=== PATIENT | female | born 1940 | race Caucasian/White ===

== ENCOUNTER 2018-07-28 20:59 | Outpatient (REF) | payer OTHER, SELFPAY ==
[2018-07-28 21:21] LABS: HCT 39.3 % (36.0-46.0); HGB 13.4 g/dL (12.0-15.5); Mean Corp. HGB Concentration 34.1 g/dL (32.0-36.0); Mean Corpuscular Hemoglobin 31.8 pg (27.0-33.0); Mean Corpuscular Volume 93.3 fL (80-95); Mean Platelet Volume 12.4 fL (8.0-11.0); RBC 4.21 m/cumm (4.00-5.20); RBC Distribution Width 13.1 % (11.7-14.6); White Blood Cell Count 5.16 k/cumm (4.4-10.8)
[2018-07-28 21:24] LABS: Platelet Count 102 x1000/uL (130-400)
[2018-07-28 22:44] LABS: TSH 2.44 uIU/mL (0.358-3.74)
[2018-07-28 23:32] LABS: Ferritin 80 ng/mL (8-388); Vitamin B12 361 pg/mL (193-986)
== END 2018-07-28 21:19 ==
LOC: NCHCN 20:59
PROVIDERS: PCP Nurse Practitioner Family; Visit Provider Nurse Practitioner Family
DX: E11.49 Type 2 diabetes mellitus with other diabetic neurological complication (principal); G25.81 Restless legs syndrome; I10 Essential (primary) hypertension; R53.83 Other fatigue
CPT/HCPCS: 85027; 82607; 82728; 84443

== ENCOUNTER 2018-10-27 11:48 | Outpatient (REF) | payer OTHER, SELFPAY ==
[2018-10-27 20:58] LABS: COMMENT (LAB VIEW ONLY) 81.17 mg/dL; Microalb ug/mg Crea 37.7 ug/mg Cr
== END 2018-10-27 12:08 ==
LOC: NCHCN 11:48
PROVIDERS: PCP Nurse Practitioner Family; Visit Provider Nurse Practitioner Family
DX: E11.49 Type 2 diabetes mellitus with other diabetic neurological complication (principal); K72.90 Hepatic failure, unspecified without coma; B37.2 Candidiasis of skin and nail; J06.9 Acute upper respiratory infection, unspecified; G25.81 Restless legs syndrome
CPT/HCPCS: 82043; 82570

== ENCOUNTER 2019-01-26 15:13 | Outpatient (REF) | payer OTHER, SELFPAY ==
[2019-01-26 22:21] LABS: ALT 40 U/L (14-59); AST 30 U/L (15-37); Albumin 3.7 g/dL (3.4-5.0); Alkaline Phosphatase 98 U/L (46-116); BUN 16 mg/dL (7-18); Bilirubin, Total 0.5 mg/dL (0.2-1.0); CREATININE 0.71 mg/dL (0.55-1.02); Calcium 9.6 mg/dL (8.5-10.1); Calculated LDL 74 mg/dL; Chloride 102 mmol/L (98-107); Cholesterol 165 mg/dL (50-200); Glucose 183 mg/dL (70-100); HDL Cholesterol 33 mg/dL (40-60); Potassium 3.8 mmol/L (3.5-5.1); Sodium 140 mmol/L (136-145); Total Protein 7.1 g/dL (6.4-8.2); Triglyceride 293 mg/dL (30-150)
== END 2019-01-26 15:33 ==
LOC: NCHCN 15:13
PROVIDERS: PCP Nurse Practitioner Family; Visit Provider Nurse Practitioner Family
DX: E78.2 Mixed hyperlipidemia (principal); I10 Essential (primary) hypertension
CPT/HCPCS: 80053; 80061

== ENCOUNTER 2019-08-05 12:12 | Outpatient (REF) | payer OTHER, SELFPAY ==
[2019-08-05 20:47] LABS: HCT 41.3 % (36.0-46.0); HGB 13.8 g/dL (12.0-15.5); Mean Corp. HGB Concentration 33.4 g/dL (32.0-36.0); Mean Corpuscular Hemoglobin 30.9 pg (27.0-33.0); Mean Corpuscular Volume 92.6 fL (80-95); Mean Platelet Volume 12.3 fL (8.0-11.0); Platelet Count 120 x1000/uL (130-400); RBC 4.46 m/cumm (4.00-5.20); RBC Distribution Width 12.6 % (11.7-14.6)
[2019-08-05 20:49] LABS: ALT 47 U/L (14-59); AST 33 U/L (15-37); Albumin 3.9 g/dL (3.4-5.0); Alkaline Phosphatase 110 U/L (46-116); Anion Gap 7.1 mmol/L (3-11); BUN 20 mg/dL (7-18); Bilirubin, Total 0.5 mg/dL (0.2-1.0); CO2 28.9 mmol/L (21.0-32.0); CREATININE 0.82 mg/dL (0.55-1.02); Calcium 9.3 mg/dL (8.5-10.1); Chloride 100 mmol/L (98-107); Glucose 264 mg/dL (74-106); Potassium 3.9 mmol/L (3.5-5.1); Sodium 136 mmol/L (136-145); Total Protein 7.5 g/dL (6.4-8.2)
[2019-08-05 20:52] LABS: Prothrombin Time 10.3 sec (9.3-11.0)
[2019-08-05 20:58] LABS: Hemoglobin A1C 7.7 % (3.8-5.6)
== END 2019-08-05 12:32 ==
LOC: NCHCN 12:12
PROVIDERS: PCP Nurse Practitioner Family; Visit Provider Nurse Practitioner Family
DX: E11.49 Type 2 diabetes mellitus with other diabetic neurological complication (principal); I10 Essential (primary) hypertension; K21.9 Gastro-esophageal reflux disease without esophagitis; K74.69 Other cirrhosis of liver
CPT/HCPCS: 80053; 85027; 83036; 85610

== ENCOUNTER 2019-09-01 20:53 | Outpatient (REF) | payer OTHER, SELFPAY | END 2019-09-01 21:13 | LOC: NCHCN 20:53 | PROVIDERS: PCP Nurse Practitioner Family; Visit Provider Nurse Practitioner Family | DX: N39.0 Urinary tract infection, site not specified (principal) | CPT/HCPCS: 87086 ==

== ENCOUNTER 2019-10-16 21:41 | Outpatient (REF) | payer OTHER, SELFPAY | END 2019-10-16 22:01 | LOC: NCHCN 21:41 | PROVIDERS: PCP Nurse Practitioner Family; Visit Provider Nurse Practitioner Family | DX: R82.998 Other abnormal findings in urine (principal); Z87.440 Personal history of urinary (tract) infections | CPT/HCPCS: 87086 ==

== ENCOUNTER 2019-11-10 21:25 | Outpatient (REF) | payer OTHER, SELFPAY ==
[2019-11-10 21:51] LABS: COMMENT (LAB VIEW ONLY) 55.73 mg/dL; Microalb ug/mg Crea 97.3 ug/mg Cr
== END 2019-11-10 21:45 ==
LOC: NCHCN 21:25
PROVIDERS: PCP Nurse Practitioner Family; Visit Provider Nurse Practitioner Family
DX: E11.49 Type 2 diabetes mellitus with other diabetic neurological complication (principal); K76.6 Portal hypertension; R39.9 Unspecified symptoms and signs involving the genitourinary system
CPT/HCPCS: 87077; 82043; 82570; 87086; 87186

== ENCOUNTER 2020-06-14 15:02 | Outpatient (REF) | payer MEDICARE, SELFPAY | END 2020-06-14 15:03 | disposition home or self-care (01) | LOC: NCHCN 15:02 | PROVIDERS: PCP Nurse Practitioner Family; Visit Provider Nurse Practitioner Family | DX: N39.0 Urinary tract infection, site not specified (principal) | CPT/HCPCS: 87077; 87086; 87186 ==

== ENCOUNTER 2020-06-28 12:31 | Outpatient (REF) | payer MEDICARE, SELFPAY ==
[2020-06-28 14:07] LABS: COMMENT (LAB VIEW ONLY) 86.91 mg/dL; Microalb ug/mg Crea 31.8 ug/mg Cr
== END 2020-06-28 12:32 | disposition home or self-care (01) ==
LOC: NCHCN 12:31
PROVIDERS: PCP Nurse Practitioner Family; Visit Provider Nurse Practitioner Family
DX: E11.49 Type 2 diabetes mellitus with other diabetic neurological complication (principal); E78.5 Hyperlipidemia, unspecified; R80.8 Other proteinuria
CPT/HCPCS: 82043; 82570

== ENCOUNTER 2020-08-23 13:51 | Outpatient (REF) | payer MEDICARE, SELFPAY | END 2020-08-23 13:52 | disposition home or self-care (01) | LOC: NCHCN 13:51 | PROVIDERS: PCP Nurse Practitioner Family; Visit Provider Nurse Practitioner Family | DX: R30.0 Dysuria (principal) | CPT/HCPCS: 87077; 87086; 87186 ==

== ENCOUNTER 2020-10-27 15:12 | Outpatient (REF) | payer MEDICARE, SELFPAY ==
[2020-10-29 13:01] LABS: COVID-19 RT-PCR UVMMC Result Negative (Negative)
== END 2020-10-27 15:13 | disposition home or self-care (01) ==
LOC: NCHCN 15:12
PROVIDERS: PCP Nurse Practitioner Family; Visit Provider Nurse Practitioner Family
DX: R05 Cough (principal); Z20.822 Contact with and (suspected) exposure to COVID-19
CPT/HCPCS: U0003

== ENCOUNTER 2020-11-02 15:57 | Outpatient (REF) | payer MEDICARE, SELFPAY | END 2020-11-02 15:58 | disposition home or self-care (01) | LOC: NCHCN 15:57 | PROVIDERS: PCP Nurse Practitioner Family; Visit Provider Internal Medicine | DX: R30.0 Dysuria (principal) | CPT/HCPCS: 87077; 87086; 87186 ==

== ENCOUNTER 2021-02-21 16:05 | Outpatient (REF) | payer MEDICARE, SELFPAY | END 2021-02-21 16:06 | disposition home or self-care (01) | LOC: NCHCN 16:05 | PROVIDERS: PCP Nurse Practitioner Family; Visit Provider Nurse Practitioner Family | DX: R30.0 Dysuria (principal) | CPT/HCPCS: 87077; 87086; 87186 ==

== ENCOUNTER 2021-03-17 18:49 | Outpatient (REF) | payer MEDICARE, SELFPAY | END 2021-03-17 18:50 | disposition home or self-care (01) | LOC: NCHCN 18:49 | PROVIDERS: PCP Nurse Practitioner Family; Visit Provider Nurse Practitioner Family | DX: R30.0 Dysuria (principal) | CPT/HCPCS: 87077; 87086; 87186 ==

== ENCOUNTER 2021-06-06 18:10 | Outpatient (REF) | payer MEDICARE, SELFPAY ==
[2021-06-06 16:24] LABS: COMMENT (LAB VIEW ONLY) 54.71 mg/dL; Microalb ug/mg Crea 59.2 ug/mg Cr
--- OUTSIDE RECORDS SUMMARY | 2021-06-06 18:12 | XMS_ITS | CCD ---
:1940 Author Care Team Providers Name Role Phone MD KATHIE Attending Physician Unavailable MD SALLIE Er Physician 1 Unavailable Vital Signs Unknown or Not Available. Allergies Allergy Code Allergy Type Reaction Status No Known Drug Allergies 0 No known drug allergies Active Procedures Unknown or Not Available. History of Immunizations Unknown or Not Available. Problems Unknown or Not Available. Results COMPREHENSIVE METABOLIC PANEL (CMP) - Co llect Date/Time: 10/03/2020 14:03 Test Name Code Test Result Test Units Test Ref Range GLUCOSE 2345-7 115 mg/dL L=70 H=11 6 BUN 3094-0 20 mg/dL L=6 H=25 CREATININE 2160-0 0.74 mg/dL L=0.51 H=0.95 SODIUM SERUM 2951-2 139 mmol/L L=136 H=14 5 POTASSIUM SERUM 2823-3 4.4 mmol/L L=3.4 H =5.2 CHLORIDE SERUM 2075-0 102 mmol/L L=96 H= 110 CARBON DIOXIDE (CO2) 2028-9 28 mmol/L L=22 H=34 ANION GAP 57845-8 8.8 mmol/L CALCIUM SERUM 99834-0 9.6 mg/dL L=8.2 H=10.2 BILIRUBIN TOTAL 1975-2 0.6 mg/dL L=0.0 H =1.3 ALK. PHOS. 6768-6 87 U/L L=46 H=11 6 SGOT (AST) 1920-8 22 U/L L=15 H=37 SGPT (ALT) 1742-6 33 U/L L=12 H=78 TOTAL PROTEIN 2885-2 7.3 gm/dL L=6.0 H=8 .0 ALBUMIN 1751-7 3.9 gm/dL L=3.4 H=5. 0 AGE 80 years eGFR (non-Afr.Amer.) 04168-5 76 mL/min eGFR (Afr-Nepalese) 66865-8 92 mL/min TROPONIN-I ADM. - Collect Date/Time: 14:03 Test Name Code Test Result Test Units Test Ref Range TROPONIN-I 55072-6 <0.017 ng/mL L=0.000 H=0. 060 TSH THYROID STIMULATING HORMONE - Collec t Date/Time: 10/03/2020 14:03 Test Name Code Test Result Test Units Test Ref Range TSH 3014-8 1.863 uIU/mL L=0.360 H=3. 740 CBC W/ DIFFERENTIAL - Collect Date/Time: 10/03/2020 14:03 Test Name Code Test Result Test Units Test Ref Range WBC 6.03 th/cmm L=5.00 H=10.00 NEUT % 68.3 % L=40.0 H=80 .0 LYMPH % 22.1 % L=10.0 H=50 .0 MONO % 6.8 % L=2.0 H=12 .0 EOS % 2.2 % L=0.0 H=8. 0 BASO % 0.3 % L=0.0 H=3. 0 IG % 0.3 % L=0.0 H=1. 1 NRBC % 0.0 % L=0.0 H=0. 0 NEUT abs count 4.1 th/cmm L=1.6 H= 8.4 LYMPH abs count 1.3 th/cmm L=1.5 H =4.0 MONO abs count 0.4 th/cmm L=0.2 H= 1.0 EOS abs count 0.1 th/cmm L=0.0 H=0 .5 BASO abs count 0.0 th/cmm L=0.0 H= 0.2 IG abs count 0.0 th/cmm L=0.0 H=0. 1 NRBC abs count 0.0 mil/cmm L=0.0 H= 0.0 RBC 4.12 mil/cmm L=3.90 H=5. 40 HEMOGLOBIN 13.0 gm/dL L=12.0 H=16 .0 HEMATOCRIT 39 % L=37 H=47 MCV 94 fL L=82 H=92 MCH 31.6 pg L=27.0 H=31 .0 MCHC 33.7 % L=32.0 H=36 .0 RDW-SD 44.0 fL L=39.0 H=49 .0 PLATELET COUNT 87 th/cmm L=150 H= 450 Active Medications Medication Code Dose Units Frequency Route Modification Start Date/Time Cephalexin 316670 1 TABLET THREE TIMES ORAL 0 500MG Oral A DAY 13:22 Tablet Prescription Detail TAKE 1 TABLET ORAL THREE JARETT ES A DAY Amitriptyline 50MG 796629 50 MILLIGRAMS BEDTIME ORAL Oral Tablet 13:20 Prescription Detail TAKE 50 MILLIGRAMS ORAL BEDT SAHIL Atorvastatin 073291 20 MILLIGRAMS BEDTIME ORAL 08/20/19 20 Calcium 20MG Oral 13:20 Tablet Prescription Detail TAKE 20 MILLIGRAMS ORAL BEDT SAHIL Fish Oil 69010223412 3 CAPSULE DAILY ORAL 08/20/2019 1000MG Oral 13:20 Capsule, Liquid Filled Prescription Detail TAKE 3 CAPSULE ORAL DAILY Gabapentin 800MG 054869 1 TABLET TWICE A ORAL 020 Oral Tablet DAY 13:20 Prescription Detail TAKE 1 TABLET ORAL TWICE A D AY glipiZIDE 10MG 963325 10 MILLIGRAMS DAILY ORAL 2019 Oral Tablet, 13:20 Extended Release Prescription Detail TAKE 10 MILLIGRAMS ORAL CHANDLER Y Lisinopril 20MG 708847 20 MILLIGRAMS DAILY ORAL 08/19 Oral Tablet 13:20 Prescription Detail TAKE 20 MILLIGRAMS ORAL CHANDLER Y Loratadine 10MG 638831 10 MILLIGRAMS DAILY ORAL 08/19 Oral Tablet 13:20 Prescription Detail TAKE 10 MILLIGRAMS ORAL CHANDLER Y metFORMIN HCl 211160 9747 MILLIGRAMS TWICE A ORAL 020 1000MG Oral DAY WITH 13:20 Tablet FOOD Prescription Detail TAKE 1000 MILLIGRAMS ORAL TW ICE A DAY WITH FOOD Multiple 6740716 1 EACH DAILY ORAL 08/20/2019 Vitamin 13:20 Formula Oral Tablet Prescription Detail TAKE 1 EACH ORAL DAILY Pramipexole 563864 2 TABLET BEDTIME ORAL 08/20/2019 Dihydrochloride 13:20 0.125MG Oral Tablet Prescription Detail TAKE 2 TABLET ORAL BEDTIME Probiotic 250MG 564555 3 TABLET DAILY ORAL 08/20/19 20 Oral Capsule 13:20 Prescription Detail TAKE 3 TABLET ORAL DAILY Medications Administered During Visit Unknown or Not Available. Encounters Encounter Diagnosis Diagnosis Code Start Date Other peripheral vertigo, unspecified ear [id number] 10/03/2020 Social History Smoking Status Code Start Date End Date Never smoker [id number] Patient Decision Aids Unknown or Not Available. Discharge Instructions You were admitted to [facility] on 10/03/2020 13:07 with a principal diagnosis of Other peripheral vertigo, u nspecified ear You had the following tests done: CBC W/ DIFFERENTIAL COMPREHENSIVE METABOLIC PANEL (CMP) TROPONIN-I ADM. TSH THYROID STIMULATING HORMONE You were discharged from [facility] on 10/03/2020 16:37 Should you have any questions prior to d ischarge, please contact a member of your healthcare team. If you have left the ho spital and have any questions, please contact your primary care physician. Chief Complaint and Reason For Visit Chief Complaint Date of Onset DIZZY DISORIENTED Function Status Unknown or Not Available. Plan of Care Unknown or Not Available. Referral/Transition of Care Unknown or Not Available.
--- OUTSIDE RECORDS SUMMARY | 2021-06-06 18:12 | XMS_ITS | CCD ---
:1940 Author Care Team Providers Name Role Phone TATEL Attending Physician Unavailable Vital Signs Unknown or Not Available. Allergies Allergy Code Allergy Type Reaction Status No Known Drug Allergies 0 No known drug allergies Active Procedures Unknown or Not Available. History of Immunizations Unknown or Not Available. Problems Unknown or Not Available. Results Unknown or Not Available. Active Medications Medication Code Dose Units Frequency Route Modification Start Date/Time Cephalexin 19730809 1 TABLET THREE TIMES ORAL 0 500MG Oral A DAY 13:22 Tablet Prescription Detail TAKE 1 TABLET ORAL THREE JARETT ES A DAY Amitriptyline 50MG 620199 50 MILLIGRAMS BEDTIME ORAL Oral Tablet 13:20 Prescription Detail TAKE 50 MILLIGRAMS ORAL BEDT SAHIL Atorvastatin 756666 20 MILLIGRAMS BEDTIME ORAL 08/20/19 20 Calcium 20MG Oral 13:20 Tablet Prescription Detail TAKE 20 MILLIGRAMS ORAL BEDT SAHIL Fish Oil 21361434006 3 CAPSULE DAILY ORAL 08/20/2019 1000MG Oral 13:20 Capsule, Liquid Filled Prescription Detail TAKE 3 CAPSULE ORAL DAILY Gabapentin 800MG 101213 1 TABLET TWICE A ORAL 020 Oral Tablet DAY 13:20 Prescription Detail TAKE 1 TABLET ORAL TWICE A D AY glipiZIDE 10MG 031828 10 MILLIGRAMS DAILY ORAL 2019 Oral Tablet, 13:20 Extended Release Prescription Detail TAKE 10 MILLIGRAMS ORAL CHANDLER Y Lisinopril 20MG 275944 20 MILLIGRAMS DAILY ORAL 08/19 Oral Tablet 13:20 Prescription Detail TAKE 20 MILLIGRAMS ORAL CHANDLER Y Loratadine 10MG 097289 10 MILLIGRAMS DAILY ORAL 08/19 Oral Tablet 13:20 Prescription Detail TAKE 10 MILLIGRAMS ORAL CHANDLER Y metFORMIN HCl 965448 4369 MILLIGRAMS TWICE A ORAL 020 1000MG Oral DAY WITH 13:20 Tablet FOOD Prescription Detail TAKE 1000 MILLIGRAMS ORAL TW ICE A DAY WITH FOOD Multiple 7859333 1 EACH DAILY ORAL 08/20/2019 Vitamin 13:20 Formula Oral Tablet Prescription Detail TAKE 1 EACH ORAL DAILY Pramipexole 151173 2 TABLET BEDTIME ORAL 08/20/2019 Dihydrochloride 13:20 0.125MG Oral Tablet Prescription Detail TAKE 2 TABLET ORAL BEDTIME Probiotic 250MG 330890 3 TABLET DAILY ORAL 08/20/19 20 Oral Capsule 13:20 Prescription Detail TAKE 3 TABLET ORAL DAILY Medications Administered During Visit Unknown or Not Available. Encounters Encounter Diagnosis Diagnosis Code Start Date Benign paroxysmal vertigo, left ear [id number] 10/07 Social History Smoking Status Code Start Date End Date Never smoker [id number] Patient Decision Aids Unknown or Not Available. Discharge Instructions You were admitted to [facility] on 11/01/2020 07:56 with a principal diagnosis of Benign paroxysmal vertigo, left ear You were discharged from [facility] on 11/02/2020 14:57 Should you have any questions prior to d ischarge, please contact a member of your healthcare team. If you have left the spital and have any questions, please contact your primary care physician. Chief Complaint and Reason For Visit Unknown or Not Available. Function Status Unknown or Not Available. Plan of Care Unknown or Not Available. Referral/Transition of Care Unknown or Not Available.
--- OUTSIDE RECORDS SUMMARY | 2021-06-06 18:12 | XMS_ITS | CCD ---
:1940 Author Care Team Providers Name Role Phone LYUBOV Attending Physician Unavailable LYUBOV Rounding (Secondary) Physician Unavailab le Vital Signs Unknown or Not Available. Allergies [...] THREE JARETT ES A DAY Amitriptyline 50MG 629800 50 MILLIGRAMS BEDTIME ORAL Oral Tablet 13:20 Prescription Detail TAKE 50 MILLIGRAMS ORAL BEDT SAHIL Atorvastatin 098918 20 MILLIGRAMS BEDTIME ORAL 08/20/19 20 Calcium 20MG Oral 13:20 Tablet Prescription Detail TAKE 20 MILLIGRAMS ORAL BEDT SAHIL Fish Oil 16502610363 3 CAPSULE DAILY ORAL 08/20/2019 1000MG Oral 13:20 Capsule, Liquid Filled Prescription Detail TAKE 3 CAPSULE ORAL DAILY Gabapentin 800MG 448748 1 TABLET TWICE A ORAL 020 Oral Tablet DAY 13:20 Prescription Detail TAKE 1 TABLET ORAL TWICE A D AY glipiZIDE 10MG 098249 10 MILLIGRAMS DAILY ORAL 2019 Oral Tablet, 13:20 Extended Release Prescription Detail TAKE 10 MILLIGRAMS ORAL CHANDLER Y Lisinopril 20MG 773941 20 MILLIGRAMS DAILY ORAL 08/19 Oral Tablet 13:20 Prescription Detail TAKE 20 MILLIGRAMS ORAL CHANDLER Y Loratadine 10MG 389041 10 MILLIGRAMS DAILY ORAL 08/19 Oral Tablet 13:20 Prescription Detail TAKE 10 MILLIGRAMS ORAL CHANDLER Y metFORMIN HCl 113018 0528 MILLIGRAMS TWICE A ORAL 020 1000MG Oral DAY WITH 13:20 Tablet FOOD Prescription Detail TAKE 1000 MILLIGRAMS ORAL TW ICE A DAY WITH FOOD Multiple 6074378 1 EACH DAILY ORAL 08/20/2019 Vitamin 13:20 Formula Oral Tablet Prescription Detail TAKE 1 EACH ORAL DAILY Pramipexole 135996 2 TABLET BEDTIME ORAL 08/20/2019 Dihydrochloride 13:20 0.125MG Oral Tablet Prescription Detail TAKE 2 TABLET ORAL BEDTIME Probiotic 250MG 140939 3 TABLET DAILY ORAL 08/20/19 20 Oral Capsule 13:20 Prescription Detail TAKE 3 TABLET ORAL DAILY Medications Administered During Visit Unknown or Not Available. Encounters Encounter Diagnosis Diagnosis Code Start Date Restless legs syndrome [id number] 02/23/2021 Social History Smoking Status Code Start Date End Date Never smoker [id number] Patient Decision Aids Unknown or Not Available. Discharge Instructions You were admitted to [facility] on 02/23/2021 14:37 with a principal diagnosis of Restless legs syndrome You were discharged from [facility] on 02/23/2021 00:00 Should you have any questions prior to [...]
--- OUTSIDE RECORDS SUMMARY | 2021-06-06 18:12 | XMS_ITS | CCD ---
:1940 Author Care Team Providers Name Role Phone MD HANSA Attending Physician Unavailable Vital Signs Unknown or Not Available. Allergies Allergy Code Allergy Type Reaction Status No Known Drug Allergies 0 No known drug allergies Active Procedures Unknown or Not Available. History of Immunizations Unknown or Not Available. Problems Unknown or Not Available. Results URINALYSIS ROUTINE - Collect Date/Time: 11/17/2020 15:00 Test Name Code Test Result Test Units Test Ref Range COLLECTION MODE: CLEAN CATCH N/A Color 5778-6 ORANGE N/A yellow Appearance 5767-9 HAZY N/A clear Glucose urine 60503-8 DNR N/A negative mg/ dl Bilirubin 5770-3 DNR N/A negative Ketones 2514-8 DNR N/A negative mg/d l Spec gravity 5811-5 DNR N/A 1.003 - 1.030 pH urine 2756-5 DNR N/A 5.0 - 7.0 Protein 78568-1 DNR N/A negative mg/d l Urobilinogen 10428-6 DNR N/A <or= 1 EU/d l Nitrite 5802-4 DNR N/A negative Blood 5794-3 DNR N/A negative Leukocytes 51482-4 DNR N/A negative MICROSCOPIC* INDICATED N/A WBCs 82199-2 25-100 N/A 0-5 / hpf RBCs 52772-8 5-10 N/A 0-5 / hpf Epith cells 95782-4 none N/A 0-5 / hpf Crystals none N/A none Bacteria large N/A none Mucus 8247-9 none N/A none Casts 21830-0 none N/A none /lp f Active Medications Medication Code Dose Units Frequency Route Modification Start Date/Time Cephalexin 661280 1 TABLET THREE TIMES ORAL 0 500MG Oral A DAY 13:22 Tablet Prescription Detail TAKE 1 TABLET ORAL THREE JARETT ES A DAY Amitriptyline 50MG 951110 50 MILLIGRAMS BEDTIME ORAL Oral Tablet 13:20 Prescription Detail TAKE 50 MILLIGRAMS ORAL BEDT SAHIL Atorvastatin 337282 20 MILLIGRAMS BEDTIME ORAL 08/20/19 20 Calcium 20MG Oral 13:20 Tablet Prescription Detail TAKE 20 MILLIGRAMS ORAL BEDT SAHIL Fish Oil 47351792511 3 CAPSULE DAILY ORAL 08/20/2019 1000MG Oral 13:20 Capsule, Liquid Filled Prescription Detail TAKE 3 CAPSULE ORAL DAILY Gabapentin 800MG 821687 1 TABLET TWICE A ORAL 020 Oral Tablet DAY 13:20 Prescription Detail TAKE 1 TABLET ORAL TWICE A D AY glipiZIDE 10MG 472986 10 MILLIGRAMS DAILY ORAL 2019 Oral Tablet, 13:20 Extended Release Prescription Detail TAKE 10 MILLIGRAMS ORAL CHANDLER Y Lisinopril 20MG 455732 20 MILLIGRAMS DAILY ORAL 08/19 Oral Tablet 13:20 Prescription Detail TAKE 20 MILLIGRAMS ORAL CHANDLER Y Loratadine 10MG 408342 10 MILLIGRAMS DAILY ORAL 08/19 Oral Tablet 13:20 Prescription Detail TAKE 10 MILLIGRAMS ORAL CHANDLER Y metFORMIN HCl 656170 0287 MILLIGRAMS TWICE A ORAL 020 1000MG Oral DAY WITH 13:20 Tablet FOOD Prescription Detail TAKE 1000 MILLIGRAMS ORAL TW ICE A DAY WITH FOOD Multiple 3862155 1 EACH DAILY ORAL 08/20/2019 Vitamin 13:20 Formula Oral Tablet Prescription Detail TAKE 1 EACH ORAL DAILY Pramipexole 225356 2 TABLET BEDTIME ORAL 08/20/2019 Dihydrochloride 13:20 0.125MG Oral Tablet Prescription Detail TAKE 2 TABLET ORAL BEDTIME Probiotic 250MG 626585 3 TABLET DAILY ORAL 08/20/19 20 Oral Capsule 13:20 Prescription Detail TAKE 3 TABLET ORAL DAILY Medications Administered During Visit Unknown or Not Available. Encounters Encounter Diagnosis Diagnosis Code Start Date Dysuria [id number] 11/17/2020 Social History Smoking Status Code Start Date End Date Never smoker [id number] Patient Decision Aids Unknown or Not Available. Discharge Instructions You were admitted to [facility] on 11/17/2020 10:53 with a principal diagnosis of Dysuria You had the following tests done: URINALYSIS ROUTINE You were discharged from [facility] on 11/17/2020 10:53 Should you have any questions prior to [...]
--- OUTSIDE RECORDS SUMMARY | 2021-06-06 18:12 | XMS_ITS | CCD ---
:1940 Author Care Team Providers Name Role Phone Marianela SANTO Attending Physician Unavailable Vital Signs Unknown or Not Available. Allergies Allergy Code Allergy Type Reaction Status No Known Drug Allergies 0 No known drug allergies Active Procedures Unknown or Not Available. History of Immunizations Unknown or Not Available. Problems Unknown or Not Available. Results CULT URINE CULTURE* - Collect Date/Time: 04/06/2021 15:43 Test Name Code Test Result Test Units Test Ref Range COLLECTION MODE: CLEAN CATCH N/A URINALYSIS ROUTINE* - Collect Date/Time: 04/06/2021 15:43 Test Name Code Test Result Test Units Test Ref Range COLLECTION MODE: CLEAN CATCH N/A Color 5778-6 YELLOW N/A yellow Appearance 5767-9 HAZY N/A clear Glucose urine 95951-6 NEGATIVE N/A negative mg/ dl Bilirubin 5770-3 NEGATIVE N/A negative Ketones 2514-8 NEGATIVE N/A negative mg/d l Spec gravity 5811-5 1.025 N/A 1.003 - 1.030 pH urine 2756-5 5.5 N/A 5.0 - 7.0 Protein 36999-9 NEGATIVE N/A negative mg/d l Urobilinogen 19214-8 0.2 N/A <or= 1 EU/d l Nitrite 5802-4 NEGATIVE N/A negative Blood 5794-3 TRACE-IN N/A negative Leukocytes 14743-3 MODERATE N/A negative MICROSCOPIC* INDICATED N/A WBCs 21566-9 25-100 N/A 0-5 / hpf RBCs 35411-9 0-5 N/A 0-5 / hpf Epith cells 68526-7 0-5 N/A 0-5 / hpf Cell types squam+trans N/A Crystals none N/A none Bacteria minimal N/A none Mucus 8247-9 none N/A none Casts 20474-4 none N/A none /lp f Active Medications Medication Code Dose Units Frequency Route Modification Start Date/Time Cephalexin 110879 1 TABLET THREE TIMES ORAL 0 500MG Oral A DAY 13:22 Tablet Prescription Detail TAKE 1 TABLET ORAL THREE JARETT ES A DAY Amitriptyline 50MG 708507 50 MILLIGRAMS BEDTIME ORAL Oral Tablet 13:20 Prescription Detail TAKE 50 MILLIGRAMS ORAL BEDT SAHIL Atorvastatin 687918 20 MILLIGRAMS BEDTIME ORAL 08/20/19 20 Calcium 20MG Oral 13:20 Tablet Prescription Detail TAKE 20 MILLIGRAMS ORAL BEDT SAHIL Fish Oil 33648349401 3 CAPSULE DAILY ORAL 08/20/2019 1000MG Oral 13:20 Capsule, Liquid Filled Prescription Detail TAKE 3 CAPSULE ORAL DAILY Gabapentin 800MG 913089 1 TABLET TWICE A ORAL 020 Oral Tablet DAY 13:20 Prescription Detail TAKE 1 TABLET ORAL TWICE A D AY glipiZIDE 10MG 101730 10 MILLIGRAMS DAILY ORAL 2019 Oral Tablet, 13:20 Extended Release Prescription Detail TAKE 10 MILLIGRAMS ORAL CHANDLER Y Lisinopril 20MG 826321 20 MILLIGRAMS DAILY ORAL 08/19 Oral Tablet 13:20 Prescription Detail TAKE 20 MILLIGRAMS ORAL CHANDLER Y Loratadine 10MG 678396 10 MILLIGRAMS DAILY ORAL 08/19 Oral Tablet 13:20 Prescription Detail TAKE 10 MILLIGRAMS ORAL CHANDLER Y metFORMIN HCl 663728 1294 MILLIGRAMS TWICE A ORAL 020 1000MG Oral DAY WITH 13:20 Tablet FOOD Prescription Detail TAKE 1000 MILLIGRAMS ORAL TW ICE A DAY WITH FOOD Multiple 7569852 1 EACH DAILY ORAL 08/20/2019 Vitamin 13:20 Formula Oral Tablet Prescription Detail TAKE 1 EACH ORAL DAILY Pramipexole 364115 2 TABLET BEDTIME ORAL 08/20/2019 Dihydrochloride 13:20 0.125MG Oral Tablet Prescription Detail TAKE 2 TABLET ORAL BEDTIME Probiotic 250MG 234427 3 TABLET DAILY ORAL 08/20/19 20 Oral Capsule 13:20 Prescription Detail TAKE 3 TABLET ORAL DAILY Medications Administered During Visit Unknown or Not Available. Encounters Encounter Diagnosis Diagnosis Code Start Date Dysuria [id number] 04/06/2021 Social History Smoking Status Code Start Date End Date Never smoker [id number] Patient Decision Aids Unknown or Not Available. Discharge Instructions You were admitted to [facility] on 04/06/2021 15:16 with a principal diagnosis of Dysuria You had the following tests done: CULT URINE CULTURE* URINALYSIS ROUTINE* You were discharged from [facility] on 04/06/2021 15:16 Should you have any questions prior to [...]
== END 2021-06-06 18:11 | disposition home or self-care (01) ==
LOC: NCHCN 18:10
PROVIDERS: PCP Nurse Practitioner Family; Visit Provider Nurse Practitioner Family
DX: I10 Essential (primary) hypertension (principal); E11.49 Type 2 diabetes mellitus with other diabetic neurological complication
CPT/HCPCS: 82043; 82570

== ENCOUNTER 2021-09-05 16:25 | Outpatient (REF) | payer MEDICARE, SELFPAY ==
[2021-09-05 16:21] LABS: COMMENT (LAB VIEW ONLY) 132.26 mg/dL; Microalb ug/mg Crea 41.4 ug/mg Cr
== END 2021-09-05 16:26 | disposition home or self-care (01) ==
LOC: NCHCN 16:25
PROVIDERS: PCP Nurse Practitioner Family; Visit Provider Nurse Practitioner Family
DX: E11.49 Type 2 diabetes mellitus with other diabetic neurological complication (principal); R80.9 Proteinuria, unspecified
CPT/HCPCS: 82043; 82570

== ENCOUNTER 2022-10-31 15:32 | Outpatient (REF) | payer MEDICARE, SELFPAY ==
[2022-10-31 21:55] LABS: COMMENT (LAB VIEW ONLY) 70.15 mg/dL; Microalb ug/mg Crea 8.4 ug/mg Cr
== END 2022-10-31 15:33 | disposition home or self-care (01) ==
LOC: NCHCN 15:32
PROVIDERS: PCP Nurse Practitioner Family; Visit Provider Family Medicine
DX: E11.49 Type 2 diabetes mellitus with other diabetic neurological complication (principal)
CPT/HCPCS: 82043; 82570

== ENCOUNTER 2023-01-30 17:47 | Outpatient (REF) | payer MEDICARE, SELFPAY ==
[2023-01-30 21:34] LABS: HGB 12.4 g/dL (11.2-15.7); MCV 92 fL (80-95)
[2023-01-30 21:36] LABS: HCT 37.8 % (36.0-46.0); MCHC 32.8 % (32.0-36.0); MPV 12.6 fL (8.0-11.0); RBC 4.13 10^6/uL (3.93-5.22); RDW 13.1 % (11.7-14.6); RDW-SD 44.1 fL; WBC 5.08 10^3/uL (4.4-10.8)
[2023-01-30 21:44] LABS: Prothrombin Time 9.8 sec (9.1-11.1)
[2023-01-30 21:56] LABS: Platelet Count 88 10^3/uL (130-400)
[2023-01-30 22:05] LABS: ALT 42 U/L (14-59); AST 34 U/L (15-37); Albumin 3.7 g/dL (3.4-5.0); Alkaline Phosphatase 139 U/L (46-116); Anion Gap 9.8 mmol/L (3-11); BUN 23 mg/dL (7-18); Bilirubin, Total 0.5 mg/dL (0.2-1.0); CO2 27.2 mmol/L (21.0-32.0); CREATININE 0.7 mg/dL (0.55-1.02); Calcium 10.2 mg/dL (8.5-10.1); Chloride 105 mmol/L (98-107); Estimated GFR 86.83 (mL/min/1.73m2); Glucose 140 mg/dL (74-106); Sodium 142 mmol/L (136-145); Total Protein 7.2 g/dL (6.4-8.2)
== END 2023-01-30 17:48 | disposition home or self-care (01) ==
LOC: NCHCN 17:47
PROVIDERS: PCP Nurse Practitioner Family; Visit Provider Family Medicine
DX: I10 Essential (primary) hypertension (principal); K74.69 Other cirrhosis of liver
CPT/HCPCS: 80053; 85027; 85610

== ENCOUNTER 2023-10-25 14:48 | Outpatient (REF) | payer MEDICARE, SELFPAY ==
[2023-10-26 12:51] LABS: Bacterial Vaginosis (BV) Negative (Negative); Candida glabrata Positive (Negative); Candida species group Positive (Negative); Trichomonas vaginalis Negative (Negative)
== END 2023-10-25 14:49 | disposition home or self-care (01) ==
LOC: NCHCN 14:48
PROVIDERS: PCP Nurse Practitioner Family; Visit Provider Registered Nurse
DX: N89.8 Other specified noninflammatory disorders of vagina (principal); R21 Rash and other nonspecific skin eruption; B37.31 Acute candidiasis of vulva and vagina
CPT/HCPCS: 81513; 87481; 87661

== ENCOUNTER 2023-12-02 18:24 | Outpatient (REF) | payer MEDICARE, SELFPAY ==
--- OUTSIDE RECORDS SUMMARY | 2023-12-02 18:28 | XMS_ITS ---
Author Organization Unknown Address [address] [place] [phone] Phone Care Team Providers Care Hospital Fellow Name Role Phone HANSA Bear Attending Unavailable JOHN Guaman Primary Unavailable Results CULT URINE CULTURE* - [facility] t Date/Time: 04/06/2021 15:43 [facility] ID: [id number] [address] [place] [address], [phone] LOINC: 630-4 Test Value Unit Reference Range Code Code System Flag COLLECTION MODE: CLEAN CATCH URINALYSIS ROUTINE* - [facility] t Date/Time: 04/06/2021 15:43 [facility] ID: [id number] [address] [place], [place], [address] LOINC: Test Value Unit Reference Range Code Code System Flag COLLECTION MODE: CLEAN CATCH Color YELLOW yellow 5778-6 LOINC Appearance HAZY clear 5767-9 LOINC Glucose urine NEGATIVE negative mg/dl 05725-0 LOINC Bilirubin NEGATIVE negative 5770-3 LOINC Ketones NEGATIVE negative mg/dl 2514-8 LOINC Spec gravity 1.025 1.003 - 1.030 5811-5 LOINC pH urine 5.5 5.0 - 7.0 2756-5 LOINC Protein NEGATIVE negative mg/dl 10095-6 LOINC Urobilinogen 0.2 <or= 1 EU/dl 40249-1 LOINC Nitrite NEGATIVE negative 5802-4 LOINC Blood TRACE-IN negative 5794-3 LOINC A Leukocytes MODERATE negative 68425-6 LOINC A MICROSCOPIC* INDICATED WBCs 25-100 0-5 / hpf 89333-5 LOINC RBCs 0-5 0-5 / hpf 43036-3 LOINC Epith cells 0-5 0-5 / hpf 16913-1 LOINC Cell types squam+trans Crystals none none Bacteria minimal none Mucus none none 8247-9 LOINC Casts none none /lpf 35333-4 LOINC Other 15547-9 LOINC Social History Type Status Start Date End Date Code Code Syst em Smoking History Never smoker (Never Smoked) 473002921 SNOMED CT Sex Female Medications Medication Start Date End Date Route Frequency Dose Code Code System Medication Instructions Home Meds Amitriptyline 50MG Oral Tablet 08/20/2019 01/02/2022 ORAL BEDTIME 50 MILLIGRAMS 150235 RxNorm TAKE 50 MILLIGRAMS ORAL BEDTIME Atorvastatin Calcium 20MG Oral Tablet 08/20/2019 Unknown ORAL BEDTIME 20 MILLIGRAMS 835812 RxNorm TAKE 20 MILLIGRAMS ORAL BEDTIME Fish Oil 1000MG Oral Capsule, Liquid Filled 08/20/2019 Unknown ORAL DAILY 3 CAPSULE 857825 RxNorm TAKE 3 CAPSULE ORAL DAILY Gabapentin 800MG Oral Tablet 08/20/2019 Unknown ORAL TWICE A DAY 1 TABLET 226924 RxNorm TAKE 1 TABLET ORAL TWICE A DAY Lisinopril 20MG Oral Tablet 08/20/2019 Unknown ORAL DAILY 20 MILLIGRAMS 776768 RxNorm TAKE 20 MILLIGRAMS ORAL DAILY Loratadine 10MG Oral Tablet 08/20/2019 01/02/2022 ORAL DAILY 10 MILLIGRAMS 266124 RxNorm TAKE 10 MILLIGRAMS ORAL DAILY Multiple Vitamin Formula Oral Tablet 08/20/2019 Unknown ORAL DAILY 1 unit(s) 9722947 RxNorm TAKE 1 EACH ORAL DAILY Pramipexole Dihydrochlorid e 0.125MG Oral Tablet 08/20/2019 09/30/2023 ORAL BEDTIME 2 TABLET 520317 RxNorm TAKE 2 TABLET ORAL BEDTIME Probiotic 250MG Oral Capsule 08/20/2019 01/02/2022 ORAL DAILY 3 TABLET 079321 RxNorm TAKE 3 TABLET ORAL DAILY glipiZIDE 10MG Oral Tablet, Extended Release 08/20/2019 Unknown ORAL DAILY 10 MILLIGRAMS 590829 RxNorm TAKE 10 MILLIGRAMS ORAL DAILY metFORMIN HCl 1000MG Oral Tablet 08/20/2019 Unknown ORAL TWICE A DAY WITH FOOD 1000 MILLIGRAMS 505453 RxNorm TAKE 1000 MILLIGRAMS ORAL TWICE A DAY WITH FOOD Cephalexin 500MG Oral Tablet 08/20/2019 01/02/2022 ORAL THREE TIMES A DAY 1 TABLET 776052 RxNorm TAKE 1 TABLET ORAL THREE TIMES A DAY Keflex 500MG Oral Capsule 01/02/2022 09/30/2023 ORAL THREE TIMES A DAY 1 CAPSULE 900913 RxNorm TAKE 1 CAPSULE ORAL THREE TIMES A DAY Nystatin 711224X/1ML Oral Suspension 01/02/2022 09/30/2023 ORAL FOUR TIMES A DAY 5 mL 684274 RxNorm TAKE 5 mL ORAL FOUR TIMES A DAY Hospital Discharge Instructions Should you have any questions prior to discharge, please contact a member of your healthcare team. If you have left the hospital and have any questions, please contact your primary care physician. Reason For Referral No Data Found Problems Problem Start Date Resolved Date Status Code Code System HTN 08/20/2019 resolved 91815249 SNOMED-CT PERSONAL HISTORY OF BLADDER CA 08/20/2019 resolved 510407288 SNOMED-CT NON-INSULIN DEPENDENT DIABETES MELLITUS 08/20/2019 resolved 19276584 SNOMED-CT 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 431339441 SNOMED-CT CIRRHOSIS - NON-ALCOHOLIC 01/02/2022 resolved 266 135965 SNOMED-CT HIGH CHOLESTEROL 10/01/2023 resolved 52544671 SN OMED-CT Allergies and Adverse Reactions Allergy Substance Reaction Severity Start Date Concern Status Co de Code System CODEINE Active 2670 RxNorm Plan of Treatment NM MPI STR/RST 05/15/2023 CT CHEST W/O CONTRAST 05/18/2022 CT CHEST W/O CONTRAST 03/26/2022 MRI BRAIN W/O CONTRAST 01/25/2021 Encounters Encounter Diagnosis Start Date Code Code Sys tem Dysuria 04/06/2021 [id number] SNOMED-CT Personal Care Team Section Performer Name Performer Role Active Date Inactive Da te
--- OUTSIDE RECORDS SUMMARY | 2023-12-02 18:28 | XMS_ITS ---
Author Organization Unknown Address [address] [place] [address] [phone] Phone Care Team Providers Care Creative Writing English Professor Name Role Phone LYNN DANIELLE Registered Nurse Unavailable NOLAN Grimaldo Attending Unavailable JORGE LUIS [facility]man [facility] Unavailable JOHN Guaman Primary Unavailable UNLISTED PROVIDER - REQUESTED Xhandoff Un available Social History Type Status Start Date End Date Code Code Syst em Smoking History Never smoker (Never Smoked) 808671895 SNOMED CT Sex Female Vital Signs Vital Sign Value Unit Brooker Value Brooker Unit Date/Time Recent/Initial? Code Code System Body Mass Index 25.51 kg/m2 01/02/2022 10:53 Initial 15203 -5 [facility] Systolic Blood Pressure 165 mm[Hg] 01/02/2022 10:53 Initial 8480- 6 [facility] Diastolic Blood Pressure 66 mm[Hg] 01/02/2022 10:53 Initial 8462- 4 [facility] Body Surface Area 1.62 m2 01/02/2022 10:53 Initial 3140- 1 LOINC Height 154.940 0 cm 61.00 in 01/02/2022 10:53 Initial 8302- 2 INC O2 Saturation 94 % 2021 10:53 Initial 12856 -5 [facility] Pulse 106.0 /min 01/02/2022 10:53 Initial 8867- 4 LOINC Respiration 19 /min 01/03/20 10:53 Initial 9279- 1 LOINC Temperature 35.6 Carolann 96.1 F 01/03/20 10:53 Initial 8310- 5 LOINC Weight 61.23 kg 135.00 lbs 01/02/2022 10:53 Initial 62761 -7 [facility] Medications Medication Start Date End Date Route Frequency Dose Code Code System Medication Instructions Home Meds Amitriptyline 50MG Oral Tablet 08/20/2019 01/02/2022 ORAL BEDTIME 50 MILLIGRAMS 057711 RxNorm TAKE 50 MILLIGRAMS ORAL BEDTIME Atorvastatin Calcium 20MG Oral Tablet 08/20/2019 Unknown ORAL BEDTIME 20 MILLIGRAMS 178321 RxNorm TAKE 20 MILLIGRAMS ORAL BEDTIME Fish Oil 1000MG Oral Capsule, Liquid Filled 08/20/2019 Unknown ORAL DAILY 3 CAPSULE 612199 RxNorm TAKE 3 CAPSULE ORAL DAILY Gabapentin 800MG Oral Tablet 08/20/2019 Unknown ORAL TWICE A DAY 1 TABLET 226781 RxNorm TAKE 1 TABLET ORAL TWICE A DAY Lisinopril 20MG Oral Tablet 08/20/2019 Unknown ORAL DAILY 20 MILLIGRAMS 166820 RxNorm TAKE 20 MILLIGRAMS ORAL DAILY Loratadine 10MG Oral Tablet 08/20/2019 01/02/2022 ORAL DAILY 10 MILLIGRAMS 206068 RxNorm TAKE 10 MILLIGRAMS ORAL DAILY Multiple Vitamin Formula Oral Tablet 08/20/2019 Unknown ORAL DAILY 1 unit(s) 9955180 RxNorm TAKE 1 EACH ORAL DAILY Pramipexole Dihydrochlorid e 0.125MG Oral Tablet 08/20/2019 09/30/2023 ORAL BEDTIME 2 TABLET 491901 RxNorm TAKE 2 TABLET ORAL BEDTIME Probiotic 250MG Oral Capsule 08/20/2019 01/02/2022 ORAL DAILY 3 TABLET 592985 RxNorm TAKE 3 TABLET ORAL DAILY glipiZIDE 10MG Oral Tablet, Extended Release 08/20/2019 Unknown ORAL DAILY 10 MILLIGRAMS 394920 RxNorm TAKE 10 MILLIGRAMS ORAL DAILY metFORMIN HCl 1000MG Oral Tablet 08/20/2019 Unknown ORAL TWICE A DAY WITH FOOD 1000 MILLIGRAMS 502878 RxNorm TAKE 1000 MILLIGRAMS ORAL TWICE A DAY WITH FOOD Cephalexin 500MG Oral Tablet 08/20/2019 01/02/2022 ORAL THREE TIMES A DAY 1 TABLET 464886 RxNorm TAKE 1 TABLET ORAL THREE TIMES A DAY Keflex 500MG Oral Capsule 01/02/2022 09/30/2023 ORAL THREE TIMES A DAY 1 CAPSULE 483766 RxNorm TAKE 1 CAPSULE ORAL THREE TIMES A DAY Nystatin 313889L/1ML Oral Suspension 01/02/2022 09/30/2023 ORAL FOUR TIMES A DAY 5 mL 165726 RxNorm TAKE 5 mL ORAL FOUR TIMES A DAY Hospital Discharge Instructions Should you have any questions prior to discharge, please contact a member of your healthcare team. If you have left the hospital and have any questions, please contact your primary care physician. Reason For Referral No Data Found Problems Problem Start Date Resolved Date Status Code Code System HTN 08/20/2019 resolved 79976031 SNOMED-CT PERSONAL HISTORY OF BLADDER CA 08/20/2019 resolved 702551907 SNOMED-CT NON-INSULIN DEPENDENT DIABETES MELLITUS 08/20/2019 resolved 63507451 SNOMED-CT 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 400076285 SNOMED-CT CIRRHOSIS - NON-ALCOHOLIC 01/02/2022 resolved 266 802985 SNOMED-CT HIGH CHOLESTEROL 10/01/2023 resolved 70831152 SN OMED-CT Allergies and Adverse Reactions Allergy Substance Reaction Severity Start Date Concern Status Co de Code System CODEINE Active 2613 RxNorm Plan of Treatment NM MPI STR/RST 05/15/2023 CT CHEST W/O CONTRAST 05/18/2022 CT CHEST W/O CONTRAST 03/26/2022 MRI BRAIN W/O CONTRAST 01/25/2021 Encounters Encounter Diagnosis Start Date Code Code Sys tem Disorder of the skin and subcutaneous tissue, unspecif ied 01/02/2022 SNOMED-CT Personal Care Team Section Performer Name Performer Role Active Date Inactive Da te
--- OUTSIDE RECORDS SUMMARY | 2023-12-02 18:28 | XMS_ITS ---
Author Organization Unknown Address [address] [place] [address] [phone] Phone Care Team Providers Care Sales Agent Protective Service Name Role Phone LYUBOV MCNEILLIE Attending Unavailable JOHN Guaman Primary Unavailable Social History Type Status Start Date End Date Code Code Syst em Smoking History Never smoker (Never Smoked) 443745181 SNOMED CT Sex Female Medications Medication Start Date End Date Route Frequency Dose Code Code System Medication Instructions Home Meds Amitriptyline 50MG Oral Tablet 08/20/2019 01/02/2022 ORAL BEDTIME 50 MILLIGRAMS 330684 RxNorm TAKE 50 MILLIGRAMS ORAL BEDTIME Atorvastatin Calcium 20MG Oral Tablet 08/20/2019 Unknown ORAL BEDTIME 20 MILLIGRAMS 496507 RxNorm TAKE 20 MILLIGRAMS ORAL BEDTIME Fish Oil 1000MG Oral Capsule, Liquid Filled 08/20/2019 Unknown ORAL DAILY 3 CAPSULE 242568 RxNorm TAKE 3 CAPSULE ORAL DAILY Gabapentin 800MG Oral Tablet 08/20/2019 Unknown ORAL TWICE A DAY 1 TABLET 308182 RxNorm TAKE 1 TABLET ORAL TWICE A DAY Lisinopril 20MG Oral Tablet 08/20/2019 Unknown ORAL DAILY 20 MILLIGRAMS 722740 RxNorm TAKE 20 MILLIGRAMS ORAL DAILY Loratadine 10MG Oral Tablet 08/20/2019 01/02/2022 ORAL DAILY 10 MILLIGRAMS 162221 RxNorm TAKE 10 MILLIGRAMS ORAL DAILY Multiple Vitamin Formula Oral Tablet 08/20/2019 Unknown ORAL DAILY 1 unit(s) 4002702 RxNorm TAKE 1 EACH ORAL DAILY Pramipexole Dihydrochlorid e 0.125MG Oral Tablet 08/20/2019 09/30/2023 ORAL BEDTIME 2 TABLET 868229 RxNorm TAKE 2 TABLET ORAL BEDTIME Probiotic 250MG Oral Capsule 08/20/2019 01/02/2022 ORAL DAILY 3 TABLET 137582 RxNorm TAKE 3 TABLET ORAL DAILY glipiZIDE 10MG Oral Tablet, Extended Release 08/20/2019 Unknown ORAL DAILY 10 MILLIGRAMS 289365 RxNorm TAKE 10 MILLIGRAMS ORAL DAILY metFORMIN HCl 1000MG Oral Tablet 08/20/2019 Unknown ORAL TWICE A DAY WITH FOOD 1000 MILLIGRAMS 176320 RxNorm TAKE 1000 MILLIGRAMS ORAL TWICE A DAY WITH FOOD Cephalexin 500MG Oral Tablet 08/20/2019 01/02/2022 ORAL THREE TIMES A DAY 1 TABLET 109260 RxNorm TAKE 1 TABLET ORAL THREE TIMES A DAY Keflex 500MG Oral Capsule 01/02/2022 09/30/2023 ORAL THREE TIMES A DAY 1 CAPSULE 067068 RxNorm TAKE 1 CAPSULE ORAL THREE TIMES A DAY Nystatin 778621Z/1ML Oral Suspension 01/02/2022 09/30/2023 ORAL FOUR TIMES A DAY 5 mL 978545 RxNorm TAKE 5 mL ORAL FOUR TIMES A DAY Hospital Discharge Instructions Should you have any questions prior to discharge, please contact a member of your healthcare team. If you have left the hospital and have any questions, please contact your primary care physician. Reason For Referral No Data Found Problems Problem Start Date Resolved Date Status Code Code System HTN 08/20/2019 resolved 46748763 SNOMED-CT PERSONAL HISTORY OF BLADDER CA 08/20/2019 resolved 301723164 SNOMED-CT NON-INSULIN DEPENDENT DIABETES MELLITUS 08/20/2019 resolved 36972277 SNOMED-CT 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 950751838 SNOMED-CT CIRRHOSIS - NON-ALCOHOLIC 01/02/2022 resolved 266 413811 SNOMED-CT HIGH CHOLESTEROL 10/01/2023 resolved 87700418 SN OMED-CT Allergies and Adverse Reactions Allergy Substance Reaction Severity Start Date Concern Status Co de Code System CODEINE Active 2670 RxNorm Plan of Treatment NM MPI STR/RST 05/15/2023 CT CHEST W/O CONTRAST 05/18/2022 CT CHEST W/O CONTRAST 03/26/2022 MRI BRAIN W/O CONTRAST 01/25/2021 Encounters Encounter Diagnosis Start Date Code Code Sys tem Refusal of treatment by patient 08/24/2021 533757757 SNOMED-CT Personal Care Team Section Performer Name Performer Role Active Date Inactive Robbin gama
--- OUTSIDE RECORDS SUMMARY | 2023-12-02 18:29 | XMS_ITS ---
Author Organization Unknown Address [address] [place] [address] [phone] Phone Care Team Providers Care Human Resource Advisor Name Role Phone KSENIA Gallo Attending Unavailable ERAN Viera Primary Unavailable Results BNP (PRO-B NATRIURETIC PEPTI [facility]) - Collect Date/Time: 05/06/2023 11:05 [facility] ID: [id number] [address] [place] [address], [address] LOINC: 20109-2 Test Value Unit Reference Range Code Code System Flag NT-proBNP 63.0 pg/mL L=0.0 H=450 36604-4 LOINC TROPONIN HIGH SENSITIVITY* - Collect Date/Time: 05/06/2023 11:05 [facility] ID: [id number] [address] [place] [address], [address] LOINC: 15675-5 Test Value Unit Reference Range Code Code System Flag TROPONIN HS 4.8 pg/mL L=0.0 H=60.4 Specimen seq. RANDOM TSH THYROID STIMULATING HORM ONE* - Collect Date/Time: 05/06/2023 11:05 [facility] ID: [id number] [address] [place] [address], [address] LOINC: 3014-8 Test Value Unit Reference Range Code Code System Flag TSH 1.873 uIU/mL L=0.360 H=3.740 3014-8 LOINC HEPATIC FUNCTION PANEL - Col lect Date/Time: 05/06/2023 11:05 [facility] ID: [id number] [address] [place] [address], [id number] LOINC: 57238-6 Test Value Unit Reference Range Code Code System Flag ALBUMIN 3.3 gm/dL L=3.4 H=5.0 1751-7 LOINC L TOTAL PROTEIN 7.1 gm/dL L=6.0 H=8.0 2885-2 LOINC BILIRUBIN TOTAL 0.5 mg/dL L=0.0 H=1.3 1974-2 LOINC BILIRUBIN DIRECT 0.10 mg/dL L=0.00 H=0.50 1971-1 LOINC SGOT (AST) 42 U/L L=15 H=37 1920-8 LOINC H SGPT (ALT) 46 U/L L=12 H=78 1742-6 LOINC ALK. PHOS. 155 U/L L=46 H=116 6768-6 LOINC H LIPID PANEL* - Collect Date/ Time: 05/06/2023 11:05 [facility] ID: [id number] [address] [place], [place], [id number] LOINC: Test Value Unit Reference Range Code Code System Flag FASTING STATUS: NOT KNOWN CHOLESTEROL 102 mg/dL L=0 H=200 2093-3 LOINC TRIGLYCERIDES 134 mg/dL L=57 H=256 2571-8 LOINC HDL 42 mg/dL L=38 H=92 2085-9 LOINC non-HDL-C 60 mg/dL L=0 H=160 23908-3 LOINC LDL (CALC) 33 mg/dL L=0 H=130 16080-0 LOINC % HDL 41.2 % Chol/HDL Ratio 2.4 L=0.0 H=4.4 9830-1 LOINC CHD Relative Risk 0.5 x Avg L=0.0 H=1.0 LDL/HDL Ratio 0.8 L=0.0 H=3.2 91104-8 LOINC CHD Relative Risk. 0.2 x Avg L=0.0 H=1.0 CBC W/ DIFFERENTIAL* - Colle ct Date/Time: 05/06/2023 11:05 [facility] ID: [id number] [address] [place] [address], [place], [address] LOINC: 93355-0 Test Value Unit Reference Range Code Code System Flag WBC 4.65 th/cmm L=5.00 H=10.00 6690-2 LOINC L NEUT % 64.5 % L=40.0 H=80.0 LYMPH % 20.0 % L=10.0 H=50.0 MONO % 12.3 % L=2.0 H=12.0 68308-3 LOINC H EOS % 2.6 % L=0.0 H=8.0 BASO % 0.4 % L=0.0 H=3.0 IG % 0.2 % L=0.0 H=1.1 2514-8 LOINC NRBC % 0.0 % L=0.0 H=0.0 87378-4 LOINC NEUT abs count 3.0 th/cmm L=1.6 H=8.4 751-8 LOINC LYMPH abs count 0.9 th/cmm L=1.5 H=4.0 731-0 LOINC L MONO abs count 0.6 th/cmm L=0.2 H=1.0 742-7 LOINC EOS abs count 0.1 th/cmm L=0.0 H=0.5 711-2 LOINC BASO abs count 0.0 th/cmm L=0.0 H=0.2 704-7 LOINC IG abs count 0.0 th/cmm L=0.0 H=0.1 79166-2 LOINC NRBC abs count 0.0 mil/cmm L=0.0 H=0.0 59934-0 LOINC RBC 4.22 mil/cmm L=3.90 H=5.40 789-8 LOINC HEMOGLOBIN 12.7 gm/dL L=12.0 H=16.0 718-7 LOINC HEMATOCRIT 39 % L=37 H=47 4544-3 LOINC MCV 93 fL L=82 H=92 787-2 LOINC H MCH 30.1 pg L=27.0 H=31.0 785-6 LOINC MCHC 32.5 % L=32.0 H=36.0 786-4 LOINC RDW-SD 46.3 fL L=39.0 H=49.0 788-0 LOINC PLATELET COUNT 79 th/cmm L=150 H=450 777-3 LOINC L BASIC METABOLIC PANEL (BMP) - Collect Date/Time: 05/06/2023 11:05 [facility] ID: [id number] [address] [place] [address], [address] LOINC: 62349-3 Test Value Unit Reference Range Code Code System Flag GLUCOSE 228 mg/dL L=70 H=116 2345-7 LOINC H BUN 21 mg/dL L=6 H=25 3094-0 LOINC CREATININE 0.91 mg/dL L=0.51 H=0.95 2160-0 LOINC SODIUM SERUM 141 mmol/L L=136 H=145 2951-2 LOINC POTASSIUM SERUM 4.2 mmol/L L=3.4 H=5.2 2823-3 LOINC CHLORIDE SERUM 102 mmol/L L=96 H=110 2075-0 LOINC CARBON DIOXIDE (CO2) 29 mmol/L L=22 H=34 2028-9 LOINC ANION GAP 9.8 mmol/L 12721-7 LOINC CALCIUM SERUM 9.4 mg/dL L=8.2 H=10.2 59995-9 LOINC AGE 82 years eGFR (non-Afr.Amer.) 59 mL/min 54557-1 LOINC eGFR (Afr-Uzbek) 72 mL/min 53947-0 LOINC Social History Type Status Start Date End Date Code Code Syst em Smoking History Never smoker (Never Smoked) 854506164 SNOMED CT Sex Female Medications Medication Start Date End Date Route Frequency Dose Code Code System Medication Instructions Home Meds Atorvastatin Calcium 20MG Oral Tablet 08/20/2019 Unknown ORAL BEDTIME 20 MILLIGRAMS 704838 RxNorm TAKE 20 MILLIGRAMS ORAL BEDTIME Fish Oil 1000MG Oral Capsule, Liquid Filled 08/20/2019 Unknown ORAL DAILY 3 CAPSULE 140845 RxNorm TAKE 3 CAPSULE ORAL DAILY Gabapentin 800MG Oral Tablet 08/20/2019 Unknown ORAL TWICE A DAY 1 TABLET 040173 RxNorm TAKE 1 TABLET ORAL TWICE A DAY Lisinopril 20MG Oral Tablet 08/20/2019 Unknown ORAL DAILY 20 MILLIGRAMS 343060 RxNorm TAKE 20 MILLIGRAMS ORAL DAILY Multiple Vitamin Formula Oral Tablet 08/20/2019 Unknown ORAL DAILY 1 unit(s) 0882064 RxNorm TAKE 1 EACH ORAL DAILY Pramipexole Dihydrochloride 0.125MG Oral Tablet 08/20/2019 09/30/19 24 ORAL BEDTIME 2 TABLET 289603 RxNorm TAKE 2 TABLET ORAL BEDTIME glipiZIDE 10MG Oral Tablet, Extended Release 08/20/2019 Unknown ORAL DAILY 10 MILLIGRAMS 691119 RxNorm TAKE 10 MILLIGRAMS ORAL DAILY metFORMIN HCl 1000MG Oral Tablet 08/20/2019 Unknown ORAL TWICE A DAY WITH FOOD 1000 MILLIGRAMS 495354 RxNorm TAKE 1000 MILLIGRAMS ORAL TWICE A DAY WITH FOOD Keflex 500MG Oral Capsule 01/02/2022 09/30/19 24 ORAL THREE TIMES A DAY 1 CAPSULE 146728 RxNorm TAKE 1 CAPSULE ORAL THREE TIMES A DAY Nystatin 041208K/1ML Oral Suspension 01/02/2022 09/30/19 24 ORAL FOUR TIMES A DAY 5 mL 463588 RxNorm TAKE 5 mL ORAL FOUR TIMES A DAY Hospital Discharge Instructions Should you have any questions prior to discharge, please contact a member of your healthcare team. If you have left the hospital and have any questions, please contact your primary care physician. Reason For Referral No Data Found Problems Problem Start Date Resolved Date Status Code Code System HTN 08/20/2019 resolved 65784606 SNOMED-CT PERSONAL HISTORY OF BLADDER CA 08/20/2019 resolved 411137207 SNOMED-CT NON-INSULIN DEPENDENT DIABETES MELLITUS 08/20/2019 resolved 38650892 SNOMED-CT 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 895273220 SNOMED-CT CIRRHOSIS - NON-ALCOHOLIC 01/02/2022 resolved 266 972534 SNOMED-CT HIGH CHOLESTEROL 10/01/2023 resolved 23862911 SN OMED-CT Allergies and Adverse Reactions Allergy Substance Reaction Severity Start Date Concern Status Co de Code System CODEINE Active 2670 RxNorm Plan of Treatment NM MPI STR/RST 05/15/2023 CT CHEST W/O CONTRAST 05/18/2022 CT CHEST W/O CONTRAST 03/26/2022 MRI BRAIN W/O CONTRAST 01/25/2021 Encounters Encounter Diagnosis Start Date Code Code Sys tem Chest pain 05/06/2023 85037171 SNOMED-CT Personal Care Team Section Performer Name Performer Role Active Date Inactive Da te
--- OUTSIDE RECORDS SUMMARY | 2023-12-02 18:29 | XMS_ITS ---
Author Organization Unknown Address [address] [place] [address] [phone] Phone Care Team Providers Care Educational Program Assistant Name Role Phone TYSON Waller Attending Unavailable ERAN Viera Primary Unavailable Social History Type Status Start Date End Date Code Code Syst em Smoking History Never smoker (Never Smoked) 897555206 SNOMED CT Sex Female Medications Medication Start Date End Date Route Frequency Dose Code Code System Medication Instructions Home Meds Atorvastatin Calcium 20MG Oral Tablet 08/20/2019 Unknown ORAL BEDTIME 20 MILLIGRAMS 730529 RxNorm TAKE 20 MILLIGRAMS ORAL BEDTIME Fish Oil 1000MG Oral Capsule, Liquid Filled 08/20/2019 Unknown ORAL DAILY 3 CAPSULE 747545 RxNorm TAKE 3 CAPSULE ORAL DAILY Gabapentin 800MG Oral Tablet 08/20/2019 Unknown ORAL TWICE A DAY 1 TABLET 154236 RxNorm TAKE 1 TABLET ORAL TWICE A DAY Lisinopril 20MG Oral Tablet 08/20/2019 Unknown ORAL DAILY 20 MILLIGRAMS 368494 RxNorm TAKE 20 MILLIGRAMS ORAL DAILY Multiple Vitamin Formula Oral Tablet 08/20/2019 Unknown ORAL DAILY 1 unit(s) 9591384 RxNorm TAKE 1 EACH ORAL DAILY Pramipexole Dihydrochloride 0.125MG Oral Tablet 08/20/2019 09/30/19 24 ORAL BEDTIME 2 TABLET 687406 RxNorm TAKE 2 TABLET ORAL BEDTIME glipiZIDE 10MG Oral Tablet, Extended Release 08/20/2019 Unknown ORAL DAILY 10 MILLIGRAMS 476631 RxNorm TAKE 10 MILLIGRAMS ORAL DAILY metFORMIN HCl 1000MG Oral Tablet 08/20/2019 Unknown ORAL TWICE A DAY WITH FOOD 1000 MILLIGRAMS 938143 RxNorm TAKE 1000 MILLIGRAMS ORAL TWICE A DAY WITH FOOD Keflex 500MG Oral Capsule 01/02/2022 09/30/19 24 ORAL THREE TIMES A DAY 1 CAPSULE 948354 RxNorm TAKE 1 CAPSULE ORAL THREE TIMES A DAY Nystatin 410725E/1ML Oral Suspension 01/02/2022 09/30/19 24 ORAL FOUR TIMES A DAY 5 mL 856350 RxNorm TAKE 5 mL ORAL FOUR TIMES A DAY Hospital Discharge Instructions Should you have any questions prior to discharge, please contact a member of your healthcare team. If you have left the hospital and have any questions, please contact your primary care physician. Reason For Referral No Data Found Problems Problem Start Date Resolved Date Status Code Code System HTN 08/20/2019 resolved 89332788 SNOMED-CT PERSONAL HISTORY OF BLADDER CA 08/20/2019 resolved 948543454 SNOMED-CT NON-INSULIN DEPENDENT DIABETES MELLITUS 08/20/2019 resolved 27625990 SNOMED-CT 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 913421183 SNOMED-CT CIRRHOSIS - NON-ALCOHOLIC 01/02/2022 resolved 266 046983 SNOMED-CT HIGH CHOLESTEROL 10/01/2023 resolved 73080886 SN OMED-CT Allergies and Adverse Reactions Allergy Substance Reaction Severity Start Date Concern Status Co de Code System CODEINE Active 2670 RxNorm Plan of Treatment NM MPI STR/RST 05/15/2023 CT CHEST W/O CONTRAST 05/18/2022 CT CHEST W/O CONTRAST 03/26/2022 MRI BRAIN W/O CONTRAST 01/25/2021 Encounters Encounter Diagnosis Start Date Code Code Sys tem Tachycardia, unspecified 03/28/2023 SNO MED-CT Personal Care Team Section Performer Name Performer Role Active Date Inactive Da lanette
--- OUTSIDE RECORDS SUMMARY | 2023-12-02 18:29 | XMS_ITS ---
Author Organization Unknown Address [address] [place] [address] [phone] Phone Care Team Providers Care Shipping And Receiving Specialist Name Role Phone ERAN Viera Attending Unavailable Results XR CHEST 2V PA AND LATERAL - Completed: 03/19/2023 20:46 LOINC: [facility] [place], [place] [address] PACS SENIOR ASIC ENGINEER REPORT Patient Name: NICK MENDIETA MRN: Sex: : Age: [id number] F [id number] Account: Accession: Admit: StayType: [id number] 03/19/2023 O/P Ordered: Order ID: Submitted: Ordering Provider: 03/19/2023 09:53 [id number] RUPAL FREY Completed: Technologist: Resulted: 03/19/2023 09:53 03/19/2023 10:10 Study Description: XR CHEST 2V PA AND LATERAL Study Reason: ACUTE RESPIRATORY TECHNIQUE: 2D Digital imaging Number of views: 2 Views COMPARISON: 27 November 2022 FINDINGS: LUNGS: Clear. PLEURA: No pleural abnormality seen. HEART: Normal size. Mitral valve again noted to be heavily calcified. AORTA: Normal diameter. BONES: Unremarkable for age. SOFT TISSUES: Unremarkable. IMPRESSION: No acute findings. Report Digitally Signed by Yola Hampton on 03/19/2023 10:10 AM EST Social History Type Status Start Date End Date Code Code Syst em Smoking History Never smoker (Never Smoked) 947621429 SNOMED CT Sex Female Medications Medication Start Date End Date Route Frequency Dose Code Code System Medication Instructions Home Meds Atorvastatin Calcium 20MG Oral Tablet 08/20/2019 Unknown ORAL BEDTIME 20 MILLIGRAMS 905441 RxNorm TAKE 20 MILLIGRAMS ORAL BEDTIME Fish Oil 1000MG Oral Capsule, Liquid Filled 08/20/2019 Unknown ORAL DAILY 3 CAPSULE 528065 RxNorm TAKE 3 CAPSULE ORAL DAILY Gabapentin 800MG Oral Tablet 08/20/2019 Unknown ORAL TWICE A DAY 1 TABLET 255010 RxNorm TAKE 1 TABLET ORAL TWICE A DAY Lisinopril 20MG Oral Tablet 08/20/2019 Unknown ORAL DAILY 20 MILLIGRAMS 916453 RxNorm TAKE 20 MILLIGRAMS ORAL DAILY Multiple Vitamin Formula Oral Tablet 08/20/2019 Unknown ORAL DAILY 1 unit(s) 0053363 RxNorm TAKE 1 EACH ORAL DAILY Pramipexole Dihydrochloride 0.125MG Oral Tablet 08/20/2019 09/30/19 24 ORAL BEDTIME 2 TABLET 429527 RxNorm TAKE 2 TABLET ORAL BEDTIME glipiZIDE 10MG Oral Tablet, Extended Release 08/20/2019 Unknown ORAL DAILY 10 MILLIGRAMS 564511 RxNorm TAKE 10 MILLIGRAMS ORAL DAILY metFORMIN HCl 1000MG Oral Tablet 08/20/2019 Unknown ORAL TWICE A DAY WITH FOOD 1000 MILLIGRAMS 776856 RxNorm TAKE 1000 MILLIGRAMS ORAL TWICE A DAY WITH FOOD Keflex 500MG Oral Capsule 01/02/2022 09/30/19 24 ORAL THREE TIMES A DAY 1 CAPSULE 403133 RxNorm TAKE 1 CAPSULE ORAL THREE TIMES A DAY Nystatin 802596Y/1ML Oral Suspension 01/02/2022 09/30/19 24 ORAL FOUR TIMES A DAY 5 mL 304464 RxNorm TAKE 5 mL ORAL FOUR TIMES A DAY Hospital Discharge Instructions Should you have any questions prior to discharge, please contact a member of your healthcare team. If you have left the hospital and have any questions, please contact your primary care physician. Reason For Referral No Data Found Problems Problem Start Date Resolved Date Status Code Code System HTN 08/20/2019 resolved 15333504 SNOMED-CT PERSONAL HISTORY OF BLADDER CA 08/20/2019 resolved 812177091 SNOMED-CT NON-INSULIN DEPENDENT DIABETES MELLITUS 08/20/2019 resolved 86230914 SNOMED-CT 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 045863905 SNOMED-CT CIRRHOSIS - NON-ALCOHOLIC 01/02/2022 resolved 266 694799 SNOMED-CT HIGH CHOLESTEROL 10/01/2023 resolved 05382471 SN OMED-CT Allergies and Adverse Reactions Allergy Substance Reaction Severity Start Date Concern Status Co de Code System CODEINE Active 7600 RxNorm Plan of Treatment NM MPI STR/RST 05/15/2023 CT CHEST W/O CONTRAST 05/18/2022 CT CHEST W/O CONTRAST 03/26/2022 MRI BRAIN W/O CONTRAST 01/25/2021 Encounters Encounter Diagnosis Start Date Code Code Sys tem Acute upper respiratory infection 03/19/2023 5047601 5 SNOMED-CT Personal Care Team Section Performer Name Performer Role Active Date Inactive Da te
--- OUTSIDE RECORDS SUMMARY | 2023-12-02 18:29 | XMS_ITS ---
Author Organization Unknown Address [address] [place] [address] [phone] Phone Care Team Providers Care Clothing Room Supervisor Name Role Phone ERAN Viera Attending Unavailable Results XR CHEST 2V PA AND LATERAL - Completed: 11/27/2022 14:20 LOINC: [facility] [place], [place] [address] PACS CLINICAL REVIEW NURSE REPORT Patient Name: NICK MENDIETA MRN: Sex: : Age: [id number] F 1940 82 Account: Accession: Admit: StayType: [id number] 11/27/2022 O/P Ordered: Order ID: Submitted: Ordering Provider: 11/27/2022 14:03 [id number] KT RUPAL BARILLAS Completed: Technologist: Resulted: 11/27/2022 14:20 [facility] 11/27/2022 14:47 Study Description: XR CHEST 2V PA AND LATERAL Study Reason: Pneumonia Technique: 2D digital imaging was performed of the chest. 2 images were obtained. Comparison: Comparison is made with prior examinations. FINDINGS: MEDIASTINUM: Normal. HEART: There is again seen dense calcification of the mitral valve. PULMONARY VASCULATURE: Normal. LUNGS: Clear. PLEURAL SPACE: No pleural effusion or pneumothorax. BONE:Within normal limits for the patient's age. OTHER FINDINGS:Normal. IMPRESSION: No focal consolidations. Report Digitally Signed by Kris Ferguson on 11/27/2022 02:47 PM EDT Social History Type Status Start Date End Date Code Code Syst em Smoking History Never smoker (Never Smoked) 928885850 SNOMED CT Sex Female Medications Medication Start Date End Date Route Frequency Dose Code Code System Medication Instructions Home Meds Atorvastatin Calcium 20MG Oral Tablet 08/20/2019 Unknown ORAL BEDTIME 20 MILLIGRAMS 374281 RxNorm TAKE 20 MILLIGRAMS ORAL BEDTIME Fish Oil 1000MG Oral Capsule, Liquid Filled 08/20/2019 Unknown ORAL DAILY 3 CAPSULE 584351 RxNorm TAKE 3 CAPSULE ORAL DAILY Gabapentin 800MG Oral Tablet 08/20/2019 Unknown ORAL TWICE A DAY 1 TABLET 440199 RxNorm TAKE 1 TABLET ORAL TWICE A DAY Lisinopril 20MG Oral Tablet 08/20/2019 Unknown ORAL DAILY 20 MILLIGRAMS 595641 RxNorm TAKE 20 MILLIGRAMS ORAL DAILY Multiple Vitamin Formula Oral Tablet 08/20/2019 Unknown ORAL DAILY 1 unit(s) 7257036 RxNorm TAKE 1 EACH ORAL DAILY Pramipexole Dihydrochloride 0.125MG Oral Tablet 08/20/2019 09/30/19 24 ORAL BEDTIME 2 TABLET 032629 RxNorm TAKE 2 TABLET ORAL BEDTIME glipiZIDE 10MG Oral Tablet, Extended Release 08/20/2019 Unknown ORAL DAILY 10 MILLIGRAMS 335991 RxNorm TAKE 10 MILLIGRAMS ORAL DAILY metFORMIN HCl 1000MG Oral Tablet 08/20/2019 Unknown ORAL TWICE A DAY WITH FOOD 1000 MILLIGRAMS 004066 RxNorm TAKE 1000 MILLIGRAMS ORAL TWICE A DAY WITH FOOD Keflex 500MG Oral Capsule 01/02/2022 09/30/19 24 ORAL THREE TIMES A DAY 1 CAPSULE 886140 RxNorm TAKE 1 CAPSULE ORAL THREE TIMES A DAY Nystatin 444598N/1ML Oral Suspension 01/02/2022 09/30/19 24 ORAL FOUR TIMES A DAY 5 mL 273819 RxNorm TAKE 5 mL ORAL FOUR TIMES A DAY Hospital Discharge Instructions Should you have any questions prior to discharge, please contact a member of your healthcare team. If you have left the hospital and have any questions, please contact your primary care physician. Reason For Referral No Data Found Problems Problem Start Date Resolved Date Status Code Code System HTN 08/20/2019 resolved 69613748 SNOMED-CT PERSONAL HISTORY OF BLADDER CA 08/20/2019 resolved 124190535 SNOMED-CT NON-INSULIN DEPENDENT DIABETES MELLITUS 08/20/2019 resolved 48064415 SNOMED-CT 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 702979154 SNOMED-CT CIRRHOSIS - NON-ALCOHOLIC 01/02/2022 resolved 266 251710 SNOMED-CT HIGH CHOLESTEROL 10/01/2023 resolved 09179410 SN OMED-CT Allergies and Adverse Reactions Allergy Substance Reaction Severity Start Date Concern Status Co de Code System CODEINE Active 4088 RxNorm Plan of Treatment NM MPI STR/RST 05/15/2023 CT CHEST W/O CONTRAST 05/18/2022 CT CHEST W/O CONTRAST 03/26/2022 MRI BRAIN W/O CONTRAST 01/25/2021 Encounters Encounter Diagnosis Start Date Code Code Sys tem Pneumonia 11/27/2022 [id number] SNOMED-CT Personal Care Team Section Performer Name Performer Role Active Date Inactive Da te
--- OUTSIDE RECORDS SUMMARY | 2023-12-02 18:30 | XMS_ITS ---
Author Organization Unknown Address [address] [place] [address] [phone] Phone Care Team Providers Care Sales Solutions Representative Name Role Phone DORENE WATTS Registered Nurse Unavailable FRIDA GUNN Attending Unavailable ERAN Viera Primary Unavailable UNLISTED PROVIDER - REQUESTED Xhandoff Un available Results TROPONIN HIGH SENSITIVITY* - Collect Date/Time: 09/30/2023 23:44 [facility] ID: [id number] [address] [place] [address], [address] LOINC: 06844-0 Test Value Unit Reference Range Code Code System Flag TROPONIN HS 7.2 pg/mL L=0.0 H=60.4 Specimen seq. 1 HOUR D-DIMER - Collect Date/Time: 09/30/2023 22:51 [facility] ID: [id number] [address] [place] [address], [address] LOINC: 77977-7 Test Value Unit Reference Range Code Code System Flag D-DIMER 0.57 mg/L L=0.19 H=0.50 42702-1 LOINC H TROPONIN HIGH SENSITIVITY* - Collect Date/Time: 09/30/2023 22:40 [facility] ID: [id number] [address] [place] [address], [address] LOINC: 13999-5 Test Value Unit Reference Range Code Code System Flag TROPONIN HS 7.9 pg/mL L=0.0 H=60.4 Specimen seq. RANDOM COMPREHENSIVE METABOLIC PANE L (CMP) - Collect Date/Time: 09/30/2023 22:40 [facility] ID: [id number] [address] [place], [place], [address] LOINC: 77732-7 Test Value Unit Reference Range Code Code System Flag GLUCOSE 118 mg/dL L=70 H=116 2345-7 LOINC H BUN 18 mg/dL L=6 H=25 3094-0 LOINC CREATININE 0.80 mg/dL L=0.51 H=0.95 2160-0 LOINC SODIUM SERUM 140 mmol/L L=136 H=145 2951-2 LOINC POTASSIUM SERUM 3.4 mmol/L L=3.4 H=5.2 2823-3 LOINC CHLORIDE SERUM 103 mmol/L L=96 H=110 2075-0 LOINC CARBON DIOXIDE (CO2) 30 mmol/L L=22 H=34 2028-9 LOINC ANION GAP 7.3 mmol/L 16557-4 LOINC CALCIUM SERUM 9.4 mg/dL L=8.2 H=10.2 12315-2 LOINC BILIRUBIN TOTAL 0.5 mg/dL L=0.0 H=1.3 1975-2 LOINC ALK. PHOS. 118 U/L L=46 H=116 6768-6 LOINC H SGOT (AST) 30 U/L L=15 H=37 1920-8 LOINC SGPT (ALT) 39 U/L L=12 H=78 1742-6 LOINC TOTAL PROTEIN 6.9 gm/dL L=6.0 H=8.0 2885-2 LOINC ALBUMIN 3.6 gm/dL L=3.4 H=5.0 1751-7 LOINC AGE 83 years eGFR (non-Afr.Amer.) 69 mL/min 22670-6 LOINC eGFR (Afr-Stateless) 83 mL/min 03188-5 LOINC CBC W/ DIFFERENTIAL* - Colle ct Date/Time: 09/30/2023 22:40 [facility] ID: [id number] [address] [place], [place], [address] LOINC: 32626-2 Test Value Unit Reference Range Code Code System Flag WBC 4.90 th/cmm L=5.00 H=10.00 6690-2 LOINC L NEUT % 52.1 % L=40.0 H=80.0 LYMPH % 34.5 % L=10.0 H=50.0 MONO % 11.2 % L=2.0 H=12.0 61974-7 LOINC EOS % 1.6 % L=0.0 H=8.0 BASO % 0.4 % L=0.0 H=3.0 IG % 0.2 % L=0.0 H=1.1 2514-8 LOINC NRBC % 0.0 % L=0.0 H=0.0 44941-2 LOINC NEUT abs count 2.6 th/cmm L=1.6 H=8.4 751-8 LOINC LYMPH abs count 1.7 th/cmm L=1.5 H=4.0 731-0 LOINC MONO abs count 0.6 th/cmm L=0.2 H=1.0 742-7 LOINC EOS abs count 0.1 th/cmm L=0.0 H=0.5 711-2 LOINC BASO abs count 0.0 th/cmm L=0.0 H=0.2 704-7 LOINC IG abs count 0.0 th/cmm L=0.0 H=0.1 02804-7 LOINC NRBC abs count 0.0 mil/cmm L=0.0 H=0.0 30044-6 LOINC RBC 3.98 mil/cmm L=3.90 H=5.40 789-8 LOINC HEMOGLOBIN 12.0 gm/dL L=12.0 H=16.0 718-7 LOINC HEMATOCRIT 37 % L=37 H=47 4544-3 LOINC MCV 93 fL L=82 H=92 787-2 LOINC H MCH 30.2 pg L=27.0 H=31.0 785-6 LOINC MCHC 32.3 % L=32.0 H=36.0 786-4 LOINC RDW-SD 48.0 fL L=39.0 H=49.0 788-0 LOINC PLATELET COUNT 76 th/cmm L=150 H=450 777-[address] ANGIO CHEST ABD PELVIS W IV CONTRST* - Completed: 10/01/2023 00:04 LOINC: [facility] [place], [place] [address] [facility] REPORT Patient Name: NICK MENDIETA MRN: Sex: : Age: [id number] F 1940 83 Account: Accession: Admit: StayType: [id number] 10/01/2023 E Ordered: Order ID: Submitted: Ordering Provider: 09/30/2023 23:30 [id number] LUIS A CAMARGO Completed: Technologist: Resulted: 09/30/2023 23:53 MF 10/01/2023 09:22 FINAL REPORT EXAM: CT ANGIO CHEST ABD PELVIS W IV CONTRST CLINICAL HISTORY: Reason for CT: Chest Pain. TECHNIQUE: Imaging Protocol: Axial CT angiography was performed with multi-slice acquisition and multi-planar and/or 3D reconstructions. CONTRAST MATERIAL: Intravenous: Omnipaque. Contrast volume:75 mL Oral: No COMPARISON: CT ANGIOGRAPHY * PULMONARY (PE) from 08/01/2018 XR CHEST 2V PA AND LATERAL from 03/19/2023 XR CHEST PORTABLE OR 1V from 09/30/2023 FINDINGS: CHEST: Tracheobronchial tree: Patent where visualized. Pulmonary parenchyma: There has been interval increase in size of the well-circumscribed hypodense nodule in the right lower lobe. The nodule measures 1.5 x 1.4 x 2.2 centimeters. There also a cluster of small nodules in the inferior aspect of the right upper lobe. The largest measures 6 millimeters. There is a 4 millimeter perifissural nodule associated with right minor fissure. No focal consolidating infiltrates are seen. Pulmonary Arteries: No evidence of filling defect to suggest pulmonary emboli. Mediastinum and Diane: No dominant adenopathy or fluid collection. The esophagus is unremarkable. Visualized thyroid: Unremarkable. Pleura: No effusion or pneumothorax. Heart: Cardiomegaly. Coronary artery calcifications. Mitral calcification is present. No pericardial effusion. Aorta: Thoracic aorta non-dilated. No evidence of dissection. Atherosclerotic calcification is present. Soft Tissues: Unremarkable. Bones: Within normal limits for the patient's age. ABDOMEN AND PELVIS: Abdomen: Celiac axis/mesenteric arteries: No evidence of occlusion or significant stenosis. Atherosclerotic calcification of the origin of the celiac axis. Renal Arteries: No evidence of occlusion or significant stenosis. Atherosclerotic calcification at the origins of both renal arteries. Aorta: No evidence of occlusion or significant stenosis. No aneurysm or dissection. Atherosclerotic calcification is present. Pelvis: Iliac Arteries: No evidence of occlusion or significant stenosis. Sclerotic calcification is present. Common Femoral Arteries: No evidence of occlusion or significant stenosis. ABDOMEN: Liver: The lobulated appearance of the liver suggesting hepatic cirrhosis. The liver is enlarged. No measurable mass. Gallbladder and Biliary Tract: The gallbladder is absent. No significant biliary ductal dilatation is present. Pancreas: Normal density, no abnormal calcifications or inflammatory process. Spleen: Splenomegaly. Adrenals: No masses seen. Kidneys: Normal size, contour and axis. No radiodense stones or obstructive uropathy. No masses seen. Bowel: The stomach is incompletely distended limiting evaluation. There is diverticulosis of the colon without evidence of acute diverticulitis. There is no evidence of bowel wall thickening or bowel obstruction. No evidence of appendicitis. Peritoneal Cavity: No ascites, collection or mesenteric inflammatory response. No free air. Lymph Nodes: Within normal limits. Bones: Within normal limits for the patient's age. Soft Tissues: Fat containing inguinal hernias are present. PELVIS: Bladder: There is mild thickening of the wall of the urinary bladder. This may be due to underdistention. Reproductive Organs: Status post hysterectomy. Lymph Nodes: Within normal limits. Bones: Within normal limits for the patient's age. IMPRESSION: 1. No evidence of aortic dissection or aneurysm. 2. Interval increase in size of the left lower lobe pulmonary nodule. If clinically appropriate, PET scan may be obtained for further evaluation. 3. Cluster of small nodules seen in the inferior aspect of the right upper lobe. This may represent infectious/inflammatory nodules or metastatic disease. 4. Findings suggestive of hepatic cirrhosis with hepatomegaly and splenomegaly. 5. Mild thickening of the wall of the urinary bladder. This may be due to underdistention versus cystitis. RADIATION DOSE DELIVERED: mGy total DLP DATA REPOSITORY: All CT scans at this facility are submitted to the National Radiology Data Registry (NRDR) Dose Index Registry (DIR) with the [employer] (ACR). RADIATION OPTIMIZATION: All CT scans at this facility use at least one of these dose optimization techniques: automated exposure control; mA and/or kV adjustment per patient size (includes targeted exams where dose is matched to clinical indication); or iterative reconstruction. Electronically signed by: Kris Ferguson Dictated: 10/01/2023 09:22 XR CHEST PORTABLE OR 1V - Co mpleted: 09/30/2023 22:54 LOINC: [facility] [place], [place] [address] [facility] PACS HEEL VARNISHER REPORT Patient Name: NICK MENDIETA MRN: Sex: : Age: [id number] F 1940 83 Account: Accession: Admit: StayType: [id number] 10/01/2023 E Ordered: Order ID: Submitted: Ordering Provider: 09/30/2023 22:41 [id number] LUIS A SANCHEZ Completed: Technologist: Resulted: 09/30/2023 22:51 MF 10/01/2023 09:06 FINAL REPORT EXAM: XR CHEST PORTABLE OR 1V CLINICAL HISTORY: Reason for Chest: Chest Pain TECHNIQUE: 2D digital imaging was performed of the chest. One image was obtained. An AP view was obtained. COMPARISON: XR CHEST 2V PA AND LATERAL from 03/19/2023 FINDINGS: MEDIASTINUM: Normal. HEART: Normal. PULMONARY VASCULATURE: Normal. LUNGS: Clear. PLEURAL SPACE: No pleural effusion or pneumothorax. BONE:Within normal limits for the patient's age. OTHER FINDINGS:Normal. IMPRESSION: No acute pulmonary findings. DATA REPOSITORY: RADIATION DOSE DELIVERED: Electronically signed by: Kris Ferguson Dictated: 10/01/2023 09:06 Social History Type Status Start Date End Date Code Code Syst em Smoking History Never smoker (Never Smoked) 339017977 SNOMED CT Sex Female Vital Signs Vital Sign Value Unit [place] Value [place] Unit Date/Time Recent/Initial? Code Code System Body Mass Index 25.32 kg/m2 09/30/2023 22:42 Initial 75515 -5 LOINC Systolic Blood Pressure 126 mm[Hg] 10/01/2023 02:00 Most Recent 8480- 6 LOINC Diastolic Blood Pressure 57 mm[Hg] 10/01/2023 02:00 Most Recent 8462- 4 LOINC Systolic Blood Pressure 138 mm[Hg] 09/30/2023 22:40 Initial 8480- 6 LOINC Diastolic Blood Pressure 71 mm[Hg] 09/30/2023 22:40 Initial 8462- 4 LOINC Body Surface Area 1.62 m2 09/30/2023 22:42 Initial 3140- 1 LOINC Height 154.940 0 cm 61.00 in 09/30/2023 22:42 Initial 8302- 2 LOINC O2 Saturation 96 % 2023 02:00 Most Recent 91876 -5 LOINC O2 Saturation 99 % 2023 22:40 Initial 88896 -5 LOINC Inhaled Oxygen Flow Rate 2.00 L/min 10/01/2023 01:30 Most Recent 3151- 8 LOINC Inhaled Oxygen Flow Rate 2.00 L/min 10/01/2023 01:00 Initial 3151- 8 LOINC Pulse 90.0 /min 10/01/2023 02:00 Most Recent 8867- 4 LOINC Pulse 90.0 /min 09/30/2023 22:40 Initial 8867- 4 LOINC Respiration 15 /min 10/01/19 02:00 Most Recent 9279- 1 LOINC Respiration 17 /min 09/30/19 22:40 Initial 9279- 1 [facility] Temperature 36.3 Carolann 97.3 F 09/30/19 22:42 Initial 8310- 5 [facility] Weight 60.78 kg 134.00 lbs 09/30/2023 22:42 Initial 60763 -7 [facility] Medications Medication Start Date End Date Route Frequency Dose Code Code System Medication Instructions Home Meds Atorvastatin Calcium 20MG Oral Tablet 08/20/2019 Unknown ORAL BEDTIME 20 MILLIGRAMS 859599 RxNorm TAKE 20 MILLIGRAMS ORAL BEDTIME Fish Oil 1000MG Oral Capsule, Liquid Filled 08/20/2019 Unknown ORAL DAILY 3 CAPSULE 603192 RxNorm TAKE 3 CAPSULE ORAL DAILY Gabapentin 800MG Oral Tablet 08/20/2019 Unknown ORAL TWICE A DAY 1 TABLET 123785 RxNorm TAKE 1 TABLET ORAL TWICE A DAY Lisinopril 20MG Oral Tablet 08/20/2019 Unknown ORAL DAILY 20 MILLIGRAMS 395367 RxNorm TAKE 20 MILLIGRAMS ORAL DAILY Multiple Vitamin Formula Oral Tablet 08/20/2019 Unknown ORAL DAILY 1 unit(s) 7148036 RxNorm TAKE 1 EACH ORAL DAILY Pramipexole Dihydrochloride 0.125MG Oral Tablet 08/20/2019 09/30/19 24 ORAL BEDTIME 2 TABLET 284443 RxNorm TAKE 2 TABLET ORAL BEDTIME glipiZIDE 10MG Oral Tablet, Extended Release 08/20/2019 Unknown ORAL DAILY 10 MILLIGRAMS 394790 RxNorm TAKE 10 MILLIGRAMS ORAL DAILY metFORMIN HCl 1000MG Oral Tablet 08/20/2019 Unknown ORAL TWICE A DAY WITH FOOD 1000 MILLIGRAMS 301897 RxNorm TAKE 1000 MILLIGRAMS ORAL TWICE A DAY WITH FOOD Keflex 500MG Oral Capsule 01/02/2022 09/30/19 24 ORAL THREE TIMES A DAY 1 CAPSULE 926957 RxNorm TAKE 1 CAPSULE ORAL THREE TIMES A DAY Nystatin 953006T/1ML Oral Suspension 01/02/2022 09/30/19 24 ORAL FOUR TIMES A DAY 5 mL 307822 RxNorm TAKE 5 mL ORAL FOUR TIMES A DAY Hospital Discharge Instructions Should you have any questions prior to discharge, please contact a member of your healthcare team. If you have left the hospital and have any questions, please contact your primary care physician. Reason For Referral No Data Found Problems Problem Start Date Resolved Date Status Code Code System HTN 08/20/2019 resolved 99237736 SNOMED-CT PERSONAL HISTORY OF BLADDER CA 08/20/2019 resolved 336856930 SNOMED-CT NON-INSULIN DEPENDENT DIABETES MELLITUS 08/20/2019 resolved 75765779 SNOMED-CT 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 995358855 SNOMED-CT CIRRHOSIS - NON-ALCOHOLIC 01/02/2022 resolved 266 329181 SNOMED-CT HIGH CHOLESTEROL 10/01/2023 resolved 19213324 SN OMED-CT Allergies and Adverse Reactions Allergy Substance Reaction Severity Start Date Concern Status Co de Code System CODEINE Active 5240 RxNorm Plan of Treatment NM MPI STR/RST 05/15/2023 CT CHEST W/O CONTRAST 05/18/2022 CT CHEST W/O CONTRAST 03/26/2022 MRI BRAIN W/O CONTRAST 01/25/2021 Encounters Encounter Diagnosis Start Date Code Code Sys tem Other chest pain 09/30/2023 SNOMED-CT Personal Care Team Section Performer Name Performer Role Active Date Inactive Da te
--- OUTSIDE RECORDS SUMMARY | 2023-12-02 18:30 | XMS_ITS ---
Author Organization Unknown Address [address] [place] [address] [phone] Phone Care Team Providers Care Product Test Specialist Name Role Phone MCCORMACK CRYSTAL Gallo Attending Unavailable ERAN Viera Primary Unavailable Results TSH THYROID STIMULATING HORM ONE* - Collect Date/Time: 05/21/2023 11:48 [facility] ID: [id number] [address] [place] [address], [address] LOINC: 3014-8 Test Value Unit Reference Range Code Code System Flag TSH 2.546 uIU/mL L=0.360 H=3.740 3014-8 LOINC TROPONIN HIGH SENSITIVITY* - Collect Date/Time: 05/21/2023 11:48 [facility] ID: [id number] [address] [place] [address], [address] LOINC: 82657-0 Test Value Unit Reference Range Code Code System Flag TROPONIN HS 5.1 pg/mL L=0.0 H=60.4 Specimen seq. RANDOM BNP (PRO-B NATRIURETIC PEPTI DE) - Collect Date/Time: 05/21/2023 11:48 [facility] ID: [id number] [address] [place] [address], [address] LOINC: 89158-6 Test Value Unit Reference Range Code Code System Flag NT-proBNP 118.0 pg/mL L=0.0 H=450 06226-5 LOINC CBC W/ DIFFERENTIAL* - Colle ct Date/Time: 05/21/2023 11:48 [facility] ID: [id number] [address] [place] [address] [place], [address] LOINC: 78922-0 Test Value Unit Reference Range Code Code System Flag WBC 5.04 th/cmm L=5.00 H=10.00 6690-2 LOINC NEUT % 57.1 % L=40.0 H=80.0 LYMPH % 26.0 % L=10.0 H=50.0 MONO % 11.5 % L=2.0 H=12.0 30747-8 LOINC EOS % 4.4 % L=0.0 H=8.0 BASO % 0.8 % L=0.0 H=3.0 IG % 0.2 % L=0.0 H=1.1 2514-8 LOINC NRBC % 0.0 % L=0.0 H=0.0 23618-5 LOINC NEUT abs count 2.9 th/cmm L=1.6 H=8.4 751-8 LOINC LYMPH abs count 1.3 th/cmm L=1.5 H=4.0 731-0 LOINC L MONO abs count 0.6 th/cmm L=0.2 H=1.0 742-7 LOINC EOS abs count 0.2 th/cmm L=0.0 H=0.5 711-2 LOINC BASO abs count 0.0 th/cmm L=0.0 H=0.2 704-7 LOINC IG abs count 0.0 th/cmm L=0.0 H=0.1 71621-5 LOINC NRBC abs count 0.0 mil/cmm L=0.0 H=0.0 33197-7 LOINC RBC 4.15 mil/cmm L=3.90 H=5.40 789-8 LOINC HEMOGLOBIN 12.6 gm/dL L=12.0 H=16.0 718-7 LOINC HEMATOCRIT 39 % L=37 H=47 4544-3 LOINC MCV 93 fL L=82 H=92 787-2 LOINC H MCH 30.4 pg L=27.0 H=31.0 785-6 LOINC MCHC 32.7 % L=32.0 H=36.0 786-4 LOINC RDW-SD 46.8 fL L=39.0 H=49.0 788-0 LOINC PLATELET COUNT 82 th/cmm L=150 H=450 777-3 LOINC L BASIC METABOLIC PANEL (BMP) - Collect Date/Time: 05/21/2023 11:48 [facility] ID: [id number] [address] [place], [place], [address] LOINC: 56226-0 Test Value Unit Reference Range Code Code System Flag GLUCOSE 178 mg/dL L=70 H=116 2345-7 LOINC H BUN 29 mg/dL L=6 H=25 3094-0 LOINC H CREATININE 0.85 mg/dL L=0.51 H=0.95 2160-0 LOINC SODIUM SERUM 137 mmol/L L=136 H=145 2951-2 LOINC POTASSIUM SERUM 3.7 mmol/L L=3.4 H=5.2 2823-3 LOINC CHLORIDE SERUM 100 mmol/L L=96 H=110 2075-0 LOINC CARBON DIOXIDE (CO2) 29 mmol/L L=22 H=34 2028-9 LOINC ANION GAP 7.7 mmol/L 55925-1 LOINC CALCIUM SERUM 9.4 mg/dL L=8.2 H=10.2 19598-3 LOINC AGE 82 years eGFR (non-Afr.Amer.) 64 mL/min 24627-8 LOINC eGFR (Afr-Omani) 78 mL/min 88975-5 LOINC Social History Type Status Start Date End Date Code Code Syst em Smoking History Never smoker (Never Smoked) 161941323 SNOMED CT Sex Female Medications Medication Start Date End Date Route Frequency Dose Code Code System Medication Instructions Home Meds Atorvastatin Calcium 20MG Oral Tablet 08/20/2019 Unknown ORAL BEDTIME 20 MILLIGRAMS 662179 RxNorm TAKE 20 MILLIGRAMS ORAL BEDTIME Fish Oil 1000MG Oral Capsule, Liquid Filled 08/20/2019 Unknown ORAL DAILY 3 CAPSULE 804065 RxNorm TAKE 3 CAPSULE ORAL DAILY Gabapentin 800MG Oral Tablet 08/20/2019 Unknown ORAL TWICE A DAY 1 TABLET 819916 RxNorm TAKE 1 TABLET ORAL TWICE A DAY Lisinopril 20MG Oral Tablet 08/20/2019 Unknown ORAL DAILY 20 MILLIGRAMS 209974 RxNorm TAKE 20 MILLIGRAMS ORAL DAILY Multiple Vitamin Formula Oral Tablet 08/20/2019 Unknown ORAL DAILY 1 unit(s) 6791246 RxNorm TAKE 1 EACH ORAL DAILY Pramipexole Dihydrochloride 0.125MG Oral Tablet 08/20/2019 09/30/19 24 ORAL BEDTIME 2 TABLET 650136 RxNorm TAKE 2 TABLET ORAL BEDTIME glipiZIDE 10MG Oral Tablet, Extended Release 08/20/2019 Unknown ORAL DAILY 10 MILLIGRAMS 134584 RxNorm TAKE 10 MILLIGRAMS ORAL DAILY metFORMIN HCl 1000MG Oral Tablet 08/20/2019 Unknown ORAL TWICE A DAY WITH FOOD 1000 MILLIGRAMS 019692 RxNorm TAKE 1000 MILLIGRAMS ORAL TWICE A DAY WITH FOOD Keflex 500MG Oral Capsule 01/02/2022 09/30/19 24 ORAL THREE TIMES A DAY 1 CAPSULE 263671 RxNorm TAKE 1 CAPSULE ORAL THREE TIMES A DAY Nystatin 777575A/1ML Oral Suspension 01/02/2022 09/30/19 24 ORAL FOUR TIMES A DAY 5 mL 642247 RxNorm TAKE 5 mL ORAL FOUR TIMES A DAY Hospital Discharge Instructions Should you have any questions prior to discharge, please contact a member of your healthcare team. If you have left the hospital and have any questions, please contact your primary care physician. Reason For Referral No Data Found Problems Problem Start Date Resolved Date Status Code Code System HTN 08/20/2019 resolved 18132984 SNOMED-CT PERSONAL HISTORY OF BLADDER CA 08/20/2019 resolved 569711108 SNOMED-CT NON-INSULIN DEPENDENT DIABETES MELLITUS 08/20/2019 resolved 90193964 SNOMED-CT 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 406542153 SNOMED-CT CIRRHOSIS - NON-ALCOHOLIC 01/02/2022 resolved 266 948453 SNOMED-CT HIGH CHOLESTEROL 10/01/2023 resolved 60816297 SN OMED-CT Allergies and Adverse Reactions Allergy Substance Reaction Severity Start Date Concern Status Co de Code System CODEINE Active 2670 RxNorm Plan of Treatment NM MPI STR/RST 05/15/2023 CT CHEST W/O CONTRAST 05/18/2022 CT CHEST W/O CONTRAST 03/26/2022 MRI BRAIN W/O CONTRAST 01/25/2021 Encounters Encounter Diagnosis Start Date Code Code Sys tem Dyspnea 05/21/2023 158746494 SNOMED-CT Personal Care Team Section Performer Name Performer Role Active Date Inactive Da te
--- OUTSIDE RECORDS SUMMARY | 2023-12-02 18:30 | XMS_ITS ---
Author Organization Unknown Address [address] [place] [address] [phone] Phone Care Team Providers Care Videotape Recording Engineer Name Role Phone MCCORMACK CRYSTAL Gallo Attending Unavailable ERAN Viera Primary Unavailable Results TROPONIN HIGH SENSITIVITY* - Collect Date/Time: 08/28/2023 12:51 [facility] ID: [id number] - [id number] [address] [place] [address], [address] LOINC: 18310-4 Test Value Unit Reference Range Code Code System Flag TROPONIN HS < 4.0 pg/mL L=0.0 H=60.4 Specimen seq. RANDOM LIPID PANEL* - Collect Date/ Time: 08/28/2023 12:51 [facility] ID: [id number] - [id number] [address] [place] [address], [id number] LOINC: Test Value Unit Reference Range Code Code System Flag FASTING STATUS: NON FASTING CHOLESTEROL 98 mg/dL L=0 H=200 2093-3 LOINC TRIGLYCERIDES 155 mg/dL L=57 H=256 2571-8 LOINC HDL 41 mg/dL L=38 H=92 2085-9 LOINC non-HDL-C 57 mg/dL L=0 H=160 94610-9 LOINC LDL (CALC) 26 mg/dL L=0 H=130 89774-1 LOINC % HDL 41.8 % Chol/HDL Ratio 2.4 L=0.0 H=4.4 9830-1 LOINC CHD Relative Risk 0.5 x Avg L=0.0 H=1.0 LDL/HDL Ratio 0.6 L=0.0 H=3.2 63881-5 LOINC CHD Relative Risk. 0.2 x Avg L=0.0 H=1.0 HEPATIC FUNCTION PANEL - Col lect Date/Time: 08/28/2023 12:51 [facility] ID: [id number] - [id number] [address] [place], [place], [id number] LOINC: 08825-8 Test Value Unit Reference Range Code Code System Flag ALBUMIN 3.7 gm/dL L=3.4 H=5.0 1751-7 LOINC TOTAL PROTEIN 7.3 gm/dL L=6.0 H=8.0 2885-2 LOINC BILIRUBIN TOTAL 0.5 mg/dL L=0.0 H=1.3 1975-2 LOINC BILIRUBIN DIRECT 0.20 mg/dL L=0.00 H=0.50 1971-1 LOINC SGOT (AST) 28 U/L L=15 H=37 1920-8 LOINC SGPT (ALT) 44 U/L L=12 H=78 1742-6 LOINC ALK. PHOS. 110 U/L L=46 H=116 6768-6 LOINC CBC W/ DIFFERENTIAL* - Colle ct Date/Time: 08/28/2023 12:51 [facility] ID: [id number] [address] [place], [place], [address] LOINC: 36789-0 Test Value Unit Reference Range Code Code System Flag WBC 4.62 th/cmm L=5.00 H=10.00 6690-2 LOINC L NEUT % 60.7 % L=40.0 H=80.0 LYMPH % 29.2 % L=10.0 H=50.0 MONO % 8.2 % L=2.0 H=12.0 81628-7 LOINC EOS % 1.3 % L=0.0 H=8.0 BASO % 0.4 % L=0.0 H=3.0 IG % 0.2 % L=0.0 H=1.1 2514-8 LOINC NRBC % 0.0 % L=0.0 H=0.0 77764-0 LOINC NEUT abs count 2.8 th/cmm L=1.6 H=8.4 751-8 LOINC LYMPH abs count 1.4 th/cmm L=1.5 H=4.0 731-0 LOINC L MONO abs count 0.4 th/cmm L=0.2 H=1.0 742-7 LOINC EOS abs count 0.1 th/cmm L=0.0 H=0.5 711-2 LOINC BASO abs count 0.0 th/cmm L=0.0 H=0.2 704-7 LOINC IG abs count 0.0 th/cmm L=0.0 H=0.1 50817-4 LOINC NRBC abs count 0.0 mil/cmm L=0.0 H=0.0 10218-0 LOINC RBC 4.10 mil/cmm L=3.90 H=5.40 789-8 LOINC HEMOGLOBIN 12.5 gm/dL L=12.0 H=16.0 718-7 LOINC HEMATOCRIT 38 % L=37 H=47 4544-3 LOINC MCV 93 fL L=82 H=92 787-2 LOINC H MCH 30.5 pg L=27.0 H=31.0 785-6 LOINC MCHC 32.6 % L=32.0 H=36.0 786-4 LOINC RDW-SD 46.1 fL L=39.0 H=49.0 788-0 LOINC PLATELET COUNT 80 th/cmm L=150 H=450 777-3 LOINC L BNP (PRO-B NATRIURETIC PEPTI DE) - Collect Date/Time: 08/28/2023 12:51 [facility] ID: [id number] - [id number] [address] [place] [address], [address] LOINC: 75584-9 Test Value Unit Reference Range Code Code System Flag NT-proBNP 205.0 pg/mL L=0.0 H=450 76337-0 LOINC BASIC METABOLIC PANEL (BMP) - Collect Date/Time: 08/28/2023 12:51 [facility] ID: [id number] [address] [place] [address], [address] LOINC: 34396-0 Test Value Unit Reference Range Code Code System Flag GLUCOSE 117 mg/dL L=70 H=116 2345-7 LOINC H BUN 23 mg/dL L=6 H=25 3094-0 LOINC CREATININE 0.78 mg/dL L=0.51 H=0.95 2160-0 LOINC SODIUM SERUM 143 mmol/L L=136 H=145 2951-2 LOINC POTASSIUM SERUM 4.2 mmol/L L=3.4 H=5.2 2823-3 LOINC CHLORIDE SERUM 104 mmol/L L=96 H=110 2075-0 LOINC CARBON DIOXIDE (CO2) 30 mmol/L L=22 H=34 2028-9 LOINC ANION GAP 9.4 mmol/L 60678-8 LOINC CALCIUM SERUM 9.7 mg/dL L=8.2 H=10.2 31791-9 LOINC AGE 83 years eGFR (non-Afr.Amer.) 71 mL/min 47935-3 LOINC eGFR (Afr-[place]ankan) 86 mL/min 04130-6 LOINC Social History Type Status Start Date End Date Code Code Syst em Smoking History Never smoker (Never Smoked) 108321726 SNOMED CT Sex Female Medications Medication Start Date End Date Route Frequency Dose Code Code System Medication Instructions Home Meds Atorvastatin Calcium 20MG Oral Tablet 08/20/2019 Unknown ORAL BEDTIME 20 MILLIGRAMS 620379 RxNorm TAKE 20 MILLIGRAMS ORAL BEDTIME Fish Oil 1000MG Oral Capsule, Liquid Filled 08/20/2019 Unknown ORAL DAILY 3 CAPSULE 979512 RxNorm TAKE 3 CAPSULE ORAL DAILY Gabapentin 800MG Oral Tablet 08/20/2019 Unknown ORAL TWICE A DAY 1 TABLET 401241 RxNorm TAKE 1 TABLET ORAL TWICE A DAY Lisinopril 20MG Oral Tablet 08/20/2019 Unknown ORAL DAILY 20 MILLIGRAMS 593803 RxNorm TAKE 20 MILLIGRAMS ORAL DAILY Multiple Vitamin Formula Oral Tablet 08/20/2019 Unknown ORAL DAILY 1 unit(s) 3932094 RxNorm TAKE 1 EACH ORAL DAILY Pramipexole Dihydrochloride 0.125MG Oral Tablet 08/20/2019 09/30/19 24 ORAL BEDTIME 2 TABLET 359754 RxNorm TAKE 2 TABLET ORAL BEDTIME glipiZIDE 10MG Oral Tablet, Extended Release 08/20/2019 Unknown ORAL DAILY 10 MILLIGRAMS 533326 RxNorm TAKE 10 MILLIGRAMS ORAL DAILY metFORMIN HCl 1000MG Oral Tablet 08/20/2019 Unknown ORAL TWICE A DAY WITH FOOD 1000 MILLIGRAMS 102621 RxNorm TAKE 1000 MILLIGRAMS ORAL TWICE A DAY WITH FOOD Keflex 500MG Oral Capsule 01/02/2022 09/30/19 24 ORAL THREE TIMES A DAY 1 CAPSULE 221981 RxNorm TAKE 1 CAPSULE ORAL THREE TIMES A DAY Nystatin 630561Z/1ML Oral Suspension 01/02/2022 09/30/19 24 ORAL FOUR TIMES A DAY 5 mL 884324 RxNorm TAKE 5 mL ORAL FOUR TIMES A DAY Hospital Discharge Instructions Should you have any questions prior to discharge, please contact a member of your healthcare team. If you have left the hospital and have any questions, please contact your primary care physician. Reason For Referral No Data Found Problems Problem Start Date Resolved Date Status Code Code System HTN 08/20/2019 resolved 21711276 SNOMED-CT PERSONAL HISTORY OF BLADDER CA 08/20/2019 resolved 260276953 SNOMED-CT NON-INSULIN DEPENDENT DIABETES MELLITUS 08/20/2019 resolved 65978252 SNOMED-CT 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 557071703 SNOMED-CT CIRRHOSIS - NON-ALCOHOLIC 01/02/2022 resolved 266 896666 SNOMED-CT HIGH CHOLESTEROL 10/01/2023 resolved 35419175 SN OMED-CT Allergies and Adverse Reactions Allergy Substance Reaction Severity Start Date Concern Status Co de Code System CODEINE Active 2670 RxNorm Plan of Treatment NM MPI STR/RST 05/15/2023 CT CHEST W/O CONTRAST 05/18/2022 CT CHEST W/O CONTRAST 03/26/2022 MRI BRAIN W/O CONTRAST 01/25/2021 Encounters Encounter Diagnosis Start Date Code Code Sys tem Dyspnea 08/28/2023 138364314 SNOMED-CT Personal Care Team Section Performer Name Performer Role Active Date Inactive Da lanette
--- OUTSIDE RECORDS SUMMARY | 2023-12-02 18:30 | XMS_ITS ---
Author Organization Unknown Address [address] [place] [phone] Phone Care Team Providers Care Ecology Teacher Name Role Phone LYNN VILLEDA Attending Unavailable ERAN Viera Primary Unavailable Results NM MPI COMPLETE - Completed: 05/15/2023 15:43 LOINC: [place], [place] [address] PACS CLAIMS ASSISTANT REPORT Patient Name: NICK MENDIETA MRN: Sex: : Age: [id number] F 1940 82 Account: Accession: Admit: StayType: [id number] 05/15/2023 CLINIC Ordered: Order ID: Submitted: Ordering Provider: 05/15/2023 14:10 [id number] HTP CHRISTIANA BAILEY Completed: Technologist: Resulted: 05/15/2023 15:43 HTP 05/15/2023 16:13 Exercise Nuclear Stress Test Date: 05/15/2023 02:18 PM EST Ordering Provider: CHRISTIANA BAILEY Referring Provider: CHRISTIANA BAILEY ID number: [id number] Date of : 1940 Age: 82Y Indication for test: CHEST PAIN, JIMENEZ, HTN The patient underwent exercise nuclear stress testing. 10.4 mCi technetium administered at 1350 hours as rest dose radionuclide 29.4 mCi technetium administered at 1510 hours as stress dose radionuclide Patient ambulated: 4 minutes and 0 seconds of a standard Sanjeev protocol Peak heart rate 134 bpm, 96% of maximally age-predicted heart rate METS (Metabolic Equivalents): 4.6 Functional capacity: Average Test stopped due to: Fatigue, dyspnea Chest pain: Patient developed 5/10 throat burning with exercise. Resolved by 3 minutes recovery Arrhythmia: None EKG changes: None Hemodynamics: Normal Oxygen saturation: 95% armaan Gated imaging demonstrates an ejection fraction of 70%, normal regional and global wall motion. Transient ischemic dilatation index: 1.07. Perfusion imaging demonstrates normal perfusion. Conclusions: Negative ischemia. Normal LV systolic function. Report Digitally Signed by Fantasma Ortega on 05/15/2023 04:13 PM EST Social History Type Status Start Date End Date Code Code Syst em Smoking History Never smoker (Never Smoked) 486544981 SNOMED CT Sex Female Medications Medication Start Date End Date Route Frequency Dose Code Code System Medication Instructions Home Meds Atorvastatin Calcium 20MG Oral Tablet 08/20/2019 Unknown ORAL BEDTIME 20 MILLIGRAMS 766430 RxNorm TAKE 20 MILLIGRAMS ORAL BEDTIME Fish Oil 1000MG Oral Capsule, Liquid Filled 08/20/2019 Unknown ORAL DAILY 3 CAPSULE 458941 RxNorm TAKE 3 CAPSULE ORAL DAILY Gabapentin 800MG Oral Tablet 08/20/2019 Unknown ORAL TWICE A DAY 1 TABLET 896637 RxNorm TAKE 1 TABLET ORAL TWICE A DAY Lisinopril 20MG Oral Tablet 08/20/2019 Unknown ORAL DAILY 20 MILLIGRAMS 063954 RxNorm TAKE 20 MILLIGRAMS ORAL DAILY Multiple Vitamin Formula Oral Tablet 08/20/2019 Unknown ORAL DAILY 1 unit(s) 1075986 RxNorm TAKE 1 EACH ORAL DAILY Pramipexole Dihydrochloride 0.125MG Oral Tablet 08/20/2019 09/30/19 24 ORAL BEDTIME 2 TABLET 131755 RxNorm TAKE 2 TABLET ORAL BEDTIME glipiZIDE 10MG Oral Tablet, Extended Release 08/20/2019 Unknown ORAL DAILY 10 MILLIGRAMS 279765 RxNorm TAKE 10 MILLIGRAMS ORAL DAILY metFORMIN HCl 1000MG Oral Tablet 08/20/2019 Unknown ORAL TWICE A DAY WITH FOOD 1000 MILLIGRAMS 147660 RxNorm TAKE 1000 MILLIGRAMS ORAL TWICE A DAY WITH FOOD Keflex 500MG Oral Capsule 01/02/2022 09/30/19 24 ORAL THREE TIMES A DAY 1 CAPSULE 578837 RxNorm TAKE 1 CAPSULE ORAL THREE TIMES A DAY Nystatin 402108A/1ML Oral Suspension 01/02/2022 09/30/19 24 ORAL FOUR TIMES A DAY 5 mL 781031 RxNorm TAKE 5 mL ORAL FOUR TIMES A DAY Hospital Discharge Instructions Should you have any questions prior to discharge, please contact a member of your healthcare team. If you have left the hospital and have any questions, please contact your primary care physician. Reason For Referral No Data Found Problems Problem Start Date Resolved Date Status Code Code System HTN 08/20/2019 resolved 05715102 SNOMED-CT PERSONAL HISTORY OF BLADDER CA 08/20/2019 resolved 555438119 SNOMED-CT NON-INSULIN DEPENDENT DIABETES MELLITUS 08/20/2019 resolved 79991598 SNOMED-CT 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 432732113 SNOMED-CT CIRRHOSIS - NON-ALCOHOLIC 01/02/2022 resolved 266 149066 SNOMED-CT HIGH CHOLESTEROL 10/01/2023 resolved 81291120 SN OMED-CT Allergies and Adverse Reactions Allergy Substance Reaction Severity Start Date Concern Status Co de Code System CODEINE Active 2670 RxNorm Plan of Treatment NM MPI STR/RST 05/15/2023 CT CHEST W/O CONTRAST 05/18/2022 CT CHEST W/O CONTRAST 03/26/2022 MRI BRAIN W/O CONTRAST 01/25/2021 Encounters Encounter Diagnosis Start Date Code Code Sys tem Chest pain, unspecified 05/15/2023 SNOM ED-CT Personal Care Team Section Performer Name Performer Role Active Date Inactive Da te
--- OUTSIDE RECORDS SUMMARY | 2023-12-02 18:31 | XMS_ITS ---
Author Organization Unknown Address [address] [place] [address] [phone] Phone Care Team Providers Care New Order Clerk Name Role Phone MCCORMACKMORENITA ROJAS Sabino Attending Unavailable ERAN RUPAL Aylin Primary Unavailable Social History Type Status Start Date End Date Code Code Syst em Smoking History Never smoker (Never Smoked) 826066270 SNOMED CT Sex Female Medications Medication Start Date End Date Route Frequency Dose Code Code System Medication Instructions Home Meds Atorvastatin Calcium 20MG Oral Tablet 08/20/2019 Unknown ORAL BEDTIME 20 MILLIGRAMS 004667 RxNorm TAKE 20 MILLIGRAMS ORAL BEDTIME Fish Oil 1000MG Oral Capsule, Liquid Filled 08/20/2019 Unknown ORAL DAILY 3 CAPSULE 173560 RxNorm TAKE 3 CAPSULE ORAL DAILY Gabapentin 800MG Oral Tablet 08/20/2019 Unknown ORAL TWICE A DAY 1 TABLET 011104 RxNorm TAKE 1 TABLET ORAL TWICE A DAY Lisinopril 20MG Oral Tablet 08/20/2019 Unknown ORAL DAILY 20 MILLIGRAMS 604649 RxNorm TAKE 20 MILLIGRAMS ORAL DAILY Multiple Vitamin Formula Oral Tablet 08/20/2019 Unknown ORAL DAILY 1 unit(s) 2320889 RxNorm TAKE 1 EACH ORAL DAILY glipiZIDE 10MG Oral Tablet, Extended Release 08/20/2019 Unknown ORAL DAILY 10 MILLIGRAMS 048898 RxNorm TAKE 10 MILLIGRAMS ORAL DAILY metFORMIN HCl 1000MG Oral Tablet 08/20/2019 Unknown ORAL TWICE A DAY WITH FOOD 1000 MILLIGRAMS 275730 RxNorm TAKE 1000 MILLIGRAMS ORAL TWICE A DAY WITH FOOD Hospital Discharge Instructions Should you have any questions prior to discharge, please contact a member of your healthcare team. If you have left the hospital and have any questions, please contact your primary care physician. Reason For Referral No Data Found Problems Problem Start Date Resolved Date Status Code Code System HTN 08/20/2019 resolved 81228065 SNOMED-CT PERSONAL HISTORY OF BLADDER CA 08/20/2019 resolved 345806476 SNOMED-CT NON-INSULIN DEPENDENT DIABETES MELLITUS 08/20/2019 resolved 07725580 SNOMED-CT 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 509856356 SNOMED-CT CIRRHOSIS - NON-ALCOHOLIC 01/02/2022 resolved 266 971588 SNOMED-CT HIGH CHOLESTEROL 10/01/2023 resolved 17191199 SN OMED-CT Allergies and Adverse Reactions Allergy Substance Reaction Severity Start Date Concern Status Co de Code System CODEINE Active 2610 RxNorm Plan of Treatment NM MPI STR/RST 05/15/2023 CT CHEST W/O CONTRAST 05/18/2022 CT CHEST W/O CONTRAST 03/26/2022 MRI BRAIN W/O CONTRAST 01/25/2021 Encounters Encounter Diagnosis Start Date Code Code Sys tem Atherosclerosis of artery 10/02/2023 825612336 SN OMED-CT Personal Care Team Section Performer Name Performer Role Active Date Inactive Da lanette
--- OUTSIDE RECORDS SUMMARY | 2023-12-02 18:31 | XMS_ITS ---
Author Organization Unknown Address [address] [place] [phone] Phone Care Team Providers Care Engraving Operator Name Role Phone MCCORMACKMORENITA ROJAS Sabino Attending Unavailable ERAN RUPAL Aylin Primary Unavailable Social History Type Status Start Date End Date Code Code Syst em Smoking History Never smoker (Never Smoked) 988837153 SNOMED CT Sex Female Medications Medication Start Date End Date Route Frequency Dose Code Code System Medication Instructions Home Meds Atorvastatin Calcium 20MG Oral Tablet 08/20/2019 Unknown ORAL BEDTIME 20 MILLIGRAMS 860953 RxNorm TAKE 20 MILLIGRAMS ORAL BEDTIME Fish Oil 1000MG Oral Capsule, Liquid Filled 08/20/2019 Unknown ORAL DAILY 3 CAPSULE 888037 RxNorm TAKE 3 CAPSULE ORAL DAILY Gabapentin 800MG Oral Tablet 08/20/2019 Unknown ORAL TWICE A DAY 1 TABLET 212399 RxNorm TAKE 1 TABLET ORAL TWICE A DAY Lisinopril 20MG Oral Tablet 08/20/2019 Unknown ORAL DAILY 20 MILLIGRAMS 004955 RxNorm TAKE 20 MILLIGRAMS ORAL DAILY Multiple Vitamin Formula Oral Tablet 08/20/2019 Unknown ORAL DAILY 1 unit(s) 7225914 RxNorm TAKE 1 EACH ORAL DAILY glipiZIDE 10MG Oral Tablet, Extended Release 08/20/2019 Unknown ORAL DAILY 10 MILLIGRAMS 142603 RxNorm TAKE 10 MILLIGRAMS ORAL DAILY metFORMIN HCl 1000MG Oral Tablet 08/20/2019 Unknown ORAL TWICE A DAY WITH FOOD 1000 MILLIGRAMS 842648 RxNorm TAKE 1000 MILLIGRAMS ORAL TWICE A [...] Status Code Code System HTN 08/20/2019 resolved 97626170 SNOMED-CT PERSONAL HISTORY OF BLADDER CA 08/20/2019 resolved 045443148 SNOMED-CT NON-INSULIN DEPENDENT DIABETES MELLITUS 08/20/2019 resolved 96193622 SNOMED-CT 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 935041319 SNOMED-CT CIRRHOSIS - NON-ALCOHOLIC 01/02/2022 resolved 266 821628 SNOMED-CT HIGH CHOLESTEROL 10/01/2023 resolved 56082602 SN OMED-CT Allergies and Adverse Reactions Allergy Substance Reaction Severity Start Date Concern Status Co de Code System CODEINE Active 8106 RxNorm Plan of Treatment NM MPI STR/RST 05/15/2023 CT CHEST W/O CONTRAST 05/18/2022 CT CHEST W/O CONTRAST 03/26/2022 MRI BRAIN W/O CONTRAST 01/25/2021 Encounters Encounter Diagnosis Start Date Code Code Sys tem Aortic stenosis, non-rheumatic 11/13/2023 348624789 SNOMED-CT Personal Care Team Section Performer Name Performer Role Active Date Inactive Da te
--- OUTSIDE RECORDS SUMMARY | 2023-12-02 18:32 | XMS_ITS | Continuity of Care Document ---
Author Organization [facility] Address [address] [place] [address] Care Team Providers Care Steward/Stewardess Night Name Role Phone CRYSTAL ORTEGA Receiver Setter LANI WALLIS Bulk Plant Manager Assessment No assessment recorded. Plan of Treatment Reminders Order Date Submit Date Provider Last Modified By Organization Details Last Modified Time Details Appointments Acute 30 2023 01:30P M Not available Not available Not available Nurse Visit 20 2023 05:00P M Not available Not available Not available Follow Up 30 2023 11:30A M Not available Not available Not available Lab bacterial vaginosis + vaginitis panel, vaginal - vaginal 2023 024 isidra n21 [facility] (Registration ), [address] [place] [address], [place], [address], 11/01/2023 06:49:18 Referral None recorded. Procedures None recorded. Surgeries None recorded. Imaging None recorded. Medication Orders None recorded. Patient TargetsNo targets recorded. Patient InstructionsNo instructions recorded. Reason for Referral Physical Therapist Referral for Vertigo referral made at patient's request Referring Physician: Family Jhon Medicine, Encounter Date: 08/20/2023 pt with compensated cirrhosi s with chronic thrombocytopenia, may need cardiac stent and cards (Dr. Ortega) concerned whether she could tolerate dual anti-PLT agents. Pls eval. Semi-urgent. Referring Physician: Family Saqib Rodriguez, Encounter Date: 10/07/2023 Results Created Date Observation Date Name Description Value Unit Range Abnormal Flag Note LastModifiedBy Organization Detail LastModifiedTime 10/01/19 24 09/30/2023 xr chest nik ble or 1V [facility] [place] [id number] INFINI TT PACS TRANSC RIPTIO N REPORT _ Patien t Name: CRISTEL SEGUNDO MRN: Sex: : Age: [id number] F [id number] Accoun t: Access ion: Admit: StayTy pe: [id number] E Ravinder d: Order ID: Submit nate: David Klein er: 2023 22:41 [id number] LUIS A CAMPOS nate: Techno logist : Result ed: 2023 22:51 MF 2023 09:06 _ FINAL REPORT EXAM: XR CHEST PORTAB LE OR 1V CLINIC AL HISTOR Y: Reason for Chest: Chest Pain TECHNI QUE: 2D digita l imagin g was perfor med of the chest. One image was obtain ed. An AP view was obtain ed. COMPAR GÓMEZ: XR CHEST 2V PA AND LATERA L from 2022 FINDIN GS: MEDIAS TINUM: Normal . HEART: Normal . PULMON MO VASCUL ATURE: Normal . LUNGS: Clear. PLEURA L SPACE: No pleura l effusi on or pneumo thorax . BONE:W ithin normal limits for the patien t's age. OTHER FINDIN GS:Nor mal. IMPRES TY: No acute pulmon mo findin gs. DATA REPOSI TORY: RADIAT ION DOSE DELIVE RED: Electr onical ly signed by: Kris Ferguson ed: 2023 09:[email or web address] (Lab) [address] [place] [address], [address], 10/01/2023 16:07:13 10/01/19 24 10/01/2023 CT angio chest ABD pelvi s W IV contr st* [facility] RADIOL OGY [place] [address] INFINI TT PACS TRANSC RIPTIO N REPORT _ Patien t Name: CRISTEL SEGUNDO MRN: Sex: : Age: [id number] F [id number] Accoun t: Access ion: Admit: StayTy pe: [id number] E Ravinder d: Order ID: Submit nate: David aly Provid er: 2023 23:30 [id number] LUIS A VEGA nate: Techno logist : Result ed: 2023 23:53 MF 2023 09:22 _ FINAL REPORT EXAM: CT ANGIO CHEST ABD PELVIS W IV CONTRS T CLINIC AL HISTOR Y: Reason for CT: Chest Pain. TECHNI QUE: Imagin g Protoc ol: Axial CT angiog dorothea was perfor med with multi- slice acquis ition and multi- planar and/or 3D recons tructi ons. CONTRA ST MATERI AL: Intrav enous: Omnipa que. Contra st volume :75 mL Oral: No COMPAR GÓMEZ: CT ANGIOG DOROTHEA * PULMON MO (PE) from 2018 XR CHEST 2V PA AND LATERA L from 2022 XR CHEST PORTAB LE OR 1V from 2023 FINDIN GS: CHEST: Trache obronc hial tree: Patent where visual ized. Pulmon mo parenc hyma: There has been interv al increa se in size of the well-c ircums cribed hypode nse nodule in the right lower lobe. The nodule measur es 1.5 x 1.4 x 2.2 centim eters. There also a cluste r of small nodule s in the inferi or aspect of the right upper lobe. The larges t measur es 6 millim eters. There is a 4 millim eter perifi ssural nodule associ ated with right minor fissur e. No focal consol idatin g infilt rates are seen. Pulmon mo Arteri es: No eviden ce of fillin g defect to sugges t pulmon mo emboli . Medias tinum and Diane: No domina nt adenop athy or fluid collec tion. The esopha lavell is unrema rkable . Visual ized thyroi d: Unrema rkable . Pleura : No effusi on or pneumo thorax . Heart: Cardio megaly . Prakash ry artery calcif icatio ns. Mitral calcif icatio n is presen t. No perica rdial effusi on. Aorta: Thorac ic aorta non-di lated. No eviden ce of dissec tion. Athero sclero tic calcif icatio n is presen t. Soft Tissue s: Unrema rkable . Bones: Within normal limits for the patien t's age. ABDOME N AND PELVIS : Abdome n: Celiac axis/m esente dharmesh arteri es: No eviden ce of occlus ion or signif icant stenos is. Athero sclero tic calcif icatio n of the origin of the celiac axis. Renal Arteri es: No eviden ce of occlus ion or signif icant stenos is. Athero sclero tic calcif icatio n at the origin s of both renal arteri es. Aorta: No eviden ce of occlus ion or signif icant stenos is. No aneury sm or dissec tion. Athero sclero tic calcif icatio n is presen t. Pelvis : Iliac Arteri es: No eviden ce of occlus ion or signif icant stenos is. Sclero tic calcif icatio n is presen t. Common Femora l Arteri es: No eviden ce of occlus ion or signif icant stenos is. ABDOME N: Liver: The lobula nate appear ance of the liver sugges ting hepati c cirrho sis. The liver is enlarg ed. No measur able mass. Gallbl adder and Biliar y Tract: The gallbl adder is absent . No signif icant biliar y ductal dilata tion is presen t. Pancre as: Normal densit y, no abnorm al calcif icatio ns or inflam matory proces s. Spleen : Spleno megaly . Adrena ls: No masses seen. Kidney s: Normal size, contou r and axis. No radiod ense stones or obstru ctive uropat hy. No masses seen. Bowel: The stomac h is incomp letely disten ded limiti ng evalua tion. There is divert iculos is of the colon withou t eviden ce of acute divert iculit is. There is no eviden ce of bowel wall thicke harika or bowel obstru ction. No eviden ce of append icitis . Perito isabell Cavity : No ascite s, collec tion or mesent natalya inflam matory respon se. No free air. Lymph Nodes: Within normal limits . Bones: Within normal limits for the patien t's age. Soft Tissue s: Fat contai harika inguin al hernia s are presen t. PELVIS : Bladde r: There is mild thicke harika of the wall of the urinar y bladde r. This may be due to underd istent ion. Reprod uctive Organs : Status post hyster ectomy . Lymph Nodes: Within normal limits . Bones: Within normal limits for the patien t's age. IMPRES TY: 1. No eviden ce of aortic dissec tion or aneury sm. 2. Interv al increa se in size of the left lower lobe pulmon mo nodule . If clinic ally approp riate, PET scan may be obtain ed for furthe r evalua tion. 3. Cluste r of small nodule s seen in the inferi or aspect of the right upper lobe. This may repres ent infect ious/i nflamm atory nodule s or metast atic diseas e. 4. Findin gs sugges tive of hepati c cirrho sis with hepato megaly and spleno megaly . 5. Mild thicke harika of the wall of the urinar y bladde r. This may be due to underd istent ion versus cystit is. RADIAT ION DOSE DELIVE RED: mGy total DLP DATA REPOSI TORY: All CT scans at this facili ty are submit nate to the Nation al Radiol ogy Data Regist ry (NRDR) Dose Index Regist ry (DIR) with the [place] quinn perez of Radiol ogy (ACR). RADIAT ION OPTIMI ZATION : All CT scans at this facili ty use at least one of these dose optimi zation techni ques: automa nate exposu re contro l; mA and/or kV adjust ment per patien t size (inclu matt target ed exams where dose is matche d to clinic al indica tion); or iterat keshia recons tructi on. Electr onical ly signed by: Kris Ferguson ed: 2023 09:[address] (Lab) [address] [place] [address], [address], 10/01/2023 16:07:14 10/01/19 24 09/30/2023 EKG order yony ng 12 [facility] [place] [facility] [id number] EKG TRANSC FOZIA N REPORT _ Accoun t: Access ion: Admit: StayTy pe: [id number] E/R Observ ation: Order ID: Submit nate: David aly Provid er: 2023 22:33 [id number] LUIS A ACEVEDO _ [place] [id number] [facility] Test Date: 09-29 Pat Name: CRISTELVICTORIA Esther Khan Depart ment: Julio César bermudez ID: [id number] Room: ED TR Gender : F Techngwendolyn perri: JG : 1941-0 06-22 Reques nate By: LUIS A Khan Order Number : [id number] Kelby mcdaniels MD: Adi rothman Measur ements Interv als Stokes Rate: 94 P: 67 IN: 192 QRS: -21 QRSD: 90 T: 0 QT: 368 QTc: 460 Interp retive Statem ents Normal sinus rhythm Compar ed to ECG 2023 10:56: 00 No signif icant change s Electr onical ly Signed On 9:48:5 6 EDT by Adi mendez[address] [place] [address] (Lab) [address] [place] [address], [address], 10/01/2023 16:07:13 10/17/19 24 10/02/2023 EKG order yony ng 12 lead [facility] [place] [id number] EKG TRANSC FOZIA Morales REPORT _ Accoun t: Access ion: Admit: StayTy pe: [id number] [facility] Observ ation: Order ID: Submit nate: Enrikegwendolyn aly Provid er: 2023 09:52 [id number] HENRRY RENEE _ [place] [id number] [facility] Cardio logy Test Date: 10-01 Pat Name: KAYLEE Khan Depart ment: [facility] Clinic Patien t ID: [id number] Room: [facility] : [facility] : [birth year] Reques nate By: HENRRY Mcdaniels Order Number : [id number] Kelby mcdaniels MD: Jung Corona Measur ements Interv als Stokes Rate: 77 P: 61 IN: 194 QRS: -21 QRSD: 86 T: 0 QT: 394 QTc: 445 Interp retive Statem ents Normal sinus rhythm Compar ed to ECG 2023 22:33: 49 No signif icant change s Electr onical ly Signed On 15:33: 04 EDT by Jung mendez[address] [place] [address] (Lab) [address] [place] [address], [address], 10/18/2023 07:53:24 10/24/19 24 10/24/2023 PET-C T, skull base to mid-t high scan No observ ation record ed. [email or web address] [place], [address], 10/29/2023 13:01:17 11/14/19 24 11/13/2023 EKG order yony aly 12 lead [facility] [address] EKG TRANSC RIPTIO N REPORT _ Accoun t: Access ion: Admit: StayTy pe: [id number] 11/13/19 24 [facility] Observ ation: Order ID: Submit nate: David Ernie er: 2023 09:24 [id number] HENRRY RENEE _ [place] [id number] [facility] Cardio log[facility] Test Date: 11-12 Pat Name: KAYLEE Khan Depart ment: Cardio logy Clinic Patimarisol t ID: [id number] Room: Gender : Yue Reardon perri: [facility] : 1941-0 06-22 Reques nate By: HENRRY Mcdaniels Order Number : [id number] Kelby mcdaniels MD: Henrry Ortega Measur ements Interv als Stokes Rate: 75 P: 70 IN: 204 QRS: -19 QRSD: 88 T: 0 QT: 404 QTc: 451 Interp retive Statem ents Normal sinus rhythm Low voltag e QRS Compar ed to ECG 2023 09:52: 35 Low QRS voltag e now presen t Electr onical ly Signed On 11-14-19 16:49: 58 EDT by Henrry Ortega [address] (Lab) [address] [place] [address], [address], 11/15/2023 12:39:20 Result Notes None recorded. Problems Name Problem SNOMED Code Status Onset Date Resolution Date Notes Provider Name and Address Organization Details Recorded Time Shannon crawford [id number] Completed 201305/13/2023 Problem Code: I10; Problem Code Type: ICD-10; MD [address]ivan [address], [place], [address] , [facility] 4 13:45:04 Migraine 10864104 Active 2013 Gail rodriguez, [facility] 12:45:27 History of disorder of digestiv e system 468428764 Completed 201305/13/2023 Problem Code: Z87.19; Problem Code Type: ICD-10; MD Livan [address], [facility] [address] , [facility] 4 13:45:04 Restless legs 66546287 Active 2013 Gail rodriguez, [facility] 12:48:18 Disorder of nervous system due to type 2 diabetes mellitus 718120907 Completed 201305/13/2023 04/27/19 20 - Comments only - Liana Boles - - Increase metformi n to 1000 mg BID - slowly increase (whole tab at night, half tab in am for a couple weeks, then 1000 mg BID), call if unable to tolerate dose r/t diarrhea - Check blood sugars every morning (goal <130) and every evening (goal <200) - Will get back to diabetic diet and exercise - If unable to tolerate metformi n, can try increasi ng glipizid e or adding a non-inje ctable medicati on like Invokana Problem Code: E11.49; Problem Code Type: ICD-10; MD [address]ivan [address], [place], [address] , [facility] 13:45:04 Allergic rhinitis 98481125 Completed 201305/13/2023 Problem Code: J30.9; Problem Code Type: ICD-10; MD Livan [address], [facility] [address] , [facility] 4 13:45:04 Mixed hyperlip idemia 458885586 Active 2013 [facility] 4 12:45:48 Neuropat hy due to type 2 diabetes mellitus 71163861072 9106 Active 2013 [facility] 4 12:46:16 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 Boykin, chemo instilla tion, straight caths [facility] 4 12:43:10 History of nutritio nal disorder 786986354 Completed 201405/13/[address], [facility] [address] [place] [address] 4 13:45:04 Irritabl e bowel syndrome 07196797 Active 2014 [facility] 4 12:45:06 Eczema 62600517 Active 2014 [facility] 4 12:38:10 Hernia of abdomina l cavity 11350863 Active 2015 [facility] 4 12:41:15 Cirrhosi s of liver 18173802 Completed 201505/13/2023 09/22/19 20 - Comments only - Nat Bryant M.D. - Has gained some weight, and possibly has ascites, although I have never examined her before. Follow-u p as planned tomorrow [facility] imaging[facility] at [facility] [place] [place]. Problem Code: K74.69; Problem Code Type: ICD-10; MD Livan [address], [place], [address] , [facility] 13:45:04 History of urinary tract infectio n 87004668292 07 Completed 201505/13/2023 08/03/19 16 - Comments only - Raimundo Mascorro - No signs of pyelo (fever, flank pain, nausea). History of bladder cancer, self caths. Urine dip + for blood, nitrites , leuks. Send for culture. Start cipro BID. Order for terazol PRN for VCC, nystatin susp for thrush. Pyridum for analgesi a. Educated about need to continue both Abx for differen t tooth and UTI organism coverage , symptoms of complica tion or non-reso lution, continue PO fluids. F/u PRN or for worsenin g or non-reso lution of UTI. Problem Code: Z87.440; Problem Code Type: ICD-10; MD Livan [address], [place], [address] , [facility] 13:45:04 Screenin g for malignan t neoplasm of breast Completed 201505/13/2023 Problem Code: Z12.39; Problem Code Type: ICD-10; MD Livan [address], [place], [address] , [facility] 4 13:45:04 Candidia sis of vagina 18851980 Completed 201505/13/2023 Problem Code: B37.3; Problem Code Type: ICD-10; MD Livan [address] Dr, [facility] [address] , [facility] 4 13:45:04 Portal hyperten ty 13929733 Active 2015 no ascites or encephal opathy, EGD 2015 (gastric ulcer) [facility] 4 12:47:45 Genitour inary symptoms 560274941 Completed 201504/17/2016 Problem Code: R39.89; Problem Code Type: ICD-10; Not Available [facility] 3 04:10:10 Screenin g for malignan t neoplasm of colon Completed 201605/13/2023 Problem Code: Z12.11; Problem Code Type: ICD-10; MD Livan R[address] Dr, [facility] [address] , [facility] 4 13:45:04 Pneumoni a 026436072 Completed 201602/15/2017 02/12/20 17 - Improved - 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 PLASTICS TECHNICIAN - s/p tx with azithrom ycin pt signific antly improved RTC if sx worsen/p ersist Problem Code: J18.9; Problem Code Type: ICD-10; Not Available [facility] 3 04:10:10 Orthosta tic hypotens ion 85944647 Active 2017 [facility]. 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 4 12:39:42 Hepatic failure 17186208 Completed 201805/13/2023 Problem Code: K72.90; Problem Code Type: ICD-10; MD Livan ROD[address] Dr, [facility] [address] , [facility] 4 13:45:04 Acute upper respirat ory infectio n 82075903 Completed 201811/08/2018 Problem Code: J06.9; Problem Code Type: ICD-10; MD Livan [address], [place], [address] , [facility] 4 13:45:04 Proteinu vinod 88869959 Completed 201805/13/2023 Problem Code: R80.9; Problem Code Type: ICD-10; MD Livan [address], [place], [address] , [facility] 4 13:45:04 Hyperlip idemia 22708613 Active 2018 [facility] 4 12:44:49 Gastroes ophageal reflux disease without esophagi tis 496708771 Active 2019 [facility] 4 12:39:54 Urinary tract infectio us disease 55995103 Completed 201909/29/2019 09/22/19 20 - Comments only - Nat Bryant M.D. - UA positive for leuks, blood, nitrites . Unfortun ately, was not able to provide large enough sample to send for culture. Urine culture from recent hospital ization showed pansensi tive E. coli, so we will treat as they did with cephalex in. Instruct ed her to call with worsenin g or persiste nce. Problem Code: N39.0; Problem Code Type: ICD-10; Not Available [facility] 3 04:10:12 Nervous system and sense organ diseases 973570694 Completed 202005/13/[address], [place], [address] , [facility] 4 13:45:04 Fall on or from stairs or steps Completed 202005/27/2020 Problem Code: W10.9xxA ; Problem Code Type: ICD-10; Not Available [facility] 3 04:10:12 Knee joint effusion 867381654 Completed 202006/06/2020 Problem Code: M25.469; Problem Code Type: ICD-10; Not Available [facility] 3 04:10:13 Low back pain 617863836 Completed 202006/20/2020 Problem Code: M54.5; Problem Code Type: ICD-10; INDIRA YEN Dr, [facility] [address] [facility] 4 14:31:55 Dysuria 27065661 Completed 202009/03/2020 Problem Code: R30.0; Problem Code Type: ICD-10; Not Available [facility] 3 04:10:13 Psychoph ysiologi c insomnia 607554855 Active 2020 Insomnia , chronic [facility] 4 12:48:07 Dizzines s and giddines s 710730280 Completed 202010/31/2020 Problem Code: R42; Problem Code Type: ICD-10; Not Available [facility] 3 04:10:14 Atrophic vaginiti s 91036459 Active 2020 [facility] 4 12:37:19 Urinary tract infectio us disease 07459139 Completed 202003/03/2021 Problem Code: N39.0; Problem Code Type: ICD-10; Not Available [facility] 3 04:10:14 Disorder of hematopo ietic structur e 502564481 Completed 202105/13/2023 Problem Code: D75.89; Problem Code Type: ICD-10; MD Livan [address], [place], [address] [facility] 4 13:45:04 Tension- type headache 065566969 Completed 202105/13/2023 Problem Code: G44.209; Problem Code Type: ICD-10; AYSHA BARILLAS MD [address], [place], [address] , [facility] 4 13:45:04 Acute conjunct ivitis of left eye 30410144817 9105 Completed 202112/19/2021 12/13/19 22 - Comments only - Nat Bryant M.D. - Likely bacteria l. Rx sent for e-mycin ointment . Call for reevalua tion if worsenin g, or no better w/in 48 hours. Problem Code: H10.32; Problem Code Type: ICD-10; Not Available [facility] 3 04:10:15 Cerebrov ascular disease 58427745 Active 2021 [facility] 4 12:37:49 Urinary tract infectio us disease 54145857 Completed 202208/28/2022 Problem Code: N39.0; Problem Code Type: ICD-10; Not Available [facility] 3 04:10:15 Pneumoni a 097439953 Completed 202211/08/2022 10/30/19 23 - Improved - Aysha Barillas MD - But with persiste nt evidence of congesti on in right lung. Advised chest x-ray in a couple of weeks to evaluate for any persiste nt abnormal ities requirin g further follow-u p. She has not had imaging yet with this infectio n. 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 2022 [facility] 4 12:37:33 Candidia sis of skin 44673972 Completed 201810/23/2022 Problem Code: B37.2; Problem Code Type: ICD-10; Not Available [facility] 3 04:10:16 Acute atopic conjunct ivitis 40971300 Completed 201804/21/2019 Problem Code: H10.10; Problem Code Type: ICD-10; Not Available [facility] 3 04:10:16 Constipa tion 23485505 Completed 201301/02/2023 Problem Code: K59.00; Problem Code Type: ICD-10; Not Available [facility] 3 04:10:16 Cough 36704348 Completed 202201/02/2023 Problem Code: R05.8; Problem Code Type: ICD-10; Not Available [facility] 3 04:10:16 Hyperten sive disorder 26993199 Completed 201301/02/2023 Not Available [facility] 3 04:10:17 Neoplasm of urinary bladder 016701978 Completed 201301/02/2023 Problem Code: D49.4; Problem Code Type: ICD-10; Not Available [facility] 3 04:10:17 Enthesop athy 43903457 Completed 201812/26/2020 Problem Code: M77.9; Problem Code Type: ICD-10; Not Available [facility] 3 04:10:17 Hypercal cemia 60440721 Completed 201401/02/2023 Not Available [facility] 3 04:10:18 Lung field abnormal 639292074 Completed 201607/29/2017 Problem Code: R91.8; Problem Code Type: ICD-10; Not Available [facility] 3 04:10:18 Insomnia 460783647 Completed 201906/06/2021 Problem Code: F51.09; Problem Code Type: ICD-10; Not Available [facility] 3 04:10:18 Disorder of lung 15038135 Completed 201710/23/2022 Problem Code: J98.4; Problem Code Type: ICD-10; Not Available [facility] 3 04:10:18 Type 2 diabetes mellitus without complica tion 091145417 Completed 201301/02/2023 Problem Code: E11.9; Problem Code Type: ICD-10; Not Available [facility] 3 04:10:19 Pain of left shoulder joint 12197346499 628210 Completed 201406/06/2021 Problem Code: M25.512; Problem Code Type: ICD-10; Not Available [facility] 3 04:10:19 Screenin g for osteopor osis Completed 201602/11/2017 Problem Code: Z13.820; Problem Code Type: ICD-10; Not Available [facility] 3 04:10:19 Inflamed seborrhe ic keratosi s 197162349 Completed 201910/23/2022 Problem Code: L82.0; Problem Code Type: ICD-10; Not Available [facility] 3 04:10:20 Disorder of brain [id number] Completed 202103/05/2022 Problem Code: G93.40; Problem Code Type: ICD-10; Not Available [facility] 3 04:10:20 Other idiopath ic peripher al neuropat hy NOS Completed 201301/02/2023 Not Available [facility] 3 04:10:20 Obesity [id number] Completed 201301/02/2023 Not Available [facility] 3 04:10:20 Fatigue [id number] Completed 201810/27/2018 Problem Code: R53.83; Problem Code Type: ICD-10; Not Available [facility] 3 04:10:21 Genitour inary symptoms [id number] Completed 201904/04/2020 Problem Code: R39.9; Problem Code Type: ICD-10; Not Available [facility] 3 04:10:21 Benign paroxysm al position al vertigo [id number] Completed 202001/02/2023 Problem Code: H81.10; Problem Code Type: ICD-10; Not Available [facility] 3 04:10:22 Disorder of skin and/or subcutan eous tissue [id number] Completed 201904/04/2020 Problem Code: L98.9; Problem Code Type: ICD-10; Not Available [facility] 3 04:10:22 Osteophy te of bone [id number] 9100 Completed 201906/28/2020 Problem Code: M25.776; Problem Code Type: ICD-10; Not Available [facility] 3 04:10:22 Gastric ulcer 147451927 Completed 201501/02/2023 Problem Code: K25.9; Problem Code Type: ICD-10; Not Available [facility] 3 04:10:22 Right side sciatica [id number] 9101 Completed 201804/21/2019 Problem Code: M54.31; Problem Code Type: ICD-10; Not Available [facility] 3 04:10:23 Candidia sis [id number] Completed 201308/22/2015 Problem Code: B37.9; Problem Code Type: ICD-10; Not Available [facility] 3 04:10:23 Steatosi s of liver 287642544 Completed 201302/10/2016 Problem Code: K76.0; Problem Code Type: ICD-10; Not Available [facility] 3 04:10:23 Cough 29348056 Completed 201912/26/2020 Problem Code: R05; Problem Code Type: ICD-10; Not Available [facility] 3 04:10:23 Xerostom ia [id number] Completed 202006/06/2021 Problem Code: R68.2; Problem Code Type: ICD-10; Gail rodriguez [facility] 4 12:49:03 Candidal vulvovag initis 97289909 Completed 201301/02/2023 Problem Code: 112.1; Problem Code Type: ICD-9; Not Available [facility] 3 04:10:25 Intestin al disaccha ridase deficien cy 93874215 Completed 201301/02/2023 Problem Code: 271.3; Problem Code Type: ICD-9; Not Available [facility] 04:10:25 Acute bronchit is 83662626 Completed 201912/26/2020 Problem Code: J20.9; Problem Code Type: ICD-10; Not Available [facility] 3 04:10:26 Peripher al nerve disease 891869976 Completed 201301/02/2023 Not Available [facility] 04:10:26 Acute upper respirat ory infectio n [id number] Completed 202205/13/2023 Problem Code: J06.9; Problem Code Type: ICD-10; MD Livan RODRIG[address]Z Dr, [facility] [address] , [facility] 4 13:45:04 Diastoli c heart failure 224183825 Active 2022 echo 03/[address], [facility] [address] , [facility] 3 11:17:46 Chest pain 57959571 Completed 202205/13/2023 Problem Code: R07.89; Problem Code Type: ICD-10; MD Livan RODR[address]UE[address] Dr, [facility] [address] , [facility] 4 13:45:03 Aortic stenosis , non-rheu matic 179139438 Active 2022 mild 03/2023 echo MD Livan [address], [facility] [address] , [facility] 4 06:52:21 Senile hyperker atosis 125032177 Completed 202205/13/2023 Problem Code: L82.1; Problem Code Type: ICD-10; MD Livan RODRIGUEZ Dr, [facility] [address] , [facility] 4 13:45:03 Melanocy tic nevus 700742054 Completed 202205/13/2023 Problem Code: D22.9; Problem Code Type: ICD-10; MD Livan RODRIGUEZ Dr, [address] 4 13:45:04 Incoordi nation [id number] Completed 202205/13/2023 01/31/20 23 - Comments only - Aysha Barillas MD - neuro exam not c/w CVA; will eval further at next visit. Problem Code: R27.9; Problem Code Type: ICD-10; MD Livan RODRIGUEZ Dr, [address] 4 13:45:03 Dyspnea 291795240 Completed 202205/13/2023 Problem Code: R06.09; Problem Code Type: ICD-10; MD Livan RODRIGUEZ Dr, [address] 4 13:45:03 Chronic diarrhea 991843053 Active 2023 Gail Lavern null, [facility] 12:37:57 Drug-ind uced xerostom ia 532156282 Active [address], [address] 4 13:38:38 Microalb uminuric diabetic nephropa thy 451026867 Active 2023 Gail Lavern null, [facility] 4 12:45:11 Dyspnea on exertion 87965782 Active 2023 Gail Lavern null, [facility] 12:37:57 Angular cheiliti s 132064525 Active 2023 Gail Puckett null, [facility] 4 12:36:56 Xerostom ia 50413750 Active 2023 Gail Puckett [facility], [facility] 4 12:49:03 History of adenomat ous polyp of colon 726699806 Active 2020 Gail Puckett michael, [facility] 12:43:44 Sialoade nitis 95537983 Completed 202308/09/[address], [facility] [address] , [facility] 16:48:36 Low back pain 394148421 Active 2023 Problem Code: M54.5; Problem Code Type: ICD-10; INDIRA YEN Dr, [facility] [address] , [facility] 14:31:55 Chest pain on exertion 60528340 Active [address], [place], [address] , [facility] 12:24:41 Always hungry 264001640 Active [address], [facility] [address] , [facility] 16:38:32 Altered bowel function 59357418 Active [address], [place], [address] , [facility] 4 16:38:44 Atypical chest pain 630552260 Active 2023 DORIS JONES MA null, [facility] 07:31:04 Acquired thromboc ytopenia 12769942 Active [address], [address] 4 09:56:08 Actinic keratosi s 689901746 Active [address], [address] 4 13:34:57 Nodule of lung 507809270 Active 2023 probable lipoma by PET. (benign) MD Livan RODRIGUEZ Dr, [address] 4 06:49:28 Minimal cognitiv e impairme nt 267352170 Active [address], [address] 4 15:05:52 New daily persiste nt headache 84200128870 9105 Active [address], [address] 4 16:29:33 Lichen sclerosu s of vulva 909213348 Active [address], [address] 4 15:22:25 Milia 956655058 Active [address], [address] 4 15:51:39 Obstruct keshia sleep apnea syndrome 09696565 Active 2023 DORIS JONES MA null, [facility] 4 09:39:29 Atherosc lerosis Active 2023 DORIS JONES MA null, [facility] 4 09:39:44 Cirrhosi s - non-alco holic 911163701 Active 2023 with esoph varices and low PLT but no ascites, jaundice or sx. MD Livan RODRIGUEZ Dr, [address] 4 06:56:02 Vulvitis 67440538 Active [address], [address] 4 13:20:01 Thromboc ytopenic disorder 493047300 Active [address], [address] 4 13:23:28 Decompen sated cirrhosi s of liver 874487108 Active 2023 MAHENDRA GUZMAN [facility] [address], [address] 14:23:47 Notes:Some problems listed i n Document: #[id number] could not be added to this patient's chart. Please review this document and add these problems to the patient's chart manually as needed. Problem Notes None recorded. Procedures Surgical History Date Name Laterality Status Provider Name and Address Organization Details Recorded Time 4 Cryosurgery Warts/Skin Tags completed MD Livan RODRIGUEZ Dr, [facility] [address], [facility] 10/18/2023 15:47:48 Cryosurgery Warts/Skin Tags completed MD Livan RODRIGUEZ Dr, [facility] [id number] [place] [address] 10/07/2023 13:34:27 Imaging Results None recorded. Procedure Notes None recorded. Medical Equipment None Reported. Allergies Allergen ID Allergen Name Allergen Category Reaction Reaction Severity Criticality Documentation Date Start Date Code Code System Note Provider Name and Address Organization Details Recorded Time 60545 erythromy laura medicatio n other moderate Not available 02/15/20232013 4053 RxNorm stoma ch pain [facility] 4 12:53:11 03526 Bactrim medicatio n itching moderate Not available 08/01/20232013 25012 9 RxNorm itchy skin [facility] 4 12:51:33 48757 codeine medicatio n itching moderate Not available 08/01/20232013 2670 RxNorm itchy , paran oid [facility] 4 12:52:07 38355 Demerol medicatio n other moderate Not available 08/01/20232013 09211 1 RxNorm can' t sleep [facility] 12:52:55 05098 simvastat in medicatio n nausea moderate Not available 08/01/20232013 53165 RxNorm (ALLS TATIN S) [facility] 12:53:40 70881 Trulicity medicatio n vomiting moderate low 09/25/2023 43837 96 RxNorm AYSHA BARILLAS MD [address], [place], [address] [place] [address] 4 12:57:22 Medications Name Sig Start Date Stop Date Status Note LastModified by Organization Details LastModified Time clotrimaz ole 10 mg mark Dissolve 1 lozenge in mouth three times a day for 5 days 06/25 completed Not Available Not Available Not Available nystatin 100,000 unit/mL oral suspensio n SHAKE LIQUID AND TAKE 5 ML BY MOUTH FOUR TIMES DAILY FOR 7 DAYS 08/06 completed Not Available Not Available Not Available Colace 100 mg capsule 1 qd 03/23 completed Not Available Not Available Not Available carvedilo l 6.25 mg tablet Take 1 tablet twice a day by oral route. active Not Available Not Available No t Available gabapenti n 600 mg tablet TAKE 1 TABLET BY MOUTH TWICE DAILY active Not Available Not Available No t Available doxycycli ne hyclate 100 mg capsule Take 1 capsule by mouth twice a day Please be cautious with your skin while in the sun as this medicati on does cause sun sensitiv ity. 10/25 completed Not Available Not Available Not Available atorvasta tin 20 mg tablet TAKE 1 TABLET BY MOUTH AT NIGHT active Not Available Not Available No t Available Neurontin 300 mg capsule 2tab bid may take one mid day prn 2014 active Not Available Not Available Not Avai lable Zestoreti c 10 mg-12.5 mg tablet Take 1 tablet by mouth once a day 10/23 completed Not Available Not Available Not Available ciproflox acin 750 mg tablet Take 1 tab by mouth twice daily for 7 days 02/04 completed Not Available Not Available Not Available trazodone 50 mg tablet TAKE 1-2 TABLETs BY MOUTH EVERY DAY active Not Available Not Available No t Available azithromy laura 250 mg tablet Take 2 by mouth now, then take 1 by mouth daily x 4 days 02/09 completed Not Available Not Available Not Available amitripty line 75 mg tablet Take 1 tablet by mouth every night 2020 active Not Available Not Available Not Avai lable fluconazo le 150 mg tablet TAKE 1 TABLET BY MOUTH ONCE 05/13 completed Not Available Not Available Not Available Fiorinal 50 mg-325 mg-40 mg capsule 2 tab q 6 hrs prn 03/30 completed Not Available Not Available Not Available metoprolo l succinate ER 50 mg tablet,ex tended release 24 hr TAKE 1 TABLET BY MOUTH DAILY 12/01 completed Not Available Not Available Not Available Nystop 100,000 unit/gram topical powder apply topicall y to affected area BID x 10 days 01/26 completed Not Available Not Available Not Available glipizide ER 10 mg tablet, extended release 24 hr TAKE 1 TABLET BY MOUTH DAILY 05/03 completed Not Available Not Available Not Available Surgilube topical gel 1 tube as needed 10/23 completed Not Available Not Available Not Available lisinopri l 20 mg tablet TAKE 1 TABLET DAILY 05/16 completed Not Available Not Available Not Available cephalexi n 250 mg tablet Take 1 tab by mouth two times daily for five days then one tab daily 05/04 completed Not Available Not Available Not Available isosorbid e mononitra te ER 30 mg tablet,ex tended release 24 hr Take 1 tablet twice a day by oral route. active Not Available Not Available No t Available clonazepa m 0.5 mg tablet Take 1 tablet by mouth every night 10/23 completed Not Available Not Available Not Available Pyridium 100 mg tablet Take 1 tab by mouth three times daily as needed x 2 days 09/28 completed Not Available Not Available Not Available glipizide ER 5 mg tablet, extended release 24 hr Take 1 tab by mouth daily 2018 active Not Available Not Available Not Avai lable clobetaso l 0.05 % topical cream APPLY A THIN LAYER TO THE AFFECTED AREA(S) BY TOPICAL ROUTE daily x 2 wks then 1-2x/wk 10/24 completed Not Available Not Available Not Available torsemide 10 mg tablet Take 1 tablet every day by oral route. 2023 active Not Available Not Available Not Avai lable Engerix-B (Hepatiti s B) Vaccine 20 mcg/mL intramusc ular syringe Give 1 month after Twinrix 12/28 completed Not Available Not Available Not Available omeprazol e 40 mg capsule,d elayed release Take 1 capsule by mouth once a day 11/30 completed GI Not Available Not Available Not Available amitripty line 50 mg tablet TAKE 1 TABLET BY MOUTH EVERY NIGHT 08/26 completed Not Available Not Available Not Available triamcino lone acetonide 0.1 % topical cream Apply 1 a small amount to affected area twice a day 08/28 completed Not Available Not Available Not Available Macrobid 100 mg capsule Take 1 capsule by mouth twice a day 02/28 completed Not Available Not Available Not Available pramipexo le 0.5 mg tablet Take 1 tablet every day by oral route in the evening, for restless leg syndrome . active Not Available Not Available No t Available omeprazol e 10 mg capsule,d elayed release once a day 12/[address] Wallis, [facility] [place] [place], after August 2022 OV Not Available Not Available Not Available gabapenti n 800 mg tablet Take 1 tablet by mouth three times a day 2019 active Not Available Not Available Not Avai lable OneTouch Ultra Test strips USE 1 STRIP VIA METER THREE TIMES A DAY DIRECTED active Not Available Not Available No t Available glipizide ER 2.5 mg tablet, extended release 24 hr Take 1 tab by mouth daily 2018 active Not Available Not Available Not Avai lable cephalexi n 500 mg capsule Take 1 capsule by mouth three times a day 11/07 completed Not Available Not Available Not Available erythromy laura 5 mg/gram (0.5 %) eye ointment Apply 1 a thin layer into left eye four times a day for 7 days 12/19 completed Not Available Not Available Not Available metformin 1,000 mg tablet Take 1 tablet by mouth twice a day active Not Available Not Available No t Available nystatin 100,000 unit/gram topical cream APPLY TOPICALL Y TO THE AFFECTED AREA TWICE DAILY 08/06 completed Not Available Not Available Not Available lisinopri l 10 mg tablet Take 1 tablet every day by oral route. 11/28 completed Not Available Not Available Not Available pramipexo le 0.125 mg tablet TAKE 3 TABLETS BY MOUTH AT NIGHT 10/17 completed Not Available Not Available Not Available nitroglyc albina 0.4 mg sublingua l tablet TAKE 1 TABLET BY MOUTH EVERY 5 MINUTES FOR CHEST PAIN FOR 3 DOSES IF DOES NOT RESOLVED WITH REST. CALL 911 IF PAIN PERSISTS active Not Available Not Available No t Available lisinopri l 30 mg tablet Take 1 tablet by mouth once a day 10/29 completed Not Available Not Available Not Available cephalexi n 500 mg tablet Take 1 tablet by mouth three times a day 03/03 completed Not Available Not Available Not Available metoprolo l succinate ER 25 mg tablet,ex tended release 24 hr TAKE 1 AND 1/2 TABLETS BY MOUTH DAILY 10/06 completed Not Available Not Available Not Available ibuprofen 600 mg tablet Take 1 tab by mouth three times daily as needed 05/28 completed Not Available Not Available Not Available Pepcid 20 mg tablet Take 1 tablet by mouth twice a day 10/23 completed Not Available Not Available Not Available cefuroxim e axetil 500 mg tablet Take 1 tablet by mouth twice a day 10/25 completed Not Available Not Available Not Available estradiol 0.01% (0.1 mg/gram) vaginal cream Insert 1 applicat orful into vagina twice a week as directed 08/06 completed Not Available Not Available Not Available albuterol sulfate HFA 90 mcg/actua tion aerosol inhaler Inhale 2 puff using inhaler every four to six hours as needed active Not Available Not Available No t Available Cipro 250 mg tablet take 1 tab PO BID X5 days 11/22 completed Not Available Not Available Not Available Terazol 7 0.4 % vaginal cream one applicat or daily at HS for 7 days 08/21 completed Not Available Not Available Not Available cefdinir 300 mg capsule Take 1 capsule by mouth twice a day 11/09 completed Not Available Not Available Not Available metformin ER 500 mg tablet,ex tended release 24 hr Take 4 tabs by mouth daily 07/16 completed Not Available Not Available Not Available clotrimaz ole 1 % topical cream APPLY ONE APPLICAT ION TOPICALL Y TO AFFECTED AREA TWO TIMES A DAY active Not Available Not Available No t Available loratadin e 10 mg tablet Take 1 tab by mouth daily 05/23 completed Not Available Not Available Not Available Benadryl 25 mg capsule Take 1 capsule by mouth every six hours 10/29 completed Not Available Not Available Not Available Adult Low Dose Aspirin 81 mg tablet,de layed release Take 1 tablet every day by oral route. active Not Available Not Available No t Available Fish Oil 1,000 mg capsule 3 caps daily 2013 active Not Available Not Available Not Avai lable metformin ER 1,000 mg tablet,ex tended release 24hr (osmotic) 2 tabs po daily 07/16 completed Not Available Not Available Not Available Tricor 48 mg tablet 1TAB daily 03/08 completed Not Available Not Available Not Available Tricor 145 mg tablet 08/06 completed Not Available Not Available Not Available lactulose 10 gram/15 mL oral solution 15 ml BID 04/27 completed per GI Not Available Not Available Not Available Byetta 10 mcg/dose( 250 mcg/mL)2. 4 mL subcutane ous pen injector inject 10mcg SQ BID 12/28 completed Not Available Not Available Not Available aspirin 81 mg daily 11/28 completed Not Available Not Available Not Available Multivita mins daily 2013 active Not Available Not Available Not Avai lable red yeast rice 600 mg capsule Take 1 capsule by mouth twice a day 10/23 completed Not Available Not Available Not Available Fish Oil 340 mg-1,000 mg capsule 3 capsule once a day 2013 active Not Available Not Available Not Avai lable Januvia 50 mg tablet Take 1 tablet every day by oral route. 2023 active Not Available Not Available Not Avai lable Januvia 100 mg tablet Take 1 tab by mouth daily 07/28 completed Not Available Not Available Not Available Multivita l 0.4 mg-162 mg-18 mg tablet 1 tab qd 2013 active Not Available Not Available Not Avai lable Multivita l 1 tablet once a day 2013 active Not Available Not Available Not Avai lable Twinrix (PF) 720 LILO unit-20 mcg/mL intramusc ular syringe give 1 now, 1 in 6 mo 12/28 completed Not Available Not Available Not Available Vagifem 10 mcg vaginal tablet Insert 1 tablet into vagina twice a week as directed 11/02 completed Not Available Not Available Not Available BD Ultra-Fin e Nataliia Pen Needle 32 gauge x Use 1 needle subcutan eously twice a day active Not Available Not Available No t Available Probiotic 10 billion cell capsule 3 tablet once a day 03/18 completed Not Available Not Available Not Available Probiotic 3 tabs daily 2013 active Not Available Not Available Not Avai lable Jessica Allergy 180 mg tablet 1 tab daily 08/02 completed Not Available Not Available Not Available red yeast rice 600 mg tablet 2CAP daily 2013 active Not Available Not Available Not Avai lable Victoza 2-Jl 0.6 mg/0.1 mL (18 mg/3 mL) subcutane ous pen injector 0.6 mg SC qd x2 wk, then 1.2 mg SC qdx4 weeks, then may incr. to 1.8 mg SC qd 2023 active Not Available Not Available Not Avai lable Fioricet 50 mg-300 mg-40 mg capsule take one tab po BID prn HOYOS 08/21 completed Not Available Not Available Not Available Levemir FlexTouch U-100 Insulin 100 unit/mL (3 mL) subcutane ous pen inject 10 units sub Q at bedtime Increase dose by 2 units every day until am BS 130 or less. Do not exceed 80 Units. 05/12 completed Not Available Not Available Not Available Biotene Dry Mouth Oral Rinse mouthwash USE BY MOUTH DIRECTED THREE TIMES DAILY OR NEEDED FOR DRY MOUTH active Not Available Not Available No t Available Jardiance 10 mg tablet TAKE 1 TABLET BY MOUTH EVERY DAY 10/06 completed Not Available Not Available Not Available Jardiance 25 mg tablet Take 1 tablet every day by oral route. 11/07 completed vulvitis Not Available Not Available Not Available Trulicity 1.5 mg/0.5 mL subcutane ous pen injector Inject 1 1/2 mg subcutan eously once a week 08/22 completed Not Available Not Available Not Available Flonase Allergy Relief 50 mcg/actua tion nasal spray,moraima pension Trevor 1 spray into both nostrils once a day as 08/08 completed Not Available Not Available Not Available Allergy unknown allergy pill prn active Not Available Not Available No t Available Shingrix (PF) 50 mcg/0.5 mL intramusc ular suspensio n, kit Inject 1 ml intramus cularly single dose dose # 2 in 2-6 months 08/25 completed Not Available Not Available Not Available Ozempic 0.25 mg or 0.5 mg (2 mg/1.5 mL) subcutane ous pen injector 0.25 mg once weekly for 4 weeks then 0.5 mg weekly for 4 weeks, then 1 mg weekly 11/28 completed Not Available Not Available Not Available metoprolo l succinate ER 50 mg capsule sprinkle, ext. release 24 hr Take 1 capsule every day by oral route. 10/06 completed Not Available Not Available Not Available OneTouch Ultra2 Meter Use 1 unit as directed three times a day to check blood glucose active Not Available Not Available No t Available OneTouch Delica Plus Lancet 30 gauge USE 1 LANCET THREE TIMES A DAY DIRECTED active Not Available Not Available No t Available Ozempic 1 mg/dose (4 mg/3 mL) subcutane ous pen injector Inject 1 mg every week by subcutan eous route, for weight loss. 11/28 completed Not Available Not Available Not Available AZO D-Mannose 500 mg capsule 08/08 completed from [facility] Not Available Not Available Not Available Ozempic 0.25 mg or 0.5 mg (2 mg/3 mL) subcutane ous pen injector 11/28 completed Not Available Not Available Not Available Vitals Date Recorded Body height Body temperature Oxygen saturation Oxygen saturation in Arterial blood by Pulse oximetry Heart rate Systolic blood pressure Diastolic blood pressure Provider Name and Address Organization Details Last Updated DateTime 4 154.94 cm 97.2 [degF] 96 % 96 % 84 /min 92 mm[Hg] 58 mm[Hg] ABDIRAHMAN MURRY RN [facility] 4 10:43:51 Social History Question Answer Notes LastModified by Organizat ion Details LastModified Time Tobacco Smoking Status Never Smoker GIOVANNA ASIF, [facility] 03/18/2023 15:57:23 Would You Say That, In General, Your Health Is Good [email or web address] Information not available 08/09/2023 How Often Does Anyone, Including Family, Physically Hurt You? Never [email or web address] Information not available 08/09/2023 How Often Does Anyone, Including Family, Insult Or Talk Down To You? Rarely [email or web address] Information no t available 08/09/2023 How Often Does Anyone, Including Family, Threaten You With Harm? Never Information not available 08/09/2023 How Often Does Anyone, Including Family, Scream Or Curse At You? Never [email or web address] Information not available 08/09/2023 Within The Past 12 Months, You Worried That Your Food Would Run Out Before You Got Money To Buy More. Never True [email or web address] Information n ot available 08/09/2023 Within The Past 12 Months, The Food You Bought Just Didn't Last And You Didn't Have Money To Get More. Never True [email or web address] Information not available 08/09/2023 How Hard Is It For You To Pay For The Very Basics Like Food, Housing, Medical Care, And Heating? Would You Say It Is: Somewhat Hard [email or web address] Information not available 08/09/2023 In The Past 12 Months, Has Lack Of Reliable Transportation Kept You From Medical Appointments, Meetings, Work Or From Getting Things Needed For Daily Living? No Information not available 08/09/2023 What Is Your Housing Situation Today? I Have Housing. Information not available 08/09/2023 How Often In The Past Year Have You Used Marijuana (including Smoking, Vaping, Dabbing, Or Edibles)? Never [email or web address] Information not available 08/09/2023 How Often In The Past Year Have You Used Prescription Medications That Were Not Prescribed To You? Never [email or web address] Information not available 08/09/2023 How Often In The Past Year Have You Taken Your Own Prescription Medication More Than The Way It Was Prescribed Or For Different Reasons Than Its Intended Purpose? Never Information not available 08/09/2023 How Often In The Past Year Have You Used Other Drugs (for Example, Heroin, Cocaine, Meth, Salvia, Inhalants)? Never [email or web address] Information not available 08/09/2023 Have You Ever Used IV Drugs? No [email or web address] Information not available 08/09/2023 Date Of Most Recent SBINS 08/09/2023 [email or web address] Information not available 08/09/2023 What Was The Date Of Your Most Recent Tobacco Screening? 10/18/2023 Information n ot available 10/18/2023 Has Tobacco Cessation Counseling Been Provided? No [email or web address] Information not available 10/25/2023 Do You Or Have You Ever Used Any Other Forms Of Tobacco Or Nicotine? No [email or web address] Information not available 03/18/2023 Sex: Female Functional Status None recorded. Mental Status None recorded. Family History Relationship Description Onset Age of this Age Resolved Age Notes Mother Family history of ac sánchez medical disorder Notes:*Problem: Mother: d. 6 7 , cirrhosis, non ETOH Father: d. [place], acute hepatitis Sisters: x1, cirrhosis, non ETOH, x2 DM2, Brothers: x1 prostate cancer, bladder cancer, x2 DM2, x3 DM2 Children: x4, obesity, ovarian cancer (?) Family History of: Hypertension: Yes Hyperlipidemia: Yes Coronary heart disease: No Diabetes mellitus: Yes Medical History No medical history recorded. Gynecological HistoryNo gynecological history recorded. Obstetrics History GPAL:G 0 P 0 0 0 0 Immunizations Vaccine Type Date Status Provider Name and Address Organization Details Recorded Time Td (adult), 2 Lf tetanus toxoid, preservative free, adsorbed 12/28/2016 completed Not Available [facility] 02/15/2023 05:29:32 Hep A-Hep B 05/11/2016 completed Not Available [facility] 02/15/2023 05:29:32 Hep A-Hep B 02/24/2016 completed Not Available [facility] 02/15/2023 05:29:32 Tdap 07/01/2006 completed Not Available [facility] 05:29:32 Pneumococcal conjugate PCV 13 05/11/2016 completed Not Available [facility] 02/15/2023 05:29:32 Td(adult) unspecified formulation 02/07/1996 completed Not Available [facility] 02/15/2023 05:29:32 Influenza, split virus, trivalent, preservative 12/30/2015 completed Not Available [facility] 02/15/2023 05:29:32 Influenza, split virus, trivalent, preservative 02/21/2015 completed Not Available [facility] 02/15/2023 05:29:32 Influenza, split virus, quadrivalent, PF 01/03/2012 completed Not Available [facility] 02/15/2023 05:29:33 Influenza, split virus, quadrivalent, PF 01/19/2013 completed Not Available [facility] 02/15/2023 05:29:33 Influenza, split virus, quadrivalent, preservative 12/28/2016 completed Not Available [facility] 02/15/2023 05:29:33 Influenza, split virus, quadrivalent, preservative 01/28/2018 completed Not Available [facility] 02/15/2023 05:29:33 Influenza, high-dose, quadrivalent, PF 12/26/2020 completed Not Available [facility] 02/15/2023 05:29:33 COVID-19, mRNA, LNP-S, PF, 100 mcg/0.5mL dose or 50 mcg/0.25mL dose 05/25/2020 completed Not Available [facility] 02/15/2023 05:29:33 COVID-19, mRNA, LNP-S, PF, 100 mcg/0.5mL dose or 50 mcg/0.25mL dose 2020 completed Not Available [facility] 02/15/2023 05:29:33 COVID-19, mRNA, LNP-S, PF, 100 mcg/0.5mL dose or 50 mcg/0.25mL dose 09/05/2021 completed Not Available [facility] 02/15/2023 05:29:33 SARS-COV-2 (COVID-19) vaccine, UNSPECIFIED 02/27/2021 completed Not Available [facility] 02/15/2023 05:29:34 COVID-19, mRNA, LNP-S, bivalent, PF, 30 mcg/0.3 mL dose 09/19/2022 completed Not Available [facility] 02/16/20 05:29:34 COVID-19, mRNA, LNP-S, bivalent, PF, 30 mcg/0.3 mL dose 03/05/2022 completed Not Available [facility] 02/16/20 05:29:34 pneumococcal polysaccharide PPV23 07/01/2006 completed Not Available [facility] 2022 05:29:34 pneumococcal polysaccharide PPV23 02/21/2015 completed Not Available [facility] 2022 05:29:34 pneumococcal polysaccharide PPV23 03/11/2001 completed Not Available [facility] 2022 05:29:34 Hep B, adult 09/28/2016 completed Not Available [facility] 02/15/2023 05:29:34 influenza, unspecified formulation 01/12/2008 completed Not Available [facility] 02/15/2023 05:29:34 influenza, unspecified formulation 02/01/2014 completed Not Available [facility] 02/15/2023 05:29:34 influenza, unspecified formulation 02/12/2019 completed Not Available [facility] 02/15/2023 05:29:35 Influenza, high-dose, quadrivalent, PF 01/24/2023 completed Not Available [facility] 04/19/2023 05:31:38 COVID-19, mRNA, LNP-S, PF, mayito-sucrose, 30 mcg/0.3 mL 01/30/2023 completed Not Available [facility] 04/19/2023 05:31:38 Past Encounters Encounter ID Performer Location Encounter Start Date Encounter Closed Date Diagnosis/Indication Diagnosis SNOMED-CT Code [id number] AYSHA BARILLAS MD [address] [address] 10/07/2023 12:38:43 10/07/2023 13:32:27 Actinic keratosis 086402815 Acquired thrombocytopenia 34389134 Nodule of lung 122997457 Chest pain on exertion 36796432 Minimal co gnitive impairment 524801690 New daily persistent headache [id number] AYSHA BARILLAS MD [address] [address] 10/18/2023 14:36:15 10/18/2023 15:35:43 Restless legs 68993986 Lichen scl erosus of vulva 614150836 Milia 590602672 Actinic keratosis 089104 010 [id number] AYSHA BARILLAS MD [address] [address] 10/25/2023 10:28:44 10/25/2023 11:17:17 Lichen sclerosus of vulva 515657015 Eruption of vulva 124500 006 Health Concerns Section Related Observation LastModified by Organization Detai ls LastModified Time None Recorded Concern Status LastModified by Organization Details LastModified Time None Recorded Payers Encounter Date Sequence Insurance Name Policy Number Policy [place] Covered Member ID Lucas Member ID Guarantor Name 10/25/2023 1 [id number]/A [place]AGE - [place]PO) [id number] Milka Corbett [id number] Milka Turner [place] Notes Date Note Type Note Provider Name and Address Organization Details Recorded Time 10/25/2023 text/html HPI Notes: Saw NELLY a week ago. She feels that her vulva rash is worse. She can't use soap - is just using warm water. She looked at the rash - is bright red with bumps. Is painful, and itchy. Last week was Rx clobetasol. LISA BABB, [employer]- [address], [place], [address], [facility], [facility]. 10/25/2023 17:11:33 OBGyn Episode No OBEpisode recorded.
--- OUTSIDE RECORDS SUMMARY | 2023-12-02 18:32 | XMS_ITS | Data Portability ---
Author Organization [facility], [facility] Address [place] [address] Care Team Providers Care Neurological Surgeon Name Role Phone CRYSTAL ORTEGA Guzzler Builder LANI WALLIS Gullet Slitter Assessment Encounter Date Assessment Date Assessment LastModified by Organization Details LastModified Time 09/24/2023 09/24/2023 The total time devoted to today's encounter, including both the soue-rp-grvu time with the patient and/or family/caregiver and xrg-igon-bs-face time I personally spent is 45 minutes. Not available 09/24/2023 16:48:28 10/07/2023 10/07/2023 Med review: Patient may be taking metoprolol still in addition to carvedilol, was advised to stop the former. She was unsure which Jardiance dose she was taking, I advised she take 25 mg and will discontinue the 10 mg from her med list. The total time devoted to today's encounter, including both the hfke-sy-qnpj time with the patient and/or family/caregiver and mqr-zyiy-wc-face time I personally spent is 50 minutes. [email or web address] Not available 10/07/2023 16:32:02 10/18/2023 10/18/2023 She has upcoming PET scan for eval of enlarging pulmonary nodule and has been referred to hematology for evaluation of chronic thrombocytopenia in light of possible need for dual platelet agent if cardiac cath is positive/stent(s) placed. [email or web address] Not available 10/18/2023 15:53:13 Plan of Treatment Reminders Order Date Submit [...] vaginal - vaginal 2023 024 [email or web address] [facility] (Registration ), [address] [place] [address] [place], [address], 11/01/2023 06:49:18 hemoglobi n A1C, fingersti ck 2023 024 [email or web address] [facility], [address] [facility], [place], [address], 11/08/2023 16:08:27 Referral None recorded. Procedures None recorded. Surgeries None recorded. Imaging PET-CT, skull base to mid-thigh scan - LLL nodule has doubled in size, now 2cm diameter. (images done at [facility]) eval for malignanc y. 2023 024 [facility]ray, [facility] , [place], [id number], 10/24/2023 16:09:17 Medication Orders pramipexo le 0.5 mg tablet 2023 024 ERROL [facility], [address], [address], [place], [place], [id number], 10/18/2023 15:21:45 clobetaso l 0.05 % topical cream 2023 024 ERROL [facility], [address], [address], [place], [place], [id number], 10/25/2023 10:39:05 Patient TargetsNo targets recorded. Patient InstructionsNo instructions recorded. Reason for Referral Physical Therapist Referral for Vertigo referral made at patient's request Referring Physician: Aysha Barillas, Family Medicine, Encounter Date: 08/20/2023 pt with compensated cirrhosi s with chronic thrombocytopenia, may need cardiac stent and cards (Dr. Ortega) concerned whether she could tolerate dual anti-PLT agents. Pls eval. Semi-urgent. Referring Physician: Aysha Barillas, Family Medicine, Encounter Date: 10/07/2023 Results Created Date Observation Date Name Description Value Unit Range Abnormal Flag Note LastModifiedBy Organization Detail LastModifiedTime 08/28/19 24 08/28/2023 CBC W/ DIFFE RENTI AL* WBC 4.62 TH/cm m 5.00 - 10.00 low Not Available [facility] (Lab) [address] [place] [address], [id number], 08/28/2023 14:13:25 08/28/19 24 08/28/2023 CBC W/ DIFFE RENTI AL* neut % 60.7 % 40.0 - 80.0 Not Available [facility] (Lab) [address] [place] [address], [id number], 08/28/2023 14:13:25 08/28/19 24 08/28/2023 CBC W/ DIFFE RENTI AL* lymph % 29.2 % 10.0 - 50.0 Not Available [facility] (Lab) [address] [place] [address], 60960, 08/28/2023 14:13:25 08/28/19 24 08/28/2023 CBC W/ DIFFE RENTI AL* mono % 8.2 % 2.0 - 12.0 Not Available [facility] (Lab) [address] [place] [address], [id number], 08/28/2023 14:13:25 08/28/19 24 08/28/2023 CBC W/ DIFFE RENTI AL* eos % 1.3 % 0.0 - 8.0 Not Available [facility] (Lab) [address] [place] [address], [id number], 08/28/2023 14:13:25 08/28/19 24 08/28/2023 CBC W/ DIFFE RENTI AL* baso % 0.4 % 0.0 - 3.0 Not Available [facility] (Lab) [address] [place] [address], [id number], 08/28/2023 14:13:25 08/28/19 24 08/28/2023 CBC W/ DIFFE RENTI AL* Ig % 0.2 % 0.0 - 1.1 Not Available [facility] (Lab) [address] [place] [address], [id number], 08/28/2023 14:13:25 08/28/19 24 08/28/2023 CBC W/ DIFFE RENTI AL* NRBC % 0.0 % 0.0 - 0.0 Not Available [facility] (Lab) [address] [place] [address], 15186, 08/28/2023 14:13:25 08/28/19 24 08/28/2023 CBC W/ DIFFE RENTI AL* neut abs count 2.8 TH/cm m 1.6 - 8.4 Not Available [facility] (Lab) [address] [place] [address], [id number], 08/28/2023 14:13:25 08/28/19 24 08/28/2023 CBC W/ DIFFE RENTI AL* lymph abs count 1.4 TH/cm m 1.5 - 4.0 low Not Available [facility] (Lab) [address] [place] [address], 63446, 08/28/2023 14:13:25 08/28/19 24 08/28/2023 CBC W/ DIFFE RENTI AL* mono abs count 0.4 TH/cm m 0.2 - 1.0 Not Available [facility] (Lab) [address] [place] [address], [id number], 08/28/2023 14:13:25 08/28/19 24 08/28/2023 CBC W/ DIFFE RENTI AL* eos abs count 0.1 TH/cm m 0.0 - 0.5 Not Available [facility] (Lab) [address] [place], [address], 08/28/2023 14:13:25 08/28/19 24 08/28/2023 CBC W/ DIFFE RENTI AL* baso abs count 0.0 TH/cm m 0.0 - 0.2 Not Available [facility] (Lab) [address] [place], [address], 08/28/2023 14:13:25 08/28/19 24 08/28/2023 CBC W/ DIFFE RENTI AL* Ig abs count 0.0 TH/cm m 0.0 - 0.1 Not Available [facility] (Lab) [address] [place] [address], 75070, 08/28/2023 14:13:25 08/28/19 24 08/28/2023 CBC W/ DIFFE RENTI AL* NRBC abs count 0.0 mil/c mm 0.0 - 0.0 Not Available [facility] (Lab) [address] [place] [address], 51345, 08/28/2023 14:13:25 08/28/19 24 08/28/2023 CBC W/ DIFFE RENTI AL* RBC 4.10 mil/c mm 3.90 - 5.40 Not Available [facility] (Lab) [address] [place] [address], 43688, 08/28/2023 14:13:25 08/28/19 24 08/28/2023 CBC W/ DIFFE RENTI AL* hemoglobin 12.5 gm/dL 12.0 - 16.0 Not Available [facility] (Lab) [address] [place] [address], [id number], 08/28/2023 14:13:25 08/28/19 24 08/28/2023 CBC W/ DIFFE RENTI AL* hematocrit 38 % 37 - 47 Not Available [facility] (Lab) [address] [place], [address], 08/28/2023 14:13:25 08/28/19 24 08/28/2023 CBC W/ DIFFE RENTI AL* MCV 93 fL 82 - 92 high Not Available [facility] (Lab) [address] [place] [address], [id number], 08/28/2023 14:13:25 08/28/19 24 08/28/2023 CBC W/ DIFFE RENTI AL* MCH 30.5 pg 27.0 - 31.0 Not Available [facility] (Lab) [address] [place] [address], 84706, 08/28/2023 14:13:25 08/28/19 24 08/28/2023 CBC W/ DIFFE RENTI AL* MCHC 32.6 % 32.0 - 36.0 Not Available [facility] (Lab) [address] [place] [address], [id number], 08/28/2023 14:13:25 08/28/19 24 08/28/2023 CBC W/ DIFFE RENTI AL* RDW-SD 46.1 fL 39.0 - 49.0 Not Available [facility] (Lab) [address] [place] [address], 84653, 08/28/2023 14:13:25 08/28/19 24 08/28/2023 CBC W/ DIFFE RENTI AL* platelet count 80 TH/cm m 150 - 450 low Not Available [facility] (Lab) [address] [place] [address], 37453, 08/28/2023 14:13:25 08/28/19 24 08/28/2023 BASIC METAB OLIC PANEL (BMP) glucose 117 mg/dL 70 - 116 high Not Available [facility] (Lab) [address] [place] [address], [id number], 08/28/2023 15:18:33 08/28/19 24 08/28/2023 BASIC METAB OLIC PANEL (BMP) BUN 23 mg/dL 6 - 25 Not Available [facility] (Lab) [address] [place] [address], 84963, 08/28/2023 15:18:33 08/28/19 24 08/28/2023 BASIC METAB OLIC PANEL (BMP) creatinine 0.78 mg/dL 0.51 - 0.95 Not Available [facility] (Lab) [address] [place], [address], 08/28/2023 15:18:33 08/28/19 24 08/28/2023 BASIC METAB OLIC PANEL (BMP) sodium serum 143 mmol/ L 136 - 145 Not Available [facility] (Lab) [address] [place] [address], 54070, 08/28/2023 15:18:33 08/28/19 24 08/28/2023 BASIC METAB OLIC PANEL (BMP) potassium serum 4.2 mmol/ L 3.4 - 5.2 Not Available [facility] (Lab) [address] [place] [address], 21029, 08/28/2023 15:18:33 08/28/19 24 08/28/2023 BASIC METAB OLIC PANEL (BMP) chloride serum 104 mmol/ L 96 - 110 Not Available [facility] (Lab) [address] [place] [address], 85932, 08/28/2023 15:18:33 08/28/19 24 08/28/2023 BASIC METAB OLIC PANEL (BMP) carbon dioxide (co2) 30 mmol/ L 22 - 34 Not Available [facility] (Lab) [address] [place] [address], 90989, 08/28/2023 15:18:33 08/28/19 24 08/28/2023 BASIC METAB OLIC PANEL (BMP) anion gap 9.4 mmol/ L Not Available [facility] (Lab) [address] [place] [address], 64905, 08/28/2023 15:18:33 08/28/19 24 08/28/2023 BASIC METAB OLIC PANEL (BMP) calcium serum 9.7 mg/dL 8.2 - 10.2 Not Available [facility] (Lab) [address] [place], [address], 08/28/2023 15:18:33 08/28/19 24 08/28/2023 BASIC METAB OLIC PANEL (BMP) age 83 years Not Available [facility] (Lab) [address] [place], [address], 08/28/2023 15:18:33 08/28/19 24 08/28/2023 BASIC METAB OLIC PANEL (BMP) eGFR (non-afr.hayde r.) 71 mL/mi n Not Available [facility] (Lab) [address] [place] [address], 64966, 08/28/2023 15:18:33 08/28/19 24 08/28/2023 BASIC METAB OLIC PANEL (BMP) eGFR (afr-angeline n) 86 mL/mi n eGFR <60 ml/mi n for >=3 month s is indic ative of chron ic kidne y The eGFR calcu lated using the MDRD Study equat ion is valid ated non hospi taliz ed patie nts 18 to 70 years of age and is not rep patie nts less than 18 years of age. Not Available [facility] (Lab) [address] [place] [address], [id number], 08/28/2023 15:18:33 08/28/19 24 08/28/2023 BNP (PRO- B NATRI URETI C PEPTI DE) nt-probnp 205.0 pg/mL 0.0 - 450 Optim al NT-pr oBNP Cut-p oints for Acute CHF Diagn osis On Rule in Rule out <50 years 450 pg/mL All ages 300 pg 50-75 years 900 pg/mL >75 years 1800 pg/mL Not Available [facility] (Lab) [address] [place] [address], 42730, 08/28/2023 15:18:35 08/28/19 24 08/28/2023 HEPAT IC FUNCT ION PANEL hepatic function panel HEPAT IC FUNCT ION PANEL Not Available [facility] (Lab) [address] [place] [address], [id number], 08/28/2023 15:18:36 08/28/19 24 08/28/2023 HEPAT IC FUNCT ION PANEL albumin 3.7 gm/dL 3.4 - 5.0 Not Available [facility] (Lab) [address] [place], [address], 08/28/2023 15:18:36 08/28/19 24 08/28/2023 HEPAT IC FUNCT ION PANEL total protein 7.3 gm/dL 6.0 - 8.0 Not Available [facility] (Lab) [address] [place] [address], 38019, 08/28/2023 15:18:36 08/28/19 24 08/28/2023 HEPAT IC FUNCT ION PANEL bilirubin total 0.5 mg/dL 0.0 - 1.3 Not Available [facility] (Lab) [address] [place] [address], 75674, 08/28/2023 15:18:36 08/28/19 24 08/28/2023 HEPAT IC FUNCT ION PANEL bilirubin direct 0.20 mg/dL 0.00 - 0.50 Not Available [facility] (Lab) [address] [place] [address], 39830, 08/28/2023 15:18:36 08/28/19 24 08/28/2023 HEPAT IC FUNCT ION PANEL SGOT (AST) 28 U/L 15 - 37 Not Available [facility] (Lab) [address] [place] [address], 75929, 08/28/2023 15:18:36 08/28/19 24 08/28/2023 HEPAT IC FUNCT ION PANEL SGPT (ALT) 44 U/L 12 - 78 Not Available [facility] (Lab) [address] [place] [address], 33731, 08/28/2023 15:18:36 08/28/19 24 08/28/2023 HEPAT IC FUNCT ION PANEL alk. phos. 110 U/L 46 - 116 Not Available [facility] (Lab) [address] [place] [address], 51066, 08/28/2023 15:18:36 08/28/19 24 08/28/2023 LIPID PANEL * fasting status: NON FASTIN G Not Available [facility] (Lab) [address] [place] [address], 43398, 08/28/2023 15:18:37 08/28/19 24 08/28/2023 LIPID PANEL * cholesterol 98 mg/dL 0 - 200 Not Available [facility] (Lab) [address] [place] [address], 38908, 08/28/2023 15:18:37 08/28/19 24 08/28/2023 LIPID PANEL * triglyceride s 155 mg/dL 57 - 256 Not Available [facility] (Lab) [address] [place] [address], 88369, 08/28/2023 15:18:37 08/28/19 24 08/28/2023 LIPID PANEL * HDL 41 mg/dL 38 - 92 Not Available [facility] (Lab) [address] [place] [address], 22902, 08/28/2023 15:18:37 08/28/19 24 08/28/2023 LIPID PANEL * non-HDL-C 57 mg/dL 0 - 160 Not Available [facility] (Lab) [address] [place] [address], 54924, 08/28/2023 15:18:37 08/28/19 24 08/28/2023 LIPID PANEL * LDL (calc) 26 mg/dL 0 - 130 Not Available [facility] (Lab) [address] [place] [address] [place], [address], 08/28/2023 15:18:37 08/28/19 24 08/28/2023 LIPID PANEL * % HDL 41.8 % Not Available [facility] (Lab) [address] [place] [address], 61824, 08/28/2023 15:18:37 08/28/19 24 08/28/2023 LIPID PANEL * chol/HDL ratio 2.4 0.0 - 4.4 Not Available [facility] (Lab) [address] [place] [address], 26251, 08/28/2023 15:18:37 08/28/19 24 08/28/2023 LIPID PANEL * CHD relative risk 0.5 x_avg 0.0 - 1.0 Not Available [facility] (Lab) [address] [place] [address], 40402, 08/28/2023 15:18:37 08/28/19 24 08/28/2023 LIPID PANEL * LDL/HDL ratio 0.6 0.0 - 3.2 Not Available [facility] (Lab) [address] [place] [address], 68651, 08/28/2023 15:18:37 08/28/19 24 08/28/2023 LIPID PANEL * CHD relative risk. 0.2 x_avg 0.0 - 1.0 non-H DL-C and LDL(C ALC) refer ence range s refle ct NCEP ATP III recom menda tions for moder ate risk patie nts Not Available [facility] (Lab) [address] [place] [address], 90578, 08/28/2023 15:18:37 08/28/19 24 08/28/2023 TROPO LORENA HIGH SENSI TIVIT Y* troponin hs <4.0 pg/mL 0.0 - 60.4 Not Available [facility] (Lab) [address] [place] [address], 72316, 08/28/2023 16:07:47 08/28/19 24 08/28/2023 TROPO LORENA HIGH SENSI TIVIT Y* specimen seq. RANDOM Not Available [facility] (Lab) [address] [place] [address], 21315, 08/28/2023 16:07:47 09/30/19 24 09/30/2023 CBC W/ DIFFE RENTI AL* WBC 4.90 TH/cm m 5.00 - 10.00 low Not Available [facility] (Lab) [address] [place] [address], 50570, 09/30/2023 23:01:49 09/30/19 24 09/30/2023 CBC W/ DIFFE RENTI AL* neut % 52.1 % 40.0 - 80.0 Not Available [facility] (Lab) [address] [place] [address], 80837, 09/30/2023 23:01:49 09/30/19 24 09/30/2023 CBC W/ DIFFE RENTI AL* lymph % 34.5 % 10.0 - 50.0 Not Available [facility] (Lab) [address] [place] [address], 51116, 09/30/2023 23:01:49 09/30/19 24 09/30/2023 CBC W/ DIFFE RENTI AL* mono % 11.2 % 2.0 - 12.0 Not Available [facility] (Lab) [address] [place] [address], 01408, 09/30/2023 23:01:49 09/30/19 24 09/30/2023 CBC W/ DIFFE RENTI AL* eos % 1.6 % 0.0 - 8.0 Not Available [facility] (Lab) [address] [place] [address], 50839, 09/30/2023 23:01:49 09/30/19 24 09/30/2023 CBC W/ DIFFE RENTI AL* baso % 0.4 % 0.0 - 3.0 Not Available [facility] (Lab) [address] [place] [address], 58928, 09/30/2023 23:01:49 09/30/19 24 09/30/2023 CBC W/ DIFFE RENTI AL* Ig % 0.2 % 0.0 - 1.1 Not Available [facility] (Lab) [address] [place] [address], 16047, 09/30/2023 23:01:49 09/30/19 24 09/30/2023 CBC W/ DIFFE RENTI AL* NRBC % 0.0 % 0.0 - 0.0 Not Available [facility] (Lab) [address] [place] [address], 51529, 09/30/2023 23:01:49 09/30/19 24 09/30/2023 CBC W/ DIFFE RENTI AL* neut abs count 2.6 TH/cm m 1.6 - 8.4 Not Available [facility] (Lab) [address] [place] [address], 19419, 09/30/2023 23:01:49 09/30/19 24 09/30/2023 CBC W/ DIFFE RENTI AL* lymph abs count 1.7 TH/cm m 1.5 - 4.0 Not Available [facility] (Lab) [address] [place] [address], 92715, 09/30/2023 23:01:49 09/30/19 24 09/30/2023 CBC W/ DIFFE RENTI AL* mono abs count 0.6 TH/cm m 0.2 - 1.0 Not Available [facility] (Lab) [address] [place] [address], 05470, 09/30/2023 23:01:49 09/30/19 24 09/30/2023 CBC W/ DIFFE RENTI AL* eos abs count 0.1 TH/cm m 0.0 - 0.5 Not Available [facility] (Lab) [address] [place], [address], 09/30/2023 23:01:49 09/30/19 24 09/30/2023 CBC W/ DIFFE RENTI AL* baso abs count 0.0 TH/cm m 0.0 - 0.2 Not Available [facility] (Lab) [address] [place] [address], 06079, 09/30/2023 23:01:49 09/30/19 24 09/30/2023 CBC W/ DIFFE RENTI AL* Ig abs count 0.0 TH/cm m 0.0 - 0.1 Not Available [facility] (Lab) [address] [place] [address], 89067, 09/30/2023 23:01:49 09/30/19 24 09/30/2023 CBC W/ DIFFE RENTI AL* NRBC abs count 0.0 mil/c mm 0.0 - 0.0 Not Available [facility] (Lab) [address] [place] [address], 56220, 09/30/2023 23:01:49 09/30/19 24 09/30/2023 CBC W/ DIFFE RENTI AL* RBC 3.98 mil/c mm 3.90 - 5.40 Not Available [facility] (Lab) [address] [place] [address], 65657, 09/30/2023 23:01:49 09/30/1909/30/2023 CBC W/ DIFFE RENTI AL* hemoglobin 12.0 gm/dL 12.0 - 16.0 Not Available [facility] (Lab) [address] [place] [address], 63465, 09/30/2023 23:01:49 09/30/19 24 09/30/2023 CBC W/ DIFFE RENTI AL* hematocrit 37 % 37 - 47 Not Available [facility] (Lab) [address] [place] [address], 01593, 09/30/2023 23:01:49 09/30/19 24 09/30/2023 CBC W/ DIFFE RENTI AL* MCV 93 fL 82 - 92 high Not Available [facility] (Lab) [address] [place] [address], 60512, 09/30/2023 23:01:49 09/30/19 24 09/30/2023 CBC W/ DIFFE RENTI AL* MCH 30.2 pg 27.0 - 31.0 Not Available [facility] (Lab) [address] [place] [address], 92819, 09/30/2023 23:01:49 09/30/19 24 09/30/2023 CBC W/ DIFFE RENTI AL* MCHC 32.3 % 32.0 - 36.0 Not Available [facility] (Lab) [address] [place] [address], 87297, 09/30/2023 23:01:49 09/30/19 24 09/30/2023 CBC W/ DIFFE RENTI AL* RDW-SD 48.0 fL 39.0 - 49.0 Not Available [facility] (Lab) [address] [place] [address], 75150, 09/30/2023 23:01:49 09/30/19 24 09/30/2023 CBC W/ DIFFE RENTI AL* platelet count 76 TH/cm m 150 - 450 low -PREL IMINA RY-RE PORT: 09/29 2301 Not Available [facility] (Lab) [address] [place] [address], 69548, 09/30/2023 23:01:49 09/30/19 24 09/30/2023 CBC W/ DIFFE RENTI AL* WBC 4.90 TH/cm m 5.00 - 10.00 low Not Available [facility] (Lab) [address] [place] [address], 66713, 09/30/2023 23:21:49 09/30/19 24 09/30/2023 CBC W/ DIFFE RENTI AL* neut % 52.1 % 40.0 - 80.0 Not Available [facility] (Lab) [address] [place] [address], 69320, 09/30/2023 23:21:49 09/30/19 24 09/30/2023 CBC W/ DIFFE RENTI AL* lymph % 34.5 % 10.0 - 50.0 Not Available [facility] (Lab) [address] [place] [address], 79530, 09/30/2023 23:21:49 09/30/19 24 09/30/2023 CBC W/ DIFFE RENTI AL* mono % 11.2 % 2.0 - 12.0 Not Available [facility] (Lab) [address] [place] [address], 14217, 09/30/2023 23:21:49 09/30/19 24 09/30/2023 CBC W/ DIFFE RENTI AL* eos % 1.6 % 0.0 - 8.0 Not Available [facility] (Lab) [address] [place] [address], 65771, 09/30/2023 23:21:49 09/30/19 24 09/30/2023 CBC W/ DIFFE RENTI AL* baso % 0.4 % 0.0 - 3.0 Not Available [facility] (Lab) [address] [place] [address], 95077, 09/30/2023 23:21:49 09/30/19 24 09/30/2023 CBC W/ DIFFE RENTI AL* Ig % 0.2 % 0.0 - 1.1 Not Available [facility] (Lab) [address] [place] [address], 04979, 09/30/2023 23:21:49 09/30/19 24 09/30/2023 CBC W/ DIFFE RENTI AL* NRBC % 0.0 % 0.0 - 0.0 Not Available [facility] (Lab) [address] [place] [address], 82823, 09/30/2023 23:21:49 09/30/19 24 09/30/2023 CBC W/ DIFFE RENTI AL* neut abs count 2.6 TH/cm m 1.6 - 8.4 Not Available [facility] (Lab) [address] [place] [address], 77635, 09/30/2023 23:21:49 09/30/19 24 09/30/2023 CBC W/ DIFFE RENTI AL* lymph abs count 1.7 TH/cm m 1.5 - 4.0 Not Available [facility] (Lab) [address] [place] [address], 75597, 09/30/2023 23:21:49 09/30/19 24 09/30/2023 CBC W/ DIFFE RENTI AL* mono abs count 0.6 TH/cm m 0.2 - 1.0 Not Available [facility] (Lab) [address] [place] [address], 32507, 09/30/2023 23:21:49 09/30/19 24 09/30/2023 CBC W/ DIFFE RENTI AL* eos abs count 0.1 TH/cm m 0.0 - 0.5 Not Available [facility] (Lab) [address] [place] [address], 85998, 09/30/2023 23:21:49 09/30/19 24 09/30/2023 CBC W/ DIFFE RENTI AL* baso abs count 0.0 TH/cm m 0.0 - 0.2 Not Available [facility] (Lab) [address] [place] [address], 58648, 09/30/2023 23:21:49 09/30/19 24 09/30/2023 CBC W/ DIFFE RENTI AL* Ig abs count 0.0 TH/cm m 0.0 - 0.1 Not Available [facility] (Lab) [address] [place] [address], [id number], 09/30/2023 23:21:49 09/30/1909/30/2023 CBC W/ DIFFE RENTI AL* NRBC abs count 0.0 mil/c mm 0.0 - 0.0 Not Available [facility] (Lab) [address] [place] [address], 60940, 09/30/2023 23:21:49 09/30/19 24 09/30/2023 CBC W/ DIFFE RENTI AL* RBC 3.98 mil/c mm 3.90 - 5.40 Not Available [facility] (Lab) [address] [place] [address], 05841, 09/30/2023 23:21:49 09/30/19 24 09/30/2023 CBC W/ DIFFE RENTI AL* hemoglobin 12.0 gm/dL 12.0 - 16.0 Not Available [facility] (Lab) [address] [place] [address], 35843, 09/30/2023 23:21:49 09/30/1909/30/2023 CBC W/ DIFFE RENTI AL* hematocrit 37 % 37 - 47 Not Available [facility] (Lab) [address] [place] [address], 11559, 09/30/2023 23:21:49 09/30/19 24 09/30/2023 CBC W/ DIFFE RENTI AL* MCV 93 fL 82 - 92 high Not Available [facility] (Lab) [address] [place] [address], 18646, 09/30/2023 23:21:49 09/30/19 24 09/30/2023 CBC W/ DIFFE RENTI AL* MCH 30.2 pg 27.0 - 31.0 Not Available [facility] (Lab) [address] [place] [address], 87615, 09/30/2023 23:21:49 09/30/19 24 09/30/2023 CBC W/ DIFFE RENTI AL* MCHC 32.3 % 32.0 - 36.0 Not Available [facility] (Lab) [address] [place] [address], 42394, 09/30/2023 23:21:49 09/30/19 24 09/30/2023 CBC W/ DIFFE RENTI AL* RDW-SD 48.0 fL 39.0 - 49.0 Not Available [facility] (Lab) [address] [place] [address], [id number], 09/30/2023 23:21:49 09/30/1909/30/2023 CBC W/ DIFFE RENTI AL* platelet count 76 TH/cm m 150 - 450 low -PREL IMINA RY-RE PORT: 09/29 2301 -DARYL L Not Available [facility] (Lab) [address] [place] [address], [id number], 09/30/2023 23:21:49 09/30/19 24 09/30/2023 CBC W/ DIFFE RENTI AL* WBC 4.90 TH/cm m 5.00 - 10.00 low Not Available [facility] (Lab) [address] [place] [address], [id number], 09/30/2023 23:21:52 09/30/19 24 09/30/2023 CBC W/ DIFFE RENTI AL* neut % 52.1 % 40.0 - 80.0 Not Available [facility] (Lab) [address] [place] [address], [id number], 09/30/2023 23:21:52 09/30/1909/30/2023 CBC W/ DIFFE RENTI AL* lymph % 34.5 % 10.0 - 50.0 Not Available [facility] (Lab) [address] [place] [address], [id number], 09/30/2023 23:21:52 09/30/1909/30/2023 CBC W/ DIFFE RENTI AL* mono % 11.2 % 2.0 - 12.0 Not Available [facility] (Lab) [address] [place] [address], [id number], 09/30/2023 23:21:52 09/30/19 24 09/30/2023 CBC W/ DIFFE RENTI AL* eos % 1.6 % 0.0 - 8.0 Not Available [facility] (Lab) [address] [place] [address], [id number], 09/30/2023 23:21:52 09/30/19 24 09/30/2023 CBC W/ DIFFE RENTI AL* baso % 0.4 % 0.0 - 3.0 Not Available [facility] (Lab) [address] [place] [address], [id number], 09/30/2023 23:21:52 09/30/19 24 09/30/2023 CBC W/ DIFFE RENTI AL* Ig % 0.2 % 0.0 - 1.1 Not Available [facility] (Lab) [address] [place] [address], [id number], 09/30/2023 23:21:52 09/30/19 24 09/30/2023 CBC W/ DIFFE RENTI AL* NRBC % 0.0 % 0.0 - 0.0 Not Available [facility] (Lab) [address] [place] [address], [id number], 09/30/2023 23:21:52 09/30/19 24 09/30/2023 CBC W/ DIFFE RENTI AL* neut abs count 2.6 TH/cm m 1.6 - 8.4 Not Available [facility] (Lab) [address] [place] [address], [id number], 09/30/2023 23:21:52 09/30/19 24 09/30/2023 CBC W/ DIFFE RENTI AL* lymph abs count 1.7 TH/cm m 1.5 - 4.0 Not Available [facility] (Lab) [address] [place] [address], [id number], 09/30/2023 23:21:52 09/30/19 24 09/30/2023 CBC W/ DIFFE RENTI AL* mono abs count 0.6 TH/cm m 0.2 - 1.0 Not Available [facility] (Lab) [address] [place] [address], 70226, 09/30/2023 23:21:52 09/30/19 24 09/30/2023 CBC W/ DIFFE RENTI AL* eos abs count 0.1 TH/cm m 0.0 - 0.5 Not Available [facility] (Lab) [address] [place] [address], 72961, 09/30/2023 23:21:52 09/30/19 24 09/30/2023 CBC W/ DIFFE RENTI AL* baso abs count 0.0 TH/cm m 0.0 - 0.2 Not Available [facility] (Lab) [address] [place] [address], 86920, 09/30/2023 23:21:52 09/30/19 24 09/30/2023 CBC W/ DIFFE RENTI AL* Ig abs count 0.0 TH/cm m 0.0 - 0.1 Not Available [facility] (Lab) [address] [place] [address], 11105, 09/30/2023 23:21:52 09/30/19 24 09/30/2023 CBC W/ DIFFE RENTI AL* NRBC abs count 0.0 mil/c mm 0.0 - 0.0 Not Available [facility] (Lab) [address] [place] [address], 12831, 09/30/2023 23:21:52 09/30/19 24 09/30/2023 CBC W/ DIFFE RENTI AL* RBC 3.98 mil/c mm 3.90 - 5.40 Not Available [facility] (Lab) [address] [place] [address], 83415, 09/30/2023 23:21:52 09/30/19 24 09/30/2023 CBC W/ DIFFE RENTI AL* hemoglobin 12.0 gm/dL 12.0 - 16.0 Not Available [facility] (Lab) [address] [place] [address], 52389, 09/30/2023 23:21:52 09/30/19 24 09/30/2023 CBC W/ DIFFE RENTI AL* hematocrit 37 % 37 - 47 Not Available [facility] (Lab) [address] [place] [address], 65977, 09/30/2023 23:21:52 09/30/19 24 09/30/2023 CBC W/ DIFFE RENTI AL* MCV 93 fL 82 - 92 high Not Available [facility] (Lab) [address] [place] [address], 70493, 09/30/2023 23:21:52 09/30/1909/30/2023 CBC W/ DIFFE RENTI AL* MCH 30.2 pg 27.0 - 31.0 Not Available [facility] (Lab) [address] [place] [address], 02827, 09/30/2023 23:21:52 09/30/19 24 09/30/2023 CBC W/ DIFFE RENTI AL* MCHC 32.3 % 32.0 - 36.0 Not Available [facility] (Lab) [address] [place] [address], 95778, 09/30/2023 23:21:52 09/30/1909/30/2023 CBC W/ DIFFE RENTI AL* RDW-SD 48.0 fL 39.0 - 49.0 Not Available [facility] (Lab) [address] [place] [address], 76445, 09/30/2023 23:21:52 09/30/19 24 09/30/2023 CBC W/ DIFFE JUDITH AL* platelet count 76 TH/cm m 150 - 450 low -PREL IMINA RY-RE PORT: 09/29 2301 -DARYL L Not Available [facility] (Lab) [address] [place] [address], 70556, 09/30/2023 23:21:52 09/30/19 24 09/30/2023 COMPR EHENS TYLER METAB OLIC PANEL (CMP) glucose 118 mg/dL 70 - 116 high Not Available [facility] (Lab) [address] [place] [address], 75889, 09/30/2023 23:26:50 09/30/19 24 09/30/2023 COMPR EHENS TYLER METAB OLIC PANEL (CMP) BUN 18 mg/dL 6 - 25 Not Available [facility] (Lab) [address] [place] [address], 49739, 09/30/2023 23:26:50 09/30/19 24 09/30/2023 COMPR EHENS TYLER METAB OLIC PANEL (CMP) creatinine 0.80 mg/dL 0.51 - 0.95 Not Available [facility] (Lab) [address] [place] [address], 19954, 09/30/2023 23:26:50 09/30/19 24 09/30/2023 COMPR EHENS TYLER METAB OLIC PANEL (CMP) sodium serum 140 mmol/ L 136 - 145 Not Available [facility] (Lab) [address] [place] [address], 59947, 09/30/2023 23:26:50 09/30/19 24 09/30/2023 COMPR EHENS TYLER METAB OLIC PANEL (CMP) potassium serum 3.4 mmol/ L 3.4 - 5.2 Not Available [facility] (Lab) [address] [place] [address], 09523, 09/30/2023 23:26:50 09/30/19 24 09/30/2023 COMPR EHENS TYLER METAB OLIC PANEL (CMP) chloride serum 103 mmol/ L 96 - 110 Not Available [facility] (Lab) [address] [place] [address], 42192, 09/30/2023 23:26:50 09/30/19 24 09/30/2023 COMPR EHENS TYLER METAB OLIC PANEL (CMP) carbon dioxide (co2) 30 mmol/ L 22 - 34 Not Available [facility] (Lab) [address] [place] [address], 12002, 09/30/2023 23:26:50 09/30/19 24 09/30/2023 COMPR EHENS TYLER METAB OLIC PANEL (CMP) anion gap 7.3 mmol/ L Not Available [facility] (Lab) [address] [place] [address], 02374, 09/30/2023 23:26:50 09/30/19 24 09/30/2023 COMPR EHENS TYLER METAB OLIC PANEL (CMP) calcium serum 9.4 mg/dL 8.2 - 10.2 Not Available [facility] (Lab) [address] [place] [address], 09368, 09/30/2023 23:26:50 09/30/19 24 09/30/2023 COMPR EHENS TYLER METAB OLIC PANEL (CMP) bilirubin total 0.5 mg/dL 0.0 - 1.3 Not Available [facility] (Lab) [address] [place] [address], 62153, 09/30/2023 23:26:50 09/30/19 24 09/30/2023 COMPR EHENS TYLER METAB OLIC PANEL (CMP) alk. phos. 118 U/L 46 - 116 high Not Available [facility] (Lab) [address] [place] [address], 36562, 09/30/2023 23:26:50 09/30/19 24 09/30/2023 COMPR EHENS TYLRE METAB OLIC PANEL (CMP) SGOT (AST) 30 U/L 15 - 37 Not Available [facility] (Lab) [address] [place] [address], 89320, 09/30/2023 23:26:50 09/30/19 24 09/30/2023 COMPR EHENS TYLER METAB OLIC PANEL (CMP) SGPT (ALT) 39 U/L 12 - 78 Not Available [facility] (Lab) [address] [place] [address], 47555, 09/30/2023 23:26:50 09/30/19 24 09/30/2023 COMPR EHENS TYLER METAB OLIC PANEL (CMP) total protein 6.9 gm/dL 6.0 - 8.0 Not Available [facility] (Lab) [address] [place] [address], 02009, 09/30/2023 23:26:50 09/30/19 24 09/30/2023 COMPR EHENS TYLER METAB OLIC PANEL (CMP) albumin 3.6 gm/dL 3.4 - 5.0 Not Available [facility] (Lab) [address] [place] [address], 97534, 09/30/2023 23:26:50 09/30/19 24 09/30/2023 COMPR EHENS TYLER METAB OLIC PANEL (CMP) age 83 years Not Available [facility] (Lab) [address] [place] [address], 26271, 09/30/2023 23:26:50 09/30/19 24 09/30/2023 COMPR EHENS TYLER METAB OLIC PANEL (CMP) eGFR (non-afr.hayde r.) 69 mL/mi n Not Available [facility] (Lab) [address] [place] [address], 39510, 09/30/2023 23:26:50 09/30/19 24 09/30/2023 COMPR EHENS TYLER METAB OLIC PANEL (CMP) eGFR (afr-angeline n) 83 mL/mi n eGFR <60 ml/mi n for >=3 month s is indic ative of chron ic kidne y The eGFR calcu lated using the MDRD Study equat ion is valid ated non hospi taliz ed patie nts 18 to 70 years of age and is not rep patie nts less than 18 years of age. Not Available [facility] (Lab) [address] [place] [address], 91650, 09/30/2023 23:26:50 09/30/19 24 09/30/2023 TROPO LORENA HIGH SENSI TIVIT Y* troponin hs 7.9 pg/mL 0.0 - 60.4 Not Available [facility] (Lab) [address] [place] [address], 42676, 09/30/2023 23:26:52 09/30/19 24 09/30/2023 TROPO LORENA HIGH SENSI TIVIT Y* specimen seq. RANDOM Not Available [facility] (Lab) [address] [place] [address], 51224, 09/30/2023 23:26:52 09/30/19 24 09/30/2023 D-DIM ER D-dimer 0.57 mg/L 0.19 - 0.50 high ( Dionne l refer ence Not Available [facility] (Lab) [address] [place] [address], 76444, 09/30/2023 23:27:50 09/30/1910/01/2023 TROPO LORENA HIGH SENSI TIVIT Y* troponin hs 7.2 pg/mL 0.0 - 60.4 Not Available [facility] (Lab) [address] [place] [address], 59346, 10/01/2023 00:17:53 09/30/1910/01/2023 TROPO LORENA HIGH SENSI TIVIT Y* specimen seq. 1 HOUR Not Available [facility] (Lab) [address] [place] [address], 60613, 10/01/2023 00:17:53 11/08/19 11/08/2023 hemog lobin A1C, finge rstic k hemoglobin A1C 6.6 % <5.7 Not Available [facility] [address] [facility], [place], [address], 11/08/2023 12:32:54 08/29/19 24 08/28/2023 EKG order yony ng 12 lead [facility] [place] [address] EKG TRANSC RIPTIO N REPORT _ Accoun t: Access ion: Admit: StayTy pe: [id number] [facility] Observ ation: Order ID: Submit nate: David aly Provid er: 2023 10:56 [id number] HENRRY HOL[place] _ [place] [id number] [facility] Test Date: 08-27 Pat Name: CRISTELVICTORIA Khan Depart ment: Cardio logy Clinic Patimarisol t ID: [id number] Room: Gender : Yue Techngwendolyn perri: [facility] : [birth year] Reques nate By: HENRRY Mcdaniels Order Number : [id number] Kelby mcdaniels MD: Henrry Ortega Measur ements Interv als [place] Rate: 100 P: 72 DE: 200 QRS: -10 QRSD: 92 T: 0 QT: 356 QTc: 459 Interp retive Statem ents Normal sinus rhythm Low voltag e QRS Compar ed to ECG 2023 10:33: 49 Low QRS voltag e now presen t First degree AV block no longer presen t Electr onical ly Signed On 13:23: 03 EDT by Henrry Ortega [facility] (Lab) [address] [place], [address], 09/03/2023 13:49:06 10/01/19 24 09/30/2023 xr chest nik ble or 1V [facility] RADIOL OGY [place] Lemus [address] INFINI TT PACS TRANSC RIPTIO N REPORT _ Patien t Name: CRISTEL SEGUNDO MRN: Sex: : Age: [id number] F [id number] Accoun t: Access ion: Admit: StayTy pe: [id number] E Ravinder d: Order ID: Submit nate: David ng Provid er: 2023 22:41 [id number] ALD LUIS A ACEVEDO nate: Techno logist : Result ed: 2023 [...] signed by: Kris Ferguson ed: 2023 09:[email or web address] (Lab) [address] [place] [address], 01212, 10/01/2023 16:07:13 10/01/19 24 10/01/2023 CT angio chest ABD pelvi s W IV contr st* [facility] RADIOL OGY Lamar Collins hermosillo [address] INFINI TT PACS TRANSC RIPTIO N REPORT _ Patien t Name: CRISTEL SEGUNDO MRN: Sex: : Age: [id number] F [id number] Accoun t: Access ion: Admit: StayTy pe: [id number] E Ravinder d: Order ID: Submit nate: David ng Provid er: 2023 23:30 [id number] LUIS A VEGA nate: Techno logist : [...] Index Regist ry (DIR) with the [place] of Radiol ogy (ACR). RADIAT ION OPTIMI ZATION : All CT scans at this facili ty use at least one of these dose optimi zation techni ques: automa nate exposu re contro l; mA and/or kV adjust ment per patien t size (inclu matt target ed exams where dose is matche d to clinic al indica tion); or iterat tyler recons tructi on. Electr onical ly signed by: Kris Ferguson ed: 2023 09:22 [email or web address] [facility] (Lab) [address] [place] [address], 48587, 10/01/2023 16:07:14 10/01/19 24 09/30/2023 EKG order yony aly 12 lead [facility] [place] [address] EKG TRANSC FOZIA N REPORT _ Accoun t: Access ion: Admit: StayTy pe: [id number] E/R Observ ation: Order ID: Submit nate: David aly Provid er: 2023 22:33 [id number] LUIS A FLANNERY _ [place] [id number] [facility]: [facility]29 Pat Name: KAYLEE Khan Depart ment: [facility] bermudez ID: [id number] Room: ED TR Gender : Yue Reardon perri: [place] : 1941-0 06-22 Reques nate By: LUIS A Khan Order Number : [id number] Kelby mcdaniels MD: Adi rothman Measur ements Interv als Pacolet Rate: 94 P: 67 DE: 192 QRS: -21 QRSD: 90 T: 0 QT: 368 QTc: 460 Interp retive Statem ents Normal sinus rhythm Compar ed to ECG 2023 10:56: 00 No signif icant change s Electr onical ly Signed On 024 9:48:5 6 EDT by Adi mendez[address] [place] [address] (Lab) [address] [place] [address], 91406, 10/01/2023 16:07:13 10/17/19 24 10/02/2023 EKG order yony ng 12 lead [facility] [place] t [address] EKG TRANSC RIPTIO N REPORT _ Accoun t: Access ion: Admit: StayTy pe: [id number] [facility] Observ ation: Order ID: Submit nate: David aly Provid er: 2023 09:52 [id number] HENRRY RENEE _ [place] [id number] [facility] Cardio logy Test Date: 10-01 Pat Name: KAYLEE Khan Depart ment: Cardio logy Clinic Evelyn bermudez ID: [id number] Room: Gender : F Techn perri: [facility] : 1941-0 06-22 Reques nate By: HENRRY Mcdaniels Order Number : [id number] Kelby mcdaniels MD: Jung Hoffmann ements Interv als Paco[place] Rate: 77 P: 61 DE: 194 QRS: -21 QRSD: 86 T: 0 QT: 394 QTc: 445 Interp retive Statem ents Normal sinus rhythm Compar ed to ECG 2023 22:33: 49 No signif icant change s Electr onical ly Signed On 024 15:33: 04 EDT by Jung mendez[address] [place] [address] (Lab) [address] [place] [address], 75156, 10/18/2023 07:53:24 10/24/19 24 10/24/2023 PET-C T, skull base to mid-t high scan No observ ation record ed. [email or web address] [address] , [place], [address], 10/29/2023 13:01:17 11/14/19 24 11/13/2023 EKG order yony ng 12 lead [facility] NOEMI rosarioeVirgilioamelie t 12236 EKG TRANSC RIPTIO N REPORT _ Accoun t: Access ion: Admit: StayTy pe: [id number] 11/13/19 24 [facility] Observ ation: Order ID: Submit nate: David aly Provid er: 2023 09:24 [id number] HENRRY RENEE _ [place] [id number] [facility] Cardio logy Test Date: 11-12 Pat Name: KAYLEE Esther Khan Depart ment: Cardio logy Clinic Patimarisol t ID: [id number] Room: Gender : F Techngwendolyn perri: [facility] : [birth year] Reques nate By: HENRRY Mcdaniels Order Number : [id number] Kelby mcdaniels MD: Henrry Ortega Measur ements Interv als [place] Rate: 75 P: 70 DE: 204 QRS: -19 QRSD: 88 T: 0 QT: 404 QTc: 451 Interp retive Statem ents Normal sinus rhythm Low voltag e QRS Compar ed to ECG 2023 09:52: 35 Low QRS voltag e now presen t Electr onical ly Signed On 11-14-19 16:49: 58 EDT by Henrry mendez[address] [place] [address] (Lab) [address] [place] [address], 16923, 11/15/2023 12:39:20 Result Notes None recorded. Problems Name Problem SNOMED Code Status Onset Date Resolution Date Notes Provider Name and Address Organization Details Recorded Time Shannon crawford [id number] Completed 201305/13/2023 Problem Code: I10; Problem Code Type: ICD-10; AYSHA BARILLAS MD [address], [place], [address] , [facility] 4 13:45:04 Migraine 78038671 [facility] 4 12:45:27 History of disorder of digestiv e system 767364032 Completed 201305/13/2023 Problem Code: Z87.19; Problem Code Type: ICD-10; AYSHA BARILLAS MD [address], [place], [address] , [facility] 4 13:45:04 Restless legs 07537593 Active [facility] 4 12:48:18 Disorder of nervous system due to type 2 diabetes mellitus 549592091 Completed 201305/13/2023 04/27/19 20 - Comments only [...] Code Type: ICD-10; MD Livan RODR[address]UEZ [address], [place] [address] , [facility] 4 13:45:04 Allergic rhinitis 02690093 Completed 201305/13/2023 Problem Code: J30.9; Problem Code Type: ICD-10; MD Livan RODRIGUEZ Dr, [address] 4 13:45:04 Mixed hyperlip idemia 523634280 Active 2013 [facility] 4 12:45:48 Neuropat hy due to type 2 diabetes mellitus 70103002017 9106 Active 2013 [facility]ail La[facility] 4 12:46:16 Intolera nce to lactose 497942709 Completed 201305/13/2023 Problem Code: E73.9; Problem Code Type: ICD-10; MD Livan ROD[address], [place] [address] , [facility] 4 13:45:04 Heart murmur 65769272 Active [address], [facility] [address] , [facility] 4 06:52:52 History of malignan t neoplasm of bladder 366807609 Active 2013, recurren ce 2008, Dr. Boykin, chemo instilla tion, straight caths [facility] 4 12:43:10 History of nutritio nal disorder 730196084 Completed 201405/13/[address], [facility] [address] , [facility] 4 13:45:04 Irritabl e bowel syndrome 32415672 Active [facility] 4 12:45:06 Eczema 64323113 Active 2014 [place] [facility] 4 12:38:10 Hernia of abdomina l cavity 87519578 [facility] 4 12:41:15 Cirrhosi s of liver 62853153 Completed 201505/13/2023 09/22/19 20 - Comments only - Nat Bryant M.D. - Has gained some weight, and possibly has ascites, although I have never examined her before. Follow-u p as planned tomorrow for imaging, labs, and speciali [facility] ent at [place] [facility]. Problem Code: K74.69; Problem Code Type: ICD-10; MD Livan RODR[address], [place], [address] , [facility] 4 13:45:04 History of urinary tract infectio n 42998790515 07 Completed 201505/13/2023 08/03/19 16 - Comments [...] Code Type: ICD-10; MD Livan RODRIGUEZ Dr, [place], [address] , [facility] 4 13:45:04 Screenin g for malignan t neoplasm of breast Completed 201505/13/2023 Problem Code: Z12.39; Problem Code Type: ICD-10; MD Livan RODRIGUEZ Dr, [address] 4 13:45:04 Candidia sis of vagina 51947808 Completed 201505/13/2023 Problem Code: B37.3; Problem Code Type: ICD-10; MD Livan RODRIGUEZ Dr, [address] 4 13:45:04 Portal hyperten ty 41503759 Active 2015 no ascites or encephal opathy, EGD 2015 [facility]gastric ulcer) [facility] 4 12:47:45 Genitour inary symptoms 787872485 Completed 201504/17/2016 Problem Code: R39.89; Problem Code Type: ICD-10; Not Available [facility] 3 04:10:10 Screenin g for malignan t neoplasm of colon Completed 201605/13/2023 Problem Code: Z12.11; Problem Code Type: ICD-10; MD Livan RODRIGUEZ Dr, [address] 4 13:45:04 Pneumoni a 255895130 Completed 201602/15/2017 02/12/20 17 - Improved - 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 BAR POINTER - s/p tx with azithrom ycin pt signific antly improved RTC if sx worsen/p ersist Problem Code: J18.9; Problem Code Type: ICD-10; Not Available [facility] 3 04:10:10 Orthosta tic hypotens ion 58963147 Active 2017 [facility] 4 12:46:41 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 Active 2018 small endoscop y 2019 [facility] repeat one year [facility] 4 12:39:42 Hepatic failure 46248598 Completed 201805/13/2023 Problem Code: K72.90; Problem Code Type: ICD-10; MD Livan RODR[address]UE[address], [place], [address] , [facility] 4 13:45:04 Acute upper respirat ory infectio n 88413324 Completed 201811/08/2018 Problem Code: J06.9; Problem Code Type: ICD-10; MD Livan RODRIGUEZ Dr, [address] 4 13:45:04 Proteinu vinod 14516827 Completed 201805/13/2023 Problem Code: R80.9; Problem Code Type: ICD-10; MD Livan RODRIGUEZ Dr, [address] 4 13:45:04 Hyperlip idemia 84242843 Active [facility] 4 12:44:49 Gastroes ophageal reflux disease without esophagi tis 023090976 Active 2019 [facility] 4 12:39:54 Urinary tract infectio us disease 84214071 Completed 201909/29/2019 09/22/19 20 - Comments only [...] N39.0; Problem Code Type: ICD-10; Not Available [facility] 3 04:10:12 Nervous system and sense organ diseases 179093050 Completed 202005/13/2023 AYSHA BARILLAS MD [address], [facility] [address] [facility] 4 13:45:04 Fall on or from stairs or steps Completed 202005/27/2020 Problem Code: W10.9xxA ; Problem Code Type: ICD-10; Not Available [facility] 3 04:10:12 Knee joint effusion 988122918 Completed 202006/06/2020 Problem Code: M25.469; Problem Code Type: ICD-10; Not Available [facility] 3 04:10:13 Low back pain 832497596 Completed 202006/20/2020 Problem Code: M54.5; Problem Code Type: ICD-10; INDIRA YEN [address], [facility] [address] [facility] 4 14:31:55 Dysuria 53706134 Completed 202009/03/2020 Problem Code: R30.0; Problem Code Type: ICD-10; Not Available [facility] 3 04:10:13 Psychoph ysiologi c insomnia 328360807 Active 2020 Insomnia , chronic [facility] 4 12:48:07 Dizzines s and giddines s 716552013 Completed 202010/31/2020 Problem Code: R42; Problem Code Type: ICD-10; Not Available [facility] 3 04:10:14 Atrophic vaginiti s 78868860 Active 2020 [facility] 4 12:37:19 Urinary tract infectio us disease 09430719 Completed 202003/03/2021 Problem Code: N39.0; Problem Code Type: ICD-10; Not Available [facility] 3 04:10:14 Disorder of hematopo ietic structur e 720560122 Completed 202105/13/2023 Problem Code: D75.89; Problem Code Type: ICD-10; AYSHA BARILLAS MD [address], [facility] [address] [facility] 4 13:45:04 Tension- type headache 157705874 Completed 202105/13/2023 Problem Code: G44.209; Problem Code Type: ICD-10; AYSHA BARILLAS MD [address], [facility] [address] [facility] 4 13:45:04 Acute conjunct ivitis of left eye 73298519974 9105 Completed 202112/19/2021 12/13/19 22 - Comments only - Nat Bryant M.D. - Likely bacteria l. Rx sent for e-mycin ointment . Call for reevalua tion if worsenin g, or no better w/in 48 hours. Problem Code: H10.32; Problem Code Type: ICD-10; Not Available [facility] 3 04:10:15 Cerebrov ascular disease 08461308 Active 2021 [facility] 4 12:37:49 Urinary tract infectio us disease 28024387 Completed 202208/28/2022 Problem Code: N39.0; Problem Code Type: ICD-10; Not Available [facility] 3 04:10:15 Pneumoni a 304778494 Completed 202211/08/2022 10/30/19 23 - Improved - Aysha Barillas MD - But with persiste nt evidence of congesti on in right lung. Advised chest x-ray in a couple of weeks to evaluate for any persiste nt abnormal ities requirin g further follow-u p. She has not had imaging yet with this infectio n. Problem Code: J18.9; Problem Code Type: ICD-10; Not Available [facility] 3 04:10:15 Edema 465380826 Active 2022 Peripher al edema [facility] 4 12:38:42 Castillo' s esophagu s 579331121 Active 2022 [facility] 4 12:37:33 Candidia sis of skin 27286074 Completed 201810/23/2022 Problem Code: B37.2; Problem Code Type: ICD-10; Not Available [facility] 3 04:10:16 Acute atopic conjunct ivitis 74635659 Completed 201804/21/2019 Problem Code: H10.10; Problem Code Type: ICD-10; Not Available [facility] 3 04:10:16 Constipa tion 83268669 Completed 201301/02/2023 Problem Code: K59.00; Problem Code Type: ICD-10; Not Available [facility] 3 04:10:16 Cough 32294522 Completed 202201/02/2023 Problem Code: R05.8; Problem Code Type: ICD-10; Not Available [facility] 3 04:10:16 Hyperten sive disorder 87269813 Completed 201301/02/2023 Not Available [facility] 3 04:10:17 Neoplasm of urinary bladder 024055826 Completed 201301/02/2023 Problem Code: D49.4; Problem Code Type: ICD-10; Not Available [facility] 3 04:10:17 Enthesop athy 84420729 Completed 201812/26/2020 Problem Code: M77.9; Problem Code Type: ICD-10; Not Available [facility] 3 04:10:17 Hypercal cemia 28405357 Completed 201401/02/2023 Not Available [facility] 3 04:10:18 Lung field abnormal 888373622 Completed 201607/29/2017 Problem Code: R91.8; Problem Code Type: ICD-10; Not Available [facility] 3 04:10:18 Insomnia 826286182 Completed 201906/06/2021 Problem Code: F51.09; Problem Code Type: ICD-10; Not Available [facility] 3 04:10:18 Disorder of lung 69391323 Completed 201710/23/2022 Problem Code: J98.4; Problem Code Type: ICD-10; Not Available [facility] 3 04:10:18 Type 2 diabetes mellitus without complica tion 027017367 Completed 201301/02/2023 Problem Code: E11.9; Problem Code Type: ICD-10; Not Available [facility] 3 04:10:19 Pain of left shoulder joint [id number] Completed 201406/06/2021 Problem Code: M25.512; Problem Code Type: ICD-10; Not Available [facility] 3 04:10:19 Screenin g for osteopor osis Completed 201602/11/2017 Problem Code: Z13.820; Problem Code Type: ICD-10; Not Available [facility] 3 04:10:19 Inflamed seborrhe ic keratosi s [id number] Completed 201910/23/2022 Problem Code: L82.0; Problem Code Type: ICD-10; Not Available [facility] 3 04:10:20 Disorder of brain 74592944 Completed 202103/05/2022 Problem Code: G93.40; Problem Code Type: ICD-10; Not Available [facility] 3 04:10:20 Other idiopath ic peripher al neuropat hy NOS Completed 201301/02/2023 Not Available [facility] 3 04:10:20 Obesity 157758997 Completed 201301/02/2023 Not Available [facility] 3 04:10:20 Fatigue 35272247 Completed 201810/27/2018 Problem Code: R53.83; Problem Code Type: ICD-10; Not Available [facility] 3 04:10:21 Genitour inary symptoms 408640214 Completed 201904/04/2020 Problem Code: R39.9; Problem Code Type: ICD-10; Not Available [facility] 3 04:10:21 Benign paroxysm al position al vertigo 553199201 Completed 202001/02/2023 Problem Code: H81.10; Problem Code Type: ICD-10; Not Available [facility] 3 04:10:22 Disorder of skin and/or subcutan eous tissue 78212704 Completed 201904/04/2020 Problem Code: L98.9; Problem Code Type: ICD-10; Not Available [facility] 3 04:10:22 Osteophy te of bone 82066027435 9100 Completed 201906/28/2020 Problem Code: M25.776; Problem Code Type: ICD-10; Not Available [facility] 3 04:10:22 Gastric ulcer 310546854 Completed 201501/02/2023 Problem Code: K25.9; Problem Code Type: ICD-10; Not Available [facility] 3 04:10:22 Right side sciatica 49553622918 9101 Completed 201804/21/2019 Problem Code: M54.31; Problem Code Type: ICD-10; Not Available [facility] 3 04:10:23 Candidia sis 66371525 Completed 201308/22/2015 Problem Code: B37.9; Problem Code Type: ICD-10; Not Available [facility] 3 04:10:23 Steatosi s of liver 270003700 Completed 201302/10/2016 Problem Code: K76.0; Problem Code Type: ICD-10; Not Available [facility] 3 04:10:23 Cough 30083444 Completed 201912/26/2020 Problem Code: R05; Problem Code Type: ICD-10; Not Available [facility] 3 04:10:23 Xerostom ia 40240845 Completed 202006/06/2021 Problem Code: R68.2; Problem Code Type: ICD-10; Gail Fregosogrady rodriguez, [facility] 4 12:49:03 Candidal vulvovag initis 22380430 Completed 201301/02/2023 Problem Code: 112.1; Problem Code Type: ICD-9; Not Available [facility] 3 04:10:25 Intestin al disaccha ridase deficien cy 47420332 Completed 201301/02/2023 Problem Code: 271.3; Problem Code Type: ICD-9; Not Available [facility] 3 04:10:25 Acute bronchit is 61793856 Completed 201912/26/2020 Problem Code: J20.9; Problem Code Type: ICD-10; Not Available [facility] 3 04:10:26 Peripher al nerve disease 696448442 Completed 201301/02/2023 Not Available [facility] 3 04:10:26 Acute upper respirat ory infectio n 94529403 Completed 202205/13/2023 Problem Code: J06.9; Problem Code Type: ICD-10; MD Livan RODRIGUEZ Dr, [place] [id number] [place] [address] 4 13:45:04 Diastoli c heart failure 846100067 Active 2022 echo 03/[address] [place] [id number] [place] [address] 3 11:17:46 Chest pain 23628391 Completed 202205/13/2023 Problem Code: R07.89; Problem Code Type: ICD-10; MD Livan RODRIGUEZ Dr [facility] [address] 4 13:45:03 Aortic stenosis , non-rheu matic 964338510 Active 2022 mild 03/2023 echo MD Livan ROD[address] Dr, [place] [address] , [facility] 4 06:52:21 Senile hyperker atosis 808770895 Completed 202205/13/2023 Problem Code: L82.1; Problem Code Type: ICD-10; MD Livan RODRIGUEZ Dr, [address] 4 13:45:03 Melanocy tic nevus 675946095 Completed 202205/13/2023 Problem Code: D22.9; Problem Code Type: ICD-10; MD Livan RODRIGUEZ Dr, [address] 4 13:45:04 Incoordi nation 809681925 Completed 202205/13/2023 01/31/20 23 - Comments only - Aysha Barillas MD - neuro exam not c/w CVA; will eval further at next visit. Problem Code: R27.9; Problem Code Type: ICD-10; MD Livan RODRIGUEZ Dr, [address] 4 13:45:03 Dyspnea 887987929 Completed 202205/13/2023 Problem Code: R06.09; Problem Code Type: ICD-10; MD Livan RODRIGUEZ Dr, [address] 4 13:45:03 Chronic diarrhea 364143187 Active 2023 Gail rodriguez, [facility] 12:37:57 Drug-ind uced xerostom ia 629395877 Active [address], [address] 13:38:38 Microalb uminuric diabetic nephropa thy 954463793 Active 2023 [facility] 12:45:11 Dyspnea on exertion 84065512 Active 2023 [facility] 12:37:57 Angular cheiliti s 005244725 Active 2023 [facility] 12:36:56 Xerostom ia 52705392 Active 2023 [facility] 12:49:03 History of adenomat ous polyp of colon 299290431 Active 2020 [facility] 12:43:44 Sialoade nitis 59724592 Completed 202308/09/[address], [place], [address] , [facility] 16:48:36 Low back pain 518570378 Active 2023 Problem Code: M54.5; Problem Code Type: ICD-10; AAMDEO GLEASON, [employer] [address], [place], [address] , [facility] 14:31:55 Chest pain on exertion 79593736 Active [address], [place], [address] , [facility] 12:24:41 Always hungry 349169094 Active [address], [place], [address] , [facility] 16:38:32 Altered bowel function 30808963 Active [address], [facility] [address] [place] [address] 4 16:38:44 Atypical chest pain 979795454 Active 2023 DORIS JONES MA [facility], [facility] 4 07:31:04 Acquired thromboc ytopenia 54914113 Active [address], [address] 4 09:56:08 Actinic keratosi s 768245676 Active [address], [address] 4 13:34:57 Nodule of lung 483297370 Active 2023 probable lipoma by PET. (benign) MD Livan RODRIGUEZ Dr, [address] 4 06:49:28 Minimal cognitiv e impairme nt 076055554 Active [address], [address] 4 15:05:52 New daily persiste nt headache 04017876383 9105 Active [address], [address] 4 16:29:33 Lichen sclerosu s of vulva 045222346 Active [address], [address] 4 15:22:25 Milia 145998418 Active [address], [address] 4 15:51:39 Obstruct tyler sleep apnea syndrome 52523541 Active 2023 DORIS JONES MA null, [facility] 4 09:39:29 Atherosc lerosis Active 2023 DORIS JONES MA null, [facility] 4 09:39:44 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 MD Livan RODRIGUEZ Dr, [facility] [address] , [facility] 4 06:56:02 Vulvitis 22280990 Active [address], [facility] [address] , [facility] 4 13:20:01 Thromboc ytopenic disorder 712300364 Active [address], [facility] [address] , [facility] 4 13:23:28 Decompen sated cirrhosi s of liver 774216240 Active 2023 MAHENDRA GUZMAN [facility] [address], [facility] [address] , [facility] 4 14:23:47 Notes:Some problems listed i n Document: #[id number] could not be added to this patient's chart. Please review this document and add these problems to the patient's chart manually as needed. Problem Notes None recorded. Procedures Surgical History Date Name Laterality Status Provider Name and Address Organization Details Recorded Time 4 Cryosurgery Warts/Skin Tags completed MD Livan RODRIGUEZ Dr, [facility] [address], [facility] 10/18/2023 15:47:48 4 Cryosurgery Warts/Skin Tags completed MD Livan RODRIGUEZ Dr, [place], [address], [facility]. 10/07/2023 13:34:27 Imaging Results Imaging Date Name Status LastModified by Organiz ation Details LastModified Time 08/28/2023 EKG order tracing 12 lead completed [facility] (Lab) [address] [place] [address], [address], 09/03/2023 13:49:06 09/30/2023 xr chest portable or 1V completed [address] (Lab) [address] [place] [address], [address], 10/01/2023 16:07:13 10/01/2023 CT angio chest ABD pelvis W IV contrst* completed [address] (Lab) [address] [place] [address], [address], 10/01/2023 16:07:14 09/30/2023 EKG order tracing 12 lead completed [address] (Lab) [address] [place] [address], [address], 10/01/2023 16:07:13 10/02/2023 EKG order tracing 12 lead completed [address] (Lab) [address] [place] [address], [address], 10/18/2023 07:53:24 10/24/2023 PET-CT, skull base to mid-thigh scan completed [email or web address] [place], [address], 10/29/2023 13:01:17 11/13/2023 EKG order tracing 12 lead completed [address] (Lab) [address] [place] [address], [address], 11/15/2023 12:39:20 Procedure Notes None recorded. Medical Equipment None Reported. Allergies Allergen ID Allergen Name Allergen Category Reaction Reaction Severity Criticality Documentation Date Start Date Code Code System Note Provider Name and Address Organization Details Recorded Time 05954 erythromy laura medicatio n other moderate Not available 02/15/20232013 4053 RxNorm stoma ch pain [facility] 4 12:53:11 85687 Bactrim medicatio n itching moderate Not available 08/01/20232013 68206 9 RxNorm itchy skin [facility] 4 12:51:33 87734 codeine medicatio n itching moderate Not available 08/01/20232013 2670 RxNorm itchy , paran oid [facility] 4 12:52:07 60134 Demerol medicatio n other moderate Not available 08/01/20232013 15433 1 RxNorm can' t sleep [facility] 4 12:52:55 44745 simvastat in medicatio n nausea moderate Not available 08/01/20232013 93298 RxNorm (ALLS TATIN S) [facility] 4 12:53:40 27487 Trulicity medicatio n vomiting moderate low 09/25/2023 97889 96 RxNorm AYSHA BARILLAS MD [address], [place], [address] [place] [address] 4 12:57:22 Medications Name Sig Start Date [...] mouth once a day 11/[address] Not Available Not Available Not Available amitripty [...] once a day 12/[address] [place], [place] [facility], after August 2022 OV Not Available Not [...] e Nataliia Pen Needle 32 gauge x 32 Use 1 needle subcutan eously twice a [...] Relief 50 mcg/actua tion nasal spray,moraima pension Beulah 1 spray into both nostrils once a [...] Available Vitals Date Recorded Body height Body mass index (BMI) Body weight Body temperature Oxygen saturation Oxygen saturation in Arterial blood by Pulse oximetry Heart rate Systolic blood pressure Diastolic blood pressure Provider Name and Address Organization Details Last Updated DateTime 4 154.94 cm 26.1 kg/m2 87285.7 5 g 97.9 [degF] 96 % 96 % 86 /min 104 mm[Hg] 52 mm[Hg] JAMEY PRETTY [place] - [facility]. 4 16:08:33 Date Recorded Body height Body mass index (BMI) Body weight Body temperature Oxygen saturation Oxygen saturation in Arterial blood by Pulse oximetry Heart rate Systolic blood pressure Diastolic blood pressure Provider Name and Address Organization Details Last Updated DateTime 4 154.94 cm 25.7 kg/m2 84575.5 6 g 97.7 [degF] 97 % 97 % 92 /min 136 mm[Hg] 68 mm[Hg] Hailey Reyes LPN [facility]. 4 13:02:05 Date Recorded Body height Body mass index (BMI) Body weight Body temperature Oxygen saturation Oxygen saturation in Arterial blood by Pulse oximetry Heart rate Systolic blood pressure Diastolic blood pressure Provider Name and Address Organization Details Last Updated DateTime 4 154.94 cm 25.5 kg/m2 24417.2 5 g 97.6 [degF] 96 % 96 % 83 /min 102 mm[Hg] 58 mm[Hg] Hailey Reyes LPN [facility], [facility] 4 14:58:55 Date Recorded Body height Body temperature Oxygen saturation Oxygen saturation in Arterial blood by Pulse oximetry Heart rate Systolic blood pressure Diastolic blood pressure Provider Name and Address Organization Details Last Updated DateTime 4 154.94 cm 97.2 [degF] 96 % 96 % 84 /min 92 mm[Hg] 58 mm[Hg] ABDIRAHMAN MURRY RN [facility], [facility] 4 10:43:51 Date Recorded Body height Body mass index (BMI) Body weight Body temperature Oxygen saturation Oxygen saturation in Arterial blood by Pulse oximetry Heart rate Systolic blood pressure Diastolic blood pressure Provider Name and Address Organization Details Last Updated DateTime 4 154.94 cm 25.5 kg/m2 43769.9 7 g 97.6 [degF] 94 % 94 % 75 /min 102 mm[Hg] 52 mm[Hg] Hailey Reyes LPN [facility], [facility] 4 11:34:16 Date Recorded Body height Body mass index (BMI) Body weight Body temperature Oxygen saturation Oxygen saturation in Arterial blood by Pulse oximetry Heart rate Systolic blood pressure Diastolic blood pressure Provider Name and Address Organization Details Last Updated DateTime 4 154.94 cm 26.7 kg/m2 29608.9 6 g 97.7 [degF] 94 % 94 % 83 /min 118 mm[Hg] 60 mm[Hg] Hailey Reyes LPN [facility], [facility] 4 13:39:15 Social History Question Answer Notes LastModified by Organizat ion Details LastModified Time Tobacco Smoking Status Never Smoker GIOVANNA ASIF, [place] - [facility]. 03/18/2023 15:57:23 Would You Say That, In General, Your Health Is Good [email or web address] Information not available 08/09/2023 How Often Does Anyone, Including Family, Physically Hurt You? Never [email or web address] Information not available 08/09/2023 How Often Does Anyone, Including Family, Insult Or Talk Down To You? Rarely [email or web address] Information no t available 08/09/2023 How Often Does Anyone, Including Family, Threaten You With Harm? Never [email or web address] Information not available 08/09/2023 How Often Does Anyone, Including Family, Scream Or Curse At You? Never [email or web address] Information not available 08/09/2023 Within The Past 12 Months, You Worried That Your Food Would Run Out Before You Got Money To Buy More. Never True [email or web address] Information n ot available 08/09/2023 Within The Past 12 Months, The Food You Bought Just Didn't Last And You Didn't Have Money To Get More. Never True Information not available 08/09/2023 How Hard Is It For You To Pay For The Very Basics Like Food, Housing, Medical Care, And Heating? Would You Say It Is: Somewhat Hard [email or web address] Information not available 08/09/2023 In The Past [...] (including Smoking, Vaping, Dabbing, Or Edibles)? Never Information not available 08/09/2023 How Often In The Past Year Have You Used Prescription Medications That Were Not Prescribed To You? Never Information not available 08/09/2023 How Often In The Past Year Have You Taken Your Own Prescription Medication More Than The Way It Was Prescribed Or For Different Reasons Than Its Intended Purpose? Never [email or web address] Information not available 08/09/2023 How Often In The Past Year Have You Used Other Drugs (for Example, Heroin, Cocaine, Meth, Salvia, Inhalants)? Never [email or web address] Information not available 08/09/2023 Have You Ever Used IV Drugs? No [email or web address] Information not available 08/09/2023 Date Of Most Recent SBINS 08/09/2023 Information not available 08/09/2023 What Was The Date Of Your Most Recent Tobacco Screening? 10/18/2023 [email or web address] Information n ot available 10/18/2023 Has Tobacco Cessation Counseling Been Provided? No [email or web address] Information not available 10/25/2023 Do You Or Have You Ever Used Any Other Forms Of Tobacco Or Nicotine? No [email or web address] Information not available 03/18/2023 Sex: Female Functional Status None recorded. Mental Status None recorded. Family History Relationship Description Onset Age of this Age Resolved Age Notes Mother Family history of ac sánchez medical disorder Notes:*Problem: Mother: d. 6 7 , cirrhosis, non ETOH Father: d. [place], acute hepatitis Sisters: x1, cirrhosis, non ETOH, [...] preservative free, adsorbed 12/28/2016 completed Not Available [facility] 02/15/2023 05:29:32 Hep A-Hep B 05/11/2016 completed Not Available [facility] 02/15/2023 05:29:32 Hep A-Hep B 02/24/2016 completed Not Available [facility] 02/15/2023 05:29:32 Tdap 07/01/2006 completed Not Available [facility] 05:29:32 Pneumococcal conjugate PCV 13 05/11/2016 completed Not Available [facility] 02/15/2023 05:29:32 Td(adult) unspecified formulation 02/07/1996 completed Not Available [facility] 02/15/2023 05:29:32 Influenza, split virus, trivalent, preservative 12/30/2015 completed Not Available [facility] 02/15/2023 05:29:32 Influenza, split virus, trivalent, preservative 02/21/2015 completed Not Available [facility] 02/15/2023 05:29:32 Influenza, split virus, quadrivalent, PF 01/03/2012 completed Not Available [facility] 02/15/2023 05:29:33 Influenza, split virus, quadrivalent, PF 01/19/2013 completed Not Available [facility] 02/15/2023 05:29:33 Influenza, split virus, quadrivalent, preservative 12/28/2016 completed Not Available [facility] 02/15/2023 05:29:33 Influenza, split virus, quadrivalent, preservative 01/28/2018 completed Not Available [facility] 02/15/2023 05:29:33 Influenza, high-dose, quadrivalent, PF 12/26/2020 completed Not Available [facility] 02/15/2023 05:29:33 COVID-19, mRNA, LNP-S, PF, 100 mcg/0.5mL dose or 50 mcg/0.25mL dose 05/25/2020 completed Not Available [facility] 02/15/2023 05:29:33 COVID-19, mRNA, LNP-S, PF, 100 mcg/0.5mL dose or 50 mcg/0.25mL dose 2020 completed Not Available [facility] 02/15/2023 05:29:33 COVID-19, mRNA, LNP-S, PF, 100 mcg/0.5mL dose or 50 mcg/0.25mL dose 09/05/2021 completed Not Available [facility] 02/15/2023 05:29:33 SARS-COV-2 (COVID-19) vaccine, UNSPECIFIED 02/27/2021 completed Not Available [facility] 02/15/2023 05:29:34 COVID-19, mRNA, LNP-S, bivalent, PF, 30 mcg/0.3 mL dose 09/19/2022 completed Not Available [facility] 02/16/20 05:29:34 COVID-19, mRNA, LNP-S, bivalent, PF, 30 mcg/0.3 mL dose 03/05/2022 completed Not Available [facility] 02/16/20 05:29:34 pneumococcal polysaccharide PPV23 07/01/2006 completed Not Available [facility] 2022 05:29:34 pneumococcal polysaccharide PPV23 02/21/2015 completed Not Available [facility] 2022 05:29:34 pneumococcal polysaccharide PPV23 03/11/2001 completed Not Available [facility] 2022 05:29:34 Hep B, adult 09/28/2016 completed Not Available [facility] 02/15/2023 05:29:34 influenza, unspecified formulation 01/12/2008 completed Not Available [facility] 02/15/2023 05:29:34 influenza, unspecified formulation 02/01/2014 completed Not Available [facility] 02/15/2023 05:29:34 influenza, unspecified formulation 02/12/2019 completed Not Available [facility] 02/15/2023 05:29:35 Influenza, high-dose, quadrivalent, PF 01/24/2023 completed Not Available [facility] 04/19/2023 05:31:38 COVID-19, mRNA, LNP-S, PF, mayito-sucrose, 30 mcg/0.3 mL 01/30/2023 completed Not Available [facility] 04/19/2023 05:31:38 Past Encounters Encounter ID Performer Location Encounter Start Date Encounter Closed Date Diagnosis/Indication Diagnosis SNOMED-CT Code [id number] MARY PRETTY MA [address] [address] 03/18/2023 15:41:08 03/18/2023 16:50:55 Acute upper respiratory infection 89443714 [id number] AYSHA BARILLAS MD [address] [address] 05/13/2023 12:43:04 05/13/2023 13:39:15 Diastolic heart failure 827218149 Decompensa nate cirrhosis of liver 895977177 Neuropathy due to type 2 diabetes mellitus 64099450414755 6 Chronic diarrhea 9905367 09 Drug-induc ed xerostomia 595269525 Restless legs 32998040 Psychophys iologic insomnia 937276981 [id number] AYSHA BARILLAS MD [address] [address] 07/12/2023 14:13:20 07/12/2023 14:46:20 Angular cheilitis 237622055 Xerostomia 90003603 [id number] AYSHA BARILLAS MD [address] [address] 08/07/2023 15:48:14 08/07/2023 16:41:31 Sialoadenitis 37044975 Low back pain 593380201 [id number] AYSHA BARILLAS MD [address] [address] 08/09/2023 11:39:31 08/09/2023 12:32:25 Neuropathy due to type 2 diabetes mellitus 99068120116376 6 Xerostomia 51666364 Decompensa nate cirrhosis of liver 331250897 Chest pain on exertion 88298423 Esophageal varices without bleeding 36915113 Psychophys iologic insomnia 881603496 [id number] AYSHA BARILLAS MD [address] [address] 08/27/2023 13:10:54 08/27/2023 14:44:36 Xerostomia 99716565 Psychophys iologic insomnia 797640950 Neuropathy due to type 2 diabetes mellitus 81294221172946 6 Benign par oxysmal positional vertigo 060603748 [id number] AYSHA BARILLAS MD [address] [address] 09/24/2023 15:53:59 09/24/2023 16:41:26 Always hungry 578329274 Altered reuben wel function 88773524 History of adenomatous polyp of colon 491853418 [id number] AYSHA BARILLAS MD [address] [address] 10/07/2023 12:38:43 10/07/2023 13:32:27 Actinic keratosis 381197061 Acquired thrombocytopenia 68546144 Nodule of lung 343860186 Chest pain on exertion 76913300 Minimal co gnitive impairment 975760316 New daily persistent headache 78833049188666 5 [id number] AYSHA BARILLAS MD [address] [place] [address] 10/18/2023 14:36:15 10/18/2023 15:35:43 Restless legs 33120690 Lichen scl erosus of vulva 671346639 Milia 040435716 Actinic keratosis 535427 774 [id number] AYSHA BARILLAS MD [address] [address] 10/25/2023 10:28:44 10/25/2023 11:17:17 Lichen sclerosus of vulva 475625736 Eruption of vulva 153826 946 [id number] AYSHA BARILLAS MD [address] [address] 11/08/2023 11:13:01 11/08/2023 12:30:59 Nodule of lung 466065606 Lichen scl erosus of vulva 094700740 Actinic keratosis 558118 007 Xerostomia 35207066 Thrombocyt openic disorder 596883268 Restless legs 46183853 Neuropathy due to type 2 diabetes mellitus 11873158392189 6 Vulvitis 17603089 [id number] MAHENDRA GUZMAN [address] [address] 12/02/2023 13:22:05 12/02/2023 14:48:40 Decompensated cirrhosis of liver 394634967 Esophageal varices without bleeding 33261554 Atypical chest pain 1025 [address]139 Health Concerns Section Related Observation LastModified by Organization Detai ls LastModified Time None Recorded Concern Status LastModified by Organization Details LastModified Time None Recorded Advance Directives Directive None Recorded Payers Encounter Date Sequence Insurance Name Policy Number Policy Lucas Covered Member ID Lucas Member ID Guarantor Name 09/24/2023 1 [place] - PPO) [id number] Milka Corbett [id number] Milka Corbett 10/07/2023 1 [place] [id number] Milka Corbett [id number] Milka Corbett 10/18/2023 1 [place]) [id number] Milka Corbett [id number] Milka Corbett 10/25/2023 1 [place]) [id number] Milka Corbett [id number] Milka Corbett 11/08/2023 1 [place]) [id number] Milka Corbett [id number] Milka Corbett Notes Date Note Type Note Provider Name and Address Organization Details Recorded Time 09/24/2023 text/html HPI Notes: Here for change in her bowel movements. For the past few months she has had discomfort in her lower abdomen, feels like she has to strain and will pass a hard stool followed by very soft sometimes liquidy stool that is red to brown in color she has been taking an antidiarrheal medication on average about twice a week she has not tried fiber supplements or docusate she has a history of severe constipation in the past but more recently has tended to have more trouble with loose stools she has history of adenomatous polyp removed in 2010 with advised to have follow-up screening in 2016 but she declines further screenings. She denies melena or hematochezia, weight loss, other constitutional symptoms. She reports increased appetite and wonders if she should switch from Victoza to something else. Med review: She is unsure which dose of Jardiance she is taking or which metoprolol (There are 2 in her chart). AYSHA BARILLAS MD [address], [place], [id number], [facility]. 09/24/2023 16:48:44 10/07/2023 text/html HPI Notes: Here for discussion of enlarging lung nodule, discussed wastewater treatment plant chemist recommendation for diagnostic cath, and discuss headaches. She has a history of migraine headaches. Recently she has been getting bad headaches, throbbing in nature, that often start in the late afternoon and last for couple of hours. They do not respond to Tylenol. She is not aware of any aura preceding them. She denies any focal neurologic symptoms. She has a skin lesion on left upper eyelid that she tried to treat with clear fingernail gambian. It has grown in size. It is not painful. She was seen in ED a week ago for several hours of chest pain, negative cardiac eval, but does report exertional chest pain when she goes upstairs that resolves with rest. She denied positive response to nitroglycerin although Dr. Ortega got a different history in that regard. MD [address], [place], [id number], [facility]. 10/07/2023 16:32:50 10/18/2023 text/html HPI Notes: Patie nt here with several skin concerns. She has painless weight bumps on her face that have appeared relatively recently. The lesion on her left eyelid has gotten smaller since last treatment but is still present. She has localized discomfort at the vaginal introitus and perineal region. It ellison at this site when she pees, but she does not feel like she has a bladder infection. She tried an [id number]-[id number] yeast cream without improvement. Otku-alq-amqiehx hydrocortisone cream has helped some. Symptoms started about 2 weeks ago. She started on Jardiance about 2 months ago. 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 She feels that her balance has improved slightly since last visit. She is generally feeling well. No cough or dyspnea. Her feet continue to bother her at night, they feel jumpy, and she has found she needs 4 of the 0.125 mg pramipexole tabs to sleep well. MD [address], [place], [id number], [facility]. 10/18/2023 15:53:28 10/25/2023 text/html HPI Notes: Saw S EM a week ago. She feels that her vulva rash is worse. She can't use soap - is just using warm water. She looked at the rash - is bright red with bumps. Is painful, and itchy. Last week was Rx clobetasol. LISA BABB, [employer]- [address], [place], [id number], [facility]. 10/25/2023 17:11:33 11/08/2023 text/html HPI Notes: Pt pr esents for F/U of vulvovaginal redness, itching and irritation x 2 weeks. Results from vaginal swab at last visit (10/24) pos for yeast. Pt is using topical clotrimazole cream (from urgent care visit 11/02) with only slight improvement. Pt c/o increase frequency of chest tightness mostly brought on by exertional activity but recently had an episode of CP from loading her dishes into the automatic glove former which was relieved by approx 20 min of rest. Pt has SL nitro which she uses appropriately q 5 min x3 for CP PRN. Pt was brought to the ED for angina (approx 1 month ago) but did not require hospital admission. Pt has a cardiology F/U next week w Dr Ortega and will plan to have cardiac cath procedure pending lab results (chronic low platelets 88 on last check). Pt has h/o T2DM, microalbuminuria, atrophic vaginitis. A1C 6.6 today. FG 130-170. Out of Victoza x 2 wks d/t supply issues. AYSHA BARILLAS MD [address], [place], [id number], [facility], [facility]. 11/08/2023 13:24:20 OBGyn Episode No OBEpisode recorded.
--- OUTSIDE RECORDS SUMMARY | 2023-12-02 18:32 | XMS_ITS | Continuity of Care Document ---
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 Plan of Treatment Reminders Order Date Submit Date Provider Last Modified By Organization Details Last Modified Time Details Appointments Acute 30 2023 01:30P M Not available Not available Not available Nurse Visit 20 2023 05:00P M Not available Not available Not available Follow Up 30 2023 11:30A M Not available Not available Not available Lab hemoglobi n A1C, fingersti ck [id number] [place] [address], [address] [place] [address], [address], 11/08/2023 16:08:27 Referral None recorded. Procedures None recorded. Surgeries None recorded. Imaging None recorded. Medication Orders None recorded. Patient TargetsNo targets recorded. Patient InstructionsNo instructions recorded. Reason for Referral Physical Therapist Referral for Vertigo referral made at patient's request Referring Physician: Rupal Barillas Family [facility], Encounter Date: 08/20/2023 pt with compensated cirrhosi s with chronic thrombocytopenia, may need cardiac stent and cards (Dr. Ortega) concerned whether she could tolerate dual anti-PLT agents. Pls eval. Semi-urgent. Referring Physician: Family Saqib Rodriguez, Encounter Date: 10/07/2023 Results Created Date Observation Date Name Description Value Unit Range Abnormal Flag LastModifiedBy Organization Detail LastModifiedTime 11/08/19 24 11/08/2023 hemog lobin A1C, finge rstic k hemoglobin A1C 6.6 % <5.7 Not Available [address], [place], [address], 11/08/2023 12:32:54 10/17/19 24 10/02/2023 EKG order yony ng 12 lead [facility] [place] [id number] EKG TRANSC RIPTIO N REPORT _ Accoun t: Access ion: Admit: StayTy pe: [id number] [facility] Observ ation: Order ID: Submit nate: David aly Provid er: 2023 09:52 [id number] HENRRY RENEE _ [place] [id number] [facility] Cardio logy Test Date: 10-01 Pat Name: CRISTELVICTORIA Khan Depart ment: Cardio logy Clinic Patien t ID: [id number] Room: Gender : Yue Reardon perri: [facility] : [birth year] Reques nate By: HENRRY Mcdaniels Order Number : [id number] Kelby mcdaniels MD: Jung Corona Measur ements Interv als [place] Rate: 77 P: 61 MS: 194 QRS: -21 QRSD: 86 T: 0 QT: 394 QTc: 445 Interp retive Statem ents Normal sinus rhythm Compar ed to ECG 2023 22:33: 49 No signif icant change s Electr onical ly Signed On 15:33: 04 EDT by Jung mendez[address] [place] [address] (Lab) [address] [facility], [place], [address], 10/18/2023 07:53:24 10/24/19 24 10/24/2023 PET-C T, skull base to mid-t high scan No observ ation record ed. [email or web address] [address] , [place], [address], 10/29/2023 13:01:17 11/14/19 24 11/13/2023 EKG order yony aly 12 lead [facility] [place] [address] EKG TRANSC RIPTIO N REPORT _ Accoun t: Access ion: Admit: StayTy pe: [id number] 11/13/19 24 [facility] Observ ation: Order ID: Submit nate: David aly Provid er: 2023 09:24 [id number] HENRRY RENEE _ [place] [id number] [facility] Cardio logy Test Date: 11-12 Pat Name: KAYLEE Khan Depart ment: Cardio logy Clinic Evelyn t ID: [id number] Room: Gender : F Techni perri: [facility] : 1941-0 3-17 Reques nate By: HENRRY Mcdaniels Order Number : [id number] Kelby mcdaniels MD: Henrry Ortega Measur ements Interv als [place] Rate: 75 P: 70 MS: 204 QRS: -19 QRSD: 88 T: 0 QT: 404 QTc: 451 Interp retive Statem ents Normal sinus rhythm Low voltag e QRS Compar ed to ECG 2023 09:52: 35 Low QRS voltag e now presen t Electr onical ly Signed On 11-14-19 16:49: 58 EDT by Henrry Ortega [address] (Lab) [address] [place] [address], [address], 11/15/2023 12:39:20 Result Notes None recorded. Problems Name Status Onset Date Resolution Date Notes Provider Name and Address Organization Details Recorded Time Essential hypertension Completed 201305/13/2023 Problem Code: I10; Problem Code Type: ICD-10; MD Livan [address], [place], [address] , [facility] 4 13:45:04 Migraine Active 2013 [facility] 4 12:45:27 History of disorder of digestive system Completed 201305/13/2023 Problem Code: Z87.19; Problem Code Type: ICD-10; MD Livan [address], [place], [address] , [facility] 4 13:45:04 Restless legs Active 2013 Gail rodriguez, [facility] 4 12:48:18 Disorder of nervous system due to type 2 diabetes mellitus Completed 201305/13/2023 04/27/2019 - Comments only - Liana Boles - - Increase metformin to 1000 mg BID - slowly increase (whole tab at night, half tab in am for a couple weeks, then 1000 mg BID), call if unable to tolerate dose r/t diarrhea - Check blood sugars every morning (goal <130) and every evening (goal <200) - Will get back to diabetic diet and exercise - If unable to tolerate metformin, can try increasing glipizide or adding a non-injectabl e medication like Invokana Problem Code: E11.49; Problem Code Type: ICD-10; MD Livan RODR[address]UEZ Dr, [facility] [address] , [facility] 4 13:45:04 Allergic rhinitis Completed 201305/13/2023 Problem Code: J30.9; Problem Code Type: ICD-10; MD Livan R[address], [facility] [address] 4 13:45:04 Mixed hyperlipidemi a Active 2013 [facility] 4 12:45:48 Neuropathy due to type 2 diabetes mellitus [facility] 4 12:46:16 Intolerance to lactose Completed 201305/13/2023 Problem Code: E73.9; Problem Code Type: ICD-10; MD Livan RODR[address]UEZ Dr, [facility] [address] , [facility] 4 13:45:04 Heart murmur Active [address], [facility] [address] , [facility] 4 06:52:52 History of malignant neoplasm of bladder Active 2013, recurrence 2008, Dr. Boykin, chemo instillation, straight caths [facility] 4 12:43:10 History of nutritional disorder Completed 201405/13/[address], [facility] [address] , [facility] 4 13:45:04 Irritable bowel syndrome Active 2014 Gail rodriguez, [facility] 4 12:45:06 Eczema Active 2014 Gail rodriguez, [facility] 4 12:38:10 Hernia of abdominal cavity Active 2015 [facility] 4 12:41:15 Cirrhosis of liver Completed 201505/13/2023 09/22/2019 - Comments only - Nat Bryant M.D. - Has gained some weight, and possibly has ascites, although I have never examined her before. Follow-up as planned tomorrow for imaging, labs, and specialist appointment at [facility]. Problem Code: K74.69; Problem Code Type: ICD-10; MD Livan [address], [place], [address] , [facility] 4 13:45:04 History of urinary tract infection Completed 201505/13/2023 08/03/2015 - Comments only - Raimundo Mascorro - No signs of pyelo (fever, flank pain, nausea). History of bladder cancer, self caths. Urine dip + for blood, nitrites, leuks. Send for culture. Start cipro BID. Order for terazol PRN for VCC, nystatin susp for thrush. Pyridum for analgesia. Educated about need to continue both Abx for different tooth and UTI organism coverage, symptoms of complication or non-resolutio n, continue PO fluids. F/u PRN or for worsening or non-resolutio n of UTI. Problem Code: Z87.440; Problem Code Type: ICD-10; MD Livan R[address], [place], [address] , [facility] 4 13:45:04 Screening for malignant neoplasm of breast Completed 201505/13/2023 Problem Code: Z12.39; Problem Code Type: ICD-10; MD Livan ROD[address]UE[address] Dr, [facility] [address] , [facility], [facility] 4 13:45:04 Candidiasis of vagina Completed 201505/13/2023 Problem Code: B37.3; Problem Code Type: ICD-10; MD Livan RODR[address]UE[address] Dr, [facility] [address] , [facility] 4 13:45:04 Portal hypertension Active 2015 no ascites or encephalopath y, EGD 2015 (gastric ulcer) [facility] 4 12:47:45 Genitourinary symptoms Completed 201504/17/2016 Problem Code: R39.89; Problem Code Type: ICD-10; Not Available [facility] 3 04:10:10 Screening for malignant neoplasm of colon Completed 201605/13/2023 Problem Code: Z12.11; Problem Code Type: ICD-10; MD Livan ROD[address] Dr, [facility] [address] , [facility] 4 13:45:04 Pneumonia Completed 201602/15/2017 02/11/2017 - Improved - Mallory Nial DOCUMENT IMAGING MANAGER - s/p tx with azithromycin pt significantly improved RTC if sx worsen/persis t Problem Code: J18.9; Problem Code Type: ICD-10; Not Available [facility] 3 04:10:10 Orthostatic hypotension Active 2017 Gail rodriguez, [facility]. 4 12:46:41 Esophageal varices without bleeding Active 2018 small endoscopy 2019 [facility] 4 12:39:42 Hepatic failure Completed 201805/13/2023 Problem Code: K72.90; Problem Code Type: ICD-10; MD Livan RODR[address]UE[address] Dr, [facility] [address] , [facility] 4 13:45:04 Acute upper respiratory infection Completed 201811/08/2018 Problem Code: J06.9; Problem Code Type: ICD-10; MD Livan [address], [place], [address] , [facility] 4 13:45:04 Proteinuria Completed 201805/13/2023 Problem Code: R80.9; Problem Code Type: ICD-10; MD Livan [address], [place], [address] , [facility] 4 13:45:04 Hyperlipidemi a Active 2018 [facility] 4 12:44:49 Gastroesophag eal reflux disease without esophagitis Active 2019 Gail Lavern rodriguez, [facility] 4 12:39:54 Urinary tract infectious disease Completed 201909/29/2019 09/22/2019 - Comments only - Nat Bryant M.D. - UA positive for leuks, blood, nitrites. Unfortunately , was not able to provide large enough sample to send for culture. Urine culture from recent hospitalizati on showed pansensitive E. coli, so we will treat as they did with cephalexin. Instructed her to call with worsening or persistence. Problem Code: N39.0; Problem Code Type: ICD-10; Not Available [facility] 3 04:10:12 Nervous system and sense organ diseases Completed 202005/13/[address], [place], [address] , [facility] 4 13:45:04 Fall on or from stairs or steps Completed 202005/27/2020 Problem Code: W10.9xxA; Problem Code Type: ICD-10; Not Available [facility] 3 04:10:12 Knee joint effusion Completed 202006/06/2020 Problem Code: M25.469; Problem Code Type: ICD-10; Not Available [facility] 3 04:10:13 Low back pain Completed 202006/20/2020 Problem Code: M54.5; Problem Code Type: ICD-10; AMADEO GLEASON, TRANSPORTATION ENGINEER [address], [place], [address] , [facility] 4 14:31:55 Dysuria Completed 202009/03/2020 Problem Code: R30.0; Problem Code Type: ICD-10; Not Available [facility] 3 04:10:13 Psychophysiol ogic insomnia Active 2020 Insomnia, chronic Gail Puckett [facility] 4 12:48:07 Dizziness and giddiness Completed 202010/31/2020 Problem Code: R42; Problem Code Type: ICD-10; Not Available [facility] 3 04:10:14 [facility] 4 12:37:19 Urinary tract infectious disease Completed 202003/03/2021 Problem Code: N39.0; Problem Code Type: ICD-10; Not Available [facility] 3 04:10:14 Disorder of hematopoietic structure Completed 202105/13/2023 Problem Code: D75.89; Problem Code Type: ICD-10; MD Livan [address], [place], [address] , [facility] 4 13:45:04 Tension-type headache Completed 202105/13/2023 Problem Code: G44.209; Problem Code Type: ICD-10; MD Livan [address], [place], [address] , [facility] 4 13:45:04 Acute conjunctiviti s of left eye Completed 202112/19/2021 12/12/2021 - Comments only - Nat Bryant M.D. - Likely bacterial. Rx sent for e-mycin ointment. Call for reevaluation if worsening, or no better w/in 48 hours. Problem Code: H10.32; Problem Code Type: ICD-10; Not Available [facility] 3 04:10:15 Cerebrovascul ar disease Active 2021 [facility] 4 12:37:49 Urinary tract infectious disease Completed 202208/28/2022 Problem Code: N39.0; Problem Code Type: ICD-10; Not Available [facility] 3 04:10:15 Pneumonia Completed 202211/08/2022 10/29/2022 - Improved - Rupal Barillas MD - But with persistent evidence of congestion in right lung. Advised chest x-ray in a couple of weeks to evaluate for any persistent abnormalities requiring further follow-up. She has not had imaging yet with this infection. Problem Code: J18.9; Problem Code Type: ICD-10; Not Available [facility] 3 04:10:15 Edema Active 2022 Peripheral edema [facility] 4 12:38:42 Castillo's esophagus Active 2022 [facility] 4 12:37:33 Candidiasis of skin Completed 201810/23/2022 Problem Code: B37.2; Problem Code Type: ICD-10; Not Available [facility] 3 04:10:16 Acute atopic conjunctiviti s Completed 201804/21/2019 Problem Code: H10.10; Problem Code Type: ICD-10; Not Available [facility] 3 04:10:16 Constipation Completed 201301/02/2023 Problem Code: K59.00; Problem Code Type: ICD-10; Not Available [facility] 3 04:10:16 Cough Completed 202201/02/2023 Problem Code: R05.8; Problem Code Type: ICD-10; Not Available [facility] 3 04:10:16 Hypertensive disorder Completed 201301/02/2023 Not Available [facility] 3 04:10:17 Neoplasm of urinary bladder Completed 201301/02/2023 Problem Code: D49.4; Problem Code Type: ICD-10; Not Available [facility] 3 04:10:17 Enthesopathy Completed 201812/26/2020 Problem Code: M77.9; Problem Code Type: ICD-10; Not Available [facility] 3 04:10:17 Hypercalcemia Completed 201401/02/2023 Not Available [facility] 3 04:10:18 Lung field abnormal Completed 201607/29/2017 Problem Code: R91.8; Problem Code Type: ICD-10; Not Available [facility] 3 04:10:18 Insomnia Completed 201906/06/2021 Problem Code: F51.09; Problem Code Type: ICD-10; Not Available [facility] 3 04:10:18 Disorder of lung Completed 201710/23/2022 Problem Code: J98.4; Problem Code Type: ICD-10; Not Available [facility] 3 04:10:18 Type 2 diabetes mellitus without complication Completed 201301/02/2023 Problem Code: E11.9; Problem Code Type: ICD-10; Not Available [facility] 3 04:10:19 Pain of left shoulder joint Completed 201406/06/2021 Problem Code: M25.512; Problem Code Type: ICD-10; Not Available [facility] 3 04:10:19 Screening for osteoporosis Completed 201602/11/2017 Problem Code: Z13.820; Problem Code Type: ICD-10; Not Available [facility] 3 04:10:19 Inflamed seborrheic keratosis Completed 201910/23/2022 Problem Code: L82.0; Problem Code Type: ICD-10; Not Available [facility] 3 04:10:20 Disorder of brain Completed 202103/05/2022 Problem Code: G93.40; Problem Code Type: ICD-10; Not Available [facility] 3 04:10:20 Other idiopathic peripheral neuropathy NOS Completed 201301/02/2023 Not Available [facility] 3 04:10:20 Obesity Completed 201301/02/2023 Not Available [facility] 3 04:10:20 Fatigue Completed 201810/27/2018 Problem Code: R53.83; Problem Code Type: ICD-10; Not Available [facility] 3 04:10:21 Genitourinary symptoms Completed 201904/04/2020 Problem Code: R39.9; Problem Code Type: ICD-10; Not Available [facility] 3 04:10:21 Benign paroxysmal positional vertigo Completed 202001/02/2023 Problem Code: H81.10; Problem Code Type: ICD-10; Not Available [facility] 3 04:10:22 Disorder of skin and/or subcutaneous tissue Completed 201904/04/2020 Problem Code: L98.9; Problem Code Type: ICD-10; Not Available [facility] 3 04:10:22 Osteophyte of bone Completed 201906/28/2020 Problem Code: M25.776; Problem Code Type: ICD-10; Not Available [facility] 3 04:10:22 Gastric ulcer Completed 201501/02/2023 Problem Code: K25.9; Problem Code Type: ICD-10; Not Available [facility] 3 04:10:22 Right side sciatica Completed 201804/21/2019 Problem Code: M54.31; Problem Code Type: ICD-10; Not Available [facility] 3 04:10:23 Candidiasis Completed 201308/22/2015 Problem Code: B37.9; Problem Code Type: ICD-10; Not Available [facility] 3 04:10:23 Steatosis of liver Completed 201302/10/2016 Problem Code: K76.0; Problem Code Type: ICD-10; Not Available [facility] 3 04:10:23 Cough Completed 201912/26/2020 Problem Code: R05; Problem Code Type: ICD-10; Not Available [facility] 3 04:10:23 Xerostomia Completed 202006/06/2021 Problem Code: R68.2; Problem Code Type: ICD-10; Gail rodriguez, [facility] 4 12:49:03 Candidal vulvovaginiti s Completed 201301/02/2023 Problem Code: 112.1; Problem Code Type: ICD-9; Not Available [facility] 3 04:10:25 Intestinal disaccharidas e deficiency Completed 201301/02/2023 Problem Code: 271.3; Problem Code Type: ICD-9; Not Available [facility] 3 04:10:25 Acute bronchitis Completed 201912/26/2020 Problem Code: J20.9; Problem Code Type: ICD-10; Not Available [facility] 3 04:10:26 Peripheral nerve disease Completed 201301/02/2023 Not Available [facility] 3 04:10:26 Acute upper respiratory infection Completed 202205/13/2023 Problem Code: J06.9; Problem Code Type: ICD-10; MD Livan [address], [place], [address] , [facility] 4 13:45:04 Diastolic heart failure Active 2022 echo 03/[address], [place], [address] , [facility] 3 11:17:46 Chest pain Completed 202205/13/2023 Problem Code: R07.89; Problem Code Type: ICD-10; MD Livan RODRIGUEZ Dr, [address] 4 13:45:03 Aortic stenosis, non-rheumatic Active 2022 mild 03/2023 echo MD Livan RODRIGUEZ Dr, [address] 06:52:21 Senile hyperkeratosi s Completed 202205/13/2023 Problem Code: L82.1; Problem Code Type: ICD-10; MD Livan RODRIGUEZ Dr, [address] 13:45:03 Melanocytic nevus Completed 202205/13/2023 Problem Code: D22.9; Problem Code Type: ICD-10; MD Livan RODRIGUEZ Dr, [address] 13:45:04 Incoordinatio n Completed 202205/13/2023 01/30/2023 - Comments only - Rupal Barillas MD - neuro exam not c/w CVA; will eval further at next visit. Problem Code: R27.9; Problem Code Type: ICD-10; MD Livan RODRIGUEZ Dr, [address] 4 13:45:03 Dyspnea Completed 202205/13/2023 Problem Code: R06.09; Problem Code Type: ICD-10; MD Livan RODRIGUEZ Dr, [address] 4 13:45:03 Chronic diarrhea Active 2023 Gail rodriguez, [facility] 04/25/202 4 12:37:57 Drug-induced xerostomia Active [address], [place], [address] , [facility] 4 13:38:38 Microalbuminu dharmesh diabetic nephropathy Active 2023 [facility], [facility] 4 12:45:11 Dyspnea on exertion Active 2023 [facility], [facility] 4 12:37:57 Angular cheilitis Active 2023 [facility], [facility] 4 12:36:56 Xerostomia Active 2023 [facility], [facility] 4 12:49:03 History of adenomatous polyp of colon Active 2020 [facility], [facility] 4 12:43:44 Sialoadenitis Completed 202308/09/[address], [place], [address] , [facility] 4 16:48:36 Low back pain Active 2023 Problem Code: M54.5; Problem Code Type: ICD-10; AMADEO VICTORINO, TRANSPORTATION ENGINEER [address], [place], [address] , [facility] 4 14:31:55 Chest pain on exertion Active [address], [place], [address] , [facility] 4 12:24:41 Always hungry Active [address], [place], [address] , [facility] 4 16:38:32 Altered bowel function Active [address], [facility] [address] , [facility] 4 16:38:44 Atypical chest pain Active 2023 DORIS JONES MA null, [facility] 4 07:31:04 Acquired thrombocytope shirlene Active [address], [facility] [address] [place] [address] 4 09:56:08 Actinic keratosis Active [address], [address] 4 13:34:57 Nodule of lung Active 2023 probable lipoma by PET. (benign) MD [address]ivan [address] Dr, [facility] [address] , [facility] 4 06:49:28 Minimal cognitive impairment Active [address], [facility] [address] [place] [address] 4 15:05:52 New daily persistent headache Active [address], [facility] [address] [place] [address] 4 16:29:33 Lichen sclerosus of vulva Active [address], [facility] [address] [place] [address] 4 15:22:25 Milia Active [address], [facility] [address] [place] [address] 4 15:51:39 Obstructive sleep apnea syndrome Active 2023 DORIS JONES MA null, [facility] 4 09:39:29 Atheroscleros is Active 2023 GIOVANNA LEIVA, [facility] 4 09:39:44 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 MD Livan RODRIGUEZ Dr, [facility] [address] , [facility] 4 06:56:02 Vulvitis Active [address], [address] 4 13:20:01 Thrombocytope lia disorder Active [address], [facility] [address] , [facility] 4 13:23:28 Decompensated cirrhosis of liver Active [address], [facility] [address] , [facility] 4 14:23:47 Notes:Some problems listed i n Document: #[id number] could not be added to this patient's chart. Please review this document and add these problems to the patient's chart manually as needed. Problem Notes None recorded. Procedures Surgical History Date Name Laterality Status Provider Name and Address Organization Details Recorded Time 4 Cryosurgery Warts/Skin Tags completed MD Livan RODRIGUEZ Dr, [facility] [address], [facility] 10/18/2023 15:47:48 Cryosurgery Warts/Skin Tags completed MD Livan RODRIGUEZ Dr, [facility] [address] [place] [address] 10/07/2023 13:34:27 Imaging Results None recorded. Procedure Notes None recorded. Medical Equipment None Reported. Allergies Allergen ID Allergen Name Allergen Category Reaction Reaction Severity Criticality Documentation Date Start Date Code Code System Note Provider Name and Address Organization Details Recorded Time 22691 erythromy laura medicatio n other moderate Not available 02/15/20232013 4053 RxNorm stoma ch pain [facility] 12:53:11 57091 Bactrim medicatio n itching moderate Not available 08/01/20232013 24425 9 RxNorm itchy skin [facility] 12:51:33 48260 codeine medicatio n itching moderate Not available 08/01/20232013 2670 RxNorm itchy , paran oid [facility] 12:52:07 03492 Demerol medicatio n other moderate Not available 08/01/20232013 29940 1 RxNorm can' t sleep [facility] 12:52:55 14704 simvastat in medicatio n nausea moderate Not available 08/01/20232013 60012 RxNorm (ALLS TATIN S) [facility] 12:53:40 03957 Trulicity medicatio n vomiting moderate low 09/25/2023 00197 96 RxNorm RUPAL BARILLAS MD [address], [place], [address] [place] [address] 12:57:22 Medications Name Sig Start Date Stop [...] once a day 12/[address] Wallis, [facility], after August 2022 OV Not Available Not [...] e Nataliia Pen Needle 32 gauge x 5/32 Use 1 needle subcutan eously twice a [...] Relief 50 mcg/actua tion nasal spray,moraima pension Savage 1 spray into both nostrils once a [...] Updated DateTime 4 154.94 cm 25.5 kg/m2 56103.9 7 g 97.6 [degF] 94 % 94 % 75 /min 102 mm[Hg] 52 mm[Hg] Hailey Reyes LPN [facility] 4 11:34:16 Social History Question Answer Notes LastModified by Organizat ion Details LastModified Time Tobacco Smoking Status Never Smoker GIOVANNA ASIF, [facility] 03/18/2023 15:57:23 Would You Say That, In General, Your Health Is Good [email or web address] Information not available 08/09/2023 How Often Does Anyone, Including Family, Physically Hurt You? Never [email or web address] Information not available 08/09/2023 How Often Does Anyone, Including Family, Insult Or Talk Down To You? Rarely [email or web address] Information no t available 08/09/2023 How Often Does Anyone, Including Family, Threaten You With Harm? Never [email or web address] Information not available 08/09/2023 How Often Does Anyone, Including Family, Scream Or Curse At You? Never [email or web address] Information not available 08/09/2023 Within The Past 12 Months, You Worried That Your Food Would Run Out Before You Got Money To Buy More. Never True [email or web address] Information n ot available 08/09/2023 Within The Past 12 Months, The Food You Bought Just Didn't Last And You Didn't Have Money To Get More. Never True [email or web address] Information not available 08/09/2023 How Hard Is It For You To Pay For The Very Basics Like Food, Housing, Medical Care, And Heating? Would You Say It Is: Somewhat Hard [email or web address] Information not available 08/09/2023 In The Past 12 Months, Has Lack Of Reliable Transportation Kept You From Medical Appointments, Meetings, Work Or From Getting Things Needed For Daily Living? No [email or web address] Information not available 08/09/2023 What Is Your Housing Situation Today? I Have Housing. [email or web address] Information not available 08/09/2023 How Often In The Past Year Have You Used Marijuana (including Smoking, Vaping, Dabbing, Or Edibles)? Never [email or web address] Information not available 08/09/2023 How Often In The Past Year Have You Used Prescription Medications That Were Not Prescribed To You? Never Information not available 08/09/2023 How Often In The Past Year Have You Taken Your Own Prescription Medication More Than The Way It Was Prescribed Or For Different Reasons Than Its Intended Purpose? Never [email or web address] Information not available 08/09/2023 How Often In The Past Year Have You Used Other Drugs (for Example, Heroin, Cocaine, Meth, Salvia, Inhalants)? Never [email or web address] Information not available 08/09/2023 Have You Ever Used IV Drugs? No [email or web address] Information not available 08/09/2023 Date Of Most Recent SBINS 08/09/2023 [email or web address] Information not available 08/09/2023 What Was The Date Of Your Most Recent Tobacco Screening? 10/18/2023 [email or web address] Information n ot available 10/18/2023 Has Tobacco Cessation Counseling Been Provided? No [email or web address] Information not available 10/25/2023 Do You Or Have You Ever Used Any Other Forms Of Tobacco Or Nicotine? No [email or web address] Information not available 03/18/2023 Sex: Female Functional Status None recorded. Mental Status None recorded. Family History Relationship Description Onset Age of this Age Resolved Age Notes Mother Family history of ac sánchez medical disorder Notes:*Problem: Mother: d. 6 7 , cirrhosis, non ETOH Father: d. [place], acute hepatitis Sisters: x1, cirrhosis, non ETOH, [...] preservative free, adsorbed 12/28/2016 completed Not Available [facility] 02/15/2023 05:29:32 Hep A-Hep B 05/11/2016 completed Not Available [facility] 02/15/2023 05:29:32 Hep A-Hep B 02/24/2016 completed Not Available [facility] 02/15/2023 05:29:32 Tdap 07/01/2006 completed Not Available [facility] 05:29:32 Pneumococcal conjugate PCV 13 05/11/2016 completed Not Available [facility] 02/15/2023 05:29:32 Td(adult) unspecified formulation 02/07/1996 completed Not Available [facility] 02/15/2023 05:29:32 Influenza, split virus, trivalent, preservative 12/30/2015 completed Not Available [facility] 02/15/2023 05:29:32 Influenza, split virus, trivalent, preservative 02/21/2015 completed Not Available [facility] 02/15/2023 05:29:32 Influenza, split virus, quadrivalent, PF 01/03/2012 completed Not Available [facility] 02/15/2023 05:29:33 Influenza, split virus, quadrivalent, PF 01/19/2013 completed Not Available [facility] 02/15/2023 05:29:33 Influenza, split virus, quadrivalent, preservative 12/28/2016 completed Not Available [facility] 02/15/2023 05:29:33 Influenza, split virus, quadrivalent, preservative 01/28/2018 completed Not Available [facility] 02/15/2023 05:29:33 Influenza, high-dose, quadrivalent, PF 12/26/2020 completed Not Available [facility] 02/15/2023 05:29:33 COVID-19, mRNA, LNP-S, PF, 100 mcg/0.5mL dose or 50 mcg/0.25mL dose 05/25/2020 completed Not Available [facility] 02/15/2023 05:29:33 COVID-19, mRNA, LNP-S, PF, 100 mcg/0.5mL dose or 50 mcg/0.25mL dose 2020 completed Not Available [facility] 02/15/2023 05:29:33 COVID-19, mRNA, LNP-S, PF, 100 mcg/0.5mL dose or 50 mcg/0.25mL dose 09/05/2021 completed Not Available [facility] 02/15/2023 05:29:33 SARS-COV-2 (COVID-19) vaccine, UNSPECIFIED 02/27/2021 completed Not Available [facility] 02/15/2023 05:29:34 COVID-19, mRNA, LNP-S, bivalent, PF, 30 mcg/0.3 mL dose 09/19/2022 completed Not Available [facility] 02/16/20 05:29:34 COVID-19, mRNA, LNP-S, bivalent, PF, 30 mcg/0.3 mL dose 03/05/2022 completed Not Available [facility] 02/16/20 05:29:34 pneumococcal polysaccharide PPV23 07/01/2006 completed Not Available [facility] 2022 05:29:34 pneumococcal polysaccharide PPV23 02/21/2015 completed Not Available [facility] 2022 05:29:34 pneumococcal polysaccharide PPV23 03/11/2001 completed Not Available [facility] 2022 05:29:34 Hep B, adult 09/28/2016 completed Not Available [facility] 02/15/2023 05:29:34 influenza, unspecified formulation 01/12/2008 completed Not Available [facility] 02/15/2023 05:29:34 influenza, unspecified formulation 02/01/2014 completed Not Available [facility] 02/15/2023 05:29:34 influenza, unspecified formulation 02/12/2019 completed Not Available [facility] 02/15/2023 05:29:35 Influenza, high-dose, quadrivalent, PF 01/24/2023 completed Not Available [facility] 04/19/2023 05:31:38 COVID-19, mRNA, LNP-S, PF, mayito-sucrose, 30 mcg/0.3 mL 01/30/2023 completed Not Available [facility] 04/19/2023 05:31:38 Past Encounters Encounter ID Performer Location Encounter Start Date Encounter Closed Date Diagnosis/Indication Diagnosis SNOMED-CT Code [id number] RUPAL BARILLAS MD [address] [address] 10/18/2023 14:36:15 10/18/2023 15:35:43 Restless legs 75147915 Lichen scl erosus of vulva 088737892 Milia 875507360 Actinic keratosis 904857 682 [id number] RUPAL BARILLAS MD [address] [address] 10/25/2023 10:28:44 10/25/2023 11:17:17 Lichen sclerosus of vulva 007115194 Eruption of vulva 184335 932 [id number] RUPAL BARILLAS MD [address] [address] 11/08/2023 11:13:01 11/08/2023 12:30:59 Nodule of lung 646878667 Lichen scl erosus of vulva 789576048 Actinic keratosis 164869 007 Xerostomia 83385595 Thrombocyt openic disorder 120417385 Restless legs 19848687 Neuropathy due to type 2 diabetes mellitus 927533883707720 Vulvitis 79928750 Health Concerns Section Related Observation LastModified by Organization Detai ls LastModified Time None Recorded Concern Status LastModified by Organization Details LastModified Time None Recorded Payers Encounter Date Sequence Insurance Name Policy Number Policy Lucas Covered Member ID Lucas Member ID Guarantor Name 11/08/2023 1 [id number]/A [place]ANTAGE - PPO) [id number] Milka Corbett [id number] Milka Turner Corbett Notes Date Note Type Note Provider Name and Address Organization Details Recorded Time 11/08/2023 text/html HPI Notes: Pt presents for F/U of vulvovaginal redness, itching and irritation x 2 weeks. Results from vaginal swab at last visit (10/24) pos for yeast. Pt is using topical clotrimazole cream (from urgent care visit 11/02) with only slight improvement. Pt c/o increase frequency of chest tightness mostly brought on by exertional activity but recently had an episode of CP from loading her dishes into the cosmetic chemist which was relieved by approx 20 min [...] Victoza x 2 wks d/t supply issues. MD [address], [place], [address], [facility]. 11/08/2023 13:24:20 OBGyn Episode No OBEpisode recorded.
--- OUTSIDE RECORDS SUMMARY | 2023-12-02 18:33 | XMS_ITS | Encounter Summary ---
[facility] [place] [address] Care Team Providers Care Cement Tile Maker Name Role Phone Salome Mcarthur APRN Primary Care Provider [phone] Encounter Details Date Type Department Care Team (Latest Contact Info) Description 08/08/2023 Travel Social History Tobacco Use Types Packs/Day Years Used Date Smoking Tobacco: Never Smokeless Tobacco: Never Alcohol Use Standard Drinks/Week Comments Yes 0 (1 standard drink = 0.6 oz pur e alcohol) once per year Sex and Gender Information Value Date Recorded Sex Assigned at Not on file Gender Identity Not on file Sexual Orientation Not on file documented as of this encounter Plan of Treatment Upcoming Encounters Date Type Department Care Team (Late st Contact Info) Description 02/06/2024 11:30 AM EDT [place] [phone] Molly Cui [facility] [place] [address] 02/06/2024 12:15 PM EDT Laboratory Appointment Lab [address] [place] [phone] 02/06/2024 1:30 PM EDT Office [place] [phone] Molly Cui [employer] [address] documented as of this encounter Visit Diagnoses Not on filedocumented in this encounter Care Teams Cement Tile Maker Relationship Specialty Start Date End Date Salome Mcarthur APRN [address] [place] [address] PCP - General Family Medicine 05/30/15 documented as of this encounter
--- OUTSIDE RECORDS SUMMARY | 2023-12-02 18:33 | XMS_ITS | Encounter Summary ---
Author Organization [facility] Address [facility] [place] [address] Care Team Providers Care Interior Paneler Name Role Phone Salome Mcarthur APRN Primary Care Provider [phone] Encounter Details Date Type Department Care Team (Latest Contact Info) Description 08/08/2023 11:20 AM EDT - 08/08/2023 11:59 PM EDT Hospital En[place] [phone] Molly Wallis [employer] [facility] [address] Hepatic cirrhosis, unspecified hepatic cirrhosis type, unspecified whether ascites present Discharge Disposition: Home Social History Tobacco Use Types Packs/Day Years Used Date Smoking Tobacco: Never Smokeless Tobacco: Never Alcohol Use Standard Drinks/Week Comments Yes 0 (1 standard drink = 0.6 oz pur e alcohol) once per year Sex and Gender Information Value Date Recorded Sex Assigned at Not on file Gender Identity Not on file Sexual Orientation Not on file documented as of this encounter Medications at Time of Discharge Medication Sig Dispensed Refills Start Date End Date lisinopriL (Zestril) 10 mg tablet Take 1 tablet by mouth once a day for kidney protection 06/06/2009 metoprolol succinate XL (Toprol-XL) 25 mg ER 24 hr tablet Take 37.5 mg by mouth Daily @ 0600. omeprazole (PriLOSEC) 40 mg capsuleIndications:Ga stroesophageal reflux disease without esophagitis TAKE 1 CAPSULE BY MOUTH DAILY 90 capsule 1 04/29/2023 04/28/2024 atorvastatin (Lipitor) 20 mg Tablet Take 20 mg by mouth daily. Victoza 2-Jl 0.6 mg/0.1 mL (18 mg/3 mL) Pen Injector Inject 1.8 mg as directed. 05/02/2020 fluticasone propionate (FLONASE) 50 mcg/actuation [place], Suspension 1 spray daily. pramipexole (MIRAPEX) 0.125 mg Tablet Take by mouth 3 times daily. 07/28/2018 diphenhydrAMINE (BENADRYL) 25 mg Capsule Take 25 mg by mouth every 6 hours as needed for Itching. fenofibrate (TRICOR) 145 mg Tablet Reported on 08/21/2016 02/17/2015 nystatin (MYCOSTATIN) 100,000 unit/mL Suspension as needed. 0 05/19/2015 clonazePAM (KLONOPIN) 0.5 mg Tablet nightly. 02/21/2015 gabapentin (NEURONTIN) 600 mg Tablet Take 600 mg by mouth 2 times daily. metFORMIN (GLUCOPHAGE) 1,000 mg tablet Take 1,000 mg by mouth 2 times daily (with meals). triamcinolone (KENALOG) 0.1 % cream Apply 1 Application topically as needed. lisinopril-hydrochlor othiazide (PRINZIDE;ZESTORETIC) 10-12.5 mg per tablet Take 1 tablet by mouth daily. acetaminophen (TYLENOL) 325 mg tablet Take 650 mg by mouth every 4 hours as needed. FEXOFENADINE HCL (JESÚS ORAL) Take 100 mg by mouth as needed. Reported on 08/21/2016 fish oil-omega-3 fatty acids with vitamin E 1,000 mg Capsule Take 3,000 mg by mouth daily. multivitamin (THERAGRAN) tablet Take 1 tablet by mouth daily. amitriptyline (ELAVIL) 50 mg tablet Take 25 mg by mouth nightly. docusate sodium (COLACE) 100 mg capsule Take by mouth. 02/24/2009 carvediloL (Coreg) 6.25 mg tablet Take 1 tablet by mouth 2 times daily (with meals). 60 tablet 3 08/08/2023 10/23/2023 documented as of this encounter Plan of Treatment Upcoming Encounters Date Type Department Care Team (Late st Contact Info) Description 02/06/2024 11:30 AM EDT [place] [phone] Molly Wallis, [facility] [place] [address] 02/06/2024 12:15 PM EDT Laboratory Appointment Lab 3L [facility] [place] [address] 02/06/2024 1:30 PM EDT Office [place] [phone] Molly Wallis [facility] [place] [address] documented as of this encounter Procedures Procedure Name Priority Date/Time Associated Diagnosis Comments US ABDOMEN LIMITED HEPATOLOGY PROTOCOL Routine 08/08/2023 11:45 AM EDT Hepatic cirrhosis, unspecified hepatic cirrhosis type, unspecified whether ascites present documented in this encounter Results * US Abdomen Limited Hepatology Protocol (08/08/2023 11:45 AM EDT) WORKSTATION ID [id number] [facility] Anatomical Region Laterality Modality Abdomen Ultrasound 08/08/2023 11:2 7 AM EDT Impressions 08/08/2023 1:32 PM EDT 1. ??Coarse , nodular and hyperechoic liver parenchyma, consistent with cirrhosis. Hepatomegaly. No focal lesion. 2. ??Cholecystectomy. Normal common bile duct. 3. ??No ascites. 4. ??Splenomegaly. I have personally reviewed the image(s) and the resident's interpretation and agree with the findings, Alisha Grove MD at 08/08/2023 1:24 PM Thank you for letting us participate in the care of this patient. If you are a health care provider and have any questions regarding this report, please contact the number above. For patients who have questions, please contact the health day care supervisor that requested your imaging first. ?Alisha Grove, Staff Physician Electronically Signed Final Report ?? 08/08/2023 01:31 pm Narrative 08/08/2023 1:32 PM EDT Abdominal ? (Signed Final 08/08/2023 01:31 pm) PATIENT INFO: ID #: ? [id number] ?: ??[birth year] (83 yrs)(F) Name: ? MILKA MENDIETA ?Visit Date: 08/08/2023 11:27 am PERFORMED BY: Attending: ?Perfecto GALLO, Alisha Carpio Resident: ? Stevie GALLO, [facility] Performed By: ? Ayaka Biswas RDMS Referred By: ?MOLLY WALLIS Location: ? [place] SERVICE(S) PROVIDED: [facility] - Hepatology Protocol - Abdominal ?[id number] Limited Survey Single Organ or Quadrant - [id number] INDICATIONS: cirrhosis, screen for hcc, splenomegaly ------ LIVER: ------ Right Lobe Length: ?? 21.2 ?? cm Echogenicity/Echotexture: ?? Coarse parenchyma Portal Veins: ?Patent Hepatic Veins: ?? Patent GALLBLADDER: Comment: ?Cholecystectomy BILIARY TRACT: Intrahepatic Ducts: ?? Normal Extrahepatic Ducts: ?? Normal Common Duct Size: ? 3.4 ? mm ------- SPLEEN: ------- Size (cm) ?L: ??15.9 FLUID COLLECTIONS: Ascites not present on 4 quadrant evaluation. Procedure Note Alisha Grove MD - 08/08/2023 Abdominal (Signed Final 08/08/2023 01:31 pm) PATIENT INFO: ID #: [id number] : 42 (83 yrs)(F) Name: MILKA MENDIETA Visit Date: 08/08/2023 11:27 am PERFORMED BY: Attending: Alisha Grove MD [facility] Performed By: Ayaka Biswas RDMS Referred By: MOLLY WALLIS Location: [place] SERVICE(S) PROVIDED: [facility] - Hepatology Protocol - Abdominal [id number] Limited Survey Single Organ or Quadrant - [id number] INDICATIONS: cirrhosis, screen for hcc, splenomegaly ------ LIVER: ------ Right Lobe Length: 21.2 cm Echogenicity/Echotexture: Coarse parenchyma Portal Veins: Patent Hepatic Veins: Patent GALLBLADDER: Comment: Cholecystectomy BILIARY TRACT: Intrahepatic Ducts: Normal Extrahepatic Ducts: Normal Common Duct Size: 3.4 mm ------- SPLEEN: ------- Size (cm) L: 15.9 FLUID COLLECTIONS: Ascites not present on 4 quadrant evaluation. IMPRESSION 1. Coarse , nodular and hyperechoic liver parenchyma, consistent with cirrhosis. Hepatomegaly. No focal lesion. 2. Cholecystectomy. Normal common bile duct. 3. No ascites. 4. Splenomegaly. I have personally reviewed the image(s) and the resident's interpretation and agree with the findings, Alisha Grove MD at 08/08/2023 1:24 PM Electronically signed by: Alisha Grove MD, [facility] ([phone]), at 08/08/2023 1:24 PM Thank you for letting us participate in the care of this patient. If you are a health care provider and have any questions regarding this report, please contact the number above. For patients who have questions, please contact the health day care supervisor that requested your imaging first. Alisha Grove, Staff Physician Electronically Signed Final Report 08/08/2023 01:31 pm Molly Wallis APRN [facility] GEN ORDERAB LES documented in this encounter Visit Diagnoses Diagnosis Hepatic cirrhosis, unspecified hepatic cirrhosis type, unspecified whether ascites present documented in this encounter Care Teams Interior Paneler Relationship Specialty Start Date End Date Salome Mcarthur APRN [address] [place] [address] PCP - General Family Medicine 05/30/15 documented as of this encounter
--- OUTSIDE RECORDS SUMMARY | 2023-12-02 18:33 | XMS_ITS | Encounter Summary ---
Author Organization [facility] [place] [address] Care Team Providers Care Computer Architect Name Role Phone Salome Mcarthur APRN Primary Care Provider [phone] Encounter Details Date Type Department Care Team (Latest Contact Info) Description 10/24/2023 Travel Social History Tobacco Use Types Packs/Day [...] 02/06/2024 11:30 AM EDT Appoint[place] [phone] Molly Cui [employer]ILY [employer] DIV[employer]CE LEGAL ASSISTANT [facility] [place] [address] 02/06/2024 12:15 PM EDT Laboratory Appointment Lab [address] [place] [phone] 02/06/2024 1:30 PM EDT Office [place] [phone] Molly Cui [employer]ILY [employer] LEGAL ASSISTANT [facility] [place] [address] documented as of this encounter Visit Diagnoses Not on filedocumented in this encounter Care Teams Computer Architect Relationship Specialty Start Date End Date Salome Mcarthur APRN [address] [place] [address] PCP - General Family Medicine 05/30/15 documented as of this encounter
--- OUTSIDE RECORDS SUMMARY | 2023-12-02 18:33 | XMS_ITS | Continuity of Care Document ---
Author Organization [facility], [facility] Address [address] [place] [address] Care Team Providers Care Binding End Stitcher Name Role Phone CRYSTAL ORTEGA Physician Anesthesiologist LANI WALLIS Illuminator Assessment Encounter Date Assessment Date Assessment LastModified by Organization Details LastModified Time 09/24/2023 09/24/2023 The total time devoted to today's encounter, including both the hzll-ef-ejqv time with the patient and/or family/caregi haider and yzq-hrse-cl-f pedro time I personally spent is 45 minutes. [email or web address] Not available 09/24/2023 16:48:28 Plan of Treatment Reminders Order Date Submit Date Provider Last Modified By Organization Details Last Modified Time Details Appointments Acute 2023 01:30P M Not available Not available Not available Nurse Visit 2023 05:00P M Not available Not available Not available Follow Up 2023 11:30A M Not available Not available Not available Lab None recorded . Referral None recorded . Procedures None recorded . Surgeries None recorded . Imaging None recorded . Medication Orders None recorded . Patient TargetsNo targets recorded. Patient InstructionsNo instructions recorded. Reason for Referral Physical Therapist Referral for Vertigo referral made at patient's request Referring Physician: Family Saqib Rodriguez, Encounter Date: 08/20/2023 pt with compensated cirrhosi s with chronic thrombocytopenia, may need cardiac stent and cards (Dr. Ortega) concerned whether she could tolerate dual anti-PLT agents. Pls eval. Semi-urgent. Referring Physician: Family Saqib Rodriguez, Encounter Date: 10/07/2023 Results Created Date Observation Date Name Description Value Unit Range Abnormal Flag LastModifiedBy Organization Detail LastModifiedTime 08/29/19 24 08/28/2023 EKG order yony ng 12 lead [facility] [place] [address] EKG TRANSC RIPTIO N REPORT _ Accoun t: Access ion: Admit: StayTy pe: [id number] [facility] Observ ation: Order ID: Submit nate: David aly Provid er: 2023 10:56 [id number] HENRRY HOL[place] _ [place] [id number] [facility] Test Date: 08-27 Pat Name: KAYLEE Khan Depart ment: Cardio logy Clinic Patimarisol t ID: [id number] Room: Gender : F Techni perri: [facility] : 0 [birth year] Reques nate By: HENRRY Mcdaniels Order Number : [id number] Kelby mcdaniels MD: Henrry Ortega Measur ements Interv als [place] Rate: 100 P: 72 MA: 200 QRS: -10 QRSD: 92 T: 0 QT: 356 QTc: 459 Interp retive Statem ents Normal sinus rhythm Low voltag e QRS Compar ed to ECG 2023 10:33: 49 Low QRS voltag e now presen t First degree AV block no longer presen t Electr onical ly Signed On 024 13:23: 03 EDT by Henrry Ortega [facility] (Lab) [address] [place], [address], 09/03/2023 13:49:06 10/01/19 24 09/30/2023 xr chest nik ble or 1V [facility] RADIOL OGY [place] [id number] INFINI TT PACS TRANSC RIPTIO N REPORT _ Patien t Name: CRISTEL SEGUNDO MRN: Sex: : Age: [id number] F [id number] Accoun t: Access ion: Admit: StayTy pe: [id number] E Ravinder d: Order ID: Submit nate: Orderi ng Provid er: 2023 22:41 [id number] LUIS A CAMPOS nate: Techno logist : [...] t's age. OTHER FINDIN GS:Nor mal. IMPRES EUGENE: No acute pulmon mo findin gs. DATA REPOSI TORY: RADIAT ION DOSE DELIVE RED: Electr onical ly signed by: Kris Ferguson ed: 2023 09:[email or web address] [place] [address] (Lab) [address] [place] [address], [address], 10/01/2023 16:07:13 10/01/19 24 10/01/2023 CT angio chest ABD pelvi s W IV contr st* [facility] RADIOL OGY [place] [id number] INFINI TT PACS TRANSC RIPTIO N REPORT _ Patien t Name: CRISTEL SEGUNDO MRN: Sex: : Age: [id number] F [id number] Accoun t: Access ion: Admit: StayTy pe: [id number] E Ravinder d: Order ID: Submit nate: David ng Provid er: 2023 23:30 [id number] LUIS A VEGA nate: Techno logist : [...] limits for the patien t's age. IMPRES EUGENE: 1. No eviden ce of aortic dissec [...] signed by: Kris Ferguson ed: 2023 09:[address] (Lab) [address] [place] [address], [address], 10/01/2023 16:07:14 10/01/19 24 09/30/2023 EKG order yony ng 12 lead [facility] [place] [address] EKG TRANSC RIPTIO N REPORT _ Accoun t: Access ion: Admit: StayTy pe: [id number] E/R Observ ation: Order ID: Submit nate: David aly Provid er: 2023 22:33 [id number] LUIS A FLANNERY _ [place] [id number] [facility] Test Date: 09-29 Pat Name: KAYLEE Khan Depart ment: Julio César bermudez ID: [id number] Room: ED TR Gender : F Techngwendolyn perri: JG : 1941-0 06-22 Reques nate By: LUIS A Khan Order Number : [id number] Kelby mcdaniels MD: Adi rothman Measur ements Interv als [place] Rate: 94 P: 67 MA: 192 QRS: -21 QRSD: 90 T: 0 QT: 368 QTc: 460 Interp retive Statem ents Normal sinus rhythm Compar ed to ECG 2023 10:56: 00 No signif icant change s Electr onical ly Signed On 024 9:48:5 6 EDT by Adi [address]endez[address] [place] [address] (Lab) [address] [place] [address], [address], 10/01/2023 16:07:13 10/17/19 24 10/02/2023 EKG order yony aly 12 [facility] [address] [place] TRANSC FOZIA Morales REPORT _ Accoun t: Access ion: Admit: StayTy pe: [id number] [facility] Observ ation: Order ID: Submit nate: David Klein er: 2023 09:52 [id number] HENRRY RENEE _ [place] [id number] [facility] Cardio logy Test Date: 10-01 Pat Name: KAYLEE Khan Depart ment: Cardio logy Clinic Patien t ID: [id number] Room: [facility] : [birth year]-22 Reques nate By: HENRRY Mcdaniels Order Number : [id number] Kelby mcdaniels MD: Jung oCrona Measur ements Interv als [place] Rate: 77 P: 61 MA: 194 QRS: -21 QRSD: 86 T: 0 QT: 394 QTc: 445 Interp retive Statem ents Normal sinus rhythm Compar ed to ECG 2023 22:33: 49 No signif icant change s Electr onical ly Signed On 024 15:33: 04 EDT by Jung [address]endez[address] [place] [address] (Lab) [address] [place] [address], [address], 10/18/2023 07:53:24 10/24/19 24 10/24/2023 PET-C T, skull base to mid-t high scan No observ ation record ed. [email or web address] [address] [place], [address], 10/29/2023 13:01:17 11/14/19 24 11/13/2023 EKG order yony ng 12 lead [facility] [place] t [address] EKG TRANSC RIPROYCE N REPORT _ Accoun t: Access ion: Admit: StayTy pe: [id number] 11/13/19 [facility] Observ ation: Order ID: Submit nate: David aly Provid er: 2023 09:24 [id number] HENRRY RENEE _ [place] [id number] [facility] Cardio logy Test Date: 11-12 Pat Name: KAYLEE Khan Depart ment: Cardio logy Clinic Patien t ID: [id number] Room: Gender : Alexys perri: [facility] : 06-22 Reques nate By: HENRRY Mcdaniels Order Number : [id number] Kelby mcdaniels MD: Henrry Ortega Measur ements Interv als [place] Rate: 75 P: 70 MA: 204 QRS: -19 QRSD: 88 T: 0 QT: 404 QTc: 451 Interp retive Statem ents Normal sinus rhythm Low voltag e QRS Compar ed to ECG 2023 09:52: 35 Low QRS voltag e now presen t Electr onical ly Signed On 11-14-19 16:49: 58 EDT by Henrry Ortega [address] (Lab) [address] [place], [address], 11/15/2023 12:39:20 Result Notes None recorded. Problems Name Status Onset Date Resolution Date Notes Provider Name and Address Organization Details Recorded Time Essential hypertension Completed 201305/13/2023 Problem Code: I10; Problem Code Type: ICD-10; MD Livan [address], [place], [address] , [facility] 4 13:45:04 Migraine [facility] 12:45:27 History of disorder of digestive system Completed 201305/13/2023 Problem Code: Z87.19; Problem Code Type: ICD-10; MD Livan [address], [place], [address] , [facility] 4 13:45:04 Restless legs Active 2013 Gail rodriguez, [facility] 12:48:18 Disorder of nervous system [...] Code Type: ICD-10; MD Livan [address], [place], [address] , [facility] 4 13:45:04 Allergic rhinitis Completed 201305/13/2023 Problem Code: J30.9; Problem Code Type: ICD-10; MD Livan [address], [place], [address] , [facility] 4 13:45:04 Mixed hyperlipidemi a Active 2013 [facility] 4 12:45:48 Neuropathy due to type 2 diabetes mellitus Active 2013 [facility] 4 12:46:16 Intolerance to lactose Completed 201305/13/2023 Problem Code: E73.9; Problem Code Type: ICD-10; MD Livan [address], [place], [address] [place] [address] 4 13:45:04 Heart murmur Active 2013 AYSHA BARILLAS MD [address], [place], [address] [place] [address] 4 06:52:52 History of malignant neoplasm of bladder Active 2013, recurrence 2008, Dr. Boykin, chemo instillation, straight caths [facility] 4 12:43:10 History of nutritional disorder Completed 201405/13/2023 AYSHA BARILLAS MD [address], [place], [address] , [facility] 4 13:45:04 Irritable bowel syndrome Active 2014 [facility] 4 12:45:06 Eczema Active 2014 [facility] 4 12:38:10 Hernia of abdominal cavity Active 2015 [facility] 4 12:41:15 Cirrhosis of liver Completed 201505/13/2023 09/22/2019 - Comments only - Nat Bryant M.D. - Has gained some weight, and possibly has ascites, although I have never examined her before. Follow-up as planned tomorrow for imaging, labs, and specialist appointment at [facility]. Problem Code: K74.69; Problem Code Type: ICD-10; MD Livan [address], [place], [address] , [facility] 4 13:45:04 History of urinary [...] Code Type: ICD-10; MD Livan ROD[address] Dr, [facility] [address] , [facility] 4 13:45:04 Screening for malignant neoplasm of breast Completed 201505/13/2023 Problem Code: Z12.39; Problem Code Type: ICD-10; MD Livan [address], [place], [address] , [facility] 4 13:45:04 Candidiasis of vagina Completed 201505/13/2023 Problem Code: B37.3; Problem Code Type: ICD-10; MD Livan R[address], [facility] [address] , [facility] 4 13:45:04 Portal hypertension Active 2015 no ascites or encephalopath y, EGD 2015 (gastric ulcer) Gail rodriguez, [facility] 4 12:47:45 Genitourinary symptoms Completed 201504/17/2016 Problem Code: R39.89; Problem Code Type: ICD-10; Not Available [facility] 3 04:10:10 Screening for malignant neoplasm of colon Completed 201605/13/2023 Problem Code: Z12.11; Problem Code Type: ICD-10; MD Livan ROD[address] Dr, [facility] [address] [place] [address] 4 13:45:04 Pneumonia Completed 201602/15/2017 02/11/2017 - Improved - 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. 4 12:39:42 Hepatic failure Completed 201805/13/2023 Problem Code: K72.90; Problem Code Type: ICD-10; MD Livan ROD[address] Dr, [facility] [address] , [facility] 4 13:45:04 Acute upper respiratory infection Completed 201811/08/2018 Problem Code: J06.9; Problem Code Type: ICD-10; MD Livan RODR[address] Dr, [facility] [address] , [facility] 4 13:45:04 Proteinuria Completed 201805/13/2023 Problem Code: R80.9; Problem Code Type: ICD-10; MD Livan RODRIGUEZ Dr [facility] [address] [place] [address] 4 13:45:04 Hyperlipidemi a Active 2018 [place] Lavern rodriguez [facility] 4 12:44:49 Gastroesophag eal reflux disease without esophagitis Active 2019 Gail Fregosogrady rodriguez, [facility] 4 12:39:54 Urinary tract infectious disease Completed [...] N39.0; Problem Code Type: ICD-10; Not Available [facility] 3 04:10:12 Nervous system and sense organ diseases Completed 202005/13/2023 AYSHA BARILLAS MD [address], [place], [address] , [facility] 4 13:45:04 Fall on or from stairs or steps Completed 202005/27/2020 Problem Code: W10.9xxA; Problem Code Type: ICD-10; Not Available [facility] 3 04:10:12 Knee joint effusion Completed 202006/06/2020 Problem Code: M25.469; Problem Code Type: ICD-10; Not Available [facility] 3 04:10:13 Low back pain Completed 202006/20/2020 Problem Code: M54.5; Problem Code Type: ICD-10; INDIRA YEN [address], [place], [address] , [facility] 4 14:31:55 Dysuria Completed 202009/03/2020 Problem Code: R30.0; Problem Code Type: ICD-10; Not Available [facility] 3 04:10:13 Psychophysiol ogic insomnia Active 2020 Insomnia, chronic Gail Lavern [facility] 4 12:48:07 Dizziness and giddiness Completed 202010/31/2020 Problem Code: R42; Problem Code Type: ICD-10; Not Available [facility] 3 04:10:14 [facility] 4 12:37:19 Urinary tract infectious disease Completed 202003/03/2021 Problem Code: N39.0; Problem Code Type: ICD-10; Not Available [facility] 3 04:10:14 Disorder of hematopoietic structure Completed 202105/13/2023 Problem Code: D75.89; Problem Code Type: ICD-10; AYSHA BARILLAS MD [address], [address] 4 13:45:04 Tension-type headache Completed 202105/13/2023 Problem Code: G44.209; Problem Code Type: ICD-10; MD Livan RODRIGUEZ Dr, [address] 4 13:45:04 Acute conjunctiviti s of left eye Completed 202112/19/2021 12/12/2021 - Comments only - Nat Bryant M.D. - Likely bacterial. Rx sent for e-mycin ointment. Call for reevaluation if worsening, or no better w/in 48 hours. Problem Code: H10.32; Problem Code Type: ICD-10; Not Available [facility] 3 04:10:15 Cerebrovascul ar disease Active 2021 [facility]ail La[facility] 4 12:37:49 Urinary tract infectious disease Completed 202208/28/2022 Problem Code: N39.0; Problem Code Type: ICD-10; Not Available [facility] 3 04:10:15 Pneumonia Completed 202211/08/2022 10/29/2022 - Improved - Aysha Barillas MD - But with persistent evidence of congestion in right lung. Advised chest x-ray in a couple of weeks to evaluate for any persistent abnormalities requiring further follow-up. She has not had imaging yet with this infection. Problem Code: J18.9; Problem Code Type: ICD-10; Not Available [facility] 3 04:10:15 Edema Active 2022 Peripheral edema [facility] 4 12:38:42 Castillo's esophagus Active 2022 [facility] 4 12:37:33 Candidiasis of skin Completed 201810/23/2022 Problem Code: B37.2; Problem Code Type: ICD-10; Not Available [facility] 3 04:10:16 Acute atopic conjunctiviti s Completed 201804/21/2019 Problem Code: H10.10; Problem Code Type: ICD-10; Not Available [facility] 3 04:10:16 Constipation Completed 201301/02/2023 Problem Code: K59.00; Problem Code Type: ICD-10; Not Available [facility] 3 04:10:16 Cough Completed 202201/02/2023 Problem Code: R05.8; Problem Code Type: ICD-10; Not Available [facility] 3 04:10:16 Hypertensive disorder Completed 201301/02/2023 Not Available [facility] 3 04:10:17 Neoplasm of urinary bladder Completed 201301/02/2023 Problem Code: D49.4; Problem Code Type: ICD-10; Not Available [facility] 3 04:10:17 Enthesopathy Completed 201812/26/2020 Problem Code: M77.9; Problem Code Type: ICD-10; Not Available [facility] 3 04:10:17 Hypercalcemia Completed 201401/02/2023 Not Available [facility] 3 04:10:18 Lung field abnormal Completed 201607/29/2017 Problem Code: R91.8; Problem Code Type: ICD-10; Not Available [facility] 3 04:10:18 Insomnia Completed 201906/06/2021 Problem Code: F51.09; Problem Code Type: ICD-10; Not Available [facility] 3 04:10:18 Disorder of lung Completed 201710/23/2022 Problem Code: J98.4; Problem Code Type: ICD-10; Not Available [facility] 3 04:10:18 Type 2 diabetes mellitus without complication Completed 201301/02/2023 Problem Code: E11.9; Problem Code Type: ICD-10; Not Available [facility] 3 04:10:19 Pain of left shoulder joint Completed 201406/06/2021 Problem Code: M25.512; Problem Code Type: ICD-10; Not Available [facility] 3 04:10:19 Screening for osteoporosis Completed 201602/11/2017 Problem Code: Z13.820; Problem Code Type: ICD-10; Not Available [facility] 3 04:10:19 Inflamed seborrheic keratosis Completed 201910/23/2022 Problem Code: L82.0; Problem Code Type: ICD-10; Not Available [facility] 3 04:10:20 Disorder of brain Completed 202103/05/2022 Problem Code: G93.40; Problem Code Type: ICD-10; Not Available [facility] 3 04:10:20 Other idiopathic peripheral neuropathy NOS Completed 201301/02/2023 Not Available [facility] 3 04:10:20 Obesity Completed 201301/02/2023 Not Available [facility] 3 04:10:20 Fatigue Completed 201810/27/2018 Problem Code: R53.83; Problem Code Type: ICD-10; Not Available [facility] 3 04:10:21 Genitourinary symptoms Completed 201904/04/2020 Problem Code: R39.9; Problem Code Type: ICD-10; Not Available [facility] 3 04:10:21 Benign paroxysmal positional vertigo Completed 202001/02/2023 Problem Code: H81.10; Problem Code Type: ICD-10; Not Available [facility] 3 04:10:22 Disorder of skin and/or subcutaneous tissue Completed 201904/04/2020 Problem Code: L98.9; Problem Code Type: ICD-10; Not Available [facility] 3 04:10:22 Osteophyte of bone Completed 201906/28/2020 Problem Code: M25.776; Problem Code Type: ICD-10; Not Available [facility] 3 04:10:22 Gastric ulcer Completed 201501/02/2023 Problem Code: K25.9; Problem Code Type: ICD-10; Not Available [facility] 3 04:10:22 Right side sciatica Completed 201804/21/2019 Problem Code: M54.31; Problem Code Type: ICD-10; Not Available [facility] 3 04:10:23 Candidiasis Completed 201308/22/2015 Problem Code: B37.9; Problem Code Type: ICD-10; Not Available [facility] 3 04:10:23 Steatosis of liver Completed 201302/10/2016 Problem Code: K76.0; Problem Code Type: ICD-10; Not Available [facility] 3 04:10:23 Cough Completed 201912/26/2020 Problem Code: R05; Problem Code Type: ICD-10; Not Available [facility] 3 04:10:23 Xerostomia Completed 202006/06/2021 Problem Code: R68.2; Problem Code Type: ICD-10; Gail Lavern null, [facility] 4 12:49:03 Candidal vulvovaginiti s Completed 201301/02/2023 Problem Code: 112.1; Problem Code Type: ICD-9; Not Available [facility] 3 04:10:25 Intestinal disaccharidas e deficiency Completed 201301/02/2023 Problem Code: 271.3; Problem Code Type: ICD-9; Not Available [facility] 3 04:10:25 Acute bronchitis Completed 201912/26/2020 Problem Code: J20.9; Problem Code Type: ICD-10; Not Available [facility] 3 04:10:26 Peripheral nerve disease Completed 201301/02/2023 Not Available [facility] 3 04:10:26 Acute upper respiratory infection Completed 202205/13/2023 Problem Code: J06.9; Problem Code Type: ICD-10; MD Livan R[address] Dr, [place] [id number] , [facility] 4 13:45:04 Diastolic heart failure Active 2022 echo 03/[address], [place] [id number] , [facility] 3 11:17:46 Chest pain Completed 202205/13/2023 Problem Code: R07.89; Problem Code Type: ICD-10; MD Livan R[address] Dr, [facility] [address] , [facility] 4 13:45:03 Aortic stenosis, non-rheumatic Active 2022 mild 03/2023 echo MD Livan [address] Dr, [place] [id number] , [facility] 4 06:52:21 Senile hyperkeratosi s Completed 202205/13/2023 Problem Code: L82.1; Problem Code Type: ICD-10; MD Livan R[address] Dr, [facility] [address] 4 13:45:03 Melanocytic nevus Completed 202205/13/2023 Problem Code: D22.9; Problem Code Type: ICD-10; MD Livan [address], [facility] [address] [place] [address] 4 13:45:04 Incoordinatio n Completed 202205/13/2023 01/30/2023 - Comments only - Aysha Barillas MD - neuro exam not c/w CVA; will eval further at next visit. Problem Code: R27.9; Problem Code Type: ICD-10; MD Livan RODR[address] Dr, [address] 4 13:45:03 Dyspnea Completed 202205/13/2023 Problem Code: R06.09; Problem Code Type: ICD-10; MD Livan RODRIG[address] Dr, [address] 4 13:45:03 Chronic diarrhea Active 2023 [facility] 4 12:37:57 Drug-induced xerostomia Active [address], [facility] [address] 4 13:38:38 Microalbuminu dharmesh diabetic nephropathy Active 2023 [facility], [facility] 4 12:45:11 Dyspnea on exertion Active 2023 [facility] 4 12:37:57 Angular cheilitis Active 2023 Gail Puckett null, [facility] 4 12:36:56 Xerostomia Active 2023 [place] Lavern [facility], [facility] 4 12:49:03 History of adenomatous polyp of colon Active 2020 Gail rodriguez, [facility] 4 12:43:44 Sialoadenitis Completed 202308/09/[address], [facility] [address] , [facility] 4 16:48:36 Low back pain Active 2023 Problem Code: M54.5; Problem Code Type: ICD-10; AMADEO GLEASON, [employer]PER[employer] [address], [facility] [address] , [facility] 4 14:31:55 Chest pain on exertion Active [address], [facility] [address] , [facility] 4 12:24:41 Always hungry Active [address], [facility] [address] , [facility] 4 16:38:32 Altered bowel function Active [address], [facility] [address] , [facility] 4 16:38:44 Atypical chest pain Active 2023 DORIS JONES MA null, [facility] 4 07:31:04 Acquired thrombocytope shirlene Active [address], [facility] [address] , [facility] 4 09:56:08 Actinic keratosis Active [address], [facility] [address] , [facility] 4 13:34:57 Nodule of lung Active 2023 probable lipoma by PET. (benign) MD [address]ivan [address] Dr, [facility] [address] , [facility] 4 06:49:28 Minimal cognitive impairment Active [address], [place] [address] , [facility] 4 15:05:52 New daily persistent headache Active [address], [address] 4 16:29:33 Lichen sclerosus of vulva Active [address], [place] [address] , [facility] 4 15:22:25 Milia Active [address], [address] 4 15:51:39 Obstructive sleep apnea syndrome Active 2023 DORIS JONES MA null, [facility] 4 09:39:29 Atheroscleros is Active 2023 DORIS JNOES MA null, [facility] 4 09:39:44 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 MD Livan RODRIGUEZ Dr, [facility] [phone] , [facility] 4 06:56:02 Vulvitis Active [address], [place] [id number] , [facility] 4 13:20:01 Thrombocytope lia disorder Active [address], [facility] [address] , [facility] 4 13:23:28 Decompensated cirrhosis of liver Active [address], [facility] [address] , [facility] 14:23:47 Notes:Some problems listed i n Document: #[id number] could not be added to this patient's chart. Please review this document and add these problems to the patient's chart manually as needed. Problem Notes None recorded. Procedures Surgical History Date Name Laterality Status Provider Name and Address Organization Details Recorded Time 4 Cryosurgery Warts/Skin Tags completed MD Livan RODRIGUEZ Dr, [facility] [phone] [place] [address] 10/18/2023 15:47:48 Cryosurgery Warts/Skin Tags completed MD Livan RODRIGUEZ Dr, [facility] [phone] 10/07/2023 13:34:27 Imaging Results None recorded. Procedure Notes None recorded. Medical Equipment None Reported. Allergies Allergen ID Allergen Name Allergen Category Reaction Reaction Severity Criticality Documentation Date Start Date Code Code System Note Provider Name and Address Organization Details Recorded Time 61843 erythromy laura medicatio n other moderate Not available 02/15/20232013 4053 RxNorm stoma ch pain [facility] 12:53:11 62721 Bactrim medicatio n itching moderate Not available 08/01/20232013 62315 9 RxNorm itchy skin [facility] 12:51:33 03243 codeine medicatio n itching moderate Not available 08/01/20232013 2670 RxNorm itchy , paran oid [facility] 12:52:07 99042 Demerol medicatio n other moderate Not available 08/01/20232013 08783 1 RxNorm can' t sleep [facility] 12:52:55 96126 simvastat in medicatio n nausea moderate Not available 08/01/20232013 51233 RxNorm (ALLS TATIN S) [facility] 12:53:40 42843 Trulicity medicatio n vomiting moderate low 09/25/2023 15254 96 RxNorm AYSHA BARILLAS MD [address], [place], [address] [place] [address] 12:57:22 Medications Name Sig Start Date Stop [...] once a day 12/[address] [place], [facility] [place] after August 2022 OV Not Available Not Available Not Available gabapenti n 800 mg tablet Take 1 tablet by mouth three times a day 2019 active Not Available Not Available Not Avai lable AdzillaTouch Ultra Test strips USE 1 STRIP VIA [...] Relief 50 mcg/actua tion nasal spray,[facility] [place] 1 spray into both nostrils once a [...] Updated DateTime 4 154.94 cm 26.1 kg/m2 53039.7 5 g 97.9 [degF] 96 % 96 % 86 /min 104 mm[Hg] 52 mm[Hg] JAMEY PRETTY MA [facility] 4 16:08:33 Social History Question Answer Notes LastModified by Organizat ion Details LastModified Time Tobacco Smoking Status Never Smoker MARY PRETTY MA [facility], [facility] 03/18/2023 15:57:23 Would You Say That, In General, Your Health Is Good [email or web address] Information not available 08/09/2023 How Often Does Anyone, Including Family, Physically Hurt You? Never Information not available 08/09/2023 How Often Does Anyone, Including Family, Insult Or Talk Down To You? Rarely [email or web address] Information no t available 08/09/2023 How Often Does Anyone, Including Family, Threaten You With Harm? Never [email or web address] Information not available 08/09/2023 How Often Does Anyone, Including Family, Scream Or Curse At You? Never Information not available 08/09/2023 Within The Past 12 Months, You Worried That Your Food Would Run Out Before You Got Money To Buy More. Never True Information n ot available 08/09/2023 Within The Past 12 Months, The Food You Bought Just Didn't Last And You Didn't Have Money To Get More. Never True [email or web address] Information not available 08/09/2023 How Hard Is It For You To Pay For The Very Basics Like Food, Housing, Medical Care, And Heating? Would You Say It Is: Somewhat Hard [email or web address] Information not available 08/09/2023 In The Past 12 Months, Has Lack Of Reliable Transportation Kept You From Medical Appointments, Meetings, Work Or From Getting Things Needed For Daily Living? No [email or web address] Information not available 08/09/2023 What Is Your Housing Situation Today? I Have Housing. [email or web address] Information not available 08/09/2023 How Often In The Past Year Have You Used Marijuana (including Smoking, Vaping, Dabbing, Or Edibles)? Never [email or web address] Information not available 08/09/2023 How Often In The Past Year Have You Used Prescription Medications That Were Not Prescribed To You? Never [email or web address] Information not available 08/09/2023 How Often In The Past Year Have You Taken Your Own Prescription Medication More Than The Way It Was Prescribed Or For Different Reasons Than Its Intended Purpose? Never Information not available 08/09/2023 How Often In The Past Year Have You Used Other Drugs (for Example, Heroin, Cocaine, Meth, Salvia, Inhalants)? Never [email or web address] Information not available 08/09/2023 Have You Ever Used IV Drugs? No [email or web address] Information not available 08/09/2023 Date Of Most Recent SBINS 08/09/2023 [email or web address] Information not available 08/09/2023 What Was The Date Of Your Most Recent Tobacco Screening? 10/18/2023 [email or web address] Information n ot available 10/18/2023 Has Tobacco Cessation Counseling Been Provided? No [email or web address] Information not available 10/25/2023 Do You Or Have You Ever Used Any Other Forms Of Tobacco Or Nicotine? No [email or web address] Information not available 03/18/2023 Sex: Female Functional Status None recorded. Mental Status None recorded. Family History Relationship Description Onset Age of this Age Resolved Age Notes Mother Family history of ac chitina medical disorder Notes:*Problem: Mother: d. 6 7 , cirrhosis, non ETOH Father: d. MS, acute hepatitis Sisters: x1, cirrhosis, non ETOH, [...] preservative free, adsorbed 12/28/2016 completed Not Available [facility] 02/15/2023 05:29:32 Hep A-Hep B 05/11/2016 completed Not Available [facility] 02/15/2023 05:29:32 Hep A-Hep B 02/24/2016 completed Not Available [facility] 02/15/2023 05:29:32 Tdap 07/01/2006 completed Not Available [facility] 05:29:32 Pneumococcal conjugate PCV 13 05/11/2016 completed Not Available [facility] 02/15/2023 05:29:32 Td(adult) unspecified formulation 02/07/1996 completed Not Available [facility] 02/15/2023 05:29:32 Influenza, split virus, trivalent, preservative 12/30/2015 completed Not Available [facility] 02/15/2023 05:29:32 Influenza, split virus, trivalent, preservative 02/21/2015 completed Not Available [facility] 02/15/2023 05:29:32 Influenza, split virus, quadrivalent, PF 01/03/2012 completed Not Available [facility] 02/15/2023 05:29:33 Influenza, split virus, quadrivalent, PF 01/19/2013 completed Not Available [facility] 02/15/2023 05:29:33 Influenza, split virus, quadrivalent, preservative 12/28/2016 completed Not Available [facility] 02/15/2023 05:29:33 Influenza, split virus, quadrivalent, preservative 01/28/2018 completed Not Available [facility] 02/15/2023 05:29:33 Influenza, high-dose, quadrivalent, PF 12/26/2020 completed Not Available [facility] 02/15/2023 05:29:33 COVID-19, mRNA, LNP-S, PF, 100 mcg/0.5mL dose or 50 mcg/0.25mL dose 05/25/2020 completed Not Available [facility] 02/15/2023 05:29:33 COVID-19, mRNA, LNP-S, PF, 100 mcg/0.5mL dose or 50 mcg/0.25mL dose 2020 completed Not Available [facility] 02/15/2023 05:29:33 COVID-19, mRNA, LNP-S, PF, 100 mcg/0.5mL dose or 50 mcg/0.25mL dose 09/05/2021 completed Not Available [facility] 02/15/2023 05:29:33 SARS-COV-2 (COVID-19) vaccine, UNSPECIFIED 02/27/2021 completed Not Available [facility] 02/15/2023 05:29:34 COVID-19, mRNA, LNP-S, bivalent, PF, 30 mcg/0.3 mL dose 09/19/2022 completed Not Available [facility] 02/16/20 05:29:34 COVID-19, mRNA, LNP-S, bivalent, PF, 30 mcg/0.3 mL dose 03/05/2022 completed Not Available [facility] 02/16/20 05:29:34 pneumococcal polysaccharide PPV23 07/01/2006 completed Not Available [facility] 2022 05:29:34 pneumococcal polysaccharide PPV23 02/21/2015 completed Not Available [facility] 2022 05:29:34 pneumococcal polysaccharide PPV23 03/11/2001 completed Not Available [facility] 2022 05:29:34 Hep B, adult 09/28/2016 completed Not Available [facility] 02/15/2023 05:29:34 influenza, unspecified formulation 01/12/2008 completed Not Available [facility] 02/15/2023 05:29:34 influenza, unspecified formulation 02/01/2014 completed Not Available [facility] 02/15/2023 05:29:34 influenza, unspecified formulation 02/12/2019 completed Not Available [facility] 02/15/2023 05:29:35 Influenza, high-dose, quadrivalent, PF 01/24/2023 completed Not Available [facility] 04/19/2023 05:31:38 COVID-19, mRNA, LNP-S, PF, mayito-sucrose, 30 mcg/0.3 mL 01/30/2023 completed Not Available [facility] 04/19/2023 05:31:38 Past Encounters Encounter ID Performer Location Encounter Start Date Encounter Closed Date Diagnosis/Indication Diagnosis SNOMED-CT Code [id number] AYSHA BARILLAS MD [address] [address] 08/27/2023 13:10:54 08/27/2023 14:44:36 Xerostomia 02228540 Psychophys iologic insomnia 212524828 Neuropathy due to type 2 diabetes mellitus 377425688595117 Benign par oxysmal positional vertigo 176332094 [id number] AYSHA BARILLAS MD [address] [address] 09/24/2023 15:53:59 09/24/2023 16:41:26 Always hungry 751586753 Altered reuben wel function 57494681 History of adenomatous polyp of colon 089535819 Health Concerns Section Related Observation LastModified by Organization Detai ls LastModified Time None Recorded Concern Status LastModified by Organization Details LastModified Time None Recorded Payers Encounter Date Sequence Insurance Name Policy Number Policy Lucas Covered Member ID Lucas Member ID Guarantor Name 09/24/2023 1 [id number] (MEDICARE [place]/A DVANTAGE - PPO) [id number] Milka Corbett [id number] Milka Corbett Notes Date Note Type [...] chart). AYSHA BARILLAS MD [address], [place], [address], [facility]. 09/24/2023 16:48:44 OBGyn Episode No OBEpisode recorded.
--- OUTSIDE RECORDS SUMMARY | 2023-12-02 18:33 | XMS_ITS | Encounter Summary ---
Author Organization [facility] [place] [address] Care Team Providers Care Bioinformatics Research Technician Name Role Phone Salome Mcarthur APRN Primary Care Provider [phone] Reason for Visit * Diagnostic Test (Routine) - Closed Specialty Diagnoses / Procedures Referred By Jose bermudez Referred To Contact Radiology Diagnoses Lung nodule Procedures NM PET CT Skull Base to Mid-thigh Aysha Johnson MD [address] [place] [address] [place] [address] Referral ID Status Reason Start Date Expiration Date V isits Requested Visits Authorized [id number] Closed Specialty Service Requested 10/08/2023 04/09/2025 1 1 Encounter Details Date Type Department Care Team (Latest Contact Info) Description 10/24/2023 11:12 AM EDT - 10/24/2023 11:59 PM EDT Hospital Encounter [place] [address] Aysha Johnson MD [address] [place] [address] Discharge Disposition: Home Social History Tobacco Use [...] Sig Dispensed Refills Start Date End Date carvediloL (Coreg) 6.25 mg tabletIndications:Port al hypertension TAKE 1 TABLET BY MOUTH TWICE DAILY WITH MEALS 180 tablet 1 10/23/2023 lisinopriL (Zestril) 10 mg tablet Take 1 tablet by mouth once a day for kidney protection 06/06/2009 metoprolol succinate XL (Toprol-XL) 25 mg ER 24 hr tablet Take 37.5 mg by mouth Daily @ 0600. omeprazole (PriLOSEC) [address] capsuleIndications:Gas troesophageal reflux disease without esophagitis TAKE 1 CAPSULE BY MOUTH DAILY 90 capsule 1 04/29/2023 04/28/2024 atorvastatin (Lipitor) 20 mg Tablet Take 20 mg by mouth daily. Victoza 2-Jl 0.6 mg/0.1 mL (18 mg/3 mL) Pen Injector Inject 1.8 mg as directed. 05/02/2020 fluticasone propionate (FLONASE) 50 mcg/actuation [place], Suspension 1 spray daily. pramipexole (MIRAPEX) 0.125 [...] cream Apply 1 Application topically as needed. lisinopril-hydrochloro thiazide (PRINZIDE;ZESTORETIC) 10-12.5 mg per tablet Take 1 [...] 100 mg capsule Take by mouth. 02/24/2009 documented as of this encounter Plan of Treatment Upcoming Encounters Date Type Department Care Team (Late st Contact Info) Description 02/06/2024 11:30 AM EDT [place] [phone] Molly Cui, [facility] [place] [address] 02/06/2024 12:15 PM EDT Laboratory Appointment Lab [address] [place] [phone] 02/06/2024 1:30 PM EDT Office [place] [phone] Molly Cui, [facility] [place] [address] documented as of this encounter Procedures Procedure Name Priority Date/Time Associated Diagnosis Comments NM PET CT SKULL BASE TO MID-THIGH ([facility]) Routine 10/24/2023 12:50 PM EDT Lung nodule POCT GLUCOSE Routine 10/24/2023 11:33 AM EDT documented in this encounter Results * POCT Glucose (10/24/2023 11:33 AM EDT) Glucose, POC 108 65 - 199 mg/dL [facility] Comment: Supplemental ranges: <140 mg/dL before meals <180 mg/dL all other times of the day Blood 10/24/2023 11:3 3 AM EDT 10/24/2023 11:33 AM EDT Aysha Johnson MD POINT [place] [address] documented in this encounter Visit Diagnoses Not on filedocumented in this encounter Care Teams Bioinformatics Research Technician Relationship Specialty Start Date End Date Salome Mcarthur, [employer] [address] [place] [address] PCP - General Family Medicine 05/30/15 documented as of this encounter
--- OUTSIDE RECORDS SUMMARY | 2023-12-02 18:33 | XMS_ITS | Continuity of Care Document ---
Author Organization [facility], [facility] Address [address] [place] [address] Care Team Providers Care Mold Finisher Name Role Phone CRYSTAL ORTEGA [employer] Standards Coach LANI WALLIS Collect On Delivery Clerk Assessment Encounter Date Assessment Date Assessment LastModified by Organization Details LastModified Time 10/18/2023 10/18/2023 She has upcoming PET scan for eval of enlarging pulmonary nodule and has been referred to hematology for evaluation of chronic thrombocytopenia in light of possible need for dual platelet agent if cardiac cath is positive/stent(s) placed. [email or web address] Not available 10/18/2023 15:53:13 Plan of Treatment Reminders Order Date Submit Date Provider Last Modified By Organization Details Last Modified Time Details Appointments Acute 2023 01:30P M Not available Not available Not available Nurse Visit 2023 05:00P M Not available Not available Not available Follow Up 2023 11:30A M Not available Not available Not available Lab None recorded. Referral None recorded. Procedures None recorded. Surgeries None recorded. Imaging None recorded. Medication Orders pramipexo le 0.5 mg tablet 2023 024 KAILEE [facility], [address] [place] [address], [facility] [address], [place], [phone], 10/18/2023 15:21:45 clobetaso l 0.05 % topical cream 2023 024 KAILEE [facility], [address] [place] [address], [address], [place], [place], [phone], 10/25/2023 10:39:05 Patient TargetsNo targets recorded. Patient InstructionsNo instructions recorded. Reason for Referral Physical Therapist Referral for Vertigo referral made at patient's request Referring Physician: Rupal Barillas [facility], Encounter Date: 08/20/2023 pt with compensated cirrhosi s with chronic thrombocytopenia, may need cardiac stent and cards (Dr. Ortega) concerned whether she could tolerate dual anti-PLT agents. Pls eval. Semi-urgent. Referring Physician: Rupal Barillas [facility], Encounter Date: 10/07/2023 Results Created Date Observation Date Name Description Value Unit Range Abnormal Flag LastModifiedBy Organization Detail LastModifiedTime 10/01/19 24 09/30/2023 xr chest nik ble or 1V [facility] RADIOL [place] [id number] INFINI TT PACS TRANSC RIPTIO N REPORT _ Patien t Name: CRISTEL SEGUNDO MRN: Sex: : Age: [id number] F [id number] Accoun t: Access ion: Admit: StayTy pe: [id number] E Ravinder d: Order ID: Submit nate: David aly Provid er: 2023 22:41 [id number] LUIS A CAMPOS nate: Techno logist : [...] TINUM: Normal . HEART: Normal . PULMON OSMIN VASCUL ATURE: Normal . LUNGS: Clear. PLEURA L SPACE: No pleura l effusi on or pneumo thorax . BONE:W ithin normal limits for the patien t's age. OTHER FINDIN GS:Nor mal. IMPRES EUGENE: No acute pulmon osmin findin gs. DATA REPOSI TORY: RADIAT ION DOSE DELIVE RED: Electr onical ly signed by: Kris Ferguson ed: 2023 09:[address] (Lab) [address] [place] [address], [address], 10/01/2023 16:07:13 10/01/19 24 10/01/2023 CT angio chest ABD pelvi s W IV contr st* [facility] [place] [address] INFINI TT PACS TRANSC RIPTIO N REPORT _ Patien t Name: CRISTEL SEGUNDO MRN: Sex: : Age: [id number] F [id number] Accoun t: Access ion: Admit: StayTy pe: [id number] E Ravinder d: Order ID: Submit nate: David ng Provid er: 2023 23:30 [id number] LUIS A VEGA nate: Techno logist : Result ed: 2023 23:53 MF 2023 09:22 _ FINAL REPORT EXAM: CT ANGIO CHEST ABD PELVIS W IV CONTRS T CLINIC AL HISTOR Y: Reason for CT: Chest Pain. TECHNI QUE: Imagin g Protoc ol: Axial CT angiog owen was perfor med with multi- slice acquis ition and multi- planar and/or 3D recons tructi ons. CONTRA ST MATERI AL: Intrav enous: Omnipa que. Contra st volume :75 mL Oral: No COMPAR GÓMEZ: CT ANGIOG OWEN * PULMON OSMIN (PE) from 2018 XR CHEST 2V PA AND LATERA L from 2022 XR CHEST PORTAB LE OR 1V from 2023 FINDIN GS: CHEST: Trache obronc hial tree: Patent where visual ized. Pulmon osmin parenc hyma: There has been interv al [...] idatin g infilt rates are seen. Pulmon osmin Arteri es: No eviden ce of fillin g defect to sugges t pulmon osmin emboli . Medias tinum and Diane: No [...] size of the left lower lobe pulmon osmin nodule . If clinic ally approp riate, [...] Regist ry (DIR) with the Americ quinn Tom e of Radiol ogy (ACR). RADIAT ION [...] signed by: Kris Ferguson ed: 2023 09:22 [email or web address] [facility] (Lab) [address] [place] [address], [address], 10/01/2023 16:07:14 10/01/19 24 09/30/2023 EKG order yony ng 12 lead [facility] [place] [address] EKG TRANSC FOZIA Morales REPORT _ Accoun t: Access ion: Admit: StayTy pe: [id number] E/R Observ ation: Order ID: Submit nate: David aly Provid er: 2023 22:33 [id number] [place] [place] _ [place] [id number] [facility] Test Date: 09-29 Pat Name: KAYLEE Khan Depart ment: Keeley bermudez ID: [id number] Room: ED TR Gender : F Techni perri: CHICO : [birth year] Reques nate By: LUIS A Khan Order Number : [id number] Kelby mcdaniels MD: Adi rothman Measur ements Interv als [place] Rate: 94 P: 67 WV: 192 QRS: -21 QRSD: 90 T: 0 QT: 368 QTc: 460 Interp retive Statem ents Normal sinus rhythm Compar ed to ECG 2023 10:56: 00 No signif icant change s Electr onical ly Signed On 024 9:48:5 6 EDT by Adi [address]endez[address] [place] [address] (Lab) [address] [place], [address], 10/01/2023 16:07:13 10/17/19 24 10/02/2023 EKG order yony aly 12 lead [facility] [place] [address] EKG TRANSC RIPTIO N REPORT _ Accoun t: Access ion: Admit: StayTy pe: [id number] [facility] Observ ation: Order ID: Submit nate: David aly Provid er: 2023 09:52 [id number] HENRRY RENEE _ [place] [id number] [facility] Cardio logy Test Date: 10-01 Pat Name: KAYLEE Khan Depart ment: Cardio logy Clinic Patimarisol t ID: [id number] Room: Gender : Yue Reardon perri: [facility] : [birth year] Reques nate By: HENRRY Mcdaniels Order Number : [id number] Kelby mcdaniels MD: Jung Corona Measur ements Interv als [place] Rate: 77 P: 61 WV: 194 QRS: -21 QRSD: 86 T: 0 QT: 394 QTc: 445 Interp retive Statem ents Normal sinus rhythm Compar ed to ECG 2023 22:33: 49 No signif icant change s Electr onical ly Signed On 024 15:33: 04 EDT by Jung [address]endez[address] [place] [address] (Lab) [address] [facility], [place], [address], 10/18/2023 07:53:24 10/24/19 24 10/24/2023 PET-C T, skull base to mid-t high scan No observ ation record ed. [email or web address] [address] , [place], [address], 10/29/2023 13:01:17 11/14/19 24 11/13/2023 EKG order yony ng 12 lead [facility] [place] [address] EKG TRANSC RIPTIO N REPORT _ Accoun t: Access ion: Admit: StayTy pe: [id number] 11/13/19 24 [facility] Spec[facility]ty Clinic Observ ation: Order ID: Submit nate: David aly Provid er: 2023 09:24 [id number] HENRRY RENEE _ [place] [id number] [facility] Cardio logy Test Date: 11-12 Pat Name: KAYLEE Khan Depart ment: Cardio logy Clinic Patimarisol t ID: [id number] Room: Gender : F Techngwendolyn perri: [facility] : 1941-0 17 Reques nate By: HENRRY Mcdaniels Order Number : [id number] Kelby mcdaniels MD: Henrry Ortega Measur ements Interv als [place] Rate: 75 P: 70 WV: 204 QRS: -19 QRSD: 88 T: 0 QT: 404 QTc: 451 Interp retive Statem ents Normal sinus rhythm Low voltag e QRS Compar ed to ECG 2023 09:52: 35 Low QRS voltag e now presen t Electr onical ly Signed On 11-14-19 16:49: 58 EDT by Henrry mendez[address] [place] [address] (Lab) [address] [place] [address], [address], 11/15/2023 12:39:20 Result Notes None recorded. Problems Name Status Onset Date Resolution Date Notes Provider Name and Address Organization Details Recorded Time Essential hypertension Completed 201305/13/2023 Problem Code: I10; Problem Code Type: ICD-10; MD Livan [address], [place], [address] , [facility] 4 13:45:04 Migraine Active 2013 Gail rodriguez [facility] 4 12:45:27 History of disorder of digestive system Completed 201305/13/2023 Problem Code: Z87.19; Problem Code Type: ICD-10; MD Livan [address], [place], [address] , [facility] 4 13:45:04 Restless legs Active 2013 Gail rodriguez [facility] 4 12:48:18 Disorder of nervous system [...] Code Type: ICD-10; MD Livan RODRIGUEZ Dr, [facility] [address] [place] [address] 4 13:45:04 Allergic rhinitis Completed 201305/13/2023 Problem Code: J30.9; Problem Code Type: ICD-10; MD Livan RODRIGUEZ Dr, [facility] [address] [place] [address] 4 13:45:04 [facility]idemi a [facility] 4 12:45:48 Neuropathy due to type 2 diabetes mellitus Active 2013 [facility] 4 12:46:16 Intolerance to lactose Completed 201305/13/2023 Problem Code: E73.9; Problem Code Type: ICD-10; MD Livan RODRIGUEZ Dr, [facility] [address] 4 13:45:04 Heart murmur Active [address], [facility] [address] 4 06:52:52 History of malignant neoplasm of bladder Active 2013, recurrence 2008, Dr. Boykin, chemo instillation, straight caths Clay Lavern [facility] 4 12:43:10 History of nutritional disorder Completed 201405/13/[address], [facility] [address] 4 13:45:04 Irritable bowel syndrome Active 2014 [facility] 4 12:45:06 Eczema Active 2014 [facility] 4 12:38:10 Hernia of abdominal cavity Active 2015 [facility] 4 12:41:15 Cirrhosis of liver Completed 201505/13/2023 09/22/2019 - Comments only - Nat Bryant M.D. - Has gained some weight, and possibly has ascites, although I have never examined her before. Follow-up as planned tomorrow for imaging, labs, and specialist appointment [place] [facility]. Problem Code: K74.69; Problem Code Type: ICD-10; MD Livan [address], [place], [address] , [facility] 4 13:45:04 History of urinary [...] Code Type: ICD-10; MD Livan R[address] Dr, [place], [address] , [facility] 4 13:45:04 Screening for malignant neoplasm of breast Completed 201505/13/2023 Problem Code: Z12.39; Problem Code Type: ICD-10; MD Livan [address], [place], [address] , [facility] 4 13:45:04 Candidiasis of vagina Completed 201505/13/2023 Problem Code: B37.3; Problem Code Type: ICD-10; MD Livan RODRIGUEZ Dr, [facility] [address] [place] [address] 4 13:45:04 Portal hypertension Active 2015 no ascites or encephalopath y, EGD 2015 (gastric ulcer) [facility] 4 12:47:45 Genitourinary symptoms Completed 201504/17/2016 Problem Code: R39.89; Problem Code Type: ICD-10; Not Available [facility] 3 04:10:10 Screening for malignant neoplasm of colon Completed 201605/13/2023 Problem Code: Z12.11; Problem Code Type: ICD-10; MD Livan RODRIGUEZ Dr, [facility] [address] [place] [address] 4 13:45:04 Pneumonia Completed 201602/15/2017 02/11/2017 - Improved - 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 - s/p tx with azithromycin pt significantly improved RTC if sx worsen/persis t Problem Code: J18.9; Problem Code Type: ICD-10; Not Available [facility] 3 04:10:10 Orthostatic hypotension Active 2017 [facility] 4 12:46:41 Esophageal varices without bleeding Active 2018 small endoscopy 2019 [facility] repeat one year [facility] 4 12:39:42 Hepatic failure Completed 201805/13/2023 Problem Code: K72.90; Problem Code Type: ICD-10; MD Livan RODRIGUEZ Dr, [facility] [address] [place] [address] 4 13:45:04 Acute upper respiratory infection Completed 201811/08/2018 Problem Code: J06.9; Problem Code Type: ICD-10; MD Livan [address] Dr, [place], [address] , [facility] 4 13:45:04 Proteinuria Completed 201805/13/2023 Problem Code: R80.9; Problem Code Type: ICD-10; MD Livan ROD[address] Dr, [place], [address] , [facility] 4 13:45:04 Hyperlipidemi a Active 2018 [facility] 4 12:44:49 Gastroesophag eal reflux disease without esophagitis Active 2019 [facility] 4 12:39:54 Urinary tract infectious disease Completed [...] N39.0; Problem Code Type: ICD-10; Not Available [facility] 3 04:10:12 Nervous system and sense organ diseases Completed 202005/13/[address], [place], [address] , [facility] 4 13:45:04 Fall on or from stairs or steps Completed 202005/27/2020 Problem Code: W10.9xxA; Problem Code Type: ICD-10; Not Available [facility] 3 04:10:12 Knee joint effusion Completed 202006/06/2020 Problem Code: M25.469; Problem Code Type: ICD-10; Not Available [facility] 3 04:10:13 Low back pain Completed 202006/20/2020 Problem Code: M54.5; Problem Code Type: ICD-10; INDIRA YEN Dr, [facility] [address] [facility] 4 14:31:55 Dysuria Completed 202009/03/2020 Problem Code: R30.0; Problem Code Type: ICD-10; Not Available [facility] 3 04:10:13 Psychophysiol ogic insomnia Active 2020 [facility] 4 12:48:07 Dizziness and giddiness Completed 202010/31/2020 Problem Code: R42; Problem Code Type: ICD-10; Not Available [facility] 3 04:10:14 Atrophic vaginitis Active 2020 [facility], [facility] 4 12:37:19 Urinary tract infectious disease Completed 202003/03/2021 Problem Code: N39.0; Problem Code Type: ICD-10; Not Available [facility] 3 04:10:14 Disorder of hematopoietic structure Completed 202105/13/2023 Problem Code: D75.89; Problem Code Type: ICD-10; MD Livan RODRIGUEZ Dr, [facility] [address] [place] [address] 4 13:45:04 Tension-type headache Completed 202105/13/2023 Problem Code: G44.209; Problem Code Type: ICD-10; MD Livan RODRIGUEZ Dr, [facility] [address] [place] [address] 4 13:45:04 Acute conjunctiviti s of left eye Completed 202112/19/2021 12/12/2021 - Comments only - Nat Bryant M.D. - Likely bacterial. Rx sent for e-mycin ointment. Call for reevaluation if worsening, or no better w/in 48 hours. Problem Code: H10.32; Problem Code Type: ICD-10; Not Available [facility] 3 04:10:15 Cerebrovascul ar disease Active 2021 [facility] 4 12:37:49 Urinary tract infectious disease Completed 202208/28/2022 Problem Code: N39.0; Problem Code Type: ICD-10; Not Available [facility] 3 04:10:15 Pneumonia Completed 202211/08/2022 10/29/2022 - Improved - Rupal Barillas MD - But with persistent evidence of congestion in right lung. Advised chest x-ray in a couple of weeks to evaluate for any persistent abnormalities requiring further follow-up. She has not had imaging yet with this infection. Problem Code: J18.9; Problem Code Type: ICD-10; Not Available [facility] 3 04:10:15 Edema Active 2022 Peripheral edema [facility] 4 12:38:42 Castillo's esophagus Active 2022 [facility] 4 12:37:33 Candidiasis of skin Completed 201810/23/2022 Problem Code: B37.2; Problem Code Type: ICD-10; Not Available [facility] 3 04:10:16 Acute atopic conjunctiviti s Completed 201804/21/2019 Problem Code: H10.10; Problem Code Type: ICD-10; Not Available [facility] 3 04:10:16 Constipation Completed 201301/02/2023 Problem Code: K59.00; Problem Code Type: ICD-10; Not Available [facility] 3 04:10:16 Cough Completed 202201/02/2023 Problem Code: R05.8; Problem Code Type: ICD-10; Not Available [facility] 3 04:10:16 Hypertensive disorder Completed 201301/02/2023 Not Available [facility] 3 04:10:17 Neoplasm of urinary bladder Completed 201301/02/2023 Problem Code: D49.4; Problem Code Type: ICD-10; Not Available [facility] 3 04:10:17 Enthesopathy Completed 201812/26/2020 Problem Code: M77.9; Problem Code Type: ICD-10; Not Available [facility] 3 04:10:17 Hypercalcemia Completed 201401/02/2023 Not Available [facility] 3 04:10:18 Lung field abnormal Completed 201607/29/2017 Problem Code: R91.8; Problem Code Type: ICD-10; Not Available [facility] 3 04:10:18 Insomnia Completed 201906/06/2021 Problem Code: F51.09; Problem Code Type: ICD-10; Not Available [facility] 3 04:10:18 Disorder of lung Completed 201710/23/2022 Problem Code: J98.4; Problem Code Type: ICD-10; Not Available [facility] 3 04:10:18 Type 2 diabetes mellitus without complication Completed 201301/02/2023 Problem Code: E11.9; Problem Code Type: ICD-10; Not Available [facility] 3 04:10:19 Pain of left shoulder joint Completed 201406/06/2021 Problem Code: M25.512; Problem Code Type: ICD-10; Not Available [facility] 3 04:10:19 Screening for osteoporosis Completed 201602/11/2017 Problem Code: Z13.820; Problem Code Type: ICD-10; Not Available [facility] 3 04:10:19 Inflamed seborrheic keratosis Completed 201910/23/2022 Problem Code: L82.0; Problem Code Type: ICD-10; Not Available [facility] 3 04:10:20 Disorder of brain Completed 202103/05/2022 Problem Code: G93.40; Problem Code Type: ICD-10; Not Available [facility] 3 04:10:20 Other idiopathic peripheral neuropathy NOS Completed 201301/02/2023 Not Available [facility] 3 04:10:20 Obesity Completed 201301/02/2023 Not Available [facility] 3 04:10:20 Fatigue Completed 201810/27/2018 Problem Code: R53.83; Problem Code Type: ICD-10; Not Available [facility] 3 04:10:21 Genitourinary symptoms Completed 201904/04/2020 Problem Code: R39.9; Problem Code Type: ICD-10; Not Available [facility] 3 04:10:21 Benign paroxysmal positional vertigo Completed 202001/02/2023 Problem Code: H81.10; Problem Code Type: ICD-10; Not Available [facility] 3 04:10:22 Disorder of skin and/or subcutaneous tissue Completed 201904/04/2020 Problem Code: L98.9; Problem Code Type: ICD-10; Not Available [facility] 3 04:10:22 Osteophyte of bone Completed 201906/28/2020 Problem Code: M25.776; Problem Code Type: ICD-10; Not Available [facility] 3 04:10:22 Gastric ulcer Completed 201501/02/2023 Problem Code: K25.9; Problem Code Type: ICD-10; Not Available [facility] 3 04:10:22 Right side sciatica Completed 201804/21/2019 Problem Code: M54.31; Problem Code Type: ICD-10; Not Available [facility] 3 04:10:23 Candidiasis Completed 201308/22/2015 Problem Code: B37.9; Problem Code Type: ICD-10; Not Available [facility] 3 04:10:23 Steatosis of liver Completed 201302/10/2016 Problem Code: K76.0; Problem Code Type: ICD-10; Not Available [facility] 3 04:10:23 Cough Completed 201912/26/2020 Problem Code: R05; Problem Code Type: ICD-10; Not Available [facility] 3 04:10:23 Xerostomia Completed 202006/06/2021 Problem Code: R68.2; Problem Code Type: ICD-10; Gail rodriguez, [facility] 4 12:49:03 Candidal vulvovaginiti s Completed 201301/02/2023 Problem Code: 112.1; Problem Code Type: ICD-9; Not Available [facility] 3 04:10:25 Intestinal disaccharidas e deficiency Completed 201301/02/2023 Problem Code: 271.3; Problem Code Type: ICD-9; Not Available [facility] 3 04:10:25 Acute bronchitis Completed 201912/26/2020 Problem Code: J20.9; Problem Code Type: ICD-10; Not Available [facility] 3 04:10:26 Peripheral nerve disease Completed 201301/02/2023 Not Available [facility] 3 04:10:26 Acute upper respiratory infection Completed 202205/13/2023 Problem Code: J06.9; Problem Code Type: ICD-10; MD Livan RODRIGUEZ Dr [facility] [address] , [facility] 4 13:45:04 Diastolic heart failure Active 2022 echo 03/[address] [facility] [address] , [facility] 3 11:17:46 Chest pain Completed 202205/13/2023 Problem Code: R07.89; Problem Code Type: ICD-10; MD Livan RODRIGUEZ Dr [facility] [address] , [facility] 4 13:45:03 Aortic stenosis, non-rheumatic Active 2022 mild 03/2023 echo MD Livan RODRIGUEZ Dr, [place] [address] , [facility] 06:52:21 Senile hyperkeratosi s Completed 202205/13/2023 Problem Code: L82.1; Problem Code Type: ICD-10; MD Livan RODRIGUEZ Dr, [address] 13:45:03 Melanocytic nevus Completed 202205/13/2023 Problem Code: D22.9; Problem Code Type: ICD-10; MD Livan RODRIGUEZ Dr, [address] 13:45:04 Incoordinatio n Completed 202205/13/2023 01/30/2023 - Comments only - Rupal Barillas MD - neuro exam not c/w CVA; will eval further at next visit. Problem Code: R27.9; Problem Code Type: ICD-10; MD Livan RODRIGUEZ Dr, [address] 4 13:45:03 Dyspnea Completed 202205/13/2023 Problem Code: R06.09; Problem Code Type: ICD-10; MD Livan RODRIGUEZ Dr, [address] 4 13:45:03 Chronic diarrhea Active 2023 Gail rodriguez, [facility] 4 12:37:57 Drug-induced xerostomia Active [address], [address] 4 13:38:38 Microalbuminu dharmesh diabetic nephropathy Active 2023 [facility] 4 12:45:11 Dyspnea on exertion Active 2023 [facility], [facility] 4 12:37:57 Angular cheilitis Active 2023 [facility] 4 12:36:56 Xerostomia Active 2023 [facility] 4 12:49:03 History of adenomatous polyp of colon Active 2020 [facility] 4 12:43:44 Sialoadenitis Completed 202308/09/[address], [facility] [address] , [facility] 4 16:48:36 Low back pain Active 2023 Problem Code: M54.5; Problem Code Type: ICD-10; INDIRA YEN Dr, [place], [address] , [facility] 4 14:31:55 Chest pain on exertion Active [address], [facility] [address] , [facility] 4 12:24:41 Always hungry Active [address], [place], [address] , [facility] 4 16:38:32 Altered bowel function Active [address], [facility] [address] , [facility] 4 16:38:44 Atypical chest pain Active 2023 DORIS JONES MA null, [facility] 4 07:31:04 Acquired thrombocytope shirlene Active [address], [address] 4 09:56:08 Actinic keratosis Active [address], [address] 4 13:34:57 Nodule of lung Active 2023 probable lipoma by PET. 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 MD Livan RODRIGUEZ Dr, [facility] [address] , [facility] 4 06:56:02 Vulvitis Active [address], [address] 4 13:20:01 Thrombocytope lia disorder Active [address], [address] 4 13:23:28 Decompensated cirrhosis of liver Active [address], [address] 4 14:23:47 Notes:Some problems listed i n Document: #[id number] could not be added to this patient's chart. Please review this document and add these problems to the patient's chart manually as needed. Problem Notes None recorded. Procedures Surgical History Date Name Laterality Status Provider Name and Address Organization Details Recorded Time 4 Cryosurgery Warts/Skin Tags completed MD Livan RODRIGUEZ Dr, [facility] [id number], [facility] 10/18/2023 15:47:48 4 Cryosurgery Warts/Skin Tags completed MD Livan RODRIGUEZ Dr, [facility] [id number] [place] [address] 10/07/2023 13:34:27 Imaging Results None recorded. Procedure Notes None recorded. Medical Equipment None Reported. Allergies Allergen ID Allergen Name Allergen Category Reaction Reaction Severity Criticality Documentation Date Start Date Code Code System Note Provider Name and Address Organization Details Recorded Time 67440 erythromy laura medicatio n other moderate Not available 02/15/20232013 4053 RxNorm stoma ch pain [facility] 12:53:11 82740 Bactrim medicatio n itching moderate Not available 08/01/20232013 08128 9 RxNorm itchy skin [facility] 12:51:33 75599 codeine medicatio n itching moderate Not available 08/01/20232013 2670 RxNorm itchy , paran oid [facility] 12:52:07 54770 Demerol medicatio n other moderate Not available 08/01/20232013 75573 1 RxNorm can' t sleep [facility] 12:52:55 33010 simvastat in medicatio n nausea moderate Not available 08/01/20232013 63990 RxNorm (ALLS TATIN S) [facility] 12:53:40 15882 Trulicity medicatio n vomiting moderate low 09/25/2023 67891 96 RxNorm RUPAL BARILLAS MD [address], [place], [address] [place] [address] 12:57:22 Medications Name Sig Start Date Stop [...] once a day 12/[address] [place] [facility] [place] Not [...] Relief 50 mcg/actua tion nasal spray,[employer] [place] 1 spray into both nostrils once a [...] Updated DateTime 4 154.94 cm 25.5 kg/m2 78202.2 5 g 97.6 [degF] 96 % 96 % 83 /min 102 mm[Hg] 58 mm[Hg] Hailey Reyes LPN [facility] 14:58:55 Social History Question Answer Notes LastModified by Organizat ion Details LastModified Time Tobacco Smoking Status Never Smoker GIOVANNA ASIF, [facility] 03/18/2023 15:57:23 Would You Say That, In General, Your Health Is Good [email or web address] Information not available 08/09/2023 How Often Does Anyone, Including Family, Physically Hurt You? Never [email or web address] Information not available 08/09/2023 How Often Does Anyone, Including Family, Insult Or Talk Down To You? Rarely [email or web address] Information no t available 08/09/2023 How Often Does Anyone, Including Family, Threaten You With Harm? Never [email or web address] Information not available 08/09/2023 How Often Does Anyone, Including Family, Scream Or Curse At You? Never [email or web address] Information not available 08/09/2023 Within The Past 12 Months, You Worried That Your Food Would Run Out Before You Got Money To Buy More. Never True Information n ot available 08/09/2023 Within The Past 12 Months, The Food You Bought Just Didn't Last And You Didn't Have Money To Get More. Never True [email or web address] Information not available 08/09/2023 How Hard Is It For You To Pay For The Very Basics Like Food, Housing, Medical Care, And Heating? Would You Say It Is: Somewhat Hard Information not available 08/09/2023 In The Past 12 Months, Has Lack Of Reliable Transportation Kept You From Medical Appointments, Meetings, Work Or From Getting Things Needed For Daily Living? No [email or web address] Information not available 08/09/2023 What Is Your Housing Situation Today? I Have Housing. [email or web address] Information not available 08/09/2023 How Often In The Past Year Have You Used Marijuana (including Smoking, Vaping, Dabbing, Or Edibles)? Never [email or web address] Information not available 08/09/2023 How Often In The Past Year Have You Used Prescription Medications That Were Not Prescribed To You? Never [email or web address] Information not available 08/09/2023 How Often In The Past Year Have You Taken Your Own Prescription Medication More Than The Way It Was Prescribed Or For Different Reasons Than Its Intended Purpose? Never [email or web address] Information not available 08/09/2023 How Often In The Past Year Have You Used Other Drugs (for Example, Heroin, Cocaine, Meth, Salvia, Inhalants)? Never Information not available 08/09/2023 Have You Ever Used IV Drugs? No [email or web address] Information not available 08/09/2023 Date Of Most Recent SBINS 08/09/2023 Information not available 08/09/2023 What Was The Date Of Your Most Recent Tobacco Screening? 10/18/2023 [email or web address] Information n ot available 10/18/2023 Has Tobacco Cessation Counseling Been Provided? No [email or web address] Information not available 10/25/2023 Do You Or Have You Ever Used Any Other Forms Of Tobacco Or Nicotine? No [email or web address] Information not available 03/18/2023 Sex: Female Functional Status None recorded. Mental Status None recorded. Family History Relationship Description Onset Age of this Age Resolved Age Notes Mother Family history of ac sánchez medical disorder Notes:*Problem: Mother: d. 6 7 , cirrhosis, non ETOH Father: d. [place], acute hepatitis Sisters: x1, cirrhosis, non ETOH, [...] preservative free, adsorbed 12/28/2016 completed Not Available [facility] 02/15/2023 05:29:32 Hep A-Hep B 05/11/2016 completed Not Available [facility] 02/15/2023 05:29:32 Hep A-Hep B 02/24/2016 completed Not Available [facility] 02/15/2023 05:29:32 Tdap 07/01/2006 completed Not Available [facility] 05:29:32 Pneumococcal conjugate PCV 13 05/11/2016 completed Not Available [facility] 02/15/2023 05:29:32 Td(adult) unspecified formulation 02/07/1996 completed Not Available [facility] 02/15/2023 05:29:32 Influenza, split virus, trivalent, preservative 12/30/2015 completed Not Available [facility] 02/15/2023 05:29:32 Influenza, split virus, trivalent, preservative 02/21/2015 completed Not Available [facility] 02/15/2023 05:29:32 Influenza, split virus, quadrivalent, PF 01/03/2012 completed Not Available [facility] 02/15/2023 05:29:33 Influenza, split virus, quadrivalent, PF 01/19/2013 completed Not Available [facility] 02/15/2023 05:29:33 Influenza, split virus, quadrivalent, preservative 12/28/2016 completed Not Available [facility] 02/15/2023 05:29:33 Influenza, split virus, quadrivalent, preservative 01/28/2018 completed Not Available [facility] 02/15/2023 05:29:33 Influenza, high-dose, quadrivalent, PF 12/26/2020 completed Not Available [facility] 02/15/2023 05:29:33 COVID-19, mRNA, LNP-S, PF, 100 mcg/0.5mL dose or 50 mcg/0.25mL dose 05/25/2020 completed Not Available [facility] 02/15/2023 05:29:33 COVID-19, mRNA, LNP-S, PF, 100 mcg/0.5mL dose or 50 mcg/0.25mL dose 2020 completed Not Available [facility] 02/15/2023 05:29:33 COVID-19, mRNA, LNP-S, PF, 100 mcg/0.5mL dose or 50 mcg/0.25mL dose 09/05/2021 completed Not Available [facility] 02/15/2023 05:29:33 SARS-COV-2 (COVID-19) vaccine, UNSPECIFIED 02/27/2021 completed Not Available [facility] 02/15/2023 05:29:34 COVID-19, mRNA, LNP-S, bivalent, PF, 30 mcg/0.3 mL dose 09/19/2022 completed Not Available [facility] 02/16/20 05:29:34 COVID-19, mRNA, LNP-S, bivalent, PF, 30 mcg/0.3 mL dose 03/05/2022 completed Not Available [facility] 02/16/20 05:29:34 pneumococcal polysaccharide PPV23 07/01/2006 completed Not Available [facility] 2022 05:29:34 pneumococcal polysaccharide PPV23 02/21/2015 completed Not Available [facility] 2022 05:29:34 pneumococcal polysaccharide PPV23 03/11/2001 completed Not Available [facility] 2022 05:29:34 Hep B, adult 09/28/2016 completed Not Available [facility] 02/15/2023 05:29:34 influenza, unspecified formulation 01/12/2008 completed Not Available [facility] 02/15/2023 05:29:34 influenza, unspecified formulation 02/01/2014 completed Not Available [facility] 02/15/2023 05:29:34 influenza, unspecified formulation 02/12/2019 completed Not Available [facility] 02/15/2023 05:29:35 Influenza, high-dose, quadrivalent, PF 01/24/2023 completed Not Available [facility] 04/19/2023 05:31:38 COVID-19, mRNA, LNP-S, PF, mayito-sucrose, 30 mcg/0.3 mL 01/30/2023 completed Not Available [facility] 04/19/2023 05:31:38 Past Encounters Encounter ID Performer Location Encounter Start Date Encounter Closed Date Diagnosis/Indication Diagnosis SNOMED-CT Code [id number] RUPAL BARILLAS MD [address] [address] 09/24/2023 15:53:59 09/24/2023 16:41:26 Always hungry [id number] Altered reuben wel function 49171613 History of adenomatous polyp of colon 857040434 [id number] RUPAL BARILLAS MD [address] [address] 10/07/2023 12:38:43 10/07/2023 13:32:27 Actinic keratosis 080997591 Acquired thrombocytopenia 45230020 Nodule of lung 976238728 Chest pain on exertion 59314853 Minimal co gnitive impairment 093815205 New daily persistent headache 763470998855649 [id number] RUPAL BARILLAS MD [address] [address] 10/18/2023 14:36:15 10/18/2023 15:35:43 Restless legs 43407303 Lichen scl erosus of vulva 196505963 Milia 977498644 Actinic keratosis 684174 007 Health Concerns Section Related Observation LastModified by Organization Detai ls LastModified Time None Recorded Concern Status LastModified by Organization Details LastModified Time None Recorded Payers Encounter Date Sequence Insurance Name Policy Number Policy Lucas Covered Member ID Lucas Member ID Guarantor Name 10/18/2023 1 [id number]/A [place]ANTAGE - PPO) [id number] Milka Corbett [id number] Milka Corbett Notes Date Note Type Note Provider Name and Address Organization Details Recorded Time 10/18/2023 text/html HPI Notes: Dayan nt here with several skin concerns. She [...] has a bladder infection. She tried an tztw-oun-trbeeoq yeast cream without improvement. Gtae-uxy-jwspheb hydrocortisone cream has helped some. Symptoms started about 2 weeks ago. She started on Jardiance about 2 months ago. She has a PET scan scheduled for the to evaluate enlarging pulmonary nodule, and hematology is working to schedule her with an eval at [facility] due to chronic thrombocytopenia in the [...] to sleep well. MD Livan RODRIGUEZ Dr, [place], [address], [facility]. 10/18/2023 15:53:28 OBGyn Episode No OBEpisode recorded.
--- OUTSIDE RECORDS SUMMARY | 2023-12-02 18:33 | XMS_ITS | Encounter Summary ---
Author Organization [facility] Address [facility] [place] [address] Care Team Providers Care Founder And Chief Technical Officer Name Role Phone Salome Mcarthur APRN Primary Care Provider [phone] Reason for Visit * Reason Comments Medication Refill Encounter Details Date Type Department Care Team (Late st Contact Info) Description 10/23/2023 Refill [place] [phone] Molly Cui [facility] [place] [address] Portal hypertension Social History Tobacco Use Types Packs/Day Years [...] 02/06/2024 11:30 AM EDT Appointment [place] [phone] Molly Cui [facility] [place] [address] 02/06/2024 12:15 PM EDT Laboratory Appointment Lab [address] [place] [phone] 02/06/2024 1:30 PM EDT Office [place] [address] Molly Cui APRN [facility] [place] [address] documented as of this encounter Visit Diagnoses Diagnosis Portal hypertension documented in this encounter Care Teams Founder And Chief Technical Officer Relationship Specialty Start Date End Date Salome Mcarthur APRN [address] [place] [address] PCP - General Family Medicine 05/30/15 documented as of this encounter
--- OUTSIDE RECORDS SUMMARY | 2023-12-02 18:33 | XMS_ITS | Continuity of Care Document ---
Author Organization [place] - [facility], [facility] Address [address] [place] [address] Care Team Providers Care Educational Technology Specialist Name Role Phone CRYSTAL ORTEGA Rotary Derrick Operator LANI WALLIS Wash Operator Assessment Encounter Date Assessment Date Assessment LastModified by Organization Details LastModified Time 10/07/2023 10/07/2023 Med review: Patient may be taking metoprolol still in addition to carvedilol, was advised to stop the former. She was unsure which Jardiance dose she was taking, I advised she take 25 mg and will discontinue the 10 mg from her med list. The total time devoted to today's encounter, including both the ftde-mp-ogly time with the patient and/or family/caregiv er and dbp-yllj-lq-fa ce time I personally spent is 50 minutes. [email or web address] Not available 10/07/2023 16:32:02 Plan of Treatment Reminders Order Date Submit [...] recorded . Surgeries None recorded . Imaging PET-CT, skull base to mid-thig h scan - LLL nodule has doubled in size, now 2cm diameter . (images done at [facility]) eval for malignan cy. 2023 024 [facility], [facility] [place], [address], 10/24/2023 16:09:17 Medication Orders None recorded . Patient TargetsNo targets recorded. Patient InstructionsNo instructions recorded. Reason for Referral Physical Therapist Referral for Vertigo referral made at patient's request Referring Physician: Rupal Barillas [facility], Encounter Date: 08/20/2023 pt with compensated cirrhosi s with chronic thrombocytopenia, may need cardiac stent and cards (Dr. Ortega) concerned whether she could tolerate dual anti-PLT agents. Pls eval. Semi-urgent. Referring Physician: Rupal Barillas [facility], Encounter Date: 10/07/2023 Results Created Date Observation Date Name Description Value Unit Range Abnormal Flag Note LastModifiedBy Organization Detail LastModifiedTime 10/01/19 24 09/30/2023 xr chest nik ble or 1V [facility] [place] [id number] INFINI TT PACS TRANSC RIPTIO N REPORT _ Patien t Name: CRISTEL SEGUNDO MRN: Sex: : Age: [id number] F [id number] Accoun t: Access ion: Admit: StayTy pe: [id number] E Ravinder d: Order ID: Submit nate: Ordergwendolyn ng Provid er: 2023 22:41 [id number] LUIS A CAMPOS nate: Techno logist : [...] signed by: Kris Ferguson ed: 2023 09:[address] (Lab) [address] [place] [address], [address], 10/01/2023 16:07:13 10/01/19 24 10/01/2023 CT angio chest ABD pelvi s W IV contr * [facility] [place] [address] INFINI TT PACS TRANSC RIPTIO N REPORT _ Patien t Name: CRISTEL SEGUNDO MRN: Sex: : Age: [id number] F [id number] Accoun t: Access ion: Admit: StayTy pe: [id number] E Ravinder d: Order ID: Submit nate: David ng Provid er: 2023 23:30 [id number] LUIS A VEGA nate: Techno logist : [...] signed by: Kris Ferguson ed: 2023 09:[address] (Lab) [address] [place], [address], 10/01/2023 16:07:14 10/01/19 24 09/30/2023 EKG order yony ng 12 lead [facility] [place] [address] EKG TRANSC RIPTIO N REPORT _ Accoun t: Access ion: Admit: StayTy pe: [id number] E/R Observ ation: Order ID: Submit nate: David aly Provid er: 2023 22:33 [id number] LUIS A FLANNERY _ [place] [id number] [facility] Test Date: 09-29 Pat Name: KAYLEE Khan Depart ment: Keeley bermudez ID: [id number] Room: ED TR Gender : Yue Reardon perri: JG : 1941-0 -17 Reques nate By: LUIS A Khan Order Number : [id number] Kelby mcdaniels MD: Adi rothman Measur ements Interv als [place] Rate: 94 P: 67 TN: 192 QRS: -21 QRSD: 90 T: 0 QT: 368 QTc: 460 Interp retive Statem ents Normal sinus rhythm Compar ed to ECG 2023 10:56: 00 No signif icant change s Electr onical ly Signed On 024 9:48:5 6 EDT by Adi holly [facility] (Lab) [address] [place], [address], 10/01/2023 16:07:13 10/17/19 24 10/02/2023 EKG order yony aly 12 lead [facility] [place] [id number] EKG TRANSC RIPTIO N REPORT _ Accoun t: Access ion: Admit: StayTy pe: [id number] [facility] Observ ation: Order ID: Submit nate: David aly Provid er: 2023 09:52 [id number] HENRRY RENEE _ [place] [id number] [facility] Cardio logy Test Date: 10-01 Pat Name: KAYLEE Khan Depart ment: [facility]io [facility]y Clinic Patien t ID: [id number] Room: Gender : Yue Techngwendolyn perri: [facility] home : [birth year] Reques nate By: HENRRY Mcdaniels Order Number : [id number] Kelby mcdaniels MD: Jung Corona Measur ements Interv als [place] Rate: 77 P: 61 TN: 194 QRS: -21 QRSD: 86 T: 0 QT: 394 QTc: 445 Interp retive Statem ents Normal sinus rhythm Compar ed to ECG 2023 22:33: 49 No signif icant change s Electr onical ly Signed On 024 15:33: 04 EDT by Jung mendez[address] [place] [address] (Lab) [address] [place], [address], 10/18/2023 07:53:24 10/24/19 24 10/24/2023 PET-C T, skull base to mid-t high scan No observ ation record ed. [email or web address] [address] [place], [address], 10/29/2023 13:01:17 11/14/19 24 11/13/2023 EKG order yony ng 12 lead [facility] [place] [address] EKG TRANSC RIPROYCE N REPORT _ Accoun t: Access ion: Admit: StayTy pe: [id number] 11/13/19 24 [facility] Observ ation: Order ID: Submit nate: David aly Provid er: 2023 09:24 [id number] HENRRY RENEE _ [place] [id number] [facility] Cardio logy Test Date: 11-12 Pat Name: KAYLEE Khan Depart ment: Cardio logy Clinic Patimarisol t ID: [id number] Room: Gender : F Techni perri: [place] home : 1939 06-22 Reques nate By: HENRRY Mcdaniels Order Number : [id number] Kelby mcdaniels MD: Henrry Ortega Measur ements Interv als [place] Rate: 75 P: 70 TN: 204 QRS: -19 QRSD: 88 T: 0 QT: 404 QTc: 451 Interp retive Statem ents Normal sinus rhythm Low voltag e QRS Compar ed to ECG 2023 09:52: 35 Low QRS voltag e now presen t Electr onical ly Signed On 11-14-19 16:49: 58 EDT by Henrry Ortega [email or web address] (Lab) [address] [place] [address], [address], 11/15/2023 12:39:20 Result Notes None recorded. Problems Name Problem SNOMED Code Status Onset Date Resolution Date Notes Provider Name and Address Organization Details Recorded Time Shannon crawford [id number] Completed 201305/13/2023 Problem Code: I10; Problem Code Type: ICD-10; MD Livan [address], [place], [address] , [facility] 4 13:45:04 Migraine 59856191 Active 2013 [facility] 4 12:45:27 History of disorder of digestiv e system 774344912 Completed 201305/13/2023 Problem Code: Z87.19; Problem Code Type: ICD-10; MD Livan [address], [place], [address] , [facility] 4 13:45:04 Restless legs 95267867 Active 2013 Gail rodriguez, [facility] 4 12:48:18 Disorder of nervous system due to type 2 diabetes mellitus 648453487 Completed 201305/13/2023 04/27/19 20 - Comments only [...] Code Type: ICD-10; MD Livan RODRIGUEZ Dr, [facility] [address] , [facility] 4 13:45:04 Allergic rhinitis 48410429 Completed 201305/13/2023 Problem Code: J30.9; Problem Code Type: ICD-10; MD Livan RODR[address]UEZ Dr, [facility] [address] [place] [address] 4 13:45:04 Mixed hyperlip idemia 418276239 Active 2013 Gail rodriguez, [facility] 4 12:45:48 Neuropat hy due to type 2 diabetes mellitus 69070796896 9106 Active 2013 [facility] 4 12:46:16 Intolera nce to lactose 357041617 Completed 201305/13/2023 Problem Code: E73.9; Problem Code Type: ICD-10; MD Livan RODR[address]UEZ Dr, [facility] [address] , [facility] 4 13:45:04 Heart murmur 90975317 Active [address], [facility] [address] , [facility] 4 06:52:52 History of malignan t neoplasm of bladder 132333556 Active 2013, recurren ce 2008, Dr. Boykin, chemo instilla tion, [facility] 4 12:43:10 History of nutritio nal disorder 086227637 Completed 201405/13/2023 RUPAL BARILLAS MD [address], [place], [address] , [facility] 4 13:45:04 Irritabl e bowel syndrome 92128781 Active 2014 [facility] 4 12:45:06 Eczema 53813292 Active 2014 [facility] 4 12:38:10 Hernia of abdomina l cavity 13863351 Active 2015 [facility] 4 12:41:15 Cirrhosi s of liver 98441316 Completed 201505/13/2023 09/22/19 20 - Comments only - Nat Bryant M.D. - Has gained some weight, and possibly has ascites, although I have never examined her before. Follow-u p as planned tomorrow for imaging, labs, and speciali [facility] ent at [facility]. Problem Code: K74.69; Problem Code Type: ICD-10; MD Livan R[address], [place], [address] , [facility] 4 13:45:04 History of urinary tract infectio n 71627505310 07 Completed 201505/13/2023 08/03/19 16 - Comments [...] Code Type: ICD-10; MD Livan RODRIGUEZ Dr, [address] 4 13:45:04 Screenin g for malignan t neoplasm of breast Completed 201505/13/2023 Problem Code: Z12.39; Problem Code Type: ICD-10; MD Livan RODRIGUEZ Dr, [address] 4 13:45:04 Candidia sis of vagina 67588721 Completed 201505/13/2023 Problem Code: B37.3; Problem Code Type: ICD-10; MD Livan RODRIGUEZ Dr, [address] 4 13:45:04 Portal hyperten eugene 64489437 Active 2015 no ascites or encephal opathy, EGD 2015 (gastric ulcer) [facility] 4 12:47:45 Genitour inary symptoms 698859091 Completed 201504/17/2016 Problem Code: R39.89; Problem Code Type: ICD-10; Not Available [facility] 3 04:10:10 Screenin g for malignan t neoplasm of colon Completed 201605/13/2023 Problem Code: Z12.11; Problem Code Type: ICD-10; MD Livan RODRIGUEZ Dr, [address] 4 13:45:04 Pneumoni a 145996861 Completed 201602/15/2017 02/12/20 17 - Improved - 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 Active 2018 small endoscop y 2019 [facility] repeat one year [facility] 4 12:39:42 Hepatic failure 11943527 Completed 201805/13/2023 Problem Code: K72.90; Problem Code Type: ICD-10; MD Livan RODRIGUEZ Dr, [facility] [address] [place] [address] 4 13:45:04 Acute upper respirat ory infectio n 47402390 Completed 201811/08/2018 Problem Code: J06.9; Problem Code Type: ICD-10; MD Livan RODRIGUEZ Dr, [facility] [address] , [facility] 4 13:45:04 Proteinu vinod 07573739 Completed 201805/13/2023 Problem Code: R80.9; Problem Code Type: ICD-10; MD Livan R[address], [place], [address] [place] [address] 4 13:45:04 Hyperlip idemia 96253023 Active 2018 [facility] 4 12:44:49 Gastroes ophageal reflux disease without esophagi tis 885292509 Active 2019 Corydon aLvern [facility] 4 12:39:54 Urinary tract infectio us disease 95745602 Completed 201909/29/2019 09/22/19 20 - Comments only - Nat Bryant M.D. - UA positive for leuks, blood, nitrites . Unfortun ately, was not able to provide large enough sample to send for culture. Urine culture from recent hospital ization showed pansensi tive E. coli, so we will treat as they did with cephalex in. Instruct ed her to call with janett mcdaniels or sharona garcia. Problem Code: N39.0; Problem Code Type: ICD-10; Not Available [facility] 3 04:10:12 Nervous system and sense organ diseases 743186224 Completed 202005/13/2023 RUPAL BARILLAS MD [address], [place], [address] , [facility] 4 13:45:04 Fall on or from stairs or steps Completed 202005/27/2020 Problem Code: W10.9xxA ; Problem Code Type: ICD-10; Not Available [facility] 3 04:10:12 Knee joint effusion 483105717 Completed 202006/06/2020 Problem Code: M25.469; Problem Code Type: ICD-10; Not Available [facility] 3 04:10:13 Low back pain 874593658 Completed 202006/20/2020 Problem Code: M54.5; Problem Code Type: ICD-10; INDIRA YEN [address], [place], [address] , [facility] 4 14:31:55 Dysuria 19342068 Completed 202009/03/2020 Problem Code: R30.0; Problem Code Type: ICD-10; Not Available [facility] 3 04:10:13 Psychoph ysiologi c insomnia 194389929 Active 2020 Insomnia , chronic Gail [facility], [facility] 4 12:48:07 Dizzines s and giddines s 965754626 Completed 202010/31/2020 Problem Code: R42; Problem Code Type: ICD-10; Not Available [facility] 3 04:10:14 Atrophic vaginiti s 90637676 Active 2020 [facility] 4 12:37:19 Urinary tract infectio us disease 23539176 Completed 202003/03/2021 Problem Code: N39.0; Problem Code Type: ICD-10; Not Available [facility] 3 04:10:14 Disorder of hematopo ietic structur e 436165668 Completed 202105/13/2023 Problem Code: D75.89; Problem Code Type: ICD-10; RUPAL BARILLAS MD [address], [address] 4 13:45:04 Tension- type headache 857018325 Completed 202105/13/2023 Problem Code: G44.209; Problem Code Type: ICD-10; RUPAL BARILLAS MD [address], [address] 4 13:45:04 Acute conjunct ivitis of left eye 41071210048 9105 Completed 202112/19/2021 12/13/19 22 - Comments only - Nat Bryant M.D. - Likely bacteria l. Rx sent for e-mycin ointment . Call for reevalua tion if worsenin g, or no better w/in 48 hours. Problem Code: H10.32; Problem Code Type: ICD-10; Not Available [facility] 3 04:10:15 Cerebrov ascular disease 06136815 Active 2021 [facility] 4 12:37:49 Urinary tract infectio us disease 96757610 Completed 202208/28/2022 Problem Code: N39.0; Problem Code Type: ICD-10; Not Available [facility] 3 04:10:15 Pneumoni a 453927209 Completed 202211/08/2022 10/30/19 23 - Improved - Rupal Barillas MD - But with persiste nt evidence of congesti on in right lung. Advised chest x-ray in a couple of weeks to evaluate for any persiste nt abnormal ities requirin g further follow-u p. She has not had imaging yet with this infectio n. Problem Code: J18.9; Problem Code Type: ICD-10; Not Available [facility] 3 04:10:15 Edema 496349267 Active 2022 Peripher al edema [facility] 4 12:38:42 Castillo' s esophagu s 466983848 Active 2022 [facility], [facility] 4 12:37:33 Candidia sis of skin 13734615 Completed 201810/23/2022 Problem Code: B37.2; Problem Code Type: ICD-10; Not Available [facility] 3 04:10:16 Acute atopic conjunct ivitis 51606540 Completed 201804/21/2019 Problem Code: H10.10; Problem Code Type: ICD-10; Not Available [facility] 3 04:10:16 Constipa tion 58976975 Completed 201301/02/2023 Problem Code: K59.00; Problem Code Type: ICD-10; Not Available [facility] 3 04:10:16 Cough 97730183 Completed 202201/02/2023 Problem Code: R05.8; Problem Code Type: ICD-10; Not Available [facility] 3 04:10:16 Hyperten sive disorder 85367519 Completed 201301/02/2023 Not Available [facility] 3 04:10:17 Neoplasm of urinary bladder 640435767 Completed 201301/02/2023 Problem Code: D49.4; Problem Code Type: ICD-10; Not Available [facility] 3 04:10:17 Enthesop athy 62014337 Completed 201812/26/2020 Problem Code: M77.9; Problem Code Type: ICD-10; Not Available [facility] 3 04:10:17 Hypercal cemia 98921878 Completed 201401/02/2023 Not Available [facility] 3 04:10:18 Lung field abnormal 186432929 Completed 201607/29/2017 Problem Code: R91.8; Problem Code Type: ICD-10; Not Available [facility] 3 04:10:18 Insomnia 272932938 Completed 201906/06/2021 Problem Code: F51.09; Problem Code Type: ICD-10; Not Available [facility] 3 04:10:18 Disorder of lung 92827084 Completed 201710/23/2022 Problem Code: J98.4; Problem Code Type: ICD-10; Not Available [facility] 3 04:10:18 Type 2 diabetes mellitus without complica tion 678813415 Completed 201301/02/2023 Problem Code: E11.9; Problem Code Type: ICD-10; Not Available [facility] 3 04:10:19 Pain of left shoulder joint 16176588304 422611 Completed 201406/06/2021 Problem Code: M25.512; Problem Code Type: ICD-10; Not Available [facility] 3 04:10:19 Screenin g for osteopor osis Completed 201602/11/2017 Problem Code: Z13.820; Problem Code Type: ICD-10; Not Available [facility] 3 04:10:19 Inflamed seborrhe ic keratosi s 350420875 Completed 201910/23/2022 Problem Code: L82.0; Problem Code Type: ICD-10; Not Available [facility] 3 04:10:20 Disorder of brain 23053227 Completed 202103/05/2022 Problem Code: G93.40; Problem Code Type: ICD-10; Not Available [facility] 3 04:10:20 Other idiopath ic peripher al neuropat hy NOS Completed 201301/02/2023 Not Available [facility] 3 04:10:20 Obesity 467100986 Completed 201301/02/2023 Not Available [facility] 3 04:10:20 Fatigue 89589554 Completed 201810/27/2018 Problem Code: R53.83; Problem Code Type: ICD-10; Not Available [facility] 3 04:10:21 Genitour inary symptoms 383862555 Completed 201904/04/2020 Problem Code: R39.9; Problem Code Type: ICD-10; Not Available [facility] 3 04:10:21 Benign paroxysm al position al vertigo 506942967 Completed 202001/02/2023 Problem Code: H81.10; Problem Code Type: ICD-10; Not Available [facility] 3 04:10:22 Disorder of skin and/or subcutan eous tissue 77499745 Completed 201904/04/2020 Problem Code: L98.9; Problem Code Type: ICD-10; Not Available [facility] 3 04:10:22 Osteophy te of bone 62194474367 9100 Completed 201906/28/2020 Problem Code: M25.776; Problem Code Type: ICD-10; Not Available [facility] 3 04:10:22 Gastric ulcer 652868647 Completed 201501/02/2023 Problem Code: K25.9; Problem Code Type: ICD-10; Not Available [facility] 3 04:10:22 Right side sciatica 70424919714 9101 Completed 201804/21/2019 Problem Code: M54.31; Problem Code Type: ICD-10; Not Available [facility] 3 04:10:23 Candidia sis 43039073 Completed 201308/22/2015 Problem Code: B37.9; Problem Code Type: ICD-10; Not Available [facility] 3 04:10:23 Steatosi s of liver 142129900 Completed 201302/10/2016 Problem Code: K76.0; Problem Code Type: ICD-10; Not Available [facility] 3 04:10:23 Cough 13268034 Completed 201912/26/2020 Problem Code: R05; Problem Code Type: ICD-10; Not Available [facility] 3 04:10:23 Xerostom ia 33738028 Completed 202006/06/2021 Problem Code: R68.2; Problem Code Type: ICD-10; Gail rodriguez, [facility] 4 12:49:03 Candidal vulvovag initis 20260093 Completed 201301/02/2023 Problem Code: 112.1; Problem Code Type: ICD-9; Not Available [facility] 3 04:10:25 Intestin al disaccha ridase deficien cy 46479482 Completed 201301/02/2023 Problem Code: 271.3; Problem Code Type: ICD-9; Not Available [facility] 3 04:10:25 Acute bronchit is 04056916 Completed 201912/26/2020 Problem Code: J20.9; Problem Code Type: ICD-10; Not Available [facility] 3 04:10:26 Peripher al nerve disease 970283700 Completed 201301/02/2023 Not Available [facility] 3 04:10:26 Acute upper respirat ory infectio n 12031742 Completed 202205/13/2023 Problem Code: J06.9; Problem Code Type: ICD-10; MD Livan RODRIGUEZ Dr [facility] [address] , [facility] 4 13:45:04 Diastoli c heart failure 754408668 Active 2022 echo 03/[address] [facility] [address] , [facility] 3 11:17:46 Chest pain 42677612 Completed 202205/13/2023 Problem Code: R07.89; Problem Code Type: ICD-10; MD Livan RODRIGUEZ Dr [place] [address] , [facility] 4 13:45:03 Aortic stenosis , non-rheu matic 468661642 Active 2022 mild 03/2023 echo MD Livan RODRIGUEZ Dr, [address] 06:52:21 Senile hyperker atosis 625971261 Completed 202205/13/2023 Problem Code: L82.1; Problem Code Type: ICD-10; MD Livan RODRIGUEZ Dr, [address] 13:45:03 Melanocy tic nevus 791958647 Completed 202205/13/2023 Problem Code: D22.9; Problem Code Type: ICD-10; MD Livan RODRIGUEZ Dr, [address] 13:45:04 Incoordi nation 189201210 Completed 202205/13/2023 01/31/20 23 - Comments only - Rupal Barillas MD - neuro exam not c/w CVA; will eval further at next visit. Problem Code: R27.9; Problem Code Type: ICD-10; MD Livan RODRIGUEZ Dr, [address] 13:45:03 Dyspnea 757614819 Completed 202205/13/2023 Problem Code: R06.09; Problem Code Type: ICD-10; MD Livan RODRIGUEZ Dr, [address] 4 13:45:03 Chronic diarrhea 321334658 Active 2023 Gail rodirguez, [facility] 12:37:57 Drug-ind uced xerostom ia 087123882 Active [address], [place], [address] , [facility] 4 13:38:38 Microalb uminuric diabetic nephropa thy 825876436 Active 2023 [facility] 4 12:45:11 Dyspnea on exertion 31398175 Active 2023 [facility], [facility] 4 12:37:57 Angular cheiliti s 976771951 Active 2023 [facility] 4 12:36:56 Xerostom ia 75378278 Active 2023 [facility] 4 12:49:03 History of adenomat ous polyp of colon 737941807 Active 2020 [facility] 4 12:43:44 Sialoade nitis 39143090 Completed 202308/09/[address], [place], [address] , [facility] 16:48:36 Low back pain 282549975 Active 2023 Problem Code: M54.5; Problem Code Type: ICD-10; AMADEONIA GLEASON, AIR/OCEAN EXPORT CLERK [address], [place], [address] , [facility] 4 14:31:55 Chest pain on exertion 61385825 Active [address], [place], [address] , [facility] 12:24:41 Always hungry 825585346 Active [address], [facility] [address] , [facility] 4 16:38:32 Altered bowel function 78094422 Active [address], [address] 4 16:38:44 Atypical chest pain 453537103 Active 2023 DORIS JONES MA null, [facility] 4 07:31:04 Acquired thromboc ytopenia 81606916 Active [address], [address] 4 09:56:08 Actinic keratosi s 191557376 Active [address], [address] 4 13:34:57 Nodule of lung 037448605 Active 2023 probable lipoma by PET. (benign) MD [address]ivan ROD[address]UE[address] Dr, [place] [address] , [facility] 4 06:49:28 Minimal cognitiv e impairme nt 554498938 Active [address], [place] [address] , [facility] 4 15:05:52 New daily persiste nt headache 53131898653 9105 Active [address], [address] 4 16:29:33 Lichen sclerosu s of vulva 188804654 Active [address], [facility] [address] , [facility] 15:22:25 Milia 448739091 Active [address], [facility] [address] , [facility] 4 15:51:39 Obstruct keshia sleep apnea syndrome 05721662 Active 2023 DORIS JONES MA null, [facility] 4 09:39:29 Atherosc lerosis Active 2023 DORIS JONES MA null, [facility] 4 09:39:44 Cirrhosi s - non-alco holic 929033680 Active 2023 with esoph varices and low PLT but no ascites, jaundice or sx. MD [address]ivan [address], [place], [address] , [facility] 4 06:56:02 Vulvitis 11176089 Active [address], [place], [address] , [facility] 4 13:20:01 Thromboc ytopenic disorder 827199837 Active [address], [place], [address] , [facility] 4 13:23:28 Decompen sated cirrhosi s of liver 155255198 Active [address], [facility] [address] , [facility] 4 14:23:47 Notes:Some problems listed i n Document: #[id number] could not be added to this patient's chart. Please review this document and add these problems to the patient's chart manually as needed. Problem Notes None recorded. Procedures Surgical History Date Name Laterality Status Provider Name and Address Organization Details Recorded Time 4 Cryosurgery Warts/Skin Tags completed MD Livan [address], [place], [address], [facility] 10/18/2023 15:47:48 4 Cryosurgery Warts/Skin Tags completed MD Livan [address], [place], [address], [facility] 10/07/2023 13:34:27 Imaging Results None recorded. Procedure Notes None recorded. Medical Equipment None Reported. Allergies Allergen ID Allergen Name Allergen Category Reaction Reaction Severity Criticality Documentation Date Start Date Code Code System Note Provider Name and Address Organization Details Recorded Time 26463 erythromy laura medicatio n other moderate Not available 02/15/20232013 4053 RxNorm stoma ch pain [facility] 12:53:11 42496 Bactrim medicatio n itching moderate Not available 08/01/20232013 54096 9 RxNorm itchy skin [facility] 12:51:33 29913 codeine medicatio n itching moderate Not available 08/01/20232013 2670 RxNorm itchy , paran oid [facility] 12:52:07 20942 Demerol medicatio n other moderate Not available 08/01/20232013 74179 1 RxNorm can' t sleep [facility] 12:52:55 70667 simvastat in medicatio n nausea moderate Not available 08/01/20232013 26974 RxNorm (ALLS TATIN S) [facility] 4 12:53:40 17995 Trulicity medicatio n vomiting moderate low 09/25/2023 55337 96 RxNorm MD Livan [address], [place], [address], [facility] 4 12:57:22 Medications Name Sig Start Date [...] Available Not Available No t Available azithromy larua 250 mg tablet Take 2 by mouth [...] once a day 12/[address] [place], [facility] August 2022 OV Not Available Not [...] e Nataliia Pen Needle 32 gauge x /32 Use 1 needle subcutan eously twice a [...] Relief 50 mcg/actua tion nasal spray,moraima pension Marianna 1 spray into both nostrils once a [...] Updated DateTime 4 154.94 cm 25.7 kg/m2 41840.5 6 g 97.7 [degF] 97 % 97 % 92 /min 136 mm[Hg] 68 mm[Hg] Hailey Reyes LPN [facility] 13:02:05 Social History Question Answer Notes LastModified by Organizat ion Details LastModified Time Tobacco Smoking Status Never Smoker MARY PRETTY MA [facility], [facility] 03/18/2023 15:57:23 Would You Say That, In General, Your Health Is Good [email or web address] Information not available 08/09/2023 How Often Does Anyone, Including Family, Physically Hurt You? Never [email or web address] Information not available 08/09/2023 How Often Does Anyone, Including Family, Insult Or Talk Down To You? Rarely [email or web address] Information no t available 08/09/2023 How Often Does Anyone, Including Family, Threaten You With Harm? Never [email or web address] Information not available 08/09/2023 How Often Does Anyone, Including Family, Scream Or Curse At You? Never [email or web address] Information not available 08/09/2023 Within The Past 12 Months, You Worried That Your Food Would Run Out Before You Got Money To Buy More. Never True [email or web address] Information n ot available 08/09/2023 Within The Past 12 Months, The Food You Bought Just Didn't Last And You Didn't Have Money To Get More. Never True [email or web address] Information not available 08/09/2023 How Hard Is It For You To Pay For The Very Basics Like Food, Housing, Medical Care, And Heating? Would You Say It Is: Somewhat Hard [email or web address] Information not available 08/09/2023 In The Past 12 Months, Has Lack Of Reliable Transportation Kept You From Medical Appointments, Meetings, Work Or From Getting Things Needed For Daily Living? No [email or web address] Information not available 08/09/2023 What Is Your Housing Situation Today? I Have Housing. [email or web address] Information not available 08/09/2023 How Often In The Past Year Have You Used Marijuana (including Smoking, Vaping, Dabbing, Or Edibles)? Never [email or web address] Information not available 08/09/2023 How Often In The Past Year Have You Used Prescription Medications That Were Not Prescribed To You? Never [email or web address] Information not available 08/09/2023 How Often In The Past Year Have You Taken Your Own Prescription Medication More Than The Way It Was Prescribed Or For Different Reasons Than Its Intended Purpose? Never [email or web address] Information not available 08/09/2023 How Often In The Past Year Have You Used Other Drugs (for Example, Heroin, Cocaine, Meth, Salvia, Inhalants)? Never [email or web address] Information not available 08/09/2023 Have You Ever Used IV Drugs? No [email or web address] Information not available 08/09/2023 Date Of Most Recent SBINS 08/09/2023 [email or web address] Information not available 08/09/2023 What Was The Date Of Your Most Recent Tobacco Screening? 10/18/2023 [email or web address] Information n ot available 10/18/2023 Has Tobacco Cessation Counseling Been Provided? No Information not available 10/25/2023 Do You Or Have You Ever Used Any Other Forms Of Tobacco Or Nicotine? No Information not available 03/18/2023 Sex: Female Functional Status None recorded. Mental Status None recorded. Family History Relationship Description Onset Age of this Age Resolved Age Notes Mother Family history of ac tatitlek medical disorder Notes:*Problem: Mother: d. 6 7 , cirrhosis, non ETOH Father: d. [place], acute hepatitis Sisters: x1, cirrhosis, non ETOH, [...] preservative free, adsorbed 12/28/2016 completed Not Available [facility] 02/15/2023 05:29:32 Hep A-Hep B 05/11/2016 completed Not Available [facility] 02/15/2023 05:29:32 Hep A-Hep B 02/24/2016 completed Not Available [facility] 02/15/2023 05:29:32 Tdap 07/01/2006 completed Not Available [facility] 05:29:32 Pneumococcal conjugate PCV 13 05/11/2016 completed Not Available [facility] 02/15/2023 05:29:32 Td(adult) unspecified formulation 02/07/1996 completed Not Available [facility] 02/15/2023 05:29:32 Influenza, split virus, trivalent, preservative 12/30/2015 completed Not Available [facility] 02/15/2023 05:29:32 Influenza, split virus, trivalent, preservative 02/21/2015 completed Not Available [facility] 02/15/2023 05:29:32 Influenza, split virus, quadrivalent, PF 01/03/2012 completed Not Available [facility] 02/15/2023 05:29:33 Influenza, split virus, quadrivalent, PF 01/19/2013 completed Not Available [facility] 02/15/2023 05:29:33 Influenza, split virus, quadrivalent, preservative 12/28/2016 completed Not Available [facility] 02/15/2023 05:29:33 Influenza, split virus, quadrivalent, preservative 01/28/2018 completed Not Available [facility] 02/15/2023 05:29:33 Influenza, high-dose, quadrivalent, PF 12/26/2020 completed Not Available [facility] 02/15/2023 05:29:33 COVID-19, mRNA, LNP-S, PF, 100 mcg/0.5mL dose or 50 mcg/0.25mL dose 05/25/2020 completed Not Available [facility] 02/15/2023 05:29:33 COVID-19, mRNA, LNP-S, PF, 100 mcg/0.5mL dose or 50 mcg/0.25mL dose 2020 completed Not Available [facility] 02/15/2023 05:29:33 COVID-19, mRNA, LNP-S, PF, 100 mcg/0.5mL dose or 50 mcg/0.25mL dose 09/05/2021 completed Not Available [facility] 02/15/2023 05:29:33 SARS-COV-2 (COVID-19) vaccine, UNSPECIFIED 02/27/2021 completed Not Available [facility] 02/15/2023 05:29:34 COVID-19, mRNA, LNP-S, bivalent, PF, 30 mcg/0.3 mL dose 09/19/2022 completed Not Available [facility] 02/16/20 05:29:34 COVID-19, mRNA, LNP-S, bivalent, PF, 30 mcg/0.3 mL dose 03/05/2022 completed Not Available [facility] 02/16/20 05:29:34 pneumococcal polysaccharide PPV23 07/01/2006 completed Not [facility] 2022 05:29:34 pneumococcal polysaccharide PPV23 02/21/2015 completed Not [facility] 2022 05:29:34 pneumococcal polysaccharide PPV23 03/11/2001 completed Not Available [facility] 2022 05:29:34 Hep B, adult 09/28/2016 completed Not Available [facility] 02/15/2023 05:29:34 influenza, unspecified formulation 01/12/2008 completed Not Available [facility] 02/15/2023 05:29:34 influenza, unspecified formulation 02/01/2014 completed Not Available [facility] 02/15/2023 05:29:34 influenza, unspecified formulation 02/12/2019 completed Not Available [facility] 02/15/2023 05:29:35 Influenza, high-dose, quadrivalent, PF 01/24/2023 completed Not Available [facility] 04/19/2023 05:31:38 COVID-19, mRNA, LNP-S, PF, mayito-sucrose, 30 mcg/0.3 mL 01/30/2023 completed Not Available [facility] 04/19/2023 05:31:38 Past Encounters Encounter ID Performer Location Encounter Start Date Encounter Closed Date Diagnosis/Indication Diagnosis SNOMED-CT Code [id number] RUPAL BARILLAS MD [address] [address] 09/24/2023 15:53:59 09/24/2023 16:41:26 Always hungry [id number] Altered reuben wel function [id number] History of adenomatous polyp of colon 861804157 [id number] RUPAL BARILLAS MD [address] [address] 10/07/2023 12:38:43 10/07/2023 13:32:27 Actinic keratosis 902333207 Acquired thrombocytopenia 92303442 Nodule of lung 594670317 Chest pain on exertion 41463025 Minimal co gnitive impairment 459496280 New daily persistent headache [id number] Health Concerns Section Related Observation LastModified by Organization Detai ls LastModified Time None Recorded Concern Status LastModified by Organization Details LastModified Time None Recorded Payers Encounter Date Sequence Insurance Name Policy Number Policy Lucas Covered Member ID Lucas Member ID Guarantor Name 10/07/2023 1 [id number]/A [place]ANTAGE - PPO) [id number] Milka Corbett [id number] Milka Turner Corbett Notes Date Note Type Note Provider Name and Address Organization Details Recorded Time 10/07/2023 text/html HPI Notes: Here for discussion of enlarging lung nodule, 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 [...] she tried to treat with clear fingernail macedonian. It has grown in size. It is not painful. She was seen in ED a week ago for several hours of chest pain, negative cardiac eval, but does report exertional chest pain when she goes upstairs that resolves with rest. She denied positive response to nitroglycerin although Dr. Ortega got a different history in that regard. RUPAL BARILLAS MD [address], [place], [address], [facility]. 10/07/2023 16:32:50 OBGyn Episode No OBEpisode recorded.
--- OUTSIDE RECORDS SUMMARY | 2023-12-02 18:33 | XMS_ITS | Encounter Summary ---
Author Organization [facility] Address [facility] [place] [address] Care Team Providers Care Supervisor Film Processing Name Role Phone Salome Mcarthur APRN Primary Care Provider [phone] Reason for Visit * Reason Comments Medication Refill Encounter Details Date Type Department Care Team (Late st Contact Info) Description 04/28/2023 Refill [place] [phone] Molly Cui [facility] [address] Gastroesophageal reflux disease without esophagitis Social History Tobacco Use Types Packs/Day Years [...] 02/06/2024 11:30 AM EDT Appointment [place] [phone] Molly Cui [facility] [address] 02/06/2024 12:15 PM EDT Laboratory Appointment Lab [address] [phone] 02/06/2024 1:30 PM EDT Office Visit [place] [address] Molly Cui APRN [facility] [place] [address] documented as of this encounter Visit Diagnoses Diagnosis Gastroesophageal reflux disease without esophagitis Esophageal reflux documented in this encounter Care Teams Supervisor Film Processing Relationship Specialty Start Date End Date Salome Mcarthur APRN [address] [place] [id number] PCP - General Family Medicine 05/30/15 documented as of this encounter
--- OUTSIDE RECORDS SUMMARY | 2023-12-02 18:33 | XMS_ITS | Clinical Summary ---
Author Organization [facility] Address [facility] [place] [address] Care Team Providers Care Storage Battery Charger Name Role Phone Salome Mcarthur APRN Primary Care Provider [phone] Allergies Active Allergy Reactions Criticality Noted Date Comments Atenolol Other (See Comments) 03/09/2009 Codeine Phosphate Rash,Other (See Comments) Medium Causes anxiety Erythromycin Base Nausea And Vomiting Medium Latex, Natural Rubber Itching 08/21/2011 Meperidine Hcl Other (See Comments) Medium confusion Simvastatin Nausea Only Medium 02/16/2014 Sulfamethoxazole-Trimeth oprim Rash 03/09/2009 Medications Medication Sig Dispensed Refills Start Date End Date Status docusate sodium (COLACE) 100 mg capsule Take by mouth. 02/24/2009 Active lisinopril-hydrochl orothiazide (PRINZIDE;ZESTORETI C) 10-12.5 mg per tablet Take 1 tablet by mouth daily. Active acetaminophen (TYLENOL) 325 mg tablet Take 650 mg by mouth every 4 hours as needed. Active FEXOFENADINE HCL (JESÚS ORAL) Take 100 mg by mouth as needed. Reported on 08/21/2016 Active fish oil-omega-3 fatty acids with vitamin E 1,000 mg Capsule Take 3,000 mg by mouth daily. Active multivitamin (THERAGRAN) tablet Take 1 tablet by mouth daily. Active amitriptyline (ELAVIL) 50 mg tablet Take 25 mg by mouth nightly. Active gabapentin (NEURONTIN) 600 mg Tablet Take 600 mg by mouth 2 times daily. Active metFORMIN (GLUCOPHAGE) 1,000 mg tablet Take 1,000 mg by mouth 2 times daily (with meals). Active triamcinolone (KENALOG) 0.1 % cream Apply 1 Application topically as needed. Active fenofibrate (TRICOR) 145 mg Tablet Reported on 08/21/2016 02/17/2015 Active nystatin (MYCOSTATIN) 100,000 unit/mL Suspension as needed. 0 05/19/2015 Active clonazePAM (KLONOPIN) 0.5 mg Tablet nightly. 02/21/2015 Active diphenhydrAMINE (BENADRYL) 25 mg Capsule Take 25 mg by mouth every 6 hours as needed for Itching. Active fluticasone propionate (FLONASE) 50 mcg/actuation [place], Suspension 1 spray daily. Act keshia pramipexole (MIRAPEX) 0.125 mg Tablet Take by mouth 3 times daily. 07/28/2018 Active Victoza 2-Jl 0.6 mg/0.1 mL (18 mg/3 mL) Pen Injector Inject 1.8 mg as directed. 05/02/2020 Active atorvastatin (Lipitor) 20 mg Tablet Take 20 mg by mouth daily. Active omeprazole (PriLOSEC) [address] capsuleIndications: Gastroesophageal reflux disease without esophagitis TAKE 1 CAPSULE BY MOUTH DAILY 90 capsule 1 04/29/2023 04/28/2024 Active lisinopriL (Zestril) 10 mg tablet Take 1 tablet by mouth once a day for kidney protection 06/06/2009 Active metoprolol succinate XL (Toprol-XL) 25 mg ER 24 hr tablet Take 37.5 mg by mouth Daily @ 0600. Active carvediloL (Coreg) 6.25 mg tabletIndications:P ortal hypertension TAKE 1 TABLET BY MOUTH TWICE DAILY WITH MEALS 180 tablet 1 10/23/2023 Active Hospital, Clinic, or Other Facility Administered Medication Ordered Dose Route Frequency Start Date End Date Status diatrizoate meglumine (HYPAQUE, CYSTOGRAFIN) urethral solution 300 mLIndications:Urge incontinence 300 mL Urth ONCE PRN 07/22/2012 Active Active Problems Problem Noted Date Diagnosed Date Hepatic cirrhosis 05/19/2020 Overview (05/19/2020): Added automatically from request for surgery [id number] NAFLD (nonalcoholic fatty liver disease) 016 Mixed incontinence 07/27/2012 Bladder cancer 07/08/2012 S/P hysterectomy 07/08/2012 Vaginal lesion 07/08/2012 Encounters Date Type Department Care Team Description 11/27/2023 Transcribe Orders eDH Incoming Referrals [phone] Leland Ortega MD JIMENEZ (dyspnea on exertion); Chest pain, unspecified type; Aortic valve stenosis, etiology of cardiac valve disease unspecified 11/24/2023 Notes Only Hematology [place] [phone] Carolina Ortega MD 11/21/2023 Transcribe Orders Hematology and Oncology at [place] [phone] Leland Ortega MD Thrombocytopenia 10/24/2023 11:12 AM EDT - 10/24/2023 11:59 PM EDT Hospital Encounter Nuclear Medicine at [place] [phone] Aysha Johnson MD Discharge Disposition: Home 10/24/2023 11:12 AM EDT - 10/24/2023 11:59 PM EDT Hospital Encounter [place] [address] Aysha Johnson MD Lung nodule Discharge Disposition: Home 10/24/2023 Travel 10/23/2023 Refill Gastroenterology at [place] [phone] Molly Cui APRN Portal hypertension 10/08/2023 Telephone [place] [address] Leyla Daily from Last 3 Months Family History Medical History Relation Comments Bladder Cancer Brother Ovarian Cancer Daughter Uterine Cancer Maternal Grandmother Breast Cancer Neg Hx Colorectal Cancer Neg Hx Pancreatic Cancer Neg Hx Relation Status Comments Brother Daughter Maternal Grandmother Social History Tobacco Use Types Packs/Day Years Used Date Smoking Tobacco: Never Smokeless Tobacco: Never Tobacco Cessation:Counseling Given: Not Answered Alcohol Use Standard Drinks/Week Comments Yes 0 (1 standard drink = 0.6 oz pur e alcohol) once per year Sex and Gender Information Value Date Recorded Sex Assigned at Not on file Gender Identity Not on file Sexual Orientation Not on file Last Filed Vital Signs Vital Sign Reading Time Taken Comments Blood Pressure 129/56 08/08/2023 1:38 PM EDT Pulse 92 08/08/2023 1:38 PM EDT Temperature 36.4 ??C (97.5 ??F) 01/23/2023 1 2:10 PM EDT Respiratory Rate 19 01/23/2023 1:00 PM EDT Oxygen Saturation 96% 01/23/2023 1:05 PM EDT Inhaled Oxygen Concentration - - Weight 62.1 kg (136 lb 14.4 oz) 08/08/2023 1:38 PM EDT Height 154.9 cm (5' 1) 08/08/2023 1:38 PM EDT Body Mass Index 25.87 08/08/2023 1:38 PM EDT Plan of Treatment Upcoming Encounters Date Type Department Care Team (Late st Contact Info) Description 02/06/2024 11:30 AM EDT Appointment [place] [phone] Molly Cui PAINTER BOTTOM [facility] [place] [address] 02/06/2024 12:15 PM EDT Laboratory Appointment Lab [address] [place] [phone] 02/06/2024 1:30 PM EDT Office Visit [place] [phone] Molly Cui [facility] [place] [address] Health Maintenance Due Date Last Done Comments CT Colonography 1940 Colonoscopy 1940 Colorectal Cancer Screening 1940 FIT DNA 1940 FIT 1940 Sigmoidoscopy (10 year) with FIT yearly 1940 Sigmoidoscopy 1940 Pneumoccocal Vaccine: 65+ (1 of 2 - PCV) 06/23/1947 Tdap adult 1960 Tetanus vaccine 1960 Zoster vaccine (1 of 2) 06/23/1991 Advance Directive 1996 Bone Density Scan 2006 Covid-19 Vaccine (2022-2 4 season) 2023 01/30/2023, 09/19/2022, 03/05/2022, Additional history exists Influenza (Flu) vaccine (1 o f 1 - Influenza standard series) 12/08/2023 PAP Smear Discontinued 07/08/2012 Procedures Procedure Name Priority Date/Time Associated Diagnosis Comments ORDS - PROVIDER CARE SCAN 11/25/2023 12:00 AM EDT NM PET CT SKULL BASE TO MID-THIGH ([facility]) Routine 10/24/2023 12:50 PM EDT Lung nodule POCT GLUCOSE Routine 10/24/2023 11:33 AM EDT DIAGNOSTIC RADIOLOGY SCAN 10/24/2023 12:00 AM EDT ORDS - PROVIDER CARE SCAN 10/08/2023 12:[address] SCAN (SCAN) 10/01/2023 12:00 AM EDT ECG SCAN 09/30/2023 12:00 AM EDT PROTOZOOLOGY TEACHER CYTOLOGY FINAL REPORT Routine 07/08/2012 8:27 PM EDT from Last 3 Months or Most Recently Relevant to Health Maintenance Results * Scan Doc: Ords - Provider Care (11/25/2023 12:00 AM EDT) Only the most recent of2 resultswithin the time period is included. Narrative 11/25/2023 12:00 AM EDT Ordered by an unspecified provider. Scanning Provider MEDIA MGR SCAN EXT O RDR/RSLT * NM PET CT Skull Base to Mid-thigh (10/24/2023 12:50 PM EDT) Pathologist [employer] WORKSTATION ID [id number] DH RAD Anatomical Region Laterality Modality Positron Emissio n Tomography (PET) Impressions 10/24/2023 3:59 PM EDT 1. ??The lesion of question in the left lower lobe is essentially nonavid and demonstrates fatty attenuation, likely to represent a benign lipoma or hamartoma. 2. ??A cluster of minimally avid nodules in the right upper lobe is similar to recent prior, new from 2019. Recommend 1 year follow-up with CT as per Fleischner guidelines. 3. ??Patchy faint groundglass opacities in both lungs, likely infectious or inflammatory. 4. ??Cirrhosis and evidence of portal hypertension (splenomegaly). Thank you for letting us participate in the care of this patient. ??If you are a health care provider and have any questions regarding this report, please contact the number below. ??For patients who have questions please contact the health primary care physician that requested your imaging first. ? Electronically signed by: Hernan Winkler [facility] ([phone]), at 10/24/2023 3:59 PM Narrative 10/24/2023 3:59 PM EDT EXAMINATION: NM PET CT STANDARD SKULL BASE TO MID-THIGH CLINICAL HISTORY: lll nodule 2 cm (doubled in size); evaluate for malignancy R91.1, Solitary pulmonary nodule TECHNIQUE: Following IV injection of 72-knydoy-5-deoxyglucose (FDG) a standard uptake of approximately 60 minutes, a noncontrast CT scan followed by a PET scan were acquired from the base of the skull to mid thighs. The noncontrast CT was used for anatomic localization and photon attenuation correction of the PET scan. Blood glucose level: 108 (mg/dL) FDG dose: 11.5 mCi COMPARISON: CT of the chest, abdomen, and pelvis 09/30/2023. CT chest 08/01/2018. FINDINGS: HEAD AND NECK: ORBITS: No abnormal uptake. PARANASAL SINUSES: No abnormal uptake. AERODIGESTIVE TRACT: No abnormal uptake. SALIVARY GLANDS: No abnormal uptake. THYROID: No abnormal uptake. VASCULATURE: No abnormal uptake. Vascular calcifications bilateral carotid bulbs. LYMPH NODES: No abnormal uptake. THORAX: LUNGS: A nonavid oblong density in the medial left lower lobe measuring approximately 1.5 x 1.5 cm transaxial dimension and 2.6 cm craniocaudal dimension with SUV max 0.4, which is below background lung, highly unlikely to represent malignancy. Hounsfield units that measures approximately -20, which could be compatible with fatty tissue. Patchy faint groundglass opacities in bilateral lungs diffusely, may represents infection or inflammation. A cluster of minimally avid nodules in the lateral right upper lobe appears similar to prior, may be infectious or inflammatory. PLEURA: No abnormal uptake. AIRWAYS: No abnormal uptake. MEDIASTINUM: No abnormal uptake. HEART AND VASCULATURE: No abnormal uptake. Mitral annular calcifications. Aortic valvular and coronary calcifications. Moderate vascular calcifications of the aortic arch and great vessels. LYMPH NODES: No abnormal uptake. BREASTS/CHEST WALL: No abnormal uptake. ABDOMEN AND PELVIS: LIVER: No abnormal uptake. Cirrhotic liver. Hepatomegaly. BILIARY SYSTEM: No abnormal uptake. Cholecystectomy. PANCREAS: No abnormal uptake. SPLEEN: No abnormal uptake. Splenomegaly measuring 14.5 cm in AP dimension. ADRENALS: No abnormal uptake. KIDNEYS AND URETERS: No abnormal uptake. URINARY BLADDER: No abnormal uptake. REPRODUCTIVE: No abnormal uptake. GI: Diffuse uptake in the large bowel may be seen in the setting of metformin usage. Mild to moderate colonic diverticulosis. OMENTUM, MESENTERY, PERITONEUM, RETROPERITONEUM: No abnormal uptake. VASCULATURE: No abnormal uptake. Severe vascular calcifications in the aorta and branch vessels. LYMPH NODES: No abnormal uptake. MUSCULOSKELETAL: No abnormal uptake. Degenerative changes of the spine associated with multilevel anterior bridging osteophytes. Procedure Note Hernan Winkler MD - 10/24/2023 EXAMINATION: NM PET CT STANDARD SKULL BASE TO MID-THIGH CLINICAL HISTORY: lll nodule 2 cm (doubled in size); evaluate formalignancy R91.1, Solitary pulmonary nodule TECHNIQUE: Following IV injection of 66-wdmnts-7-deoxyglucose (FDG) astandard uptake of approximately 60 minutes, a noncontrast CT scan followed by aPET scan were acquired from the base of the skull to mid thighs. The noncontrast CTwas used for anatomic localization and photon attenuation correction of thePET scan. Blood glucose level: 108 (mg/dL) FDG dose: 11.5 mCi COMPARISON: CT of the chest, abdomen, and pelvis 09/30/2023. CT chest 08/01/2018. FINDINGS: HEAD AND NECK: ORBITS: No abnormal uptake. PARANASAL SINUSES: No abnormal uptake. AERODIGESTIVE TRACT: No abnormal uptake. SALIVARY GLANDS: No abnormal uptake. THYROID: No abnormal uptake. VASCULATURE: No abnormal uptake. Vascular calcifications bilateralcarotid bulbs. LYMPH NODES: No abnormal uptake. THORAX: LUNGS: A nonavid oblong density in the medial left lower lobe measuring approximately 1.5 x 1.5 cm transaxial dimension and 2.6 cm craniocaudal dimension with SUV max 0.4, which is below background lung, highlyunlikely to represent malignancy. Hounsfield units that measures approximately -20,which could be compatible with fatty tissue. Patchy faint groundglass opacities in bilateral lungs diffusely, mayrepresents infection or inflammation. A cluster of minimally avid nodules in the lateral right upper lobeappears similar to prior, may be infectious or inflammatory. PLEURA: No abnormal uptake. AIRWAYS: No abnormal uptake. MEDIASTINUM: No abnormal uptake. HEART AND VASCULATURE: No abnormal uptake. Mitral annular calcifications.Aortic valvular and coronary calcifications. Moderate vascular calcifications ofthe aortic arch and great vessels. LYMPH NODES: No abnormal uptake. BREASTS/CHEST WALL: No abnormal uptake. ABDOMEN AND PELVIS: LIVER: No abnormal uptake. Cirrhotic liver. Hepatomegaly. BILIARY SYSTEM: No abnormal uptake. Cholecystectomy. PANCREAS: No abnormal uptake. SPLEEN: No abnormal uptake. Splenomegaly measuring 14.5 cm in APdimension. ADRENALS: No abnormal uptake. KIDNEYS AND URETERS: No abnormal uptake. URINARY BLADDER: No abnormal uptake. REPRODUCTIVE: No abnormal uptake. GI: Diffuse uptake in the large bowel may be seen in the setting ofmetformin usage. Mild to moderate colonic diverticulosis. OMENTUM, MESENTERY, PERITONEUM, RETROPERITONEUM: No abnormal uptake. VASCULATURE: No abnormal uptake. Severe vascular calcifications in theaorta and branch vessels. LYMPH NODES: No abnormal uptake. MUSCULOSKELETAL: No abnormal uptake. Degenerative changes of the spine associated withmultilevel anterior bridging osteophytes. IMPRESSION 1. The lesion of question in the left lower lobe is essentially nonavidand demonstrates fatty attenuation, likely to represent a benign lipoma or hamartoma. 2. A cluster of minimally avid nodules in the right upper lobe is similarto recent prior, new from 2019. Recommend 1 year follow-up with CT as per Fleischner guidelines. 3. Patchy faint groundglass opacities in both lungs, likely infectiousor inflammatory. 4. Cirrhosis and evidence of portal hypertension (splenomegaly). Thank you for letting us participate in the care of this patient. If youare a health care provider and have any questions regarding this report,please contact the number below. For patients who have questions please contactthe health primary care physician that requested your imaging first. Electronically signed by: Hernan Winkler [facility] ([phone]),at 10/24/2023 3:59 PM Aysha Johnson MD IMG PET ORDERABLES * POCT Glucose (10/24/2023 11:33 AM EDT) Glucose, POC 108 65 - 199 mg/dL [facility] Comment: Supplemental ranges: <140 mg/dL before meals <180 mg/dL all other times of the day Blood 10/24/2023 11:3 3 AM EDT 10/24/2023 11:33 AM EDT Aysha Johnson MD POINT OF CARE TEST O RDERABLES [facility] [place] [address] * Scan Doc: Diagnostic Radiology (10/24/2023 12:00 AM EDT) Anatomical Region Laterality Modality Other Narrative 10/24/2023 12:00 AM EDT Ordered by an unspecified provider. Scanning Provider MEDIA MGR SCAN EXT O RDR/RSLT * Scan Doc: CT Scan (10/01/2023 12:00 AM EDT) Anatomical Region Laterality Modality Other Narrative 10/01/2023 12:00 AM EDT Ordered by an unspecified provider. Scanning Provider MEDIA MGR SCAN EXT O RDR/RSLT * Scan Doc: ECG (09/30/2023 12:00 AM EDT) Narrative 09/30/2023 12:00 AM EDT Ordered by an unspecified provider. Scanning Provider MEDIA MGR SCAN EXT O RDR/RSLT * Family Day Carer Cytology Final Report (07/08/2012 8:27 PM EDT) Family Day Carer Cytology Final Report ? [facility] ? Provider: ?? MOE WATSON, ??Pt. Name: ?? NICK MENDIETA ?LOULOU ? Acc #: ?[id number] ?Pt. ? Col Date: ?? 07/08/2012 ?/Sex: ?1940,(72 years),Female ? Rec Date: ?? 07/08/2012 ?LOC: ?5L ? CYTOPATHOLOGY: ??PROTOZOOLOGY TEACHER ? ---Adequacy--- ? Specimen submitted is satisfactory. Vaginal Only. ? ---Cytopathologic Diagnosis--- ? NORMAL ? Negative for Intraepithelial Lesion or Malignancy (NILM). ? 07/09/12 ?? Screened by: ??LMY ??SLA ? 07/10/12 ?? Verified by: ??ABDON Munoz(ASCP), Stefany Sosa ? Plate Molder ? ---Clinical Information--- ? HPV Option: ? No HPV Testing ? Preparation: ?Liquid Based Pap ? Specimen Source: ?Vaginal only/LBP/Diagnostic ? LMP: ?Post menopausal, hx bladder cancer, new posterior ? wall bladder lesion ? Hormones?: ?No ? Hysterectomy?: ?Total Hysterectomy ?: ?No ?: ?No ? I.U.D.?: ?No ? Pelvic Radiation: ? No ? Prior PROTOZOOLOGY TEACHER Therapy?: ? No ? Hist Abnl Pap/Biopsy?: ??No ? Hist of HPV Vaccine?: ?? No ? Hist of Smoking?: ? No ? Hist of XI exposure?: ??No ? Clinical Data, Significant Therapy and Clinical Impression: ? Note: ? The Pap test is a screening test for cervical cancer with an inherent ? false-negative rate dependent upon several variables. ??For further ? information please contact the [facility]. ? Reference: ??Gunjan AMBRIZ. ??Credit Resolution Representative of Pap Smear Results. ??In: ? Rosy BS, Compa HH, ed. ??The Pap Smear. ??[place]: ??[place], 2002: ? 71-77. JORY THURMANIUM 07/08/2012 8:27 PM EDT Loulou Watson MD PATHOLOGY/C YTOLOGY ORDERABLES JORY THURMANIUM from Last 3 Months or Most Recently Relevant to Health Maintenance Care Teams Storage Battery Charger Relationship Specialty Start Date End Date Salome Mcarthur, PAINTER BOTTOM [address] [place] [address] PCP - General Family Medicine 05/30/15
--- OUTSIDE RECORDS SUMMARY | 2023-12-02 18:33 | XMS_ITS | Encounter Summary ---
Author Organization [facility] Address [facility] [place] [address] Care Team Providers Care Career Technical Counselor Name Role Phone Salome Mcarthur APRN Primary Care Provider [phone] Encounter Details Date Type Department Care Team (Late st Contact Info) Description 11/24/2023 Notes Only Hematology [place] [address] Dariel Ortega MD [facility] [address] HEMATOLOGY [place] [address] Social History Tobacco Use Types Packs/Day Years Used Date Smoking Tobacco: Never Smokeless Tobacco: Never Alcohol Use Standard Drinks/Week Comments Yes 0 (1 standard drink = 0.6 oz pur e alcohol) once per year Sex and Gender Information Value Date Recorded Sex Assigned at Not on file Gender Identity Not on file Sexual Orientation Not on file documented as of this encounter Progress Notes * Dariel Ortega MD - 11/24/2023 7:45 PM EDTSummary: Hematology E-Consult 1. Restatement of the question: Milka Corbett is a 83 y.o. female with longstanding hx of thrombocytopenia. Known hx of cirrhosis and portal HTN. Latest Reference Range & Units 06/28/15 16:22 02/15/16 13:48 05/11/16 00:00 08/21/16 13:10 02/22/17 09:29 08/22/17 10:25 10/17/17 00:00 02/26/18 10:02 09/10/18 13:46 03/12/19 11:39 10/29/19 15: 10:25 12/06/20 12:34 06/01/21 10:31 11/29/21 11:04 06/06/22 12:46 12/05/22 12:22 08/08/23 12:19 Platelet 145 - 357 x10(3)/mcL 168 143 (L) 141 (E) 162 139 (L) 118 (L) 118 (E) 111 (L) 135 (L) 122 (L) 122 (L) 130 (L) 93 (L) 93 (L) 93 (L) 85 (L) 91 (L) 78 (L) (L): Data is abnormally low (E): External lab result 2. Recommendation(s): No further hematology w/u needed at this time. Pt has a known hx of cirrhosis which is the likely etiology. Platelets are relatively stable since 2020(78-90K range). 3. Rationale and/or evidence for recommendation: See above 4. Contingency plan: n/a DARIEL ORTEGA MD Dept of Hematology This eConsult is focused on the specific clinical question(s) asked by the referring clinician, is based on the clinical data available to me, the consulting physician, at the time of the request, and is furnished without benefit of a comprehensive evaluation or physical examination of the patient by me. The guidance set forth in the eConsult note will need to be interpreted in light of any clinical issues not known to me or any changes in patient status that I may not be aware of at the time of filing this eConsult. If further consultation is necessary, an in-person visit with me or another member of our group is an option. documented in this encounter Plan of Treatment Upcoming Encounters Date Type Department Care Team (Late st Contact Info) Description 02/06/2024 11:30 AM EDT Appointment [place] [address] Molly Cui APRN [facility] [place] [address] 02/06/2024 12:15 PM EDT Laboratory Appointment Lab [address] [place] [phone] 02/06/2024 1:30 PM EDT Office Visit [place] [address] Molly Cui APRN [facility] [place] [address] documented as of this encounter Visit Diagnoses Not on filedocumented in this encounter Care Teams Career Technical Counselor Relationship Specialty Start Date End Date Salome Mcarthur APRN [address] [place] [address] PCP - General Family Medicine 05/30/15 documented as of this encounter
--- OUTSIDE RECORDS SUMMARY | 2023-12-02 18:33 | XMS_ITS | Encounter Summary ---
Author Organization [facility] [place] [address] Care Team Providers Care Director Of Tax Services Name Role Phone Salome Mcarthur APRN Primary Care Provider [phone] Encounter Details Date Type Department Care Team (Late st Contact Info) Description 05/13/2023 Telephone [place] [address] Lisette Nicholson Social History Tobacco Use Types Packs/Day Years Used Date Smoking Tobacco: Never Smokeless Tobacco: Never Alcohol Use Standard Drinks/Week Comments Yes 0 (1 standard drink = 0.6 oz pur e alcohol) once per year Sex and Gender Information Value Date Recorded Sex Assigned at Not on file Gender Identity Not on file Sexual Orientation Not on file documented as of this encounter Miscellaneous Notes * Telephone Encounter - Lisette Nicholson - 05/13/2023 1:22 PM EST Called patient and LVM, Appointment on 06/12/23 with Molly Cui has been cancelled due to a change in providers schedule and needs to be rescheduled to next available (bumped appointment) Patient also has US & labs that need to be R/S documented in this encounter Plan of Treatment Upcoming Encounters Date Type Department Care Team (Late st Contact Info) Description 02/06/2024 11:30 AM EDT Appointment [place] [phone] Molly Cui APRN [facility] [place] [address] 02/06/2024 12:15 PM EDT Laboratory Appointment Lab [address] [place] [phone] 02/06/2024 1:30 PM EDT Office Visit [place] [phone] Molly Cui APRN [facility] [place] [address] documented as of this encounter Visit Diagnoses Not on filedocumented in this encounter Care Teams Director Of Tax Services Relationship Specialty Start Date End Date Salome Mcarthur APRN [address] [place] [address] PCP - General Family Medicine 05/30/15 documented as of this encounter
--- OUTSIDE RECORDS SUMMARY | 2023-12-02 18:33 | XMS_ITS | Encounter Summary ---
Author Organization [facility] [place] [address] Care Team Providers Care Prop Drawer Name Role Phone Salome Mcarthur APRN Primary Care Provider +1 [phone] Reason for Referral * Consultation (Routine) - Authorized Specialty Diagnoses / Procedures Referred By Jose t Referred To Contact Cardiology Diagnoses JIMENEZ (dyspnea on exertion) Chest pain, unspecified type Aortic valve stenosis, etiology of cardiac valve disease unspecified INSTRUCTIONAL COACH Procedures CARDIAC CATHETERIZATION Leland Ortega MD [address] [place] [address] [facility] Cardiology [address] [place] [phone] Referral ID Status Reason Start Date Expiration Date Visits Requested Visits Authorized [id number] Authorized Consult, Test & Treat 11/27/2023 11/26/2024 1 1 Encounter Details Date Type Department Care Team (Late st Contact Info) Description 11/27/2023 Transcribe Orders eDH Incoming Referrals [phone] Leland Ortega MD [address] [place], [place] [id number] JIMENEZ (dyspnea on exertion); Chest pain, unspecified type; Aortic valve stenosis, etiology of cardiac valve disease unspecified Social History Tobacco Use Types Packs/Day Years [...] 02/06/2024 11:30 AM EDT [place] [address] Molly Cui, FISHER CRAB [facility] [place] [address] 02/06/2024 12:15 PM EDT Laboratory Appointment Lab [address] [address] 02/06/2024 1:30 PM EDT Office [place] [address] Molly Cui, [facility] CR[employer] [facility] [place] [address] Scheduled Referrals Name Type Priority Associated Diagnoses Orde r Schedule Referral to Cardiology Outpatient Referral Routine JIMENEZ (dyspnea on exertion) Chest pain, unspecified type Aortic valve stenosis, etiology of cardiac valve disease unspecified Ordered: 11/27/2023 documented as of this encounter Visit Diagnoses Diagnosis JIMENEZ (dyspnea on exertion) Other dyspnea and respiratory abnormality Chest pain, unspecified type Aortic valve stenosis, etiology of cardiac valve disease unspecified documented in this encounter Care Teams Prop Drawer Relationship Specialty Start Date End Date Salome Mcarthur FISH[employer] CRAB [address] [place] [address] PCP - General Family Medicine 05/30/15 documented as of this encounter
--- OUTSIDE RECORDS SUMMARY | 2023-12-02 18:33 | XMS_ITS | Encounter Summary ---
[place] [address] Care Team Providers Care Tour Director Name Role Phone Salome Mcarthur APRN Primary Care Provider [phone] Reason for Referral * Diagnostic Test (Routine) - Closed Specialty Diagnoses / Procedures Referred By Contac t Referred To Contact Radiology Diagnoses Lung nodule Procedures NM PET CT Skull Base to Mid-thigh Aysha Johnson MD [address] [place] [address] [place] [address] Referral ID Status Reason Start Date Expiration Date V isits Requested Visits Authorized [id number] Closed Specialty Service Requested 10/08/2023 04/09/2025 1 1 Reason for Visit * Diagnostic Test (Routine) - Closed Specialty Diagnoses / Procedures Referred By Contac t Referred To Contact Radiology Diagnoses Lung nodule Procedures NM PET CT Skull Base to Mid-thigh Aysha Johnson MD [address] [place] [address] [place] [address] Referral ID Status Reason Start Date Expiration Date V isits Requested Visits Authorized [id number] Closed Specialty Service Requested 10/08/2023 04/09/2025 1 1 Encounter Details Date Type Department Care Team (Latest Contact Info) Description 10/24/2023 11:12 AM EDT - 10/24/2023 11:59 PM EDT Hospital Encounter [place] [phone] Aysha Johnson MD [address] [place] [address] Lung nodule Discharge Disposition: Home Social History Tobacco Use [...] directed. 05/02/2020 fluticasone propionate (FLONASE) 50 mcg/actuation [place], Suspension 1 spray daily. pramipexole (MIRAPEX) 0.125 [...] 02/06/2024 11:30 AM EDT [place] [phone] Molly Cui [facility] [place] [address] 02/06/2024 12:15 PM EDT Laboratory Appointment Lab [address] [place] [address] 02/06/2024 1:30 PM EDT Office [place] [phone] Molly Cui, [facility] [place] [address] documented as of this encounter Procedures Procedure Name Priority Date/Time Associated Diagnosis Comments NM PET CT SKULL BASE TO MID-THIGH ([facility]) Routine 10/24/2023 12:50 PM EDT Lung nodule documented in this encounter Results * NM PET CT Skull Base to Mid-thigh (10/24/2023 12:50 PM EDT) WORKSTATION ID [id number] RAD Anatomical Region Laterality Modality Positron Emissio [...] who have questions please contact the health director of primary care that requested your imaging first. ? Narrative 10/24/2023 3:59 PM EDT EXAMINATION: NM PET CT STANDARD SKULL BASE TO MID-THIGH CLINICAL HISTORY: lll nodule 2 cm (doubled in size); evaluate for malignancy R91.1, Solitary pulmonary nodule TECHNIQUE: Following IV injection of 92-emtlys-5-deoxyglucose (FDG) a standard uptake of approximately 60 [...] pulmonary nodule TECHNIQUE: Following IV injection of 57-ykpfyb-0-deoxyglucose (FDG) astandard uptake of approximately 60 minutes, [...] patients who have questions please contactthe health director of primary care that requested your imaging first. Electronically signed by: Hernan Winkler [facility] ([phone]),at 10/24/2023 3:59 PM Aysha Johnson MD IMG PET ORDERABLES documented in this encounter Visit Diagnoses Diagnosis Lung nodule Solitary pulmonary nodule documented in this encounter Administered Medications Inactive Administered Medications - up to 3 most recent administrations Medication Order MAR Action Action Date Dose Rate Site fludeoxyglucose (F-18) FDG injection 0-20 mCi 0-20 mCi, Intravenous, ONCE PRN, 1 dose, Starting on Melissa 10/24/23 at 1145, Until Melissa 10/24/23 at 1140, Per Protocol, Radiology Contrast, Routine Given 10/24/2023 11:40 AM EDT 11.5 mCi Right Arm documented in this encounter Care Teams Tour Director Relationship Specialty Start Date End Date Salome Mcarthur, [address] [place] [address] PCP - General Family Medicine 05/30/15 documented as of this encounter
--- OUTSIDE RECORDS SUMMARY | 2023-12-02 18:33 | XMS_ITS | Encounter Summary ---
Author Organization [facility] Address [facility] [place] [address] Care Team Providers Care Employee Relations Director Name Role Phone Salome Mcarthur APRN Primary Care Provider [phone] Encounter Details Date Type Department Care Team (Late st Contact Info) Description 10/08/2023 Telephone [place] [address] Leyla Daily Social History Tobacco Use Types Packs/Day Years [...] 02/06/2024 11:30 AM EDT [place] [address] Molly Cui COMBINED RAIL OPERATOR [facility] [place] [address] 02/06/2024 12:15 PM EDT Laboratory Appointment Lab [address] [place] [address] 02/06/2024 1:30 PM EDT Office [place] [address] Molly Cui COMBINED RAIL OPERATOR [facility] [place] [address] documented as of this encounter Visit Diagnoses Not on filedocumented in this encounter Care Teams Employee Relations Director Relationship Specialty Start Date End Date Salome Mcarthur, COMBINED RAIL OPERATOR [address] [place] [address] PCP - General Family Medicine 05/30/15 documented as of this encounter
--- OUTSIDE RECORDS SUMMARY | 2023-12-02 18:33 | XMS_ITS | Encounter Summary ---
Author Organization [facility] Address [facility] [place] [address] Care Team Providers Care Laser Engineer Name Role Phone Salome Mcarthur APRN Primary Care Provider [phone] Encounter Details Date Type Department Care Team (Latest Contact Info) Description 08/08/2023 12:35 PM EDT Laboratory Appointment Lab [address] [place] [phone] Hepatic cirrhosis, unspecified hepatic cirrhosis type, unspecified whether ascites present Social History Tobacco Use Types Packs/Day Years [...] 02/06/2024 11:30 AM EDT [place] [phone] Molly Cui RECREATION CENTER DIRECTOR [facility] [place] [address] 02/06/2024 12:15 PM EDT Laboratory Appointment Lab [address] [place] [address] 02/06/2024 1:30 PM EDT Office [place] [address] Molly Cui APRN [facility] [place] [address] documented as of this encounter Procedures Procedure Name Priority Date/Time Associated Diagnosis Comments HEMOGRAM Routine 08/08/2023 12:19 PM EDT Hepatic cirrhosis, unspecified hepatic cirrhosis type, unspecified whether ascites present DIFFERENTIAL, AUTOMATED Routine 08/08/2023 12:19 PM EDT Hepatic cirrhosis, unspecified hepatic cirrhosis type, unspecified whether ascites present PROTHROMBIN TIME Routine 08/08/2023 12:1 9 PM EDT Hepatic cirrhosis, unspecified hepatic cirrhosis type, unspecified whether ascites present CBC (WITH DIFF) Routine 08/08/2023 12:19 PM EDT Hepatic cirrhosis, unspecified hepatic cirrhosis type, unspecified whether ascites present COMPREHENSIVE METABOLIC PANEL Routine 08/08/2023 12:19 PM EDT Hepatic cirrhosis, unspecified hepatic cirrhosis type, unspecified whether ascites present documented in this encounter Results * Differential, Automated (08/08/2023 12:19 PM EDT) Neutrophil % 63.4 % [facility] Neutrophil Absolute 3.44 1.70 - 6.10 x10(3)/[facility] Lymph % 24.0 % [facility] Lymphocytes Abs 1.3 0.9 - 3.2 x10(3)/[facility] Monocyte % 10.1 % [facility] Monocyte Abs 0.6 0.3 - 0.9 x10(3)/[facility] Eos % 1.5 % [facility] Eosinophils Abs 0.1 0.0 - 0.4 x10(3)/[facility] Basophil % 0.6 % [facility] Baso Absolute 0.0 0.0 - 0.1 x10(3)/[facility] Immature Gran % 0.40 % [facility] Comment: Immature granulocytes(IG's)percentage and absolute count will include metamyelocytes, myelocytes, and promyelocytes. Blood smears from CBCs yielding IG's will be scanned manually for concordance. If this scan disagrees with the automated IG or if promyelocytes are noted, a manual differential will be performed. Immature Gran Absolute 0.02 0.00 - 0.04 x10(3)/[facility] Blood 08/08/2023 12:1 9 PM EDT 08/08/2023 12:41 PM EDT Narrative Resulting Agency Comment Spec In Lab Molly Cui APRN HEMATOLOGY ORDERAB LES [facility] [place] [address] * (ABNORMAL) Hemogram (08/08/2023 12:19 PM EDT) White Blood Cell 5.4 4.0 - 9.5 x10(3)/[facility] Red Blood Cell 4.15 4.00 - 5.21 x10(6)/[facility] Hemoglobin 12.8 11.7 - 15.5 g/dL [facility] Hematocrit 38.5 35.7 - 45.8 % [facility] Mean Cell Volume 92.8 82.6 - 94.4 fL [facility] Mean Cell Hemoglobin 30.8 27.1 - 32.0 pg [facility] Mean Cell Hemoglobin Concentration 33.2 31.7 - 35.0 g/dL [facility] Platelet 78(L) 145 - 357 x10(3)/[facility] RDW Standard Deviation 45.4 37.0 - 46.0 fL [facility] RDW coefficient of variation 13.3 11.5 - 14.1 % [facility] Mean Platelet Volume 12.1 7.6 - 12.9 fL [facility] NRBC% auto 0.0 % [facility] NRBC Absolute 0.000 0.000 - 0.000 x10(3)/mcL [facility] Blood 08/08/2023 12:1 9 PM EDT 08/08/2023 12:41 PM EDT Narrative Resulting Agency Comment Spec In Lab Mollyjuan a Cui LORETO HEMATOLOGY ORDERAB LES [facility] [place] [address] * (ABNORMAL) Comprehensive metabolic panel (non-fasting) (08/08/2023 12:19 PM EDT) Glucose 110 65 - 199 mg/dL [facility] Comment:Diabetes: >=200 mg/d L plus symptoms Blood Urea Nitrogen 19(H) 8 - 18 mg/dL [facility] Creatinine 0.72 0.70 - 1.20 mg/dL [facility] Sodium 144 135 - 145 mmol/L [facility] Potassium 4.1 3.5 - 5.0 mmol/L [facility] Comment: Please note: ??Patients with WBC >100,000 may have falsely elevated Potassium levels. ??For accurate Potassium quantification in these patients send serum separator tube (gold top) for subsequent determinations. ??Contact the Clinical Chemistry Laboratory if there are any questions. Chloride 101 98 - 107 mmol/L [facility] Carbon Dioxide 28 22 - 31 mmol/L [facility] Anion Gap 15 5 - 15 mmol/L [facility] Calcium 10.0 8.5 - 10.5 mg/dL [facility] Protein, Total 7.0 6.1 - 8.0 g/dL [facility] Albumin 4.2 3.2 - 5.2 g/dL [facility] Aspartate Aminotransferase 34(H) 0 - 30 unit/L [facility] Alanine Aminotransferase 33(H) 0 - 30 unit/L [facility] Alkaline Phosphatase 121(H) 35 - 105 unit/L [facility] Bilirubin, Total 0.5 0.2 - 1.3 mg/dL [facility] Est Glomerular Filtration Rate 83 >=60 mL/min/1. 73 m?? [facility] Comment: This patient's estimated GFR was calculated using the 2020 CKD-EPI equation. The estimated GFR can vary from the measured GFR by up to 30% in the absence of rapidly changing kidney function. Assessment of the estimated GFR is not appropriate when creatinine concentrations are rapidly changing. For clinical situations in which a more precise estimate of GFR is necessary, consider alternative methods of GFR estimation such as a 24-hour urine creatinine clearance. Assignment of CKD stage 1-5 for patients with an eGFR near the transition point between stages may be based on clinical assessment of muscle mass and symptoms in addition to eGFR. Blood 08/08/2023 12:1 9 PM EDT 08/08/2023 12:41 PM EDT Narrative Resulting Agency Comment Spec In Lab Molly Cui APRN CHEMISTRY ORDERABL ES Performing Organization Address [facility] Co de Phone Number [facility] [place] [phone] * Prothrombin Time (08/08/2023 12:19 PM EDT) Prothrombin Time 12.2 9.4 - 12.5 sec [facility] International Normalization Ratio 1.1 [facility] Comment: An INR <2.0 indicates adequate procoagulant activity for hemostasis in most patients without underlying bleeding disorders, though the INR may not adequately reflect hemostatic capacity in patients with liver disease and synthetic impairment. The recommended target INR range for therapeutic anticoagulation is 2.0 ? 3.0 for most applications, though lower and higher ranges may be appropriate depending on clinical circumstances. Blood 08/08/2023 12:1 9 PM EDT 08/08/2023 12:41 PM EDT Narrative Resulting Agency Comment Spec In Lab Molly Cui APRN HEMATOLOGY ORDERAB LES [facility] [place] [address] documented in this encounter Visit Diagnoses Diagnosis Hepatic cirrhosis, unspecified hepatic cirrhosis type, unspecified whether ascites present documented in this encounter Care Teams Laser Engineer Relationship Specialty Start Date End Date Salome Mcarthur, RECREATION CENTER DIRECTOR [address] [place] [address] PCP - General Family Medicine 05/30/15 documented as of this encounter
--- OUTSIDE RECORDS SUMMARY | 2023-12-02 18:33 | XMS_ITS | Encounter Summary ---
Author Organization [facility] [place] [address] Care Team Providers Care Departmental Secretary Name Role Phone Salome Mcarthur APRN Primary Care Provider [phone] Reason for Referral * Consultation (Routine) - Closed Specialty Diagnoses / Procedures Referred By Jose t Referred To Contact Hematology and Oncology Diagnoses Thrombocytopenia Leland Ortega MD [address] [place] [address] [facility] Hem Onc [address] [place] [address] Referral ID Status Reason Start Date Expiration Date V isits Requested Visits Authorized [id number] Closed Consult, Test & Treat 11/21/2023 11/20/2024 1 1 Encounter Details Date Type Department Care Team (Late st Contact Info) Description 11/21/2023 Transcribe Orders Hematology [place] [address] Leland Ortega MD [address] [place] [address] Thrombocytopenia Social History Tobacco Use Types Packs/Day Years [...] 02/06/2024 11:30 AM EDT Appointment [place] [address] Molly Cui, [facility] [place] [address] 02/06/2024 12:15 PM EDT Laboratory Appointment Lab [address] [place] [address] 02/06/2024 1:30 PM EDT Office Visit [place] [address] Molly Cui, [facility] [place] [address] Scheduled Referrals Name Type Priority Associated Diagnoses Order Schedule Referral to Hematology and Oncology Outpatient Referral Routine Thrombocytopenia Ordered: 11/21/2023 documented as of this encounter Visit Diagnoses Diagnosis Thrombocytopenia Thrombocytopenia, unspecified documented in this encounter Care Teams Departmental Secretary Relationship Specialty Start Date End Date Salome Mcarthur APRN [address] [place] [address] PCP - General Family Medicine 05/30/15 documented as of this encounter
--- OUTSIDE RECORDS SUMMARY | 2023-12-02 18:33 | XMS_ITS | Encounter Summary ---
Author Organization [facility] Address [facility] [place] [address] Care Team Providers Care Barley Steeper Name Role Phone Salome Mcarthur APRN Primary Care Provider [phone] Encounter Details Date Type Department Care Team (Late st Contact Info) Description 08/08/2023 1:30 PM EDT Office Visit [place] [address] Molly Cui APRN [facility] [place] [address] Hepatic cirrhosis, unspecified hepatic cirrhosis type, unspecified [...] on file documented as of this encounter Last Filed Vital Signs Vital Sign Reading Time Taken Comments Blood Pressure 129/56 08/08/2023 1:38 PM EDT Pulse 92 08/08/2023 1:38 PM EDT Temperature - - Respiratory Rate - - Oxygen Saturation - - Inhaled Oxygen Concentration - - Weight 62.1 kg (136 lb 14.4 oz) 08/08/2023 1:38 PM EDT Height 154.9 cm (5' 1) 08/08/2023 1:38 PM EDT Body Mass Index 25.87 08/08/2023 1:38 PM EDT documented in this encounter Progress Notes * Molly Cui APRN - 08/08/2023 1:30 PM EDT Hepatology Follow Up Note Patient: Milka Corbett Gender: female : 1940 Provider: Molly Cui NP Referring Physician: Salome Mcarthur APRN HISTORY OF PRESENT ILLNESS Milka Corbett is a 83 y.o. year old female With BA Cirrhosis who returns today for follow up. Her mouth has been burning, has a dry mouth, using biotin and salt water. She was told she had someblockage in her glands which has been improving. Has been having a problem when she goes up stairs, she gets pain in her chest, She saw a sheet metal worker supervisor, considered R heart cath and patient declined. Gets pain after climbing stairs, pain went away when she stopped moving. Has had acid reflux previously, taking Omeprazole 2 pills, at same time of day. She had an upper endoscopy in January 2023 which did not show any signs of ongoing reflux. Taking Metoprolol, prescribed by sheet metal worker supervisor this winter. Tomorrow she is seeing her PCP, Aysha Johnson Upon discussing what she would consider right heart cath but wants to make sure she is sedated PAST MEDICAL/SURGICAL HISTORY 1. Cirrhosis due to BA Fibroscan 06/28/15: 28.4 kPa; 6% IQR; 100% success rate, F4 Risk factors: diabetes, hyperlipidemia, HTN, overweight. Strong family hx of BA cirrhosis. Ultrasound 07/22/2015: no lesions EGD 07/14/2015: no varices, gastric ulcers (2). EGD 09/2019: small varices EGD 09/2020: small varices, mild gastritis, repeat in 1 year EGD 01/13/2023 small varices. 2 Diabetes 3. Hypertension 4. Elevated cholesterol MEDICATIONS Outpatient Medications Marked as Taking for the 08/08/23 encounter (Office Visit) with Molly Cui APRN Medication Sig Dispense Refill lisinopriL (Zestril) 10 mg tablet Take 1 tablet by mouth once a day for kidney protection metoprolol succinate XL (Toprol-XL) 25 mg ER 24 hr tablet Take 37.5 mg by mouth Daily @ 0600. omeprazole (PriLOSEC) [address] capsule TAKE 1 CAPSULE BY MOUTH DAILY 90 capsule 1 atorvastatin (Lipitor) 20 mg Tablet Take 20 mg by mouth daily. Victoza 2-Jl 0.6 mg/0.1 mL (18 mg/3 mL) Pen Injector Inject 1.8 mg as directed. pramipexole (MIRAPEX) 0.125 mg Tablet Take by mouth 3 times daily. diphenhydrAMINE (BENADRYL) 25 mg Capsule Take 25 mg by mouth every 6 hours as needed for Itching. fenofibrate (TRICOR) 145 mg Tablet Reported on 08/21/2016 nystatin (MYCOSTATIN) 100,000 unit/mL Suspension as needed. 0 clonazePAM (KLONOPIN) 0.5 mg Tablet nightly. gabapentin (NEURONTIN) 600 mg Tablet Take 600 mg by mouth 2 times daily. metFORMIN (GLUCOPHAGE) 1,000 mg tablet Take 1,000 mg by mouth 2 times daily (with meals). triamcinolone (KENALOG) 0.1 % cream Apply 1 Application topically as needed. acetaminophen (TYLENOL) 325 mg tablet Take 650 [...] (COLACE) 100 mg capsule Take by mouth. Current Facility-Administered Medications for the 08/08/23 encounter (Office Visit) with Molly Cui APRN Medication Dose Route Frequency Provider Last Rate Last Admin diatrizoate meglumine (HYPAQUE, CYSTOGRAFIN) urethral solution 300 mL 300 mL Urethral Once PRN Sandra Beltrán MD ALLERGIES Allergies Allergen Reactions Latex, Natural Rubber Itching Codeine Phosphate Rash and Other (See Comments) Causes anxiety Erythromycin Base Nausea And Vomiting Meperidine Hcl Other (See Comments) confusion Simvastatin Nausea Only Atenolol Other (See Comments) Sulfamethoxazole-Trimethoprim Rash SOCIAL HISTORY Lives with her . Had a small dog who 04/2019. Has 4 grown children and a large extended family. Sister of BA cirrhosis at age 64, mother of liver disease at 69 Does not drink alcohol (other than 1-2x/year). Does not smoke cigarettes No recreational drug use. FAMILY HISTORY Diabetes in grandmother, mother, sisters(2), brother. Hypertension in sister Cirrhosis (likely due to BA) in sister, mother, niece. Her daughter also has a fatty liver. Mother of liver disease. Her sister in summer 2015 of BA cirrhosis (Was followed by Dr. Johnna White). Cancer (bladder cancer in pt), brother with lung cancer and throat cancer. Daughter had ovarian cancer Dad at age 29 of acute hepatitis PHYSICAL EXAM Vitals: 08/08/23 1338 BP: 129/56 BP Location ([facility]): Right arm Patient Position: Sitting BP Cuff Sizes: Adult (25-34 cm) Pulse: 92 Weight: 62.1 kg (136 lb 14.4 oz) Height: 154.9 cm (5' 1) Body mass index is 25.87 kg/m??. Exam: Appears well. No apparent distress. Lab Results Component Value Date WBC 5.4 08/08/2023 HGB 12.8 08/08/2023 HCT 38.5 08/08/2023 MCV 92.8 08/08/2023 PLATELET 78 (L) 08/08/2023 Recent Labs 08/08/23 1219 INR 1.1 Chemistry Component Value Date/Time NA 144 08/08/2023 1219 K 4.1 08/08/2023 1219 CL 101 08/08/2023 1219 CO2 28 08/08/2023 1219 BUN 19 (H) 08/08/2023 1219 CREATININE 0.72 08/08/2023 1219 Component Value Date/Time CALCIUM 10.0 08/08/2023 1219 ALKPHOS 121 (H) 08/08/2023 1219 AST 34 (H) 08/08/2023 1219 ALT 33 (H) 08/08/2023 1219 BILITOT 0.5 08/08/2023 1219 MELD 3.0: 8 at 08/08/2023 12:19 PM MELD-Na: 7 at 08/08/2023 12:19 PM Calculated from: Serum Creatinine: 0.72 mg/dL (Using min of 1 mg/dL) at 08/08/2023 12:19 PM Serum Sodium: 144 mmol/L (Using max of 137 mmol/L) at 08/08/2023 12:19 PM Total Bilirubin: 0.5 mg/dL (Using min of 1 mg/dL) at 08/08/2023 12:19 PM Serum Albumin: 4.2 g/dL (Using max of 3.5 g/dL) at 08/08/2023 12:19 PM INR(ratio): 1.1 at 08/08/2023 12:19 PM Age at listing (hypothetical): 83 years Sex: Female at 08/08/2023 12:19 PM Ultrasound 08/08/2023: IMPRESSION 1. Coarse , nodular and hyperechoic liver parenchyma, consistent with cirrhosis. Hepatomegaly. No focal lesion. 2. Cholecystectomy. Normal common bile duct. 3. No ascites. 4. Splenomegaly. ASSESSMENT/PLAN Milka Corbett is a 83 y.o. 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 1. Cirrhosis. Diagnosed by fibroscan. Well compensated. MELD 7. 2. BA. Her metabolic risks include diabetes, hypertension, elevated cholesterol, overweight. She has been working on her weight and blood sugar and these have both improved. Continue Victoza 3. Portal hypertension. She has small varices which we have been monitoring with repeat upper endoscopy. There is now strong recommendation to start carvedilol as primary prevention to variceal bleedin people who have small varices. Given she is currently taking metoprolol, I would recommend that we switch metoprolol to carvedilol to get the benefit of prevention of variceal bleeding. She will di scuss this with her PCP. I have prescribed carvedilol. 4. HCC surveillance. US today with no new lesions. Can repeat US in 6 months. 5. Hepatic encephalopathy. No symptoms today. 6. Lung nodule. Followed by PCP, we did not discuss today. 7. Preventative health. She should have annual flu vaccine. 8. 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 Continue Omeprazole, can further evaluate at next EGD. Plan: - Start Carvedilol 6.25mg twice a day for primary prevention to varices. When this is started, recommend stopping metoprolol. Advised patient to check in with her primary care provider before making this change and she has an appointment with her tomorrow. -Follow-up with cardiology regarding chest pain. This does not sound like acid reflux as her refluxsymptoms have been well-controlled with omeprazole. -Recommend Hepatitis B vaccination - would like to do with PCP, Aysha Johnson in [place]. -Follow-up in 6 months with labs and ultrasound Molly Cui APRN Section of Gastroenterology [place] [address] Copy: Salome Mcarthur APRN [address] / [place] [address] Time spent reviewing records prior to this encounter: 5 minutes Time spent during encounter with patient including counselin minutes Time spent documenting encounter on date of service: 5 minutes Approximate total time devoted to this single encounter on date of service: 32 minutes documented in this encounter Plan of Treatment Upcoming Encounters Date Type Department Care Team (Late st Contact Info) Description 02/06/2024 11:30 AM EDT Appointment [place] [phone] Molly Cui APRN [facility] [place] [address] 02/06/2024 12:15 PM EDT Laboratory Appointment Lab [address] [id number] 02/06/2024 1:30 PM EDT Office [place] [phone] Molly Cui APRN [facility] [place] [address] Scheduled Orders Name Type Priority Associated Diagnoses Orde r Schedule US Abdomen Limited Hepatology Protocol Imaging Routine Hepatic cirrhosis, unspecified hepatic cirrhosis type, unspecified whether ascites present Expected: 02/08/2024 (Approximate), Expires: 08/07/2024 Comprehensive metabolic panel (non-fasting) Lab Routine Hepatic cirrhosis, unspecified hepatic cirrhosis type, unspecified whether ascites present Expected: 02/08/2024 (Approximate), Expires: 08/07/2024 CBC (with Diff) Lab Routine Hepatic cirrhosis, unspecified hepatic cirrhosis type, unspecified whether ascites present Expected: 02/08/2024 (Approximate), Expires: 08/07/2024 Prothrombin Time Lab Routine Hepatic cirrhosis, unspecified hepatic cirrhosis type, unspecified whether ascites present Expected: 02/08/2024 (Approximate), Expires: 08/07/2024 AFP tumor marker Lab Routine Hepatic cirrhosis, unspecified hepatic cirrhosis type, unspecified whether ascites present Expected: 02/08/2024 (Approximate), Expires: 08/09/2024 documented as of this encounter Visit Diagnoses Diagnosis Hepatic cirrhosis, unspecified hepatic cirrhosis type, unspecified whether ascites present documented in this encounter Care Teams Barley Steeper Relationship Specialty Start Date End Date Salome Mcarthur APRN [address] [place] [address] PCP - General Family Medicine 05/30/15 documented as of this encounter
--- OUTSIDE RECORDS SUMMARY | 2023-12-02 18:34 | XMS_ITS | Encounter Summary ---
Author Organization [facility] Address [facility] [place] [address] Care Team Providers Care Senior Advisory Name Role Phone Salome Mcarthur APRN Primary Care Provider [phone] Encounter Details Date Type Department Care Team (Late st Contact Info) Description 06/06/2022 2:30 PM EST Office [place] [phone] Molly Wallis APRN [facility] [place] [address] Hepatic cirrhosis, unspecified hepatic cirrhosis type, unspecified whether ascites present Social History Tobacco Use Types Packs/Day Years Used Date Smoking Tobacco: Never Smokeless Tobacco: Never Alcohol Use Standard Drinks/Week Comments Never 0 (1 standard drink = 0.6 oz pur e alcohol) once per year Sex and Gender Information Value Date Recorded Sex Assigned at Not on file Gender Identity Not on file Sexual Orientation Not on file documented as of this encounter Last Filed Vital Signs Vital Sign Reading Time Taken Comments Blood Pressure 151/63 06/06/2022 2:06 PM EST Pulse 108 06/06/2022 2:06 PM EST Temperature - - Respiratory Rate - - Oxygen Saturation - - Inhaled Oxygen Concentration - - Weight 63.4 kg (139 lb 11.2 oz) 06/06/2022 2:06 PM EST Height 153.7 cm (5' 0.5) 06/06/2022 2:06 PM EST Body Mass Index 26.83 06/06/2022 2:06 PM EST documented in this encounter Progress Notes * Molly Wallis APRN - 06/06/2022 2:30 PM EST Hepatology Follow Up Note Patient: Milka Mendieta Gender: female : 1940 Provider: Molly Wallis NP Referring Physician: Salome Mcarthur APRN HISTORY OF PRESENT ILLNESS Milka Mendieta is a 81 y.o. year old female With BA Cirrhosis who returns today for follow up. Feeling well. Started taking Victoza, lost about 15 lbs when she started it, has now gained some weight back. She has been taking Pepcid as prescribed by her PCP. She has been getting some acid reflux with foods such as tomatoes. She has taken Omeprazole in the past, would be willing to take again. PAST MEDICAL/SURGICAL HISTORY 1. 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 Fibroscan 06/28/15: 28.4 kPa; 6% IQR; 100% success rate, F4 ?? Risk factors: diabetes, hyperlipidemia, HTN, overweight. Strong family hx of BA cirrhosis. ?? Ultrasound 07/22/2015: no lesions ?? EGD 07/14/2015: no varices, gastric ulcers (2). ?? EGD 09/2019: small varices ?? EGD 09/2020: small varices, mild gastritis, repeat in 1 year 2 Diabetes 3. Hypertension 4. Elevated cholesterol MEDICATIONS Outpatient Medications Marked as Taking for the 06/06/22 encounter (Office Visit) with Molly Wallis APRN Medication Sig Dispense Refill ??? fluconazole (Diflucan) 100 mg Tablet TAKE 2 TABLETS BY MOUTH ON DAY 1 THEN TAKE 1 TABLET BY MOUTH ONCE DAILY SAME TIME EACH DAY FOR NEXT 14 DAYS ??? atorvastatin (Lipitor) 20 mg Tablet Take 20 mg by mouth daily. ??? Victoza 2-Jl 0.6 mg/0.1 mL (18 mg/3 mL) Pen Injector ??? fluticasone propionate (FLONASE) 50 mcg/actuation [place], Suspension 1 spray daily. ??? pramipexole (MIRAPEX) 0.125 mg Tablet ??? diphenhydrAMINE (BENADRYL) 25 mg Capsule Take 25 mg by mouth every 6 hours as needed for Itching. ??? fenofibrate (TRICOR) 145 mg Tablet Reported on 08/21/2016 ??? nystatin (MYCOSTATIN) 100,000 unit/mL Suspension as needed. 0 ??? clonazePAM (KLONOPIN) 0.5 mg Tablet nightly. ??? gabapentin (NEURONTIN) 600 mg Tablet Take 600 mg by mouth 2 times daily. ??? metFORMIN (GLUCOPHAGE) 1,000 mg tablet Take 1,000 mg by mouth 2 times daily (with meals). ??? red yeast rice 600 mg Tab Take 600 mg by mouth 2 times daily. ??? triamcinolone (KENALOG) 0.1 % cream Apply 1 Application topically as needed. ??? lisinopril-hydrochlorothiazide (PRINZIDE;ZESTORETIC) 10-12.5 mg per tablet Take 1 tablet by mouth daily. ??? acetaminophen (TYLENOL) 325 mg tablet Take 650 mg by mouth every 4 hours as needed. ??? FEXOFENADINE HCL (JESÚS ORAL) Take 100 mg by mouth as needed. Reported on 08/21/2016 ??? fish oil-omega-3 fatty acids with vitamin E 1,000 mg Capsule Take 3,000 mg by mouth daily. ??? multivitamin (THERAGRAN) tablet Take 1 tablet by mouth daily. ??? amitriptyline (ELAVIL) 50 mg tablet Take 25 mg by mouth nightly. Current Facility-Administered Medications for the 06/06/22 encounter (Office Visit) with Molly Wallis APRN Medication Dose Route Frequency Provider Last Rate Last Admin ??? diatrizoate meglumine (HYPAQUE, CYSTOGRAFIN) urethral solution 300 mL 300 mL Urethral Once PRN Sandra Beltrán MD ALLERGIES Allergies Allergen Reactions ??? Codeine Phosphate Rash and Other (See Comments) Causes anxiety ??? Erythromycin Base Nausea And Vomiting ??? Meperidine Hcl Other (See Comments) confusion SOCIAL HISTORY Lives with her . Had [...] 29 of acute hepatitis PHYSICAL EXAM Vitals: 06/06/22 1406 BP: 151/63 BP Location (NB): Left arm Patient Position: Sitting BP Cuff Sizes: Small Adult (20-26 cm) Pulse: (!) 108 Weight: 63.4 kg (139 lb 11.2 oz) Height: 153.7 cm (5' 0.5) Body mass index is 26.83 kg/m??. Exam: Appears well. No apparent distress. Lab Results Component Value Date WBC 5.8 06/06/2022 HGB 12.7 06/06/2022 HCT 38.7 06/06/2022 MCV 91.7 06/06/2022 PLATELET 85 (L) 06/06/2022 Recent Labs 06/06/22 1246 INR 1.1 Chemistry Component Value Date/Time NA 141 06/06/2022 1246 K 4.2 06/06/2022 1246 CL 104 06/06/2022 1246 CO2 27 06/06/2022 1246 BUN 15 06/06/2022 1246 CREATININE 0.66 (L) 06/06/2022 1246 Component Value Date/Time CALCIUM 10.4 06/06/2022 1246 ALKPHOS 98 06/06/2022 1246 AST 33 (H) 06/06/2022 1246 ALT 34 (H) 06/06/2022 1246 BILITOT 0.6 06/06/2022 1246 MELD-Na score: 7 at 06/06/2022 12:46 PM MELD score: 7 at 06/06/2022 12:46 PM Calculated from: Serum Creatinine: 0.66 mg/dL (Using min of 1 mg/dL) at 06/06/2022 12:46 PM Serum Sodium: 141 mmol/L (Using max of 137 mmol/L) at 06/06/2022 12:46 PM Total Bilirubin: 0.6 mg/dL (Using min of 1 mg/dL) at 06/06/2022 12:46 PM INR(ratio): 1.1 at 06/06/2022 12:46 PM Age: 81 years EGD 01/27/2022: Impression: ?- Small esophageal varices. 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 Recommendation: ?- Patient has a contact number ?available for emergencies. The ?signs and symptoms of potential ?delayed complications were ?discussed with the patient. Return ?to normal activities tomorrow. ?Written discharge instructions were ?provided to the patient. ?- Follow up in Hepatology Clinic. 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 Ultrasound 06/06/2022: IMPRESSION 1. Hepatomegaly with diffusely coarsened parenchyma and capsular nodularity, without interval change. 5 mm echogenic focus within the caudate is again seen, without interval change. No new or concerning hepatic lesion. 2. Gallbladder surgically absent. No intra or extrahepatic biliary ductal dilation, 8 mm common duct is within normal limits for age and postcholecystectomy. 3. There is splenomegaly, long axis 15.1 cm. Similar to prior. 4. No ascites. ?? ASSESSMENT/PLAN Milka Mendieta is a 81 y.o. 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 1. Cirrhosis. Diagnosed by fibroscan. Well compensated. MELD 7. 2. BA. Her metabolic risks include diabetes, hypertension, elevated cholesterol, overweight. She has been working on her weight and blood sugar and these have both improved. Continue Victoza 3. Portal hypertension. EGD done 01/2022 with small varices, stable from year prior. Plan to repeatEGD in 1 year. 4. HCC surveillance. US today with no new lesions. Can repeat US in 6 months. 5. Hepatic encephalopathy. We did not discuss today. In the past she has had some difficult with word finding, but not clearly HE. 6. Lung nodule. Followed by PCP, we did not discuss today. 7. Preventative health. She should have annual flu vaccine. 8. 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 Prescription sent to pharmacy. Plan: -Omeprazole 40mg once daily. - Follow up in 6 months with labs, US and visit - EGD 01/2023 for varices surveillance Molly Wallis APRN Section of Gastroenterology [place] [address] Copy: Salome Mcarthur APRN [address] / [place] [address] Time spent reviewing records prior to this [...] 02/06/2024 11:30 AM EDT [place] [phone] Molly Wallis APRN [facility] [place] [address] 02/06/2024 12:15 PM EDT Laboratory Appointment Lab [address] [phone] 02/06/2024 1:30 PM EDT Office [place] [phone] Molly Wallis APRN [facility] [address] documented as of this encounter Results * (ABNORMAL) Prothrombin Time (12/05/2022 12:22 PM EDT) Prothrombin Time 13.2(H) 9.4 - 12.5 sec [facility] International Normalization Ratio 1.2 [facility] Comment: An INR <2.0 indicates adequate procoagulant activity for hemostasis in most patients without underlying bleeding disorders, though the INR may not adequately reflect hemostatic capacity in patients with liver disease and synthetic impairment. The recommended target INR range for therapeutic anticoagulation is 2.0 ? 3.0 for most applications, though lower and higher ranges may be appropriate depending on clinical circumstances. Blood 12/05/2022 12:2 2 PM EDT 12/05/2022 12:47 PM EDT Narrative Resulting Agency Comment Spec In Lab Molly Wallis APRN HEMATOLOGY ORDERAB LES [facility] [place] [address] * (ABNORMAL) Comprehensive metabolic panel (non-fasting) (12/05/2022 12:22 PM EDT) Glucose 114 65 - 199 mg/dL [facility] Comment:Diabetes: >=200 mg/d L plus symptoms Blood Urea Nitrogen 17 8 - 18 mg/dL [facility] Creatinine 0.71 0.70 - 1.20 mg/dL [facility] Sodium 142 135 - 145 mmol/L [facility] Potassium 4.1 3.5 - 5.0 mmol/L [facility] Comment: Please note: ??Patients with WBC >100,000 may have falsely elevated Potassium levels. ??For accurate Potassium quantification in these patients send serum separator tube (gold top) for subsequent determinations. ??Contact the Clinical Chemistry Laboratory if there are any questions. Chloride 105 98 - 107 mmol/L [facility] Carbon Dioxide 28 22 - 31 mmol/L [facility] Anion Gap 9 5 - 15 mmol/L [facility] Calcium 9.7 8.5 - 10.5 mg/dL [facility] Protein, Total 7.0 6.1 - 8.0 g/dL [facility] Albumin 4.2 3.2 - 5.2 g/dL [facility] Aspartate Aminotransferase 33(H) 0 - 30 unit/L [facility] Alanine Aminotransferase 32(H) 0 - 30 unit/L [facility] Alkaline Phosphatase 136(H) 35 - 105 unit/L [facility] Bilirubin, Total 0.6 0.2 - 1.3 mg/dL [facility] Est Glomerular Filtration Rate 85 >=60 mL/min/1. 73 m?? [facility] Comment: This patient's estimated GFR was [...] and symptoms in addition to eGFR. Blood 12/05/2022 12:2 2 PM EDT 12/05/2022 12:47 PM EDT Narrative Resulting Agency Comment Spec In Lab Molly Wallis APRN CHEMISTRY ORDERABL ES [facility] [place] [address] * US Abdomen Limited Hepatology Protocol (12/05/2022 11:40 AM EDT) Anatomical Region Laterality Modality Abdomen Ultrasound 12/05/2022 11:3 6 AM EDT Impressions 12/05/2022 11:57 AM EDT 1. Coarsened parenchyma consistent with known cirrhosis. 2. Small lesions, one echogenic at 4 mm and another densely calcified 8 mm are unchanged over many studies, dating back to at least 2019. No new or concerning focal lesion. 3. Gallbladder surgically absent. There is no intra or extrahepatic biliary ductal dilation. 4. Moderate splenomegaly, volume 660 mL. 5. No ascites. Electronically signed by: Avila Keith MD, [facility] ([phone]), at 12/05/2022 11:48 AM Thank you for letting us participate in the care of this patient. If you are a health care provider and have any questions regarding this report, please contact the number above. For patients who have questions, please contact the health customer care specialist that requested your imaging first. ?Avila Keith, Staff Physician Electronically Signed Final Report ?? 12/05/2022 11:56 am Narrative 12/05/2022 11:57 AM EDT Abdominal ? (Signed Final 12/05/2022 11:56 am) PATIENT INFO: ID #: ? [id number] ?: ??[birth year] (82 yrs)(F) Name: ? MILKA MENDIETA ?Visit Date: 12/05/2022 11:36 am PERFORMED BY: Attending: ?Avila Keith MD Performed By: ? Sanjeev Marshall RDMS Referred By: ?MOLLY WALLIS Secondary Phy.: ?? MOLLY WALLIS HISTORICAL SITE GUIDE Location: ? [facility] Protocol - Abdominal ?[id number] Limited Survey Single Organ or Quadrant - [id number] INDICATIONS: cirrhosis, screen for hcc ------ LIVER: ------ Right Lobe Length: ?? 21.8 ?? cm Echogenicity/Echotexture: ?? Coarse parenchyma Portal Veins: ?Hepatopetal -------- Lesions: -------- # ?Date ?Location ?Description ?L ?AP ?TV (cm) ?12/05/22 ? Left lobe, ?Echogenic ? 0.4 ?posterior ?12/05/22 ? Left lobe ? Calcific ?0.8 ?adj to ?caudate ?06/06/22 ?Left lobe, ?Echogenic ? 0.5 ?0.5 ? 0.5 ?border of ? lesion ?caudate ?lobe # ?Date ?Location ?Description ?L ?AP ?TV (cm) ?8 ? Left Lobe ? Hyperechoic, ?0.5 ?0.4 ? 0.0 ?[facility] ?2/ ? Left Lobe ? Hyperechoic, ?0.5 ?0.5 ? 0.5 ?[facility] ?09/26/20 ? Lft lobe ?Echogenic ? 0.6 ?0.4 ? 0.7 GALLBLADDER: Cholelithiasis: ?Surgically absent Focal Tenderness: ?Negative sonographic Marino's sign BILIARY TRACT: Intrahepatic Ducts: ?? Normal Extrahepatic Ducts: ?? Normal Common Duct Size: ? 9.0 ? mm ------- SPLEEN: ------- Size (cm) ?L: ??16.2 ?AP: ??10.5 ?TV: ??7.4 Vol (ml): ?659.1 Comment: ?Splenomegaly- moderate FLUID COLLECTIONS: Ascites not present on 4 quadrant evaluation. Procedure Note Avila Keith MD - 12/05/2022 Abdominal (Signed Final 12/05/2022 11:56 am) PATIENT INFO: ID #: [id number] : [birth year] (82 yrs)(F) Name: MILKA MENDIETA Visit Date: 12/05/2022 11:36 am PERFORMED BY: Attending: Avila Keith MD Performed By: Sanjeev Marshall RDMS Referred By: MOLLY WALLIS Secondary Phy.: MOLLY WALLIS APRN Location: [facility] SERVICE(S) PROVIDED: [facility] - Hepatology Protocol - Abdominal 28594 Limited Survey Single Organ or Quadrant - [id number] INDICATIONS: cirrhosis, screen for hcc ------ LIVER: ------ Right Lobe Length: 21.8 cm Echogenicity/Echotexture: Coarse parenchyma Portal Veins: Hepatopetal -------- Lesions: -------- # Date Location Description L AP TV (cm) 12/05/22 Left lobe, Echogenic 0.4 posterior 12/05/22 Left lobe Calcific 0.8 adj to caudate 06/06/22 Left lobe, Echogenic 0.5 0.5 0.5 border of lesion caudate lobe # Date Location Description L AP TV (cm) 11/29/21 Left Lobe Hyperechoic, 0.5 0.4 0.0 [facility] 06/01/21 Left Lobe Hyperechoic, 0.5 0.5 0.5 [facility] 09/26/20 Lft lobe Echogenic 0.6 0.4 0.7 GALLBLADDER: Cholelithiasis: Surgically absent Focal Tenderness: Negative sonographic Marino's sign BILIARY TRACT: Intrahepatic Ducts: Normal Extrahepatic Ducts: Normal Common Duct Size: 9.0 mm ------- SPLEEN: ------- Size (cm) L: 16.2 AP: 10.5 TV: 7.4 Vol (ml): 659.1 Comment: Splenomegaly- moderate FLUID COLLECTIONS: Ascites not present on 4 quadrant evaluation. IMPRESSION 1. Coarsened parenchyma consistent with known cirrhosis. 2. Small lesions, one echogenic at 4 mm and another densely calcified 8 mm are unchanged over many studies, dating back to at least 2019. No new or concerning focal lesion. 3. Gallbladder surgically absent. There is no intra or extrahepatic biliary ductal dilation. 4. Moderate splenomegaly, volume 660 mL. 5. No ascites. Electronically signed by: Avila Keith MD, [facility] ([phone]), at 12/05/2022 11:48 AM Thank you for letting us participate in the care of this patient. If you are a health care provider and have any questions regarding this report, please contact the number above. For patients who have questions, please contact the health customer care specialist that requested your imaging first. Avila Keith, Staff Physician Electronically Signed Final Report 12/05/2022 11:56 am Molly Wallis APRN IMG US GEN ORDERAB LES documented in this encounter Visit Diagnoses Diagnosis Hepatic cirrhosis, unspecified hepatic cirrhosis type, unspecified whether ascites present Hepatic cirrhosis, unspecified hepatic cirrhosis type, unspecified whether ascites present documented in this encounter Care Teams Senior Advisory Relationship Specialty Start Date End Date Salome Mcarthur APRN [address] [place] [address] PCP - General Family Medicine 05/30/15 documented as of this encounter
--- OUTSIDE RECORDS SUMMARY | 2023-12-02 18:34 | XMS_ITS | Encounter Summary ---
Author Organization [facility] [place] [address] Care Team Providers Care Crystallography Teacher Name Role Phone Salome Mcarthur APRN Primary Care Provider [phone] Encounter Details Date Type Department Care Team (Latest Contact Info) Description 06/06/2022 Travel Social History Tobacco Use Types Packs/Day [...] 02/06/2024 11:30 AM EDT [place] [phone] Molly Cui MOTORCOACH DRIVER [facility] [place] [address] 02/06/2024 12:15 PM EDT Laboratory Appointment Lab [address] [place] [phone] 02/06/2024 1:30 PM EDT Office [place] [phone] Molly Cui [employer]CO[employer] DRIVER [facility] [place] [address] documented as of this encounter Visit Diagnoses Not on filedocumented in this encounter Care Teams Crystallography Teacher Relationship Specialty Start Date End Date Salome Mcarthur APRN [address] [place] [address] PCP - General Family Medicine 05/30/15 documented as of this encounter
--- OUTSIDE RECORDS SUMMARY | 2023-12-02 18:34 | XMS_ITS | Encounter Summary ---
Author Organization Formerly [facility] Address [facility] [place] [address] Care Team Providers Care Slab Puller Name Role Phone Salome Mcarthur APRN Primary Care Provider [phone] Encounter Details Date Type Department Care Team (Latest Contact Info) Description 12/06/2020 12:45 PM EDT Laboratory Appointment Lab [address] [place] [phone] Hepatic cirrhosis, unspecified hepatic cirrhosis type, unspecified [...] 02/06/2024 11:30 AM [place] [phone] Molly Cui INCIDENT ANALYST [facility] [place] [address] 02/06/2024 12:15 PM EDT Laboratory Appointment Lab [address] [place] [phone] 02/06/2024 1:30 PM EDT Office [place] [address] Molly Cui APRN [facility] [place] [address] documented as of this encounter Procedures Procedure Name Priority Date/Time Associated Diagnosis Comments HEMOGRAM Routine 12/06/2020 12:34 PM EDT Hepatic cirrhosis, unspecified hepatic cirrhosis type, unspecified whether ascites present DIFFERENTIAL, AUTOMATED Routine 12/06/2020 12:34 PM EDT Hepatic cirrhosis, unspecified hepatic cirrhosis type, unspecified whether ascites present HC PROTHROMBIN TIME Routine 12/06/2020 1 2:34 PM EDT Hepatic cirrhosis, unspecified hepatic cirrhosis type, unspecified whether ascites present HC CBC,PLT & AUTO DIFF Routine 12:34 PM EDT Hepatic cirrhosis, unspecified hepatic cirrhosis type, unspecified whether ascites present COMPREHENSIVE METABOLIC PANEL Routine 12/06/2020 12:34 PM EDT Hepatic cirrhosis, unspecified hepatic cirrhosis type, unspecified whether ascites present documented in this encounter Results * Differential, Automated (12/06/2020 12:34 PM EDT) Neutrophil % 50.1 % [facility] Neutrophil Absolute 2.66 1.70 - 6.10 x10(3)/[facility] Lymph % 36.7 % [facility] Lymphocytes Abs 2.0 0.9 - 3.2 x10(3)/[facility] Monocyte % 9.6 % [facility] Monocyte Abs 0.5 0.3 - 0.9 x10(3)/[facility] Eos % 2.6 % [facility] Eosinophils Abs 0.1 0.0 - 0.4 x10(3)/[facility] Basophil % 0.6 % [facility] Baso Absolute 0.0 0.0 - 0.1 x10(3)/[facility] Immature Gran % 0.40 % [facility] Comment: Immature granulocytes(IG's)percentage and absolute count will include metamyelocytes, myelocytes, and promyelocytes. Blood smears from CBCs yielding IG's will be scanned manually for concordance. If this scan disagrees with the automated IG or if promyelocytes are noted, a manual differential will be performed. Immature Gran Absolute 0.02 0.00 - 0.04 x10(3)/[facility] Blood 12/06/2020 12:3 4 PM EDT 12/06/2020 12:44 PM EDT Narrative Resulting Agency Comment Spec In Lab Molly Cui APRN HEMATOLOGY ORDERAB LES [facility] [place] [address] * (ABNORMAL) Hemogram (12/06/2020 12:34 PM EDT) White Blood Cell 5.3 4.0 - 9.5 x10(3)/mc L [facility] Red Blood Cell 3.98(L) 4.00 - 5.21 x10(6)/mc L [facility] Hemoglobin 12.3 11.7 - 15.5 gm/dL [facility] Hematocrit 37.0 35.7 - 45.8 % [facility] Mean Cell Volume 93.0 82.6 - 94.4 fL [facility] Mean Cell Hemoglobin 30.9 27.1 - 32.0 pg [facility] Mean Cell Hemoglobin Concentration 33.2 31.7 - 35.0 gm/dL [facility] Platelet 93(L) 145 - 357 x10(3)/mc L [facility] RDW Standard Deviation 45.1 37.0 - 46.0 fL [facility] RDW coefficient of variation 13.2 11.5 - 14.1 % [facility] Mean Platelet Volume 11.4 7.6 - 12.9 fL [facility] NRBC% auto 0.0 % [facility] NRBC Absolute 0.000 0.000 - 0.000 x10(3)/mc L [facility] Blood 12/06/2020 12:3 4 PM EDT 12/06/2020 12:44 PM EDT Narrative Resulting Agency Comment Spec In Lab Molly uCi APRN HEMATOLOGY ORDERAB LES [facility] [place] [address] * (ABNORMAL) Comprehensive metabolic panel (non-fasting) (12/06/2020 12:34 PM EDT) Glucose 90 65 - 199 mg/dL [facility] Comment:Diabetes: >=200 mg/d L plus symptoms Blood Urea Nitrogen 23(H) 8 - 18 mg/dL [facility] Creatinine 0.78 0.70 - 1.20 mg/dL [facility] Sodium 141 135 - 145 mmol/L [facility] Potassium 4.4 3.5 - 5.0 mmol/L [facility] Comment: Please note: ??Patients with WBC >100,000 may have falsely elevated Potassium levels. ??For accurate Potassium quantification in these patients send serum separator tube (gold top) for subsequent determinations. ??Contact the Clinical Chemistry Laboratory if there are any questions. Chloride 103 98 - 107 mmol/L [facility] Carbon Dioxide 26 22 - 31 mmol/L [facility] Anion Gap 12 5 - 15 mmol/L [facility] Calcium 10.2 8.5 - 10.5 mg/dL [facility] Protein, Total 6.9 6.1 - 8.0 gm/dL [facility] Albumin 4.2 3.2 - 5.2 gm/dL [facility] Aspartate Aminotransferase 35(H) 0 - 30 unit/L [facility] Alanine Aminotransferase 36(H) 0 - 30 unit/L [facility] Alkaline Phosphatase 82 35 - 105 unit/L [facility] Bilirubin, Total 0.7 0.2 - 1.3 mg/dL [facility] Est Glomerular Filtration Rate 72 >=60 mL/min/1. 73 m?? [facility] Comment: This patient? s estimated glomerular filtration rate (eGFR) is between 72 mL/min/1.73 m2 (patients with less muscle mass) and 84 mL/min/1.73 m2 (patients with more muscle mass) as determined by the CKD-EPI equation. Assessment of eGFR is not appropriate when creatinine concentrations are rapidly changing. For clinical decisions where creatinine clearance will affect therapy, a 24-hour urine creatinine clearance may be advised. Assignment of CKD stage 1 - 5 for patients with an eGFR near the transition point between stages may be based on clinical assessment of muscle mass and symptoms in addition to eGFR. Blood 12/06/2020 12:3 4 PM EDT 12/06/2020 12:44 PM EDT Narrative Resulting Agency Comment Spec In Lab Molly Cui APRN CHEMISTRY ORDERABL ES [facility] [place] [address] * Prothrombin Time (12/06/2020 12:34 PM EDT) Prothrombin Time 11.9 9.4 - 12.5 sec [facility] International Normalization Ratio 1.0 [facility] Comment: An INR <2.0 indicates adequate procoagulant activity for hemostasis in most patients without underlying bleeding disorders, though the INR may not adequately reflect hemostatic capacity in patients with liver disease and synthetic impairment. The recommended target INR range for therapeutic anticoagulation is 2.0 ? 3.0 for most applications, though lower and higher ranges may be appropriate depending on clinical circumstances. Blood 12/06/2020 12:3 4 PM EDT 12/06/2020 12:44 PM EDT Narrative Resulting Agency Comment Spec In Lab Molly A Basilia INCIDENT ANALYST [place] [address] documented in this encounter Visit Diagnoses Diagnosis Hepatic cirrhosis, unspecified hepatic cirrhosis type, unspecified whether ascites present documented in this encounter Care Teams Slab Puller Relationship Specialty Start Date End Date Salmoe Mcarthur APRN [address] [place] [address] PCP - General Family Medicine 05/30/15 documented as of this encounter
--- OUTSIDE RECORDS SUMMARY | 2023-12-02 18:34 | XMS_ITS | Encounter Summary ---
Author Organization [facility] [place] [address] Care Team Providers Care Pencil Maker Name Role Phone Salome Mcarthur APRN Primary Care Provider [phone] Encounter Details Date Type Department Care Team (Latest Contact Info) Description 12/05/2022 Travel Social History Tobacco Use Types Packs/Day [...] 02/06/2024 11:30 AM EDT [place] [phone] Molly Cui PROPERTY ASSISTANT [facility] [place] [address] 02/06/2024 12:15 PM EDT Laboratory Appointment Lab [address] [place] [phone] 02/06/2024 1:30 PM EDT Office [place] [phone] Molly Cui PROPERTY ASSISTANT [facility] [address] documented as of this encounter Visit Diagnoses Not on filedocumented in this encounter Care Teams Pencil Maker Relationship Specialty Start Date End Date Salome Mcarthur APRN [address] [place] [address] PCP - General Family Medicine 05/30/15 documented as of this encounter
--- OUTSIDE RECORDS SUMMARY | 2023-12-02 18:34 | XMS_ITS | Encounter Summary ---
Author Organization [facility] Address [facility] [place] [address] Care Team Providers Care Bus Repair Supervisor Name Role Phone Salome Mcarthur APRN Primary Care Provider [phone] Encounter Details Date Type Department Care Team (Latest Contact Info) Description 09/12/2021 Transcribe [place] [address] Salome Mcarthur APRN [address] [place] [id number] Type II diabetes mellitus with neurological manifestations; Microalbuminuria; Florid cirrhosis; Encephalopathy, unspecified Social History Tobacco Use Types Packs/Day [...] 02/06/2024 11:30 AM EDT Appointment [place] [address] Molly Cui APRN [facility] [place] [address] 02/06/2024 12:15 PM EDT Laboratory Appointment Lab [address] [place] [address] 02/06/2024 1:30 PM EDT Office Visit [place] [address] Molly Cui APRN [facility] [place] [address] documented as of this encounter Visit Diagnoses Diagnosis Type II diabetes mellitus with neurological manifestations Type II or unspecified type diabetes mellitus with neurological manifestations, not stated as uncontrolled Microalbuminuria Proteinuria Florid cirrhosis Alcoholic cirrhosis of liver Encephalopathy, unspecified documented in this encounter Care Teams Bus Repair Supervisor Relationship Specialty Start Date End Date Salome Mcarthur APRN [address] [place] [id number] PCP - General Family Medicine 05/30/15 documented as of this encounter
--- OUTSIDE RECORDS SUMMARY | 2023-12-02 18:34 | XMS_ITS | Encounter Summary ---
Author Organization [facility] Address [facility] [place] [address] Care Team Providers Care Manager Fitness Name Role Phone Salome Mcarthur APRN Primary Care Provider [phone] Encounter Details Date Type Department Care Team (Late st Contact Info) Description 12/06/2020 2:00 PM EDT Office [place] [address] Lani Wallis APRN [facility] [place] [address] Hepatic cirrhosis, unspecified hepatic cirrhosis type, unspecified [...] Sign Reading Time Taken Comments Blood Pressure 120/55 12/06/2020 2:20 PM EDT Pulse 92 12/06/2020 2:20 PM EDT Temperature - - Respiratory Rate - - Oxygen Saturation - - Inhaled Oxygen Concentration - - Weight 60.1 kg (132 lb 8 oz) 12/06/2020 2:20 PM EDT Height 154.9 cm (5' 1) 12/06/2020 2:20 PM EDT Body Mass Index 25.04 12/06/2020 2:20 PM EDT documented in this encounter Progress Notes * Lani Wallis APRN - 12/06/2020 2:00 PM EDT Hepatology Follow Up Note Patient: Nick Mendieta Gender: female : 1940 Provider: Lani Wallis NP Referring Physician: Salome Mcarthur APRN HISTORY OF PRESENT ILLNESS Nick Mendieta is a 80 y.o. year old female With BA Cirrhosis who returns today for follow up. Taking a pill every day for bladder infections, had 3 in a row and now taking a medication daily. She has been doing okay otherwise. Her niece suddenly recently which has been difficult. She denies any ascites, encephalopathy, blood in stool. PAST MEDICAL/SURGICAL HISTORY 1. Cirrhosis due to [...] Outpatient Medications Marked as Taking for the 12/06/20 encounter (Office Visit) with Lani Wallis APRN Medication Sig Dispense Refill ??? Victoza 2-Jl 0.6 mg/0.1 mL (18 mg/3 mL) Pen Injector ??? Byetta 10 mcg/dose(250 mcg/mL) 2.4 mL Pen Injector ??? lisinopril (PRINIVIL;ZESTRIL) 20 mg Tablet Take 20 mg by mouth daily. ??? fluticasone propionate (FLONASE) 50 mcg/actuation [place], Suspension 1 spray daily. ??? pramipexole (MIRAPEX) 0.125 mg Tablet ??? glipiZIDE (GLUCOTROL XL) 5 mg Tablet Extended Rel 24 hr ??? lactulose (CHRONULAC) 20 gram/30 mL Solution Take 15 mLs by mouth 2 times daily. 1000 mL 3 ??? diphenhydrAMINE (BENADRYL) 25 mg Capsule Take 25 mg by mouth every 6 hours as needed for Itching. ??? fenofibrate (TRICOR) 145 mg Tablet Reported on 08/21/2016 ??? nystatin (MYCOSTATIN) 100,000 unit/mL Suspension as needed. 0 ??? clonazePAM (KLONOPIN) 0.5 mg Tablet nightly. ??? gabapentin (NEURONTIN) 600 mg tablet Take 600 mg by mouth 2 times [...] mouth as needed. Reported on 08/21/2016 ??? Calvert-3 Fatty Acids-Vitamin E (FISH OIL) 1,000 mg Cap Take 3,000 mg by mouth daily. ??? multivitamin (THERAGRAN) tablet Take 1 tablet by mouth daily. ??? amitriptyline (ELAVIL) 50 mg tablet Take 50 mg by mouth nightly. Current Facility-Administered Medications for the 12/06/20 encounter (Office Visit) with Lani Wallis APRN Medication Dose Route Frequency Provider [...] 29 of acute hepatitis PHYSICAL EXAM Vitals: 12/06/20 1420 BP: 120/55 BP Location (NB): Right arm Patient Position: Sitting BP Cuff Sizes: Adult (25-34 cm) Pulse: 92 Weight: 60.1 kg (132 lb 8 oz) Height: 154.9 cm (5' 1) Body mass index is 25.04 kg/m??. Exam: Appears well. No apparent distress. Lab Results Component Value Date WBC 5.3 12/06/2020 HGB 12.3 12/06/2020 HCT 37.0 12/06/2020 MCV 93.0 12/06/2020 PLATELET 93 (L) 12/06/2020 Recent Labs 12/06/20 1234 INR 1.0 Chemistry Component Value Date/Time NA 141 12/06/2020 1234 K 4.4 12/06/2020 1234 CL 103 12/06/2020 1234 CO2 26 12/06/2020 1234 BUN 23 (H) 12/06/2020 1234 CREATININE 0.78 12/06/2020 1234 Component Value Date/Time CALCIUM 10.2 12/06/2020 1234 ALKPHOS 82 12/06/2020 1234 AST 35 (H) 12/06/2020 1234 ALT 36 (H) 12/06/2020 1234 BILITOT 0.7 12/06/2020 1234 MELD-Na score: 6 at 12/06/2020 12:34 PM MELD score: 6 at 12/06/2020 12:34 PM Calculated from: Serum Creatinine: 0.78 mg/dL (Using min of 1 mg/dL) at 12/06/2020 12:34 PM Serum Sodium: 141 mmol/L (Using max of 137 mmol/L) at 12/06/2020 12:34 PM Total Bilirubin: 0.7 mg/dL (Using min of 1 mg/dL) at 12/06/2020 12:34 PM INR(ratio): 1.0 at 12/06/2020 12:34 PM Age: 80 years EGD 09/26/2020: Impression: ?- Small (< 5 mm) esophageal varices. ?- Mild antral gastritis. ?- Normal examined duodenum. ?- No specimens collected. Recommendation: ?- Discharge patient to home. ?- Resume previous diet. ?- Return to liver clinic. ? - Repeat upper endoscopy in 1 year ?for surveillance. Ultrasound 09/26/20: IMPRESSION ?? 1. Hepatomegaly with coarse parenchyma and capsular nodularity 2. There is a calcified lesion adjacent to the main portal vein measuring 9 mm. This was seen on the prior exam. 3. There is an echogenic lesion in the posterior LEFT lobe. Seen on prior. 4. Status post cholecystectomy. The common duct measures 8 mm. It was measured at 4 mm in May 2020 5. No ascites ASSESSMENT/PLAN Nick Mendieta is a 80 y.o. 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 1. Cirrhosis. Diagnosed by fibroscan. Well compensated. MELD 6. 2. BA. Her metabolic risks include diabetes, hypertension, elevated cholesterol, overweight. She has been working on controlling her blood sugar and we discussed that this is a great goal for also treating her BA. Her current medications: Metformin and Victoza are excellent agents for also treating her fatty liver, as well kyra diabetes. 3. Portal hypertension. EGD done 09/2020 with small varices, stable from year prior. Plan to repeat in 1 year (09/2021). 4. HCC surveillance. US 09/2020 with no new lesions. Can repeat US in 6 months. 5. Hepatic encephalopathy. She has Lactulose at home, thinking appears clear today. 6. Lung nodule. Followed by PCP, we did not discuss today. 7. Preventative health. She should have annual flu vaccine. Plan: - Follow up in 03/2021 with labs, US and visit. Lani Wallis APRN Section of Gastroenterology [place] [address] Copy: Salome Mcarthur APRN [address] / [place] [address] Time spent reviewing records prior to this encounter: 5 minutes Time spent during encounter with patient including counselin minutes Time spent documenting encounter on date of service: 5 minutes Approximate total time devoted to this single encounter on date of service: 30 minutes documented in this encounter Plan of Treatment Upcoming Encounters Date Type Department Care Team (Late st Contact Info) Description 02/06/2024 11:30 AM EDT [place] [phone] Lani Wallis APRN [facility] [place] [address] 02/06/2024 12:15 PM EDT Laboratory Appointment Lab [address] [place] [phone] 02/06/2024 1:30 PM EDT Office [place] [phone] Lani Wallis APRN [facility] [place] [address] documented as of this encounter Results * Prothrombin Time (06/01/2021 10:31 AM EST) Prothrombin Time 12.1 9.4 - 12.5 sec [facility] International Normalization Ratio 1.1 [facility] Comment: An INR <2.0 indicates [...] be appropriate depending on clinical circumstances. Blood 06/01/2021 10:3 1 AM EST 06/01/2021 10:41 AM EST Narrative Resulting Agency Comment Spec In Lab Lani Wallis APRN HEMATOLOGY ORDERAB LES [facility] [place] [address] * (ABNORMAL) Comprehensive metabolic panel (non-fasting) (06/01/2021 10:31 AM EST) Glucose 187 65 - 199 mg/dL [facility] Comment:Diabetes: >=200 mg/d L plus symptoms Blood Urea Nitrogen 16 8 - 18 mg/dL [facility] Creatinine 0.61(L) 0.70 - 1.20 mg/dL [facility] Sodium 139 135 - 145 mmol/L [facility] Potassium 4.3 3.5 - 5.0 mmol/L [facility] Comment: Please note: ??Patients with WBC >100,000 may have falsely elevated Potassium levels. ??For accurate Potassium quantification in these patients send serum separator tube (gold top) for subsequent determinations. ??Contact the Clinical Chemistry Laboratory if there are any questions. Chloride 102 98 - 107 mmol/L [facility] Carbon Dioxide 25 22 - 31 mmol/L [facility] Anion Gap 12 5 - 15 mmol/L [facility] Calcium 10.0 8.5 - 10.5 mg/dL [facility] Protein, Total 6.8 6.1 - 8.0 g/dL [facility] Albumin 4.3 3.2 - 5.2 g/dL [facility] Aspartate Aminotransferase 45(H) 0 - 30 unit/L [facility] Alanine Aminotransferase 60(H) 0 - 30 unit/L [facility] Alkaline Phosphatase 95 35 - 105 unit/L [facility] Bilirubin, Total 0.7 0.2 - 1.3 mg/dL [facility] Est Glomerular Filtration Rate 86 >=60 mL/min/1. 73 m?? [facility] Comment: This patient? s estimated glomerular filtration rate (eGFR) is between 86 mL/min/1.73 m2 (patients with less muscle mass) and 100 mL/min/1.73 m2 (patients with more muscle mass) [...] and symptoms in addition to eGFR. Blood 06/01/2021 10:3 1 AM EST 06/01/2021 10:41 AM EST Narrative Resulting Agency Comment Spec In Lab Lani Wallis APRN CHEMISTRY ORDERABL ES [facility] [place] [address] * US Abdomen Limited Hepatology Protocol (06/01/2021 9:49 AM EST) Anatomical Region Laterality Modality Abdomen Ultrasound 06/01/2021 9:47 AM EST Impressions 06/01/2021 10:02 AM EST Comparison 09/26/2020. 1. ??Stable enlarged nodular coarsened liver consistent with known cirrhosis. Stable small echogenic hemangioma again noted. No new discrete liver lesions are identified. No ascites. Normal hepatopedal flow is seen in the main portal vein. Thank you for letting us participate in the care of this patient. If you are a health care provider and have any questions regarding this report, please contact the number above. For patients who have questions, please contact the health respiratory care practitioner that requested your imaging first. ?Marilee Hernández-Pepito, Staff Physician Electronically Signed Final Report ?? 06/01/2021 10:01 am Narrative 06/01/2021 10:02 AM EST Abdominal ? (Signed Final 06/01/2021 10:01 am) PATIENT INFO: ID #: ? [id number] ?: ??[birth year] (80 yrs)(F) Name: ? NICK MENDIETA ?Visit Date: 06/01/2021 09:47 am PERFORMED BY: Performed By: ? Lana Gotti RDMS Attending: ?Betty GALLO, Marilee Ragsdale Referred By: ?LANI WALLIS Secondary Phy.: ?? LANI WALLIS SEWING MACHINE OPERATOR SEMIAUTOMATIC Location: ? [place] SERVICE(S) PROVIDED: [facility] - Hepatology Protocol - Abdominal ? [id number] Limited Survey Single Organ or Quadrant - [id number] INDICATIONS: cirrhosis, screen for hcc ------ LIVER: ------ Right Lobe Length: ?? 20.2 ?? cm Echogenicity/Echotexture: ?? Coarse parenchyma with capsular ? nodularity -------- Lesions: -------- # ?Date ?Location ?Description ?L ?AP ?TV (cm) ?06/01/21 ?Left Lobe ? Hyperechoic, ?0.5 ?0.5 ? 0.5 ?Avascular ?09/26/20 ?Posterior ? Echogenic ? 0.6 ?0.4 ? 0.7 ?Left Lobe Comment: ?Calc seen measuring 8 mm GALLBLADDER: Cholelithiasis: ?Surgically absent Focal Tenderness: ?Negative sonographic Marino's sign BILIARY TRACT: Intrahepatic Ducts: ?? Normal Extrahepatic Ducts: ?? Normal Common Duct Size: ? 3.0 ? mm Procedure Note Marilee Hunt MD - 06/01/2021 Abdominal (Signed Final 06/01/2021 10:01 am) PATIENT INFO: ID #: [id number] : [birth year] (80 yrs)(F) Name: NICK MENDIETA Visit Date: 06/01/2021 09:47 am PERFORMED BY: Performed By: Lana Gotti RDMS Attending: Marilee Hernández MD Referred By: LANI WALLIS [facility] Phy.: LANI WALLIS APRN Location: [place] SERVICE(S) PROVIDED: [facility] - Hepatology Protocol - Abdominal 60984 Limited Survey Single Organ or Quadrant - [id number] INDICATIONS: cirrhosis, screen for hcc ------ LIVER: ------ Right Lobe Length: 20.2 cm Echogenicity/Echotexture: Coarse parenchyma with capsular nodularity -------- Lesions: -------- # Date Location Description L AP TV (cm) 06/01/21 Left Lobe Hyperechoic, 0.5 0.5 0.5 Avascular 09/26/20 Posterior Echogenic 0.6 0.4 0.7 Left Lobe Comment: Calc seen measuring 8 mm GALLBLADDER: Cholelithiasis: Surgically absent Focal Tenderness: Negative sonographic Marino's sign BILIARY TRACT: Intrahepatic Ducts: Normal Extrahepatic Ducts: Normal Common Duct Size: 3.0 mm IMPRESSION Comparison 09/26/2020. 1. Stable enlarged nodular coarsened liver consistent with known cirrhosis. Stable small echogenic hemangioma again noted. No new discrete liver lesions are identified. No ascites. Normal hepatopedal flow is seen in the main portal vein. Thank you for letting us participate in the care of this patient. If you are a health care provider and have any questions regarding this report, please contact the number above. For patients who have questions, please contact the health respiratory care practitioner that requested your imaging first. Marilee Her, Staff Physician Electronically Signed Final Report 06/01/2021 10:01 am [facility] ORDERAB [facility] documented in this encounter Visit Diagnoses Diagnosis Hepatic cirrhosis, unspecified hepatic cirrhosis type, unspecified whether ascites present Hepatic cirrhosis, unspecified hepatic cirrhosis type, unspecified whether ascites present documented in this encounter Care Teams Manager Fitness Relationship Specialty Start Date End Date Salome Mcarthur APRN [address] [place] [phone] PCP - General Family Medicine 05/30/15 documented as of this encounter
--- OUTSIDE RECORDS SUMMARY | 2023-12-02 18:34 | XMS_ITS | Encounter Summary ---
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 Procedures PRO UPPER GI ENDOSCOPY, DIAGNOSTIC PRO ANESTH, UGI ENDOSCOPY NOS EGD, UPPER GI ENDOSCOPY (WRVU 2.09) Juliette Chauhan MD [facility] [place] [address] [facility] Referral ID Status Reason Start Date Expiration Date Visits Re quested Visits Authorized [id number] 1 1 Encounter Details Date Type Department Care Team (Latest Contact Info) Description 01/23/2023 11:52 AM EDT - 01/23/2023 1:44 PM EDT Hospital [place] [address] Juliette Chauhan MD [facility] [place] [address] Discharge Disposition: Home Social History Tobacco Use [...] Sign Reading Time Taken Comments Blood Pressure 130/73 01/23/2023 1:00 PM EDT Pulse 106 01/23/2023 12:40 PM EDT Temperature 36.4 ??C (97.5 ??F) 01/23/2023 12:10 PM E DT Respiratory Rate 19 01/23/2023 1:00 PM EDT Oxygen Saturation 96% 01/23/2023 1:05 PM EDT Inhaled Oxygen Concentration - - Weight 62.1 kg (137 lb) 01/23/2023 12:10 PM EDT Height 154.9 cm (5' 1) 01/23/2023 12:10 PM EDT Body Mass Index 25.89 01/23/2023 12:10 PM EDT documented in this encounter Discharge Instructions * Discharge Instructions* Carmen Salmon RN - 01/23/2023 12:51 PM EDT Upper GI Endoscopy: What to Expect at Home Your Recovery You will be able to go home after your doctor or nurse checks to make sure you are not having any problems. You may have to stay overnight if you had treatment during the test. You may have a sore throat fora day or two after the test. This care sheet gives you a general idea about what to expect after the test. How can you care for yourself at home? Activity Rest when you feel tired. You can do your normal activities when it feels okay to do so. Diet Follow your doctor's directions for eating. Unless your doctor has told you not to, drink plenty of fluids. This helps to replace the fluids that were lost during the prep. Do not drink alcohol. Medicines Your doctor will tell you if and when you can restart your medicines. He or she will also give you instructions about taking any new medicines. If you take blood thinners, such as warfarin (Coumadin), clopidogrel (Plavix), or aspirin, be sure to talk to your doctor. He or she will tell you if and when to start taking those medicines again. Make sure that you understand exactly what your doctor wants you to do. If polyps were removed or a biopsy was done during the test, your doctor may tell you not to take aspirin or other anti-inflammatory medicines for a few days. These include ibuprofen (Advil, Motrin) and naproxen (Aleve). If you have a sore throat the day after the procedure, use an [id number] spray to numb your throat. Sucking on throat lozenges and gargling with warm salt water may also help relieve your symptoms. Other instructions For your safety, do not drive or operate machinery until the medicine wears off and you can think clearly. Your doctor may tell you not to drive or operate machinery until the day after your test. Do not sign legal documents or make major decisions until the medicine wears off and you can think clearly. The anesthesia can make it hard for you to fully understand what you are agreeing to. Additional Information for Sedation Patients For patients who received sedation: You may have received medications before and/or during your procedure which effects your judgement and reaction time. Do not drive, operate machinery, drink alcoholic beverages or make important decisions for 24 hours. Be careful on stairs as you may be unsteady on your feet. You may eat a regular diet as tolerated. Do not smoke if you are alone. IV site: Slight redness or tenderness is normal, you can use a warm compress if you would like. If tenderness and/or redness increase or if foul drainage occurs, please contact your Doctor. Please call [phone] before 8pm Mon-Fri with problems, questions or concerns. If you call after 8pm or on weekends, call the Hospital at [phone] and ask to speak to the Commercial Banker manager functional and the bundling machine operator will contact that person for you. When should you call for help? Call 125 anytime you think you may need emergency care. For example, call if: You passed out (lost consciousness). You pass maroon or bloody stools. You have trouble breathing. Call your doctor now or seek immediate medical care if: You have pain that does not get better after you take pain medicine. You are sick to your stomach or cannot drink fluids. You have new or worse belly pain. You have blood in your stools. You have a fever. You cannot pass stools or gas. Watch closely for changes in your health, and be sure to contact your doctor if you have any problems. Where can you learn more? [facility] View your After Visit Summary and more online at [email or web address] If you would like to provide feedback about your hospital experience, please call the Office of Patient and Family Relations at . If you have received this After Visit Summary in error, please immediately return it in person to the department, or notify the [facility] Privacy Office by calling toll free at between the hours of 8AM and 5PM to arrange for our retrieval of the documents at no cost to you. Content Version: 12.2 ?? [id number] [employer]. Care instructions adapted under license by [facility]. If you have questions about a medical condition or this instruction, always ask your healthcare professional. [employer] disclaims any warranty or liability for your use of this information. documented in this encounter Medications at Time of Discharge Medication Sig Dispensed Refills Start Date End Date lisinopriL (Zestril) 10 mg tablet Take 1 tablet by mouth once a day for kidney protection 06/06/2009 atorvastatin (Lipitor) 20 mg Tablet Take 20 mg by mouth daily. Victoza 2-Jl 0.6 mg/0.1 mL (18 mg/3 mL) Pen Injector Inject 1.8 mg as directed. 05/02/2020 fluticasone propionate (FLONASE) 50 mcg/actuation Gerald, Suspension 1 spray daily. pramipexole (MIRAPEX) 0.125 [...] 100 mg capsule Take by mouth. 02/24/2009 omeprazole (PriLOSEC) 40 mg Capsule, Delayed Release(E.C.) Take 1 capsule by mouth daily. 30 capsule 11 06/06/2022 04/29/2023 fluconazole (Diflucan) 100 mg Tablet TAKE 2 TABLETS BY MOUTH ON DAY 1 THEN TAKE 1 TABLET BY MOUTH ONCE DAILY SAME TIME EACH DAY FOR NEXT 14 DAYS 08/16/2021 08/08/2023 red yeast rice 600 mg Tab Take 600 mg by mouth 2 times daily. 08/08/2023 documented as of this encounter H&P Notes * Juliette Chauhan MD - 01/23/2023 12:19 PM EDT Patient Name: Milka Corbett Patient Age: 82 y.o. Birthdate: 1940 Admit date: 01/23/2023 Attending Physician: Juliette Chauhan MD Gastroenterology and Hepatology Pre-Procedure History and Physical Exam Procedure: EGD: Indication: cirrhosis, f/u small varices Patient Active Problem List Diagnosis Code Bladder cancer C67.9 S/P hysterectomy Z90.710 Vaginal lesion N89.8 Mixed incontinence N39.46 NAFLD (nonalcoholic fatty liver disease) K76.0 Hepatic cirrhosis K74.60 EXAM: HEENT: Airway examined, oropharynx clear Mallampati Score: II (soft palate, uvula, fauces visible) LUNGS: Clear to auscultation HEART: Regular rate and rhythm, normal S1, S2 ABDOMEN: Normal bowel sounds, soft, non tender, non distended, A/P Proceed with the planned endoscopic procedure. ASA 2 - Patient with mild systemic disease with no functional limitations Sedation Plan: moderate (conscious sedation) Risks and benefits of the procedure explained to the patient. Consent signed. documented in this encounter Plan of Treatment Upcoming Encounters Date Type Department Care Team (Late st Contact Info) Description 02/06/2024 11:30 AM EDT [place] [phone] Molly Cui, [facility] [address] 02/06/2024 12:15 PM EDT Laboratory Appointment Lab [address] [place] [phone] 02/06/2024 1:30 PM EDT Office [place] [phone] Molly Cui, [facility] [place] [address] documented as of this encounter Procedures Procedure Name Priority Date/Time Associated Diagnosis Comments Upper GI Endoscopy, Diagnostic (67951) 01/23/2023 12:23 PM EDT Hepatic cirrhosis, unspecified hepatic cirrhosis type, unspecified whether ascites present UPPER GI ENDOSCOPY Routine 01/23/2023 12 :11 PM EDT documented in this encounter Results * UPPER GI ENDOSCOPY (01/23/2023 12:11 PM EDT) UPPER GI ENDOSCOPY [facility] Endoscopy Procedure Date: 01/23/2023 12:11 PM ? Patient Name: Milka Corbett ? Date of : 1940 ? Age: 82 ? Order #: [id number] ? Instrument Name: [id number] ? Procedure: ? Upper GI endoscopy Indications: ? Follow-up of esophageal varices Providers: ? Juliette Chauhan MD, Yaw R. ? TRISHA Boyd, Kalpana Perez MD: ?Sophia Mcarthur MD Medicines: ? Midazolam 1 mg IV, Fentanyl 50 ? micrograms IV Complications: ? No immediate complications. Procedure: ? Pre-Anesthesia Assessment: ? - Prior to the procedure, a History ? and Physical was performed, and ? patient medications and allergies ? were reviewed. The patient's ? tolerance of previous anesthesia ? was also reviewed. The risks and ? benefits of the procedure and the ? sedation options and risks were ? discussed with the patient. All ? questions were answered, and ? informed consent was obtained. ? Prior Anticoagulants: The patient ? has taken no anticoagulant or ? antiplatelet agents. ASA Grade ? Assessment: II - A patient with ? mild systemic disease. After ? reviewing the risks and benefits, ? the patient was deemed in ? satisfactory condition to undergo ? the procedure. ? The procedure, indications, ? benefits, risks and alternatives ? were explained to the patient. ? Specifically discussed were ? potential complications including, ? but not limited to, bleeding, ? perforation, infection, missing a ? cancer, and adverse medication ? reactions. The Endoscope was ? introduced through the mouth, and ? advanced to the second part of ? duodenum The upper GI endoscopy was ? accomplished without difficulty. ? The patient tolerated the procedure ? well. ? Findings: ? Esophagogastric landmarks were identified: the Z-line ? was found at 37 cm, the upper extent of the gastric ? folds was found at 37 cm and the site of hiatal ? narrowing was found at 37 cm from the incisors. ? Small (< 5 mm) varices were found in the lower third ? of the esophagus, but were on the borderline of being ? large. ? The entire examined stomach was normal. ? The examined duodenum was normal. ? Moderate Sedation: ? I was present during the intraservice time as ? documented by the sedation RN. Impression: ?- Esophagogastric landmarks ? identified. ? - Small (< 5 mm) esophageal varices. ? - Normal stomach. ? - Normal examined duodenum. ? - No specimens collected. Recommendation: ?- Return to referring physician. ? Consider starting non-selective ? beta-rvea ? Attending Participation: ? I personally performed the entire procedure. ? Juliette Chauhan MD Juliette Chauhan MD 01/23/2023 12:50:06 PM This report has been signed electronically. Number of Addenda: 0 Note Initiated On: 01/23/2023 12:11 PM PROVATION 01/23/2023 12:1 1 PM EDT Salome Mcarthur [employer] documented in this encounter Visit Diagnoses Not on filedocumented in this encounter Administered Medications Inactive Administered Medications - up to 3 most recent administrations Medication Order MAR Action Action Date Dose Rate Site lactated ringers infusion 100 mL/hr, Intravenous, CONTINUOUS, Starting on Sat01/23/23 at 1230, Until Sat01/23/23 at 1549, Endoscopy (Day of Procedure) New Bag 01/23/2023 12:20 PM EDT 100 mL/hr 100 mL/hr documented in this encounter Active and Recently Administered Medications Times are shown in EDT. Continuous Medication Order 01/21/2023 01/22/2023 01/23/2023 lactated ringers infusion 100 mL/hr, Intravenous, CONTINUOUS, Starting on Sat01/23/23 at 1230, Until 01/23/23 at 1549, Endoscopy (Day of Procedure) 1220 (New Bag - Prov ider: Jessika Anand, TRISHA) PRN Medication Order 01/21/2023 01/22/2023 01/23/2023 fentaNYL (pf) (50 mcg/mL) multi-dose injection (CANCELED) PRN, Starting on Sat01/23/23 at 1124, Until Sat01/23/23 at 1549, Intra-Operative (Intra-Procedure), Routine 1124 (Canceled Entry - Provider: Kalpana Swan RN)1125 (Given - Provider: Kalpana Swan RN)1128 (Given - Provider: Kalpana Swan, RN) midazolam (pf) (Versed) (1 mg/mL) multi-dose injection (CANCELED) PRN, Starting on Sat01/23/23 at 1224, Until Sat01/23/23 at 1549, Intra-Operative (Intra-Procedure), Routine 1224 (Given - Provid er: Kalpana Swan RN)1227 (Given - Provider: Kalpana Swan RN) documented in this encounter Care Teams Java Core Developer Relationship Specialty Start Date End Date Salome Mcarthur, LORETO [address] [place] [address] PCP - General Family Medicine 05/30/15 documented as of this encounter
--- OUTSIDE RECORDS SUMMARY | 2023-12-02 18:34 | XMS_ITS | Encounter Summary ---
Author Organization [facility] Address [facility] [place] [address] Care Team Providers Care Skin Tanner Name Role Phone Salome Mcarthur APRN Primary Care Provider [phone] Encounter Details Date Type Department Care Team (Latest Contact Info) Description 11/29/2021 11:30 AM EDT Laboratory Appointment Lab [address] [place] [phone] Hepatic cirrhosis, unspecified hepatic cirrhosis type, unspecified [...] 02/06/2024 11:30 AM EDT [place] [phone] Molly Cui [employer] ADMINISTRATOR [facility] [place] [address] 02/06/2024 12:15 PM EDT Laboratory Appointment Lab [address] [place] [phone] 02/06/2024 1:30 PM EDT Office [place] [address] Molly Cui APRN [facility] [place] [address] documented as of this encounter Procedures Procedure Name Priority Date/Time Associated Diagnosis Comments HEMOGRAM Routine 11/29/2021 11:04 AM EDT Hepatic cirrhosis, unspecified hepatic cirrhosis type, unspecified whether ascites present DIFFERENTIAL, AUTOMATED Routine 11/29/2021 11:04 AM EDT Hepatic cirrhosis, unspecified hepatic cirrhosis type, unspecified whether ascites present HC VENIPUNCTURE Routine 11/29/2021 11:04 AM EDT Hepatic cirrhosis, unspecified hepatic cirrhosis type, unspecified whether ascites present HC PROTHROMBIN TIME Routine 11/29/2021 1 1:04 AM EDT Hepatic cirrhosis, unspecified hepatic cirrhosis type, unspecified whether ascites present HC CBC,PLT & AUTO DIFF Routine 2 11:04 AM EDT Hepatic cirrhosis, unspecified hepatic cirrhosis type, unspecified whether ascites present COMPREHENSIVE METABOLIC PANEL Routine 11/29/2021 11:04 AM EDT Hepatic cirrhosis, unspecified hepatic cirrhosis type, unspecified whether ascites present documented in this encounter Results * Differential, Automated (11/29/2021 11:04 AM EDT) Neutrophil % 65.7 % [facility] Neutrophil Absolute 5.57 1.70 - 6.10 x10(3)/[facility] Lymph % 21.4 % [facility] Lymphocytes Abs 1.8 0.9 - 3.2 x10(3)/[facility] Monocyte % 10.3 % [facility] Monocyte Abs 0.9 0.3 - 0.9 x10(3)/[facility] Eos % 1.9 % [facility] Eosinophils Abs 0.2 0.0 - 0.4 x10(3)/[facility] Basophil % 0.5 % [facility] Baso Absolute 0.0 0.0 - 0.1 x10(3)/[facility] Immature Gran % 0.20 % [facility] Comment: Immature granulocytes(IG's)percentage and absolute count will include metamyelocytes, myelocytes, and promyelocytes. Blood smears from CBCs yielding IG's will be scanned manually for concordance. If this scan disagrees with the automated IG or if promyelocytes are noted, a manual differential will be performed. Immature Gran Absolute 0.02 0.00 - 0.04 x10(3)/[facility] Blood 11/29/2021 11:0 4 AM EDT 11/29/2021 11:12 AM EDT Narrative Resulting Agency Comment Spec In Lab Molly Cui APRN HEMATOLOGY ORDERAB LES Performing Organization Address City/State/[facility] Co de Phone Number [facility] [place] [address] * (ABNORMAL) Hemogram (11/29/2021 11:04 AM EDT) White Blood Cell 8.5 4.0 - 9.5 x10(3)/[facility] Red Blood Cell 4.44 4.00 - 5.21 x10(6)/[facility] Hemoglobin 13.6 11.7 - 15.5 g/dL [facility] Hematocrit 40.2 35.7 - 45.8 % [facility] Mean Cell Volume 90.5 82.6 - 94.4 fL [facility] Mean Cell Hemoglobin 30.6 27.1 - 32.0 pg [facility] Mean Cell Hemoglobin Concentration 33.8 31.7 - 35.0 g/dL [facility] Platelet 93(L) 145 - 357 x10(3)/[facility] RDW Standard Deviation 42.5 37.0 - 46.0 fL [facility] RDW coefficient of variation 12.9 11.5 - 14.1 % [facility] Mean Platelet Volume 11.8 7.6 - 12.9 fL [facility] NRBC% auto 0.0 % [facility] NRBC Absolute 0.000 0.000 - 0.000 x10(3)/mcL [facility] Blood 11/29/2021 11:0 4 AM EDT 11/29/2021 11:12 AM EDT Narrative Resulting Agency Comment Spec In Lab Molly Cui APRN HEMATOLOGY ORDERAB LES [facility] [place] [address] * (ABNORMAL) Comprehensive metabolic panel (non-fasting) (11/29/2021 11:04 AM EDT) Glucose 122 65 - 199 mg/dL [facility] Comment:Diabetes: >=200 mg/d L plus symptoms Blood Urea Nitrogen 18 8 - 18 mg/dL [facility] Creatinine 0.64(L) 0.70 - 1.20 mg/dL [facility] Sodium 140 135 - 145 mmol/L [facility] Potassium 4.2 3.5 - 5.0 mmol/L [facility] Comment: Please note: ??Patients with WBC >100,000 may have falsely elevated Potassium levels. ??For accurate Potassium quantification in these patients send serum separator tube (gold top) for subsequent determinations. ??Contact the Clinical Chemistry Laboratory if there are any questions. Chloride 101 98 - 107 mmol/L [facility] Carbon Dioxide 27 22 - 31 mmol/L [facility] Anion Gap 12 5 - 15 mmol/L [facility] Calcium 11.0(H) 8.5 - 10.5 mg/dL [facility] Protein, Total 7.4 6.1 - 8.0 g/dL [facility] Albumin 4.5 3.2 - 5.2 g/dL [facility] Aspartate Aminotransferase 32(H) 0 - 30 unit/L [facility] Alanine Aminotransferase 39(H) 0 - 30 unit/L [facility] Alkaline Phosphatase 100 35 - 105 unit/L [facility] Bilirubin, Total 0.9 0.2 - 1.3 mg/dL [facility] Est Glomerular Filtration Rate 89 >=60 mL/min/1. 73 m?? [facility] Comment: This patient's estimated GFR [...] and symptoms in addition to eGFR. Blood 11/29/2021 11:0 4 AM EDT 11/29/2021 11:12 AM EDT Narrative Resulting Agency Comment Spec In Lab Molly Cui APRN CHEMISTRY ORDERABL ES [facility] [place] [address] * (ABNORMAL) Prothrombin Time (11/29/2021 11:04 AM EDT) Prothrombin Time 13.3(H) 9.4 - 12.5 sec [facility] International Normalization Ratio 1.2 [facility] Comment: An INR <2.0 indicates [...] be appropriate depending on clinical circumstances. Blood 11/29/2021 11:0 4 AM EDT 11/29/2021 11:12 AM EDT Narrative Resulting Agency Comment Spec In Lab Molly Cui APRN HEMATOLOGY ORDERAB LES Performing Organization Address City/[facility]/ZIP Co de Phone Number [facility] [place] [address] * AFP tumor marker (11/29/2021 11:04 AM EDT) Alpha Fetoprotein 3.2 <=8.3 ng/mL [facility] Comment: This result was generated using a Janet Maylin immunoassay. ??Results obtained from other methods or manufacturers cannot be used interchangeably with this method. Blood 11/29/2021 11:0 4 AM EDT 11/29/2021 11:12 AM EDT Narrative Resulting Agency Comment Spec In Lab Molly Cui APRN CHEMISTRY ORDERABL ES Performing Organization Address [facility] Co de Phone Number [facility] [place] [address] documented in this encounter Visit Diagnoses Diagnosis Hepatic cirrhosis, unspecified hepatic cirrhosis type, unspecified whether ascites present documented in this encounter Care Teams Skin Tanner Relationship Specialty Start Date End Date Salome Mcarthur APRN [address] [place] [address] PCP - General Family Medicine 05/30/15 documented as of this encounter
--- OUTSIDE RECORDS SUMMARY | 2023-12-02 18:34 | XMS_ITS | Encounter Summary ---
Author Organization [facility] Address [facility] [place] [address] Care Team Providers Care Wrapper Layer And Examiner Soft Work Name Role Phone Salome Mcarthur APRN Primary Care Provider [phone] Encounter Details Date Type Department Care Team (Latest Contact Info) Description 06/06/2022 12:30 PM EST Laboratory Appointment Lab [address] [place] [phone] Hepatic cirrhosis, unspecified hepatic cirrhosis type, unspecified [...] 02/06/2024 11:30 AM EDT Appointment [place] [phone] Molly Cui CLEARANCE COORDINATOR [facility] [place] [address] 02/06/2024 12:15 PM EDT Laboratory Appointment Lab [address] [place] [phone] 02/06/2024 1:30 PM EDT Office Visit [place] [phone] Molly Cui APRN [facility] [place] [address] documented as of this encounter Procedures Procedure Name Priority Date/Time Associated Diagnosis Comments HEMOGRAM Routine 06/06/2022 12:46 PM EST Hepatic cirrhosis, unspecified hepatic cirrhosis type, unspecified whether ascites present DIFFERENTIAL, AUTOMATED Routine 06/06/2022 12:46 PM EST Hepatic cirrhosis, unspecified hepatic cirrhosis type, unspecified whether ascites present HC PROTHROMBIN TIME Routine 06/06/2022 1 2:46 PM EST Hepatic cirrhosis, unspecified hepatic cirrhosis type, unspecified whether ascites present HC CBC,PLT & AUTO DIFF Routine 12:46 PM EST Hepatic cirrhosis, unspecified hepatic cirrhosis type, unspecified whether ascites present COMPREHENSIVE METABOLIC PANEL Routine 06/06/2022 12:46 PM EST Hepatic cirrhosis, unspecified hepatic cirrhosis type, unspecified whether ascites present documented in this encounter Results * Differential, Automated (06/06/2022 12:46 PM EST) Neutrophil % 55.9 % [facility] Neutrophil Absolute 3.25 1.70 - 6.10 x10(3)/[facility] Lymph % 30.1 % [facility] Lymphocytes Abs 1.8 0.9 - 3.2 x10(3)/[facility] Monocyte % 11.4 % [facility] Monocyte Abs 0.7 0.3 - 0.9 x10(3)/[facility] Eos % 1.9 % [facility] Eosinophils Abs 0.1 0.0 - 0.4 x10(3)/[facility] Basophil % 0.5 % [facility] Baso Absolute 0.0 0.0 - 0.1 x10(3)/[facility] Immature Gran % 0.20 % [facility] Comment: Immature granulocytes(IG's)percentage and absolute count will include metamyelocytes, myelocytes, and promyelocytes. Blood smears from CBCs yielding IG's will be scanned manually for concordance. If this scan disagrees with the automated IG or if promyelocytes are noted, a manual differential will be performed. Immature Gran Absolute 0.01 0.00 - 0.04 x10(3)/[facility] Blood 06/06/2022 12:4 6 PM EST 06/06/2022 12:49 PM EST Narrative Resulting Agency Comment Spec In Lab Molly Cui APRN HEMATOLOGY ORDERAB LES [facility] [place] [address] * (ABNORMAL) Hemogram (06/06/2022 12:46 PM EST) White Blood Cell 5.8 4.0 - 9.5 x10(3)/[facility] Red Blood Cell 4.22 4.00 - 5.21 x10(6)/[facility] Hemoglobin 12.7 11.7 - 15.5 g/dL [facility] Hematocrit 38.7 35.7 - 45.8 % [facility] Mean Cell Volume 91.7 82.6 - 94.4 fL [facility] Mean Cell Hemoglobin 30.1 27.1 - 32.0 pg [facility] Mean Cell Hemoglobin Concentration 32.8 31.7 - 35.0 g/dL [facility] Platelet 85(L) 145 - 357 x10(3)/[facility] RDW Standard Deviation 45.1 37.0 - 46.0 fL [facility] RDW coefficient of variation 13.3 11.5 - 14.1 % [facility] Mean Platelet Volume 11.2 7.6 - 12.9 fL [facility] NRBC% auto 0.0 % [facility] NRBC Absolute 0.000 0.000 - 0.000 x10(3)/[facility] Blood 06/06/2022 12:4 6 PM EST 06/06/2022 12:49 PM EST Narrative Resulting Agency Comment Spec In Lab Molly A Basilia CLEARANCE COORDINATOR HEMATOLOGY ORDERAB LES [facility] [place] [place] [address] * (ABNORMAL) Comprehensive metabolic panel (non-fasting) (06/06/2022 12:46 PM EST) Glucose 107 65 - 199 mg/dL [facility] Comment:Diabetes: >=200 mg/d L plus symptoms Blood Urea Nitrogen 15 8 - 18 mg/dL [facility] Creatinine 0.66(L) 0.70 - 1.20 mg/dL [facility] Sodium 141 135 - 145 mmol/L [facility] Potassium 4.2 3.5 - 5.0 mmol/L [facility] Comment: Please note: ??Patients with WBC >100,000 may have falsely elevated Potassium levels. ??For accurate Potassium quantification in these patients send serum separator tube (gold top) for subsequent determinations. ??Contact the Clinical Chemistry Laboratory if there are any questions. Chloride 104 98 - 107 mmol/L [facility] Carbon Dioxide 27 22 - 31 mmol/L [facility] Anion Gap 10 5 - 15 mmol/L [facility] Calcium 10.4 8.5 - 10.5 mg/dL [facility] Protein, Total 6.9 6.1 - 8.0 g/dL [facility] Albumin 4.3 3.2 - 5.2 g/dL [facility] Aspartate Aminotransferase 33(H) 0 - 30 unit/L [facility] Alanine Aminotransferase 34(H) 0 - 30 unit/L [facility] Alkaline Phosphatase 98 35 - 105 unit/L [facility] Bilirubin, Total 0.6 0.2 - 1.3 mg/dL [facility] Est Glomerular Filtration Rate 89 >=60 mL/min/1. 73 m?? [facility] Comment: This patient's estimated GFR was [...] and symptoms in addition to eGFR. Blood 06/06/2022 12:4 6 PM EST 06/06/2022 12:49 PM EST Narrative Resulting Agency Comment Spec In Lab Molly Cui APRN CHEMISTRY ORDERABL ES Performing Organization Address [facility] Co de Phone Number [facility] [place] [address] * (ABNORMAL) Prothrombin Time (06/06/2022 12:46 PM EST) Prothrombin Time 12.9(H) 9.4 - 12.5 sec [facility] International Normalization Ratio 1.1 [facility] Comment: An INR <2.0 indicates adequate procoagulant activity for hemostasis in most patients without underlying bleeding disorders, though the INR may not adequately reflect hemostatic capacity in patients with liver disease and synthetic impairment. The recommended target INR range for therapeutic anticoagulation is 2.0 ? 3.0 for most applications, though lower and higher ranges may be appropriate depending on clinical circumstances. Blood 06/06/2022 12:4 6 PM EST 06/06/2022 12:49 PM EST Narrative Resulting Agency Comment Spec In Lab Molly Cui APRN HEMATOLOGY ORDERAB LES Performing Organization Address [facility] Co de Phone Number [facility] [place] [address] documented in this encounter Visit Diagnoses Diagnosis Hepatic cirrhosis, unspecified hepatic cirrhosis type, unspecified whether ascites present documented in this encounter Care Teams Wrapper Layer And Examiner Soft Work Relationship Specialty Start Date End Date Salome Mcarthur APRN [address] [place] [address] PCP - General Family Medicine 05/30/15 documented as of this encounter
--- OUTSIDE RECORDS SUMMARY | 2023-12-02 18:34 | XMS_ITS | Encounter Summary ---
Author Organization [facility] Address [facility] [place] [address] Care Team Providers Care Vehicle Assembler Name Role Phone Salome Mcarthur APRN Primary Care Provider [phone] Reason for Visit * Auth/Cert Specialty Diagnoses / Procedures Referred By Contruth t Referred To Contact Diagnoses Biliary liver cirrhosis cirrhosis, screen for varices. small varices seen 09/2019. Due for repeat 09/2020 PLEASE DON'T MOVE PT. HAS AN US BEFORE Procedures PRO UPPER GI ENDOSCOPY, DIAGNOSTIC PRO UPPER GI ENDOSCOPY, BIOPSY PRO UP GI ENDOSCOPY, REMV TUMOR, SNARE PRO ANESTH, UGI ENDOSCOPY NOS EGD, UPPER GI ENDOSCOPY Referral ID Status Reason Start Date Expiration Date Visits Re quested Visits Authorized [id number] 1 1 Encounter Details Date Type Department Care Team (Late st Contact Info) Description 09/26/2020 2:30 PM EDT - 09/26/2020 3:00 PM EDT Surgery [place] [address] Braulio Bailey MD [facility] [place] [address] EGD, UPPER GI ENDOSCOPY (WRVU 2.09) Social History Tobacco Use Types Packs/Day Years [...] Sign Reading Time Taken Comments Blood Pressure 117/74 09/26/2020 3:00 PM EDT Pulse 98 09/26/2020 2:49 PM EDT Temperature 36.4 ??C (97.5 ??F) 09/26/2020 1:20 PM ED T Respiratory Rate 16 09/26/2020 3:00 PM EDT Oxygen Saturation 92% 09/26/2020 3:00 PM EDT Inhaled Oxygen Concentration - - Weight 61.7 kg (136 lb) 09/26/2020 1:20 PM EDT Height 154.9 cm (5' 1) 09/26/2020 1:20 PM EDT Body Mass Index 25.7 09/26/2020 1:20 PM EDT documented in this encounter Discharge Instructions * Discharge Instructions* Jaida Jain RN - 09/26/2020 2:50 PM EDT Upper GI Endoscopy: What to [...] home? Activity Rest when you feel tired. ?? You can do your normal activities when it feels okay to do so. Diet ?? Follow your doctor's directions for eating. ?? Unless your doctor has told you not to, drink plenty of fluids. This helps to replace the fluidsthat were lost during the prep. ?? Do not drink alcohol. Medicines ?? Your doctor will tell you if and when you can restart your medicines. He or she will also give you instructions about taking any new medicines. ?? If you take blood thinners, such as warfarin (Coumadin), clopidogrel (Plavix), or aspirin, be sure to talk to your doctor. He or she will tell you if and when to start taking those medicines again. Make sure that you understand exactly what your doctor wants you to do. ?? If polyps were removed or a biopsy was done during the test, your doctor may tell you not to take aspirin or other anti-inflammatory medicines for a few days. These include ibuprofen (Advil, Motrin) and naproxen (Aleve). ?? If you have a sore throat the day after the procedure, use an hqbn-[id number]-[id number] spray to numb your throat. Sucking on throat lozenges and gargling with warm salt water may also help relieve your symptoms. Other instructions ?? For your safety, do not drive or operate machinery until the medicine wears off and you can think clearly. Your doctor may tell you not to drive or operate machinery until the day after your test. ?? Do not sign legal documents or make major decisions until the medicine wears off and you can think clearly. The anesthesia can make it hard for you to fully understand what you are agreeing to. Additional Information for Sedation Patients For patients who received sedation: ?? You may have received medications before and/or during your procedure which effects your judgement and reaction time. ?? Do not drive, operate machinery, drink alcoholic beverages or make important decisions for 24 hours. ?? Be careful on stairs as you may be unsteady on your feet. ?? You may eat a regular diet as tolerated. ?? Do not smoke if you are alone. ?? IV site: Slight redness or tenderness is normal, you can use a warm compress if you would like. If tenderness and/or redness increase or if foul drainage occurs, please contact your Doctor. Please call [phone] before 8pm Mon-Fri with problems, questions or concerns. If you call after 8pm or on weekends, call the Hospital at [phone] and ask to speak to the Emergency Communications Officer rodent control worker and the rail tractor operator will contact that person for you. When should you call for help? Call [phone] anytime you think you may need emergency care. For example, call if: ?? You passed out (lost consciousness). ?? You pass maroon or bloody stools. ?? You have trouble breathing. Call your doctor now or seek immediate medical care if: ?? You have pain that does not get better after you take pain medicine. ?? You are sick to your stomach or cannot drink fluids. ?? You have new or worse belly pain. ?? You have blood in your stools. ?? You have a fever. ?? You cannot pass stools or gas. Watch closely for changes in your health, and be sure to contact your doctor if you have any problems. Where can you learn more? [facility]- View your After Visit Summary and more online at [email or web address] If you would like to provide feedback about your hospital experience, please call the Office of Patient and Family Relations at . If you have received this After Visit Summary in error, please immediately return it in person to the department, or notify the - Privacy Office by calling toll free at between the hours of 8AM and 5PM to arrange for our retrieval of the documents at no cost to you. Content Version: 12.2 ?? [id number] [employer]. Care instructions adapted under license by [facility]. If you have questions about a medical condition or this instruction, always ask your healthcare professional. [employer] disclaims any warranty or liability for your use of this information. documented in this encounter Medications at Time of Discharge Medication Sig Dispensed Refills Start Date End Date lisinopriL (Zestril) 10 mg tablet Take 1 tablet by mouth once a day for kidney protection 06/06/2009 Victoza 2-Jl 0.6 mg/0.1 mL (18 mg/3 mL) Pen Injector Inject 1.8 mg as directed. 05/02/2020 fluticasone propionate (FLONASE) 50 mcg/actuation [place], Suspension 1 spray daily. pramipexole (MIRAPEX) 0.125 [...] 100 mg capsule Take by mouth. 02/24/2009 Byetta 10 mcg/dose(250 mcg/mL) 2.4 mL Pen Injector 09/22/2019 06/01/19 lisinopril (PRINIVIL;ZESTRIL) 20 mg Tablet Take 20 mg by mouth daily. 02/05/2019 06/06/2022 glipiZIDE (GLUCOTROL XL) 5 mg Tablet Extended Rel 24 hr 07/28/2018 lactulose (CHRONULAC) 20 gram/30 mL Solution Take 15 mLs by mouth 2 times daily. 1000 mL 3 09/10/2018 06/06/2022 rifAXIMin (XIFAXIN) 550 mg Tablet Take 1 tablet by mouth 2 times daily. 60 tablet 5 02/22/2017 06/06/2022 red yeast rice 600 mg Tab Take 600 mg by mouth 2 times daily. 08/08/2023 documented as of this encounter H&P Notes * Braulio Bailey MD - 09/26/2020 2:30 PM EDT Procedure: egd Indication: EV screening History of Present Illness: Milka Corbett is a 80 y.o. woman with cirrhosis here for ev screening Patient Active Problem List Diagnosis Code ??? Bladder cancer C67.9 ??? S/P hysterectomy Z90.710 ??? Vaginal lesion N89.8 ??? Mixed incontinence N39.46 ??? NAFLD (nonalcoholic fatty liver disease) K76.0 ??? Hepatic cirrhosis K74.60 Medications: Reviewed in EDH Allergies Allergen Reactions ??? Codeine Phosphate Rash and Other (See Comments) Causes anxiety ??? Erythromycin Base Nausea And Vomiting ??? Meperidine Hcl Other (See Comments) confusion Social History/Family History: Reviewed in EDH. No changes Exam: Patient Vitals for the past 24 hrs: Temp Pulse Resp BP SpO2 O2 Flow Rate (L/min) O2 Device 09/26/20 1320 36.4 ??C (97.5 ??F) 88 18 116/54 97 % -- RA 09/26/20 1415 -- 93 23 122/59 95 % 3 L/min NC 09/26/20 1420 -- 90 25 -- 97 % 3 L/min NC 09/26/20 1425 -- 97 22 155/57 94 % 3 L/min NC Axox3, nad Anicteric, MMM CTAB RRR, no m/r/g abd soft nt nd +bs Assessment and Plan: Proceed with EGD: ASA Grade: ASA 3 - Patient with moderate systemic disease with functional limitations Mallampati score:I (soft palate, uvula, fauces, tonsillar pillars visible) Sedation plan: Moderate Conscious sedation Risks and benefits of the procedure were discussed with the patient. Consent has been signed. Braulio Bailey MD documented in this encounter Miscellaneous Notes * Op Note - Braulio Bailey MD - 09/26/2020 2:33 PM EDT Operative Note Patient Name: Milka Corbett : [id number] MR#: [id number] Case Date: 09/26/2020 Surgeon: Surgeon(s) and Role: * Braulio Bailey MD - Primary Procedure(s): EGD, UPPER GI ENDOSCOPY Please see Provation report for details. documented in this encounter Plan of Treatment Upcoming Encounters Date Type Department Care Team (Late st Contact Info) Description 02/06/2024 11:30 AM EDT Appointment [place] [address] Molly Cui MASTER PRINTER [facility] [place] [address] 02/06/2024 12:15 PM EDT Laboratory Appointment Lab [place] [address] 02/06/2024 1:30 PM EDT Office [place] [address] Molly Cui MASTER PRINTER [facility] [place] [address] documented as of this encounter Procedures Procedure Name Priority Date/Time Associated Diagnosis Comments EGD, UPPER GI ENDOSCOPY (WRVU 2.09) 09/26/2020 2:12 PM EDT Hepatic cirrhosis, unspecified hepatic cirrhosis type, unspecified whether ascites present UPPER GI ENDOSCOPY Routine 09/26/2020 1: 55 PM EDT POCT GLUCOSE Routine 09/26/2020 1:42 PM EDT documented in this encounter Results * UPPER GI ENDOSCOPY (09/26/2020 1:55 PM EDT) [facility] UPPER GI ENDOSCOPY [facility] Endoscopy Procedure Date: 09/26/2020 1:55 PM ? Patient Name: Milka Corbett ? Date of : 1940 ? Age: 80 ? Order #: [id number] ? Instrument Name: [id number] LOANER ? Procedure: ? Upper GI endoscopy Indications: ? Esophageal varices, Follow-up of ? esophageal varices Providers: ? Daniel Ness Jeffrey M. ? Leo Perez MD: ?Sophia Mcarthur MD Medicines: ? Midazolam 2 mg IV, Fentanyl 75 ? micrograms IV Complications: ? No immediate complications. Procedure: ? Pre-Anesthesia Assessment: ? - Prior to the procedure, a History ? and Physical was performed, and ? patient medications and allergies ? were reviewed. The patient is ? competent. The risks and benefits of ? the procedure and the sedation ? options and risks were discussed with ? the patient. All questions were ? answered and informed consent was ? obtained. Patient identification and ? proposed procedure were verified by ? the physician in the pre-procedure ? area. Mental Status Examination: ? alert and oriented. Airway ? Examination: normal oropharyngeal ? airway and neck mobility. Respiratory ? Examination: clear to auscultation. ? CV Examination: normal. Prophylactic ? Antibiotics: The patient does not ? require prophylactic antibiotics. ? Prior Anticoagulants: The patient has ? taken no previous anticoagulant or ? antiplatelet agents. ASA Grade ? Assessment: II - A patient with mild ? systemic disease. After reviewing the ? risks and benefits, the patient was ? deemed in satisfactory condition to ? undergo the procedure. The anesthesia ? plan was to use moderate sedation / ? analgesia (conscious sedation). ? Immediately prior to administration ? of medications, the patient was ? re-assessed for adequacy to receive ? sedatives. The heart rate, ? respiratory rate, oxygen saturations, ? blood pressure, adequacy of pulmonary ? ventilation, and response to care ? were monitored throughout the ? procedure. The physical status of the ? patient was re-assessed after the ? procedure. ? The procedure, indications, benefits, ? risks and alternatives were explained ? to the patient. Specifically ? discussed were potential ? complications including, but not ? limited to, bleeding, perforation, ? infection, missing a cancer, and ? adverse medication reactions. The was ? introduced through the mouth, and ? advanced to the second part of ? duodenum. The patient tolerated the ? procedure well. The patient tolerated ? the procedure well. ? Findings: ? Small (< 5 mm) varices were found in the distal ? esophagus. ? Patchy minimal inflammation characterized by ? congestion (edema) and erythema was found in the ? gastric antrum. ? The examined duodenum was normal. ? Moderate Sedation: ? Not applicable - See Anesthesia documentation Impression: ?- Small (< 5 mm) esophageal varices. ? - Mild antral gastritis. ? - Normal examined duodenum. ? - No specimens collected. Recommendation: ?- Discharge patient to home. ? - Resume previous diet. ? - Return to liver clinic. ? - Repeat upper endoscopy in 1 year ? for surveillance. ? Procedure Code(s): ?? --- Professional --- ? 37896, Esophagogastroduod enoscopy, ? flexible, transoral; diagnostic, ? including collection of specimen(s) ? by brushing or washing, when ? performed (separate procedure) Diagnosis Code(s): ?? --- Professional --- ? K29.70, Gastritis, unspecified, ? without bleeding ? 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 --- Technical --- ? K29.70, Gastritis, unspecified, ? without bleeding ? 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 bleeding CPT copyright 2019 [employer]. All rights reserved. The codes documented in this report are preliminary and upon comfort station attendant review may be revised to meet current compliance requirements. Attending Participation: ? I personally performed the entire procedure. ? Braulio Bailey, 09/26/2020 2:38:44 PM Number of Addenda: 0 Note Initiated On: 09/26/2020 1:55 PM PROVATION 09/26/2020 1:55 PM EDT Salome Mcarthur MASTER PRINTER [facility] [employer] PROVATION * POCT Glucose (09/26/2020 1:42 PM EDT) Glucose, POC 88 65 - 199 mg/dL [facility] Comment: Supplemental ranges: <140 mg/dL before meals <180 mg/dL all other times of the day Blood 09/26/2020 1:42 PM EDT 09/25/2020 12:00 PM EDT Jean Claude Chacon MD POINT OF CARE TEST O RDERABLES Performing Organization Address City/[facility]/ZIP Co de Phone Number [facility] [place] [address] documented in this encounter Visit Diagnoses Diagnosis Hepatic cirrhosis- Primary Cirrhosis of liver without mention of alcohol Hepatic cirrhosis, unspecified hepatic cirrhosis type, unspecified whether ascites present documented in this encounter Admitting Diagnoses Diagnosis Hepatic cirrhosis Cirrhosis of liver without mention of alcohol documented in this encounter Administered Medications Inactive Administered Medications - up to 3 most recent administrations Medication Order MAR Action Action Date Dose Rate Site fentaNYL (pf) (50 mcg/mL) multi-dose injection ONCE PRN, Starting on Sat09/26/20 at 1424, Until Sat09/26/20 at 1753, Intra-Operative (Intra-Procedure), Routine Given 09/26/2020 2:27 PM EDT 25 mcg Given 09/26/2020 2:24 PM EDT 50 mcg midazolam (pf) (Versed) (1 mg/mL) multi-dose injection ONCE PRN, Starting on Sat09/26/20 at 1424, Until Sat09/26/20 at 1753, Intra-Operative (Intra-Procedure), Routine Given 09/26/2020 2:27 PM EDT 1 mg Given 09/26/2020 2:24 PM EDT 1 mg documented in this encounter Active and Recently Administered Medications Times are shown in EDT. PRN Medication Order 09/24/2020 09/25/2020 09/26/2020 fentaNYL (pf) (50 mcg/mL) multi-dose injection (CANCELED) ONCE PRN, Starting on Sat09/26/20 at 1424, Until Sat09/26/20 at 1753, Intra-Operative (Intra-Procedure), Routine 1424 (Given - Provid er: Beatriz Hammond RN)1427 (Given - Provider: Beatriz Hammond RN) midazolam (pf) (Versed) (1 mg/mL) multi-dose injection (CANCELED) ONCE PRN, Starting on Sat09/26/20 at 1424, Until Sat09/26/20 at 1753, Intra-Operative (Intra-Procedure), Routine 1424 (Given - Provid er: Beatriz Hammond RN)1427 (Given - Provider: Beatriz Hammond RN) documented in this encounter Care Teams Vehicle Assembler Relationship Specialty Start Date End Date Salome Mcarthur, MASTER PRINTER [address] [place] [address] PCP - General Family Medicine 05/30/15 documented as of this encounter
--- OUTSIDE RECORDS SUMMARY | 2023-12-02 18:34 | XMS_ITS | Encounter Summary ---
Author Organization [facility] Address [facility] [place] [address] Care Team Providers Care Family Sociologist Name Role Phone Sal[place] Mcarthur APRN Primary Care Provider [phone] Encounter Details Date Type Department Care Team (Latest Contact Info) Description 12/05/2022 11:03 AM EDT - 12/05/2022 11:59 PM EDT Hospital [place] [phone] Molly Wallis REFINERY PROCESS ENGINEER [facility] [place] [address] Hepatic cirrhosis, unspecified hepatic cirrhosis type, unspecified [...] directed. 05/02/2020 fluticasone propionate (FLONASE) 50 mcg/actuation [place], Suspension 1 spray daily. pramipexole (MIRAPEX) 0.125 [...] daily. 08/08/2023 documented as of this encounter Plan of Treatment Upcoming Encounters Date Type Department Care Team (Late st Contact Info) Description 02/06/2024 11:30 AM EDT [place] [address] Molly Wallis, [facility] [place] [address] 02/06/2024 12:15 PM EDT Laboratory Appointment Lab 3L [facility] [place] [phone] 02/06/2024 1:30 PM EDT Office [place] [phone] Molly Wallis, [facility] [place] [address] documented as of this encounter Procedures Procedure Name Priority Date/Time Associated Diagnosis Comments US ABDOMEN LIMITED HEPATOLOGY PROTOCOL Routine 12/05/2022 11:40 AM EDT Hepatic cirrhosis, unspecified hepatic cirrhosis type, unspecified whether ascites present documented in this encounter Results * US Abdomen Limited Hepatology Protocol (12/05/2022 [...] splenomegaly, volume 660 mL. 5. No ascites. Thank you for letting us participate in the care of this patient. If you are a health care provider and have any questions regarding this report, please contact the number above. For patients who have questions, please contact the health direct care staffer that requested your imaging first. ?Avila Keith, Staff Physician Electronically Signed Final Report ?? 12/05/2022 11:56 am Narrative 12/05/2022 11:57 AM EDT Abdominal ? (Signed Final 12/05/2022 11:56 am) PATIENT INFO: ID #: ? [id number] ?: ??[birth year] (82 yrs)(F) Name: ? MILKA MENDIETA ?Visit Date: 12/05/2022 11:36 am PERFORMED BY: Attending: ?Avila Keith MD Performed By: ? Sanjeev Marshall RDMS Referred By: ?MOLLY WALLIS Secondary Phy.: ?? MOLLY WALLIS REFINERY PROCESS ENGINEER Location: ? [place] [facility] - Abdominal ?[id number] Limited Survey Single Organ or Quadrant - [id number] INDICATIONS: cirrhosis, screen for hcc ------ LIVER: [...] ?Date ?Location ?Description ?L ?AP ?TV (cm) ?11/29/21 ? Left Lobe ? Hyperechoic, ?0.5 ?0.4 ? 0.0 ?Avascular ?2// ? Left Lobe ? Hyperechoic, ?0.5 ?0.5 ? 0.5 ?Avascular ?6// ? Lft lobe ?Echogenic ? 0.6 ?0.4 [...] 12/05/2022 11:56 am) PATIENT INFO: ID #: [id number] : [birth year] (82 yrs)(F) Name: MILKA MENDIETA Visit Date: 12/05/2022 11:36 am PERFORMED BY: Attending: Avila Keith MD Performed By: Sanjeev Marshall RDMS Referred By: MOLLY WALLIS Secondary Phy.: MOLLY WALLIS APRN Location: [place] SERVICE[facility]S) [facility] - Hepatology Protocol - Abdominal [id number] Limited Survey Single Organ or Quadrant - [id number] INDICATIONS: cirrhosis, screen for hcc ------ LIVER: [...] ascites. Electronically signed by: Avila Keith MD, [facility] ([phone]), at 12/05/2022 11:48 AM Thank you for letting us participate in the care of this patient. If you are a health care provider and have any questions regarding this report, please contact the number above. For patients who have questions, please contact the health direct care staffer that requested your imaging first. Avila Keith, Staff Physician Electronically Signed Final Report 12/05/2022 11:56 am [place] [facility] ORDER[facility]ES documented in this encounter Visit Diagnoses Diagnosis Hepatic cirrhosis, unspecified hepatic cirrhosis type, unspecified whether ascites present documented in this encounter Care Teams Family Sociologist Relationship Specialty Start Date End Date [place] Mcarthur APRN [address] [place] [address] PCP - General Family Medicine 05/30/15 documented as of this encounter
--- OUTSIDE RECORDS SUMMARY | 2023-12-02 18:34 | XMS_ITS | Encounter Summary ---
Author Organization [facility] Address [facility] [place] [address] Care Team Providers Care Bpm Analyst Name Role Phone Salome Mcarthur APRN Primary Care Provider [phone] Encounter Details Date Type Department Care Team (Late st Contact Info) Description 01/03/2022 Telephone Gastroenterology at [facility] [place] [phone] KyleJuly Social History Tobacco Use Types Packs/Day Years [...] encounter Miscellaneous Notes * Telephone Encounter - Kylejuly - 01/03/2022 9:03 AM EDT Milka Corbett [id number] Diagnosis/Indication: cirrhosis with varices, reassess. EGD ordered 05/2021 but not scheduled yet, new order with higher urgency placed. Please review patient chart to confirm if previous Endoscopy procedure was performed within system. If yes, take note of Anesthesia type used. If previous procedure found, and with MAC/propofol Anesthesia support was used, schedule this procedure with Anesthesia and skip the Anesthesia portion of questions. If not performed within system, not performed at all, or performed with IVCS, ask Anesthesia questions. SCHEDULING QUESTIONS (ask all patient these questions) 1. Have you ever had a/an Upper Endoscopy before? Yes: Date 09/26/20 If yes, did you have any problems with the procedure (such as waking up during the procedure, pain or difficulties afterwards, etc.)? No What type of sedation was used: IV Conscious Sedation 2. Do you take any blood thinners or have you been diagnosed with a bleeding disorder that increases your risk of bleeding with procedures? No 3. Do you have a Pacemaker or Defibrillator device? If yes, send pool message to Cardiology with patient information and date or procedure. No 4. Are you a diabetic? If yes, call PCP/managing provider to discuss use of prep and any questions or concerns related to. Yes: Controlled by diet or medication? Both 5. Do you take any iron supplements or vitamins that contain iron? No 6. Do you have a preference regarding the gender of your provider? No ANESTHESIA QUESTIONS (YES to any question, please book with Anesthesia support) 7. Have you ever been diagnosed with any of the following: Pulmonary Hypertension, Atrial Fibrillation (A-Fib) and/or Congential Heart Disease? No 8. Have you ever had an allergic or adverse reaction to Fentanyl or Versed? No 9. Have you had a problem with sedation or anesthesia? (Waking up during procedure, extreme confusion after, etc.) No 10. Do you have a diagnosis of Obstructive Sleep Apnea? No 11. Do you use a c-pap machine? Neither 12. Do you use an oxygen tank at home? No 13. Do you use a rescue inhaler more than twice per day? (COPD, severe asthma) No 14. Do you experience breathing problems when you lay flat for a period of time? No 15. Do you take prescription narcotic pain medications, including suboxone or methodone? No SCHEDULING CONFIRMATIONS: Please note any and all parts of your conversation with the patient here. 16. We offer all new patients an opportunity to have an appointment with one of our associate care providers to learn more about your upcoming procedure, ask questions and get answers. These appointments are offered via telehealth. Would you be interested in scheduling this appointment? (Only ask if NEW referral patient; skip this question if [facility] GI provider ordered the procedure.) No 17. Is there any other information or concerns you would like to us to share with your care team inrelation to your upcoming scheduled procedure? No 18. You must have a responsible constitution party who will drive you to your procedure, stay on campus for the entire duration of your procedure, and drive you home from your procedure. Who will likely be your truck driver flatbed for the procedure? *Please Verify the height and weight, and adjust if height and/or weight have changed* Estimated body mass index is 25.69 kg/m?? as calculated from the following: Height as of 11/29/21: 154.9 cm (5' 0.98). Weight as of 11/29/21: 61.6 kg (135 lb 14.4 oz). Age:81 y.o. documented in this encounter Plan of Treatment Upcoming Encounters Date Type Department Care Team (Late st Contact Info) Description 02/06/2024 11:30 AM EDT Appointment [place] [phone] Molly Cui, [facility] [place] [address] 02/06/2024 12:15 PM EDT Laboratory Appointment Lab [address] [phone] 02/06/2024 1:30 PM EDT Office [place] [phone] Molly Cui, [facility] [place] [address] documented as of this encounter Visit Diagnoses Not on filedocumented in this encounter Care Teams Bpm Analyst Relationship Specialty Start Date End Date Salome Mcarthur APRN [address] [place] [address] PCP - General Family Medicine 05/30/15 documented as of this encounter
--- OUTSIDE RECORDS SUMMARY | 2023-12-02 18:34 | XMS_ITS | Encounter Summary ---
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 Referral ID Status Reason Start Date Expiration Date Visits Re quested Visits Authorized [id number] 1 1 Encounter Details Date Type Department Care Team (Late st Contact Info) Description 01/23/2023 11:15 AM EDT - 01/23/2023 11:45 AM EDT [place] [address] Juliette Chauhan MD [facility] [place] [address] EGD, UPPER GI ENDOSCOPY (WRVU 2.09) Social [...] on file documented as of this encounter Discharge Instructions * Discharge Instructions* [...] the day after the procedure, use an caql-htt-lxmunoo spray to numb your throat. Sucking on [...] occurs, please contact your Doctor. Please call [phone] before 8pm Mon-Fri with problems, questions or concerns. If you call after 8pm or on weekends, call the Hospital at [phone] and ask to speak to the Biology Tutor money room teller and the tool grinder operator external will contact that person for you. When should you call for help? Call [phone] anytime you think you may need emergency [...] any problems. Where can you learn more? [facility] View your After Visit Summary and more online at [email or web address] If you would like to provide feedback about your hospital experience, please call the Office of Patient and Family Relations at . If you have received this After Visit Summary in error, please immediately return it in person to the department, or notify the [facility] Privacy Office by calling toll free at between the hours of 8AM and 5PM to arrange for our retrieval of the documents at no cost to you. Content Version: 12.2 ?? [id number] Jimmy Fairly. Care instructions adapted under license by [facility]. If you have questions about a medical condition or this instruction, always ask your healthcare professional. Jimmy Fairly disclaims any warranty or liability for your [...] directed. 05/02/2020 fluticasone propionate (FLONASE) 50 mcg/actuation [place], Suspension 1 spray daily. pramipexole (MIRAPEX) 0.125 [...] 02/06/2024 11:30 AM EDT [place] [address] Molly Cui APRN [facility] [place] [address] 02/06/2024 12:15 PM EDT Laboratory Appointment Lab [address] [place] [address] 02/06/2024 1:30 PM EDT Office [place] [address] Molly Cui APRN [facility] [place] [place] [address] documented as of this encounter Procedures Procedure Name Priority Date/Time Associated Diagnosis Comments Upper GI Endoscopy, Diagnostic (34487) 01/23/2023 12:23 PM EDT Hepatic cirrhosis, unspecified hepatic cirrhosis type, unspecified whether ascites present UPPER GI ENDOSCOPY Routine 01/23/2023 12 :11 PM EDT documented in this encounter Results * UPPER GI ENDOSCOPY (01/23/2023 12:11 PM EDT) UPPER GI ENDOSCOPY [facility] Endoscopy Procedure Date: 01/23/2023 12:11 PM ? Patient Name: Milka Corbett ? Date of : 1940 ? Age: 82 ? Order #: [id number] ? Instrument Name: [id number] ? Procedure: ? Upper GI endoscopy Indications: ? Follow-up of esophageal varices Providers: ? Juliette Chauhan MD, Yaw Garcia ? , TRISHA, Kalpana Perez MD: ?Sophia Mcarthur MD Medicines: [...] referring physician. ? Consider starting non-selective ? beta-reva ? Attending Participation: ? I personally performed the entire procedure. ? Juliette Chauhan MD Juliette Chauhan MD 01/23/2023 12:50:06 PM This report has been signed electronically. Number of Addenda: 0 Note Initiated On: 01/23/2023 12:11 PM PROVATION 01/23/2023 12:1 1 PM EDT Salome Mcarthur APRN GENERAL SURGICAL OR DERABLES [employer]OVATION documented in this encounter Visit Diagnoses Diagnosis Hepatic cirrhosis, unspecified hepatic cirrhosis type, unspecified whether ascites present documented in this encounter Administered Medications Inactive Administered Medications - up to 3 most recent administrations Medication Order MAR Action Action Date Dose Rate Site fentaNYL (pf) (50 mcg/mL) multi-dose injection PRN, Starting on Sat01/23/23 at 1124, Until Sat01/23/23 at 1549, Intra-Operative (Intra-Procedure), Routine Given 01/23/2023 11:28 AM EDT 25 mcg Given 01/23/2023 11:25 AM EDT 25 mcg lactated ringers infusion 100 mL/hr, Intravenous, CONTINUOUS, Starting on Sat01/23/23 at 1230, Until Sat01/23/23 at 1549, Endoscopy (Day of Procedure) New Bag 01/23/2023 12:20 PM EDT 100 mL/hr 100 mL/hr midazolam (pf) (Versed) (1 mg/mL) multi-dose injection PRN, Starting on Sat01/23/23 at 1224, Until Sat01/23/23 at 1549, Intra-Operative (Intra-Procedure), Routine Given 01/23/2023 12:27 PM EDT 0.5 mg Given 01/23/2023 12:24 PM EDT 0.5 mg documented in this encounter Active and Recently Administered Medications Times are shown in EDT. Continuous Medication Order 01/21/2023 01/22/2023 01/23/2023 lactated ringers infusion 100 mL/hr, Intravenous, CONTINUOUS, Starting on Sat01/23/23 at 1230, Until Sat01/23/23 at 1549, Endoscopy (Day of Procedure) 1220 (New Bag - Prov ider: Jessika Anand, TRISHA) PRN Medication Order 01/21/2023 01/22/2023 01/23/2023 fentaNYL (pf) (50 mcg/mL) multi-dose injection (CANCELED) PRN, Starting on Sat01/23/23 at 1124, Until Sat01/23/23 at 1549, Intra-Operative (Intra-Procedure), Routine 1124 (Canceled Entry - Provider: Kalpana Swan RN)1125 (Given - Provider: Kalpana Swan, RN)1128 (Given - Provider: Kalpana Swan RN) midazolam (pf) (Versed) (1 mg/mL) multi-dose injection (CANCELED) PRN, Starting on Sat01/23/23 at 1224, Until Sat01/23/23 at 1549, Intra-Operative (Intra-Procedure), Routine 1224 (Given - Provid er: Kalpana Swan, TRISHA)1227 (Given - Provider: Kalpana Swan, TRISHA) documented in this encounter Care Teams Apprentice Painter Neckties Relationship Specialty Start Date End Date Salome Mcarthur APRN [address] [place] [address] PCP - General Family Medicine 05/30/15 documented as of this encounter
--- OUTSIDE RECORDS SUMMARY | 2023-12-02 18:34 | XMS_ITS | Encounter Summary ---
Author Organization [facility] Address [facility] [place] [address] Care Team Providers Care Shade Hanger Name Role Phone Salome Mcarthur APRN Primary Care Provider [phone] Encounter Details Date Type Department Care Team (Latest Contact Info) Description 06/06/2022 11:07 AM EST - 06/06/2022 11:59 PM [facility] Hospital [place] [phone] Molly Wallis CONSTRUCTION INSPECTOR [facility] [place] [address] Hepatic cirrhosis, unspecified hepatic cirrhosis type, unspecified [...] directed. 05/02/2020 fluticasone propionate (FLONASE) 50 mcg/actuation [place], Suspension 1 spray daily. pramipexole (MIRAPEX) 0.125 [...] 02/06/2024 11:30 AM EDT [place] [address] Molly Wallis, [facility] [place] [address] 02/06/2024 12:15 PM EDT Laboratory Appointment Lab [address] [address] 02/06/2024 1:30 PM EDT Office [place] [address] Molly Wallis, [facility] [place] [address] documented as of this encounter Procedures Procedure Name Priority Date/Time Associated Diagnosis Comments US ABDOMEN LIMITED HEPATOLOGY PROTOCOL Routine 06/06/2022 11:35 AM EST Hepatic cirrhosis, unspecified hepatic cirrhosis type, unspecified whether ascites present documented in this encounter Results * US Abdomen Limited Hepatology Protocol (06/06/2022 11:35 AM EST) Anatomical Region Laterality Modality Abdomen Ultrasound 06/06/2022 11:2 0 AM EST Impressions 06/06/2022 11:55 AM EST 1. Hepatomegaly with diffusely coarsened parenchyma and [...] cm. Similar to prior. 4. No ascites. Thank you for letting us participate in the care of this patient. If you are a health care provider and have any questions regarding this report, please contact the number above. For patients who have questions, please contact the health special needs caregiver that requested your imaging first. ? Avila Keith, Staff Physician Electronically Signed Final Report ?? 06/06/2022 11:54 am Narrative 06/06/2022 11:55 AM EST Abdominal ? (Signed Final 06/06/2022 11:54 am) PATIENT INFO: ID #: ? [id number] ?: ??[birth year] (81 yrs)(F) Name: ? MILKA MENDIETA ?Visit Date: 06/06/2022 11:20 am PERFORMED BY: Attending: ?Avila Keith MD Performed By: ? Sosa Joshi RDMS Referred By: ?MOLLY WALLIS Secondary Phy.: ?? MOLLY WALLIS CONSTRUCTION INSPECTOR Location: ? [place] [facility] - Hepatology Protocol - Abdominal ?92804 Limited Survey Single Organ or Quadrant - [id number] INDICATIONS: cirrhosis, screen for hcc ------ LIVER: ------ Right Lobe Length: ?? 22.1 ?? cm Echogenicity/Echotexture: ?? enlarged coarse parenchyma with ? capsular nodularity -------- Lesions: -------- # ?Date ?Location ?Description ?L ?AP ?TV (cm) ?06/06/22 ?Left lobe, ?Echogenic ? 0.5 ?0.5 ? 0.5 ?border of ? lesion ?caudate ?lobe ?11/29/21 ? Left Lobe ? Hyperechoic, ?0.5 ?0.4 ? 0.0 ?[facility] ?06/01/21 ? Left Lobe ? Hyperechoic, ?0.5 ?0.5 ? 0.5 ?[facility] # ?Date ?Location ?Description ?L ?AP ?TV (cm) ?09/26/20 ? Posterior ? Echogenic ? 0.6 ?0.4 ? 0.7 ?Left Lobe GALLBLADDER: Cholelithiasis: ?Surgically absent BILIARY TRACT: Intrahepatic Ducts: ?? Normal Extrahepatic Ducts: ?? Normal Common Duct: ?Visualized Common Duct Size: ? 8.4 ? mm ------- SPLEEN: ------- Size (cm) ?L: ??15.1 Comment: ?Enlarged FLUID COLLECTIONS: Ascites not present on 4 quadrant evaluation. Procedure Note Avila Keith MD - 06/06/2022 Abdominal (Signed Final 06/06/2022 11:54 am) PATIENT INFO: ID #: [id number] : [birth year] (81 yrs)(F) Name: MILKA MENDIETA Visit Date: 06/06/2022 11:20 am PERFORMED BY: Attending: Avila Keith MD Performed By: Ssoa Joshi RDMS Referred By: MOLLY WALLIS Secondary Phy.: MOLLY WALLIS APRN Location: [place] [facility]ICE[facility]S) [facility] - Hepatology Protocol - Abdominal 65450 Limited Survey Single Organ or Quadrant - [id number] INDICATIONS: cirrhosis, screen for hcc ------ LIVER: ------ Right Lobe Length: 22.1 cm Echogenicity/Echotexture: enlarged coarse parenchyma with capsular nodularity -------- Lesions: -------- # Date Location Description L AP TV (cm) 06/06/22 Left lobe, Echogenic 0.5 0.5 0.5 border of lesion caudate lobe 11/29/21 Left Lobe Hyperechoic, 0.5 0.4 0.0 [facility] 06/01/21 Left Lobe Hyperechoic, 0.5 0.5 0.5 [facility] # Date Location Description L AP TV (cm) 09/26/20 Posterior Echogenic 0.6 0.4 0.7 Left Lobe GALLBLADDER: Cholelithiasis: Surgically absent BILIARY TRACT: Intrahepatic Ducts: Normal Extrahepatic Ducts: Normal Common Duct: Visualized Common Duct Size: 8.4 mm ------- SPLEEN: ------- Size (cm) L: 15.1 Comment: Enlarged FLUID COLLECTIONS: Ascites not present on 4 quadrant evaluation. IMPRESSION 1. Hepatomegaly with diffusely coarsened parenchyma [...] cm. Similar to prior. 4. No ascites. Thank you for letting us participate in the care of this patient. If you are a health care provider and have any questions regarding this report, please contact the number above. For patients who have questions, please contact the health special needs caregiver that requested your imaging first. Avila Keith, Staff Physician Electronically Signed Final Report 06/06/2022 11:54 am Molly Wallis APRN IMG US GEN ORDERAB LES documented in this encounter Visit Diagnoses Diagnosis Hepatic cirrhosis, unspecified hepatic cirrhosis type, unspecified whether ascites present documented in this encounter Care Teams Shade Hanger Relationship Specialty Start Date End Date Salome Mcarthur APRN [address] [place] [address] PCP - General Family Medicine 05/30/15 documented as of this encounter
--- OUTSIDE RECORDS SUMMARY | 2023-12-02 18:34 | XMS_ITS | Encounter Summary ---
Author Organization [facility] Address [facility] [place] [address] Care Team Providers Care Cnc Service Engineer Name Role Phone Salome Mcarthur APRN Primary Care Provider [phone] Encounter Details Date Type Department Care Team (Latest Contact Info) Description 06/01/2021 10:00 AM EST Laboratory Appointment Lab [address] [place] [phone] Hepatic cirrhosis, unspecified hepatic cirrhosis type, unspecified [...] 02/06/2024 11:30 AM EDT [place] [phone] Molly Cui PROCESSING ASSOCIATE [facility] [place] [address] 02/06/2024 12:15 PM EDT Laboratory Appointment Lab [address] [place] [phone] 02/06/2024 1:30 PM EDT Office [place] [phone] Molly Cui APRN [facility] [place] [address] documented as of this encounter Procedures Procedure Name Priority Date/Time Associated Diagnosis Comments HEMOGRAM Routine 06/01/2021 10:31 AM EST Hepatic cirrhosis, unspecified hepatic cirrhosis type, unspecified whether ascites present DIFFERENTIAL, AUTOMATED Routine 06/01/2021 10:31 AM EST Hepatic cirrhosis, unspecified hepatic cirrhosis type, unspecified whether ascites present HC VENIPUNCTURE Routine 06/01/2021 10:31 AM EST Hepatic cirrhosis, unspecified hepatic cirrhosis type, unspecified whether ascites present HC CBC,PLT & AUTO DIFF Routine 10:31 AM EST Hepatic cirrhosis, unspecified hepatic cirrhosis type, unspecified whether ascites present COMPREHENSIVE METABOLIC PANEL Routine 06/01/2021 10:31 AM EST Hepatic cirrhosis, unspecified hepatic cirrhosis type, unspecified whether ascites present documented in this encounter Results * Differential, Automated (06/01/2021 10:31 AM EST) Neutrophil % 61.2 % [facility] Neutrophil Absolute 4.16 1.70 - 6.10 x10(3)/[facility] Lymph % 23.8 % [facility] Lymphocytes Abs 1.6 0.9 - 3.2 x10(3)/[facility] Monocyte % 12.5 % [facility] Monocyte Abs 0.8 0.3 - 0.9 x10(3)/[facility] Eos % 1.8 % [facility] Eosinophils Abs 0.1 0.0 - 0.4 x10(3)/[facility] Basophil % 0.4 % [facility] Baso Absolute 0.0 0.0 - 0.1 x10(3)/[facility] Immature Gran % 0.30 % [facility] Comment: Immature granulocytes(IG's)percentage and absolute count will include metamyelocytes, myelocytes, and promyelocytes. Blood smears from CBCs yielding IG's will be scanned manually for concordance. If this scan disagrees with the automated IG or if promyelocytes are noted, a manual differential will be performed. Immature Gran Absolute 0.02 0.00 - 0.04 x10(3)/[facility] Blood 06/01/2021 10:3 1 AM EST 06/01/2021 10:41 AM EST Narrative Resulting Agency Comment Spec In Lab Molly Cui APRN HEMATOLOGY ORDERAB LES [facility] [place] [address] * (ABNORMAL) Hemogram (06/01/2021 10:31 AM EST) White Blood Cell 6.8 4.0 - 9.5 x10(3)/[facility] Red Blood Cell 4.20 4.00 - 5.21 x10(6)/[facility] Hemoglobin 12.8 11.7 - 15.5 g/dL [facility] Hematocrit 38.6 35.7 - 45.8 % [facility] Mean Cell Volume 91.9 82.6 - 94.4 fL [facility] Mean Cell Hemoglobin 30.5 27.1 - 32.0 pg [facility] Mean Cell Hemoglobin Concentration 33.2 31.7 - 35.0 g/dL [facility] Platelet 93(L) 145 - 357 x10(3)/[facility] RDW Standard Deviation 44.9 37.0 - 46.0 [facility] RDW coefficient of variation 13.2 11.5 - 14.1 % [facility] Mean Platelet Volume 11.9 7.6 - 12.9 fL [facility] NRBC% auto 0.0 % [facility] NRBC Absolute 0.000 0.000 - 0.000 x10(3)/mcL [facility] Blood 06/01/2021 10:3 1 AM EST 06/01/2021 10:41 AM EST Narrative Resulting Agency Comment Spec In Lab Mollyjuan a Cui PROCESSING ASSOCIATE HEMATOLOGY ORDERAB LES [facility] [place] [address] * (ABNORMAL) Comprehensive metabolic panel (non-fasting) (06/01/2021 10:31 AM EST) Glucose 187 65 - 199 mg/dL [facility] Comment:Diabetes: >=200 mg/d L plus symptoms Blood Urea Nitrogen 16 8 - 18 mg/dL [facility] Creatinine 0.61(L) 0.70 - 1.20 mg/dL [facility] Sodium 139 135 - 145 mmol/L [facility] Potassium 4.3 3.5 - 5.0 mmol/L [facility] Comment: Please note: ??Patients with WBC >100,000 may have falsely elevated Potassium levels. ??For accurate Potassium quantification in these patients send serum separator tube (gold top) for subsequent determinations. ??Contact the Clinical Chemistry Laboratory if there are any questions. Chloride 102 98 - 107 mmol/L [facility] Carbon Dioxide 25 22 - 31 mmol/L [facility] Anion Gap 12 5 - 15 mmol/L [facility] Calcium 10.0 8.5 - 10.5 mg/dL [facility] Protein, Total 6.8 6.1 - 8.0 g/dL [facility] Albumin 4.3 3.2 - 5.2 g/dL [facility] Aspartate Aminotransferase 45(H) 0 - 30 unit/L [facility] Alanine Aminotransferase 60(H) 0 - 30 unit/L [facility] Alkaline Phosphatase 95 35 - 105 unit/L [facility] Bilirubin, Total 0.7 0.2 - 1.3 mg/dL [facility] Est Glomerular Filtration Rate 86 >=60 mL/min/1. 73 m?? [facility] Comment: This patient? s estimated [...] APRN CHEMISTRY ORDERABL ES Performing Organization Address [facility] Co de Phone Number [facility] [place] [address] * Prothrombin Time (06/01/2021 10:31 AM EST) Prothrombin Time 12.1 9.4 - 12.5 sec [facility] International Normalization Ratio 1.1 [facility] Comment: An INR <2.0 indicates [...] APRN HEMATOLOGY ORDERAB LES Performing Organization Address [facility]/ZIP Co de [place] [address] documented in this encounter Visit Diagnoses Diagnosis Hepatic cirrhosis, unspecified hepatic cirrhosis type, unspecified whether ascites present documented in this encounter Care Teams Cnc Service Engineer Relationship Specialty Start Date End Date Salome Mcarthur, PROCESSING ASSOCIATE [address] [place] [address] PCP - General Family Medicine 05/30/15 documented as of this encounter
--- OUTSIDE RECORDS SUMMARY | 2023-12-02 18:34 | XMS_ITS | Encounter Summary ---
Author Organization [facility] [place] [address] Care Team Providers Care Candle Wrapping Machine Operator Name Role Phone Salome Mcarthur APRN Primary Care Provider [phone] Encounter Details Date Type Department Care Team (Late st Contact Info) Description 01/08/2022 Telephone [place] [phone] Светлана Henry Social History Tobacco Use Types Packs/Day Years [...] encounter Miscellaneous Notes * Telephone Encounter - Светлана Henry - 01/08/2022 9:06 AM EDT Inbound/Outbound: Both Spoke to Patient/Left Message: LVM (pt called in, I was having phone issues) Notes: Case ready to schedule Return calls can be handled by: Any procedure non profit job titles documented in this encounter Plan of Treatment Upcoming Encounters Date Type Department Care Team (Late st Contact Info) Description 02/06/2024 11:30 AM EDT [place] [address] Molly Cui APRN [facility] [place] [address] 02/06/2024 12:15 PM EDT Laboratory Appointment Lab [address] [place] [phone] 02/06/2024 1:30 PM EDT Office [place] [phone] Molly Cui APRN [facility] [place] [address] documented as of this encounter Visit Diagnoses Not on filedocumented in this encounter Care Teams Candle Wrapping Machine Operator Relationship Specialty Start Date End Date Salome Mcarthur APRN [address] [place] [address] PCP - General Family Medicine 05/30/15 documented as of this encounter
--- OUTSIDE RECORDS SUMMARY | 2023-12-02 18:34 | XMS_ITS | Encounter Summary ---
Author Organization [facility] Address [facility] [place] [address] Care Team Providers Care Transfer Worker Name Role Phone Salome Mcarthur APRN Primary Care Provider [phone] Reason for Visit * Auth/Cert Specialty Diagnoses / Procedures Referred By Jose bermudez Referred To Contact Diagnoses cirrhosis with varices, reassess. EGD ordered 05/2021 but not scheduled yet, new order with higher urgency placed. Procedures PRO UPPER GI ENDOSCOPY, DIAGNOSTIC EGD, UPPER GI ENDOSCOPY Ml Ayala MD [facility] [place] [address] [facility] Referral ID Status Reason Start Date Expiration Date Visits Re quested Visits Authorized [id number] 1 1 Encounter Details Date Type Department Care Team (Late st Contact Info) Description 01/31/2022 11:30 AM EDT - 01/31/2022 12:00 PM EDT Surgery [place] [address] Leland Ramos MD [facility] [place] [address] EGD, UPPER GI ENDOSCOPY (WRVU 2.09) Social [...] Sign Reading Time Taken Comments Blood Pressure 130/71 01/31/2022 12:00 PM EDT Pulse 98 01/31/2022 10:42 AM EDT Temperature 36.1 ??C (96.9 ??F) 01/31/2022 10:42 AM E DT Respiratory Rate 18 01/31/2022 12:00 PM EDT Oxygen Saturation 91% 01/31/2022 12:00 PM EDT Inhaled Oxygen Concentration - - Weight - - Height - - Body Mass Index - - documented in this encounter Discharge Instructions * Discharge Instructions* Kita Sherman RN - 01/31/2022 1:25 PM EDT Upper GI Endoscopy: What to [...] the day after the procedure, use an [id number] spray to numb your throat. Sucking on [...] occurs, please contact your Doctor. Please call [phone] before 8pm Mon-Fri with problems, questions or concerns. If you call after 8pm or on weekends, call the Hospital at [phone] and ask to speak to the Architecture Consultant seasonal customer service associate and the lye machine operator will contact that person for you. When should you call for help? Call [phone] anytime you think you may need emergency [...] any problems. Where can you learn more? [facility] View your After Visit Summary and more online at [email or web address] If you would like to provide [...] cost to you. Content Version: 12.2 ?? [id number] [employer]. Care instructions adapted under license by [facility]. If you have questions about a medical condition or this instruction, always ask your healthcare professional. [employer] disclaims any warranty or liability for your [...] directed. 05/02/2020 fluticasone propionate (FLONASE) 50 mcg/actuation [place], Suspension 1 spray daily. pramipexole (MIRAPEX) 0.125 [...] 100 mg capsule Take by mouth. 02/24/2009 fluconazole (Diflucan) 100 mg Tablet TAKE 2 TABLETS BY MOUTH ON DAY 1 THEN TAKE 1 TABLET BY MOUTH ONCE DAILY SAME TIME EACH DAY FOR NEXT 14 DAYS 08/16/2021 08/08/2023 lisinopril (PRINIVIL;ZESTRIL) 20 mg Tablet Take 20 [...] as of this encounter H&P Notes * Leland Ramos MD - 01/31/2022 11:31 AM EDT Patient Name: Milka Corbett Patient Age: 81 y.o. Birthdate: 1940 Admit date: 01/31/2022 Attending Physician: Leland Ramos MD Gastroenterology and Hepatology Pre-Procedure History and Physical Exam Procedure: EGD: Indication: BA cirrhosis, surveillance for varices Patient Active Problem List Diagnosis Code ??? Bladder cancer C67.9 ??? S/P hysterectomy Z90.710 ??? Vaginal lesion N89.8 ??? Mixed incontinence N39.46 ??? NAFLD (nonalcoholic fatty liver disease) K76.0 ??? Hepatic cirrhosis K74.60 EXAM: HEENT: Airway examined, oropharynx clear Mallampati Score: I (soft palate, uvula, fauces, tonsillar pillars visible) LUNGS: Clear to auscultation HEART: Regular [...] 02/06/2024 11:30 AM EDT [place] [phone] Molly Cui, [facility] [place] [address] 02/06/2024 12:15 PM EDT Laboratory Appointment Lab [address] [place] [phone] 02/06/2024 1:30 PM EDT Office [place] [phone] Molly Cui, [facility] [place] [address] documented as of this encounter Procedures Procedure Name Priority Date/Time Associated Diagnosis Comments Upper GI Endoscopy, Diagnostic (53212) 01/31/2022 11:11 AM EDT Hepatic cirrhosis, unspecified hepatic cirrhosis type, unspecified whether ascites present POCT GLUCOSE Routine 01/31/2022 10:51 AM EDT UPPER GI ENDOSCOPY Routine 01/31/2022 10 :36 AM EDT documented in this encounter Results * POCT Glucose (01/31/2022 10:51 AM EDT) [facility] Signature Glucose, POC 123 65 - 199 mg/dL [facility] Comment: Supplemental ranges: <140 mg/dL before meals <180 mg/dL all other times of the day Blood 01/31/2022 10:5 1 AM EDT 01/31/2022 10:51 AM EDT Leland Ramos MD POINT OF CARE TEST O RDERABLES [facility] [place] [address] * UPPER GI ENDOSCOPY (01/31/2022 10:36 AM EDT) [facility] UPPER GI ENDOSCOPY [facility] Endoscopy Procedure Date: 01/31/2022 10:36 AM ? Patient Name: Milka Corbett ? Date of : 1940 ? Age: 81 ? Order #: [id number] ? Instrument Name: [id number] ? Procedure: ? Upper GI endoscopy Indications: ? Cirrhosis with suspected esophageal ? varices Patient Profile: ? 81 yo F with BA cirrhosis ? presents for variceal surveillance ? EGD. Providers: ? Leland Ramos, Dinh Laureano, ? Frandy Perez MD: ?Sophia Mcarthur MD, None, MD Medicines: ? Midazolam 2 mg IV, Fentanyl 75 ? micrograms IV Complications: ? No immediate complications. Procedure: ? Pre-Anesthesia Assessment: ? - Prior to the procedure, a History ? and Physical was performed, and ? patient medications and allergies ? were reviewed. The patient is ? competent. The risks and benefits ? of the procedure and the sedation ? options and risks were discussed ? with the patient. All questions ? were answered and informed consent ? was obtained. Patient ? identification and proposed ? procedure were verified by the ? physician, the nurse and the ? avionics repair technician in the pre-procedure ? area in the procedure room. Mental ? Status Examination: alert and ? oriented. Airway Examination: ? normal oropharyngeal airway and ? neck mobility. Respiratory ? Examination: clear to auscultation. ? CV Examination: normal. ? Prophylactic Antibiotics: The ? patient does not require ? prophylactic antibiotics. Prior ? Anticoagulants: The patient has ? taken no anticoagulant or ? antiplatelet agents. ASA Grade ? Assessment: II - A patient with ? mild systemic disease. After ? reviewing the risks and benefits, ? the patient was deemed in ? satisfactory condition to undergo ? the procedure. The anesthesia plan ? was to use moderate sedation / ? analgesia (conscious sedation). ? Immediately prior to administration ? of medications, the patient was ? re-assessed for adequacy to receive ? sedatives. The heart rate, ? respiratory rate, oxygen ? saturations, blood pressure, ? adequacy of pulmonary ventilation, ? and response to care were monitored ? throughout the procedure. The ? physical status of the patient was ? re-assessed after the procedure. ? The procedure, indications, ? [...] the procedure ? well. ? Findings: ? Small (< 5 mm) varices were found in the distal ? esophagus. ? The Z-line was irregular with three <2-mm diameter ? islands of salmon-colored mucosa at 36-cm from the ? z-line at 37-cm. No nodule or masses. Not biopsied as ? the salmon-colored mucosa overlayed flattened ? esophageal varices, and biopsies would introduce risk ? of a variceal bleed. ? Mild portal hypertensive gastropathy ? Normal duodenum. ? Moderate Sedation: ? Moderate (conscious) sedation was administered by the ? endoscopy nurse and supervised by the endoscopist. ? The following parameters were monitored: oxygen ? saturation, heart rate, blood pressure, and response ? to care. ? I was present during the intraservice time as ? documented by the sedation RN. Impression: ?- Small esophageal varices. ? 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 biopsied given risk of variceal ? bleed from taking biopsy overlying ? flattened varices. ? - Mild portal hypertensive ? gastropathy ? - Normal duodenum. Recommendation: ?- Patient has a contact number ? available for emergencies. The ? signs and symptoms of potential ? delayed complications were ? discussed with the patient. Return ? to normal activities tomorrow. ? Written discharge instructions were ? provided to the patient. ? - Follow up in Hepatology Clinic. ? Would consider empiric treatment ? with high dose proton pump ? inhibitor medications (omeprazole ? 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 ? Attending Participation: ? I personally performed the entire procedure. ? _ Leland Ramos, 01/31/2022 12:38:07 PM Number of Addenda: 0 Note Initiated On: 01/31/2022 10:36 AM [employer]ATION 01/31/2022 10:3 6 AM EDT None GENERAL SURGICAL ORD ERABLES [employer] documented in this encounter Visit Diagnoses Diagnosis Hepatic cirrhosis, unspecified hepatic cirrhosis type, unspecified whether ascites present documented in this encounter Administered Medications Inactive Administered Medications - up to 3 most recent administrations Medication Order MAR Action Action Date Dose Rate Site fentaNYL (pf) (50 mcg/mL) multi-dose injection ONCE PRN, Starting on Sat01/31/22 at 1131, Until Sat01/31/22 at 1542, Intra-Operative (Intra-Procedure), Routine Given 01/31/2022 11:35 AM EDT 25 mcg Given 01/31/2022 11:31 AM EDT 50 mcg midazolam (pf) (Versed) (1 mg/mL) multi-dose injection ONCE PRN, Starting on Sat01/31/22 at 1131, Until Sat01/31/22 at 1542, Intra-Operative (Intra-Procedure), Routine Given 01/31/2022 11:34 AM EDT 1 mg Given 01/31/2022 11:31 AM EDT 1 mg documented in this encounter Active and Recently Administered Medications Times are shown in EDT. PRN Medication Order 01/29/2022 01/30/2022 01/31/2022 fentaNYL (pf) (50 mcg/mL) multi-dose injection (CANCELED) ONCE PRN, Starting on Sat01/31/22 at 1131, Until Sat01/31/22 at 1542, Intra-Operative (Intra-Procedure), Routine 1131 (Given - Provid er: Dinh Laureano RN)1135 (Given - Provider: Dinh Laureano RN) midazolam (pf) (Versed) (1 mg/mL) multi-dose injection (CANCELED) ONCE PRN, Starting on Sat01/31/22 at 1131, Until Sat01/31/22 at 1542, Intra-Operative (Intra-Procedure), Routine 1131 (Given - Provid er: Dinh Laureano RN)1134 (Given - Provider: Dinh Laureano RN) documented in this encounter Care Teams Transfer Worker Relationship Specialty Start Date End Date Salome Mcarthur APRN [address] [place] [address] PCP - General Family Medicine 05/30/15 documented as of this encounter
--- OUTSIDE RECORDS SUMMARY | 2023-12-02 18:34 | XMS_ITS | Encounter Summary ---
Author Organization [facility] Address [facility] [place] [address] Care Team Providers Care Rivet Bucker Name Role Phone Salome Mcarthur APRN Primary Care Provider [phone] Encounter Details Date Type Department Care Team (Latest Contact Info) Description 11/29/2021 9:45 AM EDT - 11/29/2021 11:59 PM EDT Hospital [place] [phone] Molly Wallis SOFTWARE TEST AUTOMATION ENGINEER [facility] [place] [address] Hepatic cirrhosis, unspecified hepatic cirrhosis type, unspecified [...] directed. 05/02/2020 fluticasone propionate (FLONASE) 50 mcg/actuation [place], Suspension 1 spray daily. pramipexole (MIRAPEX) 0.125 [...] 02/06/2024 11:30 AM ED[place] [phone] Molly Wallis, [facility] [place] [address] 02/06/2024 12:15 PM EDT Laboratory Appointment Lab [address] [place] [phone] 02/06/2024 1:30 PM EDT Office [place] [phone] Molly Wallis, [facility] [place] [address] documented as of this encounter Procedures Procedure Name Priority Date/Time Associated Diagnosis Comments US ABDOMEN LIMITED HEPATOLOGY PROTOCOL Routine 11/29/2021 10:20 AM EDT Hepatic cirrhosis, unspecified hepatic cirrhosis type, unspecified whether ascites present documented in this encounter Results * US Abdomen Limited Hepatology Protocol (11/29/2021 10:20 AM EDT) Anatomical Region Laterality Modality Abdomen Ultrasound 11/29/2021 10:1 7 AM EDT Impressions 11/29/2021 10:30 AM EDT 1. Stable interval examination. Hepatomegaly, coarsened parenchyma with capsular nodularity from known cirrhosis. Stable small calcification and hemangioma within the left lobe. No new or concerning focal lesion. 2. Gallbladder surgically absent. No intra or extrahepatic biliary ductal dilation. 3. No ascites. Thank you for letting us participate in the care of this patient. If you are a health care provider and have any questions regarding this report, please contact the number above. For patients who have questions, please contact the health nanny caregiver that requested your imaging first. ?Avila Keith, Staff Physician Electronically Signed Final Report ?? 11/29/2021 10:30 am Narrative 11/29/2021 10:30 AM EDT Abdominal ? (Signed Final 11/29/2021 10:30 am) PATIENT INFO: ID #: ? [id number] ?: ??[birth year] (81 yrs)(F) Name: ? MILKA MENDIETA ?Visit Date: 11/29/2021 10:17 am PERFORMED BY: Performed By: ? Dea Mata RDMS Attending: ?Avila Keith MD Referred By: ?MOLLY WALLIS Secondary Phy.: ?? MOLLY WALLIS SOFTWARE TEST AUTOMATION ENGINEER Location: ? [place] [facility] Hep[facility] Protocol - Abdominal ?98417 Limited Survey Single Organ or Quadrant - [id number] INDICATIONS: cirrhosis, screen for hcc COMPARISON: US: Hepatology 06/01/21 ------ LIVER: ------ Right Lobe Length: ?? 21.7 ?? cm Echogenicity/Echotexture: ?? Coarse parenchyma with capsular ? nodularity Portal Veins: ?Hepatopetal -------- Lesions: -------- # ?Date ?Location ?Description ?L ?AP ?TV (cm) ?11/29/21 ?Left Lobe ? Hyperechoic, ?0.5 ?0.4 ? 0.0 ?Avascular ?06/01/21 ?Left Lobe ? Hyperechoic, ?0.5 ?0.5 ? 0.5 ?Avascular ?09/26/20 ?Posterior ? Echogenic ? 0.6 ?0.4 ? 0.7 ?Left Lobe Comment: ?Hepatomegaly. 8 mm calculus again seen. GALLBLADDER: Cholelithiasis: ?Surgically absent BILIARY TRACT: Intrahepatic Ducts: ?? Normal Extrahepatic Ducts: ?? Normal Common Duct Size: ? 7.7 ? mm FLUID COLLECTIONS: No ascites seen. Procedure Note Avila Keith MD - 11/29/2021 Abdominal (Signed Final 11/29/2021 10:30 am) PATIENT INFO: ID #: [id number] : 42 (81 yrs)(F) Name: MILKA MENDIETA Visit Date: 11/29/2021 10:17 am PERFORMED BY: Performed By: Dea Mata RDMS Attending: Avila Keith MD Referred By: MOLLY WALLIS [facility] Phy.: MOLLY WALLIS APRN Location: [place] SERVICE(S) PROVIDED: [facility] - Hepatology Protocol - Abdominal 40330 Limited Survey Single Organ or Quadrant - [id number] INDICATIONS: cirrhosis, screen for hcc COMPARISON: US: Hepatology 06/01/21 ------ LIVER: ------ Right Lobe Length: 21.7 cm Echogenicity/Echotexture: Coarse parenchyma with capsular nodularity Portal Veins: Hepatopetal -------- Lesions: -------- # Date Location Description L AP TV (cm) 11/29/21 Left Lobe Hyperechoic, 0.5 0.4 0.0 Avascular 06/01/21 Left Lobe Hyperechoic, 0.5 0.5 0.5 Avascular 09/26/20 Posterior Echogenic 0.6 0.4 0.7 Left Lobe Comment: Hepatomegaly. 8 mm calculus again seen. GALLBLADDER: Cholelithiasis: Surgically absent BILIARY TRACT: Intrahepatic Ducts: Normal Extrahepatic Ducts: Normal Common Duct Size: 7.7 mm FLUID COLLECTIONS: No ascites seen. IMPRESSION 1. Stable interval examination. Hepatomegaly, coarsened parenchyma with capsular nodularity from known cirrhosis. Stable small calcification and hemangioma within the left lobe. No new or concerning focal lesion. 2. Gallbladder surgically absent. No intra or extrahepatic biliary ductal dilation. 3. No ascites. Thank you for letting us participate in the care of this patient. If you are a health care provider and have any questions regarding this report, please contact the number above. For patients who have questions, please contact the health nanny caregiver that requested your imaging first. Avila Keith, Staff Physician Electronically Signed Final Report 11/29/2021 10:30 am Molly Wallis APRN [facility] GEN ORDERAB LES documented in this encounter Visit Diagnoses Diagnosis Hepatic cirrhosis, unspecified hepatic cirrhosis type, unspecified whether ascites present documented in this encounter Care Teams Rivet Bucker Relationship Specialty Start Date End Date Salome Mcarthur APRN [address] [place] [address] PCP - General Family Medicine 05/30/15 documented as of this encounter
--- OUTSIDE RECORDS SUMMARY | 2023-12-02 18:34 | XMS_ITS | Encounter Summary ---
Author Organization [facility] Address [facility] [place] [address] Care Team Providers Care Loom Setter Name Role Phone Salome Mcarthur APRN Primary Care Provider [phone] Encounter Details Date Type Department Care Team (Latest Contact Info) Description 06/01/2021 9:30 AM EST - 06/01/2021 11:59 PM [facility] Hospital [place] [phone] Molly Wallis COIL REPAIR TECHNICIAN [facility] [place] [address] Hepatic cirrhosis, unspecified hepatic cirrhosis type, unspecified [...] directed. 05/02/2020 fluticasone propionate (FLONASE) 50 mcg/actuation [place], Suspension 1 spray daily. pramipexole (MIRAPEX) 0.125 [...] 100 mg capsule Take by mouth. 02/24/2009 lisinopril (PRINIVIL;ZESTRIL) 20 mg Tablet Take 20 [...] 02/06/2024 11:30 AM EDT [place] [phone] Molly Wallis, [facility] [place] [address] 02/06/2024 12:15 PM EDT Laboratory Appointment Lab [address] [phone] 02/06/2024 1:30 PM EDT Office [place] [phone] Molly Wallis, [facility] [place] [address] documented as of this encounter Procedures Procedure Name Priority Date/Time Associated Diagnosis Comments US ABDOMEN LIMITED HEPATOLOGY PROTOCOL Routine 06/01/2021 9:49 AM EST Hepatic cirrhosis, unspecified hepatic cirrhosis type, unspecified whether ascites present documented in this encounter Results * US Abdomen Limited Hepatology Protocol (06/01/2021 [...] who have questions, please contact the health urgent care that requested your imaging first. ?Marilee Her, Staff Physician Electronically Signed Final Report ?? 06/01/2021 10:01 am Narrative 06/01/2021 10:02 AM EST Abdominal ? (Signed Final 06/01/2021 10:01 am) PATIENT INFO: ID #: ? [id number] ?: ??42 (80 yrs)(F) Name: ? MILKA MENDIETA ?Visit Date: 06/01/2021 09:47 am PERFORMED BY: Performed By: ? Lana Gotti RDMS Attending: ?Betty GALLO, Marilee Ragsdale Referred By: ?MOLLY WALLIS Secondary Phy.: ?? MOLLY WALLIS COIL REPAIR TECHNICIAN Location: ? [place] [facility] Hep[facility] Protocol - Abdominal ? 97277 Limited Survey Single Organ or Quadrant - [id number] INDICATIONS: cirrhosis, screen for hcc ------ LIVER: [...] 06/01/2021 10:01 am) PATIENT INFO: ID #: [id number] : 42 (80 yrs)(F) Name: MILKA MENDIETA Visit Date: 06/01/2021 09:47 am PERFORMED BY: Performed By: Lana Gotti RDMS Attending: Marilee Hernández MD Referred By: MOLLY WALLIS [facility] Phy.: MOLLY WALLIS APRN Location: [place] [facility] - Hepatology Protocol - Abdominal 72907 Limited Survey Single Organ or Quadrant - [id number] INDICATIONS: cirrhosis, screen for hcc ------ LIVER: [...] who have questions, please contact the health urgent care that requested your imaging first. Marilee Her, Staff Physician Electronically Signed Final Report 06/01/2021 10:01 am Molly Wallis APRN IMG GEN ORDERAB LES documented in this encounter Visit Diagnoses Diagnosis Hepatic cirrhosis, unspecified hepatic cirrhosis type, unspecified whether ascites present documented in this encounter Care Teams Loom Setter Relationship Specialty Start Date End Date Salome Mcarthur APRN [address] [place] [address] PCP - General Family Medicine 05/30/15 documented as of this encounter
--- OUTSIDE RECORDS SUMMARY | 2023-12-02 18:34 | XMS_ITS | Encounter Summary ---
Author Organization [facility] Address [facility] [place] [address] Care Team Providers Care Sugar Coating Hand Name Role Phone Salome Mcarthur APRN Primary Care Provider [phone] Reason for Visit * Auth/Cert Specialty Diagnoses / Procedures Referred By Jose bermudez Referred To Contact Diagnoses cirrhosis with varices, reassess. EGD ordered 05/2021 but not scheduled yet, new order with higher urgency placed. Procedures PRO UPPER GI ENDOSCOPY, DIAGNOSTIC EGD, UPPER GI ENDOSCOPY Ml Ayala MD [facility] [place] [address] [facility] Referral ID Status Reason Start Date Expiration Date Visits Re quested Visits Authorized [id number] 1 1 Encounter Details Date Type Department Care Team (Latest Contact Info) Description 01/31/2022 10:28 AM EDT - 01/31/2022 1:41 PM EDT Hospital Encounter [place] [address] Leland Ramos MD [facility] [place] [address] Discharge Disposition: Home Social History Tobacco Use [...] Sign Reading Time Taken Comments Blood Pressure 121/62 01/31/2022 1:20 PM EDT Pulse 98 01/31/2022 10:42 AM EDT Temperature 36.1 ??C (96.9 ??F) 01/31/2022 10:42 AM E DT Respiratory Rate 18 01/31/2022 1:20 PM EDT Oxygen Saturation 96% 01/31/2022 1:20 PM EDT Inhaled Oxygen Concentration - - Weight - - Height - - Body Mass Index - - documented in this encounter Discharge Instructions * Discharge Instructions* Kita Sherman, RN - 01/31/2022 1:25 PM EDT Upper [...] the day after the procedure, use an [id number] spray to numb your throat. Sucking on [...] occurs, please contact your Doctor. Please call [phone] before 8pm Mon-Fri with problems, questions or concerns. If you call after 8pm or on weekends, call the Hospital at [phone] and ask to speak to the Unix System Administrator hot pond operator and the disintegrator operator will contact that person for you. When should you call for help? Call [phone] anytime you think you may need emergency [...] any problems. Where can you learn more? [facility] View your After Visit Summary and more online at [email or web address] If you would like to provide feedback about your hospital experience, please call the Office of Patient and Family Relations at . If you have received this After Visit Summary in error, please immediately return it in person to the department, or notify the [facility] Privacy Office by calling toll free at between the hours of 8AM and 5PM to arrange for our retrieval of the documents at no cost to you. Content Version: 12.2 ?? [id number] [employer]. Care instructions adapted under license by [facility]. If you have questions about a medical condition or this instruction, always ask your healthcare professional. [employer] disclaims any warranty or liability for your [...] directed. 05/02/2020 fluticasone propionate (FLONASE) 50 mcg/actuation [place], Suspension 1 spray daily. pramipexole (MIRAPEX) 0.125 [...] 11:30 AM EDT Appointment [place] [phone] Molly Cui, [facility] [place] [address] 02/06/2024 12:15 PM EDT Laboratory Appointment Lab [address] [place] [phone] 02/06/2024 1:30 PM EDT Office [place] [phone] Molly Cui, [facility] [place] [address] documented as of this encounter Procedures Procedure Name Priority Date/Time Associated Diagnosis Comments Upper GI Endoscopy, Diagnostic (71691) 01/31/2022 11:11 AM EDT Hepatic cirrhosis, unspecified hepatic cirrhosis type, unspecified whether ascites present POCT GLUCOSE Routine 01/31/2022 10:51 AM EDT UPPER GI ENDOSCOPY Routine 01/31/2022 10 :36 AM EDT documented in this encounter Results * POCT Glucose (01/31/2022 10:51 AM EDT) Glucose, POC 123 65 - 199 mg/dL [facility] Comment: Supplemental ranges: <140 mg/dL before meals <180 mg/dL all other times of the day Blood 01/31/2022 10:5 1 AM EDT 01/31/2022 10:51 AM EDT Leland Ramos MD POINT OF CARE TEST O RDERABLES [facility] [place] [address] * UPPER GI ENDOSCOPY (01/31/2022 10:36 AM EDT) Pathologist [facility] UPPER GI ENDOSCOPY [facility] Procedure Date: 01/31/2022 10:36 AM ? Patient Name: Milka Corbett ? N: [id number] ? Date of : 1940 ? Age: 81 ? Order #: [id number] ? Instrument Name: [id number] ? Procedure: ? Upper GI endoscopy Indications: [...] ? physician, the nurse and the ? brewing technician in the pre-procedure ? area in [...] Diagnoses Not on filedocumented in this encounter Active and Recently Administered Medications Times are shown in EDT. PRN Medication Order 01/29/2022 01/30/2022 01/31/2022 fentaNYL (pf) (50 mcg/mL) multi-dose injection (CANCELED) ONCE PRN, Starting on 01/31/22 at 1131, Until Sat01/31/22 at 1542, Intra-Operative (Intra-Procedure), Routine 1131 (Given - Provid er: Dinh Laureano RN)1135 (Given - Provider: Dinh Laureano RN) midazolam (pf) (Versed) (1 mg/mL) multi-dose injection (CANCELED) ONCE PRN, Starting on 01/31/22 at 1131, Until Sat01/31/22 at 1542, Intra-Operative (Intra-Procedure), Routine 1131 (Given - Provid er: Dinh Laureano, TRISHA)1134 (Given - Provider: Dinh Laureano RN) documented in this encounter Care Teams Sugar Coating Hand Relationship Specialty Start Date End Date Salome Mcarthur APRN [address] [place] [address] PCP - General Family Medicine 05/30/15 documented as of this encounter
--- OUTSIDE RECORDS SUMMARY | 2023-12-02 18:34 | XMS_ITS | Encounter Summary ---
Author Organization [facility] Address [facility] [place] [address] Care Team Providers Care E Learning Designer Name Role Phone Salome Mcarthur APRN Primary Care Provider [phone] Encounter Details Date Type Department Care Team (Latest Contact Info) Description 12/05/2022 12:15 PM EDT Laboratory Appointment Lab [address] [place] [phone] Hepatic cirrhosis, unspecified hepatic cirrhosis type, unspecified [...] 02/06/2024 11:30 AM EDT [place] [phone] Molly Cui ORTHODONTIC LABORATORY TECHNICIAN [facility] [place] [address] 02/06/2024 12:15 PM EDT Laboratory Appointment Lab [address] [place] [phone] 02/06/2024 1:30 PM EDT Office [place] [address] Molly Cui APRN [facility] [place] [address] documented as of this encounter Procedures Procedure Name Priority Date/Time Associated Diagnosis Comments HEMOGRAM Routine 12/05/2022 12:22 PM EDT Hepatic cirrhosis, unspecified hepatic cirrhosis type, unspecified whether ascites present DIFFERENTIAL, AUTOMATED Routine 12/05/2022 12:22 PM EDT Hepatic cirrhosis, unspecified hepatic cirrhosis type, unspecified whether ascites present PROTHROMBIN TIME Routine 12/05/2022 12:2 2 PM EDT Hepatic cirrhosis, unspecified hepatic cirrhosis type, unspecified whether ascites present CBC (WITH DIFF) Routine 12/05/2022 12:22 PM EDT Hepatic cirrhosis, unspecified hepatic cirrhosis type, unspecified whether ascites present COMPREHENSIVE METABOLIC PANEL Routine 12/05/2022 12:22 PM EDT Hepatic cirrhosis, unspecified hepatic cirrhosis type, unspecified whether ascites present documented in this encounter Results * Differential, Automated (12/05/2022 12:22 PM EDT) Neutrophil % 56.6 % [facility] Neutrophil Absolute 2.71 1.70 - 6.10 x10(3)/[facility] Lymph % 30.5 % [facility] Lymphocytes Abs 1.5 0.9 - 3.2 x10(3)/[facility] Monocyte % 9.2 % [facility] Monocyte Abs 0.4 0.3 - 0.9 x10(3)/[facility] Eos % 2.9 % [facility] Eosinophils Abs 0.1 0.0 - 0.4 x10(3)/[facility] Basophil % 0.4 % [facility] Baso Absolute 0.0 0.0 - 0.1 x10(3)/[facility]AT[facility] Immature Gran % 0.40 % [facility] Comment: Immature granulocytes(IG's)percentage and absolute count will include metamyelocytes, myelocytes, and promyelocytes. Blood smears from CBCs yielding IG's will be scanned manually for concordance. If this scan disagrees with the automated IG or if promyelocytes are noted, a manual differential will be performed. Immature Gran Absolute 0.02 0.00 - 0.04 x10(3)/mcL [facility] Blood 12/05/2022 12:2 2 PM EDT 12/05/2022 12:47 PM EDT Narrative Resulting Agency Comment Spec In Lab Molly Cui ORTHODONTIC LABORATORY TECHNICIAN HEMATOLOGY ORDERAB LES [facility] [place] [address] * (ABNORMAL) Hemogram (12/05/2022 12:22 PM EDT) White Blood Cell 4.8 4.0 - 9.5 x10(3)/mc L [facility] Red Blood Cell 4.13 4.00 - 5.21 x10(6)/mc L [facility] Hemoglobin 12.8 11.7 - 15.5 g/dL [facility] Hematocrit 38.5 35.7 - 45.8 % [facility] Mean Cell Volume 93.2 82.6 - 94.4 fL [facility] Mean Cell Hemoglobin 31.0 27.1 - 32.0 pg [facility] Mean Cell Hemoglobin Concentration 33.2 31.7 - 35.0 g/dL [facility] Platelet 91(L) 145 - 357 x10(3)/mc L [facility] RDW Standard Deviation 46.7(H) 37.0 - 46.0 fL [facility] RDW coefficient of variation 13.8 11.5 - 14.1 % [facility] Mean Platelet Volume 11.2 7.6 - 12.9 fL [facility] NRBC% auto 0.0 % [facility] NRBC Absolute 0.000 0.000 - 0.000 x10(3)/mc L [facility] Blood 12/05/2022 12:2 2 PM EDT 12/05/2022 12:47 PM EDT Narrative Resulting Agency Comment Spec In Lab Molly Cui ORTHODONTIC LABORATORY TECHNICIAN HEMATOLOGY ORDERAB LES [facility] [place] [address] * (ABNORMAL) Comprehensive metabolic panel (non-fasting) (12/05/2022 12:22 PM EDT) Glucose 114 65 - 199 mg/dL [facility] Comment:Diabetes: >=200 mg/d L plus symptoms Blood Urea Nitrogen 17 8 - 18 mg/dL [facility] Creatinine 0.71 0.70 - 1.20 mg/dL [facility] Sodium 142 135 - 145 mmol/L [facility] Potassium 4.1 3.5 - 5.0 mmol/L [facility] Comment: Please note: ??Patients with WBC >100,000 may have falsely elevated Potassium levels. ??For accurate Potassium quantification in these patients send serum separator tube (gold top) for subsequent determinations. ??Contact the Clinical Chemistry Laboratory if there are any questions. Chloride 105 98 - 107 mmol/L [facility] Carbon Dioxide 28 22 - 31 mmol/L [facility] Anion Gap 9 5 - 15 mmol/L [facility] Calcium 9.7 8.5 - 10.5 mg/dL [facility] Protein, Total 7.0 6.1 - 8.0 g/dL [facility] Albumin 4.2 3.2 - 5.2 g/dL [facility] Aspartate Aminotransferase 33(H) 0 - 30 unit/L [facility] Alanine Aminotransferase 32(H) 0 - 30 unit/L [facility] Alkaline Phosphatase 136(H) 35 - 105 unit/L [facility] Bilirubin, Total 0.6 0.2 - 1.3 mg/dL [facility] Est Glomerular Filtration Rate 85 >=60 mL/min/1. 73 m?? [facility] Comment: This patient's estimated GFR [...] APRN CHEMISTRY ORDERABL ES Performing Organization Address [facility] Co de Phone Number [facility] [place] [address] * (ABNORMAL) Prothrombin Time (12/05/2022 12:22 PM EDT) Prothrombin Time 13.2(H) 9.4 - 12.5 sec [facility] International Normalization Ratio 1.2 [facility] Comment: An INR <2.0 indicates [...] APRN HEMATOLOGY ORDERAB LES Performing Organization Address [facility] [place] [address] documented in this encounter Visit Diagnoses Diagnosis Hepatic cirrhosis, unspecified hepatic cirrhosis type, unspecified whether ascites present documented in this encounter Care Teams E Learning Designer Relationship Specialty Start Date End Date Salome Mcarthur APRN [address] [place] [address] PCP - General Family Medicine 05/30/15 documented as of this encounter
--- OUTSIDE RECORDS SUMMARY | 2023-12-02 18:34 | XMS_ITS | Encounter Summary ---
Author Organization [facility] Address [facility] [place] [address] Care Team Providers Care Icu Specialist Name Role Phone Salome Mcarthur APRN Primary Care Provider [phone] Encounter Details Date Type Department Care Team (Late st Contact Info) Description 06/01/2021 12:00 PM EST Office [place] [address] Lani Wallis APRN [facility] [place] [address] Hepatic cirrhosis, unspecified hepatic cirrhosis type, unspecified [...] Sign Reading Time Taken Comments Blood Pressure 141/59 06/01/2021 11:38 AM EST Pulse 109 06/01/2021 11:38 AM EST Temperature - - Respiratory Rate - - Oxygen Saturation - - Inhaled Oxygen Concentration - - Weight 64.7 kg (142 lb 9.6 oz) 06/01/2021 11:38 AM EST Height 154.9 cm (5' 1) 06/01/2021 11:38 AM EST Body Mass Index 26.94 06/01/2021 11:38 AM EST documented in this encounter Progress Notes * Lani Wallis APRN - 06/01/2021 12:00 PM EST Hepatology Follow Up Note Patient: Nick Mendieta Gender: female : 1940 Provider: Lani Wallis NP Referring Physician: Salome Mcarthur APRN HISTORY OF PRESENT ILLNESS Nick Mendieta is a 80 y.o. year old female With BA Cirrhosis who returns today for follow up. She has gained about 10 lbs. Feels like her appetite has increased. She has been out of Victoza forabout a week but just got it from the pharmacy. When she first started Victoza she lost a lot of weight, but since then has gained some weight. Blood sugar at home has been a little high. Feels like she loses words. She stopped lactulose becaues of diarrhea . She has had several falls. Had a CT scan. 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 She gets frequent vertigo. PAST MEDICAL/SURGICAL HISTORY 1. Cirrhosis due to [...] Outpatient Medications Marked as Taking for the 06/01/21 encounter (Office Visit) with Lani Wallis APRN Medication Sig Dispense Refill ??? atorvastatin (Lipitor) 20 mg Tablet Take 20 mg by mouth daily. ??? Victoza 2-Jl 0.6 mg/0.1 mL (18 mg/3 mL) Pen Injector ??? lisinopril (PRINIVIL;ZESTRIL) 20 mg Tablet Take 20 mg by mouth daily. ??? fluticasone propionate (FLONASE) 50 mcg/actuation Gail, Suspension 1 spray daily. ??? pramipexole (MIRAPEX) [...] mouth nightly. Current Facility-Administered Medications for the 06/01/21 encounter (Office Visit) with Lani Wallis APRN [...] 29 of acute hepatitis PHYSICAL EXAM Vitals: 06/01/21 1138 BP: 141/59 BP Location (NBP): Right arm Patient Position: Sitting BP Cuff Sizes: Adult (25-34 cm) Pulse: (!) 109 Weight: 64.7 kg (142 lb 9.6 oz) Height: 154.9 cm (5' 1) Body mass index is 26.94 kg/m??. Exam: Appears well. No apparent distress. Lab Results Component Value Date WBC 6.8 06/01/2021 HGB 12.8 06/01/2021 HCT 38.6 06/01/2021 MCV 91.9 06/01/2021 PLATELET 93 (L) 06/01/2021 Recent Labs 06/01/21 1031 INR 1.1 Chemistry Component Value Date/Time NA 139 06/01/2021 1031 K 4.3 06/01/2021 1031 CL 102 06/01/2021 1031 CO2 25 06/01/2021 1031 BUN 16 06/01/2021 1031 CREATININE 0.61 (L) 06/01/2021 1031 Component Value Date/Time CALCIUM 10.0 06/01/2021 1031 ALKPHOS 95 06/01/2021 1031 AST 45 (H) 06/01/2021 1031 ALT 60 (H) 06/01/2021 1031 BILITOT 0.7 06/01/2021 1031 MELD-Na score: 7 at 06/01/2021 10:31 AM MELD score: 7 at 06/01/2021 10:31 AM Calculated from: Serum Creatinine: 0.61 mg/dL (Using min of 1 mg/dL) at 06/01/2021 10:31 AM Serum Sodium: 139 mmol/L (Using max of 137 mmol/L) at 06/01/2021 10:31 AM Total Bilirubin: 0.7 mg/dL (Using min of 1 mg/dL) at 06/01/2021 10:31 AM INR(ratio): 1.1 at 06/01/2021 10:31 AM Age: 80 years EGD 09/26/2020: Impression: ?- Small (< 5 mm) esophageal varices. ?- Mild antral gastritis. ?- Normal examined duodenum. ?- No specimens collected. Recommendation: ?- Discharge patient to home. ?- Resume previous diet. ?- Return to liver clinic. ? - Repeat upper endoscopy in 1 year ?for surveillance. Ultrasound 06/01/21: IMPRESSION ?? Comparison 09/26/2020. 1. Stable enlarged nodular coarsened liver consistent with known cirrhosis. Stable small echogenic hemangioma again noted. No new discrete liver lesions are identified. No ascites. Normal hepatopedal flow is seen in the main portal vein. ?? SSMENT/PLAN Nick Mendieta is a 80 y.o. 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 1. Cirrhosis. Diagnosed by fibroscan. Well compensated. MELD 7. 2. BA. Her metabolic risks include diabetes, hypertension, elevated cholesterol, overweight. Her blood sugar is slightly high today, she has gained about 10 lbs in the past 6 months, and her liver enzymes are slightly higher which I suspect is due to her weight gain and hyperglycemia. She will follow up with her PCP. Agree with Victoza, as this is a good medication for the liver. 3. Portal hypertension. EGD done 09/2020 with small varices, stable from year prior. Plan to repeat in 1 year (09/2021). Will place orders today. 4. HCC surveillance. US today with no new lesions. Can repeat US in 6 months. 5. Hepatic encephalopathy. She endorses increased falls and some difficulty word finding. It is difficult to say if this is all due to hepatic encephalopathy, however plan to start Lactulose to see if these symptoms improve on medication. 6. Lung nodule. Followed by PCP, we did not discuss today. 7. Preventative health. She should have annual flu vaccine. Plan: - Follow up in 6 months with labs, US and visit - Will ask PCP to fax us a copy of her advanced directive. - Trial of lactulose for possible hepatic encephalopathy Lani Wallis APRN Section of Gastroenterology [place] [address] Copy: Salome Mcarthur APRN [address] / [place] [address] Time spent reviewing records prior to this [...] 02/06/2024 11:30 AM EDT [place] [address] Lani Wallis APRN [facility] [place] [address] 02/06/2024 12:15 PM EDT Laboratory Appointment Lab [address] [place] [address] 02/06/2024 1:30 PM EDT Office [place] [address] Lani Wallis APRN [facility] [place] [address] documented as of this encounter Results * AFP tumor marker (11/29/2021 11:04 AM EDT) [facility] Alpha Fetoprotein 3.2 <=8.3 ng/mL [facility] Comment: This result was generated using a Janet Maylin immunoassay. ??Results obtained from other methods or manufacturers cannot be used interchangeably with this method. Blood 11/29/2021 11:0 4 AM EDT 11/29/2021 11:12 AM EDT Narrative Resulting Agency Comment Spec In Lab Lani Wallis APRN CHEMISTRY ORDERABL ES [facility] [place] [place] [address] * (ABNORMAL) Prothrombin Time (11/29/2021 11:04 AM EDT) [facility] Prothrombin Time 13.3(H) 9.4 - 12.5 sec [facility] International Normalization Ratio 1.2 [facility] Comment: An INR <2.0 [...] Agency Comment Spec In Lab Lani Wallis [facility] ORDERAB LES [facility] [place] [address] * (ABNORMAL) Comprehensive metabolic panel (non-fasting) (11/29/2021 11:04 AM EDT) Glucose 122 65 - 199 mg/dL [facility] Comment:Diabetes: >=200 mg/d L plus symptoms Blood Urea Nitrogen 18 8 - 18 mg/dL [facility] Creatinine 0.64(L) 0.70 - 1.20 mg/dL [facility] Sodium 140 135 - 145 mmol/L [facility] Potassium 4.2 3.5 - 5.0 mmol/L [facility] Comment: Please note: ??Patients with WBC >100,000 may have falsely elevated Potassium levels. ??For accurate Potassium quantification in these patients send serum separator tube (gold top) for subsequent determinations. ??Contact the Clinical Chemistry Laboratory if there are any questions. Chloride 101 98 - 107 mmol/L [facility] Carbon Dioxide 27 22 - 31 mmol/L [facility] Anion Gap 12 5 - 15 mmol/L [facility] Calcium 11.0(H) 8.5 - 10.5 mg/dL [facility] Protein, Total 7.4 6.1 - 8.0 g/dL [facility] Albumin 4.5 3.2 - 5.2 g/dL [facility] Aspartate Aminotransferase 32(H) 0 - 30 unit/L [facility] Alanine Aminotransferase 39(H) 0 - 30 unit/L [facility] Alkaline Phosphatase 100 35 - 105 unit/L [facility] Bilirubin, Total 0.9 0.2 - 1.3 mg/dL [facility] Est Glomerular Filtration Rate 89 >=60 mL/min/1. 73 m?? [facility] Comment: This patient's estimated GFR was [...] Lab Lani Wallis APRN CHEMISTRY ORDERABL ES [facility] [place] [address] * US Abdomen Limited Hepatology Protocol (11/29/2021 [...] who have questions, please contact the health transitions rn care coordinator that requested your imaging first. ?Avila Keith, Staff Physician Electronically Signed Final Report ?? 11/29/2021 10:30 am Narrative 11/29/2021 10:30 AM EDT Abdominal ? (Signed Final 11/29/2021 10:30 am) PATIENT INFO: ID #: ? [id number] ?: ??[birth year] (81 yrs)(F) Name: ? NICK MENDIETA ?Visit Date: 11/29/2021 10:17 am PERFORMED BY: Performed By: ? Dea Mata RDMS Attending: ?Avila Keith MD Referred By: ?LANI WALLIS Secondary Phy.: ?? LANI WALLIS PERINATOLOGY PHYSICIAN Location: ? [place] [facility] Hepatology Protocol - Abdominal ?07259 Limited Survey Single Organ or Quadrant - [id number] INDICATIONS: cirrhosis, screen for hcc COMPARISON: US: [...] 11/29/2021 10:30 am) PATIENT INFO: ID #: [id number] : [birth year] (81 yrs)(F) Name: NICK MENDIETA Visit Date: 11/29/2021 10:17 am PERFORMED BY: Performed By: Dea Mata RDMS Attending: Avila Keith MD Referred By: LANI WALLIS [facility] Phy.: LANI WALLIS APRN Location: [place] SERVICE(S) PROVIDED: [facility] - Hepatology Protocol - Abdominal 14361 Limited Survey Single Organ or Quadrant - [id number] INDICATIONS: cirrhosis, screen for hcc COMPARISON: US: [...] who have questions, please contact the health transitions rn care coordinator that requested your imaging first. Avila Keith, Staff Physician Electronically Signed Final Report 11/29/2021 10:30 am Lani Wallis APRN [facility] GEN ORDERAB LES documented in this encounter Visit Diagnoses Diagnosis Hepatic cirrhosis, unspecified hepatic cirrhosis type, unspecified whether ascites present Hepatic cirrhosis, unspecified hepatic cirrhosis type, unspecified whether ascites present documented in this encounter Care Teams Icu Specialist Relationship Specialty Start Date End Date Salome Mcarthur APRN [address] [place] [address] PCP - General Family Medicine 05/30/15 documented as of this encounter
--- OUTSIDE RECORDS SUMMARY | 2023-12-02 18:34 | XMS_ITS | Encounter Summary ---
Author Organization [facility] [place] [address] Care Team Providers Care Publications Distribution Clerk Name Role Phone Salome Mcarthur APRN Primary Care Provider [phone] Encounter Details Date Type Department Care Team (Late st Contact Info) Description 01/15/2022 Telephone [place] [address] Gabriela Wright Social History Tobacco Use Types Packs/Day Years [...] 02/06/2024 11:30 AM EDT [place] [address] Molly Cui DOT [employer]CH[employer] APPRENTICE [facility] GASTROENTEROLOGY [place], [place] [id number] 02/06/2024 12:15 PM EDT Laboratory Appointment Lab [address] [place] [phone] 02/06/2024 1:30 PM EDT Office [place] [address] Molly Cui DOT [employer] APPRENTICE [facility] [place] [address] documented as of this encounter Visit Diagnoses Not on filedocumented in this encounter Care Teams Publications Distribution Clerk Relationship Specialty Start Date End Date Salome Mcarthur APRN [address] [place] [address] PCP - General Family Medicine 05/30/15 documented as of this encounter
--- OUTSIDE RECORDS SUMMARY | 2023-12-02 18:34 | XMS_ITS | Encounter Summary ---
Author Organization [facility] Address [facility] [place] [address] Care Team Providers Care Rnp Name Role Phone Salome Mcarthur APRN Primary Care Provider [phone] Encounter Details Date Type Department Care Team (Late st Contact Info) Description 12/05/2022 1:30 PM EDT Office [place] [address] Lani Wallis APRN [facility] [place] [address] Hepatic cirrhosis, unspecified hepatic cirrhosis type, unspecified [...] Sign Reading Time Taken Comments Blood Pressure 126/70 12/05/2022 1:22 PM EDT Pulse 99 12/05/2022 1:22 PM EDT Temperature - - Respiratory Rate - - Oxygen Saturation - - Inhaled Oxygen Concentration - - Weight 63.3 kg (139 lb 9.6 oz) 12/05/2022 1:22 P M EDT Height 154.9 cm (5' 1) 12/05/2022 1:22 PM EDT Body Mass Index 26.38 12/05/2022 1:22 PM EDT documented in this encounter Progress Notes * Lani Wallis APRN - 12/05/2022 1:30 PM EDT Hepatology Follow Up Note Patient: Nick Mendieta Gender: female : 1940 Provider: Lani Wallis NP Referring Physician: Salome Mcarthur APRN HISTORY OF PRESENT ILLNESS Nick Mendieta is a 82 y.o. year old female With BA Cirrhosis who returns today for follow up. Feeling well. Notes a bulge in her L side. When she is constipated she notes she can push on that area and stool will come out. She believes she had pneumonia about 2 months ago. No antibiotics, had chest xrays but that is now resolved. Still taking Omeprazole. PAST MEDICAL/SURGICAL HISTORY 1. Cirrhosis due to [...] Outpatient Medications Marked as Taking for the 12/05/22 encounter (Office Visit) with Lani Wallis APRN Medication Sig Dispense Refill atorvastatin (Lipitor) 20 mg Tablet Take 20 mg by mouth daily. Victoza 2-Jl 0.6 mg/0.1 mL (18 mg/3 mL) Pen Injector pramipexole (MIRAPEX) 0.125 mg Tablet diphenhydrAMINE (BENADRYL) 25 mg Capsule Take 25 [...] cream Apply 1 Application topically as needed. lisinopril-hydrochlorothiazide (PRINZIDE;ZESTORETIC) 10-12.5 mg per tablet Take [...] mouth nightly. Current Facility-Administered Medications for the 12/05/22 encounter (Office Visit) with Lani Wallis APRN Medication Dose Route Frequency Provider Last Rate Last Admin diatrizoate meglumine (HYPAQUE, CYSTOGRAFIN) urethral solution 300 mL 300 mL Urethral Once PRN Sandra Beltrán MD ALLERGIES Allergies Allergen Reactions Codeine Phosphate Rash and Other (See Comments) Causes anxiety Erythromycin Base Nausea And Vomiting Meperidine Hcl Other (See Comments) confusion SOCIAL [...] 29 of acute hepatitis PHYSICAL EXAM Vitals: 12/05/22 1322 BP: 126/70 BP Location (NB): Right arm Patient Position: Sitting BP Cuff Sizes: Adult (25-34 cm) Pulse: 99 Weight: 63.3 kg (139 lb 9.6 oz) Height: 154.9 cm (5' 1) Body mass index is 26.38 kg/m??. Exam: Appears well. No apparent distress. Lab Results Component Value Date WBC 4.8 12/05/2022 HGB 12.8 12/05/2022 HCT 38.5 12/05/2022 MCV 93.2 12/05/2022 PLATELET 91 (L) 12/05/2022 Recent Labs 12/05/22 1222 INR 1.2 Chemistry Component Value Date/Time NA 142 12/05/2022 1222 K 4.1 12/05/2022 1222 CL 105 12/05/2022 1222 CO2 28 12/05/2022 1222 BUN 17 12/05/2022 1222 CREATININE 0.71 12/05/2022 1222 Component Value Date/Time CALCIUM 9.7 12/05/2022 1222 ALKPHOS 136 (H) 12/05/2022 1222 AST 33 (H) 12/05/2022 1222 ALT 32 (H) 12/05/2022 1222 BILITOT 0.6 12/05/2022 1222 MELD 3.0: 9 at 12/05/2022 12:22 PM MELD-Na: 8 at 12/05/2022 12:22 PM Calculated from: Serum Creatinine: 0.71 mg/dL (Using min of 1 mg/dL) at 12/05/2022 12:22 PM Serum Sodium: 142 mmol/L (Using max of 137 mmol/L) at 12/05/2022 12:22 PM Total Bilirubin: 0.6 mg/dL (Using min of 1 mg/dL) at 12/05/2022 12:22 PM Serum Albumin: 4.2 g/dL (Using max of 3.5 g/dL) at 12/05/2022 12:22 PM INR(ratio): 1.2 at 12/05/2022 12:22 PM Age at listing (hypothetical): 82 years Sex: Female at 12/05/2022 12:22 PM EGD 01/27/2022: Impression: - Small esophageal varices. 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 - Mild portal hypertensive gastropathy - Normal duodenum. Recommendation: - Patient has a contact number available for emergencies. The signs and symptoms of potential delayed complications were discussed with the patient. Return to normal activities tomorrow. Written discharge instructions were provided to the patient. - Follow up in Hepatology Clinic. 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 Ultrasound 12/05/2022: 1. Coarsened parenchyma consistent with known cirrhosis. 2. Small lesions, one echogenic at 4 mm and another densely calcified 8 mm are unchanged over many studies, dating back to at least 2019. No new or concerning focal lesion. 3. Gallbladder surgically absent. There is no intra or extrahepatic biliary ductal dilation. 4. Moderate splenomegaly, volume 660 mL. 5. No ascites. ASSESSMENT/PLAN Nick Mendieta is a 82 y.o. 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 1. Cirrhosis. Diagnosed by fibroscan. Well compensated. MELD 7. 2. BA. Her metabolic risks include diabetes, hypertension, elevated cholesterol, overweight. She has been working on her weight and blood sugar and these have both improved. Continue Victoza 3. Portal hypertension. EGD done 01/2022 with small varices, stable from year prior. Plan to repeatEGD now 4. HCC surveillance. US today with no new lesions. Can repeat US in 6 months. 5. Hepatic encephalopathy. No symptoms today. 6. Lung nodule. Followed by PCP, we did not discuss today. 7. Preventative health. She should have annual flu vaccine. 8. 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 Continue Omeprazole, can further evaluate at next EGD. Plan: -Omeprazole 40mg once daily. - Follow up in 6 months with labs, US and visit - EGD 01/2023 for varices surveillance, will place orders today. Lani Wallis APRN Section of Gastroenterology [place] [address] Copy: Salome Mcarthur APRN [address] / [place] [address] Time spent reviewing records prior to this [...] 02/06/2024 11:30 AM EDT [place] [phone] [facility] [place] [address] 02/06/2024 12:15 PM EDT Laboratory Appointment Lab [address] [place] [phone] 02/06/2024 1:30 PM EDT Office [place] [phone] Lani Wallis, [facility] [place] [address] Scheduled Orders Name Type Priority Associated Diagnoses Orde r Schedule ENDOSCOPY CASE REQUEST: EGD, UPPER GI ENDOSCOPY (WRVU 2.09) Procedures Routine Hepatic cirrhosis, unspecified hepatic cirrhosis type, unspecified whether ascites present Ordered: 12/05/2022 documented as of this encounter Results * Prothrombin Time (08/08/2023 12:19 PM EDT) Prothrombin Time 12.2 9.4 - 12.5 sec [facility] International Normalization Ratio 1.1 [facility] Comment: An INR <2.0 [...] Agency Comment Spec In Lab Lani Wallis [facility] ORDERAB LES Performing Organization Address City/State/[facility] Co de Phone Number [facility] [place] [address] * (ABNORMAL) Comprehensive metabolic panel (non-fasting) (08/08/2023 12:19 PM EDT) Glucose 110 65 - 199 mg/dL [facility] Comment:Diabetes: >=200 mg/d L plus symptoms Blood Urea Nitrogen 19(H) 8 - 18 mg/dL [facility] Creatinine 0.72 0.70 - 1.20 mg/dL [facility] Sodium 144 135 - 145 mmol/L [facility] Potassium 4.1 3.5 - 5.0 mmol/L [facility] Comment: Please note: ??Patients with WBC >100,000 may have falsely elevated Potassium levels. ??For accurate Potassium quantification in these patients send serum separator tube (gold top) for subsequent determinations. ??Contact the Clinical Chemistry Laboratory if there are any questions. Chloride 101 98 - 107 mmol/L [facility] Carbon Dioxide 28 22 - 31 mmol/L [facility] Anion Gap 15 5 - 15 mmol/L [facility] Calcium 10.0 8.5 - 10.5 mg/dL [facility] Protein, Total 7.0 6.1 - 8.0 g/dL [facility] Albumin 4.2 3.2 - 5.2 g/dL [facility] Aspartate Aminotransferase 34(H) 0 - 30 unit/L [facility] Alanine Aminotransferase 33(H) 0 - 30 unit/L [facility] Alkaline Phosphatase 121(H) 35 - 105 unit/L [facility] Bilirubin, Total 0.5 0.2 - 1.3 mg/dL [facility] Est Glomerular Filtration Rate 83 >=60 mL/min/1. 73 m?? [facility] Comment: This patient's estimated [...] Lab Lani Wallis APRN CHEMISTRY ORDERABL ES [facility] [place] [address] * US Abdomen Limited Hepatology Protocol (08/08/2023 11:45 AM EDT) WORKSTATION ID [id number] RAD Anatomical Region Laterality Modality Abdomen Ultrasound 08/08/2023 [...] questions, please contact the health respiratory care faculty that requested your imaging first. ?Alisha Grove, Staff Physician Electronically Signed Final Report ?? 08/08/2023 01:31 pm Narrative 08/08/2023 1:32 PM EDT Abdominal ? (Signed Final 08/08/2023 01:31 pm) PATIENT INFO: ID #: ? [id number] ?: ??[birth year] (83 yrs)(F) Name: ? NICK MENDIETA ?Visit Date: 08/08/2023 11:27 am PERFORMED BY: Attending: ?Perfecto GALLO, Alisha Carpio Resident: ? Stevie GALLO, [facility] Performed By: ? Ayaka Biswas RDMS Referred By: ?LANI WALLIS Location: ? [place] [facility] Protocol - Abdominal ?01213 Limited Survey Single Organ or Quadrant - [id number] INDICATIONS: cirrhosis, screen for hcc, splenomegaly ------ [...] 08/08/2023 01:31 pm) PATIENT INFO: ID #: [id number] : [birth year] (83 yrs)(F) Name: NICK MENDIETA Visit Date: 08/08/2023 11:27 am PERFORMED BY: Attending: Alisha Grove MD Resident: Stevie [facility]ALLO [facility] Performed By: Ayaka Biswas RDMS Referred By: LANI WALLIS Location: [place] SERVICE(S) [facility] - Hepatology Protocol - Abdominal 10054 Limited Survey Single Organ or Quadrant - [id number] INDICATIONS: cirrhosis, screen for hcc, splenomegaly ------ [...] questions, please contact the health respiratory care faculty that requested your imaging first. Alisha Grove, Staff Physician Electronically Signed Final Report 08/08/2023 01:31 pm Lani Wallis APRN [facility] GEN ORDERAB LES documented in this encounter Visit Diagnoses Diagnosis Hepatic cirrhosis, unspecified hepatic cirrhosis type, unspecified whether ascites present Hepatic cirrhosis, unspecified hepatic cirrhosis type, unspecified whether ascites present documented in this encounter Care Teams Rnp Relationship Specialty Start Date End Date Salome Mcarthur APRN [address] [place] [address] PCP - General Family Medicine 05/30/15 documented as of this encounter
--- OUTSIDE RECORDS SUMMARY | 2023-12-02 18:34 | XMS_ITS | Encounter Summary ---
Author Organization [facility] Address [facility] [place] [address] Care Team Providers Care Boatswain Mate Name Role Phone Salome Mcarthur APRN Primary Care Provider [phone] Encounter Details Date Type Department Care Team (Late st Contact Info) Description 11/29/2021 1:00 PM EDT Office [place] [address] [facility] [place] [address] Hepatic cirrhosis, unspecified hepatic cirrhosis type, unspecified [...] Sign Reading Time Taken Comments Blood Pressure 139/58 11/29/2021 1:01 PM EDT Pulse 103 11/29/2021 1:01 PM EDT Temperature - - Respiratory Rate - - Oxygen Saturation - - Inhaled Oxygen Concentration - - Weight 61.6 kg (135 lb 14.4 oz) 11/29/2021 1:01 PM EDT Height 154.9 cm (5' 0.98) 11/29/2021 1:01 PM ED T Body Mass Index 25.69 11/29/2021 1:01 PM EDT documented in this encounter Progress Notes * BasiliaMolly mock APRN - 11/29/2021 1:00 PM EDT Hepatology Follow Up Note Patient: Milka Mendieta Gender: female : 1940 Provider: Molly Wallis NP Referring Physician: Salome Mcarthur APRN HISTORY OF PRESENT ILLNESS Milka Mendieta is a 81 y.o. year old female With BA Cirrhosis who returns today for follow up. She has been feeling tired, took zzquil and slept better. Has been watching her blood sugar and that has been improved recently. She was getting vertigo, went to PT and they did 2 visits with Scott Halpike procedure and her vertigo is now gone. PAST MEDICAL/SURGICAL HISTORY 1. Cirrhosis due to [...] Outpatient Medications Marked as Taking for the 11/29/21 encounter (Office Visit) with Molly Wallis APRN Medication Sig Dispense Refill ??? atorvastatin (Lipitor) 20 mg Tablet Take 20 mg by mouth daily. ??? Victoza 2-Jl 0.6 mg/0.1 mL (18 mg/3 mL) Pen Injector ??? lisinopril (PRINIVIL;ZESTRIL) 20 mg Tablet Take 20 mg by mouth daily. ??? fluticasone propionate (FLONASE) 50 mcg/actuation [place], Suspension 1 spray daily. ??? pramipexole (MIRAPEX) 0.125 mg Tablet ??? glipiZIDE (GLUCOTROL XL) 5 mg Tablet Extended Rel 24 hr ??? diphenhydrAMINE (BENADRYL) 25 mg Capsule Take [...] mouth 2 times daily (with meals). ??? triamcinolone (KENALOG) 0.1 % cream Apply 1 Application topically as needed. ??? acetaminophen (TYLENOL) 325 mg tablet Take [...] mouth nightly. Current Facility-Administered Medications for the 11/29/21 encounter (Office Visit) with Molly Wallis APRN [...] 29 of acute hepatitis PHYSICAL EXAM Vitals: 11/29/21 1301 BP: 139/58 BP Location (NBP): Right arm Patient Position: Sitting BP Cuff Sizes: Adult (25-34 cm) Pulse: (!) 103 Weight: 61.6 kg (135 lb 14.4 oz) Height: 154.9 cm (5' 0.98) Body mass index is 25.69 kg/m??. Exam: Appears well. No apparent distress. Lab Results Component Value Date WBC 8.5 11/29/2021 HGB 13.6 11/29/2021 HCT 40.2 11/29/2021 MCV 90.5 11/29/2021 PLATELET 93 (L) 11/29/2021 Recent Labs 11/29/21 1104 INR 1.2 Chemistry Component Value Date/Time NA 140 11/29/2021 1104 K 4.2 11/29/2021 1104 CL 101 11/29/2021 1104 CO2 27 11/29/2021 1104 BUN 18 11/29/2021 1104 CREATININE 0.64 (L) 11/29/2021 1104 Component Value Date/Time CALCIUM 11.0 (H) 11/29/2021 1104 ALKPHOS 100 11/29/2021 1104 AST 32 (H) 11/29/2021 1104 ALT 39 (H) 11/29/2021 1104 BILITOT 0.9 11/29/2021 1104 MELD-Na score: 8 at 11/29/2021 11:04 AM MELD score: 8 at 11/29/2021 11:04 AM Calculated from: Serum Creatinine: 0.64 mg/dL (Using min of 1 mg/dL) at 11/29/2021 11:04 AM Serum Sodium: 140 mmol/L (Using max of 137 mmol/L) at 11/29/2021 11:04 AM Total Bilirubin: 0.9 mg/dL (Using min of 1 mg/dL) at 11/29/2021 11:04 AM INR(ratio): 1.2 at 11/29/2021 11:04 AM Age: 81 years EGD 09/26/2020: Impression: ?- Small (< 5 mm) esophageal varices. ?- Mild antral gastritis. ?- Normal examined duodenum. ?- No specimens collected. Recommendation: ?- Discharge patient to home. ?- Resume previous diet. ?- Return to liver clinic. ? - Repeat upper endoscopy in 1 year ?for surveillance. Ultrasound 11/29/2021: IMPRESSION ?? 1. Stable interval examination. Hepatomegaly, coarsened parenchyma with capsular nodularity from known cirrhosis. Stable small calcification and hemangioma within the left lobe. No new or concerning focal lesion. 2. Gallbladder surgically absent. No intra or extrahepatic biliary ductal dilation. 3. No ascites. ?? Electronically signed by: Avila Keith MD, [facility] ([phone]), at 11/29/2021 10:23 AM ?? ASSESSMENT/PLAN Milka Mendieta is a 81 y.o. 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 1. Cirrhosis. Diagnosed by fibroscan. Well compensated. MELD 7. 2. BA. Her metabolic risks include diabetes, hypertension, elevated cholesterol, overweight. She has been working on her weight and blood sugar and these have both improved. 3. Portal hypertension. EGD done 09/2020 with small varices, stable from year prior. She is due for repeat EGD. Orders were placed 05/2021 but not yet scheduled. Will place new orders. 4. HCC surveillance. US today with no new lesions. Can repeat US in 6 months. 5. Hepatic encephalopathy. Has some difficulty word finding, but doesn't feel like it's progressiveor any worse than at other times in her life. Will continue to monitor. 6. Lung nodule. Followed by PCP, we did not discuss today. 7. Preventative health. She should have annual flu vaccine. Plan: - Follow up in 6 months with labs, US and visit - EGD next available for varices surveillance. Molly Wallis APRN Section of Gastroenterology [place] [address] Copy: Salome Mcarthur APRN [address] / [place] [address] Time spent reviewing records prior to this [...] 02/06/2024 11:30 AM EDT [place] [phone] [facility] [place] [address] 02/06/2024 12:15 PM EDT Laboratory Appointment Lab [place] [address] 02/06/2024 1:30 PM EDT Office [place] [address] [facility] [place] [address] Scheduled Orders Name Type Priority Associated Diagnoses Orde r Schedule ENDOSCOPY CASE REQUEST: EGD, UPPER GI ENDOSCOPY Procedures Routine Hepatic cirrhosis, unspecified hepatic cirrhosis type, unspecified whether ascites present Ordered: 11/29/2021 documented as of this encounter Results * (ABNORMAL) Prothrombin Time (06/06/2022 12:46 PM EST) Prothrombin Time 12.9(H) 9.4 - 12.5 sec [facility] International Normalization Ratio 1.1 [facility] Comment: An INR <2.0 indicates [...] Lab Molly Wallis APRN HEMATOLOGY ORDERAB LES [facility] [place] [address] * (ABNORMAL) Comprehensive metabolic panel (non-fasting) (06/06/2022 12:46 PM EST) Glucose 107 65 - 199 mg/dL [facility] Comment:Diabetes: >=200 mg/d L plus symptoms Blood Urea Nitrogen 15 8 - 18 mg/dL [facility] Creatinine 0.66(L) 0.70 - 1.20 mg/dL [facility] Sodium 141 135 - 145 mmol/L [facility] Potassium 4.2 3.5 - 5.0 mmol/L [facility] Comment: Please note: ??Patients with WBC >100,000 may have falsely elevated Potassium levels. ??For accurate Potassium quantification in these patients send serum separator tube (gold top) for subsequent determinations. ??Contact the Clinical Chemistry Laboratory if there are any questions. Chloride 104 98 - 107 mmol/L [facility] Carbon Dioxide 27 22 - 31 mmol/L [facility] Anion Gap 10 5 - 15 mmol/L [facility] Calcium 10.4 8.5 - 10.5 mg/dL [facility] Protein, Total 6.9 6.1 - 8.0 g/dL [facility] Albumin 4.3 3.2 - 5.2 g/dL [facility] Aspartate Aminotransferase 33(H) 0 - 30 unit/L [facility] Alanine Aminotransferase 34(H) 0 - 30 unit/L [facility] Alkaline Phosphatase 98 35 - 105 unit/L [facility] Bilirubin, Total 0.6 0.2 - 1.3 mg/dL [facility] Est Glomerular Filtration Rate 89 >=60 mL/min/1. 73 m?? [facility] Comment: This patient's estimated GFR [...] Lab Molly Wallis APRN CHEMISTRY ORDERABL ES [facility] [place] [address] * US Abdomen Limited Hepatology Protocol (06/06/2022 [...] cm. Similar to prior. 4. No ascites. Electronically signed by: Avila Keith MD, [facility] ([phone]), at 06/06/2022 11:48 AM Thank you for letting us participate in the care of this patient. If you are a health care provider and have any questions regarding this report, please contact the number above. For patients who have questions, please contact the health health care marketing manager that requested your imaging first. ? Avila Keith, Staff Physician Electronically Signed Final Report ?? 06/06/2022 11:54 am Narrative 06/06/2022 11:55 AM EST Abdominal ? (Signed Final 06/06/2022 11:54 am) PATIENT INFO: ID #: ? [id number] ?: ??[birth year] (81 yrs)(F) Name: ? MILKA MENDIETA ?Visit Date: 06/06/2022 11:20 am PERFORMED BY: Attending: ?Avila Keith MD Performed By: ? Sosa Joshi RDMS Referred By: ?MOLLY WALLIS Secondary Phy.: ?? MOLLY WALLIS HOSPICE CLINICAL MANAGER Location: ? [place] SERVICE(S) PROVIDED: [facility] - Hepatology Protocol - Abdominal ?77030 Limited Survey Single Organ or Quadrant - [id number] INDICATIONS: cirrhosis, screen for hcc ------ LIVER: [...] 06/06/2022 11:54 am) PATIENT INFO: ID #: [id number] : [birth year] (81 yrs)(F) Name: MILKA MENDIETA Visit Date: 06/06/2022 11:20 am PERFORMED BY: Attending: Avila Keith MD Performed By: Sosa Joshi RDMS Referred By: MOLLY WALLIS Secondary Phy.: MOLLY WALLIS APRN Location: [place] SERV[facility]S) [facility] Hep[facility] Protocol - Abdominal 30450 Limited Survey Single Organ or Quadrant - [id number] INDICATIONS: cirrhosis, screen for hcc ------ LIVER: [...] cm. Similar to prior. 4. No ascites. Electronically signed by: Avila Keith MD, [facility] ([phone]), at 06/06/2022 11:48 AM Thank you for letting us participate in the care of this patient. If you are a health care provider and have any questions regarding this report, please contact the number above. For patients who have questions, please contact the health health care marketing manager that requested your imaging first. Avila Keith, Staff Physician Electronically Signed Final Report 06/06/2022 11:54 am Molly Wallis APRN IMG US GEN ORDERAB LES documented in this encounter Visit Diagnoses Diagnosis Hepatic cirrhosis, unspecified hepatic cirrhosis type, unspecified whether ascites present Hepatic cirrhosis, unspecified hepatic cirrhosis type, unspecified whether ascites present documented in this encounter Care Teams Boatswain Mate Relationship Specialty Start Date End Date Salome Mcarthur APRN [address] [place] [address] PCP - General Family Medicine 05/30/15 documented as of this encounter
--- OUTSIDE RECORDS SUMMARY | 2023-12-02 18:34 | XMS_ITS | Encounter Summary ---
Author Organization [facility] Address [facility] [place] [address] Care Team Providers Care Quality Control Projectionist Name Role Phone Salome Mcarthur APRN Primary Care Provider [phone] Encounter Details Date Type Department Care Team (Late st Contact Info) Description 01/08/2023 Telephone Gastroenterology at [facility] [place] [phone] KyleJuly Social History Tobacco Use Types Packs/Day [...] encounter Miscellaneous Notes * Telephone Encounter - KyleJuly - 01/08/2023 12:22 PM EDT Milka Corbett [id number] Diagnosis/Indication: cirrhosis with varices Please review patient chart to confirm if [...] SCHEDULING QUESTIONS (ask all patient these questions) Have you ever had a/an Upper Endoscopy before? Yes: Date 01/31/22 If yes, did you have any problems with the procedure (such as waking up during the procedure, pain or difficulties afterwards, etc.)? No What type of sedation was used: IV Conscious Sedation Do you take any blood thinners or have you been diagnosed with a bleeding disorder that increases your risk of bleeding with procedures? No Do you have a Pacemaker or Defibrillator device? If yes, send pool message to Cardiology with patient information and date or procedure. No Are you a diabetic? If yes, call PCP/managing provider to discuss use of prep and any questions or concerns related to. Yes: Controlled by diet or medication? Medication Do you take any iron supplements or vitamins that contain iron? No Do you have a preference regarding the gender of your provider? No ANESTHESIA QUESTIONS (YES to any question, please book with Anesthesia support) Have you ever been diagnosed with Pulmonary Hypertension and/or Congential Heart Disease? No Have you been diagnosed with A-Fib (atrial fibrillation) that is NOT being well controled with medications? No Have you ever had an allergic or adverse reaction to Fentanyl or Versed? No Have you had a problem with sedation or anesthesia? (Waking up during procedure, extreme confusion after, etc.) No Do you have a diagnosis of Obstructive Sleep Apnea that requires the use of a c- pap machine? No Do you use an oxygen tank at home? No Do you use a rescue inhaler more than twice per day? (COPD, severe asthma) No Do you experience breathing problems when you lay flat for a period of time? No Do you take prescription narcotic pain medications, including suboxone or methodone? No SCHEDULING CONFIRMATIONS: Please note any and all parts of your conversation with the patient here. We offer all new patients an opportunity to have an appointment with one of our associate care providers to learn more about your upcoming procedure, ask questions and get answers. These appointmentsare offered via telehealth. Would you be interested in scheduling this appointment? (Only ask if NEW referral patient; skip this question if [facility] provider ordered the procedure.) No Is there any other information or concerns you would like to us to share with your care team in relation to your upcoming scheduled procedure? No You must have a responsible constitution party who will drive you to your procedure, stay on campus for the entire duration of your procedure, and drive you home from your procedure. Who will likely be your steam train driver for the procedure? *Please Verify the height and weight, and adjust if height and/or weight have changed* Estimated body mass index is 26.38 kg/m?? as calculated from the following: Height as of 12/05/22: 154.9 cm (5' 1). Weight as of 12/05/22: 63.3 kg (139 lb 9.6 oz). Age:82 y.o. documented in this encounter Plan of Treatment Upcoming Encounters Date Type Department Care Team (Late st Contact Info) Description 02/06/2024 11:30 AM EDT Appointment [place] [address] Molly Cui, [facility] [place] [address] 02/06/2024 12:15 PM EDT Laboratory Appointment Lab [address] [place] [address] 02/06/2024 1:30 PM EDT Office Visit [place] [phone] Molly Cui, [facility] [place] [address] documented as of this encounter Visit Diagnoses Not on filedocumented in this encounter Care Teams Quality Control Projectionist Relationship Specialty Start Date End Date Salome Mcarthur APRN [address] [place] [address] PCP - General Family Medicine 05/30/15 documented as of this encounter
--- OUTSIDE RECORDS SUMMARY | 2023-12-02 18:35 | XMS_ITS | Encounter Summary ---
Author Organization [facility] [place] [address] Care Team Providers Care Attraction Attendant Name Role Phone Salome Mcarthur APRN Primary Care Provider [phone] Encounter Details Date Type Department Care Team (Late st Contact Info) Description 07/15/2018 Orders [place] [phone] Crista Kyle Social History Tobacco Use Types Packs/Day Years [...] 11:30 AM EDT Appointment [place] [address] Molly Cui FUNDRAISING ASSISTANT [facility] GASTROENTEROLOGY [place], [place] [id number] 02/06/2024 12:15 PM EDT Laboratory Appointment Lab [address] [place] [address] 02/06/2024 1:30 PM EDT Office [place] [address] Molly Cui FUNDRAISING ASSISTANT [facility] [place] [address] documented as of this encounter Visit Diagnoses Not on filedocumented in this encounter Care Teams Attraction Attendant Relationship Specialty Start Date End Date Salome Mcarthur APRN [address] [place] [address] PCP - General Family Medicine 05/30/15 documented as of this encounter
--- OUTSIDE RECORDS SUMMARY | 2023-12-02 18:35 | XMS_ITS | Encounter Summary ---
Author Organization [facility] [place] [address] Care Team Providers Care Brick Kiln Burner Name Role Phone Salome Mcarthur APRN Primary Care Provider [phone] Encounter Details Date Type Department Care Team (Late st Contact Info) Description 09/10/2018 Telephone Cardiology at [address] [address] Laura Pike Social History Tobacco Use Types Packs/Day Years [...] encounter Miscellaneous Notes * Telephone Encounter - Laura Pike - 09/11/2018 12:50 PM EDT Cardiology Encounter created in error 09/10/18.~jhd (Gastroenterology and Hepatology) documented in this encounter Plan of Treatment Upcoming Encounters Date Type Department Care Team (Late st Contact Info) Description 02/06/2024 11:30 AM EDT Appointment [place] [address] Molly Cui APRN [facility] [place] [address] 02/06/2024 12:15 PM EDT Laboratory Appointment Lab [address] [place] [address] 02/06/2024 1:30 PM EDT Office Visit [place] [address] Molly Cui APRN [facility] [place] [address] documented as of this encounter Visit Diagnoses Not on filedocumented in this encounter Care Teams Brick Kiln Burner Relationship Specialty Start Date End Date Salome Mcarthur, LORETO [address] [place] [address] PCP - General Family Medicine 05/30/15 documented as of this encounter
--- OUTSIDE RECORDS SUMMARY | 2023-12-02 18:35 | XMS_ITS | Encounter Summary ---
Author Organization [facility] [place] [address] Care Team Providers Care Screen And Cyclone Repairer Name Role Phone Salome Mcarthur APRN Primary Care Provider [phone] Reason for Referral * Diagnostic Test (Routine) - Closed Specialty Diagnoses / Procedures Referred By Contac t Referred To Contact Radiology Diagnoses Hepatic cirrhosis, unspecified hepatic cirrhosis type, unspecified whether ascites present Procedures MRI Abdomen wwo Contrast (Generic) Molly Cui APRN [facility] [address] [place] [address] Referral ID Status Reason Start Date Expiration Date V isits Requested Visits Authorized [id number] Closed Specialty Service Requested 03/12/2019 03/11/2020 1 1 Reason for Visit * Diagnostic Test (Routine) - Closed Specialty Diagnoses / Procedures Referred By Contac t Referred To Contact Radiology Diagnoses Hepatic cirrhosis, unspecified hepatic cirrhosis type, unspecified whether ascites present Procedures MRI Abdomen wwo Contrast (Generic) Molly Cui APRN [facility] [place] [address] [place] [address] Referral ID Status Reason Start Date Expiration Date V isits Requested Visits Authorized [id number] Closed Specialty Service Requested 03/12/2019 03/11/2020 1 1 Encounter Details Date Type Department Care Team (Latest Contact Info) Description 10/29/2019 3:21 PM EDT - 10/29/2019 11:59 PM EDT Hospital Encounter MRI at [facility] [place] [address] Molly Cui APRN [facility] [place] [address] Hepatic cirrhosis, unspecified hepatic cirrhosis type, unspecified [...] once a day for kidney protection 06/06/2009 fluticasone propionate (FLONASE) 50 mcg/actuation [place], Suspension 1 spray daily. pramipexole (MIRAPEX) 0.125 [...] 02/06/2024 11:30 AM EDT [place] [phone] Molly Cui APRN [facility] [place] [address] 02/06/2024 12:15 PM EDT Laboratory Appointment Lab [address] [place] [phone] 02/06/2024 1:30 PM EDT Office [place] [phone] Molly Cui APRN [facility] [place] [address] documented as of this encounter Procedures Procedure Name Priority Date/Time Associated Diagnosis Comments MRI ABDOMEN WWO CONTRAST Routine 10/29/2019 4:30 PM EDT Hepatic cirrhosis, unspecified hepatic cirrhosis type, unspecified whether ascites present documented in this encounter Results * MRI Abdomen wwo Contrast (Generic) (10/29/2019 4:30 PM EDT) Anatomical Region Laterality Modality Abdomen Magnetic Resonan ce Impressions 10/30/2019 2:53 PM EDT 1. ??Hepatomegaly with nodularity and reticular pattern suggestive of cirrhosis and fibrosis. 2. ??No suspicious hepatic lesion. 3. ??Unchanged left lower lobe pulmonary nodule, previously characterized on chest CT. LI-RADS Categories: LR-TIV = Tumor in vein LR-5 = Definitely hepatocellular carcinoma (concordant with OPTN 5) LR-4 = Probably hepatocellular carcinoma LR-3 = Intermediate probability for hepatocellular carcinoma LR-2 = Probably benign LR-1 = Definitely benign LR-TR Viable = Treated, probably or definitely viable LR-TR Equivocal = Treated, equivocal viable LR-TR Nonviable = Treated, probably or definitely not viable LR-TR Nonevaluable = Treated, Response not evaluable (due to image omission or degradation) LR-M = Probably or definitely malignant but not HCC specific LR-NC = Not categorizable (due to image omission or degradation) NOTE: LI-RADS categories should be interpreted in the context of other available data, such as biomarkers and the patient's prior probability of developing or having hepatocellular carcinoma. The LI-RADS / OPTN classification of liver lesions has been adopted to standardize CT and MRI scan reporting in patients at risk for hepatocellular carcinoma. The imaging criteria for definite hepatocellular carcinoma are concordant for the LI-RADS and OPTN systems. LI-RADS criteria and documentation are available online at https://www.acr.org/Clinical-Resources/Cstlhoual-gte-Iwui-Systems/LI-RADS. This report utilizes LI-RADS version 2018. I have personally reviewed the image(s) and the resident's interpretation and agree with the findings, Mat House at 10/30/2019 2:53 PM Thank you for letting us participate in the care of this patient. For questions regarding this report, please contact the number below. ? Narrative 10/30/2019 2:53 PM EDT EXAMINATION: MRI ABDOMEN WWO CONTRAST (GENERIC) CLINICAL HISTORY: Liver disease, chronic, HCC screening Cirrhosis, evaluate for HCC. Difficult to visualize liver on ultrasound TECHNIQUE: MRI of the abdomen was performed with images obtained prior to and following the intravenous administration of 13ml of Dotarem using the dynamic liver protocol. COMPARISONS: MR abdomen 09/10/2018 FINDINGS: Lower lung: Unchanged left lower lobe nodule. Prior hepatic interventions: None. Liver Morphology: Nodular hepatic contour, consistent with cirrhosis. Persistent hepatomegaly, measuring 22 cm in craniocaudal dimension. Mild loss of signal on out of phase imaging consistent with hepatic steatosis. Focal hepatic lesions: None. Stable reticular enhancement in the subcapsular inferior right lower lobe. No focal hypervascular mass. Portal Vein: Widely Patent. Varices: Small recanalized umbilical vein. Ascites: None. Spleen: Stable enlargement measuring 13 cm. No focal lesion. Bile ducts: Nondilated. Gallbladder: Removed. Pancreas: Normal. Adrenals: Normal. Kidneys: Normal. Aorta: No aneurysm. Focal atherosclerotic plaque of the infrarenal aorta, unchanged. Lymph nodes: No enlarged lymph nodes. Bowel: Nondilated, no inflammatory changes. Marrow Signal: Normal. Procedure Note Mat House MD - 10/30/2019 EXAMINATION: MRI ABDOMEN WWO CONTRAST (GENERIC) CLINICAL HISTORY: Liver disease, chronic, HCC screening Cirrhosis, evaluate for HCC. Difficult to visualize liver on ultrasound TECHNIQUE: MRI of the abdomen was performed with images obtained prior toand following the intravenous administration of 13ml of Dotarem using thedynamic liver protocol. COMPARISONS: MR abdomen 09/10/2018 FINDINGS: Lower lung: Unchanged left lower lobe nodule. Prior hepatic interventions: None. Liver Morphology: Nodular hepatic contour, consistent with cirrhosis.Persistent hepatomegaly, measuring 22 cm in craniocaudal dimension. Mild loss ofsignal on out of phase imaging consistent with hepatic steatosis. Focal hepatic lesions: None. Stable reticular enhancement in the subcapsular inferior right lower lobe.No focal hypervascular mass. Portal Vein: Widely Patent. Varices: Small recanalized umbilical vein. Ascites: None. Spleen: Stable enlargement measuring 13 cm. No focal lesion. Bile ducts: Nondilated. Gallbladder: Removed. Pancreas: Normal. Adrenals: Normal. Kidneys: Normal. Aorta: No aneurysm. Focal atherosclerotic plaque of the infrarenalaorta, unchanged. Lymph nodes: No enlarged lymph nodes. Bowel: Nondilated, no inflammatory changes. Marrow Signal: Normal. IMPRESSION 1. Hepatomegaly with nodularity and reticular pattern suggestive ofcirrhosis and fibrosis. 2. No suspicious hepatic lesion. 3. Unchanged left lower lobe pulmonary nodule, previously characterizedon chest CT. LI-RADS Categories: LR-TIV = Tumor in vein LR-5 = Definitely hepatocellular carcinoma (concordant with OPTN 5) LR-4 = Probably hepatocellular carcinoma LR-3 = Intermediate probability for hepatocellular carcinoma LR-2 = Probably benign LR-1 = Definitely benign LR-TR Viable = Treated, probably or definitely viable LR-TR Equivocal = Treated, equivocal viable LR-TR Nonviable = Treated, probably or definitely not viable LR-TR Nonevaluable = Treated, Response not evaluable (due to imageomission or degradation) LR-M = Probably or definitely malignant but not HCC specific LR-NC = Not categorizable (due to image omission or degradation) NOTE: LI-RADS categories should be interpreted in the context of otheravailable data, such as biomarkers and the patient's prior probability of developingor having hepatocellular carcinoma. The LI-RADS / OPTN classification ofliver lesions has been adopted to standardize CT and MRI scan reporting inpatients at risk for hepatocellular carcinoma. The imaging criteria for definite hepatocellular carcinoma are concordant for the LI-RADS and OPTNsystems. LI-RADS criteria and documentation are available online at https://www.acr.org/Clinical-Resources/Smeqxizej-aqo-Srgi-Systems/LI-RADS.This report utilizes LI-RADS version 2018. I have personally reviewed the image(s) and the resident's interpretationand agree with the findings, Mat House at 10/30/2019 2:53 PM Thank you for letting us participate in the care of this patient. Forquestions regarding this report, please contact the number below. Molly Cui APRN IMG MRI ORDERABLES documented in this encounter Visit Diagnoses Diagnosis Hepatic cirrhosis, unspecified hepatic cirrhosis type, unspecified whether ascites present documented in this encounter Administered Medications Inactive Administered Medications - up to 3 most recent administrations Medication Order MAR Action Action Date Dose Rate Site gadoterate meglumine (DOTAREM) 0.5 mmol/mL (376.9 mg/mL) injection 12.88 mL 12.88 mL (0.2 mL/kg/dose ? 64.4 kg), Intravenous, ONCE PRN, 1 dose, Starting on Melissa 10/29/19 at 2024, Until Melissa 10/29/19 at 2024, Per Protocol, Routine Given 10/29/2019 8:25 PM EDT 13 mLs documented in this encounter Care Teams Screen And Cyclone Repairer Relationship Specialty Start Date End Date Salome Mcarthur APRN [address] [place] [address] PCP - General Family Medicine 05/30/15 documented as of this encounter
--- OUTSIDE RECORDS SUMMARY | 2023-12-02 18:35 | XMS_ITS | Encounter Summary ---
Author Organization [facility] Address [facility] [place] [address] Care Team Providers Care Currency Machine Operator Name Role Phone Salome Mcarthur APRN Primary Care Provider [phone] Encounter Details Date Type Department Care Team (Latest Contact Info) Description 03/12/2019 11:30 AM EST Laboratory Appointment Lab [address] [place] [phone] Hepatic cirrhosis, unspecified hepatic cirrhosis type, unspecified [...] 02/06/2024 11:30 AM EDT [place] [phone] Molly Cui [employer] [facility] [place] [address] 02/06/2024 12:15 PM EDT Laboratory Appointment Lab [address] [place] [phone] 02/06/2024 1:30 PM EDT Office [place] [phone] [facility] [place] [address] documented as of this encounter Procedures Procedure Name Priority Date/Time Associated Diagnosis Comments HEMOGRAM Routine 03/12/2019 11:39 AM EST Hepatic cirrhosis, unspecified hepatic cirrhosis type, unspecified whether ascites present DIFFERENTIAL, AUTOMATED Routine 03/12/2019 11:39 AM EST Hepatic cirrhosis, unspecified hepatic cirrhosis type, unspecified whether ascites present HC VENIPUNCTURE Routine 03/12/2019 11:39 AM EST Hepatic cirrhosis, unspecified hepatic cirrhosis type, unspecified whether ascites present HC CBC,PLT & AUTO DIFF Routine 9 11:39 AM EST Hepatic cirrhosis, unspecified hepatic cirrhosis type, unspecified whether ascites present COMPREHENSIVE METABOLIC PANEL Routine 03/12/2019 11:39 AM EST Hepatic cirrhosis, unspecified hepatic cirrhosis type, unspecified whether ascites present documented in this encounter Results * Differential, Automated (03/12/2019 11:39 AM EST) Neutrophil % 57.5 % [facility] Neutrophil Absolute 4.18 1.70 - 6.10 x10(3)/[facility] LAB[facility] Lymph % 31.5 % [facility] Lymphocytes Abs 2.3 0.9 - 3.2 x10(3)/[facility] LABOR[facility] Monocyte % 7.9 % [facility] Monocyte Abs 0.6 0.3 - 0.9 x10(3)/[facility]OR[facility] Eos % 2.1 % [facility] Eosinophils Abs 0.2 0.0 - 0.4 x10(3)/[facility] Basophil % 0.7 % [facility] Baso Absolute 0.0 0.0 - 0.1 x10(3)/[facility] LABORATORY Immature Gran % 0.30 % [facility] Comment: Immature granulocytes(IG's)percentage and absolute count will include metamyelocytes, myelocytes, and promyelocytes. Blood smears from CBCs yielding IG's will be scanned manually for concordance. If this scan disagrees with the automated IG or if promyelocytes are noted, a manual differential will be performed. Immature Gran Absolute 0.02 0.00 - 0.04 x10(3)/mcL [facility] Blood specimen (specimen) 03/12/2019 11:39 AM EST 03/12/2019 11:54 AM EST Narrative Resulting Agency Comment Spec In Lab Molly Cui APRN HEMATOLOGY ORDERAB LES [facility] [place] [address] * (ABNORMAL) Hemogram (03/12/2019 11:39 AM EST) White Blood Cell 7.3 4.0 - 9.5 x10(3)/mc L [facility] Red Blood Cell 4.50 4.00 - 5.21 x10(6)/mc L [facility] Hemoglobin 13.8 11.7 - 15.5 gm/dL [facility] Hematocrit 41.2 35.7 - 45.8 % [facility] Mean Cell Volume 91.6 82.6 - 94.4 fL [facility] Mean Cell Hemoglobin 30.7 27.1 - 32.0 pg [facility] Mean Cell Hemoglobin Concentration 33.5 31.7 - 35.0 gm/dL [facility] Platelet 122(L) 145 - 357 x10(3)/mc L [facility] RDW Standard Deviation 43.8 37.0 - 46.0 fL [facility] RDW coefficient of variation 13.2 11.5 - 14.1 % [facility] Mean Platelet Volume 11.9 7.6 - 12.9 fL [facility] NRBC% auto 0.0 % [facility] NRBC Absolute 0.000 0.000 - 0.000 x10(3)/mc L [facility] Blood specimen (specimen) 03/12/2019 11:39 AM EST 03/12/2019 11:54 AM EST Narrative Resulting Agency Comment Spec In Lab Mollyjuan a Cui [employer] WORKER HEMATOLOGY ORDERAB LES Performing Organization Address City/State/[facility] Co de Phone Number [facility] [place] [address] * (ABNORMAL) Comprehensive metabolic panel (non-fasting) (03/12/2019 11:39 AM EST) Glucose 156 65 - 199 mg/dL [facility] Comment:Diabetes: >=200 mg/d L plus symptoms Blood Urea Nitrogen 19(H) 8 - 18 mg/dL [facility] Creatinine 0.64(L) 0.70 - 1.20 mg/dL [facility] Sodium 143 135 - 145 mmol/L [facility] Potassium 4.1 3.5 - 5.0 mmol/L [facility] Comment: Please note: ??Patients with WBC >100,000 may have falsely elevated Potassium levels. ??For accurate Potassium quantification in these patients send serum separator tube (gold top) for subsequent determinations. ??Contact the Clinical Chemistry Laboratory if there are any questions. Chloride 102 98 - 107 mmol/L [facility] Carbon Dioxide 26 22 - 31 mmol/L [facility] Anion Gap 15 5 - 15 mmol/L [facility] Calcium 10.1 8.5 - 10.5 mg/dL [facility] Protein, Total 7.9 6.1 - 8.0 gm/dL [facility] Albumin 4.4 3.2 - 5.2 gm/dL [facility] Aspartate Aminotransferase 29 0 - 30 unit/L [facility] Alanine Aminotransferase 27 0 - 30 unit/L [facility] Alkaline Phosphatase 91 35 - 105 unit/L [facility] Bilirubin, Total 0.6 0.2 - 1.3 mg/dL [facility] Est Glomerular Filtration Rate 86 >=60 mL/min/1. 73 m?? [facility] Comment: The eGFR was calculated using the CKD-EPI equation. As with all creatinine based estimates of kidney function, eGFR values calculated with the CKD-EPI equation are not accurate in patients with acute kidney failure, extremes of body mass or the acutely ill. http://Seaters/[facility] eGFR 100 >=60 mL/min/1. 73 m?? [facility] Comment: The eGFR was calculated using the CKD-EPI equation. As with all creatinine based estimates of kidney function, eGFR values calculated with the CKD-EPI equation are not accurate in patients with acute kidney failure, extremes of body mass or the acutely ill. http://Seaters/[facility] TULSAnkf Blood specimen (specimen) 03/12/2019 11:39 AM EST 03/12/2019 11:53 AM EST Narrative Resulting Agency Comment Spec In Lab Molly Cui APRN CHEMISTRY ORDERABL ES [facility] [place] [address] * (ABNORMAL) Prothrombin Time (03/12/2019 11:39 AM EST) Prothrombin Time 13.5(H) 9.4 - 12.5 sec [facility] International Normalization Ratio 1.2 [facility] Comment: An INR <2.0 [...] be appropriate depending on clinical circumstances. Blood specimen (specimen) 03/12/2019 11:39 AM EST 03/12/2019 11:53 AM EST Narrative Resulting Agency Comment Spec In Lab Molly A [place] [employer] WORK[employer] HEMATOLOGY ORDERAB LES [facility] [place] [address] documented in this encounter Visit Diagnoses Diagnosis Hepatic cirrhosis, unspecified hepatic cirrhosis type, unspecified whether ascites present documented in this encounter Care Teams Currency Machine Operator Relationship Specialty Start Date End Date Salome Mcarthur, LITHOPONE MILL WORKER [address] [place] [address] PCP - General Family Medicine 05/30/15 documented as of this encounter
--- OUTSIDE RECORDS SUMMARY | 2023-12-02 18:35 | XMS_ITS | Encounter Summary ---
Author Organization Formerly [facility], Later [facility] Address [facility] [place] [address] Care Team Providers Care Food And Nutrition Services Supervisor Name Role Phone Salome Mcarthur APRN Primary Care Provider [phone] Encounter Details Date Type Department Care Team (Latest Contact Info) Description 10/29/2019 3:15 PM EDT Laboratory Appointment Lab [address] [place] [phone] Hepatic cirrhosis, unspecified hepatic cirrhosis type, unspecified [...] 02/06/2024 11:30 AM EDT Appointment [place] [phone] Molly Cui WATCH CRYSTAL GRINDER [facility] [place] [address] 02/06/2024 12:15 PM EDT Laboratory Appointment Lab [address] [place] [phone] 02/06/2024 1:30 PM EDT Office Visit [place] [phone] Molly Cui APRN [facility] [place] [address] documented as of this encounter Procedures Procedure Name Priority Date/Time Associated Diagnosis Comments HEMOGRAM Routine 10/29/2019 3:13 PM EDT Hepatic cirrhosis, unspecified hepatic cirrhosis type, unspecified whether ascites present DIFFERENTIAL, AUTOMATED Routine 10/29/2019 3:13 PM EDT Hepatic cirrhosis, unspecified hepatic cirrhosis type, unspecified whether ascites present HC ALPHA FETOPROTEIN TUMOR MARKER Routine 10/29/2019 3:13 PM EDT Hepatic cirrhosis, unspecified hepatic cirrhosis type, unspecified whether ascites present HC VENIPUNCTURE Routine 10/29/2019 3:13 PM EDT Hepatic cirrhosis, unspecified hepatic cirrhosis type, unspecified whether ascites present HC CBC,PLT & AUTO DIFF Routine 0 3:13 PM EDT Hepatic cirrhosis, unspecified hepatic cirrhosis type, unspecified whether ascites present COMPREHENSIVE METABOLIC PANEL Routine 10/29/2019 3:13 PM EDT Hepatic cirrhosis, unspecified hepatic cirrhosis type, unspecified whether ascites present documented in this encounter Results * Differential, Automated (10/29/2019 3:13 PM EDT) Neutrophil % 55.9 % [facility] Neutrophil Absolute 4.08 1.70 - 6.10 x10(3)/[facility] Lymph % 33.9 % [facility] Lymphocytes Abs 2.5 0.9 - 3.2 x10(3)/[facility] Monocyte % 7.9 % [facility] Monocyte Abs 0.6 0.3 - 0.9 x10(3)/[facility] Eos % 1.9 % [facility] Eosinophils Abs 0.1 0.0 - 0.4 x10(3)/[facility] Basophil % 0.3 % [facility] Baso Absolute 0.0 0.0 - 0.1 x10(3)/[facility] Immature Gran % 0.10 % [facility] Comment: Immature granulocytes(IG's)percentage and absolute count will include metamyelocytes, myelocytes, and promyelocytes. Blood smears from CBCs yielding IG's will be scanned manually for concordance. If this scan disagrees with the automated IG or if promyelocytes are noted, a manual differential will be performed. Immature Gran Absolute 0.01 0.00 - 0.04 x10(3)/[facility] Blood specimen (specimen) 10/29/2019 3:13 PM EDT 10/29/2019 3:22 PM EDT Narrative Resulting Agency Comment Spec In Lab Molly Cui APRN HEMATOLOGY ORDERAB LES Performing Organization Address City/State/[facility] Co de Phone Number [facility] [place] [address] * (ABNORMAL) Hemogram (10/29/2019 3:13 PM EDT) White Blood Cell 7.3 4.0 - 9.5 x10(3)/[facility] LAB[facility] Red Blood Cell 4.42 4.00 - 5.21 x10(6)/ L [facility] Hemoglobin 13.5 11.7 - 15.5 gm/dL [facility] Hematocrit 40.5 35.7 - 45.8 % [facility] Mean Cell Volume 91.6 82.6 - 94.[address] [facility] Mean Cell Hemoglobin 30.5 27.1 - 32.[address] [facility] Mean Cell Hemoglobin Concentration 33.3 31.7 - 35.0 gm/dL [facility] Platelet 122(L) 145 - 357 x10(3)/ L [facility] RDW Standard Deviation 43.3 37.0 - 46.[address] [facility] RDW coefficient of variation 12.9 11.5 - 14.1 % [facility] Mean Platelet Volume 11.3 7.6 - 12.[address] [facility] NRBC% auto 0.0 % [facility] NRBC Absolute 0.000 0.000 - 0.000 x10(3)/mc L [facility] Blood specimen (specimen) 10/29/2019 3:13 PM EDT 10/29/2019 3:22 PM EDT Narrative Resulting Agency Comment Spec In Lab Molly Cui APRN HEMATOLOGY ORDERAB LES [facility] [place] [address] * (ABNORMAL) Comprehensive metabolic panel (non-fasting) (10/29/2019 3:13 PM EDT) Glucose 116 65 - 199 mg/dL [facility] Comment:Diabetes: >=200 mg/d L plus symptoms Blood Urea Nitrogen 19(H) 8 - 18 mg/dL [facility] Creatinine 0.67(L) 0.70 - 1.20 mg/dL [facility] Sodium 140 135 - 145 mmol/L [facility] Potassium 4.2 3.5 - 5.0 mmol/L [facility] Comment: Please note: ??Patients with WBC >100,000 may have falsely elevated Potassium levels. ??For accurate Potassium quantification in these patients send serum separator tube (gold top) for subsequent determinations. ??Contact the Clinical Chemistry Laboratory if there are any questions. Chloride 98 98 - 107 mmol/L [facility] Carbon Dioxide 27 22 - 31 mmol/L [facility] Anion Gap 15 5 - 15 mmol/L [facility] Calcium 9.9 8.5 - 10.5 mg/dL [facility] Protein, Total 7.0 6.1 - 8.0 gm/dL [facility] Albumin 4.4 3.2 - 5.2 gm/dL [facility] Aspartate Aminotransferase 28 0 - 30 unit/L [facility] Alanine Aminotransferase 37(H) 0 - 30 unit/L [facility] Alkaline Phosphatase 73 35 - 105 unit/L [facility] Bilirubin, Total 0.6 0.2 - 1.3 mg/dL [facility] Est Glomerular Filtration Rate 84 >=60 mL/min/1. 73 m?? [facility] Comment: The eGFR was calculated using the CKD-EPI equation. As with all creatinine based estimates of kidney function, eGFR values calculated with the CKD-EPI equation are not accurate in patients with acute kidney failure, extremes of body mass or the acutely ill. [email or web address] eGFR 98 >=60 mL/min/1. 73 m?? [facility] Comment: The eGFR was calculated using the CKD-EPI equation. As with all creatinine based estimates of kidney function, eGFR values calculated with the CKD-EPI equation are not accurate in patients with acute kidney failure, extremes of body mass or the acutely ill. [email or web address] Blood specimen (specimen) 10/29/2019 3:13 PM EDT 10/29/2019 3:22 PM EDT Narrative Resulting Agency Comment Spec In Lab Molly Cui APRN CHEMISTRY ORDERABL ES Performing Organization Address City/[facility]/ZIP Co de Phone Number [facility] [place] [address] * AFP tumor marker (10/29/2019 3:13 PM EDT) Alpha Fetoprotein 2.9 <=8.3 ng/mL [facility] Blood specimen (specimen) 10/29/2019 3:13 PM EDT 10/29/2019 3:22 PM EDT Narrative Resulting Agency Comment Spec In Lab Molly Cui APRN CHEMISTRY ORDERABL ES [facility] [place] [address] * (ABNORMAL) Prothrombin Time (10/29/2019 3:13 PM EDT) Prothrombin Time 13.1(H) 9.4 - 12.[address] [facility] International Normalization Ratio 1.[address] [facility] Comment: An INR <2.0 indicates [...] depending on clinical circumstances. Blood specimen (specimen) 10/29/2019 3:13 PM EDT 10/29/2019 3:22 PM EDT Narrative Resulting Agency Comment Spec In Lab Molly Cui APRN HEMATOLOGY ORDERAB LES [facility] [place] [address] documented in this encounter Visit Diagnoses Diagnosis Hepatic cirrhosis, unspecified hepatic cirrhosis type, unspecified whether ascites present documented in this encounter Care Teams Food And Nutrition Services Supervisor Relationship Specialty Start Date End Date Salome Mcarthur APRN [address] [place] [address] PCP - General Family Medicine 05/30/15 documented as of this encounter
--- OUTSIDE RECORDS SUMMARY | 2023-12-02 18:35 | XMS_ITS | Encounter Summary ---
Author Organization [facility] [place] [address] Care Team Providers Care Veneer Joiner Name Role Phone Salome Mcarthur APRN Primary Care Provider [phone] Reason for Visit * Auth/Cert Specialty Diagnoses / Procedures Referred By Jose t Referred To Contact Diagnoses cirrhosis,screening for varices (IVCS) prep: proclear Procedures PRO UPPER GI ENDOSCOPY, DIAGNOSTIC EGD, UPPER GI ENDOSCOPY Referral ID Status Reason Start Date Expiration Date Visits Re quested Visits Authorized [id number] 1 1 Encounter Details Date Type Department Care Team (Late st Contact Info) Description 09/17/2018 11:30 AM EDT - 09/17/2018 12:00 PM EDT [place] [phone] Juliette Chauhan MD [facility] [place] [address] EGD, UPPER GI ENDOSCOPY (WRVU 2.09) Social [...] Sign Reading Time Taken Comments Blood Pressure 114/61 09/17/2018 11:10 AM EDT Pulse 98 09/17/2018 10:15 AM EDT Temperature 37.1 ??C (98.8 ??F) 09/17/2018 9:16 AM ED T Respiratory Rate 15 09/17/2018 10:50 AM EDT Oxygen Saturation 95% 09/17/2018 11:10 AM EDT Inhaled Oxygen Concentration - - Weight - - Height - - Body Mass Index - - documented in this encounter Discharge Instructions * Discharge Instructions* Leland Canchola RN - 09/17/2018 10:36 AM EDT UPPER GI ENDOSCOPY WHAT TO EXPECT AFTER THE PROCEDURE After the test you may feel a little more gassy or bloated than usual, this is normal. ACTIVITY Because of the sedation that you received Your judgement and reaction time are affected ?? Go home and rest quietly for the remainder of the day. You may resume your normal activities tomorrow. ?? Change from one position to the next slowly. You may lose your balance unexpectedly Be careful on stairs, as you may be unsteady on your feet. FOR THE NEXT 24 HRS ?? DO NOT DRIVE OR OPERATE ANY MACHINERY ?? DO NOT DRINK ALCOHOLIC BEVERAGES ?? DO NOT SIGN LEGAL DOCUMENTS ?? If you are a smoker: DO NOT SMOKE WHILE YOU ARE ALONE Diet ?? Start by eating small portions of foods that ordinarily will not upset your stomach. Be gentle with what you choose to start with. ?? Drink plenty of fluids ( unless otherwise told not to) Medications You may have a mild sore throat. Ice chips, popsicles, over the counter throat lozenges or spray may help numb your throat. This procedure should not cause a fever. IV SITE-- slight redness or tenderness is normal, you can use warm compresses if you get concerned.If the tenderness +/or redness increases or foul drainage and a red streak occurs, please contact your PCP immediately. WHEN SHOULD YOU CALL FOR HELP? Call 911 anytime you think that you need emergency care. For example, call if: You passed out (lost consciousness). You cough up blood. You vomit blood or what looks like coffee grounds. You pass maroon or very bloody stools. Call your healthcare provider or seek immediate medical attention if: You have trouble swallowing. You have belly pain. Your stools are black or tarlike or have streaks of blood. You are sick to your stomach or cannot keep fluids down. Watch closely for changes in your health, and be sure to contact your doctor IF Your throat still hurts after a day or two You do not get better as expected. Saturday-Saturday Same Day Endo [phone] 7a-8p Otherwise contact [phone] and ask to speak to the courier delivery driver addiction specialist Follow-up care is a palomo part of your treatment and safety. Be sure to make and go to all appointments, and call your doctor if you are having problems. Instructions have been reviewed and patient expresses understanding Please call [phone] before 8pm Sat-Sat with problems, questions or concerns. If you call after 8pm or on weekends, call the Hospital at [phone] and ask to speak to the Tearoom Hostess addiction specialist and the floor sanding machine operator will contact that person for you. UPPER GI ENDOSCOPY WHAT TO EXPECT AFTER THE PROCEDURE After the test you may feel a little more gassy or bloated than usual, this is normal. ACTIVITY Because of the sedation that you received Your judgement and reaction time are affected ?? Go home and rest quietly for the remainder of the day. You may resume your normal activities tomorrow. ?? Change from one position to the next slowly. You may lose your balance unexpectedly Be careful on stairs, as you may be unsteady on your feet. FOR THE NEXT 24 HRS ?? DO NOT DRIVE OR OPERATE ANY MACHINERY ?? DO NOT DRINK ALCOHOLIC BEVERAGES ?? DO NOT SIGN LEGAL DOCUMENTS ?? If you are a smoker: DO NOT SMOKE WHILE YOU ARE ALONE Diet ?? Start by eating small portions of foods that ordinarily will not upset your stomach. Be gentle with what you choose to start with. ?? Drink plenty of fluids ( unless otherwise told not to) Medications You may have a mild sore throat. Ice chips, popsicles, over the counter throat lozenges or spray may help numb your throat. This procedure should not cause a fever. IV SITE-- slight redness or tenderness is normal, you can use warm compresses if you get concerned.If the tenderness +/or redness increases or foul drainage and a red streak occurs, please contact your PCP immediately. WHEN SHOULD YOU CALL FOR HELP? Call [phone] anytime you think that you need emergency care. For example, call if: You passed out (lost consciousness). You cough up blood. You vomit blood or what looks like coffee grounds. You pass maroon or very bloody stools. Call your healthcare provider or seek immediate medical attention if: You have trouble swallowing. You have belly pain. Your stools are black or tarlike or have streaks of blood. You are sick to your stomach or cannot keep fluids down. Watch closely for changes in your health, and be sure to contact your doctor IF Your throat still hurts after a day or two You do not get better as expected. Saturday-Saturday Same Day Endo [phone] 7a-8p Otherwise contact [phone] and ask to speak to the courier delivery driver addiction specialist Follow-up care is a palomo part of your treatment and safety. Be sure to make and go to all appointments, and call your doctor if you are having problems. Instructions have been reviewed and patient expresses understanding documented in this encounter Medications at Time of Discharge Medication Sig Dispensed Refills Start Date End Date lisinopriL (Zestril) 10 mg tablet Take 1 tablet by mouth once a day for kidney protection 06/06/2009 fluticasone propionate (FLONASE) 50 mcg/actuation [place], Suspension 1 spray daily. pramipexole (MIRAPEX) 0.125 [...] 100 mg capsule Take by mouth. 02/24/2009 glipiZIDE (GLUCOTROL XL) 5 mg Tablet Extended Rel 24 hr 07/28/2018 3 lactulose (CHRONULAC) 20 gram/30 mL Solution Take 15 mLs by mouth 2 times daily. 1000 mL 3 09/10/2018 06/06/2022 rifAXIMin (XIFAXIN) 550 mg Tablet Take 1 tablet by mouth 2 times daily. 60 tablet 5 02/22/2017 06/06/2022 cinnamon bark 500 mg Capsule Take by mouth. 09/23/2019 red yeast rice 600 mg Tab Take 600 mg by mouth 2 times daily. 08/08/2023 documented as of this encounter Miscellaneous Notes * Consult Note - Kehinde Martin - 09/17/2018 9:10 AM EDT Gastroenterology and Hepatology Pre-Procedure History and Physical Exam Procedure: EGD: Indication: Hx of cirrhosis screening for varices Patient Active Problem List Diagnosis Code ??? Bladder cancer C67.9 ??? S/P hysterectomy Z90.710 ??? Vaginal lesion N89.8 ??? Mixed incontinence N39.46 ??? NAFLD (nonalcoholic fatty liver disease) K76.0 EXAM: HEENT: Airway examined, oropharynx clear Mallampati [...] procedure explained to the patient. Consent signed. Electronically signed by: Kehinde Martin Gastroenterology Fellow [facility] Pager [phone] 09/17/2018 documented in this encounter Plan of Treatment Upcoming Encounters Date Type Department Care Team (Late st Contact Info) Description 02/06/2024 11:30 AM EDT [place]oint[place] [address] Molly Cui, [facility] GASTROENTEROLOGY [place], [place] [id number] 02/06/2024 12:15 PM EDT Laboratory Appointment Lab [address] [place] [address] 02/06/2024 1:30 PM EDT Office [place] [address] Molly Cui, [facility] GASTR[facility] [place], [place] [id number] documented as of this encounter Procedures Procedure Name Priority Date/Time Associated Diagnosis Comments EGD, UPPER GI ENDOSCOPY (WRVU 2.09) 09/17/2018 10:04 AM EDT cirrhosis,screening for varices (IVCS) prep: proclear UPPER GI ENDOSCOPY Routine 09/17/2018 9: 58 AM EDT documented in this encounter Results * UPPER GI ENDOSCOPY (09/17/2018 9:58 AM EDT) UPPER GI ENDOSCOPY [facility] Endoscopy Procedure Date: 09/17/2018 9:58 AM ? Patient Name: Milka Corbett ? Date of : 1940 ? Age: 78 ? Order #: [id number] ? Instrument Name: [id number] ? Procedure: ? Upper GI endoscopy Indications: ? Variceal screening (no known varices ? or prior bleeding) Providers: ? Bertha Greene, ? RN, Montrell Ponce, Kehinde Martin MD Referring : ?Sophia Mcarthur MD Medicines: ? Midazolam 2 mg IV, Fentanyl 100 ? micrograms IV Complications: ? No immediate complications. Procedure: ? Pre-Anesthesia Assessment: ? - Prior to the procedure, a History ? and Physical was performed, and ? patient medications, allergies and ? sensitivities were reviewed. The ? patient's tolerance of previous ? anesthesia was reviewed. ? - The risks and benefits of the ? procedure and the sedation options ? and risks were discussed with the ? patient. All questions were answered ? and informed consent was obtained. ? - Patient identification and proposed ? procedure were verified prior to the ? procedure by the physician, the nurse ? and the composite bond technician. The procedure was ? verified in the pre-procedure area in ? the endoscopy suite. ? The procedure, indications, benefits, ? risks and alternatives were explained ? to the patient. Specifically ? discussed were potential ? complications including, but not ? limited to, bleeding, perforation, ? infection, missing a cancer, and ? adverse medication reactions. The ? Endoscope was introduced through the ? mouth, and advanced to the second ? part of duodenum. The patient ? tolerated the procedure well. The ? upper GI endoscopy was accomplished ? with ease. The patient tolerated the ? procedure fairly well. ? Findings: ? Esophagogastric landmarks were identified: the Z-line ? was found at 35 cm, the upper extent of the gastric ? folds was found at 36 cm and the site of hiatal ? narrowing was found at 36 cm from the incisors. ? There were esophageal mucosal changes suspicious for ? 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 the lower third of the esophagus. There was there ? sub-centimeter islands extending up 2 cm. The maximum ? longitudinal extent of these mucosal changes was 3 cm ? in length. ? Small varices were found in the lower third of the ? esophagus, they completely flattened with ? insufflation. ? The entire examined stomach was normal. ? The in the duodenum was normal. ? Moderate Sedation: ? I was present during the intraservice time as ? documented by the sedation RN. 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 Not biopsied ? given short segment and presence of ? underlying varices. ? - Small esophageal varices. ? - Normal stomach. ? - Normal Duodenum ? - No specimens collected. Recommendation: ?- Repeat upper endoscopy in 1 year in ? 1 year for follow up of esophageal ? varices. ? - Return to GI clinic. ? Procedure Code(s): ?? --- Professional --- ? 77270, Esophagogastroduod enoscopy, ? flexible, transoral; diagnostic, ? including collection of specimen(s) ? by brushing or washing, when ? performed (separate procedure) CPT copyright 2017 [employer]. All rights reserved. The codes documented in this report are preliminary and upon certified phlebotomy technician review may be revised to meet current compliance requirements. Attending Participation: ? I was present and participated during the entire ? procedure, including non-palomo portions. ? Juliette Greer Tien, 09/17/2018 10:32:25 AM Number of Addenda: 0 Note Initiated On: 09/17/2018 9:58 AM PROVATION 09/17/2018 9:58 AM EDT Salome Mcarthur CURRICULUM AND INSTRUCTION DIRECTOR GENERAL SURGICAL OR DERABLES PROVATION documented in this encounter Visit Diagnoses Not on filedocumented in this encounter Administered Medications Inactive Administered Medications - up to 3 most recent administrations Medication Order MAR Action Action Date Dose Rate Site fentaNYL 50 mcg/mL multi-dose injection ONCE PRN, Starting on Sat09/17/18 at 1006, Until Sat09/17/18 at 1325, Intra-Operative (Intra-Procedure), Routine Given 09/17/2018 10:11 AM EDT 50 mcg Given 09/17/2018 10:06 AM EDT 50 mcg midazolam (PF) (VERSED) multi-dose injection ONCE PRN, Starting on Sat09/17/18 at 1006, Until Sat09/17/18 at 1325, Intra-Operative (Intra-Procedure), Routine Given 09/17/2018 10:11 AM EDT 1 mg Given 09/17/2018 10:06 AM EDT 1 mg documented in this encounter Active and Recently Administered Medications Times are shown in EDT. PRN Medication Order 09/15/2018 09/16/2018 09/17/2018 fentaNYL 50 mcg/mL multi-dose injection (CANCELED) ONCE PRN, Starting on Sat09/17/18 at 1006, Until Sat09/17/18 at 1325, Intra-Operative (Intra-Procedure), Routine 1006 (Given - Provid er: Bertha Oleary RN)1011 (Given - Provider: Bertha Oleary RN) midazolam (PF) (VERSED) multi-dose injection (CANCELED) ONCE PRN, Starting on Sat09/17/18 at 1006, Until Sat09/17/18 at 1325, Intra-Operative (Intra-Procedure), Routine 1006 (Given - Provid er: Bertha Oleary RN)1011 (Given - Provider: Bertha Oleary RN) documented in this encounter Care Teams Veneer Joiner Relationship Specialty Start Date End Date Salome Mcarthur, CURRICULUM AND INSTRUCTION DIRECTOR [address] [place] [address] PCP - General Family Medicine 05/30/15 documented as of this encounter
--- OUTSIDE RECORDS SUMMARY | 2023-12-02 18:35 | XMS_ITS | Encounter Summary ---
Author Organization [place] [address] Care Team Providers Care Community Health Nursing Director Name Role Phone Salome Mcarthur APRN Primary Care Provider [phone] Reason for Referral * Diagnostic Test (Routine) - Closed Specialty Diagnoses / Procedures Referred By Contac t Referred To Contact Radiology Diagnoses Hepatic cirrhosis, unspecified hepatic cirrhosis type, unspecified whether ascites present Procedures MRI Abdomen wwo Contrast (Generic) Molly Cui APRN [facility] [place] [address] [place] [address] Referral ID Status Reason Start Date Expiration Date V isits Requested Visits Authorized [id number] Closed Specialty Service Requested 07/14/2018 07/14/2019 1 1 Reason for Visit * Diagnostic Test (Routine) - Closed Specialty Diagnoses / Procedures Referred By Contac t Referred To Contact Radiology Diagnoses Hepatic cirrhosis, unspecified hepatic cirrhosis type, unspecified whether ascites present Procedures MRI Abdomen wwo Contrast (Generic) Molly Cui APRN [facility] [place] [address] [place] [address] Referral ID Status Reason Start Date Expiration Date V isits Requested Visits Authorized [id number] Closed Specialty Service Requested 07/14/2018 07/14/2019 1 1 Encounter Details Date Type Department Care Team (Latest Contact Info) Description 09/10/2018 11:50 AM EDT - 09/10/2018 11:59 PM EDT Hospital Encounter MRI [place] [facility] [place] [address] Molly Cui APRN [facility] [place] [address] Hepatic cirrhosis, unspecified hepatic cirrhosis type, unspecified [...] protection 06/06/2009 fluticasone propionate (FLONASE) 50 mcg/actuation [place], Suspension 1 spray daily. pramipexole (MIRAPEX) 0.125 [...] 02/06/2024 11:30 AM EDT [place] [id number] Molly Cui, [facility] [place] [address] 02/06/2024 12:15 PM EDT Laboratory Appointment Lab [address] [place] [phone] 02/06/2024 1:30 PM EDT Office [place] [phone] Molly Cui, [facility] [place] [address] documented as of this encounter Procedures Procedure Name Priority Date/Time Associated Diagnosis Comments MRI ABDOMEN WWO CONTRAST Routine 09/10/2018 1:24 PM EDT Hepatic cirrhosis, unspecified hepatic cirrhosis type, unspecified whether ascites present documented in this encounter Results * MRI Abdomen wwo Contrast (Generic) (09/10/2018 1:24 PM EDT) Anatomical Region Laterality Modality Abdomen Magnetic Resonan ce Impressions 09/10/2018 3:09 PM EDT 1. ??Hepatomegaly with diffuse mild hepatic steatosis. 2. ??Mild reticular abnormality in the subcapsular right lobe is likely secondary to fibrosis. No interval change. 3. ??No suspicious hepatic lesion. 4. 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 LI-RADS Categories: LR-TIV = Tumor [...] LI-RADS criteria and documentation are available online https://www.acr.org/Quality-Safety/Resources/LIRADS/LIRADS-v2017. This report utilizes LI-RADS version 2017. Thank you for letting us participate in the care of this patient. For questions regarding this report, please contact the number below. ? Narrative 09/10/2018 3:09 PM EDT EXAMINATION: MRI ABDOMEN WWO CONTRAST (GENERIC) CLINICAL HISTORY: BA cirrhosis, survey for HCC. Hx of pulmonary lesion, please evaluate if seen on images. TECHNIQUE: MRI of the abdomen was performed with images obtained prior to and following intravenous administration of 14ml of Dotarem using the dynamic liver protocol. COMPARISONS: MRI 03/08/2018 FINDINGS: Incidentally, left lower lobe nodule is again identified, suboptimally assessed on this study. Recommend reference to the chest CT of 08/01/2018 for further information. Prior interventions: None. Liver Morphology: Enlarged to 23 cm. Diffuse surface nodularity is present. Diffuse mild loss of signal on out of phase images indicate hepatic steatosis. The previously described reticular pattern in the hepatic periphery and inferior right lobe is not as evident currently. Stable subpleural reticular enhancement noted in the inferior and lateral aspect of the right lobe, unchanged from. There is no focal hypervascular mass nor washout appearance. Portal Vein: Widely Patent. Varices: Small caliber recanalized umbilical vein. No esophageal varices. Ascites: None. No basilar pleural effusion. Spleen: Mildly enlarged. No focal lesions. Bile ducts: Nondilated. Gallbladder: Surgically absent Pancreas: Normal. Adrenals: Normal. Kidneys: No renal collecting system dilatation. No focal lesions. Aorta: No aneurysm. Lymph nodes: No enlarged lymph nodes. Bowel: Nondilated, no inflammatory changes. Marrow Signal: No focal marrow signal abnormality. Procedure Note Susan Callahan MD - 09/10/2018 EXAMINATION: MRI ABDOMEN WWO CONTRAST (GENERIC) CLINICAL HISTORY: BA cirrhosis, survey for HCC. Hx of pulmonary lesion, please evaluate if seen on images. TECHNIQUE: MRI of the abdomen was performed with images obtained prior toand following intravenous administration of 14ml of Dotarem using the dynamicliver protocol. COMPARISONS: MRI 03/08/2018 FINDINGS: Incidentally, left lower lobe nodule is again identified, suboptimallyassessed on this study. Recommend reference to the chest CT of 08/01/2018 forfurther information. Prior interventions: None. Liver Morphology: Enlarged to 23 cm. Diffuse surface nodularity ispresent. Diffuse mild loss of signal on out of phase images indicate hepaticsteatosis. The previously described reticular pattern in the hepatic periphery andinferior right lobe is not as evident currently. Stable subpleural reticular enhancement noted in the inferior and lateralaspect of the right lobe, unchanged from. There is no focal hypervascular massnor washout appearance. Portal Vein: Widely Patent. Varices: Small caliber recanalized umbilical vein. No esophagealvarices. Ascites: None. No basilar pleural effusion. Spleen: Mildly enlarged. No focal lesions. Bile ducts: Nondilated. Gallbladder: Surgically absent Pancreas: Normal. Adrenals: Normal. Kidneys: No renal collecting system dilatation. No focal lesions. Aorta: No aneurysm. Lymph nodes: No enlarged lymph nodes. Bowel: Nondilated, no inflammatory changes. Marrow Signal: No focal marrow signal abnormality. IMPRESSION 1. Hepatomegaly with diffuse mild hepatic steatosis. 2. Mild reticular abnormality in the subcapsular right lobe is likelysecondary to fibrosis. No interval change. 3. No suspicious hepatic lesion. 4. Left lower lobe pulmonary nodule, characterized as a bronchial atresiaon recent prior chest CT. LI-RADS Categories: LR-TIV = Tumor [...] LI-RADS criteria and documentation are available online https://www.acr.org/Quality-Safety/Resources/LIRADS/LIRADS-v2017. Thisreport utilizes LI-RADS version 2017. Thank you for letting us participate in [...] meglumine (DOTAREM) 0.5 mmol/mL (376.9 mg/mL) injection 0-100 mL 0-100 mL, Intravenous, ONCE PRN, 1 dose, Starting on Sat09/10/18 at 1324, Until Sat09/10/18 at 1309, Per Protocol, Radiology Contrast, Routine Given 09/10/2018 1:09 PM EDT 14 mLs documented in this encounter Care Teams Community Health Nursing Director Relationship Specialty Start Date End Date Salome Mcarthur APRN [address] [place] [address] PCP - General Family Medicine 05/30/15 documented as of this encounter
--- OUTSIDE RECORDS SUMMARY | 2023-12-02 18:35 | XMS_ITS | Encounter Summary ---
Author Organization [facility] [place] [address] Care Team Providers Care Tobacco Feeder Catcher Name Role Phone Salome Mcarthur APRN Primary Care Provider [phone] Reason for Referral * Diagnostic Test (Routine) - Closed Specialty Diagnoses / Procedures Referred By Contruth t Referred To Contact Radiology Diagnoses Hepatic cirrhosis, unspecified hepatic cirrhosis type, unspecified whether ascites present Procedures MRI Abdomen wwo Contrast (Generic) Molly Cui APRN [facility] [address] [place] [address] Referral ID Status Reason Start Date Expiration Date V isits Requested Visits Authorized [id number] Closed Specialty Service Requested 03/12/2019 03/11/2020 1 1 Encounter Details Date Type Department Care Team (Late st Contact Info) Description 03/12/2019 12:30 PM EST Office Visit [place] [address] Molly Cui [facility] [place] [address] Hepatic cirrhosis, unspecified hepatic cirrhosis type, unspecified [...] Sign Reading Time Taken Comments Blood Pressure 125/54 03/12/2019 1:16 PM EST Pulse 87 03/12/2019 1:16 PM EST Temperature - - Respiratory Rate - - Oxygen Saturation - - Inhaled Oxygen Concentration - - Weight 65.5 kg (144 lb 4.8 oz) 03/12/2019 1:16 P M EST Height 154.9 cm (5' 1) 03/12/2019 1:16 PM EST Body Mass Index 27.27 03/12/2019 1:16 PM EST documented in this encounter Progress Notes * Molly Cui APRN - 03/12/2019 12:30 PM EST Hepatology Follow Up Note Patient: Milka Corbett Gender: female : 1940 Provider: Molly Cui NP Referring Physician: Salome Mcarthur APRN HISTORY OF PRESENT ILLNESS Milka Corbett is a 78 y.o. year old female With BA Cirrhosis who returns today for follow up. She has been feeling okay. Her dog recently which has been very sad. No changes in her health.She remembers that her sister of BA cirrhosis at age 66, and her mom at age 65 from cirrhosis as well. She denies any ascites, blood in stool, melena. PAST MEDICAL/SURGICAL HISTORY 1. 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 Fibroscan 06/28/15: 28.4 kPa; 6% IQR; 100% success rate, F4 ?? Risk factors: diabetes, hyperlipidemia, HTN, overweight. Strong family hx of BA cirrhosis. ?? Ultrasound 07/22/2015: no lesions ?? EGD 07/14/2015: no varices, gastric ulcers (2). 2 Diabetes 3. Hypertension 4. Elevated cholesterol MEDICATIONS Outpatient Medications Marked as Taking for the 03/12/19 encounter (Office Visit) with Molly Cui APRN Medication Sig Dispense Refill ??? fluticasone propionate (FLONASE) 50 mcg/actuation [place], Suspension 1 spray daily. ??? pramipexole (MIRAPEX) 0.125 mg Tablet ??? glipiZIDE (GLUCOTROL XL) 5 mg Tablet Extended Rel 24 hr ??? lactulose (CHRONULAC) 20 gram/30 mL Solution Take 15 mLs by mouth 2 times daily. 1000 mL 3 ??? fenofibrate (TRICOR) 145 mg Tablet Reported on 08/21/2016 ??? nystatin (MYCOSTATIN) 100,000 unit/mL Suspension as needed. 0 ??? gabapentin (NEURONTIN) 600 mg tablet Take 600 mg by mouth 2 times daily. ??? metFORMIN (GLUCOPHAGE) 1,000 mg tablet Take 1,000 mg by mouth 2 times daily (with meals). ??? triamcinolone (KENALOG) 0.1 % cream Apply 1 Application topically as needed. ??? acetaminophen (TYLENOL) 325 mg tablet Take 650 mg by mouth every 4 hours as needed. ??? Glade-3 Fatty Acids-Vitamin E (FISH OIL) 1,000 mg Cap Take 3,000 mg by mouth daily. ??? multivitamin (THERAGRAN) tablet Take 1 tablet by mouth daily. ??? amitriptyline (ELAVIL) 50 mg tablet Take 50 mg by mouth nightly. Current Facility-Administered Medications for the 03/12/19 encounter (Office Visit) with Molly Cui APRN Medication Dose Route Frequency Provider Last Rate Last Dose ??? diatrizoate meglumine (HYPAQUE, CYSTOGRAFIN) urethral solution 300 mL 300 mL Urethral Once PRN Sandra Beltrán MD ALLERGIES Allergies Allergen Reactions ??? Codeine Phosphate Rash and Other (See Comments) Causes anxiety ??? Erythromycin Base Nausea And Vomiting ??? Meperidine Hcl Other (See Comments) confusion SOCIAL HISTORY Lives with her . Has a small dog that keeps her busy. Has 4 grown children and a large extended family. Sister of BA cirrhosis Does not drink alcohol (other than 1-2x/year). [...] 29 of acute hepatitis PHYSICAL EXAM Vitals: 03/12/19 1316 BP: 125/54 BP Location (NBP): Right arm Patient Position: Sitting BP Cuff Sizes: Adult (25-34 cm) Pulse: 87 Weight: 65.5 kg (144 lb 4.8 oz) Height: 154.9 cm (5' 1) Body mass index is 27.27 kg/m??. Gen: Well appearing, no apparent distress. Skin: no spider angiomata, no palmar erythema, no jaundice. HEENT: Sclerae anicteric, pupils equal, round, react to light. Pharynx unremarkable. Neck is supple, no adenopathy, no thyromegaly. Extremities: No edema. Neuro: alert and oriented x3, no asterixis or tremor. Lab Results Component Value Date WBC 7.3 03/12/2019 HGB 13.8 03/12/2019 HCT 41.2 03/12/2019 MCV 91.6 03/12/2019 PLATELET 122 (L) 03/12/2019 Recent Labs 03/12/19 1139 INR 1.2 Chemistry Component Value Date/Time NA 143 03/12/2019 1139 K 4.1 03/12/2019 1139 CL 102 03/12/2019 1139 CO2 26 03/12/2019 1139 BUN 19 (H) 03/12/2019 1139 CREATININE 0.75 09/10/2018 1346 Component Value Date/Time CALCIUM 10.1 03/12/2019 1139 ALKPHOS 69 09/10/2018 1346 AST 39 (H) 09/10/2018 1346 ALT 41 (H) 09/10/2018 1346 BILITOT 0.7 09/10/2018 1346 MELD-Na score: 8 at 03/12/2019 11:39 AM MELD score: 8 at 03/12/2019 11:39 AM Calculated from: Serum Creatinine: 0.64 mg/dL (Rounded to 1 mg/dL) at 03/12/2019 11:39 AM Serum Sodium: 143 mmol/L (Rounded to 137 mmol/L) at 03/12/2019 11:39 AM Total Bilirubin: 0.6 mg/dL (Rounded to 1 mg/dL) at 03/12/2019 11:39 AM INR(ratio): 1.2 at 03/12/2019 11:39 AM Age: 78 years US 03/12/19: 1. Diffusely echogenic and enlarged liver with capsular nodularity, consistent with history of BA cirrhosis, per eDH. No sonographic evidence of new hepatic lesion. Patent portal veins. 2. Stable size of the MRI-occult indeterminant left hepatic lobe echogenic, 5 mm focus with a hypoechoic rim. Unchanged periportal calcification. 3. Normal common bile duct caliber without choledocholithiasis. Post cholecystectomy. 4. No ascites. ASSESSMENT/PLAN Milka Corbett is a 78 y.o. 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 1. Cirrhosis. Diagnosed by fibroscan. Well compensated. MELD 8. 2. BA. Her metabolic risks include diabetes, hypertension, elevated cholesterol, overweight. In addition she has a strong family history of cirrhosis, likely due to BA. She has been working on keeping her weight down and glycemic controll. 3. Portal hypertension. EDG done 09/2018 showed small varices, plan to repeat in 1year. 4. HCC surveillance. US today with no new lesions, yet difficult to visualize liver. Plan to do MRIin 6 months with AFP> 5. Hepatic encephalopathy. Denies any symptoms today, has taken lactulose in the past for assistance with her memory as well as constipation. 6. Lung nodule. Followed by PCP, last CT was stable. 7. Preventative health. We discussed adding a colonoscopy on to her EGD today, however at 78 with cirrhosis I am not sure that she would see the benefits of a repeat colonoscopy. She states she has had prior colonoscopies at [facility]. May consider FIT tests, or stopping colon cancer screening. Plan: - Follow up in 6 months with labs and MRI Molly Cui APRN Section of Gastroenterology [place] [address] Copy: Salome Mcarthur APRN [address] / [place] [address] 25 of this 30 minute visit in face to face discussion regarding disease, prognosis and treatment documented in this encounter Plan of Treatment Upcoming Encounters Date Type Department Care Team (Late st Contact Info) Description 02/06/2024 11:30 AM EDT Appointment [place] [address] Molly Cui, [facility] [place] [address] 02/06/2024 12:15 PM EDT Laboratory Appointment Lab [address] [address] 02/06/2024 1:30 PM EDT Office [place] [address] Molly Cui, [facility] [place], [place] [id number] documented as of this encounter Results * MRI Abdomen wwo [...] criteria and documentation are available online at https://www.acr.org/Clinical-Resources/Pmxtzfyex-yxl-Qysx-Systems/LI-RADS. This report utilizes LI-RADS version 2018. I [...] criteria and documentation are available online at https://www.acr.org/Clinical-Resources/Yvzhitgtj-vbb-Srju-Systems/LI-RADS.This report utilizes LI-RADS version 2018. I have personally reviewed the image(s) and the resident's interpretationand agree with the findings, [facility] at 10/30/2019 2:53 PM Thank you for letting us participate in the care of this patient. Forquestions regarding this report, please contact the number below. Molly Cui APRN IMG MRI ORDERABLES * AFP tumor marker (10/29/2019 3:13 PM EDT) Alpha Fetoprotein 2.9 <=8.3 ng/mL [facility] Blood specimen (specimen) 10/29/2019 3:13 PM EDT 10/29/2019 3:22 PM EDT Narrative Resulting Agency Comment Spec In Lab Molly Cui APRN CHEMISTRY ORDERABL ES [facility] [place] [address] * (ABNORMAL) Prothrombin Time (10/29/2019 3:13 PM EDT) Prothrombin Time 13.1(H) 9.4 - 12.5 sec [facility] International Normalization Ratio 1.1 [facility] Comment: An INR <2.0 indicates [...] Lab Molly Cui APRN HEMATOLOGY ORDERAB LES [facility] [place] [address] * (ABNORMAL) Comprehensive metabolic panel (non-fasting) (10/29/2019 3:13 PM EDT) Pathologist [facility] Glucose 116 65 - 199 mg/dL [facility] Comment:Diabetes: >=200 mg/d L plus symptoms Blood Urea Nitrogen 19(H) 8 - 18 mg/dL [facility] Creatinine 0.67(L) 0.70 - 1.20 mg/dL [facility] Sodium 140 135 - 145 mmol/L [facility] Potassium 4.2 3.5 - 5.0 mmol/L [facility] Comment: Please note: ??Patients with WBC >100,000 may have falsely elevated Potassium levels. ??For accurate Potassium quantification in these patients send serum separator tube (gold top) for subsequent determinations. ??Contact the Clinical Chemistry Laboratory if there are any questions. Chloride 98 98 - 107 mmol/L [facility] Carbon Dioxide 27 22 - 31 mmol/L [facility] Anion Gap 15 5 - 15 mmol/L [facility] Calcium 9.9 8.5 - 10.5 mg/dL [facility] Protein, Total 7.0 6.1 - 8.0 gm/dL [facility] Albumin 4.4 3.2 - 5.2 gm/dL [facility] Aspartate Aminotransferase 28 0 - 30 unit/L [facility] Alanine Aminotransferase 37(H) 0 - 30 unit/L [facility] Alkaline Phosphatase 73 35 - 105 unit/L [facility] Bilirubin, Total 0.6 0.2 - 1.3 mg/dL [facility] Est Glomerular Filtration Rate 84 >=60 mL/min/1. 73 m?? [facility] Comment: The eGFR was calculated using the CKD-EPI equation. As with all creatinine based estimates of kidney function, eGFR values calculated with the CKD-EPI equation are not accurate in patients with acute kidney failure, extremes of body mass or the acutely ill. [email or web address] eGFR 98 >=60 mL/min/1. 73 m?? [facility] Comment: The eGFR was calculated using the CKD-EPI equation. As with all creatinine based estimates of kidney function, eGFR values calculated with the CKD-EPI equation are not accurate in patients with acute kidney failure, extremes of body mass or the acutely ill. [email or web address] Blood specimen (specimen) 10/29/2019 3:13 PM EDT 10/29/2019 3:22 PM EDT Narrative Resulting Agency Comment Spec In Lab Molly Cui APRN CHEMISTRY ORDERABL ES [facility] [place] [address] documented in this encounter Visit Diagnoses Diagnosis Hepatic cirrhosis, unspecified hepatic cirrhosis type, unspecified whether ascites present Hepatic cirrhosis, unspecified hepatic cirrhosis type, unspecified whether ascites present documented in this encounter Care Teams Tobacco Feeder Catcher Relationship Specialty Start Date End Date Salome Mcarthur APRN [address] [place] [address] PCP - General Family Medicine 05/30/15 documented as of this encounter
--- OUTSIDE RECORDS SUMMARY | 2023-12-02 18:35 | XMS_ITS | Encounter Summary ---
Author Organization [facility] [place] [address] Care Team Providers Care Independent Marketing Consultant Name Role Phone Salome Mcarthur APRN Primary Care Provider [phone] Reason for Visit * Reason Comments Follow-up Encounter Details Date Type Department Care Team (Late st Contact Info) Description 09/10/2018 1:30 PM EDT Office [place] [phone] Molly Wallis APRN [facility] [place] [address] Hepatic cirrhosis, unspecified hepatic cirrhosis type, unspecified [...] Sign Reading Time Taken Comments Blood Pressure 118/49 09/10/2018 2:09 PM EDT Pulse 89 09/10/2018 2:09 PM EDT Temperature - - Respiratory Rate - - Oxygen Saturation - - Inhaled Oxygen Concentration - - Weight 65.3 kg (144 lb) 09/10/2018 2:09 PM EDT Height 154.9 cm (5' 1) 09/10/2018 2:09 PM EDT Body Mass Index 27.21 09/10/2018 2:09 PM EDT documented in this encounter Progress Notes * Molly Wallis APRN - 09/10/2018 1:30 PM EDT Hepatology Follow Up Note Patient: Milka Mendieta Gender: female : 1940 Provider: Molly Wallis NP Referring Physician: Salome Mcarthur APRN HISTORY OF PRESENT ILLNESS Milka Mendieta is a 78 y.o. year old female With BA Cirrhosis who returns today for follow up. She has been feeling well. She is wondering why her skin gets itchy sometimes. Her niece has cirrhosis and her skin gets itchy too. She also has a bulge on her left side,wondering what it is. She often has runny stools that are light colored. Usually has 2-3 BM/day. No blood in stools, no melena. She is not dizzy as often. She is no longer taking medication for restless leg syndrome. She still has problems remembering certain things she has said. PAST MEDICAL/SURGICAL HISTORY 1. 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 Fibroscan 06/28/15: 28.4 kPa; 6% IQR; 100% success rate, F4 ?? Risk factors: diabetes, hyperlipidemia, HTN, overweight. Strong family hx of BA cirrhosis. ?? Ultrasound 07/22/2015: no lesions ?? EGD 07/14/2015: no varices, gastric ulcers (2). 2 Diabetes 3. Hypertension 4. Elevated cholesterol MEDICATIONS Outpatient Medications Marked as Taking for the 09/10/18 encounter (Office Visit) with Molly Wallis APRN Medication Sig Dispense Refill ??? fluticasone propionate (FLONASE) 50 mcg/actuation [place], Suspension 1 spray daily. ??? pramipexole (MIRAPEX) 0.125 mg Tablet ??? diphenhydrAMINE (BENADRYL) 25 mg Capsule Take 25 mg by mouth every 6 hours as needed for Itching. ??? nystatin (MYCOSTATIN) 100,000 unit/mL Suspension as [...] mouth every 4 hours as needed. ??? [place]-3 Fatty Acids-Vitamin E (FISH OIL) 1,000 mg Cap Take 3,000 mg by mouth daily. ??? multivitamin (THERAGRAN) tablet Take 1 tablet by mouth daily. ??? amitriptyline (ELAVIL) 50 mg tablet Take 50 mg by mouth nightly. Current Facility-Administered Medications for the 09/10/18 encounter (Office Visit) with Molly Wallis APRN [...] 29 of acute hepatitis PHYSICAL EXAM Vitals: 09/10/18 1409 BP: 118/49 Pulse: 89 Weight: 65.3 kg (144 lb) Height: 154.9 cm (5' 1) Body mass index is 27.21 kg/m??. Gen: Well appearing, no apparent distress. Skin: no spider angiomata, no palmar erythema, no jaundice. HEENT: Sclerae anicteric, pupils equal, round, react to light. Pharynx unremarkable. Neck is supple, no adenopathy, no thyromegaly. Extremities: No edema. Neuro: alert and oriented x3, no asterixis or tremor. Lab Results Component Value Date WBC 8.1 09/10/2018 HGB 14.6 09/10/2018 HCT 43.3 09/10/2018 MCV 93.5 09/10/2018 PLATELET 135 (L) 09/10/2018 Recent Labs 09/10/18 1346 INR 1.1 Chemistry Component Value Date/Time NA 139 09/10/2018 1346 K 3.9 09/10/2018 1346 CL 99 09/10/2018 1346 CO2 26 09/10/2018 1346 BUN 18 09/10/2018 1346 CREATININE 0.75 09/10/2018 1346 Component Value Date/Time CALCIUM 10.5 09/10/2018 1346 ALKPHOS 69 09/10/2018 1346 AST 39 (H) 09/10/2018 1346 ALT 41 (H) 09/10/2018 1346 BILITOT 0.7 09/10/2018 1346 MELD-Na score: 7 at 09/10/2018 1:46 PM MELD score: 7 at 09/10/2018 1:46 PM Calculated from: Serum Creatinine: 0.75 mg/dL (Rounded to 1 mg/dL) at 09/10/2018 1:46 PM Serum Sodium: 139 mmol/L (Rounded to 137 mmol/L) at 09/10/2018 1:46 PM Total Bilirubin: 0.7 mg/dL (Rounded to 1 mg/dL) at 09/10/2018 1:46 PM INR(ratio): 1.1 at 09/10/2018 1:46 PM Age: 78 years MRI 09/10/18: Results pending ASSESSMENT/PLAN Milka Mendieta is a 78 y.o. 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 1. Cirrhosis. Diagnosed by fibroscan. Well compensated. MELD 7, which is normal. Her itchy skin maybe related to her cirrhosis in that she is more likely to have dry skin. Her bilirubin is normal. Recommended CeraVe lotion 2. BA. Her metabolic risks include diabetes, hypertension, elevated cholesterol, overweight. In addition she has a strong family history of cirrhosis, likely due to BA. She has been working on keeping her weight down and glycemic controll. 3. Portal hypertension. EDG done 07/14/15 shows no varices, plan to repeat in 2-3 years. Plan to schedule today. 4. HCC surveillance. Awaiting results of MRI today. MRI from 6 months ago did not show any lesions. 5. Hepatic encephalopathy. She is having symptoms of difficulty remembering things she formerly could remember easily, trouble remembering names. She also has a large volume of stool in her descending colon as seen on MRI, that appears to be causing a bulge in her left flank. Plan to start Lactulose to both help her early hepatic encephalopathy and also treat her constipation. Goal of 2-3 BM/day,will start with 15mL BID and can titrate up or down. 6. Lung nodule. Followed by PCP, last CT was stable. 7. Preventative health. We discussed adding a colonoscopy on to her EGD today, however at 78 with cirrhosis I am not sure that she would see the benefits of a repeat colonoscopy. She states she has had prior colonoscopies at [facility]. May consider FIT tests, or stopping colon cancer screening. Plan: - Schedule EGD with IV sedation next available - Rx Lactulose 15mL BID with goal of 3 BM/day - Repeat US, labs and visit in 6 months. Molly Wallis APRN Section of Gastroenterology [place] [address] Copy: Salome Mcarthur APRN [address] / [place] [address] 25 of this 30 minute visit in face to face discussion regarding disease, prognosis and treatment documented in this encounter Plan of Treatment Upcoming Encounters Date Type Department Care Team (Late st Contact Info) Description 02/06/2024 11:30 AM EDT Appointment [place] [phone] Molly Wallis APRN [facility] [place] [address] 02/06/2024 12:15 PM EDT Laboratory Appointment Lab [address] [place] [address] 02/06/2024 1:30 PM EDT Office [place] [phone] Molly Wallis APRN [facility] [place] [address] documented as of this encounter Results * (ABNORMAL) Prothrombin Time (03/12/2019 11:39 AM EST) Prothrombin Time 13.5(H) 9.4 - 12.5 sec [facility] [...] Lab Molly Wallis APRN HEMATOLOGY ORDERAB LES [facility] [place] [address] * (ABNORMAL) Comprehensive metabolic panel (non-fasting) (03/12/2019 11:39 AM EST) Glucose 156 65 - 199 mg/dL [facility] Comment:Diabetes: >=200 mg/d L plus symptoms Blood Urea Nitrogen 19(H) 8 - 18 mg/dL [facility] Creatinine 0.64(L) 0.70 - 1.20 mg/dL [facility] Sodium 143 135 - 145 mmol/L [facility] Potassium 4.1 3.5 - 5.0 mmol/L [facility] Comment: Please note: ??Patients with WBC >100,000 may have falsely elevated Potassium levels. ??For accurate Potassium quantification in these patients send serum separator tube (gold top) for subsequent determinations. ??Contact the Clinical Chemistry Laboratory if there are any questions. Chloride 102 98 - 107 mmol/L [facility] Carbon Dioxide 26 22 - 31 mmol/L [facility] Anion Gap 15 5 - 15 mmol/L [facility] Calcium 10.1 8.5 - 10.5 mg/dL [facility] Protein, Total 7.9 6.1 - 8.0 gm/dL [facility] Albumin 4.4 3.2 - 5.2 gm/dL [facility] Aspartate Aminotransferase 29 0 - 30 unit/L [facility] Alanine Aminotransferase 27 0 - 30 unit/L [facility] Alkaline Phosphatase 91 35 - 105 unit/L [facility] Bilirubin, Total 0.6 0.2 - 1.3 mg/dL [facility] Est Glomerular Filtration Rate 86 >=60 mL/min/1. 73 m?? [facility] Comment: The eGFR was calculated using the CKD-EPI equation. As with all creatinine based estimates of kidney function, eGFR values calculated with the CKD-EPI equation are not accurate in patients with acute kidney failure, extremes of body mass or the acutely ill. http://[employer]/[facility] OKLAHOMA CITYnkf eGFR 100 >=60 mL/min/1. 73 m?? [facility] Comment: The eGFR was calculated using the CKD-EPI equation. As with all creatinine based estimates of kidney function, eGFR values calculated with the CKD-EPI equation are not accurate in patients with acute kidney failure, extremes of body mass or the acutely ill. http://[employer]/DHnkf Blood specimen (specimen) 03/12/2019 11:39 AM EST 03/12/2019 11:53 AM EST Narrative Resulting Agency Comment Spec In Lab Molly Wallis APRN CHEMISTRY ORDERABL ES [facility] [place] [address] * US Abdomen Limited Hepatology Protocol (03/12/2019 11:11 AM EST) Anatomical Region Laterality Modality Abdomen Ultrasound 03/12/2019 11:0 7 AM EST Impressions 03/12/2019 1:55 PM EST 1. ??Diffusely echogenic and enlarged liver with capsular nodularity, consistent with history of BA cirrhosis, per eDH. No sonographic evidence of new hepatic lesion. Patent portal veins. 2. ??Stable size of the MRI-occult indeterminant left hepatic lobe echogenic, 5 mm focus with a hypoechoic rim. Unchanged periportal calcification. 3. ??Normal common bile duct caliber without choledocholithiasis. Post cholecystectomy. 4. ??No ascites. I have personally reviewed the image(s) and the resident's interpretation and agree with the findings, Jean Claude Bautista at 03/12/2019 1:48 PM Thank you for letting us participate in the care of this patient. For questions regarding this report, please contact the number below. Electronically signed by: Jean Claude Bautista [facility] ([phone]), at 03/12/2019 1:48 PM ? Jean Claude Bautista, Staff Physician Electronically Signed Final Report ?? 03/12/2019 01:55 pm Narrative 03/12/2019 1:55 PM EST Abdominal ? (Signed Final 03/12/2019 01:55 pm) PATIENT INFO: ID #: ? [id number] ?: ??[birth year] (78 yrs) Name: ? MILKA MENDIETA ?Visit Date: 03/12/2019 11:07 am PERFORMED BY: Performed By: ? Tigist Castellanos RDMS Attending: ?Lily GALLO, Jean Claude Lancaster Resident: ? Ruchi GALLO, Kal Montesinos Referred By: ?MOLLY WALLIS Secondary Phy.: ?? MOLLY WALLIS MASTERCAM PROGRAMMER Location: ? [place] SERVICE(S) PROVIDED: ??[facility] - Hepatology Protocol - Abdominal ? [id number] ??Limited Survey Single Organ or Quadrant - ??[id number] INDICATIONS: ??cirrhosis, survey for hcc ------ LIVER: ------ Right Lobe ? 22.1 ?? cm Length: Echogenicity/Echotexture: ?? Coarse parenchyma with capsular ? nodularity Portal Veins: ?Hepatopetal Comment ? Left lobe hyperechoic nodule measuring 0.5 x 0.5 : ? x 0.5 cm. Left lobe calcification measuring 0.7 cm. HEPATIC-PORTAL DUPLEX: ? Waveform Main Portal ? Patent Vein: Right Portal ?Patent Vein: Left Portal ? Patent Vein: GALLBLADDER: Cholelithiasis: ?Surgically absent BILIARY TRACT: Intrahepatic Ducts: ?? Normal Extrahepatic Ducts: ?? Normal Common Duct Size: ? 6.0 ? mm FLUID COLLECTIONS: No ascites seen. Procedure Note Jean Claude Bautista MD - 03/12/2019 Abdominal (Signed Final 03/12/2019 01:55 pm) PATIENT INFO: ID #: [id number] : [birth year] (78 yrs) Name: MILKA MENDIETA Visit Date: 03/12/2019 11:07 am PERFORMED BY: Performed By: Tigist Castellanos RDMS Attending: Jean Claude Bautista MD Resident: Kal Hopper MD Referred By: MOLLY WALLIS [facility] Phy.: MOLLY WALLIS APRN Location: [place] SERVICE(S) PROVIDED: [facility] Hepat[facility] Protocol - Abdominal [id number] Limited Survey Single Organ or Quadrant - [id number] INDICATIONS: cirrhosis, survey for hcc ------ LIVER: ------ Right Lobe 22.1 cm Length: Echogenicity/Echotexture: Coarse parenchyma with capsular nodularity Portal Veins: Hepatopetal Comment Left lobe hyperechoic nodule measuring 0.5 x 0.5 : x 0.5 cm. Left lobe calcification measuring 0.7 cm. HEPATIC-PORTAL DUPLEX: Waveform Main Portal Patent Vein: Right Portal Patent Vein: Left Portal Patent Vein: GALLBLADDER: Cholelithiasis: Surgically absent BILIARY TRACT: Intrahepatic Ducts: Normal Extrahepatic Ducts: Normal Common Duct Size: 6.0 mm FLUID COLLECTIONS: No ascites seen. IMPRESSION 1. Diffusely echogenic and enlarged liver with capsular nodularity, consistent with history of BA cirrhosis, per eDH. No sonographic evidence of new hepatic lesion. Patent portal veins. 2. Stable size of the MRI-occult indeterminant left hepatic lobe echogenic, 5 mm focus with a hypoechoic rim. Unchanged periportal calcification. 3. Normal common bile duct caliber without choledocholithiasis. Post cholecystectomy. 4. No ascites. I have personally reviewed the image(s) and the resident's interpretation and agree with the findings, Jean Claude Bautista at 03/12/2019 1:48 PM Thank you for letting us participate in the care of this patient. For questions regarding this report, please contact the number below. Jean Claude Bautista, Staff Physician Electronically Signed Final Report 03/12/2019 01:55 pm Molly Wallis APRN IMG GEN ORDERAB LES documented in this encounter Visit Diagnoses Diagnosis Hepatic cirrhosis, unspecified hepatic cirrhosis type, unspecified whether ascites present Hepatic cirrhosis, unspecified hepatic cirrhosis type, unspecified whether ascites present documented in this encounter Care Teams Independent Marketing Consultant Relationship Specialty Start Date End Date Salome Mcarthur APRN [address] [place] [address] PCP - General Family Medicine 05/30/15 documented as of this encounter
--- OUTSIDE RECORDS SUMMARY | 2023-12-02 18:35 | XMS_ITS | Encounter Summary ---
Author Organization [facility] Address [facility] [place] [address] Care Team Providers Care Assistant Federal Public Defender Name Role Phone Salome Mcarthur APRN Primary Care Provider [phone] Encounter Details Date Type Department Care Team (Late st Contact Info) Description 06/16/[address] [facility] [place] [phone] Emma Chavis Social History Tobacco Use Types Packs/Day Years [...] encounter Miscellaneous Notes * Telephone Encounter - Emma Chavis - 06/16/2019 10:15 AM EDT Milka Corbett [id number] Diagnosis/Indication: variceal screening 1. Have you ever had a/an Upper Endoscopy before? Yes: Date 09/17/18 If yes, did you have any problems with the procedure? No What type of sedation was used: IV Conscious Sedation 2. Do you take any Blood Thinners? No 3. Do you have a Pacemaker or Defibrillator device? No 4. Are you a diabetic? Yes: Controlled by diet or medication? Both 5. Do you have any Allergies to Eggs, Latex or Medications? Yes: latex 6. Do you take any Oral Iron Supplements (Including multi-vitamins)? No 7. Do you have a history of three or more abdominal surgeries? Yes 8. Have you had a problem with sedation or anesthesia? No 9. Do you have a c-pap machine or oxygen tank? Neither 10. Do you take prescription narcotic pain medications, including suboxone or methodone? No 11. Do you have a preference regarding the gender of your provider? Yes: Female 12. Is there any other information you would like to give us to aid in scheduling? No 13. Say to patient: You must have a responsible green party who will drive you to your procedure, stay [place] for the entire duration of your procedure, and drive you home from your procedure? Height: 5'1 Weight: 142 BMI: 26.8 Age:78 y.o. documented in this encounter Plan of Treatment Upcoming Encounters Date Type Department Care Team (Late st Contact Info) Description 02/06/2024 11:30 AM EDT [place] [phone] Molly Cui SUPER[facility]OR [facility] [place] [place] [address] 02/06/2024 12:15 PM EDT Laboratory Appointment Lab [address] [phone] 02/06/2024 1:30 PM EDT Office [place] [phone] Molly Cui SUPER[facility]OR [facility] [place] [place] [address] documented as of this encounter Visit Diagnoses Not on filedocumented in this encounter Care Teams Assistant [employer] Relationship Specialty Start Date End Date Salome Mcarthur APRN [address] [place] [address] PCP - General Family Medicine 05/30/15 documented as of this encounter
--- OUTSIDE RECORDS SUMMARY | 2023-12-02 18:35 | XMS_ITS | Encounter Summary ---
Author Organization [facility] Address [facility] [place] [address] Care Team Providers Care Farm Or Ranch Animal Caretaker Name Role Phone Salome Mcarthur APRN Primary Care Provider [phone] Reason for Visit * Reason Onset Date Comments Reminder Appointment 10/30/2019 Encounter Details Date Type Department Care Team (Late st Contact Info) Description 10/30/2019 Telephone [place] [phone] Salome Licona CMA GASTROENTEROLOGY DEPT Reminder Appointment Social History Tobacco Use Types Packs/Day Years [...] encounter Miscellaneous Notes * Telephone Encounter - Salome Licona CMA - 10/30/2019 9:51 AM EDT Called patient to review medications and allergies for their upcoming gastroenterology Type of Appointment: Phone appointment. Reach Patient during MA Check: Yes Notes for the provider: Notes for the nurse: documented in this encounter Plan of Treatment Upcoming Encounters Date Type Department Care Team (Late st Contact Info) Description 02/06/2024 11:30 AM EDT [place] [phone] [facility] [place] [address] 02/06/2024 12:15 PM EDT Laboratory Appointment Lab [address] [place] [phone] 02/06/2024 1:30 PM EDT Office [place] [phone] Molly Cui, [place] INSPECTOR [facility] [place] [address] documented as of this encounter Visit Diagnoses Not on filedocumented in this encounter Care Teams Farm Or Ranch Animal Caretaker Relationship Specialty Start Date End Date Salome Mcarthur APRN [address] [place] [address] PCP - General Family Medicine 05/30/15 documented as of this encounter
--- OUTSIDE RECORDS SUMMARY | 2023-12-02 18:35 | XMS_ITS | Encounter Summary ---
Author Organization [facility] Address [facility] [place] [address] Care Team Providers Care Manufacturing Coordinator Name Role Phone Salome Mcarthur APRN Primary Care Provider [phone] Reason for Visit * Auth/Cert Specialty Diagnoses / Procedures Referred By Jose t Referred To Contact Diagnoses Biliary liver [...] Expiration Date Visits Re quested Visits Authorized [id number] 1 1 Encounter Details Date Type Department Care Team (Latest Contact Info) Description 09/26/2020 11:28 AM EDT - 09/26/2020 12:49 PM EDT Hospital [place] [address] Lani Wallis APRN [facility] [address] Hepatic cirrhosis, unspecified hepatic cirrhosis type, unspecified [...] Sig Dispensed Refills Start Date End Date sarahpriL (Zestril) 10 mg tablet Take 1 tablet by mouth once a day for kidney protection 06/06/2009 Victoza 2-Jl 0.6 mg/0.1 mL (18 mg/3 mL) Pen Injector Inject 1.8 mg as directed. 05/02/2020 fluticasone propionate (FLONASE) 50 mcg/actuation [employer], Suspension 1 spray daily. pramipexole (MIRAPEX) 0.125 [...] 02/06/2024 11:30 AM EDT [place] [phone] Lani Wallis, [facility] [address] 02/06/2024 12:15 PM EDT Laboratory Appointment Lab [address] [phone] 02/06/2024 1:30 PM EDT Office [place] [phone] Lani Wallis, [facility] [address] documented as of this encounter Procedures Procedure Name Priority Date/Time Associated Diagnosis Comments US ABDOMEN LIMITED HEPATOLOGY PROTOCOL Routine 09/26/2020 11:41 AM EDT Hepatic cirrhosis, unspecified hepatic cirrhosis type, unspecified whether ascites present documented in this encounter Results * US Abdomen Limited Hepatology Protocol (09/26/2020 11:41 AM EDT) Anatomical Region Laterality Modality Abdomen Ultrasound 09/26/2020 11:2 9 AM EDT Impressions 09/26/2020 11:57 AM EDT 1. Hepatomegaly with coarse parenchyma and capsular [...] mm in May 2020 5. No ascites Thank you for letting us participate in the care of this patient. ??If you are a health care provider and have any questions regarding this report, please contact the number below. ??For patients who have questions please contact the health health care manager that requested your imaging first. Electronically signed by: Meghan Cardozo MD, [facility] ([phone]), at 09/26/2020 11:48 AM Thank you for letting us participate in the care of this patient. If you are a health care provider and have any questions regarding this report, please contact the number below. For patients who have questions, please contact the health health care manager that requested your imaging first. ??Meghan Cardozo, [facility] & Dept Chair - Rad Electronically Signed Final Report ?? 09/26/2020 11:56 am Narrative 09/26/2020 11:57 AM EDT Abdominal ? (Signed Final 09/26/2020 11:56 am) PATIENT INFO: ID #: ? [id number] ?: ??41 (80 yrs)(F) Name: ? NICK MENDIETA ?Visit Date: 09/26/2020 11:29 am PERFORMED BY: Performed By: ? Crista Zhong RDMS Attending: ?Juliane GALLO, Meghan Ventura Referred By: ?LANI WALLIS Secondary Phy.: ?? LANI WALLIS SKIVING MACHINE OPERATOR Location: ? [place] SERVICE(S) [facility]: [facility] - Hepatology Protocol - Abdominal ? 51736 Limited Survey Single Organ or Quadrant - [id number] INDICATIONS: cirrhosis, screen for hcc COMPARISON: US: Hepatology 05/19/20 ------ LIVER: ------ Right Lobe Length: ?? 21.0 ?? cm Echogenicity/Echotexture: ?? Coarse parenchyma with capsular ? nodularity Portal Veins: ?Hepatopetal -------- Lesions: -------- # ?Date ?Location ?Description ?L ?AP ?TV (cm) ?09/26/20 ?Posterior ? Echogenic ? 0.6 ?0.4 ? 0.7 ?Left Lobe Comment: ?Calculus seen adjacent to the MPV measuring ? 9mm. GALLBLADDER: Focal Tenderness: ?Negative sonographic Marino's sign Comment: ?Cholecystectomy BILIARY TRACT: Intrahepatic Ducts: ?? Normal Extrahepatic Ducts: ?? Normal Common Duct Size: ? 8.0 ? mm FLUID COLLECTIONS: No ascites in the imaged RUQ & RLQ. Procedure Note Meghan Cardozo MD - 09/26/2020 Abdominal (Signed Final 09/26/2020 11:56 am) PATIENT INFO: ID #: [id number] : 42 (80 yrs)(F) Name: NICK MENDIETA Visit Date: 09/26/2020 11:29 am PERFORMED BY: Performed By: Crista Zhong RDMS Attending: Meghan Cardozo MD Referred By: LANI WALLIS [facility] Phy.: LANI WALLIS APRN Location: [place] SERVICE(S) PROVIDED: [facility] - Hepatology Protocol - Abdominal 21990 Limited Survey Single Organ or Quadrant - [id number] INDICATIONS: cirrhosis, screen for hcc COMPARISON: US: Hepatology 05/19/20 ------ LIVER: ------ Right Lobe Length: 21.0 cm Echogenicity/Echotexture: Coarse parenchyma with capsular nodularity Portal Veins: Hepatopetal -------- Lesions: -------- # Date Location Description L AP TV (cm) 09/26/20 Posterior Echogenic 0.6 0.4 0.7 Left Lobe Comment: Calculus seen adjacent to the MPV measuring 9mm. GALLBLADDER: Focal Tenderness: Negative sonographic Marino's sign Comment: Cholecystectomy BILIARY TRACT: Intrahepatic Ducts: Normal Extrahepatic Ducts: Normal Common Duct Size: 8.0 mm FLUID COLLECTIONS: No ascites in the imaged RUQ & RLQ. IMPRESSION 1. Hepatomegaly with coarse parenchyma and capsular [...] mm in May 2020 5. No ascites Thank you for letting us participate in the care of this patient. If you are a health care provider and have any questions regarding this report, please contact the number below. For patients who have questions please contact the health health care manager that requested your imaging first. Electronically signed by: Meghan Cardozo MD, [facility] ([phone]), at 09/26/2020 11:48 AM Thank you for letting us participate in the care of this patient. If you are a health care provider and have any questions regarding this report, please contact the number below. For patients who have questions, please contact the health health care manager that requested your imaging first. Meghan Cardozo [facility] & Dept Chair - Rad Electronically Signed Final Report 09/26/2020 11:56 am Lani Wallis APRN IMG US GEN ORDERAB LES documented in this encounter Visit Diagnoses Diagnosis Hepatic cirrhosis, unspecified hepatic cirrhosis type, unspecified whether ascites present documented in this encounter Care Teams Manufacturing Coordinator Relationship Specialty Start Date End Date Salome Mcarthur, [employer] [address] [place] [address] PCP - General Family Medicine 05/30/15 documented as of this encounter
--- OUTSIDE RECORDS SUMMARY | 2023-12-02 18:35 | XMS_ITS | Encounter Summary ---
Author Organization [facility] Address [facility] [place] [address] Care Team Providers Care Real Estate Legal Secretary Name Role Phone Salome Mcarthur APRN Primary Care Provider [phone] Encounter Details Date Type Department Care Team (Latest Contact Info) Description 03/12/2019 10:01 AM EST - 03/12/2019 11:59 PM [facility] [[email or web address] Hospital [place] [phone] Molly Wallis FRUIT SHIPPER [facility] [place] [address] Hepatic cirrhosis, unspecified hepatic cirrhosis type, unspecified [...] protection 06/06/2009 fluticasone propionate (FLONASE) 50 mcg/actuation [place], Suspension 1 spray daily. pramipexole (MIRAPEX) 0.125 [...] 02/06/2024 11:30 AM EDT [place] [address] Molly Wallis, [facility] [place] [address] 02/06/2024 12:15 PM EDT Laboratory Appointment Lab [address]L [place] [address] 02/06/2024 1:30 PM EDT Office Visit Gastroenterology at [facility] [place] [phone] Molly Wallis, [facility] [place] [address] documented as of this encounter Procedures Procedure Name Priority Date/Time Associated Diagnosis Comments US ABDOMEN LIMITED HEPATOLOGY PROTOCOL Routine 03/12/2019 11:11 AM EST Hepatic cirrhosis, unspecified hepatic cirrhosis type, unspecified whether ascites present documented in this encounter Results * US Abdomen Limited Hepatology Protocol (03/12/2019 [...] below. Electronically signed by: Jean Claude Bautista [facility] ([phone]), at 03/12/2019 1:48 PM ? Jean Claude Bautista, Staff Physician Electronically Signed Final Report ?? 03/12/2019 01:55 pm Narrative 03/12/2019 1:55 PM EST Abdominal ? (Signed Final 03/12/2019 01:55 pm) PATIENT INFO: ID #: ? [id number] ?: ??42 (78 yrs) Name: ? MILKA MENDIETA ?Visit Date: 03/12/2019 11:07 am PERFORMED BY: Performed By: ? Tigist Castellanos RDMS Attending: ?Lily GALLO, Jean Claude [place] Resident: ? Ruchi GALLO, Kal Melida Referred By: ?MOLLY WALLIS Secondary Phy.: ?? MOLLY WALLIS FRUIT SHIPPER Location: ? [place] SERVICE(S) PROVIDED: ??[facility] - Hepatology Protocol - Abdominal ? 19424 ??Limited Survey Single Organ or Quadrant - ??[id number] INDICATIONS: ??cirrhosis, survey for hcc ------ LIVER: [...] 03/12/2019 01:55 pm) PATIENT INFO: ID #: [id number] : 42 (78 yrs) Name: MILKA MENDIETA Visit Date: 03/12/2019 11:07 am PERFORMED BY: Performed By: Tigist Castellanos RDMS Attending: Jean Claude Bautista MD Resident: Kal Hopper MD Referred By: MOLLY WALLIS [facility] Phy.: MOLLY WALLIS APRN Location: [place] SERVICE(S) PROVIDED: [facility] - Hepatology Protocol - Abdominal 33980 Limited Survey Single Organ or Quadrant - [id number] INDICATIONS: cirrhosis, survey for hcc ------ LIVER: [...] below. Electronically signed by: Jean Claude Bautista [facility] ([phone]), at 03/12/2019 1:48 PM Jean Claude Bautista, Staff Physician Electronically Signed Final Report 03/12/2019 01:55 pm Molly Wallis APRN [facility] GEN ORDERAB LES documented in this encounter Visit Diagnoses Diagnosis Hepatic cirrhosis, unspecified hepatic cirrhosis type, unspecified whether ascites present documented in this encounter Care Teams Real Estate Legal Secretary Relationship Specialty Start Date End Date Salome Mcarthur APRN [address] [place] [address] PCP - General Family Medicine 05/30/15 documented as of this encounter
--- OUTSIDE RECORDS SUMMARY | 2023-12-02 18:35 | XMS_ITS | Encounter Summary ---
Author Organization [facility] Address [facility] [place] [address] Care Team Providers Care Surplus Property Disposal Agent Name Role Phone Salome Mcarthur APRN Primary Care Provider [phone] Encounter Details Date Type Department Care Team (Latest Contact Info) Description 05/19/2020 10:31 AM EST - 05/19/2020 11:59 PM [facility] Hospital En[place] [phone] Molly Wallis ASSISTANT FRONT DESK MANAGER [facility] [place] [address] Hepatic cirrhosis, unspecified hepatic cirrhosis type, unspecified [...] directed. 05/02/2020 fluticasone propionate (FLONASE) 50 mcg/actuation [place], Suspension 1 spray daily. pramipexole (MIRAPEX) 0.125 [...] 02/06/2024 11:30 AM EDT Appointment [place] [address] Molly Wallis, [facility] [place] [address] 02/06/2024 12:15 PM EDT Laboratory Appointment Lab [address] [place] [phone] 02/06/2024 1:30 PM EDT Office Visit [place] [address] Molly Wallis, [facility] [place] [address] documented as of this encounter Procedures Procedure Name Priority Date/Time Associated Diagnosis Comments US ABDOMEN LIMITED HEPATOLOGY PROTOCOL Routine 05/19/2020 11:21 AM EST Hepatic cirrhosis, unspecified hepatic cirrhosis type, unspecified whether ascites present documented in this encounter Results * US Abdomen Limited Hepatology Protocol (05/19/2020 11:21 AM EST) Anatomical Region Laterality Modality Abdomen Ultrasound 05/19/2020 11:1 9 AM EST Impressions 05/19/2020 11:58 AM EST 1. ??Stable exam including enlarged, coarse echogenic liver with capsular nodularity consistent with clinical history of BA cirrhosis. 2. ??Unchanged 4 mm echogenic focus at the posterior left hepatic lobe and adjacent periportal calcification dating back to 02/26/2018 ultrasound. 3. ??No ascites. Hepatopedal flow I have personally reviewed the image(s) and the resident's interpretation and agree with the findings, Alisha Grove MD at 05/19/2020 11:51 AM Thank you for letting us participate in the care of this patient. For questions regarding this report, please contact the number below. ? Alisha Grove, Staff Physician Electronically Signed Final Report ?? 05/19/2020 11:57 am Narrative 05/19/2020 11:58 AM EST Abdominal ? (Signed Final 05/19/2020 11:57 am) PATIENT INFO: ID #: ? [id number] ?: ??41 (79 yrs)(F) Name: ? MILKA MENDIETA ?Visit Date: 05/19/2020 11:19 am PERFORMED BY: Performed By: ? Gabi Mtz RDMS Attending: ?Perfecto GALLO, Alisha Carpio Resident: ? Tacho Guajardo MD Referred By: ?MOLLY WALLIS Secondary Phy.: ?? MOLLY WALLIS ASSISTANT FRONT DESK MANAGER Location: ? [place] SERVICE(S) PROVIDED: ??[facility] - Hepatology Protocol - Abdominal ? 56506 ??Limited Survey Single Organ or Quadrant - ??[id number] INDICATIONS: ??cirrhosis, screen for hcc ------ LIVER: ------ Right Lobe Length: ?? 21.1 ?? cm Echogenicity/Echotexture: ?? Coarse parenchyma Comment: ?Left lobe hyperechoic area seen, meaurin.4 x ? 0.3 x 0.3cm. Left lobe calcification seen, ? measurin.8 cm. GALLBLADDER: Focal Tenderness: ?Negative sonographic Marino's sign Comment: ?S/P Cholecystectomy BILIARY TRACT: Intrahepatic Ducts: ?? Normal Extrahepatic Ducts: ?? Normal Common Duct Size: ? 4.0 ? mm Procedure Note Alisha Grove MD - 05/19/2020 Abdominal (Signed Final 05/19/2020 11:57 am) PATIENT INFO: ID #: [id number] : 42 (79 yrs)(F) Name: MILKA MENDIETA Visit Date: 05/19/2020 11:19 am PERFORMED BY: Performed By: Gabi Mtz RDMS Attending: Alisha Grove MD Resident: Tacho Guajardo MD Referred By: MOLLY WALLIS Secondary Phy.: MOLLY WALLIS APRN Location: [place] SERVICE(S) PROVIDED: [facility] - Hepatology Protocol - Abdominal 57004 Limited Survey Single Organ or Quadrant - [id number] INDICATIONS: cirrhosis, screen for hcc ------ LIVER: ------ Right Lobe Length: 21.1 cm Echogenicity/Echotexture: Coarse parenchyma Comment: Left lobe hyperechoic area seen, meaurin.4 x 0.3 x 0.3cm. Left lobe calcification seen, measurin.8 cm. GALLBLADDER: Focal Tenderness: Negative sonographic Marino's sign Comment: S/P Cholecystectomy BILIARY TRACT: Intrahepatic Ducts: Normal Extrahepatic Ducts: Normal Common Duct Size: 4.0 mm IMPRESSION 1. Stable exam including enlarged, coarse echogenic liver with capsular nodularity consistent with clinical history of BA cirrhosis. 2. Unchanged 4 mm echogenic focus at the posterior left hepatic lobe and adjacent periportal calcification dating back to 02/26/2018 ultrasound. 3. No ascites. Hepatopedal flow I have personally reviewed the image(s) and the resident's interpretation and agree with the findings, Alisha Grove MD at 05/19/2020 11:51 AM Thank you for letting us participate in the care of this patient. For questions regarding this report, please contact the number below. Electronically signed by: Alisha Grove MD, [facility] ([phone]), at 05/19/2020 11:51 AM Alisha Grove, Staff Physician Electronically Signed Final Report 05/19/2020 11:57 am Molly [facility] GEN ORDERAB LES documented in this encounter Visit Diagnoses Diagnosis Hepatic cirrhosis, unspecified hepatic cirrhosis type, unspecified whether ascites present documented in this encounter Care Teams Surplus Property Disposal Agent Relationship Specialty Start Date End Date Salome Mcarthur APRN [address] [place] [address] PCP - General Family Medicine 05/30/15 documented as of this encounter
--- OUTSIDE RECORDS SUMMARY | 2023-12-02 18:35 | XMS_ITS | Encounter Summary ---
Author Organization [facility] Address [facility] [place] [address] Care Team Providers Care Routing Machine Operator Name Role Phone Salome Mcarthur APRN Primary Care Provider [phone] Encounter Details Date Type Department Care Team (Late st Contact Info) Description 05/19/2020 12:30 PM EST Office [place] [address] Molly Wallis APRN [facility] [place] [address] Hepatic cirrhosis, unspecified hepatic cirrhosis type, unspecified [...] Sign Reading Time Taken Comments Blood Pressure 112/65 05/19/2020 1:57 PM EST Pulse 94 05/19/2020 1:57 PM EST Temperature - - Respiratory Rate - - Oxygen Saturation - - Inhaled Oxygen Concentration - - Weight 63.1 kg (139 lb 3.2 oz) 05/19/2020 1:57 P M EST Height - - Body Mass Index 26.3 10/15/2019 2:09 PM EDT documented in this encounter Progress Notes * Molly Wallis APRN - 05/19/2020 12:30 PM EST Hepatology Follow Up Note Patient: Milka Mendieta Gender: female : 1940 Provider: Molly Wallis NP Referring Physician: Salome Mcarthur APRN HISTORY OF PRESENT ILLNESS Milka Mendieta is a 79 y.o. year old female With BA Cirrhosis who returns today for follow up. She has been doing okay. Trying to figure out mediations for her diabetes, she recently stopped Glipizide and started Victoza, which has been working better for her. She is no longer getting such lowblood sugars. They were thinking about moving, but haven't moved out of [place]. She denies any ascites, blood in stool, melena. PAST MEDICAL/SURGICAL HISTORY 1. 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 Fibroscan 06/28/15: 28.4 kPa; 6% IQR; 100% success rate, F4 ?? Risk factors: diabetes, hyperlipidemia, HTN, overweight. Strong family hx of BA cirrhosis. ?? Ultrasound 07/22/2015: no lesions ?? EGD 07/14/2015: no varices, gastric ulcers (2). ?? EGD 09/2019: small varices 2 Diabetes 3. Hypertension 4. Elevated cholesterol MEDICATIONS Outpatient Medications Marked as Taking for the 05/19/20 encounter (Office Visit) with Molly Wallis APRN Medication Sig Dispense Refill ??? lisinopril (PRINIVIL;ZESTRIL) 20 mg Tablet Take 20 mg by mouth daily. ??? pramipexole (MIRAPEX) 0.125 mg Tablet ??? lactulose (CHRONULAC) 20 gram/30 mL Solution [...] Apply 1 Application topically as needed. ??? [place]-3 Fatty Acids-Vitamin E (FISH OIL) 1,000 mg Cap Take 3,000 mg by mouth daily. ??? multivitamin (THERAGRAN) tablet Take 1 tablet by mouth daily. ??? amitriptyline (ELAVIL) 50 mg tablet Take 50 mg by mouth nightly. Current Facility-Administered Medications for the 05/19/20 encounter (Office Visit) with Molly Wallis APRN [...] 30 of acute hepatitis PHYSICAL EXAM Vitals: 05/19/20 1357 BP: 112/65 Pulse: 94 Weight: 63.1 kg (139 lb 3.2 oz) Body mass index is 26.3 kg/m??. Exam: Appears well. No apparent distress. Lab Results Component Value Date WBC 9.8 (H) 05/19/2020 HGB 14.1 05/19/2020 HCT 42.8 05/19/2020 MCV 92.0 05/19/2020 PLATELET 130 (L) 05/19/2020 Recent Labs 05/19/20 1025 INR 1.1 Chemistry Component Value Date/Time NA 140 05/19/2020 1025 K 4.4 05/19/2020 1025 CL 99 05/19/2020 1025 CO2 27 05/19/2020 1025 BUN 24 (H) 05/19/2020 1025 CREATININE 0.78 05/19/2020 1025 Component Value Date/Time CALCIUM 10.8 (H) 05/19/2020 1025 ALKPHOS 94 05/19/2020 1025 AST 23 05/19/2020 1025 ALT 26 05/19/2020 1025 BILITOT 0.7 05/19/2020 1025 MELD-Na score: 7 at 05/19/2020 10:25 AM MELD score: 7 at 05/19/2020 10:25 AM Calculated from: Serum Creatinine: 0.78 mg/dL (Rounded to 1 mg/dL) at 05/19/2020 10:25 AM Serum Sodium: 140 mmol/L (Rounded to 137 mmol/L) at 05/19/2020 10:25 AM Total Bilirubin: 0.7 mg/dL (Rounded to 1 mg/dL) at 05/19/2020 10:25 AM INR(ratio): 1.1 at 05/19/2020 10:25 AM Age: 79 years 10 months US 05/19/2020: 1. Stable exam including enlarged, coarse echogenic liver with capsular nodularity consistent with clinical history of BA cirrhosis. 2. Unchanged 4 mm echogenic focus at the posterior left hepatic lobe and adjacent periportal calcification dating back to 02/26/2018 ultrasound. 3. No ascites. Hepatopedal flow ASSESSMENT/PLAN Milka Mendieta is a 79 y.o. 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 1. Cirrhosis. Diagnosed by fibroscan. Well compensated. MELD 7. 2. BA. Her metabolic risks include diabetes, hypertension, elevated cholesterol, overweight. She has been working on controlling her blood sugar and we discussed that this is a great goal for also treating her BA. We discussed that her current medications: Metformin and Victoza are excellent agents for also treating her fatty liver, as well kyra diabetes. 3. Portal hypertension. EGD done last month (09/2019) showed small varices, plan to repeat in 1 year. Will put in order today, can try to coordinate with next US. If varices appear larger can start non-selective beta reva, may consider decreasing Lisinopril. 4. HCC surveillance. US today with no concerning lesions. Can repeat US in 6 months. 5. Hepatic encephalopathy. She has Lactulose at home, thinking appears clear today. 6. Lung nodule. Followed by PCP, we did not discuss today. 7. Preventative health. She should have annual flu vaccine. Plan: - Follow up in 6 months with labs, US and EGD to screen for varices. Molly Wallis APRN Section of Gastroenterology [place] [address] Copy: Salome Mcarthur APRN [address] / [place] [address] Time spent reviewing records prior to this encounter: 5 minutes Time spent during encounter with patient including counselin minutes Time spent documenting encounter on date of service: 12 minutes Approximate total time devoted to this single encounter on date of service: 37 minutes documented in this encounter Plan of Treatment Upcoming Encounters Date Type Department Care Team (Late st Contact Info) Description 02/06/2024 11:30 AM EDT Appointment [place] [phone] Molly Wallis APRN [facility] [place] [address] 02/06/2024 12:15 PM EDT Laboratory Appointment Lab [address] [place] [address] 02/06/2024 1:30 PM EDT Office [place] [phone] Molly Wallis APRN [facility] [place] [address] Scheduled Orders Name Type Priority Associated Diagnoses Orde r Schedule ENDOSCOPY CASE REQUEST: EGD, UPPER GI ENDOSCOPY Procedures Routine Hepatic cirrhosis, unspecified hepatic cirrhosis type, unspecified whether ascites present Ordered: 05/19/2020 documented as of this encounter Results * Prothrombin Time (12/06/2020 12:34 PM EDT) Prothrombin Time 11.9 9.4 - 12.5 sec [facility] International Normalization Ratio 1.0 [facility] Comment: An INR <2.0 indicates [...] Lab Molly Wallis APRN HEMATOLOGY ORDERAB LES [facility] [place] [address] * (ABNORMAL) Comprehensive metabolic panel (non-fasting) (12/06/2020 12:34 PM EDT) Glucose 90 65 - 199 mg/dL [facility] Comment:Diabetes: >=200 mg/d L plus symptoms Blood Urea Nitrogen 23(H) 8 - 18 mg/dL [facility] Creatinine 0.78 0.70 - 1.20 mg/dL [facility] Sodium 141 135 - 145 mmol/L [facility] Potassium 4.4 3.5 - 5.0 mmol/L [facility] Comment: Please note: ??Patients with WBC >100,000 may have falsely elevated Potassium levels. ??For accurate Potassium quantification in these patients send serum separator tube (gold top) for subsequent determinations. ??Contact the Clinical Chemistry Laboratory if there are any questions. Chloride 103 98 - 107 mmol/L [facility] Carbon Dioxide 26 22 - 31 mmol/L [facility] Anion Gap 12 5 - 15 mmol/L [facility] Calcium 10.2 8.5 - 10.5 mg/dL [facility] Protein, Total 6.9 6.1 - 8.0 gm/dL [facility] Albumin 4.2 3.2 - 5.2 gm/dL [facility] Aspartate Aminotransferase 35(H) 0 - 30 unit/L [facility] Alanine Aminotransferase 36(H) 0 - 30 unit/L [facility] Alkaline Phosphatase 82 35 - 105 unit/L [facility] Bilirubin, Total 0.7 0.2 - 1.3 mg/dL [facility] Est Glomerular Filtration Rate 72 >=60 mL/min/1. 73 m?? [facility] Comment: This patient? s estimated [...] Lab Molly Wallis APRN CHEMISTRY ORDERABL ES [facility] [place] [address] * US Abdomen Limited Hepatology Protocol (09/26/2020 [...] who have questions please contact the health career advisor that requested your imaging first. Electronically signed by: Meghan Cardozo MD, [facility] ([phone]), at 09/26/2020 11:48 AM Thank you for letting us participate in the care of this patient. If you are a health care provider and have any questions regarding this report, please contact the number below. For patients who have questions, please contact the health career advisor that requested your imaging first. ??Meghan Cardozo, [facility] & Dept Chair - Rad Electronically Signed Final Report ?? 09/26/2020 11:56 am Narrative 09/26/2020 11:57 AM EDT Abdominal ? (Signed Final 09/26/2020 11:56 am) PATIENT INFO: ID #: ? [id number] ?: ??[birth year] (80 yrs)(F) Name: ? MILKA MENDIETA ?Visit Date: 09/26/2020 11:29 am PERFORMED BY: Performed By: ? Crista Zhong RDMS: ?Juliane GALLO, Meghan Ventura Referred By: ?MOLLY WALLIS Secondary Phy.: ?? MOLLY WALLIS [employer] Location: ? [place] [facility] Protocol - Abdominal ? 35001 Limited Survey Single Organ or Quadrant - [id number] INDICATIONS: cirrhosis, screen for hcc COMPARISON: US: [...] 09/26/2020 11:56 am) PATIENT INFO: ID #: [id number] : [birth year] (80 yrs)(F) Name: MILKA MENDIETA Visit Date: 09/26/2020 11:29 am PERFORMED BY: Performed By: Crista Zhong RDMS Attending: Meghan Cardozo MD Referred By: MOLLY WALLIS [facility] Phy.: MOLLY WALLIS APRN Location: [place] [facility] Protocol - Abdominal 60480 Limited Survey Single Organ or Quadrant - [id number] INDICATIONS: cirrhosis, screen for hcc COMPARISON: US: [...] who have questions please contact the health career advisor that requested your imaging first. Electronically signed by: Meghan Cardozo MD, [facility] ([phone]), at 09/26/2020 11:48 AM Thank you for letting us participate in the care of this patient. If you are a health care provider and have any questions regarding this report, please contact the number below. For patients who have questions, please contact the health career advisor that requested your imaging first. Meghan Cardozo [facility] & Dept Chair - Rad Electronically Signed Final Report 09/26/2020 11:56 am Molly Wallis APRN IMG US GEN ORDERAB LES documented in this encounter Visit Diagnoses Diagnosis Hepatic cirrhosis, unspecified hepatic cirrhosis type, unspecified whether ascites present Hepatic cirrhosis, unspecified hepatic cirrhosis type, unspecified whether ascites present documented in this encounter Care Teams Routing Machine Operator Relationship Specialty Start Date End Date Salome Mcarthur, [employer] SHE[employer]KER [address] [place] [address] PCP - General Family Medicine 05/30/15 documented as of this encounter
--- OUTSIDE RECORDS SUMMARY | 2023-12-02 18:35 | XMS_ITS | Encounter Summary ---
Author Organization [facility] Address [facility] [place] [address] Care Team Providers Care Car Hop Name Role Phone Salome Mcarthur APRN Primary Care Provider [phone] Encounter Details Date Type Department Care Team (Latest Contact Info) Description 10/30/2019 10:30 AM EDT TH Visit (TeleHealth) [place] [address] Molly Cui APRN [facility] [place] [address] Hepatic cirrhosis, unspecified hepatic cirrhosis type, unspecified [...] as of this encounter Progress Notes * Molly Cui APRN - 10/30/2019 10:30 AM EDT Hepatology Follow Up Note Patient: Milka Corbett Gender: female : 1940 Provider: Molly Cui NP Referring Physician: Salome Mcarthur APRN HISTORY OF PRESENT ILLNESS Milka Corbett is a 79 y.o. year old female With BA Cirrhosis who returns today for follow up. We followed up today by telephone due to the COVID-19 pandemic. She started on Byetta for her diabetes. Her blood sugar this morning was 110. Her blood sugar in the evenings is often elevated. She has lost some weight, the Richard has helped with that. She has been on an antibiotic which has caused some diarrhea. Has been taking Keflex for a bladder infection. She seems to be doing okay right now. She had a bladder infection recently and spent the night in the hospital. She notices that she sometimes has problems finding words or that her memory is not as good - some days are worse than others. She has lactulose at home but does not take it regularly. She denies any ascites, blood in stool, [...] Outpatient Medications Marked as Taking for the 10/30/19 encounter (Appointment) with Molly Cui APRN Medication Sig Dispense Refill ??? Gretchenetta 10 mcg/dose(250 mcg/mL) 2.4 mL Pen Injector ??? lisinopril (PRINIVIL;ZESTRIL) 20 mg Tablet Take 20 mg by mouth daily. ??? fluticasone propionate (FLONASE) 50 mcg/actuation Keyser, Suspension 1 spray daily. ??? pramipexole (MIRAPEX) [...] mouth as needed. Reported on 08/21/2016 ??? [place]-3 Fatty Acids-Vitamin E (FISH OIL) 1,000 mg Cap Take 3,000 mg by mouth daily. ??? multivitamin (THERAGRAN) tablet Take 1 tablet by mouth daily. ??? amitriptyline (ELAVIL) 50 mg tablet Take 50 mg by mouth nightly. Current Facility-Administered Medications for the 10/30/19 encounter (Appointment) with Molly Cui APRN Medication Dose Route [...] family. Sister of BA cirrhosis at age 64 Does not drink alcohol (other than 1-2x/year). [...] age 30 of acute hepatitis PHYSICAL EXAM No vitals or exam done over the phone Lab Results Component Value Date WBC 7.3 10/29/2019 HGB 13.5 10/29/2019 HCT 40.5 10/29/2019 MCV 91.6 10/29/2019 PLATELET 122 (L) 10/29/2019 Recent Labs 10/29/19 1513 INR 1.1 Chemistry Component Value Date/Time NA 140 10/29/2019 1513 K 4.2 10/29/2019 1513 CL 98 10/29/2019 1513 CO2 27 10/29/2019 1513 BUN 19 (H) 10/29/2019 1513 CREATININE 0.67 (L) 10/29/2019 1513 Component Value Date/Time CALCIUM 9.9 10/29/2019 1513 ALKPHOS 73 10/29/2019 1513 AST 28 10/29/2019 1513 ALT 37 (H) 10/29/2019 1513 BILITOT 0.6 10/29/2019 1513 MELD-Na score: 7 at 10/29/2019 3:13 PM MELD score: 7 at 10/29/2019 3:13 PM Calculated from: Serum Creatinine: 0.67 mg/dL (Rounded to 1 mg/dL) at 10/29/2019 3:13 PM Serum Sodium: 140 mmol/L (Rounded to 137 mmol/L) at 10/29/2019 3:13 PM Total Bilirubin: 0.6 mg/dL (Rounded to 1 mg/dL) at 10/29/2019 3:13 PM INR(ratio): 1.1 at 10/29/2019 3:13 PM Age: 79 years MRI 10/29/19: Results pending ASSESSMENT/PLAN Milka Corbett is a 79 y.o. 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 1. Cirrhosis. Diagnosed by fibroscan. Well compensated. MELD 7. 2. BA. Her metabolic risks include diabetes, hypertension, elevated cholesterol, overweight. She has been working on controlling her blood sugar and we discussed that this is a great goal for also treating her BA. GLP-1 agonists (such as Byetta) also can decrease hepatic steatosis. She has alsolost some weight. Encouraged her efforts. 3. Portal hypertension. EGD done last month (09/2019) showed small varices, plan to repeat in 1 year. 4. HCC surveillance. MRI today is still pending. Will call her with results. AFP is normal. 5. Hepatic encephalopathy. She reports some intermittent mild symptoms (difficulty word finding). Discussed that she could take Lactulose on days when she notices more symptoms. 6. Lung nodule. Followed by PCP, we did not discuss today. 7. Preventative health. She should have annual flu vaccine. Plan: - Follow up by phone with results of MRI - Likely follow up in 6 months with labs and US, pending results of MRI. Molly Cui APRN Section of Gastroenterology [place] [address] Copy: Salome Mcarthur APRN [address] / [place] [address] Patient verbally consents to this telephone visit and understands that this visit may be billed, similar to a clinic office visit. I provided care to the patient today via telephone call, 17 minutes telephone visit was spent in discussion with patient on above. documented in this encounter Plan of Treatment Upcoming Encounters Date Type Department Care Team (Late st Contact Info) Description 02/06/2024 11:30 AM EDT Appoint[place] [phone] Molly Cui APRN [facility] [place] [address] 02/06/2024 12:15 PM EDT Laboratory Appointment Lab [address] [place] [phone] 02/06/2024 1:30 PM EDT Office [place] [phone] Molly Cui APRN [facility] [place] [address] documented as of this encounter Visit Diagnoses Diagnosis Hepatic cirrhosis, unspecified hepatic cirrhosis type, unspecified whether ascites present documented in this encounter Care Teams Car Hop Relationship Specialty Start Date End Date Salome Mcarthur, [employer]ING [employer]ER [address] [place] [address] PCP - General Family Medicine 05/30/15 documented as of this encounter
--- OUTSIDE RECORDS SUMMARY | 2023-12-02 18:35 | XMS_ITS | Encounter Summary ---
Author Organization [place] [address] Care Team Providers Care Bar Attendant Name Role Phone Salome Mcarthur APRN Primary Care Provider [phone] Reason for Visit * Auth/Cert Specialty Diagnoses / Procedures Referred By Jose bermudez Referred To Contact Diagnoses 1 yr surv from 09/17/18 Procedures PRO UPPER GI ENDOSCOPY, DIAGNOSTIC EGD, UPPER GI ENDOSCOPY Referral ID Status Reason Start Date Expiration Date Visits Re quested Visits Authorized [id number] 1 1 Encounter Details Date Type Department Care Team (Latest Contact Info) Description 09/23/2019 10:29 AM EDT - 09/23/2019 2:07 PM EDT Hospital En[place] [phone] Juliette Chauhan MD [facility] [place] [address] Discharge Disposition: Home Social History Tobacco Use [...] Sign Reading Time Taken Comments Blood Pressure 115/63 09/23/2019 1:20 PM EDT Pulse 116 09/23/2019 12:10 PM EDT Temperature 36.7 ??C (98.1 ??F) 09/23/2019 10:50 AM E DT Respiratory Rate 20 09/23/2019 1:20 PM EDT Oxygen Saturation 91% 09/23/2019 1:25 PM EDT Inhaled Oxygen Concentration - - Weight - - Height - - Body Mass Index - - documented in this encounter Discharge Instructions * Discharge Instructions* Gal Justin RN - 09/23/2019 1:53 PM EDT Upper GI Endoscopy: What to [...] the day after the procedure, use an gvuj-qbq-vceoizt spray to numb your throat. Sucking on [...] occurs, please contact your Doctor. Please call [phone] before 8pm Mon-Fri with problems, questions or concerns. If you call after 8pm or on weekends, call the Hospital at [phone] and ask to speak to the Television Inspector clay pigeon loader and the manual control auger press operator will contact that person for you. When should you call for help? Call [phone] anytime you think you may need emergency [...] any problems. Where can you learn more? [facility] View your After Visit Summary and more online at [email or web address] If you would like to provide feedback about your hospital experience, please call the Office of Patient and Family Relations at . If you have received this After Visit Summary in error, please immediately return it in person to the department, or notify the [facility] Privacy Office by calling toll free at between the hours of 8AM and 5PM to arrange for our retrieval of the documents at no cost to you. Content Version: 12.2 ?? [id number] [employer]. Care instructions adapted under license by [facility]. If you have questions about a medical condition or this instruction, always ask your healthcare professional. [employer] disclaims any warranty or liability for your use of this information. documented in this encounter Medications at Time of Discharge Medication Sig Dispensed Refills Start Date End Date lisinopriL (Zestril) 10 mg tablet Take 1 tablet by mouth once a day for kidney protection 06/06/2009 fluticasone propionate (FLONASE) 50 mcg/actuation [place], Suspension 1 spray daily. pramipexole (MIRAPEX) 0.125 [...] H&P Notes * Juliette Chauhan MD - 09/23/2019 11:43 AM EDT Patient Name: Milka Corbett Patient Age: 79 y.o. Birthdate: 1940 Admit date: 09/23/2019 Attending Physician: Juliette Chauhan MD Gastroenterology and Hepatology Pre-Procedure History and Physical Exam Procedure: EGD: Indication: f/u of small esophageal varices Patient Active Problem List Diagnosis Code [...] 02/06/2024 11:30 AM EDT [place] [address] Molly Cui, [facility] DR GASTROENTEROLOGY [place], [place] [id number] 02/06/2024 12:15 PM EDT Laboratory Appointment Lab [address] [place] [address] 02/06/2024 1:30 PM EDT Office [place] [address] Molly Cui, [facility]STR[facility]OLOGY [place], [place] [id number] documented as of this encounter Procedures Procedure Name Priority Date/Time Associated Diagnosis Comments Upper GI Endoscopy, Diagnostic (57403) 09/23/2019 11:55 AM EDT 1 yr surv from 09/17/18 UPPER GI ENDOSCOPY Routine 09/23/2019 11 :41 AM EDT documented in this encounter Results * UPPER GI ENDOSCOPY (09/23/2019 11:41 AM EDT) UPPER GI ENDOSCOPY [facility] Endoscopy Procedure Date: 09/23/2019 11:41 AM ? Patient Name: Milka Corbett ? Date of : 1940 ? Age: 79 ? Order #: [id number] ? Instrument Name: [id number] ? Procedure: ? Upper GI endoscopy Indications: ? Follow-up of esophageal varices Providers: ? Juliette Chauhan MD, Bertha Lizarraga ? TRISHA Oleary, Fauzia Castillo ? TRISHA Kang, Genoveva Webber, Handwriting Expert Referring : ?Sophia Mcarthur MD Medicines: ? Midazolam 2 mg IV, Fentanyl 100 ? micrograms IV Complications: ? No immediate complications. Procedure: ? Pre-Anesthesia Assessment: ? - Prior to the procedure, a History ? and Physical was performed, and ? patient medications and allergies ? were reviewed. The patient's ? tolerance of previous anesthesia was ? also reviewed. The risks and benefits ? of the procedure and the sedation ? options and risks were discussed with ? the patient. All questions were ? answered, and informed consent was ? obtained. Prior Anticoagulants: The ? patient has taken no previous ? anticoagulant or antiplatelet agents. ? ASA Grade Assessment: II - A patient ? with mild systemic disease. After ? reviewing the risks and benefits, the ? patient was deemed in satisfactory ? condition to undergo the procedure. ? The procedure, indications, benefits, ? [...] ? upper GI endoscopy was accomplished ? without difficulty. The patient ? tolerated the procedure well. ? Findings: ? Esophagogastric landmarks were identified: the Z-line ? was found at 35 cm, the upper extent of the gastric ? folds was found at 36 cm and the site of hiatal ? narrowing was found at 36 cm from the incisors. ? Small (< 5 mm) varices were found in the lower third ? of the esophagus. ? The entire examined stomach was normal. [...] ?- Repeat upper endoscopy in 1 year ? for surveillance. ? - Return to referring physician. ? Procedure Code(s): ?? --- Professional --- ? 43719, Esophagogastroduod enoscopy, ? flexible, transoral; diagnostic, ? including collection of specimen(s) ? by brushing or washing, when ? performed (separate procedure) CPT copyright 2019 [employer]. All rights reserved. The codes documented in this report are preliminary and upon lead etl developer review may be revised to meet current compliance requirements. Attending Participation: ? I personally performed the entire procedure. ? Juliette Chauhan MD Juliette Chauhan MD 09/23/2019 12:19:55 PM This report has been signed electronically. Number of Addenda: 0 Note Initiated On: 09/23/2019 11:41 AM PROVATION 09/23/2019 11:4 1 AM EDT Salome Mcarthur PHARMACY CLINICAL COORDINATOR GENERAL SURGICAL OR DERABLES PROVATION documented in this encounter Visit Diagnoses Not on filedocumented in this encounter Administered Medications Inactive Administered Medications - up to 3 most recent administrations Medication Order MAR Action Action Date Dose Rate Site lactated ringers infusion 100 mL/hr, Intravenous, CONTINUOUS, Starting on Sat09/23/19 at 1130, Until Sat09/23/19 at 1607, Endoscopy (Day of Procedure) New Bag 09/23/2019 11:04 AM EDT 100 mL/hr 100 mL/hr documented in this encounter Active and Recently Administered Medications Times are shown in EDT. Continuous Medication Order 09/21/2019 09/22/2019 09/23/2019 lactated ringers infusion 100 mL/hr, Intravenous, CONTINUOUS, Starting on Sat09/23/19 at 1130, Until Sat09/23/19 at 1607, Endoscopy (Day of Procedure) 1104 (New Bag - Prov ider: David Navarro RN) PRN Medication Order 09/21/2019 09/22/2019 09/23/2019 fentaNYL 50 mcg/mL multi-dose injection (CANCELED) ONCE PRN, Starting on Sat09/23/19 at 1159, Until Sat09/23/19 at 1607, Intra-Operative (Intra-Procedure), Routine 1159 (Given - Provid er: Fauzia Kang RN)1202 (Given - Provider: Fauzia Kang RN) midazolam (PF) (VERSED) multi-dose injection (CANCELED) ONCE PRN, Starting on Sat09/23/19 at 1159, Until Sat09/23/19 at 1607, Intra-Operative (Intra-Procedure), Routine 1159 (Given - Provid er: Fauzia Kang RN)1202 (Given - Provider: Fauzia Kang RN) documented in this encounter Care Teams Bar Attendant Relationship Specialty Start Date End Date Salome Mcarthur, [address] [place] [address] PCP - General Family Medicine 05/30/15 documented as of this encounter
--- OUTSIDE RECORDS SUMMARY | 2023-12-02 18:35 | XMS_ITS | Encounter Summary ---
Author Organization [facility] Address [facility] [place] [address] Care Team Providers Care Cad Manager Name Role Phone Salome Mcarthur APRN Primary Care Provider [phone] Encounter Details Date Type Department Care Team (Latest Contact Info) Description 05/19/2020 10:25 AM EST Laboratory Appointment Lab [address] [place] [phone] Hepatic cirrhosis, unspecified hepatic cirrhosis type, unspecified [...] 02/06/2024 11:30 AM EDT [place] [phone] Molly Cui MEDICAL ARTIST [facility] [place] [address] 02/06/2024 12:15 PM EDT Laboratory Appointment Lab [address] [place] [phone] 02/06/2024 1:30 PM EDT Office [place] [phone] Molly Cui APRN [facility] [place] [address] documented as of this encounter Procedures Procedure Name Priority Date/Time Associated Diagnosis Comments HEMOGRAM Routine 05/19/2020 10:25 AM EST Hepatic cirrhosis, unspecified hepatic cirrhosis type, unspecified whether ascites present DIFFERENTIAL, AUTOMATED Routine 05/19/2020 10:25 AM EST Hepatic cirrhosis, unspecified hepatic cirrhosis type, unspecified whether ascites present HC VENIPUNCTURE Routine 05/19/2020 10:25 AM EST Hepatic cirrhosis, unspecified hepatic cirrhosis type, unspecified whether ascites present HC CBC,PLT & AUTO DIFF Routine 10:25 AM EST Hepatic cirrhosis, unspecified hepatic cirrhosis type, unspecified whether ascites present COMPREHENSIVE METABOLIC PANEL Routine 05/19/2020 10:25 AM EST Hepatic cirrhosis, unspecified hepatic cirrhosis type, unspecified whether ascites present documented in this encounter Results * (ABNORMAL) Differential, Automated (05/19/2020 10:25 AM EST) Neutrophil % 63.1 % [facility] Neutrophil Absolute 6.16(H) 1.70 - 6.10 x10(3)/mc L [facility] Lymph % 25.5 % [facility] Lymphocytes Abs 2.5 0.9 - 3.2 x10(3)/mc L [facility] Monocyte % 8.1 % [facility] Monocyte Abs 0.8 0.3 - 0.9 x10(3)/mc L [facility] Eos % 2.5 % [facility] Eosinophils Abs 0.2 0.0 - 0.4 x10(3)/mc L [facility] Basophil % 0.5 % [facility] Baso Absolute 0.0 0.0 - 0.1 x10(3)/mc L [facility] Immature Gran % 0.30 % [facility] Comment: Immature granulocytes(IG's)percentage and absolute count will include metamyelocytes, myelocytes, and promyelocytes. Blood smears from CBCs yielding IG's will be scanned manually for concordance. If this scan disagrees with the automated IG or if promyelocytes are noted, a manual differential will be performed. Immature Gran Absolute 0.03 0.00 - 0.04 x10(3)/ L [facility] Blood specimen (specimen) 05/19/2020 10:25 AM EST 05/19/2020 10:41 AM EST Narrative Resulting Agency Comment Spec In Lab Molly Cui APRN HEMATOLOGY ORDERAB LES [facility] [place] [address] * (ABNORMAL) Hemogram (05/19/2020 10:25 AM EST) White Blood Cell 9.8(H) 4.0 - 9.5 x10(3)/[facility] Red Blood Cell 4.65 4.00 - 5.21 x10(6)/ L [facility] Hemoglobin 14.1 11.7 - 15.5 gm/dL [facility] Hematocrit 42.8 35.7 - 45.8 % [facility] Mean Cell Volume 92.0 82.6 - 94.4 fL [facility] Mean Cell Hemoglobin 30.3 27.1 - 32.0 pg [facility] Mean Cell Hemoglobin Concentration 32.9 31.7 - 35.0 gm/dL [facility] Platelet 130(L) 145 - 357 x10(3)/ L [facility] RDW Standard Deviation 43.8 37.0 - 46.0 fL [facility] RDW coefficient of variation 12.9 11.5 - 14.1 % [facility] Mean Platelet Volume 11.8 7.6 - 12.9 fL [facility] NRBC% auto 0.0 % [facility] NRBC Absolute 0.000 0.000 - 0.000 x10(3)/mc L [facility] Blood specimen (specimen) 05/19/2020 10:25 AM EST 05/19/2020 10:41 AM EST Narrative Resulting Agency Comment Spec In Lab Molly Cui APRN HEMATOLOGY ORDERAB LES [facility] [place] [address] * (ABNORMAL) Comprehensive metabolic panel (non-fasting) (05/19/2020 10:25 AM EST) Glucose 112 65 - 199 mg/dL [facility] Comment:Diabetes: >=200 mg/d L plus symptoms Blood Urea Nitrogen 24(H) 8 - 18 mg/dL [facility] Creatinine 0.78 0.70 - 1.20 mg/dL [facility] Sodium 140 135 - 145 mmol/L [facility] Potassium 4.4 3.5 - 5.0 mmol/L [facility] Comment: Please note: ??Patients with WBC >100,000 may have falsely elevated Potassium levels. ??For accurate Potassium quantification in these patients send serum separator tube (gold top) for subsequent determinations. ??Contact the Clinical Chemistry Laboratory if there are any questions. Chloride 99 98 - 107 mmol/L [facility] Carbon Dioxide 27 22 - 31 mmol/L [facility] Anion Gap 14 5 - 15 mmol/L [facility] Calcium 10.8(H) 8.5 - 10.5 mg/dL [facility] Protein, Total 7.8 6.1 - 8.0 gm/dL [facility] Albumin 4.7 3.2 - 5.2 gm/dL [facility] Aspartate Aminotransferase 23 0 - 30 unit/L [facility] Alanine Aminotransferase 26 0 - 30 unit/L [facility] Alkaline Phosphatase 94 35 - 105 unit/L [facility] Bilirubin, Total 0.7 0.2 - 1.3 mg/dL [facility] Est Glomerular Filtration Rate 73 >=60 mL/min/1. 73 m?? [facility] Comment: This patient? s estimated glomerular filtration rate (eGFR) is between 73 mL/min/1.73 m2 (patients with less muscle mass) and 84 mL/min/1.73 m2 (patients with more muscle mass) as determined by the CKD-EPI equation. Assessment of eGFR is not appropriate when creatinine concentrations are rapidly changing. For clinical decisions where creatinine clearance will affect therapy, a 24-hour urine creatinine clearance may be advised. Assignment of CKD stage 1 ? 5 for patients with an eGFR near the transition point between stages may be based on clinical assessment of muscle mass and symptoms in addition to eGFR. Blood specimen (specimen) 05/19/2020 10:25 AM EST 05/19/2020 10:41 AM EST Narrative Resulting Agency Comment Spec In Lab Molly Cui APRN CHEMISTRY ORDERABL ES [facility] [place] [address] * Prothrombin Time (05/19/2020 10:25 AM EST) Prothrombin Time 12.4 9.4 - 12.5 sec [facility] [...] depending on clinical circumstances. Blood specimen (specimen) 05/19/2020 10:25 AM EST 05/19/2020 10:41 AM EST Narrative Resulting Agency Comment Spec In Lab Molly A [place] MEDICAL ARTIST HEMATOLOGY ORDERAB LES [facility] [place] [address] documented in this encounter Visit Diagnoses Diagnosis Hepatic cirrhosis, unspecified hepatic cirrhosis type, unspecified whether ascites present documented in this encounter Care Teams Cad Manager Relationship Specialty Start Date End Date Salome Mcarthur, MEDICAL ARTIST [address] [place] [address] PCP - General Family Medicine 05/30/15 documented as of this encounter
--- OUTSIDE RECORDS SUMMARY | 2023-12-02 18:35 | XMS_ITS | Encounter Summary ---
Author Organization [facility] Address [facility] [place] [address] Care Team Providers Care Community Associate Name Role Phone Salome Mcarthur APRN Primary Care Provider [phone] Encounter Details Date Type Department Care Team (Latest Contact Info) Description 09/10/2018 12:35 PM EDT Laboratory Appointment Lab [address] [place] [phone] Hepatic cirrhosis, unspecified hepatic cirrhosis type, unspecified [...] 02/06/2024 11:30 AM EDT [place] [phone] Molly Cui VP CUSTOMER DEVELOPMENT [facility] [place] [address] 02/06/2024 12:15 PM EDT Laboratory Appointment Lab [address] [place] [phone] 02/06/2024 1:30 PM EDT Office [place] [phone] Molly Cui APRN [facility] [place] [address] documented as of this encounter Procedures Procedure Name Priority Date/Time Associated Diagnosis Comments HEMOGRAM Routine 09/10/2018 1:46 PM EDT Hepatic cirrhosis, unspecified hepatic cirrhosis type, unspecified whether ascites present DIFFERENTIAL, AUTOMATED Routine 09/10/2018 1:46 PM EDT Hepatic cirrhosis, unspecified hepatic cirrhosis type, unspecified whether ascites present PROTHROMBIN TIME Routine 09/10/2018 1:46 PM EDT Hepatic cirrhosis, unspecified hepatic cirrhosis type, unspecified whether ascites present CBC (WITH DIFF) Routine 09/10/2018 1:46 PM EDT Hepatic cirrhosis, unspecified hepatic cirrhosis type, unspecified whether ascites present COMPREHENSIVE METABOLIC PANEL Routine 09/10/2018 1:46 PM EDT Hepatic cirrhosis, unspecified hepatic cirrhosis type, unspecified whether ascites present documented in this encounter Results * Differential, Automated (09/10/2018 1:46 PM EDT) Neutrophil % 53.0 % [facility] Neutrophil Absolute 4.28 1.70 - 6.10 x10(3)/[facility] Lymph % 36.5 % [facility] Lymphocytes Abs 2.9 0.9 - 3.2 x10(3)/[facility] Monocyte % 7.6 % [facility] Monocyte Abs 0.6 0.3 - 0.9 x10(3)/[facility] Eos % 2.0 % [facility] Eosinophils Abs 0.2 0.0 - 0.4 x10(3)/[facility] Basophil % 0.5 % [facility] Baso Absolute 0.0 0.0 - 0.1 x10(3)/[facility] Immature Gran % 0.40 % [facility] Comment: Immature granulocytes(IG's)percentage and absolute count will include metamyelocytes, myelocytes, and promyelocytes. Blood smears from CBCs yielding IG's will be scanned manually for concordance. If this scan disagrees with the automated IG or if promyelocytes are noted, a manual differential will be performed. Immature Gran Absolute 0.03 0.00 - 0.04 x10(3)/mcL [facility] Blood specimen (specimen) 09/10/2018 1:46 PM EDT 09/10/2018 2:00 PM EDT Narrative Resulting Agency Comment Spec In Lab Molly Cui APRN HEMATOLOGY ORDERAB LES [facility] [place] [address] * (ABNORMAL) Hemogram (09/10/2018 1:46 PM EDT) White Blood Cell 8.1 4.0 - 9.5 x10(3)/mc L [facility] Red Blood Cell 4.63 4.00 - 5.21 x10(6)/mc L [facility] Hemoglobin 14.6 11.7 - 15.5 gm/dL [facility] Hematocrit 43.3 35.7 - 45.8 % [facility] Mean Cell Volume 93.5 82.6 - 94.4 fL [facility] Mean Cell Hemoglobin 31.5 27.1 - 32.0 pg [facility] Mean Cell Hemoglobin Concentration 33.7 31.7 - 35.0 gm/dL [facility] Platelet 135(L) 145 - 357 x10(3)/mc L [facility] RDW Standard Deviation 44.0 37.0 - 46.0 [facility] RDW coefficient of variation 12.8 11.5 - 14.1 % [facility] Mean Platelet Volume 11.3 7.6 - 12.9 fL [facility] NRBC% auto 0.0 % [facility] NRBC Absolute 0.000 0.000 - 0.000 x10(3)/mc L [facility] Blood specimen (specimen) 09/10/2018 1:46 PM EDT 09/10/2018 2:00 PM EDT Narrative Resulting Agency Comment Spec In Lab Mollyjuan a Cui VP CUSTOMER DEVELOPMENT HEMATOLOGY ORDERAB LES [facility] [place] [address] * (ABNORMAL) Comprehensive metabolic panel (non-fasting) (09/10/2018 1:46 PM EDT) Glucose 125 65 - 199 mg/dL [facility] Comment:Diabetes: >=200 mg/d L plus symptoms Blood Urea Nitrogen 18 8 - 18 mg/dL [facility] Creatinine 0.75 0.70 - 1.20 mg/dL [facility] Sodium 139 135 - 145 mmol/L [facility] Potassium 3.9 3.5 - 5.0 mmol/L [facility] Comment: Please note: ??Patients with WBC >100,000 may have falsely elevated Potassium levels. ??For accurate Potassium quantification in these patients send serum separator tube (gold top) for subsequent determinations. ??Contact the Clinical Chemistry Laboratory if there are any questions. Chloride 99 98 - 107 mmol/L [facility] Carbon Dioxide 26 22 - 31 mmol/L [facility] Anion Gap 14 5 - 15 mmol/L [facility] Calcium 10.5 8.5 - 10.5 mg/dL [facility] Protein, Total 7.9 6.1 - 8.0 gm/dL [facility] Albumin 4.7 3.2 - 5.2 gm/dL [facility] Aspartate Aminotransferase 39(H) 0 - 30 unit/L [facility] Alanine Aminotransferase 41(H) 0 - 30 unit/L [facility] Alkaline Phosphatase 69 40 - 104 unit/L [facility] Bilirubin, Total 0.7 0.2 - 1.3 mg/dL [facility] Est Glomerular Filtration Rate 77 >=60 mL/min/1. 73 m?? [facility] Comment: The eGFR was calculated using the CKD-EPI equation. As with all creatinine based estimates of kidney function, eGFR values calculated with the CKD-EPI equation are not accurate in patients with acute kidney failure, extremes of body mass or the acutely ill. [email or web address] eGFR 89 >=60 mL/min/1. 73 m?? [facility] Comment: The eGFR was calculated using the CKD-EPI equation. As with all creatinine based estimates of kidney function, eGFR values calculated with the CKD-EPI equation are not accurate in patients with acute kidney failure, extremes of body mass or the acutely ill. [email or web address] Blood specimen (specimen) 09/10/2018 1:46 PM EDT 09/10/2018 2:00 PM EDT Narrative Resulting Agency Comment Spec In Lab Molly Cui APRN CHEMISTRY ORDERABL ES [facility] [place] [address] * (ABNORMAL) Prothrombin Time (09/10/2018 1:46 PM EDT) Prothrombin Time 12.8(H) 9.4 - 12.5 sec [facility] International Normalization Ratio 1.1 [facility] Comment: An INR <2.0 [...] depending on clinical circumstances. Blood specimen (specimen) 09/10/2018 1:46 PM EDT 09/10/2018 2:00 PM EDT Narrative Resulting Agency Comment Spec In Lab Molly Sharron Cui VP CUSTOMER DEVELOPMENT HEMATOLOGY ORDERAB LES [facility] [place] [address] documented in this encounter Visit Diagnoses Diagnosis Hepatic cirrhosis, unspecified hepatic cirrhosis type, unspecified whether ascites present documented in this encounter Care Teams Community Associate Relationship Specialty Start Date End Date Salome Mcarthur, VP CUSTOMER DEVELOPMENT [address] [place] [address] PCP - General Family Medicine 05/30/15 documented as of this encounter
--- OUTSIDE RECORDS SUMMARY | 2023-12-02 18:35 | XMS_ITS | Encounter Summary ---
Author Organization [facility] Address [facility] [place] [address] Care Team Providers Care Registered Dental Assistant Name Role Phone Salome Mcarthur APRN Primary Care Provider [phone] Encounter Details Date Type Department Care Team (Late st Contact Info) Description 05/26/2020 Telephone Gastroenterology at [facility] [place] [phone] Sandra Aguilar Social History Tobacco Use Types Packs/Day Years [...] encounter Miscellaneous Notes * Telephone Encounter - Sandra Aguilar - 05/26/2020 10:27 AM EST Milka Corbett [id number] Diagnosis/Indication: cirrhosis, screen for varices. small varices seen 09/2019. Due for repeat 09/2020 1. Have you ever had a/an Upper Endoscopy before? Yes: Date 09/23/19 If yes, did you have any problems [...] Allergies to Eggs, Latex or Medications? Yes: EDH 6. Do you take any Oral Iron Supplements (Including multi-vitamins)? No 7. Do you have a history of three or more abdominal surgeries? No 8. Have you had a problem with sedation or anesthesia? No 9. Do you use a c-pap machine or oxygen tank? Neither 10. Do you take prescription narcotic pain medications, including suboxone or methodone? No 11. Do you have a preference regarding the gender of your provider? No Preference 12. Is there any other information you would like to us to note for the provider and nursing team who will perform your case? No 13. Say to patient: You must have a responsible green party who will drive you to your procedure, stay [place] for the entire duration of your procedure, and drive you home from your procedure? *Please Verify the height and weight, and adjust if height and/or weight have changed* Estimated body mass index is 26.3 kg/m?? as calculated from the following: Height as of 10/15/19: 154.9 cm (5' 1). Weight as of 05/19/20: 63.1 kg (139 lb 3.2 oz). Age:79 y.o. documented in this encounter Plan of Treatment Upcoming Encounters Date Type Department Care Team (Late st Contact Info) Description 02/06/2024 11:30 AM EDT [place] [address] Molly Cui VISUAL EDUCATION TEACHER [facility] [place] [address] 02/06/2024 12:15 PM EDT Laboratory Appointment Lab [address] [place] [address] 02/06/2024 1:30 PM EDT Office [place] [address] Molly Cui VISUAL EDUCATION TEACHER [facility] GASTROENTEROLOGY [place], [place] [phone] documented as of this encounter Visit Diagnoses Not on filedocumented in this encounter Care Teams Registered Dental Assistant Relationship Specialty Start Date End Date Salome Mcarthur APRN [address] [place] [address] PCP - General Family Medicine 05/30/15 documented as of this encounter
--- OUTSIDE RECORDS SUMMARY | 2023-12-02 18:35 | XMS_ITS | Encounter Summary ---
Author Organization [facility] Address [facility] [address] Care Team Providers Care Car Servicer Name Role Phone Salome Mcarthur APRN Primary Care Provider [phone] Encounter Details Date Type Department Care Team (Late st Contact Info) Description 09/10/2018 Telephone Gastroenterology at [facility] [place] [phone] Laura Pike Social History Tobacco Use Types [...] * Telephone Encounter - Laura Pike - 09/10/2018 3:20 PM EDT Endoscopy Checklist- EGD Ordered by:Molly Cui APRN Indication:cirrhosis,screening for varices problems w/procedure in past?no Type of sedation:IVCS Blood Thinners?:no Pacemaker/Defibrillator?:no Diabetes?:yes, takes Metformin Allergies?:yes, in chart Supplemental Iron?:no Hx of 3 or more abdominal surgeries?:yes Problems with sedation or anesthesia?:no c-pap or O2 at home?:no Narcotic strength pain meds?:no Current medical conditions? no BMI:27.21 Prep:proclear Scientist/Engineer?:yes Instructions to patient?:instructions to patient at 4L/Exit 09/10/2018~[facility] documented in this encounter Plan of Treatment Upcoming Encounters Date Type Department Care Team (Late st Contact Info) Description 02/06/2024 11:30 AM EDT Appointment [place] [address] Molly Cui, [facility] [address] 02/06/2024 12:15 PM EDT Laboratory Appointment Lab [address] [place] [phone] 02/06/2024 1:30 PM EDT Office Visit [place] [phone] Molly Cui, [facility] [address] documented as of this encounter Visit Diagnoses Not on filedocumented in this encounter Care Teams Car Servicer Relationship Specialty Start Date End Date Salome Mcarthur APRN [address] [place] [address] PCP - General Family Medicine 05/30/15 documented as of this encounter
--- OUTSIDE RECORDS SUMMARY | 2023-12-02 18:35 | XMS_ITS | Encounter Summary ---
Author Organization [facility] [place] [address] Care Team Providers Care District Superintendent Name Role Phone Salome Mcarthur APRN Primary Care Provider [phone] Reason for Visit * Auth/Cert Specialty Diagnoses / Procedures Referred By Contac t Referred To Contact Diagnoses cirrhosis,screening for varices (IVCS) prep: proclear Procedures PRO UPPER GI ENDOSCOPY, DIAGNOSTIC EGD, UPPER GI ENDOSCOPY Referral ID Status Reason Start Date Expiration Date Visits Re quested Visits Authorized [id number] 1 1 Encounter Details Date Type Department Care Team (Latest Contact Info) Description 09/17/2018 8:19 AM EDT - 09/17/2018 11:25 AM EDT Hospital Encounter [place] [phone] Juliette Chauhan MD [facility] [place] [address] Discharge Disposition: Home Social History Tobacco Use [...] better as expected. Saturday-Saturday Same Day Endo [phone] 7a-8p Otherwise contact [phone] and ask to speak to the behaviour support teacher second helper Follow-up care is a palomo part of your treatment and safety. Be sure to make and go to all appointments, and call your doctor if you are having problems. Instructions have been reviewed and patient expresses understanding Please call [phone] before 8pm Sat-Sat with problems, questions or concerns. If you call after 8pm or on weekends, call the Hospital at [phone] and ask to speak to the Plastic Mould Maker second helper and the bar machine operator production will contact that person for you. UPPER [...] WHEN SHOULD YOU CALL FOR HELP? Call [phone] anytime you think that you need emergency [...] better as expected. Saturday-Saturday Same Day Endo [phone] 7a-8p Otherwise contact [phone] and ask to speak to the behaviour support teacher second helper Follow-up care is a palomo part of [...] protection 06/06/2009 fluticasone propionate (FLONASE) 50 mcg/actuation [place], Suspension 1 spray daily. pramipexole (MIRAPEX) 0.125 [...] Electronically signed by: Kehinde Martin Gastroenterology Fellow [facility] Pager [phone] 09/17/2018 documented in this encounter Plan of Treatment Upcoming Encounters Date Type Department Care Team (Late st Contact Info) Description 02/06/2024 11:30 AM EDT Appointment [place] [phone] Molly Cui, [facility] [place] [address] 02/06/2024 12:15 PM EDT Laboratory Appointment Lab [place] [address] 02/06/2024 1:30 PM EDT Office Visit [place] [address] Molly Cui, [facility] GASTROENTEROLOGY [place], [place] [phone] documented as of this encounter Procedures Procedure Name Priority Date/Time Associated Diagnosis Comments EGD, UPPER GI ENDOSCOPY (WRVU 2.09) 09/17/2018 10:04 AM EDT cirrhosis,screening for varices (IVCS) prep: proclear UPPER GI ENDOSCOPY Routine 09/17/2018 9: 58 AM EDT documented in this encounter Results * UPPER GI ENDOSCOPY (09/17/2018 9:58 AM EDT) [facility] Signature UPPER GI ENDOSCOPY [facility] Endoscopy Procedure Date: 09/17/2018 9:58 AM ? Patient Name: Milka Corbett ? N: [id number] ? Date of : 1940 ? Age: 78 ? Order #: [id number] ? Instrument Name: [id number] ? Procedure: ? Upper GI endoscopy Indications: [...] the physician, the nurse ? and the monogram technician. The procedure was ? verified in [...] Procedure Code(s): ?? --- Professional --- ? 17039, Esophagogastroduod enoscopy, ? flexible, transoral; diagnostic, ? including collection of specimen(s) ? by brushing or washing, when ? performed (separate procedure) CPT copyright 2017 [employer]. All rights reserved. The codes documented in this report are preliminary and upon hcc coders review may be revised to meet current compliance requirements. Attending Participation: ? I was present and participated during the entire ? procedure, including non-palomo portions. ? Juliette Greer Tien, 09/17/2018 10:32:25 AM Number of Addenda: 0 Note Initiated On: 09/17/2018 9:58 AM PROVATION 09/17/2018 9:58 AM EDT Salome Mcarthur [facility] PROVATION documented in [...] RN) documented in this encounter Care Teams District Superintendent Relationship Specialty Start Date End Date Salome Mcarthur APRN [address] [place] [address] PCP - General Family Medicine 05/30/15 documented as of this encounter
--- OUTSIDE RECORDS SUMMARY | 2023-12-02 18:35 | XMS_ITS | Encounter Summary ---
Author Organization [facility] [place] [address] Care Team Providers Care Tug Master Name Role Phone Salome Mcarthur APRN Primary Care Provider [phone] Encounter Details Date Type Department Care Team (Late st Contact Info) Description 08/06/2018 Ancillary Procedure [place] [address] Ella Castle MD [address] [place] [address] Pain Social History Tobacco Use Types Packs/Day Years [...] 02/06/2024 11:30 AM EDT [place] [address] Molly Cui APRN [facility] [place] [address] 02/06/2024 12:15 PM EDT Laboratory Appointment Lab [address] [place] [address] 02/06/2024 1:30 PM EDT Office [place] [address] Molly Cui APRN [facility] [place] [address] documented as of this encounter Procedures Procedure Name Priority Date/Time Associated Diagnosis Comments REQUEST FOR 2ND READ CT CHEST Routine 08/05/2018 10:35 PM EDT Pain documented in this encounter Results * Request For 2nd Read CT Chest (08/05/2018 10:35 PM EDT) Anatomical Region Laterality Modality Chest SO Impressions 08/06/2018 4:11 PM EDT Characteristic findings of bronchial atresia, a benign developmental variant. No further evaluation necessary. Thank you for letting us participate in the care of this patient. For questions regarding this report, please contact the number below. ? Narrative 08/06/2018 4:11 PM EDT EXAMINATION: REQUEST FOR 2ND READ CT CHEST CLINICAL HISTORY: LIFELONG NON-SMOKER, 11 MM STABLE LOBULATED L NODULE SURROUNDING APT. , ? PULMONARY SEQUESTRATION??; IS THERE PULMONARY SEQUESTRATION?; What Modality is the exam? CT Scan; Body Part (please add comments as necessary): CHEST ; I believe a reinterpretation of this exam may alter care of Patient. Yes TECHNIQUE: Helical CT angiogram of the chest was performed after intravenous contrast administration of 54cc of Isovue-370. ??Thin-section reconstructions as well as coronal and sagittal MIP reformatted images were generated to aid in evaluation. COMPARISON: CT chest FINDINGS: Pulmonary arteries: Normal caliber. No intraluminal filling defects. Other cardiovascular structures: Normal heart size. No aneurysm or stenosis. Lungs and airways:? Stable oblong structure in posterior medial LEFT lower lobe measuring approximately 19 mm in length and 12 mm in maximum diameter. Structure has branching contour and is surrounded by regions of hyperinflated low-attenuation lung. The density of the structure is approximately 120 Hounsfield units, corresponding to proteinaceous material. 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 Pleura and pericardium: No significant findings. Mediastinum and hilar structures: No lymphadenopathy. Limited views of the upper abdomen: Unchanged. Slightly irregular contour of liver consistent with cirrhosis and mild splenomegaly.. Skeletal structures: No lytic or sclerotic lesions. Procedure Note Marco A Anthony MD - 08/06/2018 EXAMINATION: REQUEST FOR 2ND READ CT CHEST CLINICAL HISTORY: LIFELONG NON-SMOKER, 11 MM STABLE LOBULATED L NODULE SURROUNDING APT. , ? PULMONARY SEQUESTRATION??; IS THERE PULMONARY SEQUESTRATION?; What Modality is the exam? CT Scan; Body Part (pleaseadd comments as necessary): CHEST ; I believe a reinterpretation of this exammay alter care of Patient. Yes TECHNIQUE: Helical CT angiogram of the chest was performed afterintravenous contrast administration of 54cc of Isovue-370. Thin-sectionreconstructions as well as coronal and sagittal MIP reformatted images were generated to aidin evaluation. COMPARISON: CT chest FINDINGS: Pulmonary arteries: Normal caliber. No intraluminal filling defects. Other cardiovascular structures: Normal heart size. No aneurysm orstenosis. Lungs and airways:? Stable oblong structure in posterior medial LEFT lowerlobe measuring approximately 19 mm in length and 12 mm in maximum diameter.Structure has branching contour and is surrounded by regions of hyperinflated low-attenuation lung. The density of the structure is approximately 120 Hounsfield units, corresponding to proteinaceous material. 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 Pleura and pericardium: No significant findings. Mediastinum and hilar structures: No lymphadenopathy. Limited views of the upper abdomen: Unchanged. Slightly irregular contourof liver consistent with cirrhosis and mild splenomegaly.. Skeletal structures: No lytic or sclerotic lesions. IMPRESSION Characteristic findings of bronchial atresia, a benign developmentalvariant. No further evaluation necessary. Thank you for letting us participate in the care of this patient. Forquestions regarding this report, please contact the number below. Electronically signed by: Marco A Anthony [facility]([phone]), at 08/06/2018 4:11 PM Ella Castle MD IMG OUTSIDE INTER PRETATION ORDERABLES documented in this encounter Visit Diagnoses Diagnosis Pain Generalized pain documented in this encounter Care Teams Tug Master Relationship Specialty Start Date End Date Salome Mcartuhr, THIRD RAIL INSTALLER [address] [place] [address] PCP - General Family Medicine 05/30/15 documented as of this encounter
--- OUTSIDE RECORDS SUMMARY | 2023-12-02 18:35 | XMS_ITS | Encounter Summary ---
Author Organization [facility] [place] [address] Care Team Providers Care Mold Loft Worker Name Role Phone Salome Mcarthur APRN Primary Care Provider +[phone] Encounter Details Date Type Department Care Team (Late st Contact Info) Description 11/02/2019 Orders [place] [phone] Molly Wallis WHEAT BUYER [facility] [place] [address] Hepatic cirrhosis, unspecified hepatic cirrhosis type, unspecified [...] 02/06/2024 11:30 AM EDT [place] [address] Molly Wallis [facility] [place] [address] 02/06/2024 12:15 PM EDT Laboratory Appointment Lab [address] [address] 02/06/2024 1:30 PM EDT Office [place] [address] Molly Wallis APRN [facility] [place] [address] documented as of this encounter Results * US Abdomen Limited [...] 11:57 am) PATIENT INFO: ID #: ? [id number] ?: ??[birth year] (79 yrs)(F) Name: ? MILKA MENDIETA ?Visit Date: 05/19/2020 11:19 am PERFORMED BY: Performed By: ? Gabi Mtz RDMS Attending: ?Perfecto GALLO, Alisha Carpio Resident: ? Tacho Guajardo MD Referred By: ?MOLLY WALLIS Secondary Phy.: ?? MOLLY WALLIS WHEAT BUYER Location: ? [place] SERVICE(S) PROVIDED: ??[facility] - Hepatology Protocol - Abdominal ? 34532 ??Limited Survey Single Organ or Quadrant - ??[id number] INDICATIONS: ??cirrhosis, screen for hcc ------ LIVER: [...] 05/19/2020 11:57 am) PATIENT INFO: ID #: [id number] : 42 (79 yrs)(F) Name: MILKA MENDIETA Visit Date: 05/19/2020 11:19 am PERFORMED BY: Performed By: Gabi Mtz RDMS Attending: Alisha Grove MD Resident: Tacho Guajardo MD Referred By: MOLLY WALLIS [facility] Phy.: MOLLY WALLIS APRN Location: [place] SERVICE(S) PROVIDED: [facility] - Hepat[facility] Protocol - Abdominal 63859 Limited Survey Single Organ or Quadrant - [id number] INDICATIONS: cirrhosis, screen for hcc ------ LIVER: [...] this report, please contact the number below. Alisha Grove, Staff Physician Electronically Signed Final Report 05/19/2020 11:57 am Molly Wallis APRN IMG US GEN ORDERAB LES * Prothrombin Time (05/19/2020 10:25 AM EST) Prothrombin Time 12.4 9.4 - 12.5 sec [facility] International Normalization Ratio 1.1 [facility] Comment: An INR [...] Lab Molly Wallis APRN HEMATOLOGY ORDERAB LES [facility] [place] [address] * (ABNORMAL) Comprehensive metabolic panel (non-fasting) (05/19/2020 10:25 AM EST) Glucose 112 65 - 199 mg/dL [facility] Comment:Diabetes: >=200 mg/d L plus symptoms Blood Urea Nitrogen 24(H) 8 - 18 mg/dL [facility] Creatinine 0.78 0.70 - 1.20 mg/dL [facility] Sodium 140 135 - 145 mmol/L [facility] Potassium 4.4 3.5 - 5.0 mmol/L [facility] Comment: Please note: ??Patients with WBC >100,000 may have falsely elevated Potassium levels. ??For accurate Potassium quantification in these patients send serum separator tube (gold top) for subsequent determinations. ??Contact the Clinical Chemistry Laboratory if there are any questions. Chloride 99 98 - 107 mmol/L [facility] Carbon Dioxide 27 22 - 31 mmol/L [facility] Anion Gap 14 5 - 15 mmol/L [facility] Calcium 10.8(H) 8.5 - 10.5 mg/dL [facility] Protein, Total 7.8 6.1 - 8.0 gm/dL [facility] Albumin 4.7 3.2 - 5.2 gm/dL [facility] Aspartate Aminotransferase 23 0 - 30 unit/L [facility] Alanine Aminotransferase 26 0 - 30 unit/L [facility] Alkaline Phosphatase 94 35 - 105 unit/L [facility] Bilirubin, Total 0.7 0.2 - 1.3 mg/dL [facility] Est Glomerular Filtration Rate 73 >=60 mL/min/1. 73 m?? [facility] Comment: This patient? s [...] Lab Molly Wallis APRN CHEMISTRY ORDERABL ES [facility] [place] [address] documented in this encounter Visit Diagnoses Diagnosis Hepatic cirrhosis, unspecified hepatic cirrhosis type, unspecified whether ascites present Hepatic cirrhosis, unspecified hepatic cirrhosis type, unspecified whether ascites present documented in this encounter Care Teams Mold Loft Worker Relationship Specialty Start Date End Date Salome Mcarthur APRN [address] [place] [address] PCP - General Family Medicine 05/30/15 documented as of this encounter
--- OUTSIDE RECORDS SUMMARY | 2023-12-02 18:35 | XMS_ITS | Encounter Summary ---
Author Organization [facility] Address [facility] [place] [address] Care Team Providers Care Electrical Design Engineer Name Role Phone Salome Mcarthur APRN Primary Care Provider [phone] Reason for Visit * Auth/Cert Specialty Diagnoses [...] Expiration Date Visits Re quested Visits Authorized [id number] 1 1 Encounter Details Date Type Department Care Team (Latest Contact Info) Description 09/26/2020 12:50 PM EDT - 09/26/2020 3:53 PM EDT Hospital Encounter [place] [address] Jean Claude Chacon MD [facility] [place] [address] Hepatic cirrhosis Discharge Disposition: Home Social History Tobacco Use [...] Sign Reading Time Taken Comments Blood Pressure 131/65 09/26/2020 3:10 PM EDT Pulse 98 09/26/2020 2:49 PM EDT Temperature 36.4 ??C (97.5 ??F) 09/26/2020 1:20 PM ED T Respiratory Rate 16 09/26/2020 3:10 PM EDT Oxygen Saturation 95% 09/26/2020 3:10 PM EDT Inhaled Oxygen Concentration - - [...] the day after the procedure, use an chvo-gqo-jbunufv spray to numb your throat. Sucking on [...] occurs, please contact your Doctor. Please call [phone] before 8pm Mon-Fri with problems, questions or concerns. If you call after 8pm or on weekends, call the Hospital at [phone] and ask to speak to the School Bus Aide economic adviser and the drill press operator helper will contact that person for you. When should you call for help? Call [phone] anytime you think you may need emergency [...] any problems. Where can you learn more? myD- View your After Visit Summary and more online at [email or web address] If you would like to provide feedback about your hospital experience, please call the Office of Patient and Family Relations at . If you have received this After Visit Summary in error, please immediately return it in person to the department, or notify the [facility] Privacy Office by calling toll free at between the hours of 8AM and 5PM to arrange for our retrieval of the documents at no cost to you. Content Version: 12.2 ?? [id number] [employer]. Care instructions adapted under license by [facility]. If you have questions about a medical condition or this instruction, always ask your healthcare professional. [employer] disclaims any warranty or liability for your [...] directed. 05/02/2020 fluticasone propionate (FLONASE) 50 mcg/actuation [place], Suspension 1 spray daily. pramipexole (MIRAPEX) 0.125 [...] Operative Note Patient Name: Milka Corbett : [id number] MR#: [id number] Case Date: 09/26/2020 Surgeon: Surgeon(s) and Role: * Braulio Bailey MD - Primary Procedure(s): EGD, UPPER GI ENDOSCOPY Please see Provation report for details. documented in this encounter Plan of Treatment Upcoming Encounters Date Type Department Care Team (Late st Contact Info) Description 02/06/2024 11:30 AM EDT Appointment [place] [phone] Molly Cui HEAT CURER [facility] [place] [place] [address] 02/06/2024 12:15 PM EDT Laboratory Appointment Lab [address] [address] 02/06/2024 1:30 PM EDT Office Visit Gastroenterology at [facility] [place] [address] Molly Cui HEAT CURER [facility] [place] [place] [address] documented as of this encounter Procedures Procedure Name Priority Date/Time Associated Diagnosis Comments EGD, UPPER GI ENDOSCOPY (WRVU 2.09) 09/26/2020 2:12 PM EDT Hepatic cirrhosis, unspecified hepatic cirrhosis type, unspecified whether ascites present UPPER GI ENDOSCOPY Routine 09/26/2020 1: 55 PM EDT POCT GLUCOSE Routine 09/26/2020 1:42 PM EDT documented in this encounter Results * UPPER GI ENDOSCOPY (09/26/2020 1:55 PM EDT) [facility] UPPER GI ENDOSCOPY [facility] Endoscopy Procedure Date: 09/26/2020 1:55 PM ? Patient Name: Milka Corbett ? Date of : 1940 ? Age: 80 ? Order #: [id number] ? Instrument Name: [id number] LOANER ? Procedure: ? Upper GI endoscopy Indications: ? Esophageal varices, Follow-up of ? esophageal varices Providers: ? Daniel Ness Jeffrey M. ? Leo Referring : ?Sophia Mcarthur MD Medicines: ? [...] Procedure Code(s): ?? --- Professional --- ? 69428, Esophagogastroduod enoscopy, ? flexible, transoral; diagnostic, ? including collection of specimen(s) ? by brushing or washing, when ? performed (separate procedure) Diagnosis Code(s): ?? --- Professional --- ? K29.70, Gastritis, unspecified, ? without bleeding ? 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 --- Technical --- ? K29.70, Gastritis, unspecified, ? without bleeding ? 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 bleeding CPT copyright 2019 [employer]. All rights reserved. The codes documented in this report are preliminary and upon him coder review may be revised to meet current compliance requirements. Attending Participation: ? I personally performed the entire procedure. ? Braulio Bailey, 09/26/2020 2:38:44 PM Number of Addenda: 0 Note Initiated On: 09/26/2020 1:55 PM PROVATION 09/26/2020 1:55 PM EDT Salome Mcarthur HEAT CURER [facility]AL SURGICAL OR DERABLES PROVATION * POCT Glucose (09/26/2020 1:42 PM EDT) Glucose, POC 88 65 - 199 mg/dL [facility] Comment: Supplemental ranges: <140 mg/dL before meals <180 mg/dL all other times of the day Blood 09/26/2020 1:42 PM EDT 09/25/2020 12:00 PM EDT Jean Claude Chacon MD POINT OF CARE TEST O RDERABLES [facility] [place] [address] documented in this encounter Visit Diagnoses Diagnosis Hepatic cirrhosis- Primary Cirrhosis of liver without mention of alcohol documented in this encounter Admitting Diagnoses Diagnosis Hepatic cirrhosis Cirrhosis of liver without mention of alcohol documented in this encounter Active and Recently [...] Beatriz Hammond RN)[phone] (Given - Provider: Beatriz Hammond, RN) documented in this encounter Care Teams Electrical Design Engineer Relationship Specialty Start Date End Date Salome Mcarthur APRN [address] [place] [address] PCP - General Family Medicine 05/30/15 documented as of this encounter
--- OUTSIDE RECORDS SUMMARY | 2023-12-02 18:35 | XMS_ITS | Encounter Summary ---
Author Organization [facility] [place] [address] Care Team Providers Care School Crossing Guard Supervisor Name Role Phone Salome Mcarthur APRN Primary Care Provider [phone] Reason for Visit * Auth/Cert Specialty Diagnoses / Procedures Referred By Jose bermudez Referred To Contact Diagnoses 1 yr surv from 09/17/18 Procedures PRO UPPER GI ENDOSCOPY, DIAGNOSTIC EGD, UPPER GI ENDOSCOPY Referral ID Status Reason Start Date Expiration Date Visits Re quested Visits Authorized [id number] 1 1 Encounter Details Date Type Department Care Team (Late st Contact Info) Description 09/23/2019 11:30 AM EDT - 09/23/2019 12:15 PM EDT Surgery [place] [address] Juliette Chauhan MD [facility] [place] [address] EGD, UPPER GI ENDOSCOPY (WRVU 2.09) Social [...] Sign Reading Time Taken Comments Blood Pressure 139/88 09/23/2019 12:10 PM EDT Pulse 116 09/23/2019 12:10 PM EDT Temperature 36.7 ??C (98.1 ??F) 09/23/2019 10:50 AM E DT Respiratory Rate 19 09/23/2019 12:10 PM EDT Oxygen Saturation 79% 09/23/2019 12:15 PM EDT Inhaled Oxygen Concentration - - Weight - - Height - - Body Mass Index - - documented in this encounter Discharge Instructions * Discharge Instructions* Gal Justin, RN - 09/23/2019 1:53 PM EDT Upper [...] the day after the procedure, use an vlov-hdb-dwgwpmu spray to numb your throat. Sucking on [...] occurs, please contact your Doctor. Please call [phone] before 8pm Mon-Fri with problems, questions or concerns. If you call after 8pm or on weekends, call the Hospital at [phone] and ask to speak to the Fly Finisher hotel front desk agent and the diffusion furnace operator will contact that person for you. When should you call for help? Call [phone] anytime you think you may need emergency [...] any problems. Where can you learn more? [facility] View your After Visit Summary and more online at [email or web address] If you would like to provide feedback about your hospital experience, please call the Office of Patient and Family Relations at . If you have received this After Visit Summary in error, please immediately return it in person to the department, or notify the [facility] Privacy Office by calling toll free at between the hours of 8AM and 5PM to arrange for our retrieval of the documents at no cost to you. Content Version: 12.2 ?? [phone] [employer]. Care instructions adapted under license by [facility]. If you have questions about a medical condition or this instruction, always ask your healthcare professional. [employer] disclaims any warranty or liability for your use of this information. documented in this encounter Medications at Time of Discharge Medication Sig Dispensed Refills Start Date End Date lisinopriL (Zestril) 10 mg tablet Take 1 tablet by mouth once a day for kidney protection 06/06/2009 fluticasone propionate (FLONASE) 50 mcg/actuation [place], Suspension 1 spray daily. pramipexole (MIRAPEX) 0.125 [...] 02/06/2024 11:30 AM EDT Appoint[place] [address] Molly Cui, [facility] [place] [address] 02/06/2024 12:15 PM EDT Laboratory Appointment Lab [address] [place] [address] 02/06/2024 1:30 PM EDT Office [place] [address] Molly Cui, [facility] [place] [address] documented as of this encounter Procedures Procedure Name Priority Date/Time Associated Diagnosis Comments Upper GI Endoscopy, Diagnostic (38255) 09/23/2019 11:55 AM EDT 1 yr surv from 09/17/18 UPPER GI ENDOSCOPY Routine 09/23/2019 11 :41 AM EDT documented in this encounter Results * UPPER GI ENDOSCOPY (09/23/2019 11:41 AM EDT) [facility] Signature UPPER GI ENDOSCOPY [facility] Endoscopy Procedure Date: 09/23/2019 11:41 AM ? Patient Name: Milka Corbett ? Date of : 1940 ? Age: 79 ? Order #: [id number] ? Instrument Name: [id number] ? Procedure: ? Upper GI endoscopy Indications: ? Follow-up of esophageal varices Providers: ? Juliette Chauhan MD, Bertha Lizarraga ? TRISHA Oleary, Fauzia Castillo ? TRISHA Kang, Genoveva Webber, Laundry Bag Punch Operator Referring : ?Sophia Mcarthur MD Medicines: ? [...] Procedure Code(s): ?? --- Professional --- ? 80067, Esophagogastroduod enoscopy, ? flexible, transoral; diagnostic, ? including collection of specimen(s) ? by brushing or washing, when ? performed (separate procedure) CPT copyright 2019 [employer]. All rights reserved. The codes documented in this report are preliminary and upon granite chip terrazzo finisher review may be revised to meet current compliance requirements. Attending Participation: ? I personally performed the entire procedure. ? Juliette Chauhan MD Juliette Chauhan MD 09/23/2019 12:19:55 PM This report has been signed electronically. Number of Addenda: 0 Note Initiated On: 09/23/2019 11:41 AM PROVATION 09/23/2019 11:4 1 AM EDT Salome Mcarthur APRN GENERAL SURGICAL OR DERABLES [facility] documented in this encounter Visit Diagnoses Not on filedocumented in this encounter Administered Medications Inactive Administered Medications - up to 3 most recent administrations Medication Order MAR Action Action Date Dose Rate Site fentaNYL 50 mcg/mL multi-dose injection ONCE PRN, Starting on Sat09/23/19 at 1159, Until Sat09/23/19 at 1607, Intra-Operative (Intra-Procedure), Routine Given 09/23/2019 12:02 PM EDT 50 mcg Right Arm Given 09/23/2019 11:59 AM EDT 50 mcg R ight Arm lactated ringers infusion 100 mL/hr, Intravenous, CONTINUOUS, Starting on Sat09/23/19 at 1130, Until Sat09/23/19 at 1607, Endoscopy (Day of Procedure) New Bag 09/23/2019 11:04 AM EDT 100 mL/hr 100 mL/hr midazolam (PF) (VERSED) multi-dose injection ONCE PRN, Starting on Sat09/23/19 at 1159, Until Sat09/23/19 at 1607, Intra-Operative (Intra-Procedure), Routine Given 09/23/2019 12:02 PM EDT 1 mg Given 09/23/2019 11:59 AM EDT 1 mg documented in this [...] er: Fauzia Kang RN)[id number] (Given - Provider: aFuzia Kang RN) documented in this encounter Care Teams School Crossing Guard Supervisor Relationship Specialty Start Date End Date Salome Mcarthur APRN [address] [place] [address] PCP - General Family Medicine 05/30/15 documented as of this encounter
--- OUTSIDE RECORDS SUMMARY | 2023-12-02 18:36 | XMS_ITS | Encounter Summary ---
Author Organization [facility] [place] [address] Care Team Providers Care Cell Room Operator Name Role Phone Salome Mcarthur APRN Primary Care Provider [phone] [phone] Encounter Details Date Type Department Care Team (Late st Contact Info) Description 09/04/2017 Orders Only [place] [address] Evy Howard Social History Tobacco Use Types Packs/Day Years [...] 02/06/2024 11:30 AM EDT Appointment [place] [address] Molly Cui VETERINARY ASSISTANT [facility] GASTROENTEROLOGY [place], [place] [address] 02/06/2024 12:15 PM EDT Laboratory Appointment Lab [address] [place] [address] 02/06/2024 1:30 PM EDT Office Visit [place] [address] Molly Cui VETERINARY ASSISTANT [facility] [place] [address] documented as of this encounter Visit Diagnoses Not on filedocumented in this encounter Care Teams Cell Room Operator Relationship Specialty Start Date End Date Salome Mcarthur APRN [address] [place] [address] PCP - General Family Medicine 05/30/15 documented as of this encounter
--- OUTSIDE RECORDS SUMMARY | 2023-12-02 18:36 | XMS_ITS | Encounter Summary ---
Author Organization [facility] [place] [address] Care Team Providers Care It Project Coordinator Name Role Phone Salome Mcarthur APRN Primary Care Provider [phone] Reason for Visit * Reason Onset Date Comments Results 10/22/2017 Encounter Details Date Type Department Care Team (Late Contact Info) Description 10/22/2017 Telephone [place] [address] Jacque Gale, RN Results Social History Tobacco Use Types Packs/Day Years [...] encounter Miscellaneous Notes * Telephone Encounter - Maribell Greer - 10/24/2017 10:22 AM EDT Pt calls again today to question results of recent CT- Her contact # [phone]- okay to leave . * Telephone Encounter - Jacque Gale RN - 10/22/2017 3:58 PM EDT Pt calling for results of chest CT performed on 10/18 at [facility]. documented in this encounter Plan of Treatment Upcoming Encounters Date Type Department Care Team (Late st Contact Info) Description 02/06/2024 11:30 AM EDT Appointment [place] [address] Molly Cui, [facility] [place] [address] 02/06/2024 12:15 PM EDT Laboratory Appointment Lab [address] [place] [address] 02/06/2024 1:30 PM EDT Office Visit [place] [address] Molly Cui, [facility] [place] [address] documented as of this encounter Visit Diagnoses Not on filedocumented in this encounter Care Teams It Project Coordinator Relationship Specialty Start Date End Date Salome Mcarthur, SALES TRAINING REPRESENTATIVE [address] [place] [address] PCP - General Family Medicine 05/30/15 documented as of this encounter
--- OUTSIDE RECORDS SUMMARY | 2023-12-02 18:36 | XMS_ITS | Encounter Summary ---
Author Organization [facility] Address [facility] [place] [address] Care Team Providers Care [employer]worker [employer] Name Role Phone Salome Mcarthur APRN Primary Care Provider Encounter Details Date Type Department Care Team (Latest Contact Info) Description 02/26/2018 8:42 AM EST - 02/26/2018 11:59 PM [facility] Hospital [place] [phone] Molly Wallis [facility] [place] [address] Hepatic cirrhosis, unspecified hepatic cirrhosis type, unspecified [...] once a day for kidney protection 06/06/2009 diphenhydrAMINE (BENADRYL) 25 mg Capsule Take 25 [...] 100 mg capsule Take by mouth. 02/24/2009 rifAXIMin (XIFAXIN) 550 mg Tablet Take 1 [...] 02/06/2024 11:30 AM EDT [place] [phone] Molly Wallis [employer] [facility] [place] [address] 02/06/2024 12:15 PM EDT Laboratory Appointment Lab [address] [place] [phone] 02/06/2024 1:30 PM EDT Office [place] [phone] Molly Wallis APRN [facility] [place] [address] documented as of this encounter Procedures Procedure Name Priority Date/Time Associated Diagnosis Comments US ABDOMEN LIMITED Routine 02/26/2018 9: 27 AM EST Hepatic cirrhosis, unspecified hepatic cirrhosis type, unspecified whether ascites present documented in this encounter Results * US Abdomen Limited (02/26/2018 9:27 AM EST) Anatomical Region Laterality Modality Abdomen Ultrasound 02/26/2018 9:24 AM EST Impressions 02/26/2018 10:11 AM EST 1. ??New indeterminant small brightly echogenic focus in the left hepatic lobe with a hypoechoic rim and a separate, small calcification medial to the left portal vein. Recommend MRI of the liver for further characterization. 2. ??Diffusely echogenic and enlarged liver with capsular nodularity consistent with known cirrhosis. 3. ??Trace amount of ascites. I have personally reviewed the image(s) and the residents interpretation and agree with the findings, Jean Claude Bautista at 02/26/2018 10:04 AM ? Jean Claude Bautista MD Electronically Signed Final Report ?? 02/26/2018 10:11 am Narrative 02/26/2018 10:11 AM EST Abdominal ? (Signed Final 02/26/2018 10:11 am) PATIENT INFO: ID #: ? [id number] ?: ??[birth year] (77 yrs) Name: ? MILKA MENDIETA ?Visit Date: 02/26/2018 09:24 am PERFORMED BY: Performed By: ? Gabi Mtz RDMS Attending: ?Lily GALLO, Jean Claude Lancaster Referred By: ?MOLLY WALLIS Location: ? Tram SERVICE(S) PROVIDED: ??UABDLIM - Abdominal Limited Survey Single ? 36010 ??Organ or Quadrant - [id number] INDICATIONS: ??Compensated cirrhosis, assess for HCC COMPARISON: Prior MRI: 09/20/17. Prior US: 08/22/17. ------ LIVER: ------ Right Lobe Length: ?? 22.7 ?? cm Echogenicity/Echotexture: ?? Coarsely echogenic parenchyma ? with capsular nodularity Comment: ?Hepatomegaly. Echogenic focus seen in left lobe, ? measurin.54 x 0.35 x 0.30 cm. Calcification ? seen in the left lobe medial/posterior to the left ? portal vein branch, measurin.7 x 0.6 cm. (Best ? seen on images obtained starting at 9:09:17.) GALLBLADDER: Focal Tenderness: ?Negative sonographic Marino's sign Comment: ?S/P Cholecystectomy BILIARY TRACT: Intrahepatic Ducts: ?? Normal Extrahepatic Ducts: ?? Normal, measuring 1.0 cm. Common Duct Size: ? 4.0 ? mm --------- PANCREAS: --------- Head: ? Normal Tail: ? Poorly visualized due to overlying bowel Body: ? Limited visualization RIGHT KIDNEY: Size (cm) ?L: ??10.7 Cortical Thickness: ?Normal Cortical Echogenicity: ?? Normal Hydronephrosis: ?No sonographic evidence ------ AORTA: ------ Measurements (cm): Proximal ? AP: ?? 1.8 Comment: ?Normal in caliber where visualized. Poorly ? visualized due to overlying bowel. ---- IVC: ---- Normal in caliber where visualized. FLUID COLLECTIONS: Trace perihepatic fluid is noted. Procedure Note Jean Claude Bautista MD - 02/26/2018 Abdominal (Signed Final 02/26/2018 10:11 am) PATIENT INFO: ID #: [id number] : 42 (77 yrs) Name: MILKA MENDIETA Visit Date: 02/26/2018 09:24 am PERFORMED BY: Performed By: Gabi Mtz RDMS Attending: Jean Claude Bautista MD Referred By: MOLLY WALLIS Location: Tram SERVICE(S) PROVIDED: UABDLIM - Abdominal Limited Survey Single 52215 Organ or Quadrant - [id number] INDICATIONS: Compensated cirrhosis, assess for HCC COMPARISON: Prior MRI: 09/20/17. Prior US: 08/22/17. ------ LIVER: ------ Right Lobe Length: 22.7 cm Echogenicity/Echotexture: Coarsely echogenic parenchyma with capsular nodularity Comment: Hepatomegaly. Echogenic focus seen in left lobe, measurin.54 x 0.35 x 0.30 cm. Calcification seen in the left lobe medial/posterior to the left portal vein branch, measurin.7 x 0.6 cm. (Best seen on images obtained starting at 9:09:17.) GALLBLADDER: Focal Tenderness: Negative sonographic Marino's sign Comment: S/P Cholecystectomy BILIARY TRACT: Intrahepatic Ducts: Normal Extrahepatic Ducts: Normal, measuring 1.0 cm. Common Duct Size: 4.0 mm --------- PANCREAS: --------- Head: Normal Tail: Poorly visualized due to overlying bowel Body: Limited visualization RIGHT KIDNEY: Size (cm) L: 10.7 Cortical Thickness: Normal Cortical Echogenicity: Normal Hydronephrosis: No sonographic evidence ------ AORTA: ------ Measurements (cm): Proximal AP: 1.8 Comment: Normal in caliber where visualized. Poorly visualized due to overlying bowel. ---- IVC: ---- Normal in caliber where visualized. FLUID COLLECTIONS: Trace perihepatic fluid is noted. IMPRESSION 1. New indeterminant small brightly echogenic focus in the left hepatic lobe with a hypoechoic rim and a separate, small calcification medial to the left portal vein. Recommend MRI of the liver for further characterization. 2. Diffusely echogenic and enlarged liver with capsular nodularity consistent with known cirrhosis. 3. Trace amount of ascites. I have personally reviewed the image(s) and the residents interpretation and agree with the findings, Jean Claude Batuista at 02/26/2018 10:04 AM Jean Claude Bautista MD Electronically Signed Final Report 02/26/2018 10:11 am Molly Wallis APRN IMG US GEN ORDERAB LES documented in this encounter Visit Diagnoses Diagnosis Hepatic cirrhosis, unspecified hepatic cirrhosis type, unspecified whether ascites present documented in this encounter Care Teams [employer]worker [employer] Relationship Specialty Start Date End Date Salome Mcarthur APRN [facility] [address] [place] [address] PCP - General Family Medicine 05/30/15 documented as of this encounter
--- OUTSIDE RECORDS SUMMARY | 2023-12-02 18:36 | XMS_ITS | Encounter Summary ---
Author Organization [facility] [place] [address] Care Team Providers Care Restaurant Worker Name Role Phone Salome Mcarthur APRN Primary Care Provider [phone] Reason for Referral * Diagnostic Test (Routine) - Closed Specialty Diagnoses / Procedures Referred By Contac t Referred To Contact Radiology Diagnoses NAFLD (nonalcoholic fatty liver disease) Procedures MRI Abdomen wwo Contrast (Generic) Molly Cui APRN [facility] [place] [address] [place] [address] Referral ID Status Reason Start Date Expiration Date V isits Requested Visits Authorized [id number] Closed Specialty Service Requested 08/22/2017 08/22/2018 1 1 Reason for Visit * Diagnostic Test (Routine) - Closed Specialty Diagnoses / Procedures Referred By Contac t Referred To Contact Radiology Diagnoses NAFLD (nonalcoholic fatty liver disease) Procedures MRI Abdomen wwo Contrast (Generic) Molly Cui ANALYTICAL MANAGER [facility] [place] [address] [place] [address] Referral ID Status Reason Start Date Expiration Date V isits Requested Visits Authorized [id number] Closed Specialty Service Requested 08/22/2017 08/22/2018 1 1 Encounter Details Date Type Department Care Team (Latest Contact Info) Description 09/20/2017 2:41 PM EDT - 09/20/2017 11:59 PM EDT Hospital Encounter MRI at [facility] [address] Molly Cui APRN [facility] [place] [address] NAFLD (nonalcoholic fatty liver disease) Discharge Disposition: Home Social History Tobacco Use [...] every 4 hours as needed. FEXOFENADINE HCL (JSEÚS ORAL) Take 100 mg by mouth as needed. Reported on 08/21/2016 fish oil-omega-3 fatty acids with vitamin E 1,000 mg Capsule Take 3,000 mg by mouth daily. multivitamin (THERAGRAN) tablet Take 1 tablet by mouth daily. amitriptyline (ELAVIL) 50 mg tablet Take 25 mg by mouth nightly. docusate sodium (COLACE) 100 mg capsule Take by mouth. 02/24/2009 fluticasone (FLONASE) 50 mcg/actuation [place], Suspension 1 spray by Each Nare route daily for 180 days. 10 g 08/22/2017 02/18/2018 rifAXIMin (XIFAXIN) 550 mg Tablet Take 1 [...] 02/06/2024 11:30 AM EDT [place] [phone] Molly Cui [facility] [place] [address] 02/06/2024 12:15 PM EDT Laboratory Appointment Lab [address] [phone] 02/06/2024 1:30 PM EDT Office [place] [phone] Molly Cui, [facility] [place] [address] documented as of this encounter Procedures Procedure Name Priority Date/Time Associated Diagnosis Comments MRI ABDOMEN WWO CONTRAST Routine 09/20/2017 4:15 PM EDT NAFLD (nonalcoholic fatty liver disease) documented in this encounter Results * (ABNORMAL) MRI Abdomen wwo Contrast (Generic) (09/20/2017 4:15 PM EDT) Anatomical Region Laterality Modality Abdomen Magnetic Resonan ce Impressions 09/20/2017 5:51 PM EDT 1. ??Hepatomegaly with trace ascites consistent with underlying cirrhosis. 2. ??No liver lesions are present. There is no lesion in the region of the LEFT lobe at site of reported hypoechoic lesion on recent ultrasound. 3. ??Unexpected findin cm LEFT lower lobe pulmonary nodularity is incompletely evaluated given MRI technique. This could be a benign lesion malignancy must also be considered. Recommend CT of the chest with contrast for further assessment. LI-RADS Categories: LR-TIV = Tumor in vein [...] https://www.acr.org/Quality-Safety/Resources/LIRADS/LIRADS-v2017. This report utilizes LI-RADS version 2017. Narrative 09/20/2017 5:51 PM EDT EXAMINATION: MRI ABDOMEN WWO CONTRAST (GENERIC) CLINICAL HISTORY: Cirrhosis survery for hepatoma. ??1.2 cm ill-defined lesion in left lobe seen on ultrasound, please evaluate further. TECHNIQUE: MRI of the abdomen was performed with images obtained prior to and following intravenous administration of 13ml of Dotarem using the dynamic liver protocol. COMPARISONS: 08/22/2017 abdominal ultrasound FINDINGS: Prior interventions: None. Liver Morphology: The liver is large measuring 22 cm in craniocaudal dimension with hypertrophy of the RIGHT hepatic lobe. There is a nodular capsular contour throughout. There is mild diffuse signal loss on T1 out of phase images consistent with hepatic steatosis. Focal hepatic lesions: The reported 1 cm hypoechoic lesion seen on recent ultrasound is not seen on today's exam. No liver lesions are seen. Portal Vein: Widely Patent. Varices: None. Ascites: There is trace perihepatic ascites. Bile ducts: The common bile duct measures 7 mm in diameter. No intraluminal filling defects are seen. No intrahepatic bile duct dilation is present. Gallbladder: Post cholecystectomy. Spleen: Normal size, no lesions. Pancreas: Normal. Adrenals: Normal. Kidneys: Normal. Aorta: No aneurysm. Lymph nodes: No enlarged lymph nodes. Bowel: Nondilated, no inflammatory changes. Marrow Signal: Normal. Base of chest: Incidentally noted is a 1.1 x 1.2 x 2.0 cm nodule within the LEFT lower lobe. Resulting Agency Comment Unexpected Finding Molly Cui APRN IMG MRI ORDERABLES documented in this encounter Visit Diagnoses Diagnosis NAFLD (nonalcoholic fatty liver disease) Other chronic nonalcoholic liver disease documented in this encounter Administered Medications Inactive Administered Medications - up to 3 most recent administrations Medication Order MAR Action Action Date Dose Rate Site gadoterate meglumine (DOTAREM) 0.5 mmol/mL injection 0-20 mL/kg 0-20 mL/kg/dose, Intravenous, ONCE PRN, 1 dose, Starting on Sat09/20/17 at 1607, Until Sat09/20/17 at 1607, Per Protocol, Radiology Contrast, Routine Given 09/20/2017 4:07 PM EDT 13 mLs documented in this encounter Care Teams Restaurant Worker Relationship Specialty Start Date End Date Salome Mcarthur APRN [address] [place], [place] [address] PCP - General Family Medicine 05/30/15 documented as of this encounter
--- OUTSIDE RECORDS SUMMARY | 2023-12-02 18:36 | XMS_ITS | Encounter Summary ---
Author Organization [facility] [place] [address] Care Team Providers Care Magazine Repairer Name Role Phone Salome Mcarthur APRN Primary Care Provider [phone] Reason for Referral * Diagnostic Test (Routine) - Closed Specialty Diagnoses / Procedures Referred By Contac t Referred To Contact Radiology Diagnoses Hepatic cirrhosis, unspecified hepatic cirrhosis type, unspecified whether ascites present Procedures MRI Abdomen wwo Contrast (Generic) Molly Cui APRN [facility] [place] [address] [place] [address] Referral ID Status Reason Start Date Expiration Date V isits Requested Visits Authorized [id number] Closed Specialty Service Requested 02/26/2018 02/26/2019 1 1 Reason for Visit * Diagnostic Test (Routine) - Closed Specialty Diagnoses / Procedures Referred By Contac t Referred To Contact Radiology Diagnoses Hepatic cirrhosis, unspecified hepatic cirrhosis type, unspecified whether ascites present Procedures MRI Abdomen wwo Contrast (Generic) Molly Cui APRN [facility] [address] [place] [address] Referral ID Status Reason Start Date Expiration Date V isits Requested Visits Authorized [id number] Closed Specialty Service Requested 02/26/2018 02/26/2019 1 1 Encounter Details Date Type Department Care Team (Latest Contact Info) Description 03/08/2018 10:57 AM EST - 03/08/2018 11:59 PM EST Hospital Encounter MRI at [facility] [place] [address] Molly Cui APRN [facility] [place] [address] Hepatic cirrhosis, unspecified hepatic cirrhosis type, unspecified [...] 02/06/2024 11:30 AM EDT [place] [phone] Molly Cui, [facility] [place] [address] 02/06/2024 12:15 PM EDT Laboratory Appointment Lab [address] [place] [phone] 02/06/2024 1:30 PM EDT Office [place] [phone] Molly Cui, [facility] [place] [address] documented as of this encounter Procedures Procedure Name Priority Date/Time Associated Diagnosis Comments MRI ABDOMEN WWO CONTRAST Routine 03/08/2018 12:40 PM EST Hepatic cirrhosis, unspecified hepatic cirrhosis type, unspecified whether ascites present documented in this encounter Results * MRI Abdomen wwo Contrast (Generic) (03/08/2018 12:40 PM EST) Anatomical Region Laterality Modality Abdomen Magnetic Resonan ce Impressions 03/09/2018 6:11 PM EST 1. ??The calcification in the left lobe seen on prior CT, and the echogenic lesion reported on the recent ultrasound are both occult on MR imaging. 2. ??Cirrhosis with evidence of portal hypertension. There is diffuse reticular signal abnormality throughout the liver indicative of fibrosis. This is more apparent than on the comparison study. No suspicious liver lesions to suggest hepatocellular carcinoma. 3. ??Redemonstration of known left lower lobe pulmonary nodule; size comparison cannot be made given differences in technique. Recommend reference to prior CT report for management guidelines. 4. ??Ectasia of the common bile duct is likely related to prior cholecystectomy. LI-RADS Categories: LR-TIV = Tumor in vein [...] This report utilizes LI-RADS version 2017. Narrative 03/09/2018 6:11 PM EST EXAMINATION: MRI ABDOMEN WWO CONTRAST (GENERIC) CLINICAL HISTORY: Cirrhosis, with echogenic focus in left lobe seen on US, please evaluate further for HCC TECHNIQUE: MRI of the abdomen was performed with images obtained prior to and following intravenous administration of 13ml Dotarem. COMPARISON: Ultrasound 02/26/2018, CT chest 10/17/2017, MR abdomen 09/20/2017 FINDINGS: Lower chest: The known left lower lobe nodule seen on prior chest CT is faintly visible on the MRI although accurate determination of size changes is not possible. No basilar pleural effusion. Liver: Prior interventions: None. Liver Morphology: Enlarged to 23 cm with diffuse surface nodularity. There is diffuse, mild loss of signal on out of phase images indicating steatosis. T2-weighted images demonstrate a somewhat reticular pattern of high T2 signal intensity most pronounced in the inferior right hepatic lobe, and more evident peripherally then centrally. Postcontrast, there is a reticular pattern of hyperenhancement in the subcapsular right lobe inferiorly that persists throughout the 1 and 3 minute delayed images. 2 more focal, reticular areas of hypervascular enhancement in the subcapsular right lobe (series 9 images 90 and 93) also persist. There is no focal hypervascular mass, nor regions of washout appearance. The known calcification in the subcapsular left hepatic lobe seen on the comparison CT is not evident on the MRI, and the ultrasound reported lesion is inconspicuous on all pulse sequences.. Focal hepatic lesions: None Portal Vein: Widely Patent. Varices: Recanalized umbilical vein. Ascites: None Spleen: Enlarged to 15 cm. No focal lesion. Patent splenic vein. Bile ducts: Common bile duct is dilated to 11 mm. No intrahepatic biliary dilatation. Gallbladder: Surgically absent Pancreas: Normal. Adrenals: Normal. Kidneys: No focal renal lesions. No collecting system dilatation. Aorta: No aneurysm. Lymph nodes: No enlarged lymph nodes. Bowel: Nondilated, no inflammatory changes. Marrow Signal: Normal. Procedure Note Susan Callahan MD - 03/09/2018 EXAMINATION: MRI ABDOMEN WWO CONTRAST (GENERIC) CLINICAL HISTORY: Cirrhosis, with echogenic focus in left lobe seen onUS, please evaluate further for HCC TECHNIQUE: MRI of the abdomen was performed with images obtained prior toand following intravenous administration of 13ml Dotarem. COMPARISON: Ultrasound 02/26/2018, CT chest 10/17/2017, MR abdomen09/20/2017 FINDINGS: Lower chest: The known left lower lobe nodule seen on prior chest CT isfaintly visible on the MRI although accurate determination of size changes isnot possible. No basilar pleural effusion. Liver: Prior interventions: None. Liver Morphology: Enlarged to 23 cm with diffuse surface nodularity. Thereis diffuse, mild loss of signal on out of phase images indicatingsteatosis. T2-weighted images demonstrate a somewhat reticular pattern of high D0ubwfba intensity most pronounced in the inferior right hepatic lobe, and moreevident peripherally then centrally. Postcontrast, there is a reticular pattern of hyperenhancement in the subcapsular right lobe inferiorly that persists throughout the 1 and 3minute delayed images. 2 more focal, reticular areas of hypervascular enhancementin the subcapsular right lobe (series 9 images 90 and 93) also persist. Thereis no focal hypervascular mass, nor regions of washout appearance. The known calcification in the subcapsular left hepatic lobe seen on the comparison CT is not evident on the MRI, and the ultrasound reportedlesion is inconspicuous on all pulse sequences.. Focal hepatic lesions: None Portal Vein: Widely Patent. Varices: Recanalized umbilical vein. Ascites: None Spleen: Enlarged to 15 cm. No focal lesion. Patent splenic vein. Bile ducts: Common bile duct is dilated to 11 mm. No intrahepaticbiliary dilatation. Gallbladder: Surgically absent Pancreas: Normal. Adrenals: Normal. Kidneys: No focal renal lesions. No collecting system dilatation. Aorta: No aneurysm. Lymph nodes: No enlarged lymph nodes. Bowel: Nondilated, no inflammatory changes. Marrow Signal: Normal. IMPRESSION 1. The calcification in the left lobe seen on prior CT, and theechogenic lesion reported on the recent ultrasound are both occult on MR imaging. 2. Cirrhosis with evidence of portal hypertension. There is diffusereticular signal abnormality throughout the liver indicative of fibrosis. This ismore apparent than on the comparison study. No suspicious liver lesions tosuggest hepatocellular carcinoma. 3. Redemonstration of known left lower lobe pulmonary nodule; sizecomparison cannot be made given differences in technique. Recommend reference [place] report for management guidelines. 4. Ectasia of the common bile duct is likely related to priorcholecystectomy. LI-RADS Categories: LR-TIV = Tumor in vein [...] online https://www.acr.org/Quality-Safety/Resources/LIRADS/LIRADS-v2017. Thisreport utilizes LI-RADS version 2017. Molly Cui APRN IMG MRI ORDERABLES documented [...] Intravenous, ONCE PRN, 1 dose, Starting on 03/08/18 at 1300, Until 03/08/18 at 1230, Per Protocol, Radiology Contrast, Routine Given 03/08/2018 12:30 PM EST 13 mLs documented in this encounter Care Teams Magazine Repairer Relationship Specialty Start Date End Date Salome Mcarthur APRN [address] [place] [address] PCP - General Family Medicine 05/30/15 documented as of this encounter
--- OUTSIDE RECORDS SUMMARY | 2023-12-02 18:36 | XMS_ITS | Encounter Summary ---
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
--- OUTSIDE RECORDS SUMMARY | 2023-12-02 18:36 | XMS_ITS | Encounter Summary ---
Author Organization [facility] Address [facility] [place] [address] Care Team Providers Care Farm Assistant Name Role Phone Salome Mcarthur APRN Primary Care Provider +[phone] Encounter Details Date Type Department Care Team (Late st Contact Info) Description 08/26/2017 Telephone [place] [address] Molly Wallis APRN [facility] [place] [address] Social History Tobacco Use Types Packs/Day Years [...] encounter Miscellaneous Notes * Telephone Encounter - Molly Wallis APRN - 08/26/2017 11:55 AM EDT Called patient to review US that shows 1cm hypoechoic, avascular area, plan to do MRI to further evaluate. Will ask java development manager to reach out to patient to schedule MRI. Patient understands, answered all questions. MOLLY WALLIS APRN documented in this encounter Plan of Treatment Upcoming Encounters Date Type Department Care Team (Late st Contact Info) Description 02/06/2024 11:30 AM EDT Appoint[place] [address] Molly Wallis APRN [facility] GASTRO[facility]OLOG[facility] [place] [id number] 02/06/2024 12:15 PM EDT Laboratory Appointment Lab [address] [address] 02/06/2024 1:30 PM EDT Office [place] [phone] Molly Wallis, LORETO [facility] [place] [address] documented as of this encounter Visit Diagnoses Not on filedocumented in this encounter Care Teams Farm Assistant Relationship Specialty Start Date End Date Salome Mcarthur APRN [address] [place] [address] PCP - General Family Medicine 05/30/15 documented as of this encounter
--- OUTSIDE RECORDS SUMMARY | 2023-12-02 18:36 | XMS_ITS | Encounter Summary ---
Author Organization [facility] Address [facility] [place] [address] Care Team Providers Care Credit Collection Specialist Name Role Phone Salome Mcarthur APRN Primary Care Provider [phone] Encounter Details Date Type Department Care Team (Late st Contact Info) Description 03/05/2016 Telephone Gastroenterology at [place] [address] Whitney De Souza Social History Tobacco Use Types Packs/Day Years [...] encounter Miscellaneous Notes * Telephone Encounter - Hannah Dominguez RN - 03/06/2016 1:59 PM EST Returned call to patient. Hx of BA cirrhosis. Recently seen in clinic ~ 3 weeks ago. Plan is GIF and US/labs in August, Q 6 mth surveillance. Rev'd with patient and rationale. The patient indicates understanding of these issues and agrees with the plan. She also reports pain has subsided and feels it was just nerves and stress as I had 24 people for dinner for Thanksgiving! * Telephone Encounter - Whitney Pulliam - 03/05/2016 10:51 AM EST Caller: patient Call for: Molly Cui APRN Reason for call: patient reports new sx's: on and Saturday had achy type pain in the right and left upper quadrants (rates as a 6 out of 10 on pain scale). This has since subsided. Also, wouldlike to know if she should return in 3 months or 6 months? Call back urgency: routine Ok to leave detailed message? yes Patient's preferred method of communication: phone; [phone] documented in this encounter Plan of Treatment Upcoming Encounters Date Type Department Care Team (Late st Contact Info) Description 02/06/2024 11:30 AM EDT [place] [phone] Molly Cui AIRCRAFT STRUCTURAL REPAIRER [facility] [address] 02/06/2024 12:15 PM EDT Laboratory Appointment Lab [address] [place] [phone] 02/06/2024 1:30 PM EDT Office [place] [phone] Molly Cui AIRCRAFT STRUCTURAL REPAIRER [facility] [address] documented as of this encounter Visit Diagnoses Not on filedocumented in this encounter Care Teams Credit Collection Specialist Relationship Specialty Start Date End Date Salome Mcarthur APRN [address] [place] [address] PCP - General Family Medicine 05/30/15 documented as of this encounter
--- OUTSIDE RECORDS SUMMARY | 2023-12-02 18:36 | XMS_ITS | Encounter Summary ---
Author Organization [facility] [place] [address] Care Team Providers Care Piercer Name Role Phone Salome Mcarthur APRN Primary Care Provider [phone] Reason for Visit * Reason Comments Follow-up Encounter Details Date Type Department Care Team (Late st Contact Info) Description 08/21/2016 3:30 PM EDT Office [place] [phone] Molly Wallis APRN [facility] [address] [place] [address] NAFLD (nonalcoholic fatty liver disease) Social History Tobacco Use Types Packs/Day Years [...] Sign Reading Time Taken Comments Blood Pressure 122/48 08/21/2016 3:03 PM EDT Pulse 105 08/21/2016 3:03 PM EDT Temperature - - Respiratory Rate - - Oxygen Saturation - - Inhaled Oxygen Concentration - - Weight 65.3 kg (143 lb 14.4 oz) 08/21/2016 3:03 PM EDT Height 156.2 cm (5' 1.5) 08/21/2016 3:03 PM EDT Body Mass Index 26.75 08/21/2016 3:03 PM EDT documented in this encounter Progress Notes * Molly Wallis APRN - 08/21/2016 3:30 PM EDT HEPATOLOGY Follow up Visit Milka Mendieta 1940 DIRECTOR REVENUE: MOLLY WALLIS APRN PCP: Salome Mcarthur APRN Requesting Provider: REASON FOR CONSULTATION: BA Cirrhosis HISTORY OF PRESENT ILLNESS Milka Mendieta is a 76 y.o. year old female With BA Cirrhosis. She had an ultrasound and blood work done today. She has been doing well from a liver perspective. She has had diarrhea for the past week, which resolved for 4 days after taking an immodium, and thenreturned. She often has either constipation or diarrhea. She also has an intermittent stabbing painin her right side of her abdomen. No improvement with BM. Improves with massage. No agravated by activity. Denies encephalopathy, ascites, melena. PAST MEDICAL/SURGICAL HISTORY 1. 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 Fibroscan 06/28/15: 28.4 kPa; 6% IQR; 100% success rate, F4 ?? Risk factors: diabetes, hyperlipidemia, HTN, overweight. Strong family hx of BA cirrhosis. ?? Ultrasound 07/22/2015: no lesions ?? EGD 07/14/2015: no varices, gastric ulcers (2). 2 Diabetes 3. Hypertension 4. Elevated cholesterol MEDICATIONS Outpatient Prescriptions Marked as Taking for the 08/21/16 encounter (Office Visit) with Molly Wallis APRN Medication Sig Dispense Refill ??? cinnamon bark 500 mg Capsule Take by mouth. ??? diphenhydrAMINE (BENADRYL) 25 mg Capsule Take [...] mouth every 4 hours as needed. ??? Machias-3 Fatty Acids-Vitamin E (FISH OIL) 1,000 mg Cap Take 3,000 mg by mouth daily. ??? multivitamin (THERAGRAN) tablet Take 1 tablet by mouth daily. ??? amitriptyline (ELAVIL) 50 mg tablet Take 50 mg by mouth nightly. Current Facility-Administered Medications for the 08/21/16 encounter (Office Visit) with Molly Wallis APRN [...] grown children and a large extended family. Does not drink alcohol (other than 1-2x/year). [...] 29 of acute hepatitis PHYSICAL EXAM Vitals: 08/21/16 1503 BP: 122/48 Pulse: 105 Weight: 65.3 kg (143 lb 14.4 oz) Height: 156.2 cm (5' 1.5) Body mass index is 26.75 kg/(m^2). Gen: Well appearing, no apparent distress. Skin: no spider angiomata, no palmar erythema, no jaundice. HEENT: Sclerae anicteric, pupils equal, round, react to light. Pharynx unremarkable. Neck is supple, no adenopathy, no thyromegaly. Extremities: No edema. Neuro: alert and oriented x3, no asterixis or tremor. Lab Results Component Value Date WBC 8.9 08/21/2016 HGB 15.2 08/21/2016 HCT 43.8 08/21/2016 MCV 90.3 08/21/2016 PLATELET 162 08/21/2016 Recent Labs 08/21/16 1310 INR 1.0 Chemistry Component Value Date/Time NA 139 08/21/2016 1310 K 4.4 08/21/2016 1310 CL 95 (L) 08/21/2016 1310 CO2 28 08/21/2016 1310 BUN 18 08/21/2016 1310 CREATININE 0.71 08/21/2016 1310 Component Value Date/Time CALCIUM 10.7 (H) 08/21/2016 1310 ALKPHOS 60 08/21/2016 1310 AST 32 (H) 08/21/2016 1310 ALT 38 (H) 08/21/2016 1310 BILITOT 0.7 08/21/2016 1310 Ultrasound 08/21/16 Ultrasound Dictation: 1. The hepatic parenchyma is echogenic and coarsened, consistent with hepatic steatosis, hepatomegaly, and a nodular contour consistent with known cirrhosis. No focal lesion is identified currently. 2. Details and limitations as above. 3.The visualized hepatic veins, visualized portal veins, and hepatic artery are patent with normal color and spectral wave forms, and normal directionality. Mildly elevated resistive indices of the hepatic artery. Details as above. Dinh Cowan MD ASSESSMENT/PLAN Milka Mendieta is a 76 y.o. 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 Her metabolic risks include diabetes, hypertension, elevated cholesterol, overweight. In addition she has a strong family history of cirrhosis, likely due to BA. 1. Cirrhosis. Diagnosed by fibroscan. Well compensated. MELD 6, which is normal. 2. BA. WE discussed that 5-10% weight loss can cause fat to come out of the liver and can cause fibrosis to go down. Encouraged her to continue to eat many vegetables in her diet, but to not limit protein. There is no reason for her to not be on Statin for her cardiovascular risk. Given her diabetes I would not recommend Vitamin E. 3. Portal hypertension. EDG done 07/14/15 shows no varices, plan to repeat in 2-3 years. Her EGD did show two gastric ulcers, discussed avoiding NSAIDs. 4. HCC surveillance. She is at increased risk of hepatocellular carcinoma (1-3% chance per year). She should have imaging of her liver every 6 months. Ultrasound today negative for hepatic lesions. Scheduled follow up u/s today for 6 months. Follow up in 6 months with labs, ultrasound and appointment. Molly Wallis APRN Section of Gastroenterology [place] [address] Copy: Salome Mcarthur APRN [address] [facility] [place] [place] [facility] [place] [address] 15 of this 30 minute visit in face to face discussion regarding disease, prognosis and treatment documented in this encounter Plan of Treatment Upcoming Encounters Date Type Department Care Team (Late st Contact Info) Description 02/06/2024 11:30 AM EDT Appointment [place] [address] Molly Wallis APRN [facility] [place] [address] 02/06/2024 12:15 PM EDT Laboratory Appointment Lab [address] [place] [phone] 02/06/2024 1:30 PM EDT Office [place] [phone] Molly Wallis APRN [facility] [place] [address] Scheduled Orders Name Type Priority Associated Diagnoses Orde r Schedule CBC (with Diff) Lab Routine NAFLD (nonalcoholic fatty liver disease) Expected: 02/17/2017, Expires: 08/21/2017 Comprehensive metabolic panel (non-fasting) Lab Routine NAFLD (nonalcoholic fatty liver disease) Expected: 02/17/2017, Expires: 08/21/2017 Prothrombin Time Lab Routine NAFLD (nonalcoholic fatty liver disease) Expected: 02/17/2017, Expires: 08/21/2017 documented as of this encounter Results * US Abdomen Limited (02/22/2017 10:26 AM EST) Anatomical Region Laterality Modality Abdomen Ultrasound 02/22/2017 10:2 4 AM EST Impressions 02/22/2017 10:45 AM EST ??Comparison 08/21/2016.1. There is stable enlarged nodular echogenic liver. No focal liver masses arevisualized. No free fluid.2. Stable mild dilatation of the common hepatic duct at 6 mm. ? Marilee Huffman MD Electronically Signed Final Report ?? 02/22/2017 10:44 am Narrative 02/22/2017 10:45 AM EST Abdominal ? (Signed Final 02/22/2017 10:44 am) PATIENT INFO: ID #: ? [id number] ?: ??[birth year] (76 yrs) Name: ? MILKA MENDIETA ?Visit Date: 02/22/2017 10:24 am PERFORMED BY: Performed By: ? Macario HI, ??Debbi Attending: ?Betty GALLO, Marilee Ragsdale Referred By: ?MOLLY WALLIS Secondary Phy.: ?? MOLLY WALLIS HSE MANAGER Location: ? [place] SERVICE(S) PROVIDED: ??UABDLIM - Abdominal Limited Survey Single ? 57197 ??Organ or Quadrant - [id number] INDICATIONS: ??Compensated cirrhosis, assess for HCC COMPARISON: Prior US: ??08/21/16 ------ LIVER: ------ Right Lobe Length: ?? 22.4 ?? cm Echogenicity/Echotexture: ?? Increased in echogenicity. ? Coarse parenchyma Comment: ?Hepatomegaly GALLBLADDER: Cholelithiasis: ?Surgically absent BILIARY TRACT: Intrahepatic Ducts: ?? Normal Extrahepatic Ducts: ?? Normal Common Duct Size: ? 6.0 ? mm --------- PANCREAS: --------- Head: ? Normal Tail: ? Poorly visualized due to overlying bowel Body: ? Normal RIGHT KIDNEY: Size (cm) ?L: ??9.7 Cortical Thickness: ?Normal Cortical Echogenicity: ?? Normal Hydronephrosis: ?No sonographic evidence ------ AORTA: ------ Measurements (cm): Proximal ? AP: ?? 2.0 ---- IVC: ---- Normal in caliber where visualized. FLUID COLLECTIONS: No ascites in the imaged RUQ. Procedure Note Marilee Hunt MD - 02/22/2017 Abdominal (Signed Final 02/22/2017 10:44 am) PATIENT INFO: ID #: [id number] : [birth year] (76 yrs) Name: MILKA MENDIETA Visit Date: 02/22/2017 10:24 am PERFORMED BY: Performed By: Debbi Sorto RDMS Attending: Marilee Hernández MD Referred By: MOLLY WALLIS Secondary Phy.: MOLLY WALLIS APRN Location: [place] SERVICE(S) PROVIDED: UABDLIM - Abdominal Limited Survey Single 19707 Organ or Quadrant - [id number] INDICATIONS: Compensated cirrhosis, assess for HCC COMPARISON: Prior US: 08/21/16 ------ LIVER: ------ Right Lobe Length: 22.4 cm Echogenicity/Echotexture: Increased in echogenicity. Coarse parenchyma Comment: Hepatomegaly GALLBLADDER: Cholelithiasis: Surgically absent BILIARY TRACT: Intrahepatic Ducts: Normal Extrahepatic Ducts: Normal Common Duct Size: 6.0 mm --------- PANCREAS: --------- Head: Normal Tail: Poorly visualized due to overlying bowel Body: Normal RIGHT KIDNEY: Size (cm) L: 9.7 Cortical Thickness: Normal Cortical Echogenicity: Normal Hydronephrosis: No sonographic evidence ------ AORTA: ------ Measurements (cm): Proximal AP: 2.0 ---- IVC: ---- Normal in caliber where visualized. FLUID COLLECTIONS: No ascites in the imaged RUQ. IMPRESSION Comparison 08/21/2016.1. There is stable enlarged nodular echogenic liver. No focal liver masses arevisualized. No free fluid.2. Stable mild dilatation of the common hepatic duct at 6 mm. Marilee Hernández-MD Pepito Electronically Signed Final Report 02/22/2017 10:44 am Molly Wallis APRN IM US GEN ORDERAB LES documented in this encounter Visit Diagnoses Diagnosis NAFLD (nonalcoholic fatty liver disease) Other chronic nonalcoholic liver disease NAFLD (nonalcoholic fatty liver disease) Other chronic nonalcoholic liver disease documented in this encounter Care Teams Piercer Relationship Specialty Start Date End Date Salome Mcarthur APRN [address] [place] [address] PCP - General Family Medicine 05/30/15 documented as of this encounter
--- OUTSIDE RECORDS SUMMARY | 2023-12-02 18:36 | XMS_ITS | Encounter Summary ---
Author Organization [facility] [place] [address] Care Team Providers Care Spray Dyer Name Role Phone Salome Mcarthur APRN Primary Care Provider [phone] Encounter Details Date Type Department Care Team (Latest Contact Info) Description 10/17/2017 - 10/17/2017 11:59 PM EDT Hospital Encounter [place] [phone] Molly Cui CASH APPLICATIONS ASSOCIATE [facility] [place] [address] Discharge Disposition: Home Social History Tobacco Use [...] by mouth. 02/24/2009 fluticasone (FLONASE) 50 mcg/actuation [place], Suspension 1 spray by Each Nare route [...] 02/06/2024 11:30 AM EDT Appointment [place] [phone] Molly Cui APRN [facility] [place] [address] 02/06/2024 12:15 PM EDT Laboratory Appointment Lab [address] [place] [phone] 02/06/2024 1:30 PM EDT Office Visit [place] [address] Molly Cui APRN [facility] [place] [address] documented as of this encounter Procedures Procedure Name Priority Date/Time Associated Diagnosis Comments FILM LIBRARY STORAGE ONLY CT CHEST Routine 10/17/2017 12:00 AM EDT documented in this encounter Results * Film Library- Storage Only CT Chest (10/17/2017 12:00 AM EDT) Narrative [facility][NOTE 3] - 10/21/2017 8:25 PM EDT This exam is for storage only and is auto-finalizing. Molly Cui APRN IMG FILM LIBRARY O RDERABLES Performing Organization Address City/State/[facility] Co de Phone Number [place], [place] documented in this encounter Visit Diagnoses Not on filedocumented in this encounter Care Teams Spray Dyer Relationship Specialty Start Date End Date Salome Mcarthur APRN [address] [place] [address] PCP - General Family Medicine 05/30/15 documented as of this encounter
--- OUTSIDE RECORDS SUMMARY | 2023-12-02 18:36 | XMS_ITS | Encounter Summary ---
Author Organization [facility] Address [facility] [address] Care Team Providers Care Corporate Aircraft Mechanic Name Role Phone Salome Mcarthur APRN Primary Care Provider [phone] [phone] Encounter Details Date Type Department Care Team (Late st Contact Info) Description 07/14/2018 Telephone [place] [address] Crista Kyle Social History Tobacco Use Types [...] encounter Miscellaneous Notes * Telephone Encounter - Crista Kyle - 07/14/2018 11:03 AM EDT Patient calling to schedule her 6 month MRI, no orders in there currently Please advise documented in this encounter Plan of Treatment Upcoming Encounters Date Type Department Care Team (Late st Contact Info) Description 02/06/2024 11:30 AM EDT Appointment [place] [phone] Molly Cui BLOW MOLD TECHNICIAN [facility] [place] [address] 02/06/2024 12:15 PM EDT Laboratory Appointment Lab [address] [place] [address] 02/06/2024 1:30 PM EDT Office [place] [address] Molly Cui APRN [facility] [place] [address] documented as of this encounter Visit Diagnoses Not on filedocumented in this encounter Care Teams Corporate Aircraft Mechanic Relationship Specialty Start Date End Date Salome Mcarthur APRN [address] [place] [address] PCP - General Family Medicine 05/30/15 documented as of this encounter
--- OUTSIDE RECORDS SUMMARY | 2023-12-02 18:36 | XMS_ITS | Encounter Summary ---
Author Organization [facility] [place] [address] Care Team Providers Care Liquid Sugar Fortifier Name Role Phone Salome Mcarthur APRN Primary Care Provider [phone] Encounter Details Date Type Department Care Team (Late st Contact Info) Description 10/07/2017 Orders [place] [phone] Evy Howard Social History Tobacco Use Types [...] 02/06/2024 11:30 AM EDT [place] [address] Molly Cui RELOCATION MANAGER [facility] GASTROENTEROLOGY [place], [place] [address] 02/06/2024 12:15 PM EDT Laboratory Appointment Lab [address] [place] [phone] 02/06/2024 1:30 PM EDT Office [place] [address] Molly Cui RELOCATION MANAGER [facility] [place] [address] documented as of this encounter Visit Diagnoses Not on filedocumented in this encounter Care Teams Liquid Sugar Fortifier Relationship Specialty Start Date End Date Salome Mcarthur APRN [address] [place] [address] PCP - General Family Medicine 05/30/15 documented as of this encounter
--- OUTSIDE RECORDS SUMMARY | 2023-12-02 18:36 | XMS_ITS | Encounter Summary ---
Author Organization [facility] [place] [address] Care Team Providers Care Operator Cavity Pump Name Role Phone Salome Mcarthur APRN Primary Care Provider [phone] Reason for Referral * Diagnostic Test (Routine) - Closed Specialty Diagnoses / Procedures Referred By Jose t Referred To Contact Radiology Diagnoses Hepatic cirrhosis, unspecified hepatic cirrhosis type, unspecified whether ascites present Procedures MRI Abdomen wwo Contrast (Generic) Molly Cui APRN [facility] [place] [address] [place] [address] Referral ID Status Reason Start Date Expiration Date V isits Requested Visits Authorized [id number] Closed Specialty Service Requested 07/14/2018 07/14/2019 1 1 Encounter Details Date Type Department Care Team (Late st Contact Info) Description 07/14/2018 Orders [place] [address] Molly Cui APRN [facility] [place] [address] Hepatic cirrhosis, unspecified hepatic cirrhosis [...] 02/06/2024 11:30 AM EDT Appointment [place] [phone] Molly Cui APRN [facility] [place] [address] 02/06/2024 12:15 PM EDT Laboratory Appointment Lab [address] [place] [address] 02/06/2024 1:30 PM EDT Office [place] [address] Molly Cui APRN [facility] [place] [address] documented as of this encounter Results * (ABNORMAL) Prothrombin Time (09/10/2018 1:46 PM EDT) Prothrombin Time 12.8(H) 9.4 - 12.5 sec [facility] [...] APRN HEMATOLOGY ORDERAB LES [facility] [place] [address] * (ABNORMAL) Comprehensive metabolic panel (non-fasting) (09/10/2018 1:46 PM EDT) Glucose 125 65 - 199 mg/dL [facility] Comment:Diabetes: >=200 mg/d L plus symptoms Blood Urea Nitrogen 18 8 - 18 mg/dL [facility] Creatinine 0.75 0.70 - 1.20 mg/dL [facility] Sodium 139 135 - 145 mmol/L [facility] Potassium 3.9 3.5 - 5.0 mmol/L [facility] Comment: Please note: ??Patients with WBC >100,000 may have falsely elevated Potassium levels. ??For accurate Potassium quantification in these patients send serum separator tube (gold top) for subsequent determinations. ??Contact the Clinical Chemistry Laboratory if there are any questions. Chloride 99 98 - 107 mmol/L [facility] Carbon Dioxide 26 22 - 31 mmol/L [facility] Anion Gap 14 5 - 15 mmol/L [facility] Calcium 10.5 8.5 - 10.5 mg/dL [facility] Protein, Total 7.9 6.1 - 8.0 gm/dL [facility] Albumin 4.7 3.2 - 5.2 gm/dL [facility] Aspartate Aminotransferase 39(H) 0 - 30 unit/L [facility] Alanine Aminotransferase 41(H) 0 - 30 unit/L [facility] Alkaline Phosphatase 69 40 - 104 unit/L [facility] Bilirubin, Total 0.7 0.2 - 1.3 mg/dL [facility] Est Glomerular Filtration Rate 77 >=60 mL/min/1. 73 m?? [facility] Comment: The eGFR was calculated using the CKD-EPI equation. As with all creatinine based estimates of kidney function, eGFR values calculated with the CKD-EPI equation are not accurate in patients with acute kidney failure, extremes of body mass or the acutely ill. http://[employer]/[facility] eGFR 89 >=60 mL/min/1. 73 m?? [facility] Comment: The eGFR was calculated using the CKD-EPI equation. As with all creatinine based estimates of kidney function, eGFR values calculated with the CKD-EPI equation are not accurate in patients with acute kidney failure, extremes of body mass or the acutely ill. http://[employer]/DHMCnkf Blood specimen (specimen) 09/10/2018 1:46 PM EDT 09/10/2018 2:00 PM EDT Narrative Resulting Agency Comment Spec In Lab Molly Cui APRN CHEMISTRY ORDERABL ES [facility] [place] [address] * MRI Abdomen wwo Contrast (Generic) (09/10/2018 [...] report, please contact the number below. ? Electronically signed by: Susan Callahan [facility] ([phone]), at 09/10/2018 3:09 PM Narrative 09/10/2018 3:09 PM EDT EXAMINATION: MRI [...] contact the number below. Electronically signed by: Susan Callahan [facility]([phone]), at 09/10/2018 3:09 PM Molly Cui APRN IMG MRI ORDERABLES documented in this encounter Visit Diagnoses Diagnosis Hepatic cirrhosis, unspecified hepatic cirrhosis type, unspecified whether ascites present Hepatic cirrhosis, unspecified hepatic cirrhosis type, unspecified whether ascites present documented in this encounter Care Teams Operator Cavity Pump Relationship Specialty Start Date End Date Salome Mcarthur APRN [address] [place] [address] PCP - General Family Medicine 05/30/15 documented as of this encounter
--- OUTSIDE RECORDS SUMMARY | 2023-12-02 18:36 | XMS_ITS | Encounter Summary ---
Author Organization [facility] Address [facility] [place] [address] Care Team Providers Care Bell Cleaner Name Role Phone Salome Mcarthur APRN Primary Care Provider [phone] Encounter Details Date Type Department Care Team (Latest Contact Info) Description 02/22/2017 9:37 AM EST - 02/22/2017 11:59 PM [facility] Hospital Encounter [place] [phone] Molly Wallis [facility] [place] [address] NAFLD (nonalcoholic fatty liver disease) Discharge Disposition: [...] 02/06/2024 11:30 AM EDT Appointment [place] [phone] Molly Wallis APRN [facility] [place] [address] 02/06/2024 12:15 PM EDT Laboratory Appointment Lab [address] [place] [phone] 02/06/2024 1:30 PM EDT Office Visit [place] [phone] Molly Wallis APRN [facility] [place] [address] documented as of this encounter Procedures Procedure Name Priority Date/Time Associated Diagnosis Comments US ABDOMEN LIMITED Routine 02/22/2017 10 :26 AM EST NAFLD (nonalcoholic fatty liver disease) documented in this encounter Results * US [...] 10:44 am) PATIENT INFO: ID #: ? [id number] ?: ??[birth year] (76 yrs) Name: ? MILKA MENDIETA ?Visit Date: 02/22/2017 10:24 am PERFORMED BY: Performed By: ? Macario HI, ??Debbi Attending: ?Betty GALLO, Marilee Ragsdale Referred By: ?MOLLY WALLIS Secondary Phy.: ?? MOLLY WALLIS COMMUNICATION ELECTRONIC TECHNICIAN Location: ? [place] SERVICE(S) PROVIDED: ??UABDLIM - Abdominal Limited Survey Single ? [id number] ??Organ or Quadrant - [id number] INDICATIONS: ??Compensated cirrhosis, assess for HCC COMPARISON: [...] 02/22/2017 10:44 am) PATIENT INFO: ID #: [id number] : [birth year] (76 yrs) Name: MILKA MENDIETA Visit Date: 02/22/2017 10:24 am PERFORMED BY: Performed By: Debbi Sorto RDMS Attending: Marilee Hernández MD Referred By: MOLLY WALLIS Secondary Phy.: MOLLY WALLIS APRN Location: [place] SERVICE(S) PROVIDED: UABDLIM - Abdominal Limited Survey Single 06108 Organ or Quadrant - [id number] INDICATIONS: Compensated cirrhosis, assess for HCC COMPARISON: [...] Report 02/22/2017 10:44 am Molly Wallis APRN IMG US GEN ORDERAB LES documented in this encounter Visit Diagnoses Diagnosis NAFLD (nonalcoholic fatty liver disease) Other chronic nonalcoholic liver disease documented in this encounter Care Teams Bell Cleaner Relationship Specialty Start Date End Date Salome Mcarthur APRN [address] [place] [address] PCP - General Family Medicine 05/30/15 documented as of this encounter
--- OUTSIDE RECORDS SUMMARY | 2023-12-02 18:36 | XMS_ITS | Encounter Summary ---
Author Organization [facility] Address [facility] [place] [address] Care Team Providers Care Burn Nurse Name Role Phone Salome Mcarthur APRN Primary Care Provider [phone] Encounter Details Date Type Department Care Team (Latest Contact Info) Description 08/22/2017 10:30 AM EDT Laboratory Appointment Lab [address] [place] [address] NAFLD (nonalcoholic fatty liver disease) Social History [...] EDT Appointment [place] [address] Molly Cui ELECTROMECHANICAL EQUIPMENT TESTER [facility] [place] [address] 02/06/2024 12:15 PM EDT Laboratory Appointment Lab [address] [place] [phone] 02/06/2024 1:30 PM EDT Office [place] [address] Molly Cui APRN [facility] [place] [address] documented as of this encounter Procedures Procedure Name Priority Date/Time Associated Diagnosis Comments HEMOGRAM Routine 08/22/2017 10:25 AM EDT NAFLD (nonalcoholic fatty liver disease) DIFFERENTIAL, AUTOMATED Routine 08/22/2017 10:25 AM EDT NAFLD (nonalcoholic fatty liver disease) PROTHROMBIN TIME Routine 08/22/2017 10:2 5 AM EDT NAFLD (nonalcoholic fatty liver disease) CBC (WITH DIFF) Routine 08/22/2017 10:25 AM EDT NAFLD (nonalcoholic fatty liver disease) COMPREHENSIVE METABOLIC PANEL Routine 08/22/2017 10:25 AM EDT NAFLD (nonalcoholic fatty liver disease) documented in this encounter Results * Differential, Automated (08/22/2017 10:25 AM EDT) Neutrophil % 52.1 % [facility] Neutrophil Absolute 2.92 1.70 - 6.10 x10(3)/[facility] Lymph % 35.9 % [facility] Lymphocytes Abs 2.0 0.9 - 3.2 x10(3)/[facility] Monocyte % 9.1 % [facility] Monocyte Abs 0.5 0.3 - 0.9 x10(3)/[facility] Eos % 1.8 % [facility] Eosinophils Abs 0.1 0.0 - 0.4 x10(3)/[facility] Basophil % 0.7 % [facility] Baso Absolute 0.0 0.0 - 0.1 x10(3)/[facility] Immature Gran % 0.40 % [facility] Comment: Immature granulocytes(IG's)percentage and absolute count will include metamyelocytes, myelocytes, and promyelocytes. Blood smears from CBCs yielding IG's will be scanned manually for concordance. If this scan disagrees with the automated IG or if promyelocytes are noted, a manual differential will be performed. Immature Gran Absolute 0.02 0.00 - 0.04 x10(3)/mcL [facility] Blood specimen (specimen) 08/22/2017 10:25 AM EDT 08/22/2017 10:43 AM EDT Narrative Resulting Agency Comment Spec In Lab Molly Cui APRN HEMATOLOGY ORDERAB LES [facility] [place] [address] * (ABNORMAL) Hemogram (08/22/2017 10:25 AM EDT) White Blood Cell 5.6 4.0 - 9.5 x10(3)/mc L [facility] Red Blood Cell 4.42 4.00 - 5.21 x10(6)/mc L [facility] Hemoglobin 14.0 11.7 - 15.5 gm/dL [facility] Hematocrit 40.5 35.7 - 45.8 % [facility] Mean Cell Volume 91.6 82.6 - 94.4 fL [facility] Mean Cell Hemoglobin 31.7 27.1 - 32.0 pg [facility] Mean Cell Hemoglobin Concentration 34.6 31.7 - 35.0 gm/dL [facility] Platelet 118(L) 145 - 357 x10(3)/mc L [facility] RDW Standard Deviation 42.4 37.0 - 46.0 [facility] RDW coefficient of variation 12.6 11.5 - 14.1 % [facility] Mean Platelet Volume 11.9 7.6 - 12.9 fL [facility] NRBC% auto 0.0 % [facility] NRBC Absolute 0.000 0.000 - 0.000 x10(3)/mc L [facility] Blood specimen (specimen) 08/22/2017 10:25 AM EDT 08/22/2017 10:43 AM EDT Narrative Resulting Agency Comment Spec In Lab Molly Cui L[facility] HEMATOLOGY ORDERAB LES Performing Organization Address [facility] de Phone Number [facility] [place] [address] * Prothrombin Time (08/22/2017 10:25 AM EDT) Prothrombin Time 11.7 9.4 - 12.5 sec [facility] International Normalization Ratio 1.0 [facility] Comment: An INR <2.0 [...] depending on clinical circumstances. Blood specimen (specimen) 08/22/2017 10:25 AM EDT 08/22/2017 10:43 AM EDT Narrative Resulting Agency Comment Spec In Lab Molly Cui L[facility] HEMATOLOGY ORDERAB LES Performing Organization Address [facility] de Phone Number [facility] [place] [address] * (ABNORMAL) Comprehensive metabolic panel (non-fasting) (08/22/2017 10:25 AM EDT) Glucose 163 65 - 199 mg/dL [facility] Comment:Diabetes: >=200 mg/d L plus symptoms Blood Urea Nitrogen 14 8 - 18 mg/dL [facility] Creatinine 0.57(L) 0.70 - 1.20 mg/dL [facility] Sodium 141 135 - 145 mmol/L [facility] Potassium 4.3 3.5 - 5.0 mmol/L [facility] Comment: Please note: ??Patients with WBC >100,000 may have falsely elevated Potassium levels. ??For accurate Potassium quantification in these patients send serum separator tube (gold top) for subsequent determinations. ??Contact the Clinical Chemistry Laboratory if there are any questions. Chloride 99 98 - 107 mmol/L [facility] Carbon Dioxide 28 22 - 31 mmol/L [facility] Anion Gap 14 5 - 15 mmol/L [facility] Calcium 10.3 8.5 - 10.5 mg/dL [facility] Protein, Total 7.4 6.1 - 8.0 gm/dL [facility] Albumin 5.0 3.2 - 5.2 gm/dL [facility] Aspartate Aminotransferase 30 0 - 30 unit/L [facility] Alanine Aminotransferase 32(H) 0 - 30 unit/L [facility] Alkaline Phosphatase 72 40 - 104 unit/L [facility] Bilirubin, Total 0.5 0.2 - 1.3 mg/dL [facility] Est Glomerular Filtration Rate >60 >=60 [facility] Comment: The reported eGFR should be multiplied by 1.2 for patients. The MDRD is not an appropriate measure of renal function for patients with body mass extremes or in patients with acute kidney failure. [email or web address]/DHnkdep [email or web address]/[email or web address] Blood specimen (specimen) 08/22/2017 10:25 AM EDT 08/22/2017 10:43 AM EDT Narrative Resulting Agency Comment Spec In Lab Molly Cui APRN CHEMISTRY ORDERABL ES [facility] [place] [address] documented in this encounter Visit Diagnoses Diagnosis NAFLD (nonalcoholic fatty liver disease) Other chronic nonalcoholic liver disease documented in this encounter Care Teams Burn Nurse Relationship Specialty Start Date End Date Salome Mcarthur APRN [address] [address] PCP - General Family Medicine 05/30/15 documented as of this encounter
--- OUTSIDE RECORDS SUMMARY | 2023-12-02 18:36 | XMS_ITS | Encounter Summary ---
Author Organization [facility] [place] [address] Care Team Providers Care Professor Of Forest Planning Name Role Phone Salome Mcarthur APRN Primary Care Provider [phone] Reason for Visit * Reason Comments Follow-up Encounter Details Date Type Department Care Team (Late st Contact Info) Description 02/22/2017 1:00 PM EST Office [place] [phone] Lani Wallis APRN [facility] [place] [address] NAFLD (nonalcoholic fatty liver disease) Social History [...] Sign Reading Time Taken Comments Blood Pressure 125/57 02/22/2017 12:51 PM EST Pulse 98 02/22/2017 12:51 PM EST Temperature - - Respiratory Rate - - Oxygen Saturation - - Inhaled Oxygen Concentration - - Weight 66.2 kg (146 lb) 02/22/2017 12:51 PM EST Height 156.2 cm (5' 1.5) 02/22/2017 12:51 PM ES T Body Mass Index 27.14 02/22/2017 12:51 PM EST documented in this encounter Progress Notes * Lani Wallis APRN - 02/22/2017 1:00 PM EST HEPATOLOGY Follow up Visit Nick Mendieta 1940 RECORD CHANGER ASSEMBLER: LANI WALLIS APRN PCP: Salome Mcarthur APRN Requesting Provider: REASON FOR CONSULTATION: BA Cirrhosis HISTORY OF PRESENT ILLNESS Nick Mendieta is a 76 y.o. year old female With BA Cirrhosis who returns today for follow up. She stopped taking Metformin and her diarrhea resolved. Her blood sugar has been slightly higher since stopping Metformin, around 200. She is now not taking anything for her diabetes. She has been feeling more tired. Her dog wakes her up in the middle of the night. She notices that it's hard to find words and she has a hard time going to sleep at night - she has an easier time going to sleep early in the morning. She is also wondering why she has more of a bulge on her left side of her abdomen. Denies ascites, melena. PAST MEDICAL/SURGICAL HISTORY 1. 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 Fibroscan 06/28/15: 28.4 kPa; 6% IQR; 100% success rate, F4 ?? Risk factors: diabetes, hyperlipidemia, HTN, overweight. Strong family hx of BA cirrhosis. ?? Ultrasound 07/22/2015: no lesions ?? EGD 07/14/2015: no varices, gastric ulcers (2). 2 Diabetes 3. Hypertension 4. Elevated cholesterol MEDICATIONS Outpatient Prescriptions Marked as Taking for the 02/22/17 encounter (Office Visit) with Lani Wallis APRN [...] mg by mouth 2 times daily. ??? red yeast rice 600 mg Tab Take 600 mg by mouth 2 times daily. ??? triamcinolone (KENALOG) 0.1 % cream Apply 1 Application topically as needed. ??? lisinopril-hydrochlorothiazide (PRINZIDE;ZESTORETIC) 10-12.5 mg per tablet Take 1 tablet by mouth daily. ??? acetaminophen (TYLENOL) 325 mg tablet Take 650 mg by mouth every 4 hours as needed. ??? [place]aling-3 Fatty Acids-Vitamin E (FISH OIL) 1,000 mg Cap Take 3,000 mg by mouth daily. ??? multivitamin (THERAGRAN) tablet Take 1 tablet by mouth daily. ??? amitriptyline (ELAVIL) 50 mg tablet Take 50 mg by mouth nightly. Current Facility-Administered Medications for the 02/22/17 encounter (Office Visit) with Lani Wallis APRN [...] 29 of acute hepatitis PHYSICAL EXAM Vitals: 02/22/17 1251 BP: 125/57 Pulse: 98 Weight: 66.2 kg (146 lb) Height: 156.2 cm (5' 1.5) Body mass index is 27.14 kg/(m^2). Gen: Well appearing, no apparent distress. Skin: no spider angiomata, no palmar erythema, no jaundice. HEENT: Sclerae anicteric, pupils equal, round, react to light. Pharynx unremarkable. Neck is supple, no adenopathy, no thyromegaly. Abdomen: soft, non-tender. Liver is felt well below costal margin, extending midline as well. Spleen is felt on left side, appears to bulge out. Extremities: No edema. Neuro: alert and oriented x3, no asterixis or tremor. Lab Results Component Value Date WBC 7.4 02/22/2017 HGB 14.3 02/22/2017 HCT 40.5 02/22/2017 MCV 90.2 02/22/2017 PLATELET 139 (L) 02/22/2017 Recent Labs 02/22/17 09 INR 1.0 Chemistry Component Value Date/Time NA 136 02/22/2017 0929 K 4.2 02/22/2017 0929 CL 96 (L) 02/22/2017 0929 CO2 26 02/22/2017 0929 BUN 18 02/22/2017 0929 CREATININE 0.64 (L) 02/22/2017 09 Component Value Date/Time CALCIUM 10.2 02/22/2017 0929 ALKPHOS 74 02/22/2017 0929 AST 26 02/22/2017 0929 ALT 29 02/22/2017 0929 BILITOT 0.4 02/22/2017 0929 Ultrasound 02/22/17: Comparison 08/21/2016.1. There is stable enlarged nodular echogenic liver. No focal liver masses arevisualized. No free fluid.2. Stable mild dilatation of the common hepatic duct at 6 mm. ?? SSMENT/PLAN Nick Mendieta is a 76 y.o. 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 Her metabolic risks include diabetes, hypertension, elevated cholesterol, overweight. In addition she has a strong family history of cirrhosis, likely due to BA. 1. Cirrhosis. Diagnosed by fibroscan. Well compensated. MELD 6, which is normal. 2. BA. She plans on walking on her treadmill more. She has stopped Metformin due to diarrhea, andher blood sugar today is elevated to 200. She may not develop diarrhea on Metformin XR, and she will discuss this with her PCP when she sees her next. In addition, increased exercise will help lower her blood sugar and decrease fat in the liver. 3. Portal hypertension. EDG done 07/14/15 shows [...] follow up u/s today for 6 months. 5. Hepatic encephalopathy -endorses some difficulty word finding, trouble sleeping at night. Difficult to tell if this is encephalopathy, and I am reluctant to use Lactulose given her recent history of diarrhea which she is just starting to recover from. Plan to try Rifaxamin 550mg BID, if improvement in symptoms, plan to continue. If not, patient can stop. Gave her samples to try for 9 days and sent in script, which may or may not be approved by insurance. Follow up in 6 months with labs, ultrasound and appointment. Lani Wallis APRN Section of Gastroenterology [place] [address] Copy: Salome Mcarthur APRN [address] / [place] [address] 25 of this 30 minute visit in face to face discussion regarding disease, prognosis and treatment documented in this encounter Plan of Treatment Upcoming Encounters Date Type Department Care Team (Late st Contact Info) Description 02/06/2024 11:30 AM EDT [place] [phone] Lani Wallis APRN [facility] [place] [address] 02/06/2024 12:15 PM EDT Laboratory Appointment Lab [address] [place] [phone] 02/06/2024 1:30 PM EDT Office [place] [phone] Lani Wallis APRN [facility] [place] [address] documented as of this encounter Results * Prothrombin Time (08/22/2017 10:25 AM EDT) Prothrombin Time 11.7 9.4 - 12.[address] [facility] International Normalization Ratio 1.[address] [facility] Comment: An INR <2.0 indicates [...] Lab Lani Wallis APRN HEMATOLOGY ORDERAB LES [facility] [place] [address] * (ABNORMAL) Comprehensive metabolic panel (non-fasting) (08/22/2017 10:25 AM EDT) Pathologist [facility] Glucose 163 65 - 199 mg/dL [facility] Comment:Diabetes: >=200 mg/d L plus symptoms Blood Urea Nitrogen 14 8 - 18 mg/dL [facility] Creatinine 0.57(L) 0.70 - 1.20 mg/dL [facility] Sodium 141 135 - 145 mmol/L [facility] Potassium 4.3 3.5 - 5.0 mmol/L [facility] Comment: Please note: ??Patients with WBC >100,000 may have falsely elevated Potassium levels. ??For accurate Potassium quantification in these patients send serum separator tube (gold top) for subsequent determinations. ??Contact the Clinical Chemistry Laboratory if there are any questions. Chloride 99 98 - 107 mmol/L [facility] Carbon Dioxide 28 22 - 31 mmol/L [facility] Anion Gap 14 5 - 15 mmol/L [facility] Calcium 10.3 8.5 - 10.5 mg/dL [facility] Protein, Total 7.4 6.1 - 8.0 gm/dL [facility] Albumin 5.0 3.2 - 5.2 gm/dL [facility] Aspartate Aminotransferase 30 0 - 30 unit/L [facility] Alanine Aminotransferase 32(H) 0 - 30 unit/L [facility] Alkaline Phosphatase 72 40 - 104 unit/L [facility] Bilirubin, Total 0.5 0.2 - 1.3 mg/dL [facility] Est Glomerular Filtration Rate >60 >=[address] [facility] Comment: The reported eGFR should be multiplied by 1.2 for patients. The MDRD is not an appropriate measure of renal function for patients with body mass extremes or in patients with acute kidney failure. [email or web address] [email or web address] Blood specimen (specimen) 08/22/2017 10:25 AM EDT 08/22/2017 10:43 AM EDT Narrative Resulting Agency Comment Spec In Lab Lani Wallis APRN CHEMISTRY ORDERABL ES [facility] [place] [address] * (ABNORMAL) US Abdomen Complete (08/22/2017 9:54 AM EDT) Anatomical Region Laterality Modality Abdomen, Vascular Ultrasound 08/22/2017 9:52 AM EDT Impressions 08/22/2017 12:24 PM EDT ??1. ??New indeterminate ill-defined 2 cm avascular hypoechoic lesion in the lefthepatic lobe. Hepatocellular carcinoma cannot be excluded. Recommend MRI forfurther characterization. UNEXPECTED FINDING.2. ??Persistent hepatomegaly with echogenic, coarse liver parenchyma and capsularnodularity, consistent with a combination cirrhosis and steatosis.3. ??No ascites.4. ??Mild splenomegaly, stable as compared to the August 2016 ultrasound.I have personally reviewed the image(s) and the residents interpretation andagree with the findings, Sumi Wilkinson at 08/22/2017 12:17 PM ?Sumi Wilkinson MD Electronically Signed Final Report ?? 08/22/2017 12:24 pm Narrative 08/22/2017 12:24 PM EDT Abdominal ?(Signed Final 08/22/2017 12:24 pm) PATIENT INFO: ID #: ? [id number] ?: ??[birth year] (77 yrs) Name: ? NICK Turner MENDIETA ?Visit Date: 08/22/2017 09:52 am PERFORMED BY: Performed By: ? Mary HI, ??Lis Attending: ?Jaja GALLO, Sumi Kang Resident: ? Aryan GALLO, Estephanie Nolen Referred By: ?LANI WALLIS Secondary Phy.: ?? LANI WALLIS RAILROAD FIRER/FIREMAN Location: ? [place] SERVICE(S) PROVIDED: ??[facility] - Abdominal Complete Survey - [id number] ?[id number] INDICATIONS: ??Cirrhosis, survey for hepatoma COMPARISON: RUQ abdominal ultrasound 02/22/17; complete abdominal ultrasound with liver Doppler interrogation 08/21/16. ------ LIVER: ------ Right Lobe Length: ?? 21.4 ?? cm Echogenicity/Echotexture: ?? Increased in echogenicity diffusely, ? mildly coarse and mildly nodular Comment: ?Ill-defined avascular hypoechoic lesion measuring ? approximately 1.1 z 0.8 x 1 cm in the left hepatic ? lobe. GALLBLADDER: Comment: ?Surgically absent BILIARY TRACT: Intrahepatic Ducts: ?? Normal Extrahepatic Ducts: ?? Normal where seen Common Duct Size: ? 5.0 ? mm --------- PANCREAS: --------- Head: ? Limited visualization due to overlying ? bowel Tail: ? Poorly visualized due to overlying bowel Body: ? Normal ------- SPLEEN: ------- Size (cm) ?L: ??14.2 ?AP: ??14.6 ?TV: ??7.0 Vol (ml): ?759.9 Comment: ?Splenomegaly- mild. RIGHT KIDNEY: Size (cm) ?L: ??11.4 Cortical Thickness: ?Normal Cortical Echogenicity: ?? Normal Hydronephrosis: ?No sonographic evidence LEFT KIDNEY: Size (cm) ?L: ??10.1 Cortical Thickness: ?Normal Cortical Echogenicity: ?? Normal Hydronephrosis: ?No sonographic evidence ------ AORTA: ------ Measurements (cm): Proximal ? AP: ?? 2.3 Mid ?AP: ?? 1.4 Distal ? AP: ?? 1.6 Comment: ?Normal in caliber where visualized, segments ? obscured by overlying bowel gas. ---- IVC: ---- Normal in caliber where visualized FLUID COLLECTIONS: No ascites in all four quadrants of the abdomen. Resulting Agency Comment Unexpected Finding Lani Wallis APRN [facility] GEN ORDERAB LES documented in this encounter Visit Diagnoses Diagnosis NAFLD (nonalcoholic fatty liver disease) Other chronic nonalcoholic liver disease NAFLD (nonalcoholic fatty liver disease) Other chronic nonalcoholic liver disease documented in this encounter Care Teams Professor Of Forest Planning Relationship Specialty Start Date End Date Salome Mcarthur APRN [address] [place] [address] PCP - General Family Medicine 05/30/15 documented as of this encounter
--- OUTSIDE RECORDS SUMMARY | 2023-12-02 18:36 | XMS_ITS | Encounter Summary ---
Author Organization [facility] Address [facility] [place] [address] Care Team Providers Care Ip Network Architect Name Role Phone Salome Mcarthur APRN Primary Care Provider [phone] Encounter Details Date Type Department Care Team (Latest Contact Info) Description 02/22/2017 9:35 AM EST Laboratory Appointment Lab [address] [place] [phone] Liver cirrhosis secondary to BA; NAFLD (nonalcoholic fatty liver disease) Social History [...] 02/06/2024 11:30 AM EDT [place] [phone] Molly Cui OPENING MACHINE CLEANER [facility] [place] [address] 02/06/2024 12:15 PM EDT Laboratory Appointment Lab [address] [place] [phone] 02/06/2024 1:30 PM EDT Office [place] [phone] Molly Cui APRN [facility] [place] [address] documented as of this encounter Procedures Procedure Name Priority Date/Time Associated Diagnosis Comments HEMOGRAM Routine 02/22/2017 9:29 AM EST Liver cirrhosis secondary to BA DIFFERENTIAL, AUTOMATED Routine 02/22/2017 9:29 AM EST Liver cirrhosis secondary to BA PROTHROMBIN TIME Routine 02/22/2017 9:29 AM EST Liver cirrhosis secondary to BA CBC (WITH DIFF) Routine 02/22/2017 9:29 AM EST Liver cirrhosis secondary to BA COMPREHENSIVE METABOLIC PANEL Routine 02/22/2017 9:29 AM EST Liver cirrhosis secondary to BA documented in this encounter Results * Differential, Automated (02/22/2017 9:29 AM EST) Neutrophil % 57.3 % [facility] Neutrophil Absolute 4.25 1.70 - 6.10 x10(3)/[facility] Lymph % 32.4 % [facility] Lymphocytes Abs 2.4 0.9 - 3.2 x10(3)/[facility] Monocyte % 7.9 % [facility] Monocyte Abs 0.6 0.3 - 0.9 x10(3)/[facility] Eos % 1.7 % [facility] Eosinophils Abs 0.1 0.0 - 0.4 x10(3)/[facility] Basophil % 0.4 % [facility] Baso Absolute 0.0 0.0 - 0.1 x10(3)/[facility] Immature Gran % 0.30 % [facility] Blood specimen (specimen) 02/22/2017 9:29 AM EST 02/22/2017 9:33 AM EST Narrative Resulting Agency Comment Spec In Lab Molly Cui APRN HEMATOLOGY ORDERAB LES [facility] [place] [address] * (ABNORMAL) Hemogram (02/22/2017 9:29 AM EST) White Blood Cell 7.4 4.0 - 9.5 x10(3)/mc L [facility] Red Blood Cell 4.49 4.00 - 5.21 x10(6)/mc L [facility] Hemoglobin 14.3 11.7 - 15.5 gm/dL [facility] Hematocrit 40.5 35.7 - 45.8 % [facility] Mean Cell Volume 90.2 82.6 - 94.4 fL [facility] Mean Cell Hemoglobin 31.8 27.1 - 32.0 pg [facility] Mean Cell Hemoglobin Concentration 35.3(H) 31.7 - 35.0 gm/dL [facility] Platelet 139(L) 145 - 357 x10(3)/mc L [facility] RDW Standard Deviation 40.0 37.0 - 46.0 fL [facility] RDW coefficient of variation 12.2 11.5 - 14.1 % [facility] Mean Platelet Volume 11.0 7.6 - 12.9 fL [facility] NRBC% auto 0.0 % [facility] NRBC Absolute 0.000 0.000 - 0.000 x10(3)/mc L [facility] Blood specimen (specimen) 02/22/2017 9:29 AM EST 02/22/2017 9:33 AM EST Narrative Resulting Agency Comment Spec In Lab Molly Cui APRN HEMATOLOGY ORDERAB LES Performing Organization Address [facility] de Phone Number [facility] [place] [address] * Prothrombin Time (02/22/2017 9:29 AM EST) Prothrombin Time 13.3 11.8 - 14.0 sec [facility] International Normalization Ratio 1.0 0.9 - 1.1 [facility] [...] depending on clinical circumstances. Blood specimen (specimen) 02/22/2017 9:29 AM EST 02/22/2017 9:33 AM EST Narrative Resulting Agency Comment Spec In Lab Molly Cui APRN HEMATOLOGY ORDERAB LES Performing Organization Address [facility] de Phone Number [facility] [place] [address] * (ABNORMAL) Comprehensive metabolic panel (non-fasting) (02/22/2017 9:29 AM EST) Pathologist [facility] [place] Glucose 209(H) 65 - 199 mg/dL [facility] Comment:Diabetes: >=200 mg/d L plus symptoms Blood Urea Nitrogen 18 8 - 18 mg/dL [facility] Creatinine 0.64(L) 0.70 - 1.20 mg/dL [facility] Sodium 136 135 - 145 mmol/L [facility] Potassium 4.2 3.5 - 5.0 mmol/L [facility] Comment: Please note: ??Patients with WBC >100,000 may have falsely elevated Potassium levels. ??For accurate Potassium quantification in these patients send serum separator tube (gold top) for subsequent determinations. ??Contact the Clinical Chemistry Laboratory if there are any questions. Chloride 96(L) 98 - 107 mmol/L [facility] Carbon Dioxide 26 22 - 31 mmol/L [facility] Anion Gap 14 5 - 15 mmol/L [facility] Calcium 10.2 8.5 - 10.5 mg/dL [facility] Protein, Total 7.1 6.1 - 8.0 gm/dL [facility] Albumin 4.6 3.2 - 5.2 gm/dL [facility] Aspartate Aminotransferase 26 0 - 30 unit/L [facility] Alanine Aminotransferase 29 0 - 30 unit/L [facility] Alkaline Phosphatase 74 40 - 104 unit/L [facility] Bilirubin, Total 0.4 0.2 - 1.3 mg/dL [facility] Est Glomerular Filtration Rate >60 >=60 [facility] Comment: The reported eGFR should be multiplied by 1.2 for patients. The MDRD is not an appropriate measure of renal function for patients with body mass extremes or in patients with acute kidney failure. http://[employer]/DHnkdep http://[email or web address]/DHMCnkf Blood specimen (specimen) 02/22/2017 9:29 AM EST 02/22/2017 9:33 AM EST Narrative Resulting Agency Comment Spec In Lab Molly Cui APRN CHEMISTRY ORDERABL ES [facility] [place] [phone] documented in this encounter Visit Diagnoses Diagnosis Liver cirrhosis secondary to BA Other chronic nonalcoholic liver disease NAFLD (nonalcoholic fatty liver disease) Other chronic nonalcoholic liver disease documented in this encounter Care Teams Ip Network Architect Relationship Specialty Start Date End Date Salome Mcarthur APRN [address] [place] [address] PCP - General Family Medicine 05/30/15 documented as of this encounter
--- OUTSIDE RECORDS SUMMARY | 2023-12-02 18:36 | XMS_ITS | Encounter Summary ---
Author Organization [facility] Address [facility] [place] [address] Care Team Providers Care Ribber Name Role Phone Salome Mcarthur APRN Primary Care Provider [phone] Encounter Details Date Type Department Care Team (Latest Contact Info) Description 02/26/2018 9:30 AM EST Laboratory Appointment Lab [address] [place] [phone] Hepatic cirrhosis, unspecified hepatic cirrhosis type, unspecified whether ascites present; NAFLD (nonalcoholic fatty liver disease) Social History [...] 02/06/2024 11:30 AM EDT [place] [phone] Molly Cui [employer] [facility] [place] [address] 02/06/2024 12:15 PM EDT Laboratory Appointment Lab [address] [place] [phone] 02/06/2024 1:30 PM EDT Office [place] [address] Molly Cui APRN [facility] [place] [address] documented as of this encounter Procedures Procedure Name Priority Date/Time Associated Diagnosis Comments HEMOGRAM Routine 02/26/2018 10:02 AM EST Hepatic cirrhosis, unspecified hepatic cirrhosis type, unspecified whether ascites present DIFFERENTIAL, AUTOMATED Routine 02/26/2018 10:02 AM EST Hepatic cirrhosis, unspecified hepatic cirrhosis type, unspecified whether ascites present AFP TUMOR MARKER Routine 02/26/2018 10:0 2 AM EST Hepatic cirrhosis, unspecified hepatic cirrhosis type, unspecified whether ascites present PROTHROMBIN TIME Routine 02/26/2018 10:0 2 AM EST Hepatic cirrhosis, unspecified hepatic cirrhosis type, unspecified whether ascites present CBC (WITH DIFF) Routine 02/26/2018 10:02 AM EST Hepatic cirrhosis, unspecified hepatic cirrhosis type, unspecified whether ascites present COMPREHENSIVE METABOLIC PANEL Routine 02/26/2018 10:02 AM EST Hepatic cirrhosis, unspecified hepatic cirrhosis type, unspecified whether ascites present documented in this encounter Results * Differential, Automated (02/26/2018 10:02 AM EST) Neutrophil % 57.5 % [facility] Neutrophil Absolute 3.52 1.70 - 6.10 x10(3)/[facility] LAB[facility] Lymph % 31.0 % [facility] Lymphocytes Abs 1.9 0.9 - 3.2 x10(3)/[facility] LABORATORY Monocyte % 9.1 % [facility] Monocyte Abs 0.6 0.3 - 0.9 x10(3)/[facility] LABORATORY Eos % 1.6 % [facility] Eosinophils Abs 0.1 0.0 - 0.4 x10(3)/[facility] LABORATORY Basophil % 0.5 % [facility] Baso Absolute 0.0 0.0 - 0.1 x10(3)/[facility] LABORATORY Immature Gran % 0.30 % [facility] Comment: Immature granulocytes(IG's)percentage and absolute count will include metamyelocytes, myelocytes, and promyelocytes. Blood smears from CBCs yielding IG's will be scanned manually for concordance. If this scan disagrees with the automated IG or if promyelocytes are noted, a manual differential will be performed. Immature Gran Absolute 0.02 0.00 - 0.04 x10(3)/[facility] LABORATORY Blood specimen (specimen) 02/26/2018 10:02 AM EST 02/26/2018 10:15 AM EST Narrative Resulting Agency Comment Spec In Lab Molly Cui APRN HEMATOLOGY ORDERAB LES Performing Organization Address City/State/[facility] Co de Phone Number [facility] [place] [address] * (ABNORMAL) Hemogram (02/26/2018 10:02 AM EST) White Blood Cell 6.1 4.0 - 9.5 x10(3)/mc L [facility] Red Blood Cell 4.49 4.00 - 5.21 x10(6)/mc L [facility] Hemoglobin 14.1 11.7 - 15.5 gm/dL [facility] Hematocrit 41.4 35.7 - 45.8 % [facility] Mean Cell Volume 92.2 82.6 - 94.4 fL [facility] Mean Cell Hemoglobin 31.4 27.1 - 32.0 pg [facility] Mean Cell Hemoglobin Concentration 34.1 31.7 - 35.0 gm/dL [facility] Platelet 111(L) 145 - 357 x10(3)/mc L [facility] RDW Standard Deviation 42.4 37.0 - 46.0 fL [facility] RDW coefficient of variation 12.5 11.5 - 14.1 % [facility] Mean Platelet Volume 11.8 7.6 - 12.9 fL [facility] NRBC% auto 0.0 % [facility] NRBC Absolute 0.000 0.000 - 0.000 x10(3)/mc L [facility] Blood specimen (specimen) 02/26/2018 10:02 AM EST 02/26/2018 10:15 AM EST Narrative Resulting Agency Comment Spec In Lab Molly Cui APRN HEMATOLOGY ORDERAB LES [facility] [place] [address] * (ABNORMAL) Comprehensive metabolic panel (non-fasting) (02/26/2018 10:02 AM EST) Glucose 137 65 - 199 mg/dL [facility] Comment:Diabetes: >=200 mg/d L plus symptoms Blood Urea Nitrogen 20(H) 8 - 18 mg/dL [facility] Creatinine 0.64(L) 0.70 - 1.20 mg/dL [facility] Sodium 141 135 - 145 mmol/L [facility] Potassium 4.3 3.5 - 5.0 mmol/L [facility] Comment: Please note: ??Patients with WBC >100,000 may have falsely elevated Potassium levels. ??For accurate Potassium quantification in these patients send serum separator tube (gold top) for subsequent determinations. ??Contact the Clinical Chemistry Laboratory if there are any questions. Chloride 101 98 - 107 mmol/L [facility] Carbon Dioxide 24 22 - 31 mmol/L [facility] Anion Gap 16(H) 5 - 15 mmol/L [facility] Calcium 10.0 8.5 - 10.5 mg/dL [facility] Protein, Total 7.7 6.1 - 8.0 gm/dL [facility] Albumin 4.5 3.2 - 5.2 gm/dL [facility] Aspartate Aminotransferase 24 0 - 30 unit/L [facility] Alanine Aminotransferase 28 0 - 30 unit/L [facility] Alkaline Phosphatase 81 40 - 104 unit/L [facility] Bilirubin, Total 0.4 0.2 - 1.3 mg/dL [facility] Est Glomerular Filtration Rate 87 >=60 mL/min/1. 73 m?? [facility] Comment: The eGFR was calculated using the CKD-EPI equation. As with all creatinine based estimates of kidney function, eGFR values calculated with the CKD-EPI equation are not accurate in patients with acute kidney failure, extremes of body mass or the acutely ill. [email or web address] eGFR 100 >=60 mL/min/1. 73 m?? [facility] Comment: The eGFR was calculated using the CKD-EPI equation. As with all creatinine based estimates of kidney function, eGFR values calculated with the CKD-EPI equation are not accurate in patients with acute kidney failure, extremes of body mass or the acutely ill. [email or web address] Blood specimen (specimen) 02/26/2018 10:02 AM EST 02/26/2018 10:15 AM EST Narrative Resulting Agency Comment Spec In Lab Molly Cui APRN CHEMISTRY ORDERABL ES [facility] [place] [address] * Prothrombin Time (02/26/2018 10:02 AM EST) Prothrombin Time 11.9 9.4 - 12.5 sec [facility] [...] depending on clinical circumstances. Blood specimen (specimen) 02/26/2018 10:02 AM EST 02/26/2018 10:15 AM EST Narrative Resulting Agency Comment Spec In Lab Molly Cui APRN HEMATOLOGY ORDERAB LES Performing Organization Address City/[facility]/ZIP Co de Phone Number [facility] [place] [address] * AFP tumor marker (02/26/2018 10:02 AM EST) Alpha Fetoprotein 4.3 <=8.3 ng/mL [facility] Blood specimen (specimen) 02/26/2018 10:02 AM EST 02/26/2018 10:15 AM EST Narrative Resulting Agency Comment Spec In Lab Molly Cui APRN CHEMISTRY ORDERABL ES Performing Organization Address [facility] Co de Phone Number [facility] [place] [address] documented in this encounter Visit Diagnoses Diagnosis Hepatic cirrhosis, unspecified hepatic cirrhosis type, unspecified whether ascites present NAFLD (nonalcoholic fatty liver disease) Other chronic nonalcoholic liver disease documented in this encounter Care Teams Ribber Relationship Specialty Start Date End Date Salome Mcarthur APRN [address] [place] [address] PCP - General Family Medicine 05/30/15 documented as of this encounter
--- OUTSIDE RECORDS SUMMARY | 2023-12-02 18:36 | XMS_ITS | Encounter Summary ---
Author Organization [facility] Address [facility] [place] [address] Care Team Providers Care Fagot Maker Name Role Phone Salome Mcarthur APRN Primary Care Provider [phone] Encounter Details Date Type Department Care Team (Latest Contact Info) Description 08/21/2016 12:55 PM EDT Laboratory Appointment Lab [address] [place] [address] NAFLD (nonalcoholic fatty liver disease) [...] 02/06/2024 11:30 AM EDT Appointment [place] [address] Molly Cui NUTRITION COUNSELOR [facility] [place] [address] 02/06/2024 12:15 PM EDT Laboratory Appointment Lab [address] [place] [phone] 02/06/2024 1:30 PM EDT Office Visit [place] [address] Molly Cui APRN [facility] [place] [address] documented as of this encounter Procedures Procedure Name Priority Date/Time Associated Diagnosis Comments HEMOGRAM Routine 08/21/2016 1:10 PM EDT NAFLD (nonalcoholic fatty liver disease) DIFFERENTIAL, AUTOMATED Routine 08/21/2016 1:10 PM EDT NAFLD (nonalcoholic fatty liver disease) PROTHROMBIN TIME Routine 08/21/2016 1:10 PM EDT NAFLD (nonalcoholic fatty liver disease) CBC (WITH DIFF) Routine 08/21/2016 1:10 PM EDT NAFLD (nonalcoholic fatty liver disease) COMPREHENSIVE METABOLIC PANEL Routine 08/21/2016 1:10 PM EDT NAFLD (nonalcoholic fatty liver disease) documented in this encounter Results * (ABNORMAL) Differential, Automated (08/21/2016 1:10 PM EDT) Neutrophil % 50.3 % [facility] Neutrophil Absolute 4.49 1.70 - 6.10 x10(3)/mc L [facility] Lymph % 39.2 % [facility] Lymphocytes Abs 3.5(H) 0.9 - 3.2 x10(3)/mc L [facility] Monocyte % 8.0 % [facility] Monocyte Abs 0.7 0.3 - 0.9 x10(3)/mc L [facility] Eos % 1.5 % [facility] Eosinophils Abs 0.1 0.0 - 0.4 x10(3)/mc L [facility] Basophil % 0.8 % [facility] Baso Absolute 0.1 0.0 - 0.1 x10(3)/mc L [facility] Immature Gran % 0.20 % [facility] Comment: Immature granulocytes(IG's)percentage and absolute count will include metamyelocytes, myelocytes, and promyelocytes. Blood smears from CBCs yielding IG's will be scanned manually for concordance. If this scan disagrees with the automated IG or if promyelocytes are noted, a manual differential will be performed. Immature Gran Absolute 0.02 0.00 - 0.04 x10(3)/mc L [facility] Blood specimen (specimen) 08/21/2016 1:10 PM EDT 08/21/2016 1:25 PM EDT Narrative Resulting Agency Comment Spec In Lab Beti Laureano MD HEMATOLOGY ORDERABLE S [facility] [place] [address] * Hemogram (08/21/2016 1:10 PM EDT) White Blood Cell 8.9 4.0 - 9.5 x10(3)/[facility] LABORATORY Red Blood Cell 4.85 4.00 - 5.21 x10(6)/[facility] LABORATORY Hemoglobin 15.2 11.7 - 15.5 gm/dL [facility] Hematocrit 43.8 35.7 - 45.8 % [facility] Mean Cell Volume 90.3 82.6 - 94.4 fL [facility] Mean Cell Hemoglobin 31.3 27.1 - 32.0 pg [facility] Mean Cell Hemoglobin Concentration 34.7 31.7 - 35.0 gm/dL [facility] Platelet 162 145 - 357 x10(3)/[facility] LABORATORY RDW Standard Deviation 40.9 37.0 - 46.0 fL [facility] RDW coefficient of variation 12.5 11.5 - 14.1 % [facility] Mean Platelet Volume 11.6 7.6 - 12.9 fL [facility] NRBC% auto 0.0 % [facility] NRBC Absolute 0.000 0.000 - 0.000 x10(3)/[facility] LABORATORY Blood specimen (specimen) 08/21/2016 1:10 PM EDT 08/21/2016 1:25 PM EDT Narrative Resulting Agency Comment Spec In Lab Beti Laureano MD HEMATOLOGY ORDERABLE S Performing Organization Address [facility] Co de Phone Number [facility] [place] [address] * Prothrombin Time (08/21/2016 1:10 PM EDT) Prothrombin Time 13.5 12.0 - 15.0 sec [facility] Comment: An INR [...] may be appropriate depending on clinical circumstances. International Normalization Ratio 1.0 0.9 - 1.1 [facility] Blood specimen (specimen) 08/21/2016 1:10 PM EDT 08/21/2016 1:25 PM EDT Narrative Resulting Agency Comment Spec In Lab Beti Laureano MD HEMATOLOGY ORDERABLE S Performing Organization Address [facility] Co de Phone Number [facility] [place] [address] * (ABNORMAL) Comprehensive metabolic panel (non-fasting) (08/21/2016 1:10 PM EDT) Glucose 167 65 - 199 mg/dL [facility] Comment:Diabetes: >=200 mg/d L plus symptoms Blood Urea Nitrogen 18 8 - 18 mg/dL [facility] Creatinine 0.71 0.70 - 1.20 mg/dL [facility] Comment: Please note that the pediatric reference intervals supplied above were not validated at [facility]. Results from pediatric patients should be interpreted in conjunction to the patient's age, height and muscle mass. Sodium 139 135 - 145 mmol/L [facility] Potassium 4.4 3.5 - 5.0 mmol/L [facility] Comment: Please note: ??Patients with WBC >100,000 may have falsely elevated Potassium levels. ??For accurate Potassium quantification in these patients send serum separator tube (gold top) for subsequent determinations. ??Contact the Clinical Chemistry Laboratory if there are any questions. Chloride 95(L) 98 - 107 mmol/L [facility] Carbon Dioxide 28 22 - 31 mmol/L [facility] Anion Gap 16(H) 5 - 15 mmol/L [facility] Calcium 10.7(H) 8.5 - 10.5 mg/dL [facility] Protein, Total 7.7 6.1 - 8.0 gm/dL [facility] Albumin 5.0 3.2 - 5.2 gm/dL [facility] Aspartate Aminotransferase 32(H) 0 - 30 unit/L [facility] Alanine Aminotransferase 38(H) 0 - 30 unit/L [facility] Alkaline Phosphatase 60 40 - 104 unit/L [facility] Bilirubin, Total 0.7 0.2 - 1.3 mg/dL [facility] Bilirubin, Direct 0.2 0.0 - 0.3 mg/dL [facility] Est Glomerular Filtration Rate >60 >=60 [facility] Comment: This estimated GFR (eGFR) value was calculated using the MDRD equation which has been validated on patients between the ages of 18 and 70. The MDRD should not be used to assess kidney function in patients < 18 years of age or in patients with extremes of body mass, or in patients with acute kidney failure. This value should be multiplied by 1.2 for patients. For further information please copy and paste the following links into your internet browser. [email or web address]/DHnkdep [email or web address]://[email or web address]/[email or web address] Blood specimen (specimen) 08/21/2016 1:10 PM EDT 08/21/2016 1:25 PM EDT Narrative Resulting Agency Comment Spec In Lab Beti Laureano MD CHEMISTRY ORDERABLES [facility] [place] [address] documented in this encounter Visit Diagnoses Diagnosis NAFLD (nonalcoholic fatty liver disease) Other chronic nonalcoholic liver disease documented in this encounter Care Teams Fagot Maker Relationship Specialty Start Date End Date Salome Mcarthur APRN [address] [place] [address] PCP - General Family Medicine 05/30/15 documented as of this encounter
--- OUTSIDE RECORDS SUMMARY | 2023-12-02 18:36 | XMS_ITS | Encounter Summary ---
Author Organization [facility] Address [facility] [place] [address] Care Team Providers Care Pharmacy Scheduler Name Role Phone Salome Mcarthur APRN Primary Care Provider [phone] Encounter Details Date Type Department Care Team (Late st Contact Info) Description 10/17/2017 External Results [place] [phone] Malika Cantrell RN Social History Tobacco Use Types Packs/Day Years [...] 02/06/2024 11:30 AM EDT Appointment [place] [address] Molly Cui ASSEMBLER [facility] [facility] [address] 02/06/2024 12:15 PM EDT Laboratory Appointment Lab [address] [place] [address] 02/06/2024 1:30 PM EDT Office Visit [place] [address] Molly Cui ASSEMBLER [employer] [facility] [place] [address] documented as of this encounter Procedures Procedure Name Priority Date/Time Associated Diagnosis Comments EXTERNAL LAB CBC CMP THYROID RESULTS PANEL Routine 10/17/2017 EXTERNAL LAB CBC CMP THYROID RESULTS PANEL Routine 10/17/2017 documented in this encounter Results * CBC / CMP / Thyroid External Results (10/17/2017) Alpha Fetoprotein 3.0 10/17/2017 Historical Provider MD CATRACHITA RICH * CBC / CMP / Thyroid External Results (10/17/2017) White Blood Cell 5.8 Red Blood Cell 4.56 Hemoglobin 14.3 Hematocrit 41.7 Mean Cell Volume 91.4 Platelet 118 Sodium 140 Potassium 4.1 Chloride 99 Carbon Dioxide 27 Blood Urea Nitrogen 15 Creatinine 0.58 Glucose 184 Calcium 10.5 Protein, Total 7.4 Albumin 4.3 Bilirubin, Total 0.6 Alkaline Phosphatase 79 Aspartate Aminotransferase 32 Alanine Aminotransferase 51 Prothrombin Time 10.7 International Normalization Ratio 1.0 10/17/2017 Historical Provider MD CATRACHITA RICH documented in this encounter Visit Diagnoses Not on filedocumented in this encounter Care Teams Pharmacy Scheduler Relationship Specialty Start Date End Date Salome Mcarthur APRN [address] [place] [address] PCP - General Family Medicine 05/30/15 documented as of this encounter
--- OUTSIDE RECORDS SUMMARY | 2023-12-02 18:36 | XMS_ITS | Encounter Summary ---
Author Organization [facility] Address [facility] [place] [address] Care Team Providers Care [employer] Medical Sergeant Name Role Phone Salome Mcarthur APRN Primary Care Provider [phone] Encounter Details Date Type Department Care Team (Latest Contact Info) Description 08/22/2017 9:14 AM EDT - 08/22/2017 11:59 PM EDT Hospital [place] [phone] Molly Wallis MOBILE UNIT ASSISTANT [facility] [place] [address] NAFLD (nonalcoholic fatty liver disease) Discharge Disposition: [...] by mouth. 02/24/2009 fluticasone (FLONASE) 50 mcg/actuation [place], Suspension 1 spray by Each Nare route [...] 02/06/2024 11:30 AM EDT [place] [phone] Molly Wallis APRN [facility] [place] [address] 02/06/2024 12:15 PM EDT Laboratory Appointment Lab [address] [place] [phone] 02/06/2024 1:30 PM EDT Office [place] [address] Molly Wallis APRN [facility] [place] [address] documented as of this encounter Procedures Procedure Name Priority Date/Time Associated Diagnosis Comments US ABDOMEN COMPLETE Routine 08/22/2017 9 :54 AM EDT NAFLD (nonalcoholic fatty liver disease) documented in this encounter Results * (ABNORMAL) US Abdomen Complete (08/22/2017 9:54 [...] 12:24 pm) PATIENT INFO: ID #: ? [id number] ?: ??[birth year] (77 yrs) Name: ? MILKA MENDIETA ?Visit Date: 08/22/2017 09:52 am PERFORMED BY: Performed By: ? Mary HI, ??Lis Attending: ?Jaja GALLO, Sumi Kang Resident: ? Aryan GALLO, Estephanie Nolen Referred By: ?MOLLY WALLIS Secondary Phy.: ?? MOLLY WALLIS MOBILE UNIT ASSISTANT Location: ? [place] SERVICE(S) PROVIDED: ??[facility] - Abdominal Complete Survey - [id number] INDICATIONS: ??Cirrhosis, survey for hepatoma COMPARISON: RUQ [...] the abdomen. Resulting Agency Comment Unexpected Finding Molly Wallis [facility] ORDERAB LES documented in this encounter Visit Diagnoses Diagnosis NAFLD (nonalcoholic fatty liver disease) Other chronic nonalcoholic liver disease documented in this encounter Care Teams [employer] Medical Sergeant Relationship Specialty Start Date End Date Salome Mcarthur APRN [address] [place] [address] PCP - General Family Medicine 05/30/15 documented as of this encounter
--- OUTSIDE RECORDS SUMMARY | 2023-12-02 18:36 | XMS_ITS | Encounter Summary ---
Author Organization [facility] Address [facility] [place] [address] Care Team Providers Care Oil Spreader Operator Name Role Phone Salome Mcarthur APRN Primary Care Provider [phone] Reason for Visit * Reason Onset Date Comments Prior Authorization 02/27/2017 Encounter Details Date Type Department Care Team (Late st Contact Info) Description 02/27/2017 [place] [phone] Malika Cantrell RN Prior Authorization Social History Tobacco Use Types Packs/Day Years [...] encounter Miscellaneous Notes * Telephone Encounter - Malika Cantrell RN - 03/01/2017 9:35 AM EST Received approval for period of 02/27/17 through 08/27/17. Approval faxed to patient's pharmacy. * Telephone Encounter - Malika Cantrell RN - 02/27/2017 4:42 PM EST Prior authorization submitted to [facility] via [id number] for Xifaxan 550 mg BID for diagnosis of hepatic encelopathy Pharmacy [facility] Decision pending documented in this encounter Plan of Treatment Upcoming Encounters Date Type Department Care Team (Late st Contact Info) Description 02/06/2024 11:30 AM EDT [place] [address] Molly Cui APRN [facility] [place] [address] 02/06/2024 12:15 PM EDT Laboratory Appointment Lab [address] [place] [phone] 02/06/2024 1:30 PM EDT Office [place] [phone] Molly Cui, RESIN REMOVER [facility] [place] [address] documented as of this encounter Visit Diagnoses Not on filedocumented in this encounter Care Teams Oil Spreader Operator Relationship Specialty Start Date End Date Salome Mcarthur APRN [address] [place] [address] PCP - General Family Medicine 05/30/15 documented as of this encounter
--- OUTSIDE RECORDS SUMMARY | 2023-12-02 18:36 | XMS_ITS | Encounter Summary ---
Author Organization [facility] Address [facility] [place] [address] Care Team Providers Care Stroke Belt Sander Operator Name Role Phone Salome Mcarthur APRN Primary Care Provider [phone] Encounter Details Date Type Department Care Team (Late st Contact Info) Description 10/07/2017 Telephone [place] [address] Evy Howard Social History Tobacco Use Types [...] encounter Miscellaneous Notes * Telephone Encounter - Evy Petit - 10/07/2017 9:54 AM EDT Call to patient to schedule Chest CT as ordered by Molly Cui APRN. Patient would like this kavin done at her local hospital. I have faxed order to [facility] and have asked them to call her to schedule. documented in this encounter Plan of Treatment Upcoming Encounters Date Type Department Care Team (Late st Contact Info) Description 02/06/2024 11:30 AM EDT Appointment [place] [phone] Molly Cui APRN [facility] [place] [address] 02/06/2024 12:15 PM EDT Laboratory Appointment Lab [address] [place] [phone] 02/06/2024 1:30 PM EDT Office Visit [place] [phone] Molly Cui APRN [facility] [place] [address] documented as of this encounter Visit Diagnoses Not on filedocumented in this encounter Care Teams Stroke Belt Sander Operator Relationship Specialty Start Date End Date Salome Mcarthur APRN [address] [place] [address] PCP - General Family Medicine 05/30/15 documented as of this encounter
--- OUTSIDE RECORDS SUMMARY | 2023-12-02 18:36 | XMS_ITS | Encounter Summary ---
Author Organization [facility] Address [facility] [place] [address] Care Team Providers Care Train Operations Manager Name Role Phone Salome Mcarthur APRN Primary Care Provider [phone] Reason for Visit * Reason Onset Date Comments Other 05/30/2018 Encounter Details Date Type Department Care Team (Late st Contact Info) Description 05/30/2018 Telephone [place] [phone] Nelsy Menezes Other Social History Tobacco Use Types Packs/Day Years [...] Telephone Encounter - Malika Cantrell RN - 05/30/2018 12:44 PM EST Returned call to patient who has questions about charges associates with her [facility]. Providedpatient with phone number for MRI to discuss with their department directly as she has already discussed with billing. * Telephone Encounter - Nelsy Menezes - 05/30/2018 11:44 AM EST Caller: Patient Call for: Nurse Reason for call: Patient called and said she received a bill for a medication. She is wondering if we are the ones who prescribed her the medication? She said she does not know the name of the medication and would like a call back from Molly's nurse. Call back urgency: Routine Ok to leave detailed message? Yes Preferred method of communication: [phone] documented in this encounter Plan of Treatment Upcoming Encounters Date Type Department Care Team (Late st Contact Info) Description 02/06/2024 11:30 AM EDT [place] [phone] Molly Cui, [facility] [place] [address] 02/06/2024 12:15 PM EDT Laboratory Appointment Lab [address] [phone] 02/06/2024 1:30 PM EDT Office [place] [phone] Molly Cui, [facility] [place] [place] [address] documented as of this encounter Visit Diagnoses Not on filedocumented in this encounter Care Teams Train Operations Manager Relationship Specialty Start Date End Date Salome Mcarthur APRN [address] [place] [address] PCP - General Family Medicine 05/30/15 documented as of this encounter
--- OUTSIDE RECORDS SUMMARY | 2023-12-02 18:36 | XMS_ITS | Encounter Summary ---
Author Organization [facility] Address [facility] [place] [address] Care Team Providers Care Cloth Folder Hand Name Role Phone Salome Mcarthur APRN Primary Care Provider [phone] Encounter Details Date Type Department Care Team (Latest Contact Info) Description 08/21/2016 10:30 AM EDT - 08/21/2016 11:59 PM EDT Hospital Encounter [place] [phone] Beti Hudson MD [facility] [place] [address] NAFLD (nonalcoholic fatty liver disease) Discharge Disposition: [...] 100 mg capsule Take by mouth. 02/24/2009 cinnamon bark 500 mg Capsule Take by mouth. 09/23/2019 red yeast rice 600 mg Tab Take 600 mg by mouth 2 times daily. 08/08/2023 documented as of this encounter Plan of Treatment Upcoming Encounters Date Type Department Care Team (Late st Contact Info) Description 02/06/2024 11:30 AM EDT Appointment [place] [phone] Molly Wallis TAR ROOFER [facility] [place] [address] 02/06/2024 12:15 PM EDT Laboratory Appointment Lab [address] [place] [phone] 02/06/2024 1:30 PM EDT Office Visit [place] [phone] Molly Wallis, TAR ROOFER [facility] [place] [address] documented as of this encounter Procedures Procedure Name Priority Date/Time Associated Diagnosis Comments US ABDOMEN COMPLETE WITH VASCULAR Routine 08/21/2016 11:56 AM EDT NAFLD (nonalcoholic fatty liver disease) documented in this encounter Results * US Abdomen Complete With Vascular (08/21/2016 11:56 AM EDT) Anatomical Region Laterality Modality Abdomen Ultrasound 08/21/2016 11:2 1 AM EDT Impressions 08/21/2016 12:13 PM EDT ??Ultrasound Dictation: 1. The hepatic parenchyma is echogenic [...] of the hepatic artery. Details as above. ? Dinh Cowan MD Electronically Signed Final Report ?? 08/21/2016 12:13 pm Narrative 08/21/2016 12:13 PM EDT Abdominal Duplex ? (Signed Final 08/21/2016 12:13 pm) PATIENT INFO: ID #: ? [id number] ? : [birth year] (76 yrs) Name: ? MILKA Yue MENDIETA ? Visit Date:08/21/2016 11:21 am PERFORMED BY: Performed By: ? Aysha Forde RDMS Attending: ?Chapo GALLO, Dinh Butler Referred By: ?BETI HUDSON MD Secondary Phy.: ?? MOLLY WALLIS APRN Location: ? [place] SERVICE(S) PROVIDED: ??UABDCVASC - Abdominal Complete Survey with Vascular - 05110, [id number] ??[id number] INDICATIONS: ??Cirrhosis: survey for hepatocellular carcinoma, ??evaluate for complications of portal hypertension ??including portal vein thrombosis COMPARISON: US: 02/15/16; 07/22/15 ------ LIVER: ------ Right Lobe Length: ?? 23.2 ?? cm Echogenicity/Echotexture: ?? Coarse echogenic parenchyma with slight ? capsular nodularity. GALLBLADDER: Comment: ?Surgically removed BILIARY TRACT: Intrahepatic Ducts: ?? Normal Extrahepatic Ducts: ?? Normal Common Duct Size: ? 4.0 ? mm --------- PANCREAS: --------- Head: ? Limited visualization due to overlying bowel Tail: ? Poorly visualized due to overlying bowel Body: ? Normal ------- SPLEEN: ------- Size (cm) ? L: 13.3 ?AP: ??5.5 ? TV: ??5.2 Vol (ml): ?199.2 Comment: ?Mild splenomegaly. Huy 1.8 cm. RIGHT KIDNEY: Size (cm) ? L: 10.8 Cortical Thickness: ?Normal Cortical Echogenicity: ?? Normal Hydronephrosis: ?No sonographic evidence LEFT KIDNEY: Size (cm) ? L: 10.1 Cortical Thickness: ?Normal Cortical Echogenicity: ?? Normal Hydronephrosis: ?No sonographic evidence ------ AORTA: ------ Measurements (cm): Proximal ?AP: ??2.2 Mid ? AP: ??1.5 Distal ?AP: ??1.6 Comment: ?Normal in caliber where visualized. ---- IVC: ---- Proximal portion, normal in caliber HEPATIC-PORTAL DUPLEX: ? PSV ? EDV ? RI ??Waveform ? (cm/s) ??(cm/s) Hepatic Artery: ?? 70.7 ?12.3 ? 0.8 ??Patent Right Hepatic ? Patent Vein: Middle Hepatic ?Patent Vein: Left Hepatic ?Patent Vein: Main Portal ? 31.6 ?Patent Vein: Right Portal ?Patent Vein: Left Portal Vein: ? Patent ?Direction of Flow Main Portal ?Hepatopetal Vein: Collaterals: ??None visualized Procedure Note Dinh Cowan MD - 08/21/2016 Abdominal Duplex (Signed Final 08/21/2016 12:13pm) PATIENT INFO: ID #: [id number] : [birth year] (76 yrs) Name: MILKA MENDIETA Visit Date:08/21/2016 11:21 am PERFORMED BY: Performed By: Aysha Forde RDMS Attending: Dinh Cowan MD Referred By: BETI HUDSON MD Secondary Phy.: MOLLY WALLIS APRN Location: [place] SERVICE(S) PROVIDED: UABDCVASC - Abdominal Complete Survey with Vascular - 11860, 23414 [id number] INDICATIONS: Cirrhosis: survey for hepatocellular carcinoma, evaluate for complications of portal hypertension including portal vein thrombosis COMPARISON: US: 02/15/16; 4/15/16 ------ LIVER: ------ Right Lobe Length: 23.2 cm Echogenicity/Echotexture: Coarse echogenic parenchyma with slight capsular nodularity. GALLBLADDER: Comment: Surgically removed BILIARY TRACT: Intrahepatic Ducts: Normal Extrahepatic Ducts: Normal Common Duct Size: 4.0 mm --------- PANCREAS: --------- Head: Limited visualization due to overlying bowel Tail: Poorly visualized due to overlying bowel Body: Normal ------- SPLEEN: ------- Size (cm) L: 13.3 AP: 5.5 TV: 5.2 Vol (ml): 199.2 Comment: Mild splenomegaly. Spenule 1.8 cm. RIGHT KIDNEY: Size (cm) L: 10.8 Cortical Thickness: Normal Cortical Echogenicity: Normal Hydronephrosis: No sonographic evidence LEFT KIDNEY: Size (cm) L: 10.1 Cortical Thickness: Normal Cortical Echogenicity: Normal Hydronephrosis: No sonographic evidence ------ AORTA: ------ Measurements (cm): Proximal AP: 2.2 Mid AP: 1.5 Distal AP: 1.6 Comment: Normal in caliber where visualized. ---- IVC: ---- Proximal portion, normal in caliber HEPATIC-PORTAL DUPLEX: PSV EDV RI Waveform (cm/s) (cm/s) Hepatic Artery: 70.7 12.3 0.8 Patent Right Hepatic Patent Vein: Middle Hepatic Patent Vein: Left Hepatic Patent Vein: Main Portal 31.6 Patent Vein: Right Portal Patent Vein: Left Portal Vein: Patent Direction of Flow Main Portal Hepatopetal Vein: Collaterals: None visualized IMPRESSION Ultrasound Dictation: 1. The hepatic parenchyma is [...] artery. Details as above. Dinh Cowan MD Electronically Signed Final Report 08/21/2016 12:13 pm Beti Hudson MD IMG US GEN ORDERABLE S documented in this encounter Visit Diagnoses Diagnosis NAFLD (nonalcoholic fatty liver disease) Other chronic nonalcoholic liver disease documented in this encounter Care Teams Cloth Folder Hand Relationship Specialty Start Date End Date Salome Mcarthur, TAR ROOFER [address] [place] [address] PCP - General Family Medicine 05/30/15 documented as of this encounter
--- OUTSIDE RECORDS SUMMARY | 2023-12-02 18:36 | XMS_ITS | Encounter Summary ---
Author Organization [facility] Address [facility] [place] [address] Care Team Providers Care Director Of Individual Giving Name Role Phone Salome Mcarthur APRN Primary Care Provider [phone] Encounter Details Date Type Department Care Team (Late st Contact Info) Description 10/24/2017 Telephone [place] [phone] Molly Wallis APRN [facility] [place] [address] Social History Tobacco Use Types Packs/Day Years [...] Telephone Encounter - Molly Wallis APRN - 10/24/2017 10:46 AM EDT Called patient to review CT Chest which shows a 1.4x2cm nodule in the lung which could be a benign hamartoma, but malignancy cannot be excluded. Radiology recommend PET scan. Would like to have PCP or pulmonology follow up. Spoke with patient. Spoke with a nurse at patient's PCP office (see below) and they will follow up on CT results. MOLLY WALLIS APRN PCP: Salome Mcarthur APRN [phone] documented in this encounter Plan of Treatment Upcoming Encounters Date Type Department Care Team (Late st Contact Info) Description 02/06/2024 11:30 AM EDT Appointment [place] [phone] Molly Wallis APRN [facility] [place] [address] 02/06/2024 12:15 PM EDT Laboratory Appointment Lab [address] [place] [phone] 02/06/2024 1:30 PM EDT Office [place] [phone] Molly Wallis DIE SETTER [facility] [place] [address] documented as of this encounter Results * AFP tumor marker (02/26/2018 10:02 AM EST) Alpha Fetoprotein 4.3 <=8.3 ng/mL [facility] Blood specimen (specimen) 02/26/2018 10:02 AM EST 02/26/2018 10:15 AM EST Narrative Resulting Agency Comment Spec In Lab Molly Wallis APRN CHEMISTRY ORDERABL ES [facility] [place] [address] * Prothrombin Time (02/26/2018 10:02 AM EST) Prothrombin Time 11.9 9.4 - 12.5 sec [facility] International Normalization Ratio 1.1 [facility] Comment: An INR <2.0 [...] Agency Comment Spec In Lab Molly Wallis LORETO HEMATOLOGY ORDERAB LES [facility] [place] [address] * (ABNORMAL) Comprehensive metabolic panel (non-fasting) (02/26/2018 10:02 AM EST) Glucose 137 65 - 199 mg/dL [facility] Comment:Diabetes: >=200 mg/d L plus symptoms Blood Urea Nitrogen 20(H) 8 - 18 mg/dL [facility] Creatinine 0.64(L) 0.70 - 1.20 mg/dL [facility] Sodium 141 135 - 145 mmol/L [facility] Potassium 4.3 3.5 - 5.0 mmol/L [facility] Comment: Please note: ??Patients with WBC >100,000 may have falsely elevated Potassium levels. ??For accurate Potassium quantification in these patients send serum separator tube (gold top) for subsequent determinations. ??Contact the Clinical Chemistry Laboratory if there are any questions. Chloride 101 98 - 107 mmol/L [facility] Carbon Dioxide 24 22 - 31 mmol/L [facility] Anion Gap 16(H) 5 - 15 mmol/L [facility] Calcium 10.0 8.5 - 10.5 mg/dL [facility] Protein, Total 7.7 6.1 - 8.0 gm/dL [facility] Albumin 4.5 3.2 - 5.2 gm/dL [facility] Aspartate Aminotransferase 24 0 - 30 unit/L [facility] Alanine Aminotransferase 28 0 - 30 unit/L [facility] Alkaline Phosphatase 81 40 - 104 unit/L [facility] Bilirubin, Total 0.4 0.2 - 1.3 mg/dL [facility] Est Glomerular Filtration Rate 87 >=60 mL/min/1. 73 m?? [facility] Comment: The eGFR was calculated using the CKD-EPI equation. As with all creatinine based estimates of kidney function, eGFR values calculated with the CKD-EPI equation are not accurate in patients with acute kidney failure, extremes of body mass or the acutely ill. [email or web address] eGFR 100 >=60 mL/min/1. 73 m?? [facility] Comment: The eGFR was calculated using the CKD-EPI equation. As with all creatinine based estimates of kidney function, eGFR values calculated with the CKD-EPI equation are not accurate in patients with acute kidney failure, extremes of body mass or the acutely ill. [email or web address] Blood specimen (specimen) 02/26/2018 10:02 AM EST 02/26/2018 10:15 AM EST Narrative Resulting Agency Comment Spec In Lab Molly Wallis APRN CHEMISTRY ORDERABL ES [facility] [place] [address] * US Abdomen Limited (02/26/2018 9:27 AM [...] 10:11 am) PATIENT INFO: ID #: ? [id number] ?: ??[birth year] (77 yrs) Name: ? MILKA MENDIETA ?Visit Date: 02/26/2018 09:24 am PERFORMED BY: Performed By: ? Gabi Mtz RDMS Attending: ?Lily GALLO, Jean Claude Bianchi. Referred By: ?MOLLY WALLIS Location: ? [place] SERVICE(S) PROVIDED: ??UABDLIM - Abdominal Limited Survey Single ? 80569 ??Organ or Quadrant - [id number] INDICATIONS: ??Compensated cirrhosis, assess for HCC COMPARISON: [...] 02/26/2018 10:11 am) PATIENT INFO: ID #: [id number] : 42 (77 yrs) Name: MILKA MENDIETA Visit Date: 02/26/2018 09:24 am PERFORMED BY: Performed By: Gabi Mtz RDMS Attending: Jean Claude Bautista MD Referred By: MOLLY WALLIS Location: [place] SERVICE(S) PROVIDED: UABDLIM - Abdominal Limited Survey Single 63812 Organ or Quadrant - [id number] INDICATIONS: Compensated cirrhosis, assess for HCC COMPARISON: [...] Jean Claude Bautista at 02/26/2018 10:04 AM Jean Claude Bautista MD Electronically Signed Final Report 02/26/2018 10:11 am Molly Wallis APRN IMG US GEN ORDERAB LES documented in this encounter Visit Diagnoses Diagnosis Hepatic cirrhosis, unspecified hepatic cirrhosis type, unspecified whether ascites present Hepatic cirrhosis, unspecified hepatic cirrhosis type, unspecified whether ascites present documented in this encounter Care Teams Director Of Individual Giving Relationship Specialty Start Date End Date Salome Mcarthur, DIE SETTER [address] [place] [address] PCP - General Family Medicine 05/30/15 documented as of this encounter
--- OUTSIDE RECORDS SUMMARY | 2023-12-02 18:36 | XMS_ITS | Encounter Summary ---
Author Organization [facility] Address [facility] [place] [address] Care Team Providers Care Roofer Vinyl Coating Name Role Phone Salome Mcarthur APRN Primary Care Provider [phone] Reason for Visit * Reason Onset Date Comments Results 03/13/2018 Encounter Details Date Type Department Care Team (Late st Contact Info) Description 03/13/2018 Telephone [place] [phone] Jacque Gale, RN Results Social History Tobacco [...] encounter Miscellaneous Notes * Telephone Encounter - Jacque Gale RN - 03/13/2018 12:29 PM EST Spoke with patient. She is relieved to hear no sign of HCC in the liver. Will d/w provider whether request for comparison to prior imaging will be made related to redemonstration of known left lower lobe pulmonary nodule; size comparison cannot be made given differences in technique. Recommend reference to prior CT report for management guidelines. * Telephone Encounter - Jacque Gale RN - 03/13/2018 12:26 PM EST ----- Message from Molly Cui APRN sent at 03/13/2018 10:35 AM EST ----- Regarding: FW: Pt Calling for MRI Results Please Can you call her about her MRI results? I can talk to her this afternoon as well. No concerning lesions is the main message. Unable to see pulmonary lesion Benita To ----- Message ----- From: Bel Castellanos Sent: 03/13/2018 9:57 AM To: Molly Cui APRN Subject: Pt Calling for MRI Results Please Pt calling for second time in two days; would you please call? Pt will be home. Carrie To documented in this encounter Plan of Treatment Upcoming Encounters Date Type Department Care Team (Late st Contact Info) Description 02/06/2024 11:30 AM EDT [place] [address] Molly Cui GENERAL UTILITY WORKER [facility] [place] [address] 02/06/2024 12:15 PM EDT Laboratory Appointment Lab [address] [phone] 02/06/2024 1:30 PM EDT Office [place] [address] Molly Cui GENERAL UTILITY WORKER [facility] [place] [address] documented as of this encounter Visit Diagnoses Not on filedocumented in this encounter Care Teams Roofer Vinyl Coating Relationship Specialty Start Date End Date Salome Mcarthur APRN [address] [place] [address] PCP - General Family Medicine 05/30/15 documented as of this encounter
--- OUTSIDE RECORDS SUMMARY | 2023-12-02 18:36 | XMS_ITS | Encounter Summary ---
Author Organization [facility] [address] Care Team Providers Care Produce Inspector Name Role Phone Salome Mcarthur APRN Primary Care Provider [phone] Reason for Referral * Diagnostic Test (Routine) - Closed Specialty Diagnoses / Procedures Referred By Contruth bermudez Referred To Contact Radiology Diagnoses NAFLD (nonalcoholic fatty liver disease) Procedures MRI Abdomen wwo Contrast (Generic) Molly Cui APRN [facility] [place] [address] [place] [address] Referral ID Status Reason Start Date Expiration Date V isits Requested Visits Authorized [id number] Closed Specialty Service Requested 08/22/2017 08/22/2018 1 1 Reason for Visit * Reason Comments Follow-up Patient is here for a follow up labs. Encounter Details Date Type Department Care Team (Late st Contact Info) Description 08/22/2017 11:30 AM EDT Office Visit [place] [phone] Molly Cui HELP DESK COORDINATOR [facility] [place] [address] NAFLD (nonalcoholic fatty liver disease) Social History [...] Sign Reading Time Taken Comments Blood Pressure 125/56 08/22/2017 11:50 AM EDT Pulse 98 08/22/2017 11:50 AM EDT Temperature - - Respiratory Rate - - Oxygen Saturation 97% 08/22/2017 11:50 AM EDT Inhaled Oxygen Concentration - - Weight 65.4 kg (144 lb 3.2 oz) 08/22/2017 11:50 AM EDT Height 156.2 cm (5' 1.5) 08/22/2017 11:50 AM ED T Body Mass Index 26.81 08/22/2017 11:50 AM EDT documented in this encounter Progress Notes * Molly Cui APRN - 08/22/2017 11:30 AM EDT Hepatology Follow Up Note Patient: Milka Corbett Gender: female : 1940 Provider: Molly Cui NP Referring Physician: Salome Mcarthur APRN HISTORY OF PRESENT ILLNESS Milka Corbett is a 77 y.o. year old female With BA Cirrhosis who returns today for follow up. She feels like she is dizzy often. She will be walking and feel like she can't walk in a straight line. Doesn't feel like the room is spinning, although she has had this in the past which resolved with PT. The dizziness has been occurring for the past 6 months. Has been the same for the past 6 months. Has fallen when she went to the bathroom. She bent over to sit on the toilet and then fell forward. This happened in the middle of the night. She has problems with her memory. She will be forgetting words. We discussed Rifaxamin at our last visit, and she took 9 days of samples but did not notice a difference and then could not afford the medicaion. She takes Klonapin for restless leg. She takes Benadryl twice a day for allergies. If she doesn't take Benadry, she gets sneezes. She continues to have diarrhea. She only take 500mg Metformin. Her blood sugars have been around 200. She has follow up scheduled with her PCP to review her blood sugars. Denies ascites, melena. PAST MEDICAL/SURGICAL HISTORY 1. 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 Fibroscan 06/28/15: 28.4 kPa; 6% IQR; 100% success rate, F4 ?? Risk factors: diabetes, hyperlipidemia, HTN, overweight. Strong family hx of BA cirrhosis. ?? Ultrasound 07/22/2015: no lesions ?? EGD 07/14/2015: no varices, gastric ulcers (2). 2 Diabetes 3. Hypertension 4. Elevated cholesterol MEDICATIONS Outpatient Prescriptions Marked as Taking for the 08/22/17 encounter (Office Visit) with Molly Cui APRN Medication Sig Dispense Refill ??? diphenhydrAMINE (BENADRYL) 25 mg Capsule Take [...] mouth every 4 hours as needed. ??? [place]-3 Fatty Acids-Vitamin E (FISH OIL) 1,000 mg Cap Take 3,000 mg by mouth daily. ??? multivitamin (THERAGRAN) tablet Take 1 tablet by mouth daily. ??? amitriptyline (ELAVIL) 50 mg tablet Take 50 mg by mouth nightly. Current Facility-Administered Medications for the 08/22/17 encounter (Office Visit) with Molly Cui APRN Medication Dose Route Frequency Provider Last Rate Last Dose ??? diatrizoate meglumine (HYPAQUE, CYSTOGRAFIN) urethral solution 300 mL 300 mL Urethral Once PRN Nuzhat Beltránbeth Apoorva, MD ALLERGIES Allergies Allergen Reactions ??? Codeine [...] 29 of acute hepatitis PHYSICAL EXAM Vitals: 08/22/17 1150 BP: 125/56 BP Location (NBP): Right arm Patient Position: Sitting BP Cuff Sizes: Adult (25-34 cm) Pulse: 98 SpO2: 97% Weight: 65.4 kg (144 lb 3.2 oz) Height: 156.2 cm (5' 1.5) Body mass index is 26.81 kg/(m^2). Gen: Well appearing, no apparent distress. Skin: no spider angiomata, no palmar erythema, no jaundice. HEENT: Sclerae anicteric, pupils equal, round, react to light. Pharynx unremarkable. Neck is supple, no adenopathy, no thyromegaly. Extremities: No edema. Neuro: alert and oriented x3, no asterixis or tremor. Lab Results Component Value Date WBC 5.6 08/22/2017 HGB 14.0 08/22/2017 HCT 40.5 08/22/2017 MCV 91.6 08/22/2017 PLATELET 118 (L) 08/22/2017 Recent Labs 08/22/17 1025 INR 1.0 Chemistry Component Value Date/Time NA 141 08/22/2017 1025 K 4.3 08/22/2017 1025 CL 99 08/22/2017 1025 CO2 28 08/22/2017 1025 BUN 14 08/22/2017 1025 CREATININE 0.57 (L) 08/22/2017 1025 Component Value Date/Time CALCIUM 10.3 08/22/2017 1025 ALKPHOS 72 08/22/2017 1025 AST 30 08/22/2017 1025 ALT 32 (H) 08/22/2017 1025 BILITOT 0.5 08/22/2017 1025 Ultrasound 08/22/17: IMPRESSION 1. New indeterminate ill-defined 2 cm avascular hypoechoic lesion in the lefthepatic lobe. Hepatocellular carcinoma cannot be excluded. Recommend MRI forfurther characterization. UNEXPECTED FINDING.2. Persistent hepatomegaly with echogenic, coarse liver parenchyma and capsularnodularity, consistent with a combination cirrhosis and steatosis.3. No ascites.4. Mild splenomegaly, stable as compared to the August 2016 ultrasound.I have personally reviewed the image(s) and the residents interpretation andagree with the findings, Sumi Wilkinson at 08/22/2017 12:17 PM ASSESSMENT/PLAN Milka Corbett is a 77 y.o. 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 Her metabolic risks include diabetes, hypertension, elevated cholesterol, overweight. In addition she has a strong family history of cirrhosis, likely due to BA. 1. Cirrhosis. Diagnosed by fibroscan. Well compensated. MELD 6, which is normal. 2. BA. Discussed the importance of keeping her blood sugar in target range for treatment of her BA as well as her Diabetes. Encourage f/u with PCP for diabetes management. May benefit from additional anti-hyperglycemic agent. 3. Portal hypertension. EDG done 07/14/15 shows no varices, plan to repeat in 2-3 years. 4. HCC surveillance. Ultrasound results returned after the end of the patient visit and show an ill-defined lesion in the left lobe of the liver. Plan to evaluate further with MRI. Called patient to discuss and left message to call back. 5. Hepatic encephalopathy. Her symptoms of difficulty word finding and dizziness may be related to hepatic encephalopathy. She is also taking medications that could increase confusion, especially in older adults, mainly Klonapin and Benadryl. She states she woul dnot be able to sleep without Clonopin for her restless leg, so plan to first stop Benadryl. Discussed Claritin or Jessica, saline nasalspray, and flonase for her allergies. If symptoms of trouble word finding and dizziness do not improve after stopping Benadyl for 2-4 weeks, advised patient to call. May try finding substitute for Klonapin with PCP for restless leg syndrome or trial of Neomycin for HE. Would not recommend Lactulose due to her existing diarrhea. Plan: - stop Benadryl - Can try Claritin or Jessica for allergies - Flonase as needed for allergies. - Saline nasal spray for allergies. - If symptoms of dizziness and brain fog do not improve after 2-4 weeks of stopping Benadryl, advised patient to call. May try to stop Klonapin (or speak with PCP regarding alternati - MRI next available to further evaluate question of liver lesion seen on US. - Follow up in 6 months with labs and US, or sooner depending on the results of above testing. Molly Cui APRN Section of Gastroenterology [place] [address] Copy: Salome Mcarthur APRN [address] [facility] [place] [address] 25 of this 30 minute visit in face to face discussion regarding disease, prognosis and treatment documented in this encounter Plan of Treatment Upcoming Encounters Date Type Department Care Team (Late st Contact Info) Description 02/06/2024 11:30 AM EDT Appointment [place] [phone] Molly Cui APRN [facility] [place] [address] 02/06/2024 12:15 PM EDT Laboratory Appointment Lab [address] [place] [phone] 02/06/2024 1:30 PM EDT Office Visit [place] [phone] Molly Cui APRN [facility] [place] [address] Scheduled Orders Name Type Priority Associated Diagnoses Orde r Schedule CBC (with Diff) Lab Routine NAFLD (nonalcoholic fatty liver disease) Expected: 02/18/2018, Expires: 08/22/2018 Comprehensive metabolic panel (non-fasting) Lab Routine NAFLD (nonalcoholic fatty liver disease) Expected: 02/18/2018, Expires: 08/22/2018 AFP tumor marker Lab Routine NAFLD (nonalcoholic fatty liver disease) Expected: 02/18/2018, Expires: 08/22/2018 Prothrombin Time Lab Routine NAFLD (nonalcoholic fatty liver disease) Expected: 02/18/2018, Expires: 08/22/2018 documented as of this encounter Results * (ABNORMAL) MRI Abdomen [...] Resulting Agency Comment Unexpected Finding Molly Cui HELP DESK COORDINATOR IMG MRI ORDERABLES documented in this encounter Visit Diagnoses Diagnosis NAFLD (nonalcoholic fatty liver disease) Other chronic nonalcoholic liver disease NAFLD (nonalcoholic fatty liver disease) Other chronic nonalcoholic liver disease documented in this encounter Care Teams Produce Inspector Relationship Specialty Start Date End Date Salome Mcarthur APRN [address] [place] [address] PCP - General Family Medicine 05/30/15 documented as of this encounter
--- OUTSIDE RECORDS SUMMARY | 2023-12-02 18:36 | XMS_ITS | Encounter Summary ---
Author Organization [facility] Address [facility] [place] [address] Care Team Providers Care Hris Administrator Name Role Phone Salome Mcarthur APRN Primary Care Provider [phone] Encounter Details Date Type Department Care Team (Late st Contact Info) Description 05/31/2016 External [place] [phone] [facility] [place] [address] Social History Tobacco Use Types Packs/Day Years [...] 02/06/2024 11:30 AM EDT [place] [phone] [facility] [address] 02/06/2024 12:15 PM EDT Laboratory Appointment Lab [address] [place] [phone] 02/06/2024 1:30 PM EDT Office [place] [address] Molly Cui APRN [facility] [place] [address] documented as of this encounter Procedures Procedure Name Priority Date/Time Associated Diagnosis Comments EXTERNAL LAB CBC CMP THYROID RESULTS PANEL Routine 05/11/2016 documented in this encounter Results * CBC / CMP / Thyroid External Results (05/11/2016) White Blood Cell 4.7 Red Blood Cell 4.43 Hemoglobin 13.7 Hematocrit 41.0 Mean Cell Volume 92.6 Platelet 141 Sodium 140 Potassium 4.2 Chloride 103 Carbon Dioxide 30 Blood Urea Nitrogen 21 Creatinine 1.01 Est Glomerular Filtration Rate 53.58 Glucose 172 Calcium 9.6 Protein, Total 7.1 Albumin 4.3 Bilirubin, Total 0.33 Alkaline Phosphatase 52 Aspartate Aminotransferase 31 Alanine Aminotransferase 44 Cholesterol, Total 178 mg/dL Triglyceride 232 mg/dL HDL Cholesterol 36 mg/dL LDL Cholesterol 111 mg/dL Historical Provider EXTERNAL LAB AMINA RICH documented in this encounter Visit Diagnoses Not on filedocumented in this encounter Care Teams Hris Administrator Relationship Specialty Start Date End Date Salome Mcarthur APRN [address] [place] [address] PCP - General Family Medicine 05/30/15 documented as of this encounter
--- OUTSIDE RECORDS SUMMARY | 2023-12-02 18:36 | XMS_ITS | Encounter Summary ---
Author Organization [facility] Address [facility] [place] [place] [address] Care Team Providers Care Development Representative Name Role Phone Salome Mcarthur APRN Primary Care Provider [phone] Encounter Details Date Type Department Care Team (Late st Contact Info) Description 09/23/2017 Orders Only [place] [address] Molly Wallis APRN [facility] [place] [address] Lung nodule Social History Tobacco Use Types Packs/Day Years [...] of this encounter Progress Notes * Molly Wallis APRN - 09/23/2017 11:57 AM EDT Called patient to review MRI that does not show any lesions in her liver. Incidental note of a lung nodule, plan to evaluate further with CT. Patient notes she had pneumonia recently in June. Plan to schedule CT Chest with contrast in 1-2 months, per patient preference Will ask property field adjuster to contact. MOLLY WALLIS APRN documented in this encounter Plan of Treatment Upcoming Encounters Date Type Department Care Team (Late st Contact Info) Description 02/06/2024 11:30 AM EDT Appointment [place] [address] Molly Wallis, [employer] [facility] [place] [address] 02/06/2024 12:15 PM EDT Laboratory Appointment Lab [address] [address] 02/06/2024 1:30 PM EDT Office Visit [place] [address] Molly Wallis, [employer] [facility] [place] [address] documented as of this encounter Visit Diagnoses Diagnosis Lung nodule Solitary pulmonary nodule documented in this encounter Care Teams Development Representative Relationship Specialty Start Date End Date Salome Mcarthur APRN [address] [place] [address] PCP - General Family Medicine 05/30/15 documented as of this encounter
--- OUTSIDE RECORDS SUMMARY | 2023-12-02 18:36 | XMS_ITS | Encounter Summary ---
Author Organization [facility] [place] [address] Care Team Providers Care Construction Assistant Name Role Phone Salome Mcarthur APRN Primary Care Provider [phone] Reason for Referral * Diagnostic Test (Routine) - Closed Specialty Diagnoses / Procedures Referred By Contruth t Referred To Contact Radiology Diagnoses Hepatic cirrhosis, unspecified hepatic cirrhosis type, unspecified whether ascites present Procedures MRI Abdomen wwo Contrast (Generic) Molly Cui APRN [facility] [place] [address] [place] [address] Referral ID Status Reason Start Date Expiration Date V isits Requested Visits Authorized [id number] Closed Specialty Service Requested 02/26/2018 02/26/2019 1 1 Encounter Details Date Type Department Care Team (Late st Contact Info) Description 02/26/2018 11:00 AM EST Office [place] [address] Molly Cui APRN [facility] [address] Hepatic cirrhosis, unspecified hepatic cirrhosis [...] Sign Reading Time Taken Comments Blood Pressure 114/55 02/26/2018 11:09 AM EST Pulse 92 02/26/2018 11:09 AM EST Temperature - - Respiratory Rate - - Oxygen Saturation - - Inhaled Oxygen Concentration - - Weight 66.3 kg (146 lb 3.2 oz) 02/26/2018 11:09 AM EST Height 154.9 cm (5' 1) 02/26/2018 11:09 AM EST Body Mass Index 27.62 02/26/2018 11:09 AM EST documented in this encounter Progress Notes * Molly Cui APRN - 02/26/2018 11:00 AM EST Hepatology Follow Up Note Patient: Milka Corbett Gender: female : 1940 Provider: Molly Cui NP Referring Physician: Salome Mcarthur APRN HISTORY OF PRESENT ILLNESS Milka Corbett is a 77 y.o. year old female With BA Cirrhosis who returns today for follow up. She has been having vertigo but recently had another procedure which helped resolve her vertigo. She has been getting tired easily. Has not lost any weight (has gained a few lbs). She had a nodule inher lungs seen in her last MRI, that is being followed with CT scan every 3 months. Denies any melena, blood in stools. Was having some concern about word finding at our last visit, but is feeling better about this. No changes in cognition. No palpitations, no SOB. Sometimes she gets swelling in her left foot, but it will go down with elevation. PAST MEDICAL/SURGICAL HISTORY 1. 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 Fibroscan 06/28/15: 28.4 kPa; 6% IQR; 100% success rate, F4 ?? Risk factors: diabetes, hyperlipidemia, HTN, overweight. Strong family hx of BA cirrhosis. ?? Ultrasound 07/22/2015: no lesions ?? EGD 07/14/2015: no varices, gastric ulcers (2). 2 Diabetes 3. Hypertension 4. Elevated cholesterol MEDICATIONS Outpatient Medications Marked as Taking for the 02/26/18 encounter (Office Visit) with Molly Cui APRN Medication Sig Dispense Refill ??? cinnamon [...] mouth as needed. Reported on 08/21/2016 ??? [place]-3 Fatty Acids-Vitamin E (FISH OIL) 1,000 mg Cap Take 3,000 mg by mouth daily. ??? multivitamin (THERAGRAN) tablet Take 1 tablet by mouth daily. ??? amitriptyline (ELAVIL) 50 mg tablet Take 50 mg by mouth nightly. Current Facility-Administered Medications for the 02/26/18 encounter (Office Visit) with Molly Cui APRN [...] 29 of acute hepatitis PHYSICAL EXAM Vitals: 02/26/18 1109 BP: 114/55 Pulse: 92 Weight: 66.3 kg (146 lb 3.2 oz) Height: 154.9 cm (5' 1) Body mass index is 27.62 kg/m??. Gen: Well appearing, no apparent distress. Skin: no spider angiomata, no palmar erythema, no jaundice. HEENT: Sclerae anicteric, pupils equal, round, react to light. Pharynx unremarkable. Neck is supple, no adenopathy, no thyromegaly. Extremities: No edema. Neuro: alert and oriented x3, no asterixis or tremor. Lab Results Component Value Date WBC 6.1 02/26/2018 HGB 14.1 02/26/2018 HCT 41.4 02/26/2018 MCV 92.2 02/26/2018 PLATELET 111 (L) 02/26/2018 Recent Labs 02/26/18 1002 INR 1.1 Chemistry Component Value Date/Time NA 141 02/26/2018 1002 K 4.3 02/26/2018 1002 CL 101 02/26/2018 1002 CO2 24 02/26/2018 1002 BUN 20 (H) 02/26/2018 1002 CREATININE 0.64 (L) 02/26/2018 1002 Component Value Date/Time CALCIUM 10.0 02/26/2018 1002 ALKPHOS 81 02/26/2018 1002 AST 24 02/26/2018 1002 ALT 28 02/26/2018 1002 BILITOT 0.4 02/26/2018 1002 MELD-Na score: 7 at 02/26/2018 10:02 AM MELD score: 7 at 02/26/2018 10:02 AM Calculated from: Serum Creatinine: 0.64 mg/dL (Rounded to 1 mg/dL) at 02/26/2018 10:02 AM Serum Sodium: 141 mmol/L (Rounded to 137 mmol/L) at 02/26/2018 10:02 AM Total Bilirubin: 0.4 mg/dL (Rounded to 1 mg/dL) at 02/26/2018 10:02 AM INR(ratio): 1.1 at 02/26/2018 10:02 AM Age: 77 years Ultrasound 02/26/18: 1. New indeterminant small brightly echogenic focus in the left hepatic lobe with a hypoechoic rim and a separate, small calcification medial to the left portal vein. Recommend MRI of the liver for further characterization. 2. Diffusely echogenic and enlarged liver with capsular nodularity consistent with known cirrhosis. 3. Trace amount of ascites. ASSESSMENT/PLAN Milka Corbett is a 77 y.o. 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 Her metabolic risks include diabetes, hypertension, elevated cholesterol, overweight. In addition she has a strong family history of cirrhosis, likely due to BA. 1. Cirrhosis. Diagnosed by fibroscan. Well compensated. MELD 7, which is normal. 2. BA. Have discussed importance of weight loss and glycemic control. 3. Portal hypertension. EDG done 07/14/15 shows no varices, plan to repeat in 2-3 years. 4. HCC surveillance. Ultrasound today with hypoechoic lesion seen in left liver lobe. Spoke with radiologist. WIll order MRI now for next available to evaluate further. 5. Hepatic encephalopathy. No symptoms today. Continue to monitor. 6. Lung nodule. Continue follow up with PCP, repeat CT in 2 months. Plan: - MRI next available to evaluate liver lesion. Will decide on follow up after MRI. Molly Cui APRN Section of Gastroenterology [place] [address] Copy: Salome Mcarthur APRN [address] / [place] [address] 25 of this 30 minute visit in face to face discussion regarding disease, prognosis and treatment documented in this encounter Plan of Treatment Upcoming Encounters Date Type Department Care Team (Late st Contact Info) Description 02/06/2024 11:30 AM EDT Appoint[place] [phone] Molly Cui, LOR[facility] [place] [address] 02/06/2024 12:15 PM EDT Laboratory Appointment Lab [address] [place] [address] 02/06/2024 1:30 PM EDT Office [place] [address] Molly Cui NATUROPATHIC DOCTOR [facility] [place] [address] documented as of this encounter Results * [...] demonstrate a somewhat reticular pattern of high [id number] intensity most pronounced in the inferior right [...] made given differences in technique. Recommend reference [facility] CT report for management guidelines. 4. Ectasia [...] Thisreport utilizes LI-RADS version 2017. Molly Cui NATUROPATHIC DOCTOR IMG MRI ORDERABLES documented in this encounter Visit Diagnoses Diagnosis Hepatic cirrhosis, unspecified hepatic cirrhosis type, unspecified whether ascites present Hepatic cirrhosis, unspecified hepatic cirrhosis type, unspecified whether ascites present documented in this encounter Care Teams Construction Assistant Relationship Specialty Start Date End Date Salome Mcarthur APRN [address] [place] [address] PCP - General Family Medicine 05/30/15 documented as of this encounter
--- OUTSIDE RECORDS SUMMARY | 2023-12-02 18:36 | XMS_ITS | Encounter Summary ---
Author Organization [facility] Address [facility] [place] [address] Care Team Providers Care Pipe Organ Technician Name Role Phone Salome Mcarthur APRN Primary Care Provider [phone] Reason for Visit * Reason Onset Date Comments Advice Only 09/14/2016 Encounter Details Date Type Department Care Team (Late st Contact Info) Description 09/14/2016 Telephone [place] [phone] Malika Cantrell nickel plant operator Only Social History Tobacco Use Types Packs/Day Years [...] Telephone Encounter - Malika Cantrell RN - 09/14/2016 1:47 PM EDT Spoke with patient. Discussed idea that she might ask PCP to write a general letter addressing her multiple health issues. Patient agrees with plan. * Telephone Encounter - Malika Cantrell RN - 09/14/2016 10:58 AM EDT Patient calling today; left message stating I've been selected for jury duty. Can you fax a letterstating that I have cirrhosis and can't serve on a jury? Attempted to return call to patient to explore further. documented in this encounter Plan of Treatment Upcoming Encounters Date Type Department Care Team (Late st Contact Info) Description 02/06/2024 11:30 AM EDT Appointment [place] [address] Molly Cui, [facility] [place] [address] 02/06/2024 12:15 PM EDT Laboratory Appointment Lab [address] [phone] 02/06/2024 1:30 PM EDT Office Visit [place] [phone] Molly Cui, [facility] [place] [address] documented as of this encounter Visit Diagnoses Not on filedocumented in this encounter Care Teams Pipe Organ Technician Relationship Specialty Start Date End Date Salome Mcarthur APRN [address] [place] [address] PCP - General Family Medicine 05/30/15 documented as of this encounter
--- OUTSIDE RECORDS SUMMARY | 2023-12-02 18:37 | XMS_ITS | Encounter Summary ---
Author Organization [facility] Address [address] [place] [address] Care Team Providers Care Sweatband Shaper Name Role Phone Salome Mcarthur MEMORIAL COUNSELOR Primary Care Provider [phone] Reason for Visit * Reason Comments Oral Pain Encounter Details Date Type Department Care Team (Late st Contact Info) Description 08/04/2023 15:30 EDT Walk-In [address] [id number] Tristan Santa, JEIMY [address] [facility] [address] [place] [address] Thrush, oral (Primary Dx) Social History Tobacco Use Types Packs/Day Years Used Date Smoking Tobacco: Never Smokeless Tobacco: Never Alcohol Use Standard Drinks/Week Comments No 0 (1 standard drink = 0.6 oz pur e alcohol) Interpersonal Safety Answer Date Record ed Physically Hurt Never 11/08/2019 Verbally Threaten Not on file 11/08/2019 Sex and Gender Information Value Date Recorded Sex Assigned at Not on file Gender Identity Female 02/14/2022 14:15 EST Sexual Orientation Not on file documented as of this encounter Last Filed Vital Signs Vital Sign Reading Time Taken Comments Blood Pressure 133/60 08/04/2023 1528 EDT Pulse 89 08/04/2023 1528 EDT Temperature 36.7 ??C (98.1 ??F) 08/04/2023 1528 EDT Respiratory Rate 16 08/04/2023 1528 EDT Oxygen Saturation 96% 08/04/2023 1528 EDT Inhaled Oxygen Concentration - - Weight - - Height - - Body Mass Index - - documented in this encounter Functional Status Cognitive Status Response Date of Assessm ent Because of a physical, menta l, or emotional condition, do you have serious difficulty concentrating, remembering, or making decisions? (5 years old or older) Yes 08/21/2011 documented as of this encounter Patient Instructions * Patient Instructions* Tristan Santa NP - 08/04/2023 15:30 EDT Oral thrush prescribed nystatin swish per your request for it working for you in the past. I did send it to [facility] so if they do not have it they can call and we can order else where or send in a different script. Follow-up with dentist related to ill fitting partials as you do have some irritated mucosa lining your lower partial on the left side. * Attachments The following attachments cannot be sent through Care Everywhere. * Candidiasis (Mohawk) documented in this encounter Ordered Prescriptions Prescription Sig Dispensed Refills Start Date End Da te nystatin (MYCOSTATIN) 100,000 unit/mL suspension Take 5 mL by mouth 4 times daily for 7 days. 140 mL 08/04/2023 08/11/2023 documented in this encounter Progress Notes * Geraldine Harp, TRISHA - 08/04/2023 1530 EDT CC/HPI: burning in mouth & on tongue, has crack to R side of mouth. Started 3-4d ago. Had yeastinfections in mouth in past & states it feels similar. Nystatin has helped in the past. Blood sugars have been over 200 recently, but is eating less carbs & was 81. Covid Screening: In the last 72 hours, has the patient had: New or unusual cough, shortness of breath, new nasal congestion, sore throat, fever, chills, body aches, or new loss of taste or smell without a reasonable alternative diagnosis*? (If yes, assign to ARC)- no In the past 10 days, has the patient had a positive Covid test OR a confirmed close Covid exposure (<6ft for > 15mins in 24hr period)? (if yes, assign to ARC, regardless of vaccination status)-no *may be determined by RN or in discussion with available provider (TRIMMER OPERATOR's and CCA's can defer to Charge Nurse to complete triage when appropriate) PCP: Salome Mcarthur * Tristan Santa MEMORIAL COUNSELOR - 08/04/2023 1530 EDT Images from the original note were not included. [facility] Chief Complaint(s): Oral Pain Assessment & Plan: 1. Thrush, oral New Prescriptions NYSTATIN (MYCOSTATIN) 100,000 UNIT/ML SUSPENSION Take 5 mL by mouth 4 times daily for 7 days. This is a 83 y.o. yr old female patient is generally well appearing, afebrile, non toxic, well hydrated, stable on exam with who presents with sore mouth for a couple of days. Reports her BS had beenhigh recently and it feels the same as when she had oral thrush before. She reports Nystatin workedwell for her. Sore Mouth Irritation noted around the lower partial L>R Tongue is red and dry Not normal presentation of thrush Follow-up with dentist in September as scheduled if not sooner Other considered diagnosis include: mouth lesions, abscess, thrush, burned her mouth, ill fitting partials HPI: HPI Milka Corbett is a 83 y.o. yr old female here with complaints of burning in mouth & on tongue, has crack to R&L side sof mouth. Started 3-4d ago. Had yeast infections in mouth in past & states it feels similar. Nystatin has helped in the past. Blood sugars have been over 200 recently, but is eating less carbs & was 81. Nothing makes it worse or better her mouth ellison and stings all the time. ROS: ROS See HPI Social History Tobacco Use Smoking Status Never Smokeless Tobacco Never I have reviewed current problem list and current medications. Objective: Examination: Vital signs and nursing notes reviewed. Vitals: BP 133/60 Pulse 89 Temp 36.7 ??C (98.1 ??F) (Oral) Resp 16 SpO2 96% There is no height or weight on file to calculate BMI. Physical Exam HENT: Mouth/Throat: Mouth: Mucous membranes are dry. Oral lesions present. Dentition: Has dentures (partials top and bottome). No dental tenderness, gingival swelling, dentalabscesses or gum lesions. Tongue: No lesions (very dry, red and tender). Palate: No lesions (red and tender). Pharynx: Oropharynx is clear. Comments: Multiple spots on the left lower inner lip line and one on right of pinched and bruised skin with spots of blood. She does have partials - has an appointment in September as they are ill fitting. Reports she does not believe they are hurting her There is no white marking of the gums, palate, or lips noted Skin: General: Skin is warm and dry. Neurological: Mental Status: She is alert and oriented to person, place, and time. An appropriate medical screening examination was performed. The patient was assessed prior to discharge and deemed stable for discharge home. documented in this encounter Plan of Treatment Not on file documented as of this encounter Visit Diagnoses Diagnosis Thrush, oral- Primary Candidiasis of mouth documented in this encounter Discontinued Medications Medication Sig Discontinue Reason Start Date End Da te amitriptyline (ELAVIL) 100 mg tablet Take 1 Tab by mouth at bedtime. Order modification 06/06/2009 08/04/2023 gabapentin (NEURONTIN) 300 mg capsule Take 1 Cap by mouth 3 times daily. Order modification 06/06/2009 08/04/2023 documented as of this encounter Historical Medications * This list may reflect changes made after this encounter. Medication Sig Dispensed Refills Start Date End Date gabapentin (NEURONTIN) 600 mg tablet Take 1 Tablet by mouth 2 times daily. amitriptyline (ELAVIL) 50 mg tablet TAKE 1 TABLET BY MOUTH EVERY NIGHT BIOTENE DRY MOUTH ORAL RINSE mouthwash USE BY MOUTH DIRECTED THREE TIMES DAILY OR NEEDED FOR DRY MOUTH 07/12/2023 pramipexole (MIRAPEX) 0.125 mg tablet TAKE 3 TABLETS BY MOUTH AT NIGHT omeprazole (PRILOSEC) 40 mg capsule Take 1 capsule by mouth once a day 04/29/2023 metoprolol SUCCinate (TOPROL-XL) 25 mg tablet Take 1.5 Tablets by mouth daily. VICTOZA 2-CHIDI 0.6 mg/0.1 mL (18 mg/3 mL) injectable pen Inject 1.8mg subcutaneously every day 07/15/2023 d-mannose 500 mg capsule daily. ONETOUCH ULTRA2 METER 02/07/2023 ONETOUCH ULTRA TEST test strips USE 1 STRIP VIA METER THREE TIMES A DAY DIRECTED 09/11/2022 atorvastatin (LIPITOR) 20 mg tablet TAKE 1 TABLET BY MOUTH AT NIGHT albuterol 90 mcg/actuation inhaler Inhale 2 puff using inhaler every four to six hours as needed added in this encounter Care Teams Sweatband Shaper Relationship Specialty Start Date End Date Salome Mcarthur MEMORIAL COUNSELOR [address] [place] [address] PCP - General 03/14/20 documented as of this encounter
--- OUTSIDE RECORDS SUMMARY | 2023-12-02 18:37 | XMS_ITS | Encounter Summary ---
Author Organization [facility] [place] [address] Care Team Providers Care Network Systems Engineer Name Role Phone Salome Mcarthur APRN Primary Care Provider [phone] Reason for Visit * Auth/Cert Specialty Diagnoses / Procedures Referred By Jose t Referred To Contact Diagnoses Fatty (change of) liver, not elsewhere classified Unspecified cirrhosis of liver Cirrhosis, varices screening (IVCS) Procedures PRO UPPER GI ENDOSCOPY, DIAGNOSTIC EGD, UPPER GI ENDOSCOPY Referral ID Status Reason Start Date Expiration Date Visits Re quested Visits Authorized [id number] 1 1 Encounter Details Date Type Department Care Team (Latest Contact Info) Description 07/14/2015 1:02 PM EDT - 07/14/2015 3:58 PM EDT Hospital Encounter [place] [address] Leticia Ashraf MD [facility] [place] [address] Discharge Disposition: Home Social History Tobacco Use [...] Sign Reading Time Taken Comments Blood Pressure 141/84 07/14/2015 3:04 PM EDT Pulse 103 07/14/2015 3:04 PM EDT Temperature - - Respiratory Rate 16 07/14/2015 3:04 PM EDT Oxygen Saturation 95% 07/14/2015 3:04 PM EDT Inhaled Oxygen Concentration - - Weight 68 kg (150 lb) 07/14/2015 2:16 PM EDT Height 154.9 cm (5' 1) 07/14/2015 2:16 PM EDT Body Mass Index 28.34 07/14/2015 2:16 PM EDT documented in this encounter Discharge Instructions * Discharge Instructions* Jaida Jain RN - 07/14/2015 3:10 PM EDT UPPER GI ENDOSCOPY WHAT TO EXPECT [...] better as expected. Saturday-Saturday Same Day Endo [phone] Otherwise contact [phone] and ask to speak to the rug dyer quality control supervisor Follow-up care is a palomo part of [...] once a day for kidney protection 06/06/2009 fenofibrate (TRICOR) 145 mg Tablet Reported on [...] 100 mg capsule Take by mouth. 02/24/2009 red yeast rice 600 mg Tab Take 600 mg by mouth 2 times daily. 08/08/2023 documented as of this encounter H&P Notes * TrentAndrew - 07/14/2015 2:09 PM EDT Gastroenterology and Hepatology Pre-Procedure History and Physical Exam Procedure: EGD: Indication: 75yo F with diagnosed NAFLD presents to endoscopy the transaminitis, fibroscan 28kPA, pt denies edema, confusion, plan for screening of varices Patient Active Problem List Diagnosis Code [...] the patient. Consent signed. Electronically signed by: Andrew Newman Gastroenterology Fellow [facility] Pager [phone] 07/14/2015 documented in this encounter Plan of Treatment Upcoming Encounters Date Type Department Care Team (Late st Contact Info) Description 02/06/2024 11:30 AM EDT Appointment [place] [phone] Molly Cui APRN [facility] [address] 02/06/2024 12:15 PM EDT Laboratory Appointment Lab [address] [place] [phone] 02/06/2024 1:30 PM EDT Office Visit [place] [phone] Molly Cui APRN [facility] [place] [address] documented as of this encounter Procedures Procedure Name Priority Date/Time Associated Diagnosis Comments SURGICAL PATHOLOGY REPORT Routine 07/14/2015 3:04 PM EDT SPECIMEN TO PATHOLOGY Routine 07/14/2015 3:04 PM EDT SPECIMEN TO PATHOLOGY Routine 07/14/2015 3:04 PM EDT UPPER GASTROINTESTINAL ENDOSCOPY,WITH BIOPSY SINGLE OR MULTIPLE (WRVU 2.39) 07/14/2015 2:35 PM EDT NAFLD (nonalcoholic fatty liver disease) Cirrhosis of liver without ascites, unspecified hepatic cirrhosis type EGD, UPPER GI ENDOSCOPY (WRVU 2.09) 07/14/2015 2:35 PM EDT NAFLD (nonalcoholic fatty liver disease) Cirrhosis of liver without ascites, unspecified hepatic cirrhosis type POCT FINGERSTICK GLUCOSE Routine 016 2:32 PM EDT POCT GLUCOSE Routine 07/14/2015 2:29 PM EDT UPPER GI ENDOSCOPY Routine 07/14/2015 2: 20 PM EDT documented in this encounter Results * Surgical Pathology Report (07/14/2015 3:04 PM EDT) Final Diagnosis [id number] ? Location: 4T; EA01; A The signing pathologist has (i) examined the relevant preparation(s) for the specimen(s) and (ii) rendered or confirmed the diagnosis(es). . ?Surgical Pathology DIAGNOSIS A - Distal esophagus, ?? biopsy: - Gastric cardia-type mucosa with chronic inflammation, negative for intestinal metaplasia. - Esophageal squamous mucosa negative for diagnostic abnormality. B - Stomach, ??biopsy: - Antrum-type mucosa with reactive gastropathy. - Body/fundic-typ e mucosa, negative for diagnostic abnormality. 07/15/15 AAY 07/18/15 Verified by: ? Luke Saldana MD ?Pathologist ?(Electronic Signature) The attending pathologist whose signature appears on this report has reviewed all diagnostic slides and has edited the gross and/or microscopic portion of the report in rendering the final pathologic diagnosis. CLINICAL INFORMATION Specimen Submitted: A - Distal esophagus bx B - Stomach bx Clinical History: Erosions in the stomach, rule out H. Pylori and rule out Castillo ?'s esophagus Clinical Diagnosis: Same SPECIMEN PROCESSING A - Labeled/Fixativ e: Distal esophagus biopsy, formalin. Quantity/Size: Four, 0.2-0.4 cm. Tissue Description: Soft, tillman-pink tissue. Sections/Proces sing: (T1) B - Labeled/Fixativ e: Stomach biopsy, formalin. Quantity/Size: Four, 0.3 cm. Tissue Description: Soft, tillman-pink tissue. Sections/Proces sing: (T1) ??pps 07/18/2015 5:04 PM EDT [facility] GI Biopsy 07/14/2015 3:04 PM EDT 07/14/2015 3:04 PM EDT GI Biopsy 07/14/2015 3:04 PM EDT 07/14/2015 3:04 PM EDT Leticia Ashraf MD PATHOLOGY/CYTOLOGY O RDERABLES [facility] [place] [address] * Specimen to Pathology (surgical or derm) (07/14/2015 3:04 PM EDT) AP Specimen 07/14/2015 3:04 PM EDT 07/14/2015 3:04 PM EDT Narrative [facility] - 07/14/2015 3:04 PM EDT Specimen requisition ordered. ??Separate Pathology report to follow Leticia Ashraf MD PATHOLOGY/CYTOLOGY O RDMARTINE Performing Organization Address City/[facility]/ZIP Co de Phone Number [facility] [place] [address] * Specimen to Pathology (surgical or derm) (07/14/2015 3:04 PM EDT) AP Specimen 07/14/2015 3:04 PM EDT 07/14/2015 3:04 PM EDT Narrative [facility] - 07/14/2015 3:04 PM EDT Specimen requisition ordered. ??Separate Pathology report to follow Leticia Ashraf MD PATHOLOGY/CYTOLOGY O RDMARTINE Performing Organization Address [facility] Co de Phone Number [facility] [place] [address] * POCT Fingerstick Glucose (07/14/2015 2:32 PM EDT) Glucose, POC 101 60 - 199 mg/dl 07/14/2015 2:32 PM EDT Leticia Ashraf MD POINT OF CARE TEST O RDERABLES * POCT Glucose (07/14/2015 2:29 PM EDT) Glucose, POC 101 65 - 199 mg/dL [facility] Comment: Supplemental ranges: <140 mg/dL before meals <180 mg/dL all other times of the day Blood specimen (specimen) 07/14/2015 2:29 PM EDT 07/14/2015 2:29 PM EDT Leticia Ashraf MD POINT OF CARE TEST O RDERADOMINGA Performing Organization Address [facility] Co de Phone Number [facility] [place] [address] * UPPER GI ENDOSCOPY (07/14/2015 2:20 PM EDT) UPPER GI ENDOSCOPY [facility] Endoscopy Patient Name: Milka Corbett ? Procedure Date: 07/14/2015 2:20 PM ? Date of : 1940 ? Age: 75 ? Order #: [id number] ? Procedure: ? Upper GI endoscopy Indications: ? Screening procedure, Cirrhosis rule ? out esophageal varices Providers: ? Andrew Rodriges MD, ? Apoorva Beyer, Yaw Boyd, ? RN Referring : ?Sophia Mcarthur MD Requesting Provider: Molly Cui Medicines: ? Midazolam 2 mg IV, Fentanyl [...] prior to the ? procedure by the physician and the ? nurse. The procedure was verified in ? the pre-procedure area in the ? procedure room. ? - Pre-procedure physical examination ? revealed no contraindications to ? sedation. ? - ASA Grade Assessment: II - A ? patient with mild systemic disease. ? - After reviewing the risks and ? benefits, the patient was deemed in ? satisfactory condition to undergo the ? procedure. ? - The anesthesia plan was to use ? moderate sedation/analgesia ? (conscious sedation). ? The procedure, indications, benefits, ? risks and alternatives were explained ? to the patient. Specifically ? discussed were potential ? complications including, but not ? limited to, bleeding, perforation, ? infection, missing a cancer, and ? adverse medication reactions. The ? Endoscope was introduced through the ? mouth, and advanced to the third part ? of duodenum. The patient tolerated ? the procedure well. The patient ? tolerated the procedure well. ? Findings: ? The Z-line was irregular with two small salmon ? coloured island. This was biopsied with a cold ? forceps for histology. ? The exam of the esophagus was otherwise normal. No ? varices. ? Two non-bleeding superficial gastric ulcers were ? found in the gastric antrum. ? Hematin (altered blood/coffee-ground- like material) ? was found in the gastric body. No active bleeding ? seen. ? The exam of the stomach was otherwise normal. ? The duodenal bulb, first part of the duodenum, 2nd ? part of the duodenum and 3rd part of the duodenum ? were normal. ? Impression: ?- Irregular z line. Biopsied. ? - Gastric ulcers. Biopsied. ? - Normal duodenum Recommendation: ?Avoid NSAIDs ? OK to use Tylenol up to 2grams if ? needed ? Consider adding anti-reflux ? medication (after biopsy results) ? Follow up with Molly Cui ? Leticia Ashraf Leticia Ashraf, 07/14/2015 3:02 PM This report has been signed electronically. Number of Addenda: 0 Note Initiated On: 07/14/2015 2:20 PM PROVATION 07/14/2015 2:20 PM EDT Salome Mcarthur ECONOMIC DEVELOPMENT SPECIALIST GENERAL SURGICAL OR DERABLES PROVATION documented in this encounter Visit Diagnoses Not on filedocumented in this encounter Administered Medications Inactive Administered Medications - up to 3 most recent administrations Medication Order MAR Action Action Date Dose Rate Site lactated ringers infusion 100 mL/hr, Intravenous, CONTINUOUS, Starting on Melissa 07/14/15 at 1430, Until Melissa 16 at 1526, Endoscopy (Day of Procedure) New Bag 07/14/2015 2:30 PM EDT 100 mL/hr 100 mL/hr documented in this encounter Active and Recently Administered Medications Times are shown in EDT. Continuous Medication Order 07/12/2015 07/13/2015 07/14/2015 lactated ringers infusion (CANCELED) 100 mL/hr, Intravenous, CONTINUOUS, Starting on Melissa 07/14/15 at 1430, Until Melissa 07/14/15 at 1526, Endoscopy (Day of Procedure) 1430 (New Bag - Prov ider: Jessika Anand RN) PRN Medication Order 07/12/2015 07/13/2015 07/14/2015 benzocaine (TOPEX) 20 % oral spray (CANCELED) ONCE PRN, Starting on Melissa 07/14/15 at 1435, Until Melissa 07/14/15 at 1526, Intra-Operative (Intra-Procedure) 1435 (Given - Provid er: Apoorva Beyer RN - Comment: 6 sprays in the back of the throat) fentaNYL 50 mcg/mL multi-dose injection (CANCELED) ONCE PRN, Starting on Melissa 07/14/15 at 1435, Until Melissa 07/14/15 at 1526, Intra-Operative (Intra-Procedure), Routine 1435 (Given - Provid er: Apoorva Beyer RN - Comment: start moderate sedation)1440 (Given - Provider: Apoorva Beyer RN - Comment: sleepy but awake and talking as ready to start) midazolam (PF) (VERSED) 1 mg/mL multi-dose injection (CANCELED) ONCE PRN, Starting on Melissa 16 at 1435, Until Melissa 16 at 1526, Intra-Operative (Intra-Procedure), Routine 1435 (Given - Provid er: Apoorva Beyer RN - Comment: see fentanyl same time)1440 (Given - Provider: Apoorva Beyer RN - Comment: see fentanyl same time) documented in this encounter Care Teams Network Systems Engineer Relationship Specialty Start Date End Date Slaome Mcarthur APRN [address] [place] [address] PCP - General Family Medicine 05/30/15 documented as of this encounter
--- OUTSIDE RECORDS SUMMARY | 2023-12-02 18:37 | XMS_ITS | Encounter Summary ---
Author Organization [facility] Address [address] [place] [address] Care Team Providers Care Concaving Machine Operator Name Role Phone Salome Mcarthur HOUSE COORDINATOR Primary Care Provider [phone] Encounter Details Date Type Department Care Team (Latest Contact Info) Description 03/16/2020 Travel Social History Tobacco Use Types Packs/Day [...] 14:15 EST Sexual Orientation Not on file COVID-19 Exposure Response Date Recorded In the last month, have you been in contact with someone who was confirmed or suspected to have Coronavirus / COVID-19? No / Unsure 03/16/2020 11:15 EST documented as of this encounter Functional Status Cognitive Status Response Date of Assessm ent Because of a physical, menta l, or emotional condition, do you have serious difficulty concentrating, remembering, or making decisions? (5 years old or older) Yes 08/21/2011 documented as of this encounter Plan of Treatment Not on file documented as of this encounter Visit Diagnoses Not on filedocumented in this encounter Care Teams Concaving Machine Operator Relationship Specialty Start Date End Date Salome Mcarthur, HOUSE COORDINATOR [address] [place] [address] PCP - General 03/14/20 documented as of this encounter
--- OUTSIDE RECORDS SUMMARY | 2023-12-02 18:37 | XMS_ITS | Encounter Summary ---
Author Organization [facility] Address [facility] [place] [address] Care Team Providers Care Heating And Ventilating Tender Name Role Phone Lizbet Zhang APRN Primary Care Provider + Encounter Details Date Type Department Care Team (Late st Contact Info) Description 07/22/2012 11:00 AM EDT Office Visit Urology at [facility] [place] [phone] Urge incontinence (Primary Dx); Mixed incontinence Social History Tobacco Use Types Packs/Day Years Used Date Smoking Tobacco: Never Smokeless Tobacco: Never Alcohol Use Standard Drinks/Week Comments Yes 0 (1 standard drink = 0.6 oz pur e alcohol) once per year Sex and Gender Information Value Date Recorded Sex Assigned at Not on file Gender Identity Not on file Sexual Orientation Not on file documented as of this encounter Patient Instructions * Patient Instructions* Rupa Alberts LPN - 07/22/2012 12:18 PM EDT Void first then cath at least 2 times daily. We will see you in 3 months documented in this encounter Progress Notes * Sandra Beltrán MD - 07/22/2012 12:18 PM EDT Reason for Visit:Milka Corbett is a 72 y.o. female who is here for urodynamics and a discussion of treatment options. Milka has a history of Mixed incontinene. This is .her First Study here. OBJECTIVE: Well looking female in no acute distress. Vital signs: see flow sheet PVR: 125 cc measured when the urodynamic catheter was inserted, immediately after the patient had voided. Dipstick Urinalysis: neg URODYNAMICS/Injection of Contrast: mGy: 12.9 mGym2: 0.233 The patient was filled with cystograffin at a rate of 50ml/min. via a 10 Fr urodynamic catheter in the urethra with an abdominal catheter in the rectum and EMG pads placed on the perineum. 300 ml of high osmolar contrast was instilled. 0 ml were wasted. Cystogram: Fluoroscopic imaging at rest during bladder filling revealed a smooth bladder with the bladder neckclosed at rest. Additional fluoroscopic images were obtained at rest, during filling, at capacity, and after emptying. V/ALPP: The patient was asked to valsalva at increments of 50 ml starting at 150 ml. Leakage was not seen at a volume of 250 ml and at a pressure of 126 cm of H2O. Complex Cystometrogram: The detrusor (bladder minus abdominal) pressure was stable to a volume of 300 ml. There was normal compliance. The DLPP was Measured at 13 cm H20. Filling sensation was normal. Bladder capacity: 300 ml Pressure Flow: The patient was given permission to void at 250 ml and did so with a detrusor (bladder minus abdominal) pressure of 18 cm H2O and a poor flow and did not empty. The PVR after instrumented voiding wasapprox. 250 ml and an image was taken. Pad EMG: EMG activity was unremarkable during filling and emptying. I was present for the pertinent portions of the urodynamics. I reviewed the results with the patient following the procedure. I reviewed and edited the final report which is in the chart. IMPRESSION: mixed incontience, No evidence of obstruction DO Poor bladder emptying PLAN: start CIC at least bid Timed voiding documented in this encounter Plan of Treatment Upcoming Encounters Date Type Department Care Team (Late st Contact Info) Description 02/06/2024 11:30 AM [place]T [place] [address] Molly Cui APRN [facility] [place] [address] 02/06/2024 12:15 PM EDT Laboratory Appointment Lab [address] [place] [phone] 02/06/2024 1:30 PM EDT Office [place] [phone] Molly Cui APRN [facility] [place] [address] documented as of this encounter Visit Diagnoses Diagnosis Urge incontinence- Primary Mixed incontinence Mixed incontinence urge and stress (male)(female) documented in this encounter Care Teams Heating And Ventilating Tender Relationship Specialty Start Date End Date Lizbet Zhang APRN PCP - General 06/30/12 05/29/15 documented as of this encounter
--- OUTSIDE RECORDS SUMMARY | 2023-12-02 18:37 | XMS_ITS | Encounter Summary ---
Author Organization [facility] Address [address] [place] [address] Care Team Providers Care Quill Worker Name Role Phone Salome Mcarthur ELECTROMEDICAL EQUIPMENT REPAIRER Primary Care Provider [phone] Encounter Details Date Type Department Care Team (Late st Contact Info) Description 10/25/2023 Lab Requisition [facility] Pathology & Laboratory Medicine - [facility] [address] [place], [place] [id number] Outr Resulting Lab, Provider Social History Tobacco Use Types Packs/Day Years [...] on file documented as of this encounter Functional Status Cognitive Status Response Date of Assessm ent Because of a physical, menta l, or emotional condition, do you have serious difficulty concentrating, remembering, or making decisions? (5 years old or older) Yes 08/21/2011 documented as of this encounter Plan of Treatment Not on file documented as of this encounter Procedures Procedure Name Priority Date/Time Associated Diagnosis Comments MOLECULAR VAGINITIS/VAGINOSIS ASSAY Routine 10/25/2023 11:00 EDT documented in this encounter Results * (ABNORMAL) MOLECULAR VAGINITIS/VAGINOSIS ASSAY (10/25/2023 11:00 EDT) Wendy Species Positive(A) Negative 10/26/19 12:46 EDT [facility] Wendy glabrata Positive(A) Negative 10/26/2023 12:46 EDT [facility] Trichomonas Vaginalis Negative Negative 10/26/2023 12:46 EDT [facility] BV (Bacterial vaginosis) Negative Negative 10/26/2023 12:46 EDT [facility] Swab VAGINAL STRUCTURE / Unknown 10/25/2023 11:00 EDT 10/25/2023 22:59 EDT Provider Outr Resulting Lab MICROBIOLOGY - GENERAL ORDERABLES Performing Organization Address City/State/[facility] Co de Phone Number [facility] [address] [place] [address] documented in this encounter Visit Diagnoses Not on filedocumented in this encounter Care Teams Quill Worker Relationship Specialty Start Date End Date Salome Mcarthur, JEIMY [address] [place] [address] PCP - General 03/14/20 documented as of this encounter
--- OUTSIDE RECORDS SUMMARY | 2023-12-02 18:37 | XMS_ITS | Encounter Summary ---
Author Organization [facility] Address [address] [place] [address] Care Team Providers Care Allergist/Immunologist Physician Name Role Phone Salome Mcarthur ACID MIXER Primary Care Provider [phone] Encounter Details Date Type Department Care Team (Late st Contact Info) Description 10/25/2021 Documentation Visit [facility] Therapy - [address] [id number] Kal Clark, PT [address] [place], [place] [id number] Social History Tobacco Use Types Packs/Day Years [...] Yes 08/21/2011 documented as of this encounter Progress Notes * Kal Clark, PT - 10/25/2021 1701 EDT [facility] [phone] Physical Therapy Discharge Not Seen Recently Medical Diagnosis: BPPV, left posterior canal Referring Clinician: Salome Mcarthur NP Therapy Diagnosis: BPPV, left posterior canalithiasis, 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 Visits: 1 Medicare certification through: 11/09/21 Reporting Period: 09/28/21 only visit Physical Therapy Program to Date: In summary, the program has included: Canalith repositioning manever Goal Review: Rehabilitation Potential: Good ?? Short-Term Goals Timeframe: 3 weeks, 10/19/21 1. Pt will be able to transition from supine to sit without dizziness to be able to transfer safely. -Met 2. Pt will be able to bend forward and stand back up again without dizziness to be able to transfersafely. -Met ?? Long-Term Goals Timeframe: 6 weeks, 11/09/21 1. Pt will be able to transfer chair to bed or surface to surface without dizziness to be able to transfer safely. -Met 2. Pt will be able to ambulate community distances without reports of dizziness or unsteadiness to be able to ambulate safely. -Met Discharge Reason: Pt failed to show for her final visit. She was called and reported that her vertigo has been resolved and has no more symptoms. Discharge patient at this time; future therapy will require a new physician's referral. documented in this encounter Plan of Treatment Not on file documented as of this encounter Visit Diagnoses Not on filedocumented in this encounter Care Teams Allergist/Immunologist Physician Relationship Specialty Start Date End Date Salome Mcarthur NP [address] [place] [address] PCP - General 03/14/20 documented as of this encounter
--- OUTSIDE RECORDS SUMMARY | 2023-12-02 18:37 | XMS_ITS | Encounter Summary ---
Author Organization [facility] Address [address] [place] [address] Care Team Providers Care Customer Advocacy Manager Name Role Phone Salome Mcarthur DISTRICT WIRE CHIEF Primary Care Provider [phone] Reason for Visit * Reason Comments New Patient Visit Spot of right calf t hat has been there for a few weeks that's getting bigger. No P/FHx of skin cancer Encounter Details Date Type Department Care Team (Late st Contact Info) Description 03/16/2020 11:00 EST Office Visit [facility] Dermatology [address] [facility], [place] [address] Brittanie Ponce MD [address] [facility], [facility] [address] [place] [address] Neoplasm of uncertain behavior of skin (Primary Dx); Milial cyst Social History Tobacco Use Types Packs/Day Years [...] this encounter Patient Instructions * Patient Instructions* Dianne Marrero - 03/16/2020 11:00 EST For spot of the right lower leg: - Apply mupirocin ointment to biopsy site twice a day for 7-10 days WOUND CARE INSTRUCTIONS FOR SKIN BIOPSIES DRESSING/BANDAID: This should remain in place for 24 hours. You may shower or bathe after 24 hours.After the shower, remove the bandage, pat dry, and replace it with Vaseline/petroleum jelly and non-stick bandaging. DISCOMFORT: Tylenol (acetaminophen) or ibuprofen may be used for discomfort. Generally the pain should be mild. Take according to residential solar consultant directions. BLEEDING: You may notice some blood on the edges of the dressing the first day and this is NORMAL. If the bleeding soaks through the dressing, hold solid pressure on the area with a wet wash cloth for 15 minutes. If the bleeding stops, put a new dressing on the site. If not, call our office at . ACTIVITY: You may resume normal activity in 1 day unless instructed otherwise. WOUND CARE: ?? Wash hands with soap and water before changing the dressing. ?? Change the dressing daily and when it becomes wet/dirty. Clean the wound daily with mild soap and water. You may gently loosen any crusts with a cotton swab. The wound may be slightly tender and may bleed a small amount. A small amount of discharge is normal. Apply a thin layer of sterile petroleum jelly/vaseline over the wound. Cover the wound with a non-stick dressing or bandage. It is important to keep the wound covered for 1 week. We do not recommend antibiotic ointment as many people will develop an allergic reaction. SUTURE REMOVAL: Please return to our clinic at your scheduled appointment for suture removal. You may also have your local doctors remove them at the scheduled time. CONTACT THE OFFICE IF YOU EXPERIENCE: ?? increased redness ?? warmth to touch ?? increased pain ?? drainage with a foul odor ?? rapid swelling of the wound ?? fever or chills It was a pleasure taking care of you today. Please call our office if you have any concerns or questions. documented in this encounter Ordered Prescriptions Prescription Sig Dispensed Refills Start Date End Da te fluconazole (DIFLUCAN) 150 mg tablet Take 1 Tab by mouth every 72 hours. Until symptom free. Take as soon as symptoms begin 3 Tab 03/16/2020 mupirocin (BACTROBAN) 2 % ointment Apply topically to affected area 2 times daily. 22 g 3 03/16/2020 cephALEXin (KEFLEX) 500 mg capsule Take 1 Cap by mouth 4 times daily for 7 days. 28 Cap 03/16/2020 03/23/2020 documented in this encounter Progress Notes * Dianne Marrero - 03/16/2020 1100 EST Images from the original note were not included. Dermatology Outpatient Visit Note Chief Complaint Patient presents with ??? New Patient Visit Spot of right calf that has been there for a few weeks that's getting bigger. No P/FHx of skin cancer Dermatologic History: No specialty comments available. Last Dermatology office visit: NPV SUBJECTIVE Ms. Corbett is a 79 y.o. female who presents for new evaluation and treatment for a spot on her right lower leg. Started as a red spot 3 weeks ago that grew rapidly, is now becoming smallerslowly. It is tender on compression. Denies bleeding or drainage. Treated with an OTC antibiotic topical which had no positive effect. History of diabetes. Additionally she notes several white bumps just right of her nose, developed in the last several years, all asymptomatic. Denies a personal or family history of skin cancer. She is otherwise feeling well and has no other cutaneous concerns today. She denies any other new, changing, bleeding, tender, or non-healing skin lesions today. For full Medical, Surgical, Family, and Social histories, please see the History section of this encounter in the electronic chart which I have personally reviewed. For Review of Systems, Medications and Allergies, please see those sections of this encounter in the electronic chart which I have also reviewed. She has a current medication list which includes the following prescription(s): acetaminophen, amitriptyline, butalbital/aspirin/caffeine, cephalexin, clonazepam, docusate sodium, fexofenadine, fluconazole, gabapentin, lisinopril, metformin, multivitamin, and omega-3 fatty acids-vitamin e. She is allergic to pedro inhibitors; atenolol; bactrim [sulfamethoxazole- trimethoprim]; codeine; dilaudid [hydromorphone (bulk)]; erythromycin; and latex, natural rubber. OBJECTIVE VS: There were no vitals taken for this visit. Ms. Corbett is healthy, well developed, well-nourished, in no acute distress, alert and interactivefemale sitting on the examination table with a normal affect. She is alert and oriented to person, place and time. She has Thomas type II skin. Cutaneous focused exam of the face and right lowerleg was performed.The examination was normal with the addition of the following comments: - right lower leg: indurated tender pink papulonodule with surrounding erythema - medial cheeks: multiple white cystic papules ASSESSMENT/PLAN 1. Neoplasm of uncertain behavior of the right lower leg: DDx includes cyst vs cystic squamous cellcarcinoma vs basal cell carcinoma vs irritated seborrheic keratosis vs lichen planus-like keratosisvs other - surrounding erythema likely allergic contact reaction to neosporin. - Recommended biopsy of the lesion given the concern for malignancy or uncertainty in diagnosis. The patient agrees with this plan. Advised the patient on the risks of biopsy, including pain, infection, bleeding and scar formation. Will call with biopsy results when available, and make further treatment recommendations based on the results. - Apply mupirocin BID with dressing changes - Keflex 500 mg QID x 7 days given location and open cystic space following biopsy. - fluconazole PRN yeast infection 2. Milial cysts The benign nature of the patient's lesions was discussed. No intervention is needed unless they become symptomatic and the patient was reassured today. Med Orders Placed This Visit and Additions to the Medication List Medications ??? mupirocin (BACTROBAN) 2 % ointment Sig: Apply topically to affected area 2 times daily. Dispense: 22 g Refill: 3 ??? cephALEXin (KEFLEX) 500 mg capsule Sig: Take 1 Cap by mouth 4 times daily for 7 days. Dispense: 28 Cap Refill: 0 ??? fluconazole (DIFLUCAN) 150 mg tablet Sig: Take 1 Tab by mouth every 72 hours. Until symptom free. Take as soon as symptoms begin Dispense: 3 Tab Refill: 0 SHAVE BIOPSY PATIENT INFORMATION: Milka Corbett : MRN: [id number] SURGEON: Brittanie Ponce MD The indication, risks, benefits and alternatives to this procedure were discussed in detail with the patient and all questions were answered. Informed consent was obtained in writing. PROCEDURE NOTE Specimen A Procedure: Tangential Shave Indication: Diagnostic Biopsy Site: Right lower leg Anesthesia: 1% lidocaine with epinephrine 1:100,000 local infiltration Prep: Chlorhexidine The lesion was prepped as above and locally anesthetized. The specimen was removed by tangential shave using a Dermablade??. Hemostasis was achieved with pressure and/or aluminum chloride. The wound was cleansed with alcohol and a sterile dressing was applied over Petrolatum ointment. Verbal and written wound care instructions were given.The specimen was submitted to pathology for histological evaluation. She will Return in about 1 year (around 03/16/2021) for FBSE. Scribe Attestation By time stamping my name below, I attest that this documentation has been prepared under the direction and in the presence of the provider listed as the provider on this encounter. Dianne Marrero 03/16/2020 11:39 Provider Attestation By time stamping my name below, I, as the provider for this encounter, personally performed the services described in this documentation. All medical record entries made by the scribe were at my direction and in my presence. I have reviewed the chart and any discharge instructions and agree that the record reflects my personal performance and is accurate and complete. Brittanie Ponce MD 03/16/2020 13:29 * Christa Nelson - 03/16/2020 1100 EST Review of Systems Constitutional: Negative. HENT: Negative. Eyes: Negative. Respiratory: Negative. Cardiovascular: Negative. Gastrointestinal: Negative. Genitourinary: Negative. Musculoskeletal: Negative. Skin: Negative. Neurological: Negative. Endo/Heme/Allergies: Negative. Psychiatric/Behavioral: Negative. * Christa Nelson - 03/16/2020 1100 EST Lidocaine Lot #[id number] EXP: [id number] documented in this encounter Miscellaneous Notes * Result Encounter Note - Brittanie Ponce MD - 03/16/2020 1100 EST Please notify patient that lesion biopsied was benign irritated seborrheic keratosis (with underlying cyst as discovered at time of biopsy). No further treatment necessary. Brittanie Ponce MD 03/23/2020 11:15 * Result Encounter Note - Germán Abdullahi RN - 03/16/2020 1100 EST Message left for patient to call back to discuss results. * Result Encounter Note - Germán Abdullahi RN - 03/16/2020 1100 EST Spoke with patient and relayed biopsy results of a benign irritated seborrheic keratosis with an underlying cyst with no further treatment needed. Patient voiced understanding. documented in this encounter Plan of Treatment Scheduled Orders Name Type Priority Associated Diagnoses Orde r Schedule BACTERIAL CULTURE/SMEAR Microbiology Routine Neoplasm of uncertain behavior of skin Ordered: 03/16/2020 documented as of this encounter Procedures Procedure Name Priority Date/Time Associated Diagnosis Comments ROUTINE CULTURE - [facility] Routine 03/16/2020 11:45 EST Neoplasm of uncertain behavior of skin GRAM SMEAR Routine 03/16/2020 11:45 EST Neoplasm of uncertain behavior of skin SURGICAL PATHOLOGY Routine 03/16/2020 11 :44 EST Neoplasm of uncertain behavior of skin documented in this encounter Results * ROUTINE CULTURE - [facility] (03/16/2020 11:45 EST) USUAL SKIN TRUNG - [facility] USF 03/19/2020 9:38 EST [facility] QUANT - [facility] MODERATE 03/19/2020 9:38 EST [facility] Lower limb structure (body structure) 03/16/2020 11:45 EST 03/17/2020 16:10 EST Comment:RL [facility] - 03/19/2020 9:38 EST RIGHT LOWER LEG Brittanie Ponce MD CHEMISTRY & BLOOD GA S ORDERABLES Performing Organization Address [facility] Co de Phone Number [facility] [address] [place] [address] * GRAM SMEAR (03/16/2020 11:45 EST) GRAM STAIN - [facility] TWO SWABS RECEIVED FOR CULTURE AND GRAM STAIN 03/17/2020 19:43 EST [facility] BACTERIA SEEN - [facility] NO 03/17/2020 19:43 EST [facility] WBC NO 03/17/2020 19:43 EST [facility] Lower limb structure (body structure) 03/16/2020 11:45 EST 03/17/2020 16:10 EST Comment:RL Daria [facility] - 03/19/2020 9:38 EST RIGHT LOWER LEG Brittanie Ponce MD MICROBIOLOGY - GENER AL ORDERABLES Performing Organization Address City/[facility]/ZIP Co de Phone Number [facility] [address] [place] [address] * SURGICAL PATHOLOGY (03/16/2020 11:44 EST) Final Diagnosis A. SKIN OF LEG, RIGHT LOWER, SHAVE BIOPSY: - Seborrheic keratosis, irritated. 03/21/2020 16:17 EST [facility] Attestation By the signature below, the attending physician certifies that they have 1) personally conducted a gross and/or microscopic examination of the described specimen(s), and/or personally interpreted the results of laboratory testing of the described specimen(s), and 2) personally rendered or confirmed the above diagnosis. 03/21/2020 16:17 [facility] at 1617 Microscopic Description Sections consist of a shave biopsy of a papule. There is hyperkeratosis with focal parakeratosis. The papules formed by epidermal acanthosis with a focal endophytic growth pattern. The keratinocytes have reactive changes with hypergranulosis. Within the dermis, there is a patchy mixed infiltrate. Deeper sections have similar features. 03/21/2020 16:17 [facility] Clinical History Indurated tender pink papule with surrounding erythema: ?SCC vs BCC vs irritated SK vs LPLK vs other; clinical diagnosis code: D48.5 03/21/2020 16:17 [facility] Gross Description A. Received in formalin labelled with proper patient identification (initials C, S) and not otherwise specified is a shave biopsy of pale tillman to tillman-pink plaque like skin (1.1 x 0.8 x 0.1 cm). The margin is inked blue. Trisected and submitted in A1. Alexis Ponce 03/17/2020 10:16 03/21/2020 16:17 [facility] Performing Lab [facility] 03/21/2020 16:17 [facility] Scanned Images 03/21/2020 16:17 [facility] Tissue TISSUE SPECIMEN FROM SKIN / Unknown 03/16/2020 11:44 EST 03/17/2020 6:54 EST Brittanie Ponce MD PATHOLOGY ORDERABLES [facility] [address] [place] [address] documented in this encounter Visit Diagnoses Diagnosis Neoplasm of uncertain behavior of skin- Primary Milial cyst Sebaceous cyst documented in this encounter Discontinued Medications Medication Sig Discontinue Reason Start Date End Da te fluconazole (DIFLUCAN) 150 mg tablet Take 1 Tab by mouth daily. Take first dose on day 5 of ABX therapy, second dose on day 8. 08/27/2011 03/16/2020 cephALEXin (KEFLEX) 500 mg capsule Take 1 Cap by mouth 4 times daily. 08/27/2011 03/16/2020 documented as of this encounter Care Teams Customer Advocacy Manager Relationship Specialty Start Date End Date Salome Mcarthur, DISTRICT WIRE CHIEF [address] [place] [address] PCP - General 03/14/20 documented as of this encounter
--- OUTSIDE RECORDS SUMMARY | 2023-12-02 18:37 | XMS_ITS | Encounter Summary ---
Author Organization [facility] Address [address] [place] [address] Care Team Providers Care Toll Collector Name Role Phone Salome Mcarthur ROTARY PEEL OVEN TENDER Primary Care Provider [phone] Encounter Details Date Type Department Care Team (Latest Contact Info) Description 01/19/2022 Plan of Care Documentation [address] [id number] Social History Tobacco Use Types Packs/Day Years [...] as of this encounter Progress Notes * Mallory Gallagher, PT - 01/19/2022 1151 EDT Outpatient Rehab Plan of Care ASSESSMENT Therapy Diagnosis: L posterior canal canalithiasis BPPV, unsteadiness on feet Problem List: Impaired ambulation, Impaired balance, Need for an independent home exercise program and Vertigo Assessment: Milka is well known to this clinic due to previous history of BPPV. She presents today with recent re-occurance of symptoms. She did attempt to complete maneuvers at home with children which helped somewhat but did not completely resolve. She does demonstrate signs/symptoms of mild L posterior canal BPPV and responded well to maneuvers today. Pt re-issued instructions for CRM at home and may continue with assist from children as needed. Will follow up in clinic in about 1 week to determine if symptoms are resolved. Equipment Needed: None, pt has cane Barriers to Learning: None Potential Barriers to Progress: None Response to Evaluation: Well Rehabilitation Potential: Motivation/Commitment to Therapy: Good Rehabilitation Potential: Good Short-Term Goals Timeframe: Deferred Goals: Deferred Long-Term Goals Timeframe: 3 weeks (02/09/22) Goals: 1 Pt will be able to roll over in bed without vertigo and get up to walk to bathroom in the morningwithout LOB. 2 Pt will demonstrate TUG less than 12sec to indicate low risk for falls with ambulation in the home. PLAN Medical Necessity: Therapy intervention is indicated in order to return to a premorbid level of function or significantly improve current level of function. Physical Therapy is recommended for: Treatment Frequency/ Duration: 1x/week up to 3 visits Therapy Treatment to include: 85342 - Hot Cold Pack, 98579 - Therapeutic Exercise, 16781 - Neuromuscular Re-education, 13299 - Manual Therapy, 80708 - Canalith Repositioning and 83467 - Therapeutic Activity Recommended Consults: None Development of Plan of Care: Patient and family participated in development of plan of care today. ATTENDING PHYSICIAN: Medicare certification needed. Your signature indicates you approve the therapy goals and plan of care outlined on this document dated 01/19/2022. Thank you! Attending Physician Signature Date Mallory Gallagher PT 01/19/2022 11:50 documented in this encounter Plan of Treatment Not on file documented as of this encounter Visit Diagnoses Not on filedocumented in this encounter Care Teams Toll Collector Relationship Specialty Start Date End Date Salome Mcarthur, JEIMY [address] [place] [address] PCP - General 03/14/20 documented as of this encounter
--- OUTSIDE RECORDS SUMMARY | 2023-12-02 18:37 | XMS_ITS | Encounter Summary ---
Author Organization [facility] Address [address] [place] [address] Care Team Providers Care Photoradio Operator Name Role Phone Salome Mcarthur LINDERMAN MACHINE OPERATOR Primary Care Provider [phone] Encounter Details Date Type Department Care Team (Latest Contact Info) Description 09/05/2023 Plan of Care Documentation [address] [id number] Social History Tobacco Use Types Packs/Day Years [...] Progress Notes * Kal Clark, PT - 09/09/2023 0743 EDT Outpatient Rehab Plan of Care ASSESSMENT Therapy Diagnosis: Dizziness, unsteadiness on feet, insidious onset June or July 2023. Problem List: Impaired ambulation, Impaired balance, and Vertigo Assessment: Pt presents with reports of 2 months of dizziness. Pt reports spinning sensation for a few seconds when she moves her head. She did have some dizziness when performing the left and right Hallpike-Scott. However, did not show nystagmus. She completed the Amanda for left ear posterior canalithesis one time, due to the left Hallpike-[place] having greater dizziness. However, it should be noted that her symptoms appear to be more vestibular in nature in that she has dizziness with oculomotor and VOR testing. This also causes significant unsteadiness on her feet. She is at a high fall risk based on her scores on the 4 stage balance test. The Amanda was completed to clear her posterior canal if in fact she does have canalithesis. Recommend a progression of PT once the canalith repositioning is finished, to progress to gaze stabilization and balance exercises to help decrease her dizziness and decrease her fall risk. Equipment Needed: None currently. Barriers to Learning: None Potential Barriers to Progress: Pt has multiple causes of dizziness. She may not be able to do the canalith repositioning maneuvers independently at home. Response to Evaluation: Well Rehabilitation Potential: Motivation/Commitment to Therapy: Good Rehabilitation Potential: Fair , limited by possible BPPV as well as vestibular causes of dizziness. She may also have dizziness due to migraines. Short-Term Goals Timeframe: 4 weeks, 10/03/23 Goals: Pt will be able to transition from supine to and from sitting with dizziness no greater than 2/10 to be able to safely get out of bed. Pt will be able to walk distances in her home with dizziness no greater than 2/10 to be able to decrease her fall risk. Pt will demonstrate an improvement in her 4 stage balance test to complete stage III bilaterally kavin able to decrease her fall risk and ambulate safely. Long-Term Goals Timeframe: 8 weeks, 10/31/23 Goals: Pt will be able to transition from sit to stand and be able to bend forward with dizziness no greater than 2/10 to be able to safely get out of bed. 2. Pt will be able to walk distances in the community with dizziness no greater than 2/10 and without reaching out to hill or surfaces to be able to ambulate with better steadiness. 3. Pt will demonstrate an improvement in her Functional Gait Assessment scores to 22/30, indicatinglow fall risk and safe to ambulate community distances independently. PLAN Medical Necessity: Therapy intervention is indicated in order to return to a premorbid level of function or significantly improve current level of function. Physical Therapy is recommended for:An improvement in current level of function. Treatment Frequency/ Duration: 2x weekly for 4 weeks, then 1x weekly for 4 weeks. Therapy Treatment to include: 13490 - Therapeutic Exercise, 71289 - Neuromuscular Re-education, 94047 - Canalith Repositioning, and 79364 - Therapeutic Activity Recommended Consults: None currently. Development of Plan of Care: Patient participated in development of plan of care today. Plan for next visit: Perform the Liberatory maneuver for left and right ear posterior canalithesis next time due to some neck stiffness. If canalith repositioning does not help, then will move to treatment of neck pain with headaches as well as vestibular treatment to include VOR and gaze stabilization exercises. Progress to static and dynamic balance exercises. Assess functional Gait Assessment. The patient has been instructed to contact our clinic if any questions or problems should arise ATTENDING PHYSICIAN: Medicare certification needed. Your signature indicates you approve the therapy goals and plan of care outlined on this document dated 09/05/2023. Thank you! Attending Physician Signature Date documented in this encounter Plan of Treatment Not on file documented as of this encounter Visit Diagnoses Not on filedocumented in this encounter Care Teams Photoradio Operator Relationship Specialty Start Date End Date Salome Mcarthur NP [address] [place] [address] PCP - General 03/14/20 documented as of this encounter
--- OUTSIDE RECORDS SUMMARY | 2023-12-02 18:37 | XMS_ITS | Encounter Summary ---
Author Organization [facility] Address [address] [place] [address] Care Team Providers Care Antisqueak Applier Name Role Phone Salome Mcarthur BOOKKEEPER RECEPTIONIST Primary Care Provider [phone] Encounter Details Date Type Department Care Team (Latest Contact Info) Description 09/28/2021 Plan of Care Documentation [facility] [address] [place] [id number] Social History Tobacco Use Types Packs/Day Years [...] Progress Notes * Kal Clark, PT - 09/28/2021 1557 EDT Outpatient Rehab Plan of Care ASSESSMENT Therapy Diagnosis: BPPV, left posterior canalithiasis, 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 Problem List: Impaired balance, Need for an independent home exercise program and Vertigo Assessment: Pt presents with about 3 month onset of vertigo. She demonstrates mild impairments in her VOR response, possibly causing her impaired balance. Her main vertigo symptoms were elicited witha right Hallpike-Scott maneuver, and resolved in less than 5 seconds. This is consistent with left posterior canalithiasiss. She had a good response to treatment with decreased vertigo with the second trial. She has a good rehab potential to achieve goals. Equipment Needed: Possibly a cane due to unsteady gait. Barriers to Learning: None Potential Barriers to Progress: None Response to Evaluation: Well Rehabilitation Potential: Motivation/Commitment to Therapy: Good Rehabilitation Potential: Good Short-Term Goals Timeframe: 3 weeks, 10/19/21 1. Pt will be able to transition from supine to sit without dizziness to be able to transfer safely. 2. Pt will be able to bend forward and stand back up again without dizziness to be able to transfersafely. Long-Term Goals Timeframe: 6 weeks, 11/09/21 1. Pt will be able to transfer chair to bed or surface to surface without dizziness to be able to transfer safely. 2. Pt will be able to ambulate community distances without reports of dizziness or unsteadiness to be able to ambulate safely. PLAN Medical Necessity: Therapy intervention is indicated in order to return to a premorbid level of function or significantly improve current level of function. Physical Therapy is recommended for:An improvement in current level of function. Treatment Frequency/ Duration: 1x weekly for 6 weeks Therapy Treatment to include: 20261 - Therapeutic Exercise, 65781 - Neuromuscular Re-education, 33582 - Canalith Repositioning and 46077 - Therapeutic Activity Recommended Consults: None currently Development of Plan of Care: Patient participated in development of plan of care today. Plan for next visit: Assess response to the left Amanda maneuver. Possibly assess static balance with the 4 stage balance test and 5x sit to stand. The patient has been instructed to contact our clinic if any questions or problems should arise ATTENDING PHYSICIAN: Medicare certification needed. Your signature indicates you approve the therapy goals and plan of care outlined on this document dated 09/28/2021. Thank you! Attending Physician Signature Date Kal Amber, PT 09/28/2021 15:57 documented in this encounter Plan of Treatment Not on file documented as of this encounter Visit Diagnoses Not on filedocumented in this encounter Care Teams Antisqueak Applier Relationship Specialty Start Date End Date Salome Mcarthur, BOOKKEEPER RECEPTIONIST [address] [place] [address] PCP - General 03/14/20 documented as of this encounter
--- OUTSIDE RECORDS SUMMARY | 2023-12-02 18:37 | XMS_ITS | Encounter Summary ---
Author Organization [facility] Address [facility] [place] [address] [place] [address] Care Team Providers Care Epic Prelude Analyst Name Role Phone Salome Mcarthur APRN Primary Care Provider [phone] Encounter Details Date Type Department Care Team (Latest Contact Info) Description 02/15/2016 2:00 PM EST Laboratory Appointment Lab [address] [place] [phone] NAFLD (nonalcoholic fatty liver disease); Cirrhosis of liver without ascites, unspecified hepatic cirrhosis type Social History Tobacco Use Types Packs/Day Years [...] 02/06/2024 11:30 AM EDT [place] [phone] Molly Cui CUSTOMER RESOLUTION SPECIALIST [facility] [place] [address] 02/06/2024 12:15 PM EDT Laboratory Appointment Lab [address] [place] [phone] 02/06/2024 1:30 PM EDT Office [place] [address] Molly Cui APRN [facility] [place] [address] documented as of this encounter Procedures Procedure Name Priority Date/Time Associated Diagnosis Comments HEMOGRAM Routine 02/15/2016 1:48 PM EST NAFLD (nonalcoholic fatty liver disease) Cirrhosis of liver without ascites, unspecified hepatic cirrhosis type DIFFERENTIAL, AUTOMATED Routine 02/15/2016 1:48 PM EST NAFLD (nonalcoholic fatty liver disease) Cirrhosis of liver without ascites, unspecified hepatic cirrhosis type PROTHROMBIN TIME Routine 02/15/2016 1:48 PM EST NAFLD (nonalcoholic fatty liver disease) Cirrhosis of liver without ascites, unspecified hepatic cirrhosis type CBC (WITH DIFF) Routine 02/15/2016 1:48 PM EST NAFLD (nonalcoholic fatty liver disease) Cirrhosis of liver without ascites, unspecified hepatic cirrhosis type COMPREHENSIVE METABOLIC PANEL Routine 02/15/2016 1:48 PM EST NAFLD (nonalcoholic fatty liver disease) Cirrhosis of liver without ascites, unspecified hepatic cirrhosis type documented in this encounter Results * Differential, Automated (02/15/2016 1:48 PM EST) Neutrophil % 58.4 % [facility] Neutrophil Absolute 3.07 1.70 - 6.10 x10(3)/[facility] Lymph % 30.9 % [facility] Lymphocytes Abs 1.6 0.9 - 3.2 x10(3)/[facility] Monocyte % 8.8 % [facility] Monocyte Abs 0.5 0.3 - 0.9 x10(3)/[facility] Eos % 1.3 % [facility] Eosinophils Abs 0.1 0.0 - 0.4 x10(3)/[facility] Basophil % 0.4 % [facility] Baso Absolute 0.0 0.0 - 0.1 x10(3)/[facility] Immature Gran % 0.20 % [facility] Comment: Immature granulocytes(IG's)percentage and absolute count will include metamyelocytes, myelocytes, and promyelocytes. Blood smears from CBCs yielding IG's will be scanned manually for concordance. If this scan disagrees with the automated IG or if promyelocytes are noted, a manual differential will be performed. Immature Gran Absolute 0.01 0.00 - 0.04 x10(3)/[facility] Blood specimen (specimen) 02/15/2016 1:48 PM EST 02/15/2016 1:52 PM EST Narrative Resulting Agency Comment Spec In Lab Irwin Rock MD HEMATOLOGY ORDERABL ES [facility] [place] [address] * (ABNORMAL) Hemogram (02/15/2016 1:48 PM EST) White Blood Cell 5.2 4.0 - 9.5 x10(3)/[facility] Red Blood Cell 4.56 4.00 - 5.21 x10(6)/[facility] Hemoglobin 13.8 11.7 - 15.5 gm/dL [facility] Hematocrit 41.2 35.7 - 45.8 % [facility] Mean Cell Volume 90.4 82.6 - 94.4 fL [facility] Mean Cell Hemoglobin 30.3 27.1 - 32.0 pg [facility] Mean Cell Hemoglobin Concentration 33.5 31.7 - 35.0 gm/dL [facility] Platelet 143(L) 145 - 357 x10(3)/ L [facility] RDW Standard Deviation 41.3 37.0 - 46.0 fL [facility] RDW coefficient of variation 12.5 11.5 - 14.1 % [facility] Mean Platelet Volume 11.1 7.6 - 12.9 fL [facility] NRBC% auto 0.0 % [facility] NRBC Absolute 0.000 0.000 - 0.000 x10(3)/mc L [facility] Blood specimen (specimen) 02/15/2016 1:48 PM EST 02/15/2016 1:52 PM EST Narrative Resulting Agency Comment Spec In Lab Irwin Rock MD HEMATOLOGY ORDERABL ES Performing Organization Address [facility] de Phone Number [facility] [place] [address] * Prothrombin Time (02/15/2016 1:48 PM EST) Prothrombin Time 13.4 12.0 - 15.0 sec [facility] Comment: [...] International Normalization Ratio 1.0 0.9 - 1.1 [facility] Blood specimen (specimen) 02/15/2016 1:48 PM EST 02/15/2016 1:52 PM EST Narrative Resulting Agency Comment Spec In Lab Irwin Rock MD HEMATOLOGY ORDERABL ES Performing Organization Address [facility] Co de Phone Number [facility] [place] [address] * (ABNORMAL) Comprehensive metabolic panel (non-fasting) (02/15/2016 1:48 PM EST) Glucose 205(H) 65 - 199 mg/dL [facility] Comment:Diabetes: >=200 mg/d L plus symptoms Blood Urea Nitrogen 15 8 - 18 mg/dL [facility] Creatinine 0.90 0.70 - 1.20 mg/dL [facility] Comment: Please note that the pediatric reference intervals supplied above were not validated at [facility]. Results from pediatric patients should be interpreted in conjunction to the patient's age, height and muscle mass. Sodium 141 135 - 145 mmol/L [facility] Potassium 4.0 3.5 - 5.0 mmol/L [facility] Comment: Please note: ??Patients with WBC >100,000 may have falsely elevated Potassium levels. ??For accurate Potassium quantification in these patients send serum separator tube (gold top) for subsequent determinations. ??Contact the Clinical Chemistry Laboratory if there are any questions. Chloride 98 98 - 107 mmol/L [facility] Carbon Dioxide 29 22 - 31 mmol/L [facility] Anion Gap 14 5 - 15 mmol/L [facility] Calcium 10.5 8.5 - 10.5 mg/dL [facility] Protein, Total 7.1 6.1 - 8.0 gm/dL [facility] Albumin 4.7 3.2 - 5.2 gm/dL [facility] Aspartate Aminotransferase 37(H) 0 - 30 unit/L [facility] Alanine Aminotransferase 31(H) 0 - 30 unit/L [facility] Alkaline Phosphatase 44 40 - 104 unit/L [facility] Bilirubin, Total 0.5 0.2 - 1.3 mg/dL [facility] Bilirubin, Direct 0.2 0.0 - 0.3 mg/dL [facility] Est Glomerular Filtration Rate >60 >=60 [facility] Comment: This estimated GFR (eGFR) value [...] the following links into your internet browser. [email or web address] Blood specimen (specimen) 02/15/2016 1:48 PM EST 02/15/2016 1:52 PM EST Narrative Resulting Agency Comment Spec In Lab Irwin Rock MD CHEMISTRY ORDERABLE S [facility] [place] [id number] documented in this encounter Visit Diagnoses Diagnosis NAFLD (nonalcoholic fatty liver disease) Other chronic nonalcoholic liver disease Cirrhosis of liver without ascites, unspecified hepatic cirrhosis type documented in this encounter Care Teams Epic Prelude Analyst Relationship Specialty Start Date End Date Salome Mcarthur APRN [address] [place] [address] PCP - General Family Medicine 05/30/15 documented as of this encounter
--- OUTSIDE RECORDS SUMMARY | 2023-12-02 18:37 | XMS_ITS | Encounter Summary ---
Author Organization [facility] [place] [address] Care Team Providers Care Egg Grader Name Role Phone Salome Lopez APRN Primary Care Provider [phone] Reason for Visit * Reason Comments Follow-up Encounter Details Date Type Department Care Team (Late st Contact Info) Description 07/22/2015 10:00 AM EDT Office [place] [phone] Molly Wallis APRN [facility] [place] [address] NAFLD (nonalcoholic fatty liver disease) Social History [...] Sign Reading Time Taken Comments Blood Pressure 133/74 07/22/2015 9:50 AM EDT Pulse 95 07/22/2015 9:50 AM EDT Temperature - - Respiratory Rate - - Oxygen Saturation - - Inhaled Oxygen Concentration - - Weight 67.1 kg (148 lb) 07/22/2015 9:50 AM EDT Weighed with shoes. 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 year old female who was first seen one month ago and diagnosed with BA cirrhosis. She knew she has fatty liver but her diagnosis of cirrhosis was new. She states that she didn't have any questions when she was first diagnosed, but now she wants to know how far along she is. She has had an ultrasound and an upper endoscopy since her last visit. She and her were trying to walk a mile every day, but they stopped when the got some more snow. Now that the weather is warming up they are planning on walking again. PAST MEDICAL/SURGICAL HISTORY 1. 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 Fibroscan 06/28/15: 28.4 kPa; 6% IQR; 100% success rate, F4 ?? Risk factors: diabetes, hyperlipidemia, HTN, overweight. Strong family hx of BA cirrhosis. ?? Ultrasound 07/22/2015: no lesions ?? EGD 07/14/2015: no varices, gastric ulcers (2). 2 Diabetes 3. Hypertension 4. Elevated cholesterol MEDICATIONS Outpatient Prescriptions Marked as Taking for the 07/22/15 encounter (Office Visit) with Molly Wallis APRN Medication Sig Dispense Refill ??? fenofibrate (TRICOR) 145 mg Tablet ??? nystatin (MYCOSTATIN) 100,000 unit/mL Suspension 0 ??? clonazePAM (KLONOPIN) 0.5 mg Tablet ??? gabapentin (NEURONTIN) 600 mg tablet Take [...] Take 100 mg by mouth as needed. ??? [place]-3 Fatty Acids-Vitamin E (FISH OIL) 1,000 mg Cap Take 3,000 mg by mouth daily. ??? multivitamin (THERAGRAN) tablet Take 1 tablet by mouth daily. ??? amitriptyline (ELAVIL) 50 mg tablet Take 50 mg by mouth nightly. ??? docusate sodium (COLACE) 100 mg capsule Current Facility-Administered Medications for the 07/22/15 encounter (Office Visit) with Molly Wallis APRN [...] liver. Mother of liver disease. Her sister is followed here for BA cirrhosis and is considering transplant. Cancer (bladder cancer in pt), brother with lung cancer and throat cancer. Daughter had ovarian cancer Dad at age 29 of acute hepatitis PHYSICAL EXAM Filed Vitals: 07/22/15 0950 BP: 133/74 Pulse: 95 Height: 154.9 cm (5' 1) Weight: 67.132 kg (148 lb) Body mass index is 27.98 kg/(m^2). Gen: Well appearing, no apparent distress. Skin: no spider angiomata, no palmar erythema, no jaundice. HEENT: Sclerae anicteric, pupils equal, round, react to light. Pharynx unremarkable. Neck is supple, no adenopathy, no thyromegaly. Extremities: No edema. Neuro: alert and oriented x3, no asterixis or tremor. Outside Labs 05/30/15: AST: 39 ALT: 56 Tbili: 0.38 Albumin: 4.4 Total protein: 7.5 Alk phos: 55 Sodium: 141 Potassium: 4.0 Creatinine: 0.87 BUN: 23 Glucose: 120 Lab Results Component Value Date WBC 8.2 06/28/2015 HGB 14.4 06/28/2015 HCT 42.0 06/28/2015 MCV 91.9 06/28/2015 PLATELET 168 06/28/2015 EGD 07/14/2015: Findings: ?The Z-line was irregular with two small salmon ?coloured island. This was biopsied with a cold ?forceps for histology. ?The exam of the esophagus was otherwise normal. No ?varices. ?Two non-bleeding superficial gastric ulcers were ?found in the gastric antrum. ?Hematin (altered blood/mysars-nexley-eycf material) ?was found in the gastric body. No active bleeding ?seen. ?The exam of the stomach was otherwise normal. ?The duodenal bulb, first part of the duodenum, 2nd ?part of the duodenum and 3rd part of the duodenum ?were normal. ? Impression: ?- Irregular z line. Biopsied. ?- Gastric ulcers. Biopsied. ?- Normal duodenum Recommendation: ?Avoid NSAIDs ?OK to use Tylenol up to 2grams if ?needed ?Consider adding anti-reflux ?medication (after biopsy results) Ultrasound 07/21/2014: Ultrasound - Abdomen Complete - Summary ??Moderate to severe hepatomegaly with coarse parenchymal ??echotexture and capsular nodularity which is consistent with ??cirrhotic change. No focal hepatic masses seen. ??The spleen is enlarged but contains several punctate echogenic ??foci which could represent prior granulomatous disease. ??The right kidney is normal in size and echotexture. ??Appears slightly enlarged and echogenic ??Ultrasound - Vascular evaluation - Summary ??The hepatic veins, portal veins, and hepatic artery are patent with ??normal directional flow. The hepatic artery demonstrates a ??resistive index of 0.73, and an RI greater than 0.7 can be seen in ??cirrhosis. ASSESSMENT/PLAN Milka Corbett is a 75 y.o. 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 Her metabolic risks include diabetes, hypertension, elevated cholesterol, overweight. In addition she has a strong family history of cirrhosis, likely due to BA. 1. Cirrhosis. Diagnosed by fibroscan. Well compensated. Unable to calculate MELD (no INR) but normal Creatinine and total bilirubin. No signs of encephalopathy or ascites. We discussed that since sheis well compensated and has no varices or ascites her risk of at 1 year is very low (1%). 2. BA. WE discussed that 5-10% weight loss can cause fat to come out of the liver and can cause fibrosis to go down. She is committed to losing 7-15 lbs and plans to walk her dog more and not bringunhealthy snacks into the house. There is no reason for her to [...] Wallis APRN Section of Gastroenterology [place] [address] Copy: SALOME LOPEZ APRN [address] [facility] [place] [address] 25 of this 30 minute visit in face to face discussion regarding disease, prognosis and treatment documented in this encounter Plan of Treatment Upcoming Encounters Date Type Department Care Team (Late st Contact Info) Description 02/06/2024 11:30 AM EDT Appoint[place] [phone] Molly Wallis APRN [facility] [place] [address] 02/06/2024 12:15 PM EDT Laboratory Appointment Lab [address] [place] [phone] 02/06/2024 1:30 PM EDT Office [place] [phone] Molly Wallis APRN [facility] [place] [address] documented as of this encounter Visit Diagnoses Diagnosis NAFLD (nonalcoholic fatty liver disease) Other chronic nonalcoholic liver disease documented in this encounter Care Teams Egg Grader Relationship Specialty Start Date End Date Salome Lopez APRN [address] [place] [address] PCP - General Family Medicine 05/30/15 documented as of this encounter
--- OUTSIDE RECORDS SUMMARY | 2023-12-02 18:37 | XMS_ITS | Encounter Summary ---
Author Organization [facility] Address [address] [place] [address] Care Team Providers Care Director Of Student Life Name Role Phone Salome Mcarthur [employer] Primary Care Provider [phone] Reason for Visit * Reason Comments Rash Encounter Details Date Type Department Care Team (Late st Contact Info) Description 11/03/2023 9:30 EDT Walk-In [address] [id number] Jess Ferguson NP [address] [facility] [address] [place] [address] Intertrigo (Primary Dx) Social History Tobacco Use Types [...] Sign Reading Time Taken Comments Blood Pressure 98/52 11/03/2023 0915 EDT Pulse 71 11/03/2023 0915 EDT Temperature 36.1 ??C (96.9 ??F) 11/03/2023 0915 EDT Respiratory Rate 16 11/03/2023 0915 EDT Oxygen Saturation 98% 11/03/2023 0915 EDT Inhaled Oxygen Concentration - - Weight [...] this encounter Patient Instructions * Patient Instructions* Jess Ferguson NP - 11/03/2023 9:30 EDT Milka, I can understand why your doctor started you on the steroids, but it does not appear that they are helping, and your symptoms are worsening. It is possible that this is a fungal infection, so I am stopping the steroid, and placing you on a topical fungal treatment. Also, it does appear that you mayhave some bacteria that has gotten into the open areas, so I am starting you on a course of antibiotics. I want you to try to make sure that you give yourself some time to air out your vagina when you are able, and be very gentle when you are washing or wiping. Please use the cream for up to 2 weeks, but if you are not improving during that time or are worsening, then you must be reevaluated either here or through your primary care provider. documented in this encounter Ordered Prescriptions Prescription Sig Dispensed Refills Start Date End Da te clotrimazole (LOTRIMIN) 1 % creamIndications:Inter dinora Apply 1 application topically to affected area 2 times daily. 60 g 1 11/03/2023 cephalexin (KEFLEX) 500 mg capsuleIndications:Int ertrigo Take 1 Capsule by mouth 3 times daily for 7 days. 21 Capsule 11/03/2023 11/10/2023 documented in this encounter Progress Notes * Caryn Jacobsen MA - 11/03/2023 0930 EDT Patient here with a rash in groin/vaginal area it is itchy, sore, and swollen started 3 weeks ago. Has tried Clobetasol ointment without relief. * Marty Jess Steven, JEIMY - 11/03/2023 3761 EDT [facility] Express [facility] Chief Complaint(s): Chief Complaint Patient presents with Rash Assessment & Plan: 1. Intertrigo clotrimazole (LOTRIMIN) 1 % cream cephalexin (KEFLEX) 500 mg capsule New Prescriptions CEPHALEXIN (KEFLEX) 500 MG CAPSULE Take 1 Capsule by mouth 3 times daily for 7 days. CLOTRIMAZOLE (LOTRIMIN) 1 % CREAM Apply 1 application topically to affected area 2 times daily. 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, which is a reasonable diagnosis given visible hypopigmentation, but patient symptoms are worsening, and given surrounding erythematous scaly rash, will initiate treatment for intertrigo with clotrimazole, advised patient to stop clobetasol - Given that some areas are impetiginized, will initiate patient on a course of Keflex for 7 days - Discussed with patient to pat dry and wipe gently, do not leave area wet, and try not to scratch the area - Have some time with open air if possible in this area - Reviewed with patient that she should be improving within a 2-week period, and if she does not improve or if her symptoms worsen, then she must be reevaluated either here or by her primary care provider HPI: - Has had a rash to her vagina for 3 weeks - Has been on clobetasol by her primary care provider - Not helping, is getting somewhat worse - Is itchy somewhat, irritated - Sometimes a little bit of bleeding, hurts when she wipes - No vaginal discharge - Watching her sugars, has lost weight Rash Pertinent negatives include no cough or fever. ROS: Review of Systems Constitutional: Negative for chills and fever. Respiratory: Negative for cough. Cardiovascular: Negative for chest pain. Genitourinary: + vaginal rash Skin: Positive for rash. Neurological: Negative for dizziness and headaches. Objective: Vitals and nursing notes reviewed Examination: BP 98/52 Pulse 71 Temp 36.1 ??C (96.9 ??F) Resp 16 SpO2 98% Physical Exam Vitals reviewed. Constitutional: General: She is not in acute distress. Appearance: Normal appearance. She is not ill-appearing or toxic-appearing. HENT: Head: Normocephalic and atraumatic. Pulmonary: Effort: Pulmonary effort is normal. No respiratory distress. Musculoskeletal: General: Normal range of motion. Skin: General: Skin is warm and dry. Comments: Some hypopigmentation to vagina with scaly, erythematous rash surrounding with some yellow crusting, small open areas visible Neurological: General: No focal deficit present. Mental Status: She is alert and oriented to person, place, and time. Mental status is at baseline. Psychiatric: Mood and Affect: Mood normal. Behavior: Behavior normal. Thought Content: Thought content normal. Judgment: Judgment normal. Data reviewed with patient (current and past results): An appropriate medical screening examination was performed. The patient was assessed prior to discharge and deemed stable for discharge home. This note may be in part documented using voice dictation software. Please forgive any errors or omissions that may result from use of dictation. documented in this encounter Plan of Treatment Not on file documented as of this encounter Visit Diagnoses Diagnosis Intertrigo- Primary Other specified erythematous condition documented in this encounter Historical Medications * This list may reflect changes made after this encounter. Medication Sig Dispensed Refills Start Date End Date metoprolol SUCCinate (TOPROL-XL) 50 mg tablet Take 1 Tablet by mouth daily. traZODone (DESYREL) 50 mg tablet TAKE 1-2 TABLETs BY MOUTH EVERY DAY nitroglycerin (NITROSTAT) 0.4 mg SL tablet DIRECTED DISSOLVE UNDER THE TONGUE NEEDED isosorbide MONOnitrate (IMDUR) 30 mg CR tablet Take 1 tablet every day by oral route in the morning. clobetasoL (TEMOVATE) 0.05 % cream 10/18/2023 carvediloL (COREG) 6.25 mg tablet Take 1 Tablet by mouth 2 times daily. 08/09/2023 lancets (SparkLixUCH DELICA PLUS LANCET) 30 gauge misc USE 1 LANCET THREE TIMES A DAY DIRECTED blood glucose meter (ONETOUCH ULTRA2 METER) Use 1 unit as directed three times a day to check blood glucose blood glucose (ONETOUCH ULTRA TEST) test strips USE 1 STRIP VIA METER THREE TIMES A DAY DIRECTED insulin pen needles 32G x 5/32 (JULIA PEN NEEDLE) Use 1 needle subcutaneously twice a day saliva substitute combo no.9 (BIOTENE DRY MOUTH ORAL RINSE) mouthwash USE BY MOUTH DIRECTED THREE TIMES DAILY OR NEEDED FOR DRY MOUTH lisinopriL (PRINIVIL) 10 mg tablet Take 1 Tablet by mouth daily. pramipexole (MIRAPEX) 0.5 mg tablet Take 1 tablet every day by oral route in the evening, for restless leg syndrome. added in this encounter Care Teams Director Of Student Life Relationship Specialty Start Date End Date Salome Mcarthur NP [address] [place] [address] PCP - General 03/14/20 documented as of this encounter
--- OUTSIDE RECORDS SUMMARY | 2023-12-02 18:37 | XMS_ITS | Encounter Summary ---
Author Organization [facility] Address [address] [place] [address] Care Team Providers Care Boilermaker Assembly And Erection Name Role Phone Salome Mcarthur CLINICAL ACCOUNT MANAGER Primary Care Provider [phone] Encounter Details Date Type Department Care Team (Late st Contact Info) Description 10/17/2023 Documentation Visit [facility] - [address] [id number] Kal Clark, PT [address] [place], [place] [id number] Social History Tobacco Use Types Packs/Day Years [...] Progress Notes * Kal Clark, PT - 10/17/2023 6527 EDT [facility] [phone] Physical Therapy Discharge Not Seen Recently Medical Diagnosis: 1. Dizziness 2. Unsteadiness on feet. Therapy diagnosis: Dizziness, unsteadiness on feet, insidious onset June or July 2023. Referring Clinician: Aysha Johnson MD Visits: 1 Reporting Period: 09/04 through 09/18/23 Physical Therapy Program to Date: In summary, the program has included: Canalith repositioning and neuromuscular re-education. Goal Review: Short-Term Goals Timeframe: 4 weeks, 10/03/23 Goals: Pt will be able to transition from supine to and from sitting with dizziness no greater than 2/10 to be able to safely get out of bed. -Not assessed Pt will be able to walk distances in her home with dizziness no greater than 2/10 to be able to decrease her fall risk. -Not assessed Pt will demonstrate an improvement in her 4 stage balance test to complete stage III bilaterally kavin able to decrease her fall risk and ambulate safely. -Not assessed Long-Term Goals Timeframe: 8 weeks, 10/31/23 Goals: Pt will be able to transition from sit to stand and be able to bend forward with dizziness no greater than 2/10 to be able to safely get out of bed. -Not assessed 2. Pt will be able to walk distances in the community with dizziness no greater than 2/10 and without reaching out to hill or surfaces to be able to ambulate with better steadiness. -Not assessed 3. Pt will demonstrate an improvement in her Functional Gait Assessment scores to 22/30, indicatinglow fall risk and safe to ambulate community distances independently. -Not assessed Discharge Reason: Pt has cancelled her remaining visits and has not returned. Discharge patient at this time; future therapy will require a new physician's referral. documented in this encounter Plan of Treatment Not on file documented as of this encounter Visit Diagnoses Not on filedocumented in this encounter Care Teams Boilermaker Assembly And Erection Relationship Specialty Start Date End Date Salome Mcarthur NP [address] [place] [address] PCP - General 03/14/20 documented as of this encounter
--- OUTSIDE RECORDS SUMMARY | 2023-12-02 18:37 | XMS_ITS | Encounter Summary ---
[facility] [place] [address] Care Team Providers Care Cracker Off Name Role Phone Salome Mcarthur APRN Primary Care Provider [phone] Reason for Visit * Reason Onset Date Comments Cirrhosis 07/27/2015 Encounter Details Date Type Department Care Team (Late Contact Info) Description 07/27/2015 Telephone [place] [phone] Jacque Gale RN Cirrhosis Social History Tobacco Use Types Packs/Day Years [...] Miscellaneous Notes * Telephone Encounter - Molly Cui APRN - 07/27/2015 12:39 PM EDT Spoke with patient, confirmed that the cirrhosis was through her whole liver. She does not have anycomplications of cirrhosis or history of decompensation. * Telephone Encounter - Jacque Gale RN - 07/27/2015 11:44 AM EDT How far along is the cirrhosis? Is it all through my liver? documented in this encounter Plan of Treatment Upcoming Encounters Date Type Department Care Team (Late Contact Info) Description 02/06/2024 11:30 AM EDT Appointment [place] [address] Molly Cui, [facility] [place] [address] 02/06/2024 12:15 PM EDT Laboratory Appointment Lab [address] [place] [phone] 02/06/2024 1:30 PM EDT Office Visit [place] [phone] Molly Cui, [facility] [place] [address] documented as of this encounter Visit Diagnoses Not on filedocumented in this encounter Care Teams Cracker Off Relationship Specialty Start Date End Date Salome Mcarthur, COMPUTER HARDWARE DESIGNER [address] [place] [address] PCP - General Family Medicine 05/30/15 documented as of this encounter
--- OUTSIDE RECORDS SUMMARY | 2023-12-02 18:37 | XMS_ITS | Encounter Summary ---
Author Organization [facility] Address [facility] [place] [address] Care Team Providers Care Measurer Name Role Phone Salome Mcarthur APRN Primary Care Provider [phone] Reason for Visit * Auth/Cert Specialty Diagnoses / Procedures Referred By Jose t Referred To Contact Diagnoses Fatty (change of) liver, not elsewhere classified Unspecified cirrhosis of liver Cirrhosis, varices screening (IVCS) Procedures PRO UPPER GI ENDOSCOPY, DIAGNOSTIC EGD, UPPER GI ENDOSCOPY Referral ID Status Reason Start Date Expiration Date Visits Re quested Visits Authorized [id number] 1 1 Encounter Details Date Type Department Care Team (Late st Contact Info) Description 07/14/2015 2:15 PM EDT - 07/14/2015 2:45 PM EDT Surgery [place] [address] Leticia Ashraf MD [facility] [place] [address] EGD, UPPER GI ENDOSCOPY (WRVU 2.09) Social [...] Sign Reading Time Taken Comments Blood Pressure 164/88 07/14/2015 2:45 PM EDT Pulse 97 07/14/2015 2:45 PM EDT Temperature - - Respiratory Rate 17 07/14/2015 2:45 PM EDT Oxygen Saturation 79% 07/14/2015 2:45 PM EDT Inhaled Oxygen Concentration - - [...] better as expected. Saturday-Saturday Same Day Endo [phone] Otherwise contact [phone] and ask to speak to the flight inspector data processing control clerk Follow-up care is a palomo part of [...] as of this encounter H&P Notes * Andrew Newman - 07/14/2015 2:09 PM EDT Gastroenterology and [...] Electronically signed by: Andrew Newman Gastroenterology Fellow [facility] Pager [phone] 07/14/2015 documented in this encounter Plan of Treatment Upcoming Encounters Date Type Department Care Team (Late st Contact Info) Description 02/06/2024 11:30 AM EDT Appointment [place] [phone] Molly Cui APRN [facility] [place] [address] 02/06/2024 12:15 PM EDT Laboratory Appointment Lab [address] [phone] 02/06/2024 1:30 PM EDT Office Visit [place] [phone] Molly Cui APRN [facility] [place] [place] [address] documented as of this encounter Procedures Procedure [...] Report (07/14/2015 3:04 PM EDT) Final Diagnosis [id number] ? Location: 4T; EA01; A The signing [...] sing: (T1) ??pps 07/18/2015 5:04 PM EDT [facility] GI Biopsy 07/14/2015 3:04 PM EDT 07/14/2015 3:04 PM EDT GI Biopsy 07/14/2015 3:04 PM EDT 07/14/2015 3:04 PM EDT Leticia Ashraf MD PATHOLOGY/CYTOLOGY O RDERADOMINGA [facility] [place] [address] * Specimen to Pathology (surgical or derm) (07/14/2015 3:04 PM EDT) AP Specimen 07/14/2015 3:04 PM EDT 07/14/2015 3:04 PM EDT Narrative [facility] - 07/14/2015 3:04 PM EDT Specimen requisition ordered. ??Separate Pathology report to follow Leticia Ashraf MD PATHOLOGY/CYTOLOGY O RDERABLES Performing Organization Address City/[facility]/ZIP Co de Phone Number [facility] [place] [address] * Specimen to Pathology (surgical or derm) (07/14/2015 3:04 PM EDT) AP Specimen 07/14/2015 3:04 PM EDT 07/14/2015 3:04 PM EDT Narrative [facility] - 07/14/2015 3:04 PM EDT Specimen requisition ordered. ??Separate Pathology report to follow Leticia Ashraf MD PATHOLOGY/CYTOLOGY O RDERADOMINGA Performing Organization Address [facility] Co de Phone Number [facility] [place] [address] * POCT Fingerstick Glucose (07/14/2015 2:32 PM EDT) Glucose, POC 101 60 - 199 mg/dl 07/14/2015 2:32 PM EDT Leticia Ashraf MD POINT OF CARE TEST O RDERABLES * POCT Glucose (07/14/2015 2:29 PM EDT) Glucose, POC 101 65 - 199 mg/dL [facility] Comment: Supplemental ranges: <140 mg/dL before meals <180 mg/dL all other times of the day Blood specimen (specimen) 07/14/2015 2:29 PM EDT 07/14/2015 2:29 PM EDT Leticia Ashraf MD POINT OF CARE TEST O RDERABLES Performing Organization Address City/[facility]/ZIP Co de Phone Number [facility] [place] [address] * UPPER GI ENDOSCOPY (07/14/2015 2:20 PM EDT) UPPER GI ENDOSCOPY [facility] Patient Name: Milka Corbett ? Procedure Date: 07/14/2015 2:20 PM ? N: [id number] ? Date of : 1940 ? Age: 75 ? Order #: [id number] ? Procedure: ? Upper GI endoscopy Indications: ? Screening procedure, Cirrhosis rule ? out esophageal varices Providers: ? Andrew Rodriges, MD, ? Apoorva Beyer, Yaw Boyd, ? RN Referring MD: ?Sophia Mcarthur MD Requesting Provider: Molly Cui [...] PROVATION 07/14/2015 2:20 PM EDT Salome Mcarthur [employer] DERABLES PROVATION documented in this encounter Visit Diagnoses Diagnosis NAFLD (nonalcoholic fatty liver disease) Other chronic nonalcoholic liver disease Cirrhosis of liver without ascites, unspecified hepatic cirrhosis type documented in this encounter Administered Medications Inactive Administered Medications - up to 3 most recent administrations Medication Order MAR Action Action Date Dose Rate Site benzocaine (TOPEX) 20 % oral spray ONCE PRN, Starting on Melissa 07/14/15 at 1435, Until Melissa 07/14/15 at 1526, Intra-Operative (Intra-Procedure) Given 07/14/2015 2:35 PM EDT 6 each fentaNYL 50 mcg/mL multi-dose injection ONCE PRN, Starting on Melissa 07/14/15 at 1435, Until Melissa 07/14/15 at 1526, Intra-Operative (Intra-Procedure), Routine Given 07/14/2015 2:40 PM EDT 50 mcg Right Arm Given 07/14/2015 2:35 PM EDT 50 mcg Ri ght Arm lactated ringers infusion 100 mL/hr, Intravenous, CONTINUOUS, Starting on Melissa 07/14/15 at 1430, Until Melissa 07/14/15 at 1526, Endoscopy (Day of Procedure) New Bag 07/14/2015 2:30 PM EDT 100 mL/hr 100 mL/hr midazolam (PF) (VERSED) 1 mg/mL multi-dose injection ONCE PRN, Starting on Melissa 07/14/15 at 1435, Until Melissa 07/14/15 at 1526, Intra-Operative (Intra-Procedure), Routine Given 07/14/2015 2:40 PM EDT 1 mg Given 07/14/2015 2:35 PM EDT 1 mg documented in this encounter Active and Recently Administered Medications Times are shown in EDT. Continuous Medication Order 07/12/2015 07/13/2015 07/14/2015 lactated ringers infusion (CANCELED) 100 mL/hr, Intravenous, CONTINUOUS, Starting on Melissa 07/14/15 at 1430, Until Melissa 16 at 1526, Endoscopy (Day of Procedure) 1430 [...] injection (CANCELED) ONCE PRN, Starting on Melissa 4 at 1435, Until Melissa 07/14/15 at 1526, [...] time) documented in this encounter Care Teams Measurer Relationship Specialty Start Date End Date Salome Mcarthur APRN [address] [place] [address] PCP - General Family Medicine 05/30/15 documented as of this encounter
--- OUTSIDE RECORDS SUMMARY | 2023-12-02 18:37 | XMS_ITS | Encounter Summary ---
Author Organization [facility] Address [address] [place] [address] Care Team Providers Care Tile Grader Name Role Phone Salome Mcarthur FUNCTIONAL ANALYST Primary Care Provider [phone] Encounter Details Date Type Department Care Team (Late st Contact Info) Description 09/20/2022 Documentation Visit 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 She was called and reported on the phone that her dizziness has been gone since last visit. She feels she does not want any more PT and would like to be discharged. Goal Review: Short-Term Goals Timeframe: 09/27/22, 3 weeks Goals: 1. Pt will be able to bend forward, look up, and get out of bed with dizziness no greater than 2/10to be able to safely transfer out of bed or bend down to pick something up. -MET ?? Long-Term Goals Timeframe: 10/18/22, 6 weeks Goals: 1. Pt will be able to bend forward, look up, and get out of bed without dizziness to be able to safely transfer out of bed or bend down to pick something up. -MET Discharge Reason: Goals have been met Discharge patient at this time; future therapy will require a new physician's referral. documented in this encounter Plan of Treatment Not on file documented as of this encounter Visit Diagnoses Not on filedocumented in this encounter Care Teams Tile Grader Relationship Specialty Start Date End Date Salome Mcarthur, JEIMY [address] [place] [address] PCP - General 03/14/20 documented as of this encounter
--- OUTSIDE RECORDS SUMMARY | 2023-12-02 18:37 | XMS_ITS | Encounter Summary ---
Author Organization [facility] Address [facility] [place] [address] Care Team Providers Care Conservation Science Teacher Name Role Phone Salome Mcarthur APRN Primary Care Provider [phone] Encounter Details Date Type Department Care Team (Late st Contact Info) Description 02/08/2009 Orders [place] [address] Marvin Lord MD [facility] [place] [address] Social History Tobacco Use Types Packs/Day Years Used Date Smoking Tobacco: Never Assessed Sex and Gender Information Value Date Recorded Sex Assigned at Not on file Gender Identity Not on file Sexual Orientation Not on file documented as of this encounter Plan of Treatment Upcoming Encounters Date Type Department Care Team (Late st Contact Info) Description 02/06/2024 11:30 AM EDT Appointment [place] [address] Molly Cui CONTROL AREA OPERATOR [facility] GASTROENTEROLOGY [place], [place] [phone] 02/06/2024 12:15 PM EDT Laboratory Appointment Lab [address] [place] [address] 02/06/2024 1:30 PM EDT Office Visit [place] [address] Molly Cui CONTROL AREA OPERATOR [facility] [place] [address] documented as of this encounter Procedures Procedure Name Priority Date/Time Associated Diagnosis Comments SURGICAL PATHOLOGY REPORT Routine 02/08/2009 7:28 AM EST documented in this encounter Results * Surgical Pathology Report (02/08/2009 7:28 AM EST) Surgical Pathology Report [id number] ? Location: OPW The signing pathologist has (i) examined the relevant preparation(s) for the specimen(s) and (ii) rendered or confirmed the diagnosis(es). . ?Pathology Surgical Pathology Final Report Clinical Information Specimen Submitted: CONSULTATION CASE A - 4 slides labeled [id number], collection date 2008. B - 6 slides labeled [id number], collection date 01/18/2009. [id number] Report to: Anjel De La Torre MD Department of Pathology [facility] [address] [place] [address] ??[id number] Gross Description [facility]'s pathology slide(s) are reviewed. ??Refer to Diagnosis and Specimen Submitted for specific case information. For the full text of the [facility] report(s) please refer to Non- Documentation Pathology in the Clinical Information System (CIS). Microscopic Description Slides reviewed, microscopic description not recorded. Diagnosis CONSULTATION CASE A - Outside slides labeled [id number], collection date 2008: ?1. 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 ?There is no evidence of dysplasia. ?2. ??Urinary bladder, inferior to main tumor, biopsy: ?Urothelial mucosa with chronic inflammation and reactive atypia. ?There is no evidence of dysplasia. B - Outside slides labeled [id number], collection date 01/18/2009: ?1. ??Bladder, left dome, biopsy: ?Non-invasive urothelial papillary carcinoma, low grade. ?Muscularis propria is not identified. ?2. ??Bladder, mid dome, biopsy: ?Non-invasive urothelial papillary carcinoma, low grade. ?Muscularis propria is not identified. ?3. ??Bladder, right dome, biopsy: ?Minute fragment of atypical urothelial mucosa. . Diagnosis CR-0 02/09/09 JLK 02/11/09 Verified by: ? Luke Saldana MD ?Pathologist ?(Electronic Signature) The attending pathologist whose signature appears on this report has reviewed all diagnostic slides and has edited the gross and/or microscopic portion of the report in rendering the final pathologic diagnosis. JORY [facility]FIELD 02/08/2009 7:28 AM EST Marvin Lord MD PATHOLOGY/CYTOLOGY O RDERABLES Performing Organization Address City/State/[facility] Co de Phone Number [facility] documented in this encounter Visit Diagnoses Not on filedocumented in this encounter Care Teams Conservation Science Teacher Relationship Specialty Start Date End Date Salome Mcarthur APRN [address] [place] [address] PCP - General Family Medicine 05/30/15 documented as of this encounter
--- OUTSIDE RECORDS SUMMARY | 2023-12-02 18:37 | XMS_ITS | Referral Summary ---
Author Organization [facility] Address [address] [place] [address] Care Team Providers Care Shipping Clerk Packing Name Role Phone Salome Mcarthur SPEECH LANG PATH THERAPIST Primary Care Provider [phone] Encounters Date Type Department Care Team Description 11/03/2023 9:30 EDT Walk-In [facility] [address] [place], [place] [phone] Jess Ferguson NP Intertrigo (Primary Dx) 10/25/2023 Lab Requisition [facility] Pathology & Laboratory Medicine - [address] [address] Outr Resulting Lab, Provider 10/17/2023 Documentation Visit [address] [phone] Kal Clark, PT 09/05/2023 Plan of Care Documentation [address] [phone] from Last 3 Months Allergies Active Allergy Reactions Criticality Noted Date Comments Dale Inhibitors Cough 03/09/2009 Atenolol Cough 03/09/2009 Sulfamethoxazole-Trimeth oprim Rash 03/09/2009 Codeine Itching,Other (See Comments) 03/09/2009 paranoia Hydromorphone (Bulk) Itching 08/31/2011 Facial itiching Dulaglutide Nausea And Vomiting Medium 11/03/2023 Erythromycin Other (See Comments) 03/09/2009 GI Upset Latex, Natural Rubber Itching 08/21/2011 Meperidine Other (See Comments) Medium 02/16/2014 Simvastatin Nausea Only Medium 02/16/2014 Medications Medication Sig Dispensed Refills Start Date End Date Status BUTALBITAL/ASPIRI N/CAFFEINE (FIORINAL ORAL) Take by mouth 2 times daily as needed. Active MULTIVITAMINS (MULTIVITAMIN ORAL) Take 1 Tab by mouth daily before breakfast. Active lisinopril (PRINIVIL, ZESTRIL) 10 mg tablet Take 1 Tab by mouth daily. 90 Tab 4 06/06/2009 Active Additional Information Patient not taking.Reported on 11/03/2023 clonazepam (KLONOPIN) 0.5 mg tablet Take 1 Tab by mouth at bedtime. 90 Tab 4 06/06/2009 Active Additional Information Patient not taking.Reported on 03/16/2020 [place]-3 Fatty Acids-Vitamin E (FISH OIL) 1,000 mg Cap Take by mouth daily. Acti ve metformin (GLUCOPHAGE) 1,000 mg tablet Take 1 Tablet by mouth 2 times daily with breakfast and dinner. Active fexofenadine (JESÚS) 60 mg tablet Take 180 mg by mouth daily. Active acetaminophen (TYLENOL) 650 mg tablet Take 1 Tab by mouth every 6 hours as needed for Pain. 08/22/2011 Active docusate sodium (COLACE) 100 mg capsule Take 1 Cap by mouth 2 times daily. 08/22/2011 Active mupirocin (BACTROBAN) 2 % ointment Apply topically to affected area 2 times daily. 22 g 3 03/16/2020 Active Additional Information Patient not taking.Reported on 08/04/2023 fluconazole (DIFLUCAN) 150 mg tablet Take 1 Tab by mouth every 72 hours. Until symptom free. Take as soon as symptoms begin 3 Tab 03/16/2020 Active Additional Information Patient not taking.Reported on 08/04/2023 albuterol 90 mcg/actuation inhaler Inhale 2 puff using inhaler every four to six hours as needed Active atorvastatin (LIPITOR) 20 mg tablet TAKE 1 TABLET BY MOUTH AT NIGHT Active [place]am LiveTOUCH ULTRA TEST test strips USE 1 STRIP VIA METER THREE TIMES A DAY DIRECTED 09/11/2022 Active ONETOUCH ULTRA2 METER 02/07/2023 Active d-mannose 500 mg capsule daily. Active VICTOZA 2-CHIDI 0.6 mg/0.1 mL (18 mg/3 mL) injectable pen Inject 1.8mg subcutaneously every day 07/15/2023 Active metoprolol SUCCinate (TOPROL-XL) 25 mg tablet Take 1.5 Tablets by mouth daily. Active omeprazole (PRILOSEC) 40 mg capsule Take 1 capsule by mouth once a day 04/29/2023 Active pramipexole (MIRAPEX) 0.125 mg tablet TAKE 3 TABLETS BY MOUTH AT NIGHT Active BIOTENE DRY MOUTH ORAL RINSE mouthwash USE BY MOUTH DIRECTED THREE TIMES DAILY OR NEEDED FOR DRY MOUTH 07/12/2023 Active amitriptyline (ELAVIL) 50 mg tablet TAKE 1 TABLET BY MOUTH EVERY NIGHT Active gabapentin (NEURONTIN) 600 mg tablet Take 1 Tablet by mouth 2 times daily. Active pramipexole (MIRAPEX) 0.5 mg tablet Take 1 tablet every day by oral route in the evening, for restless leg syndrome. Active lisinopriL (PRINIVIL) 10 mg tablet Take 1 Tablet by mouth daily. Active saliva substitute combo no.9 (BIOTENE DRY MOUTH ORAL RINSE) mouthwash USE BY MOUTH DIRECTED THREE TIMES DAILY OR NEEDED FOR DRY MOUTH Active insulin pen needles 32G x 5/32 (JULIA PEN NEEDLE) Use 1 needle subcutaneously twice a day Active blood glucose (ONETOUCH ULTRA TEST) test strips USE 1 STRIP VIA METER THREE TIMES A DAY DIRECTED Active blood glucose meter (ONETOUCH ULTRA2 METER) Use 1 unit as directed three times a day to check blood glucose Active lancets (ONETOUCH DELICA PLUS LANCET) 30 gauge misc USE 1 LANCET THREE TIMES A DAY DIRECTED Active carvediloL (COREG) 6.25 mg tablet Take 1 Tablet by mouth 2 times daily. 08/09/2023 Active clobetasoL (TEMOVATE) 0.05 % cream 10/18/2023 Active isosorbide MONOnitrate (IMDUR) 30 mg CR tablet Take 1 tablet every day by oral route in the morning. Active nitroglycerin (NITROSTAT) 0.4 mg SL tablet DIRECTED DISSOLVE UNDER THE TONGUE NEEDED Active traZODone (DESYREL) 50 mg tablet TAKE 1-2 TABLETs BY MOUTH EVERY DAY Active metoprolol SUCCinate (TOPROL-XL) 50 mg tablet Take 1 Tablet by mouth daily. Active clotrimazole (LOTRIMIN) 1 % creamIndications: Intertrigo Apply 1 application topically to affected area 2 times daily. 60 g 1 11/03/2023 Active cephalexin (KEFLEX) 500 mg capsuleIndication s:Intertrigo Take 1 Capsule by mouth 3 times daily for 7 days. 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 Overview: H/o - cxr IBS (irritable bowel syndrome) 03/09/2009 Hyperlipidemia 03/09/2009 Rosacea 03/09/2009 Restless legs syndrome 03/09/2009 Migraine 03/09/2009 Immunizations Name Administration Dates Next Due Influenza (whole) 01/12/2008 Pneumococcal Polysaccharide (PPSV23) Vaccine (PNEUMOVAX-23) =>2YO SQ/IM 07/01/2006,03/11/2001 Td 02/07/1996 Tdap Vaccine =>7YO IM 07/01/2006 Social History Tobacco Use Types Packs/Day Years [...] 14:15 EST Sexual Orientation Not on file Last Filed Vital Signs Vital Sign Reading Time Taken Comments Blood Pressure 98/52 11/03/2023 0915 EDT Pulse 71 11/03/2023 0915 EDT Temperature 36.1 ??C (96.9 ??F) 11/03/2023 0915 EDT Respiratory Rate 16 11/03/2023 0915 EDT Oxygen Saturation 98% 11/03/2023 0915 EDT Inhaled Oxygen Concentration - - Weight 69.2 kg (152 lb 8 oz) 02/24/2013 1250 EST Height 157.5 cm (5' 2) 08/14/2011 1338 EDT Body Mass Index 27.89 08/14/2011 1338 EDT Functional Status Cognitive Status Response Date of Assessm ent Because of a physical, menta l, or emotional condition, do you have serious difficulty concentrating, remembering, or making decisions? (5 years old or older) Yes 08/21/2011 Plan of Treatment Not on file Procedures Procedure Name Priority Date/Time Associated Diagnosis Comments MOLECULAR VAGINITIS/VAGINOSIS ASSAY Routine 10/25/2023 11:00 EDT from Last 3 Months Results * (ABNORMAL) MOLECULAR VAGINITIS/VAGINOSIS ASSAY (10/25/2023 11:00 EDT) Wendy Species Positive(A) Negative 10/26/19 12:46 EDT [facility] Wendy glabrata Positive(A) Negative 10/26/2023 12:46 EDT [facility] Trichomonas Vaginalis Negative Negative 10/26/2023 12:46 EDT [facility] BV (Bacterial vaginosis) Negative Negative 10/26/2023 12:46 EDT [facility] Swab VAGINAL STRUCTURE / Unknown 10/25/2023 11:00 EDT 10/25/2023 22:59 EDT Provider Outr Resulting Lab MICROBIOLOGY - GENERAL ORDERABLES Performing Organization Address City/State/[facility] Co de Phone Number [facility] [address] [place] [address] from Last 3 Months Milka Corbett Personal/Family Self 1940 [address] [facility] [place] [address] Milka Corbett Personal/Family Self 1940 [address] [facility] [place] [address] Milka Corbett Personal/Family Self 1940 [address] [facility] [place] [address] Advance Directives For more information, please contact: [phone] * Full Code (Latest Code Status on File) Date Activated Date Inactivated Comments 08/21/2011 16:46 08/22/2011 17:10 Care Teams Shipping Clerk Packing Relationship Specialty Start Date End Date Salome Mcarthur NP [address] [place] [address] PCP - General 03/14/20
--- OUTSIDE RECORDS SUMMARY | 2023-12-02 18:37 | XMS_ITS | Encounter Summary ---
Author Organization [facility] Address [facility] [place] [address] Care Team Providers Care Cosmetic Sales Advisor Name Role Phone Lizbet Galindo APRN Primary Care Provider + Encounter Details Date Type Department Care Team (Late st Contact Info) Description 10/22/2012 1:45 PM EDT [place] [phone] Sandra Beltrán MD [facility] [place] [address] Mixed incontinence (Primary Dx) Discharge Disposition: Home Social History Tobacco Use [...] Sign Reading Time Taken Comments Blood Pressure 130/70 10/22/2012 1:45 PM EDT Pulse 105 10/22/2012 1:45 PM EDT Temperature - - Respiratory Rate 20 10/22/2012 1:45 PM EDT Oxygen Saturation - - Inhaled Oxygen Concentration - - Weight 70.3 kg (155 lb) 10/22/2012 1:45 PM EDT Height 156.2 cm (5' 1.5) 10/22/2012 1:45 PM EDT Body Mass Index 28.81 10/22/2012 1:45 PM EDT documented in this encounter Patient Instructions * Patient Instructions* Sandra Beltrán MD - 10/22/2012 2:18 PM EDT The patient was advised to do behavioural changes including: Drink 50 - 64 oz of fluid daily - at least 1/2 of this should be water. Stay away from coffee, tea,minal, sports drinks and spicy or acidy foods. Learn to sip, not gulp. Drink water with lemon, suck lemon-sugar free candy, chew sugar free gum. Use bioten or salivert mouth wash, rinses, Timed void - void at least every 2 hr during the day, even if you don't need to go Continue CIC - 1-2 times per day. Return to clinic 6 months. documented in this encounter Progress Notes * Sanrda Beltrán MD - 10/22/2012 2:11 PM EDT Urinary Incontinence Follow -up Reason for Visit: This is a female 72 y.o. seen at the request of LIZBET GALINDO APRN and DR. Boykin with incontinence times 5 or more years She has a history of bladder cancer and had a fascial sling done by Dr. Molina August 2011. She does not think that sling has helped and she may be worse. Her urge is much worse and she wets the bed. She was seen in July and had UDS and had DO and poor emptying. She has been doing CIC bid and had less than 100 so went to qd. She had 100 cc residual in the am and minimal at night. She is veneer drier at night if she doesn't cath. HPI Features of incontinence: The patient leaks with the following stress maneuvers: sneezing and getting out of a chair. She does not leak when coughing , when laughing, when lifting and when straining. The patient has features of urge including: leakage without warning, leakage on the way to the toilet, when full and around water. She does not leak in cold weather. She has 1 uti in August Pad use: Type: she is generally dry by day. She puts a pad on the bed at night. Doesn't wear pads routinely due to yeast infections. Frequency: Every 2 hour(s). Nocturia: x 1 -2 Nocturnal enuresis: no Usual Fluid Intake: Type of Fluid Quantity Consumed Unit Coffee 0 cups per day Tea 1 - 2 cups per day Coke 0-1 cans per day Juice 0 glasses per day Water 2 Qt per day Last UTI: None recently Bowel Problems: normal - bM daily Gyne: G 4 P 4 # 4 Menopause: hysterectomy age 46 , no symptoms. HRT: Yes. - quit 8 - 10 yr ago Physical Exam Pleasant woman in no acute distress. Oriented to Person, place and time. Healthy appearance. Color normal. No significant skin lesions. Abdomen: The abdomen is soft, non-tender, without masses or organomegaly. There is no hepatosplenomegaly. The bladder is not palpable. There is no CV angle tenderness. U/A: negative for RBC, WBC and Nitrates. Impression: Pt with mixed incontinence - She is now reasionably content with her bladder Plan: Continue CIC. Timed voiding q 2 hr. RTC 6 months. documented in this encounter Plan of Treatment Upcoming Encounters Date Type Department Care Team (Late st Contact Info) Description 02/06/2024 11:30 AM EDT [place]oint[place] [phone] Molly Cui, [facility] [place] [address] 02/06/2024 12:15 PM EDT Laboratory Appointment Lab [address] [place] [phone] 02/06/2024 1:30 PM EDT Office [place] [phone] Molly Cui [facility] [place] [address] documented as of this encounter Visit Diagnoses Diagnosis Mixed incontinence- Primary Mixed incontinence urge and stress (male)(female) documented in this encounter Care Teams Cosmetic Sales Advisor Relationship Specialty Start Date End Date Lizbet Galindo APRN PCP - General 06/30/12 05/29/15 documented as of this encounter
--- OUTSIDE RECORDS SUMMARY | 2023-12-02 18:37 | XMS_ITS | Encounter Summary ---
Author Organization [facility] Address [facility] [place] [address] Care Team Providers Care Industrial Cook Name Role Phone Salome Mcarthur APRN Primary Care Provider [phone] Encounter Details Date Type Department Care Team (Latest Contact Info) Description 07/22/2015 8:04 AM EDT - 07/22/2015 11:59 PM EDT Hospital En[place] [phone] Tremaine Nesbitt MD [facility] [place] [address] NAFLD (nonalcoholic fatty liver disease); Cirrhosis of liver without ascites, unspecified hepatic cirrhosis type Discharge Disposition: Home Social History Tobacco Use [...] 02/06/2024 11:30 AM EDT Appointment [place] [phone] Molly Cui [facility] [place] [address] 02/06/2024 12:15 PM EDT Laboratory Appointment Lab [address] [place] [phone] 02/06/2024 1:30 PM EDT Office [place] [phone] Molly Cui [facility] [address] documented as of this encounter Procedures Procedure Name Priority Date/Time Associated Diagnosis Comments US ABDOMEN COMPLETE WITH VASCULAR Routine 07/22/2015 9:26 AM EDT NAFLD (nonalcoholic fatty liver disease) Cirrhosis of liver without ascites, unspecified hepatic cirrhosis type documented in this encounter Results * US Abdomen Complete With Vascular (07/22/2015 9:26 AM EDT) Anatomical Region Laterality Modality Abdomen Ultrasound 07/22/2015 9:18 AM EDT Impressions 07/22/2015 10:01 AM EDT Impression Ultrasound - Abdomen Complete - Summary Moderate to severe hepatomegaly with coarse parenchymal echotexture and capsular nodularity which is consistent with cirrhotic change. No focal hepatic masses seen. The spleen is slightly enlarged and contains several punctate echogenic foci which could represent prior granulomatous disease. The right kidney is normal in size and echotexture. Appears slightly enlarged and echogenic Ultrasound - Vascular evaluation - Summary The hepatic veins, portal veins, and hepatic artery are patent with normal directional flow. The hepatic artery demonstrates a resistive index of 0.73, and an RI greater than 0.7 can be seen in cirrhosis. I ??viewed the images and agree with the above interpretation. is ? Meghan Cardozo MD Electronically Signed Corrected Final Report ??08/03/2015 04:17 pm Narrative 07/22/2015 10:01 AM EDT Abdominal Duplex ?(Corrected Final 08/03/2015 04:17 pm) Patient Info ID #: ? [id number] ? : [birth year] (75 yrs) Name: ? MILKA KIDDIER ? Visit Date:07/22/2015 09:18 am Performed By Performed By: ? Michelle Major RDMS Attending: ?Juliane GALLO, Meghan D. Associate: ?Nila GALLO, Mat Alvarado Referred By: ?TREMAINE NESBITT MD Service(s) Provided ??UABDCVASC - Abdominal Complete Survey with Vascular - 24801, [id number] ??[id number] Indications ??Cirrhosis: survey for hepatocellular carcinoma, ??evaluate for complications of portal hypertension ??including portal vein thrombosis ----- Liver ----- Right Lobe Length: ?? 22.9 ?? cm Echogenicity/Echotexture: ?? Coarse and echogenic parenchyma with ? capsular nodularity Portal Veins: ?Patent Hepatic Veins: ?? Patent Comment: ?Moderate to severe hepatomegaly Gallbladder Comment: ?Surgically removed Biliary Tract Intrahepatic Ducts: ?? Normal Extrahepatic Ducts: ?? Normal Common Duct Size: ? 4.0 ? mm -------- Pancreas -------- Head: ? Normal Tail: ? Poorly visualized due to overlying bowel Body: ? Normal Comment: ?Appears slightly enlarged and echogenic ------ Spleen ------ Size (cm) ? L: 12.6 ?AP: ??6.9 ? TV: ??6.8 Vol (ml): ?309.5 Comment: ?The spleen is slightly enlarged and contains several ? punctate echogenic foci which could represent prior ? granulomatous disease. Right Kidney Size (cm) ? L: 11.1 Cortical Thickness: ?Normal Cortical Echogenicity: ?? Normal Hydronephrosis: ?No sonographic evidence Comment: ?Few echogenic foci possibly representing prior ? granulomatous disease Left Kidney Size (cm) ? L: 10.4 Cortical Thickness: ?Normal Cortical Echogenicity: ?? Normal Hydronephrosis: ?No sonographic evidence ----- Aorta ----- Measurements (cm): Proximal ?AP: ??1.8 Mid ? AP: ??1.9 Distal ?AP: ??1.3 Rt Iliac ?AP: ??0.8 Lt Iliac ?AP: ??0.9 Comment: ?Normal in caliber --- IVC --- Proximal portion, normal in caliber Fluid Collections No ascites seen. Hepatic-Portal Duplex ? PSV ? EDV ? RI ??Waveform ? (cm/s) ??(cm/s) Hepatic Artery: ?? 47.1 ?12.8 ?0.73 ??Patent Right Hepatic ? Patent Vein: Middle Hepatic ?Patent Vein: Left Hepatic ?Patent Vein: Main Portal ? 18.5 ?Hepatopetal Vein: Right Portal ?Patent Vein: Left Portal Vein: ? Patent Collaterals: ??None Procedure Note Meghan Cardozo MD - 08/03/2015 Abdominal Duplex (Corrected Final 08/03/2015 04:17pm) Patient Info ID #: [id number] : 42 (75 yrs) Name: MILKA MENDIETA Visit Date:07/22/2015 09:18 am Performed By Performed By: Michelle Major RDMS Attending: Meghan Cardozo MD Associate: Mat Dotson MD Referred By: TREMAINE NESBITT MD Service(s) Provided UABDCVASC - Abdominal Complete Survey with Vascular - 69710, [id number] Indications Cirrhosis: survey for hepatocellular carcinoma, evaluate for complications of portal hypertension including portal vein thrombosis ----- Liver ----- Right Lobe Length: 22.9 cm Echogenicity/Echotexture: Coarse and echogenic parenchyma with capsular nodularity Portal Veins: Patent Hepatic Veins: Patent Comment: Moderate to severe hepatomegaly Gallbladder Comment: Surgically removed Biliary Tract Intrahepatic Ducts: Normal Extrahepatic Ducts: Normal Common Duct Size: 4.0 mm -------- Pancreas -------- Head: Normal Tail: Poorly visualized due to overlying bowel Body: Normal Comment: Appears slightly enlarged and echogenic ------ Spleen ------ Size (cm) L: 12.6 AP: 6.9 TV: 6.8 Vol (ml): 309.5 Comment: The spleen is slightly enlarged and contains several punctate echogenic foci which could represent prior granulomatous disease. Right Kidney Size (cm) L: 11.1 Cortical Thickness: Normal Cortical Echogenicity: Normal Hydronephrosis: No sonographic evidence Comment: Few echogenic foci possibly representing prior granulomatous disease Left Kidney Size (cm) L: 10.4 Cortical Thickness: Normal Cortical Echogenicity: Normal Hydronephrosis: No sonographic evidence ----- Aorta ----- Measurements (cm): Proximal AP: 1.8 Mid AP: 1.9 Distal AP: 1.3 Rt Iliac AP: 0.8 Lt Iliac AP: 0.9 Comment: Normal in caliber --- IVC --- Proximal portion, normal in caliber Fluid Collections No ascites seen. Hepatic-Portal Duplex PSV EDV RI Waveform (cm/s) (cm/s) Hepatic Artery: 47.1 12.8 0.73 Patent Right Hepatic Patent Vein: Middle Hepatic Patent Vein: Left Hepatic Patent Vein: Main Portal 18.5 Hepatopetal Vein: Right Portal Patent Vein: Left Portal Vein: Patent Collaterals: None IMPRESSION Impression Ultrasound - Abdomen Complete - Summary Moderate to severe hepatomegaly with coarse parenchymal echotexture and capsular nodularity which is consistent with cirrhotic change. No focal hepatic masses seen. The spleen is slightly enlarged and contains several punctate echogenic foci which could represent prior granulomatous disease. The right kidney is normal in size and echotexture. Appears slightly enlarged and echogenic Ultrasound - Vascular evaluation - Summary The hepatic veins, portal veins, and hepatic artery are patent with normal directional flow. The hepatic artery demonstrates a resistive index of 0.73, and an RI greater than 0.7 can be seen in cirrhosis. I viewed the images and agree with the above interpretation. is Meghan Cardozo MD Electronically Signed Corrected Final Report 08/03/2015 04:17 pm Tremaine Nesbitt MD IMG US GEN ORDERABL ES documented in this encounter Visit Diagnoses Diagnosis NAFLD (nonalcoholic fatty liver disease) Other chronic nonalcoholic liver disease Cirrhosis of liver without ascites, unspecified hepatic cirrhosis type documented in this encounter Care Teams Industrial Cook Relationship Specialty Start Date End Date Salome Mcarthur, [address] [place] [address] PCP - General Family Medicine 05/30/15 documented as of this encounter
--- OUTSIDE RECORDS SUMMARY | 2023-12-02 18:37 | XMS_ITS | Encounter Summary ---
Author Organization [facility] Address [address] [place] [address] Care Team Providers Care Executive Sous Chef Name Role Phone Salome Mcarthur TRUCK HEADLIGHT ASSEMBLER Primary Care Provider [phone] Encounter Details Date Type Department Care Team (Late st Contact Info) Description 10/27/2020 Lab Requisition [facility] Pathology & Laboratory Medicine - [address] [address] Outr Resulting Lab, Provider Social History Tobacco [...] Procedure Name Priority Date/Time Associated Diagnosis Comments ZZCOVID-19 TEST [facility] PCR Today 10/27/2020 10:45 EDT COVID-19 TESTING Routine 10/27/2020 10:4 5 EDT documented in this encounter Results * COVID-19 TEST [facility] PCR (10/27/2020 10:45 EDT) Swab ENTIRE NASOPHARYNX / Unknown 10/27/2020 10:45 EDT 10/28/2020 15:54 EDT Provider Outr Resulting Lab MICROBIOLOGY - GENERAL ORDERABLES Performing Organization Address City/[facility]/ZIP Co de Phone Number [facility] [address] [place] [address] * COVID-19 TESTING (10/27/2020 10:45 EDT) COVID-19 rt-PCR Result Negative Negative 10/29/2020 12:56 EDT [facility] Comment: This test has not been FDA cleared or approved. This test has been authorized by FDA under an EUA for use by authorized laboratories. This test has been authorized only for detection of nucleic acid from 2019-nCoV, not for any other viruses or pathogens. This test is only authorized for the duration of the declaration that circumstances exist justifying the authorization of emergency use of in vitro diagnostic tests for detection and/or diagnosis of 2019-nCoV under section 564(b)(1) of Act, 21 U.S.C ?? 360bbb-3(b) (1), unless the authorization is terminated or revoked sooner. Negative results do not preclude 2019-nCoV infection and should not be used as the sole basis for treatment or other patient management decisions. Negative results must be combined with clinical observations, patient history, and epidemiological information. Testing was performed using the damaso SARS-CoV-2 assay ([employer] on the Damaso 6800 System Performing Lab [employer] [address] [facility] 10/29/2020 12:56 EDT [facility] Swab 10/27/2020 10:4 5 EDT 10/28/2020 15:54 EDT Provider Outr Resulting Lab MICROBIOLOGY - GENERAL ORDERABLES Performing Organization Address City/[facility]/ZIP Co de Phone Number [facility] [address] [place] [address] documented in this encounter Visit Diagnoses Not on filedocumented in this encounter Care Teams Executive Sous Chef Relationship Specialty Start Date End Date Salome Mcarthur, TRUCK [employer] ASSEMBLER [address] [place] [address] PCP - General 03/14/20 documented as of this encounter
--- OUTSIDE RECORDS SUMMARY | 2023-12-02 18:37 | XMS_ITS | Encounter Summary ---
Author Organization [facility] Address [facility] [place] [address] Care Team Providers Care Compression Molding Machine Tender Name Role Phone Lizbet Zhang APRN Primary Care Provider + Reason for Visit * Reason Comments Establish Care Vaginal Discharge disc surgery - polyp s Encounter Details Date Type Department Care Team (Late st Contact Info) Description 07/08/2012 3:30 PM EDT Office Visit Obstetrics [place] [phone] Loulou Hamilton MD [facility] [place] [address] Vaginal lesion (Primary Dx); Hx of bladder cancer Discharge Disposition: Home Social History Tobacco Use [...] Sign Reading Time Taken Comments Blood Pressure 126/64 07/08/2012 3:34 PM EDT Pulse - - Temperature - - Respiratory Rate - - Oxygen Saturation - - Inhaled Oxygen Concentration - - Weight 70.4 kg (155 lb 4.8 oz) 07/08/2012 3:34 P M EDT Height 157.5 cm (5' 2) 07/08/2012 3:34 PM EDT Body Mass Index 28.4 07/08/2012 3:34 PM EDT documented in this encounter Progress Notes * Tina Norwood MD - 07/08/2012 3:27 PM EDT REPRODUCTIVE MEDICINE NEW PATIENT CONSULT NOTE [place], [place] Tim Roque MD Professor and Chair Department of BEHAVIORAL HEALTH WORKER Loulou Watson MD IVF/ART Retail Performance Specialist MD Josee Haas MD Elizabeth Todd, ARNP Chief Complaint: 1.) vaginal polyp SUBJECTIVE: Ms. Mendieta is a 72 y.o. post-menopausal woman who I am asked to consult on at the request of Dr. Boykin, a urologist at [facility] for a discussion with regardsto recently discovered vaginal polyps at the time of cystoscopy in April, The cystoscopy was being done because she previously had bladder cancer in 2007 - which was treatedwith chemotherapy. She has had one recurrence 2008. She was having routine follow-up in April, when this was discovered. She had no idea that she had the polyp and had been completely asymptomatic.No bleeding, no pain. She is not sexually active. August 21, 2011 - she had a cystocele and rectocele repair by a urologist at [facility]. This was done for urinary incontinence which has actually gotten worse over the last 2 years (especially at night) and she is awaiting an appointment with urology here at [facility] for evaluation. Abdominal hysterectomy done in 1986 - for endometriosis. SYNOPTIC METEOROLOGIST History: LMP 1986. Menarche age 15 q 1 month. Very painful periods. - x 4. Hysterectomy in 1986 for endometriosis. History of routine pap smears. In 1969 she had cervical dysplasia which was treated with cryotherapy and then always normal paps. Past Medical History Diagnosis Date ??? Diabetes mellitus, type 2 ??? Hypertension ??? 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 Bladder cancer 03/2008 required chemo, recurrence x 1 in 2008 ??? Endometriosis Past Surgical History Procedure Date ??? Ru and bso 1986 for endometriosis ??? Tubal ligation ??? Appendectomy 1956 ??? Cystocele repair 08/2011 at [facility] ??? Rectocele repair 08/2011 at [facility] ??? Cholecystectomy, laparoscopic 1998 Allergies Allergen Reactions ??? Codeine Phosphate Rash and Other (See Comments) Causes anxiety ??? Erythromycin Base Nausea And Vomiting ??? Meperidine Hcl Other (See Comments) confusion History Social History ??? Marital Status: Spouse Name: N/A Number of Children: N/A ??? Years of Education: N/A Occupational History ??? Not on file. Social History Main Topics ??? Smoking status: Never Smoker ??? Smokeless tobacco: Never Used ??? Alcohol Use: Yes once per year ??? Drug Use: No ??? Sexually Active: Not Currently -- Male partner(s) Other Topics Concern ??? 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 Family History Problem Relation Age of Onset ??? Uterine Cancer Maternal Grandmother ??? Ovarian Cancer Daughter 51 ??? Colorectal Cancer Neg Hx ??? Bladder Cancer Brother ??? Breast Cancer Neg Hx ??? Pancreatic Cancer Neg Hx ROS: Constitutional - No fevers, fatigue, night sweats, unanticipated changes in weight. HEENT - No new headaches, vision/hearing changes. Pulmonary - No cough or SOB. Cardiac - No CP or palpitations. GI - Occasional diarrhea alternating with constipation. No abdominal pain, N/V, melena. - No dysuria, hematuria, polyuria. No vaginal discharge. Endocrine - No intolerance to heat/cold. Musculoskeletal - No new muscle/joint aches. Heme - No easy bruising/hard to control bleeding. Neuro - Occasional dizziness. Skin - No rashes. Psych - No depression/anxiety. OBJECTIVE: BP 126/64 Ht 157.5 cm (5' 2) Wt 70.444 kg (155 lb 4.8 oz) BMI 28.40 kg/m2 General: Well groomed female in no apparent distress Pelvic exam: Normal external genitalia, normal urethral orifice, normal physiologic vaginal discharge. The vaginal cuff is intact. 3 mm raised erythematous lesion on the posterior vaginal wall 2 cm within the introitus. Cytology brush was used to obtain vaginal cytology of the lesion. After obtaining verbal consent, the small lesion was removed with Tischler biopsy forceps. Tissue was sent to pathology. Hemostasis was obtained with silver nitrate. ASSESSMENT and RECOMMENDATIONS: Nick is a 72 yo post-menopausal woman who was seen in referral for evaluation of vaginal polyp in the setting of history of bladder cancer. Cytology and tissue biopsy obtained - will call patient with results. Otherwise, benign tin worker exam. If polyp negative for malignancy, no further SYNOPTIC METEOROLOGIST evaluation or treatment recommended. Dr. Watson was present for the procedure TINA NORWOOD MD, PGY3 I have seen the patient and reviewed the resident's above history and I agree with the details as written. The assessment and plan were formulated in discussion with me and I agree with them as documented. Pertinent History: Hx bladder cancer Vaginal lesion found incidentially at time of cystoscopy for follow up No vaginal pain-no intercourse secondary to 's illness Asymptomatic vaginal lesion without bleeding Pertinent Exam: 3 mm raised edematous lesion posterior wall. Atrophic vagina without other findingson very careful speculum exam x 3, bimanual exam without tenderness, palpable lesion or cul-de-sac nodularity Major issues addressed: Vaginal cytology Vaginal bx (returned granulation tissue) patient called Plan: F/U with PCP and urology as indicated documented in this encounter Plan of Treatment Upcoming Encounters Date Type Department Care Team (Late st Contact Info) Description 02/06/2024 11:30 AM EDT Appointment [place] [address] oMlly Cui, [facility] [place] [address] 02/06/2024 12:15 PM EDT Laboratory Appointment Lab [address] [place] [address] 02/06/2024 1:30 PM EDT Office Visit [place] [address] Molly Cui, [facility] [place] [address] documented as of this encounter Procedures Procedure Name Priority Date/Time Associated Diagnosis Comments SYNOPTIC METEOROLOGIST CYTOLOGY FINAL REPORT Routine 07/08/2012 8:27 PM EDT SURGICAL PATHOLOGY REPORT Routine 07/08/2012 5:37 PM EDT documented in this encounter Results * Spring Machine Operator Cytology Final Report (07/08/2012 8:27 PM EDT) Spring Machine Operator Cytology Final Report ? [facility] ? Provider: ?? MOE WATSON, ??Pt. Name: ?? NICK MENDIETA ?LOULOU ? Acc #: ?[id number] ?Pt. ? Col Date: ?? 07/08/2012 ?/Sex: ?1940,(72 years),Female ? Rec Date: ?? 07/08/2012 ?LOC: ?5L ? CYTOPATHOLOGY: ??SYNOPTIC METEOROLOGIST ? ---Adequacy--- ? Specimen submitted is satisfactory. Vaginal Only. ? ---Cytopathologic Diagnosis--- ? NORMAL ? Negative for Intraepithelial Lesion or Malignancy (NILM). ? 07/09/12 ?? Screened by: ??LMY ??SLA ? 07/10/12 ?? Verified by: ??ABDON Munoz(ASCP), Stefany Rivera - ? Customer Engagement Analyst ? ---Clinical Information--- ? HPV Option: ? No HPV Testing ? Preparation: ?Liquid Based Pap ? Specimen Source: ?Vaginal only/LBP/Diagnostic ? LMP: ?Post menopausal, hx bladder cancer, new posterior ? wall bladder lesion ? Hormones?: ?No ? Hysterectomy?: ?Total Hysterectomy ?: ?No ?: ?No ? I.U.D.?: ?No ? Pelvic Radiation: ? No ? Prior SYNOPTIC METEOROLOGIST Therapy?: ? No ? Hist Abnl Pap/Biopsy?: [...] ??For further ? information please contact the [facility] Laboratory. ? Reference: ??Gunjan AMBRIZ. ??Transplant Immunologist of Pap Smear Results. ??In: ? Rosy BS, Compa HH, ed. ??The Pap Smear. ??[place]: ??iPno, 2002: ? 71-77. JORY [place] 07/08/2012 8:27 PM EDT Loulou Watson MD PATHOLOGY/C YTOLOGY ORDERABLES [facility] * Surgical Pathology Report (07/08/2012 5:37 PM EDT) Surgical Pathology Report ? [facility] ? Provider: ?? MOE WATSON, ??Pt. Name: ?? NICK MENDIETA ?LOULOU ? Acc #: ?[id number] ?Pt. ? Col Date: ?? 07/08/2012 ?/Sex: ?1940,(72 years),Female ? Rec Date: ?? 07/08/2012 ?LOC: ?5L ? SURGICAL PATHOLOGY ? ---Pathologic Diagnosis--- ? Vaginal wall, posterior, biopsy: ? Benign squamous mucosa with inflammed granulation tissue. ? CR-0 ? 07/09/12 ? LJT ? 07/09/12 Verified by: ? Sunita GALLO, Adriana Fernando ? Pathologist ? (Electronic Signature) ? The attending pathologist whose signature appears on this report has ? reviewed all diagnostic slides and has edited the gross and/or ? microscopic portion of the report in rendering the final pathologic ? diagnosis. ? ---Microscopic Description--- ? Slides reviewed, microscopic description not recorded. ? ---Gross Description--- ? Labeled/Fixativ e: ? Labeled with the patient's name, formalin. ? Qty/Size/Weight : ?Single, 0.5 x 0.2 x 0.2 cm. ? Tissue Description: ?? Soft, polypoid portion of pink-tillman tissue. ? Sections/Proces sing: ??(T1) ??vms/EJR ? ---Clinical Information--- ? Specimen Submitted: ? A - Posterior vaginal wall ? Clinical History: ? Found on exam at time of assessment for bladder cancer recurrence by ? urologist doing cystoscopy ? Clinical Diagnosis: ? Benign JORY [place] 07/08/2012 5:37 PM EDT Loulou Watson MD PATHOLOGY/C YTOLOGY ORDERABLES JORY [place] documented in this encounter Visit Diagnoses Diagnosis Vaginal lesion- Primary Other specified noninflammatory disorder of vagina Hx of bladder cancer Personal history of malignant neoplasm of bladder documented in this encounter Care Teams Compression Molding Machine Tender Relationship Specialty Start Date End Date Lizbet Zhang, LORETO PCP - General 06/30/12 05/29/15 documented as of this encounter
--- OUTSIDE RECORDS SUMMARY | 2023-12-02 18:37 | XMS_ITS | Encounter Summary ---
Author Organization [facility] Address [facility] [place] [address] Care Team Providers Care Postbed Stitcher Name Role Phone Salome Mcarthur APRN Primary Care Provider [phone] Encounter Details Date Type Department Care Team (Latest Contact Info) Description 02/15/2016 9:51 AM EST - 02/15/2016 11:59 PM [facility] Hospital [place] [phone] Tremaine Nesbitt MD [facility] [place] [address] NAFLD (nonalcoholic fatty liver disease); Cirrhosis of [...] 02/06/2024 11:30 AM EDT [place]ointment [place] [phone] Molly Wallis [facility] [place] [address] 02/06/2024 12:15 PM EDT Laboratory Appointment Lab [address] [place] [phone] 02/06/2024 1:30 PM EDT Office [place] [phone] Molly Wallis, [facility] [place] [address] documented as of this encounter Procedures Procedure Name Priority Date/Time Associated Diagnosis Comments US ABDOMEN COMPLETE WITH VASCULAR Routine 02/15/2016 10:53 AM EST NAFLD (nonalcoholic fatty liver disease) Cirrhosis of liver without ascites, unspecified hepatic cirrhosis type documented in this encounter Results * US Abdomen Complete With Vascular (02/15/2016 10:53 AM EST) Anatomical Region Laterality Modality Abdomen Ultrasound 02/15/2016 10:4 4 AM EST Impressions 02/15/2016 1:35 PM EST ??Ultrasound Dictation: 1. ??Cirrhotic liver and hepatomegaly, overall appearance similar to prior July 2015. No sonographically evident hepatic mass. 2. ??Interval slight increase in mild splenomegaly. No ascites or collateral vessels identified. 3. The visualized hepatic veins, visualized portal veins, and hepatic artery are patent with normal directional flow. ?Sumi Wilkinson MD Electronically Signed Final Report ?? 02/15/2016 01:34 pm Narrative 02/15/2016 1:35 PM EST Abdominal Duplex ? (Signed Final 02/15/2016 01:34 pm) PATIENT INFO: ID #: ? [id number] ? : [birth year] (75 yrs) Name: ? MILKA MENDIETA ? Visit Date:02/15/2016 10:44 am PERFORMED BY: Performed By: ? Colton Coppola RDMS Attending: ?Jaja GALLO, Sumi Kang Referred By: ?TREMAINE NESBITT MD Secondary Phy.: ?? MOLLY WALLIS APRN Location: ? [place] SERVICE(S) PROVIDED: ??UABDCVASC - Abdominal Complete Survey with Vascular - [id number], [id number] ??[id number] INDICATIONS: ??Cirrhosis: survey for Hepatocellular carcinoma, ??evaluate for complications of portal hypertension ??including portal nae thrombosis COMPARISON: Abdominal ultrasound with liver Doppler interrogation 07/22/15. ------ LIVER: ------ Right Lobe Length: ?? 23.6 ?? cm Echogenicity/Echotexture: ?? Coarse parenchyma Comment: ?No focal lesion seen. ??No appreciable significant ? capsular nodularity seen. GALLBLADDER: Comment: ?Surgically removed. BILIARY TRACT: Intrahepatic Ducts: ?? Normal Extrahepatic Ducts: ?? Normal where seen Common Duct Size: ? 5.0 ? mm --------- PANCREAS: --------- Head: ? Limited visualization Tail: ? Poorly visualized due to overlying bowel Body: ? Limited visualization ------- SPLEEN: ------- Size (cm) ? L: 14.1 ?AP: ??15.0 ?TV: ??7.9 Vol (ml): ?874.9 Comment: ?Mildly enlarged (previously 12.6 cm in length), normal ? appearance. RIGHT KIDNEY: Size (cm) ? L: 10.4 Cortical Thickness: ?Normal Cortical Echogenicity: ?? Normal Hydronephrosis: ?No sonographic evidence LEFT KIDNEY: Size (cm) ? L: 10.2 Cortical Thickness: ?Normal Cortical Echogenicity: ?? Normal Hydronephrosis: ?No sonographic evidence ------ AORTA: ------ Measurements (cm): Proximal ?AP: ??1.8 Mid ? AP: ??1.3 Distal ?AP: ??1.1 Comment: ?Normal in caliber where visualized. ---- IVC: ---- Visusalized proximal portion, normal in caliber. HEPATIC-PORTAL DUPLEX: ? PSV ? EDV ? RI ??Waveform ? (cm/s) ??(cm/s) Hepatic Artery: ?? 33.5 ?8.17 ?0.76 ??Patent Right Hepatic ? Patent where seen Vein: Middle Hepatic ?Patent where seen Vein: Left Hepatic ?Patent where seen Vein: Main Portal ? 18.7 ?Patent Vein: Right Portal ?Patent where seen, Vein: ? hepatopetal Left Portal Vein: ? Patent where seen, ? hepatopetal ?Direction of Flow Main Portal ?Hepatopetal Vein: Collaterals: ??None visualized Procedure Note Sumi Wilkinson MD - 02/15/2016 Abdominal Duplex (Signed Final 02/15/2016 01:34pm) PATIENT INFO: ID #: [id number] : [birth year] (75 yrs) Name: MILKA MENDIETA Visit Date:02/15/2016 10:44 am PERFORMED BY: Performed By: Colton Coppola RDMS Attending: Sumi Wilkinson MD Referred By: TREMAINE NESBITT MD Secondary Phy.: MOLLY WALLIS APRN Location: [place] SERVICE(S) PROVIDED: UABDCVASC - Abdominal Complete Survey with Vascular - [id number], [id number] INDICATIONS: Cirrhosis: survey for Hepatocellular carcinoma, evaluate for complications of portal hypertension including portal nae thrombosis COMPARISON: Abdominal ultrasound with liver Doppler interrogation 07/22/15. ------ LIVER: ------ Right Lobe Length: 23.6 cm Echogenicity/Echotexture: Coarse parenchyma Comment: No focal lesion seen. No appreciable significant capsular nodularity seen. GALLBLADDER: Comment: Surgically removed. BILIARY TRACT: Intrahepatic Ducts: Normal Extrahepatic Ducts: Normal where seen Common Duct Size: 5.0 mm --------- PANCREAS: --------- Head: Limited visualization Tail: Poorly visualized due to overlying bowel Body: Limited visualization ------- SPLEEN: ------- Size (cm) L: 14.1 AP: 15.0 TV: 7.9 Vol (ml): 874.9 Comment: Mildly enlarged (previously 12.6 cm in length), normal appearance. RIGHT KIDNEY: Size (cm) L: 10.4 Cortical Thickness: Normal Cortical Echogenicity: Normal Hydronephrosis: No sonographic evidence LEFT KIDNEY: Size (cm) L: 10.2 Cortical Thickness: Normal Cortical Echogenicity: Normal Hydronephrosis: No sonographic evidence ------ AORTA: ------ Measurements (cm): Proximal AP: 1.8 Mid AP: 1.3 Distal AP: 1.1 Comment: Normal in caliber where visualized. ---- IVC: ---- Visusalized proximal portion, normal in caliber. HEPATIC-PORTAL DUPLEX: PSV EDV RI Waveform (cm/s) (cm/s) Hepatic Artery: 33.5 8.17 0.76 Patent Right Hepatic Patent where seen Vein: Middle Hepatic Patent where seen Vein: Left Hepatic Patent where seen Vein: Main Portal 18.7 Patent Vein: Right Portal Patent where seen, Vein: hepatopetal Left Portal Vein: Patent where seen, hepatopetal Direction of Flow Main Portal Hepatopetal Vein: Collaterals: None visualized IMPRESSION Ultrasound Dictation: 1. Cirrhotic liver and hepatomegaly, overall appearance similar to prior July 2015. No sonographically evident hepatic mass. 2. Interval slight increase in mild splenomegaly. No ascites or collateral vessels identified. 3. The visualized hepatic veins, visualized portal veins, and hepatic artery are patent with normal directional flow. Sumi Wilkinson MD Electronically Signed Final Report 02/15/2016 01:34 pm Tremaine Nesbitt MD IMG US GEN ORDERABL ES documented in this encounter Visit Diagnoses Diagnosis NAFLD (nonalcoholic fatty liver disease) Other chronic nonalcoholic liver disease Cirrhosis of liver without ascites, unspecified hepatic cirrhosis type documented in this encounter Care Teams Postbed Stitcher Relationship Specialty Start Date End Date Salome Mcarthur, LORETO [address] [place] [address] PCP - General Family Medicine 05/30/15 documented as of this encounter
--- OUTSIDE RECORDS SUMMARY | 2023-12-02 18:37 | XMS_ITS | Encounter Summary ---
Author Organization [facility] Address [address] [place] [address] Care Team Providers Care Annealing Operator Name Role Phone Salome Mcarthur SOLAR SALES ASSESSOR Primary Care Provider [phone] Reason for Visit * Reason Onset Date Comments Appointment Related 02/21/2021 Encounter Details Date Type Department Care Team (Late st Contact Info) Description 02/21/2021 Telephone [facility] [address] [place], [place] [phone] Mallory Gallagher, PT [address] [place], [place] [id number] Appointment Related Social History Tobacco Use Types Packs/Day Years [...] Yes 08/21/2011 documented as of this encounter Miscellaneous Notes * Telephone Encounter - Ny Weinstein - 02/21/2021 1132 EST Milka called to cancel / not feeling well and she is re-scheduled documented in this encounter Plan of Treatment Not on file documented as of this encounter Visit Diagnoses Not on filedocumented in this encounter Care Teams Annealing Operator Relationship Specialty Start Date End Date Salome Mcarthur, SOLAR SALES ASSESSOR [address] [place] [address] PCP - General 03/14/20 documented as of this encounter
--- OUTSIDE RECORDS SUMMARY | 2023-12-02 18:37 | XMS_ITS | Encounter Summary ---
Author Organization Formerly [facility] Address [facility] [place] [address] Care Team Providers Care All Round Butcher Name Role Phone Lizbet Galindo APRN Primary Care Provider + Encounter Details Date Type Department Care Team (Late st Contact Info) Description 07/22/2012 10:15 AM EDT [place] [phone] Sandra Beltrán MD [facility] [place] [address] Mixed incontinence (Primary Dx) Discharge Disposition: Home [...] Sign Reading Time Taken Comments Blood Pressure 129/74 07/22/2012 10:04 AM EDT Pulse 99 07/22/2012 10:04 AM EDT Temperature - - Respiratory Rate - - Oxygen Saturation - - Inhaled Oxygen Concentration - - Weight 70.3 kg (155 lb) 07/22/2012 10:04 AM EDT Height 154.9 cm (5' 1) 07/22/2012 10:04 AM EDT Body Mass Index 29.29 07/22/2012 10:04 AM EDT documented in this encounter Progress Notes * Sandra Beltrán MD - 07/27/2012 4:45 PM EDT Urinary Incontinence New Patient Workup - Female Reason for Visit: This is a female 72 y.o. seen at the request of LIZBET GALINDO APRN and DR. Boykin with incontinence times 5 or more years Notes from Dr. Boykin on file have been received and reviewed. She has a history of bladdre cancer and had a fascial sling done by Dr. Molina August 2011. She does not think that sling has helped and she may be worse. Her urge is much worse and she wets the bed. HPI Features of incontinence: The patient leaks with the following stress maneuvers: sneezing and getting out of a chair. She does not leak when coughing , when laughing, when lifting and when straining. The patient has features of urge including: leakage without warning, leakage on the way to the toilet, when full and around water. She does not leak in cold weather. Pad use: Type: she is generally dry by day. She puts a pad on the bed at night. Doesn't wear pads routinely due to yeast infections. Frequency: Every 2 hour(s). Nocturia: x 1. Nocturnal enuresis: Yes. Usual Fluid Intake: Type of Fluid Quantity Consumed Unit Coffee 0 cups per day Tea 1 - 2 cups per day Coke 0-1 cans per day Juice 0 glasses per day Water 2 Qt per day Last UTI: None recently. Bowel Problems: normal - bM daily Gyne: G 4 P 4 # 4 Menopause: hysterectomy age 46 , no symptoms. HRT: Yes. - quit 8 - 10 yr ago Review of Systems: General Health: Good. - diabetes DRYWALL SPRAYER - migrane headaches, no loss of consciousness. RS - No cough or breathing difficulties. CVS No chest pain or JIMENEZ. No claudication. GI - Normal appetite . MUSCULOSKELETAL: No joint or muscle aches or dysfunction. NEURO - peripheral neuropathy Past Medical History Diagnosis Date ??? Diabetes mellitus, type 2 ??? Hypertension ??? 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 Bladder cancer 03/2008 required chemo, recurrence x 1 in 2008 ??? Endometriosis ??? Bladder cancer 07/08/2012 ??? S/P hysterectomy 07/08/2012 ??? Vaginal lesion 07/08/2012 Past Surgical History Procedure Date ??? Ru and bso 1986 for endometriosis ??? Tubal ligation ??? Appendectomy 1956 ??? Cystocele repair 08/2011 at [facility] ??? Rectocele repair 08/2011 at [facility] ??? Cholecystectomy, laparoscopic 1997 She has never had to catheterize. She was told by that she retains 3- 4 oz. Physical Exam Pleasant woman in no acute distress. Oriented to Person, place and time. Healthy appearance. Color normal. No significant skin lesions. Abdomen: The abdomen is soft, non-tender, without masses or organomegaly. There is no hepatosplenomegaly. The bladder is not palpable. There is no CV angle tenderness. Pelvic: The external genitalia are normal with normal hair distribution and no lesions. The meatus is in a normal location with a normal configuration. There is no mobility of the bladder neck. The urethra is not tender. There are no urethral masses. The patient does not leak in the supine positionwith valsalva and with coughing. There is a Gr. 0 cystocele and a Gr. 1 rectocele. There are no pelvic masses. The patient can Kegel effectively. The uterus and adenexa are absent. The vault is well supported. Rectal: The anus and perineum are normal. Rectal sphincter tone is normal. There are no rectal masses. PVR: 125 cc measured in the supine position when the UDS catheter was inserted shortly after the patient had voided. U/A: negative for RBC, WBC and Nitrates. Impression: Pt with mixed incontinence - see UDS - next note. 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 Timed voiding RTC 3 months. documented in this encounter Plan of Treatment Upcoming Encounters Date Type Department Care Team (Late st Contact Info) Description 02/06/2024 11:30 AM EDT [place] [address] Molly Cui APRN [facility] [place] [address] 02/06/2024 12:15 PM EDT Laboratory Appointment Lab [address] [place] [address] 02/06/2024 1:30 PM EDT Office [place] [address] Molly Cui APRN [facility] [place] [address] documented as of this encounter Visit Diagnoses Diagnosis Mixed incontinence- Primary Mixed incontinence urge and stress (male)(female) documented in this encounter Care Teams All Round Butcher Relationship Specialty Start Date End Date Lizbet Galindo APRN PCP - General 06/30/12 05/29/15 documented as of this encounter
--- OUTSIDE RECORDS SUMMARY | 2023-12-02 18:37 | XMS_ITS | Encounter Summary ---
Author Organization [facility] Address [address] [place] [address] Care Team Providers Care Correction Officer Name Role Phone Salome Mcarthur ANTENNA ENGINEER Primary Care Provider [phone] Reason for Visit * Reason Comments Wound Check Encounter Details Date Type Department Care Team (Late st Contact Info) Description 03/22/2020 10:45 EST Nurse Only [facility] [place] Dermatology [address], [place] [address] Nurse, [facility] Encounter for post surgical wound check (Primary Dx) Social History Tobacco Use Types [...] as of this encounter Progress Notes * Germán Franks RN - 03/22/2020 1045 EST Images from the original note were not included. WOUND ASSESSMENT CC: Chief Complaint Patient presents with ??? Wound Check Ms. Corbett is status post shaved biopsy of neoplasm of unspecified nature on the right lower leg(s) on 03/16/2020 by Brittanie Ponce MD. SUBJECTIVE: Patient reports no concern OBJECTIVE: There were no vitals taken for this visit. Wound edges: intact and healing with some periwound erythema Wound Site: granulation tissue and fibrin Drainage: scant serosanguineous Graft site: N/A [place] site: N/A Flap site: N/A PLAN: Wound cleaned: chlorohexidine Dressing: vaseline and dry sterile dressing applied Culture obtained: No MD/PASheilaC consulted No FOLLOW UP Patient advised to return to follow-up care as planned or sooner if concern Wound care instructions given to patient GERMÁN FRANKS RN 11:22 03/22/2020 documented in this encounter Plan of Treatment Not on file documented as of this encounter Visit Diagnoses Diagnosis Encounter for post surgical wound check- Primary documented in this encounter Care Teams Correction Officer Relationship Specialty Start Date End Date Salome Mcarthur NP [address] [place] [address] PCP - General 03/14/20 documented as of this encounter
--- OUTSIDE RECORDS SUMMARY | 2023-12-02 18:37 | XMS_ITS | Encounter Summary ---
Author Organization [facility] [place] [address] Care Team Providers Care Obiee Architect Name Role Phone Salome Mcarthur APRN Primary Care Provider [phone] Reason for Visit * Reason Comments Follow-up Encounter Details Date Type Department Care Team (Late st Contact Info) Description 02/15/2016 1:00 PM EST Office [place] [phone] Molly Wallis APRN [facility] [place] [address] NAFLD (nonalcoholic fatty liver disease) Social History [...] Sign Reading Time Taken Comments Blood Pressure 125/53 02/15/2016 12:39 PM EST Pulse 107 02/15/2016 12:39 PM EST Temperature - - Respiratory Rate - - Oxygen Saturation - - Inhaled Oxygen Concentration - - Weight 66.5 kg (146 lb 11.2 oz) 016 12:39 PM EST Height 156.2 cm (5' 1.5) 02/15/2016 12 :39 PM EST Body Mass Index 27.27 02/15/2016 12:39 PM EST documented in this encounter Progress Notes * Molly Wallis APRN - 02/15/2016 1:00 PM EST HEPATOLOGY Follow up Visit Milka Mendieta 1940 [employer]OLS PROJECT ENGINEER: MOLLY WALLIS APRN PCP: Salome Mcarthur APRN Requesting Provider: REASON FOR CONSULTATION: BA Cirrhosis HISTORY OF PRESENT ILLNESS Milka Mendieta is a 75 y.o. year old female With BA Cirrhosis. She was first diagnosed 6 months ago. She has been doing well from a liver perspective. Her sister a few months ago from decompensated cirrhosis and her niece and brother also in the past 3 months. She was told that she should eat a vegetarian diet and limit her protein but wanted to check with me first. She has lost a few lbs since her last visit. She had an ultrasound today but result have not yet returned. PAST MEDICAL/SURGICAL HISTORY 1. 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 Fibroscan 06/28/15: 28.4 kPa; 6% IQR; 100% success rate, F4 ?? Risk factors: diabetes, hyperlipidemia, HTN, overweight. Strong family hx of BA cirrhosis. ?? Ultrasound 07/22/2015: no lesions ?? EGD 07/14/2015: no varices, gastric ulcers (2). 2 Diabetes 3. Hypertension 4. Elevated cholesterol MEDICATIONS Outpatient Prescriptions Marked as Taking for the 02/15/16 encounter (Office Visit) with Molly Wallis APRN Medication Sig Dispense Refill ??? diphenhydrAMINE (BENADRYL) 25 mg Capsule Take 25 mg by mouth every 6 hours as needed for Itching. Current Facility-Administered Medications for the 02/15/16 encounter (Office Visit) with Molly Wallis APRN [...] 29 of acute hepatitis PHYSICAL EXAM Vitals: 02/15/16 1239 BP: 125/53 Pulse: 107 Weight: 66.5 kg (146 lb 11.2 oz) Height: 156.2 cm (5' 1.5) Body mass index is 27.27 kg/(m^2). Gen: Well appearing, no apparent distress. [...] 120 Lab Results Component Value Date WBC 5.2 02/15/2016 HGB 13.8 02/15/2016 HCT 41.2 02/15/2016 MCV 90.4 02/15/2016 PLATELET 143 (L) 02/15/2016 Recent Labs 02/15/16 1348 INR 1.0 Chemistry Component Value Date/Time NA 141 02/15/2016 1348 K 4.0 02/15/2016 1348 CL 98 02/15/2016 1348 CO2 29 02/15/2016 1348 BUN 15 02/15/2016 1348 CREATININE 0.90 02/15/2016 1348 Component Value Date/Time CALCIUM 10.5 02/15/2016 1348 ALKPHOS 44 02/15/2016 1348 AST 37 (H) 02/15/2016 1348 ALT 31 (H) 02/15/2016 1348 BILITOT 0.5 02/15/2016 1348 Ultrasound 02/15/2016: Ultrasound Dictation: 1. Cirrhotic liver and hepatomegaly, overall appearance similar to prior July 2015. No sonographically evident hepatic mass. 2. Interval slight increase in mild splenomegaly. No ascites or collateral vessels identified. 3. The visualized hepatic veins, visualized portal veins, and hepatic artery are patent with normal directional flow. Sumi Wilkinson MD Electronically Signed Final Report 02/15/2016 01:34 pm ASSESSMENT/PLAN Milka Mendieta is a 75 y.o. 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 Her metabolic risks include diabetes, hypertension, elevated cholesterol, overweight. In addition she has a strong family history of cirrhosis, likely due to BA. 1. Cirrhosis. Diagnosed by fibroscan. Well compensated. MELD 9. Discussed that she should not limitthe amount of protein she eats because it is important for her to maintain her muscle mass. 2. BA. WE discussed that 5-10% weight [...] Wallis APRN Section of Gastroenterology [place] [address] Copy: Salome Mcarthur APRN [address] / [place] [id number] 25 of this 30 minute visit in face to face discussion regarding disease, prognosis and treatment documented in this encounter Plan of Treatment Upcoming Encounters Date Type Department Care Team (Late st Contact Info) Description 02/06/2024 11:30 AM EDT [place] [phone] Molly Wallis AQUACULTURE DIRECTOR [facility] [place] [address] 02/06/2024 12:15 PM EDT Laboratory Appointment Lab [address] [place] [phone] 02/06/2024 1:30 PM EDT Office [place] [phone] Molly Wallis AQUACULTURE DIRECTOR [facility] [place] [address] Scheduled Orders Name Type Priority Associated Diagnoses Orde r Schedule CBC (with Diff) Lab Routine NAFLD (nonalcoholic fatty liver disease) Expected: 02/15/2016, Expires: 02/14/2017 Comprehensive metabolic panel (non-fasting) Lab Routine NAFLD (nonalcoholic fatty liver disease) Expected: 02/15/2016, Expires: 02/14/2017 Prothrombin Time Lab Routine NAFLD (nonalcoholic fatty liver disease) Expected: 02/15/2016, Expires: 02/14/2017 documented as of this encounter Results * Prothrombin Time (08/21/2016 1:10 PM EDT) Prothrombin Time 13.5 12.0 - 15.0 sec [facility] Comment: An INR <2.0 indicates [...] International Normalization Ratio 1.0 0.9 - 1.1 [facility] Blood specimen (specimen) 08/21/2016 1:10 PM EDT 08/21/2016 1:25 PM EDT Narrative Resulting Agency Comment Spec In Lab Beti Hudson MD HEMATOLOGY ORDERABLE S [facility] [place] [place] [address] * (ABNORMAL) Comprehensive metabolic panel (non-fasting) (08/21/2016 1:10 PM EDT) Glucose 167 65 - 199 mg/dL [facility] Comment:Diabetes: >=200 mg/d L plus symptoms Blood Urea Nitrogen 18 8 - 18 mg/dL [facility] Creatinine 0.71 0.70 - 1.20 mg/dL [facility] Comment: Please note that the pediatric reference intervals supplied above were not validated at [facility]. Results from pediatric patients should be interpreted in conjunction to the patient's age, height and muscle mass. Sodium 139 135 - 145 mmol/L [facility] Potassium 4.4 3.5 - 5.0 mmol/L [facility] Comment: Please note: ??Patients with WBC >100,000 may have falsely elevated Potassium levels. ??For accurate Potassium quantification in these patients send serum separator tube (gold top) for subsequent determinations. ??Contact the Clinical Chemistry Laboratory if there are any questions. Chloride 95(L) 98 - 107 mmol/L [facility] Carbon Dioxide 28 22 - 31 mmol/L [facility] Anion Gap 16(H) 5 - 15 mmol/L [facility] Calcium 10.7(H) 8.5 - 10.5 mg/dL [facility] Protein, Total 7.7 6.1 - 8.0 gm/dL [facility] Albumin 5.0 3.2 - 5.2 gm/dL [facility] Aspartate Aminotransferase 32(H) 0 - 30 unit/L [facility] Alanine Aminotransferase 38(H) 0 - 30 unit/L [facility] Alkaline Phosphatase 60 40 - 104 unit/L [facility] Bilirubin, Total 0.7 0.2 - 1.3 mg/dL [facility] Bilirubin, Direct 0.2 0.0 - 0.3 mg/dL [facility] Est Glomerular Filtration Rate >60 >=60 [facility] Comment: This estimated GFR (eGFR) [...] the following links into your internet browser. [email or web address] Blood specimen (specimen) 08/21/2016 1:10 PM EDT 08/21/2016 1:25 PM EDT Narrative Resulting Agency Comment Spec In Lab Beti Hudson MD CHEMISTRY ORDERABLES [facility] [place] [id number] * US Abdomen Complete With Vascular (08/21/2016 [...] 12:13 pm) PATIENT INFO: ID #: ? [id number] ? : [birth year] (76 yrs) Name: ? MILKA MENDIETA ? Visit Date:08/21/2016 11:21 am PERFORMED BY: Performed By: ? Aysha Forde RDMS Attending: ?Chapo GALLO, Dinh Butler Referred By: ?BETI HUDSON MD Secondary Phy.: ?? MOLLY WALLIS APRN Location: ? [place] SERVICE(S) PROVIDED: ??UABDCVASC - Abdominal Complete Survey with Vascular - 19755, [id number] ??[id number] INDICATIONS: ??Cirrhosis: survey for hepatocellular carcinoma, ??evaluate [...] ??5.2 Vol (ml): ?199.2 Comment: ?Mild splenomegaly. Spenule 1.8 cm. RIGHT KIDNEY: Size (cm) ? [...] Final 08/21/2016 12:13pm) PATIENT INFO: ID #: [id number] : [birth year] (76 yrs) Name: MILKA MENDIETA Visit Date:08/21/2016 11:21 am PERFORMED BY: Performed By: Aysha Forde RDMS Attending: Dinh Cowan MD Referred By: BETI HUDSON MD [facility] Phy.: MOLLY WALLIS APRN Location: [place] SERVICE(S) PROVIDED: UABDCVASC - Abdominal Complete Survey with Vascular - [id number], [id number] INDICATIONS: Cirrhosis: survey for hepatocellular carcinoma, evaluate for complications of portal hypertension including portal vein thrombosis COMPARISON: US: 02/15/16; 07/22/15 ------ LIVER: ------ Right Lobe Length: 23.2 [...] disease documented in this encounter Care Teams Obiee Architect Relationship Specialty Start Date End Date Salome Mcarthur APRN [address] [place] [address] PCP - General Family Medicine 05/30/15 documented as of this encounter
--- OUTSIDE RECORDS SUMMARY | 2023-12-02 18:37 | XMS_ITS | Encounter Summary ---
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 Problem List: Impaired transfers, Need for an independent home exercise program and Vertigo Assessment: Pt presents today with about 2 weeks of insidious onset of vertigo. She has had multiple bouts in the past, which did resolve with PT. She presents again today with positive dizziness with bilateral Hallpike Scott tests. However, nystagmus not noted. She does have an impaired oculomotor evaluation, but no signs of dizziness with testing. Therefore, her dizziness is likely not related tothe oculomotor testing. Because she was so sensitive to bilateral Hallpike Kerrick, she has bilateral posterior canalithesis. She has a good rehab potential based on success with PT in the past. Equipment Needed: None Barriers to Learning: None Potential Barriers to Progress: Recurring vertigo, which may take longer to resolve. Response to Evaluation: Well Rehabilitation Potential: Motivation/Commitment to Therapy: Good Rehabilitation Potential: Good Short-Term Goals Timeframe: 09/27/22, 3 weeks Goals: 1. Pt will be able to bend forward, look up, and get out of bed with dizziness no greater than 2/10to be able to safely transfer out of bed or bend down to pick something up. Long-Term Goals Timeframe: 10/18/22, 6 weeks Goals: 1. Pt will be able to bend forward, look up, and get out of bed without dizziness to be able to safely transfer out of bed or bend down to pick something up. PLAN Medical Necessity: Therapy intervention is indicated in order to return to a premorbid level of function or significantly improve current level of function. Physical Therapy is recommended for:An improvement in current level of function. Treatment Frequency/ Duration: 1x weekly for 6 weeks. Therapy Treatment to include: 19464 - Therapeutic Exercise, 58108 - Neuromuscular Re-education, 13499 - Canalith Repositioning and 33599 - Therapeutic Activity Recommended Consults: None currently Development of Plan of Care: Patient participated in development of plan of care today. Plan for next visit: Review the right Amanda for independence. Assess response to current exercises,and assess Hallpike-Kerrick again. If still has vertigo, may attempt the left Amanda also. The patient has been instructed to contact our clinic if any questions or problems should arise ATTENDING PHYSICIAN: Medicare certification needed. Your signature indicates you approve the therapy goals and plan of care outlined on this document dated 09/06/2022. Thank you! Attending Physician Signature Date Kal Clark, PT 09/06/2022 12:26 documented in this encounter Plan of Treatment Not on file documented as of this encounter Visit Diagnoses Not on filedocumented in this encounter Care Teams Production Recovery Operator Relationship Specialty Start Date End Date Salome Mcarthur, DRYWALL STRIPPER HELPER [address] [facility] [place] [address] PCP - General 03/14/20 documented as of this encounter
--- OUTSIDE RECORDS SUMMARY | 2023-12-02 18:37 | XMS_ITS | Encounter Summary ---
Author Organization [facility] Address [address] [place] [address] Care Team Providers Care Forcer Maker Name Role Phone Salome Mcarthur PICKING TECH Primary Care Provider Reason for Visit * Reason Onset Date Comments New/Evolving Symptoms 01/05/2022 Encounter Details Date Type Department Care Team (Late st Contact Info) Description 01/05/2022 Telephone [facility] [place] Dermatology [address] [place] [address], [place] [address] Brittanie Ponce MD [address] [facility] [address] [place] [address] New/Evolving Symptoms Social History Tobacco Use Types Packs/Day Years [...] encounter Miscellaneous Notes * Telephone Encounter - Axel Gooden - 01/05/2022 1148 EDT Lm for pt to cb to [place] * Telephone Encounter - Axel Gooden - 01/05/2022 1025 EDT Patient called stating they have growth on outside of stomach. Round and the size of a dime. Not irritating the patient. Says ED recommended being seen at Derm, but no ED visit listed. Please advise, thank you. documented in this encounter Plan of Treatment Not on file documented as of this encounter Visit Diagnoses Not on filedocumented in this encounter Care Teams Forcer Maker Relationship Specialty Start Date End Date Salome Mcarthur, JEIMY [address] [place] [address] PCP - General 03/14/20 documented as of this encounter
--- OUTSIDE RECORDS SUMMARY | 2023-12-02 18:37 | XMS_ITS | Encounter Summary ---
Author Organization [facility] Address [facility] [place] [address] Care Team Providers Care Qa Consultant Name Role Phone Salome Lopez APRN Primary Care Provider [phone] Reason for Visit * Reason Comments GI Problem * Consultation (Routine) - Closed Specialty Diagnoses / Procedures Referred By Jose bermudez Referred To Contact Gastroenterology Diagnoses fatty liver disease Salome Lopez APRN [address] [place] [address] [facility] [address] [place] [address] Referral ID Status Reason Start Date Expiration Date V isits Requested Visits Authorized [id number] Closed [facility] 05/30/2015 05/29/2016 1 1 Encounter Details Date Type Department Care Team (Late st Contact Info) Description 06/28/2015 2:30 PM EDT Office [place] [phone] Lani Wallis APRN [facility] [place] [address] NAFLD (nonalcoholic fatty liver disease); Cirrhosis of [...] Sign Reading Time Taken Comments Blood Pressure 127/63 06/28/2015 2:08 PM EDT Pulse 95 06/28/2015 2:08 PM EDT Temperature - - Respiratory Rate - - Oxygen Saturation - - Inhaled Oxygen Concentration - - Weight 68 kg (150 lb) 06/28/2015 2:08 PM EDT Height 156.2 cm (5' 1.5) 06/28/2015 2:08 PM EDT Body Mass Index 27.88 06/28/2015 2:08 PM EDT documented in this encounter Progress Notes * Lani Wallis APRN - 06/28/2015 2:54 PM EDT HEPATOLOGY NEW PATIENT CONSULTATION Nick Mendieta 1940 [employer]: LANI WALLIS APRN PCP: SALOME LOPEZ APRN Requesting Provider: REASON FOR CONSULTATION: Elevated liver enzymes, suspected BA. HISTORY OF PRESENT ILLNESS Nick Mendieta is a 75 y.o. year old female with elevated liver enzymes. Has been told she has afatty liver. Her mother, sister, and niece had cirrhosis of the liver. Does not know why they had cirrhosis and none of them drink alcohol. Her sister is followed here at [facility] and is thinking about liver transplant. In addition, her father of acute hepatitis at age 29. She believes she was tested for Hepatitis C, but does not have the results. Metabolic risk factors: hypertension, diabetes, high cholesterol, overweight. No sleep apnea or alcohol use. Viral risk factors: Denies IV or intranasal use of drugs, no blood transfusion before 1988, no tattoos, no piercings and no reports of incarceration ROS: Constitutional: no fatigue, fever, chills, no change in weight >10lbs in last 6 months HEENT: no visual changes, no URI symptoms Cardio: no chest pain, palpitations Resp: Has cough from nasal drinp no cough, no SOB, no JIMENEZ or orthopnea Hem/Lymph: no new lumps or bumps on body GI: Has an umbilical hernia. No blood in stools, no nausea/vomitting : no dysuria Integumentary: no new rashes, no easy bruising Musculoskeletal: no new joint pains, swelling of ankles or legs Neuro: Neuropathy in feet, sometimes to ankles. No weakness in extremities PAST MEDICAL/SURGICAL HISTORY 1. Diabetes 2. Hypertension 3. Elevated cholesterol MEDICATIONS Outpatient Prescriptions Marked as Taking for the 06/28/15 encounter (Office Visit) with Lani Wallis APRN Medication Sig Dispense Refill ??? fenofibrate (TRICOR) 145 mg Tablet ??? clonazePAM (KLONOPIN) 0.5 mg Tablet ??? [...] 100 mg by mouth as needed. ??? Frederick-3 Fatty Acids-Vitamin E (FISH OIL) 1,000 mg Cap Take 3,000 mg by mouth daily. ??? multivitamin (THERAGRAN) tablet Take 1 tablet by mouth daily. ??? amitriptyline (ELAVIL) 50 mg tablet Take 50 mg by mouth nightly. ??? docusate sodium (COLACE) 100 mg capsule Current Facility-Administered Medications for the 06/28/15 encounter (Office Visit) with Lani Wallis APRN [...] Cirrhosis (likely due to BA) in sister, mother and niece Cancer (bladder cancer in pt), brother with lung cancer and throat cancer. Daughter had ovarian cancer Dad at age 29 of acute hepatitis PHYSICAL EXAM Filed Vitals: 06/28/15 1408 BP: 127/63 Pulse: 95 Height: 156.2 cm (5' 1.5) Weight: 68.04 kg (150 lb) Body mass index is 27.89 kg/(m^2). Gen: Well appearing, no apparent distress. Skin: no spider angiomata, no palmar erythema, no jaundice. HEENT: Sclerae anicteric, pupils equal, round, react to light. Pharynx unremarkable. Neck is supple, no adenopathy, no thyromegaly. Chest is clear. Heart: Regular rate and rhythm. Normal S1, S2, no murmurs. Abdomen: Normal bowel sounds; soft, non distended. No obvious hepatosplenomegaly. No evidence of ascites Extremities: No edema. Neuro: alert and oriented x3, no asterixis or tremor. Outside Labs 05/30/15: AST: 39 ALT: 56 Tbili: 0.38 Albumin: 4.4 Total protein: 7.5 Alk phos: 55 Sodium: 141 Potassium: 4.0 Creatinine: 0.87 BUN: 23 Glucose: 120 Procedure: Vibration Controlled Transient Elastography (VCTE) or Fibroscan [place] Protocol: Patient's identity, procedure and site were verified, confirmatory pause performed. Discussed procedure including risks and potential complications. Questions answered. Patient verbalizes understanding and wishes to proceed with Fibroscan assessment. Patient was placed in the supine position with right arm in maximum abduction to allow optimal exposure of right lateral abdomen. Patient was briefly assessed. Testing was performed in the mid-axillary location. 50Hz Shear Wave pulses were applied and the resulting Shear Wave and Propagation Speed was detected with a 3.5MHz ultrasonic signal, using the Fibroscan probe. Skin to liver capsule distance and liver parenchyma were accessed during the entire examination with the Fibroscan probe. Patient was instructed to breathe normally and abstain from sudden movements during the procedure. At least ten Sheer Waves were produced; individual measurements of each Shear Wave were calculated. Patient tolerated the procedure well with no complications. Fibroscan Results: Mean kPa: 28.4 kPa Mean IQR: (goal is <30 %) 6% Success rate: (goal is >60%) 100% Predicted fibrosis stage: F4 ASSESSMENT/PLAN Nick Mendieta is a 75 y.o. female with elevated liver enzymes and likely non-alcoholic steatohepatitis. Her metabolic risks include diabetes, hypertension, elevated cholesterol, overweight. In addition she has a strong family history of cirrhosis, likely due to BA. Her fibroscan today show adv anced fibrosis (F4) consistent with cirrhosis. 1. Cirrhosis. Well compensated. Unable to calculate MELD today but normal Creatinine and total bilirubin. No signs of encephalopathy or ascites. 2. BA. WE discussed that 5-10% weight loss can cause fat to come out of the liver and can cause fibrosis to go down. She is committed to losing 7-15 lbs and plans to walk her dog more and not bringunhealthy snacks into the house. There is no reason for her to not be on Statin for her cardiovascular risk. 3. Portal hypertension. She should have an upper endoscopy to screen for varices. We discussed thistoday and plan to schedule today. 4. HCC surveillance. She is at increased risk of hepatocellular carcinoma (1-3% chance per year). She should have imaging of her liver every 6 months. Plan to do ultrasound of liver with doppler at next available, and again in 6 months with an appointment. Follow up with EGD and ultrasound at next available. Follow up in 6 months with labs, ultrasound and appointment. Lani Wallis APRN Section of [place]enter[place] [address] Copy: SALOME LOPEZ APRN [address] [facility] [place] [place] [id number] documented in this encounter Miscellaneous Notes * Addendum Note - Lexis Pineda - 06/28/2015 4:20 PM EDTAddended by: LEXIS PINEDA on: 06/28/2015 04:20 PM Modules accepted: Orders documented in this encounter Plan of Treatment Upcoming Encounters Date Type Department Care Team (Late st Contact Info) Description 02/06/2024 11:30 AM EDT [place] [address] Lani Wallis, [employer] [facility] [place] [place] [address] 02/06/2024 12:15 PM EDT Laboratory Appointment Lab [address] [place] [phone] 02/06/2024 1:30 PM EDT Office [place] [address] Lani Wallis, [facility] [place] [address] Scheduled Orders Name Type Priority Associated Diagnoses Orde r Schedule UPPER GI ENDOSCOPY Procedures Routine NAFLD (nonalcoholic fatty liver disease) Cirrhosis of liver without ascites, unspecified hepatic cirrhosis type Ordered: 06/28/2015 documented as of this encounter Procedures Procedure Name Priority Date/Time Associated Diagnosis Comments HEMOGRAM Routine 06/28/2015 4:22 PM EDT NAFLD (nonalcoholic fatty liver disease) Cirrhosis of liver without ascites, unspecified hepatic cirrhosis type DIFFERENTIAL, AUTOMATED Routine 06/28/2015 4:22 PM EDT NAFLD (nonalcoholic fatty liver disease) Cirrhosis of liver without ascites, unspecified hepatic cirrhosis type HEPATITIS C ANTIBODY Routine 06/28/2015 4:22 PM EDT NAFLD (nonalcoholic fatty liver disease) Cirrhosis of liver without ascites, unspecified hepatic cirrhosis type IRON AND TIBC Routine 06/28/2015 4:22 PM EDT NAFLD (nonalcoholic fatty liver disease) Cirrhosis of liver without ascites, unspecified hepatic cirrhosis type HEPATITIS A ANTIBODY, TOTAL Routine 06/28/2015 4:22 PM EDT NAFLD (nonalcoholic fatty liver disease) Cirrhosis of liver without ascites, unspecified hepatic cirrhosis type HEPATITIS B CORE ANTIBODY, TOTAL Routine 06/28/2015 4:22 PM EDT NAFLD (nonalcoholic fatty liver disease) Cirrhosis of liver without ascites, unspecified hepatic cirrhosis type HEPATITIS B SURFACE ANTIBODY Routine 06/28/2015 4:22 PM EDT NAFLD (nonalcoholic fatty liver disease) Cirrhosis of liver without ascites, unspecified hepatic cirrhosis type HEPATITIS B SURFACE ANTIGEN Routine 06/28/2015 4:22 PM EDT NAFLD (nonalcoholic fatty liver disease) Cirrhosis of liver without ascites, unspecified hepatic cirrhosis type CBC (WITH DIFF) Routine 06/28/2015 4:22 PM EDT NAFLD (nonalcoholic fatty liver disease) Cirrhosis of liver without ascites, unspecified hepatic cirrhosis type FERRITIN Routine 06/28/2015 4:22 PM EDT NAFLD (nonalcoholic fatty liver disease) Cirrhosis of liver without ascites, unspecified hepatic cirrhosis type documented in this encounter Results * Prothrombin Time (02/15/2016 1:48 PM EST) Prothrombin Time 13.4 12.0 - 15.0 sec [facility] Comment: An INR <2.0 [...] International Normalization Ratio 1.0 0.9 - 1.1 [facility] Blood specimen (specimen) 02/15/2016 1:48 PM EST 02/15/2016 1:52 PM EST Narrative Resulting Agency Comment Spec In Lab Tremaine Rock MD HEMATOLOGY ORDERABL ES [facility] [place] [address] * (ABNORMAL) Comprehensive metabolic panel (non-fasting) (02/15/2016 1:48 PM EST) Glucose 205(H) 65 - 199 mg/dL [facility] Comment:Diabetes: >=200 mg/d L plus symptoms Blood Urea Nitrogen 15 8 - 18 mg/dL [facility] Creatinine 0.90 0.70 - 1.20 mg/dL [facility] Comment: Please note that the pediatric reference intervals supplied above were not validated at [facility]. Results from pediatric patients should be interpreted in conjunction to the patient's age, height and muscle mass. Sodium 141 135 - 145 mmol/L [facility] Potassium 4.0 3.5 - 5.0 mmol/L [facility] Comment: Please note: ??Patients with WBC >100,000 may have falsely elevated Potassium levels. ??For accurate Potassium quantification in these patients send serum separator tube (gold top) for subsequent determinations. ??Contact the Clinical Chemistry Laboratory if there are any questions. Chloride 98 98 - 107 mmol/L [facility] Carbon Dioxide 29 22 - 31 mmol/L [facility] Anion Gap 14 5 - 15 mmol/L [facility] Calcium 10.5 8.5 - 10.5 mg/dL [facility] Protein, Total 7.1 6.1 - 8.0 gm/dL [facility] Albumin 4.7 3.2 - 5.2 gm/dL [facility] Aspartate Aminotransferase 37(H) 0 - 30 unit/L [facility] Alanine Aminotransferase 31(H) 0 - 30 unit/L [facility] Alkaline Phosphatase 44 40 - 104 unit/L [facility] Bilirubin, Total 0.5 0.2 - 1.3 mg/dL [facility] Bilirubin, Direct 0.2 0.0 - 0.3 mg/dL [facility] Est Glomerular Filtration Rate >60 >=60 [facility] Comment: This estimated GFR (eGFR) [...] the following links into your internet browser. [email or web address] Blood specimen (specimen) 02/15/2016 1:48 PM EST 02/15/2016 1:52 PM EST Narrative Resulting Agency Comment Spec In Lab Tremaine Rock MD CHEMISTRY ORDERABLE S [facility] [place] [id number] * US Abdomen Complete With Vascular (02/15/2016 [...] 01:34 pm) PATIENT INFO: ID #: ? [id number] ? : 41 (75 yrs) Name: ? NICK MENDIETA ? Visit Date:02/15/2016 10:44 am PERFORMED BY: Performed By: ? Colton Coppola RDMS Attending: ?Jaja GALLO, Sumi Kang Referred By: ?TREMAINE ROCK MD Secondary Phy.: ?? LANI WALLIS APRN Location: ? [place] SERVICE(S) PROVIDED: ??UABDCVASC - Abdominal Complete Survey with Vascular - [id number], [id number] ??[id number] INDICATIONS: ??Cirrhosis: survey for Hepatocellular carcinoma, ??evaluate [...] Final 02/15/2016 01:34pm) PATIENT INFO: ID #: [id number] : [birth year] (75 yrs) Name: NICK MENDIETA Visit Date:02/15/2016 10:44 am PERFORMED BY: Performed By: Colton Coppola RDMS Attending: Sumi Wilkinson MD Referred By: TREMAINE ROCK MD Secondary Phy.: LANI WALLIS APRN Location: [place] SERVICE(S) PROVIDED: UABDCVASC - Abdominal Complete Survey with Vascular - 13510, [id number] INDICATIONS: Cirrhosis: survey for Hepatocellular carcinoma, evaluate [...] Signed Final Report 02/15/2016 01:34 pm Tremaine Rock MD IMG US GEN ORDERABL ES * US Abdomen Complete With Vascular (07/22/2015 [...] 04:17 pm) Patient Info ID #: ? [id number] ? : [birth year] (75 yrs) Name: ? NICK MENDIETA ? Visit Date:07/22/2015 09:18 am Performed By Performed By: ? Michelle Major RDMS Attending: ?Juliane GALLO, Meghan Ventura Associate: ?Mat Dotson MD Referred By: ?TREMAINE ROCK MD Service(s) Provided ??UABDCVASC - Abdominal Complete Survey with Vascular - 45225, 93892 ??[id number] Indications ??Cirrhosis: survey for hepatocellular carcinoma, ??evaluate [...] Final 08/03/2015 04:17pm) Patient Info ID #: [id number] : [birth year] (75 yrs) Name: NICK MENDIETA Visit Date:07/22/2015 09:18 am Performed By Performed By: Michelle Major RDMS Attending: Meghan Cardozo MD Associate: Mat Dotson MD Referred By: TREMAINE ROCK MD Service(s) Provided UABDCVASC - Abdominal Complete Survey with Vascular - 00590, [id number] Indications Cirrhosis: survey for hepatocellular carcinoma, evaluate [...] Corrected Final Report 08/03/2015 04:17 pm Tremaine Rock MD IMG US GEN ORDERABL ES * Differential, Automated (06/28/2015 4:22 PM EDT) Neutrophil % 48.9 % [facility] Neutrophil Absolute 4.02 1.50 - 6.30 x10(3)/[facility] LAB[facility]AT[facility] Lymph % 43.3 % [facility] Lymphocytes Abs 3.6 1.0 - 3.6 x10(3)/[facility]ORY Monocyte % 6.3 % [facility] Monocyte Abs 0.5 0.2 - 1.0 x10(3)/[facility]ORY Eos % 1.1 % [facility] Eosinophils Abs 0.1 0.0 - 0.5 x10(3)/[facility]ORY Basophil % 0.2 % [facility] Baso Absolute 0.0 0.0 - 0.2 x10(3)/[facility] LABORATORY Immature Gran % 0.20 % [facility] Comment: Immature granulocytes(IG's)percentage and absolute count will include metamyelocytes, myelocytes, and promyelocytes. Blood smears from CBCs yielding IG's will be scanned manually for concordance. If this scan disagrees with the automated IG or if promyelocytes are noted, a manual differential will be performed. Immature Gran Absolute 0.02 0.00 - 0.05 x10(3)/[facility]ATORY Blood specimen (specimen) 06/28/2015 4:22 PM EDT 06/28/2015 4:24 PM EDT Narrative Resulting Agency Comment Spec In Lab Tremaine Rock MD HEMATOLOGY ORDERABL ES [facility] [place] [address] * Hemogram (06/28/2015 4:22 PM EDT) White Blood Cell 8.2 4.0 - 10.0 x10(3)/[facility]AT[facility] Red Blood Cell 4.57 3.93 - 5.22 x10(6)/[facility] Hemoglobin 14.4 11.2 - 15.7 gm/dL [facility] Hematocrit 42.0 34.0 - 45.0 % [facility] Mean Cell Volume 91.9 79.0 - 94.0 fL [facility] Mean Cell Hemoglobin 31.5 26.6 - 32.2 pg [facility] Mean Cell Hemoglobin Concentration 34.3 32.0 - 36.5 gm/dL [facility] Platelet 168 145 - 370 x10(3)/[facility]ATORY RDW Standard Deviation 42.1 35.0 - 46.0 fL [facility] RDW coefficient of variation 12.5 10.9 - 14.4 % [facility] Mean Platelet Volume 11.6 9.0 - 12.0 fL [facility] Blood specimen (specimen) 06/28/2015 4:22 PM EDT 06/28/2015 4:24 PM EDT Narrative Resulting Agency Comment Spec In Lab Tremaine Rock MD HEMATOLOGY ORDERABL ES Performing Organization Address City/[facility]/ZIP Co de Phone Number [facility] [place] [address] * Hepatitis B Surface Antigen (06/28/2015 4:22 PM EDT) Hepatitis B Surface Antigen Negative Negative [facility] Blood specimen (specimen) 06/28/2015 4:22 PM EDT 06/28/2015 4:25 PM EDT Narrative Resulting Agency Comment Spec In Lab Tremaine Rock MD CHEMISTRY ORDERABLE S Performing Organization Address City/[facility]/ZIP Co de Phone Number [facility] [place] [address] * Hepatitis C Antibody (06/28/2015 4:22 PM EDT) Hepatitis C Antibody Negative Negative [facility] Blood specimen (specimen) 06/28/2015 4:22 PM EDT 06/28/2015 4:25 PM EDT Narrative Resulting Agency Comment Spec In Lab Tremaine Rock MD CHEMISTRY ORDERABLE S Performing Organization Address [facility] Co de Phone Number [facility] [place] [address] * Hepatitis B Surface Antibody (06/28/2015 4:22 PM EDT) Hepatitis B Surface Antibody Negative [facility] Comment: Expected Results: Vaccinated: Positive Unvaccinated: Negative Please note: A positive result for this assay is consistent with a concentration of anti-HBs antibodies >10mIU/ml, which indicates that anti-HBs antibodies have been detected at levels consistent with protective immunity against HBV infection. Blood specimen (specimen) 06/28/2015 4:22 PM EDT 06/28/2015 4:25 PM EDT Narrative Resulting Agency Comment Spec In Lab Tremaine Rock MD CHEMISTRY ORDERABLE S Performing Organization Address City/[facility]/ZIP Co de Phone Number [facility] [place] [address] * Hepatitis A Antibody, Total (06/28/2015 4:22 PM EDT) Hepatitis A ANTIBODY, TOTAL Negative Negative [facility] Blood specimen (specimen) 06/28/2015 4:22 PM EDT 06/28/2015 4:25 PM EDT Narrative Resulting Agency Comment Spec In Lab Tremaine Rock MD CHEMISTRY ORDERABLE S [facility] [place] [address] * Hepatitis B Core Antibody, Total (06/28/2015 4:22 PM EDT) Hepatitis B Core Antibody Negative Negative [facility] Blood specimen (specimen) 06/28/2015 4:22 PM EDT 06/28/2015 4:25 PM EDT Narrative Resulting Agency Comment Spec In Lab Tremaine Rock MD CHEMISTRY ORDERABLE S Performing Organization Address City/[facility]/ZIP Co de Phone Number [facility] [place] [address] * Iron and TIBC (06/28/2015 4:22 PM EDT) Iron 101 30 - 150 mcg/dL [facility] TIBC 432 250 - 450 mcg/dL [facility] Iron Saturation 23 20 - 50 % [facility] Blood specimen (specimen) 06/28/2015 4:22 PM EDT 06/28/2015 4:25 PM EDT Narrative Resulting Agency Comment Spec In Lab Tremaine Rock MD CHEMISTRY ORDERABLE S [facility] [place] [address] * Ferritin (06/28/2015 4:22 PM EDT) Ferritin 152 30 - 400 ng/mL [facility] Comment: Pediatric reference ranges not verified at [facility], interpret with caution. Reference ranges for females greater than 50 years of age approach values for men, i.e., 30-400 ng/mL. Blood specimen (specimen) 06/28/2015 4:22 PM EDT 06/28/2015 4:25 PM EDT Narrative Resulting Agency Comment Spec In Lab Tremaine Rock MD CHEMISTRY ORDERABLE S [facility] [place] [address] documented in this encounter Visit Diagnoses Diagnosis NAFLD (nonalcoholic fatty liver disease) Other chronic nonalcoholic liver disease Cirrhosis of liver without ascites, unspecified hepatic cirrhosis type NAFLD (nonalcoholic fatty liver disease) Other chronic nonalcoholic liver disease Cirrhosis of liver without ascites, unspecified hepatic cirrhosis type NAFLD (nonalcoholic fatty liver disease) Other chronic nonalcoholic liver disease Cirrhosis of liver without ascites, unspecified hepatic cirrhosis type documented in this encounter Care Teams Qa Consultant Relationship Specialty Start Date End Date Salome Lopez APRN [address] [place] [address] PCP - General Family Medicine 05/30/15 documented as of this encounter
--- OUTSIDE RECORDS SUMMARY | 2023-12-02 18:37 | XMS_ITS | Clinical Summary ---
Author Organization [facility] Address [address] [place] [address] Care Team Providers Care Laborer Landscape Name Role Phone Salome Mcarthur PERSONNEL ANALYST Primary Care Provider [phone] Allergies Active Allergy Reactions Criticality Noted Date [...] Additional Information Patient not taking.Reported on 03/16/2020 Fithian-3 Fatty Acids-Vitamin E (FISH OIL) 1,000 mg [...] 1 TABLET BY MOUTH AT NIGHT Active MindmancerTOUCH ULTRA TEST test strips USE 1 STRIP [...] daily for 7 days. 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 Overview: H/o - cxr IBS (irritable bowel syndrome) 03/09/2009 Hyperlipidemia 03/09/2009 Rosacea 03/09/2009 Restless legs syndrome 03/09/2009 Migraine 03/09/2009 Encounters Date Type Department Care Team Description 11/03/2023 9:30 EDT [facility] [address] [place] [address] Jess Ferguson, JEIMY Intertrigo (Primary Dx) 10/25/2023 Lab Requisition [facility] Pathology & Laboratory Medicine - [address] [address] Outr Resulting Lab, Provider 10/17/2023 Documentation Visit [address] [address] Kal Clark, PT 09/05/2023 Plan of Care Documentation [address] [address] from Last 3 Months Immunizations Name Administration Dates Next Due Influenza (whole) 01/12/2008 Pneumococcal Polysaccharide (PPSV23) Vaccine (PNEUMOVAX-23) =>2YO SQ/IM 07/01/2006,03/11/2001 Td 02/07/1996 Tdap Vaccine =>7YO IM 07/01/2006 Surgical History Surgery Date Site/Laterality Comments APPENDECTOMY CHOLECYSTECTOMY lap, Dr. Marc RAMIREZ AND BSO 88 INTRACAPSULAR CATARACT EXTRACTION bilateral TUBAL LIGATION bilateral SKIN BIOPSY benign nevus bx Right buttock; Dr. Villegas TUBAL LIGATION CYSTOSCOPY 09/19/2010, 04/17/2011 no evidence trans cell ca Medical History Medical History Date Comments Gastritis and duodenitis history of due to NSAIDS Diabetes mellitus (HCC-CMS) Cancer ([facility]) Hearing loss Rectocele 05/18/2011 Mixed incontinence urge and stress 05/18/2011 Cystocele 07/03/2011 Family History Medical History Relation Comments Cancer Brother bladder prostate Thyroid Disease Mother Relation Status Comments Brother Mother Social History Tobacco Use Types Packs/Day Years [...] 14:15 EST Sexual Orientation Not on file Obstetrics History Last Filed Vital Signs Vital Sign Reading [...] Body Mass Index 27.89 08/14/2011 1338 EDT Plan of Treatment Health Maintenance Due Date Last Done Comments Eye Exam 1941 Foot Exam 1941 Hemoglobin A1C (Ha1C) 1941 Microalbumin/Creatinine Ratio 1941 Lipid Profile Screening (Cholesterol) 1944 RSV Immunization ( o r 60+ Years) (1 - 1-dose 60+ series) 2001 Fall Risk Screening 03/16/2021 03/16/2020 COVID-19 Vaccine (2022-2 4 season) 2023 01/30/2023, 09/19/2022, 03/05/2022, Additional history exists Procedures Procedure Name Priority Date/Time Associated Diagnosis Comments MOLECULAR VAGINITIS/VAGINOSIS ASSAY Routine 10/25/2023 11:00 EDT from Last 3 Months Results * (ABNORMAL) MOLECULAR VAGINITIS/VAGINOSIS ASSAY (10/25/2023 11:00 EDT) Wendy Species Positive(A) Negative 10/26/19 12:46 EDT [facility] Wendy glabrata Positive(A) Negative 10/26/2023 12:46 EDT [facility] Trichomonas Vaginalis Negative Negative 10/26/2023 12:46 EDT [facility] BV (Bacterial vaginosis) Negative Negative 10/26/2023 12:46 EDT [facility] Swab VAGINAL STRUCTURE / Unknown 10/25/2023 11:00 EDT 10/25/2023 22:59 EDT Provider Outr Resulting Lab MICROBIOLOGY - GENERAL ORDERABLES [facility] [address] [place] [address] from Last 3 Months Advance Directives For more information, please contact: [phone] * Full Code (Latest Code Status on File) Date Activated Date Inactivated Comments 08/21/2011 16:46 08/22/2011 17:10 Care Teams Laborer Landscape Relationship Specialty Start Date End Date Salome Mcarthur, JEIMY [address] [facility] [place] [address] PCP - General 03/14/20
--- OUTSIDE RECORDS SUMMARY | 2023-12-02 18:37 | XMS_ITS | Encounter Summary ---
Author Organization [facility] Address [facility] [place] [address] Care Team Providers Care Heel Seat Fitter Machine Name Role Phone Lizbet Zhang APRN Primary Care Provider + Encounter Details Date Type Department Care Team (Late st Contact Info) Description 07/12/2012 Telephone Obstetrics [place] [phone] Tina Norwood MD [facility] DR OBSTETRICS & [place] [address] Social History Tobacco Use Types Packs/Day Years [...] encounter Miscellaneous Notes * Telephone Encounter - Tina Norwood MD - 07/12/2012 1:16 PM EDT TELEPHONE NOTE Date of call: 07/12/2012 Time of call: 1:16 PM Caller: self Reason for call: discuss pathology Pt was seen last week for a posterior vaginal wall lesion which was sent for cytology and a tichlerbiopsy was obtained. Both returned as normal, negative for malignancy. ---Pathologic Diagnosis--- Vaginal wall, posterior, biopsy: Benign squamous mucosa with inflammed granulation tissue. ---Cytopathologic Diagnosis--- NORMAL Negative for Intraepithelial Lesion or Malignancy (NILM). Assessment: Biopsy of posterior vaginal wall was negative for malignancy. Plan/Instructions: No further medical facilities section director evaluation needed for this. TINA NORWOOD MD, PGY3 documented in this encounter Plan of Treatment Upcoming Encounters Date Type Department Care Team (Late st Contact Info) Description 02/06/2024 11:30 AM EDT Appointment Ultrasound at [place] [phone] Molly Cui, [facility] [place] [address] 02/06/2024 12:15 PM EDT Laboratory Appointment Lab [address] [phone] 02/06/2024 1:30 PM EDT Office [place] [phone] Molly Cui, [facility] [place] [address] documented as of this encounter Visit Diagnoses Not on filedocumented in this encounter Care Teams Heel Seat Fitter Machine Relationship Specialty Start Date End Date Lizbet Zhang APRN PCP - General 06/30/12 05/29/15 documented as of this encounter
--- OUTSIDE RECORDS SUMMARY | 2023-12-02 18:37 | XMS_ITS | Encounter Summary ---
Author Organization [facility] Address [address] [place] [address] Care Team Providers Care Laundry Press Operator Name Role Phone Salome Mcarthur RESERVATION SALES AGENT Primary Care Provider [phone] Encounter Details Date Type Department Care Team (Late st Contact Info) Description 01/17/2021 Lab Requisition [facility] Pathology & Laboratory Medicine - [address] [address] Outr Resulting Lab, Provider Social [...] Procedure Name Priority Date/Time Associated Diagnosis Comments VITAMIN B12 Routine 01/17/2021 12:56 EDT documented in this encounter Results * VITAMIN B12 (01/17/2021 12:56 EDT) Vitamin B12 621 211 - 911 pg/mL 01/17/2021 21:53 EDT [facility] Blood VENOUS BLOOD / Unknown 01/17/2021 12:56 EDT 01/17/2021 21:02 EDT Provider Outr Resulting Lab CHEMISTRY & BLOOD GAS ORDERABLES [facility] [address] [place] [address] documented in this encounter Visit Diagnoses Not on filedocumented in this encounter Care Teams Laundry Press Operator Relationship Specialty Start Date End Date Salome Mcarthur, JEIMY [address] [place] [address] PCP - General 03/14/20 documented as of this encounter
--- OUTSIDE RECORDS SUMMARY | 2023-12-02 18:38 | XMS_ITS | Encounter Summary ---
Author Organization [facility] Address [address] [place] [address] Care Team Providers Care Supervisor Lump Room Name Role Phone Lizbet Zhang AUTO WINDER Primary Care Provider [phone] Encounter Details Date Type Department Care Team (Latest Contact Info) Description 05/04/2013 17:05 EST - 05/04/2013 23:59 EST Hospital Encounter [facility] [address] [place] [address] Unknown, Provider, Discharge Disposition: Home or Self Care Social History Tobacco Use Types Packs/Day Years Used Date Smoking Tobacco: Never Smokeless Tobacco: Never Alcohol Use Standard Drinks/Week Comments No 0 (1 standard drink = 0.6 oz pur e alcohol) Sex and Gender Information Value Date Recorded [...] Yes 08/21/2011 documented as of this encounter Medications at Time of Discharge Medication Sig Dispensed Refills Start Date End Date acetaminophen (TYLENOL) 650 mg tablet Take 1 Tab by mouth every 6 hours as needed for Pain. 08/22/2011 BUTALBITAL/ASPIRIN/CAFF EINE (FIORINAL ORAL) Take by mouth 2 times daily as needed. clonazepam (KLONOPIN) 0.5 mg tablet Take 1 Tab by mouth at bedtime. 90 Tab 4 06/06/2009 docusate sodium (COLACE) 100 mg capsule Take 1 Cap by mouth 2 times daily. 08/22/2011 fexofenadine (JESÚS) 60 mg tablet Take 180 mg by mouth daily. lisinopril (PRINIVIL, ZESTRIL) 10 mg tablet Take 1 Tab by mouth daily. 90 Tab 4 06/06/2009 metformin (GLUCOPHAGE) 1,000 mg tablet Take 1 Tablet by mouth 2 times daily with breakfast and dinner. MULTIVITAMINS (MULTIVITAMIN ORAL) Take 1 Tab by mouth daily before breakfast. Fruita-3 Fatty Acids-Vitamin E (FISH OIL) 1,000 mg Cap Take by mouth daily. amitriptyline (ELAVIL) 100 mg tablet Take 1 Tab by mouth at bedtime. 90 Tab 4 06/06/2009 08/04/2023 cephALEXin (KEFLEX) 500 mg capsule Take 1 Cap by mouth 4 times daily. 40 Cap 0 08/27/2011 03/16/2020 fluconazole (DIFLUCAN) 150 mg tablet Take 1 Tab by mouth daily. Take first dose on day 5 of ABX therapy, second dose on day 8. 2 Tab 0 08/27/2011 03/16/2020 gabapentin (NEURONTIN) 300 mg capsule Take 1 Cap by mouth 3 times daily. 270 Cap 4 06/06/2009 08/04/2023 documented as of this encounter Discharge Disposition Disposition Code Departure Means Destination Home or Self Skilled Nursing documented in this encounter Plan of Treatment Not on file documented as of this encounter Visit Diagnoses Not on filedocumented in this encounter Care Teams Supervisor Lump Room Relationship Specialty Start Date End Date Lizbet Zhang [place] [address] PCP - General 02/24/13 03/13/20 documented as of this encounter
--- OUTSIDE RECORDS SUMMARY | 2023-12-02 18:38 | XMS_ITS | Encounter Summary ---
Author Organization [facility] Address [address] [place] [address] Care Team Providers Care Water Project Manager Name Role Phone Avel Rivera MD Primary Care Provider Unav ailable Encounter Details Date Type Department Care Team (Late st Contact Info) Description 11/05/2007 Before PRISM Converted Visit (Maple) [facility] - Maple conversion [address] [place] [address] Avel Rivera MD Social History Tobacco Use Types Packs/Day Years Used Date Smoking Tobacco: Never Assessed Sex and Gender Information Value Date Recorded Sex Assigned at Not on file Gender Identity Female 02/14/2022 14:15 EST Sexual Orientation Not on file documented as of this encounter Progress Notes * Avel Rivera MD - 01/07/2009 1202 EDT [facility] PROGRESS/FOLLOWUP NOTE - 11/05/2007 PROBLEM Foot pain. SUBJECTIVE Mrs. Corbett is here to discuss increasing pain in both feet. She has had this problem for five or six years and has been treated for both diabetic neuralgia, and plantar fasciitis. It particularly bothers her after standing for one half hour, and she usually gets relief lying in bed. It most athe bottoms of her feet, but particularly lately at the base of the toes. She has been taking Neurontin 400 mg daily for quite sometime. She describes a burning, prickling sensation in the bottoms. Her chem strips have been quite stable, but she is due for a glycohemoglobin test. She takes no diabetes medications. MEDICATIONS Her medications are: 1. Amitriptyline 100 mg at bedtime. 2. Clonazepam 0.5 mg at bedtime. 3. Fiorinal p.r.n. headache. 4. Neurontin 200 mg b.i.d. 5. Atenolol 50 mg. 6. Lisinopril 5 mg. 7. Aspirin 81 mg. starting lisinopril, she has had a bit of a nagging cough and she wonders if it is a combination with atenolol that has done that. She tried cutting back atenolol and this did improve her cough. She wonders about getting off of the atenolol. OBJECTIVE BP 128/60, pulse 80. Extremities: No ankle edema. Normal color and temperature to both feet. Normal capillary refilling.She has strong DP and 1+ PT pulses bilaterally. Normal sensation in the bottoms of feet to nylon. No skin lesions. No significant pain on plantar stretching. ASSESSMENT Foot pain, probable diabetic neuralgia. Hypertension, stable. Diet-controlled diabetes. PLAN We will obtain a fasting blood test, increase gabapentin to 200 mg t.i.d. She may cut back the atenolol to 25 mg daily. Report if not improved in two or three weeks. I will see her for a followup andextended examination in three months. Signed by Avel Rivera MD 11/24/2007 12:03 Avel Rivera MD P Job ID [id number] P/FELY Doc ID [id number] cc: cc: documented in this encounter Plan of Treatment Not on file documented as of this encounter Visit Diagnoses Not on filedocumented in this encounter Care Teams Water Project Manager Relationship Specialty Start Date End Date Avel Rivera MD PCP - General 09/03/08 07/10/09 documented as of this encounter
--- OUTSIDE RECORDS SUMMARY | 2023-12-02 18:38 | XMS_ITS | Encounter Summary ---
Author Organization [facility] Address [address] [place] [address] Care Team Providers Care Nanny/Household Manager Name Role Phone LeathaLizbet UNCLAIMED PROPERTY MANAGER Primary Care Provider [phone] Reason for Visit * Reason Comments New Patient Visit Encounter Details Date Type Department Care Team (Late st Contact Info) Description 02/24/2013 12:45 EST Office Visit [facility] Infectious Disease - [address] [id number] iNlo Baltazar MD [address] [place] [address], [address] [place] [address] Nubia Krause DO Candidiasis of vulva and vagina (Primary Dx); Candidiasis of mouth Discharge Disposition: Auto Discharge Social History Tobacco Use Types Packs/Day Years [...] Sign Reading Time Taken Comments Blood Pressure 121/70 02/24/2013 1250 EST Pulse - - Temperature 35.8 ??C (96.5 ??F) 02/24/2013 1250 EST Respiratory Rate - - Oxygen Saturation - - Inhaled Oxygen Concentration - - Weight 69.2 kg (152 lb 8 oz) 02/24/2013 1250 EST Height - - Body Mass Index 27.89 08/14/2011 1338 EDT documented in this encounter Functional Status Cognitive Status Response Date of Assessm ent Because of a physical, menta l, or emotional condition, do you have serious difficulty concentrating, remembering, or making decisions? (5 years old or older) Yes 08/21/2011 documented as of this encounter Discharge Diagnoses Diagnosis 112.1 CANDIDAL VULVOVAGINITIS[ICD-9-CM] 112.0 THRUSH[ICD-9-CM] documented in this encounter Discharge Disposition Disposition Code Departure Means Destination Auto Discharge documented in this encounter Progress Notes * Nubia Krause, DO - 02/25/2013 1324 EST Division of Infectious Disease New Patient Evaluation Date: 02/24/13 Reason for Consult/Chief Complaint: Asked by Dr Rivera to see patient for recurrent vaginal and oral yeast infection HPI: 72 year old female with history of DM, bladder cancer five years ago, surgical tumor removal, chemotherapy into the bladder, incontinence, cystocele and rectocele repaired last year, self cath since August of this year, started developing yeast infections about 4-5 years ago. She experiences vaginal or vulvar itching and burning, no discharge which improve with fluconazole. She would normally take a200mg tablet once a week, for one or sometimes several subsequent weeks. She also used to take 150 mg tablet and take it for about 3 days as a single course of treatment. She tried over the counter topical treatments, but those are not helpful. She is usually symptom free from anywhere 1-3 weeks before infection reoccurs. She also experiences thrush, she describes white coating that she can scrape off her tongue and mouth. The episodes of thrush may occur at the same time as vaginal/vulva symptoms or independently. Thrush gets better with nystatin, swish and swallow. She has no dysphagia or od ynophagia with these episodes, but sometimes notices a hoarse voice. She notes that her symptoms worsen with antibiotics. She gets UTI a few times per year and when she is placed on antibiotics, her yeast infections are much more severe and last longer. The last time she was on antibiotics, ciprofloxacin, was at the end of January of this year. However, even if she is not on antibiotics, which ismost of the time, she still gets recurrent infections. For self cathing she uses reusable catheters, and adheres to good hygene. She believes her DM is under good control. She is not very good about checking daily sugars, checking those maybe several times weekly. The numbers on average are 130-140. HgA1C measurement is not available on PRISM, but she remembers that her numbers are decreasing. She has been on hormone replacement therapy during menopause, but since she stopped, she has been experiencing significant vaginal dryness. She has a history of abnormal PAPs and does not remember the last time she had a pelvic exam. She is not on any steroids or other immunosuppressive drugs. She denies any other frequent or recurrent skin infections, URI, PNA. PMHx: has a past medical history of Gastritis and duodenitis; Diabetes mellitus; Cancer; Hearing loss; Rectocele (05/18/2011); Mixed incontinence urge and stress (05/18/2011); and Cystocele (07/03/2011). 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 Bladder CA tumor removal 2007 Soc Hx: Lives in [place]. Denies smoking, drinking alcohol. Fam Hx: Cirrhosis ?cause ?autoimmune. No history of recurrent yeast infections or frequent infections. Meds: Medications reconciled via PRISM. Allergies:Dale inhibitors; Atenolol; Bactrim; Codeine; Dilaudid; Erythromycin; and Latex, natural rubber ROS: Remainder of 10 point ROS is negative. Objective: BP 121/70 Temp(Src) 35.8 ??C (96.5 ??F) (Tympanic) Wt 69.174 kg (152 lb 8 oz) BMI 27.89 kg/m2 GEN: AAOX3, NAD, very pleasant HEENT: no thrush, no oral lesions, partial dentures COR: regular Lungs: CTA b/l Abd: soft, NT, ND Neuro: no focal deficits Mssk: no joint effusions Lymph: no cervical, axillary lymphadenopathy Integument: no rash, axilla, breast folds, inguinal all clear without evidence of yeast infection : vulva with normal appearance, no erythema, no genital lesions Laboratory Data: Urinalysis from 01/28 and 09/02 reviewed. No other recent data provided. Impression: 1) Recurrent yeast infections. She is diabetic, has history of vaginal dryness, incontinence, self cath, she is wearing dentures--all of those are risk factors that would predispose her to recurrent infections. She has no history of autoimmune disease, not sure that she has chronic mucocutaneous candidiasis. She should have an HIV test, and we can check immunoglobulins for completeness. She should optimize hygiene during self cath. If she develops UTI, we would recommend performing culture and sensitivity and try to use the most narrow spectrum antibiotic. It would be beneficial to get evaluated by SAMPLING EXPERT, or if PCP could perform pelvic exam and advise on managing vaginal dryness. The chances of having resistant candidal infection in immunocompetent individual are extremely low. Also, it would be helpful for her to get examined during those episodes to make certain that she really has thrush and/or vaginal yeast infection. For treatment, she can try lower dose fluconazole for 3 subsequent days rather than once weekly. 2) DM 3) Incontinence, self-cath 4) H/o bladder CA with prior surgery and chemotherapy 5) Vaginal dryness Recommendations/Plan: 1. Please, offer patient a three day supply of 100 mg PO fluconazole for episodic treatment with several refills 2. Please, draw following labs (she would like to have those drawn at [facility] on her next PCP visit): HgA1C (if not done), CBC with differential, Immunoglobulins, HIV Ab 3. SAMPLING EXPERT eval for vaginal dryness/pelvic exam 4. F/u with urology for incontinence issues 5. F/u in ID clinic as needed Nubia Krause, 02/25/2013 13:24 Attestation statement: I discussed the patient with the resident/fellow at the time of the visit. Sindhuee with the findings and the plan of care documented in the resident's/fellow's note. Giovanny documented in this encounter Plan of Treatment Not on file documented as of this encounter Visit Diagnoses Diagnosis Candidiasis of vulva and vagina- Primary Candidiasis of mouth documented in this encounter Care Teams Nanny/Household Manager Relationship Specialty Start Date End Date Lizbet Zhang, INDIRA [address] [place] [address] PCP - General 02/24/13 03/13/20 documented as of this encounter
--- OUTSIDE RECORDS SUMMARY | 2023-12-02 18:38 | XMS_ITS | Encounter Summary ---
Author Organization [facility] Address [address] [place] [address] Care Team Providers Care Fleet Operations Manager Name Role Phone Agustin Ramires MD Primary Care Provider [phone] Encounter Details Date Type Department Care Team (Late st Contact Info) Description 04/21/2010 Abstract Used for ABSTRACTING Data [phone] Agustin Ramires MD [address] [place] [address] Social History Tobacco Use Types Packs/Day Years Used Date Smoking Tobacco: Never Alcohol Use Standard Drinks/Week Comments Not Asked 0 (1 standard drink = 0.6 oz pur e alcohol) Sex and Gender Information Value Date Recorded Sex Assigned at Not on file Gender Identity Female 02/14/2022 14:15 EST Sexual Orientation Not on file documented as of this encounter Plan of Treatment Not on file documented as of this encounter Visit Diagnoses Not on filedocumented in this encounter Care Teams Fleet Operations Manager Relationship Specialty Start Date End Date Agustin Ramires MD [address] [place] [address] PCP - General 07/11/09 05/16/10 documented as of this encounter
--- OUTSIDE RECORDS SUMMARY | 2023-12-02 18:38 | XMS_ITS | Encounter Summary ---
Author Organization [facility] Address [address] [place] [address] Care Team Providers Care Wardrobe Coordinator Name Role Phone Agustin Ramires MD Primary Care Provider [phone] Unknown, Provider Primary Care Provider [phone] Agustin Ramires MD Primary Care Provider [phone] Kayleigh Peña Primary Care Provider [phone] Agustin Ramires MD Primary Care Provider [phone] Lizbet Zhang Primary Care Provider [phone] Encounter Details Date Type Department Care Team (Late st Contact Info) Description 11/09/[address] [facility] Lab - Main [address] [address] Leland Boykin MD Social History Tobacco Use Types Packs/Day [...] Procedure Name Priority Date/Time Associated Diagnosis Comments CYTOLOGY (NON-GYNECOLOGIC INCLUDING FLUIDS AND FINE NEEDLE ASPIRATION)- ORDER ONLY Routine 11/09/2009 documented in this encounter Results * CYTOLOGY (NON-GYNECOLOGIC INCLUDING FLUIDS AND FINE NEEDLE ASPIRATION)- ORDER ONLY (11/09/2009) 11/09/2009 11/09/2009 17: [address] [facility] - 11/10/2009 13:18 EDT ----- ------- Name: MILKA MENDIETA ?: 42 ?Age/Sex: 78/F ?Unit#: [id number] ? Loc: LAB.OPX ? Status: REG REF ?? Reg Date: 11/09/09 ? Pt.Phone Number: ? ----- ------- Specimen: [id number] ? STATUS: SOUT ?Spec Date:11/09/09 ? Physician Copies: ?Leland Boykin MD ?? Tissues: ? Urine (CLEAN CATCH) ? CPT: 73447 ?? Units: ??1 ----- ------- ?? NON ATTRACTIONS ASSOCIATE CYTOLOGY DIAGNOSIS URINE, VOIDED Benign urothelial cells. ??Degenerative urothelial cells. ----- ------- ?CLINICAL HISTORY S/P CYSTO TUR-BT FOR TCC ?? BCG RX ----- ------- ? SPECIMEN DESCRIPTION ? 40ML CLEAR PALE YELLOW FLUID ?? 30ML PROCESSED ?1 CYTOSPIN Signed ____(signature on file)____ Anjel De La Torre M.D. 11/10/09 ?? By the signature above, the attending physician certifies that he/she has personally conducted a gross and/or microscopic examination of the described specimens and rendered or confirmed the above diagnosis. Test Performed by [facility], [address] [facility] [address] Senior Recruitment Consultant: Namrata Childs MD PHD ----- ------- Leland Boykin MD PATHOLOGY ORDERABLES [facility] documented in this encounter Visit Diagnoses Not on filedocumented in this encounter Care Teams Wardrobe Coordinator Relationship Specialty Start Date End Date Agustin Ramires MD [address],[facility] 2 [place] [address] PCP - General 07/11/09 05/16/10 Unknown, MD Nkechi PCP - General 05/17/10 02/07/11 Agustin Ramires MD [address],[facility] 2 [place] [phone] PCP - General 02/08/11 05/15/11 Kayleigh Peña PA [address] [facility] [address] [place] [address] PCP - General 05/16/11 08/19/11 Agustin Ramires MD [address] [place] [address] PCP - General 08/20/11 02/23/13 Lizbet Zhang, QUALITY CHECKER [address] [facility] [place] [address] PCP - General 02/24/13 03/13/20 documented as of this encounter
--- OUTSIDE RECORDS SUMMARY | 2023-12-02 18:38 | XMS_ITS | Encounter Summary ---
Author Organization [facility] Address [address] [place] [address] Care Team Providers Care Nitrocellulose Maker Name Role Phone Agustin Ramires MD Primary Care Provider [phone] Unknown, Provider Primary Care Provider [phone] Agustin Ramires MD Primary Care Provider [phone] Kayleigh Peña Primary Care Provider [phone] Agustin Ramires MD Primary Care Provider [phone] Lizbet Zhang Primary Care Provider [phone] Encounter Details Date Type Department Care Team (Late st Contact Info) Description 03/08/2010 Historical Results Only [facility] Lab - Main [address] [address] Leland Boykin MD Social History Tobacco Use [...] AND FINE NEEDLE ASPIRATION)- ORDER ONLY Routine 03/08/2010 documented in this encounter Results * CYTOLOGY (NON-GYNECOLOGIC INCLUDING FLUIDS AND FINE NEEDLE ASPIRATION)- ORDER ONLY (03/08/2010) 03/08/2010 03/09/2010 10: 05 EST Narrative [facility] - 03/09/2010 14:09 EST ----- ------- Name: MILKA MENDIETA ?: 42 ?Age/Sex: 78/F ?Unit#: [id number] ? Loc: LAB.OPX ? Status: REG REF ?? Reg Date: 03/08/10 ? Pt.Phone Number: ? ----- ------- Specimen: [id number] ?STATUS: SOUT ?Spec Date:03/08/10 ? Physician Copies: ?Leland Boykin MD ?? Tissues: ? Urine (CLEAN CATCH URINE-VOIDED) ? CPT: 95272 ?? Units: ??1 ----- ------- ?? NON WATCH BAND ASSEMBLER CYTOLOGY DIAGNOSIS Urine, voided: - No malignant cells identified. - Cellular specimen with benign urothelial and squamous cells present. 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 SPECIMEN DESCRIPTION ? 30ML SL CLOUDY YELLOW FL, 30ML PROC, 1CYTOSPIN Signed ____(signature on file)____ Namrata Childs M.D. 03/09/10 By the signature above, the attending physician certifies that he/she has personally conducted a gross and/or microscopic examination of the described specimens and rendered or confirmed the above diagnosis. Test Performed by [facility], [address] [place] [address] Grain Mixer: Namrata Childs MD PHD ----- ------- Leland Boykin MD PATHOLOGY ORDERABLES [facility] documented in this encounter Visit Diagnoses Not on filedocumented in this encounter Care Teams Nitrocellulose Maker Relationship Specialty Start Date End Date Agustin Ramires MD [address] ,[facility] 2 [place] [address] PCP - General 07/11/09 05/16/10 Deandre, MD Nkechi PCP - General 05/17/10 02/07/11 Agustin Ramires MD [facility] [address] ,[facility] 2 [place] [address] PCP - General 02/08/11 05/15/11 Kayleigh Peña PA [address] [facility] [address] [place] [address] PCP - General 05/16/11 08/19/11 Agustin Ramires MD [address] ,[facility] 2 [place] [address] PCP - General 08/20/11 02/23/13 Lizbet Zhang FNP [address] [place] [address] PCP - General 02/24/13 03/13/20 documented as of this encounter
--- OUTSIDE RECORDS SUMMARY | 2023-12-02 18:38 | XMS_ITS | Encounter Summary ---
Author Organization [facility] Address [address] [place] [address] Care Team Providers Care Engineering Systems Analyst Name Role Phone Agustin Ramires MD Primary Care Provider [phone] Reason for Visit * Reason Onset Date Comments Fever 08/27/2011 Encounter Details Date Type Department Care Team (Late st Contact Info) Description 08/27/2011 Telephone [facility] Pelvic Medicine and Reconstructive Surgery - Medical Office [facility] [address] [place] [address] Tim Molina MD [address] [place] [address] Fever Social History Tobacco Use Types Packs/Day Years [...] Yes 08/21/2011 documented as of this encounter Ordered Prescriptions Prescription Sig Dispensed Refills Start Date End Da te fluconazole (DIFLUCAN) 150 mg tablet Take 1 Tab by mouth daily. Take first dose on day 5 of ABX therapy, second dose on day 8. 2 Tab 0 08/27/2011 03/16/2020 cephALEXin (KEFLEX) 500 mg capsule Take 1 Cap by mouth 4 times daily. 40 Cap 0 08/27/2011 03/16/2020 documented in this encounter Miscellaneous Notes * Telephone Encounter - Lexy Hill RN - 08/27/2011 1124 EDTAddended by: LEXY HILL on: 08/27/2011 11:24 Modules accepted: Orders * Telephone Encounter - Lexy Hill RN - 08/27/2011 1118 EDT D/W Dr. Molina. Will initiate Keflex 500 mg QID x 10 days. Nursing appointment to check progress later in week. Patient advised to keep incision clean and dry. Incision is in skin fold therefore mayneed to place a thin gauze in fold to wick away moisture. Pt. Instructed NOT to use any powders or ointments. * Telephone Encounter - Lexy Hill RN - 08/27/2011 1037 EDT Patient calling to report that right side of incision line is reddened and slightly inflamed with erythema in surrounding tissues. Line slightly tender, patient unable to express any drainage when incision gently pressed. Is taking Tylenol therefore temp. was only slightly elevated at 99.8. Will check with Dr. Molina and call pt. back. * Telephone Encounter - Katherine Luna - 08/27/2011 1015 EDT Patient had surgery on 08.21.11 and her incision is red and she is running a fever. Over the week her fever was 99.8 and today 98.7. She would like to speak with nurse. documented in this encounter Plan of Treatment Not on file documented as of this encounter Visit Diagnoses Not on filedocumented in this encounter Care Teams Engineering Systems Analyst Relationship Specialty Start Date End Date Agustin Ramires MD [address] [place] [phone] PCP - General 08/20/11 02/23/13 documented as of this encounter
--- OUTSIDE RECORDS SUMMARY | 2023-12-02 18:38 | XMS_ITS | Encounter Summary ---
Author Organization [facility] Address [address] [place] [address] Care Team Providers Care Spinner Fixer Name Role Phone Agustin Ramires MD Primary Care Provider [phone] Reason for Visit * Reason Comments Wound Infection Wound check Encounter Details Date Type Department Care Team (Late st Contact Info) Description 08/31/2011 13:30 EDT Nurse Only [facility] Pelvic Medicine and Reconstructive Surgery - Medical Office [facility] [address] [place] [address] Unknown, Provider, Tim Molina MD [address] [place] [phone] Nurse, [facility] Mob Pelvic Med Social History Tobacco Use Types Packs/Day Years [...] as of this encounter Progress Notes * Nancy Padron RN - 08/31/2011 8538 EDT Pt is s/p Pubovaginal sling with autologous rectus fascia, cystocele repair, rectocele repair and cystoscopy. Pt developed a wound infection post op along abd incision. Pt is on day 5 of 10 day course of Keflex. Pt is here today for a wound check. Left side of incision slightly open and slightly red but otherwise appearing to be healing well. No drainage or fever. Pt states incision looks better since she started abx. Incision in a crease below a fat roll. Pt advised to use gauze along the incision to prevent heat and moisture build up. Pt states she has been having diarrhea which is not new for her but does seem to be worse since surgery and she states her rectum is quite sore. I mentioned that abx can contribute to diarrhea. I suggested she increase her fiber intake to help add bulk to her stool and I gave her some calmoseptine ointment to help protect her skin. Otherwise pt states she is doing quite well and is slowly increasing her activity. documented in this encounter Plan of Treatment Not on file documented as of this encounter Visit Diagnoses Not on filedocumented in this encounter Discontinued Medications Medication Sig Discontinue Reason Start Date End Da te HYDROmorphone (DILAUDID) 2 mg tablet Take 1-2 Tabs by mouth every 4 hours as needed for Pain. Allergic reaction 08/22/2011 08/31/2011 documented as of this encounter Care Teams Spinner Fixer Relationship Specialty Start Date End Date Agustin Ramires MD [facility] [address] [phone] PCP - General 08/20/11 02/23/13 documented as of this encounter
--- OUTSIDE RECORDS SUMMARY | 2023-12-02 18:38 | XMS_ITS | Encounter Summary ---
Author Organization [facility] Address [address] [place] [address] Care Team Providers Care Lens Assorter Name Role Phone Unknown, Provider Primary Care Provider [phone] Agustin Ramires MD Primary Care Provider [phone] Kayleigh Peña Primary Care Provider [phone] Agustin Ramires MD Primary Care Provider [phone] Lizbet Zhang CHIEF NURSE ANESTHETIST Primary Care Provider [phone] Encounter Details Date Type Department Care Team (Late st Contact Info) Description 09/13/2010 Historical Results Only [facility] [place] [address] [address] Leland Boykin MD Social History Tobacco Use [...] AND FINE NEEDLE ASPIRATION)- ORDER ONLY Routine 09/13/2010 documented in this encounter Results * CYTOLOGY (NON-GYNECOLOGIC INCLUDING FLUIDS AND FINE NEEDLE ASPIRATION)- ORDER ONLY (09/13/2010) 09/13/2010 09/14/2010 9:1 8 EDT Narrative [facility] - 09/19/2010 16:59 EDT ----- ------- Name: MILKA MENDIETA ?: 42 ?Age/Sex: 78/F ?Unit#: [id number] ? Loc: LAB.OPX ? Status: REG REF ?? Reg Date: 09/14/10 ? Pt.Phone Number: ? ----- ------- Specimen: [id number] ? STATUS: SOUT ?Spec Date:09/13/10 ? Physician Copies: ?Leland Boykin MD ?? Tissues: ? Urine (VOID) ? CPT: 72765 ?? Units: ??1 ----- ------- ?? NON MACHINE ACCOUNTANT CYTOLOGY DIAGNOSIS Urine, voided: - Cellular specimen with many bland appearing urothelial and squamous cells present in ??single cell distribution (no papillary groupings). - Acute inflammatory cells noted in the background. - No high grade malignant features identified. ----- ------- ? SPECIMEN DESCRIPTION ? 30ML CLEAR LIGHT YELLOW FLUID ? 1 CYTOSPIN Signed ____(signature on file)____ Namrata Childs M.D. 09/19/10 By the signature above, the attending physician certifies that he/she has personally conducted a gross and/or microscopic examination of the described specimens and rendered or confirmed the above diagnosis. Test Performed by [facility], [address] [address] Energy Engineer: Namrata Childs MD PHD ----- ------- Leland Boykin MD PATHOLOGY ORDERABLES [facility] documented in this encounter Visit Diagnoses Not on filedocumented in this encounter Care Teams Lens Assorter Relationship Specialty Start Date End Date Unknown, ProviderMD PCP - General 05/17/10 02/07/11 Agustin Ramires MD [address],[facility] 2 [place] [address] PCP - General 02/08/11 05/15/11 Kayleigh Peña PA [address] [place] [address] PCP - General 05/16/11 08/19/11 Agustin Ramires MD [address],[facility] 2 [place] [address] PCP - General 08/20/11 02/23/13 Lizbet Zhang FNP [address] [place], [place] [address] PCP - General 02/24/13 03/13/20 documented as of this encounter
--- OUTSIDE RECORDS SUMMARY | 2023-12-02 18:38 | XMS_ITS | Encounter Summary ---
Author Organization [facility] Address [address] [place] [address] Care Team Providers Care Hospital Supervisor Name Role Phone Unknown, Nkechi GALLO Primary Care Provider [phone] Agustin Ramires MD Primary Care Provider [phone] Kayleigh Peña Primary Care Provider [phone] Agustin Ramires MD Primary Care Provider [phone] Lizbet Zhang TURF KEEPER Primary Care Provider [phone] Salome Mcarthur BARBERING TEACHER Primary Care Provider [phone] Encounter Details Date Type Department Care Team (Late st Contact Info) Description 05/17/2010 Telephone [facility] [address] [place], [place] [id number] Montrell Jaeger MD [address] [facility] [address] [place] [address] Social History Tobacco Use Types Packs/Day Years [...] on filedocumented in this encounter Care Teams Hospital Supervisor Relationship Specialty Start Date End Date Unknown, Provider, PCP - General 05/17/10 02/07/11 Agustin Ramires MD [address] ,[facility] 2 [place] [phone] PCP - General 02/08/11 05/15/11 Kayleigh Peña PA [address] [place] [address] PCP - General 05/16/11 08/19/11 Agustin Ramires MD [address] ,[facility] 2 [place] [phone] PCP - General 08/20/11 02/23/13 Lizbet Zhang FNP [address] [place], [place] [address] PCP - General 02/24/13 03/13/20 Salome Mcarthur, BARBERING TEACHER [address] [place], [place] [address] PCP - General 03/14/20 documented as of this encounter
--- OUTSIDE RECORDS SUMMARY | 2023-12-02 18:38 | XMS_ITS | Encounter Summary ---
Author Organization [facility] Address [address] [place] [address] Care Team Providers Care Air Pollution Specialist Name Role Phone Avel Rivera MD Primary Care Provider Unav ailable Encounter Details Date Type Department Care Team (Late st Contact Info) Description 08/27/2007 Office Visit [facility] Ophthalmology - [place] [address] [place] [address] Tamica Maldonado MD [address] [address] Discharge Disposition: Auto Discharge Social History Tobacco Use Types Packs/Day Years Used Date Smoking Tobacco: Never Assessed Sex and Gender Information Value Date Recorded Sex Assigned at Not on file Gender Identity Female 02/14/2022 14:15 EST Sexual Orientation Not on file documented as of this encounter Discharge Disposition Disposition Code Departure Means Destination Auto Discharge documented in this encounter Consult Notes * Tamica Maldonado MD - 12/30/2008 0122 EDT DIVISION OF OPHTHALMOLOGY [facility] CONSULTATION - 08/27/2007 Adi Martinez MD [address] [place] [address], [facility] 2 [place] [address] Dear Adi: Thank you for referring Milka Corbett, who I saw as an emergency consultation on August 27, 2007. Asyou august recall, she noticed a sudden onset of floaters with some distortion in her vision two to three days ago. On examination today, visual acuity with correction is 20/20 in both eyes. Intraocular pressure by applanation at 3:30 p.m. is 23 in the right and 20 in the left. Visual lópez are full to confrontation in both eyes. Anterior segment examination shows a well-centered posterior chamber intraocular lens in both eyes. Dilated fundus examination in the right eye shows an enlarged cup-to-disc ratio. There is a posterior vitreous detachment and late vitreous hemorrhage posteriorly. The retinal vasculare is otherwise unremarkable. A few dot and blot hemorrhages are noted with some hard exudate temporal to the fovea. Careful examination of the retinal periphery with scleral depression reveals one ho rseshoe tear at the 6 omeridian in the area of the equator. No associated subretinal fluid is noted. Dilated fundus examination in the left eye shows an optic nerve with a large cup-to-disc ratio. The retinal vasculature and macula are within normal limits. I have recommended laser retinopexy to the tear in the right eye, which we will proceed with today.Because Ms. Corbett comes from the [facility], she has asked if she may follow up with you following the laser and I think this is very reasonable.If you have any questions or concerns, please do not hesitate to contact me. Yours sincerely, Signed by Tamica Maldonado MD 09/04/2007 08:58 Tamica Maldonado MD [facility] - Retina and Vitreous Service [address] [place] [address] - Tamica Maldonado MD - DV Job ID: [id number] Doc ID: [id number] cc: Adi Martinez MD documented in this encounter Plan of Treatment Not on file documented as of this encounter Visit Diagnoses Not on filedocumented in this encounter Care Teams Air Pollution Specialist Relationship Specialty Start Date End Date Avel Rivera MD PCP - General 09/03/08 07/10/09 documented as of this encounter
--- OUTSIDE RECORDS SUMMARY | 2023-12-02 18:38 | XMS_ITS | Encounter Summary ---
Author Organization [facility] Address [address] [place] [address] Care Team Providers Care Customs Brokerage Manager Name Role Phone Agustin Ramires MD Primary Care Provider [phone] Avel Rivera MD Primary Care Provider Unav ailable Unknown, Provider Primary Care Provider [phone] Agustin Ramires MD Primary Care Provider [phone] Kayleigh Peña Primary Care Provider [phone] Agustin Ramires MD Primary Care Provider [phone] Lizbet Zhang CARTOGRAPHY TEACHER Primary Care Provider [phone] Encounter Details Date Type Department Care Team (Late st Contact Info) Description 04/29/2009 Historical Results Only [facility] Lab - Main [address] [address] Leland Boykin MD Social History Tobacco Use [...] AND FINE NEEDLE ASPIRATION)- ORDER ONLY Routine 04/29/2009 documented in this encounter Results * CYTOLOGY (NON-GYNECOLOGIC INCLUDING FLUIDS AND FINE NEEDLE ASPIRATION)- ORDER ONLY (04/29/2009) 04/29/2009 05/02/2009 10: 03 EST Narrative [facility] - 05/03/2009 9:10 EST ----- ------- Name: MILKA MENDIETA ?: 42 ?Age/Sex: 78/F ?Unit#: [id number] ? Loc: LAB.OPX ? Status: REG REF ?? Reg Date: 04/29/09 ? Pt.Phone Number: ? ----- ------- Specimen: [id number] ?STATUS: SOUT ?Spec Date:04/29/09 ? Physician Copies: ?Leland Boykin MD ?? Tissues: ? Urine (CLEAN CATCH) ? CPT: 65863 ?? Units: ??1 ----- ------- ?? NON ASSEMBLER FITTER CYTOLOGY DIAGNOSIS Urine,voided: Benign squamous cells and urothelial cells. ----- ------- ?CLINICAL HISTORY S/P TUR-BT FOR TCC ?? BCG RX ----- ------- ? SPECIMEN DESCRIPTION ? 30ml clear pale yellow urine, 1 cytospin Signed ____(signature on file)____ Anjel De La Torre M.D. 05/03/09 ?? By the signature above, the attending physician certifies that he/she has personally conducted a gross and/or microscopic examination of the described specimens and rendered or confirmed the above diagnosis. Test Performed by [facility], [address] [place] [address] Criminal Analyst: Namrata Childs MD PHD ----- ------- Leland Boykin MD PATHOLOGY ORDERABLES Performing Organization Address City/State/[facility] Co de Phone Number [facility] documented in this encounter Visit Diagnoses Not on filedocumented in this encounter Care Teams Customs Brokerage Manager Relationship Specialty Start Date End Date Agustin Ramires MD [address] [address] PCP - General 07/11/09 05/16/10 Avel Rivera MD PCP - General 09/03/08 07/10/09 Nkechi Carrera MD PCP - General 05/17/10 02/07/11 Agustin Ramires MD [address] [address] PCP - General 02/08/11 05/15/11 Kayleigh Peña PA [address] [facility] [address] [place] [address] PCP - General 05/16/11 08/19/11 Agustin Ramires MD [address] [phone] PCP - General 08/20/11 02/23/13 Lizbet Zhang FNP [address] [place], [place] [id number] PCP - General 02/24/13 03/13/20 documented as of this encounter
--- OUTSIDE RECORDS SUMMARY | 2023-12-02 18:38 | XMS_ITS | Encounter Summary ---
Author Organization [facility] Address [address] [place] [address] Care Team Providers Care Pulp Bleacher Name Role Phone Agustin Ramires MD Primary Care Provider [phone] Reason for Visit * Reason Comments Post-OP Follow Up weak stream Encounter Details Date Type Department Care Team (Latest Contact Info) Description 09/13/2011 11:45 EDT Office Visit [facility] Pelvic Medicine and Reconstructive Surgery - Medical Office [facility] [address] [place] [address] Tim Mloina MD [address] [place] [phone] Female bladder prolapse (Primary Dx); Rectocele; Mixed incontinence urge and stress Social History Tobacco Use Types Packs/Day Years [...] as of this encounter Progress Notes * Tim Molina MD - 09/14/2011 0858 EDT [facility] [address] [place] [address] Telephone Toll-Free PROGRESS/FOLLOWUP NOTE - 09/13/2011 SUBJECTIVE: Milka Corbett presents in urologic followup today for her history of urinary stress incontinence with severe intrinsic sphincteric deficiency and vaginal prolapse. She underwent autologous pubovaginal sling as well as an anterior and posterior repair on 08/21/2011. Since undergoing thesurgery she has seen a remarkable improvement in her urinary incontinence. She now is wearing on mini pad, which seems as if it is there because of continued discharge from the vagina related to reabsorbing suture material. She feels she may squirt a little bit when she sneezes hard, but compared to how she was prior to the sling she is more than 90% better. The patient had a pubovaginal sling with autologous rectus fascia and was noted to have a weak detrusor preoperatively so we did not tie he r sling exceedingly snug. In this regard, she is emptying the bladder adequately, though with a slower stream. Today's postvoid residual was only 60 mL. OBJECTIVE: On examination, there is no evidence of pelvic prolapse But there is reabsorbing suture material in the vaginal introitus. In addition, the abdominal incision is healing quite well. I removed a small amount of suture material from the skin. ASSESSMENT AND PLAN: At this point, I believe that Milka should have an excellent long-term outcome. I have told her to avoid heavy lifting or straining for the next 6 weeks. Since I am leaving [place], she will need to follow up with an alternative urologist in the future and, of course, this could be Dr Boykin locally or one of the urologists here at [facility] as needed. Electronically Signed by Tim Molina MD 09/18/2011 13:28 Tim Molina MD - Tim Molina MD - HEYDI Job ID: SM Doc ID: [id number] Ext Doc ID: [id number] cc: MD Leland Aburto MD * Tim Molina MD - 09/13/2011 1151 EDT Dictated. Past Medical history, past surgical history, social history, medications, and drug allergies all reviewed in EMR ([employer]) and updated where appropriate. documented in this encounter Plan of Treatment Not on file documented as of this encounter Procedures Procedure Name Priority Date/Time Associated Diagnosis Comments POCT URINE DIPSTICK, CLINITEK Routine 09/13/2011 11:38 EDT Female bladder prolapse documented in this encounter Results * (ABNORMAL) POCT URINE DIPSTICK (09/13/2011 11:38 EDT) Color YELLOW [facility] Clarity, UA Clear [facility] Glucose Neg Neg [facility] Bilirubin Neg Neg [facility] Ketones Neg Neg [facility] Specific [place] <=1.005 1.001 - 1.035 [facility] Blood Trace(A) Neg [facility] pH 5.0 4.6 - 8.0 [facility] Protein Neg Neg [facility] Urobilinogen 0.2 0.2 - 1.0 E.U./dl [facility] Nitrite Neg Neg [facility] Leuk Esterase 1+(A) Neg FLEMATTHEW ER [facility] fulfillment coordinator ID [id number] [facility] Comment[facility] [place] Urine specimen (specimen) 09/13/2011 11:38 EDT 09/13/2011 11:44 EDT Tim Molina MD POINT OF CARE TEST ORDERABLES [facility] [address] [place] [address] documented in this encounter Visit Diagnoses Diagnosis Female bladder prolapse- Primary Cystocele, midline Rectocele Mixed incontinence urge and stress Mixed incontinence urge and stress (male)(female) documented in this encounter Care Teams Pulp Bleacher Relationship Specialty Start Date End Date Agustin Ramires MD [address] [address] [place] [phone] PCP - General 08/20/11 02/23/13 documented as of this encounter
--- OUTSIDE RECORDS SUMMARY | 2023-12-02 18:38 | XMS_ITS | Encounter Summary ---
Author Organization [facility] Address [address] [place] [address] Care Team Providers Care Field Service Representative Name Role Phone Agustin Ramires MD Primary Care Provider [phone] Unknown, Provider Primary Care Provider [phone] Agustin Ramires MD Primary Care Provider [phone] Kayleigh Peña Primary Care Provider [phone] Agustin Ramires MD Primary Care Provider [phone] Lizbet Zhang Primary Care Provider [phone] Encounter Details Date Type Department Care Team (Late st Contact Info) Description 08/12/2009 Historical Results Only [facility] Lab - Main [address] [address] Leland Boykin MD Social History Tobacco Use [...] AND FINE NEEDLE ASPIRATION)- ORDER ONLY Routine 08/12/2009 documented in this encounter Results * CYTOLOGY (NON-GYNECOLOGIC INCLUDING FLUIDS AND FINE NEEDLE ASPIRATION)- ORDER ONLY (08/12/2009) 08/12/2009 08/14/2009 7:5 2 EDT Narrative [facility] - 08/16/2009 12:46 EDT ----- ------- Name: MILKA MENDIETA ?: 42 ?Age/Sex: 78/F ?Unit#: [id number] ? Loc: LAB.OPX ? Status: REG REF ?? Reg Date: 08/12/09 ? Pt.Phone Number: ? ----- ------- Specimen: [id number] ? STATUS: SOUT ?Spec Date:08/12/09 ? Physician Copies: ?Leland Boykin MD ?? Tissues: ? Urine (VOID) ? CPT: 00470 ?? Units: ??1 ----- ------- ?? NON ENTERPRISE SOFTWARE ENGINEER CYTOLOGY DIAGNOSIS Urine, voided: - No malignant cells identified. - Moderately cellular specimen with reactive urothelial and squamous cells. ----- ------- ?CLINICAL HISTORY BLADDER CA BCG'S ----- ------- ? SPECIMEN DESCRIPTION ? 20ml clear yellow urine, 1 cytospin Signed ____(signature on file)____ Namrata Childs M.D. 08/16/09 By the signature above, the attending physician certifies that he/she has personally conducted a gross and/or microscopic examination of the described specimens and rendered or confirmed the above diagnosis. Test Performed by [facility], [address] [place] [address] Sports Clerk: Namrata Childs MD PHD ----- ------- Leland Boykin MD PATHOLOGY ORDERABLES [facility] documented in this encounter Visit Diagnoses Not on filedocumented in this encounter Care Teams Field Service Representative Relationship Specialty Start Date End Date Agustin Ramires MD [address] [address] [place] [address] PCP - General 07/11/09 05/16/10 Deandre, MD Nkechi PCP - General 05/17/10 02/07/11 Agustin Ramires MD [address] [address] [place] [address] PCP - General 02/08/11 05/15/11 Kayleigh Peña PA [address] [facility] [address] [place] [address] PCP - General 05/16/11 08/19/11 Agustin Ramires MD [address] [address] [place] [address] PCP - General 08/20/11 02/23/13 Lizbet Zhang FNP [address] [place] [address] PCP - General 02/24/13 03/13/20 documented as of this encounter
--- OUTSIDE RECORDS SUMMARY | 2023-12-02 18:38 | XMS_ITS | Encounter Summary ---
Author Organization [facility] Address [address] [place] [address] Care Team Providers Care Animal Impersonator Name Role Phone Avel Rivera MD Primary Care Provider Unav ailable Reason for Referral * Consult, Test and Treat (Routine) - Closed Specialty Diagnoses / Procedures Referred By Contac t Referred To Contact Diagnoses Vertigo Sprain of lumbar region Avel Rivera MD [address] [place] [address] [address] [place] [id number] Referral ID Status Reason Start Date Expiration Date V isits Requested Visits Authorized [id number] Closed Specialty Services Required 06/06/2009 1 1 Question Answer Reason for Request: lumbar strain Reason for Visit * Reason Comments Follow-up having inner issue t he past week has been dizy,ears feelirritable,has increased her gabapentin. Encounter Details Date Type Department Care Team (Late st Contact Info) Description 06/06/2009 13:30 EST Office Visit [facility] [address] [place] [address] Avel Rivera MD Vertigo; Hypertension; DM (diabetes mellitus) (CMS-HCC) ([facility]); Hyperlipidemia; Lumbar sprain and strain Social History Tobacco Use Types Packs/Day Years [...] Sign Reading Time Taken Comments Blood Pressure 120/78 06/06/2009 1338 EST Pulse 96 06/06/2009 1338 EST Temperature - - Respiratory Rate - - Oxygen Saturation - - Inhaled Oxygen Concentration - - Weight - - Height - - Body Mass Index - - documented in this encounter Ordered Prescriptions Prescription Sig Dispensed Refills Start Date End Da te clonazepam (KLONOPIN) 0.5 mg tablet Take 1 Tab by mouth at bedtime. 90 Tab 4 06/06/2009 lisinopril (PRINIVIL, ZESTRIL) 10 mg tablet Take 1 Tab by mouth daily. 90 Tab 4 06/06/2009 meclizine (ANTIVERT) 25 mg tablet Take 1 Tab by mouth 4 times daily as needed. verigo 120 Tab 4 06/06/2009 08/14/2011 gabapentin (NEURONTIN) 300 mg capsule Take 1 Cap by mouth 3 times daily. 270 Cap 4 06/06/2009 08/04/2023 amitriptyline (ELAVIL) 100 mg tablet Take 1 Tab by mouth at bedtime. 90 Tab 4 06/06/2009 08/04/2023 documented in this encounter Progress Notes * Avel Rivera MD - 06/08/2009 0710 EST [facility] PROGRESS/FOLLOWUP NOTE - 06/06/2009 PROBLEM: Vertigo, hypertension, diabetes. SUBJECTIVE: Milka is here to evaluate acute vertigo and followup of diabetes and hypertension. She has a history of recurrent vertigo and was first prescribed meclizine three years ago. This has recurred without any clear pattern. At this time, she thought she was coming down with a mild URI a few days ago, but has developed progressive discomfort ears and dizziness and imbalance. She denies fever, chills, cough, vomiting and shortness of breath. She has been experiencing some low back pain, which is being treated by a chiropractor. Her blood sugars have been stable. Her last A1c in February was 6.6. MEDICATIONS: Amitriptyline 100 mg at bedtime. Clonazepam 0.5 mg at bedtime. Gabapentin 200 mg 4 times daily. Lisinopril 10 mg daily. Multivitamin. Meclizine 25 mg as needed. OBJECTIVE: BP 120/78, pulse 96. Eyes full EOM. PERRLA. TMs appear normal. Sinuses nontender, no scalp tenderness. Throat clear. Neck supple, no adenopathy. Carotid arteries 2+ no bruit. Lungs clear. Heart sounds regular. No murmur. Abdomen: Active bowel sounds, soft, nontender. She was unsteady on her feet getting onto the examining table. No nystagmus. ASSESSMENT: Recurrent vertigo ? viral vestibular neuronitis or benign positional vertigo, diabetes,hypertension. PLAN: I explained I did not see any evidence of bacterial infection. 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 She had a mammogram in April that was negative and a repeat chest x-ray showed no evidence of pulmonary nodule previously seen on chest CT in 05/16. She will report if vertigo persists more than two days. I did refer her to physical thera py for low back pain. She might benefit from vestibular therapy. Followup visit in three months. Electronically Signed by Avel Rivera MD 06/08/2009 07:09 Avel Rivera MD - Avel Rivera MD - KATERIN Job ID: SM Doc ID: [id number] Ext Doc ID: [id number] cc: * Avel Rivera MD - 06/06/2009 1352 EST This office note has been dictated. documented in this encounter Plan of Treatment Scheduled Referrals Name Type Priority Associated Diagnoses Orde r Schedule AMB CONSULT PHYSICAL THERAPY Outpatient Referral Routine Vertigo Lumbar sprain and strain Ordered: 06/06/2009 documented as of this encounter Visit Diagnoses Diagnosis Vertigo Dizziness and giddiness Hypertension Unspecified essential hypertension DM (diabetes mellitus) ([facility]) Type II or unspecified type diabetes mellitus without mention of complication, not stated as uncontrolled Hyperlipidemia Other and unspecified hyperlipidemia Sprain of lumbar region documented in this encounter Discontinued Medications Medication Sig Discontinue Reason Start Date End Da te gabapentin (NEURONTIN) 100 mg capsule Take 2 Caps by mouth 4 times daily. Dose adjustment 05/04/2009 06/06/2009 amitriptyline (ELAVIL) 100 mg tablet Take 1 Tab by mouth at bedtime. Reorder 05/18/2009 06/06/2009 lisinopril (PRINIVIL, ZESTRIL) 10 mg tablet Take 10 mg by mouth daily. Reorder 06/06/2009 clonazepam (KLONOPIN) 0.5 mg tablet Take 0.5 mg by mouth at bedtime. Reorder 06/06/2009 MECLIZINE HCL (MECLIZINE ORAL) Take by mouth as needed. Reorder 06/06/2009 documented as of this encounter Care Teams Animal Impersonator Relationship Specialty Start Date End Date Avel Rivera MD PCP - General 09/03/08 07/10/09 documented as of this encounter
--- OUTSIDE RECORDS SUMMARY | 2023-12-02 18:38 | XMS_ITS | Encounter Summary ---
Author Organization [facility] Address [address] [place] [address] Care Team Providers Care J2Ee Software Engineer Name Role Phone Agustin Ramires MD Primary Care Provider [phone] Encounter Details Date Type Department Care Team (Late st Contact Info) Description 08/20/2011 Pre-Procedure Orders Encounter [facility] Pelvic Medicine and Reconstructive Surgery - Medical Office [facility] [address] [place] [address] Tim Molina MD [address] [place] [phone] Social History Tobacco Use Types Packs/Day Years [...] on filedocumented in this encounter Care Teams J2Ee Software Engineer Relationship Specialty Start Date End Date Agustin Ramires MD [address] [place] [address] [address] [place] [phone] PCP - General 08/20/11 02/23/13 documented as of this encounter
--- OUTSIDE RECORDS SUMMARY | 2023-12-02 18:38 | XMS_ITS | Encounter Summary ---
Author Organization [facility] Address [address] [place] [address] Care Team Providers Care Kitchen Helper Name Role Phone Unknown, Provider Primary Care Provider [phone] Agustin Ramires MD Primary Care Provider [phone] Kayleigh Peña Primary Care Provider [phone] Agustin Ramires MD Primary Care Provider [phone] Lizbet Zhang COMPENSATION AND BENEFITS MANAGER Primary Care Provider [phone] Encounter Details Date Type Department Care Team (Late st Contact Info) Description 09/19/2010 Historical Results Only [facility] Lab - Main [address] [address] Leland Boykin MD Social History Tobacco Use [...] AND FINE NEEDLE ASPIRATION)- ORDER ONLY Routine 09/19/2010 documented in this encounter Results * CYTOLOGY (NON-GYNECOLOGIC INCLUDING FLUIDS AND FINE NEEDLE ASPIRATION)- ORDER ONLY (09/19/2010) 09/19/2010 09/20/2010 9:2 0 EDT Narrative [facility] - 09/21/2010 10:55 EDT ----- ------- Name: MILKA MENDIETA ?: 42 ?Age/Sex: 78/F ?Unit#: [id number] ? Loc: LAB.OPX ? Status: REG REF ?? Reg Date: 09/20/10 ? Pt.Phone Number: ? ----- ------- Specimen: [id number] ? STATUS: SOUT ?Spec Date:09/19/10 ? Physician Copies: ?Leland Boykin MD ?? Tissues: ? Urine (bladder) ? CPT: 64517 ?? Units: ??1 ----- ------- ?? NON SPEECH THERAPY TEACHER CYTOLOGY DIAGNOSIS Urine,bladder: Benign urothelial cells. ----- ------- ? SPECIMEN DESCRIPTION ? 100ml clear yellow urine, 30ml proc, 1tp Signed ____(signature on file)____ Anjel De La Torre M.D. 09/21/10 ?? By the signature above, the attending physician certifies that he/she has personally conducted a gross and/or microscopic examination of the described specimens and rendered or confirmed the above diagnosis. Test Performed by [facility], [address] [place] [address] Clinic Physician: Namrata Childs MD PHD ----- ------- Leland Boykin MD PATHOLOGY ORDERABLES [facility] documented in this encounter Visit Diagnoses Not on filedocumented in this encounter Care Teams Kitchen Helper Relationship Specialty Start Date End Date Unknown, MD Nkechi PCP - General 05/17/10 02/07/11 Agustin Ramires MD [address] [place] [phone] PCP - General 02/08/11 05/15/11 Kayleigh Peña PA [address] [place] [address] PCP - General 05/16/11 08/19/11 Agustin Ramires MD [address] [place] [address] PCP - General 08/20/11 02/23/13 Lizbet Zhang FNP [address] [place] [id number] PCP - General 02/24/13 03/13/20 documented as of this encounter
--- OUTSIDE RECORDS SUMMARY | 2023-12-02 18:38 | XMS_ITS | Encounter Summary ---
Author Organization [facility] Address [address] [place] [address] Care Team Providers Care Mosaic Floor Layer Name Role Phone Lizbet Zhang SALT LIFTER Primary Care Provider [phone] Encounter Details Date Type Department Care Team (Latest Contact Info) Description 12/03/2013 12:35 EDT - 12/03/2013 23:59 EDT Hospital Encounter [address] [address] Unknown, Provider, Discharge Disposition: Home or Self [...] 1 Tab by mouth daily before breakfast. [place]-3 Fatty Acids-Vitamin E (FISH OIL) 1,000 mg [...] Code Departure Means Destination Home or Self Detention documented in this encounter Plan of Treatment Not on file documented as of this encounter Visit Diagnoses Not on filedocumented in this encounter Care Teams Mosaic Floor Layer Relationship Specialty Start Date End Date Lizbet Zhang FNP [facility] [place] [address] PCP - General 02/24/13 03/13/20 documented as of this encounter
--- OUTSIDE RECORDS SUMMARY | 2023-12-02 18:38 | XMS_ITS | Encounter Summary ---
Author Organization [facility] Address [address] [place] [address] Care Team Providers Care Motor Assembly Supervisor Name Role Phone Kayleigh Peña Primary Care Provider [phone] Reason for Visit * Reason Comments Other URO Encounter Details Date Type Department Care Team (Latest Contact Info) Description 07/03/2011 11:00 EDT Office Visit [facility] Pelvic Medicine and Reconstructive Surgery - Medical Office [facility] [address] [place] [address] Tim Molina MD [address] [place] [phone] Female bladder prolapse (Primary Dx); Rectocele; Cystocele Social History Tobacco Use Types Packs/Day Years [...] Progress Notes * Tim Molina MD - 07/03/2011 1129 EDT See urodynamics report scanned documents. I spent 20 minutes of the 20 minute visit in face to facecounseling time with this patient distinct and separate from the procedure(s). We discussed the diagnosis as well as all the potential treatment options with their respective risks and benefits at length. All questions were answered. The patient had an excellent understanding of the problem and treatment plan at the end of the visit. documented in this encounter Miscellaneous Notes * Scanned Note-Null - PAINT POURER, SCAN 2 - 07/09/2011 1136 EDT documented in this encounter Plan of Treatment Not on file documented as of this encounter Procedures Procedure Name Priority Date/Time Associated Diagnosis Comments POCT URINE DIPSTICK, CLINITEK Routine 07/03/2011 10:26 EDT Female bladder prolapse documented in this encounter Results * POCT URINE DIPSTICK (07/03/2011 10:26 EDT) Color YELLOW [facility] Clarity, UA Clear [facility] Glucose Neg Neg [facility] Bilirubin Neg Neg [facility] Ketones Neg Neg [facility] Specific [place] 1.010 1.001 - 1.035 [facility] Blood Neg Neg [facility] pH 5.0 4.6 - 8.0 [facility] Protein Neg Neg [facility] Urobilinogen 0.2 0.2 - 1.0 E.U./dl [facility] Nitrite Neg Neg [facility] Leuk Esterase Neg Neg FLETCH ER [facility] allied health professional ID [id number] [facility] Comment:[facility] [place] Urine specimen (specimen) 07/03/2011 10:26 EDT 07/03/2011 10:35 EDT Tim Molina MD POINT OF CARE TEST ORDERABLES [facility] [address] [place] [address] documented in this encounter Visit Diagnoses Diagnosis Female bladder prolapse- Primary Cystocele, midline Rectocele Cystocele Cystocele, midline documented in this encounter Administered Medications Inactive Administered Medications - up to 3 most recent administrations Medication Order MAR Action Action Date Dose Rate Site ciprofloxacin (CIPRO) tablet 250 mg 250 mg, oral, NOW X1, 1 dose, On Sat07/03/11 at 1145, Controlled antibiotic, has ID approved? Yes, Routine Given 07/03/2011 11:30 EDT 250 mg documented in this encounter Orders Medications Ordered That Ron ht Not Have Been Administered Count Last Ordered Date First Ordered Date ciprofloxacin (CIPRO) tablet 250 mg 1 07/02 documented in this encounter Care Teams Motor Assembly Supervisor Relationship Specialty Start Date End Date Kayleigh Peña PA [address] [facility] [address] [place] [address] PCP - General 05/16/11 08/19/11 documented as of this encounter
--- OUTSIDE RECORDS SUMMARY | 2023-12-02 18:38 | XMS_ITS | Encounter Summary ---
Author Organization [facility] Address [address] [place] [address] Care Team Providers Care Proof Inspector Name Role Phone Unknown, Provider Primary Care Provider Reason for Visit * Reason Comments Other 3 courses of difluca n from being on levoquin mouth also sore spicy food cause discomfort. Not sure if yeast or something else. finished treatments for bladder cancer chemo directly into bladder. has a hx of problems with antibiotics yeast Encounter Details Date Type Department Care Team (Late st Contact Info) Description 05/18/2010 11:30 EST Office Visit [facility] [place] [address] [place] [address] Unknown, Provider, Montrell Jaeger MD [address] [facility] [address] [phone] LPRD (laryngopharyngeal reflux disease); Deviated nasal septum Social History Tobacco Use Types Packs/Day Years [...] Sign Reading Time Taken Comments Blood Pressure 120/74 05/18/2010 1141 EST Pulse 97 05/18/2010 1141 EST Temperature - - Respiratory Rate 14 05/18/2010 1141 EST Oxygen Saturation - - Inhaled Oxygen Concentration - - Weight 72.6 kg (160 lb) 05/18/2010 1141 EST Height 157.5 cm (5' 2) 05/18/2010 1141 EST Body Mass Index 29.26 05/18/2010 1141 EST documented in this encounter Progress Notes * Montrell Jaeger MD - 05/18/2010 1202 EST This office note has been dictated. documented in this encounter Consult Notes * Montrell Jaeger MD - 05/23/2010 1635 EST [place] [facility] - 05/18/2010 Kayleigh Peña SENIOR SUPPORT ENGINEER [address] [place] [address], [address] [place] [address] Dear Jessearnel: This is a consult from Kita Peña for evaluation of thrush. History of Present Illness: This is a 69-year-old female with a 2- to 3-month history of soreness in her mouth and tongue, diagnosis recurrent thrush. This occurs after she is treated with Levaquin for a bladder procedure. Nystatin usually helps, but she has also been on fluconazole, which helps while she is on it, but her symptoms return when she is off. She has some associated lip cracking but no cultures. Her past medical history is significant for hypertension, diabetes, positive PPD, irritable bowel, hyperlipidemia, rosacea, restless leg, migraine, gastritis and duodenitis, bladder cancer, and hearing loss. Previous surgeries include appendectomy, cholecystectomy, JAMES-BSO, cataracts, tubal ligation, and skin biopsy. Current medications include Fiorinal, multivitamin, fish oil, Elavil, Colace, Neurontin, Antivert, and glucophage. She has drug ALLERGIES to SULFA, CODEINE, QUENTIN INHIBITORS, ERYTHROMYCIN and ATENOLOL. Review of systems is significant for migraine headaches, hearing loss, and heartburn. Otherwise, negative for multiple system reviews. Family history is significant for cancer and thyroid disease. Social History: The patient is a nonsmoker. Physical Exam: General: Well-developed, well-nourished, cooperative adult female, in no acute distress. Voice is slightly hoarse. Height 62 inches, weight 160. Vital signs: Blood pressure 120/74, pulse 97, respirations 14. No reportable pain. The face is normal without lesions. No tenderness. Salivary glands are normal. Facial strength is symmetric. Eye exam is normal. Ears: External ears are normal. Canals are clear. The tympanic membranes are normal. The patient wears hearing aids bilaterally. Nose: Nasal dorsum is midline. The airway is patent. Oral cavity is clear. Posterior pharynx is clear. Tonsils are 2+, not inflamed. The lips, tongue, floor of mouth, and buccal mucosa are within normal limits. No exudate, white patches, or evidence of inflammation of the tongue or oral cavity. Neck: No pathologic lymphadenopathy. Trachea is midline. Thyroid is normal. Chest is clear to auscultation. Heart: Regular rate and rhythm. Procedure: Fiberoptic endoscopy was performed with topical anesthesia. This reveals a right nasoseptal deviation, but both middle meati are clear. No polyps or purulence. The nasopharynx is clear. The base of tongue is normal. No evidence of yeast infection of the tongue base. The epiglottis, vallecula, and piriform sinuses are within normal limits. False vocal cords and true vocal cords are normal, but there is evidence of reflux of the posterior larynx, with drainage seen coming out of the esophageal inlet. Impression: Recurrent tongue and lip symptoms, unclear etiology. No evidence of thrush on today's visit. Differential diagnosis includes laryngopharyngeal reflux and B12 deficiency. Recommendations: Instructional material on laryngopharyngeal reflux was given to the patient. Consider increasing her proton pump inhibitor, and encouraged behavioral and dietary changes. May also consider taking B12 or obtaining a B12 level. Follow up with ENT p.r.n. Sincerely, Electronically Signed by Montrell Jaeger MD 05/23/2010 16:35 Montrell Jaeger MD - Montrell Jaeger MD - THANIA Job ID: SM Doc ID: [id number] Ext Doc ID: [id number] cc: TOPHER Mackey documented in this encounter Plan of Treatment Not on file documented as of this encounter Visit Diagnoses Diagnosis LPRD (laryngopharyngeal reflux disease) Other diseases of larynx Deviated nasal septum documented in this encounter Historical Medications * This list may reflect changes made after this encounter. Medication Sig Dispensed Refills Start Date End Date metformin (GLUCOPHAGE) 1,000 mg tablet Take 1 Tablet by mouth 2 times daily with breakfast and dinner. [place]-3 Fatty Acids-Vitamin E (FISH OIL) 1,000 mg Cap Take by mouth daily. added in this encounter Care Teams Proof Inspector Relationship Specialty Start Date End Date Unknown, Provider, PCP - General 05/17/10 02/07/11 documented as of this encounter
--- OUTSIDE RECORDS SUMMARY | 2023-12-02 18:38 | XMS_ITS | Encounter Summary ---
Author Organization [facility] Address [address] [place] [address] Care Team Providers Care Electronic Engineering Technician Name Role Phone Agustin Ramires MD Primary Care Provider [phone] Avel Rivera MD Primary Care Provider Unav ailable Unknown, Provider Primary Care Provider [phone] Agustin Ramires MD Primary Care Provider [phone] Kayleigh Peña Primary Care Provider [phone] Agustin Ramires MD Primary Care Provider [phone] Lizbet Zhang [facility] Primary Care Provider [phone] Encounter Details Date Type Department Care Team (Late st Contact Info) Description 05/10/2009 Historical Results Only [facility] [place] [address] [place] [id number] Leland Boykin MD Social History Tobacco Use [...] Priority Date/Time Associated Diagnosis Comments SURGICAL PATHOLOGY Routine 05/10/2009 documented in this encounter Results * SURGICAL PATHOLOGY (05/10/2009) 05/10/2009 05/10/2009 11: 28 EST Narrative [facility] - 05/11/2009 13:51 EST ----- ------- Name: MILKA MENDIETA ?: 42 ?Age/Sex: 78/F ?Unit#: [id number] ? Loc: SDS ? Status: DEP SDC ?? Reg Date: 05/10/09 ? Pt.Phone Number: ? ----- ------- Specimen: [id number] ?STATUS: SOUT ?Spec Date:05/10/09 ? Physician Copies: ?Leland Boykin MD ?? Tissues: A ?? Urinary Tract (BLADDER DOME) ? CPT: 12162 ?? Units: ??1 ?FINAL DIAGNOSIS ? Bladder, biopsy; ? - Reactive type urothelial atypia. ? 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 compatible with previous therapy. ? GROSS DESCRIPTION ? Received in formalin and labeled bladder biopsy is a mucosal tissue fragment ? 0.2 cm in greatest dimensions. e.s. BT ?? PREOP DX/CLINICAL HISTORY ?Bladder tumors Signed ____(signature on file)____ Anjel De La Torre M.D. 05/11/09 ?? By the signature above, the attending physician certifies that he/she has personally conducted a gross and/or microscopic examination of the described specimens and rendered or confirmed the above diagnosis. Test Performed by [facility], [address] [place] [id number] [employer] Engineer: Namrata Childs MD PHD ----- ------- Leland Boykin MD PATHOLOGY ORDERABLES Performing Organization Address [facility]/State/[facility] Co de Phone Number [facility] documented in this encounter Visit Diagnoses Not on filedocumented in this encounter Care Teams Electronic Engineering Technician Relationship Specialty Start Date End Date Agustin Ramires MD [address] [phone] PCP - General 07/11/09 05/16/10 Avel Rivera MD PCP - General 09/03/08 07/10/09 Unknown, MD [place] PCP - General 05/17/10 02/07/11 Agustin Ramires MD [address] [place] [address] [place] [phone] PCP - General 02/08/11 05/15/11 Kayleigh Peña PA [address] [facility] [address] [place] [address] PCP - General 05/16/11 08/19/11 Agustin Ramires MD [address] [facility] [address] [place] [phone] PCP - General 08/20/11 02/23/13 Lizbet Zhang FNP [address] [place], [place] [address] PCP - General 02/24/13 03/13/20 documented as of this encounter
--- OUTSIDE RECORDS SUMMARY | 2023-12-02 18:38 | XMS_ITS | Encounter Summary ---
Author Organization [facility] Address [address] [place] [address] Care Team Providers Care Maple Sugar Maker Name Role Phone Avel Rivera MD Primary Care Provider Unav ailable Encounter Details Date Type Department Care Team (Late st Contact Info) Description 03/09/[address] [address] Avel Rivera MD Hypertension; DM (Diabetes Mellitus) ([facility]) ([facility]); PPD Positive; IBS (Irritable Bowel Syndrome); Hyperlipidemia; Rosacea; RLS (Restless Legs Syndrome); Migraine Social History Tobacco Use Types Packs/Day Years Used Date Smoking Tobacco: Never Assessed Sex and Gender Information Value Date Recorded Sex Assigned at Not on file Gender Identity Female 02/14/2022 14:15 EST Sexual Orientation Not on file documented as of this encounter Plan of Treatment Not on file documented as of this encounter Visit Diagnoses Diagnosis Hypertension Unspecified essential hypertension DM (diabetes mellitus) ([facility]) Type II or unspecified type diabetes mellitus without mention of complication, not stated as uncontrolled 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 Medication Sig Dispensed Refills Start Date End Date MULTIVITAMINS (MULTIVITAMIN ORAL) Take 1 Tab by mouth daily before breakfast. BUTALBITAL/ASPIRIN/CAFFEI NE (FIORINAL ORAL) Take by mouth 2 times daily as needed. MECLIZINE HCL (MECLIZINE ORAL) Take by mouth as needed. 06/06/2009 gabapentin (NEURONTIN) 100 mg capsule Take 100 mg by mouth 3 times daily. 05/04/2009 docusate sodium (COLACE) 100 mg capsule Take 100 mg by mouth daily as needed. 08/22/2011 lisinopril (PRINIVIL, ZESTRIL) 10 mg tablet Take 10 mg by mouth daily. 06/06/2009 clonazepam (KLONOPIN) 0.5 mg tablet Take 0.5 mg by mouth at bedtime. 06/06/2009 amitriptyline (ELAVIL) 100 mg tablet Take 100 mg by mouth at bedtime. 05/04/2009 added in this encounter Care Teams Maple Sugar Maker Relationship Specialty Start Date End Date Avel Rivera MD PCP - General 09/03/08 07/10/09 documented as of this encounter
--- OUTSIDE RECORDS SUMMARY | 2023-12-02 18:38 | XMS_ITS | Encounter Summary ---
Author Organization [facility] Address [address] [place] [address] Care Team Providers Care Metal Or Wood Blocker Name Role Phone Agustin Ramires MD Primary Care Provider [phone] Encounter Details Date Type Department Care Team (Latest Contact Info) Description 08/21/2011 6:58 EDT - 08/22/2011 15:08 EDT Hospital Encounter [facility] [address], [place] [id number] Tim Molina MD [address] [place] [id number] Discharge Disposition: Home or Self Care Social [...] Sign Reading Time Taken Comments Blood Pressure 91/54 08/22/2011 1415 EDT Pulse 105 08/22/2011 1415 EDT Temperature 36.8 ??C (98.2 ??F) 08/22/2011 1415 EDT Respiratory Rate 16 08/22/2011 1415 EDT Oxygen Saturation 93% 08/22/2011 1415 EDT Inhaled Oxygen Concentration - - Weight 70.8 kg (156 lb) 08/14/2011 1338 EDT Height 157.5 cm (5' 2) 08/14/2011 1338 EDT Body Mass Index 28.53 08/14/2011 1338 EDT documented in this encounter Functional Status Cognitive Status Response Date of Assessm ent Because of a physical, menta l, or emotional condition, do you have serious difficulty concentrating, remembering, or making decisions? (5 years old or older) Yes 08/21/2011 documented as of this encounter Discharge Summaries * Sandra Irwin PA - 08/22/2011 1255 EDT Discharge Summary Chief Complaint/Reason for Admission: Stress urinary incontinence with intrinsic sphincteric deficiency, cystocele and rectocele (grade 2). Principal/Final Diagnosis: Same Principal Procedure: Pubovaginal sling with autologous rectus fascia, cystocele repair, rectocele repair and cystoscopy done on 08/21/2011. Secondary Procedures: None Complications/Co-Morbid Conditions: Patient Active Problem List Diagnoses ??? Hypertension ??? DM (Diabetes Mellitus) ??? PPD Positive ??? IBS (Irritable Bowel Syndrome) ??? Hyperlipidemia ??? Rosacea ??? RLS (Restless Legs Syndrome) ??? Migraine ??? Rectocele ??? Mixed incontinence urge and stress ??? Rectocele ??? Cystocele Prognosis: good Condition at Discharge: Good Hospital Course: The pt is a 71 y/o female admitted S/P P-V sling with autologus rectus fascia, cystocele and rectocele repair done on 08/21/11. The pt tolerated the procedure well. Upon completion of the procedure the pt was taken to PACU and once stable transferred to the floor for her continuing care. POD# 1 pt was afberile, VSS. Pain well controlled. The pt underwent a successful trial of void. The pt was discharged to home. Pt was afebrle, VSS, tolerating regular diet, ambulating and pain controlled with oral analgesics at time of discharge. The pt had an uncomplicated hospital course. Relevant Studies at Discharge: none Last Lab Results at Discharge: BUN: Lab Results Component Value Date BUN 13 08/22/2011 Creatinine: Lab Results Component Value Date CREATININE 0.54 08/22/2011 CBC: Lab Results Component Value Date WBC 12.59* 08/22/2011 RBC 3.56* 08/22/2011 HGB 11.4* 08/22/2011 HCT 33.6* 08/22/2011 MCV 94 08/22/2011 MCH 32.0 08/22/2011 MCHC 33.9 08/22/2011 PLT 152 08/22/2011 Electrolytes: Lab Results Component Value Date NA 132* 08/22/2011 K 3.5 08/22/2011 CL 97 08/22/2011 CO2 26 08/22/2011 cc: Tim Molina MD Brock, Joseph, MD Joseph Brock Discharge Summary Completed: yes documented in this encounter Discharge Instructions * Discharge Instructions* Sandra Iriwn PA - 08/22/2011 12:55 EDT Diet: Resume preoperative diet Activity: No heavy lifting or strenuous exercise x 4-6 weeks May use stairs Driving: No driving while taking narcotic pain medication Skin/Wound Care: No dressing required. Resume normal skin care. Bathing: Okay to get wound wet, but pat dry. Do NOT rub the wound area. Shower only Shower with soap and water daily. May shower on 08/24/11 Pending Results: Not applicable Symptoms to Call Your Doctor About: Burning with urination, Chest pain, Dizziness, Increased blood in urine, Increased pain, Nausea or vomiting, Pain unrelieved by medication, Redness, swelling or drainange from wound, Shortness of breath, Temperature greater than 101 degrees F and Urinary retention Appointments: Dr Molina on 09/13/11 at 11:45 Follow-up Services Contacted at Discharge: Attending physician documented in this encounter Medications at Time [...] 1 Tab by mouth daily before breakfast. Lismore-3 Fatty Acids-Vitamin E (FISH OIL) 1,000 mg Cap Take by mouth daily. amitriptyline (ELAVIL) 100 mg tablet Take 1 Tab by mouth at bedtime. 90 Tab 4 06/06/2009 08/04/2023 cephALEXin (KEFLEX) 500 mg capsule Take 1 Cap by mouth 2 times daily for 3 days. 6 Cap 0 08/22/2011 08/25/2011 gabapentin (NEURONTIN) 300 mg capsule Take 1 Cap by mouth 3 times daily. 270 Cap 4 06/06/2009 08/04/2023 HYDROmorphone (DILAUDID) 2 mg tablet Take 1-2 Tabs by mouth every 4 hours as needed for Pain. 15 Tab 0 08/22/2011 08/31/2011 documented as of this encounter Ordered Prescriptions Prescription Sig Dispensed Refills Start Date End Da te docusate sodium (COLACE) 100 mg capsule Take 1 Cap by mouth 2 times daily. 08/22/2011 acetaminophen (TYLENOL) 650 mg tablet Take 1 Tab by mouth every 6 hours as needed for Pain. 08/22/2011 cephALEXin (KEFLEX) 500 mg capsule Take 1 Cap by mouth 2 times daily for 3 days. 6 Cap 0 08/22/2011 08/25/2011 HYDROmorphone (DILAUDID) 2 mg tablet Take 1-2 Tabs by mouth every 4 hours as needed for Pain. 15 Tab 0 08/22/2011 08/31/2011 documented in this encounter Discharge Disposition Disposition Code Departure Means Destination Home or Self Care documented in this encounter Progress Notes * Andreia Faustin - 08/22/2011 1037 EDT Brief Case Management Assessment Reason for Hospitalization: POD #1 S/P pubovoaginal sling. H/O stress incontinence. Patient has been up and ambulating, a little dizziness when she first sat up; SBP 88. Spouse, Walter at bedside. Current Living Arrangements: Lives with spouse. Independent with ADL. No functional limitations. Current Social, Health Care and Community Supports: Supportive spouse and friends. Friends have volunteered to bring food over for spouse and patient. PCP: Dr. Agustin Ramires. Identified Case Management/Social Work Needs and Issues (housing, care, financial, transportation, cultural, spiritual, emotional, legal, etc.): Prescription coverage through [facility] ([facility]). Denies needs for post-acute services. Patient may go home with Singer. Spouse feels comfortable and has been a manufacturing lead for the patient In the past when she had a Singer. Spouse will provide transportation home and for post-acute needs. Case Management Actions (completed and planned): DCP: home with spouse. No post-acute needs identified. Andreia Faustin RN, [id number] * Sandra Irwin PA - 08/22/2011 0857 EDT [facility] Urologic Surgery Daily Progress Note Admit Date: 08/21/2011 Hospital Day: LOS: 1 day Date of Service: 08/22/2011 POD: 1 Chief Complaint: Cystocele, rectocele Subjective: No overnight issues. Pain well controlled. +flatus,-BM Tolerating diabetic diet Doing IS +OOB Denies N/V, CP, SOB, HAS, calf pain Review of Systems: Pertinent items are noted in the Subjective. Objective/Physical Exam: Vital Signs: Patient Vitals for the past 8 hrs: BP Pulse Heart Rate Resp Temp SpO2 O2 Device 08/22/11 0822 92/53 mmHg 106 - - - - - 08/22/11 0556 92/54 mmHg - 99 BPM 16 36.5 ??C (97.7 ??F) 93 % Room air 08/22/11 0143 94/55 mmHg 107 - 16 35.5 ??C (95.9 ??F) 94 % Room air Temp (24hrs), Av.6 ??C (97.9 ??F), Min:35.5 ??C (95.9 ??F), Max:37.5 ??C (99.5 ??F) Blood pressure 92/53, pulse 106, temperature 36.5 ??C (97.7 ??F), temperature source Tympanic, resp. rate 16, height 157.5 cm (62), weight 70.761 kg (156 lb), SpO2 93.00%. Pain: Patient Vitals for the past 8 hrs: Numeric Pain Level (Scale 1-10) 08/22/11 0822 1 08/22/11 0649 0 08/22/11 0556 1 08/22/11 0313 0 08/22/11 0235 1 08/22/11 0156 3 Glucose Readings (last 8 hours): Invalid Type for display. I&O: I&O By Type - 3 Shifts Including Current In: 1397.1 [P.O.:980; I.V.:417.1] Out: 1350 [Urine:1350] Exam: General Appearance: alert, cooperative, no distress Skin: Skin color, tempature, turgor normal. No rashes or lesions Head: Normocephalic, without obvious abnormality, atraumatic Neck: supple, symmetrical, trachea midline Lungs: clear to auscultation bilaterally Heart: regular rate and rhythm Abdomen: soft TTP approp, ND, +BS Extremities: extremities warm, atraumatic, no cyanosis or edema, SCDs in place Neuro: Grossly normal Genitourinary: singer draining clear urine, Vaginal pack intact - removed, scant, dry blood on peripad Incision(s)/Wounds: clean, dry, intact Stents: None Is PICC or central line present? No, PICC/Central line not present. Is Singer catheter present? Yes, it is still present Singer Catheter is no longer required, will discontinue. Data Review: I have independently visualized the Labs: CBC: Lab Results Component Value Date WBC 12.59* 08/22/2011 RBC 3.56* 08/22/2011 HGB 11.4* 08/22/2011 HCT 33.6* 08/22/2011 MCV 94 08/22/2011 MCH 32.0 08/22/2011 MCHC 33.9 08/22/2011 PLT 152 08/22/2011 BMP: Lab Results Component Value Date NA 132* 08/22/2011 K 3.5 08/22/2011 CL 97 08/22/2011 CO2 26 08/22/2011 BUN 13 08/22/2011 CREATININE 0.54 08/22/2011 GLUCOSEFINGE 137* 08/22/2011 Assessment/Problems: (update problem list daily as appropriate) Patient Active Problem List Diagnoses Date Noted ??? Rectocele 07/03/2011 ??? Cystocele 07/03/2011 ??? Rectocele 05/18/2011 ??? Mixed incontinence urge and stress 05/18/2011 ??? Hypertension 03/09/2009 Class: Permanent ??? DM (Diabetes Mellitus) 03/09/2009 Class: Permanent ??? PPD Positive 03/09/2009 Class: Permanent H/o - cxr ??? IBS (Irritable Bowel Syndrome) 03/09/2009 Class: Permanent ??? Hyperlipidemia 03/09/2009 Class: Permanent ??? Rosacea 03/09/2009 Class: Permanent ??? RLS (Restless Legs Syndrome) 03/09/2009 Class: Permanent ??? Migraine 03/09/2009 Class: Permanent 71 y/o female POD# 1 S/P P-V sling with autologus rectus fascia. Afebrile, VSS. Good U/O. Pain wellcontrolled Plan: DVT Prophylaxis: Seqential Compression Device and Ambulate Diet: Diabetic diet Discharge Plan: Home or self care Consults: None Other: encourage incentive spirometry and out of bed/ambulation QID as tolerated Voiding trial Discharge patient home today with or without singer depending upon voiding trial F/U TOPHER Yi 08/22/2011 8:57 * Yandy Alvarez RN - 08/21/2011 1601 EDT 1545: Report from Kae Martinez rn. 1600: Report given to trisha Donis on M6. Vss, no distress noted, pain minimal per pt, denies nausea, tolerating po ice chips with no complaints. Transport called. 1615: To M6 * Afua Martinez RN - 08/21/2011 1351 EDT Arrived very sleepy FS on arrival 189, indicated no discomfort Singer catheter draining blue urine 1403 seen by Melissa olvera CRNA, pt remains tachycardic, Dr. Hernandez will be consulted 1539, Farzana Irwin consulted about need for further Rx of HR in PACU. Nothing more now. Pt responds easily to voice, pain minimal 3/10 resting quietly, report to Melissa Michael RN * Cristal Allen RN - 08/14/2011 1352 EDT Milka Corbett has been instructed as follows regarding medication administration for the day ofthe scheduled procedure. Date of Surgery: 08/21/11 Instructions for Taking Medications Day of Surgery Medication Last Dose Hold DOS Take DOS fexofenadine (JESÚS) 60 mg tablet Yes Lismore-3 Fatty Acids-Vitamin E (FISH OIL) 1,000 mg Cap 08/14/11 stop metformin (GLUCOPHAGE) 1,000 mg tablet yes amitriptyline (ELAVIL) 100 mg tablet Takes at night gabapentin (NEURONTIN) 300 mg capsule Takes at night lisinopril (PRINIVIL, ZESTRIL) 10 mg tablet Takes at night clonazepam (KLONOPIN) 0.5 mg tablet Takes at night BUTALBITAL/ASPIRIN/CAFFEINE (FIORINAL ORAL) Can take if having migraine MULTIVITAMINS (MULTIVITAMIN ORAL) Stopped 08/14/11 docusate sodium (COLACE) 100 mg capsule Takes at night documented in this encounter H&P Notes * SLIPMAN, SCAN 2 - 08/29/2011 1153 EDT * Sandra Irwin PA - 08/21/2011 0838 EDT The preoperative history and physical which was performed within 30 days of this procedure has been reviewed and the clinically appropriate elements of the physical examination have been repeated. 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 POSTOPERATIVE DIAGNOSIS: Stress urinary incontinence with intrinsic sphincteric deficiency, cystocele and rectocele (grade 2). PROCEDURE: Pubovaginal sling with autologous rectus fascia, cystocele repair, rectocele repair and cystoscopy. SURGEON: Tim Molina MD SAMMYING MACHINE OPERATOR: Montrell Barron SA FINDINGS: After cystocele repair was completed, cystoscopy showed good efflux of urine from each ureteral orifice. After Stamey needle passage there was no evidence of needle entry into the bladder or urethra on cystoscopy. ANESTHESIA: General. ESTIMATED BLOOD LOSS: Less than 100 mL. FLUIDS: Approximately 1 L of crystalloid. SPECIMENS: None. DRAINS: A 16-Malay Singer catheter, and an Estrace-coated vaginal packing. STENTS: None. COMPLICATIONS: None. DISPOSITION: Stable to the postanesthesia care unit. I was present for the entire surgery. Please note, the patient received preoperative intravenous antibiotics with cefazolin 1 g within one hour of surgery. INDICATIONS: Milka Corbett is a 71-year-old female with a history of severe urinary incontinence.She also is status post previous hysterectomy and has recurrent pelvic prolapse with a cystocele and rectocele (grade 2). The patient underwent urodynamic testing in June of 2011. This showed a verylow leak point pressure of 25 cm of water or less. Given the patient has adequate bladder emptying,but does empty the bladder via Valsalva and a weak detrusor contraction. After discussion of various options including injectable agents, physical therapy and both synthetic and natural sling procedures, the patient wished to proceed with a pubovaginal sling using autologous rectus fascia. She alsodesired repair of her prolapse at the same time as the surgery. We had discussed graft interposition for this procedure, as well as nongraft usage. The patient desired no graft for the cystocele and rectocele repair. The patient understands the potential risks of surgery including bleeding, infection, injury to surrounding structures, urinary retention, voiding difficulties, need for indwelling or intermittent catheterization, and need for further surgeries. Understanding this, she wished to proceed. Informed consent was obtained preoperatively. NARRATIVE: The patient was correctly identified, was taken to the operating room. General anesthesia was established by the anesthesia service and the patient was placed in modified dorsal lithotomy position in [facility]. The lower abdomen and vaginal introitus were shaved, prepped and draped in standard sterile fashion. We began the surgery in the abdomen to harvest the rectus fascia. The patient was status post previous operations including a midline incision for a hysterectomy, as well as a lower Pfannenstiel incision for oophorectomy. This was a previous right paramedian incision forappendectomy. We performed a Pfannenstiel incision just above her previous incision with a #15 blade. This was extended approximately 4.5 cm and dissection was carried down through a fatty abdominal wall until the rectus sheath could be identified approximately 3 or 4 inches below the skin. At thispoint, there was scarification in this area from previous surgery. The fascia was carefully clearedoff the subcutaneous fat and superficial Camper's and Mary's layers, so that a segment of rectus fascia could be harvested for use for our sling material. At this point, once the fascia was clear, the rectus sheath was harvested in a transverse fashion and a segment approximately 2 x 8 cm was obta ined. This was passed off the field and soaked in antibiotic solution. Hemostasis was achieved within the rectus muscle with cautery. Caudad and cranial leaflets of the rectus sheath were mobilized off the rectus muscle and then reapproximated to close the fascial defect using 0 PDS. There was good hemostasis prior to closure of the rectus sheath. The wound was irrigated and a moistened laparotomy pad was left in the abdominal incision. Attention was then turned to the vaginal portion of the surgery. A weighted vaginal speculum was placed and a [place] retractor with retracting hooks was placed for adequate exposure to the vagina. At this point, the anterior vaginal wall was grasped between Allis clamps. A 16-Malay Singer catheter was placed into the bladder. The patient has a very foreshortened urethra with a urethral length of approximately 2 to 2.5 cm. Approximately 10 mL of vasopressin was instituted in the submucosal plane and the anterior vaginal wall. A midline sagittal incision was made from the mid urethra down through the cystocele defect with a 15 blade. Careful, sharp dissection was used to clear off the vaginal wall from the underlying urethra, bladder neck, and laterally towards the pubocervical fascia. Proximally, we cleared it up to the vaginal apex. At this point, the cystocele defect was repaired with horizontal mattress sutures of 2-0 PDS, bringing the stronger pubocervical fascia down towards the midline, as well as the lateral bladder fascia. At this point, the retropubic space was entered with the patient in the deep Trendelenburg position by piercing curved Pleitez scissors through the endopelvic fascia towards the ipsilateral shoulder on each side.Finger confirmation confirmed entry into the retropubic space. Stamey needles were obtained and passed from the abdominal incision out through the vaginal incision on either side of the bladder neck.Cystourethroscopy was then performed with both a 12 and 70-degree lens. Indigo carmine had been administered by the anesthesia service. The entire bladder and urethra were visualized. There was no evidence of intravesical tumor, stone or diverticula. There was good efflux of indigo carmine from each ureteral orifice, and there was no evidence whatsoever of Stamey needle entry into the bladder or urethra. At this point, the bladder was re-drained with the Singer catheter. The previously harvestedsling was attached to a total of 4 sutures, each of 0 Prolene. This was done in each corner with the corner folded over to reinforce its attachment to the sling. The sling sutures were placed throughthe eyelets of the Stamey needles, which upon reversal of the Stamey needles pulled the sutures outto the abdominal wall. The sling was then positioned directly at the bladder neck and tacked into position at the 6 and 12 o'clock position with 3-0 Vicryl. At this point, the table was flattened out. The sling suture was then tied across the midline over the surgical first assistant's finger being used as a spacer, which was placed at the level of the pubic bone. There was good apposition of the sling with theurethra, and upon time the sling did not appear unduly tight, but it is in good apposition. At thispoint, the wound was copiously irrigated. The vaginal wall was minimally trimmed. The vaginal incision was closed with a running locking 2-0 Vicryl. Attention was then turned towards the rectocele repair. The posterior vaginal wall was grasped between Allis clamps. There was a moderate rectocele defect. The submucosal plane was infiltrated with 10 mL of vasopressin. A midline posterior vaginal wall incision was made. This incision was T'd off near the posterior fourchette. At this point, the vaginal epithelium was dissected off the rectum laterally towards the levators. The defect was then closed in an interrupted fashion using horizontal mattress sutures of 2-0 PDS, bringing the stronger lateral fascia towards the midline. Care was taken not to take deep bites into the levator musculature. Once the rectocele defect was closed, the posterior vaginal wall was minimally trimmed and then closed with a running locking 2-0 Vicryl. At this point, the abdominal incision was copiously irrigate d with antibiotic irrigation. The abdominal incision was closed in two layers with 3-0 Vicryl for the subcutaneous tissues, followed by 4-0 Monocryl for the skin in a subcuticular fashion, followed by an Octylseal dressing. At this point, the Singer catheter was left to gravity. An Estrace-coated vaginal packing was placed in the vagina. The patient was awakened from anesthesia and taken to recovery room in stable condition. There were no complications noted and she tolerated the procedure well.I was present for the entire surgery. Unless otherwise noted, there were no complications, no blood loss, no cultures obtained, no specimens removed, and no drains retained. Tim Molina MD 02 11 PM / Tim Farrell. MD Jesse cs Confirmation: [id number] Dictation ID: [id number] cc:Agustin Boykin MD * Anesthesia Procedure Notes - SLIPMAN, SCAN 2 - 08/21/2011 1338 EDT * OR PreOp - SLIPMAN, SCAN 2 - 08/21/2011 1326 EDT * Anesthesia Preprocedure Evaluation - SLIPMAN, SCAN 2 - 08/21/2011 1001 EDT documented in this encounter Miscellaneous Notes * Scanned Note-Null - SLIPMAN, SCAN 2 - 08/24/2011 2202 EDT * Scanned Note-Null - SLIPMAN, SCAN 2 - 08/24/2011 2202 EDT * Plan of Care - Romy Menezes RN - 08/22/2011 1511 EDT Problem: DISCHARGE PLANNING Goal: Patient???s Continuum Of Care Needs Are Met Data: Pt d/c to home with self-care. Action: Void trial completed and IV removed. Reviewed d/c plan with patient and her including Rx, follow-up, symptoms to call MD about. Response: Pt stable at time of d/c. Left in WC with . Romy Menezes RN 08/22/2011 15:08 * Plan of Care - Silvia Gr RN - 08/22/2011 0344 EDT Problem: PAIN Goal: Patient???s pain/discomfort is manageable/tolerable Data: Patient c/o pain in abd and vagina 06/15. Action: Medicated with PRN tylenol and dilaudid. Response: Patient is now resting comfortably, will continue to monitor. Silvia Gr RN 08/22/2011 3:43 * Plan of Care - Jewels Wheeler RN - 08/21/2011 1636 EDT Problem: OXYGENATION/REPIRATORY FUNCTION Goal: Patient will achieve/maintain baseline respiratory rate/effort Outcome: Ongoing Active Multi-Disciplinary problems: FALL RISK [744709] (08/21/11) HEMODYNAMIC STATUS [210550] (08/21/11) OXYGENATION/REPIRATORY FUNCTION [480630] (08/21/11) PAIN [[id number]] (08/21/11) MOBILITY [376062] (08/21/11) KNOWLEDGE DEFICIT,EDUCATION,DISCHARGE PLAN [[id number]] (08/21/11) Data: Patient arrived on M6, minimal pain (06/15). A&Ox3. 3L NC, O2sat of 96%. Singer draining clear blue-tinted urine. Abd incision CDI, Small to moderate vaginal bleeding. Action: q4h VS, ambulated patient, administered Dilaudid PRN for pain. Response: Patient resting comfortably, tolerated short ambulation well. 04/17 pain. Continue to monitor. JEWELS WHEELER RN 08/21/2011 22:51 * Anesthesia Post-Mehreen Batista - 08/21/2011 1616 EDT Post Anesthesia Evaluation Note Date of Service: 08/21/2011 Milka Corbett, a 71 y.o. year old female has received General Anesthesia She has been evaluated, assessed and discharged from anesthesia care with stable cardiorespiratory function and alert mental status. The last set of recorded vital signs and pain rating were reviewed: Temp: 36.8 ??C (98.2 ??F) (08/21/11 1500), Heart Rate: 102 BPM (08/21/11 1600), BP: 127/70 mmHg (08/21/11 1600), Resp: 11 (08/21/11 1600), SpO2: 97 % (08/21/111599),Numeric Pain Level (Scale 1-10): 2 Milka Corbett participated in this evaluation unless otherwise noted. Her pain, nausea and vomiting have been managed and her body temperature and fluid balance have been restored. Additional monitoring and assessment needs have been addressed. If present, any postoperative events are documented below. If the regional block for postoperative analgesia was intended to last greater than 48 hours, Milka Corbett will be followed by the Acute Pain Service. Doing well. No apparent anesthetic complications. MEHREEN BURCH MD 08/21/2011 16:16 * Brief Op Note - Tim Molina MD - 08/21/2011 1315 EDT [facility] Urologic Surgery Brief Post-Op Note Date of Surgery: 08/21/2011 Surgeon: Tim Molina MD Assistants: Montrell Barron Pre-Op Diagnosis: HINA with ISD, Cystocele and Rectocele Post-Op Diagnosis: Same Procedure(s): Pubovaginal Sling with Autologous Rectus Fascia; Cystocele Repair, Rectocele Repair and cystoscopy Findings: +efflux of urine from each UO post cystocele repair; no needle entry into bladder or urethra. Anesthesia Type: General The estimated blood loss was less than 100 mL Unless otherwise noted, there were no specimens removed, cultures obtained, or drains retained. Fluids: Milka Corbett received Crystalloids 1,000 mL for fluid replacement. Urine Output: ? Specimens/Cultures: None Drains/Packs: Kerlix Packing placed in the vagina and Urinary Catheter (Singer) inserted. Stents: None Complications: None Disposition and Condition: Milka Corbett was sent to PACU in Stable condition. Tim Molina MD 08/21/2011 13:15 documented in this encounter Plan of Treatment Not on file documented as of this encounter Procedures Procedure Name Priority Date/Time Associated Diagnosis Comments ECG REPORT - SCANNED 08/24/2011 22:02 EDT GLUCOSE, GLUCOMETER Routine 08/22/2011 1 1:44 EDT GLUCOSE, GLUCOMETER Routine 08/22/2011 7 :11 EDT COMPLETE BLOOD COUNT Routine 08/22/2011 3:28 EDT BUN Routine 08/22/2011 3:28 EDT CREATININE Routine 08/22/2011 3:28 EDT ELECTROLYTES Routine 08/22/2011 3:28 EDT GLUCOSE, GLUCOMETER Routine 08/21/2011 2 1:09 EDT GLUCOSE, GLUCOMETER Routine 08/21/2011 1 9:35 EDT GLUCOSE, GLUCOMETER Routine 08/21/2011 1 3:36 EDT GLUCOSE, GLUCOMETER Routine 08/21/2011 8 :38 EDT documented in this encounter Results * ECG REPORT - SCANNED (08/24/2011 22:02 EDT) 08/24/2011 22:0 2 EDT Narrative Transcriptions SLIPMAN, SCAN 2 - 08/24/2011 22:02 EDT Scan 2 Food Service Supervisor PROCEDURE/MINOR JAVY GICAL ORDERABLES * (ABNORMAL) GLUCOSE, GLUCOMETER (08/22/2011 11:44 EDT) Glucose, Fingerstick 162(H) 70 - 100 mg/dl [facility] [place] [id number] [facility] Comment:Test Performed by rsing Services 08/22/2011 11:4 4 EDT 08/22/2011 11:45 EDT Tim Molina MD CHEMISTRY & BLOOD G ORDERABLES Performing Organization Address [facility] de Phone Number [facility] [address] [place] [address] * (ABNORMAL) GLUCOSE, GLUCOMETER (08/22/2011 7:11 EDT) Glucose, Fingerstick 137(H) 70 - 100 mg/dl [facility] [place] [id number] [facility] Comment:[facility] 08/22/2011 7:11 EDT 08/22/2011 7:13 EDT Tim Molina MD CHEMISTRY & BLOOD G ORDERABLES Performing Organization Address [facility] Phone Number [facility] [address] [place] [address] * CREATININE (08/22/2011 3:28 EDT) Creatinine 0.54 0.52 - 1.04 mg/dl [facility] GFR, Calculated >60 >60 ml/min/1.7 3m2 [facility] Blood specimen (specimen) 08/22/2011 3:28 EDT 08/22/2011 3:42 EDT Sandra Irwin PA-C CHEMISTRY & BLO OD GAS ORDERABLES Performing Organization Address [facility] de Phone Number [facility] [address] [place] [address] * BUN (08/22/2011 3:28 EDT) BUN 13 10 - 26 mg/dl [facility] Blood specimen (specimen) 08/22/2011 3:28 EDT 08/22/2011 3:42 EDT Sandra OBANDO-C CHEMISTRY & BLO OD GAS ORDERABLES Performing Organization Address [facility] de Phone Number [facility] [address] [place] [address] * (ABNORMAL) ELECTROLYTES (08/22/2011 3:28 EDT) Sodium 132(L) 136 - 145 mEq/L [facility] Potassium 3.5 3.5 - 5.0 mEq/L [facility] Chloride 97 96 - 110 mEq/L [facility] CO2 26 24 - 32 mEq/L [facility] Blood specimen (specimen) 08/22/2011 3:28 EDT 08/22/2011 3:42 EDT Sandra OBANDO-C CHEMISTRY & BLO OD GAS ORDERABLES Performing Organization Address [facility] de Phone Number [facility] [address] [place] [address] * (ABNORMAL) HEMAGRAM (08/22/2011 3:28 EDT) WBC 12.59(H) 4.0 - 12.4 K/cmm [facility] RBC 3.56(L) 3.86 - 5.04 M/cmm [facility] Hemoglobin 11.4(L) 11.6 - 15.2 gm/dl [facility] HCT 33.6(L) 34.9 - 44.4 % [facility] MCV 94 81 - 98 fl [facility] MCH 32.0 26.7 - 33.3 pg [facility] MCHC 33.9 32.1 - 35.9 gm/dl [facility] PLT 152 141 - 320 K/cmm [facility] RDW-CV 13.6 11.7 - 14.6 % [facility] Blood specimen (specimen) 08/22/2011 3:28 EDT 08/22/2011 3:42 EDT Sandra Irwin PA-Zoey HEMATOLOGY & PF 4 ORDERABLES Performing Organization Address [facility] de Phone Number [facility] [address] [place] [address] * (ABNORMAL) GLUCOSE, GLUCOMETER (08/21/2011 21:09 EDT) Glucose, Fingerstick 170(H) 70 - 100 mg/dl [facility] [place] [id number] [facility] Comment:Test Performed by Nu [facility] Services 08/21/2011 21:0 9 EDT 08/21/2011 21:28 EDT Tim Molina MD CHEMISTRY & BLOOD G ORDERABLES Performing Organization Address [facility] de Phone Number [facility] [address] [place] [address] * (ABNORMAL) GLUCOSE, GLUCOMETER (08/21/2011 19:35 EDT) Glucose, Fingerstick 190(H) 70 - 100 mg/dl [facility] [place] [id number] [facility] Comment:Test Performed by Nu [facility] Services 08/21/2011 19:3 5 EDT 08/21/2011 19:40 EDT Tim Molina MD CHEMISTRY & BLOOD G ORDERABLES Performing Organization Address [facility] de Phone Number [facility] [address] [place] [address] * (ABNORMAL) GLUCOSE, GLUCOMETER (08/21/2011 13:36 EDT) Glucose, Fingerstick 189(H) 70 - 100 mg/dl [facility] [place] [id number] [facility] Comment:Test Performed by Nu [facility] Services 08/21/2011 13:3 6 EDT 08/21/2011 16:10 EDT Tim Molina MD CHEMISTRY & BLOOD G ORDERABLES Performing Organization Address [facility]/ZIP Co de Phone Number [facility] [address] [place] [address] * (ABNORMAL) GLUCOSE, GLUCOMETER (08/21/2011 8:38 EDT) Glucose, Fingerstick 142(H) 70 - 100 mg/dl [facility] [place] [id number] [facility] Comment:Test Performed by [facility] 08/21/2011 8:38 EDT 08/21/2011 8:44 EDT Tim Molina MD CHEMISTRY & BLOOD G ORDERABLES Performing Organization Address [facility] Co de Phone Number [facility] [address] [place] [address] documented in this encounter Visit Diagnoses Not on filedocumented in this encounter Administered Medications Inactive Administered Medications - up to 3 most recent administrations Medication Order MAR Action Action Date Dose Rate Site acetaminophen (TYLENOL) tablet 650 mg 650 mg, oral, EVERY 4 HOURS PRN, Starting on Sat08/21/11 at 1646, Until Sat08/22/11 at 1710, Pain, Routine, On Unit Given 08/22/2011 12:24 EDT 650 mg Given 08/22/2011 5:59 EDT 650 mg Given 08/21/2011 23:10 EDT 650 mg amitriptyline (ELAVIL) tablet 100 mg 100 mg, oral, AT BEDTIME, First dose on Sat08/21/11 at 2100, Until Discontinued, Routine, On Unit Given 08/21/2011 20:52 EDT 100 mg ceFAZolin (ANCEF) 1,000 mg in sodium chloride 0.9 % 50 mL IVPB 1,000 mg, intravenous, Administer over 30 Minutes, EVERY 8 HOURS, 3 doses, First dose on Sat08/21/11 at 1430, Last dose on Sat08/22/11 at 0800, Routine, On Unit Given 08/22/2011 8:16 EDT 1,000 mg Given 08/21/2011 23:12 EDT 1,000 mg Given 08/21/2011 14:37 EDT 1,000 mg ceFAZolin (ANCEF) syringe 1 g 1 g, intravenous, Administer over 10 Minutes, PRE-OP ONCE, 1 dose, On Sat08/21/11 at 0945, Routine Given by Other 08/21/2011 10:08 EDT 1 g clonAZEPAM (KLONOPIN) tablet 0.5 mg 0.5 mg, oral, AT BEDTIME, First dose on Sat08/21/11 at 2100, Until Discontinued, Routine, On Unit Given 08/21/2011 20:52 EDT 0.5 mg docusate sodium (COLACE) capsule 100 mg 100 mg, oral, 2 TIMES DAILY, First dose on Sat08/21/11 at 2100, Until Discontinued, Routine, On Unit Given 08/22/2011 8:16 EDT 100 mg Given 08/21/2011 20:51 EDT 100 mg fentanyl citrate (PF) 50 mcg/mL injection 25-100 mcg 25-100 mcg, intravenous, EVERY 5 MIN PRN, Starting on Sat08/21/11 at 1310, Until Sat08/21/11 at 1627, Pain, Routine, Recovery (only) Given 08/21/2011 1 5:06 EDT 25 mcg Given 08/21/2011 14:41 EDT 25 mcg Given 08/21/2011 14:30 EDT 50 mcg fexofenadine (JESÚS) 12 hr tablet 180 mg 180 mg, oral, DAILY, First dose on Sat08/21/11 at 1715, Until Discontinued, Routine, On Unit Given 08/22/2011 8:16 EDT 1 80 mg Given 08/21/2011 18:18 EDT 180 mg gabapentin (NEURONTIN) capsule 300 mg 300 mg, oral, 3 TIMES DAILY, First dose on Sat08/21/11 at 2100, Until Discontinued, Routine, On Unit Given 08/22/2011 8:17 EDT 300 mg Given 08/21/2011 20:51 EDT 300 mg HYDROmorphone (DILAUDID) tablet 2-4 mg 2-4 mg, oral, EVERY 4 HOURS PRN, Starting on Sat08/21/11 at 1646, Until Sat08/22/11 at 1710, Pain, Routine, On Unit Given 08/22/2011 1:57 EDT 2 mg Given 08/21/2011 17:49 EDT 2 mg HYDROmorphone (PF) (DILAUDID) 1 mg/mL injection 0.2-1 mg 0.2-1 mg, intravenous, EVERY 10 MINUTES PRN, Starting on Sat08/21/11 at 1310, Until Sat08/21/11 at 1627, Pain, Routine, Recovery (only) Given 08/21/2011 1 5:07 EDT 0.3 mg Given 08/21/2011 14:30 EDT 0.3 mg insulin aspart (NOVOLOG FlexPen) injection subcutaneous, 3 TIMES DAILY WITH MEALS, First dose on Sat08/21/11 at 1715, Until Discontinued, Routine Given 08/22/2011 12:27 EDT 1 Units Given 08/21/2011 19:48 EDT 2 Units lactated ringers (LR) infusion at 25 mL/hr, intravenous, CONTINUOUS, Starting on Sat08/21/11 at 0900, Until Sat08/22/11 at 0702, Routine, Pre-Op DOS Rx Approved New Bag 08/21/2011 8:46 EDT 25 mL/hr lactated ringers (LR) infusion at 125 mL/hr, intravenous, CONTINUOUS, Starting on Sat08/21/11 at 1715, Until Sat08/22/11 at 1710, Routine, On Unit New Bag 08/21/2011 23:15 EDT 125 mL/hr New Bag 08/21/2011 17:49 EDT 125 mL/hr lisinopril (PRINIVIL, ZESTRIL) tablet 10 mg 10 mg, oral, DAILY, First dose on Sat08/21/11 at 1715, Until Discontinued, Routine, On Unit Given 08/21/2011 18:18 EDT 10 mg metoprolol (LOPRESSOR) 5 mg/5 mL injection 1 dose, Starting on Sat08/21/11 at 1419, Until Sat08/21/11 at 1421 Given by Other 08/21/2011 14:21 EDT 3 mg metoprolol (LOPRESSOR) injection 5 mg 5 mg, intravenous, NOW X1, 1 dose, On Sat08/21/11 at 1430, Routine Given by Other 08/21/2011 15:14 EDT 5 mg phenazopyridine (PYRIDIUM) tablet 200 mg 200 mg, oral, 3 TIMES DAILY PRN, 9 doses, Starting on Sat08/21/11 at 1646, Until Sat08/22/11 at 1710, Pain, Routine, On Unit Given 08/22/2011 8:17 EDT 200 mg documented in this encounter Discontinued Medications Medication Sig Discontinue Reason Start Date End Da te meclizine (ANTIVERT) 25 mg tablet Take 1 Tab by mouth 4 times daily as needed. verigo Error 06/06/2009 08/14/2011 omeprazole (PRILOSEC) 20 mg capsule Take 40 mg by mouth daily as needed. Error 08/14/2011 docusate sodium (COLACE) 100 mg capsule Take 100 mg by mouth daily as needed. 08/22/2011 documented as of this encounter Historical Medications * This list may reflect changes made after this encounter. Medication Sig Dispensed Refills Start Date End Date fexofenadine (JESÚS) 60 mg tablet Take 180 mg by mouth daily. added in this encounter Active and Recently Administered Medications Times are shown in EDT. Scheduled Medication Order 08/20/2011 08/21/2011 08/22/2011 amitriptyline (ELAVIL) tablet 100 mg (CANCELED) 100 mg, oral, AT BEDTIME, First dose on Sat08/21/11 at 2100, Until Discontinued, Routine, On Unit 2051 (Given - Provider: Jewels Wheeler RN) ceFAZolin (ANCEF) 1,000 mg in sodium chloride 0.9 % 50 mL IVPB (COMPLETED) 1,000 mg, intravenous, Administer over 30 Minutes, EVERY 8 HOURS, 3 doses, First dose on Sat08/21/11 at 1430, Last dose on Sat08/22/11 at 0800, Routine, On Unit 1437 (Given - Provider: Afua Martinez RN)2312 (Given - Provider: Silvia Gr RN) 0816 (Given - Provider: Romy Menezes RN) ceFAZolin (ANCEF) syringe 1 g (COMPLETED) 1 g, intravenous, Administer over 10 Minutes, PRE-OP ONCE, 1 dose, On Sat08/21/11 at 0945, Routine 0945 (Due)1008 (Given by Other - Provider: Lana Bowles - Comment: Administered by Krunal AREA RELIEF PILOT) clonAZEPAM (KLONOPIN) tablet 0.5 mg (CANCELED) 0.5 mg, oral, AT BEDTIME, First dose on Sat08/21/11 at 2100, Until Discontinued, Routine, On Unit 2051 (Given - Provider: Jewels Wheeler RN) docusate sodium (COLACE) capsule 100 mg (CANCELED) 100 mg, oral, 2 TIMES DAILY, First dose on e 08/21/11 at 2100, Until Discontinued, Routine, On Unit 2050 (Given - Provider: Jewels Wheeler RN) 0816 (Given - Provider: Romy Menezes RN) fexofenadine (JESÚS) 12 hr tablet 180 mg (CANCELED) 180 mg, oral, DAILY, First dose on e 08/21/11 at 1715, Until Discontinued, Routine, On Unit 1817 (Given - Provider: Jewels Wheeler RN) 0816 (Given - Provider: Romy Menezes RN) gabapentin (NEURONTIN) capsule 300 mg (CANCELED) 300 mg, oral, 3 TIMES DAILY, First dose on e 08/21/11 at 2100, Until Discontinued, Routine, On Unit 2050 (Given - Provider: Jewels Wheeler RN) 0817 (Given - Provider: Romy Menezes RN)1400 (Due) insulin aspart (NOVOLOG FlexPen) injection (CANCELED) subcutaneous, 3 TIMES DAILY WITH MEALS, First dose on e 08/21/11 at 1715, Until Discontinued, Routine 1948 (Given - Provider: Jewels Wheeler RN) 0817 (Not Given - Provider: Romy Menezes RN - Reason: Order parameters not met)1227 (Given - Provider: Romy Menezes RN) lisinopril (PRINIVIL, ZESTRIL) tablet 10 mg (CANCELED) 10 mg, oral, DAILY, First dose on Sat08/21/11 at 1715, Until Discontinued, Routine, On Unit 1817 (Given - Provider: Jewels Wheeler RN) 0816 (Hold - Provider: Romy Menezes RN - Reason: Order parameters not met - Comment: BP 92/53) metoprolol (LOPRESSOR) injection 5 mg (COMPLETED) 5 mg, intravenous, NOW X1, 1 dose, On e 08/21/11 at 1430, Routine 1430 (Due)1514 (Given by Other - Provider: Afua Martinez RN - Comment: given by Dr. oberding) Continuous Medication Order 08/20/2011 08/21/2011 08/22/2011 lactated ringers (LR) infusion (CANCELED) at 25 mL/hr, intravenous, CONTINUOUS, Starting on Sat08/21/11 at 0900, Until Sat08/22/11 at 0702, Routine, Pre-Op DOS Rx Approved 0846 (New Bag - Provider: Cristal Allen RN) lactated ringers (LR) infusion (CANCELED) at 125 mL/hr, intravenous, CONTINUOUS, Starting on Sat08/21/11 at 1715, Until Sat08/22/11 at 1710, Routine, On Unit 1749 (New Bag - Provider: Moisés Wheeler, TRISHA)2315 (New Bag - Provider: Silvia Gr RN) PRN Medication Order 08/20/2011 08/21/2011 08/22/2011 acetaminophen (TYLENOL) tablet 650 mg 650 mg, oral, EVERY 4 HOURS PRN, Starting on Sat08/21/11 at 1646, Until Sat08/22/11 at 1710, Pain, Routine, On Unit 2310 (Given - Provider: Silvia Gr, RN) 0559 (Given - Provider: Silvia Gr RN)1224 (Given - Provider: Romy Menezes RN) fentanyl citrate (PF) 50 mcg/mL injection 25-100 mcg (CANCELED) 25-100 mcg, intravenous, EVERY 5 MIN PRN, Starting on 08/21/11 at 1310, Until Sat08/21/11 at 1627, Pain, Routine, Recovery (only) 1430 (Given - Provider: Afua Martinez RN)1441 (Given - Provider: Afua Martinez, RN)1506 (Given - Provider: Afua Martinez, TRISHA) HYDROmorphone (DILAUDID) tablet 2-4 mg 2-4 mg, oral, EVERY 4 HOURS PRN, Starting on e 08/21/11 at 1646, Until Sat08/22/11 at 1710, Pain, Routine, On Unit 1749 (Given - Provider: Jewels Wheeler RN) 0157 (Given - Provider: Silvia Gr RN) HYDROmorphone (PF) (DILAUDID) 1 mg/mL injection 0.2-1 mg (CANCELED) 0.2-1 mg, intravenous, EVERY 10 MINUTES PRN, Starting on Sat08/21/11 at 1310, Until Sat08/21/11 at 1627, Pain, Routine, Recovery (only) 1430 (Given - Provider: Afua Martinez RN)1507 (Given - Provider: Afua Martinez RN) phenazopyridine (PYRIDIUM) tablet 200 mg (CANCELED) 200 mg, oral, 3 TIMES DAILY PRN, 9 doses, Starting on Sat08/21/11 at 1646, Until Sat08/22/11 at 1710, Pain, Routine, On Unit 0817 (Given - Provid er: Romy Menezes RN) No Frequency Medication Order 08/20/2011 08/21/2011 08/22/2011 metoprolol (LOPRESSOR) 5 mg/5 mL injection (COMPLETED) 1 dose, Starting on Sat08/21/11 at 1419, Until Sat08/21/11 at 1421 1421 (Given by Other - Provider: Afua Martinez RN - Comment: given by melissa olvera CRNA) documented in this encounter Orders Medications Ordered That Ron ht Not Have Been Administered Count Last Ordered Date First Ordered Date atropine 0.1 mg/mL 10 mL syringe 0.5 mg 1 0 08/21/2011 xpzkptdtfw-hzhvqjl-tjhngasa (FIORINAL) 50-325-40 mg capsule 1 Cap 1 08/21/2011 dextrose 50 % solution 12.5 g 1 08/21/2011 diphenhydrAMINE (BENADRYL) e lixir 12.5-25 mg 1 08/21/2011 glucagon (human recombinant) injection 1 mg 1 08/21/2011 hydrocodone-acetaminophen (L ORTAB;VICODIN) 5-500 mg per tablet 1-2 Tab 1 08/21/2011 HYDROmorphone (DILAUDID) tablet 2 mg 1 08/06 HYDROmorphone (PF) (DILAUDID ) 1 mg/mL injection 0.2-0.4 mg 1 08/21/2011 lactated ringers (LR) infusion 1 08/21/2011 magnesium hydroxide (MILK OF MAGNESIA) 400 mg/5 mL suspension 30 mL 1 08/21/2011 metoCLOPramide (REGLAN) injection 10 mg 2 0 08/21/2011 naloxone (NARCAN) injection 0.2 mg 1 2011 ondansetron (PF) (ZOFRAN) injection 2 mg 1 08/21/2011 ondansetron (PF) (ZOFRAN) injection 2-4 mg 1 08/21/2011 oxybutynin (DITROPAN) tablet 5 mg 1 012 oxycodone (ROXICODONE) immed iate release tablet 5 mg 1 08/21/2011 oxycodone-acetaminophen (PER COCET) 5-325 mg per tablet 1-2 Tab 1 08/21/2011 Nursing Count Last Ordered Date First Orde red Date PLACE SEQUENTIAL COMPRESSION DEVICE 1 08/20 Admission Count Last Ordered Date First Orde red Date NOTIFY PPS OF DISCHARGE COMPLETE 1 08/22/19 12 ADMIT TO OBSERVATION 1 08/21/2011 ADMITTING CONDITION 1 08/21/2011 NON-TEACHING SERVICE 1 08/21/2011 NOTIFY PPS PATIENT ARRIVAL IN PACU 1 2011 NOTIFY PPS PATIENT TRANSFERRED OUT OF PACU 1 08/21/2011 PPS NOTIFICATION OF PATIENT ARRIVAL ON UNIT 1 08/21/2011 Discharge Count Last Ordered Date First Orde red Date DISCHARGE PATIENT 1 08/22/2011 documented in this encounter Care Teams Metal Or Wood Blocker Relationship Specialty Start Date End Date Agustin Ramires MD [facility] ABDULLAHI GEORGE,[facility] [address] [place] [id number] PCP - General 08/20/11 02/23/13 documented as of this encounter
--- OUTSIDE RECORDS SUMMARY | 2023-12-02 18:38 | XMS_ITS | Encounter Summary ---
Author Organization [facility] Address [address] [place] [address] Care Team Providers Care Sales And Leasing Consultant Name Role Phone Lizbet Zhang IN SERVICE EDUCATOR Primary Care Provider [phone] Salome Mcarthur PERSONAL VEHICLE ADVISOR Primary Care Provider [phone] Encounter Details Date Type Department Care Team (Late st Contact Info) Description 08/19/[address] [facility] Pathology & Laboratory Medicine - [address] [id number] Outr Resulting Lab, Provider Social History Tobacco [...] Priority Date/Time Associated Diagnosis Comments ZZCOVID-19 TEST [facility] PCR Today 08/19/2019 21:00 EDT COVID-19 TESTING Routine 08/19/2019 21:0 0 EDT documented in this encounter Results * COVID-19 TEST [facility] PCR (08/19/2019 21:00 EDT) Swab ENTIRE NASOPHARYNX / Unknown 08/19/2019 21:00 EDT 08/19/2019 23:27 EDT Provider Outr Resulting Lab MICROBIOLOGY - GENERAL ORDERABLES Performing Organization Address City/[facility] Co de Phone Number [facility] [address] [place] [address] * COVID-19 TESTING (08/19/2019 21:00 EDT) COVID-19 rt-PCR Result Negative Negative 08/20/2019 2:04 EDT [facility] Comment: This test has not [...] clinical observations, patient history, and epidemiological information. Performed on the Followap Fusion instrument Performing Lab [facility] Hospital Lab 08/20/2019 2:04 EDT [facility] Swab ENTIRE NASOPHARYNX / Unknown 08/19/2019 21:00 EDT 08/19/2019 23:27 EDT Provider Outr Resulting Lab MICROBIOLOGY - GENERAL ORDERABLES Performing Organization Address City/[facility]/ZIP Co de Phone Number [facility] [address] [place] [address] documented in this encounter Visit Diagnoses Not on filedocumented in this encounter Care Teams Sales And Leasing Consultant Relationship Specialty Start Date End Date Lizbet Zhang FNP [address] [place] [address] PCP - General 02/24/13 03/13/20 Salome Mcarthur NP [address] [place] [address] PCP - General 03/14/20 documented as of this encounter
--- OUTSIDE RECORDS SUMMARY | 2023-12-02 18:38 | XMS_ITS | Encounter Summary ---
Author Organization [facility] Address [address] [place] [address] Care Team Providers Care Basketball Coach Name Role Phone Lizbet Zhang BLOCK OPERATOR Primary Care Provider [phone] Encounter Details Date Type Department Care Team (Latest Contact Info) Description 01/15/2018 15:25 EDT - 01/15/2018 23:59 EDT Hospital Encounter [address] [address] Unknown, Provider, Discharge Disposition: Home or Self [...] 1 Tab by mouth daily before breakfast. Marcellus-3 Fatty Acids-Vitamin E (FISH OIL) 1,000 mg [...] Code Departure Means Destination Home or Self Residential documented in this encounter Plan of Treatment Not on file documented as of this encounter Visit Diagnoses Not on filedocumented in this encounter Care Teams Basketball Coach Relationship Specialty Start Date End Date Lizbet Zhang F[place] [facility] [place] [address] PCP - General 02/24/13 03/13/20 documented as of this encounter
--- OUTSIDE RECORDS SUMMARY | 2023-12-02 18:38 | XMS_ITS | Encounter Summary ---
Author Organization [facility] Address [address] [place] [address] Care Team Providers Care Workplace Trainer And Assessor Name Role Phone Unknown, Provider Primary Care Provider [phone] Agustin Ramires MD Primary Care Provider [phone] Kayleigh Peña Primary Care Provider + [phone] Agustin Ramires MD Primary Care Provider [phone] Lizbet Zhang APPRENTICE PHOTOGRAPHER Primary Care Provider [phone] Encounter Details Date Type Department Care Team (Late st Contact Info) Description 07/17/2010 Historical Results Only [facility] - Main [address] [address] Leland Boykin MD Social History Tobacco Use [...] AND FINE NEEDLE ASPIRATION)- ORDER ONLY Routine 07/17/2010 documented in this encounter Results * CYTOLOGY (NON-GYNECOLOGIC INCLUDING FLUIDS AND FINE NEEDLE ASPIRATION)- ORDER ONLY (07/17/2010) 07/17/2010 07/18/2010 9:[address] [facility] - 07/21/2010 15:57 EDT ----- ------- Name: MILKA MENDIETA ?: 42 ?Age/Sex: 78/F ?Unit#: [id number] ? Loc: LAB.OPX ? Status: REG REF ?? Reg Date: 07/17/10 ? Pt.Phone Number: ? ----- ------- Specimen: [id number] ? STATUS: SOUT ?Spec Date:07/17/10 ? Physician Copies: ?Leland Boykin MD ?? Tissues: ? Urine (CLEAN CATCH) ? CPT: 75697 ?? Units: ??1 ----- ------- ?? NON BUCK PRESSER CYTOLOGY DIAGNOSIS Urine,voided: ??Benign urothelial cells. ??Background inflammation. 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 SPECIMEN DESCRIPTION ? 50ml clear pale yellow fl, 1 cytospin Signed ____(signature on file)____ Anjel De La Torre M.D. 07/21/10 ?? By the signature above, the attending physician certifies that he/she has personally conducted a gross and/or microscopic examination of the described specimens and rendered or confirmed the above diagnosis. Test Performed by [facility], [address] [address] Speech Language Pathologist Assistant: Namrata Childs MD PHD ----- ------- Leland Boykin MD PATHOLOGY ORDERABLES Performing Organization Address City/State/[facility] Co de Phone Number [facility] documented in this encounter Visit Diagnoses Not on filedocumented in this encounter Care Teams Workplace Trainer And Assessor Relationship Specialty Start Date End Date Unknown, Provider, PCP - General 05/17/10 02/07/11 Agustin Ramires MD [address] [address] [place] [address] PCP - General 02/08/11 05/15/11 Kayleigh Peña PA [address] [place] [address] PCP - General 05/16/11 08/19/11 Agustin Ramires MD [facility] [address] [address] [place] [address] PCP - General 08/20/11 02/23/13 Lizbet Zhang FNP [address] [place] [address] PCP - General 02/24/13 03/13/20 documented as of this encounter
--- OUTSIDE RECORDS SUMMARY | 2023-12-02 18:38 | XMS_ITS | Encounter Summary ---
Author Organization [facility] Address [address] [place] [address] Care Team Providers Care Ship Engineer Name Role Phone Lizbet Zhang Primary Care Provider [phone] Encounter Details Date Type Department Care Team (Late st Contact Info) Description 01/15/2018 Historical Results Only [facility] Radiology Results [address] [place], [place] [id number] Ella Castle MD [address] [place] [address] Social History Tobacco Use Types Packs/Day Years [...] on filedocumented in this encounter Care Teams Ship Engineer Relationship Specialty Start Date End Date Lizbet Zhang FNP [address] [place], [place] [address] PCP - General 02/24/13 03/13/20 documented as of this encounter
--- OUTSIDE RECORDS SUMMARY | 2023-12-02 18:38 | XMS_ITS | Encounter Summary ---
Author Organization [facility] Address [address] [place] [address] Care Team Providers Care Harness Cutter Name Role Phone Avel Rivera MD Primary Care Provider Unav ailable Reason for Visit * Reason Onset Date Comments Other 05/18/2009 Encounter Details Date Type Department Care Team (Late st Contact Info) Description 05/18/2009 Telephone [facility] Family Medicine - [address] [place] [id number] Avel Rivera MD Other Social History Tobacco Use Types Packs/Day Years Used Date Smoking Tobacco: Never Assessed Sex and Gender Information Value Date Recorded Sex Assigned at Not on file Gender Identity Female 02/14/2022 14:15 EST Sexual Orientation Not on file documented as of this encounter Ordered Prescriptions Prescription Sig Dispensed Refills Start Date End Da te amitriptyline (ELAVIL) 100 mg tablet Take 1 Tab by mouth at bedtime. 30 Tab 5 05/18/2009 06/06/2009 documented in this encounter Miscellaneous Notes * Telephone Encounter - Ronny Stone - 05/18/2009 1645 EST Patient called again checking on this advised that it was sent in. She is checking with [facility]. * Telephone Encounter - Stefany Boudreaux - 05/18/2009 1310 EST PATIENT IS STILL WAITING FOR THIS TO BE CALLED INTO [facility]. THEY ARE THERE WAITING NOW FOR THE AMITRIPTYLENE. * Telephone Encounter - Christina Rudd - 05/18/2009 1214 EST Pt called from [facility] saying her Amitriptyline has not been called in there. She can be reached at [phone] ext [phone]. documented in this encounter Plan of Treatment Not on file documented as of this encounter Visit Diagnoses Not on filedocumented in this encounter Discontinued Medications Medication Sig Discontinue Reason Start Date End Da te amitriptyline (ELAVIL) 100 mg tablet Take 1 Tab by mouth at bedtime. Reorder 05/04/2009 05/18/2009 documented as of this encounter Care Teams Harness Cutter Relationship Specialty Start Date End Date Avel Rivera MD PCP - General 09/03/08 07/10/09 documented as of this encounter
--- OUTSIDE RECORDS SUMMARY | 2023-12-02 18:38 | XMS_ITS | Encounter Summary ---
Author Organization [facility] Address [address] [place] [address] Care Team Providers Care Regulator Pin Inserter Name Role Phone Jefe Zhangdenise Greer ALCOHOL AND DRUG COUNSELOR Primary Care Provider [phone] Encounter Details Date Type Department Care Team (Late st Contact Info) Description 01/16/2018 Historical Results Only [facility] Radiology Results [address] [place], [place] [id number] Ella Castle MD [address] [place] [phone] Social History Tobacco Use Types Packs/Day [...] Procedure Name Priority Date/Time Associated Diagnosis Comments CT CHEST WO CONTRAST 01/16/2018 17:03 EDT documented in this encounter Results * CT CHEST WO CONTRAST (01/16/2018 17:03 EDT) Anatomical Region Laterality Modality Chest Other 01/16/2018 17:0 3 EDT Narrative 01/16/2018 17:06 EDT ? EXAM: CAT SCAN/CHEST WITHOUT CONTRAST ? EX. D/ (1107) ? CLINICAL INFORMATION: ? R93.[address] ? F/U LLL LOBULATED MASS ? HX LOCALIZED CA IN 2006, NO RECURRENCE ? INDICATION: R93.[address], F/U LLL LOBULATED MASS, HX ? LOCALIZED CA IN 2006, NO RECURRENCE. ? COMPARISON: CT scan of the chest 10/17/2017. ? TECHNIQUE: Noncontrast CT scan of the chest was performed. ? FINDINGS: ? The elongated, tubular shaped nodular density measuring 21 mm long by ? 10 mm transverse by 9 mm AP centered within a zone of decreased lung ? attenuation in the medial basilar segment of the left lower lobe is ? unchanged. There is a calcified granuloma within the lateral aspect ? of the left lower lobe on axial image 61 of series 2, unchanged. ? There are a few new faint groundglass opacities within the anterior ? right upper lobe (axial images 40 through 46 of series 2) likely ? minimal interstitial pneumonitis. A 5 mm diametered pleural-based ? density in the medial aspect of the right upper lobe on axial image ? 40 of series 2 is unchanged. ? Mild atherosclerosis of the thoracic aorta. No aneurysm. No ? mediastinal or hilar lymphadenopathy. Unremarkable adnexa. No ? pericardial or pleural effusions. ? Status post cholecystectomy. Calcified granulomas within the liver. ? 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 ? IMPRESSION: ??Unchanged left lower lobe smooth tubular shaped nodule ? measuring 21 mm x 10 mm x 9 within hyperlucent lung in the left lower ? lobe. The findings are suspicious for intralobar sequestration. ? Consider further evaluation with CT angiogram. If this is not ? performed then additional follow-up CT in 9 months is recommended. ? This report has been flagged for a noncritical result requiring ? follow-up on the [employer] PACS findings application, to be tracked by ? the [facility] tracking system. ? REPORT SIGNED IN OTHER VENDOR SYSTEM 01/16/2018 ?Reported By: Francis Bustamante MD ? CC: LANI WALLIS ? Transcribed Date/Time: 01/16/2018 (1706) ? Hand Assembler For Puller Over: ? Printed Date/Time: 09/27/2018 (1346) ? PAGE 1 ? Signed Report ? Procedure Note Francis Bustamante MD - 02/12/2019 EXAM: CAT SCAN/CHEST WITHOUT CONTRAST EX. D/ (1107) CLINICAL INFORMATION: R93.[address] F/U LLL LOBULATED MASS HX LOCALIZED CA IN 2006, NO RECURRENCE INDICATION: R93.[address], F/U LLL LOBULATED MASS, HX LOCALIZED CA IN 2006, NO RECURRENCE. COMPARISON: CT scan of the chest 10/17/2017. TECHNIQUE: Noncontrast CT scan of the chest was performed. FINDINGS: The elongated, tubular shaped nodular density measuring 21 mm longby 10 mm transverse by 9 mm AP centered within a zone of decreasedlung attenuation in the medial basilar segment of the left lower lobe is unchanged. There is a calcified granuloma within the lateral aspect of the left lower lobe on axial image 61 of series 2, unchanged. There are a few new faint groundglass opacities within the anterior right upper lobe (axial images 40 through 46 of series 2) likely minimal interstitial pneumonitis. A 5 mm diametered pleural-based density in the medial aspect of the right upper lobe on axial image 40 of series 2 is unchanged. Mild atherosclerosis of the thoracic aorta. No aneurysm. No mediastinal or hilar lymphadenopathy. Unremarkable adnexa. No pericardial or pleural effusions. Status post cholecystectomy. Calcified granulomas within the liver. 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 IMPRESSION: Unchanged left lower lobe smooth tubular shaped nodule measuring 21 mm x 10 mm x 9 within hyperlucent lung in the leftlower lobe. The findings are suspicious for intralobar sequestration. Consider further evaluation with CT angiogram. If this is not performed then additional follow-up CT in 9 months is recommended. This report has been flagged for a noncritical result requiring follow-up on the [employer]erto PACS findings application, to be tracked by the [facility] tracking system. REPORT SIGNED IN OTHER VENDOR SYSTEM 01/16/2018 Reported By: Francis Bustamante MD CC: LANI WALLIS Transcribed Date/Time: 01/16/2018 (3982) Hand Assembler For Puller Over: Printed Date/Time: 09/27/2018 (9124) PAGE 1 Signed Report Ella Castle MD IMG CT ORDERABLES documented in this encounter Visit Diagnoses Not on filedocumented in this encounter Care Teams Regulator Pin Inserter Relationship Specialty Start Date End Date Lizbet Zhang FNP [facility] [place] [address] PCP - General 02/24/13 03/13/20 documented as of this encounter
--- OUTSIDE RECORDS SUMMARY | 2023-12-02 18:38 | XMS_ITS | Encounter Summary ---
Author Organization [facility] Address [address] [place] [address] Care Team Providers Care Chemical Librarian Name Role Phone Lizbet Zhang MATHEMATICS TEACHER Primary Care Provider [phone] Encounter Details Date Type Department Care Team (Latest Contact Info) Description 12/15/2015 9:36 EDT - 12/15/2015 23:59 EDT Hospital Encounter [address] [address] Unknown, Provider, Discharge Disposition: Home or Self [...] 1 Tab by mouth daily before breakfast. Early Branch-3 Fatty Acids-Vitamin E (FISH OIL) 1,000 mg [...] Code Departure Means Destination Home or Self Long-Term documented in this encounter Plan of Treatment Not on file documented as of this encounter Visit Diagnoses Not on filedocumented in this encounter Care Teams Chemical Librarian Relationship Specialty Start Date End Date Lizbet Zhang FNP [facility] [place] [address] PCP - General 02/24/13 03/13/20 documented as of this encounter
--- OUTSIDE RECORDS SUMMARY | 2023-12-02 18:38 | XMS_ITS | Encounter Summary ---
Author Organization [facility] Address [address] [place] [address] Care Team Providers Care Hvac Tech Name Role Phone Avel Rivera MD Primary Care Provider Unav ailable Encounter Details Date Type Department Care Team (Late st Contact Info) Description 06/24/2008 Before PRISM Converted Visit (Maple) [facility] - [facility] conversion [address] [place] [address] Dhruv De La Torre MD Social History Tobacco Use Types Packs/Day [...] Date/Time Associated Diagnosis Comments SURGICAL PATHOLOGY Routine 06/24/2008 0:00 EDT documented in this encounter Results * SURGICAL PATHOLOGY (06/24/2008 0:00 EDT) Pathology Report: SURGICAL PATHOLOGY REPORT ? Reports generated via electronic interface contain original data; ? however they are lacking the format of the original report. ? Caution should be taken when reading/interpreting unformatted reports. ? Name: ? MENDIETA, MILKA F ? Accession #: ? [id number] ? : ? 1940 (Age: 68) ??F ? Collect Date: ? 06/24/2008 ? Location: ? [facility] ? Receive Date: ? 06/24/2008 ? Provider: DHRUV MAICOL MD ? Copy to: CRYSTAL RATLIFF MD ? Final Pathologic Diagnosis: ? A. ??Bladder, base of previous tumor, biopsies ([facility] [id number] A D1-D2; ? 2008): ? 1. 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 dystrophic calcification and reactive change. See comment. ? 2. ? Muscularis propria is identified. ? B. ?? Bladder, inferior to main tumor, biopsy ([facility] [id number]; B D1-D2; ? 2008) ? 1. ?? Urothelial hyperplasia with chronic inflammation and reactive ? epithelial changes. ??See ? comment. ? 2. ?? Muscularis propria is identified. ? C. ?Bladder, tumor, resection ([facility] [id number]; 03/19/2008): ? 1. ?? Low grade papillary urothelial carcinoma, noninvasive. ? 2. ?? No muscularis propria identified. ? Comment: ? Thank you for the opportunity to review this case in consultation. ??I agree with your impression that the biopsy from the base of previous tumor shows ? broad papillary fronds, uniform epithelium and good maturation, including ? umbrella cells. ??These changes are consistent with hyperplasia and reactive ? change. ??I do not see recurrent low grade urothelial carcinoma. ??This case was ?? reviewed at the intradepartmental consultation conference. ??(Dr. Bejarano) ? Document reviewed and electronically signed by: ? Jake Bejarano MD ? Report ??Date: 06/25/2008 16:29 ? By the signature above, the attending physician certifies that he/she has ? personally conducted a gross and/or microscopic examination of the described ? specimens and rendered or confirmed the above diagnosis. ? Specimen(s) Received: ? [facility] [id number] (4), [id number] (1) ? Clinical History: ? Bladder cancer ? Gross Description: ? Five slides are received for review from [facility], one each labelled [id number] A D1, [id number] A D2, [id number] B D1, [id number] B D2, ? [id number]. ? End of Report ? [facility] 06/24/2008 06/24/2008 14: 46 EDT Dhruv De La Torre MD PATHOLOGY ORDERABLES Performing Organization Address City/State/[facility] Co de Phone Number [facility] [address] [place] [address] documented in this encounter Visit Diagnoses Not on filedocumented in this encounter Care Teams Hvac Tech Relationship Specialty Start Date End Date Avel Rivera MD PCP - General 09/03/08 07/10/09 documented as of this encounter
--- OUTSIDE RECORDS SUMMARY | 2023-12-02 18:38 | XMS_ITS | Encounter Summary ---
Author Organization [facility] Address [address] [place] [address] Care Team Providers Care Occupational Therapy Director Name Role Phone Unavailable Primary Care Provider Unavailabl e Encounter Details Date Type Department Care Team (Latest Contact Info) Description 06/24/2008 23:[address] [facility] - Other [address] [place] [address] Anjel De La Torre MD Discharge Disposition: Home or Self Care Social History Tobacco Use Types Packs/Day Years Used Date Smoking Tobacco: Never Assessed Sex and Gender Information Value Date Recorded Sex Assigned at Not on file Gender Identity Female 02/14/2022 14:15 EST Sexual Orientation Not on file documented as of this encounter Discharge Disposition Disposition Code Departure Means Destination Home or Self Care documented in this encounter Plan of Treatment Not on file documented as of this encounter Visit Diagnoses Not on filedocumented in this encounter
--- OUTSIDE RECORDS SUMMARY | 2023-12-02 18:38 | XMS_ITS | Encounter Summary ---
Author Organization [facility] Address [address] [place] [address] Care Team Providers Care Intelligence Officer Name Role Phone Avel Rivera MD Primary Care Provider Unav ailable Encounter Details Date Type Department Care Team (Late st Contact Info) Description 12/15/2007 Before PRISM Converted Visit (Maple) [facility] - Maple conversion [address] [place] [address] Avel Rivera MD Social History Tobacco Use Types Packs/Day Years Used Date Smoking Tobacco: Never Assessed Sex and Gender Information Value Date Recorded Sex Assigned at Not on file Gender Identity Female 02/14/2022 14:15 EST Sexual Orientation Not on file documented as of this encounter Progress Notes * Avel Rivera MD - 10/30/[address] [facility] PROGRESS/FOLLOWUP NOTE - 01/12/2008 PROBLEM Bronchitis, diabetes and hypertension. SUBJECTIVE Milka is here for followup of recent bronchitis as well as her diabetes and hypertension. She didget over coughand chest congestion taking a course of doxycycline. She has had a continued mild irritative cough that has bothered her since adding lisinopril to her atenolol. This did not really change with cutting back atenolol to 25 mg and her blood pressure is a little higher today. She does have chronic posterior pharyngeal drainage and has to cough out some thick phlegm each morning. also has recurring thrush, for which she uses an oral mouth rinse but she has been treated in the past with Diflucan on a fairly regular basis. Her feet are about the same. She did have recent blood tests. OBJECTIVE Blood pressure is 148/60 and pulse is 70. Weight is 168. Mouth appears clear. Neck is supple with no adenopathy. Lungs are clear. Heart sounds are normal. Extremities have no edema. I reviewed recent labs including glycohemoglobin 6.4, creatinine 0.6, cholesterol 157, LDL 66, \partriglycerides 306. ASSESSMENT 1. Diabetes, good control. 2. Hypertriglyceridemia. 3. Hypertension/slight blood pressure elevation. 4. Resolved bronchitis. PLAN 1. Resume atenolol 50 mg daily. She will report if this aggravates her cough or congestion. 2. I did prescribe Diflucan 150 mg, #6 tablets. She will take one now and repeat in a week and may repeat that cycle when needed for recurring mouth infection. 3. She was given flu vaccine. 4. I will see her in three months for a checkup examination. Signed by Avel Rivera MD 01/16/2008 11:18 Avel Rivera MD P Job ID [id number] A/[facility] Doc ID [id number] cc: * Avel Rivera MD - 10/30/[address] [facility] PROGRESS/FOLLOWUP NOTE - 12/15/2007 PROBLEM Cough. ANA M Jarquin is here to evaluate acute illness with persisting cough and chest congestion for the past five days. She has had some slight wheezing and occasional shortness of breath. She is concerned because she has history of pneumonia. She denies treatment or history of asthma or allergies. She does not believe she has had a fever. Her feet are better since increasing gabapentin to 200 mg t.i.d. OTHER MEDICATIONS 1. Amitriptyline 100 mg at bedtime. 2. Clonazepam 0.5 mg at bedtime. 3. Fiorinal p.r.n. headache. 4. Atenolol 50 mg. 5. Lisinopril 5 mg. 6. Aspirin 81 mg. OBJECTIVE Temperature is 97.2; O2 sat 97% on room air. Pulse is99. She does not appear to be in distress. Tympanic membranes are clear. Throat is clear. Sinuses are nontender. Neck is supple with no adenopathy. Examination of the lungs reveals slight rhonchi in left upper chest. Heart sounds are normal. Extremities have no edema. ASSESSMENT Bronchitis. PLAN 1. I will have her start doxycycline 100 mg b.i.d. for 10 days because of her history of pneumonia. 2. I also prescribed Tessalon 100 mg Perles 1 to 2 t.i.d. for cough. 3. She will breathe steam, keep up liquids and report if not improved in four or five days. Signed by Avel Rivera MD 12/19/2007 17:31 Avel Rivera MD A Job ID [id number] A/[facility] Doc ID [id number] cc: documented in this encounter Plan of Treatment Not on file documented as of this encounter Visit Diagnoses Not on filedocumented in this encounter Care Teams Intelligence Officer Relationship Specialty Start Date End Date Avel Rivera MD PCP - General 09/03/08 07/10/09 documented as of this encounter
--- OUTSIDE RECORDS SUMMARY | 2023-12-02 18:38 | XMS_ITS | Encounter Summary ---
Author Organization [facility] Address [address] [place] [address] Care Team Providers Care Model Builder Name Role Phone Agustin Ramires MD Primary Care Provider [phone] Kayleigh Peña Primary Care Provider [phone] Agustin Ramires MD Primary Care Provider [phone] Lizbet Zhang Primary Care Provider [phone] Encounter Details Date Type Department Care Team (Late st Contact Info) Description 04/11/[address] [facility] - Main [address] [address] Leland Boykin MD Social History Tobacco Use [...] AND FINE NEEDLE ASPIRATION)- ORDER ONLY Routine 04/11/2011 documented in this encounter Results * CYTOLOGY (NON-GYNECOLOGIC INCLUDING FLUIDS AND FINE NEEDLE ASPIRATION)- ORDER ONLY (04/11/2011) 04/11/2011 04/12/2011 9:1 9 EST Narrative [facility] - 04/13/2011 8:50 EST ----- ------- Name: MILKA MENDIETA ?: 42 ?Age/Sex: 78/F ?Unit#: [id number] ? Loc: LAB.OPX ? Status: REG REF ?? Reg Date: 04/11/11 ? Pt.Phone Number: ? ----- ------- Specimen: [id number] ?STATUS: SOUT ?Spec Date:04/11/11 ? Physician Copies: ?Leland Boykin MD ?? Tissues: ? Urine (VOID) ? CaseyKayleigh L. CPT: 87800 ?? Units: ??1 ----- ------- ?? NON BEAD FILLER CYTOLOGY DIAGNOSIS Urine, voided Benign urothelial cells, occasional reactive urothelial cells. ----- ------- ?CLINICAL HISTORY HX OF TCC OF BLADDER ?? S/P BCG RX ----- ------- ? SPECIMEN DESCRIPTION ? 50ML YELLOW FLUID ?? 30ML PROCESSED ?1 CYTOSPIN Signed ____(signature on file)____ Anjel De La Torre M.D. 04/13/11 ?? By the signature above, the attending physician certifies that he/she has personally conducted a gross and/or microscopic examination of the described specimens and rendered or confirmed the above diagnosis. Test Performed by [facility], [address] [place] [address] Plumbing Designer: Namrata Childs MD PHD ----- ------- Leland Boykin MD PATHOLOGY ORDERABLES [facility] documented in this encounter Visit Diagnoses Not on filedocumented in this encounter Care Teams Model Builder Relationship Specialty Start Date End Date Agustin Ramires MD [address] [address] PCP - General 02/08/11 05/15/11 Kayleigh Peña PA [address] [facility] [address] [place] [address] PCP - General 05/16/11 08/19/11 Agustin Ramires MD [address] [address] PCP - General 08/20/11 02/23/13 Lizbet Zhang FNP [address] [place], [place] [id number] PCP - General 02/24/13 03/13/20 documented as of this encounter
--- OUTSIDE RECORDS SUMMARY | 2023-12-02 18:38 | XMS_ITS | Encounter Summary ---
Author Organization [facility] Address [address] [place] [address] Care Team Providers Care Senior Online Marketing Manager Name Role Phone LeathaLizbet martines Zoey SOLAR ELECTRIC PRACTITIONER Primary Care Provider [phone] [phone] Encounter Details Date Type Department Care Team (Late st Contact Info) Description 12/15/2015 Results Only [facility] [phone] Sandra Ricci MD [address] [place] [phone] Social History Tobacco Use Types Packs/Day Years [...] Procedure Name Priority Date/Time Associated Diagnosis Comments CYTOPATHOLOGY Routine 12/15/2015 0:00 EDT documented in this encounter Results * CYTOPATHOLOGY (12/15/2015 0:00 EDT) Pathology Report: CYTOPATHOLOGY REPORT Reports generated via electronic interface contain original data; however they are lacking the format of the original report. Caution should be taken when reading/interpret ing unformatted reports. Name: ? MILKA MENDIETA ? Accession #: ? [id number] : ? 1940 (Age: 75) ??F ?Collect Date: ? 12/15/2015 Location: ? [facility] ? Receive Date: ? 12/16/2015 Provider: ? SANDRA RICCI MD Copy to: ?KRISTEN LOPEZ C[facility]S SAWYER ? CYTOLOGIC DIAGNOSIS: URINE, CATHETERIZATION, CYTOLOGIC EVALUATION: - No malignant cells present. - Degenerated epithelial cells, acute inflammation, and debris. Document reviewed and electronically signed by: ? DONNA STANTON MD Report Date: ??12/16/2015 14:37 By the signature above, the attending physician certifies that he/she has personally conducted a gross and/or microscopic examination of the described specimens and rendered or confirmed the above diagnosis. Specimen Type: ? Urine, Catheterized Clinical History: ? Bladder cancer; clinical diagnosis code: ??C67.9. ? Gross Description: ? 50 ccs of clear yellow fluid (EtOH added) were received and processed by selective cellular enhancement technique. ? End of Report [facility] 12/15/2015 12/16/2015 7:5 5 EDT Sandra Ricci MD PATHOLOGY ORDERABLE S [facility] [address] [place] [id number] documented in this encounter Visit Diagnoses Not on filedocumented in this encounter Care Teams Senior Online Marketing Manager Relationship Specialty Start Date End Date Lizbet Zhang FNP [address] [place] [address] PCP - General 02/24/13 03/13/20 documented as of this encounter
--- OUTSIDE RECORDS SUMMARY | 2023-12-02 18:38 | XMS_ITS | Encounter Summary ---
Author Organization [facility] Address [address] [place] [address] Care Team Providers Care Floatlight Powder Mixer Name Role Phone Lizbet Zhang SHARE HOLDER Primary Care Provider [phone] Encounter Details Date Type Department Care Team (Late st Contact Info) Description 10/17/2017 Historical Results Only [facility] Radiology Results [address] [place] [address] Molly Cui, LORETO [address] [place] [address] [place] [address] Social History Tobacco Use Types Packs/Day Years [...] Priority Date/Time Associated Diagnosis Comments CT CHEST W CONTRAST 10/17/2017 1 4:16 EDT COMPLETE BLOOD COUNT WITH DIFFERENTIAL (AUTO) Routine 10/17/2017 10:37 EDT AFP TUMOR MARKER Routine 10/17/2017 10:3 7 EDT PROTIME Routine 10/17/2017 10:36 EDT PROTIME Routine 10/17/2017 10:36 EDT COMPREHENSIVE METABOLIC PANEL (CMP) Routine 10/17/2017 10:36 EDT documented in this encounter Results * CT CHEST W CONTRAST (10/17/2017 14:16 EDT) Anatomical Region Laterality Modality Chest Other 10/17/2017 14:1 6 EDT Narrative 10/17/2017 14:19 EDT ? EXAM: CAT SCAN/CHEST WITH CONTRAST ?EX. D/ (1141) ? CLINICAL INFORMATION: ? R91.1 INCIDENTAL NOTE OF LUNG NODULE NOTED ON ? MRI 09/21/17 @ [facility] [place]. NO HX OF SMOKING ? CHEST WITH CONTRAST ??10/17/2017 11:41 AM ? Clinical History/Comments: ? R91.1 INCIDENTAL NOTE OF LUNG NODULE NOTED ON, MRI 09/21/17 @ [facility] [place]. NO ? HX OF SMOKING ? Technique: ? Contiguous axial CT images of the chest were acquired after the ? administration of intravenous contrast. Multiplanar reformations were ? created. ? Comparison: ? Outside MRI dated 09/20/2017 ? Findings: ? Lower neck: No abnormalities. ? Chest wall soft tissues: No abnormalities. ? Mediastinum and paul: No enlarged mediastinal or hilar lymph nodes. ? The esophagus appears normal. ? Heart and mediastinal vasculature: ??No abnormalities. ? Large airways: ??No abnormalities. ? Lungs: ??There is a 1.4 x 2.1 cm slightly lobulated nodule at the ? medial aspect of the left lung base. A 5 mm triangular nodule is ? present in the middle lobe near the surface of the minor fissure, ? likely reflecting a subpleural lymph node. 2 small calcified ? granulomas are present in the left lower lobe. ? Pleura: No pleural effusion or pneumothorax. ? Upper abdomen (limited to upper abdomen, not optimized for abdominal ? imaging): The liver demonstrates a slightly nodular contour in the ? spleen is mildly enlarged. ? Bones: ??There is degenerative spondylosis of the thoracic spine. No ? acute osseous abnormality is identified. ? Impression: ? 1. ??1.4 x 2.1 cm lobulated pulmonary nodule. This may reflect ? hamartoma, but malignancy is not excluded. Recommend PET/CT for ? PAGE 1 ? Signed Report ? (CONTINUED) ? further assessment. ? 2. ??Findings of cirrhosis with splenomegaly ? REPORT SIGNED IN OTHER VENDOR SYSTEM 10/17/2017 ?Reported By: Carl Ortega MD ? CC: ? Transcribed Date/Time: 10/17/2017 (1419) ? Whipper: ? Printed Date/Time: 09/26/2018 (3280) ? PAGE 2 ? Signed Report ? Procedure Note Carl Ortega MD - 02/12/2019 EXAM: CAT SCAN/CHEST WITH CONTRAST EX. D/ (1141) CLINICAL INFORMATION: R91.1 INCIDENTAL NOTE OF LUNG NODULE NOTED ON MRI 09/21/17 @ [facility] [place]. NO HX OF SMOKING CHEST WITH CONTRAST 10/17/2017 11:41 AM Clinical History/Comments: R91.1 INCIDENTAL NOTE OF LUNG NODULE NOTED ON, MRI 09/21/17 @ [facility] [place].NO HX OF SMOKING Technique: Contiguous axial CT images of the chest were acquired after the administration of intravenous contrast. Multiplanar reformationswere created. Comparison: Outside MRI dated 09/20/2017 Findings: Lower neck: No abnormalities. Chest wall soft tissues: No abnormalities. Mediastinum and paul: No enlarged mediastinal or hilar lymph nodes. The esophagus appears normal. Heart and mediastinal vasculature: No abnormalities. Large airways: No abnormalities. Lungs: There is a 1.4 x 2.1 cm slightly lobulated nodule at the medial aspect of the left lung base. A 5 mm triangular nodule is present in the middle lobe near the surface of the minor fissure, likely reflecting a subpleural lymph node. 2 small calcified granulomas are present in the left lower lobe. Pleura: No pleural effusion or pneumothorax. Upper abdomen (limited to upper abdomen, not optimized forabdominal imaging): The liver demonstrates a slightly nodular contour in the spleen is mildly enlarged. Bones: There is degenerative spondylosis of the thoracic spine. No acute osseous abnormality is identified. Impression: 1. 1.4 x 2.1 cm lobulated pulmonary nodule. This may reflect hamartoma, but malignancy is not excluded. Recommend PET/CT for PAGE 1 Signed Report (CONTINUED) further assessment. 2. Findings of cirrhosis with splenomegaly REPORT SIGNED IN OTHER VENDOR SYSTEM 10/17/2017 Reported By: Carl Ortega MD CC: Transcribed Date/Time: 10/17/2017 (1728) Whipper: Printed Date/Time: 09/26/2018 (9316) PAGE 2 Signed Report Molly Cui [facility] CT ORDERABLES * (ABNORMAL) COMPLETE BLOOD COUNT WITH DIFFERENTIAL (AUTO) (10/17/2017 10:37 EDT) ABSOLUTE NEUTROPHIL COUN - [facility] 3.14 1.7 - 7.0 10e3/ul 10/17/2017 11:09 [facility] BASO # - [facility] 0.02 0.0 - 0.3 10e3/uL 10/17/2017 11:09 [facility] BASO % - [facility] 0 0 - 2 % 10/17/2017 11:09 [facility] EOS # - [facility] 0.11 0.05 - 0.5 10e3/uL 10/17/2017 11:09 [facility] EOS % - [facility] 2 0 - 5 % 10/17/2017 11:09 [facility] GRAN % - [facility] 54 40 - 80 % 10/17/2017 11:09 [facility] HEMATOCRIT - [facility] 41.7 34.0 - 47.0 % 10/17/2017 11:09 [facility] HEMOGLOBIN - [facility] 14.3 11.2 - 15.7 g/dl 10/17/2017 11:09 [facility] IG# - [facility] 0.02 0 - 0.07 e3/uL 10/17/2017 11:09 [facility] IG% - [facility] 0.3 0 - 0.9 % 10/17/2017 11:09 [facility] LYMPH # - [facility] 2.14 0.9 - 2.9 e3/uL 10/17/2017 11:09 [facility] LYMPH% - [facility] 37 20 - 40 % 10/17/2017 11:09 [facility] MEAN CORPUSCULAR HGB - [facility] 31.4 26 - 34 pg 10/17/2017 11:09 [facility] MEAN CORPUSCULAR HGB CONC - [facility] 34.3 31 - 36 g/dL 10/17/2017 11:09 [facility] MEAN CELL VOLUME - [facility] 91.4 77 - 100 fl 10/17/2017 11:09 [facility] MONO # - [facility] 0.41 0.3 - 0.9 10e3/uL 10/17/2017 11:09 EDT [facility] MONO% - [facility] 7 0 - 12 % 10/17/2017 11:09 EDT [facility] PLATELET COUNT 118(L) 150 - 400 10e3/ul 10/17/2017 11:56 EDT [facility] RED BLOOD COUNT - [facility] 4.56 3.8 - 5.2 10e6/ul 10/17/2017 11:09 EDT [facility] RED CELL DISTRI WIDTH - [facility] 12.5 11.8 - 15.6 % 10/17/2017 11:09 EDT [facility] WHITE BLOOD COUNT - [facility] 5.8 3.5 - 10.5 10e3/ul 10/17/2017 11:09 EDT [facility] 10/17/2017 10:3 7 EDT 10/17/2017 10:37 EDT [facility] - 10/17/2017 11:56 EDT Does PT Have a Latex Allergy? YES Molly Cui ENVIRONMENTAL SERVICES TECHNICIAN HEMATOLOGY & PF4 O RDERABLES [facility] * AFP TUMOR MARKER (10/17/2017 10:37 EDT) ALPHA-FETOPROTEIN TUMOR MARKER - [facility] 3.0 <8.1 ng/mL 10/18/2017 14:30 EDT [facility] Comment: AFP tumor marker cannot be interpreted in females. ?? Serum AFP concentration should not be interpreted as absolute evidence for the presence or absence of malignant disease. ?? Assayed utilizing Siemens chemiluminescent technology. Values obtained by using different assay methods cannot be used interchangeably. Test Performed by: THE [address] [address] 10/17/2017 10:3 7 EDT 10/17/2017 10:37 EDT Narrative [facility] - 10/18/2017 14:30 EDT Instructions? FAX ATTENTION: VARSHA LAZO NUMBER: [phone] TEST TO BE FAXED?: ALL Does PT Have a Latex Allergy? YES Results faxed on 10/18/17 [phone] by EMMETT Molly Cui APRN CHEMISTRY & BLOOD GAS ORDERABLES [facility] * (ABNORMAL) COMPREHENSIVE METABOLIC PANEL (CMP) (10/17/2017 10:36 EDT) Albumin % 4.3 3.4 - 4.9 g/dL 10/17/2017 11:07 [facility] ALKALINE PHOSPHATASE - [facility] 79 38 - 126 U/L 10/17/2017 11:07 [facility] BILIRUBIN TOTAL 0.6 0.2 - 1.3 mg/dL 10/17/2017 11:07 [facility] BUN - [facility] 15 10 - 26 mg/dL 10/17/2017 11:07 [facility] CALCIUM - [facility] 10.5 8.5 - 10.5 mg/dL 10/17/2017 11:07 [facility] Chloride 99 96 - 110 mmol/L 10/17/2017 11:07 [facility] CO2 Total 27 22 - 32 mEq/L 10/17/2017 11:07 [facility] CREATININE 0.58 0.52 - 1.04 mg/dL 10/17/2017 11:07 [facility] eGFR >60 10/17/2017 11:07 [facility] Comment: Chronic renal impairment is defined as GFR <60 Multiply result by 1.210 for patients. eGFR calculated using the IDMS-traceable MDRD Study Equation. ??(effective 02/08/2014) Anion Gap 14 0 - 18 10/17/2017 11:07 [facility] GLUCOSE - [facility] 184(H) 70 - 100 mg/dL 10/17/2017 11:07 [facility] Potassium 4.1 3.5 - 5.0 mEq/L 10/17/2017 11:07 [facility] Sodium 140 136 - 145 mEq/L 10/17/2017 11:07 [facility] TOTAL PROTEIN - [facility] 7.4 6.2 - 8.2 gm/dL 10/17/2017 11:07 EDT [facility] SGOT/AST - [facility] 32 14 - 36 U/L 10/17/2017 11:07 EDT [facility] SGPT/ALT - [facility] 51 9 - 52 U/L 8 11:07 EDT [facility] 10/17/2017 10:3 6 EDT 10/17/2017 10:36 EDT [facility] - 10/17/2017 11:07 EDT Does PT Have a Latex Allergy? YES Molly Cui APRN CHEMISTRY & BLOOD GAS ORDERABLES Performing Organization Address City/[facility]/ZIP Co de Phone Number [facility] * PROTIME (10/17/2017 10:36 EDT) PROTHROMBIN TIME - [facility] 10.7 9.5 - 13.4 SECONDS 10/17/2017 11:09 EDT [facility] 10/17/2017 10:3 6 EDT 10/17/2017 10:36 EDT [facility] - 10/03/2018 8:42 EDT Does PT Have a Latex Allergy? YES Molly Cui APRN HEMATOLOGY & PF4 O RDERABLES [facility] * PROTIME (10/17/2017 10:36 EDT) INR - [facility] 1.0 0.9 - 1.2 10/17/2017 11:09 EDT [facility] Comment: Low intensity INR: 2.0-3.0 High intensity INR: Consult Coag Dept. 10/17/2017 10:3 6 EDT 10/17/2017 10:36 EDT [facility] - 10/03/2018 8:42 EDT Does PT Have a Latex Allergy? YES Molly uCi ENVIRONMENTAL SERVICES TECHNICIAN HEMATOLOGY & PF4 O RDERABLES [facility] documented in this encounter Visit Diagnoses Not on filedocumented in this encounter Care Teams Floatlight Powder Mixer Relationship Specialty Start Date End Date Lizbet Zhang FNP [address] [place] [address] PCP - General 02/24/13 03/13/20 documented as of this encounter
--- OUTSIDE RECORDS SUMMARY | 2023-12-02 18:38 | XMS_ITS | Encounter Summary ---
Author Organization [facility] Address [address] [place] [address] Care Team Providers Care Livestock Showman Name Role Phone Kayleigh Peña Primary Care Provider [phone] Reason for Visit * Reason Comments Other incomplete empyting Encounter Details Date Type Department Care Team (Latest Contact Info) Description 05/17/2011 11:00 EST Office Visit [facility] Pelvic Medicine and Reconstructive Surgery - Medical Office [facility] [address] [place] [address] Tim Molina MD [address] [place] [id number] Female bladder prolapse (Primary Dx); Rectocele; [...] Reading Time Taken Comments Blood Pressure 126/70 05/17/2011 1056 EST Pulse 73 05/17/2011 1056 EST Temperature - - Respiratory Rate - - Oxygen Saturation - - Inhaled Oxygen Concentration - - Weight 68 kg (150 lb) 05/17/2011 1056 EST Height 156.2 cm (5' 1.5) 05/17/2011 1056 EST Body Mass Index 27.88 05/17/2011 1056 EST documented in this encounter Progress Notes * Tim Molina MD - 05/21/2011 0709 EST [facility] [place] [address] Telephone Toll-Free PROGRESS/FOLLOWUP NOTE - 05/17/2011 HISTORY OF PRESENT ILLNESS: Milka Corbett is seen in urologic consultation today at the request of Dr Leland Boykin for a second opinion regarding the patient's bothersome stress urinary incontinence. This is a 70-year-old female who has had worsening stress urinary incontinence for the last 5 to 6 years. In the last year, it has become substantially worse and it is quite bothersome to the patient and causes her to limit her activities. She leaks with coughing, sneezing, lifting, laughing or any exercise. She also has leakage on the way to the bathroom at night which she finds quite bothersome. The patient denies urge symptoms during the day but voids fairly frequently, approximately 10 times. She has 2 episodes of nocturia per night. She denies any difficulty initiating a stream and shedoes need to strain to urinate, but she is unsure whether or not she empties her bladder to completion. Her urogynecologic history is notable for 4 pregnancies and 4 vaginal deliveries. She has undergone a hysterectomy with bilateral salpingo-oophorectomy back in 1986 for the diagnosis of endometriosis. She generally does not have much in the way of pelvic pain except for an occasional aching. She denies symptoms or signs of pelvic prolapse though she tells me Dr Boykin has found her to have a cystocele on examination. PAST MEDICAL HISTORY: Otherwise notable for restless leg syndrome, migraine headaches, noninsulin-dependent diabetes mellitus, gastroesophageal reflux disease, and oral and vaginal candidiasis in thepast, bladder cancer. PAST SURGICAL HISTORY: An appendectomy in 1957, bilateral tubal ligation in the , hysterectomyin 1986 with bilateral salpingo-oophorectomy and a cholecystectomy 1997 (laparoscopic). FAMILY HISTORY: Noncontributory and is documented in the scanned paper documents. SOCIAL HISTORY: She is a nonsmoker. She denies drug use or alcohol abuse. MEDICATIONS: Listed in the electronic medical record and include metformin, Fiorinal, nystatin as needed, triamcinolone topical ointment as needed, fluconazole orally as needed, ciprofloxin (currently not taking though she has used this in the past for urinary tract infection), Colace, multivitamins, amitriptyline 100 mg at bedtime for migraine headaches, Protonix, Klonopin, Neurontin, hydrochlorothiazide/lisinopril combination. ALLERGIES: The patient has no known drug allergies. REVIEW OF SYSTEMS: A 15-point review of systems is otherwise noncontributory and is documented in the scanned paper document. OBJECTIVE: She is overweight, standing 5 feet 1-1/2 inches and weighing 150 pounds. General: She isawake, alert, in no apparent distress. HEENT exam shows moist mucous membranes. Neck is supple without JVD. Skin is without lesion. Lungs are clear. Heart is regular. Abdomen is soft, nontender, nondistended without guarding or rebound but does show many surgical scars. There is a midline lower abdominal scar from her hysterectomy, a left Pfannenstiel incision from her bilateral tubal ligation, aright-sided paramedian incision for an appendectomy and cholecystectomy incisions from her laparoscopic procedure. The genital examination showed normal external genitalia. There is mild vaginal atrophy. DIAGNOSTIC DATA: A postvoid residual as measured by catheter is 60 mL with straining. There is urethral hypermobility to 45 degrees with straining. There is a grade 2 central defect cystocele and a grade 2 rectocele. The uterus is surgically absent. ASSESSMENT AND PLAN: In summary, we have a 70-year-old female, multigravida, with diabetes, status post hysterectomy with both pelvic organ prolapse and symptomatic stress incontinence. I am recommending urodynamic evaluation so I can get a sense on her leak point pressures as well as her emptying function. Based upon the findings, I can make further recommendations, which will probably include some form of sling procedure with concomitant prolapse repair. I explained this to the patient, and she would like to proceed with the evaluation as mentioned. Of note, the patient does have a history of bladder cancer and is status post previous bladder tumor resection by Dr Boykin and has also undergone BCG therapy for tumor recurrence, but this was completed in 2008 and she has had no recurrences since that time. She had a cystoscopy by Dr Boykin in April which was negative for any evidence of recurrence. Electronically Signed by Tim Molina MD 07/27/2011 13:07 Tim Molina MD - Tim Molina MD - [facility] Job ID: SM Doc ID: [id number] Ext Doc ID: [id number] cc: TOPHER Mackey MD * Tim Molina MD - 05/18/2011 1339 EST Subjective: Patient ID: Milka Corbett is an 70 y.o. female. Chief Complaint Patient presents with ??? Other incomplete empyting HPI Patient Active Problem List Diagnoses ??? Hypertension ??? DM (Diabetes Mellitus) ??? PPD Positive ??? IBS (Irritable Bowel Syndrome) ??? Hyperlipidemia ??? Rosacea ??? RLS (Restless Legs Syndrome) ??? Migraine ??? Rectocele ??? Mixed incontinence urge and stress Past Medical History Diagnosis Date ??? Gastritis and duodenitis history of due to NSAIDS ??? Diabetes mellitus ??? Cancer ??? Hearing loss ??? Rectocele 05/18/2011 ??? Mixed incontinence urge and stress 05/18/2011 Past Surgical History Procedure Date ??? Appendectomy ??? Cholecystectomy lap, Dr. Tran ??? Ru and bso 88 ??? Intracapsular cataract extraction bilateral ??? Tubal ligation bilateral ??? Skin biopsy benign nevus bx Right buttock; Dr. Villegas ??? Tubal ligation ??? Cystoscopy 09/19/2010, 04/17/2011 no evidence trans cell ca Family History Problem Relation Age of Onset ??? Thyroid Disease Mother ??? Cancer Brother bladder prostate Social History Substance Use Topics ??? Smoking status: Never Smoker ??? Smokeless tobacco: Never Used ??? Alcohol Use: No Current Outpatient Prescriptions on File Prior to Visit Medication Sig Dispense Refill ??? omeprazole (PRILOSEC) 20 mg capsule Take 40 mg by mouth daily as needed. ??? [place]-3 Fatty Acids-Vitamin E (FISH OIL) 1,000 mg Cap Take by mouth. ??? metformin (GLUCOPHAGE) 1,000 mg tablet Take 1,000 mg by mouth 2 times daily with meals. ??? amitriptyline (ELAVIL) 100 mg tablet Take 1 Tab by mouth at bedtime. 90 Tab 4 ??? gabapentin (NEURONTIN) 300 mg capsule Take 1 Cap by mouth 3 times daily. 270 Cap 4 ??? lisinopril (PRINIVIL, ZESTRIL) 10 mg tablet Take 1 Tab by mouth daily. 90 Tab 4 ??? clonazepam (KLONOPIN) 0.5 mg tablet Take 1 Tab by mouth at bedtime. 90 Tab 4 ??? meclizine (ANTIVERT) 25 mg tablet Take 1 Tab by mouth 4 times daily as needed. verigo 120 Tab 4 ??? BUTALBITAL/ASPIRIN/CAFFEINE (FIORINAL ORAL) Take by mouth 2 times daily as needed. ??? MULTIVITAMINS (MULTIVITAMIN ORAL) Take 1 Tab by mouth daily before breakfast. ??? docusate sodium (COLACE) 100 mg capsule Take 100 mg by mouth daily as needed. Allergies Allergen Reactions ??? Dale Inhibitors Cough ??? Atenolol Cough ??? Bactrim (Sulfamethoxazole-Trimethoprim) Rash ??? Codeine Itching and Other (See Comments) paranoia ??? Erythromycin Other (See Comments) GI Upset ROS - See HPI Objective: BP 126/70 Pulse 73 Ht 156.2 cm (61.5) Wt 68.04 kg (150 lb) BMI 27.88 kg/m2 Physical Exam Assessment: Plan: Milka was seen today for other. Diagnoses and associated orders for this visit: Female bladder prolapse - POCT Urine Dipstick; Standing - POCT Urine Dipstick Rectocele Mixed incontinence urge and stress Tim Molina MD * Tim Molina MD - 05/18/2011 5929 EST Dictated. Past Medical history, past surgical history, social history, medications, and drug allergies all reviewed in EMR ([employer]) and updated where appropriate. documented in this encounter Plan of Treatment Not on file documented as of this encounter Procedures Procedure Name Priority Date/Time Associated Diagnosis Comments POCT URINE DIPSTICK, CLINITEK Routine 05/17/2011 11:35 EST Female bladder prolapse documented in this encounter Results * POCT URINE DIPSTICK (05/17/2011 11:35 EST) Color YELLOW [facility] Clarity, UA Clear [facility] Glucose Neg Neg [facility] Bilirubin Neg Neg [facility] Ketones Neg Neg [facility] Specific [place] 1.010 1.001 - 1.035 [facility] Blood Neg Neg [facility] pH 7.5 4.6 - 8.0 [facility] Protein Neg Neg [facility] Urobilinogen 0.2 0.2 - 1.0 E.U./dl [facility] Nitrite Neg Neg [facility] Leuk Esterase Neg Neg [facility] director of video analytics ID [id number] [facility] Comment:Test performed at [facility] Urine specimen (specimen) 05/17/2011 11:35 EST 05/17/2011 11:44 EST Tim Molina MD POINT OF CARE TEST ORDERABLES Performing Organization Address City/State/[facility] Co de Phone Number [facility] [address] [place] [address] documented in this encounter Visit Diagnoses Diagnosis Female bladder prolapse- Primary Cystocele, midline Rectocele Mixed incontinence urge and stress Mixed incontinence urge and stress (male)(female) documented in this encounter Care Teams Livestock Showman Relationship Specialty Start Date End Date Kayleigh Peña PA [address] [facility] [address] [place] [address] PCP - General 05/16/11 08/19/11 documented as of this encounter
--- OUTSIDE RECORDS SUMMARY | 2023-12-02 18:38 | XMS_ITS | Encounter Summary ---
Author Organization [facility] Address [address] [place] [address] Care Team Providers Care Tool Grinder Name Role Phone Agustin Ramires MD Primary Care Provider [phone] Unknown, Provider Primary Care Provider [phone] Agustin Ramires MD Primary Care Provider [phone] Kayleigh Peña Primary Care Provider [phone] Agustin Ramires MD Primary Care Provider [phone] Lizbet Zhang PLASTIC PRESS MOLDER Primary Care Provider [phone] Encounter Details Date Type Department Care Team (Late st Contact Info) Description 05/15/2010 Historical Results Only [facility] [address] [place], [place] [id number] Jens Deleon MD [facility] [address] [place] [address] Social History Tobacco Use Types Packs/Day Years [...] Date/Time Associated Diagnosis Comments SURGICAL PATHOLOGY Routine 05/15/2010 documented in this encounter Results * SURGICAL PATHOLOGY (05/15/2010) 05/15/2010 05/15/2010 12: [address] [facility] - 05/16/2010 10:58 EST ----- ------- Name: MILKA MENDIETA ?: 42 ?Age/Sex: 78/F ?Unit#: [id number] ? Loc: END ? Status: DEP CLI ?? Reg Date: 05/15/10 ? Pt.Phone Number: ? ----- ------- Specimen: [id number] ?STATUS: SOUT ?Spec Date:05/15/10 ? Physician Copies: ?Jens Deleon MD ? Tissues: A ?? Gastrointestinal Tract (PROXIMAL ASCENDING COLON) ?Kayleigh Peña CPT: 06529 ?? Units: ??1 ?FINAL DIAGNOSIS ? Proximal ascending colon, polyp, biopsy; ? -Tubular adenoma. ? GROSS DESCRIPTION ? Received in Bou[place]'s and labeled proximal ascending colon is a mucosal tissue ? fragment 0.1 cm in greatest dimensions, e.s. ?? BT ?? PREOP DX/CLINICAL HISTORY ?Irritable bowel syndrome, constipation,diarrhea. Signed ____(signature on file)____ Anjel De La Torre M.D. 05/16/10 ?? By the signature above, the attending physician certifies that he/she has personally conducted a gross and/or microscopic examination of the described specimens and rendered or confirmed the above diagnosis. Test Performed by [facility], [address] [place] [address] Insecticide Expert: Namrata Childs MD PHD ----- ------- Jens Deleon MD PATHOLOGY ORDERABLES Performing Organization Address City/State/[facility] Co de Phone Number [facility] documented in this encounter Visit Diagnoses Not on filedocumented in this encounter Care Teams Tool Grinder Relationship Specialty Start Date End Date Agustin Ramires MD [address] [id number] PCP - General 07/11/09 05/16/10 Unknown, MD [place] PCP - General 05/17/10 02/07/11 Agustin Ramires MD [address] ,[facility] [address] [place] [phone] PCP - General 02/08/11 05/15/11 Kayleigh Peña PA [address] [place] [address] PCP - General 05/16/11 08/19/11 Agustin Ramires MD [address] ,[facility] [address] [place] [phone] PCP - General 08/20/11 02/23/13 Lizbet Zhang, PLASTIC PRESS MOLDER [address] [place], [place] [address] PCP - General 02/24/13 03/13/20 documented as of this encounter
--- OUTSIDE RECORDS SUMMARY | 2023-12-02 18:38 | XMS_ITS | Encounter Summary ---
Author Organization [facility] Address [address] [place] [address] Care Team Providers Care Power Engineer Name Role Phone Lizbet Zhang Primary Care Provider [phone] Encounter Details Date Type Department Care Team (Late st Contact Info) Description 01/19/2014 Orders Only [facility] Infectious Disease - [address] [id number] Pino Oleary, TRISHA Social History Tobacco Use Types Packs/Day Years [...] on filedocumented in this encounter Care Teams Power Engineer Relationship Specialty Start Date End Date Lizbet Zhang FNP [address] [place] [address] PCP - General 02/24/13 03/13/20 documented as of this encounter
--- OUTSIDE RECORDS SUMMARY | 2023-12-02 18:38 | XMS_ITS | Encounter Summary ---
Author Organization [facility] Address [address] [place] [address] Care Team Providers Care Fire Alarm Dispatcher Name Role Phone Avel Rivera MD Primary Care Provider Unav ailable Reason for Visit * Reason Onset Date Comments Medications Refill 05/04/2009 robert, please call milka that this has been ordered Encounter Details Date Type Department Care Team (Late st Contact Info) Description 05/04/[address] [address] Avel Rivera MD Medications Refill (robert, please call milka that this has been ordered) Social History Tobacco Use Types Packs/Day Years [...] by mouth at bedtime. 30 Tab 5 05/04/2009 05/18/2009 gabapentin (NEURONTIN) 100 mg capsule Take 2 Caps by mouth 4 times daily. 240 Cap 5 05/04/2009 06/06/2009 documented in this encounter Plan of Treatment Not on file documented as of this encounter Visit Diagnoses Not on filedocumented in this encounter Discontinued Medications Medication Sig Discontinue Reason Start Date End Da te gabapentin (NEURONTIN) 100 mg capsule Take 100 mg by mouth 3 times daily. Reorder 05/04/2009 amitriptyline (ELAVIL) 100 mg tablet Take 100 mg by mouth at bedtime. Reorder 05/04/2009 documented as of this encounter Care Teams Fire Alarm Dispatcher Relationship Specialty Start Date End Date Avel Rivera MD PCP - General 09/03/08 07/10/09 documented as of this encounter
--- OUTSIDE RECORDS SUMMARY | 2023-12-02 18:38 | XMS_ITS | Encounter Summary ---
Author Organization [facility] Address [address] [place] [address] Care Team Providers Care Rolloff Truck Driver Name Role Phone Lizbet Zhang COLLECTION SYSTEMS ADMINISTRATOR Primary Care Provider [phone] Encounter Details Date Type Department Care Team (Latest Contact Info) Description 10/17/2017 12:36 EDT - 10/17/2017 23:59 EDT Hospital Encounter [address] [address] Unknown, Provider, Discharge Disposition: Home or Self [...] 1 Tab by mouth daily before breakfast. [place]-3 Fatty Acids-Vitamin E (FISH OIL) 1,000 mg [...] Code Departure Means Destination Home or Self [facility]sp documented in this encounter Plan of Treatment Not on file documented as of this encounter Visit Diagnoses Not on filedocumented in this encounter Care Teams Rolloff Truck Driver Relationship Specialty Start Date End Date Lizbet Zhang [place] [address] PCP - General 02/24/13 03/13/20 documented as of this encounter
--- OUTSIDE RECORDS SUMMARY | 2023-12-02 18:39 | XMS_ITS ---
Author Organization Unknown Address [address] [place] [phone] Phone Care Team Providers Care Service Crew Leader Name Role Phone KATHIE ARTEAGA MD Attending Unavailable SALLIE DENISE MD ER Unavailable JOHN PETERSON Primary Unavailable Results TSH THYROID STIMULATING HORM ONE - Collect Date/Time: 10/03/2020 14:03 [facility] ID: [id number] [address] [place] [address], [address] LOINC: 3014-8 Test Value Unit Reference Range Code Code System Flag TSH 1.863 uIU/mL L=0.360 H=3.740 3014-8 LOINC TROPONIN-I ADM. - Collect Da te/Time: 10/03/2020 14:03 [facility] ID: [id number] [address] [place] [address], [address] LOINC: 40826-5 Test Value Unit Reference Range Code Code System Flag TROPONIN-I < 0.017 ng/mL L=0.000 H=0.060 39742-3 LOINC COMPREHENSIVE METABOLIC PANE L (CMP) - Collect Date/Time: 10/03/2020 14:03 [facility] ID: [id number] [address] [place] [address], [address] LOINC: 60019-6 Test Value Unit Reference Range Code Code System Flag GLUCOSE 115 mg/dL L=70 H=116 2345-7 LOINC BUN 20 mg/dL L=6 H=25 3094-0 LOINC CREATININE 0.74 mg/dL L=0.51 H=0.95 2160-0 LOINC SODIUM SERUM 139 mmol/L L=136 H=145 2951-2 LOINC POTASSIUM SERUM 4.4 mmol/L L=3.4 H=5.2 2823-3 LOINC CHLORIDE SERUM 102 mmol/L L=96 H=110 2075-0 LOINC CARBON DIOXIDE (CO2) 28 mmol/L L=22 H=34 2028-9 LOINC ANION GAP 8.8 mmol/L 43875-6 LOINC CALCIUM SERUM 9.6 mg/dL L=8.2 H=10.2 72296-3 LOINC BILIRUBIN TOTAL 0.6 mg/dL L=0.0 H=1.3 1975-2 LOINC ALK. PHOS. 87 U/L L=46 H=116 6768-6 LOINC SGOT (AST) 22 U/L L=15 H=37 1920-8 LOINC SGPT (ALT) 33 U/L L=12 H=78 1742-6 LOINC TOTAL PROTEIN 7.3 gm/dL L=6.0 H=8.0 2885-2 LOINC ALBUMIN 3.9 gm/dL L=3.4 H=5.0 1751-7 LOINC AGE 80 years eGFR (non-Afr.Amer.) 76 mL/min 91698-2 LOINC eGFR (Afr-[place]) 92 mL/min 56453-5 LOINC CBC W/ DIFFERENTIAL - Collec t Date/Time: 10/03/2020 14:03 [facility] ID: [id number] [address] [place], [place], [address] LOINC: 09691-5 Test Value Unit Reference Range Code Code System Flag WBC 6.03 th/cmm L=5.00 H=10.00 NEUT % 68.3 % L=40.0 H=80.0 LYMPH % 22.1 % L=10.0 H=50.0 MONO % 6.8 % L=2.0 H=12.0 EOS % 2.2 % L=0.0 H=8.0 BASO % 0.3 % L=0.0 H=3.0 IG % 0.3 % L=0.0 H=1.1 NRBC % 0.0 % L=0.0 H=0.0 NEUT abs count 4.1 th/cmm L=1.6 H=8.4 LYMPH abs count 1.3 th/cmm L=1.5 H=4.0 L MONO abs count 0.4 th/cmm L=0.2 H=1.0 EOS abs count 0.1 th/cmm L=0.0 H=0.5 BASO abs count 0.0 th/cmm L=0.0 H=0.2 IG abs count 0.0 th/cmm L=0.0 H=0.1 NRBC abs count 0.0 mil/cmm L=0.0 H=0.0 RBC 4.12 mil/cmm L=3.90 H=5.40 HEMOGLOBIN 13.0 gm/dL L=12.0 H=16.0 HEMATOCRIT 39 % L=37 H=47 MCV 94 fL L=82 H=92 H MCH 31.6 pg L=27.0 H=31.0 H MCHC 33.7 % L=32.0 H=36.0 RDW-SD 44.0 fL L=39.0 H=49.0 PLATELET COUNT 87 th/cmm L=150 H=[address] HEAD/CERVICAL SPINE W/O C ONTRAST - Completed: 10/03/2020 18:06 LOINC: Radiation optimization: All CT scans at this facility use at least one of these dose optimization techniques: automated exposure control; mA and/or kV adjustment per patient size (includes targeted exams where dose is matched to clinical indication); or iterative reconstruction. HEAD CT: Noncontrast cranial CT was performed. There is moderate generalized cerebral atrophy and there are patchy areas of decreased attenuation in periventricular white matter consistent with microvascular ischemic change. There is no evidence of acute intracranial hemorrhage, mass effect or midline shift. The orbital and temporal bone structures appear intact. The visualized mastoid air cells and paranasal sinuses are clear. CONCLUSION:No evidence of acute intracranial process. CERVICAL SPINE CT: CT examination of the cervical spine was performed without contrast administration. The visualized lung apices are clear. Tracheolaryngeal structures appear intact. No cervical mass or adenopathy. There are degenerative changes of the cervical spine with multilevel disc space narrowing, most marked at C4-5 and C5-6 consistent with disc degeneration. There is no evidence of acute fracture or dislocation. CONCLUSION:No evidence of acute cervical spine injury. Dictated by: JASEN SHER M.D. RADIOLOGIST Transcribed by: MALLY 10/04/2008:39 D Saturday, October 03, 2020 2:42:30 PM [id number] Electronically Reviewed and Signed By: DYLAN SHER M.D. RADIOLOGIST 10/05/20 08:11 Copy for: SALLIE DENISE MD via modem Copy for: KATHIE ARTEAGA MD via modem DISCHARGED Social History Type Status Start Date End Date Code Code Syst em Smoking History Never smoker (Never Smoked) 522164063 SNOMED CT Sex Female Medications Medication Start Date End Date Route Frequency Dose Code Code System Medication Instructions Home Meds Amitriptyline 50MG Oral Tablet 08/20/2019 01/02/2022 ORAL BEDTIME 50 MILLIGRAMS 373456 RxNorm TAKE 50 MILLIGRAMS ORAL BEDTIME Atorvastatin Calcium 20MG Oral Tablet 08/20/2019 Unknown ORAL BEDTIME 20 MILLIGRAMS 564257 RxNorm TAKE 20 MILLIGRAMS ORAL BEDTIME Fish Oil 1000MG Oral Capsule, Liquid Filled 08/20/2019 Unknown ORAL DAILY 3 CAPSULE 976997 RxNorm TAKE 3 CAPSULE ORAL DAILY Gabapentin 800MG Oral Tablet 08/20/2019 Unknown ORAL TWICE A DAY 1 TABLET 997883 RxNorm TAKE 1 TABLET ORAL TWICE A DAY Lisinopril 20MG Oral Tablet 08/20/2019 Unknown ORAL DAILY 20 MILLIGRAMS 587292 RxNorm TAKE 20 MILLIGRAMS ORAL DAILY Loratadine 10MG Oral Tablet 08/20/2019 01/02/2022 ORAL DAILY 10 MILLIGRAMS 634465 RxNorm TAKE 10 MILLIGRAMS ORAL DAILY Multiple Vitamin Formula Oral Tablet 08/20/2019 Unknown ORAL DAILY 1 unit(s) 6309400 RxNorm TAKE 1 EACH ORAL DAILY Pramipexole Dihydrochlorid e 0.125MG Oral Tablet 08/20/2019 09/30/2023 ORAL BEDTIME 2 TABLET 599784 RxNorm TAKE 2 TABLET ORAL BEDTIME Probiotic 250MG Oral Capsule 08/20/2019 01/02/2022 ORAL DAILY 3 TABLET 374541 RxNorm TAKE 3 TABLET ORAL DAILY glipiZIDE 10MG Oral Tablet, Extended Release 08/20/2019 Unknown ORAL DAILY 10 MILLIGRAMS 681378 RxNorm TAKE 10 MILLIGRAMS ORAL DAILY metFORMIN HCl 1000MG Oral Tablet 08/20/2019 Unknown ORAL TWICE A DAY WITH FOOD 1000 MILLIGRAMS 613317 RxNorm TAKE 1000 MILLIGRAMS ORAL TWICE A DAY WITH FOOD Cephalexin 500MG Oral Tablet 08/20/2019 01/02/2022 ORAL THREE TIMES A DAY 1 TABLET 742678 RxNorm TAKE 1 TABLET ORAL THREE TIMES A DAY Keflex 500MG Oral Capsule 01/02/2022 09/30/2023 ORAL THREE TIMES A DAY 1 CAPSULE 486725 RxNorm TAKE 1 CAPSULE ORAL THREE TIMES A DAY Nystatin 117467P/1ML Oral Suspension 01/02/2022 09/30/2023 ORAL FOUR TIMES A DAY 5 mL 629165 RxNorm TAKE 5 mL ORAL FOUR TIMES A DAY Hospital Discharge Instructions Should you have any questions prior to discharge, please contact a member of your healthcare team. If you have left the hospital and have any questions, please contact your primary care physician. Reason For Referral No Data Found Problems Problem Start Date Resolved Date Status Code Code System HTN 08/20/2019 resolved 68373305 SNOMED-CT PERSONAL HISTORY OF BLADDER CA 08/20/2019 resolved 132968709 SNOMED-CT NON-INSULIN DEPENDENT DIABETES MELLITUS 08/20/2019 resolved 33006243 SNOMED-CT 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 005316175 SNOMED-CT CIRRHOSIS - NON-ALCOHOLIC 01/02/2022 resolved 266 083846 SNOMED-CT HIGH CHOLESTEROL 10/01/2023 resolved 17621010 SN OMED-CT Allergies and Adverse Reactions Allergy Substance Reaction Severity Start Date Concern Status Co de Code System CODEINE Active 2670 RxNorm Plan of Treatment NM MPI STR/RST 05/15/2023 CT CHEST W/O CONTRAST 05/18/2022 CT CHEST W/O CONTRAST 03/26/2022 MRI BRAIN W/O CONTRAST 01/25/2021 Encounters Encounter Diagnosis Start Date Code Code Sys tem Other peripheral vertigo, unspecified ear 10/03/2020 SNOMED-CT Personal Care Team Section Performer Name Performer Role Active Date Inactive Da te
--- OUTSIDE RECORDS SUMMARY | 2023-12-02 18:39 | XMS_ITS | Encounter Summary ---
Author Organization [facility] Address [address] [place] [address] Care Team Providers Care Business Development Executive Name Role Phone Avel Rivera MD Primary Care Provider Unav ailable Encounter Details Date Type Department Care Team (Late st Contact Info) Description 03/14/2006 Before PRISM Converted Visit (Maple) [facility] - Maple conversion [address] [place] [address] Tiara Mendez MD [phone] [place] [address] Social History Tobacco Use Types Packs/Day Years Used Date Smoking Tobacco: Never Assessed Sex and Gender Information Value Date Recorded Sex Assigned at Not on file Gender Identity Female 02/14/2022 14:15 EST Sexual Orientation Not on file documented as of this encounter Progress Notes * Tad, Alison Control Systems Developer - 04/25/2009 0014 EST [facility] PROGRESS/FOLLOWUP NOTE - 04/04/2006 Milka is here for a followup of her sinus infection. SUBJECTIVE She took Amoxil 875 mg b.i.d. for a 10-day course and felt that a lot of her symptoms got better, but she has only been off it a day. She has a ???bad smell in my nose,?? as well as persistent postnasal drip, and particularly right maxillary sinus pain. No fever, vomiting or diarrhea. OBJECTIVE On exam, temperature 97.4??, blood pressure is 140/70, pulse is 80. General: She is in no acute distress. Bilateral TMs and oropharynx appear normal. No lymphadenopathy. She does have some left maxillary sinus tenderness. ASSESSMENT Persistent sinus infection. PLAN Doxycycline 100 mg b.i.d. for 10 days. Call if not improving as anticipated. Signed by Tiara Mendez MD 04/14/2006 11:26 Luke Dukes MD Tiara Mendez MD - Tiara Mendez MD P - sa Job ID: [id number] Document ID: [id number] * Alison Mishra Control Systems Developer - 04/24/20091955 EST [facility] PROGRESS/FOLLOWUP NOTE - 03/14/2006 SUBJECTIVE: comes in with a 4 day history of upper respiratory symptoms which have now gone to her chest and she is very concerned about getting pneumonia. She has had a productive cough, postnasal drip, and some mild headache. It started with a sore throat, but that has pretty much resolved. OBJECTIVE: On exam, temperature 98.1, blood pressure 140/80, pulse is 84. In general, she is in no acute distress. Bilateral TMs and oropharynx appear normal. No lymphadenopathy. Heart -regular S1 and S2. Lungs are clear to auscultation, with good air movement. ASSESSMENT: Problem #1: Upper respiratory infection. PLAN: Continue conservative treatment. If symptoms worsen or become prolonged, a prescription for Amoxil, 875 b.i.d. has been provided. Problem #2: Restless leg syndrome. PLAN: Continue with clonazepam h.s. p.r.n., #90 with refills for a year. Problem #3: Diabetes. PLAN: She still has the lab slip for a hemoglobin A1c and fasting lipid profile at her convenience,although she is concerned aboutdoing this because she still is uninsured. Signed by Tiara Mendez MD 03/25/2006 10:56 Luke Dukes MD Tiara Mendez MD - Tiara Mendez MD P - clr Job ID: [id number] Document ID: [id number] cc: documented in this encounter Plan of Treatment Not on file documented as of this encounter Visit Diagnoses Not on filedocumented in this encounter Care Teams Business Development Executive Relationship Specialty Start Date End Date Avel Rivera MD PCP - General 09/03/08 07/10/09 documented as of this encounter
--- OUTSIDE RECORDS SUMMARY | 2023-12-02 18:39 | XMS_ITS | Encounter Summary ---
Author Organization [facility] Address [address] [place] [address] Care Team Providers Care Statistical Assistant Name Role Phone Avel Rivera MD Primary Care Provider Unav ailable Encounter Details Date Type Department Care Team (Late st Contact Info) Description 06/17/2006 Before PRISM Converted Visit (Maple) [facility] - Maple conversion [address] [place] [address] Tiara Mendez MD [phone] [place] [address] Social History Tobacco Use Types Packs/Day Years Used Date Smoking Tobacco: Never Assessed Sex and Gender Information Value Date Recorded Sex Assigned at Not on file Gender Identity Female 02/14/2022 14:15 EST Sexual Orientation Not on file documented as of this encounter Progress Notes * Alison Misrha Project Design Engineer - 02/08/2009 1252 EST [facility] PROGRESS/FOLLOWUP NOTE - 06/17/2006 ANA M Jarquin comes in because she has continued to have some constipation and abdominal pain. She has anappointment for a colonoscopy on July 09, 2006. She and her thought about this and there may very well be an association between the Special K, which she started eating for two meals a day about a month agoand the onset of her constipation. She did have several bowel movements this morning with the use of a stool softener and this improved her pain. Other concern is sleeping issues. She feels quite fatigued despite 7-8 hours sleep and never wakes up refreshed. She does snore. This is a little bit better with Breathe Right strips. If she could take a nap during the day, she certainly wo uld try, but she said even when she does this, she wakes up feeling worse than when she went to sleep. Does not fall asleep driving. Has no family history of sleep apnea. PHYSICAL EXAM 98.3. Blood pressure 128/56. Pulse is 88. Weight 157 pounds. In general, she is in noacute distress. No other exam was done today. ASSESSMENT 1. Constipation, which may very well be secondary to the increased Special K in her diet. PLAN She will discontinue this, proceed with the colonoscopy any way because she needs it given her age for screening purposes. If she needs something like GlycoLax, she can call and we will call that in. 2. Questionable sleep apnea with significant fatigue. PLAN 1. Will make a referral to the sleep clinic at [facility] for further evaluation and decide whether a sleep study is warranted. 2. Will also check a CBC, free T4, and a comprehensive metabolic profile at her convenience. 3. Diabetes. PLAN Now that she has Medicare, we should get a lot of her other medical issues situated and once the constipation and fatigue problems have improved, she will come back, so we can have a longer visit regarding these. 25 minutes spent with this patient, greater that 50% of the time in counseling. Signed by Tiara Mendez MD 06/23/2006 12:40 Krishna Mendez, MDDcat Mendez MD Tiara Mendez MD P Job ID [id number] Sharron/nubia Doc ID [id number] cc: \* MERGEFORMAT Tiara Mendez MD P Job ID [id number] A/nubia Doc ID [id number] cc: documented in this encounter Plan of Treatment Not on file documented as of this encounter Visit Diagnoses Not on filedocumented in this encounter Care Teams Statistical Assistant Relationship Specialty Start Date End Date Avel Rivera MD PCP - General 09/03/08 07/10/09 documented as of this encounter
--- OUTSIDE RECORDS SUMMARY | 2023-12-02 18:39 | XMS_ITS ---
Author Organization Unknown Address [address] [place] [phone] Phone Care Team Providers Care Bridge Leverman Name Role Phone HANSA RODRIGUEZ MD Attending Unavailable JOHN PETERSON Primary Unavailable Results URINALYSIS ROUTINE - Collect Date/Time: 11/17/2020 15:00 [facility] ID: [id number] [address] [place], [place], [address] LOINC: Test Value Unit Reference Range Code Code System Flag COLLECTION MODE: CLEAN CATCH Color ORANGE yellow 5778-6 LOINC Appearance HAZY clear 5767-9 LOINC Glucose urine DNR negative mg/dl 97742-0 LOINC Bilirubin DNR negative 5770-3 LOINC Ketones DNR negative mg/dl 2514-8 LOINC Spec gravity DNR 1.003 - 1.030 5811-5 LOINC pH urine DNR 5.0 - 7.0 2756-5 LOINC Protein DNR negative mg/dl 53251-9 LOINC Urobilinogen DNR <or= 1 EU/dl 98033-3 LOINC Nitrite DNR negative 5802-4 LOINC Blood DNR negative 5794-3 LOINC Leukocytes DNR negative 64746-0 LOINC MICROSCOPIC* INDICATED WBCs 25-100 0-5 / hpf 21563-1 LOINC RBCs 5-10 0-5 / hpf 56642-6 LOINC Epith cells none 0-5 / hpf 81304-3 LOINC Crystals none none Bacteria large none Mucus none none 8247-9 LOINC Casts none none /lpf 31270-6 LOINC Other 36125-0 LOINC CORRECTED CORRECTED Social History Type Status Start Date End Date Code Code Syst em Smoking History Never smoker (Never Smoked) [id number] SNOMED CT Sex Female Medications Medication Start Date End Date Route Frequency Dose Code Code System Medication Instructions Home Meds Amitriptyline 50MG Oral Tablet 08/20/2019 01/02/2022 ORAL BEDTIME 50 MILLIGRAMS 223343 RxNorm TAKE 50 MILLIGRAMS ORAL BEDTIME Atorvastatin Calcium 20MG Oral Tablet 08/20/2019 Unknown ORAL BEDTIME 20 MILLIGRAMS 005815 RxNorm TAKE 20 MILLIGRAMS ORAL BEDTIME Fish Oil 1000MG Oral Capsule, Liquid Filled 08/20/2019 Unknown ORAL DAILY 3 CAPSULE 631653 RxNorm TAKE 3 CAPSULE ORAL DAILY Gabapentin 800MG Oral Tablet 08/20/2019 Unknown ORAL TWICE A DAY 1 TABLET 526084 RxNorm TAKE 1 TABLET ORAL TWICE A DAY Lisinopril 20MG Oral Tablet 08/20/2019 Unknown ORAL DAILY 20 MILLIGRAMS 367148 RxNorm TAKE 20 MILLIGRAMS ORAL DAILY Loratadine 10MG Oral Tablet 08/20/2019 01/02/2022 ORAL DAILY 10 MILLIGRAMS 309962 RxNorm TAKE 10 MILLIGRAMS ORAL DAILY Multiple Vitamin Formula Oral Tablet 08/20/2019 Unknown ORAL DAILY 1 unit(s) 0742820 RxNorm TAKE 1 EACH ORAL DAILY Pramipexole Dihydrochlorid e 0.125MG Oral Tablet 08/20/2019 09/30/2023 ORAL BEDTIME 2 TABLET 314322 RxNorm TAKE 2 TABLET ORAL BEDTIME Probiotic 250MG Oral Capsule 08/20/2019 01/02/2022 ORAL DAILY 3 TABLET 010585 RxNorm TAKE 3 TABLET ORAL DAILY glipiZIDE 10MG Oral Tablet, Extended Release 08/20/2019 Unknown ORAL DAILY 10 MILLIGRAMS 809042 RxNorm TAKE 10 MILLIGRAMS ORAL DAILY metFORMIN HCl 1000MG Oral Tablet 08/20/2019 Unknown ORAL TWICE A DAY WITH FOOD 1000 MILLIGRAMS 742167 RxNorm TAKE 1000 MILLIGRAMS ORAL TWICE A DAY WITH FOOD Cephalexin 500MG Oral Tablet 08/20/2019 01/02/2022 ORAL THREE TIMES A DAY 1 TABLET 274086 RxNorm TAKE 1 TABLET ORAL THREE TIMES A DAY Keflex 500MG Oral Capsule 01/02/2022 09/30/2023 ORAL THREE TIMES A DAY 1 CAPSULE 240916 RxNorm TAKE 1 CAPSULE ORAL THREE TIMES A DAY Nystatin 374760W/1ML Oral Suspension 01/02/2022 09/30/2023 ORAL FOUR TIMES A DAY 5 mL 101546 RxNorm TAKE 5 mL ORAL FOUR TIMES A DAY Hospital Discharge Instructions Should you have any questions prior to discharge, please contact a member of your healthcare team. If you have left the hospital and have any questions, please contact your primary care physician. Reason For Referral No Data Found Problems Problem Start Date Resolved Date Status Code Code System HTN 08/20/2019 resolved 51491821 SNOMED-CT PERSONAL HISTORY OF BLADDER CA 08/20/2019 resolved 116913689 SNOMED-CT NON-INSULIN DEPENDENT DIABETES MELLITUS 08/20/2019 resolved 13897373 SNOMED-CT 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 601441433 SNOMED-CT CIRRHOSIS - NON-ALCOHOLIC 01/02/2022 resolved 266 747107 SNOMED-CT HIGH CHOLESTEROL 10/01/2023 resolved 16350215 SN OMED-CT Allergies and Adverse Reactions Allergy Substance Reaction Severity Start Date Concern Status Co de Code System CODEINE Active 5700 RxNorm Plan of Treatment NM MPI STR/RST 05/15/2023 CT CHEST W/O CONTRAST 05/18/2022 CT CHEST W/O CONTRAST 03/26/2022 MRI BRAIN W/O CONTRAST 01/25/2021 Encounters Encounter Diagnosis Start Date Code Code Sys tem Dysuria 11/17/2020 92166306 SNOMED-CT Personal Care Team Section Performer Name Performer Role Active Date Inactive Da lanette
--- OUTSIDE RECORDS SUMMARY | 2023-12-02 18:39 | XMS_ITS | Encounter Summary ---
Author Organization [facility] Address [address] [place] [address] Care Team Providers Care Hydraulic Jack Adjuster Name Role Phone Avel Rivera MD Primary Care Provider Unav ailable Encounter Details Date Type Department Care Team (Late st Contact Info) Description 05/06/2007 Before PRISM Converted Visit (Maple) [facility] - Maple conversion [address] [place] [address] Maria Elena Falcon MD Social History Tobacco Use Types Packs/Day Years Used Date Smoking Tobacco: Never Assessed Sex and Gender Information Value Date Recorded Sex Assigned at Not on file Gender Identity Female 02/14/2022 14:15 EST Sexual Orientation Not on file documented as of this encounter Progress Notes * Maria Elena Falcon MD - 02/15/2009 0659 EST [facility] PROGRESS/FOLLOWUP NOTE - 05/06/2007 ANA M Jarquin is here because of difficulty with a rash. She was started on Bactrim on April 25, 2007. She then developed a rash on her hands and underneath her chin. OnApril 30, 2007, she was switchedfrom Bactrim to doxycycline. Despite this switch, the rash has persisted. She has had itching of the skin underneath her chin and a little bit on her hands. She has had no other rash. She has been using some hydrocortisone cream on the rash without much relief. She also notes that she is under a good bit of stress recently. A family member is very ill and dying at home. OBJECTIVE She is well appearing. Underneath her chin, she has a confluent red patch extending the entire underside of the chin getting onto the neck. This is dry and somewhat scaly in appearance. There are no vesicles. There are no satellite lesions. The patient points to the back of her hands as an area of rash but those areas really just seem to be dry skin. She has some itching going up the sides of herface. She has no hiving or rash on her trunk. ASSESSMENT Rash. Patient presents with a rash which was present before she went on the doxycycline. My suspicion is that this is either wintertime eczemaor residual from her sulfa rash. In reviewing her history, she had been on the antibiotics because of question of sinusitis; however, a sinus CT was negative. PLAN She will stop all antibiotics. Allergy is listed in her chart to sulfa. I do not think that she hasan allergy to doxycycline. She will use hydrocortisone 1% cream, applied three times daily lightly to her neck. She will cover this with Eucerin cream. She will avoid hot showers. Directions were written down for the patient regarding applying the cream and she verbalized her understanding. Signed by Maria Elena Falcon MD 05/09/2007 13:45 Maria Elena Falcon MD P Job ID [id number] T: 7:21 A/KAMALA Doc ID [id number] cc: ctd/kamala Doc ID [id number] cc: documented in this encounter Plan of Treatment Not on file documented as of this encounter Visit Diagnoses Not on filedocumented in this encounter Care Teams Hydraulic Jack Adjuster Relationship Specialty Start Date End Date Avel Rivera MD PCP - General 09/03/08 07/10/09 documented as of this encounter
--- OUTSIDE RECORDS SUMMARY | 2023-12-02 18:39 | XMS_ITS | Encounter Summary ---
Author Organization [facility] Address [address] [place] [address] Care Team Providers Care Collar Shaper Operator Name Role Phone Avel Rivera MD Primary Care Provider Unav ailable Encounter Details Date Type Department Care Team (Late st Contact Info) Description 06/14/2005 Before PRISM Converted Visit (Maple) [facility] - Maple conversion [address] [place] [address] Tiara Mendez MD [phone] [place] [address] Social History Tobacco Use Types Packs/Day Years Used Date Smoking Tobacco: Never Assessed Sex and Gender Information Value Date Recorded Sex Assigned at Not on file Gender Identity Female 02/14/2022 14:15 EST Sexual Orientation Not on file documented as of this encounter Progress Notes * Alison Mishra Director Of Accounts Payable - 03/17/2009 4500 EST [facility] PROGRESS/FOLLOWUP NOTE - 06/14/2005 SUBJECTIVE: Milka is here because she has been ill for the past week to two. She complains of nasal congestion, sore throat, headache, otalgia, and ???pressure in her lungs.?? She has not really been able to bring up anything when coughing. She has tried several pxyk-jft-ofmmrfe medications without much improvement. She also complains of some occasional left upper quadrant pain, which also is,on occasion, accompanied by some lower chest pain. She has a history of reflux-type symptoms and does not take anything for it currently. She also has several spots on her abdomen which she would like to be evaluated. OBJECTIVE: On exam, blood pressure is 164/88, pulse 100, temperature 97.2. In general, she is in noacute distress. Bilateral TMs and oropharynx are normal. No lymphadenopathy. Heart -regular S1 and S2. Lungs have some coarse breath sounds, but are otherwise clear. Examination of the skin reveals typical seborrheic keratoses on the trunk. Abdomen is benign. ASSESSMENT: Problem #1: Upper respiratory infection with some questionable early bronchitis. PLAN: Amoxil, 875 b.i.d. for ten days. Continue with qcen-ddm-wzzznoa medications. Problem #2: Left upper quadrant pain intermittently which is likely gastrointestinal in origin. PLAN: I will have her try either an H2 reva or PPI cwzj-biq-yzfonwi to see if her symptoms improve. Problem #3: Seborrheic keratoses. PLAN: The patient was reassured. Problem #4: Hypertension. Not improving as much as hoped with just lifestyle changes. The patient would really like to try to increase her exercise and see if this helps. I explained to the patient she may very well need to go on medication if not improving soon. Signed by Tiara Mendez MD 06/18/2005 18:37 [facility]na Mendez, [facility] MD Tiara Mendez MD - Tiara Mendez MD P - clr Job ID: [id number] Document ID: [id number] cc: documented in this encounter Plan of Treatment Not on file documented as of this encounter Visit Diagnoses Not on filedocumented in this encounter Care Teams Collar Shaper Operator Relationship Specialty Start Date End Date Avel Rivera MD PCP - General 09/03/08 07/10/09 documented as of this encounter
--- OUTSIDE RECORDS SUMMARY | 2023-12-02 18:39 | XMS_ITS | Encounter Summary ---
Author Organization [facility] Address [address] [place] [address] Care Team Providers Care Sign Hanger Supervisor Name Role Phone Avel Rivera MD Primary Care Provider Unav ailable Encounter Details Date Type Department Care Team (Late st Contact Info) Description 04/25/2007 Before PRISM Converted Visit (Maple) [facility] - Maple conversion [address] [place] [address] Tiara Mendez MD [phone] [place] [address] Social History Tobacco Use Types Packs/Day Years Used Date Smoking Tobacco: Never Assessed Sex and Gender Information Value Date Recorded Sex Assigned at Not on file Gender Identity Female 02/14/2022 14:15 EST Sexual Orientation Not on file documented as of this encounter Progress Notes * Alison Mishra Quill Winder - 02/16/2009 1357 EST [facility] PROGRESS/FOLLOWUP NOTE - 05/09/2007 ANA M Jarquin comes in as she has had some problems occurring since I saw her last. She got hives from Bactrim, so was changed to doxycycline. She then started developing a rash on her face that she was concerned may be related to the doxycycline, so she stopped it after she was seen on May 06, 2007.She has been using Monistat on the rash and it has helped a little bit. Complains of her tongue being sore and the back of her throat being red,which she attributes to thrush. Has not yet gone back on the Nystatin, but did take Diflucan Saturday. Urine culture showed less than 10,000 gram positivecocci. She is not having any urinary symptoms at this time. She did have 10-15 red cells when checked. Her stepfather is dying at this point and has had a significant yeast infection, so she was concerned that she may have caught something from him. PHYSICAL EXAM Temperature 98.2. Blood pressure 146/84. Repeat 142/78. Pulse is 88. Weight 170. In general, she isin no acute distress. Evaluation of the face reveals thickened skin, particularly around the neck and the right side of the face. No other abnormalities were seen. Urinalysis shows 1+ blood, 1+ leukocyte otherwise negative. ASSESSMENT 1. Probable tinea versicolor. PLAN Ketoconazole cream to the affected area daily until clear, #60 grams, with no refills. 2. Hematuria with 10-15 cells noted on last urinalysis, 1+ blood noted today with no growth on culture. PLAN I am planning to see the patient back in about a month and will recheck it at that point to make sure it has cleared as I am worried about other etiologies of hematuria. 3. Thrush. PLAN She will continue on the Nystatin that has been called in for her. If necessary she can take another Diflucan. This is a chronic problem for the patient. 4. Stress with her stepfather dying. She seems to be doing well with it. PLAN Offered any help I could. Signed by Tiara Mendez MD 05/15/2007 08:52 Tiara Mendez MD P Job ID [id number] T: 6:02 P/JG Doc ID [id number] cc: P Job ID [id number] P/jg Doc ID [id number] cc: * Alison Mishra Quill Winder - 02/16/2009 1347 EST [facility] PROGRESS/FOLLOWUP NOTE - 04/25/2007 ANA M Jarquin is here complaining of not feeling well for the last three weeks. Really does not feel likeshe got tremendously better since I prescribed amoxicillin for her back in January 2007. Continues to complain of left maxillary and frontal sinus tenderness. She has been using Mucinex nasal spray with has helped some. Has not had a fever. She describes the left side of her neck feeling somewhat so re. OBJECTIVE On examination, temperature 97.8. Blood pressure 128/82. Pulse is 88. In general, she is in no acute distress. Bilateral TMs are clear. Oropharynx shows larger than expected tonsils but no erythema or exudate. Slight adenopathy in the left anterior cervical chain. Neck is supple with full range of motion. Heart regular S1 and S2. Lungs are clear to auscultation bilaterally. ASSESSMENT Left-sided sinusitis which does not sound like it completely resolved after last visit. PLAN Bactrim DS one p.o. b.i.d. for 14 days. Would also like to get a CAT scan of her sinuses about a week after antibiotic use to see if she has cleared up. If not or if she has recurrent symptoms, may need to have ENT referral. Signed by Tiara Mendez MD 04/29/2007 09:42 Tiara Mendez MD P Job ID [id number] T: 5:05 Sharron/jennie Doc ID [id number] cc: cc: documented in this encounter Plan of Treatment Not on file documented as of this encounter Visit Diagnoses Not on filedocumented in this encounter Care Teams Sign Hanger Supervisor Relationship Specialty Start Date End Date Avel Rivera MD PCP - General 09/03/08 07/10/09 documented as of this encounter
--- OUTSIDE RECORDS SUMMARY | 2023-12-02 18:39 | XMS_ITS ---
Author Organization Unknown Address [address] [place] [phone] Phone Care Team Providers Care Bunk House Worker Name Role Phone GINOINGRIS MAHENDRA Attending Unavailable [facility] Primary Unavailable Social History Type Status Start Date End Date Code Code Syst em Smoking History Never smoker (Never Smoked) 691864490 SNOMED CT Sex Female Medications Medication Start Date End Date Route Frequency Dose Code Code System Medication Instructions Home Meds Amitriptyline 50MG Oral Tablet 08/20/2019 01/02/2022 ORAL BEDTIME 50 MILLIGRAMS 109543 RxNorm TAKE 50 MILLIGRAMS ORAL BEDTIME Atorvastatin Calcium 20MG Oral Tablet 08/20/2019 Unknown ORAL BEDTIME 20 MILLIGRAMS 183256 RxNorm TAKE 20 MILLIGRAMS ORAL BEDTIME Fish Oil 1000MG Oral Capsule, Liquid Filled 08/20/2019 Unknown ORAL DAILY 3 CAPSULE 585827 RxNorm TAKE 3 CAPSULE ORAL DAILY Gabapentin 800MG Oral Tablet 08/20/2019 Unknown ORAL TWICE A DAY 1 TABLET 843121 RxNorm TAKE 1 TABLET ORAL TWICE A DAY Lisinopril 20MG Oral Tablet 08/20/2019 Unknown ORAL DAILY 20 MILLIGRAMS 433081 RxNorm TAKE 20 MILLIGRAMS ORAL DAILY Loratadine 10MG Oral Tablet 08/20/2019 01/02/2022 ORAL DAILY 10 MILLIGRAMS 746492 RxNorm TAKE 10 MILLIGRAMS ORAL DAILY Multiple Vitamin Formula Oral Tablet 08/20/2019 Unknown ORAL DAILY 1 unit(s) 8429724 RxNorm TAKE 1 EACH ORAL DAILY Pramipexole Dihydrochlorid e 0.125MG Oral Tablet 08/20/2019 09/30/2023 ORAL BEDTIME 2 TABLET 836978 RxNorm TAKE 2 TABLET ORAL BEDTIME Probiotic 250MG Oral Capsule 08/20/2019 01/02/2022 ORAL DAILY 3 TABLET 719606 RxNorm TAKE 3 TABLET ORAL DAILY glipiZIDE 10MG Oral Tablet, Extended Release 08/20/2019 Unknown ORAL DAILY 10 MILLIGRAMS 699752 RxNorm TAKE 10 MILLIGRAMS ORAL DAILY metFORMIN HCl 1000MG Oral Tablet 08/20/2019 Unknown ORAL TWICE A DAY WITH FOOD 1000 MILLIGRAMS 412858 RxNorm TAKE 1000 MILLIGRAMS ORAL TWICE A DAY WITH FOOD Cephalexin 500MG Oral Tablet 08/20/2019 01/02/2022 ORAL THREE TIMES A DAY 1 TABLET 968877 RxNorm TAKE 1 TABLET ORAL THREE TIMES A DAY Keflex 500MG Oral Capsule 01/02/2022 09/30/2023 ORAL THREE TIMES A DAY 1 CAPSULE 030606 RxNorm TAKE 1 CAPSULE ORAL THREE TIMES A DAY Nystatin 966905X/1ML Oral Suspension 01/02/2022 09/30/2023 ORAL FOUR TIMES A DAY 5 mL 654747 RxNorm TAKE 5 mL ORAL FOUR TIMES A DAY Hospital Discharge Instructions Should you have any questions prior to discharge, please contact a member of your healthcare team. If you have left the hospital and have any questions, please contact your primary care physician. Reason For Referral No Data Found Problems Problem Start Date Resolved Date Status Code Code System HTN 08/20/2019 resolved 68299412 SNOMED-CT PERSONAL HISTORY OF BLADDER CA 08/20/2019 resolved 852957947 SNOMED-CT NON-INSULIN DEPENDENT DIABETES MELLITUS 08/20/2019 resolved 65658655 SNOMED-CT 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 660430208 SNOMED-CT CIRRHOSIS - NON-ALCOHOLIC 01/02/2022 resolved 266 585016 SNOMED-CT HIGH CHOLESTEROL 10/01/2023 resolved 62484981 SN OMED-CT Allergies and Adverse Reactions Allergy Substance Reaction Severity Start Date Concern Status Co de Code System CODEINE Active 2670 RxNorm Plan of Treatment NM MPI STR/RST 05/15/2023 CT CHEST W/O CONTRAST 05/18/2022 CT CHEST W/O CONTRAST 03/26/2022 MRI BRAIN W/O CONTRAST 01/25/2021 Encounters Encounter Diagnosis Start Date Code Code Sys tem Benign paroxysmal vertigo, left ear 11/01/2020 SNOMED-CT Personal Care Team Section Performer Name Performer Role Active Date Inactive Da te
--- OUTSIDE RECORDS SUMMARY | 2023-12-02 18:39 | XMS_ITS | Encounter Summary ---
Author Organization [facility] Address [address] [place] [address] Care Team Providers Care Typesetter Apprentice Name Role Phone Avel Rivera MD Primary Care Provider Unav ailable Encounter Details Date Type Department Care Team (Late st Contact Info) Description 07/28/2007 Before PRISM Converted Visit (Maple) [facility] - Maple conversion [address] [place] [address] Sharifa Britton, INDIRA [address] [facility] [address] [place] [address] Social History Tobacco Use Types Packs/Day Years Used Date Smoking Tobacco: Never Assessed Sex and Gender Information Value Date Recorded Sex Assigned at Not on file Gender Identity Female 02/14/2022 14:15 EST Sexual Orientation Not on file documented as of this encounter Progress Notes * Sharifa Britton MD - 12/31/2008 0141 EDT [facility] PROGRESS/FOLLOWUP NOTE - 07/28/2007 ANA M Jarquin is here because of blood that she found in her urine yesterday. Today, she had just a little on her toilet paper but not in the toilet. She was seen here with hematuria two monthsago. She wastreated for infection, although there were really insignificant issues along that way. She did improve, however. She has not been worked up for any bladder issues recently. She has seen the urologistat some previous time, unclear as to when. She is not having any frequency, just noticed the blood; no other pain. OBJECTIVE Blood pressure is 120/60 and pulse is 82. Temperature is 97.1. Weight is 172. Urinalysis has 3+ blood, trace leukocytes and otherwise is normal. ASSESSMENT Hematuria. PLAN We will send this off for culture; however, I think that she probably needs to see a urologist for further workup. I will await the result of the culture, however, before I do the referral. She understood our discussion and concurred with the plan. Signed by INDIRA Cruz 08/04/2007 14:52 INDIRA Cruz - INDIRA Cruz [facility] Job ID: [id number] Document ID: [id number] cc: documented in this encounter Plan of Treatment Not on file documented as of this encounter Visit Diagnoses Not on filedocumented in this encounter Care Teams Typesetter Apprentice Relationship Specialty Start Date End Date Avel Rivera MD PCP - General 09/03/08 07/10/09 documented as of this encounter
--- OUTSIDE RECORDS SUMMARY | 2023-12-02 18:39 | XMS_ITS | Encounter Summary ---
Author Organization [facility] Address [address] [place] [address] Care Team Providers Care Product Finisher Name Role Phone Avel Rivear MD Primary Care Provider Unav ailable Encounter Details Date Type Department Care Team (Late st Contact Info) Description 01/27/2007 Before PRISM Converted Visit (Maple) [facility] - Maple conversion [address] [place] [address] Tiara Mendez MD [phone] [place] [address] Social History Tobacco Use Types Packs/Day Years Used Date Smoking Tobacco: Never Assessed Sex and Gender Information Value Date Recorded Sex Assigned at Not on file Gender Identity Female 02/14/2022 14:15 EST Sexual Orientation Not on file documented as of this encounter Progress Notes * Alison Mishra Beehive Kiln Supervisor - 02/15/20091955 EST [facility] PROGRESS/FOLLOWUP NOTE - 01/27/2007 ANA M Jarquin comes in with complaint of intermittent lightheadedness episodes for the past month or so. Interestingly this has been since she had both cataracts removed. Her vision is excellent and she isvery excited about the results. She has been using some left over meclizine and had good improvement of her lightheadedness. She also complains of an intermittent bad smell occurring 2-3 times a weekand lasting about an hour each time. This has been a problem since her sinus infection in March 2006. Denies any other neurological symptoms. PHYSICAL EXAM Temperature 98.2. Blood pressure 134/82. Pulse 88. Weight 168 pounds. In general, she is in no acute distress. Bilateral TMs are clear. Oropharynx is nonerythematous. No lymphadenopathy. She does have some sinus tenderness. Heart: Regular S1, S2. Lungs are clear to auscultation bilaterally. Neurological exam: Cranial nerves II-XII are intact. Strength is full in upper and lower extremities. Normal toe-heel and tandem walking. Negative Romberg. No pronator drift. ASSESSMENT 1. Lightheadedness, which is better with meclizine. PLAN This was renewed for 25 mg t.i.d. p.r.n. #60, with no refills. 2. Questionable recurrence of sinus symptoms with ???bad smell?? accompanying this. PLAN 1. Will treat with Amoxil 875 b.i.d. as she does have some sinus tenderness. 2. If this bad smell does not completely resolve I have asked her to let me know so we can considerfurther evaluation possibly with ENT referral. 3. Well care. PLAN 1. Will schedule a mammogram at her convenience. 2. Flu shot was given today. 3. Pneumococcal vaccination has been given since the age of 66. Signed by Tiara Mendez MD 01/30/2007 15:02 Tiara Mendez MD P Job ID [id number] T: 12:49 P/mariannag Doc ID [id number] cc: Tiara Mendez MD P Job ID [id number] P/jg Doc ID [id number] cc: documented in this encounter Plan of Treatment Not on file documented as of this encounter Visit Diagnoses Not on filedocumented in this encounter Care Teams Product Finisher Relationship Specialty Start Date End Date Avel Rivera MD PCP - General 09/03/08 07/10/09 documented as of this encounter
--- OUTSIDE RECORDS SUMMARY | 2023-12-02 18:39 | XMS_ITS | Encounter Summary ---
Author Organization [facility] Address [address] [place] [address] Care Team Providers Care Concreter Name Role Phone Avel Rivera MD Primary Care Provider Unav ailable Encounter Details Date Type Department Care Team (Late st Contact Info) Description 06/02/2007 Before PRISM Converted Visit (Maple) [facility] - Maple conversion [address] [place] [address] Tiara Mendez MD [phone] [place] [address] Social History Tobacco Use Types Packs/Day Years Used Date Smoking Tobacco: Never Assessed Sex and Gender Information Value Date Recorded Sex Assigned at Not on file Gender Identity Female 02/14/2022 14:15 EST Sexual Orientation Not on file documented as of this encounter Progress Notes * Tad, Conv Histology Teacher - 12/29/2008 1989 EDT [facility] PROGRESS/FOLLOWUP NOTE - 06/02/2007 SUBJECTIVE comes in because she is having some lower abdominal discomfort intermittently for several months. Question of whether it gets better after urination, but she does note that it improves after a bowel movement. She denies any dysuria. No fever or CVangle pain. She had a yeast infection so she took Diflucan 2 or 3 days ago and has not noticed any change in this. She is not taking any type of stool softener at present. She has a bowel movement every day, but it is somewhat harder than she would like. OBJECTIVE On exam, blood pressure is 150/80. In general she is in no acute distress. Abdomen is soft with some slight tenderness in the suprapubic area, no rebound or guarding. Bowel sounds are active. No CV angle pain. Urinalysis shows a trace of intactblood, 2+ leukocytes, otherwise negative with a specific gravity of 1.010. ASSESSMENT Lower abdominal pain which I think is more likely related to her bowels. She has had hysterectomy and BSO in the late 80s. She has been seen by urology in the past for incontinence problems, but did not try any medications for this. I am somewhat concerned about the blood noted in her urine and I am planning to repeat the urine with microscopic in about a month and see if this is completely gone or if it is something we need to work-up further. In the meantime, I have encouraged her to start Colace 100 mg once a day in an effort to keep her bowels soft. She usually drinks a lot of water so she will continue with that and let me know if the symptoms worsen. Signed by Tiara Mendez MD 06/10/2007 11:10 Tiara Mendez MD P Job ID [id number] T: 1:22 P/DIS Doc ID [id number] cc: P Job ID [id number] P/dis Doc ID [id number] cc: documented in this encounter Plan of Treatment Not on file documented as of this encounter Visit Diagnoses Not on filedocumented in this encounter Care Teams Concreter Relationship Specialty Start Date End Date Avel Rivera MD PCP - General 09/03/08 07/10/09 documented as of this encounter
--- OUTSIDE RECORDS SUMMARY | 2023-12-02 18:39 | XMS_ITS | Encounter Summary ---
Author Organization [facility] Address [address] [place] [address] Care Team Providers Care Needle Punch Machine Operator Helper Name Role Phone Avel Rivera MD Primary Care Provider Unav ailable Encounter Details Date Type Department Care Team (Late st Contact Info) Description 03/30/2005 Before PRISM Converted Visit (Maple) [facility] - Maple conversion [address] [place] [address] Luis Fernando Kinsey MD [address] [place] [phone] Social History Tobacco Use Types Packs/Day Years Used Date Smoking Tobacco: Never Assessed Sex and Gender Information Value Date Recorded Sex Assigned at Not on file Gender Identity Female 02/14/2022 14:15 EST Sexual Orientation Not on file documented as of this encounter Progress Notes * Luis Fernando Kinsey - 06/09/20092105 EST [facility] PROGRESS/FOLLOWUP NOTE - 03/30/2005 REASON FOR VISIT: Conjunctivitis. SUBJECTIVE: The patient has a two day history of her right eye being red and mildly edematous. She also has had discharge with increased tearing and mucus. Eyes were matted shut today. Warm compresses help with this. Slight discomfort and itching, but no significant other pain noted. Visual acuity largely intact. Of note -she does have a cataract in that eye, but no change from baseline. No left eye symptoms. No significant congestive of other complaints noted. Otherwise in her usual state of health. Of note -she did have contact with her granddaughter one week ago, who had conjunctivitis. OBJECTIVE: Blood pressure 160/70, pulse 88. General - alert and in no acute distress. TMs are lewis.Nose was clear. Eyes - pupils are equal, round, and reactive to light. Conjunctivae -positive erythema on the right, none on the left. No perilimbic erythema on the right. No increased tearing. The lashes were significant for crusted mucus. Conjunctivae also involved tarsal and bulbar erythema . Nose was clear. Throat - no erythema or exudate. Chest is clear to auscultation. Cardiovascular - regular rate and rhythm, no murmur. Abdomen - nontender. ASSESSMENT: Problem #1: Conjunctivitis. PLAN: 1. Gentamicin drops, one to two drops q.i.d. to the infected eye. 2. May continue moist compresses. 3. Follow-up for any worsening symptoms, particularly if vision should change or discomfort increase. Problem #2: Elevated systolic blood pressure. PLAN: 1. Continue current treatment and follow-up with her primary care physician if this persists. Signed by Luis Fernando Kinsey MD 04/16/2005 14:04 Esmer Robbins MD Luis Fernando Kinsey MD - Luis Fernando Kinsey MD A - clr Job ID: [id number] Document ID: [id number] cc: documented in this encounter Plan of Treatment Not on file documented as of this encounter Visit Diagnoses Not on filedocumented in this encounter Care Teams Needle Punch Machine Operator Helper Relationship Specialty Start Date End Date Avel Rivera MD PCP - General 09/03/08 07/10/09 documented as of this encounter
--- OUTSIDE RECORDS SUMMARY | 2023-12-02 18:39 | XMS_ITS | Encounter Summary ---
Author Organization [facility] Address [address] [place] [address] Care Team Providers Care Rig Builder Name Role Phone Avel Rivera MD Primary Care Provider Unav ailable Encounter Details Date Type Department Care Team (Late st Contact Info) Description 07/01/2006 Before PRISM Converted Visit (Maple) [facility] - Maple conversion [address] [place] [address] Tiara Mendez MD [phone] [place] [address] Social History Tobacco Use Types Packs/Day Years Used Date Smoking Tobacco: Never Assessed Sex and Gender Information Value Date Recorded Sex Assigned at Not on file Gender Identity Female 02/14/2022 14:15 EST Sexual Orientation Not on file documented as of this encounter Progress Notes * Alison Mishra Jewelry Enameler - 02/08/2009 1017 EST [facility] PROGRESS/FOLLOWUP NOTE - 07/01/2006 SUBJECTIVE Mrs. Corbett comes in with several complaints. First is persistent yeast symptoms in the oral mucosa and perioral area despite use of nystatin, which usually keeps her under pretty good control. She,of course, is concernedthat her sugar may be a problem, although her fasting blood sugar earlier this month was 88. The abdominal pain that she was in for earlier has completely resolved since discontinuing Special K. She will proceed with a colonoscopy, though, as we had discussed. She cut her right knee a couple of days ago and her tetanus is past due, so she needs to have this updated. She has stress incontinence for which she wears a pad this is frustrating for her, and she would be interested in knowing whether or not there are any treatment optionsavailable. She does not describe much inthe way of urge incontinence issues. She has been diagnosed with cataracts in the past, and the right eye particularly is now becoming problematic to the point where she will not driveat night because of the glare. is due for a Pneumovax since she has now turned 66, as well. Mammogram is up to date. She had a hysterectomy for benign reasons, with removal of the cervix, so there is no need to continue with ongoing Pap smears. OBJECTIVE On physical examination, in general, she is in no acute distress. VITAL SIGNS: Blood pressure 126/74 and excellent for her, pulse 8weight 156 pounds, height 61-3/4 inches. HEENT: Bilateral TMs and oropharynx are normal. She does have fairly dense cataracts in both eyes, although the right seems worse than the left. No carotid bruits. HEART: Regular S1 and S2. LUNGS: Clear to auscultation. BREASTS: Negative. ABDOMINAL: Unremarkable. EXTREMITIES: She has some slight swelling of the left ankle compared to the right, which is a chronic finding for her. Abrasion of the right knee is noted, which does seem to be healing well. ASSESSMENT 1. Stress incontinence, for which she would like to consider alternatives, so will make a referral to Dr. Victoria for this. 2. Cataracts, which are limiting her activities of daily living, so will make a referral to the eyedoctor when she finds out the name of the one her friend went to in [place]. 3. Hypertension, excellently controlled at present. She had a normal comprehensive metabolic profile earlier this month. 4. Diabetes. Will plan to check a hemoglobin A1C when she does her next set of labs in December 2006. Will also get a microalbumin at that point. 5. Abrasion of the right knee. TDAP was given today. 6. Hyperlipidemia. Check a fasting lipid panel when she does the labs in December 2006. 7. Well care. Will give her her Pneumovax today, so she should be set for life on this. Will schedule her later in the year for mammogram, and at that pointshe should also get a bone density done, asit has been five years. 8. Recurrent thrush. Will try Diflucan instead of Nystatin. PLAN See the patient back after the above labs or sooner if warranted. Signed by Tiara Mendez MD 07/07/2006 20:04 Luke Dukes MD Tiara Mendez MD P Job ID [id number] A/lt Doc ID [id number] cc: documented in this encounter Plan of Treatment Not on file documented as of this encounter Visit Diagnoses Not on filedocumented in this encounter Care Teams Rig Builder Relationship Specialty Start Date End Date Avel Rivera MD PCP - General 09/03/08 07/10/09 documented as of this encounter
--- OUTSIDE RECORDS SUMMARY | 2023-12-02 18:39 | XMS_ITS | Encounter Summary ---
Author Organization [facility] Address [address] [place] [address] Care Team Providers Care 4Th Grade Teacher Name Role Phone Avel Rivera MD Primary Care Provider Unav ailable Encounter Details Date Type Department Care Team (Late st Contact Info) Description 10/05/2005 Before PRISM Converted Visit (Maple) [facility] - Maple conversion [address] [place] [address] Tiara Mendez MD [phone] [place] [address] Social History Tobacco Use Types Packs/Day Years Used Date Smoking Tobacco: Never Assessed Sex and Gender Information Value Date Recorded Sex Assigned at Not on file Gender Identity Female 02/14/2022 14:15 EST Sexual Orientation Not on file documented as of this encounter Progress Notes * Alison Mishra Mechanic Sound Technician - 04/01/2009 0953 EST [facility] PROGRESS/FOLLOWUP NOTE - 10/05/2005 SUBJECTIVE: Milka comes in with several concerns. One is rosacea which has become more of a problem recently. She has never been on anything topically for it but would prefer to do that rather thantaking oral antibiotics. She has ongoing pain in the left foot which she describes as secondary to her fifth digit going underneath her fourth digit and causing her pain when she walks. Because of this pain, she has been unable to keep up with her exercise so she is gaining weight. Also wonders if the amitriptyline that she is using at night for sleep and migraine relief is contributing to her weight gain. She has been on amitriptyline for over 2 decades. The Neurontin seems to be doing okay for her paresthesias but she wonders if she should increase it to see if it would improve her sleep pattern and allow her to get rid of the amitriptyline. She has been checking her blood sugars regularly and they do look pretty good mostly in the 120 range fasting. Does not check many postprandials. OBJECTIVE: On exam blood pressure is 162/90. Recent blood pressures have been high and she had wanted to make dietary changes. Pulse is 100. Weight 164 pounds. In general, she is in no acute distress. Examination is limited to the left foot. There does appear to be the left digit wanting to move more medially impinging on the plantar aspect of the fourth digit. ASSESSMENT: PROBLEM #1: Left sided foot pain. Probably secondary to her toe placement. We discussed possibly referring her to a ships equipment engineer but she would like to wait until she is covered by Medicare to do this. In the meantime she will try to put a cotton ball between the fourth and fifth digits and put Lexy wrap around it to hold it in place as she feels that keeping the toe with probably help alleviate a lot of her problems. PROBLEM #2: Rosacea which is covered up by Dyn today. Trial of MetroGel 1% b.i.d. until clear. Explained that this will probably be an ongoing problem for her. PROBLEM #3: Diabetes. Continue with checking her blood sugars regularly and will check a [id number] at her convenience. PROBLEM #4: Hypertriglyceridemia. Check a fasting lipid panel when she does the above labs. PROBLEM #5: Weight gain. Will have her discontinue the amitriptyline and increase her Neurontin to two 100 mg tablets b.i.d. PROBLEM #6: Well care. Will schedule her for a mammogram this summer under the [facility] so she should receive this for free. Will have her come back for follow up based on her labs. Twenty-seven minutes was spent with the patient, greater than 50% of the time in counseling. Signed by Tiara Mendez MD 10/17/2005 19:19 Krishna Mendez, [facility] MD Tiara Mendez MD - Tiara Mendez MD P - jennie Job ID: [id number] Document ID: [id number] cc: documented in this encounter Plan of Treatment Not on file documented as of this encounter Visit Diagnoses Not on filedocumented in this encounter Care Teams 4Th Grade Teacher Relationship Specialty Start Date End Date Avel Rivera MD PCP - General 09/03/08 07/10/09 documented as of this encounter
--- OUTSIDE RECORDS SUMMARY | 2023-12-02 18:39 | XMS_ITS | Encounter Summary ---
Author Organization [facility] Address [address] [place] [address] Care Team Providers Care Hospitality Coordinator Name Role Phone Avel Rivera MD Primary Care Provider Unav ailable Encounter Details Date Type Department Care Team (Late st Contact Info) Description 12/12/2005 Before PRISM Converted Visit (Maple) [facility] - Maple conversion [address] [place] [address] Tiara Mendez MD [phone] [place] [address] Social History Tobacco Use Types Packs/Day Years Used Date Smoking Tobacco: Never Assessed Sex and Gender Information Value Date Recorded Sex Assigned at Not on file Gender Identity Female 02/14/2022 14:15 EST Sexual Orientation Not on file documented as of this encounter Progress Notes * Alison Mishra Sales Consultant - 04/14/2009 0817 EST [facility] PROGRESS/FOLLOWUP NOTE - 12/12/2005 S: Milka comes in for follow-up especially with worsening migraine complaint. After her last visit, she tried to taper and discontinue her Amitriptyline as we were concerned about the weight gain she was experiencing as well as her hypertension. She did increase her Neurontin to a total of 200 mgtwice a day. Had to go back on the Amitriptyline because her migraines worsened and she actually increased that to 75 mg last week with some mild improvement in her headaches. She describes them as typical migraines. They just seem to keep coming more frequently. As noted above, they do seem to be improving over the last week with the increased Amitriptyline O: On examination, blood pressure is 170/80. Pulse 96. Weight 168 pounds. In general she is in no acute distress. Ambulating under her own power. No other exam was done today. A/P: 1. Hypertension which had been controlled with no medication, but recently seems to have worsened. We discussed the possibility of starting her on the medication like a beta reva which may help with both blood pressure and migraine prophylaxis and she is in agreement Start Atenolol 50 mg one p.o. daily, #90 with refills for a year. She will keep track of her blood pressure and she will let me know how it is doing. 2. History of Migraines with increased frequency off Amitriptyline despite increased Neurontin. She had a negative CT in November 2003. Will have her continue with the increased Amitriptyline and see how the beta reva does as far asprophylaxis is concerned. Renewed her Fiorinal #60 with no refills. Signed by Tiara Mendez MD 12/20/2005 15:34 Krishna Mendez, MDDcat Mendez MD Tiara Mendez MD - Tiara Mendez MD P - prs Job ID: [id number] Document ID: [id number] cc: - Tiara Mendez MD P - prs Job ID: [id number] Document ID: [id number] cc: documented in this encounter Plan of Treatment Not on file documented as of this encounter Visit Diagnoses Not on filedocumented in this encounter Care Teams Hospitality Coordinator Relationship Specialty Start Date End Date Avel Rivera MD PCP - General 09/03/08 07/10/09 documented as of this encounter
--- OUTSIDE RECORDS SUMMARY | 2023-12-02 18:39 | XMS_ITS | Encounter Summary ---
Author Organization [facility] Address [address] [place] [address] Care Team Providers Care Product Managent Intern Name Role Phone Avel Rivera MD Primary Care Provider Unav ailable Encounter Details Date Type Department Care Team (Late st Contact Info) Description 05/22/2007 Before PRISM Converted Visit (Maple) [facility] - Maple conversion [address] [place] [address] Tiara Mendez MD [phone] [place] [phone] Social History Tobacco Use Types Packs/Day Years Used Date Smoking Tobacco: Never Assessed Sex and Gender Information Value Date Recorded Sex Assigned at Not on file Gender Identity Female 02/14/2022 14:15 EST Sexual Orientation Not on file documented as of this encounter Progress Notes * Alison Mishra Printed Circuit Boards Pinner - 02/16/2009 1242 EST [facility] PROGRESS/FOLLOWUP NOTE - 05/22/2007 ANA M Jarquin comes in to discuss her labs. She had microalbuminuria with a level of 162. We did a urinalysis today because of her history of microscopic hematuria, which showed trace of lysed blood, 2+ leukocytes, and specificgravity of less than 1.005. She denies any gross hematuria. She is feeling better after being treated for her bacterial infection. She notes that the skin of her face has improved as well sincestarting the Spectazole. We also discussed her elevated triglycerides and for this she would like to try to increasedexercise, which would also improve her HDL. She continues on Mucinexb.i.d. and still has some sinus drainage but, again, seems to be improving. OBJECTIVE On exam, blood pressure is 138/84, pulse is 80. In general, she is no acute distress. Evaluation ofthe skin reveals less thickened, reddened areas on the face. LABORATORY VALUES Urinalysis as noted above. Fasting blood sugar was 105 with an A1c of 6.3. Cholesterol panel shows a total cholesterol of 179, HDL 32, LDL 81, and triglycerides 330. Microalbumin as noted above. ASSESSMENT AND PLAN 1. Diabetes. Her A1c is acceptable although microalbumin is concerning. Her blood pressure could stand some improvement, so will add lisinopril 5 mg a day to her atenolol 50 mg a day dose. I discussed symptoms of hypotension and she will monitor for this and let me know if they occur. I would like to check a basic metabolic profile in about a month just to ensure she is not getting hyperkalemic or having renal insufficiency problems. 2. Hypertension. As noted above, we will increase her lisinopril dose. She will monitor and follow up here in about four months. 3. Hematuria. When she next does her lab work, we will get a urine for urinalysis and microscopic as well as the microalbumin. 4. Well care. This is up to date. We will follow up in about four months or sooner if warranted. Thirty minutes was spent with the patient, greater than 50% of the time in counseling. Signed by Tiara Mendez MD 06/02/2007 08:15 Tiara Mendez MD P Job ID [id number] A/[facility] Doc ID [id number] cc: documented in this encounter Plan of Treatment Not on file documented as of this encounter Visit Diagnoses Not on filedocumented in this encounter Care Teams Product Managent Intern Relationship Specialty Start Date End Date Avel Rivera MD PCP - General 09/03/08 07/10/09 documented as of this encounter
[2023-12-02 21:36] LABS: HCT 36.1 % (36.0-46.0); HGB 11.4 g/dL (11.2-15.7); MCH 30.2 pg (27.0-33.0); MCHC 31.6 % (32.0-36.0); MCV 96 fL (80-95); MPV 12.9 fL (8.0-11.0); RBC 3.78 10^6/uL (3.93-5.22); RDW 13.2 % (11.7-14.6); RDW-SD 46.3 fL; WBC 4.26 10^3/uL (4.4-10.8)
[2023-12-02 21:46] LABS: COMMENT (LAB VIEW ONLY) 72.12 mg/dL
[2023-12-02 21:48] LABS: ALT 45 U/L (14-59); AST 37 U/L (15-37); Albumin 3.5 g/dL (3.4-5.0); Alkaline Phosphatase 110 U/L (46-116); Anion Gap 6.9 mmol/L (3-11); BUN 18 mg/dL (7-18); Bilirubin, Total 0.48 mg/dL (0.2-1.0); CO2 28.1 mmol/L (21.0-32.0); CREATININE 0.9 mg/dL (0.55-1.02); Calcium 9.7 mg/dL (8.5-10.1); Chloride 103 mmol/L (98-107); Estimated GFR 63.83 (mL/min/1.73m2); Glucose 214 mg/dL (74-106); NT-proBNP 244 pg/mL (<300); Potassium 4.1 mmol/L (3.5-5.1); Sodium 138 mmol/L (136-145); Total Protein 6.9 g/dL (6.4-8.2)
[2023-12-02 21:58] LABS: Platelet Count 71 10^3/uL (130-400)
== END 2023-12-02 18:25 | disposition home or self-care (01) ==
LOC: NCHCN 18:24
PROVIDERS: PCP Nurse Practitioner Family; Visit Provider Nurse Practitioner Family
DX: K74.60 Unspecified cirrhosis of liver (principal)
CPT/HCPCS: 80053; 85027; 82043; 82570; 83880

== ENCOUNTER 2024-03-23 12:26 | Outpatient (REF) | payer MEDICARE, SELFPAY ==
--- OUTSIDE RECORDS SUMMARY | 2024-03-23 12:29 | XMS_ITS ---
Author Organization Unknown Address [address] [place] [phone] Phone Care Team Providers Care Laborer Powerhouse Name Role Phone LYNN DANIELLE Registered Nurse Unavailable NOLAN Grimaldo Attending Unavailable JORGE LUIS [facility]man [facility] Unavailable JOHN Guaman Primary Unavailable UNLISTED PROVIDER - REQUESTED Xhandoff Un available Social History Type Status Start Date End Date Code Code Syst em Smoking History Never smoker (Never Smoked) 108957957 SNOMED CT Sex Female Vital Signs Vital Sign Value Unit Routt Value Routt Unit Date/Time Recent/Initial? Code Code System Body Mass Index 25.51 kg/m2 01/02/2022 10:53 Initial 30712 -5 [facility] Systolic Blood Pressure 165 mm[Hg] 01/02/2022 10:53 Initial 8480- 6 [facility] Diastolic Blood Pressure 66 mm[Hg] 01/02/2022 10:53 Initial 8462- 4 [facility] Body Surface Area 1.62 m2 01/02/2022 10:53 Initial 3140- 1 LOINC Height 154.940 0 cm 61.00 in 01/02/2022 10:53 Initial 8302- 2 INC O2 Saturation 94 % 2021 10:53 Initial 22321 -5 [facility] Pulse 106.0 /min 01/02/2022 10:53 Initial 8867- 4 LOINC Respiration 19 /min 01/03/20 10:53 Initial 9279- 1 LOINC Temperature 35.6 Carolann 96.1 F 01/03/20 10:53 Initial 8310- 5 LOINC Weight 61.23 kg 135.00 lbs 01/02/2022 10:53 Initial 18776 -7 [facility] Medications Medication Start Date End Date Route Frequency Dose Code Code System Medication Instructions Home Meds Amitriptyline 50MG Oral Tablet 08/20/2019 01/02/2022 ORAL BEDTIME 50 MILLIGRAMS 143573 RxNorm TAKE 50 MILLIGRAMS ORAL BEDTIME Atorvastatin Calcium 20MG Oral Tablet 08/20/2019 Unknown ORAL BEDTIME 20 MILLIGRAMS 195722 RxNorm TAKE 20 MILLIGRAMS ORAL BEDTIME Fish Oil 1000MG Oral Capsule, Liquid Filled 08/20/2019 03/18/2024 ORAL DAILY 3 CAPSULE 351377 RxNorm TA KE 3 CAPSULE ORAL DAILY Gabapentin 800MG Oral Tablet 08/20/2019 03/18/2024 ORAL TWICE A DAY 1 TABLET 630961 RxNorm TAKE 1 TABLET ORAL TWICE A DAY Lisinopril 20MG Oral Tablet 08/20/2019 03/18/2024 ORAL DAILY 20 MILLIGRAMS 410510 RxNorm TAKE 20 MILLIGRAMS ORAL DAILY Loratadine 10MG Oral Tablet 08/20/2019 01/02/2022 ORAL DAILY 10 MILLIGRAMS 640595 RxNorm TAKE 10 MILLIGRAMS ORAL DAILY Multiple Vitamin Formula Oral Tablet 08/20/2019 03/18/2024 ORAL DAILY 1 unit(s) 4945454 RxNorm TAKE 1 E ACH ORAL DAILY Pramipexole Dihydrochlorid e 0.125MG Oral Tablet 08/20/2019 09/30/2023 ORAL BEDTIME 2 TABLET 885787 RxNorm TAKE 2 TABLET ORAL BEDTIME Probiotic 250MG Oral Capsule 08/20/2019 01/02/2022 ORAL DAILY 3 TABLET 190936 RxNorm TAKE 3 TABLET ORAL DAILY glipiZIDE 10MG Oral Tablet, Extended Release 08/20/2019 Unknown ORAL DAILY 10 MILLIGRAMS 615863 RxNorm TAKE 10 MILLIGRAMS ORAL DAILY metFORMIN HCl 1000MG Oral Tablet 08/20/2019 Unknown ORAL TWICE A DAY WITH FOOD 1000 MILLIGRAMS 063471 RxNorm TAKE 1000 MILLIGRAMS ORAL TWICE A DAY WITH FOOD Cephalexin 500MG Oral Tablet 08/20/2019 01/02/2022 ORAL THREE TIMES A DAY 1 TABLET 105948 RxNorm TAKE 1 TABLET ORAL THREE TIMES A DAY Keflex 500MG Oral Capsule 01/02/2022 09/30/2023 ORAL THREE TIMES A DAY 1 CAPSULE 534970 RxNorm TAKE 1 CAPSULE ORAL THREE TIMES A DAY Nystatin 715932V/1ML Oral Suspension 01/02/2022 09/30/2023 ORAL FOUR TIMES A DAY 5 mL 207959 RxNorm TAKE 5 mL ORAL FOUR TIMES A DAY Cephalexin 500MG Oral Tablet 03/17/2024 03/19/2024 ORAL TWICE A DAY 1 TABLET 001817 RxNorm TAKE 1 TABLET ORAL TWICE A DAY x 7 days Acetaminophen 500MG Oral Tablet 03/18/2024 03/18/2024 ORAL NEEDED EVERY 6 HOURS 2 TABLET 158323 RxNorm TAKE 2 TABLET (OR 3 TABLETS regular strength 325mg) ORAL EVERY 6 HOURS FOR 1-2 DAYS THEN NEEDED FOR Fever/Pain (NEXT DOSES 6AM AND 12 NOON) Ibuprofen 200MG Oral Tablet 03/18/2024 03/18/2024 ORAL EVERY 6 HOURS 2 TABLET 228258 RxNorm TAKE 2 TABLET ORAL EVERY 6 HOURS FOR 24 HOURS THEN NEEDED. (NEXT DOSES at 4AM AND 10AM) Aspirin 81MG Oral Tablet, Enteric Coated 03/19/2024 Unknown ORAL DAILY 81 MILLIGRAMS 607457 RxNorm TAKE 81 MILLIGRAMS ORAL DAILY Carvedilol 6.25MG Oral Tablet 03/19/2024 Unknown ORAL TWICE A DAY 6.25 MILLIGRAMS 19990607 RxNorm TAKE 6.25 MILLIGRAMS ORAL TWICE A DAY Fish Oil [place]-3 1000 MG Oral Capsule, Liquid Filled 03/19/2024 Unknown ORAL DAILY 1000 MG RxNorm TAKE 10 00 MG ORAL DAILY Gabapentin 600MG Oral Tablet 03/19/2024 Unknown ORAL TWICE A DAY 600 MILLIGRAMS 805843 RxNorm TAKE 600 MILLIGRAMS ORAL TWICE A DAY Lisinopril 10MG Oral Tablet 03/19/2024 Unknown ORAL DAILY 10 MILLIGRAMS 362253 RxNorm TAKE 10 MILLIGRAMS ORAL DAILY Multiple Vitamins Oral Tablet 03/19/2024 Unknown ORAL DAILY 1 unit(s) RxNorm TAKE 1 EACH ORAL DAILY Nitroglycerin 0.4MG Sublingual Tablet 03/19/2024 Unknown SUBLI NGUAL NEEDED 0.4 MILLIGRAMS 19790615 RxNorm DISSOLVE 0.4 MILLIGRAMS SUBLINGUAL NEEDED Omeprazole 40MG Oral Capsule, Delayed Release 03/19/2024 Unknown ORAL DAILY 40 MILLIGRAMS 20020517 RxNorm TAKE 40 MILLIGRAMS ORAL DAILY Pramipexole Dihydrochlorid e 0.5MG Oral Tablet 03/19/2024 Unknown ORAL BEDTIME 0.5 MILLIGRAMS 513217 RxNorm TAKE 0.5 MILLIGRAMS ORAL BEDTIME Ventolin HFA 0.09MG/1Actuat ion Inhalation Suspension 03/19/2024 Unknown INHAL ATION NEEDED EVERY 4 HOURS 2 unit(s) 295015 RxNorm 2 EACH INHALATION NEEDED EVERY 4 HOURS Victoza 6MG/1ML Subcutaneous Solution 03/19/2024 Unknown SUBCU TANEO US 1.8 MILLILITERS 600888 RxNorm INJECT 1.8 MILLILITERS SUBCUTANEOU S Cefdinir 300MG Oral Capsule 03/20/2024 Unknown ORAL TWICE A DAY 1 CAPSULE 20020712 RxNorm TAKE 1 CAPSULE ORAL TWICE A DAY STARTING 03/20/2024 Assessment You had the following problems:URINARY TRACT INFECTIONHYPOTENSIONHYPOKALEMIASEPSIS Hospital Discharge Instructions Should you have any questions prior to discharge, please contact a member of your healthcare team. If you have left the hospital and have any questions, please contact your primary care physician. 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
--- OUTSIDE RECORDS SUMMARY | 2024-03-23 12:29 | XMS_ITS ---
Author Organization Unknown Address [address] [place] [address] [phone] Phone Care Team Providers Care Plant Physiologist Name Role Phone HANSA Bear Attending Unavailable JOHN Guaman Primary Unavailable Results CULT URINE CULTURE* [facility] Date[facility]: 04/06/2021 15:43 [facility] ID: [id number] [place], [place], [id number] LOINC: 630-4 Test Value Unit Reference Range Code Code System Flag COLLECTION MODE: CLEAN CATCH URINALYSIS ROUTINE* - [facility] Date/Time: 04/06/2021 15:43 [facility] ID: [id number] [address] [place], [place], [address] LOINC: Test Value Unit Reference Range Code Code System Flag COLLECTION MODE: CLEAN CATCH Color YELLOW yellow 5778-6 LOINC Appearance HAZY clear 5767-9 LOINC Glucose urine NEGATIVE negative mg/dl 06165-0 LOINC Bilirubin NEGATIVE negative 5770-3 LOINC Ketones NEGATIVE negative mg/dl 2514-8 LOINC Spec gravity 1.025 1.003 - 1.030 5811-5 LOINC pH urine 5.5 5.0 - 7.0 2756-5 LOINC Protein NEGATIVE negative mg/dl 53372-3 LOINC Urobilinogen 0.2 <or= 1 EU/dl 23940-1 LOINC Nitrite NEGATIVE negative 5802-4 LOINC Blood TRACE-IN negative 5794-3 LOINC A Leukocytes MODERATE negative 51247-3 LOINC A MICROSCOPIC* INDICATED WBCs 25-100 0-5 / hpf 96801-2 LOINC RBCs 0-5 0-5 / hpf 37703-9 LOINC Epith cells 0-5 0-5 / hpf 45042-0 LOINC Cell types squam+trans Crystals none none Bacteria minimal none Mucus none none 8247-9 LOINC Casts none none /lpf 99200-7 LOINC Other 20042-3 LOINC Social History Type Status Start Date End Date Code Code Syst em Smoking History Never smoker (Never Smoked) 255900542 SNOMED CT Sex Female Medications Medication Start Date End Date Route Frequency Dose Code Code System Medication Instructions Home Meds Amitriptyline 50MG Oral Tablet 08/20/2019 01/02/2022 ORAL BEDTIME 50 MILLIGRAMS 936249 RxNorm TAKE 50 MILLIGRAMS ORAL BEDTIME Atorvastatin Calcium 20MG Oral Tablet 08/20/2019 Unknown ORAL BEDTIME 20 MILLIGRAMS 944624 RxNorm TAKE 20 MILLIGRAMS ORAL BEDTIME Fish Oil 1000MG Oral Capsule, Liquid Filled 08/20/2019 03/18/2024 ORAL DAILY 3 CAPSULE 804412 RxNorm TA KE 3 CAPSULE ORAL DAILY Gabapentin 800MG Oral Tablet 08/20/2019 03/18/2024 ORAL TWICE A DAY 1 TABLET 922447 RxNorm TAKE 1 TABLET ORAL TWICE A DAY Lisinopril 20MG Oral Tablet 08/20/2019 03/18/2024 ORAL DAILY 20 MILLIGRAMS 649793 RxNorm TAKE 20 MILLIGRAMS ORAL DAILY Loratadine 10MG Oral Tablet 08/20/2019 01/02/2022 ORAL DAILY 10 MILLIGRAMS 134835 RxNorm TAKE 10 MILLIGRAMS ORAL DAILY Multiple Vitamin Formula Oral Tablet 08/20/2019 03/18/2024 ORAL DAILY 1 unit(s) 7976104 RxNorm TAKE 1 E ACH ORAL DAILY Pramipexole Dihydrochlorid e 0.125MG Oral Tablet 08/20/2019 09/30/2023 ORAL BEDTIME 2 TABLET 653786 RxNorm TAKE 2 TABLET ORAL BEDTIME Probiotic 250MG Oral Capsule 08/20/2019 01/02/2022 ORAL DAILY 3 TABLET 788411 RxNorm TAKE 3 TABLET ORAL DAILY glipiZIDE 10MG Oral Tablet, Extended Release 08/20/2019 Unknown ORAL DAILY 10 MILLIGRAMS 912917 RxNorm TAKE 10 MILLIGRAMS ORAL DAILY metFORMIN HCl 1000MG Oral Tablet 08/20/2019 Unknown ORAL TWICE A DAY WITH FOOD 1000 MILLIGRAMS 060349 RxNorm TAKE 1000 MILLIGRAMS ORAL TWICE A DAY WITH FOOD Cephalexin 500MG Oral Tablet 08/20/2019 01/02/2022 ORAL THREE TIMES A DAY 1 TABLET 360917 RxNorm TAKE 1 TABLET ORAL THREE TIMES A DAY Keflex 500MG Oral Capsule 01/02/2022 09/30/2023 ORAL THREE TIMES A DAY 1 CAPSULE 587250 RxNorm TAKE 1 CAPSULE ORAL THREE TIMES A DAY Nystatin 970073P/1ML Oral Suspension 01/02/2022 09/30/2023 ORAL FOUR TIMES A DAY 5 mL 723200 RxNorm TAKE 5 mL ORAL FOUR TIMES A DAY Cephalexin 500MG Oral Tablet 03/17/2024 03/19/2024 ORAL TWICE A DAY 1 TABLET 394194 RxNorm TAKE 1 TABLET ORAL TWICE A DAY x 7 days Acetaminophen 500MG Oral Tablet 03/18/2024 03/18/2024 ORAL NEEDED EVERY 6 HOURS 2 TABLET 547104 RxNorm TAKE 2 TABLET (OR 3 TABLETS regular strength 325mg) ORAL EVERY 6 HOURS FOR 1-2 DAYS THEN NEEDED FOR Fever/Pain (NEXT DOSES 6AM AND 12 NOON) Ibuprofen 200MG Oral Tablet 03/18/2024 03/18/2024 ORAL EVERY 6 HOURS 2 TABLET 424787 RxNorm TAKE 2 TABLET ORAL EVERY 6 HOURS FOR 24 HOURS THEN NEEDED. (NEXT DOSES at 4AM AND 10AM) Aspirin 81MG Oral Tablet, Enteric Coated 03/19/2024 Unknown ORAL DAILY 81 MILLIGRAMS 146390 RxNorm TAKE 81 MILLIGRAMS ORAL DAILY Carvedilol 6.25MG Oral Tablet 03/19/2024 Unknown ORAL TWICE A DAY 6.25 MILLIGRAMS 041564 RxNorm TAKE 6.25 MILLIGRAMS ORAL TWICE A DAY Fish Oil [place]-3 1000 MG Oral Capsule, Liquid Filled 03/19/2024 Unknown ORAL DAILY 1000 MG RxNorm TAKE 10 00 MG ORAL DAILY Gabapentin 600MG Oral Tablet 03/19/2024 Unknown ORAL TWICE A DAY 600 MILLIGRAMS 959828 RxNorm TAKE 600 MILLIGRAMS ORAL TWICE A DAY Lisinopril 10MG Oral Tablet 03/19/2024 Unknown ORAL DAILY 10 MILLIGRAMS 443443 RxNorm TAKE 10 MILLIGRAMS ORAL DAILY Multiple [...] Tablet 03/19/2024 Unknown ORAL BEDTIME 0.5 MILLIGRAMS 881000 RxNorm TAKE 0.5 MILLIGRAMS ORAL BEDTIME Ventolin HFA 0.09MG/1Actuat ion Inhalation Suspension 03/19/2024 Unknown INHAL ATION NEEDED EVERY 4 HOURS 2 unit(s) 779634 RxNorm 2 EACH INHALATION NEEDED EVERY 4 HOURS Victoza 6MG/1ML Subcutaneous Solution 03/19/2024 Unknown SUBCU TANEO US 1.8 MILLILITERS 100645 RxNorm INJECT 1.8 MILLILITERS SUBCUTANEOU S Cefdinir [...] Code Code System URINARY TRACT INFECTION active 259956 05 SNOMED-CT HYPOTENSION active 58819088 SNOMED-C T HYPOKALEMIA active 30885646 SNOMED-C T SEPSIS active 97124664 SNOMED-CT CIRRHOSIS - NON-ALCOHOLIC 01/02/2022 resolved 266 430150 SNOMED-CT HTN 08/20/2019 resolved 45766827 SNOMED-CT HIGH CHOLESTEROL 10/01/2023 resolved 09649398 SN OMED-CT PERSONAL HISTORY OF BLADDER CA 08/20/2019 resolved 242104604 SNOMED-CT NON-INSULIN DEPENDENT DIABETES MELLITUS 08/20/2019 resolved 71345508 SNOMED-CT 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
--- OUTSIDE RECORDS SUMMARY | 2024-03-23 12:29 | XMS_ITS ---
Author Organization Unknown Address [address] [place] [address] [phone] Phone Care Team Providers Care Bathroom Tiling Professional Name Role Phone LYUBOVMIRA HULLMARIA R Attending Unavailable JOHN Guaman Primary Unavailable Social History Type Status Start Date End Date Code Code Syst em Smoking History Never smoker (Never Smoked) 976046451 SNOMED CT Sex Female Medications Medication Start Date End Date Route Frequency Dose Code Code System Medication Instructions Home Meds Amitriptyline 50MG Oral Tablet 08/20/2019 01/02/2022 ORAL BEDTIME 50 MILLIGRAMS 085767 RxNorm TAKE 50 MILLIGRAMS ORAL BEDTIME Atorvastatin Calcium 20MG Oral Tablet 08/20/2019 Unknown ORAL BEDTIME 20 MILLIGRAMS 677133 RxNorm TAKE 20 MILLIGRAMS ORAL BEDTIME Fish Oil 1000MG Oral Capsule, Liquid Filled 08/20/2019 03/18/2024 ORAL DAILY 3 CAPSULE 054071 RxNorm TA KE 3 CAPSULE ORAL DAILY Gabapentin 800MG Oral Tablet 08/20/2019 03/18/2024 ORAL TWICE A DAY 1 TABLET 767148 RxNorm TAKE 1 TABLET ORAL TWICE A DAY Lisinopril 20MG Oral Tablet 08/20/2019 03/18/2024 ORAL DAILY 20 MILLIGRAMS 126553 RxNorm TAKE 20 MILLIGRAMS ORAL DAILY Loratadine 10MG Oral Tablet 08/20/2019 01/02/2022 ORAL DAILY 10 MILLIGRAMS 605853 RxNorm TAKE 10 MILLIGRAMS ORAL DAILY Multiple Vitamin Formula Oral Tablet 08/20/2019 03/18/2024 ORAL DAILY 1 unit(s) 8565971 RxNorm TAKE 1 E ACH ORAL DAILY Pramipexole Dihydrochlorid e 0.125MG Oral Tablet 08/20/2019 09/30/2023 ORAL BEDTIME 2 TABLET 527789 RxNorm TAKE 2 TABLET ORAL BEDTIME Probiotic 250MG Oral Capsule 08/20/2019 01/02/2022 ORAL DAILY 3 TABLET 719866 RxNorm TAKE 3 TABLET ORAL DAILY glipiZIDE 10MG Oral Tablet, Extended Release 08/20/2019 Unknown ORAL DAILY 10 MILLIGRAMS 431893 RxNorm TAKE 10 MILLIGRAMS ORAL DAILY metFORMIN HCl 1000MG Oral Tablet 08/20/2019 Unknown ORAL TWICE A DAY WITH FOOD 1000 MILLIGRAMS 515925 RxNorm TAKE 1000 MILLIGRAMS ORAL TWICE A DAY WITH FOOD Cephalexin 500MG Oral Tablet 08/20/2019 01/02/2022 ORAL THREE TIMES A DAY 1 TABLET 016874 RxNorm TAKE 1 TABLET ORAL THREE TIMES A DAY Keflex 500MG Oral Capsule 01/02/2022 09/30/2023 ORAL THREE TIMES A DAY 1 CAPSULE 550619 RxNorm TAKE 1 CAPSULE ORAL THREE TIMES A DAY Nystatin 729299D/1ML Oral Suspension 01/02/2022 09/30/2023 ORAL FOUR TIMES A DAY 5 mL 337707 RxNorm TAKE 5 mL ORAL FOUR TIMES A DAY Cephalexin 500MG Oral Tablet 03/17/2024 03/19/2024 ORAL TWICE A DAY 1 TABLET 032596 RxNorm TAKE 1 TABLET ORAL TWICE A DAY x 7 days Acetaminophen 500MG Oral Tablet 03/18/2024 03/18/2024 ORAL NEEDED EVERY 6 HOURS 2 TABLET 159573 RxNorm TAKE 2 TABLET (OR 3 TABLETS regular strength 325mg) ORAL EVERY 6 HOURS FOR 1-2 DAYS THEN NEEDED FOR Fever/Pain (NEXT DOSES 6AM AND 12 NOON) Ibuprofen 200MG Oral Tablet 03/18/2024 03/18/2024 ORAL EVERY 6 HOURS 2 TABLET 755872 RxNorm TAKE 2 TABLET ORAL EVERY 6 HOURS FOR 24 HOURS THEN NEEDED. (NEXT DOSES at 4AM AND 10AM) Aspirin 81MG Oral Tablet, Enteric Coated 03/19/2024 Unknown ORAL DAILY 81 MILLIGRAMS 150403 RxNorm TAKE 81 MILLIGRAMS ORAL DAILY Carvedilol 6.25MG Oral Tablet 03/19/2024 Unknown ORAL TWICE A DAY 6.25 MILLIGRAMS 692702 RxNorm TAKE 6.25 MILLIGRAMS ORAL TWICE A DAY Fish Oil [place]-3 1000 MG Oral Capsule, Liquid Filled 03/19/2024 Unknown ORAL DAILY 1000 MG RxNorm TAKE 10 00 MG ORAL DAILY Gabapentin 600MG Oral Tablet 03/19/2024 Unknown ORAL TWICE A DAY 600 MILLIGRAMS 788239 RxNorm TAKE 600 MILLIGRAMS ORAL TWICE A DAY Lisinopril 10MG Oral Tablet 03/19/2024 Unknown ORAL DAILY 10 MILLIGRAMS 510529 RxNorm TAKE 10 MILLIGRAMS ORAL DAILY Multiple [...] Tablet 03/19/2024 Unknown ORAL BEDTIME 0.5 MILLIGRAMS 138667 RxNorm TAKE 0.5 MILLIGRAMS ORAL BEDTIME Ventolin HFA 0.09MG/1Actuat ion Inhalation Suspension 03/19/2024 Unknown INHAL ATION NEEDED EVERY 4 HOURS 2 unit(s) 629337 RxNorm 2 EACH INHALATION NEEDED EVERY 4 HOURS Victoza 6MG/1ML Subcutaneous Solution 03/19/2024 Unknown SUBCU TANEO US 1.8 MILLILITERS 892267 RxNorm INJECT 1.8 MILLILITERS SUBCUTANEOU S Cefdinir [...] Code Code System URINARY TRACT INFECTION active 543798 05 SNOMED-CT HYPOTENSION active 82656403 SNOMED-C T HYPOKALEMIA active 35400584 SNOMED-C T SEPSIS active 53036638 SNOMED-CT CIRRHOSIS - NON-ALCOHOLIC 01/02/2022 resolved 266 612190 SNOMED-CT HTN 08/20/2019 resolved 45944091 SNOMED-CT HIGH CHOLESTEROL 10/01/2023 resolved 93643898 SN OMED-CT PERSONAL HISTORY OF BLADDER CA 08/20/2019 resolved 738428524 SNOMED-CT NON-INSULIN DEPENDENT DIABETES MELLITUS 08/20/2019 resolved 41122844 SNOMED-CT 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
--- OUTSIDE RECORDS SUMMARY | 2024-03-23 12:30 | XMS_ITS ---
Author Organization Unknown Address [address] [place] [address] [phone] Phone Care Team Providers Care Package Line Relief Operator Name Role Phone ERAN Viera Attending Unavailable Results XR CHEST 2V PA AND LATERAL - Completed: 03/19/2023 20:46 LOINC: [facility] [place], [place] [address] PACS LOG RIDER REPORT Patient Name: NICK MENDIETA MRN: Sex: : Age: [id number] F [id number] Account: Accession: Admit: StayType: [id number] 03/19/2023 O/P Ordered: Order ID: Submitted: Ordering Provider: 03/19/2023 09:53 [id number] RUPAL FREY Completed: Technologist: Resulted: 03/19/2023 09:53 [...] em Smoking History Never smoker (Never Smoked) [id number] SNOMED CT Sex Female Medications Medication Start Date End Date Route Frequency Dose Code Code System Medication Instructions Home Meds Atorvastatin Calcium 20MG Oral Tablet 08/20/2019 Unknown ORAL BEDTIME 20 MILLIGRAMS 737971 RxNorm TAKE 20 MILLIGRAMS ORAL BEDTIME Fish Oil 1000MG Oral Capsule, Liquid Filled 08/20/2019 03/18/20 24 ORAL DAILY 3 CAPSULE 933678 RxNorm TAKE 3 CAPSULE ORAL DAILY Gabapentin 800MG Oral Tablet 08/20/2019 03/18/20 24 ORAL TWICE A DAY 1 TABLET 156698 RxNorm TAKE 1 TABLET ORAL TWICE A DAY Lisinopril 20MG Oral Tablet 08/20/2019 03/18/20 24 ORAL DAILY 20 MILLIGRAMS 557683 RxNorm TAKE 20 MILLIGRAMS ORAL DAILY Multiple Vitamin Formula Oral Tablet 08/20/2019 03/18/20 24 ORAL DAILY 1 unit(s) 3291315 RxNorm TAKE 1 EACH ORAL DAILY Pramipexole Dihydrochlorid e 0.125MG Oral Tablet 08/20/2019 09/30/19 24 ORAL BEDTIME 2 TABLET 129481 RxNorm TAKE 2 TABLET ORAL BEDTIME glipiZIDE 10MG Oral Tablet, Extended Release 08/20/2019 Unknown ORAL DAILY 10 MILLIGRAMS 942413 RxNorm TAKE 10 MILLIGRAMS ORAL DAILY metFORMIN HCl 1000MG Oral Tablet 08/20/2019 Unknown ORAL TWICE A DAY WITH FOOD 1000 MILLIGRAMS 640985 RxNorm TAKE 1000 MILLIGRAMS ORAL TWICE A DAY WITH FOOD Keflex 500MG Oral Capsule 01/02/2022 09/30/19 24 ORAL THREE TIMES A DAY 1 CAPSULE 944901 RxNorm TAKE 1 CAPSULE ORAL THREE TIMES A DAY Nystatin 080393J/1ML Oral Suspension 01/02/2022 09/30/19 24 ORAL FOUR TIMES A DAY 5 mL 896279 RxNorm TAKE 5 mL ORAL FOUR TIMES A DAY Cephalexin 500MG Oral Tablet 03/17/2024 03/19/20 24 ORAL TWICE A DAY 1 TABLET 232174 RxNorm TAKE 1 TABLET ORAL TWICE A DAY x 7 days Acetaminophen 500MG Oral Tablet 03/18/2024 03/18/20 24 ORAL NEEDED EVERY 6 HOURS 2 TABLET 161569 RxNorm TAKE 2 TABLET (OR 3 TABLETS regular strength 325mg) ORAL EVERY 6 HOURS FOR 1-2 DAYS THEN NEEDED FOR Fever/Pain (NEXT DOSES 6AM AND 12 NOON) Ibuprofen 200MG Oral Tablet 03/18/2024 03/18/20 24 ORAL EVERY 6 HOURS 2 TABLET 672449 RxNorm TAKE 2 TABLET ORAL EVERY 6 HOURS FOR 24 HOURS THEN NEEDED. (NEXT DOSES at 4AM AND 10AM) Aspirin 81MG Oral Tablet, Enteric Coated 03/19/2024 Unknown ORAL DAILY 81 MILLIGRAMS 299044 RxNorm TAKE 81 MILLIGRAMS ORAL DAILY Carvedilol 6.25MG Oral Tablet 03/19/2024 Unknown ORAL TWICE A DAY 6.25 MILLIGRAMS 19990607 RxNorm TAKE 6.25 MILLIGRAMS ORAL TWICE A DAY Fish Oil [place]-3 1000 MG Oral Capsule, Liquid Filled 03/19/2024 Unknown ORAL DAILY 1000 MG RxNorm TAKE 10 00 MG ORAL DAILY Gabapentin 600MG Oral Tablet 03/19/2024 Unknown ORAL TWICE A DAY 600 MILLIGRAMS 861952 RxNorm TAKE 600 MILLIGRAMS ORAL TWICE A DAY Lisinopril 10MG Oral Tablet 03/19/2024 Unknown ORAL DAILY 10 MILLIGRAMS 473693 RxNorm TAKE 10 MILLIGRAMS ORAL DAILY Multiple Vitamins Oral Tablet 03/19/2024 Unknown ORAL DAILY 1 unit(s) RxNorm TAKE 1 EACH ORAL DAILY Nitroglycerin 0.4MG Sublingual Tablet 03/19/2024 Unknown SUBLIN GUAL NEEDED 0.4 MILLIGRAMS 758419 RxNorm DISSOLVE 0.4 MILLIGRAMS SUBLINGUAL NEEDED Omeprazole 40MG Oral Capsule, Delayed Release 03/19/2024 Unknown ORAL DAILY 40 MILLIGRAMS 20020517 RxNorm TAKE 40 MILLIGRAMS ORAL DAILY Pramipexole Dihydrochlorid e 0.5MG Oral Tablet 03/19/2024 Unknown ORAL BEDTIME 0.5 MILLIGRAMS 174694 RxNorm TAKE 0.5 MILLIGRAMS ORAL BEDTIME Ventolin HFA 0.09MG/1Actuat ion Inhalation Suspension 03/19/2024 Unknown INHALA TION NEEDED EVERY 4 HOURS 2 unit(s) 227569 RxNorm 2 EACH INHALATION NEEDED EVERY 4 HOURS Victoza 6MG/1ML Subcutaneous Solution 03/19/2024 Unknown SUBCUT ANEOUS 1.8 MILLILITERS 050835 RxNorm INJECT 1.8 MILLILITERS SUBCUTANEOU S Cefdinir [...] Code Code System URINARY TRACT INFECTION active 648023 05 SNOMED-CT HYPOTENSION active 75771835 SNOMED-C T HYPOKALEMIA active 00623367 SNOMED-C T SEPSIS active 52087059 SNOMED-CT CIRRHOSIS - NON-ALCOHOLIC 01/02/2022 resolved 266 073176 SNOMED-CT HTN 08/20/2019 resolved 92273114 SNOMED-CT HIGH CHOLESTEROL 10/01/2023 resolved 92475180 SN OMED-CT PERSONAL HISTORY OF BLADDER CA 08/20/2019 resolved 611883642 SNOMED-CT NON-INSULIN DEPENDENT DIABETES MELLITUS 08/20/2019 resolved 83447550 SNOMED-CT 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
--- OUTSIDE RECORDS SUMMARY | 2024-03-23 12:30 | XMS_ITS ---
Author Organization Unknown Address [address] [place] [address] [phone] Phone Care Team Providers Care Inspector Salvage Name Role Phone TYSON Waller Attending Unavailable ERAN Viera Primary Unavailable Social History Type Status Start Date End Date Code Code Syst em Smoking History Never smoker (Never Smoked) 383620315 SNOMED CT Sex Female Medications Medication Start Date End Date Route Frequency Dose Code Code System Medication Instructions Home Meds Atorvastatin Calcium 20MG Oral Tablet 08/20/2019 Unknown ORAL BEDTIME 20 MILLIGRAMS 397016 RxNorm TAKE 20 MILLIGRAMS ORAL BEDTIME Fish Oil 1000MG Oral Capsule, Liquid Filled 08/20/2019 03/18/20 24 ORAL DAILY 3 CAPSULE 906563 RxNorm TAKE 3 CAPSULE ORAL DAILY Gabapentin 800MG Oral Tablet 08/20/2019 03/18/20 24 ORAL TWICE A DAY 1 TABLET 753533 RxNorm TAKE 1 TABLET ORAL TWICE A DAY Lisinopril 20MG Oral Tablet 08/20/2019 03/18/20 24 ORAL DAILY 20 MILLIGRAMS 787148 RxNorm TAKE 20 MILLIGRAMS ORAL DAILY Multiple Vitamin Formula Oral Tablet 08/20/2019 03/18/20 24 ORAL DAILY 1 unit(s) 7751292 RxNorm TAKE 1 EACH ORAL DAILY Pramipexole Dihydrochlorid e 0.125MG Oral Tablet 08/20/2019 09/30/19 24 ORAL BEDTIME 2 TABLET 243331 RxNorm TAKE 2 TABLET ORAL BEDTIME glipiZIDE 10MG Oral Tablet, Extended Release 08/20/2019 Unknown ORAL DAILY 10 MILLIGRAMS 225864 RxNorm TAKE 10 MILLIGRAMS ORAL DAILY metFORMIN HCl 1000MG Oral Tablet 08/20/2019 Unknown ORAL TWICE A DAY WITH FOOD 1000 MILLIGRAMS 759939 RxNorm TAKE 1000 MILLIGRAMS ORAL TWICE A DAY WITH FOOD Keflex 500MG Oral Capsule 01/02/2022 09/30/19 24 ORAL THREE TIMES A DAY 1 CAPSULE 633667 RxNorm TAKE 1 CAPSULE ORAL THREE TIMES A DAY Nystatin 846278W/1ML Oral Suspension 01/02/2022 09/30/19 24 ORAL FOUR TIMES A DAY 5 mL 224910 RxNorm TAKE 5 mL ORAL FOUR TIMES A DAY Cephalexin 500MG Oral Tablet 03/17/2024 03/19/20 24 ORAL TWICE A DAY 1 TABLET 163256 RxNorm TAKE 1 TABLET ORAL TWICE A DAY x 7 days Acetaminophen 500MG Oral Tablet 03/18/2024 03/18/20 24 ORAL NEEDED EVERY 6 HOURS 2 TABLET 586282 RxNorm TAKE 2 TABLET (OR 3 TABLETS regular strength 325mg) ORAL EVERY 6 HOURS FOR 1-2 DAYS THEN NEEDED FOR Fever/Pain (NEXT DOSES 6AM AND 12 NOON) Ibuprofen 200MG Oral Tablet 03/18/2024 03/18/20 24 ORAL EVERY 6 HOURS 2 TABLET 139969 RxNorm TAKE 2 TABLET ORAL EVERY 6 HOURS FOR 24 HOURS THEN NEEDED. (NEXT DOSES at 4AM AND 10AM) Aspirin 81MG Oral Tablet, Enteric Coated 03/19/2024 Unknown ORAL DAILY 81 MILLIGRAMS 923643 RxNorm TAKE 81 MILLIGRAMS ORAL DAILY Carvedilol 6.25MG Oral Tablet 03/19/2024 Unknown ORAL TWICE A DAY 6.25 MILLIGRAMS 19990607 RxNorm TAKE 6.25 MILLIGRAMS ORAL TWICE A DAY Fish Oil [place]-3 1000 MG Oral Capsule, Liquid Filled 03/19/2024 Unknown ORAL DAILY 1000 MG RxNorm TAKE 10 00 MG ORAL DAILY Gabapentin 600MG Oral Tablet 03/19/2024 Unknown ORAL TWICE A DAY 600 MILLIGRAMS 555660 RxNorm TAKE 600 MILLIGRAMS ORAL TWICE A DAY Lisinopril 10MG Oral Tablet 03/19/2024 Unknown ORAL DAILY 10 MILLIGRAMS 906891 RxNorm TAKE 10 MILLIGRAMS ORAL DAILY Multiple Vitamins Oral Tablet 03/19/2024 Unknown ORAL DAILY 1 unit(s) RxNorm TAKE 1 EACH ORAL DAILY Nitroglycerin 0.4MG Sublingual Tablet 03/19/2024 Unknown SUBLIN GUAL NEEDED 0.4 MILLIGRAMS 19790615 RxNorm DISSOLVE 0.4 MILLIGRAMS SUBLINGUAL NEEDED Omeprazole 40MG Oral Capsule, Delayed Release 03/19/2024 Unknown ORAL DAILY 40 MILLIGRAMS 673138 RxNorm TAKE 40 MILLIGRAMS ORAL DAILY Pramipexole Dihydrochlorid e 0.5MG Oral Tablet 03/19/2024 Unknown ORAL BEDTIME 0.5 MILLIGRAMS 486196 RxNorm TAKE 0.5 MILLIGRAMS ORAL BEDTIME Ventolin HFA 0.09MG/1Actuat ion Inhalation Suspension 03/19/2024 Unknown INHALA TION NEEDED EVERY 4 HOURS 2 unit(s) 021756 RxNorm 2 EACH INHALATION NEEDED EVERY 4 HOURS Victoza 6MG/1ML Subcutaneous Solution 03/19/2024 Unknown SUBCUT ANEOUS 1.8 MILLILITERS 286536 RxNorm INJECT 1.8 MILLILITERS SUBCUTANEOU S Cefdinir [...] Code Code System URINARY TRACT INFECTION active 234712 05 SNOMED-CT HYPOTENSION active 58766900 SNOMED-C T HYPOKALEMIA active 07244517 SNOMED-C T SEPSIS active 30385894 SNOMED-CT CIRRHOSIS - NON-ALCOHOLIC 01/02/2022 resolved 266 508318 SNOMED-CT HTN 08/20/2019 resolved 64896459 SNOMED-CT HIGH CHOLESTEROL 10/01/2023 resolved 81845630 SN OMED-CT PERSONAL HISTORY OF BLADDER CA 08/20/2019 resolved 206330678 SNOMED-CT NON-INSULIN DEPENDENT DIABETES MELLITUS 08/20/2019 resolved 42330215 SNOMED-CT 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
--- OUTSIDE RECORDS SUMMARY | 2024-03-23 12:30 | XMS_ITS ---
Author Organization Unknown Address [address] [place] [phone] Phone Care Team Providers Care Plastics Fitter Name Role Phone ERAN Viera Attending Unavailable Results XR CHEST 2V PA AND LATERAL - Completed: 11/27/2022 14:20 LOINC: [facility] [place], [place] [address] PACS SALES AND SERVICE SPECIALIST REPORT Patient Name: NICK MENDIETA MRN: Sex: : Age: [id number] F 1940 82 Account: Accession: Admit: StayType: [id number] 11/27/2022 O/P Ordered: Order ID: Submitted: Ordering Provider: 11/27/2022 14:03 [id number] KT RUPAL BARILLAS Completed: Technologist: Resulted: 11/27/2022 14:20 [facility] 11/27/2022 14:47 Study Description: XR CHEST 2V [...] em Smoking History Never smoker (Never Smoked) [id number] SNOMED CT Sex Female Medications Medication Start Date End Date Route Frequency Dose Code Code System Medication Instructions Home Meds Atorvastatin Calcium 20MG Oral Tablet 08/20/2019 Unknown ORAL BEDTIME 20 MILLIGRAMS 358110 RxNorm TAKE 20 MILLIGRAMS ORAL BEDTIME Fish Oil 1000MG Oral Capsule, Liquid Filled 08/20/2019 03/18/20 24 ORAL DAILY 3 CAPSULE 700018 RxNorm TAKE 3 CAPSULE ORAL DAILY Gabapentin 800MG Oral Tablet 08/20/2019 03/18/20 24 ORAL TWICE A DAY 1 TABLET 059440 RxNorm TAKE 1 TABLET ORAL TWICE A DAY Lisinopril 20MG Oral Tablet 08/20/2019 03/18/20 24 ORAL DAILY 20 MILLIGRAMS 459341 RxNorm TAKE 20 MILLIGRAMS ORAL DAILY Multiple Vitamin Formula Oral Tablet 08/20/2019 03/18/20 24 ORAL DAILY 1 unit(s) 2446533 RxNorm TAKE 1 EACH ORAL DAILY Pramipexole Dihydrochlorid e 0.125MG Oral Tablet 08/20/2019 09/30/19 24 ORAL BEDTIME 2 TABLET 248710 RxNorm TAKE 2 TABLET ORAL BEDTIME glipiZIDE 10MG Oral Tablet, Extended Release 08/20/2019 Unknown ORAL DAILY 10 MILLIGRAMS 413340 RxNorm TAKE 10 MILLIGRAMS ORAL DAILY metFORMIN HCl 1000MG Oral Tablet 08/20/2019 Unknown ORAL TWICE A DAY WITH FOOD 1000 MILLIGRAMS 929103 RxNorm TAKE 1000 MILLIGRAMS ORAL TWICE A DAY WITH FOOD Keflex 500MG Oral Capsule 01/02/2022 09/30/19 24 ORAL THREE TIMES A DAY 1 CAPSULE 642777 RxNorm TAKE 1 CAPSULE ORAL THREE TIMES A DAY Nystatin 741106C/1ML Oral Suspension 01/02/2022 09/30/19 24 ORAL FOUR TIMES A DAY 5 mL 029897 RxNorm TAKE 5 mL ORAL FOUR TIMES A DAY Cephalexin 500MG Oral Tablet 03/17/2024 03/19/20 24 ORAL TWICE A DAY 1 TABLET 901387 RxNorm TAKE 1 TABLET ORAL TWICE A DAY x 7 days Acetaminophen 500MG Oral Tablet 03/18/2024 03/18/20 24 ORAL NEEDED EVERY 6 HOURS 2 TABLET 362012 RxNorm TAKE 2 TABLET (OR 3 TABLETS regular strength 325mg) ORAL EVERY 6 HOURS FOR 1-2 DAYS THEN NEEDED FOR Fever/Pain (NEXT DOSES 6AM AND 12 NOON) Ibuprofen 200MG Oral Tablet 03/18/2024 03/18/20 24 ORAL EVERY 6 HOURS 2 TABLET 696699 RxNorm TAKE 2 TABLET ORAL EVERY 6 HOURS FOR 24 HOURS THEN NEEDED. (NEXT DOSES at 4AM AND 10AM) Aspirin 81MG Oral Tablet, Enteric Coated 03/19/2024 Unknown ORAL DAILY 81 MILLIGRAMS 765178 RxNorm TAKE 81 MILLIGRAMS ORAL DAILY Carvedilol 6.25MG Oral Tablet 03/19/2024 Unknown ORAL TWICE A DAY 6.25 MILLIGRAMS 19990607 RxNorm TAKE 6.25 MILLIGRAMS ORAL TWICE A DAY Fish Oil [place]-3 1000 MG Oral Capsule, Liquid Filled 03/19/2024 Unknown ORAL DAILY 1000 MG RxNorm TAKE 10 00 MG ORAL DAILY Gabapentin 600MG Oral Tablet 03/19/2024 Unknown ORAL TWICE A DAY 600 MILLIGRAMS 958557 RxNorm TAKE 600 MILLIGRAMS ORAL TWICE A DAY Lisinopril 10MG Oral Tablet 03/19/2024 Unknown ORAL DAILY 10 MILLIGRAMS 322802 RxNorm TAKE 10 MILLIGRAMS ORAL DAILY Multiple Vitamins Oral Tablet 03/19/2024 Unknown ORAL DAILY 1 unit(s) RxNorm TAKE 1 EACH ORAL DAILY Nitroglycerin 0.4MG Sublingual Tablet 03/19/2024 Unknown SUBLIN GUAL NEEDED 0.4 MILLIGRAMS 710652 RxNorm DISSOLVE 0.4 MILLIGRAMS SUBLINGUAL NEEDED Omeprazole 40MG Oral Capsule, Delayed Release 03/19/2024 Unknown ORAL DAILY 40 MILLIGRAMS 20020517 RxNorm TAKE 40 MILLIGRAMS ORAL DAILY Pramipexole Dihydrochlorid e 0.5MG Oral Tablet 03/19/2024 Unknown ORAL BEDTIME 0.5 MILLIGRAMS 814082 RxNorm TAKE 0.5 MILLIGRAMS ORAL BEDTIME Ventolin HFA 0.09MG/1Actuat ion Inhalation Suspension 03/19/2024 Unknown INHALA TION NEEDED EVERY 4 HOURS 2 unit(s) 743172 RxNorm 2 EACH INHALATION NEEDED EVERY 4 HOURS Victoza 6MG/1ML Subcutaneous Solution 03/19/2024 Unknown SUBCUT ANEOUS 1.8 MILLILITERS 766523 RxNorm INJECT 1.8 MILLILITERS SUBCUTANEOU S Cefdinir [...] Code Code System URINARY TRACT INFECTION active 774527 05 SNOMED-CT HYPOTENSION active 04469171 SNOMED-C T HYPOKALEMIA active 64916665 SNOMED-C T SEPSIS active 25173122 SNOMED-CT CIRRHOSIS - NON-ALCOHOLIC 01/02/2022 resolved 266 265974 SNOMED-CT HTN 08/20/2019 resolved 57402200 SNOMED-CT HIGH CHOLESTEROL 10/01/2023 resolved 73516983 SN OMED-CT PERSONAL HISTORY OF BLADDER CA 08/20/2019 resolved 143244708 SNOMED-CT NON-INSULIN DEPENDENT DIABETES MELLITUS 08/20/2019 resolved 16108913 SNOMED-CT 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
--- OUTSIDE RECORDS SUMMARY | 2024-03-23 12:31 | XMS_ITS ---
Author Organization Unknown Address [address] [place] [phone] Phone Care Team Providers Care Hydraulic Specialist Name Role Phone LYNN VILLEDA Attending Unavailable ERAN Viera Primary Unavailable Results NM MPI COMPLETE - Completed: 05/15/2023 15:43 LOINC: [place], [place] [address] PACS ALUMINUM POURER REPORT Patient Name: NICK MENDIETA MRN: Sex: : Age: [id number] F 1940 82 Account: Accession: Admit: StayType: [id number] 05/15/2023 CLINIC Ordered: Order ID: Submitted: Ordering Provider: 05/15/2023 14:10 [id number] HTP CHRISTIANA BAILEY Completed: Technologist: Resulted: 05/15/2023 15:43 HTP 05/15/2023 16:13 Exercise Nuclear Stress Test Date: 05/15/2023 02:18 PM EST Ordering Provider: CHRISTIANA BAILEY Referring Provider: CHRISTIANA BAILEY ID number: [id number] Date of : 1940 Age: 82Y Indication [...] em Smoking History Never smoker (Never Smoked) [id number] SNOMED CT Sex Female Medications Medication Start Date End Date Route Frequency Dose Code Code System Medication Instructions Home Meds Atorvastatin Calcium 20MG Oral Tablet 08/20/2019 Unknown ORAL BEDTIME 20 MILLIGRAMS 506624 RxNorm TAKE 20 MILLIGRAMS ORAL BEDTIME Fish Oil 1000MG Oral Capsule, Liquid Filled 08/20/2019 03/18/20 24 ORAL DAILY 3 CAPSULE 587492 RxNorm TAKE 3 CAPSULE ORAL DAILY Gabapentin 800MG Oral Tablet 08/20/2019 03/18/20 24 ORAL TWICE A DAY 1 TABLET 368291 RxNorm TAKE 1 TABLET ORAL TWICE A DAY Lisinopril 20MG Oral Tablet 08/20/2019 03/18/20 24 ORAL DAILY 20 MILLIGRAMS 968182 RxNorm TAKE 20 MILLIGRAMS ORAL DAILY Multiple Vitamin Formula Oral Tablet 08/20/2019 03/18/20 24 ORAL DAILY 1 unit(s) 3425384 RxNorm TAKE 1 EACH ORAL DAILY Pramipexole Dihydrochlorid e 0.125MG Oral Tablet 08/20/2019 09/30/19 24 ORAL BEDTIME 2 TABLET 020287 RxNorm TAKE 2 TABLET ORAL BEDTIME glipiZIDE 10MG Oral Tablet, Extended Release 08/20/2019 Unknown ORAL DAILY 10 MILLIGRAMS 374917 RxNorm TAKE 10 MILLIGRAMS ORAL DAILY metFORMIN HCl 1000MG Oral Tablet 08/20/2019 Unknown ORAL TWICE A DAY WITH FOOD 1000 MILLIGRAMS 199507 RxNorm TAKE 1000 MILLIGRAMS ORAL TWICE A DAY WITH FOOD Keflex 500MG Oral Capsule 01/02/2022 09/30/19 24 ORAL THREE TIMES A DAY 1 CAPSULE 796055 RxNorm TAKE 1 CAPSULE ORAL THREE TIMES A DAY Nystatin 680688A/1ML Oral Suspension 01/02/2022 09/30/19 24 ORAL FOUR TIMES A DAY 5 mL 765112 RxNorm TAKE 5 mL ORAL FOUR TIMES A DAY Cephalexin 500MG Oral Tablet 03/17/2024 03/19/20 24 ORAL TWICE A DAY 1 TABLET 772293 RxNorm TAKE 1 TABLET ORAL TWICE A DAY x 7 days Acetaminophen 500MG Oral Tablet 03/18/2024 03/18/20 24 ORAL NEEDED EVERY 6 HOURS 2 TABLET 984336 RxNorm TAKE 2 TABLET (OR 3 TABLETS regular strength 325mg) ORAL EVERY 6 HOURS FOR 1-2 DAYS THEN NEEDED FOR Fever/Pain (NEXT DOSES 6AM AND 12 NOON) Ibuprofen 200MG Oral Tablet 03/18/2024 03/18/20 24 ORAL EVERY 6 HOURS 2 TABLET 628936 RxNorm TAKE 2 TABLET ORAL EVERY 6 HOURS FOR 24 HOURS THEN NEEDED. (NEXT DOSES at 4AM AND 10AM) Aspirin 81MG Oral Tablet, Enteric Coated 03/19/2024 Unknown ORAL DAILY 81 MILLIGRAMS 106315 RxNorm TAKE 81 MILLIGRAMS ORAL DAILY Carvedilol 6.25MG Oral Tablet 03/19/2024 Unknown ORAL TWICE A DAY 6.25 MILLIGRAMS 002998 RxNorm TAKE 6.25 MILLIGRAMS ORAL TWICE A DAY Fish Oil [place]-3 1000 MG Oral Capsule, Liquid Filled 03/19/2024 Unknown ORAL DAILY 1000 MG RxNorm TAKE 10 00 MG ORAL DAILY Gabapentin 600MG Oral Tablet 03/19/2024 Unknown ORAL TWICE A DAY 600 MILLIGRAMS 100033 RxNorm TAKE 600 MILLIGRAMS ORAL TWICE A DAY Lisinopril 10MG Oral Tablet 03/19/2024 Unknown ORAL DAILY 10 MILLIGRAMS 759270 RxNorm TAKE 10 MILLIGRAMS ORAL DAILY Multiple [...] Tablet 03/19/2024 Unknown ORAL BEDTIME 0.5 MILLIGRAMS 235629 RxNorm TAKE 0.5 MILLIGRAMS ORAL BEDTIME Ventolin HFA 0.09MG/1Actuat ion Inhalation Suspension 03/19/2024 Unknown INHALA TION NEEDED EVERY 4 HOURS 2 unit(s) 034717 RxNorm 2 EACH INHALATION NEEDED EVERY 4 HOURS Victoza 6MG/1ML Subcutaneous Solution 03/19/2024 Unknown SUBCUT ANEOUS 1.8 MILLILITERS 167502 RxNorm INJECT 1.8 MILLILITERS SUBCUTANEOU S Cefdinir [...] Code Code System URINARY TRACT INFECTION active 249521 05 SNOMED-CT HYPOTENSION active 78661128 SNOMED-C T HYPOKALEMIA active 99012158 SNOMED-C T SEPSIS active 51277390 SNOMED-CT CIRRHOSIS - NON-ALCOHOLIC 01/02/2022 resolved 266 531867 SNOMED-CT HTN 08/20/2019 resolved 10720539 SNOMED-CT HIGH CHOLESTEROL 10/01/2023 resolved 28680341 SN OMED-CT PERSONAL HISTORY OF BLADDER CA 08/20/2019 resolved 830837665 SNOMED-CT NON-INSULIN DEPENDENT DIABETES MELLITUS 08/20/2019 resolved 11732268 SNOMED-CT 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
--- OUTSIDE RECORDS SUMMARY | 2024-03-23 12:31 | XMS_ITS ---
Author Organization Unknown Address [address] [place] [address] [phone] Phone Care Team Providers Care High Risk Ob Name Role Phone KSENIA Gallo Attending Unavailable ERAN Viera Primary Unavailable Results BNP (PRO-B NATRIURETIC PEPTI DE) - Collect Date/Time: 05/06/2023 11:05 [facility] ID: [id number] [address] [place] [address], [address] LOINC: 21735-7 Test Value Unit Reference Range Code Code System Flag NT-proBNP 63.0 pg/mL L=0.0 H=450 24021-9 LOINC TROPONIN HIGH SENSITIVITY* - Collect Date/Time: 05/06/2023 11:05 [facility] ID: [id number] [address] [place] [address], [address] LOINC: 49619-1 Test Value Unit Reference Range Code Code System Flag TROPONIN HS 4.8 pg/mL L=0.0 H=60.4 Specimen seq. RANDOM TSH THYROID STIMULATING HORM ONE* - Collect Date/Time: 05/06/2023 11:05 [facility] ID: [id number] [address] [place] [address], [address] LOINC: 3014-8 Test Value Unit Reference Range Code Code System Flag TSH 1.873 uIU/mL L=0.360 H=3.740 3014-8 LOINC HEPATIC FUNCTION PANEL - Col lect Date/Time: 05/06/2023 11:05 [facility] ID: [id number] [address] [place] [address], [id number] LOINC: 20898-7 Test Value Unit Reference Range Code Code [...] PANEL* - Collect Date/ Time: 05/06/2023 11:05 [facility] ID: [id number] [address] [place], [place], [phone] LOINC: Test Value Unit Reference Range Code Code System Flag FASTING STATUS: NOT KNOWN CHOLESTEROL 102 mg/dL L=0 H=200 2093-3 LOINC TRIGLYCERIDES 134 mg/dL L=57 H=256 2571-8 LOINC HDL 42 mg/dL L=38 H=92 2085-9 LOINC non-HDL-C 60 mg/dL L=0 H=160 78765-0 LOINC LDL (CALC) 33 mg/dL L=0 H=130 13481-4 LOINC % HDL 41.2 % Chol/HDL Ratio 2.4 L=0.0 H=4.4 9830-1 LOINC CHD Relative Risk 0.5 x Avg L=0.0 H=1.0 LDL/HDL Ratio 0.8 L=0.0 H=3.2 71103-7 LOINC CHD Relative Risk. 0.2 x Avg L=0.0 H=1.0 CBC W/ DIFFERENTIAL* - Colle ct Date/Time: 05/06/2023 11:05 [facility] ID: [id number] [address] [place] [address], [place], [address] LOINC: 16830-4 Test Value Unit Reference Range Code Code System Flag WBC 4.65 th/cmm L=5.00 H=10.00 6690-2 LOINC L NEUT % 64.5 % L=40.0 H=80.0 LYMPH % 20.0 % L=10.0 H=50.0 MONO % 12.3 % L=2.0 H=12.0 89416-7 LOINC H EOS % 2.6 % L=0.0 H=8.0 BASO % 0.4 % L=0.0 H=3.0 IG % 0.2 % L=0.0 H=1.1 2514-8 LOINC NRBC % 0.0 % L=0.0 H=0.0 51670-7 LOINC NEUT abs count 3.0 th/cmm L=1.6 H=8.4 751-8 LOINC LYMPH abs count 0.9 th/cmm L=1.5 H=4.0 731-0 LOINC L MONO abs count 0.6 th/cmm L=0.2 H=1.0 742-7 LOINC EOS abs count 0.1 th/cmm L=0.0 H=0.5 711-2 LOINC BASO abs count 0.0 th/cmm L=0.0 H=0.2 704-7 LOINC IG abs count 0.0 th/cmm L=0.0 H=0.1 64210-0 LOINC NRBC abs count 0.0 mil/cmm L=0.0 H=0.0 27674-4 LOINC RBC 4.22 mil/cmm L=3.90 H=5.40 789-8 [...] PANEL (BMP) - Collect Date/Time: 05/06/2023 11:05 [facility] ID: [id number] [address] [place] [address], [address] LOINC: 67827-9 Test Value Unit Reference Range Code Code [...] H=34 2028-9 LOINC ANION GAP 9.8 mmol/L 15553-3 LOINC CALCIUM SERUM 9.4 mg/dL L=8.2 H=10.2 32139-8 LOINC AGE 82 years eGFR (non-Afr.Amer.) 59 mL/min 02322-4 LOINC eGFR (Afr-Micronesian) 72 mL/min 66811-5 LOINC Social History Type Status Start Date End Date Code Code Syst em Smoking History Never smoker (Never Smoked) 064054534 SNOMED CT Sex Female Medications Medication Start Date End Date Route Frequency Dose Code Code System Medication Instructions Home Meds Atorvastatin Calcium 20MG Oral Tablet 08/20/2019 Unknown ORAL BEDTIME 20 MILLIGRAMS 799077 RxNorm TAKE 20 MILLIGRAMS ORAL BEDTIME Fish Oil 1000MG Oral Capsule, Liquid Filled 08/20/2019 03/18/20 24 ORAL DAILY 3 CAPSULE 878150 RxNorm TAKE 3 CAPSULE ORAL DAILY Gabapentin 800MG Oral Tablet 08/20/2019 03/18/20 24 ORAL TWICE A DAY 1 TABLET 020574 RxNorm TAKE 1 TABLET ORAL TWICE A DAY Lisinopril 20MG Oral Tablet 08/20/2019 03/18/20 24 ORAL DAILY 20 MILLIGRAMS 320114 RxNorm TAKE 20 MILLIGRAMS ORAL DAILY Multiple Vitamin Formula Oral Tablet 08/20/2019 03/18/20 24 ORAL DAILY 1 unit(s) 9857940 RxNorm TAKE 1 EACH ORAL DAILY Pramipexole Dihydrochlorid e 0.125MG Oral Tablet 08/20/2019 09/30/19 24 ORAL BEDTIME 2 TABLET 683971 RxNorm TAKE 2 TABLET ORAL BEDTIME glipiZIDE 10MG Oral Tablet, Extended Release 08/20/2019 Unknown ORAL DAILY 10 MILLIGRAMS 041746 RxNorm TAKE 10 MILLIGRAMS ORAL DAILY metFORMIN HCl 1000MG Oral Tablet 08/20/2019 Unknown ORAL TWICE A DAY WITH FOOD 1000 MILLIGRAMS 632573 RxNorm TAKE 1000 MILLIGRAMS ORAL TWICE A DAY WITH FOOD Keflex 500MG Oral Capsule 01/02/2022 09/30/19 24 ORAL THREE TIMES A DAY 1 CAPSULE 562632 RxNorm TAKE 1 CAPSULE ORAL THREE TIMES A DAY Nystatin 048145U/1ML Oral Suspension 01/02/2022 09/30/19 24 ORAL FOUR TIMES A DAY 5 mL 205401 RxNorm TAKE 5 mL ORAL FOUR TIMES A DAY Cephalexin 500MG Oral Tablet 03/17/2024 03/19/20 24 ORAL TWICE A DAY 1 TABLET 149336 RxNorm TAKE 1 TABLET ORAL TWICE A DAY x 7 days Acetaminophen 500MG Oral Tablet 03/18/2024 03/18/20 24 ORAL NEEDED EVERY 6 HOURS 2 TABLET 176325 RxNorm TAKE 2 TABLET (OR 3 TABLETS regular strength 325mg) ORAL EVERY 6 HOURS FOR 1-2 DAYS THEN NEEDED FOR Fever/Pain (NEXT DOSES 6AM AND 12 NOON) Ibuprofen 200MG Oral Tablet 03/18/2024 03/18/20 24 ORAL EVERY 6 HOURS 2 TABLET 129054 RxNorm TAKE 2 TABLET ORAL EVERY 6 HOURS FOR 24 HOURS THEN NEEDED. (NEXT DOSES at 4AM AND 10AM) Aspirin 81MG Oral Tablet, Enteric Coated 03/19/2024 Unknown ORAL DAILY 81 MILLIGRAMS 925169 RxNorm TAKE 81 MILLIGRAMS ORAL DAILY Carvedilol 6.25MG Oral Tablet 03/19/2024 Unknown ORAL TWICE A DAY 6.25 MILLIGRAMS 838541 RxNorm TAKE 6.25 MILLIGRAMS ORAL TWICE A DAY Fish Oil [place]-3 1000 MG Oral Capsule, Liquid Filled 03/19/2024 Unknown ORAL DAILY 1000 MG RxNorm TAKE 10 00 MG ORAL DAILY Gabapentin 600MG Oral Tablet 03/19/2024 Unknown ORAL TWICE A DAY 600 MILLIGRAMS 040607 RxNorm TAKE 600 MILLIGRAMS ORAL TWICE A DAY Lisinopril 10MG Oral Tablet 03/19/2024 Unknown ORAL DAILY 10 MILLIGRAMS 221771 RxNorm TAKE 10 MILLIGRAMS ORAL DAILY Multiple [...] Tablet 03/19/2024 Unknown ORAL BEDTIME 0.5 MILLIGRAMS 457493 RxNorm TAKE 0.5 MILLIGRAMS ORAL BEDTIME Ventolin HFA 0.09MG/1Actuat ion Inhalation Suspension 03/19/2024 Unknown INHALA TION NEEDED EVERY 4 HOURS 2 unit(s) 583361 RxNorm 2 EACH INHALATION NEEDED EVERY 4 HOURS Victoza 6MG/1ML Subcutaneous Solution 03/19/2024 Unknown SUBCUT ANEOUS 1.8 MILLILITERS 888055 RxNorm INJECT 1.8 MILLILITERS SUBCUTANEOU S Cefdinir [...] Code Code System URINARY TRACT INFECTION active 401082 05 SNOMED-CT HYPOTENSION active 26984930 SNOMED-C T HYPOKALEMIA active 84972697 SNOMED-C T SEPSIS active 04529905 SNOMED-CT CIRRHOSIS - NON-ALCOHOLIC 01/02/2022 resolved 266 723967 SNOMED-CT HTN 08/20/2019 resolved 13096484 SNOMED-CT HIGH CHOLESTEROL 10/01/2023 resolved 30667425 SN OMED-CT PERSONAL HISTORY OF BLADDER CA 08/20/2019 resolved 409126190 SNOMED-CT NON-INSULIN DEPENDENT DIABETES MELLITUS 08/20/2019 resolved 77448556 SNOMED-CT 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
--- OUTSIDE RECORDS SUMMARY | 2024-03-23 12:32 | XMS_ITS ---
Author Organization Unknown Address [address] [place] [phone] Phone Care Team Providers Care Maintenance Planner Name Role Phone DORENE WATTS Registered Nurse Unavailable FRIDA GUNN Attending Unavailable ERAN Viera Primary Unavailable UNLISTED PROVIDER - REQUESTED Xhandoff Un available Results TROPONIN HIGH SENSITIVITY* - Collect Date/Time: 09/30/2023 23:44 [facility] ID: [id number] [address] [place] [address], [address] LOINC: 02183-9 Test Value Unit Reference Range Code Code System Flag TROPONIN HS 7.2 pg/mL L=0.0 H=60.4 Specimen seq. 1 HOUR D-DIMER - Collect Date/Time: 09/30/2023 22:51 [facility] ID: [id number] [address] [place] [address], [address] LOINC: 75426-0 Test Value Unit Reference Range Code Code System Flag D-DIMER 0.57 mg/L L=0.19 H=0.50 20393-3 LOINC H TROPONIN HIGH SENSITIVITY* - Collect Date/Time: 09/30/2023 22:40 [facility] ID: [id number] [address] [place] [address], [address] LOINC: 88165-7 Test Value Unit Reference Range Code Code System Flag TROPONIN HS 7.9 pg/mL L=0.0 H=60.4 Specimen seq. RANDOM COMPREHENSIVE METABOLIC PANE L (CMP) - Collect Date/Time: 09/30/2023 22:40 [facility] ID: [id number] [address] [place], [place], [address] LOINC: 54707-7 Test Value Unit Reference Range Code Code [...] H=34 2028-9 LOINC ANION GAP 7.3 mmol/L 00394-6 LOINC CALCIUM SERUM 9.4 mg/dL L=8.2 H=10.2 50069-3 LOINC BILIRUBIN TOTAL 0.5 mg/dL L=0.0 H=1.3 1975-2 LOINC ALK. PHOS. 118 U/L L=46 H=116 6768-6 LOINC H SGOT (AST) 30 U/L L=15 H=37 1920-8 LOINC SGPT (ALT) 39 U/L L=12 H=78 1742-6 LOINC TOTAL PROTEIN 6.9 gm/dL L=6.0 H=8.0 2885-2 LOINC ALBUMIN 3.6 gm/dL L=3.4 H=5.0 1751-7 LOINC AGE 83 years eGFR (non-Afr.Amer.) 69 mL/min 40072-0 LOINC eGFR (Afr-Latvian) 83 mL/min 68244-7 LOINC CBC W/ DIFFERENTIAL* - Colle ct Date/Time: 09/30/2023 22:40 [facility] ID: [id number] [address] [place], [place], [address] LOINC: 22305-9 Test Value Unit Reference Range Code Code System Flag WBC 4.90 th/cmm L=5.00 H=10.00 6690-2 LOINC L NEUT % 52.1 % L=40.0 H=80.0 LYMPH % 34.5 % L=10.0 H=50.0 MONO % 11.2 % L=2.0 H=12.0 99751-1 LOINC EOS % 1.6 % L=0.0 H=8.0 BASO % 0.4 % L=0.0 H=3.0 IG % 0.2 % L=0.0 H=1.1 2514-8 LOINC NRBC % 0.0 % L=0.0 H=0.0 99918-9 LOINC NEUT abs count 2.6 th/cmm L=1.6 H=8.4 751-8 LOINC LYMPH abs count 1.7 th/cmm L=1.5 H=4.0 731-0 LOINC MONO abs count 0.6 th/cmm L=0.2 H=1.0 742-7 LOINC EOS abs count 0.1 th/cmm L=0.0 H=0.5 711-2 LOINC BASO abs count 0.0 th/cmm L=0.0 H=0.2 704-7 LOINC IG abs count 0.0 th/cmm L=0.0 H=0.1 52664-4 LOINC NRBC abs count 0.0 mil/cmm L=0.0 H=0.0 04653-0 LOINC RBC 3.98 mil/cmm L=3.90 H=5.40 789-8 [...] IV CONTRST* - Completed: 10/01/2023 00:04 LOINC: [facility] RADIOLOGY [place], [place] [address] [employer] RIVETING MACHINE OPERATOR REPORT Patient Name: NICK MENDIETA MRN: Sex: : Age: [id number] F 1940 83 Account: Accession: Admit: StayType: [id number] 10/01/2023 E Ordered: Order ID: Submitted: Ordering Provider: 09/30/2023 23:30 [id number] LUIS A CAMARGO Completed: Technologist: Resulted: 09/30/2023 [...] (NRDR) Dose Index Registry (DIR) with the [employer] (ACR). RADIATION OPTIMIZATION: All CT scans at this facility use at least one of these dose optimization techniques: automated exposure control; mA and/or kV adjustment per patient size (includes targeted exams where dose is matched to clinical indication); or iterative reconstruction. Electronically signed by: Kris Ferguson Dictated: 10/01/2023 09:22 XR CHEST PORTABLE OR 1V - Co mpleted: 09/30/2023 22:54 LOINC: [facility] [place], [place] [address] [facility] PACS HO[employer] RIVETING MACHINE OPERATOR REPORT Patient Name: NICK MENDIETA MRN: Sex: : Age: [id number] F 1940 83 Account: Accession: Admit: StayType: [id number] 10/01/2023 E Ordered: Order ID: Submitted: Ordering Provider: 09/30/2023 22:41 [id number] LUIS A SANCHEZ Completed: Technologist: Resulted: 09/30/2023 [...] em Smoking History Never smoker (Never Smoked) [id number] SNOMED CT Sex Female Vital Signs Vital Sign Value Unit Stanley Value Stanley Unit Date/Time Recent/Initial? Code Code System Body Mass Index 25.32 kg/m2 09/30/2023 22:42 Initial 76817 -5 LOINC Systolic Blood Pressure 126 mm[Hg] [...] Saturation 96 % 2023 02:00 Most Recent 94884 -5 LOINC O2 Saturation 99 % 2023 22:40 Initial 10131 -5 LOINC Inhaled Oxygen Flow Rate 2.00 [...] 17 /min 09/30/19 22:40 Initial 9279- 1 [facility] Temperature 36.3 Carolann 97.3 F 09/30/19 22:42 Initial 8310- 5 [facility] Weight 60.78 kg 134.00 lbs 09/30/2023 22:42 Initial 26616 -7 [facility] Medications Medication Start Date End Date Route Frequency Dose Code Code System Medication Instructions Home Meds Atorvastatin Calcium 20MG Oral Tablet 08/20/2019 Unknown ORAL BEDTIME 20 MILLIGRAMS 359032 RxNorm TAKE 20 MILLIGRAMS ORAL BEDTIME Fish Oil 1000MG Oral Capsule, Liquid Filled 08/20/2019 03/18/20 24 ORAL DAILY 3 CAPSULE 821482 RxNorm TAKE 3 CAPSULE ORAL DAILY Gabapentin 800MG Oral Tablet 08/20/2019 03/18/20 24 ORAL TWICE A DAY 1 TABLET 538636 RxNorm TAKE 1 TABLET ORAL TWICE A DAY Lisinopril 20MG Oral Tablet 08/20/2019 03/18/20 24 ORAL DAILY 20 MILLIGRAMS 668308 RxNorm TAKE 20 MILLIGRAMS ORAL DAILY Multiple Vitamin Formula Oral Tablet 08/20/2019 03/18/20 24 ORAL DAILY 1 unit(s) 2183668 RxNorm TAKE 1 EACH ORAL DAILY Pramipexole Dihydrochlorid e 0.125MG Oral Tablet 08/20/2019 09/30/19 24 ORAL BEDTIME 2 TABLET 230969 RxNorm TAKE 2 TABLET ORAL BEDTIME glipiZIDE 10MG Oral Tablet, Extended Release 08/20/2019 Unknown ORAL DAILY 10 MILLIGRAMS 184605 RxNorm TAKE 10 MILLIGRAMS ORAL DAILY metFORMIN HCl 1000MG Oral Tablet 08/20/2019 Unknown ORAL TWICE A DAY WITH FOOD 1000 MILLIGRAMS 247118 RxNorm TAKE 1000 MILLIGRAMS ORAL TWICE A DAY WITH FOOD Keflex 500MG Oral Capsule 01/02/2022 09/30/19 24 ORAL THREE TIMES A DAY 1 CAPSULE 261802 RxNorm TAKE 1 CAPSULE ORAL THREE TIMES A DAY Nystatin 203844L/1ML Oral Suspension 01/02/2022 09/30/19 24 ORAL FOUR TIMES A DAY 5 mL 309484 RxNorm TAKE 5 mL ORAL FOUR TIMES A DAY Cephalexin 500MG Oral Tablet 03/17/2024 03/19/20 24 ORAL TWICE A DAY 1 TABLET 347075 RxNorm TAKE 1 TABLET ORAL TWICE A DAY x 7 days Acetaminophen 500MG Oral Tablet 03/18/2024 03/18/20 24 ORAL NEEDED EVERY 6 HOURS 2 TABLET 485538 RxNorm TAKE 2 TABLET (OR 3 TABLETS regular strength 325mg) ORAL EVERY 6 HOURS FOR 1-2 DAYS THEN NEEDED FOR Fever/Pain (NEXT DOSES 6AM AND 12 NOON) Ibuprofen 200MG Oral Tablet 03/18/2024 03/18/20 24 ORAL EVERY 6 HOURS 2 TABLET 674952 RxNorm TAKE 2 TABLET ORAL EVERY 6 HOURS FOR 24 HOURS THEN NEEDED. (NEXT DOSES at 4AM AND 10AM) Aspirin 81MG Oral Tablet, Enteric Coated 03/19/2024 Unknown ORAL DAILY 81 MILLIGRAMS 780510 RxNorm TAKE 81 MILLIGRAMS ORAL DAILY Carvedilol 6.25MG Oral Tablet 03/19/2024 Unknown ORAL TWICE A DAY 6.25 MILLIGRAMS 19990607 RxNorm TAKE 6.25 MILLIGRAMS ORAL TWICE A DAY Fish Oil [place]-3 1000 MG Oral Capsule, Liquid Filled 03/19/2024 Unknown ORAL DAILY 1000 MG RxNorm TAKE 10 00 MG ORAL DAILY Gabapentin 600MG Oral Tablet 03/19/2024 Unknown ORAL TWICE A DAY 600 MILLIGRAMS 147394 RxNorm TAKE 600 MILLIGRAMS ORAL TWICE A DAY Lisinopril 10MG Oral Tablet 03/19/2024 Unknown ORAL DAILY 10 MILLIGRAMS 959642 RxNorm TAKE 10 MILLIGRAMS ORAL DAILY Multiple Vitamins Oral Tablet 03/19/2024 Unknown ORAL DAILY 1 unit(s) RxNorm TAKE 1 EACH ORAL DAILY Nitroglycerin 0.4MG Sublingual Tablet 03/19/2024 Unknown SUBLIN GUAL NEEDED 0.4 MILLIGRAMS 451604 RxNorm DISSOLVE 0.4 MILLIGRAMS SUBLINGUAL NEEDED Omeprazole 40MG Oral Capsule, Delayed Release 03/19/2024 Unknown ORAL DAILY 40 MILLIGRAMS 20020517 RxNorm TAKE 40 MILLIGRAMS ORAL DAILY Pramipexole Dihydrochlorid e 0.5MG Oral Tablet 03/19/2024 Unknown ORAL BEDTIME 0.5 MILLIGRAMS 017609 RxNorm TAKE 0.5 MILLIGRAMS ORAL BEDTIME Ventolin HFA 0.09MG/1Actuat ion Inhalation Suspension 03/19/2024 Unknown INHALA TION NEEDED EVERY 4 HOURS 2 unit(s) 243524 RxNorm 2 EACH INHALATION NEEDED EVERY 4 HOURS Victoza 6MG/1ML Subcutaneous Solution 03/19/2024 Unknown SUBCUT ANEOUS 1.8 MILLILITERS 722970 RxNorm INJECT 1.8 MILLILITERS SUBCUTANEOU S Cefdinir [...] Code Code System URINARY TRACT INFECTION active 529418 05 SNOMED-CT HYPOTENSION active 64126720 SNOMED-C T HYPOKALEMIA active 00089771 SNOMED-C T SEPSIS active 81739882 SNOMED-CT CIRRHOSIS - NON-ALCOHOLIC 01/02/2022 resolved 266 627037 SNOMED-CT HTN 08/20/2019 resolved 44642816 SNOMED-CT HIGH CHOLESTEROL 10/01/2023 resolved 91528815 SN OMED-CT PERSONAL HISTORY OF BLADDER CA 08/20/2019 resolved 026172195 SNOMED-CT NON-INSULIN DEPENDENT DIABETES MELLITUS 08/20/2019 resolved 73904130 SNOMED-CT 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
--- OUTSIDE RECORDS SUMMARY | 2024-03-23 12:32 | XMS_ITS ---
Author Organization Unknown Address [address] [place] [phone] Phone Care Team Providers Care Signalling And Communications Engineer Name Role Phone MCCORMACK CRYSTAL Gallo Attending Unavailable ERAN Viera Primary Unavailable Results TSH THYROID STIMULATING HORM ONE* - Collect Date/Time: 05/21/2023 11:48 [facility] ID: [id number] [address] [place] [address], [address] LOINC: 3014-8 Test Value Unit Reference Range Code Code System Flag TSH 2.546 uIU/mL L=0.360 H=3.740 3014-8 LOINC TROPONIN HIGH SENSITIVITY* - Collect Date/Time: 05/21/2023 11:48 [facility] ID: [id number] [address] [place] [address], [address] LOINC: 72313-7 Test Value Unit Reference Range Code Code System Flag TROPONIN HS 5.1 pg/mL L=0.0 H=60.4 Specimen seq. RANDOM BNP (PRO-B NATRIURETIC PEPTI DE) - Collect Date/Time: 05/21/2023 11:48 [facility] ID: [id number] [address] [place] [address], [address] LOINC: 79556-4 Test Value Unit Reference Range Code Code System Flag NT-proBNP 118.0 pg/mL L=0.0 H=450 41431-5 LOINC CBC W/ DIFFERENTIAL* - Colle ct Date/Time: 05/21/2023 11:48 [facility] ID: [id number] [address] [place] [address] [place], [address] LOINC: 59301-4 Test Value Unit Reference Range Code Code System Flag WBC 5.04 th/cmm L=5.00 H=10.00 6690-2 LOINC NEUT % 57.1 % L=40.0 H=80.0 LYMPH % 26.0 % L=10.0 H=50.0 MONO % 11.5 % L=2.0 H=12.0 43938-5 LOINC EOS % 4.4 % L=0.0 H=8.0 BASO % 0.8 % L=0.0 H=3.0 IG % 0.2 % L=0.0 H=1.1 2514-8 LOINC NRBC % 0.0 % L=0.0 H=0.0 76652-9 LOINC NEUT abs count 2.9 th/cmm L=1.6 H=8.4 751-8 LOINC LYMPH abs count 1.3 th/cmm L=1.5 H=4.0 731-0 LOINC L MONO abs count 0.6 th/cmm L=0.2 H=1.0 742-7 LOINC EOS abs count 0.2 th/cmm L=0.0 H=0.5 711-2 LOINC BASO abs count 0.0 th/cmm L=0.0 H=0.2 704-7 LOINC IG abs count 0.0 th/cmm L=0.0 H=0.1 58227-1 LOINC NRBC abs count 0.0 mil/cmm L=0.0 H=0.0 20883-0 LOINC RBC 4.15 mil/cmm L=3.90 H=5.40 789-8 [...] PANEL (BMP) - Collect Date/Time: 05/21/2023 11:48 [facility] ID: [id number] [address] [place], [place], [address] LOINC: 75718-0 Test Value Unit Reference Range Code Code [...] H=34 2028-9 LOINC ANION GAP 7.7 mmol/L 78991-1 LOINC CALCIUM SERUM 9.4 mg/dL L=8.2 H=10.2 65652-0 LOINC AGE 82 years eGFR (non-Afr.Amer.) 64 mL/min 73300-0 LOINC eGFR (Afr-[place] Islander) 78 mL/min 29619-1 LOINC Social History Type Status Start Date End Date Code Code Syst em Smoking History Never smoker (Never Smoked) 792055679 SNOMED CT Sex Female Medications Medication Start Date End Date Route Frequency Dose Code Code System Medication Instructions Home Meds Atorvastatin Calcium 20MG Oral Tablet 08/20/2019 Unknown ORAL BEDTIME 20 MILLIGRAMS 204304 RxNorm TAKE 20 MILLIGRAMS ORAL BEDTIME Fish Oil 1000MG Oral Capsule, Liquid Filled 08/20/2019 03/18/20 24 ORAL DAILY 3 CAPSULE 808059 RxNorm TAKE 3 CAPSULE ORAL DAILY Gabapentin 800MG Oral Tablet 08/20/2019 03/18/20 24 ORAL TWICE A DAY 1 TABLET 599902 RxNorm TAKE 1 TABLET ORAL TWICE A DAY Lisinopril 20MG Oral Tablet 08/20/2019 03/18/20 24 ORAL DAILY 20 MILLIGRAMS 281202 RxNorm TAKE 20 MILLIGRAMS ORAL DAILY Multiple Vitamin Formula Oral Tablet 08/20/2019 03/18/20 24 ORAL DAILY 1 unit(s) 7454750 RxNorm TAKE 1 EACH ORAL DAILY Pramipexole Dihydrochlorid e 0.125MG Oral Tablet 08/20/2019 09/30/19 24 ORAL BEDTIME 2 TABLET 222264 RxNorm TAKE 2 TABLET ORAL BEDTIME glipiZIDE 10MG Oral Tablet, Extended Release 08/20/2019 Unknown ORAL DAILY 10 MILLIGRAMS 273804 RxNorm TAKE 10 MILLIGRAMS ORAL DAILY metFORMIN HCl 1000MG Oral Tablet 08/20/2019 Unknown ORAL TWICE A DAY WITH FOOD 1000 MILLIGRAMS 969763 RxNorm TAKE 1000 MILLIGRAMS ORAL TWICE A DAY WITH FOOD Keflex 500MG Oral Capsule 01/02/2022 09/30/19 24 ORAL THREE TIMES A DAY 1 CAPSULE 654727 RxNorm TAKE 1 CAPSULE ORAL THREE TIMES A DAY Nystatin 180029E/1ML Oral Suspension 01/02/2022 09/30/19 24 ORAL FOUR TIMES A DAY 5 mL 287955 RxNorm TAKE 5 mL ORAL FOUR TIMES A DAY Cephalexin 500MG Oral Tablet 03/17/2024 03/19/20 24 ORAL TWICE A DAY 1 TABLET 331449 RxNorm TAKE 1 TABLET ORAL TWICE A DAY x 7 days Acetaminophen 500MG Oral Tablet 03/18/2024 03/18/20 24 ORAL NEEDED EVERY 6 HOURS 2 TABLET 085167 RxNorm TAKE 2 TABLET (OR 3 TABLETS regular strength 325mg) ORAL EVERY 6 HOURS FOR 1-2 DAYS THEN NEEDED FOR Fever/Pain (NEXT DOSES 6AM AND 12 NOON) Ibuprofen 200MG Oral Tablet 03/18/2024 03/18/20 24 ORAL EVERY 6 HOURS 2 TABLET 294271 RxNorm TAKE 2 TABLET ORAL EVERY 6 HOURS FOR 24 HOURS THEN NEEDED. (NEXT DOSES at 4AM AND 10AM) Aspirin 81MG Oral Tablet, Enteric Coated 03/19/2024 Unknown ORAL DAILY 81 MILLIGRAMS 679986 RxNorm TAKE 81 MILLIGRAMS ORAL DAILY Carvedilol 6.25MG Oral Tablet 03/19/2024 Unknown ORAL TWICE A DAY 6.25 MILLIGRAMS 408783 RxNorm TAKE 6.25 MILLIGRAMS ORAL TWICE A DAY Fish Oil [place]-3 1000 MG Oral Capsule, Liquid Filled 03/19/2024 Unknown ORAL DAILY 1000 MG RxNorm TAKE 10 00 MG ORAL DAILY Gabapentin 600MG Oral Tablet 03/19/2024 Unknown ORAL TWICE A DAY 600 MILLIGRAMS 482535 RxNorm TAKE 600 MILLIGRAMS ORAL TWICE A DAY Lisinopril 10MG Oral Tablet 03/19/2024 Unknown ORAL DAILY 10 MILLIGRAMS 460581 RxNorm TAKE 10 MILLIGRAMS ORAL DAILY Multiple [...] Tablet 03/19/2024 Unknown ORAL BEDTIME 0.5 MILLIGRAMS 818682 RxNorm TAKE 0.5 MILLIGRAMS ORAL BEDTIME Ventolin HFA 0.09MG/1Actuat ion Inhalation Suspension 03/19/2024 Unknown INHALA TION NEEDED EVERY 4 HOURS 2 unit(s) 133417 RxNorm 2 EACH INHALATION NEEDED EVERY 4 HOURS Victoza 6MG/1ML Subcutaneous Solution 03/19/2024 Unknown SUBCUT ANEOUS 1.8 MILLILITERS 082308 RxNorm INJECT 1.8 MILLILITERS SUBCUTANEOU S Cefdinir [...] Code Code System URINARY TRACT INFECTION active 411738 05 SNOMED-CT HYPOTENSION active 81509909 SNOMED-C T HYPOKALEMIA active 47349521 SNOMED-C T SEPSIS active 07870562 SNOMED-CT CIRRHOSIS - NON-ALCOHOLIC 01/02/2022 resolved 266 392660 SNOMED-CT HTN 08/20/2019 resolved 69718325 SNOMED-CT HIGH CHOLESTEROL 10/01/2023 resolved 92784268 SN OMED-CT PERSONAL HISTORY OF BLADDER CA 08/20/2019 resolved 393683095 SNOMED-CT NON-INSULIN DEPENDENT DIABETES MELLITUS 08/20/2019 resolved 96913553 SNOMED-CT 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
--- OUTSIDE RECORDS SUMMARY | 2024-03-23 12:32 | XMS_ITS ---
Author Organization Unknown Address [address] [place] [phone] Phone Care Team Providers Care Crab Backer Name Role Phone MCCORMACK CRYSATL Gallo Attending Unavailable ERAN Viera Primary Unavailable Results TROPONIN HIGH SENSITIVITY* - Collect Date/Time: 08/28/2023 12:51 [facility] ID: [id number] [address] [place] [address], [address] LOINC: 12871-7 Test Value Unit Reference Range Code Code System Flag TROPONIN HS < 4.0 pg/mL L=0.0 H=60.4 Specimen seq. RANDOM LIPID PANEL* - Collect Date/ Time: 08/28/2023 12:51 [facility] ID: [id number] [address] [place] [address], [id number] LOINC: Test Value Unit Reference Range Code Code System Flag FASTING STATUS: NON FASTING CHOLESTEROL 98 mg/dL L=0 H=200 2093-3 LOINC TRIGLYCERIDES 155 mg/dL L=57 H=256 2571-8 LOINC HDL 41 mg/dL L=38 H=92 2085-9 LOINC non-HDL-C 57 mg/dL L=0 H=160 81395-3 LOINC LDL (CALC) 26 mg/dL L=0 H=130 43862-2 LOINC % HDL 41.8 % Chol/HDL Ratio 2.4 L=0.0 H=4.4 9830-1 LOINC CHD Relative Risk 0.5 x Avg L=0.0 H=1.0 LDL/HDL Ratio 0.6 L=0.0 H=3.2 64272-3 LOINC CHD Relative Risk. 0.2 x Avg L=0.0 H=1.0 HEPATIC FUNCTION PANEL - Col lect Date/Time: 08/28/2023 12:51 [facility] ID: [id number] [address] [place], [place], [id number] LOINC: 15912-6 Test Value Unit Reference Range Code Code [...] DIFFERENTIAL* - Colle ct Date/Time: 08/28/2023 12:51 [facility] ID: [id number] [address] [place], [place], [address] LOINC: 52903-6 Test Value Unit Reference Range Code Code System Flag WBC 4.62 th/cmm L=5.00 H=10.00 6690-2 LOINC L NEUT % 60.7 % L=40.0 H=80.0 LYMPH % 29.2 % L=10.0 H=50.0 MONO % 8.2 % L=2.0 H=12.0 18187-7 LOINC EOS % 1.3 % L=0.0 H=8.0 BASO % 0.4 % L=0.0 H=3.0 IG % 0.2 % L=0.0 H=1.1 2514-8 LOINC NRBC % 0.0 % L=0.0 H=0.0 97953-4 LOINC NEUT abs count 2.8 th/cmm L=1.6 H=8.4 751-8 LOINC LYMPH abs count 1.4 th/cmm L=1.5 H=4.0 731-0 LOINC L MONO abs count 0.4 th/cmm L=0.2 H=1.0 742-7 LOINC EOS abs count 0.1 th/cmm L=0.0 H=0.5 711-2 LOINC BASO abs count 0.0 th/cmm L=0.0 H=0.2 704-7 LOINC IG abs count 0.0 th/cmm L=0.0 H=0.1 05101-8 LOINC NRBC abs count 0.0 mil/cmm L=0.0 H=0.0 70953-5 LOINC RBC 4.10 mil/cmm L=3.90 H=5.40 789-8 [...] PEPTI [place]) - Collect Date/Time: 08/28/2023 12:51 [facility] ID: [id number] [address] [place] [address], [address] LOINC: 30237-5 Test Value Unit Reference Range Code Code System Flag NT-proBNP 205.0 pg/mL L=0.0 H=450 87032-1 LOINC BASIC METABOLIC PANEL (BMP) - Collect Date/Time: 08/28/2023 12:51 [facility] ID: [id number] [address] [place] [address], [address] LOINC: 16623-5 Test Value Unit Reference Range Code Code [...] H=34 2028-9 LOINC ANION GAP 9.4 mmol/L 80937-3 LOINC CALCIUM SERUM 9.7 mg/dL L=8.2 H=10.2 84758-2 LOINC AGE 83 years eGFR (non-Afr.Amer.) 71 mL/min 53507-0 LOINC eGFR (Afr-Q[place]ari) 86 mL/min 40038-0 LOINC Social History Type Status Start Date End Date Code Code Syst em Smoking History Never smoker (Never Smoked) 310438879 SNOMED CT Sex Female Medications Medication Start Date End Date Route Frequency Dose Code Code System Medication Instructions Home Meds Atorvastatin Calcium 20MG Oral Tablet 08/20/2019 Unknown ORAL BEDTIME 20 MILLIGRAMS 740561 RxNorm TAKE 20 MILLIGRAMS ORAL BEDTIME Fish Oil 1000MG Oral Capsule, Liquid Filled 08/20/2019 03/18/20 24 ORAL DAILY 3 CAPSULE 591832 RxNorm TAKE 3 CAPSULE ORAL DAILY Gabapentin 800MG Oral Tablet 08/20/2019 03/18/20 24 ORAL TWICE A DAY 1 TABLET 301063 RxNorm TAKE 1 TABLET ORAL TWICE A DAY Lisinopril 20MG Oral Tablet 08/20/2019 03/18/20 24 ORAL DAILY 20 MILLIGRAMS 544474 RxNorm TAKE 20 MILLIGRAMS ORAL DAILY Multiple Vitamin Formula Oral Tablet 08/20/2019 03/18/20 24 ORAL DAILY 1 unit(s) 7019325 RxNorm TAKE 1 EACH ORAL DAILY Pramipexole Dihydrochlorid e 0.125MG Oral Tablet 08/20/2019 09/30/19 24 ORAL BEDTIME 2 TABLET 788587 RxNorm TAKE 2 TABLET ORAL BEDTIME glipiZIDE 10MG Oral Tablet, Extended Release 08/20/2019 Unknown ORAL DAILY 10 MILLIGRAMS 350199 RxNorm TAKE 10 MILLIGRAMS ORAL DAILY metFORMIN HCl 1000MG Oral Tablet 08/20/2019 Unknown ORAL TWICE A DAY WITH FOOD 1000 MILLIGRAMS 037649 RxNorm TAKE 1000 MILLIGRAMS ORAL TWICE A DAY WITH FOOD Keflex 500MG Oral Capsule 01/02/2022 09/30/19 24 ORAL THREE TIMES A DAY 1 CAPSULE 265998 RxNorm TAKE 1 CAPSULE ORAL THREE TIMES A DAY Nystatin 700319J/1ML Oral Suspension 01/02/2022 09/30/19 24 ORAL FOUR TIMES A DAY 5 mL 298673 RxNorm TAKE 5 mL ORAL FOUR TIMES A DAY Cephalexin 500MG Oral Tablet 03/17/2024 03/19/20 24 ORAL TWICE A DAY 1 TABLET 801294 RxNorm TAKE 1 TABLET ORAL TWICE A DAY x 7 days Acetaminophen 500MG Oral Tablet 03/18/2024 03/18/20 24 ORAL NEEDED EVERY 6 HOURS 2 TABLET 000459 RxNorm TAKE 2 TABLET (OR 3 TABLETS regular strength 325mg) ORAL EVERY 6 HOURS FOR 1-2 DAYS THEN NEEDED FOR Fever/Pain (NEXT DOSES 6AM AND 12 NOON) Ibuprofen 200MG Oral Tablet 03/18/2024 03/18/20 24 ORAL EVERY 6 HOURS 2 TABLET 785643 RxNorm TAKE 2 TABLET ORAL EVERY 6 HOURS FOR 24 HOURS THEN NEEDED. (NEXT DOSES at 4AM AND 10AM) Aspirin 81MG Oral Tablet, Enteric Coated 03/19/2024 Unknown ORAL DAILY 81 MILLIGRAMS 654060 RxNorm TAKE 81 MILLIGRAMS ORAL DAILY Carvedilol 6.25MG Oral Tablet 03/19/2024 Unknown ORAL TWICE A DAY 6.25 MILLIGRAMS [id number] RxNorm TAKE 6.25 MILLIGRAMS ORAL TWICE A DAY Fish Oil Lorain-3 1000 MG Oral Capsule, Liquid Filled 03/19/2024 Unknown ORAL DAILY 1000 MG RxNorm TAKE 10 00 MG ORAL DAILY Gabapentin 600MG Oral Tablet 03/19/2024 Unknown ORAL TWICE A DAY 600 MILLIGRAMS [id number] RxNorm TAKE 600 MILLIGRAMS ORAL TWICE A DAY Lisinopril 10MG Oral Tablet 03/19/2024 Unknown ORAL DAILY 10 MILLIGRAMS 303992 RxNorm TAKE 10 MILLIGRAMS ORAL DAILY Multiple [...] Tablet 03/19/2024 Unknown ORAL BEDTIME 0.5 MILLIGRAMS 417606 RxNorm TAKE 0.5 MILLIGRAMS ORAL BEDTIME Ventolin HFA 0.09MG/1Actuat ion Inhalation Suspension 03/19/2024 Unknown INHALA TION NEEDED EVERY 4 HOURS 2 unit(s) 812602 RxNorm 2 EACH INHALATION NEEDED EVERY 4 HOURS Victoza 6MG/1ML Subcutaneous Solution 03/19/2024 Unknown SUBCUT ANEOUS 1.8 MILLILITERS 444280 RxNorm INJECT 1.8 MILLILITERS SUBCUTANEOU S Cefdinir [...] Code Code System URINARY TRACT INFECTION active 594967 [id number] SNOMED-CT HYPOTENSION active 85194805 SNOMED-C T HYPOKALEMIA active 50033644 SNOMED-C T SEPSIS active 86293478 SNOMED-CT CIRRHOSIS - NON-ALCOHOLIC 01/02/2022 resolved 266 523449 SNOMED-CT HTN 08/20/2019 resolved 99071690 SNOMED-CT HIGH CHOLESTEROL 10/01/2023 resolved 54996491 SN OMED-CT PERSONAL HISTORY OF BLADDER CA 08/20/2019 resolved [id number] SNOMED-CT NON-INSULIN DEPENDENT DIABETES MELLITUS 08/20/2019 resolved 72850734 SNOMED-CT 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 941027193 SNOMED-CT Allergies and Adverse Reactions Allergy Substance Reaction Severity Start Date Concern Status Co de Code System CODEINE Active 2670 RxNorm Plan of Treatment NM MPI STR/RST 05/15/2023 CT CHEST W/O CONTRAST 05/18/2022 CT CHEST W/O CONTRAST 03/26/2022 MRI BRAIN W/O CONTRAST 01/25/2021 Encounters Encounter Diagnosis Start Date Code Code Sys tem Dyspnea 08/28/2023 [id number] SNOMED-CT Personal Care Team Section Performer Name Performer Role Active Date Inactive Da lanette
--- OUTSIDE RECORDS SUMMARY | 2024-03-23 12:32 | XMS_ITS ---
Author Organization Unknown Address [address] [place] [address] [phone] Phone Care Team Providers Care Corsage Maker Name Role Phone KSENIA Gallo Attending Unavailable ERAN Viera Primary Unavailable Social History Type Status Start Date End Date Code Code Syst em Smoking History Never smoker (Never Smoked) [id number] SNOMED CT Sex Female Medications Medication Start Date End Date Route Frequency Dose Code Code System Medication Instructions Home Meds Atorvastatin Calcium 20MG Oral Tablet 08/20/2019 Unknown ORAL BEDTIME 20 MILLIGRAMS 660781 RxNorm TAKE 20 MILLIGRAMS ORAL BEDTIME Fish Oil 1000MG Oral Capsule, Liquid Filled 08/20/2019 03/18/20 24 ORAL DAILY 3 CAPSULE 615851 RxNorm TAKE 3 CAPSULE ORAL DAILY Gabapentin 800MG Oral Tablet 08/20/2019 03/18/20 24 ORAL TWICE A DAY 1 TABLET 994191 RxNorm TAKE 1 TABLET ORAL TWICE A DAY Lisinopril 20MG Oral Tablet 08/20/2019 03/18/20 24 ORAL DAILY 20 MILLIGRAMS 030079 RxNorm TAKE 20 MILLIGRAMS ORAL DAILY Multiple Vitamin Formula Oral Tablet 08/20/2019 03/18/20 24 ORAL DAILY 1 unit(s) 9056343 RxNorm TAKE 1 EACH ORAL DAILY glipiZIDE 10MG Oral Tablet, Extended Release 08/20/2019 Unknown ORAL DAILY 10 MILLIGRAMS 143048 RxNorm TAKE 10 MILLIGRAMS ORAL DAILY metFORMIN HCl 1000MG Oral Tablet 08/20/2019 Unknown ORAL TWICE A DAY WITH FOOD 1000 MILLIGRAMS 250367 RxNorm TAKE 1000 MILLIGRAMS ORAL TWICE A DAY WITH FOOD Cephalexin 500MG Oral Tablet 03/17/2024 03/19/20 24 ORAL TWICE A DAY 1 TABLET 851103 RxNorm TAKE 1 TABLET ORAL TWICE A DAY x 7 days Acetaminophen 500MG Oral Tablet 03/18/2024 03/18/20 24 ORAL NEEDED EVERY 6 HOURS 2 TABLET 933433 RxNorm TAKE 2 TABLET (OR 3 TABLETS regular strength 325mg) ORAL EVERY 6 HOURS FOR 1-2 DAYS THEN NEEDED FOR Fever/Pain (NEXT DOSES 6AM AND 12 NOON) Ibuprofen 200MG Oral Tablet 03/18/2024 03/18/20 24 ORAL EVERY 6 HOURS 2 TABLET 411859 RxNorm TAKE 2 TABLET ORAL EVERY 6 HOURS FOR 24 HOURS THEN NEEDED. (NEXT DOSES at 4AM AND 10AM) Aspirin 81MG Oral Tablet, Enteric Coated 03/19/2024 Unknown ORAL DAILY 81 MILLIGRAMS 181028 RxNorm TAKE 81 MILLIGRAMS ORAL DAILY Carvedilol 6.25MG Oral Tablet 03/19/2024 Unknown ORAL TWICE A DAY 6.25 MILLIGRAMS 19990607 RxNorm TAKE 6.25 MILLIGRAMS ORAL TWICE A DAY Fish Oil Summers-3 1000 MG Oral Capsule, Liquid Filled 03/19/2024 Unknown ORAL DAILY 1000 MG RxNorm TAKE 10 00 MG ORAL DAILY Gabapentin 600MG Oral Tablet 03/19/2024 Unknown ORAL TWICE A DAY 600 MILLIGRAMS 335485 RxNorm TAKE 600 MILLIGRAMS ORAL TWICE A DAY Lisinopril 10MG Oral Tablet 03/19/2024 Unknown ORAL DAILY 10 MILLIGRAMS 193191 RxNorm TAKE 10 MILLIGRAMS ORAL DAILY Multiple Vitamins Oral Tablet 03/19/2024 Unknown ORAL DAILY 1 unit(s) RxNorm TAKE 1 EACH ORAL DAILY Nitroglycerin 0.4MG Sublingual Tablet 03/19/2024 Unknown SUBLIN GUAL NEEDED 0.4 MILLIGRAMS 353121 RxNorm DISSOLVE 0.4 MILLIGRAMS SUBLINGUAL NEEDED Omeprazole 40MG Oral Capsule, Delayed Release 03/19/2024 Unknown ORAL DAILY 40 MILLIGRAMS 20020517 RxNorm TAKE 40 MILLIGRAMS ORAL DAILY Pramipexole Dihydrochlorid e 0.5MG Oral Tablet 03/19/2024 Unknown ORAL BEDTIME 0.5 MILLIGRAMS 981471 RxNorm TAKE 0.5 MILLIGRAMS ORAL BEDTIME Ventolin HFA 0.09MG/1Actuat ion Inhalation Suspension 03/19/2024 Unknown INHALA TION NEEDED EVERY 4 HOURS 2 unit(s) 976924 RxNorm 2 EACH INHALATION NEEDED EVERY 4 HOURS Victoza 6MG/1ML Subcutaneous Solution 03/19/2024 Unknown SUBCUT ANEOUS 1.8 MILLILITERS 957846 RxNorm INJECT 1.8 MILLILITERS SUBCUTANEOU S Cefdinir [...] Code Code System URINARY TRACT INFECTION active 872110 05 SNOMED-CT HYPOTENSION active 42810892 SNOMED-C T HYPOKALEMIA active 62493984 SNOMED-C T SEPSIS active 43796721 SNOMED-CT CIRRHOSIS - NON-ALCOHOLIC 01/02/2022 resolved 266 241869 SNOMED-CT HTN 08/20/2019 resolved 45415900 SNOMED-CT HIGH CHOLESTEROL 10/01/2023 resolved 03747961 SN OMED-CT PERSONAL HISTORY OF BLADDER CA 08/20/2019 resolved 026303034 SNOMED-CT NON-INSULIN DEPENDENT DIABETES MELLITUS 08/20/2019 resolved 54256935 SNOMED-CT 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 044069888 SNOMED-CT Allergies and Adverse Reactions Allergy Substance Reaction Severity Start Date Concern Status Co de Code System CODEINE Active 2670 RxNorm Plan of Treatment NM MPI STR/RST 05/15/2023 CT CHEST W/O CONTRAST 05/18/2022 CT CHEST W/O CONTRAST 03/26/2022 MRI BRAIN W/O CONTRAST 01/25/2021 Encounters Encounter Diagnosis Start Date Code Code Sys tem Atherosclerosis of artery 10/02/2023 [id number] SN OMED-CT Personal Care Team Section Performer Name Performer Role Active Date Inactive Da lanette
--- OUTSIDE RECORDS SUMMARY | 2024-03-23 12:33 | XMS_ITS ---
Author Organization Unknown Address [address] [place] [address] [phone] Phone Care Team Providers Care [employer] Founder Name Role Phone LIA TENA Registered Nurse UnavailGarret ESCALANTE Registered Nurse Unavailab nic Guaman Attending Unavailable KEVIN CURIEL Unavailable ERAN Viera Primary Unavailable UNLISTED PROVIDER - REQUESTED Xhandoff Un available Results NOVA GLUCOSE FINGER HEEL CAP ILLARY - Collect Date/Time: 03/19/2024 08:26 [facility] ID: [id number] [address] [place] [address], [id number] LOINC: 81077-8 Test Value Unit Reference Range Code Code System Flag GLUCOSE CAP 87 mg/dL L=70 H=116 50873-0 LOINC CBC W/ DIFFERENTIAL* - Colle ct Date/Time: 03/19/2024 07:50 [facility] ID: [id number] [address] [place] [address], [address] LOINC: 51983-6 Test Value Unit Reference Range Code Code System Flag WBC 12.62 th/cmm L=5.00 H=10.00 6690-2 LOINC H NEUT % 80.0 % L=40.0 H=80.0 LYMPH % 6.3 % L=10.0 H=50.0 L MONO % 12.7 % L=2.0 H=12.0 23754-1 LOINC H EOS % 0.2 % L=0.0 H=8.0 BASO % 0.2 % L=0.0 H=3.0 IG % 0.6 % L=0.0 H=1.1 5574-8 LOINC NRBC % 0.0 % L=0.0 H=0.0 32737-6 LOINC NEUT abs count 10.1 th/cmm L=1.6 H=8.4 751-8 LOINC H LYMPH abs count 0.8 th/cmm L=1.5 H=4.0 731-0 LOINC L MONO abs count 1.6 th/cmm L=0.2 H=1.0 742-7 LOINC H EOS abs count 0.0 th/cmm L=0.0 H=0.5 711-2 LOINC BASO abs count 0.0 th/cmm L=0.0 H=0.2 704-7 LOINC IG abs count 0.1 th/cmm L=0.0 H=0.1 92139-8 LOINC NRBC abs count 0.0 mil/cmm L=0.0 H=0.0 75858-1 LOINC RBC 3.59 mil/cmm L=3.90 H=5.40 789-8 LOINC L HEMOGLOBIN 10.8 gm/dL L=12.0 H=16.0 718-7 LOINC L HEMATOCRIT 33 % L=37 H=47 4544-3 LOINC L MCV 91 fL L=82 H=92 787-2 LOINC MCH 30.1 pg L=27.0 H=31.0 785-6 LOINC MCHC 33.0 % L=32.0 H=36.0 786-4 LOINC RDW-SD 47.6 fL L=39.0 H=49.0 788-0 LOINC PLATELET COUNT 89 th/cmm L=150 H=450 777-3 LOINC L Ovalocytes 2+ MAGNESIUM SERUM* - Collect D ate/Time: 03/19/2024 07:50 [facility] ID: [id number] [address] [place], [place], [address] LOINC: 94265-9 Test Value Unit Reference Range Code Code System Flag MAGNESIUM 1.2 mg/dL L=1.6 H=2.3 79854-7 LOINC L LACTIC ACID - Collect Date/T ellis: 03/19/2024 07:50 [facility] ID: [id number] [address] [place], [place], [address] LOINC: Test Value Unit Reference Range Code Code System Flag LACTIC ACID 1.8 mmol/L L=0.7 H=2.1 83655-5 [facility] BASIC METABOLIC PANEL (BMP) - Collect Date/Time: 03/19/2024 07:50 [facility] ID: [id number] [address] [place] [address], [address] LOINC: 11682-5 Test Value Unit Reference Range Code Code System Flag GLUCOSE 80 mg/dL L=70 H=116 2345-7 LOINC BUN 32 mg/dL L=7 H=17 3094-0 LOINC H CREATININE 1.18 mg/dL L=0.52 H=1.04 2160-0 LOINC H SODIUM SERUM 132 mmol/L L=136 H=145 2951-2 LOINC L POTASSIUM SERUM 4.6 mmol/L L=3.4 H=5.2 2823-3 LOINC CHLORIDE SERUM 104 mmol/L L=98 H=107 2075-0 LOINC CARBON DIOXIDE (CO2) 20 mmol/L L=22 H=30 2028-9 LOINC L ANION GAP 7.4 mmol/L 88806-7 LOINC CALCIUM SERUM 8.5 mg/dL L=8.4 H=10.2 84895-0 LOINC AGE 83 years eGFR (non-Afr.Amer.) 44 mL/min 74763-9 [facility] eGFR (Afr-[place]) 53 mL/min 75059-3 [facility] NOVA GLUCOSE FINGER HEEL CAP ILLARY - Collect Date/Time: 03/18/2024 21:04 [facility] ID: [id number] [address] [place] [address], [id number] LOINC: 92857-9 Test Value Unit Reference Range Code Code System Flag GLUCOSE CAP 135 mg/dL L=70 H=116 61953-1 LOINC H LACTIC ACID - Collect Date/T ellis: 03/18/2024 18:00 [facility] ID: [id number] [address] [place], [place], [address] LOINC: Test Value Unit Reference Range Code Code System Flag LACTIC ACID 2.3 mmol/L L=0.7 H=2.1 10314-9 LOINC H CBC W/ DIFFERENTIAL* - Colle ct Date/Time: 03/18/2024 18:00 [facility] ID: [id number] [address] [place], [place], [id number] LOINC: 23418-3 Test Value Unit Reference Range Code Code System Flag WBC 13.71 th/cmm L=5.00 H=10.00 6690-2 LOINC H NEUT % 82.2 % L=40.0 H=80.0 H LYMPH % 4.0 % L=10.0 H=50.0 L MONO % 13.1 % L=2.0 H=12.0 99233-2 LOINC H EOS % 0.1 % L=0.0 H=8.0 BASO % 0.1 % L=0.0 H=3.0 IG % 0.5 % L=0.0 H=1.1 2514-8 LOINC NRBC % 0.0 % L=0.0 H=0.0 23735-9 LOINC NEUT abs count 11.3 th/cmm L=1.6 H=8.4 751-8 LOINC H LYMPH abs count 0.6 th/cmm L=1.5 H=4.0 731-0 LOINC L MONO abs count 1.8 th/cmm L=0.2 H=1.0 742-7 LOINC H EOS abs count 0.0 th/cmm L=0.0 H=0.5 711-2 LOINC BASO abs count 0.0 th/cmm L=0.0 H=0.2 704-7 LOINC IG abs count 0.1 th/cmm L=0.0 H=0.1 17553-4 LOINC NRBC abs count 0.0 mil/cmm L=0.0 H=0.0 43616-2 LOINC RBC 3.51 mil/cmm L=3.90 H=5.40 789-8 LOINC L HEMOGLOBIN 10.6 gm/dL L=12.0 H=16.0 718-7 LOINC L HEMATOCRIT 33 % L=37 H=47 4544-3 LOINC L MCV 93 fL L=82 H=92 787-2 LOINC H MCH 30.2 pg L=27.0 H=31.0 785-6 LOINC MCHC 32.5 % L=32.0 H=36.0 786-4 LOINC RDW-SD 48.5 fL L=39.0 H=49.0 788-0 LOINC PLATELET COUNT 79 th/cmm L=150 H=450 777-3 LOINC L Toxic gran 1+ Vaccuol neutr 1+ Giant plts present BASIC METABOLIC PANEL (BMP) - Collect Date/Time: 03/18/2024 18:00 [facility] ID: [id number] [address] [place], [place], [address] LOINC: 25407-0 Test Value Unit Reference Range Code Code System Flag GLUCOSE 147 mg/dL L=70 H=116 2345-7 LOINC H BUN 29 mg/dL L=7 H=17 3094-0 LOINC H CREATININE 1.15 mg/dL L=0.52 H=1.04 2160-0 LOINC H SODIUM SERUM 128 mmol/L L=136 H=145 2951-2 LOINC L POTASSIUM SERUM 5.1 mmol/L L=3.4 H=5.2 2823-3 LOINC CHLORIDE SERUM 102 mmol/L L=98 H=107 2075-0 LOINC CARBON DIOXIDE (CO2) 19 mmol/L L=22 H=30 2028-9 LOINC L ANION GAP 7.1 mmol/L 34694-4 LOINC CALCIUM SERUM 8.0 mg/dL L=8.4 H=10.2 29617-1 LOINC L AGE 83 years eGFR (non-Afr.Amer.) 45 mL/min 79932-1 LOINC eGFR (Afr-[place]) 55 mL/min 62927-1 LOINC NOVA GLUCOSE FINGER HEEL CAP ILLARY - Collect Date/Time: 03/18/2024 17:19 [facility] ID: [id number] [address] [place] [address], [id number] LOINC: 70916-6 Test Value Unit Reference Range Code Code System Flag GLUCOSE CAP 141 mg/dL L=70 H=116 77477-8 LOINC H NOVA GLUCOSE FINGER HEEL CAP ILLARY - Collect Date/Time: 03/18/2024 11:59 [facility] ID: [id number] [address] [place] [address], [id number] LOINC: 73594-4 Test Value Unit Reference Range Code Code System Flag GLUCOSE CAP 211 mg/dL L=70 H=116 27518-2 LOINC H LACTIC ACID - Collect Date/T ellis: 03/18/2024 08:00 [facility] ID: [id number] [address] [place] [address], [address] LOINC: Test Value Unit Reference Range Code Code System Flag LACTIC ACID 2.2 mmol/L L=0.7 H=2.1 65779-7 LOINC H NOVA GLUCOSE FINGER HEEL CAP ILLARY - Collect Date/Time: 03/18/2024 07:55 [facility] ID: [id number] [address] [place] [address], [id number] LOINC: 87553-8 Test Value Unit Reference Range Code Code System Flag GLUCOSE CAP 298 mg/dL L=70 H=116 99618-0 LOINC H NOVA GLUCOSE FINGER HEEL CAP ILLARY - Collect Date/Time: 03/18/2024 02:29 [facility] ID: [id number] [address] [place] [address], [id number] LOINC: 99447-1 Test Value Unit Reference Range Code Code System Flag GLUCOSE CAP 199 mg/dL L=70 H=116 97937-5 LOINC H CBC W/ DIFFERENTIAL* - Colle ct Date/Time: 03/18/2024 02:24 [facility] ID: [id number] [address] [place] [address], [address] LOINC: 58070-4 Test Value Unit Reference Range Code Code System Flag WBC 14.26 th/cmm L=5.00 H=10.00 6690-2 LOINC H NEUT % 83.7 % L=40.0 H=80.0 H LYMPH % 3.7 % L=10.0 H=50.0 L MONO % 11.6 % L=2.0 H=12.0 53793-8 LOINC EOS % 0.1 % L=0.0 H=8.0 BASO % 0.1 % L=0.0 H=3.0 IG % 0.8 % L=0.0 H=1.1 2514-8 LOINC NRBC % 0.0 % L=0.0 H=0.0 60350-8 LOINC NEUT abs count 11.9 th/cmm L=1.6 H=8.4 751-8 LOINC H LYMPH abs count 0.5 th/cmm L=1.5 H=4.0 731-0 LOINC L MONO abs count 1.7 th/cmm L=0.2 H=1.0 742-7 LOINC H EOS abs count 0.0 th/cmm L=0.0 H=0.5 711-2 LOINC BASO abs count 0.0 th/cmm L=0.0 H=0.2 704-7 LOINC IG abs count 0.1 th/cmm L=0.0 H=0.1 76589-1 LOINC NRBC abs count 0.0 mil/cmm L=0.0 H=0.0 13719-8 LOINC RBC 3.60 mil/cmm L=3.90 H=5.40 789-8 LOINC L HEMOGLOBIN 10.9 gm/dL L=12.0 H=16.0 718-7 LOINC L HEMATOCRIT 33 % L=37 H=47 4544-3 LOINC L MCV 91 fL L=82 H=92 787-2 LOINC MCH 30.3 pg L=27.0 H=31.0 785-6 LOINC MCHC 33.2 % L=32.0 H=36.0 786-4 LOINC RDW-SD 46.9 fL L=39.0 H=49.0 788-0 LOINC PLATELET COUNT 82 th/cmm L=150 H=450 777-3 LOINC L BASIC METABOLIC PANEL (BMP) - Collect Date/Time: 03/18/2024 02:24 [facility] ID: [id number] [address] [place], [place], [address] LOINC: 60119-4 Test Value Unit Reference Range Code Code System Flag GLUCOSE 199 mg/dL L=70 H=116 2345-7 LOINC H BUN 26 mg/dL L=7 H=17 3094-0 LOINC H CREATININE 1.01 mg/dL L=0.52 H=1.04 2160-0 LOINC SODIUM SERUM 131 mmol/L L=136 H=145 2951-2 LOINC L POTASSIUM SERUM 2.7 mmol/L L=3.4 H=5.2 2823-3 LOINC LL CHLORIDE SERUM 101 mmol/L L=98 H=107 2075-0 LOINC CARBON DIOXIDE (CO2) 25 mmol/L L=22 H=30 2028-9 LOINC ANION GAP 5.6 mmol/L 49679-4 LOINC CALCIUM SERUM 8.8 mg/dL L=8.4 H=10.2 71194-4 LOINC AGE 83 years eGFR (non-Afr.Amer.) 52 mL/min 12265-2 LOINC eGFR (Afr-[place]) 63 mL/min 22473-6 LOINC LACTIC ACID - Collect Date/T ellis: 03/18/2024 02:24 [facility] ID: [id number] [address] [place], [place], [address] LOINC: Test Value Unit Reference Range Code Code System Flag LACTIC ACID 2.2 mmol/L L=0.7 H=2.1 18019-9 LOINC H Social History Type Status Start Date End Date Code Code Syst em Smoking History Never smoker (Never Smoked) 716052115 SNOMED CT Sex Female Vital Signs Vital Sign Value Unit Pasco Value Pasco Unit Date/Time Recent/Initial? Code Code System Body Mass Index 25.47 kg/m2 03/17/2024 23:59 Initial 08503 -5 LOINC Systolic Blood Pressure 122 mm[Hg] 03/19/2024 07:39 Most Recent 8480- 6 LOINC Diastolic Blood Pressure 55 mm[Hg] 03/19/2024 07:39 Most Recent 8462- 4 LOINC Systolic Blood Pressure 115 mm[Hg] 03/17/2024 23:59 Initial 8480- 6 LOINC Diastolic Blood Pressure 48 mm[Hg] 03/17/2024 23:59 Initial 8462- 4 LOINC Body Surface Area 1.64 m2 03/17/2024 23:59 Initial 3140- 1 LOINC Height 156.210 0 cm 61.50 in 03/17/2024 23:59 Initial 8302- 2 LOINC O2 Saturation 94 % 2023 07:39 Most Recent 38568 -5 LOINC O2 Saturation 93 % 2023 23:59 Initial 09675 -5 LOINC Pulse 108.0 /min 03/19/2024 07:39 Most Recent 8867- 4 LOINC Pulse 106.0 /min 03/17/2024 23:59 Initial 8867- 4 LOINC Respiration 18 /min 03/19/20 07:39 Most Recent 9279- 1 LOINC Respiration 20 /min 03/17/20 23:59 Initial 9279- 1 LOINC Temperature 36.6 Carolann 97.9 F 03/19/20 24 10:39 Most Recent 8310- 5 LOINC Temperature 39.1 Carolann 102.4 F 03/17/20 24 23:59 Initial 8310- 5 LOINC Weight 64.10 kg 141.31 lbs 03/18/2024 11:36 Most Recent 97264 -7 LOINC Weight 62.14 kg 137.00 lbs 03/17/2024 23:59 Initial 84172 -7 LOINC Medications Medication Start Date End Date Route Frequency Dose Code Code System Medication Instructions Home Meds Atorvastatin Calcium 20MG Oral Tablet 08/20/2019 Unknown ORAL BEDTIME 20 MILLIGRAMS 667862 RxNorm TAKE 20 MILLIGRAMS ORAL BEDTIME Gabapentin 800MG Oral Tablet 08/20/2019 03/18/20 24 ORAL TWICE A DAY 1 TABLET 654261 RxNorm TAKE 1 TABLET ORAL TWICE A DAY Lisinopril 20MG Oral Tablet 08/20/2019 03/18/20 24 ORAL DAILY 20 MILLIGRAMS 895802 RxNorm TAKE 20 MILLIGRAMS ORAL DAILY glipiZIDE 10MG Oral Tablet, Extended Release 08/20/2019 Unknown ORAL DAILY 10 MILLIGRAMS 185629 RxNorm TAKE 10 MILLIGRAMS ORAL DAILY metFORMIN HCl 1000MG Oral Tablet 08/20/2019 Unknown ORAL TWICE A DAY WITH FOOD 1000 MILLIGRAMS 781563 RxNorm TAKE 1000 MILLIGRAMS ORAL TWICE A DAY WITH FOOD Cephalexin 500MG Oral Tablet 03/17/2024 03/19/20 24 ORAL TWICE A DAY 1 TABLET 417436 RxNorm TAKE 1 TABLET ORAL TWICE A DAY x 7 days Acetaminophen 500MG Oral Tablet 03/18/2024 03/18/20 24 ORAL NEEDED EVERY 6 HOURS 2 TABLET 461916 RxNorm TAKE 2 TABLET (OR 3 TABLETS regular strength 325mg) ORAL EVERY 6 HOURS FOR 1-2 DAYS THEN NEEDED FOR Fever/Pain (NEXT DOSES 6AM AND 12 NOON) Ibuprofen 200MG Oral Tablet 03/18/2024 03/18/20 24 ORAL EVERY 6 HOURS 2 TABLET 684868 RxNorm TAKE 2 TABLET ORAL EVERY 6 HOURS FOR 24 HOURS THEN NEEDED. (NEXT DOSES at 4AM AND 10AM) Aspirin 81MG Oral Tablet, Enteric Coated 03/19/2024 Unknown ORAL DAILY 81 MILLIGRAMS 844263 RxNorm TAKE 81 MILLIGRAMS ORAL DAILY Carvedilol 6.25MG Oral Tablet 03/19/2024 Unknown ORAL TWICE A DAY 6.25 MILLIGRAMS 605758 RxNorm TAKE 6.25 MILLIGRAMS ORAL TWICE A DAY Fish Oil [place]-3 1000 MG Oral Capsule, Liquid Filled 03/19/2024 Unknown ORAL DAILY 1000 MG RxNorm TAKE 10 00 MG ORAL DAILY Gabapentin 600MG Oral Tablet 03/19/2024 Unknown ORAL TWICE A DAY 600 MILLIGRAMS 884913 RxNorm TAKE 600 MILLIGRAMS ORAL TWICE A DAY Lisinopril 10MG Oral Tablet 03/19/2024 Unknown ORAL DAILY 10 MILLIGRAMS 858895 RxNorm TAKE 10 MILLIGRAMS ORAL DAILY Multiple [...] Tablet 03/19/2024 Unknown ORAL BEDTIME 0.5 MILLIGRAMS 473570 RxNorm TAKE 0.5 MILLIGRAMS ORAL BEDTIME Ventolin HFA 0.09MG/1Actuat ion Inhalation Suspension 03/19/2024 Unknown INHALA TION NEEDED EVERY 4 HOURS 2 unit(s) 980323 RxNorm 2 EACH INHALATION NEEDED EVERY 4 HOURS Victoza 6MG/1ML Subcutaneous Solution 03/19/2024 Unknown SUBCUT ANEOUS 1.8 MILLILITERS 110387 RxNorm INJECT 1.8 MILLILITERS SUBCUTANEOUS Cefdinir 300MG Oral Capsule 03/20/2024 Unknown ORAL [...] Code Code System URINARY TRACT INFECTION active 492867 05 SNOMED-CT HYPOTENSION active 86068488 SNOMED-C T HYPOKALEMIA active 14635659 SNOMED-C T SEPSIS active 82434369 SNOMED-CT CIRRHOSIS - NON-ALCOHOLIC 01/02/2022 resolved 266 127153 SNOMED-CT HTN 08/20/2019 resolved 95450235 SNOMED-CT HIGH CHOLESTEROL 10/01/2023 resolved 94664212 SN OMED-CT PERSONAL HISTORY OF BLADDER CA 08/20/2019 resolved 018714565 SNOMED-CT NON-INSULIN DEPENDENT DIABETES MELLITUS 08/20/2019 resolved 14616131 SNOMED-CT 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 588657229 SNOMED-CT Allergies and Adverse Reactions Allergy Substance Reaction Severity Start Date Concern Status Co de Code System CODEINE Active 2670 RxNorm Plan of Treatment NM MPI STR/RST 05/15/2023 CT CHEST W/O CONTRAST 05/18/2022 CT CHEST W/O CONTRAST 03/26/2022 MRI BRAIN W/O CONTRAST 01/25/2021 Plan Continue ceftriaxone pending urine culture Continue potassium replacement as needed Follow-up labs this evening to include CBC and BMP And lactic acid Hold torsemide in the setting of hypotension, possibly resume at a decreased dose in the future Hold lisinopril and carvedilol in the setting of hypotension. Continue to monitor blood pressures, consider resuming blood pressure medications if indicated, would start with the carvedilol. Continue metformin and glipizide for diabetes. Monitor blood sugars, cover with Humalog sliding scale as indicated Patient is feeling much better and hopefully be able to be discharged home on oral antibiotics. Personal Care Team Section Performer Name Performer Role Active Date Inactive Da te Discharge Summary Notes [facility] 03/19/2024 09:17 Patient Name: NICK MENDIETA Date of Service: 03/19/2024 09:14 Discharge Date: 03/19/2024 Admission Diagnosis: UTI, Hypokalemia Discharge Diagnosis: Same : Primary Care Physician: ERAN Viera Recommendations: Stop taking your torsemide and discuss with your primary care doctor. Finish taking your antibiotic I am prescribing today: TAKE 1 CAPSULE ORAL TWICE A DAY STARTING 03/20/2024 You can stop taking cephalexin at home (the other antibiotic you have). Recheck BMP Next Saturday Discharge Medications: Discharge Meds List Aspirin 81MG Oral Tablet, Enteric Coated, TAKE 81 MILLIGRAMS ORAL DAILY Atorvastatin Calcium 20MG Oral Tablet, TAKE 20 MILLIGRAMS ORAL BEDTIME Carvedilol 6.25MG Oral Tablet, TAKE 6.25 MILLIGRAMS ORAL TWICE A DAY Cefdinir 300MG Oral Capsule, TAKE 1 CAPSULE ORAL TWICE A DAY STARTING 03/20/2024 Fish Oil [place]-3 1000 MG Oral Capsule, Liquid Filled, TAKE 1000 MG ORAL DAILY Gabapentin 600MG Oral Tablet, TAKE 600 MILLIGRAMS ORAL TWICE A DAY glipiZIDE 10MG Oral Tablet, Extended Release, TAKE 10 MILLIGRAMS ORAL DAILY Lisinopril 10MG Oral Tablet, TAKE 10 MILLIGRAMS ORAL DAILY metFORMIN HCl 1000MG Oral Tablet, TAKE 1000 MILLIGRAMS ORAL TWICE A DAY WITH FOOD Multiple Vitamins Oral Tablet, TAKE 1 EACH ORAL DAILY Nitroglycerin 0.4MG Sublingual Tablet, DISSOLVE 0.4 MILLIGRAMS SUBLINGUAL NEEDED Omeprazole 40MG Oral Capsule, Delayed Release, TAKE 40 MILLIGRAMS ORAL DAILY Pramipexole Dihydrochloride 0.5MG Oral Tablet, TAKE 0.5 MILLIGRAMS ORAL BEDTIME Ventolin HFA 0.09MG/1Actuation Inhalation Suspension, 2 EACH INHALATION NEEDED EVERY 4 HOURS Victoza 6MG/1ML Subcutaneous Solution, INJECT 1.8 MILLILITERS SUBCUTANEOUS History of Present Illness 84-year-old woman who was seen in the emergency department yesterday for fever, found to have a urinary tract infection. She declined hospitalization at that time, was discharged home on oral antibiotics, took Tylenol at 6 PM last evening. At about 11:30 PM she started having shaking chills at home. Her convinced her to return to the emergency department. She reported that she overall felt much better than she had earlier in the day. She did have some nausea and vomiting earlier but this had resolved. She report reports she vomited 3 or 4 times. She did take her evening blood pressure medication (Carvedilol) before she returned to the hospital. In the ER she was found to be hypotensive with blood pressures that were persistently in the 75-85/39-40 range. She was provided with intravenous fluids with potassium supplementation, she was hypokalemic when she returned to the emergency department with potassium of 2.7. She was referred for admission to the hospital. She was given a dose of ceftriaxone this morning. Blood pressure is now improved to 103/46. On further questioning, patient tells me she did not take her torsemide yesterday or today. She was just started on this a couple of weeks ago for increased lower extremity edema.She reports edema has been much improved recently. Hospital Course Patient was treated with ceftriaxone and did quite well. She received potassium supplementation and torsemide was held. She had a downtrending white blood cell count and improved symptomatology. Patient will need to discuss ongoing torsemide with her PCP. This was discontinued on discharge. She can stop taking cephalexin and should get repeat labs next week. I have discharged her on cefdinir to finish her course of treatment for her UTI. PCP can follow-up on culture data should symptoms get worse. Labs last 72 hours Test Results Units Reference Range Collected BASIC METABOLIC PANEL (BMP) 03/19/2024 07:50 WBC 12.62 H th/cmm L=5.00 H=10.00 03/19/2024 07:50 HEMOGLOBIN 10.8 L gm/dL L=12.0 H=16.0 03/19/2024 07:50 HEMATOCRIT 33 L % L=37 H=47 03/19/2024 07:50 PLATELET COUNT 89 L th/cmm L=150 H=450 03/19/2024 07:50 Ovalocytes 2+ 03/19/2024 07:50 LACTIC ACID 03/19/2024 07:50 MAGNESIUM SERUM* 03/19/2024 07:50 GLUCOSE 147 H mg/dL L=70 H=116 03/18/2024 18:00 BUN 29 H mg/dL L=7 H=17 03/18/2024 18:00 CREATININE 1.15 H mg/dL L=0.52 H=1.04 03/18/2024 18:00 SODIUM SERUM 128 L mmol/L L=136 H=145 03/18/2024 18:00 POTASSIUM SERUM 5.1 mmol/L L=3.4 H=5.2 03/18/2024 18:00 CHLORIDE SERUM 102 mmol/L L=98 H=107 03/18/2024 18:00 CARBON DIOXIDE (CO2) 19 L mmol/L L=22 H=30 03/18/2024 18:00 ANION GAP 7.1 mmol/L 03/18/2024 18:00 CALCIUM SERUM 8.0 L mg/dL L=8.4 H=10.2 03/18/2024 18:00 WBC 13.71 H th/cmm L=5.00 H=10.00 03/18/2024 18:00 HEMOGLOBIN 10.6 L gm/dL L=12.0 H=16.0 03/18/2024 18:00 HEMATOCRIT 33 L % L=37 H=47 03/18/2024 18:00 PLATELET COUNT 79 L th/cmm L=150 H=450 03/18/2024 18:00 Toxic gran 1+ 03/18/2024 18:00 LACTIC ACID 2.3 H mmol/L L=0.7 H=2.1 03/18/2024 18:00 LACTIC ACID 2.2 H mmol/L L=0.7 H=2.1 03/18/2024 08:00 GLUCOSE 199 H mg/dL L=70 H=116 03/18/2024 02:24 BUN 26 H mg/dL L=7 H=17 03/18/2024 02:24 CREATININE 1.01 mg/dL L=0.52 H=1.04 03/18/2024 02:24 SODIUM SERUM 131 L mmol/L L=136 H=145 03/18/2024 02:24 POTASSIUM SERUM 2.7 LL mmol/L L=3.4 H=5.2 03/18/2024 02:24 CHLORIDE SERUM 101 mmol/L L=98 H=107 03/18/2024 02:24 CARBON DIOXIDE (CO2) 25 mmol/L L=22 H=30 03/18/2024 02:24 ANION GAP 5.6 mmol/L 03/18/2024 02:24 CALCIUM SERUM 8.8 mg/dL L=8.4 H=10.2 03/18/2024 02:24 WBC 14.26 H th/cmm L=5.00 H=10.00 03/18/2024 02:24 HEMOGLOBIN 10.9 L gm/dL L=12.0 H=16.0 03/18/2024 02:24 HEMATOCRIT 33 L % L=37 H=47 03/18/2024 02:24 PLATELET COUNT 82 L th/cmm L=150 H=450 03/18/2024 02:24 LACTIC ACID 2.2 H mmol/L L=0.7 H=2.1 03/18/2024 02:24 LACTIC ACID 1.5 mmol/L L=0.7 H=2.1 03/17/2024 16:50 NT-proBNP 916.0 H pg/mL L=0.0 H=450 03/17/2024 16:32 WBC 10.72 H th/cmm L=5.00 H=10.00 03/17/2024 16:32 HEMOGLOBIN 11.3 L gm/dL L=12.0 H=16.0 03/17/2024 16:32 HEMATOCRIT 35 L % L=37 H=47 03/17/2024 16:32 PLATELET COUNT 86 L th/cmm L=150 H=450 03/17/2024 16:32 GLUCOSE 195 H mg/dL L=70 H=116 03/17/2024 16:32 BUN 23 H mg/dL L=7 H=17 03/17/2024 16:32 CREATININE 0.73 mg/dL L=0.52 H=1.04 03/17/2024 16:32 SODIUM SERUM 136 mmol/L L=136 H=145 03/17/2024 16:32 POTASSIUM SERUM 3.4 mmol/L L=3.4 H=5.2 03/17/2024 16:32 CHLORIDE SERUM 104 mmol/L L=98 H=107 03/17/2024 16:32 CARBON DIOXIDE (CO2) 24 mmol/L L=22 H=30 03/17/2024 16:32 ANION GAP 8.5 mmol/L 03/17/2024 16:32 CALCIUM SERUM 9.1 mg/dL L=8.4 H=10.2 03/17/2024 16:32 BILIRUBIN TOTAL 1.0 mg/dL L=0.2 H=1.3 03/17/2024 16:32 ALK. PHOS. 178 H U/L L=38 H=126 03/17/2024 16:32 SGOT (AST) 33 U/L L=14 H=36 03/17/2024 16:32 SGPT (ALT) 33 U/L L=4 H=35 03/17/2024 16:32 TOTAL PROTEIN 6.8 gm/dL L=6.0 H=8.0 03/17/2024 16:32 ALBUMIN 3.8 gm/dL L=3.4 H=5.0 03/17/2024 16:32 TROPONIN-I <0.012 ng/mL L=0.000 H=0.034 03/17/2024 16:32 Specimen seq. RANDOM 03/17/2024 16:32 COVID NEGATIVE Normal: Negative 03/17/2024 16:10 INFLUENZA A DNA NEGATIVE Normal: Negative 03/17/2024 16:10 INFLUENZA B DNA NEGATIVE Normal: Negative 03/17/2024 16:10 RSV DNA NEGATIVE Normal: Negative 03/17/2024 16:10 COLLECTION MODE: CLEAN CATCH 03/17/2024 16:10 Color YELLOW yellow 03/17/2024 16:10 Appearance CLOUDY clear 03/17/2024 16:10 Glucose urine NEGATIVE negative mg/dl 03/17/2024 16:10 Bilirubin NEGATIVE negative 03/17/2024 16:10 Ketones NEGATIVE negative mg/dl 03/17/2024 16:10 Spec gravity 1.020 1.003 - 1.030 03/17/2024 16:10 pH urine 5.5 5.0 - 7.0 03/17/2024 16:10 Protein 100 A negative mg/dl 03/17/2024 16:10 Urobilinogen 0.2 03/17/2024 16:10 Nitrite POSITIVE A negative 03/17/2024 16:10 Blood LARGE A negative 03/17/2024 16:10 Leukocytes MODERATE A negative 03/17/2024 16:10 WBCs 25-100 0-5 / hpf 03/17/2024 16:10 Epith cells none 0-5 / hpf 03/17/2024 16:10 Crystals none none 03/17/2024 16:10 Bacteria large none 03/17/2024 16:10 Mucus none none 03/17/2024 16:10 Casts none none /lpf 03/17/2024 16:10 Other 03/17/2024 16:10 History and Physical Notes [facility] 03/18/2024 17:08 Patient Name Age Sex Admission Date/Time NICK MENDIETA 1940 83 years Female 03/18/2024 06:15 03/18/2024 16:34 Admission Date: 03/18/2024 Reason for Admission: Sepsis due to UTI, hypotension, fever Code Status: Attending Physician: Rachel Gr MD Primary Care Physician: ERAN Viera History of Present Illness Chief Complaint: URINARY ISSUE FEVER 84-year-old woman who was seen in the emergency department yesterday for fever, found to have a urinary tract infection. She declined hospitalization at that time, was discharged home on oral antibiotics, took Tylenol at 6 PM last evening. At about 11:30 PM she started having shaking chills at home. Her convinced her to return to the emergency department. She reported that she overall felt much better than she had earlier in the day. She did have some nausea and vomiting earlier but this had resolved. She report reports she vomited 3 or 4 times. She did take her evening blood pressure medication (Carvedilol) before she returned to the hospital. In the ER she was found to be hypotensive with blood pressures that were persistently in the 75-85/39-40 range. She was provided with intravenous fluids with potassium supplementation, she was hypokalemic when she returned to the emergency department with potassium of 2.7. She was referred for admission to the hospital. She was given a dose of ceftriaxone this morning. Blood pressure is now improved to 103/46. On further questioning, patient tells me she did not take her torsemide yesterday or today. She was just started on this a couple of weeks ago for increased lower extremity edema.She reports edema has been much improved recently. Past Medical/Surgical/Family/Social History Past Medical History HTN, Personal history of bladder Ca, , Treated with intravesical chemo Non-insulin dependent diabetes mellitus, Nonalcoholic steatohepatitis (BA), Cirrhosis - non-alcoholic, High cholesterol, Echocardiogram March 28, 2023: LVEF 65%. Diastolic indices appear abnormal suggesting elevated left-sided filling pressures. No wall motion abnormalities. Right ventricle normal size and function. Aortic valve trileaflet. Mild aortic stenosis. Aortic valve area 1.5 cm. Stress test May 15, 2023: Average functionality. Stop because of fatigue and dyspnea, develop 5/10 throat burning with exercise, resolved by 3-minute recovery. No EKG changes, no arrhythmia, normal hemodynamics. Normal perfusion. LVEF 70%. Surgery List APPENDECTOMY, Total abdominal hysterectomy, Cholecystectomy, Family History List: There is a strong family history of BA and many female family members. Past Social History: Alcohol use: Denies Drug use: Denies Tobacco: Denies , she and her have 4 grown children. She and her live at home with her dog. Allergy List CODEINE, Medication Active Home Meds metFORMIN HCl 1000MG Oral Tablet, 1000 MILLIGRAMS, ORAL, TWICE A DAY WITH FOOD, Existing Prescription Gabapentin 600MG Oral Tablet, 600 MILLIGRAMS, ORAL, TWICE A DAY Ventolin HFA 0.09MG/1Actuation Inhalation Suspension, 2 EACH, INHALATION, NEEDED EVERY 4 HOURS Aspirin 81MG Oral Tablet, Enteric Coated, 81 MILLIGRAMS, ORAL, DAILY Multiple Vitamins Oral Tablet, 1 EACH, ORAL, DAILY Nitroglycerin 0.4MG Sublingual Tablet, 0.4 MILLIGRAMS, SUBLINGUAL, NEEDED Torsemide 10MG Oral Tablet, 10 MILLIGRAMS, ORAL, DAILY Pramipexole Dihydrochloride 0.5MG Oral Tablet, 0.5 MILLIGRAMS, ORAL, BEDTIME Omeprazole 40MG Oral Capsule, Delayed Release, 40 MILLIGRAMS, ORAL, DAILY Lisinopril 10MG Oral Tablet, 10 MILLIGRAMS, ORAL, DAILY Fish Oil [place]-3 1000 MG Oral Capsule, Liquid Filled, 1000 MG, ORAL, DAILY Carvedilol 6.25MG Oral Tablet, 6.25 MILLIGRAMS, ORAL, TWICE A DAY Victoza 6MG/1ML Subcutaneous Solution, 1.8 MILLILITERS, SUBCUTANEOUS, , Previous Home Med Cephalexin 500MG Oral Tablet, 1 TABLET, ORAL, TWICE A DAY, Existing Prescription glipiZIDE 10MG Oral Tablet, Extended Release, 10 MILLIGRAMS, ORAL, DAILY, Existing Prescription Atorvastatin Calcium 20MG Oral Tablet, 20 MILLIGRAMS, ORAL, BEDTIME, Existing Prescription Medication Reconciliation Source Patient Family PCP List Home List Pharmacy [facility] or Facility list Review of Systems Constitutional: (-) fever (-) weight changes Eyes: (-) blurry vision (-) eye pain ENT: (-) sore throat (-) ear pain (-) epistaxis Neck: (-) lymphadenopathy Respiratory: (-) SOB (-) cough Heart: (-) chest pain (-) palpitations Abdomen: (-) nausea (-) vomiting (-) diarrhea Genitourinary: (-) urinary frequency (-) urgency Extremities: (-) edema Skin: (-) rashes (-) lesions Neuro: (-) headache (-) dizziness. Physical Exam Date/Time BP (mm/Hg) Heart Rate Resp Temp (C) SPO2% O2 Device 03/18/2024 14:04 103/46 91 18 36.5 TEMPORAL SCANNING 89 % Room Air 21% GENERAL: Elderly woman appears comfortable, no acute distress EYES: Pupils are equal, round and reactive to light. Sclerae are white without injection or icterus. HENT: Normocephalic, atraumatic. Mucus membranes moist. Epistaxis absent. NECK: Supple. No thyromegaly or adenopathy. CHEST/LUNGS: Clear to auscultation bilaterally. No rales, rhonchi or wheezes. HEART: Regular rate and rhythm. No murmurs, rubs or gallop. ABDOMEN: Soft, non-distended, non-tender. Normal bowel sounds x4Q. EXTREMITIES: No cyanosis, edema. NEUROLOGIC: Muscle strength is graded 5/5 in the upper and lower extremities bilaterally. Sensation to pain, touch intact. PSYCHIATRIC: The patient is oriented x4. Mood and affect are appropriate. Pre-Admission Studies: Labs last 24 hours Test Results Units Reference Range Collected LACTIC ACID 2.2 H mmol/L L=0.7 H=2.1 03/18/2024 08:00 GLUCOSE 199 H mg/dL L=70 H=116 03/18/2024 02:24 BUN 26 H mg/dL L=7 H=17 03/18/2024 02:24 CREATININE 1.01 mg/dL L=0.52 H=1.04 03/18/2024 02:24 SODIUM SERUM 131 L mmol/L L=136 H=145 03/18/2024 02:24 POTASSIUM SERUM 2.7 LL mmol/L L=3.4 H=5.2 03/18/2024 02:24 CHLORIDE SERUM 101 mmol/L L=98 H=107 03/18/2024 02:24 CARBON DIOXIDE (CO2) 25 mmol/L L=22 H=30 03/18/2024 02:24 ANION GAP 5.6 mmol/L 03/18/2024 02:24 CALCIUM SERUM 8.8 mg/dL L=8.4 H=10.2 03/18/2024 02:24 WBC 14.26 H th/cmm L=5.00 H=10.00 03/18/2024 02:24 HEMOGLOBIN 10.9 L gm/dL L=12.0 H=16.0 03/18/2024 02:24 HEMATOCRIT 33 L % L=37 H=47 03/18/2024 02:24 PLATELET COUNT 82 L th/cmm L=150 H=450 03/18/2024 02:24 LACTIC ACID 2.2 H mmol/L L=0.7 H=2.1 03/18/2024 02:24 LACTIC ACID 1.5 mmol/L L=0.7 H=2.1 03/17/2024 16:50 Radiology/EKG: Problem List Sepsis Hypokalemia Hypotension Urinary tract infection Plan Continue ceftriaxone pending urine culture Continue potassium replacement as needed Follow-up labs this evening to include CBC and BMP And lactic acid Hold torsemide in the setting of hypotension, possibly resume at a decreased dose in the future Hold lisinopril and carvedilol in the setting of hypotension. Continue to monitor blood pressures, consider resuming blood pressure medications if indicated, would start with the carvedilol. Continue metformin and glipizide for diabetes. Monitor blood sugars, cover with Humalog sliding scale as indicated Patient is feeling much better and hopefully be able to be discharged home on oral antibiotics. Patient admitted as observation as I anticipate them to be here less than 2 midnights due to symptoms of UTI with criteria met for sepsis with hypotension, fever and leukocytosis.
--- OUTSIDE RECORDS SUMMARY | 2024-03-23 12:33 | XMS_ITS ---
Author Organization Unknown Address [address] [place] [address] [phone] Phone Care Team Providers Care Bus Assistant Name Role Phone ANKIT TYLER Registered Nurse Unavailable LUCY Grimaldo Attending Unavailable KEYANA Y[facility] Unavailable ERAN Viera Primary Unavailable UNLISTED PROVIDER - REQUESTED Xhandoff Un available Results LACTIC ACID - Collect Date/T ellis: 03/17/2024 16:50 [facility] ID: [id number] [address] [place] [address], [address] LOINC: Test Value Unit Reference Range Code Code System Flag LACTIC ACID 1.5 mmol/L L=0.7 H=2.1 47504-5 LOINC CBC W/ DIFFERENTIAL* - Colle ct Date/Time: 03/17/2024 16:32 [facility] ID: [id number] [address] [place] [address], [address] LOINC: 87608-2 Test Value Unit Reference Range Code Code System Flag WBC 10.72 th/cmm L=5.00 H=10.00 6690-2 LOINC H NEUT % 79.2 % L=40.0 H=80.0 LYMPH % 5.7 % L=10.0 H=50.0 L MONO % 14.2 % L=2.0 H=12.0 67189-2 LOINC H EOS % 0.1 % L=0.0 H=8.0 BASO % 0.1 % L=0.0 H=3.0 IG % 0.7 % L=0.0 H=1.1 2514-8 LOINC NRBC % 0.0 % L=0.0 H=0.0 36903-1 LOINC NEUT abs count 8.5 th/cmm L=1.6 H=8.4 751-8 LOINC H LYMPH abs count 0.6 th/cmm L=1.5 H=4.0 731-0 LOINC L MONO abs count 1.5 th/cmm L=0.2 H=1.0 742-7 LOINC H EOS abs count 0.0 th/cmm L=0.0 H=0.5 711-2 LOINC BASO abs count 0.0 th/cmm L=0.0 H=0.2 704-7 LOINC IG abs count 0.1 th/cmm L=0.0 H=0.1 21810-2 LOINC NRBC abs count 0.0 mil/cmm L=0.0 H=0.0 13998-1 LOINC RBC 3.86 mil/cmm L=3.90 H=5.40 789-8 LOINC L HEMOGLOBIN 11.3 gm/dL L=12.0 H=16.0 718-7 LOINC L HEMATOCRIT 35 % L=37 H=47 4544-3 LOINC L MCV 92 fL L=82 H=92 787-2 LOINC MCH 29.3 pg L=27.0 H=31.0 785-6 LOINC MCHC 31.9 % L=32.0 H=36.0 786-4 LOINC L RDW-SD 47.0 fL L=39.0 H=49.0 788-0 LOINC PLATELET COUNT 86 th/cmm L=150 H=450 777-3 LOINC L BANDS % 18 BNP (PRO-B NATRIURETIC PEPTI DE) - Collect Date/Time: 03/17/2024 16:32 [facility] ID: [id number] [address] [place], [place], [address] LOINC: 03283-3 Test Value Unit Reference Range Code Code System Flag NT-proBNP 916.0 pg/mL L=0.0 H=450 38703-0 LOINC H COMPREHENSIVE METABOLIC PANE L (CMP) - Collect Date/Time: 03/17/2024 16:32 [facility] ID: [id number] [address], [place], [address] LOINC: 80272-8 Test Value Unit Reference Range Code Code System Flag GLUCOSE 195 mg/dL L=70 H=116 2345-7 LOINC H BUN 23 mg/dL L=7 H=17 3094-0 LOINC H CREATININE 0.73 mg/dL L=0.52 H=1.04 2160-0 LOINC SODIUM SERUM 136 mmol/L L=136 H=145 2951-2 LOINC POTASSIUM SERUM 3.4 mmol/L L=3.4 H=5.2 2823-3 LOINC CHLORIDE SERUM 104 mmol/L L=98 H=107 2075-0 LOINC CARBON DIOXIDE (CO2) 24 mmol/L L=22 H=30 2028-9 LOINC ANION GAP 8.5 mmol/L 68861-9 LOINC CALCIUM SERUM 9.1 mg/dL L=8.4 H=10.2 20569-5 LOINC BILIRUBIN TOTAL 1.0 mg/dL L=0.2 H=1.3 1975-2 LOINC ALK. PHOS. 178 U/L L=38 H=126 6768-6 LOINC H SGOT (AST) 33 U/L L=14 H=36 1920-8 LOINC SGPT (ALT) 33 U/L L=4 H=35 1742-6 LOINC TOTAL PROTEIN 6.8 gm/dL L=6.0 H=8.0 2885-2 LOINC ALBUMIN 3.8 gm/dL L=3.4 H=5.0 1751-7 LOINC AGE 83 years eGFR (non-Afr.Amer.) 76 mL/min 83637-1 LOINC eGFR (Afr-Djiboutian) 92 mL/min 42745-9 LOINC TROPONIN-I* - Collect Date/T ellis: 03/17/2024 16:32 [facility] ID: [id number] [address] [place], [place], [address] LOINC: 73851-7 Test Value Unit Reference Range Code Code System Flag TROPONIN-I < 0.012 ng/mL L=0.000 H=0.034 58320-0 LOINC Specimen seq. [facility] COVID FLU RSV GENEXPE RT - Collect Date/Time: 03/17/2024 16:10 [facility] ID: [id number] [address] [place], [place], [id number] LOINC: 39704-4 Test Value Unit Reference Range Code Code System Flag COVID NEGATIVE Normal: Negative 65816-7 LOINC INFLUENZA A DNA NEGATIVE Normal: Negative 48956-5 LOINC INFLUENZA B DNA NEGATIVE Normal: Negative 33282-4 LOINC RSV DNA NEGATIVE Normal: Negative 29362-4 LOINC URINALYSIS WITH MICROSCOPIC* - Collect Date/Time: 03/17/2024 16:10 [facility] ID: [id number] [address] [place], [place], [address] LOINC: 37166-2 Test Value Unit Reference Range Code Code System Flag COLLECTION MODE: CLEAN CATCH 93555-1 LOINC Color YELLOW yellow 5778-6 LOINC Appearance CLOUDY clear 5767-9 LOINC Glucose urine NEGATIVE negative mg/dl 76598-0 LOINC Bilirubin NEGATIVE negative 5770-3 LOINC Ketones NEGATIVE negative mg/dl 2514-8 LOINC Spec gravity 1.020 1.003 - 1.030 5811-5 LOINC pH urine 5.5 5.0 - 7.0 2756-5 LOINC Protein 100 negative mg/dl 11587-1 LOINC A Urobilinogen 0.2 <or= 1 EU/dl 46625-3 LOINC Nitrite POSITIVE negative 5802-4 LOINC A Blood LARGE negative 5794-3 LOINC A Leukocytes MODERATE negative 87330-8 LOINC A WBCs 25-100 0-5 / hpf 96429-9 LOINC RBCs 10-25 0-5 / hpf 49595-3 LOINC Epith cells none 0-5 / hpf Crystals none none Bacteria large none Mucus none none Casts none none /lpf Other XR CHEST 2V PA AND LATERAL - Completed: 03/17/2024 16:20 LOINC: [facility] [place], [place] [address] RADIOLOGY NUTRITION TEACHER REPORT Patient Name: NICK MENDIETA MRN: Sex: : Age: [id number] F 1940 83 Account: Accession: Admit: StayType: [id number] 03/17/2024 E Ordered: Order ID: Submitted: Ordering Provider: 03/17/2024 16:03 [id number] NGOZI MOSLEY Completed: Technologist: Resulted: 03/17/2024 16:09 DANNA 03/17/2024 16:28 EXAMINATION: XR CHEST 2V PA AND LATERAL CLINICAL HISTORY: Reason for Chest: Pneumonia Add'l Info: TECHNIQUE: PA and lateral views of the chest COMPARISON: 12/06/2023, 03/19/2023 FINDINGS: Lungs are well expanded. No airspace consolidation or acute lesion. No pleural effusion. Cardiac and mediastinal contours within normal limits and unchanged. No central vascular congestion or pulmonary edema. No acute bone abnormality. Cholecystectomy clips the right upper quadrant. IMPRESSION: Stable interval exam, no evidence of pneumonia. Thank you for letting us participate in the care of this patient. If you are a health care provider and have any questions regarding this report, please contact the number below. For patients who have questions please contact the health home health care respiratory therapist that requested your imaging first. Social History Type Status Start Date End Date Code Code Syst em Smoking History Never smoker (Never Smoked) 829244533 SNOMED CT Sex Female Vital Signs Vital Sign Value Unit [place] Value [place] Unit Date/Time Recent/Initial? Code Code System Body Mass Index 25.70 kg/m2 03/17/2024 15:07 Initial 46024 -5 LOINC Systolic Blood Pressure 99 mm[Hg] 03/17/2024 17:42 Most Recent 8480- 6 LOINC Diastolic Blood Pressure 57 mm[Hg] 03/17/2024 17:42 Most Recent 8462- 4 LOINC Systolic Blood Pressure 129 mm[Hg] 03/17/2024 15:07 Initial 8480- 6 LOINC Diastolic Blood Pressure 64 mm[Hg] 03/17/2024 15:07 Initial 8462- 4 LOINC Body Surface Area 1.63 m2 03/17/2024 15:07 Initial 3140- 1 LOINC Height 154.940 0 cm 61.00 in 03/17/2024 15:07 Initial 8302- 2 INC O2 Saturation 98 % 2023 17:42 Most Recent 81526 -5 INC O2 Saturation 98 % 2023 15:07 Initial 72027 -5 LOINC Pulse 102.0 /min 03/17/2024 17:42 Most Recent 8867- 4 LOINC Pulse 114.0 /min 03/17/2024 15:07 Initial 8867- 4 LOINC Respiration 20 /min 03/17/20 17:42 Most Recent 9279- 1 LOINC Respiration 20 /min 03/17/20 15:07 Initial 9279- 1 LOINC Temperature 37.0 Carolann 98.6 F 03/17/20 17:42 Most Recent 8310- 5 LOINC Temperature 38.4 Carolann 101.1 F 03/17/20 24 15:07 Initial 8310- 5 LOINC Weight 61.69 kg 136.00 lbs 03/17/2024 15:07 Initial 64456 -7 [facility] Medications Medication Start Date End Date Route Frequency Dose Code Code System Medication Instructions Home Meds Atorvastatin Calcium 20MG Oral Tablet 08/20/2019 Unknown ORAL BEDTIME 20 MILLIGRAMS 836752 RxNorm TAKE 20 MILLIGRAMS ORAL BEDTIME Fish Oil 1000MG Oral Capsule, Liquid Filled 08/20/2019 03/18/20 24 ORAL DAILY 3 CAPSULE 060203 RxNorm TAKE 3 CAPSULE ORAL DAILY Gabapentin 800MG Oral Tablet 08/20/2019 03/18/20 24 ORAL TWICE A DAY 1 TABLET 079727 RxNorm TAKE 1 TABLET ORAL TWICE A DAY Lisinopril 20MG Oral Tablet 08/20/2019 03/18/20 24 ORAL DAILY 20 MILLIGRAMS 271175 RxNorm TAKE 20 MILLIGRAMS ORAL DAILY Multiple Vitamin Formula Oral Tablet 08/20/2019 03/18/20 24 ORAL DAILY 1 unit(s) 6477987 RxNorm TAKE 1 EACH ORAL DAILY glipiZIDE 10MG Oral Tablet, Extended Release 08/20/2019 Unknown ORAL DAILY 10 MILLIGRAMS 502706 RxNorm TAKE 10 MILLIGRAMS ORAL DAILY metFORMIN HCl 1000MG Oral Tablet 08/20/2019 Unknown ORAL TWICE A DAY WITH FOOD 1000 MILLIGRAMS 313448 RxNorm TAKE 1000 MILLIGRAMS ORAL TWICE A DAY WITH FOOD Cephalexin 500MG Oral Tablet 03/17/2024 03/19/20 24 ORAL TWICE A DAY 1 TABLET 537488 RxNorm TAKE 1 TABLET ORAL TWICE A DAY x 7 days Acetaminophen 500MG Oral Tablet 03/18/2024 03/18/20 24 ORAL NEEDED EVERY 6 HOURS 2 TABLET 360122 RxNorm TAKE 2 TABLET (OR 3 TABLETS regular strength 325mg) ORAL EVERY 6 HOURS FOR 1-2 DAYS THEN NEEDED FOR Fever/Pain (NEXT DOSES 6AM AND 12 NOON) Ibuprofen 200MG Oral Tablet 03/18/2024 03/18/20 24 ORAL EVERY 6 HOURS 2 TABLET 302566 RxNorm TAKE 2 TABLET ORAL EVERY 6 HOURS FOR 24 HOURS THEN NEEDED. (NEXT DOSES at 4AM AND 10AM) Aspirin 81MG Oral Tablet, Enteric Coated 03/19/2024 Unknown ORAL DAILY 81 MILLIGRAMS 800490 RxNorm TAKE 81 MILLIGRAMS ORAL DAILY Carvedilol 6.25MG Oral Tablet 03/19/2024 Unknown ORAL TWICE A DAY 6.25 MILLIGRAMS 819706 RxNorm TAKE 6.25 MILLIGRAMS ORAL TWICE A DAY Fish Oil [place]-3 1000 MG Oral Capsule, Liquid Filled 03/19/2024 Unknown ORAL DAILY 1000 MG RxNorm TAKE 10 00 MG ORAL DAILY Gabapentin 600MG Oral Tablet 03/19/2024 Unknown ORAL TWICE A DAY 600 MILLIGRAMS 140934 RxNorm TAKE 600 MILLIGRAMS ORAL TWICE A DAY Lisinopril 10MG Oral Tablet 03/19/2024 Unknown ORAL DAILY 10 MILLIGRAMS 524808 RxNorm TAKE 10 MILLIGRAMS ORAL DAILY Multiple [...] Tablet 03/19/2024 Unknown ORAL BEDTIME 0.5 MILLIGRAMS 332426 RxNorm TAKE 0.5 MILLIGRAMS ORAL BEDTIME Ventolin HFA 0.09MG/1Actuat ion Inhalation Suspension 03/19/2024 Unknown INHALA TION NEEDED EVERY 4 HOURS 2 unit(s) 134265 RxNorm 2 EACH INHALATION NEEDED EVERY 4 HOURS Victoza 6MG/1ML Subcutaneous Solution 03/19/2024 Unknown SUBCUT ANEOUS 1.8 MILLILITERS 300241 RxNorm INJECT 1.8 MILLILITERS SUBCUTANEOU S Cefdinir [...] Code Code System URINARY TRACT INFECTION active 302562 05 SNOMED-CT HYPOTENSION active 18823031 SNOMED-C T HYPOKALEMIA active 14165811 SNOMED-C T SEPSIS active 98138515 SNOMED-CT CIRRHOSIS - NON-ALCOHOLIC 01/02/2022 resolved 266 078813 SNOMED-CT HTN 08/20/2019 resolved 54551893 SNOMED-CT HIGH CHOLESTEROL 10/01/2023 resolved 14993701 SN OMED-CT PERSONAL HISTORY OF BLADDER CA 08/20/2019 resolved 119684547 SNOMED-CT NON-INSULIN DEPENDENT DIABETES MELLITUS 08/20/2019 resolved 27324750 SNOMED-CT 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 722094848 SNOMED-CT Allergies and Adverse Reactions Allergy Substance Reaction Severity Start Date Concern Status Co de Code System CODEINE Active 6136 RxNorm Plan of Treatment NM MPI STR/RST 05/15/2023 CT CHEST W/O CONTRAST 05/18/2022 CT CHEST W/O CONTRAST 03/26/2022 MRI BRAIN W/O CONTRAST 01/25/2021 Personal Care Team Section Performer Name Performer Role Active Date Inactive Da te Imaging Narrative Notes [facility] [place], [place] [address] RADIOLOGY NUTRITION TEACHER REPORT Patient Name: NICK MENDIETA MRN: Sex: : Age: [id number] F 1940 83 Account: Accession: Admit: StayType: [id number] 03/17/2024 E Ordered: Order ID: Submitted: Ordering Provider: 03/17/2024 16:03 [id number] NGOZI MOSLEY Completed: Technologist: Resulted: 03/17/2024 16:09 DANNA 03/17/2024 16:28 EXAMINATION: XR CHEST 2V PA AND LATERAL CLINICAL HISTORY: Reason for Chest: Pneumonia Add'l Info: TECHNIQUE: PA and lateral views of the chest COMPARISON: 12/06/2023, 03/19/2023 FINDINGS: Lungs are well expanded. No airspace consolidation or acute lesion. No pleural effusion. Cardiac and mediastinal contours within normal limits and unchanged. No central vascular congestion or pulmonary edema. No acute bone abnormality. Cholecystectomy clips the right upper quadrant.
--- OUTSIDE RECORDS SUMMARY | 2024-03-23 12:33 | XMS_ITS ---
Author Organization Unknown Address [address] [place] [phone] Phone Care Team Providers Care Explosive Operator Name Role Phone KSENIA Gallo Attending Unavailable ERAN Viera Primary Unavailable Social History Type Status Start Date End Date Code Code Syst em Smoking History Never smoker (Never Smoked) 278623836 SNOMED CT Sex Female Medications Medication Start Date End Date Route Frequency Dose Code Code System Medication Instructions Home Meds Atorvastatin Calcium 20MG Oral Tablet 08/20/2019 Unknown ORAL BEDTIME 20 MILLIGRAMS 194487 RxNorm TAKE 20 MILLIGRAMS ORAL BEDTIME Fish Oil 1000MG Oral Capsule, Liquid Filled 08/20/2019 03/18/20 24 ORAL DAILY 3 CAPSULE 684378 RxNorm TAKE 3 CAPSULE ORAL DAILY Gabapentin 800MG Oral Tablet 08/20/2019 03/18/20 24 ORAL TWICE A DAY 1 TABLET 190863 RxNorm TAKE 1 TABLET ORAL TWICE A DAY Lisinopril 20MG Oral Tablet 08/20/2019 03/18/20 24 ORAL DAILY 20 MILLIGRAMS 507814 RxNorm TAKE 20 MILLIGRAMS ORAL DAILY Multiple Vitamin Formula Oral Tablet 08/20/2019 03/18/20 24 ORAL DAILY 1 unit(s) 3569512 RxNorm TAKE 1 EACH ORAL DAILY glipiZIDE 10MG Oral Tablet, Extended Release 08/20/2019 Unknown ORAL DAILY 10 MILLIGRAMS 105176 RxNorm TAKE 10 MILLIGRAMS ORAL DAILY metFORMIN HCl 1000MG Oral Tablet 08/20/2019 Unknown ORAL TWICE A DAY WITH FOOD 1000 MILLIGRAMS 393706 RxNorm TAKE 1000 MILLIGRAMS ORAL TWICE A DAY WITH FOOD Cephalexin 500MG Oral Tablet 03/17/2024 03/19/20 24 ORAL TWICE A DAY 1 TABLET 612462 RxNorm TAKE 1 TABLET ORAL TWICE A DAY x 7 days Acetaminophen 500MG Oral Tablet 03/18/2024 03/18/20 24 ORAL NEEDED EVERY 6 HOURS 2 TABLET 321220 RxNorm TAKE 2 TABLET (OR 3 TABLETS regular strength 325mg) ORAL EVERY 6 HOURS FOR 1-2 DAYS THEN NEEDED FOR Fever/Pain (NEXT DOSES 6AM AND 12 NOON) Ibuprofen 200MG Oral Tablet 03/18/2024 03/18/20 24 ORAL EVERY 6 HOURS 2 TABLET 624249 RxNorm TAKE 2 TABLET ORAL EVERY 6 HOURS FOR 24 HOURS THEN NEEDED. (NEXT DOSES at 4AM AND 10AM) Aspirin 81MG Oral Tablet, Enteric Coated 03/19/2024 Unknown ORAL DAILY 81 MILLIGRAMS 600332 RxNorm TAKE 81 MILLIGRAMS ORAL DAILY Carvedilol 6.25MG Oral Tablet 03/19/2024 Unknown ORAL TWICE A DAY 6.25 MILLIGRAMS 19990607 RxNorm TAKE 6.25 MILLIGRAMS ORAL TWICE A DAY Fish Oil [place]-3 1000 MG Oral Capsule, Liquid Filled 03/19/2024 Unknown ORAL DAILY 1000 MG RxNorm TAKE 10 00 MG ORAL DAILY Gabapentin 600MG Oral Tablet 03/19/2024 Unknown ORAL TWICE A DAY 600 MILLIGRAMS 904037 RxNorm TAKE 600 MILLIGRAMS ORAL TWICE A DAY Lisinopril 10MG Oral Tablet 03/19/2024 Unknown ORAL DAILY 10 MILLIGRAMS 212482 RxNorm TAKE 10 MILLIGRAMS ORAL DAILY Multiple Vitamins Oral Tablet 03/19/2024 Unknown ORAL DAILY 1 unit(s) RxNorm TAKE 1 EACH ORAL DAILY Nitroglycerin 0.4MG Sublingual Tablet 03/19/2024 Unknown SUBLIN GUAL NEEDED 0.4 MILLIGRAMS 444027 RxNorm DISSOLVE 0.4 MILLIGRAMS SUBLINGUAL NEEDED Omeprazole 40MG Oral Capsule, Delayed Release 03/19/2024 Unknown ORAL DAILY 40 MILLIGRAMS 20020517 RxNorm TAKE 40 MILLIGRAMS ORAL DAILY Pramipexole Dihydrochlorid e 0.5MG Oral Tablet 03/19/2024 Unknown ORAL BEDTIME 0.5 MILLIGRAMS 529615 RxNorm TAKE 0.5 MILLIGRAMS ORAL BEDTIME Ventolin HFA 0.09MG/1Actuat ion Inhalation Suspension 03/19/2024 Unknown INHALA TION NEEDED EVERY 4 HOURS 2 unit(s) 036228 RxNorm 2 EACH INHALATION NEEDED EVERY 4 HOURS Victoza 6MG/1ML Subcutaneous Solution 03/19/2024 Unknown SUBCUT ANEOUS 1.8 MILLILITERS 451655 RxNorm INJECT 1.8 MILLILITERS SUBCUTANEOU S Cefdinir [...] Code Code System URINARY TRACT INFECTION active 330623 05 SNOMED-CT HYPOTENSION active 51041703 SNOMED-C T HYPOKALEMIA active 26733712 SNOMED-C T SEPSIS active 07657354 SNOMED-CT CIRRHOSIS - NON-ALCOHOLIC 01/02/2022 resolved 266 774844 SNOMED-CT HTN 08/20/2019 resolved 58938915 SNOMED-CT HIGH CHOLESTEROL 10/01/2023 resolved 20323042 SN OMED-CT PERSONAL HISTORY OF BLADDER CA 08/20/2019 resolved 471639210 SNOMED-CT NON-INSULIN DEPENDENT DIABETES MELLITUS 08/20/2019 resolved 28559885 SNOMED-CT 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 885372182 SNOMED-CT Allergies and Adverse Reactions Allergy Substance Reaction Severity Start Date Concern Status Co de Code System CODEINE Active 2670 RxNorm Plan of Treatment NM MPI STR/RST 05/15/2023 CT CHEST W/O CONTRAST 05/18/2022 CT CHEST W/O CONTRAST 03/26/2022 MRI BRAIN W/O CONTRAST 01/25/2021 Encounters Encounter Diagnosis Start Date Code Code Sys tem Aortic stenosis, non-rheumatic 11/13/2023 [id number] SNOMED-CT Personal Care Team Section Performer Name Performer Role Active Date Inactive Robbin gama
--- OUTSIDE RECORDS SUMMARY | 2024-03-23 12:34 | XMS_ITS | Encounter Summary ---
Author Organization [facility] [place] [address] Care Team Providers Care Desizing Machine Offbearer Name Role Phone Aysha Johnson MD Primary Care Provider [phone] Encounter Details Date Type Department Care Team (Late st Contact Info) Description 01/06/2024 Telephone Cardiology at [address] [phone] Katelynn Fan, RN Social History Tobacco Use Types Packs/Day Years Used Date Smoking Tobacco: Never Smokeless Tobacco: Never Alcohol Use Standard Drinks/Week Comments Yes 0 (1 standard drink = 0.6 oz pur e alcohol) once per year [facility] Inpatient Questions Answer Date Recorded Does Anyone Try to Keep You From Having Contact with Others or Doing Things Outside Your Home? no 12/06/2023 Feels Threatened by Someone no 11/08 Feels Unsafe at Home or Work/School no 12/06/2023 Physical Signs of Abuse Present no 12/06/2023 Sex and Gender Information Value Date Recorded Sex Assigned at Not on file Gender Identity Not on file Sexual Orientation Not on file documented as of this encounter Miscellaneous Notes * Telephone Encounter - Katelynn Fan, RN - 01/13/2024 4:45 PM EDT RTC to patient to state patient should not be taking the isorbide mononitrate for her CP, just the NTG. States she has stopped taking it since we talked last and has only used the NTG a few times since last week. States she seems to be having more acid pain from her stomach, rather than CP. She hasstarted taking gaviscon with her omeprazole. It's helping but she has to take two tablespoons. Nurse recommended patient notify PCP and follow up with their office concerning current symptoms. Patient agreeable with plan to F/U with PCP, verbalizes understanding to only take NTG for CP and has no further questions or concerns at this time. Katelynn Fan RN, BSN [facility], [facility] [phone] * Telephone Encounter - Katelynn Fan RN - 01/06/2024 3:20 PM EDT VM from patient stating she's inquiring if she can take more than two of the isosorbide mononitratea day? She takes one in the morning and one at noon. Asking if she can take one at night or does she have to take NTG. Requesting call back to discuss. RTC to patient to state according to Dr Gibson's OV note, the isosorbide mononitrate or Imdur was to be stopped. As per his note from [facility] 12/26: Chest pain may be secondary to esophageal disease so we are going to refer her for evaluation in the GI department. In the meantime I am stopping the Imdur but continue the other medications Patient stated she didn't know that, but is getting relief from the Imdur. She wakes up with her chest aching in the morning, takes the Imdur and gets relief within 30 min. She'll do a few things and the pain usually returns shortly before her second dose is due at noon. She takes it and again, relief in 30 min. She stated sometimes at night around dinner time she is taking NTG to get relief, she will take one and the pain is gone within 10 min. She usually does not have pain at rest. Stated she is following up with GI and has an endoscopy scheduled for 02/05. She has a follow up appointment with her PCP on . Nurse stated she will forward this message to Dr Gibson for his review and advisement. Nurse will call back when response received. Patient agreeable with plan, verbalizes understanding and has no further questions or concerns at this time. Katelynn Fan RN, BSN Ambulatory Cardiology Clinic, [facility] [phone] documented in this encounter Plan of Treatment Upcoming Encounters Date Type Department Care Team (Late st Contact Info) Description 04/28/2024 11:00 AM EST [place] [address] Molly Cui, [facility] [place] [address] 04/28/2024 2:00 PM EST Office [place] [phone] Molly Cui, [facility] [place] [address] documented as of this encounter Visit Diagnoses Not on filedocumented in this encounter Care Teams Desizing Machine Offbearer Relationship Specialty Start Date End Date Aysha Johnson MD [address] [place] [address] PCP - General Family Medicine 12/12/23 documented as of this encounter
--- OUTSIDE RECORDS SUMMARY | 2024-03-23 12:34 | XMS_ITS | Clinical Summary ---
Author Organization [facility] Address [facility] [place] [address] Care Team Providers Care Sap Bw Consultant Name Role Phone Aysha Johnsno MD Primary Care Provider [phone] Allergies Active Allergy Reactions Criticality Noted Date Comments Dale Inhibitors Other (See Comments) Medium 03/09/2009 cough Atenolol Other (See Comments) 03/09/2009 Codeine 12/13/2023 Was afraid of people Codeine Phosphate Rash,Other (See Comments) Medium Causes anxiety Dulaglutide Nausea And Vomiting Medium 11/03/2023 Erythromycin Base Nausea And Vomiting Medium Hydromorphone (Bulk) Itching 08/31/2011 Facial itiching Latex, Natural Rubber Itching 08/21/2011 Meperidine Hcl Other (See Comments) Medium confusion Ranolazine 12/27/2023 Stomach aches Simvastatin Nausea Only Medium 02/16/2014 Sulfamethoxazole-Trimeth oprim [...] Take 1 tablet by mouth daily. Active gabapentin (NEURONTIN) 600 mg Tablet Take 600 mg by mouth 2 times daily. Active metFORMIN (GLUCOPHAGE) 1,000 mg tablet Take 1,000 mg by mouth 2 times daily (with meals). Active triamcinolone (KENALOG) 0.1 % cream Apply 1 Application topically as needed. Active fenofibrate (TRICOR) 145 mg Tablet Reported on 08/21/2016 02/17/2015 Active nystatin (MYCOSTATIN) 100,000 unit/mL Suspension as needed. 0 05/19/2015 Active diphenhydrAMINE (BENADRYL) 25 mg Capsule Take 25 mg by mouth every 6 hours as needed for Itching. Active fluticasone propionate (FLONASE) 50 mcg/actuation [place], Suspension 1 spray daily. Act keshia pramipexole (MIRAPEX) 0.125 mg Tablet Take by mouth 3 times daily. 07/28/2018 Active Victoza 2-Jl 0.6 mg/0.1 mL (18 mg/3 mL) Pen Injector Inject 1.8 mg as directed. 05/02/2020 Active atorvastatin (Lipitor) 20 mg Tablet Take 20 mg by mouth daily. Active lisinopriL (Zestril) 10 mg tablet Take 1 tablet by mouth once a day for kidney protection 06/06/2009 Active metoprolol succinate XL (Toprol-XL) 25 mg ER 24 hr tablet Take 37.5 mg by mouth Daily @ 0600. Active carvediloL (Coreg) 6.25 mg tabletIndications:P ortal hypertension TAKE 1 TABLET BY MOUTH TWICE DAILY WITH MEALS 180 tablet 1 10/23/2023 Active isosorbide mononitrate CR (Imdur) 30 mg ER 24 hr tablet Take 30 mg by mouth 2 times daily. Active butalbital-aspirin- caffeine (Fiorinal) 50-325-40 mg tablet Take 1 tablet by mouth every 6 hours as needed for Headaches. Active aspirin EC 81 mg EC (DR) tablet Take 1 tablet by mouth daily. Active albuteroL 90 mcg/actuation inhaler (HFA) Inhale 2 puffs into the lungs every 6 hours as needed for Wheezing or Shortness of Breath. Active clobetasoL (Temovate) 0.05 % Cream Apply topically 2 times daily. 10/18/2023 Active clotrimazole (LOTRIMIN) 1 % Cream Apply topically 2 times daily. 11/03/2023 Active Jardiance 25 mg tablet Take 1 tablet by mouth daily. Active SITagliptin phosphate (Januvia) 50 mg tablet Take 1 tablet by mouth daily. 11/08/2023 Active torsemide (Demadex) 10 mg tablet Take 1 tablet by mouth daily. 12/03/2023 Active traZODone (Desyrel) 50 mg tablet Take 50 mg by mouth nightly. Active nitroGLYcerin (Nitrostat) 0.3 mg sublingual tabletIndications:C oronary artery disease, unspecified vessel or lesion type, unspecified whether angina present, unspecified whether [place] or transplanted heart Place 1 tablet under the tongue every 5 minutes as needed for Chest pain. 25 tablet 12 12/13/2023 Active ranolazine ER (Ranexa) 500 mg ER 12 hr tabletIndications:C oronary artery disease, unspecified vessel or lesion type, unspecified whether angina present, unspecified whether [place] or transplanted heart Take 1 tablet by mouth 2 times daily. 60 tablet 12/13/2023 Active Additional Information Patient not taking.Reported on 12/20/2023 omeprazole (PriLOSEC) [address] capsuleIndications: Gastroesophageal reflux disease without esophagitis Take 1 capsule by mouth daily. 90 capsule 1 01/20/2024 01/19/2025 Active Hospital, Clinic, or Other Facility Administered Medication Ordered Dose Route Frequency Start Date End Date Status diatrizoate meglumine (HYPAQUE, CYSTOGRAFIN) urethral solution 300 mLIndications:Urge incontinence 300 mL Urth ONCE PRN 07/22/2012 Active Active Problems Problem Noted Date Diagnosed Date Hepatic cirrhosis 05/19/2020 Overview (05/19/2020): Added automatically from request for surgery [id number] NAFLD (nonalcoholic fatty liver disease) 016 Mixed incontinence 07/27/2012 Bladder cancer 07/08/2012 S/P hysterectomy 07/08/2012 Vaginal lesion 07/08/2012 Encounters Date Type Department Care Team Description 03/17/[address] [facility] in [address] [phone] Zoe Lay, NEWS CORRESPONDENT 01/20/2024 Refill Gastroenterology at [place] [phone] Molly Cui APRN Gastroesophageal reflux disease without esophagitis 01/06/2024 Telephone [place] [address] Katelynn Fan RN 12/27/2023 11:00 AM EDT Office Visit Cardiology at [place] [phone] Yonathan Gibson MD NAFLD (nonalcoholic fatty liver disease) 12/27/2023 Travel 12/26/2023 Telephone [place] [address] Agnieszka Vinson RN 12/23/2023 10:30 AM EDT TH Visit (TeleHealth) Gastroenterology at [place] [phone] Molly Cui APRN JIMENEZ (dyspnea on exertion); Hepatic cirrhosis, unspecified hepatic cirrhosis type, unspecified whether ascites present from Last 3 Months Family History Medical [...] oz pur e alcohol) once per year [facility] Inpatient Questions Answer Date Recorded Does Anyone [...] Sign Reading Time Taken Comments Blood Pressure 112/58 12/27/2023 11:09 AM EDT Pulse 88 12/27/2023 11:09 AM EDT Temperature 36 ??C (96.8 ??F) 12/20/2023 12:56 PM EDT Respiratory Rate 17 12/20/2023 12:56 PM EDT Oxygen Saturation 97% 12/27/2023 11:09 AM EDT Inhaled Oxygen Concentration - - Weight 61.2 kg (135 lb) 12/27/2023 11:09 AM EDT Height 154.9 cm (5' 1) 12/27/2023 11:09 AM EDT Body Mass Index 25.51 12/27/2023 11:09 AM EDT Plan of Treatment Upcoming Encounters Date Type Department Care Team (Late st Contact Info) Description 04/28/2024 11:00 AM EST Appointment [place] [phone] Molly Cui, [facility] [place] [address] 04/28/2024 2:00 PM EST Office Visit [place] [phone] Molly Cui, [facility] [place] [address] Health Maintenance Due Date Last Done Comments CT Colonography 1940 Colonoscopy 1941 Colorectal Cancer Screening 1940 FIT DNA 1941 FIT 1940 Sigmoidoscopy (10 year) with FIT yearly 1940 Sigmoidoscopy 1940 Pneumoccocal Vaccine: 65+ (1 of 2 - PCV) 06/23/1947 Tetanus/Diphtheria/Pertussis Vaccines (1 - Tdap) 1960 Zoster vaccine (1 of 2) 06/23/1991 Advance Directive 1996 Bone Density Scan 2006 RSV Vaccine (1 - 1-dose 75+ series) 2016 Covid-19 Vaccine (5 - 2023-2 5 season) 2023 01/30/2023, 09/19/2022, 03/05/2022, Additional history exists Influenza (Flu) vaccine (1 o f 1 - Influenza standard series) 12/08/2023 PAP Smear Discontinued 07/08/2012 Procedures Procedure Name Priority Date/Time Associated Diagnosis Comments XR CHEST PA AND LATERAL STAT 03/17/2024 4:20 PM EST [employer]IL[employer] SH[employer] CYTOLOGY FINAL REPORT Routine 07/08/2012 8:27 PM EDT from Last 3 Months or Most Recently Relevant to Health Maintenance Results * XR Chest PA & Lateral (Generic) (03/17/2024 4:20 PM EST) PT CLASS E RAD ADMITDTTM [id number] RAD PT RAD INFO [id number]^KEYANA^C HELSEA^L RAD EXAM DESC XCXR2^XR CHEST 2V PA AND LATERAL^RIS RAD WORKSTATION ID [id number] [facility] Anatomical Region Laterality Modality Chest N/A Radiographic Marlee ging Impressions 03/17/2024 4:28 PM EST Stable interval exam, no evidence of pneumonia. Thank you for letting us participate in the care of this patient. ??If you are a health care provider and have any questions regarding this report, please contact the number below. ??For patients who have questions please contact the health rehab care assistant that requested your imaging first. ? Narrative 03/17/2024 4:28 PM EST EXAMINATION: XR CHEST 2V PA ??AND LATERAL CLINICAL HISTORY: ??Reason for Chest: ??Pneumonia ??Add'l Info: TECHNIQUE: PA and lateral views of the chest COMPARISON: 12/06/2023, 03/19/2023 FINDINGS: Lungs are well expanded. No airspace consolidation or acute lesion. No pleural effusion. Cardiac and mediastinal contours within normal limits and unchanged. No central vascular congestion or pulmonary edema. No acute bone abnormality. Cholecystectomy clips the right upper quadrant. Procedure Note Avila Keith MD - 03/17/2024 EXAMINATION: XR CHEST 2V PA AND LATERAL CLINICAL HISTORY: Reason for Chest: Pneumonia Add'l Info: TECHNIQUE: PA and lateral views of the chest COMPARISON: 12/06/2023, 03/19/2023 FINDINGS: Lungs are well expanded. No airspace consolidation or acute lesion. Nopleural effusion. Cardiac and mediastinal contours within normal limits and unchanged. Nocentral vascular congestion or pulmonary edema. No acute bone abnormality. Cholecystectomy clips the right upperquadrant. IMPRESSION Stable interval exam, no evidence of pneumonia. Thank you for letting us participate in the care of this patient. If youare a health care provider and have any questions regarding this report,please contact the number below. For patients who have questions please contactthe health rehab care assistant that requested your imaging first. Zoe Yanes Keyana [facility] IMG DX ORDERABLES * Trim Technician Cytology Final Report (07/08/2012 8:27 PM EDT) Trim Technician Cytology Final Report ? [facility] ? Provider: ?? MOE WATSON, ??Pt. Name: ?? NICK MENDIETA ?LOULOU ? Acc #: ?[id number] ?Pt. ? Col Date: ?? 07/08/2012 ?/Sex: ?1940,(72 years),Female ? Rec Date: ?? 07/08/2012 ?LOC: ?5L ? CYTOPATHOLOGY: ??BOILERMAKER SHIP ? ---Adequacy--- ? Specimen submitted is satisfactory. Vaginal Only. ? ---Cytopathologic Diagnosis--- ? NORMAL ? Negative for Intraepithelial Lesion or Malignancy (NILM). ? 07/09/12 ?? Screened by: ??LMY ??SLA ? 07/10/12 ?? Verified by: ??Alexander CT(ASCP), Stefany Rivera - ? Biostatistician ? ---Clinical Information--- ? HPV Option: ? No HPV Testing ? Preparation: ?Liquid Based Pap ? Specimen Source: ?Vaginal only/LBP/Diagnostic ? LMP: ?Post menopausal, hx bladder cancer, new posterior ? wall bladder lesion ? Hormones?: ?No ? Hysterectomy?: ?Total Hysterectomy ?: ?No ?: ?No ? I.U.D.?: ?No ? Pelvic Radiation: ? No ? Prior BOILERMAKER SHIP Therapy?: ? No ? Hist Abnl Pap/Biopsy?: [...] ??For further ? information please contact the [facility] Laboratory. ? Reference: ??Gunjan AMBRIZ. ??Ballistics Expert Forensic of Pap Smear Results. ??In: ? Rosy BS, [facility], ed. ??The Pap Smear. ??[place]: ??Pino, 2002: ? 71-77. CERNER MILLENNIUM 07/08/2012 8:27 PM EDT Loulou Watson MD PATHOLOGY/C YTOLOGY ORDERABLES JORY THURMANIUM from Last 3 Months or Most Recently Relevant to Health Maintenance Care Teams Sap Bw Consultant Relationship Specialty Start Date End Date Aysha Johnson MD [address] [place] [address] PCP - General Family Medicine 12/12/23
--- OUTSIDE RECORDS SUMMARY | 2024-03-23 12:34 | XMS_ITS | Encounter Summary ---
Author Organization [facility] [place] [address] Care Team Providers Care Wash Barrel Leader Name Role Phone Aysha Johnson MD Primary Care Provider [phone] Encounter Details Date Type Department Care Team (Late st Contact Info) Description 12/26/2023 Telephone Cardiology at [address] [phone] Agnieszka Vinson, RN Social History Tobacco Use Types Packs/Day Years Used Date Smoking Tobacco: Never Smokeless Tobacco: Never Alcohol Use Standard Drinks/Week Comments Yes 0 (1 standard drink = 0.6 oz pur e alcohol) once per year [facility] Inpatient Questions Answer Date Recorded Does Anyone [...] encounter Miscellaneous Notes * Telephone Encounter - Agnieszka Vinson RN - 12/26/2023 8:59 AM EDT Return call to patient who states she wasn't able to tolerate the ranolazine 500 mg bid she startedearlier this month. Patient states it's caused her to feel extremely sick to her stomach and unableto keep any food down. States during the days she has skipped the medication the nausea was better.Patient is scheduled to see Dr. Gibson in clinic tomorrow 12/26 and will discuss further with himat that time. Recommended patient follow up with PCP today to see if any other causes could be ruled out before she sees Dr. Gibson tomorrow. Patient verbalized understanding. Agnieszka Vinson RN [facility] Team Nurse [phone] documented in this encounter Plan of Treatment Upcoming Encounters Date Type Department Care Team (Late st Contact Info) Description 04/28/2024 11:00 AM EST Appointment [place] [address] Molly Cui, [facility] [place] [address] 04/28/2024 2:00 PM EST Office Visit [place] [address] Molly Cui, [facility] [place] [address] documented as of this encounter Visit Diagnoses Not on filedocumented in this encounter Care Teams Wash Barrel Leader Relationship Specialty Start Date End Date Aysha Johnson MD [address] [place] [address] PCP - General Family Medicine 12/12/23 documented as of this encounter
--- OUTSIDE RECORDS SUMMARY | 2024-03-23 12:34 | XMS_ITS | Continuity of Care Document ---
Author Organization [facility], [facility] Address [address] [place] [address] Care Team Providers Care Cooper Apprentice Name Role Phone CRYSTAL MCCORMACK Systems Engineering Manager LANI WALLIS Video Player Mechanic Assessment Encounter Date Assessment Date Assessment LastModified by Organization Details LastModified Time 03/17/2024 03/17/2024 Vaginal Discomfort and Possible Infection - Assessment: Patient reports discomfort in the vaginal area and previous use of a prescribed cream. - Plan: a. Defer evaluation and treatment of vaginal symptoms until the patient's respiratory issues are addressed. b. Reassess and manage vaginal symptoms at a follow-up visit after the patient's acute respiratory issues are resolved. General Weakness and Difficulty Ambulating - Assessment: Patient reports trouble walking and appears weak. - Plan: a. Provide assistance with ambulation (wheelchair) and monitor the patient's mobility. b. Reevaluate the patient's strength and mobility after addressing acute respiratory issues. [email or web address] Not available 03/17/2024 15:27:03 Plan of Treatment Reminders Order Date Submit Date Provider Last Modified By Organization Details Last Modified Time Details Appointments Nurse Visit 2023 11:30A M [place] [facility] Not available Not available Not available hospital follow up 2023 02:00P M RUPAL BARILLAS Not available Not available Not available Follow Up 2024 11:30A M RUPAL BARILLAS Not available Not available Not available Lab None recorded. Referral None recorded. Procedures None recorded. Surgeries None recorded. Imaging None recorded. Medication Orders None recorded. Patient TargetsNo targets recorded. Patient Instructions Encounter Date Encounter Id Patient Instructions Last Modified By Organization Details Last Modified Time 03/17/2024 [id number] Date: SatMar 17 2024 Dear [Patient's Name], Thank you for visiting today and discussing your health concerns. I appreciate your commitment to improving your health. Here's a summary of the palomo points from our conversation: - Immediate visit to the ER: Go directly to [facility] for a thorough evaluation, as your symptoms suggest a possible recurrence of pneumonia. - Chest x-ray: This is recommended to assess your lung condition. - Hydration and Nutrition: Continue to stay hydrated and attempt to eat if possible. - Vaginal Discomfort: Use the prescribed ointment as previously directed, if symptoms persist. - Medications: Follow up with your regular medications as prescribed. I have informed [facility] of your arrival to expedite your care. We will address any additional concerns after your immediate needs are taken care of at the ER. Please feel free to reach out after your ER visit for any further questions or concerns. Wishing you a beltran recovery. Best regards, Rupal Barillas MD Family Medicine [email or web address] Not available 03/17/2024 15:22:54 Reason for Referral None Reported. Results Created Date Observation Date Name Description Value Unit Range Abnormal Flag Note LastModifiedBy Organization Detail LastModifiedTime 03/17/20 24 03/17/2024 xr chest 2V Pa and later al [facility] RADIOL OGY [place] [id number] RADIOL OGY TRANSC RIPTIO N REPORT _ Patien t Name: CRISTEL SEGUNDO MRN: Sex: : Age: [id number] F [id number] Accoun t: Access ion: Admit: StayTy pe: [id number] 2023 Aylin Castellon d: Order ID: Submit nate: David Klein er: 2023 16:03 [id number] Zoey MOSLEY nate: Techno logist : Result ed: 2023 16:09 DANNA 2023 16:28 _ EXAMIN ATION: XR CHEST 2V PA AND LATERA L CLINIC AL HISTOR Y: Reason for Chest: Pneumo shirlene Add'l Info: TECHNI QUE: PA and latera l views of the chest COMPAR GÓMEZ: 024, 2022 FINDIN GS: Lungs are well expand ed. No airspa ce consol idatio n or acute lesion . No pleura l effusi on. Cardia c and medias tinal contou rs within normal limits and unchan ged. No centra l vascul ar conges tion or pulmon mo edema. No acute bone abnorm ality. Cholec ystect denise clips the right upper quadra nt. IMPRES EUGENE: Stable interv al exam, no eviden ce of pneumo shirlene. Thank you for lettin g us partic ipate in the care of this patien t. If you are a health care [facility] er and have any questi ons regard ing this report , please contac t the number below. For patien ts who have questi ons please contac t the health care [facility] that reques nate your imagin g first. Electr onical ly signed by: Kimberly Keith MD Radiol sohan ji ([phone]), at 2023 4:28 PM INTERFACE (Lab) [address] [place] [address], [id number], 03/17/2024 16:35:27 03/17/20 24 03/17/2024 EKG order yony ng [address] [facility] [place] [id number] EKG TRANSC RIPTIO N REPORT _ Accoun t: Access ion: Admit: StayTy pe: [id number] 2023 E/R Observ ation: Order ID: Submit nate: David aly Provid er: 2023 16:34 [id number] KURT KIN AYALA _ [place] [id number] [facility] Test Date: 2023-04 Pat Name: KAYLEE Khan Depart ment: [facility] bermudez ID: [id number] Room: Gender : F Techngwendolyn perri: jr : 1941-0 3-17 Reques nate By: FRANC Yanes Order Number : [id number] Kelby [email or web address] MD: Jung Corona Measur ements Interv als [place] Rate: 109 P: 57 MA: 182 QRS: -22 QRSD: 92 T: 0 QT: 328 QTc: 441 Interp retive Statem ents Sinus tachyc ardia Poor R wave progre ssion, likely due to lead placem ent Compar ed to ECG 2023 09:24: 01 Sinus rhythm no longer presen t Electr onical ly Signed On 2023 19:33: 53 EST by Jung Corona INTERFACE (Lab) [address] [place] [address], [id number], 03/17/2024 19:35:41 Result Notes None recorded. Problems Name Problem SNOMED Code Status Onset Date Resolution Date Notes Provider Name and Address Organization Details Recorded Time Acute lower respirat ory tract infectio n 044200770 Active [address], [place], [address] , [facility] 4 15:25:54 Acute confusio n 385965923 Active [address], [facility] [address] , [facility] 4 15:26:03 Shannon crawford 94648558 Completed 201305/13/2023 Problem Code: I10; Problem Code Type: ICD-10; MD Livan [address], [place], [address] , [facility] 4 13:45:04 Migraine 36012734 Active 2013 Gail rodriguez, [facility] 4 12:45:27 History of disorder of digestiv e system 368102162 Completed 201305/13/2023 Problem Code: Z87.19; Problem Code Type: ICD-10; MD Livan [address], [place], [address] , [facility] 4 13:45:04 Restless legs 62155889 Active 2013 Gail rodriguez, [facility] 4 12:48:18 Disorder of nervous system due to type 2 diabetes mellitus 609215387 Completed 201305/13/2023 04/27/19 20 - Comments only [...] Code Type: ICD-10; MD Livan [address], [place], [address] , [facility] 4 13:45:04 Allergic rhinitis 18246673 Completed 201305/13/2023 Problem Code: J30.9; Problem Code Type: ICD-10; MD Livan RODRIGUEZ Dr, [address] 4 13:45:04 Mixed hyperlip idemia 028153403 Active 2013 Gail Lavern null, [facility] 4 12:45:48 Neuropat hy due to type 2 diabetes mellitus 50076836156 9106 Active 2013 Gail Lavern [facility] 4 12:46:16 Intolera nce to lactose 794338959 Completed 201305/13/2023 Problem Code: E73.9; Problem Code Type: ICD-10; MD Livan RODRIGUEZ Dr, [address] 4 13:45:04 Heart murmur 27377806 Active [address], [address] 4 06:52:52 History of malignan t neoplasm of bladder 853655565 Active 2013, recurren ce 2008, Dr. Boykin, chemo instilla tion, [facility] 4 12:43:10 History of nutritio nal disorder 991432273 Completed 201405/13/[address], [facility] [address] [place] [address] 4 13:45:04 Irritabl e bowel syndrome 62581066 Active 2014 Gail Lavern [facility] 4 12:45:06 Eczema 93638514 Active 2014 [facility] 4 12:38:10 Hernia of abdomina l cavity 44953627 Active 2015 [facility] 4 12:41:15 Cirrhosi s of liver 42124204 Completed 201505/13/2023 09/22/19 20 - Comments only - Nat Bryant M.D. - Has gained some weight, and possibly has ascites, although I have never examined her before. Follow-u p as planned tomorrow for imaging, labs, and [facility]. Problem Code: K74.69; Problem Code Type: ICD-10; MD Livan R[address], [place], [address] , [facility] 4 13:45:04 History of urinary tract infectio n 58426572191 07 Completed 201505/13/2023 08/03/19 16 - Comments [...] Code Type: ICD-10; MD Livan ROD[address] Dr, [place], [address] , [facility] 4 13:45:04 Screenin g for malignan t neoplasm of breast Completed 201505/13/2023 Problem Code: Z12.39; Problem Code Type: ICD-10; MD Livan R[address] Dr, [place], [address] , [facility] 4 13:45:04 Candidia sis of vagina 00734050 Completed 201505/13/2023 Problem Code: B37.3; Problem Code Type: ICD-10; MD Livan RODR[address]UEZ Dr, [facility] [address] [place] [address] 4 13:45:04 Portal hyperten eugene 39742852 Active 2015 no ascites or encephal opathy, EGD 2015 (gastric ulcer) Gail Lavern [facility] 4 12:47:45 Genitour inary symptoms 558665406 Completed 201504/17/2016 Problem Code: R39.89; Problem Code Type: ICD-10; Not Available [facility] 3 04:10:10 Screenin g for malignan t neoplasm of colon Completed 201605/13/2023 Problem Code: Z12.11; Problem Code Type: ICD-10; MD Livan RODRIGUEZ Dr, [facility] [address] [place] [address] 4 13:45:04 Pneumoni a 947011315 Completed 201602/15/2017 02/12/20 17 - Improved - 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 4 12:39:42 Hepatic failure 79704961 Completed 201805/13/2023 Problem Code: K72.90; Problem Code Type: ICD-10; MD Livan RODRIGUEZ Dr, [facility] [address] [place] [address] 4 13:45:04 Acute upper respirat ory infectio n 58675615 Completed 201811/08/2018 Problem Code: J06.9; Problem Code Type: ICD-10; MD Livan RODRIGUEZ Dr, [address] 4 13:45:04 Proteinu vinod 88303371 Completed 201805/13/2023 Problem Code: R80.9; Problem Code Type: ICD-10; MD Livan RODRIGUEZ Dr, [address] 4 13:45:04 Hyperlip idemia 57005940 Active 2018 [facility] 4 12:44:49 Gastroes ophageal reflux disease without esophagi tis 067410451 Active 2019 [facility] 4 12:39:54 Urinary tract infectio us disease 56949261 Completed 201909/29/2019 09/22/19 20 - Comments only [...] N39.0; Problem Code Type: ICD-10; Not Available [facility] 3 04:10:12 Nervous system and sense organ diseases 473416530 Completed 202005/13/2023 RUPAL BARILLAS MD [address], [place], [address] , [facility] 4 13:45:04 Fall on or from stairs or steps Completed 202005/27/2020 Problem Code: W10.9xxA ; Problem Code Type: ICD-10; Not Available [facility] 3 04:10:12 Knee joint effusion 211816388 Completed 202006/06/2020 Problem Code: M25.469; Problem Code Type: ICD-10; Not Available [facility] 3 04:10:13 Low back pain 564854651 Completed 202006/20/2020 Problem Code: M54.5; Problem Code Type: ICD-10; INDIRA YEN [address], [place], [address] , [facility] 4 14:31:55 Dysuria 34732005 Completed 202009/03/2020 Problem Code: R30.0; Problem Code Type: ICD-10; Not Available [facility] 3 04:10:13 Psychoph ysiologi c insomnia 606224161 Active 2020 Insomnia , chronic [facility] 4 12:48:07 Dizzines s and giddines s 618379682 Completed 202010/31/2020 Problem Code: R42; Problem Code Type: ICD-10; Not Available [facility] 3 04:10:14 Atrophic vaginiti s 40143762 Active 2020 [facility] 4 12:37:19 Urinary tract infectio us disease 97888465 Completed 202003/03/2021 Problem Code: N39.0; Problem Code Type: ICD-10; Not Available [facility] 3 04:10:14 Disorder of hematopo ietic structur e 619801587 Completed 202105/13/2023 Problem Code: D75.89; Problem Code Type: ICD-10; MD Livan R[address] Dr, [place], [address] , [facility] 4 13:45:04 Tension- type headache 963916737 Completed 202105/13/2023 Problem Code: G44.209; Problem Code Type: ICD-10; MD Livan RODRIGUEZ Dr, [facility] [address] , [facility] 4 13:45:04 Acute conjunct ivitis of left eye 65704081406 9105 Completed 202112/19/2021 12/13/19 22 - Comments only - Nat Bryant M.D. - Likely bacteria l. Rx sent for e-mycin ointment . Call for reevalua tion if worsenin g, or no better w/in 48 hours. Problem Code: H10.32; Problem Code Type: ICD-10; Not Available [facility] 3 04:10:15 Cerebrov ascular disease 98489755 Active 2021 [facility] 4 12:37:49 Urinary tract infectio us disease 85515257 Completed 202208/28/2022 Problem Code: N39.0; Problem Code Type: ICD-10; Not Available [facility] 3 04:10:15 Pneumoni a 829616412 Completed 202211/08/2022 10/30/19 23 - Improved - Rupal Barillas MD - But with persiste nt evidence of congesti on in right lung. Advised chest x-ray in a couple of weeks to evaluate for any persiste nt abnormal ities requirin g further follow-u p. She has not had imaging yet with this infectio n. Problem Code: J18.9; Problem Code Type: ICD-10; MD Livan R[address] Dr, [place], [address] , [facility] 4 15:21:09 Edema 816569762 Active 2022 Peripher al edema [facility] 4 12:38:42 Castillo' s esophagu s 152752964 Active 2022 Gail Puckett [facility] 4 12:37:33 Candidia sis of skin 42935989 Completed 201810/23/2022 Problem Code: B37.2; Problem Code Type: ICD-10; Not Available [facility] 3 04:10:16 Acute atopic conjunct ivitis 55656055 Completed 201804/21/2019 Problem Code: H10.10; Problem Code Type: ICD-10; Not Available [facility] 3 04:10:16 Constipa tion 41191235 Completed 201301/02/2023 Problem Code: K59.00; Problem Code Type: ICD-10; Not Available [facility] 3 04:10:16 Cough 15232912 Completed 202201/02/2023 Problem Code: R05.8; Problem Code Type: ICD-10; RUPAL BARILLAS MD [address], [place], [address] , [facility] 4 15:27:29 Hyperten sive disorder 41763341 Completed 201301/02/2023 Not Available [facility] 3 04:10:17 Neoplasm of urinary bladder 319747892 Completed 201301/02/2023 Problem Code: D49.4; Problem Code Type: ICD-10; Not Available [facility] 3 04:10:17 Enthesop athy 13926164 Completed 201812/26/2020 Problem Code: M77.9; Problem Code Type: ICD-10; Not Available [facility] 3 04:10:17 Hypercal cemia 91031167 Completed 201401/02/2023 Not Available [facility] 3 04:10:18 Lung field abnormal 213564048 Completed 201607/29/2017 Problem Code: R91.8; Problem Code Type: ICD-10; Not Available [facility] 3 04:10:18 Insomnia 303224539 Completed 201906/06/2021 Problem Code: F51.09; Problem Code Type: ICD-10; Not Available [facility] 3 04:10:18 Disorder of lung 39234030 Completed 201710/23/2022 Problem Code: J98.4; Problem Code Type: ICD-10; Not Available [facility] 3 04:10:18 Type 2 diabetes mellitus without complica tion 037662355 Completed 201301/02/2023 Problem Code: E11.9; Problem Code Type: ICD-10; INDIRA WATSON [facility] [address], [place], [address] [facility] 4 15:17:00 Pain of left shoulder joint 03210364895 370920 Completed 201406/06/2021 Problem Code: M25.512; Problem Code Type: ICD-10; Not Available [facility] 3 04:10:19 Screenin g for osteopor osis Completed 201602/11/2017 Problem Code: Z13.820; Problem Code Type: ICD-10; Not Available [facility] 3 04:10:19 Inflamed seborrhe ic keratosi s 491529704 Completed 201910/23/2022 Problem Code: L82.0; Problem Code Type: ICD-10; Not Available [facility] 3 04:10:20 Disorder of brain 67363924 Completed 202103/05/2022 Problem Code: G93.40; Problem Code Type: ICD-10; Not Available [facility] 3 04:10:20 Other idiopath ic peripher al neuropat hy NOS Completed 201301/02/2023 Not Available [facility] 3 04:10:20 Obesity 892086887 Completed 201301/02/2023 Not Available [facility] 3 04:10:20 Fatigue 69739072 Completed 201810/27/2018 Problem Code: R53.83; Problem Code Type: ICD-10; Not Available [facility] 3 04:10:21 Genitour inary symptoms 727615137 Completed 201904/04/2020 Problem Code: R39.9; Problem Code Type: ICD-10; Not Available [facility] 3 04:10:21 Benign paroxysm al position al vertigo 273747304 Completed 202001/02/2023 Problem Code: H81.10; Problem Code Type: ICD-10; Not Available [facility] 3 04:10:22 Disorder of skin and/or subcutan eous tissue 39455149 Completed 201904/04/2020 Problem Code: L98.9; Problem Code Type: ICD-10; Not Available [facility] 3 04:10:22 Osteophy te of bone 57475318519 9100 Completed 201906/28/2020 Problem Code: M25.776; Problem Code Type: ICD-10; Not Available [facility] 3 04:10:22 Gastric ulcer 279311367 Completed 201501/02/2023 Problem Code: K25.9; Problem Code Type: ICD-10; Not Available [facility] 3 04:10:22 Right side sciatica 93227885174 9101 Completed 201804/21/2019 Problem Code: M54.31; Problem Code Type: ICD-10; Not Available [facility] 3 04:10:23 Candidia sis 59252365 Completed 201308/22/2015 Problem Code: B37.9; Problem Code Type: ICD-10; Not Available [facility] 3 04:10:23 Steatosi s of liver 383632237 Completed 201302/10/2016 Problem Code: K76.0; Problem Code Type: ICD-10; Not Available [facility] 3 04:10:23 Cough 42502117 Completed 201912/26/2020 Problem Code: R05; Problem Code Type: ICD-10; MD Livan RODR[address]UEZ Dr, [facility] [address] , [facility] 4 15:27:29 Xerostom ia 02590462 Completed 202006/06/2021 Problem Code: R68.2; Problem Code Type: ICD-10; Gail rodriguez, [facility] 4 12:49:03 Candidal vulvovag initis 73077814 Completed 201301/02/2023 Problem Code: 112.1; Problem Code Type: ICD-9; Not Available [facility] 3 04:10:25 Intestin al disaccha ridase deficien cy 91265710 Completed 201301/02/2023 Problem Code: 271.3; Problem Code Type: ICD-9; Not Available [facility] 3 04:10:25 Acute bronchit is 89079544 Completed 201912/26/2020 Problem Code: J20.9; Problem Code Type: ICD-10; Not Available [facility] 3 04:10:26 Peripher al nerve disease 873706724 Completed 201301/02/2023 Not Available [facility] 3 04:10:26 Acute upper respirat ory infectio n 06343845 Completed 202205/13/2023 Problem Code: J06.9; Problem Code Type: ICD-10; MD Livan [address], [place], [address] , [facility] 4 13:45:04 Diastoli c heart failure 626630377 Active 2022 echo 03/[address], [facility] [address] , [facility] 3 11:17:46 Chest pain 00010149 Completed 202205/13/2023 Problem Code: R07.89; Problem Code Type: ICD-10; MD Livan RODRIGUEZ Dr, [address] 13:45:03 Aortic stenosis , non-rheu matic 081176569 Active 2022 mild 03/2023 echo MD Livan RODRIGUEZ Dr, [address] 06:52:21 Senile hyperker atosis 816680918 Completed 202205/13/2023 Problem Code: L82.1; Problem Code Type: ICD-10; MD Livan RODRIGUEZ Dr, [address] 13:45:03 Melanocy tic nevus 796906184 Completed 202205/13/2023 Problem Code: D22.9; Problem Code Type: ICD-10; MD Livan RODRIGUEZ Dr, [address] 13:45:04 [facility] 714421408 Completed 202205/13/2023 01/31/20 23 - Comments only - Rupal Barillas MD - neuro exam not c/w CVA; will eval further at next visit. Problem Code: R27.9; Problem Code Type: ICD-10; MD Livan RODRIGUEZ Dr, [address] 13:45:03 Dyspnea 948364483 Completed 202205/13/2023 Problem Code: R06.09; Problem Code Type: ICD-10; MD Livan RODRIGUEZ Dr, [address] 13:45:03 Chronic diarrhea 464676763 Active 2023 [facility], [facility] 12:37:57 Drug-ind uced xerostom ia 378099182 Active [address], [place], [address] , [facility] 13:38:38 Microalb uminuric diabetic nephropa thy 752295632 Active 2023 [facility], [facility] 12:45:11 Dyspnea on exertion 09629377 Active 2023 [facility], [facility] 12:37:57 Angular cheiliti s 866819397 Active 2023 [facility] 12:36:56 Xerostom ia 09242637 Active 2023 [facility] 12:49:03 History of adenomat ous polyp of colon 230733672 Active 2020 [facility] 12:43:44 Sialoade nitis 36010506 Completed 202308/09/[address], [place], [address] , [facility] 16:48:36 Low back pain 206852193 Active 2023 Problem Code: M54.5; Problem Code Type: ICD-10; INDIRA [place] Dr, [place], [address] , [facility] 14:31:55 Chest pain on exertion 58183001 Active [address], [place], [address] , [facility] 4 12:24:41 Always hungry 419436946 Active [address], [facility] [address] , [facility] 4 16:38:32 Altered bowel function 82252227 Active [address], [place] [address] , [facility] 4 16:38:44 Atypical chest pain 022914660 Active 2023 DORIS JONES MA null, [facility] 07:31:04 Acquired thromboc ytopenia 70104416 Active [address], [address] , [facility] 09:56:08 Actinic keratosi s 405545952 Active [address], [facility] [address] , [facility] 13:34:57 Nodule of lung 030268431 Active 2023 probable lipoma by PET. (benign) MD Livan ROD[address]UEZ Dr, [facility] [address] , [facility] 4 06:49:28 Minimal cognitiv e impairme nt 951625214 Active [address], [facility] [address] , [facility] 4 15:05:52 New daily persiste nt headache 63823227965 9105 Active [address], [facility] [address] , [facility] 4 16:29:33 Lichen sclerosu s of vulva 632939444 Active [address], [facility] [address] , [facility] 4 15:22:25 Milia 060592607 Active [address], [facility] [address] [place] [address] 4 15:51:39 Obstruct keshia sleep apnea syndrome 51056842 Active 2023 DORIS JONES MA null, [facility] 4 09:39:29 Atherosc lerosis Active 2023 DORIS JONES MA null, [facility] 4 09:39:44 Cirrhosi s - non-alco holic 499498156 Active 2023 with esoph varices and low PLT but no ascites, jaundice or sx. MD Livan RODRIGUEZ Dr, [facility] [address] , [facility] 4 06:56:02 Vulvitis 57037089 Active [address], [address] 4 13:20:01 Thromboc ytopenic disorder 893600675 Active [address], [facility] [address] , [facility] 4 13:23:28 Decompen sated cirrhosi s of liver 782895548 Active [address], [facility] [address] [place] [address] 4 14:23:47 Type 2 diabetes mellitus without complica tion 258792151 Active 2023 Problem Code: E11.9; Problem Code Type: ICD-10; INDIRA [address], [facility] [address] , [facility] 4 15:17:00 Coronary arterios clerosis 41093380 Active 2023 DORIS JONES MA null, [facility] 4 12:31:32 Hyperpig mentatio n of skin 84425444 Active [address], [facility] [id number] [place] [address] 15:19:42 Pneumoni a 116526877 Active 202310/30/19 23 - Improved - Rupal Barillas MD - But with persiste nt evidence of congesti on in right lung. Advised chest x-ray in a couple of weeks to evaluate for any persiste nt abnormal ities requirin g further follow-u p. She has not had imaging yet with this infectio n. Problem Code: J18.9; Problem Code Type: ICD-10; MD Livan RODRIGUEZ Dr, [facility] [phone] [place] [address] 15:21:09 Cough 87172336 Active 2023 Problem Code: R05.8; Problem Code Type: ICD-10; MD Livan RODRIGUEZ Dr, [facility] [address] [place] [address] 15:27:29 Notes:Some problems listed i n Document: #[id number] could not be added to this patient's chart. Please review this document and add these problems to the patient's chart manually as needed. Problem Notes None recorded. Procedures Surgical History Date Name Laterality Status Provider Name and Address Organization Details Recorded Time 4 Cryosurgery Multiple Actinic Keratoses completed MD Livan RODRIGUEZ Dr, [place], [address], [facility] 03/06/2024 11:24:31 4 Cryosurgery Warts/Skin Tags completed MD Livan RODRIGUEZ Dr, [place], [address], [facility] 10/18/2023 15:47:48 4 Cryosurgery Warts/Skin Tags completed MD Livan RODR[address]UEZ Dr, [place], [address], [facility] 10/07/2023 13:34:27 Imaging Results None recorded. Procedure Notes None recorded. Medical Equipment None Reported. Allergies Allergen ID Allergen Name Allergen Category Reaction Reaction Severity Criticality Documentation Date Start Date Code Code System Note Provider Name and Address Organization Details Recorded Time 15901 erythromy laura medicatio n other moderate Not available 02/15/20232013 4053 RxNorm stoma ch pain [facility] 12:53:11 14876 Bactrim medicatio n itching moderate Not available 08/01/20232013 79932 9 RxNorm itchy skin [facility] 12:51:33 93072 codeine medicatio n itching moderate Not available 08/01/20232013 2670 RxNorm itchy , paran oid [facility] 12:52:07 78591 Demerol medicatio n other moderate Not available 08/01/20232013 13693 1 RxNorm can' t sleep [facility] 12:52:55 34959 simvastat in medicatio n nausea moderate Not available 08/01/20232013 50439 RxNorm (ALLS TATIN S) [facility] 4 12:53:40 24852 Trulicity medicatio n vomiting moderate low 09/25/2023 47786 96 RxNorm MD Livan RODR[address]UEZ Dr, [place], [address], [facility] 4 12:57:22 Medications Name Sig Start Date [...] TAKE 1 TABLET BY MOUTH AT NIGHT 2023 active Not Available Not Available Not Avai lable Neurontin 300 mg capsule 2tab bid may [...] TAKE 1-2 TABLETs BY MOUTH EVERY DAY 01/08 completed Not Available Not Available Not Available azithromy laura 250 mg tablet Take 2 by mouth now, then take 1 by mouth daily x 4 days 02/09 completed Not Available Not Available Not Available nitroglyc albina 0.3 mg sublingua l tablet PLACE ONE TABLET UNDER THE TONGUE EVERY 5 MINUTES FOR UP TO 3 DOSES NEEDED FOR CHEST PAIN. IF CHEST PAIN STILL PERSISTS CONTACT 911 01/08 completed Not Available Not Available Not Available [...] tablet twice a day by oral route. 01/08 completed Not Available Not Available Not Available clonazepa m 0.5 mg tablet Take [...] 1 tablet every day by oral route. 03/19 completed brice ji for hypokale morro Not Available Not Available Not Available Engerix-B (Hepatiti s B) Vaccine 20 mcg/mL intramusc ular syringe Give 1 month after Twinrix 12/28 completed Not Available Not Available Not Available omeprazol e 40 mg capsule,d elayed release Take 1 capsule by mouth once a day active taking twice a day Not Available Not Available Not Available amitripty [...] once a day 12/[address] Wallis, [facility], after August 2022 OV Not Available Not Available Not Available gabapenti n 800 mg tablet Take 1 tablet by mouth three times a day 2019 active Not Available Not Available Not Avai lable OneTouch Ultra Test strips USE 1 STRIP VIA METER THREE TIMES A DAY DIRECTED active Not Available Not Available No t Available benzonata te 100 mg capsule TAKE ONE CAPSULE BY MOUTH THREE TIMES A DAY NEEDED FOR COUGH active Not Available Not Available No t Available doxycycli ne monohydra te 100 mg capsule TAKE ONE CAPSULE BY MOUTH TWICE A DAY FOR 7 DAYS FOR WALKING PNEUMONI A 03/04 completed Not Available Not Available Not Available glipizide ER 2.5 mg tablet, extended release 24 hr Take 1 tab by mouth daily 2018 active Not Available Not Available Not Avai lable cephalexi n 500 mg capsule Take 1 capsule by mouth three times a day active Not Available Not Available No t Available erythromy laura 5 mg/gram (0.5 %) eye ointment Apply 1 a thin layer into left eye four times a day for 7 days 12/19 completed Not Available Not Available Not Available metformin 1,000 mg tablet take 1 tablet twice a day by oral route. active Not Available Not Available No t Available nystatin 100,000 unit/gram topical cream APPLY TOPICALL Y TO THE AFFECTED AREA TWICE DAILY 08/06 completed Not Available Not Available Not Available lisinopri l 10 mg tablet TAKE 1 TABLET BY MOUTH ONCE DAILY FOR KIDNEY PROTECTI ON active Not Available Not Available No t Available pramipexo le 0.125 mg tablet TAKE [...] cefdinir 300 mg capsule Take 1 capsule every 12 hours by oral route as directed . 2023 active brice canales n for UTI and hypokale morro Not Available Not Available Not Available metformin ER 500 mg tablet,ex tended release 24 hr Take 4 tabs by mouth daily 07/16 completed Not Available Not Available Not Available clotrimaz ole 1 % topical cream APPLY ONE APPLICAT ION TOPICALL Y TO AFFECTED AREA TWO TIMES A DAY 01/08 completed Not Available Not Available Not Available loratadin e 10 mg tablet Take [...] Not Available Not Available Not Avai lable ranolazin e ER 500 mg tablet,ex tended release,1 2 hr TAKE ONE TABLET BY MOUTH TWICE A DAY 01/08 completed Not Available Not Available Not Available red yeast rice 600 mg capsule Take 1 capsule by mouth twice a day 10/23 completed Not Available Not Available Not Available Fish Oil 340 mg-1,000 mg capsule 3 capsule once a day 2013 active Not Available Not Available Not Avai lable Januvia 50 mg tablet Take 1 tablet every day by oral route. 03/04 completed Not Available Not Available Not Available Januvia 100 mg tablet Take 1 tab [...] Available Not Available Not Avai lable Victoza 3-Jl 0.6 mg/0.1 mL (18 mg/3 mL) subcutane ous pen injector Inject 0.6mg once daily subcutan eously for 2 weeks. Then increase to 1.2mg once daily for 4 weeks. Then may increase to 1.8mg once daily. 2023 active Not Available Not Available Not [...] Relief 50 mcg/actua tion nasal spray,[employer] [place] 1 spray into both nostrils once a [...] height Body mass index (BMI) Body weight Oxygen saturation Oxygen saturation in Arterial blood by Pulse oximetry Heart rate Body temperature Systolic blood pressure Diastolic blood pressure Provider Name and Address Organization Details Last Updated DateTime 154.94 cm 26 kg/m2 98321.9 5 g 96 % 96 % 84 /min 98.4 [degF] 120 mm[Hg] 64 mm[Hg] SANTOSH BAIG LPN [facility] 13:55:28 Social History Question Answer Notes LastModified by Organizat ion Details LastModified Time Tobacco Smoking Status Never Smoker GIOVANNA ASIF, [facility] 03/18/2023 15:57:23 Would You Say That, In General, Your Health Is Good [email or web address] Information not available 08/09/2023 How Often Does Anyone, Including Family, Physically Hurt You? Never [email or web address] Information not available 08/09/2023 How Often Does Anyone, Including Family, Insult Or Talk Down To You? Rarely Information no t available 08/09/2023 How Often Does Anyone, Including Family, Threaten You With Harm? Never [email or web address] Information not available 08/09/2023 How Often Does Anyone, Including Family, Scream Or Curse At You? Never [email or web address] Information not available 08/09/2023 Within The Past 12 Months, You Worried That Your Food Would Run Out Before You Got Money To Buy More. Never True Information n ot available 08/09/2023 Within The Past 12 Months, The Food You Bought Just Didn't Last And You Didn't Have Money To Get More. Never True [email or web address] Information not available 08/09/2023 How Hard Is It For You To Pay For The Very Basics Like Food, Housing, Medical Care, And Heating? Would You Say It Is: Somewhat Hard [email or web address] Information not available 08/09/2023 In The Past 12 Months, Has Lack Of Reliable Transportation Kept You From Medical Appointments, Meetings, Work Or From Getting Things Needed For Daily Living? No [email or web address] Information not available 08/09/2023 What Is Your Housing Situation Today? I Have Housing. [email or web address] Information not available 08/09/2023 How Often In The Past Year Have You Used Marijuana (including Smoking, Vaping, Dabbing, Or Edibles)? Never [email or web address] Information not available 08/09/2023 How Often In The Past Year Have You Used Prescription Medications That Were Not Prescribed To You? Never [email or web address] Information not available 08/09/2023 How Often In The Past Year Have You Taken Your Own Prescription Medication More Than The Way It Was Prescribed Or For Different Reasons Than Its Intended Purpose? Never [email or web address] Information not available 08/09/2023 How Often In The Past Year Have You Used Other Drugs (for Example, Heroin, Cocaine, Meth, Salvia, Inhalants)? Never [email or web address] Information not available 08/09/2023 Have You Ever Used IV Drugs? No [email or web address] Information not available 08/09/2023 Date Of Most Recent SBINS 08/09/2023 [email or web address] Information not available 08/09/2023 What Was The Date Of Your Most Recent Tobacco Screening? 10/18/2023 [email or web address] Information n ot available 10/18/2023 Has Tobacco Cessation Counseling Been Provided? No [email or web address] Information not available 10/25/2023 Do You Or Have You Ever Used Any Other Forms Of Tobacco Or Nicotine? No [email or web address] Information not available 03/18/2023 Sex: Female Functional Status None recorded. Mental Status None recorded. Family History Relationship Description Onset Age of this Age Resolved Age Notes LastModified by Organization Details LastModified Time Mother Family history of acute medical disorder [email or web address] Not available 2022 03:54:47 Notes:*Problem: Mother: d. 6 7 , cirrhosis, non ETOH Father: d. [place], acute hepatitis Sisters: x1, cirrhosis, non ETOH, [...] 0 0 Immunizations Vaccine Type Date Status Note Provider Nam e and Address Organization Details Recorded Time Influenza, high-dose, trivalent, PF 4 completed [facility] ASIF, [facility] 01/09/2024 16:25:43 COVID-19, mRNA, LNP-S, PF, mayito-sucrose, 30 mcg/0.3 mL 4 completed GIOVANNA ASIF, [facility] 01/09/2024 16:25:43 Td (adult), 2 Lf tetanus toxoid, preservative free, adsorbed 7 completed Not Available [facility] 02/15/2023 05:29:32 Hep A-Hep B 7 completed Not Available [facility] 02/15/2023 05:29:32 Hep A-Hep B 6 completed Not Available [facility] 02/15/2023 05:29:32 Tdap 7 completed Not Available [facility] 02/15/2023 05:29:32 Pneumococcal conjugate PCV 13 7 completed Not Available [facility] 02/15/2023 05:29:32 Td(adult) unspecified formulation 6 completed Not Available [facility] 02/15/2023 05:29:32 Influenza, split virus, trivalent, preservative 6 completed Not Available [facility] 02/15/2023 05:29:32 Influenza, split virus, trivalent, preservative 5 completed Not Available [facility] 02/15/2023 05:29:32 Influenza, split virus, quadrivalent, PF 2 completed Not Available [facility] 02/15/2023 05:29:33 Influenza, split virus, quadrivalent, PF 3 completed Not Available [facility] 02/15/2023 05:29:33 Influenza, split virus, quadrivalent, preservative 7 completed Not Available [facility] 02/15/2023 05:29:33 Influenza, split virus, quadrivalent, preservative 8 completed Not Available [facility] 02/15/2023 05:29:33 Influenza, high-dose, quadrivalent, PF 1 completed Not Available [facility] 02/15/2023 05:29:33 COVID-19, mRNA, LNP-S, PF, 100 mcg/0.5mL dose or 50 mcg/0.25mL dose 1 completed Not Available [facility] 02/15/2023 05:29:33 COVID-19, mRNA, LNP-S, PF, 100 mcg/0.5mL dose or 50 mcg/0.25mL dose 1 completed Not Available [facility] 02/15/2023 05:29:33 COVID-19, mRNA, LNP-S, PF, 100 mcg/0.5mL dose or 50 mcg/0.25mL dose 2 completed Not Available [facility] 02/15/2023 05:29:33 SARS-COV-2 (COVID-19) vaccine, UNSPECIFIED 1 completed Not Available [facility] 02/15/2023 05:29:34 COVID-19, mRNA, LNP-S, bivalent, PF, 30 mcg/0.3 mL dose 3 completed Not Available [facility] 02/15/2023 05:29:34 COVID-19, mRNA, LNP-S, bivalent, PF, 30 mcg/0.3 mL dose 2 completed Not Available [facility] 02/15/2023 05:29:34 pneumococcal polysaccharide PPV23 7 completed Not Available [facility] 02/15/2023 05:29:34 pneumococcal polysaccharide PPV23 5 completed Not Available [facility] 02/15/2023 05:29:34 pneumococcal polysaccharide PPV23 1 completed Not Available [facility] 02/15/2023 05:29:34 Hep B, adult 7 completed Not Available [facility] 02/15/2023 05:29:34 influenza, unspecified formulation 8 completed Not Available [facility] 02/15/2023 05:29:34 influenza, unspecified formulation 4 completed Not Available [facility] 02/15/2023 05:29:34 influenza, unspecified formulation 9 completed Not Available [facility] 02/15/2023 05:29:35 Influenza, high-dose, quadrivalent, PF 3 completed Not Available [facility] 04/19/2023 05:31:38 COVID-19, mRNA, LNP-S, PF, mayito-sucrose, 30 mcg/0.3 mL 3 completed Not Available [facility] 04/19/2023 05:31:38 Past Encounters Encounter ID Performer Location Encounter Start Date Encounter Closed Date Diagnosis/Indication Diagnosis SNOMED-CT Code Diagnosis ICD10 Code [id number] RUPAL BARILLAS MD [address] [address] 03/04/2024 13:41:07 03/04/2024 14:36:13 Neuropathy due to type 2 diabetes mellitus 5892504781 65199 E11.40 Actinic keratosis 731316 007 L57.0 Decompensa nate cirrhosis of liver 621744793 K74.60 Chronic diarrhea 7819038 09 K52.9 Castillo's esophagus 3029 58309 K22.70 Atypical chest pain 1025 84256 R07.89 Psychophys iologic insomnia 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 F51.04 Cough 07909221 R05.9 [id number] RUPAL BARILLAS MD [address] [address] 03/17/2024 13:44:52 03/17/2024 16:08:58 Acute lower respiratory tract infection 873723217 J22 Acute confusion 11698769 0 R41.0 Health Concerns Section Related Observation LastModified by Organization Detai ls LastModified Time None Recorded Concern Status LastModified by Organization Details LastModified Time None Recorded Payers Encounter Date Sequence Insurance Name Policy Number Policy Lucas Covered Member ID Lucas Member ID Guarantor Name 03/17/2024 1 [id number]/A [place]ANTAGE - PPO) [id number] Milka Corbett [id number] Milka Corbett Notes Date Note Type Note Provider Name and Address Organization Details Recorded Time 03/17/2024 text/html CC: Persistent cough, fever-like symptoms, and vaginal discomfort The patient presents not feeling well, experiencing a persistent cough, and feeling cold. She reports that her cough has not stopped since her last illness over a month ago. She has had shaking chills.. The patient also mentions feeling sick to her stomach and having difficulty eating, though she has been drinking water. She confirms that she has been taking her prescribed medications.. The patient has a history of pneumonia and was last treated with antibiotics at the end of January. She feels that her cough never fully resolved and has been feeling worse recently. In addition to her respiratory symptoms, the patient expresses concern about a possible vaginal infection. She describes discomfort in the vaginal area and has been using a previously prescribed cream for relief. However, she cannot recall the name of the cream. RUPAL BARILLAS MD [address], [place], [address], [facility]. 03/17/2024 15:27:17 OBGyn Episode No OBEpisode recorded.
--- OUTSIDE RECORDS SUMMARY | 2024-03-23 12:34 | XMS_ITS | Encounter Summary ---
Author Organization [facility] Address [facility] [place] [address] Care Team Providers Care Tuber Operator Name Role Phone Aysha Johnson MD Primary Care Provider [phone] Reason for Visit * Reason Comments Medication Refill Encounter Details Date Type Department Care Team (Late st Contact Info) Description 01/20/2024 Ref[place] [phone] Molly Cui FINANCIAL REPORTING SPECIALIST [facility] [place] [address] Gastroesophageal reflux disease without esophagitis Social History Tobacco Use Types Packs/Day Years Used Date Smoking Tobacco: Never Smokeless Tobacco: Never Alcohol Use Standard Drinks/Week Comments Yes 0 (1 standard drink = 0.6 oz pur e alcohol) once per year [facility] Inpatient Questions Answer Date Recorded Does Anyone [...] Department Care Team (Late Contact Info) Description 04/28/2024 11:00 AM [place] [phone] Molly Cui FINANCIAL REPORTING SPECIALIST [facility] [place] [address] 04/28/2024 2:00 PM EST Office [place] [address] Molly Cui APRN [facility] [place] [address] documented as of this encounter Visit Diagnoses Diagnosis Gastroesophageal reflux disease without esophagitis Esophageal reflux documented in this encounter Care Teams Tuber Operator Relationship Specialty Start Date End Date Aysha Johnson MD [address] [address] PCP - General Family Medicine 12/12/23 documented as of this encounter
--- OUTSIDE RECORDS SUMMARY | 2024-03-23 12:34 | XMS_ITS ---
Author Organization Unknown ALLERGIES AND ADVERSE REACTIONS No information ASSESSMENT No information CHIEF COMPLAINT No information MEDICATIONS No information OBJECTIVE DATA No information PHYSICAL EXAMINATION No information TREATMENT PLAN Planned Care Start Date Provider Encounter for Check-up [id number] PROBLEMS No information RESULTS No information REVIEW OF SYSTEMS No information SUBJECTIVE DATA No information VITAL SIGNS No information
--- OUTSIDE RECORDS SUMMARY | 2024-03-23 12:34 | XMS_ITS | Encounter Summary ---
Author Organization [facility] [place] [address] Care Team Providers Care Plaster Molder Name Role Phone Aysha Johnson MD Primary Care Provider [phone] Encounter Details Date Type Department Care Team (Late st Contact Info) Description 03/17/2024 Interpretation Only [facility] in [address] [address] Zoe Lay, CHRISTIAN EDUCATION DIRECTOR [address] [place] [id number] Social History Tobacco Use Types Packs/Day Years [...] 04/28/2024 11:00 AM EST [place] [address] Molly Cui, CHRISTIAN EDUCATION DIRECTOR [facility] [place] [address] 04/28/2024 2:00 PM EST Office [place] [address] Molly Cui APRN [facility] [place] [address] documented as of this encounter Procedures Procedure Name Priority Date/Time Associated Diagnosis Comments XR CHEST PA AND LATERAL STAT 03/17/2024 4:20 PM EST documented in this encounter Results * XR Chest PA & Lateral (Generic) (03/17/2024 4:20 PM EST) PT CLASS E RAD ADMITDTTM [id number] RAD PT RAD INFO [id number]^ALIREZA^C HELSEA^L RAD EXAM DESC XCXR2^XR CHEST 2V PA AND LATERAL^RIS [facility] WORKSTATION ID [id number] [facility] Anatomical Region Laterality Modality Chest N/A Radiographic Marlee ging Impressions 03/17/2024 4:28 PM EST Stable interval exam, no evidence of pneumonia. Thank you for letting us participate in the care of this patient. ??If you are a health care provider and have any questions regarding this report, please contact the number below. ??For patients who have questions please contact the health care services manager that requested your imaging first. ? Narrative [...] patients who have questions please contactthe health care services manager that requested your imaging first. Electronically signed by: Avila Keith MD, [facility]([phone]), at 03/17/2024 4:28 PM Zoe L Alireza CHRISTIAN EDUCATION DIRECTOR IMG DX ORDERABLES documented in this encounter Visit Diagnoses Not on filedocumented in this encounter Care Teams Plaster Molder Relationship Specialty Start Date End Date Aysha Johnson MD [address] [place] [address] PCP - General Family Medicine 12/12/23 documented as of this encounter
--- OUTSIDE RECORDS SUMMARY | 2024-03-23 12:34 | XMS_ITS | Encounter Summary ---
Author Organization [facility] Address [facility] [place] [address] Care Team Providers Care Director Enterprise Sales Name Role Phone Aysha Johnson MD Primary Care Provider [phone] Reason for Referral * Consultation (Routine) - Authorized Specialty Diagnoses / Procedures Referred By Jose bermudez Referred To Contact Gastroenterology Diagnoses NAFLD (nonalcoholic fatty liver disease) chest pain dueto esopageal disease.NACL Yonathan Gibson MD [facility] [place] [address] Molly Cui, MACHINE FELLER [address] [facility] [place] [place] [address] Referral ID Status Reason Start Date Expiration Date Visits Requested Visits Authorized [id number] Authorized Consult, Test & Treat 12/27/2023 12/26/2024 1 1 Encounter Details Date Type Department Care Team (Late st Contact Info) Description 12/27/2023 11:00 AM EDT Office Visit Cardiology at [address] [address] Yonathan Gibson MD [facility] [address] NAFLD (nonalcoholic fatty liver disease) Social History Tobacco Use Types Packs/Day Years Used Date Smoking Tobacco: Never Smokeless Tobacco: Never Alcohol Use Standard Drinks/Week Comments Yes 0 (1 standard drink = 0.6 oz pur e alcohol) once per year DH IPV Inpatient Questions Answer Date Recorded Does [...] Pulse 88 12/27/2023 11:09 AM EDT Temperature - - Respiratory Rate - - Oxygen Saturation 97% 12/27/2023 11:09 AM EDT Inhaled Oxygen Concentration - - Weight 61.2 kg (135 lb) 12/27/2023 11:09 AM EDT Height 154.9 cm (5' 1) 12/27/2023 11:09 AM EDT Body Mass Index 25.51 12/27/2023 11:09 AM EDT documented in this encounter Progress Notes * Yonathan Gibson MD - 12/27/2023 11:00 AM EDT Images from the original note were not included. Came in for follow-up with history [facility] [place] [address] CARDIOLOGY OUTPATIENT PROGRESS NOTE PRIMARY CARE PROVIDER: Aysha Johnson MD REFERRING PROVIDER: Aysha Johnson PROBLEM LIST: Patient Active Problem List Diagnosis Hepatic cirrhosis Added automatically from request for surgery [id number] NAFLD (nonalcoholic fatty liver disease) Mixed incontinence Bladder cancer S/P hysterectomy Vaginal lesion MEDICATIONS: Current Outpatient Medications Medication Sig Dispense Refill nitroGLYcerin (Nitrostat) 0.[address] 1 tablet under the tongue every 5 minutes as needed for Chest pain. 25 tablet 12 isosorbide mononitrate CR (Imdur) 30 mg ER 24 hr tablet Take 30 mg by mouth 2 times daily. fpyqcasydn-vznnqfw-tstjlvek (Fiorinal) 50-325-40 mg tablet Take 1 tablet by mouth every 6 hours as needed for Headaches. aspirin EC 81 mg EC (DR) tablet Take 1 tablet by mouth daily. albuteroL 90 mcg/actuation inhaler (HFA) Inhale 2 puffs into the lungs every 6 hours as needed for Wheezing or Shortness of Breath. clobetasoL (Temovate) 0.05 % Cream Apply topically 2 times daily. clotrimazole (LOTRIMIN) 1 % Cream Apply topically 2 times daily. torsemide (Demadex) 10 mg tablet Take 1 tablet by mouth daily. carvediloL (Coreg) 6.25 mg tablet TAKE 1 TABLET BY MOUTH TWICE DAILY WITH MEALS 180 tablet 1 lisinopriL (Zestril) 10 mg tablet Take 1 tablet by mouth once a day for kidney protection omeprazole (PriLOSEC) [address] capsule TAKE 1 CAPSULE BY MOUTH DAILY (Patient taking differently: Take 40 mg by mouth 2 times daily.) 90 capsule 1 atorvastatin (Lipitor) 20 mg Tablet Take 20 mg by mouth daily. Victoza 2-Jl 0.6 mg/0.1 mL (18 mg/3 mL) Pen Injector Inject 1.8 mg as directed. fluticasone propionate (FLONASE) 50 mcg/actuation [place], Suspension 1 spray daily. pramipexole (MIRAPEX) 0.125 mg Tablet Take by mouth 3 times daily. diphenhydrAMINE (BENADRYL) 25 mg Capsule Take 25 mg by mouth every 6 hours as needed for Itching. nystatin (MYCOSTATIN) 100,000 unit/mL Suspension as needed. 0 gabapentin (NEURONTIN) 600 mg Tablet Take 600 [...] tablet Take 1 tablet by mouth daily. docusate sodium (COLACE) 100 mg capsule Take by mouth. ranolazine ER (Ranexa) 500 mg ER 12 hr tablet Take 1 tablet by mouth 2 times daily. (Patient not taking: Reported on 12/20/2023) 60 tablet 0 Jardiance 25 mg tablet Take 1 tablet by mouth daily. SITagliptin phosphate (Januvia) 50 mg tablet Take 1 tablet by mouth daily. traZODone (Desyrel) 50 mg tablet Take 50 mg by mouth nightly. metoprolol succinate XL (Toprol-XL) 25 mg ER 24 hr tablet Take 37.5 mg by mouth Daily @ 0600. fenofibrate (TRICOR) 145 mg Tablet Reported on 08/21/2016 Current Facility-Administered Medications Medication Dose Route Frequency Provider Last Rate Last Admin diatrizoate meglumine (HYPAQUE, CYSTOGRAFIN) urethral solution 300 mL 300 mL Urethral Once PRN Sandra Betlrán MD Subjective: Patient ID: Milka Corbett is a 83 y.o. patient of Aysha Johnson MD. HPI: Came in for a follow-up with her history of anginal-like retrosternal chest pain relieved with nitroglycerin review the results of the myocardial perfusion study. She also has nonalcoholic liver cirrhosis with thrombocytopenia. The myocardial perfusion study was negative for ischemia and showed no prior scars. It showed good left ventricular function. In view of these findings we are going to refer her to the GI clinic for evaluation of esophageal disease in light of the liver abnormalities. Will DC the Imdur at this point. We are going to continue the carvedilol until the GI workup is finished as it may provide some protection in case that there is portal hypertension and esophageal varices. Will recheck in 6 months REVIEW OF SYSTEMS: Unchanged from prior tracings Family History: Family History Problem Relation Age of Onset Uterine Cancer Maternal Grandmother Ovarian Cancer Daughter 51 Colorectal Cancer Neg Hx Bladder Cancer Brother Breast Cancer Neg Hx Pancreatic Cancer Neg Hx Social History: Social History Socioeconomic History Marital status: Spouse name: Not on file Number of children: Not on file Years of education: Not on file Highest education level: Not on file Occupational History Not on file Tobacco Use Smoking status: Never Smokeless tobacco: Never Vaping Use Vaping status: Never Used Substance and Sexual Activity Alcohol use: Yes Comment: once per year Drug use: No Sexual activity: Not Currently Partners: Male Other Topics Concern Not on file Social History Narrative Lives in [place], [place] with her of 10 years. 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 Social Determinants of Health Financial Resource Strain: Not on file Food Insecurity: Not on file Transportation Needs: Not on file Physical Activity: Not on file Intimate Partner Violence: Not At Risk (12/06/2023) DH IPV Inpatient Questions Prevent Contact with Others: no Feels Threatened by Someone: no Feels Unsafe at Home: no Physical Signs of Abuse Present: no Housing Stability: Not on file Objective: PHYSICAL EXAM: There were no vitals taken for this visit., There is no height or weight on file to calculate BMI. General: Pleasant. No distress. Skin: Warm and dry. HEENT: Anicteric sclera. Neck: JVP not elevated. No AJR. No carotid bruits. Chest: Clear to auscultation Heart: No heave. Regularly regular rhythm. Normal S1 and S2. No gallops. No murmurs. Abdomen: Nondistended. Soft. Nontender. Extremities: No edema. HOME THERAPY CLINICIAN: Normal mentation. Psych: Appropriate affect. Labs: Lab Results Component Value Date WBC 6.24 12/20/2023 WBC 4.98 12/06/2023 WBC 5.4 08/08/2023 WBC 4.8 12/05/2022 HGB 12.7 12/20/2023 HGB 12.0 12/06/2023 HGB 12.8 08/08/2023 HGB 12.8 12/05/2022 PLATELET 86 (L) 12/20/2023 PLATELET 78 (L) 12/06/2023 PLATELET 78 (L) 08/08/2023 PLATELET 91 (L) 12/05/2022 NA 139 12/20/2023 NA 137 12/06/2023 NA 144 08/08/2023 NA 142 12/05/2022 NA 141 06/06/2022 K 3.9 12/20/2023 K 4.1 12/06/2023 K 4.1 08/08/2023 K 4.1 12/05/2022 CL 101 12/20/2023 CL 100 12/06/2023 CL 101 08/08/2023 CL 105 12/05/2022 CO2 27 12/20/2023 CO2 24 12/06/2023 CO2 28 08/08/2023 CO2 28 12/05/2022 BUN 23 (H) 12/20/2023 BUN 18 12/06/2023 BUN 19 (H) 08/08/2023 BUN 17 12/05/2022 CREATININE 0.88 12/20/2023 CREATININE 0.58 (L) 12/06/2023 CREATININE 0.72 08/08/2023 CREATININE 0.71 12/05/2022 CHLPL 103 12/06/2023 CHLPL 178 05/11/2016 HDL 50 12/06/2023 HDL 36 05/11/2016 TRIG 232 05/11/2016 LDLCHOL 111 05/11/2016 Assessment and Plan: #1 Chest pain Negative myocardial perfusion study for ischemia.. Chest pain may be secondary to esophageal disease so we are going to refer her for evaluation in the GI department. In the meantime I am stopping the Imdur but continue the other medications #2 Nonalcoholic liver cirrhosis #3 Thrombocytopenia Likely secondary to liver disease Thank you for the opportunity to participate in this patient's cardiovascular care. All questions were answered and I look forward to the next visit. Yonathan Gibson MD documented in this encounter Plan of Treatment Upcoming Encounters Date Type Department Care Team (Late st Contact Info) Description 04/28/2024 11:00 AM EST Appointment [place] [address] Molly Cui, [facility] [place] [address] 04/28/2024 2:00 PM EST Office Visit [place] [phone] Molly Cui [facility] [place] [address] Scheduled Referrals Name Type Priority Associated Diagnoses Order Schedule Referral to Gastroenterology Outpatient Referral Routine NAFLD (nonalcoholic fatty liver disease) Ordered: 12/27/2023 documented as of this encounter Visit Diagnoses Diagnosis NAFLD (nonalcoholic fatty liver disease) Other chronic nonalcoholic liver disease documented in this encounter Care Teams Director Enterprise Sales Relationship Specialty Start Date End Date Aysha Johnson MD [address] [place] [address] PCP - General Family Medicine 12/12/23 documented as of this encounter
--- OUTSIDE RECORDS SUMMARY | 2024-03-23 12:34 | XMS_ITS | Encounter Summary ---
Author Organization [facility] [place] [address] Care Team Providers Care Chauffeur Name Role Phone Aysha Johnson MD Primary Care Provider [phone] Encounter Details Date Type Department Care Team (Latest Contact Info) Description 12/27/2023 Travel Social History Tobacco Use Types Packs/Day [...] 04/28/2024 11:00 AM [place] [address] Molly Cui APRN [facility] [place] [address] 04/28/2024 2:00 PM EST Office [place] [phone] Molly Cui APRN [facility] [place] [address] documented as of this encounter Visit Diagnoses Not on filedocumented in this encounter Care Teams Chauffeur Relationship Specialty Start Date End Date Aysha Johnson MD [address] [place] [address] PCP - General Family Medicine 12/12/23 documented as of this encounter
--- OUTSIDE RECORDS SUMMARY | 2024-03-23 12:35 | XMS_ITS | Encounter Summary ---
[place] [address] Care Team Providers Care Video Game Animator Name Role Phone Salome Mcarthur APRN Primary Care Provider [phone] Reason for Referral * Consultation (Routine) - Closed Specialty Diagnoses / Procedures Referred By Contruth t Referred To Contact Hematology and Oncology Diagnoses Thrombocytopenia Leland Ortega MD [address] [place] [address] [facility] [address] [place] [address] Referral ID Status Reason Start Date Expiration Date V isits Requested Visits Authorized [id number] Closed Consult, Test & Treat 11/21/2023 11/20/2024 1 1 Encounter Details Date Type Department Care Team (Late st Contact Info) Description 11/21/2023 Transcribe Orders [place] [address] Leland Ortega MD [address] [place], [place] [address], [place] [address] Thrombocytopenia Social History Tobacco Use Types Packs/Day [...] 04/28/2024 11:00 AM [place] [address] Molly Cui, [facility] [place] [address] 04/28/2024 2:00 PM EST Office [place] [address] Molly Cui, [facility] [place] [address] Scheduled Referrals Name Type Priority Associated Diagnoses Order Schedule Referral to Hematology and Oncology Outpatient Referral Routine Thrombocytopenia Ordered: 11/21/2023 documented as of this encounter Visit Diagnoses Diagnosis Thrombocytopenia Thrombocytopenia, unspecified documented in this encounter Care Teams Video Game Animator Relationship Specialty Start Date End Date Salome Mcarthur [employer] MACHINE OPERATOR [address] [place] [address] PCP - General Family Medicine 05/30/15 12/11/23 documented as of this encounter
--- OUTSIDE RECORDS SUMMARY | 2024-03-23 12:35 | XMS_ITS | Encounter Summary ---
Author Organization [facility] [address] Care Team Providers Care Hair Designer Name Role Phone Aysha Johnson MD Primary Care Provider [phone] Encounter Details Date Type Department Care Team (Latest Contact Info) Description 12/13/2023 Travel Social History Tobacco Use Types Packs/Day [...] 04/28/2024 11:00 AM EST [place] [address] Molly Cui APRN [facility] [place] [address] 04/28/2024 2:00 PM EST Office [place] [address] Molly Cui APRN [facility] [place] [address] documented as of this encounter Visit Diagnoses Not on filedocumented in this encounter Care Teams Hair Designer Relationship Specialty Start Date End Date Aysha Johnson MD [address] [place] [address] PCP - General Family Medicine 12/12/23 documented as of this encounter
--- OUTSIDE RECORDS SUMMARY | 2024-03-23 12:35 | XMS_ITS | Encounter Summary ---
Author Organization [facility] [place] [address] Care Team Providers Care Photovoltaic Subcontractor Name Role Phone Salome Mcarthur APRN Primary Care Provider [phone] Reason for Visit * Reason Comments Medication Refill Encounter Details Date Type Department Care Team (Late st Contact Info) Description 10/23/2023 Ref[place] [phone] Molly Cui [facility] [address] Portal hypertension Social History Tobacco Use Types [...] 04/28/2024 11:00 AM EST [place] [phone] Molly Cui [facility] [address] 04/28/2024 2:00 PM EST Office [place] [phone] Molly Cui [facility] [address] documented as of this encounter Visit Diagnoses Diagnosis Portal hypertension documented in this encounter Care Teams Photovoltaic Subcontractor Relationship Specialty Start Date End Date Salome Mcarthur APRN [facility] [address] [place] [address] PCP - General Family Medicine 05/30/15 12/11/23 documented as of this encounter
--- OUTSIDE RECORDS SUMMARY | 2024-03-23 12:35 | XMS_ITS | Encounter Summary ---
Author Organization [facility] Address [facility] [place] [address] Care Team Providers Care Offline Editor Name Role Phone Aysha Johnson MD Primary Care Provider [phone] Reason for Visit * Reason Onset Date Comments Medication Refill 12/13/2023 Encounter Details Date Type Department Care Team (Late st Contact Info) Description 12/13/2023 Refill Cardiology at [address] [phone] Yonathan Gibson MD [facility] [place] [address] Medication Refill Social History Tobacco Use Types Packs/Day Years Used Date Smoking Tobacco: Never Smokeless Tobacco: Never Alcohol Use Standard Drinks/Week Comments Yes 0 (1 standard drink = 0.6 oz pur e alcohol) once per year [facility] Inpatient Questions Answer Date Recorded Does Anyone [...] 04/28/2024 11:00 AM EST Appointment [place] [phone] Molly Cui APRN [facility] [place] [address] 04/28/2024 2:00 PM EST Office Visit [place] [address] Molly Cui APRN [facility] [place] [address] documented as of this encounter Visit Diagnoses Diagnosis Coronary artery disease, unspecified vessel or lesion type, unspecified whether angina present, unspecified whether pilot station or transplanted heart documented in this encounter Care Teams Offline Editor Relationship Specialty Start Date End Date Aysha Johnson MD [address] [place] [address] PCP - General Family Medicine 12/12/23 documented as of this encounter
--- OUTSIDE RECORDS SUMMARY | 2024-03-23 12:35 | XMS_ITS | Encounter Summary ---
Author Organization [facility] Address [facility] [place] [address] Care Team Providers Care Make Up Worker Name Role Phone Salome Mcarthur APRN Primary Care Provider [phone] Encounter Details Date Type Department Care Team (Late st Contact Info) Description 12/06/2023 Orders Only Cardiology at [address] [phone] Jac Cheng MD [facility] [place] [address] Chest pain on breathing (Primary Dx) Social History Tobacco Use Types Packs/Day Years Used Date Smoking Tobacco: Never Smokeless Tobacco: Never Alcohol Use Standard Drinks/Week Comments Yes 0 (1 standard drink = 0.6 oz pur e alcohol) once per year [facility] Inpatient Questions Answer Date Recorded Does Anyone [...] 04/28/2024 11:00 AM EST [place] [phone] Molly Cui APRN [facility] [place] [address] 04/28/2024 2:00 PM EST Office [place] [address] Molly Cui APRN [facility] [place] [address] documented as of this encounter Results * Nuclear Pharmacologic Stress Cardiology (12/20/2023 11:37 AM EDT) Anatomical Region Laterality Modality Other Rebeka Orosco MD [facility] documented in this encounter Visit Diagnoses Diagnosis Chest pain on breathing- Primary Painful respiration documented in this encounter Care Teams Make Up Worker Relationship Specialty Start Date End Date Salome Mcarthur APRN [address] [place] [address] PCP - General Family Medicine 05/30/15 12/11/23 documented as of this encounter
--- OUTSIDE RECORDS SUMMARY | 2024-03-23 12:35 | XMS_ITS | Encounter Summary ---
Author Organization [facility] Address [facility] [place] [address] Care Team Providers Care Accounting Teacher Name Role Phone Aysha Johnson MD Primary Care Provider [phone] Encounter Details Date Type Department Care Team (Late st Contact Info) Description 12/11/2023 Telephone Gastroenterology at [facility] [place] [phone] Jacque Gale RN Social History Tobacco Use Types Packs/Day Years Used Date Smoking Tobacco: Never Smokeless Tobacco: Never Alcohol Use Standard Drinks/Week Comments Yes 0 (1 standard drink = 0.6 oz pur e alcohol) once per year [facility] Inpatient Questions Answer Date Recorded Does Anyone [...] Telephone Encounter - Jacque Gale RN - 12/11/2023 4:33 PM EDT Incoming vmm from pt in follow up to ER evaluation last week for x 2 weeks worse leg swelling and increasing abdominal girth and weight gain. Inquiring if she should be seen by hepatology sooner. Reviewed with Molly Cui APRN. Offered pt visit 12/22. documented in this encounter Plan of Treatment Upcoming Encounters Date Type Department Care Team (Late st Contact Info) Description 04/28/2024 11:00 AM EST Appointment [place] [address] Molly Cui, [facility] [place] [address] 04/28/2024 2:00 PM EST Office Visit [place] [phone] Molly Cui, [facility] [place] [address] documented as of this encounter Visit Diagnoses Not on filedocumented in this encounter Care Teams Accounting Teacher Relationship Specialty Start Date End Date Aysha Johnson MD [address] [place] [address] PCP - General Family Medicine 12/12/23 documented as of this encounter
--- OUTSIDE RECORDS SUMMARY | 2024-03-23 12:35 | XMS_ITS | Encounter Summary ---
Author Organization [facility] Address [facility] [place] [address] Care Team Providers Care Tipple Tender Name Role Phone Aysha Johnson MD Primary Care Provider [phone] Encounter Details Date Type Department Care Team (Latest Contact Info) Description 12/20/2023 9:41 AM EDT - 12/20/2023 9:43 AM EDT Hospital Encounter [place] [phone] Rebeka Orosco MD [facility] [place] [address] Chest pain on breathing Discharge Disposition: Home Social History Tobacco Use Types Packs/Day Years Used Date Smoking Tobacco: Never Smokeless Tobacco: Never Alcohol Use Standard Drinks/Week Comments Yes 0 (1 standard drink = 0.6 oz pur e alcohol) once per year [facility] Inpatient Questions Answer Date Recorded Does [...] Sig Dispensed Refills Start Date End Date nitroGLYcerin (Nitrostat) 0.3 mg sublingual tabletIndications:Luis nary artery disease, unspecified vessel or lesion type, unspecified whether angina present, unspecified whether [place] or transplanted heart Place 1 tablet under the tongue every 5 minutes as needed for Chest pain. 25 tablet 12 12/13/2023 ranolazine ER (Ranexa) 500 mg ER 12 hr tabletIndications:Luis nary artery disease, unspecified vessel or lesion type, unspecified whether angina present, unspecified whether [place] or transplanted heart Take 1 tablet by mouth 2 times daily. 60 tablet 12/13/2023 isosorbide mononitrate CR (Imdur) 30 mg ER 24 hr tablet Take 30 mg by mouth 2 times daily. bhycwcxxlq-ijbptze-ulr feine (Fiorinal) 50-325-40 mg tablet Take 1 tablet by mouth every 6 hours as needed for Headaches. aspirin EC 81 mg EC (DR) tablet Take 1 tablet by mouth daily. albuteroL 90 mcg/actuation inhaler (HFA) Inhale 2 puffs into the lungs every 6 hours as needed for Wheezing or Shortness of Breath. clobetasoL (Temovate) 0.05 % Cream Apply topically 2 times daily. 10/18/2023 clotrimazole (LOTRIMIN) 1 % Cream Apply topically 2 times daily. 11/03/2023 Jardiance 25 mg tablet Take 1 tablet by mouth daily. SITagliptin phosphate (Januvia) 50 mg tablet Take 1 tablet by mouth daily. 11/08/2023 torsemide (Demadex) 10 mg tablet Take 1 tablet by mouth daily. 12/03/2023 traZODone (Desyrel) 50 mg tablet Take 50 mg by mouth nightly. carvediloL (Coreg) 6.25 mg tabletIndications:[place] hypertension TAKE 1 TABLET BY MOUTH TWICE DAILY WITH MEALS 180 tablet 1 10/23/2023 lisinopriL (Zestril) 10 mg tablet Take 1 tablet by mouth once a day for kidney protection 06/06/2009 metoprolol succinate XL (Toprol-XL) 25 mg ER 24 hr tablet Take 37.5 mg by mouth Daily @ 0600. atorvastatin (Lipitor) 20 mg Tablet Take 20 mg by mouth daily. Victoza 2-Jl 0.6 mg/0.1 mL (18 mg/3 mL) Pen Injector Inject 1.8 mg as directed. 05/02/2020 fluticasone propionate (FLONASE) 50 mcg/actuation [place], Suspension 1 spray daily. pramipexole (MIRAPEX) 0.125 mg Tablet Take by mouth 3 times daily. 07/28/2018 diphenhydrAMINE (BENADRYL) 25 mg Capsule Take 25 mg by mouth every 6 hours as needed for Itching. fenofibrate (TRICOR) 145 mg Tablet Reported on 08/21/2016 02/17/2015 nystatin (MYCOSTATIN) 100,000 unit/mL Suspension as needed. 0 05/19/2015 gabapentin (NEURONTIN) 600 mg Tablet Take 600 [...] 100 mg capsule Take by mouth. 02/24/2009 amitriptyline (Elavil) 50 mg tablet Take 1 tablet by mouth nightly. 12/23/2023 omeprazole (PriLOSEC) 40 mg capsuleIndications:Gas troesophageal reflux disease without esophagitis TAKE 1 CAPSULE BY MOUTH DAILY 90 capsule 1 04/29/2023 01/20/2024 documented as of this encounter Plan of Treatment Upcoming Encounters Date Type Department Care Team (Late st Contact Info) Description 04/28/2024 11:00 AM EST [place] [phone] Molly Cui APRN [facility] [place] [address] 04/28/2024 2:00 PM EST Office [place] [address] Molly Cui APRN [facility] [place] [address] documented as of this encounter Procedures Procedure Name Priority Date/Time Associated Diagnosis Comments NUCLEAR PHARMACOLOGIC STRESS CARDIOLOGY Routine 12/20/2023 11:37 AM EDT Chest pain on breathing documented in this encounter Results * Nuclear Pharmacologic Stress Cardiology (12/20/2023 11:37 AM EDT) Anatomical Region Laterality Modality Other Rebeka Orosco MD [facility] documented in this encounter Visit Diagnoses Diagnosis Chest pain on breathing Painful respiration documented in this encounter Care Teams Tipple Tender Relationship Specialty Start Date End Date Aysha Johnson MD [address] [place] [address] PCP - General Family Medicine 12/12/23 documented as of this encounter
--- OUTSIDE RECORDS SUMMARY | 2024-03-23 12:35 | XMS_ITS | Encounter Summary ---
Author Organization [facility] [place] [address] Care Team Providers Care Travel Sales Consultant Name Role Phone Salome Mcarthur APRN Primary Care Provider [phone] Reason for Referral * Consultation (Routine) - Closed Specialty Diagnoses / Procedures Referred By Contac t Referred To Contact Cardiology Diagnoses JIMENEZ (dyspnea on exertion) Chest pain, unspecified type Aortic valve stenosis, etiology of cardiac valve disease unspecified Procedures CARDIAC CATHETERIZATION Leland Ortega MD [address] [place] [address] [facility] Cardiology [address] [place] [phone] Referral ID Status Reason Start Date Expiration Date V isits Requested Visits Authorized [id number] Closed Consult, Test & Treat 11/27/2023 11/26/2024 1 1 Encounter Details Date Type Department Care Team (Latest Contact Info) Description 11/27/2023 Transcribe Orders eDH Incoming Referrals [phone] Leland Ortega MD [address] [place] [address] [place], [place] [address] JIMENEZ (dyspnea on exertion); Chest pain, unspecified [...] 04/28/2024 11:00 AM [place] [address] Molly Cui, [facility] [place] [address] 04/28/2024 2:00 PM EST Office [place] [address] Molly Cui, [facility] [place] [address] Scheduled Referrals Name Type Priority Associated Diagnoses [...] unspecified documented in this encounter Care Teams Travel Sales Consultant Relationship Specialty Start Date End Date Salome Mcarthur APRN [address] [place] [address] PCP - General Family Medicine 05/30/15 12/11/23 documented as of this encounter
--- OUTSIDE RECORDS SUMMARY | 2024-03-23 12:35 | XMS_ITS | Encounter Summary ---
[place] [address] Care Team Providers Care Drywall Taper Helper Name Role Phone Salome Mcarthur APRN Primary Care Provider [phone] Reason for Referral * Consultation (Routine) - Closed Specialty Diagnoses / Procedures Referred By Contac t Referred To Contact Hematology and Oncology Diagnoses Thrombocytopenia Leland Ortega MD [address] [place] [address] [facility] [address] [place] [address] Referral ID Status Reason Start Date Expiration Date V isits Requested Visits Authorized [id number] Closed Consult, Test & Treat 12/03/2023 12/02/2024 1 1 Encounter Details Date Type Department Care Team (Late Contact Info) Description 12/03/2023 Transcribe Orders eDH Incoming Referrals [phone] Leland Ortega MD [address] [place], [place] [address] Thrombocytopenia Social History Tobacco Use Types Packs/Day [...] 04/28/2024 11:00 AM EST [place] [address] Molly Cui, [facility] [place] [address] 04/28/2024 2:00 PM EST Office [place] [address] Molly Cui, [facility] [place] [address] Scheduled Referrals Name Type Priority Associated Diagnoses Order Schedule Referral to Hematology and Oncology Outpatient Referral Routine Thrombocytopenia Ordered: 12/03/2023 documented as of this encounter Visit Diagnoses Diagnosis Thrombocytopenia Thrombocytopenia, unspecified documented in this encounter Care Teams Drywall Taper Helper Relationship Specialty Start Date End Date Salome Mcarthur [employer] [address] [place] [address] PCP - General Family Medicine 05/30/15 12/11/23 documented as of this encounter
--- OUTSIDE RECORDS SUMMARY | 2024-03-23 12:35 | XMS_ITS | Encounter Summary ---
Author Organization [facility] [place] [address] Care Team Providers Care Senior Management Consultant Name Role Phone Aysha Johnson MD Primary Care Provider [phone] Encounter Details Date Type Department Care Team (Latest Contact Info) Description 12/20/2023 Travel Social History Tobacco Use Types Packs/Day [...] 04/28/2024 11:00 AM [place] [address] [address] Cui [address]N [facility] [place] [address] 04/28/2024 2:00 PM EST Office [place] [phone] Molly Cui APRN [facility] [place] [address] documented as of this encounter Visit Diagnoses Not on filedocumented in this encounter Care Teams Senior Management Consultant Relationship Specialty Start Date End Date Aysha Johnson MD [address] [place] [address] PCP - General Family Medicine 12/12/23 documented as of this encounter
--- OUTSIDE RECORDS SUMMARY | 2024-03-23 12:35 | XMS_ITS | Encounter Summary ---
Author Organization [facility] [place] [address] Care Team Providers Care Cheese Pancake Roller Name Role Phone Aysha Johnson MD Primary Care Provider [phone] Reason for Visit * Diagnostic Test (Routine) - Closed Specialty Diagnoses / Procedures Referred By Contac t Referred To Contact Radiology Diagnoses Chest pain on breathing Procedures NM Pharmacologic Stress and Rest Myocardial Perfusion NM Exercise Stress and Rest Myocardial Perfusion Jac Cheng MD [facility] [place] [address] [facility] [place] [address] Referral ID Status Reason Start Date Expiration Date V isits Requested Visits Authorized [id number] Closed Specialty Service Requested 12/10/2023 06/08/2025 1 1 Encounter Details Date Type Department Care Team (Latest Contact Info) Description 12/20/2023 9:40 AM EDT Hospital Encounter [place] [address] Rebeka Orosco MD [facility] [address] Discharge Disposition: Home Social History Tobacco Use Types Packs/Day Years Used Date Smoking Tobacco: Never Smokeless Tobacco: Never Alcohol Use Standard Drinks/Week Comments Yes 0 (1 standard drink = 0.6 oz pur e alcohol) once per year [facility] Inpatient Questions Answer Date Recorded Does [...] type, unspecified whether angina present, unspecified whether [place] or transplanted heart Place 1 tablet under the tongue every 5 minutes as needed for Chest pain. 25 tablet 12 12/13/2023 ranolazine ER (Ranexa) 500 mg ER 12 hr tabletIndications:Luis nary artery disease, unspecified vessel or lesion type, unspecified whether angina present, unspecified whether [place] or transplanted heart Take 1 tablet by mouth 2 times daily. 60 tablet 12/13/2023 isosorbide mononitrate CR (Imdur) 30 mg ER 24 hr tablet Take 30 mg by mouth 2 times daily. ddxgxxasqj-bnphmcj-qmy feine (Fiorinal) 50-325-40 mg tablet Take 1 [...] directed. 05/02/2020 fluticasone propionate (FLONASE) 50 mcg/actuation [place], Suspension 1 spray daily. pramipexole (MIRAPEX) 0.125 [...] mouth nightly. 12/23/2023 omeprazole (PriLOSEC) [address] capsuleIndications:Gas troesophageal reflux disease without esophagitis TAKE 1 CAPSULE BY MOUTH DAILY 90 capsule 1 04/29/2023 01/20/2024 documented as of this encounter Plan of Treatment Upcoming Encounters Date Type Department Care Team (Late st Contact Info) Description 04/28/2024 11:00 AM EST Appoint[place] [address] Molly Cui, [facility] [place] [address] 04/28/2024 2:00 PM EST Office [place] [phone] Molly Cui, [facility] [place] [address] documented as of this encounter Procedures Procedure Name Priority Date/Time Associated Diagnosis Comments NM PHARMACOLOGIC STRESS AND REST MYOCARDIAL PERFUSION Routine 12/20/2023 11:27 AM EDT Chest pain on breathing documented in this encounter Results * NM Pharmacologic Stress CT Component (12/20/2023 11:45 AM EDT) [employer] Signature WORKSTATION ID [id number] [facility] Anatomical Region Laterality Modality Nuclear Medicine Impressions 12/20/2023 1:52 PM EDT 1. ??No ischemia or scar. ??Left ventricular function is normal. 2. ??Pulmonary nodules in the medial left lower and lateral right upper lobes are unchanged from prior CT of 10/24/2023. An additional small nodular opacity in the posterior right lower lobe which is new from prior CT. Attention on follow-up recommended. Preliminary report signed by: Franklin Jain at 12/20/2023 1:36 PM I have personally reviewed the image(s) and the resident's interpretation and agree with the findings, Ed Benavides MD at 12/20/2023 1:52 PM Thank you for letting us participate in the care of this patient. ??If you are a health care provider and have any questions regarding this report, please contact the number below. ??For patients who have questions please contact the health patient care coordinator that requested your imaging first. ? Narrative 12/20/2023 1:52 PM EDT EXAMINATION: NM PHARMACOLOGIC STRESS AND REST MYOCARDIAL PERFUSION, NM PHARMACOLOGIC STRESS CT COMPONENT CLINICAL HISTORY: chest pain on breathing R07.1, Chest pain on breathing TECHNIQUE: During rest, 9.8 mCi of technetium-99m sestamibi was administered intravenously. Approximately 20 minutes later, SPECT images of the heart were obtained with reconstruction in the short, vertical long and horizontal long axis. The patient then received regadenoson intravenously at a dose of 0.4 mg. 20 seconds later, 29.7 mCi of technetium-99m sestamibi was administered intravenously. Images of the heart were then again obtained with SPECT reconstruction. A low-dose CT scan was acquired for the purpose of attenuation correction COMPARISON: 10/24/23 PET/CT FINDINGS: No fixed or reversible perfusion defects are present. Functional analysis: Myocardial function: There is normal wall thickening and wall motion. Left ventricular ejection fraction: 62 % (normal greater than than 50%). ANCILLARY CT FINDINGS: Coronary, aortic, aortic annular, and mitral annular calcification 15 mm pulmonary nodule in the medial left lower lobe, unchanged from prior CT of 10/24/2023. Small ill-defined nodular opacities in the lateral right upper lobe, unchanged from prior CT of 10/24/2023. Small nodular opacity in the posterior right lower lobe, new from prior CT. Cirrhotic liver morphology. Splenomegaly. Procedure Note Ed Benavides MD - 12/20/2023 EXAMINATION: NM PHARMACOLOGIC STRESS AND REST MYOCARDIAL PERFUSION, NM PHARMACOLOGIC STRESS CT COMPONENT CLINICAL HISTORY: chest pain on breathing R07.1, Chest pain on breathing TECHNIQUE: During rest, 9.8 mCi of technetium-99m sestamibi wasadministered intravenously. Approximately 20 minutes later, SPECT images of the heartwere obtained with reconstruction in the short, vertical long and horizontallong axis. The patient then received regadenoson intravenously at a dose of 0.4 mg.20 seconds later, 29.7 mCi of technetium-99m sestamibi was administered intravenously. Images of the heart were then again obtained with SPECT reconstruction. A low-dose CT scan was acquired for the purpose of attenuationcorrection COMPARISON: 10/24/23 PET/CT FINDINGS: No fixed or reversible perfusion defects are present. Functional analysis: Myocardial function: There is normal wall thickening and wall motion. Left ventricular ejection fraction: 62 % (normal greater than than 50%). ANCILLARY CT FINDINGS: Coronary, aortic, aortic annular, and mitral annular calcification 15 mm pulmonary nodule in the medial left lower lobe, unchanged from priorCT of 10/24/2023. Small ill-defined nodular opacities in the lateral right upper lobe,unchanged from prior CT of 10/24/2023. Small nodular opacity in the posterior right lower lobe, new from priorCT. Cirrhotic liver morphology. Splenomegaly. IMPRESSION 1. No ischemia or scar. Left ventricular function is normal. 2. Pulmonary nodules in the medial left lower and lateral right upperlobes are unchanged from prior CT of 10/24/2023. An additional small nodular opacityin the posterior right lower lobe which is new from prior CT. Attention onfollow-up recommended. Preliminary report signed by: Franklin Jain at 12/20/2023 1:36 PM I have personally reviewed the image(s) and the resident's interpretationand agree with the findings, Ed Benavides MD at 12/20/2023 1:52 PM Thank you for letting us participate in the care of this patient. If youare a health care provider and have any questions regarding this report,please contact the number below. For patients who have questions please contactthe health patient care coordinator that requested your imaging first. Rebeka Orosco MD [facility] [place] ORDERABLES * NM Pharmacologic Stress and Rest Myocardial Perfusion (12/20/2023 11:27 AM EDT) WORKSTATION ID [id number] [facility] Anatomical Region Laterality Modality Nuclear Medicine Impressions 12/20/2023 1:52 PM EDT 1. ??No ischemia or scar. ??Left ventricular function is normal. 2. ??Pulmonary nodules in the medial left lower and lateral right upper lobes are unchanged from prior CT of 10/24/2023. An additional small nodular opacity in the posterior right lower lobe which is new from prior CT. Attention on follow-up recommended. Preliminary report signed by: Franklin Jain at 12/20/2023 1:36 PM I have personally reviewed the image(s) and the resident's interpretation and agree with the findings, Ed Benavides MD at 12/20/2023 1:52 PM Thank you for letting us participate in the care of this patient. ??If you are a health care provider and have any questions regarding this report, please contact the number below. ??For patients who have questions please contact the health patient care coordinator that requested your imaging first. ? Narrative 12/20/2023 1:52 PM EDT EXAMINATION: NM PHARMACOLOGIC STRESS AND REST MYOCARDIAL PERFUSION, NM PHARMACOLOGIC STRESS CT COMPONENT CLINICAL HISTORY: chest pain on breathing R07.1, Chest pain on breathing TECHNIQUE: During rest, 9.8 mCi of technetium-99m sestamibi was administered intravenously. Approximately 20 minutes later, SPECT images of the heart were obtained with reconstruction in the short, vertical long and horizontal long axis. The patient then received regadenoson intravenously at a dose of 0.4 mg. 20 seconds later, 29.7 mCi of technetium-99m sestamibi was administered intravenously. Images of the heart were then again obtained with SPECT reconstruction. A low-dose CT scan was acquired for the purpose of attenuation correction COMPARISON: 10/24/23 PET/CT FINDINGS: No fixed or reversible perfusion defects are present. Functional analysis: Myocardial function: There is normal wall thickening and wall motion. Left ventricular ejection fraction: 62 % (normal greater than than 50%). ANCILLARY CT FINDINGS: Coronary, aortic, aortic annular, and mitral annular calcification 15 mm pulmonary nodule in the medial left lower lobe, unchanged from prior CT of 10/24/2023. Small ill-defined nodular opacities in the lateral right upper lobe, unchanged from prior CT of 10/24/2023. Small nodular opacity in the posterior right lower lobe, new from prior CT. Cirrhotic liver morphology. Splenomegaly. Procedure Note Ed Benavides MD - 12/20/2023 EXAMINATION: NM PHARMACOLOGIC STRESS AND REST MYOCARDIAL PERFUSION, NM PHARMACOLOGIC STRESS CT COMPONENT CLINICAL HISTORY: chest pain on breathing R07.1, Chest pain on breathing TECHNIQUE: During rest, 9.8 mCi of technetium-99m sestamibi wasadministered intravenously. Approximately 20 minutes later, SPECT images of the heartwere obtained with reconstruction in the short, vertical long and horizontallong axis. The patient then received regadenoson intravenously at a dose of 0.4 mg.20 seconds later, 29.7 mCi of technetium-99m sestamibi was administered intravenously. Images of the heart were then again obtained with SPECT reconstruction. A low-dose CT scan was acquired for the purpose of attenuationcorrection COMPARISON: 10/24/23 PET/CT FINDINGS: No fixed or reversible perfusion defects are present. Functional analysis: Myocardial function: There is normal wall thickening and wall motion. Left ventricular ejection fraction: 62 % (normal greater than than 50%). ANCILLARY CT FINDINGS: Coronary, aortic, aortic annular, and mitral annular calcification 15 mm pulmonary nodule in the medial left lower lobe, unchanged from priorCT of 10/24/2023. Small ill-defined nodular opacities in the lateral right upper lobe,unchanged from prior CT of 10/24/2023. Small nodular opacity in the posterior right lower lobe, new from priorCT. Cirrhotic liver morphology. Splenomegaly. IMPRESSION 1. No ischemia or scar. Left ventricular function is normal. 2. Pulmonary nodules in the medial left lower and lateral right upperlobes are unchanged from prior CT of 10/24/2023. An additional small nodular opacityin the posterior right lower lobe which is new from prior CT. Attention onfollow-up recommended. Preliminary report signed by: Franklin Jain at 12/20/2023 1:36 PM I have personally reviewed the image(s) and the resident's interpretationand agree with the findings, Ed Benavides MD at 12/20/2023 1:52 PM Thank you for letting us participate in the care of this patient. If youare a health care provider and have any questions regarding this report,please contact the number below. For patients who have questions please contactthe health patient care coordinator that requested your imaging first. Rebeka Orosco MD [facility] NM ORDERABLES documented in this encounter Visit Diagnoses Not on filedocumented in this encounter Care Teams Cheese Pancake Roller Relationship Specialty Start Date End Date Aysha Johnson MD [address] [place] [address] PCP - General Family Medicine 12/12/23 documented as of this encounter
--- OUTSIDE RECORDS SUMMARY | 2024-03-23 12:35 | XMS_ITS | Encounter Summary ---
Author Organization [facility] [place] [address] Care Team Providers Care Email Marketing Intern Name Role Phone Salome Mcarthur APRN Primary Care Provider [phone] Encounter Details Date Type Department Care Team (Latest Contact Info) Description 12/06/2023 Travel Social History Tobacco Use Types Packs/Day [...] 04/28/2024 11:00 AM EST [place]oint[place] [address] Molly Cui [facility] [place] [address] 04/28/2024 2:00 PM EST Office [place] [phone] Molly Cui APR[place] [address] documented as of this encounter Visit Diagnoses Not on filedocumented in this encounter Care Teams Email Marketing Intern Relationship Specialty Start Date End Date Salome Mcarthur APRN [address] [place] [address] PCP - General Family Medicine 05/30/15 12/11/23 documented as of this encounter
--- OUTSIDE RECORDS SUMMARY | 2024-03-23 12:35 | XMS_ITS | Encounter Summary ---
Author Organization Formerly [facility] Address [facility] [place] [address] Care Team Providers Care Residential Support Worker Name Role Phone Salome Mcarthur APRN Primary Care Provider [phone] Encounter Details Date Type Department Care Team (Late st Contact Info) Description 11/24/2023 Notes Only H[place]ology [place] [phone] Dariel Ortega MD [facility] [address] [place] [address] Social History Tobacco Use Types Packs/Day Years [...] E-Consult 1. Restatement of the question: Milka Corebtt is a 83 y.o. female with longstanding [...] 04/28/2024 11:00 AM [place] [address] Molly Cui APRN [facility] [place] [address] 04/28/2024 2:00 PM EST Office [place] [address] Molly Cui APRN [facility] [place] [address] documented as of this encounter Visit Diagnoses Not on filedocumented in this encounter Care Teams Residential Support Worker Relationship Specialty Start Date End Date Salome Mcarthur APRN [address] [place] [address] PCP - General Family Medicine 05/30/15 12/11/23 documented as of this encounter
--- OUTSIDE RECORDS SUMMARY | 2024-03-23 12:35 | XMS_ITS | Encounter Summary ---
Author Organization [facility] [place] [address] Care Team Providers Care Electronic Equipment Maint Tech Name Role Phone Aysha Johnson MD Primary Care Provider [phone] Encounter Details Date Type Department Care Team (Latest Contact Info) Description 12/20/2023 12:15 PM EDT - 12/20/2023 11:59 PM EDT Hospital Encounter [place] [phone] Thrombocytopenia Discharge Disposition: Home Social History Tobacco Use Types Packs/Day Years Used Date Smoking Tobacco: Never Smokeless Tobacco: Never Alcohol Use Standard Drinks/Week Comments Yes 0 (1 standard drink = 0.6 oz pur e alcohol) once per year [facility] Inpatient Questions Answer Date Recorded Does [...] type, unspecified whether angina present, unspecified whether circle or transplanted heart Place 1 tablet under the tongue every 5 minutes as needed for Chest pain. 25 tablet 12 12/13/2023 ranolazine ER (Ranexa) 500 mg ER 12 hr tabletIndications:Luis nary artery disease, unspecified vessel or lesion type, unspecified whether angina present, unspecified whether circle or transplanted heart Take 1 tablet by mouth 2 times daily. 60 tablet 12/13/2023 isosorbide mononitrate CR (Imdur) 30 mg ER 24 hr tablet Take 30 mg by mouth 2 times daily. rdhhnkcroc-xgfodcg-tdd feine (Fiorinal) 50-325-40 mg tablet Take 1 [...] directed. 05/02/2020 fluticasone propionate (FLONASE) 50 mcg/actuation [place], Suspension 1 spray daily. pramipexole (MIRAPEX) 0.125 [...] 04/28/2024 11:00 AM [place] [address] Molly Cui [employer] [facility] [place] [address] 04/28/2024 2:00 PM EST Office [place] [phone] Molly Cui, [facility] [place] [address] documented as of this encounter Procedures Procedure Name Priority Date/Time Associated Diagnosis Comments HEPATITIS C ANTIBODY STAT 12/20/2023 12:29 PM EDT Thrombocytopenia LOCO-LLANOS VIRUS ANTIBODIES STAT 12/20/2023 12:29 PM EDT Thrombocytopenia CMV ANTIBODY, IGM STAT 12/20/2023 12: 29 PM EDT Thrombocytopenia HEPATITIS B CORE ANTIBODY, TOTAL STAT 12/20/2023 12:29 PM EDT Thrombocytopenia HIV SCREEN, 4TH GENERATION ([facility]/P/[facility]) STAT 12/20/2023 12:29 PM EDT Thrombocytopenia HEPATITIS B SURFACE ANTIBODY STAT 12/20/2023 12:29 PM EDT Thrombocytopenia HEPATITIS B SURFACE ANTIGEN STAT 12/20/2023 12:29 PM EDT Thrombocytopenia CMV ANTIBODY, IGG STAT 12/20/2023 12: 29 PM EDT Thrombocytopenia CBC (WITH DIFF) STAT 12/20/2023 12:29 PM EDT Thrombocytopenia LACTATE DEHYDROGENASE STAT 12/20/2023 12:29 PM EDT Thrombocytopenia COMPREHENSIVE METABOLIC PANEL STAT 12/20/2023 12:29 PM EDT Thrombocytopenia documented in this encounter Results * HIV Screen, 4th Generation ([facility]/CGP/APD/NLH) (12/20/2023 12:29 PM EDT) [facility] Signature HIV Ab/Ag Screen Negative Negative 12/20/2023 1:38 PM EDT [facility] Comment:Low Risk of HIV Infe ction. Blood VENOUS BLOOD SPECIMEN / Unknown Venipuncture / Unknown 12/20/2023 12:29 PM EDT 12/20/2023 12:29 PM EDT Narrative [facility] - 12/20/2023 1:38 PM EDT This 4th Generation HIV test screens for the presence of the HIV-1 p24 antigen as well as antibodies reactive against HIV-1 and HIV-2. A negative screen does not rule out an acute HIV infection. If acute HIV infection is suspected ??testing should be repeated in 2 - 3 weeks or HIV nucleic acid testing performed. Evin Little MD CHEMISTRY ORDERABLE S [facility] [place] [address] * Hepatitis C Antibody (12/20/2023 12:29 PM EDT) Pathologist [facility] Hepatitis C Antibody Negative Negative 12/20/2023 1:38 PM EDT [facility] Blood VENOUS BLOOD SPECIMEN / Unknown Venipuncture / Unknown 12/20/2023 12:29 PM EDT 12/20/2023 12:29 PM EDT Evin Little MD CHEMISTRY ORDERABLE S Performing Organization Address City/[facility]/ZIP Co de Phone Number [facility] [place] [address] * Hepatitis B Surface Antigen (12/20/2023 12:29 PM EDT) [facility] Hepatitis B Surface Antigen Negative Negative 12/20/2023 1:38 PM EDT [facility] Blood VENOUS BLOOD SPECIMEN / Unknown Venipuncture / Unknown 12/20/2023 12:29 PM EDT 12/20/2023 12:29 PM EDT Evin Little MD CHEMISTRY ORDERABLE S Performing Organization Address City/[facility]/ZIP Co de Phone Number [facility] [place] [address] * (ABNORMAL) Loco-Llanos Virus Antibodies (12/20/2023 12:29 PM EDT) [facility] EBNA Antibodies Positive(A) Negative 12/24/2023 11:49 AM EDT [facility] EBV (VCA) IgG Ab Positive(A) Negative 12/24/2023 11:49 AM EDT [facility] EBV (VCA) IgM Ab Negative Negative 12/24/2023 11:49 AM EDT [facility] EBV Interp Past EBV infection. 12/24/2023 11:49 AM EDT [facility] Blood VENOUS BLOOD SPECIMEN / Unknown Venipuncture / Unknown 12/20/2023 12:29 PM EDT 12/20/2023 12:29 PM EDT [facility] - 12/24/2023 11:49 AM EDT In most populations at least 90% of the adult population will have been infected with EBV some time in the past and therefore will be positive for anti-VCA/IgG and anti-EBNA. Antibodies to EBNA develop 6-8 weeks after primary infection and remain present for life. Presence of VCA/IgM antibodies indicates recent primary infection with EBV. Evin Little MD IMMUNOLOGY ORDERABL ES [facility] [place] [address] * CMV Antibody, IgM (12/20/2023 12:29 PM EDT) CMV IgM Negative Negative 12/24/2023 11:57 AM EDT [facility] Blood VENOUS BLOOD SPECIMEN / Unknown Venipuncture / Unknown 12/20/2023 12:29 PM EDT 12/20/2023 12:29 PM EDT Evin Little MD IMMUNOLOGY ORDERABL ES [facility] [place] [address] * CMV Antibody, IgG (12/20/2023 12:29 PM EDT) CMV IgG Negative Negative 12/24/2023 11:48 AM EDT [facility] Blood VENOUS BLOOD SPECIMEN / Unknown Venipuncture / Unknown 12/20/2023 12:29 PM EDT 12/20/2023 12:29 PM EDT Evin Little MD IMMUNOLOGY ORDERABL ES [facility] [place] [address] * Hepatitis B Core Antibody, Total (12/20/2023 12:29 PM EDT) Hepatitis B Core Antibody Negative Negative 12/20/2023 1:38 PM EDT [facility] Blood VENOUS BLOOD SPECIMEN / Unknown Venipuncture / Unknown 12/20/2023 12:29 PM EDT 12/20/2023 12:29 PM EDT Evin Little MD CHEMISTRY ORDERABLE S Performing Organization Address [facility]/ZIP Co de Phone Number [facility] [place] [address] * Hepatitis B Surface Antibody (12/20/2023 12:29 PM EDT) Hepatitis B Surface Antibody, Quantitative <3.5 IU/L 12/20/2023 6:11 PM EDT [facility] Comment: Unvaccinated: < 8.5 IU/L Vaccinated: >= 11.5 IU/L Hepatitis B Surface Antibody Negative 12/20/2023 6:11 PM EDT [facility] Comment: Patient is presumed to be not vaccinated or immune to HBV infection. Expected Results: Vaccinated: Positive Unvaccinated: Negative Blood VENOUS BLOOD SPECIMEN / Unknown Venipuncture / Unknown 12/20/2023 12:29 PM EDT 12/20/2023 12:29 PM EDT Evin Little MD CHEMISTRY ORDERABLE S Performing Organization Address City/[facility]/ZIP Co de Phone Number [facility] [place] [address] * Lactate Dehydrogenase (12/20/2023 12:29 PM EDT) Lactate Dehydrogenase 131 110 - 220 unit/L 12/20/2023 1:08 PM EDT [facility] Blood VENOUS BLOOD SPECIMEN / Unknown Venipuncture / Unknown 12/20/2023 12:29 PM EDT 12/20/2023 12:29 PM EDT Evin Little MD CHEMISTRY ORDERABLE S [facility] [place] [address] * (ABNORMAL) Comprehensive metabolic panel (12/20/2023 12:29 PM EDT) Pathologist [facility] Glucose 116 65 - 199 mg/dL 12/20/2023 1:08 PM EDT [facility] Comment:Glucose Concentratio n >=200 mg/dL plus symptoms is consistent with Diabetes Mellitus. Blood Urea Nitrogen 23(H) 8 - 18 mg/dL 12/20/2023 1:08 PM EDT [facility] Creatinine 0.88 0.70 - 1.20 mg/dL 12/20/2023 1:08 PM EDT [facility] Sodium 139 135 - 145 mMol/L 12/20/2023 1:08 PM EDT [facility] Potassium 3.9 3.5 - 5.0 mMol/L 12/20/2023 1:08 PM EDT [facility] Chloride 101 98 - 107 mMol/L 12/20/2023 1:08 PM EDT [facility] Carbon Dioxide 27 22 - 31 mMol/L 12/20/2023 1:08 PM EDT [facility] Anion Gap 11 5 - 15 mMol/L 12/20/2023 1:08 PM EDT [facility] Calcium 9.7 8.5 - 10.5 mg/dL 12/20/2023 1:08 PM EDT [facility] Protein, Total 7.0 6.1 - 8.0 g/dL 12/20/2023 1:08 PM EDT [facility] Albumin 4.3 3.2 - 5.2 g/dL 12/20/2023 1:08 PM EDT [facility] Aspartate Aminotransferase 25 <=30 unit/L 12/20/2023 1:08 PM EDT [facility] Alanine Aminotransferase 23 0 - 30 unit/L 12/20/2023 1:08 PM EDT [facility] Alkaline Phosphatase 96 35 - 105 unit/L 12/20/2023 1:08 PM EDT [facility] Bilirubin, Total 0.7 <=1.3 mg/dL 12/20/2023 1:08 PM EDT [facility] Est Glomerular Filtration Rate - Female 66 mL/min/1. 73 m?? 12/20/2023 1:08 PM EDT [facility] Comment: This patient's estimated GFR [...] urine creatinine clearance. Assignment of CKD stage 1 - 5 for patients with an eGFR near the transition point between stages may be based on clinical assessment of muscle mass and symptoms in addition to eGFR. Link: eGFR Calculator [employer] Fasting Status No 12/20/2023 1:08 PM EDT [facility] Blood VENOUS BLOOD SPECIMEN / Unknown Venipuncture / Unknown 12/20/2023 12:29 PM EDT 12/20/2023 12:29 PM EDT Evin Little MD CHEMISTRY ORDERABLE S [facility] [place] [address] * (ABNORMAL) CBC (with Diff) (12/20/2023 12:29 PM EDT) White Blood Cell 6.24 4.00 - 9.50 x10(3)/[facility] 12/20/2023 12:51 PM [facility] Red Blood Cell 4.24 4.00 - 5.21 x10(6)/mcL 12/20/2023 12:51 PM [facility] Hemoglobin 12.7 11.7 - 15.5 g/dL 12/20/2023 12:51 PM [facility] Hematocrit 38.9 35.7 - 45.8 % 12/20/2023 12:51 PM [facility] Mean Cell Volume 91.7 82.6 - 94.4 fL 12/20/2023 12:51 PM [facility] Mean Cell Hemoglobin 30.0 27.1 - 32.0 pg 12/20/2023 12:51 PM [facility] Mean Cell Hemoglobin Concentration 32.6 31.7 - 35.0 g/dL 12/20/2023 12:51 PM [facility] Platelet 86(L) 145 - 357 x10(3)/[facility] 12/20/2023 12:51 PM [facility] Mean Platelet Volume 11.7 7.6 - 12.9 fL 12/20/2023 12:51 PM [facility] RDW Standard Deviation 45.6 37.0 - 46.0 fL 12/20/2023 12:51 PM [facility] RDW coefficient of variation 13.5 11.5 - 14.1 % 12/20/2023 12:51 PM [facility] NRBC% auto 0.0 % 12/20/2023 12:51 PM [facility] NRBC Absolute 0.00 0.00 - 0.00 x10(3)/mcL 12/20/2023 12:51 PM [facility] Neutrophil % 64.6 % 12/20/2023 12:51 PM [facility] Neutrophil Absolute (ANC) - Automated 4.03 1.70 - 6.10 x10(3)/[facility] 12/20/2023 12:51 PM EDT [facility] Lymph % 22.4 % 12/20/2023 12:51 PM EDT [facility] Lymph Absolute 1.40 0.90 - 3.20 x10(3)/mcL 12/20/2023 12:51 PM EDT [facility] Monocyte % 11.9 % 12/20/2023 12:51 PM EDT [facility] Monocyte Absolute 0.74 0.30 - 0.90 x10(3)/[facility] 12/20/2023 12:51 PM EDT [facility] Eos % 0.6 % 12/20/2023 12:51 PM EDT [facility] Eos Absolute 0.04 0.00 - 0.40 x10(3)/[facility] 12/20/2023 12:51 PM EDT [facility] Basophil % 0.2 % 12/20/2023 12:51 PM EDT [facility] Baso Absolute 0.01 0.00 - 0.10 x10(3)/[facility] 12/20/2023 12:51 PM EDT [facility] Immature Gran % 0.3 % 12:51 PM EDT [facility] Immature Gran Absolute 0.02 0.00 - 0.04 x10(3)/[facility] 12/20/2023 12:51 PM EDT [facility] Blood VENOUS BLOOD SPECIMEN / Unknown Venipuncture / Unknown 12/20/2023 12:29 PM EDT 12/20/2023 12:29 PM EDT Evin Little MD HEMATOLOGY ORDERABL ES [facility] [place] [address] documented in this encounter Visit Diagnoses Diagnosis Thrombocytopenia Thrombocytopenia, unspecified documented in this encounter Care Teams Electronic Equipment Maint Tech Relationship Specialty Start Date End Date Aysha Johnson MD [address] [place] [id number] PCP - General Family Medicine 12/12/23 documented as of this encounter
--- OUTSIDE RECORDS SUMMARY | 2024-03-23 12:35 | XMS_ITS | Encounter Summary ---
Author Organization [facility] [place] [address] Care Team Providers Care Deicer Inspector Electric Name Role Phone Aysha Johnson MD Primary Care Provider [phone] Reason for Visit * Diagnostic Test (Routine) - Closed Specialty Diagnoses / Procedures Referred By Contac t Referred To Contact Radiology Diagnoses Chest pain on breathing Procedures NM Pharmacologic Stress and Rest Myocardial Perfusion NM Exercise Stress and Rest Myocardial Perfusion Jac Cheng MD [facility] [place] [address] [facility] [place] [address] Referral ID Status Reason Start Date Expiration Date V isits Requested Visits Authorized [id number] Closed Specialty Service Requested 12/10/2023 06/08/2025 1 1 Encounter Details Date Type Department Care Team (Latest Contact Info) Description 12/20/2023 9:41 AM EDT - 12/20/2023 9:43 AM EDT Hospital Encounter [place] [address] Rebeka Orosco MD [facility] [place] [address] Discharge Disposition: Home Social History Tobacco Use Types Packs/Day Years Used Date Smoking Tobacco: Never Smokeless Tobacco: Never Alcohol Use Standard Drinks/Week Comments Yes 0 (1 standard drink = 0.6 oz pur e alcohol) once per year [facility] Inpatient Questions Answer Date Recorded Does Anyone [...] type, unspecified whether angina present, unspecified whether [place] or transplanted heart Place 1 tablet under the tongue every 5 minutes as needed for Chest pain. 25 tablet 12 12/13/2023 ranolazine ER (Ranexa) 500 mg ER 12 hr tabletIndications:Luis nary artery disease, unspecified vessel or lesion type, unspecified whether angina present, unspecified whether [place] or transplanted heart Take 1 tablet by mouth 2 times daily. 60 tablet 12/13/2023 isosorbide mononitrate CR (Imdur) 30 mg ER 24 hr tablet Take 30 mg by mouth 2 times daily. tylqpnfngb-eazvbiw-rxd feine (Fiorinal) 50-325-40 mg tablet Take 1 [...] by mouth nightly. carvediloL (Coreg) 6.25 mg tabletIndications:Buffy blanco hypertension TAKE 1 TABLET BY MOUTH TWICE [...] directed. 05/02/2020 fluticasone propionate (FLONASE) 50 mcg/actuation [place], Suspension 1 spray daily. pramipexole (MIRAPEX) 0.125 [...] 04/28/2024 11:00 AM [place] [address] Molly Cui, [facility] [place] [address] 04/28/2024 2:00 PM EST Office [place] [phone] Molly Cui, [facility] [place] [address] documented as of this encounter Procedures Procedure Name Priority Date/Time Associated Diagnosis Comments NM PHARMACOLOGIC STRESS AND REST MYOCARDIAL PERFUSION Routine 12/20/2023 11:27 AM EDT Chest pain on breathing documented in this encounter Results * NM Pharmacologic Stress CT Component (12/20/2023 11:45 AM EDT) WORKSTATION ID [id number] [facility] Anatomical Region Laterality Modality Nuclear Medicine [...] who have questions please contact the health eye care professional that requested your imaging first. ? Electronically signed by: Ed Benavides MD, [facility] ([phone]), at 12/20/2023 1:52 PM Narrative 12/20/2023 1:52 PM EDT EXAMINATION: NM [...] patients who have questions please contactthe health eye care professional that requested your imaging first. Electronically signed by: Ed Benavides MD, [facility]([phone]), at 12/20/2023 1:52 PM Rebeka Orosco MD IM NM ORDERABLES * NM Pharmacologic Stress and Rest Myocardial Perfusion (12/20/2023 11:27 AM EDT) WORKSTATION ID [id number] [facility] Anatomical Region Laterality Modality Nuclear Medicine [...] who have questions please contact the health eye care professional that requested your imaging first. ? Electronically signed by: Ed Benavides MD, [facility] ([phone]), at 12/20/2023 1:52 PM Narrative 12/20/2023 1:52 PM EDT EXAMINATION: NM [...] patients who have questions please contactthe health eye care professional that requested your imaging first. Electronically signed by: Ed Benavides MD, [facility]([phone]), at 12/20/2023 1:52 PM Rebeka Orosco MD IMG NM ORDERABLES documented in this encounter Visit Diagnoses Not on filedocumented in this encounter Care Teams Deicer Inspector Electric Relationship Specialty Start Date End Date Aysha Johnson MD [address] [place] [address] PCP - General Family Medicine 12/12/23 documented as of this encounter
--- OUTSIDE RECORDS SUMMARY | 2024-03-23 12:35 | XMS_ITS | Encounter Summary ---
[place] [address] Care Team Providers Care Precinct I Police Sergeant Name Role Phone Salome Mcarthur APRN Primary Care Provider [phone] Reason for Referral * Diagnostic Test (Routine) - Closed Specialty Diagnoses / Procedures Referred By Contac t Referred To Contact Radiology Diagnoses Lung nodule Procedures NM PET CT Skull Base to Mid-thigh Aysha Johnson MD [address] [place] [address] [place] [address] Referral ID Status Reason Start Date Expiration Date V isits Requested Visits Authorized [id number] Closed Specialty Service Requested 10/08/2023 04/09/2025 1 1 Reason for Visit * Diagnostic Test (Routine) - Closed Specialty Diagnoses / Procedures Referred By Contac t Referred To Contact Radiology Diagnoses Lung nodule Procedures NM PET CT Skull Base to Mid-thigh Aysha Johnson MD [address] [place] [address] [place] [address] Referral ID Status Reason Start Date Expiration Date V isits Requested Visits Authorized [id number] Closed Specialty Service Requested 10/08/2023 04/09/2025 1 1 Encounter Details Date Type Department Care Team (Latest Contact Info) Description 10/24/2023 11:12 AM EDT - 10/24/2023 11:59 PM EDT Hospital Encounter [place] [address] Aysha Johnson MD [address] [place] [address] Lung nodule Discharge Disposition: Home Social History [...] Sig Dispensed Refills Start Date End Date clobetasoL (Temovate) 0.05 % Cream Apply topically 2 times daily. 10/18/2023 carvediloL (Coreg) 6.25 mg tabletIndications:[place] hypertension [...] directed. 05/02/2020 fluticasone propionate (FLONASE) 50 mcg/actuation [place], Suspension 1 spray daily. pramipexole (MIRAPEX) 0.125 [...] by mouth. 02/24/2009 omeprazole (PriLOSEC) [address] capsuleIndications:Gas troesophageal reflux disease without esophagitis TAKE 1 CAPSULE BY MOUTH DAILY 90 capsule 1 04/29/2023 01/20/2024 clonazePAM (KLONOPIN) 0.5 mg Tablet nightly. 02/21/2015 12/20/2023 amitriptyline (ELAVIL) 50 mg tablet Take 25 mg by mouth nightly. 12/06/2023 documented as of this encounter Plan of Treatment Upcoming Encounters Date Type Department Care Team (Late st Contact Info) Description 04/28/2024 11:00 AM [place] [phone] Molly Cui, [facility] [place] [address] 04/28/2024 2:00 PM EST Office [place] [phone] Molly Cui, [facility] [place] [address] documented as of this encounter Procedures Procedure Name Priority Date/Time Associated Diagnosis Comments NM PET CT SKULL BASE TO MID-THIGH ([facility]) Routine 10/24/2023 12:50 PM EDT Lung nodule documented in this encounter Results * NM PET CT Skull Base to Mid-thigh (10/24/2023 12:50 PM EDT) WORKSTATION ID [id number] RAD Anatomical Region Laterality Modality Positron Emissio [...] questions please contact the health patient care technician that requested your imaging first. ? Electronically signed by: Hernan Winkler [facility] ([phone]), at 10/24/2023 3:59 PM Narrative 10/24/2023 3:59 PM EDT EXAMINATION: NM PET CT STANDARD SKULL BASE TO MID-THIGH CLINICAL HISTORY: lll nodule 2 cm (doubled in size); evaluate for malignancy R91.1, Solitary pulmonary nodule TECHNIQUE: Following IV injection of 04-kdypww-9-deoxyglucose (FDG) a standard uptake of approximately 60 [...] pulmonary nodule TECHNIQUE: Following IV injection of 35-vjnqix-9-deoxyglucose (FDG) astandard uptake of approximately 60 minutes, [...] have questions please contactthe health patient care technician that requested your imaging first. Electronically signed by: Hernan Winkler [facility] ([phone]),at 10/24/2023 3:59 PM Aysha Johnson MD IMG [...] Arm documented in this encounter Care Teams Precinct I Police Sergeant Relationship Specialty Start Date End Date Salome Mcarthur, GENDER STUDIES PROFESSOR [address] [place] [address] PCP - General Family Medicine 05/30/15 12/11/23 documented as of this encounter
--- OUTSIDE RECORDS SUMMARY | 2024-03-23 12:35 | XMS_ITS | Encounter Summary ---
Author Organization [facility] [place] [address] Care Team Providers Care Shipfitters Supervisor Name Role Phone Aysha Johnson MD Primary Care Provider [phone] Reason for Visit * Diagnostic Test (Routine) - Closed Specialty Diagnoses / Procedures Referred By Contac t Referred To Contact Radiology Diagnoses Chest pain on breathing Procedures NM Pharmacologic Stress and Rest Myocardial Perfusion NM Exercise Stress and Rest Myocardial Perfusion Jac Cheng MD [facility] [place] [address] [facility] [place] [address] Referral ID Status Reason Start Date Expiration Date V isits Requested Visits Authorized [id number] Closed Specialty Service Requested 12/10/2023 06/08/2025 1 1 Encounter Details Date Type Department Care Team (Latest Contact Info) Description 12/20/2023 9:39 AM EDT Hospital Encounter [place] [address] Rebeka Orosco MD [facility] [place] [address] Chest pain on breathing Discharge Disposition: Home Social History Tobacco Use Types Packs/Day Years Used Date Smoking Tobacco: Never Smokeless Tobacco: Never Alcohol Use Standard Drinks/Week Comments Yes 0 (1 standard drink = 0.6 oz pur e alcohol) once per year [facility] Inpatient Questions Answer Date Recorded Does [...] type, unspecified whether angina present, unspecified whether [place] or transplanted heart Place 1 tablet under the tongue every 5 minutes as needed for Chest pain. 25 tablet 12 12/13/2023 ranolazine ER (Ranexa) 500 mg ER 12 hr tabletIndications:Luis nary artery disease, unspecified vessel or lesion type, unspecified whether angina present, unspecified whether [place] or transplanted heart Take 1 tablet by mouth 2 times daily. 60 tablet 12/13/2023 isosorbide mononitrate CR (Imdur) 30 mg ER 24 hr tablet Take 30 mg by mouth 2 times daily. apauhttezt-xzowjug-euc feine (Fiorinal) 50-325-40 mg tablet Take 1 [...] directed. 05/02/2020 fluticasone propionate (FLONASE) 50 mcg/actuation Rowe, Suspension 1 spray daily. pramipexole (MIRAPEX) 0.125 [...] 04/28/2024 11:00 AM [place] [address] Molly Cui, [facility] [place] [address] 04/28/2024 2:00 PM EST Office [place] [phone] Molly Cui, [facility] [place] [address] documented as of this encounter Procedures Procedure Name Priority Date/Time Associated Diagnosis Comments NM PHARMACOLOGIC STRESS AND REST MYOCARDIAL PERFUSION Routine 12/20/2023 11:27 AM EDT Chest pain on breathing documented in this encounter Results * NM Pharmacologic Stress and Rest Myocardial Perfusion (12/20/2023 11:27 AM EDT) WORKSTATION ID [id number] [facility] Anatomical Region Laterality Modality Nuclear Medicine [...] have questions please contact the health home day care provider that requested your imaging first. ? Narrative [...] patients who have questions please contactthe health home day care provider that requested your imaging first. Rebeka Orosco MD IMG NM ORDERABLES documented in this encounter Visit Diagnoses Diagnosis Chest pain on breathing Painful respiration documented in this encounter Administered Medications Inactive Administered Medications - up to 3 most recent administrations Medication Order MAR Action Action Date Dose Rate Site technetium (Tc-99m) sestamibi injection 0-30 mCi 0-30 mCi, Intravenous, 2 TIMES DAILY PRN, 2 doses, Starting on Sat12/20/23 at 1030, Until Sat12/20/23 at 1130, Per Protocol, Radiology Contrast, Routine Given 12/20/2023 11:30 AM EDT 29.7 mCi Right Arm Given 12/20/2023 10:20 AM EDT 9.8 mCi documented in this encounter Care Teams Shipfitters Supervisor Relationship Specialty Start Date End Date Aysha Johnson MD [address] [place] [address] PCP - General Family Medicine 12/12/23 documented as of this encounter
--- OUTSIDE RECORDS SUMMARY | 2024-03-23 12:35 | XMS_ITS | Encounter Summary ---
Author Organization [facility] [place] [address] Care Team Providers Care Glass Cleaning Machine Tender Name Role Phone Aysha Johnson MD Primary Care Provider [phone] Encounter Details Date Type Department Care Team (Late st Contact Info) Description 12/16/2023 Telephone Cardiology at [address] [phone] Katelynn Fan, RN Social History Tobacco Use Types Packs/Day Years Used Date Smoking Tobacco: Never Smokeless Tobacco: Never Alcohol Use Standard Drinks/Week Comments Yes 0 (1 standard drink = 0.6 oz pur e alcohol) once per year [facility] Inpatient Questions Answer Date Recorded Does Anyone [...] Miscellaneous Notes * Telephone Encounter - Katelynn Fan RN - 12/16/2023 9:37 AM EDT VM from patient stating she received [facility] from Dr Gibson [facility] to the [facility] in [facility]. Patient requested change. Home number left for call back. RTC to patient stating prescriptions for both NTG and ranolazine were approved and prescriptions sent to the [facility] in [facility]. Patient verbalizes understanding and has no further questions or concerns at this time. Katelynn Fna RN, BSN Amb[facility], [facility] [phone] Katelynn Fan RN, BSN Ambulatory Cardiology Clinic, [facility] [phone] documented in this encounter Plan of Treatment Upcoming Encounters Date Type Department Care Team (Late st Contact Info) Description 04/28/2024 11:00 AM EST Appointment [place] [address] Molly Cui, [facility] [place] [address] 04/28/2024 2:00 PM EST Office Visit [place] [phone] Molly Cui, [facility] [place] [address] documented as of this encounter Visit Diagnoses Not on filedocumented in this encounter Care Teams Glass Cleaning Machine Tender Relationship Specialty Start Date End Date Aysha Johnson MD [address] [address] PCP - General Family Medicine 12/12/23 documented as of this encounter
--- OUTSIDE RECORDS SUMMARY | 2024-03-23 12:35 | XMS_ITS | Encounter Summary ---
[facility] [place] [address] Care Team Providers Care Hooker Operator Name Role Phone Salome Mcarthur APRN Primary Care Provider [phone] Encounter Details Date Type Department Care Team [...] 04/28/2024 11:00 AM [place] [address] Molly Cui PSYCHOLOGIST [facility] [place] [address] 04/28/2024 2:00 PM EST Office [place] [address] Molly Cui [facility] [place] [address] documented as of this encounter Visit Diagnoses Not on filedocumented in this encounter Care Teams Hooker Operator Relationship Specialty Start Date End Date Salome Mcarthur APRN [address] [address] PCP - General Family Medicine 05/30/15 12/11/23 documented as of this encounter
--- OUTSIDE RECORDS SUMMARY | 2024-03-23 12:35 | XMS_ITS | Encounter Summary ---
Author Organization Former[facility] Address [facility] [place] [address] Care Team Providers Care Power Screwdriver Operator Name Role Phone Salome Mcarthur APRN Primary Care Provider [phone] Reason for Visit * Reason Comments Leg Swelling Encounter Details Date Type Department Care Team (Late st Contact Info) Description 12/06/2023 11:47 AM EDT - 12/06/2023 5:37 PM EDT [place] [address] Nicole Hollingsworth MD [facility] DR EMERGENCY [place] [address] MARTÍNEZ (dyspnea on exertion); Exertional chest pain Discharge Disposition: Home Social History Tobacco Use [...] Sign Reading Time Taken Comments Blood Pressure 140/80 12/06/2023 5:30 PM EDT Pulse 81 12/06/2023 5:30 PM EDT Temperature 36.1 ??C (97 ??F) 12/06/2023 11:28 AM EDT Respiratory Rate 23 12/06/2023 5:30 PM EDT Oxygen Saturation 94% 12/06/2023 3:34 PM EDT Inhaled Oxygen Concentration - - Weight 63.5 kg (140 lb) 12/06/2023 11:28 AM EDT Height 154.9 cm (5' 1) 12/06/2023 11:28 AM EDT Body Mass Index 26.45 12/06/2023 11:28 AM EDT documented in this encounter Discharge Instructions * Discharge Instructions* Nicole Hollingsworth MD - 12/06/2023 5:24 PM EDT You were seen in the emergency department with worsening shortness of breath on exertion and chest pain on exertion. You were not found to have any congestive heart failure based on chest x-ray, lab work or echocardiogram. Your EKG and troponin test showed no evidence of a heart attack. You were evaluated by cardiology. They did not feel admission to the cardiology service was warranted. It is recommended that you have a nuclear stress test as an outpatient and we will discuss with cardiology getting this arranged and also will discuss a follow-up appointment with cardiology as an outpatient as well. If at any point you are noticing that your chest pain or shortness of breath are worsening or if you are getting it with less exertion you should come back for reevaluation immediately. Follow-up with your primary care physician as well. Continue your furosemide/Lasix 10 mg once a day. * Attachments The following attachments cannot be sent through Care Everywhere. * Chest Pain (Spanish) * SOB (Shortness of Breath) (Spanish) documented in this encounter Medications at Time of Discharge Medication Sig Dispensed Refills Start Date End Date isosorbide mononitrate CR (Imdur) 30 mg ER 24 hr tablet Take 30 mg by mouth 2 times daily. ddvgssshpm-rabrayl-nmj feine (Fiorinal) 50-325-40 mg tablet Take 1 [...] directed. 05/02/2020 fluticasone propionate (FLONASE) 50 mcg/actuation [place], Suspension 1 spray daily. pramipexole (MIRAPEX) 0.125 [...] 100 mg capsule Take by mouth. 02/24/2009 nitroGLYcerin (Nitrostat) 0.[address] 0.4 mg under the tongue every 5 minutes as needed for Chest pain. 12/13/2023 amitriptyline (Elavil) 50 mg tablet Take 1 tablet by mouth nightly. 12/23/2023 omeprazole (PriLOSEC) [address] capsuleIndications:Gas troesophageal reflux disease without esophagitis TAKE 1 CAPSULE BY MOUTH DAILY 90 capsule 1 04/29/2023 01/20/2024 clonazePAM (KLONOPIN) 0.5 mg Tablet nightly. 02/21/2015 12/20/2023 documented as of this encounter ED Notes * Mami Benton RN - 12/06/2023 5:37 PM EDT Verbalized understanding of discharge instructions. Steady gait when leaving. IV removed * Nicole Hanson, - 12/06/2023 4:30 PM EDT ED RESIDENT NOTE Patient: Nick Mendieta Age (): 83 y.o. (1940) SUBJECTIVE HPI: Nick Mendieta is a 83 y.o. female with a PMH notable for bladder cancer, NAFLD, hepatic cirrhosis who presented to the ED for leg swelling. The patient presents for several months of dyspnea on exertion and chest pain with exertion for which she is being evaluated by cardiology at [facility] and recommended she start Lasix yesterday. She has had 110 mg dose of Lasix yesterday. Shenotes that over the past 2 weeks she has had increasing bilateral lower extremity edema that is moved superiorly and is now associated with diffuse abdominal edema and worsening orthopnea. She deniesany chest pain today but is extremely dyspneic which is notable with her speech. She denies fever or chills, GI symptoms, syncope, URI symptoms, abdominal pain. History was obtained from patient at bedside. ROS as per HPI. Past Medical and Surgical Histories, Social History, Medications, Allergies were reviewed in the chart. Pt was seen under the supervision of an attending physician. OBJECTIVE Vital Signs: ED Triage Vitals [12/06/23 1128] BP: 160/74 Heart Rate: 94 Resp: 18 Temp: 36.1 ??C (97 ??F) Temp src: Temporal SpO2: 97 % O2 Device: n/a O2 Flow Rate (L/min): n/a Physical Exam Vitals and nursing note reviewed. Constitutional: General: She is not in acute distress. HENT: Head: Normocephalic and atraumatic. Right Ear: External ear normal. Left Ear: External ear normal. Nose: Nose normal. Mouth/Throat: Pharynx: Oropharynx is clear. Eyes: Conjunctiva/sclera: Conjunctivae normal. Cardiovascular: Rate and Rhythm: Normal rate and regular rhythm. Pulses: Normal pulses. Heart sounds: Normal heart sounds. No murmur heard. Pulmonary: Effort: Pulmonary effort is normal. No respiratory distress. Breath sounds: Normal breath sounds. Abdominal: General: Abdomen is flat. There is no distension. Palpations: Abdomen is soft. Tenderness: There is no abdominal tenderness. There is no guarding. Musculoskeletal: General: Normal range of motion. Cervical back: Normal range of motion. Skin: General: Skin is warm and dry. Capillary Refill: Capillary refill takes less than 2 seconds. Coloration: Skin is not jaundiced or pale. Findings: No bruising or erythema. Neurological: Mental Status: She is alert and oriented to person, place, and time. Sensory: No sensory deficit. Motor: No weakness. Psychiatric: Behavior: Behavior normal. I reviewed the EKG tracing: Rhythm: Normal sinus rhythm at 89 bpm without ectopy or signs of ischemia. Last 3 wbc, hgb, hct plt Recent Labs 12/06/23 1143 08/08/23 1219 WBC 4.98 5.4 HGB 12.0 12.8 HCT 37.2 38.5 PLATELET 78* 78* Last 3 Lytes Recent Labs 12/06/23 1143 08/08/23 1219 NA 137 144 K 4.1 4.1 CL 100 101 CO2 24 28 BUN 18 19* CREATININE 0.58* 0.72 Last 3 LFTs Recent Labs 08/08/23 1219 AST 34* ALT 33* ALKPHOS 121* BILITOT 0.5 Last Ca, Mg, Phos Recent Labs 12/06/23 1143 CALCIUM 9.7 MAGNESIUM 0.49* Last 3 ProBNP, Trop, CK Recent Labs 12/06/23 1143 PROBNP 266 I have reviewed imaging, which is significant for: XR Chest PA & Lateral (Generic) Final Result Unchanged right upper and left lower lobe pulmonary nodules. No acute cardiopulmonary abnormality. Thank you for letting us participate in the care of this patient. If you are a health care provider and have any questions regarding this report, please contact the number below. For patients who have questions please contact the health primary care nurse practitioner that requested your imaging first. Pharmacologic Stress CT Component (Results Pending) NM Pharmacologic Stress and Rest Myocardial Perfusion (Results Pending) I performed the following procedure(s): None ASSESSMENT & PLAN MDM: ED Course as of 12/06/23 1647 SatDec 06, 2023 1358 NT-proBNP: 266 1400 Troponin - Series 1446 Cards paged 1451 Cards to see 1646 Lactate WB(!): 3.4 Nick Mendieta was evaluated for leg swelling. The patient has had worsening dyspnea on exertionand chest pain with exertion over the past 3 months for which she is being evaluated at [facility]. Over last 2 weeks her leg swelling has become acutely worse moving superiorly and now she has increasing abdominal girth and weight gain. She is now sleeping on 3 pillows at night becauseof her orthopnea and dyspneic even with conversation. She spoke with her cargo vessel stewardess over the lastseveral days who recommended Lasix and she has had a single dose of 10 mg Lasix yesterday. She denies any chest pain and is overall well-appearing with reassuring vital signs. She has bilateral crackles on auscultation and bilateral B-lines on ultrasound. Her bedside ultrasound is reassuring for EF and also negative for pericardial effusion. Given her history and exam I am concerned for undiagnosed heart failure and angina. She had laboratory studies which showed a normal BNP and a negative troponin series. Her EKG is reassuring. Her laboratory studies are otherwise unremarkable sans hyperglycemia. She has a heart score of 4. Given her concerning story and exam I consulted cardiology and ordered a transthoracic echo which showed: Left ventricular size and systolic function are normal. Left ventricular ejection fraction is estimated visually at 60-65%. There are no segmental wall motion abnormalities. Right ventricular systolic function is normal. There is mild aortic stenosis. DIAGNOSIS: 1. MARTÍNEZ (dyspnea on exertion) PLAN: The patient was signed out at end of shift to the oncoming ED resident pending cardiology recommendations. Given that she has a reassuring echo she may likely get outpatient follow-up for evaluation of her potential heart failure. Nicole Hanson D.O. Emergency Medicine Resident, PGY-2 12/06/23 4:35 PM Nicole Hanson DO Resident 12/06/23 1636 Nicole Hanson, Resident 12/06/23 1637 Nicole Hanson, Resident 12/06/23 1648 Associated attestation - Nicole Hollingsworth MD - 12/07/2023 6:44 AM EDT ED ATTENDING ATTESTATION NOTE The patient was seen in conjunction with the resident physician. I have independently performed thekey portions of the history and physical exam. I have reviewed the diagnostic studies including labs, imaging studies and EKGs. I have discussed the details of the case with the resident and agree with the assessment and plan as described in the resident note unless noted below or in my separate note. * Mami Benton RN - 12/06/2023 2:38 PM EDT Pure wick placed for pt's comfort * Nicole Hollingsworth MD - 12/06/2023 1:50 PM EDT ED Attending Brief Note The patient was seen in conjunction with the resident physician. I have independently performed thekey portions of the history and physical exam. I have reviewed the diagnostic studies including labs, imaging studies and EKGs. I have discussed the details of the case with the resident. Brief Summary: 83 y.o. female with who comes to the emergency department with months of worsening dyspnea on exertion which has been getting much worse over the past 2 weeks. Increasing lower extremity edema and increasing abdominal girth. She is also gone from 2 pillows of orthopnea to 3 pillows orthopnea. She has a cargo vessel stewardess who started her on 10 mg of Lasix per day yesterday. She says her cargo vessel stewardess thinks that she needs a cardiac catheterization. She has been having exertional chest pain and taking nitro twice a day for that pain. Vital signs were significant for some hypertension with a blood pressure 150/70. Exam is significant for no increased work of breathing in bed Abdomen is nontender and softly distended Lower extremity edema is 1+ bilaterally We have ordered labs including a troponins and proBNP, echocardiogram, chest x- ray. When we have her creatinine we will order her some IV Lasix and we plan to discuss her case with cardiology when her workup is complete. I anticipate admission to cardiology for worsening congestive heart failure and possible unstable angina Cardiology evaluated the patient. She had an echocardiogram that showed a good EF and no significant valvular disease. Her lab work did not show any evidence of ACS or acute congestive heart failure.Her chest x-ray was clear. Cardiology did not feel she warranted admission to their service. Were unable to get a nuclear stress test until next Saturday because of the holiday weekend. We would like her to have a stress test to evaluate for ischemia given her exertional chest tightness. We will discuss this with cardiology and asked them to arrange for an outpatient study and an urgent follow-up in the cardiology clinic. We have counseled her to return immediately for reevaluation if she has any worsening symptoms or symptoms with less exertion or if she has any other concerns.She will continue her 10 mg of Lasix a day and will follow-up with her primary care physician. Nicole Hollingsworth MD 12/06/23 1205 Nicole Hollingsworth MD 12/06/23 4169 * Jessica Luu MD - 12/06/2023 11:27 AM EDT Telehealth [id number] Note: The following documentation is provided in my role as a TeleEmergency Physician and reflects a live audiovisual interaction. Brief HPI: 83y/o woman with history of HTN, DM, presents to the ED with swelling in her legs. It has been gradually worsening over the last 2 weeks. She has worsening dyspnea on exertion. Brief Physical Exam: Vital signs reviewed General appearance: Alert, oriented. Walks with a cane. Normal work of breathing. Tests Ordered: EKG, CBC, BMP, troponin series. Preliminary testing was ordered. The patient is awaiting a bed in the Emergency Department. Jessica Luu MD 12/06/23 1129 documented in this encounter Miscellaneous Notes * ED Triage - Kusum Perera RN - 12/06/2023 11:30 AM EDT Pt arrives ambulatory with cane. A&Ox4 speaking in full sentences. Pt reports worsening leg swelling over the last two weeks. Started on extended release nitro twice a day a week ago. Pt reports worsening MARTÍNEZ. Denies CP. Respirations even and non labored. Skin p/w/d. NAD at this time. documented in this encounter Plan of Treatment Upcoming Encounters Date Type Department Care Team (Late st Contact Info) Description 04/28/2024 11:00 AM EST [place] [address] Molly Cui APRN [facility] [place] [address] 04/28/2024 2:00 PM EST Office [place] [phone] Molly Cui APRN [facility] [place] [address] Scheduled Orders Name Type Priority Associated Diagnoses Orde r Schedule EKG 12 Lead ECG STAT One Time for 1 Occurrences starting 12/06/2023 until 12/06/2023 documented as of this encounter Procedures Procedure Name Priority Date/Time Associated Diagnosis Comments LACTATE, WHOLE BLOOD STAT 12/06/2023 5:00 PM EDT ECHO COMPLETE Routine 12/06/2023 2:33 PM EDT MARTÍNEZ (dyspnea on exertion) XR CHEST PA AND LATERAL STAT 12/06/2023 12:49 PM EDT BLOOD GAS VENOUS POC Routine 12/06/2023 12:42 PM EDT RAINBOW TUBE HOLD STAT 12/06/2023 12: 37 PM EDT GOLD TUBE HOLD STAT 12/06/2023 12:37 PM EDT BLUE TUBE HOLD STAT 12/06/2023 12:37 PM EDT LAVENDER TUBE HOLD STAT 12/06/2023 12 :37 PM EDT HEMOGLOBIN A1C STAT Add-On 12/06/2023 12:37 PM EDT EKG 12-LEAD STAT 12/06/2023 12:36 PM EDT TROPONIN-T, HIGH SENSITIVITY 1 HOUR PERFORMABLE STAT 12/06/2023 12:36 PM EDT LDL CHOLESTEROL, DIRECT STAT Add-On 12/06/2023 12:36 PM EDT HDL/CHOL PROFILE STAT Add-On 12/06/2023 12:3 6 PM EDT TROPONIN-T, HIGH SENSITIVITY INITIAL PERFORMABLE STAT 12/06/2023 11:43 AM EDT EXTRA TUBES STAT 12/06/2023 11:43 AM EDT TROPONIN - SERIES STAT 12/06/2023 11: 43 AM EDT GOLD TUBE HOLD STAT 12/06/2023 11:43 AM EDT BLUE TUBE HOLD STAT 12/06/2023 11:43 AM EDT CBC (WITH DIFF) STAT 12/06/2023 11:43 AM EDT PRO-BRAIN NATRIURETIC PEPTIDE STAT Add-On 12/06/2023 11:43 AM EDT MAGNESIUM STAT Add-On 12/06/2023 11:43 AM EDT BASIC METABOLIC PANEL STAT 12/06/2023 11:43 AM EDT documented in this encounter Results * (ABNORMAL) Lactate, Whole Blood (12/06/2023 5:00 PM EDT) Pathologist [facility] Emergency Department Lactate, Whole Blood 2.8(H) 0.5 - 2.2 mmol/L 12/06/2023 5:06 PM EDT [facility] Blood VENOUS BLOOD SPECIMEN / Unknown IP Care Team Draw / Unknown 12/06/2023 5:00 PM EDT 12/06/2023 5:04 PM EDT Nicole Hollingsworth MD CHEMISTRY ORDERABLE S [facility] [place] [address] * ECHO COMPLETE (12/06/2023 2:33 PM EDT) EF 60 HEARTLAB SYSTEM Anatomical Region Laterality Modality Cardiac Other 12/06/2023 1:50 PM EDT Narrative 12/06/2023 2:38 PM EDT 1 [place] [address] ? Echocardiogram Report Name: NICK MENDIETA Yue ?Study Date: 12/06/2023 01:50 PM ? Patient Location: ED ED15 1 : 1940 ? Height: 155 cm ? Account: [id number] Age: 83 yrs ? Weight: 64 kg Gender: Female ?BSA: 1.6 m2 Ordering Physician: NICOLE HOLLINGSWORTH Performed By: Megan Tamayo RDCS Reason For Study: MARTÍNEZ Exam Location: [facility]. Interpretation Summary Left ventricular size and systolic function are normal. Left ventricular ejection fraction is estimated visually at 60-65%. There are no segmental wall motion abnormalities. Right ventricular systolic function is normal. There is mild aortic stenosis. No prior studies for comparison Procedure [id number]. Image enhancement Optison was used for left ventricular opacification. Satisfactory quality. Left Ventricle Left ventricle is of normal size. Wall thickness is normal. Left ventricular size and systolic function are normal. Left ventricular ejection fraction is estimated visually at 60-65%. There are no segmental wall motion abnormalities. Right Ventricle The right ventricle is of normal size. Right ventricular systolic function is normal. Left Atrium The left atrium is normal. No abnormality of the interatrial septum is identified. Right Atrium The right atrium is probably normal in size. Aortic Valve The aortic valve is structurally and functionally normal. The aortic valve is mildly thickened. The aortic valve is mildly calcified. There is mild aortic stenosis. There is trace aortic regurgitation. Mitral Valve The mitral valve is structurally and functionally normal. The mitral valve leaflets are thickened. There is mitral annular calcification. There is no mitral stenosis. There is mild mitral regurgitation. Tricuspid Valve The tricuspid valve is structurally and functionally normal. There is no tricuspid stenosis. There is no tricuspid regurgitation. Pulmonic Valve The pulmonic valve is not well visualized. Great Arteries The diameter at the level of the sinuses of Valsalva is 2.7 cm. The ascending aorta is not well visualized. Venous Inferior vena cava is normal in size. Inferior vena cava collapse greater than 50% with respiration. Pericardium/Pleural There is no pericardial effusion. Hemodynamics Pulmonary artery hypertension could not be assessed due to inadequate tricuspid regurgitation jet. Left ventricular diastolic function is normal. Ejection Fraction ?2D Measurements ? Volumes EF(MOD-bp): 65.4 % ?IVSd: 0.83 cm ?LAV(MOD- bp) Indexed: ?LVIDd: 5.1 cm ?LVIDs: 3.5 cm ?34.6 ml/m2 ? EDV(MOD-bp) Indexed: ?LVPWd: 1.1 cm ?35.5 ml/m2 ?RWT: 0.43 {ratio} ?ESV(MOD-bp) Indexed: ?LV mass(C)d: 175.4 grams ?LV mass(C)dI: 108.0 grams/m2 ?? 12.3 ml/m2 ?Ao root diam: 2.7 cm ? SV(LVOT): 55.4 ml ?Ao root diam index: 1.6 ?SI(LVOT): 34.1 ml/m2 ?LVOT diam: 2.0 cm ?TAPSE_phl: 1.7 cm Doppler LV V1 VTI: 18.0 cm Ao V2 VTI: 38.5 cm Ao Max: 199.5 cm/sec Ao valve max: 15.9 mmHg Ao valve mean: 8.0 mmHg MV E max shalom: 83.6 cm/sec MV A max shalom: 126.4 cm/sec MV E/A: 0.66 MV dec time: 0.29 sec Lat Peak E' Shalom: 8.5 cm/sec E/e' (lat): 9.9 Med Peak E' Shalom: 6.0 cm/sec E/e' (med): 14.0 E/e' Average: 11.9 CHARITY(I,D): 1.4 cm2 Dimensionless index Aov: 0.47 Procedure Note Sony Alicea MD - 12/06/2023 1 [place] [address] Echocardiogram Report Name: NICK MENDIETA Study Date: 401:50 PM Patient Location: [facility] 1 : 1940 Height: 155 cm Account: [id number] Age: 83 yrs Weight: 64 kg Gender: Female BSA: 1.6 m2 Ordering Physician: NICOLE HOLLINGSWORTH Performed By: Megan Tamayo RDCS Reason For Study: MARTÍNEZ Exam Location: [facility]. Interpretation Summary Left ventricular size and systolic function are normal. Left ventricularejection fraction is estimated visually at 60-65%. There are no segmental wallmotion abnormalities. Right ventricular systolic function is normal. There is mild aortic stenosis. No prior studies for comparison Procedure [id number]. Image enhancement Optison was used for left ventricular opacification. Satisfactory quality. Left Ventricle Left ventricle is of normal size. Wall thickness is normal. Leftventricular size and systolic function are normal. Left ventricular ejection fraction isestimated visually at 60-65%. There are no segmental wall motion abnormalities. Right Ventricle The right ventricle is of normal size. Right ventricular systolic functionis normal. Left Atrium The left atrium is normal. No abnormality of the interatrial septum isidentified. Right Atrium The right atrium is probably normal in size. Aortic Valve The aortic valve is structurally and functionally normal. The aortic valveis mildly thickened. The aortic valve is mildly calcified. There is mildaortic stenosis. There is trace aortic regurgitation. Mitral Valve The mitral valve is structurally and functionally normal. The mitralvalve leaflets are thickened. There is mitral annular calcification. There is nomitral stenosis. There is mild mitral regurgitation. Tricuspid Valve The tricuspid valve is structurally and functionally normal. There is notricuspid stenosis. There is no tricuspid regurgitation. Pulmonic Valve The pulmonic valve is not well visualized. Great Arteries The diameter at the level of the sinuses of Valsalva is 2.7 cm. Theascending aorta is not well visualized. Venous Inferior vena cava is normal in size. Inferior vena cava collapse greaterthan 50% with respiration. Pericardium/Pleural There is no pericardial effusion. Hemodynamics Pulmonary artery hypertension could not be assessed due to inadequatetricuspid regurgitation jet. Left ventricular diastolic function is normal. Ejection Fraction 2D Measurements Volumes EF(MOD-bp): 65.4 % IVSd: 0.83 cm LAV(MOD-bp)Indexed: LVIDd: 5.1 cm LVIDs: 3.5 cm 34.6 ml/m2 EDV(MOD-bp)Indexed: LVPWd: 1.1 cm 35.5 ml/m2 RWT: 0.43 {ratio} ESV(MOD-bp)Indexed: LV mass(C)d: 175.4 grams LV mass(C)dI: 108.0 grams/m2 12.3 ml/m2 Ao root diam: 2.7 cm SV(LVOT): 55.4ml Ao root diam index: 1.6 SI(LVOT): 34.1ml/m2 LVOT diam: 2.0 cm TAPSE_phl: 1.7 cm Doppler LV V1 VTI: 18.0 cm Ao V2 VTI: 38.5 cm Ao Max: 199.5 cm/sec Ao valve max: 15.9 mmHg Ao valve mean: 8.0 mmHg MV E max shalom: 83.6 cm/sec MV A max shalom: 126.4 cm/sec MV E/A: 0.66 MV dec time: 0.29 sec Lat Peak E' Shalom: 8.5 cm/sec E/e' (lat): 9.9 Med Peak E' Shalom: 6.0 cm/sec E/e' (med): 14.0 E/e' Average: 11.9 CHARITY(I,D): 1.4 cm2 Dimensionless index Aov: 0.47 Nicole Hollingsworth MD ECHO ORDERABLES * XR Chest PA & Lateral (Generic) (12/06/2023 12:49 PM EDT) WORKSTATION ID [id number] RAD Anatomical Region Laterality Modality Chest N/A Digital Radiogra phy Impressions 12/06/2023 1:15 PM EDT Unchanged right upper and left lower lobe pulmonary nodules. No acute cardiopulmonary abnormality. Thank you for letting us participate in the care of this patient. ??If you are a health care provider and have any questions regarding this report, please contact the number below. ??For patients who have questions please contact the health primary care nurse practitioner that requested your imaging first. ? Narrative 12/06/2023 1:15 PM EDT EXAMINATION: XR CHEST PA AND LATERAL (GENERIC) CLINICAL HISTORY: sob, martínez TECHNIQUE: PA and lateral views of the chest COMPARISON: Chest radiographs March 29, 2017 and September 30, 2023 CT chest September 30, 2023 FINDINGS: Round, retrocardiac left lower lobe nodule measures approximately 1.8 cm. Ill-defined peripheral nodule in the inferior segment of right upper lobe. Lungs are otherwise clear without pleural effusion or pneumothorax. Cardiomediastinal contours and pulmonary vasculature are normal. Unchanged atherosclerotic aortic calcification. No free air below the diaphragm or focal extrathoracic soft tissue abnormality. No displaced fracture or destructive bone lesion. Mild thoracic spondylosis. Procedure Note Khloe Keith MD - 12/06/2023 EXAMINATION: XR CHEST PA AND LATERAL (GENERIC) CLINICAL HISTORY: sob, martínez TECHNIQUE: PA and lateral views of the chest COMPARISON: Chest radiographs March 29, 2017 and September 30, 2023 CT chest September 30, 2023 FINDINGS: Round, retrocardiac left lower lobe nodule measures approximately 1.8cm. Ill-defined peripheral nodule in the inferior segment of right upperlobe. Lungs are otherwise clear without pleural effusion or pneumothorax. Cardiomediastinal contours and pulmonary vasculature are normal.Unchanged atherosclerotic aortic calcification. No free air below the diaphragm or focal extrathoracic soft tissueabnormality. No displaced fracture or destructive bone lesion. Mild thoracicspondylosis. IMPRESSION Unchanged right upper and left lower lobe pulmonary nodules. No acute cardiopulmonary abnormality. Thank you for letting us participate in the care of this patient. If youare a health care provider and have any questions regarding this report,please contact the number below. For patients who have questions please contactthe health primary care nurse practitioner that requested your imaging first. Nicole Hollingsworth MD IMG DX ORDERABLES * (ABNORMAL) Blood Gas, Venous POC (12/06/2023 12:42 PM EDT) pH, Venous 7.38 7.32 - 7.42 12/06/2023 12:46 PM EDT [facility] PCO2, Venous 48 38 - 58 mmHg 12/06/2023 12:46 PM EDT [facility] PO2, Venous 25 16 - 65 mmHg 12/06/2023 12:46 PM EDT [facility] Bicarbonate, Venous 28.0 22 - 31 mmol/L 12/06/2023 12:46 PM EDT [facility] Base Excess, Venous 3.0 1.9 - 4.5 mmol/L 12/06/2023 12:46 PM EDT [facility] Hemoglobin, Venous 12.2 11.7 - 15.5 g/dL 12/06/2023 12:46 PM EDT [facility] Oxyhemoglobin, Venous 46.3 % 12/06/2023 12:46 PM EDT [facility] Carboxyhemoglobin, Venous 1.3 % 12/06/2023 12:46 PM EDT [facility] Comment: Nonsmokers: 0.5-1.5% COHB ?? Smokers: Variable ??but usually less than 10% ?? Toxic: 20-30% COHB ?? Lethal: Greater than 60% COHB Methemoglobin, Venous 0.1 <=1.5 % 12/06/2023 12:46 PM EDT [facility] Sodium, Venous 137 135 - 145 mmol/L 12/06/2023 12:46 PM EDT [facility] Potassium, Venous 3.7 3.5 - 5.0 mmol/L 12/06/2023 12:46 PM EDT [facility] Chloride, Venous 100 98 - 107 mmol/L 12/06/2023 12:46 PM EDT [facility] Glucose, Venous 226(H) 65 - 199 mg/dL 12/06/2023 12:46 PM EDT [facility] Comment:Glucose Concentratio n >=200 mg/dL plus symptoms is consistent with Diabetes Mellitus. Lactate, Venous 3.4(H) 0.5 - 2.2 mmol/L 12/06/2023 12:46 PM EDT [facility] Ionized Calcium, Venous 1.20 1.15 - 1.33 mmol/L 12/06/2023 12:46 PM EDT [facility] Blood VENOUS BLOOD SPECIMEN / Unknown 12/06/2023 12:42 PM EDT 12/06/2023 12:45 PM EDT Nicole Hollingsworth MD POINT OF CARE TEST ORDERABLES [facility] [place] [address] * (ABNORMAL) Hemoglobin A1c (12/06/2023 12:37 PM EDT) Hemoglobin A1c 7.6(H) 4.3 - 5.6 % 12/06/2023 4:27 PM EDT [facility] Comment: Per ADA guidelines, without clear symptoms of hyperglycemia or a random plasma glucose >199 mg/dL, a single abnormal A1c measurement cannot be used to diagnose diabetes mellitus. The diagnosis must be confirmed by either 1) a concurrent abnormal fasting plasma glucose or impaired response to oral glucose tolerance testing, or 2) an additional abnormal A1c, impaired fasting plasma glucose, or impaired response to oral glucose tolerance testing on a different day. A1c results obtained on patients with altered red blood cell turnover may not be key account representative of glycemic control. Reference Interval: 4.3 - 5.6% 5.7 - 6.4%: Consistent with prediabetes >=6.5%: Consistent with diagnosis of diabetes mellitus Estimated Average Glucose 12/06/2023 4:27 PM EDT [facility] Comment:Not Calculated. Blood VENOUS BLOOD SPECIMEN / Unknown IP Care Team Draw / Unknown 12/06/2023 12:37 PM EDT 12/06/2023 1:03 PM EDT Narrative [facility] - 12/06/2023 4:27 PM EDT Estimated average glucose (eAG) is calculated from the equation described in: Tristin CAST, Hermes J, Kathy R, et al. ??Translating the A1C assay into estimated average glucose values. ??Diabetes Care 2008:31(8):2526-2228. Additional resources are available on the ADA website (diabetes.org). Nicole Hollingsworth MD CHEMISTRY ORDERABLE S [facility] [place] [address] * Gold Tube HOLD (12/06/2023 12:37 PM EDT) Gold Hold Hold for Add-on 12/06/2023 3:01 PM EDT [facility] Blood VENOUS BLOOD SPECIMEN / Unknown IP Care Team Draw / Unknown 12/06/2023 12:37 PM EDT 12/06/2023 1:02 PM EDT Nicole Hollingsworth MD CHEMISTRY ORDERABLE S Performing Organization Address City/[facility]/ZIP Co de Phone Number [facility] [place] [address] * Blue Tube HOLD (12/06/2023 12:37 PM EDT) Blue Hold Hold for Add-on 12/06/2023 3:01 PM EDT [facility] Blood VENOUS BLOOD SPECIMEN / Unknown IP Care Team Draw / Unknown 12/06/2023 12:37 PM EDT 12/06/2023 1:03 PM EDT Nicole Hollingsworth MD HEMATOLOGY ORDERABL ES Performing Organization Address [facility] [place] [address] * Lavender Tube HOLD (12/06/2023 12:37 PM EDT) Lavender Hold Hold for Add-on 12/06/2023 3:01 PM EDT [facility] Blood VENOUS BLOOD SPECIMEN / Unknown IP Care Team Draw / Unknown 12/06/2023 12:37 PM EDT 12/06/2023 1:03 PM EDT Nicole Hollingsworth MD HEMATOLOGY ORDERABL ES Performing Organization Address City/[facility]/ZIP Co de Phone Number [facility] [place] [address] * EKG 12 Lead (12/06/2023 12:36 PM EDT) Ventricular rate 89 BPM MUSE SYSTEM Atrial Rate 89 BPM MUSE SYSTEM P-R Interval 208 ms MUSE SYSTEM QRS Duration 94 ms MUSE SYSTEM Q-T Interval 368 ms MUSE SYSTEM QTC Calculated (Bezet) 447 ms MUSE SYSTEM Calculated P [place] 61 degrees MUSE SYSTEM Calculated R [place] -26 degrees MUSE SYSTEM Calculated T [place] 14 degrees MUSE SYSTEM INTERPRETATION Normal sinus rhythm Normal ECG No previous ECGs available Confirmed by MD MENDOZA ARMIN ([id number]) on 12/06/2023 9:36:35 PM MUSE SYSTEM 12/06/2023 12:3 6 PM EDT 12/06/2023 9:36 PM EDT Jessica Luu MD ECG ORDERABLES MUSE SYSTEM * LDL Cholesterol, Direct (12/06/2023 12:36 PM EDT) LDL Cholesterol, Direct 44 mg/dL 12/06/2023 4:15 PM EDT [facility] Comment: Desirable: <100 mg/dL Above Desirable: 100-129 mg/dL Borderline High: 130-159 mg/dL High: 160-189 mg/dL Very High: > or =190 mg/dL If not reaching LDL goals on maximally tolerated statin, consider ezetimibe and/or a PCSK9 inhibitor: ? * Target for primary prevention: LDL<100 ? * Target for those with ASCVD or diabetes and 10-year risk?20%: LDL<70 ? * Target for those with very high risk ASCVD: LDL<55 (Very high risk being the presence of 2 or more of: recent acute coronary syndrome, past ?myocardial infarction, ischemic stroke, symptomatic peripheral artery disease). Blood VENOUS BLOOD SPECIMEN / Unknown IP Care Team Draw / Unknown 12/06/2023 12:36 PM EDT 12/06/2023 1:03 PM EDT Nicole Hollingsworth MD CHEMISTRY ORDERABLE S [facility] [place] [address] * HDL/Cholesterol Profile (12/06/2023 12:36 PM EDT) Cholesterol, Total 103 mg/dL 12/06/2023 4:15 PM EDT [facility] Comment: Desirable: < 200 mg/dL Borderline High: 200 - 239 mg/dL High: > or = 240 mg/dL HDL Cholesterol 50 mg/dL 4:15 PM EDT [facility] Comment:Female: High Risk: < 50 mg/dL Non-HDL Cholesterol 53 mg/dL 12/06/2023 4:15 PM EDT [facility] Comment: Desirable: <130 mg/dL Above Desirable: 130-159 mg/dL Borderline High: 160-189 mg/dL High: 190-219 mg/dL Very High: > or = 220 mg/dL Blood VENOUS BLOOD SPECIMEN / Unknown IP Care Team Draw / Unknown 12/06/2023 12:36 PM EDT 12/06/2023 1:03 PM EDT Narrative [facility] - 12/06/2023 4:15 PM EDT It is important to review the results of your lipid panel with your health care provider. You can compare your lipid results to the ranges below and whether they are in the desirable range. These ranges are only meant to be used for people without known cardiac disease, history of stroke, or peripheral vascular disease (blockages in the leg arteries or diabetes). If you have one of these conditions, your desirable LDL-C (bad cholesterol) will likely be even lower. ?? ACC/AHA Guidelines (most recently Emy et al. [facility] 01/09/22): * For individuals with atherosclerotic cardiovascular disease (ASCVD) or LDL >=190 mg/dL, use a high-intensity statin(40-80 mg atorvastatin or 20-40 mg rosuvastatin with goal >=50% LDL reduction) * For individuals with diabetes, age 40-75 without ASCVD, moderate-intensity statin (goal 30-49% LDL reduction); consider high intensity statin for those with increased risk. * For adults without diabetes or ASCVD, aged 40-75 with LDL 70-189 mg/dL, estimate 10 year ASCVD risk with smartphrase ??.ASCVDRISK ??or Dynamed Decisions. If 10 year risk is 7.5%-19.9% (intermediate risk), consider moderate intensity statin based on risk enhancers and patient preference. Consider coronary artery calcium test (CT)if there is concern regarding the benefit of a statin. If ten year risk is >=20%, initiate high-intensity statin. * Evaluate for secondary causes of Triglycerides >500 mg/dL or LDL >190 mg/dL. * Lifestyle modification is a critical component of ASCVD risk reduction. * If not reaching LDL goals on maximally tolerated statin, consider ezetimibe and/or a PCSK9 inhibitor: ?* Target for primary prevention: LDL<100 ?* Target for those with ASCVD or diabetes and 10-year risk >=20%: LDL<70 ?* Target for those with very high risk ASCVD: LDL<55 (Very high risk being the presence of 2 or more of: recent acute coronary syndrome, past ? myocardial infarction, ischemic stroke, symptomatic peripheral artery disease) Nicole Hollingsworth MD CHEMISTRY ORDERABLE S [facility] [place] [address] * Troponin-T, High Sensitivity 1 Hour (12/06/2023 12:36 PM EDT) [facility] Troponin-T, High Sensitivity 10 <=14 ng/L 12/06/2023 1:40 PM EDT [facility] Comment: This patient's troponin T concentration was determined using the Janet 5th Generation troponin T assay. According to the fourth universal definition of myocardial infarction, the term acute myocardial infarction should be used when there is acute myocardial injury with clinical evidence of acute myocardial ischemia and with detection of a rise and/or fall of cardiac troponin values with at least one value above the 99th percentile and at least one of the following: - Symptoms of myocardial ischemia; - New ischemic ECG changes; - Development of pathological Q waves; - Imaging evidence of new loss of viable myocardium or new regional wall motion ?? abnormality in a pattern consistent with an ischemic etiology; - Identification of a coronary thrombus by angiography or autopsy (not for type 2 or 3 ?? MIs) Serial measurement of troponin and the change in troponin concentration over time (delta) is crucial for the diagnosis of acute myocardial infarction. Guidance on the interpretation of the new 5th Generation Troponin T values and the delta troponin value can be found in the [facility] Test Catalog Troponin - https://one-.testcatalog.org/catalogs/565/files/97823 Reference: Fourth [place]umpass Definition of Myocardial Infarction. Journal of the [place] College [employer] 2018;72:8641-1439 Troponin-T, HS 1 hr delta 1 ng/L 12/06/2023 1:40 PM EDT [facility] Comment:The 1 hour Troponin T delta value is the absolute difference between the Troponin T concentrations of the initial and subsequent sample collected between 45 - 120 minutes following the initial collection. Blood VENOUS BLOOD SPECIMEN / Unknown IP Care Team Draw / Unknown 12/06/2023 12:36 PM EDT 12/06/2023 1:03 PM EDT Jessica Luu MD CHEMISTRY ORDERABLES Performing Organization Address [facility] Co de Phone Number [facility] [place] [address] * (ABNORMAL) Magnesium (12/06/2023 11:43 AM EDT) Magnesium 0.49(L) 0.69 - 1.07 mMol/L 12/06/2023 1:01 PM EDT [facility] Blood VENOUS BLOOD SPECIMEN / Unknown IP Care Team Draw / Unknown 12/06/2023 11:43 AM EDT 12/06/2023 12:02 PM EDT Nicole Hollingsworth MD CHEMISTRY ORDERABLE S Performing Organization Address City/[facility]/ZIP Co de Phone Number [facility] [place] [address] * pro-Brain Natriuretic Peptide (12/06/2023 11:43 AM EDT) NT-proBNP 266 <=449 pg/mL 12/06/2023 1:01 PM EDT [facility] Blood VENOUS BLOOD SPECIMEN / Unknown IP Care Team Draw / Unknown 12/06/2023 11:43 AM EDT 12/06/2023 12:02 PM EDT Nicole Hollingsworth MD CHEMISTRY ORDERABLE S Performing Organization Address City/[facility]/ZIP Co de Phone Number [facility] [place] [address] * Gold Tube HOLD (12/06/2023 11:43 AM EDT) Gold Hold Hold for Add-on 12/06/2023 2:01 PM EDT [facility] Blood VENOUS BLOOD SPECIMEN / Unknown 12/06/2023 11:43 AM EDT 12/06/2023 12:03 PM EDT Jessica Luu MD CHEMISTRY ORDERABLES [facility] [place] [address] * Blue Tube HOLD (12/06/2023 11:43 AM EDT) Blue Hold Hold for Add-on 12/06/2023 2:01 PM EDT [facility] Blood VENOUS BLOOD SPECIMEN / Unknown 12/06/2023 11:43 AM EDT 12/06/2023 12:03 PM EDT Jessica Luu MD HEMATOLOGY ORDERABLE S [facility] [place] [address] * Troponin-T, High Sensitivity (12/06/2023 11:43 AM EDT) Troponin-T, High Sensitivity Initial 9 <=14 ng/L 12/06/2023 12:39 PM EDT [facility] Comment: This patient's troponin T concentration was determined using the Janet 5th Generation troponin T assay. The 99th percentile for Troponin T for this test is 14 ng/L for females, and 22 ng/L for males. According to the fourth universal definition of myocardial infarction, the term acute myocardial infarction should be used when there is acute myocardial injury with clinical evidence of acute myocardial ischemia and with detection of a rise and/or fall of cardiac troponin values with at least one value above the 99th percentile and at least one of the following: - Symptoms of myocardial ischemia; - New ischemic ECG changes; - Development of pathological Q waves; - Imaging evidence of new loss of viable myocardium or new regional wall motion ?? abnormality in a pattern consistent with an ischemic etiology; - Identification of a coronary thrombus by angiography or autopsy (not for type 2 or 3 ?? MIs) Serial measurement of troponin and the change in troponin concentration over time (delta) is crucial for the diagnosis of acute myocardial infarction. Guidance on the interpretation of the new 5th Generation Troponin T values and the delta troponin value can be found in the [facility] Test Catalog Troponin - https://oneChujian.testcatalog.org/catalogs/565/files/15457 Reference: Fourth [place] Definition of Myocardial Infarction. Journal of the [place] College [employer]iology 2018;72:5395-0598 Blood VENOUS BLOOD SPECIMEN / Unknown IP Care Team Draw / Unknown 12/06/2023 11:43 AM EDT 12/06/2023 12:02 PM EDT Jessica Luu MD CHEMISTRY ORDERABLES [facility] [place] [address] * (ABNORMAL) Basic Metabolic Panel (12/06/2023 11:43 AM EDT) Glucose 248(H) 65 - 199 mg/dL 12/06/2023 12:39 PM EDT [facility] Comment:Glucose Concentratio n >=200 mg/dL plus symptoms is consistent with Diabetes Mellitus. Blood Urea Nitrogen 18 8 - 18 mg/dL 12/06/2023 12:39 PM EDT [facility] Creatinine 0.58(L) 0.70 - 1.20 mg/dL 12/06/2023 12:39 PM EDT [facility] Sodium 137 135 - 145 mMol/L 12/06/2023 12:39 PM EDT [facility] Potassium 4.1 3.5 - 5.0 mMol/L 12/06/2023 12:39 PM EDT [facility] Chloride 100 98 - 107 mMol/L 12/06/2023 12:39 PM EDT [facility] Carbon Dioxide 24 22 - 31 mMol/L 12/06/2023 12:39 PM EDT [facility] Anion Gap 13 5 - 15 mMol/L 12/06/2023 12:39 PM EDT [facility] Calcium 9.7 8.5 - 10.5 mg/dL 12/06/2023 12:39 PM EDT [facility] Est Glomerular Filtration Rate - Female 90 mL/min/1. 73 m?? 12/06/2023 12:39 PM EDT [facility] Comment: [...] eGFR. Link: eGFR Calculator [employer] Blood VENOUS BLOOD SPECIMEN / Unknown IP Care Team Draw / Unknown 12/06/2023 11:43 AM EDT 12/06/2023 12:02 PM EDT Jessica Luu MD CHEMISTRY ORDERABLES [facility] [place] [address] * (ABNORMAL) CBC (with Diff) (12/06/2023 11:43 AM EDT) White Blood Cell 4.98 4.00 - 9.50 x10(3)/mc L 12/06/2023 12:15 PM EDT [facility] Red Blood Cell 3.98(L) 4.00 - 5.21 x10(6)/mc L 12/06/2023 12:15 PM EDT [facility] Hemoglobin 12.0 11.7 - 15.5 g/dL 12/06/2023 12:15 PM [facility] Hematocrit 37.2 35.7 - 45.8 % 12/06/2023 12:15 PM [facility] Mean Cell Volume 93.5 82.6 - 94.4 fL 12/06/2023 12:15 PM [facility] Mean Cell Hemoglobin 30.2 27.1 - 32.0 pg 12/06/2023 12:15 PM [facility] Mean Cell Hemoglobin Concentration 32.3 31.7 - 35.0 g/dL 12/06/2023 12:15 PM [facility] Platelet 78(L) 145 - 357 x10(3)/mc L 12/06/2023 12:15 PM [facility] Mean Platelet Volume 12.8 7.6 - 12.9 fL 12/06/2023 12:15 PM [facility] RDW Standard Deviation 46.0 37.0 - 46.0 fL 12/06/2023 12:15 PM [facility] RDW coefficient of variation 13.5 11.5 - 14.1 % 12/06/2023 12:15 PM [facility] NRBC% auto 0.0 % 12/06/2023 12:15 PM [facility] NRBC Absolute 0.00 0.00 - 0.00 x10(3)/mc L 12/06/2023 12:15 PM [facility] Neutrophil % 63.0 % 12/06/2023 12:15 PM [facility] Neutrophil Absolute (ANC) - Automated 3.14 1.70 - 6.10 x10(3)/mc L 12/06/2023 12:15 PM [facility] Lymph % 22.9 % 12/06/2023 12:15 PM [facility] Lymph Absolute 1.14 0.90 - 3.20 x10(3)/mc L 12/06/2023 12:15 PM [facility] Monocyte % 12.7 % 12/06/2023 12:15 PM EDT [facility] Monocyte Absolute 0.63 0.30 - 0.90 x10(3)/mc L 12/06/2023 12:15 PM EDT [facility] Eos % 1.0 % 12/06/2023 12:15 PM EDT [facility] Eos Absolute 0.05 0.00 - 0.40 x10(3)/mc L 12/06/2023 12:15 PM EDT [facility] Basophil % 0.2 % 12/06/2023 12:15 PM EDT [facility] Baso Absolute 0.01 0.00 - 0.10 x10(3)/mc L 12/06/2023 12:15 PM EDT [facility] Immature Gran % 0.2 % 12:15 PM EDT [facility] Immature Gran Absolute 0.01 0.00 - 0.04 x10(3)/mc L 12/06/2023 12:15 PM EDT [facility] Blood VENOUS BLOOD SPECIMEN / Unknown IP Care Team Draw / Unknown 12/06/2023 11:43 AM EDT 12/06/2023 12:02 PM EDT Jessica Luu MD HEMATOLOGY ORDERABLE S Performing Organization Address City/State/[facility] Co de Phone Number [facility] [place] [address] documented in this encounter Visit Diagnoses Diagnosis MARTÍNEZ (dyspnea on exertion) Other dyspnea and respiratory abnormality Exertional chest pain Chest pain, unspecified documented in this encounter Administered Medications Inactive Administered Medications - up to 3 most recent administrations Medication Order MAR Action Action Date Dose Rate Site furosemide (Lasix) (10 mg/mL) injection 20 mg 20 mg, Intravenous, ONCE, 1 dose, On Sat12/06/23 at 1415 Given 12/06/2023 2:16 PM EDT 20 mg documented in this encounter Active and Recently Administered Medications Times are shown in EDT. Scheduled Medication Order 12/04/2023 12/05/2023 12/06/2023 furosemide (Lasix) (10 mg/mL) injection 20 mg (COMPLETED) 20 mg, Intravenous, ONCE, 1 dose, On Sat12/06/23 at 1415 1416 (Given - Provid er: Mami Benton RN) documented in this encounter Care Teams Power Screwdriver Operator Relationship Specialty Start Date End Date Salome Mcarthur, SOFTWARE ENGINEER INTERN [address] [place] [address] PCP - General Family Medicine 05/30/15 12/11/23 documented as of this encounter
--- OUTSIDE RECORDS SUMMARY | 2024-03-23 12:35 | XMS_ITS | Encounter Summary ---
[place] [address] Care Team Providers Care Client Solutions Director Name Role Phone Salome Mcarthur APRN Primary Care Provider [phone] Reason for Visit * Diagnostic Test (Routine) - Closed Specialty Diagnoses / Procedures Referred By Jose bermudez Referred To Contact Radiology Diagnoses Lung nodule Procedures NM PET CT Skull Base to Mid-thigh Aysha Johnson MD [address] [place] [address] [place] [address] Referral ID Status Reason Start Date Expiration Date V isits Requested Visits Authorized [id number] Closed Specialty Service Requested 10/08/2023 04/09/2025 1 1 Encounter Details Date Type Department Care Team (Latest Contact Info) Description 10/24/2023 11:12 AM EDT - 10/24/2023 11:59 PM EDT Hospital Encounter [place] [phone] Aysha Johnson MD [address] [place] [address] Discharge Disposition: Home Social History [...] directed. 05/02/2020 fluticasone propionate (FLONASE) 50 mcg/actuation [place], Suspension 1 spray daily. pramipexole (MIRAPEX) 0.125 [...] by mouth. 02/24/2009 omeprazole (PriLOSEC) 40 mg capsuleIndications:Gas troesophageal reflux [...] 04/28/2024 11:00 AM EST Appointment [place] [phone] Molly Cui, [facility] [place] [address] 04/28/2024 2:00 PM EST Office Visit [place] [phone] Molly Cui, [facility] [place] [address] documented as of this encounter Procedures Procedure [...] Johnson MD POINT [place] [address] documented in this encounter Visit Diagnoses Not on filedocumented in this encounter Care Teams Client Solutions Director Relationship Specialty Start Date End Date Salome Mcarthur, BATCHING OPERATOR [address] [place] [address] PCP - General Family Medicine 05/30/15 12/11/23 documented as of this encounter
--- OUTSIDE RECORDS SUMMARY | 2024-03-23 12:35 | XMS_ITS | Encounter Summary ---
Author Organization [facility] Address [facility] [place] [address] Care Team Providers Care Non Destructive Testing Technician Name Role Phone Aysha Johnson MD Primary Care Provider [phone] Reason for Visit * Consultation (Routine) - Closed Specialty Diagnoses / Procedures Referred By Contruth t Referred To Contact Cardiology Diagnoses JIMENEZ (dyspnea on exertion) Chest pain, unspecified type Aortic valve stenosis, etiology of cardiac valve disease unspecified Procedures CARDIAC CATHETERIZATION Leland Ortega MD [address] [place] [id number] [facility] [address] [place] [id number] Referral ID Status Reason Start Date Expiration Date V isits Requested Visits Authorized [id number] Closed Consult, Test & Treat 11/27/2023 11/26/2024 1 1 Encounter Details Date Type Department Care Team (Late st Contact Info) Description 12/13/2023 10:00 AM EDT Office Visit Cardiology at [address] [phone] Yonathan Gibson MD [facility] CARDIOLOGY [place], [place] [id number] Coronary artery disease, unspecified vessel or lesion type, unspecified whether angina present, unspecified whether wales or transplanted heart Social History Tobacco Use Types Packs/Day Years [...] Sign Reading Time Taken Comments Blood Pressure 98/49 12/13/2023 10:16 AM EDT Pulse 70 12/13/2023 10:16 AM EDT Temperature - - Respiratory Rate - - Oxygen Saturation 98% 12/13/2023 10:16 AM EDT Inhaled Oxygen Concentration - - Weight 63.2 kg (139 lb 4.8 oz) 12/13/2023 10:16 AM EDT Height 154.9 cm (5' 1) 12/13/2023 10:16 AM EDT Body Mass Index 26.32 12/13/2023 10:16 AM EDT documented in this encounter Progress Notes * Yonathan Gibson MD - 12/13/2023 10:00 AM EDT Images from the original note were not included. [facility] [address] CARDIOLOGY OUTPATIENT PROGRESS NOTE PRIMARY CARE PROVIDER: Aysha Johnson MD REFERRING PROVIDER: Aysha Johnson PROBLEM LIST: Patient Active Problem List Diagnosis Hepatic cirrhosis Added automatically from request for surgery [id number] NAFLD (nonalcoholic fatty liver disease) Mixed incontinence Bladder cancer S/P hysterectomy Vaginal lesion MEDICATIONS: Current Outpatient Medications Medication Sig Dispense Refill deyjqedner-wrfinai-jonyykty (Fiorinal) 50-325-40 mg tablet Take 1 tablet by mouth every 6 hours as needed for Headaches. aspirin EC 81 mg EC (DR) tablet Take 1 tablet by mouth daily. albuteroL 90 mcg/actuation inhaler (HFA) Inhale 2 puffs into the lungs every 6 hours as needed for Wheezing or Shortness of Breath. clobetasoL (Temovate) 0.05 % Cream Apply topically 2 times daily. carvediloL (Coreg) 6.25 mg tablet TAKE 1 TABLET BY MOUTH TWICE DAILY WITH MEALS 180 tablet 1 atorvastatin (Lipitor) 20 mg Tablet Take 20 mg by mouth daily. clonazePAM (KLONOPIN) 0.5 mg Tablet nightly. acetaminophen (TYLENOL) 325 mg tablet Take 650 mg by mouth every 4 hours as needed. isosorbide mononitrate CR (Imdur) 30 mg ER 24 hr tablet Take 30 mg by mouth 2 times daily. clotrimazole (LOTRIMIN) 1 % Cream Apply topically 2 times daily. Jardiance 25 mg tablet Take 1 tablet by mouth daily. nitroGLYcerin (Nitrostat) 0.[address] 0.4 mg under the tongue every 5 minutes asneeded for Chest pain. SITagliptin phosphate (Januvia) 50 mg tablet Take 1 tablet by mouth daily. torsemide (Demadex) 10 mg tablet Take 1 tablet by mouth daily. traZODone (Desyrel) 50 mg tablet Take 50 mg by mouth nightly. amitriptyline (Elavil) 50 mg tablet Take 1 tablet by mouth nightly. lisinopriL (Zestril) 10 mg tablet Take 1 tablet by mouth once a day for kidney protection metoprolol succinate XL (Toprol-XL) 25 mg ER 24 hr tablet Take 37.5 mg by mouth Daily @ 0600. omeprazole (PriLOSEC) [address] capsule TAKE 1 CAPSULE BY MOUTH DAILY 90 capsule 1 Victoza 2-Jl 0.6 mg/0.1 mL (18 mg/3 mL) Pen Injector Inject 1.8 mg as directed. fluticasone propionate (FLONASE) 50 mcg/actuation [place], Suspension 1 spray daily. pramipexole (MIRAPEX) 0.125 [...] tablet Take 1 tablet by mouth daily. FEXOFENADINE HCL (JESÚS ORAL) Take 100 mg by mouth as needed. Reported on 08/21/2016 fish oil-omega-3 fatty acids with vitamin E 1,000 mg Capsule Take 3,000 mg by mouth daily. multivitamin (THERAGRAN) tablet Take 1 tablet by mouth daily. docusate sodium (COLACE) 100 mg capsule Take by mouth. Current Facility-Administered Medications Medication Dose Route Frequency Provider Last Rate Last Admin diatrizoate meglumine (HYPAQUE, CYSTOGRAFIN) urethral solution 300 mL 300 mL Urethral Once PRN Sandra Beltrán MD Subjective: Patient ID: Milka Corbett is a 83 y.o. patient of Aysha Johnson MD. HPI: Came to the clinic complaining of retrosternal chest discomfort which occurs with exertion like walking from the parking lot to the clinic which is relieved with sublingual nitro or with rest. She isto take sublingual nitro about 2-3 times a week. It does not occur at rest. There are no associatedsymptoms of syncope or presyncope, palpitations or CHF manifestations. Her resting electrocardiogram shows no evidence of ischemic changes. She is a scheduled follow-up myocardial perfusion study next week. I am adding Ranexa 500 mg twice a day to her regimen and then we will reevaluate after the study. We also tolerated her symptoms change to come to the emergency department REVIEW OF SYSTEMS: She has a history of nonalcoholic liver cirrhosis with platelet count of 78,000. History of bladdercancer as well Family History: Family History Problem Relation Age [...] on file Social History Narrative Lives in [place], [place] with her of 10 years. She [...] Abdomen: Nondistended. Soft. Nontender. Extremities: No edema. 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 Psych: Appropriate affect. Labs: Lab Results Component Value Date WBC 4.98 12/06/2023 WBC 5.4 08/08/2023 WBC 4.8 12/05/2022 HGB 12.0 12/06/2023 HGB 12.8 08/08/2023 HGB 12.8 12/05/2022 PLATELET 78 (L) 12/06/2023 PLATELET 78 (L) 08/08/2023 PLATELET 91 (L) 12/05/2022 NA 137 12/06/2023 NA 144 08/08/2023 NA 142 12/05/2022 NA 141 06/06/2022 K 4.1 12/06/2023 K 4.1 08/08/2023 K 4.1 12/05/2022 CL 100 12/06/2023 CL 101 08/08/2023 CL 105 12/05/2022 CO2 24 12/06/2023 CO2 28 08/08/2023 CO2 28 12/05/2022 BUN 18 12/06/2023 BUN 19 (H) 08/08/2023 BUN 17 12/05/2022 CREATININE 0.58 (L) 12/06/2023 CREATININE 0.72 08/08/2023 CREATININE 0.71 12/05/2022 CHLPL 103 12/06/2023 CHLPL 178 05/11/2016 HDL 50 12/06/2023 HDL 36 05/11/2016 TRIG 232 05/11/2016 LDLCHOL 111 05/11/2016 Assessment and Plan: #1 Coronary artery disease She is experiencing typical angina. We discussed the alternative therapies including medical therapy versus statins versus surgery. His symptoms are stable so where he is going to add Ranexa 500 mg twice a day to her regimen at the moment while the stress test is performed. 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 All questions were answered and I look forward to the next visit. Yonathan Gibson MD documented in this encounter Plan of Treatment Upcoming Encounters Date Type Department Care Team (Late st Contact Info) Description 04/28/2024 11:00 AM EST [place] [address] Molly Cui [facility] [address] 04/28/2024 2:00 PM EST Office [place] [address] Molly Cui, [facility] [address] Scheduled Orders Name Type Priority Associated Diagnoses Orde r Schedule EKG 12 Lead ECG Routine Coronary artery disease, unspecified vessel or lesion type, unspecified whether angina present, unspecified whether wales or transplanted heart Expected: 12/13/2023, Expires: 06/13/2024 documented as of this encounter Visit Diagnoses Diagnosis Coronary artery disease, unspecified vessel or lesion type, unspecified whether angina present, unspecified whether wales or transplanted heart documented in this encounter Care Teams Non Destructive Testing Technician Relationship Specialty Start Date End Date Aysha Johnson MD [address] [place] [address] PCP - General Family Medicine 12/12/23 documented as of this encounter
--- OUTSIDE RECORDS SUMMARY | 2024-03-23 12:35 | XMS_ITS | Encounter Summary ---
Author Organization Formerly [facility], [facility] Address [facility] [place] [address] Care Team Providers Care Rfid Developer Name Role Phone Aysha Johnson MD Primary Care Provider [phone] Reason for Visit * Reason Comments Advice Only * Consultation (Routine) - Closed Specialty Diagnoses / Procedures Referred By Contruth t Referred To Contact Hematology and Oncology Diagnoses Thrombocytopenia Leland Ortega MD [address] [place] [id number] [facility] [address] [place] [address] Referral ID Status Reason Start Date Expiration Date V isits Requested Visits Authorized [id number] Closed Consult, Test & Treat 12/03/2023 12/02/2024 1 1 Encounter Details Date Type Department Care Team (Late st Contact Info) Description 12/20/2023 1:00 PM EDT Office Visit [place] [phone] Evin Little MD [facility] [place] [address] Thrombocytopenia Social History Tobacco Use Types Packs/Day Years Used Date Smoking Tobacco: Never Smokeless Tobacco: Never Alcohol Use Standard Drinks/Week Comments Yes 0 (1 standard drink = 0.6 oz pur e alcohol) once per year [facility] Inpatient Questions Answer Date Recorded Does Anyone [...] Sign Reading Time Taken Comments Blood Pressure 101/45 12/20/2023 12:56 PM EDT Pulse 80 12/20/2023 12:56 PM EDT Temperature 36 ??C (96.8 ??F) 12/20/2023 12:56 PM EDT Respiratory Rate 17 12/20/2023 12:56 PM EDT Oxygen Saturation 96% 12/20/2023 12:56 PM EDT Inhaled Oxygen Concentration - - Weight 62.4 kg (137 lb 9.1 oz) 12/20/2023 12:56 PM EDT Height 154.9 cm (5' 0.98) 12/20/2023 12:56 PM E DT Body Mass Index 26.01 12/20/2023 12:56 PM EDT documented in this encounter Progress Notes * Evin Little MD - 12/20/2023 1:00 PM EDT Images from the original note were not included. HEMATOLOGY CONSULTATION VISIT NOTE DATE OF VISIT : 12/20/23 REFERRING PROVIDER: Leland Ortega Reason for Visit: Thrombocytopenia HPI Milka Corbett is a 83 y.o. female with PMH of Cirrhosis and Portal hypertension, DM2, HLP, Coronary Artery Disease with ongoing angina, remote history of recurrent bladder cancer, in remission, referred for evaluation of thrombocytopenia. She reports she presents because of concern from others for progressive worsening of her thrombocytopenia. An eConsult had been completed by our group 11/24/2023 with recommendation for no further work-up. Review of the medical record with labs dating back to the show that her platelet count had been in the low 100,000/uL range last decade and during this decade, have been generally in the high double digit range, with recent armaan of 78,000 on both 08/08/23 and 12/06/23. 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 She has small varices which have been monitored by endoscopy. HCC surveillance at that time showed no new lesions with repeat planned later this year (six months from last visit in August) She has been having symptoms of at least progressive angina. She was in the ED 12/05 with symptoms of angina and possible heart failure. She is following with cardiology and was last seen a week ago today. Per her and per what is documented, she is not having symptoms at rest and her symptoms do respond to SL NTG. She underwent myocardial perfusion scan today prior to our visit. She was prescribedRanexa but has not started it. We reviewed her medication list and she reports the newest medication she is taking was carvedilol,prescribed earlier this year. She does not consume alcohol given her BA. She is on no other supplements or OTC agents. She denies any signs or symptoms of bleeding from any source. Other than what is detailed above, ROS is notable for some insomnia (though not clearly endorsing orthopnea, PND, orother HF sx today). Problem List Patient Active Problem List Diagnosis Code Bladder cancer C67.9 S/P hysterectomy Z90.710 Vaginal lesion N89.8 Mixed incontinence N39.46 NAFLD (nonalcoholic fatty liver disease) K76.0 Hepatic cirrhosis K74.60 Surgical Hx Past Surgical History: Procedure Laterality Date APPENDECTOMY 1956 CHOLECYSTECTOMY, LAPAROSCOPIC 1997 CYSTOCELE REPAIR 08/2011 at [facility] GI ENDOSCOPY, BIOPSY N/A 07/14/2015 UPPER GASTROINTESTINAL ENDOSCOPY,WITH BIOPSY SINGLE OR MULTIPLE performed by Leticia Ashraf MD at [facility] ENDOSCOPY PRO UPPER GI ENDOSCOPY, DIAGNOSTIC Bilateral 07/14/2015 EGD, UPPER GI ENDOSCOPY performed by Leticia Ashraf MD at [facility] ENDOSCOPY PRO UPPER GI ENDOSCOPY, DIAGNOSTIC N/A 09/17/2018 EGD, UPPER GI ENDOSCOPY performed by Juliette Chauhan MD at [facility] ENDOSCOPY PRO UPPER GI ENDOSCOPY, DIAGNOSTIC N/A 09/23/2019 EGD, UPPER GI ENDOSCOPY performed by Juliette Chauhan MD at [facility] ENDOSCOPY PRO UPPER GI ENDOSCOPY, DIAGNOSTIC N/A 09/26/2020 EGD, UPPER GI ENDOSCOPY performed by Braulio Bailey MD at [facility] ENDOSCOPY PRO UPPER GI ENDOSCOPY, DIAGNOSTIC N/A 01/31/2022 EGD, UPPER GI ENDOSCOPY performed by Leland Ramos MD at [facility] ENDOSCOPY PRO UPPER GI ENDOSCOPY, DIAGNOSTIC N/A 01/23/2023 EGD, UPPER GI ENDOSCOPY (WRVU 2.09) performed by Juliette Chauhan MD at [facility] ENDOSCOPY RECTOCELE REPAIR 08/2011 at [facility] 1987 for endometriosis TUBAL LIGATION Medications I reviewed the medication list in the eDH with the pt Current Outpatient Medications Medication Instructions acetaminophen (TYLENOL) 650 mg, EVERY 4 HOURS PRN albuteroL 90 mcg/actuation inhaler (HFA) 2 puffs, Inhalation, EVERY 6 HOURS PRN amitriptyline (Elavil) 50 mg tablet 1 tablet, Oral, NIGHTLY aspirin EC 81 mg EC (DR) tablet 1 tablet, Oral, DAILY atorvastatin (LIPITOR) 20 mg, Oral, DAILY jslfdidbhg-gcjigzm-tifufwpl (Fiorinal) 50-325-40 mg tablet 1 tablet, Oral, EVERY 6 HOURS PRN carvediloL (COREG) 6.25 mg, Oral, 2 TIMES DAILY WITH MEALS clobetasoL (Temovate) 0.05 % Cream Topical (Top), 2 TIMES DAILY clonazePAM (KLONOPIN) 0.5 mg Tablet NIGHTLY clotrimazole (LOTRIMIN) 1 % Cream Topical (Top), 2 TIMES DAILY diphenhydrAMINE (BENADRYL) 25 mg, Oral, EVERY 6 HOURS PRN docusate sodium (COLACE) 100 mg capsule Take by mouth. fenofibrate (TRICOR) 145 mg Tablet Reported on 08/21/2016 FEXOFENADINE HCL (JESÚS ORAL) 100 mg, Oral, PRN, Reported on 08/21/2016 fish oil-omega-3 fatty acids with vitamin E 1,000 mg Capsule 3,000 mg, DAILY fluticasone propionate (FLONASE) 50 mcg/actuation [place], Suspension 1 spray, DAILY gabapentin (NEURONTIN) 600 mg, 2 TIMES DAILY isosorbide mononitrate CR (IMDUR) 30 mg, Oral, 2 TIMES DAILY Jardiance 25 mg tablet 1 tablet, Oral, DAILY lisinopriL (Zestril) 10 mg tablet Take 1 tablet by mouth once a day for kidney protection lisinopril-hydrochlorothiazide (PRINZIDE;ZESTORETIC) 10-12.5 mg per tablet 1 tablet, DAILY metFORMIN (GLUCOPHAGE) 1,000 mg, 2 TIMES DAILY WITH MEALS metoprolol succinate XL (TOPROL-XL) 37.5 mg, Oral, DAILY multivitamin (THERAGRAN) tablet 1 tablet, DAILY nitroGLYcerin (NITROSTAT) 0.3 mg, Sublingual, EVERY 5 MIN PRN nystatin (MYCOSTATIN) 100,000 unit/mL Suspension PRN omeprazole (PRILOSEC) 40 mg, Oral, DAILY pramipexole (MIRAPEX) 0.125 mg Tablet Oral, 3 TIMES DAILY ranolazine ER (RANEXA) 500 mg, Oral, 2 TIMES DAILY SITagliptin phosphate (Januvia) 50 mg tablet 1 tablet, Oral, DAILY torsemide (Demadex) 10 mg tablet 1 tablet, Oral, DAILY traZODone (DESYREL) 50 mg, Oral, NIGHTLY triamcinolone (KENALOG) 0.1 % cream PRN Victoza 2-Jl 1.8 mg, Injection Carvediol Allergies/ADR I reviewed the allergies listed in the eDH with the pt Allergies Allergen Reactions Latex, Natural Rubber Itching Dale Inhibitors Other (See Comments) cough Codeine Phosphate Rash and Other (See Comments) Causes anxiety Dulaglutide Nausea And Vomiting Erythromycin Base Nausea And Vomiting Meperidine Hcl Other (See Comments) confusion Simvastatin Nausea Only Atenolol Other (See Comments) Codeine Was afraid of people Hydromorphone (Bulk) Itching Facial itiching Sulfamethoxazole-Trimethoprim Rash Social Hx Social History Socioeconomic History Marital status: Spouse name: None Number of children: None Years of education: None Highest education level: None Occupational History None Tobacco Use Smoking status: Never Smokeless tobacco: Never Vaping Use Vaping status: Never Used Substance and Sexual Activity Alcohol use: Yes Comment: once per year Drug use: No Sexual activity: Not Currently Partners: Male Other Topics Concern None Social History Narrative Lives in [place], [place] with her of 10 years. 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 Social Determinants of Health Financial Resource Strain: Not on file Food Insecurity: Not on file Transportation Needs: Not on file Physical Activity: Not on file Intimate Partner Violence: Not At Risk (12/06/2023) IPV Inpatient Questions Prevent Contact with Others: no Feels Threatened by Someone: no Feels Unsafe at Home: no Physical Signs of Abuse Present: no Housing Stability: Not on file Family Hx Family History Problem Relation Age of Onset Uterine Cancer Maternal Grandmother Ovarian Cancer Daughter 51 Colorectal Cancer Neg Hx Bladder Cancer Brother Breast Cancer Neg Hx Pancreatic Cancer Neg Hx Family hx BA Review of Systems A 10-point review of systems was performed and is unremarkable except as detailed in the HPI/interval history. Physical Exam Vitals Blood pressure 101/45, pulse 80, temperature 36 ??C (96.8 ??F), temperature source Temporal, resp. rate 17, height 154.9 cm (5' 0.98), weight 62.4 kg (137 lb 9.1 oz), SpO2 96%. Body mass index is 26.01 kg/m??. Body surface area is 1.64 meters squared. ECOG - ecog ps: 1 - Symptomatic but completely ambulatory Constitutional: Well-appearing woman in no distress Skin: No bruises or petechiae seen. No rashes or lesions. HEENT: Atraumatic. Anicteric sclera. Conjunctivae are without injection or pallor. Moist Mucosa. Cardiac: Regular, without murmurs, gallops, or rubs. Respiratory: Lungs are clear to posterior auscultation bilaterally. Abdomen: Soft and non-tender. No obvious hepatosplenomegaly. No masses, guarding or rebound. Normalbowel sounds. Extremities: Warm and well-perfused and without lower extremity edema. Neurologic: Fully alert and oriented; no grossly apparent focal deficits. Labs Recent Results (from the past 24 hour(s)) CBC (with Diff) Collection Time: 12/20/23 12:29 PM Result Value Ref Range White Blood Cell 6.24 4.00 - 9.50 x10(3)/mcL Red Blood Cell 4.24 4.00 - 5.21 x10(6)/mcL Hemoglobin 12.7 11.7 - 15.5 g/dL Hematocrit 38.9 35.7 - 45.8 % Mean Cell Volume 91.7 82.6 - 94.4 fL Mean Cell Hemoglobin 30.0 27.1 - 32.0 pg Mean Cell Hemoglobin Concentration 32.6 31.7 - 35.0 g/dL Platelet 86 (L) 145 - 357 x10(3)/mcL Mean Platelet Volume 11.7 7.6 - 12.9 fL RDW Standard Deviation 45.6 37.0 - 46.0 fL RDW coefficient of variation 13.5 11.5 - 14.1 % NRBC% auto 0.0 % NRBC Absolute 0.00 0.00 - 0.00 x10(3)/mcL Neutrophil % 64.6 % Neutrophil Absolute (ANC) - Automated 4.03 1.70 - 6.10 x10(3)/mcL Lymph % 22.4 % Lymph Absolute 1.40 0.90 - 3.20 x10(3)/mcL Monocyte % 11.9 % Monocyte Absolute 0.74 0.30 - 0.90 x10(3)/mcL Eos % 0.6 % Eos Absolute 0.04 0.00 - 0.40 x10(3)/mcL Basophil % 0.2 % Baso Absolute 0.01 0.00 - 0.10 x10(3)/mcL Immature Gran % 0.3 % Immature Gran Absolute 0.02 0.00 - 0.04 x10(3)/mcL Comprehensive metabolic panel Collection Time: 12/20/23 12:29 PM Result Value Ref Range Glucose 116 65 - 199 mg/dL Blood Urea Nitrogen 23 (H) 8 - 18 mg/dL Creatinine 0.88 0.70 - 1.20 mg/dL Sodium 139 135 - 145 mMol/L Potassium 3.9 3.5 - 5.0 mMol/L Chloride 101 98 - 107 mMol/L Carbon Dioxide 27 22 - 31 mMol/L Anion Gap 11 5 - 15 mMol/L Calcium 9.7 8.5 - 10.5 mg/dL Protein, Total 7.0 6.1 - 8.0 g/dL Albumin 4.3 3.2 - 5.2 g/dL Aspartate Aminotransferase 25 <=30 unit/L Alanine Aminotransferase 23 0 - 30 unit/L Alkaline Phosphatase 96 35 - 105 unit/L Bilirubin, Total 0.7 <=1.3 mg/dL Est Glomerular Filtration Rate - Female 66 mL/min/1.73 m?? Fasting Status No Lactate Dehydrogenase Collection Time: 12/20/23 12:29 PM Result Value Ref Range Lactate Dehydrogenase 131 110 - 220 unit/L Myocardial Perfusion Scan 12/20/2023 FINDINGS: No fixed or reversible perfusion defects are present. EGD 01/23/2023 Impression: Esophagogastric landmarks identified. - Small (< 5 mm) esophageal varices. - Normal stomach. - Normal examined duodenum. - No specimens collected. Recommendation: - Return to referring physician. - Consider starting non-selective beta-reva Assessment and Plan # Thrombocytopenia, Chronic, Multifactorial # CAD # BA with compensated cirrhosis We discussed the differential for isolated thrombocytopenia often includes medications, autoimmune conditions, including but not limited to ITP, medications, infections including acute and chronic viral syndromes, nutritional deficiencies, toxins, thrombotic microangiopathies and and acquired bone marrow failure syndromes including but not limited to MDS. Inherited bone marrow failure syndromes are considered but generally more rare. I agree that ongoing known liver disease most likely accounts for her thrombocytosis. We repeated viral studies today for up to date results, and none showed evidence of new/recrudescent infection I cannot fully exclude another concurrent cause (ITP) however, if this were the case, she would be well above threshold for treatment; it would not exchange engineer recommendations for observation. Bone marrow aspiration and biopsy would be considered if there is high suspicion for acquired bone marrow failure syndrome and other work-up has been non-diagnostic, after engaging in shared decision-making discussion. Her other cell lines are remarkably well preserved and MDS presenting as isolated thrombocytopenia in her would seem much less likely. H Pylori infection can in the right clinical context be considered, though this also seems less likely given chronicity and lack of other findings on endoscopy to support. She does not recall ever having been diagnosed or treated with this. Among her medications, the only one listed that I can appreciate as having a [id number] incidence of thrombocytopenia would be aspirin, for which the risks almost certainly outweigh the benefit given her CAD and symptoms. I agree with continuing to observe her platelet count about every 6 months or so or as clinically indicated for any changes. Should she ever require a procedure in the future for which the performinginterventionalist requests a platelet transfusion, I would recommend a post-transfusion check to assess degree of response to see if there is an immune component. I would not recommend any other therapies directed at improving her platelet counts at this time. No further hematology work-up or follow-up is recommended at this time, but we would be happy to see her back in the future should there be any new cytopenias or change on CBC that would prompt concern for a concurrent process. Thank you for inviting us to participate in the care of this patient; please don't hesitate to contact me if you'd like to discuss this patient's situation further. RTC PRN Evin Little MD Section of Hematology [employer] Coachexecutive director [facility] Greater than 45 minutes were spent on date of visit, including non-face to face time. Patient consents to use of [facility] portal for communication of results. This note was completed using [employer] Dictation technology. Please reach out if there are significant errors in fire safety director that require clarification on my part. CC: MD Jordan Milner Michael G documented in this encounter Plan of Treatment Upcoming Encounters Date Type Department Care Team (Late st Contact Info) Description 04/28/2024 11:00 AM [place] [phone] Molly Cui, [facility] [address] GASTROENTEROLOGY [place] [address] 04/28/2024 2:00 PM EST Office [place] [phone] Molly Cui, [facility] [address] GASTROENTER[place] [address] documented as of this encounter Results * HIV Screen, 4th Generation ([facility]/CGP/APD/NLH) (12/20/2023 12:29 PM EDT) HIV Ab/Ag Screen Negative Negative 12/20/2023 1:38 PM EDT [facility] Comment:Low Risk of HIV Infe ction. Blood VENOUS BLOOD SPECIMEN / Unknown Venipuncture / Unknown 12/20/2023 12:29 PM EDT 12/20/2023 12:29 PM EDT Narrative [facility] - 12/20/2023 1:38 PM EDT This [...] performed. Evin Little MD CHEMISTRY ORDERABLE S [facility] [place] [address] * Hepatitis C Antibody (12/20/2023 12:29 PM EDT) Pathologist [facility] Hepatitis C Antibody Negative Negative 12/20/2023 1:38 PM EDT [facility] Blood VENOUS BLOOD SPECIMEN / Unknown Venipuncture / Unknown 12/20/2023 12:29 PM EDT 12/20/2023 12:29 PM EDT Evin Little MD CHEMISTRY ORDERABLE S Performing Organization Address City/[facility]/ZIP Co de Phone Number [facility] [place] [address] * Hepatitis B Surface Antigen (12/20/2023 12:29 PM EDT) [facility] Hepatitis B Surface Antigen Negative Negative 12/20/2023 1:38 PM EDT [facility] Blood VENOUS BLOOD SPECIMEN / Unknown Venipuncture / Unknown 12/20/2023 12:29 PM EDT 12/20/2023 12:29 PM EDT Evin Little MD CHEMISTRY ORDERABLE S Performing Organization Address City/[facility]/ZIP Co de Phone Number [facility] [place] [address] * (ABNORMAL) Kamilla-Llanos Virus Antibodies (12/20/2023 12:29 PM EDT) [facility] EBNA Antibodies Positive(A) Negative 12/24/2023 11:49 AM EDT [facility] EBV (VCA) IgG Ab Positive(A) Negative 12/24/2023 11:49 AM EDT [facility] EBV (VCA) IgM Ab Negative Negative 12/24/2023 11:49 AM EDT [facility] EBV Interp Past EBV infection. 12/24/2023 11:49 AM EDT [facility] Blood VENOUS BLOOD SPECIMEN / Unknown Venipuncture / Unknown 12/20/2023 12:29 PM EDT 12/20/2023 12:29 PM EDT Narrative [facility] - 12/24/2023 11:49 AM EDT In [...] EBV. Evin Little MD IMMUNOLOGY ORDERABL ES Performing Organization Address City/[facility]/ZIP Co de Phone Number [facility] [place] [address] * CMV Antibody, IgM (12/20/2023 12:29 PM EDT) CMV IgM Negative Negative 12/24/2023 11:57 AM EDT [facility] Blood VENOUS BLOOD SPECIMEN / Unknown Venipuncture / Unknown 12/20/2023 12:29 PM EDT 12/20/2023 12:29 PM EDT Evin Little MD IMMUNOLOGY ORDERABL ES [facility] [place] [address] * CMV Antibody, IgG (12/20/2023 12:29 PM EDT) CMV IgG Negative Negative 12/24/2023 11:48 AM EDT [facility] Blood VENOUS BLOOD SPECIMEN / Unknown Venipuncture / Unknown 12/20/2023 12:29 PM EDT 12/20/2023 12:29 PM EDT Evin Little MD IMMUNOLOGY ORDERABL ES [facility] [place] [address] * Hepatitis B Core Antibody, Total (12/20/2023 12:29 PM EDT) Hepatitis B Core Antibody Negative Negative 12/20/2023 1:38 PM EDT [facility] Blood VENOUS BLOOD SPECIMEN / Unknown Venipuncture / Unknown 12/20/2023 12:29 PM EDT 12/20/2023 12:29 PM EDT Evin Little MD CHEMISTRY ORDERABLE S Performing Organization Address [facility] Co de Phone Number [facility] [place] [address] * Hepatitis B Surface Antibody (12/20/2023 12:29 PM EDT) Pathologist [facility] Hepatitis B Surface Antibody, Quantitative <3.5 IU/L 12/20/2023 6:11 PM EDT [facility] Comment: Unvaccinated: < 8.5 IU/L Vaccinated: >= 11.5 IU/L Hepatitis B Surface Antibody Negative 12/20/2023 6:11 PM EDT [facility] Comment: Patient is presumed to be not vaccinated or immune to HBV infection. Expected Results: Vaccinated: Positive Unvaccinated: Negative Blood VENOUS BLOOD SPECIMEN / Unknown Venipuncture / Unknown 12/20/2023 12:29 PM EDT 12/20/2023 12:29 PM EDT Evin Little MD CHEMISTRY ORDERABLE S Performing Organization Address City/[facility]/ZIP Co de Phone Number [facility] [place] [address] * Lactate Dehydrogenase (12/20/2023 12:29 PM EDT) Lactate Dehydrogenase 131 110 - 220 unit/L 12/20/2023 1:08 PM EDT [facility] Blood VENOUS BLOOD SPECIMEN / Unknown Venipuncture / Unknown 12/20/2023 12:29 PM EDT 12/20/2023 12:29 PM EDT Evin Little MD CHEMISTRY ORDERABLE S [facility] [place] [address] * (ABNORMAL) Comprehensive metabolic panel (12/20/2023 12:29 PM EDT) Glucose 116 65 - 199 mg/dL 12/20/2023 1:08 PM EDT [facility] Comment:Glucose Concentratio n >=200 mg/dL plus symptoms is consistent with Diabetes Mellitus. Blood Urea Nitrogen 23(H) 8 - 18 mg/dL 12/20/2023 1:08 PM EDT [facility] Creatinine 0.88 0.70 - 1.20 mg/dL 12/20/2023 1:08 PM EDT [facility] Sodium 139 135 - 145 mMol/L 12/20/2023 1:08 PM EDT [facility] Potassium 3.9 3.5 - 5.0 mMol/L 12/20/2023 1:08 PM EDT [facility] Chloride 101 98 - 107 mMol/L 12/20/2023 1:08 PM EDT [facility] Carbon Dioxide 27 22 - 31 mMol/L 12/20/2023 1:08 PM EDT [facility] Anion Gap 11 5 - 15 mMol/L 12/20/2023 1:08 PM EDT [facility] Calcium 9.7 8.5 - 10.5 mg/dL 12/20/2023 1:08 PM EDT [facility] Protein, Total 7.0 6.1 - 8.0 g/dL 12/20/2023 1:08 PM EDT [facility] Albumin 4.3 3.2 - 5.2 g/dL 12/20/2023 1:08 PM EDT [facility] Aspartate Aminotransferase 25 <=30 unit/L 12/20/2023 1:08 PM EDT [facility] Alanine Aminotransferase 23 0 - 30 unit/L 12/20/2023 1:08 PM EDT [facility] Alkaline Phosphatase 96 35 - 105 unit/L 12/20/2023 1:08 PM EDT [facility] Bilirubin, Total 0.7 <=1.3 mg/dL 12/20/2023 1:08 PM EDT [facility] Est Glomerular Filtration Rate - Female 66 mL/min/1. 73 m?? 12/20/2023 1:08 PM EDT [facility] Comment: This patient's [...] Fasting Status No 12/20/2023 1:08 PM EDT [facility] Blood VENOUS BLOOD SPECIMEN / Unknown Venipuncture / Unknown 12/20/2023 12:29 PM EDT 12/20/2023 12:29 PM EDT Evin Little MD CHEMISTRY ORDERABLE S [facility] [place] [address] * (ABNORMAL) CBC (with Diff) (12/20/2023 12:29 PM EDT) White Blood Cell 6.24 4.00 - 9.50 x10(3)/mcL 12/20/2023 12:51 PM EDT [facility] Red Blood Cell 4.24 4.00 - 5.21 x10(6)/mcL 12/20/2023 12:[address] [facility] Hemoglobin 12.7 11.7 - 15.5 g/dL 12/20/2023 12:[address] [facility] Hematocrit 38.9 35.7 - 45.8 % 12/20/2023 12:[address] [facility] Mean Cell Volume 91.7 82.6 - 94.4 fL 12/20/2023 12:[address] [facility] Mean Cell Hemoglobin 30.0 27.1 - 32.0 pg 12/20/2023 12:[address] [facility] Mean Cell Hemoglobin Concentration 32.6 31.7 - 35.0 g/dL 12/20/2023 12:[address] [facility] Platelet 86(L) 145 - 357 x10(3)/mcL 12/20/2023 12:[address] [facility] Mean Platelet Volume 11.7 7.6 - 12.9 fL 12/20/2023 12:[address] [facility] RDW Standard Deviation 45.6 37.0 - 46.0 fL 12/20/2023 12:[address] [facility] RDW coefficient of variation 13.5 11.5 - 14.1 % 12/20/2023 12:[address] [facility] NRBC% auto 0.0 % 12/20/2023 12:[address] [facility] NRBC Absolute 0.00 0.00 - 0.00 x10(3)/mcL 12/20/2023 12:[address] [facility] [facility] Neutrophil % 64.6 % 12/20/2023 12:[address] [facility] Neutrophil Absolute (ANC) - Automated 4.03 1.70 - 6.10 x10(3)/mcL 12/20/2023 12:[address] [facility] Lymph % 22.4 % 12/20/2023 12:[address] [facility] Lymph Absolute 1.40 0.90 - 3.20 x10(3)/[facility] 12/20/2023 12:51 PM EDT [facility] Monocyte % 11.9 % 12/20/2023 12:51 PM EDT [facility] Monocyte Absolute 0.74 0.30 - 0.90 x10(3)/[facility] 12/20/2023 12:51 PM EDT [facility] Eos % 0.6 % 12/20/2023 12:51 PM EDT [facility] Eos Absolute 0.04 0.00 - 0.40 x10(3)/[facility] 12/20/2023 12:51 PM EDT [facility] Basophil % 0.2 % 12/20/2023 12:51 PM EDT [facility] Baso Absolute 0.01 0.00 - 0.10 x10(3)/[facility] 12/20/2023 12:51 PM EDT [facility] Immature Gran % 0.3 % 12:51 PM EDT [facility] Immature Gran Absolute 0.02 0.00 - 0.04 x10(3)/[facility] 12/20/2023 12:51 PM EDT [facility] Blood VENOUS BLOOD SPECIMEN / Unknown Venipuncture / Unknown 12/20/2023 12:29 PM EDT 12/20/2023 12:29 PM EDT Evin Little MD HEMATOLOGY ORDERABL ES [facility] [place] [address] documented in this encounter Visit Diagnoses Diagnosis Thrombocytopenia Thrombocytopenia, unspecified documented in this encounter Care Teams Rfid Developer Relationship Specialty Start Date End Date Aysha Johnson MD [address] [place] [address] PCP - General Family Medicine 12/12/23 documented as of this encounter
--- OUTSIDE RECORDS SUMMARY | 2024-03-23 12:35 | XMS_ITS | Encounter Summary ---
Author Organization [facility] [place] [address] Care Team Providers Care Technical Sales Consultant Name Role Phone Aysha Johnson MD Primary Care Provider [phone] Encounter Details Date Type Department Care Team (Latest Contact Info) Description 12/23/2023 10:30 AM EDT TH Visit (TeleHealth) [place] [address] Molly Cui ENTERTAINMENT PRODUCTION PROFESSIONAL [facility] [place] [address] JIMENEZ (dyspnea on exertion); Hepatic cirrhosis, unspecified hepatic cirrhosis type, unspecified whether ascites present Social History Tobacco Use Types Packs/Day Years Used Date Smoking Tobacco: Never Smokeless Tobacco: Never Alcohol Use Standard Drinks/Week Comments Yes 0 (1 standard drink = 0.6 oz pur e alcohol) once per year [facility] Inpatient Questions Answer Date Recorded [...] Progress Notes * Molly Cui APRN - 12/23/2023 10:30 AM EDT Hepatology Follow Up Note Patient: Milka Corbett Gender: female : 1940 Provider: Molly Cui NP Referring Physician: Aysha Johnson MD HISTORY OF PRESENT ILLNESS Milka Corbett is a 83 y.o. year old female With BA Cirrhosis who returns today for follow up via telephone She presented to the ED at the end of November with weight gain, orthopnea, and fluid retention, thought to be related to her heart. She has seen cardiology and had a stress test completed last week, has follow up with cardiology later this week. Cardioligist prescribed Ranolizine but got very nauseus, stopped medication and symptoms resolved. Took it for 1 day. She was previously seeing Dr. Ortega in [place] - was seeing him in [place], but he was in process of moving so started seeing cards at [facility]. He thought thtere was narrowing in aorta valve (? Per patient) Taking Metoprolol 50mg once daily and also taking Carvedilol 6.25mg BID. PAST MEDICAL/SURGICAL HISTORY 1. Cirrhosis due to [...] Outpatient Medications Marked as Taking for the 12/23/23 encounter (Appointment) with Molly Cui APRN Medication Sig Dispense Refill isosorbide mononitrate CR (Imdur) 30 mg ER 24 hr tablet Take 30 mg by mouth 2 times daily. torsemide (Demadex) 10 mg [...] Pen Injector Inject 1.8 mg as directed. fenofibrate (TRICOR) 145 mg Tablet Reported on 08/21/2016 Current Facility-Administered Medications for the 12/23/23 encounter (Appointment) with Molly Cui APRN Medication [...] Hydromorphone (Bulk) Itching Facial itiching Sulfamethoxazole-Trimethoprim Rash SOCIAL HISTORY Lives with her [...] age 30 of acute hepatitis PHYSICAL EXAM Minimal exam done over telephone, no vitals. Lab Results Component Value Date WBC 6.24 12/20/2023 HGB 12.7 12/20/2023 HCT 38.9 12/20/2023 MCV 91.7 12/20/2023 PLATELET 86 (L) 12/20/2023 No results for input(s): INR in the last 168 hours. Chemistry Component Value Date/Time NA 139 12/20/2023 1229 NA 144 08/08/2023 1219 K 3.9 12/20/2023 1229 K 4.1 08/08/2023 1219 CL 101 12/20/2023 1229 CL 101 08/08/2023 1219 CO2 27 12/20/2023 1229 CO2 28 08/08/2023 1219 BUN 23 (H) 12/20/2023 1229 BUN 19 (H) 08/08/2023 1219 CREATININE 0.88 12/20/2023 1229 CREATININE 0.72 08/08/2023 1219 Component Value Date/Time CALCIUM 9.7 12/20/2023 1229 CALCIUM 10.0 08/08/2023 1219 ALKPHOS 96 12/20/2023 1229 ALKPHOS 121 (H) 08/08/2023 1219 AST 25 12/20/2023 1229 AST 34 (H) 08/08/2023 1219 ALT 23 12/20/2023 1229 ALT 33 (H) 08/08/2023 1219 BILITOT 0.7 12/20/2023 1229 BILITOT 0.5 08/08/2023 1219 MELD 3.0: 8 [...] 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 She has recently had more symptoms of fluid retention and JIMENEZ, though to be cardiac in nature. I do not see any signs of liver decompensation - her liver synthetic function is normal and she has no signs of ascites on her last ultrasound. At our last visit we had discussed switching her Metoprolol to Carvedilol to get the additional benefit of prevention of variceal bleeding with the Carvedilol, and it appears she has started the Carvedilol but never stopped Metoprolol, and I would recommend that she not continue on both of these medications so discussed stopping Metoprolol. 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 This has also been stable. 1. Cirrhosis. Diagnosed by fibroscan. Well compensated. MELD 7. 2. BA. Her metabolic risks include diabetes, hypertension, elevated cholesterol, overweight. She has been working on her weight and blood sugar and these have both improved. Continue Victoza 3. Portal hypertension. She has small varices which we have been monitoring with repeat upper endoscopy. If she continues on Carvedilol she does not need a repeat EGD. Discussed stopping Metoprolol given she is now taking Coreg. 4. HCC surveillance. US in August with no new lesions. Can repeat US in 6 months which is scheduled 02/06/24 5. Hepatic encephalopathy. No symptoms today. 6. Lung nodule. Followed by PCP, we did not discuss today. 7. Preventative health. She should have annual flu vaccine. 8. 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 Continue Omeprazole. Plan: - Continue Carvedilol 6.25mg twice daily, stop Metoprolol - Follow up with cardiology for JIMENEZ, chest pain. - I do not see any signs of hepatic decompensation, will continue to monitor and will recheck labs and US on 02/06/24 as scheduled. Molly Cui APRN Section of [place]astroenter[place] [address] Copy: Aysha Johnson MD [address] / [place] [address] Time spent reviewing records prior to this [...] 04/28/2024 11:00 AM [place] [address] Molly Cui APRN [facility] [place] [address] 04/28/2024 2:00 PM EST Office [place] [phone] Molly Cui ENTERTAINMENT PRODUCTION PROFESSIONAL [facility] [place] [address] documented as of this encounter Visit Diagnoses Diagnosis JIMENEZ (dyspnea on exertion) Other dyspnea and respiratory abnormality Hepatic cirrhosis, unspecified hepatic cirrhosis type, unspecified whether ascites present documented in this encounter Care Teams Technical Sales Consultant Relationship Specialty Start Date End Date Aysha Johnson MD [address] [place] [address] PCP - General Family Medicine 12/12/23 documented as of this encounter
--- OUTSIDE RECORDS SUMMARY | 2024-03-23 12:35 | XMS_ITS | Encounter Summary ---
Author Organization [facility] Address [facility] [address] Care Team Providers Care Licensed Nuclear Operator Name Role Phone Aysha Johnson MD Primary Care Provider [phone] Reason for Visit * Diagnostic Test (Routine) - Closed Specialty Diagnoses / Procedures Referred By Contac t Referred To Contact Radiology Diagnoses Chest pain on breathing Procedures NM Pharmacologic Stress CT Component NM Exercise Stress CT Component NM Pharmacologic Stress and Rest Myocardial Perfusion [facility] Jac Cheng MD [facility] [place] [address] [facility] Nuclear Med [address] [place] [phone] Referral ID Status Reason Start Date Expiration Date V isits Requested Visits Authorized [id number] Closed Specialty Service Requested 12/06/2023 06/05/2025 1 1 Encounter Details Date Type Department Care Team (Latest Contact Info) Description 12/20/2023 9:44 AM EDT - 12/20/2023 12:14 PM EDT Hospital Encounter [place] [address] Rebeka Orosco MD [facility] [place] [address] Chest pain on breathing Discharge [...] type, unspecified whether angina present, unspecified whether duckwater or transplanted heart Place 1 tablet under the tongue every 5 minutes as needed for Chest pain. 25 tablet 12 12/13/2023 ranolazine ER (Ranexa) 500 mg ER 12 hr tabletIndications:Luis nary artery disease, unspecified vessel or lesion type, unspecified whether angina present, unspecified whether duckwater or transplanted heart Take 1 tablet by mouth 2 times daily. 60 tablet 12/13/2023 isosorbide mononitrate CR (Imdur) 30 mg ER 24 hr tablet Take 30 mg by mouth 2 times daily. [id number] feine (Fiorinal) 50-325-40 mg tablet Take 1 [...] directed. 05/02/2020 fluticasone propionate (FLONASE) 50 mcg/actuation [place], Suspension 1 spray daily. pramipexole (MIRAPEX) 0.125 [...] 04/28/2024 11:00 AM EST [place] [phone] Molly Cui, [facility] [place] [address] 04/28/2024 2:00 PM EST Office [place] [phone] Molly Cui, [facility] [place] [address] documented as of this encounter Procedures Procedure Name Priority Date/Time Associated Diagnosis Comments NM PHARMACOLOGIC STRESS CT COMPONENT Routine 12/20/2023 11:45 AM EDT Chest pain on breathing documented in this encounter Results * NM Pharmacologic Stress CT Component (12/20/2023 11:45 AM EDT) WORKSTATION ID [id number] [facility] Anatomical Region Laterality Modality Nuclear Medicine Impressions [...] who have questions please contact the health critical care physician that requested your imaging first. ? Narrative [...] patients who have questions please contactthe health critical care physician that requested your imaging first. Rebeka Orosco [...] mCi documented in this encounter Care Teams Licensed Nuclear Operator Relationship Specialty Start Date End Date Aysha Johnson MD [address] [place] [address] PCP - General Family Medicine 12/12/23 documented as of this encounter
--- OUTSIDE RECORDS SUMMARY | 2024-03-23 12:36 | XMS_ITS | Encounter Summary ---
Author Organization [facility] [place] [address] Care Team Providers Care Eligibility Worker Name Role Phone Salome Mcarthur APRN Primary Care Provider [phone] Encounter Details Date Type Department Care Team (Latest Contact Info) Description 06/01/2021 10:00 AM EST Laboratory Appointment Lab [address] [place] [address] Hepatic cirrhosis, unspecified hepatic cirrhosis type, unspecified [...] 04/28/2024 11:00 AM EST [place] [address] Molly Cui [facility] [place] [address] 04/28/2024 2:00 PM EST Office [place] [address] Molly Cui [facility] [place] [address] documented as of this encounter [...] 10:31 AM EST) Neutrophil % 61.2 % [facility] Neutrophil Absolute 4.16 1.70 - 6.10 x10(3)/[facility] Lymph % 23.8 % [facility] Lymphocytes Abs 1.6 0.9 - 3.2 x10(3)/[facility] Monocyte % 12.5 % [facility] Monocyte Abs 0.8 0.3 - 0.9 x10(3)/[facility] Eos % 1.8 % [facility] Eosinophils Abs 0.1 0.0 - 0.4 x10(3)/[facility] Basophil % 0.4 % [facility] Baso Absolute 0.0 0.0 - 0.1 x10(3)/[facility] Immature Gran % 0.30 % [facility] Comment: Immature granulocytes(IG's)percentage and absolute count will include metamyelocytes, myelocytes, and promyelocytes. Blood smears from CBCs yielding IG's will be scanned manually for concordance. If this scan disagrees with the automated IG or if promyelocytes are noted, a manual differential will be performed. Immature Gran Absolute 0.02 0.00 - 0.04 x10(3)/[facility] Blood 06/01/2021 10:3 1 AM EST 06/01/2021 10:41 AM EST Narrative Resulting Agency Comment Spec In Lab Molly Cui RAILROAD DETECTIVE HEMATOLOGY ORDERAB LES [facility] [place] [address] * (ABNORMAL) Hemogram (06/01/2021 10:31 AM EST) White Blood Cell 6.8 4.0 - 9.5 x10(3)/[facility] Red Blood Cell 4.20 4.00 - 5.21 x10(6)/[facility] Hemoglobin 12.8 11.7 - 15.5 g/dL [facility] Hematocrit 38.6 35.7 - 45.8 % [facility] Mean Cell Volume 91.9 82.6 - 94.4 fL [facility] Mean Cell Hemoglobin 30.5 27.1 - 32.0 pg [facility] Mean Cell Hemoglobin Concentration 33.2 31.7 - 35.0 g/dL [facility] Platelet 93(L) 145 - 357 x10(3)/[facility] RDW Standard Deviation 44.9 37.0 - 46.0 fL [facility] RDW coefficient of variation 13.2 11.5 - 14.1 % [facility] Mean Platelet Volume 11.9 7.6 - 12.9 fL [facility] NRBC% auto 0.0 % [facility] NRBC Absolute 0.000 0.000 - 0.000 x10(3)/[facility] Blood 06/01/2021 10:3 1 AM EST 06/01/2021 10:41 AM EST Narrative Resulting Agency Comment Spec In Lab Molly Cui LORETO HEMATOLOGY ORDERAB LES [facility] [address] * (ABNORMAL) Comprehensive metabolic panel (non-fasting) (06/01/2021 10:31 AM EST) Glucose 187 65 - 199 mg/dL [facility] Comment:Diabetes: >=200 mg/d L plus symptoms Blood Urea Nitrogen 16 8 - 18 mg/dL [facility] Creatinine 0.61(L) 0.70 - 1.20 mg/dL [facility] Sodium 139 135 - 145 mmol/L [facility] Potassium 4.3 3.5 - 5.0 mmol/L [facility] Comment: Please note: ??Patients with WBC >100,000 may have falsely elevated Potassium levels. ??For accurate Potassium quantification in these patients send serum separator tube (gold top) for subsequent determinations. ??Contact the Clinical Chemistry Laboratory if there are any questions. Chloride 102 98 - 107 mmol/L [facility] Carbon Dioxide 25 22 - 31 mmol/L [facility] Anion Gap 12 5 - 15 mmol/L [facility] Calcium 10.0 8.5 - 10.5 mg/dL [facility] Protein, Total 6.8 6.1 - 8.0 g/dL [facility] Albumin 4.3 3.2 - 5.2 g/dL [facility] Aspartate Aminotransferase 45(H) 0 - 30 unit/L [facility] Alanine Aminotransferase 60(H) 0 - 30 unit/L [facility] Alkaline Phosphatase 95 35 - 105 unit/L [facility] Bilirubin, Total 0.7 0.2 - 1.3 mg/dL [facility] Est Glomerular Filtration Rate 86 >=60 mL/min/1. 73 m?? [facility] Comment: This patient? s [...] APRN CHEMISTRY ORDERABL ES Performing Organization Address [facility] Phone Number [facility] [address] * Prothrombin Time (06/01/2021 10:31 AM EST) Prothrombin Time 12.1 9.4 - 12.5 sec [facility] International Normalization Ratio 1.1 [facility] Comment: An INR <2.0 [...] APRN HEMATOLOGY ORDERAB LES Performing Organization Address [facility] Co ms Phone Number [facility] [place] [address] documented in this encounter Visit Diagnoses Diagnosis Hepatic cirrhosis, unspecified hepatic cirrhosis type, unspecified whether ascites present documented in this encounter Care Teams Eligibility Worker Relationship Specialty Start Date End Date Salome Mcarthur RAILROAD DETECTIVE [address] [place] [address] PCP - General Family Medicine 05/30/15 12/11/23 documented as of this encounter
--- OUTSIDE RECORDS SUMMARY | 2024-03-23 12:36 | XMS_ITS | Encounter Summary ---
Author Organization [facility] [place] [address] Care Team Providers Care Environmental Construction Engineer Name Role Phone Salome Mcarthur APRN Primary Care Provider [phone] Encounter Details Date Type Department Care Team (Late st Contact Info) Description 11/29/2021 1:00 PM EDT Office Visit [place] [address] Molly Wallis APRN [facility] [place] [address] Hepatic cirrhosis, unspecified hepatic cirrhosis type, unspecified [...] Progress Notes * Molly Wallis APRN - 11/29/2021 1:00 PM EDT Hepatology [...] PT and they did 2 visits with [place] Halpike procedure and her vertigo is now [...] daily. ??? fluticasone propionate (FLONASE) 50 mcg/actuation [place], Suspension 1 spray daily. ??? pramipexole (MIRAPEX) [...] extrahepatic biliary ductal dilation. 3. No ascites. ? ASSESSMENT/PLAN Milka Mendieta is a 81 y.o. [...] of Gastroenterology [place] [address] Copy: Salome Mcarthur APRN [address] / [place] [address] Time spent reviewing records prior to this [...] 04/28/2024 11:00 AM EST Appointment Ultrasound at [place] [phone] Molly Wallis APRN [facility] [place] [address] 04/28/2024 2:00 PM EST Office Visit [place] [phone] Molly Wallis SENIOR AUDITOR [facility] [place] [address] Scheduled Orders Name Type Priority Associated Diagnoses Orde r Schedule ENDOSCOPY CASE REQUEST: EGD, UPPER GI ENDOSCOPY Procedures Routine Hepatic cirrhosis, unspecified hepatic cirrhosis type, unspecified whether ascites present Ordered: 11/29/2021 documented as of this encounter Results * (ABNORMAL) Prothrombin Time (06/06/2022 12:46 PM EST) Prothrombin Time 12.9(H) 9.4 - 12.5 sec [facility] International Normalization Ratio 1.1 [facility] Comment: An INR <2.0 indicates adequate [...] Agency Comment Spec In Lab Molly Wallis SENIOR AUDITOR HEMATOLOGY ORDERAB LES [facility] [place] [address] * (ABNORMAL) Comprehensive metabolic panel (non-fasting) (06/06/2022 12:46 PM EST) Glucose 107 65 - 199 mg/dL [facility] Comment:Diabetes: >=200 mg/d L plus symptoms Blood Urea Nitrogen 15 8 - 18 mg/dL [facility] Creatinine 0.66(L) 0.70 - 1.20 mg/dL [facility] Sodium 141 135 - 145 mmol/L [facility] Potassium 4.2 3.5 - 5.0 mmol/L [facility] Comment: Please note: ??Patients with WBC >100,000 may have falsely elevated Potassium levels. ??For accurate Potassium quantification in these patients send serum separator tube (gold top) for subsequent determinations. ??Contact the Clinical Chemistry Laboratory if there are any questions. Chloride 104 98 - 107 mmol/L [facility] Carbon Dioxide 27 22 - 31 mmol/L [facility] Anion Gap 10 5 - 15 mmol/L [facility] Calcium 10.4 8.5 - 10.5 mg/dL [facility] Protein, Total 6.9 6.1 - 8.0 g/dL [facility] Albumin 4.3 3.2 - 5.2 g/dL [facility] Aspartate Aminotransferase 33(H) 0 - 30 unit/L [facility] Alanine Aminotransferase 34(H) 0 - 30 unit/L [facility] Alkaline Phosphatase 98 35 - 105 unit/L [facility] Bilirubin, Total 0.6 0.2 - 1.3 mg/dL [facility] Est Glomerular Filtration Rate 89 >=60 mL/min/1. 73 m?? [facility] Comment: This patient's estimated GFR was [...] Lab Molly Wallis APRN CHEMISTRY ORDERABL ES Performing Organization Address City/State/[facility] Co de Phone Number [place] [address] * US Abdomen Limited Hepatology Protocol (06/06/2022 [...] who have questions, please contact the health progressive care nurse that requested your imaging first. ? Avila Keith, Staff Physician Electronically Signed Final Report ?? 06/06/2022 11:54 am Narrative 06/06/2022 11:55 AM EST Abdominal ? (Signed Final 06/06/2022 11:54 am) PATIENT INFO: ID #: ? [id number] ?: ??[birth year] (81 yrs)(F) Name: ? MILKA MENDIETA ?Visit Date: 06/06/2022 11:20 am PERFORMED BY: Attending: ?Avila Keith MD Performed By: ? Sosa Joshi RDMS Referred By: ?MOLLY WALLIS Secondary Phy.: ?? MOLLY WALLIS SENIOR AUDITOR Location: ? [place] [facility] Protocol - Abdominal ?22010 Limited Survey Single Organ or Quadrant - [id number] INDICATIONS: cirrhosis, screen for hcc ------ LIVER: [...] 06/06/2022 11:54 am) PATIENT INFO: ID #: [id number] : [birth year] (81 yrs)(F) Name: MILKA MENDIETA Visit Date: 06/06/2022 11:20 am PERFORMED BY: Attending: Avila Keith MD Performed By: Sosa Joshi RDMS Referred By: MOLLY WALLIS Secondary Phy.: MOLLY WALLIS APRN Location: [place] [facility]ICE[facility]S) [facility] Hep[facility] Protocol - Abdominal 35118 Limited Survey Single Organ or Quadrant - [id number] INDICATIONS: cirrhosis, screen for hcc ------ LIVER: [...] who have questions, please contact the health progressive care nurse that requested your imaging first. Avila Keith, Staff Physician Electronically Signed Final Report 06/06/2022 11:54 am Molly Wallis APRN IMG GEN ORDERAB LES documented in this encounter Visit Diagnoses Diagnosis Hepatic cirrhosis, unspecified hepatic cirrhosis type, unspecified whether ascites present Hepatic cirrhosis, unspecified hepatic cirrhosis type, unspecified whether ascites present documented in this encounter Care Teams Environmental Construction Engineer Relationship Specialty Start Date End Date Salome Mcarthur APRN [address] [place] [address] PCP - General Family Medicine 05/30/15 12/11/23 documented as of this encounter
--- OUTSIDE RECORDS SUMMARY | 2024-03-23 12:36 | XMS_ITS | Encounter Summary ---
Author Organization [place] [address] Care Team Providers Care Internet Architect Name Role Phone Salome Mcarthur APRN Primary Care Provider [phone] Encounter Details Date Type Department Care Team [...] 04/28/2024 11:00 AM EST [place] [address] Molly Cui [employer] [facility] [address] 04/28/2024 2:00 PM EST Office [place] [phone] Molly Cui [facility] [place] [address] documented as of this encounter Visit Diagnoses Not on filedocumented in this encounter Care Teams Internet Architect Relationship Specialty Start Date End Date Salome Mcarthur APRN [address] [address] PCP - General Family Medicine 05/30/15 12/11/23 documented as of this encounter
--- OUTSIDE RECORDS SUMMARY | 2024-03-23 12:36 | XMS_ITS | Encounter Summary ---
Author Organization [facility] [place] [address] Care Team Providers Care Corporate Communications Associate Name Role Phone Salome Mcarthur APRN Primary Care Provider [phone] Encounter Details Date Type Department Care Team [...] 04/28/2024 11:00 AM EST Appointment [place] [address] Molly Cui [facility] [facility] [place] [address] 04/28/2024 2:00 PM EST Office Visit [place] [address] Molly Cui [facility] [address] documented as of this encounter Visit Diagnoses Not on filedocumented in this encounter Care Teams Corporate Communications Associate Relationship Specialty Start Date End Date Salome Mcarthur APRN [address] [address] PCP - General Family Medicine 05/30/15 12/11/23 documented as of this encounter
--- OUTSIDE RECORDS SUMMARY | 2024-03-23 12:36 | XMS_ITS | Encounter Summary ---
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 Procedures PRO UPPER GI ENDOSCOPY, DIAGNOSTIC PRO ANESTH, UGI ENDOSCOPY NOS EGD, UPPER GI ENDOSCOPY (WRVU 2.09) Juliette Chauhan MD [facility] [place] [address] [facility] Referral ID Status Reason Start Date Expiration Date Visits Re quested Visits Authorized [id number] 1 1 Encounter Details Date Type Department Care Team (Late st Contact Info) Description 01/23/2023 11:15 AM EDT - 01/23/2023 11:45 AM EDT [place] [address] Juliette Chauhan MD [facility] [place] [address] EGD, UPPER GI ENDOSCOPY (WRVU 2.09) Social [...] encounter Discharge Instructions * Discharge Instructions* Carmen Salmon, RN - 01/23/2023 12:51 PM EDT Upper [...] the day after the procedure, use an nqov-obs-adrujvv spray to numb your throat. Sucking on [...] occurs, please contact your Doctor. Please call [phone] before 8pm Mon-Fri with problems, questions or concerns. If you call after 8pm or on weekends, call the Hospital at [phone] and ask to speak to the Manager Of Operations education department registrar and the communications operator will contact that person for you. When should you call for help? Call [phone] anytime you think you may need emergency [...] any problems. Where can you learn more? [facility] View your After Visit Summary and more online at [email or web address] If you would like to provide feedback about your hospital experience, please call the Office of Patient and Family Relations at . If you have received this After Visit Summary in error, please immediately return it in person to the department, or notify the [facility] Privacy Office by calling toll free at between the hours of 8AM and 5PM to arrange for our retrieval of the documents at no cost to you. Content Version: 12.2 ?? [id number] [employer]. Care instructions adapted under license by [facility]. If you have questions about a medical condition or this instruction, always ask your healthcare professional. [employer] disclaims any warranty or liability for your [...] directed. 05/02/2020 fluticasone propionate (FLONASE) 50 mcg/actuation [place], Suspension 1 spray daily. pramipexole (MIRAPEX) 0.125 [...] DAY FOR NEXT 14 DAYS 08/16/2021 08/08/2023 clonazePAM (KLONOPIN) 0.5 mg Tablet nightly. 02/21/2015 12/20/2023 red yeast rice 600 mg Tab Take 600 mg by mouth 2 times daily. 08/08/2023 amitriptyline (ELAVIL) 50 mg tablet Take 25 mg by mouth nightly. 12/06/2023 documented as of this encounter H&P Notes [...] 04/28/2024 11:00 AM [place] [address] Molly Cui APRN [facility] [address] 04/28/2024 2:00 PM EST Office Visit Gastroenterology at [facility] [place] [address] Molly Cui APRN [facility] [place] [address] documented as of this encounter Procedures Procedure Name Priority Date/Time Associated Diagnosis Comments Upper GI Endoscopy, Diagnostic (07405) 01/23/2023 12:23 PM EDT Hepatic cirrhosis, unspecified hepatic cirrhosis type, unspecified whether ascites present UPPER GI ENDOSCOPY Routine 01/23/2023 12 :11 PM EDT documented in this encounter Results * UPPER GI ENDOSCOPY (01/23/2023 12:11 PM EDT) [facility] Signature UPPER GI ENDOSCOPY [facility] Endoscopy Procedure Date: 01/23/2023 12:11 PM ? Patient Name: Milka Corbett ? N: [id number] ? Date of : 1940 ? Age: 82 ? Order #: [id number] ? Instrument Name: [id number] ? Procedure: ? Upper GI endoscopy Indications: ? Follow-up of esophageal varices Providers: ? Juliette Chauhan MD, Yaw Garcia ? TRISHA Boyd, Kalpana Perez MD: ?Sophia [...] 01/23/2023 12:1 1 PM EDT Salome Mcarthur MERCHANDISING TEAM LEAD GENERAL SURGICAL OR DERABLES [employer]OVATION documented in [...] 1220 (New Bag - Prov ider: Jessika Anand RN) PRN Medication Order 01/21/2023 01/22/2023 01/23/2023 fentaNYL (pf) (50 mcg/mL) multi-dose injection (CANCELED) PRN, Starting on Sat01/23/23 at 1124, Until Sat01/23/23 at 1549, Intra-Operative (Intra-Procedure), Routine 1124 (Canceled Entry - Provider: Kalpana Swan RN)1125 (Given - Provider: Kalpana Swan RN)1128 (Given - Provider: Kalpana Swan RN) midazolam (pf) (Versed) (1 mg/mL) multi-dose injection (CANCELED) PRN, Starting on Sat01/23/23 at 1224, Until Sat01/23/23 at 1549, Intra-Operative (Intra-Procedure), Routine 1224 (Given - Provid er: Kalpana Swan RN)1227 (Given - Provider: Kalpana Swan RN) documented in this encounter Care Teams Sports Marketing Internship Relationship Specialty Start Date End Date Salome Mcarthur, MERCHANDISING TEAM LEAD [address] [place] [address] PCP - General Family Medicine 05/30/15 12/11/23 documented as of this encounter
--- OUTSIDE RECORDS SUMMARY | 2024-03-23 12:36 | XMS_ITS | Encounter Summary ---
Author Organization [facility] [place] [address] Care Team Providers Care E Marketing Specialist Name Role Phone Salome Mcarthur APRN Primary Care Provider [phone] Encounter Details Date Type Department Care Team (Latest Contact Info) Description 06/06/2022 12:30 PM EST Laboratory Appointment Lab [address] [place] [address] Hepatic cirrhosis, unspecified hepatic cirrhosis [...] 04/28/2024 11:00 AM [place] [address] Molly Cui [facility] [place] [address] 04/28/2024 2:00 PM EST Office [place] [address] Molly Cui [facility] [place] [address] documented as of this encounter [...] 12:46 PM EST) Neutrophil % 55.9 % [facility] Neutrophil Absolute 3.25 1.70 - 6.10 x10(3)/[facility] LAB[facility] Lymph % 30.1 % [facility] Lymphocytes Abs 1.8 0.9 - 3.2 x10(3)/[facility] Monocyte % 11.4 % [facility] Monocyte Abs 0.7 0.3 - 0.9 x10(3)/[facility] LAB[facility] Eos % 1.9 % [facility] Eosinophils Abs 0.1 0.0 - 0.4 x10(3)/[facility] Basophil % 0.5 % [facility] Baso Absolute 0.0 0.0 - 0.1 x10(3)/[facility] LAB[facility] Immature Gran % 0.20 % [facility] Comment: Immature granulocytes(IG's)percentage and absolute count will include metamyelocytes, myelocytes, and promyelocytes. Blood smears from CBCs yielding IG's will be scanned manually for concordance. If this scan disagrees with the automated IG or if promyelocytes are noted, a manual differential will be performed. Immature Gran Absolute 0.01 0.00 - 0.04 x10(3)/[facility] Blood 06/06/2022 12:4 6 PM EST 06/06/2022 12:49 PM EST Narrative Resulting Agency Comment Spec In Lab Molly Cui OBSTETRICAL TECH HEMATOLOGY ORDERAB LES Performing Organization Address City/[facility] Co de Phone Number [facility] [place] [address] * (ABNORMAL) Hemogram (06/06/2022 12:46 PM EST) White Blood Cell 5.8 4.0 - 9.5 x10(3)/[facility] LAB[facility] Red Blood Cell 4.22 4.00 - 5.21 x10(6)/[facility] Hemoglobin 12.7 11.7 - 15.5 g/dL [facility] Hematocrit 38.7 35.7 - 45.8 % [facility] Mean Cell Volume 91.7 82.6 - 94.4 fL [facility] Mean Cell Hemoglobin 30.1 27.1 - 32.0 pg [facility] Mean Cell Hemoglobin Concentration 32.8 31.7 - 35.0 g/dL [facility] Platelet 85(L) 145 - 357 x10(3)/[facility] RDW Standard Deviation 45.1 37.0 - 46.0 fL [facility] RDW coefficient of variation 13.3 11.5 - 14.1 % [facility] Mean Platelet Volume 11.2 7.6 - 12.9 fL [facility] NRBC% auto 0.0 % [facility] NRBC Absolute 0.000 0.000 - 0.000 x10(3)/[facility] Blood 06/06/2022 12:4 6 PM EST 06/06/2022 12:49 PM EST Narrative Resulting Agency Comment Spec In Lab Molly A [place] OBSTETRICAL TECH HEMATOLOGY ORDERAB LES Performing Organization Address City/[facility]/ZIP Co de Phone Number [facility] [place] [address] * (ABNORMAL) Comprehensive metabolic panel (non-fasting) (06/06/2022 12:46 PM EST) Glucose 107 65 - 199 mg/dL [facility] Comment:Diabetes: >=200 mg/d L plus symptoms Blood Urea Nitrogen 15 8 - 18 mg/dL [facility] Creatinine 0.66(L) 0.70 - 1.20 mg/dL [facility] Sodium 141 135 - 145 mmol/L [facility] Potassium 4.2 3.5 - 5.0 mmol/L [facility] Comment: Please note: ??Patients with WBC >100,000 may have falsely elevated Potassium levels. ??For accurate Potassium quantification in these patients send serum separator tube (gold top) for subsequent determinations. ??Contact the Clinical Chemistry Laboratory if there are any questions. Chloride 104 98 - 107 mmol/L [facility] Carbon Dioxide 27 22 - 31 mmol/L [facility] Anion Gap 10 5 - 15 mmol/L [facility] Calcium 10.4 8.5 - 10.5 mg/dL [facility] Protein, Total 6.9 6.1 - 8.0 g/dL [facility] Albumin 4.3 3.2 - 5.2 g/dL [facility] Aspartate Aminotransferase 33(H) 0 - 30 unit/L [facility] Alanine Aminotransferase 34(H) 0 - 30 unit/L [facility] Alkaline Phosphatase 98 35 - 105 unit/L [facility] Bilirubin, Total 0.6 0.2 - 1.3 mg/dL [facility] Est Glomerular Filtration Rate 89 >=60 mL/min/1. 73 m?? [facility] Comment: This patient's estimated GFR [...] Resulting Agency Comment Spec In Lab Molly Mcdermott Basilia DANGELO CHEMISTRY ORDERABL ES Performing Organization Address [facility] Co de Phone Number [facility] [place] [address] * (ABNORMAL) Prothrombin Time (06/06/2022 12:46 PM EST) Prothrombin Time 12.9(H) 9.4 - 12.5 sec [facility] International Normalization Ratio 1.1 [facility] Comment: An INR <2.0 indicates [...] APRN HEMATOLOGY ORDERAB LES Performing Organization Address City/[facility]/ZIP Co de Phone Number [facility] [place] [address] documented in this encounter Visit Diagnoses Diagnosis Hepatic cirrhosis, unspecified hepatic cirrhosis type, unspecified whether ascites present documented in this encounter Care Teams E Marketing Specialist Relationship Specialty Start Date End Date Salome Mcarthur APRN [address] [place] [address] PCP - General Family Medicine 05/30/15 12/11/23 documented as of this encounter
--- OUTSIDE RECORDS SUMMARY | 2024-03-23 12:36 | XMS_ITS | Encounter Summary ---
Author Organization [facility] [place] [address] Care Team Providers Care Checker Name Role Phone Salome Mcarthur APRN Primary Care Provider [phone] Reason for Visit * Auth/Cert Specialty Diagnoses / Procedures Referred By Jose bermudez Referred To Contact Diagnoses cirrhosis with varices, reassess. EGD ordered 05/2021 but not scheduled yet, new order with higher urgency placed. Procedures PRO UPPER GI ENDOSCOPY, DIAGNOSTIC EGD, UPPER GI ENDOSCOPY Ml Ayala MD [facility] [place] [address] [facility] Referral ID Status Reason Start Date Expiration Date Visits Re quested Visits Authorized [id number] 1 1 Encounter Details Date Type Department Care Team (Late st Contact Info) Description 01/31/2022 11:30 AM EDT - 01/31/2022 12:00 PM EDT [place] [address] Leland Ramos MD [facility] [place] [address] EGD, UPPER GI ENDOSCOPY (WRVU 2.09) Social [...] the day after the procedure, use an ebib-bpg-pkdsosq spray to numb your throat. Sucking on [...] occurs, please contact your Doctor. Please call [phone] before 8pm Mon-Fri with problems, questions or concerns. If you call after 8pm or on weekends, call the Hospital at [phone] and ask to speak to the Tank Pumper construction rigger and the fondant machine operator will contact that person for you. When should you call for help? Call [phone] anytime you think you may need emergency [...] any problems. Where can you learn more? [facility] View your After Visit Summary and more online at [email or web address] If you would like to provide [...] cost to you. Content Version: 12.2 ?? [id number] [employer]. Care instructions adapted under license by [facility]. If you have questions about a medical condition or this instruction, always ask your healthcare professional. [employer] disclaims any warranty or liability for your [...] directed. 05/02/2020 fluticasone propionate (FLONASE) 50 mcg/actuation [place], Suspension 1 spray daily. pramipexole (MIRAPEX) 0.125 [...] times daily. 60 tablet 5 02/22/2017 06/06/2022 clonazePAM (KLONOPIN) 0.5 mg Tablet nightly. 02/21/2015 [...] 04/28/2024 11:00 AM [place] [address] Molly Cui, [facility] [place] [address] 04/28/2024 2:00 PM EST Office [place] [address] Molly Cui, [facility] [place] [address] documented as of this encounter Procedures Procedure Name Priority Date/Time Associated Diagnosis Comments Upper GI Endoscopy, Diagnostic (95855) 01/31/2022 11:11 AM EDT Hepatic cirrhosis, unspecified hepatic cirrhosis type, unspecified whether ascites present POCT GLUCOSE Routine 01/31/2022 10:51 AM EDT UPPER GI ENDOSCOPY Routine 01/31/2022 10 :36 AM EDT documented in this encounter Results * POCT Glucose (01/31/2022 10:51 AM EDT) Glucose, POC 123 65 - 199 mg/dL [facility] Comment: Supplemental ranges: <140 mg/dL before meals <180 mg/dL all other times of the day Blood 01/31/2022 10:5 1 AM EDT 01/31/2022 10:51 AM EDT Leland Ramos MD POINT OF CARE TEST O RDERABLES [facility] [place] [address] * UPPER GI ENDOSCOPY (01/31/2022 10:36 AM EDT) [facility] UPPER GI ENDOSCOPY [facility] Endoscopy Procedure Date: 01/31/2022 10:36 AM ? Patient Name: Milka Corbett ? N: [id number] ? Date of : 1940 ? Age: 81 ? Order #: [id number] ? Instrument Name: [id number] ? Procedure: ? Upper GI endoscopy Indications: ? Cirrhosis with suspected esophageal ? varices Patient Profile: ? 81 yo F with BA cirrhosis ? presents for variceal surveillance ? EGD. Providers: ? Leland Ramos, Dinh Laureano, ? Frandy Gordon Referring MD: ?Sophia Mcarthur MD, None, MD Medicines: [...] ? physician, the nurse and the ? airframe and powerplant technician in the pre-procedure ? area in [...] RN) documented in this encounter Care Teams Checker Relationship Specialty Start Date End Date Salome Mcarthur, CAPPER MACHINE OPERATOR [address] [place] [address] PCP - General Family Medicine 05/30/15 12/11/23 documented as of this encounter
--- OUTSIDE RECORDS SUMMARY | 2024-03-23 12:36 | XMS_ITS | Encounter Summary ---
Author Organization [facility] [place] [address] Care Team Providers Care Lead Security Officer Name Role Phone Salome Mcarthur APRN Primary Care Provider [phone] Encounter Details Date Type Department Care Team (Late st Contact Info) Description 08/08/2023 1:30 PM EDT Office [place] [address] Molly Cui APRN [facility] [place] [address] Hepatic cirrhosis, unspecified hepatic cirrhosis type, unspecified [...] in this encounter Progress Notes * Molly Ciu APRN - 08/08/2023 1:30 PM EDT Hepatology [...] pain in her chest, She saw a supply technician, considered R heart cath and patient declined. Gets pain after climbing stairs, pain went away when she stopped moving. Has had acid reflux previously, taking Omeprazole 2 pills, at same time of day. She had an upper endoscopy in January 2023 which did not show any signs of ongoing reflux. Taking Metoprolol, prescribed by supply technician this winter. Tomorrow she is seeing her [...] Vitals: 08/08/23 1338 BP: 129/56 BP Location ([facility]): Right arm Patient Position: Sitting [...] would like to do with PCP, Aysha Johnsno in [place]. -Follow-up in 6 months with labs and ultrasound Molly Cui APRN Section of [place]astroenter[place] [address] Copy: Salome Mcarthur APRN [address] / [place] [address] Time spent reviewing records prior to this [...] 04/28/2024 11:00 AM EST Appointment Ultrasound at [place] [phone] Molly Cui APRN [facility] [place] [address] 04/28/2024 2:00 PM EST Office Visit Gastroenterology at [place] [phone] Molly Cui SWEET PICKLED FRUIT MAKER [facility] [place] [address] Scheduled Orders Name Type Priority Associated Diagnoses [...] present documented in this encounter Care Teams Lead Security Officer Relationship Specialty Start Date End Date Salome Mcarthur APRN [address] [place] [address] PCP - General Family Medicine 05/30/15 12/11/23 documented as of this encounter
--- OUTSIDE RECORDS SUMMARY | 2024-03-23 12:36 | XMS_ITS | Encounter Summary ---
Author Organization [facility] [place] [address] Care Team Providers Care Automotive Engineer Name Role Phone Salome Mcarthur APRN Primary Care Provider [phone] Encounter Details Date Type Department Care Team (Latest Contact Info) Description 12/05/2022 12:15 PM EDT Laboratory Appointment Lab [address]L [place] [address] Hepatic cirrhosis, unspecified hepatic cirrhosis [...] 04/28/2024 11:00 AM EST App[place]ment [place] [address] Molly Cui [facility] [place] [address] 04/28/2024 2:00 PM EST Office [place] [address] Molly Cui [facility] [place] [address] documented as of this encounter [...] 12:22 PM EDT) Neutrophil % 56.6 % [facility] Neutrophil Absolute 2.71 1.70 - 6.10 x10(3)/[facility] LABOR[facility] Lymph % 30.5 % [facility] Lymphocytes Abs 1.5 0.9 - 3.2 x10(3)/[facility] LABORATORY Monocyte % 9.2 % [facility] Monocyte Abs 0.4 0.3 - 0.9 x10(3)/[facility] LABORATORY Eos % 2.9 % [facility] Eosinophils Abs 0.1 0.0 - 0.4 x10(3)/[facility] LABORATORY Basophil % 0.4 % [facility] Baso Absolute 0.0 0.0 - 0.1 x10(3)/[facility] LABORATORY Immature Gran % 0.40 % [facility] Comment: Immature granulocytes(IG's)percentage and absolute count will include metamyelocytes, myelocytes, and promyelocytes. Blood smears from CBCs yielding IG's will be scanned manually for concordance. If this scan disagrees with the automated IG or if promyelocytes are noted, a manual differential will be performed. Immature Gran Absolute 0.02 0.00 - 0.04 x10(3)/mcL [facility] Blood 12/05/2022 12:2 2 PM EDT 12/05/2022 12:47 PM EDT Narrative Resulting Agency Comment Spec In Lab Molly Cui DOUBLE BASS PLAYER HEMATOLOGY ORDERAB LES [facility] [place] [address] * (ABNORMAL) Hemogram (12/05/2022 12:22 PM EDT) White Blood Cell 4.8 4.0 - 9.5 x10(3)/mc L [facility] Red Blood Cell 4.13 4.00 - 5.21 x10(6)/mc L [facility] Hemoglobin 12.8 11.7 - 15.5 g/dL [facility] Hematocrit 38.5 35.7 - 45.8 % [facility] Mean Cell Volume 93.2 82.6 - 94.4 fL [facility] Mean Cell Hemoglobin 31.0 27.1 - 32.0 pg [facility] Mean Cell Hemoglobin Concentration 33.2 31.7 - 35.0 g/dL [facility] Platelet 91(L) 145 - 357 x10(3)/mc L [facility] RDW Standard Deviation 46.7(H) 37.0 - 46.0 fL [facility] RDW coefficient of variation 13.8 11.5 - 14.1 % [facility] Mean Platelet Volume 11.2 7.6 - 12.9 fL [facility] NRBC% auto 0.0 % [facility] NRBC Absolute 0.000 0.000 - 0.000 x10(3)/mc L [facility] Blood 12/05/2022 12:2 2 PM EDT 12/05/2022 12:47 PM EDT Narrative Resulting Agency Comment Spec In Lab Molly Cui DOUBLE BASS PLAYER HEMATOLOGY ORDERAB LES [facility] [place] [address] * (ABNORMAL) Comprehensive metabolic panel (non-fasting) (12/05/2022 12:22 PM EDT) Glucose 114 65 - 199 mg/dL [facility] Comment:Diabetes: >=200 mg/d L plus symptoms Blood Urea Nitrogen 17 8 - 18 mg/dL [facility] Creatinine 0.71 0.70 - 1.20 mg/dL [facility] Sodium 142 135 - 145 mmol/L [facility] Potassium 4.1 3.5 - 5.0 mmol/L [facility] Comment: Please note: ??Patients with WBC >100,000 may have falsely elevated Potassium levels. ??For accurate Potassium quantification in these patients send serum separator tube (gold top) for subsequent determinations. ??Contact the Clinical Chemistry Laboratory if there are any questions. Chloride 105 98 - 107 mmol/L [facility] Carbon Dioxide 28 22 - 31 mmol/L [facility] Anion Gap 9 5 - 15 mmol/L [facility] Calcium 9.7 8.5 - 10.5 mg/dL [facility] Protein, Total 7.0 6.1 - 8.0 g/dL [facility] Albumin 4.2 3.2 - 5.2 g/dL [facility] Aspartate Aminotransferase 33(H) 0 - 30 unit/L [facility] Alanine Aminotransferase 32(H) 0 - 30 unit/L [facility] Alkaline Phosphatase 136(H) 35 - 105 unit/L [facility] Bilirubin, Total 0.6 0.2 - 1.3 mg/dL [facility] Est Glomerular Filtration Rate 85 >=60 mL/min/1. 73 m?? [facility] Comment: This patient's estimated GFR [...] APRN CHEMISTRY ORDERABL ES Performing Organization Address [facility] Co de Phone Number [facility] [place] [address] * (ABNORMAL) Prothrombin Time (12/05/2022 12:22 PM EDT) Prothrombin Time 13.2(H) 9.4 - 12.5 sec [facility] International Normalization Ratio 1.2 [facility] Comment: An INR <2.0 indicates [...] APRN HEMATOLOGY ORDERAB LES Performing Organization Address [facility] Co de Phone Number [facility] [place] [address] documented in this encounter Visit Diagnoses Diagnosis Hepatic cirrhosis, unspecified hepatic cirrhosis type, unspecified whether ascites present documented in this encounter Care Teams Automotive Engineer Relationship Specialty Start Date End Date Salome Mcarthur APRN [address] [place] [address] PCP - General Family Medicine 05/30/15 12/11/23 documented as of this encounter
--- OUTSIDE RECORDS SUMMARY | 2024-03-23 12:36 | XMS_ITS | Encounter Summary ---
Author Organization [facility] [place] [address] Care Team Providers Care Stores Despatch Hand Name Role Phone Salome Mcarthur APRN Primary Care Provider [phone] Encounter Details Date Type Department Care Team (Late st Contact Info) Description 01/15/2022 Telephone [place] [phone] Gabriela Wright Social History Tobacco Use Types [...] 04/28/2024 11:00 AM EST Appointment [place] [phone] Molly Cui [facility] [place] [address] 04/28/2024 2:00 PM EST Office [place] [address] Molly Cui [facility] [place] [address] documented as of this encounter Visit Diagnoses Not on filedocumented in this encounter Care Teams Stores Despatch Hand Relationship Specialty Start Date End Date Wohlberg, Salome B, [employer] SL[employer]ER [address] [place] [address] PCP - General Family Medicine 05/30/15 12/11/23 documented as of this encounter
--- OUTSIDE RECORDS SUMMARY | 2024-03-23 12:36 | XMS_ITS | Encounter Summary ---
Author Organization [facility] Address [facility] [place] [address] Care Team Providers Care Torpedo Man Name Role Phone Salome Mcarthur APRN Primary Care Provider [phone] Encounter Details Date Type Department Care Team (Latest Contact Info) Description 12/05/2022 11:03 AM EDT - 12/05/2022 11:59 PM EDT Hospital [place] [phone] Molly Wallis MATERIALS PLANNING ANALYST [facility] [place] [address] Hepatic cirrhosis, unspecified hepatic cirrhosis type, unspecified [...] directed. 05/02/2020 fluticasone propionate (FLONASE) 50 mcg/actuation [place], Suspension 1 spray daily. pramipexole (MIRAPEX) 0.125 [...] 04/28/2024 11:00 AM [place] [address] Molly Wallis, [facility] [place] [address] 04/28/2024 2:00 PM EST Office [place] [address] Molly Wallis, MATERIALS PLANNING ANALYST [facility] [place] [address] documented as of this encounter Procedures Procedure [...] who have questions, please contact the health director of healthcare systems that requested your imaging first. ?Avila Keith, Staff Physician Electronically Signed Final Report ?? 12/05/2022 11:56 am Narrative 12/05/2022 11:57 AM EDT Abdominal ? (Signed Final 12/05/2022 11:56 am) PATIENT INFO: ID #: ? [id number] ?: ??[birth year] (82 yrs)(F) Name: ? MILKA MENDIETA ?Visit Date: 12/05/2022 11:36 am PERFORMED BY: Attending: ?Avila Keith MD Performed By: ? Sanjeev Marshall RDMS Referred By: ?MOLLY WALLIS Secondary Phy.: ?? MOLLY WALLIS MATERIALS PLANNING ANALYST Location: ? [place] [facility] Protocol - Abdominal ?55337 Limited Survey Single Organ or Quadrant - [id number] INDICATIONS: cirrhosis, screen for hcc ------ LIVER: [...] 12/05/2022 11:56 am) PATIENT INFO: ID #: [id number] : 42 (82 yrs)(F) Name: MILKA MENDIETA Visit Date: 12/05/2022 11:36 am PERFORMED BY: Attending: Avila Keith MD Performed By: Sanjeev Marshall RDMS Referred By: MOLLY WALLIS Secondary Phy.: MOLLY WALLIS APRN Location: [place] SERVICE(S) PROVIDED: [facility] - Hepatology Protocol - Abdominal 06261 Limited Survey Single Organ or Quadrant - [id number] INDICATIONS: cirrhosis, screen for hcc ------ LIVER: [...] many studies, dating back to at least 2018. No new or concerning focal lesion. 3. [...] who have questions, please contact the health director of healthcare systems that requested your imaging first. Avila Keith, Staff Physician Electronically Signed Final Report 12/05/2022 11:56 am Molly Wallis APRN IMG GEN ORDERAB LES documented in this encounter Visit Diagnoses Diagnosis Hepatic cirrhosis, unspecified hepatic cirrhosis type, unspecified whether ascites present documented in this encounter Care Teams Torpedo Man Relationship Specialty Start Date End Date Salome Mcarthur APRN [address] [place] [address] PCP - General Family Medicine 05/30/15 12/11/23 documented as of this encounter
--- OUTSIDE RECORDS SUMMARY | 2024-03-23 12:36 | XMS_ITS | Encounter Summary ---
Author Organization [facility] [place] [place] [address] Care Team Providers Care Compound Mixer Name Role Phone Salome Mcarthur APRN Primary Care Provider [phone] Encounter Details Date Type Department Care Team (Late st Contact Info) Description 05/13/2023 Telephone [place] [address] Lisette Nicholson Social History Tobacco [...] 04/28/2024 11:00 AM [place] [phone] Molly Cui APRN [facility] [place] [address] 04/28/2024 2:00 PM EST Office [place] [address] Molly Cui APRN [facility] [place] [address] documented as of this encounter Visit Diagnoses Not on filedocumented in this encounter Care Teams Compound Mixer Relationship Specialty Start Date End Date Salome Mcarthur APRN [address] [place] [address] PCP - General Family Medicine 05/30/15 12/11/23 documented as of this encounter
--- OUTSIDE RECORDS SUMMARY | 2024-03-23 12:36 | XMS_ITS | Encounter Summary ---
[place] [address] Care Team Providers Care Traffic Law Attorney Name Role Phone Salome Mcarthur APRN Primary Care Provider [phone] Encounter Details Date Type Department Care Team (Late st Contact Info) Description 10/08/2023 Telephone [place] [address] Leyla Daily Social History Tobacco [...] 04/28/2024 11:00 AM [place] [address] Molly Cui [facility] [place] [address] 04/28/2024 2:00 PM EST Office [place] [address] Molly Cui [facility] [place] [address] documented as of this encounter Visit Diagnoses Not on filedocumented in this encounter Care Teams Traffic Law Attorney Relationship Specialty Start Date End Date Salome Mcarthur APRN [address] [place] [address] PCP - General Family Medicine 05/30/15 12/11/23 documented as of this encounter
--- OUTSIDE RECORDS SUMMARY | 2024-03-23 12:36 | XMS_ITS | Encounter Summary ---
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 Procedures PRO UPPER GI ENDOSCOPY, DIAGNOSTIC PRO ANESTH, UGI ENDOSCOPY NOS EGD, UPPER GI ENDOSCOPY (WRVU 2.09) Juliette Chauhan MD [facility] [place] [address] [facility] Referral ID Status Reason Start Date Expiration Date Visits Re quested Visits Authorized [id number] 1 1 Encounter Details Date Type Department Care Team (Latest Contact Info) Description 01/23/2023 11:52 AM EDT - 01/23/2023 1:44 PM EDT Hospital En[place] [address] Juliette Chauhan MD [facility] [place] [address] Discharge Disposition: Home Social History Tobacco Use [...] the day after the procedure, use an woyq-vht-mgvckax spray to numb your throat. Sucking on [...] occurs, please contact your Doctor. Please call [phone] before 8pm Mon-Fri with problems, questions or concerns. If you call after 8pm or on weekends, call the Hospital at [phone] and ask to speak to the Disability Counselor pets and pet supplies salesperson and the treadle cut off saw operator will contact that person for you. When should you call for help? Call [phone] anytime you think you may need emergency [...] After Visit Summary and more online at [email or web address] If you would like to provide feedback [...] cost to you. Content Version: 12.2 ?? [id number] [employer]. Care instructions adapted under license by [facility]. If you have questions about a medical condition or this instruction, always ask your healthcare professional. [employer] disclaims any warranty or liability for your [...] directed. 05/02/2020 fluticasone propionate (FLONASE) 50 mcg/actuation [place], Suspension 1 spray daily. pramipexole (MIRAPEX) 0.125 [...] 04/28/2024 11:00 AM [place] [address] Molly Cui, [facility] [place] [address] 04/28/2024 2:00 PM EST Office [place] [phone] Molly Cui, [facility] [place] [address] documented as of this encounter Procedures Procedure Name Priority Date/Time Associated Diagnosis Comments Upper GI Endoscopy, Diagnostic (61664) 01/23/2023 12:23 PM EDT Hepatic cirrhosis, unspecified hepatic cirrhosis type, unspecified whether ascites present UPPER GI ENDOSCOPY Routine 01/23/2023 12 :11 PM EDT documented in this encounter Results * UPPER GI ENDOSCOPY (01/23/2023 12:11 PM EDT) [facility] Signature UPPER GI ENDOSCOPY [facility] Endoscopy Procedure Date: 01/23/2023 12:11 PM ? Patient Name: Milka Corbett ? Date of : 1940 ? Age: 82 ? Order #: [id number] ? Instrument Name: [id number] ? Procedure: ? Upper GI endoscopy Indications: ? Follow-up of esophageal varices Providers: ? Juliette Chauhan MD, Yaw R. ? , TRISHA, Kalpana Perez MD: ?Sophia [...] I personally performed the entire procedure. ? uJliette Chauhan MD Juliette Chauhan MD 01/23/2023 12:50:06 PM This report has been signed electronically. Number of Addenda: 0 Note Initiated On: 01/23/2023 12:11 PM PROVATION 01/23/2023 12:1 1 PM EDT Salome Mcarthur [employer] [facility] [employer]OVATION documented in [...] RN) documented in this encounter Care Teams Dragline Engineer Relationship Specialty Start Date End Date Salome Mcarthur, [employer] [address] [place] [address] PCP - General Family Medicine 05/30/15 12/11/23 documented as of this encounter
--- OUTSIDE RECORDS SUMMARY | 2024-03-23 12:36 | XMS_ITS | Encounter Summary ---
Author Organization [facility] Address [facility] [place] [address] Care Team Providers Care Data Specialist Name Role Phone Salome Mcarthur APRN Primary Care Provider [phone] Encounter Details Date Type Department Care Team (Late st Contact Info) Description 01/03/2022 Telephone [place] [phone] Kyle July Social History Tobacco Use Types Packs/Day Years [...] Notes * Telephone Encounter - KyleJuly - 01/03/2022 9:03 AM EDT Milka Corbett [id number] Diagnosis/Indication: cirrhosis with varices, reassess. EGD ordered [...] No 18. You must have a responsible green party who will drive you to your procedure, stay on campus for the entire duration of your procedure, and drive you home from your procedure. Who will likely be your shuttle van driver for the procedure? *Please Verify the [...] 04/28/2024 11:00 AM EST [place]oint[place] [address] Molly Cui, [facility] [place] [address] 04/28/2024 2:00 PM EST Office [place] [address] Molly Cui, [facility] [place] [address] documented as of this encounter Visit Diagnoses Not on filedocumented in this encounter Care Teams Data Specialist Relationship Specialty Start Date End Date Salome Mcarthur APRN [address] [address] PCP - General Family Medicine 05/30/15 12/11/23 documented as of this encounter
--- OUTSIDE RECORDS SUMMARY | 2024-03-23 12:36 | XMS_ITS | Encounter Summary ---
[facility] Organization [facility] [place] [address] Care Team Providers Care Automotive Machinist Name Role Phone Salome cMarthur APRN Primary Care Provider [phone] Encounter Details Date Type Department Care Team (Late st Contact Info) Description 12/05/2022 1:30 PM EDT Office [place] [address] Molly Wallis APRN [facility] [place] [address] Hepatic cirrhosis, unspecified hepatic cirrhosis type, unspecified [...] Progress Notes * Molly Wallis APRN - 12/05/2022 1:30 PM EDT Hepatology Follow Up Note Patient: Milka Mendieta Gender: female : 1940 Provider: Molly Wallis NP Referring Physician: Salome Mcarthur APRN HISTORY OF PRESENT ILLNESS Milka Mendieta is a 82 y.o. year old [...] for the 12/05/22 encounter (Office Visit) with Molly Wallis APRN Medication Sig Dispense Refill atorvastatin [...] for the 12/05/22 encounter (Office Visit) with Molly Wallis APRN [...] Vitals: 12/05/22 1322 BP: 126/70 BP Location (NBP): Right arm Patient Position: [...] volume 660 mL. 5. No ascites. ASSESSMENT/PLAN Milka Mendieta is a 82 y.o. female with [...] for varices surveillance, will place orders today. Molly Wallis APRN Section of Gastroenterology [place] [address] Copy: Salome Mcarthur APRN [address] / [place] [address] Time spent reviewing records prior to this [...] 04/28/2024 11:00 AM [place] [phone] Molly Wallis [facility] [place] [address] 04/28/2024 2:00 PM EST Office [place] [phone] Molly Wallis, [facility] [place] [address] Scheduled Orders Name Type Priority Associated Diagnoses Orde r Schedule ENDOSCOPY CASE REQUEST: EGD, UPPER GI ENDOSCOPY (WRVU 2.09) Procedures Routine Hepatic cirrhosis, unspecified hepatic cirrhosis type, unspecified whether ascites present Ordered: 12/05/2022 documented as of this encounter Results * Prothrombin Time (08/08/2023 12:19 PM EDT) Prothrombin Time 12.2 9.4 - 12.5 sec [facility] International Normalization Ratio 1.1 [facility] Comment: An INR <2.0 [...] APRN HEMATOLOGY ORDERAB LES [facility] [place] [address] * (ABNORMAL) Comprehensive metabolic panel (non-fasting) (08/08/2023 12:19 PM EDT) Glucose 110 65 - 199 mg/dL [facility] Comment:Diabetes: >=200 mg/d L plus symptoms Blood Urea Nitrogen 19(H) 8 - 18 mg/dL [facility] Creatinine 0.72 0.70 - 1.20 mg/dL [facility] Sodium 144 135 - 145 mmol/L [facility] Potassium 4.1 3.5 - 5.0 mmol/L [facility] Comment: Please note: ??Patients with WBC >100,000 may have falsely elevated Potassium levels. ??For accurate Potassium quantification in these patients send serum separator tube (gold top) for subsequent determinations. ??Contact the Clinical Chemistry Laboratory if there are any questions. Chloride 101 98 - 107 mmol/L [facility] Carbon Dioxide 28 22 - 31 mmol/L [facility] Anion Gap 15 5 - 15 mmol/L [facility] Calcium 10.0 8.5 - 10.5 mg/dL [facility] Protein, Total 7.0 6.1 - 8.0 g/dL [facility] Albumin 4.2 3.2 - 5.2 g/dL [facility] Aspartate Aminotransferase 34(H) 0 - 30 unit/L [facility] Alanine Aminotransferase 33(H) 0 - 30 unit/L [facility] Alkaline Phosphatase 121(H) 35 - 105 unit/L [facility] Bilirubin, Total 0.5 0.2 - 1.3 mg/dL [facility] Est Glomerular Filtration Rate 83 >=60 mL/min/1. 73 m?? [facility] Comment: This patient's estimated GFR [...] Agency Comment Spec In Lab Molly Wallis AGRONOMY RESEARCH MANAGER CHEMISTRY ORDERABL ES [facility] [place] [address] * US Abdomen Limited Hepatology Protocol (08/08/2023 11:45 AM EDT) WORKSTATION ID [id number] RAD Anatomical Region Laterality Modality Abdomen Ultrasound [...] PM Electronically signed by: Alisha Grove MD, [facility] ([phone]), at 08/08/2023 1:24 PM Thank you for letting us participate in the care of this patient. If you are a health care provider and have any questions regarding this report, please contact the number above. For patients who have questions, please contact the health customer care professional that requested your imaging first. ?Alisha Grove, Staff Physician Electronically Signed Final Report ?? 08/08/2023 01:31 pm Narrative 08/08/2023 1:32 PM EDT Abdominal ? (Signed Final 08/08/2023 01:31 pm) PATIENT INFO: ID #: ? [id number] ?: ??[birth year] (83 yrs)(F) Name: ? MILKA MENDIETA ?Visit Date: 08/08/2023 11:27 am PERFORMED BY: Attending: ?Perfecto GALLO, Alisha Carpio Resident: ? Stevie GALLO, [facility] Performed By: ? Ayaka Biswas RDMS Referred By: ?MOLLY WALLIS Location: ? [place] [facility] - Hepatology Protocol - Abdominal ?33419 Limited Survey Single Organ or Quadrant - [id number] INDICATIONS: cirrhosis, screen for hcc, splenomegaly ------ [...] 08/08/2023 01:31 pm) PATIENT INFO: ID #: [id number] : [birth year] (83 yrs)(F) Name: MILKA MENDIETA Visit Date: 08/08/2023 11:27 am PERFORMED BY: Attending: Alisha Grove MD Resident: Stevie GALLO [facility] Performed By: Ayaka Biswas RDMS Referred By: MOLLY WALLIS Location: [place] SERVICE(S) PROVIDED: [facility] - Hepatology Protocol - Abdominal 18062 Limited Survey Single Organ or Quadrant - [id number] INDICATIONS: cirrhosis, screen for hcc, splenomegaly ------ [...] PM Electronically signed by: Alisha Grove MD, [facility] ([phone]), at 08/08/2023 1:24 PM Thank you for letting us participate in the care of this patient. If you are a health care provider and have any questions regarding this report, please contact the number above. For patients who have questions, please contact the health customer care professional that requested your imaging first. Alsiha Grove, Staff Physician Electronically Signed Final Report 08/08/2023 01:31 pm Molly Wallis APRN [facility] GEN ORDERAB LES documented in this encounter Visit Diagnoses Diagnosis Hepatic cirrhosis, unspecified hepatic cirrhosis type, unspecified whether ascites present Hepatic cirrhosis, unspecified hepatic cirrhosis type, unspecified whether ascites present documented in this encounter Care Teams Automotive Machinist Relationship Specialty Start Date End Date Salome Mcarthur APRN [address] [place] [address] PCP - General Family Medicine 05/30/15 12/11/23 documented as of this encounter
--- OUTSIDE RECORDS SUMMARY | 2024-03-23 12:36 | XMS_ITS | Encounter Summary ---
Author Organization [facility] Address [facility] [place] [address] Care Team Providers Care Base Brander Name Role Phone Salome Mcarthur APRN Primary Care Provider [phone] Encounter Details Date Type Department Care Team (Latest Contact Info) Description 08/08/2023 11:20 AM EDT - 08/08/2023 11:59 PM EDT Hospital Encounter [place] [phone] Molly Wallis JOIST SETTER [facility] [place] [address] Hepatic cirrhosis, unspecified hepatic cirrhosis type, unspecified [...] directed. 05/02/2020 fluticasone propionate (FLONASE) 50 mcg/actuation [place], Suspension 1 spray daily. pramipexole (MIRAPEX) 0.125 [...] (with meals). 60 tablet 3 08/08/2023 10/23/2023 omeprazole (PriLOSEC) [address] capsuleIndications:Ga stroesophageal reflux disease without esophagitis TAKE [...] 04/28/2024 11:00 AM EST Appointment [place] [address] Molly Wallis JOIST SETTER [facility] [place] [address] 04/28/2024 2:00 PM EST Office Visit [place] [phone] Molly Wallis JOIST SETTER [facility] [place] [address] documented as of this encounter Procedures Procedure Name Priority Date/Time Associated Diagnosis Comments US ABDOMEN LIMITED HEPATOLOGY PROTOCOL Routine 08/08/2023 11:45 AM EDT Hepatic cirrhosis, unspecified hepatic cirrhosis type, unspecified whether ascites present documented in this encounter Results * US Abdomen Limited Hepatology Protocol (08/08/2023 11:45 AM EDT) WORKSTATION ID [id number] RAD Anatomical Region Laterality Modality Abdomen Ultrasound [...] who have questions, please contact the health patient care associate that requested your imaging first. ?Alisha J. Perfecto, Staff Physician Electronically Signed Final Report ?? 08/08/2023 01:31 pm Narrative 08/08/2023 1:32 PM EDT Abdominal ? (Signed Final 08/08/2023 01:31 pm) PATIENT INFO: ID #: ? [id number] ?: ??[birth year] (83 yrs)(F) Name: ? MILKA MENDIETA ?Visit Date: 08/08/2023 11:27 am PERFORMED BY: Attending: ?Perfecto GALLO, Alisha Carpio Resident: ? Stevie GALLO, [facility] Performed By: ? Ayaka Biswas RDMS Referred By: ?MOLLY WALLIS Location: ? [employer] SERVICE(S) PROVIDED: [facility] - Hepatology Protocol - Abdominal ?85726 Limited Survey Single Organ or Quadrant - [id number] INDICATIONS: cirrhosis, screen for hcc, splenomegaly ------ [...] 08/08/2023 01:31 pm) PATIENT INFO: ID #: [id number] : [birth year] (83 yrs)(F) Name: MILKA MENDIETA Visit Date: 08/08/2023 11:27 am PERFORMED BY: Attending: Alisha Grove MD Resident: Mode Hubbard MD Performed By: Ayaka Biswas RDMS Referred By: MOLLY WALLIS Location: [employer] SERVICE(S) [facility] - Hepatology Protocol - Abdominal 72200 Limited Survey Single Organ or Quadrant - [id number] INDICATIONS: cirrhosis, screen for hcc, splenomegaly ------ [...] who have questions, please contact the health patient care associate that requested your imaging first. Alisha Grove, Staff Physician Electronically Signed Final Report 08/08/2023 01:31 pm Molly Wallis [facility]N [facility] GEN ORDERAB LES documented in this encounter Visit Diagnoses Diagnosis Hepatic cirrhosis, unspecified hepatic cirrhosis type, unspecified whether ascites present documented in this encounter Care Teams Base Brander Relationship Specialty Start Date End Date Salome Mcarthur APRN [address] [place] [address] PCP - General Family Medicine 05/30/15 12/11/23 documented as of this encounter
--- OUTSIDE RECORDS SUMMARY | 2024-03-23 12:36 | XMS_ITS | Encounter Summary ---
Author Organization [facility] Address [facility] [place] [address] Care Team Providers Care Waste Duster Name Role Phone Salome Mcarthur APRN Primary Care Provider [phone] Encounter Details Date Type Department Care Team (Late st Contact Info) Description 01/08/2023 [place]phone [place] [address] Kyle July Social History Tobacco Use Types [...] - 01/08/2023 12:22 PM EDT Milka Corbett [id number] Diagnosis/Indication: cirrhosis with varices Please review patient [...] procedure? No You must have a responsible democrat who will drive you to your procedure, stay on campus for the entire duration of your procedure, and drive you home from your procedure. Who will likely be your wrecking car driver for the procedure? *Please Verify the [...] 04/28/2024 11:00 AM [place] [phone] Molly Cui, [facility] [place] [address] 04/28/2024 2:00 PM EST Office [place] [phone] Molly Cui, [facility] [place] [address] documented as of this encounter Visit Diagnoses Not on filedocumented in this encounter Care Teams Waste Duster Relationship Specialty Start Date End Date Slaome Mcarthur APRN [address] [place] [address] PCP - General Family Medicine 05/30/15 12/11/23 documented as of this encounter
--- OUTSIDE RECORDS SUMMARY | 2024-03-23 12:36 | XMS_ITS | Encounter Summary ---
Author Organization [facility] [place] [address] Care Team Providers Care Food And Beverage Director Name Role Phone Salome Mcarthur APRN Primary Care Provider [phone] Encounter Details Date Type Department Care Team (Late st Contact Info) Description 06/06/2022 2:30 PM EST Office Visit [place] [phone] Molly Wallis APRN [facility] [place] [address] Hepatic cirrhosis, unspecified hepatic cirrhosis type, unspecified [...] Injector ??? fluticasone propionate (FLONASE) 50 mcg/actuation [place], Suspension 1 spray daily. ??? pramipexole (MIRAPEX) [...] Vitals: 06/06/22 1406 BP: 151/63 BP Location (NBP): Left arm Patient Position: Sitting BP Cuff [...] Wallis APRN Section of Gastroenterology [place] [address] Copy: Salome Mcarthur APRN [address] / [place] [address] Time spent reviewing records prior to this [...] 04/28/2024 11:00 AM EST Appointment [place] [address] Molly Wallis PLANOGRAPH OPERATOR [facility] [place] [address] 04/28/2024 2:00 PM EST Office Visit [place] [address] Molly Wallis PLANOGRAPH OPERATOR [facility] [place] [address] documented as of this encounter Results * (ABNORMAL) Prothrombin Time (12/05/2022 12:22 PM EDT) Prothrombin Time 13.2(H) 9.4 - 12.5 sec [facility] International Normalization Ratio 1.2 [facility] Comment: An INR <2.0 indicates [...] Comment Spec In Lab Molly A Basilia PLANOGRAPH OPERATOR HEMATOLOGY ORDERAB LES [facility] [place] [address] * (ABNORMAL) Comprehensive metabolic panel (non-fasting) (12/05/2022 12:22 PM EDT) Glucose 114 65 - 199 mg/dL [facility] Comment:Diabetes: >=200 mg/d L plus symptoms Blood Urea Nitrogen 17 8 - 18 mg/dL [facility] Creatinine 0.71 0.70 - 1.20 mg/dL [facility] Sodium 142 135 - 145 mmol/L [facility] Potassium 4.1 3.5 - 5.0 mmol/L [facility] Comment: Please note: ??Patients with WBC >100,000 may have falsely elevated Potassium levels. ??For accurate Potassium quantification in these patients send serum separator tube (gold top) for subsequent determinations. ??Contact the Clinical Chemistry Laboratory if there are any questions. Chloride 105 98 - 107 mmol/L [facility] Carbon Dioxide 28 22 - 31 mmol/L [facility] Anion Gap 9 5 - 15 mmol/L [facility] Calcium 9.7 8.5 - 10.5 mg/dL [facility] Protein, Total 7.0 6.1 - 8.0 g/dL [facility] Albumin 4.2 3.2 - 5.2 g/dL [facility] Aspartate Aminotransferase 33(H) 0 - 30 unit/L [facility] Alanine Aminotransferase 32(H) 0 - 30 unit/L [facility] Alkaline Phosphatase 136(H) 35 - 105 unit/L [facility] Bilirubin, Total 0.6 0.2 - 1.3 mg/dL [facility] Est Glomerular Filtration Rate 85 >=60 mL/min/1. 73 m?? [facility] Comment: This patient's estimated GFR [...] Lab Molly Wallis APRN CHEMISTRY ORDERABL ES [facility] [place] [address] * US Abdomen Limited Hepatology Protocol (12/05/2022 [...] ascites. Electronically signed by: Avila Keith MD, [facility] ([phone]), at 12/05/2022 11:48 AM Thank you for letting us participate in the care of this patient. If you are a health care provider and have any questions regarding this report, please contact the number above. For patients who have questions, please contact the health critical care cns that requested your imaging first. ?Avila Keith, Staff Physician Electronically Signed Final Report ?? 12/05/2022 11:56 am Narrative 12/05/2022 11:57 AM EDT Abdominal ? (Signed Final 12/05/2022 11:56 am) PATIENT INFO: ID #: ? [id number] ?: ??[birth year] (82 yrs)(F) Name: ? MILKA MENDIETA ?Visit Date: 12/05/2022 11:36 am PERFORMED BY: Attending: ?Avila Keith MD Performed By: ? Sanjeev Marshall RDMS Referred By: ?MOLLY WALLIS Secondary Phy.: ?? MOLLY WALLIS PLANOGRAPH OPERATOR Location: ? [place] SERVICE[facility]S) [facility] - Hepatology Protocol - Abdominal ?15712 Limited Survey Single Organ or Quadrant - [id number] INDICATIONS: cirrhosis, screen for hcc ------ LIVER: [...] 12/05/2022 11:56 am) PATIENT INFO: ID #: [id number] : [birth year] (82 yrs)(F) Name: MILKA MENDIETA Visit Date: 12/05/2022 11:36 am PERFORMED BY: Attending: Avila Keith MD Performed By: Sanjeev Marshall RDMS Referred By: MOLLY WALLIS Secondary Phy.: MOLLY WALLIS APRN Location: [place] SERVICE(S) PROVIDED: [facility] - Hepatology Protocol - Abdominal 46861 Limited Survey Single Organ or Quadrant - [id number] INDICATIONS: cirrhosis, screen for hcc ------ LIVER: [...] ascites. Electronically signed by: Avila Keith MD, [facility] ([phone]), at 12/05/2022 11:48 AM Thank you for letting us participate in the care of this patient. If you are a health care provider and have any questions regarding this report, please contact the number above. For patients who have questions, please contact the health critical care cns that requested your imaging first. Avila Keith, Staff Physician Electronically Signed Final Report 12/05/2022 11:56 am Molly Wallis APRN IMG GEN ORDERAB LES documented in this encounter Visit Diagnoses Diagnosis Hepatic cirrhosis, unspecified hepatic cirrhosis type, unspecified whether ascites present Hepatic cirrhosis, unspecified hepatic cirrhosis type, unspecified whether ascites present documented in this encounter Care Teams Food And Beverage Director Relationship Specialty Start Date End Date Salome Mcarthur APRN [address] [place] [address] PCP - General Family Medicine 05/30/15 12/11/23 documented as of this encounter
--- OUTSIDE RECORDS SUMMARY | 2024-03-23 12:36 | XMS_ITS | Encounter Summary ---
Author Organization [facility] [place] [address] Care Team Providers Care Php Mysql Developer Name Role Phone Salome Mcarthur APRN Primary Care Provider +1 [phone] Encounter Details Date Type Department Care Team (Latest Contact Info) Description 11/29/2021 11:30 AM EDT Laboratory Appointment Lab [address] [place] [address] Hepatic cirrhosis, unspecified hepatic cirrhosis [...] 04/28/2024 11:00 AM EST [place] [address] Molly Cui [facility] [place] [address] 04/28/2024 2:00 PM EST Office [place] [address] Molly Cui [facility] [place] [address] documented as of this encounter [...] 11:04 AM EDT) Neutrophil % 65.7 % [facility] Neutrophil Absolute 5.57 1.70 - 6.10 x10(3)/[facility] LABORATORY Lymph % 21.4 % [facility] Lymphocytes Abs 1.8 0.9 - 3.2 x10(3)/[facility] LABORATORY Monocyte % 10.3 % [facility] Monocyte Abs 0.9 0.3 - 0.9 x10(3)/[facility] LABORATORY Eos % 1.9 % [facility] Eosinophils Abs 0.2 0.0 - 0.4 x10(3)/[facility] LABORATORY Basophil % 0.5 % [facility] Baso Absolute 0.0 0.0 - 0.1 x10(3)/[facility] LABORATORY Immature Gran % 0.20 % [facility] Comment: Immature granulocytes(IG's)percentage and absolute count will include metamyelocytes, myelocytes, and promyelocytes. Blood smears from CBCs yielding IG's will be scanned manually for concordance. If this scan disagrees with the automated IG or if promyelocytes are noted, a manual differential will be performed. Immature Gran Absolute 0.02 0.00 - 0.04 x10(3)/[facility] LABORATORY Blood 11/29/2021 11:0 4 AM EDT 11/29/2021 11:12 AM EDT Narrative Resulting Agency Comment Spec In Lab Molly Cui APRN HEMATOLOGY ORDERAB LES Performing Organization Address City/State/[facility] Co de Phone Number [facility] [place] [address] * (ABNORMAL) Hemogram (11/29/2021 11:04 AM EDT) White Blood Cell 8.5 4.0 - 9.5 x10(3)/[facility] LABORATORY Red Blood Cell 4.44 4.00 - 5.21 x10(6)/[facility] LABORATORY Hemoglobin 13.6 11.7 - 15.5 g/dL [facility] Hematocrit 40.2 35.7 - 45.8 % [facility] Mean Cell Volume 90.5 82.6 - 94.4 fL [facility] Mean Cell Hemoglobin 30.6 27.1 - 32.0 pg [facility] Mean Cell Hemoglobin Concentration 33.8 31.7 - 35.0 g/dL [facility] Platelet 93(L) 145 - 357 x10(3)/[facility] LABORATORY RDW Standard Deviation 42.5 37.0 - 46.0 [facility] LABORATORY RDW coefficient of variation 12.9 11.5 - 14.1 % [facility] Mean Platelet Volume 11.8 7.6 - 12.9 fL [facility] NRBC% auto 0.0 % [facility] NRBC Absolute 0.000 0.000 - 0.000 x10(3)/mcL [facility] Blood 11/29/2021 11:0 4 AM EDT 11/29/2021 11:12 AM EDT Narrative Resulting Agency Comment Spec In Lab Mollyjuan a Cui [facility] HEMATOLOGY ORDERAB LES [facility] [place] [address] * (ABNORMAL) Comprehensive metabolic panel (non-fasting) (11/29/2021 11:04 AM EDT) Glucose 122 65 - 199 mg/dL [facility] Comment:Diabetes: >=200 mg/d L plus symptoms Blood Urea Nitrogen 18 8 - 18 mg/dL [facility] Creatinine 0.64(L) 0.70 - 1.20 mg/dL [facility] Sodium 140 135 - 145 mmol/L [facility] Potassium 4.2 3.5 - 5.0 mmol/L [facility] Comment: Please note: ??Patients with WBC >100,000 may have falsely elevated Potassium levels. ??For accurate Potassium quantification in these patients send serum separator tube (gold top) for subsequent determinations. ??Contact the Clinical Chemistry Laboratory if there are any questions. Chloride 101 98 - 107 mmol/L [facility] Carbon Dioxide 27 22 - 31 mmol/L [facility] Anion Gap 12 5 - 15 mmol/L [facility] Calcium 11.0(H) 8.5 - 10.5 mg/dL [facility] Protein, Total 7.4 6.1 - 8.0 g/dL [facility] Albumin 4.5 3.2 - 5.2 g/dL [facility] Aspartate Aminotransferase 32(H) 0 - 30 unit/L [facility] Alanine Aminotransferase 39(H) 0 - 30 unit/L [facility] Alkaline Phosphatase 100 35 - 105 unit/L [facility] Bilirubin, Total 0.9 0.2 - 1.3 mg/dL [facility] Est Glomerular Filtration Rate 89 >=60 mL/min/1. 73 m?? [facility] Comment: This patient's estimated [...] APRN CHEMISTRY ORDERABL ES Performing Organization Address [facility] Co de Phone Number [facility] [place] [phone] * (ABNORMAL) Prothrombin Time (11/29/2021 11:04 AM EDT) Prothrombin Time 13.3(H) 9.4 - 12.5 sec [facility] International Normalization Ratio 1.2 [facility] Comment: An INR [...] APRN HEMATOLOGY ORDERAB LES Performing Organization Address [facility]/ZIP Co de Phone Number [facility] [place] [address] * AFP tumor marker (11/29/2021 11:04 AM EDT) Alpha Fetoprotein 3.2 <=8.3 ng/mL [facility] Comment: This result was generated using a Janet Maylin immunoassay. ??Results obtained from other methods or manufacturers cannot be used interchangeably with this method. Blood 11/29/2021 11:0 4 AM EDT 11/29/2021 11:12 AM EDT Narrative Resulting Agency Comment Spec In Lab Molly Cui APRN CHEMISTRY ORDERABL ES Performing Organization Address [facility] Co de Phone Number [facility] [place] [address] documented in this encounter Visit Diagnoses Diagnosis Hepatic cirrhosis, unspecified hepatic cirrhosis type, unspecified whether ascites present documented in this encounter Care Teams Php Mysql Developer Relationship Specialty Start Date End Date Salome Mcarthur APRN [address] [place] [address] PCP - General Family Medicine 05/30/15 12/11/23 documented as of this encounter
--- OUTSIDE RECORDS SUMMARY | 2024-03-23 12:36 | XMS_ITS | Encounter Summary ---
Author Organization [facility] [place] [address] Care Team Providers Care Tube Washer Name Role Phone Salome Mcarthur APRN Primary Care Provider [phone] Reason for Visit * Reason Comments Medication Refill Encounter Details Date Type Department Care Team (Late Contact Info) Description 04/28/2023 [place]ill [place] [phone] Molly Cui [facility] [place] [address] Gastroesophageal reflux disease without esophagitis Social History [...] 04/28/2024 11:00 AM EST [place] [phone] Molly Cui [facility] [place] [address] 04/28/2024 2:00 PM EST Office [place] [phone] Molly Cui [facility] [place] [address] documented as of this encounter Visit Diagnoses Diagnosis Gastroesophageal reflux disease without esophagitis Esophageal reflux documented in this encounter Care Teams Tube Washer Relationship Specialty Start Date End Date Salome Mcarthur, [employer] [address] [address] PCP - General Family Medicine 05/30/15 12/11/23 documented as of this encounter
--- OUTSIDE RECORDS SUMMARY | 2024-03-23 12:36 | XMS_ITS | Encounter Summary ---
Author Organization [facility] Address [facility] [place] [address] Care Team Providers Care Head Concierge Name Role Phone Salome Mcarthur APRN Primary Care Provider [phone] Encounter Details Date Type Department Care Team (Latest Contact Info) Description 11/29/2021 9:45 AM EDT - 11/29/2021 11:59 PM EDT Hospital Encounter [place] [phone] Molly Wallis ENDS BREAKAGE CLERK [facility] [place] [address] Hepatic cirrhosis, unspecified hepatic cirrhosis type, unspecified [...] directed. 05/02/2020 fluticasone propionate (FLONASE) 50 mcg/actuation [place], Suspension 1 spray daily. pramipexole (MIRAPEX) 0.125 [...] 04/28/2024 11:00 AM EST Appointment [place] [address] Molly Wallis, [facility] [place] [address] 04/28/2024 2:00 PM EST Office Visit [place] [phone] Molly Wallis, [facility] [place] [address] documented as of this encounter Procedures Procedure [...] who have questions, please contact the health acute care occupational therapist that requested your imaging first. ?Avlia Keith, Staff Physician Electronically Signed Final Report ?? 11/29/2021 10:30 am Narrative 11/29/2021 10:30 AM EDT Abdominal ? (Signed Final 11/29/2021 10:30 am) PATIENT INFO: ID #: ? [id number] ?: ??[birth year] (81 yrs)(F) Name: ? MILKA MENDIETA ?Visit Date: 11/29/2021 10:17 am PERFORMED BY: Performed By: ? Dea Mata RDMS Attending: ?Avila Keith MD Referred By: ?MOLLY WALLIS Secondary Phy.: ?? MOLLY WALLIS ENDS BREAKAGE CLERK Location: ? [place] SERVICE(S) PROVIDED: UABDLIMHEP - Hepatology Protocol - Abdominal ?42455 Limited Survey Single Organ or Quadrant - [id number] INDICATIONS: cirrhosis, screen for hcc COMPARISON: US: [...] 11/29/2021 10:30 am) PATIENT INFO: ID #: [id number] : 42 (81 yrs)(F) Name: MILKA MENDIETA Visit Date: 11/29/2021 10:17 am PERFORMED BY: Performed By: Dea Mata RDMS Attending: Avila Keith MD Referred By: MOLLY WALLIS [facility] Phy.: MOLLY WALLIS APRN Location: [place] [facility] - Hep[facility] Protocol - Abdominal 35125 Limited Survey Single Organ or Quadrant - [id number] INDICATIONS: cirrhosis, screen for hcc COMPARISON: US: [...] who have questions, please contact the health acute care occupational therapist that requested your imaging first. Avila Keith, Staff Physician Electronically Signed Final Report 11/29/2021 10:30 am Molly Wallis APRN IMSabino US GEN ORDERAB LES documented in this encounter Visit Diagnoses Diagnosis Hepatic cirrhosis, unspecified hepatic cirrhosis type, unspecified whether ascites present documented in this encounter Care Teams Head Concierge Relationship Specialty Start Date End Date Salome Mcarthur APRN [address] [place] [address] PCP - General Family Medicine 05/30/15 12/11/23 documented as of this encounter
--- OUTSIDE RECORDS SUMMARY | 2024-03-23 12:36 | XMS_ITS | Encounter Summary ---
[facility] [place] [address] Care Team Providers Care Sign Language Interpreter Name Role Phone Salome Mcarthur APRN Primary Care Provider [phone] Encounter Details Date Type Department Care Team (Late st Contact Info) Description 01/08/2022 Telephone [place] [address] Светлана Henry Social History Tobacco [...] calls can be handled by: Any procedure computer architect documented in this encounter Plan of Treatment Upcoming Encounters Date Type Department Care Team (Late st Contact Info) Description 04/28/2024 11:00 AM EST [place] [address] Molly Cui APRN [facility] [place] [address] 04/28/2024 2:00 PM EST Office [place] [address] Molly Cui APRN [facility] [place] [address] documented as of this encounter Visit Diagnoses Not on filedocumented in this encounter Care Teams Sign Language Interpreter Relationship Specialty Start Date End Date Salome Mcarthur APRN [address] [place] [address] PCP - General Family Medicine 05/30/15 12/11/23 documented as of this encounter
--- OUTSIDE RECORDS SUMMARY | 2024-03-23 12:36 | XMS_ITS | Encounter Summary ---
Author Organization [facility] [place] [address] Care Team Providers Care Sole Stitcher Hand Name Role Phone Salome Mcarthur APRN Primary Care Provider [phone] Encounter Details Date Type Department Care Team [...] 04/28/2024 11:00 AM [place] [address] Molly Cui INDUSTRIAL AERIAL INSTALLER [facility] [place] [address] 04/28/2024 2:00 PM EST Office [place] [address] Molly Cui [facility] [place] [place] [address] documented as of this encounter Visit Diagnoses Not on filedocumented in this encounter Care Teams Sole Stitcher Hand Relationship Specialty Start Date End Date Salome Mcarthur APRN [address] [address] PCP - General Family Medicine 05/30/15 12/11/23 documented as of this encounter
--- OUTSIDE RECORDS SUMMARY | 2024-03-23 12:36 | XMS_ITS | Encounter Summary ---
Author Organization [facility] [place] [address] Care Team Providers Care Implementation Director Name Role Phone Salome Mcarthur APRN Primary Care Provider [phone] Encounter Details Date Type Department Care Team (Latest Contact Info) Description 08/08/2023 12:35 PM EDT Laboratory Appointment Lab [address] [place] [address] Hepatic cirrhosis, unspecified hepatic cirrhosis [...] 04/28/2024 11:00 AM EST Appointment [place] [address] Molly Cui [facility] [place] [address] 04/28/2024 2:00 PM EST Office Visit [place] [address] Molly Cui [facility] [place] [address] documented as of this encounter [...] 12:19 PM EDT) Neutrophil % 63.4 % [facility] Neutrophil Absolute 3.44 1.70 - 6.10 x10(3)/[facility] LABORATORY Lymph % 24.0 % [facility] Lymphocytes Abs 1.3 0.9 - 3.2 x10(3)/[facility] LABORATORY Monocyte % 10.1 % [facility] Monocyte Abs 0.6 0.3 - 0.9 x10(3)/[facility] LABORATORY Eos % 1.5 % [facility] Eosinophils Abs 0.1 0.0 - 0.4 x10(3)/[facility] LABORATORY Basophil % 0.6 % [facility] Baso Absolute 0.0 0.0 - 0.1 x10(3)/[facility] LABORATORY Immature Gran % 0.40 % [facility] Comment: Immature granulocytes(IG's)percentage and absolute count will include metamyelocytes, myelocytes, and promyelocytes. Blood smears from CBCs yielding IG's will be scanned manually for concordance. If this scan disagrees with the automated IG or if promyelocytes are noted, a manual differential will be performed. Immature Gran Absolute 0.02 0.00 - 0.04 x10(3)/[facility] LABORATORY Blood 08/08/2023 12:1 9 PM EDT 08/08/2023 12:41 PM EDT Narrative Resulting Agency Comment Spec In Lab Molly Cui APRN HEMATOLOGY ORDERAB LES [facility] [place] [address] * (ABNORMAL) Hemogram (08/08/2023 12:19 PM EDT) White Blood Cell 5.4 4.0 - 9.5 x10(3)/[facility] LABORATORY Red Blood Cell 4.15 4.00 - 5.21 x10(6)/[facility] LABORATORY Hemoglobin 12.8 11.7 - 15.5 g/dL [facility] Hematocrit 38.5 35.7 - 45.8 % [facility] Mean Cell Volume 92.8 82.6 - 94.4 [facility] LABORATORY Mean Cell Hemoglobin 30.8 27.1 - 32.0 pg [facility] Mean Cell Hemoglobin Concentration 33.2 31.7 - 35.0 g/dL [facility] Platelet 78(L) 145 - 357 x10(3)/[facility] LABORATORY RDW Standard Deviation 45.4 37.0 - 46.0 [facility] LABORATORY RDW coefficient of variation 13.3 11.5 - 14.1 % [facility] Mean Platelet Volume 12.1 7.6 - 12.9 [facility] LABORATORY NRBC% auto 0.0 % [facility] NRBC Absolute 0.000 0.000 - 0.000 x10(3)/[facility] LABORATORY Blood 08/08/2023 12:1 9 PM EDT 08/08/2023 12:41 PM EDT Narrative Resulting Agency Comment Spec In Lab Mollyjuan a Cui [facility] HEMATOLOGY ORDERAB LES [facility] [place] [address] * (ABNORMAL) Comprehensive metabolic panel (non-fasting) (08/08/2023 12:19 PM EDT) Glucose 110 65 - 199 mg/dL [facility] Comment:Diabetes: >=200 mg/d L plus symptoms Blood Urea Nitrogen 19(H) 8 - 18 mg/dL [facility] Creatinine 0.72 0.70 - 1.20 mg/dL [facility] Sodium 144 135 - 145 mmol/L [facility] Potassium 4.1 3.5 - 5.0 mmol/L [facility] Comment: Please note: ??Patients with WBC >100,000 may have falsely elevated Potassium levels. ??For accurate Potassium quantification in these patients send serum separator tube (gold top) for subsequent determinations. ??Contact the Clinical Chemistry Laboratory if there are any questions. Chloride 101 98 - 107 mmol/L [facility] Carbon Dioxide 28 22 - 31 mmol/L [facility] Anion Gap 15 5 - 15 mmol/L [facility] Calcium 10.0 8.5 - 10.5 mg/dL [facility] Protein, Total 7.0 6.1 - 8.0 g/dL [facility] Albumin 4.2 3.2 - 5.2 g/dL [facility] Aspartate Aminotransferase 34(H) 0 - 30 unit/L [facility] Alanine Aminotransferase 33(H) 0 - 30 unit/L [facility] Alkaline Phosphatase 121(H) 35 - 105 unit/L [facility] Bilirubin, Total 0.5 0.2 - 1.3 mg/dL [facility] Est Glomerular Filtration Rate 83 >=60 mL/min/1. 73 m?? [facility] Comment: This patient's estimated [...] APRN CHEMISTRY ORDERABL ES Performing Organization Address [facility] Co de Phone Number [facility] [place] [address] * Prothrombin Time (08/08/2023 12:19 PM EDT) Prothrombin Time 12.2 9.4 - 12.5 sec [facility] International Normalization Ratio 1.1 [facility] Comment: An INR [...] APRN HEMATOLOGY ORDERAB LES Performing Organization Address [facility]/ZIP Co de Phone Number [facility] [place] [address] documented in this encounter Visit Diagnoses Diagnosis Hepatic cirrhosis, unspecified hepatic cirrhosis type, unspecified whether ascites present documented in this encounter Care Teams Implementation Director Relationship Specialty Start Date End Date Salome Mcarthur, HOUSECLEANER [address] [place] [address] PCP - General Family Medicine 05/30/15 12/11/23 documented as of this encounter
--- OUTSIDE RECORDS SUMMARY | 2024-03-23 12:36 | XMS_ITS | Encounter Summary ---
Author Organization [facility] [place] [address] Care Team Providers Care Rn Hemodialysis Charge Name Role Phone Salome Mcarthur APRN Primary Care Provider [phone] Encounter Details Date Type Department Care Team (Latest Contact Info) Description 09/12/2021 Trans[place] [address] Salome Mcarthur APRN [address] [place], [place] [id number] Type II diabetes mellitus with neurological manifestations; [...] 04/28/2024 11:00 AM [place] [address] Molly Cui JAVASCRIPT ENGINEER [facility] [place] [address] 04/28/2024 2:00 PM EST Office [place] [address] Molly Cui JAVASCRIPT ENGINEER [facility] [place] [address] documented as of this encounter Visit Diagnoses Diagnosis Type II diabetes mellitus with neurological manifestations Type II or unspecified type diabetes mellitus with neurological manifestations, not stated as uncontrolled Microalbuminuria Proteinuria Florid cirrhosis Alcoholic cirrhosis of liver Encephalopathy, unspecified documented in this encounter Care Teams Rn Hemodialysis Charge Relationship Specialty Start Date End Date Salome Mcarthur APRN [address] [place] [address] PCP - General Family Medicine 05/30/15 12/11/23 documented as of this encounter
--- OUTSIDE RECORDS SUMMARY | 2024-03-23 12:36 | XMS_ITS | Encounter Summary ---
[facility] Organization [facility] [place] [address] Care Team Providers Care Tongue Presser Name Role Phone Salome Mcarthur APRN Primary Care Provider [phone] Reason for Visit * Auth/Cert Specialty Diagnoses / Procedures Referred By Jose bermudez Referred To Contact Diagnoses cirrhosis with varices, reassess. EGD ordered 05/2021 but not scheduled yet, new order with higher urgency placed. Procedures PRO UPPER GI ENDOSCOPY, DIAGNOSTIC EGD, UPPER GI ENDOSCOPY Ml Ayala MD [facility] [place] [address] [facility] Referral ID Status Reason Start Date Expiration Date Visits Re quested Visits Authorized [id number] 1 1 Encounter Details Date Type Department Care Team (Latest Contact Info) Description 01/31/2022 10:28 AM EDT - 01/31/2022 1:41 PM EDT Hospital Encounter [place] [address] Leland Ramos MD [facility] [place] [address] Discharge Disposition: Home Social History Tobacco Use [...] the day after the procedure, use an xlnn-bdu-qojefkj spray to numb your throat. Sucking on [...] occurs, please contact your Doctor. Please call [phone] before 8pm Mon-Fri with problems, questions or concerns. If you call after 8pm or on weekends, call the Hospital at [phone] and ask to speak to the Lead Business Systems Analyst customer operations associate and the lacing operator will contact that person for you. When should you call for help? Call [phone] anytime you think you may need emergency [...] any problems. Where can you learn more? [facility] View your After Visit Summary and more online at [email or web address] If you would like to [...] cost to you. Content Version: 12.2 ?? [id number] [facility]. Care instructions adapted under license by [facility]. If you have questions about a medical condition or this instruction, always ask your healthcare professional. [employer], [employer] disclaims any warranty or liability for your [...] directed. 05/02/2020 fluticasone propionate (FLONASE) 50 mcg/actuation [place], Suspension 1 spray daily. pramipexole (MIRAPEX) 0.125 [...] 04/28/2024 11:00 AM EST Appointment [place] [address] Molly Cui, [facility] [place] [address] 04/28/2024 2:00 PM EST Office Visit [place] [address] Molly Cui, [facility] [place] [address] documented as of this encounter Procedures Procedure Name Priority Date/Time Associated Diagnosis Comments Upper GI Endoscopy, Diagnostic (64990) 01/31/2022 11:11 AM EDT Hepatic cirrhosis, unspecified hepatic cirrhosis type, unspecified whether ascites present POCT GLUCOSE Routine 01/31/2022 10:51 AM EDT UPPER GI ENDOSCOPY Routine 01/31/2022 10 :36 AM EDT documented in this encounter Results * POCT Glucose (01/31/2022 10:51 AM EDT) Glucose, POC 123 65 - 199 mg/dL [facility] Comment: Supplemental ranges: <140 mg/dL before meals <180 mg/dL all other times of the day Blood 01/31/2022 10:5 1 AM EDT 01/31/2022 10:51 AM EDT Leland Ramos MD POINT OF CARE TEST O RDERABLES Performing Organization Address [facility]/ZIP Co de Phone Number [facility] [place] [place] [address] * UPPER GI ENDOSCOPY (01/31/2022 10:36 AM EDT) [facility] UPPER GI ENDOSCOPY [facility] Endoscopy Procedure Date: 01/31/2022 10:36 AM ? Patient Name: Milka Corbett ? N: [id number] ? Date of : 1940 ? Age: 81 ? Order #: [id number] ? Instrument Name: [id number] ? Procedure: ? Upper GI endoscopy Indications: [...] ? physician, the nurse and the ? food equipment service technician in the pre-procedure ? area in [...] performed the entire procedure. ? _ Leland SridharMelida Ramos, 01/31/2022 12:38:07 PM Number of Addenda: [...] RN) documented in this encounter Care Teams Tongue Presser Relationship Specialty Start Date End Date Salome Mcarthur, LORETO [address] [place] [address] PCP - General Family Medicine 05/30/15 12/11/23 documented as of this encounter
--- OUTSIDE RECORDS SUMMARY | 2024-03-23 12:36 | XMS_ITS | Encounter Summary ---
Author Organization [facility] Address [facility] [place] [address] Care Team Providers Care Special Events Director Name Role Phone Salome Mcarthur APRN Primary Care Provider [phone] Encounter Details Date Type Department Care Team (Latest Contact Info) Description 06/06/2022 11:07 AM EST - 06/06/2022 11:59 PM [facility] Hospital [place] [id number] Molly Wallis SPECIAL NEEDS CHILD CAREGIVER [facility] [place] [address] Hepatic cirrhosis, unspecified hepatic cirrhosis type, unspecified [...] directed. 05/02/2020 fluticasone propionate (FLONASE) 50 mcg/actuation [place], Suspension 1 spray daily. pramipexole (MIRAPEX) 0.125 [...] 04/28/2024 11:00 AM EST [place] [address] Molly Wallis, [facility] [address] 04/28/2024 2:00 PM EST Office Visit Gastroenterology at [facility] [place] [address] Molly Wallis, [facility] [place] [address] documented as of this encounter Procedures Procedure [...] who have questions, please contact the health memory care program director that requested your imaging first. ? Avila Keith, Staff Physician Electronically Signed Final Report ?? 06/06/2022 11:54 am Narrative 06/06/2022 11:55 AM EST Abdominal ? (Signed Final 06/06/2022 11:54 am) PATIENT INFO: ID #: ? [id number] ?: ??[birth year] (81 yrs)(F) Name: ? MILKA MENDIETA ?Visit Date: 06/06/2022 11:20 am PERFORMED BY: Attending: ?Avila Keith MD Performed By: ? Sosa Joshi RDMS Referred By: ?MOLLY WALLIS Secondary Phy.: ?? MOLLY WALLIS SPECIAL NEEDS CHILD CAREGIVER Location: ? [place] [facility] Protocol - Abdominal ?10890 Limited Survey Single Organ or Quadrant - [id number] INDICATIONS: cirrhosis, screen for hcc ------ LIVER: [...] 06/06/2022 11:54 am) PATIENT INFO: ID #: [id number] : [birth year] (81 yrs)(F) Name: MILKA MENDIETA Visit Date: 06/06/2022 11:20 am PERFORMED BY: Attending: Avila Keith MD Performed By: Sosa Joshi RDMS Referred By: MOLLY WALLIS [facility] Phy.: MOLLY WALLIS APRN Location: [place] SERVICE(S) PROVIDED: [facility] - Hepatology Protocol - Abdominal 34064 Limited Survey Single Organ or Quadrant - [id number] INDICATIONS: cirrhosis, screen for hcc ------ LIVER: [...] who have questions, please contact the health memory care program director that requested your imaging first. Avila Keith, Staff Physician Electronically Signed Final Report 06/06/2022 11:54 am Molly Wallis APRN IMG US GEN ORDERAB LES documented in this encounter Visit Diagnoses Diagnosis Hepatic cirrhosis, unspecified hepatic cirrhosis type, unspecified whether ascites present documented in this encounter Care Teams Special Events Director Relationship Specialty Start Date End Date Salome Mcarthur, SPECIAL NEEDS CHILD CAREGIVER [address] [place] [address] PCP - General Family Medicine 05/30/15 12/11/23 documented as of this encounter
--- OUTSIDE RECORDS SUMMARY | 2024-03-23 12:37 | XMS_ITS | Encounter Summary ---
Author Organization [facility] [place] [address] Care Team Providers Care Property Preservation Specialist Name Role Phone Salome Mcarthur APRN Primary Care Provider [phone] Encounter Details Date Type Department Care Team (Late st Contact Info) Description 06/01/2021 12:00 PM EST Office [place] [phone] Lani Wallis APRN [facility] [place] [address] Hepatic cirrhosis, unspecified hepatic cirrhosis type, unspecified [...] daily. ??? fluticasone propionate (FLONASE) 50 mcg/actuation [place], Suspension 1 spray daily. ??? pramipexole (MIRAPEX) [...] Vitals: 06/01/21 1138 BP: 141/59 BP [facility] Right arm Patient Position: Sitting BP Cuff [...] Wallis APRN Section of Gastroenterology [place] [address] Copy: Salome Mcarthur APRN [address] / [place] [address] Time spent reviewing records prior to this [...] 04/28/2024 11:00 AM EST Appointment [place] [address] Lani Walils APRN [facility] [place] [address] 04/28/2024 2:00 PM EST Office [place] [address] Lani Wallis APRN [facility] [place] [address] documented as of this encounter Results * AFP tumor marker (11/29/2021 11:04 AM EDT) Pathologist [facility] Alpha Fetoprotein 3.2 <=8.3 ng/mL [facility] Comment: This result was generated using a Janet Maylin immunoassay. ??Results obtained from other methods or manufacturers cannot be used interchangeably with this method. Blood 11/29/2021 11:0 4 AM EDT 11/29/2021 11:12 AM EDT Narrative Resulting Agency Comment Spec In Lab Lani Wallis APRN CHEMISTRY ORDERABL ES Performing Organization Address [facility] Co de Phone Number [facility] [place] [address] * (ABNORMAL) Prothrombin Time (11/29/2021 11:04 AM EDT) Pathologist [facility] Prothrombin Time 13.3(H) 9.4 - 12.5 sec [facility] International Normalization Ratio 1.2 [facility] Comment: An INR [...] Lab Lani Wallis APRN HEMATOLOGY ORDERAB LES Performing Organization Address [facility]/ZIP Co de Phone Number [facility] [place] [address] * (ABNORMAL) Comprehensive metabolic panel (non-fasting) (11/29/2021 11:04 AM EDT) Glucose 122 65 - 199 mg/dL [facility] Comment:Diabetes: >=200 mg/d L plus symptoms Blood Urea Nitrogen 18 8 - 18 mg/dL [facility] Creatinine 0.64(L) 0.70 - 1.20 mg/dL [facility] Sodium 140 135 - 145 mmol/L [facility] Potassium 4.2 3.5 - 5.0 mmol/L [facility] Comment: Please note: ??Patients with WBC >100,000 may have falsely elevated Potassium levels. ??For accurate Potassium quantification in these patients send serum separator tube (gold top) for subsequent determinations. ??Contact the Clinical Chemistry Laboratory if there are any questions. Chloride 101 98 - 107 mmol/L [facility] Carbon Dioxide 27 22 - 31 mmol/L [facility] Anion Gap 12 5 - 15 mmol/L [facility] Calcium 11.0(H) 8.5 - 10.5 mg/dL [facility] Protein, Total 7.4 6.1 - 8.0 g/dL [facility] Albumin 4.5 3.2 - 5.2 g/dL [facility] Aspartate Aminotransferase 32(H) 0 - 30 unit/L [facility] Alanine Aminotransferase 39(H) 0 - 30 unit/L [facility] Alkaline Phosphatase 100 35 - 105 unit/L [facility] Bilirubin, Total 0.9 0.2 - 1.3 mg/dL [facility] Est Glomerular Filtration Rate 89 >=60 mL/min/1. 73 m?? [facility] Comment: This patient's estimated GFR [...] Resulting Agency Comment Spec In Lab Lani Sharron Wallis APRN CHEMISTRY ORDERABL ES [facility] [place] [address] * US Abdomen Limited Hepatology Protocol (11/29/2021 [...] extrahepatic biliary ductal dilation. 3. No ascites. Electronically signed by: Avila Keith MD, [facility] ([phone]), at 11/29/2021 10:23 AM Thank you for letting us participate in the care of this patient. If you are a health care provider and have any questions regarding this report, please contact the number above. For patients who have questions, please contact the health intensive care anaesthetist that requested your imaging first. ?Avila Keith, Staff Physician Electronically Signed Final Report ?? 11/29/2021 10:30 am Narrative 11/29/2021 10:30 AM EDT Abdominal ? (Signed Final 11/29/2021 10:30 am) PATIENT INFO: ID #: ? [id number] ?: ??[birth year] (81 yrs)(F) Name: ? NICK MENDIETA ?Visit Date: 11/29/2021 10:17 am PERFORMED BY: Performed By: ? Esperanza HI, Dea Attending: ?Avila Keith MD Referred By: ?LANI WALLIS Secondary Phy.: ?? LANI WALLIS GUEST RELATION OFFICER Location: ? [place] [facility] - Hep[facility] Protocol - Abdominal ?35231 Limited Survey Single Organ or Quadrant - [id number] INDICATIONS: cirrhosis, screen for hcc COMPARISON: US: [...] 11/29/2021 10:30 am) PATIENT INFO: ID #: [id number] : [birth year] (81 yrs)(F) Name: NICK MENDIETA Visit Date: 11/29/2021 10:17 am PERFORMED BY: Performed By: Dea Mata RDMS Attending: Avila Keith MD Referred By: LANI WALLIS [facility] Phy.: LANI WALLIS APRN Location: [place] [facility]) [facility] - Hepatology Protocol - Abdominal 56965 Limited Survey Single Organ or Quadrant - [id number] INDICATIONS: cirrhosis, screen for hcc COMPARISON: US: [...] extrahepatic biliary ductal dilation. 3. No ascites. Electronically signed by: Avila Keith MD, [facility] ([phone]), at 11/29/2021 10:23 AM Thank you for letting us participate in the care of this patient. If you are a health care provider and have any questions regarding this report, please contact the number above. For patients who have questions, please contact the health intensive care anaesthetist that requested your imaging first. Avila Keith, Staff Physician Electronically Signed Final Report 11/29/2021 10:30 am Lani Wallis APRN IMG US GEN ORDERAB LES documented in this encounter Visit Diagnoses Diagnosis Hepatic cirrhosis, unspecified hepatic cirrhosis type, unspecified whether ascites present Hepatic cirrhosis, unspecified hepatic cirrhosis type, unspecified whether ascites present documented in this encounter Care Teams Property Preservation Specialist Relationship Specialty Start Date End Date Salome Mcarthur APRN [address] [place] [address] PCP - General Family Medicine 05/30/15 12/11/23 documented as of this encounter
--- OUTSIDE RECORDS SUMMARY | 2024-03-23 12:37 | XMS_ITS | Encounter Summary ---
Author Organization [facility] [place] [address] Care Team Providers Care Barber Name Role Phone Salome Mcarthur APRN Primary Care Provider [phone] Encounter Details Date Type Department Care Team (Late st Contact Info) Description 06/16/2019 Telephone Gastroenterology at [facility] [place] [address] Emma Chavis Social History Tobacco Use Types [...] - 06/16/2019 10:15 AM EDT Milka Corbett [id number] Diagnosis/Indication: variceal screening 1. Have you ever [...] to patient: You must have a responsible democrat who will drive you to your procedure, stay [place] for the entire duration of your procedure, and drive you home from your procedure? Height: 5'1 Weight: 142 BMI: 26.8 Age:78 y.o. documented in this encounter Plan of Treatment Upcoming Encounters Date Type Department Care Team (Late st Contact Info) Description 04/28/2024 11:00 AM [place] [address] Molly Cui, [facility] [place] [address] 04/28/2024 2:00 PM EST Office [place] [address] Molly Cui, [facility] [place] [address] documented as of this encounter Visit Diagnoses Not on filedocumented in this encounter Care Teams Barber Relationship Specialty Start Date End Date Salome Mcarthur APRN [address] [place] [address] PCP - General Family Medicine 05/30/15 12/11/23 documented as of this encounter
--- OUTSIDE RECORDS SUMMARY | 2024-03-23 12:37 | XMS_ITS | Encounter Summary ---
Author Organization [facility] [place] [address] Care Team Providers Care Emergency Department Nurse Name Role Phone Salome Mcarthur APRN Primary Care Provider [phone] Encounter Details Date Type Department Care Team (Latest Contact Info) Description 10/29/2019 3:15 PM EDT Laboratory Appointment Lab [address] [place] [address] Hepatic cirrhosis, unspecified hepatic cirrhosis [...] 04/28/2024 11:00 AM EST [place] [address] Molly Cui [facility] [place] [address] 04/28/2024 2:00 PM EST Office [place] [address] Molly Cui [facility] [place] [address] documented as of this encounter [...] 3:13 PM EDT) Neutrophil % 55.9 % [facility] Neutrophil Absolute 4.08 1.70 - 6.10 x10(3)/[facility] Lymph % 33.9 % [facility] Lymphocytes Abs 2.5 0.9 - 3.2 x10(3)/[facility] Monocyte % 7.9 % [facility] Monocyte Abs 0.6 0.3 - 0.9 x10(3)/[facility] Eos % 1.9 % [facility] Eosinophils Abs 0.1 0.0 - 0.4 x10(3)/[facility] Basophil % 0.3 % [facility] Baso Absolute 0.0 0.0 - 0.1 x10(3)/[facility] Immature Gran % 0.10 % [facility] Comment: Immature granulocytes(IG's)percentage and absolute count will include metamyelocytes, myelocytes, and promyelocytes. Blood smears from CBCs yielding IG's will be scanned manually for concordance. If this scan disagrees with the automated IG or if promyelocytes are noted, a manual differential will be performed. Immature Gran Absolute 0.01 0.00 - 0.04 x10(3)/mcL [facility] Blood specimen (specimen) 10/29/2019 3:13 PM EDT 10/29/2019 3:22 PM EDT Narrative Resulting Agency Comment Spec In Lab Molly Cui APRN HEMATOLOGY ORDERAB LES [facility] [place] [address] * (ABNORMAL) Hemogram (10/29/2019 3:13 PM EDT) White Blood Cell 7.3 4.0 - 9.5 x10(3)/mc L [facility] Red Blood Cell 4.42 4.00 - 5.21 x10(6)/mc L [facility] Hemoglobin 13.5 11.7 - 15.5 gm/dL [facility] Hematocrit 40.5 35.7 - 45.8 % [facility] Mean Cell Volume 91.6 82.6 - 94.4 fL [facility] Mean Cell Hemoglobin 30.5 27.1 - 32.0 pg [facility] Mean Cell Hemoglobin Concentration 33.3 31.7 - 35.0 gm/dL [facility] Platelet 122(L) 145 - 357 x10(3)/mc L [facility] RDW Standard Deviation 43.3 37.0 - 46.0 [facility] RDW coefficient of variation 12.9 11.5 - 14.1 % [facility] Mean Platelet Volume 11.3 7.6 - 12.9 fL [facility] NRBC% auto 0.0 % [facility] NRBC Absolute 0.000 0.000 - 0.000 x10(3)/mc L [facility] Blood specimen (specimen) 10/29/2019 3:13 PM EDT 10/29/2019 3:22 PM EDT Narrative Resulting Agency Comment Spec In Lab Mollyjuan a Cui PLASTIC FABRICATOR HEMATOLOGY ORDERAB LES [facility] [place] [address] * (ABNORMAL) Comprehensive metabolic panel (non-fasting) (10/29/2019 3:13 PM EDT) Glucose 116 65 - 199 mg/dL [facility] Comment:Diabetes: >=200 mg/d L plus symptoms Blood Urea Nitrogen 19(H) 8 - 18 mg/dL [facility] Creatinine 0.67(L) 0.70 - 1.20 mg/dL [facility] Sodium 140 135 - 145 mmol/L [facility] Potassium 4.2 3.5 - 5.0 mmol/L [facility] Comment: Please note: ??Patients with WBC >100,000 may have falsely elevated Potassium levels. ??For accurate Potassium quantification in these patients send serum separator tube (gold top) for subsequent determinations. ??Contact the Clinical Chemistry Laboratory if there are any questions. Chloride 98 98 - 107 mmol/L [facility] Carbon Dioxide 27 22 - 31 mmol/L [facility] Anion Gap 15 5 - 15 mmol/L [facility] Calcium 9.9 8.5 - 10.5 mg/dL [facility] Protein, Total 7.0 6.1 - 8.0 gm/dL [facility] Albumin 4.4 3.2 - 5.2 gm/dL [facility] Aspartate Aminotransferase 28 0 - 30 unit/L [facility] Alanine Aminotransferase 37(H) 0 - 30 unit/L [facility] Alkaline Phosphatase 73 35 - 105 unit/L [facility] Bilirubin, Total 0.6 0.2 - 1.3 mg/dL [facility] Est Glomerular Filtration Rate 84 >=60 mL/min/1. 73 m?? [facility] Comment: The eGFR was calculated using the CKD-EPI equation. As with all creatinine based estimates of kidney function, eGFR values calculated with the CKD-EPI equation are not accurate in patients with acute kidney failure, extremes of body mass or the acutely ill. http://Wink/[facility] BUFFALOnkf eGFR 98 >=60 mL/min/1. 73 m?? [facility] Comment: The eGFR was calculated using the CKD-EPI equation. As with all creatinine based estimates of kidney function, eGFR values calculated with the CKD-EPI equation are not accurate in patients with acute kidney failure, extremes of body mass or the acutely ill. http://Wink/[facility]FFALOnkf Blood specimen (specimen) 10/29/2019 3:13 PM EDT 10/29/2019 3:22 PM EDT Narrative Resulting Agency Comment Spec In Lab Molly Cui APRN CHEMISTRY ORDERABL ES Performing Organization Address [facility] Co de Phone Number [facility] [place] [address] * AFP tumor marker (10/29/2019 3:13 PM EDT) Alpha Fetoprotein 2.9 <=8.3 ng/mL [facility] Blood specimen (specimen) 10/29/2019 3:13 PM EDT 10/29/2019 3:22 PM EDT Narrative Resulting Agency Comment Spec In Lab Molly Cui PLASTIC FABRICATOR CHEMISTRY ORDERABL ES Performing Organization Address [facility] Co de Phone Number [facility] [place] [address] * (ABNORMAL) Prothrombin Time (10/29/2019 3:13 PM EDT) Prothrombin Time 13.1(H) 9.4 - 12.5 sec [facility] International Normalization Ratio 1.1 [facility] Comment: An INR [...] HEMATOLOGY ORDERAB LES [facility] [place] [place] [address] documented in this encounter Visit Diagnoses Diagnosis Hepatic cirrhosis, unspecified hepatic cirrhosis type, unspecified whether ascites present documented in this encounter Care Teams Emergency Department Nurse Relationship Specialty Start Date End Date Salome Mcarthur APRN [address] [place] [address] PCP - General Family Medicine 05/30/15 12/11/23 documented as of this encounter
--- OUTSIDE RECORDS SUMMARY | 2024-03-23 12:37 | XMS_ITS | Encounter Summary ---
Author Organization [facility] [place] [address] Care Team Providers Care Multiple Resaw Operator Name Role Phone Salome Mcarthur APRN Primary Care Provider [phone] Encounter Details Date Type Department Care Team (Late st Contact Info) Description 05/19/2020 12:30 PM EST Office [place] [address] Molly Wallis APRN [facility] [place] [address] Hepatic cirrhosis, unspecified hepatic cirrhosis type, unspecified [...] about moving, but haven't moved out of [place]. She denies any ascites, blood in stool, [...] Apply 1 Application topically as needed. ??? Barry-3 Fatty Acids-Vitamin E (FISH OIL) 1,000 mg [...] of BA cirrhosis (Was followed by Dr. Jhonna White). Cancer (bladder cancer in pt), brother [...] also treating her fatty liver, as well ykra diabetes. 3. Portal hypertension. EGD done last [...] Wallis APRN Section of Gastroenterology [place] [address] Copy: Salome Mcarthur APRN [address] / [place] [address] Time spent reviewing records prior to this [...] 04/28/2024 11:00 AM [place] [address] Molly Wallis APRN [facility] [place] [address] 04/28/2024 2:00 PM EST Office [place] [phone] Molly Wallis APRN [facility] [place] [address] Scheduled Orders Name Type Priority Associated Diagnoses Orde r Schedule ENDOSCOPY CASE REQUEST: EGD, UPPER GI ENDOSCOPY Procedures Routine Hepatic cirrhosis, unspecified hepatic cirrhosis type, unspecified whether ascites present Ordered: 05/19/2020 documented as of this encounter Results * Prothrombin Time (12/06/2020 12:34 PM EDT) Prothrombin Time 11.9 9.4 - 12.5 sec [facility] International Normalization Ratio 1.0 [facility] Comment: An INR [...] Lab Molly Wallis APRN HEMATOLOGY ORDERAB LES [facility] [place] [address] * (ABNORMAL) Comprehensive metabolic panel (non-fasting) (12/06/2020 12:34 PM EDT) Glucose 90 65 - 199 mg/dL [facility] Comment:Diabetes: >=200 mg/d L plus symptoms Blood Urea Nitrogen 23(H) 8 - 18 mg/dL [facility] Creatinine 0.78 0.70 - 1.20 mg/dL [facility] Sodium 141 135 - 145 mmol/L [facility] Potassium 4.4 3.5 - 5.0 mmol/L [facility] Comment: Please note: ??Patients with WBC >100,000 may have falsely elevated Potassium levels. ??For accurate Potassium quantification in these patients send serum separator tube (gold top) for subsequent determinations. ??Contact the Clinical Chemistry Laboratory if there are any questions. Chloride 103 98 - 107 mmol/L [facility] Carbon Dioxide 26 22 - 31 mmol/L [facility] Anion Gap 12 5 - 15 mmol/L [facility] Calcium 10.2 8.5 - 10.5 mg/dL [facility] Protein, Total 6.9 6.1 - 8.0 gm/dL [facility] Albumin 4.2 3.2 - 5.2 gm/dL [facility] Aspartate Aminotransferase 35(H) 0 - 30 unit/L [facility] Alanine Aminotransferase 36(H) 0 - 30 unit/L [facility] Alkaline Phosphatase 82 35 - 105 unit/L [facility] Bilirubin, Total 0.7 0.2 - 1.3 mg/dL [facility] Est Glomerular Filtration Rate 72 >=60 mL/min/1. 73 m?? [facility] Comment: This patient? s estimated [...] Lab Molly Wallis APRN CHEMISTRY ORDERABL ES [facility] [place] [address] * US Abdomen Limited Hepatology Protocol (09/26/2020 [...] questions please contact the health director of career resources that requested your imaging first. Electronically signed by: Meghan Cardozo MD, [facility] ([phone]), at 09/26/2020 11:48 AM Thank you for letting us participate in the care of this patient. If you are a health care provider and have any questions regarding this report, please contact the number below. For patients who have questions, please contact the health director of career resources that requested your imaging first. ??Meghan Cardozo, [facility] & Dept Chair - Rad Electronically Signed Final Report ?? 09/26/2020 11:56 am Narrative 09/26/2020 11:57 AM EDT Abdominal ? (Signed Final 09/26/2020 11:56 am) PATIENT INFO: ID #: ? [id number] ?: ??42 (80 yrs)(F) Name: ? MILKA MENDIETA ?Visit Date: 09/26/2020 11:29 am PERFORMED BY: Performed By: ? Crista Zhong RDMS Attending: ?Juliane GALLO, Meghan Ventura Referred By: ?MOLLY WALLIS Secondary Phy.: ?? MOLLY WALLIS APRN Location: ? [place] SERVICE(S) PROVIDED: [facility] - Hepatology Protocol - Abdominal ? 39989 Limited Survey Single Organ or Quadrant - [id number] INDICATIONS: cirrhosis, screen for hcc COMPARISON: US: [...] 09/26/2020 11:56 am) PATIENT INFO: ID #: [id number] : 42 (80 yrs)(F) Name: MILKA MENDIETA Visit Date: 09/26/2020 11:29 am PERFORMED BY: Performed By: Crista Zhong RDMS Attending: Meghan Cardozo MD Referred By: MOLLY WALLIS [facility] Phy.: MOLLY WALLIS APRN Location: [place] SERVICE[facility]S) [facility] Hepatology Protocol - Abdominal 36996 Limited Survey Single Organ or Quadrant - [id number] INDICATIONS: cirrhosis, screen for hcc COMPARISON: US: [...] questions please contact the health director of career resources that requested your imaging first. Electronically signed by: Meghan Cardozo MD, [facility] ([phone]), at 09/26/2020 11:48 AM Thank you for letting us participate in the care of this patient. If you are a health care provider and have any questions regarding this report, please contact the number below. For patients who have questions, please contact the health director of career resources that requested your imaging first. Meghan Cardozo, [facility] & Dept Chair - Rad Electronically Signed Final Report 09/26/2020 11:56 am Molly GRACE US GEN ORDERAB LES documented in this encounter Visit Diagnoses Diagnosis Hepatic cirrhosis, unspecified hepatic cirrhosis type, unspecified whether ascites present Hepatic cirrhosis, unspecified hepatic cirrhosis type, unspecified whether ascites present documented in this encounter Care Teams Multiple Resaw Operator Relationship Specialty Start Date End Date Salome Mcarthur APRN [address] [place] [address] PCP - General Family Medicine 05/30/15 12/11/23 documented as of this encounter
--- OUTSIDE RECORDS SUMMARY | 2024-03-23 12:37 | XMS_ITS | Encounter Summary ---
Author Organization [place] [address] Care Team Providers Care Ship'S Electronic Warfare Officer Name Role Phone Salome Mcarthur APRN Primary Care Provider [phone] Reason for Referral * Diagnostic Test (Routine) - Closed Specialty Diagnoses / Procedures Referred By Contruth t Referred To Contact Radiology Diagnoses Hepatic cirrhosis, unspecified hepatic cirrhosis type, unspecified whether ascites present Procedures MRI Abdomen wwo Contrast (Generic) Molly Cui APRN [facility] [place] [address] [place] [address] Referral ID Status Reason Start Date Expiration Date V isits Requested Visits Authorized [id number] Closed Specialty Service Requested 03/12/2019 03/11/2020 1 1 Encounter Details Date Type Department Care Team (Late st Contact Info) Description 03/12/2019 12:30 PM EST Office [place] [address] Molly Cui APRN [facility] [place] [address] Hepatic cirrhosis, unspecified hepatic cirrhosis [...] Refill ??? fluticasone propionate (FLONASE) 50 mcg/actuation [place], Suspension 1 spray daily. ??? pramipexole (MIRAPEX) [...] mouth every 4 hours as needed. ??? [place]-3 Fatty Acids-Vitamin E (FISH OIL) 1,000 mg [...] Cui APRN Section of Gastroenterology [place] [address] Copy: Salome Mcarthur APRN [address] / [place] [address] 25 of this 30 minute visit in face to face discussion regarding disease, prognosis and treatment documented in this encounter Plan of Treatment Upcoming Encounters Date Type Department Care Team (Late st Contact Info) Description 04/28/2024 11:00 AM EST [place] [phone] Molly Cui, [facility] [place] [address] 04/28/2024 2:00 PM EST Office [place] [phone] Molly Cui, [facility] [place] [address] documented as of this encounter Results * [...] criteria and documentation are available online at https://www.acr.org/Clinical-Resources/Szdhrofxf-ova-Pnui-Systems/LI-RADS. This report utilizes LI-RADS version 2018. I have personally reviewed the image(s) and the resident's interpretation and agree with the findings, [facility] at 10/30/2019 2:53 PM Thank you [...] criteria and documentation are available online at https://www.acr.org/Clinical-Resources/Vlxwkdhez-hio-Fagn-Systems/LI-RADS.This report utilizes LI-RADS version 2018. I have [...] PM EDT) Alpha Fetoprotein 2.9 <=8.3 ng/mL [facility] Blood specimen (specimen) 10/29/2019 3:13 PM EDT 10/29/2019 3:22 PM EDT Narrative Resulting Agency Comment Spec In Lab Molly Cui APRN CHEMISTRY ORDERABL ES [facility] [place] [address] * (ABNORMAL) Prothrombin Time (10/29/2019 3:13 PM EDT) Prothrombin Time 13.1(H) 9.4 - 12.5 sec [facility] International Normalization Ratio 1.1 [facility] Comment: An INR <2.0 indicates [...] Lab Molly Cui APRN HEMATOLOGY ORDERAB LES [facility] [place] [address] * (ABNORMAL) Comprehensive metabolic panel (non-fasting) (10/29/2019 3:13 PM EDT) Glucose 116 65 - 199 mg/dL [facility] Comment:Diabetes: >=200 mg/d L plus symptoms Blood Urea Nitrogen 19(H) 8 - 18 mg/dL [facility] Creatinine 0.67(L) 0.70 - 1.20 mg/dL [facility] Sodium 140 135 - 145 mmol/L [facility] Potassium 4.2 3.5 - 5.0 mmol/L [facility] Comment: Please note: ??Patients with WBC >100,000 may have falsely elevated Potassium levels. ??For accurate Potassium quantification in these patients send serum separator tube (gold top) for subsequent determinations. ??Contact the Clinical Chemistry Laboratory if there are any questions. Chloride 98 98 - 107 mmol/L [facility] Carbon Dioxide 27 22 - 31 mmol/L [facility] Anion Gap 15 5 - 15 mmol/L [facility] Calcium 9.9 8.5 - 10.5 mg/dL [facility] Protein, Total 7.0 6.1 - 8.0 gm/dL [facility] Albumin 4.4 3.2 - 5.2 gm/dL [facility] Aspartate Aminotransferase 28 0 - 30 unit/L [facility] Alanine Aminotransferase 37(H) 0 - 30 unit/L [facility] Alkaline Phosphatase 73 35 - 105 unit/L [facility] Bilirubin, Total 0.6 0.2 - 1.3 mg/dL [facility] Est Glomerular Filtration Rate 84 >=60 mL/min/1. 73 m?? [facility] Comment: The eGFR was calculated using the CKD-EPI equation. As with all creatinine based estimates of kidney function, eGFR values calculated with the CKD-EPI equation are not accurate in patients with acute kidney failure, extremes of body mass or the acutely ill. http://Lemko/[facility] eGFR 98 >=60 mL/min/1. 73 m?? [facility] Comment: The eGFR was calculated using the CKD-EPI equation. As with all creatinine based estimates of kidney function, eGFR values calculated with the CKD-EPI equation are not accurate in patients with acute kidney failure, extremes of body mass or the acutely ill. http://Lemko/[facility] Blood specimen (specimen) 10/29/2019 3:13 PM EDT 10/29/2019 3:22 PM EDT Narrative Resulting Agency Comment Spec In Lab Molly Cui APRN CHEMISTRY ORDERABL ES [facility] [place] [address] documented in this encounter Visit Diagnoses Diagnosis Hepatic cirrhosis, unspecified hepatic cirrhosis type, unspecified whether ascites present Hepatic cirrhosis, unspecified hepatic cirrhosis type, unspecified whether ascites present documented in this encounter Care Teams Ship'S Electronic Warfare Officer Relationship Specialty Start Date End Date Salome Mcarthur APRN [address] [place] [address] PCP - General Family Medicine 05/30/15 12/11/23 documented as of this encounter
--- OUTSIDE RECORDS SUMMARY | 2024-03-23 12:37 | XMS_ITS | Encounter Summary ---
[place] [address] Care Team Providers Care Mingler Operator Name Role Phone Salome Mcarthur APRN Primary Care Provider [phone] Reason for Referral * Diagnostic Test (Routine) - Closed Specialty Diagnoses / Procedures Referred By Contac t Referred To Contact Radiology Diagnoses Hepatic cirrhosis, unspecified hepatic cirrhosis type, unspecified whether ascites present Procedures MRI Abdomen wwo Contrast (Generic) Molly Cui APRN [facility] [place] [address] [place] [address] Referral ID Status Reason Start Date Expiration Date V isits Requested Visits Authorized [id number] Closed Specialty Service Requested 03/12/2019 03/11/2020 1 1 Reason for Visit * Diagnostic Test (Routine) - Closed Specialty Diagnoses / Procedures Referred By Contac t Referred To Contact Radiology Diagnoses Hepatic cirrhosis, unspecified hepatic cirrhosis type, unspecified whether ascites present Procedures MRI Abdomen wwo Contrast (Generic) Molly Cui APRN [facility] [place] [address] [place] [address] Referral ID Status Reason Start Date Expiration Date V isits Requested Visits Authorized [id number] Closed Specialty Service Requested 03/12/2019 03/11/2020 1 1 Encounter Details Date Type Department Care Team (Latest Contact Info) Description 10/29/2019 3:21 PM EDT - 10/29/2019 11:59 PM EDT Hospital Encounter MRI [place] [facility] [place] [address] Molly Cui APRN [facility] [place] [address] Hepatic cirrhosis, unspecified hepatic cirrhosis type, unspecified [...] protection 06/06/2009 fluticasone propionate (FLONASE) 50 mcg/actuation [place], Suspension 1 spray daily. pramipexole (MIRAPEX) 0.125 [...] 04/28/2024 11:00 AM EST Appointment [place] [phone] Molly Cui, [facility] [place] [address] 04/28/2024 2:00 PM EST Office Visit [place] [phone] Molly Cui, [facility] [place] [address] documented as of this encounter Procedures Procedure [...] criteria and documentation are available online at https://www.acr.org/Clinical-Resources/Wrnambjof-ucr-Bqbo-Systems/LI-RADS. This report utilizes LI-RADS version 2018. I [...] criteria and documentation are available online at https://www.acr.org/Clinical-Resources/Whutuyvtr-uut-Rwnv-Systems/LI-RADS.This report utilizes LI-RADS version 2018. I have [...] mLs documented in this encounter Care Teams Mingler Operator Relationship Specialty Start Date End Date Salome Mcarthur APRN [address] [place] [address] PCP - General Family Medicine 05/30/15 12/11/23 documented as of this encounter
--- OUTSIDE RECORDS SUMMARY | 2024-03-23 12:37 | XMS_ITS | Encounter Summary ---
Author Organization [facility] [place] [address] Care Team Providers Care Gold Leaf Gilder Name Role Phone Salome Mcarthur APRN Primary Care Provider [phone] Encounter Details Date Type Department Care Team (Latest Contact Info) Description 05/19/2020 10:25 AM EST Laboratory Appointment Lab 3L [place] [address] Hepatic cirrhosis, unspecified hepatic cirrhosis [...] 04/28/2024 11:00 AM EST [place] [address] Molly Cui [facility] [place] [address] 04/28/2024 2:00 PM EST Office [place] [address] Molly Cui [facility] [place] [address] documented as of this encounter [...] 10:25 AM EST) Neutrophil % 63.1 % [facility] Neutrophil Absolute 6.16(H) 1.70 - 6.10 x10(3)/mc L [facility] Lymph % 25.5 % [facility] Lymphocytes Abs 2.5 0.9 - 3.2 x10(3)/mc L [facility] Monocyte % 8.1 % [facility] Monocyte Abs 0.8 0.3 - 0.9 x10(3)/mc L [facility] Eos % 2.5 % [facility] Eosinophils Abs 0.2 0.0 - 0.4 x10(3)/mc L [facility] Basophil % 0.5 % [facility] Baso Absolute 0.0 0.0 - 0.1 x10(3)/mc L [facility] Immature Gran % 0.30 % [facility] Comment: Immature granulocytes(IG's)percentage and absolute count will include metamyelocytes, myelocytes, and promyelocytes. Blood smears from CBCs yielding IG's will be scanned manually for concordance. If this scan disagrees with the automated IG or if promyelocytes are noted, a manual differential will be performed. Immature Gran Absolute 0.03 0.00 - 0.04 x10(3)/mc L [facility] Blood specimen (specimen) 05/19/2020 10:25 AM EST 05/19/2020 10:41 AM EST Narrative Resulting Agency Comment Spec In Lab Molly Cui APRN HEMATOLOGY ORDERAB LES [facility] [place] [address] * (ABNORMAL) Hemogram (05/19/2020 10:25 AM EST) White Blood Cell 9.8(H) 4.0 - 9.5 x10(3)/mc L [facility] Red Blood Cell 4.65 4.00 - 5.21 x10(6)/mc L [facility] Hemoglobin 14.1 11.7 - 15.5 gm/dL [facility] Hematocrit 42.8 35.7 - 45.8 % [facility] Mean Cell Volume 92.0 82.6 - 94.4 fL [facility] Mean Cell Hemoglobin 30.3 27.1 - 32.0 pg [facility] Mean Cell Hemoglobin Concentration 32.9 31.7 - 35.0 gm/dL [facility] Platelet 130(L) 145 - 357 x10(3)/mc L [facility] RDW Standard Deviation 43.8 37.0 - 46.0 fL [facility] RDW coefficient of variation 12.9 11.5 - 14.1 % [facility] Mean Platelet Volume 11.8 7.6 - 12.9 fL [facility] NRBC% auto 0.0 % [facility] NRBC Absolute 0.000 0.000 - 0.000 x10(3)/mc L [facility] Blood specimen (specimen) 05/19/2020 10:25 AM EST 05/19/2020 10:41 AM EST Narrative Resulting Agency Comment Spec In Lab Molly Cui [employer] HEMATOLOGY ORDERAB LES [facility] [place] [address] * (ABNORMAL) Comprehensive metabolic panel (non-fasting) (05/19/2020 10:25 AM EST) Glucose 112 65 - 199 mg/dL [facility] Comment:Diabetes: >=200 mg/d L plus symptoms Blood Urea Nitrogen 24(H) 8 - 18 mg/dL [facility] Creatinine 0.78 0.70 - 1.20 mg/dL [facility] Sodium 140 135 - 145 mmol/L [facility] Potassium 4.4 3.5 - 5.0 mmol/L [facility] Comment: Please note: ??Patients with WBC >100,000 may have falsely elevated Potassium levels. ??For accurate Potassium quantification in these patients send serum separator tube (gold top) for subsequent determinations. ??Contact the Clinical Chemistry Laboratory if there are any questions. Chloride 99 98 - 107 mmol/L [facility] Carbon Dioxide 27 22 - 31 mmol/L [facility] Anion Gap 14 5 - 15 mmol/L [facility] Calcium 10.8(H) 8.5 - 10.5 mg/dL [facility] Protein, Total 7.8 6.1 - 8.0 gm/dL [facility] Albumin 4.7 3.2 - 5.2 gm/dL [facility] Aspartate Aminotransferase 23 0 - 30 unit/L [facility] Alanine Aminotransferase 26 0 - 30 unit/L [facility] Alkaline Phosphatase 94 35 - 105 unit/L [facility] Bilirubin, Total 0.7 0.2 - 1.3 mg/dL [facility] Est Glomerular Filtration Rate 73 >=60 mL/min/1. 73 m?? [facility] [...] APRN CHEMISTRY ORDERABL ES Performing Organization Address [facility] Co de Phone Number [facility] [place] [address] * Prothrombin Time (05/19/2020 10:25 AM EST) Prothrombin Time 12.4 9.4 - 12.5 sec [facility] [...] APRN HEMATOLOGY ORDERAB LES Performing Organization Address [facility] Co de Phone Number [facility] [place] [address] documented in this encounter Visit Diagnoses Diagnosis Hepatic cirrhosis, unspecified hepatic cirrhosis type, unspecified whether ascites present documented in this encounter Care Teams Gold Leaf Gilder Relationship Specialty Start Date End Date Salome Mcarthur, [employer] [address] [place] [address] PCP - General Family Medicine 05/30/15 12/11/23 documented as of this encounter
--- OUTSIDE RECORDS SUMMARY | 2024-03-23 12:37 | XMS_ITS | Encounter Summary ---
Author Organization Formerly [facility] Address [facility] [place] [address] Care Team Providers Care Manager Equity Name Role Phone Salome Mcarthur APRN Primary Care Provider [phone]- [phone] Encounter Details Date Type Department Care Team (Latest Contact Info) Description 06/01/2021 9:30 AM EST - 06/01/2021 11:59 PM [facility] Hospital [place] [phone] Lani Wallis SALES PLANNING COORDINATOR [facility] [place] [address] Hepatic cirrhosis, unspecified hepatic cirrhosis type, unspecified [...] directed. 05/02/2020 fluticasone propionate (FLONASE) 50 mcg/actuation [place], Suspension 1 spray daily. pramipexole (MIRAPEX) 0.125 [...] 04/28/2024 11:00 AM [place] [address] Lani Wallis, [facility] [place] [address] 04/28/2024 2:00 PM EST Office [place] [address] Lani Wallis, [facility] [address] documented as of this encounter Procedures Procedure [...] who have questions, please contact the health family day care worker that requested your imaging first. ?Marilee Hernández-Pepito, Staff Physician Electronically Signed Final Report ?? 06/01/2021 10:01 am Narrative 06/01/2021 10:02 AM EST Abdominal ? (Signed Final 06/01/2021 10:01 am) PATIENT INFO: ID #: ? [id number] ?: ??42 (80 yrs)(F) Name: ? NICK MENDIETA ?Visit Date: 06/01/2021 09:47 am PERFORMED BY: Performed By: ? Lana Gotti RDMS Attending: ?Betty GALLO, Marilee Ragsdale Referred By: ?LANI WALLIS Secondary Phy.: ?? LANI WALLIS SALES PLANNING COORDINATOR Location: ? [place] SERVICE(S) PROVIDED: UABDLIM - Hepatology Protocol - Abdominal ? 03868 Limited Survey Single Organ or Quadrant - [id number] INDICATIONS: cirrhosis, screen for hcc ------ LIVER: [...] 06/01/2021 10:01 am) PATIENT INFO: ID #: [id number] : 42 (80 yrs)(F) Name: NICK MENDIETA Visit Date: 06/01/2021 09:47 am PERFORMED BY: Performed By: Lana Gotti RDMS Attending: Marilee Hernández MD Referred By: LANI WALLIS Secondary Phy.: LANI WALLIS APRN Location: [place] [facility] Hep[facility] Protocol - Abdominal 12796 Limited Survey Single Organ or Quadrant - [id number] INDICATIONS: cirrhosis, screen for hcc ------ LIVER: [...] who have questions, please contact the health family day care worker that requested your imaging first. Marilee Her, Staff Physician Electronically Signed Final Report 06/01/2021 10:01 am Lani Sharron Wallis APRN IMG GEN ORDERAB LES documented in this encounter Visit Diagnoses Diagnosis Hepatic cirrhosis, unspecified hepatic cirrhosis type, unspecified whether ascites present documented in this encounter Care Teams Manager Equity Relationship Specialty Start Date End Date Salome Mcarthur APRN [address] [place] [address] PCP - General Family Medicine 05/30/15 12/11/23 documented as of this encounter
--- OUTSIDE RECORDS SUMMARY | 2024-03-23 12:37 | XMS_ITS | Encounter Summary ---
Author Organization [facility] [place] [address] Care Team Providers Care Pewter Fabricator Name Role Phone Salome Mcarthur APRN Primary Care Provider +[phone] Encounter Details Date Type Department Care Team (Late st Contact Info) Description 11/02/2019 Orders [place] [phone] Molly Wallis CHIEF TRANSFER AND PUMPHOUSE OPERATOR [facility] [place] [address] Hepatic cirrhosis, unspecified hepatic cirrhosis type, unspecified [...] 04/28/2024 11:00 AM [place] [phone] Molly Wallis CHIEF TRANSFER AND PUMPHOUSE OPERATOR [facility] [place] [address] 04/28/2024 2:00 PM EST Office [place] [phone] Molly Wallis CHIEF TRANSFER AND PUMPHOUSE OPERATORFORMERLY [facility] [place] [address] documented as of this encounter Results * [...] 11:57 am) PATIENT INFO: ID #: ? [id number] ?: ??42 (79 yrs)(F) Name: ? MILKA MENDIETA ?Visit Date: 05/19/2020 11:19 am PERFORMED BY: Performed By: ? Gabi Mtz RDMS Attending: ?Alisha Grove MD. Resident: ? Tacho Guajardo MD Referred By: ?MOLLY WALLIS Secondary Phy.: ?? MOLLY WALLIS CHIEF TRANSFER AND PUMPHOUSE OPERATOR Location: ? [place] SERVICE(S) PROVIDED: ??[facility] - Hepatology Protocol - Abdominal ? 29926 ??Limited Survey Single Organ or Quadrant - ??[id number] INDICATIONS: ??cirrhosis, screen for hcc ------ LIVER: [...] 05/19/2020 11:57 am) PATIENT INFO: ID #: [id number] : 42 (79 yrs)(F) Name: MILKA MENDIETA Visit Date: 05/19/2020 11:19 am PERFORMED BY: Performed By: Gabi Mtz RDMS Attending: Alisha Grove MD Resident: Tacho Guajardo MD Referred By: MOLLY WALLIS [facility] Phy.: MOLLY WALLIS APRN Location: [place] SERVICE(S) [facility]: [facility] - Hepatology Protocol - Abdominal 32951 Limited Survey Single Organ or Quadrant - [id number] INDICATIONS: cirrhosis, screen for hcc ------ LIVER: [...] signed by: Alisha Grove MD, [facility] ([phone]), at 05/19/2020 11:51 AM Alisha Grove, Staff Physician Electronically Signed Final Report 05/19/2020 11:57 am Molly Wallis APRN IMG US GEN ORDERAB LES * Prothrombin Time (05/19/2020 10:25 AM EST) Prothrombin Time 12.4 9.4 - 12.5 sec [facility] International Normalization Ratio 1.1 [facility] Comment: An INR [...] HEMATOLOGY ORDERAB LES [facility] [place] [address] * (ABNORMAL) Comprehensive metabolic panel (non-fasting) (05/19/2020 10:25 AM EST) Glucose 112 65 - 199 mg/dL [facility] Comment:Diabetes: >=200 mg/d L plus symptoms Blood Urea Nitrogen 24(H) 8 - 18 mg/dL [facility] Creatinine 0.78 0.70 - 1.20 mg/dL [facility] Sodium 140 135 - 145 mmol/L [facility] Potassium 4.4 3.5 - 5.0 mmol/L [facility] Comment: Please note: ??Patients with WBC >100,000 may have falsely elevated Potassium levels. ??For accurate Potassium quantification in these patients send serum separator tube (gold top) for subsequent determinations. ??Contact the Clinical Chemistry Laboratory if there are any questions. Chloride 99 98 - 107 mmol/L [facility] Carbon Dioxide 27 22 - 31 mmol/L [facility] Anion Gap 14 5 - 15 mmol/L [facility] Calcium 10.8(H) 8.5 - 10.5 mg/dL [facility] Protein, Total 7.8 6.1 - 8.0 gm/dL [facility] Albumin 4.7 3.2 - 5.2 gm/dL [facility] Aspartate Aminotransferase 23 0 - 30 unit/L [facility] Alanine Aminotransferase 26 0 - 30 unit/L [facility] Alkaline Phosphatase 94 35 - 105 unit/L [facility] Bilirubin, Total 0.7 0.2 - 1.3 mg/dL [facility] Est Glomerular Filtration Rate 73 >=60 mL/min/1. 73 m?? [facility] Comment: This patient? s estimated [...] Lab Molly Wallis APRN CHEMISTRY ORDERABL ES [facility] [place] [address] documented in this encounter Visit Diagnoses Diagnosis Hepatic cirrhosis, unspecified hepatic cirrhosis type, unspecified whether ascites present Hepatic cirrhosis, unspecified hepatic cirrhosis type, unspecified whether ascites present documented in this encounter Care Teams Pewter Fabricator Relationship Specialty Start Date End Date Salome Mcarthur, CHIEF TRANSFER AND PUMPHOUSE OPERATOR [address] [place] [address] PCP - General Family Medicine 05/30/15 12/11/23 documented as of this encounter
--- OUTSIDE RECORDS SUMMARY | 2024-03-23 12:37 | XMS_ITS | Encounter Summary ---
Author Organization Formerly [facility] Address [facility] [place] [address] Care Team Providers Care Gold Stamper Name Role Phone Salome Mcarthur APRN Primary Care Provider Encounter Details Date Type Department Care Team (Latest Contact Info) Description 03/12/2019 10:01 AM EST - 03/12/2019 11:59 PM [facility] Hospital En[place] [phone] Molly Wallis [facility] [place] [address] Hepatic cirrhosis, unspecified hepatic cirrhosis type, unspecified [...] protection 06/06/2009 fluticasone propionate (FLONASE) 50 mcg/actuation [place], Suspension 1 spray daily. pramipexole (MIRAPEX) [...] 500 mg Capsule Take by mouth. 09/23/2019 clonazePAM (KLONOPIN) 0.5 mg Tablet nightly. 02/21/2015 12/20/2023 red yeast rice 600 mg Tab Take 600 mg by mouth 2 times daily. 08/08/2023 amitriptyline (ELAVIL) 50 mg tablet Take 25 mg by mouth nightly. 12/06/2023 documented as of this encounter Plan of Treatment Upcoming Encounters Date Type Department Care Team (Late st Contact Info) Description 04/28/2024 11:00 AM EST Appointment [place] [address] Molly Wallis, [facility] [place] [place] [address] 04/28/2024 2:00 PM EST Office Visit [place] [address] Molly Wallis, HEALTH OUTREACH WORKER [facility] [place] [address] documented as of this encounter Procedures Procedure [...] number below. Electronically signed by: Jean Claude Bautista, [facility] ([phone]), at 03/12/2019 1:48 PM ? Jean Claude Bautista, Staff Physician Electronically Signed Final Report ?? 03/12/2019 01:55 pm Narrative 03/12/2019 1:55 PM EST Abdominal ? (Signed Final 03/12/2019 01:55 pm) PATIENT INFO: ID #: ? [id number] ?: ??42 (78 yrs) Name: ? MILKA KIDDIER ?Visit Date: 03/12/2019 11:07 am PERFORMED BY: Performed By: ? Tigist Castellanos RDMS Attending: ?Lily GALLO, Jean Claude [place] Resident: ? Ruchi GALLO, Kal Montesinos Referred By: ?MOLLY WALLIS Secondary Phy.: ?? MOLLY WALLIS HEALTH OUTREACH WORKER Location: ? [place] SERVICE(S) PROVIDED: ??[facility] - Hepatology Protocol - Abdominal ? 02698 ??Limited Survey Single Organ or Quadrant - ??[id number] INDICATIONS: ??cirrhosis, survey for hcc ------ LIVER: [...] 03/12/2019 01:55 pm) PATIENT INFO: ID #: [id number] : 42 (78 yrs) Name: MILKA MENDIETA Visit Date: 03/12/2019 11:07 am PERFORMED BY: Performed By: Tigist Castellanos RDMS Attending: Jean Claude Bautista MD Resident: Kal Hopper MD Referred By: MOLLY WALLIS [facility] Phy.: MOLLY WALLIS APRN Location: [place] SERVICE(S) PROVIDED: [facility] - Hepatology Protocol - Abdominal 08159 Limited Survey Single Organ or Quadrant - [id number] INDICATIONS: cirrhosis, survey for hcc ------ LIVER: [...] below. Electronically signed by: Jean Claude Bautista [facility] ([phone]), at 03/12/2019 1:48 PM Jean Claude Bautista, Staff Physician Electronically Signed Final Report 03/12/2019 01:55 pm Molly Wallis APRN IMG US GEN ORDERAB LES documented in this encounter Visit Diagnoses Diagnosis Hepatic cirrhosis, unspecified hepatic cirrhosis type, unspecified whether ascites present documented in this encounter Care Teams Gold Stamper Relationship Specialty Start Date End Date Salome Mcarthur APRN [address] [place] [address] PCP - General Family Medicine 05/30/15 12/11/23 documented as of this encounter
--- OUTSIDE RECORDS SUMMARY | 2024-03-23 12:37 | XMS_ITS | Encounter Summary ---
Author Organization [facility] Address [facility] [place] [address] Care Team Providers Care Customs Compliance Specialist Name Role Phone Salome Mcarthur APRN Primary Care Provider +[phone] Encounter Details Date Type Department Care Team (Late st Contact Info) Description 05/26/2020 Telephone [place] [address] Sandra Aguilar Social History Tobacco Use Types [...] - 05/26/2020 10:27 AM EST Milka Corbett [id number] Diagnosis/Indication: cirrhosis, screen for varices. small varices [...] to patient: You must have a responsible constitution party [...] 04/28/2024 11:00 AM EST [place]oint[place] [address] Molly Cui REGISTERED RADIOGRAPHER [facility] [place] [address] 04/28/2024 2:00 PM EST Office [place] [address] Molly Cui REGISTERED RADIOGRAPHER [facility] [place] [address] documented as of this encounter Visit Diagnoses Not on filedocumented in this encounter Care Teams Customs Compliance Specialist Relationship Specialty Start Date End Date Salome Mcarthur APRN [address] [place] [address] PCP - General Family Medicine 05/30/15 12/11/23 documented as of this encounter
--- OUTSIDE RECORDS SUMMARY | 2024-03-23 12:37 | XMS_ITS | Encounter Summary ---
Author Organization [facility] Address [facility] [place] [address] Care Team Providers Care Cocktail Waitress Name Role Phone Salome Mcarthur APRN Primary Care Provider [phone] Encounter Details Date Type Department Care Team (Latest Contact Info) Description 10/30/2019 10:30 AM EDT TH Visit (TeleHealth) [place] [address] Molly Cui APRN [facility] [place] [address] Hepatic cirrhosis, unspecified hepatic cirrhosis type, unspecified [...] Cui APRN Medication Sig Dispense Refill ??? Richard 10 mcg/dose(250 mcg/mL) 2.4 mL Pen Injector ??? lisinopril (PRINIVIL;ZESTRIL) 20 mg Tablet Take 20 mg by mouth daily. ??? fluticasone propionate (FLONASE) 50 mcg/actuation [place], Suspension 1 spray daily. ??? pramipexole (MIRAPEX) [...] mouth as needed. Reported on 08/21/2016 ??? [place]-3 Fatty Acids-Vitamin E (FISH OIL) 1,000 mg [...] Cui APRN Section of Gastroenterology [place] [address] Copy: Salome Mcarthur APRN [address] / my[place]chy [address] Patient verbally consents to this telephone visit [...] 04/28/2024 11:00 AM EST Appointment [place] [address] Molly Cui [facility] [place] [address] 04/28/2024 2:00 PM EST Office Visit [place] [address] Molly Cui [facility] [place] [address] documented as of this encounter Visit Diagnoses Diagnosis Hepatic cirrhosis, unspecified hepatic cirrhosis type, unspecified whether ascites present documented in this encounter Care Teams Cocktail Waitress Relationship Specialty Start Date End Date Salome Mcarthur APRN [address] [place] [address] PCP - General Family Medicine 05/30/15 12/11/23 documented as of this encounter
--- OUTSIDE RECORDS SUMMARY | 2024-03-23 12:37 | XMS_ITS | Encounter Summary ---
Author Organization [facility] Address [facility] [place] [address] Care Team Providers Care Ceramics Instructor Name Role Phone Salome Mcarthur APRN Primary Care Provider [phone] Reason for Visit * Auth/Cert Specialty Diagnoses [...] Expiration Date Visits Re quested Visits Authorized [id number] 1 1 Encounter Details Date Type Department Care Team (Late st Contact Info) Description 09/26/2020 2:30 PM EDT - 09/26/2020 3:00 PM EDT Surgery [place] [address] Braulio Bailey MD [facility] [place] [address] EGD, UPPER GI ENDOSCOPY (WRVU 2.09) Social [...] the day after the procedure, use an wojl-qqk-udjwevb spray to numb your throat. Sucking on [...] occurs, please contact your Doctor. Please call [phone] before 8pm Mon-Fri with problems, questions or concerns. If you call after 8pm or on weekends, call the Hospital at [phone] and ask to speak to the Internal Combustion Engineer art sales consultant and the welding robot operator will contact that person for you. When should you call for help? Call [phone] anytime you think you may need emergency [...] any problems. Where can you learn more? [facility]- View your After Visit Summary and more online at [email or web address] If you would like to provide [...] cost to you. Content Version: 12.2 ?? [id number] [employer]. Care instructions adapted under license by [facility]. If you have questions about a medical condition or this instruction, always ask your healthcare professional. [employer] disclaims any warranty or liability for your [...] directed. 05/02/2020 fluticasone propionate (FLONASE) 50 mcg/actuation [place], Suspension 1 spray daily. pramipexole (MIRAPEX) 0.125 [...] Bailey MD - 09/26/2020 2:33 PM EDT DH Operative Note Patient Name: Milka Corbett : [id number] MR#: [id number] Case Date: 09/26/2020 Surgeon: Surgeon(s) and Role: * Braulio Bailey MD - Primary Procedure(s): EGD, UPPER GI ENDOSCOPY Please see Provation report for details. documented in this encounter Plan of Treatment Upcoming Encounters Date Type Department Care Team (Late st Contact Info) Description 04/28/2024 11:00 AM EST Appointment [place] [address] Molly Cui, [facility] [place] [address] 04/28/2024 2:00 PM EST Office [place] [address] Molly Cui, [facility] [place] [address] documented as of this encounter Procedures Procedure Name Priority Date/Time Associated Diagnosis Comments EGD, UPPER GI ENDOSCOPY (WRVU 2.09) 09/26/2020 2:12 PM EDT Hepatic cirrhosis, unspecified hepatic cirrhosis type, unspecified whether ascites present UPPER GI ENDOSCOPY Routine 09/26/2020 1: 55 PM EDT POCT GLUCOSE Routine 09/26/2020 1:42 PM EDT documented in this encounter Results * UPPER GI ENDOSCOPY (09/26/2020 1:55 PM EDT) [facility] UPPER GI ENDOSCOPY [facility] Endoscopy Procedure Date: 09/26/2020 1:55 PM ? Patient Name: Milka Corbett ? Date of : 1940 ? Age: 80 ? Order #: [id number] ? Instrument Name: [id number] LOANER ? Procedure: ? Upper GI endoscopy [...] Procedure Code(s): ?? --- Professional --- ? 39989, Esophagogastroduod enoscopy, ? flexible, transoral; diagnostic, ? including collection of specimen(s) ? by brushing or washing, when ? performed (separate procedure) Diagnosis Code(s): ?? --- Professional --- ? K29.70, Gastritis, unspecified, ? without bleeding ? 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 --- Technical --- ? K29.70, Gastritis, unspecified, ? without bleeding ? 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 All rights reserved. The codes documented in this report are preliminary and upon medical biller/coder review may be revised to meet current compliance requirements. Attending Participation: ? I personally performed the entire procedure. ? Braulio Bailey, 09/26/2020 2:38:44 PM Number of Addenda: 0 Note Initiated On: 09/26/2020 1:55 PM PROVATION 09/26/2020 1:55 PM EDT Salome Mcarthur MILLING GENERAL SUPERINTENDENT GENERAL SURGICAL OR DERABLES PROVATION * POCT Glucose (09/26/2020 1:42 PM EDT) Glucose, POC 88 65 - 199 mg/dL [facility] Comment: Supplemental ranges: <140 mg/dL before meals <180 mg/dL all other times of the day Blood 09/26/2020 1:42 PM EDT 09/25/2020 12:00 PM EDT Jean Claude Chacon MD POINT OF CARE TEST O RDERABLES [facility] [place] [address] documented in this encounter Visit Diagnoses Diagnosis [...] RN) documented in this encounter Care Teams Ceramics Instructor Relationship Specialty Start Date End Date Salome Mcarthur APRN [address] [place] [address] PCP - General Family Medicine 05/30/15 12/11/23 documented as of this encounter
--- OUTSIDE RECORDS SUMMARY | 2024-03-23 12:37 | XMS_ITS | Encounter Summary ---
Author Organization [facility] [place] [address] Care Team Providers Care Dimension Mill Worker Name Role Phone Salome Mcarthur APRN Primary Care Provider [phone] Encounter Details Date Type Department Care Team (Latest Contact Info) Description 12/06/2020 12:45 PM EDT Laboratory Appointment Lab [address] [place] [address] Hepatic cirrhosis, unspecified hepatic cirrhosis [...] 04/28/2024 11:00 AM EST [place]ment [place] [address] Molly Cui [facility] [place] [address] 04/28/2024 2:00 PM EST Office [place] [address] Molly Cui [facility] [place] [place] [address] documented as of this encounter [...] 12:34 PM EDT) Neutrophil % 50.1 % [facility] Neutrophil Absolute 2.66 1.70 - 6.10 x10(3)/[facility] LAB[facility] Lymph % 36.7 % [facility] Lymphocytes Abs 2.0 0.9 - 3.2 x10(3)/[facility] LABOR[facility]ORY Monocyte % 9.6 % [facility] Monocyte Abs 0.5 0.3 - 0.9 x10(3)/[facility] LABORATORY Eos % 2.6 % [facility] Eosinophils Abs 0.1 0.0 - 0.4 x10(3)/[facility] LABORATORY Basophil % 0.6 % [facility] Baso Absolute 0.0 0.0 - 0.1 x10(3)/[facility] LABORATORY Immature Gran % 0.40 % [facility] Comment: Immature granulocytes(IG's)percentage and absolute count will include metamyelocytes, myelocytes, and promyelocytes. Blood smears from CBCs yielding IG's will be scanned manually for concordance. If this scan disagrees with the automated IG or if promyelocytes are noted, a manual differential will be performed. Immature Gran Absolute 0.02 0.00 - 0.04 x10(3)/mcL [facility] Blood 12/06/2020 12:3 4 PM EDT 12/06/2020 12:44 PM EDT Narrative Resulting Agency Comment Spec In Lab Molly Cui APRN HEMATOLOGY ORDERAB LES [facility] [place] [address] * (ABNORMAL) Hemogram (12/06/2020 12:34 PM EDT) White Blood Cell 5.3 4.0 - 9.5 x10(3)/mc L [facility] Red Blood Cell 3.98(L) 4.00 - 5.21 x10(6)/mc L [facility] Hemoglobin 12.3 11.7 - 15.5 gm/dL [facility] Hematocrit 37.0 35.7 - 45.8 % [facility] Mean Cell Volume 93.0 82.6 - 94.4 [facility] LABORATORY Mean Cell Hemoglobin 30.9 27.1 - 32.0 pg [facility] Mean Cell Hemoglobin Concentration 33.2 31.7 - 35.0 gm/dL [facility] Platelet 93(L) 145 - 357 x10(3)/mc L [facility] RDW Standard Deviation 45.1 37.0 - 46.0 [facility] LABORATORY RDW coefficient of variation 13.2 11.5 - 14.1 % [facility] Mean Platelet Volume 11.4 7.6 - 12.9 [facility] LABORATORY NRBC% auto 0.0 % [facility] NRBC Absolute 0.000 0.000 - 0.000 x10(3)/mc L [facility] Blood 12/06/2020 12:3 4 PM EDT 12/06/2020 12:44 PM EDT Narrative Resulting Agency Comment Spec In Lab Molly Cui LORETO HEMATOLOGY ORDERAB LES [facility] [place] [address] * (ABNORMAL) Comprehensive metabolic panel (non-fasting) (12/06/2020 12:34 PM EDT) Glucose 90 65 - 199 mg/dL [facility] Comment:Diabetes: >=200 mg/d L plus symptoms Blood Urea Nitrogen 23(H) 8 - 18 mg/dL [facility] Creatinine 0.78 0.70 - 1.20 mg/dL [facility] Sodium 141 135 - 145 mmol/L [facility] Potassium 4.4 3.5 - 5.0 mmol/L [facility] Comment: Please note: ??Patients with WBC >100,000 may have falsely elevated Potassium levels. ??For accurate Potassium quantification in these patients send serum separator tube (gold top) for subsequent determinations. ??Contact the Clinical Chemistry Laboratory if there are any questions. Chloride 103 98 - 107 mmol/L [facility] Carbon Dioxide 26 22 - 31 mmol/L [facility] Anion Gap 12 5 - 15 mmol/L [facility] Calcium 10.2 8.5 - 10.5 mg/dL [facility] Protein, Total 6.9 6.1 - 8.0 gm/dL [facility] Albumin 4.2 3.2 - 5.2 gm/dL [facility] Aspartate Aminotransferase 35(H) 0 - 30 unit/L [facility] Alanine Aminotransferase 36(H) 0 - 30 unit/L [facility] Alkaline Phosphatase 82 35 - 105 unit/L [facility] Bilirubin, Total 0.7 0.2 - 1.3 mg/dL [facility] Est Glomerular Filtration Rate 72 >=60 mL/min/1. 73 m?? [facility] [...] APRN CHEMISTRY ORDERABL ES Performing Organization Address [facility] Co de Phone Number [facility] [place] [address] * Prothrombin Time (12/06/2020 12:34 PM EDT) Prothrombin Time 11.9 9.4 - 12.5 sec [facility] International Normalization Ratio 1.0 [facility] Comment: An INR [...] APRN HEMATOLOGY ORDERAB LES Performing Organization Address [facility] Co de Phone Number [facility] [place] [address] documented in this encounter Visit Diagnoses Diagnosis Hepatic cirrhosis, unspecified hepatic cirrhosis type, unspecified whether ascites present documented in this encounter Care Teams Dimension Mill Worker Relationship Specialty Start Date End Date Salome Mcarthur, DELINQUENCY PREVENTION SOCIAL WORKER [address] [place] [address] PCP - General Family Medicine 05/30/15 12/11/23 documented as of this encounter
--- OUTSIDE RECORDS SUMMARY | 2024-03-23 12:37 | XMS_ITS | Encounter Summary ---
Author Organization [facility] [place] [address] Care Team Providers Care Oyster Harvester Name Role Phone Salome Mcarthur APRN Primary Care Provider Reason for Visit * Auth/Cert Specialty Diagnoses / Procedures Referred By Jose t Referred To Contact Diagnoses cirrhosis,screening for varices (IVCS) prep: proclear Procedures PRO UPPER GI ENDOSCOPY, DIAGNOSTIC EGD, UPPER GI ENDOSCOPY Referral ID Status Reason Start Date Expiration Date Visits Re quested Visits Authorized [id number] 1 1 Encounter Details Date Type Department Care Team (Latest Contact Info) Description 09/17/2018 8:19 AM EDT - 09/17/2018 11:25 AM EDT Hospital En[place] [phone] Juliette Chauhan MD [facility] [place] [address] Discharge Disposition: Home Social History Tobacco Use [...] better as expected. Saturday-Saturday Same Day Endo [phone] 7a-8p Otherwise contact [phone] and ask to speak to the interventional radiology technologist business risk consultant Follow-up care is a palomo part of your treatment and safety. Be sure to make and go to all appointments, and call your doctor if you are having problems. Instructions have been reviewed and patient expresses understanding Please call [phone] before 8pm Sat-Sat with problems, questions or concerns. If you call after 8pm or on weekends, call the Hospital at [phone] and ask to speak to the Paleology Professor business risk consultant and the longshore equipment operator will contact that person for you. [...] WHEN SHOULD YOU CALL FOR HELP? Call [phone] anytime you think that you need emergency [...] better as expected. Saturday-Saturday Same Day Endo [phone] 7a-8p Otherwise contact [phone] and ask to speak to the interventional radiology technologist business risk consultant Follow-up care is a palomo part of [...] protection 06/06/2009 fluticasone propionate (FLONASE) 50 mcg/actuation [place], Suspension 1 spray daily. pramipexole (MIRAPEX) 0.125 [...] nightly. 12/06/2023 documented as of this encounter Miscellaneous Notes [...] Electronically signed by: Kehinde Martin Gastroenterology Fellow [facility] Pager [phone] 09/17/2018 documented in this encounter Plan of Treatment Upcoming Encounters Date Type Department Care Team (Late st Contact Info) Description 04/28/2024 11:00 AM [place] [address] Molly Cui, [facility] [place] [address] 04/28/2024 2:00 PM EST Office [place] [phone] Molly Cui, [facility] [place] [address] documented as of this encounter Procedures Procedure Name Priority Date/Time Associated Diagnosis Comments EGD, UPPER GI ENDOSCOPY (WRVU 2.09) 09/17/2018 10:04 AM EDT cirrhosis,screening for varices (IVCS) prep: proclear UPPER GI ENDOSCOPY Routine 09/17/2018 9: 58 AM EDT documented in this encounter Results * UPPER GI ENDOSCOPY (09/17/2018 9:58 AM EDT) UPPER GI ENDOSCOPY [facility] Endoscopy Procedure Date: 09/17/2018 9:58 AM ? Patient Name: Milka Corbett ? Date of : 1940 ? Age: 78 ? Order #: [id number] ? Instrument Name: [id number] ? Procedure: ? Upper GI endoscopy Indications: ? Variceal screening (no known varices ? or prior bleeding) Providers: ? Juliette Chauhan, Bertha Oleary, ? RN, Montrell Ponce, Kehinde Martin MD [...] the physician, the nurse ? and the research technician. The procedure was ? verified in [...] Procedure Code(s): ?? --- Professional --- ? 90034, Esophagogastroduod enoscopy, ? flexible, transoral; diagnostic, ? including collection of specimen(s) ? by brushing or washing, when ? performed (separate procedure) CPT copyright 2017 [employer]. All rights reserved. The codes documented in this report are preliminary and upon pulper operator review may be revised to meet current compliance requirements. Attending Participation: ? I was present and participated during the entire ? procedure, including non-palomo portions. ? Juliette Zoey Tien, 09/17/2018 10:32:25 AM Number of Addenda: 0 Note Initiated On: 09/17/2018 9:58 AM PROVATION 09/17/2018 9:58 AM EDT Salome Mcarthur TRAY ROOM WORKER GENERAL SURGICAL OR DERABLES PROVATION documented in [...] RN) documented in this encounter Care Teams Oyster Harvester Relationship Specialty Start Date End Date Salome Mcarthur, LORETO [address] [place] [address] PCP - General Family Medicine 05/30/15 12/11/23 documented as of this encounter
--- OUTSIDE RECORDS SUMMARY | 2024-03-23 12:37 | XMS_ITS | Encounter Summary ---
Author Organization [facility] [place] [address] Care Team Providers Care Horses Or Mules Teamster Name Role Phone Salome Mcarthur APRN Primary Care Provider [phone] Encounter Details Date Type Department Care Team (Latest Contact Info) Description 03/12/2019 11:30 AM EST Laboratory Appointment Lab [address] [place] [address] Hepatic cirrhosis, unspecified hepatic cirrhosis [...] 04/28/2024 11:00 AM EST [place] [address] [facility] [place] [address] 04/28/2024 2:00 PM EST Office [place] [address] [facility] [place] [address] documented as of this encounter [...] 11:39 AM EST) Neutrophil % 57.5 % [facility] Neutrophil Absolute 4.18 1.70 - 6.10 x10(3)/[facility] LABORATORY Lymph % 31.5 % [facility] Lymphocytes Abs 2.3 0.9 - 3.2 x10(3)/[facility] LABORATORY Monocyte % 7.9 % [facility] Monocyte Abs 0.6 0.3 - 0.9 x10(3)/[facility] LABORATORY Eos % 2.1 % [facility] Eosinophils Abs 0.2 0.0 - 0.4 x10(3)/[facility] LABORATORY Basophil % 0.7 % [facility] Baso Absolute 0.0 0.0 - 0.1 x10(3)/[facility] LABORATORY Immature Gran % 0.30 % [facility] Comment: Immature granulocytes(IG's)percentage and absolute count will include metamyelocytes, myelocytes, and promyelocytes. Blood smears from CBCs yielding IG's will be scanned manually for concordance. If this scan disagrees with the automated IG or if promyelocytes are noted, a manual differential will be performed. Immature Gran Absolute 0.02 0.00 - 0.04 x10(3)/mcL [facility] Blood specimen (specimen) 03/12/2019 11:39 AM EST 03/12/2019 11:54 AM EST Narrative Resulting Agency Comment Spec In Lab Molly Cui APRN HEMATOLOGY ORDERAB LES [facility] [place] [address] * (ABNORMAL) Hemogram (03/12/2019 11:39 AM EST) White Blood Cell 7.3 4.0 - 9.5 x10(3)/mc L [facility] Red Blood Cell 4.50 4.00 - 5.21 x10(6)/mc L [facility] Hemoglobin 13.8 11.7 - 15.5 gm/dL [facility] Hematocrit 41.2 35.7 - 45.8 % [facility] Mean Cell Volume 91.6 82.6 - 94.4 fL [facility] Mean Cell Hemoglobin 30.7 27.1 - 32.0 pg [facility] Mean Cell Hemoglobin Concentration 33.5 31.7 - 35.0 gm/dL [facility] Platelet 122(L) 145 - 357 x10(3)/mc L [facility] RDW Standard Deviation 43.8 37.0 - 46.0 fL [facility] RDW coefficient of variation 13.2 11.5 - 14.1 % [facility] Mean Platelet Volume 11.9 7.6 - 12.9 fL [facility] NRBC% auto 0.0 % [facility] NRBC Absolute 0.000 0.000 - 0.000 x10(3)/mc L [facility] Blood specimen (specimen) 03/12/2019 11:39 AM EST 03/12/2019 11:54 AM EST Narrative Resulting Agency Comment Spec In Lab Molly Cui LORETO HEMATOLOGY ORDERAB LES [facility] [place] [address] * (ABNORMAL) Comprehensive metabolic panel (non-fasting) (03/12/2019 11:39 AM EST) Glucose 156 65 - 199 mg/dL [facility] Comment:Diabetes: >=200 mg/d L plus symptoms Blood Urea Nitrogen 19(H) 8 - 18 mg/dL [facility] Creatinine 0.64(L) 0.70 - 1.20 mg/dL [facility] Sodium 143 135 - 145 mmol/L [facility] Potassium 4.1 3.5 - 5.0 mmol/L [facility] Comment: Please note: ??Patients with WBC >100,000 may have falsely elevated Potassium levels. ??For accurate Potassium quantification in these patients send serum separator tube (gold top) for subsequent determinations. ??Contact the Clinical Chemistry Laboratory if there are any questions. Chloride 102 98 - 107 mmol/L [facility] Carbon Dioxide 26 22 - 31 mmol/L [facility] Anion Gap 15 5 - 15 mmol/L [facility] Calcium 10.1 8.5 - 10.5 mg/dL [facility] Protein, Total 7.9 6.1 - 8.0 gm/dL [facility] Albumin 4.4 3.2 - 5.2 gm/dL [facility] Aspartate Aminotransferase 29 0 - 30 unit/L [facility] Alanine Aminotransferase 27 0 - 30 unit/L [facility] Alkaline Phosphatase 91 35 - 105 unit/L [facility] Bilirubin, Total 0.6 0.2 - 1.3 mg/dL [facility] Est Glomerular Filtration Rate 86 >=60 mL/min/1. 73 m?? [facility] Comment: The eGFR was calculated using the CKD-EPI equation. As with all creatinine based estimates of kidney function, eGFR values calculated with the CKD-EPI equation are not accurate in patients with acute kidney failure, extremes of body mass or the acutely ill. [email or web address]/[facility] eGFR 100 >=60 mL/min/1. 73 m?? [facility] Comment: The eGFR was calculated using the CKD-EPI equation. As with all creatinine based estimates of kidney function, eGFR values calculated with the CKD-EPI equation are not accurate in patients with acute kidney failure, extremes of body mass or the acutely ill. [email or web address]/[facility] Blood specimen (specimen) 03/12/2019 11:39 AM EST 03/12/2019 11:53 AM EST Narrative Resulting Agency Comment Spec In Lab Molly Cui APRN CHEMISTRY ORDERABL ES Performing Organization Address [facility] Co de Phone Number [facility] [place] [address] * (ABNORMAL) Prothrombin Time (03/12/2019 11:39 AM EST) Prothrombin Time 13.5(H) 9.4 - 12.5 sec [facility] International Normalization Ratio 1.2 [facility] Comment: An INR [...] APRN HEMATOLOGY ORDERAB LES Performing Organization Address [facility]/ZIP Co de Phone Number [facility] [place] [address] documented in this encounter Visit Diagnoses Diagnosis Hepatic cirrhosis, unspecified hepatic cirrhosis type, unspecified whether ascites present documented in this encounter Care Teams Horses Or Mules Teamster Relationship Specialty Start Date End Date Salome Mcarthur, VISITING PROFESSOR [address] [place] [address] PCP - General Family Medicine 05/30/15 12/11/23 documented as of this encounter
--- OUTSIDE RECORDS SUMMARY | 2024-03-23 12:37 | XMS_ITS | Encounter Summary ---
Author Organization [facility] [place] [address] Care Team Providers Care Payable Representative Name Role Phone Salome Mcarthur APRN Primary Care Provider [phone] Reason for Visit * Reason Onset Date Comments Reminder Appointment 10/30/2019 Encounter Details Date Type Department Care Team (Late st Contact Info) Description 10/30/2019 Telephone [place] [address] Salome Licona CMA GASTROENTEROLOGY DEPT [...] 04/28/2024 11:00 AM EST Appointment [place] [address] Molly Cui APRN [facility] [place] [address] 04/28/2024 2:00 PM EST Office Visit [place] [phone] Molly Cui APRN [facility] [place] [address] documented as of this encounter Visit Diagnoses Not on filedocumented in this encounter Care Teams Payable Representative Relationship Specialty Start Date End Date Salome Mcarthur, LORETO [address] [place] [address] PCP - General Family Medicine 05/30/15 12/11/23 documented as of this encounter
--- OUTSIDE RECORDS SUMMARY | 2024-03-23 12:37 | XMS_ITS | Encounter Summary ---
Author Organization [facility] [place] [address] Care Team Providers Care Neurobiologist Name Role Phone Salome Mcarthur APRN Primary Care Provider [phone] Reason for Visit * Auth/Cert Specialty Diagnoses / Procedures Referred By Jose bermudez Referred To Contact Diagnoses 1 yr surv from 09/17/18 Procedures PRO UPPER GI ENDOSCOPY, DIAGNOSTIC EGD, UPPER GI ENDOSCOPY Referral ID Status Reason Start Date Expiration Date Visits Re quested Visits Authorized [id number] 1 1 Encounter Details Date Type Department Care Team (Latest Contact Info) Description 09/23/2019 10:29 AM EDT - 09/23/2019 2:07 PM EDT Hospital Encounter [place] [phone] Juliette Chauhan MD [facility] [place] [address] Discharge Disposition: Home Social History Tobacco Use [...] the day after the procedure, use an [id number] spray to numb your throat. Sucking on [...] occurs, please contact your Doctor. Please call [phone] before 8pm Mon-Fri with problems, questions or concerns. If you call after 8pm or on weekends, call the Hospital at [phone] and ask to speak to the Compliance Reviewer airline lounge receptionist and the dye machine operator will contact that person for you. When should you call for help? Call [phone] anytime you think you may need emergency [...] any problems. Where can you learn more? [facility]- View your After Visit Summary and more online at [email or web address] If you would like to provide feedback about your hospital experience, please call the Office of Patient and Family Relations at . If you have received this After Visit Summary in error, please immediately return it in person to the department, or notify the [facility] Privacy Office by calling toll free at between the hours of 8AM and 5PM to arrange for our retrieval of the documents at no cost to you. Content Version: 12.2 ?? [id number] [email or web address]. Care instructions adapted under license by [facility]. If you have questions about a medical condition or this instruction, always ask your healthcare professional. [email or web address] disclaims any warranty or liability for your use of this information. documented in this encounter Medications at Time of Discharge Medication Sig Dispensed Refills Start Date End Date lisinopriL (Zestril) 10 mg tablet Take 1 tablet by mouth once a day for kidney protection 06/06/2009 fluticasone propionate (FLONASE) 50 mcg/actuation [place], Suspension 1 spray daily. pramipexole (MIRAPEX) 0.125 [...] 04/28/2024 11:00 AM EST Appointment [place] [phone] Molly Cui, [facility] [place] [address] 04/28/2024 2:00 PM EST Office Visit [place] [address] Molly Cui, [facility] [place] [address] documented as of this encounter Procedures Procedure Name Priority Date/Time Associated Diagnosis Comments Upper GI Endoscopy, Diagnostic (02159) 09/23/2019 11:55 AM EDT 1 yr surv from 09/17/18 UPPER GI ENDOSCOPY Routine 09/23/2019 11 :41 AM EDT documented in this encounter Results * UPPER GI ENDOSCOPY (09/23/2019 11:41 AM EDT) [facility] UPPER GI ENDOSCOPY [facility] Endoscopy Procedure Date: 09/23/2019 11:41 AM ? Patient Name: Milka Corbett ? Date of : 1940 ? Age: 79 ? Order #: [id number] ? Instrument Name: [id number] ? Procedure: ? Upper GI endoscopy Indications: ? Follow-up of esophageal varices Providers: ? Juliette Chauhan MD, Bertha Lizarraga ? TRISHA Oleary, Fauzia Castillo ? TRISHA Kang, Genoveva Webber, Info Print Press Operator Referring MD: ?Sophia Mcarthur MD Medicines: ? Midazolam [...] Procedure Code(s): ?? --- Professional --- ? 56947, Esophagogastroduod enoscopy, ? flexible, transoral; diagnostic, ? including collection of specimen(s) ? by brushing or washing, when ? performed (separate procedure) CPT copyright 2019 [employer]. All rights reserved. The codes documented in this report are preliminary and upon director stage review may be revised to meet current compliance requirements. Attending Participation: ? I personally performed the entire procedure. ? Juliette Chauhan MD Juliette Chauhan MD 09/23/2019 12:19:55 PM This report has been signed electronically. Number of Addenda: 0 Note Initiated On: 09/23/2019 11:41 AM PROVATION 09/23/2019 11:4 1 AM EDT Salome Mcarthur [employer] GENERAL SURGICAL OR DERABLES PROVATION documented in [...] infusion 100 mL/hr, Intravenous, CONTINUOUS, Starting on 09/23/19 at 1130, Until Sat09/23/19 at 1607, Endoscopy [...] RN) documented in this encounter Care Teams Neurobiologist Relationship Specialty Start Date End Date Salome Mcarthur APRN [address] [place] [id number] PCP - General Family Medicine 05/30/15 12/11/23 documented as of this encounter
--- OUTSIDE RECORDS SUMMARY | 2024-03-23 12:37 | XMS_ITS | Encounter Summary ---
[place] [address] Care Team Providers Care Casino Cashier Name Role Phone Salome Mcarthur APRN Primary Care Provider [phone] Reason for Visit * Auth/Cert Specialty Diagnoses / Procedures Referred By Jose bermudez Referred To Contact Diagnoses 1 yr surv from 09/17/18 Procedures PRO UPPER GI ENDOSCOPY, DIAGNOSTIC EGD, UPPER GI ENDOSCOPY Referral ID Status Reason Start Date Expiration Date Visits Re quested Visits Authorized [id number] 1 1 Encounter Details Date Type Department Care Team (Late st Contact Info) Description 09/23/2019 11:30 AM EDT - 09/23/2019 12:15 PM EDT Surgery [place] [phone] Juliette Chauhan MD [facility] [place] [address] EGD, UPPER GI ENDOSCOPY (WRVU 2.09) Social [...] the day after the procedure, use an nvua-hps-ootcuzg spray to numb your throat. Sucking on [...] occurs, please contact your Doctor. Please call [phone] before 8pm Mon-Fri with problems, questions or concerns. If you call after 8pm or on weekends, call the Hospital at [phone] and ask to speak to the Fundraising Coordinator credit and loan collections supervisor and the lead shop operator will contact that person for you. When should you call for help? Call [phone] anytime you think you may need emergency [...] any problems. Where can you learn more? [facility] View your After Visit Summary and more online at [email or web address] If you would like to provide feedback about your hospital experience, please call the Office of Patient and Family Relations at . If you have received this After Visit Summary in error, please immediately return it in person to the department, or notify the [facility] Privacy Office by calling toll free at between the hours of 8AM and 5PM to arrange for our retrieval of the documents at no cost to you. Content Version: 12.2 ?? [id number] [employer]. Care instructions adapted under license by [facility]. If you have questions about a medical condition or this instruction, always ask your healthcare professional. [employer] disclaims any warranty or liability for your use of this information. documented in this encounter Medications at Time of Discharge Medication Sig Dispensed Refills Start Date End Date lisinopriL (Zestril) 10 mg tablet Take 1 tablet by mouth once a day for kidney protection 06/06/2009 fluticasone propionate (FLONASE) 50 mcg/actuation [place], Suspension 1 spray daily. pramipexole (MIRAPEX) 0.125 [...] 04/28/2024 11:00 AM EST Appointment [place] [address] Molly Cui, [facility] [place] [address] 04/28/2024 2:00 PM EST Office Visit [place] [address] Molly Cui, [facility] [place] [address] documented as of this encounter Procedures Procedure Name Priority Date/Time Associated Diagnosis Comments Upper GI Endoscopy, Diagnostic (02964) 09/23/2019 11:55 AM EDT 1 yr surv from 09/17/18 UPPER GI ENDOSCOPY Routine 09/23/2019 11 :41 AM EDT documented in this encounter Results * UPPER GI ENDOSCOPY (09/23/2019 11:41 AM EDT) [facility] UPPER GI ENDOSCOPY [facility] Endoscopy Procedure Date: 09/23/2019 11:41 AM ? Patient Name: Milka Corbett ? Date of : 1940 ? Age: 79 ? Order #: [id number] ? Instrument Name: [id number] ? Procedure: ? Upper GI endoscopy Indications: ? Follow-up of esophageal varices Providers: ? Juliette Chauhan MD, Bertha Lizarraga ? TRISHA Oleary, Fauzia Castillo ? TRISHA Kang, Genoveva Webber, Clinical Psychologist Referring : ?Sophia Mcarthur MD Medicines: ? [...] Procedure Code(s): ?? --- Professional --- ? 99451, Esophagogastroduod enoscopy, ? flexible, transoral; diagnostic, ? including collection of specimen(s) ? by brushing or washing, when ? performed (separate procedure) CPT copyright 2019 [employer]. All rights reserved. The codes documented in this report are preliminary and upon head transfer clerk review may be revised to meet current [...] RN) documented in this encounter Care Teams Casino Cashier Relationship Specialty Start Date End Date Salome Mcarthur APRN [address] [place] [address] PCP - General Family Medicine 05/30/15 12/11/23 documented as of this encounter
--- OUTSIDE RECORDS SUMMARY | 2024-03-23 12:37 | XMS_ITS | Encounter Summary ---
Author Organization [facility] Address [facility] [place] [address] Care Team Providers Care Capture Manager Name Role Phone Salome Mcarthur APRN Primary Care Provider [phone] Reason for Visit * Auth/Cert Specialty Diagnoses [...] Expiration Date Visits Re quested Visits Authorized [id number] 1 1 Encounter Details Date Type Department Care Team (Latest Contact Info) Description 09/26/2020 12:50 PM EDT - 09/26/2020 3:53 PM EDT Hospital Encounter [place] [address] Jean Claude Chacon MD [facility] [place] [address] Hepatic cirrhosis Discharge Disposition: Home Social History [...] the day after the procedure, use an maqh-qfa-tcymsxx spray to numb your throat. Sucking on [...] occurs, please contact your Doctor. Please call [phone] before 8pm Mon-Fri with problems, questions or concerns. If you call after 8pm or on weekends, call the Hospital at [phone] and ask to speak to the Alternative Education Teacher train station server and the chrome tanning drum operator will contact that person for you. When should you call for help? Call [phone] anytime you think you may need emergency [...] any problems. Where can you learn more? [email or web address] View your After Visit Summary and more online at [email or web address] If you would like to provide feedback about your hospital experience, please call the Office of Patient and Family Relations at . If you have received this After Visit Summary in error, please immediately return it in person to the department, or notify the [facility] Privacy Office by calling toll free at between the hours of 8AM and 5PM to arrange for our retrieval of the documents at no cost to you. Content Version: 12.2 ?? [phone] [employer]. Care instructions adapted under license by [facility]. If you have questions about a medical condition or this instruction, always ask your healthcare professional. [employer] disclaims any warranty or liability for your [...] directed. 05/02/2020 fluticasone propionate (FLONASE) 50 mcg/actuation [place], Suspension 1 spray daily. pramipexole (MIRAPEX) 0.125 [...] Operative Note Patient Name: Milka Corbett : [id number] MR#: [id number] Case Date: 09/26/2020 Surgeon: Surgeon(s) and Role: * Braulio Bailey MD - Primary Procedure(s): EGD, UPPER GI ENDOSCOPY Please see Provation report for details. documented in this encounter Plan of Treatment Upcoming Encounters Date Type Department Care Team (Late st Contact Info) Description 04/28/2024 11:00 AM EST Appointment [place] [address] Molly Cui, [facility] [place] [address] 04/28/2024 2:00 PM EST Office Visit [place] [phone] Molly Cui [facility] [place] [address] documented as of this encounter Procedures Procedure Name Priority Date/Time Associated Diagnosis Comments EGD, UPPER GI ENDOSCOPY (WRVU 2.09) 09/26/2020 2:12 PM EDT Hepatic cirrhosis, unspecified hepatic cirrhosis type, unspecified whether ascites present UPPER GI ENDOSCOPY Routine 09/26/2020 1: 55 PM EDT POCT GLUCOSE Routine 09/26/2020 1:42 PM EDT documented in this encounter Results * UPPER GI ENDOSCOPY (09/26/2020 1:55 PM EDT) UPPER GI ENDOSCOPY [facility] Endoscopy Procedure Date: 09/26/2020 1:55 PM ? Patient Name: Milka Corbett ? Date of : 1940 ? Age: 80 ? Order #: [id number] ? Instrument Name: [id number] LOANER ? Procedure: ? Upper GI endoscopy Indications: ? Esophageal varices, Follow-up of ? esophageal varices Providers: ? Beatriz Hammond, Braulio Vasquez ? Leo Perez MD: ?Sophia Mcarthur MD [...] Procedure Code(s): ?? --- Professional --- ? 90783, Esophagogastroduod enoscopy, ? flexible, transoral; diagnostic, ? including collection of specimen(s) ? by brushing or washing, when ? performed (separate procedure) Diagnosis Code(s): ?? --- Professional --- ? K29.70, Gastritis, unspecified, ? without bleeding ? 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 --- Technical --- ? K29.70, Gastritis, unspecified, ? without bleeding ? 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 bleeding CPT copyright 2019 [employer]. All rights reserved. The codes documented in this report are preliminary and upon finger cobbler review may be revised to meet current compliance requirements. Attending Participation: ? I personally performed the entire procedure. ? Braulio Bailey, 09/26/2020 2:38:44 PM Number of Addenda: 0 Note Initiated On: 09/26/2020 1:55 PM PROVATION 09/26/2020 1:55 PM EDT Salome Mcarthur [facility] * POCT Glucose (09/26/2020 1:42 PM EDT) Glucose, POC 88 65 - 199 mg/dL [facility] Comment: Supplemental ranges: <140 mg/dL before meals <180 mg/dL all other times of the day Blood 09/26/2020 1:42 PM EDT 09/25/2020 12:00 PM EDT Jean Claude Chacon MD POINT OF CARE TEST O RDERABLES [facility] [place] [address] documented in this encounter Visit Diagnoses Diagnosis [...] 1424 (Given - Provid er: Beatriz Hammond RN)142 (Given - Provider: Beatriz Hammond RN) midazolam (pf) (Versed) (1 mg/mL) multi-dose injection (CANCELED) ONCE PRN, Starting on Sat09/26/20 at 1424, Until Sat09/26/20 at 1753, Intra-Operative (Intra-Procedure), Routine 1424 (Given - Provid er: Beatriz Hammond RN)1427 (Given - Provider: Beatriz Hammond, RN) documented in this encounter Care Teams Capture Manager Relationship Specialty Start Date End Date Salome Mcarthur APRN [address] [place] [address] PCP - General Family Medicine 05/30/15 12/11/23 documented as of this encounter
--- OUTSIDE RECORDS SUMMARY | 2024-03-23 12:37 | XMS_ITS | Encounter Summary ---
Author Organization [facility] Address [facility] [place] [address] Care Team Providers Care Electrical Engineering Technician Name Role Phone Salome Mcarthur APRN Primary Care Provider [phone] Encounter Details Date Type Department Care Team (Latest Contact Info) Description 05/19/2020 10:31 AM EST - 05/19/2020 11:59 PM [facility] Hospital [place] [phone] Molly Wallis [facility] [place] [address] Hepatic cirrhosis, unspecified hepatic cirrhosis type, unspecified [...] directed. 05/02/2020 fluticasone propionate (FLONASE) 50 mcg/actuation [place], Suspension 1 spray daily. pramipexole (MIRAPEX) 0.125 [...] 04/28/2024 11:00 AM [place] [address] Molly Wallis, [facility] [place] [address] 04/28/2024 2:00 PM EST Office [place] [address] Molly Wallis, [facility] [place] [address] documented as of this encounter Procedures Procedure [...] 11:57 am) PATIENT INFO: ID #: ? [id number] ?: ??[birth year] (79 yrs)(F) Name: ? MILKA MENDIETA ?Visit Date: 05/19/2020 11:19 am PERFORMED BY: Performed By: ? Gabi Mtz RDMS Attending: ?Perfecto GALLO, Alisha Carpio Resident: ? Tacho Guajardo MD Referred By: ?MOLLY WALLIS Secondary Phy.: ?? MOLLY WALLIS JAVA TECH LEAD Location: ? [place] SERVICE(S) PROVIDED: ??UABDLIM - Hepatology Protocol - Abdominal ? 7[address]63 ??Limited Survey Single Organ or Quadrant - ??[id number] INDICATIONS: ??cirrhosis, screen for hcc ------ LIVER: [...] 05/19/2020 11:57 am) PATIENT INFO: ID #: [id number] : [birth year] (79 yrs)(F) Name: MILKA MENDIETA Visit Date: 05/19/2020 11:19 am PERFORMED BY: Performed By: Gabi Mtz RDMS Attending: Alisha Grove MD Resident: Tacho Guajardo MD Referred By: MOLLY WALLIS Secondary Phy.: MOLLY WALLIS APRN Location: [place] SERVICE(S) PROVIDED: UABDLIM - Hepatology Protocol - Abdominal 66927 Limited Survey Single Organ or Quadrant - [id number] INDICATIONS: cirrhosis, screen for hcc ------ LIVER: [...] Report 05/19/2020 11:57 am Molly Wallis APRN [facility] GEN ORDERAB LES documented in this encounter Visit Diagnoses Diagnosis Hepatic cirrhosis, unspecified hepatic cirrhosis type, unspecified whether ascites present documented in this encounter Care Teams Electrical Engineering Technician Relationship Specialty Start Date End Date Salome Mcarthur APRN [address] [place] [address] PCP - General Family Medicine 05/30/15 12/11/23 documented as of this encounter
--- OUTSIDE RECORDS SUMMARY | 2024-03-23 12:37 | XMS_ITS | Encounter Summary ---
Author Organization [facility] [place] [address] Care Team Providers Care Comic Book Writer Name Role Phone Salome Mcarthur APRN Primary Care Provider [phone] Encounter Details Date Type Department Care Team (Late st Contact Info) Description 12/06/2020 2:00 PM EDT Office [place] [address] Molly Wallis APRN [facility] [place] [address] Hepatic cirrhosis, unspecified hepatic cirrhosis type, unspecified [...] Progress Notes * Molly Wallis APRN - 12/06/2020 2:00 PM EDT Hepatology Follow Up Note Patient: Milka Mendieta Gender: female : 1940 Provider: Molly Wallis NP Referring Physician: Salome Mcarthur APRN HISTORY OF PRESENT ILLNESS Milka Mendieta is a 80 y.o. year old [...] for the 12/06/20 encounter (Office Visit) with Molly Wallis APRN Medication Sig Dispense Refill ??? Victoza 2-Jl 0.6 mg/0.1 mL (18 mg/3 mL) Pen Injector ??? Byetta 10 mcg/dose(250 mcg/mL) 2.4 mL Pen Injector ??? lisinopril (PRINIVIL;ZESTRIL) 20 mg Tablet Take 20 mg by mouth daily. ??? fluticasone propionate (FLONASE) 50 mcg/actuation [place], Suspension 1 spray daily. ??? pramipexole (MIRAPEX) [...] mouth as needed. Reported on 08/21/2016 ??? [place]-3 Fatty Acids-Vitamin E (FISH OIL) 1,000 mg Cap Take 3,000 mg by mouth daily. ??? multivitamin (THERAGRAN) tablet Take 1 tablet by mouth daily. ??? amitriptyline (ELAVIL) 50 mg tablet Take 50 mg by mouth nightly. Current Facility-Administered Medications for the 12/06/20 encounter (Office Visit) with Molly Wallis APRN [...] Vitals: 12/06/20 1420 BP: 120/55 BP Location (NBP): Right arm Patient Position: [...] in May 2020 5. No ascites ASSESSMENT/PLAN Milka Mendieta is a 80 y.o. female with [...] in 03/2021 with labs, US and visit. Molly Wallis APRN Section of Gastroenterology [place] [address] Copy: Salome Mcarthur APRN [address] / [employer] [address] Time spent reviewing records prior to this [...] 04/28/2024 11:00 AM EST [place] [phone] Molly Wallis APRN [facility] [place] [address] 04/28/2024 2:00 PM EST Office [place] [phone] Molly Wallis MERCHANDISING EXECUTION ASSOCIATE [facility] [place] [address] documented as of this encounter Results * Prothrombin Time (06/01/2021 10:31 AM EST) Prothrombin Time 12.1 9.4 - 12.5 sec [facility] International Normalization Ratio 1.1 [facility] Comment: An INR [...] Lab Molly Wallis APRN HEMATOLOGY ORDERAB LES [facility] [place] [address] * (ABNORMAL) Comprehensive metabolic panel (non-fasting) (06/01/2021 10:31 AM EST) Glucose 187 65 - 199 mg/dL [facility] Comment:Diabetes: >=200 mg/d L plus symptoms Blood Urea Nitrogen 16 8 - 18 mg/dL [facility] Creatinine 0.61(L) 0.70 - 1.20 mg/dL [facility] Sodium 139 135 - 145 mmol/L [facility] Potassium 4.3 3.5 - 5.0 mmol/L [facility] Comment: Please note: ??Patients with WBC >100,000 may have falsely elevated Potassium levels. ??For accurate Potassium quantification in these patients send serum separator tube (gold top) for subsequent determinations. ??Contact the Clinical Chemistry Laboratory if there are any questions. Chloride 102 98 - 107 mmol/L [facility] Carbon Dioxide 25 22 - 31 mmol/L [facility] Anion Gap 12 5 - 15 mmol/L [facility] Calcium 10.0 8.5 - 10.5 mg/dL [facility] Protein, Total 6.8 6.1 - 8.0 g/dL [facility] Albumin 4.3 3.2 - 5.2 g/dL [facility] Aspartate Aminotransferase 45(H) 0 - 30 unit/L [facility] Alanine Aminotransferase 60(H) 0 - 30 unit/L [facility] Alkaline Phosphatase 95 35 - 105 unit/L [facility] Bilirubin, Total 0.7 0.2 - 1.3 mg/dL [facility] Est Glomerular Filtration Rate 86 >=60 mL/min/1. 73 m?? [facility] Comment: This patient? s [...] Lab Molly Wallis APRN CHEMISTRY ORDERABL ES [facility] [place] [address] * US Abdomen Limited Hepatology Protocol (06/01/2021 9:49 AM EST) Anatomical Region Laterality Modality Abdomen Ultrasound 06/01/2021 9:47 AM EST Impressions 06/01/2021 10:02 AM EST Comparison 09/26/2020. 1. ??Stable enlarged nodular coarsened liver consistent with known cirrhosis. Stable small echogenic hemangioma again noted. No new discrete liver lesions are identified. No ascites. Normal hepatopedal flow is seen in the main portal vein. Electronically signed by: Marilee Hernández MD, Radiology [place] ([phone]), at 06/01/2021 9:55 AM Thank you for letting us participate in the care of this patient. If you are a health care provider and have any questions regarding this report, please contact the number above. For patients who have questions, please contact the health primary care coordinator that requested your imaging first. ?Marilee Her, Staff Physician Electronically Signed Final Report ?? 06/01/2021 10:01 am Narrative 06/01/2021 10:02 AM EST Abdominal ? (Signed Final 06/01/2021 10:01 am) PATIENT INFO: ID #: ? [id number] ?: ??[birth year] (80 yrs)(F) Name: ? MILKA MENDIETA ?Visit Date: 06/01/2021 09:47 am PERFORMED BY: Performed By: ? Lana Gotti RDMS Attending: ?Betty GALLO, Marilee Ragsdale Referred By: ?MOLLY WALLIS Secondary Phy.: ?? MOLLY WALLIS MERCHANDISING EXECUTION ASSOCIATE Location: ? [place] SERVICE(S) PROVIDED: UABDLIM - Hepatology Protocol - Abdominal ? 24480 Limited Survey Single Organ or Quadrant - [id number] INDICATIONS: cirrhosis, screen for hcc ------ LIVER: [...] 06/01/2021 10:01 am) PATIENT INFO: ID #: [id number] : [birth year] (80 yrs)(F) Name: MILKA MENDIETA Visit Date: 06/01/2021 09:47 am PERFORMED BY: Performed By: Lana Gotti RDMS Attending: Marilee Hernández MD Referred By: MOLLY WALLIS [facility] Phy.: MOLLY WALLIS APRN Location: [place] [facility] Hep[facility] Protocol - Abdominal 86193 Limited Survey Single Organ or Quadrant - [id number] INDICATIONS: cirrhosis, screen for hcc ------ LIVER: [...] is seen in the main portal vein. Electronically signed by: Marilee Hernández MD, Radiology [place] ([phone]), at 06/01/2021 9:55 AM Thank you for letting us participate in the care of this patient. If you are a health care provider and have any questions regarding this report, please contact the number above. For patients who have questions, please contact the health primary care coordinator that requested your imaging first. Marilee Her, Staff Physician Electronically Signed Final Report 06/01/2021 10:01 am Molly Wallis APRN IMG GEN ORDERAB LES documented in this encounter Visit Diagnoses Diagnosis Hepatic cirrhosis, unspecified hepatic cirrhosis type, unspecified whether ascites present Hepatic cirrhosis, unspecified hepatic cirrhosis type, unspecified whether ascites present documented in this encounter Care Teams Comic Book Writer Relationship Specialty Start Date End Date Salome Mcarthur APRN [address] [place] [address] PCP - General Family Medicine 05/30/15 12/11/23 documented as of this encounter
--- OUTSIDE RECORDS SUMMARY | 2024-03-23 12:37 | XMS_ITS | Encounter Summary ---
Author Organization [facility] Address [facility] [place] [address] Care Team Providers Care Fast Food Assistant Restaurant Manager Name Role Phone Salome Mcarthur APRN Primary Care Provider +1 [phone] Reason for Visit * Auth/Cert Specialty Diagnoses [...] Expiration Date Visits Re quested Visits Authorized [id number] 1 1 Encounter Details Date Type Department Care Team (Latest Contact Info) Description 09/26/2020 11:28 AM EDT - 09/26/2020 12:49 PM EDT Hospital En[place] [address] Molly Wallis APRN [facility] [place] [address] Hepatic cirrhosis, unspecified hepatic cirrhosis type, unspecified [...] a day for kidney protection 06/06/2009 Victoza 2-Lj 0.6 mg/0.1 mL (18 mg/3 mL) Pen Injector Inject 1.8 mg as directed. 05/02/2020 fluticasone propionate (FLONASE) 50 mcg/actuation [place], Suspension 1 spray daily. pramipexole (MIRAPEX) 0.125 [...] 04/28/2024 11:00 AM EST Appointment [place] [address] Molly Wallis, [facility] [place] [address] 04/28/2024 2:00 PM EST Office Visit [place] [phone] Molly Wallis, [facility] [place] [address] documented as of this encounter Procedures Procedure [...] who have questions please contact the health school child care attendant that requested your imaging first. Thank you for letting us participate in the care of this patient. If you are a health care provider and have any questions regarding this report, please contact the number below. For patients who have questions, please contact the health school child care attendant that requested your imaging first. ??Meghan Cardozo, [facility] & Dept Chair - Rad Electronically Signed Final Report ?? 09/26/2020 11:56 am Narrative 09/26/2020 11:57 AM EDT Abdominal ? (Signed Final 09/26/2020 11:56 am) PATIENT INFO: ID #: ? [id number] ?: ??[birth year] (80 yrs)(F) Name: ? MILKA Yue MENDIETA ?Visit Date: 09/26/2020 11:29 am PERFORMED BY: Performed By: ? Crista Zhong RDMS Attending: ?Juliane GALLO, Meghan Ventura Referred By: ?MOLLY WALLIS Secondary Phy.: ?? MOLLY WALLIS SURFACE HYDROLOGIST Location: ? [place] SERVICE(S) PROVIDED: UABDLIM - Hepatology Protocol - Abdominal ? 49702 Limited Survey Single Organ or Quadrant - [id number] INDICATIONS: cirrhosis, screen for hcc COMPARISON: US: [...] 09/26/2020 11:56 am) PATIENT INFO: ID #: [id number] : [birth year] (80 yrs)(F) Name: MILKA MENDIETA Visit Date: 09/26/2020 11:29 am PERFORMED BY: Performed By: Crista Zhong RDMS Attending: Meghan Cardozo MD Referred By: MOLLY WALLIS [facility] Phy.: MOLLY WALLIS SURFACE HYDROLOGIST Location: [place] SERVICE(S) PROVIDED: BDLIM - Hepatology Protocol - Abdominal 05801 Limited Survey Single Organ or Quadrant - [id number] INDICATIONS: cirrhosis, screen for hcc COMPARISON: US: [...] who have questions please contact the health school child care attendant that requested your imaging first. Thank you for letting us participate in the care of this patient. If you are a health care provider and have any questions regarding this report, please contact the number below. For patients who have questions, please contact the health school child care attendant that requested your imaging first. Meghan Cardozo, [facility] & Dept Chair - Rad Electronically Signed Final Report 09/26/2020 11:56 am Molly Wallis APRN [facility] GEN ORDERAB LES documented in this encounter Visit Diagnoses Diagnosis Hepatic cirrhosis, unspecified hepatic cirrhosis type, unspecified whether ascites present documented in this encounter Care Teams Fast Food Assistant Restaurant Manager Relationship Specialty Start Date End Date Salome Mcarthur APRN [address] [address] PCP - General Family Medicine 05/30/15 12/11/23 documented as of this encounter
--- OUTSIDE RECORDS SUMMARY | 2024-03-23 12:37 | XMS_ITS | Encounter Summary ---
Author Organization [facility] [place] [address] Care Team Providers Care Zoology Professor Name Role Phone Salome Mcarthur APRN Primary Care Provider +1 [phone] Reason for Visit * Auth/Cert Specialty Diagnoses / Procedures Referred By Joes t Referred To Contact Diagnoses cirrhosis,screening for varices (IVCS) prep: proclear Procedures PRO UPPER GI ENDOSCOPY, DIAGNOSTIC EGD, UPPER GI ENDOSCOPY Referral ID Status Reason Start Date Expiration Date Visits Re quested Visits Authorized [id number] 1 1 Encounter Details Date Type Department Care Team (Late st Contact Info) Description 09/17/2018 11:30 AM EDT - 09/17/2018 12:00 PM EDT Surgery [place] [phone] Juliette Chauhan MD [facility] [place] [address] EGD, UPPER GI ENDOSCOPY (WRVU 2.09) Social [...] better as expected. Saturday-Saturday Same Day Endo [phone] 7a-8p Otherwise contact [phone] and ask to speak to the marker machine attendant airborne mission systems Follow-up care is a palomo part of your treatment and safety. Be sure to make and go to all appointments, and call your doctor if you are having problems. Instructions have been reviewed and patient expresses understanding Please call [phone] before 8pm Sat-Sat with problems, questions or concerns. If you call after 8pm or on weekends, call the Hospital at [phone] and ask to speak to the Field Support Engineer airborne mission systems and the ladder operator will contact that person for you. [...] WHEN SHOULD YOU CALL FOR HELP? Call [phone] anytime you think that you need emergency [...] better as expected. Saturday-Saturday Same Day Endo [phone] 7a-8p Otherwise contact [phone] and ask to speak to the marker machine attendant airborne mission systems Follow-up care is a palomo part of [...] protection 06/06/2009 fluticasone propionate (FLONASE) 50 mcg/actuation [place], Suspension 1 spray daily. pramipexole (MIRAPEX) 0.125 [...] Electronically signed by: Kehinde Martin Gastroenterology Fellow [facility] Pager [phone] 09/17/2018 documented in this encounter Plan of Treatment Upcoming Encounters Date Type Department Care Team (Late st Contact Info) Description 04/28/2024 11:00 AM EST Appointment [place] [address] Molly Cui, [facility] [place] [address] 04/28/2024 2:00 PM EST Office [place] [phone] Molly Cui, [facility] [place] [address] documented as of this encounter Procedures Procedure Name Priority Date/Time Associated Diagnosis Comments EGD, UPPER GI ENDOSCOPY (WRVU 2.09) 09/17/2018 10:04 AM EDT cirrhosis,screening for varices (IVCS) prep: proclear UPPER GI ENDOSCOPY Routine 09/17/2018 9: 58 AM EDT documented in this encounter Results * UPPER GI ENDOSCOPY (09/17/2018 9:58 AM EDT) UPPER GI ENDOSCOPY [facility] Endoscopy Procedure Date: 09/17/2018 9:58 AM ? Patient Name: Milka Corbett ? Date of : 1940 ? Age: 78 ? Order #: [id number] ? Instrument Name: [id number] ? Procedure: ? Upper GI endoscopy Indications: [...] the physician, the nurse ? and the parts technician. The procedure was ? verified in [...] Procedure Code(s): ?? --- Professional --- ? 51976, Esophagogastroduod enoscopy, ? flexible, transoral; diagnostic, ? including collection of specimen(s) ? by brushing or washing, when ? performed (separate procedure) CPT copyright 2017 [employer]. All rights reserved. The codes documented in this report are preliminary and upon durability engineer review may be revised to meet current compliance requirements. Attending Participation: ? I was present and participated during the entire ? procedure, including non-palomo portions. ? Juliette Zoey Tien, 09/17/2018 10:32:25 AM Number of Addenda: 0 Note Initiated On: 09/17/2018 9:58 AM PROVATION 09/17/2018 9:58 AM EDT Salome Mcarthur CAPACITY PLANNING MANAGER GENERAL SURGICAL OR DERABLES PROVATION documented in [...] RN) documented in this encounter Care Teams Zoology Professor Relationship Specialty Start Date End Date Salome Mcarthur APRN [address] [place] [address] PCP - General Family Medicine 05/30/15 12/11/23 documented as of this encounter
--- OUTSIDE RECORDS SUMMARY | 2024-03-23 12:38 | XMS_ITS | Encounter Summary ---
Author Organization [facility] [place] [address] Care Team Providers Care Forestry Aide Name Role Phone Salome Mcarthur APRN Primary Care Provider +1 [phone] Encounter Details Date Type Department Care Team (Late st Contact Info) Description 07/14/2018 Telephone [place] [phone] Crista Kyle Social History Tobacco Use Types [...] 04/28/2024 11:00 AM [place] [phone] Molly Cui APRN [facility] [place] [address] 04/28/2024 2:00 PM EST Office [place] [address] Molly Cui APRN [facility] [place] [address] documented as of this encounter Visit Diagnoses Not on filedocumented in this encounter Care Teams Forestry Aide Relationship Specialty Start Date End Date Salome Mcarthur APRN [address] [place] [address] PCP - General Family Medicine 05/30/15 12/11/23 documented as of this encounter
--- OUTSIDE RECORDS SUMMARY | 2024-03-23 12:38 | XMS_ITS | Encounter Summary ---
Author Organization [facility] [place] [address] Care Team Providers Care Media Executive Name Role Phone Salome Mcarthur APRN Primary Care Provider +1 [phone] Encounter Details Date Type Department Care Team (Late st Contact Info) Description 08/26/2017 Telephone [place] [address] Molly Wallis APRN [facility] [place] [address] Social History Tobacco Use Types Packs/Day Years [...] do MRI to further evaluate. Will ask operations scheduler to reach out to patient to schedule MRI. Patient understands, answered all questions. MOLLY WALLIS APRN documented in this encounter Plan of Treatment Upcoming Encounters Date Type Department Care Team (Late st Contact Info) Description 04/28/2024 11:00 AM EST Appointment [place] [address] Molly Wallis, BREAD RACKER [facility] [place] [address] 04/28/2024 2:00 PM EST Office Visit [place] [address] Molly Wallis, LORETO [facility] [place] [address] documented as of this encounter Visit Diagnoses Not on filedocumented in this encounter Care Teams Media Executive Relationship Specialty Start Date End Date Salome Mcarthur APRN [address] [place] [address] PCP - General Family Medicine 05/30/15 12/11/23 documented as of this encounter
--- OUTSIDE RECORDS SUMMARY | 2024-03-23 12:38 | XMS_ITS | Encounter Summary ---
Author Organization [facility] Address [facility] [place] [address] Care Team Providers Care Mill Roll Operator Name Role Phone Salome Mcarthur APRN Primary Care Provider Encounter Details Date Type Department Care Team (Latest Contact Info) Description 02/22/2017 9:37 AM EST - 02/22/2017 11:59 PM [facility] Hospital Encounter [place] [address] Molly Wallis [facility] [place] [address] NAFLD (nonalcoholic fatty liver disease) Discharge Disposition: [...] 04/28/2024 11:00 AM EST Appointment [place] [phone] Molly Wallis [facility] [place] [address] 04/28/2024 2:00 PM EST Office Visit [place] [phone] Molly Wallis, [facility] [place] [address] documented as of this encounter Procedures Procedure [...] 10:44 am) PATIENT INFO: ID #: ? [id number] ?: ??[birth year] (76 yrs) Name: ? MILKA MENDIETA ?Visit Date: 02/22/2017 10:24 am PERFORMED BY: Performed By: ? Macario HI, ??Debib Attending: ?Betty GALLO, Marilee Ragsdale Referred By: ?MOLLY WALLIS Secondary Phy.: ?? MOLLY WALLIS COMMUNITY MANAGER Location: ? [place] SERVICE(S) PROVIDED: ??UABDLIM - Abdominal Limited Survey Single ? 26890 ??Organ or Quadrant - [id number] INDICATIONS: ??Compensated cirrhosis, assess for HCC COMPARISON: [...] 02/22/2017 10:44 am) PATIENT INFO: ID #: [id number] : 42 (76 yrs) Name: MILKA MENDIETA Visit Date: 02/22/2017 10:24 am PERFORMED BY: Performed By: Debbi Sorto RDMS Attending: Marilee Hernández MD Referred By: MOLLY WALLIS Secondary Phy.: MOLLY WALLIS APRN Location: [place] SERVICE(S) PROVIDED: UABDLIM - Abdominal Limited Survey Single 20162 Organ or Quadrant - [id number] INDICATIONS: Compensated cirrhosis, assess for HCC COMPARISON: [...] disease documented in this encounter Care Teams Mill Roll Operator Relationship Specialty Start Date End Date Salome Mcarthur APRN [address] [place] [address] PCP - General Family Medicine 05/30/15 12/11/23 documented as of this encounter
--- OUTSIDE RECORDS SUMMARY | 2024-03-23 12:38 | XMS_ITS | Encounter Summary ---
[place] [address] Care Team Providers Care Technical Inspector Name Role Phone Salome Mcarthur APRN Primary Care Provider +[phone] Reason for Referral * Diagnostic Test (Routine) - Closed Specialty Diagnoses / Procedures Referred By Contac t Referred To Contact Radiology Diagnoses NAFLD (nonalcoholic fatty liver disease) Procedures MRI Abdomen wwo Contrast (Generic) Molly Cui MINERALOGY PROFESSOR [facility] [place] [address] [place] [address] Referral ID Status Reason Start Date Expiration Date V isits Requested Visits Authorized [id number] Closed Specialty Service Requested 08/22/2017 08/22/2018 1 1 Reason for Visit * Diagnostic Test (Routine) - Closed Specialty Diagnoses / Procedures Referred By Contac t Referred To Contact Radiology Diagnoses NAFLD (nonalcoholic fatty liver disease) Procedures MRI Abdomen wwo Contrast (Generic) Molly Cui MINERALOGY PROFESSOR [facility] [place] [address] [place] [address] Referral ID Status Reason Start Date Expiration Date V isits Requested Visits Authorized [id number] Closed Specialty Service Requested 08/22/2017 08/22/2018 1 1 Encounter Details Date Type Department Care Team (Latest Contact Info) Description 09/20/2017 2:41 PM EDT - 09/20/2017 11:59 PM EDT Hospital Encounter MRI at [facility] [place] [address] Molly Cui APRN [facility] [place] [address] NAFLD (nonalcoholic fatty liver disease) Discharge Disposition: [...] by mouth. 02/24/2009 fluticasone (FLONASE) 50 mcg/actuation [place], Suspension 1 spray by Each Nare route [...] 04/28/2024 11:00 AM EST [place] [address] Molly Cui, [facility] [place] [address] 04/28/2024 2:00 PM EST Office [place] [address] Molly Cui, [facility] [place] [address] documented as of this encounter Procedures Procedure [...] Resulting Agency Comment Unexpected Finding Molly Cui MINERALOGY PROFESSOR IMG MRI ORDERABLES documented in this encounter [...] mLs documented in this encounter Care Teams Technical Inspector Relationship Specialty Start Date End Date Salome Mcarthur, MINERALOGY PROFESSOR [address] [place] [address] PCP - General Family Medicine 05/30/15 12/11/23 documented as of this encounter
--- OUTSIDE RECORDS SUMMARY | 2024-03-23 12:38 | XMS_ITS | Encounter Summary ---
[place] [address] Care Team Providers Care Duplicating Machine Operator Name Role Phone Salome Mcarthur APRN Primary Care Provider [phone] Encounter Details Date Type Department Care Team (Late st Contact Info) Description 10/07/2017 Orders [place] [address] Evy Howard Social History Tobacco Use Types [...] 04/28/2024 11:00 AM [place] [phone] Molly Cui [facility] [place] [address] 04/28/2024 2:00 PM EST Office [place] [phone] Molly Cui [facility] [place] [address] documented as of this encounter Visit Diagnoses Not on filedocumented in this encounter Care Teams Duplicating Machine Operator Relationship Specialty Start Date End Date Salome Mcarthur, LORETO [address] [place] [address] PCP - General Family Medicine 05/30/15 12/11/23 documented as of this encounter
--- OUTSIDE RECORDS SUMMARY | 2024-03-23 12:38 | XMS_ITS | Encounter Summary ---
Author Organization [facility] Address [facility] [place] [address] Care Team Providers Care Portfolio Specialist Name Role Phone Salome Mcarthur APRN Primary Care Provider Encounter Details Date Type Department Care Team (Latest Contact Info) Description 02/26/2018 8:42 AM EST - 02/26/2018 11:59 PM [facility] Hospital En[place] [address] Molly Wallis [facility] [place] [address] Hepatic cirrhosis, unspecified hepatic cirrhosis type, unspecified [...] 04/28/2024 11:00 AM EST Appoint[place] [phone] Molly Wallis, [facility] [place] [address] 04/28/2024 2:00 PM EST Office [place] [phone] Molly Wallis, [facility] [place] [address] documented as of this encounter Procedures Procedure [...] 10:11 am) PATIENT INFO: ID #: ? [id number] ?: ??[birth year] (77 yrs) Name: ? MILKA MENDIETA ?Visit Date: 02/26/2018 09:24 am PERFORMED BY: Performed By: ? Gabi Mtz RDMS Attending: ?Lily GALLO, Jean Claude [place] Referred By: ?MOLLY WALLIS Location: ? [place] SERVICE(S) PROVIDED: ??UABDLIM - Abdominal Limited Survey Single ? 93302 ??Organ or Quadrant - [id number] INDICATIONS: ??Compensated cirrhosis, assess for HCC COMPARISON: [...] 02/26/2018 10:11 am) PATIENT INFO: ID #: [id number] : [birth year] (77 yrs) Name: MILKA MENDIETA Visit Date: 02/26/2018 09:24 am PERFORMED BY: Performed By: Gabi Mtz RDMS Attending: Jean Claude Bautista MD Referred By: MOLLY WALLIS Location: [place] SERVICE(S) PROVIDED: UABDLIM - Abdominal Limited Survey Single 98544 Organ or Quadrant - [id number] INDICATIONS: Compensated cirrhosis, assess for HCC COMPARISON: [...] Report 02/26/2018 10:11 am Molly Wallis APRN [facility] GEN ORDERAB LES documented in this encounter Visit Diagnoses Diagnosis Hepatic cirrhosis, unspecified hepatic cirrhosis type, unspecified whether ascites present documented in this encounter Care Teams Portfolio Specialist Relationship Specialty Start Date End Date Salome Mcarthur APRN [address] [place] [address] PCP - General Family Medicine 05/30/15 12/11/23 documented as of this encounter
--- OUTSIDE RECORDS SUMMARY | 2024-03-23 12:38 | XMS_ITS | Encounter Summary ---
Author Organization [facility] [place] [address] Care Team Providers Care Legal Mediator Name Role Phone Salome Mcarthur APRN Primary Care Provider +1 [phone] Encounter Details Date Type Department Care Team (Late st Contact Info) Description 09/10/2018 Telephone Gastroenterology at [facility] [place] [address] Laura Pike Social History Tobacco Use Types [...] meds?:no Current medical conditions? no BMI:27.21 Prep:proclear Medical Representative?:yes Instructions to patient?:instructions to patient at 4L/Exit 09/10/2018~[facility] documented in this encounter Plan of Treatment Upcoming Encounters Date Type Department Care Team (Late st Contact Info) Description 04/28/2024 11:00 AM EST Appointment [place] [address] Molly Cui, [facility] [address] 04/28/2024 2:00 PM EST Office Visit [place] [address] Molly Cui, [facility] [address] documented as of this encounter Visit Diagnoses Not on filedocumented in this encounter Care Teams Legal Mediator Relationship Specialty Start Date End Date Salome Mcarthur APRN [address] [place] [address] PCP - General Family Medicine 05/30/15 12/11/23 documented as of this encounter
--- OUTSIDE RECORDS SUMMARY | 2024-03-23 12:38 | XMS_ITS | Encounter Summary ---
[place] [address] Care Team Providers Care Chain Maker Hand Name Role Phone Salome Mcarthur APRN Primary Care Provider +1 [phone] Encounter Details Date Type Department Care Team (Late st Contact Info) Description 10/17/2017 External [place] [phone] Malika Cantrell RN Social History Tobacco Use [...] 04/28/2024 11:00 AM [place] [address] Molly Cui [facility] [place] [address] 04/28/2024 2:00 PM EST Office [place] [address] Molly Cui [facility] [place] [address] documented as of this encounter Procedures Procedure Name Priority Date/Time Associated Diagnosis Comments EXTERNAL LAB CBC CMP THYROID RESULTS PANEL Routine 10/17/2017 EXTERNAL LAB CBC CMP THYROID RESULTS PANEL Routine 10/17/2017 documented in this encounter Results * CBC / CMP / Thyroid External Results (10/17/2017) Alpha Fetoprotein 3.0 10/17/2017 Historical Provider MD [facility] RICH * CBC / CMP / Thyroid [...] on filedocumented in this encounter Care Teams Chain Maker Hand Relationship Specialty Start Date End Date Salome Mcarthur, INCIDENT MANAGER [facility] [address] [place] [address] PCP - General Family Medicine 05/30/15 12/11/23 documented as of this encounter
--- OUTSIDE RECORDS SUMMARY | 2024-03-23 12:38 | XMS_ITS | Encounter Summary ---
[place] [address] Care Team Providers Care Police Shift Commander Name Role Phone Salome Mcarthur APRN Primary Care Provider +1 [phone] Encounter Details Date Type Department Care Team (Late st Contact Info) Description 07/15/2018 Orders Only Gastroenterology at [place] [phone] Crista Kyle Social History Tobacco Use Types [...] 04/28/2024 11:00 AM EST Appointment Ultrasound at [place] [phone] Molly Cui [facility] [place] [address] 04/28/2024 2:00 PM EST Office Visit [place] [address] Molly Cui [facility] [place] [address] documented as of this encounter Visit Diagnoses Not on filedocumented in this encounter Care Teams Police Shift Commander Relationship Specialty Start Date End Date Salome Mcarthur, LORETO [address] [place] [address] PCP - General Family Medicine 05/30/15 12/11/23 documented as of this encounter
--- OUTSIDE RECORDS SUMMARY | 2024-03-23 12:38 | XMS_ITS | Encounter Summary ---
[place] [address] Care Team Providers Care Bonding Machine Tender Name Role Phone Salome Mcarthur APRN Primary Care Provider [phone] Reason for Visit * Reason Onset Date Comments Results 10/22/2017 Encounter Details Date Type Department Care Team (Late st Contact Info) Description 10/22/2017 Telephone [place] [phone] Jacque Gale, RN Results Social History Tobacco [...] results of recent CT- Her contact # [phone]- okay to leave . * Telephone Encounter - Jacque Glae RN - 10/22/2017 3:58 PM EDT Pt calling for results of chest CT performed on 10/18 at [facility]. documented in this encounter Plan of Treatment Upcoming Encounters Date Type Department Care Team (Late st Contact Info) Description 04/28/2024 11:00 AM [place] [address] Molly Cui, [facility] [place] [address] 04/28/2024 2:00 PM EST Office [place] [address] Molly Cui, [facility] [place] [address] documented as of this encounter Visit Diagnoses Not on filedocumented in this encounter Care Teams Bonding Machine Tender Relationship Specialty Start Date End Date Salome Mcarthur APRN [address] [place] [address] PCP - General Family Medicine 05/30/15 12/11/23 documented as of this encounter
--- OUTSIDE RECORDS SUMMARY | 2024-03-23 12:38 | XMS_ITS | Encounter Summary ---
Author Organization [facility] [place] [address] Care Team Providers Care Electron Beam Photo Mask Maker Name Role Phone Salome Mcarthur APRN Primary Care Provider +[phone] Reason for Referral * Diagnostic Test (Routine) - Closed Specialty Diagnoses / Procedures Referred By Contruth t Referred To Contact Radiology Diagnoses NAFLD (nonalcoholic fatty liver disease) Procedures MRI Abdomen wwo Contrast (Generic) Molly Cui APRN [facility] [place] [address] [place] [address] Referral ID Status Reason Start Date Expiration Date V isits Requested Visits Authorized [id number] Closed Specialty Service Requested 08/22/2017 08/22/2018 1 1 Reason for Visit * Reason Comments Follow-up Patient is here for a follow up labs. Encounter Details Date Type Department Care Team (Late st Contact Info) Description 08/22/2017 11:30 AM EDT Office [place] [address] Molly Cui HOSPICE MANAGER [facility] [place] [address] NAFLD (nonalcoholic fatty liver disease) [...] mouth every 4 hours as needed. ??? [place]-3 Fatty Acids-Vitamin E (FISH OIL) 1,000 mg [...] mL 300 mL Urethral Once PRN Sandra Beltrán, MD ALLERGIES Allergies Allergen Reactions ??? Codeine [...] Cui APRN Section of Gastroenterology [place] [address] Copy: Salome Mcarthur APRN [address] [facility] [place] [facility] [place] [address] 25 of this 30 minute visit in face to face discussion regarding disease, prognosis and treatment documented in this encounter Plan of Treatment Upcoming Encounters Date Type Department Care Team (Late st Contact Info) Description 04/28/2024 11:00 AM EST [place] [phone] Molly Cui APRN [facility] [place] [address] 04/28/2024 2:00 PM EST Office [place] [phone] Molly Cui APRN [facility] [place] [address] Scheduled Orders Name Type Priority Associated Diagnoses [...] disease documented in this encounter Care Teams Electron Beam Photo Mask Maker Relationship Specialty Start Date End Date Salome Mcarthur APRN [address] [place] [address] PCP - General Family Medicine 05/30/15 12/11/23 documented as of this encounter
--- OUTSIDE RECORDS SUMMARY | 2024-03-23 12:38 | XMS_ITS | Encounter Summary ---
Author Organization [facility] [place] [address] Care Team Providers Care Entry Level Marketing Assistant Name Role Phone Salome Mcarthur APRN Primary Care Provider [phone] Encounter Details Date Type Department Care Team (Latest Contact Info) Description 02/26/2018 9:30 AM EST Laboratory Appointment Lab [address] [place] [address] Hepatic cirrhosis, unspecified hepatic cirrhosis [...] 04/28/2024 11:00 AM EST Appointment [place] [address] Molly Cui [facility] [place] [address] 04/28/2024 2:00 PM EST Office Visit [place] [address] Molly Cui NETWORK SUPPORT ANALYST [facility] GASTROENTEROLOGY [place], [place] [id number] documented as of this encounter Procedures Procedure [...] 10:02 AM EST) Neutrophil % 57.5 % [facility] Neutrophil Absolute 3.52 1.70 - 6.10 x10(3)/[facility] LABORATORY Lymph % 31.0 % [facility] Lymphocytes Abs 1.9 0.9 - 3.2 x10(3)/[facility] LABORATORY Monocyte % 9.1 % [facility] Monocyte Abs 0.6 0.3 - 0.9 x10(3)/[facility] LABORATORY Eos % 1.6 % [facility] Eosinophils Abs 0.1 0.0 - 0.4 x10(3)/[facility] LABORATORY Basophil % 0.5 % [facility] Baso Absolute 0.0 0.0 - 0.1 x10(3)/[facility] LABORATORY Immature Gran % 0.30 % [facility] Comment: Immature granulocytes(IG's)percentage and absolute count will include metamyelocytes, myelocytes, and promyelocytes. Blood smears from CBCs yielding IG's will be scanned manually for concordance. If this scan disagrees with the automated IG or if promyelocytes are noted, a manual differential will be performed. Immature Gran Absolute 0.02 0.00 - 0.04 x10(3)/mcL [facility] Blood specimen (specimen) 02/26/2018 10:02 AM EST 02/26/2018 10:15 AM EST Narrative Resulting Agency Comment Spec In Lab Molly Cui APRN HEMATOLOGY ORDERAB LES [facility] [place] [address] * (ABNORMAL) Hemogram (02/26/2018 10:02 AM EST) White Blood Cell 6.1 4.0 - 9.5 x10(3)/mc L [facility] Red Blood Cell 4.49 4.00 - 5.21 x10(6)/mc L [facility] Hemoglobin 14.1 11.7 - 15.5 gm/dL [facility] Hematocrit 41.4 35.7 - 45.8 % [facility] Mean Cell Volume 92.2 82.6 - 94.4 fL [facility] Mean Cell Hemoglobin 31.4 27.1 - 32.0 pg [facility] Mean Cell Hemoglobin Concentration 34.1 31.7 - 35.0 gm/dL [facility] Platelet 111(L) 145 - 357 x10(3)/mc L [facility] RDW Standard Deviation 42.4 37.0 - 46.0 fL [facility] RDW coefficient of variation 12.5 11.5 - 14.1 % [facility] Mean Platelet Volume 11.8 7.6 - 12.9 fL [facility] NRBC% auto 0.0 % [facility] NRBC Absolute 0.000 0.000 - 0.000 x10(3)/mc L [facility] Blood specimen (specimen) 02/26/2018 10:02 AM EST 02/26/2018 10:15 AM EST Narrative Resulting Agency Comment Spec In Lab Molly Cui NETWORK SUPPORT ANALYST HEMATOLOGY ORDERAB LES [facility] [address] * (ABNORMAL) Comprehensive metabolic panel (non-fasting) (02/26/2018 10:02 AM EST) Glucose 137 65 - 199 mg/dL [facility] Comment:Diabetes: >=200 mg/d L plus symptoms Blood Urea Nitrogen 20(H) 8 - 18 mg/dL [facility] Creatinine 0.64(L) 0.70 - 1.20 mg/dL [facility] Sodium 141 135 - 145 mmol/L [facility] Potassium 4.3 3.5 - 5.0 mmol/L [facility] Comment: Please note: ??Patients with WBC >100,000 may have falsely elevated Potassium levels. ??For accurate Potassium quantification in these patients send serum separator tube (gold top) for subsequent determinations. ??Contact the Clinical Chemistry Laboratory if there are any questions. Chloride 101 98 - 107 mmol/L [facility] Carbon Dioxide 24 22 - 31 mmol/L [facility] Anion Gap 16(H) 5 - 15 mmol/L [facility] Calcium 10.0 8.5 - 10.5 mg/dL [facility] Protein, Total 7.7 6.1 - 8.0 gm/dL [facility] Albumin 4.5 3.2 - 5.2 gm/dL [facility] Aspartate Aminotransferase 24 0 - 30 unit/L [facility] Alanine Aminotransferase 28 0 - 30 unit/L [facility] Alkaline Phosphatase 81 40 - 104 unit/L [facility] Bilirubin, Total 0.4 0.2 - 1.3 mg/dL [facility] Est Glomerular Filtration Rate 87 >=60 mL/min/1. 73 m?? [facility] Comment: The eGFR was calculated using the CKD-EPI equation. As with all creatinine based estimates of kidney function, eGFR values calculated with the CKD-EPI equation are not accurate in patients with acute kidney failure, extremes of body mass or the acutely ill. http://Kiko/[facility] eGFR 100 >=60 mL/min/1. 73 m?? [facility] Comment: The eGFR was calculated using the CKD-EPI equation. As with all creatinine based estimates of kidney function, eGFR values calculated with the CKD-EPI equation are not accurate in patients with acute kidney failure, extremes of body mass or the acutely ill. [email or web address]/[facility] TULSAnkf Blood specimen (specimen) 02/26/2018 10:02 AM EST 02/26/2018 10:15 AM EST Narrative Resulting Agency Comment Spec In Lab Molly Cui APRN CHEMISTRY ORDERABL ES [facility] [place] [address] * Prothrombin Time (02/26/2018 10:02 AM EST) Prothrombin Time 11.9 9.4 - 12.5 sec [facility] International Normalization Ratio 1.1 [facility] Comment: An INR <2.0 indicates [...] APRN HEMATOLOGY ORDERAB LES Performing Organization Address City/[facility]/ZIP Co de Phone Number [facility] [place] [address] * AFP tumor marker (02/26/2018 10:02 AM EST) Alpha Fetoprotein 4.3 <=8.3 ng/mL [facility] Blood specimen (specimen) 02/26/2018 10:02 AM EST 02/26/2018 10:15 AM EST Narrative Resulting Agency Comment Spec In Lab Molly Sharron Basilia DANGELO CHEMISTRY ORDERABL ES Performing Organization Address [facility] Co de Phone Number [facility] [address] documented in this encounter Visit Diagnoses Diagnosis Hepatic cirrhosis, unspecified hepatic cirrhosis type, unspecified whether ascites present NAFLD (nonalcoholic fatty liver disease) Other chronic nonalcoholic liver disease documented in this encounter Care Teams Entry Level Marketing Assistant Relationship Specialty Start Date End Date Salome Mcarthur APRN [address] [place] [address] PCP - General Family Medicine 05/30/15 12/11/23 documented as of this encounter
--- OUTSIDE RECORDS SUMMARY | 2024-03-23 12:38 | XMS_ITS | Encounter Summary ---
[place] [address] Care Team Providers Care Flow Trader Name Role Phone Salome Mcarthur APRN Primary Care Provider [phone] Reason for Referral * Diagnostic Test (Routine) - Closed Specialty Diagnoses / Procedures Referred By Contac t Referred To Contact Radiology Diagnoses Hepatic cirrhosis, unspecified hepatic cirrhosis type, unspecified whether ascites present Procedures MRI Abdomen wwo Contrast (Generic) Molly Cui APRN [facility] [place] [address] [place] [address] Referral ID Status Reason Start Date Expiration Date V isits Requested Visits Authorized [id number] Closed Specialty Service Requested 02/26/2018 02/26/2019 1 1 Reason for Visit * Diagnostic Test (Routine) - Closed Specialty Diagnoses / Procedures Referred By Contac t Referred To Contact Radiology Diagnoses Hepatic cirrhosis, unspecified hepatic cirrhosis type, unspecified whether ascites present Procedures MRI Abdomen wwo Contrast (Generic) Molly Cui APRN [facility] [place] [address] [place] [address] Referral ID Status Reason Start Date Expiration Date V isits Requested Visits Authorized [id number] Closed Specialty Service Requested 02/26/2018 02/26/2019 1 1 Encounter Details Date Type Department Care Team (Latest Contact Info) Description 03/08/2018 10:57 AM EST - 03/08/2018 11:59 PM EST Hospital Encounter MRI [place] [facility] [place] [address] Molly Cui, INSTITUTIONAL AIDE [facility] [place] [address] Hepatic cirrhosis, unspecified hepatic cirrhosis type, unspecified [...] 04/28/2024 11:00 AM [place] [address] Molly Cui, [facility] [place] [address] 04/28/2024 2:00 PM EST Office [place] [phone] Molly Cui, [facility] [place] [address] documented as of this encounter Procedures Procedure [...] demonstrate a somewhat reticular pattern of high [id number] intensity most pronounced in the inferior right [...] made given differences in technique. Recommend reference [facility] CT report for management guidelines. 4. Ectasia [...] mLs documented in this encounter Care Teams Flow Trader Relationship Specialty Start Date End Date Salome Mcarthur APRN [address] [place] [address] PCP - General Family Medicine 05/30/15 12/11/23 documented as of this encounter
--- OUTSIDE RECORDS SUMMARY | 2024-03-23 12:38 | XMS_ITS | Encounter Summary ---
Author Organization [facility] Address [facility] [place] [address] Care Team Providers Care Content Assistant Name Role Phone Salome Mcarthur APRN Primary Care Provider Encounter Details Date Type Department Care Team (Latest Contact Info) Description 10/17/2017 - 10/17/2017 11:59 PM EDT Hospital Encounter Radiology Library at [facility] [place] [address] Molly Cui SOUND EQUIPMENT MECHANIC [facility] [place] [address] Discharge Disposition: Home Social History Tobacco Use [...] by mouth. 02/24/2009 fluticasone (FLONASE) 50 mcg/actuation [place], Suspension 1 spray by Each Nare route [...] EST Appointment [place] [address] Molly Cui APRN [facility] [place] [address] 04/28/2024 2:00 PM EST Office Visit [place] [phone] Molly Cui APRN [facility] [place] [address] documented as of this encounter Procedures Procedure Name Priority Date/Time Associated Diagnosis Comments FILM LIBRARY STORAGE ONLY CT CHEST Routine 10/17/2017 12:00 AM EDT documented in this encounter Results * Film Library- Storage Only CT Chest (10/17/2017 12:00 AM EDT) Narrative [place] - 10/21/2017 8:25 PM EDT This exam is for storage only and is auto-finalizing. Molly Cui APRN IMG FILM LIBRARY O RDERABLES Performing Organization Address City/State/[facility] Co de Phone Number [place], [place] documented in this encounter Visit Diagnoses Not on filedocumented in this encounter Care Teams Content Assistant Relationship Specialty Start Date End Date Salome Mcarthur APRN [address] [place] [address] PCP - General Family Medicine 05/30/15 12/11/23 documented as of this encounter
--- OUTSIDE RECORDS SUMMARY | 2024-03-23 12:38 | XMS_ITS | Encounter Summary ---
Author Organization [facility] [place] [address] Care Team Providers Care Electro Plater Name Role Phone Salome Mcarthur APRN Primary Care Provider [phone] Encounter Details Date Type Department Care Team (Late st Contact Info) Description 09/10/2018 Telephone Cardiology at [address] [phone] Laura Pike Social History Tobacco Use Types [...] 04/28/2024 11:00 AM [place] [address] Molly Cui APRN [facility] [place] [address] 04/28/2024 2:00 PM EST Office [place] [address] Molly Cui APRN [facility] [place] [place] [address] documented as of this encounter Visit Diagnoses Not on filedocumented in this encounter Care Teams Electro Plater Relationship Specialty Start Date End Date Salome Mcarthur APRN [address] [place] [address] PCP - General Family Medicine 05/30/15 12/11/23 documented as of this encounter
--- OUTSIDE RECORDS SUMMARY | 2024-03-23 12:38 | XMS_ITS | Encounter Summary ---
Author Organization [facility] Address [facility] [place] [address] Care Team Providers Care Informaticist Name Role Phone Salome Mcarthur APRN Primary Care Provider [phone] Reason for Visit * Reason Onset Date Comments Other 05/30/2018 Encounter Details Date Type Department Care Team (Late st Contact Info) Description 05/30/2018 Telephone [place] [address] Nelsy Menezes Other Social History Tobacco Use [...] detailed message? Yes Preferred method of communication: [phone] documented in this encounter Plan of Treatment Upcoming Encounters Date Type Department Care Team (Late st Contact Info) Description 04/28/2024 11:00 AM EST Appointment [place] [phone] Molly Cui, [facility] [place] [address] 04/28/2024 2:00 PM EST Office Visit [place] [phone] Molly Cui, [facility] [place] [address] documented as of this encounter Visit Diagnoses Not on filedocumented in this encounter Care Teams Informaticist Relationship Specialty Start Date End Date Salome Mcarthur APRN [address] [place] [address] PCP - General Family Medicine 05/30/15 12/11/23 documented as of this encounter
--- OUTSIDE RECORDS SUMMARY | 2024-03-23 12:38 | XMS_ITS | Encounter Summary ---
Author Organization [facility] [place] [address] Care Team Providers Care Senior Controls Analyst Name Role Phone Salome Mcarthur APRN Primary Care Provider [phone] Reason for Referral * Diagnostic Test (Routine) - Closed Specialty Diagnoses / Procedures Referred By Contruth t Referred To Contact Radiology Diagnoses Hepatic cirrhosis, unspecified hepatic cirrhosis type, unspecified whether ascites present Procedures MRI Abdomen wwo Contrast (Generic) Molly Cui APRN [facility] [place] [address] [place] [address] Referral ID Status Reason Start Date Expiration Date V isits Requested Visits Authorized [id number] Closed Specialty Service Requested 07/14/2018 07/14/2019 1 1 Encounter Details Date Type Department Care Team (Late st Contact Info) Description 07/14/2018 Orders [place] [address] Molly Cui APRN [facility] [place] [address] Hepatic cirrhosis, unspecified hepatic cirrhosis [...] 04/28/2024 11:00 AM [place] [address] Molly Cui, [facility] [place] [address] 04/28/2024 2:00 PM EST Office [place] [address] Molly Cui, [facility] [place] [address] documented as of this encounter Results * (ABNORMAL) Prothrombin Time (09/10/2018 1:46 PM EDT) Pathologist [facility] Prothrombin Time 12.8(H) 9.4 - 12.5 sec [facility] [...] HEMATOLOGY ORDERAB LES [facility] [place] [address] * (ABNORMAL) Comprehensive metabolic panel (non-fasting) (09/10/2018 1:46 PM EDT) Pathologist [facility] Glucose 125 65 - 199 mg/dL [facility] Comment:Diabetes: >=200 mg/d L plus symptoms Blood Urea Nitrogen 18 8 - 18 mg/dL [facility] Creatinine 0.75 0.70 - 1.20 mg/dL [facility] Sodium 139 135 - 145 mmol/L [facility] Potassium 3.9 3.5 - 5.0 mmol/L [facility] Comment: Please note: ??Patients with WBC >100,000 may have falsely elevated Potassium levels. ??For accurate Potassium quantification in these patients send serum separator tube ([facility] top) for subsequent determinations. ??Contact the Clinical Chemistry Laboratory if there are any questions. Chloride 99 98 - 107 mmol/L [facility] Carbon Dioxide 26 22 - 31 mmol/L [facility] Anion Gap 14 5 - 15 mmol/L [facility] Calcium 10.5 8.5 - 10.5 mg/dL [facility] Protein, Total 7.9 6.1 - 8.0 gm/dL [facility] Albumin 4.7 3.2 - 5.2 gm/dL [facility] Aspartate Aminotransferase 39(H) 0 - 30 unit/L [facility] Alanine Aminotransferase 41(H) 0 - 30 unit/L [facility] Alkaline Phosphatase 69 40 - 104 unit/L [facility] Bilirubin, Total 0.7 0.2 - 1.3 mg/dL [facility] Est Glomerular Filtration Rate 77 >=60 mL/min/1. 73 m?? [facility] Comment: The eGFR was calculated using the CKD-EPI equation. As with all creatinine based estimates of kidney function, eGFR values calculated with the CKD-EPI equation are not accurate in patients with acute kidney failure, extremes of body mass or the acutely ill. http://Portfolia/[facility] eGFR 89 >=60 mL/min/1. 73 m?? [facility] Comment: The eGFR was calculated using the CKD-EPI equation. As with all creatinine based estimates of kidney function, eGFR values calculated with the CKD-EPI equation are not accurate in patients with acute kidney failure, extremes of body mass or the acutely ill. [email or web address] Blood specimen (specimen) 09/10/2018 1:46 PM EDT 09/10/2018 2:00 PM EDT Narrative Resulting Agency Comment Spec In Lab Molly A Basilia MANIPULATIVE THERAPY SPECIALIST CHEMISTRY ORDERABL ES [facility] [place] [address] * MRI Abdomen wwo Contrast (Generic) (09/10/2018 [...] documented in this encounter Care Teams Senior Controls Analyst Relationship Specialty Start Date End Date Salome Mcarthur APRN [address] [place] [address] PCP - General Family Medicine 05/30/15 12/11/23 documented as of this encounter
--- OUTSIDE RECORDS SUMMARY | 2024-03-23 12:38 | XMS_ITS | Encounter Summary ---
Author Organization [facility] [place] [address] Care Team Providers Care Chief Accountant Name Role Phone Salome Mcarthur APRN Primary Care Provider [phone] Encounter Details Date Type Department Care Team (Late st Contact Info) Description 10/24/2017 Telephone [place] [address] Molly Wallis APRN [facility] [place] [address] Social History Tobacco Use Types Packs/Day Years [...] they will follow up on CT results. MOLYL WALLIS APRN PCP: Salome Mcarthur APRN [phone] documented in this encounter Plan of Treatment Upcoming Encounters Date Type Department Care Team (Late st Contact Info) Description 04/28/2024 11:00 AM EST [place] [phone] Molly Wallis [facility] [place] [address] 04/28/2024 2:00 PM EST Office [place] [address] Molly Wallis [facility] [address] documented as of this encounter Results * AFP tumor marker (02/26/2018 10:02 AM EST) Alpha Fetoprotein 4.3 <=8.3 ng/mL [facility] Blood specimen (specimen) 02/26/2018 10:02 AM EST 02/26/2018 10:15 AM EST Narrative Resulting Agency Comment Spec In Lab Molly Wallis APRN CHEMISTRY ORDERABL ES [facility] [place] [address] * Prothrombin Time (02/26/2018 10:02 AM EST) Prothrombin Time 11.9 9.4 - 12.5 sec [facility] [...] Lab Molly Wallis LORETO HEMATOLOGY ORDERAB LES [facility] [place] [address] * (ABNORMAL) Comprehensive metabolic panel (non-fasting) (02/26/2018 10:02 AM EST) Glucose 137 65 - 199 mg/dL [facility] Comment:Diabetes: >=200 mg/d L plus symptoms Blood Urea Nitrogen 20(H) 8 - 18 mg/dL [facility] Creatinine 0.64(L) 0.70 - 1.20 mg/dL [facility] Sodium 141 135 - 145 mmol/L [facility] Potassium 4.3 3.5 - 5.0 mmol/L [facility] Comment: Please note: ??Patients with WBC >100,000 may have falsely elevated Potassium levels. ??For accurate Potassium quantification in these patients send serum separator tube (gold top) for subsequent determinations. ??Contact the Clinical Chemistry Laboratory if there are any questions. Chloride 101 98 - 107 mmol/L [facility] Carbon Dioxide 24 22 - 31 mmol/L [facility] Anion Gap 16(H) 5 - 15 mmol/L [facility] Calcium 10.0 8.5 - 10.5 mg/dL [facility] Protein, Total 7.7 6.1 - 8.0 gm/dL [facility] Albumin 4.5 3.2 - 5.2 gm/dL [facility] Aspartate Aminotransferase 24 0 - 30 unit/L [facility] Alanine Aminotransferase 28 0 - 30 unit/L [facility] Alkaline Phosphatase 81 40 - 104 unit/L [facility] Bilirubin, Total 0.4 0.2 - 1.3 mg/dL [facility] Est Glomerular Filtration Rate 87 >=60 mL/min/1. 73 m?? [facility] Comment: The eGFR was calculated using the CKD-EPI equation. As with all creatinine based estimates of kidney function, eGFR values calculated with the CKD-EPI equation are not accurate in patients with acute kidney failure, extremes of body mass or the acutely ill. http://[employer]/[facility] NORMANnkf eGFR 100 >=60 mL/min/1. 73 m?? [facility] Comment: The eGFR was calculated using the CKD-EPI equation. As with all creatinine based estimates of kidney function, eGFR values calculated with the CKD-EPI equation are not accurate in patients with acute kidney failure, extremes of body mass or the acutely ill. [email or web address]/DHnkf Blood specimen (specimen) 02/26/2018 10:02 AM EST 02/26/2018 10:15 AM EST Narrative Resulting Agency Comment Spec In Lab Molly Wallis APRN CHEMISTRY ORDERABL ES Performing Organization Address City/State/[facility] Co de Phone Number [facility] [place] [phone] * US Abdomen Limited (02/26/2018 9:27 AM [...] 10:11 am) PATIENT INFO: ID #: ? [id number] ?: ??[birth year] (77 yrs) Name: ? MILKA MENDIETA ?Visit Date: 02/26/2018 09:24 am PERFORMED BY: Performed By: ? Gabi Mtz RDMS Attending: ?Lily GALLO, Jean Claude Lancaster Referred By: ?MOLLY WALLIS Location: ? [place] SERVICE(S) PROVIDED: ??UABDLIM - Abdominal Limited Survey Single ? [id number] ??Organ or Quadrant - [id number] INDICATIONS: ??Compensated cirrhosis, assess for HCC COMPARISON: [...] 02/26/2018 10:11 am) PATIENT INFO: ID #: [id number] : 42 (77 yrs) Name: MILKA MENDIETA Visit Date: 02/26/2018 09:24 am PERFORMED BY: Performed By: Gabi Mtz RDMS Attending: Jean Claude Bautista MD Referred By: MOLLY WALLIS Location: [place] SERVICE(S) PROVIDED: UABDLIM - Abdominal Limited Survey Single 43737 Organ or Quadrant - [id number] INDICATIONS: Compensated cirrhosis, assess for HCC COMPARISON: [...] Report 02/26/2018 10:11 am Molly Wallis APRN [facility] GEN ORDERAB LES documented in this encounter Visit Diagnoses Diagnosis Hepatic cirrhosis, unspecified hepatic cirrhosis type, unspecified whether ascites present Hepatic cirrhosis, unspecified hepatic cirrhosis type, unspecified whether ascites present documented in this encounter Care Teams Chief Accountant Relationship Specialty Start Date End Date Salome Mcarthur APRN [address] [place] [address] PCP - General Family Medicine 05/30/15 12/11/23 documented as of this encounter
--- OUTSIDE RECORDS SUMMARY | 2024-03-23 12:38 | XMS_ITS | Encounter Summary ---
Author Organization [facility] [place] [address] Care Team Providers Care Engineering Group Manager Name Role Phone Salome Mcarthur APRN Primary Care Provider [phone] Encounter Details Date Type Department Care Team (Latest Contact Info) Description 09/10/2018 12:35 PM EDT Laboratory Appointment Lab [address] [place] [address] Hepatic cirrhosis, unspecified hepatic cirrhosis [...] 04/28/2024 11:00 AM EST Appointment [place] [address] Molly Cui [facility] [place] [address] 04/28/2024 2:00 PM EST Office Visit [place] [address] Molly Cui [facility] [place] [address] documented as of this encounter [...] LABORATORY Neutrophil Absolute 4.28 1.70 - 6.10 x10(3)/[facility] Lymph % 36.5 % [facility] Lymphocytes Abs 2.9 0.9 - 3.2 x10(3)/[facility] LABORATORY Monocyte % 7.6 % [facility] Monocyte Abs 0.6 0.3 - 0.9 x10(3)/[facility] LABORATORY Eos % 2.0 % [facility] Eosinophils Abs 0.2 0.0 - 0.4 x10(3)/[facility] LABORATORY Basophil % 0.5 % [facility] Baso Absolute 0.0 0.0 - 0.1 x10(3)/[facility]ORATORY Immature Gran % 0.40 % [facility] Comment: Immature granulocytes(IG's)percentage and absolute count will include metamyelocytes, myelocytes, and promyelocytes. Blood smears from CBCs yielding IG's will be scanned manually for concordance. If this scan disagrees with the automated IG or if promyelocytes are noted, a manual differential will be performed. Immature Gran Absolute 0.03 0.00 - 0.04 x10(3)/mcL [facility] Blood specimen (specimen) 09/10/2018 1:46 PM EDT 09/10/2018 2:00 PM EDT Narrative Resulting Agency Comment Spec In Lab Molly Cui TELEVISION CAMERA OPERATOR HEMATOLOGY ORDERAB LES [facility] [place] [address] * (ABNORMAL) Hemogram (09/10/2018 1:46 PM EDT) White Blood Cell 8.1 4.0 - 9.5 x10(3)/mc L [facility] Red Blood Cell 4.63 4.00 - 5.21 x10(6)/[facility]ORATORY Hemoglobin 14.6 11.7 - 15.5 gm/dL [facility] Hematocrit 43.3 35.7 - 45.8 % [facility] Mean Cell Volume 93.5 82.6 - 94.4 fL [facility] Mean Cell Hemoglobin 31.5 27.1 - 32.0 pg [facility] Mean Cell Hemoglobin Concentration 33.7 31.7 - 35.0 gm/dL [facility] Platelet 135(L) 145 - 357 x10(3)/mc L [facility] RDW Standard Deviation 44.0 37.0 - 46.0 [facility]ORY RDW coefficient of variation 12.8 11.5 - 14.1 % [facility] Mean Platelet Volume 11.3 7.6 - 12.9 fL [facility] NRBC% auto 0.0 % [facility] NRBC Absolute 0.000 0.000 - 0.000 x10(3)/ L [facility] Blood specimen (specimen) 09/10/2018 1:46 PM EDT 09/10/2018 2:00 PM EDT Narrative Resulting Agency Comment Spec In Lab Mollyjuan a Cui LORETO HEMATOLOGY ORDERAB LES [facility] [place] [address] * (ABNORMAL) Comprehensive metabolic panel (non-fasting) (09/10/2018 1:46 PM EDT) Glucose 125 65 - 199 mg/dL [facility] Comment:Diabetes: >=200 mg/d L plus symptoms Blood Urea Nitrogen 18 8 - 18 mg/dL [facility] Creatinine 0.75 0.70 - 1.20 mg/dL [facility] Sodium 139 135 - 145 mmol/L [facility] Potassium 3.9 3.5 - 5.0 mmol/L [facility] Comment: Please note: ??Patients with WBC >100,000 may have falsely elevated Potassium levels. ??For accurate Potassium quantification in these patients send serum separator tube (gold top) for subsequent determinations. ??Contact the Clinical Chemistry Laboratory if there are any questions. Chloride 99 98 - 107 mmol/L [facility] Carbon Dioxide 26 22 - 31 mmol/L [facility] Anion Gap 14 5 - 15 mmol/L [facility] Calcium 10.5 8.5 - 10.5 mg/dL [facility] Protein, Total 7.9 6.1 - 8.0 gm/dL [facility] Albumin 4.7 3.2 - 5.2 gm/dL [facility] Aspartate Aminotransferase 39(H) 0 - 30 unit/L [facility] Alanine Aminotransferase 41(H) 0 - 30 unit/L [facility] Alkaline Phosphatase 69 40 - 104 unit/L [facility] Bilirubin, Total 0.7 0.2 - 1.3 mg/dL [facility] Est Glomerular Filtration Rate 77 >=60 mL/min/1. 73 m?? [facility] Comment: The eGFR was calculated using the CKD-EPI equation. As with all creatinine based estimates of kidney function, eGFR values calculated with the CKD-EPI equation are not accurate in patients with acute kidney failure, extremes of body mass or the acutely ill. http://[employer]/[facility] ATOKAnkf eGFR 89 >=60 mL/min/1. 73 m?? [facility] Comment: The eGFR was calculated using the CKD-EPI equation. As with all creatinine based estimates of kidney function, eGFR values calculated with the CKD-EPI equation are not accurate in patients with acute kidney failure, extremes of body mass or the acutely ill. http://[employer]/[facility] ATOKAnkf Blood specimen (specimen) 09/10/2018 1:46 PM EDT 09/10/2018 2:00 PM EDT Narrative Resulting Agency Comment Spec In Lab Molly Cui APRN CHEMISTRY ORDERABL ES Performing Organization Address [facility] de Phone Number [facility] [place] [address] * (ABNORMAL) Prothrombin Time (09/10/2018 1:46 PM EDT) Prothrombin Time 12.8(H) 9.4 - 12.5 sec [facility] International Normalization Ratio 1.1 [facility] Comment: An INR <2.0 [...] APRN HEMATOLOGY ORDERAB LES Performing Organization Address [facility]/ZIP Co [place] [address] documented in this encounter Visit Diagnoses Diagnosis Hepatic cirrhosis, unspecified hepatic cirrhosis type, unspecified whether ascites present documented in this encounter Care Teams Engineering Group Manager Relationship Specialty Start Date End Date Salome Mcarthur APRN [address] [place] [address] PCP - General Family Medicine 05/30/15 12/11/23 documented as of this encounter
--- OUTSIDE RECORDS SUMMARY | 2024-03-23 12:38 | XMS_ITS | Encounter Summary ---
Author Organization [place] [address] Care Team Providers Care Crepe Laminator Operator Name Role Phone Salome Mcarthur APRN Primary Care Provider [phone] Encounter Details Date Type Department Care Team (Late st Contact Info) Description 10/07/2017 Telephone [place] [address] Evy Howard Social History Tobacco [...] encounter Miscellaneous Notes * Telephone Encounter - vEy Petit - 10/07/2017 9:54 AM EDT Call to patient to schedule Chest CT as ordered by Molly Cui APRN. Patient would like this kavin done at her local hospital. I have faxed order to [facility] and have asked them to call her to schedule. documented in this encounter Plan of Treatment Upcoming Encounters Date Type Department Care Team (Late st Contact Info) Description 04/28/2024 11:00 AM EST Appointment [place] [phone] Molly Cui APRN [facility] [place] [address] 04/28/2024 2:00 PM EST Office Visit [place] [address] Molly Cui APRN [facility] [place] [address] documented as of this encounter Visit Diagnoses Not on filedocumented in this encounter Care Teams Crepe Laminator Operator Relationship Specialty Start Date End Date Salome Mcarthur APRN [address] [place] [address] PCP - General Family Medicine 05/30/15 12/11/23 documented as of this encounter
--- OUTSIDE RECORDS SUMMARY | 2024-03-23 12:38 | XMS_ITS | Encounter Summary ---
Author Organization [facility] Address [facility] [place] [address] Care Team Providers Care Support Team Assoc Name Role Phone Salome Mcarthur APRN Primary Care Provider [phone] Encounter Details Date Type Department Care Team (Late st Contact Info) Description 09/23/2017 Orders [place] [address] Molly Wallis APRN [facility] [place] [address] Lung nodule Social History Tobacco Use Types [...] 1-2 months, per patient preference Will ask electrician bus to contact. MOLLY WALLIS APRN documented in this encounter Plan of Treatment Upcoming Encounters Date Type Department Care Team (Late st Contact Info) Description 04/28/2024 11:00 AM EST [place] [address] Molly Wallis, [facility] [place] [address] 04/28/2024 2:00 PM EST Office [place] [address] Molly Wallis, [facility] [place] [address] documented as of this encounter Visit Diagnoses Diagnosis Lung nodule Solitary pulmonary nodule documented in this encounter Care Teams Support Team Assoc Relationship Specialty Start Date End Date Salome Mcarthur, KILN PUSHER [facility] [address] [place] [address] PCP - General Family Medicine 05/30/15 12/11/23 documented as of this encounter
--- OUTSIDE RECORDS SUMMARY | 2024-03-23 12:38 | XMS_ITS | Encounter Summary ---
Author Organization [facility] Address [facility] [place] [address] Care Team Providers Care Sales Representative Rural [employer] Name Role Phone Salome Mcarthur APRN Primary Care Provider Encounter Details Date Type Department Care Team (Latest Contact Info) Description 08/22/2017 9:14 AM EDT - 08/22/2017 11:59 PM EDT Hospital Encounter [place] [address] Molly Wallis DRUM ATTENDANT [facility] [address] NAFLD (nonalcoholic fatty liver disease) Discharge Disposition: [...] by mouth. 02/24/2009 fluticasone (FLONASE) 50 mcg/actuation [place], Suspension 1 spray by Each Nare route [...] EST Appointment [place] [address] Molly Wallis APRN [facility] [place] [address] 04/28/2024 2:00 PM EST Office Visit [place] [address] Molly Wallis APRN [facility] [place] [address] documented as of this encounter Procedures Procedure [...] 12:24 pm) PATIENT INFO: ID #: ? [id number] ?: ??[birth year] (77 yrs) Name: ? MILKA MENDIETA ?Visit Date: 08/22/2017 09:52 am PERFORMED BY: Performed By: ? Mary HI, ??Lis Attending: ?Jaja GALLO, Sumi Kang Resident: ? Aryan GALLO, Estephanie Nolen Referred By: ?MOLLY WALLIS Secondary Phy.: ?? MOLLY WALLIS DRUM ATTENDANT Location: ? [place] SERVICE(S) PROVIDED: ??BD - Abdominal Complete Survey - [id number] ?[id number] INDICATIONS: ??Cirrhosis, survey for hepatoma COMPARISON: RUQ [...] abdomen. Resulting Agency Comment Unexpected Finding Molly Sharron Wallis APRN IMG US GEN ORDERAB LES documented in this encounter Visit Diagnoses Diagnosis NAFLD (nonalcoholic fatty liver disease) Other chronic nonalcoholic liver disease documented in this encounter Care Teams Sales Representative [employer] Relationship Specialty Start Date End Date Salome Mcarthur APRN [address] [place] [address] PCP - General Family Medicine 05/30/15 12/11/23 documented as of this encounter
--- OUTSIDE RECORDS SUMMARY | 2024-03-23 12:38 | XMS_ITS | Encounter Summary ---
[place] [address] Care Team Providers Care Director Hedis Name Role Phone Salome Mcarthur APRN Primary Care Provider [phone] Encounter Details Date Type Department Care Team (Late st Contact Info) Description 09/04/2017 Orders [place] [address] Evy Howard Social History Tobacco Use Types [...] 11:00 AM EST Appointment [place] [address] Molly Cui [facility] [place] [address] 04/28/2024 2:00 PM EST Office Visit [place] [address] Molly Cui [facility] [place] [address] documented as of this encounter Visit Diagnoses Not on filedocumented in this encounter Care Teams Director Hedis Relationship Specialty Start Date End Date Salome Mcarthur, LORETO [address] [place] [address] PCP - General Family Medicine 05/30/15 12/11/23 documented as of this encounter
--- OUTSIDE RECORDS SUMMARY | 2024-03-23 12:38 | XMS_ITS | Encounter Summary ---
[place] [address] Care Team Providers Care Research Professional Name Role Phone Salome Mcarthur APRN Primary Care Provider [phone] Reason for Referral * Diagnostic Test (Routine) - Closed Specialty Diagnoses / Procedures Referred By Contac t Referred To Contact Radiology Diagnoses Hepatic cirrhosis, unspecified hepatic cirrhosis type, unspecified whether ascites present Procedures MRI Abdomen wwo Contrast (Generic) Molly Cui APRN [facility] GASTROENTEROLOGY [place] [address] [place] [address] Referral ID Status Reason Start Date Expiration Date V isits Requested Visits Authorized [id number] Closed Specialty Service Requested 07/14/2018 07/14/2019 1 1 Reason for Visit * Diagnostic Test (Routine) - Closed Specialty Diagnoses / Procedures Referred By Contac t Referred To Contact Radiology Diagnoses Hepatic cirrhosis, unspecified hepatic cirrhosis type, unspecified whether ascites present Procedures MRI Abdomen wwo Contrast (Generic) Molly Cui APRN [facility] GASTROENTEROLOGY [place] [address] [place] [address] Referral ID Status Reason Start Date Expiration Date V isits Requested Visits Authorized [id number] Closed Specialty Service Requested 07/14/2018 07/14/2019 1 1 Encounter Details Date Type Department Care Team (Latest Contact Info) Description 09/10/2018 11:50 AM EDT - 09/10/2018 11:59 PM EDT Hospital Encounter MRI [place] [address] Molly Cui APRN [facility] [place] [address] Hepatic cirrhosis, unspecified hepatic cirrhosis type, unspecified [...] protection 06/06/2009 fluticasone propionate (FLONASE) 50 mcg/actuation [place], Suspension 1 spray daily. pramipexole (MIRAPEX) 0.125 [...] 04/28/2024 11:00 AM EST Appoint[place] [address] Molly Cui, [facility] GASTROENTEROLOGY [place] [address] 04/28/2024 2:00 PM EST Office Visit [place] [address] Molly Cui [facility] GASTROENTEROLOGY [place] [address] documented as of this encounter Procedures Procedure [...] mLs documented in this encounter Care Teams Research Professional Relationship Specialty Start Date End Date Salome Mcarthur APRN [address] [place] [address] PCP - General Family Medicine 05/30/15 12/11/23 documented as of this encounter
--- OUTSIDE RECORDS SUMMARY | 2024-03-23 12:38 | XMS_ITS | Encounter Summary ---
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 Pharmacy [facility] Decision pending documented in this encounter Plan of Treatment Upcoming Encounters Date Type Department Care Team (Late st Contact Info) Description 04/28/2024 11:00 AM EST Appoint[place] [address] Molly Cui, FILM PR[employer] [facility] [place] [address] 04/28/2024 2:00 PM EST Office [place] [phone] Molly Cui, [facility] [address] documented as of this encounter Visit Diagnoses Not on filedocumented in this encounter Care Teams Network Systems Operator Relationship Specialty Start Date End Date Salome Mcarthur APRN [address] [place] [address] PCP - General Family Medicine 05/30/15 12/11/23 documented as of this encounter
--- OUTSIDE RECORDS SUMMARY | 2024-03-23 12:38 | XMS_ITS | Encounter Summary ---
Author Organization [facility] [place] [address] Care Team Providers Care Armored Transport Service Manager Name Role Phone Salome Mcarthur APRN Primary Care Provider [phone] Reason for Referral * Diagnostic Test (Routine) - Closed Specialty Diagnoses / Procedures Referred By Contac t Referred To Contact Radiology Diagnoses Hepatic cirrhosis, unspecified hepatic cirrhosis type, unspecified whether ascites present Procedures MRI Abdomen wwo Contrast (Generic) Molly Cui APRN [facility] [place] [address] [place] [address] Referral ID Status Reason Start Date Expiration Date V isits Requested Visits Authorized [id number] Closed Specialty Service Requested 02/26/2018 02/26/2019 1 1 Encounter Details Date Type Department Care Team (Late st Contact Info) Description 02/26/2018 11:00 AM EST Office Visit [place] [address] Molly Cui APRN [facility] [place] [address] Hepatic cirrhosis, unspecified hepatic cirrhosis [...] mouth as needed. Reported on 08/21/2016 ??? [place]-3 Fatty Acids-Vitamin E (FISH OIL) 1,000 mg [...] Cui APRN Section of Gastroenterology [place] [address] Copy: Salome Mcarthur APRN [address] / [place] [id number] 25 of this 30 minute visit in face to face discussion regarding disease, prognosis and treatment documented in this encounter Plan of Treatment Upcoming Encounters Date Type Department Care Team (Late st Contact Info) Description 04/28/2024 11:00 AM EST Appointment [place] [address] Molly Cui, [facility] [place] [address] 04/28/2024 2:00 PM EST Office Visit Gastroenterology at [facility] [place] [phone] Molly Cui, MANAGER TRACK [facility] [place] [address] documented as of this encounter Results * [...] demonstrate a somewhat reticular pattern of high L9lhbyja intensity most pronounced in the inferior right [...] made given differences in technique. Recommend reference [facility] report for management guidelines. 4. Ectasia [...] present documented in this encounter Care Teams Armored Transport Service Manager Relationship Specialty Start Date End Date Salome Mcarthur APRN [address] [place] [address] PCP - General Family Medicine 05/30/15 12/11/23 documented as of this encounter
--- OUTSIDE RECORDS SUMMARY | 2024-03-23 12:38 | XMS_ITS | Encounter Summary ---
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4 % [facility] Lymphocytes Abs 2.4 0.9 - 3.2 x10(3)/[facility] Monocyte % 7.9 % [facility] Monocyte Abs 0.6 0.3 - 0.9 x10(3)/[facility] Eos % 1.7 % [facility] Eosinophils Abs 0.1 0.0 - 0.4 x10(3)/[facility] Basophil % 0.4 % [facility] Baso Absolute 0.0 0.0 - 0.1 x10(3)/[facility] Immature Gran % 0.30 % [facility] Comment: Immature granulocytes(IG's)percentage and absolute count will include metamyelocytes, myelocytes, and promyelocytes. Blood smears from CBCs yielding IG's will be scanned manually for concordance. If this scan disagrees with the automated IG or if promyelocytes are noted, a manual differential will be performed. Immature Gran Absolute 0.02 0.00 - 0.04 x10(3)/[facility] Blood specimen (specimen) 02/22/2017 9:29 AM EST 02/22/2017 9:33 AM EST Narrative Resulting Agency Comment Spec In Lab Molly Cui [facility] HEMATOLOGY ORDERAB LES [facility] [place] [address] * (ABNORMAL) Hemogram (02/22/2017 9:29 AM EST) White Blood Cell 7.4 4.0 - 9.5 x10(3)/mc L [facility] Red Blood Cell 4.49 4.00 - 5.21 x10(6)/mc L [facility] Hemoglobin 14.3 11.7 - 15.5 gm/dL [facility] Hematocrit 40.5 35.7 - 45.8 % [facility] Mean Cell Volume 90.2 82.6 - 94.4 fL [facility] Mean Cell Hemoglobin 31.8 27.1 - 32.0 pg [facility] Mean Cell Hemoglobin Concentration 35.3(H) 31.7 - 35.0 gm/dL [facility] Platelet 139(L) 145 - 357 x10(3)/mc L [facility] RDW Standard Deviation 40.0 37.0 - 46.0 fL [facility] RDW coefficient of variation 12.2 11.5 - 14.1 % [facility] Mean Platelet Volume 11.0 7.6 - 12.9 fL [facility] NRBC% auto 0.0 % [facility] NRBC Absolute 0.000 0.000 - 0.000 x10(3)/mc L [facility] Blood specimen (specimen) 02/22/2017 9:29 AM EST 02/22/2017 9:33 AM EST Narrative Resulting Agency Comment Spec In Lab Mollyjuan a Cui FIELD CROP FARM WORKER HEMATOLOGY ORDERAB LES Performing Organization Address City[facility] de Phone Number [facility] [place] [address] * Prothrombin Time (02/22/2017 9:29 AM EST) Pathologist [facility] Prothrombin Time 13.3 11.8 - 14.0 sec [facility] International Normalization Ratio 1.0 0.9 - 1.1 [facility] Comment: [...] APRN HEMATOLOGY ORDERAB LES Performing Organization Address [facility] Co de Phone Number [facility] [place] [address] * (ABNORMAL) Comprehensive metabolic panel (non-fasting) (02/22/2017 9:29 AM EST) Pathologist [facility] Glucose 209(H) 65 - 199 mg/dL [facility] Comment:Diabetes: >=200 mg/d L plus symptoms Blood Urea Nitrogen 18 8 - 18 mg/dL [facility] Creatinine 0.64(L) 0.70 - 1.20 mg/dL [facility] Sodium 136 135 - 145 mmol/L [facility] Potassium 4.2 3.5 - 5.0 mmol/L [facility] Comment: Please note: ??Patients with WBC >100,000 may have falsely elevated Potassium levels. ??For accurate Potassium quantification in these patients send serum separator tube (gold top) for subsequent determinations. ??Contact the Clinical Chemistry Laboratory if there are any questions. Chloride 96(L) 98 - 107 mmol/L [facility] Carbon Dioxide 26 22 - 31 mmol/L [facility] Anion Gap 14 5 - 15 mmol/L [facility] Calcium 10.2 8.5 - 10.5 mg/dL [facility] Protein, Total 7.1 6.1 - 8.0 gm/dL [facility] Albumin 4.6 3.2 - 5.2 gm/dL [facility] Aspartate Aminotransferase 26 0 - 30 unit/L [facility] Alanine Aminotransferase 29 0 - 30 unit/L [facility] Alkaline Phosphatase 74 40 - 104 unit/L [facility] Bilirubin, Total 0.4 0.2 - 1.3 mg/dL [facility] Est Glomerular Filtration Rate >60 >=60 [facility] Comment: The reported eGFR should be multiplied by 1.2 for patients. The MDRD is not an appropriate measure of renal function for patients with body mass extremes or in patients with acute kidney failure. 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
--- OUTSIDE RECORDS SUMMARY | 2024-03-23 12:38 | XMS_ITS | Encounter Summary ---
Author [facility] [place] [address] Care Team Providers Care Loss Prevention Associate Name Role Phone Salome Mcarthur APRN Primary Care Provider [phone] Reason for Visit * Reason Comments Follow-up Encounter Details Date Type Department Care Team (Late st Contact Info) Description 09/10/2018 1:30 PM EDT Office [place] [address] Molly Wallis APRN [facility] [place] [address] Hepatic cirrhosis, unspecified hepatic cirrhosis type, unspecified [...] Refill ??? fluticasone propionate (FLONASE) 50 mcg/actuation [place], Suspension 1 spray daily. ??? pramipexole (MIRAPEX) [...] mouth every 4 hours as needed. ??? [place]-3 Fatty Acids-Vitamin E (FISH OIL) 1,000 [...] Wallis APRN Section of Gastroenterology [place] [address] Copy: Salome Mcarthur APRN [address] / [place] [address] 25 of this 30 minute visit in face to face discussion regarding disease, prognosis and treatment documented in this encounter Plan of Treatment Upcoming Encounters Date Type Department Care Team (Late st Contact Info) Description 04/28/2024 11:00 AM EST [place] [address] Molly Wallis APRN [facility] [place] [address] 04/28/2024 2:00 PM EST Office [place] [address] Molly Wallis APRN [facility] [place] [address] documented as of this encounter Results * (ABNORMAL) Prothrombin Time (03/12/2019 11:39 AM EST) Prothrombin Time 13.5(H) 9.4 - 12.5 sec [facility] International Normalization Ratio 1.2 [facility] Comment: An INR <2.0 [...] APRN HEMATOLOGY ORDERAB LES [facility] [place] [address] * (ABNORMAL) Comprehensive metabolic panel (non-fasting) (03/12/2019 11:39 AM EST) Glucose 156 65 - 199 mg/dL [facility] Comment:Diabetes: >=200 mg/d L plus symptoms Blood Urea Nitrogen 19(H) 8 - 18 mg/dL [facility] Creatinine 0.64(L) 0.70 - 1.20 mg/dL [facility] Sodium 143 135 - 145 mmol/L [facility] Potassium 4.1 3.5 - 5.0 mmol/L [facility] Comment: Please note: ??Patients with WBC >100,000 may have falsely elevated Potassium levels. ??For accurate Potassium quantification in these patients send serum separator tube (gold top) for subsequent determinations. ??Contact the Clinical Chemistry Laboratory if there are any questions. Chloride 102 98 - 107 mmol/L [facility] Carbon Dioxide 26 22 - 31 mmol/L [facility] Anion Gap 15 5 - 15 mmol/L [facility] Calcium 10.1 8.5 - 10.5 mg/dL [facility] Protein, Total 7.9 6.1 - 8.0 gm/dL [facility] Albumin 4.4 3.2 - 5.2 gm/dL [facility] Aspartate Aminotransferase 29 0 - 30 unit/L [facility] Alanine Aminotransferase 27 0 - 30 unit/L [facility] Alkaline Phosphatase 91 35 - 105 unit/L [facility] Bilirubin, Total 0.6 0.2 - 1.3 mg/dL [facility] Est Glomerular Filtration Rate 86 >=60 mL/min/1. 73 m?? [facility] Comment: The eGFR was calculated using the CKD-EPI equation. As with all creatinine based estimates of kidney function, eGFR values calculated with the CKD-EPI equation are not accurate in patients with acute kidney failure, extremes of body mass or the acutely ill. http://Streetline/DHMCnkf eGFR 100 >=60 mL/min/1. 73 m?? [facility] Comment: The eGFR was calculated using the CKD-EPI equation. As with all creatinine based estimates of kidney function, eGFR values calculated with the CKD-EPI equation are not accurate in patients with acute kidney failure, extremes of body mass or the acutely ill. http://Streetline/DHMCnkf Blood specimen (specimen) 03/12/2019 11:39 AM EST 03/12/2019 11:53 AM EST Narrative Resulting Agency Comment Spec In Lab Molly Wallis APRN CHEMISTRY ORDERABL ES [facility] [place] [address] * US Abdomen Limited Hepatology Protocol (03/12/2019 [...] report, please contact the number below. ? Jean Claude Bautista, Staff Physician Electronically Signed Final Report ?? 03/12/2019 01:55 pm Narrative 03/12/2019 1:55 PM EST Abdominal ? (Signed Final 03/12/2019 01:55 pm) PATIENT INFO: ID #: ? [id number] ?: ??[birth year] (78 yrs) Name: ? MILKA MENDIETA ?Visit Date: 03/12/2019 11:07 am PERFORMED BY: Performed By: ? Tigist Castellanos RDMS Attending: ?Lily GALLO, Jean Claude [place] Resident: ? Ruchi GALLO, Kal Montesinos Referred By: ?MOLLY WALLIS Secondary Phy.: ?? MOLLY WALLIS ATTENDANT COIN OPERATED LAUNDRY Location: ? [place] SERVICE(S) PROVIDED: ??UABDLIM - Hepatology Protocol - Abdominal ? [id number] ??Limited Survey Single Organ or Quadrant - ??[id number] INDICATIONS: ??cirrhosis, survey for hcc ------ LIVER: [...] 03/12/2019 01:55 pm) PATIENT INFO: ID #: [id number] : [birth year] (78 yrs) Name: MILKA MENDIETA Visit Date: 03/12/2019 11:07 am PERFORMED BY: Performed By: Tigist Castellanos RDMS Attending: Jean Claude Bautista MD Resident: Kal Hopper MD Referred By: MOLLY WALLIS Secondary Phy.: MOLLY WALLIS APRN Location: [place] SERVICE(S) PROVIDED: UABDLIM - Hepatology Protocol - Abdominal [id number] Limited Survey Single Organ or Quadrant - [id number] INDICATIONS: cirrhosis, survey for hcc ------ LIVER: [...] Final Report 03/12/2019 01:55 pm Molly Wallis ATTENDANT COIN OPERATED LAUNDRY IMG GEN ORDERAB LES documented in this encounter Visit Diagnoses Diagnosis Hepatic cirrhosis, unspecified hepatic cirrhosis type, unspecified whether ascites present Hepatic cirrhosis, unspecified hepatic cirrhosis type, unspecified whether ascites present documented in this encounter Care Teams Loss Prevention Associate Relationship Specialty Start Date End Date Salome Mcarthur APRN [address] [place] [address] PCP - General Family Medicine 05/30/15 12/11/23 documented as of this encounter
--- OUTSIDE RECORDS SUMMARY | 2024-03-23 12:38 | XMS_ITS | Encounter Summary ---
Author Organization [facility] [place] [address] Care Team Providers Care General Road Production Manager Name Role Phone Salome Mcarthur APRN Primary Care Provider [phone] Reason for Visit * Reason Onset Date Comments Results 03/13/2018 Encounter Details Date Type Department Care Team (Late st Contact Info) Description 03/13/2018 Telephone [place] [address] Jacque Gale, RN Results Social History Tobacco [...] 04/28/2024 11:00 AM EST [place] [address] Molly Cui, [facility] [place] [address] 04/28/2024 2:00 PM EST Office [place] [address] Molly Cui, [facility] [place] [address] documented as of this encounter Visit Diagnoses Not on filedocumented in this encounter Care Teams General Road Production Manager Relationship Specialty Start Date End Date Salome Mcarthur APRN [address] [place] [address] PCP - General Family Medicine 05/30/15 12/11/23 documented as of this encounter
--- OUTSIDE RECORDS SUMMARY | 2024-03-23 12:38 | XMS_ITS | Encounter Summary ---
Author Organization [facility] [address] Care Team Providers Care Telegraphic Typewriter Repairer Name Role Phone Salome Mcarthur APRN Primary Care Provider [phone] Reason for Visit * Reason Comments Follow-up Encounter Details Date Type Department Care Team (Late st Contact Info) Description 02/22/2017 1:00 PM EST Office [place] [address] Lani Wallis APRN [facility] [place] [address] NAFLD (nonalcoholic fatty liver disease) Social History [...] HEPATOLOGY Follow up Visit Nick Mendieta 1940 MANAGER OF CREATIVE SERVICES: LANI WALLIS APRN PCP: Salome Mcarthur APRN [...] mouth every 4 hours as needed. ??? [place]-3 Fatty Acids-Vitamin E (FISH OIL) 1,000 mg [...] 18 02/22/2017 0929 CREATININE 0.64 (L) 02/22/2017 0929 Component Value Date/Time CALCIUM 10.2 02/22/2017 0929 [...] Wallis APRN Section of Gastroenterology [place] [address] Copy: Salome Mcarthur APRN [address] / [place] [address] 25 of this 30 minute visit in face to face discussion regarding disease, prognosis and treatment documented in this encounter Plan of Treatment Upcoming Encounters Date Type Department Care Team (Late st Contact Info) Description 04/28/2024 11:00 AM EST [place] [phone] Lani Wallis APRN [facility] [place] [address] 04/28/2024 2:00 PM EST Office [place] [address] Lani Wallis APRN [facility] [place] [address] documented as of this encounter Results * Prothrombin Time (08/22/2017 10:25 AM EDT) Prothrombin Time 11.7 9.4 - 12.5 sec [facility] International Normalization Ratio 1.0 [facility] Comment: An INR <2.0 indicates [...] Lab Lani Wallis APRN HEMATOLOGY ORDERAB LES [facility] [place] [address] * (ABNORMAL) Comprehensive metabolic panel (non-fasting) (08/22/2017 10:25 AM EDT) Pathologist [facility] Glucose 163 65 - 199 mg/dL [facility] Comment:Diabetes: >=200 mg/d L plus symptoms Blood Urea Nitrogen 14 8 - 18 mg/dL [facility] Creatinine 0.57(L) 0.70 - 1.20 mg/dL [facility] Sodium 141 135 - 145 mmol/L [facility] Potassium 4.3 3.5 - 5.0 mmol/L [facility] Comment: Please note: ??Patients with WBC >100,000 may have falsely elevated Potassium levels. ??For accurate Potassium quantification in these patients send serum separator tube (gold top) for subsequent determinations. ??Contact the Clinical Chemistry Laboratory if there are any questions. Chloride 99 98 - 107 mmol/L [facility] Carbon Dioxide 28 22 - 31 mmol/L [facility] Anion Gap 14 5 - 15 mmol/L [facility] Calcium 10.3 8.5 - 10.5 mg/dL [facility] Protein, Total 7.4 6.1 - 8.0 gm/dL [facility] Albumin 5.0 3.2 - 5.2 gm/dL [facility] Aspartate Aminotransferase 30 0 - 30 unit/L [facility] Alanine Aminotransferase 32(H) 0 - 30 unit/L [facility] Alkaline Phosphatase 72 40 - 104 unit/L [facility] Bilirubin, Total 0.5 0.2 - 1.3 mg/dL [facility] Est Glomerular Filtration Rate >60 >=60 [facility] Comment: The reported eGFR should be multiplied by 1.2 for patients. The MDRD is not an appropriate measure of renal function for patients with body mass extremes or in patients with acute kidney failure. http://[email or web address] [email or web address]/DHMCnkf Blood specimen (specimen) 08/22/2017 10:25 AM EDT 08/22/2017 10:43 AM EDT Narrative Resulting Agency Comment Spec In Lab Lani Wallis APRN CHEMISTRY ORDERABL ES [facility] [place] [address] * (ABNORMAL) US Abdomen Complete (08/22/2017 9:54 [...] 12:24 pm) PATIENT INFO: ID #: ? [id number] ?: ??[birth year] (77 yrs) Name: ? NICK MENDIETA ?Visit Date: 08/22/2017 09:52 am PERFORMED BY: Performed By: ? Mary HI, ??Lis Attending: ?Jaja GALLO, Sumi Arriaza. Resident: ? Aryan GALLO, Estephanie Nolen Referred By: ?LANI WALLIS Secondary Phy.: ?? LANI WALLIS SPECIMEN BOSS Location: ? [place] SERVICE(S) PROVIDED: ??UABDC - Abdominal Complete Survey - [id number] ?[id number] INDICATIONS: ??Cirrhosis, survey for hepatoma COMPARISON: RUQ [...] Agency Comment Unexpected Finding Lani Wallis APRN [facility] GEN ORDERAB LES documented in this encounter Visit Diagnoses Diagnosis NAFLD (nonalcoholic fatty liver disease) Other chronic nonalcoholic liver disease NAFLD (nonalcoholic fatty liver disease) Other chronic nonalcoholic liver disease documented in this encounter Care Teams Telegraphic Typewriter Repairer Relationship Specialty Start Date End Date Salome Mcarthur APRN [address] [place] [address] PCP - General Family Medicine 05/30/15 12/11/23 documented as of this encounter
--- OUTSIDE RECORDS SUMMARY | 2024-03-23 12:38 | XMS_ITS | Encounter Summary ---
Author Organization [facility] [place] [address] Care Team Providers Care Value Stream Leader Name Role Phone Salome Mcarthur APRN Primary Care Provider +1 [phone] Encounter Details Date Type Department Care Team (Latest Contact Info) Description 08/22/2017 10:30 AM EDT Laboratory Appointment Lab [address] [place] [address] NAFLD (nonalcoholic fatty liver disease) [...] 04/28/2024 11:00 AM EST Appointment [place] [address] Molly Cui [facility] [address] 04/28/2024 2:00 PM EST Office Visit [place] [address] Molly Cui [facility] [address] documented as of this encounter Procedures Procedure [...] 10:25 AM EDT) Neutrophil % 52.1 % [facility] Neutrophil Absolute 2.92 1.70 - 6.10 x10(3)/[facility] LAB[facility] Lymph % 35.9 % [facility] Lymphocytes Abs 2.0 0.9 - 3.2 x10(3)/[facility] LABORATORY Monocyte % 9.1 % [facility] Monocyte Abs 0.5 0.3 - 0.9 x10(3)/[facility] LABORATORY Eos % 1.8 % [facility] Eosinophils Abs 0.1 0.0 - 0.4 x10(3)/[facility] LABORATORY Basophil % 0.7 % [facility] Baso Absolute 0.0 0.0 - 0.1 x10(3)/[facility] LABORATORY Immature Gran % 0.40 % [facility] Comment: Immature granulocytes(IG's)percentage and absolute count will include metamyelocytes, myelocytes, and promyelocytes. Blood smears from CBCs yielding IG's will be scanned manually for concordance. If this scan disagrees with the automated IG or if promyelocytes are noted, a manual differential will be performed. Immature Gran Absolute 0.02 0.00 - 0.04 x10(3)/mcL [facility] Blood specimen (specimen) 08/22/2017 10:25 AM EDT 08/22/2017 10:43 AM EDT Narrative Resulting Agency Comment Spec In Lab Molly Cui FOSTER CARE WORKER HEMATOLOGY ORDERAB LES [facility] [place] [address] * (ABNORMAL) Hemogram (08/22/2017 10:25 AM EDT) White Blood Cell 5.6 4.0 - 9.5 x10(3)/mc L [facility] Red Blood Cell 4.42 4.00 - 5.21 x10(6)/mc L [facility] Hemoglobin 14.0 11.7 - 15.5 gm/dL [facility] Hematocrit 40.5 35.7 - 45.8 % [facility] Mean Cell Volume 91.6 82.6 - 94.4 fL [facility] Mean Cell Hemoglobin 31.7 27.1 - 32.0 pg [facility] Mean Cell Hemoglobin Concentration 34.6 31.7 - 35.0 gm/dL [facility] Platelet 118(L) 145 - 357 x10(3)/mc L [facility] RDW Standard Deviation 42.4 37.0 - 46.0 [facility] RDW coefficient of variation 12.6 11.5 - 14.1 % [facility] Mean Platelet Volume 11.9 7.6 - 12.9 fL [facility] NRBC% auto 0.0 % [facility] NRBC Absolute 0.000 0.000 - 0.000 x10(3)/mc L [facility] Blood specimen (specimen) 08/22/2017 10:25 AM EDT 08/22/2017 10:43 AM EDT Narrative Resulting Agency Comment Spec In Lab Molly Cui APRN HEMATOLOGY ORDERAB LES Performing Organization Address [facility] Co de Phone Number [facility] [place] [address] * Prothrombin Time (08/22/2017 10:25 AM EDT) Pathologist [facility] Prothrombin Time 11.7 9.4 - 12.5 sec [facility] International Normalization Ratio 1.0 [facility] Comment: An INR <2.0 [...] APRN HEMATOLOGY ORDERAB LES Performing Organization Address [facility] Co de Phone Number [facility] [place] [address] * (ABNORMAL) Comprehensive metabolic panel (non-fasting) (08/22/2017 10:25 AM EDT) Pathologist [facility] Glucose 163 65 - 199 mg/dL [facility] Comment:Diabetes: >=200 mg/d L plus symptoms Blood Urea Nitrogen 14 8 - 18 mg/dL [facility] Creatinine 0.57(L) 0.70 - 1.20 mg/dL [facility] Sodium 141 135 - 145 mmol/L [facility] [...] 107 mmol/L [facility] Carbon Dioxide 28 22 - 31 mmol/L [facility] Anion Gap 14 5 - 15 mmol/L [facility] Calcium 10.3 8.5 - 10.5 mg/dL [facility] Protein, Total 7.4 6.1 - 8.0 gm/dL [facility] Albumin 5.0 3.2 - 5.2 gm/dL [facility] Aspartate Aminotransferase 30 0 - 30 unit/L [facility] Alanine Aminotransferase 32(H) 0 - 30 unit/L [facility] Alkaline Phosphatase 72 40 - 104 unit/L [facility] Bilirubin, Total 0.5 0.2 - 1.3 mg/dL [facility] Est Glomerular Filtration Rate >60 >=60 [facility] Comment: The reported eGFR should be multiplied by 1.2 for patients. The MDRD is not an appropriate measure of renal function for patients with body mass extremes or in patients with acute kidney failure. http://Etreasurebox/DHnkdep http://Etreasurebox/DHMCnkf Blood specimen (specimen) 08/22/2017 10:25 AM EDT 08/22/2017 10:43 AM EDT Narrative Resulting Agency Comment Spec In Lab Molly Cui APRN CHEMISTRY ORDERABL ES [facility] [address] documented in this encounter Visit Diagnoses Diagnosis NAFLD (nonalcoholic fatty liver disease) Other chronic nonalcoholic liver disease documented in this encounter Care Teams Value Stream Leader Relationship Specialty Start Date End Date Salome Mcarthur APRN [address] [place] [address] PCP - General Family Medicine 05/30/15 12/11/23 documented as of this encounter
--- OUTSIDE RECORDS SUMMARY | 2024-03-23 12:38 | XMS_ITS | Encounter Summary ---
Author Organization [facility] [place] [address] Care Team Providers Care Plow Mechanic Name Role Phone Salome Mcarthur APRN Primary Care Provider [phone] Encounter Details Date Type Department Care Team (Late st Contact Info) Description 08/06/2018 Ancillary Procedure Radiology Library at [facility] [place] [phone] Ella Castle MD [address] [place] [id number] Pain Social History Tobacco Use Types Packs/Day [...] 04/28/2024 11:00 AM EST Appointment [place] [phone] Molly Cui HUNTING SALES ASSOCIATE [facility] [place] [address] 04/28/2024 2:00 PM EST Office Visit G[place]ology [place] [phone] Molly Cui APRN [facility] [place] [address] documented as of this encounter Procedures Procedure [...] the number below. ? Electronically signed by: Marco A Anthony [facility] ([phone]), at 08/06/2018 4:11 PM Narrative 08/06/2018 4:11 PM EDT EXAMINATION: REQUEST [...] below. Electronically signed by: Marco A Anthony [facility]([phone]), at 08/06/2018 4:11 PM Ella Castle MD IMG OUTSIDE INTER PRETATION ORDERABLES documented in this encounter Visit Diagnoses Diagnosis Pain Generalized pain documented in this encounter Care Teams Plow Mechanic Relationship Specialty Start Date End Date Salome Mcarthur, HUNTING SALES ASSOCIATE [address] [place] [address] PCP - General Family Medicine 05/30/15 12/11/23 documented as of this encounter
--- OUTSIDE RECORDS SUMMARY | 2024-03-23 12:39 | XMS_ITS | Encounter Summary ---
Author Organization [facility] Address [facility] [place] [address] Care Team Providers Care Time Clerk Name Role Phone Lizbet Galindo APRN Primary Care Provider + Encounter Details Date Type Department Care Team (Late st Contact Info) Description 07/22/2012 10:15 AM EDT [place] [phone] Sandra Beltrán MD [facility] [place] [address] Mixed incontinence (Primary Dx) Discharge Disposition: Home [...] of Systems: General Health: Good. 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 [...] Appendectomy 1956 ??? Cystocele repair 08/2011 at [facility] ??? Rectocele repair 08/2011 at [facility] ??? Cholecystectomy, laparoscopic 1997 She has never [...] 04/28/2024 11:00 AM EST [place] [address] Molly Cui APRN [facility] [place] [address] 04/28/2024 2:00 PM EST Office [place] [address] Molly Cui APRN [facility] [place] [address] documented as of this encounter Visit Diagnoses Diagnosis Mixed incontinence- Primary Mixed incontinence urge and stress (male)(female) documented in this encounter Care Teams Time Clerk Relationship Specialty Start Date End Date Lizbet Galindo APRN PCP - General 06/30/12 05/29/15 documented as of this encounter
--- OUTSIDE RECORDS SUMMARY | 2024-03-23 12:39 | XMS_ITS | Encounter Summary ---
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 Social History [...] 04/28/2024 11:00 AM EST Appoint[place] [phone] Molly Cui [facility] [place] [address] 04/28/2024 2:00 PM EST Office [place] [phone] Molly Cui [facility] [place] [address] documented as of this encounter Visit Diagnoses Diagnosis 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
--- OUTSIDE RECORDS SUMMARY | 2024-03-23 12:39 | XMS_ITS | Encounter Summary ---
Author Organization [facility] Address [facility] [place] [address] Care Team Providers Care Content Developer Name Role Phone Salome Mcarthur APRN Primary Care Provider Encounter Details Date Type Department Care Team (Latest Contact Info) Description 02/15/2016 9:51 AM EST - 02/15/2016 11:59 PM [facility] Hospital En[place] [phone] Tremaine Nesbitt MD [facility] [address] [place] [address] NAFLD (nonalcoholic fatty liver disease); Cirrhosis of [...] 100 mg capsule Take by mouth. 02/24/2009 clonazePAM (KLONOPIN) 0.5 mg Tablet nightly. 02/21/2015 12/20/2023 red yeast rice 600 mg Tab Take 600 mg by mouth 2 times daily. 08/08/2023 amitriptyline (ELAVIL) 50 mg tablet Take 25 mg by mouth nightly. 12/06/2023 documented as of this encounter Plan of Treatment Upcoming Encounters Date Type Department Care Team (Late st Contact Info) Description 04/28/2024 11:00 AM EST Appointment [place] [address] Molly Wallis, [facility] [address] 04/28/2024 2:00 PM EST Office Visit [place] [phone] Molly Wallis, [facility] [place] [address] documented as of this encounter Procedures Procedure [...] 01:34 pm) PATIENT INFO: ID #: ? [id number] ? : [birth year] (75 yrs) Name: ? MILKA MENDIETA ? Visit Date:02/15/2016 10:44 am PERFORMED BY: Performed By: ? Colton Coppola RDMS Attending: ?Jaja GALLO, Sumi Arriaza. Referred By: ?TREMAINE NESBITT MD Secondary Phy.: ?? MOLLY WALLIS APRN Location: ? [place] SERVICE(S) PROVIDED: ??UABDCVASC - Abdominal Complete Survey with Vascular - 04634, 73315 ??[id number] INDICATIONS: ??Cirrhosis: survey for Hepatocellular carcinoma, ??evaluate [...] Final 02/15/2016 01:34pm) PATIENT INFO: ID #: [id number] : 42 (75 yrs) Name: MILKA MENDIETA Visit Date:02/15/2016 10:44 am PERFORMED BY: Performed By: Colton Coppola RDMS Attending: Sumi Wilkinson MD Referred By: TREMAINE NESBITT MD Secondary Phy.: MOLLY WALLIS APRN Location: [place] SERVICE(S) PROVIDED: UABDCVASC - Abdominal Complete Survey with Vascular - 80600, 63786 [id number] INDICATIONS: Cirrhosis: survey for Hepatocellular carcinoma, evaluate [...] Report 02/15/2016 01:34 pm [facility]remaine [facility]itt [facility] documented in this encounter Visit Diagnoses Diagnosis NAFLD (nonalcoholic fatty liver disease) Other chronic nonalcoholic liver disease Cirrhosis of liver without ascites, unspecified hepatic cirrhosis type documented in this encounter Care Teams Content Developer Relationship Specialty Start Date End Date Salome Mcarthur, MEAT MOLDER [address] [place] [address] PCP - General Family Medicine 05/30/15 12/11/23 documented as of this encounter
--- OUTSIDE RECORDS SUMMARY | 2024-03-23 12:39 | XMS_ITS | Encounter Summary ---
Author Organization [facility] Address [facility] [place] [address] Care Team Providers Care Gut Cleaner Name Role Phone Salome Mcarthur APRN Primary Care Provider [phone] Reason for Visit * Auth/Cert Specialty Diagnoses / Procedures Referred By Jose t Referred To Contact Diagnoses Fatty (change of) liver, not elsewhere classified Unspecified cirrhosis of liver Cirrhosis, varices screening (IVCS) Procedures PRO UPPER GI ENDOSCOPY, DIAGNOSTIC EGD, UPPER GI ENDOSCOPY Referral ID Status Reason Start Date Expiration Date Visits Re quested Visits Authorized [id number] 1 1 Encounter Details Date Type Department Care Team (Latest Contact Info) Description 07/14/2015 1:02 PM EDT - 07/14/2015 3:58 PM EDT Hospital Encounter [place] [address] Leticia Ashraf MD [facility] [place] [address] Discharge Disposition: Home Social History Tobacco Use [...] better as expected. Saturday-Saturday Same Day Endo [phone] Otherwise contact [phone] and ask to speak to the steel manager delivery and installation subcontractor Follow-up care is a palomo part of [...] Electronically signed by: Andrew Newman Gastroenterology Fellow [facility] Pager [phone] 07/14/2015 documented in this encounter Plan of Treatment Upcoming Encounters Date Type Department Care Team (Late st Contact Info) Description 04/28/2024 11:00 AM EST Appointment [place] [address] Molly Cui [facility] [place] [address] 04/28/2024 2:00 PM EST Office Visit [place] [phone] Molly Cui SHIFT ENGINEER [facility] [place] [address] documented as of this encounter Procedures Procedure [...] Report (07/14/2015 3:04 PM EDT) Final Diagnosis [id number] ? Location: ; 01; A The signing pathologist has (i) examined [...] sing: (T1) ??pps 07/18/2015 5:[address] [facility] GI Biopsy 07/14/2015 3:04 PM EDT 07/14/2015 3:04 PM EDT GI Biopsy 07/14/2015 3:04 PM EDT 07/14/2015 3:04 PM EDT Leticia Ashraf MD PATHOLOGY/CYTOLOGY O RDERABLES Performing Organization Address City/State/[facility] Co de Phone Number [facility] [place] [address] * Specimen to Pathology (surgical or derm) (07/14/2015 3:04 PM EDT) AP Specimen 07/14/2015 3:04 PM EDT 07/14/2015 3:[address] [facility] - 07/14/2015 3:04 PM EDT Specimen requisition ordered. ??Separate Pathology report to follow Leticia Ashraf MD PATHOLOGY/CYTOLOGY O RDERABLES [facility] [place] [address] * Specimen to Pathology (surgical or derm) (07/14/2015 3:04 PM EDT) AP Specimen 07/14/2015 3:04 PM EDT 07/14/2015 3:[address] [facility] - 07/14/2015 3:04 PM EDT Specimen requisition ordered. ??Separate Pathology report to follow Leticia Ashraf MD PATHOLOGY/CYTOLOGY O RDERADOMINGA Performing Organization Address City/[facility]/ZIP Co de Phone Number [facility] [place] [address] * POCT Fingerstick Glucose (07/14/2015 2:32 PM EDT) Glucose, POC 101 60 - 199 mg/dl 07/14/2015 2:32 PM EDT Leticia Ashraf MD POINT OF CARE TEST O RDERABLES * POCT Glucose (07/14/2015 2:29 PM EDT) Glucose, POC 101 65 - 199 mg/dL [facility] Comment: Supplemental ranges: <140 mg/dL before meals <180 mg/dL all other times of the day Blood specimen (specimen) 07/14/2015 2:29 PM EDT 07/14/2015 2:29 PM EDT Leticia Ashraf MD POINT OF CARE TEST O RDERABLES Performing Organization Address City/[facility]/ZIP Co de Phone Number [facility] [place] [address] * UPPER GI ENDOSCOPY (07/14/2015 2:20 PM EDT) UPPER GI ENDOSCOPY [facility] Endoscopy Patient Name: Milka Corbett ? Procedure Date: 07/14/2015 2:20 PM ? Date of : 1940 ? Age: 75 ? Order #: [id number] ? Procedure: ? Upper GI endoscopy Indications: [...] PROVATION 07/14/2015 2:20 PM EDT Salome Mcarthur SHIFT ENGINEER GENERAL SURGICAL OR DERABLES PROVATION documented in this encounter Visit Diagnoses Not on filedocumented in this encounter Administered Medications Inactive Administered Medications - up to 3 most recent administrations Medication Order MAR Action Action Date Dose Rate Site lactated ringers infusion 100 mL/hr, Intravenous, CONTINUOUS, Starting on Melissa 07/14/15 at 1430, Until Melissa 4/7/16 at 1526, Endoscopy (Day of Procedure) New [...] injection (CANCELED) ONCE PRN, Starting on Melissa 416 at 1435, Until Melissa 07/14/15 at 1526, [...] time) documented in this encounter Care Teams Gut Cleaner Relationship Specialty Start Date End Date Salome Mcarthur APRN [address] [place] [address] PCP - General Family Medicine 2/22/16 9/4/24 documented as of this encounter
--- OUTSIDE RECORDS SUMMARY | 2024-03-23 12:39 | XMS_ITS | Encounter Summary ---
Author Organization [facility] Address [facility] [place] [address] Care Team Providers Care Credit Collections Manager Name Role Phone Salome Mcarthur APRN Primary Care Provider Encounter Details Date Type Department Care Team (Latest Contact Info) Description 07/22/2015 8:04 AM EDT - 07/22/2015 11:59 PM EDT Hospital [place] [phone] Tremaine Nesbitt MD [facility] [place] [address] NAFLD (nonalcoholic fatty liver disease); Cirrhosis of [...] 04/28/2024 11:00 AM EST [place] [address] Molly Cui, [facility] [place] [address] 04/28/2024 2:00 PM EST Office [place] [address] Molly Cui, [facility] [place] [address] documented as of this encounter Procedures Procedure [...] 04:17 pm) Patient Info ID #: ? [id number] ? : [birth year] (75 yrs) Name: ? MILKA MENDIETA ? Visit Date:07/22/2015 09:18 am Performed By Performed By: ? Michelle Major RDMS Attending: ?Juliane GALLO, Meghan Ventura Associate: ?Nila GALLO, Mat Alvarado Referred By: ?TREMAINE NESBITT MD Service(s) Provided ??UABDCVASC - Abdominal Complete Survey with Vascular - 23019, 65034 ??[id number] Indications ??Cirrhosis: survey for hepatocellular carcinoma, ??evaluate [...] Final 08/03/2015 04:17pm) Patient Info ID #: [id number] : 42 (75 yrs) Name: MILKA MENDIETA Visit Date:07/22/2015 09:18 am Performed By Performed By: Michelel Major RDMS Attending: Meghan Cardozo MD Associate: Mat Dotson MD Referred By: TREMAINE NESBITT MD Service(s) Provided UABDCVASC - Abdominal Complete Survey with Vascular - 07754, 60622 [id number] Indications Cirrhosis: survey for hepatocellular carcinoma, evaluate [...] type documented in this encounter Care Teams Credit Collections Manager Relationship Specialty Start Date End Date Salome Mcarthur APRN [address] [place] [address] PCP - General Family Medicine 05/30/15 12/11/23 documented as of this encounter
--- OUTSIDE RECORDS SUMMARY | 2024-03-23 12:39 | XMS_ITS | Encounter Summary ---
Author Organization [facility] Address [facility] [place] [address] Care Team Providers Care Client Service Associate Name Role Phone Lizbet Galindo APRN Primary Care Provider + Encounter Details Date Type Department Care Team (Late st Contact Info) Description 10/22/2012 1:45 PM EDT [place] [phone] Sandra Beltrán MD [facility] [place] [address] Mixed incontinence (Primary Dx) Discharge Disposition: Home [...] Progress Notes * Sandra Beltrán MD - 10/22/2012 2:11 PM EDT [...] am and minimal at night. She is port drier at night if she doesn't cath. [...] 04/28/2024 11:00 AM [place] [address] Molly Cui [facility] [place] [address] 04/28/2024 2:00 PM EST Office [place] [address] Molly Cui [facility] [place] [address] documented as of this encounter Visit Diagnoses Diagnosis Mixed incontinence- Primary Mixed incontinence urge and stress (male)(female) documented in this encounter Care Teams Client Service Associate Relationship Specialty Start Date End Date Lizbet Galindo APRN PCP - General 06/30/12 05/29/15 documented as of this encounter
--- OUTSIDE RECORDS SUMMARY | 2024-03-23 12:39 | XMS_ITS | Clinical Summary ---
Author Organization [facility] Address [address] [place] [address] Care Team Providers Care Analyst Sales Name Role Phone Salome Mcarthur SALES AND MARKETING ADMINISTRATOR Primary Care Provider [phone] Allergies Active Allergy Reactions Criticality Noted Date Comments Dale Inhibitors Cough 03/09/2009 Atenolol Cough 03/09/2009 Sulfamethoxazole-Trimeth oprim Rash 03/09/2009 Codeine Itching,Other (See Comments) 03/09/2009 paranoia Hydromorphone (Bulk) Itching 08/31/2011 Facial itiching Dulaglutide Nausea And Vomiting Medium 11/03/2023 Erythromycin Other (See Comments) 03/09/2009 GI Upset Latex, Natural Rubber Itching 08/21/2011 Meperidine Other (See Comments) Medium 02/16/2014 Ranolazine 12/27/2023 Stomach aches Simvastatin Nausea Only Medium 02/16/2014 Medications BUTALBITAL/ASPI RIN/CAFFEINE (FIORINAL ORAL) Take by mouth 2 times daily as needed. Active MULTIVITAMINS (MULTIVITAMIN ORAL) Take 1 Tab by mouth daily before breakfast. Active lisinopril (PRINIVIL, ZESTRIL) 10 mg tablet Take 1 Tab by mouth daily. 90 Tab 4 06/07/19 10 Active Additional Information Patient not taking.Reported on 11/03/2023 clonazepam (KLONOPIN) 0.5 mg tablet Take 1 Tab by mouth at bedtime. 90 Tab 4 06/07/19 10 Active Additional Information Patient not taking.Reported on 03/16/2020 [place]-3 Fatty Acids-Vitamin E (FISH OIL) 1,000 mg Cap Take by mouth daily. Active metformin (GLUCOPHAGE) 1,000 mg tablet Take 1 Tablet by mouth 2 times daily with breakfast and dinner. Active fexofenadine (JESÚS) 60 mg tablet Take 180 mg by mouth daily. Active acetaminophen (TYLENOL) 650 mg tablet Take 1 Tab by mouth every 6 hours as needed for Pain. 08/22/19 12 Active docusate sodium (COLACE) 100 mg capsule Take 1 Cap by mouth 2 times daily. 08/22/19 12 Active mupirocin (BACTROBAN) 2 % ointment Apply topically to affected area 2 times daily. 22 g 3 03/16/20 Active Additional Information Patient not taking.Reported on 08/04/2023 fluconazole (DIFLUCAN) 150 mg tablet Take 1 Tab by mouth every 72 hours. Until symptom free. Take as soon as symptoms begin 3 Tab 03/16/20 Active Additional Information Patient not taking.Reported on 08/04/2023 albuterol 90 mcg/actuation inhaler Inhale 2 puff using inhaler every four to six hours as needed Active atorvastatin (LIPITOR) 20 mg tablet TAKE 1 TABLET BY MOUTH AT NIGHT Active ONETOUCH ULTRA TEST test strips USE 1 STRIP VIA METER THREE TIMES A DAY DIRECTED 09/12/19 23 Active ONETOUCH ULTRA2 METER 02/08/20 23 Active d-mannose 500 mg capsule daily. Active VICTOZA 2-CHIDI 0.6 mg/0.1 mL (18 mg/3 mL) injectable pen Inject 1.8mg subcutaneously every day 07/15/19 24 Active metoprolol SUCCinate (TOPROL-XL) 25 mg tablet Take 1.5 Tablets by mouth daily. Active omeprazole (PRILOSEC) 40 mg capsule Take 1 capsule by mouth once a day 04/29/19 24 Active pramipexole (MIRAPEX) 0.125 mg tablet TAKE 3 TABLETS BY MOUTH AT NIGHT Active BIOTENE DRY MOUTH ORAL RINSE mouthwash USE BY MOUTH DIRECTED THREE TIMES DAILY OR NEEDED FOR DRY MOUTH 07/12/19 24 Active amitriptyline (ELAVIL) 50 mg tablet TAKE [...] 1 Tablet by mouth 2 times daily. 08/09/19 Active clobetasoL (TEMOVATE) 0.05 % cream 10/18/19 Active isosorbide MONOnitrate (IMDUR) 30 mg CR tablet Take 1 tablet every day by oral route in the morning. Active nitroglycerin (NITROSTAT) 0.4 mg SL tablet DIRECTED DISSOLVE UNDER THE TONGUE NEEDED Active traZODone (DESYREL) 50 mg tablet TAKE 1-2 TABLETs BY MOUTH EVERY DAY Active metoprolol SUCCinate (TOPROL-XL) 50 mg tablet Take 1 Tablet by mouth daily. Active clotrimazole (LOTRIMIN) 1 % creamIndication s:Intertrigo Apply 1 application topically to affected area 2 times daily. 60 g 1 11/03/19 Active Additional Information Patient not taking.Reported on 02/02/2024 torsemide (DEMADEX) 10 mg tablet Take 1 Tablet by mouth daily. 12/03/19 Active benzonatate (TESSALON) 100 mg capsule Take 1 Capsule by mouth 3 times daily as needed for Cough. 30 Capsule 02/02/20 Active Active Problems Problem Noted Date Diagnosed Date Candidiasis of vulva and vagina 02/25/2013 Candidiasis of mouth 02/25/2013 Rectocele 07/03/2011 Cystocele 07/03/2011 Rectocele 05/18/2011 Mixed incontinence 05/18/2011 Hypertensive disorder 03/09/2009 Diabetes mellitus ([facility]) 03/09/2009 [place]: positive 03/09/2009 Overview (03/09/2009): H/o - cxr IBS (irritable bowel syndrome) 03/09/2009 Hyperlipidemia 03/09/2009 Rosacea 03/09/2009 Restless legs syndrome 03/09/2009 Migraine 03/09/2009 Encounters Date Type Department Care Team Description 02/02/2024 12:30 EDT Walk-In [facility] [address] [facility] [address] Tristan Santa, JEIMY Acute cough (Primary Dx) from Last 3 Months Immunizations Name Administration [...] due to NSAIDS Diabetes mellitus (HCC-CMS) Cancer (HCC-CMS) Hearing loss Rectocele 05/18/2011 Mixed incontinence urge [...] 11/08/2019 Verbally Threaten Not on file 11/08/2019 Comments No Sex and Gender Information Value Date Recorded Sex Assigned at Not on file Legal Sex Female 18:18 EST Gender Identity Female 02/14/2022 14:15 EST Sexual Orientation Not on file Occupation Industry Job Start Date Job End Date Not on file Not on file Not on file Not on file Obstetrics History Last Filed Vital Signs Vital Sign Reading Time Taken Comments Blood Pressure 138/65 02/02/2024 1215 EDT Pulse 88 02/02/2024 1215 EDT Temperature 37.2 ??C (99 ??F) 02/02/2024 1215 EDT Respiratory Rate 18 02/02/2024 1215 EDT Oxygen Saturation 97% 02/02/2024 1215 EDT Inhaled Oxygen Concentration - - Weight [...] o r 60+ Years) (1 - 1-dose 75+ series) 2016 Fall Risk Screening 03/16/2021 03/16/2020 COVID-19 Vaccine Completed 01/09/2024, , 09/19/2022, Additional history exists Insurance [facility] MED[facility] Advance Directives For more information, please contact: [phone] * Full Code (Latest Code Status on File) Date Activated Date Inactivated Comments 08/21/2011 16:46 08/22/2011 17:10 Care Teams Analyst Sales Relationship Specialty Start Date End Date Salome Mcarthur, JEIMY [address] [place] [address] PCP - General 03/14/20
--- OUTSIDE RECORDS SUMMARY | 2024-03-23 12:39 | XMS_ITS | Encounter Summary ---
Author [facility] [place] [address] Care Team Providers Care Lisw Name Role Phone Salome Mcarthur APRN Primary Care Provider [phone] Encounter Details Date Type Department Care Team (Late st Contact Info) Description 03/05/2016 Telephone [place] [phone] Whitney De Souza Social History Tobacco Use [...] yes Patient's preferred method of communication: phone; [phone] documented in this encounter Plan of Treatment Upcoming Encounters Date Type Department Care Team (Late st Contact Info) Description 04/28/2024 11:00 AM EST Appointment [place] [address] Molly Cui, [facility] [place] [address] 04/28/2024 2:00 PM EST Office Visit [place] [address] Molly Cui, [facility] [place] [address] documented as of this encounter Visit Diagnoses Not on filedocumented in this encounter Care Teams Lisw Relationship Specialty Start Date End Date Salome Mcarthur APRN [address] [place] [address] PCP - General Family Medicine 05/30/15 12/11/23 documented as of this encounter
--- OUTSIDE RECORDS SUMMARY | 2024-03-23 12:39 | XMS_ITS | Encounter Summary ---
Author Organization [facility] [place] [address] Care Team Providers Care Kitchen Steward Name Role Phone Salome Mcarthur APRN Primary Care Provider [phone] Encounter Details Date Type Department Care Team (Latest Contact Info) Description 02/15/2016 2:00 PM EST Laboratory Appointment Lab [address] [place] [address] NAFLD (nonalcoholic fatty liver disease); Cirrhosis of [...] 04/28/2024 11:00 AM EST [place] [address] Molly Cui [facility] [place] [address] 04/28/2024 2:00 PM EST Office [place] [address] Molly Cui [facility] [place] [address] documented as of this encounter [...] 1:48 PM EST) Neutrophil % 58.4 % [facility] Neutrophil Absolute 3.07 1.70 - 6.10 x10(3)/[facility] Lymph % 30.9 % [facility] Lymphocytes Abs 1.6 0.9 - 3.2 x10(3)/[facility] Monocyte % 8.8 % [facility] Monocyte Abs 0.5 0.3 - 0.9 x10(3)/[facility] Eos % 1.3 % [facility] Eosinophils Abs 0.1 0.0 - 0.4 x10(3)/[facility] Basophil % 0.4 % [facility] Baso Absolute 0.0 0.0 - 0.1 x10(3)/[facility] Immature Gran % 0.20 % [facility] Comment: Immature granulocytes(IG's)percentage and absolute count will include metamyelocytes, myelocytes, and promyelocytes. Blood smears from CBCs yielding IG's will be scanned manually for concordance. If this scan disagrees with the automated IG or if promyelocytes are noted, a manual differential will be performed. Immature Gran Absolute 0.01 0.00 - 0.04 x10(3)/mcL [facility] Blood specimen (specimen) 02/15/2016 1:48 PM EST 02/15/2016 1:52 PM EST Narrative Resulting Agency Comment Spec In Lab Irwin Rock MD HEMATOLOGY ORDERABL ES [facility] [place] [address] * (ABNORMAL) Hemogram (02/15/2016 1:48 PM EST) White Blood Cell 5.2 4.0 - 9.5 x10(3)/mc L [facility] Red Blood Cell 4.56 4.00 - 5.21 x10(6)/mc L [facility] Hemoglobin 13.8 11.7 - 15.5 gm/dL [facility] Hematocrit 41.2 35.7 - 45.8 % [facility] Mean Cell Volume 90.4 82.6 - 94.[address] [facility] Mean Cell Hemoglobin 30.3 27.1 - 32.[address] [facility] Mean Cell Hemoglobin Concentration 33.5 31.7 - 35.0 gm/dL [facility] Platelet 143(L) 145 - 357 x10(3)/mc L [facility] RDW Standard Deviation 41.3 37.0 - 46.[address] [facility] RDW coefficient of variation 12.5 11.5 - 14.1 % [facility] Mean Platelet Volume 11.1 7.6 - 12.[address] [facility] NRBC% auto 0.0 % [facility] NRBC Absolute 0.000 0.000 - 0.000 x10(3)/mc L [facility] Blood specimen (specimen) 02/15/2016 1:48 PM EST 02/15/2016 1:52 PM EST Narrative Resulting Agency Comment Spec In Lab Irwin Rock MD HEMATOLOGY ORDERABL ES Performing Organization Address [facility] de Phone Number [facility] [place] [address] * Prothrombin Time (02/15/2016 1:48 PM EST) Prothrombin Time 13.4 12.0 - 15.[address] [facility] Comment: An INR [...] International Normalization Ratio 1.0 0.9 - 1.1 [facility] Blood specimen (specimen) 02/15/2016 1:48 PM EST 02/15/2016 1:52 PM EST Narrative Resulting Agency Comment Spec In Lab Irwin Rock MD HEMATOLOGY ORDERABL ES Performing Organization Address [facility] de Phone Number [facility] [place] [address] * (ABNORMAL) Comprehensive metabolic panel (non-fasting) (02/15/2016 1:48 PM EST) Glucose 205(H) 65 - 199 mg/dL [facility] Comment:Diabetes: >=200 mg/d L plus symptoms Blood Urea Nitrogen 15 8 - 18 mg/dL [facility] Creatinine 0.90 0.70 - 1.20 mg/dL [facility] Comment: Please note that the pediatric reference intervals supplied above were not validated at [facility]. Results from pediatric patients should be interpreted in conjunction to the patient's age, height and muscle mass. Sodium 141 135 - 145 mmol/L [facility] Potassium 4.0 3.5 - 5.0 mmol/L [facility] Comment: Please note: ??Patients with WBC >100,000 may have falsely elevated Potassium levels. ??For accurate Potassium quantification in these patients send serum separator tube (gold top) for subsequent determinations. ??Contact the Clinical Chemistry Laboratory if there are any questions. Chloride 98 98 - 107 mmol/L [facility] Carbon Dioxide 29 22 - 31 mmol/L [facility] Anion Gap 14 5 - 15 mmol/L [facility] Calcium 10.5 8.5 - 10.5 mg/dL [facility] Protein, Total 7.1 6.1 - 8.0 gm/dL [facility] Albumin 4.7 3.2 - 5.2 gm/dL [facility] Aspartate Aminotransferase 37(H) 0 - 30 unit/L [facility] Alanine Aminotransferase 31(H) 0 - 30 unit/L [facility] Alkaline Phosphatase 44 40 - 104 unit/L [facility] Bilirubin, Total 0.5 0.2 - 1.3 mg/dL [facility] Bilirubin, Direct 0.2 0.0 - 0.3 mg/dL [facility] Est Glomerular Filtration Rate >60 >=60 [facility] Comment: This estimated GFR (eGFR) [...] the following links into your internet browser. [email or web address] Blood specimen (specimen) 02/15/2016 1:48 PM EST 02/15/2016 1:52 PM EST Narrative Resulting Agency Comment Spec In Lab Irwin Rock MD CHEMISTRY ORDERABLE S [facility] [place] [address] documented in this encounter Visit Diagnoses Diagnosis NAFLD (nonalcoholic fatty liver disease) Other chronic nonalcoholic liver disease Cirrhosis of liver without ascites, unspecified hepatic cirrhosis type documented in this encounter Care Teams Kitchen Steward Relationship Specialty Start Date End Date Salome Mcarthur, VIDEO OPERATOR [address] [place] [address] PCP - General Family Medicine 05/30/15 12/11/23 documented as of this encounter
--- OUTSIDE RECORDS SUMMARY | 2024-03-23 12:39 | XMS_ITS | Encounter Summary ---
Author Organization [facility] Address [facility] [place] [address] Care Team Providers Care Technical Delivery Manager Name Role Phone Lizbet Zhang APRN Primary Care Provider + Encounter Details Date Type Department Care Team (Late st Contact Info) Description 07/22/2012 11:00 AM EDT Office Visit Urology at [facility] [place] [phone] Urge incontinence (Primary Dx); Mixed incontinence Social [...] 04/28/2024 11:00 AM EST Appointment [place] [address] Molly Cui APRN [facility] [place] [address] 04/28/2024 2:00 PM EST Office Visit [place] [address] Molly Cui APRN [facility] [place] [address] documented as of this encounter Visit Diagnoses Diagnosis Urge incontinence- Primary Mixed incontinence Mixed incontinence urge and stress (male)(female) documented in this encounter Care Teams Technical Delivery Manager Relationship Specialty Start Date End Date Lizbet Zhang APRN PCP - General 06/30/12 05/29/15 documented as of this encounter
--- OUTSIDE RECORDS SUMMARY | 2024-03-23 12:39 | XMS_ITS | Encounter Summary ---
[place] [address] Care Team Providers Care Classified Ad Taker Name Role Phone Salome Mcarthur APRN Primary Care Provider [phone] Reason for Visit * Reason Onset Date Comments Advice Only 09/14/2016 Encounter Details Date Type Department Care Team (Late st Contact Info) Description 09/14/2016 Telephone [place] [phone] Malika Cantrell director reactor projects Only Social History Tobacco Use Types Packs/Day [...] 04/28/2024 11:00 AM EST [place] [address] Molly Cui, [facility] [place] [address] 04/28/2024 2:00 PM EST Office [place] [phone] Molly Cui, [facility] [address] documented as of this encounter Visit Diagnoses Not on filedocumented in this encounter Care Teams Classified Ad Taker Relationship Specialty Start Date End Date Salome Mcarthur LIGHTING TECHNICIAN [address] [place] [address] PCP - General Family Medicine 05/30/15 12/11/23 documented as of this encounter
--- OUTSIDE RECORDS SUMMARY | 2024-03-23 12:39 | XMS_ITS | Encounter Summary ---
Author Organization [facility] Address [facility] [place] [address] Care Team Providers Care Poker Manager Name Role Phone Lizbet Zhang APRN Primary Care Provider + Encounter Details Date Type Department Care Team (Late st Contact Info) Description 07/12/2012 Telephone Obstetrics [place] [address] Tian Norwood MD [facility] DR OBSTETRICS & [place] [address] Social History Tobacco Use Types Packs/Day Years [...] was negative for malignancy. Plan/Instructions: No further evp head of smg americas experience strategy evaluation needed for this. TINA NORWOOD MD, PGY3 documented in this encounter Plan of Treatment Upcoming Encounters Date Type Department Care Team (Late st Contact Info) Description 04/28/2024 11:00 AM EST [place]oint[place] [address] Molly Cui, [facility] [place] [address] 04/28/2024 2:00 PM EST Office [place] [phone] Molly Cui, [facility] [place] [address] documented as of this encounter Visit Diagnoses Not on filedocumented in this encounter Care Teams Poker Manager Relationship Specialty Start Date End Date Lizbet Zhang APRN PCP - General 06/30/12 05/29/15 documented as of this encounter
--- OUTSIDE RECORDS SUMMARY | 2024-03-23 12:39 | XMS_ITS | Encounter Summary ---
Author Organization [facility] Address [address] [place] [address] Care Team Providers Care Housing Property Manager Name Role Phone Salome Mcarthur RISK CONTROL SPECIALIST Primary Care Provider [phone] Reason for Visit * Reason Comments Cough Chest Congestion Chest Pain Shortness of Breath Encounter Details Date Type Department Care Team (Late st Contact Info) Description 02/02/2024 12:30 EDT Walk-In [facility] [address] [place] [id number] Tristan Santa, RISK CONTROL SPECIALIST [address] [facility] [address] [place] [address] Acute cough (Primary Dx) Social History Tobacco Use Types [...] file Not on file Not on file documented as of this [...] Index - - documented in this encounter Mental Status * Because of a physical, mental, or emotional condition, do you have serious difficulty concentrating, remembering, or making decisions? (5 years old or older) Answer Entry Date Author Yes 08/21/2011 16:30 EDT Sophia Lopez RN documented in this encounter Patient Instructions * Patient Instructions* Tristan Santa NP - 02/02/2024 12:30 EDT Your lungs were clear on auscultation at today's visit. I have ordered you some Tessalon Perles for your cough. You can take one up to 3 times daily (every8 hrs as needed) Good Hydration, elevate head of bed at night, encourage humidifier use at night. Follow-up with your Primary Care Provider this week if no improvement. Discontinue current cough syrup use when using Tessalon Perles. * Attachments The following attachments cannot be sent through Care Everywhere. * Cough (Macedonian) documented in this encounter Ordered Prescriptions Prescription Sig Dispense Quantity Refills Last Filled Start Date End Date benzonatate (TESSALON) 100 mg capsule Take 1 Capsule by mouth 3 times daily as needed for Cough. 30 Capsule 02/02/2024 documented in this encounter Progress Notes * Zoe Hernández MA - 02/02/2024 1230 EDT CC/HPI: Pt c/o cough, chest congestion, chest pain, SOB with exertion, Sx started 7 days ago, concern for PNA Covid Screening: In the last 72 hours, has the patient had: New or unusual cough, shortness of breath, new nasal congestion, sore throat, fever, chills, body aches, or new loss of taste or smell without a reasonable alternative diagnosis? YES In the past 10 days, has the patient had a positive Covid test OR a confirmed close Covid exposure?NO * Tristan Santa NP - 02/02/2024 1230 EDT [facility] Chief Complaint(s): Cough, Chest Congestion, Chest Pain, and Shortness of Breath Assessment & Plan: 1. Acute cough New Prescriptions BENZONATATE (TESSALON) 100 MG CAPSULE Take 1 Capsule by mouth 3 times daily as needed for Cough. This is a 83 y.o. yr old female patient is generally well appearing, afebrile, non toxic, well hydrated, stable on exam with who presents with Shortness of breath on exertion Recently seen [facility] Reports shortness of breath is related to cough Discomfort is a burning of the chest with cough Does have 1+ bilateral ankle edema she reports is her baseline. Declined need for EKG at this time Educated to go to ER with chest pain/shortness of breath or other changes Cough Persistent from URI this past week [facility] Emile Pittman Other considered diagnosis include: Respiratory:URI/Sinus Infection, PNA, PE Acute coronary syndrome, aortic dissection/vascular disease, PE HPI: HPI Milka Corbett is a 83 y.o. yr old female here with complaints of cough, chest congestion, chestburning pain with cough, SOB with exertion going up hill or upstairs not acute but worse since chest congestion. Sx started 7 days ago, concern for PNA. Denies fevers and overall feels symptoms are improving except for the cough. ROS: ROS See HPI Social History Tobacco Use Smoking Status Never Smokeless Tobacco Never I have reviewed current problem list and current medications. Objective: Examination: Vital signs and nursing notes reviewed. Vitals: BP 138/65 Pulse 88 Temp 37.2 ??C (99 ??F) (Oral) Resp 18 SpO2 97% There is no height or weight on file to calculate BMI. Physical Exam Constitutional: General: She is not in acute distress. Comments: Talking on the phone with her daughter when this provider entered the room and this provider waited for her to finish her conversation. Speaking in full sentences. Stable. Dry cough noted. HENT: Nose: Nose normal. Mouth/Throat: Mouth: Mucous membranes are moist. Eyes: Conjunctiva/sclera: Conjunctivae normal. Cardiovascular: Rate and Rhythm: Tachycardia present. Heart sounds: Normal heart sounds. Pulmonary: Effort: Pulmonary effort is normal. Breath sounds: Normal breath sounds. Musculoskeletal: Cervical back: Normal range of motion. Skin: [...] as of this encounter Visit Diagnoses Diagnosis Acute cough- Primary documented in this encounter Historical Medications * This list may reflect changes made after this encounter. torsemide (DEMADEX) 10 mg tablet Take 1 Tablet by mouth daily. 12/03/2023 added in this encounter Care Teams Housing Property Manager Relationship Specialty Start Date End Date Salome Mcarthur NP [address] [place] [address] PCP - General 03/14/20 documented as of this encounter
--- OUTSIDE RECORDS SUMMARY | 2024-03-23 12:39 | XMS_ITS | Encounter Summary ---
Author Organization [place] [address] Care Team Providers Care Lpn Rn Name Role Phone Salome Mcarthur APRN Primary Care Provider [phone] [phone] Reason for Visit * Reason Onset Date Comments Cirrhosis 07/27/2015 Encounter Details Date Type Department Care Team (Late st Contact Info) Description 07/27/2015 Telephone [place] [phone] Jacque Gale RN Cirrhosis Social History Tobacco [...] 04/28/2024 11:00 AM EST [place] [address] Molly Cui, [facility] [place] [address] 04/28/2024 2:00 PM EST Office [place] [address] Molly Cui, [facility] [place] [address] documented as of this encounter Visit Diagnoses Not on filedocumented in this encounter Care Teams Lpn Rn Relationship Specialty Start Date End Date Salome Mcarthur APRN [address] [place] [address] PCP - General Family Medicine 05/30/15 12/11/23 documented as of this encounter
--- OUTSIDE RECORDS SUMMARY | 2024-03-23 12:39 | XMS_ITS | Encounter Summary ---
Author Organization [facility] Address [facility] [place] [address] Care Team Providers Care Sap Enterprise Portal Consultant Name Role Phone Salome Mcarthur APRN Primary Care Provider [phone] Reason for Visit * Auth/Cert Specialty Diagnoses / Procedures Referred By Jose t Referred To Contact Diagnoses Fatty (change of) liver, not elsewhere classified Unspecified cirrhosis of liver Cirrhosis, varices screening (IVCS) Procedures PRO UPPER GI ENDOSCOPY, DIAGNOSTIC EGD, UPPER GI ENDOSCOPY Referral ID Status Reason Start Date Expiration Date Visits Re quested Visits Authorized [id number] 1 1 Encounter Details Date Type Department Care Team (Late st Contact Info) Description 07/14/2015 2:15 PM EDT - 07/14/2015 2:45 PM EDT [place] [address] Leticia Ashraf MD [facility] DR GASTROENTER[place] [address] EGD, UPPER GI ENDOSCOPY (WRVU 2.09) Social [...] encounter Discharge Instructions * Discharge Instructions* Jaida Jain, RN - 07/14/2015 3:10 PM EDT UPPER [...] better as expected. Saturday-Saturday Same Day Endo [phone] Otherwise contact [phone] and ask to speak to the storage facility housekeeper emanations analysis technician Follow-up care is a palomo part of [...] Electronically signed by: Andrew Newman Gastroenterology Fellow [facility] Pager [phone] 07/14/2015 documented in this encounter Plan of Treatment Upcoming Encounters Date Type Department Care Team (Late st Contact Info) Description 04/28/2024 11:00 AM [place] [address] Molly Cui [employer]NC MILL SET UP OPERATOR [facility] [place] [address] 04/28/2024 2:00 PM EST Office [place] [phone] Molly Cui APRN [facility] [place] [address] [phone] (work) documented as of this encounter Procedures Procedure [...] Report (07/14/2015 3:04 PM EDT) Final Diagnosis [id number] ? Location: ; [facility]; A The signing pathologist has (i) examined [...] sing: (T1) ??pps 07/18/2015 5:04 PM EDT [facility] GI Biopsy 07/14/2015 3:04 PM EDT 07/14/2015 3:04 PM EDT GI Biopsy 07/14/2015 3:04 PM EDT 07/14/2015 3:04 PM EDT Leticia Ashraf MD PATHOLOGY/CYTOLOGY O RDERABLES [facility] [place] [address] * Specimen to Pathology (surgical or derm) (07/14/2015 3:04 PM EDT) AP Specimen 07/14/2015 3:04 PM EDT 07/14/2015 3:04 PM EDT Narrative [facility] - 07/14/2015 3:04 PM EDT Specimen requisition ordered. ??Separate Pathology report to follow Leticia Ashraf MD PATHOLOGY/CYTOLOGY O CORAL [facility] [place] [address] * Specimen to Pathology (surgical or derm) (07/14/2015 3:04 PM EDT) AP Specimen 07/14/2015 3:04 PM EDT 07/14/2015 3:04 PM EDT Narrative [facility] - 07/14/2015 3:04 PM EDT Specimen requisition ordered. ??Separate Pathology report to follow Leticia Ashraf MD PATHOLOGY/CYTOLOGY O CORAL Performing Organization Address City/[facility] Co de Phone Number [facility] [place] [address] * POCT Fingerstick Glucose (07/14/2015 2:32 PM EDT) Glucose, POC 101 60 - 199 mg/dl 07/14/2015 2:32 PM EDT Leticia Ashraf MD POINT OF CARE TEST O RDERADOMINGA * POCT Glucose (07/14/2015 2:29 PM EDT) Glucose, POC 101 65 - 199 mg/dL [facility] Comment: Supplemental ranges: <140 mg/dL before meals <180 mg/dL all other times of the day Blood specimen (specimen) 07/14/2015 2:29 PM EDT 07/14/2015 2:29 PM EDT Leticia Ashraf MD POINT OF CARE TEST O CORAL Performing Organization Address City/[facility]/ZIP Co de Phone Number [facility] [place] [address] * UPPER GI ENDOSCOPY (07/14/2015 2:20 PM EDT) UPPER GI ENDOSCOPY [facility] Endoscopy Patient Name: Milka Corbett ? Procedure Date: 07/14/2015 2:20 PM ? Date of : 1940 ? Age: 75 ? Order #: [id number] ? Procedure: ? Upper GI endoscopy Indications: [...] with Molly Cui ? Leticia Ashraf Leticia Grimaldo Pascale, 07/14/2015 3:02 PM This report has been signed electronically. Number of Addenda: 0 Note Initiated On: 07/14/2015 2:20 PM PROVATION 07/14/2015 2:20 PM EDT Salome Mcarthur APRN GENERAL SURGICAL [...] multi-dose injection ONCE PRN, Starting on Melissa 16 at 1435, Until Melissa 07/14/15 at 1526, [...] spray (CANCELED) ONCE PRN, Starting on Melissa 416 at 1435, Until Melissa 16 at 1526, Intra-Operative (Intra-Procedure) 1435 (Given - [...] time) documented in this encounter Care Teams Sap Enterprise Portal Consultant Relationship Specialty Start Date End Date Salome Mcarthur APRN [address] [place] [id number] PCP - General Family Medicine 05/30/15 12/11/23 documented as of this encounter
--- OUTSIDE RECORDS SUMMARY | 2024-03-23 12:39 | XMS_ITS | Encounter Summary ---
Author Organization [facility] Address [facility] [place] [address] Care Team Providers Care Forestry Faculty Member Name Role Phone Lizbet Zhang APRN Primary Care Provider + Reason for Visit * Reason Comments Establish Care Vaginal Discharge disc surgery - polyp s Encounter Details Date Type Department Care Team (Late st Contact Info) Description 07/08/2012 3:30 PM EDT Office Visit Obstetrics [place] [phone] Loulou Hamilton MD [facility] DR OBSTETRICS [place] [address] Vaginal lesion (Primary Dx); Hx of bladder [...] EDT REPRODUCTIVE MEDICINE NEW PATIENT CONSULT NOTE [place], [place] Tim Roque MD Professor and Chair Department of SOLAR INSTALLATION SUPERVISOR Loulou Watson MD IVF/ART Desktop Publishing Associate MD Josee Haas MD Elizabeth Todd, ARNP Chief Complaint: 1.) vaginal polyp SUBJECTIVE: Ms. Mendieta is a 72 y.o. post-menopausal woman who I am asked to consult on at the request of Dr. Boykin, a urologist at [facility] for a discussion with regardsto recently [...] and rectocele repair by a urologist at [facility]. This was done for urinary incontinence which has actually gotten worse over the last 2 years (especially at night) and she is awaiting an appointment with urology here at [facility] for evaluation. Abdominal hysterectomy done in 1986 - for endometriosis. RO[address] [facility] History: LMP 1986. Menarche age 15 q [...] Appendectomy 1956 ??? Cystocele repair 08/2011 at [facility] ??? Rectocele repair 08/2011 at [facility] ??? 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 Family History Problem Relation Age of Onset [...] will call patient with results. Otherwise, benign medical records coder exam. If polyp negative for malignancy, no further RO[address] [facility] evaluation or treatment recommended. Dr. Watson was [...] 04/28/2024 11:00 AM [place] [phone] Molly Cui, [facility] [place] [address] 04/28/2024 2:00 PM EST Office [place] [phone] Molly Cui [facility] [place] [address] documented as of this encounter Procedures Procedure Name Priority Date/Time Associated Diagnosis Comments RO[address] [facility] CYTOLOGY FINAL REPORT Routine 07/08/2012 8:27 PM EDT SURGICAL PATHOLOGY REPORT Routine 07/08/2012 5:37 PM EDT documented in this encounter Results * Print Line Supervisor Cytology Final Report (07/08/2012 8:27 PM EDT) Print Line Supervisor Cytology Final Report ? [facility] ? Provider: ?? MOE WATSON, ??Pt. Name: ?? NICK MENDIETA ?LOULOU ? Acc #: ?[id number] ?Pt. ? Col Date: ?? 07/08/2012 ?/Sex: ?1940,(72 years),Female ? Rec Date: ?? 07/08/2012 ?LOC: ?5L ? CYTOPATHOLOGY: ??ROAD [facility] ? ---Adequacy--- ? Specimen submitted is satisfactory. Vaginal Only. ? ---Cytopathologic Diagnosis--- ? NORMAL ? Negative for Intraepithelial Lesion or Malignancy (NILM). ? 07/09/12 ?? Screened by: ??LMY ??SLA ? 07/10/12 ?? Verified by: ??ABDON Munoz(ASCP), Stefany Rivera - ? Clinical Lab Technologist ? ---Clinical Information--- ? HPV Option: ? No HPV Testing ? Preparation: ?Liquid Based Pap ? Specimen Source: ?Vaginal only/LBP/Diagnostic ? LMP: ?Post menopausal, hx bladder cancer, new posterior ? wall bladder lesion ? Hormones?: ?No ? Hysterectomy?: ?Total Hysterectomy ?: ?No ?: ?No ? I.U.D.?: ?No ? Pelvic Radiation: ? No ? Prior RO[address] [facility] Therapy?: ? No ? Hist Abnl Pap/Biopsy?: [...] ??For further ? information please contact the [facility]. ? Reference: ??Abkarie CS. ??Aircraft Detail Draftsperson of Pap Smear Results. ??In: ? Rosy BS, Compa HH, ed. ??The Pap Smear. ??[place]: ??Pino, 2002: ? 71-77. JORY MAYFIELD 07/08/2012 8:27 PM EDT Loulou Watson MD PATHOLOGY/C YTOLOGY ORDERABLES [facility] * Surgical Pathology Report (07/08/2012 5:37 PM EDT) Surgical Pathology Report ? [facility] ? Provider: ?? MOE WATSON, ??Pt. Name: ?? NICK MENDIETA ?LOULOU ? Acc #: [id number] ?Pt. ? Col Date: ?? 07/08/2012 ?/Sex: [...] bladder documented in this encounter Care Teams Forestry Faculty Member Relationship Specialty Start Date End Date Lizbet Zhang, LORETO PCP - General 06/30/12 05/29/15 documented as of this encounter
--- OUTSIDE RECORDS SUMMARY | 2024-03-23 12:39 | XMS_ITS | Encounter Summary ---
Author Organization [facility] [place] [address] Care Team Providers Care Lab Instructor Name Role Phone Salome Mcarthur APRN Primary Care Provider [phone] [phone] Encounter Details Date Type Department Care Team (Late st Contact Info) Description 05/31/2016 External Results [place] [phone] Molly Cui [facility] [place] [address] Social History Tobacco Use Types Packs/Day Years [...] 04/28/2024 11:00 AM EST [place] [phone] Molly Cui SUBSTITUTE NURSE [facility] [place] [address] 04/28/2024 2:00 PM EST Office [place] [phone] Molly Cui [facility] [place] [address] documented as of this encounter Procedures Procedure [...] mg/dL LDL Cholesterol 111 mg/dL Historical Provider MD EXTERNAL LAB AMINA RICH documented in this encounter Visit Diagnoses Not on filedocumented in this encounter Care Teams Lab Instructor Relationship Specialty Start Date End Date Salome Mcarthur, SUBSTITUTE NURSE [address] [place] [address] PCP - General Family Medicine 05/30/15 12/11/23 documented as of this encounter
--- OUTSIDE RECORDS SUMMARY | 2024-03-23 12:39 | XMS_ITS | Encounter Summary ---
Author Organization [facility] [place] [address] Care Team Providers Care Welfare Case Worker Name Role Phone Salome Mcarthur APRN Primary Care Provider [phone] Reason for Visit * Reason Comments Follow-up Encounter Details Date Type Department Care Team (Late st Contact Info) Description 02/15/2016 1:00 PM EST Office [place] [address] Lani Wallis APRN [facility] [place] [address] NAFLD (nonalcoholic fatty liver disease) Social History [...] Progress Notes * Lani Wallis APRN - 02/15/2016 1:00 PM EST HEPATOLOGY Follow up Visit Nick Mendieta 1940 COMMERCIAL HORTICULTURE INSTRUCTOR: LANI WALLIS APRN PCP: Salome Mcarthur APRN [...] for the 02/15/16 encounter (Office Visit) with Lani Wallis APRN Medication Sig Dispense Refill ??? diphenhydrAMINE (BENADRYL) 25 mg Capsule Take 25 mg by mouth every 6 hours as needed for Itching. Current Facility-Administered Medications for the 02/15/16 encounter (Office Visit) with Lani Wallis APRN [...] Signed Final Report 02/15/2016 01:34 pm ASSESSMENT/PLAN Nick Mendieta is a 75 y.o. [...] Wallis APRN Section of Gastroenterology [place] [address] Copy: Salome Mcarthur APRN [address] / [place] [id number] 25 of this 30 minute visit in face to face discussion regarding disease, prognosis and treatment documented in this encounter Plan of Treatment Upcoming Encounters Date Type Department Care Team (Late st Contact Info) Description 04/28/2024 11:00 AM [place] [address] Lani Wallis, [facility] [place] [address] 04/28/2024 2:00 PM EST Office [place] [address] Lani Wallis, [facility] [place] [address] Scheduled Orders Name Type Priority Associated Diagnoses [...] Prothrombin Time 13.5 12.0 - 15.0 sec [facility] Blood specimen (specimen) 08/21/2016 1:10 PM EDT 08/21/2016 1:25 PM EDT Narrative Resulting Agency Comment Spec In Lab Beti Hudson MD HEMATOLOGY ORDERABLE S [facility] [place] [address] * (ABNORMAL) Comprehensive metabolic panel (non-fasting) (08/21/2016 1:10 PM EDT) Glucose 167 65 - 199 mg/dL [facility] Comment:Diabetes: >=200 mg/d L plus symptoms Blood Urea Nitrogen 18 8 - 18 mg/dL [facility] Creatinine 0.71 0.70 - 1.20 mg/dL [facility] Comment: Please note that the pediatric reference intervals supplied above were not validated at [facility]. Results from pediatric patients should be interpreted in conjunction to the patient's age, height and muscle mass. Sodium 139 135 - 145 mmol/L [facility] Potassium 4.4 3.5 - 5.0 mmol/L [facility] Comment: Please note: ??Patients with WBC >100,000 may have falsely elevated Potassium levels. ??For accurate Potassium quantification in these patients send serum separator tube (gold top) for subsequent determinations. ??Contact the Clinical Chemistry Laboratory if there are any questions. Chloride 95(L) 98 - 107 mmol/L [facility] Carbon Dioxide 28 22 - 31 mmol/L [facility] Anion Gap 16(H) 5 - 15 mmol/L [facility] Calcium 10.7(H) 8.5 - 10.5 mg/dL [facility] Protein, Total 7.7 6.1 - 8.0 gm/dL [facility] Albumin 5.0 3.2 - 5.2 gm/dL [facility] Aspartate Aminotransferase 32(H) 0 - 30 unit/L [facility] Alanine Aminotransferase 38(H) 0 - 30 unit/L [facility] Alkaline Phosphatase 60 40 - 104 unit/L [facility] Bilirubin, Total 0.7 0.2 - 1.3 mg/dL [facility] Bilirubin, Direct 0.2 0.0 - 0.3 mg/dL [facility] Est Glomerular Filtration Rate >60 >=60 [facility] Comment: This estimated GFR (eGFR) [...] the following links into your internet browser. [email or web address] Blood specimen (specimen) 08/21/2016 1:10 PM EDT 08/21/2016 1:25 PM EDT Narrative Resulting Agency Comment Spec In Lab Beti Hudson MD CHEMISTRY ORDERABLES [facility] [place] [id number] * US Abdomen Complete With Vascular (08/21/2016 [...] 12:13 pm) PATIENT INFO: ID #: ? [id number] ? : [birth year] (76 yrs) Name: ? NICK MENDIETA ? Visit Date:08/21/2016 11:21 am PERFORMED BY: Performed By: ? Aysha Forde RDMS Attending: ?Chapo GALLO, Dinh Butler Referred By: ?BETI HUDSON MD Secondary Phy.: ?? LANI WALLIS APRN Location: ? [place] SERVICE(S) PROVIDED: ??UABDCVASC - Abdominal Complete Survey with Vascular - 80956, [id number] ??[id number] INDICATIONS: ??Cirrhosis: survey for hepatocellular carcinoma, ??evaluate [...] Final 08/21/2016 12:13pm) PATIENT INFO: ID #: [id number] : [birth year] (76 yrs) Name: NICK MENDIETA Visit Date:08/21/2016 11:21 am PERFORMED BY: Performed By: Aysha Forde RDMS Attending: Dinh Cowan MD Referred By: BETI HUDSON MD Secondary Phy.: LANI WALLIS APRN Location: [place] SERVICE(S) PROVIDED: UABDCVASC - Abdominal Complete Survey with Vascular - [id number], [id number] INDICATIONS: Cirrhosis: survey for hepatocellular carcinoma, evaluate [...] disease documented in this encounter Care Teams Welfare Case Worker Relationship Specialty Start Date End Date Salome Mcarthur, MASS SPECTROSCOPIST [address] [place] [address] PCP - General Family Medicine 05/30/15 12/11/23 documented as of this encounter
--- OUTSIDE RECORDS SUMMARY | 2024-03-23 12:39 | XMS_ITS | Encounter Summary ---
Author Organization [facility] Address [address] [place] [address] Care Team Providers Care Cemetery Keeper Name Role Phone Salome Mcarthur WAREHOUSE TEAM MEMBER Primary Care Provider Reason for Visit * Reason Comments Rash Encounter Details Date Type Department Care Team (Late st Contact Info) Description 11/03/2023 9:30 EDT Walk-In [address] [phone] Jess Ferguson NP [address] [facility] [address] [place] [address] Intertrigo (Primary Dx) Social History [...] 0915 EDT Temperature 36.1 ??C (96.9 ??F) 11/03/202315 EDT Respiratory Rate 16 11/03/2023914 EDT Oxygen Saturation 98% 11/03/2023914 EDT Inhaled Oxygen Concentration - - Weight - - Height - - Body Mass Index - - documented in this encounter Mental Status * Because of a physical, mental, or emotional condition, do you have serious difficulty concentrating, remembering, or making decisions? (5 years old or older) Answer Entry Date Author Yes 08/21/2011 16:30 EDT Sophia oLpez RN documented in this encounter Patient Instructions [...] Refills Last Filled Start Date End Date clotrimazole (LOTRIMIN) 1 % creamIndications:I ntertrigo Apply 1 application topically to affected area 2 times daily. 60 g 1 11/03/2023 cephalexin (KEFLEX) 500 mg capsuleIndications :Intertrigo Take 1 Capsule by mouth 3 times daily for 7 days. 21 Capsule 11/03/2023 documented in this encounter Progress Notes * Caryn Jacobsen MA - 11/03/2023 0930 EDT Patient here with a rash in groin/vaginal area it is itchy, sore, and swollen started 3 weeks ago. Has tried Clobetasol ointment without relief. * Jess Ferguson NP - 11/03/2023 8241 EDT [facility] Chief Complaint(s): Chief Complaint Patient [...] may reflect changes made after this encounter. metoprolol SUCCinate (TOPROL-XL) 50 mg tablet Take [...] by mouth 2 times daily. 08/09/2023 lancets (Aria SystemsTOUCH DELICA PLUS LANCET) 30 gauge misc USE 1 LANCET THREE TIMES A DAY DIRECTED blood glucose meter (Aria SystemsTOUCH ULTRA2 METER) Use 1 unit as directed [...] syndrome. added in this encounter Care Teams Cemetery Keeper Relationship Specialty Start Date End Date Salome Mcarthur NP [address] [place] [address] PCP - General 03/14/20 documented as of this encounter
--- OUTSIDE RECORDS SUMMARY | 2024-03-23 12:39 | XMS_ITS | Encounter Summary ---
[facility] Organization [facility] [address] Care Team Providers Care Fruit Coordinator Name Role Phone Salome Lopez APRN Primary Care Provider +1 [phone] Reason for Visit * Reason Comments GI Problem * Consultation (Routine) - Closed Specialty Diagnoses / Procedures Referred By Jose bermudez Referred To Contact Gastroenterology Diagnoses fatty liver disease Salome Lopez APRN [address] [place] [address] [facility] [address] Referral ID Status Reason Start Date Expiration Date V isits Requested Visits Authorized [id number] Closed Evaluate and Treat [facility] 05/30/2015 05/29/2016 1 1 Encounter Details Date Type Department Care Team (Late st Contact Info) Description 06/28/2015 2:30 PM EDT Office [place] [address] Lani Wallis APRN [facility] [place] [address] NAFLD (nonalcoholic fatty liver disease); Cirrhosis of [...] in this encounter Progress Notes * Lani Wallsi APRN - 06/28/2015 2:54 PM EDT HEPATOLOGY NEW PATIENT CONSULTATION Nick Mendieta 1940 REPAIRER HANDTOOLS: LANI WALLIS APRN PCP: SALOME LOPEZ APRN [...] alcohol. Her sister is followed here at [facility] and is thinking about liver transplant. In [...] 100 mg by mouth as needed. ??? [place]-3 Fatty Acids-Vitamin E (FISH OIL) 1,000 mg [...] Vibration Controlled Transient Elastography (VCTE) or Fibroscan [place] Protocol: Patient's identity, procedure and site were [...] Wallis APRN Section of Gastroenterology [place] [address] Copy: SALOME LOPEZ APRN [address] / [place] [address] documented in this encounter Miscellaneous Notes * Addendum Note - Lexis Pineda - 06/28/2015 4:20 PM EDTAddended by: LEXIS PINEDA on: 06/28/2015 04:20 PM Modules accepted: Orders documented in this encounter Plan of Treatment Upcoming Encounters Date Type Department Care Team (Late st Contact Info) Description 04/28/2024 11:00 AM EST [place] [address] Lani Wallis, [facility] [place] [address] 04/28/2024 2:00 PM EST Office [place] [phone] Lani Wallis, [facility] [place] [address] Scheduled Orders Name Type Priority Associated Diagnoses [...] Prothrombin Time 13.4 12.0 - 15.[address] [facility] Comment: An INR [...] International Normalization Ratio 1.0 0.9 - 1.1 [facility] Blood specimen (specimen) 02/15/2016 1:48 PM EST 02/15/2016 1:52 PM EST Narrative Resulting Agency Comment Spec In Lab Tremaine Rock MD HEMATOLOGY ORDERABL ES [facility] [place] [address] * (ABNORMAL) Comprehensive metabolic panel (non-fasting) (02/15/2016 1:48 PM EST) Glucose 205(H) 65 - 199 mg/dL [facility] Comment:Diabetes: >=200 mg/d L plus symptoms Blood Urea Nitrogen 15 8 - 18 mg/dL [facility] Creatinine 0.90 0.70 - 1.20 mg/dL [facility] Comment: Please note that the pediatric reference intervals supplied above were not validated at [facility]. Results from pediatric patients should be interpreted in conjunction to the patient's age, height and muscle mass. Sodium 141 135 - 145 mmol/L [facility] Potassium 4.0 3.5 - 5.0 mmol/L [facility] Comment: Please note: ??Patients with WBC >100,000 may have falsely elevated Potassium levels. ??For accurate Potassium quantification in these patients send serum separator tube (gold top) for subsequent determinations. ??Contact the Clinical Chemistry Laboratory if there are any questions. Chloride 98 98 - 107 mmol/L [facility] Carbon Dioxide 29 22 - 31 mmol/L [facility] Anion Gap 14 5 - 15 mmol/L [facility] Calcium 10.5 8.5 - 10.5 mg/dL [facility] Protein, Total 7.1 6.1 - 8.0 gm/dL [facility] Albumin 4.7 3.2 - 5.2 gm/dL [facility] Aspartate Aminotransferase 37(H) 0 - 30 unit/L [facility] Alanine Aminotransferase 31(H) 0 - 30 unit/L [facility] Alkaline Phosphatase 44 40 - 104 unit/L [facility] Bilirubin, Total 0.5 0.2 - 1.3 mg/dL [facility] Bilirubin, Direct 0.2 0.0 - 0.3 mg/dL [facility] Est Glomerular Filtration Rate >60 >=60 [facility] Comment: This estimated GFR (eGFR) [...] the following links into your internet browser. [email or web address] Blood specimen (specimen) 02/15/2016 1:48 PM EST 02/15/2016 1:52 PM EST Narrative Resulting Agency Comment Spec In Lab Tremaine Rock MD CHEMISTRY ORDERABLE S [facility] [place] [address] * US Abdomen Complete With Vascular (02/15/2016 [...] 01:34 pm) PATIENT INFO: ID #: ? [id number] ? : [birth year] (75 yrs) Name: ? NICK MENDIETA ? Visit Date:02/15/2016 10:44 am PERFORMED BY: Performed By: ? Colton Coppola RDMS Attending: ?Jaja GALLO, Sumi Kang Referred By: ?TREMAINE ROCK MD Secondary Phy.: ?? LANI WALLIS APRN Location: ? [place] SERVICE(S) PROVIDED: ??UABDCVASC - Abdominal Complete Survey with Vascular - 11565, 50429 ??[id number] INDICATIONS: ??Cirrhosis: survey for Hepatocellular carcinoma, ??evaluate [...] Final 02/15/2016 01:34pm) PATIENT INFO: ID #: [id number] : [birth year] (75 yrs) Name: NICK MENDIETA Visit Date:02/15/2016 10:44 am PERFORMED BY: Performed By: Colton Coppola RDMS Attending: Sumi Wilkinson MD Referred By: TREMAINE ROCK MD [facility] Phy.: LANI WALLIS APRN Location: [place] SERVICE(S) PROVIDED: UABDCVASC - Abdominal Complete Survey with Vascular - 05139, 34719 [id number] INDICATIONS: Cirrhosis: survey for Hepatocellular carcinoma, evaluate [...] 04:17 pm) Patient Info ID #: ? [id number] ? : [birth year] (75 yrs) Name: ? NICK MENDIETA ? Visit Date:07/22/2015 09:18 am Performed By Performed By: ? Michelle Major RDMS Attending: ?Juliane GALLO, Meghan Ventura Associate: ?Mat Dotson MD Referred By: ?TREMAINE ROCK MD Service(s) Provided ??UABDCVASC - Abdominal Complete Survey with Vascular - 39590, 30402 ??[id number] Indications ??Cirrhosis: survey for hepatocellular carcinoma, ??evaluate [...] Final 08/03/2015 04:17pm) Patient Info ID #: [id number] : [birth year] (75 yrs) Name: NICK MENDIETA Visit Date:07/22/2015 09:18 am Performed By Performed By: Michelle Major RDMS Attending: Meghan Cardozo MD Associate: Mat Dotson MD Referred By: TREMAINE ROCK MD Service(s) Provided UABDCVASC - Abdominal Complete Survey with Vascular - 14460, 58508 [id number] Indications Cirrhosis: survey for hepatocellular carcinoma, evaluate [...] 4:22 PM EDT) Neutrophil % 48.9 % [facility] Neutrophil Absolute 4.02 1.50 - 6.30 x10(3)/[facility] Lymph % 43.3 % [facility] Lymphocytes Abs 3.6 1.0 - 3.6 x10(3)/[facility] Monocyte % 6.3 % [facility] Monocyte Abs 0.5 0.2 - 1.0 x10(3)/[facility] Eos % 1.1 % [facility] Eosinophils Abs 0.1 0.0 - 0.5 x10(3)/[facility] Basophil % 0.2 % [facility] Baso Absolute 0.0 0.0 - 0.2 x10(3)/[facility] Immature Gran % 0.20 % [facility] Comment: Immature granulocytes(IG's)percentage and absolute count will include metamyelocytes, myelocytes, and promyelocytes. Blood smears from CBCs yielding IG's will be scanned manually for concordance. If this scan disagrees with the automated IG or if promyelocytes are noted, a manual differential will be performed. Immature Gran Absolute 0.02 0.00 - 0.05 x10(3)/[facility] Blood specimen (specimen) 06/28/2015 4:22 PM EDT 06/28/2015 4:24 PM EDT Narrative Resulting Agency Comment Spec In Lab Tremaine Rock MD HEMATOLOGY ORDERABL ES [facility] [place] [address] * Hemogram (06/28/2015 4:22 PM EDT) White Blood Cell 8.2 4.0 - 10.0 x10(3)/[facility] Red Blood Cell 4.57 3.93 - 5.22 x10(6)/[facility] Hemoglobin 14.4 11.2 - 15.7 gm/dL [facility] Hematocrit 42.0 34.0 - 45.0 % [facility] Mean Cell Volume 91.9 79.0 - 94.[address] [facility] Mean Cell Hemoglobin 31.5 26.6 - 32.[address] [facility] Mean Cell Hemoglobin Concentration 34.3 32.0 - 36.5 gm/dL [facility] Platelet 168 145 - 370 x10(3)/[facility] RDW Standard Deviation 42.1 35.0 - 46.[address] [facility] RDW coefficient of variation 12.5 10.9 - 14.4 % [facility] Mean Platelet Volume 11.6 9.0 - 12.[address] [facility] Blood specimen (specimen) 06/28/2015 4:22 PM EDT 06/28/2015 4:24 PM EDT Narrative Resulting Agency Comment Spec In Lab Tremaine Rock MD HEMATOLOGY ORDERABL ES [facility] [place] [address] * Hepatitis B Surface Antigen (06/28/2015 4:22 PM EDT) Hepatitis B Surface Antigen Negative Negative [facility] Blood specimen (specimen) 06/28/2015 4:22 PM EDT 06/28/2015 4:25 PM EDT Narrative Resulting Agency Comment Spec In Lab Tremaine Rock MD CHEMISTRY ORDERABLE S Performing Organization Address [facility]/ZIP Co de Phone Number [facility] [place] [address] * Hepatitis C Antibody (06/28/2015 4:22 PM EDT) Hepatitis C Antibody Negative Negative [facility] Blood specimen (specimen) 06/28/2015 4:22 PM EDT 06/28/2015 4:25 PM EDT Narrative Resulting Agency Comment Spec In Lab Tremaine Rock MD CHEMISTRY ORDERABLE S Performing Organization Address [facility] de Phone Number [facility] [place] [address] * Hepatitis B Surface Antibody (06/28/2015 4:22 PM EDT) Hepatitis B Surface Antibody Negative [facility] Comment: Expected Results: Vaccinated: Positive [...] MD CHEMISTRY ORDERABLE S Performing Organization Address [facility] Co de Phone Number [facility] [place] [address] * Hepatitis A Antibody, Total (06/28/2015 4:22 PM EDT) Hepatitis A ANTIBODY, TOTAL Negative Negative [facility] Blood specimen (specimen) 06/28/2015 4:22 PM EDT 06/28/2015 4:25 PM EDT Narrative Resulting Agency Comment Spec In Lab Tremaine Rock MD CHEMISTRY ORDERABLE S [facility] [place] [address] * Hepatitis B Core Antibody, Total (06/28/2015 4:22 PM EDT) Hepatitis B Core Antibody Negative Negative [facility] Blood specimen (specimen) 06/28/2015 4:22 PM EDT 06/28/2015 4:25 PM EDT Narrative Resulting Agency Comment Spec In Lab Tremaine Rock MD CHEMISTRY ORDERABLE S Performing Organization Address City/[facility]/ZIP Co de Phone Number [facility] [place] [address] * Iron and TIBC (06/28/2015 4:22 PM EDT) Iron 101 30 - 150 mcg/dL [facility] TIBC 432 250 - 450 mcg/dL [facility] Iron Saturation 23 20 - 50 % [facility] Blood specimen (specimen) 06/28/2015 4:22 PM EDT 06/28/2015 4:25 PM EDT Narrative Resulting Agency Comment Spec In Lab Tremaine Rock MD CHEMISTRY ORDERABLE S Performing Organization Address City/[facility]/ZIP Co de Phone Number [facility] [place] [address] * Ferritin (06/28/2015 4:22 PM EDT) Ferritin 152 30 - 400 ng/mL [facility] Comment: Pediatric reference ranges not verified at [facility], interpret with caution. Reference ranges for females greater than 50 years of age approach values for men, i.e., 30-400 ng/mL. Blood specimen (specimen) 06/28/2015 4:22 PM EDT 06/28/2015 4:25 PM EDT Narrative Resulting Agency Comment Spec In Lab Tremaine Rock MD CHEMISTRY ORDERABLE S [facility] [place] [address] documented in this encounter Visit Diagnoses Diagnosis [...] type documented in this encounter Care Teams Fruit Coordinator Relationship Specialty Start Date End Date Salome Lopez, PIPE FITTER APPRENTICE [address] [place] [address] PCP - General Family Medicine 05/30/15 12/11/23 documented as of this encounter
--- OUTSIDE RECORDS SUMMARY | 2024-03-23 12:39 | XMS_ITS | Encounter Summary ---
Author Organization [facility] [place] [address] Care Team Providers Care Picket Labor Union Name Role Phone Salome Mcarthur APRN Primary Care Provider [phone] [phone] Encounter Details Date Type Department Care Team (Late st Contact Info) Description 02/08/2009 [place] [phone] Marvin Lord MD [facility] [place] [address] Social History Tobacco Use Types Packs/Day Years Used Date Smoking Tobacco: Never Assessed Sex and Gender Information Value Date Recorded Sex Assigned at Not on file Gender Identity Not on file Sexual Orientation Not on file documented as of this encounter Plan of Treatment Upcoming Encounters Date Type Department Care Team (Late st Contact Info) Description 04/28/2024 11:00 AM EST Appoint[place] [phone] [facility] [place] [address] 04/28/2024 2:00 PM EST Office [place] [phone] Molly Cui LOAD BLOCKER [facility] [place] [address] documented as of this encounter Procedures Procedure Name Priority Date/Time Associated Diagnosis Comments SURGICAL PATHOLOGY REPORT Routine 02/08/2009 7:28 AM EST documented in this encounter Results * Surgical Pathology Report (02/08/2009 7:28 AM EST) Surgical Pathology Report [id number] ? Location: [facility] The signing pathologist has (i) examined the relevant preparation(s) for the specimen(s) and (ii) rendered or confirmed the diagnosis(es). . ?Pathology Surgical Pathology Final Report Clinical Information Specimen Submitted: CONSULTATION CASE A - 4 slides labeled [id number], collection date 2008. B - 6 slides labeled [id number], collection date 01/18/2009. [id number] Report to: Anjel De La Torre MD Department of Pathology [facility] [address] [place] [address] ??[id number] Gross Description [facility]'s pathology slide(s) are reviewed. ??Refer to Diagnosis and Specimen Submitted for specific case information. For the full text of the [facility] report(s) please refer to Non-DH Documentation Pathology in the Clinical Information System (CIS). Microscopic Description Slides reviewed, microscopic description not recorded. Diagnosis CONSULTATION CASE A - Outside slides labeled [id number], collection date 2008: ?1. 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 ?There is no evidence of dysplasia. ?2. ??Urinary bladder, inferior to main tumor, biopsy: ?Urothelial mucosa with chronic inflammation and reactive atypia. ?There is no evidence of dysplasia. B - Outside slides labeled [id number], collection date 01/18/2009: ?1. ??Bladder, left dome, [...] in rendering the final pathologic diagnosis. JORY WARDRANDOLPH 02/08/2009 7:28 AM EST Marvin Lord MD PATHOLOGY/CYTOLOGY O RDERADOMINGA Performing Organization Address City/State/[facility] Co de Phone Number [facility] documented in this encounter Visit Diagnoses Not on filedocumented in this encounter Care Teams Picket [employer] Relationship Specialty Start Date End Date Salome Mcarthur, LOAD BLOCKER [address] [place] [address] PCP - General Family Medicine 05/30/15 12/11/23 documented as of this encounter
--- OUTSIDE RECORDS SUMMARY | 2024-03-23 12:39 | XMS_ITS | Encounter Summary ---
Author Organization [facility] [place] [address] Care Team Providers Care Insurance Policy Issue Clerk Name Role Phone Salome Mcarthur APRN Primary Care Provider [phone] [phone] Reason for Visit * Reason Comments Follow-up Encounter Details Date Type Department Care Team (Late st Contact Info) Description 08/21/2016 3:30 PM EDT Office [place] [address] Molly Wallis NREMT [facility] [place] [address] NAFLD (nonalcoholic fatty liver disease) Social History [...] HEPATOLOGY Follow up Visit Milka Mendieta 1940 SOLUTIONS DELIVERY CONSULTANT: MOLLY WALLIS APRN PCP: Salome Mcarthur APRN [...] mouth every 4 hours as needed. ??? [place]-3 Fatty Acids-Vitamin E (FISH OIL) 1,000 mg [...] Wallis APRN Section of Gastroenterology [place] [address] Copy: Salmoe Mcarthur APRN [address] [facility] [place] / [place] [address] 15 of this 30 minute visit in face to face discussion regarding disease, prognosis and treatment documented in this encounter Plan of Treatment Upcoming Encounters Date Type Department Care Team (Late st Contact Info) Description 04/28/2024 11:00 AM [place] [address] Molly Wallis APRN [facility] [place] [address] 04/28/2024 2:00 PM EST Office [place] [address] Molly Wallis NREMT [facility] [place] [address] Scheduled Orders Name Type Priority Associated Diagnoses [...] 10:44 am) PATIENT INFO: ID #: ? [id number] ?: ??[birth year] (76 yrs) Name: ? MILKA MENDIETA ?Visit Date: 02/22/2017 10:24 am PERFORMED BY: Performed By: ? Macario GEORGEMN, ??Debbi Attending: ?Betty GALLO, Marilee Ragsdale Referred By: ?MOLLY WALLIS Secondary Phy.: ?? MOLLY WALLIS NREMT Location: ? [place] SERVICE(S) PROVIDED: ??UABDLIM - Abdominal Limited Survey Single ? 84757 ??Organ or Quadrant - [id number] INDICATIONS: ??Compensated cirrhosis, assess for HCC COMPARISON: [...] 02/22/2017 10:44 am) PATIENT INFO: ID #: [id number] : [birth year] (76 yrs) Name: MILKA MENDIEAT Visit Date: 02/22/2017 10:24 am PERFORMED BY: Performed By: Debbi Sorto RDMS Attending: Marilee Hernández MD Referred By: MOLLY WALLIS [facility] Phy.: MOLLY WALLIS APRN Location: [place] SERVICE(S) PROVIDED: UABDLIM - Abdominal Limited Survey Single 49000 Organ or Quadrant - [id number] INDICATIONS: Compensated cirrhosis, assess for HCC COMPARISON: [...] common hepatic duct at 6 mm. Marilee Huffman MD Electronically Signed Final Report 02/22/2017 10:44 am Molly Wallis APRN [facility] US GEN ORDERAB LES documented in this encounter Visit Diagnoses Diagnosis NAFLD (nonalcoholic fatty liver disease) Other chronic nonalcoholic liver disease NAFLD (nonalcoholic fatty liver disease) Other chronic nonalcoholic liver disease documented in this encounter Care Teams Insurance Policy Issue Clerk Relationship Specialty Start Date End Date Salome Mcarthur APRN [address] [address] PCP - General Family Medicine 05/30/15 12/11/23 documented as of this encounter
--- OUTSIDE RECORDS SUMMARY | 2024-03-23 12:39 | XMS_ITS | Encounter Summary ---
Author Organization [facility] [place] [address] Care Team Providers Care Beater Engineer Name Role Phone Salome Lopez APRN Primary Care Provider [phone] [phone] Reason for Visit * Reason Comments Follow-up Encounter Details Date Type Department Care Team (Late st Contact Info) Description 07/22/2015 10:00 AM EDT Office [place] [address] Molly Wallis NEWS LIBRARY DIRECTOR [facility] [place] [address] NAFLD (nonalcoholic fatty liver disease) Social History [...] HEPATOLOGY Follow up Visit Milka Corbett 1940 RECORDS TECH: MOLLY WALLIS APRN PCP: SALOME LOPEZ APRN [...] 100 mg by mouth as needed. ??? [place]-3 Fatty Acids-Vitamin E (FISH OIL) 1,000 mg [...] ?found in the gastric antrum. ?Hematin (altered blood/bdouro-sdoucu-wtmr material) ?was found in the gastric body. [...] Wallis APRN Section of [place] [address] Copy: SALOME LOPEZ APRN [address] / [place] [id number] 25 of this 30 minute visit in face to face discussion regarding disease, prognosis and treatment documented in this encounter Plan of Treatment Upcoming Encounters Date Type Department Care Team (Late st Contact Info) Description 04/28/2024 11:00 AM EST Appointment Ultrasound at [place] [phone] Molly Wallis NEWS LIBRARY DIRECTOR [facility] [place] [address] 04/28/2024 2:00 PM EST Office [place] [phone] Molly Wallis [facility] [place] [address] documented as of this encounter Visit Diagnoses Diagnosis NAFLD (nonalcoholic fatty liver disease) Other chronic nonalcoholic liver disease documented in this encounter Care Teams Beater Engineer Relationship Specialty Start Date End Date Salome Lopez APRN [address] [place] [address] PCP - General Family Medicine 05/30/15 12/11/23 documented as of this encounter
--- OUTSIDE RECORDS SUMMARY | 2024-03-23 12:39 | XMS_ITS | Encounter Summary ---
Author Organization [facility]ly [facility] Address [facility] [place] [address] Care Team Providers Care General Operator Name Role Phone Salome Mcarthur APRN Primary Care Provider [phone] [phone] Encounter Details Date Type Department Care Team (Latest Contact Info) Description 08/21/2016 10:30 AM EDT - 08/21/2016 11:59 PM EDT Hospital [place] [phone] Beti Hudson MD [facility] [place] [address] NAFLD (nonalcoholic fatty liver disease) Discharge Disposition: [...] 04/28/2024 11:00 AM EST [place] [address] Molly Wallis [facility] [place] [address] 04/28/2024 2:00 PM EST Office [place] [address] Molly Wallis [facility] [place] [address] documented as of this encounter Procedures Procedure [...] 12:13 pm) PATIENT INFO: ID #: ? [id number] ? : [birth year] (76 yrs) Name: ? MILKA MENDIETA ? Visit Date:08/21/2016 11:21 am PERFORMED BY: Performed By: ? Aysha Forde RDMS Attending: ?Chapo GALLO, Dinh Butler Referred By: ?BETI HUDSON MD Secondary Phy.: ?? MOLLY WALLIS APRN Location: ? [place] SERVICE(S) PROVIDED: ??UABDCVASC - Abdominal Complete Survey with Vascular - 58882, 86007 ??[id number] INDICATIONS: ??Cirrhosis: survey for hepatocellular carcinoma, ??evaluate [...] Final 08/21/2016 12:13pm) PATIENT INFO: ID #: [id number] : [birth year] (76 yrs) Name: MILKA MENDIETA Visit Date:08/21/2016 11:21 am PERFORMED BY: Performed By: Aysha Forde RDMS Attending: Dinh Cowan MD Referred By: BETI HUDSON MD Secondary Phy.: MOLLY WALLIS APRN Location: [place] SERVICE(S) PROVIDED: UABDCVASC - Abdominal Complete Survey with Vascular - 15972, 99903 [id number] INDICATIONS: Cirrhosis: survey for hepatocellular carcinoma, evaluate [...] disease documented in this encounter Care Teams General Operator Relationship Specialty Start Date End Date Salome Mcarthur, B2B SALES CONSULTANT [address] [place] [address] PCP - General Family Medicine 05/30/15 12/11/23 documented as of this encounter
--- OUTSIDE RECORDS SUMMARY | 2024-03-23 12:39 | XMS_ITS | Encounter Summary ---
Author Organization [facility] [place] [address] Care Team Providers Care Automatic Silk Screen Printer Name Role Phone Salome Mcarthur APRN Primary Care Provider [phone] Encounter Details Date Type Department Care Team (Latest Contact Info) Description 08/21/2016 12:55 PM EDT Laboratory Appointment Lab [address] [place] [address] NAFLD (nonalcoholic fatty liver disease) [...] 04/28/2024 11:00 AM [place] [address] Molly Cui [facility] [place] [address] 04/28/2024 2:00 PM EST Office [place] [address] Molly Cui [facility] [place] [address] documented as of this encounter Procedures Procedure [...] 1:10 PM EDT) Neutrophil % 50.3 % [facility] Neutrophil Absolute 4.49 1.70 - 6.10 x10(3)/mc L [facility] Lymph % 39.2 % [facility] Lymphocytes Abs 3.5(H) 0.9 - 3.2 x10(3)/mc L [facility] Monocyte % 8.0 % [facility] Monocyte Abs 0.7 0.3 - 0.9 x10(3)/mc L [facility] Eos % 1.5 % [facility] Eosinophils Abs 0.1 0.0 - 0.4 x10(3)/mc L [facility] Basophil % 0.8 % [facility] Baso Absolute 0.1 0.0 - 0.1 x10(3)/mc L [facility] Immature Gran % 0.20 % [facility] Comment: Immature granulocytes(IG's)percentage and absolute count will include metamyelocytes, myelocytes, and promyelocytes. Blood smears from CBCs yielding IG's will be scanned manually for concordance. If this scan disagrees with the automated IG or if promyelocytes are noted, a manual differential will be performed. Immature Gran Absolute 0.02 0.00 - 0.04 x10(3)/mc L [facility] Blood specimen (specimen) 08/21/2016 1:10 PM EDT 08/21/2016 1:25 PM EDT Narrative Resulting Agency Comment Spec In Lab Beti Laureano MD HEMATOLOGY ORDERABLE S [facility] [place] [address] * Hemogram (08/21/2016 1:10 PM EDT) White Blood Cell 8.9 4.0 - 9.5 x10(3)/[facility] Red Blood Cell 4.85 4.00 - 5.21 x10(6)/[facility] Hemoglobin 15.2 11.7 - 15.5 gm/dL [facility] Hematocrit 43.8 35.7 - 45.8 % [facility] Mean Cell Volume 90.3 82.6 - 94.4 fL [facility] Mean Cell Hemoglobin 31.3 27.1 - 32.0 pg [facility] Mean Cell Hemoglobin Concentration 34.7 31.7 - 35.0 gm/dL [facility] Platelet 162 145 - 357 x10(3)/[facility] RDW Standard Deviation 40.9 37.0 - 46.0 [facility] RDW coefficient of variation 12.5 11.5 - 14.1 % [facility] Mean Platelet Volume 11.6 7.6 - 12.9 [facility] NRBC% auto 0.0 % [facility] NRBC Absolute 0.000 0.000 - 0.000 x10(3)/[facility] Blood specimen (specimen) 08/21/2016 1:10 PM EDT 08/21/2016 1:25 PM EDT Narrative Resulting Agency Comment Spec In Lab Beti Laureano MD HEMATOLOGY ORDERABLE S Performing Organization Address [facility] Co de Phone Number [facility] [place] [address] * Prothrombin Time (08/21/2016 1:10 PM EDT) Prothrombin Time 13.5 12.0 - 15.0 sec [facility] Comment: An INR <2.0 indicates [...] International Normalization Ratio 1.0 0.9 - 1.1 [facility] Blood specimen (specimen) 08/21/2016 1:10 PM EDT 08/21/2016 1:25 PM EDT Narrative Resulting Agency Comment Spec In Lab Beti Laureano MD HEMATOLOGY ORDERABLE S Performing Organization Address [facility] Co de Phone Number [facility] [place] [address] * (ABNORMAL) Comprehensive metabolic panel (non-fasting) (08/21/2016 1:10 PM EDT) Pathologist [facility] Glucose 167 65 - 199 mg/dL [facility] Comment:Diabetes: >=200 mg/d L plus symptoms Blood Urea Nitrogen 18 8 - 18 mg/dL [facility] Creatinine 0.71 0.70 - 1.20 mg/dL [facility] Comment: Please note that the pediatric reference intervals supplied above were not validated at [facility]. Results from pediatric patients should be interpreted in conjunction to the patient's age, height and muscle mass. Sodium 139 135 - 145 mmol/L [facility] Potassium 4.4 3.5 - 5.0 mmol/L [facility] Comment: Please note: ??Patients with WBC >100,000 may have falsely elevated Potassium levels. ??For accurate Potassium quantification in these patients send serum separator tube (gold top) for subsequent determinations. ??Contact the Clinical Chemistry Laboratory if there are any questions. Chloride 95(L) 98 - 107 mmol/L [facility] Carbon Dioxide 28 22 - 31 mmol/L [facility] Anion Gap 16(H) 5 - 15 mmol/L [facility] Calcium 10.7(H) 8.5 - 10.5 mg/dL [facility] Protein, Total 7.7 6.1 - 8.0 gm/dL [facility] Albumin 5.0 3.2 - 5.2 gm/dL [facility] Aspartate Aminotransferase 32(H) 0 - 30 unit/L [facility] Alanine Aminotransferase 38(H) 0 - 30 unit/L [facility] Alkaline Phosphatase 60 40 - 104 unit/L [facility] Bilirubin, Total 0.7 0.2 - 1.3 mg/dL [facility] Bilirubin, Direct 0.2 0.0 - 0.3 mg/dL [facility] Est Glomerular Filtration Rate >60 >=60 [facility] Comment: This estimated GFR (eGFR) [...] the following links into your internet browser. http://Eurocept/DHnkdep http://Eurocept/DHMCnkf Blood specimen (specimen) 08/21/2016 1:10 PM EDT 08/21/2016 1:25 PM EDT Narrative Resulting Agency Comment Spec In Lab Beti Laureano MD CHEMISTRY ORDERABLES [facility] [place] [place] [address] documented in this encounter Visit Diagnoses Diagnosis NAFLD (nonalcoholic fatty liver disease) Other chronic nonalcoholic liver disease documented in this encounter Care Teams Automatic Silk Screen Printer Relationship Specialty Start Date End Date Salome Mcarthur APRN [address] [place] [address] PCP - General Family Medicine 05/30/15 12/11/23 documented as of this encounter
--- OUTSIDE RECORDS SUMMARY | 2024-03-23 12:39 | XMS_ITS | Referral Summary ---
Author Organization [facility] Address [address] [place] [address] Care Team Providers Care Flexographic Press Plate Setter Name Role Phone Salome Mcarthur WET MILLING WHEEL OPERATOR Primary Care Provider [phone] Encounters Date Type Department Care Team Description 02/02/2024 12:30 EDT Walk-In [facility] [address] [place], [place] [id number] Tristan Santa, JEIMY Acute cough (Primary Dx) from Last 3 Months Allergies Active Allergy [...] Additional Information Patient not taking.Reported on 03/16/2020 Conowingo-3 Fatty Acids-Vitamin E (FISH OIL) 1,000 mg [...] DAILY OR NEEDED FOR DRY MOUTH 07/12/19 Active amitriptyline (ELAVIL) 50 mg tablet TAKE [...] Tablet by mouth 2 times daily. 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 (5 years old or older) Answer Entry Date Author Yes 08/21/2011 16:30 Sophia Kaur, RN Plan of Treatment Not on file Insurance [facility] Advance Directives For more information, please contact: [phone] * Full Code (Latest Code Status on File) Date Activated Date Inactivated Comments 08/21/2011 16:46 08/22/2011 17:10 Care Teams Flexographic Press Plate Setter Relationship Specialty Start Date End Date Salome Mcarthur NP [address] [place] [address] PCP - General 03/14/20
--- OUTSIDE RECORDS SUMMARY | 2024-03-23 12:40 | XMS_ITS | Encounter Summary ---
Author Organization [facility] Address [address] [place] [address] Care Team Providers Care Wind Field Service Manager Name Role Phone Agustin Ramires MD Primary Care Provider [phone] Reason for Visit * Reason Comments Post-OP Follow Up weak stream Encounter Details Date Type Department Care Team (Latest Contact Info) Description 09/13/2011 11:45 EDT Office Visit [facility] Pelvic Medicine and Reconstructive Surgery - Medical Office [facility] [address] [place] [address] Tim Molina MD [address] [place] [phone] Female bladder prolapse (Primary Dx); Rectocele; Mixed incontinence urge and stress Social History Tobacco Use Types Packs/Day Years Used Date Smoking Tobacco: Never Smokeless Tobacco: Never Alcohol Use Standard Drinks/Week Comments No 0 (1 standard drink = 0.6 oz pur e alcohol) Comments No Sex and Gender Information Value Date Recorded Sex Assigned at Not on file Legal Sex Female 18:18 EST Gender Identity Female 02/14/2022 14:15 EST Sexual Orientation Not on file Occupation Industry Job Start Date Job End Date Not on file Not on file Not on file Not on file documented as of this encounter Mental Status * Because of a physical, mental, or emotional condition, do you have serious difficulty concentrating, remembering, or making decisions? (5 years old or older) Answer Entry Date Author Yes 08/21/2011 16:30 EDT Sophia Lopez RN documented in this encounter Progress Notes * Tim Molina MD - 09/14/2011 0858 EDT [facility] [place] [address] Telephone Toll-Free PROGRESS/FOLLOWUP NOTE - 09/13/2011 SUBJECTIVE: [...] next 6 weeks. Since I am leaving [place], she will need to follow up with an alternative urologist in the future and, of course, this could be Dr Ashutosh alcaraz or one of the urologists here at [facility] as needed. Electronically Signed by Tim Molina MD 09/18/2011 13:28 Tim Molina MD - Tim Molina MD - MLD Job ID: SM Doc ID: [id number] Ext Doc ID: [id number] cc: MD Leland Aburto MD * Tim [...] URINE DIPSTICK (09/13/2011 11:38 EDT) Color YELLOW [facility] Clarity, UA Clear [facility] Glucose Neg Neg [facility] Bilirubin Neg Neg [facility] Ketones Neg Neg [facility] Specific [place] <=1.005 1.001 - 1.035 [facility] Blood Trace(A) Neg [facility] pH 5.0 4.6 - 8.0 [facility] Protein Neg Neg [facility] Urobilinogen 0.2 0.2 - 1.0 E.U./dl [facility] Nitrite Neg Neg [facility] Leuk Esterase 1+(A) Neg MAGY CURIEL [facility] supervisor lump room ID [id number] [facility] Comment:Test performed at [facility] Urine specimen (specimen) 09/13/2011 11:38 EDT 09/13/2011 11:44 EDT us Tim Molina MD POINT OF CARE TEST ORDERABL ES Final Result [facility] [address] [place] [address] documented in this encounter Visit Diagnoses Diagnosis Female bladder prolapse- Primary Cystocele, midline Rectocele Mixed incontinence urge and stress Mixed incontinence urge and stress (male)(female) documented in this encounter Care Teams Wind Field Service Manager Relationship Specialty Start Date End Date Agustin Ramires MD [address] [place] [id number] PCP - General 08/20/11 02/23/13 documented as of this encounter
--- OUTSIDE RECORDS SUMMARY | 2024-03-23 12:40 | XMS_ITS | Encounter Summary ---
Author Organization [facility] Address [address] [place] [address] Care Team Providers Care Manager Dental Name Role Phone Salome Mcarthur ELEVATOR WORKER Primary Care Provider [phone] Encounter Details Date Type Department Care Team (Latest Contact Info) Description 09/28/2021 Plan of Care Documentation [facility] Rehabilitation Therapy [address] [place] [id number] Social History Tobacco Use Types Packs/Day Years [...] Date Author Yes 08/21/2011 16:30 EDT Sophia Lopez, RN documented in this encounter Progress Notes * Kal Clark, PT - 09/28/2021 9747 EDT Outpatient Rehab Plan of Care ASSESSMENT Therapy Diagnosis: BPPV, left posterior canalithiasis, 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 Problem List: Impaired balance, Need for an independent home exercise program and Vertigo Assessment: Pt presents with about 3 month onset of vertigo. She demonstrates mild impairments in her VOR response, possibly causing her impaired balance. Her main vertigo symptoms were elicited witha right Hallpike-Pimento maneuver, and resolved in less than 5 [...] for 6 weeks Therapy Treatment to include: 62723 - Therapeutic Exercise, 67613 - Neuromuscular Re-education, 84831 - Canalith Repositioning and 94899 - Therapeutic Activity Recommended Consults: None currently [...] Thank you! Attending Physician Signature Date Kal lCark, PT 09/28/2021 15:57 documented in this encounter Plan of Treatment Not on file documented as of this encounter Visit Diagnoses Not on filedocumented in this encounter Care Teams Manager Dental Relationship Specialty Start Date End Date Salome Mcarthur, JEIMY [address] [place] [address] PCP - General 03/14/20 documented as of this encounter
--- OUTSIDE RECORDS SUMMARY | 2024-03-23 12:40 | XMS_ITS | Encounter Summary ---
Author Organization [facility] Address [address] [place] [address] Care Team Providers Care Balloon Maker Name Role Phone Salome Mcarthur CIGAR HEAD HOLER Primary Care Provider [phone] Reason for Visit * Reason Comments New Patient Visit Spot of right calf t hat has been there for a few weeks that's getting bigger. No P/FHx of skin cancer Encounter Details Date Type Department Care Team (Late st Contact Info) Description 03/16/2020 11:00 EST Office Visit [facility] Dermatology [address] [facility] [place] [address] Brittanie Ponce MD [address] [facility], [facility] [address] [place] [address] Neoplasm of uncertain behavior of [...] file Not on file Not on file COVID-19 Exposure Response Date Recorded In the last month, have you been in contact with someone who was confirmed or suspected to have Coronavirus / COVID-19? No / Unsure 03/16/2020 11:15 EST documented as of this encounter Mental Status [...] pain should be mild. Take according to grinder operator directions. BLEEDING: You may notice some blood [...] Refills Last Filled Start Date End Date fluconazole (DIFLUCAN) 150 mg tablet Take 1 Tab by mouth every 72 hours. Until symptom free. Take as soon as symptoms begin 3 Tab 03/16/2020 mupirocin (BACTROBAN) 2 % ointment Apply topically to affected area 2 times daily. 22 g 3 03/16/2020 cephALEXin (KEFLEX) 500 mg capsule Take 1 Cap by mouth 4 times daily for 7 days. 28 Cap 03/16/2020 0 documented in this encounter Progress Notes * [...] PATIENT INFORMATION: Milka Corbett : MRN: [id number] SURGEON: Brittanie Ponce MD The indication, risks, [...] 03/16/2020 1100 EST Lidocaine Lot #[id number] EXP: [id number] documented in this encounter Miscellaneous Notes * [...] this encounter Results * ROUTINE CULTURE - [facility] (03/16/2020 11:45 EST) USUAL SKIN TRUNG - [facility] USF 03/19/2020 9:38 EST [facility] QUANT - [facility] MODERATE 03/19/2020 9:38 EST [facility] Lower limb structure (body structure) 03/16/2020 11:45 EST 03/17/2020 16:10 EST Comment:RL Daria [facility] - 03/19/2020 9:38 EST RIGHT LOWER LEG us Brittanie Ponce MD CHEMISTRY & BLOOD GAS ORDERABL ES Final Result Performing Organization Address [facility] Co de Phone Number [facility] [address] [place] [address] * GRAM SMEAR (03/16/2020 11:45 EST) GRAM STAIN - [facility] TWO SWABS RECEIVED FOR CULTURE AND GRAM STAIN 03/17/2020 19:43 [facility] BACTERIA SEEN - [facility] NO 03/17/2020 19:43 [facility] WBC NO 03/17/2020 19:43 [facility] Lower limb structure (body structure) 03/16/2020 11:45 EST 03/17/2020 16:10 EST Comment:RL Daria [facility] - 03/19/2020 9:38 EST RIGHT LOWER LEG us Brittanie Ponce MD MICROBIOLOGY - GENERAL ORDERAB LES Final Result Performing Organization Address City/[facility]/ZIP Co de Phone Number [facility] [address] [place] [address] * SURGICAL PATHOLOGY (03/16/2020 11:44 EST) Final Diagnosis A. SKIN OF LEG, RIGHT LOWER, SHAVE BIOPSY: - Seborrheic keratosis, irritated. 03/21/2020 16:17 [facility] Attestation By the signature below, the attending physician certifies that they have 1) personally conducted a gross and/or microscopic examination of the described specimen(s), and/or personally interpreted the results of laboratory testing of the described specimen(s), and 2) personally rendered or confirmed the above diagnosis. 03/21/2020 16:17 [facility] at 1617 Microscopic Description Sections consist of a shave biopsy of a papule. There is hyperkeratosis with focal parakeratosis. The papules formed by epidermal acanthosis with a focal endophytic growth pattern. The keratinocytes have reactive changes with hypergranulosis. Within the dermis, there is a patchy mixed infiltrate. Deeper sections have similar features. 03/21/2020 16:17 [facility] Clinical History Indurated tender pink papule with surrounding erythema: ?SCC vs BCC vs irritated SK vs LPLK vs other; clinical diagnosis code: D48.5 03/21/2020 16:17 [facility] Gross Description A. Received in formalin labelled with proper patient identification (initials C, S) and not otherwise specified is a shave biopsy of pale tillman to tillman-pink plaque like skin (1.1 x 0.8 x 0.1 cm). The margin is inked blue. Trisected and submitted in A1. Alexis Ponce 03/17/2020 10:16 03/21/2020 16:17 [facility] Performing Lab [facility] 03/21/2020 16:17 [facility] Scanned Images 03/21/2020 16:17 [facility] Tissue TISSUE SPECIMEN FROM SKIN / Unknown 03/16/2020 11:44 EST 03/17/2020 6:54 EST us Brittanie Ponce MD PATHOLOGY ORDERABLES Final Res ult [facility] [address] [place] [address] documented in this encounter Visit Diagnoses Diagnosis [...] documented as of this encounter Care Teams Balloon Maker Relationship Specialty Start Date End Date Salome Mcarthur, CIGAR HEAD HOLER [address] [place] [address] PCP - General 03/14/20 documented as of this encounter
--- OUTSIDE RECORDS SUMMARY | 2024-03-23 12:40 | XMS_ITS | Encounter Summary ---
Author Organization [facility] Address [address] [place] [address] Care Team Providers Care Fixture Designer Name Role Phone Lizbet Zhang Zoey EVENT SPECIALIST Primary Care Provider [phone] Encounter Details Date Type Department Care Team (Late st Contact Info) Description 12/15/2015 Results Only [facility] [phone] Sandra Ricci MD [address] [place] [phone] Social History Tobacco Use Types Packs/Day [...] Sophia Lopez RN documented in this encounter Plan of Treatment [...] ? MILKA MENDIETA ? Accession #: ? [id number] : ? 1940 (Age: 75) ??F ?Collect Date: ? 12/15/2015 Location: ? [facility] ? Receive Date: ? 12/16/2015 Provider: ? SANDRA RICCI MD Copy to: ?KRISTEN LOPEZ FILLER SHREDDER ? CYTOLOGIC DIAGNOSIS: URINE, CATHETERIZATION, CYTOLOGIC EVALUATION: [...] cellular enhancement technique. ? End of Report [facility] 12/15/2015 12/16/2015 7:5 5 EDT us Sandra Ricci MD PATHOLOGY ORDERABLES Final Result [facility] [address] [place] [address] documented in this encounter Visit Diagnoses Not on filedocumented in this encounter Care Teams Fixture Designer Relationship Specialty Start Date End Date Lizbet Zhang FNP [address] [place] [address] PCP - General 02/24/13 03/13/20 documented as of this encounter
--- OUTSIDE RECORDS SUMMARY | 2024-03-23 12:40 | XMS_ITS | Encounter Summary ---
Author Organization [facility] Address [address] [place] [address] Care Team Providers Care Channel Cementer Outsole Machine Name Role Phone Lizbet Zhang Primary Care Provider [phone] Encounter Details Date Type Department Care Team (Late st Contact Info) Description 01/15/2018 Historical Results Only [facility] Radiology Results [address] [place], [place] [id number] Ella Castle MD [address] [place] [phone] Social History Tobacco Use Types Packs/Day [...] Entry Date Author Yes 08/21/2011 16:30 Sophia Kaur RN documented in this encounter Plan of Treatment Not on file documented as of this encounter Visit Diagnoses Not on filedocumented in this encounter Care Teams Channel Cementer Outsole Machine Relationship Specialty Start Date End Date Lizbet Zhang, PROJECT MANAGEMENT PROFESSOR [address] [facility] [place] [address] PCP - General 02/24/13 03/13/20 documented as of this encounter
--- OUTSIDE RECORDS SUMMARY | 2024-03-23 12:40 | XMS_ITS | Encounter Summary ---
Author Organization [facility] Address [address] [place] [address] Care Team Providers Care Field Coil Winder Name Role Phone LeathaLizbet DISPATCHER MAINTENANCE Primary Care Provider [phone] Encounter Details Date Type Department Care Team (Late st Contact Info) Description 10/17/2017 Historical Results Only [facility] Radiology Results [address] [place] [address] Molly Cui, LORETO [address] [place] [address] [place] [address] Social History Tobacco Use Types Packs/Day Years [...] NODULE NOTED ON ? MRI 09/21/17 @ [facility]. NO HX OF SMOKING ? CHEST WITH CONTRAST ??10/17/2017 11:41 AM ? Clinical History/Comments: ? R91.1 INCIDENTAL NOTE OF LUNG NODULE NOTED ON, MRI 09/21/17 @ [facility]. NO ? HX OF SMOKING ? Technique: [...] CC: ? Transcribed Date/Time: 10/17/2017 (1419) ? Gear Repair Supervisor: ? Printed Date/Time: 09/26/2018 (6382) ? PAGE 2 ? Signed Report ? Procedure Note Carl Ortega MD - 02/12/2019 EXAM: CAT SCAN/CHEST WITH CONTRAST EX. D/ (1141) CLINICAL INFORMATION: R91.1 INCIDENTAL NOTE OF LUNG NODULE NOTED ON MRI 09/21/17 @ [facility]. NO HX OF SMOKING CHEST WITH CONTRAST 10/17/2017 11:41 AM Clinical History/Comments: R91.1 INCIDENTAL NOTE OF LUNG NODULE NOTED ON, MRI 09/21/17 @ [facility].NO HX OF SMOKING Technique: Contiguous axial CT [...] Carl Ortega MD CC: Transcribed Date/Time: 10/17/2017 (1131) Gear Repair Supervisor: Printed Date/Time: 09/26/2018 (2622) PAGE 2 Signed Report us Molly Cui POWDER BLENDER AND POURER IMG CT ORDERABLES Final Re sult * (ABNORMAL) COMPLETE BLOOD COUNT WITH DIFFERENTIAL (AUTO) (10/17/2017 10:37 EDT) ABSOLUTE NEUTROPHIL COUN - [facility] 3.14 1.7 - 7.0 10e3/ul 10/17/2017 11:09 [facility] BASO # - [facility] 0.02 0.0 - 0.3 10e3/uL 10/17/2017 11:09 [facility] BASO % - [facility] 0 0 - 2 % 10/17/2017 11:09 [facility] EOS # - [facility] 0.11 0.05 - 0.5 10e3/uL 10/17/2017 11:09 [facility] EOS % - [facility] 2 0 - 5 % 10/17/2017 11:09 [facility] GRAN % - [facility] 54 40 - 80 % 10/17/2017 11:09 [facility] HEMATOCRIT - [facility] 41.7 34.0 - 47.0 % 10/17/2017 11:09 [facility] HEMOGLOBIN - [facility] 14.3 11.2 - 15.7 g/dl 10/17/2017 11:09 [facility] IG# - [facility] 0.02 0 - 0.07 e3/uL 10/17/2017 11:09 [facility] IG% - [facility] 0.3 0 - 0.9 % 10/17/2017 11:09 [facility] LYMPH # - [facility] 2.14 0.9 - 2.9 10e3/uL 10/17/2017 11:09 [facility] LYMPH% - [facility] 37 20 - 40 % 10/17/2017 11:09 [facility] MEAN CORPUSCULAR HGB - [facility] 31.4 26 - 34 pg 10/17/2017 11:09 [facility] MEAN CORPUSCULAR HGB CONC - [facility] 34.3 31 - 36 g/dL 10/17[facility]2017 [facility] CE[facility] VOLUME - [facility] 91.4 77 - 100 fl 10/17/2017 11:09 [facility] MONO # - [facility] 0.41 0.3 - 0.9 10e3/uL 10/17/2017 11[facility]09 [facility]% - [facility] 7 0 - 12 % 10/17/2017 11:09 [facility] PLATELET COUNT 118(L) 150 - 400 10e3/ul 10/17/2017 11:56 [facility] RED BLOOD COUNT - [facility] 4.56 3.8 - 5.2 10e6/ul 10/17/2017 11:09 [facility] RED CELL DISTRI WIDTH - [facility] 12.5 11.8 - 15.6 % 10/17/2017 11:09 [facility] WHITE BLOOD COUNT - [facility] 5.8 3.5 - 10.5 10e3/ul 10/17/2017 11:09 [facility] 10/17/2017 10:3 7 EDT 10/17/2017 10:37 EDT Narrative [facility] - 10/17/2017 11:56 EDT Does PT Have a Latex Allergy? YES us Molly Cui APRN HEMATOLOGY & PF4 ORDERABLE S Final Result [facility] * AFP TUMOR MARKER (10/17/2017 10:37 EDT) ALPHA-FETOPROTEIN TUMOR MARKER - [facility] 3.0 <8.1 ng/mL 10/18/2017 14:30 [facility] Comment: AFP tumor marker cannot be interpreted in females. ?? Serum AFP concentration should not be interpreted as absolute evidence for the presence or absence of malignant disease. ?? Assayed utilizing Siemens chemiluminescent technology. Values obtained by using different assay methods cannot be used interchangeably. Test Performed by: THE [address] [address] 10/17/2017 10:3 7 EDT 10/17/2017 10:37 EDT Narrative [facility] - 10/18/2017 14:30 EDT Instructions? FAX ATTENTION: VARSHA LAZO NUMBER: [id number] TEST TO BE FAXED?: ALL Does PT Have a Latex Allergy? YES Results faxed on 10/18/17 [phone] by LAB.REAGAS us Molly Cui APRN CHEMISTRY & BLOOD GAS ORDE LAYLA Final Result [facility] * (ABNORMAL) COMPREHENSIVE METABOLIC PANEL (CMP) (10/17/2017 10:36 EDT) Albumin % 4.3 3.4 - 4.9 g/dL 10/17/2017 11:07 [facility] ALKALINE PHOSPHATASE - [facility] 79 38 - 126 U/L 10/17/2017 11:07 [facility] BILIRUBIN TOTAL 0.6 0.2 - 1.3 mg/dL 10/17/2017 11:07 [facility] BUN - [facility] 15 10 - 26 mg/dL 10/17/2017 11:07 [facility] CALCIUM - [facility] 10.5 8.5 - 10.5 mg/dL 10/17/2017 11:07 [facility] Chloride 99 96 - 110 mmol/L 10/17/2017 11:07 [facility] CO2 Total 27 22 - 32 mEq/L 10/17/2017 11:07 [facility] CREATININE 0.58 0.52 - 1.04 mg/dL 10/17/2017 11:07 [facility] eGFR >60 10/17/2017 11:07 [facility] Comment: Chronic renal impairment is defined as GFR <60 Multiply result by 1.210 for patients. eGFR calculated using the IDMS-traceable MDRD Study Equation. ??(effective 02/08/2014) Anion Gap 14 0 - 18 10/17/2017 11:07 [facility] GLUCOSE - [facility] 184(H) 70 - 100 mg/dL 10/17/2017 [facility]07 [facility] Potassium 4.1 3.5 - 5.0 mEq/L 10/17/2017 11:07 [facility] Sodium 140 136 - 145 mEq/L 10/17/2017 11:07 EDT [facility] TOTAL PROTEIN - [facility] 7.4 6.2 - 8.2 gm/dL 10/17/2017 11:07 [facility] SGOT/AST - [facility] 32 14 - 36 U/L 10/17/2017 11:07 [facility] SGPT/ALT - [facility] 51 9 - 52 U/L 8 11:07 [facility] 10/17/2017 10:3 6 EDT 10/17/2017 10:36 EDT [facility] - 10/17/2017 11:07 EDT Does PT Have a Latex Allergy? YES us Molly Cui APRN CHEMISTRY & BLOOD GAS ORDE RABLES Final Result [facility] * PROTIME (10/17/2017 10:36 EDT) [facility] PROTHROMBIN TIME - [facility] 10.7 9.5 - 13.4 SECONDS 10/17/2017 [facility] 10/17/2017 10:3 6 EDT 10/17/2017 10:36 EDT [facility] - 10/03/2018 8:42 EDT Does PT Have a Latex Allergy? YES us Molly Cui APRN HEMATOLOGY & PF4 ORDERABLE S Final Result [facility] * PROTIME (10/17/2017 10:36 EDT) [facility] INR [facility] 1.0 0.9 - 1.2 10/17/2017 11:09 EDT [facility] Comment: Low intensity INR: 2.0-3.0 High intensity INR: Consult Coag Dept. 10/17/2017 10:3 6 EDT 10/17/2017 10:36 EDT Narrative [facility] - 10/03/2018 8:42 EDT Does PT Have a Latex Allergy? YES us Molly Cui POWDER BLENDER AND POURER HEMATOLOGY & PF4 ORDERABLE S Final Result [facility] documented in this encounter Visit Diagnoses Not on filedocumented in this encounter Care Teams Field Coil Winder Relationship Specialty Start Date End Date Lizbet Zhang FNP [address] [place] [address] PCP - General 02/24/13 03/13/20 documented as of this encounter
--- OUTSIDE RECORDS SUMMARY | 2024-03-23 12:40 | XMS_ITS | Encounter Summary ---
Author Organization [facility] Address [address] [place] [address] Care Team Providers Care Special Services Director Name Role Phone Unknown, Provider Primary Care Provider Agustin Anna MD Primary Care Provider [phone] Kayleigh Peña Primary Care Provider [phone] Agustin Ramires MD Primary Care Provider [phone] Lizbet ZhangP Primary Care Provider [phone] Encounter Details Date Type Department Care Team (Late st Contact Info) Description 07/17/2010 Historical Results Only [facility] - Main [address] [address] Leland Boykin MD Social History Tobacco Use [...] (07/17/2010) 07/17/2010 07/18/2010 9:3 2 EDT Narrative [facility] - 07/21/2010 15:57 EDT ----- ------- Name: MILKA MENDIETA ?: 42 ?Age/Sex: 78/F ?Unit#: [id number] ? Loc: LAB.OPX ? Status: REG REF ?? Reg Date: 07/17/10 ? Pt.Phone Number: ? ----- ------- Specimen: [id number] ? STATUS: SOUT ?Spec Date:07/17/10 ? Physician Copies: ?Leland oBykin MD ?? Tissues: ? Urine (CLEAN CATCH) ? CPT: 41753 ?? Units: ??1 ----- ------- ?? NON ELECTRONICS REPAIR TECHNICIAN CYTOLOGY DIAGNOSIS Urine,voided: ??Benign urothelial cells. ??Background [...] diagnosis. Test Performed by [facility], [address] [place] [address] [place] [address] Jewel Waxer: Namrata Childs MD PHD ----- ------- us Leland Boykin MD PATHOLOGY ORDERABLES Final Resul t [facility] documented in this encounter Visit Diagnoses Not on filedocumented in this encounter Care Teams Special Services Director Relationship Specialty Start Date End Date Unknown, Provider, PCP - General 05/17/10 02/07/11 Agustin Ramires MD [address] [address] [place] [phone] PCP - General 02/08/11 05/15/11 Kayleigh Peña PA [address] [facility] [address] [place] [address] PCP - General 05/16/11 08/19/11 Agustin Ramires MD [address] [address] [place] [address] PCP - General 08/20/11 02/23/13 Lizbet Zhang FNP [address] [facility] [place] [id number] PCP - General 02/24/13 03/13/20 documented as of this encounter
--- OUTSIDE RECORDS SUMMARY | 2024-03-23 12:40 | XMS_ITS | Encounter Summary ---
Author Organization [facility] Address [address] [place] [address] Care Team Providers Care Custom Ski Maker Name Role Phone Unknown, Provider Primary Care Provider Agustin Anna MD Primary Care Provider [phone] Kayleigh Peña Primary Care Provider [phone] Agustin Ramires MD Primary Care Provider [phone] Lizbet ZhangP Primary Care Provider [phone] Encounter Details Date Type Department Care Team (Late st Contact Info) Description 09/19/2010 Historical Results Only [facility] - Main [address] [address] Leland Boykin MD Social History Tobacco Use [...] (09/19/2010) 09/19/2010 09/20/2010 9:2 0 EDT Narrative [facility] - 09/21/2010 10:55 EDT ----- ------- Name: MILKA MENDIETA ?: 42 ?Age/Sex: 78/F ?Unit#: [id number] ? Loc: LAB.OPX ? Status: REG REF ?? Reg Date: 09/20/10 ? Pt.Phone Number: ? ----- ------- Specimen: [id number] ? STATUS: SOUT ?Spec Date:09/19/10 ? Physician Copies: ?Leland Boykin MD ?? Tissues: ? Urine (bladder) ? CPT: 20780 ?? Units: ??1 ----- ------- ?? NON PERSONAL CARE AID CYTOLOGY DIAGNOSIS Urine,bladder: Benign urothelial cells. ----- ------- ? SPECIMEN DESCRIPTION ? 100ml clear yellow urine, 30ml proc, 1tp Signed ____(signature on file)____ Anjel De La Torre M.D. 09/21/10 ?? By the signature above, the attending physician certifies that he/she has personally conducted a gross and/or microscopic examination of the described specimens and rendered or confirmed the above diagnosis. Test Performed by [facility], [address] [facility] [address] Commercial Door Installer: Namrata Childs MD PHD ----- ------- us Leland Boykin MD PATHOLOGY ORDERABLES Final Resul t [facility] documented in this encounter Visit Diagnoses Not on filedocumented in this encounter Care Teams Custom Ski Maker Relationship Specialty Start Date End Date Unknown, Provider, PCP - General 05/17/10 02/07/11 Agustin Ramires MD [address] [place] [phone] PCP - General 02/08/11 05/15/11 Kayleigh Peña PA [address] [place] [address] PCP - General 05/16/11 08/19/11 Agustin Ramires MD [address] [place] [phone] PCP - General 08/20/11 02/23/13 Lizbet Zhang FNP [address] [facility] [place] [id number] PCP - General 02/24/13 03/13/20 documented as of this encounter
--- OUTSIDE RECORDS SUMMARY | 2024-03-23 12:40 | XMS_ITS | Encounter Summary ---
Author Organization [facility] Address [address] [place] [address] Care Team Providers Care Instrumentation Manager Name Role Phone Kayleigh Peña Primary Care Provider [phone] Reason for Visit * Reason Comments Other incomplete empyting Encounter Details Date Type Department Care Team (Latest Contact Info) Description 05/17/2011 11:00 EST Office Visit [facility] Pelvic Medicine and Reconstructive Surgery - Medical Office [facility] [address] [place] [address] Tim Molina MD [address] [place] [address] Female bladder prolapse (Primary Dx); Rectocele; [...] MD - 05/21/2011 0709 EST [facility] [address] [place], [place] [id number] Telephone Toll-Free PROGRESS/FOLLOWUP NOTE - 05/17/2011 HISTORY [...] Molina MD - Tim Molina MD - [facility] Job ID: SM Doc ID: [id number] Ext Doc ID: [id number] cc: TOPHER Mackey MD * Tim Molina [...] History Procedure Date ??? Appendectomy ??? Cholecystectomy skylar, Dr. Tran ??? Ru and bso 88 [...] mg by mouth daily as needed. ??? [place]-3 Fatty Acids-Vitamin E (FISH OIL) 1,000 mg [...] MD * Tim Molina MD - 05/18/2011 9945 EST Dictated. Past Medical history, past surgical [...] URINE DIPSTICK (05/17/2011 11:35 EST) Color YELLOW [facility] Clarity, UA Clear [facility] Glucose Neg Neg [facility] Bilirubin Neg Neg [facility] Ketones Neg Neg [facility] Specific [place] 1.010 1.001 - 1.035 [facility] Blood Neg Neg [facility] pH 7.5 4.6 - 8.0 [facility] Protein Neg Neg [facility] Urobilinogen 0.2 0.2 - 1.0 E.U./dl [facility] Nitrite Neg Neg [facility] Leuk Esterase Neg Neg [facility] fountain helper ID [id number] [facility] [place] Urine specimen (specimen) 05/17/2011 11:35 EST 05/17/2011 11:44 EST Tim Molina MD POINT OF CARE TEST ORDERABL ES Final Result [facility] [address] [place] [address] documented in this encounter Visit Diagnoses Diagnosis Female bladder prolapse- Primary Cystocele, midline Rectocele Mixed incontinence urge and stress Mixed incontinence urge and stress (male)(female) documented in this encounter Care Teams Instrumentation Manager Relationship Specialty Start Date End Date Kayleigh Peña PA [address] [place] [address] PCP - General 05/16/11 08/19/11 documented as of this encounter
--- OUTSIDE RECORDS SUMMARY | 2024-03-23 12:40 | XMS_ITS | Encounter Summary ---
Author Organization [facility] Address [address] [place] [address] Care Team Providers Care Gelatin Powder Mixer Name Role Phone Agustin Ramires MD Primary Care Provider [phone] Encounter Details Date Type Department Care Team (Late st Contact Info) Description 08/20/2011 Pre-Procedure Orders Encounter [facility] Pelvic Medicine and Reconstructive Surgery - Medical Office [facility] [address] [place] [address] Tim Molina MD [address] [place] [phone] Social History Tobacco Use Types Packs/Day Years [...] on filedocumented in this encounter Care Teams Gelatin Powder Mixer Relationship Specialty Start Date End Date Agustin Ramires MD [address] [place] [address],[facility] [address] [place] [address] PCP - General 08/20/11 02/23/13 documented as of this encounter
--- OUTSIDE RECORDS SUMMARY | 2024-03-23 12:40 | XMS_ITS | Encounter Summary ---
Author Organization [facility] Address [address] [place] [address] Care Team Providers Care It Applications Manager Name Role Phone Salome Mcarthur GASOLINE DRAGLINE OPERATOR Primary Care Provider [phone] Encounter Details Date Type Department Care Team (Latest Contact Info) Description 09/06/2022 Plan of Care Documentation [address] [id number] Social History Tobacco Use Types Packs/Day Years [...] today with positive dizziness with bilateral Hallpike [place] tests. However, nystagmus not noted. She does have an impaired oculomotor evaluation, but no signs of dizziness with testing. Therefore, her dizziness is likely not related tothe oculomotor testing. Because she was so sensitive to bilateral Hallpike Scott, she has bilateral posterior canalithesis. She has [...] for 6 weeks. Therapy Treatment to include: 67441 - Therapeutic Exercise, 04255 - Neuromuscular Re-education, 77471 - Canalith Repositioning and 43486 - Therapeutic Activity Recommended Consults: None currently Development of Plan of Care: Patient participated in development of plan of care today. Plan for next visit: Review the right Amanda for independence. Assess response to current exercises,and assess Hallpike-[place] again. If still has vertigo, may attempt [...] filedocumented in this encounter Care Teams It Applications Manager Relationship Specialty Start Date End Date Salome Mcarthur GASOLINE DRAGLINE OPERATOR [address] [place] [address] PCP - General 03/14/20 documented as of this encounter
--- OUTSIDE RECORDS SUMMARY | 2024-03-23 12:40 | XMS_ITS | Encounter Summary ---
Author Organization [facility] Address [address] [place] [address] Care Team Providers Care Sweatband Perforator Name Role Phone Salmoe Mcarthur PHOTOGRAPHIC RESTORER Primary Care Provider [phone] Encounter Details Date Type Department Care Team (Late st Contact Info) Description 10/27/2020 Lab Requisition [facility] [place] Pathology [facility] Laboratory Medicine - [address] [id number] Outr Resulting Lab, Provider Social History Tobacco [...] Priority Date/Time Associated Diagnosis Comments ZZCOVID-19 TEST [facility] PCR Today 10/27/2020 10:45 EDT COVID-19 TESTING Routine 10/27/2020 10:4 5 EDT documented in this encounter Results * COVID-19 TEST [facility] PCR (10/27/2020 10:45 EDT) Swab ENTIRE NASOPHARYNX / Unknown 10/27/2020 10:45 EDT 10/28/2020 15:54 EDT us Provider Outr Resulting Lab MICROBIOLOGY - GENER AL ORDERABLES Final Result [facility] [address] [place] [address] * COVID-19 TESTING (10/27/2020 10:45 EDT) COVID-19 rt-PCR Result Negative Negative 10/29/2020 12:56 EDT [facility] Comment: This test [...] performed using the damaso SARS-CoV-2 assay ([employer] on the Damaso 6800 System Performing Lab Damaso 6800 [facility] 10/29/2020 12:56 EDT [facility] Swab 10/27/2020 10:4 5 EDT 10/28/2020 15:54 EDT us Provider Outr Resulting Lab MICROBIOLOGY - GENER AL ORDERABLES Final Result [facility] [address] [place] [address] documented in this encounter Visit Diagnoses Not on filedocumented in this encounter Care Teams Sweatband Perforator Relationship Specialty Start Date End Date Salome Mcarthur, PHOTOGRAPHIC RESTORER [address] [place] [address] PCP - General 03/14/20 documented as of this encounter
--- OUTSIDE RECORDS SUMMARY | 2024-03-23 12:40 | XMS_ITS | Encounter Summary ---
Author Organization [facility] Address [address] [place] [address] Care Team Providers Care Flatwork Washer Name Role Phone LeathaLizbet CLINICAL LIAISON Primary Care Provider [phone] Encounter Details Date Type Department Care Team (Latest Contact Info) Description 12/03/2013 12:35 EDT - 12/03/2013 23:59 EDT Hospital Encounter [facility] [address] [place] [address] Unknown, Provider, MD Discharge Disposition: Home or Self Care [...] Sophia Lopez RN documented in this encounter Medications at Time of Discharge acetaminophen (TYLENOL) 650 mg tablet Take 1 Tab by mouth every 6 hours as needed for Pain. 08/22/2011 BUTALBITAL/ASPIR IN/CAFFEINE (FIORINAL ORAL) Take by mouth 2 times [...] 1 Tab by mouth daily before breakfast. [place]-3 Fatty Acids-Vitamin E (FISH OIL) 1,000 mg Cap Take by mouth daily. amitriptyline (ELAVIL) 100 mg tablet Take 1 Tab by mouth at bedtime. 90 Tab 4 06/06/2009 4 cephALEXin (KEFLEX) 500 mg capsule Take 1 Cap by mouth 4 times daily. 40 Cap 0 08/27/2011 0 fluconazole (DIFLUCAN) 150 mg tablet Take 1 Tab by mouth daily. Take first dose on day 5 of ABX therapy, second dose on day 8. 2 Tab 0 08/27/2011 0 gabapentin (NEURONTIN) 300 mg capsule Take 1 Cap by mouth 3 times daily. 270 Cap 4 06/06/2009 4 documented as of this encounter Discharge Disposition Disposition Code Departure Means Destination Home or Self [facility] documented in this encounter Plan of Treatment Not on file documented as of this encounter Visit Diagnoses Not on filedocumented in this encounter Care Teams Flatwork Washer Relationship Specialty Start Date End Date Lizbet Zhang FNP [address] [place] [address] PCP - General 02/24/13 03/13/20 documented as of this encounter
--- OUTSIDE RECORDS SUMMARY | 2024-03-23 12:40 | XMS_ITS | Encounter Summary ---
Author Organization [facility] Address [address] [place] [address] Care Team Providers Care Director Medical Writing Name Role Phone Salome Mcarthur ABSTRACTER Primary Care Provider [phone] Reason for Visit * Reason Onset Date Comments New/Evolving Symptoms 01/05/2022 Encounter Details Date Type Department Care Team (Late st Contact Info) Description 01/05/2022 Telephone [facility] - [facility] Dermatology [address] [place] [address], [place] [address] Brittanie Ponce MD [address] [facility], [facility] [address] [place] [address] New/Evolving Symptoms Social History Tobacco [...] Sophia Lopez, RN documented in this encounter Miscellaneous Notes * [...] filedocumented in this encounter Care Teams Director Medical Writing Relationship Specialty Start Date End Date Salome Mcarthur NP [address] [place] [address] PCP - General 03/14/20 documented as of this encounter
--- OUTSIDE RECORDS SUMMARY | 2024-03-23 12:40 | XMS_ITS | Encounter Summary ---
Author Organization [facility] Address [address] [place] [address] Care Team Providers Care Orthopedics Pediatric Physician Name Role Phone LeathaLizbet ECHOCARDIOGRAPHY RADIOLOGY TECHNOLOGIST Primary Care Provider [phone] Encounter Details Date Type Department Care Team (Latest Contact Info) Description 12/15/2015 9:36 EDT - 12/15/2015 23:59 EDT Hospital Encounter [address] [address] Unknown, Provider, MD Discharge Disposition: Home or [...] 1 Tab by mouth daily before breakfast. [place]-3 Fatty Acids-Vitamin E (FISH OIL) 1,000 mg [...] on filedocumented in this encounter Care Teams Orthopedics Pediatric Physician Relationship Specialty Start Date End Date Lizbet Zhang FNP [facility] [place] [address] PCP - General 02/24/13 03/13/20 documented as of this encounter
--- OUTSIDE RECORDS SUMMARY | 2024-03-23 12:40 | XMS_ITS | Encounter Summary ---
Author Organization [facility] Address [address] [place] [address] Care Team Providers Care Rod Drawer Name Role Phone Lizbet Zhang EDUCATION DEAN Primary Care Provider [phone] Salome Mcarthur PICCOLOIST Primary Care Provider [phone] Encounter Details Date Type Department Care Team (Late st Contact Info) Description 08/19/2019 Lab Requisition [facility] Pathology & Laboratory Medicine - [address] [id number] Outr Resulting Lab, Provider Social History Tobacco [...] Priority Date/Time Associated Diagnosis Comments ZZCOVID-19 TEST [facility] PCR Today 08/19/2019 21:00 EDT COVID-19 TESTING Routine 08/19/2019 21:0 0 EDT documented in this encounter Results * COVID-19 TEST [facility] PCR (08/19/2019 21:00 EDT) Swab ENTIRE NASOPHARYNX / Unknown 08/19/2019 21:00 EDT 08/19/2019 23:27 EDT us Provider Outr Resulting Lab MICROBIOLOGY - GENER AL ORDERABLES Final Result Performing Organization Address City/[facility]/ZIP Co de Phone Number [facility] [address] [place] [id number] * COVID-19 TESTING (08/19/2019 21:00 EDT) COVID-19 rt-PCR Result Negative Negative 08/20/2019 2:[address] [facility] Comment: This test has [...] history, and epidemiological information. Performed on the [employer] Fusion instrument Performing Lab [facility] Lab 08/20/2019 2:[address] [facility] Swab ENTIRE NASOPHARYNX / Unknown 08/19/2019 21:00 EDT 08/19/2019 23:27 EDT us Provider Outr Resulting Lab MICROBIOLOGY - GENER AL ORDERABLES Final Result [facility] [address] [place] [address] documented in this encounter Visit Diagnoses Not on filedocumented in this encounter Care Teams Rod Drawer Relationship Specialty Start Date End Date Lizbet Zhang FNP [address] [place] [address] PCP - General 02/24/13 03/13/20 Salome Mcarthur, JEIMY [address] [place] [address] PCP - General 03/14/20 documented as of this encounter
--- OUTSIDE RECORDS SUMMARY | 2024-03-23 12:40 | XMS_ITS | Encounter Summary ---
Author Organization [facility] Address [address] [place] [address] Care Team Providers Care Ecmo Specialist Name Role Phone Salome Mcarthur BLADE BONER Primary Care Provider [phone] Encounter Details Date Type Department Care Team (Latest Contact Info) Description 09/05/2023 Plan of Care Documentation [address] [id number] Social History Tobacco Use Types Packs/Day Years [...] dizziness when performing the left and right [place]. However, did not show nystagmus. She completed the Amanda for left ear posterior canalithesis one time, due to the left Hallpike-Scott having greater dizziness. However, it should be [...] for 4 weeks. Therapy Treatment to include: 36048 - Therapeutic Exercise, 30041 - Neuromuscular Re-education, 65735 - Canalith Repositioning, and 19523 - Therapeutic Activity Recommended Consults: None currently. [...] on filedocumented in this encounter Care Teams Ecmo Specialist Relationship Specialty Start Date End Date Salome Mcarthur NP [address] [place] [address] PCP - General 03/14/20 documented as of this encounter
--- OUTSIDE RECORDS SUMMARY | 2024-03-23 12:40 | XMS_ITS | Encounter Summary ---
Author Organization [facility] Address [address] [place] [address] Care Team Providers Care Field Crop Farming Supervisor Name Role Phone LeathaLizbet TEXTILE SLITTING MACHINE OPERATOR Primary Care Provider [phone] Encounter Details Date Type Department Care Team (Latest Contact Info) Description 10/17/2017 12:36 EDT - 10/17/2017 23:59 EDT Hospital Encounter [facility] [address] [place] [address] Unknown, Provider, MD Discharge Disposition: Home or [...] 1 Tab by mouth daily before breakfast. Ranger-3 Fatty Acids-Vitamin E (FISH OIL) 1,000 mg [...] Code Departure Means Destination Home or Self [facility] documented in this encounter Plan of Treatment Not on file documented as of this encounter Visit Diagnoses Not on filedocumented in this encounter Care Teams Field Crop Farming Supervisor Relationship Specialty Start Date End Date Lizbet Zhang FNP [address] [place] [address] PCP - General 02/24/13 03/13/20 documented as of this encounter
--- OUTSIDE RECORDS SUMMARY | 2024-03-23 12:40 | XMS_ITS | Encounter Summary ---
Author Organization [facility] Address [address] [place] [address] Care Team Providers Care Financial Institution Vice President Name Role Phone Salome Mcarthur TUBE FILLER Primary Care Provider [phone] Encounter Details Date Type Department Care Team (Latest Contact Info) Description 01/19/2022 Plan of Care Documentation [address] [id number] Social History Tobacco Use Types Packs/Day Years [...] documented in this encounter Progress Notes * Mallory Gallagher, [...] to 3 visits Therapy Treatment to include: 83529 - Hot Cold Pack, 27964 - Therapeutic Exercise, 02333 - Neuromuscular Re-education, 23336 - Manual Therapy, 02167 - Canalith Repositioning and 89591 - Therapeutic Activity Recommended Consults: None Development [...] on filedocumented in this encounter Care Teams Financial Institution Vice President Relationship Specialty Start Date End Date Salome Mcarthur, TUBE FILLER [address] [place] [address] PCP - General 03/14/20 documented as of this encounter
--- OUTSIDE RECORDS SUMMARY | 2024-03-23 12:40 | XMS_ITS | Encounter Summary ---
Author Organization [facility] Address [address] [place] [address] Care Team Providers Care Consulting Database Administrator Name Role Phone Kayleigh Peña Primary Care Provider [phone] Reason for Visit * Reason Comments Other URO Encounter Details Date Type Department Care Team (Latest Contact Info) Description 07/03/2011 11:00 EDT Office Visit [facility] Pelvic Medicine and Reconstructive Surgery - Medical Office [facility] [address] [place] [address] Tim Molina MD [address] [place] [phone] Female bladder prolapse (Primary Dx); Rectocele; [...] encounter Miscellaneous Notes * Scanned Note-Null - FAMILY LAW LEGAL ASSISTANT, SCAN 2 - 07/09/2011 1136 EDT documented in this encounter Plan of Treatment Not on file documented as of this encounter Procedures Procedure Name Priority Date/Time Associated Diagnosis Comments POCT URINE DIPSTICK, CLINITEK Routine 07/03/2011 10:26 EDT Female bladder prolapse documented in this encounter Results * POCT URINE DIPSTICK (07/03/2011 10:26 EDT) Color YELLOW [facility] Clarity, UA Clear [facility] Glucose Neg Neg [facility] Bilirubin Neg Neg [facility] Ketones Neg Neg [facility] Specific [place] 1.010 1.001 - 1.035 [facility] Blood Neg Neg [facility] pH 5.0 4.6 - 8.0 [facility] Protein Neg Neg [facility] Urobilinogen 0.2 0.2 - 1.0 E.U./dl [facility] Nitrite Neg Neg [facility] Leuk Esterase Neg Neg [facility] licensed massage practitioner ID [id number] [facility] Comment:Test performed at [facility] Continence [place] Urine specimen (specimen) 07/03/2011 10:26 EDT 07/03/2011 10:35 EDT us Tim Molina MD POINT OF CARE TEST ORDERABL ES Final Result [facility] [address] [place] [address] documented in this encounter Visit Diagnoses Diagnosis [...] 07/02 documented in this encounter Care Teams Consulting Database Administrator Relationship Specialty Start Date End Date Kayleigh Peña PA [address] [facility] [address] [place] [address] PCP - General 05/16/11 08/19/11 documented as of this encounter
--- OUTSIDE RECORDS SUMMARY | 2024-03-23 12:40 | XMS_ITS | Encounter Summary ---
Author Organization [facility] Address [address] [place] [address] Care Team Providers Care Pearl Diver Name Role Phone Salome Mcarthur CLEANERS Primary Care Provider [phone] Reason for Visit * Reason Comments Wound Check Encounter Details Date Type Department Care Team (Late st Contact Info) Description 03/22/2020 10:[address] [facility] [address] [facility], [place] [address] Nurse, [facility] Encounter for post surgical wound check [...] documented in this encounter Progress Notes * Germán Franks [...] fibrin Drainage: scant serosanguineous Graft site: N/A Chunky site: N/A Flap site: N/A PLAN: Wound cleaned: chlorohexidine Dressing: vaseline and dry sterile dressing applied Culture obtained: No MD/PAULA consulted No FOLLOW UP Patient advised to return to follow-up care as planned or sooner if concern Wound care instructions given to patient GERMÁN FRANKS RN 11:22 03/22/2020 documented in this encounter Plan of Treatment Not on file documented as of this encounter Visit Diagnoses Diagnosis Encounter for post surgical wound check- Primary documented in this encounter Care Teams Pearl Diver Relationship Specialty Start Date End Date Salome Mcarthur NP [address] [place] [address] PCP - General 03/14/20 documented as of this encounter
--- OUTSIDE RECORDS SUMMARY | 2024-03-23 12:40 | XMS_ITS | Encounter Summary ---
Author Organization [facility] Address [address] [place] [address] Care Team Providers Care Hearing Aid Mechanic Name Role Phone Lizbet Zhang Primary Care Provider [phone] Encounter Details Date Type Department Care Team (Late st Contact Info) Description 01/19/2014 Orders Only [facility] Infectious Disease - [address] [id number] Pino Oleary, TRISHA Social History Tobacco Use [...] Answer Entry Date Author Yes 08/21/2011 16:30 KENNETHT Sophia Lopez, RN documented in this encounter Plan of Treatment Not on file documented as of this encounter Visit Diagnoses Not on filedocumented in this encounter Care Teams Hearing Aid Mechanic Relationship Specialty Start Date End Date Lizbet Zhang FNP [address] [place], [place] [address] PCP - General 02/24/13 03/13/20 documented as of this encounter
--- OUTSIDE RECORDS SUMMARY | 2024-03-23 12:40 | XMS_ITS | Encounter Summary ---
Author Organization [facility] Address [address] [place] [address] Care Team Providers Care Blade Bender Furnace Tender Name Role Phone LeathaLizbet MAKING MACHINE CATCHER Primary Care Provider [phone] Reason for Visit * Reason Comments New Patient Visit Encounter Details Date Type Department Care Team (Late st Contact Info) Description 02/24/2013 12:45 EST Office Visit [facility] Infectious Disease - [address] [id number] Nilo Baltazar MD [address] [place] [address], [address] [place] [address] Nubia Krause DO Candidiasis of [...] 08/14/2011 1338 EDT documented in this encounter Mental Status * Because of a physical, mental, or emotional condition, do you have serious difficulty concentrating, remembering, or making decisions? 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 Bladder CA tumor removal 2007 Soc Hx: Lives in [place]. Denies smoking, drinking alcohol. Fam Hx: Cirrhosis [...] would be beneficial to get evaluated by COMPATIBILITY TEST ENGINEER, or if PCP could perform pelvic exam [...] would like to have those drawn at [facility] on her next PCP visit): HgA1C (if not done), CBC with differential, Immunoglobulins, HIV Ab 3. COMPATIBILITY TEST ENGINEER eval for vaginal dryness/pelvic exam 4. F/u with urology for incontinence issues 5. F/u in ID clinic as needed Nubia Krause DO 02/25/2013 13:24 Attestation statement: I discussed the patient with the resident/fellow at the time of the visit. Iagree with the findings and the plan of care documented in the resident's/fellow's note. Giovanny documented in this encounter Plan of Treatment Not on file documented as of this encounter Visit Diagnoses Diagnosis Candidiasis of vulva and vagina- Primary Candidiasis of mouth documented in this encounter Care Teams Blade Bender Furnace Tender Relationship Specialty Start Date End Date Lizbet Zhang, INDIRA [facility] [place] [address] PCP - General 02/24/13 03/13/20 documented as of this encounter
--- OUTSIDE RECORDS SUMMARY | 2024-03-23 12:40 | XMS_ITS | Encounter Summary ---
Author Organization [facility] Address [address] [place] [address] Care Team Providers Care Claim Representative Name Role Phone Agustin Ramires MD Primary Care Provider [phone] Encounter Details Date Type Department Care Team (Latest Contact Info) Description 08/21/2011 6:58 EDT - 08/22/2011 15:08 EDT Hospital Encounter [facility] [address], [place] [id number] Tim Molina MD [address] [place] [phone] Discharge Disposition: Home or Self Care [...] Date Author Yes 08/21/2011 16:30 EDT Sophia Wheeler RN documented in this encounter Discharge Summaries * Sandra Irwin [...] MD Joseph Brock Discharge Summary Completed: yes Cosigned by Tim Molina MD at 08/31/2011 9:42 EDT documented in this encounter Discharge Instructions * Discharge Instructions* Sandra Irwin PA - 08/22/2011 12:55 EDT Diet: Resume [...] 1 Tab by mouth daily before breakfast. O'Brien-3 Fatty Acids-Vitamin E (FISH OIL) 1,000 mg Cap Take by mouth daily. amitriptyline (ELAVIL) 100 mg tablet Take 1 Tab by mouth at bedtime. 90 Tab 4 06/06/2009 4 cephALEXin (KEFLEX) 500 mg capsule Take 1 Cap by mouth 2 times daily for 3 days. 6 Cap 0 08/22/2011 2 gabapentin (NEURONTIN) 300 mg capsule Take 1 Cap by mouth 3 times daily. 270 Cap 4 06/06/2009 4 HYDROmorphone (DILAUDID) 2 mg tablet Take 1-2 Tabs by mouth every 4 hours as needed for Pain. 15 Tab 0 08/22/2011 2 documented as of this encounter Ordered Prescriptions Prescription Sig Dispense Quantity Refills Last Filled Start Date End Date docusate sodium (COLACE) 100 mg capsule Take [...] spiritual, emotional, legal, etc.): Prescription coverage through [facility] ([facility]). Denies needs for post-acute services. Patient may go home with Singer. Spouse feels comfortable and has been a diver pumper for the patient In the past when she had a Singer. Spouse will provide transportation home and for post-acute needs. Case Management Actions (completed and planned): DCP: home with spouse. No post-acute needs identified. Andreia Faustin RN, CCM #[id number] * Sandra Irwin PA - 08/22/2011 0857 EDT [facility] Urologic Surgery Daily Progress Note [...] tachycardic, Dr. Hernandez will be consulted 1539, L Dc consulted about need for further Rx of [...] DOS fexofenadine (JESÚS) 60 mg tablet Yes O'Brien-3 Fatty Acids-Vitamin E (FISH OIL) 1,000 mg [...] documented in this encounter H&P Notes * EXECUTIVE SALES MANAGER, SCAN 2 - 08/29/2011 1153 EDT * [...] are documented below TOPHER Pete 08/21/2011 8:39 Cosigned by Tim Molina MD at 08/21/2011 9:12 EDT documented in this encounter Procedure Notes * EXECUTIVE SALES MANAGER, SCAN 2 - 08/24/2011 2202 EDTAssociated Order(s): ECG REPORT - SCANNED documented in this encounter Nursing Notes * EXECUTIVE SALES MANAGER, SCAN 2 - 08/24/2011 2202 EDT documented in this encounter OR Notes * OR PreOp - EXECUTIVE SALES MANAGER, SCAN 2 - 08/24/2011 2202 EDT * OR Surgeon - Tim Molina MD - 08/21/2011 1525 EDT OPERATIVE REPORT SERVICE DATE: 08/21/2011 PREOPERATIVE DIAGNOSIS: Stress urinary incontinence with intrinsic sphincteric deficiency, cystocele and rectocele (grade 2). POSTOPERATIVE DIAGNOSIS: Stress urinary incontinence with intrinsic sphincteric deficiency, cystocele and rectocele (grade 2). PROCEDURE: Pubovaginal sling with autologous rectus fascia, cystocele repair, rectocele repair and cystoscopy. SURGEON: Tim Molina MD RACE STEWARD: Montrell Barron SA FINDINGS: After cystocele repair was completed, cystoscopy showed good efflux of urine from each ureteral orifice. After Stamey needle passage there was no evidence of needle entry into the bladder or urethra on cystoscopy. ANESTHESIA: General. ESTIMATED BLOOD LOSS: Less than 100 mL. FLUIDS: Approximately 1 L of crystalloid. SPECIMENS: None. DRAINS: A 16-Korean Singer catheter, and an Estrace-coated vaginal packing. [...] in modified dorsal lithotomy position in Alex stirrups. The lower abdomen and vaginal introitus were [...] weighted vaginal speculum was placed and a [place] retractor with retracting hooks was placed for adequate exposure to the vagina. At this point, the anterior vaginal wall was grasped between Allis clamps. A 16-Korean Singer catheter was placed into the bladder. [...] then tied across the midline over the clinical nursing assistant's finger being used as a spacer, [...] / Tim Farrell. MD Jesse cs Confirmation: [id number] Dictation ID: [id number] cc:Agustin Boykin MD * Anesthesia Procedure Notes - EXECUTIVE SALES MANAGER, SCAN 2 - 08/21/2011 1338 EDT * OR PreOp - EXECUTIVE SALES MANAGER, SCAN 2 - 08/21/2011 1326 EDT * Anesthesia Preprocedure Evaluation - EXECUTIVE SALES MANAGER, SCAN 2 - 08/21/2011 1001 EDT documented in this encounter Miscellaneous Notes * Scanned Note-Null - EXECUTIVE SALES MANAGER, SCAN 2 - 08/24/20112201 EDT * Scanned Note-Null - EXECUTIVE SALES MANAGER, SCAN 2 - 08/24/20112201 EDT * Plan of Care - Romy [...] Care - Silvia Gr RN - 08/22/2011 8624 EDT Problem: PAIN Goal: Patient???s pain/discomfort is manageable/tolerable Data: Patient c/o pain in abd and vagina 06/15. Action: Medicated with PRN tylenol and dilaudid. Response: Patient is now resting comfortably, will continue to monitor. Silvia Gr RN 08/22/2011 3:43 * Plan of Care - Jewels Wheeler RN - 08/21/2011 3378 EDT Problem: OXYGENATION/REPIRATORY FUNCTION Goal: Patient will achieve/maintain baseline respiratory rate/effort Outcome: Ongoing Active Multi-Disciplinary problems: FALL RISK [675290] (08/21/11) HEMODYNAMIC STATUS [[id number]] (08/21/11) OXYGENATION/REPIRATORY FUNCTION [625885] (08/21/11) PAIN [217769] (08/21/11) MOBILITY [477959] (08/21/11) KNOWLEDGE DEFICIT,EDUCATION,DISCHARGE PLAN [261918] (08/21/11) Data: Patient arrived on M6, minimal pain (3/10). A&Ox3. 3L NC, O2sat of 96%. Singer draining clear blue-tinted urine. Abd incision CDI, Small to moderate vaginal bleeding. Action: q4h VS, ambulated patient, administered Dilaudid PRN for pain. Response: Patient resting comfortably, tolerated short ambulation well. 1/10 pain. Continue to monitor. JEWELS WHEELER RN 08/21/2011 22:51 * Anesthesia Post-Eval - Mehreen Burch - 08/21/2011 1616 EDT Post Anesthesia Evaluation [...] Resp: 11 (08/21/11 1600), SpO2: 97 % (08/21/11 1600),Numeric Pain Level (Scale 1-10): 2 Milka Corbett [...] MD - 08/21/2011 1315 EDT [facility] Urologic Surgery Brief Post-Op Note [...] EDT) 08/24/2011 22:0 2 EDT Narrative Transcriptions EXECUTIVE SALES MANAGER, SCAN 2 - 08/24/2011 22:02 EDT us Scan 2 Extension Service Supervisor PROCEDURE/MINOR SURGICAL OR DERABLES Final Result * (ABNORMAL) GLUCOSE, GLUCOMETER (08/22/2011 11:44 EDT) Glucose, Fingerstick 162(H) 70 - 100 mg/dl [facility] [employer] [place] [id number] [facility] Comment:Test Performed by [facility] 08/22/2011 11:4 4 EDT 08/22/2011 11:45 EDT us Tim Molina MD CHEMISTRY & BLOOD GAS ORDER JOEY Final Result Performing Organization Address [facility] Co de Phone Number [facility] [address] [place] [address] * (ABNORMAL) GLUCOSE, GLUCOMETER (08/22/2011 7:11 EDT) Glucose, Fingerstick 137(H) 70 - 100 mg/dl [facility] [employer] ID [id number] [facility] Comment:Test Performed by [facility] 08/22/2011 7:11 EDT 08/22/2011 7:13 EDT us Tim Molina MD CHEMISTRY & BLOOD GAS ORDER JOEY Final Result Performing Organization Address City/[facility]/ZIP Co de Phone Number [facility] [address] [place] [address] * CREATININE (08/22/2011 3:28 EDT) Creatinine 0.54 0.52 - 1.04 mg/dl [facility] GFR, Calculated >60 >60 ml/min/1.7 3m2 [facility] Blood specimen (specimen) 08/22/2011 3:28 EDT 08/22/2011 3:42 EDT Sandra Mcdermott Stampfl PA-C CHEMISTRY & BLOOD GAS O RDERABLES Final Result Performing Organization Address [facility] de Phone Number [facility] [address] [place] [address] * BUN (08/22/2011 3:28 EDT) BUN 13 10 - 26 mg/dl [facility] Blood specimen (specimen) 08/22/2011 3:28 EDT 08/22/2011 3:42 EDT Sandra Maofl PA-C CHEMISTRY & BLOOD GAS O RDERABLES Final Result Performing Organization Address [facility] Phone Number [facility] [address] [place] [address] * (ABNORMAL) ELECTROLYTES (08/22/2011 3:28 EDT) Sodium 132(L) 136 - 145 mEq/L [facility] Potassium 3.5 3.5 - 5.0 mEq/L [facility] Chloride 97 96 - 110 mEq/L [facility] CO2 26 24 - 32 mEq/L [facility] Blood specimen (specimen) 08/22/2011 3:28 EDT 08/22/2011 3:42 EDT Sandra A Stampfl PA-C CHEMISTRY & BLOOD GAS O RDERABLES Final Result Performing Organization Address [facility] Co de Phone Number [facility] [address] [place] [address] * (ABNORMAL) HEMAGRAM (08/22/2011 3:28 EDT) Pathologist [facility] WBC 12.59(H) 4.0 - 12.4 K/cmm [facility] RBC 3.56(L) 3.86 - 5.04 M/cmm [facility] Hemoglobin 11.4(L) 11.6 - 15.2 gm/dl [facility] HCT 33.6(L) 34.9 - 44.4 % [facility] MCV 94 81 - 98 fl [facility] MCH 32.0 26.7 - 33.3 pg [facility] MCHC 33.9 32.1 - 35.9 gm/dl [facility] PLT 152 141 - 320 K/cmm [facility] RDW-CV 13.6 11.7 - 14.6 % [facility] Blood specimen (specimen) 08/22/2011 3:28 EDT 08/22/2011 3:42 EDT us Sandra Irwin PA-C HEMATOLOGY & PF4 ORDERA BLES Final Result [facility] [address] [place] [address] * (ABNORMAL) GLUCOSE, GLUCOMETER (08/21/2011 21:09 EDT) [facility] Glucose, Fingerstick 170(H) 70 - 100 mg/dl [facility] [employer] ID [id number] [facility] Comment:Test Performed by [facility] 08/21/2011 21:0 9 EDT 08/21/2011 21:28 EDT us Tim Molina MD CHEMISTRY & BLOOD GAS ORDER JOEY Final Result [facility] [address] [place] [address] * (ABNORMAL) GLUCOSE, GLUCOMETER (08/21/2011 19:35 EDT) Glucose, Fingerstick 190(H) 70 - 100 mg/dl [facility] [employer] [place] [id number] [facility] Comment:Test Performed by [facility] 08/21/2011 19:3 5 EDT 08/21/2011 19:40 EDT us Tim Molina MD CHEMISTRY & BLOOD GAS ORDER JOEY Final Result Performing Organization Address [facility] Co de Phone Number [facility] [address] [place] [address] * (ABNORMAL) GLUCOSE, GLUCOMETER (08/21/2011 13:36 EDT) Glucose, Fingerstick 189(H) 70 - 100 mg/dl [facility] [employer] [place] [id number] [facility] Comment:Test Performed by [employer] 08/21/2011 13:3 6 EDT 08/21/2011 16:10 EDT us Tim Molina MD CHEMISTRY & BLOOD GAS ORDER JOEY Final Result Performing Organization Address [facility] de Phone Number [facility] [address] [place] [address] * (ABNORMAL) GLUCOSE, GLUCOMETER (08/21/2011 8:38 EDT) Glucose, Fingerstick 142(H) 70 - 100 mg/dl [facility] [employer] [place] [id number] [facility] Comment:Test Performed by [employer] [facility] 08/21/2011 8:38 EDT 08/21/2011 8:44 EDT us Tim Molina MD CHEMISTRY & BLOOD GAS ORDER JOEY Final Result Performing Organization Address [facility] de Phone Number [facility] [address] [place] [address] documented in this encounter Visit Diagnoses Not [...] may reflect changes made after this encounter. fexofenadine (JESÚS) 60 mg tablet Take 180 [...] Gr RN) 0816 (Given - Provider: Romy Menezes, TRISHA) ceFAZolin (ANCEF) syringe 1 g (COMPLETED) 1 g, intravenous, Administer over 10 Minutes, PRE-OP ONCE, 1 dose, On Sat08/21/11 at 0945, Routine 0945 (Due)1008 (Given by Other - Provider: Lana Bowles - Comment: Administered by [facility]) clonAZEPAM (KLONOPIN) tablet 0.5 mg (CANCELED) 0.5 [...] Wheeler RN) 0816 (Given - Provider: Romy Menezes, TRISHA) fexofenadine (JEÚSS) 12 hr tablet 180 mg (CANCELED) 180 [...] on Sat08/21/11 at 1715, Until Discontinued, Routine 1948 (Given - Provider: Jewels Wheeler RN) 0817 (Not Given - Provider: Romy Menezes RN - Reason: Order parameters not met)1227 (Given - Provider: Romy Menezes RN) lisinopril (PRINIVIL, ZESTRIL) tablet 10 mg (CANCELED) 10 mg, oral, DAILY, First dose on Sat08/21/11 at 1715, Until Discontinued, Routine, On Unit 1818 (Given - Provider: Jewels Wheeler RN) 0816 (Hold - Provider: Romy Menezes RN - Reason: Order parameters not met - Comment: BP 92/53) metoprolol (LOPRESSOR) injection 5 mg (COMPLETED) 5 mg, intravenous, NOW X1, 1 dose, On Sat08/21/11 at 1430, Routine 1430 (Due)1514 (Given by Other - Provider: Afua Martinez RN - Comment: given by Dr. hernandez) Continuous Medication Order 08/20/2011 08/21/2011 08/22/2011 lactated [...] Unit 1749 (New Bag - Provider: Moisés Wheeler RN)2315 (New Bag - Provider: Silvia Gr RN) PRN Medication Order 08/20/2011 08/21/2011 08/22/2011 acetaminophen (TYLENOL) tablet 650 mg 650 mg, oral, EVERY 4 HOURS PRN, Starting on Sat08/21/11 at 1646, Until Sat08/22/11 at 1710, Pain, Routine, On Unit 2310 (Given - Provider: Silvia Gr, RN) 0559 (Given - Provider: Silvia Gr RN)1224 (Given - Provider: Romy Menezes, RN) fentanyl citrate (PF) 50 mcg/mL injection 25-100 mcg (CANCELED) 25-100 mcg, intravenous, EVERY 5 MIN PRN, Starting on 08/21/11 at 1310, Until Sat08/21/11 at 1627, Pain, Routine, Recovery (only) 1430 (Given - Provider: Afua Martinez RN)1441 (Given - Provider: Afua Martinez, TRISHA)1506 (Given - Provider: Afua Martinez RN) HYDROmorphone (DILAUDID) tablet 2-4 mg 2-4 mg, oral, EVERY 4 HOURS PRN, Starting on 08/21/11 at 1646, Until 08/22/11 at 1710, Pain, Routine, On Unit 1749 (Given - Provider: Jewels Wheeler RN) 0157 (Given - Provider: Silvia Gr RN) HYDROmorphone (PF) (DILAUDID) 1 mg/mL injection 0.2-1 mg (CANCELED) 0.2-1 mg, intravenous, EVERY 10 MINUTES PRN, Starting on 08/21/11 at 1310, Until 08/21/11 at 1627, Pain, Routine, Recovery (only) 1430 (Given - Provider: Afau Martinez RN)1507 (Given - Provider: Afua Martinez RN) phenazopyridine (PYRIDIUM) tablet 200 mg (CANCELED) 200 mg, oral, 3 TIMES DAILY PRN, 9 doses, Starting on e 08/21/11 at 1646, Until 08/22/11 at 1710, Pain, Routine, On Unit 0817 (Given - Provid er: Romy Menezes, RN) No Frequency Medication Order 08/20/2011 08/21/2011 [...] mL syringe 0.5 mg 1 0 08/21/2011 ymoxljbfwk-zkoglwe-mlfnebmk (FIORINAL) 50-325-40 mg capsule 1 Cap 1 [...] 08/22/2011 documented in this encounter Care Teams Claim Representative Relationship Specialty Start Date End Date Agustin Ramires MD [address],[facility] [address] [place] [phone] PCP - General 08/20/11 02/23/13 documented as of this encounter
--- OUTSIDE RECORDS SUMMARY | 2024-03-23 12:40 | XMS_ITS | Encounter Summary ---
Author Organization [facility] Address [address] [place] [address] Care Team Providers Care Mud Jack Nozzle Worker Name Role Phone Salome Mcarthur SEWER AND DRAIN TECHNICIAN Primary Care Provider [phone] Reason for Visit * Reason Onset Date Comments Appointment Related 02/21/2021 Encounter Details Date Type Department Care Team (Late st Contact Info) Description 02/21/[address] [facility] [address] [place], [place] [id number] Mallory Gallagher, PT [address] [place] [address] Appointment Related Social History Tobacco Use Types [...] Author Yes 08/21/2011 16:30 Sophia Kaur, RN documented in this encounter Miscellaneous Notes * Telephone Encounter - Ny Weinstein - 02/21/2021 1132 EST Milka called to cancel / not feeling well and she is re-scheduled documented in this encounter Plan of Treatment Not on file documented as of this encounter Visit Diagnoses Not on filedocumented in this encounter Care Teams Mud Jack Nozzle Worker Relationship Specialty Start Date End Date Salome Mcrathur, SEWER AND DRAIN TECHNICIAN [address] [place] [address] PCP - General 03/14/20 documented as of this encounter
--- OUTSIDE RECORDS SUMMARY | 2024-03-23 12:40 | XMS_ITS | Encounter Summary ---
Author Organization [facility] Address [address] [place] [address] Care Team Providers Care Manager Highway Name Role Phone Agustin Ramires MD Primary Care Provider [phone] Reason for Visit * Reason Onset Date Comments Fever 08/27/2011 Encounter Details Date Type Department Care Team (Late st Contact Info) Description 08/27/2011 Telephone [facility] Pelvic Medicine and Reconstructive Surgery - Medical Office [facility] [address] [place] [address] Tim Molina MD [address] [place] [phone] Fever Social History Tobacco Use Types [...] Sophia Lopez, RN documented in this encounter Ordered Prescriptions Prescription [...] filedocumented in this encounter Care Teams Manager Highway Relationship Specialty Start Date End Date Agustin Ramires MD [address],[facility] [address] [place] [phone] PCP - General 08/20/11 02/23/13 documented as of this encounter
--- OUTSIDE RECORDS SUMMARY | 2024-03-23 12:40 | XMS_ITS | Encounter Summary ---
Author Organization [facility] Address [address] [place] [address] Care Team Providers Care Landscape Foreman Name Role Phone LeathaJefe martinesdenise Greer PUBLIC SAF[employer]Y POLICE Primary Care Provider [phone] Encounter Details Date Type Department Care Team (Late st Contact Info) Description 01/16/2018 Historical Results Only [facility] Radiology Results [address] [place], [place] [phone] Ella Castle MD [address] [place] [phone] Social History Tobacco Use Types Packs/Day [...] noncritical result requiring ? follow-up on the [employer] PACS findings application, to be tracked by ? the [facility] tracking system. ? REPORT SIGNED IN OTHER VENDOR SYSTEM 01/16/2018 ?Reported By: Francis Bustamante MD ? CC: LANI WALLIS ? Transcribed Date/Time: 01/16/2018 (1706) ? Title Supervisor: ? Printed Date/Time: 09/27/2018 (2706) ? PAGE 1 ? Signed Report ? [...] a noncritical result requiring follow-up on the [employer] PACS findings application, to be tracked by the [facility] tracking system. REPORT SIGNED IN OTHER VENDOR SYSTEM 01/16/2018 Reported By: Francis Bustamante MD CC: LANI WALLIS Transcribed Date/Time: 01/16/2018 (9516) Title Supervisor: Printed Date/Time: 09/27/2018 (5545) PAGE 1 Signed Report us Ella Castle MD IMG CT ORDERABLES Final R esult documented in this encounter Visit Diagnoses Not on filedocumented in this encounter Care Teams Landscape Foreman Relationship Specialty Start Date End Date Lizbet Zhang FNP [address] [place] [address] PCP - General 02/24/13 03/13/20 documented as of this encounter
--- OUTSIDE RECORDS SUMMARY | 2024-03-23 12:40 | XMS_ITS | Encounter Summary ---
Author Organization [facility] Address [address] [place] [address] Care Team Providers Care Usability Specialist Name Role Phone Salome Mcarthur PLATE HANGER Primary Care Provider [phone] Encounter Details Date Type Department Care Team (Late st Contact Info) Description 09/20/2022 Documentation Visit [facility] - [address] [id number] Kal Clark, PT [address] [place], [place] [phone] Social History Tobacco Use Types Packs/Day Years [...] Clark, PT - 09/20/2022 1049 EDT [facility] Outpatient Rehabilitation Services [phone] Physical Therapy Discharge Not Seen Recently Medical [...] on filedocumented in this encounter Care Teams Usability Specialist Relationship Specialty Start Date End Date Salome Mcarthur, JEIMY [address] [place] [address] PCP - General 03/14/20 documented as of this encounter
--- OUTSIDE RECORDS SUMMARY | 2024-03-23 12:40 | XMS_ITS | Encounter Summary ---
Author Organization [facility] Address [address] [place] [address] Care Team Providers Care Track Repairer Name Role Phone Salome Mcarthur FACILITY SERVICE ASSOCIATE Primary Care Provider [phone] Encounter Details Date Type Department Care Team (Late st Contact Info) Description 10/25/2021 Documentation Visit [facility] - [address] [id number] Kal Clark, PT [address] [place], [place] [phone] Social History Tobacco Use Types Packs/Day Years [...] Clark, PT - 10/25/2021 1701 EDT [facility] Outpatient Rehabilitation Services [phone] Physical Therapy Discharge Not Seen Recently Medical [...] on filedocumented in this encounter Care Teams Track Repairer Relationship Specialty Start Date End Date Salome Mcarthur NP [address] [place] [address] PCP - General 03/14/20 documented as of this encounter
--- OUTSIDE RECORDS SUMMARY | 2024-03-23 12:40 | XMS_ITS | Encounter Summary ---
Author Organization [facility] Address [address] [place] [address] Care Team Providers Care Optical Laboratory Mechanic Name Role Phone Agustin Ramires MD Primary Care Provider [phone] Reason for Visit * Reason Comments Wound Infection Wound check Encounter Details Date Type Department Care Team (Late st Contact Info) Description 08/31/2011 13:30 EDT Nurse Only [facility] Pelvic Medicine and Reconstructive Surgery - Medical Office [facility] [address] [place] [address] Unknown, Provider, Tim Martínez MD [address] [place] [phone] Nurse, [facility] Mob Pelvic Med Social History Tobacco [...] documented in this encounter Progress Notes * Nancy Padron RN - 08/31/2011 1348 EDT Pt is s/p Pubovaginal sling with [...] documented as of this encounter Care Teams Optical Laboratory Mechanic Relationship Specialty Start Date End Date Agustin Ramires MD [facility] [address],[facility] [address] [place] [phone] PCP - General 08/20/11 02/23/13 documented as of this encounter
--- OUTSIDE RECORDS SUMMARY | 2024-03-23 12:40 | XMS_ITS | Encounter Summary ---
Author Organization [facility] Address [address] [place] [address] Care Team Providers Care Maxillofacial Pathology Name Role Phone LeathaLizbet DATA ENTRY MACHINE OPERATOR Primary Care Provider [phone] Encounter Details Date Type Department Care Team (Latest Contact Info) Description 05/04/2013 17:05 EST - 05/04/2013 23:59 EST Hospital Encounter [facility] [address] [place] [address] Unknown, Provider, MD Discharge Disposition: Home or [...] Sophia Kaur RN documented in this encounter Medications at [...] 1 Tab by mouth daily before breakfast. [place]-3 Fatty Acids-Vitamin E (FISH OIL) 1,000 mg [...] Code Departure Means Destination Home or Self Nursing Home documented in this encounter Plan of Treatment Not on file documented as of this encounter Visit Diagnoses Not on filedocumented in this encounter Care Teams Maxillofacial Pathology Relationship Specialty Start Date End Date Lizbet Zhang FNP [address] [place] [address] PCP - General 02/24/13 03/13/20 documented as of this encounter
--- OUTSIDE RECORDS SUMMARY | 2024-03-23 12:40 | XMS_ITS | Encounter Summary ---
Author Organization [facility] Address [address] [place] [address] Care Team Providers Care Galley Hand Name Role Phone Agustin Ramires MD Primary Care Provider [phone] Kayleigh Peña Primary Care Provider [phone] Agustin Ramires MD Primary Care Provider [phone] Lizbet Zhang Primary Care Provider + [phone] Encounter Details Date Type Department Care Team (Late st Contact Info) Description 04/11/2011 Historical Results Only [facility] - Main [place] [address] [place] [id number] Leland Boykin MD Social History Tobacco Use [...] (04/11/2011) 04/11/2011 04/12/2011 9:1 9 EST Narrative [facility] - 04/13/2011 8:50 EST ----- ------- Name: MILKA MENDIETA ?: 42 ?Age/Sex: 78/F ?Unit#: [id number] ? Loc: LAB.OPX ? Status: REG REF ?? Reg Date: 04/11/11 ? Pt.Phone Number: ? ----- ------- Specimen: [id number] ?STATUS: SOUT ?Spec Date:04/11/11 ? Physician Copies: ?Leland Boykin MD ?? Tissues: ? Urine (VOID) ? Kayleigh Peña CPT: 55874 ?? Units: ??1 ----- ------- ?? NON IMMIGRATION INSPECTOR CYTOLOGY DIAGNOSIS Urine, voided Benign urothelial cells, [...] confirmed the above diagnosis. Test Performed by [facility], [address] [facility] [place] [address] Fraud Investigator: Namrata Childs MD PHD ----- ------- us Leland Boykin MD PATHOLOGY ORDERABLES Final Resul t [facility] documented in this encounter Visit Diagnoses Not on filedocumented in this encounter Care Teams Galley Hand Relationship Specialty Start Date End Date Agustin Ramires MD [address] 2 [place] [id number] PCP - General 02/08/11 05/15/11 Kayleigh Peña PA [address] [facility] [address] [place] [address] PCP - General 05/16/11 08/19/11 Agustin Ramires MD [address] 2 [place] [phone] PCP - General 08/20/11 02/23/13 Lizbet Zhang FNP [address] [place] [id number] PCP - General 02/24/13 03/13/20 documented as of this encounter
--- OUTSIDE RECORDS SUMMARY | 2024-03-23 12:40 | XMS_ITS | Encounter Summary ---
Author Organization [facility] Address [address] [place] [address] Care Team Providers Care Desktop Publishing Operator Name Role Phone Unknown, Provider Primary Care Provider Agustin Anna MD Primary Care Provider [phone] Kayleigh Peña Primary Care Provider [phone] Agustin Ramires MD Primary Care Provider [phone] Lizbet ZhangP Primary Care Provider [phone] Encounter Details Date Type Department Care Team (Late st Contact Info) Description 09/13/2010 Historical Results Only [facility] - Main [address] [address] Leland Boykin MD Social History Tobacco Use [...] (09/13/2010) 09/13/2010 09/14/2010 9:1 8 EDT Narrative [facility] - 09/19/2010 16:59 EDT ----- ------- Name: MILKA MENDIETA ?: 42 ?Age/Sex: 78/F ?Unit#: [id number] ? Loc: LAB.OPX ? Status: REG REF ?? Reg Date: 09/14/10 ? Pt.Phone Number: ? ----- ------- Specimen: [id number] ? STATUS: SOUT ?Spec Date:09/13/10 ? Physician Copies: ?Leland Boykin MD ?? Tissues: ? Urine (VOID) ? CPT: 87355 ?? Units: ??1 ----- ------- ?? NON SWIMMING INSTRUCTOR CYTOLOGY DIAGNOSIS Urine, voided: - Cellular specimen [...] diagnosis. Test Performed by [facility], [address] [place] [address] Toter: Namrata Childs MD PHD ----- ------- Leland Boykin MD PATHOLOGY ORDERABLES Final Resul t [facility] documented in this encounter Visit Diagnoses Not on filedocumented in this encounter Care Teams Desktop Publishing Operator Relationship Specialty Start Date End Date Unknown, Provider, PCP - General 05/17/10 02/07/11 Agustin Ramires MD [address] [address] [place] [address] PCP - General 02/08/11 05/15/11 Kayleigh Peña PA [address] [place] [address] PCP - General 05/16/11 08/19/11 Agustin Ramires MD [address] [address] [place] [address] PCP - General 08/20/11 02/23/13 Lizbet Zhang FNP [address] [place], [place] [id number] PCP - General 02/24/13 03/13/20 documented as of this encounter
--- OUTSIDE RECORDS SUMMARY | 2024-03-23 12:40 | XMS_ITS | Encounter Summary ---
Author Organization [facility] Address [address] [place] [address] Care Team Providers Care Landscaper Name Role Phone LeathaLizbet LICENSED REACTOR OPERATOR Primary Care Provider [phone] Encounter Details Date Type Department Care Team (Latest Contact Info) Description 01/15/2018 15:25 EDT - 01/15/2018 23:59 EDT Hospital Encounter [facility] [address] [place] [address] Unknown, Provider, MD Discharge Disposition: Home or [...] 1 Tab by mouth daily before breakfast. [place]-3 Fatty Acids-Vitamin E (FISH OIL) 1,000 mg [...] on filedocumented in this encounter Care Teams Landscaper Relationship Specialty Start Date End Date Lizbet Zhang FNP [address] [place] [address] PCP - General 02/24/13 03/13/20 documented as of this encounter
--- OUTSIDE RECORDS SUMMARY | 2024-03-23 12:40 | XMS_ITS | Encounter Summary ---
Author Organization [facility] Address [address] [place] [address] Care Team Providers Care Billet Cutter Name Role Phone Salome Mcarthur HORSE RACE STARTER Primary Care Provider [phone] Encounter Details Date Type Department Care Team (Late st Contact Info) Description 01/17/2021 Lab Requisition [facility] Pathology & Laboratory Medicine - [facility] [address] [place] [address] Outr Resulting Lab, Provider Social History [...] 211 - 911 pg/mL 01/17/2021 21:53 EDT [facility] Blood VENOUS BLOOD / Unknown 01/17/2021 12:56 EDT 01/17/2021 21:02 EDT us Provider Outr Resulting Lab CHEMISTRY & BLOOD GA S ORDERABLES Final Result [facility] [address] [place] [address] documented in this encounter Visit Diagnoses Not on filedocumented in this encounter Care Teams Billet Cutter Relationship Specialty Start Date End Date Salome Mcarthur, HORSE RACE STARTER [address] [place] [address] PCP - General 03/14/20 documented as of this encounter
--- OUTSIDE RECORDS SUMMARY | 2024-03-23 12:40 | XMS_ITS | Encounter Summary ---
Author Organization [facility] Address [address] [place] [address] Care Team Providers Care Mechanical Drawing Teacher Name Role Phone Salome Mcarthur BREAD DISTRIBUTOR Primary Care Provider [phone] Encounter Details Date Type Department Care Team (Late st Contact Info) Description 10/25/2023 Lab Requisition [facility] Pathology & Laboratory Medicine - [place] [address] [place] [address] Outr Resulting Lab, Provider Social [...] Wendy Species Positive(A) Negative 10/26/19 12:46 EDT [facility] Wendy glabrata Positive(A) Negative 10/26/2023 12:46 EDT [facility] Trichomonas Vaginalis Negative Negative 10/26/2023 12:46 EDT [facility] BV (Bacterial vaginosis) Negative Negative 10/26/2023 12:46 EDT [facility] Swab VAGINAL STRUCTURE / Unknown 10/25/2023 11:00 EDT 10/25/2023 22:59 EDT us Provider Outr Resulting Lab MICROBIOLOGY - GENER AL ORDERABLES Final Result Performing Organization Address City/State/[facility] Co de Phone Number [facility] [address] [place] [phone] documented in this encounter Visit Diagnoses Not on filedocumented in this encounter Care Teams Mechanical Drawing Teacher Relationship Specialty Start Date End Date Salome Mcarthur NP [address] [place] [address] PCP - General 03/14/20 documented as of this encounter
--- OUTSIDE RECORDS SUMMARY | 2024-03-23 12:40 | XMS_ITS | Encounter Summary ---
Author Organization [facility] Address [address] [place] [address] Care Team Providers Care Geodetic Advisor Name Role Phone Salome Mcarthur UPHOLSTERED GOODS CRAFTER Primary Care Provider [phone] Encounter Details Date Type Department Care Team [...] on filedocumented in this encounter Care Teams Geodetic Advisor Relationship Specialty Start Date End Date Salome Mcarthur, UPHOLSTERED GOODS CRAFTER [address] [facility] [address] PCP - General 03/14/20 documented as of this encounter
--- OUTSIDE RECORDS SUMMARY | 2024-03-23 12:40 | XMS_ITS | Encounter Summary ---
Author Organization [facility] Address [address] [place] [address] Care Team Providers Care Comparator Operator Name Role Phone Salome Mcarthur MANAGEMENT LIAISON Primary Care Provider [phone] Reason for Visit * Reason Comments Oral Pain Encounter Details Date Type Department Care Team (Late st Contact Info) Description 08/04/2023 15:30 EDT Walk-In [address] [address] Tristan Santa, JEIMY [address] [facility] [address] [place] [address] Thrush, oral (Primary Dx) Social [...] the past. I did send it to [facility] so if they do not have it they can call and we can order else where or send in a different script. Follow-up with dentist related to ill fitting partials as you do have some irritated mucosa lining your lower partial on the left side. * Attachments The following attachments cannot be sent through Care Everywhere. * Candidiasis (Afghan) documented in this encounter Ordered Prescriptions Prescription Sig Dispense Quantity Refills Last Filled Start Date End Date nystatin (MYCOSTATIN) 100,000 unit/mL suspension Take 5 mL by mouth 4 times daily for 7 days. 140 mL 08/04/2023 08/11/2023 documented in this encounter Progress Notes * Geraldine Harp RN - 08/04/2023 1530 EDT CC/HPI: burning in [...] RN or in discussion with available provider (HOG KILLER's and CCA's can defer to Charge Nurse to complete triage when appropriate) PCP: Salome Mcarthur * Tristan Santa NP - 08/04/2023 1530 EDT Images from the original note were not included. [facility] Chief Complaint(s): Oral Pain Assessment [...] may reflect changes made after this encounter. gabapentin (NEURONTIN) 600 mg tablet Take 1 [...] day 07/15/2023 d-mannose 500 mg capsule daily. Diet TVTOOktalogic ULTRA2 METER 02/07/2023 [facility] ULTRA TEST test strips USE 1 STRIP VIA METER THREE TIMES A DAY DIRECTED 09/11/2022 atorvastatin (LIPITOR) 20 mg tablet TAKE 1 TABLET BY MOUTH AT NIGHT albuterol 90 mcg/actuation inhaler Inhale 2 puff using inhaler every four to six hours as needed added in this encounter Care Teams Comparator Operator Relationship Specialty Start Date End Date Salome Mcarthur, MANAGEMENT LIAISON [address] [place] [address] PCP - General 03/14/20 documented as of this encounter
--- OUTSIDE RECORDS SUMMARY | 2024-03-23 12:40 | XMS_ITS | Encounter Summary ---
Author Organization [facility] Address [address] [place] [address] Care Team Providers Care Industrial Engineering Technologist Name Role Phone Salome Mcarthur MILLSTONE CLEANER Primary Care Provider [phone] Encounter Details Date Type Department Care Team (Late st Contact Info) Description 10/17/2023 Documentation Visit [facility] - [address] [address] Kal Clark, PT [address] [place], [place] [id number] Social History Tobacco Use Types Packs/Day Years [...] Notes * Kal Clark, PT - 10/17/2023 1517 EDT [facility] [place] [facility] [phone] Physical Therapy Discharge Not Seen Recently Medical [...] on filedocumented in this encounter Care Teams Industrial Engineering Technologist Relationship Specialty Start Date End Date Salome Mcarthur NP [address] [place] [address] PCP - General 03/14/20 documented as of this encounter
--- OUTSIDE RECORDS SUMMARY | 2024-03-23 12:41 | XMS_ITS | Encounter Summary ---
Author Organization [facility] Address [address] [place] [address] Care Team Providers Care Generation Engineering Technologist Name Role Phone Avel Rivera MD Primary Care Provider Unav ailable Encounter Details Date Type Department Care Team (Late st Contact Info) Description 04/25/2007 Before PRISM Converted Visit (Maple) [facility] - Maple conversion [address] [place] [address] Tiara Mendez MD [phone] [place] [address] Social History Tobacco Use Types Packs/Day Years Used Date Smoking Tobacco: Never Assessed Comments Unknown Sex and Gender Information Value Date Recorded Sex Assigned at Not on file Legal Sex Female 18:18 EST Gender Identity Female 02/14/2022 14:15 EST Sexual Orientation Not on file documented as of this encounter Progress Notes * Tad, Alison Hot Water Heater Installer - 02/16/2009 1357 EST [facility] PROGRESS/FOLLOWUP NOTE - 05/09/2007 ANA M Jarquin [...] 08:52 Tiara Mendez MD P Job ID [id number] T: 6:02 P/JG Doc ID [id number] cc: P Job ID [id number] P/jg Doc ID [id number] cc: * Alison Mishra Hot Water Heater Installer - 02/16/2009 2053 EST [facility] PROGRESS/FOLLOWUP NOTE - 04/25/2007 ANA M Jarquin [...] 09:42 Tiara Mendez MD P Job ID [id number] T: 5:05 A/jennie Doc ID [id number] cc: cc: documented in this encounter Plan of Treatment Not on file documented as of this encounter Visit Diagnoses Not on filedocumented in this encounter Care Teams Generation Engineering Technologist Relationship Specialty Start Date End Date Avel Rivera MD PCP - General 09/03/08 07/10/09 documented as of this encounter
--- OUTSIDE RECORDS SUMMARY | 2024-03-23 12:41 | XMS_ITS | Encounter Summary ---
Author Organization [facility] Address [address] [place] [address] Care Team Providers Care Clinical Trials Specialist Name Role Phone Avel Rivera MD Primary Care Provider Unav ailable Encounter Details Date Type Department Care Team (Late st Contact Info) Description 03/14/2006 Before PRISM Converted Visit (Maple) [facility] - Maple conversion [address] [place] [address] Tiara Mendez MD [phone] [place] [address] Social History Tobacco Use Types Packs/Day Years Used Date Smoking Tobacco: Never Assessed Comments Unknown Sex and Gender Information Value Date Recorded Sex Assigned at Not on file Legal Sex Female 18:18 EST Gender Identity Female 02/14/2022 14:15 EST Sexual Orientation Not on file documented as of this encounter Progress Notes * Tad, Conv Sys Dir - 04/25/2009 0014 EST [facility] PROGRESS/FOLLOWUP NOTE - 04/04/2006 Milka is here [...] Signed by Tiara Mendez MD 04/14/2006 11:26 Krishna Mendez MDDcat Mendez MD Tiara Mendez MD - Tiara Mendez MD P - sa Job ID: [id number] Document ID: [id number] * Alison Mishra Sys Dir - 04/24/20091955 EST [facility] PROGRESS/FOLLOWUP NOTE - 03/14/2006 SUBJECTIVE: comes in [...] Mendez MD P - clr Job ID: [id number] Document ID: [id number] cc: documented in this encounter Plan of Treatment Not on file documented as of this encounter Visit Diagnoses Not on filedocumented in this encounter Care Teams Clinical Trials Specialist Relationship Specialty Start Date End Date Avel Rivera MD PCP - General 09/03/08 07/10/09 documented as of this encounter
--- OUTSIDE RECORDS SUMMARY | 2024-03-23 12:41 | XMS_ITS | Encounter Summary ---
Author Organization [facility] Address [address] [place] [address] Care Team Providers Care Padder Cushion Name Role Phone Agustin Ramires MD Primary Care Provider [phone] Unknown, Provider Primary Care Provider Unava ilable Agustin Ramires MD Primary Care Provider [phone] Kayleigh Peña Primary Care Provider [phone] Agustin Ramires MD Primary Care Provider [phone] Lizbet Zhang CHAR BELT OPERATOR Primary Care Provider [phone] Encounter Details Date Type Department Care Team (Late st Contact Info) Description 11/09/2009 Historical Results Only [facility] - Main [address] [address] Leland Boykin MD Social History Tobacco Use [...] (11/09/2009) 11/09/2009 11/09/2009 17: 51 EDT Narrative [facility] - 11/10/2009 13:18 EDT ----- ------- Name: MILKA MENDIETA ?: 42 ?Age/Sex: 78/F ?Unit#: [id number] ? Loc: LAB.OPX ? Status: REG REF ?? Reg Date: 11/09/09 ? Pt.Phone Number: ? ----- ------- Specimen: [id number] ? STATUS: SOUT ?Spec Date:11/09/09 ? Physician Copies: ?Leland Boykin MD ?? Tissues: ? Urine (CLEAN CATCH) ? CPT: 50330 ?? Units: ??1 ----- ------- ?? NON POLISHER BRASS CYTOLOGY DIAGNOSIS URINE, VOIDED Benign urothelial cells. [...] above diagnosis. Test Performed by [facility], [address] [place] [address] Embedded Systems Designer: Namrata Childs MD PHD ----- ------- us Leland Boykin MD PATHOLOGY ORDERABLES Final Resul t [facility] documented in this encounter Visit Diagnoses Not on filedocumented in this encounter Care Teams Padder Cushion Relationship Specialty Start Date End Date Agustin Ramires MD [address] [address] [place] [address] PCP - General 07/11/09 05/16/10 Unknown, Provider, PCP - General 05/17/10 02/07/11 Agustin Ramires MD [address] [address] [place] [address] PCP - General 02/08/11 05/15/11 Kayleigh Peña PA [address] [facility] [address] [place] [address] PCP - General 05/16/11 08/19/11 Agustin Ramires MD [address] [address] [place] [address] PCP - General 08/20/11 02/23/13 Lizbet Zhang FNP [address] [place] [address] PCP - General 02/24/13 03/13/20 documented as of this encounter
--- OUTSIDE RECORDS SUMMARY | 2024-03-23 12:41 | XMS_ITS | Encounter Summary ---
Author Organization [facility] Address [address] [place] [address] Care Team Providers Care Computer Technology Teacher Name Role Phone Avel Rivera MD Primary Care Provider Unav ailable Encounter Details Date Type Department Care Team (Late st Contact Info) Description 03/30/2005 Before PRISM Converted Visit (Maple) [facility] - Maple conversion [address] [place] [address] Luis Fernando Kinsey MD [address] [place] [phone] Social History Tobacco Use Types Packs/Day Years Used Date Smoking Tobacco: Never Assessed Comments Unknown Sex and Gender Information Value Date Recorded Sex Assigned at Not on file Legal Sex Female 18:18 EST Gender Identity Female 02/14/2022 14:15 EST Sexual Orientation Not on file documented as of this encounter Progress Notes * Luis Fernando Kinsey - 06/09/20092105 EST [facility] PROGRESS/FOLLOWUP NOTE - 03/30/2005 REASON FOR VISIT: [...] Kinsey MD A - clr Job ID: [id number] Document ID: [id number] cc: documented in this encounter Plan of Treatment Not on file documented as of this encounter Visit Diagnoses Not on filedocumented in this encounter Care Teams Computer Technology Teacher Relationship Specialty Start Date End Date Avel Rivera MD PCP - General 09/03/08 07/10/09 documented as of this encounter
--- OUTSIDE RECORDS SUMMARY | 2024-03-23 12:41 | XMS_ITS ---
Author Organization Unknown Address [address] [place] [address] [phone] Phone Care Team Providers Care Commercial Kitchen Service Technician Name Role Phone GINOINGRIS MAHENDRA Attending Unavailable [facility] Primary Unavailable Social History Type Status Start Date End Date Code Code Syst em Smoking History Never smoker (Never Smoked) 492978519 SNOMED CT Sex Female Medications Medication Start Date End Date Route Frequency Dose Code Code System Medication Instructions Home Meds Amitriptyline 50MG Oral Tablet 08/20/2019 01/02/2022 ORAL BEDTIME 50 MILLIGRAMS 290865 RxNorm TAKE 50 MILLIGRAMS ORAL BEDTIME Atorvastatin Calcium 20MG Oral Tablet 08/20/2019 Unknown ORAL BEDTIME 20 MILLIGRAMS 534110 RxNorm TAKE 20 MILLIGRAMS ORAL BEDTIME Fish Oil 1000MG Oral Capsule, Liquid Filled 08/20/2019 03/18/2024 ORAL DAILY 3 CAPSULE 932228 RxNorm TA KE 3 CAPSULE ORAL DAILY Gabapentin 800MG Oral Tablet 08/20/2019 03/18/2024 ORAL TWICE A DAY 1 TABLET 696597 RxNorm TAKE 1 TABLET ORAL TWICE A DAY Lisinopril 20MG Oral Tablet 08/20/2019 03/18/2024 ORAL DAILY 20 MILLIGRAMS 807526 RxNorm TAKE 20 MILLIGRAMS ORAL DAILY Loratadine 10MG Oral Tablet 08/20/2019 01/02/2022 ORAL DAILY 10 MILLIGRAMS 597137 RxNorm TAKE 10 MILLIGRAMS ORAL DAILY Multiple Vitamin Formula Oral Tablet 08/20/2019 03/18/2024 ORAL DAILY 1 unit(s) 9010385 RxNorm TAKE 1 E ACH ORAL DAILY Pramipexole Dihydrochlorid e 0.125MG Oral Tablet 08/20/2019 09/30/2023 ORAL BEDTIME 2 TABLET 800646 RxNorm TAKE 2 TABLET ORAL BEDTIME Probiotic 250MG Oral Capsule 08/20/2019 01/02/2022 ORAL DAILY 3 TABLET 703155 RxNorm TAKE 3 TABLET ORAL DAILY glipiZIDE 10MG Oral Tablet, Extended Release 08/20/2019 Unknown ORAL DAILY 10 MILLIGRAMS 437555 RxNorm TAKE 10 MILLIGRAMS ORAL DAILY metFORMIN HCl 1000MG Oral Tablet 08/20/2019 Unknown ORAL TWICE A DAY WITH FOOD 1000 MILLIGRAMS 654184 RxNorm TAKE 1000 MILLIGRAMS ORAL TWICE A DAY WITH FOOD Cephalexin 500MG Oral Tablet 08/20/2019 01/02/2022 ORAL THREE TIMES A DAY 1 TABLET 517275 RxNorm TAKE 1 TABLET ORAL THREE TIMES A DAY Keflex 500MG Oral Capsule 01/02/2022 09/30/2023 ORAL THREE TIMES A DAY 1 CAPSULE 386609 RxNorm TAKE 1 CAPSULE ORAL THREE TIMES A DAY Nystatin 651340W/1ML Oral Suspension 01/02/2022 09/30/2023 ORAL FOUR TIMES A DAY 5 mL 240668 RxNorm TAKE 5 mL ORAL FOUR TIMES A DAY Cephalexin 500MG Oral Tablet 03/17/2024 03/19/2024 ORAL TWICE A DAY 1 TABLET 730234 RxNorm TAKE 1 TABLET ORAL TWICE A DAY x 7 days Acetaminophen 500MG Oral Tablet 03/18/2024 03/18/2024 ORAL NEEDED EVERY 6 HOURS 2 TABLET 938441 RxNorm TAKE 2 TABLET (OR 3 TABLETS regular strength 325mg) ORAL EVERY 6 HOURS FOR 1-2 DAYS THEN NEEDED FOR Fever/Pain (NEXT DOSES 6AM AND 12 NOON) Ibuprofen 200MG Oral Tablet 03/18/2024 03/18/2024 ORAL EVERY 6 HOURS 2 TABLET 154673 RxNorm TAKE 2 TABLET ORAL EVERY 6 HOURS FOR 24 HOURS THEN NEEDED. (NEXT DOSES at 4AM AND 10AM) Aspirin 81MG Oral Tablet, Enteric Coated 03/19/2024 Unknown ORAL DAILY 81 MILLIGRAMS 810800 RxNorm TAKE 81 MILLIGRAMS ORAL DAILY Carvedilol 6.25MG Oral Tablet 03/19/2024 Unknown ORAL TWICE A DAY 6.25 MILLIGRAMS 538203 RxNorm TAKE 6.25 MILLIGRAMS ORAL TWICE A DAY Fish Oil [place]-3 1000 MG Oral Capsule, Liquid Filled 03/19/2024 Unknown ORAL DAILY 1000 MG RxNorm TAKE 10 00 MG ORAL DAILY Gabapentin 600MG Oral Tablet 03/19/2024 Unknown ORAL TWICE A DAY 600 MILLIGRAMS 389695 RxNorm TAKE 600 MILLIGRAMS ORAL TWICE A DAY Lisinopril 10MG Oral Tablet 03/19/2024 Unknown ORAL DAILY 10 MILLIGRAMS 812667 RxNorm TAKE 10 MILLIGRAMS ORAL DAILY Multiple [...] Tablet 03/19/2024 Unknown ORAL BEDTIME 0.5 MILLIGRAMS 191122 RxNorm TAKE 0.5 MILLIGRAMS ORAL BEDTIME Ventolin HFA 0.09MG/1Actuat ion Inhalation Suspension 03/19/2024 Unknown INHAL ATION NEEDED EVERY 4 HOURS 2 unit(s) 138862 RxNorm 2 EACH INHALATION NEEDED EVERY 4 HOURS Victoza 6MG/1ML Subcutaneous Solution 03/19/2024 Unknown SUBCU TANEO US 1.8 MILLILITERS 622768 RxNorm INJECT 1.8 MILLILITERS SUBCUTANEOU S Cefdinir [...] Code Code System URINARY TRACT INFECTION active 168914 05 SNOMED-CT HYPOTENSION active 97218433 SNOMED-C T HYPOKALEMIA active 97655647 SNOMED-C T SEPSIS active 92328786 SNOMED-CT CIRRHOSIS - NON-ALCOHOLIC 01/02/2022 resolved 266 344869 SNOMED-CT HTN 08/20/2019 resolved 99481489 SNOMED-CT HIGH CHOLESTEROL 10/01/2023 resolved 15679288 SN OMED-CT PERSONAL HISTORY OF BLADDER CA 08/20/2019 resolved 206539397 SNOMED-CT NON-INSULIN DEPENDENT DIABETES MELLITUS 08/20/2019 resolved 65228745 SNOMED-CT 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 626284196 SNOMED-CT Allergies and Adverse Reactions Allergy Substance Reaction Severity Start Date Concern Status Co de Code System CODEINE Active 6916 RxNorm Plan of Treatment NM MPI STR/RST 05/15/2023 CT CHEST W/O CONTRAST 05/18/2022 CT CHEST W/O CONTRAST 03/26/2022 MRI BRAIN W/O CONTRAST 01/25/2021 Encounters Encounter Diagnosis Start Date Code Code Sys tem Benign paroxysmal vertigo, left ear 11/01/2020 SNOMED-CT Personal Care Team Section Performer Name Performer Role Active Date Inactive Da lanette
--- OUTSIDE RECORDS SUMMARY | 2024-03-23 12:41 | XMS_ITS ---
Author Organization Unknown Address [address] [place] [address] [phone] Phone Care Team Providers Care Family Medicine Resident Name Role Phone KATHIE ARTEAGA MD Attending Unavailable SALLIE DENISE MD ER Unavailable JOHN PETERSON Primary Unavailable Results TSH THYROID STIMULATING HORM ONE - Collect Date/Time: 10/03/2020 14:03 [facility] ID: [id number] [address] [place] [address], [address] LOINC: 3014-8 Test Value Unit Reference Range Code Code System Flag TSH 1.863 uIU/mL L=0.360 H=3.740 3014-8 LOINC TROPONIN-I ADM. - Collect Da te/Time: 10/03/2020 14:03 [facility] ID: [id number] [address] [place] [address], [address] LOINC: 89165-0 Test Value Unit Reference Range Code Code System Flag TROPONIN-I < 0.017 ng/mL L=0.000 H=0.060 30201-5 LOINC COMPREHENSIVE METABOLIC PANE L (CMP) - Collect Date/Time: 10/03/2020 14:03 [facility] ID: [id number] [address] [place] [address], [address] LOINC: 67308-4 Test Value Unit Reference Range Code Code [...] H=34 2028-9 LOINC ANION GAP 8.8 mmol/L 34366-3 LOINC CALCIUM SERUM 9.6 mg/dL L=8.2 H=10.2 71723-5 LOINC BILIRUBIN TOTAL 0.6 mg/dL L=0.0 H=1.3 1975-2 LOINC ALK. PHOS. 87 U/L L=46 H=116 6768-6 LOINC SGOT (AST) 22 U/L L=15 H=37 1920-8 LOINC SGPT (ALT) 33 U/L L=12 H=78 1742-6 LOINC TOTAL PROTEIN 7.3 gm/dL L=6.0 H=8.0 2885-2 LOINC ALBUMIN 3.9 gm/dL L=3.4 H=5.0 1751-7 LOINC AGE 80 years eGFR (non-Afr.Amer.) 76 mL/min 42641-1 LOINC eGFR (Afr-Indonesian) 92 mL/min 90555-6 LOINC CBC W/ DIFFERENTIAL - Collec t Date/Time: 10/03/2020 14:03 [facility] ID: [id number] - [id number] [address] [place], [place], [address] LOINC: 61640-8 Test Value Unit Reference Range Code Code [...] D Saturday, October 03, 2020 2:42:30 PM 280637 [id number] Electronically Reviewed and Signed By: DYLAN SHER M.D. RADIOLOGIST 10/05/20 08:11 Copy for: SALLIE DENISE MD via modem Copy for: KATHIE ARTEAGA MD via modem DISCHARGED Social History Type Status Start Date End Date Code Code Syst em Smoking History Never smoker (Never Smoked) 218951198 SNOMED CT Sex Female Medications Medication Start Date End Date Route Frequency Dose Code Code System Medication Instructions Home Meds Amitriptyline 50MG Oral Tablet 08/20/2019 01/02/2022 ORAL BEDTIME 50 MILLIGRAMS 881097 RxNorm TAKE 50 MILLIGRAMS ORAL BEDTIME Atorvastatin Calcium 20MG Oral Tablet 08/20/2019 Unknown ORAL BEDTIME 20 MILLIGRAMS 323919 RxNorm TAKE 20 MILLIGRAMS ORAL BEDTIME Fish Oil 1000MG Oral Capsule, Liquid Filled 08/20/2019 03/18/2024 ORAL DAILY 3 CAPSULE 597883 RxNorm TA KE 3 CAPSULE ORAL DAILY Gabapentin 800MG Oral Tablet 08/20/2019 03/18/2024 ORAL TWICE A DAY 1 TABLET 094972 RxNorm TAKE 1 TABLET ORAL TWICE A DAY Lisinopril 20MG Oral Tablet 08/20/2019 03/18/2024 ORAL DAILY 20 MILLIGRAMS 190106 RxNorm TAKE 20 MILLIGRAMS ORAL DAILY Loratadine 10MG Oral Tablet 08/20/2019 01/02/2022 ORAL DAILY 10 MILLIGRAMS 746952 RxNorm TAKE 10 MILLIGRAMS ORAL DAILY Multiple Vitamin Formula Oral Tablet 08/20/2019 03/18/2024 ORAL DAILY 1 unit(s) 7769325 RxNorm TAKE 1 E ACH ORAL DAILY Pramipexole Dihydrochlorid e 0.125MG Oral Tablet 08/20/2019 09/30/2023 ORAL BEDTIME 2 TABLET 553347 RxNorm TAKE 2 TABLET ORAL BEDTIME Probiotic 250MG Oral Capsule 08/20/2019 01/02/2022 ORAL DAILY 3 TABLET 222275 RxNorm TAKE 3 TABLET ORAL DAILY glipiZIDE 10MG Oral Tablet, Extended Release 08/20/2019 Unknown ORAL DAILY 10 MILLIGRAMS 036387 RxNorm TAKE 10 MILLIGRAMS ORAL DAILY metFORMIN HCl 1000MG Oral Tablet 08/20/2019 Unknown ORAL TWICE A DAY WITH FOOD 1000 MILLIGRAMS 290020 RxNorm TAKE 1000 MILLIGRAMS ORAL TWICE A DAY WITH FOOD Cephalexin 500MG Oral Tablet 08/20/2019 01/02/2022 ORAL THREE TIMES A DAY 1 TABLET 114665 RxNorm TAKE 1 TABLET ORAL THREE TIMES A DAY Keflex 500MG Oral Capsule 01/02/2022 09/30/2023 ORAL THREE TIMES A DAY 1 CAPSULE 039968 RxNorm TAKE 1 CAPSULE ORAL THREE TIMES A DAY Nystatin 723991C/1ML Oral Suspension 01/02/2022 09/30/2023 ORAL FOUR TIMES A DAY 5 mL 601130 RxNorm TAKE 5 mL ORAL FOUR TIMES A DAY Cephalexin 500MG Oral Tablet 03/17/2024 03/19/2024 ORAL TWICE A DAY 1 TABLET 021916 RxNorm TAKE 1 TABLET ORAL TWICE A DAY x 7 days Acetaminophen 500MG Oral Tablet 03/18/2024 03/18/2024 ORAL NEEDED EVERY 6 HOURS 2 TABLET 055856 RxNorm TAKE 2 TABLET (OR 3 TABLETS regular strength 325mg) ORAL EVERY 6 HOURS FOR 1-2 DAYS THEN NEEDED FOR Fever/Pain (NEXT DOSES 6AM AND 12 NOON) Ibuprofen 200MG Oral Tablet 03/18/2024 03/18/2024 ORAL EVERY 6 HOURS 2 TABLET 923955 RxNorm TAKE 2 TABLET ORAL EVERY 6 HOURS FOR 24 HOURS THEN NEEDED. (NEXT DOSES at 4AM AND 10AM) Aspirin 81MG Oral Tablet, Enteric Coated 03/19/2024 Unknown ORAL DAILY 81 MILLIGRAMS 660537 RxNorm TAKE 81 MILLIGRAMS ORAL DAILY Carvedilol 6.25MG Oral Tablet 03/19/2024 Unknown ORAL TWICE A DAY 6.25 MILLIGRAMS 174150 RxNorm TAKE 6.25 MILLIGRAMS ORAL TWICE A DAY Fish Oil Solomon-3 1000 MG Oral Capsule, Liquid Filled 03/19/2024 Unknown ORAL DAILY 1000 MG RxNorm TAKE 10 00 MG ORAL DAILY Gabapentin 600MG Oral Tablet 03/19/2024 Unknown ORAL TWICE A DAY 600 MILLIGRAMS 726390 RxNorm TAKE 600 MILLIGRAMS ORAL TWICE A DAY Lisinopril 10MG Oral Tablet 03/19/2024 Unknown ORAL DAILY 10 MILLIGRAMS 318540 RxNorm TAKE 10 MILLIGRAMS ORAL DAILY Multiple [...] Tablet 03/19/2024 Unknown ORAL BEDTIME 0.5 MILLIGRAMS 730800 RxNorm TAKE 0.5 MILLIGRAMS ORAL BEDTIME Ventolin HFA 0.09MG/1Actuat ion Inhalation Suspension 03/19/2024 Unknown INHAL ATION NEEDED EVERY 4 HOURS 2 unit(s) 926553 RxNorm 2 EACH INHALATION NEEDED EVERY 4 HOURS Victoza 6MG/1ML Subcutaneous Solution 03/19/2024 Unknown SUBCU TANEO US 1.8 MILLILITERS 236361 RxNorm INJECT 1.8 MILLILITERS SUBCUTANEOU S Cefdinir [...] Code Code System URINARY TRACT INFECTION active 788741 05 SNOMED-CT HYPOTENSION active 58795853 SNOMED-C T HYPOKALEMIA active 34133006 SNOMED-C T SEPSIS active 90065594 SNOMED-CT CIRRHOSIS - NON-ALCOHOLIC 01/02/2022 resolved 266 456940 SNOMED-CT HTN 08/20/2019 resolved 77665291 SNOMED-CT HIGH CHOLESTEROL 10/01/2023 resolved 22365088 SN OMED-CT PERSONAL HISTORY OF BLADDER CA 08/20/2019 resolved 563539082 SNOMED-CT NON-INSULIN DEPENDENT DIABETES MELLITUS 08/20/2019 resolved 46628701 SNOMED-CT 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 797104454 SNOMED-CT Allergies and Adverse Reactions Allergy Substance Reaction Severity Start Date Concern Status Co de Code System CODEINE Active 1506 RxNorm Plan of Treatment NM MPI STR/RST 05/15/2023 CT CHEST W/O CONTRAST 05/18/2022 CT CHEST W/O CONTRAST 03/26/2022 MRI BRAIN W/O CONTRAST 01/25/2021 Encounters Encounter Diagnosis Start Date Code Code Sys tem Other peripheral vertigo, unspecified ear 10/03/2020 SNOMED-CT Personal Care Team Section Performer Name Performer Role Active Date Inactive Da lanette
--- OUTSIDE RECORDS SUMMARY | 2024-03-23 12:41 | XMS_ITS | Encounter Summary ---
Author Organization [facility] Address [address] [place] [address] Care Team Providers Care Call Center Specialist Name Role Phone Avel Rivera MD Primary Care Provider Unav ailable Encounter Details Date Type Department Care Team (Late st Contact Info) Description 12/12/2005 Before PRISM Converted Visit (Maple) [facility] - Maple conversion [address] [place] [address] Tiara Mendez MD [phone] [place] [address] Social History Tobacco Use Types Packs/Day Years Used Date Smoking Tobacco: Never Assessed Comments Unknown Sex and Gender Information Value Date Recorded Sex Assigned at Not on file Legal Sex Female 18:18 EST Gender Identity Female 02/14/2022 14:15 EST Sexual Orientation Not on file documented as of this encounter Progress Notes * Tad, Conv Nursing Agency Manager - 04/14/2009 0817 EST [facility] PROGRESS/FOLLOWUP NOTE - 12/12/2005 S: Milka comes [...] Signed by Tiara Mendez MD 12/20/2005 15:34 Luke Dukes MD Tiara Mendez MD - Tiara Mendez MD P - prs Job ID: [id number] Document ID: [id number] cc: - Tiara Mendez MD P - prs Job ID: [id number] Document ID: [id number] cc: documented in this encounter Plan of Treatment Not on file documented as of this encounter Visit Diagnoses Not on filedocumented in this encounter Care Teams Call Center Specialist Relationship Specialty Start Date End Date Avel Rivera MD PCP - General 5/29/09 4/4/10 documented as of this encounter
--- OUTSIDE RECORDS SUMMARY | 2024-03-23 12:41 | XMS_ITS | Encounter Summary ---
Author Organization [facility] Address [address] [place] [address] Care Team Providers Care Ride Attendant Name Role Phone Agustin Ramires MD Primary Care Provider [phone] Unknown, Provider Primary Care Provider Unava ilable Agustin Ramires MD Primary Care Provider [phone] Kayleigh Peña Primary Care Provider [phone] Agustin Ramires MD Primary Care Provider [phone] Lizbet Zhang LEAD TANK MECHANIC Primary Care Provider [phone] Encounter Details Date Type Department Care Team (Late st Contact Info) Description 03/08/2010 Historical Results Only [facility] [place] [address] [address] Leland Boykin MD Social History Tobacco Use [...] (03/08/2010) 03/08/2010 03/09/2010 10: 05 EST Narrative [facility] - 03/09/2010 14:09 EST ----- ------- Name: MILKA MENDIETA ?: 42 ?Age/Sex: 78/F ?Unit#: [id number] ? Loc: LAB.OPX ? Status: REG REF ?? Reg Date: 03/08/10 ? Pt.Phone Number: ? ----- ------- Specimen: [id number] ?STATUS: SOUT ?Spec Date:03/08/10 ? Physician Copies: ?Leland Boykin MD ?? Tissues: ? Urine (CLEAN CATCH URINE-VOIDED) ? CPT: 97146 ?? Units: ??1 ----- ------- ?? NON REGISTERED DENTAL ASSISTANT CYTOLOGY DIAGNOSIS Urine, voided: - No malignant [...] confirmed the above diagnosis. Test Performed by [facility], [address] [place] [address] Harvest Crew Supervisor: Namrata Childs MD PHD ----- ------- Leland Boykin MD PATHOLOGY ORDERABLES Final Resul t [facility] documented in this encounter Visit Diagnoses Not on filedocumented in this encounter Care Teams Ride Attendant Relationship Specialty Start Date End Date Agustin Ramires MD [address] [place] [address] [place] [address] PCP - General 07/11/09 05/16/10 Unknown, Provider, PCP - General 05/17/10 02/07/11 Agustin Ramires MD [address] [place] [address] [place] [address] PCP - General 02/08/11 05/15/11 Kayleigh Peña PA [address] [facility] [address] [place] [address] PCP - General 05/16/11 08/19/11 Agustin Ramires MD [address] [place] [address] [place] [address] PCP - General 08/20/11 02/23/13 Lizbet Zhang FNP [address] [place] [address] PCP - General 02/24/13 03/13/20 documented as of this encounter
--- OUTSIDE RECORDS SUMMARY | 2024-03-23 12:41 | XMS_ITS | Encounter Summary ---
Author Organization [facility] Address [address] [place] [address] Care Team Providers Care Obstetrician And Gynaecologist Name Role Phone Avel Rivera MD Primary Care Provider Unav ailable Encounter Details Date Type Department Care Team (Late st Contact Info) Description 12/15/2007 Before PRISM Converted Visit (Maple) [facility] - Maple conversion [address] [place] [address] Avel Rivera MD Social History Tobacco Use Types Packs/Day Years Used Date Smoking Tobacco: Never Assessed Comments Unknown Sex and Gender Information Value Date Recorded Sex Assigned at Not on file Legal Sex Female 18:18 EST Gender Identity Female 02/14/2022 14:15 EST Sexual Orientation Not on file documented as of this encounter Progress Notes * Avel Rivera MD - 10/30/2008 0646 EDT [facility] PROGRESS/FOLLOWUP NOTE - 01/12/2008 PROBLEM Bronchitis, diabetes and hypertension. ANA M Jarquin is here for followup of recent bronchitis [...] 11:18 Avel Rivera MD P Job ID [id number] /[facility] Doc ID [id number] cc: * Avel Rivera MD - 10/30/2008 0513 EDT [facility] PROGRESS/FOLLOWUP NOTE - 12/15/2007 PROBLEM Cough. SUBJECTIVE Milka is here to evaluate acute illness with [...] four or five days. Signed by Avel Rviera MD 12/19/2007 17:31 Avel Rivera MD A Job ID [id number] A/[facility] Doc ID [id number] cc: documented in this encounter Plan of Treatment Not on file documented as of this encounter Visit Diagnoses Not on filedocumented in this encounter Care Teams Obstetrician And Gynaecologist Relationship Specialty Start Date End Date Avel Rivera MD PCP - General 09/03/08 07/10/09 documented as of this encounter
--- OUTSIDE RECORDS SUMMARY | 2024-03-23 12:41 | XMS_ITS | Encounter Summary ---
Author Organization [facility] Address [address] [place] [address] Care Team Providers Care Roll Inspector Name Role Phone Avel Rivera MD Primary Care Provider Unav ailable Encounter Details Date Type Department Care Team (Late st Contact Info) Description 06/14/2005 Before PRISM Converted Visit (Maple) [facility] - Maple conversion [address] [place] [address] Tiara Mendez MD [phone] [place] [address] Social History Tobacco Use Types Packs/Day Years Used Date Smoking Tobacco: Never Assessed Comments Unknown Sex and Gender Information Value Date Recorded Sex Assigned at Not on file Legal Sex Female 18:18 EST Gender Identity Female 02/14/2022 14:15 EST Sexual Orientation Not on file documented as of this encounter Progress Notes * Tad, Conv Professional Engineer - 03/17/2009 1088 EST [facility] PROGRESS/FOLLOWUP NOTE - 06/14/2005 SUBJECTIVE: Milka is here because she has been ill for the past week to two. She complains of nasal congestion, sore throat, headache, otalgia, and ???pressure in her lungs.?? She has not really been able to bring up anything when coughing. She has tried several ldvh-swz-uiolkto medications without much improvement. She also complains [...] 875 b.i.d. for ten days. Continue with nfuw-hlg-ahyamey medications. Problem #2: Left upper quadrant pain intermittently which is likely gastrointestinal in origin. PLAN: I will have her try either an H2 reva or PPI [id number] to see if her symptoms improve. Problem [...] Signed by Tiara Mendez MD 06/18/2005 18:37 Luke Dukes MD Tiara Mendez MD - Tiara Mendez MD P - clr Job ID: [id number] Document ID: [id number] cc: documented in this encounter Plan of Treatment Not on file documented as of this encounter Visit Diagnoses Not on filedocumented in this encounter Care Teams Roll Inspector Relationship Specialty Start Date End Date Avel Rivera MD PCP - General 09/03/08 07/10/09 documented as of this encounter
--- OUTSIDE RECORDS SUMMARY | 2024-03-23 12:41 | XMS_ITS | Encounter Summary ---
Author Organization [facility] Address [address] [place] [address] Care Team Providers Care Emergency Planning And Response Manager Name Role Phone Avel Rivera MD Primary Care Provider Unav ailable Encounter Details Date Type Department Care Team (Late st Contact Info) Description 03/09/[address] [address] Avel Rivera MD Hypertension; DM (Diabetes Mellitus) ([facility]) ([facility]); PPD Positive; IBS (Irritable Bowel Syndrome); Hyperlipidemia; [...] Hypertension Unspecified essential hypertension DM (diabetes mellitus) ([facility]) Type II or unspecified type diabetes mellitus [...] may reflect changes made after this encounter. MULTIVITAMINS (MULTIVITAMIN ORAL) Take 1 Tab by mouth daily before breakfast. BUTALBITAL/ASPIRI N/CAFFEINE (FIORINAL ORAL) Take by mouth [...] 05/04/2009 added in this encounter Care Teams Emergency Planning And Response Manager Relationship Specialty Start Date End Date Avel Rivera MD PCP - General 09/03/08 07/10/09 documented as of this encounter
--- OUTSIDE RECORDS SUMMARY | 2024-03-23 12:41 | XMS_ITS | Encounter Summary ---
Author Organization [facility] Address [address] [place] [address] Care Team Providers Care Take Down Inspector Name Role Phone Unknown, Provider Primary Care Provider Agustin Anna MD Primary Care Provider [phone] Kayleigh Peña Primary Care Provider [phone] Agustin Ramires MD Primary Care Provider [phone] Lizbet Zhang PREPARER MAKING DEPARTMENT Primary Care Provider [phone] Salome Mcarthur RESUME SPECIALIST Primary Care Provider [phone] Encounter Details Date Type Department Care Team (Late st Contact Info) Description 05/17/2010 Telephone [facility] [address] [place] [address] Montrell Jaeger MD [address] [place] [address] [address] [place] [address] Social History Tobacco Use Types [...] on filedocumented in this encounter Care Teams Take Down Inspector Relationship Specialty Start Date End Date Unknown, Provider, PCP - General 05/17/10 02/07/11 Agustin Ramires MD [address] [place] [phone] PCP - General 02/08/11 05/15/11 Kayleigh Peña PA [address] [place] [address] PCP - General 05/16/11 08/19/11 Agustin Ramires MD [address] [place] [address] PCP - General 08/20/11 02/23/13 Lizbet Zhang FNP [address] [place], [place] [id number] PCP - General 02/24/13 03/13/20 Salome Mcarthur NP [address] [facility], [place] [id number] PCP - General 03/14/20 documented as of this encounter
--- OUTSIDE RECORDS SUMMARY | 2024-03-23 12:41 | XMS_ITS | Encounter Summary ---
Author Organization [facility] Address [address] [place] [address] Care Team Providers Care Controller Operations And Hr Manager Name Role Phone Avel Rivera MD Primary Care Provider Unav ailable Encounter Details Date Type Department Care Team (Late st Contact Info) Description 06/02/2007 Before PRISM Converted Visit (Maple) [facility] - Maple conversion [address] [place] [address] Tiara Mendez MD [phone] [place] [address] Social History Tobacco Use Types Packs/Day Years Used Date Smoking Tobacco: Never Assessed Comments Unknown Sex and Gender Information Value Date Recorded Sex Assigned at Not on file Legal Sex Female 18:18 EST Gender Identity Female 02/14/2022 14:15 EST Sexual Orientation Not on file documented as of this encounter Progress Notes * Tad, Conv Family Worker - 12/29/2008 2429 EDT [facility] PROGRESS/FOLLOWUP NOTE - 06/02/2007 SUBJECTIVE comes in [...] 11:10 Tiara Mendez MD P Job ID [id number] T: 1:22 P/DIS Doc ID [id number] cc: P Job ID [id number] P/dis Doc ID [id number] cc: documented in this encounter Plan of Treatment Not on file documented as of this encounter Visit Diagnoses Not on filedocumented in this encounter Care Teams Controller Operations And Hr Manager Relationship Specialty Start Date End Date Avel Rivera MD PCP - General 09/03/08 07/10/09 documented as of this encounter
--- OUTSIDE RECORDS SUMMARY | 2024-03-23 12:41 | XMS_ITS | Encounter Summary ---
Author Organization [facility] Address [address] [place] [address] Care Team Providers Care Treating Engineer Helper Name Role Phone Unknown, Provider Primary Care Provider Unava ilable Reason for Visit * Reason Comments Other [...] Info) Description 05/18/2010 11:30 EST Office Visit [facility] ENT - [address] [address] Unknown, Provider, MD Jaeger, Montrell Holman MD [address] [place] [address] [address] LPRD (laryngopharyngeal reflux disease); Deviated [...] Montrell Jaeger MD - 05/23/2010 1635 EST [facility] - 05/18/2010 Kayleigh Peña PANEL MACHINE TENDER [address] [place] [address], [address] [place] [address] Dear Jessearnel: This is a consult from [...] - THANIA Job ID: SM Doc ID: [id number] Ext Doc ID: [id number] cc: TOPHER Mackey documented in this encounter Plan of Treatment Not on file documented as of this encounter Visit Diagnoses Diagnosis LPRD (laryngopharyngeal reflux disease) Other diseases of larynx Deviated nasal septum documented in this encounter Historical Medications * This list may reflect changes made after this encounter. metformin (GLUCOPHAGE) 1,000 mg tablet Take 1 Tablet by mouth 2 times daily with breakfast and dinner. [place]-3 Fatty Acids-Vitamin E (FISH OIL) 1,000 mg Cap Take by mouth daily. added in this encounter Care Teams Treating Engineer Helper Relationship Specialty Start Date End Date Unknown, Provider, PCP - General 05/17/10 02/07/11 documented as of this encounter
--- OUTSIDE RECORDS SUMMARY | 2024-03-23 12:41 | XMS_ITS | Encounter Summary ---
Author Organization [facility] Address [address] [place] [address] Care Team Providers Care Auto Service Instructor Name Role Phone Avel Rivera MD Primary Care Provider Unav ailable Encounter Details Date Type Department Care Team (Late st Contact Info) Description 10/05/2005 Before PRISM Converted Visit (Maple) [facility] - Maple conversion [address] [place] [address] Tiara Mendez MD [phone] [place] [address] Social History Tobacco Use Types Packs/Day Years Used Date Smoking Tobacco: Never Assessed Comments Unknown Sex and Gender Information Value Date Recorded Sex Assigned at Not on file Legal Sex Female 18:18 EST Gender Identity Female 02/14/2022 14:15 EST Sexual Orientation Not on file documented as of this encounter Progress Notes * Tad, Conv Supervisor Grounds - 04/01/2009 0953 EST [facility] PROGRESS/FOLLOWUP NOTE - 10/05/2005 SUBJECTIVE: Milka comes [...] We discussed possibly referring her to a setup operator but she would like to wait until [...] #2: Rosacea which is covered up by [employer] today. Trial of MetroGel 1% b.i.d. until clear. Explained that this will probably be an ongoing problem for her. PROBLEM #3: Diabetes. Continue with checking her blood sugars regularly and will check a [id number] at her convenience. PROBLEM #4: Hypertriglyceridemia. Check [...] Tiara Mendez MD 10/17/2005 19:19 Krishna Mendez, Luke Mendez MD Tiara Mendez MD - Tiara Mendez MD P - jennie Job ID: [id number] Document ID: [id number] cc: documented in this encounter Plan of Treatment Not on file documented as of this encounter Visit Diagnoses Not on filedocumented in this encounter Care Teams Auto Service Instructor Relationship Specialty Start Date End Date Avel Rivera MD PCP - General 09/03/08 07/10/09 documented as of this encounter
--- OUTSIDE RECORDS SUMMARY | 2024-03-23 12:41 | XMS_ITS | Encounter Summary ---
Author Organization [facility] Address [address] [place] [address] Care Team Providers Care Construction Framer Name Role Phone Avel Rivera MD Primary Care Provider Unav ailable Encounter Details Date Type Department Care Team (Late st Contact Info) Description 11/05/2007 Before PRISM Converted Visit (Maple) [facility] - Maple conversion [address] [place] [address] Avel Rivera MD Social History Tobacco Use Types Packs/Day Years Used Date Smoking Tobacco: Never Assessed Comments Unknown Sex and Gender Information Value Date Recorded Sex Assigned at Not on file Legal Sex Female 18:18 EST Gender Identity Female 02/14/2022 14:15 EST Sexual Orientation Not on file documented as of this encounter Progress Notes * Avel Rivera MD - 01/07/2009 1202 EDT [facility] PROGRESS/FOLLOWUP NOTE - 11/05/2007 PROBLEM Foot [...] 12:03 Avel Rivera MD P Job ID [id number] P/FELY Doc ID [id number] cc: cc: documented in this encounter Plan of Treatment Not on file documented as of this encounter Visit Diagnoses Not on filedocumented in this encounter Care Teams Construction Framer Relationship Specialty Start Date End Date Avel Rivera MD PCP - General 09/03/08 07/10/09 documented as of this encounter
--- OUTSIDE RECORDS SUMMARY | 2024-03-23 12:41 | XMS_ITS | Encounter Summary ---
Author Organization [facility] Address [address] [place] [address] Care Team Providers Care Chemical Educator Name Role Phone Agustin Ramires MD Primary Care Provider [phone] Unknown, Provider Primary Care Provider Unava ilable Agustin Ramires MD Primary Care Provider [phone] Kayleigh Peña Primary Care Provider + [phone] Agustin Ramires MD Primary Care Provider [phone] Lizbet Zhang LIFE CONSULTANT Primary Care Provider + [phone] Encounter Details Date Type Department Care Team (Late st Contact Info) Description 08/12/2009 Historical Results Only [facility] [place] [address] [address] Leland Boykin MD Social History Tobacco Use [...] (08/12/2009) 08/12/2009 08/14/2009 7:5 2 EDT Narrative [facility] - 08/16/2009 12:46 EDT ----- ------- Name: MILKA MENDIETA ?: 42 ?Age/Sex: 78/F ?Unit#: [id number] ? Loc: LAB.OPX ? Status: REG REF ?? Reg Date: 08/12/09 ? Pt.Phone Number: ? ----- ------- Specimen: [id number] ? STATUS: SOUT ?Spec Date:08/12/09 ? Physician Copies: ?Leland Boykin MD ?? Tissues: ? Urine (VOID) ? CPT: 84549 ?? Units: ??1 ----- ------- ?? NON PRODUCT MARKETING EXECUTIVE CYTOLOGY DIAGNOSIS Urine, voided: - No malignant [...] above diagnosis. Test Performed by [facility], [address] [place] [address] Director: Namrata Childs MD PHD ----- ------- Leland Boykin MD PATHOLOGY ORDERABLES Final Resul t [facility] documented in this encounter Visit Diagnoses Not on filedocumented in this encounter Care Teams Chemical Educator Relationship Specialty Start Date End Date Agustin Ramires MD [address] ,[facility] [address] [place] [address] PCP - General 07/11/09 05/16/10 Unknown, Provider, PCP - General 05/17/10 02/07/11 Agustin Ramires MD [facility] [address] [address] [place] [address] PCP - General 02/08/11 05/15/11 Kayleigh Peña PA [address] [facility] [address] [place] [address] PCP - General 05/16/11 08/19/11 Agustin Ramires MD [facility] [address] ,[facility] [address] [place] [address] PCP - General 08/20/11 02/23/13 Lizbet Zhang FNP [address] [place] [address] PCP - General 02/24/13 03/13/20 documented as of this encounter
--- OUTSIDE RECORDS SUMMARY | 2024-03-23 12:41 | XMS_ITS | Encounter Summary ---
Author Organization [facility] Address [address] [place] [address] Care Team Providers Care Retouching Operator Name Role Phone Avel Rivera MD Primary Care Provider Unav ailable Encounter Details Date Type Department Care Team (Late st Contact Info) Description 08/27/2007 Office Visit [facility] Ophthalmology - [place] [address] [place] [address] Tamica Maldonado MD [address] [place] [address] Discharge Disposition: Auto Discharge Social History [...] - 12/30/2008 0122 EDT DIVISION OF OPHTHALMOLOGY [facility] CONSULTATION - 08/27/2007 Adi Martinez MD [address] [place] [address] [address] [place] [address] Dear Adi: Thank you for referring Milka Corbett, who I saw as an emergency consultation on August 27, 2007. Asyou may recall, she noticed a sudden onset of [...] with today.Because Ms. Corbett comes from the [facility], she has asked if she may follow up with you following the laser and I think this is very reasonable.If you have any questions or concerns, please do not hesitate to contact me. Yours sincerely, Signed by Tamica Maldonado MD 09/04/2007 08:58 Tamica Maldonado MD [facility] - Retina and Vitreous Service [address] [place] [address] - Tamica Maldonado MD - DV Job ID: [id number] Doc ID: [id number] cc: Adi Martinez MD documented in this encounter Plan of Treatment Not on file documented as of this encounter Visit Diagnoses Not on filedocumented in this encounter Care Teams Retouching Operator Relationship Specialty Start Date End Date Avel Rivera MD PCP - General 09/03/08 07/10/09 documented as of this encounter
--- OUTSIDE RECORDS SUMMARY | 2024-03-23 12:41 | XMS_ITS | Encounter Summary ---
Author Organization [facility] Address [address] [place] [address] Care Team Providers Care Stripper Preliminary Name Role Phone Avel Rivera MD Primary Care Provider Unav ailable Encounter Details Date Type Department Care Team (Late st Contact Info) Description 05/22/2007 Before PRISM Converted Visit (Maple) [facility] - Maple conversion [address] [place] [address] Tiara Mendez MD [phone] [place] [address] Social History Tobacco Use Types Packs/Day Years Used Date Smoking Tobacco: Never Assessed Comments Unknown Sex and Gender Information Value Date Recorded Sex Assigned at Not on file Legal Sex Female 18:18 EST Gender Identity Female 02/14/2022 14:15 EST Sexual Orientation Not on file documented as of this encounter Progress Notes * Tad, Conv Strike Off Machine Operator - 02/16/2009 1242 EST [facility] PROGRESS/FOLLOWUP NOTE - 05/22/2007 ANA M Jarquin [...] 08:15 Tiara Mendez MD P Job ID [id number] [facility] Doc ID [id number] cc: documented in this encounter Plan of Treatment Not on file documented as of this encounter Visit Diagnoses Not on filedocumented in this encounter Care Teams Stripper Preliminary Relationship Specialty Start Date End Date Avel Rivera MD PCP - General 09/03/08 07/10/09 documented as of this encounter
--- OUTSIDE RECORDS SUMMARY | 2024-03-23 12:41 | XMS_ITS | Encounter Summary ---
Author Organization [facility] Address [address] [place] [address] Care Team Providers Care Marketing Production Specialist Name Role Phone Avel Rivera MD Primary Care Provider Unav ailable Encounter Details Date Type Department Care Team (Late st Contact Info) Description 07/28/2007 Before PRISM Converted Visit (Maple) [facility] - Maple conversion [address] [place] [address] Sharifa Britton, PROPELLER LAYOUT WORKER [address] [facility] [address] [place] [address] Social History Tobacco Use Types Packs/Day Years Used Date Smoking Tobacco: Never Assessed Comments Unknown Sex and Gender Information Value Date Recorded Sex Assigned at Not on file Legal Sex Female 18:18 EST Gender Identity Female 02/14/2022 14:15 EST Sexual Orientation Not on file documented as of this encounter Progress Notes * Sharifa Britton MD - 12/31/2008 0141 EDT [facility] PROGRESS/FOLLOWUP NOTE - 07/28/2007 ANA M [...] 08/04/2007 14:52 INDIRA Cruz - INDIRA Cruz [facility] Job ID: [id number] Document ID: [id number] cc: documented in this encounter Plan of Treatment Not on file documented as of this encounter Visit Diagnoses Not on filedocumented in this encounter Care Teams Marketing Production Specialist Relationship Specialty Start Date End Date Avel Rivera MD PCP - General 09/03/08 07/10/09 documented as of this encounter
--- OUTSIDE RECORDS SUMMARY | 2024-03-23 12:41 | XMS_ITS | Encounter Summary ---
Author Organization [facility] Address [address] [place] [address] Care Team Providers Care Fundraising Consultant Name Role Phone Avel Rivera MD Primary Care Provider Unav ailable Reason for Visit * Reason Onset Date Comments Medications Refill 05/04/2009 robert, please call milka that this has been ordered Encounter Details Date Type Department Care Team (Late st Contact Info) Description 05/04/[address] [address] Avel Rivera MD Medications Refill (robert, please [...] Refills Last Filled Start Date End Date amitriptyline (ELAVIL) 100 mg tablet Take 1 [...] documented as of this encounter Care Teams Fundraising Consultant Relationship Specialty Start Date End Date Avel Rivera MD PCP - General 09/03/08 07/10/09 documented as of this encounter
--- OUTSIDE RECORDS SUMMARY | 2024-03-23 12:41 | XMS_ITS | Encounter Summary ---
Author Organization [facility] Address [address] [place] [address] Care Team Providers Care Stationary Equipment Mechanic Name Role Phone Agustin Ramires MD Primary Care Provider [phone] Encounter Details Date Type Department Care Team (Late st Contact Info) Description 04/21/2010 Abstract Used for ABSTRACTING Data [phone] Agustin Ramires MD [address] [place] [address] Social History Tobacco Use Types Packs/Day [...] on filedocumented in this encounter Care Teams Stationary Equipment Mechanic Relationship Specialty Start Date End Date Agustin Ramires MD [address] [place] [address] PCP - General 07/11/09 05/16/10 documented as of this encounter
--- OUTSIDE RECORDS SUMMARY | 2024-03-23 12:41 | XMS_ITS | Encounter Summary ---
Author Organization [facility] Address [address] [place] [address] Care Team Providers Care Kier Boiler Name Role Phone Agustin Ramires MD Primary Care Provider [phone] Avel Rivera MD Primary Care Provider Unav ailable Unknown, Provider Primary Care Provider Unava ilable Agustin Ramires MD Primary Care Provider [phone] Kayleigh Peña Primary Care Provider [phone] Agustin Ramires MD Primary Care Provider [phone] Lizbet Zhang LUMP ROOM SUPERVISOR Primary Care Provider + [phone] Encounter Details Date Type Department Care Team (Late st Contact Info) Description 05/10/2009 Historical Results Only [facility] - Main [place] [address] [place] [address] Leland Boykin MD Social History Tobacco Use [...] (05/10/2009) 05/10/2009 05/10/2009 11: 28 EST Narrative [facility] - 05/11/2009 13:51 EST ----- ------- Name: MILKA MENDIETA ?: 42 ?Age/Sex: 78/F ?Unit#: [id number] ? Loc: SDS ? Status: DEP SDC ?? Reg Date: 05/10/09 ? Pt.Phone Number: ? ----- ------- Specimen: [id number] ?STATUS: SOUT ?Spec Date:05/10/09 ? Physician Copies: ?Leland Boykin MD ?? Tissues: A ?? Urinary Tract (BLADDER DOME) ? CPT: 28878 ?? Units: ??1 ?FINAL DIAGNOSIS ? Bladder, [...] above diagnosis. Test Performed by [facility], [address] [place], [place] [id number] Spinneret Person: Namrata Childs MD PHD ----- ------- Leland Boykin MD PATHOLOGY ORDERABLES Final Resul t [facility] documented in this encounter Visit Diagnoses Not on filedocumented in this encounter Care Teams Kier Boiler Relationship Specialty Start Date End Date Agustin Ramires MD [address] [address] PCP - General 07/11/09 05/16/10 Avel Rivera MD PCP - General 09/03/08 07/10/09 Unknown, MD Nkechi PCP - General 05/17/10 02/07/11 Agustin Ramires MD [address],[facility] [address] [place] [address] PCP - General 02/08/11 05/15/11 Kayleigh Peña PA [address] [place] [address] PCP - General 05/16/11 08/19/11 Agustin Ramires MD [address],[facility] 2 [place] [address] PCP - General 08/20/11 02/23/13 Lizbet Zhang, INDIRA [address] [place], [place] [address] PCP - General 02/24/13 03/13/20 documented as of this encounter
--- OUTSIDE RECORDS SUMMARY | 2024-03-23 12:41 | XMS_ITS | Encounter Summary ---
Author Organization [facility] Address [address] [place] [address] Care Team Providers Care Batch Plant Operator Name Role Phone Agustin Ramires MD Primary Care Provider [phone] Unknown, Provider Primary Care Provider Unava ilable Agustin Ramires MD Primary Care Provider [phone] Kayleigh Peña Primary Care Provider [phone] Agustin Ramires MD Primary Care Provider [phone] Lizbet Zhang HISTORIOGRAPHY PROFESSOR Primary Care Provider + [phone] Encounter Details Date Type Department Care Team (Late st Contact Info) Description 05/15/2010 Historical Results Only [facility] [place] [facility] - Main [place] [address] [place], [place] [address] Jens Deleon MD [facility] [address] [place] [address] Social History Tobacco Use Types [...] (05/15/2010) 05/15/2010 05/15/2010 12: 46 EST Narrative [facility] - 05/16/2010 10:58 EST ----- ------- Name: MILKA MENDIETA ?: 42 ?Age/Sex: 78/F ?Unit#: [id number] ? Loc: END ? Status: DEP CLI ?? Reg Date: 05/15/10 ? Pt.Phone Number: ? ----- ------- Specimen: [id number] ?STATUS: SOUT ?Spec Date:05/15/10 ? Physician Copies: ?Jens Deleon MD ? Tissues: A ?? Gastrointestinal Tract (PROXIMAL ASCENDING COLON) ?Kayleigh PeñaMelida CPT: 67210 ?? Units: ??1 ?FINAL DIAGNOSIS ? Proximal [...] by [facility], [address] [place] [address] Cable Spooler: Namrata Childs MD PHD ----- ------- us Jens Deleon MD PATHOLOGY ORDERABLES Final Resul t [facility] documented in this encounter Visit Diagnoses Not on filedocumented in this encounter Care Teams Batch Plant Operator Relationship Specialty Start Date End Date Agustin Ramires MD [address] [address] PCP - General 07/11/09 05/16/10 Unknown, MD Nkechi PCP - General 05/17/10 02/07/11 Agustin Ramires MD [address] [place] [address] PCP - General 02/08/11 05/15/11 Kayleigh Peña PA [address] [place] [address] PCP - General 05/16/11 08/19/11 Agustin Ramires MD [address] ,[facility] [address] [place] [address] PCP - General 08/20/11 02/23/13 Lizbet Zhang, INDIRA [address] [place], [place] [address] PCP - General 02/24/13 03/13/20 documented as of this encounter
--- OUTSIDE RECORDS SUMMARY | 2024-03-23 12:41 | XMS_ITS | Encounter Summary ---
Author Organization [facility] Address [address] [place] [address] Care Team Providers Care Extrusion Machine Operator Name Role Phone Agustin Ramires MD Primary Care Provider [phone] Avel Rivera MD Primary Care Provider Unav ailable Unknown, Provider Primary Care Provider Unava ilable Agustin Ramires MD Primary Care Provider [phone] Kayleigh Peña Primary Care Provider [phone] Agustin Ramires MD Primary Care Provider [phone] Lizbet Zhang INSPECTOR FLOOR Primary Care Provider + [phone] Encounter Details Date Type Department Care Team (Late st Contact Info) Description 04/29/2009 Historical Results Only [facility] Lab - Main [place] [address] [place] [address] Leland Boykin MD Social History Tobacco Use [...] (04/29/2009) 04/29/2009 05/02/2009 10: 03 EST Narrative [facility] - 05/03/2009 9:10 EST ----- ------- Name: MILKA MENDIETA ?: 42 ?Age/Sex: 78/F ?Unit#: [id number] ? Loc: LAB.OPX ? Status: REG REF ?? Reg Date: 04/29/09 ? Pt.Phone Number: ? ----- ------- Specimen: [id number] ?STATUS: SOUT ?Spec Date:04/29/09 ? Physician Copies: ?Leland Boykin MD ?? Tissues: ? Urine (CLEAN CATCH) ? CPT: 64535 ?? Units: ??1 ----- ------- ?? NON TEACHERS' ASSISTANT CYTOLOGY DIAGNOSIS Urine,voided: Benign squamous cells and [...] confirmed the above diagnosis. Test Performed by [facility], [address] [place] [address] Garnett Mechanic: Namrata Childs MD PHD ----- ------- Leland Boykin MD PATHOLOGY ORDERABLES Final Resul t [facility] documented in this encounter Visit Diagnoses Not on filedocumented in this encounter Care Teams Extrusion Machine Operator Relationship Specialty Start Date End Date Agustin Ramires MD [address] [address] PCP - General 07/11/09 05/16/10 Avel Rivera MD PCP - General 09/03/08 07/10/09 Deandre, MD Nkechi PCP - General 05/17/10 02/07/11 Agustin Ramires MD [address] [address] PCP - General 02/08/11 05/15/11 Kayleigh Peña PA [address] [facility] [address] [place] [address] PCP - General 05/16/11 08/19/11 Agustin Ramires MD [facility] [address] [address] PCP - General 08/20/11 02/23/13 Lizbet Zhang FNP [address] [place], [place] [address] PCP - General 02/24/13 03/13/20 documented as of this encounter
--- OUTSIDE RECORDS SUMMARY | 2024-03-23 12:41 | XMS_ITS | Encounter Summary ---
Author Organization [facility] Address [address] [place] [address] Care Team Providers Care Design Printing Machine Set Up Operator Name Role Phone Avel Rivera MD Primary Care Provider Unav ailable Encounter Details Date Type Department Care Team (Late st Contact Info) Description 05/06/2007 Before PRISM Converted Visit (Maple) [facility] - Maple conversion [address] [place] [address] Maria Elena Falcon MD Social History Tobacco [...] Elena Falcon MD - 02/15/2009 0659 EST [facility] PROGRESS/FOLLOWUP NOTE - 05/06/2007 ANA M Jarquin [...] Maria Elena Falcon MD P Job ID [id number] T: 7:21 A/KAMALA Doc ID [id number] cc: ctd/kamala Doc ID [id number] cc: documented in this encounter Plan of Treatment Not on file documented as of this encounter Visit Diagnoses Not on filedocumented in this encounter Care Teams Design Printing Machine Set Up Operator Relationship Specialty Start Date End Date Avel Rivera MD PCP - General 09/03/08 07/10/09 documented as of this encounter
--- OUTSIDE RECORDS SUMMARY | 2024-03-23 12:41 | XMS_ITS | Encounter Summary ---
Author Organization [facility] Address [address] [place] [address] Care Team Providers Care Kitchenhand Name Role Phone Avel Rivera MD Primary Care Provider Unav ailable Reason for Visit * Reason Onset Date Comments Other 05/18/2009 Encounter Details Date Type Department Care Team (Late st Contact Info) Description 05/18/[address] [id number] Avel Rivera MD Other Social History Tobacco [...] was sent in. She is checking with [facility]. * Telephone Encounter - Janusz Stefany - 05/18/2009 1310 EST PATIENT IS STILL WAITING FOR THIS TO BE CALLED INTO [facility]. THEY ARE THERE WAITING NOW FOR THE AMITRIPTYLENE. * Telephone Encounter - Christina Rudd - 05/18/2009 1214 EST Pt called from [facility] saying her Amitriptyline has not been called in there. She can be reached at [phone] ext [phone]. documented in this encounter Plan of Treatment Not on file documented as of this encounter Visit Diagnoses Not on filedocumented in this encounter Discontinued Medications Medication Sig Discontinue Reason Start Date End Da te amitriptyline (ELAVIL) 100 mg tablet Take 1 Tab by mouth at bedtime. Reorder 05/04/2009 05/18/2009 documented as of this encounter Care Teams Kitchenhand Relationship Specialty Start Date End Date Avel Rivera MD PCP - General 09/03/08 07/10/09 documented as of this encounter
--- OUTSIDE RECORDS SUMMARY | 2024-03-23 12:41 | XMS_ITS | Encounter Summary ---
Author Organization [facility] Address [address] [place] [address] Care Team Providers Care Complaint Investigator Name Role Phone Avel Rivera MD Primary Care Provider Unav ailable Encounter Details Date Type Department Care Team (Late st Contact Info) Description 01/27/2007 Before PRISM Converted Visit (Maple) [facility] - Maple conversion [address] [place] [address] Tiara Mendez MD [phone] [place] [address] Social History Tobacco Use Types Packs/Day Years Used Date Smoking Tobacco: Never Assessed Comments Unknown Sex and Gender Information Value Date Recorded Sex Assigned at Not on file Legal Sex Female 18:18 EST Gender Identity Female 02/14/2022 14:15 EST Sexual Orientation Not on file documented as of this encounter Progress Notes * Tad, Alison Cut File Clerk - 02/15/20091955 EST [facility] PROGRESS/FOLLOWUP NOTE - 01/27/2007 ANA M Jarquin [...] 15:02 Tiara Mendez MD P Job ID [id number] T: 12:49 P/jg Doc ID [id number] cc: Tiara Mendez MD P Job ID [id number] P/jg Doc ID [id number] cc: documented in this encounter Plan of Treatment Not on file documented as of this encounter Visit Diagnoses Not on filedocumented in this encounter Care Teams Complaint Investigator Relationship Specialty Start Date End Date Avel Rivera MD PCP - General 09/03/08 07/10/09 documented as of this encounter
--- OUTSIDE RECORDS SUMMARY | 2024-03-23 12:41 | XMS_ITS ---
Author Organization Unknown Address [address] [place] [address] [phone] Phone Care Team Providers Care Freezer Person Name Role Phone HANSA RODRIGUEZ MD Attending Unavailable JOHN PETERSON Primary Unavailable Results URINALYSIS ROUTINE - Collect Date/Time: 11/17/2020 15:00 [facility] ID: [id number] - [id number] [address] [place], [place], [address] LOINC: Test Value Unit Reference Range Code Code System Flag COLLECTION MODE: CLEAN CATCH Color ORANGE yellow 5778-6 LOINC Appearance HAZY clear 5767-9 LOINC Glucose urine DNR negative mg/dl 61594-8 LOINC Bilirubin DNR negative 5770-3 LOINC Ketones DNR negative mg/dl 2514-8 LOINC Spec gravity DNR 1.003 - 1.030 5811-5 LOINC pH urine DNR 5.0 - 7.0 2756-5 LOINC Protein DNR negative mg/dl 63298-3 LOINC Urobilinogen DNR <or= 1 EU/dl 53533-0 LOINC Nitrite DNR negative 5802-4 LOINC Blood DNR negative 5794-3 LOINC Leukocytes DNR negative 89785-4 LOINC MICROSCOPIC* INDICATED WBCs 25-100 0-5 / hpf 67263-0 LOINC RBCs 5-10 0-5 / hpf 80462-1 LOINC Epith cells none 0-5 / hpf 01700-8 LOINC Crystals none none Bacteria large none Mucus none none 8247-9 LOINC Casts none none /lpf 70432-8 LOINC Other 95617-6 LOINC CORRECTED CORRECTED Social History Type Status Start Date End Date Code Code Syst em Smoking History Never smoker (Never Smoked) 880771787 SNOMED CT Sex Female Medications Medication Start Date End Date Route Frequency Dose Code Code System Medication Instructions Home Meds Amitriptyline 50MG Oral Tablet 08/20/2019 01/02/2022 ORAL BEDTIME 50 MILLIGRAMS 849853 RxNorm TAKE 50 MILLIGRAMS ORAL BEDTIME Atorvastatin Calcium 20MG Oral Tablet 08/20/2019 Unknown ORAL BEDTIME 20 MILLIGRAMS 123416 RxNorm TAKE 20 MILLIGRAMS ORAL BEDTIME Fish Oil 1000MG Oral Capsule, Liquid Filled 08/20/2019 03/18/2024 ORAL DAILY 3 CAPSULE 292705 RxNorm TA KE 3 CAPSULE ORAL DAILY Gabapentin 800MG Oral Tablet 08/20/2019 03/18/2024 ORAL TWICE A DAY 1 TABLET 553792 RxNorm TAKE 1 TABLET ORAL TWICE A DAY Lisinopril 20MG Oral Tablet 08/20/2019 03/18/2024 ORAL DAILY 20 MILLIGRAMS 591560 RxNorm TAKE 20 MILLIGRAMS ORAL DAILY Loratadine 10MG Oral Tablet 08/20/2019 01/02/2022 ORAL DAILY 10 MILLIGRAMS 771636 RxNorm TAKE 10 MILLIGRAMS ORAL DAILY Multiple Vitamin Formula Oral Tablet 08/20/2019 03/18/2024 ORAL DAILY 1 unit(s) 9635515 RxNorm TAKE 1 E ACH ORAL DAILY Pramipexole Dihydrochlorid e 0.125MG Oral Tablet 08/20/2019 09/30/2023 ORAL BEDTIME 2 TABLET 755291 RxNorm TAKE 2 TABLET ORAL BEDTIME Probiotic 250MG Oral Capsule 08/20/2019 01/02/2022 ORAL DAILY 3 TABLET 796679 RxNorm TAKE 3 TABLET ORAL DAILY glipiZIDE 10MG Oral Tablet, Extended Release 08/20/2019 Unknown ORAL DAILY 10 MILLIGRAMS 180804 RxNorm TAKE 10 MILLIGRAMS ORAL DAILY metFORMIN HCl 1000MG Oral Tablet 08/20/2019 Unknown ORAL TWICE A DAY WITH FOOD 1000 MILLIGRAMS 546928 RxNorm TAKE 1000 MILLIGRAMS ORAL TWICE A DAY WITH FOOD Cephalexin 500MG Oral Tablet 08/20/2019 01/02/2022 ORAL THREE TIMES A DAY 1 TABLET 175856 RxNorm TAKE 1 TABLET ORAL THREE TIMES A DAY Keflex 500MG Oral Capsule 01/02/2022 09/30/2023 ORAL THREE TIMES A DAY 1 CAPSULE 595021 RxNorm TAKE 1 CAPSULE ORAL THREE TIMES A DAY Nystatin 502795S/1ML Oral Suspension 01/02/2022 09/30/2023 ORAL FOUR TIMES A DAY 5 mL 301493 RxNorm TAKE 5 mL ORAL FOUR TIMES A DAY Cephalexin 500MG Oral Tablet 03/17/2024 03/19/2024 ORAL TWICE A DAY 1 TABLET 714968 RxNorm TAKE 1 TABLET ORAL TWICE A DAY x 7 days Acetaminophen 500MG Oral Tablet 03/18/2024 03/18/2024 ORAL NEEDED EVERY 6 HOURS 2 TABLET 229302 RxNorm TAKE 2 TABLET (OR 3 TABLETS regular strength 325mg) ORAL EVERY 6 HOURS FOR 1-2 DAYS THEN NEEDED FOR Fever/Pain (NEXT DOSES 6AM AND 12 NOON) Ibuprofen 200MG Oral Tablet 03/18/2024 03/18/2024 ORAL EVERY 6 HOURS 2 TABLET 203079 RxNorm TAKE 2 TABLET ORAL EVERY 6 HOURS FOR 24 HOURS THEN NEEDED. (NEXT DOSES at 4AM AND 10AM) Aspirin 81MG Oral Tablet, Enteric Coated 03/19/2024 Unknown ORAL DAILY 81 MILLIGRAMS 460077 RxNorm TAKE 81 MILLIGRAMS ORAL DAILY Carvedilol 6.25MG Oral Tablet 03/19/2024 Unknown ORAL TWICE A DAY 6.25 MILLIGRAMS 19990607 RxNorm TAKE 6.25 MILLIGRAMS ORAL TWICE A DAY Fish Oil [place]-3 1000 MG Oral Capsule, Liquid Filled 03/19/2024 Unknown ORAL DAILY 1000 MG RxNorm TAKE 10 00 MG ORAL DAILY Gabapentin 600MG Oral Tablet 03/19/2024 Unknown ORAL TWICE A DAY 600 MILLIGRAMS 801952 RxNorm TAKE 600 MILLIGRAMS ORAL TWICE A DAY Lisinopril 10MG Oral Tablet 03/19/2024 Unknown ORAL DAILY 10 MILLIGRAMS 502555 RxNorm TAKE 10 MILLIGRAMS ORAL DAILY Multiple [...] Tablet 03/19/2024 Unknown ORAL BEDTIME 0.5 MILLIGRAMS 633713 RxNorm TAKE 0.5 MILLIGRAMS ORAL BEDTIME Ventolin HFA 0.09MG/1Actuat ion Inhalation Suspension 03/19/2024 Unknown INHAL ATION NEEDED EVERY 4 HOURS 2 unit(s) 326991 RxNorm 2 EACH INHALATION NEEDED EVERY 4 HOURS Victoza 6MG/1ML Subcutaneous Solution 03/19/2024 Unknown SUBCU TANEO US 1.8 MILLILITERS 740715 RxNorm INJECT 1.8 MILLILITERS SUBCUTANEOU S Cefdinir [...] Code Code System URINARY TRACT INFECTION active 275520 05 SNOMED-CT HYPOTENSION active 46952588 SNOMED-C T HYPOKALEMIA active 44838280 SNOMED-C T SEPSIS active 38776162 SNOMED-CT CIRRHOSIS - NON-ALCOHOLIC 01/02/2022 resolved 266 958160 SNOMED-CT HTN 08/20/2019 resolved 38526543 SNOMED-CT HIGH CHOLESTEROL 10/01/2023 resolved 87202683 SN OMED-CT PERSONAL HISTORY OF BLADDER CA 08/20/2019 resolved 929965224 SNOMED-CT NON-INSULIN DEPENDENT DIABETES MELLITUS 08/20/2019 resolved 84343376 SNOMED-CT 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
--- OUTSIDE RECORDS SUMMARY | 2024-03-23 12:41 | XMS_ITS | Encounter Summary ---
Author Organization [facility] Address [address] [place] [address] Care Team Providers Care Laundry Technician Name Role Phone Unavailable Primary Care Provider Unavailabl e Encounter Details Date Type Department Care Team (Latest Contact Info) Description 06/24/2008 23:22 EDT Hospital Encounter [facility] - Other [address] [place] [address] Anjel De La Torre MD Discharge Disposition: [...]
--- OUTSIDE RECORDS SUMMARY | 2024-03-23 12:41 | XMS_ITS | Encounter Summary ---
Author Organization [facility] Address [address] [place] [address] Care Team Providers Care Equipment Maintenance Engineer Name Role Phone Avel Rivera MD Primary Care Provider Unav ailable Encounter Details Date Type Department Care Team (Late st Contact Info) Description 07/01/2006 Before PRISM Converted Visit (Maple) [facility] - Maple conversion [address] [place] [address] Tiara Mendez MD [phone] [place] [address] Social History Tobacco Use Types Packs/Day Years Used Date Smoking Tobacco: Never Assessed Comments Unknown Sex and Gender Information Value Date Recorded Sex Assigned at Not on file Legal Sex Female 18:18 EST Gender Identity Female 02/14/2022 14:15 EST Sexual Orientation Not on file documented as of this encounter Progress Notes * Tad, Conv Neon Pumper - 02/08/2009 1017 EST [facility] PROGRESS/FOLLOWUP NOTE - 07/01/[address] Corbett [...] the one her friend went to in [place]. 3. Hypertension, excellently controlled at present. She [...] Signed by Tiara Mendez MD 07/07/2006 20:04 Krishna Mendez, MDDebpablo Mendez MD Tiara Mendez MD P Job ID [id number] A/lt Doc ID [id number] cc: documented in this encounter Plan of Treatment Not on file documented as of this encounter Visit Diagnoses Not on filedocumented in this encounter Care Teams Equipment Maintenance Engineer Relationship Specialty Start Date End Date Avel Rivera MD PCP - General 09/03/08 07/10/09 documented as of this encounter
--- OUTSIDE RECORDS SUMMARY | 2024-03-23 12:41 | XMS_ITS | Encounter Summary ---
Author Organization [facility] Address [address] [place] [address] Care Team Providers Care Oracle Obiee Developer Name Role Phone Avel Rivera MD Primary Care Provider Unav ailable Reason for Referral * Consult, Test and Treat (Routine) - Closed Specialty Diagnoses / Procedures Referred By Contac t Referred To Contact Diagnoses Vertigo Sprain of lumbar region Avel Rivera MD Referral ID Status Reason Start Date Expiration [...] Info) Description 06/06/2009 13:30 EST Office Visit [facility] [address] [address] Avel Rivera MD Vertigo; Hypertension; DM (diabetes mellitus) (CMS-HCC) ([facility]); Hyperlipidemia; Lumbar sprain and strain Social History [...] Refills Last Filled Start Date End Date clonazepam (KLONOPIN) 0.5 mg tablet Take 1 [...] Avel Rivera MD - 06/08/2009 0710 EST [facility] PROGRESS/FOLLOWUP NOTE - 06/06/2009 PROBLEM: Vertigo, [...] - KATERIN Job ID: SM Doc ID: [id number] Ext Doc ID: [id number] cc: * Avel Rivera MD - 06/06/2009 [...] Hypertension Unspecified essential hypertension DM (diabetes mellitus) ([facility]) Type II or unspecified type diabetes mellitus [...] documented as of this encounter Care Teams Oracle Obiee Developer Relationship Specialty Start Date End Date Avel Rivera MD PCP - General 09/03/08 07/10/09 documented as of this encounter
--- OUTSIDE RECORDS SUMMARY | 2024-03-23 12:41 | XMS_ITS | Encounter Summary ---
Author Organization [facility] Address [address] [place] [address] Care Team Providers Care Site Head Name Role Phone Avel Rivera MD Primary Care Provider Unav ailable Encounter Details Date Type Department Care Team (Late st Contact Info) Description 06/17/2006 Before PRISM Converted Visit (Maple) [facility] - Maple conversion [address] [place] [address] Tiara Mendez MD [phone] [place] [address] Social History Tobacco Use Types Packs/Day Years Used Date Smoking Tobacco: Never Assessed Comments Unknown Sex and Gender Information Value Date Recorded Sex Assigned at Not on file Legal Sex Female 18:18 EST Gender Identity Female 02/14/2022 14:15 EST Sexual Orientation Not on file documented as of this encounter Progress Notes * Tad, Conv Quarry Worker - 02/08/2009 1252 EST [facility] PROGRESS/FOLLOWUP NOTE - 06/17/2006 ANA M Jarquin [...] a referral to the sleep clinic at [facility] for further evaluation and decide whether a [...] Tiara Mendez MD 06/23/2006 12:40 Krishna Mendez, [facility] MD Tiara Mendez MD P Job ID [id number] Sharron/nubia Doc ID [id number] cc: \* MERGEFORMAT Tiara Mendez MD P Job ID [id number] Sharron/nubia Doc ID [id number] cc: documented in this encounter Plan of Treatment Not on file documented as of this encounter Visit Diagnoses Not on filedocumented in this encounter Care Teams Site Head Relationship Specialty Start Date End Date Avel Rivera MD PCP - General 09/03/08 07/10/09 documented as of this encounter
--- OUTSIDE RECORDS SUMMARY | 2024-03-23 12:41 | XMS_ITS | Encounter Summary ---
Author Organization [facility] Address [address] [place] [address] Care Team Providers Care Scrap Collector Name Role Phone Avle Rivera MD Primary Care Provider Unav ailable Encounter Details Date Type Department Care Team (Late st Contact Info) Description 06/24/2008 Before PRISM Converted Visit (Maple) [facility] - Maple conversion [address] [place] [address] Dhruv Milian MD Social History Tobacco Use Types Packs/Day [...] MENDIETA, MILKA F ? Accession #: ? [id number] ? : ? 1940 (Age: 68) ??F ? Collect Date: ? 06/24/2008 ? Location: ? [facility] ? Receive Date: ? 06/24/2008 ? Provider: DHRUV MILIAN MD ? Copy to: CRYSTAL RATLIFF MD ? Final Pathologic Diagnosis: ? A. ??Bladder, base of previous tumor, biopsies ([facility] [id number] A D1-D2; ? 2008): ? 1. 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 dystrophic calcification and reactive change. See comment. ? 2. ? Muscularis propria is identified. ? B. ?? Bladder, inferior to main tumor, biopsy ([facility] [id number]; B D1-D2; ? 2008) ? 1. ?? Urothelial hyperplasia with chronic inflammation and reactive ? epithelial changes. ??See ? comment. ? 2. ?? Muscularis propria is identified. ? C. ?Bladder, tumor, resection ([place] [id number]; 03/19/2008): ? 1. ?? Low grade papillary [...] diagnosis. ? Specimen(s) Received: ? OSLP [facility] [id number] (4), [id number] (1) ? Clinical History: ? Bladder cancer ? Gross Description: ? Five slides are received for review from [facility], one each labelled [id number] A D1, [id number] A D2, [id number] B D1, [id number] B D2, ? [id number]. ? End of Report ? [facility] 06/24/2008 06/24/2008 14: 46 EDT us Dhruv Milian MD PATHOLOGY ORDERABLES Final Resul t Performing Organization Address City/State/[facility] Co de Phone Number [facility] [address] [place] [address] documented in this encounter Visit Diagnoses Not on filedocumented in this encounter Care Teams Scrap Collector Relationship Specialty Start Date End Date Avel Rivera MD PCP - General 09/03/08 07/10/09 documented as of this encounter
[2024-03-23 14:58] LABS: Anion Gap 8.4 mmol/L (3-11); BUN 20 mg/dL (7-18); CO2 27.6 mmol/L (21.0-32.0); Calcium 9.6 mg/dL (8.5-10.1); Chloride 104 mmol/L (98-107); Estimated GFR 56.25 (mL/min/1.73m2); Glucose 141 mg/dL (74-106); Potassium 4.4 mmol/L (3.5-5.1); Sodium 140 mmol/L (136-145)
== END 2024-03-23 12:27 | disposition home or self-care (01) ==
LOC: NCHCN 12:26
PROVIDERS: PCP Nurse Practitioner Family; Visit Provider Family Medicine
DX: E87.6 Hypokalemia (principal)
CPT/HCPCS: 80048

== ENCOUNTER 2024-04-16 15:11 | Outpatient (REF) | payer MEDICARE, SELFPAY ==
--- OUTSIDE RECORDS SUMMARY | 2024-04-16 15:32 | XMS_ITS ---
Author Organization Unknown Address [address] [place] [address] [phone] Phone Care Team Providers Care Engineering Test Mechanic Name Role Phone LYNN DANIELLE Registered Nurse Unavailable NOLAN Grimaldo Attending Unavailable JORGE LUIS [facility] Unavailable JOHN Guaman Primary Unavailable UNLISTED PROVIDER - REQUESTED Xhandoff Un available Social History Type Status Start Date End Date Code Code Syst em Smoking History Never smoker (Never Smoked) 225009101 SNOMED CT Sex Female Vital Signs Vital Sign Value Unit Calliham Value Calliham Unit Date/Time Recent/Initial? Code Code System Body Mass Index 25.51 kg/m2 01/02/2022 10:53 Initial 23709 -5 [facility] Systolic Blood Pressure 165 mm[Hg] 01/02/2022 10:53 Initial 8480- 6 [facility] Diastolic Blood Pressure 66 mm[Hg] 01/02/2022 10:53 Initial 8462- 4 [facility] Body Surface Area 1.62 m2 01/02/2022 10:53 Initial 3140- 1 LOINC Height 154.940 0 cm 61.00 in 01/02/2022 10:53 Initial 8302- 2 INC O2 Saturation 94 % 2021 10:53 Initial 74018 -5 [facility] Pulse 106.0 /min 01/02/2022 10:53 Initial 8867- 4 LOINC Respiration 19 /min 01/03/20 10:53 Initial 9279- 1 LOINC Temperature 35.6 Carolann 96.1 F 01/03/20 10:53 Initial 8310- 5 LOINC Weight 61.23 kg 135.00 lbs 01/02/2022 10:53 Initial 94532 -7 [facility] Medications Medication Start Date End Date Route Frequency Dose Code Code System Medication Instructions Home Meds Amitriptyline 50MG Oral Tablet 08/20/2019 01/02/2022 ORAL BEDTIME 50 MILLIGRAMS 025327 RxNorm TAKE 50 MILLIGRAMS ORAL BEDTIME Atorvastatin Calcium 20MG Oral Tablet 08/20/2019 Unknown ORAL BEDTIME 20 MILLIGRAMS 205054 RxNorm TAKE 20 MILLIGRAMS ORAL BEDTIME Fish Oil 1000MG Oral Capsule, Liquid Filled 08/20/2019 03/18/2024 ORAL DAILY 3 CAPSULE 529147 RxNorm TA KE 3 CAPSULE ORAL DAILY Gabapentin 800MG Oral Tablet 08/20/2019 03/18/2024 ORAL TWICE A DAY 1 TABLET 406475 RxNorm TAKE 1 TABLET ORAL TWICE A DAY Lisinopril 20MG Oral Tablet 08/20/2019 03/18/2024 ORAL DAILY 20 MILLIGRAMS 593254 RxNorm TAKE 20 MILLIGRAMS ORAL DAILY Loratadine 10MG Oral Tablet 08/20/2019 01/02/2022 ORAL DAILY 10 MILLIGRAMS 577586 RxNorm TAKE 10 MILLIGRAMS ORAL DAILY Multiple Vitamin Formula Oral Tablet 08/20/2019 03/18/2024 ORAL DAILY 1 unit(s) 5862467 RxNorm TAKE 1 E ACH ORAL DAILY Pramipexole Dihydrochlorid e 0.125MG Oral Tablet 08/20/2019 09/30/2023 ORAL BEDTIME 2 TABLET 048402 RxNorm TAKE 2 TABLET ORAL BEDTIME Probiotic 250MG Oral Capsule 08/20/2019 01/02/2022 ORAL DAILY 3 TABLET 276434 RxNorm TAKE 3 TABLET ORAL DAILY glipiZIDE 10MG Oral Tablet, Extended Release 08/20/2019 Unknown ORAL DAILY 10 MILLIGRAMS 912853 RxNorm TAKE 10 MILLIGRAMS ORAL DAILY metFORMIN HCl 1000MG Oral Tablet 08/20/2019 Unknown ORAL TWICE A DAY WITH FOOD 1000 MILLIGRAMS 711189 RxNorm TAKE 1000 MILLIGRAMS ORAL TWICE A DAY WITH FOOD Cephalexin 500MG Oral Tablet 08/20/2019 01/02/2022 ORAL THREE TIMES A DAY 1 TABLET 487888 RxNorm TAKE 1 TABLET ORAL THREE TIMES A DAY Keflex 500MG Oral Capsule 01/02/2022 09/30/2023 ORAL THREE TIMES A DAY 1 CAPSULE 750982 RxNorm TAKE 1 CAPSULE ORAL THREE TIMES A DAY Nystatin 283952G/1ML Oral Suspension 01/02/2022 09/30/2023 ORAL FOUR TIMES A DAY 5 mL 693454 RxNorm TAKE 5 mL ORAL FOUR TIMES A DAY Cephalexin 500MG Oral Tablet 03/17/2024 03/19/2024 ORAL TWICE A DAY 1 TABLET 763929 RxNorm TAKE 1 TABLET ORAL TWICE A DAY x 7 days Acetaminophen 500MG Oral Tablet 03/18/2024 03/18/2024 ORAL NEEDED EVERY 6 HOURS 2 TABLET 027280 RxNorm TAKE 2 TABLET (OR 3 TABLETS regular strength 325mg) ORAL EVERY 6 HOURS FOR 1-2 DAYS THEN NEEDED FOR Fever/Pain (NEXT DOSES 6AM AND 12 NOON) Ibuprofen 200MG Oral Tablet 03/18/2024 03/18/2024 ORAL EVERY 6 HOURS 2 TABLET 936059 RxNorm TAKE 2 TABLET ORAL EVERY 6 HOURS FOR 24 HOURS THEN NEEDED. (NEXT DOSES at 4AM AND 10AM) Aspirin 81MG Oral Tablet, Enteric Coated 03/19/2024 Unknown ORAL DAILY 81 MILLIGRAMS 539185 RxNorm TAKE 81 MILLIGRAMS ORAL DAILY Carvedilol 6.25MG Oral Tablet 03/19/2024 Unknown ORAL TWICE A DAY 6.25 MILLIGRAMS 19990607 RxNorm TAKE 6.25 MILLIGRAMS ORAL TWICE A DAY Fish Oil [place]-3 1000 MG Oral Capsule, Liquid Filled 03/19/2024 Unknown ORAL DAILY 1000 MG RxNorm TAKE 10 00 MG ORAL DAILY Gabapentin 600MG Oral Tablet 03/19/2024 Unknown ORAL TWICE A DAY 600 MILLIGRAMS 142745 RxNorm TAKE 600 MILLIGRAMS ORAL TWICE A DAY Lisinopril 10MG Oral Tablet 03/19/2024 Unknown ORAL DAILY 10 MILLIGRAMS 340699 RxNorm TAKE 10 MILLIGRAMS ORAL DAILY Multiple [...] Tablet 03/19/2024 Unknown ORAL BEDTIME 0.5 MILLIGRAMS 422164 RxNorm TAKE 0.5 MILLIGRAMS ORAL BEDTIME Ventolin HFA 0.09MG/1Actuat ion Inhalation Suspension 03/19/2024 Unknown INHAL ATION NEEDED EVERY 4 HOURS 2 unit(s) 510385 RxNorm 2 EACH INHALATION NEEDED EVERY 4 HOURS Victoza 6MG/1ML Subcutaneous Solution 03/19/2024 Unknown SUBCU TANEO US 1.8 MILLILITERS 690327 RxNorm INJECT 1.8 MILLILITERS SUBCUTANEOU S Cefdinir [...] Code Code System URINARY TRACT INFECTION active 899848 05 SNOMED-CT HYPOTENSION active 85978975 SNOMED-C T HYPOKALEMIA active 96069116 SNOMED-C T SEPSIS active 57538480 SNOMED-CT CIRRHOSIS - NON-ALCOHOLIC 01/02/2022 resolved 266 945260 SNOMED-CT HTN 08/20/2019 resolved 35958631 SNOMED-CT HIGH CHOLESTEROL 10/01/2023 resolved 06306015 SN OMED-CT PERSONAL HISTORY OF BLADDER CA 08/20/2019 resolved 567004757 SNOMED-CT NON-INSULIN DEPENDENT DIABETES MELLITUS 08/20/2019 resolved 54537594 SNOMED-CT 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
--- OUTSIDE RECORDS SUMMARY | 2024-04-16 15:32 | XMS_ITS ---
Author Organization Unknown Address [address] [place] [address] [phone] Phone Care Team Providers Care Gold And Silver Assayer Name Role Phone HANSA Bear Attending Unavailable JOHN Guaman Primary Unavailable Results CULT URINE CULTURE* - [facility] t Date/Time: 04/06/2021 15:43 [facility] ID: [id number] [address] [place] [address], [phone] LOINC: 630-4 Test Value Unit Reference Range Code Code System Flag COLLECTION MODE: CLEAN CATCH URINALYSIS ROUTINE* - [facility] t Date/Time: 04/06/2021 15:43 [facility] ID: [id number] [address] [place] [address], [phone] LOINC: Test Value Unit Reference Range Code Code System Flag COLLECTION MODE: CLEAN CATCH Color YELLOW yellow 5778-6 LOINC Appearance HAZY clear 5767-9 LOINC Glucose urine NEGATIVE negative mg/dl 41603-9 LOINC Bilirubin NEGATIVE negative 5770-3 LOINC Ketones NEGATIVE negative mg/dl 2514-8 LOINC Spec gravity 1.025 1.003 - 1.030 5811-5 LOINC pH urine 5.5 5.0 - 7.0 2756-5 LOINC Protein NEGATIVE negative mg/dl 13565-4 LOINC Urobilinogen 0.2 <or= 1 EU/dl 55675-6 LOINC Nitrite NEGATIVE negative 5802-4 LOINC Blood TRACE-IN negative 5794-3 LOINC A Leukocytes MODERATE negative 67590-7 LOINC A MICROSCOPIC* INDICATED WBCs 25-100 0-5 / hpf 76351-1 LOINC RBCs 0-5 0-5 / hpf 10006-7 LOINC Epith cells 0-5 0-5 / hpf 82463-6 LOINC Cell types squam+trans Crystals none none Bacteria minimal none Mucus none none 8247-9 LOINC Casts none none /lpf 83760-9 LOINC Other 53747-8 LOINC Social History Type Status Start Date End Date Code Code Syst em Smoking History Never smoker (Never Smoked) 218660572 SNOMED CT Sex Female Medications Medication Start Date End Date Route Frequency Dose Code Code System Medication Instructions Home Meds Amitriptyline 50MG Oral Tablet 08/20/2019 01/02/2022 ORAL BEDTIME 50 MILLIGRAMS 472633 RxNorm TAKE 50 MILLIGRAMS ORAL BEDTIME Atorvastatin Calcium 20MG Oral Tablet 08/20/2019 Unknown ORAL BEDTIME 20 MILLIGRAMS 928190 RxNorm TAKE 20 MILLIGRAMS ORAL BEDTIME Fish Oil 1000MG Oral Capsule, Liquid Filled 08/20/2019 03/18/2024 ORAL DAILY 3 CAPSULE 366958 RxNorm TA KE 3 CAPSULE ORAL DAILY Gabapentin 800MG Oral Tablet 08/20/2019 03/18/2024 ORAL TWICE A DAY 1 TABLET 891176 RxNorm TAKE 1 TABLET ORAL TWICE A DAY Lisinopril 20MG Oral Tablet 08/20/2019 03/18/2024 ORAL DAILY 20 MILLIGRAMS 842411 RxNorm TAKE 20 MILLIGRAMS ORAL DAILY Loratadine 10MG Oral Tablet 08/20/2019 01/02/2022 ORAL DAILY 10 MILLIGRAMS 488248 RxNorm TAKE 10 MILLIGRAMS ORAL DAILY Multiple Vitamin Formula Oral Tablet 08/20/2019 03/18/2024 ORAL DAILY 1 unit(s) 5184645 RxNorm TAKE 1 E ACH ORAL DAILY Pramipexole Dihydrochlorid e 0.125MG Oral Tablet 08/20/2019 09/30/2023 ORAL BEDTIME 2 TABLET 321504 RxNorm TAKE 2 TABLET ORAL BEDTIME Probiotic 250MG Oral Capsule 08/20/2019 01/02/2022 ORAL DAILY 3 TABLET 247556 RxNorm TAKE 3 TABLET ORAL DAILY glipiZIDE 10MG Oral Tablet, Extended Release 08/20/2019 Unknown ORAL DAILY 10 MILLIGRAMS 551256 RxNorm TAKE 10 MILLIGRAMS ORAL DAILY metFORMIN HCl 1000MG Oral Tablet 08/20/2019 Unknown ORAL TWICE A DAY WITH FOOD 1000 MILLIGRAMS 022714 RxNorm TAKE 1000 MILLIGRAMS ORAL TWICE A DAY WITH FOOD Cephalexin 500MG Oral Tablet 08/20/2019 01/02/2022 ORAL THREE TIMES A DAY 1 TABLET 232285 RxNorm TAKE 1 TABLET ORAL THREE TIMES A DAY Keflex 500MG Oral Capsule 01/02/2022 09/30/2023 ORAL THREE TIMES A DAY 1 CAPSULE 079049 RxNorm TAKE 1 CAPSULE ORAL THREE TIMES A DAY Nystatin 442534M/1ML Oral Suspension 01/02/2022 09/30/2023 ORAL FOUR TIMES A DAY 5 mL 968194 RxNorm TAKE 5 mL ORAL FOUR TIMES A DAY Cephalexin 500MG Oral Tablet 03/17/2024 03/19/2024 ORAL TWICE A DAY 1 TABLET 326526 RxNorm TAKE 1 TABLET ORAL TWICE A DAY x 7 days Acetaminophen 500MG Oral Tablet 03/18/2024 03/18/2024 ORAL NEEDED EVERY 6 HOURS 2 TABLET 761984 RxNorm TAKE 2 TABLET (OR 3 TABLETS regular strength 325mg) ORAL EVERY 6 HOURS FOR 1-2 DAYS THEN NEEDED FOR Fever/Pain (NEXT DOSES 6AM AND 12 NOON) Ibuprofen 200MG Oral Tablet 03/18/2024 03/18/2024 ORAL EVERY 6 HOURS 2 TABLET 479216 RxNorm TAKE 2 TABLET ORAL EVERY 6 HOURS FOR 24 HOURS THEN NEEDED. (NEXT DOSES at 4AM AND 10AM) Aspirin 81MG Oral Tablet, Enteric Coated 03/19/2024 Unknown ORAL DAILY 81 MILLIGRAMS 151918 RxNorm TAKE 81 MILLIGRAMS ORAL DAILY Carvedilol 6.25MG Oral Tablet 03/19/2024 Unknown ORAL TWICE A DAY 6.25 MILLIGRAMS 222874 RxNorm TAKE 6.25 MILLIGRAMS ORAL TWICE A DAY Fish Oil [place]-3 1000 MG Oral Capsule, Liquid Filled 03/19/2024 Unknown ORAL DAILY 1000 MG RxNorm TAKE 10 00 MG ORAL DAILY Gabapentin 600MG Oral Tablet 03/19/2024 Unknown ORAL TWICE A DAY 600 MILLIGRAMS 663530 RxNorm TAKE 600 MILLIGRAMS ORAL TWICE A DAY Lisinopril 10MG Oral Tablet 03/19/2024 Unknown ORAL DAILY 10 MILLIGRAMS 109164 RxNorm TAKE 10 MILLIGRAMS ORAL DAILY Multiple [...] Tablet 03/19/2024 Unknown ORAL BEDTIME 0.5 MILLIGRAMS 089369 RxNorm TAKE 0.5 MILLIGRAMS ORAL BEDTIME Ventolin HFA 0.09MG/1Actuat ion Inhalation Suspension 03/19/2024 Unknown INHAL ATION NEEDED EVERY 4 HOURS 2 unit(s) 012309 RxNorm 2 EACH INHALATION NEEDED EVERY 4 HOURS Victoza 6MG/1ML Subcutaneous Solution 03/19/2024 Unknown SUBCU TANEO US 1.8 MILLILITERS 052069 RxNorm INJECT 1.8 MILLILITERS SUBCUTANEOU S Cefdinir [...] Code Code System URINARY TRACT INFECTION active 086934 05 SNOMED-CT HYPOTENSION active 40000447 SNOMED-C T HYPOKALEMIA active 04180078 SNOMED-C T SEPSIS active 90095800 SNOMED-CT CIRRHOSIS - NON-ALCOHOLIC 01/02/2022 resolved 266 191935 SNOMED-CT HTN 08/20/2019 resolved 45723362 SNOMED-CT HIGH CHOLESTEROL 10/01/2023 resolved 66579551 SN OMED-CT PERSONAL HISTORY OF BLADDER CA 08/20/2019 resolved 718747502 SNOMED-CT NON-INSULIN DEPENDENT DIABETES MELLITUS 08/20/2019 resolved 53173800 SNOMED-CT 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
--- OUTSIDE RECORDS SUMMARY | 2024-04-16 15:32 | XMS_ITS ---
Author Organization Unknown Address [address] [place] [address] [phone] Phone Care Team Providers Care Veneer Measurer Name Role Phone LYUBOVMIRA HULLMARIA R Attending Unavailable JOHN Guaman Primary Unavailable Social History Type Status Start Date End Date Code Code Syst em Smoking History Never smoker (Never Smoked) 670480145 SNOMED CT Sex Female Medications Medication Start Date End Date Route Frequency Dose Code Code System Medication Instructions Home Meds Amitriptyline 50MG Oral Tablet 08/20/2019 01/02/2022 ORAL BEDTIME 50 MILLIGRAMS 917731 RxNorm TAKE 50 MILLIGRAMS ORAL BEDTIME Atorvastatin Calcium 20MG Oral Tablet 08/20/2019 Unknown ORAL BEDTIME 20 MILLIGRAMS 347986 RxNorm TAKE 20 MILLIGRAMS ORAL BEDTIME Fish Oil 1000MG Oral Capsule, Liquid Filled 08/20/2019 03/18/2024 ORAL DAILY 3 CAPSULE 816539 RxNorm TA KE 3 CAPSULE ORAL DAILY Gabapentin 800MG Oral Tablet 08/20/2019 03/18/2024 ORAL TWICE A DAY 1 TABLET 962202 RxNorm TAKE 1 TABLET ORAL TWICE A DAY Lisinopril 20MG Oral Tablet 08/20/2019 03/18/2024 ORAL DAILY 20 MILLIGRAMS 611848 RxNorm TAKE 20 MILLIGRAMS ORAL DAILY Loratadine 10MG Oral Tablet 08/20/2019 01/02/2022 ORAL DAILY 10 MILLIGRAMS 617692 RxNorm TAKE 10 MILLIGRAMS ORAL DAILY Multiple Vitamin Formula Oral Tablet 08/20/2019 03/18/2024 ORAL DAILY 1 unit(s) 2403950 RxNorm TAKE 1 E ACH ORAL DAILY Pramipexole Dihydrochlorid e 0.125MG Oral Tablet 08/20/2019 09/30/2023 ORAL BEDTIME 2 TABLET 180618 RxNorm TAKE 2 TABLET ORAL BEDTIME Probiotic 250MG Oral Capsule 08/20/2019 01/02/2022 ORAL DAILY 3 TABLET 415292 RxNorm TAKE 3 TABLET ORAL DAILY glipiZIDE 10MG Oral Tablet, Extended Release 08/20/2019 Unknown ORAL DAILY 10 MILLIGRAMS 726417 RxNorm TAKE 10 MILLIGRAMS ORAL DAILY metFORMIN HCl 1000MG Oral Tablet 08/20/2019 Unknown ORAL TWICE A DAY WITH FOOD 1000 MILLIGRAMS 944819 RxNorm TAKE 1000 MILLIGRAMS ORAL TWICE A DAY WITH FOOD Cephalexin 500MG Oral Tablet 08/20/2019 01/02/2022 ORAL THREE TIMES A DAY 1 TABLET 023272 RxNorm TAKE 1 TABLET ORAL THREE TIMES A DAY Keflex 500MG Oral Capsule 01/02/2022 09/30/2023 ORAL THREE TIMES A DAY 1 CAPSULE 173409 RxNorm TAKE 1 CAPSULE ORAL THREE TIMES A DAY Nystatin 073042G/1ML Oral Suspension 01/02/2022 09/30/2023 ORAL FOUR TIMES A DAY 5 mL 805249 RxNorm TAKE 5 mL ORAL FOUR TIMES A DAY Cephalexin 500MG Oral Tablet 03/17/2024 03/19/2024 ORAL TWICE A DAY 1 TABLET 080245 RxNorm TAKE 1 TABLET ORAL TWICE A DAY x 7 days Acetaminophen 500MG Oral Tablet 03/18/2024 03/18/2024 ORAL NEEDED EVERY 6 HOURS 2 TABLET 739653 RxNorm TAKE 2 TABLET (OR 3 TABLETS regular strength 325mg) ORAL EVERY 6 HOURS FOR 1-2 DAYS THEN NEEDED FOR Fever/Pain (NEXT DOSES 6AM AND 12 NOON) Ibuprofen 200MG Oral Tablet 03/18/2024 03/18/2024 ORAL EVERY 6 HOURS 2 TABLET 440501 RxNorm TAKE 2 TABLET ORAL EVERY 6 HOURS FOR 24 HOURS THEN NEEDED. (NEXT DOSES at 4AM AND 10AM) Aspirin 81MG Oral Tablet, Enteric Coated 03/19/2024 Unknown ORAL DAILY 81 MILLIGRAMS 861251 RxNorm TAKE 81 MILLIGRAMS ORAL DAILY Carvedilol 6.25MG Oral Tablet 03/19/2024 Unknown ORAL TWICE A DAY 6.25 MILLIGRAMS 525342 RxNorm TAKE 6.25 MILLIGRAMS ORAL TWICE A DAY Fish Oil [place]-3 1000 MG Oral Capsule, Liquid Filled 03/19/2024 Unknown ORAL DAILY 1000 MG RxNorm TAKE 10 00 MG ORAL DAILY Gabapentin 600MG Oral Tablet 03/19/2024 Unknown ORAL TWICE A DAY 600 MILLIGRAMS 490735 RxNorm TAKE 600 MILLIGRAMS ORAL TWICE A DAY Lisinopril 10MG Oral Tablet 03/19/2024 Unknown ORAL DAILY 10 MILLIGRAMS 549821 RxNorm TAKE 10 MILLIGRAMS ORAL DAILY Multiple [...] Tablet 03/19/2024 Unknown ORAL BEDTIME 0.5 MILLIGRAMS 781054 RxNorm TAKE 0.5 MILLIGRAMS ORAL BEDTIME Ventolin HFA 0.09MG/1Actuat ion Inhalation Suspension 03/19/2024 Unknown INHAL ATION NEEDED EVERY 4 HOURS 2 unit(s) 412991 RxNorm 2 EACH INHALATION NEEDED EVERY 4 HOURS Victoza 6MG/1ML Subcutaneous Solution 03/19/2024 Unknown SUBCU TANEO US 1.8 MILLILITERS 461408 RxNorm INJECT 1.8 MILLILITERS SUBCUTANEOU S Cefdinir [...] Code Code System URINARY TRACT INFECTION active 015445 05 SNOMED-CT HYPOTENSION active 06529182 SNOMED-C T HYPOKALEMIA active 48489616 SNOMED-C T SEPSIS active 90633710 SNOMED-CT CIRRHOSIS - NON-ALCOHOLIC 01/02/2022 resolved 266 551743 SNOMED-CT HTN 08/20/2019 resolved 06138042 SNOMED-CT HIGH CHOLESTEROL 10/01/2023 resolved 47428560 SN OMED-CT PERSONAL HISTORY OF BLADDER CA 08/20/2019 resolved 817335891 SNOMED-CT NON-INSULIN DEPENDENT DIABETES MELLITUS 08/20/2019 resolved 03490631 SNOMED-CT 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 520268680 SNOMED-CT Allergies and Adverse Reactions Allergy Substance Reaction Severity Start Date Concern Status Co de Code System CODEINE Active 5043 RxNorm Plan of Treatment NM MPI STR/RST 05/15/2023 CT CHEST W/O CONTRAST 05/18/2022 CT CHEST W/O CONTRAST 03/26/2022 MRI BRAIN W/O CONTRAST 01/25/2021 Encounters Encounter Diagnosis Start Date Code Code Sys tem Refusal of treatment by patient 08/24/2021 106642481 SNOMED-CT Personal Care Team Section Performer Name Performer Role Active Date Inactive Da te
--- OUTSIDE RECORDS SUMMARY | 2024-04-16 15:32 | XMS_ITS ---
Author Organization Unknown Address [address] [place] [address] [phone] Phone Care Team Providers Care Crew Truck Driver Name Role Phone ERAN Viera Attending Unavailable Results XR CHEST 2V PA AND LATERAL - Completed: 11/27/2022 14:20 LOINC: [facility] [place], [place] [address] PACS PROTECTIVE SIGNAL SUPERINTENDENT REPORT Patient Name: NICK MENDIETA MRN: Sex: : Age: [id number] F [id number] Account: Accession: Admit: StayType: [id number] 11/27/2022 O/P Ordered: Order ID: Submitted: Ordering Provider: 11/27/2022 14:03 [id number] KT RUPAL BARILLAS Completed: Technologist: Resulted: 11/27/2022 14:20 [facility] 11/27/2022 14:47 Study Description: XR CHEST [...] em Smoking History Never smoker (Never Smoked) [id number] SNOMED CT Sex Female Medications Medication Start Date End Date Route Frequency Dose Code Code System Medication Instructions Home Meds Atorvastatin Calcium 20MG Oral Tablet 08/20/2019 Unknown ORAL BEDTIME 20 MILLIGRAMS 833058 RxNorm TAKE 20 MILLIGRAMS ORAL BEDTIME Fish Oil 1000MG Oral Capsule, Liquid Filled 08/20/2019 03/18/20 24 ORAL DAILY 3 CAPSULE 183198 RxNorm TAKE 3 CAPSULE ORAL DAILY Gabapentin 800MG Oral Tablet 08/20/2019 03/18/20 24 ORAL TWICE A DAY 1 TABLET 870899 RxNorm TAKE 1 TABLET ORAL TWICE A DAY Lisinopril 20MG Oral Tablet 08/20/2019 03/18/20 24 ORAL DAILY 20 MILLIGRAMS 907668 RxNorm TAKE 20 MILLIGRAMS ORAL DAILY Multiple Vitamin Formula Oral Tablet 08/20/2019 03/18/20 24 ORAL DAILY 1 unit(s) 4921796 RxNorm TAKE 1 EACH ORAL DAILY Pramipexole Dihydrochlorid e 0.125MG Oral Tablet 08/20/2019 09/30/19 24 ORAL BEDTIME 2 TABLET 753064 RxNorm TAKE 2 TABLET ORAL BEDTIME glipiZIDE 10MG Oral Tablet, Extended Release 08/20/2019 Unknown ORAL DAILY 10 MILLIGRAMS 616052 RxNorm TAKE 10 MILLIGRAMS ORAL DAILY metFORMIN HCl 1000MG Oral Tablet 08/20/2019 Unknown ORAL TWICE A DAY WITH FOOD 1000 MILLIGRAMS 193613 RxNorm TAKE 1000 MILLIGRAMS ORAL TWICE A DAY WITH FOOD Keflex 500MG Oral Capsule 01/02/2022 09/30/19 24 ORAL THREE TIMES A DAY 1 CAPSULE 376273 RxNorm TAKE 1 CAPSULE ORAL THREE TIMES A DAY Nystatin 602898T/1ML Oral Suspension 01/02/2022 09/30/19 24 ORAL FOUR TIMES A DAY 5 mL 361769 RxNorm TAKE 5 mL ORAL FOUR TIMES A DAY Cephalexin 500MG Oral Tablet 03/17/2024 03/19/20 24 ORAL TWICE A DAY 1 TABLET 464767 RxNorm TAKE 1 TABLET ORAL TWICE A DAY x 7 days Acetaminophen 500MG Oral Tablet 03/18/2024 03/18/20 24 ORAL NEEDED EVERY 6 HOURS 2 TABLET 511510 RxNorm TAKE 2 TABLET (OR 3 TABLETS regular strength 325mg) ORAL EVERY 6 HOURS FOR 1-2 DAYS THEN NEEDED FOR Fever/Pain (NEXT DOSES 6AM AND 12 NOON) Ibuprofen 200MG Oral Tablet 03/18/2024 03/18/20 24 ORAL EVERY 6 HOURS 2 TABLET 016575 RxNorm TAKE 2 TABLET ORAL EVERY 6 HOURS FOR 24 HOURS THEN NEEDED. (NEXT DOSES at 4AM AND 10AM) Aspirin 81MG Oral Tablet, Enteric Coated 03/19/2024 Unknown ORAL DAILY 81 MILLIGRAMS 085739 RxNorm TAKE 81 MILLIGRAMS ORAL DAILY Carvedilol 6.25MG Oral Tablet 03/19/2024 Unknown ORAL TWICE A DAY 6.25 MILLIGRAMS 19990607 RxNorm TAKE 6.25 MILLIGRAMS ORAL TWICE A DAY Fish Oil [place]-3 1000 MG Oral Capsule, Liquid Filled 03/19/2024 Unknown ORAL DAILY 1000 MG RxNorm TAKE 10 00 MG ORAL DAILY Gabapentin 600MG Oral Tablet 03/19/2024 Unknown ORAL TWICE A DAY 600 MILLIGRAMS 219040 RxNorm TAKE 600 MILLIGRAMS ORAL TWICE A DAY Lisinopril 10MG Oral Tablet 03/19/2024 Unknown ORAL DAILY 10 MILLIGRAMS 816003 RxNorm TAKE 10 MILLIGRAMS ORAL DAILY Multiple Vitamins Oral Tablet 03/19/2024 Unknown ORAL DAILY 1 unit(s) RxNorm TAKE 1 EACH ORAL DAILY Nitroglycerin 0.4MG Sublingual Tablet 03/19/2024 Unknown SUBLIN GUAL NEEDED 0.4 MILLIGRAMS 702248 RxNorm DISSOLVE 0.4 MILLIGRAMS SUBLINGUAL NEEDED Omeprazole 40MG Oral Capsule, Delayed Release 03/19/2024 Unknown ORAL DAILY 40 MILLIGRAMS 20020517 RxNorm TAKE 40 MILLIGRAMS ORAL DAILY Pramipexole Dihydrochlorid e 0.5MG Oral Tablet 03/19/2024 Unknown ORAL BEDTIME 0.5 MILLIGRAMS 830706 RxNorm TAKE 0.5 MILLIGRAMS ORAL BEDTIME Ventolin HFA 0.09MG/1Actuat ion Inhalation Suspension 03/19/2024 Unknown INHALA TION NEEDED EVERY 4 HOURS 2 unit(s) 298898 RxNorm 2 EACH INHALATION NEEDED EVERY 4 HOURS Victoza 6MG/1ML Subcutaneous Solution 03/19/2024 Unknown SUBCUT ANEOUS 1.8 MILLILITERS 553632 RxNorm INJECT 1.8 MILLILITERS SUBCUTANEOU S Cefdinir [...] Code Code System URINARY TRACT INFECTION active 513336 05 SNOMED-CT HYPOTENSION active 25925283 SNOMED-C T HYPOKALEMIA active 33740462 SNOMED-C T SEPSIS active 52132715 SNOMED-CT CIRRHOSIS - NON-ALCOHOLIC 01/02/2022 resolved 266 030550 SNOMED-CT HTN 08/20/2019 resolved 82807265 SNOMED-CT HIGH CHOLESTEROL 10/01/2023 resolved 02300464 SN OMED-CT PERSONAL HISTORY OF BLADDER CA 08/20/2019 resolved 230277495 SNOMED-CT NON-INSULIN DEPENDENT DIABETES MELLITUS 08/20/2019 resolved 87663934 SNOMED-CT 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 700652256 SNOMED-CT Allergies and Adverse Reactions Allergy Substance Reaction Severity Start Date Concern Status Co de Code System CODEINE Active 2670 RxNorm Plan of Treatment NM MPI STR/RST 05/15/2023 CT CHEST W/O CONTRAST 05/18/2022 CT CHEST W/O CONTRAST 03/26/2022 MRI BRAIN W/O CONTRAST 01/25/2021 Encounters Encounter Diagnosis Start Date Code Code Sys tem Pneumonia 11/27/2022 [id number] SNOMED-CT Personal Care Team Section Performer Name Performer Role Active Date Inactive Da te
--- OUTSIDE RECORDS SUMMARY | 2024-04-16 15:33 | XMS_ITS ---
Author Organization Unknown Address [address] [place] [address] [phone] Phone Care Team Providers Care Screwmaker Automatic Name Role Phone TYSON Waller Attending Unavailable ERAN Viera Primary Unavailable Social History Type Status Start Date End Date Code Code Syst em Smoking History Never smoker (Never Smoked) 426821390 SNOMED CT Sex Female Medications Medication Start Date End Date Route Frequency Dose Code Code System Medication Instructions Home Meds Atorvastatin Calcium 20MG Oral Tablet 08/20/2019 Unknown ORAL BEDTIME 20 MILLIGRAMS 046548 RxNorm TAKE 20 MILLIGRAMS ORAL BEDTIME Fish Oil 1000MG Oral Capsule, Liquid Filled 08/20/2019 03/18/20 24 ORAL DAILY 3 CAPSULE 152597 RxNorm TAKE 3 CAPSULE ORAL DAILY Gabapentin 800MG Oral Tablet 08/20/2019 03/18/20 24 ORAL TWICE A DAY 1 TABLET 069188 RxNorm TAKE 1 TABLET ORAL TWICE A DAY Lisinopril 20MG Oral Tablet 08/20/2019 03/18/20 24 ORAL DAILY 20 MILLIGRAMS 601778 RxNorm TAKE 20 MILLIGRAMS ORAL DAILY Multiple Vitamin Formula Oral Tablet 08/20/2019 03/18/20 24 ORAL DAILY 1 unit(s) 6799668 RxNorm TAKE 1 EACH ORAL DAILY Pramipexole Dihydrochlorid e 0.125MG Oral Tablet 08/20/2019 09/30/19 24 ORAL BEDTIME 2 TABLET 578006 RxNorm TAKE 2 TABLET ORAL BEDTIME glipiZIDE 10MG Oral Tablet, Extended Release 08/20/2019 Unknown ORAL DAILY 10 MILLIGRAMS 823032 RxNorm TAKE 10 MILLIGRAMS ORAL DAILY metFORMIN HCl 1000MG Oral Tablet 08/20/2019 Unknown ORAL TWICE A DAY WITH FOOD 1000 MILLIGRAMS 538189 RxNorm TAKE 1000 MILLIGRAMS ORAL TWICE A DAY WITH FOOD Keflex 500MG Oral Capsule 01/02/2022 09/30/19 24 ORAL THREE TIMES A DAY 1 CAPSULE 879705 RxNorm TAKE 1 CAPSULE ORAL THREE TIMES A DAY Nystatin 571245D/1ML Oral Suspension 01/02/2022 09/30/19 24 ORAL FOUR TIMES A DAY 5 mL 449415 RxNorm TAKE 5 mL ORAL FOUR TIMES A DAY Cephalexin 500MG Oral Tablet 03/17/2024 03/19/20 24 ORAL TWICE A DAY 1 TABLET 504396 RxNorm TAKE 1 TABLET ORAL TWICE A DAY x 7 days Acetaminophen 500MG Oral Tablet 03/18/2024 03/18/20 24 ORAL NEEDED EVERY 6 HOURS 2 TABLET 897155 RxNorm TAKE 2 TABLET (OR 3 TABLETS regular strength 325mg) ORAL EVERY 6 HOURS FOR 1-2 DAYS THEN NEEDED FOR Fever/Pain (NEXT DOSES 6AM AND 12 NOON) Ibuprofen 200MG Oral Tablet 03/18/2024 03/18/20 24 ORAL EVERY 6 HOURS 2 TABLET 620271 RxNorm TAKE 2 TABLET ORAL EVERY 6 HOURS FOR 24 HOURS THEN NEEDED. (NEXT DOSES at 4AM AND 10AM) Aspirin 81MG Oral Tablet, Enteric Coated 03/19/2024 Unknown ORAL DAILY 81 MILLIGRAMS 326901 RxNorm TAKE 81 MILLIGRAMS ORAL DAILY Carvedilol 6.25MG Oral Tablet 03/19/2024 Unknown ORAL TWICE A DAY 6.25 MILLIGRAMS 19990607 RxNorm TAKE 6.25 MILLIGRAMS ORAL TWICE A DAY Fish Oil [place]-3 1000 MG Oral Capsule, Liquid Filled 03/19/2024 Unknown ORAL DAILY 1000 MG RxNorm TAKE 10 00 MG ORAL DAILY Gabapentin 600MG Oral Tablet 03/19/2024 Unknown ORAL TWICE A DAY 600 MILLIGRAMS 461510 RxNorm TAKE 600 MILLIGRAMS ORAL TWICE A DAY Lisinopril 10MG Oral Tablet 03/19/2024 Unknown ORAL DAILY 10 MILLIGRAMS 764860 RxNorm TAKE 10 MILLIGRAMS ORAL DAILY Multiple Vitamins Oral Tablet 03/19/2024 Unknown ORAL DAILY 1 unit(s) RxNorm TAKE 1 EACH ORAL DAILY Nitroglycerin 0.4MG Sublingual Tablet 03/19/2024 Unknown SUBLIN GUAL NEEDED 0.4 MILLIGRAMS 19790615 RxNorm DISSOLVE 0.4 MILLIGRAMS SUBLINGUAL NEEDED Omeprazole 40MG Oral Capsule, Delayed Release 03/19/2024 Unknown ORAL DAILY 40 MILLIGRAMS 539057 RxNorm TAKE 40 MILLIGRAMS ORAL DAILY Pramipexole Dihydrochlorid e 0.5MG Oral Tablet 03/19/2024 Unknown ORAL BEDTIME 0.5 MILLIGRAMS 838072 RxNorm TAKE 0.5 MILLIGRAMS ORAL BEDTIME Ventolin HFA 0.09MG/1Actuat ion Inhalation Suspension 03/19/2024 Unknown INHALA TION NEEDED EVERY 4 HOURS 2 unit(s) 546668 RxNorm 2 EACH INHALATION NEEDED EVERY 4 HOURS Victoza 6MG/1ML Subcutaneous Solution 03/19/2024 Unknown SUBCUT ANEOUS 1.8 MILLILITERS 473767 RxNorm INJECT 1.8 MILLILITERS SUBCUTANEOU S Cefdinir [...] Code Code System URINARY TRACT INFECTION active 620826 05 SNOMED-CT HYPOTENSION active 50755805 SNOMED-C T HYPOKALEMIA active 93143204 SNOMED-C T SEPSIS active 47557512 SNOMED-CT CIRRHOSIS - NON-ALCOHOLIC 01/02/2022 resolved 266 581005 SNOMED-CT HTN 08/20/2019 resolved 66039290 SNOMED-CT HIGH CHOLESTEROL 10/01/2023 resolved 37067639 SN OMED-CT PERSONAL HISTORY OF BLADDER CA 08/20/2019 resolved 845379996 SNOMED-CT NON-INSULIN DEPENDENT DIABETES MELLITUS 08/20/2019 resolved 85555413 SNOMED-CT 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
--- OUTSIDE RECORDS SUMMARY | 2024-04-16 15:33 | XMS_ITS ---
Author Organization Unknown Address [address] [place] [phone] Phone Care Team Providers Care Production Operations Manager Name Role Phone ERAN Viera Attending Unavailable Results XR CHEST 2V PA AND LATERAL - Completed: 03/19/2023 20:46 LOINC: [facility] [place], [place] [address] PACS FULL TIME BABYSITTER REPORT Patient Name: NICK MENDIETA MRN: Sex: : Age: [id number] F [id number] Account: Accession: Admit: StayType: [id number] 03/19/2023 O/P Ordered: Order ID: Submitted: Ordering Provider: 03/19/2023 09:53 [id number] RUPAL FREY Completed: Technologist: Resulted: 03/19/2023 09:53 [...] em Smoking History Never smoker (Never Smoked) [id number] SNOMED CT Sex Female Medications Medication Start Date End Date Route Frequency Dose Code Code System Medication Instructions Home Meds Atorvastatin Calcium 20MG Oral Tablet 08/20/2019 Unknown ORAL BEDTIME 20 MILLIGRAMS 441153 RxNorm TAKE 20 MILLIGRAMS ORAL BEDTIME Fish Oil 1000MG Oral Capsule, Liquid Filled 08/20/2019 03/18/20 24 ORAL DAILY 3 CAPSULE 600702 RxNorm TAKE 3 CAPSULE ORAL DAILY Gabapentin 800MG Oral Tablet 08/20/2019 03/18/20 24 ORAL TWICE A DAY 1 TABLET 889662 RxNorm TAKE 1 TABLET ORAL TWICE A DAY Lisinopril 20MG Oral Tablet 08/20/2019 03/18/20 24 ORAL DAILY 20 MILLIGRAMS 746464 RxNorm TAKE 20 MILLIGRAMS ORAL DAILY Multiple Vitamin Formula Oral Tablet 08/20/2019 03/18/20 24 ORAL DAILY 1 unit(s) 8869962 RxNorm TAKE 1 EACH ORAL DAILY Pramipexole Dihydrochlorid e 0.125MG Oral Tablet 08/20/2019 09/30/19 24 ORAL BEDTIME 2 TABLET 091791 RxNorm TAKE 2 TABLET ORAL BEDTIME glipiZIDE 10MG Oral Tablet, Extended Release 08/20/2019 Unknown ORAL DAILY 10 MILLIGRAMS 917332 RxNorm TAKE 10 MILLIGRAMS ORAL DAILY metFORMIN HCl 1000MG Oral Tablet 08/20/2019 Unknown ORAL TWICE A DAY WITH FOOD 1000 MILLIGRAMS 948379 RxNorm TAKE 1000 MILLIGRAMS ORAL TWICE A DAY WITH FOOD Keflex 500MG Oral Capsule 01/02/2022 09/30/19 24 ORAL THREE TIMES A DAY 1 CAPSULE 831107 RxNorm TAKE 1 CAPSULE ORAL THREE TIMES A DAY Nystatin 433504T/1ML Oral Suspension 01/02/2022 09/30/19 24 ORAL FOUR TIMES A DAY 5 mL 438036 RxNorm TAKE 5 mL ORAL FOUR TIMES A DAY Cephalexin 500MG Oral Tablet 03/17/2024 03/19/20 24 ORAL TWICE A DAY 1 TABLET 327848 RxNorm TAKE 1 TABLET ORAL TWICE A DAY x 7 days Acetaminophen 500MG Oral Tablet 03/18/2024 03/18/20 24 ORAL NEEDED EVERY 6 HOURS 2 TABLET 922057 RxNorm TAKE 2 TABLET (OR 3 TABLETS regular strength 325mg) ORAL EVERY 6 HOURS FOR 1-2 DAYS THEN NEEDED FOR Fever/Pain (NEXT DOSES 6AM AND 12 NOON) Ibuprofen 200MG Oral Tablet 03/18/2024 03/18/20 24 ORAL EVERY 6 HOURS 2 TABLET 846879 RxNorm TAKE 2 TABLET ORAL EVERY 6 HOURS FOR 24 HOURS THEN NEEDED. (NEXT DOSES at 4AM AND 10AM) Aspirin 81MG Oral Tablet, Enteric Coated 03/19/2024 Unknown ORAL DAILY 81 MILLIGRAMS 286510 RxNorm TAKE 81 MILLIGRAMS ORAL DAILY Carvedilol 6.25MG Oral Tablet 03/19/2024 Unknown ORAL TWICE A DAY 6.25 MILLIGRAMS 19990607 RxNorm TAKE 6.25 MILLIGRAMS ORAL TWICE A DAY Fish Oil [place]-3 1000 MG Oral Capsule, Liquid Filled 03/19/2024 Unknown ORAL DAILY 1000 MG RxNorm TAKE 10 00 MG ORAL DAILY Gabapentin 600MG Oral Tablet 03/19/2024 Unknown ORAL TWICE A DAY 600 MILLIGRAMS 865420 RxNorm TAKE 600 MILLIGRAMS ORAL TWICE A DAY Lisinopril 10MG Oral Tablet 03/19/2024 Unknown ORAL DAILY 10 MILLIGRAMS 966026 RxNorm TAKE 10 MILLIGRAMS ORAL DAILY Multiple Vitamins Oral Tablet 03/19/2024 Unknown ORAL DAILY 1 unit(s) RxNorm TAKE 1 EACH ORAL DAILY Nitroglycerin 0.4MG Sublingual Tablet 03/19/2024 Unknown SUBLIN GUAL NEEDED 0.4 MILLIGRAMS 841156 RxNorm DISSOLVE 0.4 MILLIGRAMS SUBLINGUAL NEEDED Omeprazole 40MG Oral Capsule, Delayed Release 03/19/2024 Unknown ORAL DAILY 40 MILLIGRAMS 20020517 RxNorm TAKE 40 MILLIGRAMS ORAL DAILY Pramipexole Dihydrochlorid e 0.5MG Oral Tablet 03/19/2024 Unknown ORAL BEDTIME 0.5 MILLIGRAMS 450599 RxNorm TAKE 0.5 MILLIGRAMS ORAL BEDTIME Ventolin HFA 0.09MG/1Actuat ion Inhalation Suspension 03/19/2024 Unknown INHALA TION NEEDED EVERY 4 HOURS 2 unit(s) 599715 RxNorm 2 EACH INHALATION NEEDED EVERY 4 HOURS Victoza 6MG/1ML Subcutaneous Solution 03/19/2024 Unknown SUBCUT ANEOUS 1.8 MILLILITERS 537242 RxNorm INJECT 1.8 MILLILITERS SUBCUTANEOU S Cefdinir [...] Code Code System URINARY TRACT INFECTION active 742802 05 SNOMED-CT HYPOTENSION active 82662524 SNOMED-C T HYPOKALEMIA active 35085257 SNOMED-C T SEPSIS active 67519129 SNOMED-CT CIRRHOSIS - NON-ALCOHOLIC 01/02/2022 resolved 266 325249 SNOMED-CT HTN 08/20/2019 resolved 30908953 SNOMED-CT HIGH CHOLESTEROL 10/01/2023 resolved 88446241 SN OMED-CT PERSONAL HISTORY OF BLADDER CA 08/20/2019 resolved 481557372 SNOMED-CT NON-INSULIN DEPENDENT DIABETES MELLITUS 08/20/2019 resolved 87401073 SNOMED-CT 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
--- OUTSIDE RECORDS SUMMARY | 2024-04-16 15:33 | XMS_ITS ---
Author Organization Unknown Address [address] [place] [address] [phone] Phone Care Team Providers Care Rubber Roller Grinder Name Role Phone KSENIA Gallo Attending Unavailable ERAN Viera Primary Unavailable Results BNP (PRO-B NATRIURETIC PEPTI [place]) - Collect Date/Time: 05/06/2023 11:05 [facility] ID: [id number] [address] [place] [address], [address] LOINC: 91975-2 Test Value Unit Reference Range Code Code System Flag NT-proBNP 63.0 pg/mL L=0.0 H=450 66316-2 LOINC TROPONIN HIGH SENSITIVITY* - Collect Date/Time: 05/06/2023 11:05 [facility] ID: [id number] [address] [place] [address], [address] LOINC: 39562-3 Test Value Unit Reference Range Code Code System Flag TROPONIN HS 4.8 pg/mL L=0.0 H=60.4 Specimen seq. RANDOM TSH THYROID STIMULATING HORM ONE* - Collect Date/Time: 05/06/2023 11:05 [facility] ID: [id number] [address] [place] [address], [address] LOINC: 3014-8 Test Value Unit Reference Range Code Code System Flag TSH 1.873 uIU/mL L=0.360 H=3.740 3014-8 LOINC HEPATIC FUNCTION PANEL - Col lect Date/Time: 05/06/2023 11:05 [facility] ID: [id number] [address] [place] [address], [id number] LOINC: 79727-1 Test Value Unit Reference Range Code Code [...] PANEL* - Collect Date/ Time: 05/06/2023 11:05 [facility] ID: [id number] [address] [place], [place], [phone] LOINC: Test Value Unit Reference Range Code Code System Flag FASTING STATUS: NOT KNOWN CHOLESTEROL 102 mg/dL L=0 H=200 2093-3 LOINC TRIGLYCERIDES 134 mg/dL L=57 H=256 2571-8 LOINC HDL 42 mg/dL L=38 H=92 2085-9 LOINC non-HDL-C 60 mg/dL L=0 H=160 82941-9 LOINC LDL (CALC) 33 mg/dL L=0 H=130 72876-5 LOINC % HDL 41.2 % Chol/HDL Ratio 2.4 L=0.0 H=4.4 9830-1 LOINC CHD Relative Risk 0.5 x Avg L=0.0 H=1.0 LDL/HDL Ratio 0.8 L=0.0 H=3.2 12087-5 LOINC CHD Relative Risk. 0.2 x Avg L=0.0 H=1.0 CBC W/ DIFFERENTIAL* - Colle ct Date/Time: 05/06/2023 11:05 [facility] ID: [id number] [address] [place] [address], [place], [address] LOINC: 17239-7 Test Value Unit Reference Range Code Code System Flag WBC 4.65 th/cmm L=5.00 H=10.00 6690-2 LOINC L NEUT % 64.5 % L=40.0 H=80.0 LYMPH % 20.0 % L=10.0 H=50.0 MONO % 12.3 % L=2.0 H=12.0 68624-4 LOINC H EOS % 2.6 % L=0.0 H=8.0 BASO % 0.4 % L=0.0 H=3.0 IG % 0.2 % L=0.0 H=1.1 2514-8 LOINC NRBC % 0.0 % L=0.0 H=0.0 51730-0 LOINC NEUT abs count 3.0 th/cmm L=1.6 H=8.4 751-8 LOINC LYMPH abs count 0.9 th/cmm L=1.5 H=4.0 731-0 LOINC L MONO abs count 0.6 th/cmm L=0.2 H=1.0 742-7 LOINC EOS abs count 0.1 th/cmm L=0.0 H=0.5 711-2 LOINC BASO abs count 0.0 th/cmm L=0.0 H=0.2 704-7 LOINC IG abs count 0.0 th/cmm L=0.0 H=0.1 13323-0 LOINC NRBC abs count 0.0 mil/cmm L=0.0 H=0.0 42316-3 LOINC RBC 4.22 mil/cmm L=3.90 H=5.40 789-8 [...] PANEL (BMP) - Collect Date/Time: 05/06/2023 11:05 [facility] ID: [id number] [address] [place] [address], [address] LOINC: 78485-0 Test Value Unit Reference Range Code Code [...] H=34 2028-9 LOINC ANION GAP 9.8 mmol/L 58109-2 LOINC CALCIUM SERUM 9.4 mg/dL L=8.2 H=10.2 18501-8 LOINC AGE 82 years eGFR (non-Afr.Amer.) 59 mL/min 91976-1 LOINC eGFR (Afr-[place]ic) 72 mL/min 82976-8 LOINC Social History Type Status Start Date End Date Code Code Syst em Smoking History Never smoker (Never Smoked) 985228679 SNOMED CT Sex Female Medications Medication Start Date End Date Route Frequency Dose Code Code System Medication Instructions Home Meds Atorvastatin Calcium 20MG Oral Tablet 08/20/2019 Unknown ORAL BEDTIME 20 MILLIGRAMS 057669 RxNorm TAKE 20 MILLIGRAMS ORAL BEDTIME Fish Oil 1000MG Oral Capsule, Liquid Filled 08/20/2019 03/18/20 24 ORAL DAILY 3 CAPSULE 621826 RxNorm TAKE 3 CAPSULE ORAL DAILY Gabapentin 800MG Oral Tablet 08/20/2019 03/18/20 24 ORAL TWICE A DAY 1 TABLET 262853 RxNorm TAKE 1 TABLET ORAL TWICE A DAY Lisinopril 20MG Oral Tablet 08/20/2019 03/18/20 24 ORAL DAILY 20 MILLIGRAMS 731907 RxNorm TAKE 20 MILLIGRAMS ORAL DAILY Multiple Vitamin Formula Oral Tablet 08/20/2019 03/18/20 24 ORAL DAILY 1 unit(s) 6148495 RxNorm TAKE 1 EACH ORAL DAILY Pramipexole Dihydrochlorid e 0.125MG Oral Tablet 08/20/2019 09/30/19 24 ORAL BEDTIME 2 TABLET 726581 RxNorm TAKE 2 TABLET ORAL BEDTIME glipiZIDE 10MG Oral Tablet, Extended Release 08/20/2019 Unknown ORAL DAILY 10 MILLIGRAMS 249905 RxNorm TAKE 10 MILLIGRAMS ORAL DAILY metFORMIN HCl 1000MG Oral Tablet 08/20/2019 Unknown ORAL TWICE A DAY WITH FOOD 1000 MILLIGRAMS 850987 RxNorm TAKE 1000 MILLIGRAMS ORAL TWICE A DAY WITH FOOD Keflex 500MG Oral Capsule 01/02/2022 09/30/19 24 ORAL THREE TIMES A DAY 1 CAPSULE 660353 RxNorm TAKE 1 CAPSULE ORAL THREE TIMES A DAY Nystatin 384495G/1ML Oral Suspension 01/02/2022 09/30/19 24 ORAL FOUR TIMES A DAY 5 mL 445296 RxNorm TAKE 5 mL ORAL FOUR TIMES A DAY Cephalexin 500MG Oral Tablet 03/17/2024 03/19/20 24 ORAL TWICE A DAY 1 TABLET 058169 RxNorm TAKE 1 TABLET ORAL TWICE A DAY x 7 days Acetaminophen 500MG Oral Tablet 03/18/2024 03/18/20 24 ORAL NEEDED EVERY 6 HOURS 2 TABLET 405382 RxNorm TAKE 2 TABLET (OR 3 TABLETS regular strength 325mg) ORAL EVERY 6 HOURS FOR 1-2 DAYS THEN NEEDED FOR Fever/Pain (NEXT DOSES 6AM AND 12 NOON) Ibuprofen 200MG Oral Tablet 03/18/2024 03/18/20 24 ORAL EVERY 6 HOURS 2 TABLET 915866 RxNorm TAKE 2 TABLET ORAL EVERY 6 HOURS FOR 24 HOURS THEN NEEDED. (NEXT DOSES at 4AM AND 10AM) Aspirin 81MG Oral Tablet, Enteric Coated 03/19/2024 Unknown ORAL DAILY 81 MILLIGRAMS 776299 RxNorm TAKE 81 MILLIGRAMS ORAL DAILY Carvedilol 6.25MG Oral Tablet 03/19/2024 Unknown ORAL TWICE A DAY 6.25 MILLIGRAMS 475622 RxNorm TAKE 6.25 MILLIGRAMS ORAL TWICE A DAY Fish Oil [place]-3 1000 MG Oral Capsule, Liquid Filled 03/19/2024 Unknown ORAL DAILY 1000 MG RxNorm TAKE 10 00 MG ORAL DAILY Gabapentin 600MG Oral Tablet 03/19/2024 Unknown ORAL TWICE A DAY 600 MILLIGRAMS 024060 RxNorm TAKE 600 MILLIGRAMS ORAL TWICE A DAY Lisinopril 10MG Oral Tablet 03/19/2024 Unknown ORAL DAILY 10 MILLIGRAMS 214260 RxNorm TAKE 10 MILLIGRAMS ORAL DAILY Multiple [...] Tablet 03/19/2024 Unknown ORAL BEDTIME 0.5 MILLIGRAMS 076970 RxNorm TAKE 0.5 MILLIGRAMS ORAL BEDTIME Ventolin HFA 0.09MG/1Actuat ion Inhalation Suspension 03/19/2024 Unknown INHALA TION NEEDED EVERY 4 HOURS 2 unit(s) 860661 RxNorm 2 EACH INHALATION NEEDED EVERY 4 HOURS Victoza 6MG/1ML Subcutaneous Solution 03/19/2024 Unknown SUBCUT ANEOUS 1.8 MILLILITERS 179015 RxNorm INJECT 1.8 MILLILITERS SUBCUTANEOU S Cefdinir [...] Code Code System URINARY TRACT INFECTION active 881977 05 SNOMED-CT HYPOTENSION active 55733497 SNOMED-C T HYPOKALEMIA active 59590288 SNOMED-C T SEPSIS active 19932537 SNOMED-CT CIRRHOSIS - NON-ALCOHOLIC 01/02/2022 resolved 266 053267 SNOMED-CT HTN 08/20/2019 resolved 95101031 SNOMED-CT HIGH CHOLESTEROL 10/01/2023 resolved 54140684 SN OMED-CT PERSONAL HISTORY OF BLADDER CA 08/20/2019 resolved 947741986 SNOMED-CT NON-INSULIN DEPENDENT DIABETES MELLITUS 08/20/2019 resolved 81895727 SNOMED-CT 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 717219245 SNOMED-CT Allergies and Adverse Reactions Allergy Substance Reaction Severity Start Date Concern Status Co de Code System CODEINE Active 6890 RxNorm Plan of Treatment NM MPI STR/RST 05/15/2023 CT CHEST W/O CONTRAST 05/18/2022 CT CHEST W/O CONTRAST 03/26/2022 MRI BRAIN W/O CONTRAST 01/25/2021 Encounters Encounter Diagnosis Start Date Code Code Sys tem Chest pain 05/06/2023 41915044 SNOMED-CT Personal Care Team Section Performer Name Performer Role Active Date Inactive Da lanette
--- OUTSIDE RECORDS SUMMARY | 2024-04-16 15:34 | XMS_ITS ---
Author Organization Unknown Address [address] [place] [address] [phone] Phone Care Team Providers Care Scarifier Operator Name Role Phone MCCORMACK CRYSTAL Gallo Attending Unavailable ERAN Viera Primary Unavailable Results TROPONIN HIGH SENSITIVITY* - Collect Date/Time: 08/28/2023 12:51 [facility] ID: [id number] [address] [place] [address], [address] LOINC: 16018-2 Test Value Unit Reference Range Code Code System Flag TROPONIN HS < 4.0 pg/mL L=0.0 H=60.4 Specimen seq. RANDOM LIPID PANEL* - Collect Date/ Time: 08/28/2023 12:51 [facility] ID: [id number] [address] [place] [address], [id number] LOINC: Test Value Unit Reference Range Code Code System Flag FASTING STATUS: NON FASTING CHOLESTEROL 98 mg/dL L=0 H=200 2093-3 LOINC TRIGLYCERIDES 155 mg/dL L=57 H=256 2571-8 LOINC HDL 41 mg/dL L=38 H=92 2085-9 LOINC non-HDL-C 57 mg/dL L=0 H=160 66263-8 LOINC LDL (CALC) 26 mg/dL L=0 H=130 20702-7 LOINC % HDL 41.8 % Chol/HDL Ratio 2.4 L=0.0 H=4.4 9830-1 LOINC CHD Relative Risk 0.5 x Avg L=0.0 H=1.0 LDL/HDL Ratio 0.6 L=0.0 H=3.2 98642-6 LOINC CHD Relative Risk. 0.2 x Avg L=0.0 H=1.0 HEPATIC FUNCTION PANEL - Col lect Date/Time: 08/28/2023 12:51 [facility] ID: [id number] [address] [place], [place], [id number] LOINC: 79379-0 Test Value Unit Reference Range Code Code [...] DIFFERENTIAL* - Colle ct Date/Time: 08/28/2023 12:51 [facility] ID: [id number] [address] [place], [place], [address] LOINC: 74947-9 Test Value Unit Reference Range Code Code System Flag WBC 4.62 th/cmm L=5.00 H=10.00 6690-2 LOINC L NEUT % 60.7 % L=40.0 H=80.0 LYMPH % 29.2 % L=10.0 H=50.0 MONO % 8.2 % L=2.0 H=12.0 44940-3 LOINC EOS % 1.3 % L=0.0 H=8.0 BASO % 0.4 % L=0.0 H=3.0 IG % 0.2 % L=0.0 H=1.1 2514-8 LOINC NRBC % 0.0 % L=0.0 H=0.0 36292-9 LOINC NEUT abs count 2.8 th/cmm L=1.6 H=8.4 751-8 LOINC LYMPH abs count 1.4 th/cmm L=1.5 H=4.0 731-0 LOINC L MONO abs count 0.4 th/cmm L=0.2 H=1.0 742-7 LOINC EOS abs count 0.1 th/cmm L=0.0 H=0.5 711-2 LOINC BASO abs count 0.0 th/cmm L=0.0 H=0.2 704-7 LOINC IG abs count 0.0 th/cmm L=0.0 H=0.1 31805-5 LOINC NRBC abs count 0.0 mil/cmm L=0.0 H=0.0 28373-1 LOINC RBC 4.10 mil/cmm L=3.90 H=5.40 789-8 [...] [place]PTI [place]) - Collect Date/Time: 08/28/2023 12:51 [facility] ID: [id number] [address] [place] [address], [address] LOINC: 99267-7 Test Value Unit Reference Range Code Code System Flag NT-proBNP 205.0 pg/mL L=0.0 H=450 00766-4 LOINC BASIC METABOLIC PANEL (BMP) - Collect Date/Time: 08/28/2023 12:51 [facility] ID: [id number] [address] [place] [address], [address] LOINC: 58185-7 Test Value Unit Reference Range Code Code [...] H=34 2028-9 LOINC ANION GAP 9.4 mmol/L 05008-7 LOINC CALCIUM SERUM 9.7 mg/dL L=8.2 H=10.2 47262-6 LOINC AGE 83 years eGFR (non-Afr.Amer.) 71 mL/min 97357-9 LOINC eGFR (Afr-British) 86 mL/min 70179-7 LOINC Social History Type Status Start Date End Date Code Code Syst em Smoking History Never smoker (Never Smoked) 952256782 SNOMED CT Sex Female Medications Medication Start Date End Date Route Frequency Dose Code Code System Medication Instructions Home Meds Atorvastatin Calcium 20MG Oral Tablet 08/20/2019 Unknown ORAL BEDTIME 20 MILLIGRAMS 175875 RxNorm TAKE 20 MILLIGRAMS ORAL BEDTIME Fish Oil 1000MG Oral Capsule, Liquid Filled 08/20/2019 03/18/20 24 ORAL DAILY 3 CAPSULE 841222 RxNorm TAKE 3 CAPSULE ORAL DAILY Gabapentin 800MG Oral Tablet 08/20/2019 03/18/20 24 ORAL TWICE A DAY 1 TABLET 890823 RxNorm TAKE 1 TABLET ORAL TWICE A DAY Lisinopril 20MG Oral Tablet 08/20/2019 03/18/20 24 ORAL DAILY 20 MILLIGRAMS 441350 RxNorm TAKE 20 MILLIGRAMS ORAL DAILY Multiple Vitamin Formula Oral Tablet 08/20/2019 03/18/20 24 ORAL DAILY 1 unit(s) 2011737 RxNorm TAKE 1 EACH ORAL DAILY Pramipexole Dihydrochlorid e 0.125MG Oral Tablet 08/20/2019 09/30/19 24 ORAL BEDTIME 2 TABLET 875840 RxNorm TAKE 2 TABLET ORAL BEDTIME glipiZIDE 10MG Oral Tablet, Extended Release 08/20/2019 Unknown ORAL DAILY 10 MILLIGRAMS 284385 RxNorm TAKE 10 MILLIGRAMS ORAL DAILY metFORMIN HCl 1000MG Oral Tablet 08/20/2019 Unknown ORAL TWICE A DAY WITH FOOD 1000 MILLIGRAMS 400633 RxNorm TAKE 1000 MILLIGRAMS ORAL TWICE A DAY WITH FOOD Keflex 500MG Oral Capsule 01/02/2022 09/30/19 24 ORAL THREE TIMES A DAY 1 CAPSULE 212525 RxNorm TAKE 1 CAPSULE ORAL THREE TIMES A DAY Nystatin 780171T/1ML Oral Suspension 01/02/2022 09/30/19 24 ORAL FOUR TIMES A DAY 5 mL 259740 RxNorm TAKE 5 mL ORAL FOUR TIMES A DAY Cephalexin 500MG Oral Tablet 03/17/2024 03/19/20 24 ORAL TWICE A DAY 1 TABLET 115439 RxNorm TAKE 1 TABLET ORAL TWICE A DAY x 7 days Acetaminophen 500MG Oral Tablet 03/18/2024 03/18/20 24 ORAL NEEDED EVERY 6 HOURS 2 TABLET 362971 RxNorm TAKE 2 TABLET (OR 3 TABLETS regular strength 325mg) ORAL EVERY 6 HOURS FOR 1-2 DAYS THEN NEEDED FOR Fever/Pain (NEXT DOSES 6AM AND 12 NOON) Ibuprofen 200MG Oral Tablet 03/18/2024 03/18/20 24 ORAL EVERY 6 HOURS 2 TABLET 860773 RxNorm TAKE 2 TABLET ORAL EVERY 6 HOURS FOR 24 HOURS THEN NEEDED. (NEXT DOSES at 4AM AND 10AM) Aspirin 81MG Oral Tablet, Enteric Coated 03/19/2024 Unknown ORAL DAILY 81 MILLIGRAMS 622472 RxNorm TAKE 81 MILLIGRAMS ORAL DAILY Carvedilol 6.25MG Oral Tablet 03/19/2024 Unknown ORAL TWICE A DAY 6.25 MILLIGRAMS 393190 RxNorm TAKE 6.25 MILLIGRAMS ORAL TWICE A DAY Fish Oil [place]-3 1000 MG Oral Capsule, Liquid Filled 03/19/2024 Unknown ORAL DAILY 1000 MG RxNorm TAKE 10 00 MG ORAL DAILY Gabapentin 600MG Oral Tablet 03/19/2024 Unknown ORAL TWICE A DAY 600 MILLIGRAMS 178314 RxNorm TAKE 600 MILLIGRAMS ORAL TWICE A DAY Lisinopril 10MG Oral Tablet 03/19/2024 Unknown ORAL DAILY 10 MILLIGRAMS 756199 RxNorm TAKE 10 MILLIGRAMS ORAL DAILY Multiple [...] Tablet 03/19/2024 Unknown ORAL BEDTIME 0.5 MILLIGRAMS 770082 RxNorm TAKE 0.5 MILLIGRAMS ORAL BEDTIME Ventolin HFA 0.09MG/1Actuat ion Inhalation Suspension 03/19/2024 Unknown INHALA TION NEEDED EVERY 4 HOURS 2 unit(s) 607377 RxNorm 2 EACH INHALATION NEEDED EVERY 4 HOURS Victoza 6MG/1ML Subcutaneous Solution 03/19/2024 Unknown SUBCUT ANEOUS 1.8 MILLILITERS 845349 RxNorm INJECT 1.8 MILLILITERS SUBCUTANEOU S Cefdinir [...] Code Code System URINARY TRACT INFECTION active 529989 05 SNOMED-CT HYPOTENSION active 54254428 SNOMED-C T HYPOKALEMIA active 99712132 SNOMED-C T SEPSIS active 68910703 SNOMED-CT CIRRHOSIS - NON-ALCOHOLIC 01/02/2022 resolved 266 782206 SNOMED-CT HTN 08/20/2019 resolved 03916403 SNOMED-CT HIGH CHOLESTEROL 10/01/2023 resolved 78302716 SN OMED-CT PERSONAL HISTORY OF BLADDER CA 08/20/2019 resolved 800008769 SNOMED-CT NON-INSULIN DEPENDENT DIABETES MELLITUS 08/20/2019 resolved 40216848 SNOMED-CT 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 197115253 SNOMED-CT Allergies and Adverse Reactions Allergy Substance Reaction Severity Start Date Concern Status Co de Code System CODEINE Active 2670 RxNorm Plan of Treatment NM MPI STR/RST 05/15/2023 CT CHEST W/O CONTRAST 05/18/2022 CT CHEST W/O CONTRAST 03/26/2022 MRI BRAIN W/O CONTRAST 01/25/2021 Encounters Encounter Diagnosis Start Date Code Code Sys tem Dyspnea 08/28/2023 [id number] SNOMED-CT Personal Care Team Section Performer Name Performer Role Active Date Inactive Da lanette
--- OUTSIDE RECORDS SUMMARY | 2024-04-16 15:34 | XMS_ITS ---
Author Organization Unknown Address [address] [place] [address] [phone] Phone Care Team Providers Care Renal Dietitian Name Role Phone MCCORMACK CRYSTAL Gallo Attending Unavailable ERAN Viera Primary Unavailable Results TSH THYROID STIMULATING HORM ONE* - Collect Date/Time: 05/21/2023 11:48 [facility] ID: [id number] [address] [place] [address], [address] LOINC: 3014-8 Test Value Unit Reference Range Code Code System Flag TSH 2.546 uIU/mL L=0.360 H=3.740 3014-8 LOINC TROPONIN HIGH SENSITIVITY* - Collect Date/Time: 05/21/2023 11:48 [facility] ID: [id number] [address] [place] [address], [address] LOINC: 44799-9 Test Value Unit Reference Range Code Code System Flag TROPONIN HS 5.1 pg/mL L=0.0 H=60.4 Specimen seq. RANDOM BNP (PRO-B NATRIURETIC PEPTI DE) - Collect Date/Time: 05/21/2023 11:48 [facility] ID: [id number] [address] [place] [address], [address] LOINC: 68582-6 Test Value Unit Reference Range Code Code System Flag NT-proBNP 118.0 pg/mL L=0.0 H=450 75506-7 LOINC CBC W/ DIFFERENTIAL* - Colle ct Date/Time: 05/21/2023 11:48 [facility] ID: [id number] [address] [place] [address] [place], [address] LOINC: 80543-8 Test Value Unit Reference Range Code Code System Flag WBC 5.04 th/cmm L=5.00 H=10.00 6690-2 LOINC NEUT % 57.1 % L=40.0 H=80.0 LYMPH % 26.0 % L=10.0 H=50.0 MONO % 11.5 % L=2.0 H=12.0 76275-2 LOINC EOS % 4.4 % L=0.0 H=8.0 BASO % 0.8 % L=0.0 H=3.0 IG % 0.2 % L=0.0 H=1.1 2514-8 LOINC NRBC % 0.0 % L=0.0 H=0.0 56967-1 LOINC NEUT abs count 2.9 th/cmm L=1.6 H=8.4 751-8 LOINC LYMPH abs count 1.3 th/cmm L=1.5 H=4.0 731-0 LOINC L MONO abs count 0.6 th/cmm L=0.2 H=1.0 742-7 LOINC EOS abs count 0.2 th/cmm L=0.0 H=0.5 711-2 LOINC BASO abs count 0.0 th/cmm L=0.0 H=0.2 704-7 LOINC IG abs count 0.0 th/cmm L=0.0 H=0.1 17426-5 LOINC NRBC abs count 0.0 mil/cmm L=0.0 H=0.0 24460-5 LOINC RBC 4.15 mil/cmm L=3.90 H=5.40 789-8 [...] PANEL (BMP) - Collect Date/Time: 05/21/2023 11:48 [facility] ID: [id number] [address] [place], [place], [address] LOINC: 49762-1 Test Value Unit Reference Range Code Code [...] H=34 2028-9 LOINC ANION GAP 7.7 mmol/L 70195-3 LOINC CALCIUM SERUM 9.4 mg/dL L=8.2 H=10.2 19544-4 LOINC AGE 82 years eGFR (non-Afr.Amer.) 64 mL/min 60608-8 LOINC eGFR (Afr-Libyan) 78 mL/min 13038-9 LOINC Social History Type Status Start Date End Date Code Code Syst em Smoking History Never smoker (Never Smoked) 607825830 SNOMED CT Sex Female Medications Medication Start Date End Date Route Frequency Dose Code Code System Medication Instructions Home Meds Atorvastatin Calcium 20MG Oral Tablet 08/20/2019 Unknown ORAL BEDTIME 20 MILLIGRAMS 610765 RxNorm TAKE 20 MILLIGRAMS ORAL BEDTIME Fish Oil 1000MG Oral Capsule, Liquid Filled 08/20/2019 03/18/20 24 ORAL DAILY 3 CAPSULE 014309 RxNorm TAKE 3 CAPSULE ORAL DAILY Gabapentin 800MG Oral Tablet 08/20/2019 03/18/20 24 ORAL TWICE A DAY 1 TABLET 860842 RxNorm TAKE 1 TABLET ORAL TWICE A DAY Lisinopril 20MG Oral Tablet 08/20/2019 03/18/20 24 ORAL DAILY 20 MILLIGRAMS 474548 RxNorm TAKE 20 MILLIGRAMS ORAL DAILY Multiple Vitamin Formula Oral Tablet 08/20/2019 03/18/20 24 ORAL DAILY 1 unit(s) 3270197 RxNorm TAKE 1 EACH ORAL DAILY Pramipexole Dihydrochlorid e 0.125MG Oral Tablet 08/20/2019 09/30/19 24 ORAL BEDTIME 2 TABLET 179309 RxNorm TAKE 2 TABLET ORAL BEDTIME glipiZIDE 10MG Oral Tablet, Extended Release 08/20/2019 Unknown ORAL DAILY 10 MILLIGRAMS 571677 RxNorm TAKE 10 MILLIGRAMS ORAL DAILY metFORMIN HCl 1000MG Oral Tablet 08/20/2019 Unknown ORAL TWICE A DAY WITH FOOD 1000 MILLIGRAMS 939340 RxNorm TAKE 1000 MILLIGRAMS ORAL TWICE A DAY WITH FOOD Keflex 500MG Oral Capsule 01/02/2022 09/30/19 24 ORAL THREE TIMES A DAY 1 CAPSULE 484255 RxNorm TAKE 1 CAPSULE ORAL THREE TIMES A DAY Nystatin 227131E/1ML Oral Suspension 01/02/2022 09/30/19 24 ORAL FOUR TIMES A DAY 5 mL 437473 RxNorm TAKE 5 mL ORAL FOUR TIMES A DAY Cephalexin 500MG Oral Tablet 03/17/2024 03/19/20 24 ORAL TWICE A DAY 1 TABLET 465659 RxNorm TAKE 1 TABLET ORAL TWICE A DAY x 7 days Acetaminophen 500MG Oral Tablet 03/18/2024 03/18/20 24 ORAL NEEDED EVERY 6 HOURS 2 TABLET 917619 RxNorm TAKE 2 TABLET (OR 3 TABLETS regular strength 325mg) ORAL EVERY 6 HOURS FOR 1-2 DAYS THEN NEEDED FOR Fever/Pain (NEXT DOSES 6AM AND 12 NOON) Ibuprofen 200MG Oral Tablet 03/18/2024 03/18/20 24 ORAL EVERY 6 HOURS 2 TABLET 816784 RxNorm TAKE 2 TABLET ORAL EVERY 6 HOURS FOR 24 HOURS THEN NEEDED. (NEXT DOSES at 4AM AND 10AM) Aspirin 81MG Oral Tablet, Enteric Coated 03/19/2024 Unknown ORAL DAILY 81 MILLIGRAMS 313780 RxNorm TAKE 81 MILLIGRAMS ORAL DAILY Carvedilol 6.25MG Oral Tablet 03/19/2024 Unknown ORAL TWICE A DAY 6.25 MILLIGRAMS 858121 RxNorm TAKE 6.25 MILLIGRAMS ORAL TWICE A DAY Fish Oil [place]-3 1000 MG Oral Capsule, Liquid Filled 03/19/2024 Unknown ORAL DAILY 1000 MG RxNorm TAKE 10 00 MG ORAL DAILY Gabapentin 600MG Oral Tablet 03/19/2024 Unknown ORAL TWICE A DAY 600 MILLIGRAMS 227939 RxNorm TAKE 600 MILLIGRAMS ORAL TWICE A DAY Lisinopril 10MG Oral Tablet 03/19/2024 Unknown ORAL DAILY 10 MILLIGRAMS 968345 RxNorm TAKE 10 MILLIGRAMS ORAL DAILY Multiple [...] Tablet 03/19/2024 Unknown ORAL BEDTIME 0.5 MILLIGRAMS 383641 RxNorm TAKE 0.5 MILLIGRAMS ORAL BEDTIME Ventolin HFA 0.09MG/1Actuat ion Inhalation Suspension 03/19/2024 Unknown INHALA TION NEEDED EVERY 4 HOURS 2 unit(s) 871648 RxNorm 2 EACH INHALATION NEEDED EVERY 4 HOURS Victoza 6MG/1ML Subcutaneous Solution 03/19/2024 Unknown SUBCUT ANEOUS 1.8 MILLILITERS 750382 RxNorm INJECT 1.8 MILLILITERS SUBCUTANEOU S Cefdinir [...] Code Code System URINARY TRACT INFECTION active 637929 05 SNOMED-CT HYPOTENSION active 12603890 SNOMED-C T HYPOKALEMIA active 88597318 SNOMED-C T SEPSIS active 43145283 SNOMED-CT CIRRHOSIS - NON-ALCOHOLIC 01/02/2022 resolved 266 862936 SNOMED-CT HTN 08/20/2019 resolved 09811292 SNOMED-CT HIGH CHOLESTEROL 10/01/2023 resolved 07535915 SN OMED-CT PERSONAL HISTORY OF BLADDER CA 08/20/2019 resolved 284939176 SNOMED-CT NON-INSULIN DEPENDENT DIABETES MELLITUS 08/20/2019 resolved 33454648 SNOMED-CT 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 017876592 SNOMED-CT Allergies and Adverse Reactions Allergy Substance Reaction Severity Start Date Concern Status Co de Code System CODEINE Active 4630 RxNorm Plan of Treatment NM MPI STR/RST 05/15/2023 CT CHEST W/O CONTRAST 05/18/2022 CT CHEST W/O CONTRAST 03/26/2022 MRI BRAIN W/O CONTRAST 01/25/2021 Encounters Encounter Diagnosis Start Date Code Code Sys tem Dyspnea 05/21/2023 586102048 SNOMED-CT Personal Care Team Section Performer Name Performer Role Active Date Inactive Da te
--- OUTSIDE RECORDS SUMMARY | 2024-04-16 15:34 | XMS_ITS ---
Author Organization Unknown Address [address] [place] [address] [phone] Phone Care Team Providers Care Crew Person Name Role Phone LYNN VILLEDA Attending Unavailable ERAN Viera Primary Unavailable Results NM MPI COMPLETE - Completed: 05/15/2023 15:43 LOINC: [place], [place] [address] PACS HAND THERAPIST REPORT Patient Name: NICK MENDIETA MRN: Sex: : Age: [id number] F 1940 82 Account: Accession: Admit: StayType: [id number] 05/15/2023 CLINIC Ordered: Order ID: Submitted: Ordering Provider: 05/15/2023 14:10 [id number] HTP CHRISTIANA BAILEY Completed: Technologist: Resulted: 05/15/2023 15:43 HTP 05/15/2023 16:13 Exercise Nuclear Stress Test Date: 05/15/2023 02:18 PM EST Ordering Provider: CHRISTIANA BAILEY Referring Provider: CHRISTIANA BAILYE ID number: [id number] Date of : 1940 Age: 82Y Indication [...] em Smoking History Never smoker (Never Smoked) [id number] SNOMED CT Sex Female Medications Medication Start Date End Date Route Frequency Dose Code Code System Medication Instructions Home Meds Atorvastatin Calcium 20MG Oral Tablet 08/20/2019 Unknown ORAL BEDTIME 20 MILLIGRAMS 915781 RxNorm TAKE 20 MILLIGRAMS ORAL BEDTIME Fish Oil 1000MG Oral Capsule, Liquid Filled 08/20/2019 03/18/20 24 ORAL DAILY 3 CAPSULE 843765 RxNorm TAKE 3 CAPSULE ORAL DAILY Gabapentin 800MG Oral Tablet 08/20/2019 03/18/20 24 ORAL TWICE A DAY 1 TABLET 767654 RxNorm TAKE 1 TABLET ORAL TWICE A DAY Lisinopril 20MG Oral Tablet 08/20/2019 03/18/20 24 ORAL DAILY 20 MILLIGRAMS 510488 RxNorm TAKE 20 MILLIGRAMS ORAL DAILY Multiple Vitamin Formula Oral Tablet 08/20/2019 03/18/20 24 ORAL DAILY 1 unit(s) 3058785 RxNorm TAKE 1 EACH ORAL DAILY Pramipexole Dihydrochlorid e 0.125MG Oral Tablet 08/20/2019 09/30/19 24 ORAL BEDTIME 2 TABLET 377790 RxNorm TAKE 2 TABLET ORAL BEDTIME glipiZIDE 10MG Oral Tablet, Extended Release 08/20/2019 Unknown ORAL DAILY 10 MILLIGRAMS 075360 RxNorm TAKE 10 MILLIGRAMS ORAL DAILY metFORMIN HCl 1000MG Oral Tablet 08/20/2019 Unknown ORAL TWICE A DAY WITH FOOD 1000 MILLIGRAMS 004864 RxNorm TAKE 1000 MILLIGRAMS ORAL TWICE A DAY WITH FOOD Keflex 500MG Oral Capsule 01/02/2022 09/30/19 24 ORAL THREE TIMES A DAY 1 CAPSULE 089723 RxNorm TAKE 1 CAPSULE ORAL THREE TIMES A DAY Nystatin 560434L/1ML Oral Suspension 01/02/2022 09/30/19 24 ORAL FOUR TIMES A DAY 5 mL 575681 RxNorm TAKE 5 mL ORAL FOUR TIMES A DAY Cephalexin 500MG Oral Tablet 03/17/2024 03/19/20 24 ORAL TWICE A DAY 1 TABLET 836172 RxNorm TAKE 1 TABLET ORAL TWICE A DAY x 7 days Acetaminophen 500MG Oral Tablet 03/18/2024 03/18/20 24 ORAL NEEDED EVERY 6 HOURS 2 TABLET 237834 RxNorm TAKE 2 TABLET (OR 3 TABLETS regular strength 325mg) ORAL EVERY 6 HOURS FOR 1-2 DAYS THEN NEEDED FOR Fever/Pain (NEXT DOSES 6AM AND 12 NOON) Ibuprofen 200MG Oral Tablet 03/18/2024 03/18/20 24 ORAL EVERY 6 HOURS 2 TABLET 633555 RxNorm TAKE 2 TABLET ORAL EVERY 6 HOURS FOR 24 HOURS THEN NEEDED. (NEXT DOSES at 4AM AND 10AM) Aspirin 81MG Oral Tablet, Enteric Coated 03/19/2024 Unknown ORAL DAILY 81 MILLIGRAMS 254238 RxNorm TAKE 81 MILLIGRAMS ORAL DAILY Carvedilol 6.25MG Oral Tablet 03/19/2024 Unknown ORAL TWICE A DAY 6.25 MILLIGRAMS 533240 RxNorm TAKE 6.25 MILLIGRAMS ORAL TWICE A DAY Fish Oil [place]-3 1000 MG Oral Capsule, Liquid Filled 03/19/2024 Unknown ORAL DAILY 1000 MG RxNorm TAKE 10 00 MG ORAL DAILY Gabapentin 600MG Oral Tablet 03/19/2024 Unknown ORAL TWICE A DAY 600 MILLIGRAMS 961751 RxNorm TAKE 600 MILLIGRAMS ORAL TWICE A DAY Lisinopril 10MG Oral Tablet 03/19/2024 Unknown ORAL DAILY 10 MILLIGRAMS 513760 RxNorm TAKE 10 MILLIGRAMS ORAL DAILY Multiple [...] Tablet 03/19/2024 Unknown ORAL BEDTIME 0.5 MILLIGRAMS 566409 RxNorm TAKE 0.5 MILLIGRAMS ORAL BEDTIME Ventolin HFA 0.09MG/1Actuat ion Inhalation Suspension 03/19/2024 Unknown INHALA TION NEEDED EVERY 4 HOURS 2 unit(s) 716541 RxNorm 2 EACH INHALATION NEEDED EVERY 4 HOURS Victoza 6MG/1ML Subcutaneous Solution 03/19/2024 Unknown SUBCUT ANEOUS 1.8 MILLILITERS 951382 RxNorm INJECT 1.8 MILLILITERS SUBCUTANEOU S Cefdinir [...] Code Code System URINARY TRACT INFECTION active 843096 05 SNOMED-CT HYPOTENSION active 11844408 SNOMED-C T HYPOKALEMIA active 55176331 SNOMED-C T SEPSIS active 45049911 SNOMED-CT CIRRHOSIS - NON-ALCOHOLIC 01/02/2022 resolved 266 996195 SNOMED-CT HTN 08/20/2019 resolved 53912053 SNOMED-CT HIGH CHOLESTEROL 10/01/2023 resolved 86523042 SN OMED-CT PERSONAL HISTORY OF BLADDER CA 08/20/2019 resolved 044465720 SNOMED-CT NON-INSULIN DEPENDENT DIABETES MELLITUS 08/20/2019 resolved 88951729 SNOMED-CT 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 524768296 SNOMED-CT Allergies and Adverse Reactions Allergy Substance [...]
--- OUTSIDE RECORDS SUMMARY | 2024-04-16 15:35 | XMS_ITS ---
Author Organization Unknown Address [address] [place] [address] [phone] Phone Care Team Providers Care Allied Health Professional Name Role Phone KSENIA Gallo Attending Unavailable ERAN Viera Primary Unavailable Social History Type Status Start Date End Date Code Code Syst em Smoking History Never smoker (Never Smoked) [id number] SNOMED CT Sex Female Medications Medication Start Date End Date Route Frequency Dose Code Code System Medication Instructions Home Meds Atorvastatin Calcium 20MG Oral Tablet 08/20/2019 Unknown ORAL BEDTIME 20 MILLIGRAMS 067541 RxNorm TAKE 20 MILLIGRAMS ORAL BEDTIME Fish Oil 1000MG Oral Capsule, Liquid Filled 08/20/2019 03/18/20 24 ORAL DAILY 3 CAPSULE 846553 RxNorm TAKE 3 CAPSULE ORAL DAILY Gabapentin 800MG Oral Tablet 08/20/2019 03/18/20 24 ORAL TWICE A DAY 1 TABLET 875598 RxNorm TAKE 1 TABLET ORAL TWICE A DAY Lisinopril 20MG Oral Tablet 08/20/2019 03/18/20 24 ORAL DAILY 20 MILLIGRAMS 929589 RxNorm TAKE 20 MILLIGRAMS ORAL DAILY Multiple Vitamin Formula Oral Tablet 08/20/2019 03/18/20 24 ORAL DAILY 1 unit(s) 7247205 RxNorm TAKE 1 EACH ORAL DAILY glipiZIDE 10MG Oral Tablet, Extended Release 08/20/2019 Unknown ORAL DAILY 10 MILLIGRAMS 900327 RxNorm TAKE 10 MILLIGRAMS ORAL DAILY metFORMIN HCl 1000MG Oral Tablet 08/20/2019 Unknown ORAL TWICE A DAY WITH FOOD 1000 MILLIGRAMS 433952 RxNorm TAKE 1000 MILLIGRAMS ORAL TWICE A DAY WITH FOOD Cephalexin 500MG Oral Tablet 03/17/2024 03/19/20 24 ORAL TWICE A DAY 1 TABLET 875806 RxNorm TAKE 1 TABLET ORAL TWICE A DAY x 7 days Acetaminophen 500MG Oral Tablet 03/18/2024 03/18/20 24 ORAL NEEDED EVERY 6 HOURS 2 TABLET 821115 RxNorm TAKE 2 TABLET (OR 3 TABLETS regular strength 325mg) ORAL EVERY 6 HOURS FOR 1-2 DAYS THEN NEEDED FOR Fever/Pain (NEXT DOSES 6AM AND 12 NOON) Ibuprofen 200MG Oral Tablet 03/18/2024 03/18/20 24 ORAL EVERY 6 HOURS 2 TABLET 614513 RxNorm TAKE 2 TABLET ORAL EVERY 6 HOURS FOR 24 HOURS THEN NEEDED. (NEXT DOSES at 4AM AND 10AM) Aspirin 81MG Oral Tablet, Enteric Coated 03/19/2024 Unknown ORAL DAILY 81 MILLIGRAMS 796722 RxNorm TAKE 81 MILLIGRAMS ORAL DAILY Carvedilol 6.25MG Oral Tablet 03/19/2024 Unknown ORAL TWICE A DAY 6.25 MILLIGRAMS 19990607 RxNorm TAKE 6.25 MILLIGRAMS ORAL TWICE A DAY Fish Oil [place]-3 1000 MG Oral Capsule, Liquid Filled 03/19/2024 Unknown ORAL DAILY 1000 MG RxNorm TAKE 10 00 MG ORAL DAILY Gabapentin 600MG Oral Tablet 03/19/2024 Unknown ORAL TWICE A DAY 600 MILLIGRAMS 933331 RxNorm TAKE 600 MILLIGRAMS ORAL TWICE A DAY Lisinopril 10MG Oral Tablet 03/19/2024 Unknown ORAL DAILY 10 MILLIGRAMS 804442 RxNorm TAKE 10 MILLIGRAMS ORAL DAILY Multiple Vitamins Oral Tablet 03/19/2024 Unknown ORAL DAILY 1 unit(s) RxNorm TAKE 1 EACH ORAL DAILY Nitroglycerin 0.4MG Sublingual Tablet 03/19/2024 Unknown SUBLIN GUAL NEEDED 0.4 MILLIGRAMS 786253 RxNorm DISSOLVE 0.4 MILLIGRAMS SUBLINGUAL NEEDED Omeprazole 40MG Oral Capsule, Delayed Release 03/19/2024 Unknown ORAL DAILY 40 MILLIGRAMS 20020517 RxNorm TAKE 40 MILLIGRAMS ORAL DAILY Pramipexole Dihydrochlorid e 0.5MG Oral Tablet 03/19/2024 Unknown ORAL BEDTIME 0.5 MILLIGRAMS 351831 RxNorm TAKE 0.5 MILLIGRAMS ORAL BEDTIME Ventolin HFA 0.09MG/1Actuat ion Inhalation Suspension 03/19/2024 Unknown INHALA TION NEEDED EVERY 4 HOURS 2 unit(s) 393968 RxNorm 2 EACH INHALATION NEEDED EVERY 4 HOURS Victoza 6MG/1ML Subcutaneous Solution 03/19/2024 Unknown SUBCUT ANEOUS 1.8 MILLILITERS 403765 RxNorm INJECT 1.8 MILLILITERS SUBCUTANEOU S Cefdinir [...] Code Code System URINARY TRACT INFECTION active 389033 05 SNOMED-CT HYPOTENSION active 02668057 SNOMED-C T HYPOKALEMIA active 65824417 SNOMED-C T SEPSIS active 98219706 SNOMED-CT CIRRHOSIS - NON-ALCOHOLIC 01/02/2022 resolved 266 872365 SNOMED-CT HTN 08/20/2019 resolved 12046951 SNOMED-CT HIGH CHOLESTEROL 10/01/2023 resolved 93698331 SN OMED-CT PERSONAL HISTORY OF BLADDER CA 08/20/2019 resolved 463963898 SNOMED-CT NON-INSULIN DEPENDENT DIABETES MELLITUS 08/20/2019 resolved 37784079 SNOMED-CT 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 043285109 SNOMED-CT Allergies and Adverse Reactions Allergy Substance Reaction Severity Start Date Concern Status Co de Code System CODEINE Active 2670 RxNorm Plan of Treatment NM MPI STR/RST 05/15/2023 CT CHEST W/O CONTRAST 05/18/2022 CT CHEST W/O CONTRAST 03/26/2022 MRI BRAIN W/O CONTRAST 01/25/2021 Encounters Encounter Diagnosis Start Date Code Code Sys tem Aortic stenosis, non-rheumatic 11/13/2023 [id number] SNOMED-CT Personal Care Team Section Performer Name Performer Role Active Date Inactive Robbin gama
--- OUTSIDE RECORDS SUMMARY | 2024-04-16 15:35 | XMS_ITS ---
Author Organization Unknown Address [address] [place] [phone] Phone Care Team Providers Care Sign Hanger Name Role Phone DORENE WATTS Registered Nurse Unavailable FRIDA GUNN Attending Unavailable ERAN Viera Primary Unavailable UNLISTED PROVIDER - REQUESTED Xhandoff Un available Results TROPONIN HIGH SENSITIVITY* - Collect Date/Time: 09/30/2023 23:44 ID: [id number] [address] [place] [address], [address] LOINC: 74245-1 Test Value Unit Reference Range Code Code System Flag TROPONIN HS 7.2 pg/mL L=0.0 H=60.4 Specimen seq. 1 HOUR D-DIMER - Collect Date/Time: 09/30/2023 22:51 ID: [id number] [address] [place] [address], [address] LOINC: 00809-0 Test Value Unit Reference Range Code Code System Flag D-DIMER 0.57 mg/L L=0.19 H=0.50 21042-4 LOINC H TROPONIN HIGH SENSITIVITY* - Collect Date/Time: 09/30/2023 22:40 ID: [id number] [address] [place] [address], [address] LOINC: 17494-1 Test Value Unit Reference Range Code Code System Flag TROPONIN HS 7.9 pg/mL L=0.0 H=60.4 Specimen seq. RANDOM COMPREHENSIVE METABOLIC PANE L (CMP) - Collect Date/Time: 09/30/2023 22:40 ID: [id number] [address] [place], [place], [address] LOINC: 83408-4 Test Value Unit Reference Range Code Code [...] H=34 2028-9 LOINC ANION GAP 7.3 mmol/L 65818-9 LOINC CALCIUM SERUM 9.4 mg/dL L=8.2 H=10.2 67089-8 LOINC BILIRUBIN TOTAL 0.5 mg/dL L=0.0 H=1.3 1975-2 LOINC ALK. PHOS. 118 U/L L=46 H=116 6768-6 LOINC H SGOT (AST) 30 U/L L=15 H=37 1920-8 LOINC SGPT (ALT) 39 U/L L=12 H=78 1742-6 LOINC TOTAL PROTEIN 6.9 gm/dL L=6.0 H=8.0 2885-2 LOINC ALBUMIN 3.6 gm/dL L=3.4 H=5.0 1751-7 LOINC AGE 83 years eGFR (non-Afr.Amer.) 69 mL/min 66452-3 LOINC eGFR (Afr-Italian) 83 mL/min 98369-6 LOINC CBC W/ DIFFERENTIAL* - Colle ct Date/Time: 09/30/2023 22:40 ID: [id number] [address] [place], [place], [address] LOINC: 54091-4 Test Value Unit Reference Range Code Code System Flag WBC 4.90 th/cmm L=5.00 H=10.00 6690-2 LOINC L NEUT % 52.1 % L=40.0 H=80.0 LYMPH % 34.5 % L=10.0 H=50.0 MONO % 11.2 % L=2.0 H=12.0 71772-6 LOINC EOS % 1.6 % L=0.0 H=8.0 BASO % 0.4 % L=0.0 H=3.0 IG % 0.2 % L=0.0 H=1.1 2514-8 LOINC NRBC % 0.0 % L=0.0 H=0.0 52573-4 LOINC NEUT abs count 2.6 th/cmm L=1.6 H=8.4 751-8 LOINC LYMPH abs count 1.7 th/cmm L=1.5 H=4.0 731-0 LOINC MONO abs count 0.6 th/cmm L=0.2 H=1.0 742-7 LOINC EOS abs count 0.1 th/cmm L=0.0 H=0.5 711-2 LOINC BASO abs count 0.0 th/cmm L=0.0 H=0.2 704-7 LOINC IG abs count 0.0 th/cmm L=0.0 H=0.1 98972-1 LOINC NRBC abs count 0.0 mil/cmm L=0.0 H=0.0 10371-3 LOINC RBC 3.98 mil/cmm L=3.90 H=5.40 789-8 [...] IV CONTRST* - Completed: 10/01/2023 00:04 LOINC: RADIOLOGY [place], [place] [address] [facility] REPORT Patient Name: NICK MENDIETA MRN: Sex: : Age: [id number] F 1940 83 Account: Accession: Admit: StayType: [id number] 10/01/2023 E Ordered: Order ID: Submitted: Ordering Provider: 09/30/2023 23:30 [id number] LUIS A CAMARGO Completed: Technologist: Resulted: 09/30/2023 [...] (NRDR) Dose Index Registry (DIR) with the [employer] (ACR). RADIATION OPTIMIZATION: All CT scans at this facility use at least one of these dose optimization techniques: automated exposure control; mA and/or kV adjustment per patient size (includes targeted exams where dose is matched to clinical indication); or iterative reconstruction. Electronically signed by: Kris Ferguson Dictated: 10/01/2023 09:22 XR CHEST PORTABLE OR 1V - Co mpleted: 09/30/2023 22:54 LOINC: RADIOLOGY [place], [place] [address] [facility]ACS [facility]ER REPORT Patient Name: NICK MENDIETA MRN: Sex: : Age: [id number] F 1940 83 Account: Accession: Admit: StayType: [id number] 10/01/2023 E Ordered: Order ID: Submitted: Ordering Provider: 09/30/2023 22:41 [id number] LUIS A SANHCEZ Completed: Technologist: Resulted: 09/30/2023 22:51 MF 10/01/2023 [...] em Smoking History Never smoker (Never Smoked) 243990604 SNOMED CT Sex Female Vital Signs Vital Sign Value Unit Sebastian Value Sebastian Unit Date/Time Recent/Initial? Code Code System Body Mass Index 25.32 kg/m2 09/30/2023 22:42 Initial 32730 -5 LOINC Systolic Blood Pressure 126 mm[Hg] [...] Saturation 96 % 2023 02:00 Most Recent 14495 -5 LOINC O2 Saturation 99 % 2023 22:40 Initial 34860 -5 LOINC Inhaled Oxygen Flow Rate 2.00 [...] 60.78 kg 134.00 lbs 09/30/2023 22:42 Initial 26043 -7 [facility] Medications Medication Start Date End Date Route Frequency Dose Code Code System Medication Instructions Home Meds Atorvastatin Calcium 20MG Oral Tablet 08/20/2019 Unknown ORAL BEDTIME 20 MILLIGRAMS 050549 RxNorm TAKE 20 MILLIGRAMS ORAL BEDTIME Fish Oil 1000MG Oral Capsule, Liquid Filled 08/20/2019 03/18/20 24 ORAL DAILY 3 CAPSULE 785537 RxNorm TAKE 3 CAPSULE ORAL DAILY Gabapentin 800MG Oral Tablet 08/20/2019 03/18/20 24 ORAL TWICE A DAY 1 TABLET 139730 RxNorm TAKE 1 TABLET ORAL TWICE A DAY Lisinopril 20MG Oral Tablet 08/20/2019 03/18/20 24 ORAL DAILY 20 MILLIGRAMS 727329 RxNorm TAKE 20 MILLIGRAMS ORAL DAILY Multiple Vitamin Formula Oral Tablet 08/20/2019 03/18/20 24 ORAL DAILY 1 unit(s) 7087580 RxNorm TAKE 1 EACH ORAL DAILY Pramipexole Dihydrochlorid e 0.125MG Oral Tablet 08/20/2019 09/30/19 24 ORAL BEDTIME 2 TABLET 461190 RxNorm TAKE 2 TABLET ORAL BEDTIME glipiZIDE 10MG Oral Tablet, Extended Release 08/20/2019 Unknown ORAL DAILY 10 MILLIGRAMS 659932 RxNorm TAKE 10 MILLIGRAMS ORAL DAILY metFORMIN HCl 1000MG Oral Tablet 08/20/2019 Unknown ORAL TWICE A DAY WITH FOOD 1000 MILLIGRAMS 509374 RxNorm TAKE 1000 MILLIGRAMS ORAL TWICE A DAY WITH FOOD Keflex 500MG Oral Capsule 01/02/2022 09/30/19 24 ORAL THREE TIMES A DAY 1 CAPSULE 247621 RxNorm TAKE 1 CAPSULE ORAL THREE TIMES A DAY Nystatin 882617I/1ML Oral Suspension 01/02/2022 09/30/19 24 ORAL FOUR TIMES A DAY 5 mL 975091 RxNorm TAKE 5 mL ORAL FOUR TIMES A DAY Cephalexin 500MG Oral Tablet 03/17/2024 03/19/20 24 ORAL TWICE A DAY 1 TABLET 943766 RxNorm TAKE 1 TABLET ORAL TWICE A DAY x 7 days Acetaminophen 500MG Oral Tablet 03/18/2024 03/18/20 24 ORAL NEEDED EVERY 6 HOURS 2 TABLET 852063 RxNorm TAKE 2 TABLET (OR 3 TABLETS regular strength 325mg) ORAL EVERY 6 HOURS FOR 1-2 DAYS THEN NEEDED FOR Fever/Pain (NEXT DOSES 6AM AND 12 NOON) Ibuprofen 200MG Oral Tablet 03/18/2024 03/18/20 24 ORAL EVERY 6 HOURS 2 TABLET 099869 RxNorm TAKE 2 TABLET ORAL EVERY 6 HOURS FOR 24 HOURS THEN NEEDED. (NEXT DOSES at 4AM AND 10AM) Aspirin 81MG Oral Tablet, Enteric Coated 03/19/2024 Unknown ORAL DAILY 81 MILLIGRAMS 097105 RxNorm TAKE 81 MILLIGRAMS ORAL DAILY Carvedilol 6.25MG Oral Tablet 03/19/2024 Unknown ORAL TWICE A DAY 6.25 MILLIGRAMS 19990607 RxNorm TAKE 6.25 MILLIGRAMS ORAL TWICE A DAY Fish Oil [place]-3 1000 MG Oral Capsule, Liquid Filled 03/19/2024 Unknown ORAL DAILY 1000 MG RxNorm TAKE 10 00 MG ORAL DAILY Gabapentin 600MG Oral Tablet 03/19/2024 Unknown ORAL TWICE A DAY 600 MILLIGRAMS 680888 RxNorm TAKE 600 MILLIGRAMS ORAL TWICE A DAY Lisinopril 10MG Oral Tablet 03/19/2024 Unknown ORAL DAILY 10 MILLIGRAMS 017161 RxNorm TAKE 10 MILLIGRAMS ORAL DAILY Multiple Vitamins Oral Tablet 03/19/2024 Unknown ORAL DAILY 1 unit(s) RxNorm TAKE 1 EACH ORAL DAILY Nitroglycerin 0.4MG Sublingual Tablet 03/19/2024 Unknown SUBLIN GUAL NEEDED 0.4 MILLIGRAMS 056941 RxNorm DISSOLVE 0.4 MILLIGRAMS SUBLINGUAL NEEDED Omeprazole 40MG Oral Capsule, Delayed Release 03/19/2024 Unknown ORAL DAILY 40 MILLIGRAMS 20020517 RxNorm TAKE 40 MILLIGRAMS ORAL DAILY Pramipexole Dihydrochlorid e 0.5MG Oral Tablet 03/19/2024 Unknown ORAL BEDTIME 0.5 MILLIGRAMS 251808 RxNorm TAKE 0.5 MILLIGRAMS ORAL BEDTIME Ventolin HFA 0.09MG/1Actuat ion Inhalation Suspension 03/19/2024 Unknown INHALA TION NEEDED EVERY 4 HOURS 2 unit(s) 639532 RxNorm 2 EACH INHALATION NEEDED EVERY 4 HOURS Victoza 6MG/1ML Subcutaneous Solution 03/19/2024 Unknown SUBCUT ANEOUS 1.8 MILLILITERS 596053 RxNorm INJECT 1.8 MILLILITERS SUBCUTANEOU S Cefdinir [...] Code Code System URINARY TRACT INFECTION active 184164 05 SNOMED-CT HYPOTENSION active 66579637 SNOMED-C T HYPOKALEMIA active 22965584 SNOMED-C T SEPSIS active 00322672 SNOMED-CT CIRRHOSIS - NON-ALCOHOLIC 01/02/2022 resolved 266 384677 SNOMED-CT HTN 08/20/2019 resolved 09979642 SNOMED-CT HIGH CHOLESTEROL 10/01/2023 resolved 98895362 SN OMED-CT PERSONAL HISTORY OF BLADDER CA 08/20/2019 resolved 982384504 SNOMED-CT NON-INSULIN DEPENDENT DIABETES MELLITUS 08/20/2019 resolved 99989235 SNOMED-CT 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
--- OUTSIDE RECORDS SUMMARY | 2024-04-16 15:35 | XMS_ITS ---
Author Organization Unknown Address [address] [place] [phone] Phone Care Team Providers Care Deer Farmer Name Role Phone KSENIA Gallo Attending Unavailable ERAN Viera Primary Unavailable Social History Type Status Start Date End Date Code Code Syst em Smoking History Never smoker (Never Smoked) 288874828 SNOMED CT Sex Female Medications Medication Start Date End Date Route Frequency Dose Code Code System Medication Instructions Home Meds Atorvastatin Calcium 20MG Oral Tablet 08/20/2019 Unknown ORAL BEDTIME 20 MILLIGRAMS 284505 RxNorm TAKE 20 MILLIGRAMS ORAL BEDTIME Fish Oil 1000MG Oral Capsule, Liquid Filled 08/20/2019 03/18/20 24 ORAL DAILY 3 CAPSULE 399783 RxNorm TAKE 3 CAPSULE ORAL DAILY Gabapentin 800MG Oral Tablet 08/20/2019 03/18/20 24 ORAL TWICE A DAY 1 TABLET 510065 RxNorm TAKE 1 TABLET ORAL TWICE A DAY Lisinopril 20MG Oral Tablet 08/20/2019 03/18/20 24 ORAL DAILY 20 MILLIGRAMS 940906 RxNorm TAKE 20 MILLIGRAMS ORAL DAILY Multiple Vitamin Formula Oral Tablet 08/20/2019 03/18/20 24 ORAL DAILY 1 unit(s) 6754763 RxNorm TAKE 1 EACH ORAL DAILY glipiZIDE 10MG Oral Tablet, Extended Release 08/20/2019 Unknown ORAL DAILY 10 MILLIGRAMS 573301 RxNorm TAKE 10 MILLIGRAMS ORAL DAILY metFORMIN HCl 1000MG Oral Tablet 08/20/2019 Unknown ORAL TWICE A DAY WITH FOOD 1000 MILLIGRAMS 975878 RxNorm TAKE 1000 MILLIGRAMS ORAL TWICE A DAY WITH FOOD Cephalexin 500MG Oral Tablet 03/17/2024 03/19/20 24 ORAL TWICE A DAY 1 TABLET 619807 RxNorm TAKE 1 TABLET ORAL TWICE A DAY x 7 days Acetaminophen 500MG Oral Tablet 03/18/2024 03/18/20 24 ORAL NEEDED EVERY 6 HOURS 2 TABLET 722836 RxNorm TAKE 2 TABLET (OR 3 TABLETS regular strength 325mg) ORAL EVERY 6 HOURS FOR 1-2 DAYS THEN NEEDED FOR Fever/Pain (NEXT DOSES 6AM AND 12 NOON) Ibuprofen 200MG Oral Tablet 03/18/2024 03/18/20 24 ORAL EVERY 6 HOURS 2 TABLET 619595 RxNorm TAKE 2 TABLET ORAL EVERY 6 HOURS FOR 24 HOURS THEN NEEDED. (NEXT DOSES at 4AM AND 10AM) Aspirin 81MG Oral Tablet, Enteric Coated 03/19/2024 Unknown ORAL DAILY 81 MILLIGRAMS 177149 RxNorm TAKE 81 MILLIGRAMS ORAL DAILY Carvedilol 6.25MG Oral Tablet 03/19/2024 Unknown ORAL TWICE A DAY 6.25 MILLIGRAMS 19990607 RxNorm TAKE 6.25 MILLIGRAMS ORAL TWICE A DAY Fish Oil [place]-3 1000 MG Oral Capsule, Liquid Filled 03/19/2024 Unknown ORAL DAILY 1000 MG RxNorm TAKE 10 00 MG ORAL DAILY Gabapentin 600MG Oral Tablet 03/19/2024 Unknown ORAL TWICE A DAY 600 MILLIGRAMS 600439 RxNorm TAKE 600 MILLIGRAMS ORAL TWICE A DAY Lisinopril 10MG Oral Tablet 03/19/2024 Unknown ORAL DAILY 10 MILLIGRAMS 343098 RxNorm TAKE 10 MILLIGRAMS ORAL DAILY Multiple Vitamins Oral Tablet 03/19/2024 Unknown ORAL DAILY 1 unit(s) RxNorm TAKE 1 EACH ORAL DAILY Nitroglycerin 0.4MG Sublingual Tablet 03/19/2024 Unknown SUBLIN GUAL NEEDED 0.4 MILLIGRAMS 896691 RxNorm DISSOLVE 0.4 MILLIGRAMS SUBLINGUAL NEEDED Omeprazole 40MG Oral Capsule, Delayed Release 03/19/2024 Unknown ORAL DAILY 40 MILLIGRAMS 20020517 RxNorm TAKE 40 MILLIGRAMS ORAL DAILY Pramipexole Dihydrochlorid e 0.5MG Oral Tablet 03/19/2024 Unknown ORAL BEDTIME 0.5 MILLIGRAMS 618799 RxNorm TAKE 0.5 MILLIGRAMS ORAL BEDTIME Ventolin HFA 0.09MG/1Actuat ion Inhalation Suspension 03/19/2024 Unknown INHALA TION NEEDED EVERY 4 HOURS 2 unit(s) 928462 RxNorm 2 EACH INHALATION NEEDED EVERY 4 HOURS Victoza 6MG/1ML Subcutaneous Solution 03/19/2024 Unknown SUBCUT ANEOUS 1.8 MILLILITERS 553588 RxNorm INJECT 1.8 MILLILITERS SUBCUTANEOU S Cefdinir [...] Code Code System URINARY TRACT INFECTION active 598088 05 SNOMED-CT HYPOTENSION active 53126895 SNOMED-C T HYPOKALEMIA active 56814812 SNOMED-C T SEPSIS active 14178003 SNOMED-CT CIRRHOSIS - NON-ALCOHOLIC 01/02/2022 resolved 266 432369 SNOMED-CT HTN 08/20/2019 resolved 45746007 SNOMED-CT HIGH CHOLESTEROL 10/01/2023 resolved 08305530 SN OMED-CT PERSONAL HISTORY OF BLADDER CA 08/20/2019 resolved 316261802 SNOMED-CT NON-INSULIN DEPENDENT DIABETES MELLITUS 08/20/2019 resolved 38899140 SNOMED-CT 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 726144510 SNOMED-CT Allergies and Adverse Reactions Allergy Substance Reaction Severity Start Date Concern Status Co de Code System CODEINE Active 2670 RxNorm Plan of Treatment NM MPI STR/RST 05/15/2023 CT CHEST W/O CONTRAST 05/18/2022 CT CHEST W/O CONTRAST 03/26/2022 MRI BRAIN W/O CONTRAST 01/25/2021 Encounters Encounter Diagnosis Start Date Code Code Sys tem Atherosclerosis of artery 10/02/2023 273232142 SN OMED-CT Personal Care Team Section Performer Name Performer Role Active Date Inactive Da lanette
--- OUTSIDE RECORDS SUMMARY | 2024-04-16 15:36 | XMS_ITS ---
Author Organization Unknown Address [address] [place] [address] [phone] Phone Care Team Providers Care [employer] Name Role Phone LIA TENA Registered Nurse UnavailGarret ESCALANTE Registered Nurse Unavailab Griffiths Attending Unavailable KEVIN CURIEL Unavailable ERAN Viera Primary Unavailable UNLISTED PROVIDER - REQUESTED Xhandoff Un available Results NOVA GLUCOSE FINGER HEEL CAP ILLARY - Collect Date/Time: 03/19/2024 08:26 [facility] ID: [id number] [address] [place] [address], [phone] LOINC: 33384-4 Test Value Unit Reference Range Code Code System Flag GLUCOSE CAP 87 mg/dL L=70 H=116 22602-2 LOINC MAGNESIUM SERUM* - Collect D ate/Time: 03/19/2024 07:50 [facility] ID: [id number] [address] [place] [address], [address] LOINC: 38569-9 Test Value Unit Reference Range Code Code System Flag MAGNESIUM 1.2 mg/dL L=1.6 H=2.3 61249-6 LOINC L BASIC METABOLIC PANEL (BMP) - Collect Date/Time: 03/19/2024 07:50 [facility] ID: [id number] - [id number] [address] [place] [address], [address] LOINC: 91889-8 Test Value Unit Reference Range Code Code [...] 2028-9 LOINC L ANION GAP 7.4 mmol/L 90764-5 LOINC CALCIUM SERUM 8.5 mg/dL L=8.4 H=10.2 81155-5 LOINC AGE 83 years eGFR (non-Afr.Amer.) 44 mL/min 48123-5 LOINC eGFR (Afr-Azerbaijani) 53 mL/min 55998-7 LOINC LACTIC ACID - Collect Date/T ellis: 03/19/2024 07:50 [facility] ID: [id number] [address] [place] [address], [address] LOINC: Test Value Unit Reference Range Code Code System Flag LACTIC ACID 1.8 mmol/L L=0.7 H=2.1 33599-8 LOINC CBC W/ DIFFERENTIAL* - Colle ct Date/Time: 03/19/2024 07:50 [facility] ID: [id number] [address] [place] [address], [address] LOINC: 88207-4 Test Value Unit Reference Range Code Code System Flag WBC 12.62 th/cmm L=5.00 H=10.00 6690-2 LOINC H NEUT % 80.0 % L=40.0 H=80.0 LYMPH % 6.3 % L=10.0 H=50.0 L MONO % 12.7 % L=2.0 H=12.0 22895-5 LOINC H EOS % 0.2 % L=0.0 H=8.0 BASO % 0.2 % L=0.0 H=3.0 IG % 0.6 % L=0.0 H=1.1 2514-8 LOINC NRBC % 0.0 % L=0.0 H=0.0 17828-5 LOINC NEUT abs count 10.1 th/cmm L=1.6 H=8.4 751-8 LOINC H LYMPH abs count 0.8 th/cmm L=1.5 H=4.0 731-0 LOINC L MONO abs count 1.6 th/cmm L=0.2 H=1.0 742-7 LOINC H EOS abs count 0.0 th/cmm L=0.0 H=0.5 711-2 LOINC BASO abs count 0.0 th/cmm L=0.0 H=0.2 704-7 LOINC IG abs count 0.1 th/cmm L=0.0 H=0.1 63934-1 LOINC NRBC abs count 0.0 mil/cmm L=0.0 H=0.0 05927-0 LOINC RBC 3.59 mil/cmm L=3.90 H=5.40 789-8 [...] L=150 H=450 777-3 LOINC L Ovalocytes 2+ NOVA GLUCOSE FINGER HEEL CAP ILLARY - Collect Date/Time: 03/18/2024 21:04 [facility] ID: [id number] [address] [place], [place], [id number] LOINC: 32478-9 Test Value Unit Reference Range Code Code System Flag GLUCOSE CAP 135 mg/dL L=70 H=116 31155-2 LOINC H CBC W/ DIFFERENTIAL* - Colle ct Date/Time: 03/18/2024 18:00 [facility] ID: [id number] [address] [place], [place], [phone] LOINC: 33536-8 Test Value Unit Reference Range Code Code System Flag WBC 13.71 th/cmm L=5.00 H=10.00 6690-2 LOINC H NEUT % 82.2 % L=40.0 H=80.0 H LYMPH % 4.0 % L=10.0 H=50.0 L MONO % 13.1 % L=2.0 H=12.0 93340-9 LOINC H EOS % 0.1 % L=0.0 H=8.0 BASO % 0.1 % L=0.0 H=3.0 IG % 0.5 % L=0.0 H=1.1 2514-8 LOINC NRBC % 0.0 % L=0.0 H=0.0 19878-3 LOINC NEUT abs count 11.3 th/cmm L=1.6 H=8.4 751-8 LOINC H LYMPH abs count 0.6 th/cmm L=1.5 H=4.0 731-0 LOINC L MONO abs count 1.8 th/cmm L=0.2 H=1.0 742-7 LOINC H EOS abs count 0.0 th/cmm L=0.0 H=0.5 711-2 LOINC BASO abs count 0.0 th/cmm L=0.0 H=0.2 704-7 LOINC IG abs count 0.1 th/cmm L=0.0 H=0.1 49918-1 LOINC NRBC abs count 0.0 mil/cmm L=0.0 H=0.0 08757-0 LOINC RBC 3.51 mil/cmm L=3.90 H=5.40 789-8 [...] PANEL (BMP) - Collect Date/Time: 03/18/2024 18:00 [facility] ID: [id number] [address] [place] [address], [address] LOINC: 85941-7 Test Value Unit Reference Range Code Code [...] 2028-9 LOINC L ANION GAP 7.1 mmol/L 75722-8 LOINC CALCIUM SERUM 8.0 mg/dL L=8.4 H=10.2 37454-9 LOINC L AGE 83 years eGFR (non-Afr.Amer.) 45 mL/min 61215-8 LOINC eGFR (Afr-Azerbaijani) 55 mL/min 12888-2 LOINC LACTIC ACID - Collect Date/T ellis: 03/18/2024 18:00 [facility] ID: [id number] [address] [place] [address], [address] LOINC: Test Value Unit Reference Range Code Code System Flag LACTIC ACID 2.3 mmol/L L=0.7 H=2.1 89260-9 LOINC H NOVA GLUCOSE FINGER HEEL CAP ILLARY - Collect Date/Time: 03/18/2024 17:19 [facility] ID: [id number] [address] [place] [address], [id number] LOINC: 42141-1 Test Value Unit Reference Range Code Code System Flag GLUCOSE CAP 141 mg/dL L=70 H=116 78325-5 LOINC H NOVA GLUCOSE FINGER HEEL CAP ILLARY - Collect Date/Time: 03/18/2024 11:59 [facility] ID: [id number] [address] [place] [address], [id number] LOINC: 53540-7 Test Value Unit Reference Range Code Code System Flag GLUCOSE CAP 211 mg/dL L=70 H=116 04647-6 LOINC H LACTIC ACID - Collect Date/T ellis: 03/18/2024 08:00 [facility] ID: [id number] [address] [place] [address], [address] LOINC: Test Value Unit Reference Range Code Code System Flag LACTIC ACID 2.2 mmol/L L=0.7 H=2.1 38876-4 LOINC H NOVA GLUCOSE FINGER HEEL CAP ILLARY - Collect Date/Time: 03/18/2024 07:55 [facility] ID: [id number] - [id number] [address] [place] [address], [phone] LOINC: 44902-0 Test Value Unit Reference Range Code Code System Flag GLUCOSE CAP 298 mg/dL L=70 H=116 04831-0 LOINC H NOVA GLUCOSE FINGER HEEL CAP ILLARY - Collect Date/Time: 03/18/2024 02:29 [facility] ID: [id number] [address] [place] [address], [id number] LOINC: 37124-6 Test Value Unit Reference Range Code Code System Flag GLUCOSE CAP 199 mg/dL L=70 H=116 87395-0 LOINC H CBC W/ DIFFERENTIAL* - Colle ct Date/Time: 03/18/2024 02:24 [facility] ID: [id number] [address] [place] [address], [address] LOINC: 10526-8 Test Value Unit Reference Range Code Code System Flag WBC 14.26 th/cmm L=5.00 H=10.00 6690-2 LOINC H NEUT % 83.7 % L=40.0 H=80.0 H LYMPH % 3.7 % L=10.0 H=50.0 L MONO % 11.6 % L=2.0 H=12.0 40101-9 LOINC EOS % 0.1 % L=0.0 H=8.0 BASO % 0.1 % L=0.0 H=3.0 IG % 0.8 % L=0.0 H=1.1 2514-8 LOINC NRBC % 0.0 % L=0.0 H=0.0 59871-7 LOINC NEUT abs count 11.9 th/cmm L=1.6 H=8.4 751-8 LOINC H LYMPH abs count 0.5 th/cmm L=1.5 H=4.0 731-0 LOINC L MONO abs count 1.7 th/cmm L=0.2 H=1.0 742-7 LOINC H EOS abs count 0.0 th/cmm L=0.0 H=0.5 711-2 LOINC BASO abs count 0.0 th/cmm L=0.0 H=0.2 704-7 LOINC IG abs count 0.1 th/cmm L=0.0 H=0.1 91383-9 LOINC NRBC abs count 0.0 mil/cmm L=0.0 H=0.0 39476-2 LOINC RBC 3.60 mil/cmm L=3.90 H=5.40 789-8 LOINC L HEMOGLOBIN 10.9 gm/dL L=12.0 H=16.0 718-7 LOINC L HEMATOCRIT 33 % L=37 H=47 4544-3 LOINC L MCV 91 fL L=82 H=92 787-2 LOINC MCH 30.3 pg L=27.0 H=31.0 785-6 LOINC MCHC 33.2 % L=32.0 H=36.0 786-4 LOINC RDW-SD 46.9 fL L=39.0 H=49.0 788-0 LOINC PLATELET COUNT 82 th/cmm L=150 H=450 777-3 LOINC L LACTIC ACID - Collect Date/T ellis: 03/18/2024 02:24 [facility] ID: [id number] [address] [place], [place], [address] LOINC: Test Value Unit Reference Range Code Code System Flag LACTIC ACID 2.2 mmol/L L=0.7 H=2.1 09516-6 LOINC H BASIC METABOLIC PANEL (BMP) - Collect Date/Time: 03/18/2024 02:24 [facility] ID: [id number] [address] [place] [address], [address] LOINC: 41247-3 Test Value Unit Reference Range Code Code [...] H=30 2028-9 LOINC ANION GAP 5.6 mmol/L 24651-1 LOINC CALCIUM SERUM 8.8 mg/dL L=8.4 H=10.2 67404-5 LOINC AGE 83 years eGFR (non-Afr.Amer.) 52 mL/min 95030-1 LOINC eGFR (Afr-Azerbaijani) 63 mL/min 52176-1 LOINC Social History Type Status Start Date End Date Code Code Syst em Smoking History Never smoker (Never Smoked) 931641939 SNOMED CT Sex Female Vital Signs Vital Sign Value Unit Collin Value Collin Unit Date/Time Recent/Initial? Code Code System Body Mass Index 25.47 kg/m2 03/17/2024 23:59 Initial 21960 -5 LOINC Systolic Blood Pressure 122 mm[Hg] [...] Saturation 94 % 2023 07:39 Most Recent 75753 -5 LOINC O2 Saturation 93 % 2023 23:59 Initial 25317 -5 LOINC Pulse 108.0 /min 03/19/2024 07:39 Most Recent 8867- 4 LOINC Pulse 106.0 /min 03/17/2024 23:59 Initial 8867- 4 LOINC Respiration 18 /min 03/19/20 24 07:39 Most Recent 9279- 1 LOINC Respiration 20 /min 03/17/20 24 23:59 Initial 9279- 1 LOINC Temperature 36.6 Carolann 97.9 F 03/19/20 24 10:39 Most Recent 8310- 5 LOINC Temperature 39.1 Carolann 102.4 F 03/17/20 24 23:59 Initial 8310- 5 LOINC Weight 64.10 kg 141.31 lbs 03/18/2024 11:36 Most Recent 97004 -7 LOINC Weight 62.14 kg 137.00 lbs 03/17/2024 23:59 Initial 41960 -7 LOINC Medications Medication Start Date End Date Route Frequency Dose Code Code System Medication Instructions Home Meds Atorvastatin Calcium 20MG Oral Tablet 08/20/2019 Unknown ORAL BEDTIME 20 MILLIGRAMS 828026 RxNorm TAKE 20 MILLIGRAMS ORAL BEDTIME Gabapentin 800MG Oral Tablet 08/20/2019 03/18/20 24 ORAL TWICE A DAY 1 TABLET 823065 RxNorm TAKE 1 TABLET ORAL TWICE A DAY Lisinopril 20MG Oral Tablet 08/20/2019 03/18/20 24 ORAL DAILY 20 MILLIGRAMS 720870 RxNorm TAKE 20 MILLIGRAMS ORAL DAILY glipiZIDE 10MG Oral Tablet, Extended Release 08/20/2019 Unknown ORAL DAILY 10 MILLIGRAMS 060921 RxNorm TAKE 10 MILLIGRAMS ORAL DAILY metFORMIN HCl 1000MG Oral Tablet 08/20/2019 Unknown ORAL TWICE A DAY WITH FOOD 1000 MILLIGRAMS 846144 RxNorm TAKE 1000 MILLIGRAMS ORAL TWICE A DAY WITH FOOD Cephalexin 500MG Oral Tablet 03/17/2024 03/19/20 24 ORAL TWICE A DAY 1 TABLET 339819 RxNorm TAKE 1 TABLET ORAL TWICE A DAY x 7 days Acetaminophen 500MG Oral Tablet 03/18/2024 03/18/20 24 ORAL NEEDED EVERY 6 HOURS 2 TABLET 015740 RxNorm TAKE 2 TABLET (OR 3 TABLETS regular strength 325mg) ORAL EVERY 6 HOURS FOR 1-2 DAYS THEN NEEDED FOR Fever/Pain (NEXT DOSES 6AM AND 12 NOON) Ibuprofen 200MG Oral Tablet 03/18/2024 03/18/20 24 ORAL EVERY 6 HOURS 2 TABLET 737810 RxNorm TAKE 2 TABLET ORAL EVERY 6 HOURS FOR 24 HOURS THEN NEEDED. (NEXT DOSES at 4AM AND 10AM) Aspirin 81MG Oral Tablet, Enteric Coated 03/19/2024 Unknown ORAL DAILY 81 MILLIGRAMS 313252 RxNorm TAKE 81 MILLIGRAMS ORAL DAILY Carvedilol 6.25MG Oral Tablet 03/19/2024 Unknown ORAL TWICE A DAY 6.25 MILLIGRAMS 008838 RxNorm TAKE 6.25 MILLIGRAMS ORAL TWICE A DAY Fish Oil [place]-3 1000 MG Oral Capsule, Liquid Filled 03/19/2024 Unknown ORAL DAILY 1000 MG RxNorm TAKE 10 00 MG ORAL DAILY Gabapentin 600MG Oral Tablet 03/19/2024 Unknown ORAL TWICE A DAY 600 MILLIGRAMS 692841 RxNorm TAKE 600 MILLIGRAMS ORAL TWICE A DAY Lisinopril 10MG Oral Tablet 03/19/2024 Unknown ORAL DAILY 10 MILLIGRAMS 461112 RxNorm TAKE 10 MILLIGRAMS ORAL DAILY Multiple [...] Tablet 03/19/2024 Unknown ORAL BEDTIME 0.5 MILLIGRAMS 757333 RxNorm TAKE 0.5 MILLIGRAMS ORAL BEDTIME Ventolin HFA 0.09MG/1Actuat ion Inhalation Suspension 03/19/2024 Unknown INHALA TION NEEDED EVERY 4 HOURS 2 unit(s) 727478 RxNorm 2 EACH INHALATION NEEDED EVERY 4 HOURS Victoza 6MG/1ML Subcutaneous Solution 03/19/2024 Unknown SUBCUT ANEOUS 1.8 MILLILITERS 773327 RxNorm INJECT 1.8 MILLILITERS SUBCUTANEOUS Cefdinir 300MG [...] Code Code System URINARY TRACT INFECTION active 247904 05 SNOMED-CT HYPOTENSION active 15777101 SNOMED-C T HYPOKALEMIA active 24465955 SNOMED-C T SEPSIS active 23613073 SNOMED-CT CIRRHOSIS - NON-ALCOHOLIC 01/02/2022 resolved 266 293894 SNOMED-CT HTN 08/20/2019 resolved 45237737 SNOMED-CT HIGH CHOLESTEROL 10/01/2023 resolved 13868591 SN OMED-CT PERSONAL HISTORY OF BLADDER CA 08/20/2019 resolved 877003775 SNOMED-CT NON-INSULIN DEPENDENT DIABETES MELLITUS 08/20/2019 resolved 67390018 SNOMED-CT 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 Encounters Encounter Diagnosis Start Date Code Code Sys tem Urinary tract infection, site not specified 03/18/2024 SNOMED-CT Personal Care Team Section Performer Name Performer Role Active Date Inactive Da te Discharge Summary Notes [facility] 03/19/2024 09:17 Patient Name: NICK MENDIETA [...] TWICE A DAY STARTING 03/20/2024 Fish Oil [place]-3 1000 MG Oral Capsule, Liquid Filled, TAKE [...] Other 03/17/2024 16:10 History and Physical Notes [facility] 03/18/2024 17:08 Patient Name Age Sex [...] Tablet, 10 MILLIGRAMS, ORAL, DAILY Fish Oil [place]-3 1000 MG Oral Capsule, Liquid Filled, 1000 [...]
--- OUTSIDE RECORDS SUMMARY | 2024-04-16 15:36 | XMS_ITS ---
Author Organization Unknown Address [address] [place] [phone] Phone Care Team Providers Care Av Specialist Name Role Phone ANKIT TYLER Registered Nurse Unavailable LUCY Grimaldo Attending Unavailable [facility] Unavailable ERAN Viera Primary Unavailable UNLISTED PROVIDER - REQUESTED Xhandoff Un available Results LACTIC ACID - Collect Date/T ellis: 03/17/2024 16:50 [facility] ID: [id number] - [id number] [address] [place] [address], [address] LOINC: Test Value Unit Reference Range Code Code System Flag LACTIC ACID 1.5 mmol/L L=0.7 H=2.1 24177-7 LOINC COMPREHENSIVE METABOLIC PANE L (CMP) - Collect Date/Time: 03/17/2024 16:32 [facility] ID: [id number] - [id number] [address] [place] [address], [address] LOINC: 07298-7 Test Value Unit Reference Range Code Code [...] H=30 2028-9 LOINC ANION GAP 8.5 mmol/L 71526-5 LOINC CALCIUM SERUM 9.1 mg/dL L=8.4 H=10.2 79132-1 LOINC BILIRUBIN TOTAL 1.0 mg/dL L=0.2 H=1.3 1975-2 LOINC ALK. PHOS. 178 U/L L=38 H=126 6768-6 LOINC H SGOT (AST) 33 U/L L=14 H=36 1920-8 LOINC SGPT (ALT) 33 U/L L=4 H=35 1742-6 LOINC TOTAL PROTEIN 6.8 gm/dL L=6.0 H=8.0 2885-2 LOINC ALBUMIN 3.8 gm/dL L=3.4 H=5.0 1751-7 LOINC AGE 83 years eGFR (non-Afr.Amer.) 76 mL/min 54298-1 LOINC eGFR (Afr-Albanian) 92 mL/min 85300-3 LOINC CBC W/ DIFFERENTIAL* - Colle ct Date/Time: 03/17/2024 16:32 [facility] ID: [id number] [address] [place], [place], [address] LOINC: 22230-9 Test Value Unit Reference Range Code Code System Flag WBC 10.72 th/cmm L=5.00 H=10.00 6690-2 LOINC H NEUT % 79.2 % L=40.0 H=80.0 LYMPH % 5.7 % L=10.0 H=50.0 L MONO % 14.2 % L=2.0 H=12.0 98291-4 LOINC H EOS % 0.1 % L=0.0 H=8.0 BASO % 0.1 % L=0.0 H=3.0 IG % 0.7 % L=0.0 H=1.1 2514-8 LOINC NRBC % 0.0 % L=0.0 H=0.0 72593-6 LOINC NEUT abs count 8.5 th/cmm L=1.6 H=8.4 751-8 LOINC H LYMPH abs count 0.6 th/cmm L=1.5 H=4.0 731-0 LOINC L MONO abs count 1.5 th/cmm L=0.2 H=1.0 742-7 LOINC H EOS abs count 0.0 th/cmm L=0.0 H=0.5 711-2 LOINC BASO abs count 0.0 th/cmm L=0.0 H=0.2 704-7 LOINC IG abs count 0.1 th/cmm L=0.0 H=0.1 56122-3 LOINC NRBC abs count 0.0 mil/cmm L=0.0 H=0.0 16766-6 LOINC RBC 3.86 mil/cmm L=3.90 H=5.40 789-8 [...] [place]PT[place]) - Collect Date/Time: 03/17/2024 16:32 [facility] ID: [id number] - [id number] [address] [place] [address], [address] LOINC: 19151-8 Test Value Unit Reference Range Code Code System Flag NT-proBNP 916.0 pg/mL L=0.0 H=450 87734-5 LOINC H TROPONIN-I* - Collect Date/T ellis: 03/17/2024 16:32 [facility] ID: [id number] [address] [place] [address], [address] LOINC: 28546-2 Test Value Unit Reference Range Code Code System Flag TROPONIN-I < 0.012 ng/mL L=0.000 H=0.034 01324-0 LOINC Specimen seq. RANDOM URINALYSIS WITH MICROSCOPIC* - Collect Date/Time: 03/17/2024 16:10 [facility] ID: [id number] - [id number] [address] [place], [place], [address] LOINC: 45619-3 Test Value Unit Reference Range Code Code System Flag COLLECTION MODE: CLEAN CATCH 89643-0 LOINC Color YELLOW yellow 5778-6 LOINC Appearance CLOUDY clear 5767-9 LOINC Glucose urine NEGATIVE negative mg/dl 99713-9 LOINC Bilirubin NEGATIVE negative 5770-3 LOINC Ketones NEGATIVE negative mg/dl 2514-8 LOINC Spec gravity 1.020 1.003 - 1.030 5811-5 LOINC pH urine 5.5 5.0 - 7.0 2756-5 LOINC Protein 100 negative mg/dl 24739-7 LOINC A Urobilinogen 0.2 <or= 1 EU/dl 90717-7 LOINC Nitrite POSITIVE negative 5802-4 LOINC A Blood LARGE negative 5794-3 LOINC A Leukocytes MODERATE negative 74681-2 LOINC A WBCs 25-100 0-5 / hpf 65702-7 LOINC RBCs 10-25 0-5 / hpf 85295-1 LOINC Epith cells none 0-5 / hpf Crystals none none Bacteria large none Mucus none none Casts none none /lpf Other [facility] COVID FLU RSV GENEXPE RT - Collect Date/Time: 03/17/2024 16:10 [facility] ID: [id number] [address] [place] [address], [id number] LOINC: 99624-2 Test Value Unit Reference Range Code Code System Flag COVID NEGATIVE Normal: Negative 31681-7 LOINC INFLUENZA A DNA NEGATIVE Normal: Negative 70840-9 LOINC INFLUENZA B DNA NEGATIVE Normal: Negative 15754-3 LOINC RSV DNA NEGATIVE Normal: Negative 02986-9 LOINC XR CHEST 2V PA AND LATERAL - Completed: 03/17/2024 16:20 LOINC: [facility] RADIOLOGY [place], [place] [address] RADIOLOGY [place] OPERATOR REPORT Patient Name: NICK MENDIETA MRN: Sex: : Age: [id number] F 1940 83 Account: Accession: Admit: StayType: [id number] 03/17/2024 E Ordered: Order ID: Submitted: Ordering Provider: 03/17/2024 16:03 [id number] NGOZI MOSLEY Completed: Technologist: Resulted: 03/17/2024 16:09 [...] who have questions please contact the health hearing care practitioner that requested your imaging first. Social History Type Status Start Date End Date Code Code Syst em Smoking History Never smoker (Never Smoked) 243415301 SNOMED CT Sex Female Vital Signs Vital Sign Value Unit [place] Value [place] Unit Date/Time Recent/Initial? Code Code System Body Mass Index 25.70 kg/m2 03/17/2024 15:07 Initial 77834 -5 LOINC Systolic Blood Pressure 99 mm[Hg] [...] Saturation 98 % 2023 17:42 Most Recent 03962 -5 INC O2 Saturation 98 % 2023 15:07 Initial 20532 -5 LOINC Pulse 102.0 /min 03/17/2024 17:42 [...] 61.69 kg 136.00 lbs 03/17/2024 15:07 Initial 25755 -7 [facility] Medications Medication Start Date End Date Route Frequency Dose Code Code System Medication Instructions Home Meds Atorvastatin Calcium 20MG Oral Tablet 08/20/2019 Unknown ORAL BEDTIME 20 MILLIGRAMS 572770 RxNorm TAKE 20 MILLIGRAMS ORAL BEDTIME Fish Oil 1000MG Oral Capsule, Liquid Filled 08/20/2019 03/18/20 24 ORAL DAILY 3 CAPSULE 562671 RxNorm TAKE 3 CAPSULE ORAL DAILY Gabapentin 800MG Oral Tablet 08/20/2019 03/18/20 24 ORAL TWICE A DAY 1 TABLET 188752 RxNorm TAKE 1 TABLET ORAL TWICE A DAY Lisinopril 20MG Oral Tablet 08/20/2019 03/18/20 24 ORAL DAILY 20 MILLIGRAMS 204666 RxNorm TAKE 20 MILLIGRAMS ORAL DAILY Multiple Vitamin Formula Oral Tablet 08/20/2019 03/18/20 24 ORAL DAILY 1 unit(s) 0115761 RxNorm TAKE 1 EACH ORAL DAILY glipiZIDE 10MG Oral Tablet, Extended Release 08/20/2019 Unknown ORAL DAILY 10 MILLIGRAMS 071015 RxNorm TAKE 10 MILLIGRAMS ORAL DAILY metFORMIN HCl 1000MG Oral Tablet 08/20/2019 Unknown ORAL TWICE A DAY WITH FOOD 1000 MILLIGRAMS 299828 RxNorm TAKE 1000 MILLIGRAMS ORAL TWICE A DAY WITH FOOD Cephalexin 500MG Oral Tablet 03/17/2024 03/19/20 24 ORAL TWICE A DAY 1 TABLET 002061 RxNorm TAKE 1 TABLET ORAL TWICE A DAY x 7 days Acetaminophen 500MG Oral Tablet 03/18/2024 03/18/20 24 ORAL NEEDED EVERY 6 HOURS 2 TABLET 778171 RxNorm TAKE 2 TABLET (OR 3 TABLETS regular strength 325mg) ORAL EVERY 6 HOURS FOR 1-2 DAYS THEN NEEDED FOR Fever/Pain (NEXT DOSES 6AM AND 12 NOON) Ibuprofen 200MG Oral Tablet 03/18/2024 03/18/20 24 ORAL EVERY 6 HOURS 2 TABLET 412048 RxNorm TAKE 2 TABLET ORAL EVERY 6 HOURS FOR 24 HOURS THEN NEEDED. (NEXT DOSES at 4AM AND 10AM) Aspirin 81MG Oral Tablet, Enteric Coated 03/19/2024 Unknown ORAL DAILY 81 MILLIGRAMS 566193 RxNorm TAKE 81 MILLIGRAMS ORAL DAILY Carvedilol 6.25MG Oral Tablet 03/19/2024 Unknown ORAL TWICE A DAY 6.25 MILLIGRAMS 866199 RxNorm TAKE 6.25 MILLIGRAMS ORAL TWICE A DAY Fish Oil [place]-3 1000 MG Oral Capsule, Liquid Filled 03/19/2024 Unknown ORAL DAILY 1000 MG RxNorm TAKE 10 00 MG ORAL DAILY Gabapentin 600MG Oral Tablet 03/19/2024 Unknown ORAL TWICE A DAY 600 MILLIGRAMS 616627 RxNorm TAKE 600 MILLIGRAMS ORAL TWICE A DAY Lisinopril 10MG Oral Tablet 03/19/2024 Unknown ORAL DAILY 10 MILLIGRAMS 262922 RxNorm TAKE 10 MILLIGRAMS ORAL DAILY Multiple [...] Tablet 03/19/2024 Unknown ORAL BEDTIME 0.5 MILLIGRAMS 045955 RxNorm TAKE 0.5 MILLIGRAMS ORAL BEDTIME Ventolin HFA 0.09MG/1Actuat ion Inhalation Suspension 03/19/2024 Unknown INHALA TION NEEDED EVERY 4 HOURS 2 unit(s) 227031 RxNorm 2 EACH INHALATION NEEDED EVERY 4 HOURS Victoza 6MG/1ML Subcutaneous Solution 03/19/2024 Unknown SUBCUT ANEOUS 1.8 MILLILITERS 010933 RxNorm INJECT 1.8 MILLILITERS SUBCUTANEOU S Cefdinir [...] Code Code System URINARY TRACT INFECTION active 837918 05 SNOMED-CT HYPOTENSION active 87977488 SNOMED-C T HYPOKALEMIA active 65962467 SNOMED-C T SEPSIS active 84214345 SNOMED-CT CIRRHOSIS - NON-ALCOHOLIC 01/02/2022 resolved 266 972275 SNOMED-CT HTN 08/20/2019 resolved 04938420 SNOMED-CT HIGH CHOLESTEROL 10/01/2023 resolved 39837794 SN OMED-CT PERSONAL HISTORY OF BLADDER CA 08/20/2019 resolved 007775729 SNOMED-CT NON-INSULIN DEPENDENT DIABETES MELLITUS 08/20/2019 resolved 87111096 SNOMED-CT 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 139861386 SNOMED-CT Allergies and Adverse Reactions Allergy Substance Reaction Severity Start Date Concern Status Co de Code System CODEINE Active 2670 RxNorm Plan of Treatment NM MPI STR/RST 05/15/2023 CT CHEST W/O CONTRAST 05/18/2022 CT CHEST W/O CONTRAST 03/26/2022 MRI BRAIN W/O CONTRAST 01/25/2021 Encounters Encounter Diagnosis Start Date Code Code Sys tem Urinary tract infectious disease 03/17/2024 49252712 SNOMED-CT Personal Care Team Section Performer Name Performer Role Active Date Inactive Da te Imaging Narrative Notes [facility] [place], [place] [address] RADIOLOGY [place] OPERATOR REPORT Patient Name: NICK MENDIETA MRN: Sex: : Age: [id number] F 1940 83 Account: Accession: Admit: StayType: [id number] 03/17/2024 E Ordered: Order ID: Submitted: Ordering Provider: 03/17/2024 16:03 [id number] NGOZI MOSLEY Completed: Technologist: Resulted: 03/17/2024 16:09 [...]
--- OUTSIDE RECORDS SUMMARY | 2024-04-16 15:37 | XMS_ITS | Continuity of Care Document ---
Author Organization [place] - [facility], [facility] Address [address] [place] [address] Care Team Providers Care Roller Leveler Name Role Phone CRYSTAL MCCORMACK Certified Scrum Master LANI WALLIS Photographer Apprentice Lithographic Assessment Encounter Date Assessment Date Assessment LastModified by Organization Details LastModified Time 03/27/2024 03/27/2024 Chronic Diarrhea - Assessment: Patient reports 3-4 months of loose stools, varying from liquidy to soft Play-Archana consistency, unresponsive to Imodium. Symptoms persisted during a period when Victoza was unavailable. Current medications include omeprazole 40 mg BID, Victoza 1.2 mg daily, and metformin. Stool sample provided was deemed too formed for C. diff testing. Given the duration, an infectious etiology is less likely. Medication side effect is a primary consideration. - Plan: a. Discontinue metformin for 2 weeks to evaluate its potential role in diarrhea. b. Patient to call in 2 weeks to report any improvement. c. If stools become consistently unformed, patient to provide liquid stool sample for further testing. d. Continue Imodium as needed. e. Educate patient that diarrhea is not typically associated with cancer. Recent UTI with Hypokalemia - Assessment: Patient was recently hospitalized for UTI and mild hypokalemia. She experienced burning urination and shaking, which was attributed to fever. Follow-up labs show normalization of potassium and kidney function. - Plan: a. Continue to monitor for recurrence of UTI symptoms. b. No further immediate interventions required given resolved lab abnormalities. Diabetes Mellitus - Assessment: Patient is on Victoza 1.2 mg daily for diabetes management. Glipizide was previously discontinued. - Plan: a. Continue Victoza 1.2 mg daily. b. Reassess diabetes management after metformin holiday. Subjective Memory Concerns - Assessment: Patient reports losing words and expresses concern about memory decline. - Plan: a. Educate patient on normal age-related memory changes. b. Recommend patient jot down notes before visits to aid recall. [email or web address] Not available 03/27/2024 14:29:14 Plan of Treatment Reminders Order Date Submit Date Provider Last Modified By Organization Details Last Modified Time Details Appointments Follow Up 2024 01:20P Dillan BARILLAS Not available Not available Not available Lab None recorded. Referral None recorded. Procedures None recorded. Surgeries None recorded. Imaging None recorded. Medication Orders carvedilo l 6.25 mg tablet 2023 mycir[facility]le [facility], [facility] [address], [facility] [address], [place], [id number], 03/27/2024 15:31:06 metformin 1,000 mg tablet 2023 [facility]cir[employer]le [facility], [facility] [address], [address], [place], [place], [id number], 03/27/2024 15:31:06 albuterol sulfate HFA 90 mcg/actua tion aerosol inhaler 2023 [employer] [address], [place], [address], 03/27/2024 15:31:08 Patient TargetsNo targets recorded. Patient Instructions Encounter Date Encounter Id Patient Instructions Last Modified By Organization Details Last Modified Time 03/27/2024 [id number] Dear Milka, Thank you for visiting us today. We appreciate your commitment to improving your health and are here to support you every step of the way. Here is a summary of the palomo instructions and recommendations from your visit: - Diagnostic Tests: - Stool Sample: We will send off the stool sample you provided for culture to assess the consistency and rule out infections. - Medication Adjustments: - Stop Glipizide as previously discussed. Continue Victoza 1.2 mg daily. - Pause Metformin for 2 weeks to see if there is any improvement in your diarrhea. - Continue monitoring the effects of Imodium; adjust usage as needed for symptom control. - Follow-Up Care: - Please call us in 2 weeks to update us on your condition, especially regarding the diarrhea. - If stools are consistently unformed, bring in another sample for testing. - I may refer you to a produce laborer if we can't figure out the cause of your loose stools. - General Health Update: - Your recent blood work showed normal kidney function and potassium levels. - No signs of urinary infection or serious complications like cancer based on your symptoms and test results. Remember, jotting down any concerns or symptoms before your visit can be very helpful. We look forward to hearing from you in two weeks to assess your progress. Warm regards, Rupal Barillas MD Family Medicine [email or web address] Not available 03/27/2024 14:31:20 Reason for Referral None Reported. Results Created Date Observation Date Name Description Value Unit Range Abnormal Flag Note LastModifiedBy Organization Detail LastModifiedTime 03/17/20 24 03/17/2024 xr chest 2V Pa and later al [facility] RADIOL OGY [place] [id number] RADIOL OGY TRANSC RIPTIO N REPORT _ Patien t Name: CRISTEL SEGUNDO MRN: Sex: : Age: [id number] F [id number] Accoun t: Access ion: Admit: StayTy pe: [id number] 2023 Aylin Castellon d: Order ID: Submit nate: David Klein er: 2023 16:03 [id number] Zoey MOSLEY nate: Techno logist : Result [...] ce of pneumo shirlene. Thank you for lettmarium g us partic ipate in the care of this patien t. If you are a health care [facility] er and have any questi ons regard ing this report , please contac t the number below. For patien ts who have questi ons please contac t the health care profes sional that reques nate your imagin g first. Electr onical ly signed by: Kimberly Keith MD Radiol sohan ji ([phone]), at 2023 4:28 PM INTERFACE [facility] (Lab) [address] [place] [address], [address], 03/17/2024 16:35:27 03/17/20 24 03/17/2024 EKG order yony ng 12 lead [facility] [place] hermosillo [id number] EKG TRANSC RIPROYCE Ji REPORT _ Accoun t: Access ion: Admit: StayTy pe: [id number] 210 2023 E/R Observ ation: Order ID: Submit nate: David Klein er: 2023 16:34 [id number] KIN BOYLE _ [place] [id number] [facility] Test Date: 2023-04 Pat Name: CRISTELVICTORIA Khan Depart ment: Brice bermudez ID: [id number] Room: Gender : F Techni perri: jr : 1941-0 06-22 Reques ante By: FRANC Yanes Order Number : [id number] Kelby mcdaniels MD: Jung Corona Measur ements Interv als [place] Rate: 109 P: 57 OH: 182 QRS: -22 QRSD: 92 T: 0 QT: 328 QTc: 441 Interp retive Statem ents Sinus tachyc ardia Poor R wave progre ssion, likely due to lead placem ent Compar ed to ECG 2023 09:24: 01 Sinus rhythm no longer presen t Electr onical ly Signed On 2023 19:33: 53 EST by Jung Corona INTERFACE [facility] (Lab) [address] [place] [address], [address], 03/17/2024 19:35:41 Result Notes None recorded. Problems Name Problem SNOMED Code Status Onset Date Resolution Date Notes Provider Name and Address Organization Details Recorded Time Acute lower respirat ory tract infectio n 935958191 Completed 202303/27/[address], [place], [address] , [facility]. 14:21:53 Acute confusio n 927134447 Completed 202303/27/[address], [address] 4 14:21:53 Mild intermit tent asthma 035057023 Active [address], [address] 4 15:28:45 Chronic cough 21571486 Active [address], [address] 5 14:11:35 Dysuria 72035972 Active 2024 Problem Code: R30.0; Problem Code Type: ICD-10; MD Livan RODRIGUEZ Dr, [address] 5 14:40:58 Dry lips 003837788 Active [address], [address] 5 15:15:20 Loose stool 477895753 Active [address], [address] 5 15:16:13 Encopres is 212370878 Active [address], [address] 5 15:16:22 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 205942674 Active [address], [address] 5 15:16:36 [facility]entia l hyperten eugene 21310996 Completed 201305/13/2023 Problem Code: I10; Problem Code Type: ICD-10; MD Livan [address], [place], [address] , [facility] 4 13:45:04 Migraine 81507593 Active 2013 Gail Fregosogrady rodriguez, [facility] 4 12:45:27 History of disorder of digestiv e system 646556444 Completed 201305/13/2023 Problem Code: Z87.19; Problem Code Type: ICD-10; MD Livan [address], [place], [address] , [facility] 4 13:45:04 Restless legs 39151111 Active 2013 Gail Lavern null, [facility] 12:48:18 Disorder of nervous system due to type 2 diabetes mellitus 261946732 Completed 201305/13/2023 04/27/19 20 - Comments only [...] Code: E11.49; Problem Code Type: ICD-10; MD Lvian [address], [place], [address] , [facility] 4 13:45:04 Allergic rhinitis 37877992 Completed 201305/13/2023 Problem Code: J30.9; Problem Code Type: ICD-10; MD Livan [address], [place], [address] , [facility] 4 13:45:04 Mixed hyperlip idemia 346561256 Active 2013 Gail Puckett [facility] 4 12:45:48 Neuropat hy due to type 2 diabetes mellitus 83328595247 9106 Active 2013 [facility] 4 12:46:16 Intolera nce to lactose 593836193 Completed 201305/13/2023 Problem Code: E73.9; Problem Code Type: ICD-10; MD Livan [address], [place], [address] , [facility] 4 13:45:04 Heart murmur 15166675 Active [address], [place], [address] , [facility] 4 06:52:52 History of malignan t neoplasm of bladder 681786409 Active 2013, recurren ce 2008, Dr. Boykin, chemo instilla tion, straight caths [facility] 4 12:43:10 History of nutritio nal disorder 888192066 Completed 201405/13/[address], [place], [address] , [facility] 4 13:45:04 Irritabl e bowel syndrome 20404725 [facility] 4 12:45:06 Eczema 89536771 Active 2014 [facility] 4 12:38:10 Hernia of abdomina l cavity 93522482 Active 2015 [facility] 4 12:41:15 Cirrhosi s of liver 35199348 Completed 201505/13/2023 09/22/19 20 - Comments only - Nat Bryant M.D. - Has gained some weight, and possibly has ascites, although I have never examined her before. Follow-u p as planned tomorrow for imaging, labs, and speciali [facility] ent at [facility]. Problem Code: K74.69; Problem Code Type: ICD-10; MD Livan [address], [place], [address] , [facility] 4 13:45:04 History of urinary tract infectio n 86975660164 07 Completed 201505/13/2023 08/03/19 16 - Comments only - Raimundo Subha - No signs of pyelo (fever, flank [...] Code Type: ICD-10; MD Livan [address], [place], [address] , [facility] 4 13:45:04 Screenin g for malignan t neoplasm of breast Completed 201505/13/2023 Problem Code: Z12.39; Problem Code Type: ICD-10; MD Livan [address], [place], [address] , [facility] 4 13:45:04 Candidia sis of vagina 39224776 Completed 201505/13/2023 Problem Code: B37.3; Problem Code Type: ICD-10; MD Livan [address], [place], [address] , [facility] 02/05/202 4 13:45:04 Portal hyperten eugene 41800192 Active 2015 no ascites or encephal opathy, EGD 2016 (gastric ulcer) [facility] 4 12:47:45 Genitour inary symptoms 175893825 Completed 201504/17/2016 Problem Code: R39.89; Problem Code Type: ICD-10; Not Available [facility] 3 04:10:10 Screenin g for malignan t neoplasm of colon Completed 201605/13/2023 Problem Code: Z12.11; Problem Code Type: ICD-10; MD Livan [address], [place], [address] , [facility] 4 13:45:04 Pneumoni a 770673101 Completed 201602/15/2017 02/12/20 17 - Improved - 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 TUCK POINTER - s/p tx with azithrom ycin pt signific antly improved RTC if sx worsen/p ersist Problem Code: J18.9; Problem Code Type: ICD-10; MD Livan R[address] Dr, [facility] [address] , [facility] 4 14:21:53 Orthosta tic hypotens ion 41909772 Active 2017 [facility] 4 12:46:41 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 4 12:39:42 Hepatic failure 44515995 Completed 201805/13/2023 Problem Code: K72.90; Problem Code Type: ICD-10; MD Livan [address], [place], [address] , [facility] 4 13:45:04 Acute upper respirat ory infectio n 70291876 Completed 201811/08/2018 Problem Code: J06.9; Problem Code Type: ICD-10; MD Livan [address], [place], [address] , [facility] 4 13:45:04 Proteinu vinod 09095843 Completed 201805/13/2023 Problem Code: R80.9; Problem Code Type: ICD-10; MD Livan R[address] Dr, [facility] [address] , [facility] 4 13:45:04 Hyperlip idemia 60208387 Active 2018 [facility] 4 12:44:49 Gastroes ophageal reflux disease without esophagi tis 298253598 Active 2019 [facility] 4 12:39:54 Urinary tract infectio us disease 82966951 Completed 201909/29/2019 09/22/19 20 - Comments only [...] N39.0; Problem Code Type: ICD-10; Not Available [facility] 3 04:10:12 Nervous system and sense organ diseases 871667047 Completed 202005/13/[address], [place], [address] , [facility] 4 13:45:04 Fall on or from stairs or steps Completed 202005/27/2020 Problem Code: W10.9xxA ; Problem Code Type: ICD-10; Not Available [facility] 3 04:10:12 Knee joint effusion 137938428 Completed 202006/06/2020 Problem Code: M25.469; Problem Code Type: ICD-10; Not Available [facility] 3 04:10:13 Low back pain 474196861 Completed 202006/20/2020 Problem Code: M54.5; Problem Code Type: ICD-10; INDIRA YEN [address], [address] 4 14:31:55 Dysuria 48973999 Completed 202009/03/2020 Problem Code: R30.0; Problem Code Type: ICD-10; MD Livan RODRIGUEZ Dr, [address] 5 14:40:58 Psychoph ysiologi c insomnia 340631476 Active 2020 Insomnia , chronic [facility] 4 12:48:07 Dizzines s and giddines s 761970208 Completed 202010/31/2020 Problem Code: R42; Problem Code Type: ICD-10; Not Available [facility] 3 04:10:14 Atrophic vaginiti s 58892095 Active 2020 [facility] 4 12:37:19 Urinary tract infectio us disease 28490750 Completed 202003/03/2021 Problem Code: N39.0; Problem Code Type: ICD-10; Not Available [facility] 3 04:10:14 Disorder of hematopo ietic structur e 054132250 Completed 202105/13/2023 Problem Code: D75.89; Problem Code Type: ICD-10; MD Livan RODRIGUEZ Dr, [address] 4 13:45:04 Tension- type headache 245508518 Completed 202105/13/2023 Problem Code: G44.209; Problem Code Type: ICD-10; MD Livan [address], [place], [address] , [facility] 4 13:45:04 Acute conjunct ivitis of left eye 55504403832 9105 Completed 202112/19/2021 12/13/19 22 - Comments only - Nat Bryant M.D. - Likely bacteria l. Rx sent for e-mycin ointment . Call for reevalua tion if worsenin g, or no better w/in 48 hours. Problem Code: H10.32; Problem Code Type: ICD-10; Not Available [facility] 3 04:10:15 Cerebrov ascular disease 50807834 Active 2021 [facility] 4 12:37:49 Urinary tract infectio us disease 89704364 Completed 202208/28/2022 Problem Code: N39.0; Problem Code Type: ICD-10; Not Available [facility] 3 04:10:15 Pneumoni a 487077215 Completed 202211/08/2022 10/30/19 23 - Improved - [...] Code Type: ICD-10; MD Livan [address], [place], [address] , [facility] 4 14:21:53 Edema 418686510 Active 2022 Peripher al edema [facility] 4 12:38:42 Castillo' s esophagu s 041338321 Active 2022 Gail rodriguez, [facility] 4 12:37:33 Candidia sis of skin 21749174 Completed 201810/23/2022 Problem Code: B37.2; Problem Code Type: ICD-10; Not Available [facility] 3 04:10:16 Acute atopic conjunct ivitis 29729391 Completed 201804/21/2019 Problem Code: H10.10; Problem Code Type: ICD-10; Not Available [facility] 3 04:10:16 Constipa tion 41941304 Completed 201301/02/2023 Problem Code: K59.00; Problem Code Type: ICD-10; Not Available [facility] 3 04:10:16 Cough 42322980 Completed 202201/02/2023 Problem Code: R05.8; Problem Code Type: ICD-10; RUPAL BARILLAS MD [address], [place], [address] [facility] 4 14:21:53 Hyperten sive disorder 70202877 Completed 201301/02/2023 Not Available [facility] 3 04:10:17 Neoplasm of urinary bladder 445650059 Completed 201301/02/2023 Problem Code: D49.4; Problem Code Type: ICD-10; Not Available [facility] 3 04:10:17 Enthesop athy 24599763 Completed 201812/26/2020 Problem Code: M77.9; Problem Code Type: ICD-10; Not Available [facility] 3 04:10:17 Hypercal cemia 02084956 Completed 201401/02/2023 Not Available [facility] 3 04:10:18 Lung field abnormal 758527013 Completed 201607/29/2017 Problem Code: R91.8; Problem Code Type: ICD-10; Not Available [facility] 3 04:10:18 Insomnia 948298829 Completed 201906/06/2021 Problem Code: F51.09; Problem Code Type: ICD-10; Not Available [facility] 3 04:10:18 Disorder of lung 45640668 Completed 201710/23/2022 Problem Code: J98.4; Problem Code Type: ICD-10; Not Available [facility] 3 04:10:18 Type 2 diabetes mellitus without complica tion 193640745 Completed 201301/02/2023 Problem Code: E11.9; Problem Code Type: ICD-10; INDIRA WATSON [address], [place], [address] , [facility] 4 15:17:00 Pain of left shoulder joint 00259828209 081074 Completed 201406/06/2021 Problem Code: M25.512; Problem Code Type: ICD-10; Not Available [facility] 3 04:10:19 Screenin g for osteopor osis Completed 201602/11/2017 Problem Code: Z13.820; Problem Code Type: ICD-10; Not Available [facility] 3 04:10:19 Inflamed seborrhe ic keratosi s 535744145 Completed 201910/23/2022 Problem Code: L82.0; Problem Code Type: ICD-10; Not Available [facility] 3 04:10:20 Disorder of brain 03222808 Completed 202103/05/2022 Problem Code: G93.40; Problem Code Type: ICD-10; Not Available [facility] 3 04:10:20 Other idiopath ic peripher al neuropat hy NOS Completed 201301/02/2023 Not Available [facility] 3 04:10:20 Obesity 789442255 Completed 201301/02/2023 Not Available [facility] 3 04:10:20 Fatigue 21295513 Completed 201810/27/2018 Problem Code: R53.83; Problem Code Type: ICD-10; Not Available [facility] 3 04:10:21 Genitour inary symptoms 553424480 Completed 201904/04/2020 Problem Code: R39.9; Problem Code Type: ICD-10; Not Available [facility] 3 04:10:21 Benign paroxysm al position al vertigo 772296258 Completed 202001/02/2023 Problem Code: H81.10; Problem Code Type: ICD-10; Not Available [facility] 3 04:10:22 Disorder of skin and/or subcutan eous tissue 26314770 Completed 201904/04/2020 Problem Code: L98.9; Problem Code Type: ICD-10; Not Available [facility] 3 04:10:22 Osteophy te of bone 60169098267 9100 Completed 201906/28/2020 Problem Code: M25.776; Problem Code Type: ICD-10; Not Available [facility] 3 04:10:22 Gastric ulcer 994964360 Completed 201501/02/2023 Problem Code: K25.9; Problem Code Type: ICD-10; Not Available [facility] 3 04:10:22 Right side sciatica 39784031824 9101 Completed 201804/21/2019 Problem Code: M54.31; Problem Code Type: ICD-10; Not Available [facility] 3 04:10:23 Candidia sis 03631793 Completed 201308/22/2015 Problem Code: B37.9; Problem Code Type: ICD-10; Not Available [facility] 3 04:10:23 Steatosi s of liver 525116318 Completed 201302/10/2016 Problem Code: K76.0; Problem Code Type: ICD-10; Not Available [facility] 3 04:10:23 Cough 71201037 Completed 201912/26/2020 Problem Code: R05; Problem Code Type: ICD-10; RUPAL BARILLAS MD [address], [place], [address] , [facility]. 4 14:21:53 Xerostom ia 06620613 Completed 202006/06/2021 Problem Code: R68.2; Problem Code Type: ICD-10; Gail rodriguez, [facility] 4 12:49:03 Candidal vulvovag initis 01915764 Completed 201301/02/2023 Problem Code: 112.1; Problem Code Type: ICD-9; Not Available [facility] 3 04:10:25 Intestin al disaccha ridase deficien cy 41903185 Completed 201301/02/2023 Problem Code: 271.3; Problem Code Type: ICD-9; Not Available [facility] 3 04:10:25 Acute bronchit is 10582196 Completed 201912/26/2020 Problem Code: J20.9; Problem Code Type: ICD-10; Not Available [facility] 3 04:10:26 Peripher al nerve disease 798985545 Completed 201301/02/2023 Not Available [facility] 3 04:10:26 Acute upper respirat ory infectio n 91076407 Completed 202205/13/2023 Problem Code: J06.9; Problem Code Type: ICD-10; MD Livan R[address] Dr, [facility] [address] , [facility] 4 13:45:04 Diastoli c heart failure 092152981 Active 2022 echo 03/[address], [facility] [address] , [facility] 3 11:17:46 Chest pain 99722469 Completed 202205/13/2023 Problem Code: R07.89; Problem Code Type: ICD-10; MD Livan [address], [facility] [address] , [facility] 4 13:45:03 Aortic stenosis , non-rheu matic 787197477 Active 2022 mild 03/2023 echo MD Livan [address], [address] 06:52:21 Senile hyperker atosis 786385129 Completed 202205/13/2023 Problem Code: L82.1; Problem Code Type: ICD-10; MD Livan RODRIGUE[address] Dr, [address] 13:45:03 Melanocy tic nevus 886877579 Completed 202205/13/2023 Problem Code: D22.9; Problem Code Type: ICD-10; MD Livan RODRIGUE[address] Dr, [address] 13:45:04 Incoordi [facility] 457099805 Completed 202205/13/2023 01/31/20 23 - Comments only - Rupal Barillas MD - neuro exam not c/w CVA; will eval further at next visit. Problem Code: R27.9; Problem Code Type: ICD-10; MD Livan R[address] Dr, [address] 13:45:03 Dyspnea 372603324 Completed 202205/13/2023 Problem Code: R06.09; Problem Code Type: ICD-10; MD Livan R[address] Dr, [address] 4 13:45:03 Chronic diarrhea 889486779 Active 2023 Gail rodriguez, [facility] 12:37:57 Drug-ind uced xerostom ia 549693268 Active [address], [address] 4 13:38:38 Microalb uminuric diabetic nephropa thy 936662856 Active 2023 [facility] 4 12:45:11 Dyspnea on exertion 62203134 Active 2023 [facility] 4 12:37:57 Angular cheiliti s 634894976 Active 2023 [facility] 4 12:36:56 Xerostom ia 68626690 Active 2023 [facility] 4 12:49:03 History of adenomat ous polyp of colon 647539611 Active 2020 [facility] 12:43:44 Sialoade nitis 22285675 Completed 202308/09/[address], [place], [address] , [facility] 4 16:48:36 Low back pain 650711898 Active 2023 Problem Code: M54.5; Problem Code Type: ICD-10; AMADEOCORTNEY GLEASON, COMMUNICATIONS CONTROLLER [address], [place], [address] , [facility] 4 14:31:55 Chest pain on exertion 13671584 Active [address], [place], [address] , [facility] 4 12:24:41 Always hungry 381285292 Active [address], [place], [address] , [facility] 4 16:38:32 Altered bowel function 93719080 Active [address], [address] 4 16:38:44 Atypical chest pain 169736869 Active 2023 DORIS JONES MA [facility], [facility] 4 07:31:04 Acquired thromboc ytopenia 12271596 Active [address], [address] 4 09:56:08 Actinic keratosi s 060159067 Active [address], [address] 4 13:34:57 Nodule of lung 387550300 Active 2023 probable lipoma by PET. (benign) MD Livan RODRIGUEZ Dr, [address] 4 06:49:28 Minimal cognitiv e impairme nt 561309782 Active [address], [address] 4 15:05:52 New daily persiste nt headache 41685513824 9105 Active [address], [address] 4 16:29:33 Lichen sclerosu s of vulva 011589177 Active [address], [address] 4 15:22:25 Milia 482584835 Active [address], [place], [address] , [facility] 4 15:51:39 Obstruct keshia sleep apnea syndrome 96566744 Active 2023 DORIS JONES MA null, [facility] 4 09:39:29 Atherosc lerosis Active 2023 DORIS JONES MA null, [facility] 4 09:39:44 Cirrhosi s - non-alco holic 381969238 Active 2023 with esoph varices and low PLT but no ascites, jaundice or sx. RUPAL BARILLAS MD [address], [place], [address] , [facility] 4 06:56:02 Vulvitis 68215874 Active [address], [facility] [address] , [facility] 4 13:20:01 Thromboc ytopenic disorder 393917344 Active 2023 RUPAL BARILLAS MD [address], [facility] [address] , [facility] 4 13:23:28 Decompen sated cirrhosi s of liver 899751051 Active 2023 INDIRA WATSON [address], [place], [address] , [facility] 4 14:23:47 Type 2 diabetes mellitus without complica tion 392094351 Active 2023 Problem Code: E11.9; Problem Code Type: ICD-10; INDIRA W[address] Dr, [place], [address] , [facility] 4 15:17:00 Coronary arterios clerosis 37288317 Active 2023 DORIS JONES MA null, [facility] 4 12:31:32 Hyperpig mentatio n of skin 82616495 Active [address], [place], [address] , [facility] 15:19:42 Pneumoni a 291525609 Completed 202303/27/2024 10/30/19 23 - Improved - Rupal Barillas MD - But with persiste nt evidence of congesti on in right lung. Advised chest x-ray in a couple of weeks to evaluate for any persiste nt abnormal ities requirin g further follow-u p. She has not had imaging yet with this infectio n. Problem Code: J18.9; Problem Code Type: ICD-10; MD Livan [address], [place], [address] , [facility] 14:21:53 Cough 59823817 Completed 202303/27/2024 Problem Code: R05.8; Problem Code Type: ICD-10; MD [address]ivan [address], [place], [address] , [facility] 14:21:53 Notes:Some problems listed i n Document: #[id number] could not be added to this patient's chart. Please review this document and add these problems to the patient's chart manually as needed. Problem Notes None recorded. Procedures Surgical History Date Name Laterality Status Provider Name and Address Organization Details Recorded Time 4 Cryosurgery Multiple Actinic Keratoses completed MD Livan R[address] Dr, [place], [address], [facility] 03/06/2024 11:24:31 4 Cryosurgery Warts/Skin Tags completed MD Livan [address], [place], [address], [facility] 10/18/2023 15:47:48 4 Cryosurgery Warts/Skin Tags completed MD Livan RODRIGUEZ Dr, [facility] [address], [facility] 10/07/2023 13:34:27 Imaging Results None recorded. Procedure Notes None recorded. Medical Equipment None Reported. Allergies Allergen ID Allergen Name Allergen Category Reaction Reaction Severity Criticality Documentation Date Start Date Code Code System Note Provider Name and Address Organization Details Recorded Time 42730 erythromy laura medicatio n other moderate Not available 02/15/20232013 4053 RxNorm stoma ch pain [facility] 12:53:11 69666 Bactrim medicatio n itching moderate Not available 08/01/20232013 59460 9 RxNorm itchy skin [facility] 12:51:33 16072 codeine medicatio n itching moderate Not available 08/01/20232013 2670 RxNorm itchy , paran oid [facility] 12:52:07 55033 Demerol medicatio n other moderate Not available 08/01/20232013 08816 1 RxNorm can' t sleep [facility] 12:52:55 06373 simvastat in medicatio n nausea moderate Not available 08/01/20232013 33836 RxNorm (ALLS TATIN S) [facility] 12:53:40 74755 Trulicity medicatio n vomiting moderate low 09/25/2023 70971 96 RxNorm MD Livan [address], [place], [address] , [facility] 12:57:22 Medications Name Sig Start Date Stop [...] tablet twice a day by oral route. 2023 active [facility] Not Available Not Available Not Avai lable gabapenti n 600 mg tablet TAKE 1 [...] day by oral route. 03/19 completed brice admissio n for hypokale morro Not Available Not Available [...] once a day 12/[address] Wallis, [facility], after August 2022 OV Not Available Not [...] THREE TIMES A DAY NEEDED FOR COUGH 03/27 completed Not Available Not Available Not Available doxycycli ne monohydra te 100 mg [...] tablet twice a day by oral route. 2023 active Not Available Not Available Not Avai lable nystatin 100,000 unit/gram topical cream APPLY TOPICALL [...] 1 capsule every 12 hours by oral route. 04/16 completed Not Available Not Available Not Available [...] mg capsule 3 capsule once a day 03/27 completed Not Available Not Available Not Available Januvia 50 mg tablet Take 1 tablet [...] Multivita l 1 tablet once a day 03/27 completed Not Available Not Available Not Available Twinrix (PF) 720 LILO unit-20 mcg/mL intramusc [...] increase to 1.8mg once daily. 2023 active Pt states taking 1.2mg Not Available Not Available Not Available Fioricet 50 mg-300 mg-40 mg capsule take [...] Relief 50 mcg/actua tion nasal spray,[facility] [place] 1 spray into both nostrils once a day as 08/08 completed Not Available Not Available Not Available Allergy unknown allergy pill prn 03/27 completed Not Available Not Available Not Available Shingrix (PF) 50 mcg/0.5 mL intramusc [...] Details Last Updated DateTime 4 154.94 cm 26.5 kg/m2 16592.9 3 g 97.6 [degF] 97 % 97 % 83 /min 120 mm[Hg] 58 mm[Hg] ABDIRAHMAN MURRY RN [facility] 4 14:13:12 Social History Question Answer Notes LastModified by Organizat ion Details LastModified Time Tobacco Smoking Status Never Smoker GIOVANNA ASIF, [facility] 03/18/2023 15:57:23 Would You Say That, In General, Your Health Is Good [email or web address] Information not available 08/09/2023 How Often Does Anyone, Including Family, Physically Hurt You? Never [email or web address] Information not available 08/09/2023 How Often Does Anyone, Including Family, Insult Or Talk Down To You? Rarely [email or web address] Information no t available 08/09/2023 How Often Does Anyone, Including Family, Threaten You With Harm? Never [email or web address] Information not available 08/09/2023 How Often Does Anyone, Including Family, Scream Or Curse At You? Never Information not available 08/09/2023 Within The Past 12 Months, You Worried That Your Food Would Run Out Before You Got Money To Buy More. Never True [email or web address] Information n ot available 08/09/2023 Within The Past 12 Months, The Food You Bought Just Didn't Last And You Didn't Have Money To Get More. Never True [email or web address] Information not available 08/09/2023 How Hard Is It For You To Pay For The Very Basics Like Food, Housing, Medical Care, And Heating? Would You Say It Is: Somewhat Hard [email or web address] Information not available 08/09/2023 In The Past 12 Months, Has Lack Of Reliable Transportation Kept You From Medical Appointments, Meetings, Work Or From Getting Things Needed For Daily Living? No Information not available 08/09/2023 What Is Your Housing Situation Today? I Have Housing. [email or web address] Information not available 08/09/2023 How Often In The Past Year Have You Used Marijuana (including Smoking, Vaping, Dabbing, Or Edibles)? Never [email or web address] Information not available 08/09/2023 How Often In The Past Year Have You Used Prescription Medications That Were Not Prescribed To You? Never [email or web address] Information not available 08/09/2023 How Often In The Past Year Have You Taken Your Own Prescription Medication More Than The Way It Was Prescribed Or For Different Reasons Than Its Intended Purpose? Never [email or web address] Information not available 08/09/2023 How Often In The Past Year Have You Used Other Drugs (for Example, Heroin, Cocaine, Meth, Salvia, Inhalants)? Never [email or web address] Information not available 08/09/2023 Have You Ever Used IV Drugs? No [email or web address] Information not available 08/09/2023 Date Of Most Recent SBINS 08/09/2023 [email or web address] Information not available 08/09/2023 What Was The Date Of Your Most Recent Tobacco Screening? 10/18/2023 [email or web address] Information n ot available 10/18/2023 Has Tobacco Cessation Counseling Been Provided? No [email or web address] Information not available 10/25/2023 Do You Or Have You Ever Used Any Other Forms Of Tobacco Or Nicotine? No [email or web address] Information not available 03/18/2023 Sex: Female Functional Status None recorded. Mental Status None recorded. Family History Relationship Description Onset Age of this Age Resolved Age Notes LastModified by Organization Details LastModified Time Mother Family history of acute medical disorder 70 Not available 2022 03:54:47 Notes:*Problem: Mother: d. 6 7 , cirrhosis, non ETOH Father: d. [place], acute hepatitis Sisters: x1, cirrhosis, non ETOH, [...] high-dose, trivalent, PF 4 completed GIOVANNA ASIF, [facility] 01/09/2024 16:25:43 COVID-19, mRNA, LNP-S, PF, mayito-sucrose, 30 mcg/0.3 mL 4 completed GIOVANNA ASIF, [facility] 01/09/2024 16:25:43 Td (adult), 2 Lf tetanus toxoid, preservative free, adsorbed 7 completed Not Available [facility] 02/15/2023 05:29:32 Hep A-Hep B 7 completed Not Available [facility] 02/15/2023 05:29:32 Hep A-Hep B 6 completed Not Available [facility] 02/15/2023 05:29:32 Tdap 7 completed Not Available [facility] 02/15/2023 05:29:32 Pneumococcal conjugate PCV 13 7 completed Not Available [facility] 02/15/2023 05:29:32 Td(adult) unspecified formulation 6 completed Not Available [facility] 02/15/2023 05:29:32 Influenza, split virus, trivalent, preservative 6 completed Not Available [facility] 02/15/2023 05:29:32 Influenza, split virus, trivalent, preservative 5 completed Not Available [facility] 02/15/2023 05:29:32 Influenza, split virus, quadrivalent, PF 2 completed Not Available [facility] 02/15/2023 05:29:33 Influenza, split virus, quadrivalent, PF 3 completed Not Available [facility] 02/15/2023 05:29:33 Influenza, split virus, quadrivalent, preservative 7 completed Not Available [facility] 02/15/2023 05:29:33 Influenza, split virus, quadrivalent, preservative 8 completed Not Available [facility] 02/15/2023 05:29:33 Influenza, high-dose, quadrivalent, PF 1 completed Not Available [facility] 02/15/2023 05:29:33 COVID-19, mRNA, LNP-S, PF, 100 mcg/0.5mL dose or 50 mcg/0.25mL dose 1 completed Not Available [facility] 02/15/2023 05:29:33 COVID-19, mRNA, LNP-S, PF, 100 mcg/0.5mL dose or 50 mcg/0.25mL dose 1 completed Not Available [facility] 02/15/2023 05:29:33 COVID-19, mRNA, LNP-S, PF, 100 mcg/0.5mL dose or 50 mcg/0.25mL dose 2 completed Not Available [facility] 02/15/2023 05:29:33 SARS-COV-2 (COVID-19) vaccine, UNSPECIFIED 1 completed Not Available [facility] 02/15/2023 05:29:34 COVID-19, mRNA, LNP-S, bivalent, PF, 30 mcg/0.3 mL dose 3 completed Not Available [facility] 02/15/2023 05:29:34 COVID-19, mRNA, LNP-S, bivalent, PF, 30 mcg/0.3 mL dose 2 completed Not Available [facility] 02/15/2023 05:29:34 pneumococcal polysaccharide PPV23 7 completed Not Available [facility] 02/15/2023 05:29:34 pneumococcal polysaccharide PPV23 5 completed Not Available [facility] 02/15/2023 05:29:34 pneumococcal polysaccharide PPV23 1 completed Not Available [facility] 02/15/2023 05:29:34 Hep B, adult 7 completed Not Available [facility] 02/15/2023 05:29:34 influenza, unspecified formulation 8 completed Not Available [facility] 02/15/2023 05:29:34 influenza, unspecified formulation 4 completed Not Available [facility] 02/15/2023 05:29:34 influenza, unspecified formulation 9 completed Not Available [facility] 02/15/2023 05:29:35 Influenza, high-dose, quadrivalent, PF 3 completed Not Available [facility] 04/19/2023 05:31:38 COVID-19, mRNA, LNP-S, PF, mayito-sucrose, 30 mcg/0.3 mL 3 completed Not Available [facility] 04/19/2023 05:31:38 Past Encounters Encounter ID Performer Location Encounter Start Date Encounter Closed Date Diagnosis/Indication Diagnosis SNOMED-CT Code Diagnosis ICD10 Code Diagnosis Note [id number] RUPAL BARILLAS MD [address] [address] 03/04/2024 13:41:07 03/04/2024 14:36:13 Neuropathy due to type 2 diabetes mellitus [id number] 21280 E11.40 Actinic keratosis 167829 007 L57.0 L eyelid, treated with cryotherap y today, re-eval at next OV. Decompensa nate cirrhosis of liver 619464658 K74.60 Chronic diarrhea 1404643 09 K52.9 Castillo's esophagus 3029 90713 K22.70 Atypical chest pain 1025 50824 R07.89 Psychophys iologic insomnia 108552993 F51.04 Cough 70813444 R05.9 [id number] RUPAL BARILLAS MD [address] [address] 03/17/2024 13:44:52 03/17/2024 16:08:58 Acute lower respiratory tract infection 006895068 J22 Findings concerning for possible pneumonia. Advised ER evaluation . Updated Brice provider. Her will bring her directly there. Acute confusion 02392113 0 R41.0 She was unable to give me any details and seemed more confused than usual, concerning for possible delirium. Advised ER evaluation . Her [id number] EMORY FOSTER LPN [address] [address] 03/23/2024 11:25:55 03/23/2024 11:44:16 Hypokalemia 16718029 E87.6 [id number] RUPAL BARILLAS MD [facility] [address] [place] [address] 03/27/2024 13:41:08 03/27/2024 14:39:35 Esophageal varices without bleeding 94602395 I85.00 Neuropathy due to type 2 diabetes mellitus 9153921890 66136 E11.40 Mild inter mittent asthma 656742204 J45.20 History of urinary tract infection 7861265441 107 Z87.440 Minimal co gnitive impairment 846095576 R41.89 has f/u for cognitive scg with [facility] scheduled. Encouraged use of lists. Chronic diarrhea 5614454 09 K52.9 Health Concerns Section Related Observation LastModified by Organization Detai ls LastModified Time None Recorded Concern Status LastModified by Organization Details LastModified Time None Recorded Payers Encounter Date Sequence Insurance Name Policy Number Policy Lucas Covered Member ID Lucas Member ID Guarantor Name 03/27/2024 1 [id number]A [place]ANTAGE - PPO) [id number] Milka Turner Aric [id number] Milka Yue Aric Notes Date Note Type Note Provider Name and Address Organization Details Recorded Time 03/27/2024 text/html CC: f/u hospitalization for UTI and hypokalemia, chronic diarrhea Milka presents for a follow-up visit after a brief hospitalization for a urinary tract infection (UTI) and mild hypokalemia. She reports that her potassium levels have normalized according to repeat labs. The patient has been experiencing loose stools for the past 3 to 4 months, with no improvement despite taking Imodium. She has been on omeprazole 40 mg BID and Victoza 1.2 mg daily. The patient describes her stools as varying from liquidy to soft with a Play-Archana consistency. She has tried stopping Victoza in the past due to unavailability, but the loose stools persisted. Milka has been taking 2 Imodium daily, which provides temporary relief for about a day. The patient is also taking metformin. During her recent hospitalization, Milka experienced low blood pressure, burning during urination, and a fever that caused shaking. She was admitted to [facility] for two nights. RUPAL BARILLAS MD [address], [place], [address], [facility]. 03/27/2024 15:31:44 OBGyn Episode No OBEpisode recorded.
--- OUTSIDE RECORDS SUMMARY | 2024-04-16 15:38 | XMS_ITS | Continuity of Care Document ---
Author Organization [place] - [facility] Address [address] [place] [address] Care Team Providers Care Television Reporter Name Role Phone CRYSTAL MCCORMACK Sanitation Manager LANI WALLIS Tool And Die Inspector Assessment No assessment recorded. Plan of Treatment Reminders Order Date Submit Date Provider Last Modified By Organization Details Last Modified Time Details Appointments Follow Up 30 2024 01:20P Dillan BARILLAS Not available Not available Not available Lab BMP, serum or plasma 2023 024 [email or web address] [facility] (Registration ), [address] [place] [address] [place], [address], 03/30/2024 07:17:36 BMP, serum or plasma 2023 024 [email or web address] [facility] (Registration ), [address] [place] [address] [place], [address], 03/31/2024 12:02:32 Referral None recorded . Procedures None recorded . Surgeries None recorded . Imaging None recorded . Medication Orders None recorded . Patient TargetsNo targets recorded. Patient InstructionsNo instructions recorded. Reason for Referral None Reported. Results Created Date Observation Date Name Description Value Unit Range Abnormal Flag Note LastModifiedBy Organization Detail LastModifiedTime 03/17/2003/17/2024 xr chest 2V Pa and later al [facility] RADIOL OGY Collins Lemus 19841 RADIOL OGY TRANSC RIPTIO N REPORT _ Patien t Name: CRISTEL SEGUNDO MRN: Sex: : Age: [id number] F [id number] Accoun t: Access ion: Admit: StayTy pe: [id number] 2023 E Ravinder d: Order ID: Submit nate: David aly Provid er: 2023 16:03 [id number] Zoey MOSLEY nate: Techno logist : Result [...] ce of pneumo shirlene. Thank you for bzigniew mcdaniels us partic ipate in the care of this patien t. If you are a [facility] er and have any questi ons regard ing this report , please contac t the number below. For patien ts who have questi ons please contac t the health care profes sional that reques nate your imagin g first. Electr onical ly signed by: Kimberly Keith MD Radiol sohan Sheppard n ([phone]), at 2023 4:28 PM INTERFACE [facility] (Lab) [address] [place] [address], [address], 03/17/2024 16:35:27 03/17/20 24 03/17/2024 EKG order yony aly 12 lead [facility] [place] bayVirgilioamelie [address] EKG TRANSC RIPTIO N REPORT _ Accoun t: Access ion: Admit: StayTy pe: [id number] 210 2023 E/R Observ ation: Order ID: Submit nate: David aly Provid er: 2023 16:34 [id number] KIN BOYLE _ [place] [id number] [facility] Date: 2023-04 Pat Name: KAYLEE Khan Depart ment: Brice bermudez ID: [id number] Room: 3B Gender : F Techni perri: jr : 1941-0 06-22 Reques nate By: FRANC Kamara Order Number : [id number] Kelby mcdaniels MD: Jung Corona Measur ements Interv als [place] Rate: 109 P: 57 ND: 182 QRS: -22 QRSD: 92 T: 0 QT: 328 QTc: 441 Interp retive Statem ents Sinus tachyc ardia Poor R wave progre ssion, likely due to lead placem ent Compar ed to ECG 2023 09:24: 01 Sinus rhythm no longer presen t Electr onical ly Signed On 2023 19:33: 53 EST by Jung Corona [facility] (Lab) [address] [place], [address], 03/17/2024 19:35:41 Result Notes None recorded. Problems Name Problem SNOMED Code Status Onset Date Resolution Date Notes Provider Name and Address Organization Details Recorded Time Acute lower respirat ory tract infectio n 470192783 Completed 202303/27/[address], [facility] [address] [address] 4 14:21:53 Acute confusio n 023101405 Completed 202303/27/[address], [facility] [address] [place] [address] 4 14:21:53 Mild intermit tent asthma 353331717 Active [address], [place] [address] , [facility] 4 15:28:45 Chronic cough 34443398 Active [address], [facility] [address] [place] [address] 5 14:11:35 Dysuria 38857094 Active 2024 Problem Code: R30.0; Problem Code Type: ICD-10; MD Livan RODRIGUEZ Dr, [facility] [address] [place] [address] 5 14:40:58 Dry lips 942169282 Active [address], [facility] [address] [place] [address] 5 15:15:20 Loose stool 034278083 Active [address], [address] 5 15:16:13 Encopres is 488235909 Active [address], [place] [address] , [facility] 5 15:16:22 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 933892247 Active [address], [address] 5 15:16:36 Shannon kamara hyperten eugene 63739378 Completed 201305/13/2023 Problem Code: I10; Problem Code Type: ICD-10; MD Livan RODRIGUEZ Dr, [address] 4 13:45:04 Migraine 43316406 [facility] 4 12:45:27 History of disorder of digestiv e system 901992287 Completed 201305/13/2023 Problem Code: Z87.19; Problem Code Type: ICD-10; MD Livan RODRIGUEZ Dr, [place] [address] , [facility] 4 13:45:04 Restless legs 93960378 Active 2013 Gail rodriguez, [facility] 4 12:48:18 Disorder of nervous system due to type 2 diabetes mellitus 395922633 Completed 201305/13/2023 04/27/19 20 - Comments only [...] Code Type: ICD-10; MD Livan RODRIGUEZ Dr, [facility] [address] [place] [address] 4 13:45:04 Allergic rhinitis 39031973 Completed 201305/13/2023 Problem Code: J30.9; Problem Code Type: ICD-10; MD Livan RODRIGUEZ Dr, [address] 4 13:45:04 Mixed hyperlip idemia 908801901 Active 2013 [facility] 4 12:45:48 Neuropat 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 Boykni, chemo instilla tion, straight caths [facility] 4 12:43:10 History of nutritio nal disorder 022122168 Completed 201405/13/2023 RUPAL BARILLAS MD [address], [place], [address] , [facility] 4 13:45:04 Irritabl e bowel syndrome 18048863 Active 2014 [facility] 4 12:45:06 Eczema 32394202 Active 2014 [facility] 4 12:38:10 Hernia of abdomina l cavity 14090042 Active 2015 [facility] 4 12:41:15 Cirrhosi s of liver 74221275 Completed 201505/13/2023 09/22/19 20 - Comments only - Nat Bryant M.D. - Has gained some weight, and possibly has ascites, although I have never examined her before. Follow-u p as planned tomorrow for imaging, labs, and speciali [facility] ent at [facility]. Problem Code: K74.69; Problem Code Type: ICD-10; MD Livan RODRIGUEZ Dr, [place], [address] , [facility] 4 13:45:04 History of urinary tract infectio n 43910059432 07 Completed 201505/13/2023 08/03/19 16 - Comments [...] Code Type: ICD-10; MD Livan RODRIGUEZ Dr, [facility] [address] [place] [address] 4 13:45:04 Screenin g for malignan t neoplasm of breast Completed 201505/13/2023 Problem Code: Z12.39; Problem Code Type: ICD-10; MD Livan RODRIGUEZ Dr, [address] 4 13:45:04 Candidia sis of vagina 73874110 Completed 201505/13/2023 Problem Code: B37.3; Problem Code Type: ICD-10; MD Livan RODRIGUEZ Dr, [address] 4 13:45:04 Portal hyperten eugene 32461244 Active 2015 no ascites or encephal opathy, EGD 2015 (gastric ulcer) [facility] 4 12:47:45 Genitour inary symptoms 611939752 Completed 201504/17/2016 Problem Code: R39.89; Problem Code Type: ICD-10; Not Available [facility] 3 04:10:10 Screenin g for malignan t neoplasm of colon Completed 201605/13/2023 Problem Code: Z12.11; Problem Code Type: ICD-10; MD Livan RODRIGUEZ Dr, [facility] [address] , [facility] 4 13:45:04 Pneumoni a 116227552 Completed 201602/15/2017 02/12/20 17 - Improved - 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 GUEST ROOM INSPECTOR - s/p tx with azithrom ycin pt signific antly improved RTC if sx worsen/p ersist Problem Code: J18.9; Problem Code Type: ICD-10; MD Livan RODRIGUEZ Dr, [place] [address] 4 14:21:53 Orthosta tic hypotens ion 48660407 Active 2017 [facility] 4 12:46:41 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 07361907 Active 2018 small endoscop y 2019 [facility] repeat one year [facility] 4 12:39:42 Hepatic failure 97326667 Completed 201805/13/2023 Problem Code: K72.90; Problem Code Type: ICD-10; MD Livan RODRIGUEZ Dr, [address] 4 13:45:04 Acute upper respirat ory infectio n 70648617 Completed 201811/08/2018 Problem Code: J06.9; Problem Code Type: ICD-10; MD Livan RODRIGUEZ Dr, [address] 4 13:45:04 Proteinu vinod 67857190 Completed 201805/13/2023 Problem Code: R80.9; Problem Code Type: ICD-10; MD Livan RODRIGUEZ Dr, [address] 4 13:45:04 Hyperlip idemia 46565312 Active 2018 [facility] 4 12:44:49 Gastroes ophageal reflux disease without esophagi tis 335131650 Active 2019 [place] La[facility] 4 12:39:54 Urinary tract infectio us disease 64665262 Completed 201909/29/2019 09/22/19 20 - Comments only - Nat Bryant M.D. - UA positive for leuks, blood, nitrites . Unfortun ately, was not able to provide large enough sample to send for culture. Urine culture from recent hospital ization showed pansensi tive E. coli, so we will treat as they did with cephalex in. Instruct ed her to call with janett mcdaniels or dominike ravindere. Problem Code: N39.0; Problem Code Type: ICD-10; Not Available [facility] 3 04:10:12 Nervous system and sense organ diseases 356881471 Completed 202005/13/[address], [place], [address] , [facility] 4 13:45:04 Fall on or from stairs or steps Completed 202005/27/2020 Problem Code: W10.9xxA ; Problem Code Type: ICD-10; Not Available [facility] 3 04:10:12 Knee joint effusion 324171736 Completed 202006/06/2020 Problem Code: M25.469; Problem Code Type: ICD-10; Not Available [facility] 3 04:10:13 Low back pain 680694096 Completed 202006/20/2020 Problem Code: M54.5; Problem Code Type: ICD-10; INDIRA Y[address], [place], [address] , [facility] 4 14:31:55 Dysuria 46615119 Completed 202009/03/2020 Problem Code: R30.0; Problem Code Type: ICD-10; MD Livan RODRIGUEZ Dr, [place], [address] , [facility] 5 14:40:58 Psychoph ysiologi c insomnia 641995193 Active 2020 Insomnia , chronic Gail Lavern rodriguez, [facility] 4 12:48:07 Dizzines s and giddines s 030908483 Completed 202010/31/2020 Problem Code: R42; Problem Code Type: ICD-10; Not Available [facility] 3 04:10:14 Atrophic vaginiti s 19762366 Active 2020 Gail rodriguez, [facility] 4 12:37:19 Urinary tract infectio us disease 81714615 Completed 202003/03/2021 Problem Code: N39.0; Problem Code Type: ICD-10; Not Available [facility] 3 04:10:14 Disorder of hematopo ietic structur e 241129020 Completed 202105/13/2023 Problem Code: D75.89; Problem Code Type: ICD-10; RUPAL BARILLAS MD [address], [address] 4 13:45:04 Tension- type headache 441335904 Completed 202105/13/2023 Problem Code: G44.209; Problem Code Type: ICD-10; RUPAL BARILLAS MD [address], [address] 4 13:45:04 Acute conjunct ivitis of left eye 75864900424 9105 Completed 202112/19/2021 12/13/19 22 - Comments only - Nat Bryant M.D. - Likely bacteria l. Rx sent for e-mycin ointment . Call for reevalua tion if worsenin g, or no better w/in 48 hours. Problem Code: H10.32; Problem Code Type: ICD-10; Not Available [facility] 3 04:10:15 Cerebrov ascular disease 69661659 Active 2021 Gail rodriguez, [facility] 4 12:37:49 Urinary tract infectio us disease 55184352 Completed 202208/28/2022 Problem Code: N39.0; Problem Code Type: ICD-10; Not Available [facility] 3 04:10:15 Pneumoni a 751809008 Completed 202211/08/2022 10/30/19 23 - Improved - [...] Code Type: ICD-10; MD Livan RODRIGUEZ Dr, [place], [address] , [facility] 4 14:21:53 Edema 469441681 Active 2022 Peripher al edema [facility] 4 12:38:42 Castillo' s esophagu s 296832823 Active 2022 [facility] 4 12:37:33 Candidia sis of skin 73794963 Completed 201810/23/2022 Problem Code: B37.2; Problem Code Type: ICD-10; Not Available [facility] 3 04:10:16 Acute atopic conjunct ivitis 53113393 Completed 201804/21/2019 Problem Code: H10.10; Problem Code Type: ICD-10; Not Available [facility] 3 04:10:16 Constipa tion 71019894 Completed 201301/02/2023 Problem Code: K59.00; Problem Code Type: ICD-10; Not Available [facility] 3 04:10:16 Cough 70111361 Completed 202201/02/2023 Problem Code: R05.8; Problem Code Type: ICD-10; MD Livan RODRIGUEZ Dr, [place], [address] , [facility] 4 14:21:53 Hyperten sive disorder 66518791 Completed 201301/02/2023 Not Available [facility] 3 04:10:17 Neoplasm of urinary bladder 297691819 Completed 201301/02/2023 Problem Code: D49.4; Problem Code Type: ICD-10; Not Available [facility] 3 04:10:17 Enthesop athy 59310344 Completed 201812/26/2020 Problem Code: M77.9; Problem Code Type: ICD-10; Not Available [facility] 3 04:10:17 Hypercal cemia 65475816 Completed 201401/02/2023 Not Available [facility] 3 04:10:18 Lung field abnormal 813782986 Completed 201607/29/2017 Problem Code: R91.8; Problem Code Type: ICD-10; Not Available [facility] 3 04:10:18 Insomnia 538111885 Completed 201906/06/2021 Problem Code: F51.09; Problem Code Type: ICD-10; Not Available [facility] 3 04:10:18 Disorder of lung 97423209 Completed 201710/23/2022 Problem Code: J98.4; Problem Code Type: ICD-10; Not Available [facility] 3 04:10:18 Type 2 diabetes mellitus without complica tion 944965595 Completed 201301/02/2023 Problem Code: E11.9; Problem Code Type: ICD-10; [address], [place], [address] , [facility] 4 15:17:00 Pain of left shoulder joint 63065810351 144908 Completed 201406/06/2021 Problem Code: M25.512; Problem Code Type: ICD-10; Not Available [facility] 3 04:10:19 Screenin g for osteopor osis Completed 201602/11/2017 Problem Code: Z13.820; Problem Code Type: ICD-10; Not Available [facility] 3 04:10:19 Inflamed seborrhe ic keratosi s 715095829 Completed 201910/23/2022 Problem Code: L82.0; Problem Code Type: ICD-10; Not Available [facility] 3 04:10:20 Disorder of brain 21396338 Completed 202103/05/2022 Problem Code: G93.40; Problem Code Type: ICD-10; Not Available [facility] 3 04:10:20 Other idiopath ic peripher al neuropat hy NOS Completed 201301/02/2023 Not Available [facility] 3 04:10:20 Obesity 367999949 Completed 201301/02/2023 Not Available [facility] 3 04:10:20 Fatigue 29778784 Completed 201810/27/2018 Problem Code: R53.83; Problem Code Type: ICD-10; Not Available [facility] 3 04:10:21 Genitour inary symptoms 604249148 Completed 201904/04/2020 Problem Code: R39.9; Problem Code Type: ICD-10; Not Available [facility] 3 04:10:21 Benign paroxysm al position al vertigo 800559097 Completed 202001/02/2023 Problem Code: H81.10; Problem Code Type: ICD-10; Not Available [facility] 3 04:10:22 Disorder of skin and/or subcutan eous tissue 66126077 Completed 201904/04/2020 Problem Code: L98.9; Problem Code Type: ICD-10; Not Available [facility] 3 04:10:22 Osteophy te of bone 55760033307 9100 Completed 201906/28/2020 Problem Code: M25.776; Problem Code Type: ICD-10; Not Available [facility] 3 04:10:22 Gastric ulcer 671428509 Completed 201501/02/2023 Problem Code: K25.9; Problem Code Type: ICD-10; Not Available [facility] 3 04:10:22 Right side sciatica 09457718476 9101 Completed 201804/21/2019 Problem Code: M54.31; Problem Code Type: ICD-10; Not Available [facility] 3 04:10:23 Candidia sis 17612357 Completed 201308/22/2015 Problem Code: B37.9; Problem Code Type: ICD-10; Not Available [facility] 3 04:10:23 Steatosi s of liver 387263805 Completed 201302/10/2016 Problem Code: K76.0; Problem Code Type: ICD-10; Not Available [facility] 3 04:10:23 Cough 11877313 Completed 201912/26/2020 Problem Code: R05; Problem Code Type: ICD-10; RUPAL BARILLAS MD [address], [place], [address] [facility] 14:21:53 Xerostom ia 33794343 Completed 202006/06/2021 Problem Code: R68.2; Problem Code Type: ICD-10; [facility] 4 12:49:03 Candidal vulvovag initis 08494627 Completed 201301/02/2023 Problem Code: 112.1; Problem Code Type: ICD-9; Not Available [facility] 3 04:10:25 Intestin al disaccha ridase deficien cy 78185140 Completed 201301/02/2023 Problem Code: 271.3; Problem Code Type: ICD-9; Not Available [facility] 3 04:10:25 Acute bronchit is 37295918 Completed 201912/26/2020 Problem Code: J20.9; Problem Code Type: ICD-10; Not Available [facility] 3 04:10:26 Peripher al nerve disease 368173636 Completed 201301/02/2023 Not Available [facility] 3 04:10:26 Acute upper respirat ory infectio n 45025726 Completed 202205/13/2023 Problem Code: J06.9; Problem Code Type: ICD-10; MD Livan RODRIGUEZ Dr, [address] 4 13:45:04 Diastoli c heart failure 941823787 Active 2022 echo 03/[address], [address] 3 11:17:46 Chest pain 91283506 Completed 202205/13/2023 Problem Code: R07.89; Problem Code Type: ICD-10; MD Livan RODRIGUEZ Dr, [address] 4 13:45:03 Aortic stenosis , non-rheu matic 555030760 Active 2022 mild 03/2023 echo MD Livan RODRIGUEZ Dr, [address] 4 06:52:21 Senile hyperker atosis 647977434 Completed 202205/13/2023 Problem Code: L82.1; Problem Code Type: ICD-10; MD Livan RODRIGUEZ Dr, [address] 4 13:45:03 Melanocy tic nevus 783173807 Completed 202205/13/2023 Problem Code: D22.9; Problem Code Type: ICD-10; MD Livan RODRIGUEZ Dr, [address] 4 13:45:04 [employer] 170112117 Completed 202205/13/2023 01/31/20 23 - Comments only - Rupal Barillas MD - neuro exam not c/w CVA; will eval further at next visit. Problem Code: R27.9; Problem Code Type: ICD-10; MD [address]ivan [address], [place], [address] , [facility] 4 13:45:03 Dyspnea 932496585 Completed 202205/13/2023 Problem Code: R06.09; Problem Code Type: ICD-10; MD Livan RODRIGUEZ Dr, [facility] [address] , [facility] 4 13:45:03 Chronic diarrhea 385063389 Active 2023 [facility] 12:37:57 Drug-ind uced xerostom ia 578400916 Active [address], [facility] [address] , [facility] 13:38:38 Microalb uminuric diabetic nephropa thy 501598465 Active 2023 [facility] 12:45:11 Dyspnea on exertion 22041600 Active 2023 [facility] 12:37:57 Angular cheiliti s 283438929 Active 2023 [facility] 4 12:36:56 Xerostom ia 69924357 Active 2023 [facility] 12:49:03 History of adenomat ous polyp of colon 270712297 Active 2020 [facility] 12:43:44 Sialoade nitis 16200037 Completed 202308/09/[address], [facility] [address] , [facility] 4 16:48:36 Low back pain 302452216 Active 2023 Problem Code: M54.5; Problem Code Type: ICD-10; AMADEO AQUINOOST, IN[address], [facility] [address] [place] [address] 4 14:31:55 Chest pain on exertion 28404716 Active [address], [address] 4 12:24:41 Always hungry 737052299 Active [address], [address] 4 16:38:32 Altered bowel function 62496384 Active [address], [address] 4 16:38:44 Atypical chest pain 119587357 Active 2023 DORIS JONES MA [facility], [facility] 4 07:31:04 Acquired thromboc ytopenia 94490050 Active [address], [address] 4 09:56:08 Actinic keratosi s 562459482 Active [address], [facility] [address] [place] [address] 4 13:34:57 Nodule of lung 236917648 Active 2023 probable lipoma by PET. (benign) MD Livan RODRIGUEZ Dr, [facility] [address] [place] [address] 4 06:49:28 Minimal cognitiv e impairme nt 780643208 Active [address], [place], [address] , [facility] 4 15:05:52 New daily persiste nt headache 09905057507 9105 Active [address], [place], [address] , [facility] 4 16:29:33 Lichen sclerosu s of vulva 091430991 Active [address], [place], [address] , [facility] 4 15:22:25 Milia 003845203 Active [address], [place], [address] , [facility] 4 15:51:39 Obstruct keshia sleep apnea syndrome 56765644 Active 2023 DORIS JONES MA null, [facility] 4 09:39:29 Atherosc lerosis Active 2023 DORIS JONES MA null, [facility] 4 09:39:44 Cirrhosi s - non-alco holic 871135850 Active 2023 with esoph varices and low PLT but no ascites, jaundice or sx. MD Livan RODRIGUEZ Dr, [place], [address] , [facility] 4 06:56:02 Vulvitis 51862876 Active [address], [place], [address] , [facility] 4 13:20:01 Thromboc ytopenic disorder 036561977 Active [address], [facility] [address] , [facility] 4 13:23:28 Decompen sated cirrhosi s of liver 708115380 Active [address], [facility] [address] , [facility] 4 14:23:47 Type 2 diabetes mellitus without complica tion 363612959 Active 2023 Problem Code: E11.9; Problem Code Type: ICD-10; INDIRA [address] Dr, [facility] [address] , [facility] 4 15:17:00 Coronary arterios clerosis 66823036 Active 2023 DORIS JONES MA [facility], [facility] 4 12:31:32 Hyperpig mentatio n of skin 59372520 Active [address], [place], [address] , [facility] 4 15:19:42 Pneumoni a 312757144 Completed 202303/27/2024 10/30/19 23 - Improved - [...] Code Type: ICD-10; MD Livan R[address] Dr, [place], [address] , [facility] 4 14:21:53 Cough 80359827 Completed 202303/27/2024 Problem Code: R05.8; Problem Code Type: ICD-10; MD [address]ivan [address] Dr, [place], [address] , [facility] 14:21:53 Notes:Some problems listed i n Document: #[id number] could not be added to this patient's chart. Please review this document and add these problems to the patient's chart manually as needed. Problem Notes None recorded. Procedures Surgical History Date Name Laterality Status Provider Name and Address Organization Details Recorded Time 4 Cryosurgery Multiple Actinic Keratoses completed MD Livan RODRIGUEZ Dr, [facility] [address] [place] [address] 03/06/2024 11:24:31 4 Cryosurgery Warts/Skin Tags completed MD Livan RODRIGUEZ Dr, [facility] [id number] [place] [address] 10/18/2023 15:47:48 4 Cryosurgery Warts/Skin Tags completed MD Livan RODRIGUEZ Dr, [facility] [id number] [place] [address] 10/07/2023 13:34:27 Imaging Results None recorded. Procedure Notes None recorded. Medical Equipment None Reported. Allergies Allergen ID Allergen Name Allergen Category Reaction Reaction Severity Criticality Documentation Date Start Date Code Code System Note Provider Name and Address Organization Details Recorded Time 50746 erythromy laura medicatio n other moderate Not available 02/15/20232013 4053 RxNorm st[facility] ch [facility] 12:53:11 55530 Bactrim medicatio n itching moderate Not available 08/01/20232013 37695 9 RxNorm itchy skin Gail Puckett [facility] 12:51:33 40748 codeine medicatio n itching moderate Not available 08/01/20232013 2670 RxNorm itchy , paran oid [facility], [facility] 12:52:07 49080 Demerol medicatio n other moderate Not available 08/01/20232013 88732 1 RxNorm can' t sleep Gail rodriguez, [facility] 4 12:52:55 55857 simvastat in medicatio n nausea moderate Not available 08/01/20232013 64628 RxNorm (ALLS GINOIN S) Gail rodriguez, [facility] 4 12:53:40 51457 Trulicity medicatio n vomiting moderate low 09/25/2023 88979 96 RxNorm RUPAL BARILLAS MD [address], [place], [address] [place] [address] 4 12:57:22 Medications Name Sig Start Date [...] a day by oral route. 2023 active [facility] Not Available Not Available Not Avai [...] once a day 12/[address] Wallis, [facility], after August 2022 [...] Relief 50 mcg/actua tion nasal spray,moraima pension Fleming 1 spray into both nostrils once a [...] Not Available Not Available Not Available Vitals None Recorded Social History Question Answer Notes LastModified by Organizat ion Details LastModified Time Tobacco Smoking Status Never Smoker MARY PRETTY MA null, MA - [facility]. 03/18/2023 15:57:23 Would You Say That, In General, Your Health Is Good [email or web address] Information not available 08/09/2023 How Often Does Anyone, Including Family, Physically Hurt You? Never [email or web address] Information not available 08/09/2023 How Often Does Anyone, Including Family, Insult Or Talk Down To You? Rarely [email or web address] Information no t available 08/09/2023 How Often Does Anyone, Including Family, Threaten You With Harm? Never [email or web address] Information not available 08/09/2023 How Often Does Anyone, Including Family, Scream Or Curse At You? Never [email or web address] Information not available 08/09/2023 Within The Past [...] Would You Say It Is: Somewhat Hard [email or web address] Information not available 08/09/2023 In The Past 12 Months, Has Lack Of Reliable Transportation Kept You From Medical Appointments, Meetings, Work Or From Getting Things Needed For Daily Living? No [email or web address] Information not available 08/09/2023 What Is Your Housing Situation Today? I Have Housing. [email or web address] Information not available 08/09/2023 How Often In The Past Year Have You Used Marijuana (including Smoking, Vaping, Dabbing, Or Edibles)? Never Information not available 08/09/2023 How Often In The Past Year Have You Used Prescription Medications That Were Not Prescribed To You? Never [email or web address] Information not available 08/09/2023 How Often In The Past Year Have You Taken Your Own Prescription Medication More Than The Way It Was Prescribed Or For Different Reasons Than Its Intended Purpose? Never [email or web address] Information not available 08/09/2023 How Often In The Past Year Have You Used Other Drugs (for Example, Heroin, Cocaine, Meth, Salvia, Inhalants)? Never [email or web address] Information not available 08/09/2023 Have You Ever Used IV Drugs? No [email or web address] Information not available 08/09/2023 Date Of Most Recent SBINS 08/09/2023 [email or web address] Information not available 08/09/2023 What Was The Date Of Your Most Recent Tobacco Screening? 10/18/2023 [email or web address] Information n ot available 10/18/2023 Has Tobacco Cessation Counseling Been Provided? No [email or web address] Information not available 10/25/2023 Do You Or Have You Ever Used Any Other Forms Of Tobacco Or Nicotine? No [email or web address] Information not available 03/18/2023 Sex: Female Functional Status None recorded. Mental Status None recorded. Family History Relationship Description Onset Age of this Age Resolved Age Notes LastModified by Organization Details LastModified Time Mother Family history of acute medical disorder 70 Not available 2022 03:54:47 Notes:*Problem: Mother: d. 6 7 , cirrhosis, non ETOH Father: d. [place], acute hepatitis Sisters: x1, cirrhosis, non ETOH, [...] high-dose, trivalent, PF 4 completed GIOVANNA ASIF, [facility] 01/09/2024 16:25:43 COVID-19, mRNA, LNP-S, PF, mayito-sucrose, 30 mcg/0.3 mL 4 completed GIOVANNA ASIF, [facility] 01/09/2024 16:25:43 Td (adult), 2 Lf tetanus toxoid, preservative free, adsorbed 7 completed Not Available [facility] 02/15/2023 05:29:32 Hep A-Hep B 7 completed Not Available [facility] 02/15/2023 05:29:32 Hep A-Hep B 6 completed Not Available [facility] 02/15/2023 05:29:32 Tdap 7 completed Not Available [facility] 02/15/2023 05:29:32 Pneumococcal conjugate PCV 13 7 completed Not Available [facility] 02/15/2023 05:29:32 Td(adult) unspecified formulation 6 completed Not Available [facility] 02/15/2023 05:29:32 Influenza, split virus, trivalent, preservative 6 completed Not Available [facility] 02/15/2023 05:29:32 Influenza, split virus, trivalent, preservative 5 completed Not Available [facility] 02/15/2023 05:29:32 Influenza, split virus, quadrivalent, PF 2 completed Not Available [facility] 02/15/2023 05:29:33 Influenza, split virus, quadrivalent, PF 3 completed Not Available [facility] 02/15/2023 05:29:33 Influenza, split virus, quadrivalent, preservative 7 completed Not Available [facility] 02/15/2023 05:29:33 Influenza, split virus, quadrivalent, preservative 8 completed Not Available [facility] 02/15/2023 05:29:33 Influenza, high-dose, quadrivalent, PF 1 completed Not Available [facility] 02/15/2023 05:29:33 COVID-19, mRNA, LNP-S, PF, 100 mcg/0.5mL dose or 50 mcg/0.25mL dose 1 completed Not Available [facility] 02/15/2023 05:29:33 COVID-19, mRNA, LNP-S, PF, 100 mcg/0.5mL dose or 50 mcg/0.25mL dose 1 completed Not Available [facility] 02/15/2023 05:29:33 COVID-19, mRNA, LNP-S, PF, 100 mcg/0.5mL dose or 50 mcg/0.25mL dose 2 completed Not Available [facility] 02/15/2023 05:29:33 SARS-COV-2 (COVID-19) vaccine, UNSPECIFIED 1 completed Not Available [facility] 02/15/2023 05:29:34 COVID-19, mRNA, LNP-S, bivalent, PF, 30 mcg/0.3 mL dose 3 completed Not Available [facility] 02/15/2023 05:29:34 COVID-19, mRNA, LNP-S, bivalent, PF, 30 mcg/0.3 mL dose 2 completed Not Available [facility] 02/15/2023 05:29:34 pneumococcal polysaccharide PPV23 7 completed Not Available [facility] 02/15/2023 05:29:34 pneumococcal polysaccharide PPV23 5 completed Not Available [facility] 02/15/2023 05:29:34 pneumococcal polysaccharide PPV23 1 completed Not Available [facility] 02/15/2023 05:29:34 Hep B, adult 7 completed Not Available [facility] 02/15/2023 05:29:34 influenza, unspecified formulation 8 completed Not Available [facility] 02/15/2023 05:29:34 influenza, unspecified formulation 4 completed Not Available [facility] 02/15/2023 05:29:34 influenza, unspecified formulation 9 completed Not Available [facility] 02/15/2023 05:29:35 Influenza, high-dose, quadrivalent, PF 3 completed Not Available [facility] 04/19/2023 05:31:38 COVID-19, mRNA, LNP-S, PF, mayito-sucrose, 30 mcg/0.3 mL 3 completed Not Available [facility] 04/19/2023 05:31:38 Past Encounters Encounter ID Performer Location Encounter Start Date Encounter Closed Date Diagnosis/Indication Diagnosis SNOMED-CT Code Diagnosis ICD10 Code Diagnosis Note [id number] RUPAL BARILLAS MD [address] [address] 03/04/2024 13:41:07 03/04/2024 14:36:13 Neuropathy due to type 2 diabetes mellitus 8925238961 94348 E11.40 Actinic keratosis 034916 007 L57.0 L eyelid, treated with cryotherap y today, re-eval at next OV. Decompensa nate cirrhosis of liver 481482803 K74.60 Chronic diarrhea 5463196 09 K52.9 Castillo's esophagus 3029 20930 K22.70 Atypical chest pain 1025 63013 R07.89 Psychophys iologic insomnia 354200875 F51.04 Cough 80092349 R05.9 [id number] RUPAL BARILLAS MD [address] [address] 03/17/2024 13:44:52 03/17/2024 16:08:58 Acute lower respiratory tract infection 475826487 J22 Findings concerning for possible pneumonia. Advised ER evaluation . Updated Brice provider. Her will bring her directly there. Acute confusion 97559913 0 R41.0 She was unable to give me any details and seemed more confused than usual, concerning for possible delirium. Advised ER evaluation . Her [id number] EMORY FOSTER LPN [address] [address] 03/23/2024 11:25:55 03/23/2024 11:44:16 Hypokalemia 18479065 E87.6 Health Concerns Section Related Observation LastModified by Organization Detai ls LastModified Time None Recorded Concern Status LastModified by Organization Details LastModified Time None Recorded Payers Encounter Date Sequence Insurance Name Policy Number Policy Lucas Covered Member ID Lucas Member ID Guarantor Name 03/23/2024 1 [id number] ([place]IC[place]/A DVANTAGE - PPO) [id number] Milka Corbett [id number] Milka Corbett OBGyn Episode No OBEpisode recorded.
--- OUTSIDE RECORDS SUMMARY | 2024-04-16 15:38 | XMS_ITS | Encounter Summary ---
Author Organization [facility] [place] [address] Care Team Providers Care Missile Inspector Name Role Phone Aysha Johnson MD Primary Care Provider [phone] Encounter Details Date Type Department Care Team (Late st Contact Info) Description 03/17/2024 Interpretation Only [facility] in [address] [address] Zoe Lay, PERSONAL PROPERTY ASSESSOR [address] [place] [address] [id number] Social History Tobacco Use Types Packs/Day Years [...] 04/28/2024 11:00 AM EST Appointment [place] [address] Molly Cui, PERSONAL PROPERTY ASSESSOR [facility] [place] [address] 04/28/2024 2:00 PM EST Office Visit [place] [address] Molly Cui APRN [facility] [place] [address] documented as of this encounter Procedures Procedure Name Priority Date/Time Associated Diagnosis Comments XR CHEST PA AND LATERAL STAT 03/17/2024 4:20 PM EST documented in this encounter Results * XR Chest PA & Lateral (Generic) (03/17/2024 4:20 PM EST) PT CLASS E RAD ADMITDTTM [id number] RAD PT RAD INFO [id number]^ALIREZA^C HELSEA^L RAD EXAM DESC XCXR2^XR CHEST 2V PA AND LATERAL^RIS [facility] WORKSTATION ID [id number] [facility] Anatomical Region Laterality Modality Chest N/A Radiographic Marlee ging Impressions 03/17/2024 4:28 PM EST Stable interval exam, no evidence of pneumonia. Thank you for letting us participate in the care of this patient. ??If you are a health care provider and have any questions regarding this report, please contact the number below. ??For patients who have questions please contact the health healthcare management that requested your imaging first. ? Narrative [...] patients who have questions please contactthe health healthcare management that requested your imaging first. Zoe L Alireza PERSONAL PROPERTY ASSESSOR IMG DX ORDERABLES documented in this encounter Visit Diagnoses Not on filedocumented in this encounter Care Teams Missile Inspector Relationship Specialty Start Date End Date Aysha Johnson MD [address] [place] [address] PCP - General Family Medicine 12/12/23 documented as of this encounter
--- OUTSIDE RECORDS SUMMARY | 2024-04-16 15:38 | XMS_ITS | Clinical Summary ---
Author Organization [facility] Address [facility] [place] [address] Care Team Providers Care Orthopedic Nurse Practitioner Name Role Phone Aysha Johnson MD Primary Care Provider [phone] Allergies Active Allergy Reactions Criticality Noted Date [...] mg capsule Take by mouth. 02/24/2009 Active lisinopril-hydroch lorothiazide (PRINZIDE;ZESTORET IC) 10-12.5 mg per tablet Take 1 tablet [...] Itching. Active fluticasone propionate (FLONASE) 50 mcg/actuation Harmony, Suspension 1 spray daily. Act keshia pramipexole [...] @ 0600. Active carvediloL (Coreg) 6.25 mg tabletIndications: Portal hypertension TAKE 1 TABLET BY MOUTH TWICE DAILY WITH MEALS 180 tablet 1 10/23/2023 Active isosorbide mononitrate CR (Imdur) 30 mg ER 24 hr tablet Take 30 mg by mouth 2 times daily. Active butalbital-aspirin -caffeine (Fiorinal) 50-325-40 mg tablet Take 1 tablet [...] nightly. Active nitroGLYcerin (Nitrostat) 0.3 mg sublingual tabletIndications: Coronary artery disease, unspecified vessel or lesion type, unspecified whether angina present, unspecified whether inaja or transplanted heart Place 1 tablet under the tongue every 5 minutes as needed for Chest pain. 25 tablet 12 12/13/2023 Active ranolazine ER (Ranexa) 500 mg ER 12 hr tabletIndications: Coronary artery disease, unspecified vessel or lesion type, unspecified whether angina present, unspecified whether inaja or transplanted heart Take 1 tablet by mouth 2 times daily. 60 tablet 12/13/2023 Active Additional Information Patient not taking.Reported on 12/20/2023 omeprazole (PriLOSEC) [address] capsuleIndications :Gastroesophageal reflux disease without esophagitis TAKE 1 CAPSULE BY MOUTH DAILY 100 capsule 04/14/2024 04/14/2025 Active Hospital, Clinic, or Other Facility Administered Medication Ordered Dose Route Frequency Start Date End Date Status diatrizoate meglumine (HYPAQUE, CYSTOGRAFIN) urethral solution 300 mLIndications:Urge incontinence 300 mL Urth ONCE PRN 07/22/2012 Active Active Problems Problem Noted Date Diagnosed Date Hepatic cirrhosis 05/19/2020 Overview (05/19/2020): Added automatically from request for surgery [id number] NAFLD (nonalcoholic fatty liver disease) 016 Mixed incontinence 07/27/2012 Bladder cancer 07/08/2012 S/P hysterectomy 07/08/2012 Vaginal lesion 07/08/2012 Encounters Date Type Department Care Team Description 04/14/2024 [place] [address] Molly Cui APRN Gastroesophageal reflux disease without esophagitis 03/17/2024 Interpretation Only [facility] in [address] [address] Zoe Lay APRN 01/20/2024 [place] [address] Molly Cui APRN Gastroesophageal reflux disease without esophagitis from Last 3 Months Family History Medical [...] 04/28/2024 11:00 AM [place] [address] [place], Molly A, [facility] [place] [address] 04/28/2024 2:00 PM EST Office Visit Gastroenterology at [facility] [place] [address] Molly Cui, [facility] [place] [address] Health Maintenance Due Date Last Done Comments CT Colonography 1941 Colonoscopy 1941 Colorectal Cancer Screening 1941 FIT DNA 1941 FIT 1941 Sigmoidoscopy (10 year) with FIT yearly 1941 Sigmoidoscopy 1941 Pneumoccocal Vaccine: 65+ (1 of 2 - PCV) 1960 Tetanus/Diphtheria/Pertussis Vaccines (1 - Tdap) 1960 Zoster vaccine (1 of 2) 06/23/1991 Advance Directive 1996 Bone Density Scan 2006 RSV Vaccine (1 - 1-dose 75+ series) 2016 Influenza (Flu) vaccine (1 o f 1 - Influenza standard series) 12/08/2023 PAP Smear Discontinued 07/08/2012 Covid-19 Vaccine Completed 01/09/2024, , 09/19/2022, Additional history exists Procedures Procedure Name Priority Date/Time Associated Diagnosis Comments XR CHEST PA AND LATERAL STAT 03/17/2024 4:20 PM EST [employer] CYTOLOGY FINAL REPORT Routine 07/08/2012 8:27 PM EDT from Last 3 Months or Most Recently Relevant to Health Maintenance Results * XR Chest PA & Lateral (Generic) (03/17/2024 4:20 PM EST) PT CLASS E RAD ADMITDTTM [id number] RAD PT RAD MD INFO [id number]^KEYANA^C HELSEA^L RAD EXAM DESC XCXR2^XR CHEST 2V PA AND LATERAL^RIS RAD WORKSTATION ID [id number] [facility] Anatomical Region Laterality Modality Chest N/A Radiographic Marlee ging Impressions 03/17/2024 4:28 PM EST Stable interval exam, no evidence of pneumonia. Thank you for letting us participate in the care of this patient. ??If you are a health care provider and have any questions regarding this report, please contact the number below. ??For patients who have questions please contact the health child care nurse that requested your imaging first. ? Electronically signed by: Avila Keith MD, [facility] ([phone]), at 03/17/2024 4:28 PM Narrative 03/17/2024 4:28 PM EST EXAMINATION: XR [...] patients who have questions please contactthe health child care nurse that requested your imaging first. Electronically signed by: Avila Keith MD, [facility]([phone]), at 03/17/2024 4:28 PM Zoe Yanes Keyana ACUPRESSURIST IMG DX ORDERABLES * Degreasing Wheel Operator Cytology Final Report (07/08/2012 8:27 PM EDT) Degreasing Wheel Operator Cytology Final Report ? [facility] ? Provider: ?? MOE BENJAMIN, ??Pt. Name: ?? NICK MENDIETA ?LOULOU ? Acc #: ?[id number] ?Pt. ? Col Date: ?? 07/08/2012 ?/Sex: ?1940,(72 years),Female ? Rec Date: ?? 07/08/2012 ?LOC: ?5L ? CYTOPATHOLOGY: ??WELT STITCH CLEANER ? ---Adequacy--- ? Specimen submitted is satisfactory. Vaginal Only. ? ---Cytopathologic Diagnosis--- ? NORMAL ? Negative for Intraepithelial Lesion or Malignancy (NILM). ? 07/09/12 ?? Screened by: ??LMY ??SLA ? 07/10/12 ?? Verified by: ??ABDON Munoz(ASCP), Stefany Rivera - ? Mending Carrier ? ---Clinical Information--- ? HPV Option: ? No HPV Testing ? Preparation: ?Liquid Based Pap ? Specimen Source: ?Vaginal only/LBP/Diagnostic ? LMP: ?Post menopausal, hx bladder cancer, new posterior ? wall bladder lesion ? Hormones?: ?No ? Hysterectomy?: ?Total Hysterectomy ?: ?No ?: ?No ? I.U.D.?: ?No ? Pelvic Radiation: ? No ? Prior WELT STITCH CLEANER Therapy?: ? No ? Hist Abnl Pap/Biopsy?: [...] ??For further ? information please contact the [facility] Laboratory. ? Reference: ??Gunjan AMBRIZ. ??Applications Systems Engineer of Pap Smear Results. ??In: ? Rosy BS, Compa HH, ed. ??The Pap Smear. ??[place]: ??Pino, 2002: ? 71-77. JORY MAYFIELD 07/08/2012 8:27 PM EDT Loulou Benjamin MD PATHOLOGY/C YTOLOGY ORDERABLES JORY MAYFIELD from Last 3 Months or Most Recently Relevant to Health Maintenance Care Teams Orthopedic Nurse Practitioner Relationship Specialty Start Date End Date Aysha Johnson MD [address] [place] [address] PCP - General Family Medicine 12/12/23
--- OUTSIDE RECORDS SUMMARY | 2024-04-16 15:38 | XMS_ITS | Encounter Summary ---
Author Organization [place] [address] Care Team Providers Care Ammunition Specialist Name Role Phone Aysha Johnson MD Primary Care Provider [phone] Encounter Details Date Type Department Care Team (Late st Contact Info) Description 01/06/2024 Telephone Cardiology at [address] [phone] Katelynn Fan, RN Social History Tobacco Use Types Packs/Day Years Used Date Smoking Tobacco: Never Smokeless Tobacco: Never Alcohol Use Standard Drinks/Week Comments Yes 0 (1 standard drink = 0.6 oz pur e alcohol) once per year [facility] Inpatient Questions Answer Date Recorded Does Anyone [...] Katelynn Fan RN, BSN Ambulatory Cardiology Clinic, [facility] [phone] * Telephone Encounter - Katelynn Fan RN [...] Katelynn Fan RN, BSN Ambulatory Cardiology Clinic, [facility] [phone] documented in this encounter Plan of Treatment Upcoming Encounters Date Type Department Care Team (Late st Contact Info) Description 04/28/2024 11:00 AM EST App[place] [address] Molly Cui, [facility] [place] [address] 04/28/2024 2:00 PM EST Office [place] [phone] Molly Cui, [facility] [place] [address] documented as of this encounter Visit Diagnoses Not on filedocumented in this encounter Care Teams Ammunition Specialist Relationship Specialty Start Date End Date Aysha Johnson MD [address] [place] [address] PCP - General Family Medicine 12/12/23 documented as of this encounter
--- OUTSIDE RECORDS SUMMARY | 2024-04-16 15:38 | XMS_ITS | Encounter Summary ---
Author Organization [facility] [place] [address] Care Team Providers Care Rn Transfer Name Role Phone Aysha Johnson MD Primary Care Provider [phone] Encounter Details Date Type Department Care Team [...] 04/28/2024 11:00 AM [place] [address] Molly Cui APRN [facility] [place] [address] 04/28/2024 2:00 PM EST Office [place] [phone] Molly Cui APRN [facility] [place] [address] documented as of this encounter Visit Diagnoses Not on filedocumented in this encounter Care Teams Rn Transfer Relationship Specialty Start Date End Date Aysha Johnson MD [address] [place] [address] PCP - General Family Medicine 12/12/23 documented as of this encounter
--- OUTSIDE RECORDS SUMMARY | 2024-04-16 15:38 | XMS_ITS | Encounter Summary ---
Author Organization [facility] Address [facility] [address] Care Team Providers Care Director Of Cardiac Rehabilitation Name Role Phone Aysha Johnson MD Primary Care Provider [phone] Reason for Visit * Reason Comments Medication Refill Encounter Details Date Type Department Care Team (Late st Contact Info) Description 01/20/2024 Ref[place] [phone] Molly Cui [facility] [place] [address] Gastroesophageal reflux disease without esophagitis Social History Tobacco Use Types Packs/Day Years Used Date Smoking Tobacco: Never Smokeless Tobacco: Never Alcohol Use Standard Drinks/Week Comments Yes 0 (1 standard drink = 0.6 oz pur e alcohol) once per year [facility] Inpatient Questions Answer Date Recorded Does Anyone [...] 04/28/2024 11:00 AM EST [place] [phone] Molly Cui [facility] [place] [address] 04/28/2024 2:00 PM EST Office [place] [address] Molly Cui APRN [facility] [place] [address] documented as of this encounter Visit Diagnoses Diagnosis Gastroesophageal reflux disease without esophagitis Esophageal reflux documented in this encounter Care Teams Director Of Cardiac Rehabilitation Relationship Specialty Start Date End Date Aysha Johnson MD [address] [address] PCP - General Family Medicine 12/12/23 documented as of this encounter
--- OUTSIDE RECORDS SUMMARY | 2024-04-16 15:38 | XMS_ITS | Encounter Summary ---
Author Organization [facility] Address [facility] [place] [address] Care Team Providers Care Hose Mender Name Role Phone Aysha Johnson MD Primary Care Provider [phone] Reason for Referral * Consultation (Routine) - Authorized Specialty Diagnoses / Procedures Referred By Jose bermudez Referred To Contact Gastroenterology Diagnoses NAFLD (nonalcoholic fatty liver disease) chest pain dueto esopageal disease.NACL Yonathan Gibson MD [facility] [place] [address] Molly Cui, INDUSTRIAL ENGINEERING TECHNOLOGIST [address] [facility] [place] [address] Referral ID Status Reason Start Date Expiration Date Visits Requested Visits Authorized [id number] Authorized Consult, Test & Treat 12/27/2023 12/26/2024 1 1 Encounter Details Date Type Department Care Team (Late st Contact Info) Description 12/27/2023 11:00 AM EDT Office Visit Cardiology at [address] [phone] Yonathan Gibson MD [facility] [place] [address] NAFLD (nonalcoholic fatty liver disease) Social History [...] included. Came in for follow-up with history [facility] [place] [address] CARDIOLOGY OUTPATIENT PROGRESS NOTE PRIMARY CARE PROVIDER: Aysha Johnson MD REFERRING PROVIDER: Aysha Johnson PROBLEM LIST: Patient Active Problem List Diagnosis Hepatic cirrhosis Added automatically from request for surgery [id number] NAFLD (nonalcoholic fatty liver disease) Mixed incontinence Bladder cancer S/P hysterectomy Vaginal lesion MEDICATIONS: Current Outpatient Medications Medication Sig Dispense Refill nitroGLYcerin (Nitrostat) 0.[address] 1 tablet under the tongue every 5 minutes as needed for Chest pain. 25 tablet 12 isosorbide mononitrate CR (Imdur) 30 mg ER 24 hr tablet Take 30 mg by mouth 2 times daily. wqwuhnktjx-fsyxocp-uigoqjja (Fiorinal) 50-325-40 mg tablet Take 1 tablet [...] as directed. fluticasone propionate (FLONASE) 50 mcg/actuation [place], Suspension 1 spray daily. pramipexole (MIRAPEX) 0.125 [...] on file Social History Narrative Lives in [place], [place] with her of 10 years. She [...] Abdomen: Nondistended. Soft. Nontender. Extremities: No edema. HYDRAULIC BILLET MAKER: Normal mentation. Psych: Appropriate affect. Labs: Lab [...] 04/28/2024 11:00 AM EST [place] [address] Molly Cui, [facility] [place] [address] 04/28/2024 2:00 PM EST Office [place] [phone] Molly Cui [facility] [place] [address] Scheduled Referrals Name Type Priority Associated Diagnoses Order Schedule Referral to Gastroenterology Outpatient Referral Routine NAFLD (nonalcoholic fatty liver disease) Ordered: 12/27/2023 documented as of this encounter Visit Diagnoses Diagnosis NAFLD (nonalcoholic fatty liver disease) Other chronic nonalcoholic liver disease documented in this encounter Care Teams Hose Mender Relationship Specialty Start Date End Date Aysha Johnson MD [address] [place] [address] PCP - General Family Medicine 12/12/23 documented as of this encounter
--- OUTSIDE RECORDS SUMMARY | 2024-04-16 15:38 | XMS_ITS | Encounter Summary ---
Author Organization [facility] Address [facility] [place] [address] Care Team Providers Care Receiving Coordinator Name Role Phone Aysha Johnson MD Primary Care Provider [phone] Encounter Details Date Type Department Care Team (Latest Contact Info) Description 12/20/2023 9:41 AM EDT - 12/20/2023 9:43 AM EDT Hospital Encounter [place] [phone] Rebeka Orosco MD [facility] [place] [address] Chest pain on breathing Discharge Disposition: Home [...] type, unspecified whether angina present, unspecified whether swinom[place] or transplanted heart Place 1 tablet under the tongue every 5 minutes as needed for Chest pain. 25 tablet 12 12/13/2023 ranolazine ER (Ranexa) 500 mg ER 12 hr tabletIndications:Luis nary artery disease, unspecified vessel or lesion type, unspecified whether angina present, unspecified whether sw[place]omish or transplanted heart Take 1 tablet by mouth 2 times daily. 60 tablet 12/13/2023 isosorbide mononitrate CR (Imdur) 30 mg ER 24 hr tablet Take 30 mg by mouth 2 times daily. wuqsurredo-fybecsm-dkb feine (Fiorinal) 50-325-40 mg tablet Take 1 [...] directed. 05/02/2020 fluticasone propionate (FLONASE) 50 mcg/actuation [place], Suspension 1 spray daily. pramipexole (MIRAPEX) 0.125 [...] 11:00 AM EST Appointment [place] [phone] Molly Cui APRN [facility] [place] [address] 04/28/2024 2:00 PM EST Office [place] [address] Molly Cui APRN [facility] [place] [address] documented as of this encounter Procedures Procedure [...] respiration documented in this encounter Care Teams Receiving Coordinator Relationship Specialty Start Date End Date Aysha Johnson MD [address] [place] [address] PCP - General Family Medicine 12/12/23 documented as of this encounter
--- OUTSIDE RECORDS SUMMARY | 2024-04-16 15:38 | XMS_ITS | Continuity of Care Document ---
Author Organization [facility], [facility] Address [address] [place] [address] Care Team Providers Care Full Fashioned Garment Knitter Name Role Phone CRYSTAL MCCORMACK Digital Forensics Examiner ALNI WALLIS Religion Instructor Assessment Encounter Date Assessment Date Assessment LastModified by Organization Details LastModified Time 03/04/2024 03/04/2024 Chronic Loose Stools - Assessment: Patient experiencing chronic loose stools. - Plan: a. Reduce metformin to one tablet twice a day to assess improvement in diarrhea. b. If diarrhea resolves, consider alternative medications for blood sugar control. c. If diarrhea persists, return to two tablets twice a day. Diabetes Mellitus - Assessment: A1c increased from 6.6 to 7.3. - Plan: a. Continue Victoza, metformin, and monitor blood sugar levels. b. Consider alternative medications if metformin reduction is needed due to diarrhea. Lower Extremity Edema and Heart Failure with Preserved Ejection Fraction - Assessment: Patient has lower extremity edema and heart failure with preserved ejection fraction. - Plan: a. Encourage daily torsemide use. b. [facility] to ensure the patient does not run out. c. Continue monitoring weight and edema. Atypical Chest Pain - Assessment: Negative stress test. - Plan: a. Discontinue long-term anti-anginal medication. b. Encourage follow-up with document preparer microfilming if symptoms persist or worsen. Cirrhosis with Thrombocytopenia - Assessment: Patient has cirrhosis with thrombocytopenia. - Plan: Continue monitoring liver function and platelet count. Manage complications as needed. Insomnia - Assessment: Patient reports insomnia. - Plan: Assess potential causes and consider non-pharmacologica l interventions for sleep improvement. Chronic Cough - Assessment: Patient reports a chronic cough. - Plan: a. Encourage deep breathing exercises and use of an incentive spirometer. b. Consider chest x-ray if symptoms persist or worsen. c. Recommend Mucinex for cough relief. Acid Stomach - Assessment: Patient experiences acid stomach. - Plan: a. Optimize omeprazole use by taking on an empty stomach. b. Continue liquid antacid as needed for short-term relief. c. Monitor for improvement and consider alternative treatments if symptoms persist. Medication Management - Plan: Coordinate with care team and pharmacy to ensure bubble packing of medications and timely refills. The total time devoted to today's encounter, including both the wokt-yb-lmsh time with the patient and/or family/caregiver and wdw-zjcq-bf-face time I personally spent is 45 minutes. [email or web address] Not available 03/06/2024 11:29:18 Plan of Treatment Reminders Order Date Submit Date Provider Last Modified By Organization Details Last Modified Time Details Appointments Follow Up 2024 01:20P M RUPAL BARILLAS Not available Not available Not available Lab hemoglobi n A1C, fingersti ck 2023 [email or web address] [facility], [address] [place] [address], [place], [address], 03/06/2024 07:43:32 Referral None recorded. Procedures None recorded. Surgeries None recorded. Imaging None recorded. Medication Orders torsemide 10 mg tablet 2023 [employer] [id number], [place], [address], 03/19/2024 13:54:33 Patient TargetsNo targets recorded. Patient Instructions Encounter Date Encounter Id Patient Instructions Last Modified By Organization Details Last Modified Time 03/04/2024 [id number] Dear Milka, Thank you for visiting us today. We appreciate your commitment to managing your health and are here to support you in improving your well-being. Here is a summary of the palomo instructions from today's consultation: - Medications: - Continue taking Torsemide daily. A short-term refill will be sent to [facility] to ensure you do not run out. - Adjust Metformin dosage to one tablet twice a day to see if it helps reduce diarrhea. Monitor the effect and report back. - Victoza has been causing nausea and hunger pains; continue with the lowest dose that does not cause nausea. - Take omeprazole on an empty stomach to improve its effectiveness. - Lifestyle Adjustments: - Practice deep breathing exercises or use an incentive spirometer to help clear your lungs. - Monitor your diet to avoid foods that aggravate your acid stomach, such as salad with olive oil and vinegar. Please ensure to follow these instructions carefully and do not hesitate to contact us if you have any questions or need further assistance. We look forward to seeing you at your next appointment. Warm regards, Rupal Barillas MD Family Medicine [email or web address] Not available 03/04/2024 14:33:52 Reason for Referral None Reported. Results Created Date Observation Date Name Description Value Unit Range Abnormal Flag Note LastModifiedBy Organization Detail LastModifiedTime 03/04/20 24 03/04/2024 hemog lobin A1C, finge rstic k hemoglobin A1C 7.3 % <5.7 Not Available [address], [place], [address], 03/04/2024 14:21:18 03/17/20 24 03/17/2024 xr chest 2V Pa and later al [facility] RADIOL OGY [place] [id number] RADIOL OGY TRANSC RIPTIO N REPORT _ Patien t Name: CRISTEL SEGUNDO MRN: Sex: : Age: [id number] F [id number] Accoun t: Access ion: Admit: StayTy pe: [id number] 2023 Aylin Castellon d: Order ID: Submit nate: David Klein er: 2023 16:03 02250 Zoey MOSLEY nate: Techno logist : Result [...] If you are a health care [facility] er and have any questi ons regard ing this report , please contac t the number below. For patien ts who have questi ons please contac t the health care [facility] that reques nate your imagin g first. Electr onical ly signed by: Kimberly Keith MD Radiol sohan ji ([phone]), at 2023 4:28 PM INTERFACE [facility] (Lab) [address] [place], [address], 03/17/2024 16:35:27 03/17/20 24 03/17/2024 EKG order yony ng 12 lead [facility] [place] [id number] EKG TRANSC RIPTIO N REPORT _ Accoun t: Access ion: Admit: StayTy pe: [id number] 2023 E/R Observ ation: Order ID: Submit nate: David aly Provid er: 2023 16:34 [id number] KURT KIN AYALA _ [place] [id number] [facility] Test Date: 2023-04 Pat Name: KAYLEE Khan Depart ment: Brice bermudez ID: [id number] Room: Gender : Yue Reardon perri: jr : 1941-0 3- Reques nate By: CAROLYNSE Mcdermott KEYANA Yanes Order Number : [id number] Kelby [email or web address] MD: Jung Corona Measur ements Interv als [place] Rate: 109 P: 57 [place]: 182 QRS: -22 QRSD: 92 T: 0 QT: 328 QTc: 441 Interp retive Statem ents Sinus tachyc ardia Poor R wave progre ssion, likely due to lead placem ent Compar ed to ECG 2023 09:24: 01 Sinus rhythm no longer presen t Electr onical ly Signed On 2023 19:33: 53 EST by Jung Corona INTERFACE [facility] (Lab) [address] [place] [address], [address], 03/17/2024 19:35:41 Result Notes None recorded. Problems Name Problem SNOMED Code Status Onset Date Resolution Date Notes Provider Name and Address Organization Details Recorded Time Acute lower respirat ory tract infectio n 877577537 Completed 202303/27/2024 RUPAL BARILLAS MD [address], [place] [address] , [facility] 4 14:21:53 Acute confusio n 176337182 Completed 202303/27/[address], [address] 4 14:21:53 Mild intermit tent asthma 855404421 Active [address], [address] 4 15:28:45 Chronic cough 85982938 Active [address], [address] 5 14:11:35 Dysuria 33788286 Active 2024 Problem Code: R30.0; Problem Code Type: ICD-10; MD Livan RODR[address]UEZ Dr, [place] [address] , [facility] 5 14:40:58 Dry lips 096966189 Active [address], [address] 5 15:15:20 Loose stool 655917151 Active [address], [place] [address] , [facility] 5 15:16:13 Encopres is 780387797 Active [address], [address] 5 15:16:22 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 684452691 Active [address], [place], [address] [address] 5 15:16:36 Shannon ramosen eugene 36888825 Completed 201305/13/2023 Problem Code: I10; Problem Code Type: ICD-10; MD Livan RODR[address]UEZ Dr, [place] [id number] [place] [address] 4 13:45:04 Migraine 34146942 Active 2013 Gail rodriguez, [facility] 4 12:45:27 History of disorder of digestiv e system 559791944 Completed 201305/13/2023 Problem Code: Z87.19; Problem Code Type: ICD-10; MD Livan RODRIGUEZ Dr, [address] 4 13:45:04 Restless legs 40125512 Active 2013 Gail rodriguez, [facility] 4 12:48:18 Disorder of nervous system due to type 2 diabetes mellitus 511788212 Completed 201305/13/2023 04/27/19 20 - Comments only [...] Code Type: ICD-10; MD Livan RODRIGUEZ Dr, [place] [id number] 4 13:45:04 Allergic rhinitis 34670394 Completed 201305/13/2023 Problem Code: J30.9; Problem Code Type: ICD-10; MD Livan RODRIGUEZ Dr, [facility] [address] , [facility] 4 13:45:04 Mixed hyperlip idemia 714891136 Active 2013 Gail Lavern [facility] 4 12:45:48 Neuropat hy due to type 2 diabetes mellitus 02968759617 9106 [facility] 2013 [facility] 4 12:46:16 Intolera nce to lactose 838842418 Completed 201305/13/2023 Problem Code: E73.9; Problem Code Type: ICD-10; MD Livan RODRIGUEZ Dr, [facility] [address] , [facility] 4 13:45:04 Heart murmur 24214573 Active [address], [facility] [address] , [facility] 4 06:52:52 History of malignan t neoplasm of bladder 327476239 Active 2013, recurren ce 2008, Dr. Boykin, chemo instilla tion, straight caths [facility] 4 12:43:10 History of nutritio nal disorder 833149873 Completed 201405/13/[address], [facility] [address] , [facility] 4 13:45:04 Irritabl e bowel syndrome 90620951 Active 2014 [facility] 4 12:45:06 Eczema 91976896 Active 2014 [facility] 4 12:38:10 Hernia of abdomina l cavity 12640253 Active [facility] 4 12:41:15 Cirrhosi s of liver 73960537 Completed 201505/13/2023 09/22/19 20 - Comments only - Nat Bryant M.D. - Has gained some weight, and possibly has ascites, although I have never examined her before. Follow-u p as planned tomorrow for imaging, labs, [facility] at [facility]. Problem Code: K74.69; Problem Code Type: ICD-10; MD Livan R[address], [place], [address] , [facility] 13:45:04 History of urinary tract infectio n 23499235472 07 Completed 201505/13/2023 08/03/19 16 - Comments [...] Code Type: ICD-10; MD Livan RODR[address] Dr, [place], [address] , [facility] 4 13:45:04 Screenin g for malignan t neoplasm of breast Completed 201505/13/2023 Problem Code: Z12.39; Problem Code Type: ICD-10; MD Livan R[address] Dr, [place], [address] , [facility] 13:45:04 Candidia sis of vagina 91029771 Completed 201505/13/2023 Problem Code: B37.3; Problem Code Type: ICD-10; MD Livan RODRIGUEZ Dr, [facility] [address] [place] [address] 4 13:45:04 Portal hyperten eugene 46158667 Active 2015 no ascites or encephal opathy, EGD 2015 (gastric ulcer) Gailmami Puckett [facility] 4 12:47:45 Genitour inary symptoms 852717774 Completed 201504/17/2016 Problem Code: R39.89; Problem Code Type: ICD-10; Not Available [facility] 3 04:10:10 Screenin g for malignan t neoplasm of colon Completed 201605/13/2023 Problem Code: Z12.11; Problem Code Type: ICD-10; MD Livan RODRIGUEZ Dr, [facility] [address] , [facility] 4 13:45:04 Pneumoni a 489497136 Completed 201602/15/2017 02/12/20 17 - Improved - 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 PUMPER GAGER APPRENTICE - s/p tx with azithrom ycin pt signific antly improved RTC if sx worsen/p ersist Problem Code: J18.9; Problem Code Type: ICD-10; MD Livan RODRIGUEZ Dr, [facility] [address] [place] [address] 4 14:21:53 Orthosta tic hypotens ion 53299988 Active 2017 [facility] 4 12:46:41 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 Active 2018 small endoscop y 2019 [facility] repeat one year [facility] 4 12:39:42 Hepatic failure 55010960 Completed 201805/13/2023 Problem Code: K72.90; Problem Code Type: ICD-10; MD Livan RODRIGUEZ Dr, [facility] [address] , [facility] 4 13:45:04 Acute upper respirat ory infectio n 39111069 Completed 201811/08/2018 Problem Code: J06.9; Problem Code Type: ICD-10; MD Livan RODRIGUE[address] Dr, [facility] [address] , [facility] 4 13:45:04 Proteinu vinod 32736586 Completed 201805/13/2023 Problem Code: R80.9; Problem Code Type: ICD-10; MD Livan RODRIGUEZ Dr, [facility] [address] [place] [address] 4 13:45:04 Hyperlip idemia 81796677 Active 2018 [facility] 4 12:44:49 Gastroes ophageal reflux disease without esophagi tis 514855284 Active 2019 [place] La[facility] 4 12:39:54 Urinary tract infectio us disease 91053376 Completed 201909/29/2019 09/22/19 20 - Comments only [...] N39.0; Problem Code Type: ICD-10; Not Available [facility] 3 04:10:12 Nervous system and sense organ diseases 484182581 Completed 202005/13/[address], [facility] [address] , [facility] 4 13:45:04 Fall on or from stairs or steps Completed 202005/27/2020 Problem Code: W10.9xxA ; Problem Code Type: ICD-10; Not Available [facility] 3 04:10:12 Knee joint effusion 629320640 Completed 202006/06/2020 Problem Code: M25.469; Problem Code Type: ICD-10; Not Available [facility] 3 04:10:13 Low back pain 943219944 Completed 202006/20/2020 Problem Code: M54.5; Problem Code Type: ICD-10; INDIRA YEN [address], [address] 4 14:31:55 Dysuria 83022149 Completed 202009/03/2020 Problem Code: R30.0; Problem Code Type: ICD-10; RUPAL BARILLAS MD [address], [address] 5 14:40:58 Psychoph ysiologi c insomnia 623623960 Active 2020 Insomnia , chronic Gail Lavern [facility] 4 12:48:07 Dizzines s and giddines s 116490273 Completed 202010/31/2020 Problem Code: R42; Problem Code Type: ICD-10; Not Available [facility] 3 04:10:14 Atrophic vaginiti s 34822161 Active 2020 Gail Lavern null, [facility] 4 12:37:19 Urinary tract infectio us disease 33009429 Completed 202003/03/2021 Problem Code: N39.0; Problem Code Type: ICD-10; Not Available [facility] 3 04:10:14 Disorder of hematopo ietic structur e 839392077 Completed 202105/13/2023 Problem Code: D75.89; Problem Code Type: ICD-10; MD Livan RODRIGUE[address] Dr, [facility] [address] , [facility] 4 13:45:04 Tension- type headache 781788715 Completed 202105/13/2023 Problem Code: G44.209; Problem Code Type: ICD-10; RUPAL BARILLAS MD [address], [facility] [address] [place] [address] 4 13:45:04 Acute conjunct ivitis of left eye 41939989197 9105 Completed 202112/19/2021 12/13/19 22 - Comments only - Nat Bryant M.D. - Likely bacteria l. Rx sent for e-mycin ointment . Call for reevalua tion if worsenin g, or no better w/in 48 hours. Problem Code: H10.32; Problem Code Type: ICD-10; Not Available [facility] 3 04:10:15 Cerebrov ascular disease 36750895 Active 2021 [facility] 4 12:37:49 Urinary tract infectio us disease 87536573 Completed 202208/28/2022 Problem Code: N39.0; Problem Code Type: ICD-10; Not Available [facility] 3 04:10:15 Pneumoni a 799183862 Completed 202211/08/2022 10/30/19 23 - Improved - [...] ICD-10; MD Livan RODRIGUEZ Dr, [facility] [address] , [facility] 4 14:21:53 Edema 365096674 Active 2022 Peripher al edema [facility] 4 12:38:42 Castillo' s esophagu s 037580039 Active 2022 [facility] 4 12:37:33 Candidia sis of skin 10169090 Completed 201810/23/2022 Problem Code: B37.2; Problem Code Type: ICD-10; Not Available [facility] 3 04:10:16 Acute atopic conjunct ivitis 71812021 Completed 201804/21/2019 Problem Code: H10.10; Problem Code Type: ICD-10; Not Available [facility] 3 04:10:16 Constipa tion 47445959 Completed 201301/02/2023 Problem Code: K59.00; Problem Code Type: ICD-10; Not Available [facility] 3 04:10:16 Cough 83947791 Completed 202201/02/2023 Problem Code: R05.8; Problem Code Type: ICD-10; RUPAL BARILLAS MD [address], [place], [address] [facility] 4 14:21:53 Hyperten sive disorder 90197118 Completed 201301/02/2023 Not Available [facility] 3 04:10:17 Neoplasm of urinary bladder 412470712 Completed 201301/02/2023 Problem Code: D49.4; Problem Code Type: ICD-10; Not Available [facility] 3 04:10:17 Enthesop athy 54142450 Completed 201812/26/2020 Problem Code: M77.9; Problem Code Type: ICD-10; Not Available [facility] 3 04:10:17 Hypercal cemia 85785131 Completed 201401/02/2023 Not Available [facility] 3 04:10:18 Lung field abnormal 307429999 Completed 201607/29/2017 Problem Code: R91.8; Problem Code Type: ICD-10; Not Available [facility] 3 04:10:18 Insomnia 478698109 Completed 201906/06/2021 Problem Code: F51.09; Problem Code Type: ICD-10; Not Available [facility] 3 04:10:18 Disorder of lung 52835443 Completed 201710/23/2022 Problem Code: J98.4; Problem Code Type: ICD-10; Not Available [facility] 3 04:10:18 Type 2 diabetes mellitus without complica tion 553692269 Completed 201301/02/2023 Problem Code: E11.9; Problem Code Type: ICD-10; IN[address], [place], [address] , [facility] 4 15:17:00 Pain of left shoulder joint 24540846295 585201 Completed 201406/06/2021 Problem Code: M25.512; Problem Code Type: ICD-10; Not Available [facility] 3 04:10:19 Screenin g for osteopor osis Completed 201602/11/2017 Problem Code: Z13.820; Problem Code Type: ICD-10; Not Available [facility] 3 04:10:19 Inflamed seborrhe ic keratosi s 736209465 Completed 201910/23/2022 Problem Code: L82.0; Problem Code Type: ICD-10; Not Available [facility] 3 04:10:20 Disorder of brain 98901766 Completed 202103/05/2022 Problem Code: G93.40; Problem Code Type: ICD-10; Not Available [facility] 3 04:10:20 Other idiopath ic peripher al neuropat hy NOS Completed 201301/02/2023 Not Available [facility] 3 04:10:20 Obesity 969663672 Completed 201301/02/2023 Not Available [facility] 3 04:10:20 Fatigue 46409435 Completed 201810/27/2018 Problem Code: R53.83; Problem Code Type: ICD-10; Not Available [facility] 3 04:10:21 Genitour inary symptoms 239531393 Completed 201904/04/2020 Problem Code: R39.9; Problem Code Type: ICD-10; Not Available [facility] 3 04:10:21 Benign paroxysm al position al vertigo 342701920 Completed 202001/02/2023 Problem Code: H81.10; Problem Code Type: ICD-10; Not Available [facility] 3 04:10:22 Disorder of skin and/or subcutan eous tissue 27718768 Completed 201904/04/2020 Problem Code: L98.9; Problem Code Type: ICD-10; Not Available [facility] 3 04:10:22 Osteophy te of bone 78456805258 9100 Completed 201906/28/2020 Problem Code: M25.776; Problem Code Type: ICD-10; Not Available [facility] 3 04:10:22 Gastric ulcer 876198383 Completed 201501/02/2023 Problem Code: K25.9; Problem Code Type: ICD-10; Not Available [facility] 3 04:10:22 Right side sciatica 02481461027 9101 Completed 201804/21/2019 Problem Code: M54.31; Problem Code Type: ICD-10; Not Available [facility] 3 04:10:23 Candidia sis 18462904 Completed 201308/22/2015 Problem Code: B37.9; Problem Code Type: ICD-10; Not Available [facility] 3 04:10:23 Steatosi s of liver 402416462 Completed 201302/10/2016 Problem Code: K76.0; Problem Code Type: ICD-10; Not Available [facility] 3 04:10:23 Cough 44836378 Completed 201912/26/2020 Problem Code: R05; Problem Code Type: ICD-10; MD Livan RODRIGUEZ Dr, [facility] [address] , [facility] 4 14:21:53 Xerostom ia 14177685 Completed 202006/06/2021 Problem Code: R68.2; Problem Code Type: ICD-10; Gail rodriguez, [facility] 4 12:49:03 Candidal vulvovag initis 60030117 Completed 201301/02/2023 Problem Code: 112.1; Problem Code Type: ICD-9; Not Available [facility] 3 04:10:25 Intestin al disaccha ridase deficien cy 98737717 Completed 201301/02/2023 Problem Code: 271.3; Problem Code Type: ICD-9; Not Available [facility] 3 04:10:25 Acute bronchit is 79343589 Completed 201912/26/2020 Problem Code: J20.9; Problem Code Type: ICD-10; Not Available [facility] 3 04:10:26 Peripher al nerve disease 932313307 Completed 201301/02/2023 Not Available [facility] 3 04:10:26 Acute upper respirat ory infectio n 21572171 Completed 202205/13/2023 Problem Code: J06.9; Problem Code Type: ICD-10; MD Livan RODR[address]UEZ Dr, [facility] [address] , [facility] 4 13:45:04 Diastoli c heart failure 345099869 Active 2022 echo 03/[address], [facility] [address] [facility] 3 11:17:46 Chest pain 45659135 Completed 202205/13/2023 Problem Code: R07.89; Problem Code Type: ICD-10; MD Livan RODR[address]UE[address] Dr, [place] [address] , [facility] 4 13:45:03 Aortic stenosis , non-rheu matic 858391016 Active 2022 mild 03/2023 echo MD Livan [address] Dr, [place] [address] , [facility] 06:52:21 Senile hyperker atosis 505805812 Completed 202205/13/2023 Problem Code: L82.1; Problem Code Type: ICD-10; MD Livan RODRIGUEZ Dr, [address] 13:45:03 Melanocy tic nevus 844513298 Completed 202205/13/2023 Problem Code: D22.9; Problem Code Type: ICD-10; MD Livan RODRIGUEZ Dr, [address] 4 13:45:04 Incoordi nation 325505519 Completed 202205/13/2023 01/31/20 23 - Comments only - Rupal Barillas MD - neuro exam not c/w CVA; will eval further at next visit. Problem Code: R27.9; Problem Code Type: ICD-10; MD Livan RODR[address]UE[address] Dr, [place] [address] , [facility] 4 13:45:03 Dyspnea 348831172 Completed 202205/13/2023 Problem Code: R06.09; Problem Code Type: ICD-10; MD Livan RODRIGUEZ Dr, [address] 4 13:45:03 Chronic diarrhea 497024497 Active 2023 Gail rodriguez, [facility] 12:37:57 Drug-ind uced xerostom ia 311487296 Active [address], [place], [address] , [facility] 13:38:38 Microalb uminuric diabetic nephropa thy 115095900 Active 2023 [facility], [facility] 4 12:45:11 Dyspnea on exertion 39884757 Active 2023 [facility], [facility] 12:37:57 Angular cheiliti s 487363084 Active 2023 [facility], [facility] 12:36:56 Xerostom ia 41233994 Active 2023 [facility] 12:49:03 History of adenomat ous polyp of colon 994129906 Active 2020 [facility], [facility] 12:43:44 Sialoade nitis 43112971 Completed 202308/09/[address], [place], [address] , [facility] [facility] 16:48:36 Low back pain 437403429 Active 2023 Problem Code: M54.5; Problem Code Type: ICD-10; AMADEO VICTORINO, CULINARY SPECIALIST [address], [place], [address] , [facility] 14:31:55 Chest pain on exertion 51319385 Active [address], [place], [address] , [facility] 4 12:24:41 Always hungry 140695046 Active [address], [address] [place] [address] 4 16:38:32 Altered bowel function 29335111 Active [address], [address] 4 16:38:44 Atypical chest pain 844453994 Active 2023 DORIS JONES MA null, [facility] 4 07:31:04 Acquired thromboc ytopenia 84239814 Active [address], [address] 4 09:56:08 Actinic keratosi s 643530755 Active [address], [address] 4 13:34:57 Nodule of lung 377283987 Active 2023 probable lipoma by PET. (benign) MD Livan R[address]UE[address] Dr, [address] 4 06:49:28 Minimal cognitiv e impairme nt 478980238 Active [address], [address] 4 15:05:52 New daily persiste nt headache 67032961736 9105 Active [address], [address] 4 16:29:33 Lichen sclerosu s of vulva 956856076 Active [address], [place], [address] , [facility] 4 15:22:25 Milia 425798996 Active [address], [facility] [address] , [facility] 15:51:39 Obstruct keshia sleep apnea syndrome 09804658 Active 2023 DORIS JONES MA null, [facility] 09:39:29 Atherosc lerosis Active 2023 DORIS JONES MA null, [facility] 4 09:39:44 Cirrhosi s - non-alco holic 389045604 Active 2023 with esoph varices and low PLT but no ascites, jaundice or sx. MD [address]ivan [address], [place], [address] , [facility] 4 06:56:02 Vulvitis 29238366 Active [address], [facility] [address] , [facility] 4 13:20:01 Thromboc ytopenic disorder 357403863 Active [address], [facility] [address] , [facility] 4 13:23:28 Decompen sated cirrhosi s of liver 567147205 Active [address], [place], [address] , [facility] 4 14:23:47 Type 2 diabetes mellitus without complica tion 727086051 Active 2023 Problem Code: E11.9; Problem Code Type: ICD-10; INDIR[address], [place], [address] , [facility] 15:17:00 Coronary arterios clerosis 06127574 Active 2023 DORIS JONES MA null, [facility] 12:31:32 Hyperpig mentatio n of skin 76267365 Active [address], [facility] [address] , [facility] 15:19:42 Pneumoni a 091241110 Completed 202303/27/2024 10/30/19 23 - Improved - [...] Code Type: ICD-10; MD [address]ivan [address], [place], [address] , [facility] 14:21:53 Cough 62627032 Completed 202303/27/2024 Problem Code: R05.8; Problem Code Type: ICD-10; MD [address]ivan [address], [place], [address] , [facility] 14:21:53 Notes:Some problems listed i n Document: #[id number] could not be added to this patient's chart. Please review this document and add these problems to the patient's chart manually as needed. Problem Notes None recorded. Procedures Surgical History Date Name Laterality Status Provider Name and Address Organization Details Recorded Time 4 Cryosurgery Multiple Actinic Keratoses completed MD Livan [address], [place], [address], [facility] 03/06/2024 11:24:31 4 Cryosurgery Warts/Skin Tags completed MD Livan [address], [facility] [address], [facility] 10/18/2023 15:47:48 Cryosurgery Warts/Skin Tags completed MD Livan [address], [facility] [address], [facility] 10/07/2023 13:34:27 Imaging Results None recorded. Procedure Notes None recorded. Medical Equipment None Reported. Allergies Allergen ID Allergen Name Allergen Category Reaction Reaction Severity Criticality Documentation Date Start Date Code Code System Note Provider Name and Address Organization Details Recorded Time 54193 erythromy laura medicatio n other moderate Not available 02/15/20232013 4053 [facility] 12:53:11 43677 Bactrim medicatio n itching moderate Not available 08/01/20232013 28095 9 [facility]chy [facility] 12:51:33 01503 codeine medicatio n itching moderate Not available 08/01/20232013 2670 [facility] 12:52:07 94234 Demerol medicatio n other moderate Not available 08/01/20232013 51407 1 Rx[facility] can' t sleep [facility] 4 12:52:55 06213 simvastat in medicatio n nausea moderate Not available 08/01/20232013 59691 RxNorm (ALLS TATIN S) [facility] 12:53:40 86685 Trulicity medicatio n vomiting moderate low 09/25/2023 68465 96 RxNorm MD Livan [address] Dr, [facility] [address], [facility] 4 12:57:22 Medications Name Sig Start Date [...] a day by oral route. 2023 active [facility] Not Available Not Available Not Avai [...] IF CHEST PAIN STILL PERSISTS CONTACT 911 10/03 /2024 completed Not Available Not Available Not Available [...] 1 tablet every day by oral route. 12/12 /2024 completed brice ji for hypokale morro Not [...] once a day 12/[address] Wallis, [facility], after August 2022 OV Not [...] Relief 50 mcg/actua tion nasal spray,[facility] 1 spray into both nostrils once a [...] Updated DateTime 4 154.94 cm 26.5 kg/m2 20693.9 3 g 96 % 96 % 86 /min 97.4 [degF] 116 mm[Hg] 60 mm[Hg] JAMEY PRETTY MA [facility] 4 14:01:08 Social History Question Answer Notes LastModified by Organizat ion Details LastModified Time Tobacco Smoking Status Never Smoker MARY PRETTY MA [facility] 03/18/2023 15:57:23 Would You Say That, In General, Your Health Is Good [email or web address] Information not available 08/09/2023 How Often Does Anyone, Including Family, Physically Hurt You? Never Information not available 08/09/2023 How Often Does Anyone, Including Family, Insult Or Talk Down To You? Rarely [email or web address] Information no t available 08/09/2023 How Often Does Anyone, Including Family, Threaten You With Harm? Never [email or web address] Information not available 08/09/2023 How Often Does Anyone, Including Family, Scream Or Curse At You? Never [email or web address] Information not available 08/09/2023 Within The Past 12 Months, You Worried That Your Food Would Run Out Before You Got Money To Buy More. Never True [email or web address] Information n ot available 08/09/2023 Within The Past 12 Months, The Food You Bought Just Didn't Last And You Didn't Have Money To Get More. Never True [email or web address] Information not available 08/09/2023 How Hard Is It For You To Pay For The Very Basics Like Food, Housing, Medical Care, And Heating? Would You Say It Is: Somewhat Hard [email or web address] Information not available 08/09/2023 In The Past 12 Months, Has Lack Of Reliable Transportation Kept You From Medical Appointments, Meetings, Work Or From Getting Things Needed For Daily Living? No [email or web address] Information not available 08/09/2023 What Is Your Housing Situation Today? I Have Housing. [email or web address] Information not available 08/09/2023 How Often In The Past Year Have You Used Marijuana (including Smoking, Vaping, Dabbing, Or Edibles)? Never [email or web address] Information not available 08/09/2023 How Often In The Past Year Have You Used Prescription Medications That Were Not Prescribed To You? Never [email or web address] Information not available 08/09/2023 How Often In The Past Year Have You Taken Your Own Prescription Medication More Than The Way It Was Prescribed Or For Different Reasons Than Its Intended Purpose? Never [email or web address] Information not available 08/09/2023 How Often In The Past Year Have You Used Other Drugs (for Example, Heroin, Cocaine, Meth, Salvia, Inhalants)? Never [email or web address] Information not available 08/09/2023 Have You Ever Used IV Drugs? No Information not available 08/09/2023 Date Of Most Recent SBINS 08/09/2023 [email or web address] Information not available 08/09/2023 What Was The Date Of Your Most Recent Tobacco Screening? 10/18/2023 [email or web address] Information n ot available 10/18/2023 Has Tobacco Cessation Counseling Been Provided? No [email or web address] Information not available 10/25/2023 Do You Or Have You Ever Used Any Other Forms Of Tobacco Or Nicotine? No [email or web address] Information not available 03/18/2023 Sex: Female Functional Status None recorded. Mental Status None recorded. Family History Relationship Description Onset Age of this Age Resolved Age Notes LastModified by Organization Details LastModified Time Mother Family history of acute medical disorder [email or web address] Not available 2022 03:54:47 Notes:*Problem: Mother: d. 6 7 , cirrhosis, non ETOH Father: d. [place], acute hepatitis Sisters: x1, cirrhosis, non ETOH, [...] Influenza, high-dose, trivalent, PF 4 completed GIOVANNA ASIF [facility] 01/09/2024 16:25:43 COVID-19, mRNA, LNP-S, PF, mayito-sucrose, 30 mcg/0.3 mL 4 completed GIOVANNA ASIF [facility] 01/09/2024 16:25:43 Td (adult), 2 Lf tetanus toxoid, preservative free, adsorbed 7 completed Not Available [facility] 02/15/2023 05:29:32 Hep A-Hep B 7 completed Not Available [facility] 02/15/2023 05:29:32 Hep A-Hep B 6 completed Not Available [facility] 02/15/2023 05:29:32 Tdap 7 completed Not Available [facility] 02/15/2023 05:29:32 Pneumococcal conjugate PCV 13 7 completed Not Available [facility] 02/15/2023 05:29:32 Td(adult) unspecified formulation 6 completed Not Available [facility] 02/15/2023 05:29:32 Influenza, split virus, trivalent, preservative 6 completed Not Available [facility] 02/15/2023 05:29:32 Influenza, split virus, trivalent, preservative 5 completed Not Available [facility] 02/15/2023 05:29:32 Influenza, split virus, quadrivalent, PF 2 completed Not Available [facility] 02/15/2023 05:29:33 Influenza, split virus, quadrivalent, PF 3 completed Not Available [facility] 02/15/2023 05:29:33 Influenza, split virus, quadrivalent, preservative 7 completed Not Available [facility] 02/15/2023 05:29:33 Influenza, split virus, quadrivalent, preservative 8 completed Not Available [facility] 02/15/2023 05:29:33 Influenza, high-dose, quadrivalent, PF 1 completed Not Available [facility] 02/15/2023 05:29:33 COVID-19, mRNA, LNP-S, PF, 100 mcg/0.5mL dose or 50 mcg/0.25mL dose 1 completed Not Available [facility] 02/15/2023 05:29:33 COVID-19, mRNA, LNP-S, PF, 100 mcg/0.5mL dose or 50 mcg/0.25mL dose 1 completed Not Available [facility] 02/15/2023 05:29:33 COVID-19, mRNA, LNP-S, PF, 100 mcg/0.5mL dose or 50 mcg/0.25mL dose 2 completed Not Available [facility] 02/15/2023 05:29:33 SARS-COV-2 (COVID-19) vaccine, UNSPECIFIED 1 completed Not Available [facility] 02/15/2023 05:29:34 COVID-19, mRNA, LNP-S, bivalent, PF, 30 mcg/0.3 mL dose 3 completed Not Available [facility] 02/15/2023 05:29:34 COVID-19, mRNA, LNP-S, bivalent, PF, 30 mcg/0.3 mL dose 2 completed Not Available [facility] 02/15/2023 05:29:34 pneumococcal polysaccharide PPV23 7 completed Not Available [facility] 02/15/2023 05:29:34 pneumococcal polysaccharide PPV23 5 completed Not Available [facility] 02/15/2023 05:29:34 pneumococcal polysaccharide PPV23 1 completed Not Available [facility] 02/15/2023 05:29:34 Hep B, adult 7 completed Not Available [facility] 02/15/2023 05:29:34 influenza, unspecified formulation 8 completed Not Available [facility] 02/15/2023 05:29:34 influenza, unspecified formulation 4 completed Not Available [facility] 02/15/2023 05:29:34 influenza, unspecified formulation 9 completed Not Available [facility] 02/15/2023 05:29:35 Influenza, high-dose, quadrivalent, PF 3 completed Not Available [facility] 04/19/2023 05:31:38 COVID-19, mRNA, LNP-S, PF, mayito-sucrose, 30 mcg/0.3 mL 3 completed Not Available [facility] 04/19/2023 05:31:38 Past Encounters Encounter ID Performer Location Encounter Start Date Encounter Closed Date Diagnosis/Indication Diagnosis SNOMED-CT Code Diagnosis ICD10 Code Diagnosis Note [id number] JUDITH PEÑA RN [address] [address] 02/05/2024 14:49:21 02/05/2024 15:25:56 Cough 42232857 R05.9 OTC rapid Covid test neg. Pneumonia 870746166 J18. 9 possible, on basis of LLL rales. Patient with allergy to macrolides and sulfa, will treat with doxycyclin e particular ly given prevalence of atypical pneumonia currently. Also recommende d Mucinex to help with thinning secretions . May use albuterol as needed. Reviewed indication s for re-evaluat ion. [id number] RUPAL BARILLAS MD [address] [address] 03/04/2024 13:41:07 03/04/2024 14:36:13 Neuropathy due to type 2 diabetes mellitus 4132824605 24634 E11.40 Actinic keratosis 174906 007 L57.0 L eyelid, treated with cryotherap y today, re-eval at next OV. Decompensa nate cirrhosis of liver 561311866 K74.60 Chronic diarrhea 7829871 09 K52.9 Castillo's esophagus 3029 87243 K22.70 Atypical chest pain 1025 33573 R07.89 Psychophys iologic insomnia 570872255 F51.04 Cough 27900459 R05.9 Health Concerns Section Related Observation LastModified by Organization Detai ls LastModified Time None Recorded Concern Status LastModified by Organization Details LastModified Time None Recorded Payers Encounter Date Sequence Insurance Name Policy Number Policy Lucas Covered Member ID Lucas Member ID Guarantor Name 03/04/2024 1 [id number]/A [place]ANTAGE - PPO) [id number] Milka Corbett [id number] Milka Turner Corbett Notes Date Note Type Note Provider Name and Address Organization Details Recorded Time 03/04/2024 text/html CC: f/u chronic loose stools, lower extremity edema, heart failure, atypical chest pain, and diabetes management Milka, an 83-year-old female, presents for a follow-up visit. She reports a history of chronic loose stools, lower extremity edema, heart failure with preserved ejection fraction, and atypical chest pain. She has cirrhosis with thrombocytopenia and diabetes, with an A1c of 7.3, up from 6.6 in November. The patient has been experiencing difficulty sleeping and nocturia. She has noticed improvement in her ankle swelling since taking torsemide daily for the past couple of weeks. The patient reports feeling hungry all the time and experiencing hunger pains despite taking Victoza. She has tried different doses of Victoza but still feels nauseous and hungry. She has not experimented with adjusting her metformin dosage to address her diarrhea. Milka has a history of acid stomach and takes omeprazole and a liquid antacid like Maalox for relief. Milka has been experiencing a persistent cough since finishing a course of antibiotics a month ago. She denies any signs of pneumonia, such as fever or low oxygen levels. She has crackles at the bases of her lungs, which have improved since her last visit. She uses Mucinex for cough relief. The patient has a spot on her eyelid with small white growths, which she has been cutting off. She also has bruises on her feet from bumping into things. RUPAL BARILLAS MD [address], [place], [address], [facility]. 03/06/2024 11:29:24 OBGyn Episode No OBEpisode recorded.
--- OUTSIDE RECORDS SUMMARY | 2024-04-16 15:38 | XMS_ITS | Encounter Summary ---
Author Organization [facility] [place] [address] Care Team Providers Care Review Specialist Name Role Phone Aysha Johnson MD Primary Care Provider [phone] Encounter Details Date Type Department Care Team [...] 04/28/2024 11:00 AM [place] [address] Molly Cui APRN [facility] [place] [address] 04/28/2024 2:00 PM EST Office [place] [phone] Molly Cui APRN [facility] [place] [address] documented as of this encounter Visit Diagnoses Not on filedocumented in this encounter Care Teams Review Specialist Relationship Specialty Start Date End Date Aysha Johnson MD [address] [place] [address] PCP - General Family Medicine 12/12/23 documented as of this encounter
--- OUTSIDE RECORDS SUMMARY | 2024-04-16 15:38 | XMS_ITS | Continuity of Care Document ---
Author Organization [facility], [facility] Address [address] [place] [address] Care Team Providers Care General Service Technician Name Role Phone CRYSTAL MCCORMACK Deputy Register Of Deeds LANI WALLIS Investment Sales Assistant Assessment Encounter Date Assessment Date Assessment LastModified [...] and mobility after addressing acute respiratory issues. Not available 03/17/2024 15:27:03 Plan of Treatment [...] recorded . Patient TargetsNo targets recorded. Patient Instructions Encounter Date Encounter Id Patient Instructions Last Modified By Organization Details Last Modified Time 03/17/2024 [id number] Date: SatMar 17 2024 Dear [Patient's Name], [...] Best regards, Rupal Barillas MD Family Medicine [email or web address] Not available 03/17/2024 15:22:54 Reason for Referral None Reported. Results Created Date Observation Date Name Description Value Unit Range Abnormal Flag Note LastModifiedBy Organization Detail LastModifiedTime 03/17/20 24 03/17/2024 xr chest 2V Pa and later al [facility] RADIOL OGY [place] [id number] RADIOL OGY TRANSC RIPTIO N REPORT _ Patien t Name: CRISTEL SEGUNDO MRN: Sex: : Age: [id number] F [id number] Accoun t: Access ion: Admit: StayTy pe: [id number] 2023 Aylin Castellon d: Order ID: Submit nate: David Klein er: 2023 16:03 [id number] Zoey MOSLEY nate: Techno logist : Result [...] t. If you are a health care [facility] er and have any questi ons regard ing this report , please contac t the number below. For patien ts who have questi ons please contac t the health care profes sional that reques nate your imagin g first. Electr onical ly signed by: Kimberly Keith MD Radiol sohan ji ([phone]), at 2023 4:28 PM INTERFACE [facility] (Lab) [address] [place] [address], [address], 03/17/2024 16:35:27 03/17/20 24 03/17/2024 EKG order yony ng 12 lead [facility] Semora Collins hermosillo [address] EKG TRANSC RIPROYCE Ji REPORT _ Accoun t: Access ion: Admit: StayTy pe: [id number] 2023 E/R Observ ation: Order ID: Submit nate: David Klein er: 2023 16:34 [id number] KIN BOYLE _ [place] [id number] [facility] Test Date: 2023-04 Pat Name: KAYLEE Khan Depart ment: Brice bermudez ID: [id number] Room: Gender : F Techni perri: jr : 1941-0 06-22 Reques nate By: FRANC Yanes Order Number : [id number] Kelby mcdaniels MD: Jung Corona Measur ements Interv als [place] Rate: 109 P: 57 CT: 182 QRS: -22 QRSD: 92 T: 0 QT: 328 QTc: 441 Interp retive Statem ents Sinus tachyc ardia Poor R wave progre ssion, likely due to lead placem ent Compar ed to ECG 2023 09:24: 01 Sinus rhythm no longer presen t Electr onical ly Signed On 2023 19:33: 53 EST by Jung Corona INTERFACE [facility] (Lab) [address] [place] [address], [address], 03/17/2024 19:35:41 Result Notes None recorded. Problems Name Problem SNOMED Code Status Onset Date Resolution Date Notes Provider Name and Address Organization Details Recorded Time Acute lower respirat ory tract infectio n [id number] Completed 202303/27/[address], [place], [address] , [facility]. 14:21:53 Acute confusio n 293508640 Completed 202303/27/[address], [place] [address] , [facility] 4 14:21:53 Mild intermit tent asthma 503021462 Active [address], [address] 4 15:28:45 Chronic cough 36129041 Active [address], [address] 5 14:11:35 Dysuria 63911457 Active 2024 Problem Code: R30.0; Problem Code Type: ICD-10; MD Livan RODRIGUEZ Dr, [address] 5 14:40:58 Dry lips 075707942 Active [address], [address] 5 15:15:20 Loose stool 628329384 Active [address], [address] 5 15:16:13 Encopres is 240716144 Active [address], [address] 5 15:16:22 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 086062686 Active [address], [address] 5 15:16:36 Essentia l hyperten eugene 55718667 Completed 201305/13/2023 Problem Code: I10; Problem Code Type: ICD-10; MD Livan [address], [place], [address] , [facility] 4 13:45:04 Migraine 74040737 Active 2013 Gail Fregosogrady rodriguez, [facility] 4 12:45:27 History of disorder of digestiv e system 911986062 Completed 201305/13/2023 Problem Code: Z87.19; Problem Code Type: ICD-10; MD Livan R[address], [place], [address] , [facility] 4 13:45:04 Restless legs 26854192 Active 2013 Gail Lavern null, [facility] 12:48:18 Disorder of nervous system due to type 2 diabetes mellitus 002447789 Completed 201305/13/2023 04/27/19 20 - Comments only [...] Code Type: ICD-10; MD Livan R[address], [place], [address] , [facility] 4 13:45:04 Allergic rhinitis 53310753 Completed 201305/13/2023 Problem Code: J30.9; Problem Code Type: ICD-10; MD Livan R[address], [place], [address] , [facility] 4 13:45:04 Mixed hyperlip idemia 538994255 Active 2013 Gail Lavern [facility] 4 12:45:48 Neuropat hy due to type 2 diabetes mellitus 23063411589 9106 Active 2013 Harman Lavern [facility] 4 12:46:16 Intolera nce to lactose 140057260 Completed 201305/13/2023 Problem Code: E73.9; Problem Code Type: ICD-10; MD Livan [address], [place], [address] , [facility] 4 13:45:04 Heart murmur 40976718 Active [address], [place], [address] , [facility] 4 06:52:52 History of malignan t neoplasm of bladder 445317252 Active 2013, recurren ce 2008, Dr. Boykin, chemo instilla tion, straight caths [facility] 4 12:43:10 History of nutritio nal disorder 732158557 Completed 201405/13/[address], [place], [address] , [facility] 4 13:45:04 Irritabl e bowel syndrome 95156549 [facility] 12:45:06 Eczema 58348631 Active 2014 [facility] 4 12:38:10 Hernia of abdomina l cavity 16841501 Active 2015 [facility] 4 12:41:15 Cirrhosi s of liver 99369027 Completed 201505/13/2023 09/22/19 20 - Comments only - Nat Bryant M.D. - Has gained some weight, and possibly has ascites, although I have never examined her before. Follow-u p as planned tomorrow for imaging, labs, and speciali [facility] ent at [facility]. Problem Code: K74.69; Problem Code Type: ICD-10; MD Livan R[address] Dr, [place], [address] , [facility] 13:45:04 History of urinary tract infectio n 42893824676 07 Completed 201505/13/2023 08/03/19 16 - Comments [...] Code Type: ICD-10; MD Livan R[address] Dr, [place], [address] , [facility] 4 13:45:04 Screenin g for malignan t neoplasm of breast Completed 201505/13/2023 Problem Code: Z12.39; Problem Code Type: ICD-10; MD Livan R[address] Dr, [place], [address] , [facility] 13:45:04 Candidia sis of vagina 15488878 Completed 201505/13/2023 Problem Code: B37.3; Problem Code Type: ICD-10; MD Livan R[address] Dr, [place], [address] , [facility] 02/05/202 4 13:45:04 Portal hyperten eugene 71558609 Active 2015 no ascites or encephal opathy, EGD 2015 (gastric ulcer) [facility] 4 12:47:45 Genitour inary symptoms 498173977 Completed 201504/17/2016 Problem Code: R39.89; Problem Code Type: ICD-10; Not Available [facility] 3 04:10:10 Screenin g for malignan t neoplasm of colon Completed 201605/13/2023 Problem Code: Z12.11; Problem Code Type: ICD-10; MD Livan RODRIGUEZ Dr, [facility] [address] , [facility] 4 13:45:04 Pneumoni a 494673552 Completed 201602/15/2017 02/12/20 17 - Improved - 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 [employer] - s/p tx with azithrom ycin pt signific antly improved RTC if sx worsen/p ersist Problem Code: J18.9; Problem Code Type: ICD-10; MD Livan RODRIGUEZ Dr, [facility] [address] , [facility] 4 14:21:53 Orthosta tic hypotens ion 11926406 Active 2017 [facility] 4 12:46:41 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 repeat one year [facility] 4 12:39:42 Hepatic failure 41822741 Completed 201805/13/2023 Problem Code: K72.90; Problem Code Type: ICD-10; MD Livan R[address] Dr, [place], [address] , [facility] 4 13:45:04 Acute upper respirat ory infectio n 33279723 Completed 201811/08/2018 Problem Code: J06.9; Problem Code Type: ICD-10; MD Livan R[address] Dr, [place], [address] , [facility] 4 13:45:04 Proteinu vinod 39273534 Completed 201805/13/2023 Problem Code: R80.9; Problem Code Type: ICD-10; MD Livan [address], [place], [address] , [facility] 4 13:45:04 Hyperlip idemia 23592197 Active 2018 [facility] 4 12:44:49 Gastroes ophageal reflux disease without esophagi tis 064541107 Active 2019 [facility] 4 12:39:54 Urinary tract infectio us disease 65762548 Completed 201909/29/2019 09/22/19 20 - Comments only [...] N39.0; Problem Code Type: ICD-10; Not Available [facility] 3 04:10:12 Nervous system and sense organ diseases 415019346 Completed 202005/13/[address], [place], [address] , [facility] 4 13:45:04 Fall on or from stairs or steps Completed 202005/27/2020 Problem Code: W10.9xxA ; Problem Code Type: ICD-10; Not Available [facility] 3 04:10:12 Knee joint effusion 995212972 Completed 202006/06/2020 Problem Code: M25.469; Problem Code Type: ICD-10; Not Available [facility] 3 04:10:13 Low back pain 515411660 Completed 202006/20/2020 Problem Code: M54.5; Problem Code Type: ICD-10; AMADEO GLEASON, LABORER DRIVER [address], [address] 4 14:31:55 Dysuria 35809628 Completed 202009/03/2020 Problem Code: R30.0; Problem Code Type: ICD-10; MD Livan RODRIGUEZ Dr, [address] 5 14:40:58 Psychoph ysiologi c insomnia 067669513 Active 2020 Insomnia , chronic [facility] 4 12:48:07 Dizzines s and giddines s 018226237 Completed 202010/31/2020 Problem Code: R42; Problem Code Type: ICD-10; Not Available [facility] 3 04:10:14 Atrophic vaginiti s 00942065 Active 2020 [facility] 4 12:37:19 Urinary tract infectio us disease 37614951 Completed 202003/03/2021 Problem Code: N39.0; Problem Code Type: ICD-10; Not Available [facility] 3 04:10:14 Disorder of hematopo ietic structur e 345208447 Completed 202105/13/2023 Problem Code: D75.89; Problem Code Type: ICD-10; MD Livan RODRIGUEZ Dr, [address] 4 13:45:04 Tension- type headache 403987362 Completed 202105/13/2023 Problem Code: G44.209; Problem Code Type: ICD-10; MD Livan [address], [place], [address] , [facility] 4 13:45:04 Acute conjunct ivitis of left eye 24628923386 9105 Completed 202112/19/2021 12/13/19 22 - Comments only - Nat Bryant M.D. - Likely bacteria l. Rx sent for e-mycin ointment . Call for reevalua tion if worsenin g, or no better w/in 48 hours. Problem Code: H10.32; Problem Code Type: ICD-10; Not Available [facility] 3 04:10:15 Cerebrov ascular disease 68510861 Active 2021 [facility] 4 12:37:49 Urinary tract infectio us disease 45312673 Completed 202208/28/2022 Problem Code: N39.0; Problem Code Type: ICD-10; Not Available [facility] 3 04:10:15 Pneumoni a 442352565 Completed 202211/08/2022 10/30/19 23 - Improved - [...] Code Type: ICD-10; MD Livan [address] Dr, [place], [address] , [facility] 4 14:21:53 Edema 332051552 Active 2022 Peripher al edema [facility] 4 12:38:42 Castillo' s esophagu s 216989026 Active 2022 Gail rodriguez, [facility] 4 12:37:33 Candidia sis of skin 49840714 Completed 201810/23/2022 Problem Code: B37.2; Problem Code Type: ICD-10; Not Available [facility] 3 04:10:16 Acute atopic conjunct ivitis 91159927 Completed 201804/21/2019 Problem Code: H10.10; Problem Code Type: ICD-10; Not Available [facility] 3 04:10:16 Constipa tion 55084042 Completed 201301/02/2023 Problem Code: K59.00; Problem Code Type: ICD-10; Not Available [facility] 3 04:10:16 Cough 54333374 Completed 202201/02/2023 Problem Code: R05.8; Problem Code Type: ICD-10; RUPAL BARILLAS MD [address], [place], [address] [facility] 4 14:21:53 Hyperten sive disorder 84363394 Completed 201301/02/2023 Not Available [facility] 3 04:10:17 Neoplasm of urinary bladder 271972055 Completed 201301/02/2023 Problem Code: D49.4; Problem Code Type: ICD-10; Not Available [facility] 3 04:10:17 Enthesop athy 57037798 Completed 201812/26/2020 Problem Code: M77.9; Problem Code Type: ICD-10; Not Available [facility] 3 04:10:17 Hypercal cemia 36606788 Completed 201401/02/2023 Not Available [facility] 3 04:10:18 Lung field abnormal 668423094 Completed 201607/29/2017 Problem Code: R91.8; Problem Code Type: ICD-10; Not Available [facility] 3 04:10:18 Insomnia 155271168 Completed 201906/06/2021 Problem Code: F51.09; Problem Code Type: ICD-10; Not Available [facility] 3 04:10:18 Disorder of lung 18107382 Completed 201710/23/2022 Problem Code: J98.4; Problem Code Type: ICD-10; Not Available [facility] 3 04:10:18 Type 2 diabetes mellitus without complica tion 586792221 Completed 201301/02/2023 Problem Code: E11.9; Problem Code Type: ICD-10; INDIRA WATSON [address], [place], [address] , [facility] 4 15:17:00 Pain of left shoulder joint 38787282535 467371 Completed 201406/06/2021 Problem Code: M25.512; Problem Code Type: ICD-10; Not Available [facility] 3 04:10:19 Screenin g for osteopor osis Completed 201602/11/2017 Problem Code: Z13.820; Problem Code Type: ICD-10; Not Available [facility] 3 04:10:19 Inflamed seborrhe ic keratosi s 814944669 Completed 201910/23/2022 Problem Code: L82.0; Problem Code Type: ICD-10; Not Available [facility] 3 04:10:20 Disorder of brain 85959399 Completed 202103/05/2022 Problem Code: G93.40; Problem Code Type: ICD-10; Not Available [facility] 3 04:10:20 Other idiopath ic peripher al neuropat hy NOS Completed 201301/02/2023 Not Available [facility] 3 04:10:20 Obesity 212648522 Completed 201301/02/2023 Not Available [facility] 3 04:10:20 Fatigue 77170926 Completed 201810/27/2018 Problem Code: R53.83; Problem Code Type: ICD-10; Not Available [facility] 3 04:10:21 Genitour inary symptoms 373067589 Completed 201904/04/2020 Problem Code: R39.9; Problem Code Type: ICD-10; Not Available [facility] 3 04:10:21 Benign paroxysm al position al vertigo 616791896 Completed 202001/02/2023 Problem Code: H81.10; Problem Code Type: ICD-10; Not Available [facility] 3 04:10:22 Disorder of skin and/or subcutan eous tissue 38652581 Completed 201904/04/2020 Problem Code: L98.9; Problem Code Type: ICD-10; Not Available [facility] 3 04:10:22 Osteophy te of bone 86841644176 9100 Completed 201906/28/2020 Problem Code: M25.776; Problem Code Type: ICD-10; Not Available [facility] 3 04:10:22 Gastric ulcer 224366839 Completed 201501/02/2023 Problem Code: K25.9; Problem Code Type: ICD-10; Not Available [facility] 3 04:10:22 Right side sciatica 57152334798 9101 Completed 201804/21/2019 Problem Code: M54.31; Problem Code Type: ICD-10; Not Available [facility] 3 04:10:23 Candidia sis 73118212 Completed 201308/22/2015 Problem Code: B37.9; Problem Code Type: ICD-10; Not Available [facility] 3 04:10:23 Steatosi s of liver 760250711 Completed 201302/10/2016 Problem Code: K76.0; Problem Code Type: ICD-10; Not Available [facility] 3 04:10:23 Cough 06502765 Completed 201912/26/2020 Problem Code: R05; Problem Code Type: ICD-10; RUPAL BARILLAS MD [address], [place], [address] , [facility]. 4 14:21:53 Xerostom ia 05613452 Completed 202006/06/2021 Problem Code: R68.2; Problem Code Type: ICD-10; Gail rodriguez, [facility] 4 12:49:03 Candidal vulvovag initis 33591528 Completed 201301/02/2023 Problem Code: 112.1; Problem Code Type: ICD-9; Not Available [facility] 3 04:10:25 Intestin al disaccha ridase deficien cy 70680528 Completed 201301/02/2023 Problem Code: 271.3; Problem Code Type: ICD-9; Not Available [facility] 3 04:10:25 Acute bronchit is 06795235 Completed 201912/26/2020 Problem Code: J20.9; Problem Code Type: ICD-10; Not Available [facility] 3 04:10:26 Peripher al nerve disease 033280198 Completed 201301/02/2023 Not Available [facility] 3 04:10:26 Acute upper respirat ory infectio n 17011553 Completed 202205/13/2023 Problem Code: J06.9; Problem Code Type: ICD-10; MD Livan RODRIGUEZ Dr, [facility] [address] , [facility] 4 13:45:04 Diastoli c heart failure 277274370 Active 2022 echo 03/[address], [facility] [address] [facility] 3 11:17:46 Chest pain 68483866 Completed 202205/13/2023 Problem Code: R07.89; Problem Code Type: ICD-10; MD Livan RODR[address]UEZ Dr, [facility] [address] , [facility] 4 13:45:03 Aortic stenosis , non-rheu matic 252262734 Active 2022 mild 03/2023 echo MD Livan R[address] Dr, [address] 06:52:21 Senile hyperker atosis 922615026 Completed 202205/13/2023 Problem Code: L82.1; Problem Code Type: ICD-10; MD Livan RODRIGUEZ Dr, [address] 4 13:45:03 Melanocy tic nevus 022967650 Completed 202205/13/2023 Problem Code: D22.9; Problem Code Type: ICD-10; MD Livan RODRIGUEZ Dr, [address] 4 13:45:04 Incoordi nation 914051735 Completed 202205/13/2023 01/31/20 23 - Comments only - Rupal Barillas MD - neuro exam not c/w CVA; will eval further at next visit. Problem Code: R27.9; Problem Code Type: ICD-10; MD Livan RODRIGUEZ Dr, [address] 13:45:03 Dyspnea 869922002 Completed 202205/13/2023 Problem Code: R06.09; Problem Code Type: ICD-10; MD Livan RODRIGUE[address] Dr, [address] 4 13:45:03 Chronic diarrhea 803337627 Active 2023 Gail rodriguez, [facility] 12:37:57 Drug-ind uced xerostom ia 336120420 Active [address], [address] [employer] 4 13:38:38 Microalb uminuric diabetic nephropa thy 290371830 Active 2023 [facility] 4 12:45:11 Dyspnea on exertion 34483278 Active 2023 [facility] 4 12:37:57 Angular cheiliti s 741764466 Active 2023 [facility] 4 12:36:56 Xerostom ia 73862580 Active 2023 [facility] 12:49:03 History of adenomat ous polyp of colon 709992802 Active 2020 [facility] 12:43:44 Sialoade nitis 82321249 Completed 202308/09/[address], [place], [address] , [facility] 4 16:48:36 Low back pain 568662875 Active 2023 Problem Code: M54.5; Problem Code Type: ICD-10; AMADEONIA GLEASON, LABORER DRIVER [address], [place], [address] , [facility] 4 14:31:55 Chest pain on exertion 88179433 Active [address], [place], [address] , [facility] 4 12:24:41 Always hungry 739407911 Active [address], [place], [address] , [facility] 4 16:38:32 Altered bowel function 59788749 Active [address], [address] 4 16:38:44 Atypical chest pain 873819904 Active 2023 DORIS JONES MA [facility], [facility] 4 07:31:04 Acquired thromboc ytopenia 59215884 Active [address], [address] 4 09:56:08 Actinic keratosi s 471445807 Active [address], [address] 4 13:34:57 Nodule of lung 471741741 Active 2023 probable lipoma by PET. (benign) MD Livan RODRIGUEZ Dr, [address] 4 06:49:28 Minimal cognitiv e impairme nt 238972563 Active [address], [address] 4 15:05:52 New daily persiste nt headache 37126911630 9105 Active [address], [address] 4 16:29:33 Lichen sclerosu s of vulva 927438815 Active [address], [address] 4 15:22:25 Milia 896139419 Active [address], [place], [address] , [facility] 4 15:51:39 Obstruct keshia sleep apnea syndrome 37847766 Active 2023 DORIS JONES MA null, [facility] 4 09:39:29 Atherosc lerosis Active 2023 DORIS JONES MA null, [facility] 4 09:39:44 Cirrhosi s - non-alco holic 450310841 Active 2023 with esoph varices and low PLT but no ascites, jaundice or sx. RUPAL BARILLAS MD [address], [place], [address] , [facility] 4 06:56:02 Vulvitis 24682809 Active 2023 RUPAL BARILLAS MD [address], [facility] [address] , [facility] 4 13:20:01 Thromboc ytopenic disorder 465032630 Active 2023 RUPAL BARILLAS MD [address], [facility] [address] , [facility] 4 13:23:28 Decompen sated cirrhosi s of liver 564654582 Active 2023 INDIRA WATSON [address], [place], [address] , [facility] 4 14:23:47 Type 2 diabetes mellitus without complica tion 497564716 Active 2023 Problem Code: E11.9; Problem Code Type: ICD-10; INDIRA W[address] Dr, [place], [address] , [facility] 4 15:17:00 Coronary arterios clerosis 01058546 Active 2023 DORIS JONES MA null, [facility] 4 12:31:32 Hyperpig mentatio n of skin 69376492 Active [address], [place], [address] , [facility] 15:19:42 Pneumoni a 769584519 Completed 202303/27/2024 10/30/19 23 - Improved - [...] Code Type: ICD-10; MD Livan [address], [place], [address] , [facility] 14:21:53 Cough 87746615 Completed 202303/27/2024 Problem Code: R05.8; Problem Code Type: ICD-10; MD Livan [address], [place], [address] , [facility] 14:21:53 Notes:Some problems listed i n Document: #[id number] could not be added to this patient's chart. Please review this document and add these problems to the patient's chart manually as needed. Problem Notes None recorded. Procedures Surgical History Date Name Laterality Status Provider Name and Address Organization Details Recorded Time 4 Cryosurgery Multiple Actinic Keratoses completed MD Livan [address], [place], [address], [facility] 03/06/2024 11:24:31 4 Cryosurgery Warts/Skin Tags completed MD Livan RODRIGUEZ Dr, [facility] [address], [facility] 10/18/2023 15:47:48 4 Cryosurgery Warts/Skin Tags completed MD Livan RODRIGUE[address] Dr, [facility] [address], [facility] 10/07/2023 13:34:27 Imaging Results None recorded. Procedure Notes None recorded. Medical Equipment None Reported. Allergies Allergen ID Allergen Name Allergen Category Reaction Reaction Severity Criticality Documentation Date Start Date Code Code System Note Provider Name and Address Organization Details Recorded Time 88719 erythromy laura medicatio n other moderate Not available 02/15/20232013 4053 RxNorm stoma ch pain [facility] 12:53:11 52523 Bactrim medicatio n itching moderate Not available 08/01/20232013 67693 9 RxNorm itchy skin [facility] 12:51:33 86728 codeine medicatio n itching moderate Not available 08/01/20232013 2670 RxNorm itchy , paran oid [facility] 12:52:07 28485 Demerol medicatio n other moderate Not available 08/01/20232013 05963 1 RxNorm can' t sleep [facility] 12:52:55 01422 simvastat in medicatio n nausea moderate Not available 08/01/20232013 09336 RxNorm (ALLS TATIN S) [facility] 12:53:40 94627 Trulicity medicatio n vomiting moderate low 09/25/2023 69238 96 RxNorm MD [address], [place], [address] [place] [address] 4 12:57:22 Medications Name Sig Start Date [...] a day by oral route. [address] [facility] GI Not Available Not Available [...] once a day 12/[address] Wallis, [facility], after August 2022 OV Not [...] tablet twice a day by oral route. 12/20/ 2024 active Not Available Not Available Not Avai [...] Relief 50 mcg/actua tion nasal spray,moraima pension [place] 1 spray into both nostrils once a [...] Details Last Updated DateTime 4 154.94 cm 26 kg/m2 02548.9 5 g 96 % 96 % 84 /min 98.4 [degF] 120 mm[Hg] 64 mm[Hg] SANTOSH BAIG LPN [facility] 13:55:28 Social History Question Answer Notes LastModified by Organizat ion Details LastModified Time Tobacco Smoking Status Never Smoker GIOVANNA ASIF, [facility] 03/18/2023 15:57:23 Would You Say That, In General, Your Health Is Good Information not available 08/09/2023 How Often Does Anyone, Including Family, Physically Hurt You? Never [email or web address] Information not available 08/09/2023 How Often Does Anyone, Including Family, Insult Or Talk Down To You? Rarely [email or web address] Information no t available 08/09/2023 How Often Does Anyone, Including Family, Threaten You With Harm? Never [email or web address] Information not available 08/09/2023 How Often Does Anyone, Including Family, Scream Or Curse At You? Never [email or web address] Information not available 08/09/2023 Within The Past 12 Months, You Worried That Your Food Would Run Out Before You Got Money To Buy More. Never True [email or web address] Information n ot available 08/09/2023 Within The Past 12 Months, The Food You Bought Just Didn't Last And You Didn't Have Money To Get More. Never True Information not available 08/09/2023 How Hard Is It For You To Pay For The Very Basics Like Food, Housing, Medical Care, And Heating? Would You Say It Is: Somewhat Hard [email or web address] Information not available 08/09/2023 In The Past 12 Months, Has Lack Of Reliable Transportation Kept You From Medical Appointments, Meetings, Work Or From Getting Things Needed For Daily Living? No [email or web address] Information not available 08/09/2023 What Is Your Housing Situation Today? I Have Housing. [email or web address] Information not available 08/09/2023 How Often In The Past Year Have You Used Marijuana (including Smoking, Vaping, Dabbing, Or Edibles)? Never [email or web address] Information not available 08/09/2023 How Often In The Past Year Have You Used Prescription Medications That Were Not Prescribed To You? Never [email or web address] Information not available 08/09/2023 How Often In The Past Year Have You Taken Your Own Prescription Medication More Than The Way It Was Prescribed Or For Different Reasons Than Its Intended Purpose? Never Information not available 08/09/2023 How Often In The Past Year Have You Used Other Drugs (for Example, Heroin, Cocaine, Meth, Salvia, Inhalants)? Never [email or web address] Information not available 08/09/2023 Have You Ever Used IV Drugs? No [email or web address] Information not available 08/09/2023 Date Of Most Recent SBINS 08/09/2023 [email or web address] Information not available 08/09/2023 What Was The Date Of Your Most Recent Tobacco Screening? 10/18/2023 [email or web address] Information n ot available 10/18/2023 Has Tobacco Cessation Counseling Been Provided? No Information not available 10/25/2023 Do You Or Have You Ever Used Any Other Forms Of Tobacco Or Nicotine? No [email or web address] Information not available 03/18/2023 Sex: Female Functional Status None recorded. Mental Status None recorded. Family History Relationship Description Onset Age of this Age Resolved Age Notes LastModified by Organization Details LastModified Time Mother Family history of acute medical disorder 70 Not available 2022 03:54:47 Notes:*Problem: Mother: d. 6 7 , cirrhosis, non ETOH Father: d. [place], acute hepatitis Sisters: x1, cirrhosis, non ETOH, [...] high-dose, trivalent, PF 4 completed GIOVANNA ASIF, [facility] 01/09/2024 16:25:43 COVID-19, mRNA, LNP-S, PF, mayito-sucrose, 30 mcg/0.3 mL 4 completed GIOVANNA ASIF, [facility] 01/09/2024 16:25:43 Td (adult), 2 Lf tetanus toxoid, preservative free, adsorbed 7 completed Not Available [facility] 02/15/2023 05:29:32 Hep A-Hep B 7 completed Not Available [facility] 02/15/2023 05:29:32 Hep A-Hep B 6 completed Not Available [facility] 02/15/2023 05:29:32 Tdap 7 completed Not Available [facility] 02/15/2023 05:29:32 Pneumococcal conjugate PCV 13 7 completed Not Available [facility] 02/15/2023 05:29:32 Td(adult) unspecified formulation 6 completed Not Available [facility] 02/15/2023 05:29:32 Influenza, split virus, trivalent, preservative 6 completed Not Available [facility] 02/15/2023 05:29:32 Influenza, split virus, trivalent, preservative 5 completed Not Available [facility] 02/15/2023 05:29:32 Influenza, split virus, quadrivalent, PF 2 completed Not Available [facility] 02/15/2023 05:29:33 Influenza, split virus, quadrivalent, PF 3 completed [facility] Available [facility] 02/15/2023 05:29:33 Influenza, split virus, quadrivalent, preservative 7 completed Not Available [facility] 02/15/2023 05:29:33 Influenza, split virus, quadrivalent, preservative 8 completed Not Available [facility] 02/15/2023 05:29:33 Influenza, high-dose, quadrivalent, PF 1 completed Not Available [facility] 02/15/2023 05:29:33 COVID-19, mRNA, LNP-S, PF, 100 mcg/0.5mL dose or 50 mcg/0.25mL dose 1 completed Not Available [facility] 02/15/2023 05:29:33 COVID-19, mRNA, LNP-S, PF, 100 mcg/0.5mL dose or 50 mcg/0.25mL dose 1 completed Not Available [facility] 02/15/2023 05:29:33 COVID-19, mRNA, LNP-S, PF, 100 mcg/0.5mL dose or 50 mcg/0.25mL dose 2 completed Not Available [facility] 02/15/2023 05:29:33 SARS-COV-2 (COVID-19) vaccine, UNSPECIFIED 1 completed Not Available [facility] 02/15/2023 05:29:34 COVID-19, mRNA, LNP-S, bivalent, PF, 30 mcg/0.3 mL dose 3 completed Not Available [facility] 02/15/2023 05:29:34 COVID-19, mRNA, LNP-S, bivalent, PF, 30 mcg/0.3 mL dose 2 completed Not Available [facility] 02/15/2023 05:29:34 pneumococcal polysaccharide PPV23 7 completed Not Available [facility] 02/15/2023 05:29:34 pneumococcal polysaccharide PPV23 5 completed Not Available [facility] 02/15/2023 05:29:34 pneumococcal polysaccharide PPV23 1 completed Not Available [facility] 02/15/2023 05:29:34 Hep B, adult 7 completed Not Available [facility] 02/15/2023 05:29:34 influenza, unspecified formulation 8 completed Not Available [facility] 02/15/2023 05:29:34 influenza, unspecified formulation 4 completed Not Available [facility] 02/15/2023 05:29:34 influenza, unspecified formulation 9 completed Not Available [facility] 02/15/2023 05:29:35 Influenza, high-dose, quadrivalent, PF 3 completed Not Available [facility] 04/19/2023 05:31:38 COVID-19, mRNA, LNP-S, PF, mayito-sucrose, 30 mcg/0.3 mL 3 completed Not Available [facility] 04/19/2023 05:31:38 Past Encounters Encounter ID Performer Location Encounter Start Date Encounter Closed Date Diagnosis/Indication Diagnosis SNOMED-CT Code Diagnosis ICD10 Code Diagnosis Note [id number] RUPAL BARILLAS MD [address] [address] 03/04/2024 13:41:07 03/04/2024 14:36:13 Neuropathy due to type 2 diabetes mellitus 7448676834 36092 E11.40 Actinic keratosis 291383 007 L57.0 L eyelid, treated with cryotherap y today, re-eval at next OV. 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 Advised ER evaluation . Updated Brice provider. Her will bring her directly there. Acute confusion 14411508 0 R41.0 She was unable to give me any details and seemed more confused than usual, concerning for possible delirium. Advised ER evaluation . Her Health Concerns Section Related Observation LastModified by Organization Detai ls LastModified Time None Recorded Concern Status LastModified by Organization Details LastModified Time None Recorded Payers Encounter Date Sequence Insurance Name Policy Number Policy Lucas Covered Member ID Lucas Member ID Guarantor Name 03/17/2024 1 [id number] ([place]/A DVANTAGE - PPO) [id number] Milka Corbett [id number] Milka Corbett Notes Date Note Type [...] cream. RUPAL BARILLAS MD [address], [place], [address], [facility]. 03/17/2024 15:27:17 OBGyn Episode No OBEpisode recorded.
--- OUTSIDE RECORDS SUMMARY | 2024-04-16 15:38 | XMS_ITS | Encounter Summary ---
Author Organization [facility] Address [facility] [place] [address] Care Team Providers Care Bin Tripper Operator Name Role Phone Aysha Johnson MD Primary Care Provider [phone] Reason for Visit * Reason Comments Medication Refill Encounter Details Date Type Department Care Team (Late st Contact Info) Description 04/14/2024 Refill [place] [phone] Molly Cui PANTS PRESSER [facility] [address] Gastroesophageal reflux disease without esophagitis Social History Tobacco Use Types Packs/Day Years Used Date Smoking Tobacco: Never Smokeless Tobacco: Never Alcohol Use Standard Drinks/Week Comments Yes 0 (1 standard drink = 0.6 oz pur e alcohol) once per year [facility] Inpatient Questions Answer Date [...] 04/28/2024 11:00 AM EST [place] [phone] Molly Cui PANTS PRESSER [facility] [place] [address] 04/28/2024 2:00 PM EST Office [place] [address] Molly Cui APRN [facility] [place] [address] documented as of this encounter Visit Diagnoses Diagnosis Gastroesophageal reflux disease without esophagitis Esophageal reflux documented in this encounter Care Teams Bin Tripper Operator Relationship Specialty Start Date End Date Aysha Johnson MD [address] [address] PCP - General Family Medicine 12/12/23 documented as of this encounter
--- OUTSIDE RECORDS SUMMARY | 2024-04-16 15:38 | XMS_ITS | Encounter Summary ---
Author Organization [facility] [address] Care Team Providers Care Supervisor Grading Name Role Phone Aysha Johnson MD Primary Care Provider Encounter Details Date Type Department Care Team (Late st Contact Info) Description 12/26/2023 Telephone Cardiology at [address] [phone] Agnieszka Vinson, RN Social History Tobacco Use Types Packs/Day Years Used Date Smoking Tobacco: Never Smokeless Tobacco: Never Alcohol Use Standard Drinks/Week Comments Yes 0 (1 standard drink = 0.6 oz pur e alcohol) once per year [facility] Inpatient Questions Answer Date Recorded Does Anyone [...] [facility] Team Nurse [phone] documented in this encounter Plan of Treatment Upcoming Encounters Date Type Department Care Team (Late st Contact Info) Description 04/28/2024 11:00 AM EST [place] [address] Molly uCi, [facility] [place] [address] 04/28/2024 2:00 PM EST Office [place] [address] Molly Cui, [facility] [place] [address] documented as of this encounter Visit Diagnoses Not on filedocumented in this encounter Care Teams Supervisor Grading Relationship Specialty Start Date End Date Aysha Johnson MD [address] [place] [address] PCP - General Family Medicine 12/12/23 documented as of this encounter
--- OUTSIDE RECORDS SUMMARY | 2024-04-16 15:38 | XMS_ITS | Encounter Summary ---
Author Organization [facility] [place] [address] Care Team Providers Care Procurement Manager Name Role Phone Aysha Johnson MD Primary Care Provider [phone] Encounter Details Date Type Department Care Team (Latest Contact Info) Description 12/23/2023 10:30 AM EDT TH Visit (TeleHealth) [place] [address] Molly Cui, PAYROLL PROCESSOR [facility] [place] [address] JIMENEZ (dyspnea on exertion); Hepatic cirrhosis, unspecified hepatic cirrhosis type, unspecified whether ascites present Social History Tobacco Use Types Packs/Day Years Used Date Smoking Tobacco: Never Smokeless Tobacco: Never Alcohol Use Standard Drinks/Week Comments Yes 0 (1 standard drink = 0.6 oz pur e alcohol) once per year [facility] Inpatient Questions Answer Date Recorded [...] She was previously seeing Dr. Ortega in [place] - was seeing him in [facility], but he was in process of moving so started seeing cards at [facility]. He thought thtere was narrowing in aorta [...] Cui APRN Section of Gastroenterology [place] [address] Copy: Aysha Johnson MD [address] / [place] [address] Time spent reviewing records prior to this [...] 11:00 AM EST Appointment [place] [address] Molly Cui APRN [facility] [place] [address] 04/28/2024 2:00 PM EST Office Visit [place] [phone] Molly Cui PAYROLL PROCESSOR [facility] [place] [address] documented as of this encounter Visit Diagnoses Diagnosis JIMENEZ (dyspnea on exertion) Other dyspnea and respiratory abnormality Hepatic cirrhosis, unspecified hepatic cirrhosis type, unspecified whether ascites present documented in this encounter Care Teams Procurement Manager Relationship Specialty Start Date End Date Aysha Johnson MD [address] [place] [address] PCP - General Family Medicine 12/12/23 documented as of this encounter
--- OUTSIDE RECORDS SUMMARY | 2024-04-16 15:39 | XMS_ITS | Encounter Summary ---
Author Organization [facility] [place] [address] Care Team Providers Care Syrup Maker Cook Name Role Phone Aysha Johnson MD Primary Care Provider [phone] Reason for Visit * Diagnostic Test (Routine) - Closed Specialty Diagnoses / Procedures Referred By Contac t Referred To Contact Radiology Diagnoses Chest pain on breathing Procedures NM Pharmacologic Stress and Rest Myocardial Perfusion NM Exercise Stress and Rest Myocardial Perfusion Jac hCeng MD [facility] [place] [address] [facility] [place] [address] Referral ID Status Reason Start Date Expiration Date V isits Requested Visits Authorized [id number] Closed Specialty Service Requested 12/10/2023 06/08/2025 1 1 Encounter Details Date Type Department Care Team (Latest Contact Info) Description 12/20/2023 9:40 AM EDT Hospital Encounter [place] [address] Rebeka Orosco MD [facility] [place] [address] Discharge Disposition: Home Social History Tobacco Use Types Packs/Day Years Used Date Smoking Tobacco: Never Smokeless Tobacco: Never Alcohol Use Standard Drinks/Week Comments Yes 0 (1 standard drink = 0.6 oz pur e alcohol) once per year [facility] Inpatient Questions Answer Date Recorded Does [...] type, unspecified whether angina present, unspecified whether sleetmute or transplanted heart Place 1 tablet under the tongue every 5 minutes as needed for Chest pain. 25 tablet 12 12/13/2023 ranolazine ER (Ranexa) 500 mg ER 12 hr tabletIndications:Luis nary artery disease, unspecified vessel or lesion type, unspecified whether angina present, unspecified whether sleetmute or transplanted heart Take 1 tablet by mouth 2 times daily. 60 tablet 12/13/2023 isosorbide mononitrate CR (Imdur) 30 mg ER 24 hr tablet Take 30 mg by mouth 2 times daily. apedisnckm-tscqmhb-iln feine (Fiorinal) 50-325-40 mg tablet Take 1 [...] directed. 05/02/2020 fluticasone propionate (FLONASE) 50 mcg/actuation [place], Suspension 1 spray daily. pramipexole (MIRAPEX) 0.125 [...] 04/28/2024 11:00 AM EST Appoint[place] [address] Molly Ciu, [facility] [place] [address] 04/28/2024 2:00 PM EST Office Visit [place] [address] Molly Cui, [facility] [place] [address] documented as of this encounter Procedures Procedure Name Priority Date/Time Associated Diagnosis Comments NM PHARMACOLOGIC STRESS AND REST MYOCARDIAL PERFUSION Routine 12/20/2023 11:27 AM EDT Chest pain on breathing documented in this encounter Results * NM Pharmacologic Stress CT Component (12/20/2023 11:45 AM EDT) Quirky Signature WORKSTATION ID [id number] [facility] Anatomical Region Laterality Modality Nuclear Medicine Impressions [...] have questions please contact the health care transitions nurse that requested your imaging first. ? Narrative [...] who have questions please contactthe health care transitions nurse that requested your imaging first. Rebeka Orosco MD [facility] NM ORDERABLES * NM Pharmacologic Stress and Rest Myocardial Perfusion (12/20/2023 11:27 AM EDT) WORKSTATION ID [id number] [facility] Anatomical Region Laterality Modality Nuclear Medicine Impressions [...] have questions please contact the health care transitions nurse that requested your imaging first. ? Narrative [...] who have questions please contactthe health care transitions nurse that requested your imaging first. Rebeka Orosco MD IMG NM ORDERABLES documented in this encounter Visit Diagnoses Not on filedocumented in this encounter Care Teams Syrup Maker Cook Relationship Specialty Start Date End Date Aysha Johnson MD [address] [place] [address] PCP - General Family Medicine 12/12/23 documented as of this encounter
--- OUTSIDE RECORDS SUMMARY | 2024-04-16 15:39 | XMS_ITS | Encounter Summary ---
Author Organization [facility] [place] [address] Care Team Providers Care Relocation Commissioner Name Role Phone Aysha Johnson MD Primary Care Provider [phone] Reason for Visit * Diagnostic Test (Routine) - Closed Specialty Diagnoses / Procedures Referred By Contac t Referred To Contact Radiology Diagnoses Chest pain on breathing Procedures NM Pharmacologic Stress and Rest Myocardial Perfusion NM Exercise Stress and Rest Myocardial Perfusion Jac Cheng MD [facility] [place] [address] [facility] [place] [address] Referral ID Status Reason Start Date Expiration Date V isits Requested Visits Authorized [id number] Closed Specialty Service Requested 12/10/2023 06/08/2025 1 1 Encounter Details Date Type Department Care Team (Latest Contact Info) Description 12/20/2023 9:41 AM EDT - 12/20/2023 9:43 AM EDT Hospital Encounter [place] [address] Rebeka Orosco MD [facility] [place] [address] Discharge Disposition: Home Social History Tobacco Use Types Packs/Day Years Used Date Smoking Tobacco: Never Smokeless Tobacco: Never Alcohol Use Standard Drinks/Week Comments Yes 0 (1 standard drink = 0.6 oz pur e alcohol) once per year [facility] Inpatient Questions Answer Date Recorded Does [...] 30 mg by mouth 2 times daily. oillbivrdu-teyimic-eyu feine (Fiorinal) 50-325-40 mg tablet Take 1 [...] Take 20 mg by mouth daily. Victoza 2-Lj 0.6 mg/0.1 mL (18 mg/3 mL) Pen Injector Inject 1.8 mg as directed. 05/02/2020 fluticasone propionate (FLONASE) 50 mcg/actuation [place], Suspension 1 spray daily. pramipexole (MIRAPEX) 0.125 [...] 04/28/2024 11:00 AM EST [place] [address] Molly Cui, [facility] [address] 04/28/2024 2:00 PM EST Office [place] [phone] Molly Cui, [facility] [address] documented as of this encounter Procedures Procedure Name Priority Date/Time Associated Diagnosis Comments NM PHARMACOLOGIC STRESS AND REST MYOCARDIAL PERFUSION Routine 12/20/2023 11:27 AM EDT Chest pain on breathing documented in this encounter Results * NM Pharmacologic Stress CT Component (12/20/2023 11:45 AM EDT) WORKSTATION ID [id number] [facility] Anatomical Region Laterality Modality Nuclear Medicine Impressions [...] who have questions please contact the health assisted living care manager that requested your imaging first. ? [...] patients who have questions please contactthe health assisted living care manager that requested your imaging first. Rebeka Orosco MD IM NM ORDERABLES * NM Pharmacologic Stress and Rest Myocardial Perfusion (12/20/2023 11:27 AM EDT) WORKSTATION ID [id number] [facility] Anatomical Region Laterality Modality Nuclear Medicine Impressions [...] who have questions please contact the health assisted living care manager that requested your imaging first. ? [...] patients who have questions please contactthe health assisted living care manager that requested your imaging first. Rebeka Orosco MD IMG NM ORDERABLES documented in this encounter Visit Diagnoses Not on filedocumented in this encounter Care Teams Relocation Commissioner Relationship Specialty Start Date End Date Aysha Johnson MD [address] [place] [address] PCP - General Family Medicine 12/12/23 documented as of this encounter
--- OUTSIDE RECORDS SUMMARY | 2024-04-16 15:39 | XMS_ITS | Encounter Summary ---
Author [facility] [place] [address] Care Team Providers Care Title Insurance Agent Name Role Phone Salome Mcarthur APRN Primary Care Provider [phone] Encounter Details Date Type Department Care Team [...] 04/28/2024 11:00 AM EST Appointment [place] [address] Molly Cui GEOTHERMAL POWERPLANT MECHANIC HELPER [facility] [place] [address] 04/28/2024 2:00 PM EST Office Visit [place] [phone] Molly Cui [facility] [place] [address] documented as of this encounter Visit Diagnoses Not on filedocumented in this encounter Care Teams Title Insurance Agent Relationship Specialty Start Date End Date Salome Mcarthur APRN [address] [address] PCP - General Family Medicine 05/30/15 12/11/23 documented as of this encounter
--- OUTSIDE RECORDS SUMMARY | 2024-04-16 15:39 | XMS_ITS | Encounter Summary ---
Author Organization [facility] Address [facility] [place] [address] Care Team Providers Care Ribbon Lapper Tender Name Role Phone Aysha Johnson MD Primary Care Provider [phone] Reason for Visit * Reason Comments Advice Only * Consultation (Routine) - Closed Specialty Diagnoses / Procedures Referred By Contruth t Referred To Contact Hematology and Oncology Diagnoses Thrombocytopenia Leland Ortega MD [address] [place] [id number] [facility] Hem Onc [address] [place] [address] Referral ID Status Reason Start Date Expiration Date V isits Requested Visits Authorized [id number] Closed Consult, Test & Treat 12/03/2023 12/02/2024 1 1 Encounter Details Date Type Department Care Team (Late st Contact Info) Description 12/20/2023 1:00 PM EDT Office Visit [place] [address] Evin Little MD [facility] [address] Thrombocytopenia Social History Tobacco Use Types Packs/Day Years Used Date Smoking Tobacco: Never Smokeless Tobacco: Never Alcohol Use Standard Drinks/Week Comments Yes 0 (1 standard drink = 0.6 oz pur e alcohol) once per year [facility] Inpatient Questions Answer Date Recorded Does [...] MULTIPLE performed by Leticia Ashraf MD at [facility] ENDOSCOPY PRO UPPER GI ENDOSCOPY, DIAGNOSTIC Bilateral 07/14/2015 EGD, UPPER GI ENDOSCOPY performed by Leticia Ashraf MD at [facility] ENDOSCOPY PRO UPPER GI ENDOSCOPY, DIAGNOSTIC N/A 09/17/2018 EGD, UPPER GI ENDOSCOPY performed by Juliette Chauhan MD at [facility] ENDOSCOPY PRO UPPER GI ENDOSCOPY, DIAGNOSTIC N/A 09/23/2019 EGD, UPPER GI ENDOSCOPY performed by Juliette Chauhan MD at [facility] ENDOSCOPY PRO UPPER GI ENDOSCOPY, DIAGNOSTIC N/A 09/26/2020 EGD, UPPER GI ENDOSCOPY performed by Braulio Bailey MD at [facility] ENDOSCOPY PRO UPPER GI ENDOSCOPY, DIAGNOSTIC N/A 01/31/2022 EGD, UPPER GI ENDOSCOPY performed by Leland Ramos MD at [facility] ENDOSCOPY PRO UPPER GI ENDOSCOPY, DIAGNOSTIC N/A 01/23/2023 EGD, UPPER GI ENDOSCOPY (WRVU 2.09) performed by Juliette Chauhan MD at [facility] ENDOSCOPY RECTOCELE REPAIR 08/2011 at [facility] AND BSO 1987 for endometriosis TUBAL LIGATION [...] DAILY atorvastatin (LIPITOR) 20 mg, Oral, DAILY bihmthuzga-zrvtfkf-zbdxzjfg (Fiorinal) 50-325-40 mg tablet 1 tablet, Oral, [...] mg, DAILY fluticasone propionate (FLONASE) 50 mcg/actuation [place], Suspension 1 spray, DAILY gabapentin (NEURONTIN) 600 [...] Concern None Social History Narrative Lives in [place], [place] with her of 10 years. 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 Social Determinants of Health Financial Resource Strain: [...] above threshold for treatment; it would not mold changer recommendations for observation. Bone marrow aspiration and [...] that I can appreciate as having a [id number] incidence of thrombocytopenia would be aspirin, for [...] PRN Evin Little MD Section of Hematology Investorbak[employer] assistant [facility] Greater than 45 minutes were spent on date of visit, including non-face to face time. Patient consents to use of [facility] portal for communication of results. This note was completed using SmartCloud[employer] Dictation technology. Please reach out if there are significant errors in plant care worker that require clarification on my part. CC: MD Jordan Milner Michael G documented in this encounter Plan of Treatment Upcoming Encounters Date Type Department Care Team (Late st Contact Info) Description 04/28/2024 11:00 AM EST [place] [phone] Molly Cui, [facility] [place] [address] 04/28/2024 2:00 PM EST Office [place] [phone] Molly Cui, [facility] [place] [address] documented as of this encounter Results * HIV Screen, 4th Generation ([facility] [place]CGP/APD/NLH[place] (12/20/2023 12:29 PM EDT) HIV Ab/Ag Screen Negative Negative 12/20/2023 1:38 PM EDT [facility] Comment:Low Risk of HIV Infe ction. Blood VENOUS BLOOD SPECIMEN / Unknown Venipuncture / Unknown 12/20/2023 12:29 PM EDT 12/20/2023 12:29 PM EDT Narrative [facility] - 12/20/2023 1:38 PM [...] performed. Evin Little MD CHEMISTRY ORDERABLE S [facility] [place] [address] * Hepatitis C Antibody (12/20/2023 12:29 PM EDT) Pathologist [facility] Hepatitis C Antibody Negative Negative 12/20/2023 1:38 PM EDT [facility] Blood VENOUS BLOOD SPECIMEN / Unknown Venipuncture / Unknown 12/20/2023 12:29 PM EDT 12/20/2023 12:29 PM EDT Evin Little MD CHEMISTRY ORDERABLE S Performing Organization Address City/[facility]/ZIP Co de Phone Number [facility] [place] [address] * Hepatitis B Surface Antigen (12/20/2023 12:29 PM EDT) [facility] Hepatitis B Surface Antigen Negative Negative 12/20/2023 1:38 PM EDT [facility] Blood VENOUS BLOOD SPECIMEN / Unknown Venipuncture / Unknown 12/20/2023 12:29 PM EDT 12/20/2023 12:29 PM EDT Evin Little MD CHEMISTRY ORDERABLE S Performing Organization Address City/[facility]/ZIP Co de Phone Number [facility] [place] [address] * (ABNORMAL) Kamilla-Llanos Virus Antibodies (12/20/2023 12:29 PM EDT) [facility] EBNA Antibodies Positive(A) Negative 12/24/2023 11:49 AM EDT [facility] EBV (VCA) IgG Ab Positive(A) Negative 12/24/2023 11:49 AM EDT [facility] EBV (VCA) IgM Ab Negative Negative 12/24/2023 11:49 AM EDT [facility] EBV Interp Past EBV infection. 12/24/2023 11:49 AM EDT [facility] Blood VENOUS BLOOD SPECIMEN / Unknown Venipuncture / Unknown 12/20/2023 12:29 PM EDT 12/20/2023 12:29 PM EDT Narrative [facility] - 12/24/2023 11:49 AM EDT In [...] MD IMMUNOLOGY ORDERABL ES Performing Organization Address City/[facility]/ZIP Co de Phone Number [facility] [place] [address] * CMV Antibody, IgM (12/20/2023 12:29 PM EDT) CMV IgM Negative Negative 12/24/2023 11:57 AM EDT [facility] Blood VENOUS BLOOD SPECIMEN / Unknown Venipuncture / Unknown 12/20/2023 12:29 PM EDT 12/20/2023 12:29 PM EDT Evin Little MD IMMUNOLOGY ORDERABL ES [facility] [place] [address] * CMV Antibody, IgG (12/20/2023 12:29 PM EDT) CMV IgG Negative Negative 12/24/2023 11:48 AM EDT [facility] Blood VENOUS BLOOD SPECIMEN / Unknown Venipuncture / Unknown 12/20/2023 12:29 PM EDT 12/20/2023 12:29 PM EDT Evin Little MD IMMUNOLOGY ORDERABL ES [facility] [place] [address] * Hepatitis B Core Antibody, Total (12/20/2023 12:29 PM EDT) Hepatitis B Core Antibody Negative Negative 12/20/2023 1:38 PM EDT [facility] Blood VENOUS BLOOD SPECIMEN / Unknown Venipuncture / Unknown 12/20/2023 12:29 PM EDT 12/20/2023 12:29 PM EDT Evin Little MD CHEMISTRY ORDERABLE S Performing Organization Address [facility] Co de Phone Number [facility] [place] [address] * Hepatitis B Surface Antibody (12/20/2023 12:29 PM EDT) Pathologist [facility] Hepatitis B Surface Antibody, Quantitative <3.5 IU/L 12/20/2023 6:11 PM EDT [facility] Comment: Unvaccinated: < 8.5 IU/L Vaccinated: >= 11.5 IU/L Hepatitis B Surface Antibody Negative 12/20/2023 6:11 PM EDT [facility] Comment: Patient is presumed to be not vaccinated or immune to HBV infection. Expected Results: Vaccinated: Positive Unvaccinated: Negative Blood VENOUS BLOOD SPECIMEN / Unknown Venipuncture / Unknown 12/20/2023 12:29 PM EDT 12/20/2023 12:29 PM EDT Evin Little MD CHEMISTRY ORDERABLE S Performing Organization Address City/[facility]/ZIP Co de Phone Number [facility] [place] [address] * Lactate Dehydrogenase (12/20/2023 12:29 PM EDT) Lactate Dehydrogenase 131 110 - 220 unit/L 12/20/2023 1:08 PM EDT [facility] Blood VENOUS BLOOD SPECIMEN / Unknown Venipuncture / Unknown 12/20/2023 12:29 PM EDT 12/20/2023 12:29 PM EDT Evin Little MD CHEMISTRY ORDERABLE S [facility] [place] [address] * (ABNORMAL) Comprehensive metabolic panel (12/20/2023 12:29 PM EDT) Glucose 116 65 - 199 mg/dL 12/20/2023 1:08 PM EDT [facility] Comment:Glucose Concentratio n >=200 mg/dL plus symptoms is consistent with Diabetes Mellitus. Blood Urea Nitrogen 23(H) 8 - 18 mg/dL 12/20/2023 1:08 PM EDT [facility] Creatinine 0.88 0.70 - 1.20 mg/dL 12/20/2023 1:08 PM EDT [facility] Sodium 139 135 - 145 mMol/L 12/20/2023 1:08 PM EDT [facility] Potassium 3.9 3.5 - 5.0 mMol/L 12/20/2023 1:08 PM EDT [facility] Chloride 101 98 - 107 mMol/L 12/20/2023 1:08 PM EDT [facility] Carbon Dioxide 27 22 - 31 mMol/L 12/20/2023 1:08 PM EDT [facility] Anion Gap 11 5 - 15 mMol/L 12/20/2023 1:08 PM EDT [facility] Calcium 9.7 8.5 - 10.5 mg/dL 12/20/2023 1:08 PM EDT [facility] Protein, Total 7.0 6.1 - 8.0 g/dL 12/20/2023 1:08 PM EDT [facility] Albumin 4.3 3.2 - 5.2 g/dL 12/20/2023 1:08 PM EDT [facility] Aspartate Aminotransferase 25 <=30 unit/L 12/20/2023 1:08 PM EDT [facility] Alanine Aminotransferase 23 0 - 30 unit/L 12/20/2023 1:08 PM EDT [facility] Alkaline Phosphatase 96 35 - 105 unit/L 12/20/2023 1:08 PM EDT [facility] Bilirubin, Total 0.7 <=1.3 mg/dL 12/20/2023 1:08 PM EDT [facility] Est Glomerular Filtration Rate - Female 66 mL/min/1. 73 m?? 12/20/2023 1:08 PM EDT [facility] Comment: This patient's estimated [...] Fasting Status No 12/20/2023 1:08 PM EDT [facility] Blood VENOUS BLOOD SPECIMEN / Unknown Venipuncture / Unknown 12/20/2023 12:29 PM EDT 12/20/2023 12:29 PM EDT Evin Little MD CHEMISTRY ORDERABLE S [facility] [place] [address] * (ABNORMAL) CBC (with Diff) (12/20/2023 12:29 PM EDT) White Blood Cell 6.24 4.00 - 9.50 x10(3)/mcL 12/20/2023 12:51 PM EDT [facility] Red Blood Cell 4.24 4.00 - 5.21 x10(6)/mcL 12/20/2023 12:51 PM [facility] Hemoglobin 12.7 11.7 - 15.5 g/dL 12/20/2023 12:51 PM [facility] Hematocrit 38.9 35.7 - 45.8 % 12/20/2023 12:51 PM [facility] Mean Cell Volume 91.7 82.6 - 94.4 fL 12/20/2023 12:51 PM [facility] Mean Cell Hemoglobin 30.0 27.1 - 32.0 pg 12/20/2023 12:51 PM [facility] Mean Cell Hemoglobin Concentration 32.6 31.7 - 35.0 g/dL 12/20/2023 12:51 PM [facility] Platelet 86(L) 145 - 357 x10(3)/mcL 12/20/2023 12:51 PM [facility] Mean Platelet Volume 11.7 7.6 - 12.9 fL 12/20/2023 12:51 PM [facility] RDW Standard Deviation 45.6 37.0 - 46.0 fL 12/20/2023 12:51 PM [facility] RDW coefficient of variation 13.5 11.5 - 14.1 % 12/20/2023 12:51 PM [facility] NRBC% auto 0.0 % 12/20/2023 12:51 PM [facility] NRBC Absolute 0.00 0.00 - 0.00 x10(3)/mcL 12/20/2023 12:51 PM [facility] Neutrophil % 64.6 % 12/20/2023 12:51 PM [facility] Neutrophil Absolute (ANC) - Automated 4.03 1.70 - 6.10 x10(3)/mcL 12/20/2023 12:51 PM [facility] Lymph % 22.4 % 12/20/2023 12:51 PM [facility] Lymph Absolute 1.40 0.90 - 3.20 x10(3)/[facility] 12/20/2023 12:51 PM EDT [facility] Monocyte % 11.9 % 12/20/2023 12:51 PM EDT [facility] Monocyte Absolute 0.74 0.30 - 0.90 x10(3)/[facility] 12/20/2023 12:51 PM EDT [facility] Eos % 0.6 % 12/20/2023 12:51 PM EDT [facility] Eos Absolute 0.04 0.00 - 0.40 x10(3)/[facility] 12/20/2023 12:51 PM EDT [facility] Basophil % 0.2 % 12/20/2023 12:51 PM EDT [facility] Baso Absolute 0.01 0.00 - 0.10 x10(3)/[facility] 12/20/2023 12:51 PM EDT [facility] Immature Gran % 0.3 % 12:51 PM EDT [facility] Immature Gran Absolute 0.02 0.00 - 0.04 x10(3)/[facility] 12/20/2023 12:51 PM EDT [facility] Blood VENOUS BLOOD SPECIMEN / Unknown Venipuncture / Unknown 12/20/2023 12:29 PM EDT 12/20/2023 12:29 PM EDT Evin Little MD HEMATOLOGY ORDERABL ES [facility] [place] [address] documented in this encounter Visit Diagnoses Diagnosis Thrombocytopenia Thrombocytopenia, unspecified documented in this encounter Care Teams Ribbon Lapper Tender Relationship Specialty Start Date End Date Aysha Johnson MD [address] [place] [address] PCP - General Family Medicine 12/12/23 documented as of this encounter
--- OUTSIDE RECORDS SUMMARY | 2024-04-16 15:39 | XMS_ITS | Encounter Summary ---
Author Organization [facility] Address [facility] [place] [address] Care Team Providers Care Pull Over Name Role Phone Aysha Johnson MD Primary Care Provider [phone] Reason for Visit * Reason Onset Date Comments Medication Refill 12/13/2023 Encounter Details Date Type Department Care Team (Late st Contact Info) Description 12/13/2023 Refill Cardiology at [address] [phone] Yonathan Gibson MD [facility] [place] [address] Medication Refill Social History Tobacco Use Types [...] 04/28/2024 11:00 AM [place] [phone] Molly Cui APRN [facility] [place] [address] 04/28/2024 2:00 PM EST Office [place] [address] Molly Cui APRN [facility] [place] [address] documented as of this encounter Visit Diagnoses Diagnosis Coronary artery disease, unspecified vessel or lesion type, unspecified whether angina present, unspecified whether mechoopda or transplanted heart documented in this encounter Care Teams Pull Over Relationship Specialty Start Date End Date Aysha Johnson MD [address] [place] [address] PCP - General Family Medicine 12/12/23 documented as of this encounter
--- OUTSIDE RECORDS SUMMARY | 2024-04-16 15:39 | XMS_ITS | Encounter Summary ---
Author Organization [facility] [place] [address] Care Team Providers Care High School Academic Coach Name Role Phone Salome Mcarthur APRN Primary Care Provider [phone] Encounter Details Date Type Department Care Team (Latest Contact Info) Description 08/08/2023 12:35 PM EDT Laboratory Appointment Lab [address] [place] [address] Hepatic cirrhosis, unspecified hepatic cirrhosis [...] AM [place] [address] Molly Cui [facility] [place] [address] 04/28/2024 2:00 PM EST Office [place] [address] Molly Cui [facility] [place] [address] documented as of this encounter [...] 12:19 PM EDT) Neutrophil % 63.4 % [facility] Neutrophil Absolute 3.44 1.70 - 6.10 x10(3)/[facility] Lymph % 24.0 % [facility] Lymphocytes Abs 1.3 0.9 - 3.2 x10(3)/[facility] Monocyte % 10.1 % [facility] Monocyte Abs 0.6 0.3 - 0.9 x10(3)/[facility] Eos % 1.5 % [facility] Eosinophils Abs 0.1 0.0 - 0.4 x10(3)/[facility] Basophil % 0.6 % [facility] Baso Absolute 0.0 0.0 - 0.1 x10(3)/[facility] Immature Gran % 0.40 % [facility] Comment: Immature granulocytes(IG's)percentage and absolute count will include metamyelocytes, myelocytes, and promyelocytes. Blood smears from CBCs yielding IG's will be scanned manually for concordance. If this scan disagrees with the automated IG or if promyelocytes are noted, a manual differential will be performed. Immature Gran Absolute 0.02 0.00 - 0.04 x10(3)/[facility] Blood 08/08/2023 12:1 9 PM EDT 08/08/2023 12:41 PM EDT Narrative Resulting Agency Comment Spec In Lab Molly Cui APRN HEMATOLOGY ORDERAB LES [facility] [place] [address] * (ABNORMAL) Hemogram (08/08/2023 12:19 PM EDT) White Blood Cell 5.4 4.0 - 9.5 x10(3)/[facility] Red Blood Cell 4.15 4.00 - 5.21 x10(6)/[facility] Hemoglobin 12.8 11.7 - 15.5 g/dL [facility] Hematocrit 38.5 35.7 - 45.8 % [facility] Mean Cell Volume 92.8 82.6 - 94.4 [facility] Mean Cell Hemoglobin 30.8 27.1 - 32.0 pg [facility] Mean Cell Hemoglobin Concentration 33.2 31.7 - 35.0 g/dL [facility] Platelet 78(L) 145 - 357 x10(3)/[facility] RDW Standard Deviation 45.4 37.0 - 46.0 [facility] RDW coefficient of variation 13.3 11.5 - 14.1 % [facility] Mean Platelet Volume 12.1 7.6 - 12.9 [facility] NRBC% auto 0.0 % [facility] NRBC Absolute 0.000 0.000 - 0.000 x10(3)/[facility] Blood 08/08/2023 12:1 9 PM EDT 08/08/2023 12:41 PM EDT Narrative Resulting Agency Comment Spec In Lab Mollyjuan a Cui LORETO HEMATOLOGY ORDERAB LES [facility] [place] [address] * (ABNORMAL) Comprehensive metabolic panel (non-fasting) (08/08/2023 [...] APRN CHEMISTRY ORDERABL ES Performing Organization Address [facility] Co de Phone Number [facility] [place] [address] * Prothrombin Time (08/08/2023 12:19 PM EDT) [...] APRN HEMATOLOGY ORDERAB LES Performing Organization Address [facility]/ZIP Co de Phone Number [facility] [place] [address] documented in this encounter Visit Diagnoses Diagnosis Hepatic cirrhosis, unspecified hepatic cirrhosis type, unspecified whether ascites present documented in this encounter Care Teams High School Academic Coach Relationship Specialty Start Date End Date Salome Mcarthur, [employer]Y CHARGE PROCESS ATTENDANT [address] [place] [address] PCP - General Family Medicine 05/30/15 12/11/23 documented as of this encounter
--- OUTSIDE RECORDS SUMMARY | 2024-04-16 15:39 | XMS_ITS | Encounter Summary ---
Author Organization [facility] [place] [address] Care Team Providers Care Entertainment Manager Name Role Phone Salome Mcarthur APRN Primary Care Provider [phone] Encounter Details Date Type Department Care Team [...] 04/28/2024 11:00 AM EST Appointment [place] [address] Molly Cui PROFESSOR OF PHYSICAL EDUCATION [facility] [place] [address] 04/28/2024 2:00 PM EST Office Visit [place] [address] Molly Cui [facility] [place] [address] documented as of this encounter Visit Diagnoses Not on filedocumented in this encounter Care Teams Entertainment Manager Relationship Specialty Start Date End Date Salome Mcarthur APRN [address] [address] PCP - General Family Medicine 05/30/15 12/11/23 documented as of this encounter
--- OUTSIDE RECORDS SUMMARY | 2024-04-16 15:39 | XMS_ITS | Encounter Summary ---
Author Organization [facility] Address [facility] [place] [address] Care Team Providers Care Sagger Preparer Name Role Phone Salome Mcarthur APRN Primary Care Provider [phone] Encounter Details Date Type Department Care Team (Late st Contact Info) Description 11/24/2023 Notes Only Hematology [place] [phone] Dariel Ortega MD [facility] [address] HEMATOLOGY [place] [address] Social History Tobacco Use Types Packs/Day Years [...] 04/28/2024 11:00 AM EST [place] [address] Molly Cui APRN [facility] [place] [address] 04/28/2024 2:00 PM EST Office Visit [place] [address] Molly Cui APRN [facility] [place] [address] documented as of this encounter Visit Diagnoses Not on filedocumented in this encounter Care Teams Sagger Preparer Relationship Specialty Start Date End Date Salome Mcarthur APRN [address] [place] [address] PCP - General Family Medicine 05/30/15 12/11/23 documented as of this encounter
--- OUTSIDE RECORDS SUMMARY | 2024-04-16 15:39 | XMS_ITS | Encounter Summary ---
Author Organization [facility] Address [place] [address] Care Team Providers Care Car Shakeout Operator Name Role Phone Aysha Johnson MD Primary Care Provider [phone] Encounter Details Date Type Department Care Team (Late st Contact Info) Description 12/11/2023 Telephone Gastroenterology at [facility] [place] [phone] Jacque Gale RN Social History Tobacco Use Types Packs/Day Years Used Date Smoking Tobacco: Never Smokeless Tobacco: Never Alcohol Use Standard Drinks/Week Comments Yes 0 (1 standard drink = 0.6 oz pur e alcohol) once per year [facility] Inpatient Questions Answer Date Recorded Does Anyone [...] 04/28/2024 11:00 AM EST [place] [address] Molly Cui, [facility] [place] [address] 04/28/2024 2:00 PM EST Office [place] [phone] Molly Cui, [facility] [place] [address] documented as of this encounter Visit Diagnoses Not on filedocumented in this encounter Care Teams Car Shakeout Operator Relationship Specialty Start Date End Date Aysha Johnson MD [address] [place] [address] PCP - General Family Medicine 12/12/23 documented as of this encounter
--- OUTSIDE RECORDS SUMMARY | 2024-04-16 15:39 | XMS_ITS | Encounter Summary ---
Author Organization [facility] [place] [address] Care Team Providers Care Barrel Line Operator Name Role Phone yAsha Johnson MD Primary Care Provider [phone] Reason for Visit * Diagnostic Test (Routine) - Closed Specialty Diagnoses / Procedures Referred By Contac t Referred To Contact Radiology Diagnoses Chest pain on breathing Procedures NM Pharmacologic Stress and Rest Myocardial Perfusion NM Exercise Stress and Rest Myocardial Perfusion Jac Cheng MD [facility] [place] [address] [facility] [place] [address] Referral ID Status Reason Start Date Expiration Date V isits Requested Visits Authorized [id number] Closed Specialty Service Requested 12/10/2023 06/08/2025 1 1 Encounter Details Date Type Department Care Team (Latest Contact Info) Description 12/20/2023 9:39 AM EDT Hospital Encounter [place] [address] Rebeka Orosco MD [facility] [place] [address] Chest pain on breathing Discharge Disposition: Home Social History Tobacco Use Types Packs/Day Years Used Date Smoking Tobacco: Never Smokeless Tobacco: Never Alcohol Use Standard Drinks/Week Comments Yes 0 (1 standard drink = 0.6 oz pur e alcohol) once per year [facility] Inpatient Questions Answer Date Recorded [...] type, unspecified whether angina present, unspecified whether resighini or transplanted heart Place 1 tablet under the tongue every 5 minutes as needed for Chest pain. 25 tablet 12 12/13/2023 ranolazine ER (Ranexa) 500 mg ER 12 hr tabletIndications:Luis nary artery disease, unspecified vessel or lesion type, unspecified whether angina present, unspecified whether resighini or transplanted heart Take 1 tablet by mouth 2 times daily. 60 tablet 12/13/2023 isosorbide mononitrate CR (Imdur) 30 mg ER 24 hr tablet Take 30 mg by mouth 2 times daily. jbpratkuvr-rmugnmk-fqd feine (Fiorinal) 50-325-40 mg tablet Take 1 [...] directed. 05/02/2020 fluticasone propionate (FLONASE) 50 mcg/actuation [place], Suspension 1 spray daily. pramipexole (MIRAPEX) 0.125 [...] 04/28/2024 11:00 AM EST Appointment [place] [address] Molly Cui, [facility] [place] [address] 04/28/2024 2:00 PM EST Office Visit [place] [phone] Molly Cui, [facility] [place] [address] documented as of this encounter Procedures Procedure Name Priority Date/Time Associated Diagnosis Comments NM PHARMACOLOGIC STRESS AND REST MYOCARDIAL PERFUSION Routine 12/20/2023 11:27 AM EDT Chest pain on breathing documented in this encounter Results * NM Pharmacologic Stress and Rest Myocardial Perfusion (12/20/2023 11:27 AM EDT) WORKSTATION ID [id number] [facility] Anatomical Region Laterality Modality [...] who have questions please contact the health hospice care sales consultant that requested your imaging first. ? Electronically signed by: Ed Benavides MD, [facility] ([phone]), at 12/20/2023 1:52 PM Narrative 12/20/2023 1:52 [...] patients who have questions please contactthe health hospice care sales consultant that requested your imaging first. Electronically signed by: Ed Benavides MD, [facility]([phone]), at 12/20/2023 1:52 PM Rebeka Orosco MD [...] mCi documented in this encounter Care Teams Barrel Line Operator Relationship Specialty Start Date End Date Aysha Johnson MD [address] [place] [address] PCP - General Family Medicine 12/12/23 documented as of this encounter
--- OUTSIDE RECORDS SUMMARY | 2024-04-16 15:39 | XMS_ITS | Encounter Summary ---
Author Organization [facility] [place] [address] Care Team Providers Care Testing Shaking Shipping Name Role Phone Aysha Johnson MD Primary Care Provider [phone] Encounter Details Date Type Department Care Team (Latest Contact Info) Description 12/20/2023 12:15 PM EDT - 12/20/2023 11:59 PM EDT Hospital Encounter Hematology [place] [phone] Thrombocytopenia Discharge Disposition: Home Social History Tobacco Use Types Packs/Day Years Used Date Smoking Tobacco: Never Smokeless Tobacco: Never Alcohol Use Standard Drinks/Week Comments Yes 0 (1 standard drink = 0.6 oz pur e alcohol) once per year [facility] Inpatient Questions Answer Date Recorded Does Anyone [...] type, unspecified whether angina present, unspecified whether [place] or transplanted heart Place 1 tablet under the tongue every 5 minutes as needed for Chest pain. 25 tablet 12 12/13/2023 ranolazine ER (Ranexa) 500 mg ER 12 hr tabletIndications:Luis nary artery disease, unspecified vessel or lesion type, unspecified whether angina present, unspecified whether [place] or transplanted heart Take 1 tablet by mouth 2 times daily. 60 tablet 12/13/2023 isosorbide mononitrate CR (Imdur) 30 mg ER 24 hr tablet Take 30 mg by mouth 2 times daily. jttmyoeiwo-cjoajja-muz feine (Fiorinal) 50-325-40 mg tablet Take 1 [...] directed. 05/02/2020 fluticasone propionate (FLONASE) 50 mcg/actuation [place], Suspension 1 spray daily. pramipexole (MIRAPEX) 0.125 [...] 04/28/2024 11:00 AM [place] [address] Molly Cui DESTINATION IMAGINATION COORDINATOR [facility] [place] [address] 04/28/2024 2:00 PM EST Office [place] [phone] Molly Cui, [facility] [place] [address] documented as of this encounter Procedures Procedure Name Priority Date/Time Associated Diagnosis Comments HEPATITIS C ANTIBODY STAT 12/20/2023 12:29 PM EDT Thrombocytopenia LOCO-LLANOS VIRUS ANTIBODIES STAT 12/20/2023 12:29 PM EDT Thrombocytopenia CMV ANTIBODY, IGM STAT 12/20/2023 12: 29 PM EDT Thrombocytopenia HEPATITIS B CORE ANTIBODY, TOTAL STAT 12/20/2023 12:29 PM EDT Thrombocytopenia HIV SCREEN, 4TH GENERATION ([facility]/P/APD/[facility]) STAT 12/20/2023 12:29 PM EDT Thrombocytopenia HEPATITIS [...] encounter Results * HIV Screen, 4th Generation ([facility]/CGP/APD/[facility]) (12/20/2023 12:29 PM EDT) [facility] Signature HIV Ab/Ag Screen Negative Negative 12/20/2023 1:38 PM EDT [facility] Comment:Low Risk of HIV Infe ction. Blood VENOUS BLOOD SPECIMEN / Unknown Venipuncture / Unknown 12/20/2023 12:29 PM EDT 12/20/2023 12:29 PM EDT Narrative [facility] - 12/20/2023 1:38 PM EDT [...] performed. Evin Little MD CHEMISTRY ORDERABLE S [facility] [place] [address] * Hepatitis C Antibody (12/20/2023 12:29 PM EDT) Pathologist [facility] Hepatitis C Antibody Negative Negative 12/20/2023 1:38 PM EDT [facility] Blood VENOUS BLOOD SPECIMEN / Unknown Venipuncture / Unknown 12/20/2023 12:29 PM EDT 12/20/2023 12:29 PM EDT Evin Little MD CHEMISTRY ORDERABLE S Performing Organization Address City/[facility]/ZIP Co de Phone Number [facility] [place] [address] * Hepatitis B Surface Antigen (12/20/2023 12:29 PM EDT) [facility] Hepatitis B Surface Antigen Negative Negative 12/20/2023 1:38 PM EDT [facility] Blood VENOUS BLOOD SPECIMEN / Unknown Venipuncture / Unknown 12/20/2023 12:29 PM EDT 12/20/2023 12:29 PM EDT Evin Little MD CHEMISTRY ORDERABLE S Performing Organization Address City/[facility]/ZIP Co de Phone Number [facility] [place] [address] * (ABNORMAL) Loco-Llanos Virus Antibodies (12/20/2023 12:29 PM EDT) [facility] EBNA Antibodies Positive(A) Negative 12/24/2023 11:49 AM EDT [facility] EBV (VCA) IgG Ab Positive(A) Negative 12/24/2023 11:49 AM EDT [facility] EBV (VCA) IgM Ab Negative Negative 12/24/2023 11:49 AM EDT [facility] EBV Interp Past EBV infection. 12/24/2023 11:49 AM EDT [facility] Blood VENOUS BLOOD SPECIMEN / Unknown Venipuncture / Unknown 12/20/2023 12:29 PM EDT 12/20/2023 12:29 PM EDT [facility] - 12/24/2023 11:49 AM EDT In [...] EBV. Evin Little MD IMMUNOLOGY ORDERABL ES [facility] [place] [address] * CMV Antibody, IgM (12/20/2023 12:29 PM EDT) CMV IgM Negative Negative 12/24/2023 11:57 AM EDT [facility] Blood VENOUS BLOOD SPECIMEN / Unknown Venipuncture / Unknown 12/20/2023 12:29 PM EDT 12/20/2023 12:29 PM EDT Evin Little MD IMMUNOLOGY ORDERABL ES [facility] [place] [address] * CMV Antibody, IgG (12/20/2023 12:29 PM EDT) CMV IgG Negative Negative 12/24/2023 11:48 AM EDT [facility] Blood VENOUS BLOOD SPECIMEN / Unknown Venipuncture / Unknown 12/20/2023 12:29 PM EDT 12/20/2023 12:29 PM EDT Evin Little MD IMMUNOLOGY ORDERABL ES [facility] [place] [address] * Hepatitis B Core Antibody, Total (12/20/2023 12:29 PM EDT) Hepatitis B Core Antibody Negative Negative 12/20/2023 1:38 PM EDT [facility] Blood VENOUS BLOOD SPECIMEN / Unknown Venipuncture / Unknown 12/20/2023 12:29 PM EDT 12/20/2023 12:29 PM EDT Evin Little MD CHEMISTRY ORDERABLE S Performing Organization Address [facility]/ZIP Co de Phone Number [facility] [place] [address] * Hepatitis B Surface Antibody (12/20/2023 12:29 PM EDT) Hepatitis B Surface Antibody, Quantitative <3.5 IU/L 12/20/2023 6:11 PM EDT [facility] Comment: Unvaccinated: < 8.5 IU/L Vaccinated: >= 11.5 IU/L Hepatitis B Surface Antibody Negative 12/20/2023 6:11 PM EDT [facility] Comment: Patient is presumed to be not vaccinated or immune to HBV infection. Expected Results: Vaccinated: Positive Unvaccinated: Negative Blood VENOUS BLOOD SPECIMEN / Unknown Venipuncture / Unknown 12/20/2023 12:29 PM EDT 12/20/2023 12:29 PM EDT Evin Little MD CHEMISTRY ORDERABLE S Performing Organization Address City/[facility]/ZIP Co de Phone Number [facility] [place] [address] * Lactate Dehydrogenase (12/20/2023 12:29 PM EDT) Lactate Dehydrogenase 131 110 - 220 unit/L 12/20/2023 1:08 PM EDT [facility] Blood VENOUS BLOOD SPECIMEN / Unknown Venipuncture / Unknown 12/20/2023 12:29 PM EDT 12/20/2023 12:29 PM EDT Evin Little MD CHEMISTRY ORDERABLE S [facility] [place] [address] * (ABNORMAL) Comprehensive metabolic panel (12/20/2023 12:29 PM EDT) Pathologist [facility] Glucose 116 65 - 199 mg/dL 12/20/2023 1:08 PM EDT [facility] Comment:Glucose Concentratio n >=200 mg/dL plus symptoms is consistent with Diabetes Mellitus. Blood Urea Nitrogen 23(H) 8 - 18 mg/dL 12/20/2023 1:08 PM EDT [facility] Creatinine 0.88 0.70 - 1.20 mg/dL 12/20/2023 1:08 PM EDT [facility] Sodium 139 135 - 145 mMol/L 12/20/2023 1:08 PM EDT [facility] Potassium 3.9 3.5 - 5.0 mMol/L 12/20/2023 1:08 PM EDT [facility] Chloride 101 98 - 107 mMol/L 12/20/2023 1:08 PM EDT [facility] Carbon Dioxide 27 22 - 31 mMol/L 12/20/2023 1:08 PM EDT [facility] Anion Gap 11 5 - 15 mMol/L 12/20/2023 1:08 PM EDT [facility] Calcium 9.7 8.5 - 10.5 mg/dL 12/20/2023 1:08 PM EDT [facility] Protein, Total 7.0 6.1 - 8.0 g/dL 12/20/2023 1:08 PM EDT [facility] Albumin 4.3 3.2 - 5.2 g/dL 12/20/2023 1:08 PM EDT [facility] Aspartate Aminotransferase 25 <=30 unit/L 12/20/2023 1:08 PM EDT [facility] Alanine Aminotransferase 23 0 - 30 unit/L 12/20/2023 1:08 PM EDT [facility] Alkaline Phosphatase 96 35 - 105 unit/L 12/20/2023 1:08 PM EDT [facility] Bilirubin, Total 0.7 <=1.3 mg/dL 12/20/2023 1:08 PM EDT [facility] Est Glomerular Filtration Rate - Female 66 mL/min/1. 73 m?? 12/20/2023 1:08 PM EDT [facility] Comment: This patient's [...] Fasting Status No 12/20/2023 1:08 PM EDT [facility] Blood VENOUS BLOOD SPECIMEN / Unknown Venipuncture / Unknown 12/20/2023 12:29 PM EDT 12/20/2023 12:29 PM EDT Evin Little MD CHEMISTRY ORDERABLE S [facility] [place] [address] * (ABNORMAL) CBC (with Diff) (12/20/2023 12:29 PM EDT) White Blood Cell 6.24 4.00 - 9.50 x10(3)/[facility] 12/20/2023 12:51 PM [facility] Red Blood Cell 4.24 4.00 - 5.21 x10(6)/mcL 12/20/2023 12:51 PM [facility] Hemoglobin 12.7 11.7 - 15.5 g/dL 12/20/2023 12:51 PM [facility] Hematocrit 38.9 35.7 - 45.8 % 12/20/2023 12:51 PM [facility] Mean Cell Volume 91.7 82.6 - 94.4 fL 12/20/2023 12:51 PM [facility] Mean Cell Hemoglobin 30.0 27.1 - 32.0 pg 12/20/2023 12:51 PM [facility] Mean Cell Hemoglobin Concentration 32.6 31.7 - 35.0 g/dL 12/20/2023 12:51 PM [facility] Platelet 86(L) 145 - 357 x10(3)/[facility] 12/20/2023 12:51 PM [facility] Mean Platelet Volume 11.7 7.6 - 12.9 fL 12/20/2023 12:51 PM [facility] RDW Standard Deviation 45.6 37.0 - 46.0 fL 12/20/2023 12:51 PM [facility] RDW coefficient of variation 13.5 11.5 - 14.1 % 12/20/2023 12:51 PM [facility] NRBC% auto 0.0 % 12/20/2023 12:51 PM [facility] NRBC Absolute 0.00 0.00 - 0.00 x10(3)/mcL 12/20/2023 12:51 PM [facility] Neutrophil % 64.6 % 12/20/2023 12:51 PM [facility] Neutrophil Absolute (ANC) - Automated 4.03 1.70 - 6.10 x10(3)/[facility] 12/20/2023 12:51 PM EDT [facility] Lymph % 22.4 % 12/20/2023 12:51 PM EDT [facility] Lymph Absolute 1.40 0.90 - 3.20 x10(3)/mcL 12/20/2023 12:51 PM EDT [facility] Monocyte % 11.9 % 12/20/2023 12:51 PM EDT [facility] Monocyte Absolute 0.74 0.30 - 0.90 x10(3)/[facility] 12/20/2023 12:51 PM EDT [facility] Eos % 0.6 % 12/20/2023 12:51 PM EDT [facility] Eos Absolute 0.04 0.00 - 0.40 x10(3)/[facility] 12/20/2023 12:51 PM EDT [facility] Basophil % 0.2 % 12/20/2023 12:51 PM EDT [facility] Baso Absolute 0.01 0.00 - 0.10 x10(3)/[facility] 12/20/2023 12:51 PM EDT [facility] Immature Gran % 0.3 % 12:51 PM EDT [facility] Immature Gran Absolute 0.02 0.00 - 0.04 x10(3)/[facility] 12/20/2023 12:51 PM EDT [facility] Blood VENOUS BLOOD SPECIMEN / Unknown Venipuncture / Unknown 12/20/2023 12:29 PM EDT 12/20/2023 12:29 PM EDT Evin Little MD HEMATOLOGY ORDERABL ES [facility] [place] [address] documented in this encounter Visit Diagnoses Diagnosis Thrombocytopenia Thrombocytopenia, unspecified documented in this encounter Care Teams Testing Shaking Shipping Relationship Specialty Start Date End Date Aysha Johnson MD [address] [place] [id number] PCP - General Family Medicine 12/12/23 documented as of this encounter
--- OUTSIDE RECORDS SUMMARY | 2024-04-16 15:39 | XMS_ITS | Encounter Summary ---
Author Organization [place] [address] Care Team Providers Care Sparmaker Name Role Phone Salome Mcarthur APRN Primary Care Provider [phone] Reason for Visit * Reason Comments Medication Refill Encounter Details Date Type Department Care Team (Late st Contact Info) Description 10/23/2023 Refill [place] [phone] Molly Cui [facility] [place] [address] Portal hypertension Social History Tobacco Use Types [...] 11:00 AM EST Appointment [place] [phone] Molly Cui [facility] [place] [address] 04/28/2024 2:00 PM EST Office Visit [place] [phone] Molly Cui [facility] [place] [address] documented as of this encounter Visit Diagnoses Diagnosis Portal hypertension documented in this encounter Care Teams Sparmaker Relationship Specialty Start Date End Date Salome Mcarthur APRN [facility] [address] [place] [address] PCP - General Family Medicine 05/30/15 12/11/23 documented as of this encounter
--- OUTSIDE RECORDS SUMMARY | 2024-04-16 15:39 | XMS_ITS | Encounter Summary ---
Author Organization [facility] Address [facility] [place] [address] Care Team Providers Care Product/Device Technologist Name Role Phone Salome Mcarthur APRN Primary Care Provider [phone] Reason for Visit * Reason Comments Leg Swelling Encounter Details Date Type Department Care Team (Late st Contact Info) Description 12/06/2023 11:47 AM EDT - 12/06/2023 5:37 PM EDT Emergency [place] [address] Nicole Hollingsworth MD [facility] DR [place] [address] MARTÍNEZ (dyspnea on exertion); Exertional chest pain [...] sent through Care Everywhere. * Chest Pain (Croatian) * SOB (Shortness of Breath) (Croatian) documented in this encounter Medications at Time of Discharge Medication Sig Dispensed Refills Start Date End Date isosorbide mononitrate CR (Imdur) 30 mg ER 24 hr tablet Take 30 mg by mouth 2 times daily. lvvhyaeckz-eccywuq-uxg feine (Fiorinal) 50-325-40 mg tablet Take 1 [...] directed. 05/02/2020 fluticasone propionate (FLONASE) 50 mcg/actuation [place], Suspension 1 spray daily. pramipexole (MIRAPEX) 0.125 [...] she is being evaluated by cardiology at [facility] and recommended she start Lasix yesterday. [...] have questions please contact the health care rep that requested your imaging first. Electronically signed by: Khloe Keith MD, [facility] ([phone]), at 12/06/2023 1:15 PM NM Pharmacologic Stress CT Component (Results Pending) NM [...] for which she is being evaluated at [facility]. Over last 2 weeks her leg swelling has become acutely worse moving superiorly and now she has increasing abdominal girth and weight gain. She is now sleeping on 3 pillows at night becauseof her orthopnea and dyspneic even with conversation. She spoke with her meat cutting block repairer over the lastseveral days who recommended Lasix [...] to 3 pillows orthopnea. She has a meat cutting block repairer who started her on 10 mg of Lasix per day yesterday. She says her meat cutting block repairer thinks that she needs a cardiac catheterization. [...] primary care physician. Nicole Hollingsworth MD 12/06/23 0446 Nicole Hollingsworth MD 12/06/23 4182 * Jessica Luu MD - 12/06/2023 11:27 AM EDT Telehealth Nbvwetjv-rt-Yipevr Note: The following documentation is provided in [...] 04/28/2024 11:00 AM [place] [address] Molly Cui APRN [facility] [place] [address] 04/28/2024 2:00 PM EST Office [place] [phone] Molly Cui APRN [facility] [place] [place] [address] Scheduled Orders Name Type Priority Associated Diagnoses [...] Whole Blood (12/06/2023 5:00 PM EDT) Pathologist [facility] Lactate, Whole Blood 2.8(H) 0.5 - 2.2 mmol/L 12/06/2023 5:06 PM EDT [facility] Blood VENOUS BLOOD SPECIMEN / Unknown IP Care Team Draw / Unknown 12/06/2023 5:00 PM EDT 12/06/2023 5:04 PM EDT Nicole Hollingsworth MD CHEMISTRY ORDERABLE S [facility] [place] [address] * ECHO COMPLETE (12/06/2023 2:33 PM EDT) EF 60 HEARTLAB SYSTEM Anatomical Region Laterality Modality Cardiac Other 12/06/2023 1:50 PM EDT Narrative 12/06/2023 2:38 PM EDT 1 [place] [address] ? Echocardiogram Report Name: NICK MENDIETA Yue ?Study Date: 12/06/2023 01:50 PM ? Patient Location: ED ED15 1 : 1940 ? Height: 155 cm ? Account: [id number] Age: 83 yrs ? Weight: 64 kg Gender: Female ?BSA: 1.6 m2 Ordering Physician: NICLOE HOLLINGSWORTH Performed By: Megan Tamayo RDCS Reason For Study: MARTÍNEZ Exam Location: [facility]. Interpretation Summary Left ventricular size and systolic function are normal. Left ventricular ejection fraction is estimated visually at 60-65%. There are no segmental wall motion abnormalities. Right ventricular systolic function is normal. There is mild aortic stenosis. No prior studies for comparison Procedure Complete-[id number]. Image enhancement Optison was used for left [...] Note Sony Alicea MD - 12/06/2023 1 [place] [address] Echocardiogram Report Name: NICK MENDIETA Study Date: 401:50 PM Patient Location: [facility] 1 : 1940 Height: 155 cm Account: [id number] Age: 83 yrs Weight: 64 kg Gender: Female BSA: 1.6 m2 Ordering Physician: NICOLE HOLLINGSWORTH Performed By: Megan Tamayo RDCS Reason For Study: MARTÍNEZ Exam Location: [facility]. Interpretation Summary Left ventricular size and systolic function are normal. Left ventricularejection fraction is estimated visually at 60-65%. There are no segmental wallmotion abnormalities. Right ventricular systolic function is normal. There is mild aortic stenosis. No prior studies for comparison Procedure Complete-[id number]. Image enhancement Optison was used for left [...] (Generic) (12/06/2023 12:49 PM EDT) WORKSTATION ID [id number] RAD Anatomical Region Laterality Modality Chest N/A [...] have questions please contact the health care rep that requested your imaging first. ? Electronically signed by: Khloe Keith MD, [facility] ([phone]), at 12/06/2023 1:15 PM Narrative 12/06/2023 1:15 PM EDT EXAMINATION: XR [...] who have questions please contactthe health care rep that requested your imaging first. Electronically signed by: Khloe Keith MD, [facility]([phone]), at 12/06/2023 1:15 PM Nicole Hollingsworth MD IMG DX ORDERABLES * [...] CARE TEST ORDERABLES [facility] [place] [place] [address] * (ABNORMAL) Hemoglobin A1c (12/06/2023 12:37 PM [...] red blood cell turnover may not be auto claim representative of glycemic control. Reference Interval: 4.3 [...] into estimated average glucose values. ??Diabetes Care 2008:31(8):4977-7803. Additional resources are available on the ADA website (diabetes.org). Nicole Hollingsworth MD CHEMISTRY ORDERABLE S [facility] [place] [place] [address] * Gold Tube HOLD (12/06/2023 12:37 PM EDT) Gold Hold Hold for Add-on 12/06/2023 3:01 PM EDT [facility] Blood VENOUS BLOOD SPECIMEN / Unknown IP Care Team Draw / Unknown 12/06/2023 12:37 PM EDT 12/06/2023 1:02 PM EDT Nicole Hollingsworth MD CHEMISTRY ORDERABLE S Performing Organization Address City/[facility]/ZIP Co de Phone Number [facility] [place] [address] * Blue Tube HOLD (12/06/2023 12:37 PM EDT) Blue Hold Hold for Add-on 12/06/2023 3:01 PM EDT [facility] Blood VENOUS BLOOD SPECIMEN / Unknown IP Care Team Draw / Unknown 12/06/2023 12:37 PM EDT 12/06/2023 1:03 PM EDT Nicole Hollingsworth MD HEMATOLOGY ORDERABL ES Performing Organization Address [facility] [place] [address] * Lavender Tube HOLD (12/06/2023 12:37 PM EDT) Lavender Hold Hold for Add-on 12/06/2023 3:01 PM EDT [facility] Blood VENOUS BLOOD SPECIMEN / Unknown IP Care Team Draw / Unknown 12/06/2023 12:37 PM EDT 12/06/2023 1:03 PM EDT Nicole Hollingsworth MD HEMATOLOGY ORDERABL ES Performing Organization Address City/[facility]/ZIP Co de Phone Number [facility] [place] [place] [address] * EKG 12 Lead (12/06/2023 12:36 PM EDT) Ventricular rate 89 BPM MUSE SYSTEM Atrial Rate 89 BPM MUSE SYSTEM P-R Interval 208 ms MUSE SYSTEM QRS Duration 94 ms MUSE SYSTEM Q-T Interval 368 ms MUSE SYSTEM QTC Calculated (Bezet) 447 ms MUSE SYSTEM Calculated P [place] 61 degrees MUSE SYSTEM Calculated R [place] -26 degrees MUSE SYSTEM Calculated T [place] 14 degrees MUSE SYSTEM INTERPRETATION Normal sinus [...] CHEMISTRY ORDERABLE S [facility] [place] [place] [address] * HDL/Cholesterol Profile (12/06/2023 12:36 PM EDT) [...] ACC/AHA Guidelines (most recently Emy et al. [facility] 01/09/22): * For individuals with atherosclerotic [...] CHEMISTRY ORDERABLE S [facility] [place] [address] * Troponin-T, High Sensitivity 1 Hour (12/06/2023 12:36 PM EDT) [facility] Troponin-T, High Sensitivity 10 <=14 ng/L 12/06/2023 [...] troponin value can be found in the [facility] Test Catalog Troponin - https://one-.testcatalog.org/catalogs/565/files/54172 Reference: Fourth [place] Definition of Myocardial Infarction. Journal of the [place] College of Cardiology 2018;72:2541-7759 Troponin-T, HS 1 hr delta 1 ng/L [...] Luu MD CHEMISTRY ORDERABLES Performing Organization Address [facility] Co de Phone Number [facility] [place] [address] * (ABNORMAL) Magnesium (12/06/2023 11:43 AM EDT) Magnesium 0.49(L) 0.69 - 1.07 mMol/L 12/06/2023 1:01 PM EDT [facility] Blood VENOUS BLOOD SPECIMEN / Unknown IP Care Team Draw / Unknown 12/06/2023 11:43 AM EDT 12/06/2023 12:02 PM EDT Nicole Hollingsworth MD CHEMISTRY ORDERABLE S Performing Organization Address City/[facility]/ZIP Co de Phone Number [facility] [place] [address] * pro-Brain Natriuretic Peptide (12/06/2023 11:43 AM EDT) NT-proBNP 266 <=449 pg/mL 12/06/2023 1:01 PM EDT [facility] Blood VENOUS BLOOD SPECIMEN / Unknown IP Care Team Draw / Unknown 12/06/2023 11:43 AM EDT 12/06/2023 12:02 PM EDT Nicole Hollingsworth MD CHEMISTRY ORDERABLE S Performing Organization Address City/[facility]/ZIP Co de Phone Number [facility] [place] [address] * Gold Tube HOLD (12/06/2023 11:43 AM EDT) Gold Hold Hold for Add-on 12/06/2023 2:01 PM EDT [facility] Blood VENOUS BLOOD SPECIMEN / Unknown 12/06/2023 11:43 AM EDT 12/06/2023 12:03 PM EDT Jessica Luu MD CHEMISTRY ORDERABLES [facility] [place] [address] * Blue Tube HOLD (12/06/2023 11:43 AM EDT) Blue Hold Hold for Add-on 12/06/2023 2:01 PM EDT [facility] Blood VENOUS BLOOD SPECIMEN / Unknown 12/06/2023 11:43 AM EDT 12/06/2023 12:03 PM EDT Jessica Luu MD HEMATOLOGY ORDERABLE S [facility] [place] [address] * Troponin-T, High Sensitivity (12/06/2023 11:43 AM [...] troponin value can be found in the [facility] Test Catalog Troponin - https://oneTrivie.testcatalog.org/catalogs/565/files/98842 Reference: Fourth [place] Definition of Myocardial Infarction. Journal of the [place] College of Cardiology 2018;72:2330-0757 Blood VENOUS BLOOD SPECIMEN / Unknown IP Care Team Draw / Unknown 12/06/2023 11:43 AM EDT 12/06/2023 12:02 PM EDT Jessica Luu MD CHEMISTRY ORDERABLES [facility] [place] [address] * (ABNORMAL) Basic Metabolic Panel (12/06/2023 11:43 [...] MD CHEMISTRY ORDERABLES [facility] [place] [address] * (ABNORMAL) CBC (with Diff) (12/06/2023 11:43 AM EDT) White Blood Cell 4.98 4.00 - 9.50 x10(3)/mc L 12/06/2023 12:15 PM EDT [facility] Red Blood Cell 3.98(L) 4.00 - 5.21 x10(6)/mc L 12/06/2023 12:15 PM EDT [facility] Hemoglobin 12.0 11.7 - 15.5 g/dL 12/06/2023 12:15 PM [facility] Hematocrit 37.2 35.7 - 45.8 % 12/06/2023 12:15 PM [facility] Mean Cell Volume 93.5 82.6 - 94.4 fL 12/06/2023 12:15 PM [facility] Mean Cell Hemoglobin 30.2 27.1 - 32.0 pg 12/06/2023 12:15 PM [facility] Mean Cell Hemoglobin Concentration 32.3 31.7 - 35.0 g/dL 12/06/2023 12:15 PM [facility] Platelet 78(L) 145 - 357 x10(3)/mc L 12/06/2023 12:15 PM [facility] Mean Platelet Volume 12.8 7.6 - 12.9 fL 12/06/2023 12:15 PM [facility] RDW Standard Deviation 46.0 37.0 - 46.0 fL 12/06/2023 12:15 PM [facility] RDW coefficient of variation 13.5 11.5 - 14.1 % 12/06/2023 12:15 PM [facility] NRBC% auto 0.0 % 12/06/2023 12:15 PM [facility] NRBC Absolute 0.00 0.00 - 0.00 x10(3)/mc L 12/06/2023 12:15 PM [facility] Neutrophil % 63.0 % 12/06/2023 12:15 PM [facility] Neutrophil Absolute (ANC) - Automated 3.14 1.70 - 6.10 x10(3)/mc L 12/06/2023 12:15 PM [facility] Lymph % 22.9 % 12/06/2023 12:15 PM [facility] Lymph Absolute 1.14 0.90 - 3.20 x10(3)/mc L 12/06/2023 12:15 PM [facility] Monocyte % 12.7 % 12/06/2023 12:15 [...] MD HEMATOLOGY ORDERABLE S Performing Organization Address City/State/[facility] Co de Phone Number [facility] [place] [address] documented in this encounter Visit Diagnoses Diagnosis [...] RN) documented in this encounter Care Teams Product/Device Technologist Relationship Specialty Start Date End Date Salome Mcarthur, ENTRY PROCESSOR [address] [place] [address] PCP - General Family Medicine 05/30/15 12/11/23 documented as of this encounter
--- OUTSIDE RECORDS SUMMARY | 2024-04-16 15:39 | XMS_ITS | Encounter Summary ---
[place] [address] Care Team Providers Care Yoga Teacher Name Role Phone Salome Mcarthur APRN Primary Care Provider [phone] Reason for Referral * Diagnostic Test (Routine) - Closed Specialty Diagnoses / Procedures Referred By Contac t Referred To Contact Radiology Diagnoses Lung nodule Procedures NM PET CT Skull Base to Mid-thigh Aysha Johnson MD [address] [place] [address] [place] [address] Referral ID Status Reason Start Date Expiration Date V isits Requested Visits Authorized [id number] Closed Specialty Service Requested 10/08/2023 04/09/2025 1 1 Reason for Visit * Diagnostic Test (Routine) - Closed Specialty Diagnoses / Procedures Referred By Contac t Referred To Contact Radiology Diagnoses Lung nodule Procedures NM PET CT Skull Base to Mid-thigh Aysha Johnson MD [address] [place] [address] [place] [address] Referral ID Status Reason Start Date Expiration Date V isits Requested Visits Authorized [id number] Closed Specialty Service Requested 10/08/2023 04/09/2025 1 1 Encounter Details Date Type Department Care Team (Latest Contact Info) Description 10/24/2023 11:12 AM EDT - 10/24/2023 11:59 PM EDT Hospital Encounter [place] [address] Aysha Johnson MD [address] [place] [address] Lung nodule Discharge Disposition: Home Social History [...] directed. 05/02/2020 fluticasone propionate (FLONASE) 50 mcg/actuation [place], Suspension 1 spray daily. pramipexole (MIRAPEX) 0.125 [...] 04/28/2024 11:00 AM EST Appointment [place] [phone] Molly Cui, [facility] [place] [address] 04/28/2024 2:00 PM EST Office Visit [place] [phone] Molly Cui, [facility] [place] [address] documented as of this encounter Procedures Procedure Name Priority Date/Time Associated Diagnosis Comments NM PET CT SKULL BASE TO MID-THIGH ([facility]) Routine 10/24/2023 12:50 PM EDT Lung nodule documented in this encounter Results * NM PET CT Skull Base to Mid-thigh (10/24/2023 12:50 PM EDT) WORKSTATION ID [id number] RAD Anatomical Region Laterality Modality Positron Emissio [...] who have questions please contact the health day care assistant that requested your imaging first. ? Electronically signed by: Hernan Winkler [facility] ([phone]), at 10/24/2023 3:59 PM Narrative 10/24/2023 3:59 PM EDT EXAMINATION: NM PET CT STANDARD SKULL BASE TO MID-THIGH CLINICAL HISTORY: lll nodule 2 cm (doubled in size); evaluate for malignancy R91.1, Solitary pulmonary nodule TECHNIQUE: Following IV injection of 20-gvehpy-3-deoxyglucose (FDG) a standard uptake of approximately 60 [...] pulmonary nodule TECHNIQUE: Following IV injection of 55-xzurhh-2-deoxyglucose (FDG) astandard uptake of approximately 60 minutes, [...] patients who have questions please contactthe health day care assistant that requested your imaging first. Electronically signed by: Hernan Winkler [facility] ([phone]),at 10/24/2023 3:59 PM Aysha Johnson MD IMG [...] Arm documented in this encounter Care Teams Yoga Teacher Relationship Specialty Start Date End Date Salome Mcarthur, SCRUBBER OPERATOR [address] [place] [address] PCP - General Family Medicine 05/30/15 12/11/23 documented as of this encounter
--- OUTSIDE RECORDS SUMMARY | 2024-04-16 15:39 | XMS_ITS | Encounter Summary ---
Author Organization [facility] Address [facility] [place] [address] Care Team Providers Care Muffler Mechanic Name Role Phone Salome Mcarthur APRN Primary Care Provider [phone] Encounter Details Date Type Department Care Team (Late st Contact Info) Description 12/06/2023 Orders Only Cardiology at [address] [phone] Jac Cheng MD [facility] [place] [address] Chest pain on breathing (Primary Dx) Social History Tobacco Use Types Packs/Day Years Used Date Smoking Tobacco: Never Smokeless Tobacco: Never Alcohol Use Standard Drinks/Week Comments Yes 0 (1 standard drink = 0.6 oz pur e alcohol) once per year [facility] Inpatient Questions Answer Date Recorded Does [...] 04/28/2024 11:00 AM [place] [phone] Molly Cui APRN [facility] [place] [place] [address] 04/28/2024 2:00 PM EST Office [place] [address] Molly Cui APRN [facility] [place] [address] documented as of this encounter Results * Nuclear Pharmacologic Stress Cardiology (12/20/2023 11:37 AM EDT) Anatomical Region Laterality Modality Other Rebeka Orosco MD [facility] documented in this encounter Visit Diagnoses Diagnosis Chest pain on breathing- Primary Painful respiration documented in this encounter Care Teams Muffler Mechanic Relationship Specialty Start Date End Date Salome Mcarthur APRN [address] [place] [address] PCP - General Family Medicine 05/30/15 12/11/23 documented as of this encounter
--- OUTSIDE RECORDS SUMMARY | 2024-04-16 15:39 | XMS_ITS | Encounter Summary ---
Author Organization [facility] Address [facility] [place] [address] Care Team Providers Care Referral Manager Name Role Phone Aysha Johnson MD Primary Care Provider [phone] Reason for Visit * Diagnostic Test (Routine) - Closed Specialty Diagnoses / Procedures Referred By Contac t Referred To Contact Radiology Diagnoses Chest pain on breathing Procedures NM Pharmacologic Stress CT Component NM Exercise Stress CT Component NM Pharmacologic Stress and Rest Myocardial Perfusion [facility] Jac Cheng MD [facility] [place] [address] [facility] Nuclear Med [address] [place] [phone] Referral ID Status Reason Start Date Expiration Date V isits Requested Visits Authorized [id number] Closed Specialty Service Requested 12/06/2023 06/05/2025 1 1 Encounter Details Date Type Department Care Team (Latest Contact Info) Description 12/20/2023 9:44 AM EDT - 12/20/2023 12:14 PM EDT Hospital Encounter [place] [address] Rebeka Orosco MD [facility] [place] [address] Chest pain on breathing Discharge [...] type, unspecified whether angina present, unspecified whether [place] or transplanted heart Place 1 tablet under the tongue every 5 minutes as needed for Chest pain. 25 tablet 12 12/13/2023 ranolazine ER (Ranexa) 500 mg ER 12 hr tabletIndications:Luis nary artery disease, unspecified vessel or lesion type, unspecified whether angina present, unspecified whether [place] or transplanted heart Take 1 tablet by mouth 2 times daily. 60 tablet 12/13/2023 isosorbide mononitrate CR (Imdur) 30 mg ER 24 hr tablet Take 30 mg by mouth 2 times daily. lsuwderkaw-pewzqxa-ywn feine (Fiorinal) 50-325-40 mg tablet Take 1 [...] directed. 05/02/2020 fluticasone propionate (FLONASE) 50 mcg/actuation [place], Suspension 1 spray daily. pramipexole (MIRAPEX) 0.125 [...] 04/28/2024 11:00 AM EST [place] [phone] Molly Cui, [facility] [place] [address] 04/28/2024 2:00 PM EST Office [place] [phone] Molly Cui, [facility] [place] [address] documented as of this encounter Procedures Procedure Name Priority Date/Time Associated Diagnosis Comments NM PHARMACOLOGIC STRESS CT COMPONENT Routine 12/20/2023 11:45 AM EDT Chest pain on breathing documented in this encounter Results * NM Pharmacologic Stress CT Component (12/20/2023 11:45 AM EDT) WORKSTATION ID [id number] [facility] [place] Anatomical Region Laterality Modality Nuclear Medicine Impressions [...] have questions please contact the health care worker that requested your imaging first. ? Electronically signed by: Ed Benavides MD, [facility] ([phone]), at 12/20/2023 1:52 PM Narrative 12/20/2023 1:52 [...] who have questions please contactthe health care worker that requested your imaging first. Rebeka Orosco [...] mCi documented in this encounter Care Teams Referral Manager Relationship Specialty Start Date End Date Aysha Johnson MD [address] [place] [address] PCP - General Family Medicine 12/12/23 documented as of this encounter
--- OUTSIDE RECORDS SUMMARY | 2024-04-16 15:39 | XMS_ITS | Encounter Summary ---
Author Organization [facility] [place] [address] Care Team Providers Care Dental Hygiene Administrative Assistant Name Role Phone Salome Mcarthur APRN Primary Care Provider [phone] Reason for Referral * Consultation (Routine) - Closed Specialty Diagnoses / Procedures Referred By Contac t Referred To Contact Cardiology Diagnoses JIMENEZ (dyspnea on exertion) Chest pain, unspecified type Aortic valve stenosis, etiology of cardiac valve disease unspecified Procedures CARDIAC CATHETERIZATION Leland Ortega MD [address] [place] [address] [facility] Cardiology [address] [place] [phone] Referral ID Status Reason Start Date Expiration Date V isits Requested Visits Authorized [id number] Closed Consult, Test & Treat 11/27/2023 11/26/2024 1 1 Encounter Details Date Type Department Care Team (Latest Contact Info) Description 11/27/2023 Transcribe Orders eDH Incoming Referrals [phone] Leland Ortega MD [address] [place] [address] [place], [place] [address] JIMENEZ (dyspnea on exertion); Chest pain, unspecified [...] 04/28/2024 11:00 AM EST Appointment [place] [address] Molly Cui, [facility] [place] [address] 04/28/2024 2:00 PM EST Office Visit [place] [address] Molly Cui, [facility] [place] [address] Scheduled Referrals Name Type Priority Associated Diagnoses [...] unspecified documented in this encounter Care Teams Dental Hygiene Administrative Assistant Relationship Specialty Start Date End Date Salome Mcarthur APRN [address] [place] [address] PCP - General Family Medicine 05/30/15 12/11/23 documented as of this encounter
--- OUTSIDE RECORDS SUMMARY | 2024-04-16 15:39 | XMS_ITS | Encounter Summary ---
[place] [address] Care Team Providers Care Wood Gluer Name Role Phone Salome Mcarthur APRN Primary Care Provider [phone] Reason for Referral * Consultation (Routine) - Closed Specialty Diagnoses / Procedures Referred By Contac t Referred To Contact Hematology and Oncology Diagnoses Thrombocytopenia Leland Ortega MD [address] [place] [address] [facility] [place] [address] [place] [address] Referral ID Status Reason Start Date Expiration Date V isits Requested Visits Authorized [id number] Closed Consult, Test & Treat 12/03/2023 12/02/2024 1 1 Encounter Details Date Type Department Care Team (Late Contact Info) Description 12/03/2023 Transcribe Orders eDH Incoming Referrals [phone] Leland Ortega MD [address] [place], [place] [address] Thrombocytopenia Social History Tobacco Use Types Packs/Day [...] 04/28/2024 11:00 AM EST [place] [address] Molly Cui, [facility] [place] [address] 04/28/2024 2:00 PM EST Office [place] [address] Molyl Cui, [facility] [place] [address] Scheduled Referrals Name Type Priority Associated Diagnoses Order Schedule Referral to Hematology and Oncology Outpatient Referral Routine Thrombocytopenia Ordered: 12/03/2023 documented as of this encounter Visit Diagnoses Diagnosis Thrombocytopenia Thrombocytopenia, unspecified documented in this encounter Care Teams Wood Gluer Relationship Specialty Start Date End Date Salome Mcarthur ANIMAL HUMANE AGENT SUPERVISOR [address] [place] [address] PCP - General Family Medicine 05/30/15 12/11/23 documented as of this encounter
--- OUTSIDE RECORDS SUMMARY | 2024-04-16 15:39 | XMS_ITS | Encounter Summary ---
[place] [address] Care Team Providers Care Direct Care Counselor Name Role Phone Salome Mcarthur APRN Primary Care Provider [phone] Reason for Visit * Diagnostic Test (Routine) - Closed Specialty Diagnoses / Procedures Referred By Jose bermudez Referred To Contact Radiology Diagnoses Lung nodule Procedures NM PET CT Skull Base to Mid-thigh Aysha Johnson MD [address] [place] [address] [place] [address] Referral ID Status Reason Start Date Expiration Date V isits Requested Visits Authorized [id number] Closed Specialty Service Requested 10/08/2023 04/09/2025 1 1 Encounter Details Date Type Department Care Team (Latest Contact Info) Description 10/24/2023 11:12 AM EDT - 10/24/2023 11:59 PM EDT Hospital En[place] [address] Aysha Johnson MD [address] [place] [address] Discharge Disposition: Home Social History [...] directed. 05/02/2020 fluticasone propionate (FLONASE) 50 mcg/actuation [place], Suspension 1 spray daily. pramipexole (MIRAPEX) 0.125 [...] 11:00 AM EST Appointment [place] [address] Molly Cui, [facility] [place] [address] 04/28/2024 2:00 PM EST Office Visit [place] [address] Molly Cui, [facility] [place] [address] documented as of this encounter Procedures Procedure Name Priority Date/Time Associated Diagnosis Comments NM PET CT SKULL BASE TO MID-THIGH ([facility]) Routine 10/24/2023 12:50 PM EDT Lung nodule POCT GLUCOSE Routine 10/24/2023 11:33 AM EDT documented in this encounter Results * POCT Glucose (10/24/2023 11:33 AM EDT) Glucose, POC 108 65 - 199 mg/dL [facility] Comment: Supplemental ranges: <140 mg/dL before meals <180 mg/dL all other times of the day Blood 10/24/2023 11:3 3 AM EDT 10/24/2023 11:33 AM EDT Aysha Johnson MD POINT [place] [address] documented in this encounter Visit Diagnoses Not on filedocumented in this encounter Care Teams Direct Care Counselor Relationship Specialty Start Date End Date Salome Mcarthur, BENCH WORKER HOLLOW HANDLE [address] [place] [address] PCP - General Family Medicine 05/30/15 12/11/23 documented as of this encounter
--- OUTSIDE RECORDS SUMMARY | 2024-04-16 15:39 | XMS_ITS | Encounter Summary ---
Author Organization [facility] Address [facility] [place] [address] Care Team Providers Care Leveling Machine Operator Name Role Phone Aysha Johnson MD Primary Care Provider [phone] Reason for Visit * Consultation (Routine) - Closed Specialty Diagnoses / Procedures Referred By Contruth t Referred To Contact Cardiology Diagnoses JIMENEZ (dyspnea on exertion) Chest pain, unspecified type Aortic valve stenosis, etiology of cardiac valve disease unspecified Procedures CARDIAC CATHETERIZATION Leland Ortega MD [address] [place] [address] [facility] Cardiology [address] [place] [phone] Referral ID Status Reason Start Date Expiration Date V isits Requested Visits Authorized [id number] Closed Consult, Test & Treat 11/27/2023 11/26/2024 1 1 Encounter Details Date Type Department Care Team (Late st Contact Info) Description 12/13/2023 10:00 AM EDT Office Visit Cardiology at [address] [address] Yonathan Gibson MD [facility] DR CARDIOLOGY [place], [place] [id number] Coronary artery disease, unspecified vessel or lesion type, unspecified whether angina present, unspecified whether buckland or transplanted heart Social History Tobacco Use [...] from the original note were not included. [facility] [place] [address] CARDIOLOGY OUTPATIENT PROGRESS NOTE PRIMARY CARE PROVIDER: Aysha Johnson MD REFERRING PROVIDER: Aysha Johnson PROBLEM LIST: Patient Active Problem List Diagnosis Hepatic cirrhosis Added automatically from request for surgery [id number] NAFLD (nonalcoholic fatty liver disease) Mixed incontinence Bladder cancer S/P hysterectomy Vaginal lesion MEDICATIONS: Current Outpatient Medications Medication Sig Dispense Refill qyhbjrrian-enxojci-mjhqpjcm (Fiorinal) 50-325-40 mg tablet Take 1 tablet [...] as directed. fluticasone propionate (FLONASE) 50 mcg/actuation [place], Suspension 1 spray daily. pramipexole (MIRAPEX) 0.125 [...] on file Social History Narrative Lives in [place], [place] with her of 10 years. She [...] Abdomen: Nondistended. Soft. Nontender. Extremities: No edema. SOLAR PHOTOVOLTAIC ELECTRICIAN: Normal mentation. Psych: Appropriate affect. Labs: Lab [...] 04/28/2024 11:00 AM [place] [address] Molly Cui [facility] [place] [address] 04/28/2024 2:00 PM EST Office [place] [address] Molly Cui, [facility] [place] [address] Scheduled Orders Name Type Priority Associated Diagnoses Orde r Schedule EKG 12 Lead ECG Routine Coronary artery disease, unspecified vessel or lesion type, unspecified whether angina present, unspecified whether [place] or transplanted heart Expected: 12/13/2023, Expires: 06/13/2024 documented as of this encounter Visit Diagnoses Diagnosis Coronary artery disease, unspecified vessel or lesion type, unspecified whether angina present, unspecified whether buck[place] or transplanted heart documented in this encounter Care Teams Leveling Machine Operator Relationship Specialty Start Date End Date Aysha Johnson MD [address] [place] [address] PCP - General Family Medicine 12/12/23 documented as of this encounter
--- OUTSIDE RECORDS SUMMARY | 2024-04-16 15:39 | XMS_ITS | Encounter Summary ---
[place] [address] Care Team Providers Care Mail Superintendent Name Role Phone Salome Mcarthur APRN Primary Care Provider [phone] Reason for Referral * Consultation (Routine) - Closed Specialty Diagnoses / Procedures Referred By Contruth t Referred To Contact Hematology and Oncology Diagnoses Thrombocytopenia Leland Ortega MD [address] [place] [address] [facility] [place] [address] [place] [address] Referral ID Status Reason Start Date Expiration Date V isits Requested Visits Authorized [id number] Closed Consult, Test & Treat 11/21/2023 11/20/2024 1 1 Encounter Details Date Type Department Care Team (Late st Contact Info) Description 11/21/2023 Transcribe Orders [place]ematology [place] [address] Leland Ortega MD [address] [place], [place] [address], [place] [address] Thrombocytopenia Social History Tobacco Use Types Packs/Day [...] 04/28/2024 11:00 AM [place] [address] Molly Cui, [facility] [place] [address] 04/28/2024 2:00 PM EST Office [place] [address] Molly Cui, [facility] [place] [address] Scheduled Referrals Name Type Priority Associated Diagnoses Order Schedule Referral to Hematology and Oncology Outpatient Referral Routine Thrombocytopenia Ordered: 11/21/2023 documented as of this encounter Visit Diagnoses Diagnosis Thrombocytopenia Thrombocytopenia, unspecified documented in this encounter Care Teams Mail Superintendent Relationship Specialty Start Date End Date Salome Mcarthur CLINICAL INFORMATICS SPEC [address] [place] [address] PCP - General Family Medicine 05/30/15 12/11/23 documented as of this encounter
--- OUTSIDE RECORDS SUMMARY | 2024-04-16 15:39 | XMS_ITS | Encounter Summary ---
[place] [address] Care Team Providers Care Social Media Strategist Name Role Phone Salome Mcarthur APRN Primary Care Provider [phone] Encounter Details Date Type Department Care Team (Late st Contact Info) Description 10/08/2023 Telephone [place] [address] Leyla Daily Social History Tobacco [...] 04/28/2024 11:00 AM EST [place] [address] Molly Cui [facility] [place] [address] 04/28/2024 2:00 PM EST Office [place] [address] Molly Cui [facility] [place] [address] documented as of this encounter Visit Diagnoses Not on filedocumented in this encounter Care Teams Social Media Strategist Relationship Specialty Start Date End Date Salome Mcarthur APRN [address] [place] [address] PCP - General Family Medicine 05/30/15 12/11/23 documented as of this encounter
--- OUTSIDE RECORDS SUMMARY | 2024-04-16 15:39 | XMS_ITS | Encounter Summary ---
Author Organization [facility] [place] [address] Care Team Providers Care Hl7 Developer Name Role Phone Aysha Johnson MD Primary Care Provider [phone] Encounter Details Date Type Department Care Team (Late st Contact Info) Description 12/16/2023 Telephone Cardiology at [address] [phone] Katelynn Fan, RN Social History Tobacco Use Types Packs/Day Years Used Date Smoking Tobacco: Never Smokeless Tobacco: Never Alcohol Use Standard Drinks/Week Comments Yes 0 (1 standard drink = 0.6 oz pur e alcohol) once per year [facility] Inpatient Questions Answer Date Recorded Does [...] [facility] gone to the [facility] in [facility]. Patient requested change. Home number left for call back. RTC to patient stating prescriptions for both NTG and ranolazine were approved and prescriptions sent to the [facility] in [facility]. Patient verbalizes understanding and has no further questions or concerns at this time. Katelynn Fan RN, BSN Ambulatory Cardiology [facility], [facility] [phone] Katelynn Fan RN, BSN Ambulatory Cardiology Clinic, [facility] [phone] documented in this encounter Plan of Treatment Upcoming Encounters Date Type Department Care Team (Late st Contact Info) Description 04/28/2024 11:00 AM [place] [address] Molly Cui, [facility] [place] [address] 04/28/2024 2:00 PM EST Office [place] [address] Molly Cui, [facility] [place] [address] documented as of this encounter Visit Diagnoses Not on filedocumented in this encounter Care Teams Hl7 Developer Relationship Specialty Start Date End Date Aysha Johnson MD [address] [address] PCP - General Family Medicine 12/12/23 documented as of this encounter
--- OUTSIDE RECORDS SUMMARY | 2024-04-16 15:39 | XMS_ITS | Encounter Summary ---
Author Organization [facility] [place] [address] Care Team Providers Care Medical Biller Name Role Phone aSlome Mcarthur APRN Primary Care Provider [phone] Encounter Details Date Type Department Care Team [...] 04/28/2024 11:00 AM EST Appointment [place] [address] Molly Cui INSTRUMENT INSPECTOR [facility] [place] [address] 04/28/2024 2:00 PM EST Office [place] [address] Molly Cui APRN [facility] [place] [address] documented as of this encounter Visit Diagnoses Not on filedocumented in this encounter Care Teams Medical Biller Relationship Specialty Start Date End Date Salome Mcarthur APRN [address] [place] [address] PCP - General Family Medicine 05/30/15 12/11/23 documented as of this encounter
--- OUTSIDE RECORDS SUMMARY | 2024-04-16 15:39 | XMS_ITS | Encounter Summary ---
Author Organization [facility] [place] [address] Care Team Providers Care Reed Dipper Name Role Phone Aysha Johnson MD Primary Care Provider [phone] Encounter Details Date Type Department Care Team [...] 04/28/2024 11:00 AM EST [place] [address] Molly Cui APRN [facility] [place] [address] 04/28/2024 2:00 PM EST Office [place] [address] Molly Cui APRN [facility] [place] [address] documented as of this encounter Visit Diagnoses Not on filedocumented in this encounter Care Teams Reed Dipper Relationship Specialty Start Date End Date Aysha Johnson MD [address] [place] [address] PCP - General Family Medicine 12/12/23 documented as of this encounter
--- OUTSIDE RECORDS SUMMARY | 2024-04-16 15:40 | XMS_ITS | Encounter Summary ---
Author Organization [place] [address] Care Team Providers Care Director Of Online Merchandising Name Role Phone Salome Mcarthur APRN Primary Care Provider [phone] Encounter Details Date Type Department Care Team (Late st Contact Info) Description 01/15/2022 Telephone [place] [address] Gabriela Wright Social History Tobacco Use Types [...] 04/28/2024 11:00 AM [place] [address] Molly Cui [facility] [place] [address] 04/28/2024 2:00 PM EST Office [place] [address] Molly Cui [facility] [place] [address] documented as of this encounter Visit Diagnoses Not on filedocumented in this encounter Care Teams Director Of Online Merchandising Relationship Specialty Start Date End Date Wohlberg, Salome B, DEPUTY SHERIFF BAILIFF [address] [place] [address] PCP - General Family Medicine 05/30/15 12/11/23 documented as of this encounter
--- OUTSIDE RECORDS SUMMARY | 2024-04-16 15:40 | XMS_ITS | Encounter Summary ---
Author Organization [facility] Address [facility] [place] [address] Care Team Providers Care Dredge Engineer Name Role Phone Salome Mcarthur APRN Primary Care Provider [phone] Encounter Details Date Type Department Care Team (Late st Contact Info) Description 01/08/2023 Telephone [place] [address] Kyle July Social History Tobacco Use Types [...] - 01/08/2023 12:22 PM EDT Milka Corbett [id number] Diagnosis/Indication: cirrhosis with varices Please review patient [...] your procedure. Who will likely be your local intermodal truck driver for the procedure? *Please Verify the [...] 04/28/2024 11:00 AM EST [place] [address] Molly Cui, [facility] [place] [address] 04/28/2024 2:00 PM EST Office [place] [address] Molly Cui, [facility] [place] [address] documented as of this encounter Visit Diagnoses Not on filedocumented in this encounter Care Teams Dredge Engineer Relationship Specialty Start Date End Date Salome Mcarthur APRN [address] [place] [address] PCP - General Family Medicine 05/30/15 12/11/23 documented as of this encounter
--- OUTSIDE RECORDS SUMMARY | 2024-04-16 15:40 | XMS_ITS | Encounter Summary ---
Author Organization [facility] [place] [address] Care Team Providers Care Devulcanizer Tender Name Role Phone Salome Mcarthur APRN Primary Care Provider [phone] Encounter Details Date Type Department Care Team [...] 04/28/2024 11:00 AM [place] [address] Molly Cui MARKETING TECHNOLOGY SPECIALIST [facility] [place] [address] 04/28/2024 2:00 PM EST Office [place] [address] Molly Cui [facility] [place] [address] documented as of this encounter Visit Diagnoses Not on filedocumented in this encounter Care Teams Devulcanizer Tender Relationship Specialty Start Date End Date Salome Mcarthur APRN [address] [address] PCP - General Family Medicine 05/30/15 12/11/23 documented as of this encounter
--- OUTSIDE RECORDS SUMMARY | 2024-04-16 15:40 | XMS_ITS | Encounter Summary ---
Author Organization [facility] [place] [address] Care Team Providers Care Trimmer Buffing Wheel Name Role Phone Salome Mcarthur APRN Primary Care Provider [phone] Reason for Visit * Auth/Cert Specialty Diagnoses / Procedures Referred By Jose bermudez Referred To Contact Diagnoses cirrhosis with varices, reassess. EGD ordered 05/2021 but not scheduled yet, new order with higher urgency placed. Procedures PRO UPPER GI ENDOSCOPY, DIAGNOSTIC EGD, UPPER GI ENDOSCOPY Ml Ayala MD [facility] [place] [address] [facility] Referral ID Status Reason Start Date Expiration Date Visits Re quested Visits Authorized [id number] 1 1 Encounter Details Date Type Department Care Team (Late st Contact Info) Description 01/31/2022 11:30 AM EDT - 01/31/2022 12:00 PM EDT [place] [address] Leland Ramos MD [facility] [place] [address] EGD, UPPER GI ENDOSCOPY (WRVU 2.09) Social [...] the day after the procedure, use an exvf-ekb-qhjecks spray to numb your throat. Sucking on [...] occurs, please contact your Doctor. Please call [phone] before 8pm Mon-Fri with problems, questions or concerns. If you call after 8pm or on weekends, call the Hospital at [phone] and ask to speak to the Marketing Research Analyst relationship advisor and the stroboroma operator will contact that person for you. When should you call for help? Call [phone] anytime you think you may need emergency [...] any problems. Where can you learn more? [facility] View your After Visit Summary and more online at [email or web address] If you would like to provide [...] cost to you. Content Version: 12.2 ?? [id number] [employer]. Care instructions adapted under license by [facility]. If you have questions about a medical condition or this instruction, always ask your healthcare professional. [employer] disclaims any warranty or liability for your [...] directed. 05/02/2020 fluticasone propionate (FLONASE) 50 mcg/actuation [place], Suspension 1 spray daily. pramipexole (MIRAPEX) [...] 04/28/2024 11:00 AM [place] [address] Molly Cui, [facility] [place] [address] 04/28/2024 2:00 PM EST Office [place] [address] Molly Cui, [facility] [place] [address] documented as of this encounter Procedures Procedure Name Priority Date/Time Associated Diagnosis Comments Upper GI Endoscopy, Diagnostic (42771) 01/31/2022 11:11 AM EDT Hepatic cirrhosis, unspecified hepatic cirrhosis type, unspecified whether ascites present POCT GLUCOSE Routine 01/31/2022 10:51 AM EDT UPPER GI ENDOSCOPY Routine 01/31/2022 10 :36 AM EDT documented in this encounter Results * POCT Glucose (01/31/2022 10:51 AM EDT) Glucose, POC 123 65 - 199 mg/dL [facility] Comment: Supplemental ranges: <140 mg/dL before meals <180 mg/dL all other times of the day Blood 01/31/2022 10:5 1 AM EDT 01/31/2022 10:51 AM EDT Leland Ramos MD POINT OF CARE TEST O RDERABLES [facility] [place] [address] * UPPER GI ENDOSCOPY (01/31/2022 10:36 AM EDT) [facility] UPPER GI ENDOSCOPY [facility] Endoscopy Procedure Date: 01/31/2022 10:36 AM ? Patient Name: Milka Corbett ? N: [id number] ? Date of : 1940 ? Age: 81 ? Order #: [id number] ? Instrument Name: [id number] ? Procedure: ? Upper GI endoscopy Indications: [...] ? physician, the nurse and the ? industrial machine system technician in the pre-procedure ? area in [...] RN) documented in this encounter Care Teams Trimmer Buffing Wheel Relationship Specialty Start Date End Date Salome Mcarthur, PLASTIC WELDING MACHINE OPERATOR [address] [place] [address] PCP - General Family Medicine 05/30/15 12/11/23 documented as of this encounter
--- OUTSIDE RECORDS SUMMARY | 2024-04-16 15:40 | XMS_ITS | Encounter Summary ---
Author Organization [facility] Address [facility] [place] [address] Care Team Providers Care Copy Center Associate Name Role Phone Salome Mcarthur APRN Primary Care Provider +1 [phone] Encounter Details Date Type Department Care Team (Latest Contact Info) Description 12/05/2022 11:03 AM EDT - 12/05/2022 11:59 PM EDT Hospital [place] [phone] Molly Wallis GAS APPLIANCE ADJUSTER [facility] [place] [address] Hepatic cirrhosis, unspecified hepatic cirrhosis type, unspecified [...] directed. 05/02/2020 fluticasone propionate (FLONASE) 50 mcg/actuation [place], Suspension 1 spray daily. pramipexole (MIRAPEX) 0.125 [...] 04/28/2024 11:00 AM EST [place] [address] Molly Wallis, [facility] [place] [address] 04/28/2024 2:00 PM EST Office [place] [address] Molly Wallis, GAS APPLIANCE ADJUSTER [facility] [place] [address] documented as of this encounter Procedures Procedure [...] who have questions, please contact the health after school caregiver that requested your imaging first. ?Avila Keith, Staff Physician Electronically Signed Final Report ?? 12/05/2022 11:56 am Narrative 12/05/2022 11:57 AM EDT Abdominal ? (Signed Final 12/05/2022 11:56 am) PATIENT INFO: ID #: ? [id number] ?: ??[birth year] (82 yrs)(F) Name: ? MILKA MENDIETA ?Visit Date: 12/05/2022 11:36 am PERFORMED BY: Attending: ?Avila Keith MD Performed By: ? Sanjeev Marshall RDMS Referred By: ?MOLLY WALLIS Secondary Phy.: ?? MOLLY WALLIS GAS APPLIANCE ADJUSTER Location: ? [place] [facility] - [facility] Protocol - Abdominal ?99153 Limited Survey Single Organ or Quadrant - [id number] INDICATIONS: cirrhosis, screen for hcc ------ LIVER: [...] 12/05/2022 11:56 am) PATIENT INFO: ID #: [id number] : 42 (82 yrs)(F) Name: MILKA MENDIETA Visit Date: 12/05/2022 11:36 am PERFORMED BY: Attending: Avila Keith MD Performed By: Sanjeev Marshall RDMS Referred By: MOLLY WALLIS Secondary Phy.: MOLLY WALLIS APRN Location: [place] SERVICE(S) PROVIDED: [facility] - Hepatology Protocol - Abdominal 54796 Limited Survey Single Organ or Quadrant - [id number] INDICATIONS: cirrhosis, screen for hcc ------ LIVER: [...] who have questions, please contact the health after school caregiver that requested your imaging first. Avila Keith, Staff Physician Electronically Signed Final Report 12/05/2022 11:56 am Molly Wallis APRN IMG GEN ORDERAB LES documented in this encounter Visit Diagnoses Diagnosis Hepatic cirrhosis, unspecified hepatic cirrhosis type, unspecified whether ascites present documented in this encounter Care Teams Copy Center Associate Relationship Specialty Start Date End Date Salome Mcarthur APRN [address] [place] [address] PCP - General Family Medicine 05/30/15 12/11/23 documented as of this encounter
--- OUTSIDE RECORDS SUMMARY | 2024-04-16 15:40 | XMS_ITS | Encounter Summary ---
Author Organization [facility] [place] [address] Care Team Providers Care Stuntman Name Role Phone Salome Mcarthur APRN Primary Care Provider +[phone] Encounter Details Date Type Department Care Team (Late st Contact Info) Description 01/03/2022 Telephone [place] [phone] Kyle July Social History Tobacco Use Types [...] - 01/03/2022 9:03 AM EDT Milka Corbett [id number] Diagnosis/Indication: cirrhosis with varices, reassess. EGD ordered [...] No 18. You must have a responsible democrat who will drive you to your procedure, stay on campus for the entire duration of your procedure, and drive you home from your procedure. Who will likely be your party bus driver for the procedure? *Please Verify the [...] 04/28/2024 11:00 AM EST Appointment [place] [address] Molly Cui, [facility] [place] [address] 04/28/2024 2:00 PM EST Office [place] [address] Molly Cui, [facility] [place] [address] documented as of this encounter Visit Diagnoses Not on filedocumented in this encounter Care Teams Stuntman Relationship Specialty Start Date End Date Salome Mcarthur APRN [address] [address] PCP - General Family Medicine 05/30/15 12/11/23 documented as of this encounter
--- OUTSIDE RECORDS SUMMARY | 2024-04-16 15:40 | XMS_ITS | Encounter Summary ---
Author Organization [facility] Address [facility] [place] [address] Care Team Providers Care Utility Aircrewman Name Role Phone Salome Mcarthur APRN Primary Care Provider Encounter Details Date Type Department Care Team (Latest Contact Info) Description 11/29/2021 9:45 AM EDT - 11/29/2021 11:59 PM EDT Hospital En[place] [phone] Molly Wallis ROLLER STAKER [facility] [place] [address] Hepatic cirrhosis, unspecified hepatic cirrhosis type, unspecified [...] directed. 05/02/2020 fluticasone propionate (FLONASE) 50 mcg/actuation [place], Suspension 1 spray daily. pramipexole (MIRAPEX) 0.125 [...] 04/28/2024 11:00 AM EST Appoint[place] [address] Molly Wallis, [facility] [place] [address] 04/28/2024 2:00 PM EST Office [place] [address] Molly Wallis, [facility] [place] [address] documented as of this encounter Procedures Procedure [...] who have questions, please contact the health animal care service worker that requested your imaging first. ?Avila Keith, Staff Physician Electronically Signed Final Report ?? 11/29/2021 10:30 am Narrative 11/29/2021 10:30 AM EDT Abdominal ? (Signed Final 11/29/2021 10:30 am) PATIENT INFO: ID #: ? [id number] ?: ??42 (81 yrs)(F) Name: ? MILKA MENDIETA ?Visit Date: 11/29/2021 10:17 am PERFORMED BY: Performed By: ? Dea Mata RDMS Attending: ?Avila Keith MD Referred By: ?MOLLY WALLIS Secondary Phy.: ?? MOLLY WALLIS ROLLER STAKER Location: ? [place] SERVICE[facility]S) [facility]: [facility] - Hepatology Protocol - Abdominal ?42879 Limited Survey Single Organ or Quadrant - [id number] INDICATIONS: cirrhosis, screen for hcc COMPARISON: US: [...] 11/29/2021 10:30 am) PATIENT INFO: ID #: [id number] : 42 (81 yrs)(F) Name: MILKA MENDIETA Visit Date: 11/29/2021 10:17 am PERFORMED BY: Performed By: Dea Mata RDMS Attending: Avila Keith MD Referred By: MOLLY WALLIS [facility] Phy.: MOLLY WALLIS APRN Location: [place] SERVICE[facility]S) [facility] - Hep[facility] Protocol - Abdominal 97664 Limited Survey Single Organ or Quadrant - [id number] INDICATIONS: cirrhosis, screen for hcc COMPARISON: US: [...] who have questions, please contact the health animal care service worker that requested your imaging first. Avila Keith, Staff Physician Electronically Signed Final Report 11/29/2021 10:30 am Molly Wallis APRN [facility] US GEN ORDERAB LES documented in this encounter Visit Diagnoses Diagnosis Hepatic cirrhosis, unspecified hepatic cirrhosis type, unspecified whether ascites present documented in this encounter Care Teams Utility Aircrewman Relationship Specialty Start Date End Date Salome Mcarthur APRN [address] [place] [address] PCP - General Family Medicine 05/30/15 12/11/23 documented as of this encounter
--- OUTSIDE RECORDS SUMMARY | 2024-04-16 15:40 | XMS_ITS | Encounter Summary ---
Author Organization [facility] [place] [address] Care Team Providers Care Cabbage Salter Name Role Phone Salome Mcarthur APRN Primary Care Provider [phone] Encounter Details Date Type Department Care Team (Late st Contact Info) Description 12/05/2022 1:30 PM EDT Office [place] [phone] Molly Wallis APRN [facility] [place] [address] Hepatic cirrhosis, unspecified hepatic cirrhosis type, unspecified [...] Section of Gastroenterology [place] [address] Copy: Salome Mcarthur APRN [address] / [place] [address] Time spent reviewing records prior to this [...] 04/28/2024 11:00 AM EST [place] [phone] Molly Wallis [facility] [place] [address] 04/28/2024 2:00 PM EST Office [place] [phone] Molly Wallis, [facility] [address] Scheduled Orders Name Type Priority Associated Diagnoses Orde r Schedule ENDOSCOPY CASE REQUEST: EGD, UPPER GI ENDOSCOPY (WRVU 2.09) Procedures Routine Hepatic cirrhosis, unspecified hepatic cirrhosis type, unspecified whether ascites present Ordered: 12/05/2022 documented as of this encounter Results * Prothrombin Time (08/08/2023 12:19 PM EDT) Prothrombin Time 12.2 9.4 - 12.5 sec [facility] ORDERAB LES [facility] [place] [address] * (ABNORMAL) Comprehensive metabolic panel (non-fasting) (08/08/2023 12:19 PM EDT) Glucose 110 65 - 199 mg/dL [facility] Comment:Diabetes: >=200 mg/d L plus symptoms Blood Urea Nitrogen 19(H) 8 - 18 mg/dL [facility] Creatinine 0.72 0.70 - 1.20 mg/dL [facility] Sodium 144 135 - 145 mmol/L [facility] Potassium 4.1 3.5 - 5.0 mmol/L [facility] Comment: Please note: ??Patients with WBC >100,000 may have falsely elevated Potassium levels. ??For accurate Potassium quantification in these patients send serum separator tube (gold top) for subsequent determinations. ??Contact the Clinical Chemistry Laboratory if there are any questions. Chloride 101 98 - 107 mmol/L [facility] Carbon Dioxide 28 22 - 31 mmol/L [facility] Anion Gap 15 5 - 15 mmol/L [facility] Calcium 10.0 8.5 - 10.5 mg/dL [facility] Protein, Total 7.0 6.1 - 8.0 g/dL [facility] Albumin 4.2 3.2 - 5.2 g/dL [facility] Aspartate Aminotransferase 34(H) 0 - 30 unit/L [facility] Alanine Aminotransferase 33(H) 0 - 30 unit/L [facility] Alkaline Phosphatase 121(H) 35 - 105 unit/L [facility] Bilirubin, Total 0.5 0.2 - 1.3 mg/dL [facility] Est Glomerular Filtration Rate 83 >=60 mL/min/1. 73 m?? [facility] Comment: This patient's estimated [...] Agency Comment Spec In Lab Molly Wallis LAND LEASING EXAMINER CHEMISTRY ORDERABL ES [facility] [place] [address] * US Abdomen Limited Hepatology Protocol (08/08/2023 11:45 AM EDT) WORKSTATION ID [id number] RAD Anatomical Region Laterality Modality Abdomen Ultrasound [...] who have questions, please contact the health emergency care attendant that requested your imaging first. ?Alisha Grove, Staff Physician Electronically Signed Final Report ?? 08/08/2023 01:31 pm Narrative 08/08/2023 1:32 PM EDT Abdominal ? (Signed Final 08/08/2023 01:31 pm) PATIENT INFO: ID #: ? [id number] ?: ??42 (83 yrs)(F) Name: ? MILKA MENDIETA ?Visit Date: 08/08/2023 11:27 am PERFORMED BY: Attending: ?Perfecto GALLO, Alisha Carpio Resident: ? Stevie GALLO, [facility] Performed By: ? Ayaka Biswas RDMS Referred By: ?MOLLY WALLIS Location: ? [place] [facility] - Hepatology Protocol - Abdominal ?95286 Limited Survey Single Organ or Quadrant - [id number] INDICATIONS: cirrhosis, screen for hcc, splenomegaly ------ [...] 08/08/2023 01:31 pm) PATIENT INFO: ID #: [id number] : 42 (83 yrs)(F) Name: MILKA MENDIETA Visit Date: 08/08/2023 11:27 am PERFORMED BY: Attending: Alisha Grove MD Resident: Stevie GALLO [facility] Performed By: Ayaka Biswas RDMS Referred By: MOLLY WALLIS Location: [place] SERVICE(S) PROVIDED: [facility] - Hepatology Protocol - Abdominal 33262 Limited Survey Single Organ or Quadrant - [id number] INDICATIONS: cirrhosis, screen for hcc, splenomegaly ------ [...] who have questions, please contact the health emergency care attendant that requested your imaging first. Alisha Grove, Staff Physician Electronically Signed Final Report 08/08/2023 01:31 pm Molly Wallis APRN [facility] GEN ORDERAB LES documented in this encounter Visit Diagnoses Diagnosis Hepatic cirrhosis, unspecified hepatic cirrhosis type, unspecified whether ascites present Hepatic cirrhosis, unspecified hepatic cirrhosis type, unspecified whether ascites present documented in this encounter Care Teams Cabbage Salter Relationship Specialty Start Date End Date Salome Mcarthur APRN [address] [place] [address] PCP - General Family Medicine 05/30/15 12/11/23 documented as of this encounter
--- OUTSIDE RECORDS SUMMARY | 2024-04-16 15:40 | XMS_ITS | Encounter Summary ---
Author Organization [facility] Address [facility] [place] [address] Care Team Providers Care Training Officer Name Role Phone Salome Mcarthur APRN Primary Care Provider [phone] Encounter Details Date Type Department Care Team (Latest Contact Info) Description 06/06/2022 11:07 AM EST - 06/06/2022 11:59 PM [facility] Hospital [place] [phone] Molly Wallis PROGRAM TRAINER [facility] [place] [address] Hepatic cirrhosis, unspecified hepatic cirrhosis type, unspecified [...] directed. 05/02/2020 fluticasone propionate (FLONASE) 50 mcg/actuation [place], Suspension 1 spray daily. pramipexole (MIRAPEX) 0.125 [...] 04/28/2024 11:00 AM EST [place] [address] Molly Wallis, [facility] [place] [address] 04/28/2024 2:00 PM EST Office Visit Gastroenterology at [facility] [place] [address] Molly Wallis, [facility] [place] [address] documented as of this encounter Procedures Procedure [...] ascites. Electronically signed by: Avila Keith MD, [facility] ([phone]), at 06/06/2022 11:48 AM Thank you for letting us participate in the care of this patient. If you are a health care provider and have any questions regarding this report, please contact the number above. For patients who have questions, please contact the health housekeeper caregiver that requested your imaging first. ? Avila Keith, Staff Physician Electronically Signed Final Report ?? 06/06/2022 11:54 am Narrative 06/06/2022 11:55 AM EST Abdominal ? (Signed Final 06/06/2022 11:54 am) PATIENT INFO: ID #: ? [id number] ?: ??42 (81 yrs)(F) Name: ? MILKA MENDIETA ?Visit Date: 06/06/2022 11:20 am PERFORMED BY: Attending: ?Avila Keith MD Performed By: ? Sosa Joshi RDMS Referred By: ?MOLLY WALLIS Secondary Phy.: ?? MOLLY WALLIS PROGRAM TRAINER Location: ? [place] [facility] - Hep[facility] Protocol - Abdominal ?32627 Limited Survey Single Organ or Quadrant - [id number] INDICATIONS: cirrhosis, screen for hcc ------ LIVER: [...] 06/06/2022 11:54 am) PATIENT INFO: ID #: [id number] : 42 (81 yrs)(F) Name: MILKA MENDIETA Visit Date: 06/06/2022 11:20 am PERFORMED BY: Attending: Avila Keith MD Performed By: Sosa Joshi RDMS Referred By: MOLLY WALLIS [facility] Phy.: MOLLY WALLIS APRN Location: [place] SERVICE(S) PROVIDED: [facility] - Hepatology Protocol - Abdominal 26335 Limited Survey Single Organ or Quadrant - [id number] INDICATIONS: cirrhosis, screen for hcc ------ LIVER: [...] ascites. Electronically signed by: Avila Keith MD, [facility] ([phone]), at 06/06/2022 11:48 AM Thank you for letting us participate in the care of this patient. If you are a health care provider and have any questions regarding this report, please contact the number above. For patients who have questions, please contact the health housekeeper caregiver that requested your imaging first. Avila Keith, Staff Physician Electronically Signed Final Report 06/06/2022 11:54 am Molly Wallis APRN IMG US GEN ORDERAB LES documented in this encounter Visit Diagnoses Diagnosis Hepatic cirrhosis, unspecified hepatic cirrhosis type, unspecified whether ascites present documented in this encounter Care Teams Training Officer Relationship Specialty Start Date End Date Salome Mcarthur, PROGRAM TRAINER [address] [place] [address] PCP - General Family Medicine 05/30/15 12/11/23 documented as of this encounter
--- OUTSIDE RECORDS SUMMARY | 2024-04-16 15:40 | XMS_ITS | Encounter Summary ---
[place] [address] Care Team Providers Care Group Home Supervisor Name Role Phone Salome Mcarthur APRN Primary Care Provider [phone] Reason for Visit * Auth/Cert (Routine) Specialty Diagnoses / Procedures Referred By Jose t Referred To Contact Diagnoses Unspecified cirrhosis of liver cirrhosis with varices Procedures PRO UPPER GI ENDOSCOPY, DIAGNOSTIC PRO ANESTH, UGI ENDOSCOPY NOS EGD, UPPER GI ENDOSCOPY (WRVU 2.09) Juliette Chauhan MD [facility] [place] [address] [facility] Referral ID Status Reason Start Date Expiration Date Visits Re quested Visits Authorized [id number] 1 1 Encounter Details Date Type Department Care Team (Late st Contact Info) Description 01/23/2023 11:15 AM EDT - 01/23/2023 11:45 AM EDT [place] [address] Juliette Chauhan MD [facility] [place] [address] EGD, UPPER GI ENDOSCOPY (WRVU 2.09) Social [...] the day after the procedure, use an wyvj-rim-eiiwhmw spray to numb your throat. Sucking on [...] occurs, please contact your Doctor. Please call [phone] before 8pm Mon-Fri with problems, questions or concerns. If you call after 8pm or on weekends, call the Hospital at [phone] and ask to speak to the Filter Worker configuration specialist and the spooler operator automatic will contact that person for you. When should you call for help? Call [phone] anytime you think you may need emergency [...] any problems. Where can you learn more? [facility] View your After Visit Summary and more online at [email or web address] If you would like to provide feedback about your hospital experience, please call the Office of Patient and Family Relations at . If you have received this After Visit Summary in error, please immediately return it in person to the department, or notify the [facility] Privacy Office by calling toll free at between the hours of 8AM and 5PM to arrange for our retrieval of the documents at no cost to you. Content Version: 12.2 ?? [id number] [employer]. Care instructions adapted under license by [facility]. If you have questions about a medical condition or this instruction, always ask your healthcare professional. [employer] disclaims any warranty or liability for your [...] 04/28/2024 11:00 AM [place] [address] Molly Cui APRN [facility] [place] [address] 04/28/2024 2:00 PM EST Office Visit Gastroenterology at [facility] [address] Molly Cui APRN [facility] [place] [address] documented as of this encounter Procedures Procedure Name Priority Date/Time Associated Diagnosis Comments Upper GI Endoscopy, Diagnostic (15836) 01/23/2023 12:23 PM EDT Hepatic cirrhosis, unspecified hepatic cirrhosis type, unspecified whether ascites present UPPER GI ENDOSCOPY Routine 01/23/2023 12 :11 PM EDT documented in this encounter Results * UPPER GI ENDOSCOPY (01/23/2023 12:11 PM EDT) [facility] Signature UPPER GI ENDOSCOPY [facility] Endoscopy Procedure Date: 01/23/2023 12:11 PM ? Patient Name: Milka Corbett ? N: [id number] ? Date of : 1940 ? Age: 82 ? Order #: [id number] ? Instrument Name: [id number] ? Procedure: ? Upper GI endoscopy Indications: [...] 01/23/2023 12:1 1 PM EDT Salome Mcarthur [employer] documented in [...] RN) documented in this encounter Care Teams Group Home Supervisor Relationship Specialty Start Date End Date Salome Mcarthur, NUT SHELLER [address] [place] [address] PCP - General Family Medicine 05/30/15 12/11/23 documented as of this encounter
--- OUTSIDE RECORDS SUMMARY | 2024-04-16 15:40 | XMS_ITS | Encounter Summary ---
Author Organization [facility] [place] [address] Care Team Providers Care Carpet Loom Fixer Name Role Phone Salome Mcarthur APRN Primary Care Provider [phone] Reason for Visit * Reason Comments Medication Refill Encounter Details Date Type Department Care Team (Late Contact Info) Description 04/28/2023 [place] [phone] Molly Cui [facility] [place] [address] Gastroesophageal reflux disease without esophagitis Social History [...] 04/28/2024 11:00 AM EST [place] [address] Molly Cui [facility] [place] [address] 04/28/2024 2:00 PM EST Office [place] [address] Molly Cui [facility] [place] [address] documented as of this encounter Visit Diagnoses Diagnosis Gastroesophageal reflux disease without esophagitis Esophageal reflux documented in this encounter Care Teams Carpet Loom Fixer Relationship Specialty Start Date End Date Salome Mcarthur, COMMUNITY DEVELOPMENT OFFICER [address] [address] PCP - General Family Medicine 05/30/15 12/11/23 documented as of this encounter
--- OUTSIDE RECORDS SUMMARY | 2024-04-16 15:40 | XMS_ITS | Encounter Summary ---
Author Organization [facility] Address [facility] [place] [address] Care Team Providers Care Foreign Food Cook Specialty Name Role Phone Salome Mcarthur APRN Primary Care Provider +1 [phone] Encounter Details Date Type Department Care Team (Latest Contact Info) Description 08/08/2023 11:20 AM EDT - 08/08/2023 11:59 PM EDT Hospital [place] [phone] Molly Wallis FINANCIAL PLANNER [facility] [place] [address] Hepatic cirrhosis, unspecified hepatic cirrhosis type, unspecified [...] directed. 05/02/2020 fluticasone propionate (FLONASE) 50 mcg/actuation [place], Suspension 1 spray daily. pramipexole (MIRAPEX) 0.125 [...] 04/28/2024 11:00 AM [place] [address] Molly Wallis FINANCIAL PLANNER [facility] [place] [address] 04/28/2024 2:00 PM EST Office [place] [phone] Molly Wallis FINANCIAL PLANNER [facility] [place] [address] documented as of this encounter Procedures Procedure Name Priority Date/Time Associated Diagnosis Comments US ABDOMEN LIMITED HEPATOLOGY PROTOCOL Routine 08/08/2023 11:45 AM EDT Hepatic cirrhosis, unspecified hepatic cirrhosis type, unspecified whether ascites present documented in this encounter Results * US Abdomen Limited Hepatology Protocol (08/08/2023 11:45 AM EDT) WORKSTATION ID [id number] RAD Anatomical Region Laterality Modality Abdomen Ultrasound [...] questions, please contact the health patient care provider that requested your imaging first. ?Alisha J. Perfecto, Staff Physician Electronically Signed Final Report ?? 08/08/2023 01:31 pm Narrative 08/08/2023 1:32 PM EDT Abdominal ? (Signed Final 08/08/2023 01:31 pm) PATIENT INFO: ID #: ? [id number] ?: ??[birth year] (83 yrs)(F) Name: ? MILKA MENDIETA ?Visit Date: 08/08/2023 11:27 am PERFORMED BY: Attending: ?Perfecto GALLO, Alisha Carpio Resident: ? Stevie GALLO, [facility] Performed By: ? Ayaka Biswas RDMS Referred By: ?MOLLY WALLIS Location: ? [place] [facility] - Hepatology Protocol - Abdominal ?06972 Limited Survey Single Organ or Quadrant - [id number] INDICATIONS: cirrhosis, screen for hcc, splenomegaly ------ [...] 08/08/2023 01:31 pm) PATIENT INFO: ID #: [id number] : 42 (83 yrs)(F) Name: MILKA MENDIETA Visit Date: 08/08/2023 11:27 am PERFORMED BY: Attending: Alisha Grove MD Resident: Mode Hubbard MD Performed By: Ayaka Biswas RDMS Referred By: MOLLY WALLIS Location: [place] [facility] - Hepatology Protocol - Abdominal 49969 Limited Survey Single Organ or Quadrant - [id number] INDICATIONS: cirrhosis, screen for hcc, splenomegaly ------ [...] questions, please contact the health patient care provider that requested your imaging first. Alisha Grove, Staff Physician Electronically Signed Final Report 08/08/2023 01:31 pm [facility] GEN ORDERAB LES documented in this encounter Visit Diagnoses Diagnosis Hepatic cirrhosis, unspecified hepatic cirrhosis type, unspecified whether ascites present documented in this encounter Care Teams Foreign Food Cook Specialty Relationship Specialty Start Date End Date Salome Mcarthur APRN [address] [place] [address] PCP - General Family Medicine 05/30/15 12/11/23 documented as of this encounter
--- OUTSIDE RECORDS SUMMARY | 2024-04-16 15:40 | XMS_ITS | Encounter Summary ---
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 Procedures PRO UPPER GI ENDOSCOPY, DIAGNOSTIC PRO ANESTH, UGI ENDOSCOPY NOS EGD, UPPER GI ENDOSCOPY (WRVU 2.09) Juliette Chauhan MD [facility] [place] [address] [facility] Referral ID Status Reason Start Date Expiration Date Visits Re quested Visits Authorized [id number] 1 1 Encounter Details Date Type Department Care Team (Latest Contact Info) Description 01/23/2023 11:52 AM EDT - 01/23/2023 1:44 PM EDT Hospital Encounter [place] [address] Juliette Chauhan MD [facility] [place] [address] Discharge Disposition: Home Social History Tobacco Use [...] the day after the procedure, use an tfnd-jmm-afmvrut spray to numb your throat. Sucking on [...] occurs, please contact your Doctor. Please call [phone] before 8pm Mon-Fri with problems, questions or concerns. If you call after 8pm or on weekends, call the Hospital at [phone] and ask to speak to the [employer] application support lead and the rivet hole machine operator will contact that person for you. When should you call for help? Call [phone] anytime you think you may need emergency [...] any problems. Where can you learn more? [facility] View your After Visit Summary and more online at [email or web address] If you would like to [...] cost to you. Content Version: 12.2 ?? [id number] [employer]. Care instructions adapted under license by [facility]. If you have questions about a medical condition or this instruction, always ask your healthcare professional. [employer] disclaims any warranty or liability for your [...] directed. 05/02/2020 fluticasone propionate (FLONASE) 50 mcg/actuation [place], Suspension 1 spray daily. pramipexole (MIRAPEX) 0.125 [...] 04/28/2024 11:00 AM EST [place] [address] Molly Cui, [facility] [place] [address] 04/28/2024 2:00 PM EST Office [place] [phone] Molly Cui, [facility] [place] [address] documented as of this encounter Procedures Procedure Name Priority Date/Time Associated Diagnosis Comments Upper GI Endoscopy, Diagnostic (13284) 01/23/2023 12:23 PM EDT Hepatic cirrhosis, unspecified hepatic cirrhosis type, unspecified whether ascites present UPPER GI ENDOSCOPY Routine 01/23/2023 12 :11 PM EDT documented in this encounter Results * UPPER GI ENDOSCOPY (01/23/2023 12:11 PM EDT) [facility] Signature UPPER GI ENDOSCOPY [facility] Endoscopy Procedure Date: 01/23/2023 12:11 PM ? Patient Name: Milka Corbett ? Date of : 1940 ? Age: 82 ? Order #: [id number] ? Instrument Name: [id number] ? Procedure: ? Upper GI endoscopy Indications: [...] 01/23/2023 12:1 1 PM EDT Salome Mcarthur TRANSCRIPT EVALUATOR GENERAL SURGICAL OR DERABLES PROVATION documented in [...] RN) documented in this encounter Care Teams Ordnance Artificer Relationship Specialty Start Date End Date Salome Mcarthur, TRANSCRIPT EVALUATOR [address] [place] [address] PCP - General Family Medicine 05/30/15 12/11/23 documented as of this encounter
--- OUTSIDE RECORDS SUMMARY | 2024-04-16 15:40 | XMS_ITS | Encounter Summary ---
Author Organization [facility] [place] [address] Care Team Providers Care Marketing Operations Intern Name Role Phone Salome Mcarthur APRN Primary Care Provider [phone] Encounter Details Date Type Department Care Team (Latest Contact Info) Description 06/01/2021 10:00 AM EST Laboratory Appointment Lab [address] [place] [address] Hepatic cirrhosis, unspecified hepatic cirrhosis [...] 04/28/2024 11:00 AM EST [place] [address] Molly Cui [facility] [place] [address] 04/28/2024 2:00 PM EST Office [place] [address] Molly Cui [facility] [place] [address] documented as of this encounter [...] 10:31 AM EST) Neutrophil % 61.2 % [facility] Neutrophil Absolute 4.16 1.70 - 6.10 x10(3)/[facility] LABORAT[facility] Lymph % 23.8 % [facility] Lymphocytes Abs 1.6 0.9 - 3.2 x10(3)/[facility] LABORATORY Monocyte % 12.5 % [facility] Monocyte Abs 0.8 0.3 - 0.9 x10(3)/[facility] LABORATORY Eos % 1.8 % [facility] Eosinophils Abs 0.1 0.0 - 0.4 x10(3)/[facility] LABORATORY Basophil % 0.4 % [facility] Baso Absolute 0.0 0.0 - 0.1 x10(3)/[facility] LABORATORY Immature Gran % 0.30 % [facility] Comment: Immature granulocytes(IG's)percentage and absolute count will include metamyelocytes, myelocytes, and promyelocytes. Blood smears from CBCs yielding IG's will be scanned manually for concordance. If this scan disagrees with the automated IG or if promyelocytes are noted, a manual differential will be performed. Immature Gran Absolute 0.02 0.00 - 0.04 x10(3)/[facility] LABORATORY Blood 06/01/2021 10:3 1 AM EST 06/01/2021 10:41 AM EST Narrative Resulting Agency Comment Spec In Lab Molly Cui MANUFACTURING SR ENGINEER HEMATOLOGY ORDERAB LES [facility] [place] [address] * (ABNORMAL) Hemogram (06/01/2021 10:31 AM EST) White Blood Cell 6.8 4.0 - 9.5 x10(3)/[facility] LABORATORY Red Blood Cell 4.20 4.00 - 5.21 x10(6)/[facility]OR[facility] Hemoglobin 12.8 11.7 - 15.5 g/dL [facility] Hematocrit 38.6 35.7 - 45.8 % [facility] Mean Cell Volume 91.9 82.6 - 94.4 fL [facility] Mean Cell Hemoglobin 30.5 27.1 - 32.0 pg [facility] Mean Cell Hemoglobin Concentration 33.2 31.7 - 35.0 g/dL [facility] Platelet 93(L) 145 - 357 x10(3)/[facility] LABORATORY RDW Standard Deviation 44.9 37.0 - 46.0 fL [facility] RDW coefficient of variation 13.2 11.5 - 14.1 % [facility] Mean Platelet Volume 11.9 7.6 - 12.9 fL [facility] NRBC% auto 0.0 % [facility] NRBC Absolute 0.000 0.000 - 0.000 x10(3)/[facility]ORAT[facility] Blood 06/01/2021 10:3 1 AM EST 06/01/2021 10:41 AM EST Narrative Resulting Agency Comment Spec In Lab Molly Cui [place] HEMATOLOGY ORDERAB LES [facility] [place] [address] * (ABNORMAL) Comprehensive metabolic panel (non-fasting) (06/01/2021 10:31 AM EST) Glucose 187 65 - 199 mg/dL [facility] Comment:Diabetes: >=200 mg/d L plus symptoms Blood Urea Nitrogen 16 8 - 18 mg/dL [facility] Creatinine 0.61(L) 0.70 - 1.20 mg/dL [facility] Sodium 139 135 - 145 mmol/L [facility] Potassium 4.3 3.5 - 5.0 mmol/L [facility] Comment: Please note: ??Patients with WBC >100,000 may have falsely elevated Potassium levels. ??For accurate Potassium quantification in these patients send serum separator tube (gold top) for subsequent determinations. ??Contact the Clinical Chemistry Laboratory if there are any questions. Chloride 102 98 - 107 mmol/L [facility] Carbon Dioxide 25 22 - 31 mmol/L [facility] Anion Gap 12 5 - 15 mmol/L [facility] Calcium 10.0 8.5 - 10.5 mg/dL [facility] Protein, Total 6.8 6.1 - 8.0 g/dL [facility] Albumin 4.3 3.2 - 5.2 g/dL [facility] Aspartate Aminotransferase 45(H) 0 - 30 unit/L [facility] Alanine Aminotransferase 60(H) 0 - 30 unit/L [facility] Alkaline Phosphatase 95 35 - 105 unit/L [facility] Bilirubin, Total 0.7 0.2 - 1.3 mg/dL [facility] Est Glomerular Filtration Rate 86 >=60 mL/min/1. 73 m?? [facility] Comment: This patient? s [...] APRN CHEMISTRY ORDERABL ES Performing Organization Address [facility] Phone Number [facility] [place] [address] * Prothrombin Time (06/01/2021 10:31 AM EST) Prothrombin Time 12.1 9.4 - 12.5 sec [facility] [...] APRN HEMATOLOGY ORDERAB LES Performing Organization Address [facility] [[email or web address]] Co id Phone Number [facility] [place] [address] documented in this encounter Visit Diagnoses Diagnosis Hepatic cirrhosis, unspecified hepatic cirrhosis type, unspecified whether ascites present documented in this encounter Care Teams Marketing Operations Intern Relationship Specialty Start Date End Date Salome Mcarthur MANUFACTURING SR ENGINEER [address] [place] [address] PCP - General Family Medicine 05/30/15 12/11/23 documented as of this encounter
--- OUTSIDE RECORDS SUMMARY | 2024-04-16 15:40 | XMS_ITS | Encounter Summary ---
Author Organization [facility] [place] [address] Care Team Providers Care Electroformer Name Role Phone Salome Mcarthur APRN Primary Care Provider [phone] Encounter Details Date Type Department Care Team (Late st Contact Info) Description 08/08/2023 1:30 PM EDT Office [place] [phone] Molly Cui APRN [facility] [place] [address] Hepatic cirrhosis, unspecified hepatic cirrhosis type, unspecified [...] pain in her chest, She saw a roll weigher, considered R heart cath and patient declined. Gets pain after climbing stairs, pain went away when she stopped moving. Has had acid reflux previously, taking Omeprazole 2 pills, at same time of day. She had an upper endoscopy in January 2023 which did not show any signs of ongoing reflux. Taking Metoprolol, prescribed by roll weigher this winter. Tomorrow she is seeing her [...] Vitals: 08/08/23 1338 BP: 129/56 BP Location ([facility]): Right arm Patient Position: Sitting BP [...] to do with PCP, Aysha Johnson in [place]. -Follow-up in 6 months with labs and ultrasound Molly Cui APRN Section of Gastroenterology [place] [address] Copy: Salome Mcarthur APRN [address] / [place] [address] Time spent reviewing records prior to this [...] 04/28/2024 11:00 AM EST Appointment Ultrasound at [place] [phone] Molly Cui APRN [facility] [address] 04/28/2024 2:00 PM EST Office Visit Gastroenterology at [place] [phone] Molly Cui MULTIGRAPH OPERATOR [facility] [place] [address] Scheduled Orders Name Type Priority Associated Diagnoses [...] present documented in this encounter Care Teams Electroformer Relationship Specialty Start Date End Date Salome Mcarthur APRN [address] [place] [address] PCP - General Family Medicine 05/30/15 12/11/23 documented as of this encounter
--- OUTSIDE RECORDS SUMMARY | 2024-04-16 15:40 | XMS_ITS | Encounter Summary ---
Author Organization [facility] [place] [address] Care Team Providers Care Biochemistry Teacher Name Role Phone Salome Mcarthur APRN Primary Care Provider [phone] Encounter Details Date Type Department Care Team (Late st Contact Info) Description 11/29/2021 1:00 PM EDT Office [place] [phone] Molly Wallis APRN [facility] [place] [address] Hepatic cirrhosis, unspecified hepatic cirrhosis type, unspecified [...] PT and they did 2 visits with [place] procedure and her vertigo is now [...] daily. ??? fluticasone propionate (FLONASE) 50 mcg/actuation [place], Suspension 1 spray daily. ??? pramipexole (MIRAPEX) [...] Wallis APRN Section of Gastroenterology [place] [address] Copy: Salome Mcarthur APRN [address] / [place] [address] Time spent reviewing records prior to this [...] 04/28/2024 11:00 AM EST Appointment Ultrasound at [place] [phone] Molly Wallis APRN [facility] [place] [address] 04/28/2024 2:00 PM EST Office [place] [phone] Molly Wallis MASTER CONTROL ENGINEER [facility] [place] [place] [address] Scheduled Orders Name Type Priority Associated Diagnoses Orde r Schedule ENDOSCOPY CASE REQUEST: EGD, UPPER GI ENDOSCOPY Procedures Routine Hepatic cirrhosis, unspecified hepatic cirrhosis type, unspecified whether ascites present Ordered: 11/29/2021 documented as of this encounter Results * (ABNORMAL) Prothrombin Time (06/06/2022 12:46 PM EST) Prothrombin Time 12.9(H) 9.4 - 12.5 sec [facility] International Normalization Ratio 1.1 [facility] Comment: An INR <2.0 indicates [...] Agency Comment Spec In Lab Molly Wallis MASTER CONTROL ENGINEER HEMATOLOGY ORDERAB LES [facility] [place] [address] * (ABNORMAL) Comprehensive metabolic panel (non-fasting) (06/06/2022 12:46 PM EST) Glucose 107 65 - 199 mg/dL [facility] Comment:Diabetes: >=200 mg/d L plus symptoms Blood Urea Nitrogen 15 8 - 18 mg/dL [facility] Creatinine 0.66(L) 0.70 - 1.20 mg/dL [facility] Sodium 141 135 - 145 mmol/L [facility] Potassium 4.2 3.5 - 5.0 mmol/L [facility] Comment: Please note: ??Patients with WBC >100,000 may have falsely elevated Potassium levels. ??For accurate Potassium quantification in these patients send serum separator tube (gold top) for subsequent determinations. ??Contact the Clinical Chemistry Laboratory if there are any questions. Chloride 104 98 - 107 mmol/L [facility] Carbon Dioxide 27 22 - 31 mmol/L [facility] Anion Gap 10 5 - 15 mmol/L [facility] Calcium 10.4 8.5 - 10.5 mg/dL [facility] Protein, Total 6.9 6.1 - 8.0 g/dL [facility] Albumin 4.3 3.2 - 5.2 g/dL [facility] Aspartate Aminotransferase 33(H) 0 - 30 unit/L [facility] Alanine Aminotransferase 34(H) 0 - 30 unit/L [facility] Alkaline Phosphatase 98 35 - 105 unit/L [facility] Bilirubin, Total 0.6 0.2 - 1.3 mg/dL [facility] Est Glomerular Filtration Rate 89 >=60 mL/min/1. 73 m?? [facility] Comment: This patient's estimated GFR [...] APRN CHEMISTRY ORDERABL ES Performing Organization Address City/State/[facility] Co de Phone Number [facility] [place] [address] * US Abdomen Limited Hepatology Protocol (06/06/2022 [...] who have questions, please contact the health long term care social worker that requested your imaging first. ? Avila Keith, Staff Physician Electronically Signed Final Report ?? 06/06/2022 11:54 am Narrative 06/06/2022 11:55 AM EST Abdominal ? (Signed Final 06/06/2022 11:54 am) PATIENT INFO: ID #: ? [id number] ?: ??[birth year] (81 yrs)(F) Name: ? MILKA MENDIETA ?Visit Date: 06/06/2022 11:20 am PERFORMED BY: Attending: ?Avila Keith MD Performed By: ? Sosa Joshi RDMS Referred By: ?MOLLY WALLIS Secondary Phy.: ?? MOLLY WALLIS MASTER CONTROL ENGINEER Location: ? [place] [facility] Hep[facility] Protocol - Abdominal ?27302 Limited Survey Single Organ or Quadrant - [id number] INDICATIONS: cirrhosis, screen for hcc ------ LIVER: [...] 06/06/2022 11:54 am) PATIENT INFO: ID #: [id number] : [birth year] (81 yrs)(F) Name: MILKA MENDIETA Visit Date: 06/06/2022 11:20 am PERFORMED BY: Attending: Avila Keith MD Performed By: Sosa Joshi RDMS Referred By: MOLLY WALLIS Secondary Phy.: MOLLY WALLIS APRN Location: [place] SERVICE[facility]S) [facility] - Hepatology Protocol - Abdominal 79135 Limited Survey Single Organ or Quadrant - [id number] INDICATIONS: cirrhosis, screen for hcc ------ LIVER: [...] who have questions, please contact the health long term care social worker that requested your imaging first. Avila Keith, Staff Physician Electronically Signed Final Report 06/06/2022 11:54 am Molly Wallis APRN IMG GEN ORDERAB LES documented in this encounter Visit Diagnoses Diagnosis Hepatic cirrhosis, unspecified hepatic cirrhosis type, unspecified whether ascites present Hepatic cirrhosis, unspecified hepatic cirrhosis type, unspecified whether ascites present documented in this encounter Care Teams Biochemistry Teacher Relationship Specialty Start Date End Date Salome Mcarthur APRN [address] [place] [address] PCP - General Family Medicine 05/30/15 12/11/23 documented as of this encounter
--- OUTSIDE RECORDS SUMMARY | 2024-04-16 15:40 | XMS_ITS | Encounter Summary ---
Author Organization [facility] Address [facility] [place] [address] Care Team Providers Care English Lecturer Name Role Phone Salome Mcarthur APRN Primary Care Provider [phone] Encounter Details Date Type Department Care Team (Latest Contact Info) Description 06/01/2021 9:30 AM EST - 06/01/2021 11:59 PM [facility] [place] Hospital [place] [phone] Lnai Wallis MAIL LIST LIBRARIAN [facility] [place] [address] Hepatic cirrhosis, unspecified hepatic cirrhosis type, unspecified [...] directed. 05/02/2020 fluticasone propionate (FLONASE) 50 mcg/actuation [place], Suspension 1 spray daily. pramipexole (MIRAPEX) 0.125 [...] 04/28/2024 11:00 AM [place] [phone] Lani Wallis, [facility] [place] [address] 04/28/2024 2:00 PM EST Office [place] [phone] Lani Wallis, [facility] [place] [address] documented as of this encounter Procedures Procedure [...] Electronically signed by: Marilee Hernández MD, [facility] [place] ([phone]), at 06/01/2021 9:55 AM Thank you for letting us participate in the care of this patient. If you are a health care provider and have any questions regarding this report, please contact the number above. For patients who have questions, please contact the health special needs caregiver that requested your imaging first. ?Marilee Hernández-Pepito, Staff Physician Electronically Signed Final Report ?? 06/01/2021 10:01 am Narrative 06/01/2021 10:02 AM EST Abdominal ? (Signed Final 06/01/2021 10:01 am) PATIENT INFO: ID #: ? [id number] ?: ??42 (80 yrs)(F) Name: ? NICK MENDIETA ?Visit Date: 06/01/2021 09:47 am PERFORMED BY: Performed By: ? Lana Gotti RDMS Attending: ?Betty GALLO, Marilee Ragsdale Referred By: ?LANI WALLIS Secondary Phy.: ?? LANI WALLIS MAIL LIST LIBRARIAN Location: ? [place] SERVICE(S) PROVIDED: UABDLIM - Hepatology Protocol - Abdominal ? 84640 Limited Survey Single Organ or Quadrant - [id number] INDICATIONS: cirrhosis, screen for hcc ------ LIVER: [...] 06/01/2021 10:01 am) PATIENT INFO: ID #: [id number] : 42 (80 yrs)(F) Name: NICK MENDIETA Visit Date: 06/01/2021 09:47 am PERFORMED BY: Performed By: Lana Gotti RDMS Attending: Marilee Hernández MD Referred By: LANI WALLIS Secondary Phy.: LANI WALLIS APRN Location: [place] SERVICE(S) [facility]: [facility] - Hepatology Protocol - Abdominal 77581 Limited Survey Single Organ or Quadrant - [id number] INDICATIONS: cirrhosis, screen for hcc ------ LIVER: [...] Electronically signed by: Marilee Hernández MD, [facility] [place] ([phone]), at 06/01/2021 9:55 AM Thank you for letting us participate in the care of this patient. If you are a health care provider and have any questions regarding this report, please contact the number above. For patients who have questions, please contact the health special needs caregiver that requested your imaging first. Marilee Her, Staff Physician Electronically Signed Final Report 06/01/2021 10:01 am Lani Sharron Wallis APRN IMG GEN ORDERAB LES documented in this encounter Visit Diagnoses Diagnosis Hepatic cirrhosis, unspecified hepatic cirrhosis type, unspecified whether ascites present documented in this encounter Care Teams English Lecturer Relationship Specialty Start Date End Date Salome Mcarthur APRN [address] [place] [address] PCP - General Family Medicine 05/30/15 12/11/23 documented as of this encounter
--- OUTSIDE RECORDS SUMMARY | 2024-04-16 15:40 | XMS_ITS | Encounter Summary ---
Author Organization [facility] [address] Care Team Providers Care Veterinary Poultry Inspector Name Role Phone Salome Mcarthur APRN Primary Care Provider [phone] Reason for Visit * Auth/Cert Specialty Diagnoses / Procedures Referred By Jose bermudez Referred To Contact Diagnoses cirrhosis with varices, reassess. EGD ordered 05/2021 but not scheduled yet, new order with higher urgency placed. Procedures PRO UPPER GI ENDOSCOPY, DIAGNOSTIC EGD, UPPER GI ENDOSCOPY Ml Ayala MD [facility] [place] [address] [facility] Referral ID Status Reason Start Date Expiration Date Visits Re quested Visits Authorized [id number] 1 1 Encounter Details Date Type Department Care Team (Latest Contact Info) Description 01/31/2022 10:28 AM EDT - 01/31/2022 1:41 PM EDT Hospital En[place] [address] Leland Ramos MD [facility] [place] [address] Discharge Disposition: Home Social History Tobacco Use [...] the day after the procedure, use an yosw-qpd-eqexgyf spray to numb your throat. Sucking on [...] occurs, please contact your Doctor. Please call [phone] before 8pm Mon-Fri with problems, questions or concerns. If you call after 8pm or on weekends, call the Hospital at [phone] and ask to speak to the Help Desk Consultant occupational medicine physician and the cat operator will contact that person for you. When should you call for help? Call [phone] anytime you think you may need emergency [...] any problems. Where can you learn more? [facility] View your After Visit Summary and more online at [email or web address] If you would like to provide [...] cost to you. Content Version: 12.2 ?? [id number] [facility]. Care instructions adapted under license by [facility]. If you have questions about a medical condition or this instruction, always ask your healthcare professional. [employer] disclaims any warranty or liability for your [...] directed. 05/02/2020 fluticasone propionate (FLONASE) 50 mcg/actuation [place], Suspension 1 spray daily. pramipexole (MIRAPEX) 0.125 [...] 04/28/2024 11:00 AM [place] [address] Molly Cui, [facility] [place] [address] 04/28/2024 2:00 PM EST Office [place] [address] Molly Cui, [facility] [place] [address] documented as of this encounter Procedures Procedure Name Priority Date/Time Associated Diagnosis Comments Upper GI Endoscopy, Diagnostic (49324) 01/31/2022 11:11 AM EDT Hepatic cirrhosis, unspecified hepatic cirrhosis type, unspecified whether ascites present POCT GLUCOSE Routine 01/31/2022 10:51 AM EDT UPPER GI ENDOSCOPY Routine 01/31/2022 10 :36 AM EDT documented in this encounter Results * POCT Glucose (01/31/2022 10:51 AM EDT) Glucose, POC 123 65 - 199 mg/dL [facility] Comment: Supplemental ranges: <140 mg/dL before meals <180 mg/dL all other times of the day Blood 01/31/2022 10:5 1 AM EDT 01/31/2022 10:51 AM EDT Leland Ramos MD POINT OF CARE TEST O RDERABLES Performing Organization Address [facility]/ZIP Co de Phone Number [facility] [place] [address] * UPPER GI ENDOSCOPY (01/31/2022 10:36 AM EDT) [facility] UPPER GI ENDOSCOPY [facility] Endoscopy Procedure Date: 01/31/2022 10:36 AM ? Patient Name: Milka Corbett ? N: [id number] ? Date of : 1940 ? Age: 81 ? Order #: [id number] ? Instrument Name: [id number] ? Procedure: ? Upper GI endoscopy Indications: [...] ? physician, the nurse and the ? geoscience laboratory technician in the pre-procedure ? area in [...] RN) documented in this encounter Care Teams Veterinary Poultry Inspector Relationship Specialty Start Date End Date Salome Mcarthur, LORETO [address] [place] [address] PCP - General Family Medicine 05/30/15 12/11/23 documented as of this encounter
--- OUTSIDE RECORDS SUMMARY | 2024-04-16 15:40 | XMS_ITS | Encounter Summary ---
Author Organization [place] [address] Care Team Providers Care It Professional Name Role Phone Salome Mcarthur APRN Primary Care Provider [phone] Encounter Details Date Type Department Care Team (Late st Contact Info) Description 06/06/2022 2:30 PM EST Office [place] [phone] Molly Wallis APRN [facility] [place] [address] Hepatic cirrhosis, unspecified hepatic cirrhosis type, unspecified [...] Injector ??? fluticasone propionate (FLONASE) 50 mcg/actuation [place], Suspension 1 spray daily. ??? pramipexole (MIRAPEX) [...] Wallis APRN Section of Gastroenterology [place] [address] Copy: Salome Mcarthur APRN [address] / [place] [address] Time spent reviewing records prior to this [...] 04/28/2024 11:00 AM [place] [address] Molly Wallis ESCALATOR ATTENDANT [facility] [place] [address] 04/28/2024 2:00 PM EST Office [place] [address] Molly Wallis ESCALATOR ATTENDANT [facility] [place] [address] documented as of this encounter Results * (ABNORMAL) Prothrombin Time (12/05/2022 12:22 PM EDT) Prothrombin Time 13.2(H) 9.4 - 12.5 sec [facility] International Normalization Ratio 1.2 [facility] Comment: An INR <2.0 indicates [...] Comment Spec In Lab Molly A Basilia ESCALATOR ATTENDANT HEMATOLOGY ORDERAB LES [facility] [place] [address] * (ABNORMAL) Comprehensive metabolic panel (non-fasting) (12/05/2022 12:22 PM EDT) Glucose 114 65 - 199 mg/dL [facility] Comment:Diabetes: >=200 mg/d L plus symptoms Blood Urea Nitrogen 17 8 - 18 mg/dL [facility] Creatinine 0.71 0.70 - 1.20 mg/dL [facility] Sodium 142 135 - 145 mmol/L [facility] Potassium 4.1 3.5 - 5.0 mmol/L [facility] Comment: Please note: ??Patients with WBC >100,000 may have falsely elevated Potassium levels. ??For accurate Potassium quantification in these patients send serum separator tube (gold top) for subsequent determinations. ??Contact the Clinical Chemistry Laboratory if there are any questions. Chloride 105 98 - 107 mmol/L [facility] Carbon Dioxide 28 22 - 31 mmol/L [facility] Anion Gap 9 5 - 15 mmol/L [facility] Calcium 9.7 8.5 - 10.5 mg/dL [facility] Protein, Total 7.0 6.1 - 8.0 g/dL [facility] Albumin 4.2 3.2 - 5.2 g/dL [facility] Aspartate Aminotransferase 33(H) 0 - 30 unit/L [facility] Alanine Aminotransferase 32(H) 0 - 30 unit/L [facility] Alkaline Phosphatase 136(H) 35 - 105 unit/L [facility] Bilirubin, Total 0.6 0.2 - 1.3 mg/dL [facility] Est Glomerular Filtration Rate 85 >=60 mL/min/1. 73 m?? [facility] Comment: This patient's estimated GFR [...] Lab Molly Wallis APRN CHEMISTRY ORDERABL ES [facility] [address] * US Abdomen Limited Hepatology Protocol (12/05/2022 [...] who have questions, please contact the health field care advocate that requested your imaging first. ?Avila Keith, Staff Physician Electronically Signed Final Report ?? 12/05/2022 11:56 am Narrative 12/05/2022 11:57 AM EDT Abdominal ? (Signed Final 12/05/2022 11:56 am) PATIENT INFO: ID #: ? [id number] ?: ??[birth year] (82 yrs)(F) Name: ? MILKA MENDIETA ?Visit Date: 12/05/2022 11:36 am PERFORMED BY: Attending: ?Avila Keith MD Performed By: ? Sanjeev Marshall RDMS Referred By: ?MOLLY WALLIS Secondary Phy.: ?? MOLLY WALLIS ESCALATOR ATTENDANT Location: ? [place] [facility] Protocol - Abdominal ?44527 Limited Survey Single Organ or Quadrant - [id number] INDICATIONS: cirrhosis, screen for hcc ------ LIVER: [...] 12/05/2022 11:56 am) PATIENT INFO: ID #: [id number] : 42 (82 yrs)(F) Name: MILKA MENDIETA Visit Date: 12/05/2022 11:36 am PERFORMED BY: Attending: Avila Keith MD Performed By: Sanjeev Marshall RDMS Referred By: MOLLY WALLIS Secondary Phy.: MOLLY WALLIS APRN Location: [place] SERVICE(S) PROVIDED: [facility] - Hepatology Protocol - Abdominal 80466 Limited Survey Single Organ or Quadrant - [id number] INDICATIONS: cirrhosis, screen for hcc ------ LIVER: [...] who have questions, please contact the health field care advocate that requested your imaging first. Avila Keith, Staff Physician Electronically Signed Final Report 12/05/2022 11:56 am Molly Wallis APRN IMG GEN ORDERAB LES documented in this encounter Visit Diagnoses Diagnosis Hepatic cirrhosis, unspecified hepatic cirrhosis type, unspecified whether ascites present Hepatic cirrhosis, unspecified hepatic cirrhosis type, unspecified whether ascites present documented in this encounter Care Teams It Professional Relationship Specialty Start Date End Date Salome Mcarthur APRN [address] [place] [address] PCP - General Family Medicine 05/30/15 12/11/23 documented as of this encounter
--- OUTSIDE RECORDS SUMMARY | 2024-04-16 15:40 | XMS_ITS | Encounter Summary ---
[place] [address] Care Team Providers Care Orthotic Fitter Name Role Phone Salome Mcarthur APRN Primary Care Provider [phone] [phone] Encounter Details Date Type Department Care Team (Late st Contact Info) Description 05/13/2023 Telephone [place] [address] Lisette Nicholson Social History Tobacco [...] 04/28/2024 11:00 AM [place] [phone] Molly Cui APRN [facility] [place] [address] 04/28/2024 2:00 PM EST Office [place] [address] Molly Cui APRN [facility] [place] [address] documented as of this encounter Visit Diagnoses Not on filedocumented in this encounter Care Teams Orthotic Fitter Relationship Specialty Start Date End Date Salome Mcarthur APRN [address] [place] [address] PCP - General Family Medicine 05/30/15 12/11/23 documented as of this encounter
--- OUTSIDE RECORDS SUMMARY | 2024-04-16 15:40 | XMS_ITS | Encounter Summary ---
Author Organization [facility] [place] [address] Care Team Providers Care Union Representative Name Role Phone Salome Mcarthur APRN Primary Care Provider +[phone] Encounter Details Date Type Department Care Team [...] 11:00 AM EST Appointment [place] [address] Molly Cui CNA LTC [facility] [place] [address] 04/28/2024 2:00 PM EST Office Visit [place] [address] Molly Cui [facility] [place] [address] documented as of this encounter Visit Diagnoses Not on filedocumented in this encounter Care Teams Union Representative Relationship Specialty Start Date End Date Salome Mcarthur APRN [address] [address] PCP - General Family Medicine 05/30/15 12/11/23 documented as of this encounter
--- OUTSIDE RECORDS SUMMARY | 2024-04-16 15:40 | XMS_ITS | Encounter Summary ---
Author Organization [facility] [place] [address] Care Team Providers Care Fire Lieutenant Name Role Phone Salome Mcarthur APRN Primary Care Provider [phone] Encounter Details Date Type Department Care Team (Latest Contact Info) Description 09/12/2021 Transcribe [place] [address] Salome Mcarthur APRN [address] [place], [place] [id number] Type II diabetes mellitus with neurological manifestations; [...] 04/28/2024 11:00 AM EST [place] [address] Molly Cui SAFETY PIN ASSEMBLING MACHINE OPERATOR [facility] [place] [address] 04/28/2024 2:00 PM EST Office [place] [address] Molly Cui SAFETY PIN ASSEMBLING MACHINE OPERATOR [facility] [place] [address] documented as of this encounter Visit Diagnoses Diagnosis Type II diabetes mellitus with neurological manifestations Type II or unspecified type diabetes mellitus with neurological manifestations, not stated as uncontrolled Microalbuminuria Proteinuria [place] cirrhosis Alcoholic cirrhosis of liver Encephalopathy, unspecified documented in this encounter Care Teams Fire Lieutenant Relationship Specialty Start Date End Date Salome Mcarthur APRN [address] [place] [address] PCP - General Family Medicine 05/30/15 12/11/23 documented as of this encounter
--- OUTSIDE RECORDS SUMMARY | 2024-04-16 15:40 | XMS_ITS | Encounter Summary ---
Author Organization [facility] [place] [address] Care Team Providers Care Sonography Technologist Name Role Phone Salome Mcarthur APRN Primary Care Provider [phone] Encounter Details Date Type Department Care Team (Latest Contact Info) Description 06/06/2022 12:30 PM EST Laboratory Appointment Lab [address] [place] [address] Hepatic cirrhosis, unspecified hepatic cirrhosis [...] AM [place] [address] Molly Cui [facility] [place] [address] 04/28/2024 2:00 PM EST Office [place] [address] Molly Cui [facility] [place] [address] documented as of this encounter [...] 12:46 PM EST) Neutrophil % 55.9 % [facility] Neutrophil Absolute 3.25 1.70 - 6.10 x10(3)/[facility] Lymph % 30.1 % [facility] Lymphocytes Abs 1.8 0.9 - 3.2 x10(3)/[facility] Monocyte % 11.4 % [facility] Monocyte Abs 0.7 0.3 - 0.9 x10(3)/[facility] Eos % 1.9 % [facility] Eosinophils Abs 0.1 0.0 - 0.4 x10(3)/[facility] Basophil % 0.5 % [facility] Baso Absolute 0.0 0.0 - 0.1 x10(3)/[facility] Immature Gran % 0.20 % [facility] Comment: Immature granulocytes(IG's)percentage and absolute count will include metamyelocytes, myelocytes, and promyelocytes. Blood smears from CBCs yielding IG's will be scanned manually for concordance. If this scan disagrees with the automated IG or if promyelocytes are noted, a manual differential will be performed. Immature Gran Absolute 0.01 0.00 - 0.04 x10(3)/[facility] Blood 06/06/2022 12:4 6 PM EST 06/06/2022 12:49 PM EST Narrative Resulting Agency Comment Spec In Lab Molly Cui ANIMAL CONTROL SPECIALIST HEMATOLOGY ORDERAB LES Performing Organization Address City/[facility] Co de Phone Number [facility] [place] [address] * (ABNORMAL) Hemogram (06/06/2022 12:46 PM EST) White Blood Cell 5.8 4.0 - 9.5 x10(3)/[facility] Red Blood Cell 4.22 4.00 - 5.21 x10(6)/[facility] Hemoglobin 12.7 11.7 - 15.5 g/dL [facility] Hematocrit 38.7 35.7 - 45.8 % [facility] Mean Cell Volume 91.7 82.6 - 94.4 fL [facility] Mean Cell Hemoglobin 30.1 27.1 - 32.0 pg [facility] Mean Cell Hemoglobin Concentration 32.8 31.7 - 35.0 g/dL [facility] Platelet 85(L) 145 - 357 x10(3)/[facility] RDW Standard Deviation 45.1 37.0 - 46.0 fL [facility] RDW coefficient of variation 13.3 11.5 - 14.1 % [facility] Mean Platelet Volume 11.2 7.6 - 12.9 fL [facility] NRBC% auto 0.0 % [facility] NRBC Absolute 0.000 0.000 - 0.000 x10(3)/[facility] Blood 06/06/2022 12:4 6 PM EST 06/06/2022 12:49 PM EST Narrative Resulting Agency Comment Spec In Lab Molly A Basilia ANIMAL CONTROL SPECIALIST HEMATOLOGY ORDERAB LES Performing Organization Address City/[facility]/ZIP Co de Phone Number [facility] [place] [address] * (ABNORMAL) Comprehensive metabolic panel (non-fasting) (06/06/2022 12:46 PM EST) Glucose 107 65 - 199 mg/dL [facility] Comment:Diabetes: >=200 mg/d L plus symptoms Blood Urea Nitrogen 15 8 - 18 mg/dL [facility] Creatinine 0.66(L) 0.70 - 1.20 mg/dL [facility] Sodium 141 135 - 145 mmol/L [facility] Potassium 4.2 3.5 - 5.0 mmol/L [facility] Comment: Please note: ??Patients with WBC >100,000 may have falsely elevated Potassium levels. ??For accurate Potassium quantification in these patients send serum separator tube (gold top) for subsequent determinations. ??Contact the Clinical Chemistry Laboratory if there are any questions. Chloride 104 98 - 107 mmol/L [facility] Carbon Dioxide 27 22 - 31 mmol/L [facility] Anion Gap 10 5 - 15 mmol/L [facility] Calcium 10.4 8.5 - 10.5 mg/dL [facility] Protein, Total 6.9 6.1 - 8.0 g/dL [facility] Albumin 4.3 3.2 - 5.2 g/dL [facility] Aspartate Aminotransferase 33(H) 0 - 30 unit/L [facility] Alanine Aminotransferase 34(H) 0 - 30 unit/L [facility] Alkaline Phosphatase 98 35 - 105 unit/L [facility] Bilirubin, Total 0.6 0.2 - 1.3 mg/dL [facility] Est Glomerular Filtration Rate 89 >=60 mL/min/1. 73 m?? [facility] Comment: This patient's estimated GFR was [...] DANGELO CHEMISTRY ORDERABL ES Performing Organization Address [facility] Co de Phone Number [facility] [place] [address] * (ABNORMAL) Prothrombin Time (06/06/2022 12:46 PM EST) Prothrombin Time 12.9(H) 9.4 - 12.5 sec [facility] International Normalization Ratio 1.1 [facility] Comment: An INR <2.0 indicates adequate [...] APRN HEMATOLOGY ORDERAB LES Performing Organization Address City/[facility]/ZIP Co de Phone Number [facility] [place] [address] documented in this encounter Visit Diagnoses Diagnosis Hepatic cirrhosis, unspecified hepatic cirrhosis type, unspecified whether ascites present documented in this encounter Care Teams Sonography Technologist Relationship Specialty Start Date End Date Salome Mcarthur APRN [address] [place] [address] PCP - General Family Medicine 05/30/15 12/11/23 documented as of this encounter
--- OUTSIDE RECORDS SUMMARY | 2024-04-16 15:40 | XMS_ITS | Encounter Summary ---
[place] [address] Care Team Providers Care Sales Associate Cashier Name Role Phone Salome Mcarthru APRN Primary Care Provider +1 [phone] Encounter Details Date Type Department Care Team (Late st Contact Info) Description 01/08/2022 Telephone [place] [address] Светлана Henry Social History Tobacco [...] calls can be handled by: Any procedure corporate scheduler documented in this encounter Plan of Treatment Upcoming Encounters Date Type Department Care Team (Late st Contact Info) Description 04/28/2024 11:00 AM EST [place] [address] Molly Cui APRN [facility] [place] [address] 04/28/2024 2:00 PM EST Office [place] [address] Molly Cui APRN [facility] [place] [address] documented as of this encounter Visit Diagnoses Not on filedocumented in this encounter Care Teams Sales Associate Cashier Relationship Specialty Start Date End Date Salome Mcarthur APRN [address] [place] [address] PCP - General Family Medicine 05/30/15 12/11/23 documented as of this encounter
--- OUTSIDE RECORDS SUMMARY | 2024-04-16 15:40 | XMS_ITS | Encounter Summary ---
Author Organization [facility] [place] [address] Care Team Providers Care Aviation Electronics Technician Name Role Phone Salome Mcarthur APRN Primary Care Provider [phone] [phone] Encounter Details Date Type Department Care Team (Latest Contact Info) Description 12/05/2022 12:15 PM EDT Laboratory Appointment Lab [address] [place] [address] Hepatic cirrhosis, unspecified hepatic cirrhosis [...] 04/28/2024 11:00 AM [place] [address] Molly Cui [facility] [place] [address] 04/28/2024 2:00 PM EST Office [place] [address] Molly Cui [facility] [place] [address] documented as of this encounter [...] 12:22 PM EDT) Neutrophil % 56.6 % [facility] Neutrophil Absolute 2.71 1.70 - 6.10 x10(3)/[facility] Lymph % 30.5 % [facility] Lymphocytes Abs 1.5 0.9 - 3.2 x10(3)/[facility] Monocyte % 9.2 % [facility] Monocyte Abs 0.4 0.3 - 0.9 x10(3)/[facility] Eos % 2.9 % [facility] Eosinophils Abs 0.1 0.0 - 0.4 x10(3)/[facility] Basophil % 0.4 % [facility] Baso Absolute 0.0 0.0 - 0.1 x10(3)/[facility] Immature Gran % 0.40 % [facility] Comment: Immature granulocytes(IG's)percentage and absolute count will include metamyelocytes, myelocytes, and promyelocytes. Blood smears from CBCs yielding IG's will be scanned manually for concordance. If this scan disagrees with the automated IG or if promyelocytes are noted, a manual differential will be performed. Immature Gran Absolute 0.02 0.00 - 0.04 x10(3)/mcL [facility] Blood 12/05/2022 12:2 2 PM EDT 12/05/2022 12:47 PM EDT Narrative Resulting Agency Comment Spec In Lab Molly Cui VP AD SALES [facility] HEMATOLOG[facility] ORDERAB LES [facility] [place] [address] * (ABNORMAL) Hemogram (12/05/2022 12:22 PM EDT) White Blood Cell 4.8 4.0 - 9.5 x10(3)/mc L [facility] Red Blood Cell 4.13 4.00 - 5.21 x10(6)/mc L [facility] Hemoglobin 12.8 11.7 - 15.5 g/dL [facility] Hematocrit 38.5 35.7 - 45.8 % [facility] Mean Cell Volume 93.2 82.6 - 94.4 fL [facility] Mean Cell Hemoglobin 31.0 27.1 - 32.0 pg [facility] Mean Cell Hemoglobin Concentration 33.2 31.7 - 35.0 g/dL [facility] Platelet 91(L) 145 - 357 x10(3)/mc L [facility] RDW Standard Deviation 46.7(H) 37.0 - 46.0 fL [facility] RDW coefficient of variation 13.8 11.5 - 14.1 % [facility] Mean Platelet Volume 11.2 7.6 - 12.9 fL [facility] NRBC% auto 0.0 % [facility] NRBC Absolute 0.000 0.000 - 0.000 x10(3)/mc L [facility] Blood 12/05/2022 12:2 2 PM EDT 12/05/2022 12:47 PM EDT Narrative Resulting Agency Comment Spec In Lab Molly Cui VP AD SALES WEST HEMATOLOGY ORDERAB LES [facility] [place] [address] * (ABNORMAL) Comprehensive metabolic panel (non-fasting) (12/05/2022 12:22 PM EDT) Glucose 114 65 - 199 mg/dL [facility] Comment:Diabetes: >=200 mg/d L plus symptoms Blood Urea Nitrogen 17 8 - 18 mg/dL [facility] Creatinine 0.71 0.70 - 1.20 mg/dL [facility] Sodium 142 135 - 145 mmol/L [facility] Potassium 4.1 3.5 - 5.0 mmol/L [facility] Comment: Please note: ??Patients with WBC >100,000 may have falsely elevated Potassium levels. ??For accurate Potassium quantification in these patients send serum separator tube (gold top) for subsequent determinations. ??Contact the Clinical Chemistry Laboratory if there are any questions. Chloride 105 98 - 107 mmol/L [facility] Carbon Dioxide 28 22 - 31 mmol/L [facility] Anion Gap 9 5 - 15 mmol/L [facility] Calcium 9.7 8.5 - 10.5 mg/dL [facility] Protein, Total 7.0 6.1 - 8.0 g/dL [facility] Albumin 4.2 3.2 - 5.2 g/dL [facility] Aspartate Aminotransferase 33(H) 0 - 30 unit/L [facility] Alanine Aminotransferase 32(H) 0 - 30 unit/L [facility] Alkaline Phosphatase 136(H) 35 - 105 unit/L [facility] Bilirubin, Total 0.6 0.2 - 1.3 mg/dL [facility] Est Glomerular Filtration Rate 85 >=60 mL/min/1. 73 m?? [facility] Comment: This patient's estimated GFR was [...] APRN CHEMISTRY ORDERABL ES Performing Organization Address [facility] Co de Phone Number [facility] [place] [address] * (ABNORMAL) Prothrombin Time (12/05/2022 12:22 PM EDT) Prothrombin Time 13.2(H) 9.4 - 12.5 sec [facility] International Normalization Ratio 1.2 [facility] Comment: An INR <2.0 indicates adequate [...] APRN HEMATOLOGY ORDERAB LES Performing Organization Address [facility] Co de Phone Number [facility] [place] [address] documented in this encounter Visit Diagnoses Diagnosis Hepatic cirrhosis, unspecified hepatic cirrhosis type, unspecified whether ascites present documented in this encounter Care Teams Aviation Electronics Technician Relationship Specialty Start Date End Date Salome Mcarthur APRN [address] [place] [address] PCP - General Family Medicine 05/30/15 12/11/23 documented as of this encounter
--- OUTSIDE RECORDS SUMMARY | 2024-04-16 15:40 | XMS_ITS | Encounter Summary ---
Author Organization [facility] [place] [address] Care Team Providers Care Cylinder Honer Name Role Phone Salome Mcarthur APRN Primary Care Provider [phone] Encounter Details Date Type Department Care Team (Latest Contact Info) Description 11/29/2021 11:30 AM EDT Laboratory Appointment Lab [address] [place] [address] Hepatic cirrhosis, unspecified hepatic cirrhosis [...] 04/28/2024 11:00 AM EST [place] [address] Molly Cui [facility] [address] 04/28/2024 2:00 PM EST Office [place] [address] Molly Cui [facility] [place] [address] documented as of this encounter [...] 11:04 AM EDT) Neutrophil % 65.7 % [facility] Neutrophil Absolute 5.57 1.70 - 6.10 x10(3)/[facility] LAB[facility] Lymph % 21.4 % [facility] Lymphocytes Abs 1.8 0.9 - 3.2 x10(3)/[facility] Monocyte % 10.3 % [facility] Monocyte Abs 0.9 0.3 - 0.9 x10(3)/[facility] Eos % 1.9 % [facility] Eosinophils Abs 0.2 0.0 - 0.4 x10(3)/[facility] Basophil % 0.5 % [facility] Baso Absolute 0.0 0.0 - 0.1 x10(3)/[facility] Immature Gran % 0.20 % [facility] Comment: Immature granulocytes(IG's)percentage and absolute count will include metamyelocytes, myelocytes, and promyelocytes. Blood smears from CBCs yielding IG's will be scanned manually for concordance. If this scan disagrees with the automated IG or if promyelocytes are noted, a manual differential will be performed. Immature Gran Absolute 0.02 0.00 - 0.04 x10(3)/[facility] LAB[facility] Blood 11/29/2021 11:0 4 AM EDT 11/29/2021 11:12 AM EDT Narrative Resulting Agency Comment Spec In Lab Molly Cui APRN HEMATOLOGY ORDERAB LES Performing Organization Address City/State/[facility] Co de Phone Number [facility] [place] [address] * (ABNORMAL) Hemogram (11/29/2021 11:04 AM EDT) White Blood Cell 8.5 4.0 - 9.5 x10(3)/[facility] Red Blood Cell 4.44 4.00 - 5.21 x10(6)/[facility] Hemoglobin 13.6 11.7 - 15.5 g/dL [facility] Hematocrit 40.2 35.7 - 45.8 % [facility] Mean Cell Volume 90.5 82.6 - 94.4 fL [facility] Mean Cell Hemoglobin 30.6 27.1 - 32.0 pg [facility] Mean Cell Hemoglobin Concentration 33.8 31.7 - 35.0 g/dL [facility] Platelet 93(L) 145 - 357 x10(3)/[facility] RDW Standard Deviation 42.5 37.0 - 46.0 [facility] LAB[facility] RDW coefficient of variation 12.9 11.5 - 14.1 % [facility] Mean Platelet Volume 11.8 7.6 - 12.9 fL [facility] NRBC% auto 0.0 % [facility] NRBC Absolute 0.000 0.000 - 0.000 x10(3)/mcL [facility] Blood 11/29/2021 11:0 4 AM EDT 11/29/2021 11:12 AM EDT Narrative Resulting Agency Comment Spec In Lab Mollyjuan a Cui LITHOGRAPHIC ETCHER HEMATOLOGY ORDERAB LES [facility] [place] [address] * (ABNORMAL) Comprehensive metabolic panel (non-fasting) (11/29/2021 11:04 AM EDT) Glucose 122 65 - 199 mg/dL [facility] Comment:Diabetes: >=200 mg/d L plus symptoms Blood Urea Nitrogen 18 8 - 18 mg/dL [facility] Creatinine 0.64(L) 0.70 - 1.20 mg/dL [facility] Sodium 140 135 - 145 mmol/L [facility] [facility] questions. Chloride 101 98 - 107 mmol/L [facility] Carbon Dioxide 27 22 - 31 mmol/L [facility] Anion Gap 12 5 - 15 mmol/L [facility] Calcium 11.0(H) 8.5 - 10.5 mg/dL [facility] Protein, Total 7.4 6.1 - 8.0 g/dL [facility] Albumin 4.5 3.2 - 5.2 g/dL [facility] Aspartate Aminotransferase 32(H) 0 - 30 unit/L [facility] Alanine Aminotransferase 39(H) 0 - 30 unit/L [facility] Alkaline Phosphatase 100 35 - 105 unit/L [facility] Bilirubin, Total 0.9 0.2 - 1.3 mg/dL [facility] Est Glomerular Filtration Rate 89 >=60 mL/min/1. 73 m?? [facility] Comment: This patient's estimated [...] ORDERABL ES Performing Organization Address [facility] Co de Phone Number [facility] [place] [id number] * (ABNORMAL) Prothrombin Time (11/29/2021 11:04 AM EDT) Prothrombin Time 13.3(H) 9.4 - 12.5 sec [facility] International Normalization Ratio 1.2 [facility] [...] ORDERAB LES Performing Organization Address [facility]/ZIP Co de Phone Number [facility] [place] [address] * AFP tumor marker (11/29/2021 11:04 AM EDT) Alpha Fetoprotein 3.2 <=8.3 ng/mL [facility] Comment: This result was generated using a Janet Maylin immunoassay. ??Results obtained from other methods or manufacturers cannot be used interchangeably with this method. Blood 11/29/2021 11:0 4 AM EDT 11/29/2021 11:12 AM EDT Narrative Resulting Agency Comment Spec In Lab Molly Cui APRN CHEMISTRY ORDERABL ES Performing Organization Address [facility] Co de Phone Number [facility] [place] [address] documented in this encounter Visit Diagnoses Diagnosis Hepatic cirrhosis, unspecified hepatic cirrhosis type, unspecified whether ascites present documented in this encounter Care Teams Cylinder Honer Relationship Specialty Start Date End Date Salome Mcarthur APRN [address] [place] [address] PCP - General Family Medicine 05/30/15 12/11/23 documented as of this encounter
--- OUTSIDE RECORDS SUMMARY | 2024-04-16 15:41 | XMS_ITS | Encounter Summary ---
Author Organization [facility] [place] [address] Care Team Providers Care Hooker Laster Name Role Phone Salome Mcarthur APRN Primary Care Provider [phone] Encounter Details Date Type Department Care Team (Latest Contact Info) Description 10/29/2019 3:15 PM EDT Laboratory Appointment Lab [address] [place] [address] Hepatic cirrhosis, unspecified hepatic cirrhosis [...] 04/28/2024 11:00 AM EST [place]ointment [place] [address] Molly Cui [facility] [place] [address] 04/28/2024 2:00 PM EST Office Visit [place] [address] Molly Cui [facility] [place] [address] documented as of this encounter [...] 3:13 PM EDT) Neutrophil % 55.9 % [facility] Neutrophil Absolute 4.08 1.70 - 6.10 x10(3)/[facility] LABORATORY Lymph % 33.9 % [facility] Lymphocytes Abs 2.5 0.9 - 3.2 x10(3)/[facility] LAB[facility] Monocyte % 7.9 % [facility] Monocyte Abs 0.6 0.3 - 0.9 x10(3)/[facility] LAB[facility] Eos % 1.9 % [facility] Eosinophils Abs 0.1 0.0 - 0.4 x10(3)/[facility] LAB[facility] Basophil % 0.3 % [facility] Baso Absolute 0.0 0.0 - 0.1 x10(3)/[facility] LAB[facility]ORY Immature Gran % 0.10 % [facility] Comment: Immature granulocytes(IG's)percentage and absolute count will include metamyelocytes, myelocytes, and promyelocytes. Blood smears from CBCs yielding IG's will be scanned manually for concordance. If this scan disagrees with the automated IG or if promyelocytes are noted, a manual differential will be performed. Immature Gran Absolute 0.01 0.00 - 0.04 x10(3)/mcL [facility] Blood specimen (specimen) 10/29/2019 3:13 PM EDT 10/29/2019 3:22 PM EDT Narrative Resulting Agency Comment Spec In Lab Molly Cui APRN HEMATOLOGY ORDERAB LES [facility] [place] [address] * (ABNORMAL) Hemogram (10/29/2019 3:13 PM EDT) White Blood Cell 7.3 4.0 - 9.5 x10(3)/mc L [facility] Red Blood Cell 4.42 4.00 - 5.21 x10(6)/mc L [facility] Hemoglobin 13.5 11.7 - 15.5 gm/dL [facility] Hematocrit 40.5 35.7 - 45.8 % [facility] Mean Cell Volume 91.6 82.6 - 94.4 fL [facility] Mean Cell Hemoglobin 30.5 27.1 - 32.0 pg [facility] Mean Cell Hemoglobin Concentration 33.3 31.7 - 35.0 gm/dL [facility] Platelet 122(L) 145 - 357 x10(3)/mc L [facility] RDW Standard Deviation 43.3 37.0 - 46.0 [facility] LAB[facility]ATORY RDW coefficient of variation 12.9 11.5 - 14.1 % [facility] Mean Platelet Volume 11.3 7.6 - 12.9 fL [facility] NRBC% auto 0.0 % [facility] NRBC Absolute 0.000 0.000 - 0.000 x10(3)/mc L [facility] Blood specimen (specimen) 10/29/2019 3:13 PM EDT 10/29/2019 3:22 PM EDT Narrative Resulting Agency Comment Spec In Lab Mollyjuan a Cui PROGRAM TECHNICIAN HEMATOLOGY ORDERAB LES [facility] [place] [address] * (ABNORMAL) Comprehensive metabolic panel (non-fasting) (10/29/2019 3:13 PM EDT) Glucose 116 65 - 199 mg/dL [facility] Comment:Diabetes: >=200 mg/d L plus symptoms Blood Urea Nitrogen 19(H) 8 - 18 mg/dL [facility] Creatinine 0.67(L) 0.70 - 1.20 mg/dL [facility] Sodium 140 135 - 145 mmol/L [facility] Potassium 4.2 3.5 - 5.0 mmol/L [facility] Comment: Please note: ??Patients with WBC >100,000 may have falsely elevated Potassium levels. ??For accurate Potassium quantification in these patients send serum separator tube (gold top) for subsequent determinations. ??Contact the Clinical Chemistry Laboratory if there are any questions. Chloride 98 98 - 107 mmol/L [facility] Carbon Dioxide 27 22 - 31 mmol/L [facility] Anion Gap 15 5 - 15 mmol/L [facility] Calcium 9.9 8.5 - 10.5 mg/dL [facility] Protein, Total 7.0 6.1 - 8.0 gm/dL [facility] Albumin 4.4 3.2 - 5.2 gm/dL [facility] Aspartate Aminotransferase 28 0 - 30 unit/L [facility] Alanine Aminotransferase 37(H) 0 - 30 unit/L [facility] Alkaline Phosphatase 73 35 - 105 unit/L [facility] Bilirubin, Total 0.6 0.2 - 1.3 mg/dL [facility] Est Glomerular Filtration Rate 84 >=60 mL/min/1. 73 m?? [facility] Comment: The eGFR was calculated using the CKD-EPI equation. As with all creatinine based estimates of kidney function, eGFR values calculated with the CKD-EPI equation are not accurate in patients with acute kidney failure, extremes of body mass or the acutely ill. [email or web address] CITYnkf eGFR 98 >=60 mL/min/1. 73 m?? [facility] Comment: The eGFR was calculated using the CKD-EPI equation. As with all creatinine based estimates of kidney function, eGFR values calculated with the CKD-EPI equation are not accurate in patients with acute kidney failure, extremes of body mass or the acutely ill. [email or web address] CITYnkf Blood specimen (specimen) 10/29/2019 3:13 PM EDT 10/29/2019 3:22 PM EDT Narrative Resulting Agency Comment Spec In Lab Molly Cui APRN CHEMISTRY ORDERABL ES Performing Organization Address [facility] Co de Phone Number [facility] [place] [address] * AFP tumor marker (10/29/2019 3:13 PM EDT) Alpha Fetoprotein 2.9 <=8.3 ng/mL [facility] Blood specimen (specimen) 10/29/2019 3:13 PM EDT 10/29/2019 3:22 PM EDT Narrative Resulting Agency Comment Spec In Lab Molly Cui PROGRAM TECHNICIAN CHEMISTRY ORDERABL ES Performing Organization Address [facility] Co de Phone Number [facility] [place] [address] * (ABNORMAL) Prothrombin Time (10/29/2019 3:13 PM EDT) Prothrombin Time 13.1(H) 9.4 - 12.5 sec [facility] [...] HEMATOLOGY ORDERAB LES [facility] [place] [address] documented in this encounter Visit Diagnoses Diagnosis Hepatic cirrhosis, unspecified hepatic cirrhosis type, unspecified whether ascites present documented in this encounter Care Teams Hooker Laster Relationship Specialty Start Date End Date Salome Mcarthur APRN [address] [place] [address] PCP - General Family Medicine 05/30/15 12/11/23 documented as of this encounter
--- OUTSIDE RECORDS SUMMARY | 2024-04-16 15:41 | XMS_ITS | Encounter Summary ---
Author Organization [facility]ly [facility], Later [facility] Address [facility] [place] [address] Care Team Providers Care Dredge Captain Name Role Phone Salome Mcarthur APRN Primary Care Provider +[phone] Reason for Visit * Auth/Cert Specialty Diagnoses [...] Expiration Date Visits Re quested Visits Authorized [id number] 1 1 Encounter Details Date Type Department Care Team (Latest Contact Info) Description 09/26/2020 12:50 PM EDT - 09/26/2020 3:53 PM EDT Hospital En[place] [address] Jean Claude Chacon MD [facility] [place] [address] Hepatic cirrhosis Discharge Disposition: Home Social History [...] the day after the procedure, use an mrlk-ryo-uogbvop spray to numb your throat. Sucking on [...] occurs, please contact your Doctor. Please call [phone] before 8pm Mon-Fri with problems, questions or concerns. If you call after 8pm or on weekends, call the Hospital at [phone] and ask to speak to the Vacuum Cooker Operator wafer production worker and the projector booth operator will contact that person for you. When should you call for help? Call 541 anytime you think you may need emergency [...] Summary and more online at [email or web address] If you would like to provide feedback about your hospital experience, please call the Office of Patient and Family Relations at . If you have received this After Visit Summary in error, please immediately return it in person to the department, or notify the [facility] Privacy Office by calling toll free at between the hours of 8AM and 5PM to arrange for our retrieval of the documents at no cost to you. Content Version: 12.2 ?? [id number] [employer]. Care instructions adapted under license by [facility]. If you have questions about a medical condition or this instruction, always ask your healthcare professional. [employer] disclaims any warranty or liability for your [...] directed. 05/02/2020 fluticasone propionate (FLONASE) 50 mcg/actuation [place], Suspension 1 spray daily. pramipexole (MIRAPEX) 0.125 [...] Operative Note Patient Name: Milka Corbett : [id number] MR#: [id number] Case Date: 09/26/2020 Surgeon: Surgeon(s) and Role: * Braulio Bailey MD - Primary Procedure(s): EGD, UPPER GI ENDOSCOPY Please see Provation report for details. documented in this encounter Plan of Treatment Upcoming Encounters Date Type Department Care Team (Late st Contact Info) Description 04/28/2024 11:00 AM EST [place] [address] Molly Cui, SKILLED NURSING FACILITY COUNSELOR [facility] [place] [address] 04/28/2024 2:00 PM EST Office [place] [phone] Molly Cui SKILLED NURSING FACILITY COUNSELOR [facility] [place] [address] documented as of this encounter Procedures Procedure [...] (09/26/2020 1:55 PM EDT) UPPER GI ENDOSCOPY [facility] Endoscopy Procedure Date: 09/26/2020 1:55 PM ? Patient Name: Milka Corbett ? Date of : 1940 ? Age: 80 ? Order #: [id number] ? Instrument Name: [id number] LOANER ? Procedure: ? Upper GI endoscopy [...] Procedure Code(s): ?? --- Professional --- ? 33172, Esophagogastroduod enoscopy, ? flexible, transoral; diagnostic, ? including collection of specimen(s) ? by brushing or washing, when ? performed (separate procedure) Diagnosis Code(s): ?? --- Professional --- ? K29.70, Gastritis, unspecified, ? without bleeding ? 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 --- Technical --- ? K29.70, Gastritis, unspecified, ? without bleeding ? 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 All rights reserved. The codes documented in this report are preliminary and upon inspector final assembly electrical review may be revised to meet current compliance requirements. Attending Participation: ? I personally performed the entire procedure. ? Braulio Bailey, 09/26/2020 2:38:44 PM Number of Addenda: 0 Note Initiated On: 09/26/2020 1:55 PM PROVATION 09/26/2020 1:55 PM EDT Salome Mcarthur SKILLED NURSING FACILITY COUNSELOR GENERAL SURGICAL OR DERABLES PROVATION * POCT Glucose (09/26/2020 1:42 PM EDT) Glucose, POC 88 65 - 199 mg/dL [facility] Comment: Supplemental ranges: <140 mg/dL before meals <180 mg/dL all other times of the day Blood 09/26/2020 1:42 PM EDT 09/25/2020 12:00 PM EDT Jean Claude Chacon MD POINT OF CARE TEST O RDERABLES [facility] [place] [address] documented in this encounter Visit Diagnoses Diagnosis [...] RN) documented in this encounter Care Teams Dredge Captain Relationship Specialty Start Date End Date Salome Mcarthur APRN [address] [place] [address] PCP - General Family Medicine 05/30/15 12/11/23 documented as of this encounter
--- OUTSIDE RECORDS SUMMARY | 2024-04-16 15:41 | XMS_ITS | Encounter Summary ---
Author [facility] [place] [address] Care Team Providers Care Flamer Sealer Name Role Phone Salome Mcarthur APRN Primary Care Provider [phone] [phone] Encounter Details Date Type Department Care Team (Late st Contact Info) Description 06/01/2021 12:00 PM EST Office [place] [phone] Lani Wallis APRN [facility] [place] [address] Hepatic cirrhosis, unspecified hepatic cirrhosis type, unspecified [...] daily. ??? fluticasone propionate (FLONASE) 50 mcg/actuation [place], Suspension 1 spray daily. ??? pramipexole (MIRAPEX) [...] mL 300 mL Urethral Once PRN Sandra eBltrán MD ALLERGIES Allergies Allergen Reactions ??? Codeine [...] Vitals: 06/01/21 1138 BP: 141/59 BP Location ([facility]): Right arm Patient Position: Sitting BP [...] Wallis APRN Section of Gastroenterology [place] [address] Copy: Salome Mcarthur APRN [address] / [place] [address] Time spent reviewing records prior to this [...] 04/28/2024 11:00 AM EST [place] [address] Lani Wallis APRN [facility] [place] [address] 04/28/2024 2:00 PM EST Office [place] [address] Lani Wallis APRN [facility] [place] [address] documented as of this encounter Results * AFP tumor marker (11/29/2021 11:04 AM EDT) Pathologist [facility] Alpha Fetoprotein 3.2 <=8.3 ng/mL [facility] Comment: This result was generated using a Janet Maylin immunoassay. ??Results obtained from other methods or manufacturers cannot be used interchangeably with this method. Blood 11/29/2021 11:0 4 AM EDT 11/29/2021 11:12 AM EDT Narrative Resulting Agency Comment Spec In Lab Lani Wallis APRN CHEMISTRY ORDERABL ES Performing Organization Address [facility] Co de Phone Number [facility] [place] [place] [address] * (ABNORMAL) Prothrombin Time (11/29/2021 11:04 AM [...] APRN HEMATOLOGY ORDERAB LES Performing Organization Address [facility]/ZIP Co de Phone Number [facility] [place] [address] * (ABNORMAL) Comprehensive metabolic panel (non-fasting) (11/29/2021 [...] Lani Sharron Wallis APRN CHEMISTRY ORDERABL ES [facility] [place] [address] * US Abdomen Limited Hepatology Protocol (11/29/2021 [...] ascites. Electronically signed by: Avila Keith MD, [facility] ([phone]), at 11/29/2021 10:23 AM Thank you for letting us participate in the care of this patient. If you are a health care provider and have any questions regarding this report, please contact the number above. For patients who have questions, please contact the health care assistant that requested your imaging first. ?Avila Keith, Staff Physician Electronically Signed Final Report ?? 11/29/2021 10:30 am Narrative 11/29/2021 10:30 AM EDT Abdominal ? (Signed Final 11/29/2021 10:30 am) PATIENT INFO: ID #: ? [id number] ?: ??[birth year] (81 yrs)(F) Name: ? NICK MENDIETA ?Visit Date: 11/29/2021 10:17 am PERFORMED BY: Performed By: ? Esperanza HI, Dea Attending: ?Avila Keith MD Referred By: ?LANI WALLIS Secondary Phy.: ?? LANI WALLIS FISHERIES OFFICER Location: ? [place] [facility] Protocol - Abdominal ?67793 Limited Survey Single Organ or Quadrant - [id number] INDICATIONS: cirrhosis, screen for hcc COMPARISON: US: [...] 11/29/2021 10:30 am) PATIENT INFO: ID #: [id number] : [birth year] (81 yrs)(F) Name: NICK MENDIETA Visit Date: 11/29/2021 10:17 am PERFORMED BY: Performed By: Dea Mata RDMS Attending: Avila Keith MD Referred By: LANI WALLIS [facility] Phy.: LANI WALLIS APRN Location: [place] [facility] - Hepatology Protocol - Abdominal 29419 Limited Survey Single Organ or Quadrant - [id number] INDICATIONS: cirrhosis, screen for hcc COMPARISON: US: [...] ascites. Electronically signed by: Avila Keith MD, [facility] ([phone]), at 11/29/2021 10:23 AM Thank you for letting us participate in the care of this patient. If you are a health care provider and have any questions regarding this report, please contact the number above. For patients who have questions, please contact the health care assistant that requested your imaging first. Avila Keith, Staff Physician Electronically Signed Final Report 11/29/2021 10:30 am Lani Wallis APRN IMG US GEN ORDERAB LES documented in this encounter Visit Diagnoses Diagnosis Hepatic cirrhosis, unspecified hepatic cirrhosis type, unspecified whether ascites present Hepatic cirrhosis, unspecified hepatic cirrhosis type, unspecified whether ascites present documented in this encounter Care Teams Flamer Sealer Relationship Specialty Start Date End Date Salome Mcarthur APRN [address] [place] [address] PCP - General Family Medicine 05/30/15 12/11/23 documented as of this encounter
--- OUTSIDE RECORDS SUMMARY | 2024-04-16 15:41 | XMS_ITS | Encounter Summary ---
Author [facility] [place] [address] Care Team Providers Care Sap Fico Architect Name Role Phone Salome Mcarthur APRN Primary Care Provider [phone] Encounter Details Date Type Department Care Team (Late st Contact Info) Description 05/19/2020 12:30 PM EST Office [place] [address] Molly Wallis APRN [facility] [place] [address] Hepatic cirrhosis, unspecified hepatic cirrhosis type, unspecified [...] about moving, but haven't moved out of [place]. She denies any ascites, blood in stool, [...] Apply 1 Application topically as needed. ??? Argyle-3 Fatty Acids-Vitamin E (FISH OIL) 1,000 mg [...] Wallis APRN Section of Gastroenterology [place] [address] Copy: Salome Mcarthur APRN [address] / [place] [address] Time spent reviewing records prior to this [...] 04/28/2024 11:00 AM EST [place]oint[place] [address] Molly Wallis APRN [facility] [place] [address] 04/28/2024 2:00 PM EST Office [place] [phone] Molly Wallis APRN [facility] [place] [address] Scheduled Orders Name Type Priority Associated Diagnoses Orde r Schedule ENDOSCOPY CASE REQUEST: EGD, UPPER GI ENDOSCOPY Procedures Routine Hepatic cirrhosis, unspecified hepatic cirrhosis type, unspecified whether ascites present Ordered: 05/19/2020 documented as of this encounter Results * Prothrombin Time (12/06/2020 12:34 PM EDT) Prothrombin Time 11.9 9.4 - 12.5 sec [facility] International Normalization Ratio 1.0 [facility] Comment: An INR <2.0 [...] Lab Molly Wallis APRN HEMATOLOGY ORDERAB LES [facility] [place] [address] * (ABNORMAL) Comprehensive metabolic panel (non-fasting) (12/06/2020 12:34 PM EDT) Glucose 90 65 - 199 mg/dL [facility] Comment:Diabetes: >=200 mg/d L plus symptoms Blood Urea Nitrogen 23(H) 8 - 18 mg/dL [facility] Creatinine 0.78 0.70 - 1.20 mg/dL [facility] Sodium 141 135 - 145 mmol/L [facility] Potassium 4.4 3.5 - 5.0 mmol/L [facility] Comment: Please note: ??Patients with WBC >100,000 may have falsely elevated Potassium levels. ??For accurate Potassium quantification in these patients send serum separator tube (gold top) for subsequent determinations. ??Contact the Clinical Chemistry Laboratory if there are any questions. Chloride 103 98 - 107 mmol/L [facility] Carbon Dioxide 26 22 - 31 mmol/L [facility] Anion Gap 12 5 - 15 mmol/L [facility] Calcium 10.2 8.5 - 10.5 mg/dL [facility] Protein, Total 6.9 6.1 - 8.0 gm/dL [facility] Albumin 4.2 3.2 - 5.2 gm/dL [facility] Aspartate Aminotransferase 35(H) 0 - 30 unit/L [facility] Alanine Aminotransferase 36(H) 0 - 30 unit/L [facility] Alkaline Phosphatase 82 35 - 105 unit/L [facility] Bilirubin, Total 0.7 0.2 - 1.3 mg/dL [facility] Est Glomerular Filtration Rate 72 >=60 mL/min/1. 73 m?? [facility] Comment: This patient? s estimated [...] Lab Molly Wallis APRN CHEMISTRY ORDERABL ES [facility] [place] [address] * US Abdomen Limited Hepatology Protocol (09/26/2020 [...] who have questions please contact the health wound care nurse that requested your imaging first. Electronically signed by: Meghan Cardozo MD, [facility] ([phone]), at 09/26/2020 11:48 AM Thank you for letting us participate in the care of this patient. If you are a health care provider and have any questions regarding this report, please contact the number below. For patients who have questions, please contact the health wound care nurse that requested your imaging first. ??Meghan Cardozo, [facility] & Dept Chair - Rad Electronically Signed Final Report ?? 09/26/2020 11:56 am Narrative 09/26/2020 11:57 AM EDT Abdominal ? (Signed Final 09/26/2020 11:56 am) PATIENT INFO: ID #: ? [id number] ?: ??42 (80 yrs)(F) Name: ? MILKA MENDIETA ?Visit Date: 09/26/2020 11:29 am PERFORMED BY: Performed By: ? Crista Zhong RDMS Attending: ?Juliane GALLO, Meghan Ventura Referred By: ?MOLLY WALLIS Secondary Phy.: ?? MOLLY WALLIS APRN Location: ? [place] SERVICE(S) PROVIDED: [facility] - Hepatology Protocol - Abdominal ? 53272 Limited Survey Single Organ or Quadrant - [id number] INDICATIONS: cirrhosis, screen for hcc COMPARISON: US: [...] 09/26/2020 11:56 am) PATIENT INFO: ID #: [id number] : 42 (80 yrs)(F) Name: MILKA MENDIETA Visit Date: 09/26/2020 11:29 am PERFORMED BY: Performed By: Crista Zhong RDMS Attending: Meghan Cardozo MD Referred By: MOLLY WALLIS [facility] Phy.: MOLLY WALLIS APRN Location: [place] [facility] Hepatology Protocol - Abdominal 27431 Limited Survey Single Organ or Quadrant - [id number] INDICATIONS: cirrhosis, screen for hcc COMPARISON: US: [...] who have questions please contact the health wound care nurse that requested your imaging first. Electronically signed by: Meghan Cardozo MD, [facility] ([phone]), at 09/26/2020 11:48 AM Thank you for letting us participate in the care of this patient. If you are a health care provider and have any questions regarding this report, please contact the number below. For patients who have questions, please contact the health wound care nurse that requested your imaging first. Meghan Cardozo, [facility] & Dept Chair - Rad Electronically Signed Final Report 09/26/2020 11:56 am Molly GRACE US GEN ORDERAB LES documented in this encounter Visit Diagnoses Diagnosis Hepatic cirrhosis, unspecified hepatic cirrhosis type, unspecified whether ascites present Hepatic cirrhosis, unspecified hepatic cirrhosis type, unspecified whether ascites present documented in this encounter Care Teams Sap Fico Architect Relationship Specialty Start Date End Date Salome Mcarthur APRN [address] [place] [address] PCP - General Family Medicine 05/30/15 12/11/23 documented as of this encounter
--- OUTSIDE RECORDS SUMMARY | 2024-04-16 15:41 | XMS_ITS | Encounter Summary ---
Author Organization [facility]ly [facility] [place] [address] Care Team Providers Care Vending Stand Supervisor Name Role Phone Salome Mcarthur APRN Primary Care Provider [phone] Reason for Visit * Reason Onset Date Comments Reminder Appointment 10/30/2019 Encounter Details Date Type Department Care Team (Late st Contact Info) Description 10/30/2019 Telephone [place] [address] Salome Licona CMA Reminder Appointment Social History Tobacco Use Types [...] 04/28/2024 11:00 AM EST Appointment [place] [phone] Molly Cui APRN [facility] [place] [address] 04/28/2024 2:00 PM EST Office Visit [place] [address] Molly Cui [address]N [facility] [place] [address] documented as of this encounter Visit Diagnoses Not on filedocumented in this encounter Care Teams Vending Stand Supervisor Relationship Specialty Start Date End Date Salome Mcarthur APRN [address] [place] [address] PCP - General Family Medicine 05/30/15 12/11/23 documented as of this encounter
--- OUTSIDE RECORDS SUMMARY | 2024-04-16 15:41 | XMS_ITS | Encounter Summary ---
Author Organization [facility] [place] [address] Care Team Providers Care Welding Machine Operator Electron Beam Name Role Phone Salome Mcarthur APRN Primary Care Provider +[phone] Encounter Details Date Type Department Care Team (Late st Contact Info) Description 11/02/2019 Orders [place] [phone] Molly Wallis [employer] [facility] [place] [address] Hepatic cirrhosis, unspecified hepatic cirrhosis type, unspecified [...] 04/28/2024 11:00 AM [place] [phone] Molly Wallis [employer] [facility] [place] [address] 04/28/2024 2:00 PM EST Office [place] [phone] Molly Wallis [facility] [place] [address] documented as of this encounter Results * [...] 11:57 am) PATIENT INFO: ID #: ? [id number] ?: ??[birth year] (79 yrs)(F) Name: ? MILKA MENDIETA ?Visit Date: 05/19/2020 11:19 am PERFORMED BY: Performed By: ? Gabi Mtz RDMS Attending: ?Alisha Grove MD. Resident: ? Tacho Guajardo MD Referred By: ?MOLLY WALLIS Secondary Phy.: ?? MOLLY WALLIS [employer] Location: ? [place] SERVICE(S) PROVIDED: ??[facility] - Hepatology Protocol - Abdominal ? 14883 ??Limited Survey Single Organ or Quadrant - ??[id number] INDICATIONS: ??cirrhosis, screen for hcc ------ LIVER: [...] 05/19/2020 11:57 am) PATIENT INFO: ID #: [id number] : 42 (79 yrs)(F) Name: MILKA MENDIETA Visit Date: 05/19/2020 11:19 am PERFORMED BY: Performed By: Gabi Mtz RDMS Attending: Alisha Grove MD Resident: Tacho Guajardo MD Referred By: MOLLY WALLIS [facility] Phy.: MOLLY WALLIS APRN Location: [place] SERVICE(S) [facility]: [facility] - Hepatology Protocol - Abdominal 28610 Limited Survey Single Organ or Quadrant - [id number] INDICATIONS: cirrhosis, screen for hcc ------ LIVER: [...] Prothrombin Time 12.4 9.4 - 12.5 sec [facility] International Normalization Ratio 1.1 [facility] Comment: An INR <2.0 [...] Lab Molly Wallis APRN HEMATOLOGY ORDERAB LES [facility] [place] [address] * (ABNORMAL) Comprehensive metabolic panel (non-fasting) (05/19/2020 10:25 AM EST) Glucose 112 65 - 199 mg/dL [facility] Comment:Diabetes: >=200 mg/d L plus symptoms Blood Urea Nitrogen 24(H) 8 - 18 mg/dL [facility] Creatinine 0.78 0.70 - 1.20 mg/dL [facility] Sodium 140 135 - 145 mmol/L [facility] Potassium 4.4 3.5 - 5.0 mmol/L [facility] Comment: Please note: ??Patients with WBC >100,000 may have falsely elevated Potassium levels. ??For accurate Potassium quantification in these patients send serum separator tube (gold top) for subsequent determinations. ??Contact the Clinical Chemistry Laboratory if there are any questions. Chloride 99 98 - 107 mmol/L [facility] Carbon Dioxide 27 22 - 31 mmol/L [facility] Anion Gap 14 5 - 15 mmol/L [facility] Calcium 10.8(H) 8.5 - 10.5 mg/dL [facility] Protein, Total 7.8 6.1 - 8.0 gm/dL [facility] Albumin 4.7 3.2 - 5.2 gm/dL [facility] Aspartate Aminotransferase 23 0 - 30 unit/L [facility] Alanine Aminotransferase 26 0 - 30 unit/L [facility] Alkaline Phosphatase 94 35 - 105 unit/L [facility] Bilirubin, Total 0.7 0.2 - 1.3 mg/dL [facility] Est Glomerular Filtration Rate 73 >=60 mL/min/1. 73 m?? [facility] Comment: This patient? s estimated [...] Lab Molly Wallis APRN CHEMISTRY ORDERABL ES [facility] [place] [address] documented in this encounter Visit Diagnoses Diagnosis Hepatic cirrhosis, unspecified hepatic cirrhosis type, unspecified whether ascites present Hepatic cirrhosis, unspecified hepatic cirrhosis type, unspecified whether ascites present documented in this encounter Care Teams Welding Machine Operator Electron Beam Relationship Specialty Start Date End Date Salome Mcarthur, [employer] [address] [place] [address] PCP - General Family Medicine 05/30/15 12/11/23 documented as of this encounter
--- OUTSIDE RECORDS SUMMARY | 2024-04-16 15:41 | XMS_ITS | Encounter Summary ---
Author Organization [facility] [place] [address] Care Team Providers Care Washhouse Hand Name Role Phone Salome Mcarthur APRN Primary Care Provider [phone] Reason for Referral * Diagnostic Test (Routine) - Closed Specialty Diagnoses / Procedures Referred By Contruth t Referred To Contact Radiology Diagnoses Hepatic cirrhosis, unspecified hepatic cirrhosis type, unspecified whether ascites present Procedures MRI Abdomen wwo Contrast (Generic) Molly Cui APRN [facility] [place] [address] [place] [address] Referral ID Status Reason Start Date Expiration Date V isits Requested Visits Authorized [id number] Closed Specialty Service Requested 03/12/2019 03/11/2020 1 1 Encounter Details Date Type Department Care Team (Late st Contact Info) Description 03/12/2019 12:30 PM EST Office Visit [place] [address] Molly uCi APRN [facility] [place] [address] Hepatic cirrhosis, unspecified hepatic cirrhosis [...] Refill ??? fluticasone propionate (FLONASE) 50 mcg/actuation [place], Suspension 1 spray daily. ??? pramipexole (MIRAPEX) [...] mouth every 4 hours as needed. ??? [place]-3 Fatty Acids-Vitamin E (FISH OIL) 1,000 mg [...] Cui APRN Section of Gastroenterology [place] [address] Copy: Salome Mcarthur APRN [address] / [place] [address] 25 of this 30 minute visit in face to face discussion regarding disease, prognosis and treatment documented in this encounter Plan of Treatment Upcoming Encounters Date Type Department Care Team (Late st Contact Info) Description 04/28/2024 11:00 AM EST Appointment [place] [phone] Molly Cui, [facility] [place] [address] 04/28/2024 2:00 PM EST Office Visit [place] [phone] Molly Cui, [facility] [place] [address] documented as of this encounter Results * [...] criteria and documentation are available online at https://www.acr.org/Clinical-Resources/Ywqyxpkmf-fvj-Fjbb-Systems/LI-RADS. This report utilizes LI-RADS version 2018. I [...] criteria and documentation are available online at https://www.acr.org/Clinical-Resources/Uqekzniyu-pnr-Cjjt-Systems/LI-RADS.This report utilizes LI-RADS version 2018. I have [...] CHEMISTRY ORDERABL ES [facility] [place] [address] * (ABNORMAL) Prothrombin Time (10/29/2019 3:13 PM [...] HEMATOLOGY ORDERAB LES [facility] [place] [address] * (ABNORMAL) Comprehensive metabolic panel (non-fasting) (10/29/2019 3:13 PM EDT) Glucose 116 65 - 199 mg/dL [facility] [...] of body mass or the acutely ill. http://Relayr/[facility] eGFR 98 >=60 mL/min/1. 73 m?? [facility] Comment: The eGFR was calculated using the CKD-EPI equation. As with all creatinine based estimates of kidney function, eGFR values calculated with the CKD-EPI equation are not accurate in patients with acute kidney failure, extremes of body mass or the acutely ill. http://Relayr/[facility] Blood specimen (specimen) 10/29/2019 3:13 PM EDT 10/29/2019 3:22 PM EDT Narrative Resulting Agency Comment Spec In Lab Molly Cui APRN CHEMISTRY ORDERABL ES [facility] [place] [address] documented in this encounter Visit Diagnoses Diagnosis Hepatic cirrhosis, unspecified hepatic cirrhosis type, unspecified whether ascites present Hepatic cirrhosis, unspecified hepatic cirrhosis type, unspecified whether ascites present documented in this encounter Care Teams Washhouse Hand Relationship Specialty Start Date End Date Salome Mcarthur APRN [address] [place] [address] PCP - General Family Medicine 05/30/15 12/11/23 documented as of this encounter
--- OUTSIDE RECORDS SUMMARY | 2024-04-16 15:41 | XMS_ITS | Encounter Summary ---
Author Organization [facility] [place] [address] Care Team Providers Care Physical Instructor Name Role Phone Salome Mcarthur APRN Primary Care Provider [phone] Reason for Visit * Auth/Cert Specialty Diagnoses / Procedures Referred By Jose bermudez Referred To Contact Diagnoses 1 yr surv from 09/17/18 Procedures PRO UPPER GI ENDOSCOPY, DIAGNOSTIC EGD, UPPER GI ENDOSCOPY Referral ID Status Reason Start Date Expiration Date Visits Re quested Visits Authorized [id number] 1 1 Encounter Details Date Type Department Care Team (Late st Contact Info) Description 09/23/2019 11:30 AM EDT - 09/23/2019 12:15 PM EDT [place] [phone] Juliette Chauhan MD [facility] [place] [address] EGD, UPPER GI ENDOSCOPY (WRVU 2.09) Social [...] the day after the procedure, use an drmd-qie-nwgfkgy spray to numb your throat. Sucking on [...] occurs, please contact your Doctor. Please call [phone] before 8pm Mon-Fri with problems, questions or concerns. If you call after 8pm or on weekends, call the Hospital at [phone] and ask to speak to the Zigzag Machine Operator masonry inspector and the blindstitch machine operator will contact that person for you. When should you call for help? Call [phone] anytime you think you may need emergency [...] any problems. Where can you learn more? [facility] View your After Visit Summary and more online at [email or web address] If you would like to provide feedback about your hospital experience, please call the Office of Patient and Family Relations at . If you have received this After Visit Summary in error, please immediately return it in person to the department, or notify the [facility] Privacy Office by calling toll free at between the hours of 8AM and 5PM to arrange for our retrieval of the documents at no cost to you. Content Version: 12.2 ?? [id number] [employer]. Care instructions adapted under license by [facility]. If you have questions about a medical condition or this instruction, always ask your healthcare professional. [employer] disclaims any warranty or liability for your use of this information. documented in this encounter Medications at Time of Discharge Medication Sig Dispensed Refills Start Date End Date lisinopriL (Zestril) 10 mg tablet Take 1 tablet by mouth once a day for kidney protection 06/06/2009 fluticasone propionate (FLONASE) 50 mcg/actuation [place], Suspension 1 spray daily. pramipexole (MIRAPEX) 0.125 [...] 04/28/2024 11:00 AM [place] [address] Molly Cui, [facility] [place] [address] 04/28/2024 2:00 PM EST Office [place] [address] Molly Cui, [facility] [place] [address] documented as of this encounter Procedures Procedure Name Priority Date/Time Associated Diagnosis Comments Upper GI Endoscopy, Diagnostic (14232) 09/23/2019 11:55 AM EDT 1 yr surv from 09/17/18 UPPER GI ENDOSCOPY Routine 09/23/2019 11 :41 AM EDT documented in this encounter Results * UPPER GI ENDOSCOPY (09/23/2019 11:41 AM EDT) [facility] UPPER GI ENDOSCOPY [facility] Endoscopy Procedure Date: 09/23/2019 11:41 AM ? Patient Name: Milka Corbett ? Date of : 1940 ? Age: 79 ? Order #: [id number] ? Instrument Name: [id number] ? Procedure: ? Upper GI endoscopy Indications: ? Follow-up of esophageal varices Providers: ? Juliette Chauhan MD, Bertha Lizarraga ? TRISHA Oleary, Fauzia Castillo ? TRISHA Kang, Genoveva Webber, Automobile Body Worker Referring : ?Sophia Mcarthur MD Medicines: ? [...] Procedure Code(s): ?? --- Professional --- ? 75019, Esophagogastroduod enoscopy, ? flexible, transoral; diagnostic, ? including collection of specimen(s) ? by brushing or washing, when ? performed (separate procedure) CPT copyright 2019 [employer]. All rights reserved. The codes documented in this report are preliminary and upon campground caretaker review may be revised to meet current [...] RN) documented in this encounter Care Teams Physical Instructor Relationship Specialty Start Date End Date Salome Mcarthur APRN [address] [place] [address] PCP - General Family Medicine 05/30/15 12/11/23 documented as of this encounter
--- OUTSIDE RECORDS SUMMARY | 2024-04-16 15:41 | XMS_ITS | Encounter Summary ---
Author Organization [facility] Address [facility] [place] [address] Care Team Providers Care Food And Nutrition Services Supervisor Name Role Phone Salome Mcarthur APRN Primary Care Provider [phone] Encounter Details Date Type Department Care Team (Latest Contact Info) Description 05/19/2020 10:31 AM EST - 05/19/2020 11:59 PM [facility] Hospital [place] [phone] Molly Wallis [facility] [place] [address] Hepatic cirrhosis, unspecified hepatic cirrhosis type, unspecified [...] directed. 05/02/2020 fluticasone propionate (FLONASE) 50 mcg/actuation [place], Suspension 1 spray daily. pramipexole (MIRAPEX) 0.125 [...] AM EST [place] [address] Molly Wallis, [facility] [place] [address] 04/28/2024 2:00 PM EST Office [place] [phone] Molly Wallis, [facility] [place] [address] documented as of this encounter Procedures Procedure [...] signed by: Alisha Grove MD, [facility] ([phone]), at 05/19/2020 11:51 AM ? Alisha Grove, Staff Physician Electronically Signed Final Report ?? 05/19/2020 11:57 am Narrative 05/19/2020 11:58 AM EST Abdominal ? (Signed Final 05/19/2020 11:57 am) PATIENT INFO: ID #: ? [id number] ?: ??[birth year] (79 yrs)(F) Name: ? MILKA MENDIETA ?Visit Date: 05/19/2020 11:19 am PERFORMED BY: Performed By: ? Gabi Mtz RDMS Attending: ?Perfecto GALLO, Alisha Carpio Resident: ? Tacho Guajardo MD Referred By: ?MOLLY WALLIS Secondary Phy.: ?? MOLLY WALLIS INVENTORY TECHNICIAN Location: ? [place] SERVICE(S) PROVIDED: ??UABDLIM - Hepatology Protocol - Abdominal ? 20583 ??Limited Survey Single Organ or Quadrant - ??[id number] INDICATIONS: ??cirrhosis, screen for hcc ------ LIVER: [...] 05/19/2020 11:57 am) PATIENT INFO: ID #: [id number] : 42 (79 yrs)(F) Name: MILKA MENDIETA Visit Date: 05/19/2020 11:19 am PERFORMED BY: Performed By: Gabi Mtz RDMS Attending: Alisha Grove MD Resident: Tacho Guajardo MD Referred By: MOLLY WALLIS Secondary Phy.: MOLLY WALLIS APRN Location: [place] SERVICE(S) PROVIDED: UABDLIM - Hepatology Protocol - Abdominal 18593 Limited Survey Single Organ or Quadrant - [id number] INDICATIONS: cirrhosis, screen for hcc ------ LIVER: [...] signed by: Alisha Grove MD, [facility] ([phone]), at 05/19/2020 11:51 AM Alisha Grove, Staff Physician Electronically Signed Final Report 05/19/2020 11:57 am Molly Wallis APRN [facility] GEN ORDERAB LES documented in this encounter Visit Diagnoses Diagnosis Hepatic cirrhosis, unspecified hepatic cirrhosis type, unspecified whether ascites present documented in this encounter Care Teams Food And Nutrition Services Supervisor Relationship Specialty Start Date End Date Salome Mcarthur APRN [address] [place] [address] PCP - General Family Medicine 05/30/15 12/11/23 documented as of this encounter
--- OUTSIDE RECORDS SUMMARY | 2024-04-16 15:41 | XMS_ITS | Encounter Summary ---
Author Organization [facility] Address [facility] [place] [address] Care Team Providers Care Business Office Manager Name Role Phone Salome Mcarthur APRN Primary Care Provider [phone] Reason for Visit * Auth/Cert Specialty Diagnoses [...] Expiration Date Visits Re quested Visits Authorized [id number] 1 1 Encounter Details Date Type Department Care Team (Latest Contact Info) Description 09/26/2020 11:28 AM EDT - 09/26/2020 12:49 PM EDT Hospital [place] [address] Molly Wallis APRN [facility] [place] [address] Hepatic cirrhosis, unspecified hepatic cirrhosis type, unspecified [...] directed. 05/02/2020 fluticasone propionate (FLONASE) 50 mcg/actuation [place], Suspension 1 spray daily. pramipexole (MIRAPEX) 0.125 [...] 04/28/2024 11:00 AM [place] [address] Molly Wallis, [facility] [place] [place] [address] 04/28/2024 2:00 PM EST Office [place] [phone] Molly Wallis, [facility] [place] [place] [address] documented as of this encounter Procedures Procedure [...] who have questions please contact the health ambulatory care that requested your imaging first. Thank you for letting us participate in the care of this patient. If you are a health care provider and have any questions regarding this report, please contact the number below. For patients who have questions, please contact the health ambulatory care that requested your imaging first. ??Meghan Cardozo, [facility] & Dept Chair - Rad Electronically Signed Final Report ?? 09/26/2020 11:56 am Narrative 09/26/2020 11:57 AM EDT Abdominal ? (Signed Final 09/26/2020 11:56 am) PATIENT INFO: ID #: ? [id number] ?: ??[birth year] (80 yrs)(F) Name: ? MILKA Yue MENDIETA ?Visit Date: 09/26/2020 11:29 am PERFORMED BY: Performed By: ? Crista Zhong RDMS Attending: ?Juliane GALLO, Meghan Ventura Referred By: ?MOLLY WALLIS Secondary Phy.: ?? MOLLY WALLIS SALES WAREHOUSE DRIVER Location: ? [place] SERVICE(S) PROVIDED: UABDLIM - Hepatology Protocol - Abdominal ? 23061 Limited Survey Single Organ or Quadrant - [id number] INDICATIONS: cirrhosis, screen for hcc COMPARISON: US: [...] 09/26/2020 11:56 am) PATIENT INFO: ID #: [id number] : 42 (80 yrs)(F) Name: MILKA MENDIETA Visit Date: 09/26/2020 11:29 am PERFORMED BY: Performed By: Crista Zhong RDMS Attending: Meghan Cardozo MD Referred By: MOLLY WALLIS [facility] Phy.: MOLLY WALLIS SALES WAREHOUSE DRIVER Location: [place] SERVICE(S) PROVIDED: BDLIM - Hepatology Protocol - Abdominal 04388 Limited Survey Single Organ or Quadrant - [id number] INDICATIONS: cirrhosis, screen for hcc COMPARISON: US: [...] who have questions please contact the health ambulatory care that requested your imaging first. Thank you for letting us participate in the care of this patient. If you are a health care provider and have any questions regarding this report, please contact the number below. For patients who have questions, please contact the health ambulatory care that requested your imaging first. Meghan Cardozo, [facility] & Dept Chair - Rad Electronically Signed Final Report 09/26/2020 11:56 am Mloly Wallis APRN [facility] GEN ORDERAB LES documented in this encounter Visit Diagnoses Diagnosis Hepatic cirrhosis, unspecified hepatic cirrhosis type, unspecified whether ascites present documented in this encounter Care Teams Business Office Manager Relationship Specialty Start Date End Date Salome Mcarthur APRN [address] [address] PCP - General Family Medicine 05/30/15 12/11/23 documented as of this encounter
--- OUTSIDE RECORDS SUMMARY | 2024-04-16 15:41 | XMS_ITS | Encounter Summary ---
Author Organization [place] [address] Care Team Providers Care Editor City Name Role Phone Salome Mcarthur APRN Primary Care Provider [phone] Encounter Details Date Type Department Care Team (Late st Contact Info) Description 12/06/2020 2:00 PM EDT Office [place] [address] Molly Wallis APRN [facility] [place] [address] Hepatic cirrhosis, unspecified hepatic cirrhosis type, unspecified [...] daily. ??? fluticasone propionate (FLONASE) 50 mcg/actuation [place], Suspension 1 spray daily. ??? pramipexole (MIRAPEX) [...] mouth as needed. Reported on 08/21/2016 ??? [place]-3 Fatty Acids-Vitamin E (FISH OIL) 1,000 mg [...] Wallis APRN Section of Gastroenterology [place] [address] Copy: Salome Mcarthur APRN [address] / [place] [address] Time spent reviewing records prior to this [...] 04/28/2024 11:00 AM EST [place] [phone] Molly Wallis APRN [facility] [place] [address] 04/28/2024 2:00 PM EST Office [place] [phone] Molly Wallis CHEF [place] [facility] [place] [address] documented as of this encounter Results * Prothrombin Time (06/01/2021 10:31 AM EST) Prothrombin Time 12.1 9.4 - 12.5 sec [facility] [...] Lab Molly Wallis APRN HEMATOLOGY ORDERAB LES [facility] [place] [address] * (ABNORMAL) Comprehensive metabolic panel (non-fasting) (06/01/2021 10:31 AM EST) Glucose 187 65 - 199 mg/dL [facility] Comment:Diabetes: >=200 mg/d L plus symptoms Blood Urea Nitrogen 16 8 - 18 mg/dL [facility] Creatinine 0.61(L) 0.70 - 1.20 mg/dL [facility] Sodium 139 135 - 145 mmol/L [facility] Potassium 4.3 3.5 - 5.0 mmol/L [facility] Comment: Please note: ??Patients with WBC >100,000 may have falsely elevated Potassium levels. ??For accurate Potassium quantification in these patients send serum separator tube (gold top) for subsequent determinations. ??Contact the Clinical Chemistry Laboratory if there are any questions. Chloride 102 98 - 107 mmol/L [facility] Carbon Dioxide 25 22 - 31 mmol/L [facility] Anion Gap 12 5 - 15 mmol/L [facility] Calcium 10.0 8.5 - 10.5 mg/dL [facility] Protein, Total 6.8 6.1 - 8.0 g/dL [facility] Albumin 4.3 3.2 - 5.2 g/dL [facility] Aspartate Aminotransferase 45(H) 0 - 30 unit/L [facility] Alanine Aminotransferase 60(H) 0 - 30 unit/L [facility] Alkaline Phosphatase 95 35 - 105 unit/L [facility] Bilirubin, Total 0.7 0.2 - 1.3 mg/dL [facility] Est Glomerular Filtration Rate 86 >=60 mL/min/1. 73 m?? [facility] Comment: This patient? s [...] Lab Molly Wallis APRN CHEMISTRY ORDERABL ES [facility] [place] [address] * US Abdomen Limited Hepatology Protocol (06/01/2021 [...] who have questions, please contact the health pet caregiver that requested your imaging first. ?Marilee Her, Staff Physician Electronically Signed Final Report ?? 06/01/2021 10:01 am Narrative 06/01/2021 10:02 AM EST Abdominal ? (Signed Final 06/01/2021 10:01 am) PATIENT INFO: ID #: ? [id number] ?: ??42 (80 yrs)(F) Name: ? MILKA MENDIETA ?Visit Date: 06/01/2021 09:47 am PERFORMED BY: Performed By: ? Lana Gotti RDMS Attending: ?Betty GALLO, Marilee Ragsdale Referred By: ?MOLLY WALLIS Secondary Phy.: ?? MOLLY WALLIS CHEF [place]ENCH Location: ? [place] SERVICE(S) PROVIDED: UABDLIM - Hepatology Protocol - Abdominal ? 10117 Limited Survey Single Organ or Quadrant - [id number] INDICATIONS: cirrhosis, screen for hcc ------ LIVER: [...] 06/01/2021 10:01 am) PATIENT INFO: ID #: [id number] : 42 (80 yrs)(F) Name: MILKA MENDIETA Visit Date: 06/01/2021 09:47 am PERFORMED BY: Performed By: Lana Gotti RDMS Attending: Marilee Hernández MD Referred By: MOLLY WALLIS [facility] Phy.: MOLLY WALLIS APRN Location: [place] SERVICE(S) PROVIDED: [facility] - Hepatology Protocol - Abdominal 75496 Limited Survey Single Organ or Quadrant - [id number] INDICATIONS: cirrhosis, screen for hcc ------ LIVER: [...] who have questions, please contact the health pet caregiver that requested your imaging first. Marilee Her, Staff Physician Electronically Signed Final Report 06/01/2021 10:01 am Molly Wallis APRN [facility] GEN ORDERAB LES documented in this encounter Visit Diagnoses Diagnosis Hepatic cirrhosis, unspecified hepatic cirrhosis type, unspecified whether ascites present Hepatic cirrhosis, unspecified hepatic cirrhosis type, unspecified whether ascites present documented in this encounter Care Teams Editor City Relationship Specialty Start Date End Date Salome Mcarthur APRN [address] [place] [address] PCP - General Family Medicine 05/30/15 12/11/23 documented as of this encounter
--- OUTSIDE RECORDS SUMMARY | 2024-04-16 15:41 | XMS_ITS | Encounter Summary ---
Author Organization [facility] [place] [address] Care Team Providers Care Workday Director Name Role Phone Salome Mcarthur APRN Primary Care Provider [phone] Encounter Details Date Type Department Care Team (Latest Contact Info) Description 12/06/2020 12:45 PM EDT Laboratory Appointment Lab [address] [place] [address] Hepatic cirrhosis, unspecified hepatic cirrhosis [...] 04/28/2024 11:00 AM EST App[place]ment [place] [address] Molly Cui [facility] [place] [address] 04/28/2024 2:00 PM EST Office [place] [address] Molly Cui [facility] [place] [address] documented as of this encounter [...] 12:34 PM EDT) Neutrophil % 50.1 % [facility] Neutrophil Absolute 2.66 1.70 - 6.10 x10(3)/[facility] Lymph % 36.7 % [facility] Lymphocytes Abs 2.0 0.9 - 3.2 x10(3)/[facility] Monocyte % 9.6 % [facility] Monocyte Abs 0.5 0.3 - 0.9 x10(3)/[facility] Eos % 2.6 % [facility] Eosinophils Abs 0.1 0.0 - 0.4 x10(3)/[facility] Basophil % 0.6 % [facility] Baso Absolute 0.0 0.0 - 0.1 x10(3)/[facility] Immature Gran % 0.40 % [facility] Comment: Immature granulocytes(IG's)percentage and absolute count will include metamyelocytes, myelocytes, and promyelocytes. Blood smears from CBCs yielding IG's will be scanned manually for concordance. If this scan disagrees with the automated IG or if promyelocytes are noted, a manual differential will be performed. Immature Gran Absolute 0.02 0.00 - 0.04 x10(3)/mcL [facility] Blood 12/06/2020 12:3 4 PM EDT 12/06/2020 12:44 PM EDT Narrative Resulting Agency Comment Spec In Lab Molly Cui APRN HEMATOLOGY ORDERAB LES [facility] [place] [address] * (ABNORMAL) Hemogram (12/06/2020 12:34 PM EDT) White Blood Cell 5.3 4.0 - 9.5 x10(3)/mc L [facility] Red Blood Cell 3.98(L) 4.00 - 5.21 x10(6)/mc L [facility] Hemoglobin 12.3 11.7 - 15.5 gm/dL [facility] Hematocrit 37.0 35.7 - 45.8 % [facility] Mean Cell Volume 93.0 82.6 - 94.4 [facility] Mean Cell Hemoglobin 30.9 27.1 - 32.0 pg [facility] Mean Cell Hemoglobin Concentration 33.2 31.7 - 35.0 gm/dL [facility] Platelet 93(L) 145 - 357 x10(3)/mc L [facility] RDW Standard Deviation 45.1 37.0 - 46.0 [facility] RDW coefficient of variation 13.2 11.5 - 14.1 % [facility] Mean Platelet Volume 11.4 7.6 - 12.9 [facility] NRBC% auto 0.0 % [facility] NRBC Absolute 0.000 0.000 - 0.000 x10(3)/mc L [facility] Blood 12/06/2020 12:3 4 PM EDT 12/06/2020 12:44 PM EDT Narrative Resulting Agency Comment Spec In Lab Molly Cui LORETO HEMATOLOGY ORDERAB LES [facility] [place] [address] * (ABNORMAL) Comprehensive metabolic panel (non-fasting) (12/06/2020 12:34 PM EDT) Glucose 90 65 - 199 mg/dL [facility] Comment:Diabetes: >=200 mg/d L plus symptoms Blood Urea Nitrogen 23(H) 8 - 18 mg/dL [facility] Creatinine 0.78 0.70 - 1.20 mg/dL [facility] Sodium 141 135 - 145 mmol/L [facility] Potassium 4.4 3.5 - 5.0 mmol/L [facility] Comment: Please note: ??Patients with WBC >100,000 may have falsely elevated Potassium levels. ??For accurate Potassium quantification in these patients send serum separator tube (gold top) for subsequent determinations. ??Contact the Clinical Chemistry Laboratory if there are any questions. Chloride 103 98 - 107 mmol/L [facility] Carbon Dioxide 26 22 - 31 mmol/L [facility] Anion Gap 12 5 - 15 mmol/L [facility] Calcium 10.2 8.5 - 10.5 mg/dL [facility] Protein, Total 6.9 6.1 - 8.0 gm/dL [facility] Albumin 4.2 3.2 - 5.2 gm/dL [facility] Aspartate Aminotransferase 35(H) 0 - 30 unit/L [facility] Alanine Aminotransferase 36(H) 0 - 30 unit/L [facility] Alkaline Phosphatase 82 35 - 105 unit/L [facility] Bilirubin, Total 0.7 0.2 - 1.3 mg/dL [facility] Est Glomerular Filtration Rate 72 >=60 mL/min/1. 73 m?? [facility] Comment: This patient? s estimated [...] ORDERABL ES Performing Organization Address [facility] Co de Phone Number [facility] [place] [address] * Prothrombin Time (12/06/2020 12:34 PM EDT) Prothrombin Time 11.9 9.4 - 12.5 sec [facility] International Normalization Ratio 1.0 [facility] Comment: An [...] ORDERAB LES Performing Organization Address [facility] Co de Phone Number [facility] [place] [address] documented in this encounter Visit Diagnoses Diagnosis Hepatic cirrhosis, unspecified hepatic cirrhosis type, unspecified whether ascites present documented in this encounter Care Teams Workday Director Relationship Specialty Start Date End Date Salome Mcarthur, [employer] HANA DEVELOPER [address] [place] [address] PCP - General Family Medicine 05/30/15 12/11/23 documented as of this encounter
--- OUTSIDE RECORDS SUMMARY | 2024-04-16 15:41 | XMS_ITS | Encounter Summary ---
Author Organization [facility] Address [facility] [place] [address] Care Team Providers Care Sales And Marketing Director Name Role Phone Salome Mcarthur APRN Primary Care Provider [phone] Reason for Visit * Auth/Cert Specialty Diagnoses [...] Expiration Date Visits Re quested Visits Authorized [id number] 1 1 Encounter Details Date Type Department Care Team (Late st Contact Info) Description 09/26/2020 2:30 PM EDT - 09/26/2020 3:00 PM EDT Surgery [place] [address] Braulio Bailey MD [facility] [place] [address] EGD, UPPER GI ENDOSCOPY (WRVU 2.09) Social [...] the day after the procedure, use an [id number]-[id number] spray to numb your throat. Sucking on [...] occurs, please contact your Doctor. Please call [phone] before 8pm Mon-Fri with problems, questions or concerns. If you call after 8pm or on weekends, call the Hospital at [phone] and ask to speak to the Airline Pilot Flight Instructor sales solutions associate and the hot press operator will contact that person for [...] can you learn more? [facility] ER- View your After Visit Summary and more online at [email or web address] If you would like to provide [...] cost to you. Content Version: 12.2 ?? [id number] [employer]. Care instructions adapted under license by [facility]. If you have questions about a medical condition or this instruction, always ask your healthcare professional. [employer] disclaims any warranty or liability for your [...] directed. 05/02/2020 fluticasone propionate (FLONASE) 50 mcg/actuation [place], Suspension 1 spray daily. pramipexole (MIRAPEX) 0.125 [...] Operative Note Patient Name: Milka Corbett : [id number] MR#: [id number] Case Date: 09/26/2020 Surgeon: Surgeon(s) and Role: * Braulio Bailey MD - Primary Procedure(s): EGD, UPPER GI ENDOSCOPY Please see Provation report for details. documented in this encounter Plan of Treatment Upcoming Encounters Date Type Department Care Team (Late st Contact Info) Description 04/28/2024 11:00 AM EST Appointment [place] [address] Molly Cui, [facility] [place] [address] 04/28/2024 2:00 PM EST Office [place] [address] Molly Cui, [facility] [place] [address] documented as of this encounter Procedures Procedure Name Priority Date/Time Associated Diagnosis Comments EGD, UPPER GI ENDOSCOPY (WRVU 2.09) 09/26/2020 2:12 PM EDT Hepatic cirrhosis, unspecified hepatic cirrhosis type, unspecified whether ascites present UPPER GI ENDOSCOPY Routine 09/26/2020 1: 55 PM EDT POCT GLUCOSE Routine 09/26/2020 1:42 PM EDT documented in this encounter Results * UPPER GI ENDOSCOPY (09/26/2020 1:55 PM EDT) [facility] UPPER GI ENDOSCOPY [facility] Endoscopy Procedure Date: 09/26/2020 1:55 PM ? Patient Name: Milka Corbett ? Date of : 1940 ? Age: 80 ? Order #: [id number] ? Instrument Name: [id number] LOANER ? Procedure: ? Upper GI endoscopy [...] Procedure Code(s): ?? --- Professional --- ? 70408, Esophagogastroduod enoscopy, ? flexible, transoral; diagnostic, ? including collection of specimen(s) ? by brushing or washing, when ? performed (separate procedure) Diagnosis Code(s): ?? --- Professional --- ? K29.70, Gastritis, unspecified, ? without bleeding ? 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 --- Technical --- ? K29.70, Gastritis, unspecified, ? without bleeding ? 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 All rights reserved. The codes documented in this report are preliminary and upon manager project management review may be revised to meet current compliance requirements. Attending Participation: ? I personally performed the entire procedure. ? Braulio Bailey, 09/26/2020 2:38:44 PM Number of Addenda: 0 Note Initiated On: 09/26/2020 1:55 PM [employer]ATION 09/26/2020 1:55 PM EDT Salome Mcarthur AGRICULTURAL EQUIPMENT SALES ENGINEER GENERAL SURGICAL OR DERABLES [employer] * POCT Glucose (09/26/2020 1:42 PM EDT) Glucose, POC 88 65 - 199 mg/dL [facility] Comment: Supplemental ranges: <140 mg/dL before meals <180 mg/dL all other times of the day Blood 09/26/2020 1:42 PM EDT 09/25/2020 12:00 PM EDT Jean Claude Chacon MD POINT OF CARE TEST O RDERABLES [facility] [place] [address] documented in this encounter Visit Diagnoses Diagnosis [...] RN) documented in this encounter Care Teams Sales And Marketing Director Relationship Specialty Start Date End Date Salome Mcarthur APRN [address] [place] [address] PCP - General Family Medicine 05/30/15 12/11/23 documented as of this encounter
--- OUTSIDE RECORDS SUMMARY | 2024-04-16 15:41 | XMS_ITS | Encounter Summary ---
Author Organization [facility] [place] [address] Care Team Providers Care Coater Operator Name Role Phone Salome Mcarthur APRN Primary Care Provider [phone] Encounter Details Date Type Department Care Team (Late st Contact Info) Description 06/16/2019 Telephone Gastroenterology at [facility] [place] [address] Emma Chavis Social History Tobacco Use Types [...] - 06/16/2019 10:15 AM EDT Milka Corbett [id number] Diagnosis/Indication: variceal screening 1. Have you ever [...] to patient: You must have a responsible libertarian who will drive you to your procedure, stay [place] for the entire duration of your procedure, and drive you home from your procedure? Height: 5'1 Weight: 142 BMI: 26.8 Age:78 y.o. documented in this encounter Plan of Treatment Upcoming Encounters Date Type Department Care Team (Late st Contact Info) Description 04/28/2024 11:00 AM EST Appointment [place] [address] Molly Cui, [facility] [place] [address] 04/28/2024 2:00 PM EST Office Visit [place] [address] Molly Cui, [facility] [place] [address] documented as of this encounter Visit Diagnoses Not on filedocumented in this encounter Care Teams Coater Operator Relationship Specialty Start Date End Date Salome Mcarthur APRN [address] [place] [address] PCP - General Family Medicine 05/30/15 12/11/23 documented as of this encounter
--- OUTSIDE RECORDS SUMMARY | 2024-04-16 15:41 | XMS_ITS | Encounter Summary ---
[place] [address] Care Team Providers Care Cooking Show Host Name Role Phone Salome Mcarthur APRN Primary Care Provider [phone] Reason for Referral * Diagnostic Test (Routine) - Closed Specialty Diagnoses / Procedures Referred By Contac t Referred To Contact Radiology Diagnoses Hepatic cirrhosis, unspecified hepatic cirrhosis type, unspecified whether ascites present Procedures MRI Abdomen wwo Contrast (Generic) Molly Cui APRN [facility] [place] [address] [place] [address] Referral ID Status Reason Start Date Expiration Date V isits Requested Visits Authorized [id number] Closed Specialty Service Requested 03/12/2019 03/11/2020 1 1 Reason for Visit * Diagnostic Test (Routine) - Closed Specialty Diagnoses / Procedures Referred By Contac t Referred To Contact Radiology Diagnoses Hepatic cirrhosis, unspecified hepatic cirrhosis type, unspecified whether ascites present Procedures MRI Abdomen wwo Contrast (Generic) Molly Cui APRN [facility] [address] [place] [address] Referral ID Status Reason Start Date Expiration Date V isits Requested Visits Authorized [id number] Closed Specialty Service Requested 03/12/2019 03/11/2020 1 1 Encounter Details Date Type Department Care Team (Latest Contact Info) Description 10/29/2019 3:21 PM EDT - 10/29/2019 11:59 PM EDT Hospital Encounter MRI at [facility], [place] [address] Molly Cui APRN [facility] [place] [address] Hepatic cirrhosis, unspecified hepatic cirrhosis type, unspecified [...] protection 06/06/2009 fluticasone propionate (FLONASE) 50 mcg/actuation [place], Suspension 1 spray daily. pramipexole (MIRAPEX) 0.125 [...] 11:00 AM EST Appointment [place] [address] Molly Cui, [facility] [place] [address] 04/28/2024 2:00 PM EST Office Visit [place] [address] Molly Cui, [facility] [address] documented as of this encounter Procedures Procedure [...] criteria and documentation are available online at https://www.acr.org/Clinical-Resources/Zjkrkbcxs-eas-Qihs-Systems/LI-RADS. This report utilizes LI-RADS version 2018. I [...] criteria and documentation are available online at https://www.acr.org/Clinical-Resources/Dresjwnoa-eoc-Kstt-Systems/LI-RADS.This report utilizes LI-RADS version 2018. I have [...] mLs documented in this encounter Care Teams Cooking Show Host Relationship Specialty Start Date End Date Salome Mcarthur APRN [address] [place] [address] PCP - General Family Medicine 05/30/15 12/11/23 documented as of this encounter
--- OUTSIDE RECORDS SUMMARY | 2024-04-16 15:41 | XMS_ITS | Encounter Summary ---
Author Organization [facility] [place] [address] Care Team Providers Care Office Machines Teacher Name Role Phone Salome Mcarthur APRN Primary Care Provider [phone] Encounter Details Date Type Department Care Team (Latest Contact Info) Description 05/19/2020 10:25 AM EST Laboratory Appointment Lab [address] [place] [address] Hepatic cirrhosis, unspecified hepatic cirrhosis [...] 04/28/2024 11:00 AM EST Appoint[place] [address] Molly Cui [facility] [place] [address] 04/28/2024 2:00 PM EST Office [place] [address] Molly Cui [facility] [place] [address] documented as of this encounter [...] 10:25 AM EST) Neutrophil % 63.1 % [facility] Neutrophil Absolute 6.16(H) 1.70 - 6.10 x10(3)/mc L [facility] Lymph % 25.5 % [facility] Lymphocytes Abs 2.5 0.9 - 3.2 x10(3)/mc L [facility] Monocyte % 8.1 % [facility] Monocyte Abs 0.8 0.3 - 0.9 x10(3)/mc L [facility] Eos % 2.5 % [facility] Eosinophils Abs 0.2 0.0 - 0.4 x10(3)/mc L [facility] Basophil % 0.5 % [facility] Baso Absolute 0.0 0.0 - 0.1 x10(3)/mc L [facility] Immature Gran % 0.30 % [facility] Comment: Immature granulocytes(IG's)percentage and absolute count will include metamyelocytes, myelocytes, and promyelocytes. Blood smears from CBCs yielding IG's will be scanned manually for concordance. If this scan disagrees with the automated IG or if promyelocytes are noted, a manual differential will be performed. Immature Gran Absolute 0.03 0.00 - 0.04 x10(3)/mc L [facility] Blood specimen (specimen) 05/19/2020 10:25 AM EST 05/19/2020 10:41 AM EST Narrative Resulting Agency Comment Spec In Lab Molly Cui APRN HEMATOLOGY ORDERAB LES [facility] [place] [address] * (ABNORMAL) Hemogram (05/19/2020 10:25 AM EST) White Blood Cell 9.8(H) 4.0 - 9.5 x10(3)/mc L [facility] Red Blood Cell 4.65 4.00 - 5.21 x10(6)/mc L [facility] Hemoglobin 14.1 11.7 - 15.5 gm/dL [facility] Hematocrit 42.8 35.7 - 45.8 % [facility] Mean Cell Volume 92.0 82.6 - 94.4 fL [facility] Mean Cell Hemoglobin 30.3 27.1 - 32.0 pg [facility] Mean Cell Hemoglobin Concentration 32.9 31.7 - 35.0 gm/dL [facility] Platelet 130(L) 145 - 357 x10(3)/mc L [facility] RDW Standard Deviation 43.8 37.0 - 46.0 fL [facility] RDW coefficient of variation 12.9 11.5 - 14.1 % [facility] Mean Platelet Volume 11.8 7.6 - 12.9 fL [facility] NRBC% auto 0.0 % [facility] NRBC Absolute 0.000 0.000 - 0.000 x10(3)/mc L [facility] Blood specimen (specimen) 05/19/2020 10:25 AM EST 05/19/2020 10:41 AM EST Narrative Resulting Agency Comment Spec In Lab Molly Cui MOTOR EQUIPMENT CAPTAIN HEMATOLOGY ORDERAB LES [facility] [place] [address] * (ABNORMAL) Comprehensive metabolic panel (non-fasting) (05/19/2020 [...] APRN CHEMISTRY ORDERABL ES Performing Organization Address [facility] Co de Phone Number [facility] [place] [address] * Prothrombin Time (05/19/2020 10:25 AM EST) [...] APRN HEMATOLOGY ORDERAB LES Performing Organization Address [facility] Co de Phone Number [facility] [place] [address] documented in this encounter Visit Diagnoses Diagnosis Hepatic cirrhosis, unspecified hepatic cirrhosis type, unspecified whether ascites present documented in this encounter Care Teams Office Machines Teacher Relationship Specialty Start Date End Date Salome Mcarthur, MOTOR EQUIPMENT CAPTAIN [address] [place] [address] PCP - General Family Medicine 05/30/15 12/11/23 documented as of this encounter
--- OUTSIDE RECORDS SUMMARY | 2024-04-16 15:41 | XMS_ITS | Encounter Summary ---
Author Organization [facility] [place] [address] Care Team Providers Care Senior Merchandiser Name Role Phone Salome Mcarthur APRN Primary Care Provider +1 [phone] Reason for Visit * Auth/Cert Specialty Diagnoses / Procedures Referred By Jose bermudez Referred To Contact Diagnoses 1 yr surv from 09/17/18 Procedures PRO UPPER GI ENDOSCOPY, DIAGNOSTIC EGD, UPPER GI ENDOSCOPY Referral ID Status Reason Start Date Expiration Date Visits Re quested Visits Authorized [id number] 1 1 Encounter Details Date Type Department Care Team (Latest Contact Info) Description 09/23/2019 10:29 AM EDT - 09/23/2019 2:07 PM EDT Hospital En[place] [phone] Juliette Chauhan MD [facility] [place] [address] Discharge Disposition: Home Social History Tobacco Use [...] the day after the procedure, use an qzmr-kak-nrfvsgg spray to numb your throat. Sucking on [...] occurs, please contact your Doctor. Please call [phone] before 8pm Mon-Fri with problems, questions or concerns. If you call after 8pm or on weekends, call the Hospital at [phone] and ask to speak to the [place] [employer] board of education secretary and the mechanical operator will contact that person for you. When should you call for help? Call [phone] anytime you think you may need emergency [...] any problems. Where can you learn more? [facility]- View your After Visit Summary and more online at [email or web address] If you would like to provide feedback about your hospital experience, please call the Office of Patient and Family Relations at . If you have received this After Visit Summary in error, please immediately return it in person to the department, or notify the [facility] Privacy Office by calling toll free at between the hours of 8AM and 5PM to arrange for our retrieval of the documents at no cost to you. Content Version: 12.2 ?? [id number] [employer]. Care instructions adapted under license by [facility]. If you have questions about a medical condition or this instruction, always ask your healthcare professional. [employer] disclaims any warranty or liability for your use of this information. documented in this encounter Medications at Time of Discharge Medication Sig Dispensed Refills Start Date End Date lisinopriL (Zestril) 10 mg tablet Take 1 tablet by mouth once a day for kidney protection 06/06/2009 fluticasone propionate (FLONASE) 50 mcg/actuation [place], Suspension 1 spray daily. pramipexole (MIRAPEX) 0.125 [...] 04/28/2024 11:00 AM [place] [address] Molly Cui, [facility] [address] 04/28/2024 2:00 PM EST Office [place] [address] Molly Cui, [facility] [place] [address] documented as of this encounter Procedures Procedure Name Priority Date/Time Associated Diagnosis Comments Upper GI Endoscopy, Diagnostic (12555) 09/23/2019 11:55 AM EDT 1 yr surv from 09/17/18 UPPER GI ENDOSCOPY Routine 09/23/2019 11 :41 AM EDT documented in this encounter Results * UPPER GI ENDOSCOPY (09/23/2019 11:41 AM EDT) [facility] UPPER GI ENDOSCOPY [facility] Endoscopy Procedure Date: 09/23/2019 11:41 AM ? Patient Name: Milka Corbett ? Date of : 1940 ? Age: 79 ? Order #: [id number] ? Instrument Name: [id number] ? Procedure: ? Upper GI endoscopy Indications: ? Follow-up of esophageal varices Providers: ? Juliette Chauhan MD, Bertha Lizarraga ? TRISHA Oleary, Fauzia Castillo ? TRISHA Kang, Genoveva Webber, Fashion Merchandiser Referring MD: ?Sohpia Mcarthur MD Medicines: ? Midazolam 2 mg [...] Procedure Code(s): ?? --- Professional --- ? 83010, Esophagogastroduod enoscopy, ? flexible, transoral; diagnostic, ? including collection of specimen(s) ? by brushing or washing, when ? performed (separate procedure) CPT copyright 2019 [employer]. All rights reserved. The codes documented in this report are preliminary and upon vp biology review may be revised to meet current compliance requirements. Attending Participation: ? I personally performed the entire procedure. ? Juliette Chauhan MD Juliette Chauhan MD 09/23/2019 12:19:55 PM This report has been signed electronically. Number of Addenda: 0 Note Initiated On: 09/23/2019 11:41 AM PROVATION 09/23/2019 11:4 1 AM EDT Salome Mcarthur BROADCAST OPERATIONS ENGINEER GENERAL SURGICAL OR DERABLES PROVATION documented [...] Fauzia Kang RN)1202 (Given - Provider: Fauzia Knag RN) documented in this encounter Care Teams Senior Merchandiser Relationship Specialty Start Date End Date Salome Mcarthur APRN [address] [place] [address] PCP - General Family Medicine 05/30/15 12/11/23 documented as of this encounter
--- OUTSIDE RECORDS SUMMARY | 2024-04-16 15:41 | XMS_ITS | Encounter Summary ---
Author Organization [facility] Address [facility] [place] [address] Care Team Providers Care Tentmaker Name Role Phone Salome Mcarthur APRN Primary Care Provider +[phone] Encounter Details Date Type Department Care Team (Late st Contact Info) Description 05/26/2020 Telephone [place] [phone] Sandra Aguilar Social History Tobacco Use Types [...] - 05/26/2020 10:27 AM EST Milka Corbett [id number] Diagnosis/Indication: cirrhosis, screen for varices. small varices [...] to patient: You must have a responsible republican who will drive you to your procedure, [...] 04/28/2024 11:00 AM [place] [address] Molly Cui LIVESTOCK BUYER [facility] [place] [address] 04/28/2024 2:00 PM EST Office [place] [address] Molly Cui LIVESTOCK BUYER [facility] [place] [address] documented as of this encounter Visit Diagnoses Not on filedocumented in this encounter Care Teams Tentmaker Relationship Specialty Start Date End Date Salome Mcarthur APRN [address] [place] [address] PCP - General Family Medicine 05/30/15 12/11/23 documented as of this encounter
--- OUTSIDE RECORDS SUMMARY | 2024-04-16 15:41 | XMS_ITS | Encounter Summary ---
Author Organization [facility] [place] [address] Care Team Providers Care Newspaper Delivery Driver Name Role Phone Salome Mcatrhur APRN Primary Care Provider [phone] Encounter Details Date Type Department Care Team (Latest Contact Info) Description 03/12/2019 11:30 AM EST Laboratory Appointment Lab [address] [place] [address] Hepatic cirrhosis, unspecified hepatic cirrhosis [...] 04/28/2024 11:00 AM EST Appointment [place] [address] Molly Cui [facility] [place] [address] 04/28/2024 2:00 PM EST Office [place] [address] Molly Cui [facility] [place] [address] documented as of this encounter [...] 11:39 AM EST) Neutrophil % 57.5 % [facility] Neutrophil Absolute 4.18 1.70 - 6.10 x10(3)/[facility] LABORATORY Lymph % 31.5 % [facility] Lymphocytes Abs 2.3 0.9 - 3.2 x10(3)/[facility] LABORATORY Monocyte % 7.9 % [facility] Monocyte Abs 0.6 0.3 - 0.9 x10(3)/[facility] LABORATORY Eos % 2.1 % [facility] Eosinophils Abs 0.2 0.0 - 0.4 x10(3)/[facility] LABORATORY Basophil % 0.7 % [facility] Baso Absolute 0.0 0.0 - 0.1 x10(3)/[facility] LABORATORY Immature Gran % 0.30 [...] HEMATOLOGY ORDERAB LES [facility] [place] [address] * (ABNORMAL) Hemogram (03/12/2019 11:39 AM EST) [...] Lab Molly Cui LORETO HEMATOLOGY ORDERAB LES [facility] [place] [address] * (ABNORMAL) Comprehensive metabolic panel (non-fasting) (03/12/2019 [...] of body mass or the acutely ill. [email or web address] VINITAnkf eGFR 100 >=60 mL/min/1. 73 m?? [facility] Comment: The eGFR was calculated using the CKD-EPI equation. As with all creatinine based estimates of kidney function, eGFR values calculated with the CKD-EPI equation are not accurate in patients with acute kidney failure, extremes of body mass or the acutely ill. [email or web address]://Guidefitter/[facility] Blood specimen (specimen) 03/12/2019 11:39 AM EST 03/12/2019 11:53 AM EST Narrative Resulting Agency Comment Spec In Lab Molly Cui APRN CHEMISTRY ORDERABL ES Performing Organization Address [facility] Co de Phone Number [facility] [place] [address] * (ABNORMAL) Prothrombin Time (03/12/2019 11:39 AM [...] APRN HEMATOLOGY ORDERAB LES Performing Organization Address [facility]/ZIP Co de Phone Number [facility] [place] [address] documented in this encounter Visit Diagnoses Diagnosis Hepatic cirrhosis, unspecified hepatic cirrhosis type, unspecified whether ascites present documented in this encounter Care Teams Newspaper Delivery Driver Relationship Specialty Start Date End Date Salome Mcarthur, ASSEMBLER INSULATOR [address] [place] [address] PCP - General Family Medicine 05/30/15 12/11/23 documented as of this encounter
--- OUTSIDE RECORDS SUMMARY | 2024-04-16 15:41 | XMS_ITS | Encounter Summary ---
Author Organization [facility] Address [facility] [place] [address] Care Team Providers Care Resident Surgeon Name Role Phone Salome Mcarthur APRN Primary Care Provider [phone] Encounter Details Date Type Department Care Team (Latest Contact Info) Description 10/30/2019 10:30 AM EDT TH Visit (TeleHealth) [place] [address] Molly Cui APRN [facility] [place] [address] Hepatic cirrhosis, unspecified hepatic cirrhosis type, unspecified [...] daily. ??? fluticasone propionate (FLONASE) 50 mcg/actuation [place], Suspension 1 spray daily. ??? pramipexole (MIRAPEX) [...] mouth as needed. Reported on 08/21/2016 ??? [place]-3 Fatty Acids-Vitamin E (FISH OIL) 1,000 mg [...] and a large extended family. Sister of AB cirrhosis at age 64 Does not drink [...] Cui APRN Section of Gastroenterology [place] [address] Copy: Salome Mcarthur APRN [address] / [place] [employer] [address] Patient verbally consents to this telephone visit [...] 11:00 AM EST Appointment [place] [address] Molly Cui [facility] [place] [address] 04/28/2024 2:00 PM EST Office Visit [place] [address] Molly Cui [facility] [place] [address] documented as of this encounter Visit Diagnoses Diagnosis Hepatic cirrhosis, unspecified hepatic cirrhosis type, unspecified whether ascites present documented in this encounter Care Teams Resident Surgeon Relationship Specialty Start Date End Date Salome Mcarthur APRN [address] [place] [address] PCP - General Family Medicine 05/30/15 12/11/23 documented as of this encounter
--- OUTSIDE RECORDS SUMMARY | 2024-04-16 15:42 | XMS_ITS | Encounter Summary ---
[place] [address] Care Team Providers Care Heel Cover Splitter Name Role Phone Salome Mcarthur APRN Primary Care Provider [phone] Encounter Details Date Type Department Care Team (Late st Contact Info) Description 09/04/2017 Orders [place] [address] Evy Howard Social History Tobacco Use Types [...] 04/28/2024 11:00 AM [place] [phone] [facility] [place] [address] 04/28/2024 2:00 PM EST Office [place] [address] [facility] [place] [address] documented as of this encounter Visit Diagnoses Not on filedocumented in this encounter Care Teams Heel Cover Splitter Relationship Specialty Start Date End Date Salome Mcarthur, LORETO [address] [place] [address] PCP - General Family Medicine 05/30/15 12/11/23 documented as of this encounter
--- OUTSIDE RECORDS SUMMARY | 2024-04-16 15:42 | XMS_ITS | Encounter Summary ---
[place] [address] Care Team Providers Care Radiologic Technician Name Role Phone Salome Mcarthur APRN Primary Care Provider [phone] Reason for Referral * Diagnostic Test (Routine) - Closed Specialty Diagnoses / Procedures Referred By Contac t Referred To Contact Radiology Diagnoses Hepatic cirrhosis, unspecified hepatic cirrhosis type, unspecified whether ascites present Procedures MRI Abdomen wwo Contrast (Generic) Molly Cui APRN [facility] [place] [address] [place] [address] Referral ID Status Reason Start Date Expiration Date V isits Requested Visits Authorized [id number] Closed Specialty Service Requested 07/14/2018 07/14/2019 1 1 Reason for Visit * Diagnostic Test (Routine) - Closed Specialty Diagnoses / Procedures Referred By Contac t Referred To Contact Radiology Diagnoses Hepatic cirrhosis, unspecified hepatic cirrhosis type, unspecified whether ascites present Procedures MRI Abdomen wwo Contrast (Generic) Molly Cui APRN [facility] [place] [address] [place] [address] Referral ID Status Reason Start Date Expiration Date V isits Requested Visits Authorized [id number] Closed Specialty Service Requested 07/14/2018 07/14/2019 1 1 Encounter Details Date Type Department Care Team (Latest Contact Info) Description 09/10/2018 11:50 AM EDT - 09/10/2018 11:59 PM EDT Hospital Encounter MRI [place] [facility] [place] [address] Molly Cui [address]N [facility] [place] [address] Hepatic cirrhosis, unspecified hepatic cirrhosis type, unspecified [...] protection 06/06/2009 fluticasone propionate (FLONASE) 50 mcg/actuation [place], Suspension 1 spray daily. pramipexole (MIRAPEX) 0.125 [...] 04/28/2024 11:00 AM EST [place] [address] Molly Cui, [facility] [place] [address] 04/28/2024 2:00 PM EST Office [place] [address] Molly Cui [facility] [place] [address] documented as of this encounter Procedures Procedure [...] mLs documented in this encounter Care Teams Radiologic Technician Relationship Specialty Start Date End Date Salome Mcarthur APRN [address] [place] [address] PCP - General Family Medicine 05/30/15 12/11/23 documented as of this encounter
--- OUTSIDE RECORDS SUMMARY | 2024-04-16 15:42 | XMS_ITS | Encounter Summary ---
Author Organization [facility] Address [facility] [place] [address] Care Team Providers Care Service Inspector Name Role Phone Salome Mcarthur APRN Primary Care Provider [phone] Reason for Visit * Reason Onset Date Comments Other 05/30/2018 Encounter Details Date Type Department Care Team (Late st Contact Info) Description 05/30/2018 Telephone [place] [address] Nelsy Menezes Other Social History Tobacco Use [...] detailed message? Yes Preferred method of communication: [phone] documented in this encounter Plan of Treatment Upcoming Encounters Date Type Department Care Team (Late st Contact Info) Description 04/28/2024 11:00 AM EST [place] [phone] Molly Cui, [facility] [place] [address] 04/28/2024 2:00 PM EST Office [place] [address] Molly Cui, [facility] [place] [address] documented as of this encounter Visit Diagnoses Not on filedocumented in this encounter Care Teams Service Inspector Relationship Specialty Start Date End Date Salome Mcarthur APRN [address] [place] [address] PCP - General Family Medicine 05/30/15 12/11/23 documented as of this encounter
--- OUTSIDE RECORDS SUMMARY | 2024-04-16 15:42 | XMS_ITS | Encounter Summary ---
Author Organization [facility] [place] [address] Care Team Providers Care Hypo Splasher Name Role Phone Salome Mcarthur APRN Primary Care Provider [phone] Reason for Visit * Auth/Cert Specialty Diagnoses / Procedures Referred By Jose t Referred To Contact Diagnoses cirrhosis,screening for varices (IVCS) prep: proclear Procedures PRO UPPER GI ENDOSCOPY, DIAGNOSTIC EGD, UPPER GI ENDOSCOPY Referral ID Status Reason Start Date Expiration Date Visits Re quested Visits Authorized [id number] 1 1 Encounter Details Date Type Department Care Team (Latest Contact Info) Description 09/17/2018 8:19 AM EDT - 09/17/2018 11:25 AM EDT Hospital En[place] [address] Juliette Chauhan MD [facility] [place] [address] Discharge Disposition: Home Social History Tobacco Use [...] better as expected. Saturday-Saturday Same Day Endo [phone] 7a-8p Otherwise contact [phone] and ask to speak to the rag sorter and cutter preparation plant repairer Follow-up care is a palomo part of your treatment and safety. Be sure to make and go to all appointments, and call your doctor if you are having problems. Instructions have been reviewed and patient expresses understanding Please call [phone] before 8pm Sat-Sat with problems, questions or concerns. If you call after 8pm or on weekends, call the Hospital at [phone] and ask to speak to the Die Setter preparation plant repairer and the metalizing machine operator automatic will contact that person for you. UPPER [...] WHEN SHOULD YOU CALL FOR HELP? Call [phone] anytime you think that you need emergency [...] better as expected. Saturday-Saturday Same Day Endo [phone] 7a-8p Otherwise contact [phone] and ask to speak to the rag sorter and cutter preparation plant repairer Follow-up care is a palomo part of [...] protection 06/06/2009 fluticasone propionate (FLONASE) 50 mcg/actuation [place], Suspension 1 spray daily. pramipexole (MIRAPEX) 0.125 [...] patient. Consent signed. Electronically signed by: Kehinde Matrin Gastroenterology Fellow [facility] [place] Pager [phone] 09/17/2018 documented in this encounter Plan of Treatment Upcoming Encounters Date Type Department Care Team (Late st Contact Info) Description 04/28/2024 11:00 AM [place] [address] Molly Cui, [facility] [place] [address] 04/28/2024 2:00 PM EST Office [place] [phone] Molly Cui, [facility] [place] [address] documented as of this encounter Procedures Procedure Name Priority Date/Time Associated Diagnosis Comments EGD, UPPER GI ENDOSCOPY (WRVU 2.09) 09/17/2018 10:04 AM EDT cirrhosis,screening for varices (IVCS) prep: proclear UPPER GI ENDOSCOPY Routine 09/17/2018 9: 58 AM EDT documented in this encounter Results * UPPER GI ENDOSCOPY (09/17/2018 9:58 AM EDT) UPPER GI ENDOSCOPY [facility] Endoscopy Procedure Date: 09/17/2018 9:58 AM ? Patient Name: Milka Corbett ? Date of : 1940 ? Age: 78 ? Order #: [id number] ? Instrument Name: [id number] ? Procedure: ? Upper GI endoscopy Indications: [...] the physician, the nurse ? and the medical technician assistant. The procedure was ? verified in the [...] Procedure Code(s): ?? --- Professional --- ? 91210, Esophagogastroduod enoscopy, ? flexible, transoral; diagnostic, ? including collection of specimen(s) ? by brushing or washing, when ? performed (separate procedure) CPT copyright 2017 [employer]. All rights reserved. The codes documented in this report are preliminary and upon diamond wheel edger review may be revised to meet current compliance requirements. Attending Participation: ? I was present and participated during the entire ? procedure, including non-palomo portions. ? Juliette Zoey Tien, 09/17/2018 10:32:25 AM Number of Addenda: 0 Note Initiated On: 09/17/2018 9:58 AM PROVATION 09/17/2018 9:58 AM EDT Salome Mcarthur SENIOR PASTOR GENERAL SURGICAL OR DERABLES PROVATION documented in [...] RN) documented in this encounter Care Teams Hypo Splasher Relationship Specialty Start Date End Date Salome Mcarthur, LORETO [address] [place] [address] PCP - General Family Medicine 05/30/15 12/11/23 documented as of this encounter
--- OUTSIDE RECORDS SUMMARY | 2024-04-16 15:42 | XMS_ITS | Encounter Summary ---
Author Organization [facility] Address [facility] [place] [address] Care Team Providers Care Farm Machinery Set Up Mechanic Name Role Phone Salome Mcarthur APRN Primary Care Provider Encounter Details Date Type Department Care Team (Latest Contact Info) Description 02/26/2018 8:42 AM EST - 02/26/2018 11:59 PM [facility] Hospital [place] [phone] Molly Wallis [facility] [place] [address] Hepatic cirrhosis, unspecified hepatic cirrhosis type, unspecified [...] 04/28/2024 11:00 AM EST [place] [address] Molly Wallis, [facility] [place] [address] 04/28/2024 2:00 PM EST Office [place] [address] Molly Wallis, [facility] [address] documented as of this encounter Procedures Procedure [...] 10:11 am) PATIENT INFO: ID #: ? [id number] ?: ??[birth year] (77 yrs) Name: ? MILKA MENDIETA ?Visit Date: 02/26/2018 09:24 am PERFORMED BY: Performed By: ? Gabi Mtz RDMS Attending: ?Lily GALLO, Jean Claude Lancaster Referred By: ?MOLLY WALLIS Location: ? [place] SERVICE(S) PROVIDED: ??UABDLIM - Abdominal Limited Survey Single ? [id number] ??Organ or Quadrant - [id number] INDICATIONS: ??Compensated cirrhosis, assess for HCC COMPARISON: [...] 02/26/2018 10:11 am) PATIENT INFO: ID #: [id number] : [birth year] (77 yrs) Name: MILKA MENDIETA Visit Date: 02/26/2018 09:24 am PERFORMED BY: Performed By: Gabi Mtz RDMS Attending: Jean Claude Bautista MD Referred By: MOLLY WALLIS Location: [place] SERVICE(S) PROVIDED: UABDLIM - Abdominal Limited Survey Single 80556 Organ or Quadrant - [id number] INDICATIONS: Compensated cirrhosis, assess for HCC COMPARISON: [...] present documented in this encounter Care Teams Farm Machinery Set Up Mechanic Relationship Specialty Start Date End Date Salome Mcarthur APRN [address] [place] [address] PCP - General Family Medicine 05/30/15 12/11/23 documented as of this encounter
--- OUTSIDE RECORDS SUMMARY | 2024-04-16 15:42 | XMS_ITS | Encounter Summary ---
Author Organization [facility] [place] [address] Care Team Providers Care Surgical Tech Name Role Phone Salome Mcarthur APRN Primary Care Provider [phone] Encounter Details Date Type Department Care Team (Late st Contact Info) Description 10/24/2017 Telephone [place] [address] Molly Wallis APRN [facility] [place] [address] Social History Tobacco Use Types Packs/Day Years [...] MOLLY WALLIS APRN PCP: Salome Mcarthur APRN [phone] documented in this encounter Plan of Treatment Upcoming Encounters Date Type Department Care Team (Late st Contact Info) Description 04/28/2024 11:00 AM EST Appointment [place] [phone] Molly Wallis [facility] [address] 04/28/2024 2:00 PM EST Office Visit [place] [phone] Molly Wallis [facility] [address] documented as of this encounter Results * AFP tumor marker (02/26/2018 10:02 AM EST) Alpha Fetoprotein 4.3 <=8.3 ng/mL [facility] Blood specimen (specimen) 02/26/2018 10:02 AM EST 02/26/2018 10:15 AM EST Narrative Resulting Agency Comment Spec In Lab Molly Wallis APRN CHEMISTRY ORDERABL ES [facility] [place] [address] * Prothrombin Time (02/26/2018 10:02 AM EST) [...] Lab Molly Wallis [facility] HEMATOLOGY ORDERAB LES [facility] [place] [address] * (ABNORMAL) Comprehensive metabolic panel (non-fasting) (02/26/2018 10:02 AM EST) Glucose 137 65 - 199 mg/dL [facility] Comment:Diabetes: >=200 mg/d L plus symptoms Blood Urea Nitrogen 20(H) 8 - 18 mg/dL [facility] Creatinine 0.64(L) 0.70 - 1.20 mg/dL [facility] Sodium 141 135 - 145 mmol/L [facility] Potassium 4.3 3.5 - 5.0 mmol/L [facility] Comment: Please note: ??Patients with WBC >100,000 may have falsely elevated Potassium levels. ??For accurate Potassium quantification in these patients send serum separator tube (gold top) for subsequent determinations. ??Contact the Clinical Chemistry Laboratory if there are any questions. Chloride 101 98 - 107 mmol/L [facility] Carbon Dioxide 24 22 - 31 mmol/L [facility] Anion Gap 16(H) 5 - 15 mmol/L [facility] Calcium 10.0 8.5 - 10.5 mg/dL [facility] Protein, Total 7.7 6.1 - 8.0 gm/dL [facility] Albumin 4.5 3.2 - 5.2 gm/dL [facility] Aspartate Aminotransferase 24 0 - 30 unit/L [facility] Alanine Aminotransferase 28 0 - 30 unit/L [facility] Alkaline Phosphatase 81 40 - 104 unit/L [facility] Bilirubin, Total 0.4 0.2 - 1.3 mg/dL [facility] Est Glomerular Filtration Rate 87 >=60 mL/min/1. 73 m?? [facility] Comment: The eGFR was calculated using the CKD-EPI equation. As with all creatinine based estimates of kidney function, eGFR values calculated with the CKD-EPI equation are not accurate in patients with acute kidney failure, extremes of body mass or the acutely ill. http://[employer]/[facility] TULSAnkf eGFR 100 >=60 mL/min/1. 73 m?? [facility] Comment: The eGFR was calculated using the CKD-EPI equation. As with all creatinine based estimates of kidney function, eGFR values calculated with the CKD-EPI equation are not accurate in patients with acute kidney failure, extremes of body mass or the acutely ill. http://[employer]/DHnkf Blood specimen (specimen) 02/26/2018 10:02 AM EST 02/26/2018 10:15 AM EST Narrative Resulting Agency Comment Spec In Lab Molly Wallis APRN CHEMISTRY ORDERABL ES Performing Organization Address City/State/[facility] Co de Phone Number [facility] [place] [phone] * US Abdomen Limited (02/26/2018 9:27 AM [...] 10:11 am) PATIENT INFO: ID #: ? [id number] ?: ??[birth year] (77 yrs) Name: ? MILKA MENDIETA ?Visit Date: 02/26/2018 09:24 am PERFORMED BY: Performed By: ? Gabi Mtz RDMS Attending: ?Lily GALLO, Jean Claude Lancaster Referred By: ?MOLLY WALLIS Location: ? [place] SERVICE(S) PROVIDED: ??UABDLIM - Abdominal Limited Survey Single ? [id number] ??Organ or Quadrant - [id number] INDICATIONS: ??Compensated cirrhosis, assess for HCC COMPARISON: [...] 02/26/2018 10:11 am) PATIENT INFO: ID #: [id number] : 42 (77 yrs) Name: MILKA MENDIETA Visit Date: 02/26/2018 09:24 am PERFORMED BY: Performed By: Gabi Mtz RDMS Attending: Jean Claude Bautista MD Referred By: MOLLY WALLIS Location: [place] SERVICE(S) PROVIDED: UABDLIM - Abdominal Limited Survey Single 87694 Organ or Quadrant - [id number] INDICATIONS: Compensated cirrhosis, assess for HCC COMPARISON: [...] Report 02/26/2018 10:11 am Molly Wallis [facility]N [facility] ORDERAB LES documented in this encounter Visit Diagnoses Diagnosis Hepatic cirrhosis, unspecified hepatic cirrhosis type, unspecified whether ascites present Hepatic cirrhosis, unspecified hepatic cirrhosis type, unspecified whether ascites present documented in this encounter Care Teams Surgical Tech Relationship Specialty Start Date End Date Salome Mcarthur APRN [address] [place] [address] PCP - General Family Medicine 05/30/15 12/11/23 documented as of this encounter
--- OUTSIDE RECORDS SUMMARY | 2024-04-16 15:42 | XMS_ITS | Encounter Summary ---
Author Organization [place] [address] Care Team Providers Care Net Developer Software Engineer C Name Role Phone Salome Mcarthur APRN Primary Care Provider [phone] Encounter Details Date Type Department Care Team (Late st Contact Info) Description 09/10/2018 Telephone Cardiology at [address] [phone] Laura Pike Social History Tobacco Use Types [...] 04/28/2024 11:00 AM EST [place] [address] Molly Cui APRN [facility] [place] [address] 04/28/2024 2:00 PM EST Office [place] [address] Molly Cui APRN [facility] [place] [address] documented as of this encounter Visit Diagnoses Not on filedocumented in this encounter Care Teams Net Developer Software Engineer C Relationship Specialty Start Date End Date Salome Mcarthur APRN [address] [place] [address] PCP - General Family Medicine 05/30/15 12/11/23 documented as of this encounter
--- OUTSIDE RECORDS SUMMARY | 2024-04-16 15:42 | XMS_ITS | Encounter Summary ---
Author Organization [facility] Address [facility] [place] [address] Care Team Providers Care Spring Maker Name Role Phone Salome Mcarthur APRN Primary Care Provider [phone] Encounter Details Date Type Department Care Team (Latest Contact Info) Description 10/17/2017 - 10/17/2017 11:59 PM EDT Hospital Encounter Radiology Library at [facility] [place] [address] Molly Cui INSPECTOR LINE [facility] [place] [address] Discharge Disposition: Home Social History Tobacco Use [...] by mouth. 02/24/2009 fluticasone (FLONASE) 50 mcg/actuation [place], Suspension 1 spray by Each Nare route [...] 04/28/2024 11:00 AM [place] [address] Molly Cui APRN [facility] [place] [address] 04/28/2024 2:00 PM EST Office [place] [phone] Molly Cui APRN [facility] [place] [address] documented as of this encounter Procedures Procedure [...] FILM LIBRARY O RDERABLES Performing Organization Address City/State/[facility] Co de Phone Number [place], [place] documented in this encounter Visit Diagnoses Not on filedocumented in this encounter Care Teams Spring Maker Relationship Specialty Start Date End Date Salome Mcarthur APRN [address] [place] [address] PCP - General Family Medicine 05/30/15 12/11/23 documented as of this encounter
--- OUTSIDE RECORDS SUMMARY | 2024-04-16 15:42 | XMS_ITS | Encounter Summary ---
[place] [address] Care Team Providers Care Fire Apparatus Sprinkler Inspector Name Role Phone Salome Mcarthur APRN Primary Care Provider [phone] Encounter Details Date Type Department Care Team (Late st Contact Info) Description 10/17/2017 External Results [place] [phone] Malika Cantrell RN Social History Tobacco Use [...] 04/28/2024 11:00 AM EST [place] [address] Molly Cui [facility] [place] [address] 04/28/2024 2:00 PM EST Office [place] [address] Molly Cui [facility] [place] [address] documented as of this encounter Procedures Procedure [...] on filedocumented in this encounter Care Teams Fire Apparatus Sprinkler Inspector Relationship Specialty Start Date End Date Salome Mcarthur, GLAZE MIXER [facility] [address] [place] [address] PCP - General Family Medicine 05/30/15 12/11/23 documented as of this encounter
--- OUTSIDE RECORDS SUMMARY | 2024-04-16 15:42 | XMS_ITS | Encounter Summary ---
[place] [address] Care Team Providers Care Filleter Name Role Phone Salome Mcarthur APRN Primary Care Provider [phone] Reason for Referral * Diagnostic Test (Routine) - Closed Specialty Diagnoses / Procedures Referred By Contac t Referred To Contact Radiology Diagnoses Hepatic cirrhosis, unspecified hepatic cirrhosis type, unspecified whether ascites present Procedures MRI Abdomen wwo Contrast (Generic) Molly Cui APRN [facility] [place] [address] [place] [address] Referral ID Status Reason Start Date Expiration Date V isits Requested Visits Authorized [id number] Closed Specialty Service Requested 02/26/2018 02/26/2019 1 1 Reason for Visit * Diagnostic Test (Routine) - Closed Specialty Diagnoses / Procedures Referred By Contac t Referred To Contact Radiology Diagnoses Hepatic cirrhosis, unspecified hepatic cirrhosis type, unspecified whether ascites present Procedures MRI Abdomen wwo Contrast (Generic) Molly Cui APRN [facility] [place] [address] [place] [address] Referral ID Status Reason Start Date Expiration Date V isits Requested Visits Authorized [id number] Closed Specialty Service Requested 02/26/2018 02/26/2019 1 1 Encounter Details Date Type Department Care Team (Latest Contact Info) Description 03/08/2018 10:57 AM EST - 03/08/2018 11:59 PM EST Hospital Encounter MRI at [facility] [place] [address] Molly Cui, BARN MANAGER [facility] [place] [address] Hepatic cirrhosis, unspecified hepatic cirrhosis type, unspecified [...] 04/28/2024 11:00 AM [place] [phone] Molly Cui, [facility] [place] [address] 04/28/2024 2:00 PM EST Office [place] [phone] Molly Cui, [facility] [place] [address] documented as of this encounter Procedures Procedure [...] demonstrate a somewhat reticular pattern of high [id number] intensity most pronounced in the inferior right [...] made given differences in technique. Recommend reference [facility] CT report for management guidelines. [...] mLs documented in this encounter Care Teams Filleter Relationship Specialty Start Date End Date Salome Mcarthur APRN [address] [place] [address] PCP - General Family Medicine 05/30/15 12/11/23 documented as of this encounter
--- OUTSIDE RECORDS SUMMARY | 2024-04-16 15:42 | XMS_ITS | Encounter Summary ---
Author Organization [facility] [place] [address] Care Team Providers Care First Aid Director Name Role Phone Salome Mcarthur APRN Primary Care Provider [phone] Encounter Details Date Type Department Care Team (Latest Contact Info) Description 08/22/2017 10:30 AM EDT Laboratory Appointment Lab [address] [place] [address] NAFLD (nonalcoholic fatty liver disease) [...] AM EST [place] [address] Molly Cui [facility] [place] [address] 04/28/2024 2:00 PM EST Office [place] [address] Molly Cui [facility] [place] [address] documented as of this encounter Procedures Procedure [...] 10:25 AM EDT) Neutrophil % 52.1 % [facility] Neutrophil Absolute 2.92 1.70 - 6.10 x10(3)/[facility] Lymph % 35.9 % [facility] Lymphocytes Abs 2.0 0.9 - 3.2 x10(3)/[facility] Monocyte % 9.1 % [facility] Monocyte Abs 0.5 0.3 - 0.9 x10(3)/[facility] Eos % 1.8 % [facility] Eosinophils Abs 0.1 0.0 - 0.4 x10(3)/[facility] Basophil % 0.7 % [facility] Baso Absolute 0.0 0.0 - 0.1 x10(3)/[facility] Immature Gran % 0.40 % [facility] [...] 0.04 x10(3)/mcL [facility] Blood specimen (specimen) 08/22/2017 10:25 AM EDT 08/22/2017 10:43 AM EDT Narrative Resulting Agency Comment Spec In Lab Molly Cui [facility] HEMATOLOGY ORDERAB LES [facility] [place] [address] * (ABNORMAL) Hemogram (08/22/2017 10:25 AM EDT) White Blood Cell 5.6 4.0 - 9.5 x10(3)/mc L [facility] Red Blood Cell 4.42 4.00 - 5.21 x10(6)/mc L [facility] Hemoglobin 14.0 11.7 - 15.5 gm/dL [facility] Hematocrit 40.5 35.7 - 45.8 % [facility] Mean Cell Volume 91.6 82.6 - 94.4 fL [facility] Mean Cell Hemoglobin 31.7 27.1 - 32.0 pg [facility] Mean Cell Hemoglobin Concentration 34.6 31.7 - 35.0 gm/dL [facility] Platelet 118(L) 145 - 357 x10(3)/mc L [facility] RDW Standard Deviation 42.4 37.0 - 46.0 [facility] RDW coefficient of variation 12.6 11.5 - 14.1 % [facility] Mean Platelet Volume 11.9 7.6 - 12.9 fL [facility] NRBC% auto 0.0 % [facility] NRBC Absolute 0.000 0.000 - 0.000 x10(3)/mc L [facility] Blood specimen (specimen) 08/22/2017 10:25 AM EDT 08/22/2017 10:43 AM EDT Narrative Resulting Agency Comment Spec In Lab Molly Cui APRN HEMATOLOGY ORDERAB LES Performing Organization Address [facility] Co de Phone Number [facility] [place] [address] * Prothrombin Time (08/22/2017 10:25 AM EDT) Pathologist [facility] Prothrombin Time 11.7 9.4 - 12.5 sec [facility] APRN HEMATOLOGY ORDERAB LES Performing Organization Address [facility] Co de Phone Number [facility] [place] [address] * (ABNORMAL) Comprehensive metabolic panel (non-fasting) (08/22/2017 10:25 AM EDT) Pathologist [facility] Glucose 163 65 - 199 mg/dL [facility] Comment:Diabetes: >=200 mg/d L plus symptoms Blood Urea Nitrogen 14 8 - 18 mg/dL [facility] Creatinine 0.57(L) 0.70 - 1.20 mg/dL [facility] Sodium 141 135 - 145 mmol/L [facility] Potassium 4.3 3.5 - 5.0 mmol/L [facility] Comment: Please note: ??Patients with WBC >100,000 may have falsely elevated Potassium levels. ??For accurate Potassium quantification in these patients send serum separator tube (gold top) for subsequent determinations. ??Contact the Clinical Chemistry Laboratory if there are any questions. Chloride 99 98 - 107 mmol/L [facility] Carbon Dioxide 28 22 - 31 mmol/L [facility] Anion Gap 14 5 - 15 mmol/L [facility] Calcium 10.3 8.5 - 10.5 mg/dL [facility] Protein, Total 7.4 6.1 - 8.0 gm/dL [facility] Albumin 5.0 3.2 - 5.2 gm/dL [facility] Aspartate Aminotransferase 30 0 - 30 unit/L [facility] Alanine Aminotransferase 32(H) 0 - 30 unit/L [facility] Alkaline Phosphatase 72 40 - 104 unit/L [facility] Bilirubin, Total 0.5 0.2 - 1.3 mg/dL [facility] Est Glomerular Filtration Rate >60 >=60 [facility] Comment: The reported eGFR should be multiplied by 1.2 for patients. The MDRD is not an appropriate measure of renal function for patients with body mass extremes or in patients with acute kidney failure. http://[employer]/DHnkdep [email or web address]://[employer]/DHMCnkf Blood specimen (specimen) 08/22/2017 10:25 AM EDT 08/22/2017 10:43 AM EDT Narrative Resulting Agency Comment Spec In Lab Molly Cui APRN CHEMISTRY ORDERABL ES [facility] [place] [address] documented in this encounter Visit Diagnoses Diagnosis NAFLD (nonalcoholic fatty liver disease) Other chronic nonalcoholic liver disease documented in this encounter Care Teams First Aid Director Relationship Specialty Start Date End Date Salome Mcarthur APRN [address] [place] [address] PCP - General Family Medicine 05/30/15 12/11/23 documented as of this encounter
--- OUTSIDE RECORDS SUMMARY | 2024-04-16 15:42 | XMS_ITS | Encounter Summary ---
Author Organization [facility] [place] [address] Care Team Providers Care Hydrostatic Tubing Tester Name Role Phone Salome Mcarthur APRN Primary Care Provider +1 [phone] Encounter Details Date Type Department Care Team (Latest Contact Info) Description 09/10/2018 12:35 PM EDT Laboratory Appointment Lab [address] [place] [address] Hepatic cirrhosis, unspecified hepatic cirrhosis [...] 04/28/2024 11:00 AM EST [place] [address] Molly Cui [facility] [place] [address] 04/28/2024 2:00 PM EST Office [place] [address] Molly Cui [facility] [place] [address] documented as of this encounter [...] LABORATORY Neutrophil Absolute 4.28 1.70 - 6.10 x10(3)/[facility] LABORATORY Lymph % 36.5 % [facility] Lymphocytes Abs 2.9 0.9 - 3.2 x10(3)/[facility] LABORATORY Monocyte % 7.6 % [facility] Monocyte Abs 0.6 0.3 - 0.9 x10(3)/[facility] LABORATORY Eos % 2.0 % [facility] Eosinophils Abs 0.2 0.0 - 0.4 x10(3)/[facility] LABORATORY Basophil % 0.5 % [facility] Baso Absolute 0.0 0.0 - 0.1 x10(3)/[facility] LABORATORY Immature Gran % 0.40 % [facility] Comment: Immature granulocytes(IG's)percentage and absolute count will include metamyelocytes, myelocytes, and promyelocytes. Blood smears from CBCs yielding IG's will be scanned manually for concordance. If this scan disagrees with the automated IG or if promyelocytes are noted, a manual differential will be performed. Immature Gran Absolute 0.03 0.00 - 0.04 x10(3)/mcL [facility] Blood specimen (specimen) 09/10/2018 1:46 PM EDT 09/10/2018 2:00 PM EDT Narrative Resulting Agency Comment Spec In Lab Molly Cui LINEN SORTER HEMATOLOGY ORDERAB LES [facility] [place] [address] * (ABNORMAL) Hemogram (09/10/2018 1:46 PM EDT) White Blood Cell 8.1 4.0 - 9.5 x10(3)/mc L [facility] Red Blood Cell 4.63 4.00 - 5.21 x10(6)/[facility] LABORATORY Hemoglobin 14.6 11.7 - 15.5 gm/dL [facility] Hematocrit 43.3 35.7 - 45.8 % [facility] Mean Cell Volume 93.5 82.6 - 94.4 fL [facility] Mean Cell Hemoglobin 31.5 27.1 - 32.0 pg [facility] Mean Cell Hemoglobin Concentration 33.7 31.7 - 35.0 gm/dL [facility] Platelet 135(L) 145 - 357 x10(3)/mc L [facility] RDW Standard Deviation 44.0 37.0 - 46.0 [facility] LABORATORY RDW coefficient of variation 12.8 11.5 - 14.1 % [facility] Mean Platelet Volume 11.3 7.6 - 12.9 fL [facility] NRBC% auto 0.0 % [facility] NRBC Absolute 0.000 0.000 - 0.000 x10(3)/ L [facility] Blood specimen (specimen) 09/10/2018 1:46 PM EDT 09/10/2018 2:00 PM EDT Narrative Resulting Agency Comment Spec In Lab Mollyjuan a Cui [facility] HEMATOLOGY ORDERAB LES [facility] [place] [address] * (ABNORMAL) Comprehensive metabolic panel (non-fasting) (09/10/2018 1:46 PM EDT) Glucose 125 65 - 199 mg/dL [facility] Comment:Diabetes: >=200 mg/d L plus symptoms Blood Urea Nitrogen 18 8 - 18 mg/dL [facility] Creatinine 0.75 0.70 - 1.20 mg/dL [facility] Sodium 139 135 - 145 mmol/L [facility] Potassium 3.9 3.5 - 5.0 mmol/L [facility] Comment: Please note: ??Patients with WBC >100,000 may have falsely elevated Potassium levels. ??For accurate Potassium quantification in these patients send serum separator tube (gold top) for subsequent determinations. ??Contact the Clinical Chemistry Laboratory if there are any questions. Chloride 99 98 - 107 mmol/L [facility] Carbon Dioxide 26 22 - 31 mmol/L [facility] Anion Gap 14 5 - 15 mmol/L [facility] Calcium 10.5 8.5 - 10.5 mg/dL [facility] Protein, Total 7.9 6.1 - 8.0 gm/dL [facility] Albumin 4.7 3.2 - 5.2 gm/dL [facility] Aspartate Aminotransferase 39(H) 0 - 30 unit/L [facility] Alanine Aminotransferase 41(H) 0 - 30 unit/L [facility] Alkaline Phosphatase 69 40 - 104 unit/L [facility] Bilirubin, Total 0.7 0.2 - 1.3 mg/dL [facility] Est Glomerular Filtration Rate 77 >=60 mL/min/1. 73 m?? [facility] Comment: The eGFR was calculated using the CKD-EPI equation. As with all creatinine based estimates of kidney function, eGFR values calculated with the CKD-EPI equation are not accurate in patients with acute kidney failure, extremes of body mass or the acutely ill. [email or web address] [place] eGFR 89 >=60 mL/min/1. 73 m?? [facility] Comment: The eGFR was calculated using the CKD-EPI equation. As with all creatinine based estimates of kidney function, eGFR values calculated with the CKD-EPI equation are not accurate in patients with acute kidney failure, extremes of body mass or the acutely ill. [email or web address] [place] Blood specimen (specimen) 09/10/2018 1:46 PM EDT 09/10/2018 2:00 PM EDT Narrative Resulting Agency Comment Spec In Lab Molly Cui APRN CHEMISTRY ORDERABL ES Performing Organization Address [facility] de Phone Number [facility] [place] [address] * (ABNORMAL) Prothrombin Time (09/10/2018 1:46 PM EDT) Prothrombin Time 12.8(H) 9.4 - 12.5 sec [facility] [...] APRN HEMATOLOGY ORDERAB LES Performing Organization Address [facility]/ZIP Co [place] [address] documented in this encounter Visit Diagnoses Diagnosis Hepatic cirrhosis, unspecified hepatic cirrhosis type, unspecified whether ascites present documented in this encounter Care Teams Hydrostatic Tubing Tester Relationship Specialty Start Date End Date Salome Mcarthur APRN [address] [place] [address] PCP - General Family Medicine 05/30/15 12/11/23 documented as of this encounter
--- OUTSIDE RECORDS SUMMARY | 2024-04-16 15:42 | XMS_ITS | Encounter Summary ---
Author Organization [facility] [place] [address] Care Team Providers Care Mantel Craftsman Name Role Phone Salome Mcarthur APRN Primary Care Provider [phone] Encounter Details Date Type Department Care Team (Late st Contact Info) Description 08/06/2018 Ancillary Procedure Radiology Library at [facility] [place] [phone] Ella Castle MD [address] [place] [address] [id number] Pain Social History Tobacco Use Types Packs/Day [...] 04/28/2024 11:00 AM EST [place] [phone] Molly Cui SOLAR SYSTEM INSTALLER [facility] [place] [address] 04/28/2024 2:00 PM EST Office [place] [phone] Molly Cui APRN [facility] [place] [address] documented as of this encounter Procedures Procedure [...] this report, please contact the number below. Ella Castle MD IMG OUTSIDE INTER PRETATION ORDERABLES documented in this encounter Visit Diagnoses Diagnosis Pain Generalized pain documented in this encounter Care Teams Mantel Craftsman Relationship Specialty Start Date End Date Salome Mcarthur, SOLAR SYSTEM INSTALLER [address] [place] [address] PCP - General Family Medicine 05/30/15 12/11/23 documented as of this encounter
--- OUTSIDE RECORDS SUMMARY | 2024-04-16 15:42 | XMS_ITS | Encounter Summary ---
Author Organization [facility] [place] [address] Care Team Providers Care Felt Strip Finisher Name Role Phone Salome Mcarthur APRN Primary Care Provider [phone] Encounter Details Date Type Department Care Team (Late st Contact Info) Description 08/26/2017 Telephone [place] [address] [facility] [address] [place] [address] Social History Tobacco Use Types Packs/Day Years [...] do MRI to further evaluate. Will ask lens dotter to reach out to patient to schedule MRI. Patient understands, answered all questions. MOLLY WALLIS APRN documented in this encounter Plan of Treatment Upcoming Encounters Date Type Department Care Team (Late st Contact Info) Description 04/28/2024 11:00 AM EST Appointment [place] [address] Molly Wallis, ARMATURE TESTER [facility] [place] [address] 04/28/2024 2:00 PM EST Office Visit [place] [address] Molly Wallis, LORETO [facility] [place] [address] documented as of this encounter Visit Diagnoses Not on filedocumented in this encounter Care Teams Felt Strip Finisher Relationship Specialty Start Date End Date Salome Mcarthur APRN [address] [place] [address] PCP - General Family Medicine 05/30/15 12/11/23 documented as of this encounter
--- OUTSIDE RECORDS SUMMARY | 2024-04-16 15:42 | XMS_ITS | Encounter Summary ---
Author Organization [facility] [place] [address] Care Team Providers Care Endband Sizer Name Role Phone Salome Mcarthur APRN Primary Care Provider [phone] Reason for Visit * Auth/Cert Specialty Diagnoses / Procedures Referred By Jose t Referred To Contact Diagnoses cirrhosis,screening for varices (IVCS) prep: proclear Procedures PRO UPPER GI ENDOSCOPY, DIAGNOSTIC EGD, UPPER GI ENDOSCOPY Referral ID Status Reason Start Date Expiration Date Visits Re quested Visits Authorized [id number] 1 1 Encounter Details Date Type Department Care Team (Late st Contact Info) Description 09/17/2018 11:30 AM EDT - 09/17/2018 12:00 PM EDT [place] [phone] Juliette Chauhan MD [facility] [place] [place] [address] EGD, UPPER GI ENDOSCOPY (WRVU 2.09) Social [...] better as expected. Saturday-Saturday Same Day Endo [phone] 7a-8p Otherwise contact [phone] and ask to speak to the returns clerk transportation technician Follow-up care is a palomo part of your treatment and safety. Be sure to make and go to all appointments, and call your doctor if you are having problems. Instructions have been reviewed and patient expresses understanding Please call [phone] before 8pm Sat-Sat with problems, questions or concerns. If you call after 8pm or on weekends, call the Hospital at [phone] and ask to speak to the [employer] Professor transportation technician and the full decator operator will contact that person for you. [...] WHEN SHOULD YOU CALL FOR HELP? Call [phone] anytime you think that you need emergency [...] better as expected. Saturday-Saturday Same Day Endo [phone] 7a-8p Otherwise contact [phone] and ask to speak to the returns clerk transportation technician Follow-up care is a palomo part [...] protection 06/06/2009 fluticasone propionate (FLONASE) 50 mcg/actuation [place], Suspension 1 spray daily. pramipexole (MIRAPEX) 0.125 [...] Electronically signed by: Kehinde Martin Gastroenterology Fellow [facility] Pager [phone] 09/17/2018 documented in this encounter Plan of Treatment Upcoming Encounters Date Type Department Care Team (Late st Contact Info) Description 04/28/2024 11:00 AM [place] [address] Molly Cui, [facility] [place] [address] 04/28/2024 2:00 PM EST Office [place] [phone] Molly Cui, [facility] [place] [address] documented as of this encounter Procedures Procedure Name Priority Date/Time Associated Diagnosis Comments EGD, UPPER GI ENDOSCOPY (WRVU 2.09) 09/17/2018 10:04 AM EDT cirrhosis,screening for varices (IVCS) prep: proclear UPPER GI ENDOSCOPY Routine 09/17/2018 9: 58 AM EDT documented in this encounter Results * UPPER GI ENDOSCOPY (09/17/2018 9:58 AM EDT) UPPER GI ENDOSCOPY [facility] Endoscopy Procedure Date: 09/17/2018 9:58 AM ? Patient Name: Milka Corbett ? Date of : 1940 ? Age: 78 ? Order #: [id number] ? Instrument Name: [id number] ? Procedure: ? Upper GI endoscopy Indications: [...] the physician, the nurse ? and the cable television line technician. The procedure was ? verified in [...] Procedure Code(s): ?? --- Professional --- ? 61737, Esophagogastroduod enoscopy, ? flexible, transoral; diagnostic, ? including collection of specimen(s) ? by brushing or washing, when ? performed (separate procedure) CPT copyright 2017 [employer]. All rights reserved. The codes documented in this report are preliminary and upon b and b gang worker review may be revised to meet current compliance requirements. Attending Participation: ? I was present and participated during the entire ? procedure, including non-palomo portions. ? Juliette Zoey Tien, 09/17/2018 10:32:25 AM Number of Addenda: 0 Note Initiated On: 09/17/2018 9:58 AM PROVATION 09/17/2018 9:58 AM EDT Salome Mcarthur CHIEF WELLNESS OFFICER GENERAL SURGICAL OR DERABLES PROVATION documented in [...] RN) documented in this encounter Care Teams Endband Sizer Relationship Specialty Start Date End Date Salome Mcarthur APRN [address] [place] [address] PCP - General Family Medicine 05/30/15 12/11/23 documented as of this encounter
--- OUTSIDE RECORDS SUMMARY | 2024-04-16 15:42 | XMS_ITS | Encounter Summary ---
Author Organization [facility] [place] [address] Care Team Providers Care Architecture Consultant Name Role Phone Salome Mcarthur APRN Primary Care Provider [phone] Reason for Visit * Reason Comments Follow-up Encounter Details Date Type Department Care Team (Late st Contact Info) Description 09/10/2018 1:30 PM EDT Office Visit [place] [address] Molly Wallis APRN [facility] [place] [address] Hepatic cirrhosis, unspecified hepatic cirrhosis type, unspecified [...] Refill ??? fluticasone propionate (FLONASE) 50 mcg/actuation [place], Suspension 1 spray daily. ??? pramipexole (MIRAPEX) [...] mouth every 4 hours as needed. ??? [place]-3 Fatty Acids-Vitamin E (FISH OIL) 1,000 mg [...] Wallis APRN Section of Gastroenterology [place] [address] Copy: Salome Mcarthur APRN [address] / [place] [phone] 25 of this 30 minute visit in face to face discussion regarding disease, prognosis and treatment documented in this encounter Plan of Treatment Upcoming Encounters Date Type Department Care Team (Late st Contact Info) Description 04/28/2024 11:00 AM EST Appointment [place] [address] Molly Wallis APRN [facility] [place] [address] 04/28/2024 2:00 PM EST Office Visit [place] [address] Molly Wallis APRN [facility] [place] [address] documented as of this encounter Results * (ABNORMAL) Prothrombin Time (03/12/2019 11:39 AM EST) Prothrombin Time 13.5(H) 9.4 - 12.[address] [facility] International Normalization Ratio 1.2 [facility] Comment: An INR [...] Lab Molly Wallis APRN HEMATOLOGY ORDERAB LES [facility] [place] [address] * (ABNORMAL) Comprehensive metabolic panel (non-fasting) (03/12/2019 11:39 AM EST) Glucose 156 65 - 199 mg/dL [facility] Comment:Diabetes: >=200 mg/d L plus symptoms Blood Urea Nitrogen 19(H) 8 - 18 mg/dL [facility] Creatinine 0.64(L) 0.70 - 1.20 mg/dL [facility] Sodium 143 135 - 145 mmol/L [facility] Potassium 4.1 3.5 - 5.0 mmol/L [facility] Comment: Please note: ??Patients with WBC >100,000 may have falsely elevated Potassium levels. ??For accurate Potassium quantification in these patients send serum separator tube (gold top) for subsequent determinations. ??Contact the Clinical Chemistry Laboratory if there are any questions. Chloride 102 98 - 107 mmol/L [facility] Carbon Dioxide 26 22 - 31 mmol/L [facility] Anion Gap 15 5 - 15 mmol/L [facility] Calcium 10.1 8.5 - 10.5 mg/dL [facility] Protein, Total 7.9 6.1 - 8.0 gm/dL [facility] Albumin 4.4 3.2 - 5.2 gm/dL [facility] Aspartate Aminotransferase 29 0 - 30 unit/L [facility] Alanine Aminotransferase 27 0 - 30 unit/L [facility] Alkaline Phosphatase 91 35 - 105 unit/L [facility] Bilirubin, Total 0.6 0.2 - 1.3 mg/dL [facility] Est Glomerular Filtration Rate 86 >=60 mL/min/1. 73 m?? [facility] Comment: The eGFR was calculated using the CKD-EPI equation. As with all creatinine based estimates of kidney function, eGFR values calculated with the CKD-EPI equation are not accurate in patients with acute kidney failure, extremes of body mass or the acutely ill. [email or web address] eGFR 100 >=60 mL/min/1. 73 m?? [facility] Comment: The eGFR was calculated using the CKD-EPI equation. As with all creatinine based estimates of kidney function, eGFR values calculated with the CKD-EPI equation are not accurate in patients with acute kidney failure, extremes of body mass or the acutely ill. [email or web address] Blood specimen (specimen) 03/12/2019 11:39 AM EST 03/12/2019 11:53 AM EST Narrative Resulting Agency Comment Spec In Lab Molly Wallis APRN CHEMISTRY ORDERABL ES [facility] [address] * US Abdomen Limited Hepatology Protocol (03/12/2019 [...] below. Electronically signed by: Jean Claude Bautista [facility] ([phone]), at 03/12/2019 1:48 PM ? Jean Claude Bautista, Staff Physician Electronically Signed Final Report ?? 03/12/2019 01:55 pm Narrative 03/12/2019 1:55 PM EST Abdominal ? (Signed Final 03/12/2019 01:55 pm) PATIENT INFO: ID #: ? [id number] ?: ??[birth year] (78 yrs) Name: ? MILKA MENDIETA ?Visit Date: 03/12/2019 11:07 am PERFORMED BY: Performed By: ? Tigist Castellanos RDMS Attending: ?Lily GALLO, Jean Claude [place] Resident: ? Ruchi GALLO, Kal Montesinos Referred By: ?MOLLY WALLIS Secondary Phy.: ?? MOLLY WALLIS LIVING SKILLS ADVISOR Location: ? [place] SERVICE(S) PROVIDED: ??UABDLIM - Hepatology Protocol - Abdominal ? 14485 ??Limited Survey Single Organ or Quadrant - ??[id number] INDICATIONS: ??cirrhosis, survey for hcc ------ LIVER: [...] 03/12/2019 01:55 pm) PATIENT INFO: ID #: [id number] : 41 (78 yrs) Name: MILKA MENDIETA Visit Date: 03/12/2019 11:07 am PERFORMED BY: Performed By: Tigist Castellanos RDMS Attending: Jean Claude Bautista MD Resident: Kal Hopper MD Referred By: MOLLY WALLIS Secondary Phy.: MOLLY WALLIS APRN Location: [place] SERVICE(S) PROVIDED: UABDLIM - Hepatology Protocol - Abdominal 77771 Limited Survey Single Organ or Quadrant - [id number] INDICATIONS: cirrhosis, survey for hcc ------ LIVER: [...] below. Electronically signed by: Jean Claude Bautista, [facility] ([phone]), at 03/12/2019 1:48 PM Jean Claude Bautista, Staff Physician Electronically Signed Final Report 03/12/2019 01:55 pm Molly Wallis LIVING SKILLS ADVISOR IMG GEN ORDERAB LES documented in this encounter Visit Diagnoses Diagnosis Hepatic cirrhosis, unspecified hepatic cirrhosis type, unspecified whether ascites present Hepatic cirrhosis, unspecified hepatic cirrhosis type, unspecified whether ascites present documented in this encounter Care Teams Architecture Consultant Relationship Specialty Start Date End Date Salome Mcarthur APRN [address] [place] [address] PCP - General Family Medicine 05/30/15 12/11/23 documented as of this encounter
--- OUTSIDE RECORDS SUMMARY | 2024-04-16 15:42 | XMS_ITS | Encounter Summary ---
Author Organization [facility] [place] [address] Care Team Providers Care Equipment Hire Manager Name Role Phone Salome Mcarthur APRN Primary Care Provider [phone] Encounter Details Date Type Department Care Team (Latest Contact Info) Description 02/26/2018 9:30 AM EST Laboratory Appointment Lab [address] [place] [address] Hepatic cirrhosis, unspecified hepatic cirrhosis [...] 04/28/2024 11:00 AM EST Appointment [place] [address] Molly Cui [facility] [place] [address] 04/28/2024 2:00 PM EST Office Visit [place] [address] Molly Cui CORRECTIONS LIEUTENANT [facility] GASTROENTEROLOGY [place], [place] [id number] documented as of this encounter Procedures Procedure [...] 10:02 AM EST) Neutrophil % 57.5 % [facility] Neutrophil Absolute 3.52 1.70 - 6.10 x10(3)/[facility] Lymph % 31.0 % [facility] Lymphocytes Abs 1.9 0.9 - 3.2 x10(3)/[facility] Monocyte % 9.1 % [facility] Monocyte Abs 0.6 0.3 - 0.9 x10(3)/[facility] Eos % 1.6 % [facility] Eosinophils Abs 0.1 0.0 - 0.4 x10(3)/[facility] Basophil % 0.5 % [facility] Baso Absolute 0.0 0.0 - 0.1 x10(3)/[facility] Immature Gran % 0.30 % [facility] Comment: Immature granulocytes(IG's)percentage and absolute count will include metamyelocytes, myelocytes, and promyelocytes. Blood smears from CBCs yielding IG's will be scanned manually for concordance. If this scan disagrees with the automated IG or if promyelocytes are noted, a manual differential will be performed. Immature Gran Absolute 0.02 0.00 - 0.04 x10(3)/mcL [facility] Blood specimen (specimen) 02/26/2018 10:02 AM EST 02/26/2018 10:15 AM EST Narrative Resulting Agency Comment Spec In Lab Molly Cui APRN HEMATOLOGY ORDERAB LES [facility] [place] [address] * (ABNORMAL) Hemogram (02/26/2018 10:02 AM EST) White Blood Cell 6.1 4.0 - 9.5 x10(3)/mc L [facility] Red Blood Cell 4.49 4.00 - 5.21 x10(6)/mc L [facility] Hemoglobin 14.1 11.7 - 15.5 gm/dL [facility] Hematocrit 41.4 35.7 - 45.8 % [facility] Mean Cell Volume 92.2 82.6 - 94.[address] [facility] Mean Cell Hemoglobin 31.4 27.1 - 32.[address] [facility] Mean Cell Hemoglobin Concentration 34.1 31.7 - 35.0 gm/dL [facility] Platelet 111(L) 145 - 357 x10(3)/mc L [facility] RDW Standard Deviation 42.4 37.0 - 46.[address] [facility] RDW coefficient of variation 12.5 11.5 - 14.1 % [facility] Mean Platelet Volume 11.8 7.6 - 12.[address] [facility] NRBC% auto 0.0 % [facility] NRBC Absolute 0.000 0.000 - 0.000 x10(3)/mc L [facility] Blood specimen (specimen) 02/26/2018 10:02 AM EST 02/26/2018 10:15 AM EST Narrative Resulting Agency Comment Spec In Lab Molly Cui CORRECTIONS LIEUTENANT HEMATOLOGY ORDERAB LES [facility] [place] [address] * (ABNORMAL) Comprehensive metabolic panel (non-fasting) (02/26/2018 10:02 AM EST) Glucose 137 65 - 199 mg/dL [facility] Comment:Diabetes: >=200 mg/d L plus symptoms Blood Urea Nitrogen 20(H) 8 - 18 mg/dL [facility] Creatinine 0.64(L) 0.70 - 1.20 mg/dL [facility] Sodium 141 135 - 145 mmol/L [facility] Potassium 4.3 3.5 - 5.0 mmol/L [facility] Comment: Please note: ??Patients with WBC >100,000 may have falsely elevated Potassium levels. ??For accurate Potassium quantification in these patients send serum separator tube (gold top) for subsequent determinations. ??Contact the Clinical Chemistry Laboratory if there are any questions. Chloride 101 98 - 107 mmol/L [facility] Carbon Dioxide 24 22 - 31 mmol/L [facility] Anion Gap 16(H) 5 - 15 mmol/L [facility] Calcium 10.0 8.5 - 10.5 mg/dL [facility] Protein, Total 7.7 6.1 - 8.0 gm/dL [facility] Albumin 4.5 3.2 - 5.2 gm/dL [facility] Aspartate Aminotransferase 24 0 - 30 unit/L [facility] Alanine Aminotransferase 28 0 - 30 unit/L [facility] Alkaline Phosphatase 81 40 - 104 unit/L [facility] Bilirubin, Total 0.4 0.2 - 1.3 mg/dL [facility] Est Glomerular Filtration Rate 87 >=60 mL/min/1. 73 m?? [facility] Comment: The eGFR was calculated using the CKD-EPI equation. As with all creatinine based estimates of kidney function, eGFR values calculated with the CKD-EPI equation are not accurate in patients with acute kidney failure, extremes of body mass or the acutely ill. http://[employer]/[facility] eGFR 100 >=60 mL/min/1. 73 m?? [facility] Comment: The eGFR was calculated using the CKD-EPI equation. As with all creatinine based estimates of kidney function, eGFR values calculated with the CKD-EPI equation are not accurate in patients with acute kidney failure, extremes of body mass or the acutely ill. http://[employer]/[facility] Blood specimen (specimen) 02/26/2018 10:02 AM EST 02/26/2018 10:15 AM EST Narrative Resulting Agency Comment Spec In Lab Molly Cui APRN CHEMISTRY ORDERABL ES [facility] [place] [address] * Prothrombin Time (02/26/2018 10:02 AM EST) Prothrombin Time 11.9 9.4 - 12.[address] [facility] [...] APRN HEMATOLOGY ORDERAB LES Performing Organization Address City/[facility]/ZIP Co de Phone Number [facility] [place] [address] * AFP tumor marker (02/26/2018 10:02 AM EST) Alpha Fetoprotein 4.3 <=8.3 ng/mL [facility] Blood specimen (specimen) 02/26/2018 10:02 AM EST 02/26/2018 10:15 AM EST Narrative Resulting Agency Comment Spec In Lab Molly Sharron Basilia DANGELO CHEMISTRY ORDERABL ES Performing Organization Address [facility] Co de Phone Number [facility] [place] [address] documented in this encounter Visit Diagnoses Diagnosis Hepatic cirrhosis, unspecified hepatic cirrhosis type, unspecified whether ascites present NAFLD (nonalcoholic fatty liver disease) Other chronic nonalcoholic liver disease documented in this encounter Care Teams Equipment Hire Manager Relationship Specialty Start Date End Date Salome Mcarthur APRN [address] [place] [address] PCP - General Family Medicine 05/30/15 12/11/23 documented as of this encounter
--- OUTSIDE RECORDS SUMMARY | 2024-04-16 15:42 | XMS_ITS | Encounter Summary ---
Author Organization [facility] [place] [address] Care Team Providers Care Supervisor Press Room Name Role Phone Salome Mcarthur APRN Primary Care Provider [phone] Encounter Details Date Type Department Care Team (Late st Contact Info) Description 09/10/2018 Telephone Gastroenterology at [facility] [place] [address] Laura Pike Social History Tobacco Use Types [...] meds?:no Current medical conditions? no BMI:27.21 Prep:proclear Mixing Operator?:yes Instructions to patient?:instructions to patient at 4L/Exit 09/10/2018~[facility] documented in this encounter Plan of Treatment Upcoming Encounters Date Type Department Care Team (Late st Contact Info) Description 04/28/2024 11:00 AM [place] [address] Molly Cui, [facility] [place] [address] 04/28/2024 2:00 PM EST Office [place] [address] Molly Cui, [facility] [place] [address] documented as of this encounter Visit Diagnoses Not on filedocumented in this encounter Care Teams Supervisor Press Room Relationship Specialty Start Date End Date Salome Mcarthur APRN [address] [place] [address] PCP - General Family Medicine 05/30/15 12/11/23 documented as of this encounter
--- OUTSIDE RECORDS SUMMARY | 2024-04-16 15:42 | XMS_ITS | Encounter Summary ---
Author Organization [facility] [place] [address] Care Team Providers Care Heating Unit Mechanic Name Role Phone Salome Mcarthur APRN Primary Care Provider [phone] Reason for Referral * Diagnostic Test (Routine) - Closed Specialty Diagnoses / Procedures Referred By Contac t Referred To Contact Radiology Diagnoses Hepatic cirrhosis, unspecified hepatic cirrhosis type, unspecified whether ascites present Procedures MRI Abdomen wwo Contrast (Generic) Molly Cui APRN [facility] [place] [place] [address] [place] [address] Referral ID Status Reason Start Date Expiration Date V isits Requested Visits Authorized [id number] Closed Specialty Service Requested 02/26/2018 02/26/2019 1 1 Encounter Details Date Type Department Care Team (Late st Contact Info) Description 02/26/2018 11:00 AM EST Office [place] [address] [facility] [address] Hepatic cirrhosis, unspecified hepatic cirrhosis [...] mouth as needed. Reported on 08/21/2016 ??? [place]-3 Fatty Acids-Vitamin E (FISH OIL) 1,000 mg [...] Cui APRN Section of Gastroenterology [place] [address] Copy: Salome Mcarthur APRN [address] / [place] [id number] 25 of this 30 minute visit in face to face discussion regarding disease, prognosis and treatment documented in this encounter Plan of Treatment Upcoming Encounters Date Type Department Care Team (Late st Contact Info) Description 04/28/2024 11:00 AM EST [place] [address] Molly Cui, [facility] [place] [address] 04/28/2024 2:00 PM EST Office Visit Gastroenterology at [facility] [place] [phone] Molly Cui, [employer]ER[employer]IONS EXECUTIVE [facility] [place] [address] documented as of this encounter Results * [...] demonstrate a somewhat reticular pattern of high Q0arumyv intensity most pronounced in the inferior right [...] made given differences in technique. Recommend reference [facility] CT report for management guidelines. [...] present documented in this encounter Care Teams Heating Unit Mechanic Relationship Specialty Start Date End Date Salome Mcarthur APRN [address] [place] [address] PCP - General Family Medicine 05/30/15 12/11/23 documented as of this encounter
--- OUTSIDE RECORDS SUMMARY | 2024-04-16 15:42 | XMS_ITS | Encounter Summary ---
Author Organization [facility] [place] [address] Care Team Providers Care Tile And Marble Installer Name Role Phone Salome Mcarthur APRN Primary Care Provider [phone] Encounter Details Date Type Department Care Team (Late st Contact Info) Description 07/14/2018 Telephone [place] [phone] Crista Kyle Social History Tobacco Use Types [...] 04/28/2024 11:00 AM EST Appointment [place] [phone] Molly Cui APRN [facility] [place] [address] 04/28/2024 2:00 PM EST Office Visit [place] [address] Molly Cui APRN [facility] [place] [address] documented as of this encounter Visit Diagnoses Not on filedocumented in this encounter Care Teams Tile And Marble Installer Relationship Specialty Start Date End Date Salome Mcarthur APRN [address] [place] [address] PCP - General Family Medicine 05/30/15 12/11/23 documented as of this encounter
--- OUTSIDE RECORDS SUMMARY | 2024-04-16 15:42 | XMS_ITS | Encounter Summary ---
[place] [address] Care Team Providers Care Business Systems Technician Name Role Phone Salome Mcarthur APRN Primary Care Provider [phone] Encounter Details Date Type Department Care Team (Late st Contact Info) Description 07/15/2018 Orders Only Gastroenterology at [place] [phone] Crista Kyle Social History Tobacco Use Types [...] 04/28/2024 11:00 AM EST Appointment Ultrasound at [place] [phone] Molly Cui [facility] [place] [address] 04/28/2024 2:00 PM EST Office [place] [address] Molly Cui [facility] [place] [address] documented as of this encounter Visit Diagnoses Not on filedocumented in this encounter Care Teams Business Systems Technician Relationship Specialty Start Date End Date Salome Mcarthur, LORETO [address] [place] [address] PCP - General Family Medicine 05/30/15 12/11/23 documented as of this encounter
--- OUTSIDE RECORDS SUMMARY | 2024-04-16 15:42 | XMS_ITS | Encounter Summary ---
Author Organization [facility] [place] [address] Care Team Providers Care Computer Graphic Designer Name Role Phone Salome Mcarthur APRN Primary Care Provider [phone] Reason for Referral * Diagnostic Test (Routine) - Closed Specialty Diagnoses / Procedures Referred By Contruth t Referred To Contact Radiology Diagnoses Hepatic cirrhosis, unspecified hepatic cirrhosis type, unspecified whether ascites present Procedures MRI Abdomen wwo Contrast (Generic) Molly Cui APRN [facility] [place] [address] [place] [address] Referral ID Status Reason Start Date Expiration Date V isits Requested Visits Authorized [id number] Closed Specialty Service Requested 07/14/2018 07/14/2019 1 1 Encounter Details Date Type Department Care Team (Late st Contact Info) Description 07/14/2018 Orders [place] [address] Molly Cui APRN [facility] [place] [address] Hepatic cirrhosis, unspecified hepatic cirrhosis [...] 04/28/2024 11:00 AM [place] [address] Molly Cui, [facility] [address] 04/28/2024 2:00 PM EST Office [place] [address] Molly Cui, [facility] [place] [address] documented as of this encounter Results * (ABNORMAL) Prothrombin Time (09/10/2018 1:46 PM EDT) Pathologist [facility] Prothrombin Time 12.8(H) 9.4 - 12.5 sec [facility] International Normalization Ratio 1.1 [facility] Comment: An [...] Lab Molly Cui APRN HEMATOLOGY ORDERAB LES [facility] [place] [address] * (ABNORMAL) Comprehensive metabolic panel (non-fasting) (09/10/2018 1:46 PM EDT) Pathologist [facility] Glucose 125 65 - 199 mg/dL [facility] Comment:Diabetes: >=200 mg/d L plus symptoms Blood Urea Nitrogen 18 8 - 18 mg/dL [facility] Creatinine 0.75 0.70 - 1.20 mg/dL [facility] Sodium 139 135 - 145 mmol/L [facility] Potassium 3.9 3.5 - 5.0 mmol/L [facility] Comment: Please note: ??Patients with WBC >100,000 may have falsely elevated Potassium levels. ??For accurate Potassium quantification in these patients send serum separator tube ([facility] top) for subsequent determinations. ??Contact the Clinical Chemistry Laboratory if there are any questions. Chloride 99 98 - 107 mmol/L [facility] Carbon Dioxide 26 22 - 31 mmol/L [facility] Anion Gap 14 5 - 15 mmol/L [facility] Calcium 10.5 8.5 - 10.5 mg/dL [facility] Protein, Total 7.9 6.1 - 8.0 gm/dL [facility] Albumin 4.7 3.2 - 5.2 gm/dL [facility] Aspartate Aminotransferase 39(H) 0 - 30 unit/L [facility] Alanine Aminotransferase 41(H) 0 - 30 unit/L [facility] Alkaline Phosphatase 69 40 - 104 unit/L [facility] Bilirubin, Total 0.7 0.2 - 1.3 mg/dL [facility] Est Glomerular Filtration Rate 77 >=60 mL/min/1. 73 m?? [facility] Comment: The eGFR was calculated using the CKD-EPI equation. As with all creatinine based estimates of kidney function, eGFR values calculated with the CKD-EPI equation are not accurate in patients with acute kidney failure, extremes of body mass or the acutely ill. http://[employer]/[facility] eGFR 89 >=60 mL/min/1. 73 m?? [facility] Comment: The eGFR was calculated using the CKD-EPI equation. As with all creatinine based estimates of kidney function, eGFR values calculated with the CKD-EPI equation are not accurate in patients with acute kidney failure, extremes of body mass or the acutely ill. http://[employer]/[facility] Blood specimen (specimen) 09/10/2018 1:46 PM EDT 09/10/2018 2:00 PM EDT Narrative Resulting Agency Comment Spec In Lab Molly A Basilia PROCESS SAFETY MANAGER CHEMISTRY ORDERABL ES [facility] [place] [place] [address] * MRI Abdomen wwo Contrast (Generic) (09/10/2018 [...] present documented in this encounter Care Teams Computer Graphic Designer Relationship Specialty Start Date End Date Salome Mcarthur APRN [address] [place] [address] PCP - General Family Medicine 05/30/15 12/11/23 documented as of this encounter
--- OUTSIDE RECORDS SUMMARY | 2024-04-16 15:42 | XMS_ITS | Encounter Summary ---
Author Organization [facility] [place] [address] Care Team Providers Care Fund Raiser Name Role Phone Salome Mcarthur APRN Primary Care Provider [phone] Reason for Visit * Reason Onset Date Comments Results 03/13/2018 Encounter Details Date Type Department Care Team (Late st Contact Info) Description 03/13/2018 Tele[place] [phone] Jacque Gale, RN Results Social History Tobacco [...] 04/28/2024 11:00 AM [place] [address] Molly Cui, [facility] [place] [address] 04/28/2024 2:00 PM EST Office [place] [address] Molly Cui, [facility] [place] [address] documented as of this encounter Visit Diagnoses Not on filedocumented in this encounter Care Teams Fund Raiser Relationship Specialty Start Date End Date Salome Mcarthur APRN [address] [place] [address] PCP - General Family Medicine 05/30/15 12/11/23 documented as of this encounter
--- OUTSIDE RECORDS SUMMARY | 2024-04-16 15:42 | XMS_ITS | Encounter Summary ---
Author Organization [facility] Address [facility] [place] [address] Care Team Providers Care Director Financial Planning Name Role Phone Salome Mcarthur APRN Primary Care Provider [phone] [phone] Encounter Details Date Type Department Care Team (Late st Contact Info) Description 09/23/2017 Orders Only [place] [address] Molly Wallis APRN [facility] [place] [address] Lung nodule Social History Tobacco Use Types [...] 1-2 months, per patient preference Will ask museum service scheduler to contact. MOLLY WALLIS APRN documented in this encounter Plan of Treatment Upcoming Encounters Date Type Department Care Team (Late st Contact Info) Description 04/28/2024 11:00 AM EST Appointment [place] [address] Molly Wallis, [facility] [place] [address] 04/28/2024 2:00 PM EST Office Visit [place] [address] Molly Wallis, [facility] [place] [address] documented as of this encounter Visit Diagnoses Diagnosis Lung nodule Solitary pulmonary nodule documented in this encounter Care Teams Director Financial Planning Relationship Specialty Start Date End Date Salome Mcarthur, RADIOGRAPHER [facility] [address] [place] [address] PCP - General Family Medicine 05/30/15 12/11/23 documented as of this encounter
--- OUTSIDE RECORDS SUMMARY | 2024-04-16 15:42 | XMS_ITS | Encounter Summary ---
[place] [address] Care Team Providers Care Rn Pediatric Icu Name Role Phone Salome Mcarthur APRN Primary Care Provider [phone] Reason for Visit * Reason Onset Date Comments Results 10/22/2017 Encounter Details Date Type Department Care Team (Late st Contact Info) Description 10/22/2017 Tele[place] [address] Jacque Gale, RN Results Social History Tobacco [...] results of recent CT- Her contact # [phone]- okay to leave . * Telephone Encounter - Jacque Gale RN - 10/22/2017 3:58 PM EDT Pt calling for results of chest CT performed on 10/18 at [facility]. documented in this encounter Plan of Treatment Upcoming Encounters Date Type Department Care Team (Late st Contact Info) Description 04/28/2024 11:00 AM [place] [address] Molly Cui, [facility] [place] [address] 04/28/2024 2:00 PM EST Office [place] [address] Molly Cui, [facility] [place] [address] documented as of this encounter Visit Diagnoses Not on filedocumented in this encounter Care Teams Rn Pediatric Icu Relationship Specialty Start Date End Date Salome Mcarthur APRN [address] [place] [address] PCP - General Family Medicine 05/30/15 12/11/23 documented as of this encounter
--- OUTSIDE RECORDS SUMMARY | 2024-04-16 15:42 | XMS_ITS | Encounter Summary ---
Author Organization [facility] Address [facility] [place] [address] Care Team Providers Care First Assist Name Role Phone Salome Mcarthur APRN Primary Care Provider Encounter Details Date Type Department Care Team (Latest Contact Info) Description 03/12/2019 10:01 AM EST - 03/12/2019 11:59 PM [facility] Hospital [place] [phone] Molly Wallis [facility] [address] Hepatic cirrhosis, unspecified hepatic cirrhosis type, unspecified [...] protection 06/06/2009 fluticasone propionate (FLONASE) 50 mcg/actuation [place], Suspension 1 spray daily. pramipexole (MIRAPEX) 0.125 [...] 04/28/2024 11:00 AM EST [place] [address] Molly Wallis, [facility] [place] [address] 04/28/2024 2:00 PM EST Office [place] [address] Molly Wallis, [facility] [place] [address] documented as of this encounter Procedures Procedure [...] 01:55 pm) PATIENT INFO: ID #: ? [id number] ?: ??[birth year] (78 yrs) Name: ? MILKA KIDDIER ?Visit Date: 03/12/2019 11:07 am PERFORMED BY: Performed By: ? Tigist Castellanos RDMS Attending: ?Lily GALLO, Jean Claude Lancaster Resident: ? Ruchi GALLO, Kal Montesinos Referred By: ?MOLLY WALLIS Secondary Phy.: ?? MOLLY WALLIS SCALER Location: ? [place] SERVICE(S) PROVIDED: ??UABDLIM - Hepatology Protocol - Abdominal ? 78817 ??Limited Survey Single Organ or Quadrant - ??[id number] INDICATIONS: ??cirrhosis, survey for hcc ------ LIVER: [...] 03/12/2019 01:55 pm) PATIENT INFO: ID #: [id number] : 42 (78 yrs) Name: MILKA MENDIETA Visit Date: 03/12/2019 11:07 am PERFORMED BY: Performed By: Tigist Castellanos RDMS Attending: Jean Claude Bautista MD Resident: Kal Hopper MD Referred By: MOLLY WALLIS [facility] Phy.: MOLLY WALLIS APRN Location: [place] SERVICE(S) PROVIDED: UABDLIM - Hepatology Protocol - Abdominal 20206 Limited Survey Single Organ or Quadrant - [id number] INDICATIONS: cirrhosis, survey for hcc ------ LIVER: [...] present documented in this encounter Care Teams First Assist Relationship Specialty Start Date End Date Salome Mcarthur APRN [address] [place] [address] PCP - General Family Medicine 05/30/15 12/11/23 documented as of this encounter
--- OUTSIDE RECORDS SUMMARY | 2024-04-16 15:42 | XMS_ITS | Encounter Summary ---
[place] [address] Care Team Providers Care Drafting Instructor Name Role Phone Salome Mcarthur APRN Primary Care Provider [phone] Reason for Referral * Diagnostic Test (Routine) - Closed Specialty Diagnoses / Procedures Referred By Contac t Referred To Contact Radiology Diagnoses NAFLD (nonalcoholic fatty liver disease) Procedures MRI Abdomen wwo Contrast (Generic) Molly Cui EMERGENCY MEDICAL SERVICE MANAGER [facility] [address] [place] [address] Referral ID Status Reason Start Date Expiration Date V isits Requested Visits Authorized [id number] Closed Specialty Service Requested 08/22/2017 08/22/2018 1 1 Reason for Visit * Diagnostic Test (Routine) - Closed Specialty Diagnoses / Procedures Referred By Contac t Referred To Contact Radiology Diagnoses NAFLD (nonalcoholic fatty liver disease) Procedures MRI Abdomen wwo Contrast (Generic) Molly Cui EMERGENCY MEDICAL SERVICE MANAGER [facility] [place] [address] [place] [address] Referral ID Status Reason Start Date Expiration Date V isits Requested Visits Authorized [id number] Closed Specialty Service Requested 08/22/2017 08/22/2018 1 1 Encounter Details Date Type Department Care Team (Latest Contact Info) Description 09/20/2017 2:41 PM EDT - 09/20/2017 11:59 PM EDT Hospital Encounter MRI at [facility] [place] [address] Molly Cui APRN [facility] [address] NAFLD (nonalcoholic fatty liver disease) Discharge Disposition: [...] by mouth. 02/24/2009 fluticasone (FLONASE) 50 mcg/actuation [place], Suspension 1 spray by Each Nare route [...] 04/28/2024 11:00 AM EST [place] [address] Molly Cui, [facility] [place] [address] 04/28/2024 2:00 PM EST Office [place] [address] Molly Cui, [facility] [place] [address] documented as of this encounter Procedures Procedure [...] Resulting Agency Comment Unexpected Finding Molly Cui EMERGENCY MEDICAL SERVICE MANAGER IMG MRI ORDERABLES documented in this encounter [...] mLs documented in this encounter Care Teams Drafting Instructor Relationship Specialty Start Date End Date Salome Mcarthur, EMERGENCY MEDICAL SERVICE MANAGER [address] [place] [address] PCP - General Family Medicine 05/30/15 12/11/23 documented as of this encounter
--- OUTSIDE RECORDS SUMMARY | 2024-04-16 15:42 | XMS_ITS | Encounter Summary ---
Author Organization [facility] [place] [address] Care Team Providers Care American Sign Language Interpreter Name Role Phone Salome Mcarthur APRN Primary Care Provider [phone] Encounter Details Date Type Department Care Team (Late st Contact Info) Description 10/07/2017 Telephone [place] [address] Evy Howard Social History Tobacco [...] local hospital. I have faxed order to [facility] and have asked them to call her to schedule. documented in this encounter Plan of Treatment Upcoming Encounters Date Type Department Care Team (Late st Contact Info) Description 04/28/2024 11:00 AM EST [place] [phone] Molly Cui APRN [facility] [place] [address] 04/28/2024 2:00 PM EST Office [place] [address] Molly Cui APRN [facility] [place] [address] documented as of this encounter Visit Diagnoses Not on filedocumented in this encounter Care Teams American Sign Language Interpreter Relationship Specialty Start Date End Date Salome Mcarthur APRN [address] [place] [address] PCP - General Family Medicine 05/30/15 12/11/23 documented as of this encounter
--- OUTSIDE RECORDS SUMMARY | 2024-04-16 15:42 | XMS_ITS | Encounter Summary ---
Author Organization [facility] Address [facility] [place] [address] Care Team Providers Care Clay Dry Press Helper Name Role Phone Salome Mcarthur APRN Primary Care Provider Encounter Details Date Type Department Care Team (Latest Contact Info) Description 08/22/2017 9:14 AM EDT - 08/22/2017 11:59 PM EDT Hospital En[place] [phone] Molly Wallis HEALTH AND NUTRITION SPECIALIST [facility] [place] [address] NAFLD (nonalcoholic fatty liver disease) Discharge Disposition: [...] by mouth. 02/24/2009 fluticasone (FLONASE) 50 mcg/actuation [place], Suspension 1 spray by Each Nare route [...] 04/28/2024 11:00 AM EST Appointment [place] [address] Molly Wallis APRN [facility] [place] [address] 04/28/2024 2:00 PM EST Office [place] [address] Molly Wallis APRN [facility] [place] [address] documented as of this encounter Procedures Procedure [...] 12:24 pm) PATIENT INFO: ID #: ? [id number] ?: ??42 (77 yrs) Name: ? MILKA MENDIETA ?Visit Date: 08/22/2017 09:52 am PERFORMED BY: Performed By: ? Mary HI, ??Lis Attending: ?Jaja GALLO, Sumi Kang Resident: ? Aryan GALLO, Estephanie Nolen Referred By: ?MOLLY WALLIS Secondary Phy.: ?? MOLLY WALLIS HEALTH AND NUTRITION SPECIALIST Location: ? [place] SERVICE(S) PROVIDED: ??BD - Abdominal Complete Survey - [id number] ?[id number] INDICATIONS: ??Cirrhosis, survey for hepatoma COMPARISON: RUQ [...] disease documented in this encounter Care Teams Clay Dry Press Helper Relationship Specialty Start Date End Date Salome Mcarthur APRN [address] [place] [address] PCP - General Family Medicine 05/30/15 12/11/23 documented as of this encounter
--- OUTSIDE RECORDS SUMMARY | 2024-04-16 15:42 | XMS_ITS | Encounter Summary ---
[place] [address] Care Team Providers Care Optical Advisor Name Role Phone Salome Mcarthur APRN Primary Care Provider +1 [phone] Encounter Details Date Type Department Care Team (Late st Contact Info) Description 10/07/2017 Orders [place] [address] Evy Howard Social History Tobacco Use Types [...] 04/28/2024 11:00 AM EST Appoint[place] [phone] Molly Cui [facility] [place] [address] 04/28/2024 2:00 PM EST Office [place] [address] Molly Cui [facility] [place] [address] documented as of this encounter Visit Diagnoses Not on filedocumented in this encounter Care Teams Optical Advisor Relationship Specialty Start Date End Date Salome Mcarthur, LORETO [address] [place] [address] PCP - General Family Medicine 05/30/15 12/11/23 documented as of this encounter
--- OUTSIDE RECORDS SUMMARY | 2024-04-16 15:43 | XMS_ITS | Encounter Summary ---
Author Organization [facility] Address [facility] [place] [address] Care Team Providers Care Cigar Tobacco Processing Supervisor Name Role Phone Lizbet Zhang APRN Primary Care Provider + Encounter Details Date Type Department Care Team (Late st Contact Info) Description 07/22/2012 11:00 AM EDT Office Visit Urology at [facility] [place] [address] Urge incontinence (Primary Dx); Mixed incontinence Social [...] 04/28/2024 11:00 AM EST Appoint[place] [address] Molly Cui APRN [facility] [place] [address] 04/28/2024 2:00 PM EST Office [place] [address] Molly Cui APRN [facility] [place] [place] [address] documented as of this encounter Visit Diagnoses Diagnosis Urge incontinence- Primary Mixed incontinence Mixed incontinence urge and stress (male)(female) documented in this encounter Care Teams Cigar Tobacco Processing Supervisor Relationship Specialty Start Date End Date Lizbet Zhang APRN PCP - General 06/30/12 05/29/15 documented as of this encounter
--- OUTSIDE RECORDS SUMMARY | 2024-04-16 15:43 | XMS_ITS | Encounter Summary ---
Author Organization [facility] Address [facility] [place] [address] Care Team Providers Care Peripheral Edp Equipment Operator Name Role Phone Salome Mcarthur APRN Primary Care Provider Encounter Details Date Type Department Care Team (Latest Contact Info) Description 02/15/2016 9:51 AM EST - 02/15/2016 11:59 PM [facility] Hospital [place] [phone] Tremaine Nesbitt MD [facility] [place] [address] NAFLD (nonalcoholic fatty liver disease); Cirrhosis of [...] 04/28/2024 11:00 AM EST [place] [address] Molly Wallis, [facility] [place] [address] 04/28/2024 2:00 PM EST Office [place] [address] Molly Wallis, [facility] [place] [address] documented as of this encounter Procedures Procedure [...] 01:34 pm) PATIENT INFO: ID #: ? [id number] ? : 42 (75 yrs) Name: ? MILKA MENDIETA ? Visit Date:02/15/2016 10:44 am PERFORMED BY: Performed By: ? Colton Coppola RDMS Attending: ?Jaja GALLO, Sumi Arriaza. Referred By: ?TREMAINE NESBITT MD Secondary Phy.: ?? MOLLY WALLIS APRN Location: ? [place] SERVICE(S) PROVIDED: ??UABDCVASC - Abdominal Complete Survey with Vascular - 89100, 11834 ??[id number] INDICATIONS: ??Cirrhosis: survey for Hepatocellular carcinoma, ??evaluate [...] Final 02/15/2016 01:34pm) PATIENT INFO: ID #: [id number] : 42 (75 yrs) Name: MILKA MENDIETA Visit Date:02/15/2016 10:44 am PERFORMED BY: Performed By: Colton Coppola RDMS Attending: Sumi Wilkinson MD Referred By: TREMAINE NESBITT MD Secondary Phy.: MOLLY WALLIS APRN Location: [place] SERVICE(S) PROVIDED: UABDCVASC - Abdominal Complete Survey with Vascular - 58695, 97926 [id number] INDICATIONS: Cirrhosis: survey for Hepatocellular carcinoma, evaluate [...] Report 02/15/2016 01:34 pm Tremaine Nesbitt MD [facility] GEN ORDERABL ES documented in this encounter Visit Diagnoses Diagnosis NAFLD (nonalcoholic fatty liver disease) Other chronic nonalcoholic liver disease Cirrhosis of liver without ascites, unspecified hepatic cirrhosis type documented in this encounter Care Teams Peripheral Edp Equipment Operator Relationship Specialty Start Date End Date Salome Mcarthur, FRUIT OR NUT FARMWORKER [address] [place] [address] PCP - General Family Medicine 05/30/15 12/11/23 documented as of this encounter
--- OUTSIDE RECORDS SUMMARY | 2024-04-16 15:43 | XMS_ITS | Encounter Summary ---
Author Organization [facility] [place] [address] Care Team Providers Care Paper Box Cutter Name Role Phone Salome Mcarthur APRN Primary Care Provider [phone] Encounter Details Date Type Department Care Team (Late st Contact Info) Description 05/31/2016 External Results [place] [address] Molly Cui [facility] [place] [address] Social History Tobacco Use Types Packs/Day Years [...] 04/28/2024 11:00 AM EST [place] [address] Molly Cui GAMBLING FLOOR SUPERVISOR [facility] [place] [address] 04/28/2024 2:00 PM EST Office [place] [phone] Molly Cui [facility] [place] [address] documented as of this encounter Procedures Procedure [...] on filedocumented in this encounter Care Teams Paper Box Cutter Relationship Specialty Start Date End Date Salome Mcarthur, GAMBLING FLOOR SUPERVISOR [address] [place] [address] PCP - General Family Medicine 05/30/15 12/11/23 documented as of this encounter
--- OUTSIDE RECORDS SUMMARY | 2024-04-16 15:43 | XMS_ITS | Encounter Summary ---
Author Organization [facility] [place] [address] Care Team Providers Care Spark Plug Tester Name Role Phone Salome Mcarthur APRN Primary Care Provider [phone] Encounter Details Date Type Department Care Team (Late st Contact Info) Description 03/05/2016 Telephone [place] [address] Whitney De Souza Social History Tobacco Use [...] yes Patient's preferred method of communication: phone; [phone] documented in this encounter Plan of Treatment Upcoming Encounters Date Type Department Care Team (Late st Contact Info) Description 04/28/2024 11:00 AM [place] [address] Molly Cui, [facility] [place] [address] 04/28/2024 2:00 PM EST Office [place] [address] Molly Cui, [facility] [place] [address] documented as of this encounter Visit Diagnoses Not on filedocumented in this encounter Care Teams Spark Plug Tester Relationship Specialty Start Date End Date Salome Mcarthur APRN [address] [place] [address] PCP - General Family Medicine 05/30/15 12/11/23 documented as of this encounter
--- OUTSIDE RECORDS SUMMARY | 2024-04-16 15:43 | XMS_ITS | Encounter Summary ---
Author Organization [facility] [place] [address] Care Team Providers Care Tool Dispatcher Name Role Phone Salome Mcarthur APRN Primary Care Provider +1 [phone] Reason for Visit * Reason Comments Follow-up Encounter Details Date Type Department Care Team (Late st Contact Info) Description 02/15/2016 1:00 PM EST Office Visit [place] [address] Lani Wallis APRN [facility] [place] [address] NAFLD (nonalcoholic fatty liver disease) Social History [...] HEPATOLOGY Follow up Visit Nick Mendieta 1940 DESIGNER AND PATTERNMAKER: LANI WALLIS APRN PCP: Salome Mcarthur APRN [...] Wallis APRN Section of Gastroenterology [place] [address] Copy: Salome Mcarthur APRN [address] / [place] [address] 25 of this 30 minute visit in face to face discussion regarding disease, prognosis and treatment documented in this encounter Plan of Treatment Upcoming Encounters Date Type Department Care Team (Late st Contact Info) Description 04/28/2024 11:00 AM EST Appointment [place] [address] Lani Wallis, [facility] [place] [address] 04/28/2024 2:00 PM EST Office Visit [place] [address] Lani Wallis, [facility] [place] [address] Scheduled Orders Name Type Priority Associated Diagnoses [...] Prothrombin Time 13.5 12.0 - 15.0 sec [facility] Comment: An INR [...] International Normalization Ratio 1.0 0.9 - 1.1 [facility] Blood specimen (specimen) 08/21/2016 1:10 PM EDT 08/21/2016 1:25 PM EDT Narrative Resulting Agency Comment Spec In Lab Beti Hudson MD HEMATOLOGY ORDERABLE S [facility] [place] [address] * (ABNORMAL) Comprehensive metabolic panel (non-fasting) (08/21/2016 1:10 PM EDT) Glucose 167 65 - 199 mg/dL [facility] Comment:Diabetes: >=200 mg/d L plus symptoms Blood Urea Nitrogen 18 8 - 18 mg/dL [facility] Creatinine 0.71 0.70 - 1.20 mg/dL [facility] Comment: Please note that the pediatric reference intervals supplied above were not validated at [facility]. Results from pediatric patients should be interpreted in conjunction to the patient's age, height and muscle mass. Sodium 139 135 - 145 mmol/L [facility] Potassium 4.4 3.5 - 5.0 mmol/L [facility] Comment: Please note: ??Patients with WBC >100,000 may have falsely elevated Potassium levels. ??For accurate Potassium quantification in these patients send serum separator tube (gold top) for subsequent determinations. ??Contact the Clinical Chemistry Laboratory if there are any questions. Chloride 95(L) 98 - 107 mmol/L [facility] Carbon Dioxide 28 22 - 31 mmol/L [facility] Anion Gap 16(H) 5 - 15 mmol/L [facility] Calcium 10.7(H) 8.5 - 10.5 mg/dL [facility] Protein, Total 7.7 6.1 - 8.0 gm/dL [facility] Albumin 5.0 3.2 - 5.2 gm/dL [facility] Aspartate Aminotransferase 32(H) 0 - 30 unit/L [facility] Alanine Aminotransferase 38(H) 0 - 30 unit/L [facility] Alkaline Phosphatase 60 40 - 104 unit/L [facility] Bilirubin, Total 0.7 0.2 - 1.3 mg/dL [facility] Bilirubin, Direct 0.2 0.0 - 0.3 mg/dL [facility] Est Glomerular Filtration [...] the following links into your internet browser. [email or web address] Blood specimen (specimen) 08/21/2016 1:10 PM EDT 08/21/2016 1:25 PM EDT Narrative Resulting Agency Comment Spec In Lab Beti Hudson MD CHEMISTRY ORDERABLES [facility] [place] [id number] * US Abdomen Complete With Vascular (08/21/2016 [...] 12:13 pm) PATIENT INFO: ID #: ? [id number] ? : [birth year] (76 yrs) Name: ? NICK MENDIETA ? Visit Date:08/21/2016 11:21 am PERFORMED BY: Performed By: ? Aysha Forde RDMS Attending: ?Chapo GALLO, Dinh Butler Referred By: ?BETI HUDSON MD Secondary Phy.: ?? LANI WALLIS APRN Location: ? [place] SERVICE(S) PROVIDED: ??UABDCVASC - Abdominal Complete Survey with Vascular - 66559, 70876 ??[id number] INDICATIONS: ??Cirrhosis: survey for hepatocellular carcinoma, ??evaluate [...] Final 08/21/2016 12:13pm) PATIENT INFO: ID #: [id number] : 42 (76 yrs) Name: NICK MENDIETA Visit Date:08/21/2016 11:21 am PERFORMED BY: Performed By: Aysha Forde RDMS Attending: Dinh Cowan MD Referred By: BETI HUDSON MD Secondary Phy.: LANI WALLIS APRN Location: [place] SERVICE(S) PROVIDED: UABDCVASC - Abdominal Complete Survey with Vascular - 58216, 15485 [id number] INDICATIONS: Cirrhosis: survey for hepatocellular carcinoma, evaluate [...] disease documented in this encounter Care Teams Tool Dispatcher Relationship Specialty Start Date End Date Salome Mcarthur, MANUFACTURED BUILDINGS SUPERVISOR [address] [place] [address] PCP - General Family Medicine 05/30/15 12/11/23 documented as of this encounter
--- OUTSIDE RECORDS SUMMARY | 2024-04-16 15:43 | XMS_ITS | Encounter Summary ---
[place] [address] Care Team Providers Care Gear Setter Name Role Phone Salome Mcarthur APRN Primary Care Provider [phone] Reason for Visit * Reason Onset Date Comments Prior Authorization 02/27/2017 Encounter Details Date Type Department Care Team (Late st Contact Info) Description 02/27/2017 Telephone [place] [address] Malika Cantrell RN Prior Authorization Social History [...] 4:42 PM EST 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 BID for diagnosis of hepatic encelopathy Pharmacy [facility] Decision pending documented in this encounter Plan of Treatment Upcoming Encounters Date Type Department Care Team (Late st Contact Info) Description 04/28/2024 11:00 AM EST Appointment [place] [address] Molly Cui, [employer] [facility] [place] [address] 04/28/2024 2:00 PM EST Office Visit [place] [address] Molly Cui, [facility] [place] [address] documented as of this encounter Visit Diagnoses Not on filedocumented in this encounter Care Teams Gear Setter Relationship Specialty Start Date End Date Salome Mcarthur APRN [address] [place] [address] PCP - General Family Medicine 05/30/15 12/11/23 documented as of this encounter
--- OUTSIDE RECORDS SUMMARY | 2024-04-16 15:43 | XMS_ITS | Encounter Summary ---
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 Social History [...] 04/28/2024 11:00 AM EST [place] [address] Molly Cui [facility] [place] [address] 04/28/2024 2:00 PM EST Office [place] [address] Molly Cui [facility] [place] [address] documented as of this encounter Visit Diagnoses Diagnosis 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
--- OUTSIDE RECORDS SUMMARY | 2024-04-16 15:43 | XMS_ITS | Encounter Summary ---
Author Organization [place] [address] Care Team Providers Care Tail End Rider Name Role Phone Salome Lopez APRN Primary Care Provider [phone] [phone] Reason for Visit * Reason Comments GI Problem * Consultation (Routine) - Closed Specialty Diagnoses / Procedures Referred By Jose bermudez Referred To Contact Gastroenterology Diagnoses fatty liver disease Salome Lopez APRN [address] [place] [address] [facility] [address] [address] Referral ID Status Reason Start Date Expiration Date V isits Requested Visits Authorized [id number] Closed Evaluate and Treat [facility] 05/30/2015 05/29/2016 1 1 Encounter Details Date Type Department Care Team (Late st Contact Info) Description 06/28/2015 2:30 PM EDT Office [place] [address] Lani Wallis APRN [facility] [place] [address] NAFLD (nonalcoholic fatty liver disease); Cirrhosis of [...] HEPATOLOGY NEW PATIENT CONSULTATION Nick Mendieta 1940 CORE WORKER: LANI WALLIS APRN PCP: SALOME LOPEZ APRN [...] alcohol. Her sister is followed here at [facility] and is thinking about liver transplant. In [...] 100 mg by mouth as needed. ??? Maurepas-3 Fatty Acids-Vitamin E (FISH OIL) 1,000 mg [...] Vibration Controlled Transient Elastography (VCTE) or Fibroscan [place] Protocol: Patient's identity, procedure and site were [...] Wallis APRN Section of Gastroenterology [place] [address] Copy: SALOME LOPEZ APRN [address] / [place] [address] documented in this encounter Miscellaneous Notes * Addendum Note - Lexis Pineda - 06/28/2015 4:20 PM EDTAddended by: LEXIS PINEDA on: 06/28/2015 04:20 PM Modules accepted: Orders documented in this encounter Plan of Treatment Upcoming Encounters Date Type Department Care Team (Late st Contact Info) Description 04/28/2024 11:00 AM EST [place] [address] Lani Wallis, [facility] [place] [address] 04/28/2024 2:00 PM EST Office [place] [phone] Lani Wallis, [facility] [place] [place] [address] Scheduled Orders Name Type Priority Associated Diagnoses [...] Prothrombin Time 13.4 12.0 - 15.0 sec [facility] Comment: An INR [...] International Normalization Ratio 1.0 0.9 - 1.1 [facility] Blood specimen (specimen) 02/15/2016 1:48 PM EST 02/15/2016 1:52 PM EST Narrative Resulting Agency Comment Spec In Lab Tremaine Rock MD HEMATOLOGY ORDERABL ES [facility] [place] [address] * (ABNORMAL) Comprehensive metabolic panel (non-fasting) (02/15/2016 1:48 PM EST) Glucose 205(H) 65 - 199 mg/dL [facility] Comment:Diabetes: >=200 mg/d L plus symptoms Blood Urea Nitrogen 15 8 - 18 mg/dL [facility] Creatinine 0.90 0.70 - 1.20 mg/dL [facility] Comment: Please note that the pediatric reference intervals supplied above were not validated at [facility]. Results from pediatric patients should be interpreted in conjunction to the patient's age, height and muscle mass. Sodium 141 135 - 145 mmol/L [facility] Potassium 4.0 3.5 - 5.0 mmol/L [facility] Comment: Please note: ??Patients with WBC >100,000 may have falsely elevated Potassium levels. ??For accurate Potassium quantification in these patients send serum separator tube (gold top) for subsequent determinations. ??Contact the Clinical Chemistry Laboratory if there are any questions. Chloride 98 98 - 107 mmol/L [facility] Carbon Dioxide 29 22 - 31 mmol/L [facility] Anion Gap 14 5 - 15 mmol/L [facility] Calcium 10.5 8.5 - 10.5 mg/dL [facility] Protein, Total 7.1 6.1 - 8.0 gm/dL [facility] Albumin 4.7 3.2 - 5.2 gm/dL [facility] Aspartate Aminotransferase 37(H) 0 - 30 unit/L [facility] Alanine Aminotransferase 31(H) 0 - 30 unit/L [facility] Alkaline Phosphatase 44 40 - 104 unit/L [facility] Bilirubin, Total 0.5 0.2 - 1.3 mg/dL [facility] Bilirubin, Direct 0.2 0.0 - 0.3 mg/dL [facility] Est Glomerular Filtration Rate >60 >=60 [facility] Comment: This estimated GFR [...] the following links into your internet browser. [email or web address] Blood specimen (specimen) 02/15/2016 1:48 PM EST 02/15/2016 1:52 PM EST Narrative Resulting Agency Comment Spec In Lab Tremaine Rock MD CHEMISTRY ORDERABLE S [facility] [place] [address] * US Abdomen Complete With Vascular (02/15/2016 [...] 01:34 pm) PATIENT INFO: ID #: ? [id number] ? : [birth year] (75 yrs) Name: ? NICK MENDIETA ? Visit Date:02/15/2016 10:44 am PERFORMED BY: Performed By: ? Colton Copopla RDMS Attending: ?Jaja GALLO, Sumi Kang Referred By: ?TREMAINE ROCK MD Secondary Phy.: ?? LANI WALLIS APRN Location: ? [place] SERVICE(S) PROVIDED: ??UABDCVASC - Abdominal Complete Survey with Vascular - 99608, 73916 ??[id number] INDICATIONS: ??Cirrhosis: survey for Hepatocellular carcinoma, ??evaluate [...] Final 02/15/2016 01:34pm) PATIENT INFO: ID #: [id number] : [birth year] (75 yrs) Name: NICK MENDIETA Visit Date:02/15/2016 10:44 am PERFORMED BY: Performed By: Colton Coppola RDMS Attending: Sumi Wilkinson MD Referred By: TREMAINE ROCK MD [facility] Phy.: LANI WALLIS APRN Location: [place] SERVICE(S) PROVIDED: UABDCVASC - Abdominal Complete Survey with Vascular - 88117, [id number] INDICATIONS: Cirrhosis: survey for Hepatocellular carcinoma, evaluate [...] 04:17 pm) Patient Info ID #: ? [id number] ? : [birth year] (75 yrs) Name: ? NICK MENDIETA ? Visit Date:07/22/2015 09:18 am Performed By Performed By: ? Michelle Major RDMS Attending: ?Juliane GALLO, Meghan Ventura Associate: ?Mat Dotson MD Referred By: ?TREMAINE ROCK MD Service(s) Provided ??UABDCVASC - Abdominal Complete Survey with Vascular - 22356, 35849 ??[id number] Indications ??Cirrhosis: survey for hepatocellular carcinoma, ??evaluate [...] Final 08/03/2015 04:17pm) Patient Info ID #: [id number] : [birth year] (75 yrs) Name: NICK MENDIETA Visit Date:07/22/2015 09:18 am Performed By Performed By: Michelle Major RDMS Attending: Meghan Cardozo MD Associate: Mat Dotson MD Referred By: TREMAINE ROCK MD Service(s) Provided UABDCVASC - Abdominal Complete Survey with Vascular - 41044, 99875 [id number] Indications Cirrhosis: survey for hepatocellular carcinoma, evaluate [...] 4:22 PM EDT) Neutrophil % 48.9 % [facility] Neutrophil Absolute 4.02 1.50 - 6.30 x10(3)/[facility] Lymph % 43.3 % [facility] Lymphocytes Abs 3.6 1.0 - 3.6 x10(3)/[facility] Monocyte % 6.3 % [facility] Monocyte Abs 0.5 0.2 - 1.0 x10(3)/[facility] Eos % 1.1 % [facility] Eosinophils Abs 0.1 0.0 - 0.5 x10(3)/[facility] Basophil % 0.2 % [facility] Baso Absolute 0.0 0.0 - 0.2 x10(3)/[facility] Immature Gran % 0.20 % [facility] Comment: Immature granulocytes(IG's)percentage and absolute count will include metamyelocytes, myelocytes, and promyelocytes. Blood smears from CBCs yielding IG's will be scanned manually for concordance. If this scan disagrees with the automated IG or if promyelocytes are noted, a manual differential will be performed. Immature Gran Absolute 0.02 0.00 - 0.05 x10(3)/[facility] Blood specimen (specimen) 06/28/2015 4:22 PM EDT 06/28/2015 4:24 PM EDT Narrative Resulting Agency Comment Spec In Lab Tremaine Rock MD HEMATOLOGY ORDERABL ES [facility] [place] [address] * Hemogram (06/28/2015 4:22 PM EDT) White Blood Cell 8.2 4.0 - 10.0 x10(3)/[facility] Red Blood Cell 4.57 3.93 - 5.22 x10(6)/[facility] Hemoglobin 14.4 11.2 - 15.7 gm/dL [facility] Hematocrit 42.0 34.0 - 45.0 % [facility] Mean Cell Volume 91.9 79.0 - 94.0 fL [facility] Mean Cell Hemoglobin 31.5 26.6 - 32.2 pg [facility] Mean Cell Hemoglobin Concentration 34.3 32.0 - 36.5 gm/dL [facility] Platelet 168 145 - 370 x10(3)/[facility] RDW Standard Deviation 42.1 35.0 - 46.0 fL [facility] RDW coefficient of variation 12.5 10.9 - 14.4 % [facility] Mean Platelet Volume 11.6 9.0 - 12.0 fL [facility] Blood specimen (specimen) 06/28/2015 4:22 PM EDT 06/28/2015 4:24 PM EDT Narrative Resulting Agency Comment Spec In Lab Tremaine Rock MD HEMATOLOGY ORDERABL ES [facility] [place] [address] * Hepatitis B Surface Antigen (06/28/2015 4:22 PM EDT) Hepatitis B Surface Antigen Negative Negative [facility] Blood specimen (specimen) 06/28/2015 4:22 PM EDT 06/28/2015 4:25 PM EDT Narrative Resulting Agency Comment Spec In Lab Tremaine Rock MD CHEMISTRY ORDERABLE S Performing Organization Address [facility]/ZIP Co de Phone Number [facility] [place] [address] * Hepatitis C Antibody (06/28/2015 4:22 PM EDT) Hepatitis C Antibody Negative Negative [facility] Blood specimen (specimen) 06/28/2015 4:22 PM EDT 06/28/2015 4:25 PM EDT Narrative Resulting Agency Comment Spec In Lab Tremaine Rock MD CHEMISTRY ORDERABLE S Performing Organization Address [facility] de Phone Number [facility] [place] [address] * Hepatitis B Surface Antibody (06/28/2015 4:22 PM EDT) Hepatitis B Surface Antibody Negative [facility] Comment: Expected Results: Vaccinated: Positive Unvaccinated: Negative Please note: A positive result for this assay is consistent with a concentration of anti-HBs antibodies >10mIU/ml, which indicates that anti-HBs antibodies have been detected at levels consistent with protective immunity against HBV infection. Blood specimen (specimen) 06/28/2015 4:22 PM EDT 06/28/2015 4:25 PM EDT Narrative Resulting Agency Comment Spec In Lab Trmeaine Rock MD CHEMISTRY ORDERABLE S Performing Organization Address [facility] Co de Phone Number [facility] [place] [address] * Hepatitis A Antibody, Total (06/28/2015 4:22 PM EDT) Hepatitis A ANTIBODY, TOTAL Negative Negative [facility] Blood specimen (specimen) 06/28/2015 4:22 PM EDT 06/28/2015 4:25 PM EDT Narrative Resulting Agency Comment Spec In Lab Tremaine Rock MD CHEMISTRY ORDERABLE S [facility] [place] [address] * Hepatitis B Core Antibody, Total (06/28/2015 4:22 PM EDT) Hepatitis B Core Antibody Negative Negative [facility] Blood specimen (specimen) 06/28/2015 4:22 PM EDT 06/28/2015 4:25 PM EDT Narrative Resulting Agency Comment Spec In Lab Tremaine Rock MD CHEMISTRY ORDERABLE S Performing Organization Address City/[facility]/ZIP Co de Phone Number [facility] [place] [address] * Iron and TIBC (06/28/2015 4:22 PM EDT) Iron 101 30 - 150 mcg/dL [facility] TIBC 432 250 - 450 mcg/dL [facility] Iron Saturation 23 20 - 50 % [facility] Blood specimen (specimen) 06/28/2015 4:22 PM EDT 06/28/2015 4:25 PM EDT Narrative Resulting Agency Comment Spec In Lab Tremaine Rock MD CHEMISTRY ORDERABLE S Performing Organization Address City/[facility]/ZIP Co de Phone Number [facility] [place] [address] * Ferritin (06/28/2015 4:22 PM EDT) Ferritin 152 30 - 400 ng/mL [facility] Comment: Pediatric reference ranges not verified at [facility], interpret with caution. Reference ranges for females greater than 50 years of age approach values for men, i.e., 30-400 ng/mL. Blood specimen (specimen) 06/28/2015 4:22 PM EDT 06/28/2015 4:25 PM EDT Narrative Resulting Agency Comment Spec In Lab Tremaine Rock MD CHEMISTRY ORDERABLE S [facility] [place] [address] documented in this encounter Visit Diagnoses Diagnosis [...] type documented in this encounter Care Teams Tail End Rider Relationship Specialty Start Date End Date Salome Lopez, CNC MACHINE SETTER [address] [place] [address] PCP - General Family Medicine 05/30/15 12/11/23 documented as of this encounter
--- OUTSIDE RECORDS SUMMARY | 2024-04-16 15:43 | XMS_ITS | Encounter Summary ---
Author Organization [facility] Address [facility] [place] [address] Care Team Providers Care Biodiesel Engine Specialist Name Role Phone Lizbet Galindo APRN Primary Care Provider + Encounter Details Date Type Department Care Team (Late st Contact Info) Description 07/22/2012 10:15 AM EDT [place] [phone] Sandra Beltrán MD [facility] [place] [address] Mixed incontinence (Primary Dx) Discharge Disposition: Home [...] of Systems: General Health: Good. - diabetes POT PUSHER - migrane headaches, no loss of consciousness. [...] Appendectomy 1956 ??? Cystocele repair 08/2011 at [facility] ??? Rectocele repair 08/2011 at [facility] ??? Cholecystectomy, laparoscopic 1997 She [...] 04/28/2024 11:00 AM EST [place] [address] Molly Cui APRN [facility] [place] [address] 04/28/2024 2:00 PM EST Office [place] [address] Molly Cui APRN [facility] [place] [address] documented as of this encounter Visit Diagnoses Diagnosis Mixed incontinence- Primary Mixed incontinence urge and stress (male)(female) documented in this encounter Care Teams Biodiesel Engine Specialist Relationship Specialty Start Date End Date Lizbet Galindo APRN PCP - General 06/30/12 05/29/15 documented as of this encounter
--- OUTSIDE RECORDS SUMMARY | 2024-04-16 15:43 | XMS_ITS | Encounter Summary ---
Author Organization [facility] [address] Care Team Providers Care Staffing Specialist Name Role Phone Salome Mcarthur APRN Primary Care Provider [phone] Reason for Visit * Auth/Cert Specialty Diagnoses / Procedures Referred By Jose t Referred To Contact Diagnoses Fatty (change of) liver, not elsewhere classified Unspecified cirrhosis of liver Cirrhosis, varices screening (IVCS) Procedures PRO UPPER GI ENDOSCOPY, DIAGNOSTIC EGD, UPPER GI ENDOSCOPY Referral ID Status Reason Start Date Expiration Date Visits Re quested Visits Authorized [id number] 1 1 Encounter Details Date Type Department Care Team (Latest Contact Info) Description 07/14/2015 1:02 PM EDT - 07/14/2015 3:58 PM EDT Hospital [place] [address] Leticia Ashraf MD Discharge Disposition: Home Social History Tobacco Use [...] better as expected. Saturday-Saturday Same Day Endo [phone] Otherwise contact [phone] and ask to speak to the excelsior cutter special education coordinator Follow-up care is a palomo part of [...] signed by: Andrew Newman Gastroenterology Fellow [facility] Pager [phone] 07/14/2015 documented in this encounter Plan of Treatment Upcoming Encounters Date Type Department Care Team (Late st Contact Info) Description 04/28/2024 11:00 AM [place] [address] Molly Cui [facility] [place] [address] 04/28/2024 2:00 PM EST Office [place] [address] Molly Cui [facility] [place] [address] documented as of this encounter Procedures Procedure [...] Report (07/14/2015 3:04 PM EDT) Final Diagnosis [id number] ? Location: 4T; EA01; A The signing [...] sing: (T1) ??pps 07/18/2015 5:04 PM EDT [facility] GI Biopsy 07/14/2015 3:04 PM EDT 07/14/2015 3:04 PM EDT GI Biopsy 07/14/2015 3:04 PM EDT 07/14/2015 3:04 PM EDT Leticia Ashraf MD PATHOLOGY/CYTOLOGY O CORAL Performing Organization Address [facility] Co de Phone Number [facility] [place] [address] * Specimen to Pathology (surgical or derm) (07/14/2015 3:04 PM EDT) AP Specimen 07/14/2015 3:04 PM EDT 07/14/2015 3:04 PM EDT Narrative [facility] - 07/14/2015 3:04 PM EDT Specimen requisition ordered. ??Separate Pathology report to follow Leticia Ashraf MD PATHOLOGY/CYTOLOGY O [place]AL Performing Organization Address [facility] Co de Phone Number [facility] [place] [address] * Specimen to Pathology (surgical or derm) (07/14/2015 3:04 PM EDT) AP Specimen 07/14/2015 3:04 PM EDT 07/14/2015 3:04 PM EDT Narrative [facility] - 07/14/2015 3:04 PM EDT Specimen requisition ordered. ??Separate Pathology report to follow Leticia Ashraf MD PATHOLOGY/CYTOLOGY O CORAL Performing Organization Address City/[facility] Co de Phone Number [facility] [place] [address] * POCT Fingerstick Glucose (07/14/2015 2:32 PM EDT) Glucose, POC 101 60 - 199 mg/dl 07/14/2015 2:32 PM EDT Leticia Ashraf MD POINT OF CARE TEST O CORAL * POCT Glucose (07/14/2015 2:29 PM EDT) Glucose, POC 101 65 - 199 mg/dL [facility] Comment: Supplemental ranges: <140 mg/dL before meals <180 mg/dL all other times of the day Blood specimen (specimen) 07/14/2015 2:29 PM EDT 07/14/2015 2:29 PM EDT Leticia Ashraf MD POINT OF CARE TEST O CORAL Performing Organization Address City/[facility] Co de Phone Number [facility] [place] [address] * UPPER GI ENDOSCOPY (07/14/2015 2:20 PM EDT) UPPER GI ENDOSCOPY [facility] Endoscopy Patient Name: Milka Corbett ? Procedure Date: 07/14/2015 2:20 PM ? Date of : 1940 ? Age: 75 ? Order #: [id number] ? Procedure: ? Upper GI endoscopy Indications: ? Screening procedure, Cirrhosis rule ? out esophageal varices Providers: ? Andrew Rodriges MD, ? Yaw Rangel, ? RN Referring : ?Sophia Mcarthur MD [...] Follow up with Molly Cui ? Leticia DillanMelida Ashraf Leticia Dillan Ashraf, 07/14/2015 3:02 PM This report has been signed electronically. Number of Addenda: 0 Note Initiated On: 07/14/2015 2:20 PM PROVATION 07/14/2015 2:20 PM EDT Salome Mcarthur [employer] [facility] [employer]ATION documented in [...] on Melissa 07/14/15 at 1435, Until Melissa 16 at 1526, Intra-Operative (Intra-Procedure), Routine 1435 (Given - Provid er: Apoorva Beyer RN - Comment: see fentanyl same time)1440 (Given - Provider: Apoorva Beyer RN - Comment: see fentanyl same time) documented in this encounter Care Teams Staffing Specialist Relationship Specialty Start Date End Date Salome Mcarthur, LORETO [address] [place] [address] PCP - General Family Medicine 05/30/15 12/11/23 documented as of this encounter
--- OUTSIDE RECORDS SUMMARY | 2024-04-16 15:43 | XMS_ITS | Encounter Summary ---
Author Organization [facility] [place] [address] Care Team Providers Care Investigative Writer Name Role Phone Salome Mcarthur APRN Primary Care Provider +[phone] Encounter Details Date Type Department Care Team (Latest Contact Info) Description 02/15/2016 2:00 PM EST Laboratory Appointment Lab [address] [place] [address] NAFLD (nonalcoholic fatty liver disease); [...] 04/28/2024 11:00 AM [place] [address] Molly Cui [facility] [address] 04/28/2024 2:00 PM EST Office [place] [address] Molly Cui [facility] [place] [address] documented as of this encounter [...] 1:48 PM EST) Neutrophil % 58.4 % [facility] Neutrophil Absolute 3.07 1.70 - 6.10 x10(3)/[facility] LABOR[facility] Lymph % 30.9 % [facility] Lymphocytes Abs 1.6 0.9 - 3.2 x10(3)/[facility] LABORAT[facility] Monocyte % 8.8 % [facility] Monocyte Abs 0.5 0.3 - 0.9 x10(3)/[facility] LABORATORY Eos % 1.3 % [facility] Eosinophils Abs 0.1 0.0 - 0.4 x10(3)/[facility] LABOR[facility] Basophil % 0.4 % [facility] Baso Absolute 0.0 0.0 - 0.1 x10(3)/[facility] LABORATORY Immature Gran % 0.20 % [facility] Comment: Immature granulocytes(IG's)percentage and absolute count will include metamyelocytes, myelocytes, and promyelocytes. Blood smears from CBCs yielding IG's will be scanned manually for concordance. If this scan disagrees with the automated IG or if promyelocytes are noted, a manual differential will be performed. Immature Gran Absolute 0.01 0.00 - 0.04 x10(3)/mcL [facility] Blood specimen (specimen) 02/15/2016 1:48 PM EST 02/15/2016 1:52 PM EST Narrative Resulting Agency Comment Spec In Lab Irwin Rock MD HEMATOLOGY ORDERABL ES [facility] [place] [address] * (ABNORMAL) Hemogram (02/15/2016 1:48 PM EST) White Blood Cell 5.2 4.0 - 9.5 x10(3)/mc L [facility] Red Blood Cell 4.56 4.00 - 5.21 x10(6)/mc L [facility] Hemoglobin 13.8 11.7 - 15.5 gm/dL [facility] Hematocrit 41.2 35.7 - 45.8 % [facility] Mean Cell Volume 90.4 82.6 - 94.4 fL [facility] Mean Cell Hemoglobin 30.3 27.1 - 32.0 pg [facility] Mean Cell Hemoglobin Concentration 33.5 31.7 - 35.0 gm/dL [facility] Platelet 143(L) 145 - 357 x10(3)/mc L [facility] RDW Standard Deviation 41.3 37.0 - 46.0 fL [facility] RDW coefficient of variation 12.5 11.5 - 14.1 % [facility] Mean Platelet Volume 11.1 7.6 - 12.9 fL [facility] NRBC% auto 0.0 % [facility] NRBC Absolute 0.000 0.000 - 0.000 x10(3)/mc L [facility] Blood specimen (specimen) 02/15/2016 1:48 PM EST 02/15/2016 1:52 PM EST Narrative Resulting Agency Comment Spec In Lab Irwin Rock MD HEMATOLOGY ORDERABL ES Performing Organization Address [facility] de Phone Number [facility] [place] [address] * Prothrombin Time (02/15/2016 1:48 PM EST) Prothrombin Time 13.4 12.0 - 15.0 sec [facility] Comment: An INR <2.0 [...] International Normalization Ratio 1.0 0.9 - 1.1 [facility] Blood specimen (specimen) 02/15/2016 1:48 PM EST 02/15/2016 1:52 PM EST Narrative Resulting Agency Comment Spec In Lab Irwin Rock MD HEMATOLOGY ORDERABL ES Performing Organization Address [facility] de Phone Number [facility] [place] [address] * (ABNORMAL) Comprehensive metabolic panel (non-fasting) (02/15/2016 1:48 PM EST) Glucose 205(H) 65 - 199 mg/dL [facility] Comment:Diabetes: >=200 mg/d L plus symptoms Blood Urea Nitrogen 15 8 - 18 mg/dL [facility] Creatinine 0.90 0.70 - 1.20 mg/dL [facility] Comment: Please note that the pediatric reference intervals supplied above were not validated at [facility]. Results from pediatric patients should be interpreted in conjunction to the patient's age, height and muscle mass. Sodium 141 135 - 145 mmol/L [facility] Potassium 4.0 3.5 - 5.0 mmol/L [facility] Comment: Please note: ??Patients with WBC >100,000 may have falsely elevated Potassium levels. ??For accurate Potassium quantification in these patients send serum separator tube (gold top) for subsequent determinations. ??Contact the Clinical Chemistry Laboratory if there are any questions. Chloride 98 98 - 107 mmol/L [facility] Carbon Dioxide 29 22 - 31 mmol/L [facility] Anion Gap 14 5 - 15 mmol/L [facility] Calcium 10.5 8.5 - 10.5 mg/dL [facility] Protein, Total 7.1 6.1 - 8.0 gm/dL [facility] Albumin 4.7 3.2 - 5.2 gm/dL [facility] Aspartate Aminotransferase 37(H) 0 - 30 unit/L [facility] Alanine Aminotransferase 31(H) 0 - 30 unit/L [facility] Alkaline Phosphatase 44 40 - 104 unit/L [facility] Bilirubin, Total 0.5 0.2 - 1.3 mg/dL [facility] Bilirubin, Direct 0.2 0.0 - 0.3 mg/dL [facility] Est Glomerular Filtration Rate >60 >=60 [facility] Comment: This estimated GFR [...] the following links into your internet browser. [email or web address] Blood specimen (specimen) 02/15/2016 1:48 PM EST 02/15/2016 1:52 PM EST Narrative Resulting Agency Comment Spec In Lab Irwin Rock MD CHEMISTRY ORDERABLE S [facility] [place] [address] documented in this encounter Visit Diagnoses Diagnosis NAFLD (nonalcoholic fatty liver disease) Other chronic nonalcoholic liver disease Cirrhosis of liver without ascites, unspecified hepatic cirrhosis type documented in this encounter Care Teams Investigative Writer Relationship Specialty Start Date End Date Salome Mcarthur, [employer] SUPERVISOR [address] [place] [address] PCP - General Family Medicine 05/30/15 12/11/23 documented as of this encounter
--- OUTSIDE RECORDS SUMMARY | 2024-04-16 15:43 | XMS_ITS | Encounter Summary ---
[place] [address] Care Team Providers Care Melt House Centrifugal Operator Name Role Phone Salome Mcarthur APRN Primary Care Provider [phone] Reason for Visit * Reason Onset Date Comments Advice Only 09/14/2016 Encounter Details Date Type Department Care Team (Late st Contact Info) Description 09/14/2016 Telephone [place] [phone] Malika Cantrell manager beauty Only Social History Tobacco Use Types Packs/Day [...] 04/28/2024 11:00 AM EST [place]oint[place] [address] Molly Cui, [facility] [place] [address] 04/28/2024 2:00 PM EST Office [place] [phone] Molly Cui, [facility] [place] [address] documented as of this encounter Visit Diagnoses Not on filedocumented in this encounter Care Teams Melt House Centrifugal Operator Relationship Specialty Start Date End Date Salome Mcarthur BLOOD OR BLOOD BANK TECHNICIAN [address] [place] [address] PCP - General Family Medicine 05/30/15 12/11/23 documented as of this encounter
--- OUTSIDE RECORDS SUMMARY | 2024-04-16 15:43 | XMS_ITS | Encounter Summary ---
Author Organization [facility] Address [facility] [place] [address] Care Team Providers Care Telephone Interviewer Name Role Phone Salome Mcarthur APRN Primary Care Provider Encounter Details Date Type Department Care Team (Latest Contact Info) Description 02/22/2017 9:37 AM EST - 02/22/2017 11:59 PM [facility] Hospital [place] [phone] Molly Wallis [facility] [place] [address] NAFLD (nonalcoholic fatty liver disease) Discharge Disposition: [...] 04/28/2024 11:00 AM EST [place] [phone] Molly Wallis [facility] [place] [address] 04/28/2024 2:00 PM EST Office [place] [phone] Molly Wallis, [facility] [place] [address] documented as of this encounter Procedures Procedure [...] 10:44 am) PATIENT INFO: ID #: ? [id number] ?: ??[birth year] (76 yrs) Name: ? MILKA MENDIETA ?Visit Date: 02/22/2017 10:24 am PERFORMED BY: Performed By: ? Macario HI, ??Debbi Attending: ?Betty GALLO, Marilee Ragsdale Referred By: ?MOLLY WALLIS Secondary Phy.: ?? MOLLY WALLIS SUPERVISOR PRODUCTION DEPARTMENT Location: ? [place] SERVICE(S) PROVIDED: ??UABDLIM - Abdominal Limited Survey Single ? 99745 ??Organ or Quadrant - [id number] INDICATIONS: ??Compensated cirrhosis, assess for HCC COMPARISON: [...] 02/22/2017 10:44 am) PATIENT INFO: ID #: [id number] : [birth year] (76 yrs) Name: MILKA MENDIETA Visit Date: 02/22/2017 10:24 am PERFORMED BY: Performed By: Debbi Sorto RDMS Attending: Marilee Hernández MD Referred By: MOLLY WALLIS Secondary Phy.: MOLLY WALLIS APRN Location: [place] SERVICE(S) PROVIDED: UABDLIM - Abdominal Limited Survey Single 47734 Organ or Quadrant - [id number] INDICATIONS: Compensated cirrhosis, assess for HCC COMPARISON: [...] disease documented in this encounter Care Teams Telephone Interviewer Relationship Specialty Start Date End Date Salome Mcarthur APRN [address] [place] [address] PCP - General Family Medicine 05/30/15 12/11/23 documented as of this encounter
--- OUTSIDE RECORDS SUMMARY | 2024-04-16 15:43 | XMS_ITS | Encounter Summary ---
Author Organization [facility] [place] [address] Care Team Providers Care Customer Acquisition Manager Name Role Phone Salome Lopez APRN Primary Care Provider [phone] Reason for Visit * Reason Comments Follow-up Encounter Details Date Type Department Care Team (Late st Contact Info) Description 07/22/2015 10:00 AM EDT Office Visit [place] [address] Molly Wallis [facility] [place] [address] NAFLD (nonalcoholic fatty liver disease) Social History [...] HEPATOLOGY Follow up Visit Milka Corbett 1940 SUPERINTENDENT GENERATING PLANT: MOLLY WALLIS APRN PCP: SALOME LOPEZ APRN [...] 100 mg by mouth as needed. ??? [place]-3 Fatty Acids-Vitamin E (FISH OIL) 1,000 mg [...] ?found in the gastric antrum. ?Hematin (altered blood/yxjnwq-oshazs-fihb material) ?was found in the gastric body. [...] Wallis APRN Section of Gastroenterology [place] [address] Copy: SALOME LOPEZ APRN [address] / [place] [id number] 25 of this 30 minute visit in face to face discussion regarding disease, prognosis and treatment documented in this encounter Plan of Treatment Upcoming Encounters Date Type Department Care Team (Late st Contact Info) Description 04/28/2024 11:00 AM EST Appointment Ultrasound at [place] [phone] Molly Wallis LAB REP [facility] [place] [address] 04/28/2024 2:00 PM EST Office Visit [place] [phone] Molly Wallis [facility] [place] [address] documented as of this encounter Visit Diagnoses Diagnosis NAFLD (nonalcoholic fatty liver disease) Other chronic nonalcoholic liver disease documented in this encounter Care Teams Customer Acquisition Manager Relationship Specialty Start Date End Date Salome Lopez APRN [address] [place] [address] PCP - General Family Medicine 05/30/15 12/11/23 documented as of this encounter
--- OUTSIDE RECORDS SUMMARY | 2024-04-16 15:43 | XMS_ITS | Encounter Summary ---
Author Organization [facility] Address [facility] [place] [address] Care Team Providers Care Location Analyst Name Role Phone Salome Mcarthur APRN Primary Care Provider +[phone] Encounter Details Date Type Department Care Team (Latest Contact Info) Description 08/21/2016 10:30 AM EDT - 08/21/2016 11:59 PM EDT Hospital [place] [phone] Beti Hudson MD [facility] [place] [address] NAFLD (nonalcoholic fatty liver disease) Discharge Disposition: [...] 04/28/2024 11:00 AM [place] [address] Molly Wallis [facility] [place] [place] [address] 04/28/2024 2:00 PM EST Office [place] [address] Molly Wallis [facility] [place] [address] documented as of this encounter Procedures Procedure [...] 12:13 pm) PATIENT INFO: ID #: ? [id number] ? : [birth year] (76 yrs) Name: ? MILKA MENDIETA ? Visit Date:08/21/2016 11:21 am PERFORMED BY: Performed By: ? Asyha Forde RDMS Attending: ?Chapo GALLO, Dinh Butler Referred By: ?BETI HUDSON MD Secondary Phy.: ?? MOLLY WALLIS APRN Location: ? [place] SERVICE(S) PROVIDED: ??UABDCVASC - Abdominal Complete Survey with Vascular - 79689, 18559 ??[id number] INDICATIONS: ??Cirrhosis: survey for hepatocellular carcinoma, ??evaluate [...] Final 08/21/2016 12:13pm) PATIENT INFO: ID #: [id number] : [birth year] (76 yrs) Name: MILKA MENDIETA Visit Date:08/21/2016 11:21 am PERFORMED BY: Performed By: Aysha Forde RDMS Attending: Dinh Cowan MD Referred By: BETI HUDSON MD Secondary Phy.: MOLLY WALLIS APRN Location: [place] SERVICE(S) PROVIDED: UABDCVASC - Abdominal Complete Survey with Vascular - 23330, 10200 [id number] INDICATIONS: Cirrhosis: survey for hepatocellular carcinoma, evaluate [...] disease documented in this encounter Care Teams Location Analyst Relationship Specialty Start Date End Date Salome Mcarthur, CATEGORY CONSULTANT [address] [place] [address] PCP - General Family Medicine 05/30/15 12/11/23 documented as of this encounter
--- OUTSIDE RECORDS SUMMARY | 2024-04-16 15:43 | XMS_ITS | Encounter Summary ---
Author [facility] Address [facility] [place] [address] Care Team Providers Care Manager Grant Name Role Phone Salome Mcarthur APRN Primary Care Provider Encounter Details Date Type Department Care Team (Latest Contact Info) Description 07/22/2015 8:04 AM EDT - 07/22/2015 11:59 PM EDT Hospital [place] [phone] Tremaine Nesbitt MD [facility] DR [place] [address] NAFLD (nonalcoholic fatty liver disease); Cirrhosis of [...] 04/28/2024 11:00 AM [place] [address] Molly Cui, [facility] [place] [address] 04/28/2024 2:00 PM EST Office [place] [address] Molly Cui, [facility] [place] [address] documented as of this encounter Procedures Procedure [...] 04:17 pm) Patient Info ID #: ? [id number] ? : [birth year] (75 yrs) Name: ? MILKA MENDIETA ? Visit Date:07/22/2015 09:18 am Performed By Performed By: ? Michelle Major RDMS Attending: ?Juliane GALLO, Meghan Ventura Associate: ?Nila GALLO, Mat Alvarado Referred By: ?TREMAINE NESBITT MD Service(s) Provided ??UABDCVASC - Abdominal Complete Survey with Vascular - 74062, 47126 ??[id number] Indications ??Cirrhosis: survey for hepatocellular carcinoma, ??evaluate [...] Final 08/03/2015 04:17pm) Patient Info ID #: [id number] : 42 (75 yrs) Name: MILKA MENDIETA Visit Date:07/22/2015 09:18 am Performed By Performed By: Michelle Major RDMS Attending: Meghan Cardozo MD Associate: Mat Dotson MD Referred By: TREMAINE NESBITT MD Service(s) Provided UABDCVASC - Abdominal Complete Survey with Vascular - 08315, 17599 [id number] Indications Cirrhosis: survey for hepatocellular carcinoma, evaluate [...] type documented in this encounter Care Teams Manager Grant Relationship Specialty Start Date End Date Salome Mcarthur APRN [address] [place] [address] PCP - General Family Medicine 05/30/15 12/11/23 documented as of this encounter
--- OUTSIDE RECORDS SUMMARY | 2024-04-16 15:43 | XMS_ITS | Encounter Summary ---
Author Organization [facility] Address [facility] [place] [address] Care Team Providers Care Information Assurance Engineer Name Role Phone Lizbet Zhang APRN Primary Care Provider + Encounter Details Date Type Department Care Team (Late st Contact Info) Description 07/12/2012 Telephone Obstetrics [place] [phone] Tina Norwood MD Social History Tobacco Use Types Packs/Day [...] was negative for malignancy. Plan/Instructions: No further labor relations officer evaluation needed for this. TINA NORWOOD MD, PGY3 documented in this encounter Plan of Treatment Upcoming Encounters Date Type Department Care Team (Late st Contact Info) Description 04/28/2024 11:00 AM EST Appointment [place] [address] Molly Cui, [facility] [place] [address] 04/28/2024 2:00 PM EST Office Visit [place] [phone] Molly Cui, [facility] [place] [address] documented as of this encounter Visit Diagnoses Not on filedocumented in this encounter Care Teams Information Assurance Engineer Relationship Specialty Start Date End Date Lizbet Zhang APRN PCP - General 06/30/12 05/29/15 documented as of this encounter
--- OUTSIDE RECORDS SUMMARY | 2024-04-16 15:43 | XMS_ITS | Encounter Summary ---
Author Organization [facility] Address [facility] [place] [address] Care Team Providers Care Fitness Studies Teacher Name Role Phone Lizbet Zhang APRN Primary Care Provider + Reason for Visit * Reason Comments Establish Care Vaginal Discharge disc surgery - polyp s Encounter Details Date Type Department Care Team (Late st Contact Info) Description 07/08/2012 3:30 PM EDT Office Visit [place]stetrics [place] [phone] Loulou Hamilton MD [facility] DR OBSTETRICS & [place] [address] Vaginal lesion (Primary Dx); Hx of bladder [...] EDT REPRODUCTIVE MEDICINE NEW PATIENT CONSULT NOTE [place], [place] Tim Roque MD Professor and Chair Department of WARDROBE ATTENDANT Loulou Watson MD IVF/ART Millinery Salesperson MD Josee Haas MD Elizabeth Todd, ARNP Chief Complaint: 1.) vaginal polyp SUBJECTIVE: Ms. Mendieta is a 72 y.o. post-menopausal woman who I am asked to consult on at the request of Dr. Boykin, a urologist at [facility] for a discussion with regardsto recently [...] and rectocele repair by a urologist at [facility]. This was done for urinary incontinence which has actually gotten worse over the last 2 years (especially at night) and she is awaiting an appointment with urology here at [facility] for evaluation. Abdominal hysterectomy done in 1986 - for endometriosis. REHABILITATION CONSULTANT History: LMP 1986. Menarche age 15 q [...] Appendectomy 1956 ??? Cystocele repair 08/2011 at [facility] ??? Rectocele repair 08/2011 at [facility] ??? 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 Family History Problem Relation Age of Onset [...] will call patient with results. Otherwise, benign kitchen steward exam. If polyp negative for malignancy, no further REHABILITATION CONSULTANT evaluation or treatment recommended. Dr. Watson was [...] 04/28/2024 11:00 AM [place] [phone] Molly Cui, [facility] [place] [address] 04/28/2024 2:00 PM EST [place] [phone] Molly Cui [facility] [place] [address] documented as of this encounter Procedures Procedure Name Priority Date/Time Associated Diagnosis Comments REHABILITATION CONSULTANT CYTOLOGY FINAL REPORT Routine 07/08/2012 8:27 PM EDT SURGICAL PATHOLOGY REPORT Routine 07/08/2012 5:37 PM EDT documented in this encounter Results * City Administrator Cytology Final Report (07/08/2012 8:27 PM EDT) City Administrator Cytology Final Report ? [facility] ? Provider: ?? MOE WATSON, ??Pt. Name: ?? NICK MENDIETA ?LOULOU ? Acc #: ?[id number] ?Pt. ? Col Date: ?? 07/08/2012 ?/Sex: ?1940,(72 years),Female ? Rec Date: ?? 07/08/2012 ?LOC: ?5L ? CYTOPATHOLOGY: ??REHABILITATION CONSULTANT ? ---Adequacy--- ? Specimen submitted is satisfactory. Vaginal Only. ? ---Cytopathologic Diagnosis--- ? NORMAL ? Negative for Intraepithelial Lesion or Malignancy (NILM). ? 07/09/12 ?? Screened by: ??LMY ??SLA ? 07/10/12 ?? Verified by: ??ABDON Munoz(ASCP), Stefany Rivera - ? Clinical Cytogenetics Director ? ---Clinical Information--- ? HPV Option: ? No HPV Testing ? Preparation: ?Liquid Based Pap ? Specimen Source: ?Vaginal only/LBP/Diagnostic ? LMP: ?Post menopausal, hx bladder cancer, new posterior ? wall bladder lesion ? Hormones?: ?No ? Hysterectomy?: ?Total Hysterectomy ?: ?No ?: ?No ? I.U.D.?: ?No ? Pelvic Radiation: ? No ? Prior REHABILITATION CONSULTANT Therapy?: ? No ? Hist Abnl Pap/Biopsy?: [...] ??For further ? information please contact the [facility] Laboratory. ? Reference: ??Abkarie CS. ??Agate Setter of Pap Smear Results. ??In: ? Rosy BS, Compa HH, ed. ??The Pap Smear. ??[place]: ??[place], 2002: ? 71-77. JORY MAYFIELD 07/08/2012 8:27 PM EDT Loulou Watson MD PATHOLOGY/C YTOLOGY ORDERABLES [facility] * Surgical Pathology Report (07/08/2012 5:37 PM EDT) Surgical Pathology Report ? [facility] ? Provider: ?? MOE WATSON, ??Pt. Name: ?? NICK MENDIETA ?LOULOU ? Acc #: ?[id number] ?Pt. ? Col Date: ?? 07/08/2012 ?/Sex: [...] bladder documented in this encounter Care Teams Fitness Studies Teacher Relationship Specialty Start Date End Date Lizbet Zhang, LORETO PCP - General 06/30/12 05/29/15 documented as of this encounter
--- OUTSIDE RECORDS SUMMARY | 2024-04-16 15:43 | XMS_ITS | Encounter Summary ---
[place] [address] Care Team Providers Care Manager Personal Name Role Phone Salome Mcarthur APRN Primary Care Provider [phone] Reason for Visit * Auth/Cert Specialty Diagnoses / Procedures Referred By Jose t Referred To Contact Diagnoses Fatty (change of) liver, not elsewhere classified Unspecified cirrhosis of liver Cirrhosis, varices screening (IVCS) Procedures PRO UPPER GI ENDOSCOPY, DIAGNOSTIC EGD, UPPER GI ENDOSCOPY Referral ID Status Reason Start Date Expiration Date Visits Re quested Visits Authorized [id number] 1 1 Encounter Details Date Type Department Care Team (Late st Contact Info) Description 07/14/2015 2:15 PM EDT - 07/14/2015 2:45 PM EDT Surgery [place] [address] Leticia Ashraf MD EGD, UPPER GI ENDOSCOPY (WRVU 2.09) Social [...] better as expected. Saturday-Saturday Same Day Endo [phone] Otherwise contact [phone] and ask to speak to the stone crusher operator laboratory monitor Follow-up care is a palomo part of [...] Electronically signed by: Andrew Newman Gastroenterology Fellow [facility] Pager [phone] 07/14/2015 documented in this encounter Plan of Treatment Upcoming Encounters Date Type Department Care Team (Late st Contact Info) Description 04/28/2024 11:00 AM EST Appointment [place] [address] Molly Cui [facility] [place] [address] 04/28/2024 2:00 PM EST Office Visit [place] [phone] Molly Cui [facility] [place] [place] [address] documented as of this encounter Procedures Procedure [...] Report (07/14/2015 3:04 PM EDT) Final Diagnosis [id number] ? Location: 4T; EA01; A The signing [...] sing: (T1) ??pps 07/18/2015 5:04 PM EDT [facility] GI Biopsy 07/14/2015 3:04 PM EDT 07/14/2015 3:04 PM EDT GI Biopsy 07/14/2015 3:04 PM EDT 07/14/2015 3:04 PM EDT Leticia Ashraf MD PATHOLOGY/CYTOLOGY O CORAL Performing Organization Address [facility] [place] [place] [address] * Specimen to Pathology (surgical or derm) (07/14/2015 3:04 PM EDT) AP Specimen 07/14/2015 3:04 PM EDT 07/14/2015 3:04 PM EDT Narrative [facility] - 07/14/2015 3:04 PM EDT Specimen requisition ordered. ??Separate Pathology report to follow Leticia Ashraf MD PATHOLOGY/CYTOLOGY O CORAL Performing Organization Address [facility] Co de Phone Number [facility] [place] [address] * Specimen to Pathology (surgical or derm) (07/14/2015 3:04 PM EDT) AP Specimen 07/14/2015 3:04 PM EDT 07/14/2015 3:04 PM EDT Narrative [facility] - 07/14/2015 3:04 PM EDT Specimen requisition ordered. ??Separate Pathology report to follow Leticia Ashraf MD PATHOLOGY/CYTOLOGY O CORAL [facility] [place] [address] * POCT Fingerstick Glucose (07/14/2015 2:32 PM EDT) Glucose, POC 101 60 - 199 mg/dl 07/14/2015 2:32 PM EDT Leticia Ashraf MD POINT OF CARE TEST O CORAL * POCT Glucose (07/14/2015 2:29 PM EDT) Glucose, POC 101 65 - 199 mg/dL [facility] Comment: Supplemental ranges: <140 mg/dL before meals <180 mg/dL all other times of the day Blood specimen (specimen) 07/14/2015 2:29 PM EDT 07/14/2015 2:29 PM EDT Leticia Ashraf MD POINT OF CARE TEST O CORAL [facility] [place] [address] * UPPER GI ENDOSCOPY (07/14/2015 2:20 PM EDT) UPPER GI ENDOSCOPY [facility] Endoscopy Patient Name: Milka Corbett ? Procedure Date: 07/14/2015 2:20 PM ? Date of : 1940 ? Age: 75 ? Order #: [id number] ? Procedure: ? Upper GI endoscopy Indications: [...] Follow up with Molly Cui ? Leticia MMelida Ashraf Leticia M Pascale, 07/14/2015 3:02 PM This report has been signed electronically. Number of Addenda: 0 Note Initiated On: 07/14/2015 2:20 PM PROVATION 07/14/2015 2:20 PM EDT Salome Mcarthur PELLETIZER TENDER GENERAL SURGICAL OR DERABLES PROVATION documented in [...] multi-dose injection ONCE PRN, Starting on Melissa 4716 at 1435, Until Melissa 16 at 1526, Intra-Operative (Intra-Procedure), Routine Given 07/14/2015 [...] Melissa 16 at 1526, Intra-Operative (Intra-Procedure), Routine Given 07/14/2015 2:40 PM EDT 1 mg Given 07/14/2015 2:35 PM EDT 1 mg documented in this encounter Active and Recently Administered Medications Times are shown in EDT. Continuous Medication Order 07/12/2015 07/13/2015 07/14/2015 lactated ringers infusion (CANCELED) 100 mL/hr, Intravenous, CONTINUOUS, Starting on Melissa 416 at 1430, Until Melissa 416 at 1526, Endoscopy (Day of Procedure) 1430 (New Bag - Prov ider: Jessika Anand RN) PRN Medication Order 07/12/2015 07/13/2015 07/14/2015 benzocaine (TOPEX) 20 % oral spray (CANCELED) ONCE PRN, Starting on Melissa 416 at 1435, Until Melissa 416 at 1526, Intra-Operative (Intra-Procedure) 1435 (Given - [...] time) documented in this encounter Care Teams Manager Personal Relationship Specialty Start Date End Date Salome Mcarthur APRN [address] [place] [address] PCP - General Family Medicine 05/30/15 12/11/23 documented as of this encounter
--- OUTSIDE RECORDS SUMMARY | 2024-04-16 15:43 | XMS_ITS | Encounter Summary ---
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; [...] 04/28/2024 11:00 AM EST [place] [address] Molly Cui [facility] [place] [address] 04/28/2024 2:00 PM EST Office [place] [address] Molly Cui [facility] [place] [address] documented as of this encounter [...] 9:29 AM EST) Neutrophil % 57.3 % [facility] Neutrophil Absolute 4.25 1.70 - 6.10 x10(3)/[facility] Lymph % 32.4 % [facility] Lymphocytes Abs 2.4 0.9 - 3.2 x10(3)/[facility]OR[facility] Monocyte % 7.9 % [facility] Monocyte Abs 0.6 0.3 - 0.9 x10(3)/[facility]OR[facility]ORY Eos % 1.7 % [facility] Eosinophils Abs 0.1 0.0 - 0.4 x10(3)/[facility] Basophil % 0.4 % [facility] Baso Absolute 0.0 0.0 - 0.1 x10(3)/[facility] Immature Gran % 0.30 % [facility] Comment: Immature granulocytes(IG's)percentage and absolute count will include metamyelocytes, myelocytes, and promyelocytes. Blood smears from CBCs yielding IG's will be scanned manually for concordance. If this scan disagrees with the automated IG or if promyelocytes are noted, a manual differential will be performed. Immature Gran Absolute 0.02 0.00 - 0.04 x10(3)/[facility] Blood specimen (specimen) 02/22/2017 9:29 AM EST 02/22/2017 9:33 AM EST Narrative Resulting Agency Comment Spec In Lab Molly Cui [facility] HEMATOLOGY ORDERAB LES [facility] [place] [address] * (ABNORMAL) Hemogram (02/22/2017 9:29 AM EST) White Blood Cell 7.4 4.0 - 9.5 x10(3)/mc L [facility] Red Blood Cell 4.49 4.00 - 5.21 x10(6)/mc L [facility] Hemoglobin 14.3 11.7 - 15.5 gm/dL [facility] Hematocrit 40.5 35.7 - 45.8 % [facility] Mean Cell Volume 90.2 82.6 - 94.4 fL [facility] Mean Cell Hemoglobin 31.8 27.1 - 32.0 pg [facility] Mean Cell Hemoglobin Concentration 35.3(H) 31.7 - 35.0 gm/dL [facility] Platelet 139(L) 145 - 357 x10(3)/mc L [facility] RDW Standard Deviation 40.0 37.0 - 46.0 fL [facility] RDW coefficient of variation 12.2 11.5 - 14.1 % [facility] Mean Platelet Volume 11.0 7.6 - 12.9 fL [facility] NRBC% auto 0.0 % [facility] NRBC Absolute 0.000 0.000 - 0.000 x10(3)/mc L [facility] Blood specimen (specimen) 02/22/2017 9:29 AM EST 02/22/2017 9:33 AM EST Narrative Resulting Agency Comment Spec In Lab Mollyjuan a Cui ASTROPHYSICS PROFESSOR HEMATOLOGY ORDERAB LES Performing Organization Address City/[facility] de Phone Number [facility] [place] [address] * Prothrombin Time (02/22/2017 9:29 AM EST) Pathologist [facility] Prothrombin Time 13.3 11.8 - 14.0 sec [facility] International Normalization Ratio 1.0 0.9 - 1.1 [facility] Comment: [...] APRN HEMATOLOGY ORDERAB LES Performing Organization Address [facility] Co de Phone Number [facility] [place] [address] * (ABNORMAL) Comprehensive metabolic panel (non-fasting) (02/22/2017 9:29 AM EST) Pathologist [facility] Glucose 209(H) 65 - 199 mg/dL [facility] Comment:Diabetes: >=200 mg/d L plus symptoms Blood Urea Nitrogen 18 8 - 18 mg/dL [facility] Creatinine 0.64(L) 0.70 - 1.20 mg/dL [facility] Sodium 136 135 - 145 mmol/L [facility] Potassium 4.2 3.5 - 5.0 mmol/L [facility] Comment: Please note: ??Patients with WBC >100,000 may have falsely elevated Potassium levels. ??For accurate Potassium quantification in these patients send serum separator tube (gold top) for subsequent determinations. ??Contact the Clinical Chemistry Laboratory if there are any questions. Chloride 96(L) 98 - 107 mmol/L [facility] Carbon Dioxide 26 22 - 31 mmol/L [facility] Anion Gap 14 5 - 15 mmol/L [facility] Calcium 10.2 8.5 - 10.5 mg/dL [facility] Protein, Total 7.1 6.1 - 8.0 gm/dL [facility] Albumin 4.6 3.2 - 5.2 gm/dL [facility] Aspartate Aminotransferase 26 0 - 30 unit/L [facility] Alanine Aminotransferase 29 0 - 30 unit/L [facility] Alkaline Phosphatase 74 40 - 104 unit/L [facility] Bilirubin, Total 0.4 0.2 - 1.3 mg/dL [facility] Est Glomerular Filtration Rate >60 >=60 [facility] Comment: The reported eGFR should be multiplied by 1.2 for patients. The MDRD is not an appropriate measure of renal function for patients with body mass extremes or in patients with acute kidney failure. 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
--- OUTSIDE RECORDS SUMMARY | 2024-04-16 15:43 | XMS_ITS | Encounter Summary ---
Author Organization [facility] [place] [address] Care Team Providers Care Supervisor Billposting Name Role Phone Salome Mcarthur APRN Primary Care Provider [phone] Reason for Visit * Reason Comments Follow-up Encounter Details Date Type Department Care Team (Late st Contact Info) Description 02/22/2017 1:00 PM EST Office [place] [address] Lani Wallis APRN [facility] [place] [address] NAFLD (nonalcoholic fatty liver disease) Social History [...] HEPATOLOGY Follow up Visit Nick Mendieta 1940 SPINNING MACHINE OPERATOR: LANI WALLIS APRN PCP: Salome Mcarthur APRN [...] mouth every 4 hours as needed. ??? [place]-3 Fatty Acids-Vitamin E (FISH OIL) 1,000 [...] Wallis APRN Section of Gastroenterology [place] [address] Copy: Salome Mcarthur APRN [address] / [place] [address] 25 of this 30 minute visit in face to face discussion regarding disease, prognosis and treatment documented in this encounter Plan of Treatment Upcoming Encounters Date Type Department Care Team (Late st Contact Info) Description 04/28/2024 11:00 AM EST [place] [address] Lani Wallis APRN [facility] [place] [address] 04/28/2024 2:00 PM EST Office [place] [address] Lani Wallis APRN [facility] [place] [address] documented as of this encounter Results * [...] Lab Lani Wallis APRN HEMATOLOGY ORDERAB LES [facility] [place] [address] * (ABNORMAL) Comprehensive metabolic panel (non-fasting) (08/22/2017 [...] or in patients with acute kidney failure. [email or web address]/[email or web address] [email or web address]/[email or web address] Blood specimen (specimen) 08/22/2017 10:25 AM EDT 08/22/2017 10:43 AM EDT Narrative Resulting Agency Comment Spec In Lab Lani Wallis APRN CHEMISTRY ORDERABL ES [facility] [place] [address] * (ABNORMAL) US Abdomen Complete (08/22/2017 9:54 [...] 12:24 pm) PATIENT INFO: ID #: ? [id number] ?: [birth year] (77 yrs) Name: ? NICK MENDIETA ?Visit Date: 08/22/2017 09:52 am PERFORMED BY: Performed By: ? Mary HI, ??Lis Attending: ?Jaja GALLO, Sumi Arriaza. Resident: ? Aryan GALLO, Estephanie Nolen Referred By: ?LANI WALLIS Secondary Phy.: ?? LANI WALLIS TRANSMITTER ENGINEER IN CHARGE Location: ? [place] SERVICE(S) PROVIDED: ??UABDC - Abdominal Complete Survey - [id number] ?[id number] INDICATIONS: ??Cirrhosis, survey for hepatoma COMPARISON: RUQ [...] Agency Comment Unexpected Finding Lani Wallis APRN [facility] GEN ORDERAB LES documented in this encounter Visit Diagnoses Diagnosis NAFLD (nonalcoholic fatty liver disease) Other chronic nonalcoholic liver disease NAFLD (nonalcoholic fatty liver disease) Other chronic nonalcoholic liver disease documented in this encounter Care Teams Supervisor Billposting Relationship Specialty Start Date End Date Salome Mcarthur APRN [address] [place] [address] PCP - General Family Medicine 05/30/15 12/11/23 documented as of this encounter
--- OUTSIDE RECORDS SUMMARY | 2024-04-16 15:43 | XMS_ITS | Encounter Summary ---
Author Organization [facility] [place] [address] Care Team Providers Care Projection Printer Name Role Phone Salome Mcarthur APRN Primary Care Provider [phone] Reason for Visit * Reason Onset Date Comments Cirrhosis 07/27/2015 Encounter Details Date Type Department Care Team (Late st Contact Info) Description 07/27/2015 Telephone [place] [phone] Jacque Gale RN Cirrhosis Social History Tobacco [...] 04/28/2024 11:00 AM EST Appointment [place] [address] Molly Cui, [facility] [place] [address] 04/28/2024 2:00 PM EST Office Visit [place] [address] Molly Cui, [facility] [place] [address] documented as of this encounter Visit Diagnoses Not on filedocumented in this encounter Care Teams Projection Printer Relationship Specialty Start Date End Date Salome Mcarthur APRN [address] [place] [address] PCP - General Family Medicine 05/30/15 12/11/23 documented as of this encounter
--- OUTSIDE RECORDS SUMMARY | 2024-04-16 15:43 | XMS_ITS | Encounter Summary ---
Author Organization [place] [address] Care Team Providers Care Workers Compensation Claims Analyst Name Role Phone Salome Mcarthur APRN Primary Care Provider [phone] Reason for Referral * Diagnostic Test (Routine) - Closed Specialty Diagnoses / Procedures Referred By Conturth t Referred To Contact Radiology Diagnoses NAFLD (nonalcoholic fatty liver disease) Procedures MRI Abdomen wwo Contrast (Generic) Molly Cui APRN [facility] [place] [address] [place] [address] Referral ID Status Reason Start Date Expiration Date V isits Requested Visits Authorized [id number] Closed Specialty Service Requested 08/22/2017 08/22/2018 1 1 Reason for Visit * Reason Comments Follow-up Patient is here for a follow up labs. Encounter Details Date Type Department Care Team (Late st Contact Info) Description 08/22/2017 11:30 AM EDT Office [place] [address] Molly Cui GROUP BURNER MACHINE [facility] [place] [address] NAFLD (nonalcoholic fatty liver disease) [...] mouth every 4 hours as needed. ??? [place]-3 Fatty Acids-Vitamin E (FISH OIL) 1,000 mg [...] large extended family. Sister of AB cirrhosis Does not drink alcohol (other than [...] Cui APRN Section of [place] [address] Copy: Salome Mcarthur APRN [address] [facility] [address] / [place] [address] 25 of this 30 minute visit in face to face discussion regarding disease, prognosis and treatment documented in this encounter Plan of Treatment Upcoming Encounters Date Type Department Care Team (Late st Contact Info) Description 04/28/2024 11:00 AM EST Appoint[place] [address] Molly Cui APRN [facility] [place] [address] 04/28/2024 2:00 PM EST Office [place] [address] Molly Cui APRN [facility] [place] [address] Scheduled Orders Name Type Priority Associated Diagnoses [...] disease documented in this encounter Care Teams Workers Compensation Claims Analyst Relationship Specialty Start Date End Date Salome Mcarthur APRN [address] [place] [address] PCP - General Family Medicine 05/30/15 12/11/23 documented as of this encounter
--- OUTSIDE RECORDS SUMMARY | 2024-04-16 15:43 | XMS_ITS | Encounter Summary ---
Author Organization [facility] [place] [address] Care Team Providers Care Slots Manager Name Role Phone Salome Mcarthur APRN Primary Care Provider [phone] Reason for Visit * Reason Comments Follow-up Encounter Details Date Type Department Care Team (Late st Contact Info) Description 08/21/2016 3:30 PM EDT Office [place] [address] Molly Wallis SCRATCH FINISHER [facility] [place] [address] NAFLD (nonalcoholic fatty liver disease) Social History [...] HEPATOLOGY Follow up Visit Milka Mendieta 1940 MANAGER MORTGAGE: MOLLY WALLIS APRN PCP: Salome Mcarthur APRN [...] mouth every 4 hours as needed. ??? [place]-3 Fatty Acids-Vitamin E (FISH OIL) 1,000 mg [...] Wallis APRN Section of Gastroenterology [place] [address] Copy: Salome Mcarthur APRN [address] [facility]] / [place] [address] 15 of this 30 minute visit in face to face discussion regarding disease, prognosis and treatment documented in this encounter Plan of Treatment Upcoming Encounters Date Type Department Care Team (Late st Contact Info) Description 04/28/2024 11:00 AM EST [place] [address] Molly Wallis APRN [facility] [place] [address] 04/28/2024 2:00 PM EST Office [place] [address] Molly Wallis SCRATCH FINISHER [facility] [place] [address] Scheduled Orders Name Type Priority Associated Diagnoses [...] 10:44 am) PATIENT INFO: ID #: ? [id number] ?: [birth year] (76 yrs) Name: ? MILKA MENDIETA ?Visit Date: 02/22/2017 10:24 am PERFORMED BY: Performed By: ? Macario GEORGEWI, ??Debbi Attending: ?Betty GALLO, Marilee Ragsdale Referred By: ?MOLLY WALLIS Secondary Phy.: ?? MOLLY WALLIS SCRATCH FINISHER Location: ? [place] SERVICE(S) PROVIDED: ??UABDLIM - Abdominal Limited Survey Single ? [id number] ??Organ or Quadrant - [id number] INDICATIONS: ??Compensated cirrhosis, assess for HCC COMPARISON: [...] 02/22/2017 10:44 am) PATIENT INFO: ID #: [id number] : [birth year] (76 yrs) Name: MILKA MENDIETA Visit Date: 02/22/2017 10:24 am PERFORMED BY: Performed By: Debbi Sorto RDMS Attending: Marilee Hernández MD Referred By: MOLLY WALLIS [facility] Phy.: MOLLY WALLIS APRN Location: [place] SERVICE(S) PROVIDED: UABDLIM - Abdominal Limited Survey Single 38560 Organ or Quadrant - [id number] INDICATIONS: Compensated cirrhosis, assess for HCC COMPARISON: [...] Report 02/22/2017 10:44 am Molly Wallis APRN [facility] GEN ORDERAB LES documented in this encounter Visit Diagnoses Diagnosis NAFLD (nonalcoholic fatty liver disease) Other chronic nonalcoholic liver disease NAFLD (nonalcoholic fatty liver disease) Other chronic nonalcoholic liver disease documented in this encounter Care Teams Slots Manager Relationship Specialty Start Date End Date Salome Mcarthur APRN [address] [address] PCP - General Family Medicine 05/30/15 12/11/23 documented as of this encounter
--- OUTSIDE RECORDS SUMMARY | 2024-04-16 15:43 | XMS_ITS | Encounter Summary ---
Author Organization [facility] [place] [address] Care Team Providers Care Configuration Management Advisor Name Role Phone Salome Mcarthur APRN Primary Care Provider [phone] Encounter Details Date Type Department Care Team (Latest Contact Info) Description 08/21/2016 12:55 PM EDT Laboratory Appointment Lab [address] [place] [address] NAFLD (nonalcoholic fatty liver disease) [...] 04/28/2024 11:00 AM EST [place] [address] Molly Cui [facility] [place] [address] 04/28/2024 2:00 PM EST Office [place] [address] Molly Cui [facility] [place] [address] documented as of this encounter Procedures Procedure [...] 1:10 PM EDT) Neutrophil % 50.3 % [facility] Neutrophil Absolute 4.49 1.70 - 6.10 x10(3)/mc L [facility] Lymph % 39.2 % [facility] Lymphocytes Abs 3.5(H) 0.9 - 3.2 x10(3)/mc L [facility] Monocyte % 8.0 % [facility] Monocyte Abs 0.7 0.3 - 0.9 x10(3)/mc L [facility] Eos % 1.5 % [facility] Eosinophils Abs 0.1 0.0 - 0.4 x10(3)/mc L [facility] Basophil % 0.8 % [facility] Baso Absolute 0.1 0.0 - 0.1 x10(3)/mc L [facility] Immature Gran % 0.20 % [facility] Comment: Immature granulocytes(IG's)percentage and absolute count will include metamyelocytes, myelocytes, and promyelocytes. Blood smears from CBCs yielding IG's will be scanned manually for concordance. If this scan disagrees with the automated IG or if promyelocytes are noted, a manual differential will be performed. Immature Gran Absolute 0.02 0.00 - 0.04 x10(3)/mc L [facility] Blood specimen (specimen) 08/21/2016 1:10 PM EDT 08/21/2016 1:25 PM EDT Narrative Resulting Agency Comment Spec In Lab Beti Laureano MD HEMATOLOGY ORDERABLE S [facility] [place] [address] * Hemogram (08/21/2016 1:10 PM EDT) White Blood Cell 8.9 4.0 - 9.5 x10(3)/[facility] Red Blood Cell 4.85 4.00 - 5.21 x10(6)/[facility] Hemoglobin 15.2 11.7 - 15.5 gm/dL [facility] Hematocrit 43.8 35.7 - 45.8 % [facility] Mean Cell Volume 90.3 82.6 - 94.4 fL [facility] Mean Cell Hemoglobin 31.3 27.1 - 32.0 pg [facility] Mean Cell Hemoglobin Concentration 34.7 31.7 - 35.0 gm/dL [facility] Platelet 162 145 - 357 x10(3)/[facility] RDW Standard Deviation 40.9 37.0 - 46.0 [facility] RDW coefficient of variation 12.5 11.5 - 14.1 % [facility] Mean Platelet Volume 11.6 7.6 - 12.9 [facility] NRBC% auto 0.0 % [facility] NRBC Absolute 0.000 0.000 - 0.000 x10(3)/[facility] Blood specimen (specimen) 08/21/2016 1:10 PM EDT 08/21/2016 1:25 PM EDT Narrative Resulting Agency Comment Spec In Lab Beti Laureano MD HEMATOLOGY ORDERABLE S Performing Organization Address [facility] Co de Phone Number [facility] [place] [address] * Prothrombin Time (08/21/2016 1:10 PM EDT) Prothrombin Time 13.5 12.0 - 15.0 sec [facility] Comment: An INR <2.0 indicates [...] International Normalization Ratio 1.0 0.9 - 1.1 [facility] Blood specimen (specimen) 08/21/2016 1:10 PM EDT 08/21/2016 1:25 PM EDT Narrative Resulting Agency Comment Spec In Lab Beti Laureano MD HEMATOLOGY ORDERABLE S Performing Organization Address [facility] Co de Phone Number [facility] [place] [address] * (ABNORMAL) Comprehensive metabolic panel (non-fasting) (08/21/2016 1:10 PM EDT) Pathologist [facility] Glucose 167 65 - 199 mg/dL [facility] Comment:Diabetes: >=200 mg/d L plus symptoms Blood Urea Nitrogen 18 8 - 18 mg/dL [facility] Creatinine 0.71 0.70 - 1.20 mg/dL [facility] Comment: Please note that the pediatric reference intervals supplied above were not validated at [facility]. Results from pediatric patients should be interpreted in conjunction to the patient's age, height and muscle mass. Sodium 139 135 - 145 mmol/L [facility] Potassium 4.4 3.5 - 5.0 mmol/L [facility] Comment: Please note: ??Patients with WBC >100,000 may have falsely elevated Potassium levels. ??For accurate Potassium quantification in these patients send serum separator tube (gold top) for subsequent determinations. ??Contact the Clinical Chemistry Laboratory if there are any questions. Chloride 95(L) 98 - 107 mmol/L [facility] Carbon Dioxide 28 22 - 31 mmol/L [facility] Anion Gap 16(H) 5 - 15 mmol/L [facility] Calcium 10.7(H) 8.5 - 10.5 mg/dL [facility] Protein, Total 7.7 6.1 - 8.0 gm/dL [facility] Albumin 5.0 3.2 - 5.2 gm/dL [facility] Aspartate Aminotransferase 32(H) 0 - 30 unit/L [facility] Alanine Aminotransferase 38(H) 0 - 30 unit/L [facility] Alkaline Phosphatase 60 40 - 104 unit/L [facility] Bilirubin, Total 0.7 0.2 - 1.3 mg/dL [facility] Bilirubin, Direct 0.2 0.0 - 0.3 mg/dL [facility] Est Glomerular Filtration Rate >60 >=60 [facility] Comment: This estimated GFR (eGFR) [...] the following links into your internet browser. [email or web address] Blood specimen (specimen) 08/21/2016 1:10 PM EDT 08/21/2016 1:25 PM EDT Narrative Resulting Agency Comment Spec In Lab Beti Laureano MD CHEMISTRY ORDERABLES [facility] [place] [address] documented in this encounter Visit Diagnoses Diagnosis NAFLD (nonalcoholic fatty liver disease) Other chronic nonalcoholic liver disease documented in this encounter Care Teams Configuration Management Advisor Relationship Specialty Start Date End Date Salome Mcarthur APRN [address] [place] [address] PCP - General Family Medicine 05/30/15 12/11/23 documented as of this encounter
--- OUTSIDE RECORDS SUMMARY | 2024-04-16 15:43 | XMS_ITS | Encounter Summary ---
Author Organization [facility] Address [facility] [place] [address] Care Team Providers Care Health And Safety Advisor Name Role Phone Lizbet Galindo APRN Primary Care Provider + Encounter Details Date Type Department Care Team (Late st Contact Info) Description 10/22/2012 1:45 PM EDT [place] [phone] Sandra Beltrán MD [facility] [place] [address] Mixed incontinence (Primary Dx) Discharge Disposition: Home [...] minimal at night. 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 HPI [...] 04/28/2024 11:00 AM [place] [address] Molly Cui [facility] [place] [address] 04/28/2024 2:00 PM EST Office [place] [address] Molly Cui [facility] [place] [address] documented as of this encounter Visit Diagnoses Diagnosis Mixed incontinence- Primary Mixed incontinence urge and stress (male)(female) documented in this encounter Care Teams Health And Safety Advisor Relationship Specialty Start Date End Date Lizbet Galindo APRN PCP - General 06/30/12 05/29/15 documented as of this encounter
--- OUTSIDE RECORDS SUMMARY | 2024-04-16 15:44 | XMS_ITS | Encounter Summary ---
Author Organization [facility] Address [address] [place] [address] Care Team Providers Care Milieu Manager Name Role Phone Lizbet Zhang Primary Care Provider [phone] Encounter Details Date Type Department Care Team (Late st Contact Info) Description 01/15/2018 Historical Results Only [facility] Radiology Results [address] [place], [place] [id number] Ella Castle MD [address] [place] [phone] Social History Tobacco Use Types Packs/Day [...] on filedocumented in this encounter Care Teams Milieu Manager Relationship Specialty Start Date End Date Lizbet Zhang, SURVEY CREW CHIEF [address] [place] [address] PCP - General 02/24/13 03/13/20 documented as of this encounter
--- OUTSIDE RECORDS SUMMARY | 2024-04-16 15:44 | XMS_ITS | Encounter Summary ---
Author Organization [facility] Address [address] [place] [address] Care Team Providers Care Dumpster Driver Name Role Phone Salome Mcarthur CLINICAL APPEALS REVIEWER Primary Care Provider [phone] Reason for Visit * Reason Comments Wound Check Encounter Details Date Type Department Care Team (Late st Contact Info) Description 03/22/2020 10:45 EST Nurse Only [facility] [address] [facility], [place] [address] Nurse, [facility] Encounter for post surgical wound check [...] fibrin Drainage: scant serosanguineous Graft site: N/A [place] site: N/A Flap site: N/A PLAN: Wound [...] Primary documented in this encounter Care Teams Dumpster Driver Relationship Specialty Start Date End Date Salome Mcarthur NP [address] [place] [address] PCP - General 03/14/20 documented as of this encounter
--- OUTSIDE RECORDS SUMMARY | 2024-04-16 15:44 | XMS_ITS | Encounter Summary ---
Author Organization [facility] Address [address] [place] [address] Care Team Providers Care Engine Cowling Installer Name Role Phone LeathaLizbet ROLLER DIE CUTTING MACHINE OPERATOR Primary Care Provider [phone] Encounter Details Date Type Department Care Team (Late st Contact Info) Description 10/17/2017 Historical Results Only [facility] Radiology Results [address] [place] [address] Molly Cui, LORETO [address] [place] [address] [place] [address] Social History Tobacco Use Types Packs/Day Years [...] NODULE NOTED ON ? MRI 09/21/17 @ [facility]. NO HX OF SMOKING ? CHEST WITH CONTRAST ??10/17/2017 11:41 AM ? Clinical History/Comments: ? R91.1 INCIDENTAL NOTE OF LUNG NODULE NOTED ON, MRI 09/21/17 @ [facility]. NO ? HX OF SMOKING [...] CC: ? Transcribed Date/Time: 10/17/2017 (1419) ? Assembler Piano: ? Printed Date/Time: 09/26/2018 (3946) ? PAGE 2 ? Signed Report ? Procedure Note Carl Ortega MD - 02/12/2019 EXAM: CAT SCAN/CHEST WITH CONTRAST EX. D/ (1141) CLINICAL INFORMATION: R91.1 INCIDENTAL NOTE OF LUNG NODULE NOTED ON MRI 09/21/17 @ [facility]. NO HX OF SMOKING CHEST WITH CONTRAST 10/17/2017 11:41 AM Clinical History/Comments: R91.1 INCIDENTAL NOTE OF LUNG NODULE NOTED ON, MRI 09/21/17 @ [facility].NO HX OF SMOKING Technique: Contiguous [...] Carl Ortega MD CC: Transcribed Date/Time: 10/17/2017 (2372) Assembler Piano: Printed Date/Time: 09/26/2018 (3590) PAGE 2 Signed Report us Molly Cui COLOR ARTIST IMG CT ORDERABLES Final Re sult * (ABNORMAL) COMPLETE BLOOD COUNT WITH DIFFERENTIAL (AUTO) (10/17/2017 10:37 EDT) ABSOLUTE NEUTROPHIL COUN - [facility] 3.14 1.7 - 7.0 10e3/ul 10/17/2017 11:09 [facility] BASO # - [facility] 0.02 0.0 - 0.3 10e3/uL 10/17/2017 11:09 [facility] BASO % - [facility] 0 0 - 2 % 10/17/2017 11:09 [facility] EOS # - [facility] 0.11 0.05 - 0.5 10e3/uL 10/17/2017 11:09 [facility] EOS % - [facility] 2 0 - 5 % 10/17/2017 11:09 [facility] GRAN % - [facility] 54 40 - 80 % 10/17/2017 11:09 [facility] HEMATOCRIT - [facility] 41.7 34.0 - 47.0 % 10/17/2017 11:09 [facility] HEMOGLOBIN - [facility] 14.3 11.2 - 15.7 g/dl 10/17/2017 11:09 [facility] IG# - [facility] 0.02 0 - 0.07 e3/uL 10/17/2017 11:09 [facility] IG% - [facility] 0.3 0 - 0.9 % 10/17/2017 11:09 [facility] LYMPH # - [facility] 2.14 0.9 - 2.9 10e3/uL 10/17/2017 11:09 [facility] LYMPH% - [facility] 37 20 - 40 % 10/17/2017 11:09 [facility] MEAN CORPUSCULAR HGB - [facility] 31.4 26 - 34 pg 10/17/2017 11:09 [facility] MEAN CORPUSCULAR HGB CONC - [facility] 34.3 31 - 36 g/dL 10/17[facility]2017 [facility] CELL VOLUME - [facility] 91.4 77 - 100 fl 10/17/2017 11:09 [facility] MONO # - [facility] 0.41 0.3 - 0.9 10e3/uL 10/17/2017 [facility] MONO% - [facility] 7 0 - 12 % 10/17/2017 11:09 [facility] PLATELET COUNT 118(L) 150 - 400 10e3/ul 10/17/2017 11:56 [facility] RED BLOOD COUNT - [facility] 4.56 3.8 - 5.2 10e6/ul 10/17/2017 11:09 [facility] RED CELL DISTRI WIDTH - [facility] 12.5 11.8 - 15.6 % 10/17/2017 11:09 [facility] WHITE BLOOD COUNT - [facility] 5.8 3.5 - 10.5 10e3/ul 10/17/2017 11:09 [facility] 10/17/2017 10:3 7 EDT 10/17/2017 10:[address] [facility] - 10/17/2017 11:56 EDT Does PT Have a Latex Allergy? YES us Molly Cui APRN HEMATOLOGY & PF4 ORDERABLE S Final Result [facility] * AFP TUMOR MARKER (10/17/2017 10:37 EDT) ALPHA-FETOPROTEIN TUMOR MARKER - [facility] 3.0 <8.1 ng/mL [facility]2017 [facility] Comment: AFP tumor marker cannot be interpreted in females. ?? Serum AFP concentration should not be interpreted as absolute evidence for the presence or absence of malignant disease. ?? Assayed utilizing Siemens chemiluminescent technology. Values obtained by using different assay methods cannot be used interchangeably. Test Performed by: THE [address] [address] 10/17/2017 10:3 7 EDT 10/17/2017 10:[address] [facility] - 10/18/2017 14:30 EDT Instructions? FAX ATTENTION: VARSHA LAZO NUMBER: [phone] TEST TO BE FAXED?: ALL Does PT Have a Latex Allergy? YES Results faxed on 10/18/17 [phone] by [facility] us Molly Cui APRN CHEMISTRY & BLOOD GAS ORDE LAYLA Final Result [facility] * (ABNORMAL) COMPREHENSIVE METABOLIC PANEL (CMP) (10/17/2017 10:36 EDT) Albumin % 4.3 3.4 - 4.9 g/dL 10/17/2017 11:07 [facility] ALKALINE PHOSPHATASE - [facility] 79 38 - 126 U/L 10/17/2017 11:07 [facility] BILIRUBIN TOTAL 0.6 0.2 - 1.3 mg/dL 10/17/2017 11:07 [facility] BUN - [facility] 15 10 - 26 mg/dL 10/17/2017 11:07 [facility] CALCIUM - [facility] 10.5 8.5 - 10.5 mg/dL 10/17/2017 11:07 [facility] Chloride 99 96 - 110 mmol/L 10/17/2017 11:07 [facility] CO2 Total 27 22 - 32 mEq/L 10/17/2017 11:07 [facility] CREATININE 0.58 0.52 - 1.04 mg/dL 10/17/2017 11:07 [facility] eGFR >60 10/17/2017 11:07 [facility] Comment: Chronic renal impairment is defined as GFR <60 Multiply result by 1.210 for patients. eGFR calculated using the IDMS-traceable MDRD Study Equation. ??(effective 02/08/2014) Anion Gap 14 0 - 18 10/17/2017 11:07 [facility] GLUCOSE - [facility] 184(H) 70 - 100 mg/dL 10/17/2017 [facility] Potassium 4.1 3.5 - 5.0 mEq/L 10/17/2017 11:07 [facility] Sodium 140 136 - 145 mEq/L 10/17/2017 11:[address] [facility] TOTAL PROTEIN - [facility] 7.4 6.2 - 8.2 gm/dL 10/17/2017 11:07 [facility] SGOT/AST - [facility] 32 14 - 36 U/L 10/17/2017 11:07 [facility] SGPT/ALT - [facility] 51 9 - 52 U/L 8 11:07 [facility] 10/17/2017 10:3 6 EDT 10/17/2017 10:36 EDT [facility] - 10/17/2017 11:07 EDT Does PT Have a Latex Allergy? YES us Molly Cui APRN CHEMISTRY & BLOOD GAS ORDE RABLES Final Result [facility] * PROTIME (10/17/2017 10:36 EDT) [facility] PROTHROMBIN TIME - [facility] 10.7 9.5 - 13.4 SECONDS [facility]2017 [facility] 10/17/2017 10:3 6 EDT 10/17/2017 10:36 EDT [facility] - 10/03/2018 8:42 EDT Does PT Have a Latex Allergy? YES us Molly Cui APRN HEMATOLOGY & PF4 ORDERABLE S Final Result [facility] * PROTIME (10/17/2017 10:36 EDT) [facility] INR [facility] 1.0 0.9 - 1.2 10/17/2017 11:[address] [facility] Comment: Low intensity INR: 2.0-3.0 High intensity INR: Consult Coag Dept. 10/17/2017 10:3 6 EDT 10/17/2017 10:[address] [facility] - 10/03/2018 8:42 EDT Does PT Have a Latex Allergy? YES us Molly Cui COLOR ARTIST HEMATOLOGY & PF4 ORDERABLE S Final Result [facility] documented in this encounter Visit Diagnoses Not on filedocumented in this encounter Care Teams Engine Cowling Installer Relationship Specialty Start Date End Date Lizbet Zhang FNP [address] [place] [address] PCP - General 02/24/13 03/13/20 documented as of this encounter
--- OUTSIDE RECORDS SUMMARY | 2024-04-16 15:44 | XMS_ITS | Encounter Summary ---
Author Organization [facility] Address [address] [place] [address] Care Team Providers Care Global Implementation Manager Name Role Phone Salome Mcarthur PROMOTIONS INTERN Primary Care Provider [phone] Reason for Visit * Reason Comments Rash Encounter Details Date Type Department Care Team (Late st Contact Info) Description 11/03/2023 9:30 EDT Walk-In [address] [id number] Jess Ferguson NP [address] [facility] [address] [place] [address] Intertrigo (Primary Dx) Social History [...] relief. * Jess Ferguson NP - 11/03/2023 9135 EDT [facility] Chief Complaint(s): Chief Complaint Patient [...] by mouth 2 times daily. 08/09/2023 lancets (EZ2CADTOUCH DELICA PLUS LANCET) 30 gauge misc USE 1 LANCET THREE TIMES A DAY DIRECTED blood glucose meter (EZ2CADTOUCH ULTRA2 METER) Use 1 unit as directed [...] syndrome. added in this encounter Care Teams Global Implementation Manager Relationship Specialty Start Date End Date Salome Mcarthur NP [address] [place] [address] PCP - General 03/14/20 documented as of this encounter
--- OUTSIDE RECORDS SUMMARY | 2024-04-16 15:44 | XMS_ITS | Referral Summary ---
Author Organization [facility] Address [address] [place] [address] Care Team Providers Care Public Records Researcher Name Role Phone Salome Mcarthur BUSINESS TEST ANALYST Primary Care Provider [phone] Encounters Date Type Department Care Team Description 02/02/2024 12:30 EDT Walk-In [facility] [address] [place], [place] [phone] Tristan Santa, JEIMY Acute cough (Primary Dx) [...] Additional Information Patient not taking.Reported on 03/16/2020 [place]-3 Fatty Acids-Vitamin E (FISH OIL) 1,000 mg [...] incontinence 05/18/2011 Hypertensive disorder 03/09/2009 Diabetes mellitus ([facility]) 03/09/2009 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
--- OUTSIDE RECORDS SUMMARY | 2024-04-16 15:44 | XMS_ITS | Encounter Summary ---
Author Organization [facility] Address [address] [place] [address] Care Team Providers Care Cigarette Filter Inspector Name Role Phone Salome Mcarthur PATTERN RULER Primary Care Provider [phone] Encounter Details Date Type Department Care Team (Late st Contact Info) Description 10/17/2023 Documentation Visit [facility] - [address] [address] Kal Clark, PT [address] [place], [place] [id number] Social History Tobacco Use Types Packs/Day Years [...] EDT [facility] [phone] Physical Therapy Discharge Not Seen Recently Medical [...] on filedocumented in this encounter Care Teams Cigarette Filter Inspector Relationship Specialty Start Date End Date Salome Mcarthur NP [address] [place] [address] PCP - General 03/14/20 documented as of this encounter
--- OUTSIDE RECORDS SUMMARY | 2024-04-16 15:44 | XMS_ITS | Clinical Summary ---
Author Organization [facility] Address [address] [place] [address] Care Team Providers Care Perinatal Technician Name Role Phone Salome Mcarthur LEGAL INTERNSHIP Primary Care Provider [phone] Allergies Active Allergy Reactions Criticality Noted Date [...] Additional Information Patient not taking.Reported on 03/16/2020 [place]-3 Fatty Acids-Vitamin E (FISH OIL) 1,000 mg [...] Hypertensive disorder 03/09/2009 Diabetes mellitus (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 Overview (03/09/2009): H/o - cxr IBS (irritable bowel syndrome) 03/09/2009 Hyperlipidemia 03/09/2009 Rosacea 03/09/2009 Restless legs syndrome 03/09/2009 Migraine 03/09/2009 Encounters Date Type Department Care Team Description 02/02/2024 12:30 EDT Walk-In [facility] [address] [facility] [place] [address] Tristan Santa, JEIMY Acute cough (Primary Dx) [...] 01/09/2024, , 09/19/2022, Additional history exists Insurance [facility] MEDICARE Advance Directives For more information, please contact: [phone] * Full Code (Latest Code Status on File) Date Activated Date Inactivated Comments 08/21/2011 16:46 08/22/2011 17:10 Care Teams Perinatal Technician Relationship Specialty Start Date End Date Salome Mcarthur, JEIMY [address] [place] [address] PCP - General 03/14/20
--- OUTSIDE RECORDS SUMMARY | 2024-04-16 15:44 | XMS_ITS | Encounter Summary ---
Author Organization [facility] Address [address] [place] [address] Care Team Providers Care Machine Tender Name Role Phone Lizbet Zhang Zoey GUINEA PIG BREEDER Primary Care Provider [phone] Encounter Details Date Type Department Care Team (Late st Contact Info) Description 12/15/2015 Results Only [facility] [phone] Sandra Ricci MD [address] [place] [phone] Social History Tobacco Use Types Packs/Day [...] ? MILKA MENDIETA ? Accession #: ? [id number] : ? 1940 (Age: 75) ??F ?Collect Date: ? 12/15/2015 Location: ? [facility] ? Receive Date: ? 12/16/2015 Provider: ? SANDRA RICCI MD Copy to: ?KRISTEN LOPEZ GENERAL ADMINISTRATOR ? CYTOLOGIC DIAGNOSIS: URINE, CATHETERIZATION, CYTOLOGIC EVALUATION: [...] cellular enhancement technique. ? End of Report [facility] 12/15/2015 12/16/2015 7:5 5 EDT us Sandra Ricci MD PATHOLOGY ORDERABLES Final Result [facility] [address] [place] [address] documented in this encounter Visit Diagnoses Not on filedocumented in this encounter Care Teams Machine Tender Relationship Specialty Start Date End Date Lizbet Zhang FNP [address] [place] [address] PCP - General 02/24/13 03/13/20 documented as of this encounter
--- OUTSIDE RECORDS SUMMARY | 2024-04-16 15:44 | XMS_ITS | Encounter Summary ---
Author Organization [facility] Address [address] [place] [address] Care Team Providers Care Citrix Consultant Name Role Phone LeathaLizbet HEALTH OUTREACH WORKER Primary Care Provider [phone] Encounter Details Date Type Department Care Team (Latest Contact Info) Description 05/04/2013 17:05 EST - 05/04/2013 23:[address] [facility] [address] [place] [address] Unknown, Provider, MD Discharge Disposition: Home or [...] 1 Tab by mouth daily before breakfast. [place]-3 Fatty Acids-Vitamin E (FISH OIL) 1,000 mg [...] Code Departure Means Destination Home or Self Halfway documented in this encounter Plan of Treatment Not on file documented as of this encounter Visit Diagnoses Not on filedocumented in this encounter Care Teams Citrix Consultant Relationship Specialty Start Date End Date Lizbet Zhang FNP [address] [place] [address] PCP - General 02/24/13 03/13/20 documented as of this encounter
--- OUTSIDE RECORDS SUMMARY | 2024-04-16 15:44 | XMS_ITS | Encounter Summary ---
Author Organization [facility] Address [address] [place] [address] Care Team Providers Care Transliterator Name Role Phone Agustin Ramires MD Primary Care Provider [phone] Reason for Visit * Reason Onset Date Comments Fever 08/27/2011 Encounter Details Date Type Department Care Team (Late st Contact Info) Description 08/27/2011 Telephone [facility] Pelvic Medicine and Reconstructive Surgery - Medical Office [facility] [address] [place] [address] Tim Molina MD [address] [place] [phone] Fever Social History Tobacco Use Types [...] Date Author Yes 08/21/2011 16:30 KENNETHT Sophia Lopez RN documented in this encounter Ordered Prescriptions [...] on filedocumented in this encounter Care Teams Transliterator Relationship Specialty Start Date End Date Agustin Ramires MD [address],[facility] [address] [place] [phone] PCP - General 08/20/11 02/23/13 documented as of this encounter
--- OUTSIDE RECORDS SUMMARY | 2024-04-16 15:44 | XMS_ITS | Encounter Summary ---
Author Organization [facility] Address [address] [place] [address] Care Team Providers Care Doughnut Machine Operator Name Role Phone Salome Mcarthur AUTO BODY STRAIGHTENER Primary Care Provider [phone] Encounter Details Date Type Department Care Team (Late st Contact Info) Description 01/17/[address] [facility] Pathology & Laboratory Medicine - [facility] [address] [place], [place] [phone] Outr Resulting Lab, Provider Social History Tobacco [...] 211 - 911 pg/mL 01/17/2021 21:53 EDT [facility] Blood VENOUS BLOOD / Unknown 01/17/2021 12:56 EDT 01/17/2021 21:02 EDT us Provider Outr Resulting Lab CHEMISTRY & BLOOD GA S ORDERABLES Final Result [facility] [address] [place] [address] documented in this encounter Visit Diagnoses Not on filedocumented in this encounter Care Teams Doughnut Machine Operator Relationship Specialty Start Date End Date Salome Mcarthur, AUTO BODY STRAIGHTENER [address] [place] [address] PCP - General 03/14/20 documented as of this encounter
--- OUTSIDE RECORDS SUMMARY | 2024-04-16 15:44 | XMS_ITS | Encounter Summary ---
Author Organization [facility] Address [address] [place] [address] Care Team Providers Care Broiler Chef Or Cook Name Role Phone Salome Mcarthur JV BASEBALL COACH Primary Care Provider Encounter Details Date Type Department Care Team (Late st Contact Info) Description 10/25/2021 Documentation Visit [facility] - [address] [phone] Kal Clark, PT [address] [place], [place] [phone] Social History Tobacco Use Types Packs/Day Years [...] Clark, PT - 10/25/2021 1701 EDT [facility] Outpatient Rehabilitation Services [phone] Physical Therapy Discharge Not Seen Recently Medical [...] on filedocumented in this encounter Care Teams Broiler Chef Or Cook Relationship Specialty Start Date End Date Salome Mcarthur NP [address] [place] [address] PCP - General 03/14/20 documented as of this encounter
--- OUTSIDE RECORDS SUMMARY | 2024-04-16 15:44 | XMS_ITS | Encounter Summary ---
Author Organization [facility] Address [address] [place] [address] Care Team Providers Care Gis Analyst Name Role Phone LeathaLizbet CLINICAL INFORMATICS DIRECTOR Primary Care Provider [phone] Encounter Details Date Type Department Care Team (Latest Contact Info) Description 12/15/2015 9:36 EDT - 12/15/2015 23:59 EDT Hospital Encounter [address] [address] Unknown, Provider, MD Discharge Disposition: Home or [...] 1 Tab by mouth daily before breakfast. Gilbert-3 Fatty Acids-Vitamin E (FISH OIL) 1,000 mg [...] Code Departure Means Destination Home or Self Fdc documented in this encounter Plan of Treatment Not on file documented as of this encounter Visit Diagnoses Not on filedocumented in this encounter Care Teams Gis Analyst Relationship Specialty Start Date End Date Lizbet Zhang FNP [facility] [place] [address] PCP - General 02/24/13 03/13/20 documented as of this encounter
--- OUTSIDE RECORDS SUMMARY | 2024-04-16 15:44 | XMS_ITS | Encounter Summary ---
Author Organization [facility] Address [address] [place] [address] Care Team Providers Care Petrology Teacher Name Role Phone Agustin Ramires MD Primary Care Provider [phone] Reason for Visit * Reason Comments Wound Infection Wound check Encounter Details Date Type Department Care Team (Late st Contact Info) Description 08/31/2011 13:30 EDT Nurse Only [facility] Pelvic Medicine and Reconstructive Surgery - Medical Office [facility] [address] [place] [address] Unknown, Provider, Tim Martínez MD [address] [place] [phone] Nurse, [facility] Pelvic Med Social History Tobacco Use [...] documented as of this encounter Care Teams Petrology Teacher Relationship Specialty Start Date End Date Agustin Ramires MD [facility] [address],[facility] [address] [place] [phone] PCP - General 08/20/11 02/23/13 documented as of this encounter
--- OUTSIDE RECORDS SUMMARY | 2024-04-16 15:44 | XMS_ITS | Encounter Summary ---
Author Organization [facility] Address [address] [place] [address] Care Team Providers Care Rn Cardiac Rehab Name Role Phone Salome Mcarthur MELTER SUPERVISOR OPEN HEARTH FURNACE Primary Care Provider [phone] Encounter Details Date Type Department Care Team (Late st Contact Info) Description 10/27/2020 Lab Requisition [facility] Pathology & Laboratory Medicine - [address] [phone] Outr Resulting Lab, Provider Social History Tobacco [...] Priority Date/Time Associated Diagnosis Comments ZZCOVID-19 TEST [facility] PCR Today 10/27/2020 10:45 EDT COVID-19 TESTING Routine 10/27/2020 10:4 5 EDT documented in this encounter Results * COVID-19 TEST [facility] PCR (10/27/2020 10:45 EDT) Swab ENTIRE NASOPHARYNX / Unknown 10/27/2020 10:45 EDT 10/28/2020 15:54 EDT us Provider Outr Resulting Lab MICROBIOLOGY - GENER AL ORDERABLES Final Result [facility] [address] [place] [address] * COVID-19 TESTING (10/27/2020 10:45 EDT) COVID-19 rt-PCR Result Negative Negative 10/29/2020 12:[address] [facility] Comment: This test has [...] performed using the damaso SARS-CoV-2 assay ([employer] on the Damaso 6800 System Performing Lab Damaso [address] [facility] 10/29/2020 12:[address] [facility] Swab 10/27/2020 10:4 5 EDT 10/28/2020 15:54 EDT us Provider Outr Resulting Lab MICROBIOLOGY - GENER AL ORDERABLES Final Result [facility] [address] [place] [address] documented in this encounter Visit Diagnoses Not on filedocumented in this encounter Care Teams Rn Cardiac Rehab Relationship Specialty Start Date End Date Salome Mcarthur, MELTER SUPERVISOR OPEN HEARTH FURNACE [address] [place] [address] PCP - General 03/14/20 documented as of this encounter
--- OUTSIDE RECORDS SUMMARY | 2024-04-16 15:44 | XMS_ITS | Encounter Summary ---
Author Organization [facility] Address [address] [place] [address] Care Team Providers Care Rice Drier Operator Name Role Phone Leatha Lizbet C RAILWAY PATROL OFFICER Primary Care Provider [phone] Encounter Details Date Type Department Care Team (Late st Contact Info) Description 01/16/2018 Historical Results Only [facility] Radiology Results [address] [place], [place] [phone] Ella Castle MD [address] [place] [phone] Social History Tobacco Use Types Packs/Day [...] noncritical result requiring ? follow-up on the [employer] PACS findings application, to be tracked by ? the [facility] tracking system. ? REPORT SIGNED IN OTHER VENDOR SYSTEM 01/16/2018 ?Reported By: Francis Bustamante MD ? CC: LANI WALLIS ? Transcribed Date/Time: 01/16/2018 (1706) ? Enterprise Integration Architect: ? Printed Date/Time: 09/27/2018 (4536) ? PAGE 1 ? Signed Report ? [...] a noncritical result requiring follow-up on the [employer] PACS findings application, to be tracked by the [facility] tracking system. REPORT SIGNED IN OTHER VENDOR SYSTEM 01/16/2018 Reported By: Francis Bustamante MD CC: LANI WALLIS Transcribed Date/Time: 01/16/2018 (5609) Enterprise Integration Architect: Printed Date/Time: 09/27/2018 (7002) PAGE 1 Signed Report us Ella Castle MD IMG CT ORDERABLES Final R esult documented in this encounter Visit Diagnoses Not on filedocumented in this encounter Care Teams Rice Drier Operator Relationship Specialty Start Date End Date Lizbet Zhang FNP [address] [place] [address] PCP - General 02/24/13 03/13/20 documented as of this encounter
--- OUTSIDE RECORDS SUMMARY | 2024-04-16 15:44 | XMS_ITS | Encounter Summary ---
Author Organization [facility] Address [address] [place] [address] Care Team Providers Care Bathing Suit Maker Name Role Phone Salome Mcarthur LOGGING ENGINEER Primary Care Provider [phone] Reason for Visit * Reason Comments Cough Chest Congestion Chest Pain Shortness of Breath Encounter Details Date Type Department Care Team (Late st Contact Info) Description 02/02/2024 12:30 EDT Walk-In [facility] [address] [place] [id number] Tristan Santa, LOGGING ENGINEER [address] [facility] [address] [place] [address] Acute cough (Primary Dx) Social [...] be sent through Care Everywhere. * Cough (Azeri) documented in this encounter Ordered Prescriptions Prescription [...] Tristan Santa NP - 02/02/2024 1230 EDT [facility] Express Care Chief Complaint(s): Cough, Chest Congestion, [...] Cough Persistent from URI this past week [facility] Emile Pittman Other considered diagnosis include: Respiratory:URI/Sinus [...] 12/03/2023 added in this encounter Care Teams Bathing Suit Maker Relationship Specialty Start Date End Date Salome Mcarthur NP [address] [place] [address] PCP - General 03/14/20 documented as of this encounter
--- OUTSIDE RECORDS SUMMARY | 2024-04-16 15:44 | XMS_ITS | Encounter Summary ---
Author Organization [facility] Address [address] [place] [address] Care Team Providers Care Union Steward Name Role Phone Salome Mcarthur ACETYLENE PLANT OPERATOR Primary Care Provider Reason for Visit * Reason Comments New Patient Visit Spot of right calf t hat has been there for a few weeks that's getting bigger. No P/FHx of skin cancer Encounter Details Date Type Department Care Team (Late st Contact Info) Description 03/16/2020 11:00 EST Office Visit [facility] Dermatology [address] [facility], [place] [address] Brittanie Ponce MD [address] [facility] [address] [place] [address] Neoplasm of uncertain behavior of [...] pain should be mild. Take according to monorail operator directions. BLEEDING: You may notice some [...] PATIENT INFORMATION: Milka Corbett : MRN: [id number] SURGEON: Brittanie Ponce MD The indication, risks, [...] 03/16/2020 1100 EST Lidocaine Lot #[id number] EXP: [id number] documented in this encounter Miscellaneous Notes * [...] this encounter Results * ROUTINE CULTURE - [facility] (03/16/2020 11:45 EST) USUAL SKIN TRUNG - [facility] USF 03/19/2020 9:38 EST [facility] QUANT - [facility] MODERATE 03/19/2020 9:38 EST [facility] Lower limb structure (body structure) 03/16/2020 11:45 EST 03/17/2020 16:10 EST Comment:RL Daria [facility] - 03/19/2020 9:38 EST RIGHT LOWER LEG us Brittanie Ponce MD CHEMISTRY & BLOOD GAS ORDERABL ES Final Result Performing Organization Address [facility] Co de Phone Number [facility] [address] [place] [address] * GRAM SMEAR (03/16/2020 11:45 EST) GRAM STAIN - [facility] TWO SWABS RECEIVED FOR CULTURE AND GRAM STAIN 03/17/2020 19:43 [facility] BACTERIA SEEN - [facility] NO 03/17/2020 19:43 [facility] WBC NO 03/17/2020 19:43 [facility] Lower limb structure (body structure) 03/16/2020 11:45 EST 03/17/2020 16:10 EST Comment:RL Daria [facility] - 03/19/2020 9:38 EST RIGHT LOWER LEG us Brittanie Ponce MD MICROBIOLOGY - GENERAL ORDERAB LES Final Result Performing Organization Address City/[facility]/ZIP Co de Phone Number [facility] [address] [place] [address] * SURGICAL PATHOLOGY (03/16/2020 11:44 EST) Final Diagnosis A. SKIN OF LEG, RIGHT LOWER, SHAVE BIOPSY: - Seborrheic keratosis, irritated. 03/21/2020 16:17 [facility] Attestation By the signature below, the attending physician certifies that they have 1) personally conducted a gross and/or microscopic examination of the described specimen(s), and/or personally interpreted the results of laboratory testing of the described specimen(s), and 2) personally rendered or confirmed the above diagnosis. 03/21/2020 16:17 [facility] at 1617 Microscopic Description Sections consist of a shave biopsy of a papule. There is hyperkeratosis with focal parakeratosis. The papules formed by epidermal acanthosis with a focal endophytic growth pattern. The keratinocytes have reactive changes with hypergranulosis. Within the dermis, there is a patchy mixed infiltrate. Deeper sections have similar features. 03/21/2020 16:17 [facility] Clinical History Indurated tender pink papule with surrounding erythema: ?SCC vs BCC vs irritated SK vs LPLK vs other; clinical diagnosis code: D48.5 03/21/2020 16:17 [facility] Gross Description A. Received in formalin labelled with proper patient identification (initials C, S) and not otherwise specified is a shave biopsy of pale tillman to tillman-pink plaque like skin (1.1 x 0.8 x 0.1 cm). The margin is inked blue. Trisected and submitted in A1. Alexis Ponce 03/17/2020 10:16 03/21/2020 16:17 [facility] Performing Lab [facility] 03/21/2020 16:17 [facility] Scanned Images 03/21/2020 16:17 [facility] Tissue TISSUE SPECIMEN FROM SKIN / Unknown 03/16/2020 11:44 EST 03/17/2020 6:54 EST us Brittanie Ponce MD PATHOLOGY ORDERABLES Final Res ult [facility] [address] [place] [address] documented in this encounter Visit Diagnoses Diagnosis [...] documented as of this encounter Care Teams Union Steward Relationship Specialty Start Date End Date Salome Mcarthur, ACETYLENE PLANT OPERATOR [address] [place] [address] PCP - General 03/14/20 documented as of this encounter
--- OUTSIDE RECORDS SUMMARY | 2024-04-16 15:44 | XMS_ITS | Encounter Summary ---
Author Organization [facility] Address [address] [place] [address] Care Team Providers Care Mutual Funds Agent Name Role Phone Salome Mcarthur STOCK PARTS INSPECTOR Primary Care Provider [phone] Reason for Visit * Reason Comments Oral Pain Encounter Details Date Type Department Care Team (Late st Contact Info) Description 08/04/2023 15:30 EDT Walk-In [address] [address] Tristan Santa, JEIMY [address] [facility] [address] [place] [address] Thrush, oral (Primary Dx) Social [...] the past. I did send it to [facility] so if they do not have it they can call and we can order else where or send in a different script. Follow-up with dentist related to ill fitting partials as you do have some irritated mucosa lining your lower partial on the left side. * Attachments The following attachments cannot be sent through Care Everywhere. * Candidiasis (Belarusian) documented in this encounter Ordered Prescriptions Prescription [...] RN or in discussion with available provider (BLOOD BANK ORDER CONTROL CLERK's and CCA's can defer to Charge Nurse to complete triage when appropriate) PCP: Salome Mcarthur * Tristan Santa NP - 08/04/2023 1530 EDT Images from the original note were not included. [facility] Chief Complaint(s): Oral Pain Assessment [...] day 07/15/2023 d-mannose 500 mg capsule daily. [employer]ty[employer] ULTRA2 METER 02/07/2023 veriCAR ULTRA TEST test strips USE 1 STRIP VIA METER THREE TIMES A DAY DIRECTED 09/11/2022 atorvastatin (LIPITOR) 20 mg tablet TAKE 1 TABLET BY MOUTH AT NIGHT albuterol 90 mcg/actuation inhaler Inhale 2 puff using inhaler every four to six hours as needed added in this encounter Care Teams Mutual Funds Agent Relationship Specialty Start Date End Date Salome Mcarthur, STOCK PARTS INSPECTOR [address] [place] [address] PCP - General 03/14/20 documented as of this encounter
--- OUTSIDE RECORDS SUMMARY | 2024-04-16 15:44 | XMS_ITS | Encounter Summary ---
Author Organization [facility] Address [address] [place] [address] Care Team Providers Care Director Of Special Events Name Role Phone Salome Mcarthur BEHAVIORAL HEALTH CASE MANAGER Primary Care Provider [phone] Encounter Details Date Type Department Care Team (Latest Contact Info) Description 09/05/2023 Plan of Care Documentation [address] [id number] Social History Tobacco Use Types Packs/Day Years [...] for 4 weeks. Therapy Treatment to include: 65590 - Therapeutic Exercise, 08307 - Neuromuscular Re-education, 71488 - Canalith Repositioning, and 43962 - Therapeutic Activity Recommended Consults: None currently. [...] in this encounter Care Teams Director Of Special Events Relationship Specialty Start Date End Date Salome Mcarthur NP [address] [place] [address] PCP - General 03/14/20 documented as of this encounter
--- OUTSIDE RECORDS SUMMARY | 2024-04-16 15:44 | XMS_ITS | Encounter Summary ---
Author Organization [facility] Address [address] [place] [address] Care Team Providers Care Hat Sizer Name Role Phone LeathaLizbet SHOE PACKER Primary Care Provider [phone] Encounter Details Date Type Department Care Team (Latest Contact Info) Description 01/15/2018 15:25 EDT - 01/15/2018 23:59 EDT Hospital Encounter [facility] [address] [place] [address] Unknown, Provider, MD Discharge Disposition: Home or [...] 1 Tab by mouth daily before breakfast. [place]-3 Fatty Acids-Vitamin E (FISH OIL) 1,000 mg [...] Code Departure Means Destination Home or Self Shelter documented in this encounter Plan of Treatment Not on file documented as of this encounter Visit Diagnoses Not on filedocumented in this encounter Care Teams Hat Sizer Relationship Specialty Start Date End Date Lizbet hZang FNP [address] [place] [address] PCP - General 02/24/13 03/13/20 documented as of this encounter
--- OUTSIDE RECORDS SUMMARY | 2024-04-16 15:44 | XMS_ITS | Encounter Summary ---
Author Organization [facility] Address [address] [place] [address] Care Team Providers Care Machinist Name Role Phone Salome Mcarthur BANBURY MILL OPERATOR Primary Care Provider [phone] Reason for Visit * Reason Onset Date Comments Appointment Related 02/21/2021 Encounter Details Date Type Department Care Team (Late st Contact Info) Description 02/21/2021 Telephone [facility] - [facility] Rehab Services [address] [place], [place] [phone] Mallory Gallagher, PT [address] [place] [address] Appointment Related Social History Tobacco [...] on filedocumented in this encounter Care Teams Machinist Relationship Specialty Start Date End Date Salome Mcarthur, BANBURY MILL OPERATOR [address] [place] [address] PCP - General 03/14/20 documented as of this encounter
--- OUTSIDE RECORDS SUMMARY | 2024-04-16 15:44 | XMS_ITS | Encounter Summary ---
Author Organization [facility] Address [address] [place] [address] Care Team Providers Care Mechanical Service Representative Name Role Phone Salome Mcarthur PEST CONTROL SPECIALIST Primary Care Provider [phone] Encounter Details Date Type Department Care Team (Latest Contact Info) Description 01/19/2022 Plan of Care Documentation [address] [phone] Social History Tobacco Use Types Packs/Day Years [...] to 3 visits Therapy Treatment to include: 36320 - Hot Cold Pack, 15334 - Therapeutic Exercise, 31536 - Neuromuscular Re-education, 78908 - Manual Therapy, 74313 - Canalith Repositioning and 83317 - Therapeutic Activity Recommended Consults: None Development [...] filedocumented in this encounter Care Teams Mechanical Service Representative Relationship Specialty Start Date End Date Salome Mcarthur, PEST CONTROL SPECIALIST [address] [place] [address] PCP - General 03/14/20 documented as of this encounter
--- OUTSIDE RECORDS SUMMARY | 2024-04-16 15:44 | XMS_ITS | Encounter Summary ---
Author Organization [facility] Address [address] [place] [address] Care Team Providers Care Battery Wrecker Operator Name Role Phone Salome Mcarthur PROGRAM ENGAGEMENT DIRECTOR Primary Care Provider [phone] Encounter Details Date Type Department Care Team (Late st Contact Info) Description 10/25/[address] [facility] Pathology & Laboratory Medicine - [facility] [address] [place] [address] Outr Resulting Lab, Provider Social [...] Wendy Species Positive(A) Negative 10/26/19 12:46 EDT [facility] Wendy glabrata Positive(A) Negative 10/26/2023 12:46 EDT [facility] Trichomonas Vaginalis Negative Negative 10/26/2023 12:46 EDT [facility] BV (Bacterial vaginosis) Negative Negative 10/26/2023 12:46 EDT [facility] Swab VAGINAL STRUCTURE / Unknown 10/25/2023 11:00 EDT 10/25/2023 22:59 EDT us Provider Outr Resulting Lab MICROBIOLOGY - GENER AL ORDERABLES Final Result Performing Organization Address City/State/[facility] Co de Phone Number [facility] [address] [place] [phone] documented in this encounter Visit Diagnoses Not on filedocumented in this encounter Care Teams Battery Wrecker Operator Relationship Specialty Start Date End Date Salome Mcarthur NP [address] [place] [address] PCP - General 03/14/20 documented as of this encounter
--- OUTSIDE RECORDS SUMMARY | 2024-04-16 15:44 | XMS_ITS | Encounter Summary ---
Author Organization Formerly [place] [address] Care Team Providers Care Air Conditioning Sheet Metal Installer Name Role Phone Salome Mcarthur APRN Primary Care Provider [phone] Encounter Details Date Type Department Care Team (Late st Contact Info) Description 02/08/2009 [place] [phone] Marvin Lord MD [facility] [place] [address] Social History Tobacco Use Types Packs/Day Years Used Date Smoking Tobacco: Never Assessed Sex and Gender Information Value Date Recorded Sex Assigned at Not on file Gender Identity Not on file Sexual Orientation Not on file documented as of this encounter Plan of Treatment Upcoming Encounters Date Type Department Care Team (Late st Contact Info) Description 04/28/2024 11:00 AM [place] [phone] Molly Cui [facility] [place] [address] 04/28/2024 2:00 PM EST Office [place] [phone] Molly Cui OCCUPATIONAL HYGIENIST [facility] [place] [address] documented as of this encounter Procedures Procedure Name Priority Date/Time Associated Diagnosis Comments SURGICAL PATHOLOGY REPORT Routine 02/08/2009 7:28 AM EST documented in this encounter Results * Surgical Pathology Report (02/08/2009 7:28 AM EST) Surgical Pathology Report [id number] ? Location: OPW The signing pathologist has (i) examined the relevant preparation(s) for the specimen(s) and (ii) rendered or confirmed the diagnosis(es). . ?Pathology Surgical Pathology Final Report Clinical Information Specimen Submitted: CONSULTATION CASE A - 4 slides labeled [id number], collection date 2008. B - 6 slides labeled [id number], collection date 01/18/2009. [id number] Report to: Anjel De La Torre MD Department of Pathology [facility] [address] [place] [address] ??[id number] Gross Description [facility]'s pathology slide(s) are reviewed. ??Refer to Diagnosis and Specimen Submitted for specific case information. For the full text of the [facility] report(s) please refer to Non-DH Documentation Pathology in the Clinical Information System (CIS). Microscopic Description Slides reviewed, microscopic description not recorded. Diagnosis CONSULTATION CASE A - Outside slides labeled [id number], collection date 2008: ?1. 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 ?There is no evidence of dysplasia. ?2. ??Urinary bladder, inferior to main tumor, biopsy: ?Urothelial mucosa with chronic inflammation and reactive atypia. ?There is no evidence of dysplasia. B - Outside slides labeled [id number], collection date 01/18/2009: ?1. ??Bladder, left dome, [...] MD PATHOLOGY/CYTOLOGY O RDERADOMINGA Performing Organization Address City/State/[facility] Co de Phone Number [facility] documented in this encounter Visit Diagnoses Not on filedocumented in this encounter Care Teams Air Conditioning Sheet Metal Installer Relationship Specialty Start Date End Date Salome Mcarthur, OCCUPATIONAL HYGIENIST [address] [place] [address] PCP - General Family Medicine 05/30/15 12/11/23 documented as of this encounter
--- OUTSIDE RECORDS SUMMARY | 2024-04-16 15:44 | XMS_ITS | Encounter Summary ---
Author Organization [facility] Address [address] [place] [address] Care Team Providers Care Senior Manufacturing Test Engineer Name Role Phone Salome Mcarthur RN MDS Primary Care Provider [phone] Encounter Details Date Type Department Care Team (Latest Contact Info) Description 09/06/2022 Plan of Care Documentation [address] [address]182 Social History Tobacco Use Types Packs/Day Years [...] she was so sensitive to bilateral Hallpike Westgate, she has bilateral posterior canalithesis. She has [...] for 6 weeks. Therapy Treatment to include: 30136 - Therapeutic Exercise, 37783 - Neuromuscular Re-education, 85478 - Canalith Repositioning and 65535 - Therapeutic Activity Recommended Consults: None currently Development of Plan of Care: Patient participated in development of plan of care today. Plan for next visit: Review the right Amanda for independence. Assess response to current exercises,and assess Hallpike-Westgate again. If still has vertigo, may attempt [...] filedocumented in this encounter Care Teams Senior Manufacturing Test Engineer Relationship Specialty Start Date End Date Salome Mcarthur RN MDS [address] [place] [address] PCP - General 03/14/20 documented as of this encounter
--- OUTSIDE RECORDS SUMMARY | 2024-04-16 15:44 | XMS_ITS | Encounter Summary ---
Author Organization [facility] Address [address] [place] [address] Care Team Providers Care Physical Instructor Name Role Phone LeathaLizbet FLIGHT INFORMATION EXPEDITER Primary Care Provider [phone] Encounter Details Date Type Department Care Team (Latest Contact Info) Description 12/03/2013 12:35 EDT - 12/03/2013 23:59 EDT Hospital Encounter [facility] [address] [place] [address] Unknown, Provider, MD Discharge Disposition: Home or [...] 1 Tab by mouth daily before breakfast. [place]-3 Fatty Acids-Vitamin E (FISH OIL) 1,000 mg [...] Code Departure Means Destination Home or Self [facility] documented in this encounter Plan of Treatment Not on file documented as of this encounter Visit Diagnoses Not on filedocumented in this encounter Care Teams Physical Instructor Relationship Specialty Start Date End Date Lizbet Zhang FNP [address] [place] [address] PCP - General 02/24/13 03/13/20 documented as of this encounter
--- OUTSIDE RECORDS SUMMARY | 2024-04-16 15:44 | XMS_ITS | Encounter Summary ---
Author Organization [facility] Address [address] [place] [address] Care Team Providers Care Bank Officer Name Role Phone Salome Mcarthur FORMING DEPARTMENT END FINDER Primary Care Provider [phone] Reason for Visit * Reason Onset Date Comments New/Evolving Symptoms 01/05/2022 Encounter Details Date Type Department Care Team (Late st Contact Info) Description 01/05/2022 Telephone [facility] [address] [place] [address], [place] [address] Brittanie Ponce MD [address] [facility] [address] [place] [address] New/Evolving Symptoms Social History Tobacco [...] on filedocumented in this encounter Care Teams Bank Officer Relationship Specialty Start Date End Date Salome Mcarthur NP [address] [place] [address] PCP - General 03/14/20 documented as of this encounter
--- OUTSIDE RECORDS SUMMARY | 2024-04-16 15:44 | XMS_ITS | Encounter Summary ---
Author Organization [facility] Address [address] [place] [address] Care Team Providers Care Oil Distributor Name Role Phone Salome Mcarthur TRANSIT PLANNER Primary Care Provider [phone] Encounter Details Date Type Department Care Team (Late st Contact Info) Description 09/20/2022 Documentation Visit [facility] - [address] [phone] Kal Clark, PT [address] [place], [place] [id number] Social History Tobacco Use Types Packs/Day Years [...] Clark, PT - 09/20/2022 1049 EDT [facility] Outpatient Rehabilitation Services [phone] Physical Therapy Discharge Not Seen Recently Medical [...] filedocumented in this encounter Care Teams Oil Distributor Relationship Specialty Start Date End Date Salome Mcarthur, JEIMY [address] [place] [address] PCP - General 03/14/20 documented as of this encounter
--- OUTSIDE RECORDS SUMMARY | 2024-04-16 15:44 | XMS_ITS | Encounter Summary ---
Author Organization [facility] Address [address] [place] [address] Care Team Providers Care Woodworking Machine Operator Name Role Phone Lizbet Zhang Primary Care Provider [phone] Encounter Details Date Type Department Care Team (Late st Contact Info) Description 01/19/2014 Orders Only [facility] Infectious Disease - [address] [phone] Pino Oleary, TRISHA Social History Tobacco Use [...] on filedocumented in this encounter Care Teams Woodworking Machine Operator Relationship Specialty Start Date End Date Lizbet Zhang FNP [address] [place], [place] [address] PCP - General 02/24/13 03/13/20 documented as of this encounter
--- OUTSIDE RECORDS SUMMARY | 2024-04-16 15:44 | XMS_ITS | Encounter Summary ---
Author Organization [facility] Address [address] [place] [address] Care Team Providers Care Retail Office Associate Name Role Phone Salome Mcarthur DIRECTOR CONSUMER Primary Care Provider [phone] Encounter Details Date Type Department Care Team (Latest Contact Info) Description 09/28/2021 Plan of Care Documentation [facility] Rehabilitation Therapy [address] [place] [phone] Social History Tobacco Use Types Packs/Day Years [...] Notes * Kal Clark, PT - 09/28/2021 5027 EDT Outpatient Rehab Plan of Care ASSESSMENT Therapy Diagnosis: BPPV, left posterior canalithiasis, 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 Problem List: Impaired balance, Need for an independent home exercise program and Vertigo Assessment: Pt presents with about 3 month onset of vertigo. She demonstrates mild impairments in her VOR response, possibly causing her impaired balance. Her main vertigo symptoms were elicited witha right Hallpike-Porum maneuver, and resolved in less than 5 [...] for 6 weeks Therapy Treatment to include: 00891 - Therapeutic Exercise, 44220 - Neuromuscular Re-education, 48827 - Canalith Repositioning and 01616 - Therapeutic Activity Recommended Consults: None currently [...] Attending Physician Signature Date Kal Clark, PT 09/28/2021 15:57 documented in this encounter Plan of Treatment Not on file documented as of this encounter Visit Diagnoses Not on filedocumented in this encounter Care Teams Retail Office Associate Relationship Specialty Start Date End Date Salome Mcarthur, JEIMY [address] [place] [address] PCP - General 03/14/20 documented as of this encounter
--- OUTSIDE RECORDS SUMMARY | 2024-04-16 15:44 | XMS_ITS | Encounter Summary ---
Author Organization [facility] Address [address] [place] [address] Care Team Providers Care Last Inserter Name Role Phone Agustin Ramires MD Primary Care Provider [phone] Reason for Visit * Reason Comments Post-OP Follow Up weak stream Encounter Details Date Type Department Care Team (Latest Contact Info) Description 09/13/2011 11:45 EDT Office Visit [facility] Pelvic Medicine and Reconstructive Surgery - Medical Office [facility] [address] [place] [address] Tim Molina MD [address] [place] [phone] Female bladder prolapse (Primary Dx); Rectocele; [...] Tim Molina MD - 09/14/2011 0858 EDT [facility] [place] [address] Telephone Toll-Free PROGRESS/FOLLOWUP NOTE - 09/13/2011 SUBJECTIVE: [...] next 6 weeks. Since I am leaving [place], she will need to follow up with an alternative urologist in the future and, of course, this could be Dr Ashutosh alcaraz or one of the urologists here at [facility] as needed. Electronically Signed by Tim Molina MD 09/18/2011 13:28 Tim Molina MD - Tim Molina MD - MLD Job ID: SM Doc ID: [id number] Ext Doc ID: [id number] cc: MD Leland Aburto MD * Tim [...] Ketones Neg Neg [facility] Specific [place] <=1.005 1.001 - 1.035 [facility] Blood Trace(A) Neg [facility] pH 5.0 4.6 - 8.0 [facility] Protein Neg Neg [facility] Urobilinogen 0.2 0.2 - 1.0 E.U./dl [facility] Nitrite Neg Neg [facility] Leuk Esterase 1+(A) Neg MAGY CURIEL [facility] structures technician ID [id number] [facility] Comment:Test performed at [facility] Urine specimen (specimen) 09/13/2011 11:38 EDT 09/13/2011 11:44 EDT us Tim Molina MD POINT OF CARE TEST ORDERABL ES Final Result [facility] [address] [place] [address] documented in this encounter Visit Diagnoses Diagnosis Female bladder prolapse- Primary Cystocele, midline Rectocele Mixed incontinence urge and stress Mixed incontinence urge and stress (male)(female) documented in this encounter Care Teams Last Inserter Relationship Specialty Start Date End Date Agustin Ramires MD [address] [place] [address] PCP - General 08/20/11 02/23/13 documented as of this encounter
--- OUTSIDE RECORDS SUMMARY | 2024-04-16 15:44 | XMS_ITS | Encounter Summary ---
Author Organization [facility] Address [address] [place] [address] Care Team Providers Care Jig Grinder Name Role Phone LeathaLizbet HEAD BANDER AND LINER OPERATOR Primary Care Provider [phone] Reason for Visit * Reason Comments New Patient Visit Encounter Details Date Type Department Care Team (Late st Contact Info) Description 02/24/2013 12:45 EST Office Visit [facility] Infectious Disease - [address] [phone] Nilo Baltazar MD [address] [place] [address], [address] [place] [address] Nubia Krause DO Candidiasis of [...] tumor removal 2007 Soc Hx: Lives in [place]. Denies smoking, drinking alcohol. Fam Hx: Cirrhosis [...] would be beneficial to get evaluated by SIGNAL SYSTEM TESTING MAINTAINER, or if PCP could perform pelvic exam [...] would like to have those drawn at [facility] on her next PCP visit): HgA1C (if not done), CBC with differential, Immunoglobulins, HIV Ab 3. SIGNAL SYSTEM TESTING MAINTAINER eval for vaginal dryness/pelvic exam 4. F/u [...] mouth documented in this encounter Care Teams Jig Grinder Relationship Specialty Start Date End Date Lizbet Zhang, INDIRA [facility] [place] [address] PCP - General 02/24/13 03/13/20 documented as of this encounter
--- OUTSIDE RECORDS SUMMARY | 2024-04-16 15:44 | XMS_ITS | Encounter Summary ---
Author Organization [facility] Address [address] [place] [address] Care Team Providers Care Photoengraving Supervisor Name Role Phone Lizbet Zhang ENGRAVER PICTURE Primary Care Provider [phone] Salome Mcarthur TIRE REGROOVING MACHINE OPERATOR Primary Care Provider [phone] Encounter Details Date Type Department Care Team (Late st Contact Info) Description 08/19/2019 Lab Requisition [facility] Pathology & Laboratory Medicine - [address] [phone] Outr Resulting Lab, Provider Social History Tobacco [...] Priority Date/Time Associated Diagnosis Comments ZZCOVID-19 TEST [facility] PCR Today 08/19/2019 21:00 EDT COVID-19 TESTING Routine 08/19/2019 21:0 0 EDT documented in this encounter Results * COVID-19 TEST [facility] PCR (08/19/2019 21:00 EDT) Swab ENTIRE NASOPHARYNX / Unknown 08/19/2019 21:00 EDT 08/19/2019 23:27 EDT us Provider Outr Resulting Lab MICROBIOLOGY - GENER AL ORDERABLES Final Result Performing Organization Address City/[facility]/ZIP Co de Phone Number [facility] [address] [place] [address] * COVID-19 TESTING (08/19/2019 21:00 EDT) COVID-19 rt-PCR Result Negative Negative 08/20/2019 2:04 EDT [facility] Comment: This test has [...] history, and epidemiological information. Performed on the Maven7 Fusion instrument Performing Lab [facility] 08/20/2019 2:04 EDT [facility] Swab ENTIRE NASOPHARYNX / Unknown 08/19/2019 21:00 EDT 08/19/2019 23:27 EDT us Provider Outr Resulting Lab MICROBIOLOGY - GENER AL ORDERABLES Final Result [facility] [address] [place] [address] documented in this encounter Visit Diagnoses Not on filedocumented in this encounter Care Teams Photoengraving Supervisor Relationship Specialty Start Date End Date Lizbet Zhang FNP [address] [place] [address] PCP - General 02/24/13 03/13/20 Salome Mcarthur, JEIMY [address] [place] [address] PCP - General 03/14/20 documented as of this encounter
--- OUTSIDE RECORDS SUMMARY | 2024-04-16 15:44 | XMS_ITS | Encounter Summary ---
Author Organization [facility] Address [address] [place] [address] Care Team Providers Care Materials And Processes Manager Name Role Phone LeathaLizbet ROLL TUBE SETTER Primary Care Provider [phone] Encounter Details Date Type Department Care Team (Latest Contact Info) Description 10/17/2017 12:36 EDT - 10/17/2017 23:59 EDT Hospital Encounter [facility] [address] [place] [address] Unknown, Provider, MD Discharge Disposition: Home or [...] 1 Tab by mouth daily before breakfast. [place]-3 Fatty Acids-Vitamin E (FISH OIL) 1,000 mg [...] on filedocumented in this encounter Care Teams Materials And Processes Manager Relationship Specialty Start Date End Date Lizbet Zhang FNP [address] [place] [address] PCP - General 02/24/13 03/13/20 documented as of this encounter
--- OUTSIDE RECORDS SUMMARY | 2024-04-16 15:44 | XMS_ITS | Encounter Summary ---
Author Organization [facility] Address [address] [place] [address] Care Team Providers Care Vocational Services Specialist Name Role Phone Salome Mcarthur FIRE INFORMATION OFFICER Primary Care Provider [phone] Encounter Details Date Type Department Care Team [...] on filedocumented in this encounter Care Teams Vocational Services Specialist Relationship Specialty Start Date End Date Salome Mcarthur, FIRE INFORMATION OFFICER [address] [place] [address] PCP - General 03/14/20 documented as of this encounter
--- OUTSIDE RECORDS SUMMARY | 2024-04-16 15:45 | XMS_ITS | Encounter Summary ---
Author Organization [facility] Address [address] [place] [address] Care Team Providers Care Last Puller Name Role Phone Avel Rivera MD Primary Care Provider Unav ailable Encounter Details Date Type Department Care Team (Late st Contact Info) Description 12/12/2005 Before PRISM Converted Visit (Maple) [facility] conversion [address] [place] [address] Tiara Mendez MD [phone] [place] [address] Social History Tobacco Use Types Packs/Day Years Used Date Smoking Tobacco: Never Assessed Comments Unknown Sex and Gender Information Value Date Recorded Sex Assigned at Not on file Legal Sex Female 18:18 EST Gender Identity Female 02/14/2022 14:15 EST Sexual Orientation Not on file documented as of this encounter Progress Notes * Tad, Conv Baker Pie - 04/14/[address] [facility] PROGRESS/FOLLOWUP NOTE - 12/12/2005 S: Milka comes [...] Mendez MD P - prs Job ID: [id number] Document ID: [id number] cc: - Tiara Mendez MD P - prs Job ID: [id number] Document ID: [id number] cc: documented in this encounter Plan of Treatment Not on file documented as of this encounter Visit Diagnoses Not on filedocumented in this encounter Care Teams Last Puller Relationship Specialty Start Date End Date Avel Rivera MD PCP - General 5/29/09 4/4/10 documented as of this encounter
--- OUTSIDE RECORDS SUMMARY | 2024-04-16 15:45 | XMS_ITS | Encounter Summary ---
Author Organization [facility] Address [address] [place] [address] Care Team Providers Care Executive Chairman Name Role Phone Kayleigh Peña Primary Care Provider [phone] Reason for Visit * Reason Comments Other URO Encounter Details Date Type Department Care Team (Latest Contact Info) Description 07/03/2011 11:00 EDT Office Visit [facility] Pelvic Medicine and Reconstructive Surgery - Medical Office [facility] [address] [place] [address] Tim Molina MD [address] [place] [phone] Female bladder prolapse (Primary Dx); Rectocele; [...] encounter Miscellaneous Notes * Scanned Note-Null - TRAVEL FREIGHT AND PASSENGER AGENT, SCAN 2 - 07/09/2011 1136 EDT documented [...] Ketones Neg Neg [facility] Specific [place] 1.010 1.001 - 1.035 [facility] Blood Neg Neg [facility] pH 5.0 4.6 - 8.0 [facility] Protein Neg Neg [facility] Urobilinogen 0.2 0.2 - 1.0 E.U./dl [facility] Nitrite Neg Neg [facility] Leuk Esterase Neg Neg [facility] vice president industrial relations ID [id number] [facility] Comment:Test performed at [facility] [place] Urine specimen (specimen) 07/03/2011 10:26 EDT 07/03/2011 10:35 EDT us Tim Molina MD POINT OF CARE TEST ORDERABL ES Final Result [facility] [address] [place] [address] documented in this encounter Visit Diagnoses Diagnosis [...] 07/02 documented in this encounter Care Teams Executive Chairman Relationship Specialty Start Date End Date Kayleigh Peña PA [address] [facility] [address] [place] [address] PCP - General 05/16/11 08/19/11 documented as of this encounter
--- OUTSIDE RECORDS SUMMARY | 2024-04-16 15:45 | XMS_ITS | Encounter Summary ---
Author Organization [facility] Address [address] [place] [address] Care Team Providers Care Fell Cutter Name Role Phone Unknown, Provider Primary Care [...] Info) Description 05/18/2010 11:30 EST Office Visit [facility] - [address] [address] Unknown, Provider, MD Jaeger, Montrell Holman MD [address] [place] [address] [address] LPRD (laryngopharyngeal reflux disease); Deviated [...] Montrell Jaeger MD - 05/23/2010 1635 EST [facility] - 05/18/2010 Kayleigh Peña NEW MEDIA STRATEGIST [address] [place] [address], [address] [place] [address] Dear Jessearnel: This is a consult from [...] - THANIA Job ID: SM Doc ID: [id number] Ext Doc ID: [id number] cc: TOPHER Mackey documented in this encounter [...] 2 times daily with breakfast and dinner. [place]-3 Fatty Acids-Vitamin E (FISH OIL) 1,000 mg Cap Take by mouth daily. added in this encounter Care Teams Fell Cutter Relationship Specialty Start Date End Date Unknown, Provider, PCP - General 05/17/10 02/07/11 documented as of this encounter
--- OUTSIDE RECORDS SUMMARY | 2024-04-16 15:45 | XMS_ITS | Encounter Summary ---
Author Organization [facility] Address [address] [place] [address] Care Team Providers Care Solderer Production Line Name Role Phone Agustin Ramires MD Primary Care Provider [phone] Encounter Details Date Type Department Care Team (Latest Contact Info) Description 08/21/2011 6:58 EDT - 08/22/2011 15:08 EDT Hospital Encounter [facility] Neurosurgery Unit [address], [place] [id number] Tim Molina MD [address] [place] [address] Discharge Disposition: Home or Self Care [...] 1 Tab by mouth daily before breakfast. Newville-3 Fatty Acids-Vitamin E (FISH OIL) 1,000 mg [...] spiritual, emotional, legal, etc.): Prescription coverage through [facility] ([facility]). Denies needs for post-acute services. Patient may go home with Singer. Spouse feels comfortable and has been a pharmaceutical specialty representative for the patient In the past when she had a Singer. Spouse will provide transportation home and for post-acute needs. Case Management Actions (completed and planned): DCP: home with spouse. No post-acute needs identified. Andreia Faustin RN, CCM #[id number] * Sandra Irwin PA - 08/22/2011 0857 EDT [facility] Urologic Surgery Daily Progress Note Admit Date: [...] DOS fexofenadine (JESÚS) 60 mg tablet Yes Newville-3 Fatty Acids-Vitamin E (FISH OIL) 1,000 mg [...] documented in this encounter H&P Notes * DEMOLITION ENGINEER, SCAN 2 - 08/29/2011 1153 EDT * [...] documented in this encounter Procedure Notes * DEMOLITION ENGINEER, SCAN 2 - 08/24/2011 2202 EDTAssociated Order(s): ECG REPORT - SCANNED documented in this encounter Nursing Notes * DEMOLITION ENGINEER, SCAN 2 - 08/24/2011 2202 EDT documented in this encounter OR Notes * OR PreOp - DEMOLITION ENGINEER, SCAN 2 - 08/24/2011 2202 EDT * [...] repair and cystoscopy. SURGEON: Tim Molina MD SUPERVISOR BOTTLE HOUSE CLEANERS: Montrell Barron SA FINDINGS: After cystocele repair was completed, cystoscopy showed good efflux of urine from each ureteral orifice. After Stamey needle passage there was no evidence of needle entry into the bladder or urethra on cystoscopy. ANESTHESIA: General. ESTIMATED BLOOD LOSS: Less than 100 mL. FLUIDS: Approximately 1 L of crystalloid. SPECIMENS: None. DRAINS: A 16-Paraguayan Singer catheter, and an Estrace-coated vaginal packing. [...] weighted vaginal speculum was placed and a Bethune retractor with retracting hooks was placed for adequate exposure to the vagina. At this point, the anterior vaginal wall was grasped between Allis clamps. A 16-Paraguayan Singer catheter was placed into the bladder. [...] then tied across the midline over the assistant front desk manager's finger being used as a spacer, which [...] / Tim Farrell. MD Jesse cs Confirmation: [id number] Dictation ID: [id number] cc:Agustin Boykin MD * Anesthesia Procedure Notes - DEMOLITION ENGINEER, SCAN 2 - 08/21/2011 1338 EDT * OR PreOp - DEMOLITION ENGINEER, SCAN 2 - 08/21/2011 1326 EDT * Anesthesia Preprocedure Evaluation - DEMOLITION ENGINEER, SCAN 2 - 08/21/2011 1001 EDT documented in this encounter Miscellaneous Notes * Scanned Note-Null - DEMOLITION ENGINEER, SCAN 2 - 08/24/20112201 EDT * Scanned Note-Null - DEMOLITION ENGINEER, SCAN 2 - 08/24/20112201 EDT * Plan [...] Care - Silvia Gr RN - 08/22/2011 5244 EDT Problem: PAIN Goal: Patient???s pain/discomfort is manageable/tolerable Data: Patient c/o pain in abd and vagina 06/15. Action: Medicated with PRN tylenol and dilaudid. Response: Patient is now resting comfortably, will continue to monitor. Silvia Gr RN 08/22/2011 3:43 * Plan of Care - Jewels Wheeler RN - 08/21/2011 4185 EDT Problem: OXYGENATION/REPIRATORY FUNCTION Goal: Patient will achieve/maintain baseline respiratory rate/effort Outcome: Ongoing Active Multi-Disciplinary problems: FALL RISK [109162] (08/21/11) HEMODYNAMIC STATUS [430143] (08/21/11) OXYGENATION/REPIRATORY FUNCTION [541768] (08/21/11) PAIN [099867] (08/21/11) MOBILITY [133184] (08/21/11) KNOWLEDGE DEFICIT,EDUCATION,DISCHARGE PLAN [099474] (08/21/11) Data: Patient arrived on M6, minimal [...] Tim Molina MD - 08/21/2011 1315 EDT [facility] Urologic Surgery Brief Post-Op Note Date of [...] EDT) 08/24/2011 22:0 2 EDT Narrative Transcriptions DEMOLITION ENGINEER, SCAN 2 - 08/24/2011 22:02 EDT us Scan 2 Security Systems Engineer PROCEDURE/MINOR SURGICAL OR DERABLES Final Result * (ABNORMAL) GLUCOSE, GLUCOMETER (08/22/2011 11:44 EDT) Glucose, Fingerstick 162(H) 70 - 100 mg/dl [facility] Medical Device Sales Representative ID [id number] [facility] Comment:Test Performed by [facility] 08/22/2011 11:4 4 EDT 08/22/2011 11:45 EDT us Tim Molina MD CHEMISTRY & BLOOD GAS ORDER JOEY Final Result Performing Organization Address [facility] Co de Phone Number [facility] [address] [place] [address] * (ABNORMAL) GLUCOSE, GLUCOMETER (08/22/2011 7:11 EDT) Glucose, Fingerstick 137(H) 70 - 100 mg/dl [facility] Medical Device Sales Representative ID [id number] [facility] Comment:Test Performed by [facility] 08/22/2011 7:11 EDT 08/22/2011 7:13 EDT us Tim Molina MD CHEMISTRY & BLOOD GAS ORDER JOEY Final Result Performing Organization Address City/[facility]/ZIP Co de Phone Number [facility] [address] [place] [address] * CREATININE (08/22/2011 3:28 EDT) Creatinine 0.54 0.52 - 1.04 mg/dl [facility] GFR, Calculated >60 >60 ml/min/1.7 3m2 [facility] Blood specimen (specimen) 08/22/2011 3:28 EDT 08/22/2011 3:42 EDT Sandra Mcdermott Stampfl PA-C CHEMISTRY & BLOOD GAS O RDERABLES Final Result Performing Organization Address [facility] de Phone Number [facility] [address] [place] [address] * BUN (08/22/2011 3:28 EDT) BUN 13 10 - 26 mg/dl [facility] Blood specimen (specimen) 08/22/2011 3:28 EDT 08/22/2011 3:42 EDT Sandra Maofl PA-C CHEMISTRY & BLOOD GAS O RDERABLES Final Result Performing Organization Address [facility] Phone Number [facility] [address] [place] [address] * (ABNORMAL) ELECTROLYTES (08/22/2011 3:28 EDT) Sodium [...] O RDERABLES Final Result Performing Organization Address [facility] Co de Phone Number [facility] [address] [place] [address] * (ABNORMAL) HEMAGRAM (08/22/2011 3:28 EDT) Pathologist [...] PLT 152 141 - 320 K/cmm [facility] RDW-CV 13.6 11.7 - 14.6 % [facility] Blood specimen (specimen) 08/22/2011 3:28 EDT 08/22/2011 3:42 EDT us Sandra Irwin PA-C HEMATOLOGY & PF4 ORDERA BLES Final Result [facility] [address] [place] [address] * (ABNORMAL) GLUCOSE, GLUCOMETER (08/21/2011 21:09 EDT) [facility] Glucose, Fingerstick 170(H) 70 - 100 mg/dl [facility] Medical Device Sales Representative ID [id number] [facility] Comment:Test Performed by [facility] 08/21/2011 21:0 9 EDT 08/21/2011 21:28 EDT us Tim Molina MD CHEMISTRY & BLOOD GAS ORDER JOEY Final Result [facility] [address] [place] [address] * (ABNORMAL) GLUCOSE, GLUCOMETER (08/21/2011 19:35 EDT) Glucose, Fingerstick 190(H) 70 - 100 mg/dl [facility] Medical Device Sales Representative ID [id number] [facility] Comment:Test Performed by [facility] [facility] 08/21/2011 19:3 5 EDT 08/21/2011 19:40 EDT us Tim Molina MD CHEMISTRY & BLOOD GAS ORDER JOEY Final Result Performing Organization Address [facility] Co de Phone Number [facility] [address] [place] [address] * (ABNORMAL) GLUCOSE, GLUCOMETER (08/21/2011 13:36 EDT) Glucose, Fingerstick 189(H) 70 - 100 mg/dl [facility] Medical Device Sales Representative ID [id number] [facility] Comment:Test Performed by [employer] rsing Pocket Concierge 08/21/2011 13:3 6 EDT 08/21/2011 16:10 EDT us Tim Molina MD CHEMISTRY & BLOOD GAS ORDER JOEY Final Result Performing Organization Address [facility] de Phone Number [facility] [address] [place] [address] * (ABNORMAL) GLUCOSE, GLUCOMETER (08/21/2011 8:38 EDT) Glucose, Fingerstick 142(H) 70 - 100 mg/dl [facility] Medical Device Sales Representative ID [id number] [facility] Comment:Test Performed by [employer] [facility] Services 08/21/2011 8:38 EDT 08/21/2011 8:44 EDT us Tim Molina MD CHEMISTRY & BLOOD GAS ORDER JOEY Final Result Performing Organization Address [facility] de Phone Number [facility] [address] [place] [address] documented in this encounter Visit Diagnoses Not [...] Provider: Lana Bowles - Comment: Administered by [facility]) clonAZEPAM (KLONOPIN) tablet 0.5 mg (CANCELED) [...] (Given - Provider: Romy Menezes, TRISHA) fexofenadine (JESÚS) 12 hr tablet 180 mg [...] mL syringe 0.5 mg 1 0 08/21/2011 wxqsxsemeo-rfgdkyq-ijdowaix (FIORINAL) 50-325-40 mg capsule 1 Cap 1 [...] 08/22/2011 documented in this encounter Care Teams Solderer Production Line Relationship Specialty Start Date End Date Agustin Ramires MD [address] [address] [place] [phone] PCP - General 08/20/11 02/23/13 documented as of this encounter
--- OUTSIDE RECORDS SUMMARY | 2024-04-16 15:45 | XMS_ITS | Encounter Summary ---
Author Organization [facility] Address [address] [place] [address] Care Team Providers Care Farm Loan Representative Name Role Phone Unknown, Provider Primary Care Provider Agustin Anna MD Primary Care Provider [phone] Kayleigh Peña Primary Care Provider [phone] Agustin Ramires MD Primary Care Provider [phone] Lizbet ZhangP Primary Care Provider [phone] Encounter Details Date Type Department Care Team (Late st Contact Info) Description 07/17/2010 Historical Results Only [facility] Lab - Main [address] [address] Leland Boykin MD Social History Tobacco Use [...] (07/17/2010) 07/17/2010 07/18/2010 9:3 2 EDT Narrative [facility] - 07/21/2010 15:57 EDT ----- ------- Name: MILKA MENDIETA ?: 42 ?Age/Sex: 78/F ?Unit#: [id number] ? Loc: LAB.OPX ? Status: REG REF ?? Reg Date: 07/17/10 ? Pt.Phone Number: ? ----- ------- Specimen: [id number] ? STATUS: SOUT ?Spec Date:07/17/10 ? Physician Copies: ?Leland Boykin MD ?? Tissues: ? Urine (CLEAN CATCH) ? CPT: 51030 ?? Units: ??1 ----- ------- ?? NON WOOD HACKER CYTOLOGY DIAGNOSIS Urine,voided: ??Benign urothelial cells. ??Background [...] the above diagnosis. Test Performed by [facility], [address] [place] [address] [place] [address] Woodworking Shop Hand: Namrata Childs MD PHD ----- ------- us Leland Boykin MD PATHOLOGY ORDERABLES Final Resul t [facility] documented in this encounter Visit Diagnoses Not on filedocumented in this encounter Care Teams Farm Loan Representative Relationship Specialty Start Date End Date Unknown, Provider, PCP - General 05/17/10 02/07/11 Agustin Ramires MD [address],[facility] [address] [place] [phone] PCP - General 02/08/11 05/15/11 Kayleigh Peña PA [address] [facility] [address] [place] [address] PCP - General 05/16/11 08/19/11 Agustin Ramires MD [address],[facility] [address] [place] [address] PCP - General 08/20/11 02/23/13 Lizbet Zhang FNP [address] [facility] [place] [id number] PCP - General 02/24/13 03/13/20 documented as of this encounter
--- OUTSIDE RECORDS SUMMARY | 2024-04-16 15:45 | XMS_ITS | Encounter Summary ---
Author Organization [facility] Address [address] [place] [address] Care Team Providers Care Manager Infusion Name Role Phone Avel Rivera MD Primary Care Provider Unav ailable Encounter Details Date Type Department Care Team (Late st Contact Info) Description 03/14/2006 Before PRISM Converted Visit (Maple) [facility] - Maple conversion [address] [place] [address] Tiara Mendez MD [phone] [place] [address] Social History Tobacco Use Types Packs/Day Years Used Date Smoking Tobacco: Never Assessed Comments Unknown Sex and Gender Information Value Date Recorded Sex Assigned at Not on file Legal Sex Female 18:18 EST Gender Identity Female 02/14/2022 14:15 EST Sexual Orientation Not on file documented as of this encounter Progress Notes * Tad, Conv Sports Anchor - 04/25/2009 0014 EST [facility] PROGRESS/FOLLOWUP NOTE - 04/04/2006 Milka is here [...] Mendez MD P - sa Job ID: [id number] Document ID: [id number] * Alison Mishra Sports Anchor - 04/24/20091955 EST [facility] PROGRESS/FOLLOWUP NOTE - 03/14/2006 SUBJECTIVE: comes in [...] Mendez MD P - clr Job ID: [id number] Document ID: [id number] cc: documented in this encounter Plan of Treatment Not on file documented as of this encounter Visit Diagnoses Not on filedocumented in this encounter Care Teams Manager Infusion Relationship Specialty Start Date End Date Avel Rivera MD PCP - General 09/03/08 07/10/09 documented as of this encounter
--- OUTSIDE RECORDS SUMMARY | 2024-04-16 15:45 | XMS_ITS | Encounter Summary ---
Author Organization [facility] Address [address] [place] [address] Care Team Providers Care College Recruiter Name Role Phone Unavailable Primary Care Provider Unavailabl e Encounter Details Date Type Department Care Team (Latest Contact Info) Description 06/24/2008 23:22 EDT Hospital Encounter [facility] - Other [address] [place] [address] Anjel De La Torre MD Discharge Disposition: [...]
--- OUTSIDE RECORDS SUMMARY | 2024-04-16 15:45 | XMS_ITS | Encounter Summary ---
Author Organization [facility] Address [address] [place] [address] Care Team Providers Care Boat Laborer Name Role Phone Avel Rivera MD Primary Care Provider Unav ailable Encounter Details Date Type Department Care Team (Late st Contact Info) Description 01/27/2007 Before PRISM Converted Visit (Maple) [facility] - Maple conversion [address] [place] [address] Tiara Mendez MD [phone] [place] [address] Social History Tobacco Use Types Packs/Day Years Used Date Smoking Tobacco: Never Assessed Comments Unknown Sex and Gender Information Value Date Recorded Sex Assigned at Not on file Legal Sex Female 18:18 EST Gender Identity Female 02/14/2022 14:15 EST Sexual Orientation Not on file documented as of this encounter Progress Notes * Tad, Conv Director Of Physical Therapy - 02/15/20091955 EST [facility] PROGRESS/FOLLOWUP NOTE - 01/27/2007 ANA M Jarquin [...] 15:02 Tiara Mendez MD P Job ID [id number] T: 12:49 P/jg Doc ID [id number] cc: Tiara Mendez MD P Job ID [id number] P/jg Doc ID [id number] cc: documented in this encounter Plan of Treatment Not on file documented as of this encounter Visit Diagnoses Not on filedocumented in this encounter Care Teams Boat Laborer Relationship Specialty Start Date End Date Avel Rivera MD PCP - General 09/03/08 07/10/09 documented as of this encounter
--- OUTSIDE RECORDS SUMMARY | 2024-04-16 15:45 | XMS_ITS | Encounter Summary ---
Author Organization [facility] Address [address] [place] [address] Care Team Providers Care Change Agent Name Role Phone Avel Rivera MD Primary Care Provider Unav ailable Encounter Details Date Type Department Care Team (Late st Contact Info) Description 10/05/2005 Before PRISM Converted Visit (Maple) [facility] - Maple conversion [address] [place] [address] Tiara Mendez MD [phone] [place] [address] Social History Tobacco Use Types Packs/Day Years Used Date Smoking Tobacco: Never Assessed Comments Unknown Sex and Gender Information Value Date Recorded Sex Assigned at Not on file Legal Sex Female 18:18 EST Gender Identity Female 02/14/2022 14:15 EST Sexual Orientation Not on file documented as of this encounter Progress Notes * Tad, Conv Storeroom Keeper - 04/01/2009 0953 EST [facility] PROGRESS/FOLLOWUP NOTE - 10/05/2005 SUBJECTIVE: Milka [...] We discussed possibly referring her to a form setter helper but she would like to wait until [...] #2: Rosacea which is covered up by [employer] today. Trial of MetroGel 1% b.i.d. until clear. Explained that this will probably be an ongoing problem for her. PROBLEM #3: Diabetes. Continue with checking her blood sugars regularly and will check a xgfpkqgcavN4K at her convenience. PROBLEM #4: Hypertriglyceridemia. Check [...] by Tiara Mendez MD 10/17/2005 19:19 Krishna Menedz, Luke Mendez MD Tiara Mendez MD - Tiara Mendez MD P - jennie Job ID: [id number] Document ID: [id number] cc: documented in this encounter Plan of Treatment Not on file documented as of this encounter Visit Diagnoses Not on filedocumented in this encounter Care Teams Change Agent Relationship Specialty Start Date End Date Avel Rivera MD PCP - General 09/03/08 07/10/09 documented as of this encounter
--- OUTSIDE RECORDS SUMMARY | 2024-04-16 15:45 | XMS_ITS | Encounter Summary ---
Author Organization [facility] Address [address] [place] [address] Care Team Providers Care Title One Kindergarten Teacher Name Role Phone Agustin Ramires MD Primary Care Provider [phone] Unknown, Provider Primary Care Provider Unava ilable Agustin Ramires MD Primary Care Provider [phone] Kayleigh Peña Primary Care Provider [phone] Agustin Ramires MD Primary Care Provider [phone] Lizbet Zhang PRODUCT/DEVICE TECHNOLOGIST Primary Care Provider + [phone] Encounter Details Date Type Department Care Team (Late st Contact Info) Description 11/09/2009 Historical Results Only [facility] Lab - Main [address] [address] Leland Boykin MD Social History Tobacco Use [...] (11/09/2009) 11/09/2009 11/09/2009 17: 51 EDT Narrative [facility] - 11/10/2009 13:18 EDT ----- ------- Name: MILKA MENDIETA ?: 42 ?Age/Sex: 78/F ?Unit#: [id number] ? Loc: LAB.OPX ? Status: REG REF ?? Reg Date: 11/09/09 ? Pt.Phone Number: ? ----- ------- Specimen: [id number] ? STATUS: SOUT ?Spec Date:11/09/09 ? Physician Copies: ?Leland Boykin MD ?? Tissues: ? Urine (CLEAN CATCH) ? CPT: 21900 ?? Units: ??1 ----- ------- ?? NON ADMITTING OFFICE ESCORT CYTOLOGY DIAGNOSIS URINE, VOIDED Benign urothelial cells. [...] confirmed the above diagnosis. Test Performed by [facility], [address] [facility] [place] [address] Telecom Sales Consultant: Namrata Childs MD PHD ----- ------- us Leland Boykin MD PATHOLOGY ORDERABLES Final Resul t [facility] documented in this encounter Visit Diagnoses Not on filedocumented in this encounter Care Teams Title One Kindergarten Teacher Relationship Specialty Start Date End Date Agustin Ramires MD [address],[facility] [address] [place] [address] PCP - General 07/11/09 05/16/10 Unknown, Provider, PCP - General 05/17/10 02/07/11 Agustin Ramires MD [address],[facility] 2 [place] [address] PCP - General 02/08/11 05/15/11 Kayleigh Peña PA [address] [facility] [address] [place] [address] PCP - General 05/16/11 08/19/11 Agustin Ramires MD [address],[facility] [address] [place] [address] PCP - General 08/20/11 02/23/13 Lizbet Zhang FNP [address] [place] [address] PCP - General 02/24/13 03/13/20 documented as of this encounter
--- OUTSIDE RECORDS SUMMARY | 2024-04-16 15:45 | XMS_ITS | Encounter Summary ---
Author Organization [facility] Address [address] [place] [address] Care Team Providers Care Jira Administrator Name Role Phone Unknown, Provider Primary Care Provider Agustin Anna MD Primary Care Provider [phone] Kayleigh Peña Primary Care Provider [phone] Agustin Ramires MD Primary Care Provider [phone] Lizbet Zhang DIRECTOR STATE PHARMACY Primary Care Provider [phone] Salome Mcarthur REGIONAL ACCOUNT DIRECTOR Primary Care Provider [phone] Encounter Details Date Type Department Care Team (Late st Contact Info) Description 05/17/2010 Telephone [facility] [address] [place] [address] Montrell Jaeger MD [address] [place] [address] [address] [place] [address] Social History Tobacco Use Types [...] on filedocumented in this encounter Care Teams Jira Administrator Relationship Specialty Start Date End Date Unknown, Provider, PCP - General 05/17/10 02/07/11 Agustin Ramires MD [address] [place] [phone] PCP - General 02/08/11 05/15/11 Kayleigh Peña PA [address] [place] [address] PCP - General 05/16/11 08/19/11 Agustin Ramires MD [address] [place] [address] PCP - General 08/20/11 02/23/13 Lizbet Zhang FNP [address] [place], [place] [id number] PCP - General 02/24/13 03/13/20 Salome Mcarthur NP [address] [facility] [place], [place] [id number] PCP - General 03/14/20 documented as of this encounter
--- OUTSIDE RECORDS SUMMARY | 2024-04-16 15:45 | XMS_ITS | Encounter Summary ---
Author Organization [facility] Address [address] [place] [address] Care Team Providers Care Delivery Analyst Name Role Phone Avel Rivera MD Primary Care Provider Unav ailable Encounter Details Date Type Department Care Team (Late st Contact Info) Description 05/22/2007 Before PRISM Converted Visit (Maple) [facility] - Maple conversion [address] [place] [address] Tiara Mendez MD [phone] [place] [address] Social History Tobacco Use Types Packs/Day Years Used Date Smoking Tobacco: Never Assessed Comments Unknown Sex and Gender Information Value Date Recorded Sex Assigned at Not on file Legal Sex Female 18:18 EST Gender Identity Female 02/14/2022 14:15 EST Sexual Orientation Not on file documented as of this encounter Progress Notes * Tad, Conv Hydraulic Riveter - 02/16/2009 1242 EST [facility] PROGRESS/FOLLOWUP NOTE - 05/22/2007 ANA M Jarquin [...] 08:15 Tiara Mendez MD P Job ID [id number] [facility] Doc ID [id number] cc: documented in this encounter Plan of Treatment Not on file documented as of this encounter Visit Diagnoses Not on filedocumented in this encounter Care Teams Delivery Analyst Relationship Specialty Start Date End Date Avel Rivera MD PCP - General 09/03/08 07/10/09 documented as of this encounter
--- OUTSIDE RECORDS SUMMARY | 2024-04-16 15:45 | XMS_ITS | Encounter Summary ---
Author Organization [facility] Address [address] [place] [address] Care Team Providers Care Faucets Assembler Name Role Phone Avel Rivera MD Primary Care Provider Unav ailable Encounter Details Date Type Department Care Team (Late st Contact Info) Description 05/06/2007 Before PRISM Converted Visit (Maple) [facility] - Maple conversion [address] [place] [address] Maria Elena Falcon MD Social History Tobacco [...] Elena Falcon MD - 02/15/2009 0659 EST [facility] PROGRESS/FOLLOWUP NOTE - 05/06/2007 ANA M Jarquin [...] Maria Elena Falcon MD P Job ID [id number] T: 7:21 A/KAMALA Doc ID [id number] cc: ctd/kamala Doc ID [id number] cc: documented in this encounter Plan of Treatment Not on file documented as of this encounter Visit Diagnoses Not on filedocumented in this encounter Care Teams Faucets Assembler Relationship Specialty Start Date End Date Avel Rivera MD PCP - General 09/03/08 07/10/09 documented as of this encounter
--- OUTSIDE RECORDS SUMMARY | 2024-04-16 15:45 | XMS_ITS | Encounter Summary ---
Author Organization [facility] Address [address] [place] [address] Care Team Providers Care Outdoor Advertising Leasing Agent Name Role Phone Avel Rivera MD [...] Info) Description 06/06/2009 13:30 EST Office Visit [facility] Family Medicine [address] [address] Avel Rivera MD Vertigo; Hypertension; DM (diabetes mellitus) (CMS-HCC) ([facility]); Hyperlipidemia; Lumbar sprain and strain [...] Avel Rivera MD - 06/08/2009 0710 EST [facility] PROGRESS/FOLLOWUP NOTE - 06/06/2009 PROBLEM: Vertigo, hypertension, [...] - KATER[place] Job ID: SM Doc ID: [id number] Ext Doc ID: [id number] cc: * Avel Rivera MD - 06/06/2009 [...] Hypertension Unspecified essential hypertension DM (diabetes mellitus) ([facility]) Type II or unspecified type diabetes mellitus [...] documented as of this encounter Care Teams Outdoor Advertising Leasing Agent Relationship Specialty Start Date End Date Avel Rivera MD PCP - General 09/03/08 07/10/09 documented as of this encounter
--- OUTSIDE RECORDS SUMMARY | 2024-04-16 15:45 | XMS_ITS | Encounter Summary ---
Author Organization [facility] Address [address] [place] [address] Care Team Providers Care Inspector Technician Name Role Phone Avel Rivera MD Primary Care Provider Unav ailable Encounter Details Date Type Department Care Team (Late st Contact Info) Description 07/01/2006 Before PRISM Converted Visit (Maple) [facility] - Maple conversion [address] [place] [address] Tiara Mendez MD [address] [place] [address] Social History Tobacco Use Types Packs/Day Years Used Date Smoking Tobacco: Never Assessed Comments Unknown Sex and Gender Information Value Date Recorded Sex Assigned at Not on file Legal Sex Female 18:18 EST Gender Identity Female 02/14/2022 14:15 EST Sexual Orientation Not on file documented as of this encounter Progress Notes * Tad, Conv Assistant Corporation Counsel - 02/08/2009 1017 EST [facility] PROGRESS/FOLLOWUP NOTE - 07/01/[address] Mrs. Corbett [...] the one her friend went to in [place]. 3. Hypertension, excellently controlled at present. She [...] MD Tiara Mendez MD P Job ID [id number] A/lt Doc ID [id number] cc: documented in this encounter Plan of Treatment Not on file documented as of this encounter Visit Diagnoses Not on filedocumented in this encounter Care Teams Inspector Technician Relationship Specialty Start Date End Date Avel Rivera MD PCP - General 09/03/08 07/10/09 documented as of this encounter
--- OUTSIDE RECORDS SUMMARY | 2024-04-16 15:45 | XMS_ITS | Encounter Summary ---
Author Organization [facility] Address [address] [place] [address] Care Team Providers Care Basket Weaver Name Role Phone Agustin Ramires MD Primary Care Provider [phone] Avel Rivera MD Primary Care Provider Unav ailable Unknown, Provider Primary Care Provider Unava ilable Agustin Ramires MD Primary Care Provider [phone] Kayleigh Peña Primary Care Provider + [phone] Agustin Ramires MD Primary Care Provider [phone] Lizbet Zhang MEDICAL PHYSICS PROFESSOR Primary Care Provider + [phone] Encounter Details Date Type Department Care Team (Late st Contact Info) Description 05/10/2009 Historical Results Only [facility] Lab - Main [place] [address] [place] [address] Leland Boykin MD Social History Tobacco Use [...] (05/10/2009) 05/10/2009 05/10/2009 11: 28 EST Narrative [facility] - 05/11/2009 13:51 EST ----- ------- Name: MILKA MENDIETA ?: 42 ?Age/Sex: 78/F ?Unit#: [id number] ? Loc: SDS ? Status: DEP SDC ?? Reg Date: 05/10/09 ? Pt.Phone Number: ? ----- ------- Specimen: [id number] ?STATUS: SOUT ?Spec Date:05/10/09 ? Physician Copies: ?Leland Boykin MD ?? Tissues: A ?? Urinary Tract (BLADDER DOME) ? CPT: 36514 ?? Units: ??1 ?FINAL DIAGNOSIS ? Bladder, [...] confirmed the above diagnosis. Test Performed by [facility], [address] [place], [place] [id number] Canteen Attendant: Namrata Childs MD PHD ----- ------- Leland Boykin MD PATHOLOGY ORDERABLES Final Resul t [facility] documented in this encounter Visit Diagnoses Not on filedocumented in this encounter Care Teams Basket Weaver Relationship Specialty Start Date End Date Agustin Ramires MD [address] [address] PCP - General 07/11/09 05/16/10 Avel Rivera MD PCP - General 09/03/08 07/10/09 Unknown, MD Nkechi PCP - General 05/17/10 02/07/11 Agustin Ramires MD [address],[facility] 2 [place] [address] PCP - General 02/08/11 05/15/11 Kayleigh Peña PA [address] [place] [address] PCP - General 05/16/11 08/19/11 Agustin Ramires MD [address],[facility] 2 [place] [address] PCP - General 08/20/11 02/23/13 Lizbet Zhang, INDIRA [address] [place], [place] [address] PCP - General 02/24/13 03/13/20 documented as of this encounter
--- OUTSIDE RECORDS SUMMARY | 2024-04-16 15:45 | XMS_ITS | Encounter Summary ---
Author Organization [facility] Address [address] [place] [address] Care Team Providers Care Pens And Pencils Repairer Name Role Phone Kayleigh Peña Primary Care Provider [phone] Reason for Visit * Reason Comments Other incomplete empyting Encounter Details Date Type Department Care Team (Latest Contact Info) Description 05/17/2011 11:00 EST Office Visit [facility] Pelvic Medicine and Reconstructive Surgery - Medical Office [facility] [address] [place] [address] Tim Molina MD [address] [place] [address] Female bladder prolapse (Primary Dx); Rectocele; [...] in this encounter Progress Notes * Tim Molnia MD - 05/21/2011 0709 EST [facility] [address] [place], [place] [id number] Telephone Toll-Free PROGRESS/FOLLOWUP NOTE - 05/17/2011 HISTORY [...] MD - Tim Molina MD - [facility] Job ID: SM Doc ID: [id number] Ext Doc ID: [id number] cc: TOPHER Mackey MD * Tim Molina [...] mg by mouth daily as needed. ??? [place]-3 Fatty Acids-Vitamin E (FISH OIL) 1,000 mg [...] MD * Tim Molina MD - 05/18/2011 7248 EST Dictated. Past Medical history, past surgical [...] Ketones Neg Neg [facility] Specific [place] 1.010 1.001 - 1.035 [facility] Blood Neg Neg [facility] pH 7.5 4.6 - 8.0 [facility] Protein Neg Neg [facility] Urobilinogen 0.2 0.2 - 1.0 E.U./dl [facility] Nitrite Neg Neg [facility] Leuk Esterase Neg Neg [facility] ultimate hoops referee ID [id number] [facility] Comment:[facility] [place] Urine specimen (specimen) 05/17/2011 11:35 EST 05/17/2011 11:44 EST Tim Molina MD POINT OF CARE TEST ORDERABL ES Final Result [facility] [address] [place] [address] documented in this encounter Visit Diagnoses Diagnosis Female bladder prolapse- Primary Cystocele, midline Rectocele Mixed incontinence urge and stress Mixed incontinence urge and stress (male)(female) documented in this encounter Care Teams Pens And Pencils Repairer Relationship Specialty Start Date End Date Kayleigh Peña PA [address] [place] [address] PCP - General 05/16/11 08/19/11 documented as of this encounter
--- OUTSIDE RECORDS SUMMARY | 2024-04-16 15:45 | XMS_ITS | Encounter Summary ---
Author Organization [facility] Address [address] [place] [address] Care Team Providers Care Charter Boat Captain Name Role Phone Agustin Ramires MD Primary Care Provider [phone] Unknown, Provider Primary Care Provider Unava ilable Agustin Ramires MD Primary Care Provider [phone] Kayleigh Peña Primary Care Provider [phone] Agustin Ramires MD Primary Care Provider [phone] Lizbet Zhang RESIDENTIAL TREATMENT COUNSELOR Primary Care Provider + [phone] Encounter Details Date Type Department Care Team (Late st Contact Info) Description 03/08/2010 Historical Results Only [facility] - Main [address] [address] Leland Boykin MD Social History Tobacco Use [...] (03/08/2010) 03/08/2010 03/09/2010 10: 05 EST Narrative [facility] - 03/09/2010 14:09 EST ----- ------- Name: MILKA MENDIETA ?: 42 ?Age/Sex: 78/F ?Unit#: [id number] ? Loc: LAB.OPX ? Status: REG REF ?? Reg Date: 03/08/10 ? Pt.Phone Number: ? ----- ------- Specimen: [id number] ?STATUS: SOUT ?Spec Date:03/08/10 ? Physician Copies: ?Leland Boykin MD ?? Tissues: ? Urine (CLEAN CATCH URINE-VOIDED) ? CPT: 98468 ?? Units: ??1 ----- ------- ?? NON CORPORATE TAX MANAGER CYTOLOGY DIAGNOSIS Urine, voided: - No malignant [...] diagnosis. Test Performed by [facility], [address] [place] [address] Job Placement Counselor: Namrata Childs MD PHD ----- ------- Leland Boykin MD PATHOLOGY ORDERABLES Final Resul t [facility] documented in this encounter Visit Diagnoses Not on filedocumented in this encounter Care Teams Charter Boat Captain Relationship Specialty Start Date End Date Agustin Ramires MD [address],[facility] 2 [place] [address] PCP - General 07/11/09 05/16/10 Unknown, Provider, PCP - General 05/17/10 02/07/11 Agustin Ramires MD [address],[facility] 2 [place] [address] PCP - General 02/08/11 05/15/11 Kayleigh Peña PA [address] [facility] [address] [place] [address] PCP - General 05/16/11 08/19/11 Agustin Ramires MD [address],[facility] 2 [place] [address] PCP - General 08/20/11 02/23/13 Lizbet Zhang FNP [address] [place] [address] PCP - General 02/24/13 03/13/20 documented as of this encounter
--- OUTSIDE RECORDS SUMMARY | 2024-04-16 15:45 | XMS_ITS | Encounter Summary ---
Author Organization [facility] Address [address] [place] [address] Care Team Providers Care Machine Operator Helper Name Role Phone Agustin Ramires MD Primary Care Provider [phone] Kayleigh Peña Primary Care Provider [phone] Agustin Ramires MD Primary Care Provider [phone] Lizbet Zhang Primary Care Provider + [phone] Encounter Details Date Type Department Care Team (Late st Contact Info) Description 04/11/2011 Historical Results Only [facility] Lab - Main [place] [address] [place] [address] Leland Boykin MD Social History Tobacco Use [...] MILKA MENDIETA ?: [birth year] ?Age/Sex: 78/F ?Unit#: [id number] ? Loc: LAB.OPX ? Status: REG REF ?? Reg Date: 04/11/11 ? Pt.Phone Number: ? ----- ------- Specimen: [id number] ?STATUS: SOUT ?Spec Date:04/11/11 ? Physician Copies: ?Leland Boykin MD ?? Tissues: ? Urine (VOID) ? Kayleigh Peña CPT: 21275 ?? Units: ??1 ----- ------- ?? NON CORK GRINDER CYTOLOGY DIAGNOSIS Urine, voided Benign urothelial cells, [...] confirmed the above diagnosis. Test Performed by [facility], [address] [place] [address] Fuel Conversion Technician: Namrata Childs MD PHD ----- ------- us Leland Boykin MD PATHOLOGY ORDERABLES Final Resul t [facility] documented in this encounter Visit Diagnoses Not on filedocumented in this encounter Care Teams Machine Operator Helper Relationship Specialty Start Date End Date Agustin Ramires MD [address],[facility] 2 [place] [address] PCP - General 02/08/11 05/15/11 Kayleigh Peña PA [address] [facility] [address] [place] [address] PCP - General 05/16/11 08/19/11 Agustin Ramires MD [address],[facility] 2 [place] [address] PCP - General 08/20/11 02/23/13 Lizbet Zhang FNP [address] [place] [id number] PCP - General 02/24/13 03/13/20 documented as of this encounter
--- OUTSIDE RECORDS SUMMARY | 2024-04-16 15:45 | XMS_ITS | Encounter Summary ---
Author Organization [facility] Address [address] [place] [address] Care Team Providers Care Mis Director Name Role Phone Avel Rivera MD Primary Care Provider Unav ailable Encounter Details Date Type Department Care Team (Late st Contact Info) Description 06/24/2008 Before PRISM Converted Visit (Maple) [facility] - Maple conversion [address] [place] [address] Dhruv Milian MD Social History Tobacco Use [...] MENDIETA, MILKA F ? Accession #: ? [id number] ? : ? 1940 (Age: 68) ??F ? Collect Date: ? 06/24/2008 ? Location: ? [facility] ? Receive Date: ? 06/24/2008 ? Provider: DHRUV MILIAN MD ? Copy to: CRYSTAL RATLIFF MD ? Final Pathologic Diagnosis: ? A. ??Bladder, base of previous tumor, biopsies ([facility] [id number] A D1-D2; ? 2008): ? 1. 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 dystrophic calcification and reactive change. See comment. ? 2. ? Muscularis propria is identified. ? B. ?? Bladder, inferior to main tumor, biopsy ([facility] [id number]; B D1-D2; ? 2008) ? 1. ?? Urothelial hyperplasia with chronic inflammation and reactive ? epithelial changes. ??See ? comment. ? 2. ?? Muscularis propria is identified. ? C. ?Bladder, tumor, resection ([place] [id number]; 03/19/2008): ? 1. ?? Low grade papillary [...] diagnosis. ? Specimen(s) Received: ? [facility] [id number] (4), [id number] (1) ? Clinical History: ? Bladder cancer ? Gross Description: ? Five slides are received for review from [facility], one each labelled [id number] A D1, [id number] A D2, [id number] B D1, [id number] B D2, ? [id number]. ? End of Report ? [facility] 06/24/2008 06/24/2008 14: 46 EDT us Dhruv Milian MD PATHOLOGY ORDERABLES Final Resul t Performing Organization Address City/State/[facility] Co de Phone Number [facility] [address] [place] [address] documented in this encounter Visit Diagnoses Not on filedocumented in this encounter Care Teams Mis Director Relationship Specialty Start Date End Date Avel Rivera MD PCP - General 09/03/08 07/10/09 documented as of this encounter
--- OUTSIDE RECORDS SUMMARY | 2024-04-16 15:45 | XMS_ITS | Encounter Summary ---
Author Organization [facility] Address [address] [place] [address] Care Team Providers Care Water Pump Operator Name Role Phone Unknown, Provider Primary Care Provider Agustin Anna MD Primary Care Provider [phone] Kayleigh Peña Primary Care Provider [phone] Agustin Ramires MD Primary Care Provider [phone] Lizbet ZhangP Primary Care Provider [phone] Encounter Details Date Type Department Care Team (Late st Contact Info) Description 09/13/2010 Historical Results Only [facility] Lab - Main [address] [address] Leland Boykin MD Social History Tobacco Use [...] (09/13/2010) 09/13/2010 09/14/2010 9:1 8 EDT Narrative [facility] - 09/19/2010 16:59 EDT ----- ------- Name: MILKA MENDIETA ?: 42 ?Age/Sex: 78/F ?Unit#: [id number] ? Loc: LAB.OPX ? Status: REG REF ?? Reg Date: 09/14/10 ? Pt.Phone Number: ? ----- ------- Specimen: [id number] ? STATUS: SOUT ?Spec Date:09/13/10 ? Physician Copies: ?Leland Boykin MD ?? Tissues: ? Urine (VOID) ? CPT: 24132 ?? Units: ??1 ----- ------- ?? NON BRAZING FURNACE OPERATOR CYTOLOGY DIAGNOSIS Urine, voided: - Cellular specimen [...] confirmed the above diagnosis. Test Performed by [facility], [address] [place] [address] Scrap Crusher: Namrtaa Childs MD PHD ----- ------- Leland Boykin MD PATHOLOGY ORDERABLES Final Resul t [facility] documented in this encounter Visit Diagnoses Not on filedocumented in this encounter Care Teams Water Pump Operator Relationship Specialty Start Date End Date Unknown, Provider, PCP - General 05/17/10 02/07/11 Agustin Ramires MD [address],[facility] 2 [place] [address] PCP - General 02/08/11 05/15/11 Kayleigh Peña PA [address] [place] [address] PCP - General 05/16/11 08/19/11 Agustin Ramires MD [address],[facility] 2 [place] [address] PCP - General 08/20/11 02/23/13 Lizbet Zhang FNP [address] [place], [place] [id number] PCP - General 02/24/13 03/13/20 documented as of this encounter
--- OUTSIDE RECORDS SUMMARY | 2024-04-16 15:45 | XMS_ITS | Encounter Summary ---
Author Organization [facility] Address [address] [place] [address] Care Team Providers Care Fixer Boarding Room Name Role Phone Agustin Ramires MD Primary Care Provider [phone] Unknown, Provider Primary Care Provider Unava ilable Agustin Ramires MD Primary Care Provider [phone] Kayleigh Peña Primary Care Provider [phone] Agustin Ramires MD Primary Care Provider [phone] Lizbet Zhang SOLID WASTE COLLECTOR Primary Care Provider + [phone] Encounter Details Date Type Department Care Team (Late st Contact Info) Description 08/12/2009 Historical Results Only [facility] Lab - Main [address] [address] Leland Boykin MD Social History Tobacco Use [...] (08/12/2009) 08/12/2009 08/14/2009 7:5 2 EDT Narrative [facility] - 08/16/2009 12:46 EDT ----- ------- Name: MILKA MENDIETA ?: 42 ?Age/Sex: 78/F ?Unit#: [id number] ? Loc: LAB.OPX ? Status: REG REF ?? Reg Date: 08/12/09 ? Pt.Phone Number: ? ----- ------- Specimen: [id number] ? STATUS: SOUT ?Spec Date:08/12/09 ? Physician Copies: ?Leland Boykin MD ?? Tissues: ? Urine (VOID) ? CPT: 75906 ?? Units: ??1 ----- ------- ?? NON APPRENTICESHIP REPRESENTATIVE CYTOLOGY DIAGNOSIS Urine, voided: - No malignant [...] diagnosis. Test Performed by [facility], [address] [place] [address] Director: Namrata Childs MD PHD ----- ------- Leland Boykin MD PATHOLOGY ORDERABLES Final Resul t [facility] documented in this encounter Visit Diagnoses Not on filedocumented in this encounter Care Teams Fixer Boarding Room Relationship Specialty Start Date End Date Agustin Ramires MD [address] 2 [place] [address] PCP - General 07/11/09 05/16/10 Unknown, Provider, PCP - General 05/17/10 02/07/11 Agustin Ramires MD On license of [facility] [address] ,[facility] 2 [place] [address] PCP - General 02/08/11 05/15/11 Kayleigh Peña PA [address] [facility] [address] [place] [address] PCP - General 05/16/11 08/19/11 Agustin Ramires MD On license of [facility] [address] ,[facility] 2 [place] [address] PCP - General 08/20/11 02/23/13 Lizbet Zhang FNP [address] [place] [address] PCP - General 02/24/13 03/13/20 documented as of this encounter
--- OUTSIDE RECORDS SUMMARY | 2024-04-16 15:45 | XMS_ITS | Encounter Summary ---
Author Organization [facility] Address [address] [place] [address] Care Team Providers Care Still Runner Name Role Phone Avel Rivera MD Primary Care Provider Unav ailable Encounter Details Date Type Department Care Team (Late st Contact Info) Description 08/27/2007 Office Visit [facility] Ophthalmology - [place] [address] [place] [address] Tamica Maldonado MD [address] [place] [address] Discharge Disposition: Auto Discharge Social History [...] - 12/30/2008 0122 EDT DIVISION OF OPHTHALMOLOGY [facility] CONSULTATION - 08/27/2007 Adi Martinez MD [address] [place] [address] [address] [place] [address] Dear Adi: Thank you for referring Milka [...] which we will proceed with today.Because Ms. Corebtt comes from the [facility], she has asked if she may follow up with you following the laser and I think this is very reasonable.If you have any questions or concerns, please do not hesitate to contact me. Yours sincerely, Signed by Tamica Maldonado MD 09/04/2007 08:58 Tamica Maldonado MD [facility] - Retina and Vitreous Service [address] [place] [address] - Tamica Maldonado MD - DV Job ID: [id number] Doc ID: [id number] cc: Adi Martinez MD documented in this encounter Plan of Treatment Not on file documented as of this encounter Visit Diagnoses Not on filedocumented in this encounter Care Teams Still Runner Relationship Specialty Start Date End Date Avel Rivera MD PCP - General 09/03/08 07/10/09 documented as of this encounter
--- OUTSIDE RECORDS SUMMARY | 2024-04-16 15:45 | XMS_ITS | Encounter Summary ---
Author Organization [facility] Address [address] [place] [address] Care Team Providers Care Well Digger Name Role Phone Avel Rivera MD Primary Care Provider Unav ailable Encounter Details Date Type Department Care Team (Late st Contact Info) Description 03/09/[address] [address] Avel Rivera MD Hypertension; DM (Diabetes Mellitus) ([facility]); PPD Positive; IBS (Irritable Bowel Syndrome); Hyperlipidemia; [...] Hypertension Unspecified essential hypertension DM (diabetes mellitus) ([facility]) Type II or unspecified type diabetes mellitus [...] 05/04/2009 added in this encounter Care Teams Well Digger Relationship Specialty Start Date End Date Avel Rivera MD PCP - General 09/03/08 07/10/09 documented as of this encounter
--- OUTSIDE RECORDS SUMMARY | 2024-04-16 15:45 | XMS_ITS | Encounter Summary ---
Author Organization Health system Address [address] [place] [address] Care Team Providers Care Special Education Educational Assistant Name Role Phone Avel Rivera MD Primary Care Provider Unav ailable Encounter Details Date Type Department Care Team (Late st Contact Info) Description 11/05/2007 Before PRISM Converted Visit (Maple) [facility] - Maple conversion [address] [place] [address] Avel Rivera MD Social History Tobacco Use Types Packs/Day Years Used Date Smoking Tobacco: Never Assessed Comments Unknown Sex and Gender Information Value Date Recorded Sex Assigned at Not on file Legal Sex Female 18:18 EST Gender Identity Female 02/14/2022 14:15 EST Sexual Orientation Not on file documented as of this encounter Progress Notes * Avel Rivera MD - 01/07/2009 1202 EDT [facility] PROGRESS/FOLLOWUP NOTE - 11/05/2007 PROBLEM Foot [...] 12:03 Avel Rivera MD P Job ID [id number] P/FELY Doc ID [id number] cc: cc: documented in this encounter Plan of Treatment Not on file documented as of this encounter Visit Diagnoses Not on filedocumented in this encounter Care Teams Special Education Educational Assistant Relationship Specialty Start Date End Date Avel Rivera MD PCP - General 09/03/08 07/10/09 documented as of this encounter
--- OUTSIDE RECORDS SUMMARY | 2024-04-16 15:45 | XMS_ITS | Encounter Summary ---
Author Organization [facility] Address [address] [place] [address] Care Team Providers Care Environmental Protection Inspector Name Role Phone Avel Rivera MD Primary Care Provider Unav ailable Reason for Visit * Reason Onset Date Comments Other 05/18/2009 Encounter Details Date Type Department Care Team (Late st Contact Info) Description 05/18/[address] [phone] Avel Rivera MD Other Social History Tobacco [...] was sent in. She is checking with [employer] * Telephone Encounter - Janusz Stefany - 05/18/2009 1310 EST PATIENT IS STILL WAITING FOR THIS TO BE CALLED INTO [facility]. THEY ARE THERE WAITING NOW FOR THE AMITRIPTYLENE. * Telephone Encounter - Christina Rudd - 05/18/2009 1214 EST Pt called from [employer] saying her Amitriptyline has not been called in there. She can be reached at [phone] ext [phone]. documented in this encounter Plan of Treatment Not on file documented as of this encounter Visit Diagnoses Not on filedocumented in this encounter Discontinued Medications Medication Sig Discontinue Reason Start Date End Da te amitriptyline (ELAVIL) 100 mg tablet Take 1 Tab by mouth at bedtime. Reorder 05/04/2009 05/18/2009 documented as of this encounter Care Teams Environmental Protection Inspector Relationship Specialty Start Date End Date Avel Rivera MD PCP - General 09/03/08 07/10/09 documented as of this encounter
--- OUTSIDE RECORDS SUMMARY | 2024-04-16 15:45 | XMS_ITS | Encounter Summary ---
Author Organization [facility] Address [address] [place] [address] Care Team Providers Care Recruitment Assistant Name Role Phone Avel Rivera MD Primary Care Provider Unav ailable Encounter Details Date Type Department Care Team (Late st Contact Info) Description 06/02/2007 Before PRISM Converted Visit (Maple) [facility] - Maple conversion [address] [place] [address] Tiara Mendez MD [phone] [place] [address] Social History Tobacco Use Types Packs/Day Years Used Date Smoking Tobacco: Never Assessed Comments Unknown Sex and Gender Information Value Date Recorded Sex Assigned at Not on file Legal Sex Female 18:18 EST Gender Identity Female 02/14/2022 14:15 EST Sexual Orientation Not on file documented as of this encounter Progress Notes * Tad, Conv Drill Rig Operator Helper - 12/29/2008 2959 EDT [facility] PROGRESS/FOLLOWUP NOTE - 06/02/2007 SUBJECTIVE comes in [...] 11:10 Tiara Mendez MD P Job ID [id number] T: 1:22 P/DIS Doc ID [id number] cc: P Job ID [id number] P/dis Doc ID [id number] cc: documented in this encounter Plan of Treatment Not on file documented as of this encounter Visit Diagnoses Not on filedocumented in this encounter Care Teams Recruitment Assistant Relationship Specialty Start Date End Date Avel Rivera MD PCP - General 09/03/08 07/10/09 documented as of this encounter
--- OUTSIDE RECORDS SUMMARY | 2024-04-16 15:45 | XMS_ITS | Encounter Summary ---
Author Organization [facility] Address [address] [place] [address] Care Team Providers Care Mammalogist Name Role Phone Avel Rivera MD Primary Care Provider Unav ailable Encounter Details Date Type Department Care Team (Late st Contact Info) Description 03/30/2005 Before PRISM Converted Visit (Maple) [facility] - Maple conversion [address] [place] [address] Luis Fernando Kinsey MD [address] [place] [phone] Social History Tobacco Use Types Packs/Day Years Used Date Smoking Tobacco: Never Assessed Comments Unknown Sex and Gender Information Value Date Recorded Sex Assigned at Not on file Legal Sex Female 18:18 EST Gender Identity Female 02/14/2022 14:15 EST Sexual Orientation Not on file documented as of this encounter Progress Notes * Luis Fernando Kinsey - 06/09/20092105 EST [facility] PROGRESS/FOLLOWUP NOTE - 03/30/2005 REASON FOR [...] Kinsey MD A - clr Job ID: [id number] Document ID: [id number] cc: documented in this encounter Plan of Treatment Not on file documented as of this encounter Visit Diagnoses Not on filedocumented in this encounter Care Teams Mammalogist Relationship Specialty Start Date End Date Avel Rivera MD PCP - General 09/03/08 07/10/09 documented as of this encounter
--- OUTSIDE RECORDS SUMMARY | 2024-04-16 15:45 | XMS_ITS | Encounter Summary ---
Author Organization [facility] Address [address] [place] [address] Care Team Providers Care Master Certified Rv Technician Name Role Phone Avel Rivera MD Primary Care Provider Unav ailable Encounter Details Date Type Department Care Team (Late st Contact Info) Description 12/15/2007 Before PRISM Converted Visit (Maple) [facility] - Maple conversion [address] [place] [address] Avel Rivera MD Social History Tobacco Use Types Packs/Day Years Used Date Smoking Tobacco: Never Assessed Comments Unknown Sex and Gender Information Value Date Recorded Sex Assigned at Not on file Legal Sex Female 18:18 EST Gender Identity Female 02/14/2022 14:15 EST Sexual Orientation Not on file documented as of this encounter Progress Notes * Avel Rivera MD - 10/30/2008 0646 EDT [facility] PROGRESS/FOLLOWUP NOTE - 01/12/2008 PROBLEM Bronchitis, [...] 11:18 Avel Rivera MD P Job ID [id number] /[facility] Doc ID [id number] cc: * Avel Rivera MD - 10/30/2008 0513 EDT [facility] PROGRESS/FOLLOWUP NOTE - 12/15/2007 PROBLEM Cough. SUBJECTIVE [...] 17:31 Avel Rivera MD A Job ID [id number] A/[facility] Doc ID [id number] cc: documented in this encounter Plan of Treatment Not on file documented as of this encounter Visit Diagnoses Not on filedocumented in this encounter Care Teams Master Certified Rv Technician Relationship Specialty Start Date End Date Avel Rivera MD PCP - General 09/03/08 07/10/09 documented as of this encounter
--- OUTSIDE RECORDS SUMMARY | 2024-04-16 15:45 | XMS_ITS | Encounter Summary ---
Author Organization [facility] Address [address] [place] [address] Care Team Providers Care Cocktail Waitress Name Role Phone Avel Rivera MD Primary Care Provider Unav ailable Encounter Details Date Type Department Care Team (Late st Contact Info) Description 07/28/2007 Before PRISM Converted Visit (Maple) [facility] - Maple conversion [address] [place] [address] Sharifa Britton, MITER GRINDER OPERATOR [address] [facility] [address] [place] [address] Social History Tobacco Use Types Packs/Day Years Used Date Smoking Tobacco: Never Assessed Comments Unknown Sex and Gender Information Value Date Recorded Sex Assigned at Not on file Legal Sex Female 18:18 EST Gender Identity Female 02/14/2022 14:15 EST Sexual Orientation Not on file documented as of this encounter Progress Notes * Sharifa Britton MD - 12/31/2008 0141 EDT [facility] PROGRESS/FOLLOWUP NOTE - 07/28/2007 ANA M Jarquin [...] 08/04/2007 14:52 INDIRA Cruz - INDIRA Cruz [facility] Job ID: [id number] Document ID: [id number] cc: documented in this encounter Plan of Treatment Not on file documented as of this encounter Visit Diagnoses Not on filedocumented in this encounter Care Teams Cocktail Waitress Relationship Specialty Start Date End Date Avel Rivera MD PCP - General 09/03/08 07/10/09 documented as of this encounter
--- OUTSIDE RECORDS SUMMARY | 2024-04-16 15:45 | XMS_ITS | Encounter Summary ---
Author Organization [facility] Address [address] [place] [address] Care Team Providers Care Chief Underwriter Name Role Phone Avel Rivera MD Primary Care Provider Unav ailable Encounter Details Date Type Department Care Team (Late st Contact Info) Description 06/14/2005 Before PRISM Converted Visit (Maple) [facility] - Maple conversion [address] [place] [address] Tiara Mendez MD [phone] [place] [address] Social History Tobacco Use Types Packs/Day Years Used Date Smoking Tobacco: Never Assessed Comments Unknown Sex and Gender Information Value Date Recorded Sex Assigned at Not on file Legal Sex Female 18:18 EST Gender Identity Female 02/14/2022 14:15 EST Sexual Orientation Not on file documented as of this encounter Progress Notes * Tad, Conv Dry Pan Feeder - 03/17/2009 2341 EST [facility] PROGRESS/FOLLOWUP NOTE - 06/14/2005 SUBJECTIVE: Milka is here because she has been ill for the past week to two. She complains of nasal congestion, sore throat, headache, otalgia, and ???pressure in her lungs.?? She has not really been able to bring up anything when coughing. She has tried several cjaz-igz-kskqima medications without much improvement. She also complains [...] 875 b.i.d. for ten days. Continue with epfy-tge-hukcrit medications. Problem #2: Left upper quadrant pain intermittently which is likely gastrointestinal in origin. PLAN: I will have her try either an H2 reva or PPI gaiu-esn-iohshwb to see if her symptoms improve. Problem [...] Mendez MD P - clr Job ID: [id number] Document ID: [id number] cc: documented in this encounter Plan of Treatment Not on file documented as of this encounter Visit Diagnoses Not on filedocumented in this encounter Care Teams Chief Underwriter Relationship Specialty Start Date End Date Avel Rivera MD PCP - General 09/03/08 07/10/09 documented as of this encounter
--- OUTSIDE RECORDS SUMMARY | 2024-04-16 15:45 | XMS_ITS | Encounter Summary ---
Author Organization [facility] Address [address] [place] [address] Care Team Providers Care Jacquard Loom Carpet Weaver Name Role Phone Agustin Ramires MD Primary Care Provider [phone] Encounter Details Date Type Department Care Team (Late st Contact Info) Description 08/20/2011 Pre-Procedure Orders Encounter [facility] - Medical Office [facility] [address] [place] [address] Tim Molina MD [address] [place] [phone] Social History Tobacco Use Types Packs/Day [...] on filedocumented in this encounter Care Teams Jacquard Loom Carpet Weaver Relationship Specialty Start Date End Date Agustin Ramires MD [address] [place] [address],[facility] [[email or web address] [address] [place] [address] PCP - General 08/20/11 02/23/13 documented as of this encounter
--- OUTSIDE RECORDS SUMMARY | 2024-04-16 15:45 | XMS_ITS | Encounter Summary ---
Author Organization [facility] Address [address] [place] [address] Care Team Providers Care Firer Kiln Name Role Phone Agustin Ramires MD Primary Care Provider [phone] Encounter Details Date Type Department Care Team (Late st Contact Info) Description 04/21/2010 Abstract Used for ABSTRACTING Data [phone] Agustin Ramires MD [address] [...] on filedocumented in this encounter Care Teams Firer Kiln Relationship Specialty Start Date End Date Agustin Ramires MD [address] [place] [address] PCP - General 07/11/09 05/16/10 documented as of this encounter
--- OUTSIDE RECORDS SUMMARY | 2024-04-16 15:45 | XMS_ITS | Encounter Summary ---
Author Organization [facility] Address [address] [place] [address] Care Team Providers Care Watch Assembly Inspector Name Role Phone Agustin Ramires MD Primary Care Provider [phone] Unknown, Provider Primary Care Provider Unava ilable Agustin Ramires MD Primary Care Provider [phone] Kayleigh Pñea Primary Care Provider [phone] Agustin Ramires MD Primary Care Provider [phone] Lizbet Zhang LICENSED MARINE ENGINEER Primary Care Provider [phone] Encounter Details Date Type Department Care Team (Late st Contact Info) Description 05/15/2010 Historical Results Only [facility] - [address] [place] [address] [place], [place] [address] Jens Deleon MD [facility] [address] [place] [address] Social History Tobacco Use Types [...] (05/15/2010) 05/15/2010 05/15/2010 12: 46 EST Narrative [facility] - 05/16/2010 10:58 EST ----- ------- Name: MILKA MENDIETA ?: 42 ?Age/Sex: 78/F ?Unit#: [id number] ? Loc: END ? Status: DEP CLI ?? Reg Date: 05/15/10 ? Pt.Phone Number: ? ----- ------- Specimen: [id number] ?STATUS: SOUT ?Spec Date:05/15/10 ? Physician Copies: ?Jens Deleon MD ? Tissues: A ?? Gastrointestinal Tract (PROXIMAL ASCENDING COLON) ?Kayleigh PeñaMelida CPT: 22025 ?? Units: ??1 ?FINAL DIAGNOSIS ? Proximal [...] diagnosis. Test Performed by [facility], [address] [place] [phone] Paperboard Boxes Estimator: Namrata Childs MD PHD ----- ------- us Jens Deleon MD PATHOLOGY ORDERABLES Final Resul t [facility] documented in this encounter Visit Diagnoses Not on filedocumented in this encounter Care Teams Watch Assembly Inspector Relationship Specialty Start Date End Date Agustin Ramires MD [address] [phone] PCP - General 07/11/09 05/16/10 Unknown, MD Nkechi PCP - General 05/17/10 02/07/11 Agustin Ramires MD [address] [place] [phone] PCP - General 02/08/11 05/15/11 Kayleigh Peña PA [address] [place] [address] PCP - General 05/16/11 08/19/11 Agustin Ramires MD [address] [address] [place] [phone] PCP - General 08/20/11 02/23/13 Lizbet Zhang, INDIRA [address] [place], [place] [address] PCP - General 02/24/13 03/13/20 documented as of this encounter
--- OUTSIDE RECORDS SUMMARY | 2024-04-16 15:45 | XMS_ITS ---
Author Organization Unknown Address [address] [place] [phone] Phone Care Team Providers Care Information Analyst Name Role Phone KATHIE ARTEAGA MD Attending Unavailable SALLIE DENISE MD ER Unavailable JOHN PETERSON Primary Unavailable Results TSH THYROID STIMULATING HORM ONE - Collect Date/Time: 10/03/2020 14:03 [facility] ID: [id number] [address] [place] [address], [address] LOINC: 3014-8 Test Value Unit Reference Range Code Code System Flag TSH 1.863 uIU/mL L=0.360 H=3.740 3014-8 LOINC TROPONIN-I ADM. - Collect Da te/Time: 10/03/2020 14:03 [facility] ID: [id number] [address] [place] [address], [address] LOINC: 77186-8 Test Value Unit Reference Range Code Code System Flag TROPONIN-I < 0.017 ng/mL L=0.000 H=0.060 94095-8 LOINC COMPREHENSIVE METABOLIC PANE L (CMP) - Collect Date/Time: 10/03/2020 14:03 [facility] ID: [id number] [address] [place] [address], [address] LOINC: 75023-1 Test Value Unit Reference Range Code Code [...] H=34 2028-9 LOINC ANION GAP 8.8 mmol/L 38015-0 LOINC CALCIUM SERUM 9.6 mg/dL L=8.2 H=10.2 74857-5 LOINC BILIRUBIN TOTAL 0.6 mg/dL L=0.0 H=1.3 1975-2 LOINC ALK. PHOS. 87 U/L L=46 H=116 6768-6 LOINC SGOT (AST) 22 U/L L=15 H=37 1920-8 LOINC SGPT (ALT) 33 U/L L=12 H=78 1742-6 LOINC TOTAL PROTEIN 7.3 gm/dL L=6.0 H=8.0 2885-2 LOINC ALBUMIN 3.9 gm/dL L=3.4 H=5.0 1751-7 LOINC AGE 80 years eGFR (non-Afr.Amer.) 76 mL/min 06169-8 LOINC eGFR (Afr-Congolese) 92 mL/min 11495-6 LOINC CBC W/ DIFFERENTIAL - Collec t Date/Time: 10/03/2020 14:03 [facility] ID: [id number] [address] [place], [place], [address] LOINC: 31029-9 Test Value Unit Reference Range Code Code [...] D Saturday, October 03, 2020 2:42:30 PM [id number] Electronically Reviewed and Signed By: DYLAN SHER M.D. RADIOLOGIST 10/05/20 08:11 Copy for: SALLIE DENISE MD via modem Copy for: KATHIE ARTEAGA MD via modem DISCHARGED Social History Type Status Start Date End Date Code Code Syst em Smoking History Never smoker (Never Smoked) 486177081 SNOMED CT Sex Female Medications Medication Start Date End Date Route Frequency Dose Code Code System Medication Instructions Home Meds Amitriptyline 50MG Oral Tablet 08/20/2019 01/02/2022 ORAL BEDTIME 50 MILLIGRAMS 080294 RxNorm TAKE 50 MILLIGRAMS ORAL BEDTIME Atorvastatin Calcium 20MG Oral Tablet 08/20/2019 Unknown ORAL BEDTIME 20 MILLIGRAMS 470056 RxNorm TAKE 20 MILLIGRAMS ORAL BEDTIME Fish Oil 1000MG Oral Capsule, Liquid Filled 08/20/2019 03/18/2024 ORAL DAILY 3 CAPSULE 509967 RxNorm TA KE 3 CAPSULE ORAL DAILY Gabapentin 800MG Oral Tablet 08/20/2019 03/18/2024 ORAL TWICE A DAY 1 TABLET 704250 RxNorm TAKE 1 TABLET ORAL TWICE A DAY Lisinopril 20MG Oral Tablet 08/20/2019 03/18/2024 ORAL DAILY 20 MILLIGRAMS 039942 RxNorm TAKE 20 MILLIGRAMS ORAL DAILY Loratadine 10MG Oral Tablet 08/20/2019 01/02/2022 ORAL DAILY 10 MILLIGRAMS 791157 RxNorm TAKE 10 MILLIGRAMS ORAL DAILY Multiple Vitamin Formula Oral Tablet 08/20/2019 03/18/2024 ORAL DAILY 1 unit(s) 4432011 RxNorm TAKE 1 E ACH ORAL DAILY Pramipexole Dihydrochlorid e 0.125MG Oral Tablet 08/20/2019 09/30/2023 ORAL BEDTIME 2 TABLET 436327 RxNorm TAKE 2 TABLET ORAL BEDTIME Probiotic 250MG Oral Capsule 08/20/2019 01/02/2022 ORAL DAILY 3 TABLET 612718 RxNorm TAKE 3 TABLET ORAL DAILY glipiZIDE 10MG Oral Tablet, Extended Release 08/20/2019 Unknown ORAL DAILY 10 MILLIGRAMS 223165 RxNorm TAKE 10 MILLIGRAMS ORAL DAILY metFORMIN HCl 1000MG Oral Tablet 08/20/2019 Unknown ORAL TWICE A DAY WITH FOOD 1000 MILLIGRAMS 968751 RxNorm TAKE 1000 MILLIGRAMS ORAL TWICE A DAY WITH FOOD Cephalexin 500MG Oral Tablet 08/20/2019 01/02/2022 ORAL THREE TIMES A DAY 1 TABLET 347358 RxNorm TAKE 1 TABLET ORAL THREE TIMES A DAY Keflex 500MG Oral Capsule 01/02/2022 09/30/2023 ORAL THREE TIMES A DAY 1 CAPSULE 740885 RxNorm TAKE 1 CAPSULE ORAL THREE TIMES A DAY Nystatin 242918B/1ML Oral Suspension 01/02/2022 09/30/2023 ORAL FOUR TIMES A DAY 5 mL 241559 RxNorm TAKE 5 mL ORAL FOUR TIMES A DAY Cephalexin 500MG Oral Tablet 03/17/2024 03/19/2024 ORAL TWICE A DAY 1 TABLET 730460 RxNorm TAKE 1 TABLET ORAL TWICE A DAY x 7 days Acetaminophen 500MG Oral Tablet 03/18/2024 03/18/2024 ORAL NEEDED EVERY 6 HOURS 2 TABLET 249200 RxNorm TAKE 2 TABLET (OR 3 TABLETS regular strength 325mg) ORAL EVERY 6 HOURS FOR 1-2 DAYS THEN NEEDED FOR Fever/Pain (NEXT DOSES 6AM AND 12 NOON) Ibuprofen 200MG Oral Tablet 03/18/2024 03/18/2024 ORAL EVERY 6 HOURS 2 TABLET 124170 RxNorm TAKE 2 TABLET ORAL EVERY 6 HOURS FOR 24 HOURS THEN NEEDED. (NEXT DOSES at 4AM AND 10AM) Aspirin 81MG Oral Tablet, Enteric Coated 03/19/2024 Unknown ORAL DAILY 81 MILLIGRAMS 983725 RxNorm TAKE 81 MILLIGRAMS ORAL DAILY Carvedilol 6.25MG Oral Tablet 03/19/2024 Unknown ORAL TWICE A DAY 6.25 MILLIGRAMS 976582 RxNorm TAKE 6.25 MILLIGRAMS ORAL TWICE A DAY Fish Oil [place]-3 1000 MG Oral Capsule, Liquid Filled 03/19/2024 Unknown ORAL DAILY 1000 MG RxNorm TAKE 10 00 MG ORAL DAILY Gabapentin 600MG Oral Tablet 03/19/2024 Unknown ORAL TWICE A DAY 600 MILLIGRAMS 322860 RxNorm TAKE 600 MILLIGRAMS ORAL TWICE A DAY Lisinopril 10MG Oral Tablet 03/19/2024 Unknown ORAL DAILY 10 MILLIGRAMS 787870 RxNorm TAKE 10 MILLIGRAMS ORAL DAILY Multiple [...] Tablet 03/19/2024 Unknown ORAL BEDTIME 0.5 MILLIGRAMS 820496 RxNorm TAKE 0.5 MILLIGRAMS ORAL BEDTIME Ventolin HFA 0.09MG/1Actuat ion Inhalation Suspension 03/19/2024 Unknown INHAL ATION NEEDED EVERY 4 HOURS 2 unit(s) 511048 RxNorm 2 EACH INHALATION NEEDED EVERY 4 HOURS Victoza 6MG/1ML Subcutaneous Solution 03/19/2024 Unknown SUBCU TANEO US 1.8 MILLILITERS 633955 RxNorm INJECT 1.8 MILLILITERS SUBCUTANEOU S Cefdinir [...] Code Code System URINARY TRACT INFECTION active 024606 05 SNOMED-CT HYPOTENSION active 36365424 SNOMED-C T HYPOKALEMIA active 48862840 SNOMED-C T SEPSIS active 95041283 SNOMED-CT CIRRHOSIS - NON-ALCOHOLIC 01/02/2022 resolved 266 557268 SNOMED-CT HTN 08/20/2019 resolved 16086483 SNOMED-CT HIGH CHOLESTEROL 10/01/2023 resolved 13913985 SN OMED-CT PERSONAL HISTORY OF BLADDER CA 08/20/2019 resolved 747005277 SNOMED-CT NON-INSULIN DEPENDENT DIABETES MELLITUS 08/20/2019 resolved 37616262 SNOMED-CT 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
--- OUTSIDE RECORDS SUMMARY | 2024-04-16 15:45 | XMS_ITS | Encounter Summary ---
Author Organization [facility] Address [address] [place] [address] Care Team Providers Care Dye Padder Operator Name Role Phone Avel Rivera MD Primary Care Provider Unav ailable Encounter Details Date Type Department Care Team (Late st Contact Info) Description 04/25/2007 Before PRISM Converted Visit (Maple) [facility] - Maple conversion [address] [place] [address] Tiara Mendez MD [phone] [place] [address] Social History Tobacco Use Types Packs/Day Years Used Date Smoking Tobacco: Never Assessed Comments Unknown Sex and Gender Information Value Date Recorded Sex Assigned at Not on file Legal Sex Female 18:18 EST Gender Identity Female 02/14/2022 14:15 EST Sexual Orientation Not on file documented as of this encounter Progress Notes * Tad, Alsion Mining Teacher - 02/16/2009 1357 EST [facility] PROGRESS/FOLLOWUP NOTE - 05/09/2007 ANA M Jarquin [...] by Tiara Mendez MD 05/15/2007 08:52 Tiara Mednez MD P Job ID [id number] T: 6:02 P/JG Doc ID [id number] cc: P Job ID [id number] P/jg Doc ID [id number] cc: * Alison Mishra Mining Teacher - 02/16/2009 2408 EST [facility] PROGRESS/FOLLOWUP NOTE - 04/25/2007 ANA M Jarquin [...] 09:42 Tiara Mendez MD P Job ID [id number] T: 5:05 A/jennie Doc ID [id number] cc: cc: documented in this encounter Plan of Treatment Not on file documented as of this encounter Visit Diagnoses Not on filedocumented in this encounter Care Teams Dye Padder Operator Relationship Specialty Start Date End Date Avel Rivera MD PCP - General 09/03/08 07/10/09 documented as of this encounter
--- OUTSIDE RECORDS SUMMARY | 2024-04-16 15:45 | XMS_ITS | Encounter Summary ---
Author Organization [facility] Address [address] [place] [address] Care Team Providers Care Regional Sales Representative Name Role Phone Avel Rivera MD Primary Care Provider Unav ailable Encounter Details Date Type Department Care Team (Late st Contact Info) Description 06/17/2006 Before PRISM Converted Visit (Maple) [facility] - Maple conversion [address] [place] [address] Tiara Mendez MD [phone] [place] [address] Social History Tobacco Use Types Packs/Day Years Used Date Smoking Tobacco: Never Assessed Comments Unknown Sex and Gender Information Value Date Recorded Sex Assigned at Not on file Legal Sex Female 18:18 EST Gender Identity Female 02/14/2022 14:15 EST Sexual Orientation Not on file documented as of this encounter Progress Notes * Tad, Conv Acoustic Engineer - 02/08/2009 1252 EST [facility] PROGRESS/FOLLOWUP NOTE - 06/17/2006 ANA M Jarquin [...] a referral to the sleep clinic at [facility] for further evaluation and decide whether [...] Tiara Mendez MD 06/23/2006 12:40 Krishna Mendez, [facility] Tiara Mendez MD P Job ID [id number] Sharron/nubia Doc ID [id number] cc: \* MERGEFORMAT Tiara Mendez MD P Job ID [id number] Sharron/nubia Doc ID [id number] cc: documented in this encounter Plan of Treatment Not on file documented as of this encounter Visit Diagnoses Not on filedocumented in this encounter Care Teams Regional Sales Representative Relationship Specialty Start Date End Date Avel Rivera MD PCP - General 09/03/08 07/10/09 documented as of this encounter
--- OUTSIDE RECORDS SUMMARY | 2024-04-16 15:45 | XMS_ITS | Encounter Summary ---
Author Organization [facility] Address [address] [place] [address] Care Team Providers Care Plumbing Contractor Name Role Phone Unknown, Provider Primary Care Provider Agustin Anna MD Primary Care Provider [phone] Kayleigh Peña Primary Care Provider + [phone] Agustin Ramires MD Primary Care Provider [phone] Lizbet ZhangP Primary Care Provider [phone] Encounter Details Date Type Department Care Team (Late st Contact Info) Description 09/19/2010 Historical Results Only [facility] [place] [address] [address] Leland Boykin MD Social History Tobacco Use [...] (09/19/2010) 09/19/2010 09/20/2010 9:2 0 EDT Narrative [facility] - 09/21/2010 10:55 EDT ----- ------- Name: MILKA MENDIETA ?: 42 ?Age/Sex: 78/F ?Unit#: [id number] ? Loc: LAB.OPX ? Status: REG REF ?? Reg Date: 09/20/10 ? Pt.Phone Number: ? ----- ------- Specimen: [id number] ? STATUS: SOUT ?Spec Date:09/19/10 ? Physician Copies: ?Leland Boykin MD ?? Tissues: ? Urine (bladder) ? CPT: 36732 ?? Units: ??1 ----- ------- ?? NON DRY DIP WORKER CYTOLOGY DIAGNOSIS Urine,bladder: Benign urothelial cells. ----- [...] diagnosis. Test Performed by [facility], [address] [facility] [address] Air Tube Releaser: Namrata Childs MD PHD ----- ------- us Leland Boykin MD PATHOLOGY ORDERABLES Final Resul t [facility] documented in this encounter Visit Diagnoses Not on filedocumented in this encounter Care Teams Plumbing Contractor Relationship Specialty Start Date End Date Unknown, Provider, PCP - General 05/17/10 02/07/11 Agustin Ramires MD [address] [place] [phone] PCP - General 02/08/11 05/15/11 Kayleigh Peña PA [address] [place] [address] PCP - General 05/16/11 08/19/11 Agustin Ramires MD [address] [place] [id number] PCP - General 08/20/11 02/23/13 Lizbet Zhang FNP [address] [facility] [place] [id number] PCP - General 02/24/13 03/13/20 documented as of this encounter
--- OUTSIDE RECORDS SUMMARY | 2024-04-16 15:45 | XMS_ITS | Encounter Summary ---
Author Organization [facility] Address [address] [place] [address] Care Team Providers Care Napkin Machine Operator Name Role Phone Avel Rivera MD Primary Care Provider Unav ailable Reason for Visit * Reason Onset Date Comments Medications Refill 05/04/2009 robert, please call milka that this has been ordered Encounter Details Date Type Department Care Team (Late st Contact Info) Description 05/04/[address] [address] Avel Rivera MD Medications Refill (robert, please [...] documented as of this encounter Care Teams Napkin Machine Operator Relationship Specialty Start Date End Date Avel Rivera MD PCP - General 09/03/08 07/10/09 documented as of this encounter
--- OUTSIDE RECORDS SUMMARY | 2024-04-16 15:45 | XMS_ITS | Encounter Summary ---
Author Organization [facility] Address [address] [place] [address] Care Team Providers Care Labor And Delivery Registered Nurse Name Role Phone Agustin Ramires MD Primary Care Provider [phone] Avel Rivera MD Primary Care Provider Unav ailable Unknown, Provider Primary Care Provider Unava ilable Agustin Ramires MD Primary Care Provider [phone] Kayleigh Peña Primary Care Provider [phone] Agustin Ramires MD Primary Care Provider [phone] Lizbet Zhang WIRE SPINNER Primary Care Provider + [phone] Encounter Details Date Type Department Care Team (Late st Contact Info) Description 04/29/2009 Historical Results Only [facility] - Main [place] [address] [place] [id number] Leland Boykin MD Social History Tobacco Use [...] (04/29/2009) 04/29/2009 05/02/2009 10: 03 EST Narrative [facility] - 05/03/2009 9:10 EST ----- ------- Name: MILKA MENDIETA ?: 42 ?Age/Sex: 78/F ?Unit#: [id number] ? Loc: LAB.OPX ? Status: REG REF ?? Reg Date: 04/29/09 ? Pt.Phone Number: ? ----- ------- Specimen: [id number] ?STATUS: SOUT ?Spec Date:04/29/09 ? Physician Copies: ?Leland Boykin MD ?? Tissues: ? Urine (CLEAN CATCH) ? CPT: 25616 ?? Units: ??1 ----- ------- ?? NON INTERCEPTOR OPERATOR CYTOLOGY DIAGNOSIS Urine,voided: Benign squamous cells and [...] above diagnosis. Test Performed by [facility], [address] [place] [address] Carbon Capture Power Plant Manager: Namrata Childs MD PHD ----- ------- Leland Boykin MD PATHOLOGY ORDERABLES Final Resul t [facility] documented in this encounter Visit Diagnoses Not on filedocumented in this encounter Care Teams Labor And Delivery Registered Nurse Relationship Specialty Start Date End Date Agustin Ramires MD [address] [address] PCP - General 07/11/09 05/16/10 Avel Rivera MD PCP - General 09/03/08 07/10/09 Deandre, MD Nkechi PCP - General 05/17/10 02/07/11 Agustin Ramires MD [address] [address] PCP - General 02/08/11 05/15/11 Kayleigh Peña PA [address] [facility] [address] [place] [address] PCP - General 05/16/11 08/19/11 Agustin Ramires MD [facility] [address] [address] PCP - General 08/20/11 02/23/13 Lizbet Zhang FNP [address] [place], [place] [id number] PCP - General 02/24/13 03/13/20 documented as of this encounter
--- OUTSIDE RECORDS SUMMARY | 2024-04-16 15:46 | XMS_ITS ---
Author Organization Unknown Address [address] [place] [phone] Phone Care Team Providers Care Electrician Shop Name Role Phone GINOINGRIS MAHENDRA Attending Unavailable [facility] Primary Unavailable Social History Type Status Start Date End Date Code Code Syst em Smoking History Never smoker (Never Smoked) 913720939 SNOMED CT Sex Female Medications Medication Start Date End Date Route Frequency Dose Code Code System Medication Instructions Home Meds Amitriptyline 50MG Oral Tablet 08/20/2019 01/02/2022 ORAL BEDTIME 50 MILLIGRAMS 698549 RxNorm TAKE 50 MILLIGRAMS ORAL BEDTIME Atorvastatin Calcium 20MG Oral Tablet 08/20/2019 Unknown ORAL BEDTIME 20 MILLIGRAMS 317438 RxNorm TAKE 20 MILLIGRAMS ORAL BEDTIME Fish Oil 1000MG Oral Capsule, Liquid Filled 08/20/2019 03/18/2024 ORAL DAILY 3 CAPSULE 130615 RxNorm TA KE 3 CAPSULE ORAL DAILY Gabapentin 800MG Oral Tablet 08/20/2019 03/18/2024 ORAL TWICE A DAY 1 TABLET 650803 RxNorm TAKE 1 TABLET ORAL TWICE A DAY Lisinopril 20MG Oral Tablet 08/20/2019 03/18/2024 ORAL DAILY 20 MILLIGRAMS 576803 RxNorm TAKE 20 MILLIGRAMS ORAL DAILY Loratadine 10MG Oral Tablet 08/20/2019 01/02/2022 ORAL DAILY 10 MILLIGRAMS 046630 RxNorm TAKE 10 MILLIGRAMS ORAL DAILY Multiple Vitamin Formula Oral Tablet 08/20/2019 03/18/2024 ORAL DAILY 1 unit(s) 4481000 RxNorm TAKE 1 E ACH ORAL DAILY Pramipexole Dihydrochlorid e 0.125MG Oral Tablet 08/20/2019 09/30/2023 ORAL BEDTIME 2 TABLET 936893 RxNorm TAKE 2 TABLET ORAL BEDTIME Probiotic 250MG Oral Capsule 08/20/2019 01/02/2022 ORAL DAILY 3 TABLET 783245 RxNorm TAKE 3 TABLET ORAL DAILY glipiZIDE 10MG Oral Tablet, Extended Release 08/20/2019 Unknown ORAL DAILY 10 MILLIGRAMS 561439 RxNorm TAKE 10 MILLIGRAMS ORAL DAILY metFORMIN HCl 1000MG Oral Tablet 08/20/2019 Unknown ORAL TWICE A DAY WITH FOOD 1000 MILLIGRAMS 771838 RxNorm TAKE 1000 MILLIGRAMS ORAL TWICE A DAY WITH FOOD Cephalexin 500MG Oral Tablet 08/20/2019 01/02/2022 ORAL THREE TIMES A DAY 1 TABLET 499351 RxNorm TAKE 1 TABLET ORAL THREE TIMES A DAY Keflex 500MG Oral Capsule 01/02/2022 09/30/2023 ORAL THREE TIMES A DAY 1 CAPSULE 630780 RxNorm TAKE 1 CAPSULE ORAL THREE TIMES A DAY Nystatin 508988N/1ML Oral Suspension 01/02/2022 09/30/2023 ORAL FOUR TIMES A DAY 5 mL 868038 RxNorm TAKE 5 mL ORAL FOUR TIMES A DAY Cephalexin 500MG Oral Tablet 03/17/2024 03/19/2024 ORAL TWICE A DAY 1 TABLET 040984 RxNorm TAKE 1 TABLET ORAL TWICE A DAY x 7 days Acetaminophen 500MG Oral Tablet 03/18/2024 03/18/2024 ORAL NEEDED EVERY 6 HOURS 2 TABLET 173186 RxNorm TAKE 2 TABLET (OR 3 TABLETS regular strength 325mg) ORAL EVERY 6 HOURS FOR 1-2 DAYS THEN NEEDED FOR Fever/Pain (NEXT DOSES 6AM AND 12 NOON) Ibuprofen 200MG Oral Tablet 03/18/2024 03/18/2024 ORAL EVERY 6 HOURS 2 TABLET 278851 RxNorm TAKE 2 TABLET ORAL EVERY 6 HOURS FOR 24 HOURS THEN NEEDED. (NEXT DOSES at 4AM AND 10AM) Aspirin 81MG Oral Tablet, Enteric Coated 03/19/2024 Unknown ORAL DAILY 81 MILLIGRAMS 958352 RxNorm TAKE 81 MILLIGRAMS ORAL DAILY Carvedilol 6.25MG Oral Tablet 03/19/2024 Unknown ORAL TWICE A DAY 6.25 MILLIGRAMS 304618 RxNorm TAKE 6.25 MILLIGRAMS ORAL TWICE A DAY Fish Oil [place]-3 1000 MG Oral Capsule, Liquid Filled 03/19/2024 Unknown ORAL DAILY 1000 MG RxNorm TAKE 10 00 MG ORAL DAILY Gabapentin 600MG Oral Tablet 03/19/2024 Unknown ORAL TWICE A DAY 600 MILLIGRAMS 875179 RxNorm TAKE 600 MILLIGRAMS ORAL TWICE A DAY Lisinopril 10MG Oral Tablet 03/19/2024 Unknown ORAL DAILY 10 MILLIGRAMS 593766 RxNorm TAKE 10 MILLIGRAMS ORAL DAILY Multiple [...] Tablet 03/19/2024 Unknown ORAL BEDTIME 0.5 MILLIGRAMS 949304 RxNorm TAKE 0.5 MILLIGRAMS ORAL BEDTIME Ventolin HFA 0.09MG/1Actuat ion Inhalation Suspension 03/19/2024 Unknown INHAL ATION NEEDED EVERY 4 HOURS 2 unit(s) 092044 RxNorm 2 EACH INHALATION NEEDED EVERY 4 HOURS Victoza 6MG/1ML Subcutaneous Solution 03/19/2024 Unknown SUBCU TANEO US 1.8 MILLILITERS 028220 RxNorm INJECT 1.8 MILLILITERS SUBCUTANEOU S Cefdinir [...] Code Code System URINARY TRACT INFECTION active 932488 05 SNOMED-CT HYPOTENSION active 07899839 SNOMED-C T HYPOKALEMIA active 88523352 SNOMED-C T SEPSIS active 51054570 SNOMED-CT CIRRHOSIS - NON-ALCOHOLIC 01/02/2022 resolved 266 928232 SNOMED-CT HTN 08/20/2019 resolved 63302674 SNOMED-CT HIGH CHOLESTEROL 10/01/2023 resolved 42356289 SN OMED-CT PERSONAL HISTORY OF BLADDER CA 08/20/2019 resolved 421760232 SNOMED-CT NON-INSULIN DEPENDENT DIABETES MELLITUS 08/20/2019 resolved 99298223 SNOMED-CT 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 191743130 SNOMED-CT Allergies and Adverse Reactions Allergy Substance Reaction Severity Start Date Concern Status Co de Code System CODEINE Active 9950 RxNorm Plan of Treatment NM MPI STR/RST 05/15/2023 CT CHEST W/O CONTRAST 05/18/2022 CT CHEST W/O CONTRAST 03/26/2022 MRI BRAIN W/O CONTRAST 01/25/2021 Encounters Encounter Diagnosis Start Date Code Code Sys tem Benign paroxysmal vertigo, left ear 11/01/2020 SNOMED-CT Personal Care Team Section Performer Name Performer Role Active Date Inactive Da lanette
--- OUTSIDE RECORDS SUMMARY | 2024-04-16 15:46 | XMS_ITS ---
Author Organization Unknown Address [address] [place] [phone] Phone Care Team Providers Care Bleach Packer Name Role Phone HANSA RODRIGUEZ MD Attending Unavailable JOHN PETERSON Primary Unavailable Results URINALYSIS ROUTINE - Collect Date/Time: 11/17/2020 15:00 [facility] ID: [id number] - [id number] [address] [place], [place], [address] LOINC: Test Value Unit Reference Range Code Code System Flag COLLECTION MODE: CLEAN CATCH Color ORANGE yellow 5778-6 LOINC Appearance HAZY clear 5767-9 LOINC Glucose urine DNR negative mg/dl 49579-5 LOINC Bilirubin DNR negative 5770-3 LOINC Ketones DNR negative mg/dl 2514-8 LOINC Spec gravity DNR 1.003 - 1.030 5811-5 LOINC pH urine DNR 5.0 - 7.0 2756-5 LOINC Protein DNR negative mg/dl 83964-3 LOINC Urobilinogen DNR <or= 1 EU/dl 24332-3 LOINC Nitrite DNR negative 5802-4 LOINC Blood DNR negative 5794-3 LOINC Leukocytes DNR negative 57112-9 LOINC MICROSCOPIC* INDICATED WBCs 25-100 0-5 / hpf 88438-8 LOINC RBCs 5-10 0-5 / hpf 98269-4 LOINC Epith cells none 0-5 / hpf 51315-1 LOINC Crystals none none Bacteria large none Mucus none none 8247-9 LOINC Casts none none /lpf 42517-0 LOINC Other 11555-0 LOINC CORRECTED CORRECTED Social History Type Status Start Date End Date Code Code Syst em Smoking History Never smoker (Never Smoked) 293684717 SNOMED CT Sex Female Medications Medication Start Date End Date Route Frequency Dose Code Code System Medication Instructions Home Meds Amitriptyline 50MG Oral Tablet 08/20/2019 01/02/2022 ORAL BEDTIME 50 MILLIGRAMS 746372 RxNorm TAKE 50 MILLIGRAMS ORAL BEDTIME Atorvastatin Calcium 20MG Oral Tablet 08/20/2019 Unknown ORAL BEDTIME 20 MILLIGRAMS 555097 RxNorm TAKE 20 MILLIGRAMS ORAL BEDTIME Fish Oil 1000MG Oral Capsule, Liquid Filled 08/20/2019 03/18/2024 ORAL DAILY 3 CAPSULE 855475 RxNorm TA KE 3 CAPSULE ORAL DAILY Gabapentin 800MG Oral Tablet 08/20/2019 03/18/2024 ORAL TWICE A DAY 1 TABLET 184687 RxNorm TAKE 1 TABLET ORAL TWICE A DAY Lisinopril 20MG Oral Tablet 08/20/2019 03/18/2024 ORAL DAILY 20 MILLIGRAMS 454887 RxNorm TAKE 20 MILLIGRAMS ORAL DAILY Loratadine 10MG Oral Tablet 08/20/2019 01/02/2022 ORAL DAILY 10 MILLIGRAMS 934931 RxNorm TAKE 10 MILLIGRAMS ORAL DAILY Multiple Vitamin Formula Oral Tablet 08/20/2019 03/18/2024 ORAL DAILY 1 unit(s) 4731365 RxNorm TAKE 1 E ACH ORAL DAILY Pramipexole Dihydrochlorid e 0.125MG Oral Tablet 08/20/2019 09/30/2023 ORAL BEDTIME 2 TABLET 668683 RxNorm TAKE 2 TABLET ORAL BEDTIME Probiotic 250MG Oral Capsule 08/20/2019 01/02/2022 ORAL DAILY 3 TABLET 140891 RxNorm TAKE 3 TABLET ORAL DAILY glipiZIDE 10MG Oral Tablet, Extended Release 08/20/2019 Unknown ORAL DAILY 10 MILLIGRAMS 817590 RxNorm TAKE 10 MILLIGRAMS ORAL DAILY metFORMIN HCl 1000MG Oral Tablet 08/20/2019 Unknown ORAL TWICE A DAY WITH FOOD 1000 MILLIGRAMS 068608 RxNorm TAKE 1000 MILLIGRAMS ORAL TWICE A DAY WITH FOOD Cephalexin 500MG Oral Tablet 08/20/2019 01/02/2022 ORAL THREE TIMES A DAY 1 TABLET 653418 RxNorm TAKE 1 TABLET ORAL THREE TIMES A DAY Keflex 500MG Oral Capsule 01/02/2022 09/30/2023 ORAL THREE TIMES A DAY 1 CAPSULE 814454 RxNorm TAKE 1 CAPSULE ORAL THREE TIMES A DAY Nystatin 233356O/1ML Oral Suspension 01/02/2022 09/30/2023 ORAL FOUR TIMES A DAY 5 mL 464478 RxNorm TAKE 5 mL ORAL FOUR TIMES A DAY Cephalexin 500MG Oral Tablet 03/17/2024 03/19/2024 ORAL TWICE A DAY 1 TABLET 199038 RxNorm TAKE 1 TABLET ORAL TWICE A DAY x 7 days Acetaminophen 500MG Oral Tablet 03/18/2024 03/18/2024 ORAL NEEDED EVERY 6 HOURS 2 TABLET 132324 RxNorm TAKE 2 TABLET (OR 3 TABLETS regular strength 325mg) ORAL EVERY 6 HOURS FOR 1-2 DAYS THEN NEEDED FOR Fever/Pain (NEXT DOSES 6AM AND 12 NOON) Ibuprofen 200MG Oral Tablet 03/18/2024 03/18/2024 ORAL EVERY 6 HOURS 2 TABLET 296590 RxNorm TAKE 2 TABLET ORAL EVERY 6 HOURS FOR 24 HOURS THEN NEEDED. (NEXT DOSES at 4AM AND 10AM) Aspirin 81MG Oral Tablet, Enteric Coated 03/19/2024 Unknown ORAL DAILY 81 MILLIGRAMS 199975 RxNorm TAKE 81 MILLIGRAMS ORAL DAILY Carvedilol 6.25MG Oral Tablet 03/19/2024 Unknown ORAL TWICE A DAY 6.25 MILLIGRAMS 19990607 RxNorm TAKE 6.25 MILLIGRAMS ORAL TWICE A DAY Fish Oil [place]-3 1000 MG Oral Capsule, Liquid Filled 03/19/2024 Unknown ORAL DAILY 1000 MG RxNorm TAKE 10 00 MG ORAL DAILY Gabapentin 600MG Oral Tablet 03/19/2024 Unknown ORAL TWICE A DAY 600 MILLIGRAMS 996288 RxNorm TAKE 600 MILLIGRAMS ORAL TWICE A DAY Lisinopril 10MG Oral Tablet 03/19/2024 Unknown ORAL DAILY 10 MILLIGRAMS 783603 RxNorm TAKE 10 MILLIGRAMS ORAL DAILY Multiple [...] Tablet 03/19/2024 Unknown ORAL BEDTIME 0.5 MILLIGRAMS 209803 RxNorm TAKE 0.5 MILLIGRAMS ORAL BEDTIME Ventolin HFA 0.09MG/1Actuat ion Inhalation Suspension 03/19/2024 Unknown INHAL ATION NEEDED EVERY 4 HOURS 2 unit(s) 782451 RxNorm 2 EACH INHALATION NEEDED EVERY 4 HOURS Victoza 6MG/1ML Subcutaneous Solution 03/19/2024 Unknown SUBCU TANEO US 1.8 MILLILITERS 733059 RxNorm INJECT 1.8 MILLILITERS SUBCUTANEOU S Cefdinir [...] Code Code System URINARY TRACT INFECTION active 463867 05 SNOMED-CT HYPOTENSION active 51335215 SNOMED-C T HYPOKALEMIA active 83275011 SNOMED-C T SEPSIS active 25802320 SNOMED-CT CIRRHOSIS - NON-ALCOHOLIC 01/02/2022 resolved 266 820952 SNOMED-CT HTN 08/20/2019 resolved 08247068 SNOMED-CT HIGH CHOLESTEROL 10/01/2023 resolved 45780938 SN OMED-CT PERSONAL HISTORY OF BLADDER CA 08/20/2019 resolved 142739723 SNOMED-CT NON-INSULIN DEPENDENT DIABETES MELLITUS 08/20/2019 resolved 92938256 SNOMED-CT 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
== END 2024-04-16 15:12 | disposition home or self-care (01) ==
LOC: NCHCN 15:11
PROVIDERS: PCP Nurse Practitioner Family; Visit Provider Family Medicine
DX: R30.0 Dysuria (principal)
CPT/HCPCS: 87077; 87086; 87186

== ENCOUNTER 2024-04-20 15:38 | Outpatient (REF) | payer MEDICARE, SELFPAY ==
--- OUTSIDE RECORDS SUMMARY | 2024-04-20 15:42 | XMS_ITS ---
Author Organization Unknown Address [address] [place] [phone] Phone Care Team Providers Care Food Assembler Name Role Phone LYUBOVMIRA HULLMARIA R Attending Unavailable JOHN Guaman Primary Unavailable Social History Type Status Start Date End Date Code Code Syst em Smoking History Never smoker (Never Smoked) 757592920 SNOMED CT Sex Female Medications Medication Start Date End Date Route Frequency Dose Code Code System Medication Instructions Home Meds Amitriptyline 50MG Oral Tablet 08/20/2019 01/02/2022 ORAL BEDTIME 50 MILLIGRAMS 776163 RxNorm TAKE 50 MILLIGRAMS ORAL BEDTIME Atorvastatin Calcium 20MG Oral Tablet 08/20/2019 Unknown ORAL BEDTIME 20 MILLIGRAMS 953713 RxNorm TAKE 20 MILLIGRAMS ORAL BEDTIME Fish Oil 1000MG Oral Capsule, Liquid Filled 08/20/2019 03/18/2024 ORAL DAILY 3 CAPSULE 333984 RxNorm TA KE 3 CAPSULE ORAL DAILY Gabapentin 800MG Oral Tablet 08/20/2019 03/18/2024 ORAL TWICE A DAY 1 TABLET 138797 RxNorm TAKE 1 TABLET ORAL TWICE A DAY Lisinopril 20MG Oral Tablet 08/20/2019 03/18/2024 ORAL DAILY 20 MILLIGRAMS 528988 RxNorm TAKE 20 MILLIGRAMS ORAL DAILY Loratadine 10MG Oral Tablet 08/20/2019 01/02/2022 ORAL DAILY 10 MILLIGRAMS 458849 RxNorm TAKE 10 MILLIGRAMS ORAL DAILY Multiple Vitamin Formula Oral Tablet 08/20/2019 03/18/2024 ORAL DAILY 1 unit(s) 3156714 RxNorm TAKE 1 E ACH ORAL DAILY Pramipexole Dihydrochlorid e 0.125MG Oral Tablet 08/20/2019 09/30/2023 ORAL BEDTIME 2 TABLET 610431 RxNorm TAKE 2 TABLET ORAL BEDTIME Probiotic 250MG Oral Capsule 08/20/2019 01/02/2022 ORAL DAILY 3 TABLET 806281 RxNorm TAKE 3 TABLET ORAL DAILY glipiZIDE 10MG Oral Tablet, Extended Release 08/20/2019 Unknown ORAL DAILY 10 MILLIGRAMS 807886 RxNorm TAKE 10 MILLIGRAMS ORAL DAILY metFORMIN HCl 1000MG Oral Tablet 08/20/2019 Unknown ORAL TWICE A DAY WITH FOOD 1000 MILLIGRAMS 657216 RxNorm TAKE 1000 MILLIGRAMS ORAL TWICE A DAY WITH FOOD Cephalexin 500MG Oral Tablet 08/20/2019 01/02/2022 ORAL THREE TIMES A DAY 1 TABLET 212544 RxNorm TAKE 1 TABLET ORAL THREE TIMES A DAY Keflex 500MG Oral Capsule 01/02/2022 09/30/2023 ORAL THREE TIMES A DAY 1 CAPSULE 979839 RxNorm TAKE 1 CAPSULE ORAL THREE TIMES A DAY Nystatin 614079M/1ML Oral Suspension 01/02/2022 09/30/2023 ORAL FOUR TIMES A DAY 5 mL 970858 RxNorm TAKE 5 mL ORAL FOUR TIMES A DAY Cephalexin 500MG Oral Tablet 03/17/2024 03/19/2024 ORAL TWICE A DAY 1 TABLET 218411 RxNorm TAKE 1 TABLET ORAL TWICE A DAY x 7 days Acetaminophen 500MG Oral Tablet 03/18/2024 03/18/2024 ORAL NEEDED EVERY 6 HOURS 2 TABLET 342854 RxNorm TAKE 2 TABLET (OR 3 TABLETS regular strength 325mg) ORAL EVERY 6 HOURS FOR 1-2 DAYS THEN NEEDED FOR Fever/Pain (NEXT DOSES 6AM AND 12 NOON) Ibuprofen 200MG Oral Tablet 03/18/2024 03/18/2024 ORAL EVERY 6 HOURS 2 TABLET 088721 RxNorm TAKE 2 TABLET ORAL EVERY 6 HOURS FOR 24 HOURS THEN NEEDED. (NEXT DOSES at 4AM AND 10AM) Aspirin 81MG Oral Tablet, Enteric Coated 03/19/2024 Unknown ORAL DAILY 81 MILLIGRAMS 124324 RxNorm TAKE 81 MILLIGRAMS ORAL DAILY Carvedilol 6.25MG Oral Tablet 03/19/2024 Unknown ORAL TWICE A DAY 6.25 MILLIGRAMS 096994 RxNorm TAKE 6.25 MILLIGRAMS ORAL TWICE A DAY Fish Oil [place]-3 1000 MG Oral Capsule, Liquid Filled 03/19/2024 Unknown ORAL DAILY 1000 MG RxNorm TAKE 10 00 MG ORAL DAILY Gabapentin 600MG Oral Tablet 03/19/2024 Unknown ORAL TWICE A DAY 600 MILLIGRAMS 847645 RxNorm TAKE 600 MILLIGRAMS ORAL TWICE A DAY Lisinopril 10MG Oral Tablet 03/19/2024 Unknown ORAL DAILY 10 MILLIGRAMS 238300 RxNorm TAKE 10 MILLIGRAMS ORAL DAILY Multiple [...] Tablet 03/19/2024 Unknown ORAL BEDTIME 0.5 MILLIGRAMS 031006 RxNorm TAKE 0.5 MILLIGRAMS ORAL BEDTIME Ventolin HFA 0.09MG/1Actuat ion Inhalation Suspension 03/19/2024 Unknown INHAL ATION NEEDED EVERY 4 HOURS 2 unit(s) 767700 RxNorm 2 EACH INHALATION NEEDED EVERY 4 HOURS Victoza 6MG/1ML Subcutaneous Solution 03/19/2024 Unknown SUBCU TANEO US 1.8 MILLILITERS 325284 RxNorm INJECT 1.8 MILLILITERS SUBCUTANEOU S Cefdinir [...] Code Code System URINARY TRACT INFECTION active 049490 05 SNOMED-CT HYPOTENSION active 02535030 SNOMED-C T HYPOKALEMIA active 92030371 SNOMED-C T SEPSIS active 94744166 SNOMED-CT CIRRHOSIS - NON-ALCOHOLIC 01/02/2022 resolved 266 433379 SNOMED-CT HTN 08/20/2019 resolved 28435558 SNOMED-CT HIGH CHOLESTEROL 10/01/2023 resolved 04030750 SN OMED-CT PERSONAL HISTORY OF BLADDER CA 08/20/2019 resolved 002261425 SNOMED-CT NON-INSULIN DEPENDENT DIABETES MELLITUS 08/20/2019 resolved 91462766 SNOMED-CT 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 178329185 SNOMED-CT Allergies and Adverse Reactions Allergy Substance Reaction Severity Start Date Concern Status Co de Code System CODEINE Active 7012 RxNorm Plan of Treatment PFT COMPLETE W BROCHODILATER 04/23/2024 NM MPI STR/RST 05/15/2023 CT CHEST W/O CONTRAST 05/18/2022 CT CHEST W/O CONTRAST 03/26/2022 MRI BRAIN W/O CONTRAST 01/25/2021 Encounters Encounter Diagnosis Start Date Code Code Sys tem Refusal of treatment by patient 08/24/2021 788910217 SNOMED-CT Personal Care Team Section Performer Name Performer Role Active Date Inactive Da te
--- OUTSIDE RECORDS SUMMARY | 2024-04-20 15:43 | XMS_ITS ---
Author Organization Unknown Address [address] [place] [address] [phone] Phone Care Team Providers Care Tricot Knitting Machine Operator Name Role Phone ERAN Viera Attending Unavailable Results XR CHEST 2V PA AND LATERAL - Completed: 11/27/2022 14:20 LOINC: [facility] [place], [place] [address] PACS RELATIONS SPECIALIST REPORT Patient Name: NICK MENDIETA MRN: Sex: : Age: [id number] F 1940 82 Account: Accession: Admit: StayType: [id number] 11/27/2022 O/P Ordered: Order ID: Submitted: Ordering Provider: 11/27/2022 14:03 [id number] KT RUPAL BARILLAS Completed: Technologist: Resulted: 11/27/2022 14:20 [facility] 11/27/2022 14:47 Study Description: XR CHEST 2V [...] em Smoking History Never smoker (Never Smoked) [id number] SNOMED CT Sex Female Medications Medication Start Date End Date Route Frequency Dose Code Code System Medication Instructions Home Meds Atorvastatin Calcium 20MG Oral Tablet 08/20/2019 Unknown ORAL BEDTIME 20 MILLIGRAMS 358337 RxNorm TAKE 20 MILLIGRAMS ORAL BEDTIME Fish Oil 1000MG Oral Capsule, Liquid Filled 08/20/2019 03/18/20 24 ORAL DAILY 3 CAPSULE 847735 RxNorm TAKE 3 CAPSULE ORAL DAILY Gabapentin 800MG Oral Tablet 08/20/2019 03/18/20 24 ORAL TWICE A DAY 1 TABLET 901464 RxNorm TAKE 1 TABLET ORAL TWICE A DAY Lisinopril 20MG Oral Tablet 08/20/2019 03/18/20 24 ORAL DAILY 20 MILLIGRAMS 337726 RxNorm TAKE 20 MILLIGRAMS ORAL DAILY Multiple Vitamin Formula Oral Tablet 08/20/2019 03/18/20 24 ORAL DAILY 1 unit(s) 6019125 RxNorm TAKE 1 EACH ORAL DAILY Pramipexole Dihydrochlorid e 0.125MG Oral Tablet 08/20/2019 09/30/19 24 ORAL BEDTIME 2 TABLET 657808 RxNorm TAKE 2 TABLET ORAL BEDTIME glipiZIDE 10MG Oral Tablet, Extended Release 08/20/2019 Unknown ORAL DAILY 10 MILLIGRAMS 262363 RxNorm TAKE 10 MILLIGRAMS ORAL DAILY metFORMIN HCl 1000MG Oral Tablet 08/20/2019 Unknown ORAL TWICE A DAY WITH FOOD 1000 MILLIGRAMS 808880 RxNorm TAKE 1000 MILLIGRAMS ORAL TWICE A DAY WITH FOOD Keflex 500MG Oral Capsule 01/02/2022 09/30/19 24 ORAL THREE TIMES A DAY 1 CAPSULE 113542 RxNorm TAKE 1 CAPSULE ORAL THREE TIMES A DAY Nystatin 430986X/1ML Oral Suspension 01/02/2022 09/30/19 24 ORAL FOUR TIMES A DAY 5 mL 501252 RxNorm TAKE 5 mL ORAL FOUR TIMES A DAY Cephalexin 500MG Oral Tablet 03/17/2024 03/19/20 24 ORAL TWICE A DAY 1 TABLET 470739 RxNorm TAKE 1 TABLET ORAL TWICE A DAY x 7 days Acetaminophen 500MG Oral Tablet 03/18/2024 03/18/20 24 ORAL NEEDED EVERY 6 HOURS 2 TABLET 747989 RxNorm TAKE 2 TABLET (OR 3 TABLETS regular strength 325mg) ORAL EVERY 6 HOURS FOR 1-2 DAYS THEN NEEDED FOR Fever/Pain (NEXT DOSES 6AM AND 12 NOON) Ibuprofen 200MG Oral Tablet 03/18/2024 03/18/20 24 ORAL EVERY 6 HOURS 2 TABLET 664340 RxNorm TAKE 2 TABLET ORAL EVERY 6 HOURS FOR 24 HOURS THEN NEEDED. (NEXT DOSES at 4AM AND 10AM) Aspirin 81MG Oral Tablet, Enteric Coated 03/19/2024 Unknown ORAL DAILY 81 MILLIGRAMS 399818 RxNorm TAKE 81 MILLIGRAMS ORAL DAILY Carvedilol 6.25MG Oral Tablet 03/19/2024 Unknown ORAL TWICE A DAY 6.25 MILLIGRAMS 19990607 RxNorm TAKE 6.25 MILLIGRAMS ORAL TWICE A DAY Fish Oil [place]-3 1000 MG Oral Capsule, Liquid Filled 03/19/2024 Unknown ORAL DAILY 1000 MG RxNorm TAKE 10 00 MG ORAL DAILY Gabapentin 600MG Oral Tablet 03/19/2024 Unknown ORAL TWICE A DAY 600 MILLIGRAMS 554967 RxNorm TAKE 600 MILLIGRAMS ORAL TWICE A DAY Lisinopril 10MG Oral Tablet 03/19/2024 Unknown ORAL DAILY 10 MILLIGRAMS 900102 RxNorm TAKE 10 MILLIGRAMS ORAL DAILY Multiple Vitamins Oral Tablet 03/19/2024 Unknown ORAL DAILY 1 unit(s) RxNorm TAKE 1 EACH ORAL DAILY Nitroglycerin 0.4MG Sublingual Tablet 03/19/2024 Unknown SUBLIN GUAL NEEDED 0.4 MILLIGRAMS 220344 RxNorm DISSOLVE 0.4 MILLIGRAMS SUBLINGUAL NEEDED Omeprazole 40MG Oral Capsule, Delayed Release 03/19/2024 Unknown ORAL DAILY 40 MILLIGRAMS 20020517 RxNorm TAKE 40 MILLIGRAMS ORAL DAILY Pramipexole Dihydrochlorid e 0.5MG Oral Tablet 03/19/2024 Unknown ORAL BEDTIME 0.5 MILLIGRAMS 051670 RxNorm TAKE 0.5 MILLIGRAMS ORAL BEDTIME Ventolin HFA 0.09MG/1Actuat ion Inhalation Suspension 03/19/2024 Unknown INHALA TION NEEDED EVERY 4 HOURS 2 unit(s) 745742 RxNorm 2 EACH INHALATION NEEDED EVERY 4 HOURS Victoza 6MG/1ML Subcutaneous Solution 03/19/2024 Unknown SUBCUT ANEOUS 1.8 MILLILITERS 252158 RxNorm INJECT 1.8 MILLILITERS SUBCUTANEOU S Cefdinir [...] Code Code System URINARY TRACT INFECTION active 490194 05 SNOMED-CT HYPOTENSION active 74408170 SNOMED-C T HYPOKALEMIA active 97785856 SNOMED-C T SEPSIS active 07666329 SNOMED-CT CIRRHOSIS - NON-ALCOHOLIC 01/02/2022 resolved 266 003885 SNOMED-CT HTN 08/20/2019 resolved 93621724 SNOMED-CT HIGH CHOLESTEROL 10/01/2023 resolved 46108896 SN OMED-CT PERSONAL HISTORY OF BLADDER CA 08/20/2019 resolved 689287506 SNOMED-CT NON-INSULIN DEPENDENT DIABETES MELLITUS 08/20/2019 resolved 47229280 SNOMED-CT 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 805003019 SNOMED-CT Allergies and Adverse Reactions Allergy Substance Reaction Severity Start Date Concern Status Co de Code System CODEINE Active 2670 RxNorm Plan of Treatment PFT COMPLETE W BROCHODILATER 04/23/2024 NM MPI STR/RST 05/15/2023 CT CHEST W/O CONTRAST 05/18/2022 CT CHEST W/O CONTRAST 03/26/2022 MRI BRAIN W/O CONTRAST 01/25/2021 Encounters Encounter Diagnosis Start Date Code Code Sys tem Pneumonia 11/27/2022 [id number] SNOMED-CT Personal Care Team Section Performer Name Performer Role Active Date Inactive Da te
--- OUTSIDE RECORDS SUMMARY | 2024-04-20 15:45 | XMS_ITS ---
Author Organization Unknown Address [address] [place] [address] [phone] Phone Care Team Providers Care Rug Cleaner Hand Name Role Phone MCCORMACK CRYSTAL Gallo Attending Unavailable ERAN Viera Primary Unavailable Results TSH THYROID STIMULATING HORM ONE* - Collect Date/Time: 05/21/2023 11:48 [facility] ID: [id number] [address] [place] [address], [address] LOINC: 3014-8 Test Value Unit Reference Range Code Code System Flag TSH 2.546 uIU/mL L=0.360 H=3.740 3014-8 LOINC TROPONIN HIGH SENSITIVITY* - Collect Date/Time: 05/21/2023 11:48 [facility] ID: [id number] [address] [place] [address], [address] LOINC: 43308-1 Test Value Unit Reference Range Code Code System Flag TROPONIN HS 5.1 pg/mL L=0.0 H=60.4 Specimen seq. RANDOM BNP (PRO-B NATRIURETIC PEPTI DE) - Collect Date/Time: 05/21/2023 11:48 [facility] ID: [id number] [address] [place] [address], [address] LOINC: 99564-7 Test Value Unit Reference Range Code Code System Flag NT-proBNP 118.0 pg/mL L=0.0 H=450 25194-1 LOINC CBC W/ DIFFERENTIAL* - Colle ct Date/Time: 05/21/2023 11:48 [facility] ID: [id number] [address] [place] [address] [place], [address] LOINC: 14583-3 Test Value Unit Reference Range Code Code System Flag WBC 5.04 th/cmm L=5.00 H=10.00 6690-2 LOINC NEUT % 57.1 % L=40.0 H=80.0 LYMPH % 26.0 % L=10.0 H=50.0 MONO % 11.5 % L=2.0 H=12.0 11256-6 LOINC EOS % 4.4 % L=0.0 H=8.0 BASO % 0.8 % L=0.0 H=3.0 IG % 0.2 % L=0.0 H=1.1 2514-8 LOINC NRBC % 0.0 % L=0.0 H=0.0 84773-9 LOINC NEUT abs count 2.9 th/cmm L=1.6 H=8.4 751-8 LOINC LYMPH abs count 1.3 th/cmm L=1.5 H=4.0 731-0 LOINC L MONO abs count 0.6 th/cmm L=0.2 H=1.0 742-7 LOINC EOS abs count 0.2 th/cmm L=0.0 H=0.5 711-2 LOINC BASO abs count 0.0 th/cmm L=0.0 H=0.2 704-7 LOINC IG abs count 0.0 th/cmm L=0.0 H=0.1 90691-9 LOINC NRBC abs count 0.0 mil/cmm L=0.0 H=0.0 21573-9 LOINC RBC 4.15 mil/cmm L=3.90 H=5.40 789-8 [...] PANEL (BMP) - Collect Date/Time: 05/21/2023 11:48 [facility] ID: [id number] - [id number] [address] [place], [place], [address] LOINC: 99051-8 Test Value Unit Reference Range Code Code [...] H=34 2028-9 LOINC ANION GAP 7.7 mmol/L 81029-0 LOINC CALCIUM SERUM 9.4 mg/dL L=8.2 H=10.2 47284-1 LOINC AGE 82 years eGFR (non-Afr.Amer.) 64 mL/min 98422-5 LOINC eGFR (Afr-Mozambican) 78 mL/min 64099-0 LOINC Social History Type Status Start Date End Date Code Code Syst em Smoking History Never smoker (Never Smoked) 100961729 SNOMED CT Sex Female Medications Medication Start Date End Date Route Frequency Dose Code Code System Medication Instructions Home Meds Atorvastatin Calcium 20MG Oral Tablet 08/20/2019 Unknown ORAL BEDTIME 20 MILLIGRAMS 098285 RxNorm TAKE 20 MILLIGRAMS ORAL BEDTIME Fish Oil 1000MG Oral Capsule, Liquid Filled 08/20/2019 03/18/20 24 ORAL DAILY 3 CAPSULE 325777 RxNorm TAKE 3 CAPSULE ORAL DAILY Gabapentin 800MG Oral Tablet 08/20/2019 03/18/20 24 ORAL TWICE A DAY 1 TABLET 198597 RxNorm TAKE 1 TABLET ORAL TWICE A DAY Lisinopril 20MG Oral Tablet 08/20/2019 03/18/20 24 ORAL DAILY 20 MILLIGRAMS 264103 RxNorm TAKE 20 MILLIGRAMS ORAL DAILY Multiple Vitamin Formula Oral Tablet 08/20/2019 03/18/20 24 ORAL DAILY 1 unit(s) 7551429 RxNorm TAKE 1 EACH ORAL DAILY Pramipexole Dihydrochlorid e 0.125MG Oral Tablet 08/20/2019 09/30/19 24 ORAL BEDTIME 2 TABLET 725378 RxNorm TAKE 2 TABLET ORAL BEDTIME glipiZIDE 10MG Oral Tablet, Extended Release 08/20/2019 Unknown ORAL DAILY 10 MILLIGRAMS 858977 RxNorm TAKE 10 MILLIGRAMS ORAL DAILY metFORMIN HCl 1000MG Oral Tablet 08/20/2019 Unknown ORAL TWICE A DAY WITH FOOD 1000 MILLIGRAMS 644878 RxNorm TAKE 1000 MILLIGRAMS ORAL TWICE A DAY WITH FOOD Keflex 500MG Oral Capsule 01/02/2022 09/30/19 24 ORAL THREE TIMES A DAY 1 CAPSULE 057168 RxNorm TAKE 1 CAPSULE ORAL THREE TIMES A DAY Nystatin 909727G/1ML Oral Suspension 01/02/2022 09/30/19 24 ORAL FOUR TIMES A DAY 5 mL 886225 RxNorm TAKE 5 mL ORAL FOUR TIMES A DAY Cephalexin 500MG Oral Tablet 03/17/2024 03/19/20 24 ORAL TWICE A DAY 1 TABLET 363862 RxNorm TAKE 1 TABLET ORAL TWICE A DAY x 7 days Acetaminophen 500MG Oral Tablet 03/18/2024 03/18/20 24 ORAL NEEDED EVERY 6 HOURS 2 TABLET 564834 RxNorm TAKE 2 TABLET (OR 3 TABLETS regular strength 325mg) ORAL EVERY 6 HOURS FOR 1-2 DAYS THEN NEEDED FOR Fever/Pain (NEXT DOSES 6AM AND 12 NOON) Ibuprofen 200MG Oral Tablet 03/18/2024 03/18/20 24 ORAL EVERY 6 HOURS 2 TABLET 373757 RxNorm TAKE 2 TABLET ORAL EVERY 6 HOURS FOR 24 HOURS THEN NEEDED. (NEXT DOSES at 4AM AND 10AM) Aspirin 81MG Oral Tablet, Enteric Coated 03/19/2024 Unknown ORAL DAILY 81 MILLIGRAMS 561789 RxNorm TAKE 81 MILLIGRAMS ORAL DAILY Carvedilol 6.25MG Oral Tablet 03/19/2024 Unknown ORAL TWICE A DAY 6.25 MILLIGRAMS 960485 RxNorm TAKE 6.25 MILLIGRAMS ORAL TWICE A DAY Fish Oil [place]-3 1000 MG Oral Capsule, Liquid Filled 03/19/2024 Unknown ORAL DAILY 1000 MG RxNorm TAKE 10 00 MG ORAL DAILY Gabapentin 600MG Oral Tablet 03/19/2024 Unknown ORAL TWICE A DAY 600 MILLIGRAMS 973860 RxNorm TAKE 600 MILLIGRAMS ORAL TWICE A DAY Lisinopril 10MG Oral Tablet 03/19/2024 Unknown ORAL DAILY 10 MILLIGRAMS 973873 RxNorm TAKE 10 MILLIGRAMS ORAL DAILY Multiple [...] Tablet 03/19/2024 Unknown ORAL BEDTIME 0.5 MILLIGRAMS 151781 RxNorm TAKE 0.5 MILLIGRAMS ORAL BEDTIME Ventolin HFA 0.09MG/1Actuat ion Inhalation Suspension 03/19/2024 Unknown INHALA TION NEEDED EVERY 4 HOURS 2 unit(s) 369589 RxNorm 2 EACH INHALATION NEEDED EVERY 4 HOURS Victoza 6MG/1ML Subcutaneous Solution 03/19/2024 Unknown SUBCUT ANEOUS 1.8 MILLILITERS 426901 RxNorm INJECT 1.8 MILLILITERS SUBCUTANEOU S Cefdinir [...] Code Code System URINARY TRACT INFECTION active 679029 05 SNOMED-CT HYPOTENSION active 75769152 SNOMED-C T HYPOKALEMIA active 64831372 SNOMED-C T SEPSIS active 87160913 SNOMED-CT CIRRHOSIS - NON-ALCOHOLIC 01/02/2022 resolved 266 433737 SNOMED-CT HTN 08/20/2019 resolved 44247620 SNOMED-CT HIGH CHOLESTEROL 10/01/2023 resolved 23159909 SN OMED-CT PERSONAL HISTORY OF BLADDER CA 08/20/2019 resolved 486646189 SNOMED-CT NON-INSULIN DEPENDENT DIABETES MELLITUS 08/20/2019 resolved 14392478 SNOMED-CT 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
--- OUTSIDE RECORDS SUMMARY | 2024-04-20 15:45 | XMS_ITS ---
Author Organization Unknown Address [address] [place] [address] [phone] Phone Care Team Providers Care Passenger Relations Representative Name Role Phone LYNN VILLEDA Attending Unavailable ERAN Viera Primary Unavailable Results NM MPI COMPLETE - Completed: 05/15/2023 15:43 LOINC: [place], [place] [address] PACS PLATE MOUNTER REPORT Patient Name: NICK MENDIETA MRN: Sex: : Age: [id number] F 1940 82 Account: Accession: Admit: StayType: [id number] 05/15/2023 CLINIC Ordered: Order ID: Submitted: Ordering Provider: 05/15/2023 14:10 [id number] HTP CHRISTIANA BAILEY Completed: Technologist: Resulted: 05/15/2023 15:43 HTP 05/15/2023 16:13 Exercise Nuclear Stress Test Date: 05/15/2023 02:18 PM EST Ordering Provider: CHRISTIANA BAILEY Referring Provider: CHRISTIANA BAILEY ID number: [id number] Date of : 1940 Age: 82Y Indication [...] em Smoking History Never smoker (Never Smoked) 783327672 SNOMED CT Sex Female Medications Medication Start Date End Date Route Frequency Dose Code Code System Medication Instructions Home Meds Atorvastatin Calcium 20MG Oral Tablet 08/20/2019 Unknown ORAL BEDTIME 20 MILLIGRAMS 650597 RxNorm TAKE 20 MILLIGRAMS ORAL BEDTIME Fish Oil 1000MG Oral Capsule, Liquid Filled 08/20/2019 03/18/20 24 ORAL DAILY 3 CAPSULE 341503 RxNorm TAKE 3 CAPSULE ORAL DAILY Gabapentin 800MG Oral Tablet 08/20/2019 03/18/20 24 ORAL TWICE A DAY 1 TABLET 973164 RxNorm TAKE 1 TABLET ORAL TWICE A DAY Lisinopril 20MG Oral Tablet 08/20/2019 03/18/20 24 ORAL DAILY 20 MILLIGRAMS 725650 RxNorm TAKE 20 MILLIGRAMS ORAL DAILY Multiple Vitamin Formula Oral Tablet 08/20/2019 03/18/20 24 ORAL DAILY 1 unit(s) 5790221 RxNorm TAKE 1 EACH ORAL DAILY Pramipexole Dihydrochlorid e 0.125MG Oral Tablet 08/20/2019 09/30/19 24 ORAL BEDTIME 2 TABLET 503570 RxNorm TAKE 2 TABLET ORAL BEDTIME glipiZIDE 10MG Oral Tablet, Extended Release 08/20/2019 Unknown ORAL DAILY 10 MILLIGRAMS 653800 RxNorm TAKE 10 MILLIGRAMS ORAL DAILY metFORMIN HCl 1000MG Oral Tablet 08/20/2019 Unknown ORAL TWICE A DAY WITH FOOD 1000 MILLIGRAMS 047317 RxNorm TAKE 1000 MILLIGRAMS ORAL TWICE A DAY WITH FOOD Keflex 500MG Oral Capsule 01/02/2022 09/30/19 24 ORAL THREE TIMES A DAY 1 CAPSULE 183300 RxNorm TAKE 1 CAPSULE ORAL THREE TIMES A DAY Nystatin 350005O/1ML Oral Suspension 01/02/2022 09/30/19 24 ORAL FOUR TIMES A DAY 5 mL 886575 RxNorm TAKE 5 mL ORAL FOUR TIMES A DAY Cephalexin 500MG Oral Tablet 03/17/2024 03/19/20 24 ORAL TWICE A DAY 1 TABLET 908584 RxNorm TAKE 1 TABLET ORAL TWICE A DAY x 7 days Acetaminophen 500MG Oral Tablet 03/18/2024 03/18/20 24 ORAL NEEDED EVERY 6 HOURS 2 TABLET 962992 RxNorm TAKE 2 TABLET (OR 3 TABLETS regular strength 325mg) ORAL EVERY 6 HOURS FOR 1-2 DAYS THEN NEEDED FOR Fever/Pain (NEXT DOSES 6AM AND 12 NOON) Ibuprofen 200MG Oral Tablet 03/18/2024 03/18/20 24 ORAL EVERY 6 HOURS 2 TABLET 850816 RxNorm TAKE 2 TABLET ORAL EVERY 6 HOURS FOR 24 HOURS THEN NEEDED. (NEXT DOSES at 4AM AND 10AM) Aspirin 81MG Oral Tablet, Enteric Coated 03/19/2024 Unknown ORAL DAILY 81 MILLIGRAMS 751235 RxNorm TAKE 81 MILLIGRAMS ORAL DAILY Carvedilol 6.25MG Oral Tablet 03/19/2024 Unknown ORAL TWICE A DAY 6.25 MILLIGRAMS 699451 RxNorm TAKE 6.25 MILLIGRAMS ORAL TWICE A DAY Fish Oil [place]-3 1000 MG Oral Capsule, Liquid Filled 03/19/2024 Unknown ORAL DAILY 1000 MG RxNorm TAKE 10 00 MG ORAL DAILY Gabapentin 600MG Oral Tablet 03/19/2024 Unknown ORAL TWICE A DAY 600 MILLIGRAMS 151748 RxNorm TAKE 600 MILLIGRAMS ORAL TWICE A DAY Lisinopril 10MG Oral Tablet 03/19/2024 Unknown ORAL DAILY 10 MILLIGRAMS 349172 RxNorm TAKE 10 MILLIGRAMS ORAL DAILY Multiple [...] Tablet 03/19/2024 Unknown ORAL BEDTIME 0.5 MILLIGRAMS 277886 RxNorm TAKE 0.5 MILLIGRAMS ORAL BEDTIME Ventolin HFA 0.09MG/1Actuat ion Inhalation Suspension 03/19/2024 Unknown INHALA TION NEEDED EVERY 4 HOURS 2 unit(s) 509605 RxNorm 2 EACH INHALATION NEEDED EVERY 4 HOURS Victoza 6MG/1ML Subcutaneous Solution 03/19/2024 Unknown SUBCUT ANEOUS 1.8 MILLILITERS 191592 RxNorm INJECT 1.8 MILLILITERS SUBCUTANEOU S Cefdinir [...] Code Code System URINARY TRACT INFECTION active 588764 05 SNOMED-CT HYPOTENSION active 78940846 SNOMED-C T HYPOKALEMIA active 82607058 SNOMED-C T SEPSIS active 96271091 SNOMED-CT CIRRHOSIS - NON-ALCOHOLIC 01/02/2022 resolved 266 116855 SNOMED-CT HTN 08/20/2019 resolved 33826433 SNOMED-CT HIGH CHOLESTEROL 10/01/2023 resolved 78048507 SN OMED-CT PERSONAL HISTORY OF BLADDER CA 08/20/2019 resolved 934822630 SNOMED-CT NON-INSULIN DEPENDENT DIABETES MELLITUS 08/20/2019 resolved 93088467 SNOMED-CT 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
--- OUTSIDE RECORDS SUMMARY | 2024-04-20 15:45 | XMS_ITS ---
Author Organization Unknown Address [address] [place] [address] [phone] Phone Care Team Providers Care Aluminizer Name Role Phone KSENIA Gallo Attending Unavailable ERAN Viera Primary Unavailable Results BNP (PRO-B NATRIURETIC PEPTI [place]) - Collect Date/Time: 05/06/2023 11:05 [facility] ID: [id number] [address] [place] [address], [address] LOINC: 57153-4 Test Value Unit Reference Range Code Code System Flag NT-proBNP 63.0 pg/mL L=0.0 H=450 17029-6 LOINC TROPONIN HIGH SENSITIVITY* - Collect Date/Time: 05/06/2023 11:05 [facility] ID: [id number] [address] [place] [address], [address] LOINC: 59300-2 Test Value Unit Reference Range Code Code System Flag TROPONIN HS 4.8 pg/mL L=0.0 H=60.4 Specimen seq. RANDOM TSH THYROID STIMULATING HORM ONE* - Collect Date/Time: 05/06/2023 11:05 [facility] ID: [id number] [address] [place] [address], [address] LOINC: 3014-8 Test Value Unit Reference Range Code Code System Flag TSH 1.873 uIU/mL L=0.360 H=3.740 3014-8 LOINC HEPATIC FUNCTION PANEL - Col lect Date/Time: 05/06/2023 11:05 [facility] ID: [id number] [address] [place] [address], [id number] LOINC: 02598-0 Test Value Unit Reference Range Code Code [...] PANEL* - Collect Date/ Time: 05/06/2023 11:05 [facility] ID: [id number] [address] [place], [place], [id number] LOINC: Test Value Unit Reference Range Code Code System Flag FASTING STATUS: NOT KNOWN CHOLESTEROL 102 mg/dL L=0 H=200 2093-3 LOINC TRIGLYCERIDES 134 mg/dL L=57 H=256 2571-8 LOINC HDL 42 mg/dL L=38 H=92 2085-9 LOINC non-HDL-C 60 mg/dL L=0 H=160 24435-9 LOINC LDL (CALC) 33 mg/dL L=0 H=130 53217-6 LOINC % HDL 41.2 % Chol/HDL Ratio 2.4 L=0.0 H=4.4 9830-1 LOINC CHD Relative Risk 0.5 x Avg L=0.0 H=1.0 LDL/HDL Ratio 0.8 L=0.0 H=3.2 82614-7 LOINC CHD Relative Risk. 0.2 x Avg L=0.0 H=1.0 CBC W/ DIFFERENTIAL* - Colle ct Date/Time: 05/06/2023 11:05 [facility] ID: [id number] [address] [place] [address], [place], [address] LOINC: 51256-6 Test Value Unit Reference Range Code Code System Flag WBC 4.65 th/cmm L=5.00 H=10.00 6690-2 LOINC L NEUT % 64.5 % L=40.0 H=80.0 LYMPH % 20.0 % L=10.0 H=50.0 MONO % 12.3 % L=2.0 H=12.0 88461-8 LOINC H EOS % 2.6 % L=0.0 H=8.0 BASO % 0.4 % L=0.0 H=3.0 IG % 0.2 % L=0.0 H=1.1 2514-8 LOINC NRBC % 0.0 % L=0.0 H=0.0 20457-4 LOINC NEUT abs count 3.0 th/cmm L=1.6 H=8.4 751-8 LOINC LYMPH abs count 0.9 th/cmm L=1.5 H=4.0 731-0 LOINC L MONO abs count 0.6 th/cmm L=0.2 H=1.0 742-7 LOINC EOS abs count 0.1 th/cmm L=0.0 H=0.5 711-2 LOINC BASO abs count 0.0 th/cmm L=0.0 H=0.2 704-7 LOINC IG abs count 0.0 th/cmm L=0.0 H=0.1 00637-7 LOINC NRBC abs count 0.0 mil/cmm L=0.0 H=0.0 97335-0 LOINC RBC 4.22 mil/cmm L=3.90 H=5.40 789-8 [...] PANEL (BMP) - Collect Date/Time: 05/06/2023 11:05 [facility] ID: [id number] [address] [place] [address], [address] LOINC: 02072-7 Test Value Unit Reference Range Code Code [...] H=34 2028-9 LOINC ANION GAP 9.8 mmol/L 05497-3 LOINC CALCIUM SERUM 9.4 mg/dL L=8.2 H=10.2 19141-0 LOINC AGE 82 years eGFR (non-Afr.Amer.) 59 mL/min 47470-4 LOINC eGFR (Afr-Armenian) 72 mL/min 14200-6 LOINC Social History Type Status Start Date End Date Code Code Syst em Smoking History Never smoker (Never Smoked) [id number] SNOMED CT Sex Female Medications Medication Start Date End Date Route Frequency Dose Code Code System Medication Instructions Home Meds Atorvastatin Calcium 20MG Oral Tablet 08/20/2019 Unknown ORAL BEDTIME 20 MILLIGRAMS 307954 RxNorm TAKE 20 MILLIGRAMS ORAL BEDTIME Fish Oil 1000MG Oral Capsule, Liquid Filled 08/20/2019 03/18/20 24 ORAL DAILY 3 CAPSULE 166830 RxNorm TAKE 3 CAPSULE ORAL DAILY Gabapentin 800MG Oral Tablet 08/20/2019 03/18/20 24 ORAL TWICE A DAY 1 TABLET 780689 RxNorm TAKE 1 TABLET ORAL TWICE A DAY Lisinopril 20MG Oral Tablet 08/20/2019 03/18/20 24 ORAL DAILY 20 MILLIGRAMS 113432 RxNorm TAKE 20 MILLIGRAMS ORAL DAILY Multiple Vitamin Formula Oral Tablet 08/20/2019 03/18/20 24 ORAL DAILY 1 unit(s) 1291547 RxNorm TAKE 1 EACH ORAL DAILY Pramipexole Dihydrochlorid e 0.125MG Oral Tablet 08/20/2019 09/30/19 24 ORAL BEDTIME 2 TABLET 468697 RxNorm TAKE 2 TABLET ORAL BEDTIME glipiZIDE 10MG Oral Tablet, Extended Release 08/20/2019 Unknown ORAL DAILY 10 MILLIGRAMS 637154 RxNorm TAKE 10 MILLIGRAMS ORAL DAILY metFORMIN HCl 1000MG Oral Tablet 08/20/2019 Unknown ORAL TWICE A DAY WITH FOOD 1000 MILLIGRAMS 023110 RxNorm TAKE 1000 MILLIGRAMS ORAL TWICE A DAY WITH FOOD Keflex 500MG Oral Capsule 01/02/2022 09/30/19 24 ORAL THREE TIMES A DAY 1 CAPSULE 727103 RxNorm TAKE 1 CAPSULE ORAL THREE TIMES A DAY Nystatin 399632R/1ML Oral Suspension 01/02/2022 09/30/19 24 ORAL FOUR TIMES A DAY 5 mL 323909 RxNorm TAKE 5 mL ORAL FOUR TIMES A DAY Cephalexin 500MG Oral Tablet 03/17/2024 03/19/20 24 ORAL TWICE A DAY 1 TABLET 124543 RxNorm TAKE 1 TABLET ORAL TWICE A DAY x 7 days Acetaminophen 500MG Oral Tablet 03/18/2024 03/18/20 24 ORAL NEEDED EVERY 6 HOURS 2 TABLET 317425 RxNorm TAKE 2 TABLET (OR 3 TABLETS regular strength 325mg) ORAL EVERY 6 HOURS FOR 1-2 DAYS THEN NEEDED FOR Fever/Pain (NEXT DOSES 6AM AND 12 NOON) Ibuprofen 200MG Oral Tablet 03/18/2024 03/18/20 24 ORAL EVERY 6 HOURS 2 TABLET 923976 RxNorm TAKE 2 TABLET ORAL EVERY 6 HOURS FOR 24 HOURS THEN NEEDED. (NEXT DOSES at 4AM AND 10AM) Aspirin 81MG Oral Tablet, Enteric Coated 03/19/2024 Unknown ORAL DAILY 81 MILLIGRAMS 833826 RxNorm TAKE 81 MILLIGRAMS ORAL DAILY Carvedilol 6.25MG Oral Tablet 03/19/2024 Unknown ORAL TWICE A DAY 6.25 MILLIGRAMS 114225 RxNorm TAKE 6.25 MILLIGRAMS ORAL TWICE A DAY Fish Oil [place]-3 1000 MG Oral Capsule, Liquid Filled 03/19/2024 Unknown ORAL DAILY 1000 MG RxNorm TAKE 10 00 MG ORAL DAILY Gabapentin 600MG Oral Tablet 03/19/2024 Unknown ORAL TWICE A DAY 600 MILLIGRAMS 680140 RxNorm TAKE 600 MILLIGRAMS ORAL TWICE A DAY Lisinopril 10MG Oral Tablet 03/19/2024 Unknown ORAL DAILY 10 MILLIGRAMS 542520 RxNorm TAKE 10 MILLIGRAMS ORAL DAILY Multiple [...] Tablet 03/19/2024 Unknown ORAL BEDTIME 0.5 MILLIGRAMS 384057 RxNorm TAKE 0.5 MILLIGRAMS ORAL BEDTIME Ventolin HFA 0.09MG/1Actuat ion Inhalation Suspension 03/19/2024 Unknown INHALA TION NEEDED EVERY 4 HOURS 2 unit(s) 008428 RxNorm 2 EACH INHALATION NEEDED EVERY 4 HOURS Victoza 6MG/1ML Subcutaneous Solution 03/19/2024 Unknown SUBCUT ANEOUS 1.8 MILLILITERS 109950 RxNorm INJECT 1.8 MILLILITERS SUBCUTANEOU S Cefdinir [...] Code Code System URINARY TRACT INFECTION active 260249 05 SNOMED-CT HYPOTENSION active 34848942 SNOMED-C T HYPOKALEMIA active 23204026 SNOMED-C T SEPSIS active 53517549 SNOMED-CT CIRRHOSIS - NON-ALCOHOLIC 01/02/2022 resolved 266 734755 SNOMED-CT HTN 08/20/2019 resolved 43372304 SNOMED-CT HIGH CHOLESTEROL 10/01/2023 resolved 75196302 SN OMED-CT PERSONAL HISTORY OF BLADDER CA 08/20/2019 resolved 529003216 SNOMED-CT NON-INSULIN DEPENDENT DIABETES MELLITUS 08/20/2019 resolved 71483731 SNOMED-CT 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
--- OUTSIDE RECORDS SUMMARY | 2024-04-20 15:46 | XMS_ITS ---
Author Organization Unknown Address [address] [place] [address] [phone] Phone Care Team Providers Care Sheet Tester Name Role Phone MCCORMACK CRYSTAL Gallo Attending Unavailable ERAN Viera Primary Unavailable Results TROPONIN HIGH SENSITIVITY* - Collect Date/Time: 08/28/2023 12:51 ID: [id number] [address] [place] [address], [address] LOINC: 98014-7 Test Value Unit Reference Range Code Code System Flag TROPONIN HS < 4.0 pg/mL L=0.0 H=60.4 Specimen seq. RANDOM LIPID PANEL* - Collect Date/ Time: 08/28/2023 12:51 ID: [id number] [address] [place] [address], [id number] LOINC: Test Value Unit Reference Range Code Code System Flag FASTING STATUS: NON FASTING CHOLESTEROL 98 mg/dL L=0 H=200 2093-3 LOINC TRIGLYCERIDES 155 mg/dL L=57 H=256 2571-8 LOINC HDL 41 mg/dL L=38 H=92 2085-9 LOINC non-HDL-C 57 mg/dL L=0 H=160 93524-7 LOINC LDL (CALC) 26 mg/dL L=0 H=130 18471-7 LOINC % HDL 41.8 % Chol/HDL Ratio 2.4 L=0.0 H=4.4 9830-1 LOINC CHD Relative Risk 0.5 x Avg L=0.0 H=1.0 LDL/HDL Ratio 0.6 L=0.0 H=3.2 26616-5 LOINC CHD Relative Risk. 0.2 x Avg L=0.0 H=1.0 HEPATIC FUNCTION PANEL - Col lect Date/Time: 08/28/2023 12:51 ID: [id number] [address] [place], [place], [phone] LOINC: 37379-1 Test Value Unit Reference Range Code Code [...] DIFFERENTIAL* - Colle ct Date/Time: 08/28/2023 12:51 ID: [id number] [address] [place], [place], [address] LOINC: 29855-6 Test Value Unit Reference Range Code Code System Flag WBC 4.62 th/cmm L=5.00 H=10.00 6690-2 LOINC L NEUT % 60.7 % L=40.0 H=80.0 LYMPH % 29.2 % L=10.0 H=50.0 MONO % 8.2 % L=2.0 H=12.0 77808-3 LOINC EOS % 1.3 % L=0.0 H=8.0 BASO % 0.4 % L=0.0 H=3.0 IG % 0.2 % L=0.0 H=1.1 2514-8 LOINC NRBC % 0.0 % L=0.0 H=0.0 64615-5 LOINC NEUT abs count 2.8 th/cmm L=1.6 H=8.4 751-8 LOINC LYMPH abs count 1.4 th/cmm L=1.5 H=4.0 731-0 LOINC L MONO abs count 0.4 th/cmm L=0.2 H=1.0 742-7 LOINC EOS abs count 0.1 th/cmm L=0.0 H=0.5 711-2 LOINC BASO abs count 0.0 th/cmm L=0.0 H=0.2 704-7 LOINC IG abs count 0.0 th/cmm L=0.0 H=0.1 07027-2 LOINC NRBC abs count 0.0 mil/cmm L=0.0 H=0.0 17112-5 LOINC RBC 4.10 mil/cmm L=3.90 H=5.40 789-8 [...] PEPTI [place]) - Collect Date/Time: 08/28/2023 12:51 ID: [id number] [address] [place] [address], [address] LOINC: 55119-7 Test Value Unit Reference Range Code Code System Flag NT-proBNP 205.0 pg/mL L=0.0 H=450 31724-6 LOINC BASIC METABOLIC PANEL (BMP) - Collect Date/Time: 08/28/2023 12:51 ID: [id number] [address] [place] [address], [address] LOINC: 93289-8 Test Value Unit Reference Range Code Code [...] H=34 2028-9 LOINC ANION GAP 9.4 mmol/L 04009-3 LOINC CALCIUM SERUM 9.7 mg/dL L=8.2 H=10.2 94166-5 LOINC AGE 83 years eGFR (non-Afr.Amer.) 71 mL/min 44464-7 LOINC eGFR (Afr-Uzbek) 86 mL/min 04788-6 LOINC Social History Type Status Start Date End Date Code Code Syst em Smoking History Never smoker (Never Smoked) [id number] SNOMED CT Sex Female Medications Medication Start Date End Date Route Frequency Dose Code Code System Medication Instructions Home Meds Atorvastatin Calcium 20MG Oral Tablet 08/20/2019 Unknown ORAL BEDTIME 20 MILLIGRAMS 215180 RxNorm TAKE 20 MILLIGRAMS ORAL BEDTIME Fish Oil 1000MG Oral Capsule, Liquid Filled 08/20/2019 03/18/20 24 ORAL DAILY 3 CAPSULE 641103 RxNorm TAKE 3 CAPSULE ORAL DAILY Gabapentin 800MG Oral Tablet 08/20/2019 03/18/20 24 ORAL TWICE A DAY 1 TABLET 221710 RxNorm TAKE 1 TABLET ORAL TWICE A DAY Lisinopril 20MG Oral Tablet 08/20/2019 03/18/20 24 ORAL DAILY 20 MILLIGRAMS 384777 RxNorm TAKE 20 MILLIGRAMS ORAL DAILY Multiple Vitamin Formula Oral Tablet 08/20/2019 03/18/20 24 ORAL DAILY 1 unit(s) 7720144 RxNorm TAKE 1 EACH ORAL DAILY Pramipexole Dihydrochlorid e 0.125MG Oral Tablet 08/20/2019 09/30/19 24 ORAL BEDTIME 2 TABLET 161394 RxNorm TAKE 2 TABLET ORAL BEDTIME glipiZIDE 10MG Oral Tablet, Extended Release 08/20/2019 Unknown ORAL DAILY 10 MILLIGRAMS 749000 RxNorm TAKE 10 MILLIGRAMS ORAL DAILY metFORMIN HCl 1000MG Oral Tablet 08/20/2019 Unknown ORAL TWICE A DAY WITH FOOD 1000 MILLIGRAMS 513478 RxNorm TAKE 1000 MILLIGRAMS ORAL TWICE A DAY WITH FOOD Keflex 500MG Oral Capsule 01/02/2022 09/30/19 24 ORAL THREE TIMES A DAY 1 CAPSULE 997543 RxNorm TAKE 1 CAPSULE ORAL THREE TIMES A DAY Nystatin 176576M/1ML Oral Suspension 01/02/2022 09/30/19 24 ORAL FOUR TIMES A DAY 5 mL 412229 RxNorm TAKE 5 mL ORAL FOUR TIMES A DAY Cephalexin 500MG Oral Tablet 03/17/2024 03/19/20 24 ORAL TWICE A DAY 1 TABLET 939235 RxNorm TAKE 1 TABLET ORAL TWICE A DAY x 7 days Acetaminophen 500MG Oral Tablet 03/18/2024 03/18/20 24 ORAL NEEDED EVERY 6 HOURS 2 TABLET 682126 RxNorm TAKE 2 TABLET (OR 3 TABLETS regular strength 325mg) ORAL EVERY 6 HOURS FOR 1-2 DAYS THEN NEEDED FOR Fever/Pain (NEXT DOSES 6AM AND 12 NOON) Ibuprofen 200MG Oral Tablet 03/18/2024 03/18/20 24 ORAL EVERY 6 HOURS 2 TABLET 352376 RxNorm TAKE 2 TABLET ORAL EVERY 6 HOURS FOR 24 HOURS THEN NEEDED. (NEXT DOSES at 4AM AND 10AM) Aspirin 81MG Oral Tablet, Enteric Coated 03/19/2024 Unknown ORAL DAILY 81 MILLIGRAMS 765863 RxNorm TAKE 81 MILLIGRAMS ORAL DAILY Carvedilol 6.25MG Oral Tablet 03/19/2024 Unknown ORAL TWICE A DAY 6.25 MILLIGRAMS 942625 RxNorm TAKE 6.25 MILLIGRAMS ORAL TWICE A DAY Fish Oil [place]-3 1000 MG Oral Capsule, Liquid Filled 03/19/2024 Unknown ORAL DAILY 1000 MG RxNorm TAKE 10 00 MG ORAL DAILY Gabapentin 600MG Oral Tablet 03/19/2024 Unknown ORAL TWICE A DAY 600 MILLIGRAMS 071112 RxNorm TAKE 600 MILLIGRAMS ORAL TWICE A DAY Lisinopril 10MG Oral Tablet 03/19/2024 Unknown ORAL DAILY 10 MILLIGRAMS 010486 RxNorm TAKE 10 MILLIGRAMS ORAL DAILY Multiple [...] Tablet 03/19/2024 Unknown ORAL BEDTIME 0.5 MILLIGRAMS 086101 RxNorm TAKE 0.5 MILLIGRAMS ORAL BEDTIME Ventolin HFA 0.09MG/1Actuat ion Inhalation Suspension 03/19/2024 Unknown INHALA TION NEEDED EVERY 4 HOURS 2 unit(s) 919241 RxNorm 2 EACH INHALATION NEEDED EVERY 4 HOURS Victoza 6MG/1ML Subcutaneous Solution 03/19/2024 Unknown SUBCUT ANEOUS 1.8 MILLILITERS 684104 RxNorm INJECT 1.8 MILLILITERS SUBCUTANEOU S Cefdinir [...] Code Code System URINARY TRACT INFECTION active 536975 05 SNOMED-CT HYPOTENSION active 75170801 SNOMED-C T HYPOKALEMIA active 11249711 SNOMED-C T SEPSIS active 50490296 SNOMED-CT CIRRHOSIS - NON-ALCOHOLIC 01/02/2022 resolved 266 001723 SNOMED-CT HTN 08/20/2019 resolved 26998608 SNOMED-CT HIGH CHOLESTEROL 10/01/2023 resolved 69748124 SN OMED-CT PERSONAL HISTORY OF BLADDER CA 08/20/2019 resolved 844881077 SNOMED-CT NON-INSULIN DEPENDENT DIABETES MELLITUS 08/20/2019 resolved 38347519 SNOMED-CT 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
--- OUTSIDE RECORDS SUMMARY | 2024-04-20 15:47 | XMS_ITS ---
Author Organization Unknown Address [address] [place] [address] [phone] Phone Care Team Providers Care Glass Glazier Name Role Phone KSENIA Gallo Attending Unavailable ERAN Viera Primary Unavailable Social History Type Status Start Date End Date Code Code Syst em Smoking History Never smoker (Never Smoked) [id number] SNOMED CT Sex Female Medications Medication Start Date End Date Route Frequency Dose Code Code System Medication Instructions Home Meds Atorvastatin Calcium 20MG Oral Tablet 08/20/2019 Unknown ORAL BEDTIME 20 MILLIGRAMS 099767 RxNorm TAKE 20 MILLIGRAMS ORAL BEDTIME Fish Oil 1000MG Oral Capsule, Liquid Filled 08/20/2019 03/18/20 24 ORAL DAILY 3 CAPSULE 316009 RxNorm TAKE 3 CAPSULE ORAL DAILY Gabapentin 800MG Oral Tablet 08/20/2019 03/18/20 24 ORAL TWICE A DAY 1 TABLET 725528 RxNorm TAKE 1 TABLET ORAL TWICE A DAY Lisinopril 20MG Oral Tablet 08/20/2019 03/18/20 24 ORAL DAILY 20 MILLIGRAMS 151815 RxNorm TAKE 20 MILLIGRAMS ORAL DAILY Multiple Vitamin Formula Oral Tablet 08/20/2019 03/18/20 24 ORAL DAILY 1 unit(s) 9718906 RxNorm TAKE 1 EACH ORAL DAILY glipiZIDE 10MG Oral Tablet, Extended Release 08/20/2019 Unknown ORAL DAILY 10 MILLIGRAMS 053005 RxNorm TAKE 10 MILLIGRAMS ORAL DAILY metFORMIN HCl 1000MG Oral Tablet 08/20/2019 Unknown ORAL TWICE A DAY WITH FOOD 1000 MILLIGRAMS 733097 RxNorm TAKE 1000 MILLIGRAMS ORAL TWICE A DAY WITH FOOD Cephalexin 500MG Oral Tablet 03/17/2024 03/19/20 24 ORAL TWICE A DAY 1 TABLET 443244 RxNorm TAKE 1 TABLET ORAL TWICE A DAY x 7 days Acetaminophen 500MG Oral Tablet 03/18/2024 03/18/20 24 ORAL NEEDED EVERY 6 HOURS 2 TABLET 585395 RxNorm TAKE 2 TABLET (OR 3 TABLETS regular strength 325mg) ORAL EVERY 6 HOURS FOR 1-2 DAYS THEN NEEDED FOR Fever/Pain (NEXT DOSES 6AM AND 12 NOON) Ibuprofen 200MG Oral Tablet 03/18/2024 03/18/20 24 ORAL EVERY 6 HOURS 2 TABLET 416094 RxNorm TAKE 2 TABLET ORAL EVERY 6 HOURS FOR 24 HOURS THEN NEEDED. (NEXT DOSES at 4AM AND 10AM) Aspirin 81MG Oral Tablet, Enteric Coated 03/19/2024 Unknown ORAL DAILY 81 MILLIGRAMS 030588 RxNorm TAKE 81 MILLIGRAMS ORAL DAILY Carvedilol 6.25MG Oral Tablet 03/19/2024 Unknown ORAL TWICE A DAY 6.25 MILLIGRAMS 19990607 RxNorm TAKE 6.25 MILLIGRAMS ORAL TWICE A DAY Fish Oil [place]-3 1000 MG Oral Capsule, Liquid Filled 03/19/2024 Unknown ORAL DAILY 1000 MG RxNorm TAKE 10 00 MG ORAL DAILY Gabapentin 600MG Oral Tablet 03/19/2024 Unknown ORAL TWICE A DAY 600 MILLIGRAMS 394445 RxNorm TAKE 600 MILLIGRAMS ORAL TWICE A DAY Lisinopril 10MG Oral Tablet 03/19/2024 Unknown ORAL DAILY 10 MILLIGRAMS 396109 RxNorm TAKE 10 MILLIGRAMS ORAL DAILY Multiple Vitamins Oral Tablet 03/19/2024 Unknown ORAL DAILY 1 unit(s) RxNorm TAKE 1 EACH ORAL DAILY Nitroglycerin 0.4MG Sublingual Tablet 03/19/2024 Unknown SUBLIN GUAL NEEDED 0.4 MILLIGRAMS 369270 RxNorm DISSOLVE 0.4 MILLIGRAMS SUBLINGUAL NEEDED Omeprazole 40MG Oral Capsule, Delayed Release 03/19/2024 Unknown ORAL DAILY 40 MILLIGRAMS 20020517 RxNorm TAKE 40 MILLIGRAMS ORAL DAILY Pramipexole Dihydrochlorid e 0.5MG Oral Tablet 03/19/2024 Unknown ORAL BEDTIME 0.5 MILLIGRAMS 903086 RxNorm TAKE 0.5 MILLIGRAMS ORAL BEDTIME Ventolin HFA 0.09MG/1Actuat ion Inhalation Suspension 03/19/2024 Unknown INHALA TION NEEDED EVERY 4 HOURS 2 unit(s) 541806 RxNorm 2 EACH INHALATION NEEDED EVERY 4 HOURS Victoza 6MG/1ML Subcutaneous Solution 03/19/2024 Unknown SUBCUT ANEOUS 1.8 MILLILITERS 869371 RxNorm INJECT 1.8 MILLILITERS SUBCUTANEOU S Cefdinir [...] Code Code System URINARY TRACT INFECTION active 728251 05 SNOMED-CT HYPOTENSION active 51689490 SNOMED-C T HYPOKALEMIA active 48447524 SNOMED-C T SEPSIS active 92820014 SNOMED-CT CIRRHOSIS - NON-ALCOHOLIC 01/02/2022 resolved 266 636423 SNOMED-CT HTN 08/20/2019 resolved 18334090 SNOMED-CT HIGH CHOLESTEROL 10/01/2023 resolved 70273230 SN OMED-CT PERSONAL HISTORY OF BLADDER CA 08/20/2019 resolved 566058486 SNOMED-CT NON-INSULIN DEPENDENT DIABETES MELLITUS 08/20/2019 resolved 56387078 SNOMED-CT 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 343355211 SNOMED-CT Allergies and Adverse Reactions Allergy Substance Reaction Severity Start Date Concern Status Co de Code System CODEINE Active 2670 RxNorm Plan of Treatment PFT COMPLETE W BROCHODILATER 04/23/2024 NM MPI STR/RST 05/15/2023 CT CHEST W/O CONTRAST 05/18/2022 CT CHEST W/O CONTRAST 03/26/2022 MRI BRAIN W/O CONTRAST 01/25/2021 Encounters Encounter Diagnosis Start Date Code Code Sys tem Aortic stenosis, non-rheumatic 11/13/2023 484661860 SNOMED-CT Personal Care Team Section Performer Name Performer Role Active Date Inactive Da te
--- OUTSIDE RECORDS SUMMARY | 2024-04-20 15:48 | XMS_ITS ---
Author Organization Unknown Address [address] [place] [address] [phone] Phone Care Team Providers Care Group Sales Representative Name Role Phone LIA TENA Registered Nurse UnavailGarret ESCALANTE Registered Nurse Unavailab Griffiths Attending Unavailable KEVIN CURIEL Unavailable ERAN Viera Primary Unavailable UNLISTED PROVIDER - REQUESTED Xhandoff Un available Results NOVA GLUCOSE FINGER HEEL CAP ILLARY - Collect Date/Time: 03/19/2024 08:26 [facility] ID: [id number] [address] [place] [address], [phone] LOINC: 31417-1 Test Value Unit Reference Range Code Code System Flag GLUCOSE CAP 87 mg/dL L=70 H=116 83672-4 LOINC MAGNESIUM SERUM* - Collect D ate/Time: 03/19/2024 07:50 [facility] ID: [id number] [address] [place] [address], [address] LOINC: 86763-5 Test Value Unit Reference Range Code Code System Flag MAGNESIUM 1.2 mg/dL L=1.6 H=2.3 44026-7 LOINC L BASIC METABOLIC PANEL (BMP) - Collect Date/Time: 03/19/2024 07:50 [facility] ID: [id number] [address] [place] [address], [address] LOINC: 98268-7 Test Value Unit Reference Range Code Code [...] 2028-9 LOINC L ANION GAP 7.4 mmol/L 59475-2 LOINC CALCIUM SERUM 8.5 mg/dL L=8.4 H=10.2 50299-5 LOINC AGE 83 years eGFR (non-Afr.Amer.) 44 mL/min 20111-0 LOINC eGFR (Afr-Citizen Of [place]) 53 mL/min 44943-5 LOINC LACTIC ACID - Collect Date/T ellis: 03/19/2024 07:50 [facility] ID: [id number] [address] [place] [address], [address] LOINC: Test Value Unit Reference Range Code Code System Flag LACTIC ACID 1.8 mmol/L L=0.7 H=2.1 72443-9 LOINC CBC W/ DIFFERENTIAL* - Colle ct Date/Time: 03/19/2024 07:50 [facility] ID: [id number] [address] [place] [address], [address] LOINC: 02600-1 Test Value Unit Reference Range Code Code System Flag WBC 12.62 th/cmm L=5.00 H=10.00 6690-2 LOINC H NEUT % 80.0 % L=40.0 H=80.0 LYMPH % 6.3 % L=10.0 H=50.0 L MONO % 12.7 % L=2.0 H=12.0 75388-4 LOINC H EOS % 0.2 % L=0.0 H=8.0 BASO % 0.2 % L=0.0 H=3.0 IG % 0.6 % L=0.0 H=1.1 2514-8 LOINC NRBC % 0.0 % L=0.0 H=0.0 88789-1 LOINC NEUT abs count 10.1 th/cmm L=1.6 H=8.4 751-8 LOINC H LYMPH abs count 0.8 th/cmm L=1.5 H=4.0 731-0 LOINC L MONO abs count 1.6 th/cmm L=0.2 H=1.0 742-7 LOINC H EOS abs count 0.0 th/cmm L=0.0 H=0.5 711-2 LOINC BASO abs count 0.0 th/cmm L=0.0 H=0.2 704-7 LOINC IG abs count 0.1 th/cmm L=0.0 H=0.1 77212-7 LOINC NRBC abs count 0.0 mil/cmm L=0.0 H=0.0 52977-1 LOINC RBC 3.59 mil/cmm L=3.90 H=5.40 789-8 [...] CAP ILLARY - Collect Date/Time: 03/18/2024 21:04 [facility] ID: [id number] [address] [place], [place], [phone] LOINC: 96476-4 Test Value Unit Reference Range Code Code System Flag GLUCOSE CAP 135 mg/dL L=70 H=116 63821-4 LOINC H CBC W/ DIFFERENTIAL* - Colle ct Date/Time: 03/18/2024 18:00 [facility] ID: [id number] [address] [place], [place], [phone] LOINC: 92916-7 Test Value Unit Reference Range Code Code System Flag WBC 13.71 th/cmm L=5.00 H=10.00 6690-2 LOINC H NEUT % 82.2 % L=40.0 H=80.0 H LYMPH % 4.0 % L=10.0 H=50.0 L MONO % 13.1 % L=2.0 H=12.0 68358-3 LOINC H EOS % 0.1 % L=0.0 H=8.0 BASO % 0.1 % L=0.0 H=3.0 IG % 0.5 % L=0.0 H=1.1 2514-8 LOINC NRBC % 0.0 % L=0.0 H=0.0 82304-0 LOINC NEUT abs count 11.3 th/cmm L=1.6 H=8.4 751-8 LOINC H LYMPH abs count 0.6 th/cmm L=1.5 H=4.0 731-0 LOINC L MONO abs count 1.8 th/cmm L=0.2 H=1.0 742-7 LOINC H EOS abs count 0.0 th/cmm L=0.0 H=0.5 711-2 LOINC BASO abs count 0.0 th/cmm L=0.0 H=0.2 704-7 LOINC IG abs count 0.1 th/cmm L=0.0 H=0.1 00603-0 LOINC NRBC abs count 0.0 mil/cmm L=0.0 H=0.0 27274-1 LOINC RBC 3.51 mil/cmm L=3.90 H=5.40 789-8 [...] PANEL (BMP) - Collect Date/Time: 03/18/2024 18:00 [facility] ID: [id number] [address] [place] [address], [address] LOINC: 60961-7 Test Value Unit Reference Range Code Code [...] 2028-9 LOINC L ANION GAP 7.1 mmol/L 80853-8 LOINC CALCIUM SERUM 8.0 mg/dL L=8.4 H=10.2 61310-0 LOINC L AGE 83 years eGFR (non-Afr.Amer.) 45 mL/min 73571-1 LOINC eGFR (Afr-Citizen Of [place]) 55 mL/min 85610-7 LOINC LACTIC ACID - Collect Date/T ellis: 03/18/2024 18:00 [facility] ID: [id number] [address] [place] [address], [address] LOINC: Test Value Unit Reference Range Code Code System Flag LACTIC ACID 2.3 mmol/L L=0.7 H=2.1 42963-9 LOINC H NOVA GLUCOSE FINGER HEEL CAP ILLARY - Collect Date/Time: 03/18/2024 17:19 [facility] ID: [id number] [address] [place] [address], [id number] LOINC: 14551-3 Test Value Unit Reference Range Code Code System Flag GLUCOSE CAP 141 mg/dL L=70 H=116 33950-9 LOINC H NOVA GLUCOSE FINGER HEEL CAP ILLARY - Collect Date/Time: 03/18/2024 11:59 [facility] ID: [id number] [address] [place] [address], [id number] LOINC: 49102-1 Test Value Unit Reference Range Code Code System Flag GLUCOSE CAP 211 mg/dL L=70 H=116 74374-6 LOINC H LACTIC ACID - Collect Date/T ellis: 03/18/2024 08:00 [facility] ID: [id number] [address] [place] [address], [address] LOINC: Test Value Unit Reference Range Code Code System Flag LACTIC ACID 2.2 mmol/L L=0.7 H=2.1 77596-6 LOINC H NOVA GLUCOSE FINGER HEEL CAP ILLARY - Collect Date/Time: 03/18/2024 07:55 [facility] ID: [id number] [address] [place] [address], [id number] LOINC: 77325-6 Test Value Unit Reference Range Code Code System Flag GLUCOSE CAP 298 mg/dL L=70 H=116 25264-9 LOINC H NOVA GLUCOSE FINGER HEEL CAP ILLARY - Collect Date/Time: 03/18/2024 02:29 [facility] ID: [id number] [address] [place] [address], [phone] LOINC: 18933-1 Test Value Unit Reference Range Code Code System Flag GLUCOSE CAP 199 mg/dL L=70 H=116 38670-7 LOINC H CBC W/ DIFFERENTIAL* - Colle ct Date/Time: 03/18/2024 02:24 [facility] ID: [id number] [address] [place] [address], 56 LOINC: 30085-6 Test Value Unit Reference Range Code Code System Flag WBC 14.26 th/cmm L=5.00 H=10.00 6690-2 LOINC H NEUT % 83.7 % L=40.0 H=80.0 H LYMPH % 3.7 % L=10.0 H=50.0 L MONO % 11.6 % L=2.0 H=12.0 62970-4 LOINC EOS % 0.1 % L=0.0 H=8.0 BASO % 0.1 % L=0.0 H=3.0 IG % 0.8 % L=0.0 H=1.1 2514-8 LOINC NRBC % 0.0 % L=0.0 H=0.0 28400-4 LOINC NEUT abs count 11.9 th/cmm L=1.6 H=8.4 751-8 LOINC H LYMPH abs count 0.5 th/cmm L=1.5 H=4.0 731-0 LOINC L MONO abs count 1.7 th/cmm L=0.2 H=1.0 742-7 LOINC H EOS abs count 0.0 th/cmm L=0.0 H=0.5 711-2 LOINC BASO abs count 0.0 th/cmm L=0.0 H=0.2 704-7 LOINC IG abs count 0.1 th/cmm L=0.0 H=0.1 37129-5 LOINC NRBC abs count 0.0 mil/cmm L=0.0 H=0.0 41514-7 LOINC RBC 3.60 mil/cmm L=3.90 H=5.40 789-8 [...] ACID - Collect Date/T ellis: 03/18/2024 02:24 [facility] ID: [id number] [address] [place] [address], [address] LOINC: Test Value Unit Reference Range Code Code System Flag LACTIC ACID 2.2 mmol/L L=0.7 H=2.1 12344-7 LOINC H BASIC METABOLIC PANEL (BMP) - Collect Date/Time: 03/18/2024 02:24 [facility] ID: [id number] [address] [place] [address], [address] LOINC: 18574-3 Test Value Unit Reference Range Code Code [...] H=30 2028-9 LOINC ANION GAP 5.6 mmol/L 97915-9 LOINC CALCIUM SERUM 8.8 mg/dL L=8.4 H=10.2 02543-9 LOINC AGE 83 years eGFR (non-Afr.Amer.) 52 mL/min 37178-0 LOINC eGFR (Afr-Citizen Of [place]) 63 mL/min 24951-6 LOINC Social History Type Status Start Date End Date Code Code Syst em Smoking History Never smoker (Never Smoked) 695628431 SNOMED CT Sex Female Vital Signs Vital Sign Value Unit [place] Value [place] Unit Date/Time Recent/Initial? Code Code System Body Mass Index 25.47 kg/m2 03/17/2024 23:59 Initial 23777 -5 LOINC Systolic Blood Pressure 122 mm[Hg] [...] Saturation 94 % 2023 07:39 Most Recent 23865 -5 LOINC O2 Saturation 93 % 2023 23:59 Initial 11322 -5 LOINC Pulse 108.0 /min 03/19/2024 07:39 [...] kg 141.31 lbs 03/18/2024 11:36 Most Recent 94330 -7 LOINC Weight 62.14 kg 137.00 lbs 03/17/2024 23:59 Initial 20482 -7 LOINC Medications Medication Start Date End Date Route Frequency Dose Code Code System Medication Instructions Home Meds Atorvastatin Calcium 20MG Oral Tablet 08/20/2019 Unknown ORAL BEDTIME 20 MILLIGRAMS 946026 RxNorm TAKE 20 MILLIGRAMS ORAL BEDTIME Gabapentin 800MG Oral Tablet 08/20/2019 03/18/20 24 ORAL TWICE A DAY 1 TABLET 260783 RxNorm TAKE 1 TABLET ORAL TWICE A DAY Lisinopril 20MG Oral Tablet 08/20/2019 03/18/20 24 ORAL DAILY 20 MILLIGRAMS 068146 RxNorm TAKE 20 MILLIGRAMS ORAL DAILY glipiZIDE 10MG Oral Tablet, Extended Release 08/20/2019 Unknown ORAL DAILY 10 MILLIGRAMS 080281 RxNorm TAKE 10 MILLIGRAMS ORAL DAILY metFORMIN HCl 1000MG Oral Tablet 08/20/2019 Unknown ORAL TWICE A DAY WITH FOOD 1000 MILLIGRAMS 817220 RxNorm TAKE 1000 MILLIGRAMS ORAL TWICE A DAY WITH FOOD Cephalexin 500MG Oral Tablet 03/17/2024 03/19/20 24 ORAL TWICE A DAY 1 TABLET 222729 RxNorm TAKE 1 TABLET ORAL TWICE A DAY x 7 days Acetaminophen 500MG Oral Tablet 03/18/2024 03/18/20 24 ORAL NEEDED EVERY 6 HOURS 2 TABLET 214758 RxNorm TAKE 2 TABLET (OR 3 TABLETS regular strength 325mg) ORAL EVERY 6 HOURS FOR 1-2 DAYS THEN NEEDED FOR Fever/Pain (NEXT DOSES 6AM AND 12 NOON) Ibuprofen 200MG Oral Tablet 03/18/2024 03/18/20 24 ORAL EVERY 6 HOURS 2 TABLET 522969 RxNorm TAKE 2 TABLET ORAL EVERY 6 HOURS FOR 24 HOURS THEN NEEDED. (NEXT DOSES at 4AM AND 10AM) Aspirin 81MG Oral Tablet, Enteric Coated 03/19/2024 Unknown ORAL DAILY 81 MILLIGRAMS 035323 RxNorm TAKE 81 MILLIGRAMS ORAL DAILY Carvedilol 6.25MG Oral Tablet 03/19/2024 Unknown ORAL TWICE A DAY 6.25 MILLIGRAMS 217774 RxNorm TAKE 6.25 MILLIGRAMS ORAL TWICE A DAY Fish Oil [place]-3 1000 MG Oral Capsule, Liquid Filled 03/19/2024 Unknown ORAL DAILY 1000 MG RxNorm TAKE 10 00 MG ORAL DAILY Gabapentin 600MG Oral Tablet 03/19/2024 Unknown ORAL TWICE A DAY 600 MILLIGRAMS 791771 RxNorm TAKE 600 MILLIGRAMS ORAL TWICE A DAY Lisinopril 10MG Oral Tablet 03/19/2024 Unknown ORAL DAILY 10 MILLIGRAMS 092673 RxNorm TAKE 10 MILLIGRAMS ORAL DAILY Multiple [...] Tablet 03/19/2024 Unknown ORAL BEDTIME 0.5 MILLIGRAMS 496108 RxNorm TAKE 0.5 MILLIGRAMS ORAL BEDTIME Ventolin HFA 0.09MG/1Actuat ion Inhalation Suspension 03/19/2024 Unknown INHALA TION NEEDED EVERY 4 HOURS 2 unit(s) 114534 RxNorm 2 EACH INHALATION NEEDED EVERY 4 HOURS Victoza 6MG/1ML Subcutaneous Solution 03/19/2024 Unknown SUBCUT ANEOUS 1.8 MILLILITERS 264101 RxNorm INJECT 1.8 MILLILITERS SUBCUTANEOUS Cefdinir 300MG [...] Code Code System URINARY TRACT INFECTION active 623194 05 SNOMED-CT HYPOTENSION active 12296625 SNOMED-C T HYPOKALEMIA active 12933813 SNOMED-C T SEPSIS active 40308284 SNOMED-CT CIRRHOSIS - NON-ALCOHOLIC 01/02/2022 resolved 266 762069 SNOMED-CT HTN 08/20/2019 resolved 02957792 SNOMED-CT HIGH CHOLESTEROL 10/01/2023 resolved 83165573 SN OMED-CT PERSONAL HISTORY OF BLADDER CA 08/20/2019 resolved 962453939 SNOMED-CT NON-INSULIN DEPENDENT DIABETES MELLITUS 08/20/2019 resolved 65302295 SNOMED-CT 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
--- OUTSIDE RECORDS SUMMARY | 2024-04-20 15:48 | XMS_ITS ---
Author Organization Unknown Address [address] [place] [address] [phone] Phone Care Team Providers Care Beef Pluck Trimmer Name Role Phone ANKIT TYLER Registered Nurse Unavailable LUCY Grimaldo Attending Unavailable KEYANA [facility] Unavailable ERAN Viera Primary Unavailable UNLISTED PROVIDER - REQUESTED Xhandoff Un available Results LACTIC ACID - Collect Date/T ellis: 03/17/2024 16:50 [facility] ID: [id number] - [id number] [address] [place] [address], [address] LOINC: Test Value Unit Reference Range Code Code System Flag LACTIC ACID 1.5 mmol/L L=0.7 H=2.1 87816-3 LOINC COMPREHENSIVE METABOLIC PANE L (CMP) - Collect Date/Time: 03/17/2024 16:32 [facility] ID: [id number] - [id number] [address] [place] [address], [address] LOINC: 61524-3 Test Value Unit Reference Range Code Code [...] H=30 2028-9 LOINC ANION GAP 8.5 mmol/L 31388-6 LOINC CALCIUM SERUM 9.1 mg/dL L=8.4 H=10.2 95229-1 LOINC BILIRUBIN TOTAL 1.0 mg/dL L=0.2 H=1.3 1975-2 LOINC ALK. PHOS. 178 U/L L=38 H=126 6768-6 LOINC H SGOT (AST) 33 U/L L=14 H=36 1920-8 LOINC SGPT (ALT) 33 U/L L=4 H=35 1742-6 LOINC TOTAL PROTEIN 6.8 gm/dL L=6.0 H=8.0 2885-2 LOINC ALBUMIN 3.8 gm/dL L=3.4 H=5.0 1751-7 LOINC AGE 83 years eGFR (non-Afr.Amer.) 76 mL/min 92033-7 LOINC eGFR (Afr-[place] Citizen) 92 mL/min 53212-9 LOINC CBC W/ DIFFERENTIAL* - Colle ct Date/Time: 03/17/2024 16:32 [facility] ID: [id number] [address] [place], [place], [address] LOINC: 84634-1 Test Value Unit Reference Range Code Code System Flag WBC 10.72 th/cmm L=5.00 H=10.00 6690-2 LOINC H NEUT % 79.2 % L=40.0 H=80.0 LYMPH % 5.7 % L=10.0 H=50.0 L MONO % 14.2 % L=2.0 H=12.0 94746-3 LOINC H EOS % 0.1 % L=0.0 H=8.0 BASO % 0.1 % L=0.0 H=3.0 IG % 0.7 % L=0.0 H=1.1 2514-8 LOINC NRBC % 0.0 % L=0.0 H=0.0 81745-9 LOINC NEUT abs count 8.5 th/cmm L=1.6 H=8.4 751-8 LOINC H LYMPH abs count 0.6 th/cmm L=1.5 H=4.0 731-0 LOINC L MONO abs count 1.5 th/cmm L=0.2 H=1.0 742-7 LOINC H EOS abs count 0.0 th/cmm L=0.0 H=0.5 711-2 LOINC BASO abs count 0.0 th/cmm L=0.0 H=0.2 704-7 LOINC IG abs count 0.1 th/cmm L=0.0 H=0.1 98724-1 LOINC NRBC abs count 0.0 mil/cmm L=0.0 H=0.0 78032-6 LOINC RBC 3.86 mil/cmm L=3.90 H=5.40 789-8 [...] PEPTI DE) - Collect Date/Time: 03/17/2024 16:32 [facility] ID: [id number] - [id number] [address] [place] [address], [address] LOINC: 87234-3 Test Value Unit Reference Range Code Code System Flag NT-proBNP 916.0 pg/mL L=0.0 H=450 67683-4 LOINC H TROPONIN-I* - Collect Date/T ellis: 03/17/2024 16:32 [facility] ID: [id number] [address] [place] [address], [address] LOINC: 72906-0 Test Value Unit Reference Range Code Code System Flag TROPONIN-I < 0.012 ng/mL L=0.000 H=0.034 01734-6 LOINC Specimen seq. RANDOM URINALYSIS WITH MICROSCOPIC* - Collect Date/Time: 03/17/2024 16:10 [facility] ID: [id number] - [id number] [address] [place], [place], [address] LOINC: 11851-1 Test Value Unit Reference Range Code Code System Flag COLLECTION MODE: CLEAN CATCH 24384-0 LOINC Color YELLOW yellow 5778-6 LOINC Appearance CLOUDY clear 5767-9 LOINC Glucose urine NEGATIVE negative mg/dl 89959-6 LOINC Bilirubin NEGATIVE negative 5770-3 LOINC Ketones NEGATIVE negative mg/dl 2514-8 LOINC Spec gravity 1.020 1.003 - 1.030 5811-5 LOINC pH urine 5.5 5.0 - 7.0 2756-5 LOINC Protein 100 negative mg/dl 88910-2 LOINC A Urobilinogen 0.2 <or= 1 EU/dl 69240-2 LOINC Nitrite POSITIVE negative 5802-4 LOINC A Blood LARGE negative 5794-3 LOINC A Leukocytes MODERATE negative 96853-4 LOINC A WBCs 25-100 0-5 / hpf 66698-2 LOINC RBCs 10-25 0-5 / hpf 68474-5 LOINC Epith cells none 0-5 / hpf Crystals none none Bacteria large none Mucus none none Casts none none /lpf Other [facility] COVID FLU RSV GENEXPE RT - Collect Date/Time: 03/17/2024 16:10 [facility] ID: [id number] [address] [place] [address], [id number] LOINC: 09074-2 Test Value Unit Reference Range Code Code System Flag COVID NEGATIVE Normal: Negative 48257-1 LOINC INFLUENZA A DNA NEGATIVE Normal: Negative 91413-6 LOINC INFLUENZA B DNA NEGATIVE Normal: Negative 47197-4 LOINC RSV DNA NEGATIVE Normal: Negative 90318-7 LOINC XR CHEST 2V PA AND LATERAL - Completed: 03/17/2024 16:20 LOINC: [facility] RADIOLOGY [place], [place] [address] RADIOLOGY NET MANAGER REPORT Patient Name: NICK MENDIETA MRN: Sex: : Age: [id number] F 1940 83 Account: Accession: Admit: StayType: [id number] 03/17/2024 E Ordered: Order ID: Submitted: Ordering Provider: 03/17/2024 16:03 [id number] NGOZI MOSLEY Completed: Technologist: Resulted: 03/17/2024 16:09 [...] have questions please contact the health care coordinator that requested your imaging first. Social History Type Status Start Date End Date Code Code Syst em Smoking History Never smoker (Never Smoked) 271546863 SNOMED CT Sex Female Vital Signs Vital Sign Value Unit [place] Value [place] Unit Date/Time Recent/Initial? Code Code System Body Mass Index 25.70 kg/m2 03/17/2024 15:07 Initial 16694 -5 LOINC Systolic Blood Pressure 99 mm[Hg] [...] Saturation 98 % 2023 17:42 Most Recent 06778 -5 INC O2 Saturation 98 % 2023 15:07 Initial 36949 -5 LOINC Pulse 102.0 /min 03/17/2024 17:42 [...] 61.69 kg 136.00 lbs 03/17/2024 15:07 Initial 43158 -7 [facility] Medications Medication Start Date End Date Route Frequency Dose Code Code System Medication Instructions Home Meds Atorvastatin Calcium 20MG Oral Tablet 08/20/2019 Unknown ORAL BEDTIME 20 MILLIGRAMS 172953 RxNorm TAKE 20 MILLIGRAMS ORAL BEDTIME Fish Oil 1000MG Oral Capsule, Liquid Filled 08/20/2019 03/18/20 24 ORAL DAILY 3 CAPSULE 403161 RxNorm TAKE 3 CAPSULE ORAL DAILY Gabapentin 800MG Oral Tablet 08/20/2019 03/18/20 24 ORAL TWICE A DAY 1 TABLET 012474 RxNorm TAKE 1 TABLET ORAL TWICE A DAY Lisinopril 20MG Oral Tablet 08/20/2019 03/18/20 24 ORAL DAILY 20 MILLIGRAMS 032344 RxNorm TAKE 20 MILLIGRAMS ORAL DAILY Multiple Vitamin Formula Oral Tablet 08/20/2019 03/18/20 24 ORAL DAILY 1 unit(s) 1486825 RxNorm TAKE 1 EACH ORAL DAILY glipiZIDE 10MG Oral Tablet, Extended Release 08/20/2019 Unknown ORAL DAILY 10 MILLIGRAMS 870145 RxNorm TAKE 10 MILLIGRAMS ORAL DAILY metFORMIN HCl 1000MG Oral Tablet 08/20/2019 Unknown ORAL TWICE A DAY WITH FOOD 1000 MILLIGRAMS 463906 RxNorm TAKE 1000 MILLIGRAMS ORAL TWICE A DAY WITH FOOD Cephalexin 500MG Oral Tablet 03/17/2024 03/19/20 24 ORAL TWICE A DAY 1 TABLET 646221 RxNorm TAKE 1 TABLET ORAL TWICE A DAY x 7 days Acetaminophen 500MG Oral Tablet 03/18/2024 03/18/20 24 ORAL NEEDED EVERY 6 HOURS 2 TABLET 250986 RxNorm TAKE 2 TABLET (OR 3 TABLETS regular strength 325mg) ORAL EVERY 6 HOURS FOR 1-2 DAYS THEN NEEDED FOR Fever/Pain (NEXT DOSES 6AM AND 12 NOON) Ibuprofen 200MG Oral Tablet 03/18/2024 03/18/20 24 ORAL EVERY 6 HOURS 2 TABLET 858162 RxNorm TAKE 2 TABLET ORAL EVERY 6 HOURS FOR 24 HOURS THEN NEEDED. (NEXT DOSES at 4AM AND 10AM) Aspirin 81MG Oral Tablet, Enteric Coated 03/19/2024 Unknown ORAL DAILY 81 MILLIGRAMS 369802 RxNorm TAKE 81 MILLIGRAMS ORAL DAILY Carvedilol 6.25MG Oral Tablet 03/19/2024 Unknown ORAL TWICE A DAY 6.25 MILLIGRAMS 839401 RxNorm TAKE 6.25 MILLIGRAMS ORAL TWICE A DAY Fish Oil [place]-3 1000 MG Oral Capsule, Liquid Filled 03/19/2024 Unknown ORAL DAILY 1000 MG RxNorm TAKE 10 00 MG ORAL DAILY Gabapentin 600MG Oral Tablet 03/19/2024 Unknown ORAL TWICE A DAY 600 MILLIGRAMS 725722 RxNorm TAKE 600 MILLIGRAMS ORAL TWICE A DAY Lisinopril 10MG Oral Tablet 03/19/2024 Unknown ORAL DAILY 10 MILLIGRAMS 514325 RxNorm TAKE 10 MILLIGRAMS ORAL DAILY Multiple [...] Tablet 03/19/2024 Unknown ORAL BEDTIME 0.5 MILLIGRAMS 873644 RxNorm TAKE 0.5 MILLIGRAMS ORAL BEDTIME Ventolin HFA 0.09MG/1Actuat ion Inhalation Suspension 03/19/2024 Unknown INHALA TION NEEDED EVERY 4 HOURS 2 unit(s) 346539 RxNorm 2 EACH INHALATION NEEDED EVERY 4 HOURS Victoza 6MG/1ML Subcutaneous Solution 03/19/2024 Unknown SUBCUT ANEOUS 1.8 MILLILITERS 041225 RxNorm INJECT 1.8 MILLILITERS SUBCUTANEOU S Cefdinir [...] Code Code System URINARY TRACT INFECTION active 790928 05 SNOMED-CT HYPOTENSION active 66297767 SNOMED-C T HYPOKALEMIA active 86902606 SNOMED-C T SEPSIS active 56644934 SNOMED-CT CIRRHOSIS - NON-ALCOHOLIC 01/02/2022 resolved 266 548200 SNOMED-CT HTN 08/20/2019 resolved 26172389 SNOMED-CT HIGH CHOLESTEROL 10/01/2023 resolved 92221787 SN OMED-CT PERSONAL HISTORY OF BLADDER CA 08/20/2019 resolved 385711940 SNOMED-CT NON-INSULIN DEPENDENT DIABETES MELLITUS 08/20/2019 resolved [id number] SNOMED-CT 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 [place], [place] [address] RADIOLOGY NET MANAGER REPORT Patient Name: NICK MENDIETA MRN: Sex: : Age: [id number] F 1940 83 Account: Accession: Admit: StayType: [id number] 03/17/2024 E Ordered: Order ID: Submitted: Ordering Provider: 03/17/2024 16:03 [id number] NGOZI MOSLEY Completed: Technologist: Resulted: 03/17/2024 16:09 [...]
--- OUTSIDE RECORDS SUMMARY | 2024-04-20 15:49 | XMS_ITS ---
Author Organization Unknown Address [address] [place] [phone] Phone Care Team Providers Care Packaging Operator Name Role Phone ADDI Guaman Attending Unavailable Social History Type Status Start Date End Date Code Code Syst em Smoking History Never smoker (Never Smoked) 413946138 SNOMED CT Sex Female Medications Medication Start Date End Date Route Frequency Dose Code Code System Medication Instructions Home Meds Atorvastatin Calcium 20MG Oral Tablet 08/20/2019 Unknown ORAL BEDTIME 20 MILLIGRAMS 707372 RxNorm TAKE 20 MILLIGRAMS ORAL BEDTIME glipiZIDE 10MG Oral Tablet, Extended Release 08/20/2019 Unknown ORAL DAILY 10 MILLIGRAMS 241381 RxNorm TAKE 10 MILLIGRAMS ORAL DAILY metFORMIN HCl 1000MG Oral Tablet 08/20/2019 Unknown ORAL TWICE A DAY WITH FOOD 1000 MILLIGRAMS 431103 RxNorm TAKE 1000 MILLIGRAMS ORAL TWICE A DAY WITH FOOD Cephalexin 500MG Oral Tablet 03/17/2024 03/19/20 24 ORAL TWICE A DAY 1 TABLET 026419 RxNorm TAKE 1 TABLET ORAL TWICE A DAY x 7 days Aspirin 81MG Oral Tablet, Enteric Coated 03/19/2024 Unknown ORAL DAILY 81 MILLIGRAMS 312159 RxNorm TAKE 81 MILLIGRAMS ORAL DAILY Carvedilol 6.25MG Oral Tablet 03/19/2024 Unknown ORAL TWICE A DAY 6.25 MILLIGRAMS 567933 RxNorm TAKE 6.25 MILLIGRAMS ORAL TWICE A DAY Fish Oil [place]-3 1000 MG Oral Capsule, Liquid Filled 03/19/2024 Unknown ORAL DAILY 1000 MG RxNorm TAKE 10 00 MG ORAL DAILY Gabapentin 600MG Oral Tablet 03/19/2024 Unknown ORAL TWICE A DAY 600 MILLIGRAMS 015834 RxNorm TAKE 600 MILLIGRAMS ORAL TWICE A DAY Lisinopril 10MG Oral Tablet 03/19/2024 Unknown ORAL DAILY 10 MILLIGRAMS 098829 RxNorm TAKE 10 MILLIGRAMS ORAL DAILY Multiple [...] Tablet 03/19/2024 Unknown ORAL BEDTIME 0.5 MILLIGRAMS 411606 RxNorm TAKE 0.5 MILLIGRAMS ORAL BEDTIME Ventolin HFA 0.09MG/1Actuat ion Inhalation Suspension 03/19/2024 Unknown INHALA TION NEEDED EVERY 4 HOURS 2 unit(s) 152029 RxNorm 2 EACH INHALATION NEEDED EVERY 4 HOURS Victoza 6MG/1ML Subcutaneous Solution 03/19/2024 Unknown SUBCUT ANEOUS 1.8 MILLILITERS 114621 RxNorm INJECT 1.8 MILLILITERS SUBCUTANEOUS Cefdinir 300MG [...] Code Code System URINARY TRACT INFECTION active 798676 [id number] SNOMED-CT HYPOTENSION active 70125147 SNOMED-C T HYPOKALEMIA active 90995729 SNOMED-C T SEPSIS active 39880252 SNOMED-CT CIRRHOSIS - NON-ALCOHOLIC 01/02/2022 resolved 266 735774 SNOMED-CT HTN 08/20/2019 resolved 91967518 SNOMED-CT HIGH CHOLESTEROL 10/01/2023 resolved 19008255 SN OMED-CT PERSONAL HISTORY OF BLADDER CA 08/20/2019 resolved 292716443 SNOMED-CT NON-INSULIN DEPENDENT DIABETES MELLITUS 08/20/2019 resolved 34182121 SNOMED-CT 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 728775488 SNOMED-CT Allergies and Adverse Reactions Allergy Substance Reaction Severity Start Date Concern Status Co de Code System CODEINE Active 0282 RxNorm Plan of Treatment PFT COMPLETE W [...]
--- OUTSIDE RECORDS SUMMARY | 2024-04-20 15:50 | XMS_ITS | Encounter Summary ---
Author Organization [facility] [place] [address] Care Team Providers Care Traffic Division Commanding Officer Name Role Phone yAsha Johnson MD Primary Care Provider [phone] Encounter Details Date Type Department Care Team (Late st Contact Info) Description 12/26/2023 Telephone Cardiology at [address] [phone] Agnieszka Vinson, RN Social History Tobacco Use Types Packs/Day Years Used Date Smoking Tobacco: Never Smokeless Tobacco: Never Alcohol Use Standard Drinks/Week Comments Yes 0 (1 standard drink = 0.6 oz pur e alcohol) once per year [facility] Inpatient Questions Answer Date Recorded [...] 4A [facility] Care Team Nurse [phone] documented in this encounter Plan of Treatment Upcoming Encounters Date Type Department Care Team (Late st Contact Info) Description 04/28/2024 11:00 AM EST Appointment [place] [address] Molly Cui, [facility] [place] [address] 04/28/2024 2:00 PM EST Office [place] [address] Molly Cui, [facility] [place] [address] documented as of this encounter Visit Diagnoses Not on filedocumented in this encounter Care Teams Traffic Division Commanding Officer Relationship Specialty Start Date End Date Aysha Johnson MD [address] [place] [address] PCP - General Family Medicine 12/12/23 documented as of this encounter
--- OUTSIDE RECORDS SUMMARY | 2024-04-20 15:50 | XMS_ITS | Encounter Summary ---
Author Organization [facility] [place] [address] Care Team Providers Care Dross Skimmer Name Role Phone Aysha Johnson MD Primary Care Provider [phone] Encounter Details Date Type Department Care Team [...] 04/28/2024 11:00 AM EST Appointment [place] [address] Molly Cui APRN [facility] [place] [address] 04/28/2024 2:00 PM EST Office Visit [place] [phone] Molly Cui APRN [facility] [place] [address] documented as of this encounter Visit Diagnoses Not on filedocumented in this encounter Care Teams Dross Skimmer Relationship Specialty Start Date End Date Aysha Johnson MD [address] [place] [address] PCP - General Family Medicine 12/12/23 documented as of this encounter
--- OUTSIDE RECORDS SUMMARY | 2024-04-20 15:50 | XMS_ITS | Encounter Summary ---
Author [facility] [place] [address] Care Team Providers Care Optician Apprentice Name Role Phone Aysha Johnson MD Primary Care Provider [phone] Encounter Details Date Type Department Care Team (Latest Contact Info) Description 12/23/2023 10:30 AM EDT TH Visit (TeleHealth) [place] [address] Molly Cui, BARREL FILLER [facility] [place] [address] JIMENEZ (dyspnea on exertion); Hepatic cirrhosis, unspecified hepatic cirrhosis type, unspecified whether ascites present Social History Tobacco Use Types Packs/Day Years Used Date Smoking Tobacco: Never Smokeless Tobacco: Never Alcohol Use Standard Drinks/Week Comments Yes 0 (1 standard drink = 0.6 oz pur e alcohol) once per year [facility] Inpatient Questions Answer Date Recorded [...] She was previously seeing Dr. Ortega in [place] - was seeing him in [place], but he was in process of moving so [place] [facility]. He thought thtere was narrowing in aorta valve (? Per patient) Taking Metoprolol 50mg once daily and also taking Carvedilol 6.25mg BID. PAST MEDICAL/SURGICAL HISTORY 1. 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 [place] [address] 04/28/2024 2:00 PM EST Office [place] [phone] [facility] [facility] [place] [address] documented as of this encounter Visit Diagnoses Diagnosis JIMENEZ (dyspnea on exertion) Other dyspnea and respiratory abnormality Hepatic cirrhosis, unspecified hepatic cirrhosis type, unspecified whether ascites present documented in this encounter Care Teams Optician Apprentice Relationship Specialty Start Date End Date Aysha Johnson MD [address] [place] [address] PCP - General Family Medicine 12/12/23 documented as of this encounter
--- OUTSIDE RECORDS SUMMARY | 2024-04-20 15:50 | XMS_ITS | Encounter Summary ---
Author Organization [facility] Address [facility] [place] [address] Care Team Providers Care Transformation Specialist Name Role Phone Aysha Johnson MD Primary Care Provider [phone] Reason for Visit * Reason Comments Medication Refill Encounter Details Date Type Department Care Team (Late st Contact Info) Description 01/20/2024 Refill [place] [phone] Molly Cui LINEN MANAGER [facility] [place] [address] Gastroesophageal reflux disease without esophagitis Social History Tobacco Use Types Packs/Day Years Used Date Smoking Tobacco: Never Smokeless Tobacco: Never Alcohol Use Standard Drinks/Week Comments Yes 0 (1 standard drink = 0.6 oz pur e alcohol) once per year [facility] Inpatient Questions Answer Date Recorded Does [...] 04/28/2024 11:00 AM EST Appoint[place] [phone] Molly Cui LINEN MANAGER [facility] [place] [address] 04/28/2024 2:00 PM EST Office Visit [place] [address] Molly Cui APRN [facility] [place] [address] documented as of this encounter Visit Diagnoses Diagnosis Gastroesophageal reflux disease without esophagitis Esophageal reflux documented in this encounter Care Teams Transformation Specialist Relationship Specialty Start Date End Date Aysha Johnson MD [address] [address] PCP - General Family Medicine 12/12/23 documented as of this encounter
--- OUTSIDE RECORDS SUMMARY | 2024-04-20 15:50 | XMS_ITS | Encounter Summary ---
Author Organization [facility] Address [facility] [place] [address] Care Team Providers Care Amalgamator Name Role Phone Aysha Johnson MD Primary Care Provider [phone] Encounter Details Date Type Department Care Team (Latest Contact Info) Description 12/20/2023 9:41 AM EDT - 12/20/2023 9:43 AM EDT Hospital Encounter Non[place] [phone] Rebeka Orosco MD [facility] [address] Chest pain on breathing Discharge Disposition: Home Social History Tobacco Use Types Packs/Day Years Used Date Smoking Tobacco: Never Smokeless Tobacco: Never Alcohol Use Standard Drinks/Week Comments Yes 0 (1 standard drink = 0.6 oz pur e alcohol) once per year [facility] Inpatient Questions Answer Date Recorded Does Anyone [...] type, unspecified whether angina present, unspecified whether new [place] or transplanted heart Place 1 tablet under the tongue every 5 minutes as needed for Chest pain. 25 tablet 12 12/13/2023 ranolazine ER (Ranexa) 500 mg ER 12 hr tabletIndications:Luis nary artery disease, unspecified vessel or lesion type, unspecified whether angina present, unspecified whether new [place] or transplanted heart Take 1 tablet by mouth 2 times daily. 60 tablet 12/13/2023 isosorbide mononitrate CR (Imdur) 30 mg ER 24 hr tablet Take 30 mg by mouth 2 times daily. jftcvbiwlu-rpnnski-swc feine (Fiorinal) 50-325-40 mg tablet Take 1 [...] directed. 05/02/2020 fluticasone propionate (FLONASE) 50 mcg/actuation [place], Suspension 1 spray daily. pramipexole (MIRAPEX) 0.125 [...] 04/28/2024 11:00 AM EST [place] [phone] Molly Cui APRN [facility] [place] [address] 04/28/2024 2:00 PM EST Office [place] [address] Molly Cui APRN [facility] [place] [address] documented as of this encounter Procedures Procedure [...] respiration documented in this encounter Care Teams Amalgamator Relationship Specialty Start Date End Date Aysha Johnson MD [address] [place] [address] PCP - General Family Medicine 12/12/23 documented as of this encounter
--- OUTSIDE RECORDS SUMMARY | 2024-04-20 15:50 | XMS_ITS | Encounter Summary ---
Author Organization [facility] [place] [address] Care Team Providers Care Dredge Captain Name Role Phone Aysha Johnson MD Primary Care Provider [phone] Encounter Details Date Type Department Care Team (Late st Contact Info) Description 03/17/2024 Interpretation Only [facility] in [address] [address] Zoe Lay, FIELD AGRONOMIST [address] [place] [address] [phone] Social History Tobacco Use Types Packs/Day Years [...] 04/28/2024 11:00 AM EST [place] [address] Molly Cui, FIELD AGRONOMIST [facility] [place] [address] 04/28/2024 2:00 PM EST Office [place] [address] Molly Cui APRN [facility] [place] [address] documented as of this encounter Procedures Procedure Name Priority Date/Time Associated Diagnosis Comments XR CHEST PA AND LATERAL STAT 03/17/2024 4:20 PM EST documented in this encounter Results * XR Chest PA & Lateral (Generic) (03/17/2024 4:20 PM EST) PT CLASS E RAD ADMITDTTM [id number] RAD PT RAD INFO [id number]^ALIREZA^C HELSEA^L RAD EXAM DESC XCXR2^XR CHEST 2V PA AND LATERAL^RIS [facility] WORKSTATION ID [id number] [facility] Anatomical Region Laterality Modality Chest N/A Radiographic Marlee ging Impressions 03/17/2024 4:28 PM EST Stable interval exam, no evidence of pneumonia. Thank you for letting us participate in the care of this patient. ??If you are a health care provider and have any questions regarding this report, please contact the number below. ??For patients who have questions please contact the health healthcare representative that requested your imaging first. ? Narrative [...] who have questions please contactthe health healthcare representative that requested your imaging first. Zoe L Alireza FIELD AGRONOMIST IMG DX ORDERABLES documented in this encounter Visit Diagnoses Not on filedocumented in this encounter Care Teams Dredge Captain Relationship Specialty Start Date End Date Aysha Johnson MD [address] [place] [address] PCP - General Family Medicine 12/12/23 documented as of this encounter
--- OUTSIDE RECORDS SUMMARY | 2024-04-20 15:50 | XMS_ITS | Encounter Summary ---
Author Organization [facility] Address [facility] [place] [address] Care Team Providers Care Mat Maker Name Role Phone Aysha Johnson MD Primary Care Provider [phone] Reason for Visit * Reason Comments Medication Refill Encounter Details Date Type Department Care Team (Late st Contact Info) Description 04/14/2024 [place] [phone] Molly Cui JUNIOR PROJECT COORDINATOR [facility] [place] [address] Gastroesophageal reflux disease without esophagitis Social History Tobacco Use Types Packs/Day Years Used Date Smoking Tobacco: Never Smokeless Tobacco: Never Alcohol Use Standard Drinks/Week Comments Yes 0 (1 standard drink = 0.6 oz pur e alcohol) once per year [facility] Inpatient Questions Answer Date Recorded Does [...] 04/28/2024 11:00 AM [place] [phone] Molly Cui JUNIOR PROJECT COORDINATOR [facility] [place] [address] 04/28/2024 2:00 PM EST Office [place] [address] Molly Cui APRN [facility] [place] [address] documented as of this encounter Visit Diagnoses Diagnosis Gastroesophageal reflux disease without esophagitis Esophageal reflux documented in this encounter Care Teams Mat Maker Relationship Specialty Start Date End Date Asyha Johnson MD [address] [address] PCP - General Family Medicine 12/12/23 documented as of this encounter
--- OUTSIDE RECORDS SUMMARY | 2024-04-20 15:50 | XMS_ITS | Encounter Summary ---
Author Organization [facility] [place] [address] Care Team Providers Care Quill Skinner Name Role Phone Aysha Johnson MD Primary Care Provider [phone] Encounter Details Date Type Department Care Team (Late st Contact Info) Description 01/06/2024 Telephone Cardiology at [address] [phone] Katelynn Fan, RN Social History Tobacco Use Types Packs/Day Years Used Date Smoking Tobacco: Never Smokeless Tobacco: Never Alcohol Use Standard Drinks/Week Comments Yes 0 (1 standard drink = 0.6 oz pur e alcohol) once per year [facility] Inpatient Questions Answer Date Recorded [...] further questions or concerns at this time. Ktaelynn Fan RN, BSN Ambulatory Cardiology Clinic, [facility] [phone] * Telephone Encounter - Katelynn Fan RN [...] Katelynn Fan RN, BSN Ambulatory Cardiology Clinic, [facility] [phone] documented in this encounter Plan of Treatment Upcoming Encounters Date Type Department Care Team (Late st Contact Info) Description 04/28/2024 11:00 AM EST Appoint[place] [address] Molly Cui, [facility] [address] 04/28/2024 2:00 PM EST Office [place] [address] Molly Cui, [facility] [address] documented as of this encounter Visit Diagnoses Not on filedocumented in this encounter Care Teams Quill Skinner Relationship Specialty Start Date End Date Aysha Johnson MD [address] [place] [address] PCP - General Family Medicine 12/12/23 documented as of this encounter
--- OUTSIDE RECORDS SUMMARY | 2024-04-20 15:50 | XMS_ITS | Data Portability ---
Author Organization [place] - [facility] [place] [facility] [address] Care Team Providers Care Concrete Products Dispatcher Name Role Phone CRYSTAL ORTEGA Decontamination Technician LANI WALLIS Package Handler Assessment Encounter Date Assessment Date Assessment LastModified [...] and mobility after addressing acute respiratory issues. [email or web address] Not available 03/17/2024 15:27:03 03/27/2024 03/27/2024 Chronic Diarrhea - Assessment: Patient [...] down notes before visits to aid recall. [email or web address] Not available 03/27/2024 14:29:14 04/16/2024 04/16/2024 Chronic Diarrhea with Fecal Incontinence Assessment: Patient reports improvement in loose stools after discontinuing metformin for 2 weeks but now experiences fecal incontinence with soft, mushy stools 2-3 times daily for approximately 1-1.5 months. The change in stool consistency and new onset incontinence suggest a possible multifactorial etiology, including medication side effects and potential pelvic floor dysfunction. Plan: a. Continue holding metformin. b. Recommend increased fiber intake through diet or supplements (e.g., Metamucil). c. Monitor for changes in stool consistency and frequency of incontinence. d. Consider referral for pelvic floor evaluation if symptoms persist. Type 2 Diabetes Mellitus Assessment: Patient's most recent A1c was 7.3% in late February. Metformin was discontinued due to chronic diarrhea. Currently managed with Victoza 1.2 mg daily, as 1.8 mg caused gastrointestinal side effects. The impact of metformin discontinuation on glycemic control is yet to be determined. Plan: a. Continue Victoza 1.2 mg daily. b. Monitor blood glucose levels. c. Schedule follow-up A1c test to assess glycemic control without metformin. d. Reassess need for metformin based on future A1c and blood glucose results. Asthma Exacerbation Assessment: Patient reports nocturnal dyspnea and cough, requiring multiple uses of albuterol inhaler. Lung examination reveals baseline crackles at the bases without wheezing. Oxygen saturation is normal. The presentation is consistent with an asthma exacerbation, though COPD has not been ruled out. Plan: a. Schedule pulmonary function test at [facility] to differentiate between asthma and COPD. b. Continue albuterol inhaler as needed. c. Monitor symptoms and return if worsening occurs. d. Recommend use of home humidifier. Mild Cognitive Impairment Assessment: SLUMS cognitive examination score of 25/30 indicates mild cognitive impairment, considering patient's 10th-grade education. Patient demonstrates some difficulty with backward counting but overall performance is not alarming. Plan: a. Continue monitoring cognitive function at future visits. b. Provide education on normal age-related memory changes. Congestive Heart Failure (CHF) Assessment: Patient has a history of CHF. Current examination reveals baseline crackles at lung bases. No acute exacerbation noted. Plan: a. Continue current CHF management. b. Monitor for signs of fluid overload or worsening symptoms. Possible Urinary Tract Infection (UTI) Plan: a. Obtain urine sample for urinalysis and culture. b. Await results before initiating treatment. Xerostomia and Cheilitis Assessment: Patient reports excessive salivation, sore mouth, and peeling lips, likely due to dry environmental conditions. Plan: a. Continue use of Carmex for lip care. b. Encourage use of home humidifier. c. Monitor symptoms and reassess at next visit. The total time devoted to today's encounter, including both the csuu-kv-vvog time with the patient and/or family/caregiver and lne-gstv-mu-face time I personally spent is 50 minutes. [email or web address] Not available 04/16/2024 16:34:58 Plan of Treatment Reminders Order Date Submit Date Provider Last Modified By Organization Details Last Modified Time Details Appointments Nurse Visit 20 2024 02:45P M [place] [facility] Staff Not available Not available Not available Lab BMP, serum or plasma 2023 024 [email or web address] [facility] (Registration ), [address] [place] [address] [place], [address], 03/30/2024 07:17:36 BMP, serum or plasma 2023 024 [email or web address] [facility] (Registration ), [address] [place] [address] [place], [address], 03/31/2024 12:02:32 urinalysi s, dipstick [address], [address], [place], [address], 04/16/2024 16:35:11 culture + sensitivi ty, urine - clean catch, collected at [facility] [address] Laboratory (Registration ), [address] [place] [address] [place], [address], 04/16/2024 17:16:27 C diff screen, stool, reflex PCR 2024 025 [facility] (Registration ), [address] [place] [address] [place], [address], 04/20/2024 14:40:39 gastroint estinal pathogens panel, PCR, stool 2024 025 [facility] (Registration ), [address] [place] [address] Dr [facility] [place], [address], 04/20/2024 14:45:32 Referral None recorded. Procedures bronchodi lation responsiv eness, pre- and post-bron chodilato r administr ation (PROC) - pre and post spirometr y, eval for COPD vs asthma vs overlap syndrome. 2024 025 [facility], [address] [place] [address], [address], 04/17/2024 11:25:19 Surgeries None recorded. Imaging None recorded. Medication Orders carvedilo l 6.25 mg tablet 2023 024 [facility], [address] [place] [address], [facility] [address], [place], [place], [id number], 03/27/2024 15:31:06 metformin 1,000 mg tablet 2023 [facility], [address], [place] [address], [place], [place], [id number], 03/27/2024 15:31:06 albuterol sulfate HFA 90 mcg/actua tion aerosol inhaler 2023 024 [facility] [address], [address], [place], [address], 03/27/2024 15:31:08 Patient TargetsNo targets recorded. Patient Instructions Encounter Date Encounter Id Patient Instructions Last Modified By Organization Details Last Modified Time 03/17/2024 [id number] Date: SatMar 17 2024 Dear [Patient's Name], Thank you for visiting today and discussing your health concerns. I appreciate your commitment to improving your health. Here's a summary of the palomo points from our conversation: - Immediate visit to the ER: Go directly to [facility] for a thorough evaluation, as your symptoms [...] regular medications as prescribed. I have informed [facility] of your arrival to expedite your care. We will address any additional concerns after your immediate needs are taken care of at the ER. Please feel free to reach out after your ER visit for any further questions or concerns. Wishing you a beltran recovery. Best regards, Aysha Barillas MD Family Medicine [email or web address] Not available 03/17/2024 15:22:54 03/27/2024 [id number] Dear Milka, Thank you for visiting us [...] - I may refer you to a silk blocker if we can't figure out the cause [...] in two weeks to assess your progress. Aysha Arroyo MD Family Medicine Not available 03/27/2024 14:31:20 04/16/2024 [id number] Date: April 16, 2024 Dear Milka, Thank you for visiting us today. I appreciate your dedication to managing your health conditions and am pleased to assist you in this journey. Here are the palomo instructions and recommendations from today's consultation: - Medication Adjustments: - Continue to avoid Metformin due to its impact on your bowel movements. - Continue using Victoza at a dose of 1.2 mg for diabetes management. - Dietary Recommendations: - Increase dietary fiber intake through more vegetables, salads, or a fiber supplement like Metamucil, taken with a full glass of water. - Cognitive Health: - Your SLUMS cognitive examination score was 25 out of 30, indicating mild cognitive impairment. Continue monitoring. - Respiratory Management: - Use your albuterol inhaler as needed for breathing difficulties. - Consider undergoing a pulmonary function test at [facility] to further evaluate your asthma. - General Health: - Use Carmex for your lips and run a humidifier at home to manage dryness. - A urine sample will be checked to investigate your complaint of pain during urination. - Follow-Up: - Monitor your symptoms and report any significant changes, especially if respiratory symptoms worsen. Thank you once again for your visit today. Please follow the outlined plan and keep us updated on your progress. Dr. Aysha Arroyo MD Family Medicine [email or web address] Not available 04/16/2024 14:33:41 Reason for Referral None Reported. Results Created Date Observation Date Name Description Value Unit Range Abnormal Flag Note LastModifiedBy Organization Detail LastModifiedTime 03/04/20 24 03/04/2024 hemog lobin A1C, april campbell k hemoglobin A1C 7.3 % <5.7 Not Available [facility] [address] [facility], [place], [address], 03/04/2024 14:21:18 03/17/20 24 03/17/2024 LACTI C ACID lactic acid 1.5 mmol/ L 0.7 - 2.1 Not Available [facility] (Lab) [address] [place] [address], [address], 03/17/2024 17:27:33 03/17/20 24 03/17/2024 CBC W/ DIFFE RENTI AL* WBC 10.72 TH/cm m 5.00 - 10.00 high Not Available [facility] (Lab) [address] [place] [address], [id number], 03/17/2024 21:12:49 03/17/20 24 03/17/2024 CBC W/ DIFFE RENTI AL* neut % 79.2 % 40.0 - 80.0 Not Available [facility] (Lab) [address] [place] [address], [id number], 03/17/2024 21:12:49 03/17/20 24 03/17/2024 CBC W/ DIFFE RENTI AL* lymph % 5.7 % 10.0 - 50.0 low Not Available [facility] (Lab) [address] [place] [address], 02991, 03/17/2024 21:12:49 03/17/20 24 03/17/2024 CBC W/ DIFFE RENTI AL* mono % 14.2 % 2.0 - 12.0 high Not Available [facility] (Lab) [address] [place] [address], 028[address], 03/17/2024 21:12:49 03/17/20 24 03/17/2024 CBC W/ DIFFE RENTI AL* eos % 0.1 % 0.0 - 8.0 Not Available [facility] (Lab) [address] [place] [address], 338[address], 03/17/2024 21:12:49 03/17/20 24 03/17/2024 CBC W/ DIFFE RENTI AL* baso % 0.1 % 0.0 - 3.0 Not Available [facility] (Lab) [address] [place] [address], 979[address], 03/17/2024 21:12:49 03/17/20 24 03/17/2024 CBC W/ DIFFE RENTI AL* Ig % 0.7 % 0.0 - 1.1 Not Available [facility] (Lab) [address] [place] [address], [id number], 03/17/2024 21:12:49 03/17/20 24 03/17/2024 CBC W/ DIFFE RENTI AL* NRBC % 0.0 % 0.0 - 0.0 Not Available [facility] (Lab) [address] [place] [address], 02466, 03/17/2024 21:12:49 03/17/20 24 03/17/2024 CBC W/ DIFFE RENTI AL* neut abs count 8.5 TH/cm m 1.6 - 8.4 high Not Available [facility] (Lab) [address] [place] [address], 050[address], 03/17/2024 21:12:49 03/17/20 24 03/17/2024 CBC W/ DIFFE RENTI AL* lymph abs count 0.6 TH/cm m 1.5 - 4.0 low Not Available [facility] (Lab) [address] [place] [address], [id number], 03/17/2024 21:12:49 12/10/03/17/2024 CBC W/ DIFFE RENTI AL* mono abs count 1.5 TH/cm m 0.2 - 1.0 high Not Available [facility] (Lab) [address] [place] [address], [id number], 03/17/2024 21:12:49 03/17/20 24 03/17/2024 CBC W/ DIFFE RENTI AL* eos abs count 0.0 TH/cm m 0.0 - 0.5 Not Available [facility] (Lab) [address] [place] [address], 718[address], 03/17/2024 21:12:49 03/17/20 24 03/17/2024 CBC W/ DIFFE RENTI AL* baso abs count 0.0 TH/cm m 0.0 - 0.2 Not Available [facility] (Lab) [address] [place] [address], [id number], 03/17/2024 21:12:49 03/17/20 24 03/17/2024 CBC W/ DIFFE RENTI AL* Ig abs count 0.1 TH/cm m 0.0 - 0.1 Not Available [facility] (Lab) [address] [place] [address], [id number], 03/17/2024 21:12:49 03/17/20 24 03/17/2024 CBC W/ DIFFE RENTI AL* NRBC abs count 0.0 mil/c mm 0.0 - 0.0 Not Available [facility] (Lab) [address] [place] [address], [id number], 03/17/2024 21:12:49 03/17/20 24 03/17/2024 CBC W/ DIFFE RENTI AL* RBC 3.86 mil/c mm 3.90 - 5.40 low Not Available [facility] (Lab) [address] [place] [address], 49955, 03/17/2024 21:12:49 03/17/20 24 03/17/2024 CBC W/ DIFFE RENTI AL* hemoglobin 11.3 gm/dL 12.0 - 16.0 low Not Available [facility] (Lab) [address] [place] [address], 915[address], 03/17/2024 21:12:49 03/17/20 24 03/17/2024 CBC W/ DIFFE RENTI AL* hematocrit 35 % 37 - 47 low Not Available [facility] (Lab) [address] [place] [address], 18494, 03/17/2024 21:12:49 03/17/20 24 03/17/2024 CBC W/ DIFFE RENTI AL* MCV 92 fL 82 - 92 Not Available [facility] (Lab) [address] [place] [address], 98699, 03/17/2024 21:12:49 03/17/20 24 03/17/2024 CBC W/ DIFFE RENTI AL* MCH 29.3 pg 27.0 - 31.0 Not Available [facility] (Lab) [address] [place] [address], [id number], 03/17/2024 21:12:49 03/17/20 24 03/17/2024 CBC W/ DIFFE RENTI AL* MCHC 31.9 % 32.0 - 36.0 low Not Available [facility] (Lab) [address] [place] [address], 05761, 03/17/2024 21:12:49 03/17/20 24 03/17/2024 CBC W/ DIFFE RENTI AL* RDW-SD 47.0 fL 39.0 - 49.0 Not Available [facility] (Lab) [address] [place] [address], 7[address], 03/17/2024 21:12:49 03/17/20 24 03/17/2024 CBC W/ DIFFE RENTI AL* platelet count 86 TH/cm m 150 - 450 low Not Available [facility] (Lab) [address] [place] [address], 08401, 03/17/2024 21:12:49 03/17/20 24 03/17/2024 CBC W/ DIFFE RENTI AL* bands % 18 ____ -DARYL L -PREL IMINA RY-RE PORT: 03/17 1704 Not Available [facility] (Lab) [address] [place] [address], 98743, 03/17/2024 21:12:49 03/17/20 24 03/17/2024 BNP (PRO- B NATRI URETI C PEPTI DE) nt-probnp 916.0 pg/mL 0.0 - 450 high Optim al NT-pr oBNP Cut-p oints for Acute CHF Diagn osis On Rule in Rule out <50 years 450 pg/mL All ages 300 pg 50-75 years 900 pg/mL >75 years 1800 pg/mL *The resul ts of this assay can be falsl ey lower ed due to the consu mptio n of Bioti n. Not Available [facility] (Lab) [address] [place] [address], 638[address], 03/17/2024 17:34:35 03/17/20 24 03/17/2024 TROPO LORENA-I * troponin-I <0.012 NG/mL 0.000 - 0.034 Not Available [facility] (Lab) [address] [place] [address], 38430, 03/17/2024 17:34:33 03/17/20 24 03/17/2024 TROPO LORENA-I * specimen seq. RANDOM Not Available [facility] (Lab) [address] [place] [address], 28212, 03/17/2024 17:34:33 03/17/20 24 03/17/2024 COMPR EHENS TYLER METAB OLIC PANEL (CMP) glucose 195 mg/dL 70 - 116 high Not Available [facility] (Lab) [address] [place] [address], 32065, 03/17/2024 17:33:33 03/17/20 24 03/17/2024 COMPR EHENS TYLER METAB OLIC PANEL (CMP) BUN 23 mg/dL 7 - 17 high Not Available [facility] (Lab) [address] [place] [address], 14878, 03/17/2024 17:33:33 03/17/20 24 03/17/2024 COMPR EHENS TYLER METAB OLIC PANEL (CMP) creatinine 0.73 mg/dL 0.52 - 1.04 Not Available [facility] (Lab) [address] [place] [address], 71873, 03/17/2024 17:33:33 03/17/20 24 03/17/2024 COMPR EHENS TYLER METAB OLIC PANEL (CMP) sodium serum 136 mmol/ L 136 - 145 Not Available [facility] (Lab) [address] [place] [address], 32389, 03/17/2024 17:33:33 03/17/20 24 03/17/2024 COMPR EHENS TYLER METAB OLIC PANEL (CMP) potassium serum 3.4 mmol/ L 3.4 - 5.2 Not Available [facility] (Lab) [address] [place] [address], 36720, 03/17/2024 17:33:33 03/17/20 24 03/17/2024 COMPR EHENS TYLER METAB OLIC PANEL (CMP) chloride serum 104 mmol/ L 98 - 107 Not Available [facility] (Lab) [address] [place] [address], 48519, 03/17/2024 17:33:33 03/17/20 24 03/17/2024 COMPR EHENS TYLER METAB OLIC PANEL (CMP) carbon dioxide (co2) 24 mmol/ L 22 - 30 Not Available [facility] (Lab) [address] [place] [address], 91728, 03/17/2024 17:33:33 03/17/20 24 03/17/2024 COMPR EHENS TYLER METAB OLIC PANEL (CMP) anion gap 8.5 mmol/ L Not Available [facility] (Lab) [address] [place], [address], 03/17/2024 17:33:33 03/17/20 24 03/17/2024 COMPR EHENS TYLER METAB OLIC PANEL (CMP) calcium serum 9.1 mg/dL 8.4 - 10.2 Not Available [facility] (Lab) [address] [place] [address], 83851, 03/17/2024 17:33:33 03/17/20 24 03/17/2024 COMPR EHENS TYLER METAB OLIC PANEL (CMP) bilirubin total 1.0 mg/dL 0.2 - 1.3 Not Available [facility] (Lab) [address] [place] [address], 30711, 03/17/2024 17:33:33 03/17/20 24 03/17/2024 COMPR EHENS TYLER METAB OLIC PANEL (CMP) alk. phos. 178 U/L 38 - 126 high Not Available [facility] (Lab) [address] [place] [address], 91511, 03/17/2024 17:33:33 03/17/20 24 03/17/2024 COMPR EHENS TYLER METAB OLIC PANEL (CMP) SGOT (AST) 33 U/L 14 - 36 Not Available [facility] (Lab) [address] [place] [address], 67286, 03/17/2024 17:33:33 03/17/20 24 03/17/2024 COMPR EHENS TYLER METAB OLIC PANEL (CMP) SGPT (ALT) 33 U/L 4 - 35 Not Available [facility] (Lab) [address] [place] [address], [id number], 03/17/2024 17:33:33 03/17/20 24 03/17/2024 COMPR EHENS TYLER METAB OLIC PANEL (CMP) total protein 6.8 gm/dL 6.0 - 8.0 Not Available [facility] (Lab) [address] [place], [address], 03/17/2024 17:33:33 03/17/20 24 03/17/2024 COMPR EHENS TYLER METAB OLIC PANEL (CMP) albumin 3.8 gm/dL 3.4 - 5.0 Not Available [facility] (Lab) [address] [place], [address], 03/17/2024 17:33:33 03/17/20 24 03/17/2024 COMPR EHENS TYLER METAB OLIC PANEL (CMP) age 83 years Not Available [facility] (Lab) [address] [place] [address], 77538, 03/17/2024 17:33:33 03/17/20 24 03/17/2024 COMPR EHENS TYLER METAB OLIC PANEL (CMP) eGFR (non-afr.hayde r.) 76 mL/mi n Not Available [facility] (Lab) [address] [place] [address], 03842, 03/17/2024 17:33:33 03/17/20 24 03/17/2024 COMPR EHENS TYLER METAB OLIC PANEL (CMP) eGFR (afr-angeline n) 92 mL/mi n eGFR <60 ml/mi n for >=3 month s is indic ative of chron ic kidne y The eGFR calcu lated using the MDRD Study equat ion is valid ated non hospi taliz ed patie nts 18 to 70 years of age and is not rep patie nts less than 18 years of age. Not Available [facility] (Lab) [address] [place] [address], 05513, 03/17/2024 17:33:33 03/17/20 24 03/17/2024 CBC W/ DIFFE JUDITH AL* WBC 10.72 TH/cm m 5.00 - 10.00 high Not Available [facility] (Lab) [address] [place] [address], 78462, 03/17/2024 17:05:32 03/17/20 24 03/17/2024 CBC W/ DIFFE RENTI AL* neut % 79.2 % 40.0 - 80.0 Not Available [facility] (Lab) [address] [place] [address], [id number], 03/17/2024 17:05:32 03/17/20 24 03/17/2024 CBC W/ DIFFE RENTI AL* lymph % 5.7 % 10.0 - 50.0 low Not Available [facility] (Lab) [address] [place] [address], 70591, 03/17/2024 17:05:32 03/17/20 24 03/17/2024 CBC W/ DIFFE RENTI AL* mono % 14.2 % 2.0 - 12.0 high Not Available [facility] (Lab) [address] [place] [address], 85233, 03/17/2024 17:05:32 03/17/20 24 03/17/2024 CBC W/ DIFFE RENTI AL* eos % 0.1 % 0.0 - 8.0 Not Available [facility] (Lab) [address] [place] [address], 47458, 03/17/2024 17:05:32 03/17/20 24 03/17/2024 CBC W/ DIFFE RENTI AL* baso % 0.1 % 0.0 - 3.0 Not Available [facility] (Lab) [address] [place] [address], 76021, 03/17/2024 17:05:32 03/17/20 24 03/17/2024 CBC W/ DIFFE RENTI AL* Ig % 0.7 % 0.0 - 1.1 Not Available [facility] (Lab) [address] [place] [address], 94410, 03/17/2024 17:05:32 03/17/20 24 03/17/2024 CBC W/ DIFFE RENTI AL* NRBC % 0.0 % 0.0 - 0.0 Not Available [facility] (Lab) [address] [place] [address], 30413, 03/17/2024 17:05:32 03/17/20 24 03/17/2024 CBC W/ DIFFE RENTI AL* neut abs count 8.5 TH/cm m 1.6 - 8.4 high Not Available [facility] (Lab) [address] [place] [address], 55616, 03/17/2024 17:05:32 03/17/20 24 03/17/2024 CBC W/ DIFFE RENTI AL* lymph abs count 0.6 TH/cm m 1.5 - 4.0 low Not Available [facility] (Lab) [address] [place] [address], 88105, 03/17/2024 17:05:32 03/17/20 24 03/17/2024 CBC W/ DIFFE RENTI AL* mono abs count 1.5 TH/cm m 0.2 - 1.0 high Not Available [facility] (Lab) [address] [place] [address], 79778, 03/17/2024 17:05:32 03/17/20 24 03/17/2024 CBC W/ DIFFE RENTI AL* eos abs count 0.0 TH/cm m 0.0 - 0.5 Not Available [facility] (Lab) [address] [place] [address], 72122, 03/17/2024 17:05:32 03/17/20 24 03/17/2024 CBC W/ DIFFE RENTI AL* baso abs count 0.0 TH/cm m 0.0 - 0.2 Not Available [facility] (Lab) [address] [place] [address], 75506, 03/17/2024 17:05:32 03/17/20 24 03/17/2024 CBC W/ DIFFE RENTI AL* Ig abs count 0.1 TH/cm m 0.0 - 0.1 Not Available [facility] (Lab) [address] [place] [address], 26088, 03/17/2024 17:05:32 03/17/20 24 03/17/2024 CBC W/ DIFFE RENTI AL* NRBC abs count 0.0 mil/c mm 0.0 - 0.0 Not Available [facility] (Lab) [address] [place], [address], 03/17/2024 17:05:32 03/17/20 24 03/17/2024 CBC W/ DIFFE RENTI AL* RBC 3.86 mil/c mm 3.90 - 5.40 low Not Available [facility] (Lab) [address] [place] [address], 33051, 03/17/2024 17:05:32 03/17/20 24 03/17/2024 CBC W/ DIFFE RENTI AL* hemoglobin 11.3 gm/dL 12.0 - 16.0 low Not Available [facility] (Lab) [address] [place] [address], 54247, 03/17/2024 17:05:32 03/17/20 24 03/17/2024 CBC W/ DIFFE RENTI AL* hematocrit 35 % 37 - 47 low Not Available [facility] (Lab) [address] [place] [address], 07360, 03/17/2024 17:05:32 03/17/20 24 03/17/2024 CBC W/ DIFFE RENTI AL* MCV 92 fL 82 - 92 Not Available [facility] (Lab) [address] [place] [address], 36971, 03/17/2024 17:05:32 03/17/20 24 03/17/2024 CBC W/ DIFFE RENTI AL* MCH 29.3 pg 27.0 - 31.0 Not Available [facility] (Lab) [address] [place] [address], 99487, 03/17/2024 17:05:32 03/17/20 24 03/17/2024 CBC W/ DIFFE RENTI AL* MCHC 31.9 % 32.0 - 36.0 low Not Available [facility] (Lab) [address] [place] [address], 10108, 03/17/2024 17:05:32 03/17/20 24 03/17/2024 CBC W/ DIFFE RENTI AL* RDW-SD 47.0 fL 39.0 - 49.0 Not Available [facility] (Lab) [address] [place] [address], 00251, 03/17/2024 17:05:32 03/17/20 24 03/17/2024 CBC W/ DIFFE RENTI AL* platelet count 86 TH/cm m 150 - 450 low -PREL IMINA RY-RE PORT: 03/17 1704 Not Available [facility] (Lab) [address] [place], [address], 03/17/2024 17:05:32 03/17/20 24 03/17/2024 COPLE Y COVID FLU RSV GENEX PERT [facility] covid flu RSV genexpert COVID RSV AND FLU A/B Not Available [facility] (Lab) [address] [place] [address], 08894, 03/17/2024 16:56:30 03/17/20 24 03/17/2024 COPLE Y COVID FLU RSV GENEX PERT covid NEGATI VE normal : negati ve Not Available [facility] (Lab) [address] [place] [address], 31808, 03/17/2024 16:56:30 03/17/20 24 03/17/2024 COPLE Y COVID FLU RSV GENEX PERT influenza A DNA NEGATI VE normal : negati ve Not Available [facility] (Lab) [address] [place] [address], 36545, 03/17/2024 16:56:30 03/17/20 24 03/17/2024 COPLE Y COVID FLU RSV GENEX PERT influenza B DNA NEGATI VE normal : negati ve Not Available [facility] (Lab) [address] [place], [address], 03/17/2024 16:56:30 03/17/20 24 03/17/2024 COPLE Y COVID FLU RSV GENEX PERT RSV DNA NEGATI VE normal : negati ve SOURC E - NASOP HARYN GEAL SWAB A negat tyler SARS- CoV-2 resul t does not rule out COVID -19 in this patie nt and shoul d not be used as the sole basis for treat ment and patie nt manag ement . The resul ts shoul d be corre lated with the patie nt's histo ry and clini tiana prese ntati on. This test has not been FDA appro [place], but has been autho rized by the Food and Drug Admin istra tion under the EUA (Joi gency Use Autho rizat ion) for use by autho rized labor atori es for the detec tion of nucle ic acid from 2019- nCoV, Influ marline A and B, RSV and not for any other virus es or patho gens. Perfo rmed at [facility] using the Cephe id [id number] pert SARS- CoV-2 /Flu/ RSV assay Not Available [facility] (Lab) [address] [place] [address], [id number], 03/17/2024 16:56:30 03/17/20 24 03/17/2024 URINA LYSIS WITH MICRO SCOPI C* collection mode: CLEAN CATCH Not Available [facility] (Lab) [address] [place], [address], 03/17/2024 16:39:35 03/17/20 24 03/17/2024 URINA LYSIS WITH MICRO SCOPI C* color YELLOW yellow Not Available [facility] (Lab) [address] [place], [address], 03/17/2024 16:39:35 03/17/20 24 03/17/2024 URINA LYSIS WITH MICRO SCOPI C* appearance CLOUDY clear Not Available [facility] (Lab) [address] [place] [address], 93357, 03/17/2024 16:39:35 03/17/20 24 03/17/2024 URINA LYSIS WITH MICRO SCOPI C* glucose urine NEGATI VE negati ve mg/dL Not Available [facility] (Lab) [address] [place], [address], 03/17/2024 16:39:35 03/17/20 24 03/17/2024 URINA LYSIS WITH MICRO SCOPI C* bilirubin NEGATI VE negati ve Not Available [facility] (Lab) [address] [place] [address], 91668, 03/17/2024 16:39:35 03/17/20 24 03/17/2024 URINA LYSIS WITH MICRO SCOPI C* ketones NEGATI VE negati ve mg/dL Not Available [facility] (Lab) [address] [place] [address], 60081, 03/17/2024 16:39:35 03/17/20 24 03/17/2024 URINA LYSIS WITH MICRO SCOPI C* spec gravity 1.020 1.003 - 1.030 Not Available [facility] (Lab) [address] [place], [address], 03/17/2024 16:39:35 03/17/20 24 03/17/2024 URINA LYSIS WITH MICRO SCOPI C* pH urine 5.5 5.0 - 7.0 Not Available [facility] (Lab) [address] [place] [address], 24822, 03/17/2024 16:39:35 03/17/20 24 03/17/2024 URINA LYSIS WITH MICRO SCOPI C* protein 100 negati ve mg/dL abnormal Not Available [facility] (Lab) [address] [place], [address], 03/17/2024 16:39:35 03/17/20 24 03/17/2024 URINA LYSIS WITH MICRO SCOPI C* urobilinogen 0.2 <or= 1 eu/dL Not Available [facility] (Lab) [address] [place] [address], 36981, 03/17/2024 16:39:35 03/17/20 24 03/17/2024 URINA LYSIS WITH MICRO SCOPI C* nitrite POSITI VE negati ve abnormal Not Available [facility] (Lab) [address] [place] [address], 02610, 03/17/2024 16:39:35 03/17/20 24 03/17/2024 URINA LYSIS WITH MICRO SCOPI C* blood LARGE negati ve abnormal Not Available [facility] (Lab) [address] [place] [address], 95429, 03/17/2024 16:39:35 03/17/20 24 03/17/2024 URINA LYSIS WITH MICRO SCOPI C* leukocytes MODERA TE negati ve abnormal Not Available [facility] (Lab) [address] [place] [address], [id number], 03/17/2024 16:39:35 03/17/20 24 03/17/2024 URINA LYSIS WITH MICRO SCOPI C* WBCs 25-100 0-5 / hpf Not Available [facility] (Lab) [address] [place], [address], 03/17/2024 16:39:35 03/17/20 24 03/17/2024 URINA LYSIS WITH MICRO SCOPI C* RBCs 10-25 0-5 / hpf Not Available [facility] (Lab) [address] [place] [address], [id number], 03/17/2024 16:39:35 03/17/20 24 03/17/2024 URINA LYSIS WITH MICRO SCOPI C* epith cells none 0-5 / hpf Not Available [facility] (Lab) [address] [place], [address], 03/17/2024 16:39:35 03/17/20 24 03/17/2024 URINA LYSIS WITH MICRO SCOPI C* crystals none none Not Available [facility] (Lab) [address] [place] [address], 11292, 03/17/2024 16:39:35 03/17/20 24 03/17/2024 URINA LYSIS WITH MICRO SCOPI C* bacteria large none Not Available [facility] (Lab) [address] [place] [address], 52436, 03/17/2024 16:39:35 03/17/20 24 03/17/2024 URINA LYSIS WITH MICRO SCOPI C* mucus none none Not Available [facility] (Lab) [address] [place] [address], 41423, 03/17/2024 16:39:35 03/17/20 24 03/17/2024 URINA LYSIS WITH MICRO SCOPI C* casts none none /lpf Not Available [facility] (Lab) [address] [place] [address], 33618, 03/17/2024 16:39:35 03/18/20 24 03/18/2024 NOVA GLUCO SE FINGE R HEEL [place]IL [place] glucose cap 135 mg/dL 70 - 116 high Not Available [facility] (Lab) [address] [place] [address], 47829, 03/18/2024 21:09:17 03/18/20 24 03/18/2024 NOVA GLUCO SE FINGE R HEEL [place] glucose cap 135 mg/dL 70 - 116 high Not Available [facility] (Lab) [address] [place] [address], 07067, 03/18/2024 21:09:15 03/18/20 24 03/18/2024 CBC W/ DIFFE RENTI AL* CBC w/ differential * CAMI ENDED REPOR T Not Available [facility] (Lab) [address] [place] [address], 06617, 03/23/2024 08:52:05 03/18/20 24 03/18/2024 CBC W/ DIFFE RENTI AL* WBC 13.71 TH/cm m 5.00 - 10.00 high Not Available [facility] (Lab) [address] [place] [address], 33976, 03/23/2024 08:52:05 03/18/20 24 03/18/2024 CBC W/ DIFFE RENTI AL* neut % 82.2 % 40.0 - 80.0 high Not Available [facility] (Lab) [address] [place] [address], 57414, 03/23/2024 08:52:05 03/18/20 24 03/18/2024 CBC W/ DIFFE RENTI AL* lymph % 4.0 % 10.0 - 50.0 low Not Available [facility] (Lab) [address] [place] [address], 96858, 03/23/2024 08:52:05 03/18/20 24 03/18/2024 CBC W/ DIFFE RENTI AL* mono % 13.1 % 2.0 - 12.0 high Not Available [facility] (Lab) [address] [place] [address], 73884, 03/23/2024 08:52:05 03/18/20 24 03/18/2024 CBC W/ DIFFE RENTI AL* eos % 0.1 % 0.0 - 8.0 Not Available [facility] (Lab) [address] [place] [address], 07303, 03/23/2024 08:52:05 03/18/20 24 03/18/2024 CBC W/ DIFFE RENTI AL* baso % 0.1 % 0.0 - 3.0 Not Available [facility] (Lab) [address] [place], [address], 03/23/2024 08:52:05 03/18/20 24 03/18/2024 CBC W/ DIFFE RENTI AL* Ig % 0.5 % 0.0 - 1.1 Not Available [facility] (Lab) [address] [place] [address], 47816, 03/23/2024 08:52:05 03/18/20 24 03/18/2024 CBC W/ DIFFE RENTI AL* NRBC % 0.0 % 0.0 - 0.0 Not Available [facility] (Lab) [address] [place] [address], [id number], 03/23/2024 08:52:05 03/18/20 24 03/18/2024 CBC W/ DIFFE RENTI AL* neut abs count 11.3 TH/cm m 1.6 - 8.4 high Not Available [facility] (Lab) [address] [place] [address], 53687, 03/23/2024 08:52:05 03/18/20 24 03/18/2024 CBC W/ DIFFE RENTI AL* lymph abs count 0.6 TH/cm m 1.5 - 4.0 low Not Available [facility] (Lab) [address] [place] [address], [id number], 03/23/2024 08:52:05 03/18/20 24 03/18/2024 CBC W/ DIFFE RENTI AL* mono abs count 1.8 TH/cm m 0.2 - 1.0 high Not Available [facility] (Lab) [address] [place] [address], 66139, 03/23/2024 08:52:05 12/11/20 24 03/18/2024 CBC W/ DIFFE RENTI AL* eos abs count 0.0 TH/cm m 0.0 - 0.5 Not Available [facility] (Lab) [address] [place] [address], 49731, 03/23/2024 08:52:05 03/18/20 24 03/18/2024 CBC W/ DIFFE RENTI AL* baso abs count 0.0 TH/cm m 0.0 - 0.2 Not Available [facility] (Lab) [address] [place] [address], [id number], 03/23/2024 08:52:05 03/18/20 24 03/18/2024 CBC W/ DIFFE RENTI AL* Ig abs count 0.1 TH/cm m 0.0 - 0.1 Not Available [facility] (Lab) [address] [place] [address], 40248, 03/23/2024 08:52:05 03/18/20 24 03/18/2024 CBC W/ DIFFE RENTI AL* NRBC abs count 0.0 mil/c mm 0.0 - 0.0 Not Available [facility] (Lab) [address] [place] [address], 77760, 03/23/2024 08:52:05 03/18/20 24 03/18/2024 CBC W/ DIFFE RENTI AL* RBC 3.51 mil/c mm 3.90 - 5.40 low Not Available [facility] (Lab) [address] [place] [address], 05392, 03/23/2024 08:52:05 03/18/20 24 03/18/2024 CBC W/ DIFFE RENTI AL* hemoglobin 10.6 gm/dL 12.0 - 16.0 low Not Available [facility] (Lab) [address] [place] [address], 15183, 03/23/2024 08:52:05 03/18/20 24 03/18/2024 CBC W/ DIFFE RENTI AL* hematocrit 33 % 37 - 47 low Not Available [facility] (Lab) [address] [place] [address], 16080, 03/23/2024 08:52:05 03/18/20 24 03/18/2024 CBC W/ DIFFE RENTI AL* MCV 93 fL 82 - 92 high Not Available [facility] (Lab) [address] [place] [address], 01217, 03/23/2024 08:52:05 03/18/20 24 03/18/2024 CBC W/ DIFFE RENTI AL* MCH 30.2 pg 27.0 - 31.0 Not Available [facility] (Lab) [address] [place] [address], 30851, 03/23/2024 08:52:05 03/18/20 24 03/18/2024 CBC W/ DIFFE RENTI AL* MCHC 32.5 % 32.0 - 36.0 Not Available [facility] (Lab) [address] [place] [address], [id number], 03/23/2024 08:52:05 03/18/20 24 03/18/2024 CBC W/ DIFFE RENTI AL* RDW-SD 48.5 fL 39.0 - 49.0 Not Available [facility] (Lab) [address] [place] [address], 38164, 03/23/2024 08:52:05 03/18/20 24 03/18/2024 CBC W/ DIFFE RENTI AL* platelet count 79 TH/cm m 150 - 450 low Not Available [facility] (Lab) [address] [place] [address], 01323, 03/23/2024 08:52:05 03/18/20 24 03/18/2024 CBC W/ DIFFE RENTI AL* toxic gran 1+ Not Available [facility] (Lab) [address] [place] [address], 59844, 03/23/2024 08:52:05 03/18/20 24 03/18/2024 CBC W/ DIFFE RENTI AL* vaccuol neutr 1+ Not Available [facility] (Lab) [address] [place] [address], 68161, 03/23/2024 08:52:05 03/18/20 24 03/18/2024 CBC W/ DIFFE RENTI AL* giant plts presen t -DARYL L -PREL IMINA RY-RE PORT: 03/18 1854 Not Available [facility] (Lab) [address] [place] [address], 18641, 03/23/2024 08:52:05 03/18/20 24 03/18/2024 CBC W/ DIFFE RENTI AL* WBC 13.71 TH/cm m 5.00 - 10.00 high Not Available [facility] (Lab) [address] [place] [address], 36911, 03/18/2024 20:11:14 03/18/20 24 03/18/2024 CBC W/ DIFFE RENTI AL* neut % 82.2 % 40.0 - 80.0 high Not Available [facility] (Lab) [address] [place] [address], 23743, 03/18/2024 20:11:14 03/18/20 24 03/18/2024 CBC W/ DIFFE RENTI AL* lymph % 4.0 % 10.0 - 50.0 low Not Available [facility] (Lab) [address] [place] [address], 98047, 03/18/2024 20:11:14 03/18/20 24 03/18/2024 CBC W/ DIFFE RENTI AL* mono % 13.1 % 2.0 - 12.0 high Not Available [facility] (Lab) [address] [place] [address], 77322, 03/18/2024 20:11:14 03/18/20 24 03/18/2024 CBC W/ DIFFE RENTI AL* eos % 0.1 % 0.0 - 8.0 Not Available [facility] (Lab) [address] [place] [address], 63665, 03/18/2024 20:11:14 03/18/20 24 03/18/2024 CBC W/ DIFFE RENTI AL* baso % 0.1 % 0.0 - 3.0 Not Available [facility] (Lab) [address] [place] [address], [id number], 03/18/2024 20:11:14 03/18/20 24 03/18/2024 CBC W/ DIFFE RENTI AL* Ig % 0.5 % 0.0 - 1.1 Not Available [facility] (Lab) [address] [place] [address], 84822, 03/18/2024 20:11:14 03/18/20 24 03/18/2024 CBC W/ DIFFE RENTI AL* NRBC % 0.0 % 0.0 - 0.0 Not Available [facility] (Lab) [address] [place] [address], 56956, 03/18/2024 20:11:14 03/18/20 24 03/18/2024 CBC W/ DIFFE RENTI AL* neut abs count 11.3 TH/cm m 1.6 - 8.4 high Not Available [facility] (Lab) [address] [place] [address], 20740, 03/18/2024 20:11:14 03/18/20 24 03/18/2024 CBC W/ DIFFE RENTI AL* lymph abs count 0.6 TH/cm m 1.5 - 4.0 low Not Available [facility] (Lab) [address] [place] [address], 27591, 03/18/2024 20:11:14 03/18/20 24 03/18/2024 CBC W/ DIFFE RENTI AL* mono abs count 1.8 TH/cm m 0.2 - 1.0 high Not Available [facility] (Lab) [address] [place] [address], 57021, 03/18/2024 20:11:14 03/18/20 24 03/18/2024 CBC W/ DIFFE RENTI AL* eos abs count 0.0 TH/cm m 0.0 - 0.5 Not Available [facility] (Lab) [address] [place] [address], 55077, 03/18/2024 20:11:14 03/18/20 24 03/18/2024 CBC W/ DIFFE RENTI AL* baso abs count 0.0 TH/cm m 0.0 - 0.2 Not Available [facility] (Lab) [address] [place] [address], 51816, 03/18/2024 20:11:14 03/18/20 24 03/18/2024 CBC W/ DIFFE RENTI AL* Ig abs count 0.1 TH/cm m 0.0 - 0.1 Not Available [facility] (Lab) [address] [place] [address], 90119, 03/18/2024 20:11:14 03/18/20 24 03/18/2024 CBC W/ DIFFE RENTI AL* NRBC abs count 0.0 mil/c mm 0.0 - 0.0 Not Available [facility] (Lab) [address] [place] [address], 06348, 03/18/2024 20:11:14 03/18/20 24 03/18/2024 CBC W/ DIFFE RENTI AL* RBC 3.51 mil/c mm 3.90 - 5.40 low Not Available [facility] (Lab) [address] [place] [address], 58444, 03/18/2024 20:11:14 03/18/20 24 03/18/2024 CBC W/ DIFFE RENTI AL* hemoglobin 10.6 gm/dL 12.0 - 16.0 low Not Available [facility] (Lab) [address] [place] [address], 93325, 03/18/2024 20:11:14 03/18/20 24 03/18/2024 CBC W/ DIFFE RENTI AL* hematocrit 33 % 37 - 47 low Not Available [facility] (Lab) [address] [place] [address], 33691, 03/18/2024 20:11:14 03/18/20 24 03/18/2024 CBC W/ DIFFE RENTI AL* MCV 93 fL 82 - 92 high Not Available [facility] (Lab) [address] [place] [address], 38550, 03/18/2024 20:11:14 03/18/20 24 03/18/2024 CBC W/ DIFFE RENTI AL* MCH 30.2 pg 27.0 - 31.0 Not Available [facility] (Lab) [address] [place] [address], 92265, 03/18/2024 20:11:14 03/18/20 24 03/18/2024 CBC W/ DIFFE RENTI AL* MCHC 32.5 % 32.0 - 36.0 Not Available [facility] (Lab) [address] [place] [address], 36003, 03/18/2024 20:11:14 03/18/20 24 03/18/2024 CBC W/ DIFFE RENTI AL* RDW-SD 48.5 fL 39.0 - 49.0 Not Available [facility] (Lab) [address] [place] [address], 11865, 03/18/2024 20:11:14 03/18/20 24 03/18/2024 CBC W/ DIFFE RENTI AL* platelet count 79 TH/cm m 150 - 450 low Not Available [facility] (Lab) [address] [place] [address], 57240, 03/18/2024 20:11:14 03/18/20 24 03/18/2024 CBC W/ DIFFE RENTI AL* toxic gran 1+ Not Available [facility] (Lab) [address] [place] [address], 72997, 03/18/2024 20:11:14 03/18/20 24 03/18/2024 CBC W/ DIFFE RENTI AL* vaccuol neutr 1+ -DARYL L -PREL IMINA RY-RE PORT: 03/18 1854 Not Available [facility] (Lab) [address] [place] [address], 59444, 03/18/2024 20:11:14 03/18/20 24 03/18/2024 BASIC METAB OLIC PANEL (BMP) glucose 147 mg/dL 70 - 116 high Not Available [facility] (Lab) [address] [place] [address], [id number], 03/18/2024 19:03:13 03/18/20 24 03/18/2024 BASIC METAB OLIC PANEL (BMP) BUN 29 mg/dL 7 - 17 high Not Available [facility] (Lab) [address] [place] [address], 51202, 03/18/2024 19:03:13 03/18/20 24 03/18/2024 BASIC METAB OLIC PANEL (BMP) creatinine 1.15 mg/dL 0.52 - 1.04 high Not Available [facility] (Lab) [address] [place] [address], 06465, 03/18/2024 19:03:13 03/18/20 24 03/18/2024 BASIC METAB OLIC PANEL (BMP) sodium serum 128 mmol/ L 136 - 145 low Not Available [facility] (Lab) [address] [place] [address], 22412, 03/18/2024 19:03:13 03/18/20 24 03/18/2024 BASIC METAB OLIC PANEL (BMP) potassium serum 5.1 mmol/ L 3.4 - 5.2 Not Available [facility] (Lab) [address] [place], [address], 03/18/2024 19:03:13 03/18/20 24 03/18/2024 BASIC METAB OLIC PANEL (BMP) chloride serum 102 mmol/ L 98 - 107 Not Available [facility] (Lab) [address] [place] [address], 01394, 03/18/2024 19:03:13 03/18/20 24 03/18/2024 BASIC METAB OLIC PANEL (BMP) carbon dioxide (co2) 19 mmol/ L 22 - 30 low Not Available [facility] (Lab) [address] [place] [address], 18727, 03/18/2024 19:03:13 03/18/20 24 03/18/2024 BASIC METAB OLIC PANEL (BMP) anion gap 7.1 mmol/ L Not Available [facility] (Lab) [address] [place] [address], 07936, 03/18/2024 19:03:13 03/18/20 24 03/18/2024 BASIC METAB OLIC PANEL (BMP) calcium serum 8.0 mg/dL 8.4 - 10.2 low Not Available [facility] (Lab) [address] [place] [address], 64314, 03/18/2024 19:03:13 03/18/20 24 03/18/2024 BASIC METAB OLIC PANEL (BMP) age 83 years Not Available [facility] (Lab) [address] [place] [address], 41601, 03/18/2024 19:03:13 03/18/20 24 03/18/2024 BASIC METAB OLIC PANEL (BMP) eGFR (non-afr.hayde r.) 45 mL/mi n Not Available [facility] (Lab) [address] [place] [address], 12169, 03/18/2024 19:03:13 03/18/20 24 03/18/2024 BASIC METAB OLIC PANEL (BMP) eGFR (afr-angeline n) 55 mL/mi n eGFR <60 ml/mi n for >=3 month s is indic ative of chron ic kidne y The eGFR calcu lated using the MDRD Study equat ion is valid ated non hospi taliz ed patie nts 18 to 70 years of age and is not rep patie nts less than 18 years of age. Not Available [facility] (Lab) [address] [place] [address], 49918, 03/18/2024 19:03:13 03/18/20 24 03/18/2024 CBC W/ DIFFE RENTI AL* WBC 13.71 TH/cm m 5.00 - 10.00 high Not Available [facility] (Lab) [address] [place] [address], 61302, 03/18/2024 18:56:13 03/18/20 24 03/18/2024 CBC W/ DIFFE RENTI AL* neut % 82.2 % 40.0 - 80.0 high Not Available [facility] (Lab) [address] [place] [address], 02571, 03/18/2024 18:56:13 03/18/20 24 03/18/2024 CBC W/ DIFFE RENTI AL* lymph % 4.0 % 10.0 - 50.0 low Not Available [facility] (Lab) [address] [place] [address], 90009, 03/18/2024 18:56:13 03/18/20 24 03/18/2024 CBC W/ DIFFE RENTI AL* mono % 13.1 % 2.0 - 12.0 high Not Available [facility] (Lab) [address] [place] [address], 47603, 03/18/2024 18:56:13 03/18/20 24 03/18/2024 CBC W/ DIFFE RENTI AL* eos % 0.1 % 0.0 - 8.0 Not Available [facility] (Lab) [address] [place] [address], 34313, 03/18/2024 18:56:13 03/18/20 24 03/18/2024 CBC W/ DIFFE RENTI AL* baso % 0.1 % 0.0 - 3.0 Not Available [facility] (Lab) [address] [place] [address], 25658, 03/18/2024 18:56:13 03/18/20 24 03/18/2024 CBC W/ DIFFE RENTI AL* Ig % 0.5 % 0.0 - 1.1 Not Available [facility] (Lab) [address] [place] [address], 85656, 03/18/2024 18:56:13 03/18/20 24 03/18/2024 CBC W/ DIFFE RENTI AL* NRBC % 0.0 % 0.0 - 0.0 Not Available [facility] (Lab) [address] [place] [address], 56069, 03/18/2024 18:56:13 03/18/20 24 03/18/2024 CBC W/ DIFFE RENTI AL* neut abs count 11.3 TH/cm m 1.6 - 8.4 high Not Available [facility] (Lab) [address] [place] [address], 91451, 03/18/2024 18:56:13 03/18/20 24 03/18/2024 CBC W/ DIFFE RENTI AL* lymph abs count 0.6 TH/cm m 1.5 - 4.0 low Not Available [facility] (Lab) [address] [place] [address], 06871, 03/18/2024 18:56:13 03/18/20 24 03/18/2024 CBC W/ DIFFE RENTI AL* mono abs count 1.8 TH/cm m 0.2 - 1.0 high Not Available [facility] (Lab) [address] [place] [address], 73218, 03/18/2024 18:56:13 03/18/20 24 03/18/2024 CBC W/ DIFFE RENTI AL* eos abs count 0.0 TH/cm m 0.0 - 0.5 Not Available [facility] (Lab) [address] [place] [address], [id number], 03/18/2024 18:56:13 03/18/20 24 03/18/2024 CBC W/ DIFFE RENTI AL* baso abs count 0.0 TH/cm m 0.0 - 0.2 Not Available [facility] (Lab) [address] [place] [address], [id number], 03/18/2024 18:56:13 03/18/20 24 03/18/2024 CBC W/ DIFFE RENTI AL* Ig abs count 0.1 TH/cm m 0.0 - 0.1 Not Available [facility] (Lab) [address] [place] [address], 82263, 03/18/2024 18:56:13 03/18/20 24 03/18/2024 CBC W/ DIFFE RENTI AL* NRBC abs count 0.0 mil/c mm 0.0 - 0.0 Not Available [facility] (Lab) [address] [place] [address], [id number], 03/18/2024 18:56:13 03/18/20 24 03/18/2024 CBC W/ DIFFE RENTI AL* RBC 3.51 mil/c mm 3.90 - 5.40 low Not Available [facility] (Lab) [address] [place] [address], 10056, 03/18/2024 18:56:13 03/18/20 24 03/18/2024 CBC W/ DIFFE RENTI AL* hemoglobin 10.6 gm/dL 12.0 - 16.0 low Not Available [facility] (Lab) [address] [place] [address], [id number], 03/18/2024 18:56:13 03/18/20 24 03/18/2024 CBC W/ DIFFE RENTI AL* hematocrit 33 % 37 - 47 low Not Available [facility] (Lab) [address] [place] [address], 86372, 03/18/2024 18:56:13 03/18/20 24 03/18/2024 CBC W/ DIFFE RENTI AL* MCV 93 fL 82 - 92 high Not Available [facility] (Lab) [address] [place] [address], [id number], 03/18/2024 18:56:13 03/18/20 24 03/18/2024 CBC W/ DIFFE RENTI AL* MCH 30.2 pg 27.0 - 31.0 Not Available [facility] (Lab) [address] [place] [address], 81179, 03/18/2024 18:56:13 03/18/20 24 03/18/2024 CBC W/ DIFFE RENTI AL* MCHC 32.5 % 32.0 - 36.0 Not Available [facility] (Lab) [address] [place] [address], 95523, 03/18/2024 18:56:13 03/18/20 24 03/18/2024 CBC W/ DIFFE RENTI AL* RDW-SD 48.5 fL 39.0 - 49.0 Not Available [facility] (Lab) [address] [place] [address], [id number], 03/18/2024 18:56:13 03/18/20 24 03/18/2024 CBC W/ DIFFE RENTI AL* platelet count 79 TH/cm m 150 - 450 low -PREL IMINA RY-RE PORT: 03/18 1854 Not Available [facility] (Lab) [address] [place] [address], [id number], 03/18/2024 18:56:13 03/18/20 24 03/18/2024 LACTI C ACID lactic acid 2.3 mmol/ L 0.7 - 2.1 high Not Available [facility] (Lab) [address] [place], [address], 03/18/2024 18:56:12 03/18/20 24 03/18/2024 NOVA GLUCO SE FINGE R HEEL [place]IL [place]OCKY glucose cap 141 mg/dL 70 - 116 high Not Available [facility] (Lab) [address] [place], [id number], 03/18/2024 17:22:09 03/18/20 24 03/18/2024 NOVA GLUCO SE FINGE R HEEL [place] glucose cap 211 mg/dL 70 - 116 high Not Available [facility] (Lab) [address] [place] [address], [id number], 03/18/2024 12:02:06 03/18/20 24 03/18/2024 LACTI C ACID lactic acid 2.2 mmol/ L 0.7 - 2.1 high Not Available [facility] (Lab) [address] [place] [address], [id number], 03/18/2024 08:29:40 03/18/20 24 03/18/2024 NOVA GLUCO SE FINGE R HEEL [place] glucose cap 298 mg/dL 70 - 116 high Not Available [facility] (Lab) [address] [place], [id number], 03/18/2024 07:57:37 03/18/20 24 03/18/2024 NOVA GLUCO SE FINGE R [employer] [place] glucose cap 199 mg/dL 70 - 116 high Not Available [facility] (Lab) [address] [place] [address], [id number], 03/18/2024 02:32:15 03/18/20 24 03/18/2024 CBC W/ DIFFE RENTI AL* WBC 14.26 TH/cm m 5.00 - 10.00 high Not Available [facility] (Lab) [address] [place] [address], [id number], 03/18/2024 05:39:30 03/18/20 24 03/18/2024 CBC W/ DIFFE RENTI AL* neut % 83.7 % 40.0 - 80.0 high Not Available [facility] (Lab) [address] [place] [address], [id number], 03/18/2024 05:39:30 03/18/20 24 03/18/2024 CBC W/ DIFFE RENTI AL* lymph % 3.7 % 10.0 - 50.0 low Not Available [facility] (Lab) [address] [place] [address], [id number], 03/18/2024 05:39:30 03/18/20 24 03/18/2024 CBC W/ DIFFE RENTI AL* mono % 11.6 % 2.0 - 12.0 Not Available [facility] (Lab) [address] [place] [address], [id number], 03/18/2024 05:39:30 03/18/20 24 03/18/2024 CBC W/ DIFFE RENTI AL* eos % 0.1 % 0.0 - 8.0 Not Available [facility] (Lab) [address] [place] [address], [id number], 03/18/2024 05:39:30 03/18/20 24 03/18/2024 CBC W/ DIFFE RENTI AL* baso % 0.1 % 0.0 - 3.0 Not Available [facility] (Lab) [address] [place] [address], [id number], 03/18/2024 05:39:30 03/18/20 24 03/18/2024 CBC W/ DIFFE RENTI AL* Ig % 0.8 % 0.0 - 1.1 Not Available [facility] (Lab) [address] [place] [address], [id number], 03/18/2024 05:39:30 03/18/20 24 03/18/2024 CBC W/ DIFFE RENTI AL* NRBC % 0.0 % 0.0 - 0.0 Not Available [facility] (Lab) [address] [place] [address], [id number], 03/18/2024 05:39:30 03/18/20 24 03/18/2024 CBC W/ DIFFE RENTI AL* neut abs count 11.9 TH/cm m 1.6 - 8.4 high Not Available [facility] (Lab) [address] [place] [address], [id number], 03/18/2024 05:39:30 03/18/20 24 03/18/2024 CBC W/ DIFFE RENTI AL* lymph abs count 0.5 TH/cm m 1.5 - 4.0 low Not Available [facility] (Lab) [address] [place] [address], [id number], 03/18/2024 05:39:30 03/18/20 24 03/18/2024 CBC W/ DIFFE RENTI AL* mono abs count 1.7 TH/cm m 0.2 - 1.0 high Not Available [facility] (Lab) [address] [place] [address], [id number], 03/18/2024 05:39:30 03/18/20 24 03/18/2024 CBC W/ DIFFE RENTI AL* eos abs count 0.0 TH/cm m 0.0 - 0.5 Not Available [facility] (Lab) [address] [place] [address], [id number], 03/18/2024 05:39:30 03/18/20 24 03/18/2024 CBC W/ DIFFE RENTI AL* baso abs count 0.0 TH/cm m 0.0 - 0.2 Not Available [facility] (Lab) [address] [place] [address], [id number], 03/18/2024 05:39:30 03/18/20 24 03/18/2024 CBC W/ DIFFE RENTI AL* Ig abs count 0.1 TH/cm m 0.0 - 0.1 Not Available [facility] (Lab) [address] [place] [address], [id number], 03/18/2024 05:39:30 03/18/20 24 03/18/2024 CBC W/ DIFFE RENTI AL* NRBC abs count 0.0 mil/c mm 0.0 - 0.0 Not Available [facility] (Lab) [address] [place] [address], [id number], 03/18/2024 05:39:30 03/18/20 24 03/18/2024 CBC W/ DIFFE RENTI AL* RBC 3.60 mil/c mm 3.90 - 5.40 low Not Available [facility] (Lab) [address] [place] [address], 74731, 03/18/2024 05:39:30 03/18/20 24 03/18/2024 CBC W/ DIFFE RENTI AL* hemoglobin 10.9 gm/dL 12.0 - 16.0 low Not Available [facility] (Lab) [address] [place] [address], 14490, 03/18/2024 05:39:30 03/18/20 24 03/18/2024 CBC W/ DIFFE RENTI AL* hematocrit 33 % 37 - 47 low Not Available [facility] (Lab) [address] [place] [address], [id number], 03/18/2024 05:39:30 03/18/20 24 03/18/2024 CBC W/ DIFFE RENTI AL* MCV 91 fL 82 - 92 Not Available [facility] (Lab) [address] [place] [address], 11214, 03/18/2024 05:39:30 03/18/20 24 03/18/2024 CBC W/ DIFFE RENTI AL* MCH 30.3 pg 27.0 - 31.0 Not Available [facility] (Lab) [address] [place] [address], [id number], 03/18/2024 05:39:30 03/18/20 24 03/18/2024 CBC W/ DIFFE RENTI AL* MCHC 33.2 % 32.0 - 36.0 Not Available [facility] (Lab) [address] [place] [address], [id number], 03/18/2024 05:39:30 03/18/20 24 03/18/2024 CBC W/ DIFFE RENTI AL* RDW-SD 46.9 fL 39.0 - 49.0 Not Available [facility] (Lab) [address] [place] [address], [id number], 03/18/2024 05:39:30 03/18/20 24 03/18/2024 CBC W/ DIFFE RENTI AL* platelet count 82 TH/cm m 150 - 450 low -PREL IMINA RY-RE PORT: 03/18 0239 -DARYL L Not Available [facility] (Lab) [address] [place] [address], [id number], 03/18/2024 05:39:30 03/18/20 24 03/18/2024 BASIC METAB OLIC PANEL (BMP) glucose 199 mg/dL 70 - 116 high Not Available [facility] (Lab) [address] [place] [address], [id number], 03/18/2024 02:52:17 03/18/20 24 03/18/2024 BASIC METAB OLIC PANEL (BMP) BUN 26 mg/dL 7 - 17 high Not Available [facility] (Lab) [address] [place] [address], [id number], 03/18/2024 02:52:17 03/18/20 24 03/18/2024 BASIC METAB OLIC PANEL (BMP) creatinine 1.01 mg/dL 0.52 - 1.04 Not Available [facility] (Lab) [address] [place] [address] [place], [address], 03/18/2024 02:52:17 03/18/20 24 03/18/2024 BASIC METAB OLIC PANEL (BMP) sodium serum 131 mmol/ L 136 - 145 low Not Available [facility] (Lab) [address] [place] [address], [id number], 03/18/2024 02:52:17 03/18/20 24 03/18/2024 BASIC METAB OLIC PANEL (BMP) potassium serum 2.7 mmol/ L 3.4 - 5.2 critical low { COMME NT: *Conf .-and -call ed-to MUKESH LANDRY TT ER Read- back- confi rmed Not Available [facility] (Lab) [address] [place] [address], [id number], 03/18/2024 02:52:17 03/18/20 24 03/18/2024 BASIC METAB OLIC PANEL (BMP) chloride serum 101 mmol/ L 98 - 107 Not Available [facility] (Lab) [address] [place] [address], 69776, 03/18/2024 02:52:17 03/18/20 24 03/18/2024 BASIC METAB OLIC PANEL (BMP) carbon dioxide (co2) 25 mmol/ L 22 - 30 Not Available [facility] (Lab) [address] [place] [address], 17074, 03/18/2024 02:52:17 03/18/20 24 03/18/2024 BASIC METAB OLIC PANEL (BMP) anion gap 5.6 mmol/ L Not Available [facility] (Lab) [address] [place] [address], [id number], 03/18/2024 02:52:17 03/18/20 24 03/18/2024 BASIC METAB OLIC PANEL (BMP) calcium serum 8.8 mg/dL 8.4 - 10.2 Not Available [facility] (Lab) [address] [place] [address], 05278, 03/18/2024 02:52:17 03/18/20 24 03/18/2024 BASIC METAB OLIC PANEL (BMP) age 83 years Not Available [facility] (Lab) [address] [place] [address], 46497, 03/18/2024 02:52:17 03/18/20 24 03/18/2024 BASIC METAB OLIC PANEL (BMP) eGFR (non-afr.hayde r.) 52 mL/mi n Not Available [facility] (Lab) [address] [place], [address], 03/18/2024 02:52:17 03/18/20 24 03/18/2024 BASIC METAB OLIC PANEL (BMP) eGFR (afr-angeline n) 63 mL/mi n eGFR <60 ml/mi n for >=3 month s is indic ative of chron ic kidne y The eGFR calcu lated using the MDRD Study equat ion is valid ated non hospi taliz ed patie nts 18 to 70 years of age and is not rep patie nts less than 18 years of age. Not Available [facility] (Lab) [address] [place] [address], 56901, 03/18/2024 02:52:17 03/18/20 24 03/18/2024 LACTI C ACID lactic acid 2.2 mmol/ L 0.7 - 2.1 high Not Available [facility] (Lab) [address] [place], [address], 03/18/2024 02:51:16 03/18/20 24 03/18/2024 CBC W/ DIFFE RENTI AL* WBC 14.26 TH/cm m 5.00 - 10.00 high Not Available [facility] (Lab) [address] [place], [address], 03/18/2024 02:40:16 03/18/20 24 03/18/2024 CBC W/ DIFFE RENTI AL* neut % 83.7 % 40.0 - 80.0 high Not Available [facility] (Lab) [address] [place] [address], 17735, 03/18/2024 02:40:16 03/18/20 24 03/18/2024 CBC W/ DIFFE RENTI AL* lymph % 3.7 % 10.0 - 50.0 low Not Available [facility] (Lab) [address] [place] [address], 34201, 03/18/2024 02:40:16 03/18/20 24 03/18/2024 CBC W/ DIFFE RENTI AL* mono % 11.6 % 2.0 - 12.0 Not Available [facility] (Lab) [address] [place] [address], 79971, 03/18/2024 02:40:16 03/18/20 24 03/18/2024 CBC W/ DIFFE RENTI AL* eos % 0.1 % 0.0 - 8.0 Not Available [facility] (Lab) [address] [place] [address], 66610, 03/18/2024 02:40:16 03/18/20 24 03/18/2024 CBC W/ DIFFE RENTI AL* baso % 0.1 % 0.0 - 3.0 Not Available [facility] (Lab) [address] [place] [address], 12947, 03/18/2024 02:40:16 03/18/20 24 03/18/2024 CBC W/ DIFFE RENTI AL* Ig % 0.8 % 0.0 - 1.1 Not Available [facility] (Lab) [address] [place] [address], 08460, 03/18/2024 02:40:16 03/18/20 24 03/18/2024 CBC W/ DIFFE RENTI AL* NRBC % 0.0 % 0.0 - 0.0 Not Available [facility] (Lab) [address] [place] [address], 60567, 03/18/2024 02:40:16 03/18/20 24 03/18/2024 CBC W/ DIFFE RENTI AL* neut abs count 11.9 TH/cm m 1.6 - 8.4 high Not Available [facility] (Lab) [address] [place], [address], 03/18/2024 02:40:16 03/18/20 24 03/18/2024 CBC W/ DIFFE RENTI AL* lymph abs count 0.5 TH/cm m 1.5 - 4.0 low Not Available [facility] (Lab) [address] [place] [address], 37412, 03/18/2024 02:40:16 03/18/20 24 03/18/2024 CBC W/ DIFFE RENTI AL* mono abs count 1.7 TH/cm m 0.2 - 1.0 high Not Available [facility] (Lab) [address] [place] [address], 19150, 03/18/2024 02:40:16 03/18/20 24 03/18/2024 CBC W/ DIFFE RENTI AL* eos abs count 0.0 TH/cm m 0.0 - 0.5 Not Available [facility] (Lab) [address] [place] [address], 65053, 03/18/2024 02:40:16 03/18/20 24 03/18/2024 CBC W/ DIFFE RENTI AL* baso abs count 0.0 TH/cm m 0.0 - 0.2 Not Available [facility] (Lab) [address] [place] [address], 10750, 03/18/2024 02:40:16 03/18/20 24 03/18/2024 CBC W/ DIFFE RENTI AL* Ig abs count 0.1 TH/cm m 0.0 - 0.1 Not Available [facility] (Lab) [address] [place] [address], 38858, 03/18/2024 02:40:16 03/18/20 24 03/18/2024 CBC W/ DIFFE RENTI AL* NRBC abs count 0.0 mil/c mm 0.0 - 0.0 Not Available [facility] (Lab) [address] [place] [address], 37853, 03/18/2024 02:40:16 03/18/20 24 03/18/2024 CBC W/ DIFFE RENTI AL* RBC 3.60 mil/c mm 3.90 - 5.40 low Not Available [facility] (Lab) [address] [place] [address], 12631, 03/18/2024 02:40:16 03/18/20 24 03/18/2024 CBC W/ DIFFE RENTI AL* hemoglobin 10.9 gm/dL 12.0 - 16.0 low Not Available [facility] (Lab) [address] [place] [address], 75450, 03/18/2024 02:40:16 03/18/20 24 03/18/2024 CBC W/ DIFFE RENTI AL* hematocrit 33 % 37 - 47 low Not Available [facility] (Lab) [address] [place] [address], 42450, 03/18/2024 02:40:16 03/18/20 24 03/18/2024 CBC W/ DIFFE RENTI AL* MCV 91 fL 82 - 92 Not Available [facility] (Lab) [address] [place] [address], 61572, 03/18/2024 02:40:16 03/18/20 24 03/18/2024 CBC W/ DIFFE RENTI AL* MCH 30.3 pg 27.0 - 31.0 Not Available [facility] (Lab) [address] [place] [address], 81430, 03/18/2024 02:40:16 03/18/20 24 03/18/2024 CBC W/ DIFFE RENTI AL* MCHC 33.2 % 32.0 - 36.0 Not Available [facility] (Lab) [address] [place] [address], 69632, 03/18/2024 02:40:16 03/18/20 24 03/18/2024 CBC W/ DIFFE RENTI AL* RDW-SD 46.9 fL 39.0 - 49.0 Not Available [facility] (Lab) [address] [place] [address], 20771, 03/18/2024 02:40:16 03/18/20 24 03/18/2024 CBC W/ DIFFE RENTI AL* platelet count 82 TH/cm m 150 - 450 low -PREL IMINA RY-RE PORT: 03/18 0239 Not Available [facility] (Lab) [address] [place] [address], 34476, 03/18/2024 02:40:16 03/19/20 24 03/19/2024 NOVA GLUCO SE FINGE R HEEL [place]IL [place] glucose cap 87 mg/dL 70 - 116 Not Available [facility] (Lab) [address] [place] [address], 70630, 03/19/2024 08:34:18 03/19/20 24 03/19/2024 CBC W/ DIFFE RENTI AL* WBC 12.62 TH/cm m 5.00 - 10.00 high Not Available [facility] (Lab) [address] [place] [address], 96289, 03/19/2024 09:10:22 03/19/20 24 03/19/2024 CBC W/ DIFFE RENTI AL* neut % 80.0 % 40.0 - 80.0 Not Available [facility] (Lab) [address] [place] [address], 97168, 03/19/2024 09:10:22 03/19/20 24 03/19/2024 CBC W/ DIFFE RENTI AL* lymph % 6.3 % 10.0 - 50.0 low Not Available [facility] (Lab) [address] [place] [address], 26285, 03/19/2024 09:10:22 03/19/20 24 03/19/2024 CBC W/ DIFFE RENTI AL* mono % 12.7 % 2.0 - 12.0 high Not Available [facility] (Lab) [address] [place] [address], 13858, 03/19/2024 09:10:22 03/19/20 24 03/19/2024 CBC W/ DIFFE RENTI AL* eos % 0.2 % 0.0 - 8.0 Not Available [facility] (Lab) [address] [place] [address], 45348, 03/19/2024 09:10:22 03/19/20 24 03/19/2024 CBC W/ DIFFE RENTI AL* baso % 0.2 % 0.0 - 3.0 Not Available [facility] (Lab) [address] [place] [address], 54629, 03/19/2024 09:10:22 03/19/20 24 03/19/2024 CBC W/ DIFFE RENTI AL* Ig % 0.6 % 0.0 - 1.1 Not Available [facility] (Lab) [address] [place] [address], 95950, 03/19/2024 09:10:22 03/19/20 24 03/19/2024 CBC W/ DIFFE RENTI AL* NRBC % 0.0 % 0.0 - 0.0 Not Available [facility] (Lab) [address] [place] [address], 71667, 03/19/2024 09:10:22 03/19/20 24 03/19/2024 CBC W/ DIFFE RENTI AL* neut abs count 10.1 TH/cm m 1.6 - 8.4 high Not Available [facility] (Lab) [address] [place] [address], 61093, 03/19/2024 09:10:22 03/19/20 24 03/19/2024 CBC W/ DIFFE RENTI AL* lymph abs count 0.8 TH/cm m 1.5 - 4.0 low Not Available [facility] (Lab) [address] [place] [address], 94767, 03/19/2024 09:10:22 03/19/20 24 03/19/2024 CBC W/ DIFFE RENTI AL* mono abs count 1.6 TH/cm m 0.2 - 1.0 high Not Available [facility] (Lab) [address] [place] [address], 22524, 03/19/2024 09:10:22 03/19/20 24 03/19/2024 CBC W/ DIFFE RENTI AL* eos abs count 0.0 TH/cm m 0.0 - 0.5 Not Available [facility] (Lab) [address] [place] [address], 07299, 03/19/2024 09:10:22 03/19/20 24 03/19/2024 CBC W/ DIFFE RENTI AL* baso abs count 0.0 TH/cm m 0.0 - 0.2 Not Available [facility] (Lab) [address] [place] [address], 35559, 03/19/2024 09:10:22 03/19/20 24 03/19/2024 CBC W/ DIFFE RENTI AL* Ig abs count 0.1 TH/cm m 0.0 - 0.1 Not Available [facility] (Lab) [address] [place] [address], 45307, 03/19/2024 09:10:22 03/19/20 24 03/19/2024 CBC W/ DIFFE RENTI AL* NRBC abs count 0.0 mil/c mm 0.0 - 0.0 Not Available [facility] (Lab) [address] [place] [address], 78637, 03/19/2024 09:10:22 03/19/20 24 03/19/2024 CBC W/ DIFFE RENTI AL* RBC 3.59 mil/c mm 3.90 - 5.40 low Not Available [facility] (Lab) [address] [place] [address], 07783, 03/19/2024 09:10:22 03/19/20 24 03/19/2024 CBC W/ DIFFE RENTI AL* hemoglobin 10.8 gm/dL 12.0 - 16.0 low Not Available [facility] (Lab) [address] [place] [address], 70761, 03/19/2024 09:10:22 03/19/20 24 03/19/2024 CBC W/ DIFFE RENTI AL* hematocrit 33 % 37 - 47 low Not Available [facility] (Lab) [address] [place] [address], 29842, 03/19/2024 09:10:22 03/19/20 24 03/19/2024 CBC W/ DIFFE RENTI AL* MCV 91 fL 82 - 92 Not Available [facility] (Lab) [address] [place] [address], 13630, 03/19/2024 09:10:22 03/19/20 24 03/19/2024 CBC W/ DIFFE RENTI AL* MCH 30.1 pg 27.0 - 31.0 Not Available [facility] (Lab) [address] [place] [address], 41170, 03/19/2024 09:10:22 03/19/20 24 03/19/2024 CBC W/ DIFFE RENTI AL* MCHC 33.0 % 32.0 - 36.0 Not Available [facility] (Lab) [address] [place] [address], 34786, 03/19/2024 09:10:22 03/19/20 24 03/19/2024 CBC W/ DIFFE RENTI AL* RDW-SD 47.6 fL 39.0 - 49.0 Not Available [facility] (Lab) [address] [place] [address], 22042, 03/19/2024 09:10:22 03/19/20 24 03/19/2024 CBC W/ DIFFE JUDITH AL* platelet count 89 TH/cm m 150 - 450 low Not Available [facility] (Lab) [address] [place] [address], 41486, 03/19/2024 09:10:22 03/19/20 24 03/19/2024 CBC W/ DIFFE JUDITH AL* ovalocytes 2+ -PREL IMINA RY-RE PORT: 03/19 0813 -DARYL L Not Available [facility] (Lab) [address] [place] [address], 09415, 03/19/2024 09:10:22 03/19/20 24 03/19/2024 MAGNE SIUM SERUM * magnesium 1.2 mg/dL 1.6 - 2.3 low Not Available [facility] (Lab) [address] [place] [address], 47128, 03/19/2024 10:10:30 03/19/20 24 03/19/2024 BASIC METAB OLIC PANEL (BMP) glucose 80 mg/dL 70 - 116 Not Available [facility] (Lab) [address] [place] [address], 95656, 03/19/2024 09:30:26 03/19/20 24 03/19/2024 BASIC METAB OLIC PANEL (BMP) BUN 32 mg/dL 7 - 17 high Not Available [facility] (Lab) [address] [place] [address], 12884, 03/19/2024 09:30:26 03/19/20 24 03/19/2024 BASIC METAB OLIC PANEL (BMP) creatinine 1.18 mg/dL 0.52 - 1.04 high Not Available [facility] (Lab) [address] [place] [address], 85142, 03/19/2024 09:30:26 03/19/20 24 03/19/2024 BASIC METAB OLIC PANEL (BMP) sodium serum 132 mmol/ L 136 - 145 low Not Available [facility] (Lab) [address] [place] [address], 63278, 03/19/2024 09:30:26 03/19/20 24 03/19/2024 BASIC METAB OLIC PANEL (BMP) potassium serum 4.6 mmol/ L 3.4 - 5.2 Not Available [facility] (Lab) [address] [place], [address], 03/19/2024 09:30:26 03/19/20 24 03/19/2024 BASIC METAB OLIC PANEL (BMP) chloride serum 104 mmol/ L 98 - 107 Not Available [facility] (Lab) [address] [place] [address], 59219, 03/19/2024 09:30:26 03/19/20 24 03/19/2024 BASIC METAB OLIC PANEL (BMP) carbon dioxide (co2) 20 mmol/ L 22 - 30 low Not Available [facility] (Lab) [address] [place] [address], 89613, 03/19/2024 09:30:26 03/19/20 24 03/19/2024 BASIC METAB OLIC PANEL (BMP) anion gap 7.4 mmol/ L Not Available [facility] (Lab) [address] [place] [address], 36167, 03/19/2024 09:30:26 03/19/20 24 03/19/2024 BASIC METAB OLIC PANEL (BMP) calcium serum 8.5 mg/dL 8.4 - 10.2 Not Available [facility] (Lab) [address] [place] [address], 20545, 03/19/2024 09:30:26 03/19/20 24 03/19/2024 BASIC METAB OLIC PANEL (BMP) age 83 years Not Available [facility] (Lab) [address] [place] [address], 96278, 03/19/2024 09:30:26 03/19/20 24 03/19/2024 BASIC METAB OLIC PANEL (BMP) eGFR (non-afr.hayde r.) 44 mL/mi n Not Available [facility] (Lab) [address] [place] [address], 59967, 03/19/2024 09:30:26 03/19/20 24 03/19/2024 BASIC METAB OLIC PANEL (BMP) eGFR (afr-angeline n) 53 mL/mi n eGFR <60 ml/mi n for >=3 month s is indic ative of chron ic kidne y The eGFR calcu lated using the MDRD Study equat ion is valid ated non hospi taliz ed patie nts 18 to 70 years of age and is not rep patie nts less than 18 years of age. Not Available [facility] (Lab) [address] [place] [address], [id number], 03/19/2024 09:30:26 03/19/20 24 03/19/2024 LACTI C ACID lactic acid 1.8 mmol/ L 0.7 - 2.1 Not Available [facility] (Lab) [address] [place] [address], 05814, 03/19/2024 09:29:26 03/19/20 24 03/19/2024 CBC W/ DIFFE RENTI AL* WBC 12.62 TH/cm m 5.00 - 10.00 high Not Available [facility] (Lab) [address] [place] [address], 30204, 03/19/2024 08:14:14 03/19/20 24 03/19/2024 CBC W/ DIFFE RENTI AL* neut % 80.0 % 40.0 - 80.0 Not Available [facility] (Lab) [address] [place] [address], 08131, 03/19/2024 08:14:14 03/19/20 24 03/19/2024 CBC W/ DIFFE RENTI AL* lymph % 6.3 % 10.0 - 50.0 low Not Available [facility] (Lab) [address] [place] [address], 36040, 03/19/2024 08:14:14 03/19/20 24 03/19/2024 CBC W/ DIFFE RENTI AL* mono % 12.7 % 2.0 - 12.0 high Not Available [facility] (Lab) [address] [place] [address], 13833, 03/19/2024 08:14:14 03/19/20 24 03/19/2024 CBC W/ DIFFE RENTI AL* eos % 0.2 % 0.0 - 8.0 Not Available [facility] (Lab) [address] [place] [address], 27223, 03/19/2024 08:14:14 03/19/20 24 03/19/2024 CBC W/ DIFFE RENTI AL* baso % 0.2 % 0.0 - 3.0 Not Available [facility] (Lab) [address] [place] [address], 83784, 03/19/2024 08:14:14 03/19/20 24 03/19/2024 CBC W/ DIFFE RENTI AL* Ig % 0.6 % 0.0 - 1.1 Not Available [facility] (Lab) [address] [place] [address], 49195, 03/19/2024 08:14:14 03/19/20 24 03/19/2024 CBC W/ DIFFE RENTI AL* NRBC % 0.0 % 0.0 - 0.0 Not Available [facility] (Lab) [address] [place] [address], 10526, 03/19/2024 08:14:14 03/19/20 24 03/19/2024 CBC W/ DIFFE RENTI AL* neut abs count 10.1 TH/cm m 1.6 - 8.4 high Not Available [facility] (Lab) [address] [place] [address], 23433, 03/19/2024 08:14:14 03/19/20 24 03/19/2024 CBC W/ DIFFE RENTI AL* lymph abs count 0.8 TH/cm m 1.5 - 4.0 low Not Available [facility] (Lab) [address] [place] [address], 14627, 03/19/2024 08:14:14 03/19/20 24 03/19/2024 CBC W/ DIFFE RENTI AL* mono abs count 1.6 TH/cm m 0.2 - 1.0 high Not Available [facility] (Lab) [address] [place] [address], 93086, 03/19/2024 08:14:14 03/19/20 24 03/19/2024 CBC W/ DIFFE RENTI AL* eos abs count 0.0 TH/cm m 0.0 - 0.5 Not Available [facility] (Lab) [address] [place] [address], 62523, 03/19/2024 08:14:14 03/19/20 24 03/19/2024 CBC W/ DIFFE RENTI AL* baso abs count 0.0 TH/cm m 0.0 - 0.2 Not Available [facility] (Lab) [address] [place] [address], 90840, 03/19/2024 08:14:14 03/19/20 24 03/19/2024 CBC W/ DIFFE RENTI AL* Ig abs count 0.1 TH/cm m 0.0 - 0.1 Not Available [facility] (Lab) [address] [place] [address], [id number], 03/19/2024 08:14:14 03/19/20 24 03/19/2024 CBC W/ DIFFE RENTI AL* NRBC abs count 0.0 mil/c mm 0.0 - 0.0 Not Available [facility] (Lab) [address] [place] [address], 36820, 03/19/2024 08:14:14 03/19/20 24 03/19/2024 CBC W/ DIFFE RENTI AL* RBC 3.59 mil/c mm 3.90 - 5.40 low Not Available [facility] (Lab) [address] [place] [address], 27191, 03/19/2024 08:14:14 03/19/20 24 03/19/2024 CBC W/ DIFFE RENTI AL* hemoglobin 10.8 gm/dL 12.0 - 16.0 low Not Available [facility] (Lab) [address] [place] [address], 33684, 03/19/2024 08:14:14 03/19/20 24 03/19/2024 CBC W/ DIFFE RENTI AL* hematocrit 33 % 37 - 47 low Not Available [facility] (Lab) [address] [place] [address], 33417, 03/19/2024 08:14:14 03/19/20 24 03/19/2024 CBC W/ DIFFE RENTI AL* MCV 91 fL 82 - 92 Not Available [facility] (Lab) [address] [place] [address], 98553, 03/19/2024 08:14:14 03/19/20 24 03/19/2024 CBC W/ DIFFE RENTI AL* MCH 30.1 pg 27.0 - 31.0 Not Available [facility] (Lab) [address] [place] [address], 51053, 03/19/2024 08:14:14 03/19/20 24 03/19/2024 CBC W/ DIFFE RENTI AL* MCHC 33.0 % 32.0 - 36.0 Not Available [facility] (Lab) [address] [place] [address], [id number], 03/19/2024 08:14:14 03/19/20 24 03/19/2024 CBC W/ DIFFE JUDITH AL* RDW-SD 47.6 fL 39.0 - 49.0 Not Available [facility] (Lab) [address] [place], [address], 03/19/2024 08:14:14 03/19/20 24 03/19/2024 CBC W/ DIFFE JUDITH AL* platelet count 89 TH/cm m 150 - 450 low -PREL IMINA RY-RE PORT: 03/19 0813 Not Available [facility] (Lab) [address] [place] [address], [id number], 03/19/2024 08:14:14 03/23/20 24 03/23/2024 BASIC METAB OLIC PANEL calcium 9.6 mg/dL 8.5-10 .1 normal Not Available [address] [place], [address] 03/23/2024 15:01:20 03/23/20 24 03/23/2024 BASIC METAB OLIC PANEL glucose 141 mg/dL 74-106 high Not Available Saray martinez [address] [facility] [place], [address] 03/23/2024 15:01:20 03/23/20 24 03/23/2024 BASIC METAB OLIC PANEL BUN 20 mg/dL 7-18 high Not Available Saray martinez [address] [facility] [place], [address] 03/23/2024 15:01:20 03/23/20 24 03/23/2024 BASIC METAB OLIC PANEL creatinine 1.0 mg/dL 0.55-1 .02 normal Not Available [address] [place], [address] 03/23/2024 15:01:20 03/23/20 24 03/23/2024 BASIC METAB OLIC PANEL estimated GFR 56.25 mL/min /1.73M 2 The eGFR is calcu lated from a serum creat inine using the CKD-E PI 2020 equat ion. Other varia bles requi red for the equat ion are gende r and age; this equat ion does not inclu de a race coeff icien t. This equat ion has simil ar overa ll perfo rmanc e to previ ous equat ions excep t value s may diffe r, in parti cular , in patie nts with highe r value s of eGFR and young er-ag ed adult s. Not Available [address] [place], [address] 03/23/2024 15:01:20 03/23/20 24 03/23/2024 BASIC METAB OLIC PANEL sodium 140 mmol/ L 136-14 5 normal Not Available [address] [place], [address] 03/23/2024 15:01:20 03/23/20 24 03/23/2024 BASIC METAB OLIC PANEL potassium 4.4 mmol/ L 3.5-5. 1 normal Not Available [address] [place], [address] 03/23/2024 15:01:20 03/23/20 24 03/23/2024 BASIC METAB OLIC PANEL chloride 104 mmol/ L 98-107 normal Not Available [address] [place], [address] 03/23/2024 15:01:20 03/23/20 24 03/23/2024 BASIC METAB OLIC PANEL CO2 27.6 mmol/ L 21.0-3 2.0 normal Not Available [address] [place], [address] 03/23/2024 15:01:20 03/23/20 24 03/23/2024 BASIC METAB OLIC PANEL anion gap 8.4 mmol/ L 3-11 normal Not Available [address] [place], [address] 03/23/2024 15:01:20 04/16/19 25 04/17/2024 URINE CULTU RE urine culture Urine Cultu re ACTIO N ID AND SUSCE PTIBI LITY TO FOLLO W APPEA IVAN Gram Negat tyler Mathieu COLON Y COUNT Not Available [address] [place], [address] 04/17/2024 11:46:39 04/16/19 25 04/17/2024 URINE CULTU RE urine culture colon ies/m L 50,00 0 - 100,0 00 Day 1 Resul t ISOLA DILMA BELOW O:GNR (ORGA NISM ID: [id number]) - Gram negat tyler mathieu Urine Cultu re (ORGA NISM ID: [id number]) - COLON Y COUNT (ORGA NISM ID: 1.1) - 50,00 0 - 100,0 00 Not Available [facility] [address] , [place], [address] 04/17/2024 11:46:39 04/16/19 25 04/16/2024 urina lysis , dipst ick Leukocytes Modera te Not Available [address], [address], 04/16/2024 14:28:35 04/16/19 25 04/16/2024 urina lysis , dipst ick Nitrite negati ve Not Available [address], [address], 04/16/2024 14:28:35 04/16/19 25 04/16/2024 urina lysis , dipst ick Urobilinogen .2 Not Available [address], [address], 04/16/2024 14:28:35 04/16/19 25 04/16/2024 urina lysis , dipst ick Protein Negati ve Not Available [address], [address], 04/16/2024 14:28:35 04/16/19 25 04/16/2024 urina lysis , dipst ick pH 7.0 Not Available [facility] [address] [place], [address], 04/16/2024 14:28:35 04/16/19 25 04/16/2024 urina lysis , dipst ick Blood Large Not Available [address], [address], 04/16/2024 14:28:35 04/16/19 25 04/16/2024 urina lysis , dipst ick Specific [place] 1.000 Not Available [address], [address], 04/16/2024 14:28:35 04/16/19 25 04/16/2024 urina lysis , dipst ick Ketone Trace Not Available [address], [address], 04/16/2024 14:28:35 04/16/19 25 04/16/2024 urina lysis , dipst ick Bilirubin Negati ve Not Available [address], [address], 04/16/2024 14:28:35 04/16/19 25 04/16/2024 urina lysis , dipst ick Glucose Negati ve Not Available [address], [address], 04/16/2024 14:28:35 04/16/19 25 04/16/2024 urina lysis , dipst ick Appearance Slight ly Cloudy Not Available [address], [address], 04/16/2024 14:28:35 04/16/19 25 04/16/2024 urina lysis , dipst ick Color Pale Yellow Not Available [address], [address], 04/16/2024 14:28:35 03/17/20 24 03/17/2024 xr chest 2V Pa and later al [facility] RADIOL OGY [place] [id number] RADIOL OGY TRANSC RIPTIO N REPORT _ Patien t Name: CRISTEL SEGUNDO MRN: Sex: : Age: [id number] F [id number] Accoun t: Access ion: Admit: StayTy pe: [id number] 2023 E Ravinder d: Order ID: Submit nate: David Klein er: 2023 16:03 [id number] Zoey MOSLEY nate: Techno logist : Result ed: 2023 16:09 REUBEN 2023 16:28 _ EXAMIN ATION: XR CHEST [...] clips the right upper quadra nt. IMPRES TY: Stable interv al exam, no eviden ce of pneumo shirlene. Thank you for zbigniew mcdaniels us partic ipate in the care of this nicole bermudez. If you are a health care provid er and have any questi ons regard ing this report , please contac t the number below. For patien ts who have questi ons please contac t the health care profes sional that reques nate your imagin g first. Electr onical ly signed by: Kimberly Keith MD Radiol sohan ji ([phone]), at 2023 4:28 PM INTERFACE [facility] (Lab) [address] [place] [address], [address], 03/17/2024 16:35:27 03/17/20 24 03/17/2024 E[facility] aly [facility] bayVirgilioamelie [address] EK TRANSC RIPTIO Carmen REPORT _ Accoun t: Access ion: Admit: StayTy pe: [id number] 2023 E/R Observ ation: Order ID: Submit nate: David aly [facility] er: 2023 16:34 [id number] KIN BOYLE _ [place] [id number] [facility] Test Date: 2023-04 Pat Name: KAYLEE Khan Depart ment: [facility] b[facility]ude[facility] ID: [id number] Room: Gender : Yue Reardon perri: jr : 1941-0 3-17 Reques nate By: FRANC Yanes Order Number : [id number] Kelby mcdaniels MD: Jung Corona Measur ements Interv als Lankin Rate: 109 P: 57 HI: 182 QRS: -22 QRSD: 92 T: 0 QT: 328 QTc: 441 Interp retive Statem ents Sinus tachyc ardia Poor R wave progre ssion, likely due to lead placem ent Compar ed to ECG 2023 09:24: 01 Sinus rhythm no longer presen t Electr onical ly Signed On 2023 19:33: 53 EST by Jung Corona INTERFACE [facility] (Lab) [address] [place] [address], [address], 03/17/2024 19:35:41 Result Notes None recorded. Problems Name Problem SNOMED Code Status Onset Date Resolution Date Notes Provider Name and Address Organization Details Recorded Time Acute lower respirat ory tract infectio n 125332858 Completed 202303/27/[address], [facility] [address] , [facility] 4 14:21:53 Acute confusio n 857277804 Completed 202303/27/[address], [place], [address] , [facility] 4 14:21:53 Mild intermit tent asthma 218388320 Active [address], [place], [address] , [facility] 4 15:28:45 Chronic cough 44870602 Active [address], [place], [address] , [facility] 5 14:11:35 Dysuria 66079850 Active 2024 Problem Code: R30.0; Problem Code Type: ICD-10; MD Livan RODRIGUEZ Dr, [address] 5 14:40:58 Dry lips 699891768 Active [address], [address] 5 15:15:20 Loose stool 066614601 Active [address], [address] 5 15:16:13 Encopres is 195879554 Active [address], [address] 5 15:16:22 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 829970565 Active [address], [address] 5 15:16:36 Essentia l hyperten ty 17435058 Completed 201305/13/2023 Problem Code: I10; Problem Code Type: ICD-10; MD Livan RODRIGUEZ Dr, [address] 4 13:45:04 Migraine 96770330 Active 2013 Gail rodriguez, [facility] 4 12:45:27 History of disorder of digestiv e system 502355938 Completed 201305/13/2023 Problem Code: Z87.19; Problem Code Type: ICD-10; MD Livan RODRIGUEZ Dr, [address] 4 13:45:04 Restless legs 86944530 [facility] 2013 [facility] 4 12:48:18 Disorder of nervous system due to type 2 diabetes mellitus 970137733 Completed 201305/13/2023 04/27/19 20 - Comments only [...] Livan RODRIGUEZ Dr, [facility] [address] , [facility] 4 13:45:04 Allergic rhinitis 75476505 Completed 201305/13/2023 Problem Code: J30.9; Problem Code Type: ICD-10; MD Livan RODRIGUEZ Dr, [facility] [address] , [facility] 4 13:45:04 Mixed hyperlip idemia 484040448 Active 2013 [facility] 4 12:45:48 Neuropat hy due to type 2 diabetes mellitus 20226530078 9106 Active 2013 [facility] 4 12:46:16 Intolera nce to lactose 010355461 Completed 201305/13/2023 Problem Code: E73.9; Problem Code Type: ICD-10; MD Livan RODRIGUEZ Dr, [facility] [address] , [facility] 4 13:45:04 Heart murmur 19417232 Active [address], [place], [address] , [facility] 4 06:52:52 History of malignan t neoplasm of bladder 973253210 Active 2013, recurren ce 2008, Dr. Boykin, chemo instilla tion, straight caths [facility] 4 12:43:10 History of nutritio nal disorder 958004812 Completed 201405/13/[address], [place], [address] , [facility] 4 13:45:04 Irritabl e bowel syndrome 15152156 Active 2014 [facility], [facility] 4 12:45:06 Eczema 25435701 Active 2014 [facility] 4 12:38:10 Hernia of abdomina l cavity 66920707 Active 2015 [facility] 4 12:41:15 Cirrhosi s of liver 83643493 Completed 201505/13/2023 09/22/19 20 - Comments only - Nat Bryant M.D. - Has gained some weight, and possibly has ascites, although I have never examined her before. Follow-u p as planned tomorrow for imaging, labs, and speciali [facility] ent at [facility]. Problem Code: K74.69; Problem Code Type: ICD-10; MD Livan RODRIGUEZ Dr, [place], [address] , [facility] 4 13:45:04 History of urinary tract infectio n 51881737446 07 Completed 201505/13/2023 08/03/19 16 - Comments [...] Code Type: ICD-10; MD Livan RODRIGUEZ Dr, [address] 4 13:45:04 Screenin g for malignan t neoplasm of breast Completed 201505/13/2023 Problem Code: Z12.39; Problem Code Type: ICD-10; MD Livan RODRIGUEZ Dr, [address] 4 13:45:04 Candidia sis of vagina 84587354 Completed 201505/13/2023 Problem Code: B37.3; Problem Code Type: ICD-10; MD Livan RODRIGUEZ Dr, [address] 4 13:45:04 Portal hyperten ty 19422772 Active 2015 no ascites or encephal opathy, EGD 2015 (gastric ulcer) [facility] 12:47:45 Genitour inary symptoms 033246597 Completed 201504/17/2016 Problem Code: R39.89; Problem Code Type: ICD-10; Not Available [facility] 3 04:10:10 Screenin g for malignan t neoplasm of colon Completed 201605/13/2023 Problem Code: Z12.11; Problem Code Type: ICD-10; MD Livan RODRIGUEZ Dr, [address] 4 13:45:04 Pneumoni a 260015278 Completed 201602/15/2017 02/12/20 17 - Improved - 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 ACCOUNTING INTERN - s/p tx with azithrom ycin pt signific antly improved RTC if sx worsen/p ersist Problem Code: J18.9; Problem Code Type: ICD-10; MD Livan RODRIGUEZ Dr, [facility] [address] , [facility] 4 14:21:53 Orthosta tic hypotens ion 93967371 Active 2017 [facility] 4 12:46:41 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 Active 2018 small endoscop y 2019 [facility] repeat one year Gail Lavern [facility] 4 12:39:42 Hepatic failure 32069244 Completed 201805/13/2023 Problem Code: K72.90; Problem Code Type: ICD-10; MD Livan RODRIGUEZ Dr, [facility] [address] , [facility] 4 13:45:04 Acute upper respirat ory infectio n 38471236 Completed 201811/08/2018 Problem Code: J06.9; Problem Code Type: ICD-10; MD Livan RODRIGUEZ Dr, [facility] [address] , [facility] 4 13:45:04 Proteinu vinod 77086312 Completed 201805/13/2023 Problem Code: R80.9; Problem Code Type: ICD-10; MD Livan RODRIGUEZ Dr, [facility] [address] , [facility] 4 13:45:04 Hyperlip idemia 15058392 Active 2018 [facility] 4 12:44:49 Gastroes ophageal reflux disease without esophagi tis 450107717 Active 2019 Gail rodriguez [facility] 4 12:39:54 Urinary tract infectio us disease 05306699 Completed 201909/29/2019 09/22/19 20 - Comments only [...] Problem Code Type: ICD-10; Not Available [facility] 3 04:10:12 Nervous system and sense organ diseases 190381658 Completed 202005/13/[address], [place], [address] , [facility] 4 13:45:04 Fall on or from stairs or steps Completed 202005/27/2020 Problem Code: W10.9xxA ; Problem Code Type: ICD-10; Not Available [facility] 3 04:10:12 Knee joint effusion 669336260 Completed 202006/06/2020 Problem Code: M25.469; Problem Code Type: ICD-10; Not Available [facility] 3 04:10:13 Low back pain 671832884 Completed 202006/20/2020 Problem Code: M54.5; Problem Code Type: ICD-10; INDIRA YEN Dr, [place], [address] , [facility] 4 14:31:55 Dysuria 61891073 Completed 202009/03/2020 Problem Code: R30.0; Problem Code Type: ICD-10; MD Livan RODRIGUEZ Dr, [place], [address] , [facility] 5 14:40:58 Psychoph ysiologi c insomnia 463149053 Active 2020 Insomnia , chronic Gail rodriguez, [facility] 4 12:48:07 Dizzines s and giddines s 642190058 Completed 202010/31/2020 Problem Code: R42; Problem Code Type: ICD-10; Not Available [facility] 3 04:10:14 Atrophic vaginiti s 68744635 Active 2020 Gail Puckett [facility], [facility] 4 12:37:19 Urinary tract infectio us disease 33678948 Completed 202003/03/2021 Problem Code: N39.0; Problem Code Type: ICD-10; Not Available [facility] 3 04:10:14 Disorder of hematopo ietic structur e 870961374 Completed 202105/13/2023 Problem Code: D75.89; Problem Code Type: ICD-10; MD Livan RODRIGUEZ Dr, [place], [address] , [facility] 4 13:45:04 Tension- type headache 986245501 Completed 202105/13/2023 Problem Code: G44.209; Problem Code Type: ICD-10; MD Livan RODR[address] Dr, [place], [address] , [facility] 4 13:45:04 Acute conjunct ivitis of left eye 93106681598 9105 Completed 202112/19/2021 12/13/19 22 - Comments only - Nat Bryant M.D. - Likely bacteria l. Rx sent for e-mycin ointment . Call for reevalua tion if worsenin g, or no better w/in 48 hours. Problem Code: H10.32; Problem Code Type: ICD-10; Not Available [facility] 3 04:10:15 Cerebrov ascular disease 17162060 Active 2021 [facility] 4 12:37:49 Urinary tract infectio us disease 28202656 Completed 202208/28/2022 Problem Code: N39.0; Problem Code Type: ICD-10; Not Available [facility] 3 04:10:15 Pneumoni a 895932624 Completed 202211/08/2022 10/30/19 23 - Improved - Aysha Barillas MD - But with persiste nt evidence of congesti on in right lung. Advised chest x-ray in a couple of weeks to evaluate for any persiste nt abnormal ities requirin g further follow-u p. She has not had imaging yet with this infectio n. Problem Code: J18.9; Problem Code Type: ICD-10; AYSHA BARILLAS MD [address], [place], [address] [facility] 4 14:21:53 Edema 365511828 Active 2022 Peripher al edema [facility] 4 12:38:42 Castillo' s esophagu s 878762466 Active 2022 [facility] 4 12:37:33 Candidia sis of skin 29346881 Completed 201810/23/2022 Problem Code: B37.2; Problem Code Type: ICD-10; Not Available [facility] 3 04:10:16 Acute atopic conjunct ivitis 68171519 Completed 201804/21/2019 Problem Code: H10.10; Problem Code Type: ICD-10; Not Available [facility] 3 04:10:16 Constipa tion 97860209 Completed 201301/02/2023 Problem Code: K59.00; Problem Code Type: ICD-10; Not Available [facility] 3 04:10:16 Cough 59459086 Completed 202201/02/2023 Problem Code: R05.8; Problem Code Type: ICD-10; MD Livan RODRIGUEZ Dr, [place], [address] , [facility] 4 14:21:53 Hyperten sive disorder 40889754 Completed 201301/02/2023 Not Available [facility] 3 04:10:17 Neoplasm of urinary bladder 525779639 Completed 201301/02/2023 Problem Code: D49.4; Problem Code Type: ICD-10; Not Available [facility] 3 04:10:17 Enthesop athy 15401451 Completed 201812/26/2020 Problem Code: M77.9; Problem Code Type: ICD-10; Not Available [facility] 3 04:10:17 Hypercal cemia 03939843 Completed 201401/02/2023 Not Available [facility] 3 04:10:18 Lung field abnormal 375030573 Completed 201607/29/2017 Problem Code: R91.8; Problem Code Type: ICD-10; Not Available [facility] 3 04:10:18 Insomnia 457748959 Completed 201906/06/2021 Problem Code: F51.09; Problem Code Type: ICD-10; Not Available [facility] 3 04:10:18 Disorder of lung 92440279 Completed 201710/23/2022 Problem Code: J98.4; Problem Code Type: ICD-10; Not Available [facility] 3 04:10:18 Type 2 diabetes mellitus without complica tion 251680073 Completed 201301/02/2023 Problem Code: E11.9; Problem Code Type: ICD-10; IN[address]A [address], [place], [address] , [facility] 4 15:17:00 Pain of left shoulder joint 75707161117 512587 Completed 201406/06/2021 Problem Code: M25.512; Problem Code Type: ICD-10; Not Available [facility] 3 04:10:19 Screenin g for osteopor osis Completed 201602/11/2017 Problem Code: Z13.820; Problem Code Type: ICD-10; Not Available [facility] 3 04:10:19 Inflamed seborrhe ic keratosi s 215227710 Completed 201910/23/2022 Problem Code: L82.0; Problem Code Type: ICD-10; Not Available [facility] 3 04:10:20 Disorder of brain 74882352 Completed 202103/05/2022 Problem Code: G93.40; Problem Code Type: ICD-10; Not Available [facility] 3 04:10:20 Other idiopath ic peripher al neuropat hy NOS Completed 201301/02/2023 Not Available [facility] 3 04:10:20 Obesity 712927286 Completed 201301/02/2023 Not Available [facility] 3 04:10:20 Fatigue 98720624 Completed 201810/27/2018 Problem Code: R53.83; Problem Code Type: ICD-10; Not Available [facility] 3 04:10:21 Genitour inary symptoms 728143454 Completed 201904/04/2020 Problem Code: R39.9; Problem Code Type: ICD-10; Not Available [facility] 3 04:10:21 Benign paroxysm al position al vertigo 055998345 Completed 202001/02/2023 Problem Code: H81.10; Problem Code Type: ICD-10; Not Available [facility] 3 04:10:22 Disorder of skin and/or subcutan eous tissue 34268591 Completed 201904/04/2020 Problem Code: L98.9; Problem Code Type: ICD-10; Not Available [facility] 3 04:10:22 Osteophy te of bone 32045620158 9100 Completed 201906/28/2020 Problem Code: M25.776; Problem Code Type: ICD-10; Not Available [facility] 3 04:10:22 Gastric ulcer 439037423 Completed 201501/02/2023 Problem Code: K25.9; Problem Code Type: ICD-10; Not Available [facility] 3 04:10:22 Right side sciatica 55450113106 9101 Completed 201804/21/2019 Problem Code: M54.31; Problem Code Type: ICD-10; Not Available [facility] 3 04:10:23 Candidia sis 12651738 Completed 201308/22/2015 Problem Code: B37.9; Problem Code Type: ICD-10; Not Available [facility] 3 04:10:23 Steatosi s of liver 463985671 Completed 201302/10/2016 Problem Code: K76.0; Problem Code Type: ICD-10; Not Available [facility] 3 04:10:23 Cough 23022081 Completed 201912/26/2020 Problem Code: R05; Problem Code Type: ICD-10; AYSHA BARILLAS MD [address], [place], [address] [facility] 4 14:21:53 Xerostom ia 96404710 Completed 202006/06/2021 Problem Code: R68.2; Problem Code Type: ICD-10; Gail rodriguez, [facility] 4 12:49:03 Candidal vulvovag initis 05389461 Completed 201301/02/2023 Problem Code: 112.1; Problem Code Type: ICD-9; Not Available [facility] 3 04:10:25 Intestin al disaccha ridase deficien cy 90599480 Completed 201301/02/2023 Problem Code: 271.3; Problem Code Type: ICD-9; Not Available [facility] 3 04:10:25 Acute bronchit is 92214747 Completed 201912/26/2020 Problem Code: J20.9; Problem Code Type: ICD-10; Not Available [facility] 3 04:10:26 Peripher al nerve disease 793235873 Completed 201301/02/2023 Not Available [facility] 3 04:10:26 Acute upper respirat ory infectio n 37513192 Completed 202205/13/2023 Problem Code: J06.9; Problem Code Type: ICD-10; MD Livan RODRIGUEZ Dr, [address] 4 13:45:04 Diastoli c heart failure 064477094 Active 2022 echo 03/[address], [address] 3 11:17:46 Chest pain 28673277 Completed 202205/13/2023 Problem Code: R07.89; Problem Code Type: ICD-10; MD Livan RODRIGUEZ Dr, [address] 4 13:45:03 Aortic stenosis , non-rheu matic 113131534 Active 2022 mild 03/2023 echo MD Livan RODRIGUEZ Dr, [address] 4 06:52:21 Senile hyperker atosis 989962107 Completed 202205/13/2023 Problem Code: L82.1; Problem Code Type: ICD-10; MD Livan RODRIGUEZ Dr, [facility] [address] [place] [address] 4 13:45:03 Melanocy tic nevus 711827183 Completed 202205/13/2023 Problem Code: D22.9; Problem Code Type: ICD-10; MD Livan R[address] Dr, [place], [address] , [facility] 4 13:45:04 Incoordi nation 610785962 Completed 202205/13/2023 01/31/20 23 - Comments only - Aysha Barillas MD - neuro exam not c/w CVA; will eval further at next visit. Problem Code: R27.9; Problem Code Type: ICD-10; MD Livan R[address] Dr, [place], [address] , [facility] 13:45:03 Dyspnea 555337780 Completed 202205/13/2023 Problem Code: R06.09; Problem Code Type: ICD-10; MD Livan ROD[address] Dr, [place], [address] , [facility] 13:45:03 Chronic diarrhea 959074047 Active 2023 Gail Lavern [facility], [facility] 12:37:57 Drug-ind uced xerostom ia 657732839 Active [address], [place], [address] , [facility] 13:38:38 Microalb uminuric diabetic nephropa thy 529259404 Active 2023 Gail Lavern null, [facility] 4 12:45:11 Dyspnea on exertion 14397453 Active 2023 Gial Lavern null, [facility] 12:37:57 Angular cheiliti s 829126106 Active 2023 Gail Lavern null, [facility] 12:36:56 Xerostom ia 45070904 Active 2023 Gail Lavern null, [facility] 4 12:49:03 History of adenomat ous polyp of colon 246750063 Active 2020 Gail Puckett null, [facility] 4 12:43:44 Sialskye plasencia 82934473 Completed 202308/09/[address], [place] [address] , [facility] 4 16:48:36 Low back pain 767756044 Active 2023 Problem Code: M54.5; Problem Code Type: ICD-10; INDIRA YEN Dr, [place] [address] , [facility] 14:31:55 Chest pain on exertion 82158221 Active [address], [place] [address] , [facility] 12:24:41 Always hungry 485023790 Active [address], [place] [address] , [facility] 16:38:32 Altered bowel function 50298143 Active [address], [place] [address] , [facility] 4 16:38:44 Atypical chest pain 515675018 Active 2023 DORIS JONES MA null, [facility] 4 07:31:04 Acquired thromboc ytopenia 31835157 Active [address], [facility] [address] , [facility] 09:56:08 Actinic keratosi s 342802230 Active [address], [place], [place], [address] [place] [address] , [facility] 4 13:34:57 Nodule of lung 055189943 Active 2023 probable lipoma by PET. (benign) MD Livan RODRIGUEZ Dr, [place], [place], [address] [place] [address] 4 06:49:28 Minimal cognitiv e impairme nt 017356942 Active [address], [address] 4 15:05:52 New daily persiste nt headache 80234336411 9105 Active [address], [address] 4 16:29:33 Lichen sclerosu s of vulva 129381802 Active [address], [address] 15:22:25 Milia 883422175 Active [address], [address] 15:51:39 Obstruct tyler sleep apnea syndrome 23798230 Active 2023 DORIS JONES MA null, [facility] 4 09:39:29 Atherosc lerosis Active 2023 DORIS JONES MA null, [facility] 4 09:39:44 Cirrhosi s - non-alco holic 487456032 Active 2023 with esoph varices and low PLT but no ascites, jaundice or sx. MD Livan RODRIGUEZ Dr, [address] [employer] 4 06:56:02 Vulvitis 02778952 Active [address], [place] [address] , [facility] 4 13:20:01 Thromboc ytopenic disorder 890437975 Active [address], [place] [address] , [facility] 4 13:23:28 Decompen sated cirrhosi s of liver 422241174 Active [address], [place] [address] , [facility] 4 14:23:47 Type 2 diabetes mellitus without complica tion 096368624 Active 2023 Problem Code: E11.9; Problem Code Type: ICD-10; INDIRA [address], [place], [address] , [facility] 4 15:17:00 Coronary arterios clerosis 92234069 Active 2023 DORIS JONES MA [facility], [facility] 4 12:31:32 Hyperpig mentatio n of skin 92386686 Active [address], [facility] [address] , [facility] 4 15:19:42 Pneumoni a 695678077 Completed 202303/27/2024 10/30/19 23 - Improved - Aysha Barillas MD - But with persiste nt evidence of congesti on in right lung. Advised chest x-ray in a couple of weeks to evaluate for any persiste nt abnormal ities requirin g further follow-u p. She has not had imaging yet with this infectio n. Problem Code: J18.9; Problem Code Type: ICD-10; MD Livan ROD[address] Dr, [place], [address] , [facility] 14:21:53 Cough 43253667 Completed 202303/27/2024 Problem Code: R05.8; Problem Code Type: ICD-10; MD Livan RODRIGUEZ Dr, [facility] [address] , [facility] 14:21:53 Notes:Some problems listed i n Document: #[id number] could not be added to this patient's chart. Please review this document and add these problems to the patient's chart manually as needed. Problem Notes None recorded. Procedures Surgical History Date Name Laterality Status Provider Name and Address Organization Details Recorded Time 4 Cryosurgery Multiple Actinic Keratoses completed MD Livan RODRIGUEZ Dr, [facility] [address], [facility] 03/06/2024 11:24:31 4 Cryosurgery Warts/Skin Tags completed MD Livan RODRIGUEZ Dr, [facility] [address], [facility] 10/18/2023 15:47:48 4 Cryosurgery Warts/Skin Tags completed MD Livan RODRIGUEZ Dr, [facility] [address] 10/07/2023 13:34:27 Imaging Results Imaging Date Name Status LastModified by Organiz ation Details LastModified Time 03/17/2024 xr chest 2V Pa and lateral completed [facility] (Lab) [address] [place], [address], 03/17/2024 16:35:27 03/17/2024 EKG order tracing 12 lead completed [facility] (Lab) [address] [place], [address], 03/17/2024 19:35:41 Procedure Notes None recorded. Medical Equipment None Reported. Allergies Allergen ID Allergen Name Allergen Category Reaction Reaction Severity Criticality Documentation Date Start Date Code Code System Note Provider Name and Address Organization Details Recorded Time 47151 erythromy laura medicatio n other moderate Not available 02/15/20232013 4053 RxNorm stoma ch pain [facility] 4 12:53:11 79348 Bactrim medicatio n itching moderate Not available 08/01/20232013 28349 9 RxNorm itchy skin [facility] 12:51:33 18589 codeine medicatio n itching moderate Not available 08/01/20232013 2670 RxNorm itchy , paran oid [facility] 12:52:07 79033 Demerol medicatio n other moderate Not available 08/01/20232013 77298 1 RxNorm can' t sleep [facility] 12:52:55 86888 simvastat in medicatio n nausea moderate Not available 08/01/20232013 85637 RxNorm (ALLS TATIN S) [facility] 12:53:40 43630 Trulicity medicatio n vomiting moderate low 09/25/2023 36714 96 RxNorm AYSHA BARILLAS MD [address], [place], [address] [place] [address] 4 12:57:22 Medications Name Sig Start Date [...] a day by oral route. 2023 active [facility] GI Not Available [...] every day by oral route. 03/19 completed julio c[facility]ar canales n for hypokale morro Not Available Not [...] once a day 12/[address] Wallis, [facility], after August 2022 OV Not Available Not Available Not Available gabapenti n 800 mg tablet Take 1 tablet by mouth three times a day 2019 active Not Available Not Available Not Avai lable MapadoToGOOM Ultra Test strips USE 1 STRIP VIA [...] capsule by mouth three times a day 03/27 completed Not Available Not [...] Relief 50 mcg/actua tion nasal spray,moraima pension [place] 1 spray into both nostrils once a [...] Updated DateTime 4 154.94 cm 26 kg/m2 20753.9 5 g 96 % 96 % 84 /min 98.4 [degF] 120 mm[Hg] 64 mm[Hg] SANTOSH BAIG LPN [facility] 4 13:55:28 Date Recorded Body height Body mass index (BMI) Body weight Body temperature Oxygen saturation Oxygen saturation in Arterial blood by Pulse oximetry Heart rate Systolic blood pressure Diastolic blood pressure Provider Name and Address Organization Details Last Updated DateTime 4 154.94 cm 26.5 kg/m2 51893.9 3 g 97.6 [degF] 97 % 97 % 83 /min 120 mm[Hg] 58 mm[Hg] ABDIRAHMAN MURRY RN [facility] 4 14:13:12 Date Recorded Body height Body mass index (BMI) Body weight Body temperature Oxygen saturation Oxygen saturation in Arterial blood by Pulse oximetry Heart rate Systolic blood pressure Diastolic blood pressure Provider Name and Address Organization Details Last Updated DateTime 5 154.94 cm 26.5 kg/m2 52717.9 3 g 97.8 [degF] 98 % 98 % 90 /min 132 mm[Hg] 60 mm[Hg] ABDIRAHMAN MURRY RN [facility] 5 13:43:54 Social History Question Answer Notes LastModified by Organizat ion Details LastModified Time Tobacco Smoking Status Never Smoker GIOVANNA ASIF, [facility] 03/18/2023 15:57:23 Would You Say That, In General, Your Health Is Good [email or web address] Information not available 08/09/2023 How Often Does Anyone, Including Family, Physically Hurt You? Never Information not available 08/09/2023 How Often Does Anyone, Including Family, Insult Or Talk Down To You? Rarely [email or web address] Information no t available 08/09/2023 How Often Does Anyone, Including Family, Threaten You With Harm? Never [email or web address] Information not available 08/09/2023 How Often Does Anyone, Including Family, Scream Or Curse At You? Never [email or web address] Information not available 08/09/2023 Within The Past 12 Months, You Worried That Your Food Would Run Out Before You Got Money To Buy More. Never True Information n ot available 08/09/2023 Within The Past 12 Months, The Food You Bought Just Didn't Last And You Didn't Have Money To Get More. Never True [email or web address] Information not available 08/09/2023 How Hard Is It For You To Pay For The Very Basics Like Food, Housing, Medical Care, And Heating? Would You Say It Is: Somewhat Hard [email or web address] Information not available 08/09/2023 In The Past 12 Months, Has Lack Of Reliable Transportation Kept You From Medical Appointments, Meetings, Work Or From Getting Things Needed For Daily Living? No [email or web address] Information not available 08/09/2023 What Is Your Housing Situation Today? I Have Housing. [email or web address] Information not available 08/09/2023 How Often In The Past Year Have You Used Marijuana (including Smoking, Vaping, Dabbing, Or Edibles)? Never [email or web address] Information not available 08/09/2023 How Often In The Past Year Have You Used Prescription Medications That Were Not Prescribed To You? Never [email or web address] Information not available 08/09/2023 How Often In The Past Year Have You Taken Your Own Prescription Medication More Than The Way It Was Prescribed Or For Different Reasons Than Its Intended Purpose? Never Information not available 08/09/2023 How Often In The Past Year Have You Used Other Drugs (for Example, Heroin, Cocaine, Meth, Salvia, Inhalants)? Never [email or web address] Information not available 08/09/2023 Have You Ever Used IV Drugs? No [email or web address] Information not available 08/09/2023 Date Of Most Recent SBINS 08/09/2023 [email or web address] Information not available 08/09/2023 What Was The Date Of Your Most Recent Tobacco Screening? 10/18/2023 [email or web address] Information n ot available 10/18/2023 Has Tobacco Cessation Counseling Been Provided? No [email or web address] Information not available 10/25/2023 Do You Or Have You Ever Used Any Other Forms Of Tobacco Or Nicotine? No [email or web address] Information not available 03/18/2023 Sex: Female Functional Status None recorded. Mental Status None recorded. Family History Relationship Description Onset Age of this Age Resolved Age Notes LastModified by Organization Details LastModified Time Mother Family history of acute medical disorder [email or web address] Not available 2022 03:54:47 Notes:*Problem: Mother: d. 6 7 , cirrhosis, non ETOH Father: d. [place], acute hepatitis Sisters: x1, cirrhosis, non ETOH, [...] high-dose, trivalent, PF 4 completed GIOVANNA ASIF [facility] 01/09/2024 16:25:43 COVID-19, mRNA, LNP-S, PF, mayito-sucrose, 30 mcg/0.3 mL 4 completed GIOVANNA ASIF [facility] 01/09/2024 16:25:43 Td (adult), 2 Lf tetanus toxoid, preservative free, adsorbed 7 completed Not Available [facility] 02/15/2023 05:29:32 Hep A-Hep B 7 completed Not Available [facility] 02/15/2023 05:29:32 Hep A-Hep B 6 completed Not Available [facility] 02/15/2023 05:29:32 Tdap 7 completed Not Available [facility] 02/15/2023 05:29:32 Pneumococcal conjugate PCV 13 7 completed Not Available [facility] 02/15/2023 05:29:32 Td(adult) unspecified formulation 6 completed Not Available [facility] 02/15/2023 05:29:32 Influenza, split virus, trivalent, preservative 6 completed Not Available [facility] 02/15/2023 05:29:32 Influenza, split virus, trivalent, preservative 5 completed Not Available [facility] 02/15/2023 05:29:32 Influenza, split virus, quadrivalent, PF 2 completed Not Available [facility] 02/15/2023 05:29:33 Influenza, split virus, quadrivalent, PF 3 completed Not Available [facility] 02/15/2023 05:29:33 Influenza, split virus, quadrivalent, preservative 7 completed Not Available [facility] 02/15/2023 05:29:33 Influenza, split virus, quadrivalent, preservative 8 completed Not Available [facility] 02/15/2023 05:29:33 Influenza, high-dose, quadrivalent, PF 1 completed Not Available [facility] 02/15/2023 05:29:33 COVID-19, mRNA, LNP-S, PF, 100 mcg/0.5mL dose or 50 mcg/0.25mL dose 1 completed Not Available [facility] 02/15/2023 05:29:33 COVID-19, mRNA, LNP-S, PF, 100 mcg/0.5mL dose or 50 mcg/0.25mL dose 1 completed Not Available [facility] 02/15/2023 05:29:33 COVID-19, mRNA, LNP-S, PF, 100 mcg/0.5mL dose or 50 mcg/0.25mL dose 2 completed Not Available [facility] 02/15/2023 05:29:33 SARS-COV-2 (COVID-19) vaccine, UNSPECIFIED 1 completed Not Available [facility] 02/15/2023 05:29:34 COVID-19, mRNA, LNP-S, bivalent, PF, 30 mcg/0.3 mL dose 3 completed Not Available [facility] 02/15/2023 05:29:34 COVID-19, mRNA, LNP-S, bivalent, PF, 30 mcg/0.3 mL dose 2 completed Not Available [facility] 02/15/2023 05:29:34 pneumococcal polysaccharide PPV23 7 completed Not Available [facility] 02/15/2023 05:29:34 pneumococcal polysaccharide PPV23 5 completed Not Available [facility] 02/15/2023 05:29:34 pneumococcal polysaccharide PPV23 1 completed Not Available [facility] 02/15/2023 05:29:34 Hep B, adult 7 completed Not Available [facility] 02/15/2023 05:29:34 influenza, unspecified formulation 8 completed Not Available [facility] 02/15/2023 05:29:34 influenza, unspecified formulation 4 completed Not Available [facility] 02/15/2023 05:29:34 influenza, unspecified formulation 9 completed Not Available [facility] 02/15/2023 05:29:35 Influenza, high-dose, quadrivalent, PF 3 completed Not Available [facility] 04/19/2023 05:31:38 COVID-19, mRNA, LNP-S, PF, mayito-sucrose, 30 mcg/0.3 mL 3 completed Not Available [facility] 04/19/2023 05:31:38 Past Encounters Encounter ID Performer Location Encounter Start Date Encounter Closed Date Diagnosis/Indication Diagnosis SNOMED-CT Code Diagnosis ICD10 Code Diagnosis Note [id number] MARY PRETTY MA [address] [address] 03/18/2023 15:41:08 03/18/2023 16:50:55 Acute upper respiratory infection 16890641 J06.9 82-year-ol d woman with a history of cirrhosis, HTN, DM, and PNA 4 months ago, with 2 weeks of productive cough. No fevers. VSS, IMPROVING today. she does have bilateral feet rales which do not clear with cough. Because she is stable and improving, I would like her to obtain chest x-ray rule out pneumonia vs atelectasi s, tomorrow morning, order sent. Supportive care as below, follow-up based on chest x-ray results and we reviewed overnight ED precaution s. [id number] AYSHA BARILLAS MD [address] [address] 05/13/2023 12:43:04 05/13/2023 13:39:15 Diastolic heart failure 903558627 I50.30 euvolemic, BP and lipids at goal. continue current management . Decompensa nate cirrhosis of liver 934635520 K74.60 stable, no evidence of variceal bleeding, jaundice, ascites or encephalop athy. continue to monitor. Neuropathy due to type 2 diabetes mellitus 9396222975 04910 E11.40 due for eye exam, has scheduled in 2 weeks. Next A1c due in 3 months. Chronic diarrhea 8873584 09 K52.9 Of unclear etiology, metformin could certainly be contributi ng. It started prior to Victoza. Advised short hold of metformin to see if this is the culprit. Continue as needed Imodium. Known IBS may also be contributo ry. Drug-induc ed xerostomia 932181013 K11.7 Reviewed likely connection to amitriptyl ine and risks associated with this medication in her age group. Advised decrease of 50 to 25 mg, with earlier administra tion of gabapentin to help with sleep as well as neuropathy . Continue use of lozenges and/or gum. Patient reassured that there was no evidence of thrush. Restless legs 64120357 G 25.81 Continue current DA agonist. Psychophys iologic insomnia 251317773 F51.04 see above. [id number] AYSHA BARILLAS MD [address] [address] 07/12/2023 14:13:20 07/12/2023 14:46:20 Angular cheilitis 282956591 K13.0 Advised combining topical hydrocorti sone with nystatin and apply twice daily to affected skin. Reassess in 2 weeks if no significan t improvemen t. Xerostomia 02374906 R68. 2 Provided handout and reviewed conservati ve management strategies for addressing associated discomfort . [id number] AYSHA BARILLAS MD [address] [address] 08/07/2023 15:48:14 08/07/2023 16:41:31 Sialoadenitis 32603658 K11.20 Conservati ve management discussed with patient. Instructed to keep well hydrated, apply moist heat to the involved area, massage the gland the duct, and suck on tart, hard candies to promote salivary flow. Pain should be managed with low-dose of NSAIDs or Tylenol. Patient understand s and is in agreement plan. Continue to monitor and follow-up as needed. Low back pain 035296966 M54.50 Reports lower back pain for the past several days. Pain has resolved at this time. If pain returns supportive care discussed with patient including rest with gentle stretching , heat, muscle rubs. Follow-up as needed. [id number] AYSHA BARILALS MD [address] [address] 08/09/2023 11:39:31 08/09/2023 12:32:25 Neuropathy due to type 2 diabetes mellitus 7557082502 98328 E11.40 A1c up slightly. Reviewed option of increase in Victoza versus addition of an SGLT2 inhibitor and she opted for the latter. Reviewed potential side effects and instructio ns for use. Xerostomia 31696285 R68. 2 and burning of the mouth. No evidence of abnormal lesions or sialoadeni tis.- Plan: a. Transition the patient off amitriptyl ine to reduce dry mouth symptoms. b. Prescribe trazodone 50 mg tablets as an alternativ e sleep aid, starting with one tablet and adjusting the dose as needed. Decompensa nate cirrhosis of liver 822365559 K74.60 stable, no evidence of variceal bleeding, jaundice, ascites or encephalop athy. Stable mild thrombocyt openia. Followed by [facility] hepatology . Continue to monitor. Advised hep B vaccinatio n through the pharmacy. Chest pain on exertion 79274639 R07.89 Advised follow-up with her cardiologi st to determine if PCI is indicated. Reviewed indication s for nitroglyce rin and for calling 911. Esophageal varices without bleeding 75431533 I85.00 She will transition from metoprolol to carvedilol per hepatologi st recommenda tions. Psychophys iologic insomnia 900751294 F51.04 - Plan:a. Transition the patient off amitriptyl ine to reduce dry mouth symptoms.b . Prescribe trazodone 50 mg tablets as an alternativ e sleep aid, starting with one tablet and adjusting the dose as needed. [id number] AYSHA BARILLAS MD [address] [address] 08/27/2023 13:10:54 08/27/2023 14:44:36 Xerostomia 31104357 R68.2 Burning has resolved but dry mouth sensation continues. Encouraged lowest needed trazodone dose to minimize dry mouth. Psychophys iologic insomnia 947016161 F51.04 Continue the use of trazodone as needed for sleep, but at the lowest effective dose to minimize dry mouth symptoms. Encourage good sleep hygiene practices and follow up on the effectiven ess of the current treatment. - Plan: a. Patient has transition ed off amitriptyl ine to reduce dry mouth symptoms. b. Continue trazodone 50 to 100 mg at bedtime as needed. Neuropathy due to type 2 diabetes mellitus 4778762018 82951 E11.40 Continue the current management with Jardiance, monitor for any symptoms of UTI or yeast infection. Continue d-mannose for UTI prophylaxi s. Benign par oxysmal positional vertigo 469497885 H81.10 Encourage the patient to continue home exercises and conservati ve strategies for vertigo management while awaiting PT appointmen t in about a month. Monitor patient's symptoms and consider alternativ e treatments or earlier PT interventi on if symptoms worsen or do not improve. [id number] AYSHA BARILLAS MD [address] [address] 09/24/2023 15:53:59 09/24/2023 16:41:26 Always hungry 600792572 R63.8 Weight has been stable with healthy BMI but she would like to consider switching from Victoza to another GLP agonist. She recalls having poor tolerance to one of the weekly agents however. Will check with prior PCP to see if she recalls which as none are listed in her allergy list. Altered reuben wel function 54828833 R19.4 Difficult to tell if this is primarily a constipati on or diarrheal problem given frequent use of antidiarrh eal agents and reported straining. History of adenomatou s polyp 13 years ago with no further follow-up screenings . guaiac negative on SHEILA today. Advised a fiber supplement trial of and Colace if needed, decreased use of antidiarrh eal agents, if symptoms persist after several weeks recommende d diagnostic colonoscop y which she is reluctant to pursue. History of adenomatous polyp of colon 696366171 Z86.010 See above. [id number] AYSHA BARILLAS MD [facility] [address] [place] [address] 10/07/2023 12:38:43 10/07/2023 13:32:27 Actinic keratosis 443876062 L57.0 L eyelid. Tx'd with liq nitrogen today. Re-eval at next visit, consider optho referral if still present. 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 Will try to get semiurgent hematology referral prior to cardiac cath given possible need for dual antiplatel et agent. Nodule of lung 920215294 R91.1 enlarging, 2 x 1.5cm; reviewed with [facility]ology, PET-CT warranted. Pt would like done at [facility]. Chest pain on exertion 23557494 R07.89 Dr. Ortega does recommend cardiac cath. Patient would like to have this done at [facility]. We are going to try to get a hematology consult first given her chronic low platelet count. After discussion with [facility] radiology, I think evaluation of her enlarging pulmonary nodule is also important and urgent. See above. Minimal co gnitive impairment 325150636 R41.89 She does seem to have some general confusion about her medication s and has evidence of mild cognitive impairment that we may be should evaluate further at future visit. Will plan for more formal eval at future visit. New daily persistent headache 3361496443 48552 G44.52 concerning in light of suspicious and enlarging pulmonary nodule but patient does have history of migraine headaches so benign etiology also possible. No red flags in terms of wgt loss or other neuro sx. Advised monitoring for any precipitat ing factors, early utilizatio n of Tylenol and rest to help with management , and follow-up if they persist or worsen. [id number] AYSHA BARILLAS MD [address] [address] 10/18/2023 14:36:15 10/18/2023 15:35:43 Restless legs 79176916 G25.81 Reviewed safe dosing of pramipexol e which is between 0.5 and 0.75 mg, replaced lower dose tablets with 0.5 mg ones. Lichen scl erosus of vulva 431157670 N90.4 Suspected on the basis of hypopigmen tation although atrophic vaginitis is also a likely contributo r. Will keep in mind possible contributi on of Jardiance but this definitely does not look like a yeast infection and it did not respond to antifungal cream. Will treat with clobetasol , with reeval in 3 weeks. Consider Estrogen if symptoms not well-contr olled. Also recommende d a barrier cream such as A&D ointment or zinc oxide cream. Milia 491297634 L72.0 Advised conservati ve management . Actinic keratosis 007 L57.0 L eyelid. re-Tx'd with liq nitrogen today. Re-eval at next visit, consider optho referral if still present. [id number] AYSHA BARILLAS MD [address] [address] 10/25/2023 10:28:44 10/25/2023 11:17:17 Lichen sclerosus of vulva 851438351 N90.4 Agree with proposed dx of lichen sclerosus. Pt feels not improving after 1 week of clobetasol use.We reviewed use of clobetasol , and showed patient with mirror that the areas of discolorat ion extend towards vaginal introitus. Doubt yeast based on appearance , however, given that she continues on Jardiance did get vaginitis swab today.Revi ewed recommenda tion for use of a barrier cream such as A&D ointment or zinc oxide cream, which she has not yet tried. Eruption of vulva 244303 006 R21 See above [id number] AYSHA BARILLAS MD [address] [address] 11/08/2023 11:13:01 11/08/2023 12:30:59 Nodule of lung 429782301 R91.1 stable, benign by recent PET. Lichen scl erosus of vulva 342190572 N90.4 Suspected on the basis of hypopigmen tation although atrophic vaginitis is also a likely contributo r. Will keep in mind possible contributi on of Jardiance but this definitely does not look like a yeast infection and it did not respond to antifungal cream. Will treat with clobetasol , with re eval in 3 weeks. Consider Estrogen if symptoms not well-contr olled. Also recommende d a barrier cream such as A&D ointment or zinc oxide cream. Actinic keratosis L57.0 did not re-assess today, will do so at next OV. Xerostomia 20113929 R68. 2 improved with Biotene and increased water intake. 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 Awaiting heme c/s as PCI for cont'd CP needed. Restless legs 27226726 G 25.81 did not address recent increase in pamiprexol e today, will do so at next visit. Neuropathy due to type 2 diabetes mellitus 7418665266 67458 E11.40 Given inability to continue GLP-1 agonist and side effects with Jardiance, advised trial of Januvia instead which is available at low cost through [facility]. Continue metformin as well. A1c today at goal, improved from August. Will reassess at next visit in 3 months. Vulvitis 07430661 N76.2 with candidal component. Suspect Jardiance may have contribute d, as well as possibly topical steroid. Advised holding jardiance, continue topical clotrimazo le, discontinu e cephalexin and clobetasol . Use mari-bottl e after each toileting for hygiene purposes. Barrier cream encouraged . F/u in 1 wk if sx not signif'ly better. [id number] AYSHA BARILLAS MD [address] [address] 12/02/2023 13:22:05 12/02/2023 14:48:40 Decompensated cirrhosis of liver 854038010 K74.60 she has generally been stable, now with 2 weeks of increased pedal and ankle edema with weight gain and faint bibasilar crackles., no evidence of variceal bleeding, jaundice, ascites or encephalop athy. Stable mild thrombocyt openia. Followed by [facility] hepatology . DDx of increased ankle swelling includes hepatorena l syndrome, CKD, CHF, or inactivity and dependence due to exertional CP. Plan:- labs for renal and hepatic fct, lytes, BNP, and CBC.- STOP metoprolol , continue carvedilol - torsemide 10 mg QD x 5 days and reassess Esophageal varices without bleeding 11427917 I85.00 Erroneousl y taking carvedilol and metoprolol together. She will transition from metoprolol to carvedilol per hepatologi st recommenda tions. Metoprolol removed from her medication list and she was given verbal and written instructio ns. Atypical chest pain 1025 16899 R07.89 Plan through [facility] cardiology for left heart cath has been on hold while waiting for hematology referral for thrombocyt openia, reviewed [facility] note today, deferring hematology visit as thrombocyt openia is explained by cirrhosis. When we call her tomorrow with her lab results we will explain this and work to coordinate care with cardiology . [id number] MAHENDRA GUZMAN, INDIRA [address] [address] 12/17/2023 10:14:08 12/17/2023 10:52:15 Decompensated cirrhosis of liver [id number] K74.60 improved, edema is gone, weight is down, and no difficulty breathingS table mild thrombocyt openia. Followed by [facility] hepatology .- continue carvedilol - continue torsemide 10 mg QD - rx sent- f/u as planned with PCP in one month to check in, review meds, and review stress test Esophageal varices without bleeding 86964208 I85.00 Was erroneousl y taking carvedilol and metoprolol together. Now only taking carvedilol Atypical chest pain 1025 43749 R07.89 [facility] the [facility] [place] 500 mg twice daily Type 2 abbi betes mellitus without complication 744567827 E11.9 Is to continue januvia, NOT TAKING SGLT2i. reviewed with pt and rx sent . Cr 0.9, GFR 63 [id number] MARY PRETTY MA [address] [address] 01/09/2024 13:35:22 01/09/2024 14:34:57 Active or passive immunization 271461492 Z23 Patient/Pa rent/Guard kt answered all the COVID screening questions with a Marissa villanueva Cirrhosis - non-alcoholic 821662846 K74.60 stable, compensate d. continue carvedilol for variceal management . Minimal co gnitive impairment 226421061 R41.89 Pursuing bubble packing of meds to assist with management . Consider slums or other formal cognitive screening at next visit. Hyperlipidemia 92516009 E78.5 continue current statin therapy. Diastolic heart failure 289244723 I50.30 euvolemic, BP and lipids at goal. continue current management . Restless legs 49271690 G 25.81 did not address recent increase in pamiprexol e today, will do so at next visit. Neuropathy due to type 2 diabetes mellitus 6421624455 33006 E11.40 continue gabapentin . A1C at goal, recheck in 3 months. Hyperpigme ntation of skin 08272586 L81.9 reassuranc e provided. No active rash evident. Atherosclerosis 96870978 I70.90 Assessment : Patient had a normal stress test, indicating no need for a catheter procedure. - Plan:a. Discontinu e ranolazine and Imdur.b. Continue carvedilol for blood pressure and angina management .c. Monitor for any changes in chest pain or symptoms. [id number] JUDITH PEÑA RN [address] [address] 02/05/2024 14:49:21 02/05/2024 15:25:56 Cough 54853028 R05.9 OTC rapid Covid test neg. Pneumonia 064610218 J18. 9 possible, on basis of LLL rales. Patient with allergy to macrolides and sulfa, will treat with doxycyclin e particular ly given prevalence of atypical pneumonia currently. Also recommende d Mucinex to help with thinning secretions . May use albuterol as needed. Reviewed indication s for re-evaluat ion. [id number] AYSHA BARILLAS MD [address] [address] 03/04/2024 13:41:07 03/04/2024 14:36:13 Neuropathy due to type 2 diabetes mellitus 1711351318 60421 E11.40 Actinic keratosis 197079 007 L57.0 L eyelid, treated with cryotherap y today, re-eval at next OV. Decompensa nate cirrhosis of liver 611281350 K74.60 Chronic diarrhea 1441362 09 K52.9 Castillo's esophagus 3029 19104 K22.70 Atypical chest pain 1025 33354 R07.89 Psychophys iologic insomnia 589900732 F51.04 Cough 62913922 R05.9 [id number] AYSHA BARILLAS MD [address] [address] 03/17/2024 13:44:52 03/17/2024 16:08:58 Acute lower respiratory tract infection 937487045 J22 Findings concerning for possible pneumonia. Advised ER evaluation . Updated Julio César provider. Her will bring her directly there. Acute confusion 22906055 0 R41.0 She was unable to give me any details and seemed more confused than usual, concerning for possible delirium. Advised ER evaluation . Her [id number] EMORY FOSTER LPN [address] [address] 03/23/2024 11:25:55 03/23/2024 11:44:16 Hypokalemia 27957384 E87.6 [id number] AYSHA BARILLAS MD [address] [address] 03/27/2024 13:41:08 03/27/2024 14:39:35 Esophageal varices without bleeding 95736906 I85.00 Neuropathy due to type 2 diabetes mellitus 7984241315 05625 E11.40 Mild inter mittent asthma 628585462 J45.20 History of urinary tract infection 8047843733 107 Z87.440 Minimal co gnitive impairment 904749755 R41.89 has f/u for cognitive scg with [facility] scheduled. Encouraged use of lists. Chronic diarrhea 3583922 09 K52.9 [id number] ABDIRAHMAN MURRY RN [facility] [address] [place] [address] 04/16/2024 13:27:44 04/16/2024 14:20:03 Chronic cough 80055052 R05.3 She was unaware of diagnosis of asthma which is in chart but has used albuterol with some improvemen t in dyspnea and cough. Advised screening spirometry to evaluate for underlying etiology of her respirator y symptoms and any evidence of chronic lung disease. Dysuria 08999728 R30.0 u/a +, will send for culture, start empiric Abx with cephalexin (sulfa allergy). Will also try to track down urine culture from [facility] in March for which she was treated with cefdinir. Dry lips 365786748 K13.0 Advised conservati ve management . 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 monitor for progressio n. Type 2 abbi betes mellitus without complication 363952905 E11.9 A1c somewhat elevated late February and likely to rise further off metformin but advised continued hold of this medication given that it seemed to worsen her diarrhea. Next A1c due late May. Loose stool 944902731 R1 9.5 Improved slightly since we held metformin 3 weeks ago. Continue current management with addition of a fiber supplement . Encopresis 002599780 R15 .1 Unusual that this has appeared in the setting of improvemen t in diarrhea, advised fiber supplement to add bulk to stools, encouraged adequate fluid intake as well. Could consider referral for pelvic floor therapy if this continues. Diastolic heart failure 672088190 I50.30 She has held torsemide since [facility] in mid March, other than chronic cough no evidence of worsening CHF. Will continue to hold but advised daily weights and monitoring for worsening dyspnea or edema. [id number] EMORY FOSTER LPN [facility] [address] [place] [address] 04/20/2024 14:02:08 04/20/2024 14:42:53 Diarrhea 83834340 R19.7 Health Concerns Section Related Observation LastModified by Organization Lux torrez LastModified Time None Recorded Concern Status LastModified by Organization Details LastModified Time None Recorded Advance Directives Directive None Recorded Payers Encounter Date Sequence Insurance Name Policy Number Policy Lucas Covered Member ID Lucas Member ID Guarantor Name 03/17/2024 1 [place]ANT[place] - PPO) [id number] Milka Corbett [id number] Milka Corbett 03/23/2024 1 [place]) [id number] Milka Corbett [id number] Milka Corbett 03/27/2024 1 [place] - [place]) [id number] Milka Corbett [id number] Milka Corbett 04/16/2024 1 [place] - [place]) [id number] Milka Corbett [id number] Milka Corbett 04/20/2024 1 [place] - [place]) [id number] Milka Corbett [id number] Milka Corbett Notes Date Note Type Note Provider Name and Address Organization Details Recorded Time 03/17/2024 text/html CC: Persistent c ough, fever-like symptoms, and vaginal discomfort The patient [...] cannot recall the name of the cream. AYSHA BARILLAS MD [address], [place], [address], [facility]. 03/17/2024 15:27:17 03/27/2024 text/html CC: f/u hospitalization for UTI [...] that caused shaking. She was admitted to [facility] for two nights. AYSHA BARILLAS MD [address], [place], [address], [facility]. 03/27/2024 15:31:44 04/16/2024 text/html CC: f/u memory impairment, CHF, type 2 diabetes, chronic diarrhea The patient, an 83-year-old female, presents for evaluation of memory impairment and follow-up on congestive heart failure (CHF), type 2 diabetes, and chronic diarrhea. She reports a persistent cough and dyspnea, particularly at night. The patient used her albuterol inhaler three to four times last night due to orthopnea, requiring her to sleep in an upright position until 4:30 AM. Regarding chronic diarrhea, the patient reports improvement since discontinuing metformin 2-3 weeks ago as previously advised. However, she now experiences fecal incontinence with soft stools occurring a couple of times daily for the past month to month and a half. She has been using pads for protection and took Imodium this morning to manage symptoms. The patient also complains of excessive salivation with occasional drooling, oral soreness, and peeling lips. She reports dysuria, raising concern for a possible UTI. Additionally, she mentions recurrent eye issues, which she attributes to possible sun damage. Medical history includes CHF, type 2 diabetes, chronic diarrhea, mild cognitive impairment, and asthma. Current medications include Victoza 1.2 mg and albuterol inhaler, with metformin currently on hold. The patient also uses Imodium and Carmex for her lips. The patient has a 10th-grade education. Review of systems reveals respiratory issues including coughing and trouble breathing at night, gastrointestinal symptoms of loose and soft stools with leakage, oral symptoms of excessive saliva and soreness, urinary pain, and recurring eye issues possibly related to sun damage. ABDIRAHMAN MURRY RN [facility], [place] [facility]. 04/16/2024 17:07:23 OBGyn Episode No OBEpisode recorded.
--- OUTSIDE RECORDS SUMMARY | 2024-04-20 15:50 | XMS_ITS | Encounter Summary ---
Author Organization [facility] [place] [address] Care Team Providers Care Pipe Puller Name Role Phone Aysha Johnson MD Primary Care Provider [phone] Encounter Details Date Type Department Care Team [...] 04/28/2024 11:00 AM EST [place] [address] Molly Cui APRN [facility] [place] [address] 04/28/2024 2:00 PM EST Office [place] [phone] Molly Cui APRN [facility] [place] [address] documented as of this encounter Visit Diagnoses Not on filedocumented in this encounter Care Teams Pipe Puller Relationship Specialty Start Date End Date Aysha Johnson MD [address] [place] [address] PCP - General Family Medicine 12/12/23 documented as of this encounter
--- OUTSIDE RECORDS SUMMARY | 2024-04-20 15:50 | XMS_ITS | Encounter Summary ---
Author Organization [facility] Address [facility] [place] [address] Care Team Providers Care Steam Box Tender Name Role Phone Aysha Johnson MD Primary Care Provider [phone] Reason for Referral * Consultation (Routine) - Authorized Specialty Diagnoses / Procedures Referred By Jose bermudez Referred To Contact Gastroenterology Diagnoses NAFLD (nonalcoholic fatty liver disease) chest pain dueto esopageal disease.NACL Yonathan Gibson MD [facility] [place] [address] Molly Cui, AUDITOR [address] [facility] [place] [address] Referral ID Status Reason Start Date Expiration Date Visits Requested Visits Authorized [id number] Authorized Consult, Test & Treat 12/27/2023 12/26/2024 1 1 Encounter Details Date Type Department Care Team (Late st Contact Info) Description 12/27/2023 11:00 AM EDT Office Visit Cardiology at [address] [address] Yonathan Gibson MD [facility] [place] [address] NAFLD (nonalcoholic fatty liver disease) Social History [...] included. Came in for follow-up with history [facility] [place] [address] CARDIOLOGY OUTPATIENT PROGRESS NOTE PRIMARY CARE PROVIDER: Aysha Johnson MD REFERRING PROVIDER: Aysha Johnson PROBLEM LIST: Patient Active Problem List Diagnosis Hepatic cirrhosis Added automatically from request for surgery [id number] NAFLD (nonalcoholic fatty liver disease) Mixed incontinence Bladder cancer S/P hysterectomy Vaginal lesion MEDICATIONS: Current Outpatient Medications Medication Sig Dispense Refill nitroGLYcerin (Nitrostat) 0.[address] 1 tablet under the tongue every 5 minutes as needed for Chest pain. 25 tablet 12 isosorbide mononitrate CR (Imdur) 30 mg ER 24 hr tablet Take 30 mg by mouth 2 times daily. rxayvwkizt-hzedxva-dkqxcnfo (Fiorinal) 50-325-40 mg tablet Take 1 tablet [...] as directed. fluticasone propionate (FLONASE) 50 mcg/actuation [place], Suspension 1 spray daily. pramipexole (MIRAPEX) 0.125 [...] on file Social History Narrative Lives in [place], [place] with her of 10 years. She [...] Abdomen: Nondistended. Soft. Nontender. Extremities: No edema. VEGETABLE LOADER: Normal mentation. Psych: Appropriate affect. Labs: Lab [...] 04/28/2024 11:00 AM [place] [address] Molly Cui, [facility] [place] [address] 04/28/2024 2:00 PM EST Office [place] [address] Molly Cui [facility] [place] [address] Scheduled Referrals Name Type Priority Associated Diagnoses Order Schedule Referral to Gastroenterology Outpatient Referral Routine NAFLD (nonalcoholic fatty liver disease) Ordered: 12/27/2023 documented as of this encounter Visit Diagnoses Diagnosis NAFLD (nonalcoholic fatty liver disease) Other chronic nonalcoholic liver disease documented in this encounter Care Teams Steam Box Tender Relationship Specialty Start Date End Date Aysha Johnson MD [address] [place] [address] PCP - General Family Medicine 12/12/23 documented as of this encounter
--- OUTSIDE RECORDS SUMMARY | 2024-04-20 15:50 | XMS_ITS | Continuity of Care Document ---
Author Organization [place] - [facility] Address [address] [place] [address] Care Team Providers Care Guinea Pig Breeder Name Role Phone CRYSTAL MCCORMACK Call Worker Person LANI WALLIS Prosthodontist/Owner Assessment No assessment recorded. Plan of Treatment Reminders Order Date Submit Date Provider Last Modified By Organization Details Last Modified Time Details Appointments Nurse Visit 20 2024 02:45P M Buhl Nursing Staff Not available Not available Not available Lab None recorded. Referral None recorded. Procedures None recorded. Surgeries None recorded. Imaging None recorded. Medication Orders doxycycli ne monohydra te 100 mg capsule 2023 [address], [place], [address], 03/04/2024 14:19:40 Patient TargetsNo targets recorded. Patient Instructions Encounter Date Encounter Id Patient Instructions Last Modified By Organization Details Last Modified Time 02/05/2024 [id number] Try Mucinex 1 ta b twice daily to help thin secretions, and take doxycycline 100mg twice a day x 1 week to help cover possible walking pneumonia. Call early next week if you're not feeling significantly better. (sooner if you're feeling worse!) [email or web address] Not available 02/05/2024 15:23:01 Reason for Referral None Reported. Results Created Date Observation Date Name Description Value Unit Range Abnormal Flag Note LastModifiedBy Organization Detail LastModifiedTime 03/17/20 24 03/17/2024 xr chest 2V Pa and later al [facility] RADIOL OGY [place] [id number] RADIOL OGY TRANSC RIPTIO N REPORT _ Patien t Name: CRISTEL SEGUNDO MRN: Sex: : Age: [id number] F [id number] Accoun t: Access ion: Admit: StayTy pe: [id number] 2023 E Ordere d: Order ID: Submit nate: David Klein er: 2023 16:03 [id number] Zoey MOSLEY nate: Techno logist : Result [...] of pneumo shirlene. Thank you for zbigniew fairchild partic ipate in the care of this nicole t. If you are a health care provid er and have any questi ons regard ing this report , please contac t the number below. For nicole ts who have questi ons please contac t the health [facility] that reques nate your imagin g first. Electr onical ly signed by: Kimberly Keith MD [facility] sohan Delontebrie ji ([phone]), at 2023 4:28 PM INTERFACE [facility] (Lab) [address] [place] [address], [address], 03/17/2024 16:35:27 03/17/20 24 03/17/2024 EKG order yony ng 12 lead [facility] [id number] EKG TRANSC RIPROYCE Ji REPORT _ Accoun t: Access ion: Admit: StayTy pe: [id number] 210 2023 E/R Observ ation: Order ID: Submit nate: David aly Provid er: 2023 16:34 [id number] KIN BOYLE _ [place] [id number] [facility] Test Date: 2023-04 Pat Name: KAYLEE Khan Depart ment: Brice bermudez ID: [id number] Room: 3B Gender : Yue Reardon perri: jr : 1941-0 06-22 Reques nate By: FRANC Yanes Order Number : [id number] Kelby mcdaniels MD: Jung Corona Measur ements Interv als Brooks Rate: 109 P: 57 AZ: 182 QRS: -22 QRSD: 92 T: 0 QT: 328 QTc: 441 Interp retive Statem ents Sinus tachyc ardia Poor R wave progre ssion, likely due to lead placem ent Compar ed to ECG 2023 09:24: 01 Sinus rhythm no longer presen t Electr onical ly Signed On 2023 19:33: 53 EST by Jung Corona [facility] (Lab) [address] [place] [address], [address], 03/17/2024 19:35:41 Result Notes None recorded. Problems Name Problem SNOMED Code Status Onset Date Resolution Date Notes Provider Name and Address Organization Details Recorded Time Acute lower respirat ory tract infectio n 317965185 Completed 202303/27/[address], [place], [address] , [facility] 4 14:21:53 Acute confusio n 688031349 Completed 202303/27/[address], [place], [address] , [facility] 4 14:21:53 Mild intermit tent asthma 643836972 Active [address], [place], [address] , [facility] 4 15:28:45 Chronic cough 09612629 Active [address], [place], [address] , [facility] 5 14:11:35 Dysuria 72230810 Active 2024 Problem Code: R30.0; Problem Code Type: ICD-10; MD Livan [address], [place], [address] , [facility] 5 14:40:58 Dry lips 077996830 Active [address], [place] [address] , [facility] 5 15:15:20 Loose stool 816045639 Active [address], [address] 5 15:16:13 Encopres is 603312675 Active [address], [place] [address] , [facility] 5 15:16:22 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 296703687 Active [address], [address] 5 15:16:36 Essentia l hyperten eugene 37513016 Completed 201305/13/2023 Problem Code: I10; Problem Code Type: ICD-10; MD Livan RODRIGUEZ Dr, [address] 4 13:45:04 Migraine 46196697 Active 2013 Gail rodriguez, [facility] 4 12:45:27 History of disorder of digestiv e system 886404714 Completed 201305/13/2023 Problem Code: Z87.19; Problem Code Type: ICD-10; MD Livan RODRIGUEZ Dr, [address] 4 13:45:04 Restless legs 94114936 Active 2013 Gail rodriguez, [facility] 4 12:48:18 Disorder of nervous system due to type 2 diabetes mellitus 038589700 Completed 201305/13/2023 04/27/19 20 - Comments only [...] Code Type: ICD-10; MD Livan R[address], [place], [address] , [facility] 4 13:45:04 Allergic rhinitis 67286958 Completed 201305/13/2023 Problem Code: J30.9; Problem Code Type: ICD-10; MD Livan [address], [place], [address] , [facility] 4 13:45:04 Mixed hyperlip idemia 458779791 Active 2013 [facility] 4 12:45:48 Neuropat hy due to type 2 diabetes mellitus 63771546836 9106 Active 2013 [facility] 4 12:46:16 Intolera nce to lactose 486489822 Completed 201305/13/2023 Problem Code: E73.9; Problem Code Type: ICD-10; MD Livan [address], [place], [address] , [facility] 4 13:45:04 Heart murmur 52790397 Active [address], [place], [address] , [facility] 4 06:52:52 History of malignan t neoplasm of bladder 695144549 Active 2013, recurren ce 2008, Dr. Zahm, chemo instilla tion, straight caths [facility] 4 12:43:10 History of nutritio nal disorder 269580472 Completed 201405/13/2023 RUPAL BARILLAS MD [address], [place], [address] , [facility] 4 13:45:04 Irritabl e bowel syndrome 25319811 Active 2014 [facility] 4 12:45:06 Eczema 62176291 Active 2014 [facility] 4 12:38:10 Hernia of abdomina l cavity 87321939 Active 2015 [facility] 4 12:41:15 Cirrhosi s of liver 51635147 Completed 201505/13/2023 09/22/19 20 - Comments only - Nat Bryant M.D. - Has gained some weight, and possibly has ascites, although I have never examined her before. Follow-u p as planned tomorrow for imaging, labs, and speciali [facility] ent at [facility]. Problem Code: K74.69; Problem Code Type: ICD-10; MD Livan R[address], [place], [address] , [facility] 4 13:45:04 History of urinary tract infectio n 20633668498 07 Completed 201505/13/2023 08/03/19 16 - Comments [...] Code Type: ICD-10; MD Livan RODRIGUEZ Dr, [address] 4 13:45:04 Screenin g for malignan t neoplasm of breast Completed 201505/13/2023 Problem Code: Z12.39; Problem Code Type: ICD-10; MD Livan RODRIGUEZ Dr, [address] 4 13:45:04 Candidia sis of vagina 73401099 Completed 201505/13/2023 Problem Code: B37.3; Problem Code Type: ICD-10; MD Livan RODRIGUEZ Dr, [address] 4 13:45:04 Portal hyperten eugene 30804606 Active 2015 no ascites or encephal opathy, EGD 2015 (gastric ulcer) Gail rodriguez, [facility] 4 12:47:45 Genitour inary symptoms 675255667 Completed 201504/17/2016 Problem Code: R39.89; Problem Code Type: ICD-10; Not Available [facility] 3 04:10:10 Screenin g for malignan t neoplasm of colon Completed 201605/13/2023 Problem Code: Z12.11; Problem Code Type: ICD-10; MD Livan RODRIGUEZ Dr, [address] 4 13:45:04 Pneumoni a 335001082 Completed 201602/15/2017 02/12/20 17 - Improved - 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 TRANSACTION COORDINATOR - s/p tx with azithrom ycin pt signific antly improved RTC if sx worsen/p ersist Problem Code: J18.9; Problem Code Type: ICD-10; MD Livan RODRIGUEZ Dr, [facility] [address] [place] [address] 4 14:21:53 Orthosta tic hypotens ion 21553223 Active 2017 [facility] 4 12:46:41 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 04713449 Active 2018 small endoscop y 2019 [facility] repeat one year [facility] 4 12:39:42 Hepatic failure 85768583 Completed 201805/13/2023 Problem Code: K72.90; Problem Code Type: ICD-10; MD Livan RODRIGUEZ Dr, [address] 4 13:45:04 Acute upper respirat ory infectio n 15083617 Completed 201811/08/2018 Problem Code: J06.9; Problem Code Type: ICD-10; MD Livan RODRIGUEZ Dr, [address] 4 13:45:04 Proteinu vinod 76687977 Completed 201805/13/2023 Problem Code: R80.9; Problem Code Type: ICD-10; MD Livan RODRIGUEZ Dr, [address] 4 13:45:04 Hyperlip idemia 65064306 Active 2018 Gail Lavern [facility] 4 12:44:49 Gastroes ophageal reflux disease without esophagi tis 818727327 Active 2019 [facility] 4 12:39:54 Urinary tract infectio us disease 25111311 Completed 201909/29/2019 09/22/19 - Comments only - Nat Bryant M.D. [...] N39.0; Problem Code Type: ICD-10; Not Available [facility] 3 04:10:12 Nervous system and sense organ diseases 943407771 Completed 202005/13/[address], [facility] [address] , [facility] 4 13:45:04 Fall on or from stairs or steps Completed 202005/27/2020 Problem Code: W10.9xxA ; Problem Code Type: ICD-10; Not Available [facility] 3 04:10:12 Knee joint effusion 264676107 Completed 202006/06/2020 Problem Code: M25.469; Problem Code Type: ICD-10; Not Available [facility] 3 04:10:13 Low back pain 026936094 Completed 202006/20/2020 Problem Code: M54.5; Problem Code Type: ICD-10; AMADEO GLEASON, ONLINE SERVICES MANAGER [address], [place], [address] , [facility] 4 14:31:55 Dysuria 11905163 Completed 202009/03/2020 Problem Code: R30.0; Problem Code Type: ICD-10; MD Livan RODR[address]UEZ Dr, [facility] [address] , [facility] 5 14:40:58 Psychoph ysiologi c insomnia 310353023 Active 2020 Insomnia , chronic Gail Lavern null, [facility] 4 12:48:07 Dizzines s and giddines s 806047373 Completed 202010/31/2020 Problem Code: R42; Problem Code Type: ICD-10; Not Available [facility] 3 04:10:14 Atrophic vaginiti s 09968805 Active 2020 [facility] 4 12:37:19 Urinary tract infectio us disease 79730352 Completed 202003/03/2021 Problem Code: N39.0; Problem Code Type: ICD-10; Not Available [facility] 04:10:14 Disorder of hematopo ietic structur e 565910891 Completed 202105/13/2023 Problem Code: D75.89; Problem Code Type: ICD-10; RUPAL BARILLAS MD [address], [address] 4 13:45:04 Tension- type headache 394891746 Completed 202105/13/2023 Problem Code: G44.209; Problem Code Type: ICD-10; RUPAL BARILLAS MD [address], [address] 4 13:45:04 Acute conjunct ivitis of left eye 57564610551 9105 Completed 202112/19/2021 12/13/19 22 - Comments only - Nat Bryant M.D. - Likely bacteria l. Rx sent for e-mycin ointment . Call for reevalua tion if worsenin g, or no better w/in 48 hours. Problem Code: H10.32; Problem Code Type: ICD-10; Not Available [facility] 3 04:10:15 Cerebrov ascular disease 31624270 Active 2021 Gail Lavern rodriguez, [facility] 4 12:37:49 Urinary tract infectio us disease 57325308 Completed 202208/28/2022 Problem Code: N39.0; Problem Code Type: ICD-10; Not Available [facility] 3 04:10:15 Pneumoni a 659497243 Completed 202211/08/2022 10/30/19 23 - Improved - [...] Code Type: ICD-10; MD Livan R[address]Z [address], [place], [address] , [facility] 4 14:21:53 Edema 996673725 Active 2022 Peripher al edema [facility] 4 12:38:42 Castillo' s esophagu s 233579811 Active 2022 [facility] 4 12:37:33 Candidia sis of skin 51944275 Completed 201810/23/2022 Problem Code: B37.2; Problem Code Type: ICD-10; Not Available [facility] 3 04:10:16 Acute atopic conjunct ivitis 41613445 Completed 201804/21/2019 Problem Code: H10.10; Problem Code Type: ICD-10; Not Available [facility] 3 04:10:16 Constipa tion 07190768 Completed 201301/02/2023 Problem Code: K59.00; Problem Code Type: ICD-10; Not Available [facility] 3 04:10:16 Cough 23349516 Completed 202201/02/2023 Problem Code: R05.8; Problem Code Type: ICD-10; MD Livan R[address], [place], [address] , [facility] 4 14:21:53 Hyperten sive disorder 69135303 Completed 201301/02/2023 Not Available [facility] 3 04:10:17 Neoplasm of urinary bladder 999358752 Completed 201301/02/2023 Problem Code: D49.4; Problem Code Type: ICD-10; Not Available [facility] 3 04:10:17 Enthesop athy 00107181 Completed 201812/26/2020 Problem Code: M77.9; Problem Code Type: ICD-10; Not Available [facility] 3 04:10:17 Hypercal cemia 61210833 Completed 201401/02/2023 Not Available [facility] 3 04:10:18 Lung field abnormal 321274220 Completed 201607/29/2017 Problem Code: R91.8; Problem Code Type: ICD-10; Not Available [facility] 3 04:10:18 Insomnia 511249918 Completed 201906/06/2021 Problem Code: F51.09; Problem Code Type: ICD-10; Not Available [facility] 3 04:10:18 Disorder of lung 09977973 Completed 201710/23/2022 Problem Code: J98.4; Problem Code Type: ICD-10; Not Available [facility] 3 04:10:18 Type 2 diabetes mellitus without complica tion 551536164 Completed 201301/02/2023 Problem Code: E11.9; Problem Code Type: ICD-10; IN[address], [place], [address] , [facility]. 4 15:17:00 Pain of left shoulder joint 90547057209 666552 Completed 201406/06/2021 Problem Code: M25.512; Problem Code Type: ICD-10; Not Available [facility] 3 04:10:19 Screenin g for osteopor osis Completed 201602/11/2017 Problem Code: Z13.820; Problem Code Type: ICD-10; Not Available [facility] 3 04:10:19 Inflamed seborrhe ic keratosi s 237351579 Completed 201910/23/2022 Problem Code: L82.0; Problem Code Type: ICD-10; Not Available [facility] 3 04:10:20 Disorder of brain 04200603 Completed 202103/05/2022 Problem Code: G93.40; Problem Code Type: ICD-10; Not Available [facility] 3 04:10:20 Other idiopath ic peripher al neuropat hy NOS Completed 201301/02/2023 Not Available [facility] 3 04:10:20 Obesity 205651297 Completed 201301/02/2023 Not Available [facility] 3 04:10:20 Fatigue 83735798 Completed 201810/27/2018 Problem Code: R53.83; Problem Code Type: ICD-10; Not Available [facility] 3 04:10:21 Genitour inary symptoms 421636943 Completed 201904/04/2020 Problem Code: R39.9; Problem Code Type: ICD-10; Not Available [facility] 3 04:10:21 Benign paroxysm al position al vertigo 772916102 Completed 202001/02/2023 Problem Code: H81.10; Problem Code Type: ICD-10; Not Available [facility] 3 04:10:22 Disorder of skin and/or subcutan eous tissue 08403869 Completed 201904/04/2020 Problem Code: L98.9; Problem Code Type: ICD-10; Not Available [facility] 3 04:10:22 Osteophy te of bone 14829119590 9100 Completed 201906/28/2020 Problem Code: M25.776; Problem Code Type: ICD-10; Not Available [facility] 3 04:10:22 Gastric ulcer 061981400 Completed 201501/02/2023 Problem Code: K25.9; Problem Code Type: ICD-10; Not Available [facility] 3 04:10:22 Right side sciatica 92861627688 9101 Completed 201804/21/2019 Problem Code: M54.31; Problem Code Type: ICD-10; Not Available [facility] 3 04:10:23 Candidia sis 09308278 Completed 201308/22/2015 Problem Code: B37.9; Problem Code Type: ICD-10; Not Available [facility] 3 04:10:23 Steatosi s of liver 755555994 Completed 201302/10/2016 Problem Code: K76.0; Problem Code Type: ICD-10; Not Available [facility] 3 04:10:23 Cough 88776092 Completed 201912/26/2020 Problem Code: R05; Problem Code Type: ICD-10; RUPAL BARILLAS MD [address], [place], [address] [facility] 4 14:21:53 Xerostom ia 73121682 Completed 202006/06/2021 Problem Code: R68.2; Problem Code Type: ICD-10; [facility] 4 12:49:03 Candidal vulvovag initis 80490870 Completed 201301/02/2023 Problem Code: 112.1; Problem Code Type: ICD-9; Not Available [facility] 3 04:10:25 Intestin al disaccha ridase deficien cy 70483480 Completed 201301/02/2023 Problem Code: 271.3; Problem Code Type: ICD-9; Not Available [facility] 3 04:10:25 Acute bronchit is 05833053 Completed 201912/26/2020 Problem Code: J20.9; Problem Code Type: ICD-10; Not Available [facility] 3 04:10:26 Peripher al nerve disease 877806881 Completed 201301/02/2023 Not Available [facility] 3 04:10:26 Acute upper respirat ory infectio n 63344699 Completed 202205/13/2023 Problem Code: J06.9; Problem Code Type: ICD-10; MD Livan RODRIGUEZ Dr, [facility] [address] , [facility] 4 13:45:04 Diastoli c heart failure 630297727 Active 2022 echo 03/[address], [place] [address] , [facility] 3 11:17:46 Chest pain 13515305 Completed 202205/13/2023 Problem Code: R07.89; Problem Code Type: ICD-10; MD Livan R[address] Dr, [place] [address] , [facility] 4 13:45:03 Aortic stenosis , non-rheu matic 881099322 Active 2022 mild 03/2023 echo MD [address]ivan [address], [place] [address] , [facility] 4 06:52:21 Senile hyperker atosis 832507956 Completed 202205/13/2023 Problem Code: L82.1; Problem Code Type: ICD-10; MD Livan R[address] Dr, [place] [address] , [facility] 4 13:45:03 Melanocy tic nevus 710849706 Completed 202205/13/2023 Problem Code: D22.9; Problem Code Type: ICD-10; MD Livan R[address] Dr, [facility] [address] , [facility] 4 13:45:04 Incoordi nation 726743731 Completed 202205/13/2023 01/31/20 23 - Comments only - Rupal Barillas MD - neuro exam not c/w CVA; will eval further at next visit. Problem Code: R27.9; Problem Code Type: ICD-10; RUPAL BARILLAS MD [address], [place], [address] , [facility] 13:45:03 Dyspnea 120361741 Completed 202205/13/2023 Problem Code: R06.09; Problem Code Type: ICD-10; MD [address]ivan [address], [place], [address] , [facility] 13:45:03 Chronic diarrhea 318219116 Active 2023 [facility] 12:37:57 Drug-ind uced xerostom ia 181386759 Active [address], [place], [address] , [facility] 13:38:38 Microalb uminuric diabetic nephropa thy 900815225 Active 2023 [facility] 12:45:11 Dyspnea on exertion 87865324 Active 2023 [facility] 12:37:57 Angular cheiliti s 323460729 Active 2023 [facility] 12:36:56 Xerostom ia 02234910 Active 2023 [facility] 12:49:03 History of adenomat ous polyp of colon 382245856 Active 2020 [facility] 12:43:44 Sialoade nitis 81096667 Completed 202308/09/[address], [facility] [address] , [facility] 4 16:48:36 Low back pain 009892931 Active 2023 Problem Code: M54.5; Problem Code Type: ICD-10; AMADEO VICTORINO, ONLINE SERVICES MANAGER [address], [facility] [address] , [facility] 4 14:31:55 Chest pain on exertion 61621966 Active [address], [facility] [address] [place] [address] 4 12:24:41 Always hungry 230661379 Active [address], [facility] [address] [place] [address] 4 16:38:32 Altered bowel function 31083115 Active [address], [facility] [address] [place] [address] 4 16:38:44 Atypical chest pain 098120868 Active 2023 DORIS JONES MA [facility], [facility] 4 07:31:04 Acquired thromboc ytopenia 92439906 Active [address], [facility] [address] [place] [address] 4 09:56:08 Actinic keratosi s 527535983 Active [address], [facility] [address] [place] [address] 4 13:34:57 Nodule of lung 947956984 Active 2023 probable lipoma by PET. (benign) MD Livan R[address] Dr, [place] [address] , [facility] 4 06:49:28 Minimal cognitiv e impairme nt 745433662 Active [address], [address] 4 15:05:52 New daily persiste nt headache 44171732581 9105 Active [address], [address] 4 16:29:33 Lichen sclerosu s of vulva 196215250 Active [address], [address] 4 15:22:25 Milia 393889577 Active [address], [address] 4 15:51:39 Obstruct keshia sleep apnea syndrome 88541060 Active 2023 DORIS JONES MA null, [facility] 4 09:39:29 Atherosc lerosis Active 2023 DORIS JONES MA null, [facility] 4 09:39:44 Cirrhosi s - non-alco holic 615316344 Active 2023 with esoph varices and low PLT but no ascites, jaundice or sx. MD Livan RODR[address]UEZ Dr, [place] [address] , [facility] 4 06:56:02 Vulvitis 30530770 Active [address], [address] 4 13:20:01 Thromboc ytopenic disorder 411768848 Active [address], [place], [address] , [facility] 4 13:23:28 Decompen sated cirrhosi s of liver 910135698 Active [address], [address] 4 14:23:47 Type 2 diabetes mellitus without complica tion 651255115 Active 2023 Problem Code: E11.9; Problem Code Type: ICD-10; INDIRA [address] Dr, [place], [place], [address] [place] [address] , [facility] 4 15:17:00 Coronary arterios clerosis 38398620 Active 2023 DORIS JONES MA null, [facility] 4 12:31:32 Hyperpig mentatio n of skin 22967798 Active [address], [address] 15:19:42 Pneumoni a 704396900 Completed 202303/27/2024 10/30/19 23 - Improved - [...] Code Type: ICD-10; MD [address]ivan [address], [place], [address] , [facility] 4 14:21:53 Cough 67913683 Completed 202303/27/2024 Problem Code: R05.8; Problem Code Type: ICD-10; MD Livan [address], [place], [address] , [facility] 14:21:53 Notes:Some problems listed i n Document: #[id number] could not be added to this patient's chart. Please review this document and add these problems to the patient's chart manually as needed. Problem Notes None recorded. Procedures Surgical History Date Name Laterality Status Provider Name and Address Organization Details Recorded Time 4 Cryosurgery Multiple Actinic Keratoses completed MD Livan RODRIGUEZ Dr, [facility] [address], [facility] 03/06/2024 11:24:31 Cryosurgery Warts/Skin Tags completed MD Livan RODRIGUEZ Dr, [facility] [id number], [facility] 10/18/2023 15:47:48 4 Cryosurgery Warts/Skin Tags completed MD Livan RODRIGUEZ Dr, [facility] [address], [facility] 10/07/2023 13:34:27 Imaging Results None recorded. Procedure Notes None recorded. Medical Equipment None Reported. Allergies Allergen ID Allergen Name Allergen Category Reaction Reaction Severity Criticality Documentation Date Start Date Code Code System Note Provider Name and Address Organization Details Recorded Time 65667 erythromy laura medicatio n other moderate Not available 02/15/20232013 4053 RxNorm stoma ch pain Gail Lavern null, [facility] 12:53:11 21636 Bactrim medicatio n itching moderate Not available 08/01/20232013 89123 9 [facility] 12:51:33 61349 codeine medicatio n itching moderate Not available 08/01/20232013 2670 RxNorm itchy , [facility] 12:52:07 76791 Demerol medicatio n other moderate Not available 08/01/20232013 84257 1 RxNorm can' t [facility] 4 12:52:55 07011 simvastat in medicatio n nausea moderate Not available 08/01/20232013 43899 RxNorm (ALLS TATIN S) Gail Puckett [facility] 4 12:53:40 15022 Trulicity medicatio n vomiting moderate low 09/25/2023 48927 96 RxNorm RUPAL BARILLAS MD [address], [place], [address] [place] [address] 4 12:57:22 Medications Name Sig Start Date [...] a day by oral route. 2023 active [facility] GI Not Available Not Available Not Avai [...] once a day 12/[address] Wallis, [facility], after August 2022 OV Not Available Not Available Not Available gabapenti n 800 mg tablet Take 1 tablet by mouth three times a day 2019 active Not Available Not Available Not [facility] OneTouch Ultra Test strips USE 1 STRIP [...] active Not Available Not Available Not [facility] nystatin 100,000 unit/gram topical cream APPLY TOPICALL [...] Relief 50 mcg/actua tion nasal spray,moraima pension [place] 1 spray into both nostrils once a [...] Vitals Date Recorded Body height Body temperature Body mass index (BMI) Body weight Oxygen saturation Oxygen saturation in Arterial blood by Pulse oximetry Heart rate Systolic blood pressure Diastolic blood pressure Provider Name and Address Organization Details Last Updated DateTime 4 154.94 cm 97.3 [degF] 25.9 kg/m2 65455.1 5 g 97 % 97 % 97 /min 118 mm[Hg] 56 mm[Hg] JUDITH PEÑA RN [facility] 4 15:05:32 Social History Question Answer Notes LastModified by Organizat ion Details LastModified Time Tobacco Smoking Status Never Smoker MARY PRETTY MA null, [place] [facility] 03/18/2023 15:57:23 Would You Say That, In General, Your Health Is Good [email or web address] Information not available 08/09/2023 How Often Does Anyone, Including Family, Physically Hurt You? Never [email or web address] Information not available 08/09/2023 How Often Does Anyone, Including Family, Insult Or Talk Down To You? Rarely [email or web address] Information no t available 08/09/2023 How Often Does Anyone, Including Family, Threaten You With Harm? Never Information not available 08/09/2023 How Often Does Anyone, Including Family, Scream Or Curse At You? Never [email or web address] Information not available 08/09/2023 Within The Past 12 Months, You Worried That Your Food Would Run Out Before You Got Money To Buy More. Never True [email or web address] Information n ot available 08/09/2023 Within The Past 12 Months, The Food You Bought Just Didn't Last And You Didn't Have Money To Get More. Never True [email or web address] Information not available 08/09/2023 How Hard Is It For You To Pay For The Very Basics Like Food, Housing, Medical Care, And Heating? Would You Say It Is: Somewhat Hard [email or web address] Information not available 08/09/2023 In The Past 12 Months, Has Lack Of Reliable Transportation Kept You From Medical Appointments, Meetings, Work Or From Getting Things Needed For Daily Living? No [email or web address] Information not available 08/09/2023 What Is Your Housing Situation Today? I Have Housing. [email or web address] Information not available 08/09/2023 How Often In The Past Year Have You Used Marijuana (including Smoking, Vaping, Dabbing, Or Edibles)? Never [email or web address] Information not available 08/09/2023 How Often In The Past Year Have You Used Prescription Medications That Were Not Prescribed To You? Never [email or web address] Information not available 08/09/2023 How Often In The Past Year Have You Taken Your Own Prescription Medication More Than The Way It Was Prescribed Or For Different Reasons Than Its Intended Purpose? Never [email or web address] Information not available 08/09/2023 How Often In The Past Year Have You Used Other Drugs (for Example, Heroin, Cocaine, Meth, Salvia, Inhalants)? Never [email or web address] Information not available 08/09/2023 Have You Ever Used IV Drugs? No [email or web address] Information not available 08/09/2023 Date Of Most Recent SBINS 08/09/2023 Information not available 08/09/2023 What Was The Date Of Your Most Recent Tobacco Screening? 10/18/2023 [email or web address] Information n ot available 10/18/2023 Has Tobacco Cessation Counseling Been Provided? No [email or web address] Information not available 10/25/2023 Do You Or Have You Ever Used Any Other Forms Of Tobacco Or Nicotine? No [email or web address] Information not available 03/18/2023 Sex: Female Functional Status None recorded. Mental Status None recorded. Family History Relationship Description Onset Age of this Age Resolved Age Notes LastModified by Organization Details LastModified Time Mother Family history of acute medical disorder [email or web address] Not available 2022 03:54:47 Notes:*Problem: Mother: d. 6 7 , cirrhosis, non ETOH Father: d. [place], acute hepatitis Sisters: x1, cirrhosis, non ETOH, [...] high-dose, trivalent, PF 4 completed GIOVANNA ASIF [facility] 01/09/2024 16:25:43 COVID-19, mRNA, LNP-S, PF, mayito-sucrose, 30 mcg/0.3 mL 4 completed GIOVANNA ASIF [facility] 01/09/2024 16:25:43 Td (adult), 2 Lf tetanus toxoid, preservative free, adsorbed 7 completed Not Available [facility] 02/15/2023 05:29:32 Hep A-Hep B 7 completed Not Available [facility] 02/15/2023 05:29:32 Hep A-Hep B 11/18/201 6 completed Not Available [facility] 02/15/2023 05:29:32 Tdap 7 completed Not Available [facility] 02/15/2023 05:29:32 Pneumococcal conjugate PCV 13 7 completed Not Available [facility] 02/15/2023 05:29:32 Td(adult) unspecified formulation 6 completed Not Available [facility] 02/15/2023 05:29:32 Influenza, split virus, trivalent, preservative 6 completed Not Available [facility] 02/15/2023 05:29:32 Influenza, split virus, trivalent, preservative 5 completed Not Available [facility] 02/15/2023 05:29:32 Influenza, split virus, quadrivalent, PF 2 completed Not Available [facility] 02/15/2023 05:29:33 Influenza, split virus, quadrivalent, PF 3 completed Not Available [facility] 02/15/2023 05:29:33 Influenza, split virus, quadrivalent, preservative 7 completed Not Available [facility] 02/15/2023 05:29:33 Influenza, split virus, quadrivalent, preservative 8 completed Not Available [facility] 02/15/2023 05:29:33 Influenza, high-dose, quadrivalent, PF 1 completed Not Available [facility] 02/15/2023 05:29:33 COVID-19, mRNA, LNP-S, PF, 100 mcg/0.5mL dose or 50 mcg/0.25mL dose 1 completed Not Available [facility] 02/15/2023 05:29:33 COVID-19, mRNA, LNP-S, PF, 100 mcg/0.5mL dose or 50 mcg/0.25mL dose 1 completed Not Available [facility] 02/15/2023 05:29:33 COVID-19, mRNA, LNP-S, PF, 100 mcg/0.5mL dose or 50 mcg/0.25mL dose 2 completed Not Available [facility] 02/15/2023 05:29:33 SARS-COV-2 (COVID-19) vaccine, UNSPECIFIED 1 completed Not Available [facility] 02/15/2023 05:29:34 COVID-19, mRNA, LNP-S, bivalent, PF, 30 mcg/0.3 mL dose 3 completed Not Available [facility] 02/15/2023 05:29:34 COVID-19, mRNA, LNP-S, bivalent, PF, 30 mcg/0.3 mL dose 2 completed Not Available [facility] 02/15/2023 05:29:34 pneumococcal polysaccharide PPV23 7 completed Not Available [facility] 02/15/2023 05:29:34 pneumococcal polysaccharide PPV23 5 completed Not Available [facility] 02/15/2023 05:29:34 pneumococcal polysaccharide PPV23 1 completed Not Available [facility] 02/15/2023 05:29:34 Hep B, adult 7 completed Not Available [facility] 02/15/2023 05:29:34 influenza, unspecified formulation 8 completed Not Available [facility] 02/15/2023 05:29:34 influenza, unspecified formulation 4 completed Not Available [facility] 02/15/2023 05:29:34 influenza, unspecified formulation 9 completed Not Available [facility] 02/15/2023 05:29:35 Influenza, high-dose, quadrivalent, PF 3 completed Not Available [facility] 04/19/2023 05:31:38 COVID-19, mRNA, LNP-S, PF, mayito-sucrose, 30 mcg/0.3 mL 3 completed Not Available [facility] 04/19/2023 05:31:38 Past Encounters Encounter ID Performer Location Encounter Start Date Encounter Closed Date Diagnosis/Indication Diagnosis SNOMED-CT Code Diagnosis ICD10 Code Diagnosis Note [id number] MARY PRETTY MA [address] [address] 01/09/2024 13:35:22 01/09/2024 14:34:57 Active or passive immunization 707839812 Z23 Patient/Pa rent/Guard kt answered all the COVID screening questions with a Marissa villanueva 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 continue carvedilol for variceal management . Minimal co gnitive impairment 798587425 R41.89 Pursuing bubble packing of meds to assist with management . Consider slums or other formal cognitive screening at next visit. Hyperlipidemia 77347384 E78.5 continue current statin therapy. Diastolic heart failure 669551583 I50.30 euvolemic, BP and lipids at goal. continue current management . Restless legs 25257819 G 25.81 did not address recent increase in pamiprexol e today, will do so at next visit. Neuropathy due to type 2 diabetes mellitus 1279530636 32868 E11.40 continue gabapentin . A1C at goal, recheck in 3 months. Hyperpigme ntation of skin 27509501 L81.9 reassuranc e provided. No active rash evident. Atherosclerosis 56850846 I70.90 Assessment : Patient had a normal stress test, indicating no need for a catheter procedure. - Plan:a. Discontinu e ranolazine and Imdur.b. Continue carvedilol for blood pressure and angina management .c. Monitor for any changes in chest pain or symptoms. [id number] JUDITH PEÑA RN [address] [address] 02/05/2024 14:49:21 02/05/2024 15:25:56 Cough 08708823 R05.9 OTC rapid Covid test neg. Pneumonia 504952500 J18. 9 possible, on basis of LLL rales. Patient with allergy to macrolides and sulfa, will treat with doxycyclin e particular ly given prevalence of atypical pneumonia currently. Also recommende d Mucinex to help with thinning secretions . May use albuterol as needed. Reviewed indication s for re-evaluat ion. Health Concerns Section Related Observation LastModified by Organization Detai ls LastModified Time None Recorded Concern Status LastModified by Organization Details LastModified Time None Recorded Payers Encounter Date Sequence Insurance Name Policy Number Policy Lucas Covered Member ID Lucas Member ID Guarantor Name 02/05/2024 1 [id number]/A DVANTAGE - PPO) [id number] Milka Corbett [id number] Milka Corbett Notes Date Note Type Note Provider Name and Address Organization Details Recorded Time 02/05/2024 text/html Here with 10-day history of cough productive of yellow sputum, and pain in her chest and left mid back, worse with coughing. Sleep is interrupted. Denies wheezing and has not used her albuterol inhaler. No fever or chills. No known sick contacts. JUDITH PEÑA RN [facility], [place] - [facility] 02/05/2024 18:23:09 OBGyn Episode No OBEpisode recorded.
--- OUTSIDE RECORDS SUMMARY | 2024-04-20 15:50 | XMS_ITS | Clinical Summary ---
Author Organization [facility] Address [facility] [place] [address] Care Team Providers Care Pipelaying Fitter Name Role Phone Aysha Johnson MD Primary Care Provider [phone] Allergies Active Allergy Reactions Criticality Noted Date [...] Itching. Active fluticasone propionate (FLONASE) 50 mcg/actuation [place], Suspension 1 spray daily. Act keshia pramipexole [...] type, unspecified whether angina present, unspecified whether [place] or transplanted heart Place 1 tablet under the tongue every 5 minutes as needed for Chest pain. 25 tablet 12 12/13/2023 Active ranolazine ER (Ranexa) 500 mg ER 12 hr tabletIndications: Coronary artery disease, unspecified vessel or lesion type, unspecified whether angina present, unspecified whether [place] or transplanted heart Take 1 tablet by [...] (05/19/2020): Added automatically from request for surgery [id number] NAFLD (nonalcoholic fatty liver disease) 016 Mixed incontinence 07/27/2012 Bladder cancer 07/08/2012 S/P hysterectomy 07/08/2012 Vaginal lesion 07/08/2012 Encounters Date Type Department Care Team Description 04/14/2024 [place] [address] Molly Cui APRN Gastroesophageal reflux disease without esophagitis 03/17/2024 Interpretation Only [facility] in [address] [address] Zoe Lay APRN 01/20/2024 [place] [address] Molly Cui APRN Gastroesophageal reflux [...] 04/28/2024 11:00 AM [place] [address] Kennard, Molly A, [facility] [place] [address] 04/28/2024 2:00 PM EST Office Visit Gastroenterology at [facility] [place] [address] Molly Cui, [facility] [place] [address] Health Maintenance Due Date Last Done Comments [...] AND LATERAL STAT 03/17/2024 4:20 PM EST GLASS SELECTOR CYTOLOGY FINAL REPORT Routine 07/08/2012 8:27 PM EDT from Last 3 Months or Most Recently Relevant to Health Maintenance Results * XR Chest PA & Lateral (Generic) (03/17/2024 4:20 PM EST) PT CLASS E RAD ADMITDTTM [id number] RAD PT RAD MD INFO [id number]^KEYANA^C HELSEA^L RAD EXAM DESC XCXR2^XR CHEST 2V PA AND LATERAL^RIS RAD WORKSTATION ID [id number] [facility] Anatomical Region Laterality Modality Chest [...] have questions please contact the health career professional that requested your imaging first. ? Electronically signed by: Avila Keith MD, [facility] ([phone]), at 03/17/2024 4:28 PM Narrative 03/17/2024 4:28 [...] patients who have questions please contactthe health career professional that requested your imaging first. Electronically signed by: Avila Keith MD, [facility]([phone]), at 03/17/2024 4:28 PM Zoe Yanes Keyana EQUITY RESEARCH ASSOCIATE IMG DX ORDERABLES * [employer] Maker Cytology Final Report (07/08/2012 8:27 PM EDT) [employer] Maker Cytology Final Report ? [facility] ? Provider: ?? MOE BENJAMIN, ??Pt. Name: ?? NICK MENDIETA ?LOULOU ? Acc #: ?[id number] ?Pt. ? Col Date: ?? 07/08/2012 ?/Sex: ?1940,(72 years),Female ? Rec Date: ?? 07/08/2012 ?LOC: ?5L ? CYTOPATHOLOGY: ??GLASS SELECTOR ? ---Adequacy--- ? Specimen submitted is satisfactory. Vaginal Only. ? ---Cytopathologic Diagnosis--- ? NORMAL ? Negative for Intraepithelial Lesion or Malignancy (NILM). ? 07/09/12 ?? Screened by: ??LMY ??SLA ? 07/10/12 ?? Verified by: ??ABDON Munoz(ASCP), Stefany Rivera - ? Human Resources Operations Coordinator ? ---Clinical Information--- ? HPV Option: ? No HPV Testing ? Preparation: ?Liquid Based Pap ? Specimen Source: ?Vaginal only/LBP/Diagnostic ? LMP: ?Post menopausal, hx bladder cancer, new posterior ? wall bladder lesion ? Hormones?: ?No ? Hysterectomy?: ?Total Hysterectomy ?: ?No ?: ?No ? I.U.D.?: ?No ? Pelvic Radiation: ? No ? Prior GLASS SELECTOR Therapy?: ? No ? Hist Abnl Pap/Biopsy?: [...] ??For further ? information please contact the [facility] Laboratory. ? Reference: ??Gunjan AMBRIZ. ??Steam Fitter Supervisor Maintenance of Pap Smear Results. ??In: ? Rosy BS, [employer] [facility], ed. ??The Pap Smear. ??[place]: ??[place], 2002: ? 71-77. JORY MAYFIELD 07/08/2012 8:27 PM EDT Loulou Benjamin MD PATHOLOGY/C YTOLOGY ORDERABLES JORY MAYFIELD from Last 3 Months or Most Recently Relevant to Health Maintenance Care Teams Pipelaying Fitter Relationship Specialty Start Date End Date Aysha Johnson MD [address] [place] [address] PCP - General Family Medicine 12/12/23
--- OUTSIDE RECORDS SUMMARY | 2024-04-20 15:50 | XMS_ITS | Continuity of Care Document ---
Author Organization [facility] Address [address] [place] [address] Care Team Providers Care Trigonometry Tutor Name Role Phone CRYSTAL MCCORMACK Housing Liaison LANI WALLIS Tube Balancer Assessment No assessment recorded. Plan of Treatment Reminders Order Date Submit Date Provider Last Modified By Organization Details Last Modified Time Details Appointments Nurse Visit 20 2024 02:45P M Franklin Nursing Staff Not available Not available Not available Lab BMP, serum or plasma 2023 024 [email or web address] [facility] (Registration ), [address] [place] [address] [place], [address], 03/30/2024 07:17:36 BMP, serum or plasma 2023 024 [email or web address] [facility] (Registration ), [address] [place] [address] [place], [address], 03/31/2024 12:02:32 Referral None recorded . Procedures [...] [facility] RADIOL OGY [place] [id number] RADIOL OGY TRANSC RIPTIO N REPORT _ Patien t Name: CRISTEL SEGUNDO MRN: Sex: : Age: [id number] F [id number] Accoun t: Access ion: Admit: StayTy pe: [id number] 2023 E Ravinder d: Order ID: Submit nate: Ordergwendolyn ng Provid er: 2023 16:03 [id number] Zoey MOSLEY nate: Techno logist : Result [...] partic ipate in the care of this luisen t. If you are a health care [facility] er and have any questi ons regard ing this report , please contac t the number below. For patien ts who have questi ons please contac t the health care profes sional that reques nate your imagin g first. Electr onical ly signed by: Kimberly Keith MD [facility] sohan ji ([phone]), at 2023 4:28 PM INTERFACE [facility] (Lab) [address] [place] [address], [address], 03/17/2024 16:35:27 03/17/20 24 03/17/2024 EKG order yony aly 12 lead [facility] Pepe bayVirgilioamelie [address] EKG TRANSC RIPTIO N REPORT _ Accoun t: Access ion: Admit: StayTy pe: [id number] 2023 E/R Observ ation: Order ID: Submit nate: David aly Provid er: 2023 16:34 [id number] KIN BOYLE _ [place] [id number] [facility] Date: 2023-04 Pat Name: KAYLEE Khan Depart ment: Brice Rivas t ID: [id number] Room: Gender : Yue Techngwendolyn donaldsonn: jr : 1941-0 06-22 Reques nate By: FRANC Yanes Order Number : [id number] Kelby mcdaniels MD: Jung Corona Measur ements Interv als Derby Rate: 109 P: 57 NM: 182 QRS: -22 QRSD: 92 T: 0 QT: 328 QTc: 441 Interp retive Statem ents Sinus tachyc ardia Poor R wave progre ssion, likely due to lead placem ent Compar ed to ECG 2023 09:24: 01 Sinus rhythm no longer presen t Electr onical ly Signed On 2023 19:33: 53 EST by Jung Corona [facility] (Lab) [address] [place], [address], 03/17/2024 19:35:41 Result Notes None recorded. Problems Name Problem SNOMED Code Status Onset Date Resolution Date Notes Provider Name and Address Organization Details Recorded Time Acute lower respirat ory tract infectio n 178932475 Completed 202303/27/[address], [facility] [address] , [facility] 4 14:21:53 Acute confusio n 397246629 Completed 202303/27/[address], [facility] [address] , [facility] 4 14:21:53 Mild intermit tent asthma 091466768 Active [address], [facility] [address] , [facility] 4 15:28:45 Chronic cough 42221509 Active [address], [facility] [address] , [facility] 5 14:11:35 Dysuria 67808353 Active 2024 Problem Code: R30.0; Problem Code Type: ICD-10; MD Livan RODRIGUEZ Dr, [facility] [address] 5 14:40:58 Dry lips 573568888 Active [address], [facility] [address] [place] [address] 5 15:15:20 Loose stool 347028812 Active [address], [address] 5 15:16:13 Encopres is 930518799 Active [address], [address] 5 15:16:22 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 993210721 Active [address], [address] 5 15:16:36 [facility] hyperten eugene 64391274 Completed 201305/13/2023 Problem Code: I10; Problem Code Type: ICD-10; MD Livan RODRIGUEZ Dr, [address] 4 13:45:04 Migraine 90119786 [facility] 4 12:45:27 History of disorder of digestiv e system 988958579 Completed 201305/13/2023 Problem Code: Z87.19; Problem Code Type: ICD-10; MD Livan RODRIGUEZ Dr, [place] [address] , [facility] 4 13:45:04 Restless legs 97153817 Active 2013 Gail rodriguez, [facility] 4 12:48:18 Disorder of nervous system due to type 2 diabetes mellitus 705585063 Completed 201305/13/2023 04/27/19 20 - Comments only [...] Code Type: ICD-10; MD Livan RODRIGUEZ Dr, [address] 4 13:45:04 Allergic rhinitis 86098416 Completed 201305/13/2023 Problem Code: J30.9; Problem Code Type: ICD-10; MD Livan RODRIGUEZ Dr, [address] 4 13:45:04 Mixed hyperlip idemia 056835304 Active 2013 Gail rodriguez, [facility] 4 12:45:48 Neuropat hy due to type 2 diabetes mellitus 03993234568 9106 Active 2013 Gail Puckett [facility] 4 12:46:16 Intolera nce to lactose 083407126 Completed 201305/13/2023 Problem Code: E73.9; Problem Code Type: ICD-10; MD Livan RODRIGUEZ Dr, [facility] [address] , [facility] 4 13:45:04 Heart murmur 69206315 Active [address], [facility] [address] [place] [address] 4 06:52:52 History of malignan t neoplasm of bladder 864541800 Active 2013, recurren ce 2008, Dr. Boykin, chemo instilla tion, straight caths [facility] 4 12:43:10 History of nutritio nal disorder 907148501 Completed 201405/13/2023 RUPAL BARILLAS MD [address], [place], [address] , [facility] 4 13:45:04 Irritabl e bowel syndrome 34347844 Active 2014 [facility] 4 12:45:06 Eczema 93902654 Active 2014 [facility] 4 12:38:10 Hernia of abdomina l cavity 05478255 Active 2015 [facility] 4 12:41:15 Cirrhosi s of liver 03047463 Completed 201505/13/2023 09/22/19 20 - Comments only - Nat Bryant M.D. - Has gained some weight, and possibly has ascites, although I have never examined her before. Follow-u p as planned tomorrow for imaging, labs, and speciali [facility] ent at [facility]. Problem Code: K74.69; Problem Code Type: ICD-10; RUPAL BARILLAS MD [address], [place], [address] , [facility] 4 13:45:04 History of urinary tract infectio n 40242810387 07 Completed 201505/13/2023 08/03/19 16 - Comments [...] Code Type: ICD-10; MD Livan RODRIGUEZ Dr, [facility] [address] [place] [address] 4 13:45:04 Screenin g for malignan t neoplasm of breast Completed 201505/13/2023 Problem Code: Z12.39; Problem Code Type: ICD-10; MD Livan RODRIGUEZ Dr, [address] 4 13:45:04 Candidia sis of vagina 69967947 Completed 201505/13/2023 Problem Code: B37.3; Problem Code Type: ICD-10; MD Livan RODRIGUEZ Dr, [facility] [address] [place] [address] 4 13:45:04 Portal hyperten eugene 71194549 Active 2015 no ascites or encephal opathy, EGD 2015 (gastric ulcer) [facility] 4 12:47:45 Genitour inary symptoms 381142297 Completed 201504/17/2016 Problem Code: R39.89; Problem Code Type: ICD-10; Not Available [facility] 3 04:10:10 Screenin g for malignan t neoplasm of colon Completed 201605/13/2023 Problem Code: Z12.11; Problem Code Type: ICD-10; MD Livan RODRIGUEZ Dr, [facility] [address] , [facility] 4 13:45:04 Pneumoni a 618967230 Completed 201602/15/2017 02/12/20 17 - Improved - 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 EMAIL CAMPAIGN SPECIALIST - s/p tx with azithrom ycin pt signific antly improved RTC if sx worsen/p ersist Problem Code: J18.9; Problem Code Type: ICD-10; MD Livan RODRIGUEZ Dr, [address] 4 14:21:53 Orthosta tic hypotens ion 29044419 Active 2017 [facility] 4 12:46:41 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 43783887 Active 2018 small endoscop y 2019 [facility] repeat one year [facility] 4 12:39:42 Hepatic failure 54321490 Completed 201805/13/2023 Problem Code: K72.90; Problem Code Type: ICD-10; MD Livan RODRIGUEZ Dr, [address] 4 13:45:04 Acute upper respirat ory infectio n 90654489 Completed 201811/08/2018 Problem Code: J06.9; Problem Code Type: ICD-10; MD Livan RODRIGUEZ Dr, [address] 4 13:45:04 Proteinu vinod 02386783 Completed 201805/13/2023 Problem Code: R80.9; Problem Code Type: ICD-10; MD Livan RODRIGUEZ Dr, [address] 4 13:45:04 Hyperlip idemia 24205952 Active 2018 [facility] 4 12:44:49 Gastroes ophageal reflux disease without esophagi tis 751915319 Active 2019 [facility] 4 12:39:54 Urinary tract infectio us disease 21066416 Completed 201909/29/2019 09/22/19 20 - Comments only - Nat Bryant M.D. - UA positive for leuks, blood, nitrites . Unfortun ately, was not able to provide large enough sample to send for culture. Urine culture from recent hospital ization showed pansensi tive E. coli, so we will treat as they did with cephalex in. Instruct ed her to call with donyain g or persiste nce. Problem Code: N39.0; Problem Code Type: ICD-10; Not Available [facility] 3 04:10:12 Nervous system and sense organ diseases 914020971 Completed 202005/13/[address], [place], [address] , [facility] 4 13:45:04 Fall on or from stairs or steps Completed 202005/27/2020 Problem Code: W10.9xxA ; Problem Code Type: ICD-10; Not Available [facility] 3 04:10:12 Knee joint effusion 023094859 Completed 202006/06/2020 Problem Code: M25.469; Problem Code Type: ICD-10; Not Available [facility] 3 04:10:13 Low back pain 991817502 Completed 202006/20/2020 Problem Code: M54.5; Problem Code Type: ICD-10; INDIR[address] Y[address], [place], [address] , [facility] 4 14:31:55 Dysuria 87814681 Completed 202009/03/2020 Problem Code: R30.0; Problem Code Type: ICD-10; MD Livan RODRIGUEZ Dr, [place], [address] , [facility] 5 14:40:58 Psychoph ysiologi c insomnia 967439081 Active 2020 Insomnia , chronic Gail Lavern rodriguez, [facility] 4 12:48:07 Dizzines s and giddines s 496695291 Completed 202010/31/2020 Problem Code: R42; Problem Code Type: ICD-10; Not Available [facility] 3 04:10:14 Atrophic vaginiti s 09608580 Active 2020 Gail rodriguez, [facility] 4 12:37:19 Urinary tract infectio us disease 27880260 Completed 202003/03/2021 Problem Code: N39.0; Problem Code Type: ICD-10; Not Available [facility] 3 04:10:14 Disorder of hematopo ietic structur e 891230046 Completed 202105/13/2023 Problem Code: D75.89; Problem Code Type: ICD-10; RUPAL BARILLAS MD [address], [address] 4 13:45:04 Tension- type headache 527072446 Completed 202105/13/2023 Problem Code: G44.209; Problem Code Type: ICD-10; RUPAL BARILLAS MD [address], [address] 4 13:45:04 Acute conjunct ivitis of left eye 58147582683 9105 Completed 202112/19/2021 12/13/19 22 - Comments only - Nat Bryant M.D. - Likely bacteria l. Rx sent for e-mycin ointment . Call for reevalua tion if worsenin g, or no better w/in 48 hours. Problem Code: H10.32; Problem Code Type: ICD-10; Not Available [facility] 3 04:10:15 Cerebrov ascular disease 44827987 Active 2021 Gail rodriguez, [facility] 4 12:37:49 Urinary tract infectio us disease 67563343 Completed 202208/28/2022 Problem Code: N39.0; Problem Code Type: ICD-10; Not Available [facility] 3 04:10:15 Pneumoni a 136645114 Completed 202211/08/2022 10/30/19 23 - Improved - [...] Code Type: ICD-10; MD Livan RODR[address]UEZ Dr, [place], [address] , [facility] 4 14:21:53 Edema 894786779 Active 2022 Peripher al edema [facility] 4 12:38:42 Castillo' s esophagu s 214271055 Active 2022 [facility] 4 12:37:33 Candidia sis of skin 19855723 Completed 201810/23/2022 Problem Code: B37.2; Problem Code Type: ICD-10; Not Available [facility] 3 04:10:16 Acute atopic conjunct ivitis 68441822 Completed 201804/21/2019 Problem Code: H10.10; Problem Code Type: ICD-10; Not Available [facility] 3 04:10:16 Constipa tion 82595839 Completed 201301/02/2023 Problem Code: K59.00; Problem Code Type: ICD-10; Not Available [facility] 3 04:10:16 Cough 49512150 Completed 202201/02/2023 Problem Code: R05.8; Problem Code Type: ICD-10; MD Livan RODRIGUEZ Dr, [place], [address] , [facility] 4 14:21:53 Hyperten sive disorder 04658113 Completed 201301/02/2023 Not Available [facility] 3 04:10:17 Neoplasm of urinary bladder 613727550 Completed 201301/02/2023 Problem Code: D49.4; Problem Code Type: ICD-10; Not Available [facility] 3 04:10:17 Enthesop athy 67981333 Completed 201812/26/2020 Problem Code: M77.9; Problem Code Type: ICD-10; Not Available [facility] 3 04:10:17 Hypercal cemia 07902452 Completed 201401/02/2023 Not Available [facility] 3 04:10:18 Lung field abnormal 351878305 Completed 201607/29/2017 Problem Code: R91.8; Problem Code Type: ICD-10; Not Available [facility] 3 04:10:18 Insomnia 493812597 Completed 201906/06/2021 Problem Code: F51.09; Problem Code Type: ICD-10; Not Available [facility] 3 04:10:18 Disorder of lung 03954757 Completed 201710/23/2022 Problem Code: J98.4; Problem Code Type: ICD-10; Not Available [facility] 3 04:10:18 Type 2 diabetes mellitus without complica tion 020500658 Completed 201301/02/2023 Problem Code: E11.9; Problem Code Type: ICD-10; [address], [place], [address] , [facility]. 4 15:17:00 Pain of left shoulder joint 21392024910 099326 Completed 201406/06/2021 Problem Code: M25.512; Problem Code Type: ICD-10; Not Available [facility] 3 04:10:19 Screenin g for osteopor osis Completed 201602/11/2017 Problem Code: Z13.820; Problem Code Type: ICD-10; Not Available [facility] 3 04:10:19 Inflamed seborrhe ic keratosi s 550932514 Completed 201910/23/2022 Problem Code: L82.0; Problem Code Type: ICD-10; Not Available [facility] 3 04:10:20 Disorder of brain 80435767 Completed 202103/05/2022 Problem Code: G93.40; Problem Code Type: ICD-10; Not Available [facility] 3 04:10:20 Other idiopath ic peripher al neuropat hy NOS Completed 201301/02/2023 Not Available [facility] 3 04:10:20 Obesity 948729937 Completed 201301/02/2023 Not Available [facility] 3 04:10:20 Fatigue 60095340 Completed 201810/27/2018 Problem Code: R53.83; Problem Code Type: ICD-10; Not Available [facility] 3 04:10:21 Genitour inary symptoms 938353950 Completed 201904/04/2020 Problem Code: R39.9; Problem Code Type: ICD-10; Not Available [facility] 3 04:10:21 Benign paroxysm al position al vertigo 164891952 Completed 202001/02/2023 Problem Code: H81.10; Problem Code Type: ICD-10; Not Available [facility] 3 04:10:22 Disorder of skin and/or subcutan eous tissue 86156885 Completed 201904/04/2020 Problem Code: L98.9; Problem Code Type: ICD-10; Not Available [facility] 3 04:10:22 Osteophy te of bone 73615146323 9100 Completed 201906/28/2020 Problem Code: M25.776; Problem Code Type: ICD-10; Not Available [facility] 3 04:10:22 Gastric ulcer 109182469 Completed 201501/02/2023 Problem Code: K25.9; Problem Code Type: ICD-10; Not Available [facility] 3 04:10:22 Right side sciatica 59948846614 9101 Completed 201804/21/2019 Problem Code: M54.31; Problem Code Type: ICD-10; Not Available [facility] 3 04:10:23 Toniia sis 44157257 Completed 201308/22/2015 Problem Code: B37.9; Problem Code Type: ICD-10; Not Available [facility] 3 04:10:23 Steatosi s of liver 496274943 Completed 201302/10/2016 Problem Code: K76.0; Problem Code Type: ICD-10; Not Available [facility] 3 04:10:23 Cough 44431098 Completed 201912/26/2020 Problem Code: R05; Problem Code Type: ICD-10; RUPAL BARILLAS MD [address], [place], [address] [facility] 4 14:21:53 Xerostom ia 03860934 Completed 202006/06/2021 Problem Code: R68.2; Problem Code Type: ICD-10; [facility] 4 12:49:03 Candidal vulvovag initis 32671695 Completed 201301/02/2023 Problem Code: 112.1; Problem Code Type: ICD-9; Not Available [facility] 3 04:10:25 Intestin al disaccha ridase deficien cy 95836996 Completed 201301/02/2023 Problem Code: 271.3; Problem Code Type: ICD-9; Not Available [facility] 3 04:10:25 Acute bronchit is 37408921 Completed 201912/26/2020 Problem Code: J20.9; Problem Code Type: ICD-10; Not Available [facility] 3 04:10:26 Peripher al nerve disease 772527284 Completed 201301/02/2023 Not Available [facility] 3 04:10:26 Acute upper respirat ory infectio n 65269706 Completed 202205/13/2023 Problem Code: J06.9; Problem Code Type: ICD-10; MD Livan RODRIGUEZ Dr, [address] 4 13:45:04 Diastoli c heart failure 523004329 Active 2022 echo 03/[address], [address] 3 11:17:46 Chest pain 71537057 Completed 202205/13/2023 Problem Code: R07.89; Problem Code Type: ICD-10; MD Livan RODRIGUEZ Dr, [address] 4 13:45:03 Aortic stenosis , non-rheu matic 610310232 Active 2022 mild 03/2023 echo MD Livan RODRIGUEZ Dr, [address] 4 06:52:21 Senile hyperker atosis 318987964 Completed 202205/13/2023 Problem Code: L82.1; Problem Code Type: ICD-10; MD Livan RODRIGUEZ Dr, [address] 4 13:45:03 Melanocy tic nevus 709262710 Completed 202205/13/2023 Problem Code: D22.9; Problem Code Type: ICD-10; MD Livan RODRIGUEZ Dr, [address] 4 13:45:04 [facility] 959834841 Completed 202205/13/2023 01/31/20 23 - Comments only - Rupal Barillas MD - neuro exam not c/w CVA; will eval further at next visit. Problem Code: R27.9; Problem Code Type: ICD-10; MD [address]ivan [address], [place], [address] , [facility] 4 13:45:03 Dyspnea 567549727 Completed 202205/13/2023 Problem Code: R06.09; Problem Code Type: ICD-10; MD [address]ivan [address], [place], [address] , [facility] 4 13:45:03 Chronic diarrhea 044503078 Active 2023 [facility] 12:37:57 Drug-ind uced xerostom ia 062877796 Active [address], [place], [address] , [facility] 13:38:38 Microalb uminuric diabetic nephropa thy 114560275 Active 2023 [facility] 12:45:11 Dyspnea on exertion 71096574 Active 2023 [facility] 12:37:57 Angular cheiliti s 217019074 Active 2023 [facility] 12:36:56 Xerostom ia 97070417 Active 2023 [facility] 12:49:03 History of adenomat ous polyp of colon 961470085 Active 2020 [facility] 12:43:44 Sialoade nitis 66881879 Completed 202308/09/[address], [place], [address] , [facility] 4 16:48:36 Low back pain 643936439 Active 2023 Problem Code: M54.5; Problem Code Type: ICD-10; AMADEO VICTORINO, WHOLESALER [address], [facility] [address] [place] [address] 4 14:31:55 Chest pain on exertion 03087272 Active [address], [address] [place] [address] 4 12:24:41 Always hungry 944015861 Active [address], [address] [place] [address] 4 16:38:32 Altered bowel function 32109796 Active [address], [address] [place] [address] 4 16:38:44 Atypical chest pain 268015171 Active 2023 DORIS JONES MA [facility], [facility] 4 07:31:04 Acquired thromboc ytopenia 22857366 Active [address], [place] [address] , [facility] 4 09:56:08 Actinic keratosi s 229679562 Active [address], [facility] [address] [place] [address] 4 13:34:57 Nodule of lung 709806793 Active 2023 probable lipoma by PET. (benign) MD Livan RODRIGUEZ Dr, [facility] [address] , [facility] 4 06:49:28 Minimal cognitiv e impairme nt 637760364 Active [address], [place], [address] , [facility] 4 15:05:52 New daily persiste nt headache 05369150937 9105 Active [address], [place], [address] , [facility] 4 16:29:33 Lichen sclerosu s of vulva 318983947 Active [address], [place], [address] , [facility] 4 15:22:25 Milia 757547774 Active [address], [facility] [address] , [facility] 4 15:51:39 Obstruct keshia sleep apnea syndrome 02531636 Active 2023 DORIS JONES MA null, [facility] 4 09:39:29 Atherosc lerosis Active 2023 DORIS JONES MA null, [facility] 4 09:39:44 Cirrhosi s - non-alco holic 610020719 Active 2023 with esoph varices and low PLT but no ascites, jaundice or sx. MD [address]ivan [address], [place], [address] , [facility] 4 06:56:02 Vulvitis 00113663 Active [address], [place], [address] , [facility] 4 13:20:01 Thromboc ytopenic disorder 237772112 Active [address], [facility] [address] , [facility] 4 13:23:28 Decompen sated cirrhosi s of liver 528646840 Active [address], [place], [address] , [facility] 4 14:23:47 Type 2 diabetes mellitus without complica tion 851810033 Active 2023 Problem Code: E11.9; Problem Code Type: ICD-10; IN[address], [facility] [address] , [facility] 4 15:17:00 Coronary arterios clerosis 72135359 Active 2023 DORIS JONES MA [facility], [facility] 4 12:31:32 Hyperpig mentatio n of skin 20988594 Active [address], [place], [address] , [facility] 4 15:19:42 Pneumoni a 504935363 Completed 202303/27/2024 10/30/19 23 - Improved - [...] Code Type: ICD-10; MD Livan [address], [place], [address] , [facility] 4 14:21:53 Cough 04902528 Completed 202303/27/2024 Problem Code: R05.8; Problem Code Type: ICD-10; MD [address]ivan [address] Dr, [place], [address] , [facility] 14:21:53 Notes:Some problems listed i n Document: #[id number] could not be added to this patient's chart. Please review this document and add these problems to the patient's chart manually as needed. Problem Notes None recorded. Procedures Surgical History Date Name Laterality Status Provider Name and Address Organization Details Recorded Time Cryosurgery Multiple Actinic Keratoses completed MD Livan RODRIGUEZ Dr, [facility] [address] [place] [address] 03/06/2024 11:24:31 4 Cryosurgery Warts/Skin Tags completed MD Livan RODRIGUEZ Dr, [facility] [address] [place] [address] 10/18/2023 15:47:48 4 Cryosurgery Warts/Skin Tags completed MD Livan RODRIGUEZ Dr, [facility] [address] [place] [address] 10/07/2023 13:34:27 Imaging Results None recorded. Procedure Notes None recorded. Medical Equipment None Reported. Allergies Allergen ID Allergen Name Allergen Category Reaction Reaction Severity Criticality Documentation Date Start Date Code Code System Note Provider Name and Address Organization Details Recorded Time 62919 erythromy laura medicatio n other moderate Not available 02/15/20232013 4053 [facility] 12:[facility]11 11427 Bactrim medicatio n itching moderate Not available 08/01/20232013 97150 9 RxNorm itchy skin Gail Puckett [facility] 12:51:33 03998 codeine medicatio n itching moderate Not available 08/01/20232013 2670 RxNorm itchy , paran oid Gail Fregosoeri [facility], [facility] 12:52:07 03068 Demerol medicatio n other moderate Not available 08/01/20232013 44192 1 RxNorm can' t sleep Gail rodriguez, [facility] 4 12:52:55 35964 simvastat in medicatio n nausea moderate Not available 08/01/20232013 11723 RxNorm (ALLS TATIN S) Gail Puckett [facility], [facility] 4 12:53:40 48250 Trulicity medicatio n vomiting moderate low 09/25/2023 57944 96 RxNorm RUPAL BARILLAS MD [address], [place], [address] [place] [address] 4 12:57:22 Medications Name Sig Start Date [...] a day by oral route. 2023 active [facility] GI Not Available Not Available Not Avai [...] once a day 12/[address] Wallis, [facility], after August 2022 OV Not Available Not Available Not Available gabapenti n 800 mg tablet Take 1 tablet by mouth three times a day 2019 active Not Available Not Available Not Avai lable [employer] Ultra Test strips USE 1 STRIP VIA [...] Relief 50 mcg/actua tion nasal spray,moraima pension [place] 1 spray into both nostrils once a [...] Smoking Status Never Smoker MARY PRETTY MA [facility], [place] - [facility]. 03/18/2023 15:57:23 Would You Say That, In General, Your Health Is Good [email or web address] Information not available 08/09/2023 How Often Does Anyone, Including Family, Physically Hurt You? Never [email or web address] Information not available 08/09/2023 How Often Does Anyone, Including Family, Insult Or Talk Down To You? Rarely [email or web address] Information no t available 08/09/2023 How Often Does Anyone, Including Family, Threaten You With Harm? Never [email or web address] Information not available 08/09/2023 How Often Does Anyone, Including Family, Scream Or Curse At You? Never [email or web address] Information not available 08/09/2023 Within The Past 12 Months, You Worried That Your Food Would Run Out Before You Got Money To Buy More. Never True [email or web address] Information n ot available 08/09/2023 Within The Past 12 Months, The Food You Bought Just Didn't Last And You Didn't Have Money To Get More. Never True [email or web address] Information not available 08/09/2023 How Hard Is It For You To Pay For The Very Basics Like Food, Housing, Medical Care, And Heating? Would You Say It Is: Somewhat Hard [email or web address] Information not available 08/09/2023 In The Past 12 Months, Has Lack Of Reliable Transportation Kept You From Medical Appointments, Meetings, Work Or From Getting Things Needed For Daily Living? No [email or web address] Information not available 08/09/2023 What Is Your Housing Situation Today? I Have Housing. [email or web address] Information not available 08/09/2023 How Often In The Past Year Have You Used Marijuana (including Smoking, Vaping, Dabbing, Or Edibles)? Never [email or web address] Information not available 08/09/2023 How Often In The Past Year Have You Used Prescription Medications That Were Not Prescribed To You? Never [email or web address] Information not available 08/09/2023 How Often In The Past Year Have You Taken Your Own Prescription Medication More Than The Way It Was Prescribed Or For Different Reasons Than Its Intended Purpose? Never Information not available 08/09/2023 How Often In The Past Year Have You Used Other Drugs (for Example, Heroin, Cocaine, Meth, Salvia, Inhalants)? Never [email or web address] Information not available 08/09/2023 Have You Ever Used IV Drugs? No [email or web address] Information not available 08/09/2023 Date Of Most Recent SBINS 08/09/2023 [email or web address] Information not available 08/09/2023 What Was The Date Of Your Most Recent Tobacco Screening? 10/18/2023 [email or web address] Information n ot available 10/18/2023 Has Tobacco Cessation Counseling Been Provided? No Information not available 10/25/2023 Do You Or Have You Ever Used Any Other Forms Of Tobacco Or Nicotine? No [email or web address] Information not available 03/18/2023 Sex: Female Functional Status None recorded. Mental Status None recorded. Family History Relationship Description Onset Age of this Age Resolved Age Notes LastModified by Organization Details LastModified Time Mother Family history of acute medical disorder ed Not available 2022 03:54:47 Notes:*Problem: Mother: d. 6 7 , cirrhosis, non ETOH Father: d. [place], acute hepatitis Sisters: x1, cirrhosis, non ETOH, [...] high-dose, trivalent, PF 4 completed GIOVANNA ASIF, [facility] 01/09/2024 16:25:43 COVID-19, mRNA, LNP-S, PF, mayito-sucrose, 30 mcg/0.3 mL 4 completed GIOVANNA ASIF, [facility] 01/09/2024 16:25:43 Td (adult), 2 Lf tetanus toxoid, preservative free, adsorbed 7 completed Not Available [facility] 02/15/2023 05:29:32 Hep A-Hep B 7 completed Not Available [facility] 02/15/2023 05:29:32 Hep A-Hep B 6 completed Not Available [facility] 02/15/2023 05:29:32 Tdap 7 completed Not Available [facility] 02/15/2023 05:29:32 Pneumococcal conjugate PCV 13 7 completed Not Available [facility]/15[facility] 05:29:32 Td(adult) unspecified formulation 6 completed Not Available [facility] 02/15/2023 05:29:32 Influenza, split virus, trivalent, preservative 6 completed Not Available [facility] 02/15/2023 05:29:32 Influenza, split virus, trivalent, preservative 5 completed Not Available [facility] 02/15/2023 05:29:32 Influenza, split virus, quadrivalent, PF 2 completed Not Available [facility] 02/15/2023 05:29:33 Influenza, split virus, quadrivalent, PF 3 completed Not Available [facility] 02/15/2023 05:29:33 Influenza, split virus, quadrivalent, preservative 7 completed Not Available [facility] 02/15/2023 05:29:33 Influenza, split virus, quadrivalent, preservative 8 completed Not Available [facility] 02/15/2023 05:29:33 Influenza, high-dose, quadrivalent, PF 1 completed Not Available [facility] 02/15/2023 05:29:33 COVID-19, mRNA, LNP-S, PF, 100 mcg/0.5mL dose or 50 mcg/0.25mL dose 1 completed Not Available [facility] 02/15/2023 05:29:33 COVID-19, mRNA, LNP-S, PF, 100 mcg/0.5mL dose or 50 mcg/0.25mL dose 1 completed Not Available [facility] 02/15/2023 05:29:33 COVID-19, mRNA, LNP-S, PF, 100 mcg/0.5mL dose or 50 mcg/0.25mL dose 2 completed Not Available [facility] 02/15/2023 05:29:33 SARS-COV-2 (COVID-19) vaccine, UNSPECIFIED 1 completed Not Available [facility] 02/15/2023 05:29:34 COVID-19, mRNA, LNP-S, bivalent, PF, 30 mcg/0.3 mL dose 3 completed Not Available [facility] 02/15/2023 05:29:34 COVID-19, mRNA, LNP-S, bivalent, PF, 30 mcg/0.3 mL dose 2 completed Not Available [facility] 02/15/2023 05:29:34 pneumococcal polysaccharide PPV23 7 completed Not Available [facility] 02/15/2023 05:29:34 pneumococcal polysaccharide PPV23 5 completed Not Available [facility] 02/15/2023 05:29:34 pneumococcal polysaccharide PPV23 1 completed Not Available [facility] 02/15/2023 05:29:34 Hep B, adult 7 completed Not Available [facility] 02/15/2023 05:29:34 influenza, unspecified formulation 8 completed Not Available [facility] 02/15/2023 05:29:34 influenza, unspecified formulation 4 completed Not Available [facility] 02/15/2023 05:29:34 influenza, unspecified formulation 9 completed Not Available [facility] 02/15/2023 05:29:35 Influenza, high-dose, quadrivalent, PF 3 completed Not Available [facility] 04/19/2023 05:31:38 COVID-19, mRNA, LNP-S, PF, mayito-sucrose, 30 mcg/0.3 mL 3 completed Not Available [facility] 04/19/2023 05:31:38 Past Encounters Encounter ID Performer Location Encounter Start Date Encounter Closed Date Diagnosis/Indication Diagnosis SNOMED-CT Code Diagnosis ICD10 Code Diagnosis Note [id number] RUPAL BARILLAS MD [address] [address] 03/04/2024 13:41:07 03/04/2024 14:36:13 Neuropathy due to type 2 diabetes mellitus 8793975990 35796 E11.40 Actinic keratosis 007 L57.0 L eyelid, treated with cryotherap y today, re-eval at next OV. 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 Advised ER evaluation . Updated Brice provider. Her will bring her directly there. Acute confusion 71932594 0 R41.0 She was unable to give me any details and seemed more confused than usual, concerning for possible delirium. Advised ER evaluation . Her [id number] EMORY FOSTER LPN [address] [address] 03/23/2024 11:25:55 03/23/2024 11:44:16 Hypokalemia 32933488 E87.6 Health Concerns Section Related Observation LastModified by Organization Detai ls LastModified Time None Recorded Concern Status LastModified by Organization Details LastModified Time None Recorded Payers Encounter Date Sequence Insurance Name Policy Number Policy Lucas Covered Member ID Lucas Member ID Guarantor Name 03/23/2024 1 [id number]/A DVANTAGE - PPO) [id number] Milka Corbett [id number] Milka Corbett OBGyn Episode No OBEpisode recorded.
--- OUTSIDE RECORDS SUMMARY | 2024-04-20 15:51 | XMS_ITS | Encounter Summary ---
Author Organization [facility] [place] [address] Care Team Providers Care County Agricultural Agent Name Role Phone Salome Mcarthur APRN Primary Care Provider [phone] Encounter Details Date Type Department Care Team [...] AM [place] [address] Molly Cui [facility] [place] [address] 04/28/2024 2:00 PM EST Office [place] [address] Molly Cui [facility] [place] [address] documented as of this encounter Visit Diagnoses Not on filedocumented in this encounter Care Teams County Agricultural Agent Relationship Specialty Start Date End Date Salome Mcarthur APRN [address] [address] PCP - General Family Medicine 05/30/15 12/11/23 documented as of this encounter
--- OUTSIDE RECORDS SUMMARY | 2024-04-20 15:51 | XMS_ITS | Encounter Summary ---
Author Organization [facility] Address [facility] [place] [address] Care Team Providers Care Statistical Machine Mechanic Name Role Phone Salome Mcarthur APRN Primary Care Provider [phone] Encounter Details Date Type Department Care Team (Late st Contact Info) Description 11/24/2023 Notes Only Hematology [place] [phone] Dariel Ortega MD [facility] [address] HEMATOLOGY [place] [address] Social History Tobacco Use Types Packs/Day Years [...] 04/28/2024 11:00 AM EST [place] [address] Molly Cui APRN [facility] [address] [place] [address] 04/28/2024 2:00 PM EST Office [place] [address] Molly Cui APRN [facility] [place] [address] documented as of this encounter Visit Diagnoses Not on filedocumented in this encounter Care Teams Statistical Machine Mechanic Relationship Specialty Start Date End Date Salome Mcarthur APRN [address] [place] [address] PCP - General Family Medicine 05/30/15 12/11/23 documented as of this encounter
--- OUTSIDE RECORDS SUMMARY | 2024-04-20 15:51 | XMS_ITS | Encounter Summary ---
[place] [address] Care Team Providers Care Hub Inventory Specialist Name Role Phone Salome Mcarthur APRN Primary Care Provider [phone] Encounter Details Date Type Department Care Team (Late st Contact Info) Description 10/08/2023 Telephone [place] [address] Leyla Daily Social History Tobacco [...] 04/28/2024 11:00 AM EST Appoint[place] [address] Molly Cui [facility] [place] [address] 04/28/2024 2:00 PM EST Office [place] [address] Molly Cui [facility] [place] [address] documented as of this encounter Visit Diagnoses Not on filedocumented in this encounter Care Teams Hub Inventory Specialist Relationship Specialty Start Date End Date Salome Mcarthur APRN [address] [place] [address] PCP - General Family Medicine 05/30/15 12/11/23 documented as of this encounter
--- OUTSIDE RECORDS SUMMARY | 2024-04-20 15:51 | XMS_ITS | Encounter Summary ---
Author Organization [facility]ly [facility] [place] [address] Care Team Providers Care Glove Former Name Role Phone Aysha Johnson MD Primary Care Provider [phone] Encounter Details Date Type Department Care Team (Late st Contact Info) Description 12/16/2023 Telephone Cardiology at [address] [phone] Katelynn Fan, RN Social History Tobacco Use [...] [place] [facility] to the [facility]. Patient requested change. Home number left for call back. RTC to patient stating prescriptions for both NTG and ranolazine were approved and prescriptions sent to the [facility] in [facility]. Patient verbalizes understanding and has no further questions or concerns at this time. Katelynn Fan RN, BSN Ambulatory Cardiology [facility], [facility] [phone] Katelynn Fan RN, BSN Ambulatory Cardiology Clinic, [facility] [phone] documented in this encounter Plan of Treatment Upcoming Encounters Date Type Department Care Team (Late st Contact Info) Description 04/28/2024 11:00 AM [place] [address] Molly Cui, [facility] [place] [address] 04/28/2024 2:00 PM EST Office [place] [address] Molly Cui, [facility] [place] [address] documented as of this encounter Visit Diagnoses Not on filedocumented in this encounter Care Teams Glove Former Relationship Specialty Start Date End Date Aysha Johnson MD [address] [address] PCP - General Family Medicine 12/12/23 documented as of this encounter
--- OUTSIDE RECORDS SUMMARY | 2024-04-20 15:51 | XMS_ITS | Encounter Summary ---
Author Organization [facility] [place] [address] Care Team Providers Care Automatic Pinsetter Adjuster Name Role Phone Salome Mcarthur APRN Primary Care Provider [phone] Encounter Details Date Type Department Care Team (Latest Contact Info) Description 08/08/2023 12:35 PM EDT Laboratory Appointment Lab [address] [place] [address] Hepatic cirrhosis, unspecified hepatic cirrhosis [...] 04/28/2024 11:00 AM EST [place] [address] Molly Cui [facility] [place] [address] 04/28/2024 2:00 PM EST Office [place] [address] Molly Cui [facility] [place] [address] documented as of this encounter [...] 12:19 PM EDT) Neutrophil % 63.4 % [facility] Neutrophil Absolute 3.44 1.70 - 6.10 x10(3)/[facility] Lymph % 24.0 % [facility] Lymphocytes Abs 1.3 0.9 - 3.2 x10(3)/[facility] Monocyte % 10.1 % [facility] Monocyte Abs 0.6 0.3 - 0.9 x10(3)/[facility] Eos % 1.5 % [facility] Eosinophils Abs 0.1 0.0 - 0.4 x10(3)/[facility] Basophil % 0.6 % [facility] Baso Absolute 0.0 0.0 - 0.1 x10(3)/[facility] Immature Gran % 0.40 % [facility] Comment: Immature granulocytes(IG's)percentage and absolute count will include metamyelocytes, myelocytes, and promyelocytes. Blood smears from CBCs yielding IG's will be scanned manually for concordance. If this scan disagrees with the automated IG or if promyelocytes are noted, a manual differential will be performed. Immature Gran Absolute 0.02 0.00 - 0.04 x10(3)/[facility] Blood 08/08/2023 12:1 9 PM EDT 08/08/2023 12:41 PM EDT Narrative Resulting Agency Comment Spec In Lab Molly Cui APRN HEMATOLOGY ORDERAB LES [facility] [place] [address] * (ABNORMAL) Hemogram (08/08/2023 12:19 PM EDT) White Blood Cell 5.4 4.0 - 9.5 x10(3)/[facility] Red Blood Cell 4.15 4.00 - 5.21 x10(6)/[facility] Hemoglobin 12.8 11.7 - 15.5 g/dL [facility] Hematocrit 38.5 35.7 - 45.8 % [facility] Mean Cell Volume 92.8 82.6 - 94.4 [facility] Mean Cell Hemoglobin 30.8 27.1 - 32.0 pg [facility] Mean Cell Hemoglobin Concentration 33.2 31.7 - 35.0 g/dL [facility] Platelet 78(L) 145 - 357 x10(3)/[facility] RDW Standard Deviation 45.4 37.0 - 46.0 [facility] RDW coefficient of variation 13.3 11.5 - 14.1 % [facility] Mean Platelet Volume 12.1 7.6 - 12.9 [facility] NRBC% auto 0.0 % [facility] NRBC Absolute 0.000 0.000 - 0.000 x10(3)/[facility] Blood 08/08/2023 12:1 9 PM EDT 08/08/2023 12:41 PM EDT Narrative Resulting Agency Comment Spec In Lab Mollyjuan a Cui LORETO HEMATOLOGY ORDERAB LES [facility] [place] [address] * (ABNORMAL) Comprehensive metabolic panel (non-fasting) (08/08/2023 12:19 PM EDT) Glucose 110 65 - 199 mg/dL [facility] Comment:Diabetes: >=200 mg/d L plus symptoms Blood Urea Nitrogen 19(H) 8 - 18 mg/dL [facility] Creatinine 0.72 0.70 - 1.20 mg/dL [facility] Sodium 144 135 - 145 mmol/L [facility] Potassium 4.1 3.5 - 5.0 mmol/L [facility] Comment: Please note: ??Patients with WBC >100,000 may have falsely elevated Potassium levels. ??For accurate Potassium quantification in these patients send serum separator tube (gold top) for subsequent determinations. ??Contact the Clinical Chemistry Laboratory if there are any questions. Chloride 101 98 - 107 mmol/L [facility] Carbon Dioxide 28 22 - 31 mmol/L [facility] Anion Gap 15 5 - 15 mmol/L [facility] Calcium 10.0 8.5 - 10.5 mg/dL [facility] Protein, Total 7.0 6.1 - 8.0 g/dL [facility] Albumin 4.2 3.2 - 5.2 g/dL [facility] Aspartate Aminotransferase 34(H) 0 - 30 unit/L [facility] Alanine Aminotransferase 33(H) 0 - 30 unit/L [facility] Alkaline Phosphatase 121(H) 35 - 105 unit/L [facility] Bilirubin, Total 0.5 0.2 - 1.3 mg/dL [facility] Est Glomerular Filtration Rate 83 >=60 mL/min/1. 73 m?? [facility] [...] APRN CHEMISTRY ORDERABL ES Performing Organization Address [facility] Co de Phone Number [facility] [place] [address] * Prothrombin Time (08/08/2023 12:19 PM EDT) Prothrombin Time 12.2 9.4 - 12.5 sec [facility] [...] APRN HEMATOLOGY ORDERAB LES Performing Organization Address [facility]/ZIP Co de Phone Number [facility] [place] [address] documented in this encounter Visit Diagnoses Diagnosis Hepatic cirrhosis, unspecified hepatic cirrhosis type, unspecified whether ascites present documented in this encounter Care Teams Automatic Pinsetter Adjuster Relationship Specialty Start Date End Date Salome Mcarthur, ASSISTANT STORE MANAGER SALES [address] [place] [address] PCP - General Family Medicine 05/30/15 12/11/23 documented as of this encounter
--- OUTSIDE RECORDS SUMMARY | 2024-04-20 15:51 | XMS_ITS | Encounter Summary ---
Author Organization [facility] [place] [address] Care Team Providers Care Supervisor Ride Assembly Name Role Phone Aysha Johnson MD Primary Care Provider [phone] Encounter Details Date Type Department Care Team [...] 04/28/2024 11:00 AM EST [place]oint[place] [address] Molly Cui APRN [facility] [place] [address] 04/28/2024 2:00 PM EST Office [place] [phone] Molly Cui APRN [facility] [place] [address] documented as of this encounter Visit Diagnoses Not on filedocumented in this encounter Care Teams Supervisor Ride Assembly Relationship Specialty Start Date End Date Aysha Johnson MD [address] [place] [address] PCP - General Family Medicine 12/12/23 documented as of this encounter
--- OUTSIDE RECORDS SUMMARY | 2024-04-20 15:51 | XMS_ITS | Encounter Summary ---
Author Organization [facility] [place] [address] Care Team Providers Care Eligibility Examiner Name Role Phone Salome Mcarthur APRN Primary Care Provider [phone] Encounter Details Date Type Department Care Team [...] 11:00 AM EST Appointment [place] [address] Molly Cui REGISTERED DIETICIAN [facility] [place] [address] 04/28/2024 2:00 PM EST Office Visit [place] [address] Molly Cui [facility] [place] [address] documented as of this encounter Visit Diagnoses Not on filedocumented in this encounter Care Teams Eligibility Examiner Relationship Specialty Start Date End Date Salome Mcarthur APRN [address] [address] PCP - General Family Medicine 05/30/15 12/11/23 documented as of this encounter
--- OUTSIDE RECORDS SUMMARY | 2024-04-20 15:51 | XMS_ITS | Encounter Summary ---
Author Organization [facility] [place] [address] Care Team Providers Care Otr Truck Driver Name Role Phone Aysha Johnson MD Primary Care Provider [phone] Encounter Details Date Type Department Care Team (Latest Contact Info) Description 12/20/2023 12:15 PM EDT - 12/20/2023 11:59 PM EDT Hospital Encounter [place] [phone] Thrombocytopenia Discharge Disposition: Home Social History Tobacco Use Types Packs/Day Years Used Date Smoking Tobacco: Never Smokeless Tobacco: Never Alcohol Use Standard Drinks/Week Comments Yes 0 (1 standard drink = 0.6 oz pur e alcohol) once per year [facility] Inpatient Questions Answer Date Recorded Does Anyone [...] type, unspecified whether angina present, unspecified whether zuni or transplanted heart Place 1 tablet under the tongue every 5 minutes as needed for Chest pain. 25 tablet 12 12/13/2023 ranolazine ER (Ranexa) 500 mg ER 12 hr tabletIndications:Luis nary artery disease, unspecified vessel or lesion type, unspecified whether angina present, unspecified whether zuni or transplanted heart Take 1 tablet by mouth 2 times daily. 60 tablet 12/13/2023 isosorbide mononitrate CR (Imdur) 30 mg ER 24 hr tablet Take 30 mg by mouth 2 times daily. dleelzotks-abmjohu-wqi feine (Fiorinal) 50-325-40 mg tablet Take 1 [...] directed. 05/02/2020 fluticasone propionate (FLONASE) 50 mcg/actuation [place], Suspension 1 spray daily. pramipexole (MIRAPEX) 0.125 [...] 04/28/2024 11:00 AM [place] [address] Molly Cui TETRYL WRINGER OPERATOR [facility] [place] [address] 04/28/2024 2:00 PM EST Office [place] [phone] Molly Cui, LORETO [facility] [place] [address] documented as of this encounter Procedures Procedure Name Priority Date/Time Associated Diagnosis Comments HEPATITIS C ANTIBODY STAT 12/20/2023 12:29 PM EDT Thrombocytopenia LOCO-LLANOS VIRUS ANTIBODIES STAT 12/20/2023 12:29 PM EDT Thrombocytopenia CMV ANTIBODY, IGM STAT 12/20/2023 12: 29 PM EDT Thrombocytopenia HEPATITIS B CORE ANTIBODY, TOTAL STAT 12/20/2023 12:29 PM EDT Thrombocytopenia HIV SCREEN, 4TH GENERATION ([facility]/P/APD/[facility]) STAT 12/20/2023 12:29 PM EDT Thrombocytopenia [...] encounter Results * HIV Screen, 4th Generation ([facility]/CGP/APD/[facility]) (12/20/2023 12:29 PM EDT) [facility] Signature HIV Ab/Ag Screen Negative Negative 12/20/2023 1:38 PM EDT [facility] Comment:Low Risk of HIV Infe ction. Blood VENOUS BLOOD SPECIMEN / Unknown Venipuncture / Unknown 12/20/2023 12:29 PM EDT 12/20/2023 12:29 PM EDT Narrative [facility] - 12/20/2023 1:38 PM EDT [...] performed. Evin Little MD CHEMISTRY ORDERABLE S [facility] [place] [address] * Hepatitis C Antibody (12/20/2023 12:29 PM EDT) Pathologist [facility] Hepatitis C Antibody Negative Negative 12/20/2023 1:38 PM EDT [facility] Blood VENOUS BLOOD SPECIMEN / Unknown Venipuncture / Unknown 12/20/2023 12:29 PM EDT 12/20/2023 12:29 PM EDT Evin Little MD CHEMISTRY ORDERABLE S Performing Organization Address City/[facility]/ZIP Co de Phone Number [facility] [place] [address] * Hepatitis B Surface Antigen (12/20/2023 12:29 PM EDT) [facility] Hepatitis B Surface Antigen Negative Negative 12/20/2023 1:38 PM EDT [facility] Blood VENOUS BLOOD SPECIMEN / Unknown Venipuncture / Unknown 12/20/2023 12:29 PM EDT 12/20/2023 12:29 PM EDT Evin Little MD CHEMISTRY ORDERABLE S Performing Organization Address City/[facility]/ZIP Co de Phone Number [facility] [place] [address] * (ABNORMAL) Loco-Llanos Virus Antibodies (12/20/2023 12:29 PM EDT) [facility] EBNA Antibodies Positive(A) Negative 12/24/2023 11:49 AM EDT [facility] EBV (VCA) IgG Ab Positive(A) Negative 12/24/2023 11:49 AM EDT [facility] EBV (VCA) IgM Ab Negative Negative 12/24/2023 11:49 AM EDT [facility] EBV Interp Past EBV infection. 12/24/2023 11:49 AM EDT [facility] Blood VENOUS BLOOD SPECIMEN / Unknown Venipuncture / Unknown 12/20/2023 12:29 PM EDT 12/20/2023 12:29 PM EDT [facility] - 12/24/2023 11:49 AM EDT In [...] EBV. Evin Little MD IMMUNOLOGY ORDERABL ES [facility] [place] [address] * CMV Antibody, IgM (12/20/2023 12:29 PM EDT) CMV IgM Negative Negative 12/24/2023 11:57 AM EDT [facility] Blood VENOUS BLOOD SPECIMEN / Unknown Venipuncture / Unknown 12/20/2023 12:29 PM EDT 12/20/2023 12:29 PM EDT Evin Little MD IMMUNOLOGY ORDERABL ES [facility] [place] [address] * CMV Antibody, IgG (12/20/2023 12:29 PM EDT) CMV IgG Negative Negative 12/24/2023 11:48 AM EDT [facility] Blood VENOUS BLOOD SPECIMEN / Unknown Venipuncture / Unknown 12/20/2023 12:29 PM EDT 12/20/2023 12:29 PM EDT Evin Little MD IMMUNOLOGY ORDERABL ES [facility] [place] [address] * Hepatitis B Core Antibody, Total (12/20/2023 12:29 PM EDT) Hepatitis B Core Antibody Negative Negative 12/20/2023 1:38 PM EDT [facility] Blood VENOUS BLOOD SPECIMEN / Unknown Venipuncture / Unknown 12/20/2023 12:29 PM EDT 12/20/2023 12:29 PM EDT Evin Little MD CHEMISTRY ORDERABLE S Performing Organization Address [facility]/ZIP Co de Phone Number [facility] [place] [address] * Hepatitis B Surface Antibody (12/20/2023 12:29 PM EDT) Hepatitis B Surface Antibody, Quantitative <3.5 IU/L 12/20/2023 6:11 PM EDT [facility] Comment: Unvaccinated: < 8.5 IU/L Vaccinated: >= 11.5 IU/L Hepatitis B Surface Antibody Negative 12/20/2023 6:11 PM EDT [facility] Comment: Patient is presumed to be not vaccinated or immune to HBV infection. Expected Results: Vaccinated: Positive Unvaccinated: Negative Blood VENOUS BLOOD SPECIMEN / Unknown Venipuncture / Unknown 12/20/2023 12:29 PM EDT 12/20/2023 12:29 PM EDT Evin Little MD CHEMISTRY ORDERABLE S Performing Organization Address City/[facility]/ZIP Co de Phone Number [facility] [place] [address] * Lactate Dehydrogenase (12/20/2023 12:29 PM EDT) Lactate Dehydrogenase 131 110 - 220 unit/L 12/20/2023 1:08 PM EDT [facility] Blood VENOUS BLOOD SPECIMEN / Unknown Venipuncture / Unknown 12/20/2023 12:29 PM EDT 12/20/2023 12:29 PM EDT Evin Little MD CHEMISTRY ORDERABLE S [facility] [place] [address] * (ABNORMAL) Comprehensive metabolic panel (12/20/2023 12:29 PM EDT) Pathologist [facility] Glucose 116 65 - 199 mg/dL 12/20/2023 1:08 PM EDT [facility] Comment:Glucose Concentratio n >=200 mg/dL plus symptoms is consistent with Diabetes Mellitus. Blood Urea Nitrogen 23(H) 8 - 18 mg/dL 12/20/2023 1:08 PM EDT [facility] Creatinine 0.88 0.70 - 1.20 mg/dL 12/20/2023 1:08 PM EDT [facility] Sodium 139 135 - 145 mMol/L 12/20/2023 1:08 PM EDT [facility] Potassium 3.9 3.5 - 5.0 mMol/L 12/20/2023 1:08 PM EDT [facility] Chloride 101 98 - 107 mMol/L 12/20/2023 1:08 PM EDT [facility] Carbon Dioxide 27 22 - 31 mMol/L 12/20/2023 1:08 PM EDT [facility] Anion Gap 11 5 - 15 mMol/L 12/20/2023 1:08 PM EDT [facility] Calcium 9.7 8.5 - 10.5 mg/dL 12/20/2023 1:08 PM EDT [facility] Protein, Total 7.0 6.1 - 8.0 g/dL 12/20/2023 1:08 PM EDT [facility] Albumin 4.3 3.2 - 5.2 g/dL 12/20/2023 1:08 PM EDT [facility] Aspartate Aminotransferase 25 <=30 unit/L 12/20/2023 1:08 PM EDT [facility] Alanine Aminotransferase 23 0 - 30 unit/L 12/20/2023 1:08 PM EDT [facility] Alkaline Phosphatase 96 35 - 105 unit/L 12/20/2023 1:08 PM EDT [facility] Bilirubin, Total 0.7 <=1.3 mg/dL 12/20/2023 1:08 PM EDT [facility] Est Glomerular Filtration Rate - Female 66 mL/min/1. 73 m?? 12/20/2023 1:08 PM EDT [facility] Comment: This patient's [...] Fasting Status No 12/20/2023 1:08 PM EDT [facility] Blood VENOUS BLOOD SPECIMEN / Unknown Venipuncture / Unknown 12/20/2023 12:29 PM EDT 12/20/2023 12:29 PM EDT Evin Little MD CHEMISTRY ORDERABLE S [facility] [place] [address] * (ABNORMAL) CBC (with Diff) (12/20/2023 12:29 PM EDT) White Blood Cell 6.24 4.00 - 9.50 x10(3)/[facility] 12/20/2023 12:51 PM [facility] Red Blood Cell 4.24 4.00 - 5.21 x10(6)/mcL 12/20/2023 12:51 PM [facility] Hemoglobin 12.7 11.7 - 15.5 g/dL 12/20/2023 12:51 PM [facility] Hematocrit 38.9 35.7 - 45.8 % 12/20/2023 12:51 PM [facility] Mean Cell Volume 91.7 82.6 - 94.4 fL 12/20/2023 12:51 PM [facility] Mean Cell Hemoglobin 30.0 27.1 - 32.0 pg 12/20/2023 12:51 PM [facility] Mean Cell Hemoglobin Concentration 32.6 31.7 - 35.0 g/dL 12/20/2023 12:51 PM [facility] Platelet 86(L) 145 - 357 x10(3)/[facility] 12/20/2023 12:51 PM [facility] Mean Platelet Volume 11.7 7.6 - 12.9 fL 12/20/2023 12:51 PM [facility] RDW Standard Deviation 45.6 37.0 - 46.0 fL 12/20/2023 12:51 PM [facility] RDW coefficient of variation 13.5 11.5 - 14.1 % 12/20/2023 12:51 PM [facility] NRBC% auto 0.0 % 12/20/2023 12:51 PM [facility] NRBC Absolute 0.00 0.00 - 0.00 x10(3)/mcL 12/20/2023 12:51 PM [facility] Neutrophil % 64.6 % 12/20/2023 12:51 PM [facility] Neutrophil Absolute (ANC) - Automated 4.03 1.70 - 6.10 x10(3)/[facility] 12/20/2023 12:51 PM EDT [facility] Lymph % 22.4 % 12/20/2023 12:51 PM EDT [facility] Lymph Absolute 1.40 0.90 - 3.20 x10(3)/mcL 12/20/2023 12:51 PM EDT [facility] Monocyte % 11.9 % 12/20/2023 12:51 PM EDT [facility] Monocyte Absolute 0.74 0.30 - 0.90 x10(3)/[facility] 12/20/2023 12:51 PM EDT [facility] Eos % 0.6 % 12/20/2023 12:51 PM EDT [facility] Eos Absolute 0.04 0.00 - 0.40 x10(3)/[facility] 12/20/2023 12:51 PM EDT [facility] Basophil % 0.2 % 12/20/2023 12:51 PM EDT [facility] Baso Absolute 0.01 0.00 - 0.10 x10(3)/[facility] 12/20/2023 12:51 PM EDT [facility] Immature Gran % 0.3 % 12:51 PM EDT [facility] Immature Gran Absolute 0.02 0.00 - 0.04 x10(3)/[facility] 12/20/2023 12:51 PM EDT [facility] Blood VENOUS BLOOD SPECIMEN / Unknown Venipuncture / Unknown 12/20/2023 12:29 PM EDT 12/20/2023 12:29 PM EDT Evin Little MD HEMATOLOGY ORDERABL ES [facility] [place] [address] documented in this encounter Visit Diagnoses Diagnosis Thrombocytopenia Thrombocytopenia, unspecified documented in this encounter Care Teams Otr Truck Driver Relationship Specialty Start Date End Date Aysha Johnson MD [address] [place] [address] PCP - General Family Medicine 12/12/23 documented as of this encounter
--- OUTSIDE RECORDS SUMMARY | 2024-04-20 15:51 | XMS_ITS | Encounter Summary ---
[place] [address] Care Team Providers Care Manager Customs Name Role Phone Salome Mcarthur APRN Primary Care Provider [phone] Reason for Visit * Diagnostic Test (Routine) - Closed Specialty Diagnoses / Procedures Referred By Jose bermudez Referred To Contact Radiology Diagnoses Lung nodule Procedures NM PET CT Skull Base to Mid-thigh Aysha Johnson MD [address] [place] [address] [place] [address] Referral ID Status Reason Start Date Expiration Date V isits Requested Visits Authorized [id number] Closed Specialty Service Requested 10/08/2023 04/09/2025 1 1 Encounter Details Date Type Department Care Team (Latest Contact Info) Description 10/24/2023 11:12 AM EDT - 10/24/2023 11:59 PM EDT Hospital Encounter [place] [phone] Aysha Johnson MD [address] [place] [address] Discharge Disposition: Home Social History [...] directed. 05/02/2020 fluticasone propionate (FLONASE) 50 mcg/actuation [place], Suspension 1 spray daily. pramipexole (MIRAPEX) 0.125 [...] 04/28/2024 11:00 AM EST Appointment [place] [phone] Molly Cui, [facility] [place] [address] 04/28/2024 2:00 PM EST Office Visit [place] [phone] Molly Cui, [facility] [place] [address] documented as of this encounter Procedures Procedure Name Priority Date/Time Associated Diagnosis Comments NM PET CT SKULL BASE TO MID-THIGH ([facility]) Routine 10/24/2023 12:50 PM EDT Lung nodule POCT GLUCOSE Routine 10/24/2023 11:33 AM EDT documented in this encounter Results * POCT Glucose (10/24/2023 11:33 AM EDT) Glucose, POC 108 65 - 199 mg/dL [facility] Comment: Supplemental ranges: <140 mg/dL before meals <180 mg/dL all other times of the day Blood 10/24/2023 11:3 3 AM EDT 10/24/2023 11:33 AM EDT Aysha Johnson MD POINT OF [place] [address] documented in this encounter Visit Diagnoses Not on filedocumented in this encounter Care Teams Manager Customs Relationship Specialty Start Date End Date Salome Mcarthur, [employer] [address] [place] [address] PCP - General Family Medicine 05/30/15 12/11/23 documented as of this encounter
--- OUTSIDE RECORDS SUMMARY | 2024-04-20 15:51 | XMS_ITS | Encounter Summary ---
[place] [address] Care Team Providers Care Ship'S Electronic Warfare Officer Name Role Phone Salome Mcarthur APRN Primary Care Provider [phone] Reason for Referral * Consultation (Routine) - Closed Specialty Diagnoses / Procedures Referred By Contac t Referred To Contact Hematology and Oncology Diagnoses Thrombocytopenia Leland Ortega MD [address] [place] [address] [facility] [address] [place] [address] Referral ID Status Reason Start Date Expiration Date V isits Requested Visits Authorized [id number] Closed Consult, Test & Treat 12/03/2023 12/02/2024 1 1 Encounter Details Date Type Department Care Team (Late Contact Info) Description 12/03/2023 Transcribe Orders eDH Incoming Referrals [phone] Leland Ortega MD [address] [place], [place] [address] Thrombocytopenia Social History Tobacco Use Types Packs/Day [...] 04/28/2024 11:00 AM EST [place] [address] Molly Cui, [facility] [place] [address] 04/28/2024 2:00 PM EST Office [place] [address] Molly Cui, [facility] [place] [address] Scheduled Referrals Name Type Priority Associated Diagnoses Order Schedule Referral to Hematology and Oncology Outpatient Referral Routine Thrombocytopenia Ordered: 12/03/2023 documented as of this encounter Visit Diagnoses Diagnosis Thrombocytopenia Thrombocytopenia, unspecified documented in this encounter Care Teams Ship'S Electronic Warfare Officer Relationship Specialty Start Date End Date Salome Mcarthur [employer] [address] [place] [address] PCP - General Family Medicine 05/30/15 12/11/23 documented as of this encounter
--- OUTSIDE RECORDS SUMMARY | 2024-04-20 15:51 | XMS_ITS | Encounter Summary ---
Author Organization [facility] [place] [address] Care Team Providers Care Finance Mgr Name Role Phone Salome Mcarthur APRN Primary Care Provider [phone] Reason for Visit * Reason Comments Medication Refill Encounter Details Date Type Department Care Team (Late st Contact Info) Description 10/23/2023 [place] [phone] Molly Cui [facility] [place] [address] Portal hypertension Social History Tobacco Use Types [...] 04/28/2024 11:00 AM [place] [phone] Molly Cui [facility] [place] [address] 04/28/2024 2:00 PM EST Office [place] [phone] Molly Cui [facility] [place] [address] documented as of this encounter Visit Diagnoses Diagnosis Portal hypertension documented in this encounter Care Teams Finance Mgr Relationship Specialty Start Date End Date Salome Mcarthur APRN [facility] [address] [place] [address] PCP - General Family Medicine 05/30/15 12/11/23 documented as of this encounter
--- OUTSIDE RECORDS SUMMARY | 2024-04-20 15:51 | XMS_ITS | Encounter Summary ---
Author Organization [place] [address] Care Team Providers Care Calender Tender Name Role Phone Aysha Johnson MD Primary Care Provider [phone] Reason for Visit * Diagnostic Test (Routine) - Closed Specialty Diagnoses / Procedures Referred By Contac t Referred To Contact Radiology Diagnoses Chest pain on breathing Procedures NM Pharmacologic Stress and Rest Myocardial Perfusion NM Exercise Stress and Rest Myocardial Perfusion Jac Cheng MD [facility] [place] [address] [facility] [place] [address] Referral ID Status Reason Start Date Expiration Date V isits Requested Visits Authorized [id number] Closed Specialty Service Requested 12/10/2023 06/08/2025 1 1 Encounter Details Date Type Department Care Team (Latest Contact Info) Description 12/20/2023 9:41 AM EDT - 12/20/2023 9:43 AM EDT Hospital En[place] [address] Rebeka Orosco MD [facility] [place] [address] Discharge Disposition: Home Social History Tobacco Use Types Packs/Day Years Used Date Smoking Tobacco: Never Smokeless Tobacco: Never Alcohol Use Standard Drinks/Week Comments Yes 0 (1 standard drink = 0.6 oz pur e alcohol) once per year [facility] Inpatient Questions Answer Date Recorded [...] type, unspecified whether angina present, unspecified whether alutiiq or transplanted heart Place 1 tablet under the tongue every 5 minutes as needed for Chest pain. 25 tablet 12 12/13/2023 ranolazine ER (Ranexa) 500 mg ER 12 hr tabletIndications:Luis nary artery disease, unspecified vessel or lesion type, unspecified whether angina present, unspecified whether alutiiq or transplanted heart Take 1 tablet by mouth 2 times daily. 60 tablet 12/13/2023 isosorbide mononitrate CR (Imdur) 30 mg ER 24 hr tablet Take 30 mg by mouth 2 times daily. auyddmjpad-nabcdqd-mvu feine (Fiorinal) 50-325-40 mg tablet Take 1 [...] directed. 05/02/2020 fluticasone propionate (FLONASE) 50 mcg/actuation [place], Suspension 1 spray daily. pramipexole (MIRAPEX) 0.125 [...] 04/28/2024 11:00 AM EST Appointment [place] [address] Molly Cui, [facility] [place] [address] 04/28/2024 2:00 PM EST Office Visit [place] [phone] Molly Cui, [facility] [place] [address] documented as of this encounter Procedures Procedure Name Priority Date/Time Associated Diagnosis Comments NM PHARMACOLOGIC STRESS AND REST MYOCARDIAL PERFUSION Routine 12/20/2023 11:27 AM EDT Chest pain on breathing documented in this encounter Results * NM Pharmacologic Stress CT Component (12/20/2023 11:45 AM EDT) WORKSTATION ID [id number] [facility] Anatomical Region Laterality Modality Nuclear Medicine Impressions [...] questions please contact the health child care centre director that requested your imaging first. ? Electronically signed by: Ed Benavides MD, [facility] ([phone]), at 12/20/2023 1:52 PM Narrative 12/20/2023 1:52 [...] have questions please contactthe health child care centre director that requested your imaging first. Electronically signed by: Ed Benavides MD, [facility]([phone]), at 12/20/2023 1:52 PM Rebeka Orosco MD IM NM ORDERABLES * NM Pharmacologic Stress and Rest Myocardial Perfusion (12/20/2023 11:27 AM EDT) WORKSTATION ID [id number] [facility] Anatomical Region Laterality Modality Nuclear Medicine Impressions [...] questions please contact the health child care centre director that requested your imaging first. ? Electronically signed by: Ed Benavides MD, [facility] ([phone]), at 12/20/2023 1:52 PM Narrative 12/20/2023 1:52 [...] have questions please contactthe health child care centre director that requested your imaging first. Electronically signed by: Ed Benavides MD, [facility]([phone]), at 12/20/2023 1:52 PM Rebeka Orosco MD IMG NM ORDERABLES documented in this encounter Visit Diagnoses Not on filedocumented in this encounter Care Teams Calender Tender Relationship Specialty Start Date End Date Aysha Johnson MD [address] [place] [address] PCP - General Family Medicine 12/12/23 documented as of this encounter
--- OUTSIDE RECORDS SUMMARY | 2024-04-20 15:51 | XMS_ITS | Encounter Summary ---
[place] [address] Care Team Providers Care Marine Drafter Name Role Phone Salome Mcarthur APRN Primary Care Provider [phone] Reason for Referral * Diagnostic Test (Routine) - Closed Specialty Diagnoses / Procedures Referred By Contac t Referred To Contact Radiology Diagnoses Lung nodule Procedures NM PET CT Skull Base to Mid-thigh Ayhsa Johnson MD [address] [place] [address] [place] [address] Referral ID Status Reason Start Date Expiration Date V isits Requested Visits Authorized [id number] Closed Specialty Service Requested 10/08/2023 04/09/2025 1 1 Reason for Visit * Diagnostic Test (Routine) - Closed Specialty Diagnoses / Procedures Referred By Contac t Referred To Contact Radiology Diagnoses Lung nodule Procedures NM PET CT Skull Base to Mid-thigh Aysha Johnson MD [address] [place] [address] [place] [address] Referral ID Status Reason Start Date Expiration Date V isits Requested Visits Authorized [id number] Closed Specialty Service Requested 10/08/2023 04/09/2025 1 1 Encounter Details Date Type Department Care Team (Latest Contact Info) Description 10/24/2023 11:12 AM EDT - 10/24/2023 11:59 PM EDT Hospital Encounter [place] [address] Aysha Johnson MD [address] [place] [address] Lung nodule Discharge Disposition: Home Social History [...] directed. 05/02/2020 fluticasone propionate (FLONASE) 50 mcg/actuation [place], Suspension 1 spray daily. pramipexole (MIRAPEX) 0.125 [...] 04/28/2024 11:00 AM EST Appoint[place] [phone] Molly Cui, [facility] [address] 04/28/2024 2:00 PM EST Office Visit [place] [phone] Molly Cui, [facility] [address] documented as of this encounter Procedures Procedure Name Priority Date/Time Associated Diagnosis Comments NM PET CT SKULL BASE TO MID-THIGH ([facility]) Routine 10/24/2023 12:50 PM EDT Lung nodule documented in this encounter Results * NM PET CT Skull Base to Mid-thigh (10/24/2023 12:50 PM EDT) WORKSTATION ID [id number] RAD Anatomical Region Laterality Modality Positron Emissio [...] who have questions please contact the health long term care administrator that requested your imaging first. ? Electronically signed by: Hernan Winkler [facility] ([phone]), at 10/24/2023 3:59 PM Narrative 10/24/2023 3:59 PM EDT EXAMINATION: NM PET CT STANDARD SKULL BASE TO MID-THIGH CLINICAL HISTORY: lll nodule 2 cm (doubled in size); evaluate for malignancy R91.1, Solitary pulmonary nodule TECHNIQUE: Following IV injection of 30-nzjhyk-1-deoxyglucose (FDG) a standard uptake of approximately 60 [...] pulmonary nodule TECHNIQUE: Following IV injection of 82-yftaxp-8-deoxyglucose (FDG) astandard uptake of approximately 60 minutes, [...] patients who have questions please contactthe health long term care administrator that requested your imaging first. Electronically signed by: Hernan Winkler [facility] ([phone]),at 10/24/2023 3:59 PM Aysha Johnson MD IMG [...] Arm documented in this encounter Care Teams Marine Drafter Relationship Specialty Start Date End Date Salome Mcarthur, [employer] [address] [place] [address] PCP - General Family Medicine 05/30/15 12/11/23 documented as of this encounter
--- OUTSIDE RECORDS SUMMARY | 2024-04-20 15:51 | XMS_ITS | Encounter Summary ---
Author Organization [facility] Address [facility] [place] [address] Care Team Providers Care Gut Dropper Name Role Phone Aysha Johnson MD Primary Care Provider [phone] Reason for Visit * Diagnostic Test (Routine) - Closed Specialty Diagnoses / Procedures Referred By Contac t Referred To Contact Radiology Diagnoses Chest pain on breathing Procedures NM Pharmacologic Stress CT Component NM Exercise Stress CT Component NM Pharmacologic Stress and Rest Myocardial Perfusion [facility] Jac Cheng MD [facility] [place] [address] [facility] Nuclear Med [address] [place] [phone] Referral ID Status Reason Start Date Expiration Date V isits Requested Visits Authorized [id number] Closed Specialty Service Requested 12/06/2023 06/05/2025 1 1 Encounter Details Date Type Department Care Team (Latest Contact Info) Description 12/20/2023 9:44 AM EDT - 12/20/2023 12:14 PM EDT Hospital Encounter [place] [address] Rebeka Orosco MD [facility] [place] [address] Chest pain on breathing Discharge [...] type, unspecified whether angina present, unspecified whether kletsel dehe wintun or transplanted heart Place 1 tablet under the tongue every 5 minutes as needed for Chest pain. 25 tablet 12 12/13/2023 ranolazine ER (Ranexa) 500 mg ER 12 hr tabletIndications:Luis nary artery disease, unspecified vessel or lesion type, unspecified whether angina present, unspecified whether kletsel dehe wintun or transplanted heart Take 1 tablet by mouth 2 times daily. 60 tablet 12/13/2023 isosorbide mononitrate CR (Imdur) 30 mg ER 24 hr tablet Take 30 mg by mouth 2 times daily. ilcnwkdzqn-bkwmrfn-boc feine (Fiorinal) 50-325-40 mg tablet Take 1 [...] directed. 05/02/2020 fluticasone propionate (FLONASE) 50 mcg/actuation [place], Suspension 1 spray daily. pramipexole (MIRAPEX) 0.125 [...] 04/28/2024 11:00 AM [place] [phone] Molly Cui, [facility] [place] [address] 04/28/2024 2:00 PM EST Office [place] [phone] Molly Cui, [facility] [place] [address] documented as of this encounter Procedures Procedure Name Priority Date/Time Associated Diagnosis Comments NM PHARMACOLOGIC STRESS CT COMPONENT Routine 12/20/2023 11:45 AM EDT Chest pain on breathing documented in this encounter Results * NM Pharmacologic Stress CT Component (12/20/2023 11:45 AM EDT) WORKSTATION ID [id number] [facility] Anatomical Region Laterality Modality Nuclear [...] who have questions please contact the health urgent care that requested your imaging first. ? [...] patients who have questions please contactthe health urgent care that requested your imaging first. Rebeka Orosco [...] mCi documented in this encounter Care Teams Gut Dropper Relationship Specialty Start Date End Date Aysha Johnson MD [address] [place] [address] PCP - General Family Medicine 12/12/23 documented as of this encounter
--- OUTSIDE RECORDS SUMMARY | 2024-04-20 15:51 | XMS_ITS | Encounter Summary ---
Author Organization [facility] Address [facility] [place] [address] Care Team Providers Care Transportation Inspector Name Role Phone Aysha Johnson MD Primary Care Provider [phone] Reason for Visit * Reason Comments Advice Only * Consultation (Routine) - Closed Specialty Diagnoses / Procedures Referred By Contruth t Referred To Contact Hematology and Oncology Diagnoses Thrombocytopenia Leland Ortega MD [address] [place] [phone] [facility] Hem Onc [address] [place] [address] Referral ID Status Reason Start Date Expiration Date V isits Requested Visits Authorized [id number] Closed Consult, Test & Treat 12/03/2023 12/02/2024 1 1 Encounter Details Date Type Department Care Team (Late st Contact Info) Description 12/20/2023 1:00 PM EDT Office Visit Hematology [place] [address] Evin Little MD [facility] [place] [address] Thrombocytopenia Social History Tobacco Use Types Packs/Day Years Used Date Smoking Tobacco: Never Smokeless Tobacco: Never Alcohol Use Standard Drinks/Week Comments Yes 0 (1 standard drink = 0.6 oz pur e alcohol) once per year [facility] Inpatient Questions Answer Date Recorded Does [...] MULTIPLE performed by Leticia Ashraf MD at [facility] ENDOSCOPY PRO UPPER GI ENDOSCOPY, DIAGNOSTIC Bilateral 07/14/2015 EGD, UPPER GI ENDOSCOPY performed by Leticia Ashraf MD at [facility] ENDOSCOPY PRO UPPER GI ENDOSCOPY, DIAGNOSTIC N/A 09/17/2018 EGD, UPPER GI ENDOSCOPY performed by Juliette Chauhan MD at [facility] ENDOSCOPY PRO UPPER GI ENDOSCOPY, DIAGNOSTIC N/A 09/23/2019 EGD, UPPER GI ENDOSCOPY performed by Juliette Chauhan MD at [facility] ENDOSCOPY PRO UPPER GI ENDOSCOPY, DIAGNOSTIC N/A 09/26/2020 EGD, UPPER GI ENDOSCOPY performed by Braulio Bailey MD at [facility] ENDOSCOPY PRO UPPER GI ENDOSCOPY, DIAGNOSTIC N/A 01/31/2022 EGD, UPPER GI ENDOSCOPY performed by Leland Ramos MD at [facility] ENDOSCOPY PRO UPPER GI ENDOSCOPY, DIAGNOSTIC N/A 01/23/2023 EGD, UPPER GI ENDOSCOPY (WRVU 2.09) performed by Juliette Chauhan MD at [facility] ENDOSCOPY RECTOCELE REPAIR 08/2011 at [facility] AND BSO 1987 for endometriosis TUBAL LIGATION [...] DAILY atorvastatin (LIPITOR) 20 mg, Oral, DAILY trjjzzhwui-kouwqqu-qodktokn (Fiorinal) 50-325-40 mg tablet 1 tablet, Oral, [...] mg, DAILY fluticasone propionate (FLONASE) 50 mcg/actuation [place], Suspension 1 spray, DAILY gabapentin (NEURONTIN) 600 [...] Concern None Social History Narrative Lives in [place], [place] with her of 10 years. 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 Social Determinants of Health Financial Resource Strain: [...] above threshold for treatment; it would not globe changer recommendations for observation. Bone marrow aspiration [...] that I can appreciate as having a xrqe-qjwa-ynqd incidence of thrombocytopenia would be aspirin, for [...] PRN Evin Little MD Section of Hematology [facility] [employer] Greater than 45 minutes were spent on date of visit, including non-face to face time. Patient consents to use of [facility] portal for communication of results. This note was completed using [employer] Dictation technology. Please reach out if there are significant errors in fire fighters dispatcher that require clarification on my part. CC: MD Jordan Milner Michael G documented in this encounter Plan of Treatment Upcoming Encounters Date Type Department Care Team (Late st Contact Info) Description 04/28/2024 11:00 AM EST Appointment [place] [phone] Molly Cui, [facility] [place] [address] 04/28/2024 2:00 PM EST Office Visit [place] [phone] Molly Cui, [facility] [place] [address] documented as of this encounter Results * HIV Screen, 4th Generation ([employer]/CGP/APD/NLH) (12/20/2023 12:29 PM EDT) HIV Ab/Ag Screen Negative Negative 12/20/2023 1:[address] [facility] Comment:Low Risk of HIV Infe ction. Blood VENOUS BLOOD SPECIMEN / Unknown Venipuncture / Unknown 12/20/2023 12:29 PM EDT 12/20/2023 12:[address] [facility] - 12/20/2023 1:38 PM EDT [...] performed. Evin Little MD CHEMISTRY ORDERABLE S [facility] [place] [address] * Hepatitis C Antibody (12/20/2023 12:29 PM EDT) Pathologist [facility] Hepatitis C Antibody Negative Negative 12/20/2023 1:[address] [facility] Blood VENOUS BLOOD SPECIMEN / Unknown Venipuncture / Unknown 12/20/2023 12:29 PM EDT 12/20/2023 12:29 PM EDT Evin Little MD CHEMISTRY ORDERABLE S Performing Organization Address City/[facility]/ZIP Co de Phone Number [facility] [place] [address] * Hepatitis B Surface Antigen (12/20/2023 12:29 PM EDT) [facility] Hepatitis B Surface Antigen Negative Negative 12/20/2023 1:[address] [facility] Blood VENOUS BLOOD SPECIMEN / Unknown Venipuncture / Unknown 12/20/2023 12:29 PM EDT 12/20/2023 12:29 PM EDT Evin Little MD CHEMISTRY ORDERABLE S Performing Organization Address City/[facility]/ZIP Co de Phone Number [facility] [place] [address] * (ABNORMAL) Kamilla-Llanos Virus Antibodies (12/20/2023 12:29 PM EDT) [facility] EBNA Antibodies Positive(A) Negative 12/24/2023 11:[address] [facility] EBV (VCA) IgG Ab Positive(A) Negative 12/24/2023 11:[address] [facility] EBV (VCA) IgM Ab Negative Negative 12/24/2023 11:[address] [facility] EBV Interp Past EBV infection. 12/24/2023 11:[address] [facility] Blood VENOUS BLOOD SPECIMEN / Unknown Venipuncture / Unknown 12/20/2023 12:29 PM EDT 12/20/2023 12:[address] [facility] - 12/24/2023 11:49 AM EDT [...] MD IMMUNOLOGY ORDERABL ES Performing Organization Address City/[facility]/ZIP Co de Phone Number [facility] [place] [address] * CMV Antibody, IgM (12/20/2023 12:29 PM EDT) CMV IgM Negative Negative 12/24/2023 11:[address] [facility] Blood VENOUS BLOOD SPECIMEN / Unknown Venipuncture / Unknown 12/20/2023 12:29 PM EDT 12/20/2023 12:29 PM EDT Evin Little MD IMMUNOLOGY ORDERABL ES [facility] [place] [address] * CMV Antibody, IgG (12/20/2023 12:29 PM EDT) CMV IgG Negative Negative 12/24/2023 11:[address] [facility] Blood VENOUS BLOOD SPECIMEN / Unknown Venipuncture / Unknown 12/20/2023 12:29 PM EDT 12/20/2023 12:29 PM EDT Evin Little MD IMMUNOLOGY ORDERABL ES [facility] [place] [address] * Hepatitis B Core Antibody, Total (12/20/2023 12:29 PM EDT) Hepatitis B Core Antibody Negative Negative 12/20/2023 1:[address] [facility] Blood VENOUS BLOOD SPECIMEN / Unknown Venipuncture / Unknown 12/20/2023 12:29 PM EDT 12/20/2023 12:29 PM EDT Evin Little MD CHEMISTRY ORDERABLE S Performing Organization Address [facility] Co de Phone Number [facility] [place] [address] * Hepatitis B Surface Antibody (12/20/2023 12:29 PM EDT) Pathologist [facility] Hepatitis B Surface Antibody, Quantitative <3.5 IU/L 12/20/2023 6:[address] [facility] Comment: Unvaccinated: < 8.5 IU/L Vaccinated: >= 11.5 IU/L Hepatitis B Surface Antibody Negative 12/20/2023 6:[address] [facility] Comment: Patient is presumed to be not vaccinated or immune to HBV infection. Expected Results: Vaccinated: Positive Unvaccinated: Negative Blood VENOUS BLOOD SPECIMEN / Unknown Venipuncture / Unknown 12/20/2023 12:29 PM EDT 12/20/2023 12:29 PM EDT Evin Little MD CHEMISTRY ORDERABLE S Performing Organization Address City/[facility]/ZIP Co de Phone Number [facility] [place] [address] * Lactate Dehydrogenase (12/20/2023 12:29 PM EDT) Lactate Dehydrogenase 131 110 - 220 unit/L 12/20/2023 1:[address] [facility] Blood VENOUS BLOOD SPECIMEN / Unknown Venipuncture / Unknown 12/20/2023 12:29 PM EDT 12/20/2023 12:29 PM EDT Evin Little MD CHEMISTRY ORDERABLE S [facility] [place] [address] * (ABNORMAL) Comprehensive metabolic panel (12/20/2023 12:29 PM EDT) Glucose 116 65 - 199 mg/dL 12/20/2023 1:[address] [facility] Comment:Glucose Concentratio n >=200 mg/dL plus symptoms is consistent with Diabetes Mellitus. Blood Urea Nitrogen 23(H) 8 - 18 mg/dL 12/20/2023 1:[address] [facility] Creatinine 0.88 0.70 - 1.20 mg/dL 12/20/2023 1:[address] [facility] Sodium 139 135 - 145 mMol/L 12/20/2023 1:[address] [facility] Potassium 3.9 3.5 - 5.0 mMol/L 12/20/2023 1:[address] [facility] Chloride 101 98 - 107 mMol/L 12/20/2023 1:[address] [facility] Carbon Dioxide 27 22 - 31 mMol/L 12/20/2023 1:[address] [facility] Anion Gap 11 5 - 15 mMol/L 12/20/2023 1:[address] [facility] Calcium 9.7 8.5 - 10.5 mg/dL 12/20/2023 1:[address] [facility] Protein, Total 7.0 6.1 - 8.0 g/dL 12/20/2023 1:[address] [facility] Albumin 4.3 3.2 - 5.2 g/dL 12/20/2023 1:[address] [facility] Aspartate Aminotransferase 25 <=30 unit/L 12/20/2023 1:[address] [facility] Alanine Aminotransferase 23 0 - 30 unit/L 12/20/2023 1:[address] [facility] Alkaline Phosphatase 96 35 - 105 unit/L 12/20/2023 1:[address] [facility] Bilirubin, Total 0.7 <=1.3 mg/dL 12/20/2023 1:[address] [facility] Est Glomerular Filtration Rate - Female 66 mL/min/1. 73 m?? 12/20/2023 1:[address] [facility] Comment: This patient's estimated GFR [...] Fasting Status No 12/20/2023 1:[address] [facility] Blood VENOUS BLOOD SPECIMEN / Unknown Venipuncture / Unknown 12/20/2023 12:29 PM EDT 12/20/2023 12:29 PM EDT Evin Little MD CHEMISTRY ORDERABLE S [facility] [place] [address] * (ABNORMAL) CBC (with Diff) (12/20/2023 12:29 PM EDT) White Blood Cell 6.24 4.00 - 9.50 x10(3)/mcL 12/20/2023 12:[address] [facility] Red Blood Cell 4.24 4.00 - 5.21 x10(6)/mcL 12/20/2023 12:51 PM [facility] Hemoglobin 12.7 11.7 - 15.5 g/dL 12/20/2023 12:51 PM [facility] Hematocrit 38.9 35.7 - 45.8 % 12/20/2023 12:51 PM [facility] Mean Cell Volume 91.7 82.6 - 94.4 fL 12/20/2023 12:51 PM [facility] Mean Cell Hemoglobin 30.0 27.1 - 32.0 pg 12/20/2023 12:51 PM [facility] Mean Cell Hemoglobin Concentration 32.6 31.7 - 35.0 g/dL 12/20/2023 12:51 PM [facility] Platelet 86(L) 145 - 357 x10(3)/mcL 12/20/2023 12:51 PM [facility] Mean Platelet Volume 11.7 7.6 - 12.9 fL 12/20/2023 12:51 PM [facility] RDW Standard Deviation 45.6 37.0 - 46.0 fL 12/20/2023 12:51 PM [facility] RDW coefficient of variation 13.5 11.5 - 14.1 % 12/20/2023 12:51 PM [facility] NRBC% auto 0.0 % 12/20/2023 12:51 PM [facility] NRBC Absolute 0.00 0.00 - 0.00 x10(3)/mcL 12/20/2023 12:51 PM [facility] Neutrophil % 64.6 % 12/20/2023 12:51 PM [facility] Neutrophil Absolute (ANC) - Automated 4.03 1.70 - 6.10 x10(3)/mcL 12/20/2023 12:51 PM [facility] Lymph % 22.4 % 12/20/2023 12:51 PM [facility] Lymph Absolute 1.40 0.90 - 3.20 x10(3)/[facility] 12/20/2023 12:[address] [facility] Monocyte % 11.9 % 12/20/2023 12:[address] [facility] Monocyte Absolute 0.74 0.30 - 0.90 x10(3)/[facility] 12/20/2023 12:[address] [facility] Eos % 0.6 % 12/20/2023 12:[address] [facility] Eos Absolute 0.04 0.00 - 0.40 x10(3)/[facility] 12/20/2023 12:[address] [facility] Basophil % 0.2 % 12/20/2023 12:[address] [facility] Baso Absolute 0.01 0.00 - 0.10 x10(3)/[facility] 12/20/2023 12:[address] [facility] Immature Gran % 0.3 % 12:[address] [facility] Immature Gran Absolute 0.02 0.00 - 0.04 x10(3)/[facility] 12/20/2023 12:[address] [facility] Blood VENOUS BLOOD SPECIMEN / Unknown Venipuncture / Unknown 12/20/2023 12:29 PM EDT 12/20/2023 12:29 PM EDT Evin Little MD HEMATOLOGY ORDERABL ES [facility] [place] [address] documented in this encounter Visit Diagnoses Diagnosis Thrombocytopenia Thrombocytopenia, unspecified documented in this encounter Care Teams Transportation Inspector Relationship Specialty Start Date End Date Aysha Johnson MD [address] [place] [address] PCP - General Family Medicine 12/12/23 documented as of this encounter
--- OUTSIDE RECORDS SUMMARY | 2024-04-20 15:51 | XMS_ITS | Encounter Summary ---
Author Organization [facility] Address [facility] [address] Care Team Providers Care Ip Counsel Name Role Phone Salome Mcarhtur APRN Primary Care Provider [phone] Encounter Details Date Type Department Care Team (Late st Contact Info) Description 12/06/2023 Orders Only Cardiology at [address] [phone] Jac Cheng MD [facility] [place] [address] Chest pain on breathing (Primary Dx) Social History Tobacco Use Types Packs/Day Years Used Date Smoking Tobacco: Never Smokeless Tobacco: Never Alcohol Use Standard Drinks/Week Comments Yes 0 (1 standard drink = 0.6 oz pur e alcohol) once per year [facility] Inpatient Questions Answer Date Recorded Does [...] 04/28/2024 11:00 AM EST [place] [phone] Molly Cui APRN [facility] [place] [address] 04/28/2024 2:00 PM EST Office Visit [place] [address] Molly Cui APRN [facility] [place] [address] documented as of this encounter Results * Nuclear Pharmacologic Stress Cardiology (12/20/2023 11:37 AM EDT) Anatomical Region Laterality Modality Other Rebeka Orosco MD [facility] documented in this encounter Visit Diagnoses Diagnosis Chest pain on breathing- Primary Painful respiration documented in this encounter Care Teams Ip Counsel Relationship Specialty Start Date End Date Salome Mcarthur APRN [address] [place] [address] PCP - General Family Medicine 05/30/15 12/11/23 documented as of this encounter
--- OUTSIDE RECORDS SUMMARY | 2024-04-20 15:51 | XMS_ITS | Encounter Summary ---
Author Organization [facility] Address [facility] [place] [address] Care Team Providers Care Synthetic Gem Press Operator Name Role Phone Salome Mcarthur APRN Primary Care Provider [phone] Reason for Visit * Reason Comments Leg Swelling Encounter Details Date Type Department Care Team (Late st Contact Info) Description 12/06/2023 11:47 AM EDT - 12/06/2023 5:37 PM EDT Emergency [place] [address] Nicole Hollingsworth MD [facility] DR [place] [address] MARTÍNEZ (dyspnea on exertion); Exertional chest pain [...] sent through Care Everywhere. * Chest Pain (Nigerien) * SOB (Shortness of Breath) (Nigerien) documented in this encounter Medications at Time of Discharge Medication Sig Dispensed Refills Start Date End Date isosorbide mononitrate CR (Imdur) 30 mg ER 24 hr tablet Take 30 mg by mouth 2 times daily. qzptnqnoqm-wraxfqd-flz feine (Fiorinal) 50-325-40 mg tablet Take 1 [...] directed. 05/02/2020 fluticasone propionate (FLONASE) 50 mcg/actuation [place], Suspension 1 spray daily. pramipexole (MIRAPEX) 0.125 [...] she is being evaluated by cardiology at [facility] and recommended she start Lasix yesterday. She [...] questions please contact the health child care coordinator that requested your imaging first. Electronically signed by: Khloe Keith MD, [facility] ([phone]), at 12/06/2023 1:15 PM NM Pharmacologic Stress [...] for which she is being evaluated at [facility]. Over last 2 weeks her leg swelling has become acutely worse moving superiorly and now she has increasing abdominal girth and weight gain. She is now sleeping on 3 pillows at night becauseof her orthopnea and dyspneic even with conversation. She spoke with her surgical asst over the lastseveral days who recommended Lasix [...] wick placed for pt's comfort * Nicole Hollignsworth MD - 12/06/2023 1:50 PM EDT ED [...] to 3 pillows orthopnea. She has a surgical asst who started her on 10 mg of Lasix per day yesterday. She says her surgical asst thinks that she needs a cardiac catheterization. [...] primary care physician. Nicole Hollingsworth MD 12/06/23 2394 Nicole Hollingsworth MD 12/06/23 3753 * Jessica Luu MD - 12/06/2023 11:27 AM EDT Telehealth [id number] Note: The following documentation is provided in [...] 04/28/2024 11:00 AM EST Appointment [place] [address] Molly Cui APRN [facility] [place] [address] 04/28/2024 2:00 PM EST Office Visit [place] [phone] Molly Cui APRN [facility] [place] [place] [address] Scheduled Orders Name Type Priority Associated Diagnoses [...] Whole Blood (12/06/2023 5:00 PM EDT) Pathologist [facility] Lactate, Whole Blood 2.8(H) 0.5 - 2.2 mmol/L 12/06/2023 5:06 PM EDT [facility] Blood VENOUS BLOOD SPECIMEN / Unknown IP Care Team Draw / Unknown 12/06/2023 5:00 PM EDT 12/06/2023 5:04 PM EDT Nicole Hollingsworth MD CHEMISTRY ORDERABLE S [facility] [place] [address] * ECHO COMPLETE (12/06/2023 2:33 PM EDT) EF 60 HEARTLAB SYSTEM Anatomical Region Laterality Modality Cardiac Other 12/06/2023 1:50 PM EDT Narrative 12/06/2023 2:38 PM EDT 1 [place] [address] ? Echocardiogram Report Name: NICK MENDIETA Yue ?Study Date: 12/06/2023 01:50 PM ? Patient Location: ED ED15 1 : 1940 ? Height: 155 cm ? Account: [id number] Age: 83 yrs ? Weight: 64 kg Gender: Female ?BSA: 1.6 m2 Ordering Physician: NICOLE HOLLINGSWORTH Performed By: Megan Tamayo RDCS Reason For Study: MARTÍNEZ Exam Location: [facility]. Interpretation Summary Left ventricular size and systolic function are normal. Left ventricular ejection fraction is estimated visually at 60-65%. There are no segmental wall motion abnormalities. Right ventricular systolic function is normal. There is mild aortic stenosis. No prior studies for comparison Procedure Complete-25137. Image enhancement Optison was used for left [...] Note Sony Alicea MD - 12/06/2023 1 [place] [address] Echocardiogram Report Name: NICK MENDIETA Study Date: 401:50 PM Patient Location: [facility] 1 : 1940 Height: 155 cm Account: [id number] Age: 83 yrs Weight: 64 kg Gender: Female BSA: 1.6 m2 Ordering Physician: NICOLE HOLLINGSWORTH Performed By: Megan Tamayo RDCS Reason For Study: MARTÍNEZ Exam Location: [facility]. Interpretation Summary Left ventricular size and systolic function are normal. Left ventricularejection fraction is estimated visually at 60-65%. There are no segmental wallmotion abnormalities. Right ventricular systolic function is normal. There is mild aortic stenosis. No prior studies for comparison Procedure Complete-[id number]. Image enhancement Optison was used for left [...] (Generic) (12/06/2023 12:49 PM EDT) WORKSTATION ID [id number] RAD Anatomical Region Laterality Modality Chest N/A [...] questions please contact the health child care coordinator that requested your imaging first. ? Electronically signed by: Khloe Keith MD, [facility] ([phone]), at 12/06/2023 1:15 PM Narrative 12/06/2023 1:15 [...] have questions please contactthe health child care coordinator that requested your imaging first. Nicole Hollingsworth MD IMG DX ORDERABLES * (ABNORMAL) Blood Gas, Venous POC (12/06/2023 12:42 PM EDT) pH, Venous 7.38 7.32 - 7.42 12/06/2023 12:46 PM EDT [facility] PCO2, Venous 48 38 - 58 mmHg 12/06/2023 12:46 PM EDT [facility] PO2, Venous 25 16 - 65 mmHg 12/06/2023 12:46 PM EDT [facility] Bicarbonate, Venous 28.0 22 - 31 mmol/L 12/06/2023 12:46 PM EDT [facility] Base Excess, Venous 3.0 1.9 - 4.5 mmol/L 12/06/2023 12:46 PM EDT [facility] Hemoglobin, Venous 12.2 11.7 - 15.5 g/dL 12/06/2023 12:46 PM EDT [facility] Oxyhemoglobin, Venous 46.3 % 12/06/2023 12:46 PM EDT [facility] Carboxyhemoglobin, Venous 1.3 % 12/06/2023 12:46 PM EDT [facility] Comment: Nonsmokers: 0.5-1.5% COHB ?? Smokers: Variable ??but usually less than 10% ?? Toxic: 20-30% COHB ?? Lethal: Greater than 60% COHB Methemoglobin, Venous 0.1 <=1.5 % 12/06/2023 12:46 PM EDT [facility] Sodium, Venous 137 135 - 145 mmol/L 12/06/2023 12:46 PM EDT [facility] Potassium, Venous 3.7 3.5 - 5.0 mmol/L 12/06/2023 12:46 PM EDT [facility] Chloride, Venous 100 98 - 107 mmol/L 12/06/2023 12:46 PM EDT [facility] Glucose, Venous 226(H) 65 - 199 mg/dL 12/06/2023 12:46 PM EDT [facility] Comment:Glucose Concentratio n >=200 mg/dL plus symptoms is consistent with Diabetes Mellitus. Lactate, Venous 3.4(H) 0.5 - 2.2 mmol/L 12/06/2023 12:46 PM EDT [facility] Ionized Calcium, Venous 1.20 1.15 - 1.33 mmol/L 12/06/2023 12:46 PM EDT [facility] Blood VENOUS BLOOD SPECIMEN / Unknown 12/06/2023 12:42 PM EDT 12/06/2023 12:45 PM EDT Nicole Hollingsworth MD POINT OF CARE TEST ORDERABLES [facility] [place] [address] * (ABNORMAL) Hemoglobin A1c (12/06/2023 12:37 PM EDT) Hemoglobin A1c 7.6(H) 4.3 - 5.6 % 12/06/2023 4:27 PM EDT [facility] Comment: Per ADA guidelines, without [...] red blood cell turnover may not be vendor representatives of glycemic control. Reference Interval: 4.3 - 5.6% 5.7 - 6.4%: Consistent with prediabetes >=6.5%: Consistent with diagnosis of diabetes mellitus Estimated Average Glucose 12/06/2023 4:27 PM EDT [facility] Comment:Not Calculated. Blood VENOUS BLOOD SPECIMEN / Unknown IP Care Team Draw / Unknown 12/06/2023 12:37 PM EDT 12/06/2023 1:03 PM EDT Narrative [facility] - 12/06/2023 4:27 PM EDT Estimated average glucose (eAG) is calculated from the equation described in: Tristin CAST, Hermes J, Kathy R, et al. ??Translating the A1C assay into estimated average glucose values. ??Diabetes Care 2008:31(8):5274-3048. Additional resources are available on the ADA website (diabetes.org). Nicole Hollingsworth MD CHEMISTRY ORDERABLE S [facility] [place] [address] * Gold Tube HOLD (12/06/2023 12:37 PM EDT) Gold Hold Hold for Add-on 12/06/2023 3:01 PM EDT [facility] Blood VENOUS BLOOD SPECIMEN / Unknown IP Care Team Draw / Unknown 12/06/2023 12:37 PM EDT 12/06/2023 1:02 PM EDT Nicole Hollingsworth MD CHEMISTRY ORDERABLE S Performing Organization Address City/[facility]/ZIP Co de Phone Number [facility] [place] [address] * Blue Tube HOLD (12/06/2023 12:37 PM EDT) Blue Hold Hold for Add-on 12/06/2023 3:01 PM EDT [facility] Blood VENOUS BLOOD SPECIMEN / Unknown IP Care Team Draw / Unknown 12/06/2023 12:37 PM EDT 12/06/2023 1:03 PM EDT Nicole Hollingsworth MD HEMATOLOGY ORDERABL ES Performing Organization Address [facility] [place] [address] * Lavender Tube HOLD (12/06/2023 12:37 PM EDT) Lavender Hold Hold for Add-on 12/06/2023 3:01 PM EDT [facility] Blood VENOUS BLOOD SPECIMEN / Unknown IP Care Team Draw / Unknown 12/06/2023 12:37 PM EDT 12/06/2023 1:03 PM EDT Nicole Hollingsworth MD HEMATOLOGY ORDERABL ES Performing Organization Address City/[facility]/ZIP Co de Phone Number [facility] [place] [address] * EKG 12 Lead (12/06/2023 12:36 PM EDT) Ventricular rate 89 BPM MUSE SYSTEM Atrial Rate 89 BPM MUSE SYSTEM P-R Interval 208 ms MUSE SYSTEM QRS Duration 94 ms MUSE SYSTEM Q-T Interval 368 ms MUSE SYSTEM QTC Calculated (Bezet) 447 ms MUSE SYSTEM Calculated P [place] 61 degrees MUSE SYSTEM Calculated R [place] -26 degrees MUSE SYSTEM Calculated T [place] 14 degrees MUSE SYSTEM INTERPRETATION Normal sinus rhythm Normal ECG No previous ECGs available Confirmed by MD MENDOZA ARMIN ([id number]) on 12/06/2023 9:36:35 PM MUSE SYSTEM 12/06/2023 12:3 6 PM EDT 12/06/2023 9:36 PM EDT Jessica Luu MD ECG ORDERABLES MUSE SYSTEM * LDL Cholesterol, Direct (12/06/2023 12:36 PM EDT) LDL Cholesterol, Direct 44 mg/dL 12/06/2023 4:15 PM EDT [facility] Comment: Desirable: <100 mg/dL Above [...] EDT Nicole Hollingsworth MD CHEMISTRY ORDERABLE S [facility] [place] [address] * HDL/Cholesterol Profile (12/06/2023 12:36 PM EDT) Cholesterol, Total 103 mg/dL 12/06/2023 4:15 PM EDT [facility] Comment: Desirable: < 200 mg/dL Borderline High: 200 - 239 mg/dL High: > or = 240 mg/dL HDL Cholesterol 50 mg/dL 4:15 PM EDT [facility] Comment:Female: High Risk: < 50 mg/dL Non-HDL Cholesterol 53 mg/dL 12/06/2023 4:15 PM EDT [facility] Comment: Desirable: <130 mg/dL Above Desirable: 130-159 mg/dL Borderline High: 160-189 mg/dL High: 190-219 mg/dL Very High: > or = 220 mg/dL Blood VENOUS BLOOD SPECIMEN / Unknown IP Care Team Draw / Unknown 12/06/2023 12:36 PM EDT 12/06/2023 1:03 PM EDT Narrative [facility] - 12/06/2023 4:15 PM EDT [...] ACC/AHA Guidelines (most recently Emy et al. [facility] 01/09/22): * For individuals with atherosclerotic cardiovascular [...] disease) Nicole Hollingsworth MD CHEMISTRY ORDERABLE S [facility] [place] [address] * Troponin-T, High Sensitivity 1 Hour (12/06/2023 12:36 PM EDT) [facility] Troponin-T, High Sensitivity 10 <=14 ng/L 12/06/2023 1:40 PM EDT [facility] Comment: This patient's troponin T [...] troponin value can be found in the [facility] Test Catalog Troponin - https://one-.testcatalog.org/catalogs/565/files/04932 Reference: Fourth [place] Definition of Myocardial Infarction. Journal of the [place] College of Cardiology 2018;72:6271-3663 Troponin-T, HS 1 hr delta 1 ng/L 12/06/2023 1:40 PM EDT [facility] Comment:The 1 hour Troponin T delta value is the absolute difference between the Troponin T concentrations of the initial and subsequent sample collected between 45 - 120 minutes following the initial collection. Blood VENOUS BLOOD SPECIMEN / Unknown IP Care Team Draw / Unknown 12/06/2023 12:36 PM EDT 12/06/2023 1:03 PM EDT Jessica Luu MD CHEMISTRY ORDERABLES Performing Organization Address [facility] Co de Phone Number [facility] [place] [address] * (ABNORMAL) Magnesium (12/06/2023 11:43 AM EDT) Magnesium 0.49(L) 0.69 - 1.07 mMol/L 12/06/2023 1:01 PM EDT [facility] Blood VENOUS BLOOD SPECIMEN / Unknown IP Care Team Draw / Unknown 12/06/2023 11:43 AM EDT 12/06/2023 12:02 PM EDT Nicole Hollingsworth MD CHEMISTRY ORDERABLE S Performing Organization Address City/[facility]/ZIP Co de Phone Number [facility] [place] [address] * pro-Brain Natriuretic Peptide (12/06/2023 11:43 AM EDT) NT-proBNP 266 <=449 pg/mL 12/06/2023 1:01 PM EDT [facility] Blood VENOUS BLOOD SPECIMEN / Unknown IP Care Team Draw / Unknown 12/06/2023 11:43 AM EDT 12/06/2023 12:02 PM EDT Nicole Hollingsworth MD CHEMISTRY ORDERABLE S Performing Organization Address City/[facility]/ZIP Co de Phone Number [facility] [place] [address] * Gold Tube HOLD (12/06/2023 11:43 AM EDT) Gold Hold Hold for Add-on 12/06/2023 2:01 PM EDT [facility] Blood VENOUS BLOOD SPECIMEN / Unknown 12/06/2023 11:43 AM EDT 12/06/2023 12:03 PM EDT Jessica Luu MD CHEMISTRY ORDERABLES [facility] [place] [address] * Blue Tube HOLD (12/06/2023 11:43 AM EDT) Blue Hold Hold for Add-on 12/06/2023 2:01 PM EDT [facility] Blood VENOUS BLOOD SPECIMEN / Unknown 12/06/2023 11:43 AM EDT 12/06/2023 12:03 PM EDT Jessica Luu MD HEMATOLOGY ORDERABLE S [facility] [place] [address] * Troponin-T, High Sensitivity (12/06/2023 11:43 AM EDT) Troponin-T, High Sensitivity Initial 9 <=14 ng/L 12/06/2023 12:39 PM EDT [facility] Comment: This patient's troponin T [...] troponin value can be found in the [facility] Test Catalog Troponin - https://[employer].testcatalog.org/catalogs/565/files/05497 Reference: Fourth [place] Definition of Myocardial Infarction. Journal of the [place] College of Cardiology 2018;72:5573-0042 Blood VENOUS BLOOD SPECIMEN / Unknown IP Care Team Draw / Unknown 12/06/2023 11:43 AM EDT 12/06/2023 12:02 PM EDT Jessica Luu MD CHEMISTRY ORDERABLES [facility] [place] [address] * (ABNORMAL) Basic Metabolic Panel (12/06/2023 11:43 AM EDT) Glucose 248(H) 65 - 199 mg/dL 12/06/2023 12:39 PM EDT [facility] Comment:Glucose Concentratio n >=200 mg/dL plus symptoms is consistent with Diabetes Mellitus. Blood Urea Nitrogen 18 8 - 18 mg/dL 12/06/2023 12:39 PM EDT [facility] Creatinine 0.58(L) 0.70 - 1.20 mg/dL 12/06/2023 12:39 PM EDT [facility] Sodium 137 135 - 145 mMol/L 12/06/2023 12:39 PM EDT [facility] Potassium 4.1 3.5 - 5.0 mMol/L 12/06/2023 12:39 PM EDT [facility] Chloride 100 98 - 107 mMol/L 12/06/2023 12:39 PM EDT [facility] Carbon Dioxide 24 22 - 31 mMol/L 12/06/2023 12:39 PM EDT [facility] Anion Gap 13 5 - 15 mMol/L 12/06/2023 12:39 PM EDT [facility] Calcium 9.7 8.5 - 10.5 mg/dL 12/06/2023 12:39 PM EDT [facility] Est Glomerular Filtration Rate - Female 90 mL/min/1. 73 m?? 12/06/2023 12:39 PM EDT [facility] Comment: This patient's estimated [...] PM EDT Jessica Luu MD CHEMISTRY ORDERABLES [facility] [place] [address] * (ABNORMAL) CBC (with Diff) (12/06/2023 11:43 AM EDT) White Blood Cell 4.98 4.00 - 9.50 x10(3)/mc L 12/06/2023 12:15 PM EDT [facility] Red Blood Cell 3.98(L) 4.00 - 5.21 x10(6)/mc L 12/06/2023 12:15 PM EDT [facility] Hemoglobin 12.0 11.7 - 15.5 g/dL 12/06/2023 12:15 PM [facility] Hematocrit 37.2 35.7 - 45.8 % 12/06/2023 12:15 PM [facility] Mean Cell Volume 93.5 82.6 - 94.4 fL 12/06/2023 12:15 PM [facility] Mean Cell Hemoglobin 30.2 27.1 - 32.0 pg 12/06/2023 12:15 PM [facility] Mean Cell Hemoglobin Concentration 32.3 31.7 - 35.0 g/dL 12/06/2023 12:15 PM [facility] Platelet 78(L) 145 - 357 x10(3)/mc L 12/06/2023 12:15 PM [facility] Mean Platelet Volume 12.8 7.6 - 12.9 fL 12/06/2023 12:15 PM [facility] RDW Standard Deviation 46.0 37.0 - 46.0 fL 12/06/2023 12:15 PM [facility] RDW coefficient of variation 13.5 11.5 - 14.1 % 12/06/2023 12:15 PM [facility] NRBC% auto 0.0 % 12/06/2023 12:15 PM [facility] NRBC Absolute 0.00 0.00 - 0.00 x10(3)/mc L 12/06/2023 12:15 PM [facility] Neutrophil % 63.0 % 12/06/2023 12:15 PM [facility] Neutrophil Absolute (ANC) - Automated 3.14 1.70 - 6.10 x10(3)/mc L 12/06/2023 12:15 PM [facility] Lymph % 22.9 % 12/06/2023 12:15 PM [facility] Lymph Absolute 1.14 0.90 - 3.20 x10(3)/mc L 12/06/2023 12:15 PM [facility] Monocyte % 12.7 % 12/06/2023 12:15 PM EDT [facility] Monocyte Absolute 0.63 0.30 - 0.90 x10(3)/mc L 12/06/2023 12:15 PM EDT [facility] Eos % 1.0 % 12/06/2023 12:15 PM EDT [facility] Eos Absolute 0.05 0.00 - 0.40 x10(3)/mc L 12/06/2023 12:15 PM EDT [facility] Basophil % 0.2 % 12/06/2023 12:15 PM EDT [facility] Baso Absolute 0.01 0.00 - 0.10 x10(3)/mc L 12/06/2023 12:15 PM EDT [facility] Immature Gran % 0.2 % 12:15 PM EDT [facility] Immature Gran Absolute 0.01 0.00 - 0.04 x10(3)/mc L 12/06/2023 12:15 PM EDT [facility] Blood VENOUS BLOOD SPECIMEN / Unknown IP Care Team Draw / Unknown 12/06/2023 11:43 AM EDT 12/06/2023 12:02 PM EDT Jessica Luu MD HEMATOLOGY ORDERABLE S Performing Organization Address City/State/[facility] Co de Phone Number [facility] [place] [address] documented in this encounter Visit Diagnoses Diagnosis [...] RN) documented in this encounter Care Teams Synthetic Gem Press Operator Relationship Specialty Start Date End Date Salome Mcarthur, MANAGER CARDIAC [address] [place] [address] PCP - General Family Medicine 05/30/15 12/11/23 documented as of this encounter
--- OUTSIDE RECORDS SUMMARY | 2024-04-20 15:51 | XMS_ITS | Encounter Summary ---
Author Organization [facility] Address [facility] [place] [address] Care Team Providers Care Content Strategist Name Role Phone Aysha Johnson MD Primary Care Provider [phone] Reason for Visit * Reason Onset Date Comments Medication Refill 12/13/2023 Encounter Details Date Type Department Care Team (Late st Contact Info) Description 12/13/2023 Refill Cardiology at [address] [phone] Yonathan Gibson MD [facility] [place] [address] Medication Refill Social History Tobacco Use Types Packs/Day Years Used Date Smoking Tobacco: Never Smokeless Tobacco: Never Alcohol Use Standard Drinks/Week Comments Yes 0 (1 standard drink = 0.6 oz pur e alcohol) once per year [facility] Inpatient Questions Answer Date Recorded [...] 04/28/2024 11:00 AM EST [place] [phone] Molly Cui APRN [facility] [place] [address] 04/28/2024 2:00 PM EST Office [place] [address] Molly Cui APRN [facility] [place] [address] documented as of this encounter Visit Diagnoses Diagnosis Coronary artery disease, unspecified vessel or lesion type, unspecified whether angina present, unspecified whether [place] or transplanted heart documented in this encounter Care Teams Content Strategist Relationship Specialty Start Date End Date Aysha Johnson MD [address] [place] [address] PCP - General Family Medicine 12/12/23 documented as of this encounter
--- OUTSIDE RECORDS SUMMARY | 2024-04-20 15:51 | XMS_ITS | Encounter Summary ---
Author Organization [facility] [place] [address] Care Team Providers Care Ground Host/Hostess Name Role Phone Salome Mcarthur APRN Primary Care Provider [phone] Reason for Referral * Consultation (Routine) - Closed Specialty Diagnoses / Procedures Referred By Contac t Referred To Contact Cardiology Diagnoses JIMENEZ (dyspnea on exertion) Chest pain, unspecified type Aortic valve stenosis, etiology of cardiac valve disease unspecified Procedures CARDIAC CATHETERIZATION Leland Ortega MD [address] [place] [address] [facility] [address] [place] [id number] Referral ID Status Reason Start Date Expiration Date V isits Requested Visits Authorized [id number] Closed Consult, Test & Treat 11/27/2023 11/26/2024 1 1 Encounter Details Date Type Department Care Team (Latest Contact Info) Description 11/27/2023 Transcribe Orders eDH Incoming Referrals [phone] Leland Ortega MD [address] [place] [address] [address] [place], [place] [address] JIMENEZ (dyspnea on exertion); Chest pain, unspecified [...] 04/28/2024 11:00 AM [place] [address] Molly Cui, [facility] [place] [address] 04/28/2024 2:00 PM EST Office [place] [address] Molly Cui, [facility] [place] [address] Scheduled Referrals Name Type Priority Associated Diagnoses [...] unspecified documented in this encounter Care Teams Ground Host/Hostess Relationship Specialty Start Date End Date Salome Mcarthur APRN [address] [place] [address] PCP - General Family Medicine 05/30/15 12/11/23 documented as of this encounter
--- OUTSIDE RECORDS SUMMARY | 2024-04-20 15:51 | XMS_ITS | Encounter Summary ---
Author Organization [facility] [place] [address] Care Team Providers Care Coat Presser Name Role Phone Salome Mcarthur APRN Primary Care Provider [phone] Encounter Details Date Type Department Care Team [...] 11:00 AM EST Appoint[place] [address] Molly Cui SUPERVISOR METALIZING [facility] [place] [address] 04/28/2024 2:00 PM EST Office [place] [phone] Molly Cui APRN [facility] [place] [address] documented as of this encounter Visit Diagnoses Not on filedocumented in this encounter Care Teams Coat Presser Relationship Specialty Start Date End Date Salome Mcarthur APRN [address] [place] [address] PCP - General Family Medicine 05/30/15 12/11/23 documented as of this encounter
--- OUTSIDE RECORDS SUMMARY | 2024-04-20 15:51 | XMS_ITS | Encounter Summary ---
Author Organization [facility] Address [facility] [place] [address] Care Team Providers Care Spring Intern Name Role Phone Aysha Johnson MD Primary Care Provider [phone] Encounter Details Date Type Department Care Team (Late st Contact Info) Description 12/11/2023 Telephone Gastroenterology at [facility] [place] [phone] Jacque Gale RN Social History Tobacco Use Types Packs/Day Years Used Date Smoking Tobacco: Never Smokeless Tobacco: Never Alcohol Use Standard Drinks/Week Comments Yes 0 (1 standard drink = 0.6 oz pur e alcohol) once per year [facility] Inpatient Questions Answer Date Recorded Does [...] 04/28/2024 11:00 AM EST Appointment [place] [address] Molly Cui, [facility] [place] [address] 04/28/2024 2:00 PM EST Office Visit [place] [address] Molly Cui, [facility] [place] [address] documented as of this encounter Visit Diagnoses Not on filedocumented in this encounter Care Teams Spring Intern Relationship Specialty Start Date End Date Aysha Johnson MD [address] [place] [address] PCP - General Family Medicine 12/12/23 documented as of this encounter
--- OUTSIDE RECORDS SUMMARY | 2024-04-20 15:51 | XMS_ITS | Encounter Summary ---
[place] [address] Care Team Providers Care Water And Fire Technician Name Role Phone Salome Mcarthur APRN Primary Care Provider [phone] Reason for Referral * Consultation (Routine) - Closed Specialty Diagnoses / Procedures Referred By Contruth t Referred To Contact Hematology and Oncology Diagnoses Thrombocytopenia Leland Ortega MD [address] [place] [address] [facility] [address] [place] [address] Referral ID Status Reason Start Date Expiration Date V isits Requested Visits Authorized [id number] Closed Consult, Test & Treat 11/21/2023 11/20/2024 1 1 Encounter Details Date Type Department Care Team (Late st Contact Info) Description 11/21/2023 Transcribe Orders Hematology [place] [address] Leland Ortega MD [address] [place], [place] [address], [place] [address] Thrombocytopenia Social History Tobacco Use Types Packs/Day [...] 04/28/2024 11:00 AM EST [place] [address] Molly Cui, [facility] [place] [address] 04/28/2024 2:00 PM EST Office [place] [address] Molly Cui, [facility] [place] [address] Scheduled Referrals Name Type Priority Associated Diagnoses Order Schedule Referral to Hematology and Oncology Outpatient Referral Routine Thrombocytopenia Ordered: 11/21/2023 documented as of this encounter Visit Diagnoses Diagnosis Thrombocytopenia Thrombocytopenia, unspecified documented in this encounter Care Teams Water And Fire Technician Relationship Specialty Start Date End Date Salome Mcarthur [employer] C[employer] [address] [place] [address] PCP - General Family Medicine 05/30/15 12/11/23 documented as of this encounter
--- OUTSIDE RECORDS SUMMARY | 2024-04-20 15:51 | XMS_ITS | Encounter Summary ---
Author Organization [facility] [place] [address] Care Team Providers Care Software Validation Technician Name Role Phone Aysha Johnson MD Primary Care Provider [phone] Reason for Visit * Diagnostic Test (Routine) - Closed Specialty Diagnoses / Procedures Referred By Contac t Referred To Contact Radiology Diagnoses Chest pain on breathing Procedures NM Pharmacologic Stress and Rest Myocardial Perfusion NM Exercise Stress and Rest Myocardial Perfusion Jac Cheng MD [facility] [address] [facility] [place] [address] Referral ID Status Reason Start Date Expiration Date V isits Requested Visits Authorized [id number] Closed Specialty Service Requested 12/10/2023 06/08/2025 1 1 Encounter Details Date Type Department Care Team (Latest Contact Info) Description 12/20/2023 9:40 AM EDT Hospital Encounter [place] [address] Rebeka Orosco MD [facility] [place] [address] Discharge Disposition: Home Social History Tobacco Use Types Packs/Day Years Used Date Smoking Tobacco: Never Smokeless Tobacco: Never Alcohol Use Standard Drinks/Week Comments Yes 0 (1 standard drink = 0.6 oz pur e alcohol) once per year [facility] Inpatient Questions Answer Date Recorded Does [...] type, unspecified whether angina present, unspecified whether big [place] or transplanted heart Place 1 tablet under the tongue every 5 minutes as needed for Chest pain. 25 tablet 12 12/13/2023 ranolazine ER (Ranexa) 500 mg ER 12 hr tabletIndications:Luis nary artery disease, unspecified vessel or lesion type, unspecified whether angina present, unspecified whether [place] or transplanted heart Take 1 tablet by mouth 2 times daily. 60 tablet 12/13/2023 isosorbide mononitrate CR (Imdur) 30 mg ER 24 hr tablet Take 30 mg by mouth 2 times daily. jcczjoccnh-uoonlol-cix feine (Fiorinal) 50-325-40 mg tablet Take 1 [...] directed. 05/02/2020 fluticasone propionate (FLONASE) 50 mcg/actuation [place], Suspension 1 spray daily. pramipexole (MIRAPEX) 0.125 [...] 04/28/2024 11:00 AM [place] [address] Molly Cui, [facility] [place] [address] 04/28/2024 2:00 PM EST [place] [phone] Molly Cui, [facility] [place] [address] documented as of this encounter Procedures Procedure Name Priority Date/Time Associated Diagnosis Comments NM PHARMACOLOGIC STRESS AND REST MYOCARDIAL PERFUSION Routine 12/20/2023 11:27 AM EDT Chest pain on breathing documented in this encounter Results * NM Pharmacologic Stress CT Component (12/20/2023 11:45 AM EDT) Mdundo Signature WORKSTATION ID [id number] [facility] Anatomical Region Laterality Modality Nuclear Medicine [...] have questions please contact the health patient centered care specialist that requested your imaging first. ? Electronically signed by: Ed Benavides MD, [facility] ([phone]), at 12/20/2023 1:52 PM Narrative 12/20/2023 1:52 [...] who have questions please contactthe health patient centered care specialist that requested your imaging first. Electronically signed by: Ed Benavides MD, [facility]([phone]), at 12/20/2023 1:52 PM Rebeka Orosco MD [facility] [place] ORDERABLES * NM Pharmacologic Stress and Rest Myocardial Perfusion (12/20/2023 11:27 AM EDT) WORKSTATION ID [id number] [facility] Anatomical Region Laterality Modality Nuclear Medicine [...] have questions please contact the health patient centered care specialist that requested your imaging first. ? Electronically signed by: Ed Benavides MD, [facility] ([phone]), at 12/20/2023 1:52 PM Narrative 12/20/2023 1:52 [...] who have questions please contactthe health patient centered care specialist that requested your imaging first. Electronically signed by: Ed Benavides MD, [facility]([phone]), at 12/20/2023 1:52 PM Rebeka Orosco MD IMG [place] ORDERABLES documented in this encounter Visit Diagnoses Not on filedocumented in this encounter Care Teams Software Validation Technician Relationship Specialty Start Date End Date Aysha Johnson MD [address] [place] [address] PCP - General Family Medicine 12/12/23 documented as of this encounter
--- OUTSIDE RECORDS SUMMARY | 2024-04-20 15:51 | XMS_ITS | Encounter Summary ---
Author Organization [facility] Address [facility] [place] [address] Care Team Providers Care Bench Worker Helper Name Role Phone Aysha Johnson MD Primary Care Provider [phone] Reason for Visit * Consultation (Routine) - Closed Specialty Diagnoses / Procedures Referred By Contruth t Referred To Contact Cardiology Diagnoses JIMENEZ (dyspnea on exertion) Chest pain, unspecified type Aortic valve stenosis, etiology of cardiac valve disease unspecified Procedures CARDIAC CATHETERIZATION Leland Ortega MD [address] [place] [address] [facility] Cardiology [address] [place] [phone] Referral ID Status Reason Start Date Expiration Date V isits Requested Visits Authorized [id number] Closed Consult, Test & Treat 11/27/2023 11/26/2024 1 1 Encounter Details Date Type Department Care Team (Late st Contact Info) Description 12/13/2023 10:00 AM EDT Office Visit Cardiology at [address] [address] oYnathan Gibson MD [facility] [address] CARDIOLOGY [place], [place] [phone] Coronary artery disease, unspecified vessel or lesion type, unspecified whether angina present, unspecified whether eagle or transplanted heart Social History Tobacco Use [...] from the original note were not included. [facility] [place] [address] CARDIOLOGY OUTPATIENT PROGRESS NOTE PRIMARY CARE PROVIDER: Aysha Johnson MD REFERRING PROVIDER: Aysha Johnson PROBLEM LIST: Patient Active Problem List Diagnosis Hepatic cirrhosis Added automatically from request for surgery [id number] NAFLD (nonalcoholic fatty liver disease) Mixed incontinence Bladder cancer S/P hysterectomy Vaginal lesion MEDICATIONS: Current Outpatient Medications Medication Sig Dispense Refill jieyipnsfc-xxqieuq-tfgfimwt (Fiorinal) 50-325-40 mg tablet Take 1 tablet [...] as directed. fluticasone propionate (FLONASE) 50 mcg/actuation [place], Suspension 1 spray daily. pramipexole (MIRAPEX) 0.125 [...] on file Social History Narrative Lives in [place], [place] with her of 10 years. She [...] Abdomen: Nondistended. Soft. Nontender. Extremities: No edema. POLICE OFFICER CRIME PREVENTION: Normal mentation. Psych: Appropriate affect. Labs: Lab [...] 04/28/2024 11:00 AM [place] [address] Molly Cui [facility] [place] [address] 04/28/2024 2:00 PM EST Office [place] [address] Molly Cui, [facility] [place] [address] Scheduled Orders Name Type Priority Associated Diagnoses Orde r Schedule EKG 12 Lead ECG Routine Coronary artery disease, unspecified vessel or lesion type, unspecified whether angina present, unspecified whether eagle or transplanted heart Expected: 12/13/2023, Expires: 06/13/2024 documented as of this encounter Visit Diagnoses Diagnosis Coronary artery disease, unspecified vessel or lesion type, unspecified whether angina present, unspecified whether eagle or transplanted heart documented in this encounter Care Teams Bench Worker Helper Relationship Specialty Start Date End Date Aysha Johnson MD [address] [place] [address] PCP - General Family Medicine 12/12/23 documented as of this encounter
--- OUTSIDE RECORDS SUMMARY | 2024-04-20 15:51 | XMS_ITS | Encounter Summary ---
Author Organization [facility] [place] [address] Care Team Providers Care Furrier Designer Name Role Phone Aysha Johnson MD Primary Care Provider [phone] Reason for Visit * Diagnostic Test (Routine) - Closed Specialty Diagnoses / Procedures Referred By Contac t Referred To Contact Radiology Diagnoses Chest pain on breathing Procedures NM Pharmacologic Stress and Rest Myocardial Perfusion NM Exercise Stress and Rest Myocardial Perfusion Jac Cheng MD [facility] [place] [address] [facility] [place] [address] Referral ID Status Reason Start Date Expiration Date V isits Requested Visits Authorized [id number] Closed Specialty Service Requested 12/10/2023 06/08/2025 1 1 Encounter Details Date Type Department Care Team (Latest Contact Info) Description 12/20/2023 9:39 AM EDT Hospital Encounter [place] [address] Rebeka Orosco MD [facility] [place] [address] Chest pain on breathing Discharge Disposition: Home Social History Tobacco Use Types Packs/Day Years Used Date Smoking Tobacco: Never Smokeless Tobacco: Never Alcohol Use Standard Drinks/Week Comments Yes 0 (1 standard drink = 0.6 oz pur e alcohol) once per year [facility] Inpatient Questions Answer Date Recorded Does [...] type, unspecified whether angina present, unspecified whether [place] or transplanted heart Place 1 tablet under the tongue every 5 minutes as needed for Chest pain. 25 tablet 12 12/13/2023 ranolazine ER (Ranexa) 500 mg ER 12 hr tabletIndications:Luis nary artery disease, unspecified vessel or lesion type, unspecified whether angina present, unspecified whether [place] or transplanted heart Take 1 tablet by mouth 2 times daily. 60 tablet 12/13/2023 isosorbide mononitrate CR (Imdur) 30 mg ER 24 hr tablet Take 30 mg by mouth 2 times daily. wiybjplcat-hyvyecm-xok feine (Fiorinal) 50-325-40 mg tablet Take 1 [...] directed. 05/02/2020 fluticasone propionate (FLONASE) 50 mcg/actuation [place], Suspension 1 spray daily. pramipexole (MIRAPEX) 0.125 [...] 04/28/2024 11:00 AM EST [place] [address] Molly Cui, [facility] [place] [address] 04/28/2024 2:00 PM EST Office [place] [address] Molly Cui, [facility] [address] documented as of this encounter Procedures Procedure Name Priority Date/Time Associated Diagnosis Comments NM PHARMACOLOGIC STRESS AND REST MYOCARDIAL PERFUSION Routine 12/20/2023 11:27 AM EDT Chest pain on breathing documented in this encounter Results * NM Pharmacologic Stress and Rest Myocardial Perfusion (12/20/2023 11:27 AM EDT) WORKSTATION ID [id number] [facility] Anatomical Region Laterality Modality Nuclear Medicine Impressions [...] who have questions please contact the health family day care worker that requested your imaging first. ? Narrative [...] patients who have questions please contactthe health family day care worker that requested [...] mCi documented in this encounter Care Teams Furrier Designer Relationship Specialty Start Date End Date Aysha Johnson MD [address] [place] [address] PCP - General Family Medicine 12/12/23 documented as of this encounter
--- OUTSIDE RECORDS SUMMARY | 2024-04-20 15:52 | XMS_ITS | Encounter Summary ---
Author Organization [facility] Address [facility] [place] [address] Care Team Providers Care Pumper Hand Name Role Phone Salome Mcarthur APRN Primary Care Provider [phone] Encounter Details Date Type Department Care Team (Latest Contact Info) Description 06/06/2022 11:07 AM EST - 06/06/2022 11:59 PM [facility] Hospital [place] [address] Molly Wallis COMPUTERIZED TABLE CUTTER [facility] [place] [address] Hepatic cirrhosis, unspecified hepatic cirrhosis type, unspecified [...] directed. 05/02/2020 fluticasone propionate (FLONASE) 50 mcg/actuation [place], Suspension 1 spray daily. pramipexole (MIRAPEX) 0.125 [...] AM [place] [address] Molly Wallis, [facility] [place] [address] 04/28/2024 2:00 PM EST Office Visit Gastroenterology [place] [address] Molly Wallis, [facility] [address] documented as of this encounter Procedures Procedure [...] who have questions, please contact the health lead caregiver that requested your imaging first. ? Avila Keith, Staff Physician Electronically Signed Final Report ?? 06/06/2022 11:54 am Narrative 06/06/2022 11:55 AM EST Abdominal ? (Signed Final 06/06/2022 11:54 am) PATIENT INFO: ID #: ? [id number] ?: ??[birth year] (81 yrs)(F) Name: ? MILKA MENDIETA ?Visit Date: 06/06/2022 11:20 am PERFORMED BY: Attending: ?Avila Keith MD Performed By: ? Sosa Joshi RDMS Referred By: ?MOLLY WALLIS Secondary Phy.: ?? MOLLY WALLIS COMPUTERIZED TABLE CUTTER Location: ? [place] [facility] Protocol - Abdominal ?50084 Limited Survey Single Organ or Quadrant - [id number] INDICATIONS: cirrhosis, screen for hcc ------ LIVER: [...] 06/06/2022 11:54 am) PATIENT INFO: ID #: [id number] : [birth year] (81 yrs)(F) Name: MILKA MENDIETA Visit Date: 06/06/2022 11:20 am PERFORMED BY: Attending: Avila Keith MD Performed By: Sosa Joshi RDMS Referred By: MOLLY WALLIS [facility] Phy.: MOLLY WALLIS APRN Location: [place] SERVICE(S) PROVIDED: [facility] - Hepatology Protocol - Abdominal 00195 Limited Survey Single Organ or Quadrant - [id number] INDICATIONS: cirrhosis, screen for hcc ------ LIVER: [...] who have questions, please contact the health lead caregiver that requested your imaging first. Avila Keith, Staff Physician Electronically Signed Final Report 06/06/2022 11:54 am Molly Wallis APRN IMG US GEN ORDERAB LES documented in this encounter Visit Diagnoses Diagnosis Hepatic cirrhosis, unspecified hepatic cirrhosis type, unspecified whether ascites present documented in this encounter Care Teams Pumper Hand Relationship Specialty Start Date End Date Salome Mcarthur, COMPUTERIZED TABLE CUTTER [address] [place] [address] PCP - General Family Medicine 05/30/15 12/11/23 documented as of this encounter
--- OUTSIDE RECORDS SUMMARY | 2024-04-20 15:52 | XMS_ITS | Encounter Summary ---
Author Organization [facility] Address [facility] [place] [address] Care Team Providers Care Rim Turning Machine Operator Name Role Phone Salome Mcarthur APRN Primary Care Provider [phone] Encounter Details Date Type Department Care Team (Late st Contact Info) Description 01/08/2023 Telephone [place] [address] Kyle July Social History Tobacco Use Types [...] - 01/08/2023 12:22 PM EDT Milka Corbett [id number] Diagnosis/Indication: cirrhosis with varices Please review patient [...] procedure? No You must have a responsible alliance party who will drive you to your procedure, stay on campus for the entire duration of your procedure, and drive you home from your procedure. Who will likely be your tank truck driver for the procedure? *Please Verify [...] 04/28/2024 11:00 AM EST [place] [address] Molly Cui, [facility] [address] 04/28/2024 2:00 PM EST Office [place] [address] Molly Cui, [facility] [address] documented as of this encounter Visit Diagnoses Not on filedocumented in this encounter Care Teams Rim Turning Machine Operator Relationship Specialty Start Date End Date Salome Mcarthur APRN [address] [place] [address] PCP - General Family Medicine 05/30/15 12/11/23 documented as of this encounter
--- OUTSIDE RECORDS SUMMARY | 2024-04-20 15:52 | XMS_ITS | Encounter Summary ---
Author Organization [facility] [place] [address] Care Team Providers Care Lotus Notes Developer Name Role Phone Salome Mcarthur APRN Primary Care Provider [phone] Encounter Details Date Type Department Care Team (Late st Contact Info) Description 06/01/2021 12:00 PM EST Office [place] [phone] Lani Wallis APRN [facility] [place] [address] Hepatic cirrhosis, unspecified hepatic cirrhosis type, unspecified [...] daily. ??? fluticasone propionate (FLONASE) 50 mcg/actuation [place], Suspension 1 spray daily. ??? pramipexole (MIRAPEX) [...] Vitals: 06/01/21 1138 BP: 141/59 BP Location ([facility]): Right arm Patient Position: Sitting BP Cuff [...] Wallis APRN Section of Gastroenter[place] [address] Copy: Salome Mcarthur APRN [address] [place] [address] Time spent reviewing records prior to this [...] AM EST App[place] [address] Lani Wallis APRN [facility] [address] [place] [address] 04/28/2024 2:00 PM EST Office [place] [address] Lani Wallis APRN [facility] [place] [address] documented as of this encounter Results * AFP tumor marker (11/29/2021 11:04 AM EDT) Pathologist [facility] Alpha Fetoprotein 3.2 <=8.3 ng/mL [facility] Comment: This result was generated using a Janet Maylin immunoassay. ??Results obtained from other methods or manufacturers cannot be used interchangeably with this method. Blood 11/29/2021 11:0 4 AM EDT 11/29/2021 11:12 AM EDT Narrative Resulting Agency Comment Spec In Lab Lani Wallis APRN CHEMISTRY ORDERABL ES Performing Organization Address [facility] Co de Phone Number [facility] [place] [address] * (ABNORMAL) Prothrombin Time (11/29/2021 11:04 AM EDT) Pathologist [facility] Prothrombin Time 13.3(H) 9.4 - 12.5 sec [...] APRN HEMATOLOGY ORDERAB LES Performing Organization Address [facility]/ZIP Co de Phone Number [facility] [place] [address] * (ABNORMAL) Comprehensive metabolic panel (non-fasting) (11/29/2021 [...] CHEMISTRY ORDERABL ES [facility] [place] [address] * US Abdomen Limited Hepatology Protocol (11/29/2021 [...] ascites. Electronically signed by: Avila Keith MD, [facility] ([phone]), at 11/29/2021 10:23 AM Thank you for letting us participate in the care of this patient. If you are a health care provider and have any questions regarding this report, please contact the number above. For patients who have questions, please contact the health respiratory care program director that requested your imaging first. ?Avila Keith, Staff Physician Electronically Signed Final Report ?? 11/29/2021 10:30 am Narrative 11/29/2021 10:30 AM EDT Abdominal ? (Signed Final 11/29/2021 10:30 am) PATIENT INFO: ID #: ? [id number] ?: ??[birth year] (81 yrs)(F) Name: ? NICK MENDIETA ?Visit Date: 11/29/2021 10:17 am PERFORMED BY: Performed By: ? Esperanza HI, Dea Attending: ?Avila Keith MD Referred By: ?LANI WALLIS Secondary Phy.: ?? LANI WALLIS CARE COORDINATION MANAGER Location: ? [place] [facility] Hep[facility] Protocol - Abdominal ?79453 Limited Survey Single Organ or Quadrant - [id number] INDICATIONS: cirrhosis, screen for hcc COMPARISON: US: [...] 11/29/2021 10:30 am) PATIENT INFO: ID #: [id number] : [birth year] (81 yrs)(F) Name: NICK MENDIETA Visit Date: 11/29/2021 10:17 am PERFORMED BY: Performed By: Dea Mata RDMS Attending: Avila Keith MD Referred By: LANI WALLIS [facility] Phy.: LANI WALLIS APRN Location: [place] SERV[facility]S) [facility] - Hepatology Protocol - Abdominal 62849 Limited Survey Single Organ or Quadrant - [id number] INDICATIONS: cirrhosis, screen for hcc COMPARISON: US: [...] ascites. Electronically signed by: Avila Keith MD, [facility] ([phone]), at 11/29/2021 10:23 AM Thank you for letting us participate in the care of this patient. If you are a health care provider and have any questions regarding this report, please contact the number above. For patients who have questions, please contact the health respiratory care program director that requested your imaging first. Avila Keith, Staff Physician Electronically Signed Final Report 11/29/2021 10:30 am Lani Wallis APRN IMG US GEN ORDERAB LES documented in this encounter Visit Diagnoses Diagnosis Hepatic cirrhosis, unspecified hepatic cirrhosis type, unspecified whether ascites present Hepatic cirrhosis, unspecified hepatic cirrhosis type, unspecified whether ascites present documented in this encounter Care Teams Lotus Notes Developer Relationship Specialty Start Date End Date Salome Mcarthur APRN [address] [place] [address] PCP - General Family Medicine 05/30/15 12/11/23 documented as of this encounter
--- OUTSIDE RECORDS SUMMARY | 2024-04-20 15:52 | XMS_ITS | Encounter Summary ---
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 Procedures PRO UPPER GI ENDOSCOPY, DIAGNOSTIC PRO ANESTH, UGI ENDOSCOPY NOS EGD, UPPER GI ENDOSCOPY (WRVU 2.09) Juliette Chauhan MD [facility] [place] [address] [facility] Referral ID Status Reason Start Date Expiration Date Visits Re quested Visits Authorized [id number] 1 1 Encounter Details Date Type Department Care Team (Latest Contact Info) Description 01/23/2023 11:52 AM EDT - 01/23/2023 1:44 PM EDT Hospital En[place] [address] Julitete Chauhan MD [facility] [place] [address] Discharge Disposition: Home Social History Tobacco Use [...] the day after the procedure, use an ndsz-swu-dmovzbq spray to numb your throat. Sucking on [...] occurs, please contact your Doctor. Please call [phone] before 8pm Mon-Fri with problems, questions or concerns. If you call after 8pm or on weekends, call the Hospital at [phone] and ask to speak to the Inspector Returned Materials cushion worker and the pool table operator will contact that person for you. When should you call for help? Call [phone] anytime you think you may need emergency [...] any problems. Where can you learn more? [place] View your After Visit Summary and more online at [email or web address] If you would like to provide [...] cost to you. Content Version: 12.2 ?? 3098-7538 [employer]. Care instructions adapted under license by [facility]. If you have questions about a medical condition or this instruction, always ask your healthcare professional. [employer] disclaims any warranty or liability for your [...] 04/28/2024 11:00 AM [place] [address] Molly Cui, [facility] [place] [address] 04/28/2024 2:00 PM EST Office [place] [address] Molly Cui, [facility] [place] [address] documented as of this encounter Procedures Procedure Name Priority Date/Time Associated Diagnosis Comments Upper GI Endoscopy, Diagnostic (63005) 01/23/2023 12:23 PM EDT Hepatic cirrhosis, unspecified hepatic cirrhosis type, unspecified whether ascites present UPPER GI ENDOSCOPY Routine 01/23/2023 12 :11 PM EDT documented in this encounter Results * UPPER GI ENDOSCOPY (01/23/2023 12:11 PM EDT) [facility] Signature UPPER GI ENDOSCOPY [facility] Endoscopy Procedure Date: 01/23/2023 12:11 PM ? Patient Name: Milka Corbett ? Date of : 1940 ? Age: 82 ? Order #: [id number] ? Instrument Name: [id number]- [id number] ? Procedure: ? Upper GI endoscopy Indications: ? Follow-up of esophageal varices Providers: ? Juliette Chauhan MD, Yaw R. ? , TRISHA, Kalpana Perez MD: ?Sophia Macrthur MD Medicines: ? Midazolam 1 mg IV, [...] 01/23/2023 12:1 1 PM EDT Salome Mcarthur SHEET FED PRINTER GENERAL SURGICAL OR DERABLES PROVATION documented in [...] RN) documented in this encounter Care Teams Muck Hauler Relationship Specialty Start Date End Date Salome Mcarthur, SHEET FED PRINTER [address] [place] [address] PCP - General Family Medicine 05/30/15 12/11/23 documented as of this encounter
--- OUTSIDE RECORDS SUMMARY | 2024-04-20 15:52 | XMS_ITS | Encounter Summary ---
Author Organization [place] [address] Care Team Providers Care Fisheries Diver Name Role Phone Salome Mcarthur APRN Primary Care Provider [phone] Encounter Details Date Type Department Care Team (Late st Contact Info) Description 01/08/2022 Telephone [place] [address] Светлана Henry Social History Tobacco [...] calls can be handled by: Any procedure duck bill operator documented in this encounter Plan of Treatment Upcoming Encounters Date Type Department Care Team (Late st Contact Info) Description 04/28/2024 11:00 AM EST Appointment [place] [address] Molly Cui APRN [facility] [place] [address] 04/28/2024 2:00 PM EST Office Visit [place] [address] Molly Cui APRN [facility] [place] [address] documented as of this encounter Visit Diagnoses Not on filedocumented in this encounter Care Teams Fisheries Diver Relationship Specialty Start Date End Date Salome Mcarthur APRN [address] [place] [address] PCP - General Family Medicine 05/30/15 12/11/23 documented as of this encounter
--- OUTSIDE RECORDS SUMMARY | 2024-04-20 15:52 | XMS_ITS | Encounter Summary ---
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 Procedures PRO UPPER GI ENDOSCOPY, DIAGNOSTIC PRO ANESTH, UGI ENDOSCOPY NOS EGD, UPPER GI ENDOSCOPY (WRVU 2.09) Juliette Chauhan MD [facility] [place] [address] [facility] Referral ID Status Reason Start Date Expiration Date Visits Re quested Visits Authorized [id number] 1 1 Encounter Details Date Type Department Care Team (Late st Contact Info) Description 01/23/2023 11:15 AM EDT - 01/23/2023 11:45 AM EDT [place] [address] Juliette Chauhan MD [facility] [place] [address] EGD, UPPER GI ENDOSCOPY (WRVU 2.09) Social [...] the day after the procedure, use an quqn-jvp-chaedsl spray to numb your throat. Sucking on [...] occurs, please contact your Doctor. Please call [phone] before 8pm Mon-Fri with problems, questions or concerns. If you call after 8pm or on weekends, call the Hospital at [phone] and ask to speak to the Puller Out therapeutic consultant and the cutting and creasing press operator will contact that person for you. When should you call for help? Call [phone] anytime you think you may need emergency [...] any problems. Where can you learn more? [facility] View your After Visit Summary and more online at [email or web address] If you would like to provide feedback about your hospital experience, please call the Office of Patient and Family Relations at . If you have received this After Visit Summary in error, please immediately return it in person to the department, or notify the [facility] Privacy Office by calling toll free at between the hours of 8AM and 5PM to arrange for our retrieval of the documents at no cost to you. Content Version: 12.2 ?? [id number] [employer]. Care instructions adapted under license by [facility]. If you have questions about a medical condition or this instruction, always ask your healthcare professional. [employer] disclaims any warranty or liability for your [...] 04/28/2024 11:00 AM EST [place] [address] Molly Cui APRN [facility] [place] [address] 04/28/2024 2:00 PM EST Office Visit Gastroenterology at [facility] [place] [address] Molly Ciu APRN [facility] [place] [address] documented as of this encounter Procedures Procedure Name Priority Date/Time Associated Diagnosis Comments Upper GI Endoscopy, Diagnostic (64851) 01/23/2023 12:23 PM EDT Hepatic cirrhosis, unspecified hepatic cirrhosis type, unspecified whether ascites present UPPER GI ENDOSCOPY Routine 01/23/2023 12 :11 PM EDT documented in this encounter Results * UPPER GI ENDOSCOPY (01/23/2023 12:11 PM EDT) [facility] Signature UPPER GI ENDOSCOPY [facility] Endoscopy Procedure Date: 01/23/2023 12:11 PM ? Patient Name: Milka Corbett ? N: [id number] ? Date of : 1940 ? Age: 82 ? Order #: [id number] ? Instrument Name: [id number]- [id number] ? Procedure: ? Upper GI endoscopy Indications: [...] 01/23/2023 12:1 1 PM EDT Salome Mcarthur INSURANCE INSTRUCTOR GENERAL SURGICAL OR DERABLES PROVATION documented in [...] RN) documented in this encounter Care Teams Biofuels Engineering Manager Relationship Specialty Start Date End Date Salome Mcarthur, INSURANCE INSTRUCTOR [address] [place] [address] PCP - General Family Medicine 05/30/15 12/11/23 documented as of this encounter
--- OUTSIDE RECORDS SUMMARY | 2024-04-20 15:52 | XMS_ITS | Encounter Summary ---
Author Organization [facility] [place] [address] Care Team Providers Care Clothing Consultant Name Role Phone Salome Mcarthur APRN Primary Care Provider [phone] Encounter Details Date Type Department Care Team (Late st Contact Info) Description 06/06/2022 2:30 PM EST Office Visit [place] [address] Molly Wallis APRN [facility] [place] [address] Hepatic cirrhosis, unspecified hepatic cirrhosis type, unspecified [...] Injector ??? fluticasone propionate (FLONASE) 50 mcg/actuation [place], Suspension 1 spray daily. ??? pramipexole (MIRAPEX) [...] Wallis APRN Section of Gastroenter[place] [address] Copy: Salome Mcarthur APRN [address] / [place] [address] Time spent reviewing records prior to this [...] 04/28/2024 11:00 AM EST Appointment [place] [address] Molly Wallis COMPUTER CONSULTANT [facility] [place] [address] 04/28/2024 2:00 PM EST Office Visit [place] [address] Molly Wallis COMPUTER CONSULTANT [facility] [place] [address] documented as of this encounter Results * (ABNORMAL) Prothrombin Time (12/05/2022 12:22 PM EDT) Prothrombin Time 13.2(H) 9.4 - 12.5 sec [facility] International Normalization Ratio 1.2 [facility] Comment: An INR <2.0 indicates adequate [...] Comment Spec In Lab Molly A Basilia COMPUTER CONSULTANT HEMATOLOGY ORDERAB LES [facility] [place] [address] * (ABNORMAL) Comprehensive metabolic panel (non-fasting) (12/05/2022 12:22 PM EDT) Glucose 114 65 - 199 mg/dL [facility] Comment:Diabetes: >=200 mg/d L plus symptoms Blood Urea Nitrogen 17 8 - 18 mg/dL [facility] Creatinine 0.71 0.70 - 1.20 mg/dL [facility] Sodium 142 135 - 145 mmol/L [facility] Potassium 4.1 3.5 - 5.0 mmol/L [facility] Comment: Please note: ??Patients with WBC >100,000 may have falsely elevated Potassium levels. ??For accurate Potassium quantification in these patients send serum separator tube (gold top) for subsequent determinations. ??Contact the Clinical Chemistry Laboratory if there are any questions. Chloride 105 98 - 107 mmol/L [facility] Carbon Dioxide 28 22 - 31 mmol/L [facility] Anion Gap 9 5 - 15 mmol/L [facility] Calcium 9.7 8.5 - 10.5 mg/dL [facility] Protein, Total 7.0 6.1 - 8.0 g/dL [facility] Albumin 4.2 3.2 - 5.2 g/dL [facility] Aspartate Aminotransferase 33(H) 0 - 30 unit/L [facility] Alanine Aminotransferase 32(H) 0 - 30 unit/L [facility] Alkaline Phosphatase 136(H) 35 - 105 unit/L [facility] Bilirubin, Total 0.6 0.2 - 1.3 mg/dL [facility] Est Glomerular Filtration Rate 85 >=60 mL/min/1. 73 m?? [facility] Comment: This patient's estimated GFR was [...] Lab Molly Wallis APRN CHEMISTRY ORDERABL ES [facility] [place] [address] * US Abdomen Limited Hepatology Protocol (12/05/2022 [...] who have questions, please contact the health coronary care unit nurse that requested your imaging first. ?Avila Keith, Staff Physician Electronically Signed Final Report ?? 12/05/2022 11:56 am Narrative 12/05/2022 11:57 AM EDT Abdominal ? (Signed Final 12/05/2022 11:56 am) PATIENT INFO: ID #: ? [id number] ?: ??[birth year] (82 yrs)(F) Name: ? MILKA MENDIETA ?Visit Date: 12/05/2022 11:36 am PERFORMED BY: Attending: ?Avila Keith MD Performed By: ? Sanjeev Marshall RDMS Referred By: ?MOLLY WALLIS Secondary Phy.: ?? MOLLY WALLIS COMPUTER CONSULTANT Location: ? [place] [facility] Protocol - Abdominal ?28668 Limited Survey Single Organ or Quadrant - [id number] INDICATIONS: cirrhosis, screen for hcc ------ LIVER: [...] 12/05/2022 11:56 am) PATIENT INFO: ID #: [id number] : [birth year] (82 yrs)(F) Name: MILKA MENDIETA Visit Date: 12/05/2022 11:36 am PERFORMED BY: Attending: Avila Keith MD Performed By: Sanjeev Marshall RDMS Referred By: MOLLY WALLIS Secondary Phy.: MOLLY WALLIS APRN Location: [place] SERVICE(S) PROVIDED: [facility] - Hepatology Protocol - Abdominal 90624 Limited Survey Single Organ or Quadrant - [id number] INDICATIONS: cirrhosis, screen for hcc ------ LIVER: [...] who have questions, please contact the health coronary care unit nurse that requested your imaging first. Avila Keith, Staff Physician Electronically Signed Final Report 12/05/2022 11:56 am Molly Wallis APRN IMG GEN ORDERAB LES documented in this encounter Visit Diagnoses Diagnosis Hepatic cirrhosis, unspecified hepatic cirrhosis type, unspecified whether ascites present Hepatic cirrhosis, unspecified hepatic cirrhosis type, unspecified whether ascites present documented in this encounter Care Teams Clothing Consultant Relationship Specialty Start Date End Date Salome Mcarthur APRN [address] [place] [address] PCP - General Family Medicine 05/30/15 12/11/23 documented as of this encounter
--- OUTSIDE RECORDS SUMMARY | 2024-04-20 15:52 | XMS_ITS | Encounter Summary ---
Author Organization Formerly [facility] [place] [address] Care Team Providers Care Senior Web Analyst Name Role Phone Salome Mcarthur APRN Primary Care Provider +[phone] Encounter Details Date Type Department Care Team (Latest Contact Info) Description 11/29/2021 11:30 AM EDT Laboratory Appointment Lab [address] [place] [address] Hepatic cirrhosis, unspecified hepatic cirrhosis [...] 04/28/2024 11:00 AM EST [place] [address] Molly Cui [facility] [place] [address] 04/28/2024 2:00 PM EST Office [place] [address] Molly Cui [facility] [place] [address] documented as of this encounter [...] 11:04 AM EDT) Neutrophil % 65.7 % [facility] Neutrophil Absolute 5.57 1.70 - 6.10 x10(3)/[facility] Lymph % 21.4 % [facility] Lymphocytes Abs 1.8 0.9 - 3.2 x10(3)/[facility] LAB[facility]ORY Monocyte % 10.3 % [facility] Monocyte Abs 0.9 0.3 - 0.9 x10(3)/[facility] LABOR[facility]ORY Eos % 1.9 % [facility] Eosinophils Abs 0.2 0.0 - 0.4 x10(3)/[facility] LABOR[facility]ORY Basophil % 0.5 % [facility] Baso Absolute 0.0 0.0 - 0.1 x10(3)/[facility] LABORATORY Immature Gran % 0.20 % [facility] Comment: Immature granulocytes(IG's)percentage and absolute count will include metamyelocytes, myelocytes, and promyelocytes. Blood smears from CBCs yielding IG's will be scanned manually for concordance. If this scan disagrees with the automated IG or if promyelocytes are noted, a manual differential will be performed. Immature Gran Absolute 0.02 0.00 - 0.04 x10(3)/[facility] LAB[facility]ORY Blood 11/29/2021 11:0 4 AM EDT 11/29/2021 11:12 AM EDT Narrative Resulting Agency Comment Spec In Lab Molly Cui APRN HEMATOLOGY ORDERAB LES Performing Organization Address City/State/[facility] Co de Phone Number [facility] [place] [address] * (ABNORMAL) Hemogram (11/29/2021 11:04 AM EDT) White Blood Cell 8.5 4.0 - 9.5 x10(3)/[facility] LAB[facility] Red Blood Cell 4.44 4.00 - 5.21 x10(6)/[facility] Hemoglobin 13.6 11.7 - 15.5 g/dL [facility] Hematocrit 40.2 35.7 - 45.8 % [facility] Mean Cell Volume 90.5 82.6 - 94.4 fL [facility] Mean Cell Hemoglobin 30.6 27.1 - 32.0 pg [facility] Mean Cell Hemoglobin Concentration 33.8 31.7 - 35.0 g/dL [facility] Platelet 93(L) 145 - 357 x10(3)/[facility] LABORATORY RDW Standard Deviation 42.5 37.0 - 46.0 [facility] LABORATORY RDW coefficient of variation 12.9 11.5 - 14.1 % [facility] Mean Platelet Volume 11.8 7.6 - 12.9 fL [facility] NRBC% auto 0.0 % [facility] NRBC Absolute 0.000 0.000 - 0.000 x10(3)/mcL [facility] Blood 11/29/2021 11:0 4 AM EDT 11/29/2021 11:12 AM EDT Narrative Resulting Agency Comment Spec In Lab Mollyjuan a Cui SEWER DIGGER HEMATOLOGY ORDERAB LES [facility] [place] [address] * (ABNORMAL) Comprehensive metabolic panel (non-fasting) (11/29/2021 11:04 AM EDT) Glucose 122 65 - 199 mg/dL [facility] Comment:Diabetes: >=200 mg/d L plus symptoms Blood Urea Nitrogen 18 8 - 18 mg/dL [facility] Creatinine 0.64(L) 0.70 - 1.20 mg/dL [facility] Sodium 140 135 - 145 mmol/L [facility] Potassium 4.2 3.5 - 5.0 mmol/L [facility] Comment: Please note: ??Patients with WBC >100,000 may have falsely elevated Potassium levels. ??For accurate Potassium quantification in these patients send serum separator tube (gold top) for subsequent determinations. ??Contact the Clinical Chemistry Laboratory if there are any questions. Chloride 101 98 - 107 mmol/L [facility] Carbon Dioxide 27 22 - 31 mmol/L [facility] Anion Gap 12 5 - 15 mmol/L [facility] Calcium 11.0(H) 8.5 - 10.5 mg/dL [facility] Protein, Total 7.4 6.1 - 8.0 g/dL [facility] Albumin 4.5 3.2 - 5.2 g/dL [facility] Aspartate Aminotransferase 32(H) 0 - 30 unit/L [facility] Alanine Aminotransferase 39(H) 0 - 30 unit/L [facility] Alkaline Phosphatase 100 35 - 105 unit/L [facility] Bilirubin, Total 0.9 0.2 - 1.3 mg/dL [facility] Est Glomerular Filtration Rate 89 >=60 mL/min/1. 73 m?? [facility] [...] CHEMISTRY ORDERABL ES Performing Organization Address [facility] Co de Phone Number [facility] [place] [phone] * (ABNORMAL) Prothrombin Time (11/29/2021 11:04 AM EDT) Prothrombin Time 13.3(H) 9.4 - 12.5 sec [facility] International Normalization Ratio 1.2 [facility] Comment: An INR [...] HEMATOLOGY ORDERAB LES Performing Organization Address [facility]/ZIP Co de Phone Number [facility] [place] [address] * AFP tumor marker (11/29/2021 11:04 AM EDT) Alpha Fetoprotein 3.2 <=8.3 ng/mL [facility] Comment: This result was generated using a Janet Maylin immunoassay. ??Results obtained from other methods or manufacturers cannot be used interchangeably with this method. Blood 11/29/2021 11:0 4 AM EDT 11/29/2021 11:12 AM EDT Narrative Resulting Agency Comment Spec In Lab Molly Cui APRN CHEMISTRY ORDERABL ES Performing Organization Address [facility] Co de Phone Number [facility] [place] [address] documented in this encounter Visit Diagnoses Diagnosis Hepatic cirrhosis, unspecified hepatic cirrhosis type, unspecified whether ascites present documented in this encounter Care Teams Senior Web Analyst Relationship Specialty Start Date End Date Salome Mcarthur APRN [address] [place] [address] PCP - General Family Medicine 05/30/15 12/11/23 documented as of this encounter
--- OUTSIDE RECORDS SUMMARY | 2024-04-20 15:52 | XMS_ITS | Encounter Summary ---
Author Organization Formerly [facility] Address [facility] [place] [address] Care Team Providers Care Electrical Instrument Maker Name Role Phone Salome Mcarthur APRN Primary Care Provider +[phone] Encounter Details Date Type Department Care Team (Late st Contact Info) Description 01/03/2022 [place]phone [place] [phone] Kyle July Social History Tobacco Use Types [...] - 01/03/2022 9:03 AM EDT Milka Corbett [id number] Diagnosis/Indication: cirrhosis with varices, reassess. EGD ordered [...] No 18. You must have a responsible republican who will drive you to your procedure, stay on campus for the entire duration of your procedure, and drive you home from your procedure. Who will likely be your minibus driver for the procedure? *Please Verify the [...] 04/28/2024 11:00 AM EST [place] [address] Molly Cui, [facility] [place] [address] 04/28/2024 2:00 PM EST Office [place] [address] Molly Cui, [facility] [place] [address] documented as of this encounter Visit Diagnoses Not on filedocumented in this encounter Care Teams Electrical Instrument Maker Relationship Specialty Start Date End Date Salome Mcarthur APRN [address] [address] PCP - General Family Medicine 05/30/15 12/11/23 documented as of this encounter
--- OUTSIDE RECORDS SUMMARY | 2024-04-20 15:52 | XMS_ITS | Encounter Summary ---
Author Organization [facility] [place] [address] Care Team Providers Care Isotope Hydrologist Name Role Phone Salome Mcarthur APRN Primary Care Provider [phone] Encounter Details Date Type Department Care Team (Latest Contact Info) Description 12/05/2022 12:15 PM EDT Laboratory Appointment Lab [address] [place] [address] Hepatic cirrhosis, unspecified hepatic cirrhosis [...] 04/28/2024 11:00 AM [place] [address] [facility] [place] [address] 04/28/2024 2:00 PM EST Office [place] [address] [facility] [place] [address] documented as of this encounter [...] 12:22 PM EDT) Neutrophil % 56.6 % [facility] Neutrophil Absolute 2.71 1.70 - 6.10 x10(3)/[facility] LAB[facility]AT[facility] Lymph % 30.5 % [facility] Lymphocytes Abs 1.5 0.9 - 3.2 x10(3)/[facility] LABORATORY Monocyte % 9.2 % [facility] Monocyte Abs 0.4 0.3 - 0.9 x10(3)/[facility] LABORATORY Eos % 2.9 % [facility] Eosinophils Abs 0.1 0.0 - 0.4 x10(3)/[facility] LABORATORY Basophil % 0.4 % [facility] Baso Absolute 0.0 0.0 - 0.1 x10(3)/[facility] LABORATORY Immature Gran % 0.40 % [facility] Comment: Immature granulocytes(IG's)percentage and absolute count will include metamyelocytes, myelocytes, and promyelocytes. Blood smears from CBCs yielding IG's will be scanned manually for concordance. If this scan disagrees with the automated IG or if promyelocytes are noted, a manual differential will be performed. Immature Gran Absolute 0.02 0.00 - 0.04 x10(3)/mcL [facility] Blood 12/05/2022 12:2 2 PM EDT 12/05/2022 12:47 PM EDT Narrative Resulting Agency Comment Spec In Lab Molly Cui STORE CLERK CHECKER HEMATOLOGY ORDERAB LES [facility] [place] [address] * (ABNORMAL) Hemogram (12/05/2022 12:22 PM EDT) White Blood Cell 4.8 4.0 - 9.5 x10(3)/mc L [facility] Red Blood Cell 4.13 4.00 - 5.21 x10(6)/mc L [facility] Hemoglobin 12.8 11.7 - 15.5 g/dL [facility] Hematocrit 38.5 35.7 - 45.8 % [facility] Mean Cell Volume 93.2 82.6 - 94.4 fL [facility] Mean Cell Hemoglobin 31.0 27.1 - 32.0 pg [facility] Mean Cell Hemoglobin Concentration 33.2 31.7 - 35.0 g/dL [facility] Platelet 91(L) 145 - 357 x10(3)/mc L [facility] RDW Standard Deviation 46.7(H) 37.0 - 46.0 fL [facility] RDW coefficient of variation 13.8 11.5 - 14.1 % [facility] Mean Platelet Volume 11.2 7.6 - 12.9 fL [facility] NRBC% auto 0.0 % [facility] NRBC Absolute 0.000 0.000 - 0.000 x10(3)/mc L [facility] Blood 12/05/2022 12:2 2 PM EDT 12/05/2022 12:47 PM EDT Narrative Resulting Agency Comment Spec In Lab Molly Cui STORE CLERK CHECKER HEMATOLOGY ORDERAB LES [facility] [place] [address] * (ABNORMAL) Comprehensive metabolic panel (non-fasting) (12/05/2022 12:22 PM EDT) Glucose 114 65 - 199 mg/dL [facility] Comment:Diabetes: >=200 mg/d L plus symptoms Blood Urea Nitrogen 17 8 - 18 mg/dL [facility] Creatinine 0.71 0.70 - 1.20 mg/dL [facility] Sodium 142 135 - 145 mmol/L [facility] Potassium 4.1 3.5 - 5.0 mmol/L [facility] Comment: Please note: ??Patients with WBC >100,000 may have falsely elevated Potassium levels. ??For accurate Potassium quantification in these patients send serum separator tube (gold top) for subsequent determinations. ??Contact the Clinical Chemistry Laboratory if there are any questions. Chloride 105 98 - 107 mmol/L [facility] Carbon Dioxide 28 22 - 31 mmol/L [facility] Anion Gap 9 5 - 15 mmol/L [facility] Calcium 9.7 8.5 - 10.5 mg/dL [facility] Protein, Total 7.0 6.1 - 8.0 g/dL [facility] Albumin 4.2 3.2 - 5.2 g/dL [facility] Aspartate Aminotransferase 33(H) 0 - 30 unit/L [facility] Alanine Aminotransferase 32(H) 0 - 30 unit/L [facility] Alkaline Phosphatase 136(H) 35 - 105 unit/L [facility] Bilirubin, Total 0.6 0.2 - 1.3 mg/dL [facility] Est Glomerular Filtration Rate 85 >=60 mL/min/1. 73 m?? [facility] Comment: This patient's estimated GFR [...] APRN CHEMISTRY ORDERABL ES Performing Organization Address [facility] Co de Phone Number [facility] [place] [address] * (ABNORMAL) Prothrombin Time (12/05/2022 12:22 PM EDT) Prothrombin Time 13.2(H) 9.4 - 12.5 sec [facility] International Normalization Ratio 1.2 [facility] Comment: An INR <2.0 indicates [...] APRN HEMATOLOGY ORDERAB LES Performing Organization Address [facility] Co de Phone Number [facility] [place] [address] documented in this encounter Visit Diagnoses Diagnosis Hepatic cirrhosis, unspecified hepatic cirrhosis type, unspecified whether ascites present documented in this encounter Care Teams Isotope Hydrologist Relationship Specialty Start Date End Date Salome Mcarthur APRN [address] [place] [address] PCP - General Family Medicine 05/30/15 12/11/23 documented as of this encounter
--- OUTSIDE RECORDS SUMMARY | 2024-04-20 15:52 | XMS_ITS | Encounter Summary ---
Author Organization [facility] [place] [address] Care Team Providers Care Bell Spinner Sousaphones Name Role Phone Salome Mcarthur APRN Primary Care Provider [phone] Encounter Details Date Type Department Care Team (Latest Contact Info) Description 06/01/2021 10:00 AM EST Laboratory Appointment Lab [address]L [place] [address] Hepatic cirrhosis, unspecified hepatic cirrhosis [...] 11:00 AM EST Appointment [place] [address] Molly Cui [facility] [place] [address] 04/28/2024 2:00 PM EST Office Visit [place] [address] Molly Cui [facility] [place] [address] documented as of this encounter [...] 10:31 AM EST) Neutrophil % 61.2 % [facility] Neutrophil Absolute 4.16 1.70 - 6.10 x10(3)/[facility] LABORATORY Lymph % 23.8 % [facility] Lymphocytes Abs 1.6 0.9 - 3.2 x10(3)/[facility] LABORATORY Monocyte % 12.5 % [facility] Monocyte Abs 0.8 0.3 - 0.9 x10(3)/[facility] LABORATORY Eos % 1.8 % [facility] Eosinophils Abs 0.1 0.0 - 0.4 x10(3)/[facility] LABORATORY Basophil % 0.4 % [facility] Baso Absolute 0.0 0.0 - 0.1 x10(3)/[facility] LABORATORY Immature Gran % 0.30 % [facility] Comment: Immature granulocytes(IG's)percentage and absolute count will include metamyelocytes, myelocytes, and promyelocytes. Blood smears from CBCs yielding IG's will be scanned manually for concordance. If this scan disagrees with the automated IG or if promyelocytes are noted, a manual differential will be performed. Immature Gran Absolute 0.02 0.00 - 0.04 x10(3)/[facility] LABORATORY Blood 06/01/2021 10:3 1 AM EST 06/01/2021 10:41 AM EST Narrative Resulting Agency Comment Spec In Lab Molly Cui FAMILY SERVICE CASEWORKER HEMATOLOGY ORDERAB LES [facility] [place] [address] * (ABNORMAL) Hemogram (06/01/2021 10:31 AM EST) White Blood Cell 6.8 4.0 - 9.5 x10(3)/[facility] LABORATORY Red Blood Cell 4.20 4.00 - 5.21 x10(6)/[facility] LABORATORY Hemoglobin 12.8 11.7 - 15.5 g/dL [facility] Hematocrit 38.6 35.7 - 45.8 % [facility] Mean Cell Volume 91.9 82.6 - 94.4 fL [facility] Mean Cell Hemoglobin 30.5 27.1 - 32.0 pg [facility] Mean Cell Hemoglobin Concentration 33.2 31.7 - 35.0 g/dL [facility] Platelet 93(L) 145 - 357 x10(3)/[facility] LABORATORY RDW Standard Deviation 44.9 37.0 - 46.0 fL [facility] RDW coefficient of variation 13.2 11.5 - 14.1 % [facility] Mean Platelet Volume 11.9 7.6 - 12.9 fL [facility] NRBC% auto 0.0 % [facility] NRBC Absolute 0.000 0.000 - 0.000 x10(3)/[facility] LABORATORY Blood 06/01/2021 10:3 1 AM EST 06/01/2021 10:41 AM EST Narrative Resulting Agency Comment Spec In Lab Molly Cui LORETO HEMATOLOGY ORDERAB LES [facility] [place] [address] * (ABNORMAL) Comprehensive metabolic panel (non-fasting) (06/01/2021 10:31 AM EST) Glucose 187 65 - 199 mg/dL [facility] Comment:Diabetes: >=200 mg/d L plus symptoms Blood Urea Nitrogen 16 8 - 18 mg/dL [facility] Creatinine 0.61(L) 0.70 - 1.20 mg/dL [facility] Sodium 139 135 - 145 mmol/L [facility] questions. Chloride 102 98 - 107 mmol/L [facility] Carbon Dioxide 25 22 - 31 mmol/L [facility] Anion Gap 12 5 - 15 mmol/L [facility] Calcium 10.0 8.5 - 10.5 mg/dL [facility] Protein, Total 6.8 6.1 - 8.0 g/dL [facility] Albumin 4.3 3.2 - 5.2 g/dL [facility] Aspartate Aminotransferase 45(H) 0 - 30 unit/L [facility] Alanine Aminotransferase 60(H) 0 - 30 unit/L [facility] Alkaline Phosphatase 95 35 - 105 unit/L [facility] Bilirubin, Total 0.7 0.2 - 1.3 mg/dL [facility] Est Glomerular Filtration Rate 86 >=60 mL/min/1. 73 m?? [facility] Comment: This patient? [...] CHEMISTRY ORDERABL ES Performing Organization Address [facility] Phone Number [facility] [place] [address] * Prothrombin Time (06/01/2021 10:31 AM EST) Prothrombin Time 12.1 9.4 - 12.5 sec [facility] APRN HEMATOLOGY ORDERAB LES Performing Organization Address [facility] Co nm Phone Number [facility] [place] [address] documented in this encounter Visit Diagnoses Diagnosis Hepatic cirrhosis, unspecified hepatic cirrhosis type, unspecified whether ascites present documented in this encounter Care Teams Bell Spinner Sousaphones Relationship Specialty Start Date End Date Salome Mcarthur FAMILY SERVICE CASEWORKER [address] [place] [address] PCP - General Family Medicine 05/30/15 12/11/23 documented as of this encounter
--- OUTSIDE RECORDS SUMMARY | 2024-04-20 15:52 | XMS_ITS | Encounter Summary ---
Author Organization [facility] Address [facility] [place] [address] Care Team Providers Care Automatic Drill Operator Name Role Phone Salome Mcarthur APRN Primary Care Provider +1 [phone] Encounter Details Date Type Department Care Team (Latest Contact Info) Description 12/05/2022 11:03 AM EDT - 12/05/2022 11:59 PM EDT Hospital [place] [phone] Molly Wallis PLASTICATOR [facility] [place] [address] Hepatic cirrhosis, unspecified hepatic cirrhosis type, unspecified [...] directed. 05/02/2020 fluticasone propionate (FLONASE) 50 mcg/actuation [place], Suspension 1 spray daily. pramipexole (MIRAPEX) 0.125 [...] 04/28/2024 11:00 AM EST [place] [address] Molly Wallis, [facility] [place] [address] 04/28/2024 2:00 PM EST Office [place] [address] Molly Wallis, PLASTICATOR [facility] [place] [address] documented as of this encounter Procedures Procedure [...] Avila Keith MD, [facility] ([phone]), at 12/05/2022 11:48 AM Thank you for letting us participate in the care of this patient. If you are a health care provider and have any questions regarding this report, please contact the number above. For patients who have questions, please contact the health associate director career services that requested your imaging first. ?Avila Keith, Staff Physician Electronically Signed Final Report ?? 12/05/2022 11:56 am Narrative 12/05/2022 11:57 AM EDT Abdominal ? (Signed Final 12/05/2022 11:56 am) PATIENT INFO: ID #: ? [id number] ?: ??42 (82 yrs)(F) Name: ? MILKA MENDIETA ?Visit Date: 12/05/2022 11:36 am PERFORMED BY: Attending: ?Avila Keith MD Performed By: ? Sanjeev Marshall RDMS Referred By: ?MOLLY WALLIS Secondary Phy.: ?? MOLLY WALLIS PLASTICATOR Location: ? [facility] - [facility] Protocol - Abdominal ?84876 Limited Survey Single Organ or Quadrant - [id number] INDICATIONS: cirrhosis, screen for hcc ------ LIVER: [...] 12/05/2022 11:56 am) PATIENT INFO: ID #: [id number] : 42 (82 yrs)(F) Name: MILKA MENDIETA Visit Date: 12/05/2022 11:36 am PERFORMED BY: Attending: Avila Keith MD Performed By: Sanjeev Marshall RDMS Referred By: MOLLY WALLIS Secondary Phy.: MOLLY WALLIS APRN Location: [facility] SERVICE(S) PROVIDED: [facility] - Hepatology Protocol - Abdominal 84022 Limited Survey Single Organ or Quadrant - [id number] INDICATIONS: cirrhosis, screen for hcc ------ LIVER: [...] who have questions, please contact the health associate director career services that requested your imaging first. Avila Keith, Staff Physician Electronically Signed Final Report 12/05/2022 11:56 am Molly Wallis APRN IMG GEN ORDERAB LES documented in this encounter Visit Diagnoses Diagnosis Hepatic cirrhosis, unspecified hepatic cirrhosis type, unspecified whether ascites present documented in this encounter Care Teams Automatic Drill Operator Relationship Specialty Start Date End Date Salome Mcarthur APRN [address] [place] [address] PCP - General Family Medicine 05/30/15 12/11/23 documented as of this encounter
--- OUTSIDE RECORDS SUMMARY | 2024-04-20 15:52 | XMS_ITS | Encounter Summary ---
[facility] [place] [address] Care Team Providers Care Nps Name Role Phone Salome Mcarthur APRN Primary Care Provider +1 [phone] Encounter Details Date Type Department Care Team (Late st Contact Info) Description 01/15/2022 Telephone [place] [phone] Gabriela Wright Social History Tobacco Use Types [...] 04/28/2024 11:00 AM EST [place] [phone] Molly Cui [facility] [place] [address] 04/28/2024 2:00 PM EST Office [place] [address] Molly Cui [facility] [address] documented as of this encounter Visit Diagnoses Not on filedocumented in this encounter Care Teams Nps Relationship Specialty Start Date End Date Wohlberg, Salome B, EDUCATION TEACHER [address] [place] [address] PCP - General Family Medicine 05/30/15 12/11/23 documented as of this encounter
--- OUTSIDE RECORDS SUMMARY | 2024-04-20 15:52 | XMS_ITS | Encounter Summary ---
Author Organization [facility] Address [facility] [place] [address] Care Team Providers Care Machine Wedger Name Role Phone Salome Mcarthur APRN Primary Care Provider +[phone]- [phone] Encounter Details Date Type Department Care Team (Latest Contact Info) Description 06/01/2021 9:30 AM EST - 06/01/2021 11:59 PM [facility] Hospital [place] [phone] Lani Wallis SPRAYER MACHINE [facility] [place] [address] Hepatic cirrhosis, unspecified hepatic cirrhosis type, unspecified [...] directed. 05/02/2020 fluticasone propionate (FLONASE) 50 mcg/actuation [place], Suspension 1 spray daily. pramipexole (MIRAPEX) 0.125 [...] 04/28/2024 11:00 AM [place] [phone] Lani Wallis, [facility] [address] 04/28/2024 2:00 PM EST Office [place] [phone] Lani Wallis, [facility] [place] [address] documented as of this encounter Procedures Procedure [...] questions, please contact the health urgent care physician that requested your imaging first. ?Marilee Hernández-Pepito, Staff Physician Electronically Signed Final Report ?? 06/01/2021 10:01 am Narrative 06/01/2021 10:02 AM EST Abdominal ? (Signed Final 06/01/2021 10:01 am) PATIENT INFO: ID #: ? [id number] ?: ??42 (80 yrs)(F) Name: ? NICK MENDIETA ?Visit Date: 06/01/2021 09:47 am PERFORMED BY: Performed By: ? Lana Gotti RDMS Attending: ?Betty GALLO, Marilee Ragsdale Referred By: ?LANI WALLIS Secondary Phy.: ?? LANI WALLIS SPRAYER MACHINE Location: ? [place] SERVICE(S) PROVIDED: [facility] - Hepatology Protocol - Abdominal ? 00117 Limited Survey Single Organ or Quadrant - [id number] INDICATIONS: cirrhosis, screen for hcc ------ LIVER: [...] 06/01/2021 10:01 am) PATIENT INFO: ID #: [id number] : 42 (80 yrs)(F) Name: NICK MENDIETA Visit Date: 06/01/2021 09:47 am PERFORMED BY: Performed By: Lana Gotti RDMS Attending: Marilee Hernández MD Referred By: LANI WALLIS Secondary Phy.: LANI WALLIS APRN Location: [place] SERVICE(S) [facility]: [facility] - Hepatology Protocol - Abdominal 07567 Limited Survey Single Organ or Quadrant - [id number] INDICATIONS: cirrhosis, screen for hcc ------ LIVER: ------ Right Lobe Length: 20.2 cm Echogenicity/Echotexture: Coarse parenchyma with capsular nodularity -------- Lesions: -------- # Date Location Description L AP TV (cm) 06/01/21 Left Lobe Hyperechoic, 0.5 0.5 0.5 [facility] 09/26/20 Posterior Echogenic 0.6 0.4 0.7 Left Lobe Comment: Calc seen measuring 8 mm GALLBLADDER: Cholelithiasis: Surgically absent Focal Tenderness: Negative sonographic Mairno's sign BILIARY TRACT: Intrahepatic Ducts: Normal Extrahepatic [...] questions, please contact the health urgent care physician that requested your imaging first. Marilee Her, Staff Physician Electronically Signed Final Report 06/01/2021 10:01 am Lani Sharron Wallis APRN IMG GEN ORDERAB LES documented in this encounter Visit Diagnoses Diagnosis Hepatic cirrhosis, unspecified hepatic cirrhosis type, unspecified whether ascites present documented in this encounter Care Teams Machine Wedger Relationship Specialty Start Date End Date Salome Mcarthur APRN [address] [place] [address] PCP - General Family Medicine 05/30/15 12/11/23 documented as of this encounter
--- OUTSIDE RECORDS SUMMARY | 2024-04-20 15:52 | XMS_ITS | Encounter Summary ---
Author Organization [facility] [place] [address] Care Team Providers Care Hand Chain Maker Name Role Phone Salome Mcarthur APRN Primary Care Provider +1 [phone] Reason for Visit * Reason Comments Medication Refill Encounter Details Date Type Department Care Team (Late st Contact Info) Description 04/28/2023 [place] [phone] Molly Cui [facility] [address] Gastroesophageal reflux disease without esophagitis Social History [...] 04/28/2024 11:00 AM [place] [phone] Molly Cui [facility] [place] [address] 04/28/2024 2:00 PM EST Office [place] [phone] Molly Cui [facility] [place] [address] documented as of this encounter Visit Diagnoses Diagnosis Gastroesophageal reflux disease without esophagitis Esophageal reflux documented in this encounter Care Teams Hand Chain Maker Relationship Specialty Start Date End Date Salome Mcarthur, RADIAL DRILL OPERATOR [address] [address] PCP - General Family Medicine 05/30/15 12/11/23 documented as of this encounter
--- OUTSIDE RECORDS SUMMARY | 2024-04-20 15:52 | XMS_ITS | Encounter Summary ---
Author Organization [facility] [place] [address] Care Team Providers Care Graphic Design Specialist Name Role Phone Salome Mcarthur APRN Primary Care Provider +1 [phone] Encounter Details Date Type Department Care Team [...] 04/28/2024 11:00 AM EST [place] [address] Molly Cui ACCOUNT ASSOCIATE [facility] [place] [address] 04/28/2024 2:00 PM EST Office [place] [phone] Molly Cui [facility] [place] [address] documented as of this encounter Visit Diagnoses Not on filedocumented in this encounter Care Teams Graphic Design Specialist Relationship Specialty Start Date End Date Salome Mcarthur APRN [address] [address] PCP - General Family Medicine 05/30/15 12/11/23 documented as of this encounter
--- OUTSIDE RECORDS SUMMARY | 2024-04-20 15:52 | XMS_ITS | Encounter Summary ---
Author Organization [facility] [address] Care Team Providers Care Mail Processing Clerk Name Role Phone Salome Mcarthur APRN Primary Care Provider +1 [phone] Encounter Details Date Type Department Care Team (Late st Contact Info) Description 12/05/2022 1:30 PM EDT Office [place] [phone] Molly Wallis APRN [facility] [place] [address] Hepatic cirrhosis, unspecified hepatic cirrhosis type, unspecified [...] Wallis APRN Section of Gastroenterology [place] [address] Copy: Salome Mcarthur APRN [address] / [email or web address] [address] Time spent reviewing records prior to this [...] 04/28/2024 11:00 AM EST [place] [phone] Molly Wallis [facility] [address] 04/28/2024 2:00 PM EST Office [place] [phone] Molly Wallis, [facility] [place] [address] Scheduled Orders Name Type Priority Associated Diagnoses Orde r Schedule ENDOSCOPY CASE REQUEST: EGD, UPPER GI ENDOSCOPY (WRVU 2.09) Procedures Routine Hepatic cirrhosis, unspecified hepatic cirrhosis type, unspecified whether ascites present Ordered: 12/05/2022 documented as of this encounter Results * Prothrombin Time (08/08/2023 12:19 PM EDT) Prothrombin Time 12.2 9.4 - 12.5 sec [facility] [...] LES [facility] [place] [address] * (ABNORMAL) Comprehensive metabolic panel (non-fasting) (08/08/2023 12:19 PM EDT) Glucose 110 65 - 199 mg/dL [facility] Comment:Diabetes: >=200 mg/d L plus symptoms Blood Urea Nitrogen 19(H) 8 - 18 mg/dL [facility] Creatinine 0.72 0.70 - 1.20 mg/dL [facility] Sodium 144 135 - 145 mmol/L [facility] [...] 15 mmol/L [facility] Calcium 10.0 8.5 - 10.5 mg/dL [facility] Protein, Total 7.0 6.1 - 8.0 g/dL [facility] Albumin 4.2 3.2 - 5.2 g/dL [facility] Aspartate Aminotransferase 34(H) 0 - 30 unit/L [facility] Alanine Aminotransferase 33(H) 0 - 30 unit/L [facility] Alkaline Phosphatase 121(H) 35 - 105 unit/L [facility] Bilirubin, Total 0.5 0.2 - 1.3 mg/dL [facility] Est Glomerular Filtration Rate 83 >=60 mL/min/1. 73 m?? [facility] [...] Agency Comment Spec In Lab Molly Wallis VICE PRESIDENT OF BUSINESS DEVELOPMENT CHEMISTRY ORDERABL ES [facility] [place] [address] * US Abdomen Limited Hepatology Protocol (08/08/2023 11:45 AM EDT) WORKSTATION ID [id number] RAD Anatomical Region Laterality Modality Abdomen Ultrasound [...] PM Electronically signed by: Alisha Grove MD, [facility] ([phone]), at 08/08/2023 1:24 PM Thank you for letting us participate in the care of this patient. If you are a health care provider and have any questions regarding this report, please contact the number above. For patients who have questions, please contact the health child care director that requested your imaging first. ?Alisha Grove, Staff Physician Electronically Signed Final Report ?? 08/08/2023 01:31 pm Narrative 08/08/2023 1:32 PM EDT Abdominal ? (Signed Final 08/08/2023 01:31 pm) PATIENT INFO: ID #: ? [id number] ?: ??42 (83 yrs)(F) Name: ? MILKA MENDIETA ?Visit Date: 08/08/2023 11:27 am PERFORMED BY: Attending: ?Perfecto GALLO, Alisha Carpio Resident: ? Stevie GALLO, [facility] Performed By: ? Ayaka Biswas RDMS Referred By: ?MOLLY WALLIS Location: ? [place] [facility] Hep[facility] Protocol - Abdominal ?37614 Limited Survey Single Organ or Quadrant - [id number] INDICATIONS: cirrhosis, screen for hcc, splenomegaly ------ [...] 08/08/2023 01:31 pm) PATIENT INFO: ID #: [id number] : 42 (83 yrs)(F) Name: MILKA MENDIETA Visit Date: 08/08/2023 11:27 am PERFORMED BY: Attending: Alisha Grove MD Resident: Stevie GALLO [facility] Performed By: Ayaka Biswas RDMS Referred By: MOLLY WALLIS Location: [place] SERVICE(S) PROVIDED: [facility] - Hepatology Protocol - Abdominal 80106 Limited Survey Single Organ or Quadrant - [id number] INDICATIONS: cirrhosis, screen for hcc, splenomegaly ------ [...] PM Electronically signed by: Alisha Grove MD, [facility] ([phone]), at 08/08/2023 1:24 PM Thank you for letting us participate in the care of this patient. If you are a health care provider and have any questions regarding this report, please contact the number above. For patients who have questions, please contact the health child care director that requested your imaging first. Alisha Grove, Staff Physician Electronically Signed Final Report 08/08/2023 01:31 pm Molly Wallis APRN [facility] GEN ORDERAB LES documented in this encounter Visit Diagnoses Diagnosis Hepatic cirrhosis, unspecified hepatic cirrhosis type, unspecified whether ascites present Hepatic cirrhosis, unspecified hepatic cirrhosis type, unspecified whether ascites present documented in this encounter Care Teams Mail Processing Clerk Relationship Specialty Start Date End Date Salome Mcarthur APRN [address] [place] [address] PCP - General Family Medicine 05/30/15 12/11/23 documented as of this encounter
--- OUTSIDE RECORDS SUMMARY | 2024-04-20 15:52 | XMS_ITS | Encounter Summary ---
Author Organization [facility] [place] [address] Care Team Providers Care Clinical Practitioner Name Role Phone Salome Mcarthur APRN Primary Care Provider [phone] Encounter Details Date Type Department Care Team (Latest Contact Info) Description 09/12/2021 Transcribe [place] [address] Salome Mcarthur APRN [address] [place], [place] [id number] Type II diabetes mellitus with neurological manifestations; [...] 04/28/2024 11:00 AM EST Appointment [place] [address] Molly Cui TURBO OPERATOR [facility] [place] [address] 04/28/2024 2:00 PM EST Office [place] [address] Molly Cui TURBO OPERATOR [facility] [place] [address] documented as of this encounter Visit Diagnoses Diagnosis Type II diabetes mellitus with neurological manifestations Type II or unspecified type diabetes mellitus with neurological manifestations, not stated as uncontrolled Microalbuminuria Proteinuria Florid cirrhosis Alcoholic cirrhosis of liver Encephalopathy, unspecified documented in this encounter Care Teams Clinical Practitioner Relationship Specialty Start Date End Date Salome Mcarthur APRN [address] [place] [address] PCP - General Family Medicine 05/30/15 12/11/23 documented as of this encounter
--- OUTSIDE RECORDS SUMMARY | 2024-04-20 15:52 | XMS_ITS | Encounter Summary ---
Author Organization [facility] Address [facility] [address] Care Team Providers Care Coal Cutter Name Role Phone Salome Mcarthur APRN Primary Care Provider [phone] Encounter Details Date Type Department Care Team (Latest Contact Info) Description 08/08/2023 11:20 AM EDT - 08/08/2023 11:59 PM EDT Hospital [place] [phone] Molly Wallis PROGRAM AIDE GROUP WORK [facility] [place] [address] Hepatic cirrhosis, unspecified hepatic cirrhosis type, unspecified [...] directed. 05/02/2020 fluticasone propionate (FLONASE) 50 mcg/actuation [place], Suspension 1 spray daily. pramipexole (MIRAPEX) 0.125 [...] 04/28/2024 11:00 AM [place] [address] Molly Wallis PROGRAM AIDE GROUP WORK [facility] [place] [address] 04/28/2024 2:00 PM EST Office [place] [phone] Molly Wallis PROGRAM AIDE GROUP WORK [facility] [place] [address] documented as of this encounter Procedures Procedure Name Priority Date/Time Associated Diagnosis Comments US ABDOMEN LIMITED HEPATOLOGY PROTOCOL Routine 08/08/2023 11:45 AM EDT Hepatic cirrhosis, unspecified hepatic cirrhosis type, unspecified whether ascites present documented in this encounter Results * US Abdomen Limited Hepatology Protocol (08/08/2023 11:45 AM EDT) WORKSTATION ID [id number] RAD Anatomical Region Laterality Modality Abdomen Ultrasound [...] by: Alisha Grove MD, [facility] ([phone]), at 08/08/2023 1:24 PM Thank you for letting us participate in the care of this patient. If you are a health care provider and have any questions regarding this report, please contact the number above. For patients who have questions, please contact the health foster care social worker that requested your imaging first. ?Alisha J. Perfecto, Staff Physician Electronically Signed Final Report ?? 08/08/2023 01:31 pm Narrative 08/08/2023 1:32 PM EDT Abdominal ? (Signed Final 08/08/2023 01:31 pm) PATIENT INFO: ID #: ? [id number] ?: ??42 (83 yrs)(F) Name: ? MILKA MENDIETA ?Visit Date: 08/08/2023 11:27 am PERFORMED BY: Attending: ?Perfecto GALLO, Alisha Carpio Resident: ? Stevie GALLO, [facility] Performed By: ? Ayaka Biswas RDMS Referred By: ?MOLLY WALLIS Location: ? [place] SERVICE(S) PROVIDED: [facility] - Hepatology Protocol - Abdominal ?57007 Limited Survey Single Organ or Quadrant - [id number] INDICATIONS: cirrhosis, screen for hcc, splenomegaly ------ [...] 08/08/2023 01:31 pm) PATIENT INFO: ID #: [id number] : 42 (83 yrs)(F) Name: MILKA MENDIETA Visit Date: 08/08/2023 11:27 am PERFORMED BY: Attending: Alisha Grove MD Resident: Mode Hubbard MD Performed By: Ayaka Biswas RDMS Referred By: MOLLY WALLIS Location: [place] [facility]S) [facility] - Hepatology Protocol - Abdominal 23410 Limited Survey Single Organ or Quadrant - [id number] INDICATIONS: cirrhosis, screen for hcc, splenomegaly ------ [...] by: Alisha Grove MD, [facility] ([phone]), at 08/08/2023 1:24 PM Thank you for letting us participate in the care of this patient. If you are a health care provider and have any questions regarding this report, please contact the number above. For patients who have questions, please contact the health foster care social worker that requested your imaging first. Alisha Grove, Staff Physician Electronically Signed Final Report 08/08/2023 01:31 pm Molly Wallis APRN [facility] GEN ORDERAB LES documented in this encounter Visit Diagnoses Diagnosis Hepatic cirrhosis, unspecified hepatic cirrhosis type, unspecified whether ascites present documented in this encounter Care Teams Coal Cutter Relationship Specialty Start Date End Date Salome Mcarthur APRN [address] [place] [address] PCP - General Family Medicine 05/30/15 12/11/23 documented as of this encounter
--- OUTSIDE RECORDS SUMMARY | 2024-04-20 15:52 | XMS_ITS | Encounter Summary ---
Author Organization [facility] [place] [address] Care Team Providers Care Ethics Manager Name Role Phone Salome Mcarthur APRN Primary Care Provider [phone] Reason for Visit * Auth/Cert Specialty Diagnoses / Procedures Referred By Jose berumdez Referred To Contact Diagnoses cirrhosis with varices, reassess. EGD ordered 05/2021 but not scheduled yet, new order with higher urgency placed. Procedures PRO UPPER GI ENDOSCOPY, DIAGNOSTIC EGD, UPPER GI ENDOSCOPY Ml Ayala MD [facility] [place] [address] [facility] Referral ID Status Reason Start Date Expiration Date Visits Re quested Visits Authorized [id number] 1 1 Encounter Details Date Type Department Care Team (Latest Contact Info) Description 01/31/2022 10:28 AM EDT - 01/31/2022 1:41 PM EDT Hospital [place] [address] Leland Ramos MD [facility] [address] Discharge Disposition: Home Social History Tobacco Use [...] the day after the procedure, use an qunc-zdh-ploxldg spray to numb your throat. Sucking on [...] occurs, please contact your Doctor. Please call [phone] before 8pm Mon-Fri with problems, questions or concerns. If you call after 8pm or on weekends, call the Hospital at [phone] and ask to speak to the Financial Advisor Trainee online publisher and the air table operator will contact that person for you. When should you call for help? Call [phone] anytime you think you may need emergency [...] After Visit Summary and more online at [email or web address] If you would like to provide [...] cost to you. Content Version: 12.2 ?? [id number] [facility]. Care instructions adapted under license by [facility]. If you have questions about a medical condition or this instruction, always ask your healthcare professional. [employer] disclaims any warranty or liability for your [...] directed. 05/02/2020 fluticasone propionate (FLONASE) 50 mcg/actuation [place], Suspension 1 spray daily. pramipexole (MIRAPEX) 0.125 [...] 04/28/2024 11:00 AM [place] [address] Molly Cui, [facility] [place] [address] 04/28/2024 2:00 PM EST [place] [address] Molly Cui, [facility] [address] documented as of this encounter Procedures Procedure Name Priority Date/Time Associated Diagnosis Comments Upper GI Endoscopy, Diagnostic (69022) 01/31/2022 11:11 AM EDT Hepatic cirrhosis, unspecified hepatic cirrhosis type, unspecified whether ascites present POCT GLUCOSE Routine 01/31/2022 10:51 AM EDT UPPER GI ENDOSCOPY Routine 01/31/2022 10 :36 AM EDT documented in this encounter Results * POCT Glucose (01/31/2022 10:51 AM EDT) Glucose, POC 123 65 - 199 mg/dL [facility] Comment: Supplemental ranges: <140 mg/dL before meals <180 mg/dL all other times of the day Blood 01/31/2022 10:5 1 AM EDT 01/31/2022 10:51 AM EDT Leland Ramos MD POINT OF CARE TEST O RDERABLES Performing Organization Address [facility]/ZIP Co de Phone Number [facility] [place] [address] * UPPER GI ENDOSCOPY (01/31/2022 10:36 AM EDT) [facility] UPPER GI ENDOSCOPY [facility] Endoscopy Procedure Date: 01/31/2022 10:36 AM ? Patient Name: Milka Corbett ? N: [id number] ? Date of : 1940 ? Age: 81 ? Order #: [id number] ? Instrument Name: [id number] ? Procedure: ? Upper GI endoscopy Indications: [...] ? physician, the nurse and the ? drinking water technician in the pre-procedure ? area in [...] RN) documented in this encounter Care Teams Ethics Manager Relationship Specialty Start Date End Date Salome Mcarthur, LORETO [address] [place] [address] PCP - General Family Medicine 05/30/15 12/11/23 documented as of this encounter
--- OUTSIDE RECORDS SUMMARY | 2024-04-20 15:52 | XMS_ITS | Encounter Summary ---
Author Organization [facility] [place] [address] Care Team Providers Care Manager Discovery Name Role Phone Salome Mcarthur APRN Primary Care Provider +[phone] Encounter Details Date Type Department Care Team [...] 04/28/2024 11:00 AM [place] [address] Molly Cui [facility] [place] [address] 04/28/2024 2:00 PM EST Office [place] [address] Molly Cui [facility] [place] [address] documented as of this encounter Visit Diagnoses Not on filedocumented in this encounter Care Teams Manager Discovery Relationship Specialty Start Date End Date Salome Mcarthur APRN [address] [address] PCP - General Family Medicine 05/30/15 12/11/23 documented as of this encounter
--- OUTSIDE RECORDS SUMMARY | 2024-04-20 15:52 | XMS_ITS | Encounter Summary ---
Author Organization [facility] [place] [address] Care Team Providers Care Vocational Case Manager Name Role Phone Salome Mcarthur APRN Primary Care Provider [phone] Encounter Details Date Type Department Care Team (Latest Contact Info) Description 06/06/2022 12:30 PM EST Laboratory Appointment Lab [address] [place] [address] Hepatic cirrhosis, unspecified hepatic cirrhosis [...] 04/28/2024 11:00 AM EST [place] [address] Molly Cui [facility] [place] [address] 04/28/2024 2:00 PM EST Office [place] [address] Molly Cui [facility] [place] [address] documented as of this encounter [...] 12:46 PM EST) Neutrophil % 55.9 % [facility] Neutrophil Absolute 3.25 1.70 - 6.10 x10(3)/[facility] Lymph % 30.1 % [facility] Lymphocytes Abs 1.8 0.9 - 3.2 x10(3)/[facility] Monocyte % 11.4 % [facility] Monocyte Abs 0.7 0.3 - 0.9 x10(3)/[facility] Eos % 1.9 % [facility] Eosinophils Abs 0.1 0.0 - 0.4 x10(3)/[facility] Basophil % 0.5 % [facility] Baso Absolute 0.0 0.0 - 0.1 x10(3)/[facility] Immature Gran % 0.20 % [facility] Comment: Immature granulocytes(IG's)percentage and absolute count will include metamyelocytes, myelocytes, and promyelocytes. Blood smears from CBCs yielding IG's will be scanned manually for concordance. If this scan disagrees with the automated IG or if promyelocytes are noted, a manual differential will be performed. Immature Gran Absolute 0.01 0.00 - 0.04 x10(3)/[facility] Blood 06/06/2022 12:4 6 PM EST 06/06/2022 12:49 PM EST Narrative Resulting Agency Comment Spec In Lab Molly Cui NIPPLE THREADER HEMATOLOGY ORDERAB LES Performing Organization Address City/[facility] Co de Phone Number [facility] [place] [address] * (ABNORMAL) Hemogram (06/06/2022 12:46 PM EST) White Blood Cell 5.8 4.0 - 9.5 x10(3)/[facility] Red Blood Cell 4.22 4.00 - 5.21 x10(6)/[facility] Hemoglobin 12.7 11.7 - 15.5 g/dL [facility] Hematocrit 38.7 35.7 - 45.8 % [facility] Mean Cell Volume 91.7 82.6 - 94.[address] [facility] Mean Cell Hemoglobin 30.1 27.1 - 32.[address] [facility] Mean Cell Hemoglobin Concentration 32.8 31.7 - 35.0 g/dL [facility] Platelet 85(L) 145 - 357 x10(3)/[facility] RDW Standard Deviation 45.1 37.0 - 46.[address] [facility] RDW coefficient of variation 13.3 11.5 - 14.1 % [facility] Mean Platelet Volume 11.2 7.6 - 12.[address] [facility] NRBC% auto 0.0 % [facility] NRBC Absolute 0.000 0.000 - 0.000 x10(3)/[facility] Blood 06/06/2022 12:4 6 PM EST 06/06/2022 12:49 PM EST Narrative Resulting Agency Comment Spec In Lab Molly A Foster NIPPLE THREADER HEMATOLOGY ORDERAB LES Performing Organization Address City/[facility]/ZIP Co de Phone Number [facility] [place] [address] * (ABNORMAL) Comprehensive metabolic panel (non-fasting) (06/06/2022 12:46 PM EST) Glucose 107 65 - 199 mg/dL [facility] Comment:Diabetes: >=200 mg/d L plus symptoms Blood Urea Nitrogen 15 8 - 18 mg/dL [facility] Creatinine 0.66(L) 0.70 - 1.20 mg/dL [facility] Sodium 141 135 - 145 mmol/L [facility] Potassium 4.2 3.5 - 5.0 mmol/L [facility] Comment: Please note: ??Patients with WBC >100,000 may have falsely elevated Potassium levels. ??For accurate Potassium quantification in these patients send serum separator tube (gold top) for subsequent determinations. ??Contact the Clinical Chemistry Laboratory if there are any questions. Chloride 104 98 - 107 mmol/L [facility] Carbon Dioxide 27 22 - 31 mmol/L [facility] Anion Gap 10 5 - 15 mmol/L [facility] Calcium 10.4 8.5 - 10.5 mg/dL [facility] Protein, Total 6.9 6.1 - 8.0 g/dL [facility] Albumin 4.3 3.2 - 5.2 g/dL [facility] Aspartate Aminotransferase 33(H) 0 - 30 unit/L [facility] Alanine Aminotransferase 34(H) 0 - 30 unit/L [facility] Alkaline Phosphatase 98 35 - 105 unit/L [facility] Bilirubin, Total 0.6 0.2 - 1.3 mg/dL [facility] Est Glomerular Filtration Rate 89 >=60 mL/min/1. 73 m?? [facility] Comment: This patient's estimated GFR [...] DANGELO CHEMISTRY ORDERABL ES Performing Organization Address [facility] Co de Phone Number [facility] [place] [address] * (ABNORMAL) Prothrombin Time (06/06/2022 12:46 PM EST) Prothrombin Time 12.9(H) 9.4 - 12.[address] [facility] International Normalization Ratio 1.[address] [facility] Comment: An INR <2.0 indicates [...] APRN HEMATOLOGY ORDERAB LES Performing Organization Address City/[facility]/ZIP Co de Phone Number [facility] [address] documented in this encounter Visit Diagnoses Diagnosis Hepatic cirrhosis, unspecified hepatic cirrhosis type, unspecified whether ascites present documented in this encounter Care Teams Vocational Case Manager Relationship Specialty Start Date End Date Salome Mcarthur APRN [address] [place] [id number] PCP - General Family Medicine 05/30/15 12/11/23 documented as of this encounter
--- OUTSIDE RECORDS SUMMARY | 2024-04-20 15:52 | XMS_ITS | Encounter Summary ---
Author Organization [facility] [place] [address] Care Team Providers Care Supervisor Estimator And Drafter Name Role Phone Salome Mcarthur APRN Primary Care Provider [phone] Encounter Details Date Type Department Care Team (Late st Contact Info) Description 08/08/2023 1:30 PM EDT Office [place] [phone] Molly Cui APRN [facility] [place] [address] Hepatic cirrhosis, unspecified hepatic cirrhosis type, unspecified [...] pain in her chest, She saw a pump service supervisor, considered R heart cath and patient declined. Gets pain after climbing stairs, pain went away when she stopped moving. Has had acid reflux previously, taking Omeprazole 2 pills, at same time of day. She had an upper endoscopy in January 2023 which did not show any signs of ongoing reflux. Taking Metoprolol, prescribed by pump service supervisor this winter. Tomorrow she is seeing [...] Vitals: 08/08/23 1338 BP: 129/56 BP Location ([facility]): Right arm Patient Position: Sitting [...] to do with PCP, Aysha Johnson in [place]. -Follow-up in 6 months with labs and ultrasound Molly Cui APRN Section of Gastroenterology [place] [address] Copy: Salome Mcarthur APRN [address] / [place] [address] Time spent reviewing records prior to this [...] 04/28/2024 11:00 AM EST Appointment Ultrasound at [place] [phone] Molly Cui APRN [facility] [place] [address] 04/28/2024 2:00 PM EST Office Visit Gastroenterology at [place] [phone] Molly Cui TAFFY CANDY MAKER [facility] [place] [address] Scheduled Orders Name Type Priority Associated Diagnoses [...] present documented in this encounter Care Teams Supervisor Estimator And Drafter Relationship Specialty Start Date End Date Salome Mcarthur APRN [address] [place] [address] PCP - General Family Medicine 05/30/15 12/11/23 documented as of this encounter
--- OUTSIDE RECORDS SUMMARY | 2024-04-20 15:52 | XMS_ITS | Encounter Summary ---
Author Organization [facility] [place] [address] Care Team Providers Care [place] Presser Name Role Phone Salome Mcarthur APRN Primary Care Provider [phone] Reason for Visit * Auth/Cert Specialty Diagnoses / Procedures Referred By Jose bermudez Referred To Contact Diagnoses cirrhosis with varices, reassess. EGD ordered 05/2021 but not scheduled yet, new order with higher urgency placed. Procedures PRO UPPER GI ENDOSCOPY, DIAGNOSTIC EGD, UPPER GI ENDOSCOPY Ml Ayala MD [facility] [place] [address] [facility] Referral ID Status Reason Start Date Expiration Date Visits Re quested Visits Authorized [id number] 1 1 Encounter Details Date Type Department Care Team (Late st Contact Info) Description 01/31/2022 11:30 AM EDT - 01/31/2022 12:00 PM EDT [place] [address] Leland Ramos MD [facility] [place] [address] EGD, UPPER GI ENDOSCOPY (WRVU 2.09) Social [...] the day after the procedure, use an ysyi-wce-[id number] spray to numb your throat. Sucking on [...] occurs, please contact your Doctor. Please call [phone] before 8pm Mon-Fri with problems, questions or concerns. If you call after 8pm or on weekends, call the Hospital at [phone] and ask to speak to the Art Therapist insulation cutter and the prefinish operator will contact that person for you. When should you call for help? Call [phone] anytime you think you may need emergency [...] any problems. Where can you learn more? [facility] View your After Visit Summary and more online at [email or web address] If you would like to [...] cost to you. Content Version: 12.2 ?? [id number] [employer] Care instructions adapted under license by [facility]. If you have questions about a medical condition or this instruction, always ask your healthcare professional. [employer] disclaims any warranty or liability for your [...] directed. 05/02/2020 fluticasone propionate (FLONASE) 50 mcg/actuation [place], Suspension 1 spray daily. pramipexole (MIRAPEX) 0.125 [...] 04/28/2024 11:00 AM [place] [address] Molly Cui, [facility] [place] [address] 04/28/2024 2:00 PM EST Office [place] [address] Molly Cui, [facility] [place] [address] documented as of this encounter Procedures Procedure Name Priority Date/Time Associated Diagnosis Comments Upper GI Endoscopy, Diagnostic (36597) 01/31/2022 11:11 AM EDT Hepatic cirrhosis, unspecified hepatic cirrhosis type, unspecified whether ascites present POCT GLUCOSE Routine 01/31/2022 10:51 AM EDT UPPER GI ENDOSCOPY Routine 01/31/2022 10 :36 AM EDT documented in this encounter Results * POCT Glucose (01/31/2022 10:51 AM EDT) Glucose, POC 123 65 - 199 mg/dL [facility] Comment: Supplemental ranges: <140 mg/dL before meals <180 mg/dL all other times of the day Blood 01/31/2022 10:5 1 AM EDT 01/31/2022 10:51 AM EDT Leland Ramos MD POINT OF CARE TEST O RDERABLES [facility] [place] [address] * UPPER GI ENDOSCOPY (01/31/2022 10:36 AM EDT) [facility] UPPER GI ENDOSCOPY [facility] Endoscopy Procedure Date: 01/31/2022 10:36 AM ? Patient Name: Milka Corbett ? N: [id number] ? Date of : 1940 ? Age: 81 ? Order #: [id number] ? Instrument Name: [id number] ? Procedure: ? Upper GI endoscopy Indications: [...] ? physician, the nurse and the ? system support technician in the pre-procedure ? area in [...] RN) documented in this encounter Care Teams [place] Presser Relationship Specialty Start Date End Date Salome Mcarthur, LAB[employer] [address] [place] [address] PCP - General Family Medicine 05/30/15 12/11/23 documented as of this encounter
--- OUTSIDE RECORDS SUMMARY | 2024-04-20 15:52 | XMS_ITS | Encounter Summary ---
Author Organization [facility] [place] [address] Care Team Providers Care Vocational Coordinator Name Role Phone Salome Mcarthur APRN Primary Care Provider [phone] Encounter Details Date Type Department Care Team (Late st Contact Info) Description 11/29/2021 1:00 PM EDT Office [place] [phone] Molly Wallis APRN [facility] [place] [place] [address] Hepatic cirrhosis, unspecified hepatic cirrhosis type, unspecified [...] daily. ??? fluticasone propionate (FLONASE) 50 mcg/actuation [place], Suspension 1 spray daily. ??? pramipexole (MIRAPEX) [...] Wallis APRN Section of Gastroenterology [place] [address] Copy: Salome Mcarthur APRN [address] / [place] [address] Time spent reviewing records prior to this [...] 04/28/2024 11:00 AM EST Appointment Ultrasound at [place] [phone] Molly Wallis APRN [facility] [place] [address] 04/28/2024 2:00 PM EST Office [place] [phone] Molly Wallis MEDICAL ADVISOR [facility] [place] [address] Scheduled Orders Name Type Priority Associated Diagnoses Orde r Schedule ENDOSCOPY CASE REQUEST: EGD, UPPER GI ENDOSCOPY Procedures Routine Hepatic cirrhosis, unspecified hepatic cirrhosis type, unspecified whether ascites present Ordered: 11/29/2021 documented as of this encounter Results * (ABNORMAL) Prothrombin Time (06/06/2022 12:46 PM EST) Prothrombin Time 12.9(H) 9.4 - 12.5 sec [facility] International Normalization Ratio 1.1 [facility] Comment: An INR <2.0 indicates [...] Agency Comment Spec In Lab Molly Wallis MEDICAL ADVISOR HEMATOLOGY ORDERAB LES [facility] [address] * (ABNORMAL) Comprehensive metabolic panel (non-fasting) (06/06/2022 12:46 PM EST) Glucose 107 65 - 199 mg/dL [facility] Comment:Diabetes: >=200 mg/d L plus symptoms Blood Urea Nitrogen 15 8 - 18 mg/dL [facility] Creatinine 0.66(L) 0.70 - 1.20 mg/dL [facility] Sodium 141 135 - 145 mmol/L [facility] Potassium 4.2 3.5 - 5.0 mmol/L [facility] Comment: Please note: ??Patients with WBC >100,000 may have falsely elevated Potassium levels. ??For accurate Potassium quantification in these patients send serum separator tube (gold top) for subsequent determinations. ??Contact the Clinical Chemistry Laboratory if there are any questions. Chloride 104 98 - 107 mmol/L [facility] Carbon Dioxide 27 22 - 31 mmol/L [facility] Anion Gap 10 5 - 15 mmol/L [facility] Calcium 10.4 8.5 - 10.5 mg/dL [facility] Protein, Total 6.9 6.1 - 8.0 g/dL [facility] Albumin 4.3 3.2 - 5.2 g/dL [facility] Aspartate Aminotransferase 33(H) 0 - 30 unit/L [facility] Alanine Aminotransferase 34(H) 0 - 30 unit/L [facility] Alkaline Phosphatase 98 35 - 105 unit/L [facility] Bilirubin, Total 0.6 0.2 - 1.3 mg/dL [facility] Est Glomerular Filtration Rate 89 >=60 mL/min/1. 73 m?? [facility] Comment: This patient's estimated GFR [...] City/State/[facility] Co de Phone Number [facility] [place] [address] * US Abdomen Limited Hepatology Protocol (06/06/2022 [...] have questions, please contact the health care technician that requested your imaging first. ? Avila Keith, Staff Physician Electronically Signed Final Report ?? 06/06/2022 11:54 am Narrative 06/06/2022 11:55 AM EST Abdominal ? (Signed Final 06/06/2022 11:54 am) PATIENT INFO: ID #: ? [id number] ?: ??[birth year] (81 yrs)(F) Name: ? MILKA MENDIETA ?Visit Date: 06/06/2022 11:20 am PERFORMED BY: Attending: ?Avlia Keith MD Performed By: ? Sosa Joshi RDMS Referred By: ?MOLLY WALLIS Secondary Phy.: ?? MOLLY WALLIS MEDICAL ADVISOR Location: ? [place] SERVICE(S) [facility] Hepat[facility] Protocol - Abdominal ?36345 Limited Survey Single Organ or Quadrant - [id number] INDICATIONS: cirrhosis, screen for hcc ------ LIVER: [...] 06/06/2022 11:54 am) PATIENT INFO: ID #: [id number] : 42 (81 yrs)(F) Name: MILKA MENDIETA Visit Date: 06/06/2022 11:20 am PERFORMED BY: Attending: Avila Keith MD Performed By: Sosa Joshi RDMS Referred By: MOLLY WALLIS Secondary Phy.: MOLLY WALLIS APRN Location: [place] SERVICE(S) PROVIDED: [facility] - Hepatology Protocol - Abdominal 35611 Limited Survey Single Organ or Quadrant - [id number] INDICATIONS: cirrhosis, screen for hcc ------ LIVER: [...] have questions, please contact the health care technician that requested your imaging first. Avila Keith, Staff Physician Electronically Signed Final Report 06/06/2022 11:54 am Molly Wallis APRN IMG GEN ORDERAB LES documented in this encounter Visit Diagnoses Diagnosis Hepatic cirrhosis, unspecified hepatic cirrhosis type, unspecified whether ascites present Hepatic cirrhosis, unspecified hepatic cirrhosis type, unspecified whether ascites present documented in this encounter Care Teams Vocational Coordinator Relationship Specialty Start Date End Date Salome Mcarthur APRN [address] [place] [address] PCP - General Family Medicine 05/30/15 12/11/23 documented as of this encounter
--- OUTSIDE RECORDS SUMMARY | 2024-04-20 15:52 | XMS_ITS | Encounter Summary ---
Author Organization [facility] Address [facility] [place] [address] Care Team Providers Care Rotary Operator Name Role Phone Salome Mcarthur APRN Primary Care Provider Encounter Details Date Type Department Care Team (Latest Contact Info) Description 11/29/2021 9:45 AM EDT - 11/29/2021 11:59 PM EDT Hospital [place] [phone] Molly Wallis PLANT ANATOMIST [facility] [place] [address] Hepatic cirrhosis, unspecified hepatic cirrhosis type, unspecified [...] directed. 05/02/2020 fluticasone propionate (FLONASE) 50 mcg/actuation [place], Suspension 1 spray daily. pramipexole (MIRAPEX) 0.125 [...] 04/28/2024 11:00 AM EST [place] [address] Molly Wallis, [facility] [address] 04/28/2024 2:00 PM EST Office [place] [phone] Molly Wallis, [facility] [place] [address] documented as of this encounter Procedures Procedure [...] who have questions, please contact the health menagerie caretaker that requested your imaging first. ?Avila Keith, Staff Physician Electronically Signed Final Report ?? 11/29/2021 10:30 am Narrative 11/29/2021 10:30 AM EDT Abdominal ? (Signed Final 11/29/2021 10:30 am) PATIENT INFO: ID #: ? [id number] ?: ??[birth year] (81 yrs)(F) Name: ? MILKA MENDIETA ?Visit Date: 11/29/2021 10:17 am PERFORMED BY: Performed By: ? Dea Mata RDMS Attending: ?Avila Keith MD Referred By: ?MOLLY WALLIS Secondary Phy.: ?? MOLLY WALLIS PLANT ANATOMIST Location: ? [place] SERVICE(S) PROVIDED: [facility] - Hepatology Protocol - Abdominal ?37534 Limited Survey Single Organ or Quadrant - [id number] INDICATIONS: cirrhosis, screen for hcc COMPARISON: US: [...] 11/29/2021 10:30 am) PATIENT INFO: ID #: [id number] : 42 (81 yrs)(F) Name: MILKA MENDIETA Visit Date: 11/29/2021 10:17 am PERFORMED BY: Performed By: Dea Mata RDMS Attending: Avila Keith MD Referred By: MOLLY WALLIS [facility] Phy.: MOLLY WALLIS APRN Location: [place] [facility]S) [facility] - Hep[facility] Protocol - Abdominal 14229 Limited Survey Single Organ or Quadrant - [id number] INDICATIONS: cirrhosis, screen for hcc COMPARISON: US: [...] signed by: Avila [place] MD, [facility] ([phone]), at 11/29/2021 10:23 AM Thank you for letting us participate in the care of this patient. If you are a health care provider and have any questions regarding this report, please contact the number above. For patients who have questions, please contact the health menagerie caretaker that requested your imaging first. Avila Keith, Staff Physician Electronically Signed Final Report 11/29/2021 10:30 am Molly Wallis APRN [facility] US GEN ORDERAB LES documented in this encounter Visit Diagnoses Diagnosis Hepatic cirrhosis, unspecified hepatic cirrhosis type, unspecified whether ascites present documented in this encounter Care Teams Rotary Operator Relationship Specialty Start Date End Date Salome Mcarthur APRN [address] [place] [address] PCP - General Family Medicine 05/30/15 12/11/23 documented as of this encounter
--- OUTSIDE RECORDS SUMMARY | 2024-04-20 15:52 | XMS_ITS | Encounter Summary ---
[place] [address] Care Team Providers Care Nutrition Educator Name Role Phone Salome Mcarthur APRN Primary Care Provider [phone] Encounter Details Date Type Department Care Team (Late st Contact Info) Description 05/13/2023 Telephone [place] [address] Lisette Nicholson Social History Tobacco [...] 04/28/2024 11:00 AM EST [place] [phone] Molly Cui APRN [facility] [place] [address] 04/28/2024 2:00 PM EST Office [place] [address] Molly uCi APRN [facility] [place] [address] documented as of this encounter Visit Diagnoses Not on filedocumented in this encounter Care Teams Nutrition Educator Relationship Specialty Start Date End Date Salome Mcarthur APRN [address] [place] [address] PCP - General Family Medicine 05/30/15 12/11/23 documented as of this encounter
--- OUTSIDE RECORDS SUMMARY | 2024-04-20 15:53 | XMS_ITS | Encounter Summary ---
Author Organization [facility] [address] Care Team Providers Care Shared Services And Outsourcing Manager Name Role Phone Salome Mcarthur APRN Primary Care Provider +1 [phone] Encounter Details Date Type Department Care Team (Late st Contact Info) Description 11/02/2019 Orders [place] [phone] Molly Wallis ELECTRIC SHOVEL OPERATOR [facility] [place] [address] Hepatic cirrhosis, unspecified hepatic cirrhosis type, unspecified [...] 04/28/2024 11:00 AM EST [place] [phone] Molly Wallis ELECTRIC SHOVEL OPERATOR [facility] [place] [address] 04/28/2024 2:00 PM EST Office [place] [phone] Molly Wallis ELECTRIC SHOVEL OPERATORFORMERLY [facility] [place] [address] documented as of this encounter Results * [...] 11:57 am) PATIENT INFO: ID #: ? [id number] ?: ??[birth year] (79 yrs)(F) Name: ? MILKA MENDIETA ?Visit Date: 05/19/2020 11:19 am PERFORMED BY: Performed By: ? Gabi Mtz RDMS Attending: ?Alisha Grove MD. Resident: ? Tacho Guajardo MD Referred By: ?MOLLY WALLIS Secondary Phy.: ?? MLOLY WALLIS ELECTRIC SHOVEL OPERATOR Location: ? [place] SERVICE(S) PROVIDED: ??UABDLIM - Hepatology Protocol - Abdominal ? 73493 ??Limited Survey Single Organ or Quadrant - ??[id number] INDICATIONS: ??cirrhosis, screen for hcc ------ LIVER: [...] 05/19/2020 11:57 am) PATIENT INFO: ID #: [id number] : [birth year] (79 yrs)(F) Name: MILKA MENDIETA Visit Date: 05/19/2020 11:19 am PERFORMED BY: Performed By: Gabi Mtz RDMS Attending: Alisha Grove MD Resident: Tacho Guajardo MD Referred By: MOLLY WALLIS [facility] Phy.: MOLLY WALLIS APRN Location: [place] SERVICE[facility]S) [facility] - Hepatology Protocol - Abdominal 47816 Limited Survey Single Organ or Quadrant - [id number] INDICATIONS: cirrhosis, screen for hcc ------ LIVER: [...] HEMATOLOGY ORDERAB LES [facility] [place] [address] * (ABNORMAL) Comprehensive metabolic panel (non-fasting) (05/19/2020 [...] CHEMISTRY ORDERABL ES [facility] [place] [address] documented in this encounter Visit Diagnoses Diagnosis Hepatic cirrhosis, unspecified hepatic cirrhosis type, unspecified whether ascites present Hepatic cirrhosis, unspecified hepatic cirrhosis type, unspecified whether ascites present documented in this encounter Care Teams Shared Services And Outsourcing Manager Relationship Specialty Start Date End Date Salome Mcarthur, ELECTRIC SHOVEL OPERATOR [address] [place] [address] PCP - General Family Medicine 05/30/15 12/11/23 documented as of this encounter
--- OUTSIDE RECORDS SUMMARY | 2024-04-20 15:53 | XMS_ITS | Encounter Summary ---
Author Organization [facility] Address [facility] [place] [address] Care Team Providers Care Volunteer Services Supervisor Name Role Phone Salome Mcarthur APRN Primary Care Provider [phone] Reason for Visit * Auth/Cert Specialty Diagnoses [...] Expiration Date Visits Re quested Visits Authorized [id number] 1 1 Encounter Details Date Type Department Care Team (Late st Contact Info) Description 09/26/2020 2:30 PM EDT - 09/26/2020 3:00 PM EDT Surgery [place] [address] Braulio Bailey MD [facility] [place] [address] EGD, UPPER GI ENDOSCOPY (WRVU 2.09) Social [...] the day after the procedure, use an qiui-qmb-barhybg spray to numb your throat. Sucking on [...] occurs, please contact your Doctor. Please call [phone] before 8pm Mon-Fri with problems, questions or concerns. If you call after 8pm or on weekends, call the Hospital at [phone] and ask to speak to the Gullet Slitter ethylbenzene converter operator and the bullet casting operator will contact that person for you. When should you call for help? Call [phone] anytime you think you may need emergency [...] Where can you learn more? [facility]- View your After Visit Summary and more online at [email or web address] If you would like to provide [...] cost to you. Content Version: 12.2 ?? 9372-1030 trueEX. Care instructions adapted under license by [facility]. If you have questions about a medical condition or this instruction, always ask your healthcare professional. [employer] disclaims any warranty or liability for your [...] directed. 05/02/2020 fluticasone propionate (FLONASE) 50 mcg/actuation [place], Suspension 1 spray daily. pramipexole (MIRAPEX) 0.125 [...] Operative Note Patient Name: Milka Corbett : [id number] MR#: [id number] Case Date: 09/26/2020 Surgeon: Surgeon(s) and Role: * Braulio Bailey MD - Primary Procedure(s): EGD, UPPER GI ENDOSCOPY Please see Provation report for details. documented in this encounter Plan of Treatment Upcoming Encounters Date Type Department Care Team (Late st Contact Info) Description 04/28/2024 11:00 AM EST Appointment [place] [address] Molly Cui, [facility] [place] [address] 04/28/2024 2:00 PM EST Office [place] [address] Molly Cui, [facility] [place] [address] documented as of this encounter Procedures Procedure Name Priority Date/Time Associated Diagnosis Comments EGD, UPPER GI ENDOSCOPY (WRVU 2.09) 09/26/2020 2:12 PM EDT Hepatic cirrhosis, unspecified hepatic cirrhosis type, unspecified whether ascites present UPPER GI ENDOSCOPY Routine 09/26/2020 1: 55 PM EDT POCT GLUCOSE Routine 09/26/2020 1:42 PM EDT documented in this encounter Results * UPPER GI ENDOSCOPY (09/26/2020 1:55 PM EDT) [facility] UPPER GI ENDOSCOPY [facility] Endoscopy Procedure Date: 09/26/2020 1:55 PM ? Patient Name: Milka Corbett ? Date of : 1940 ? Age: 80 ? Order #: [id number] ? Instrument Name: [id number] LOANER ? Procedure: ? Upper GI endoscopy [...] Procedure Code(s): ?? --- Professional --- ? 94613, Esophagogastroduod enoscopy, ? flexible, transoral; diagnostic, ? including collection of specimen(s) ? by brushing or washing, when ? performed (separate procedure) Diagnosis Code(s): ?? --- Professional --- ? K29.70, Gastritis, unspecified, ? without bleeding ? 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 --- Technical --- ? K29.70, Gastritis, unspecified, ? without bleeding ? 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 All rights reserved. The codes documented in this report are preliminary and upon commodity manager review may be revised to meet current compliance requirements. Attending Participation: ? I personally performed the entire procedure. ? Braulio Bailey, 09/26/2020 2:38:44 PM Number of Addenda: 0 Note Initiated On: 09/26/2020 1:55 PM [facility]OVATION 09/26/2020 1:55 PM EDT Salome Mcarthur REFERENCE INVESTIGATOR GENERAL SURGICAL OR DERABLES PROVATION * POCT Glucose (09/26/2020 1:42 PM EDT) Glucose, POC 88 65 - 199 mg/dL [facility] Comment: Supplemental ranges: <140 mg/dL before meals <180 mg/dL all other times of the day Blood 09/26/2020 1:42 PM EDT 09/25/2020 12:00 PM EDT Jean Claude Chacon MD POINT OF CARE TEST O RDERABLES [facility] [place] [address] documented in this encounter Visit Diagnoses Diagnosis [...] RN) documented in this encounter Care Teams Volunteer Services Supervisor Relationship Specialty Start Date End Date Salome Mcarthur APRN [address] [place] [address] PCP - General Family Medicine 05/30/15 12/11/23 documented as of this encounter
--- OUTSIDE RECORDS SUMMARY | 2024-04-20 15:53 | XMS_ITS | Encounter Summary ---
Author [facility] [place] [address] Care Team Providers Care Rubber Tile Floor Layer Name Role Phone Salome Mcarthur APRN Primary Care Provider [phone] Encounter Details Date Type Department Care Team (Late st Contact Info) Description 05/19/2020 12:30 PM EST Office [place] [address] Molly Wallis APRN [facility] [place] [address] Hepatic cirrhosis, unspecified hepatic cirrhosis type, unspecified [...] about moving, but haven't moved out of [place]. She denies any ascites, blood in stool, [...] Apply 1 Application topically as needed. ??? [place]-3 Fatty Acids-Vitamin E (FISH OIL) 1,000 mg [...] Wallis APRN Section of Gastroenterology [place] [address] Copy: Salome Mcarthur APRN [address] / [place] [address] Time spent reviewing records prior to this [...] 04/28/2024 11:00 AM EST [place] [address] Molly Wallis APRN [facility] [place] [address] 04/28/2024 2:00 PM EST Office [place] [phone] Molly Wallis APRN [facility] [place] [address] Scheduled Orders Name Type Priority Associated Diagnoses Orde r Schedule ENDOSCOPY CASE REQUEST: EGD, UPPER GI ENDOSCOPY Procedures Routine Hepatic cirrhosis, unspecified hepatic cirrhosis type, unspecified whether ascites present Ordered: 05/19/2020 documented as of this encounter Results * Prothrombin Time (12/06/2020 12:34 PM EDT) Prothrombin Time 11.9 9.4 - 12.5 sec [facility] International Normalization Ratio 1.0 [facility] Comment: An [...] ORDERAB LES [facility] [place] [address] * (ABNORMAL) Comprehensive metabolic panel (non-fasting) (12/06/2020 12:34 PM EDT) Glucose 90 65 - 199 mg/dL [facility] Comment:Diabetes: >=200 mg/d L plus symptoms Blood Urea Nitrogen 23(H) 8 - 18 mg/dL [facility] Creatinine 0.78 0.70 - 1.20 mg/dL [facility] Sodium 141 135 - 145 mmol/L [facility] Potassium 4.4 3.5 - 5.0 mmol/L [facility] Comment: Please note: ??Patients with WBC >100,000 may have falsely elevated Potassium levels. ??For accurate Potassium quantification in these patients send serum separator tube (gold top) for subsequent determinations. ??Contact the Clinical Chemistry Laboratory if there are any questions. Chloride 103 98 - 107 mmol/L [facility] Carbon Dioxide 26 22 - 31 mmol/L [facility] Anion Gap 12 5 - 15 mmol/L [facility] Calcium 10.2 8.5 - 10.5 mg/dL [facility] Protein, Total 6.9 6.1 - 8.0 gm/dL [facility] Albumin 4.2 3.2 - 5.2 gm/dL [facility] Aspartate Aminotransferase 35(H) 0 - 30 unit/L [facility] Alanine Aminotransferase 36(H) 0 - 30 unit/L [facility] Alkaline Phosphatase 82 35 - 105 unit/L [facility] Bilirubin, Total 0.7 0.2 - 1.3 mg/dL [facility] Est Glomerular Filtration Rate 72 >=60 mL/min/1. 73 m?? [facility] [...] ORDERABL ES [facility] [place] [address] * US Abdomen Limited Hepatology Protocol (09/26/2020 [...] who have questions please contact the health clinical care manager that requested your imaging first. Electronically signed by: Meghan Cardozo MD, [facility] ([phone]), at 09/26/2020 11:48 AM Thank you for letting us participate in the care of this patient. If you are a health care provider and have any questions regarding this report, please contact the number below. For patients who have questions, please contact the health clinical care manager that requested your imaging first. ??Meghan Cardozo, [facility] & Dept Chair - Rad Electronically Signed Final Report ?? 09/26/2020 11:56 am Narrative 09/26/2020 11:57 AM EDT Abdominal ? (Signed Final 09/26/2020 11:56 am) PATIENT INFO: ID #: ? [id number] ?: ??[birth year] (80 yrs)(F) Name: ? MILKA MENDIETA ?Visit Date: 09/26/2020 11:29 am PERFORMED BY: Performed By: ? Crista Zhong RDMS Attending: ?Juliane GALLO, Meghan Ventura Referred By: ?MOLLY WALLIS Secondary Phy.: ?? MOLLY WALLIS APRN Location: ? [place] SERVICE(S) PROVIDED: UABDLIM - Hepatology Protocol - Abdominal ? 34043 Limited Survey Single Organ or Quadrant - [id number] INDICATIONS: cirrhosis, screen for hcc COMPARISON: US: [...] 09/26/2020 11:56 am) PATIENT INFO: ID #: [id number] : [birth year] (80 yrs)(F) Name: MILKA MENDIETA Visit Date: 09/26/2020 11:29 am PERFORMED BY: Performed By: Crista Zhong RDMS Attending: Meghan Cardozo MD Referred By: MOLLY WALLIS [facility] Phy.: MOLLY WALLIS APRN Location: [place] SERVICE(S) [facility]: [facility] - Hepatology Protocol - Abdominal 98434 Limited Survey Single Organ or Quadrant - [id number] INDICATIONS: cirrhosis, screen for hcc COMPARISON: US: [...] who have questions please contact the health clinical care manager that requested your imaging first. Electronically signed by: Meghan Cardozo MD, [facility] ([phone]), at 09/26/2020 11:48 AM Thank you for letting us participate in the care of this patient. If you are a health care provider and have any questions regarding this report, please contact the number below. For patients who have questions, please contact the health clinical care manager that requested your imaging first. Meghan Cardozo, [facility] & Dept Chair - Rad Electronically Signed Final Report 09/26/2020 11:56 am Molly GRACE US GEN ORDERAB LES documented in this encounter Visit Diagnoses Diagnosis Hepatic cirrhosis, unspecified hepatic cirrhosis type, unspecified whether ascites present Hepatic cirrhosis, unspecified hepatic cirrhosis type, unspecified whether ascites present documented in this encounter Care Teams Rubber Tile Floor Layer Relationship Specialty Start Date End Date Salome Mcarthur APRN [address] [place] [address] PCP - General Family Medicine 05/30/15 12/11/23 documented as of this encounter
--- OUTSIDE RECORDS SUMMARY | 2024-04-20 15:53 | XMS_ITS | Encounter Summary ---
Author Organization [facility] Address [facility] [place] [address] Care Team Providers Care Career Development Counselor Name Role Phone Salome Mcarthur APRN Primary Care Provider [phone] [phone] Encounter Details Date Type Department Care Team (Late st Contact Info) Description 05/26/2020 Telephone [place] [phone] Sandra Aguilar Social History Tobacco Use Types [...] - 05/26/2020 10:27 AM EST Milka Corbett [id number] Diagnosis/Indication: cirrhosis, screen for varices. small varices [...] to patient: You must have a responsible alliance party [...] 04/28/2024 11:00 AM EST Appointment [place] [address] Molly Cui [facility] [place] [address] 04/28/2024 2:00 PM EST Office [place] [address] Molly Cui [facility] [place] [address] documented as of this encounter Visit Diagnoses Not on filedocumented in this encounter Care Teams Career Development Counselor Relationship Specialty Start Date End Date Salome Mcarthur APRN [address] [place] [address] PCP - General Family Medicine 05/30/15 12/11/23 documented as of this encounter
--- OUTSIDE RECORDS SUMMARY | 2024-04-20 15:53 | XMS_ITS | Encounter Summary ---
[place] [address] Care Team Providers Care Centralized Traffic Control Operator Name Role Phone Salome Mcarthur APRN Primary Care Provider +[phone] Reason for Visit * Auth/Cert Specialty Diagnoses / Procedures Referred By Jose bermudez Referred To Contact Diagnoses 1 yr surv from 09/17/18 Procedures PRO UPPER GI ENDOSCOPY, DIAGNOSTIC EGD, UPPER GI ENDOSCOPY Referral ID Status Reason Start Date Expiration Date Visits Re quested Visits Authorized [id number] 1 1 Encounter Details Date Type Department Care Team (Late st Contact Info) Description 09/23/2019 11:30 AM EDT - 09/23/2019 12:15 PM EDT [place] [phone] Juliette Chauhan MD [facility] [place] [address] EGD, UPPER GI ENDOSCOPY (WRVU 2.09) Social [...] the day after the procedure, use an wxye-pms-mwqcwlo spray to numb your throat. Sucking on [...] occurs, please contact your Doctor. Please call [phone] before 8pm Mon-Fri with problems, questions or concerns. If you call after 8pm or on weekends, call the Hospital at [phone] and ask to speak to the Still Operator Helper roll on man and the long wall shear operator will contact that person for you. When should you call for help? Call [phone] anytime you think you may need emergency [...] any problems. Where can you learn more? [facility] View your After Visit Summary and more online at [email or web address] If you would like to provide feedback about your hospital experience, please call the Office of Patient and Family Relations at . If you have received this After Visit Summary in error, please immediately return it in person to the department, or notify the [facility] Privacy Office by calling toll free at between the hours of 8AM and 5PM to arrange for our retrieval of the documents at no cost to you. Content Version: 12.2 ?? 0011-3545 [employer]ictorious. Care instructions adapted under license by [facility]. If you have questions about a medical condition or this instruction, always ask your healthcare professional. [employer] disclaims any warranty or liability for your use of this information. documented in this encounter Medications at Time of Discharge Medication Sig Dispensed Refills Start Date End Date lisinopriL (Zestril) 10 mg tablet Take 1 tablet by mouth once a day for kidney protection 06/06/2009 fluticasone propionate (FLONASE) 50 mcg/actuation [place], Suspension 1 spray daily. pramipexole (MIRAPEX) 0.125 [...] 04/28/2024 11:00 AM [place] [address] Molly Cui, [facility] [place] [address] 04/28/2024 2:00 PM EST Office [place] [address] Molly Cui, [facility] [place] [address] documented as of this encounter Procedures Procedure Name Priority Date/Time Associated Diagnosis Comments Upper GI Endoscopy, Diagnostic (83819) 09/23/2019 11:55 AM EDT 1 yr surv from 09/17/18 UPPER GI ENDOSCOPY Routine 09/23/2019 11 :41 AM EDT documented in this encounter Results * UPPER GI ENDOSCOPY (09/23/2019 11:41 AM EDT) [facility] UPPER GI ENDOSCOPY [facility] Endoscopy Procedure Date: 09/23/2019 11:41 AM ? Patient Name: Milka Corbett ? Date of : 1940 ? Age: 79 ? Order #: [id number] ? Instrument Name: [id number] ? Procedure: ? Upper GI endoscopy Indications: ? Follow-up of esophageal varices Providers: ? Juliette Chauhan MD, Bertha Lizarraga ? TRISHA Oleary, Fauzia Castillo ? TRISHA Kang, Genoveva Webber, Corporate Security Officer Referring : ?Sophia Mcarthur MD Medicines: ? [...] Procedure Code(s): ?? --- Professional --- ? 90890, Esophagogastroduod enoscopy, ? flexible, transoral; diagnostic, ? including collection of specimen(s) ? by brushing or washing, when ? performed (separate procedure) CPT copyright 2019 [employer]. All rights reserved. The codes documented in this report are preliminary and upon oyster grower review may be revised to meet current [...] RN) documented in this encounter Care Teams Centralized Traffic Control Operator Relationship Specialty Start Date End Date Salome Mcarthur APRN [address] [place] [address] PCP - General Family Medicine 05/30/15 12/11/23 documented as of this encounter
--- OUTSIDE RECORDS SUMMARY | 2024-04-20 15:53 | XMS_ITS | Encounter Summary ---
Author Organization [facility] [place] [address] Care Team Providers Care Lgsw Name Role Phone Salome Mcarthur APRN Primary Care Provider +[phone] Encounter Details Date Type Department Care Team (Late st Contact Info) Description 12/06/2020 2:00 PM EDT Office [place] [address] Molly Wallis APRN [facility] [place] [address] Hepatic cirrhosis, unspecified hepatic cirrhosis type, unspecified [...] daily. ??? fluticasone propionate (FLONASE) 50 mcg/actuation [place], Suspension 1 spray daily. ??? pramipexole (MIRAPEX) [...] mouth as needed. Reported on 08/21/2016 ??? [place]-3 Fatty Acids-Vitamin E (FISH OIL) 1,000 mg [...] Wallis APRN Section of Gastroenterology [place] [address] Copy: Salome Mcarthur APRN [address] / [employer] [address] Time spent reviewing records prior to this [...] AM EST App[place] [address] Molly Wallis APRN [facility] [place] [address] 04/28/2024 2:00 PM EST Office [place] [address] Molly Wallis COMMERCIAL TITLE EXAMINER [facility] [place] [address] documented as of this encounter Results * [...] Lab Molly Wallis APRN HEMATOLOGY ORDERAB LES [facility] [place] [address] * (ABNORMAL) Comprehensive metabolic panel (non-fasting) (06/01/2021 [...] ES [facility] [place] [address] * US Abdomen Limited Hepatology Protocol (06/01/2021 [...] who have questions, please contact the health resident care spec that requested your imaging first. ?Marilee Her, Staff Physician Electronically Signed Final Report ?? 06/01/2021 10:01 am Narrative 06/01/2021 10:02 AM EST Abdominal ? (Signed Final 06/01/2021 10:01 am) PATIENT INFO: ID #: ? [id number] ?: ??[birth year] (80 yrs)(F) Name: ? MILKA MENDIETA ?Visit Date: 06/01/2021 09:47 am PERFORMED BY: Performed By: ? Lana Gotti RDMS Attending: ?Betty GALLO, Marilee Ragsdale Referred By: ?MOLLY WALLIS Secondary Phy.: ?? MOLLY WALLIS COMMERCIAL TITLE EXAMINER Location: ? [place] SERVICE(S) PROVIDED: UABDLIM - Hepatology Protocol - Abdominal ? 58998 Limited Survey Single Organ or Quadrant - [id number] INDICATIONS: cirrhosis, screen for hcc ------ LIVER: [...] 06/01/2021 10:01 am) PATIENT INFO: ID #: [id number] : [birth year] (80 yrs)(F) Name: MILKA MENDIETA Visit Date: 06/01/2021 09:47 am PERFORMED BY: Performed By: Lana Gotti RDMS Attending: Marilee Hernández MD Referred By: MOLLY WALLIS [facility] Phy.: MOLLY WALLIS APRN Location: [place] SERVICE(S) [facility] - Hepatology Protocol - Abdominal 58796 Limited Survey Single Organ or Quadrant - [id number] INDICATIONS: cirrhosis, screen for hcc ------ LIVER: [...] who have questions, please contact the health resident care spec that requested your imaging first. Marilee Her, Staff Physician Electronically Signed Final Report 06/01/2021 10:01 am Molly Wallis APRN IMG GEN ORDERAB LES documented in this encounter Visit Diagnoses Diagnosis Hepatic cirrhosis, unspecified hepatic cirrhosis type, unspecified whether ascites present Hepatic cirrhosis, unspecified hepatic cirrhosis type, unspecified whether ascites present documented in this encounter Care Teams Lgsw Relationship Specialty Start Date End Date Salome Mcarthur APRN [address] [place] [address] PCP - General Family Medicine 05/30/15 12/11/23 documented as of this encounter
--- OUTSIDE RECORDS SUMMARY | 2024-04-20 15:53 | XMS_ITS | Encounter Summary ---
Author Organization [facility] Address [facility] [address] Care Team Providers Care Ward Clerk Name Role Phone Salome Mcarthur APRN Primary Care Provider [phone] Reason for Visit * Auth/Cert Specialty Diagnoses [...] Expiration Date Visits Re quested Visits Authorized [id number] 1 1 Encounter Details Date Type Department Care Team (Latest Contact Info) Description 09/26/2020 11:28 AM EDT - 09/26/2020 12:49 PM EDT Hospital [place] [address] Molly Wallis APRN [facility] [place] [address] Hepatic cirrhosis, unspecified hepatic cirrhosis type, unspecified [...] directed. 05/02/2020 fluticasone propionate (FLONASE) 50 mcg/actuation [place], Suspension 1 spray daily. pramipexole (MIRAPEX) [...] 11:00 AM EST [place] [address] Molly Wallis, [facility] [place] [address] 04/28/2024 2:00 PM EST Office [place] [phone] Molly Wallis, [facility] [place] [address] documented as of this encounter Procedures Procedure [...] questions please contact the health child care associate teacher that requested your imaging first. Electronically signed by: Meghan Cardozo MD, [facility] ([phone]), at 09/26/2020 11:48 AM Thank you for letting us participate in the care of this patient. If you are a health care provider and have any questions regarding this report, please contact the number below. For patients who have questions, please contact the health child care associate teacher that requested your imaging first. ??Meghan Cardozo, [facility] & Dept Chair - Rad Electronically Signed Final Report ?? 09/26/2020 11:56 am Narrative 09/26/2020 11:57 AM EDT Abdominal ? (Signed Final 09/26/2020 11:56 am) PATIENT INFO: ID #: ? [id number] ?: ??[birth year] (80 yrs)(F) Name: ? MILKA Yue MENDIETA ?Visit Date: 09/26/2020 11:29 am PERFORMED BY: Performed By: ? Crista Zhong RDMS Attending: ?Juliane GALLO, Meghan Ventura Referred By: ?MOLLY WALLIS Secondary Phy.: ?? MOLLY WALLIS COPIER TECHNICIAN Location: ? [place] SERVICE(S) PROVIDED: UABDLIM - Hepatology Protocol - Abdominal ? 20127 Limited Survey Single Organ or Quadrant - [id number] INDICATIONS: cirrhosis, screen for hcc COMPARISON: US: [...] 09/26/2020 11:56 am) PATIENT INFO: ID #: [id number] : 42 (80 yrs)(F) Name: MILKA MENDIETA Visit Date: 09/26/2020 11:29 am PERFORMED BY: Performed By: Crista Zhong RDMS Attending: Meghan Cardozo MD Referred By: MOLLY WALLIS [facility] Phy.: MOLLY WALLIS COPIER TECHNICIAN Location: [place] SERVICE(S) PROVIDED: BDLIM - Hepatology Protocol - Abdominal 56329 Limited Survey Single Organ or Quadrant - [id number] INDICATIONS: cirrhosis, screen for hcc COMPARISON: US: [...] questions please contact the health child care associate teacher that requested your imaging first. Electronically signed by: Meghan Cardozo MD, [facility] ([phone]), at 09/26/2020 11:48 AM Thank you for letting us participate in the care of this patient. If you are a health care provider and have any questions regarding this report, please contact the number below. For patients who have questions, please contact the health child care associate teacher that requested your imaging first. Meghan Cardozo, [facility] & Dept Chair - Rad Electronically Signed Final Report 09/26/2020 11:56 am Molly Wallis APRN [facility] GEN ORDERAB LES documented in this encounter Visit Diagnoses Diagnosis Hepatic cirrhosis, unspecified hepatic cirrhosis type, unspecified whether ascites present documented in this encounter Care Teams Ward Clerk Relationship Specialty Start Date End Date Salome Mcarthur APRN [address] [address] PCP - General Family Medicine 05/30/15 12/11/23 documented as of this encounter
--- OUTSIDE RECORDS SUMMARY | 2024-04-20 15:53 | XMS_ITS | Encounter Summary ---
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 [place] [address] Discharge Disposition: Home Social History Tobacco Use [...] better as expected. Saturday-Saturday Same Day Endo [phone] 7a-8p Otherwise contact [phone] and ask to speak to the job coach/job developer admissions officer Follow-up care is a palomo part of your treatment and safety. Be sure to make and go to all appointments, and call your doctor if you are having problems. Instructions have been reviewed and patient expresses understanding Please call [phone] before 8pm Sat-Sat with problems, questions or concerns. If you call after 8pm or on weekends, call the Hospital at [phone] and ask to speak to the Emotional Support Teacher admissions officer and the electric pile driver operator will contact that person for you. [...] WHEN SHOULD YOU CALL FOR HELP? Call [phone] anytime you think that you need emergency [...] better as expected. Saturday-Saturday Same Day Endo [phone] 7a-8p Otherwise contact [phone] and ask to speak to the job coach/job developer admissions officer Follow-up care is a palomo part of [...] protection 06/06/2009 fluticasone propionate (FLONASE) 50 mcg/actuation [place], Suspension 1 spray daily. pramipexole (MIRAPEX) 0.125 [...] Electronically signed by: Kehinde Martin Gastroenterology Fellow [facility] Pager [phone] 09/17/2018 documented in this encounter Plan of Treatment Upcoming Encounters Date Type Department Care Team (Late st Contact Info) Description 04/28/2024 11:00 AM EST [place] [address] Molly Cui, [facility] [place] [address] 04/28/2024 2:00 PM EST Office [place] [phone] Molly Cui, [facility] [place] [address] documented as of this encounter Procedures Procedure Name Priority Date/Time Associated Diagnosis Comments EGD, UPPER GI ENDOSCOPY (WRVU 2.09) 09/17/2018 10:04 AM EDT cirrhosis,screening for varices (IVCS) prep: proclear UPPER GI ENDOSCOPY Routine 09/17/2018 9: 58 AM EDT documented in this encounter Results * UPPER GI ENDOSCOPY (09/17/2018 9:58 AM EDT) UPPER GI ENDOSCOPY [facility] Endoscopy Procedure Date: 09/17/2018 9:58 AM ? Patient Name: Mlika Corbett ? Date of : 1940 ? Age: 78 ? Order #: [id number] ? Instrument Name: [id number] ? Procedure: ? Upper GI endoscopy Indications: [...] the physician, the nurse ? and the bone density technician. The procedure was ? verified in [...] Procedure Code(s): ?? --- Professional --- ? 66302, Esophagogastroduod enoscopy, ? flexible, transoral; diagnostic, ? including collection of specimen(s) ? by brushing or washing, when ? performed (separate procedure) CPT copyright 2017 [employer]. All rights reserved. The codes documented in this report are preliminary and upon cane piler review may be revised to meet current compliance requirements. Attending Participation: ? I was present and participated during the entire ? procedure, including non-palomo portions. ? Juliette Zoey Tien, 09/17/2018 10:32:25 AM Number of Addenda: 0 Note Initiated On: 09/17/2018 9:58 AM PROVATION 09/17/2018 9:58 AM EDT Salome Mcarthur CORPORATE TRAINER GENERAL SURGICAL OR DERABLES PROVATION documented in [...] RN) documented in this encounter Care Teams Last Remodeler Repairer Relationship Specialty Start Date End Date Salome Mcarthur, [address] [place] [address] PCP - General Family Medicine 05/30/15 12/11/23 documented as of this encounter
--- OUTSIDE RECORDS SUMMARY | 2024-04-20 15:53 | XMS_ITS | Encounter Summary ---
Author Organization [facility] [place] [address] Care Team Providers Care Testing Director Name Role Phone Salome Mcarthur APRN Primary Care Provider [phone] Encounter Details Date Type Department Care Team (Latest Contact Info) Description 10/29/2019 3:15 PM EDT Laboratory Appointment Lab [address] [place] [address] Hepatic cirrhosis, unspecified hepatic cirrhosis [...] 04/28/2024 11:00 AM [place] [address] Molly Cui [facility] [place] [address] 04/28/2024 2:00 PM EST Office [place] [address] Molly Cui [facility] [place] [address] documented as of this encounter [...] 3:13 PM EDT) Neutrophil % 55.9 % [facility] Neutrophil Absolute 4.08 1.70 - 6.10 x10(3)/[facility] Lymph % 33.9 % [facility] Lymphocytes Abs 2.5 0.9 - 3.2 x10(3)/[facility] Monocyte % 7.9 % [facility] Monocyte Abs 0.6 0.3 - 0.9 x10(3)/[facility] Eos % 1.9 % [facility] Eosinophils Abs 0.1 0.0 - 0.4 x10(3)/[facility] Basophil % 0.3 % [facility] Baso Absolute 0.0 0.0 - 0.1 x10(3)/[facility] Immature Gran % 0.10 % [facility] Comment: Immature granulocytes(IG's)percentage and absolute count will include metamyelocytes, myelocytes, and promyelocytes. Blood smears from CBCs yielding IG's will be scanned manually for concordance. If this scan disagrees with the automated IG or if promyelocytes are noted, a manual differential will be performed. Immature Gran Absolute 0.01 0.00 - 0.04 x10(3)/mcL [facility] Blood specimen (specimen) 10/29/2019 3:13 PM EDT 10/29/2019 3:22 PM EDT Narrative Resulting Agency Comment Spec In Lab Molly Cui APRN HEMATOLOGY ORDERAB LES [facility] [place] [address] * (ABNORMAL) Hemogram (10/29/2019 3:13 PM EDT) White Blood Cell 7.3 4.0 - 9.5 x10(3)/mc L [facility] Red Blood Cell 4.42 4.00 - 5.21 x10(6)/mc L [facility] Hemoglobin 13.5 11.7 - 15.5 gm/dL [facility] Hematocrit 40.5 35.7 - 45.8 % [facility] Mean Cell Volume 91.6 82.6 - 94.4 fL [facility] Mean Cell Hemoglobin 30.5 27.1 - 32.0 pg [facility] Mean Cell Hemoglobin Concentration 33.3 31.7 - 35.0 gm/dL [facility] Platelet 122(L) 145 - 357 x10(3)/mc L [facility] RDW Standard Deviation 43.3 37.0 - 46.0 [facility] RDW coefficient of variation 12.9 11.5 - 14.1 % [facility] Mean Platelet Volume 11.3 7.6 - 12.9 fL [facility] NRBC% auto 0.0 % [facility] NRBC Absolute 0.000 0.000 - 0.000 x10(3)/mc L [facility] Blood specimen (specimen) 10/29/2019 3:13 PM EDT 10/29/2019 3:22 PM EDT Narrative Resulting Agency Comment Spec In Lab Mollyjuan a Cui NATIONAL SECRETARY HEMATOLOGY ORDERAB LES [facility] [place] [address] * (ABNORMAL) Comprehensive metabolic panel (non-fasting) (10/29/2019 3:13 PM EDT) Glucose 116 65 - 199 mg/dL [facility] Comment:Diabetes: >=200 mg/d L plus symptoms Blood Urea Nitrogen 19(H) 8 - 18 mg/dL [facility] Creatinine 0.67(L) 0.70 - 1.20 mg/dL [facility] Sodium 140 135 - 145 mmol/L [facility] [...] questions. Chloride 98 98 - 107 mmol/L [facility] Carbon Dioxide 27 22 - 31 mmol/L [facility] Anion Gap 15 5 - 15 mmol/L [facility] Calcium 9.9 8.5 - 10.5 mg/dL [facility] Protein, Total 7.0 6.1 - 8.0 gm/dL [facility] Albumin 4.4 3.2 - 5.2 gm/dL [facility] Aspartate Aminotransferase 28 0 - 30 unit/L [facility] Alanine Aminotransferase 37(H) 0 - 30 unit/L [facility] Alkaline Phosphatase 73 35 - 105 unit/L [facility] Bilirubin, Total 0.6 0.2 - 1.3 mg/dL [facility] Est Glomerular Filtration Rate 84 >=60 mL/min/1. 73 m?? [facility] Comment: The eGFR was calculated using the CKD-EPI equation. As with all creatinine based estimates of kidney function, eGFR values calculated with the CKD-EPI equation are not accurate in patients with acute kidney failure, extremes of body mass or the acutely ill. http://[facility] eGFR 98 >=60 mL/min/1. 73 m?? [facility] Comment: The eGFR was calculated using the CKD-EPI equation. As with all creatinine based estimates of kidney function, eGFR values calculated with the CKD-EPI equation are not accurate in patients with acute kidney failure, extremes of body mass or the acutely ill. http://[facility] Blood specimen (specimen) 10/29/2019 3:13 PM EDT 10/29/2019 3:22 PM EDT Narrative Resulting Agency Comment Spec In Lab Molly Cui APRN CHEMISTRY ORDERABL ES Performing Organization Address [facility] Co de Phone Number [facility] [place] [address] * AFP tumor marker (10/29/2019 3:13 PM EDT) Alpha Fetoprotein 2.9 <=8.3 ng/mL [facility] Blood specimen (specimen) 10/29/2019 3:13 PM EDT 10/29/2019 3:22 PM EDT Narrative Resulting Agency Comment Spec In Lab Molly Cui NATIONAL SECRETARY CHEMISTRY ORDERABL ES Performing Organization Address [facility] Co de Phone Number [facility] [place] [address] * (ABNORMAL) Prothrombin Time (10/29/2019 3:13 PM EDT) Prothrombin Time 13.1(H) 9.4 - 12.5 sec [facility] [...] Lab Molly Cui APRN HEMATOLOGY ORDERAB LES [facility] [place] [address] documented in this encounter Visit Diagnoses Diagnosis Hepatic cirrhosis, unspecified hepatic cirrhosis type, unspecified whether ascites present documented in this encounter Care Teams Testing Director Relationship Specialty Start Date End Date Salome Mcarthur APRN [address] [place] [address] PCP - General Family Medicine 05/30/15 12/11/23 documented as of this encounter
--- OUTSIDE RECORDS SUMMARY | 2024-04-20 15:53 | XMS_ITS | Encounter Summary ---
Author Organization [facility] Address [facility] [place] [address] Care Team Providers Care Job Spotter Name Role Phone Salome Mcarthur APRN Primary Care Provider [phone] Encounter Details Date Type Department Care Team (Latest Contact Info) Description 05/19/2020 10:31 AM EST - 05/19/2020 11:59 PM [facility] Hospital [place] [phone] Molly Wallis [facility] [place] [address] Hepatic cirrhosis, unspecified hepatic cirrhosis type, unspecified [...] directed. 05/02/2020 fluticasone propionate (FLONASE) 50 mcg/actuation [place], Suspension 1 spray daily. pramipexole (MIRAPEX) 0.125 [...] 04/28/2024 11:00 AM [place] [address] Molly Wallis, [facility] [place] [address] 04/28/2024 2:00 PM EST Office [place] [address] Molly Wallis, [facility] [place] [address] documented as of this encounter Procedures Procedure [...] below. Electronically signed by: Alisha Grove MD, [facility] ([phone]), at 05/19/2020 11:51 AM ? Alisha Grove, Staff Physician Electronically Signed Final Report ?? 05/19/2020 11:57 am Narrative 05/19/2020 11:58 AM EST Abdominal ? (Signed Final 05/19/2020 11:57 am) PATIENT INFO: ID #: ? [id number] ?: ??[birth year] (79 yrs)(F) Name: ? MILKA MENDIETA ?Visit Date: 05/19/2020 11:19 am PERFORMED BY: Performed By: ? Gabi Mtz RDMS Attending: ?Perfecto GALLO, Alisha Carpio Resident: ? Tacho Guajardo MD Referred By: ?MOLLY WALLIS Secondary Phy.: ?? MOLLY WALLIS LIAISON PLANNER Location: ? [place] SERVICE(S) PROVIDED: ??UABDLIM - Hepatology Protocol - Abdominal ? 18593 ??Limited Survey Single Organ or Quadrant - ??[id number] INDICATIONS: ??cirrhosis, screen for hcc ------ LIVER: [...] 05/19/2020 11:57 am) PATIENT INFO: ID #: [id number] : [birth year] (79 yrs)(F) Name: MILKA MENDIETA Visit Date: 05/19/2020 11:19 am PERFORMED BY: Performed By: Gabi Mtz RDMS Attending: Alisha Grove MD Resident: Tacho Guajardo MD Referred By: MOLLY WALLIS Secondary Phy.: MOLLY WALLIS APRN Location: [place] SERVICE(S) PROVIDED: UABDLIM - Hepatology Protocol - Abdominal 82908 Limited Survey Single Organ or Quadrant - [id number] INDICATIONS: cirrhosis, screen for hcc ------ LIVER: [...] below. Electronically signed by: Alisha Grove MD, [facility] ([phone]), at 05/19/2020 11:51 AM Alisha Grove, Staff Physician Electronically Signed Final Report 05/19/2020 11:57 am Molly Wallis APRN [facility] GEN ORDERAB LES documented in this encounter Visit Diagnoses Diagnosis Hepatic cirrhosis, unspecified hepatic cirrhosis type, unspecified whether ascites present documented in this encounter Care Teams Job Spotter Relationship Specialty Start Date End Date Salome Mcarthur APRN [address] [place] [address] PCP - General Family Medicine 05/30/15 12/11/23 documented as of this encounter
--- OUTSIDE RECORDS SUMMARY | 2024-04-20 15:53 | XMS_ITS | Encounter Summary ---
Author Organization [facility] Address [facility] [place] [address] Care Team Providers Care Credit Representative Name Role Phone Salome Mcarthur APRN Primary Care Provider [phone] Reason for Visit * Auth/Cert Specialty Diagnoses [...] Expiration Date Visits Re quested Visits Authorized [id number] 1 1 Encounter Details Date Type Department Care Team (Latest Contact Info) Description 09/26/2020 12:50 PM EDT - 09/26/2020 3:53 PM EDT Hospital Encounter [place] [address] Jean Claude Chacon MD [facility] [place] [address] Hepatic cirrhosis Discharge Disposition: Home Social History [...] the day after the procedure, use an rcin-omq-hmkypya spray to numb your throat. Sucking on [...] occurs, please contact your Doctor. Please call [phone] before 8pm Mon-Fri with problems, questions or concerns. If you call after 8pm or on weekends, call the Hospital at [phone] and ask to speak to the Prescription Benefit Specialist senior receptionist and the lye peel operator will contact that person for you. When should you call for help? Call [phone] anytime you think you may need emergency [...] Visit Summary and more online at [email or web address] If you would like to provide feedback about your hospital experience, please call the Office of Patient and Family Relations at . If you have received this After Visit Summary in error, please immediately return it in person to the department, or notify the [facility] Privacy Office by calling toll free at between the hours of 8AM and 5PM to arrange for our retrieval of the documents at no cost to you. Content Version: 12.2 ?? [id number] [employer] Care instructions adapted under license by [facility]. If you have questions about a medical condition or this instruction, always ask your healthcare professional. [employer] disclaims any warranty or liability for [...] directed. 05/02/2020 fluticasone propionate (FLONASE) 50 mcg/actuation [place], Suspension 1 spray daily. pramipexole (MIRAPEX) 0.125 [...] Operative Note Patient Name: Milka Corbett : [id number] MR#: [id number] Case Date: 09/26/2020 Surgeon: Surgeon(s) and Role: * Braulio Bailey MD - Primary Procedure(s): EGD, UPPER GI ENDOSCOPY Please see Provation report for details. documented in this encounter Plan of Treatment Upcoming Encounters Date Type Department Care Team (Late st Contact Info) Description 04/28/2024 11:00 AM EST [place] [address] Molly Cui, EQUITIES ANALYST [facility] [place] [address] 04/28/2024 2:00 PM EST Office [place] [phone] Molly Cui EQUITIES ANALYST [facility] [place] [address] documented as of this encounter Procedures Procedure [...] (09/26/2020 1:55 PM EDT) UPPER GI ENDOSCOPY [facility] Endoscopy Procedure Date: 09/26/2020 1:55 PM ? Patient Name: Milka Corbett ? Date of : 1940 ? Age: 80 ? Order #: [id number] ? Instrument Name: [id number] LOANER ? Procedure: ? Upper GI endoscopy [...] Procedure Code(s): ?? --- Professional --- ? 80986, Esophagogastroduod enoscopy, ? flexible, transoral; diagnostic, ? including collection of specimen(s) ? by brushing or washing, when ? performed (separate procedure) Diagnosis Code(s): ?? --- Professional --- ? K29.70, Gastritis, unspecified, ? without bleeding ? 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 --- Technical --- ? K29.70, Gastritis, unspecified, ? without bleeding ? 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 All rights reserved. The codes documented in this report are preliminary and upon vehicle body builder review may be revised to meet current compliance requirements. Attending Participation: ? I personally performed the entire procedure. ? Braulio Bailey, 09/26/2020 2:38:44 PM Number of Addenda: 0 Note Initiated On: 09/26/2020 1:55 PM PROVATION 09/26/2020 1:55 PM EDT Salome Mcarthur EQUITIES ANALYST GENERAL SURGICAL OR DERABLES PROVATION * POCT Glucose (09/26/2020 1:42 PM EDT) Glucose, POC 88 65 - 199 mg/dL [facility] Comment: Supplemental ranges: <140 mg/dL before meals <180 mg/dL all other times of the day Blood 09/26/2020 1:42 PM EDT 09/25/2020 12:00 PM EDT Jean Claude Chacon MD POINT OF CARE TEST O RDERABLES [facility] [place] [address] documented in this encounter Visit Diagnoses Diagnosis [...] RN) documented in this encounter Care Teams Credit Representative Relationship Specialty Start Date End Date Salome Mcarthur APRN [address] [place] [address] PCP - General Family Medicine 05/30/15 12/11/23 documented as of this encounter
--- OUTSIDE RECORDS SUMMARY | 2024-04-20 15:53 | XMS_ITS | Encounter Summary ---
[place] [address] Care Team Providers Care Pressure Vessel Inspector Name Role Phone Salome Mcarthur APRN Primary Care Provider [phone] Reason for Referral * Diagnostic Test (Routine) - Closed Specialty Diagnoses / Procedures Referred By Contac t Referred To Contact Radiology Diagnoses Hepatic cirrhosis, unspecified hepatic cirrhosis type, unspecified whether ascites present Procedures MRI Abdomen wwo Contrast (Generic) Molly Cui APRN [facility] [place] [address] [place] [address] Referral ID Status Reason Start Date Expiration Date V isits Requested Visits Authorized [id number] Closed Specialty Service Requested 03/12/2019 03/11/2020 1 1 Reason for Visit * Diagnostic Test (Routine) - Closed Specialty Diagnoses / Procedures Referred By Contac t Referred To Contact Radiology Diagnoses Hepatic cirrhosis, unspecified hepatic cirrhosis type, unspecified whether ascites present Procedures MRI Abdomen wwo Contrast (Generic) Molly Cui APRN [facility] [place] [address] [place] [address] Referral ID Status Reason Start Date Expiration Date V isits Requested Visits Authorized [id number] Closed Specialty Service Requested 03/12/2019 03/11/2020 1 1 Encounter Details Date Type Department Care Team (Latest Contact Info) Description 10/29/2019 3:21 PM EDT - 10/29/2019 11:59 PM EDT Hospital Encounter [place] [address] Molly Cui APRN [facility] [place] [address] Hepatic cirrhosis, unspecified hepatic cirrhosis type, unspecified [...] protection 06/06/2009 fluticasone propionate (FLONASE) 50 mcg/actuation [place], Suspension 1 spray daily. pramipexole (MIRAPEX) 0.125 [...] 04/28/2024 11:00 AM [place] [phone] Molly Cui, [facility] [place] [address] 04/28/2024 2:00 PM EST Office [place] [phone] Molly Cui, [facility] [place] [address] documented as of this encounter Procedures Procedure [...] criteria and documentation are available online at https://www.acr.org/Clinical-Resources/Idflhxkhl-com-Ymfu-Systems/LI-RADS. This report utilizes LI-RADS version 2018. I [...] criteria and documentation are available online at https://www.acr.org/Clinical-Resources/Jsawvqapm-mha-Faws-Systems/LI-RADS.This report utilizes LI-RADS version 2018. I have [...] mLs documented in this encounter Care Teams Pressure Vessel Inspector Relationship Specialty Start Date End Date Salome Mcarthur APRN [address] [place] [address] PCP - General Family Medicine 05/30/15 12/11/23 documented as of this encounter
--- OUTSIDE RECORDS SUMMARY | 2024-04-20 15:53 | XMS_ITS | Encounter Summary ---
[facility] [place] [address] Care Team Providers Care Progress Developer Name Role Phone Salome Mcarthur APRN Primary Care Provider [phone] Encounter Details Date Type Department Care Team (Late st Contact Info) Description 09/10/2018 Telephone [facility] [place] [phone] Laura Pike Social History Tobacco Use Types [...] meds?:no Current medical conditions? no BMI:27.21 Prep:proclear Produce Shipper?:yes Instructions to patient?:instructions to patient at 4L/Exit 09/10/2018~[facility] documented in this encounter Plan of Treatment Upcoming Encounters Date Type Department Care Team (Late st Contact Info) Description 04/28/2024 11:00 AM EST [place] [address] Molly Cui, [facility] [address] 04/28/2024 2:00 PM EST Office [place] [address] Molly Cui, [facility] [address] documented as of this encounter Visit Diagnoses Not on filedocumented in this encounter Care Teams Progress Developer Relationship Specialty Start Date End Date Salome Mcarthur APRN [address] [place] [address] PCP - General Family Medicine 05/30/15 12/11/23 documented as of this encounter
--- OUTSIDE RECORDS SUMMARY | 2024-04-20 15:53 | XMS_ITS | Encounter Summary ---
Author Organization [facility] Address [facility] [place] [address] Care Team Providers Care Zig Zag Stitcher Name Role Phone Salome Mcarthur APRN Primary Care Provider [phone] Encounter Details Date Type Department Care Team (Latest Contact Info) Description 03/12/2019 10:01 AM EST - 03/12/2019 11:59 PM [facility] Hospital [place] [phone] Molly Wallis [facility] [place] [address] Hepatic cirrhosis, unspecified hepatic cirrhosis type, unspecified [...] protection 06/06/2009 fluticasone propionate (FLONASE) 50 mcg/actuation [place], Suspension 1 spray daily. pramipexole (MIRAPEX) 0.125 [...] 04/28/2024 11:00 AM EST [place] [address] Molly Wallis, [facility] [place] [address] 04/28/2024 2:00 PM EST Office [place] [phone] Molly Wallis, PUBLIC WORKS COMMISSIONER [facility] [place] [address] documented as of this encounter Procedures Procedure [...] below. Electronically signed by: Jean Claude Bautista, [facility] ([phone]), at 03/12/2019 1:48 PM ? Jean Claude Bautista, Staff Physician Electronically Signed Final Report ?? 03/12/2019 01:55 pm Narrative 03/12/2019 1:55 PM EST Abdominal ? (Signed Final 03/12/2019 01:55 pm) PATIENT INFO: ID #: ? [id number] ?: ??[birth year] (78 yrs) Name: ? MILKA KIDDIER ?Visit Date: 03/12/2019 11:07 am PERFORMED BY: Performed By: ? Tigist Castellanos RDMS Attending: ?Lliy GALLO, Jean Claude Lancaster Resident: ? Ruchi GALLO, Kal Montesinos Referred By: ?MOLLY WALLIS Secondary Phy.: ?? MOLLY WALLIS PUBLIC WORKS COMMISSIONER Location: ? [place] SERVICE(S) PROVIDED: ??UABDLIM - Hepatology Protocol - Abdominal ? 15504 ??Limited Survey Single Organ or Quadrant - ??[id number] INDICATIONS: ??cirrhosis, survey for hcc ------ LIVER: [...] 03/12/2019 01:55 pm) PATIENT INFO: ID #: [id number] : [birth year] (78 yrs) Name: MILKA MENDIETA Visit Date: 03/12/2019 11:07 am PERFORMED BY: Performed By: Tigist Castellanos RDMS Attending: Jean Claude Bautista MD Resident: Kal Hopper MD Referred By: MOLLY WALLIS [facility] Phy.: MOLLY WALLIS APRN Location: [place] SERVICE(S) PROVIDED: UABDLIM - Hepatology Protocol - Abdominal 86314 Limited Survey Single Organ or Quadrant - [id number] INDICATIONS: cirrhosis, survey for hcc ------ LIVER: [...] below. Electronically signed by: Jean Claude Bautista [facility] ([phone]), at 03/12/2019 1:48 PM Jean Claude Bautista, Staff Physician Electronically Signed Final Report 03/12/2019 01:55 pm Molly Wallis APRN IMG US GEN ORDERAB LES documented in this encounter Visit Diagnoses Diagnosis Hepatic cirrhosis, unspecified hepatic cirrhosis type, unspecified whether ascites present documented in this encounter Care Teams Zig Zag Stitcher Relationship Specialty Start Date End Date Salome Mcarthur APRN [address] [place] [address] PCP - General Family Medicine 05/30/15 12/11/23 documented as of this encounter
--- OUTSIDE RECORDS SUMMARY | 2024-04-20 15:53 | XMS_ITS | Encounter Summary ---
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) prep: proclear Procedures PRO UPPER GI ENDOSCOPY, DIAGNOSTIC EGD, UPPER GI ENDOSCOPY Referral ID Status Reason Start Date Expiration Date Visits Re quested Visits Authorized [id number] 1 1 Encounter Details Date Type Department Care Team (Late st Contact Info) Description 09/17/2018 11:30 AM EDT - 09/17/2018 12:00 PM EDT [place] [phone] Juliette Chauhan MD [facility] [place] [address] EGD, UPPER GI ENDOSCOPY (WRVU 2.09) Social [...] this encounter Discharge Instructions * Discharge Instructions* Lelnad Canchola RN - 09/17/2018 10:36 AM EDT [...] better as expected. Saturday-Saturday Same Day Endo [phone] 7a-8p Otherwise contact [phone] and ask to speak to the slate handler telecommunications equipment installer Follow-up care is a palomo part of your treatment and safety. Be sure to make and go to all appointments, and call your doctor if you are having problems. Instructions have been reviewed and patient expresses understanding Please call [phone] before 8pm Sat-Sat with problems, questions or concerns. If you call after 8pm or on weekends, call the Hospital at [phone] and ask to speak to the Associate Program Manager telecommunications equipment installer and the masking machine operator will contact that person for [...] WHEN SHOULD YOU CALL FOR HELP? Call [phone] anytime you think that you need emergency [...] better as expected. Saturday-Saturday Same Day Endo [phone] 7a-8p Otherwise contact [phone] and ask to speak to the slate handler telecommunications equipment installer Follow-up care is a palomo part of [...] protection 06/06/2009 fluticasone propionate (FLONASE) 50 mcg/actuation [place], Suspension 1 spray daily. pramipexole (MIRAPEX) 0.125 [...] signed by: Kehinde Martin Gastroenterology Fellow [facility] Pager [phone] 09/17/2018 documented in this encounter Plan of Treatment Upcoming Encounters Date Type Department Care Team (Late st Contact Info) Description 04/28/2024 11:00 AM EST [place] [address] Molly Cui, [facility] [place] [address] 04/28/2024 2:00 PM EST Office [place] [phone] Molly Cui, [facility] [place] [address] documented as of this encounter Procedures Procedure Name Priority Date/Time Associated Diagnosis Comments EGD, UPPER GI ENDOSCOPY (WRVU 2.09) 09/17/2018 10:04 AM EDT cirrhosis,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 Patient Name: Milka Corbett ? Date of : 1940 ? Age: 78 ? Order #: [id number] ? Instrument Name: [id number] ? Procedure: ? Upper GI endoscopy Indications: [...] the physician, the nurse ? and the outer diameter technician. The procedure was ? verified in [...] Procedure Code(s): ?? --- Professional --- ? 57418, Esophagogastroduod enoscopy, ? flexible, transoral; diagnostic, ? including collection of specimen(s) ? by brushing or washing, when ? performed (separate procedure) CPT copyright 2017 [employer]. All rights reserved. The codes documented in this report are preliminary and upon gold marker review may be revised to meet current compliance requirements. Attending Participation: ? I was present and participated during the entire ? procedure, including non-palomo portions. ? Juliette Zoey Tien, 09/17/2018 10:32:25 AM Number of Addenda: 0 Note Initiated On: 09/17/2018 9:58 AM PROVATION 09/17/2018 9:58 AM EDT Salome Mcarthur CARBURETOR REBUILDER GENERAL SURGICAL [employer] DERABLES PROVATION documented in [...] RN) documented in this encounter Care Teams Winch Derrick Operator Relationship Specialty Start Date End Date Salome Mcarthur APRN [address] [place] [address] PCP - General Family Medicine 05/30/15 12/11/23 documented as of this encounter
--- OUTSIDE RECORDS SUMMARY | 2024-04-20 15:53 | XMS_ITS | Encounter Summary ---
Author Organization [facility] [place] [address] Care Team Providers Care Sous Chef Name Role Phone Salome Mcarthur APRN Primary Care Provider [phone] Encounter Details Date Type Department Care Team (Latest Contact Info) Description 12/06/2020 12:45 PM EDT Laboratory Appointment Lab [address] [place] [address] Hepatic cirrhosis, unspecified hepatic cirrhosis [...] 04/28/2024 11:00 AM EST [place] [address] Molly Cui [facility] [place] [address] 04/28/2024 2:00 PM EST Office [place] [address] Molly Cui [facility] [place] [address] documented as of this encounter [...] 12:34 PM EDT) Neutrophil % 50.1 % [facility] Neutrophil Absolute 2.66 1.70 - 6.10 x10(3)/[facility] Lymph % 36.7 % [facility] Lymphocytes Abs 2.0 0.9 - 3.2 x10(3)/[facility] Monocyte % 9.6 % [facility] Monocyte Abs 0.5 0.3 - 0.9 x10(3)/[facility] Eos % 2.6 % [facility] Eosinophils Abs 0.1 0.0 - 0.4 x10(3)/[facility] Basophil % 0.6 % [facility] Baso Absolute 0.0 0.0 - 0.1 x10(3)/[facility]OR[facility] Immature Gran % 0.40 % [facility] Comment: Immature granulocytes(IG's)percentage and absolute count will include metamyelocytes, myelocytes, and promyelocytes. Blood smears from CBCs yielding IG's will be scanned manually for concordance. If this scan disagrees with the automated IG or if promyelocytes are noted, a manual differential will be performed. Immature Gran Absolute 0.02 0.00 - 0.04 x10(3)/mcL [facility] Blood 12/06/2020 12:3 4 PM EDT 12/06/2020 12:44 PM EDT Narrative Resulting Agency Comment Spec In Lab Molly Cui APRN HEMATOLOGY ORDERAB LES [facility] [place] [address] * (ABNORMAL) Hemogram (12/06/2020 12:34 PM EDT) White Blood Cell 5.3 4.0 - 9.5 x10(3)/mc L [facility] Red Blood Cell 3.98(L) 4.00 - 5.21 x10(6)/mc L [facility] Hemoglobin 12.3 11.7 - 15.5 gm/dL [facility] Hematocrit 37.0 35.7 - 45.8 % [facility] Mean Cell Volume 93.0 82.6 - 94.4 [facility] Mean Cell Hemoglobin 30.9 27.1 - 32.0 pg [facility] Mean Cell Hemoglobin Concentration 33.2 31.7 - 35.0 gm/dL [facility] Platelet 93(L) 145 - 357 x10(3)/mc L [facility] RDW Standard Deviation 45.1 37.0 - 46.0 [facility] RDW coefficient of variation 13.2 11.5 - 14.1 % [facility] Mean Platelet Volume 11.4 7.6 - 12.9 [facility] NRBC% auto 0.0 % [facility] NRBC Absolute 0.000 0.000 - 0.000 x10(3)/mc L [facility] Blood 12/06/2020 12:3 4 PM EDT 12/06/2020 12:44 PM EDT Narrative Resulting Agency Comment Spec In Lab Molly Cui LORETO HEMATOLOGY ORDERAB LES [facility] [place] [address] * (ABNORMAL) Comprehensive metabolic panel (non-fasting) (12/06/2020 12:34 PM EDT) Glucose 90 65 - 199 mg/dL [facility] Comment:Diabetes: >=200 mg/d L plus symptoms Blood Urea Nitrogen 23(H) 8 - 18 mg/dL [facility] Creatinine 0.78 0.70 - 1.20 mg/dL [facility] Sodium 141 135 - 145 mmol/L [facility] Potassium 4.4 3.5 - 5.0 mmol/L [facility] Comment: Please note: ??Patients with WBC >100,000 may have falsely elevated Potassium levels. ??For accurate Potassium quantification in these patients send serum separator tube (gold top) for subsequent determinations. ??Contact the Clinical Chemistry Laboratory if there are any questions. Chloride 103 98 - 107 mmol/L [facility] Carbon Dioxide 26 22 - 31 mmol/L [facility] Anion Gap 12 5 - 15 mmol/L [facility] Calcium 10.2 8.5 - 10.5 mg/dL [facility] Protein, Total 6.9 6.1 - 8.0 gm/dL [facility] Albumin 4.2 3.2 - 5.2 gm/dL [facility] Aspartate Aminotransferase 35(H) 0 - 30 unit/L [facility] Alanine Aminotransferase 36(H) 0 - 30 unit/L [facility] Alkaline Phosphatase 82 35 - 105 unit/L [facility] Bilirubin, Total 0.7 0.2 - 1.3 mg/dL [facility] Est Glomerular Filtration Rate 72 >=60 mL/min/1. 73 m?? [facility] [...] APRN CHEMISTRY ORDERABL ES Performing Organization Address [facility] Co de Phone Number [facility] [place] [address] * Prothrombin Time (12/06/2020 12:34 PM EDT) Prothrombin Time 11.9 9.4 - 12.5 sec [facility] International Normalization Ratio 1.0 [facility] Comment: An [...] APRN HEMATOLOGY ORDERAB LES Performing Organization Address [facility] Co de Phone Number [facility] [place] [address] documented in this encounter Visit Diagnoses Diagnosis Hepatic cirrhosis, unspecified hepatic cirrhosis type, unspecified whether ascites present documented in this encounter Care Teams Sous Chef Relationship Specialty Start Date End Date Salome Mcarthur, DB[employer] SYSTEMS PROGRAMMER [address] [place] [address] PCP - General Family Medicine 05/30/15 12/11/23 documented as of this encounter
--- OUTSIDE RECORDS SUMMARY | 2024-04-20 15:53 | XMS_ITS | Encounter Summary ---
Author Organization [place] [address] Care Team Providers Care Multiple Spindle Router Operator Name Role Phone Salome Mcarthur APRN Primary Care Provider [phone] Encounter Details Date Type Department Care Team (Late st Contact Info) Description 09/10/2018 Telephone Cardiology at [address] [phone] Laura Pike Social History Tobacco Use Types [...] 04/28/2024 11:00 AM EST Appointment [place] [address] Molly Cui APRN [facility] [place] [address] 04/28/2024 2:00 PM EST Office Visit [place] [address] Molly Cui APRN [facility] [place] [address] documented as of this encounter Visit Diagnoses Not on filedocumented in this encounter Care Teams Multiple Spindle Router Operator Relationship Specialty Start Date End Date Salome Mcarthur APRN [address] [place] [address] PCP - General Family Medicine 05/30/15 12/11/23 documented as of this encounter
--- OUTSIDE RECORDS SUMMARY | 2024-04-20 15:53 | XMS_ITS | Encounter Summary ---
Author Organization [facility] [place] [address] Care Team Providers Care Traffic Control Flagger Name Role Phone Salome Mcarthur APRN Primary Care Provider [phone] Reason for Visit * Auth/Cert Specialty Diagnoses / Procedures Referred By Jose bermudez Referred To Contact Diagnoses 1 yr surv from 09/17/18 Procedures PRO UPPER GI ENDOSCOPY, DIAGNOSTIC EGD, UPPER GI ENDOSCOPY Referral ID Status Reason Start Date Expiration Date Visits Re quested Visits Authorized [id number] 1 1 Encounter Details Date Type Department Care Team (Latest Contact Info) Description 09/23/2019 10:29 AM EDT - 09/23/2019 2:07 PM EDT Hospital Encounter [place] [phone] Juliette Chauhan MD [facility] [place] [address] Discharge Disposition: Home Social History Tobacco Use [...] the day after the procedure, use an pfkn-kyv-glktgiz spray to numb your throat. Sucking on [...] occurs, please contact your Doctor. Please call [phone] before 8pm Mon-Fri with problems, questions or concerns. If you call after 8pm or on weekends, call the Hospital at [phone] and ask to speak to the Director Of Student Financial Services remote control mirror installer and the wire mill operator will contact that person for you. When should you call for help? Call 750 anytime you think you may need emergency [...] any problems. Where can you learn more? [facility]- View your After Visit Summary and more online at [email or web address] If you would like to provide feedback about your hospital experience, please call the Office of Patient and Family Relations at . If you have received this After Visit Summary in error, please immediately return it in person to the department, or notify the [facility] Privacy Office by calling toll free at between the hours of 8AM and 5PM to arrange for our retrieval of the documents at no cost to you. Content Version: 12.2 ?? [id number] [employer]. Care instructions adapted under license by [facility]. If you have questions about a medical condition or this instruction, always ask your healthcare professional. [employer] disclaims any warranty or liability for your use of this information. documented in this encounter Medications at Time of Discharge Medication Sig Dispensed Refills Start Date End Date lisinopriL (Zestril) 10 mg tablet Take 1 tablet by mouth once a day for kidney protection 06/06/2009 fluticasone propionate (FLONASE) 50 mcg/actuation [place], Suspension 1 spray daily. pramipexole (MIRAPEX) 0.125 [...] AM EST [place] [phone] Molly Cui, [facility] [place] [address] 04/28/2024 2:00 PM EST Office [place] [address] Molly Cui, [facility] [place] [address] documented as of this encounter Procedures Procedure Name Priority Date/Time Associated Diagnosis Comments Upper GI Endoscopy, Diagnostic (31075) 09/23/2019 11:55 AM EDT 1 yr surv from 09/17/18 UPPER GI ENDOSCOPY Routine 09/23/2019 11 :41 AM EDT documented in this encounter Results * UPPER GI ENDOSCOPY (09/23/2019 11:41 AM EDT) [facility] UPPER GI ENDOSCOPY [facility] Procedure Date: 09/23/2019 11:41 AM ? Patient Name: Milka Corbett ? Date of : 1940 ? Age: 79 ? Order #: [id number] ? Instrument Name: [id number] ? Procedure: ? Upper GI endoscopy Indications: ? Follow-up of esophageal varices Providers: ? Juliette Chauhan MD, Bertha Lizarraga ? TRISHA Oleary, Fauzia Castillo ? TRISHA Kang, Genoveva Webber, Ware Cleaner Referring MD: ?Sophia Mcarthur MD Medicines: ? [...] Procedure Code(s): ?? --- Professional --- ? 30433, Esophagogastroduod enoscopy, ? flexible, transoral; diagnostic, ? including collection of specimen(s) ? by brushing or washing, when ? performed (separate procedure) CPT copyright 2019 [employer]. All rights reserved. The codes documented in this report are preliminary and upon pest control service sales agent review may be revised to meet current compliance requirements. Attending Participation: ? I personally performed the entire procedure. ? Juliette Chauhan MD Juliette Chauhan MD 09/23/2019 12:19:55 PM This report has been signed electronically. Number of Addenda: 0 Note Initiated On: 09/23/2019 11:41 AM PROVATION 09/23/2019 11:4 1 AM EDT Salome Mcarthur MVA REACTOR OPERATOR HEAD GENERAL [employer]GICAL [employer] DERABLES PROVATION documented in [...] RN) documented in this encounter Care Teams Traffic Control Flagger Relationship Specialty Start Date End Date Salome Mcarthur APRN [address] [place] [id number] PCP - General Family Medicine 05/30/15 12/11/23 documented as of this encounter
--- OUTSIDE RECORDS SUMMARY | 2024-04-20 15:53 | XMS_ITS | Encounter Summary ---
Author Organization [facility] [place] [address] Care Team Providers Care Lot Attendant Name Role Phone Salome Mcarthur APRN Primary Care Provider [phone] Reason for Referral * Diagnostic Test (Routine) - Closed Specialty Diagnoses / Procedures Referred By Contruth t Referred To Contact Radiology Diagnoses Hepatic cirrhosis, unspecified hepatic cirrhosis type, unspecified whether ascites present Procedures MRI Abdomen wwo Contrast (Generic) Molly Cui APRN [facility] [place] [address] [place] [address] Referral ID Status Reason Start Date Expiration Date V isits Requested Visits Authorized [id number] Closed Specialty Service Requested 03/12/2019 03/11/2020 1 1 Encounter Details Date Type Department Care Team (Late st Contact Info) Description 03/12/2019 12:30 PM EST Office [place] [address] Molly Cui APRN [facility] [place] [address] Hepatic cirrhosis, unspecified hepatic cirrhosis [...] Refill ??? fluticasone propionate (FLONASE) 50 mcg/actuation [place], Suspension 1 spray daily. ??? pramipexole (MIRAPEX) [...] mouth every 4 hours as needed. ??? [place]-3 Fatty Acids-Vitamin E (FISH OIL) 1,000 mg [...] with capsular nodularity, consistent with history of AB cirrhosis, per eDH. No sonographic evidence of [...] Cui APRN Section of Gastroenterology [place] [address] Copy: Salome Mcarthur APRN [address] / [place] [address] 25 of this 30 minute visit in face to face discussion regarding disease, prognosis and treatment documented in this encounter Plan of Treatment Upcoming Encounters Date Type Department Care Team (Late st Contact Info) Description 04/28/2024 11:00 AM EST [place] [phone] Molly Cui, [facility] [place] [address] 04/28/2024 2:00 PM EST Office [place] [phone] Molly Cui, [facility] [place] [address] documented as of this encounter Results * [...] criteria and documentation are available online at https://www.acr.org/Clinical-Resources/Akzzjejlp-zme-Bnnr-Systems/LI-RADS. This report utilizes LI-RADS version 2018. I [...] criteria and documentation are available online at https://www.acr.org/Clinical-Resources/Btznymumk-nhg-Bfhe-Systems/LI-RADS.This report utilizes LI-RADS version 2018. I have [...] PM EDT) Alpha Fetoprotein 2.9 <=8.3 ng/mL [facility] Blood specimen (specimen) 10/29/2019 3:13 PM EDT 10/29/2019 3:22 PM EDT Narrative Resulting Agency Comment Spec In Lab Molly Cui APRN CHEMISTRY ORDERABL ES [facility] [place] [address] * (ABNORMAL) Prothrombin Time (10/29/2019 3:13 PM EDT) Prothrombin Time 13.1(H) 9.4 - 12.5 sec [facility] ORDERAB LES [facility] [place] [address] * (ABNORMAL) Comprehensive metabolic panel (non-fasting) (10/29/2019 3:13 PM EDT) Glucose 116 65 - 199 mg/dL [facility] Comment:Diabetes: >=200 mg/d L plus symptoms Blood Urea Nitrogen 19(H) 8 - 18 mg/dL [facility] Creatinine 0.67(L) 0.70 - 1.20 mg/dL [facility] Sodium 140 135 - 145 mmol/L [facility] Potassium 4.2 3.5 - 5.0 mmol/L [facility] Comment: Please note: ??Patients with WBC >100,000 may have falsely elevated Potassium levels. ??For accurate Potassium quantification in these patients send serum separator tube (gold top) for subsequent determinations. ??Contact the Clinical Chemistry Laboratory if there are any questions. Chloride 98 98 - 107 mmol/L [facility] Carbon Dioxide 27 22 - 31 mmol/L [facility] Anion Gap 15 5 - 15 mmol/L [facility] Calcium 9.9 8.5 - 10.5 mg/dL [facility] Protein, Total 7.0 6.1 - 8.0 gm/dL [facility] Albumin 4.4 3.2 - 5.2 gm/dL [facility] Aspartate Aminotransferase 28 0 - 30 unit/L [facility] Alanine Aminotransferase 37(H) 0 - 30 unit/L [facility] Alkaline Phosphatase 73 35 - 105 unit/L [facility] Bilirubin, Total 0.6 0.2 - 1.3 mg/dL [facility] Est Glomerular Filtration Rate 84 >=60 mL/min/1. 73 m?? [facility] Comment: The eGFR was calculated using the CKD-EPI equation. As with all creatinine based estimates of kidney function, eGFR values calculated with the CKD-EPI equation are not accurate in patients with acute kidney failure, extremes of body mass or the acutely ill. http://Frequent Browser/[facility] TULSAnkf eGFR 98 >=60 mL/min/1. 73 m?? [facility] Comment: The eGFR was calculated using the CKD-EPI equation. As with all creatinine based estimates of kidney function, eGFR values calculated with the CKD-EPI equation are not accurate in patients with acute kidney failure, extremes of body mass or the acutely ill. http://Frequent Browser/[facility] TULSAnkf Blood specimen (specimen) 10/29/2019 3:13 PM EDT 10/29/2019 3:22 PM EDT Narrative Resulting Agency Comment Spec In Lab Molly Cui APRN CHEMISTRY ORDERABL ES [facility] [place] [address] documented in this encounter Visit Diagnoses Diagnosis Hepatic cirrhosis, unspecified hepatic cirrhosis type, unspecified whether ascites present Hepatic cirrhosis, unspecified hepatic cirrhosis type, unspecified whether ascites present documented in this encounter Care Teams Lot Attendant Relationship Specialty Start Date End Date Salome Mcarthur APRN [address] [place] [address] PCP - General Family Medicine 05/30/15 12/11/23 documented as of this encounter
--- OUTSIDE RECORDS SUMMARY | 2024-04-20 15:53 | XMS_ITS | Encounter Summary ---
Author Organization [facility] [place] [address] Care Team Providers Care Strategic Partnership Representative Name Role Phone Salome Mcarthur APRN Primary Care Provider [phone] Encounter Details Date Type Department Care Team (Latest Contact Info) Description 05/19/2020 10:25 AM EST Laboratory Appointment Lab [address] [place] [address] Hepatic cirrhosis, unspecified hepatic cirrhosis [...] 04/28/2024 11:00 AM [place] [address] Molly Cui [facility] [place] [address] 04/28/2024 2:00 PM EST Office [place] [address] Molly Cui [facility] [place] [address] documented as of this encounter [...] 10:25 AM EST) Neutrophil % 63.1 % [facility] Neutrophil Absolute 6.16(H) 1.70 - 6.10 x10(3)/mc L [facility] Lymph % 25.5 % [facility] Lymphocytes Abs 2.5 0.9 - 3.2 x10(3)/mc L [facility] Monocyte % 8.1 % [facility] Monocyte Abs 0.8 0.3 - 0.9 x10(3)/mc L [facility] Eos % 2.5 % [facility] Eosinophils Abs 0.2 0.0 - 0.4 x10(3)/mc L [facility] Basophil % 0.5 % [facility] Baso Absolute 0.0 0.0 - 0.1 x10(3)/mc L [facility] Immature Gran % 0.30 % [facility] Comment: Immature granulocytes(IG's)percentage and absolute count will include metamyelocytes, myelocytes, and promyelocytes. Blood smears from CBCs yielding IG's will be scanned manually for concordance. If this scan disagrees with the automated IG or if promyelocytes are noted, a manual differential will be performed. Immature Gran Absolute 0.03 0.00 - 0.04 x10(3)/mc L [facility] Blood specimen (specimen) 05/19/2020 10:25 AM EST 05/19/2020 10:41 AM EST Narrative Resulting Agency Comment Spec In Lab Molly Cui APRN HEMATOLOGY ORDERAB LES [facility] [place] [address] * (ABNORMAL) Hemogram (05/19/2020 10:25 AM EST) White Blood Cell 9.8(H) 4.0 - 9.5 x10(3)/mc L [facility] Red Blood Cell 4.65 4.00 - 5.21 x10(6)/mc L [facility] Hemoglobin 14.1 11.7 - 15.5 gm/dL [facility] Hematocrit 42.8 35.7 - 45.8 % [facility] Mean Cell Volume 92.0 82.6 - 94.4 fL [facility] Mean Cell Hemoglobin 30.3 27.1 - 32.0 pg [facility] Mean Cell Hemoglobin Concentration 32.9 31.7 - 35.0 gm/dL [facility] Platelet 130(L) 145 - 357 x10(3)/mc L [facility] RDW Standard Deviation 43.8 37.0 - 46.0 fL [facility] RDW coefficient of variation 12.9 11.5 - 14.1 % [facility] Mean Platelet Volume 11.8 7.6 - 12.9 fL [facility] NRBC% auto 0.0 % [facility] NRBC Absolute 0.000 0.000 - 0.000 x10(3)/mc L [facility] Blood specimen (specimen) 05/19/2020 10:25 AM EST 05/19/2020 10:41 AM EST Narrative Resulting Agency Comment Spec In Lab Molly Cui MARBLE SETTER HEMATOLOGY ORDERAB LES [facility] [place] [address] * (ABNORMAL) Comprehensive metabolic panel (non-fasting) (05/19/2020 10:25 AM EST) Glucose 112 65 - 199 mg/dL [facility] Comment:Diabetes: >=200 mg/d L plus symptoms Blood Urea Nitrogen 24(H) 8 - 18 mg/dL [facility] Creatinine 0.78 0.70 - 1.20 mg/dL [facility] Sodium 140 135 - 145 mmol/L [facility] [...] questions. Chloride 99 98 - 107 mmol/L [facility] Carbon Dioxide 27 22 - 31 mmol/L [facility] Anion Gap 14 5 - 15 mmol/L [facility] Calcium 10.8(H) 8.5 - 10.5 mg/dL [facility] Protein, Total 7.8 6.1 - 8.0 gm/dL [facility] Albumin 4.7 3.2 - 5.2 gm/dL [facility] Aspartate Aminotransferase 23 0 - 30 unit/L [facility] Alanine Aminotransferase 26 0 - 30 unit/L [facility] Alkaline Phosphatase 94 35 - 105 unit/L [facility] Bilirubin, Total 0.7 0.2 - 1.3 mg/dL [facility] Est Glomerular Filtration Rate 73 >=60 mL/min/1. 73 m?? [facility] Comment: This patient? [...] APRN CHEMISTRY ORDERABL ES Performing Organization Address [facility] Co de Phone Number [facility] [place] [address] * Prothrombin Time (05/19/2020 10:25 AM EST) Prothrombin Time 12.4 9.4 - 12.5 sec [facility] International Normalization Ratio 1.1 [facility] Comment: An [...] APRN HEMATOLOGY ORDERAB LES Performing Organization Address [facility] Co de Phone Number [facility] [place] [address] documented in this encounter Visit Diagnoses Diagnosis Hepatic cirrhosis, unspecified hepatic cirrhosis type, unspecified whether ascites present documented in this encounter Care Teams Strategic Partnership Representative Relationship Specialty Start Date End Date Salome Mcarthur, MARBLE SETTER [address] [place] [address] PCP - General Family Medicine 05/30/15 12/11/23 documented as of this encounter
--- OUTSIDE RECORDS SUMMARY | 2024-04-20 15:53 | XMS_ITS | Encounter Summary ---
Author Organization [facility] Address [facility] [place] [address] Care Team Providers Care Motorcycle Riding Instructor Name Role Phone Salome Mcarthur APRN Primary Care Provider [phone] Encounter Details Date Type Department Care Team (Latest Contact Info) Description 10/30/2019 10:30 AM EDT TH Visit (TeleHealth) [place] [address] Molly Cui APRN [facility] [place] [address] Hepatic cirrhosis, unspecified hepatic cirrhosis type, unspecified [...] daily. ??? fluticasone propionate (FLONASE) 50 mcg/actuation [place], Suspension 1 spray daily. ??? pramipexole (MIRAPEX) [...] mouth as needed. Reported on 08/21/2016 ??? [place]-3 Fatty Acids-Vitamin E (FISH OIL) 1,000 mg [...] Cui APRN Section of Gastroenterology [place] [address] Copy: Salome Mcarthur APRN [address] / [place] [id number] Patient verbally consents to this telephone visit [...] 04/28/2024 11:00 AM [place] [address] Molly Cui [facility] [place] [address] 04/28/2024 2:00 PM EST Office [place] [address] Molly Cui [facility] [place] [address] documented as of this encounter Visit Diagnoses Diagnosis Hepatic cirrhosis, unspecified hepatic cirrhosis type, unspecified whether ascites present documented in this encounter Care Teams Motorcycle Riding Instructor Relationship Specialty Start Date End Date Salome Mcarthur APRN [address] [place] [address] PCP - General Family Medicine 05/30/15 12/11/23 documented as of this encounter
--- OUTSIDE RECORDS SUMMARY | 2024-04-20 15:53 | XMS_ITS | Encounter Summary ---
Author Organization [facility] [place] [address] Care Team Providers Care Leather Tooler Name Role Phone Salome Mcarthur APRN Primary Care Provider [phone] Encounter Details Date Type Department Care Team (Latest Contact Info) Description 03/12/2019 11:30 AM EST Laboratory Appointment Lab [address] [place] [address] Hepatic cirrhosis, unspecified hepatic cirrhosis [...] 04/28/2024 11:00 AM EST [place] [address] Molly Cui [facility] [address] 04/28/2024 2:00 PM EST Office [place] [address] Molly Cui [facility] [address] documented as of this encounter [...] 11:39 AM EST) Neutrophil % 57.5 % [facility] Neutrophil Absolute 4.18 1.70 - 6.10 x10(3)/[facility] LABORATORY Lymph % 31.5 % [facility] Lymphocytes Abs 2.3 0.9 - 3.2 x10(3)/[facility] LABORATORY Monocyte % 7.9 % [facility] Monocyte Abs 0.6 0.3 - 0.9 x10(3)/[facility] LABORATORY Eos % 2.1 % [facility] Eosinophils Abs 0.2 0.0 - 0.4 x10(3)/[facility] LABORATORY Basophil % 0.7 % [facility] Baso Absolute 0.0 0.0 - 0.1 x10(3)/[facility] LABORATORY Immature Gran % 0.30 % [facility] Comment: Immature granulocytes(IG's)percentage and absolute count will include metamyelocytes, myelocytes, and promyelocytes. Blood smears from CBCs yielding IG's will be scanned manually for concordance. If this scan disagrees with the automated IG or if promyelocytes are noted, a manual differential will be performed. Immature Gran Absolute 0.02 0.00 - 0.04 x10(3)/mcL [facility] Blood specimen (specimen) 03/12/2019 11:39 AM EST 03/12/2019 11:54 AM EST Narrative Resulting Agency Comment Spec In Lab Molly Cui APRN HEMATOLOGY ORDERAB LES [facility] [place] [address] * (ABNORMAL) Hemogram (03/12/2019 11:39 AM EST) White Blood Cell 7.3 4.0 - 9.5 x10(3)/mc L [facility] Red Blood Cell 4.50 4.00 - 5.21 x10(6)/mc L [facility] Hemoglobin 13.8 11.7 - 15.5 gm/dL [facility] Hematocrit 41.2 35.7 - 45.8 % [facility] Mean Cell Volume 91.6 82.6 - 94.4 fL [facility] Mean Cell Hemoglobin 30.7 27.1 - 32.0 pg [facility] Mean Cell Hemoglobin Concentration 33.5 31.7 - 35.0 gm/dL [facility] Platelet 122(L) 145 - 357 x10(3)/mc L [facility] RDW Standard Deviation 43.8 37.0 - 46.0 fL [facility] RDW coefficient of variation 13.2 11.5 - 14.1 % [facility] Mean Platelet Volume 11.9 7.6 - 12.9 fL [facility] NRBC% auto 0.0 % [facility] NRBC Absolute 0.000 0.000 - 0.000 x10(3)/mc L [facility] Blood specimen (specimen) 03/12/2019 11:39 AM EST 03/12/2019 11:54 AM EST Narrative Resulting Agency Comment Spec In Lab Molly Cui LORETO HEMATOLOGY ORDERAB LES [facility] [place] [address] * (ABNORMAL) Comprehensive metabolic panel (non-fasting) (03/12/2019 11:39 AM EST) Glucose 156 65 - 199 mg/dL [facility] Comment:Diabetes: >=200 mg/d L plus symptoms Blood Urea Nitrogen 19(H) 8 - 18 mg/dL [facility] Creatinine 0.64(L) 0.70 - 1.20 mg/dL [facility] Sodium 143 135 - 145 mmol/L [facility] Potassium 4.1 3.5 - 5.0 mmol/L [facility] Comment: Please note: ??Patients with WBC >100,000 may have falsely elevated Potassium levels. ??For accurate Potassium quantification in these patients send serum separator tube (gold top) for subsequent determinations. ??Contact the Clinical Chemistry Laboratory if there are any questions. Chloride 102 98 - 107 mmol/L [facility] Carbon Dioxide 26 22 - 31 mmol/L [facility] Anion Gap 15 5 - 15 mmol/L [facility] Calcium 10.1 8.5 - 10.5 mg/dL [facility] Protein, Total 7.9 6.1 - 8.0 gm/dL [facility] Albumin 4.4 3.2 - 5.2 gm/dL [facility] Aspartate Aminotransferase 29 0 - 30 unit/L [facility] Alanine Aminotransferase 27 0 - 30 unit/L [facility] Alkaline Phosphatase 91 35 - 105 unit/L [facility] Bilirubin, Total 0.6 0.2 - 1.3 mg/dL [facility] Est Glomerular Filtration Rate 86 >=60 mL/min/1. 73 m?? [facility] Comment: The eGFR was calculated using the CKD-EPI equation. As with all creatinine based estimates of kidney function, eGFR values calculated with the CKD-EPI equation are not accurate in patients with acute kidney failure, extremes of body mass or the acutely ill. http://[employer]/[facility] eGFR 100 >=60 mL/min/1. 73 m?? [facility] Comment: The eGFR was calculated using the CKD-EPI equation. As with all creatinine based estimates of kidney function, eGFR values calculated with the CKD-EPI equation are not accurate in patients with acute kidney failure, extremes of body mass or the acutely ill. http://[employer]/[facility] Blood specimen (specimen) 03/12/2019 11:39 AM EST 03/12/2019 11:53 AM EST Narrative Resulting Agency Comment Spec In Lab Molly Cui APRN CHEMISTRY ORDERABL ES Performing Organization Address [facility]/[place] Co de Phone Number [facility] [place] [address] * (ABNORMAL) Prothrombin Time (03/12/2019 11:39 AM EST) Prothrombin Time 13.5(H) 9.4 - 12.5 sec [facility] International Normalization Ratio 1.2 [facility] Comment: An [...] HEMATOLOGY ORDERAB LES Performing Organization Address [facility]/ZIP Co de Phone Number [facility] [place] [address] documented in this encounter Visit Diagnoses Diagnosis Hepatic cirrhosis, unspecified hepatic cirrhosis type, unspecified whether ascites present documented in this encounter Care Teams Leather Tooler Relationship Specialty Start Date End Date Salome Mcarthur, VETERINARY RECEPTIONIST [address] [place] [address] PCP - General Family Medicine 05/30/15 12/11/23 documented as of this encounter
--- OUTSIDE RECORDS SUMMARY | 2024-04-20 15:53 | XMS_ITS | Encounter Summary ---
Author Organization [facility] [place] [address] Care Team Providers Care Test And Turn Up Technician Name Role Phone Salome Mcarthur APRN Primary Care Provider [phone] Reason for Visit * Reason Onset Date Comments Reminder Appointment 10/30/2019 Encounter Details Date Type Department Care Team (Late st Contact Info) Description 10/30/2019 Telephone [place] [address] Salome Licona CMA Reminder Appointment [...] 04/28/2024 11:00 AM [place] [phone] Molly Cui APRN [facility] [place] [place] [address] 04/28/2024 2:00 PM EST Office [place] [address] Molly Cui APRN [facility] [place] [address] documented as of this encounter Visit Diagnoses Not on filedocumented in this encounter Care Teams Test And Turn Up Technician Relationship Specialty Start Date End Date Salome Mcarthur APRN [address] [place] [address] PCP - General Family Medicine 05/30/15 12/11/23 documented as of this encounter
--- OUTSIDE RECORDS SUMMARY | 2024-04-20 15:53 | XMS_ITS | Encounter Summary ---
Author Organization [facility] [place] [address] Care Team Providers Care Blow Mold Operator Name Role Phone Salome Mcarthur APRN Primary Care Provider [phone] Encounter Details Date Type Department Care Team (Late st Contact Info) Description 06/16/2019 Telephone Gastroenterology at [facility] [address] Emma Chavis Social History Tobacco Use Types [...] - 06/16/2019 10:15 AM EDT Milka Corbett [id number] Diagnosis/Indication: variceal screening 1. Have you ever [...] 04/28/2024 11:00 AM EST Appointment [place] [address] Molly Cui, [facility] [place] [address] 04/28/2024 2:00 PM EST Office Visit [place] [address] Molly Cui, [facility] [place] [address] documented as of this encounter Visit Diagnoses Not on filedocumented in this encounter Care Teams Blow Mold Operator Relationship Specialty Start Date End Date Salome Mcarthur APRN [address] [place] [address] PCP - General Family Medicine 05/30/15 12/11/23 documented as of this encounter
--- OUTSIDE RECORDS SUMMARY | 2024-04-20 15:54 | XMS_ITS | Encounter Summary ---
Author Organization [facility] [place] [address] Care Team Providers Care Wire Mesh Gate Assembler Name Role Phone Salome Mcarthur APRN Primary Care Provider [phone] Reason for Visit * Reason Onset Date Comments Results 03/13/2018 Encounter Details Date Type Department Care Team (Late st Contact Info) Description 03/13/2018 Telephone [place] [address] Jacque Gale, RN Results Social History Tobacco [...] AM EST Appoint[place] [address] Molly Cui, [facility] [place] [address] 04/28/2024 2:00 PM EST Office Visit [place] [address] Molly Cui, [facility] [place] [address] documented as of this encounter Visit Diagnoses Not on filedocumented in this encounter Care Teams Wire Mesh Gate Assembler Relationship Specialty Start Date End Date Salome Mcarthur APRN [address] [place] [address] PCP - General Family Medicine 05/30/15 12/11/23 documented as of this encounter
--- OUTSIDE RECORDS SUMMARY | 2024-04-20 15:54 | XMS_ITS | Encounter Summary ---
Author Organization [facility] Address [facility] [place] [address] Care Team Providers Care Sales And Service Agent Name Role Phone Salome Mcarthur APRN Primary Care Provider Encounter Details Date Type Department Care Team (Latest Contact Info) Description 10/17/2017 - 10/17/2017 11:59 PM EDT Hospital Encounter Radiology Library at [facility] [place] [address] Molly Cui BESSEMER CONVERTER BLOWER [facility] [place] [address] Discharge Disposition: Home Social History Tobacco Use [...] by mouth. 02/24/2009 fluticasone (FLONASE) 50 mcg/actuation [place], Suspension 1 spray by Each Nare route [...] 04/28/2024 11:00 AM EST [place] [address] Molly Cui APRN [facility] [place] [address] 04/28/2024 2:00 PM EST Office [place] [address] Molly Cui APRN [facility] [place] [address] documented as of this encounter Procedures Procedure [...] FILM LIBRARY O RDERABLES Performing Organization Address City/State/[facility] Co de Phone Number [place], [place] documented in this encounter Visit Diagnoses Not on filedocumented in this encounter Care Teams Sales And Service Agent Relationship Specialty Start Date End Date Salome Mcarthur APRN [address] [place] [address] PCP - General Family Medicine 05/30/15 12/11/23 documented as of this encounter
--- OUTSIDE RECORDS SUMMARY | 2024-04-20 15:54 | XMS_ITS | Encounter Summary ---
Author Organization [facility] [place] [address] Care Team Providers Care Exec. Creative Director Name Role Phone Salome Mcarthur APRN Primary Care Provider [phone] Encounter Details Date Type Department Care Team (Late st Contact Info) Description 10/24/2017 Telephone [place] [address] Molly Wallis APRN [facility] [place] [address] Social History Tobacco Use Types Packs/Day Years [...] MOLLY WALLIS APRN PCP: Salome Mcarthur APRN [phone] documented in this encounter Plan of Treatment Upcoming Encounters Date Type Department Care Team (Late st Contact Info) Description 04/28/2024 11:00 AM EST [place] [address] Molly Wallis [facility] [place] [address] 04/28/2024 2:00 PM EST Office [place] [address] Molly Wallis [facility] [address] documented as of this encounter Results * AFP tumor marker (02/26/2018 10:02 AM EST) Alpha Fetoprotein 4.3 <=8.3 ng/mL [facility] Blood specimen (specimen) 02/26/2018 10:02 AM EST 02/26/2018 10:15 AM EST Narrative Resulting Agency Comment Spec In Lab Molly Wallis APRN CHEMISTRY ORDERABL ES [facility] [place] [address] * Prothrombin Time (02/26/2018 10:02 AM EST) Prothrombin Time 11.9 9.4 - 12.5 sec [facility] International Normalization Ratio 1.1 [facility] [...] Lab Molly Wallis LORETO HEMATOLOGY ORDERAB LES [facility] [place] [address] * (ABNORMAL) Comprehensive metabolic panel (non-fasting) (02/26/2018 10:02 AM EST) Glucose 137 65 - 199 mg/dL [facility] Comment:Diabetes: >=200 mg/d L plus symptoms Blood Urea Nitrogen 20(H) 8 - 18 mg/dL [facility] Carbon Dioxide 24 22 - 31 mmol/L [facility] Anion Gap 16(H) 5 - 15 mmol/L [facility] Calcium 10.0 8.5 - 10.5 mg/dL [facility] Protein, Total 7.7 6.1 - 8.0 gm/dL [facility] Albumin 4.5 3.2 - 5.2 gm/dL [facility] Aspartate Aminotransferase 24 0 - 30 unit/L [facility] Alanine Aminotransferase 28 0 - 30 unit/L [facility] Alkaline Phosphatase 81 40 - 104 unit/L [facility] Bilirubin, Total 0.4 0.2 - 1.3 mg/dL [facility] Est Glomerular Filtration Rate 87 >=60 mL/min/1. 73 m?? [facility] Comment: The eGFR was calculated using the CKD-EPI equation. As with all creatinine based estimates of kidney function, eGFR values calculated with the CKD-EPI equation are not accurate in patients with acute kidney failure, extremes of body mass or the acutely ill. http://[employer]/[facility]nk[facility] eGFR 100 >=60 mL/min/1. 73 m?? [facility] Comment: The eGFR was calculated using the CKD-EPI equation. As with all creatinine based estimates of kidney function, eGFR values calculated with the CKD-EPI equation are not accurate in patients with acute kidney failure, extremes of body mass or the acutely ill. [email or web address] Blood specimen (specimen) 02/26/2018 10:02 AM EST 02/26/2018 10:15 AM EST Narrative Resulting Agency Comment Spec In Lab Molly Wallis APRN CHEMISTRY ORDERABL ES Performing Organization Address City/State/[facility] Co de Phone Number [facility] [place] [phone] * US Abdomen Limited (02/26/2018 9:27 AM [...] 10:11 am) PATIENT INFO: ID #: ? [id number] ?: ??[birth year] (77 yrs) Name: ? MILKA MENDIETA ?Visit Date: 02/26/2018 09:24 am PERFORMED BY: Performed By: ? Gabi Mtz RDMS Attending: ?Lily GALLO, Jean Claude [place] Referred By: ?MOLLY WALLIS Location: ? [place] SERVICE(S) PROVIDED: ??UABDLIM - Abdominal Limited Survey Single ? 69743 ??Organ or Quadrant - [id number] INDICATIONS: ??Compensated cirrhosis, assess for HCC COMPARISON: [...] 02/26/2018 10:11 am) PATIENT INFO: ID #: [id number] : [birth year] (77 yrs) Name: MILKA MENDIETA Visit Date: 02/26/2018 09:24 am PERFORMED BY: Performed By: Gabi Mtz RDMS Attending: Jean Claude Bautista MD Referred By: MOLLY WALLIS Location: [place] SERVICE(S) PROVIDED: UABDLIM - Abdominal Limited Survey Single 88163 Organ or Quadrant - [id number] INDICATIONS: Compensated cirrhosis, assess for HCC COMPARISON: [...] Report 02/26/2018 10:11 am Molly Wallis [facility]N [facility] ORDERAB LES documented in this encounter Visit Diagnoses Diagnosis Hepatic cirrhosis, unspecified hepatic cirrhosis type, unspecified whether ascites present Hepatic cirrhosis, unspecified hepatic cirrhosis type, unspecified whether ascites present documented in this encounter Care Teams Exec. Creative Director Relationship Specialty Start Date End Date Salome Mcarthur APRN [address] [place] [address] PCP - General Family Medicine 05/30/15 12/11/23 documented as of this encounter
--- OUTSIDE RECORDS SUMMARY | 2024-04-20 15:54 | XMS_ITS | Encounter Summary ---
Author Organization [facility] [place] [address] Care Team Providers Care Machine Shop Lead Man Name Role Phone Salome Mcarthur APRN Primary Care Provider [phone] Encounter Details Date Type Department Care Team (Late st Contact Info) Description 10/07/2017 Telephone [place] [address] Evy Howard Social History Tobacco [...] local hospital. I have faxed order to [facility] and have asked them to call her to schedule. documented in this encounter Plan of Treatment Upcoming Encounters Date Type Department Care Team (Late st Contact Info) Description 04/28/2024 11:00 AM EST Appointment [place] [address] Molly Cui APRN [facility] [place] [address] 04/28/2024 2:00 PM EST Office Visit [place] [address] Molly Cui APRN [facility] [place] [address] documented as of this encounter Visit Diagnoses Not on filedocumented in this encounter Care Teams Machine Shop Lead Man Relationship Specialty Start Date End Date Salome Mcarthur APRN [address] [place] [address] PCP - General Family Medicine 05/30/15 12/11/23 documented as of this encounter
--- OUTSIDE RECORDS SUMMARY | 2024-04-20 15:54 | XMS_ITS | Encounter Summary ---
Author Organization [facility] Address [facility] [place] [address] Care Team Providers Care Engine Lathe Set Up Operator Tool Name Role Phone Salome Mcarthur APRN Primary Care Provider Encounter Details Date Type Department Care Team (Latest Contact Info) Description 02/26/2018 8:42 AM EST - 02/26/2018 11:59 PM [facility] Hospital En[place] [phone] Molly Wallis [facility] [place] [address] Hepatic cirrhosis, unspecified hepatic cirrhosis type, unspecified [...] 11:00 AM EST Appointment [place] [phone] Molly Wallis, [facility] [address] 04/28/2024 2:00 PM EST Office Visit [place] [address] Molly Wallis, [facility] [address] documented as of this encounter Procedures Procedure [...] 10:11 am) PATIENT INFO: ID #: ? [id number] ?: ??[birth year] (77 yrs) Name: ? MILKA MENDIETA ?Visit Date: 02/26/2018 09:24 am PERFORMED BY: Performed By: ? Gabi Mtz RDMS Attending: ?Lily GALLO, Jean Claude [place] Referred By: ?MOLLY WALLIS Location: ? [place] SERVICE(S) PROVIDED: ??UABDLIM - Abdominal Limited Survey Single ? 63097 ??Organ or Quadrant - [id number] INDICATIONS: ??Compensated cirrhosis, assess for HCC COMPARISON: [...] 02/26/2018 10:11 am) PATIENT INFO: ID #: [id number] : 42 (77 yrs) Name: MILKA MENDIETA Visit Date: 02/26/2018 09:24 am PERFORMED BY: Performed By: Gabi Mtz RDMS Attending: Jean Claude Bautista MD Referred By: MOLLY WALLIS Location: [place] SERVICE(S) PROVIDED: UABDLIM - Abdominal Limited Survey Single 32259 Organ or Quadrant - [id number] INDICATIONS: Compensated cirrhosis, assess for HCC COMPARISON: [...] Report 02/26/2018 10:11 am Molly [facility] documented in this encounter Visit Diagnoses Diagnosis Hepatic cirrhosis, unspecified hepatic cirrhosis type, unspecified whether ascites present documented in this encounter Care Teams Engine Lathe Set Up Operator Tool Relationship Specialty Start Date End Date Salome Mcarthur APRN [address] [place] [address] PCP - General Family Medicine 05/30/15 12/11/23 documented as of this encounter
--- OUTSIDE RECORDS SUMMARY | 2024-04-20 15:54 | XMS_ITS | Encounter Summary ---
Author Organization [facility] [place] [address] Care Team Providers Care Gm Name Role Phone Salome Mcarthur APRN Primary Care Provider [phone] Encounter Details Date Type Department Care Team (Late st Contact Info) Description 08/06/2018 Ancillary Procedure Radiology Library at [place] [phone] Ella Castle MD [address] [place] [id number] Pain Social History Tobacco Use Types Packs/Day [...] 04/28/2024 11:00 AM EST [place] [address] Molly Cui OFFICE DIRECTOR [facility] [place] [address] 04/28/2024 2:00 PM EST Office [place] [phone] Molly Cui APRN [facility] [place] [address] documented as of this encounter Procedures Procedure [...] pain documented in this encounter Care Teams Gm Relationship Specialty Start Date End Date Salome Mcarthur, OFFICE DIRECTOR [address] [place] [address] PCP - General Family Medicine 05/30/15 12/11/23 documented as of this encounter
--- OUTSIDE RECORDS SUMMARY | 2024-04-20 15:54 | XMS_ITS | Encounter Summary ---
[place] [address] Care Team Providers Care Car Dropper Name Role Phone Salome Mcarthur APRN Primary Care Provider [phone] [phone] Encounter Details Date Type Department Care Team (Late st Contact Info) Description 10/07/2017 Orders Only [place] [address] Evy Howard Social History Tobacco Use Types [...] 04/28/2024 11:00 AM EST Appointment [place] [address] Molly Cui [facility] [address] 04/28/2024 2:00 PM EST Office Visit [place] [address] Molly Cui [facility] [address] documented as of this encounter Visit Diagnoses Not on filedocumented in this encounter Care Teams Car Dropper Relationship Specialty Start Date End Date Salome Mcarthur, LORETO [address] [place] [address] PCP - General Family Medicine 05/30/15 12/11/23 documented as of this encounter
--- OUTSIDE RECORDS SUMMARY | 2024-04-20 15:54 | XMS_ITS | Encounter Summary ---
Author Organization [facility] Address [facility] [place] [address] Care Team Providers Care Weigher And Grader Name Role Phone Salome Mcarthur APRN Primary Care Provider [phone] Encounter Details Date Type Department Care Team (Late st Contact Info) Description 09/23/2017 Orders Only [place] [address] Molly aWllis APRN [facility] [place] [address] Lung nodule Social History Tobacco Use Types [...] 1-2 months, per patient preference Will ask senior controls technician to contact. MOLLY WALLIS APRN documented in this encounter Plan of Treatment Upcoming Encounters Date Type Department Care Team (Late st Contact Info) Description 04/28/2024 11:00 AM EST Appointment [place] [address] Molly Wallis, [facility] [place] [address] 04/28/2024 2:00 PM EST Office Visit [place] [address] Molly Wallis, [facility] [place] [address] documented as of this encounter Visit Diagnoses Diagnosis Lung nodule Solitary pulmonary nodule documented in this encounter Care Teams Weigher And Grader Relationship Specialty Start Date End Date Salome Mcarthur, HOUSE REPAIRER [facility] [address] [place] [address] PCP - General Family Medicine 05/30/15 12/11/23 documented as of this encounter
--- OUTSIDE RECORDS SUMMARY | 2024-04-20 15:54 | XMS_ITS | Encounter Summary ---
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; [...] 04/28/2024 11:00 AM EST Appointment [place] [address] Molly Cui [facility] [place] [address] 04/28/2024 2:00 PM EST Office Visit [place] [address] Molly Cui [facility] [place] [address] documented as of this encounter [...] 9:29 AM EST) Neutrophil % 57.3 % [facility] Neutrophil Absolute 4.25 1.70 - 6.10 x10(3)/[facility] LABORATORY Lymph % 32.4 % [facility] Lymphocytes Abs 2.4 0.9 - 3.2 x10(3)/[facility] LABORATORY Monocyte % 7.9 % [facility] Monocyte Abs 0.6 0.3 - 0.9 x10(3)/[facility] LABORATORY Eos % 1.7 % [facility] Eosinophils Abs 0.1 0.0 - 0.4 x10(3)/[facility] LABORATORY Basophil % 0.4 % [facility] Baso Absolute 0.0 0.0 - 0.1 x10(3)/[facility] LABORATORY Immature Gran % 0.30 % [facility] Comment: Immature granulocytes(IG's)percentage and absolute count will include metamyelocytes, myelocytes, and promyelocytes. Blood smears from CBCs yielding IG's will be scanned manually for concordance. If this scan disagrees with the automated IG or if promyelocytes are noted, a manual differential will be performed. Immature Gran Absolute 0.02 0.00 - 0.04 x10(3)/[facility] LABORATORY Blood specimen (specimen) 02/22/2017 9:29 AM EST 02/22/2017 9:33 AM EST Narrative Resulting Agency Comment Spec In Lab Molly Cui [facility] HEMATOLOGY ORDERAB LES [facility] [place] [address] * (ABNORMAL) Hemogram (02/22/2017 9:29 AM EST) White Blood Cell 7.4 4.0 - 9.5 x10(3)/mc L [facility] Red Blood Cell 4.49 4.00 - 5.21 x10(6)/mc L [facility] Hemoglobin 14.3 11.7 - 15.5 gm/dL [facility] Hematocrit 40.5 35.7 - 45.8 % [facility] Mean Cell Volume 90.2 82.6 - 94.4 fL [facility] Mean Cell Hemoglobin 31.8 27.1 - 32.0 pg [facility] Mean Cell Hemoglobin Concentration 35.3(H) 31.7 - 35.0 gm/dL [facility] Platelet 139(L) 145 - 357 x10(3)/mc L [facility] RDW Standard Deviation 40.0 37.0 - 46.0 fL [facility] RDW coefficient of variation 12.2 11.5 - 14.1 % [facility] Mean Platelet Volume 11.0 7.6 - 12.9 fL [facility] NRBC% auto 0.0 % [facility] NRBC Absolute 0.000 0.000 - 0.000 x10(3)/mc L [facility] Blood specimen (specimen) 02/22/2017 9:29 AM EST 02/22/2017 9:33 AM EST Narrative Resulting Agency Comment Spec In Lab Mollyjuan a Cui THEATER MANAGER HEMATOLOGY ORDERAB LES Performing Organization Address City/[facility] de Phone Number [facility] [place] [address] * Prothrombin Time (02/22/2017 9:29 AM EST) Pathologist [facility] Prothrombin Time 13.3 11.8 - 14.0 sec [facility] International Normalization Ratio 1.0 0.9 - 1.1 [facility] Comment: An [...] APRN HEMATOLOGY ORDERAB LES Performing Organization Address [facility] Co de Phone Number [facility] [place] [address] * (ABNORMAL) Comprehensive metabolic panel (non-fasting) (02/22/2017 9:29 AM EST) Pathologist [facility] Glucose 209(H) 65 - 199 mg/dL [facility] Comment:Diabetes: >=200 mg/d L plus symptoms Blood Urea Nitrogen 18 8 - 18 mg/dL [facility] Creatinine 0.64(L) 0.70 - 1.20 mg/dL [facility] Sodium 136 135 - 145 mmol/L [facility] Potassium 4.2 3.5 - 5.0 mmol/L [facility] Comment: Please note: ??Patients with WBC >100,000 may have falsely elevated Potassium levels. ??For accurate Potassium quantification in these patients send serum separator tube (gold top) for subsequent determinations. ??Contact the Clinical Chemistry Laboratory if there are any questions. Chloride 96(L) 98 - 107 mmol/L [facility] Carbon Dioxide 26 22 - 31 mmol/L [facility] Anion Gap 14 5 - 15 mmol/L [facility] Calcium 10.2 8.5 - 10.5 mg/dL [facility] Protein, Total 7.1 6.1 - 8.0 gm/dL [facility] Albumin 4.6 3.2 - 5.2 gm/dL [facility] Aspartate Aminotransferase 26 0 - 30 unit/L [facility] Alanine Aminotransferase 29 0 - 30 unit/L [facility] Alkaline Phosphatase 74 40 - 104 unit/L [facility] Bilirubin, Total 0.4 0.2 - 1.3 mg/dL [facility] Est Glomerular Filtration Rate >60 >=60 [facility] Comment: The reported eGFR should be multiplied by 1.2 for patients. The MDRD is not an appropriate measure of renal function for patients with body mass extremes or in patients with acute kidney failure. 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
--- OUTSIDE RECORDS SUMMARY | 2024-04-20 15:54 | XMS_ITS | Encounter Summary ---
[place] [address] Care Team Providers Care Operational Risk Consultant Name Role Phone Salome Mcarthur APRN Primary Care Provider [phone] Encounter Details Date Type Department Care Team (Late st Contact Info) Description 10/17/2017 External Results [place] [phone] Malika Cantrell RN Social History Tobacco Use [...] 11:00 AM EST Appointment [place] [address] Molly Cui [facility] [place] [address] 04/28/2024 2:00 PM EST Office [place] [address] Molly Cui [facility] [place] [address] documented as of this encounter Procedures Procedure [...] Normalization Ratio 1.0 10/17/2017 Historical Provider MD CATRACHIAT RICH documented in this encounter Visit Diagnoses Not on filedocumented in this encounter Care Teams Operational Risk Consultant Relationship Specialty Start Date End Date Salome Mcarthur, CONSTRUCTION DRILLER [facility] [address] [place] [address] PCP - General Family Medicine 05/30/15 12/11/23 documented as of this encounter
--- OUTSIDE RECORDS SUMMARY | 2024-04-20 15:54 | XMS_ITS | Encounter Summary ---
[place] [address] Care Team Providers Care Special Education Professor Name Role Phone Salome Mcarthur APRN Primary Care Provider [phone] Reason for Referral * Diagnostic Test (Routine) - Closed Specialty Diagnoses / Procedures Referred By Contac t Referred To Contact Radiology Diagnoses NAFLD (nonalcoholic fatty liver disease) Procedures MRI Abdomen wwo Contrast (Generic) Molly Cui INDUSTRIAL RELATIONS ANALYST [facility] [place] [address] [place] [address] Referral ID Status Reason Start Date Expiration Date V isits Requested Visits Authorized [id number] Closed Specialty Service Requested 08/22/2017 08/22/2018 1 1 Reason for Visit * Diagnostic Test (Routine) - Closed Specialty Diagnoses / Procedures Referred By Contac t Referred To Contact Radiology Diagnoses NAFLD (nonalcoholic fatty liver disease) Procedures MRI Abdomen wwo Contrast (Generic) Molly Cui INDUSTRIAL RELATIONS ANALYST [facility] [place] [address] [place] [address] Referral ID Status Reason Start Date Expiration Date V isits Requested Visits Authorized [id number] Closed Specialty Service Requested 08/22/2017 08/22/2018 1 1 Encounter Details Date Type Department Care Team (Latest Contact Info) Description 09/20/2017 2:41 PM EDT - 09/20/2017 11:59 PM EDT Hospital Encounter MRI at [facility] [place] [address] Molly Cui APRN [facility] [place] [address] NAFLD (nonalcoholic fatty liver disease) Discharge Disposition: [...] by mouth. 02/24/2009 fluticasone (FLONASE) 50 mcg/actuation [place], Suspension 1 spray by Each Nare route [...] 11:00 AM EST Appoint[place] [address] Molly Cui, [facility] [place] [address] 04/28/2024 2:00 PM EST Office [place] [address] Molly Cui, [facility] [place] [address] documented as of this encounter Procedures Procedure [...] Resulting Agency Comment Unexpected Finding Molly Cui INDUSTRIAL RELATIONS ANALYST IMG MRI ORDERABLES documented in this encounter [...] mLs documented in this encounter Care Teams Special Education Professor Relationship Specialty Start Date End Date Salome Mcarthur, INDUSTRIAL RELATIONS ANALYST [address] [place] [address] PCP - General Family Medicine 05/30/15 12/11/23 documented as of this encounter
--- OUTSIDE RECORDS SUMMARY | 2024-04-20 15:54 | XMS_ITS | Encounter Summary ---
Author Organization [facility] Address [facility] [place] [address] Care Team Providers Care Item Processor Name Role Phone Salome Mcarthur APRN Primary Care Provider [phone] Encounter Details Date Type Department Care Team (Latest Contact Info) Description 08/22/2017 9:14 AM EDT - 08/22/2017 11:59 PM EDT Hospital [place] [address] Molly Wallis MANAGEMENT DEVELOPMENT SPECIALIST [facility] [place] [address] NAFLD (nonalcoholic fatty liver disease) Discharge Disposition: [...] by mouth. 02/24/2009 fluticasone (FLONASE) 50 mcg/actuation [place], Suspension 1 spray by Each Nare route [...] 04/28/2024 11:00 AM [place] [address] Molly Wallis APRN [facility] [place] [address] 04/28/2024 2:00 PM EST Office [place] [address] Molly Wallis APRN [facility] [place] [address] documented as of this encounter Procedures Procedure [...] 12:24 pm) PATIENT INFO: ID #: ? [id number] ?: ??[birth year] (77 yrs) Name: ? MILKA MENDIETA ?Visit Date: 08/22/2017 09:52 am PERFORMED BY: Performed By: ? Mary HI, ??Lis Attending: ?Jaja GALLO, Sumi Kang Resident: ? Aryan GALLO, Estephanie Nolen Referred By: ?MOLLY WALLIS Secondary Phy.: ?? MOLLY WALLIS MANAGEMENT DEVELOPMENT SPECIALIST Location: ? [place] SERVICE(S) PROVIDED: ??BD - Abdominal Complete Survey - [id number] ?[id number] INDICATIONS: ??Cirrhosis, survey for hepatoma COMPARISON: RUQ [...] disease documented in this encounter Care Teams Item Processor Relationship Specialty Start Date End Date Salome Mcarthur APRN [address] [place] [address] PCP - General Family Medicine 05/30/15 12/11/23 documented as of this encounter
--- OUTSIDE RECORDS SUMMARY | 2024-04-20 15:54 | XMS_ITS | Encounter Summary ---
[place] [address] Care Team Providers Care Regional Economist Name Role Phone Salome Mcarthur APRN Primary Care Provider [phone] Reason for Referral * Diagnostic Test (Routine) - Closed Specialty Diagnoses / Procedures Referred By Contac t Referred To Contact Radiology Diagnoses Hepatic cirrhosis, unspecified hepatic cirrhosis type, unspecified whether ascites present Procedures MRI Abdomen wwo Contrast (Generic) Molly Cui APRN [facility] [place] [address] [place] [address] Referral ID Status Reason Start Date Expiration Date V isits Requested Visits Authorized [id number] Closed Specialty Service Requested 02/26/2018 02/26/2019 1 1 Reason for Visit * Diagnostic Test (Routine) - Closed Specialty Diagnoses / Procedures Referred By Contac t Referred To Contact Radiology Diagnoses Hepatic cirrhosis, unspecified hepatic cirrhosis type, unspecified whether ascites present Procedures MRI Abdomen wwo Contrast (Generic) Molly Cui APRN [facility] [place] [address] [place] [address] Referral ID Status Reason Start Date Expiration Date V isits Requested Visits Authorized [id number] Closed Specialty Service Requested 02/26/2018 02/26/2019 1 1 Encounter Details Date Type Department Care Team (Latest Contact Info) Description 03/08/2018 10:57 AM EST - 03/08/2018 11:59 PM EST Hospital Encounter MRI [place] [facility] [place] [address] Molly Cui, HAZARDOUS MATERIALS TANKER DRIVER [facility] [place] [address] Hepatic cirrhosis, unspecified hepatic cirrhosis type, unspecified [...] 04/28/2024 11:00 AM [place] [address] Molly Cui, [facility] [place] [address] 04/28/2024 2:00 PM EST Office [place] [address] Molly Cui, [facility] [place] [address] documented as of this encounter Procedures Procedure [...] demonstrate a somewhat reticular pattern of high U8qqmbrl intensity most pronounced in the inferior right [...] made given differences in technique. Recommend reference [facility] CT report for management guidelines. 4. [...] mLs documented in this encounter Care Teams Regional Economist Relationship Specialty Start Date End Date Salome Mcarthur APRN [address] [place] [address] PCP - General Family Medicine 05/30/15 12/11/23 documented as of this encounter
--- OUTSIDE RECORDS SUMMARY | 2024-04-20 15:54 | XMS_ITS | Encounter Summary ---
Author Organization [facility] [place] [address] Care Team Providers Care Crane Crew Supervisor Name Role Phone Salome Mcarthur APRN Primary Care Provider [phone] Reason for Visit * Reason Comments Follow-up Encounter Details Date Type Department Care Team (Late st Contact Info) Description 09/10/2018 1:30 PM EDT Office [place] [address] Molly Wallis APRN [facility] [place] [address] Hepatic cirrhosis, unspecified hepatic cirrhosis type, unspecified [...] Refill ??? fluticasone propionate (FLONASE) 50 mcg/actuation [place], Suspension 1 spray daily. ??? pramipexole (MIRAPEX) [...] mouth every 4 hours as needed. ??? [place]-3 Fatty Acids-Vitamin E (FISH OIL) 1,000 mg [...] Wallis APRN Section of Gastroenterology [place] [address] Copy: Salome Mcarthur APRN [address] / [place] [address] 25 of this 30 minute visit in face to face discussion regarding disease, prognosis and treatment documented in this encounter Plan of Treatment Upcoming Encounters Date Type Department Care Team (Late st Contact Info) Description 04/28/2024 11:00 AM EST Appointment [place] [address] Molly Wallis APRN [facility] [place] [address] 04/28/2024 2:00 PM EST Office Visit [place] [address] Molly Wallis APRN [facility] [place] [address] documented as of this encounter Results * (ABNORMAL) Prothrombin Time (03/12/2019 11:39 AM EST) Prothrombin Time 13.5(H) 9.4 - 12.5 sec [facility] [...] HEMATOLOGY ORDERAB LES [facility] [place] [address] * (ABNORMAL) Comprehensive metabolic panel (non-fasting) (03/12/2019 11:39 AM EST) Glucose 156 65 - 199 mg/dL [facility] Comment:Diabetes: >=200 mg/d L plus symptoms Blood Urea Nitrogen 19(H) 8 - 18 mg/dL [facility] Creatinine 0.64(L) 0.70 - 1.20 mg/dL [facility] Sodium 143 135 - 145 mmol/L [facility] Potassium 4.1 3.5 - 5.0 mmol/L [facility] Comment: Please note: ??Patients with WBC >100,000 may have falsely elevated Potassium levels. ??For accurate Potassium quantification in these patients send serum separator tube (gold top) for subsequent determinations. ??Contact the Clinical Chemistry Laboratory if there are any questions. Chloride 102 98 - 107 mmol/L [facility] Carbon Dioxide 26 22 - 31 mmol/L [facility] Anion Gap 15 5 - 15 mmol/L [facility] Calcium 10.1 8.5 - 10.5 mg/dL [facility] Protein, Total 7.9 6.1 - 8.0 gm/dL [facility] Albumin 4.4 3.2 - 5.2 gm/dL [facility] Aspartate Aminotransferase 29 0 - 30 unit/L [facility] Alanine Aminotransferase 27 0 - 30 unit/L [facility] Alkaline Phosphatase 91 35 - 105 unit/L [facility] Bilirubin, Total 0.6 0.2 - 1.3 mg/dL [facility] Est Glomerular Filtration Rate 86 >=60 mL/min/1. 73 m?? [facility] Comment: The eGFR was calculated using the CKD-EPI equation. As with all creatinine based estimates of kidney function, eGFR values calculated with the CKD-EPI equation are not accurate in patients with acute kidney failure, extremes of body mass or the acutely ill. http://[employer]/DHMCnkf eGFR 100 >=60 mL/min/1. 73 m?? [facility] Comment: The eGFR was calculated using the CKD-EPI equation. As with all creatinine based estimates of kidney function, eGFR values calculated with the CKD-EPI equation are not accurate in patients with acute kidney failure, extremes of body mass or the acutely ill. http://[employer]/DHMCnkf Blood specimen (specimen) 03/12/2019 11:39 AM EST 03/12/2019 11:53 AM EST Narrative Resulting Agency Comment Spec In Lab Molly Wallis APRN CHEMISTRY ORDERABL ES [facility] [place] [address] * US Abdomen Limited Hepatology Protocol (03/12/2019 [...] below. Electronically signed by: Jean Claude Bautista [facility] ([phone]), at 03/12/2019 1:48 PM ? Jean Claude Bautista, Staff Physician Electronically Signed Final Report ?? 03/12/2019 01:55 pm Narrative 03/12/2019 1:55 PM EST Abdominal ? (Signed Final 03/12/2019 01:55 pm) PATIENT INFO: ID #: ? [id number] ?: ??[birth year] (78 yrs) Name: ? MILKA MENDIETA ?Visit Date: 03/12/2019 11:07 am PERFORMED BY: Performed By: ? Tigist Castellanos RDMS Attending: ?Lily GALLO, Jean Claude [place] Resident: ? Ruchi GALLO, Kal Montesinos Referred By: ?MOLLY WALLIS Secondary Phy.: ?? MOLLY WALLIS PICTURES EDITOR Location: ? [place] SERVICE(S) PROVIDED: ??UABDLIM - Hepatology Protocol - Abdominal ? [id number] ??Limited Survey Single Organ or Quadrant - ??[id number] INDICATIONS: ??cirrhosis, survey for hcc ------ LIVER: [...] 03/12/2019 01:55 pm) PATIENT INFO: ID #: [id number] : 42 (78 yrs) Name: MILKA MENDIETA Visit Date: 03/12/2019 11:07 am PERFORMED BY: Performed By: Tigist Castellanos RDMS Attending: Jean Claude Bautista MD Resident: Kal Hopper MD Referred By: MOLLY WALLIS Secondary Phy.: MOLLY WALLIS APRN Location: [place] SERVICE(S) PROVIDED: UABDLIM - Hepatology Protocol - Abdominal [id number] Limited Survey Single Organ or Quadrant - [id number] INDICATIONS: cirrhosis, survey for hcc ------ LIVER: [...] below. Electronically signed by: Jean Claude Bautista, [facility] ([phone]), at 03/12/2019 1:48 PM Jean Claude Bautista, Staff Physician Electronically Signed Final Report 03/12/2019 01:55 pm Molly Wallis PICTURES EDITOR IMG GEN ORDERAB LES documented in this encounter Visit Diagnoses Diagnosis Hepatic cirrhosis, unspecified hepatic cirrhosis type, unspecified whether ascites present Hepatic cirrhosis, unspecified hepatic cirrhosis type, unspecified whether ascites present documented in this encounter Care Teams Crane Crew Supervisor Relationship Specialty Start Date End Date Salome Mcarthur APRN [address] [place] [address] PCP - General Family Medicine 05/30/15 12/11/23 documented as of this encounter
--- OUTSIDE RECORDS SUMMARY | 2024-04-20 15:54 | XMS_ITS | Encounter Summary ---
Author Organization [facility] [place] [address] Care Team Providers Care Web Communications Specialist Name Role Phone Salome Mcarthur APRN Primary Care Provider [phone] Encounter Details Date Type Department Care Team (Latest Contact Info) Description 02/26/2018 9:30 AM EST Laboratory Appointment Lab [address] [place] [address] Hepatic cirrhosis, unspecified hepatic cirrhosis [...] 11:00 AM EST Appointment [place] [address] Molly Cui [facility] [place] [address] 04/28/2024 2:00 PM EST Office Visit G[place] [address] Molly Cui FOURDRINIER MACHINE TENDER [facility] GA[facility] [place], [place] [id number] documented as of this encounter Procedures Procedure [...] 10:02 AM EST) Neutrophil % 57.5 % [facility] Neutrophil Absolute 3.52 1.70 - 6.10 x10(3)/[facility] LAB[facility] Lymph % 31.0 % [facility] Lymphocytes Abs 1.9 0.9 - 3.2 x10(3)/[facility] LABOR[facility]ORY Monocyte % 9.1 % [facility] Monocyte Abs 0.6 0.3 - 0.9 x10(3)/[facility] LABOR[facility] Eos % 1.6 % [facility] Eosinophils Abs 0.1 0.0 - 0.4 x10(3)/[facility] LABORATORY Basophil % 0.5 % [facility] Baso Absolute 0.0 0.0 - 0.1 x10(3)/[facility] LABORATORY Immature Gran % 0.30 % [facility] Comment: Immature granulocytes(IG's)percentage and absolute count will include metamyelocytes, myelocytes, and promyelocytes. Blood smears from CBCs yielding IG's will be scanned manually for concordance. If this scan disagrees with the automated IG or if promyelocytes are noted, a manual differential will be performed. Immature Gran Absolute 0.02 0.00 - 0.04 x10(3)/mcL [facility] Blood specimen (specimen) 02/26/2018 10:02 AM EST 02/26/2018 10:15 AM EST Narrative Resulting Agency Comment Spec In Lab Molly Cui APRN HEMATOLOGY ORDERAB LES [facility] [place] [address] * (ABNORMAL) Hemogram (02/26/2018 10:02 AM EST) White Blood Cell 6.1 4.0 - 9.5 x10(3)/mc L [facility] Red Blood Cell 4.49 4.00 - 5.21 x10(6)/mc L [facility] Hemoglobin 14.1 11.7 - 15.5 gm/dL [facility] Hematocrit 41.4 35.7 - 45.8 % [facility] Mean Cell Volume 92.2 82.6 - 94.4 fL [facility] Mean Cell Hemoglobin 31.4 27.1 - 32.0 pg [facility] Mean Cell Hemoglobin Concentration 34.1 31.7 - 35.0 gm/dL [facility] Platelet 111(L) 145 - 357 x10(3)/mc L [facility] RDW Standard Deviation 42.4 37.0 - 46.0 fL [facility] RDW coefficient of variation 12.5 11.5 - 14.1 % [facility] Mean Platelet Volume 11.8 7.6 - 12.9 fL [facility] NRBC% auto 0.0 % [facility] NRBC Absolute 0.000 0.000 - 0.000 x10(3)/mc L [facility] Blood specimen (specimen) 02/26/2018 10:02 AM EST 02/26/2018 10:15 AM EST Narrative Resulting Agency Comment Spec In Lab Molly Cui FOURDRINIER MACHINE TENDER HEMATOLOGY ORDERAB LES [facility] [place] [address] * (ABNORMAL) Comprehensive metabolic panel (non-fasting) (02/26/2018 10:02 AM EST) Glucose 137 65 - 199 mg/dL [facility] Comment:Diabetes: >=200 mg/d L plus symptoms Blood Urea Nitrogen 20(H) 8 - 18 mg/dL [facility] Creatinine 0.64(L) 0.70 - 1.20 mg/dL [facility] Sodium 141 135 - 145 mmol/L [facility] Potassium 4.3 3.5 - 5.0 mmol/L [facility] Comment: Please note: ??Patients with WBC >100,000 may have falsely elevated Potassium levels. ??For accurate Potassium quantification in these patients send serum separator tube (gold top) for subsequent determinations. ??Contact the Clinical Chemistry Laboratory if there are any questions. Chloride 101 98 - 107 mmol/L [facility] Carbon Dioxide 24 22 - 31 mmol/L [facility] Anion Gap 16(H) 5 - 15 mmol/L [facility] Calcium 10.0 8.5 - 10.5 mg/dL [facility] Protein, Total 7.7 6.1 - 8.0 gm/dL [facility] Albumin 4.5 3.2 - 5.2 gm/dL [facility] Aspartate Aminotransferase 24 0 - 30 unit/L [facility] Alanine Aminotransferase 28 0 - 30 unit/L [facility] Alkaline Phosphatase 81 40 - 104 unit/L [facility] Bilirubin, Total 0.4 0.2 - 1.3 mg/dL [facility] Est Glomerular Filtration Rate 87 >=60 mL/min/1. 73 m?? [facility] Comment: The eGFR was calculated using the CKD-EPI equation. As with all creatinine based estimates of kidney function, eGFR values calculated with the CKD-EPI equation are not accurate in patients with acute kidney failure, extremes of body mass or the acutely ill. http://[employer]/[facility] eGFR 100 >=60 mL/min/1. 73 m?? [facility] Comment: The eGFR was calculated using the CKD-EPI equation. As with all creatinine based estimates of kidney function, eGFR values calculated with the CKD-EPI equation are not accurate in patients with acute kidney failure, extremes of body mass or the acutely ill. http://[employer]/[facility] CITYnkf Blood specimen (specimen) 02/26/2018 10:02 AM EST 02/26/2018 10:15 AM EST Narrative Resulting Agency Comment Spec In Lab Molly Cui APRN CHEMISTRY ORDERABL ES [facility] [place] [address] * Prothrombin Time (02/26/2018 10:02 AM EST) Prothrombin Time 11.9 9.4 - 12.5 sec [facility] International Normalization Ratio 1.1 [facility] Comment: An INR [...] APRN HEMATOLOGY ORDERAB LES Performing Organization Address City/[facility]/ZIP Co de Phone Number [facility] [place] [address] * AFP tumor marker (02/26/2018 10:02 AM EST) Alpha Fetoprotein 4.3 <=8.3 ng/mL [facility] Blood specimen (specimen) 02/26/2018 10:02 AM EST 02/26/2018 10:15 AM EST Narrative Resulting Agency Comment Spec In Lab Molly Sharron Basilia DANGELO CHEMISTRY ORDERABL ES Performing Organization Address [facility] Co de Phone Number [facility] [place] [address] documented in this encounter Visit Diagnoses Diagnosis Hepatic cirrhosis, unspecified hepatic cirrhosis type, unspecified whether ascites present NAFLD (nonalcoholic fatty liver disease) Other chronic nonalcoholic liver disease documented in this encounter Care Teams Web Communications Specialist Relationship Specialty Start Date End Date Salome Mcarthur APRN [address] [place] [address] PCP - General Family Medicine 05/30/15 12/11/23 documented as of this encounter
--- OUTSIDE RECORDS SUMMARY | 2024-04-20 15:54 | XMS_ITS | Encounter Summary ---
Author Organization [facility] [place] [address] Care Team Providers Care Food Service Steward Name Role Phone Salome Mcarthur APRN Primary Care Provider [phone] Encounter Details Date Type Department Care Team (Latest Contact Info) Description 08/22/2017 10:30 AM EDT Laboratory Appointment Lab [address] [place] [address] NAFLD (nonalcoholic fatty liver disease) [...] 04/28/2024 11:00 AM EST Appointment [place] [address] Molly Cui [facility] [place] [address] 04/28/2024 2:00 PM EST Office Visit [place] [address] Molly Cui [facility] [place] [address] documented as of this encounter Procedures Procedure [...] 10:25 AM EDT) Neutrophil % 52.1 % [facility] Neutrophil Absolute 2.92 1.70 - 6.10 x10(3)/[facility] LABORATORY Lymph % 35.9 % [facility] Lymphocytes Abs 2.0 0.9 - 3.2 x10(3)/[facility] LABORATORY Monocyte % 9.1 % [facility] Monocyte Abs 0.5 0.3 - 0.9 x10(3)/[facility] LABORATORY Eos % 1.8 % [facility] Eosinophils Abs 0.1 0.0 - 0.4 x10(3)/[facility] LABORATORY Basophil % 0.7 % [facility] Baso Absolute 0.0 0.0 - 0.1 x10(3)/[facility] LABORATORY Immature Gran % 0.40 % [facility] Comment: Immature granulocytes(IG's)percentage and absolute count will include metamyelocytes, myelocytes, and promyelocytes. Blood smears from CBCs yielding IG's will be scanned manually for concordance. If this scan disagrees with the automated IG or if promyelocytes are noted, a manual differential will be performed. Immature Gran Absolute 0.02 0.00 - 0.04 x10(3)/mcL [facility] Blood specimen (specimen) 08/22/2017 10:25 AM EDT 08/22/2017 10:43 AM EDT Narrative Resulting Agency Comment Spec In Lab Molly Cui BILINGUAL KINDERGARTEN TEACHER HEMATOLOGY ORDERAB LES [facility] [place] [address] * (ABNORMAL) Hemogram (08/22/2017 10:25 AM EDT) White Blood Cell 5.6 4.0 - 9.5 x10(3)/mc L [facility] Red Blood Cell 4.42 4.00 - 5.21 x10(6)/mc L [facility] Hemoglobin 14.0 11.7 - 15.5 gm/dL [facility] Hematocrit 40.5 35.7 - 45.8 % [facility] Mean Cell Volume 91.6 82.6 - 94.4 fL [facility] Mean Cell Hemoglobin 31.7 27.1 - 32.0 pg [facility] Mean Cell Hemoglobin Concentration 34.6 31.7 - 35.0 gm/dL [facility] Platelet 118(L) 145 - 357 x10(3)/mc L [facility] RDW Standard Deviation 42.4 37.0 - 46.0 [facility] LABORATORY RDW coefficient of variation 12.6 11.5 - 14.1 % [facility] Mean Platelet Volume 11.9 7.6 - 12.9 fL [facility] NRBC% auto 0.0 % [facility] NRBC Absolute 0.000 0.000 - 0.000 x10(3)/mc L [facility] Blood specimen (specimen) 08/22/2017 10:25 AM EDT 08/22/2017 10:43 AM EDT Narrative Resulting Agency Comment Spec In Lab Molly Cui APRN HEMATOLOGY ORDERAB LES Performing Organization Address [facility] Co de Phone Number [facility] [place] [address] * Prothrombin Time (08/22/2017 10:25 AM EDT) Pathologist [facility] Prothrombin Time 11.7 9.4 - 12.5 sec [facility] International Normalization Ratio 1.0 [facility] Comment: An INR [...] APRN HEMATOLOGY ORDERAB LES Performing Organization Address [facility] Co de Phone Number [facility] [address] * (ABNORMAL) Comprehensive metabolic panel (non-fasting) (08/22/2017 10:25 AM EDT) Pathologist [facility] Glucose 163 65 - 199 mg/dL [facility] Comment:Diabetes: >=200 mg/d L plus symptoms Blood Urea Nitrogen 14 8 - 18 mg/dL [facility] Creatinine 0.57(L) 0.70 - 1.20 mg/dL [facility] Sodium 141 135 - 145 mmol/L [facility] Potassium 4.3 3.5 - 5.0 mmol/L [facility] Comment: Please note: ??Patients with WBC >100,000 may have falsely elevated Potassium levels. ??For accurate Potassium quantification in these patients send serum separator tube (gold top) for subsequent determinations. ??Contact the Clinical Chemistry Laboratory if there are any questions. Chloride 99 98 - 107 mmol/L [facility] Carbon Dioxide 28 22 - 31 mmol/L [facility] Anion Gap 14 5 - 15 mmol/L [facility] Calcium 10.3 8.5 - 10.5 mg/dL [facility] Protein, Total 7.4 6.1 - 8.0 gm/dL [facility] Albumin 5.0 3.2 - 5.2 gm/dL [facility] Aspartate Aminotransferase 30 0 - 30 unit/L [facility] Alanine Aminotransferase 32(H) 0 - 30 unit/L [facility] Alkaline Phosphatase 72 40 - 104 unit/L [facility] Bilirubin, Total 0.5 0.2 - 1.3 mg/dL [facility] Est Glomerular Filtration Rate >60 >=60 [facility] Comment: The reported eGFR should be multiplied by 1.2 for patients. The MDRD is not an appropriate measure of renal function for patients with body mass extremes or in patients with acute kidney failure. http://[employer]/DHnkdep http://[employer]/DHMCnkf Blood specimen (specimen) 08/22/2017 10:25 AM EDT 08/22/2017 10:43 AM EDT Narrative Resulting Agency Comment Spec In Lab Molly Cui APRN CHEMISTRY ORDERABL ES [facility] [place] [address] documented in this encounter Visit Diagnoses Diagnosis NAFLD (nonalcoholic fatty liver disease) Other chronic nonalcoholic liver disease documented in this encounter Care Teams Food Service Steward Relationship Specialty Start Date End Date Salome Mcarthur APRN [address] [place] [address] PCP - General Family Medicine 05/30/15 12/11/23 documented as of this encounter
--- OUTSIDE RECORDS SUMMARY | 2024-04-20 15:54 | XMS_ITS | Encounter Summary ---
Author Organization [facility] [place] [address] Care Team Providers Care Apartment Locator Name Role Phone Salome Mcarthur APRN Primary Care Provider [phone] Reason for Referral * Diagnostic Test (Routine) - Closed Specialty Diagnoses / Procedures Referred By Contruth t Referred To Contact Radiology Diagnoses NAFLD (nonalcoholic fatty liver disease) Procedures MRI Abdomen wwo Contrast (Generic) Molly Cui APRN [facility] [place] [address] [place] [address] Referral ID Status Reason Start Date Expiration Date V isits Requested Visits Authorized [id number] Closed Specialty Service Requested 08/22/2017 08/22/2018 1 1 Reason for Visit * Reason Comments Follow-up Patient is here for a follow up labs. Encounter Details Date Type Department Care Team (Late st Contact Info) Description 08/22/2017 11:30 AM EDT Office [place] [address] Molly Cui GLASS WASHER [facility] [place] [place] [address] NAFLD (nonalcoholic fatty liver disease) [...] mouth every 4 hours as needed. ??? [place]-3 Fatty Acids-Vitamin E (FISH OIL) 1,000 mg [...] Cui APRN Section of Gastroenterology [place] [address] Copy: Salome Mcarthur APRN [address] [facility] [place] [facility] [place] [address] 25 of this 30 minute visit in face to face discussion regarding disease, prognosis and treatment documented in this encounter Plan of Treatment Upcoming Encounters Date Type Department Care Team (Late st Contact Info) Description 04/28/2024 11:00 AM [place] [phone] Molly Cui APRN [facility] [place] [address] 04/28/2024 2:00 PM EST Office [place] [phone] Molly Cui APRN [facility] [place] [address] Scheduled Orders Name Type Priority Associated Diagnoses [...] disease documented in this encounter Care Teams Apartment Locator Relationship Specialty Start Date End Date Salome Mcarthur APRN [address] [place] [address] PCP - General Family Medicine 05/30/15 12/11/23 documented as of this encounter
--- OUTSIDE RECORDS SUMMARY | 2024-04-20 15:54 | XMS_ITS | Encounter Summary ---
[place] [address] Care Team Providers Care Cloth Shrinking Tester Name Role Phone Salome Mcarthur APRN Primary Care Provider [phone] Encounter Details Date Type Department Care Team (Late st Contact Info) Description 07/15/2018 Orders Only Gastroenterology at [place] [phone] Crista Kyle Social History Tobacco Use Types [...] 04/28/2024 11:00 AM EST Appointment Ultrasound at [place] [phone] Molly Cui [facility] [place] [address] 04/28/2024 2:00 PM EST Office [place] [address] Molly Cui [facility] [place] [address] documented as of this encounter Visit Diagnoses Not on filedocumented in this encounter Care Teams Cloth Shrinking Tester Relationship Specialty Start Date End Date Salome Mcarthur, LORETO [address] [place] [address] PCP - General Family Medicine 05/30/15 12/11/23 documented as of this encounter
--- OUTSIDE RECORDS SUMMARY | 2024-04-20 15:54 | XMS_ITS | Encounter Summary ---
Author Organization [facility] [place] [address] Care Team Providers Care Certified Prosthetist Name Role Phone Salome Mcarthur APRN Primary Care Provider [phone] Encounter Details Date Type Department Care Team (Late st Contact Info) Description 07/14/2018 Telephone [place] [phone] Crista Kyle Social History Tobacco Use Types [...] 04/28/2024 11:00 AM EST [place] [phone] Molly Cui APRN [facility] [place] [address] 04/28/2024 2:00 PM EST Office [place] [address] Molly Cui APRN [facility] [place] [address] documented as of this encounter Visit Diagnoses Not on filedocumented in this encounter Care Teams Certified Prosthetist Relationship Specialty Start Date End Date Salome Mcarthur APRN [address] [place] [address] PCP - General Family Medicine 05/30/15 12/11/23 documented as of this encounter
--- OUTSIDE RECORDS SUMMARY | 2024-04-20 15:54 | XMS_ITS | Encounter Summary ---
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 Pharmacy [facility] Decision pending documented in this encounter Plan of Treatment Upcoming Encounters Date Type Department Care Team (Late st Contact Info) Description 04/28/2024 11:00 AM EST [place] [address] Molly Cui, [employer]ATE[employer] [facility] [place] [address] 04/28/2024 2:00 PM EST Office [place] [phone] Molly Cui, [facility] [place] [address] documented as of this encounter Visit Diagnoses Not on filedocumented in this encounter Care Teams [employer] Teacher Relationship Specialty Start Date End Date Salome Mcarthur APRN [address] [place] [address] PCP - General Family Medicine 05/30/15 12/11/23 documented as of this encounter
--- OUTSIDE RECORDS SUMMARY | 2024-04-20 15:54 | XMS_ITS | Encounter Summary ---
Author Organization [facility] [place] [address] Care Team Providers Care Testing Shaking Shipping Name Role Phone Salome Mcarthur APRN Primary Care Provider [phone] [phone] Encounter Details Date Type Department Care Team (Latest Contact Info) Description 09/10/2018 12:35 PM EDT Laboratory Appointment Lab [address] [place] [address] Hepatic cirrhosis, unspecified hepatic cirrhosis [...] 04/28/2024 11:00 AM [place] [address] Molly Cui [facility] [address] 04/28/2024 2:00 PM EST Office [place] [address] Molly Cui [facility] [place] [address] documented as of this encounter [...] 1:46 PM EDT) Neutrophil % 53.0 % [facility] Neutrophil Absolute 4.28 1.70 - 6.10 x10(3)/[facility] Lymph % 36.5 % [facility] Lymphocytes Abs 2.9 0.9 - 3.2 x10(3)/[facility] LABOR[facility]ORY Monocyte % 7.6 % [facility] Monocyte Abs 0.6 0.3 - 0.9 x10(3)/[facility]OR[facility]ORY Eos % 2.0 % [facility] Eosinophils Abs 0.2 0.0 - 0.4 x10(3)/[facility]ORY Basophil % 0.5 % [facility] Baso Absolute 0.0 0.0 - 0.1 x10(3)/[facility] LABORATORY Immature Gran % 0.40 % [facility] Comment: Immature granulocytes(IG's)percentage and absolute count will include metamyelocytes, myelocytes, and promyelocytes. Blood smears from CBCs yielding IG's will be scanned manually for concordance. If this scan disagrees with the automated IG or if promyelocytes are noted, a manual differential will be performed. Immature Gran Absolute 0.03 0.00 - 0.04 x10(3)/mcL [facility] Blood specimen (specimen) 09/10/2018 1:46 PM EDT 09/10/2018 2:00 PM EDT Narrative Resulting Agency Comment Spec In Lab Molly Cui CONTINUOUS IMPROVEMENT FACILITATOR HEMATOLOGY ORDERAB LES [facility] [place] [address] * (ABNORMAL) Hemogram (09/10/2018 1:46 PM EDT) White Blood Cell 8.1 4.0 - 9.5 x10(3)/mc L [facility] Red Blood Cell 4.63 4.00 - 5.21 x10(6)/[facility]ORATORY Hemoglobin 14.6 11.7 - 15.5 gm/dL [facility] Hematocrit 43.3 35.7 - 45.8 % [facility] Mean Cell Volume 93.5 82.6 - 94.[address] [facility] Mean Cell Hemoglobin 31.5 27.1 - 32.[address] [facility] Mean Cell Hemoglobin Concentration 33.7 31.7 - 35.0 gm/dL [facility] Platelet 135(L) 145 - 357 x10(3)/mc L [facility] RDW Standard Deviation 44.0 37.0 - 46.0 [facility] RDW coefficient of variation 12.8 11.5 - 14.1 % [facility] Mean Platelet Volume 11.3 7.6 - 12.[address] [facility] NRBC% auto 0.0 % [facility] NRBC Absolute 0.000 0.000 - 0.000 x10(3)/ L [facility] Blood specimen (specimen) 09/10/2018 1:46 PM EDT 09/10/2018 2:00 PM EDT Narrative Resulting Agency Comment Spec In Lab Mollyjuan a Cui LOR[facility]O HEMATOLOGY ORDERAB LES [facility] [place] [address] * (ABNORMAL) Comprehensive metabolic panel (non-fasting) (09/10/2018 1:46 PM EDT) Glucose 125 65 - 199 mg/dL [facility] Comment:Diabetes: >=200 mg/d L plus symptoms Blood Urea Nitrogen 18 8 - 18 mg/dL [facility] Creatinine 0.75 0.70 - 1.20 mg/dL [facility] Sodium 139 135 - 145 mmol/L [facility] Potassium 3.9 3.5 - 5.0 mmol/L [facility] Comment: Please note: ??Patients with WBC >100,000 may have falsely elevated Potassium levels. ??For accurate Potassium quantification in these patients send serum separator tube (gold top) for subsequent determinations. ??Contact the Clinical Chemistry Laboratory if there are any questions. Chloride 99 98 - 107 mmol/L [facility] Carbon Dioxide 26 22 - 31 mmol/L [facility] Anion Gap 14 5 - 15 mmol/L [facility] Calcium 10.5 8.5 - 10.5 mg/dL [facility] Protein, Total 7.9 6.1 - 8.0 gm/dL [facility] Albumin 4.7 3.2 - 5.2 gm/dL [facility] Aspartate Aminotransferase 39(H) 0 - 30 unit/L [facility] Alanine Aminotransferase 41(H) 0 - 30 unit/L [facility] Alkaline Phosphatase 69 40 - 104 unit/L [facility] Bilirubin, Total 0.7 0.2 - 1.3 mg/dL [facility] Est Glomerular Filtration Rate 77 >=60 mL/min/1. 73 m?? [facility] Comment: The eGFR was calculated using the CKD-EPI equation. As with all creatinine based estimates of kidney function, eGFR values calculated with the CKD-EPI equation are not accurate in patients with acute kidney failure, extremes of body mass or the acutely ill. http://[employer]/[facility] eGFR 89 >=60 mL/min/1. 73 m?? [facility] Comment: The eGFR was calculated using the CKD-EPI equation. As with all creatinine based estimates of kidney function, eGFR values calculated with the CKD-EPI equation are not accurate in patients with acute kidney failure, extremes of body mass or the acutely ill. http://[employer]/[facility] Blood specimen (specimen) 09/10/2018 1:46 PM EDT 09/10/2018 2:00 PM EDT Narrative Resulting Agency Comment Spec In Lab Molly Cui APRN CHEMISTRY ORDERABL ES Performing Organization Address [facility] de Phone Number [facility] [place] [address] * (ABNORMAL) Prothrombin Time (09/10/2018 1:46 PM EDT) Prothrombin Time 12.8(H) 9.4 - 12.[address] [facility] International Normalization Ratio 1.1 [facility] Comment: An INR [...] Organization Address [facility]/ZIP Co [place] [address] documented in this encounter Visit Diagnoses Diagnosis Hepatic cirrhosis, unspecified hepatic cirrhosis type, unspecified whether ascites present documented in this encounter Care Teams Testing Shaking Shipping Relationship Specialty Start Date End Date Salome Mcarthur APRN [address] [place] [address] PCP - General Family Medicine 05/30/15 12/11/23 documented as of this encounter
--- OUTSIDE RECORDS SUMMARY | 2024-04-20 15:54 | XMS_ITS | Encounter Summary ---
Author Organization [facility] Address [facility] [place] [address] Care Team Providers Care Cost Estimating Manager Name Role Phone Salome Mcarthur APRN Primary Care Provider [phone] Reason for Visit * Reason Onset Date Comments Other 05/30/2018 Encounter Details Date Type Department Care Team (Late st Contact Info) Description 05/30/2018 Telephone [place] [phone] Nelsy Menezes Other Social History Tobacco Use [...] detailed message? Yes Preferred method of communication: [phone] documented in this encounter Plan of Treatment Upcoming Encounters Date Type Department Care Team (Late st Contact Info) Description 04/28/2024 11:00 AM EST Appointment [place] [phone] Molly Cui, [facility] [place] [address] 04/28/2024 2:00 PM EST Office [place] [phone] Molly Cui, [facility] [place] [address] documented as of this encounter Visit Diagnoses Not on filedocumented in this encounter Care Teams Cost Estimating Manager Relationship Specialty Start Date End Date Salome Mcarthur APRN [address] [place] [address] PCP - General Family Medicine 05/30/15 12/11/23 documented as of this encounter
--- OUTSIDE RECORDS SUMMARY | 2024-04-20 15:54 | XMS_ITS | Encounter Summary ---
Author Organization [facility] [place] [address] Care Team Providers Care Rivet Driver Name Role Phone Salome Mcarthur APRN Primary Care Provider [phone] Encounter Details Date Type Department Care Team (Late st Contact Info) Description 08/26/2017 Telephone [place] [address] [facility] [place] [address] Social History Tobacco Use Types Packs/Day Years [...] do MRI to further evaluate. Will ask bench worker binding to reach out to patient to schedule MRI. Patient understands, answered all questions. MOLLY WALLIS APRN documented in this encounter Plan of Treatment Upcoming Encounters Date Type Department Care Team (Late st Contact Info) Description 04/28/2024 11:00 AM EST Appointment [place] [address] Molly Wallis, [employer] PARER [facility] [place] [address] 04/28/2024 2:00 PM EST Office Visit [place] [address] Molly Wallis, LORETO [facility] [place] [address] documented as of this encounter Visit Diagnoses Not on filedocumented in this encounter Care Teams Rivet Driver Relationship Specialty Start Date End Date Salome Mcarthur APRN [address] [place] [address] PCP - General Family Medicine 05/30/15 12/11/23 documented as of this encounter
--- OUTSIDE RECORDS SUMMARY | 2024-04-20 15:54 | XMS_ITS | Encounter Summary ---
[place] [address] Care Team Providers Care Clinical Nutritionist Name Role Phone Salome Mcarthur APRN Primary Care Provider [phone] Reason for Referral * Diagnostic Test (Routine) - Closed Specialty Diagnoses / Procedures Referred By Contac t Referred To Contact Radiology Diagnoses Hepatic cirrhosis, unspecified hepatic cirrhosis type, unspecified whether ascites present Procedures MRI Abdomen wwo Contrast (Generic) Molly Cui APRN [facility] [place] [address] [place] [address] Referral ID Status Reason Start Date Expiration Date V isits Requested Visits Authorized [id number] Closed Specialty Service Requested 07/14/2018 07/14/2019 1 1 Reason for Visit * Diagnostic Test (Routine) - Closed Specialty Diagnoses / Procedures Referred By Contac t Referred To Contact Radiology Diagnoses Hepatic cirrhosis, unspecified hepatic cirrhosis type, unspecified whether ascites present Procedures MRI Abdomen wwo Contrast (Generic) Molly Cui APRN [facility] [place] [address] [place] [address] Referral ID Status Reason Start Date Expiration Date V isits Requested Visits Authorized [id number] Closed Specialty Service Requested 07/14/2018 07/14/2019 1 1 Encounter Details Date Type Department Care Team (Latest Contact Info) Description 09/10/2018 11:50 AM EDT - 09/10/2018 11:59 PM EDT Hospital Encounter MRI at [facility] [place] [address] Molly Cui APRN [facility] [place] [address] Hepatic cirrhosis, unspecified hepatic cirrhosis type, unspecified [...] protection 06/06/2009 fluticasone propionate (FLONASE) 50 mcg/actuation [place], Suspension 1 spray daily. pramipexole (MIRAPEX) 0.125 [...] 04/28/2024 11:00 AM [place] [phone] Molly Cui, [facility] [place] [address] 04/28/2024 2:00 PM EST Office [place] [phone] Molly Cui [facility] [place] [address] documented as of this encounter Procedures Procedure [...] the number below. ? Electronically signed by: JOSE Beckford [facility] ([phone]), at 09/10/2018 3:09 PM Narrative 09/10/2018 3:09 [...] mLs documented in this encounter Care Teams Clinical Nutritionist Relationship Specialty Start Date End Date Salome Mcarthur APRN [address] [place] [address] PCP - General Family Medicine 05/30/15 12/11/23 documented as of this encounter
--- OUTSIDE RECORDS SUMMARY | 2024-04-20 15:54 | XMS_ITS | Encounter Summary ---
[place] [address] Care Team Providers Care Pad Machine Feeder Name Role Phone Salome Mcarthur APRN Primary Care Provider [phone] Encounter Details Date Type Department Care Team (Late st Contact Info) Description 09/04/2017 Orders [place] [phone] Evy Howard Social History Tobacco Use Types [...] 04/28/2024 11:00 AM [place] [phone] Molly Cui [facility] [place] [address] 04/28/2024 2:00 PM EST Office [place] [address] Molly Cui [facility] [place] [address] documented as of this encounter Visit Diagnoses Not on filedocumented in this encounter Care Teams Pad Machine Feeder Relationship Specialty Start Date End Date Salome Mcarthur, LORETO [address] [place] [address] PCP - General Family Medicine 05/30/15 12/11/23 documented as of this encounter
--- OUTSIDE RECORDS SUMMARY | 2024-04-20 15:54 | XMS_ITS | Encounter Summary ---
Author Organization [facility] [place] [address] Care Team Providers Care Director Of Channel Marketing Name Role Phone Salome Mcarthur APRN Primary Care Provider [phone] Reason for Referral * Diagnostic Test (Routine) - Closed Specialty Diagnoses / Procedures Referred By Contac t Referred To Contact Radiology Diagnoses Hepatic cirrhosis, unspecified hepatic cirrhosis type, unspecified whether ascites present Procedures MRI Abdomen wwo Contrast (Generic) Molly Cui APRN [facility] [place] [address] [place] [address] Referral ID Status Reason Start Date Expiration Date V isits Requested Visits Authorized [id number] Closed Specialty Service Requested 02/26/2018 02/26/2019 1 1 Encounter Details Date Type Department Care Team (Late st Contact Info) Description 02/26/2018 11:00 AM EST Office [place] [address] Molly Cui APRN [facility] [place] [address] Hepatic cirrhosis, unspecified hepatic cirrhosis [...] mouth as needed. Reported on 08/21/2016 ??? [place]-3 Fatty Acids-Vitamin E (FISH OIL) 1,000 mg [...] Cui APRN Section of Gastroenterology [place] [address] Copy: Salome Mcarthur APRN [address] / [place] [id number] 25 of this 30 minute visit in face to face discussion regarding disease, prognosis and treatment documented in this encounter Plan of Treatment Upcoming Encounters Date Type Department Care Team (Late st Contact Info) Description 04/28/2024 11:00 AM EST Appoint[place] [address] Molly Cui, [facility] [place] [address] 04/28/2024 2:00 PM EST Office Visit Gastroenterology at [facility] [place] [address] Molly Cui, RUBBING BED OPERATOR [facility] [place] [address] documented as of this encounter Results * [...] demonstrate a somewhat reticular pattern of high H0jhziem intensity most pronounced in the inferior right [...] made given differences in technique. Recommend reference [facility] CT report for management guidelines. 4. [...] in this encounter Care Teams Director Of Channel Marketing Relationship Specialty Start Date End Date Salome Mcarthur APRN [address] [place] [address] PCP - General Family Medicine 05/30/15 12/11/23 documented as of this encounter
--- OUTSIDE RECORDS SUMMARY | 2024-04-20 15:54 | XMS_ITS | Encounter Summary ---
[place] [address] Care Team Providers Care Beamer Hand Name Role Phone Salome Mcarthur APRN Primary Care Provider [phone] Reason for Visit * Reason Onset Date Comments Results 10/22/2017 Encounter Details Date Type Department Care Team (Late st Contact Info) Description 10/22/2017 Telephone [place] [address] Jacque Gale, RN Results Social History Tobacco [...] results of recent CT- Her contact # [phone]- okay to leave . * Telephone Encounter - Jacque Gale RN - 10/22/2017 3:58 PM EDT Pt calling for results of chest CT performed on 10/18 at [facility]. documented in this encounter Plan of Treatment Upcoming Encounters Date Type Department Care Team (Late st Contact Info) Description 04/28/2024 11:00 AM EST Appointment [place] [address] Molly Cui, [facility] [place] [address] 04/28/2024 2:00 PM EST Office [place] [address] Molly Cui, [facility] [place] [address] documented as of this encounter Visit Diagnoses Not on filedocumented in this encounter Care Teams Beamer Hand Relationship Specialty Start Date End Date Salome Mcarthur APRN [address] [place] [address] PCP - General Family Medicine 05/30/15 12/11/23 documented as of this encounter
--- OUTSIDE RECORDS SUMMARY | 2024-04-20 15:54 | XMS_ITS | Encounter Summary ---
Author Organization [facility] [place] [address] Care Team Providers Care Applied Psychology Teacher Name Role Phone Salome Mcarthur APRN Primary Care Provider [phone] Reason for Visit * Reason Comments Follow-up Encounter Details Date Type Department Care Team (Late st Contact Info) Description 02/22/2017 1:00 PM EST Office [place] [address] Lani Wallis APRN [facility] [place] [address] NAFLD (nonalcoholic fatty liver disease) Social History [...] HEPATOLOGY Follow up Visit Nick Mendieta 1940 DOLL REPAIRER: LANI WALLIS APRN PCP: Salome Mcarthur APRN [...] mouth every 4 hours as needed. ??? [place]-3 Fatty Acids-Vitamin E (FISH OIL) 1,000 mg [...] Wallis APRN Section of Gastroenterology [place] [address] Copy: Salome Mcarthur APRN [address] [place] [address] 25 of this 30 minute visit in face to face discussion regarding disease, prognosis and treatment documented in this encounter Plan of Treatment Upcoming Encounters Date Type Department Care Team (Late st Contact Info) Description 04/28/2024 11:00 AM EST [place] [phone] Lani Walils APRN [facility] [place] [address] 04/28/2024 2:00 PM EST Office [place] [phone] Lani Wallis APRN [facility] [place] [address] documented as of this encounter Results * [...] Lab Lani Wallis APRN HEMATOLOGY ORDERAB LES [facility] [place] [address] * (ABNORMAL) Comprehensive metabolic panel (non-fasting) (08/22/2017 10:25 AM EDT) Pathologist [facility] Glucose 163 65 - 199 mg/dL [facility] [...] or in patients with acute kidney failure. [email or web address]/DHnkdep [email or web address]://[employer]/DHMCnkf Blood specimen (specimen) 08/22/2017 10:25 AM EDT 08/22/2017 10:43 AM EDT Narrative Resulting Agency Comment Spec In Lab Lani Wallis APRN CHEMISTRY ORDERABL ES [facility] [place] [address] * (ABNORMAL) US Abdomen Complete (08/22/2017 9:54 [...] 12:24 pm) PATIENT INFO: ID #: ? [id number] ?: ??[birth year] (77 yrs) Name: ? NICK MENDIETA ?Visit Date: 08/22/2017 09:52 am PERFORMED BY: Performed By: ? Mary HI, ??Lis Attending: ?Jaja GALLO, Sumi Arriaza. Resident: ? Aryan GALLO, Estephanie Nolen Referred By: ?LANI WALLIS Secondary Phy.: ?? LANI WALLIS LOAN EXPEDITOR Location: ? [place] SERVICE(S) PROVIDED: ??UABDC - Abdominal Complete Survey - [id number] ?[id number] INDICATIONS: ??Cirrhosis, survey for hepatoma COMPARISON: RUQ [...] Agency Comment Unexpected Finding Lani Wallis APRN [facility] GEN ORDERAB LES documented in this encounter Visit Diagnoses Diagnosis NAFLD (nonalcoholic fatty liver disease) Other chronic nonalcoholic liver disease NAFLD (nonalcoholic fatty liver disease) Other chronic nonalcoholic liver disease documented in this encounter Care Teams Applied Psychology Teacher Relationship Specialty Start Date End Date Salome Mcarthur APRN [address] [place] [address] PCP - General Family Medicine 05/30/15 12/11/23 documented as of this encounter
--- OUTSIDE RECORDS SUMMARY | 2024-04-20 15:54 | XMS_ITS | Encounter Summary ---
Author Organization [facility] [place] [address] Care Team Providers Care Menagerie Superintendent Name Role Phone Salome Mcarthur APRN Primary Care Provider [phone] Reason for Referral * Diagnostic Test (Routine) - Closed Specialty Diagnoses / Procedures Referred By Contruth t Referred To Contact Radiology Diagnoses Hepatic cirrhosis, unspecified hepatic cirrhosis type, unspecified whether ascites present Procedures MRI Abdomen wwo Contrast (Generic) Molly Cui APRN [facility] [place] [address] [place] [address] Referral ID Status Reason Start Date Expiration Date V isits Requested Visits Authorized [id number] Closed Specialty Service Requested 07/14/2018 07/14/2019 1 1 Encounter Details Date Type Department Care Team (Late st Contact Info) Description 07/14/2018 Orders [place] [address] Molly Cui APRN [facility] [place] [address] Hepatic cirrhosis, unspecified hepatic cirrhosis [...] 04/28/2024 11:00 AM EST [place] [address] Molly Cui, [facility] [address] 04/28/2024 2:00 PM EST Office [place] [address] Molly Cui, [facility] [place] [address] documented as of this encounter Results * (ABNORMAL) Prothrombin Time (09/10/2018 1:46 PM EDT) Pathologist [facility] Prothrombin Time 12.8(H) 9.4 - 12.5 sec [facility] [...] HEMATOLOGY ORDERAB LES [facility] [place] [address] * (ABNORMAL) Comprehensive metabolic panel (non-fasting) (09/10/2018 1:46 PM EDT) Pathologist [facility] Glucose 125 65 - 199 mg/dL [facility] Comment:Diabetes: >=200 mg/d L plus symptoms Blood Urea Nitrogen 18 8 - 18 mg/dL [facility] Creatinine 0.75 0.70 - 1.20 mg/dL [facility] Sodium 139 135 - 145 mmol/L [facility] Potassium 3.9 3.5 - 5.0 mmol/L [facility] Comment: Please note: ??Patients with WBC >100,000 may have falsely elevated Potassium levels. ??For accurate Potassium quantification in these patients send serum separator tube ([facility] top) for subsequent determinations. ??Contact the Clinical Chemistry Laboratory if there are any questions. Chloride 99 98 - 107 mmol/L [facility] Carbon Dioxide 26 22 - 31 mmol/L [facility] Anion Gap 14 5 - 15 mmol/L [facility] Calcium 10.5 8.5 - 10.5 mg/dL [facility] Protein, Total 7.9 6.1 - 8.0 gm/dL [facility] Albumin 4.7 3.2 - 5.2 gm/dL [facility] Aspartate Aminotransferase 39(H) 0 - 30 unit/L [facility] Alanine Aminotransferase 41(H) 0 - 30 unit/L [facility] Alkaline Phosphatase 69 40 - 104 unit/L [facility] Bilirubin, Total 0.7 0.2 - 1.3 mg/dL [facility] Est Glomerular Filtration Rate 77 >=60 mL/min/1. 73 m?? [facility] Comment: The eGFR was calculated using the CKD-EPI equation. As with all creatinine based estimates of kidney function, eGFR values calculated with the CKD-EPI equation are not accurate in patients with acute kidney failure, extremes of body mass or the acutely ill. http://[employer]/DHMCnkf eGFR 89 >=60 mL/min/1. 73 m?? [facility] Comment: The eGFR was calculated using the CKD-EPI equation. As with all creatinine based estimates of kidney function, eGFR values calculated with the CKD-EPI equation are not accurate in patients with acute kidney failure, extremes of body mass or the acutely ill. [email or web address].com/DHMCnkf Blood specimen (specimen) 09/10/2018 1:46 PM EDT 09/10/2018 2:00 PM EDT Narrative Resulting Agency Comment Spec In Lab Molly A Basilia SOFTWARE REVERSE ENGINEER CHEMISTRY ORDERABL ES [facility] [place] [address] * MRI Abdomen wwo Contrast (Generic) (09/10/2018 [...] below. ? Electronically signed by: Susan Callahan [facility] ([phone]), at 09/10/2018 3:09 PM Narrative 09/10/2018 3:09 [...] number below. Electronically signed by: Susan Callahan [facility]([phone]), at 09/10/2018 3:09 PM Molly Cui APRN IMG MRI ORDERABLES documented in this encounter Visit Diagnoses Diagnosis Hepatic cirrhosis, unspecified hepatic cirrhosis type, unspecified whether ascites present Hepatic cirrhosis, unspecified hepatic cirrhosis type, unspecified whether ascites present documented in this encounter Care Teams Menagerie Superintendent Relationship Specialty Start Date End Date Salome Mcarthur APRN [address] [place] [address] PCP - General Family Medicine 05/30/15 12/11/23 documented as of this encounter
--- OUTSIDE RECORDS SUMMARY | 2024-04-20 15:55 | XMS_ITS | Encounter Summary ---
Author Organization [facility] Address [facility] [place] [address] Care Team Providers Care Assembler Name Role Phone Salome Mcarthur APRN Primary Care Provider [phone] Encounter Details Date Type Department Care Team (Latest Contact Info) Description 08/21/2016 10:30 AM EDT - 08/21/2016 11:59 PM EDT Hospital [place] [phone] Beti Hudson MD [facility] [place] [address] NAFLD (nonalcoholic fatty liver disease) Discharge Disposition: [...] 04/28/2024 11:00 AM EST [place] [address] [facility] [place] [address] 04/28/2024 2:00 PM EST Office [place] [address] [facility] [place] [address] documented as of this encounter Procedures Procedure [...] 12:13 pm) PATIENT INFO: ID #: ? [id number] ? : [birth year] (76 yrs) Name: ? MILKA MENDIETA ? Visit Date:08/21/2016 11:21 am PERFORMED BY: Performed By: ? Aysha Forde RDMS Attending: ?Chapo GALLO, Dinh Butler Referred By: ?BETI HUDSON MD Secondary Phy.: ?? MOLLY WALLIS APRN Location: ? [place] SERVICE(S) PROVIDED: ??UABDCVASC - Abdominal Complete Survey with Vascular - 78812, [id number] ??[id number] INDICATIONS: ??Cirrhosis: survey for hepatocellular carcinoma, ??evaluate [...] Final 08/21/2016 12:13pm) PATIENT INFO: ID #: [id number] : [birth year] (76 yrs) Name: MILKA MENDIETA Visit Date:08/21/2016 11:21 am PERFORMED BY: Performed By: Aysha Forde RDMS Attending: Dinh Cowan MD Referred By: BETI HUDSON MD Secondary Phy.: MOLLY WALLIS APRN Location: [place] SERVICE(S) PROVIDED: UABDCVASC - Abdominal Complete Survey with Vascular - 92041, [id number] INDICATIONS: Cirrhosis: survey for hepatocellular carcinoma, evaluate [...] disease documented in this encounter Care Teams Assembler Relationship Specialty Start Date End Date Salome Mcarthur, ROLLER ST[employer] [address] [place] [address] PCP - General Family Medicine 05/30/15 12/11/23 documented as of this encounter
--- OUTSIDE RECORDS SUMMARY | 2024-04-20 15:55 | XMS_ITS | Encounter Summary ---
Author Organization [facility] [place] [address] Care Team Providers Care Reed Press Feeder Name Role Phone Salome Mcarthur APRN Primary Care Provider [phone] Encounter Details Date Type Department Care Team (Latest Contact Info) Description 02/15/2016 2:00 PM EST Laboratory Appointment Lab [address] [place] [address] NAFLD (nonalcoholic fatty liver disease); [...] 04/28/2024 11:00 AM EST [place] [address] Molly Cui [facility] [place] [address] 04/28/2024 2:00 PM EST Office [place] [address] Molly Cui [facility] [place] [address] documented as of this encounter [...] 1:48 PM EST) Neutrophil % 58.4 % [facility] Neutrophil Absolute 3.07 1.70 - 6.10 x10(3)/[facility] Lymph % 30.9 % [facility] Lymphocytes Abs 1.6 0.9 - 3.2 x10(3)/[facility] Monocyte % 8.8 % [facility] Monocyte Abs 0.5 0.3 - 0.9 x10(3)/[facility] Eos % 1.3 % [facility] Eosinophils Abs 0.1 0.0 - 0.4 x10(3)/[facility] Basophil % 0.4 % [facility] Baso Absolute 0.0 0.0 - 0.1 x10(3)/[facility] Immature Gran % 0.20 % [facility] Comment: Immature granulocytes(IG's)percentage and absolute count will include metamyelocytes, myelocytes, and promyelocytes. Blood smears from CBCs yielding IG's will be scanned manually for concordance. If this scan disagrees with the automated IG or if promyelocytes are noted, a manual differential will be performed. Immature Gran Absolute 0.01 0.00 - 0.04 x10(3)/mcL [facility] Blood specimen (specimen) 02/15/2016 1:48 PM EST 02/15/2016 1:52 PM EST Narrative Resulting Agency Comment Spec In Lab Irwin Rock MD HEMATOLOGY ORDERABL ES [facility] [place] [address] * (ABNORMAL) Hemogram (02/15/2016 1:48 PM EST) White Blood Cell 5.2 4.0 - 9.5 x10(3)/mc L [facility] Red Blood Cell 4.56 4.00 - 5.21 x10(6)/mc L [facility] Hemoglobin 13.8 11.7 - [...] Platelet 143(L) 145 - 357 x10(3)/mc L [facility] RDW Standard Deviation 41.3 37.0 - 46.0 fL [facility] RDW coefficient of variation 12.5 11.5 - 14.1 % [facility] Mean Platelet Volume 11.1 7.6 - 12.9 fL [facility] NRBC% auto 0.0 % [facility] NRBC Absolute 0.000 0.000 - 0.000 x10(3)/mc L [facility] Blood specimen (specimen) 02/15/2016 1:48 PM EST 02/15/2016 1:52 PM EST Narrative Resulting Agency Comment Spec In Lab Irwin Rock MD HEMATOLOGY ORDERABL ES Performing Organization Address [facility] de Phone Number [facility] [place] [address] * Prothrombin Time (02/15/2016 1:48 PM EST) [...] Address [facility] de Phone Number [facility] [place] [address] * (ABNORMAL) Comprehensive metabolic panel (non-fasting) (02/15/2016 [...] intervals supplied above were not validated at [facility]. Results from pediatric [...] the following links into your internet browser. [email or web address] Blood specimen (specimen) 02/15/2016 1:48 PM EST 02/15/2016 1:52 PM EST Narrative Resulting Agency Comment Spec In Lab Irwin Rock MD CHEMISTRY ORDERABLE S [facility] [place] [address] documented in this encounter Visit Diagnoses Diagnosis NAFLD (nonalcoholic fatty liver disease) Other chronic nonalcoholic liver disease Cirrhosis of liver without ascites, unspecified hepatic cirrhosis type documented in this encounter Care Teams Reed Press Feeder Relationship Specialty Start Date End Date Salome Mcarthur, SENIOR PROFESSIONAL SERVICES CONSULTANT [address] [place] [address] PCP - General Family Medicine 05/30/15 12/11/23 documented as of this encounter
--- OUTSIDE RECORDS SUMMARY | 2024-04-20 15:55 | XMS_ITS | Encounter Summary ---
Author Organization [facility] Address [facility] [place] [address] Care Team Providers Care Editor Producer Name Role Phone Lizbet Zhang APRN Primary Care Provider + Encounter Details Date Type Department Care Team (Late st Contact Info) Description 07/22/2012 11:00 AM EDT Office Visit Urology at [facility] [place] [address] Urge incontinence (Primary Dx); Mixed incontinence Social [...] 04/28/2024 11:00 AM [place] [address] Molly Cui APRN [facility] [place] [address] 04/28/2024 2:00 PM EST Office [place] [address] Molly Cui APRN [facility] [place] [address] documented as of this encounter Visit Diagnoses Diagnosis Urge incontinence- Primary Mixed incontinence Mixed incontinence urge and stress (male)(female) documented in this encounter Care Teams Editor Producer Relationship Specialty Start Date End Date Lizbet Zhang APRN PCP - General 06/30/12 05/29/15 documented as of this encounter
--- OUTSIDE RECORDS SUMMARY | 2024-04-20 15:55 | XMS_ITS | Encounter Summary ---
[place] [address] Care Team Providers Care Bow Stapler Name Role Phone Salome Mcarthur APRN Primary Care Provider [phone] Reason for Visit * Auth/Cert Specialty Diagnoses / Procedures Referred By Jose t Referred To Contact Diagnoses Fatty (change of) liver, not elsewhere classified Unspecified cirrhosis of liver Cirrhosis, varices screening (IVCS) Procedures PRO UPPER GI ENDOSCOPY, DIAGNOSTIC EGD, UPPER GI ENDOSCOPY Referral ID Status Reason Start Date Expiration Date Visits Re quested Visits Authorized [id number] 1 1 Encounter Details Date Type Department Care Team (Late st Contact Info) Description 07/14/2015 2:15 PM EDT - 07/14/2015 2:45 PM EDT Surgery [place] [address] Leticia Ashraf MD EGD, UPPER GI ENDOSCOPY [...] better as expected. Saturday-Saturday Same Day Endo [phone] Otherwise contact [phone] and ask to speak to the on awake counselor counter person Follow-up care is a palomo part of [...] every 4 hours as needed. FEXOFENADINE HCL (JESSÚ ORAL) Take 100 mg by mouth as [...] signed by: Andrew Newman Gastroenterology Fellow [facility] Pager [phone] 07/14/2015 documented in this encounter Plan of Treatment Upcoming Encounters Date Type Department Care Team (Late st Contact Info) Description 04/28/2024 11:00 AM EST [place] [address] Molly Cui [facility] [place] [address] 04/28/2024 2:00 PM EST Office [place] [phone] Molly Cui [facility] [place] [address] documented as of this encounter Procedures Procedure [...] Report (07/14/2015 3:04 PM EDT) Final Diagnosis [id number] ? Location: 4T; EA01; A The signing [...] sing: (T1) ??pps 07/18/2015 5:04 PM EDT [facility] GI Biopsy 07/14/2015 3:04 PM EDT 07/14/2015 3:04 PM EDT GI Biopsy 07/14/2015 3:04 PM EDT 07/14/2015 3:04 PM EDT Leticia Ashraf MD PATHOLOGY/CYTOLOGY O CORAL Performing Organization Address [facility] [place] [address] * Specimen to Pathology (surgical or derm) (07/14/2015 3:04 PM EDT) AP Specimen 07/14/2015 3:04 PM EDT 07/14/2015 3:04 PM EDT Narrative [facility] - 07/14/2015 3:04 PM EDT Specimen requisition ordered. ??Separate Pathology report to follow Leticia Ashraf MD PATHOLOGY/CYTOLOGY O CORAL Performing Organization Address [facility] Co de Phone Number [facility] [place] [address] * Specimen to Pathology (surgical or derm) (07/14/2015 3:04 PM EDT) AP Specimen 07/14/2015 3:04 PM EDT 07/14/2015 3:04 PM EDT Narrative [facility] - 07/14/2015 3:04 PM EDT Specimen requisition ordered. ??Separate Pathology report to follow Leticia Ashraf MD PATHOLOGY/CYTOLOGY O CORAL [facility] [place] [address] * POCT Fingerstick Glucose (07/14/2015 2:32 PM EDT) Glucose, POC 101 60 - 199 mg/dl 07/14/2015 2:32 PM EDT Leticia Ashraf MD POINT OF CARE TEST O CORAL * POCT Glucose (07/14/2015 2:29 PM EDT) Glucose, POC 101 65 - 199 mg/dL [facility] Comment: Supplemental ranges: <140 mg/dL before meals <180 mg/dL all other times of the day Blood specimen (specimen) 07/14/2015 2:29 PM EDT 07/14/2015 2:29 PM EDT Leticia Ashraf MD POINT OF CARE TEST O CORAL [facility] [place] [address] * UPPER GI ENDOSCOPY (07/14/2015 2:20 PM EDT) UPPER GI ENDOSCOPY [facility] Endoscopy Patient Name: Milka Corbett ? Procedure Date: 07/14/2015 2:20 PM ? Date of : 1940 ? Age: 75 ? Order #: [id number] ? Procedure: ? Upper GI endoscopy Indications: [...] PROVATION 07/14/2015 2:20 PM EDT Salome Mcarthur BLOW PIT OPERATOR GENERAL SURGICAL OR DERABLES PROVATION documented in [...] time) documented in this encounter Care Teams Bow Stapler Relationship Specialty Start Date End Date Salome Mcarthur APRN [address] [place] [address] PCP - General Family Medicine 05/30/15 12/11/23 documented as of this encounter
--- OUTSIDE RECORDS SUMMARY | 2024-04-20 15:55 | XMS_ITS | Encounter Summary ---
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 Social History [...] 04/28/2024 11:00 AM EST [place] [address] Molly Cui [facility] [place] [address] 04/28/2024 2:00 PM EST Office [place] [address] Molly Cui [facility] [place] [address] documented as of this encounter Visit Diagnoses Diagnosis 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
--- OUTSIDE RECORDS SUMMARY | 2024-04-20 15:55 | XMS_ITS | Encounter Summary ---
Author Organization [facility] Address [facility] [place] [address] Care Team Providers Care Grocery Store Manager Name Role Phone Lizbet Galindo APRN Primary Care Provider + Encounter Details Date Type Department Care Team (Late st Contact Info) Description 10/22/2012 1:45 PM EDT [place] [phone] Sandra Beltrán MD [facility] [place] [address] Mixed incontinence (Primary Dx) Discharge Disposition: Home [...] am and minimal at night. 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 HPI [...] 04/28/2024 11:00 AM [place] [address] Molly Cui [facility] [place] [address] 04/28/2024 2:00 PM EST Office [place] [address] Molly Cui [facility] [place] [address] documented as of this encounter Visit Diagnoses Diagnosis Mixed incontinence- Primary Mixed incontinence urge and stress (male)(female) documented in this encounter Care Teams Grocery Store Manager Relationship Specialty Start Date End Date Lizbet Galindo APRN PCP - General 06/30/12 05/29/15 documented as of this encounter
--- OUTSIDE RECORDS SUMMARY | 2024-04-20 15:55 | XMS_ITS | Encounter Summary ---
Author Organization [facility] Address [facility] [place] [address] Care Team Providers Care Integration Software Developer Name Role Phone Lizbet Galindo APRN Primary Care Provider + Encounter Details Date Type Department Care Team (Late st Contact Info) Description 07/22/2012 10:15 AM EDT [place] [phone] Sandra Beltrán MD [facility] [place] [address] Mixed incontinence (Primary Dx) Discharge Disposition: Home [...] of Systems: General Health: Good. - diabetes NURSE RECRUITER - migrane headaches, no loss of consciousness. [...] 1955 ??? Cystocele repair 08/2011 at [facility] ??? Rectocele repair 08/2011 at [facility] ??? Cholecystectomy, laparoscopic 1997 She has never [...] 04/28/2024 11:00 AM EST [place] [address] Molly Cui APRN [facility] [place] [address] 04/28/2024 2:00 PM EST Office [place] [address] Molly Cui APRN [facility] [place] [address] documented as of this encounter Visit Diagnoses Diagnosis Mixed incontinence- Primary Mixed incontinence urge and stress (male)(female) documented in this encounter Care Teams Integration Software Developer Relationship Specialty Start Date End Date Lizbet Galindo APRN PCP - General 06/30/12 05/29/15 documented as of this encounter
--- OUTSIDE RECORDS SUMMARY | 2024-04-20 15:55 | XMS_ITS | Encounter Summary ---
[place] [address] Care Team Providers Care Auto Cleaner Name Role Phone Salome Mcarthur APRN Primary Care Provider [phone] Reason for Visit * Reason Onset Date Comments Advice Only 09/14/2016 Encounter Details Date Type Department Care Team (Late st Contact Info) Description 09/14/2016 Telephone [place] [address] Malika Cantrell production zone leader Only Social History Tobacco Use Types Packs/Day [...] 04/28/2024 11:00 AM EST [place]oint[place] [address] Molly Cui, [facility] [place] [address] 04/28/2024 2:00 PM EST Office [place] [address] Molly Cui, [facility] [place] [address] documented as of this encounter Visit Diagnoses Not on filedocumented in this encounter Care Teams Auto Cleaner Relationship Specialty Start Date End Date Salome Mcarthur COOK LARDER [address] [place] [address] PCP - General Family Medicine 05/30/15 12/11/23 documented as of this encounter
--- OUTSIDE RECORDS SUMMARY | 2024-04-20 15:55 | XMS_ITS | Encounter Summary ---
Author Organization [facility] Address [facility] [place] [address] Care Team Providers Care Financial Planning Consultant Name Role Phone Lizbet Zhang APRN Primary Care Provider + Reason for Visit * Reason Comments Establish Care Vaginal Discharge disc surgery - polyp s Encounter Details Date Type Department Care Team (Late st Contact Info) Description 07/08/2012 3:30 PM EDT Office Visit Obstetrics [place] [phone] Loulou Hamilton MD [facility] DR OBSTETRICS [place] [address] Vaginal lesion (Primary Dx); Hx of bladder [...] EDT REPRODUCTIVE MEDICINE NEW PATIENT CONSULT NOTE [place], [place] Tim Roque MD Professor and Chair Department of STREET LIGHT SERVICER HELPER Loulou Watson MD IVF/ART Pilates Coordinator MD Josee Haas MD Elizabeth Todd, ARNP Chief Complaint: 1.) vaginal polyp SUBJECTIVE: Ms. Mendieta is a 72 y.o. post-menopausal woman who I am asked to consult on at the request of Dr. Boykin, a urologist at [facility] for a discussion with regardsto recently [...] and rectocele repair by a urologist at [facility]. This was done for urinary incontinence which has actually gotten worse over the last 2 years (especially at night) and she is awaiting an appointment with urology here at [facility] for evaluation. Abdominal hysterectomy done in 1986 - for endometriosis. ELECTRICAL SYSTEMS DRAFTER History: LMP 1986. Menarche age 15 q [...] Appendectomy 1956 ??? Cystocele repair 08/2011 at [facility] ??? Rectocele repair 08/2011 at [facility] ??? 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 Family History Problem Relation Age of Onset [...] will call patient with results. Otherwise, benign back line cook exam. If polyp negative for malignancy, no further ELECTRICAL SYSTEMS DRAFTER evaluation or treatment recommended. Dr. Watson was [...] 04/28/2024 11:00 AM EST Appointment [place] [phone] Molly Cui, [facility] [place] [address] 04/28/2024 2:00 PM EST Office Visit [place] [phone] Molly Cui [facility] [place] [address] documented as of this encounter Procedures Procedure Name Priority Date/Time Associated Diagnosis Comments ELECTRICAL SYSTEMS DRAFTER CYTOLOGY FINAL REPORT Routine 07/08/2012 8:27 PM EDT SURGICAL PATHOLOGY REPORT Routine 07/08/2012 5:37 PM EDT documented in this encounter Results * Cable Testers Helper Cytology Final Report (07/08/2012 8:27 PM EDT) Cable Testers Helper Cytology Final Report ? [facility] ? Provider: ?? MOE WATSON, ??Pt. Name: ?? NICK MENDIETA ?LOULOU ? Acc #: ?[id number] ?Pt. ? Col Date: ?? 07/08/2012 ?/Sex: ?1940,(72 years),Female ? Rec Date: ?? 07/08/2012 ?LOC: ?5L ? CYTOPATHOLOGY: ??ELECTRICAL SYSTEMS DRAFTER ? ---Adequacy--- ? Specimen submitted is satisfactory. Vaginal Only. ? ---Cytopathologic Diagnosis--- ? NORMAL ? Negative for Intraepithelial Lesion or Malignancy (NILM). ? 07/09/12 ?? Screened by: ??LMY ??SLA ? 07/10/12 ?? Verified by: ??ABDON Munoz(ASCP), Stefany Rivera - ? Desk Monitor ? ---Clinical Information--- ? HPV Option: ? No HPV Testing ? Preparation: ?Liquid Based Pap ? Specimen Source: ?Vaginal only/LBP/Diagnostic ? LMP: ?Post menopausal, hx bladder cancer, new posterior ? wall bladder lesion ? Hormones?: ?No ? Hysterectomy?: ?Total Hysterectomy ?: ?No ?: ?No ? I.U.D.?: ?No ? Pelvic Radiation: ? No ? Prior ELECTRICAL SYSTEMS DRAFTER Therapy?: ? No ? Hist Abnl Pap/Biopsy?: [...] ??For further ? information please contact the [facility] Laboratory. ? Reference: ??Abkarie CS. ??Intermission Coordinator of Pap Smear Results. ??In: ? Rosy BS, Compa HH, ed. ??The Pap Smear. ??[place]: ??Pino, 2002: ? 71-77. JORY MAYFIELD 07/08/2012 8:27 PM EDT Loulou Watson MD PATHOLOGY/C YTOLOGY ORDERABLES [facility] * Surgical Pathology Report (07/08/2012 5:37 PM EDT) Surgical Pathology Report ? [facility] ? Provider: ?? MOE WATSON, ??Pt. Name: ?? NICK MENDIETA ?LOULOU ? Acc #: ?[id number] ?Pt. ? Col Date: ?? 07/08/2012 ?/Sex: [...] bladder documented in this encounter Care Teams Financial Planning Consultant Relationship Specialty Start Date End Date Lizbet Zhang, LORETO PCP - General 06/30/12 05/29/15 documented as of this encounter
--- OUTSIDE RECORDS SUMMARY | 2024-04-20 15:55 | XMS_ITS | Encounter Summary ---
Author Organization [facility] [place] [address] Care Team Providers Care Packaging Clerk Name Role Phone Salome Mcarthur APRN Primary Care Provider +1 [phone] Reason for Visit * Reason Onset Date Comments Cirrhosis 07/27/2015 Encounter Details Date Type Department Care Team (Late st Contact Info) Description 07/27/2015 Telephone [place] [phone] Jacque Gale RN Cirrhosis Social History Tobacco [...] EST [place] [address] Molly Cui, [facility] [place] [address] 04/28/2024 2:00 PM EST Office [place] [address] Molly Cui, [facility] [place] [address] documented as of this encounter Visit Diagnoses Not on filedocumented in this encounter Care Teams Packaging Clerk Relationship Specialty Start Date End Date Salome Mcarthur APRN [address] [place] [address] PCP - General Family Medicine 05/30/15 12/11/23 documented as of this encounter
--- OUTSIDE RECORDS SUMMARY | 2024-04-20 15:55 | XMS_ITS | Encounter Summary ---
Author Organization [facility] Address [facility] [place] [address] Care Team Providers Care Medical Equipment Technician Name Role Phone Salome Mcarthur APRN Primary Care Provider Encounter Details Date Type Department Care Team (Latest Contact Info) Description 02/15/2016 9:51 AM EST - 02/15/2016 11:59 PM [facility] Hospital [place] [phone] Tremaine Nesbitt MD [facility] [place] [address] NAFLD (nonalcoholic fatty liver disease); Cirrhosis of [...] 04/28/2024 11:00 AM [place] [address] Molly Wallis, [facility] [place] [address] 04/28/2024 2:00 PM EST Office [place] [phone] Molly Wallis, [facility] [place] [address] documented as of this encounter Procedures Procedure [...] 01:34 pm) PATIENT INFO: ID #: ? [id number] ? : [birth year] (75 yrs) Name: ? MILKA MENDIETA ? Visit Date:02/15/2016 10:44 am PERFORMED BY: Performed By: ? Colton Coppola RDMS Attending: ?Jaja GALLO, Sumi Arriaza. Referred By: ?TREMAINE NESBITT MD Secondary Phy.: ?? MOLLY WALLIS APRN Location: ? [place] SERVICE(S) PROVIDED: ??UABDCVASC - Abdominal Complete Survey with Vascular - 30019, 20975 ??[id number] INDICATIONS: ??Cirrhosis: survey for Hepatocellular carcinoma, ??evaluate [...] Final 02/15/2016 01:34pm) PATIENT INFO: ID #: [id number] : [birth year] (75 yrs) Name: MILKA MENDIETA Visit Date:02/15/2016 10:44 am PERFORMED BY: Performed By: Colton Coppola RDMS Attending: Sumi Wilkinson MD Referred By: TREMAINE NESBITT MD Secondary Phy.: MOLLY WALLIS APRN Location: [place] SERVICE(S) PROVIDED: UABDCVASC - Abdominal Complete Survey with Vascular - 60664, 47207 [id number] INDICATIONS: Cirrhosis: survey for Hepatocellular carcinoma, evaluate [...] Report 02/15/2016 01:34 pm [facility]remaine [facility]itt [facility] documented in this encounter Visit Diagnoses Diagnosis NAFLD (nonalcoholic fatty liver disease) Other chronic nonalcoholic liver disease Cirrhosis of liver without ascites, unspecified hepatic cirrhosis type documented in this encounter Care Teams Medical Equipment Technician Relationship Specialty Start Date End Date Salome Mcarthur, JET OPERATOR [address] [place] [address] PCP - General Family Medicine 05/30/15 12/11/23 documented as of this encounter
--- OUTSIDE RECORDS SUMMARY | 2024-04-20 15:55 | XMS_ITS | Encounter Summary ---
Author Organization [facility] [place] [address] Care Team Providers Care Logger Name Role Phone Salome Lopez APRN Primary Care Provider [phone] [phone] Reason for Visit * Reason Comments Follow-up Encounter Details Date Type Department Care Team (Late st Contact Info) Description 07/22/2015 10:00 AM EDT Office [place] [address] Molly Wallis COATER OPERATOR [facility] [address] NAFLD (nonalcoholic fatty liver disease) Social History [...] HEPATOLOGY Follow up Visit Milka Corbett 1940 MANAGER DEVELOPMENTAL: MOLLY WALLIS APRN PCP: SALOME LOPEZ APRN [...] 100 mg by mouth as needed. ??? [place]-3 Fatty Acids-Vitamin E (FISH OIL) 1,000 mg [...] ?found in the gastric antrum. ?Hematin (altered blood/vucekg-thvafj-jolr material) ?was found in the gastric body. [...] Wallis APRN Section of Gastroenterology [place] [address] Copy: SALOME LOPEZ APRN [address] / [place] [address] 25 of this 30 minute visit in face to face discussion regarding disease, prognosis and treatment documented in this encounter Plan of Treatment Upcoming Encounters Date Type Department Care Team (Late st Contact Info) Description 04/28/2024 11:00 AM EST Appointment Ultrasound at [place] [phone] Molly Wallis COATER OPERATOR [facility] [place] [address] 04/28/2024 2:00 PM EST Office [place] [phone] Molly Wallis [facility] [place] [address] documented as of this encounter Visit Diagnoses Diagnosis NAFLD (nonalcoholic fatty liver disease) Other chronic nonalcoholic liver disease documented in this encounter Care Teams Logger Relationship Specialty Start Date End Date Salome Lopez APRN [address] [place] [address] PCP - General Family Medicine 05/30/15 12/11/23 documented as of this encounter
--- OUTSIDE RECORDS SUMMARY | 2024-04-20 15:55 | XMS_ITS | Clinical Summary ---
Author Organization [facility] Address [address] [place] [address] Care Team Providers Care Vp Strategy Name Role Phone Salome Mcarthur OPHTHALMIC MEDICAL ASSISTANT Primary Care Provider [phone] Allergies Active Allergy Reactions Criticality Noted Date [...] Additional Information Patient not taking.Reported on 03/16/2020 [place]-3 Fatty Acids-Vitamin E (FISH OIL) 1,000 mg [...] incontinence 05/18/2011 Hypertensive disorder 03/09/2009 Diabetes mellitus (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 Overview (03/09/2009): H/o - cxr IBS (irritable bowel syndrome) 03/09/2009 Hyperlipidemia 03/09/2009 Rosacea 03/09/2009 Restless legs syndrome 03/09/2009 Migraine 03/09/2009 Encounters Date Type Department Care Team Description 02/02/2024 12:30 EDT Walk-In [facility] [address] [place] [address] Tristan Santa, JEIMY Acute cough (Primary Dx) [...] 01/09/2024, , 09/19/2022, Additional history exists Insurance [facility] MEDIC[facility] Advance Directives For more information, please contact: [phone] * Full Code (Latest Code Status on File) Date Activated Date Inactivated Comments 08/21/2011 16:46 08/22/2011 17:10 Care Teams Vp Strategy Relationship Specialty Start Date End Date Salome Mcarthur, JEIMY [address] [place] [address] PCP - General 03/14/20
--- OUTSIDE RECORDS SUMMARY | 2024-04-20 15:55 | XMS_ITS | Encounter Summary ---
Author Organization [facility] [place] [address] Care Team Providers Care Import Clerk Name Role Phone Salome Mcarthur APRN Primary Care Provider [phone] Encounter Details Date Type Department Care Team (Late st Contact Info) Description 03/05/2016 Telephone [place] [phone] Whitney De Souza Social History Tobacco Use [...] 10:51 AM EST Caller: patient Call for: Mloly Cui APRN Reason for call: patient reports [...] yes Patient's preferred method of communication: phone; [phone] documented in this encounter Plan of Treatment Upcoming Encounters Date Type Department Care Team (Late st Contact Info) Description 04/28/2024 11:00 AM EST [place] [address] Molly Cui, [facility] [place] [address] 04/28/2024 2:00 PM EST Office [place] [address] Molly Cui, [facility] [place] [address] documented as of this encounter Visit Diagnoses Not on filedocumented in this encounter Care Teams Import Clerk Relationship Specialty Start Date End Date Salome Mcarthur APRN [address] [place] [address] PCP - General Family Medicine 05/30/15 12/11/23 documented as of this encounter
--- OUTSIDE RECORDS SUMMARY | 2024-04-20 15:55 | XMS_ITS | Encounter Summary ---
Author Organization [facility] Address [facility] [place] [address] Care Team Providers Care Bindery Machine Operator Name Role Phone Salome Mcarthur APRN Primary Care Provider Encounter Details Date Type Department Care Team (Latest Contact Info) Description 02/22/2017 9:37 AM EST - 02/22/2017 11:59 PM [facility] Hospital [place] [phone] Molly Wallis [facility] [place] [address] NAFLD (nonalcoholic fatty liver disease) Discharge Disposition: [...] 04/28/2024 11:00 AM EST [place] [phone] Molly Wallis [facility] [place] [address] 04/28/2024 2:00 PM EST Office [place] [phone] Molly Wallis, [facility] [place] [address] documented as of this encounter Procedures Procedure [...] 10:44 am) PATIENT INFO: ID #: ? [id number] ?: ??[birth year] (76 yrs) Name: ? MILKA MENDIETA ?Visit Date: 02/22/2017 10:24 am PERFORMED BY: Performed By: ? Macario HI, ??Debbi Attending: ?Betty GALLO, Marilee Ragsdale Referred By: ?MOLLY WALLIS Secondary Phy.: ?? MOLLY WALLIS RESEARCH PHYSICIAN Location: ? [place] SERVICE(S) PROVIDED: ??UABDLIM - Abdominal Limited Survey Single ? 88749 ??Organ or Quadrant - [id number] INDICATIONS: ??Compensated cirrhosis, assess for HCC COMPARISON: [...] 02/22/2017 10:44 am) PATIENT INFO: ID #: [id number] : [birth year] (76 yrs) Name: MILKA MENDIETA Visit Date: 02/22/2017 10:24 am PERFORMED BY: Performed By: Debbi Sorto RDMS Attending: Marilee Hernández MD Referred By: MOLLY WALLIS Secondary Phy.: MOLLY WALLIS APRN Location: [place] SERVICE(S) PROVIDED: UABDLIM - Abdominal Limited Survey Single 93989 Organ or Quadrant - [id number] INDICATIONS: Compensated cirrhosis, assess for HCC COMPARISON: [...] disease documented in this encounter Care Teams Bindery Machine Operator Relationship Specialty Start Date End Date Salome Mcarthur APRN [address] [place] [address] PCP - General Family Medicine 05/30/15 12/11/23 documented as of this encounter
--- OUTSIDE RECORDS SUMMARY | 2024-04-20 15:55 | XMS_ITS | Encounter Summary ---
Author Organization [facility] [place] [address] Care Team Providers Care Patching Machine Operator Name Role Phone Salome Mcarthur APRN Primary Care Provider [phone] Reason for Visit * Reason Comments Follow-up Encounter Details Date Type Department Care Team (Late st Contact Info) Description 02/15/2016 1:00 PM EST Office [place] [address] Lani Wallis APRN [facility] [place] [address] NAFLD (nonalcoholic fatty liver disease) Social History [...] HEPATOLOGY Follow up Visit Nick Mendieta 1940 WELLNESS NURSE: LANI WALLIS APRN PCP: Salome Mcarthur APRN [...] Wallis APRN Section of Gastroenterology [place] [address] Copy: Salome Mcarthur APRN [address] / [place] [address] 25 of this 30 minute visit in face to face discussion regarding disease, prognosis and treatment documented in this encounter Plan of Treatment Upcoming Encounters Date Type Department Care Team (Late st Contact Info) Description 04/28/2024 11:00 AM EST Appoint[place] [address] Lani Wallis, [facility] [place] [address] 04/28/2024 2:00 PM EST Office [place] [address] Lani Wallis, [facility] [place] [address] Scheduled Orders Name Type Priority Associated Diagnoses [...] Prothrombin Time 13.5 12.0 - 15.[address] [facility] [...] [facility] Blood specimen (specimen) 08/21/2016 1:10 PM EDT 08/21/2016 1:25 PM EDT Narrative Resulting Agency Comment Spec In Lab Beti Hudson MD HEMATOLOGY ORDERABLE S [facility] [place] [address] * (ABNORMAL) Comprehensive metabolic panel (non-fasting) (08/21/2016 1:10 PM EDT) Glucose 167 65 - 199 mg/dL [facility] Comment:Diabetes: >=200 mg/d L plus symptoms Blood Urea Nitrogen 18 8 - 18 mg/dL [facility] Creatinine 0.71 0.70 - 1.20 mg/dL [facility] Comment: Please note that the pediatric reference intervals supplied above were not validated at [facility]. Results from pediatric patients should be interpreted in conjunction to the patient's age, height and muscle mass. Sodium 139 135 - 145 mmol/L [facility] Potassium 4.4 3.5 - 5.0 mmol/L [facility] Comment: Please note: ??Patients with WBC >100,000 may have falsely elevated Potassium levels. ??For accurate Potassium quantification in these patients send serum separator tube (gold top) for subsequent determinations. ??Contact the Clinical Chemistry Laboratory if there are any questions. Chloride 95(L) 98 - 107 mmol/L [facility] Carbon Dioxide 28 22 - 31 mmol/L [facility] Anion Gap 16(H) 5 - 15 mmol/L [facility] Calcium 10.7(H) 8.5 - 10.5 mg/dL [facility] Protein, Total 7.7 6.1 - 8.0 gm/dL [facility] Albumin 5.0 3.2 - 5.2 gm/dL [facility] Aspartate Aminotransferase 32(H) 0 - 30 unit/L [facility] Alanine Aminotransferase 38(H) 0 - 30 unit/L [facility] Alkaline Phosphatase 60 40 - 104 unit/L [facility] Bilirubin, Total 0.7 0.2 - 1.3 mg/dL [facility] [...] the following links into your internet browser. http://emotion.me/DHnkdep http://emotion.me/DHMCnkf Blood specimen (specimen) 08/21/2016 1:10 PM EDT 08/21/2016 1:25 PM EDT Narrative Resulting Agency Comment Spec In Lab Beti Hudson MD CHEMISTRY ORDERABLES [facility] [place] [id number] * US Abdomen Complete With Vascular (08/21/2016 [...] 12:13 pm) PATIENT INFO: ID #: ? [id number] ? : [birth year] (76 yrs) Name: ? NICK MENDIETA ? Visit Date:08/21/2016 11:21 am PERFORMED BY: Performed By: ? Aysha Forde RDMS Attending: ?Chapo GALLO, Dinh Butler Referred By: ?BETI HUDSON MD Secondary Phy.: ?? LANI WALLIS APRN Location: ? [place] SERVICE(S) PROVIDED: ??UABDCVASC - Abdominal Complete Survey with Vascular - 68893, 56312 ??[id number] INDICATIONS: ??Cirrhosis: survey for hepatocellular carcinoma, ??evaluate [...] Final 08/21/2016 12:13pm) PATIENT INFO: ID #: [id number] : [birth year] (76 yrs) Name: NICK MENDIETA Visit Date:08/21/2016 11:21 am PERFORMED BY: Performed By: Aysha Forde RDMS Attending: Dinh Cowan MD Referred By: BETI HUDSON MD Secondary Phy.: LANI AWLLIS APRN Location: [place] SERVICE(S) PROVIDED: UABDCVASC - Abdominal Complete Survey with Vascular - 71189, 58151 [id number] INDICATIONS: Cirrhosis: survey for hepatocellular carcinoma, evaluate [...] disease documented in this encounter Care Teams Patching Machine Operator Relationship Specialty Start Date End Date Salome Mcarthur, PROPERTY ECONOMIST [address] [place] [address] PCP - General Family Medicine 05/30/15 12/11/23 documented as of this encounter
--- OUTSIDE RECORDS SUMMARY | 2024-04-20 15:55 | XMS_ITS | Encounter Summary ---
Author Organization [facility] Address [facility] [place] [address] Care Team Providers Care Merchandising Intern Name Role Phone Lizbet Zhang APRN Primary Care Provider + Encounter Details Date Type Department Care Team (Late st Contact Info) Description 07/12/2012 Telephone Obstetrics [place] [phone] Tina Norwood MD Social History Tobacco Use [...] was negative for malignancy. Plan/Instructions: No further technical analyst evaluation needed for this. TINA NORWOOD MD, PGY3 documented in this encounter Plan of Treatment Upcoming Encounters Date Type Department Care Team (Late st Contact Info) Description 04/28/2024 11:00 AM EST [place] [address] Molly Cui, [facility] [place] [address] 04/28/2024 2:00 PM EST Office [place] [phone] Molly Cui, [facility] [place] [address] documented as of this encounter Visit Diagnoses Not on filedocumented in this encounter Care Teams Merchandising Intern Relationship Specialty Start Date End Date Lizbet Zhang APRN PCP - General 06/30/12 05/29/15 documented as of this encounter
--- OUTSIDE RECORDS SUMMARY | 2024-04-20 15:55 | XMS_ITS | Encounter Summary ---
Author Organization [facility] Address [facility] [place] [address] Care Team Providers Care Anglesmith Name Role Phone Salome Mcarthur APRN Primary Care Provider Encounter Details Date Type Department Care Team (Latest Contact Info) Description 07/22/2015 8:04 AM EDT - 07/22/2015 11:59 PM EDT Hospital [place] [phone] Tremaine Nesbitt MD [facility] DR [place] [address] NAFLD (nonalcoholic fatty liver disease); Cirrhosis of [...] 04/28/2024 11:00 AM [place] [address] Molly Cui, [facility] [place] [address] 04/28/2024 2:00 PM EST Office [place] [address] Molly Cui, [facility] [place] [address] documented as of this encounter Procedures Procedure [...] 04:17 pm) Patient Info ID #: ? [id number] ? : [birth year] (75 yrs) Name: ? MILKA MENDIETA ? Visit Date:07/22/2015 09:18 am Performed By Performed By: ? Michelle Major RDMS Attending: ?Juliane GALLO, Meghan Ventura Associate: ?Nila GALLO, Mat Alvarado Referred By: ?TREMAINE NESBITT MD Service(s) Provided ??UABDCVASC - Abdominal Complete Survey with Vascular - 93258, 71173 ??[id number] Indications ??Cirrhosis: survey for hepatocellular carcinoma, ??evaluate [...] Final 08/03/2015 04:17pm) Patient Info ID #: [id number] : [birth year] (75 yrs) Name: MILKA MENDIETA Visit Date:07/22/2015 09:18 am Performed By Performed By: Michelle Major RDMS Attending: Meghan Cardozo MD Associate: Mat Dotson MD Referred By: TREMAINE NESBITT MD Service(s) Provided UABDCVASC - Abdominal Complete Survey with Vascular - 70245, 19006 [id number] Indications Cirrhosis: survey for hepatocellular carcinoma, evaluate [...] type documented in this encounter Care Teams Anglesmith Relationship Specialty Start Date End Date Salome Mcarthur APRN [address] [place] [address] PCP - General Family Medicine 05/30/15 12/11/23 documented as of this encounter
--- OUTSIDE RECORDS SUMMARY | 2024-04-20 15:55 | XMS_ITS | Encounter Summary ---
Author Organization [facility] [place] [address] Care Team Providers Care Oracle Programmer Name Role Phone Salome Mcarthur APRN Primary Care Provider [phone] Reason for Visit * Reason Comments Follow-up Encounter Details Date Type Department Care Team (Late st Contact Info) Description 08/21/2016 3:30 PM EDT Office Visit [place] [address] Molly Wallis QUILT MAKER [facility] [place] [address] NAFLD (nonalcoholic fatty liver disease) Social History [...] HEPATOLOGY Follow up Visit Milka Mendieta 1940 PHYSICIAN OFFICE SPECIALIST: MOLLY WALLIS APRN PCP: Salome Mcarthur APRN [...] mouth every 4 hours as needed. ??? [place]-3 Fatty Acids-Vitamin E (FISH OIL) 1,000 mg [...] Wallis APRN Section of Gastroenter[place] [address] Copy: Salome Mcarthur APRN [facility] [place] [address] 15 of this 30 minute visit in face to face discussion regarding disease, prognosis and treatment documented in this encounter Plan of Treatment Upcoming Encounters Date Type Department Care Team (Late st Contact Info) Description 04/28/2024 11:00 AM EST Appointment [place] [address] Molly Wallis APRN [facility] [place] [address] 04/28/2024 2:00 PM EST Office Visit [place] [address] Molly Wallis QUILT MAKER [facility] [place] [address] Scheduled Orders Name Type Priority Associated Diagnoses [...] 10:44 am) PATIENT INFO: ID #: ? [id number] ?: ??[birth year] (76 yrs) Name: ? MILKA MENDIETA ?Visit Date: 02/22/2017 10:24 am PERFORMED BY: Performed By: ? Macario GEORGEAK, ??Debbi Attending: ?Betty GALLO, Marilee Ragsdale Referred By: ?MOLLY WALLIS Secondary Phy.: ?? MOLLY WALLIS QUILT MAKER Location: ? [facility] SERVICE(S) PROVIDED: ??UABDLIM - Abdominal Limited Survey Single ? [id number] ??Organ or Quadrant - [id number] INDICATIONS: ??Compensated cirrhosis, assess for HCC COMPARISON: [...] 02/22/2017 10:44 am) PATIENT INFO: ID #: [id number] : [birth year] (76 yrs) Name: MILKA MENDIETA Visit Date: 02/22/2017 10:24 am PERFORMED BY: Performed By: Debbi Sorto RDMS Attending: Marilee Hernández MD Referred By: MOLLY WALLIS [facility] Phy.: MOLLY WALLIS APRN Location: [facility] SERVICE(S) PROVIDED: UABDLIM - Abdominal Limited Survey Single 79294 Organ or Quadrant - [id number] INDICATIONS: Compensated cirrhosis, assess for HCC COMPARISON: [...] Report 02/22/2017 10:44 am Molly Wallis APRN [facility] ORDERAB LES documented in this encounter Visit Diagnoses Diagnosis NAFLD (nonalcoholic fatty liver disease) Other chronic nonalcoholic liver disease NAFLD (nonalcoholic fatty liver disease) Other chronic nonalcoholic liver disease documented in this encounter Care Teams Oracle Programmer Relationship Specialty Start Date End Date Salome Mcarthur APRN [address] [address] PCP - General Family Medicine 05/30/15 12/11/23 documented as of this encounter
--- OUTSIDE RECORDS SUMMARY | 2024-04-20 15:55 | XMS_ITS | Encounter Summary ---
Author Organization [facility] [place] [address] Care Team Providers Care Rouge Sifter And Miller Name Role Phone Salome Mcarthur APRN Primary Care Provider [phone] Encounter Details Date Type Department Care Team (Late st Contact Info) Description 05/31/2016 External Results [place] [phone] Molly Cui [facility] [place] [address] Social History Tobacco Use Types Packs/Day Years [...] 04/28/2024 11:00 AM [place] [phone] Molly Cui HEALTH IT SPECIALIST [facility] [place] [address] 04/28/2024 2:00 PM EST Office [place] [phone] Molly Cui [facility] [place] [address] documented as of this encounter Procedures Procedure [...] on filedocumented in this encounter Care Teams Rouge Sifter And Miller Relationship Specialty Start Date End Date Salome Mcarthur, HEALTH IT SPECIALIST [address] [place] [address] PCP - General Family Medicine 05/30/15 12/11/23 documented as of this encounter
--- OUTSIDE RECORDS SUMMARY | 2024-04-20 15:55 | XMS_ITS | Encounter Summary ---
Author Organization [facility] Address [facility] [place] [address] Care Team Providers Care Personal Care Assistant Name Role Phone Salome Mcarthur APRN Primary Care Provider [phone] Reason for Visit * Auth/Cert Specialty Diagnoses / Procedures Referred By Jose t Referred To Contact Diagnoses Fatty (change of) liver, not elsewhere classified Unspecified cirrhosis of liver Cirrhosis, varices screening (IVCS) Procedures PRO UPPER GI ENDOSCOPY, DIAGNOSTIC EGD, UPPER GI ENDOSCOPY Referral ID Status Reason Start Date Expiration Date Visits Re quested Visits Authorized [id number] 1 1 Encounter Details Date Type Department Care Team (Latest Contact Info) Description 07/14/2015 1:02 PM EDT - 07/14/2015 3:58 PM EDT Hospital En[place] [address] Leticia Ashraf MD Discharge Disposition: Home Social [...] better as expected. Saturday-Saturday Same Day Endo [phone] Otherwise contact [phone] and ask to speak to the automobile repair service estimator lifestyle consultant Follow-up care is a palomo part [...] Electronically signed by: Andrew Newman Gastroenterology Fellow [facility] Pager [phone] 07/14/2015 documented in this encounter Plan of Treatment Upcoming Encounters Date Type Department Care Team (Late st Contact Info) Description 04/28/2024 11:00 AM EST [place] [address] Molly Cui [facility] [place] [address] 04/28/2024 2:00 PM EST Office [place] [address] Molly Cui [facility] [place] [address] documented as of this encounter Procedures Procedure [...] Report (07/14/2015 3:04 PM EDT) Final Diagnosis [id number] ? Location: 4T; EA01; A The signing [...] sing: (T1) ??pps 07/18/2015 5:04 PM EDT [facility] GI Biopsy 07/14/2015 3:04 PM EDT 07/14/2015 3:04 PM EDT GI Biopsy 07/14/2015 3:04 PM EDT 07/14/2015 3:04 PM EDT Leticia Ashraf MD PATHOLOGY/CYTOLOGY O CORAL Performing Organization Address [facility] Co de Phone Number [facility] [place] [address] * Specimen to Pathology (surgical or derm) (07/14/2015 3:04 PM EDT) AP Specimen 07/14/2015 3:04 PM EDT 07/14/2015 3:04 PM EDT Narrative [facility] - 07/14/2015 3:04 PM EDT Specimen requisition ordered. ??Separate Pathology report to follow Leticia Ashraf MD PATHOLOGY/CYTOLOGY O CORAL Performing Organization Address [facility] Co de Phone Number [facility] [place] [address] * Specimen to Pathology (surgical or derm) (07/14/2015 3:04 PM EDT) AP Specimen 07/14/2015 3:04 PM EDT 07/14/2015 3:04 PM EDT Narrative [facility] - 07/14/2015 3:04 PM EDT Specimen requisition ordered. ??Separate Pathology report to follow Leticia Ashraf MD PATHOLOGY/CYTOLOGY O COARL Performing Organization Address City/[facility] Co de Phone Number [facility] [place] [address] * POCT Fingerstick Glucose (07/14/2015 2:32 PM EDT) Glucose, POC 101 60 - 199 mg/dl 07/14/2015 2:32 PM EDT Leticia Ashraf MD POINT OF CARE TEST O CORAL * POCT Glucose (07/14/2015 2:29 PM EDT) Glucose, POC 101 65 - 199 mg/dL [facility] Comment: Supplemental ranges: <140 mg/dL before meals <180 mg/dL all other times of the day Blood specimen (specimen) 07/14/2015 2:29 PM EDT 07/14/2015 2:29 PM EDT Leticia Ashraf MD POINT OF CARE TEST O CORAL Performing Organization Address City/[facility] Co de Phone Number [facility] [place] [address] * UPPER GI ENDOSCOPY (07/14/2015 2:20 PM EDT) UPPER GI ENDOSCOPY [facility] Endoscopy Patient Name: Milka Corbett ? Procedure Date: 07/14/2015 2:20 PM ? Date of : 1940 ? Age: 75 ? Order #: [id number] ? Procedure: ? Upper GI endoscopy Indications: [...] PROVATION 07/14/2015 2:20 PM EDT Salome Mcarthur CUBE MACHINE TENDER GENERAL SURGICAL OR DERABLES PROVATION documented [...] time) documented in this encounter Care Teams Personal Care Assistant Relationship Specialty Start Date End Date Salome Mcarthur, LORETO [address] [place] [address] PCP - General Family Medicine 05/30/15 12/11/23 documented as of this encounter
--- OUTSIDE RECORDS SUMMARY | 2024-04-20 15:55 | XMS_ITS | Encounter Summary ---
Author Organization [facility] [place] [address] Care Team Providers Care Mail Reader Name Role Phone Salome Mcarthur APRN Primary Care Provider [phone] Encounter Details Date Type Department Care Team (Latest Contact Info) Description 08/21/2016 12:55 PM EDT Laboratory Appointment Lab [address] [place] [address] NAFLD (nonalcoholic fatty liver disease) [...] 04/28/2024 11:00 AM EST [place] [address] Molly Cui [facility] [place] [address] 04/28/2024 2:00 PM EST Office [place] [address] Molly Cui [facility] [place] [address] documented as of this encounter Procedures Procedure [...] 1:10 PM EDT) Neutrophil % 50.3 % [facility] Neutrophil Absolute 4.49 1.70 - 6.10 x10(3)/mc L [facility] Lymph % 39.2 % [facility] Lymphocytes Abs 3.5(H) 0.9 - 3.2 x10(3)/mc L [facility] Monocyte % 8.0 % [facility] Monocyte Abs 0.7 0.3 - 0.9 x10(3)/mc L [facility] Eos % 1.5 % [facility] Eosinophils Abs 0.1 0.0 - 0.4 x10(3)/mc L [facility] Basophil % 0.8 % [facility] Baso Absolute 0.1 0.0 - 0.1 x10(3)/mc L [facility] Immature Gran % 0.20 % [facility] Comment: Immature granulocytes(IG's)percentage and absolute count will include metamyelocytes, myelocytes, and promyelocytes. Blood smears from CBCs yielding IG's will be scanned manually for concordance. If this scan disagrees with the automated IG or if promyelocytes are noted, a manual differential will be performed. Immature Gran Absolute 0.02 0.00 - 0.04 x10(3)/mc L [facility] Blood specimen (specimen) 08/21/2016 1:10 PM EDT 08/21/2016 1:25 PM EDT Narrative Resulting Agency Comment Spec In Lab Beti Laureano MD HEMATOLOGY ORDERABLE S [facility] [place] [address] * Hemogram (08/21/2016 1:10 PM EDT) White Blood Cell 8.9 4.0 - 9.5 x10(3)/[facility] Red Blood Cell 4.85 4.00 - 5.21 x10(6)/[facility] Hemoglobin 15.2 11.7 - 15.5 gm/dL [facility] Hematocrit 43.8 35.7 - 45.8 % [facility] Mean Cell Volume 90.3 82.6 - 94.4 fL [facility] Mean Cell Hemoglobin 31.3 27.1 - 32.0 pg [facility] Mean Cell Hemoglobin Concentration 34.7 31.7 - 35.0 gm/dL [facility] Platelet 162 145 - 357 x10(3)/[facility] RDW Standard Deviation 40.9 37.0 - 46.0 [facility] RDW coefficient of variation 12.5 11.5 - 14.1 % [facility] Mean Platelet Volume 11.6 7.6 - 12.9 [facility] NRBC% auto 0.0 % [facility] NRBC Absolute 0.000 0.000 - 0.000 x10(3)/[facility] Blood specimen (specimen) 08/21/2016 1:10 PM EDT 08/21/2016 1:25 PM EDT Narrative Resulting Agency Comment Spec In Lab Beti Laureano MD HEMATOLOGY ORDERABLE S Performing Organization Address [facility] Co de Phone Number [facility] [place] [address] * Prothrombin Time (08/21/2016 1:10 PM EDT) Prothrombin Time 13.5 12.0 - 15.0 sec [facility] [...] [facility] Blood specimen (specimen) 08/21/2016 1:10 PM EDT 08/21/2016 1:25 PM EDT Narrative Resulting Agency Comment Spec In Lab Beti Laureano MD HEMATOLOGY ORDERABLE S Performing Organization Address [facility] Co de Phone Number [facility] [place] [address] * (ABNORMAL) Comprehensive metabolic panel (non-fasting) (08/21/2016 1:10 PM EDT) Pathologist [facility] Glucose 167 65 - 199 mg/dL [facility] Comment:Diabetes: >=200 mg/d L plus symptoms Blood Urea Nitrogen 18 8 - 18 mg/dL [facility] Creatinine 0.71 0.70 - 1.20 mg/dL [facility] Comment: Please note that the pediatric reference intervals supplied above were not validated at [facility]. Results from pediatric patients should be interpreted in conjunction to the patient's age, height and muscle mass. Sodium 139 135 - 145 mmol/L [facility] Potassium 4.4 3.5 - 5.0 mmol/L [facility] Comment: Please note: ??Patients with WBC >100,000 may have falsely elevated Potassium levels. ??For accurate Potassium quantification in these patients send serum separator tube (gold top) for subsequent determinations. ??Contact the Clinical Chemistry Laboratory if there are any questions. Chloride 95(L) 98 - 107 mmol/L [facility] Carbon Dioxide 28 22 - 31 mmol/L [facility] Anion Gap 16(H) 5 - 15 mmol/L [facility] Calcium 10.7(H) 8.5 - 10.5 mg/dL [facility] Protein, Total 7.7 6.1 - 8.0 gm/dL [facility] Albumin 5.0 3.2 - 5.2 gm/dL [facility] Aspartate Aminotransferase 32(H) 0 - 30 unit/L [facility] Alanine Aminotransferase 38(H) 0 - 30 unit/L [facility] Alkaline Phosphatase 60 40 - 104 unit/L [facility] Bilirubin, Total 0.7 0.2 - 1.3 mg/dL [facility] [...] the following links into your internet browser. [email or web address] Blood specimen (specimen) 08/21/2016 1:10 PM EDT 08/21/2016 1:25 PM EDT Narrative Resulting Agency Comment Spec In Lab Beti Laureano MD CHEMISTRY ORDERABLES [facility] [place] [address] documented in this encounter Visit Diagnoses Diagnosis NAFLD (nonalcoholic fatty liver disease) Other chronic nonalcoholic liver disease documented in this encounter Care Teams Mail Reader Relationship Specialty Start Date End Date Salome Mcarthur APRN [address] [place] [address] PCP - General Family Medicine 05/30/15 12/11/23 documented as of this encounter
--- OUTSIDE RECORDS SUMMARY | 2024-04-20 15:55 | XMS_ITS | Encounter Summary ---
[facility] Organization [facility] [place] [address] Care Team Providers Care Filter Press Tender Name Role Phone Salome Lopez APRN Primary Care Provider [phone] Reason for Visit * Reason Comments GI Problem * Consultation (Routine) - Closed Specialty Diagnoses / Procedures Referred By Jose bermudez Referred To Contact Gastroenterology Diagnoses fatty liver disease Salome Lopez APRN [address] [place] [address] [facility] Gastro [address] [place] [address] Referral ID Status Reason Start Date Expiration Date V isits Requested Visits Authorized [id number] Closed Evaluate and Treat [facility] 05/30/2015 05/29/2016 1 1 Encounter Details Date Type Department Care Team (Late st Contact Info) Description 06/28/2015 2:30 PM EDT Office Visit [place] [address] Lani Wallis APRN [facility] [place] [address] NAFLD (nonalcoholic fatty liver disease); Cirrhosis of [...] HEPATOLOGY NEW PATIENT CONSULTATION Nick Mendieta 1940 COSTUMED CHARACTER: LANI WALLIS APRN PCP: SALOME LOPEZ APRN [...] alcohol. Her sister is followed here at [facility] and is thinking about liver transplant. In [...] 100 mg by mouth as needed. ??? [place]-3 Fatty Acids-Vitamin E (FISH OIL) 1,000 mg [...] Vibration Controlled Transient Elastography (VCTE) or Fibroscan [place] Protocol: Patient's identity, procedure and site were [...] Wallis APRN Section of Gastroenterology [place] [address] Copy: SALOME LOPEZ APRN [address] / [place] [address] documented in this encounter Miscellaneous Notes * Addendum Note - Lexis Pineda - 06/28/2015 4:20 PM EDTAddended by: LEXIS PINEDA on: 06/28/2015 04:20 PM Modules accepted: Orders documented in this encounter Plan of Treatment Upcoming Encounters Date Type Department Care Team (Late st Contact Info) Description 04/28/2024 11:00 AM EST Appointment [place] [address] Lani Wallis, [facility] [place] [address] 04/28/2024 2:00 PM EST Office Visit [place] [phone] Lani Wallis, [facility] [place] [address] Scheduled Orders Name Type Priority Associated Diagnoses [...] Prothrombin Time 13.4 12.0 - 15.0 sec [facility] Comment: An INR [...] International Normalization Ratio 1.0 0.9 - 1.1 [facility] Blood specimen (specimen) 02/15/2016 1:48 PM EST 02/15/2016 1:52 PM EST Narrative Resulting Agency Comment Spec In Lab Tremaine Rock MD HEMATOLOGY ORDERABL ES [facility] [place] [address] * (ABNORMAL) Comprehensive metabolic panel (non-fasting) (02/15/2016 1:48 PM EST) Glucose 205(H) 65 - 199 mg/dL [facility] Comment:Diabetes: >=200 mg/d L plus symptoms Blood Urea Nitrogen 15 8 - 18 mg/dL [facility] Creatinine 0.90 0.70 - 1.20 mg/dL [facility] Comment: Please note that the pediatric reference intervals supplied above were not validated at [facility]. Results from pediatric patients should be interpreted in conjunction to the patient's age, height and muscle mass. Sodium 141 135 - 145 mmol/L [facility] Potassium 4.0 3.5 - 5.0 mmol/L [facility] Comment: Please note: ??Patients with WBC >100,000 may have falsely elevated Potassium levels. ??For accurate Potassium quantification in these patients send serum separator tube (gold top) for subsequent determinations. ??Contact the Clinical Chemistry Laboratory if there are any questions. Chloride 98 98 - 107 mmol/L [facility] Carbon Dioxide 29 22 - 31 mmol/L [facility] Anion Gap 14 5 - 15 mmol/L [facility] Calcium 10.5 8.5 - 10.5 mg/dL [facility] Protein, Total 7.1 6.1 - 8.0 gm/dL [facility] Albumin 4.7 3.2 - 5.2 gm/dL [facility] Aspartate Aminotransferase 37(H) 0 - 30 unit/L [facility] Alanine Aminotransferase 31(H) 0 - 30 unit/L [facility] Alkaline Phosphatase 44 40 - 104 unit/L [facility] Bilirubin, Total 0.5 0.2 - 1.3 mg/dL [facility] Bilirubin, Direct 0.2 0.0 - 0.3 mg/dL [facility] Est Glomerular Filtration Rate >60 >=60 [facility] Comment: This estimated GFR [...] the following links into your internet browser. [email or web address] Blood specimen (specimen) 02/15/2016 1:48 PM EST 02/15/2016 1:52 PM EST Narrative Resulting Agency Comment Spec In Lab Tremaine oRck MD CHEMISTRY ORDERABLE S [facility] [place] [address] * US Abdomen Complete With Vascular (02/15/2016 [...] 01:34 pm) PATIENT INFO: ID #: ? [id number] ? : [birth year] (75 yrs) Name: ? NICK MENDIETA ? Visit Date:02/15/2016 10:44 am PERFORMED BY: Performed By: ? Colton Coppola RDMS Attending: ?Jaja GALLO, Sumi Kang Referred By: ?TREMAINE ROCK MD Secondary Phy.: ?? LANI WALLIS APRN Location: ? [place] SERVICE(S) PROVIDED: ??UABDCVASC - Abdominal Complete Survey with Vascular - 31257, 16413 ??[id number] INDICATIONS: ??Cirrhosis: survey for Hepatocellular carcinoma, ??evaluate [...] Final 02/15/2016 01:34pm) PATIENT INFO: ID #: [id number] : [birth year] (75 yrs) Name: NICK MENDIETA Visit Date:02/15/2016 10:44 am PERFORMED BY: Performed By: Colton Coppola RDMS Attending: Sumi Wilkinson MD Referred By: TREMAINE ROCK MD [facility] Phy.: LANI WALLIS APRN Location: [place] SERVICE(S) PROVIDED: UABDCVASC - Abdominal Complete Survey with Vascular - 27799, 97627 [id number] INDICATIONS: Cirrhosis: survey for Hepatocellular carcinoma, evaluate [...] 04:17 pm) Patient Info ID #: ? [id number] ? : [birth year] (75 yrs) Name: ? NICK MENDIETA ? Visit Date:07/22/2015 09:18 am Performed By Performed By: ? Mihcelle Major RDMS Attending: ?Juliane GALLO, Meghan Ventura Associate: ?Mat Dotson MD Referred By: ?TREMAINE ROCK MD Service(s) Provided ??UABDCVASC - Abdominal Complete Survey with Vascular - 67213, 16845 ??[id number] Indications ??Cirrhosis: survey for hepatocellular carcinoma, ??evaluate [...] Final 08/03/2015 04:17pm) Patient Info ID #: [id number] : [birth year] (75 yrs) Name: NICK MENDIETA Visit Date:07/22/2015 09:18 am Performed By Performed By: Michelle Major RDMS Attending: Meghan Cardozo MD Associate: Mat Dotson MD Referred By: TREMAINE ROCK MD Service(s) Provided UABDCVASC - Abdominal Complete Survey with Vascular - 51389, 07759 [id number] Indications Cirrhosis: survey for hepatocellular carcinoma, evaluate [...] 4:22 PM EDT) Neutrophil % 48.9 % [facility] Neutrophil Absolute 4.02 1.50 - 6.30 x10(3)/[facility] Lymph % 43.3 % [facility] Lymphocytes Abs 3.6 1.0 - 3.6 x10(3)/[facility] Monocyte % 6.3 % [facility] Monocyte Abs 0.5 0.2 - 1.0 x10(3)/[facility] Eos % 1.1 % [facility] Eosinophils Abs 0.1 0.0 - 0.5 x10(3)/[facility] Basophil % 0.2 % [facility] Baso Absolute 0.0 0.0 - 0.2 x10(3)/[facility] Immature Gran % 0.20 % [facility] Comment: Immature granulocytes(IG's)percentage and absolute count will include metamyelocytes, myelocytes, and promyelocytes. Blood smears from CBCs yielding IG's will be scanned manually for concordance. If this scan disagrees with the automated IG or if promyelocytes are noted, a manual differential will be performed. Immature Gran Absolute 0.02 0.00 - 0.05 x10(3)/[facility] Blood specimen (specimen) 06/28/2015 4:22 PM EDT 06/28/2015 4:24 PM EDT Narrative Resulting Agency Comment Spec In Lab Tremaine Rock MD HEMATOLOGY ORDERABL ES [facility] [place] [address] * Hemogram (06/28/2015 4:22 PM EDT) White Blood Cell 8.2 4.0 - 10.0 x10(3)/[facility] Red Blood Cell 4.57 3.93 - 5.22 x10(6)/[facility] Hemoglobin 14.4 11.2 - 15.7 gm/dL [facility] Hematocrit 42.0 34.0 - 45.0 % [facility] Mean Cell Volume 91.9 79.0 - 94.0 fL [facility] Mean Cell Hemoglobin 31.5 26.6 - 32.2 pg [facility] Mean Cell Hemoglobin Concentration 34.3 32.0 - 36.5 gm/dL [facility] Platelet 168 145 - 370 x10(3)/[facility] RDW Standard Deviation 42.1 35.0 - 46.0 fL [facility] RDW coefficient of variation 12.5 10.9 - 14.4 % [facility] Mean Platelet Volume 11.6 9.0 - 12.0 fL [facility] Blood specimen (specimen) 06/28/2015 4:22 PM EDT 06/28/2015 4:24 PM EDT Narrative Resulting Agency Comment Spec In Lab Tremaine Rock MD HEMATOLOGY ORDERABL ES [facility] [place] [address] * Hepatitis B Surface Antigen (06/28/2015 4:22 PM EDT) Hepatitis B Surface Antigen Negative Negative [facility] Blood specimen (specimen) 06/28/2015 4:22 PM EDT 06/28/2015 4:25 PM EDT Narrative Resulting Agency Comment Spec In Lab Tremaine Rock MD CHEMISTRY ORDERABLE S Performing Organization Address [facility]/ZIP Co de Phone Number [facility] [place] [address] * Hepatitis C Antibody (06/28/2015 4:22 PM EDT) Hepatitis C Antibody Negative Negative [facility] Blood specimen (specimen) 06/28/2015 4:22 PM EDT 06/28/2015 4:25 PM EDT Narrative Resulting Agency Comment Spec In Lab Tremaine Rock MD CHEMISTRY ORDERABLE S Performing Organization Address [facility] de Phone Number [facility] [place] [address] * Hepatitis B Surface Antibody (06/28/2015 4:22 PM EDT) Hepatitis B Surface Antibody Negative [facility] Comment: Expected Results: Vaccinated: Positive [...] MD CHEMISTRY ORDERABLE S Performing Organization Address [facility] Co de Phone Number [facility] [place] [address] * Hepatitis A Antibody, Total (06/28/2015 4:22 PM EDT) Hepatitis A ANTIBODY, TOTAL Negative Negative [facility] Blood specimen (specimen) 06/28/2015 4:22 PM EDT 06/28/2015 4:25 PM EDT Narrative Resulting Agency Comment Spec In Lab Tremaine Rock MD CHEMISTRY ORDERABLE S [facility] [place] [address] * Hepatitis B Core Antibody, Total (06/28/2015 4:22 PM EDT) Hepatitis B Core Antibody Negative Negative [facility] Blood specimen (specimen) 06/28/2015 4:22 PM EDT 06/28/2015 4:25 PM EDT Narrative Resulting Agency Comment Spec In Lab Tremaine Rock MD CHEMISTRY ORDERABLE S Performing Organization Address City/[facility]/ZIP Co de Phone Number [facility] [place] [address] * Iron and TIBC (06/28/2015 4:22 PM EDT) Iron 101 30 - 150 mcg/dL [facility] TIBC 432 250 - 450 mcg/dL [facility] Iron Saturation 23 20 - 50 % [facility] Blood specimen (specimen) 06/28/2015 4:22 PM EDT 06/28/2015 4:25 PM EDT Narrative Resulting Agency Comment Spec In Lab Tremaine Rock MD CHEMISTRY ORDERABLE S Performing Organization Address City/[facility]/ZIP Co de Phone Number [facility] [place] [address] * Ferritin (06/28/2015 4:22 PM EDT) Ferritin 152 30 - 400 ng/mL [facility] Comment: Pediatric reference ranges not verified at [facility], interpret with caution. Reference ranges for females greater than 50 years of age approach values for men, i.e., 30-400 ng/mL. Blood specimen (specimen) 06/28/2015 4:22 PM EDT 06/28/2015 4:25 PM EDT Narrative Resulting Agency Comment Spec In Lab Tremaine Rock MD CHEMISTRY ORDERABLE S [facility] [place] [address] documented in this encounter Visit Diagnoses Diagnosis [...] type documented in this encounter Care Teams Filter Press Tender Relationship Specialty Start Date End Date Salome Lopez, TRANSLATION DIRECTOR [address] [place] [address] PCP - General Family Medicine 05/30/15 12/11/23 documented as of this encounter
--- OUTSIDE RECORDS SUMMARY | 2024-04-20 15:55 | XMS_ITS | Encounter Summary ---
Author Organization [facility] Address [address] [place] [address] Care Team Providers Care Patent Chemist Name Role Phone Salome Mcarthur BPM SOLUTION ARCHITECT Primary Care Provider [phone] Reason for Visit * Reason Comments Cough Chest Congestion Chest Pain Shortness of Breath Encounter Details Date Type Department Care Team (Late st Contact Info) Description 02/02/2024 12:30 EDT Walk-In [facility] [address] [place] [address] [id number] Tristan Santa, BPM SOLUTION ARCHITECT [address] [facility] [address] [place] [address] Acute cough (Primary Dx) Social [...] be sent through Care Everywhere. * Cough ([place]) documented in this encounter Ordered Prescriptions Prescription [...] Tristan Santa NP - 02/02/2024 1230 EDT [facility] Chief Complaint(s): Cough, Chest Congestion, [...] Cough Persistent from URI this past week [facility] Emile Pittman Other considered diagnosis include: Respiratory:URI/Sinus [...] 12/03/2023 added in this encounter Care Teams Patent Chemist Relationship Specialty Start Date End Date Salome Mcarthur NP [address] [place] [address] PCP - General 03/14/20 documented as of this encounter
--- OUTSIDE RECORDS SUMMARY | 2024-04-20 15:55 | XMS_ITS | Referral Summary ---
Author Organization [facility] Address [address] [place] [address] Care Team Providers Care Sticker Hand Name Role Phone Salome Mcarthur CRUSHER LOADER EQUIPMENT OPERATOR Primary Care Provider [phone] Encounters Date Type Department Care Team Description 02/02/2024 12:30 EDT Walk-In [facility] [address] [place], [place] [id number] Tristan Santa, JEIMY Acute cough (Primary Dx) [...] Additional Information Patient not taking.Reported on 03/16/2020 [place]-3 Fatty Acids-Vitamin E (FISH OIL) 1,000 mg [...] incontinence 05/18/2011 Hypertensive disorder 03/09/2009 Diabetes mellitus ([facility]) 03/09/2009 [place]: positive 03/09/2009 Overview (03/09/2009): H/o [...] Plan of Treatment Not on file Insurance [facility] MEDICARE Advance Directives For more information, please contact: [phone] * Full Code (Latest Code Status on File) Date Activated Date Inactivated Comments 08/21/2011 16:46 08/22/2011 17:10 Care Teams Sticker Hand Relationship Specialty Start Date End Date Salome Mcarthur NP [address] [place] [address] PCP - General 03/14/20
--- OUTSIDE RECORDS SUMMARY | 2024-04-20 15:55 | XMS_ITS | Encounter Summary ---
Author Organization [facility] [address] Care Team Providers Care Parts Runner Name Role Phone Salome Mcarthur APRN Primary Care Provider [phone] Encounter Details Date Type Department Care Team (Late st Contact Info) Description 02/08/2009 [place] [phone] Marvin Lord MD [facility] [place] [address] Social History Tobacco Use Types Packs/Day Years Used Date Smoking Tobacco: Never Assessed Sex and Gender Information Value Date Recorded Sex Assigned at Not on file Gender Identity Not on file Sexual Orientation Not on file documented as of this encounter Plan of Treatment Upcoming Encounters Date Type Department Care Team (Late st Contact Info) Description 04/28/2024 11:00 AM EST [place]oint[place] [phone] Molly Cui [facility] [place] [place] [address] 04/28/2024 2:00 PM EST Office [place] [phone] Molly Cui COPY OPERATOR [facility] [place] [address] documented as of this encounter Procedures Procedure Name Priority Date/Time Associated Diagnosis Comments SURGICAL PATHOLOGY REPORT Routine 02/08/2009 7:28 AM EST documented in this encounter Results * Surgical Pathology Report (02/08/2009 7:28 AM EST) Surgical Pathology Report [id number] ? Location: OPW The signing pathologist has (i) examined the relevant preparation(s) for the specimen(s) and (ii) rendered or confirmed the diagnosis(es). . ?Pathology Surgical Pathology Final Report Clinical Information Specimen Submitted: CONSULTATION CASE A - 4 slides labeled [id number], collection date 2008. B - 6 slides labeled [id number], collection date 01/18/2009. [id number] Report to: Anjel De La Torre MD Department of Pathology [facility] [address] [place] [address] ??[id number] Gross Description [facility]'s pathology slide(s) are reviewed. ??Refer to Diagnosis and Specimen Submitted for specific case information. For the full text of the [facility] report(s) please refer to Non-DH Documentation Pathology in the Clinical Information System (CIS). Microscopic Description Slides reviewed, microscopic description not recorded. Diagnosis CONSULTATION CASE A - Outside slides labeled [id number], collection date 2008: ?1. 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 ?There is no evidence of dysplasia. ?2. ??Urinary bladder, inferior to main tumor, biopsy: ?Urothelial mucosa with chronic inflammation and reactive atypia. ?There is no evidence of dysplasia. B - Outside slides labeled [id number], collection date 01/18/2009: ?1. ??Bladder, left dome, [...] MD PATHOLOGY/CYTOLOGY O RDERADOMINGA Performing Organization Address City/State/[facility] Co de Phone Number [facility] documented in this encounter Visit Diagnoses Not on filedocumented in this encounter Care Teams Parts Runner Relationship Specialty Start Date End Date Salome Mcarthur, COPY OPERATOR [address] [place] [address] PCP - General Family Medicine 05/30/15 12/11/23 documented as of this encounter
--- OUTSIDE RECORDS SUMMARY | 2024-04-20 15:56 | XMS_ITS | Encounter Summary ---
Author Organization [facility] Address [address] [place] [address] Care Team Providers Care Instructor Tap Dancing Name Role Phone Kayleigh Peña Primary Care Provider [phone] Reason for Visit * Reason Comments Other incomplete empyting Encounter Details Date Type Department Care Team (Latest Contact Info) Description 05/17/2011 11:[address] [facility] Pelvic Medicine and Reconstructive Surgery - Medical Office [facility] [address] [place] [address] Tim Molina MD [address] [place] [phone] Female bladder prolapse (Primary Dx); Rectocele; [...] MD - 05/21/2011 0709 EST [facility] [address] [place], [place] [phone] Telephone Toll-Free PROGRESS/FOLLOWUP NOTE - 05/17/2011 HISTORY [...] Molina MD - Tim Molina MD - [facility] Job ID: SM Doc ID: [id number] Ext Doc ID: [id number] cc: TOPHER Mackey MD * Tim Molina [...] mg by mouth daily as needed. ??? [place]-3 Fatty Acids-Vitamin E (FISH OIL) 1,000 mg [...] MD * Tim Molina MD - 05/18/2011 3266 EST Dictated. Past Medical history, past surgical [...] Ketones Neg Neg [facility] Specific [place] 1.010 1.001 - 1.035 [facility] Blood Neg Neg [facility] pH 7.5 4.6 - 8.0 [facility] Protein Neg Neg [facility] Urobilinogen 0.2 0.2 - 1.0 E.U./dl [facility] Nitrite Neg Neg [facility] Leuk Esterase Neg Neg [facility] [employer] principal ID [id number] [facility] Urine specimen (specimen) 05/17/2011 11:35 EST 05/17/2011 11:44 EST Tim Molina MD POINT OF CARE TEST ORDERABL ES Final Result [facility] [address] [place] [address] documented in this encounter Visit Diagnoses Diagnosis Female bladder prolapse- Primary Cystocele, midline Rectocele Mixed incontinence urge and stress Mixed incontinence urge and stress (male)(female) documented in this encounter Care Teams Instructor Tap Dancing Relationship Specialty Start Date End Date Kayleigh Peña PA [address] [place] [address] PCP - General 05/16/11 08/19/11 documented as of this encounter
--- OUTSIDE RECORDS SUMMARY | 2024-04-20 15:56 | XMS_ITS | Encounter Summary ---
Author Organization [facility] Address [address] [place] [address] Care Team Providers Care Evening Sitter Name Role Phone Salome Mcarthur SELF PAY COLLECTOR Primary Care Provider [phone] Encounter Details Date Type Department Care Team (Latest Contact Info) Description 01/19/2022 Plan of Care Documentation [address] [address] Social History Tobacco Use Types Packs/Day Years [...] to 3 visits Therapy Treatment to include: 57618 - Hot Cold Pack, 40020 - Therapeutic Exercise, 43032 - Neuromuscular Re-education, 59320 - Manual Therapy, 48512 - Canalith Repositioning and 69454 - Therapeutic Activity Recommended Consults: None Development [...] on filedocumented in this encounter Care Teams Evening Sitter Relationship Specialty Start Date End Date Salome Mcarthur, SELF PAY COLLECTOR [address] [place] [address] PCP - General 03/14/20 documented as of this encounter
--- OUTSIDE RECORDS SUMMARY | 2024-04-20 15:56 | XMS_ITS | Encounter Summary ---
Author Organization [facility] Address [address] [place] [address] Care Team Providers Care Health Information Coder Name Role Phone Agustin Ramires MD Primary Care Provider [phone] Encounter Details Date Type Department Care Team (Late st Contact Info) Description 08/20/2011 Pre-Procedure Orders Encounter [facility] Pelvic Medicine and Reconstructive Surgery - Medical Office [facility] [address] [place] [address] Tim Molina MD [address] [place] [phone] Social History Tobacco Use Types Packs/Day [...] on filedocumented in this encounter Care Teams Health Information Coder Relationship Specialty Start Date End Date Agustin Ramires MD [address] [place] [address],[facility] [address] [place] [address] PCP - General 08/20/11 02/23/13 documented as of this encounter
--- OUTSIDE RECORDS SUMMARY | 2024-04-20 15:56 | XMS_ITS | Encounter Summary ---
Author Organization [facility] Address [address] [place] [address] Care Team Providers Care Center Medical Director Name Role Phone Salome Mcarthur CONTACT AGENT Primary Care Provider [phone] Encounter Details Date Type Department Care Team (Late st Contact Info) Description 10/27/2020 Lab Requisition [facility] Pathology & Laboratory Medicine - [facility] [address] [place], [place] [id number] Outr Resulting Lab, Provider Social History Tobacco [...] Priority Date/Time Associated Diagnosis Comments ZZCOVID-19 TEST [facility] PCR Today 10/27/2020 10:45 EDT COVID-19 TESTING Routine 10/27/2020 10:4 5 EDT documented in this encounter Results * COVID-19 TEST [facility] PCR (10/27/2020 10:45 EDT) Swab ENTIRE NASOPHARYNX / Unknown 10/27/2020 10:45 EDT 10/28/2020 15:54 EDT us Provider Outr Resulting Lab MICROBIOLOGY - GENER AL ORDERABLES Final Result [facility] [address] [place] [address] * COVID-19 TESTING (10/27/2020 10:45 EDT) COVID-19 rt-PCR Result Negative Negative 10/29/2020 12:56 EDT [facility] Comment: This test has [...] performed using the damaso SARS-CoV-2 assay ([employer] on the Damaso 6800 System Performing Lab Damaso [address] [facility] 10/29/2020 12:56 EDT [facility] Swab 10/27/2020 10:4 5 EDT 10/28/2020 15:54 EDT us Provider Outr Resulting Lab MICROBIOLOGY - GENER AL ORDERABLES Final Result [facility] [address] [place] [address] documented in this encounter Visit Diagnoses Not on filedocumented in this encounter Care Teams Center Medical Director Relationship Specialty Start Date End Date Salome Mcarthur, CONTACT AGENT [address] [place] [address] PCP - General 03/14/20 documented as of this encounter
--- OUTSIDE RECORDS SUMMARY | 2024-04-20 15:56 | XMS_ITS | Encounter Summary ---
Author Organization [facility] Address [address] [place] [address] Care Team Providers Care E Merchant Name Role Phone LeathaLizbet HAND MOLD MAKER Primary Care Provider [phone] Encounter Details Date Type Department Care Team (Late st Contact Info) Description 10/17/2017 Historical Results Only [facility] Radiology Results [address] [place] [address] Molly Cui, LORETO [address] [place] [address] [place] [address] Social History Tobacco Use Types Packs/Day Years [...] NODULE NOTED ON ? MRI 09[place]21[place]17 [place] [facility] [place] HX OF SMOKING ? CHEST WITH CONTRAST ??10/17/2017 11:41 AM ? Clinical History/Comments: ? R91.1 INCIDENTAL NOTE OF LUNG NODULE NOTED ON, MRI 09/21/17 @ [facility] [place]. NO ? HX OF SMOKING ? Technique: [...] CC: ? Transcribed Date/Time: 10/17/2017 (1419) ? Optoelectronic Technician: ? Printed Date/Time: 09/26/2018 (3718) ? PAGE 2 ? Signed Report ? Procedure Note Carl Ortega MD - 02/12/2019 EXAM: CAT SCAN/CHEST WITH CONTRAST EX. D/ (1141) CLINICAL INFORMATION: R91.1 INCIDENTAL NOTE OF LUNG NODULE NOTED ON MRI 09/21/17 @ [facility] [place]. NO HX OF SMOKING CHEST WITH CONTRAST 10/17/2017 11:41 AM Clinical History/Comments: R91.1 INCIDENTAL NOTE OF LUNG NODULE NOTED ON, MRI 09/21/17 @ [facility] [place]NO HX OF SMOKING Technique: Contiguous axial CT [...] Carl Ortega MD CC: Transcribed Date/Time: 10/17/2017 (0911) Optoelectronic Technician: Printed Date/Time: 09/26/2018 (9774) PAGE 2 Signed Report us Molly Cui VISITOR SERVICES REPRESENTATIVE IMG CT ORDERABLES Final Re sult * (ABNORMAL) COMPLETE BLOOD COUNT WITH DIFFERENTIAL (AUTO) (10/17/2017 10:37 EDT) ABSOLUTE NEUTROPHIL COUN - [facility] 3.14 1.7 - 7.0 10e3/ul 10/17/2017 11:09 [facility] BASO # - [facility] 0.02 0.0 - 0.3 10e3/uL 10/17/2017 11:09 [facility] BASO % - [facility] 0 0 - 2 % 10/17/2017 11:09 [facility] EOS # - [facility] 0.11 0.05 - 0.5 10e3/uL 10/17/2017 11:09 [facility] EOS % - [facility] 2 0 - 5 % 10/17/2017 11:09 [facility] GRAN % - [facility] 54 40 - 80 % 10/17/2017 11:09 [facility] HEMATOCRIT - [facility] 41.7 34.0 - 47.0 % 10/17/2017 11:09 [facility] HEMOGLOBIN - [facility] 14.3 11.2 - 15.7 g/dl 10/17/2017 11:09 [facility] IG# - [facility] 0.02 0 - 0.07 e3/uL 10/17/2017 11:09 [facility] IG% - [facility] 0.3 0 - 0.9 % 10/17/2017 11:09 [facility] LYMPH # - [facility] 2.14 0.9 - 2.9 10e3/uL 10/17/2017 11:09 [facility] LYMPH% - [facility] 37 20 - 40 % 10/17/2017 11:09 [facility] MEAN CORPUSCULAR HGB - [facility] 31.4 26 - 34 pg 10/17/2017 11:09 [facility] MEAN CORPUSCULAR HGB CONC - [facility] 34.3 31 - 36 g/dL 10/17/2017 [facility]09 [facility] MEAN CELL VOLUME - [facility] 91.4 77 - 100 fl 10/17/2017 11:09 [facility] MONO # - [facility] 0.41 0.3 - 0.9 10e3/uL 10/17/2017 11:09 [facility] MONO% - [facility] 7 0 - 12 % 10/17/2017 11:09 [facility] PLATELET COUNT 118(L) 150 - 400 10e3/ul 10/17/2017 11:56 [facility] RED BLOOD COUNT - [facility] 4.56 3.8 - 5.2 10e6/ul 10/17/2017 11:09 [facility] RED CELL DISTRI WIDTH - [facility] 12.5 11.8 - 15.6 % 10/17/2017 11:09 [facility] WHITE BLOOD COUNT - [facility] 5.8 3.5 - 10.5 10e3/ul 10/17/2017 11:09 [facility] 10/17/2017 10:3 7 EDT 10/17/2017 10:37 EDT Narrative [facility] - 10/17/2017 11:56 EDT Does PT Have a Latex Allergy? YES us Molly Cui APRN HEMATOLOGY & PF4 ORDERABLE S Final Result [facility] * AFP TUMOR MARKER (10/17/2017 10:37 EDT) ALPHA-FETOPROTEIN TUMOR MARKER - [facility] 3.0 <8.1 ng/mL 10/18/2017 14:30 [facility] Comment: AFP tumor marker cannot be interpreted in females. ?? Serum AFP concentration should not be interpreted as absolute evidence for the presence or absence of malignant disease. ?? Assayed utilizing Siemens chemiluminescent technology. Values obtained by using different assay methods cannot be used interchangeably. Test Performed by: THE [address] [address] 10/17/2017 10:3 7 EDT 10/17/2017 10:37 EDT Narrative [facility] - 10/18/2017 14:30 EDT Instructions? FAX ATTENTION: VARSHA LAZO NUMBER: [phone] TEST TO BE FAXED?: ALL Does PT Have a Latex Allergy? YES Results faxed on 10/18/17 [phone] by [facility] us Molly Cui APRN CHEMISTRY & BLOOD GAS ORDE LAYLA Final Result [facility] * (ABNORMAL) COMPREHENSIVE METABOLIC PANEL (CMP) (10/17/2017 10:36 EDT) Albumin % 4.3 3.4 - 4.9 g/dL 10/17/2017 11:07 [facility] ALKALINE PHOSPHATASE - [facility] 79 38 - 126 U/L 10/17/2017 11:07 [facility] BILIRUBIN TOTAL 0.6 0.2 - 1.3 mg/dL 10/17/2017 11:07 [facility] BUN - [facility] 15 10 - 26 mg/dL 10/17/2017 11:07 [facility] CALCIUM - [facility] 10.5 8.5 - 10.5 mg/dL 10/17/2017 11:07 [facility] Chloride 99 96 - 110 mmol/L 10/17/2017 11:07 [facility] CO2 Total 27 22 - 32 mEq/L 10/17/2017 11:07 [facility] CREATININE 0.58 0.52 - 1.04 mg/dL 10/17/2017 11:07 [facility] eGFR >60 10/17/2017 11:07 [facility] Comment: Chronic renal impairment is defined as GFR <60 Multiply result by 1.210 for patients. eGFR calculated using the IDMS-traceable MDRD Study Equation. ??(effective 02/08/2014) Anion Gap 14 0 - 18 10/17/2017 11:07 [facility] GLUCOSE - [facility] 184(H) 70 - 100 mg/dL 10/17/2017 11:07 [facility] Potassium 4.1 3.5 - 5.0 mEq/L 10/17/2017 11:07 [facility] Sodium 140 136 - 145 mEq/L 10/17/2017 11:07 EDT [facility] TOTAL PROTEIN - [facility] 7.4 6.2 - 8.2 gm/dL 10/17/2017 11:07 [facility] SGOT/AST - [facility] 32 14 - 36 U/L 10/17/2017 11:07 [facility] SGPT/ALT - [facility] 51 9 - 52 U/L 8 11:07 [facility] 10/17/2017 10:3 6 EDT 10/17/2017 10:36 EDT [facility] - 10/17/2017 11:07 EDT Does PT Have a Latex Allergy? YES us Molly Cui APRN CHEMISTRY & BLOOD GAS ORDE RABLES Final Result [facility] * PROTIME (10/17/2017 10:36 EDT) [facility] PROTHROMBIN TIME - [facility] 10.7 9.5 - 13.4 SECONDS 10/17/2017 11[facility]09 [facility] 10/17/2017 10:3 6 EDT 10/17/2017 10:36 EDT [facility] - 10/03/2018 8:42 EDT Does PT Have a Latex Allergy? YES us Molly Cui APRN HEMATOLOGY & PF4 ORDERABLE S Final Result [facility] * PROTIME (10/17/2017 10:36 EDT) [facility] INR [facility] 1.0 0.9 - 1.2 10/17/2017 11:09 EDT [facility] Comment: Low intensity INR: 2.0-3.0 High intensity INR: Consult Coag Dept. 10/17/2017 10:3 6 EDT 10/17/2017 10:36 EDT Narrative [facility] - 10/03/2018 8:42 EDT Does PT Have a Latex Allergy? YES us Molly Cui VISITOR SERVICES REPRESENTATIVE HEMATOLOGY & PF4 ORDERABLE S Final Result [facility] documented in this encounter Visit Diagnoses Not on filedocumented in this encounter Care Teams E Merchant Relationship Specialty Start Date End Date Lizbet Zhang FNP [address] [place] [address] PCP - General 02/24/13 03/13/20 documented as of this encounter
--- OUTSIDE RECORDS SUMMARY | 2024-04-20 15:56 | XMS_ITS | Encounter Summary ---
Author Organization [facility] Address [address] [place] [address] Care Team Providers Care Appellate Court Clerk Name Role Phone LeathaLizbet MACHINE FINISHER Primary Care Provider [phone] Reason for Visit * Reason Comments New Patient Visit Encounter Details Date Type Department Care Team (Late st Contact Info) Description 02/24/2013 12:45 EST Office Visit [facility] Infectious Disease - [address] [phone] Nilo Baltazar MD [address] [place] [address], [address] [place] [address] Nubia Krause DO Candidiasis of [...] tumor removal 2007 Soc Hx: Lives in [place]. Denies smoking, drinking alcohol. Fam Hx: Cirrhosis [...] would be beneficial to get evaluated by [employer] WASTE TRUCK DRIVER, or if PCP could perform pelvic exam [...] would like to have those drawn at [facility] on her next PCP visit): HgA1C (if not done), CBC with differential, Immunoglobulins, HIV Ab 3. [employer]E TRUCK DRIVER eval for vaginal dryness/pelvic exam 4. F/u [...] mouth documented in this encounter Care Teams Appellate Court Clerk Relationship Specialty Start Date End Date Lizbet Zhang, INDIRA [facility] [place] [address] PCP - General 02/24/13 03/13/20 documented as of this encounter
--- OUTSIDE RECORDS SUMMARY | 2024-04-20 15:56 | XMS_ITS | Encounter Summary ---
Author Organization [facility] Address [address] [place] [address] Care Team Providers Care Chainstitch Binder Name Role Phone Salome Mcarthur PLAN NURSE Primary Care Provider [phone] Encounter Details Date Type Department Care Team (Latest Contact Info) Description 09/05/2023 Plan of Care Documentation [address] [id number] Social History Tobacco Use Types Packs/Day Years [...] dizziness when performing the left and right [place]. However, did not show nystagmus. She completed [...] for 4 weeks. Therapy Treatment to include: 68130 - Therapeutic Exercise, 00236 - Neuromuscular Re-education, 11212 - Canalith Repositioning, and 51217 - Therapeutic Activity Recommended Consults: None currently. [...] on filedocumented in this encounter Care Teams Chainstitch Binder Relationship Specialty Start Date End Date Salome Mcarthur NP [address] [place] [address] PCP - General 03/14/20 documented as of this encounter
--- OUTSIDE RECORDS SUMMARY | 2024-04-20 15:56 | XMS_ITS | Encounter Summary ---
Author Organization [facility] Address [address] [place] [address] Care Team Providers Care School Transportation Supervisor Name Role Phone Salome Mcarthur NUTRITION CONSULTANT Primary Care Provider Reason for Visit * Reason Comments New Patient Visit Spot of right calf t hat has been there for a few weeks that's getting bigger. No P/FHx of skin cancer Encounter Details Date Type Department Care Team (Late st Contact Info) Description 03/16/2020 11:00 EST Office Visit [facility] Dermatology [address] [facility], [place] [address] Brittanie Ponce MD [address] [facility], [facility] [address] [place] [address] Neoplasm of uncertain behavior of [...] pain should be mild. Take according to assistant to the dean directions. BLEEDING: You may notice some blood [...] PATIENT INFORMATION: Milka Corbett : MRN: [id number] SURGEON: Brittanie Ponce MD The indication, risks, [...] 03/16/2020 1100 EST Lidocaine Lot #[id number] EXP: [id number] documented in this encounter Miscellaneous Notes * [...] this encounter Results * ROUTINE CULTURE - [facility] (03/16/2020 11:45 EST) USUAL SKIN TRUNG - [facility] USF 03/19/2020 9:38 EST [facility] QUANT - [facility] MODERATE 03/19/2020 9:38 EST [facility] Lower limb structure (body structure) 03/16/2020 11:45 EST 03/17/2020 16:10 EST Comment:RL Daria [facility] - 03/19/2020 9:38 EST RIGHT LOWER LEG us Brittanie Ponce MD CHEMISTRY & BLOOD GAS ORDERABL ES Final Result Performing Organization Address [facility] Co de Phone Number [facility] [address] [place] [address] * GRAM SMEAR (03/16/2020 11:45 EST) GRAM STAIN - [facility] TWO SWABS RECEIVED FOR CULTURE AND GRAM STAIN 03/17/2020 19:43 [facility] BACTERIA SEEN - [facility] NO 03/17/2020 19:43 [facility] WBC NO 03/17/2020 19:43 [facility] Lower limb structure (body structure) 03/16/2020 11:45 EST 03/17/2020 16:10 EST Comment:RL Daria [facility] - 03/19/2020 9:38 EST RIGHT LOWER LEG us Brittanie Ponce MD MICROBIOLOGY - GENERAL ORDERAB LES Final Result Performing Organization Address City/[facility]/ZIP Co de Phone Number [facility] [address] [place] [address] * SURGICAL PATHOLOGY (03/16/2020 11:44 EST) Final Diagnosis A. SKIN OF LEG, RIGHT LOWER, SHAVE BIOPSY: - Seborrheic keratosis, irritated. 03/21/2020 16:17 [facility] Attestation By the signature below, the attending physician certifies that they have 1) personally conducted a gross and/or microscopic examination of the described specimen(s), and/or personally interpreted the results of laboratory testing of the described specimen(s), and 2) personally rendered or confirmed the above diagnosis. 03/21/2020 16:17 [facility] at 1617 Microscopic Description Sections consist of a shave biopsy of a papule. There is hyperkeratosis with focal parakeratosis. The papules formed by epidermal acanthosis with a focal endophytic growth pattern. The keratinocytes have reactive changes with hypergranulosis. Within the dermis, there is a patchy mixed infiltrate. Deeper sections have similar features. 03/21/2020 16:17 [facility] Clinical History Indurated tender pink papule with surrounding erythema: ?SCC vs BCC vs irritated SK vs LPLK vs other; clinical diagnosis code: D48.5 03/21/2020 16:17 [facility] Gross Description A. Received in formalin labelled with proper patient identification (initials C, S) and not otherwise specified is a shave biopsy of pale tillman to tillman-pink plaque like skin (1.1 x 0.8 x 0.1 cm). The margin is inked blue. Trisected and submitted in A1. Alexis Ponce 03/17/2020 10:16 03/21/2020 16:17 [facility] Performing Lab [facility] 03/21/2020 16:17 [facility] Scanned Images 03/21/2020 16:17 [facility] Tissue TISSUE SPECIMEN FROM SKIN / Unknown 03/16/2020 11:44 EST 03/17/2020 6:54 EST us Brittanie Ponce MD PATHOLOGY ORDERABLES Final Res ult [facility] [address] [place] [address] documented in this encounter Visit Diagnoses Diagnosis [...] documented as of this encounter Care Teams School Transportation Supervisor Relationship Specialty Start Date End Date Salome Mcarthur, NUTRITION CONSULTANT [address] [place] [address] PCP - General 03/14/20 documented as of this encounter
--- OUTSIDE RECORDS SUMMARY | 2024-04-20 15:56 | XMS_ITS | Encounter Summary ---
Author Organization [facility] Address [address] [place] [address] Care Team Providers Care Rehabilitation Assistant Name Role Phone Salome Mcarthur GOLD LEAF LAYER Primary Care Provider Reason for Visit * Reason Comments Oral Pain Encounter Details Date Type Department Care Team (Late st Contact Info) Description 08/04/2023 15:30 EDT Walk-In [address] [id number] Tristan Santa, JEIMY [address] [facility] [address] [place] [address] Thrush, oral (Primary Dx) Social [...] the past. I did send it to [facility] so if they do not have it they can call and we can order else where or send in a different script. Follow-up with dentist related to ill fitting partials as you do have some irritated mucosa lining your lower partial on the left side. * Attachments The following attachments cannot be sent through Care Everywhere. * Candidiasis (Cambodian) documented in this encounter Ordered Prescriptions Prescription [...] RN or in discussion with available provider (DIRECTOR STUDENT UNION's and CCA's can defer to Charge Nurse to complete triage when appropriate) PCP: Salome Mcarthur * Tristan Santa NP - 08/04/2023 1530 EDT Images from the original note were not included. [facility] Chief Complaint(s): Oral Pain Assessment [...] day 07/15/2023 d-mannose 500 mg capsule daily. [email or web address] ULTRA2 METER 02/07/2023 [facility] ULTRA TEST test strips USE 1 STRIP VIA METER THREE TIMES A DAY DIRECTED 09/11/2022 atorvastatin (LIPITOR) 20 mg tablet TAKE 1 TABLET BY MOUTH AT NIGHT albuterol 90 mcg/actuation inhaler Inhale 2 puff using inhaler every four to six hours as needed added in this encounter Care Teams Rehabilitation Assistant Relationship Specialty Start Date End Date Salome Mcarthur, GOLD LEAF LAYER [address] [place] [id number] PCP - General 03/14/20 documented as of this encounter
--- OUTSIDE RECORDS SUMMARY | 2024-04-20 15:56 | XMS_ITS | Encounter Summary ---
Author Organization [facility] Address [address] [place] [address] Care Team Providers Care Press Reader Name Role Phone Salome Mcarthur COMB MACHINE OPERATOR Primary Care Provider [phone] Reason for Visit * Reason Comments Rash Encounter Details Date Type Department Care Team (Late st Contact Info) Description 11/03/2023 9:30 EDT Walk-In [address] [id number] Jess Ferguson NP [address] [facility] [address] [place] [address] Intertrigo (Primary Dx) Social History [...] Has tried Clobetasol ointment without relief. * Jses Ferguson NP - 11/03/2023 4801 EDT [facility] Chief Complaint(s): Chief Complaint Patient [...] by mouth 2 times daily. 08/09/2023 lancets (AnametrixTOUCH DELICA PLUS LANCET) 30 gauge misc USE 1 LANCET THREE TIMES A DAY DIRECTED blood glucose meter (AnametrixTOUCH ULTRA2 METER) Use 1 unit as directed [...] syndrome. added in this encounter Care Teams Press Reader Relationship Specialty Start Date End Date Salome Mcarthur NP [address] [place] [address] PCP - General 03/14/20 documented as of this encounter
--- OUTSIDE RECORDS SUMMARY | 2024-04-20 15:56 | XMS_ITS | Encounter Summary ---
Author Organization [facility] Address [address] [place] [address] Care Team Providers Care Telecommunication Equipment Repairer Name Role Phone Leatha Lizbet C APRON OPERATOR Primary Care Provider [phone] Encounter Details Date Type Department Care Team (Late st Contact Info) Description 01/16/2018 Historical Results Only [facility] Radiology Results [address] [place], [place] [id number] Ella Castle MD [address] [place] [address] Social History Tobacco Use Types Packs/Day [...] noncritical result requiring ? follow-up on the [employer] PACS findings application, to be tracked by ? the [facility] tracking system. ? REPORT SIGNED IN OTHER VENDOR SYSTEM 01/16/2018 ?Reported By: Francis Bustamante MD ? CC: LANI WALLIS ? Transcribed Date/Time: 01/16/2018 (1706) ? Observatory Director: ? Printed Date/Time: 09/27/2018 (6566) ? PAGE 1 ? Signed Report ? [...] a noncritical result requiring follow-up on the [employer] PACS findings application, to be tracked by the [facility] tracking system. REPORT SIGNED IN OTHER VENDOR SYSTEM 01/16/2018 Reported By: Francis Bustamante MD CC: LANI WALLIS Transcribed Date/Time: 01/16/2018 (8929) Observatory Director: Printed Date/Time: 09/27/2018 (5186) PAGE 1 Signed Report us Ella Castle MD IMG CT ORDERABLES Final R esult documented in this encounter Visit Diagnoses Not on filedocumented in this encounter Care Teams Telecommunication Equipment Repairer Relationship Specialty Start Date End Date Lizbet Zhang FNP [address] [place] [address] PCP - General 02/24/13 03/13/20 documented as of this encounter
--- OUTSIDE RECORDS SUMMARY | 2024-04-20 15:56 | XMS_ITS | Encounter Summary ---
Author Organization [facility] Address [address] [place] [address] Care Team Providers Care Boat Operator Name Role Phone LeathaLizbet MASTER BARBER Primary Care Provider [phone] Encounter Details Date Type Department Care Team (Latest Contact Info) Description 05/04/2013 17:05 EST - 05/04/2013 23:59 EST Hospital Encounter [facility] [address] [place] [address] Unknown, Provider, MD Discharge Disposition: Home or [...] 1 Tab by mouth daily before breakfast. [place]-3 Fatty Acids-Vitamin E (FISH OIL) 1,000 mg [...] Code Departure Means Destination Home or Self Half-Way documented in this encounter Plan of Treatment Not on file documented as of this encounter Visit Diagnoses Not on filedocumented in this encounter Care Teams Boat Operator Relationship Specialty Start Date End Date Lizbet Zhang FNP [address] [place] [address] PCP - General 02/24/13 03/13/20 documented as of this encounter
--- OUTSIDE RECORDS SUMMARY | 2024-04-20 15:56 | XMS_ITS | Encounter Summary ---
Author Organization [facility] Address [address] [place] [address] Care Team Providers Care Adjustment Clerk Name Role Phone Lizbet Zhang Primary Care Provider [phone] Encounter Details Date Type Department Care Team (Late st Contact Info) Description 01/19/2014 Orders Only [facility] Infectious Disease - [address] [id number] Pino Oleary, TRISHA Social History Tobacco Use [...] on filedocumented in this encounter Care Teams Adjustment Clerk Relationship Specialty Start Date End Date Lizbet Zhang FNP [address] [place], [place] [address] PCP - General 02/24/13 03/13/20 documented as of this encounter
--- OUTSIDE RECORDS SUMMARY | 2024-04-20 15:56 | XMS_ITS | Encounter Summary ---
Author Organization [facility] Address [address] [place] [address] Care Team Providers Care Surgical Training Specialist Name Role Phone Agustin Ramires MD Primary Care Provider [phone] Encounter Details Date Type Department Care Team (Latest Contact Info) Description 08/21/2011 6:58 EDT - 08/22/2011 15:08 EDT Hospital Encounter [facility] Neurosurgery Unit [address] [place], [place] [id number] Tim Molina MD [address] [place] [phone] Discharge Disposition: Home or Self Care [...] 1 Tab by mouth daily before breakfast. Norris-3 Fatty Acids-Vitamin E (FISH OIL) 1,000 mg [...] spiritual, emotional, legal, etc.): Prescription coverage through [facility] ([facility]). Denies needs for post-acute services. Patient may go home with Singer. Spouse feels comfortable and has been a coin dealer for the patient In the past when she had a Singer. Spouse will provide transportation home and for post-acute needs. Case Management Actions (completed and planned): DCP: home with spouse. No post-acute needs identified. Andreia Faustin RN, CCM #[id number] * Sandra Irwin PA - 08/22/2011 0857 EDT [facility] Urologic Surgery Daily Progress Note Admit Date: [...] DOS fexofenadine (JESÚS) 60 mg tablet Yes Norris-3 Fatty Acids-Vitamin E (FISH OIL) 1,000 mg [...] documented in this encounter H&P Notes * FAILURE ANALYSIS TECHNICIAN, SCAN 2 - 08/29/2011 1153 EDT * [...] documented in this encounter Procedure Notes * FAILURE ANALYSIS TECHNICIAN, SCAN 2 - 08/24/2011 2202 EDTAssociated Order(s): ECG REPORT - SCANNED documented in this encounter Nursing Notes * FAILURE ANALYSIS TECHNICIAN, SCAN 2 - 08/24/2011 2202 EDT documented in this encounter OR Notes * OR PreOp - FAILURE ANALYSIS TECHNICIAN, SCAN 2 - 08/24/2011 2202 EDT * [...] repair and cystoscopy. SURGEON: Tim Molina MD LABORATORY SAMPLE CARRIER: Montrell Barron SA FINDINGS: After cystocele repair was completed, cystoscopy showed good efflux of urine from each ureteral orifice. After Stamey needle passage there was no evidence of needle entry into the bladder or urethra on cystoscopy. ANESTHESIA: General. ESTIMATED BLOOD LOSS: Less than 100 mL. FLUIDS: Approximately 1 L of crystalloid. SPECIMENS: None. DRAINS: A 16-Martiniquais Singer catheter, and an Estrace-coated vaginal packing. [...] weighted vaginal speculum was placed and a [place] retractor with retracting hooks was placed for adequate exposure to the vagina. At this point, the anterior vaginal wall was grasped between Allis clamps. A 16-Martiniquais Singer catheter was placed into the bladder. [...] then tied across the midline over the certified medical technician assistant's finger being used as a spacer, [...] / Tim Farrell. MD Jesse cs Confirmation: [id number] Dictation ID: [id number] cc:Agustin Boykin MD * Anesthesia Procedure Notes - FAILURE ANALYSIS TECHNICIAN, SCAN 2 - 08/21/2011 1338 EDT * OR PreOp - FAILURE ANALYSIS TECHNICIAN, SCAN 2 - 08/21/2011 1326 EDT * Anesthesia Preprocedure Evaluation - FAILURE ANALYSIS TECHNICIAN, SCAN 2 - 08/21/2011 1001 EDT documented in this encounter Miscellaneous Notes * Scanned Note-Null - FAILURE ANALYSIS TECHNICIAN, SCAN 2 - 08/24/20112201 EDT * Scanned Note-Null - FAILURE ANALYSIS TECHNICIAN, SCAN 2 - 08/24/20112201 EDT * Plan [...] Care - Silvia Gr RN - 08/22/2011 0084 EDT Problem: PAIN Goal: Patient???s pain/discomfort is manageable/tolerable Data: Patient c/o pain in abd and vagina 06/15. Action: Medicated with PRN tylenol and dilaudid. Response: Patient is now resting comfortably, will continue to monitor. Silvia Gr RN 08/22/2011 3:43 * Plan of Care - Jewels Wheeler RN - 08/21/2011 1285 EDT Problem: OXYGENATION/REPIRATORY FUNCTION Goal: Patient will achieve/maintain baseline respiratory rate/effort Outcome: Ongoing Active Multi-Disciplinary problems: FALL RISK [201451] (08/21/11) HEMODYNAMIC STATUS [557189] (08/21/11) OXYGENATION/REPIRATORY FUNCTION [765700] (08/21/11) PAIN [[id number]] (08/21/11) MOBILITY [[id number]] (08/21/11) KNOWLEDGE DEFICIT,EDUCATION,DISCHARGE PLAN [[id number]] (08/21/11) Data: Patient arrived on M6, minimal [...] Tim Molina MD - 08/21/2011 1315 EDT [facility] Urologic Surgery Brief Post-Op Note Date of [...] EDT) 08/24/2011 22:0 2 EDT Narrative Transcriptions FAILURE ANALYSIS TECHNICIAN, SCAN 2 - 08/24/2011 22:02 EDT us Scan 2 Manager Business Process PROCEDURE/MINOR SURGICAL OR DERABLES Final Result * (ABNORMAL) GLUCOSE, GLUCOMETER (08/22/2011 11:44 EDT) Glucose, Fingerstick 162(H) 70 - 100 mg/dl [facility] Banking Assistant [place] [id number] [facility] Comment:Test Performed by [facility] 08/22/2011 11:4 4 EDT 08/22/2011 11:45 EDT us Tim Molina MD CHEMISTRY & BLOOD GAS ORDER JOEY Final Result Performing Organization Address [facility] Co de Phone Number [facility] [address] [place] [address] * (ABNORMAL) GLUCOSE, GLUCOMETER (08/22/2011 7:11 EDT) Glucose, Fingerstick 137(H) 70 - 100 mg/dl [facility] Banking Assistant [place] [id number] [facility] Comment:Test Performed by [facility] 08/22/2011 7:11 EDT 08/22/2011 7:13 EDT us Tim Molina MD CHEMISTRY & BLOOD GAS ORDER JOEY Final Result Performing Organization Address City/[facility]/ZIP Co de Phone Number [facility] [address] [place] [address] * CREATININE (08/22/2011 3:28 EDT) Creatinine 0.54 0.52 - 1.04 mg/dl [facility] GFR, Calculated >60 >60 ml/min/1.7 3m2 [facility] Blood specimen (specimen) 08/22/2011 3:28 EDT 08/22/2011 3:42 EDT Sandra Mcdermott Stampfl PA-C CHEMISTRY & BLOOD GAS O RDERABLES Final Result Performing Organization Address [facility] de Phone Number [facility] [address] [place] [address] * BUN (08/22/2011 3:28 EDT) BUN 13 10 - 26 mg/dl [facility] Blood specimen (specimen) 08/22/2011 3:28 EDT 08/22/2011 3:42 EDT Sandra Maofl PA-C CHEMISTRY & BLOOD GAS O RDERABLES Final Result Performing Organization Address [facility] Phone Number [facility] [address] [place] [address] * (ABNORMAL) ELECTROLYTES (08/22/2011 3:28 EDT) Sodium [...] O RDERABLES Final Result Performing Organization Address [facility] Co de Phone Number [facility] [address] [place] [address] * (ABNORMAL) HEMAGRAM (08/22/2011 3:28 EDT) Pathologist [facility] WBC 12.59(H) 4.0 - 12.4 K/cmm [facility] [...] LAB PLT 152 141 - 320 K/cmm [facility] RDW-CV 13.6 11.7 - 14.6 % [facility] Blood specimen (specimen) 08/22/2011 3:28 EDT 08/22/2011 3:42 EDT us Sandra Irwin PA-C HEMATOLOGY & PF4 ORDERA BLES Final Result [facility] [address] [place] [address] * (ABNORMAL) GLUCOSE, GLUCOMETER (08/21/2011 21:09 EDT) [facility] Glucose, Fingerstick 170(H) 70 - 100 mg/dl [facility] Banking Assistant [place] [id number] [facility] Comment:Test Performed by [facility] 08/21/2011 21:0 9 EDT 08/21/2011 21:28 EDT us Tim Molina MD CHEMISTRY & BLOOD GAS ORDER JOEY Final Result [facility] [address] [place] [address] * (ABNORMAL) GLUCOSE, GLUCOMETER (08/21/2011 19:35 EDT) Glucose, Fingerstick 190(H) 70 - 100 mg/dl [facility] Banking Assistant [place] [id number] [facility] Comment:Test Performed by [facility] 08/21/2011 19:3 5 EDT 08/21/2011 19:40 EDT us Tim Molina MD CHEMISTRY & BLOOD GAS ORDER JOEY Final Result Performing Organization Address [facility] Co de Phone Number [facility] [address] [place] [address] * (ABNORMAL) GLUCOSE, GLUCOMETER (08/21/2011 13:36 EDT) Glucose, Fingerstick 189(H) 70 - 100 mg/dl [facility] Banking Assistant [place] [id number] [facility] Comment:Test Performed by [employer] [facility] [employer] 08/21/2011 13:3 6 EDT 08/21/2011 16:10 EDT us Tim Molina MD CHEMISTRY & BLOOD GAS ORDER JOEY Final Result Performing Organization Address [facility] de Phone Number [facility] [address] [place] [address] * (ABNORMAL) GLUCOSE, GLUCOMETER (08/21/2011 8:38 EDT) Glucose, Fingerstick 142(H) 70 - 100 mg/dl [facility] Banking Assistant [place] [id number] [facility] Comment:Test Performed by [employer] [facility] 08/21/2011 8:38 EDT 08/21/2011 8:44 EDT us Tim Molina MD CHEMISTRY & BLOOD GAS ORDER JOEY Final Result Performing Organization Address [facility] de Phone Number [facility] [address] [place] [address] documented in this encounter Visit Diagnoses Not [...] Lana Bowles - Comment: Administered by [facility]) clonAZEPAM (KLONOPIN) tablet 0.5 mg (CANCELED) 0.5 [...] Martinez RN)1441 (Given - Provider: Afua Martinez, TIRSHA)1506 (Given - Provider: Afua Martinez RN) HYDROmorphone [...] mL syringe 0.5 mg 1 0 08/21/2011 icwdfjamtl-wmgarlk-bkizbfst (FIORINAL) 50-325-40 mg capsule 1 Cap 1 [...] 08/22/2011 documented in this encounter Care Teams Surgical Training Specialist Relationship Specialty Start Date End Date Agustin Ramires MD [address],[facility] [address] [place] [phone] PCP - General 08/20/11 02/23/13 documented as of this encounter
--- OUTSIDE RECORDS SUMMARY | 2024-04-20 15:56 | XMS_ITS | Encounter Summary ---
Author Organization [facility] Address [address] [place] [address] Care Team Providers Care Machinist Name Role Phone Salome Mcarthur INDUSTRIAL RENDERER Primary Care Provider [phone] Encounter Details Date Type Department Care Team (Late st Contact Info) Description 10/25/2021 Documentation Visit [facility] - [address] [address] Kal Clark, PT [address] [place], [place] [phone] Social History Tobacco Use Types Packs/Day Years [...] Clark, PT - 10/25/[address] [facility] Outpatient Rehabilitation Services [phone] Physical Therapy Discharge Not Seen Recently Medical [...] Date End Date Salome Mcarthur NP [address] [place] [address] PCP - General 03/14/20 documented as of this encounter
--- OUTSIDE RECORDS SUMMARY | 2024-04-20 15:56 | XMS_ITS | Encounter Summary ---
Author Organization [facility] Address [address] [place] [address] Care Team Providers Care Appraiser Boats And Marine Name Role Phone Lizbet Zhang Primary Care Provider [phone] Encounter Details Date Type Department Care Team (Late st Contact Info) Description 01/15/2018 Historical Results Only [facility] [place] Results [address] [place], [place] [id number] Ella Castle MD [address] [place] [phone] Social History Tobacco Use Types Packs/Day [...] on filedocumented in this encounter Care Teams Appraiser Boats And Marine Relationship Specialty Start Date End Date Lizbet Zhang, GROUNDS MAINTENANCE SUPERVISOR [address] [facility] [place] [address] PCP - General 02/24/13 03/13/20 documented as of this encounter
--- OUTSIDE RECORDS SUMMARY | 2024-04-20 15:56 | XMS_ITS | Encounter Summary ---
Author Organization [facility] Address [address] [place] [address] Care Team Providers Care Nursing Program Coordinator Name Role Phone Salome Mcarthur EXERCISE PHYSIOLOGIST Primary Care Provider Encounter Details Date Type Department Care Team (Latest Contact Info) Description 09/28/2021 Plan of Care Documentation [facility] Rehabilitation Therapy [address] [place] [id number] Social History Tobacco Use Types Packs/Day Years [...] Notes * Kal Clark, PT - 09/28/2021 0737 EDT Outpatient Rehab Plan of Care ASSESSMENT [...] for 6 weeks Therapy Treatment to include: 98235 - Therapeutic Exercise, 36883 - Neuromuscular Re-education, 22299 - Canalith Repositioning and 28671 - Therapeutic Activity Recommended Consults: None currently [...] on filedocumented in this encounter Care Teams Nursing Program Coordinator Relationship Specialty Start Date End Date Salome Mcarthur, JEIMY [address] [place] [address] PCP - General 03/14/20 documented as of this encounter
--- OUTSIDE RECORDS SUMMARY | 2024-04-20 15:56 | XMS_ITS | Encounter Summary ---
Author Organization [facility] Address [address] [place] [address] Care Team Providers Care Radar Tester Name Role Phone LeathaLizbet CARBONATION TESTER Primary Care Provider [phone] Encounter Details Date Type Department Care Team (Latest Contact Info) Description 01/15/2018 15:25 EDT - 01/15/2018 23:59 EDT Hospital Encounter [facility] [address] [place] [address] Unknown, Provider, MD Discharge Disposition: Home or [...] 1 Tab by mouth daily before breakfast. Hampton-3 Fatty Acids-Vitamin E (FISH OIL) 1,000 mg [...] Code Departure Means Destination Home or Self Jail documented in this encounter Plan of Treatment Not on file documented as of this encounter Visit Diagnoses Not on filedocumented in this encounter Care Teams Radar Tester Relationship Specialty Start Date End Date Lizbet Zhang FNP [address] [place] [address] PCP - General 02/24/13 03/13/20 documented as of this encounter
--- OUTSIDE RECORDS SUMMARY | 2024-04-20 15:56 | XMS_ITS | Encounter Summary ---
Author Organization [facility] Address [address] [place] [address] Care Team Providers Care Glass Technician Name Role Phone Salome Mcarthur MANAGER WHOLESALE Primary Care Provider [phone] Encounter Details Date Type Department Care Team (Latest Contact Info) Description 09/06/2022 Plan of Care Documentation [address] [id number] Social History Tobacco Use Types Packs/Day Years [...] she was so sensitive to bilateral Hallpike [place], she has bilateral posterior canalithesis. She has [...] for 6 weeks. Therapy Treatment to include: 82138 - Therapeutic Exercise, 35952 - Neuromuscular Re-education, 38570 - Canalith Repositioning and 56290 - Therapeutic Activity Recommended Consults: None currently Development of Plan of Care: Patient participated in development of plan of care today. Plan for next visit: Review the right Amanda for independence. Assess response to current exercises,and assess Hallpike-Scott again. If still has vertigo, may attempt [...] filedocumented in this encounter Care Teams Glass Technician Relationship Specialty Start Date End Date Salome Mcarthur MANAGER WHOLESALE [address] [place] [address] PCP - General 03/14/20 documented as of this encounter
--- OUTSIDE RECORDS SUMMARY | 2024-04-20 15:56 | XMS_ITS | Encounter Summary ---
Author Organization [facility] Address [address] [place] [address] Care Team Providers Care Computer Artist Name Role Phone Salome Mcarthur MARKETING STRATEGY LEAD Primary Care Provider Encounter Details Date Type [...] filedocumented in this encounter Care Teams Computer Artist Relationship Specialty Start Date End Date Salome Mcarthur, MARKETING STRATEGY LEAD [address] [place] [address] PCP - General 03/14/20 documented as of this encounter
--- OUTSIDE RECORDS SUMMARY | 2024-04-20 15:56 | XMS_ITS | Encounter Summary ---
Author Organization [facility] Address [address] [place] [address] Care Team Providers Care Radio Reporter Name Role Phone Kayleigh Peña Primary Care Provider [phone] Reason for Visit * Reason Comments Other URO Encounter Details Date Type Department Care Team (Latest Contact Info) Description 07/03/2011 11:00 EDT Office Visit [facility] Pelvic Medicine and Reconstructive Surgery - Medical Office [facility] [address] [place] [address] Tim Molina MD [address] [place] [phone] Female bladder prolapse (Primary Dx); Rectocele; [...] encounter Miscellaneous Notes * Scanned Note-Null - TYPE PROOF REPRODUCER, SCAN 2 - 07/09/2011 1136 EDT documented [...] Ketones Neg Neg [facility] Specific [place] 1.010 1.001 - 1.035 [facility] Blood Neg Neg [facility] pH 5.0 4.6 - 8.0 [facility] Protein Neg Neg [facility] Urobilinogen 0.2 0.2 - 1.0 E.U./dl [facility] Nitrite Neg Neg [facility] Leuk Esterase Neg Neg FLEMATTHEW ER [facility] ag service manager ID [id number] [facility] Comment:Test performed at [facility]ence [place] Urine specimen (specimen) 07/03/2011 10:26 EDT 07/03/2011 10:35 EDT us Tim Molina MD POINT OF CARE TEST ORDERABL ES Final Result [facility] [address] [place] [address] documented in this encounter Visit Diagnoses Diagnosis [...] 07/02 documented in this encounter Care Teams Radio Reporter Relationship Specialty Start Date End Date Kayleigh Peña PA [address] [facility] [address] [place] [address] PCP - General 05/16/11 08/19/11 documented as of this encounter
--- OUTSIDE RECORDS SUMMARY | 2024-04-20 15:56 | XMS_ITS | Encounter Summary ---
Author Organization [facility] Address [address] [place] [address] Care Team Providers Care Basin Finish Operator Tig Welder Name Role Phone Salome Mcarthur MACHINE I COREMAKER Primary Care Provider [phone] Reason for Visit * Reason Onset Date Comments New/Evolving Symptoms 01/05/2022 Encounter Details Date Type Department Care Team (Late st Contact Info) Description 01/05/2022 Telephone [facility] [place] [address] [place] [address], [place] [address] Brittanie Ponce MD [address] [facility] [address] [place] [address] New/Evolving Symptoms Social History Tobacco [...] on filedocumented in this encounter Care Teams Basin Finish Operator Tig Welder Relationship Specialty Start Date End Date Salome Mcarthur NP [address] [place] [address] PCP - General 03/14/20 documented as of this encounter
--- OUTSIDE RECORDS SUMMARY | 2024-04-20 15:56 | XMS_ITS | Encounter Summary ---
Author Organization [facility] Address [address] [place] [address] Care Team Providers Care Furnace Mason Name Role Phone Salome Mcarthur FAMILY LITERACY COORDINATOR Primary Care Provider [phone] Encounter Details Date Type Department Care Team (Late st Contact Info) Description 10/17/2023 Documentation Visit [facility] - [address] [address] Kal Clark, PT [address] [place], [place] [phone] Social History Tobacco Use Types Packs/Day Years [...] EDT [facility] Outpatient Rehabilitation Services [phone] Physical Therapy Discharge Not Seen Recently Medical [...] on filedocumented in this encounter Care Teams Furnace Mason Relationship Specialty Start Date End Date Salome Mcarthur NP [address] [place] [address] PCP - General 03/14/20 documented as of this encounter
--- OUTSIDE RECORDS SUMMARY | 2024-04-20 15:56 | XMS_ITS | Encounter Summary ---
Author Organization [facility] Address [address] [place] [address] Care Team Providers Care Systems Development Manager Name Role Phone Agustin Ramires MD Primary Care Provider [phone] Reason for Visit * Reason Comments Post-OP Follow Up weak stream Encounter Details Date Type Department Care Team (Latest Contact Info) Description 09/13/2011 11:[address] [facility] Pelvic Medicine and Reconstructive Surgery - Medical Office [facility] [address] [place] [address] Tim Molina MD [address] [place] [phone] Female bladder prolapse (Primary Dx); Rectocele; [...] Tim Molina MD - 09/14/2011 0858 EDT [facility] [place] [address] Telephone Toll-Free PROGRESS/FOLLOWUP NOTE - 09/13/2011 SUBJECTIVE: [...] next 6 weeks. Since I am leaving [place], she will need to follow up with an alternative urologist in the future and, of course, this could be Dr Ashutosh alcaraz or one of the urologists here at [facility] as needed. Electronically Signed by Tim Molina MD 09/18/2011 13:28 Tim Molina MD - Tim Molina MD - MLD Job ID: SM Doc ID: [id number] Ext Doc ID: [id number] cc: MD Leland Aburto MD * Tim [...] Ketones Neg Neg [facility] Specific [place] <=1.005 1.001 - 1.035 [facility] Blood Trace(A) Neg [facility] pH 5.0 4.6 - 8.0 [facility] Protein Neg Neg [facility] Urobilinogen 0.2 0.2 - 1.0 E.U./dl [facility] Nitrite Neg Neg [facility] Leuk Esterase 1+(A) Neg MAGY CURIEL [facility] inspector packager ID [id number] [facility] Comment:Test performed at [facility] Urine specimen (specimen) 09/13/2011 11:38 EDT 09/13/2011 11:44 EDT us Tim Molina MD POINT OF CARE TEST ORDERABL ES Final Result [facility] [address] [place] [address] documented in this encounter Visit Diagnoses Diagnosis Female bladder prolapse- Primary Cystocele, midline Rectocele Mixed incontinence urge and stress Mixed incontinence urge and stress (male)(female) documented in this encounter Care Teams Systems Development Manager Relationship Specialty Start Date End Date Agustin Ramires MD [address] [place] [phone] PCP - General 08/20/11 02/23/13 documented as of this encounter
--- OUTSIDE RECORDS SUMMARY | 2024-04-20 15:56 | XMS_ITS | Encounter Summary ---
Author Organization [facility] Address [address] [place] [address] Care Team Providers Care Ship Joiner Name Role Phone Salome Mcarthur TIME CLOCK MECHANIC Primary Care Provider [phone] Reason for Visit * Reason Onset Date Comments Appointment Related 02/21/2021 Encounter Details Date Type Department Care Team (Late st Contact Info) Description 02/21/2021 Telephone [facility] [address] [place], [place] [phone] Mallory Gallagher, PT [address] [place] [address] Appointment Related Social History Tobacco [...] filedocumented in this encounter Care Teams Ship Joiner Relationship Specialty Start Date End Date Salome Mcarthur, TIME CLOCK MECHANIC [address] [place] [address] PCP - General 03/14/20 documented as of this encounter
--- OUTSIDE RECORDS SUMMARY | 2024-04-20 15:56 | XMS_ITS | Encounter Summary ---
Author Organization [facility] Address [address] [place] [address] Care Team Providers Care Automobile Body Customizer Name Role Phone Lizbet Zhang PUBLISHING SPECIALIST Primary Care Provider [phone] Salome Mcarthur MIDDLE SCHOOL BAND TEACHER Primary Care Provider [phone] Encounter Details Date Type Department Care Team (Late st Contact Info) Description 08/19/2019 Lab Requisition [facility] Pathology & Laboratory Medicine - [address] [id number] Outr Resulting Lab, Provider Social History Tobacco [...] Priority Date/Time Associated Diagnosis Comments ZZCOVID-19 TEST [facility] PCR Today 08/19/2019 21:00 EDT COVID-19 TESTING Routine 08/19/2019 21:0 0 EDT documented in this encounter Results * COVID-19 TEST [facility] PCR (08/19/2019 21:00 EDT) Swab ENTIRE NASOPHARYNX / Unknown 08/19/2019 21:00 EDT 08/19/2019 23:27 EDT us Provider Outr Resulting Lab MICROBIOLOGY - GENER AL ORDERABLES Final Result Performing Organization Address City/[facility]/ZIP Co de Phone Number [facility] [address] [place] [address] * COVID-19 TESTING (08/19/2019 21:00 EDT) COVID-19 rt-PCR Result Negative Negative 08/20/2019 2:04 EDT [facility] Comment: This test has [...] history, and epidemiological information. Performed on the [facility] [employer] instrument Performing Lab [facility] Lab 08/20/2019 2:04 EDT [facility] Swab ENTIRE NASOPHARYNX / Unknown 08/19/2019 21:00 EDT 08/19/2019 23:27 EDT us Provider Outr Resulting Lab MICROBIOLOGY - GENER AL ORDERABLES Final Result [facility] [address] [place] [address] documented in this encounter Visit Diagnoses Not on filedocumented in this encounter Care Teams Automobile Body Customizer Relationship Specialty Start Date End Date Lizbet Zhang FNP [address] [place] [address] PCP - General 02/24/13 03/13/20 Salome Mcarthur, JEIMY [address] [place] [address] PCP - General 03/14/20 documented as of this encounter
--- OUTSIDE RECORDS SUMMARY | 2024-04-20 15:56 | XMS_ITS | Encounter Summary ---
Author Organization [facility] Address [address] [place] [address] Care Team Providers Care Excellence Manager Name Role Phone Salome Mcarthur SPEECH LANGUAGE PATHOLOGY ASSISTANT Primary Care Provider [phone] Encounter Details Date Type Department Care Team (Late st Contact Info) Description 10/25/2023 Lab Requisition [facility] Pathology & Laboratory Medicine - [facility] [address] [place] [address] Outr Resulting Lab, Provider Social [...] Wendy Species Positive(A) Negative 10/26/19 12:46 EDT [facility] Wendy glabrata Positive(A) Negative 10/26/2023 12:46 EDT [facility] Trichomonas Vaginalis Negative Negative 10/26/2023 12:46 EDT [facility] BV (Bacterial vaginosis) Negative Negative 10/26/2023 12:46 EDT [facility] Swab VAGINAL STRUCTURE / Unknown 10/25/2023 11:00 EDT 10/25/2023 22:59 EDT us Provider Outr Resulting Lab MICROBIOLOGY - GENER AL ORDERABLES Final Result Performing Organization Address City/State/[facility] Co de Phone Number [facility] [address] [place] [address] documented in this encounter Visit Diagnoses Not on filedocumented in this encounter Care Teams Excellence Manager Relationship Specialty Start Date End Date Salome Mcarthur NP [address] [place] [address] PCP - General 03/14/20 documented as of this encounter
--- OUTSIDE RECORDS SUMMARY | 2024-04-20 15:56 | XMS_ITS | Encounter Summary ---
Author Organization [facility] Address [address] [place] [address] Care Team Providers Care Automotive Center Manager Name Role Phone LeathaLizbet ALLOPATHIC DOCTOR Primary Care Provider [phone] Encounter Details Date Type Department Care Team (Latest Contact Info) Description 12/03/2013 12:35 EDT - 12/03/2013 23:59 EDT Hospital Encounter [facility] [address] [place] [address] Unknown, Provider, MD Discharge Disposition: Home or [...] 1 Tab by mouth daily before breakfast. Sun[place]-3 Fatty Acids-Vitamin E (FISH OIL) 1,000 mg [...] Code Departure Means Destination Home or Self Senior Care documented in this encounter Plan of Treatment Not on file documented as of this encounter Visit Diagnoses Not on filedocumented in this encounter Care Teams Automotive Center Manager Relationship Specialty Start Date End Date Lizbet Zhang FNP [address] [place] [address] PCP - General 02/24/13 03/13/20 documented as of this encounter
--- OUTSIDE RECORDS SUMMARY | 2024-04-20 15:56 | XMS_ITS | Encounter Summary ---
Author Organization [facility] Address [address] [place] [address] Care Team Providers Care Repair Armature Winder Name Role Phone LeathaLizbet WELFARE ELIGIBILITY WORKER Primary Care Provider [phone] Encounter Details Date Type Department Care Team (Latest Contact Info) Description 12/15/2015 9:36 EDT - 12/15/2015 23:59 EDT Hospital Encounter [address] [address] Unknown, Provider, MD Discharge Disposition: Home or [...] 1 Tab by mouth daily before breakfast. [place]-3 Fatty Acids-Vitamin E (FISH OIL) 1,000 mg [...] on filedocumented in this encounter Care Teams Repair Armature Winder Relationship Specialty Start Date End Date Lizbet Zhang FNP [facility] [place] [address] PCP - General 02/24/13 03/13/20 documented as of this encounter
--- OUTSIDE RECORDS SUMMARY | 2024-04-20 15:56 | XMS_ITS | Encounter Summary ---
Author Organization [facility] Address [address] [place] [address] Care Team Providers Care Pipe Coverer Name Role Phone Salome Mcarthur BEAUTY SCHOOL INSTRUCTOR Primary Care Provider Encounter Details Date Type Department Care Team (Late st Contact Info) Description 01/17/2021 Lab Requisition [facility] Pathology [facility] - [facility] [address] [place], [place] [id number] Outr Resulting Lab, Provider Social History Tobacco [...] 211 - 911 pg/mL 01/17/2021 21:53 EDT [facility] Blood VENOUS BLOOD / Unknown 01/17/2021 12:56 EDT 01/17/2021 21:02 EDT us Provider Outr Resulting Lab CHEMISTRY & BLOOD GA S ORDERABLES Final Result [facility] [address] [place] [address] documented in this encounter Visit Diagnoses Not on filedocumented in this encounter Care Teams Pipe Coverer Relationship Specialty Start Date End Date Salome Mcarthur, BEAUTY SCHOOL INSTRUCTOR [address] [place] [address] PCP - General 03/14/20 documented as of this encounter
--- OUTSIDE RECORDS SUMMARY | 2024-04-20 15:56 | XMS_ITS | Encounter Summary ---
Author Organization [facility] Address [address] [place] [address] Care Team Providers Care Tool Machinist Name Role Phone Agustin Ramires MD Primary Care Provider [phone] Reason for Visit * Reason Onset Date Comments Fever 08/27/2011 Encounter Details Date Type Department Care Team (Late st Contact Info) Description 08/27/2011 Telephone [facility] Pelvic Medicine and Reconstructive Surgery - Medical Office [facility] [address] [place] [address] Tim Molina MD [address] [place] [phone] Fever Social History Tobacco Use Types [...] filedocumented in this encounter Care Teams Tool Machinist Relationship Specialty Start Date End Date Agustin Ramires MD [address],[facility] [address] [place] [address] PCP - General 08/20/11 02/23/13 documented as of this encounter
--- OUTSIDE RECORDS SUMMARY | 2024-04-20 15:56 | XMS_ITS | Encounter Summary ---
Author Organization [facility] Address [address] [place] [address] Care Team Providers Care Customer Technical Services Manager Name Role Phone Agustin Ramires MD Primary Care Provider [phone] Reason for Visit * Reason Comments Wound Infection Wound check Encounter Details Date Type Department Care Team (Late st Contact Info) Description 08/31/2011 13:30 EDT Nurse Only [facility] Pelvic Medicine and Reconstructive Surgery - Medical Office [facility] [address] [place] [address] Unknown, Provider, Tim Martínez MD [address] [place] [phone] Nurse, [facility] Mob Pelvic Med Social History Tobacco Use [...] as of this encounter Care Teams Customer Technical Services Manager Relationship Specialty Start Date End Date Agustin Ramires MD [facility] [address] [address] [place] [address] PCP - General 08/20/11 02/23/13 documented as of this encounter
--- OUTSIDE RECORDS SUMMARY | 2024-04-20 15:56 | XMS_ITS | Encounter Summary ---
Author Organization [facility] Address [address] [place] [address] Care Team Providers Care Quality Assurance Nurse Name Role Phone LeathaLizbet DEBEAKER Primary Care Provider [phone] Encounter Details Date Type Department Care Team (Latest Contact Info) Description 10/17/2017 12:36 EDT - 10/17/2017 23:59 EDT Hospital Encounter [facility] [address] [place] [address] Unknown, Provider, MD Discharge Disposition: Home or [...] 1 Tab by mouth daily before breakfast. [place]-3 Fatty Acids-Vitamin E (FISH OIL) 1,000 mg [...] Code Departure Means Destination Home or Self Intermediate documented in this encounter Plan of Treatment Not on file documented as of this encounter Visit Diagnoses Not on filedocumented in this encounter Care Teams Quality Assurance Nurse Relationship Specialty Start Date End Date Lizbet Zhang FNP [address] [place] [address] PCP - General 02/24/13 03/13/20 documented as of this encounter
--- OUTSIDE RECORDS SUMMARY | 2024-04-20 15:56 | XMS_ITS | Encounter Summary ---
Author Organization [facility] Address [address] [place] [address] Care Team Providers Care Table Games Manager Name Role Phone Lizbet Zhang Zoey FILTER OPERATOR Primary Care Provider [phone] Encounter Details Date Type Department Care Team (Late st Contact Info) Description 12/15/2015 Results Only [facility]- [facility] [phone] Sandra Ricci MD [address] [place] [phone] Social History Tobacco Use Types Packs/Day [...] ? MILKA MENDIETA ? Accession #: ? [id number] : ? 1940 (Age: 75) ??F ?Collect Date: ? 12/15/2015 Location: ? [facility] ? Receive Date: ? 12/16/2015 Provider: ? SANDRA RICCI MD Copy to: ?KRISTEN LOPEZ BAR FINISH OPERATOR ? CYTOLOGIC DIAGNOSIS: URINE, CATHETERIZATION, CYTOLOGIC EVALUATION: [...] cellular enhancement technique. ? End of Report [facility] 12/15/2015 12/16/2015 7:5 5 EDT us Sandra Ricci MD PATHOLOGY ORDERABLES Final Result [facility] [address] [place] [address] documented in this encounter Visit Diagnoses Not on filedocumented in this encounter Care Teams Table Games Manager Relationship Specialty Start Date End Date Lizbet Zhang FNP [address] [place] [address] PCP - General 02/24/13 03/13/20 documented as of this encounter
--- OUTSIDE RECORDS SUMMARY | 2024-04-20 15:56 | XMS_ITS | Encounter Summary ---
Author Organization [facility] Address [address] [place] [address] Care Team Providers Care Blueprint Engineer Name Role Phone Salome Mcarthur WASTEWATER ANALYST Primary Care Provider [phone] Encounter Details Date Type Department Care Team (Late st Contact Info) Description 09/20/2022 Documentation Visit [facility] - [address] [address] Kal Clark, PT [address] [place], [place] [id number] Social History Tobacco Use Types Packs/Day Years [...] Clark, PT - 09/20/2022 1049 EDT [facility] Outpatient Rehabilitation Services [phone] Physical Therapy Discharge Not Seen Recently Medical [...] on filedocumented in this encounter Care Teams Blueprint Engineer Relationship Specialty Start Date End Date Salome Mcarthur, JEIMY [address] [place] [address] PCP - General 03/14/20 documented as of this encounter
--- OUTSIDE RECORDS SUMMARY | 2024-04-20 15:56 | XMS_ITS | Encounter Summary ---
Author Organization [facility] Address [address] [place] [address] Care Team Providers Care Wellhead Pumper Name Role Phone Salome Mcarthur DEPUTY TREASURER Primary Care Provider [phone] Reason for Visit * Reason Comments Wound Check Encounter Details Date Type Department Care Team (Late st Contact Info) Description 03/22/2020 10:45 EST Nurse Only [facility] - [facility] [address] [facility], [place] [address] Nurse, [facility] Encounter for post surgical wound check [...] fibrin Drainage: scant serosanguineous Graft site: N/A [place] site: N/A Flap site: N/A PLAN: Wound [...] Primary documented in this encounter Care Teams Wellhead Pumper Relationship Specialty Start Date End Date Salome Mcarthur NP [address] [place] [address] PCP - General 03/14/20 documented as of this encounter
--- OUTSIDE RECORDS SUMMARY | 2024-04-20 15:57 | XMS_ITS | Encounter Summary ---
Author Organization [facility] Address [address] [place] [address] Care Team Providers Care Online Project Manager Name Role Phone Avel Rivera MD Primary Care Provider Unav ailable Encounter Details Date Type Department Care Team (Late st Contact Info) Description 03/30/2005 Before PRISM Converted Visit (Maple) [facility] - Maple conversion [address] [place] [address] Luis Fernando Kinsey MD [address] [place] [phone] Social History Tobacco Use Types Packs/Day Years Used Date Smoking Tobacco: Never Assessed Comments Unknown Sex and Gender Information Value Date Recorded Sex Assigned at Not on file Legal Sex Female 18:18 EST Gender Identity Female 02/14/2022 14:15 EST Sexual Orientation Not on file documented as of this encounter Progress Notes * Luis Fernando Kinsey - 06/09/20092105 EST [facility] PROGRESS/FOLLOWUP NOTE - 03/30/2005 REASON FOR [...] MD Luis Fernando Kinsey MD - Luis Frenando Kinsey MD A - clr Job ID: [id number] Document ID: [id number] cc: documented in this encounter Plan of Treatment Not on file documented as of this encounter Visit Diagnoses Not on filedocumented in this encounter Care Teams Online Project Manager Relationship Specialty Start Date End Date Avel Rivera MD PCP - General 09/03/08 07/10/09 documented as of this encounter
--- OUTSIDE RECORDS SUMMARY | 2024-04-20 15:57 | XMS_ITS | Encounter Summary ---
Author Organization [facility] Address [address] [place] [address] Care Team Providers Care Issue Clerk Name Role Phone Unavailable Primary Care Provider Unavailabl e Encounter Details Date Type Department Care Team (Latest Contact Info) Description 06/24/2008 23:22 EDT Hospital Encounter [facility] - Other [address] [place] [address] Anjel De La Torre MD Discharge Disposition: [...]
--- OUTSIDE RECORDS SUMMARY | 2024-04-20 15:57 | XMS_ITS | Encounter Summary ---
Author Organization [facility] Address [address] [place] [address] Care Team Providers Care Director Of Student Life Name Role Phone Unknown, Provider Primary Care Provider Agustin Anna MD Primary Care Provider [phone] Kayleigh Peña Primary Care Provider [phone] Agustin Ramires MD Primary Care Provider [phone] Lizbet ZhangP Primary Care Provider [phone] Encounter Details Date Type Department Care Team (Late st Contact Info) Description 09/19/2010 Historical Results Only [facility] [place] Main [address] [address] Leland Boykin MD Social History Tobacco Use [...] MILKA MENDIETA ?: [birth year] ?Age/Sex: 78/F ?Unit#: [id number] ? Loc: LAB.OPX ? Status: REG REF ?? Reg Date: 09/20/10 ? Pt.Phone Number: ? ----- ------- Specimen: [id number] ? STATUS: SOUT ?Spec Date:09/19/10 ? Physician Copies: ?Leland Boykin MD ?? Tissues: ? Urine (bladder) ? CPT: 45016 ?? Units: ??1 ----- ------- ?? NON TURFGRASS MANAGEMENT PROFESSOR CYTOLOGY DIAGNOSIS Urine,bladder: Benign urothelial cells. ----- ------- ? SPECIMEN DESCRIPTION ? 100ml clear yellow urine, 30ml proc, 1tp Signed ____(signature on file)____ Anjel De La Torre M.D. 09/21/10 ?? By the signature above, the attending physician certifies that he/she has personally conducted a gross and/or microscopic examination of the described specimens and rendered or confirmed the above diagnosis. Test Performed by [facility], [address] [facility] [address] Taxation Economist: Namrata Childs MD PHD ----- ------- us Leland Boykin MD PATHOLOGY ORDERABLES Final Resul t [facility] documented in this encounter Visit Diagnoses Not on filedocumented in this encounter Care Teams Director Of Student Life Relationship Specialty Start Date End Date Unknown, Provider, PCP - General 05/17/10 02/07/11 Agustin Ramires MD [address] [place] [phone] PCP - General 02/08/11 05/15/11 Kayleigh Peña PA [address] [place] [address] PCP - General 05/16/11 08/19/11 Agustin Ramires MD [address] [place] [phone] PCP - General 08/20/11 02/23/13 Lizbet Zhang FNP [address] [facility] [place] [phone] PCP - General 02/24/13 03/13/20 documented as of this encounter
--- OUTSIDE RECORDS SUMMARY | 2024-04-20 15:57 | XMS_ITS | Encounter Summary ---
Author Organization [facility] Address [address] [place] [address] Care Team Providers Care Lactation Specialist Name Role Phone Agustin Ramires MD Primary Care Provider [phone] Unknown, Provider Primary Care Provider Unava ilable Agustin Ramires MD Primary Care Provider [phone] Kayleigh Peña Primary Care Provider [phone] Agustin Ramires MD Primary Care Provider [phone] Lizbet Zhang TRIMMER HELPER Primary Care Provider [phone] Encounter Details Date Type Department Care Team (Late st Contact Info) Description 05/15/2010 Historical Results Only [facility] - Main [place] [address] [place], [place] [address] Jens Deleon MD [facility] [address] [place] [address] Social History Tobacco Use Types [...] MILKA MENDIETA ?: 42 ?Age/Sex: 78/F ?Unit#: [id number] ? Loc: END ? Status: DEP CLI ?? Reg Date: 05/15/10 ? Pt.Phone Number: ? ----- ------- Specimen: [id number] ?STATUS: SOUT ?Spec Date:05/15/10 ? Physician Copies: ?Jens Deleon MD ? Tissues: A ?? Gastrointestinal Tract (PROXIMAL ASCENDING COLON) ?Kayleigh PeñaMelida CPT: 39692 ?? Units: ??1 ?FINAL DIAGNOSIS ? Proximal [...] diagnosis. Test Performed by [facility], [address] [place] [address] Sound Assistant: Namrata Childs MD PHD ----- ------- us Jens Deleon MD PATHOLOGY ORDERABLES Final Resul t [facility] documented in this encounter Visit Diagnoses Not on filedocumented in this encounter Care Teams Lactation Specialist Relationship Specialty Start Date End Date Agustin Ramires MD [address] [phone] PCP - General 07/11/09 05/16/10 Unknown, MD Nkechi PCP - General 05/17/10 02/07/11 Agustin Ramires MD [address] [place] [phone] PCP - General 02/08/11 05/15/11 Kayleigh Peña PA [address] [place] [address] PCP - General 05/16/11 08/19/11 Agustin Ramires MD [address] [address] [place] [phone] PCP - General 08/20/11 02/23/13 Lizbet Zhang, INDIRA [address] [place], [place] [address] PCP - General 02/24/13 03/13/20 documented as of this encounter
--- OUTSIDE RECORDS SUMMARY | 2024-04-20 15:57 | XMS_ITS | Encounter Summary ---
Author Organization [facility] Address [address] [place] [address] Care Team Providers Care Nuclear Weapons Custodian Name Role Phone Agustin Ramires MD Primary Care Provider [phone] Encounter Details Date Type Department Care Team (Late st Contact Info) Description 04/21/2010 Abstract Used for ABSTRACTING Data [phone] Agustin Ramires MD [address] [place] [address] Social History Tobacco Use Types Packs/Day [...] on filedocumented in this encounter Care Teams Nuclear Weapons Custodian Relationship Specialty Start Date End Date Agustin Ramires MD [address] [place] [address] PCP - General 07/11/09 05/16/10 documented as of this encounter
--- OUTSIDE RECORDS SUMMARY | 2024-04-20 15:57 | XMS_ITS | Encounter Summary ---
Author Organization [facility] Address [address] [place] [address] Care Team Providers Care Shower Enclosure Installer Name Role Phone Unknown, Provider Primary Care Provider Agustin Anna MD Primary Care Provider [phone] Kayleigh Peña Primary Care Provider [phone] Agustin Ramires MD Primary Care Provider [phone] Lizbet ZhangP Primary Care Provider [phone] Encounter Details Date Type Department Care Team (Late st Contact Info) Description 07/17/2010 Historical Results Only [facility] - Main [address] [address] Leland Boykin MD Social History Tobacco Use [...] (07/17/2010) 07/17/2010 07/18/2010 9:3 2 EDT Narrative [facility] - 07/21/2010 15:57 EDT ----- ------- Name: MILKA MENDIETA ?: 42 ?Age/Sex: 78/F ?Unit#: [id number] ? Loc: LAB.OPX ? Status: REG REF ?? Reg Date: 07/17/10 ? Pt.Phone Number: ? ----- ------- Specimen: [id number] ? STATUS: SOUT ?Spec Date:07/17/10 ? Physician Copies: ?Leland Boykin MD ?? Tissues: ? Urine (CLEAN CATCH) ? CPT: 27881 ?? Units: ??1 ----- ------- ?? NON TRAFFIC REPRESENTATIVE CYTOLOGY DIAGNOSIS Urine,voided: ??Benign urothelial cells. ??Background [...] Test Performed by [facility], [address] [place] [address] [place] [address] Private Branch Exchange Service Adviser: Namrata Childs MD PHD ----- ------- us Leland Boykin MD PATHOLOGY ORDERABLES Final Resul t [facility] documented in this encounter Visit Diagnoses Not on filedocumented in this encounter Care Teams Shower Enclosure Installer Relationship Specialty Start Date End Date Unknown, Provider, PCP - General 05/17/10 02/07/11 Agustin Ramires MD [address] [address] [place] [phone] PCP - General 02/08/11 05/15/11 Kayleigh Peña PA [address] [facility] [address] [place] [address] PCP - General 05/16/11 08/19/11 Agustin Ramires MD [address] [address] [place] [address] PCP - General 08/20/11 02/23/13 Lizbet Zhang FNP [address] [facility] [place] [id number] PCP - General 02/24/13 03/13/20 documented as of this encounter
--- OUTSIDE RECORDS SUMMARY | 2024-04-20 15:57 | XMS_ITS | Encounter Summary ---
Author Organization [facility] Address [address] [place] [address] Care Team Providers Care Landscape Horticulture Instructor Name Role Phone Agustin Ramires MD Primary Care Provider [phone] Unknown, Provider Primary Care Provider Unava ilable Agustin Ramires MD Primary Care Provider [phone] Kayleigh Peña Primary Care Provider + [phone] Agustin Ramires MD Primary Care Provider [phone] Lizbet Zhang PIPING MANAGER Primary Care Provider + [phone] Encounter Details Date Type Department Care Team (Late st Contact Info) Description 03/08/2010 Historical Results Only [facility] [place] [address] [address] Leland Boykin MD Social History Tobacco Use [...] (03/08/2010) 03/08/2010 03/09/2010 10: 05 EST Narrative [facility] - 03/09/2010 14:09 EST ----- ------- Name: MILKA MENDIETA ?: 42 ?Age/Sex: 78/F ?Unit#: [id number] ? Loc: LAB.OPX ? Status: REG REF ?? Reg Date: 03/08/10 ? Pt.Phone Number: ? ----- ------- Specimen: [id number] ?STATUS: SOUT ?Spec Date:03/08/10 ? Physician Copies: ?Leland Boykin MD ?? Tissues: ? Urine (CLEAN CATCH URINE-VOIDED) ? CPT: 90045 ?? Units: ??1 ----- ------- ?? NON INVESTMENTS MANAGER CYTOLOGY DIAGNOSIS Urine, voided: - No [...] diagnosis. Test Performed by [facility], [address] [place] [address] Blast Furnace Keeper: Namrata Childs MD PHD ----- ------- Leland Boykin MD PATHOLOGY ORDERABLES Final Resul t [facility] documented in this encounter Visit Diagnoses Not on filedocumented in this encounter Care Teams Landscape Horticulture Instructor Relationship Specialty Start Date End Date Agustin Ramires MD [address] [address] [place] [address] PCP - General 07/11/09 05/16/10 Unknown, Provider, PCP - General 05/17/10 02/07/11 Agustin Ramires MD [address] [address] [place] [address] PCP - General 02/08/11 05/15/11 Kayleigh Peña PA [address] [facility] [address] [place] [address] PCP - General 05/16/11 08/19/11 Agustin Ramires MD [address] [address] [place] [address] PCP - General 08/20/11 02/23/13 Lizbet Zhang FNP [address] [place] [address] PCP - General 02/24/13 03/13/20 documented as of this encounter
--- OUTSIDE RECORDS SUMMARY | 2024-04-20 15:57 | XMS_ITS | Encounter Summary ---
Author Organization [facility] Address [address] [place] [address] Care Team Providers Care Glassware Verifier Name Role Phone Avel Rivera MD Primary Care Provider Unav ailable Encounter Details Date Type Department Care Team (Late st Contact Info) Description 07/28/2007 Before PRISM Converted Visit (Maple) [facility] [place] [facility] - Maple conversion [address] [place] [address] Sharifa Britton, PLACEMENT SECRETARY [address] [facility] [address] [place] [address] Social History Tobacco Use Types Packs/Day Years Used Date Smoking Tobacco: Never Assessed Comments Unknown Sex and Gender Information Value Date Recorded Sex Assigned at Not on file Legal Sex Female 18:18 EST Gender Identity Female 02/14/2022 14:15 EST Sexual Orientation Not on file documented as of this encounter Progress Notes * Sharifa Britton MD - 12/31/2008 0141 EDT [facility] PROGRESS/FOLLOWUP NOTE - 07/28/2007 ANA M Jarquin [...] 08/04/2007 14:52 INDIRA Cruz - INDIRA Cruz [facility] Job ID: [id number] Document ID: [id number] cc: documented in this encounter Plan of Treatment Not on file documented as of this encounter Visit Diagnoses Not on filedocumented in this encounter Care Teams Glassware Verifier Relationship Specialty Start Date End Date Avel Rivera MD PCP - General 09/03/08 07/10/09 documented as of this encounter
--- OUTSIDE RECORDS SUMMARY | 2024-04-20 15:57 | XMS_ITS | Encounter Summary ---
Author Organization [facility] Address [address] [place] [address] Care Team Providers Care Formstone Fitter Name Role Phone Avel Rivera MD Primary Care Provider Unav ailable Encounter Details Date Type Department Care Team (Late st Contact Info) Description 12/15/2007 Before PRISM Converted Visit (Maple) [facility] - Maple conversion [address] [place] [address] Avel Rivera MD Social History Tobacco Use Types Packs/Day Years Used Date Smoking Tobacco: Never Assessed Comments Unknown Sex and Gender Information Value Date Recorded Sex Assigned at Not on file Legal Sex Female 18:18 EST Gender Identity Female 02/14/2022 14:15 EST Sexual Orientation Not on file documented as of this encounter Progress Notes * Avel Rivera MD - 10/30/2008 0646 EDT [facility] PROGRESS/FOLLOWUP NOTE - 01/12/2008 PROBLEM Bronchitis, diabetes [...] 11:18 Avel Rivera MD P Job ID [id number] /[facility] Doc ID [id number] cc: * Avel Rivera MD - 10/30/2008 0513 EDT [facility] PROGRESS/FOLLOWUP NOTE - 12/15/2007 PROBLEM Cough. SUBJECTIVE [...] 17:31 Avel Rivera MD A Job ID [id number] A/[facility] Doc ID [id number] cc: documented in this encounter Plan of Treatment Not on file documented as of this encounter Visit Diagnoses Not on filedocumented in this encounter Care Teams Formstone Fitter Relationship Specialty Start Date End Date Avel Rivera MD PCP - General 09/03/08 07/10/09 documented as of this encounter
--- OUTSIDE RECORDS SUMMARY | 2024-04-20 15:57 | XMS_ITS | Encounter Summary ---
Author Organization [facility] Address [address] [place] [address] Care Team Providers Care Automatic Grinder Operator Name Role Phone Avel Rivera MD Primary Care Provider Unav ailable Encounter Details Date Type Department Care Team (Late st Contact Info) Description 06/24/2008 Before PRISM Converted Visit (Maple) [facility] - Maple conversion [address] [place] [address] Dhruv Milian MD Social History Tobacco Use [...] MENDIETA, MILKA F ? Accession #: ? [id number] ? : ? 1940 (Age: 68) ??F ? Collect Date: ? 06/24/2008 ? Location: ? [facility] ? Receive Date: ? 06/24/2008 ? Provider: DHRUV MILIAN MD ? Copy to: CRYSTAL RATLIFF MD ? Final Pathologic Diagnosis: ? A. ??Bladder, base of previous tumor, biopsies ([facility] [id number] A D1-D2; ? 2008): ? 1. 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 dystrophic calcification and reactive change. See comment. ? 2. ? Muscularis propria is identified. ? B. ?? Bladder, inferior to main tumor, biopsy ([facility] [id number]; B D1-D2; ? 2008) ? 1. ?? Urothelial hyperplasia with chronic inflammation and reactive ? epithelial changes. ??See ? comment. ? 2. ?? Muscularis propria is identified. ? C. ?Bladder, tumor, resection ([place] [id number]; 03/19/2008): ? 1. ?? Low grade papillary [...] diagnosis. ? Specimen(s) Received: ? OSLP [facility] [id number] (4), [id number] (1) ? Clinical History: ? Bladder cancer ? Gross Description: ? Five slides are received for review from [facility], one each labelled [id number] A D1, [id number] A D2, [id number] B D1, [id number] B D2, ? [id number]. ? End of Report ? [facility] 06/24/2008 06/24/2008 14: 46 EDT us Dhruv Milian MD PATHOLOGY ORDERABLES Final Resul t Performing Organization Address City/State/[facility] Co de Phone Number [facility] MARTINE[facility] [address] [place] [address] documented in this encounter Visit Diagnoses Not on filedocumented in this encounter Care Teams Automatic Grinder Operator Relationship Specialty Start Date End Date Avel Rivera MD PCP - General 09/03/08 07/10/09 documented as of this encounter
--- OUTSIDE RECORDS SUMMARY | 2024-04-20 15:57 | XMS_ITS ---
Author Organization Unknown Address [address] [place] [address] [phone] Phone Care Team Providers Care Beam Builder Name Role Phone KATHIE ARTEAGA MD Attending Unavailable SALLIE DENISE MD ER Unavailable JOHN PETERSON Primary Unavailable Results TSH THYROID STIMULATING HORM ONE - Collect Date/Time: 10/03/2020 14:03 [facility] ID: [id number] [address] [place] [address], [address] LOINC: 3014-8 Test Value Unit Reference Range Code Code System Flag TSH 1.863 uIU/mL L=0.360 H=3.740 3014-8 LOINC TROPONIN-I ADM. - Collect Da te/Time: 10/03/2020 14:03 [facility] ID: [id number] [address] [place] [address], [address] LOINC: 16407-3 Test Value Unit Reference Range Code Code System Flag TROPONIN-I < 0.017 ng/mL L=0.000 H=0.060 10165-3 LOINC COMPREHENSIVE METABOLIC PANE L (CMP) - Collect Date/Time: 10/03/2020 14:03 [facility] ID: [id number] [address] [place] [address], [address] LOINC: 61823-3 Test Value Unit Reference Range Code Code [...] H=34 2028-9 LOINC ANION GAP 8.8 mmol/L 69439-1 LOINC CALCIUM SERUM 9.6 mg/dL L=8.2 H=10.2 98140-3 LOINC BILIRUBIN TOTAL 0.6 mg/dL L=0.0 H=1.3 1975-2 LOINC ALK. PHOS. 87 U/L L=46 H=116 6768-6 LOINC SGOT (AST) 22 U/L L=15 H=37 1920-8 LOINC SGPT (ALT) 33 U/L L=12 H=78 1742-6 LOINC TOTAL PROTEIN 7.3 gm/dL L=6.0 H=8.0 2885-2 LOINC ALBUMIN 3.9 gm/dL L=3.4 H=5.0 1751-7 LOINC AGE 80 years eGFR (non-Afr.Amer.) 76 mL/min 57372-8 LOINC eGFR (Afr-Iranian) 92 mL/min 74745-9 LOINC CBC W/ DIFFERENTIAL - Collec t Date/Time: 10/03/2020 14:03 [facility] ID: [id number] [address] [place], [place], [address] LOINC: 54431-0 Test Value Unit Reference Range Code Code [...] D Saturday, October 03, 2020 2:42:30 PM 306950 [id number] Electronically Reviewed and Signed By: DYLAN SHER M.D. RADIOLOGIST 10/05/20 08:11 Copy for: SALLIE DENISE MD via modem Copy for: KATHIE ARTEAGA MD via modem DISCHARGED Social History Type Status Start Date End Date Code Code Syst em Smoking History Never smoker (Never Smoked) 536569820 SNOMED CT Sex Female Medications Medication Start Date End Date Route Frequency Dose Code Code System Medication Instructions Home Meds Amitriptyline 50MG Oral Tablet 08/20/2019 01/02/2022 ORAL BEDTIME 50 MILLIGRAMS 840851 RxNorm TAKE 50 MILLIGRAMS ORAL BEDTIME Atorvastatin Calcium 20MG Oral Tablet 08/20/2019 Unknown ORAL BEDTIME 20 MILLIGRAMS 414000 RxNorm TAKE 20 MILLIGRAMS ORAL BEDTIME Fish Oil 1000MG Oral Capsule, Liquid Filled 08/20/2019 03/18/2024 ORAL DAILY 3 CAPSULE 408703 RxNorm TA KE 3 CAPSULE ORAL DAILY Gabapentin 800MG Oral Tablet 08/20/2019 03/18/2024 ORAL TWICE A DAY 1 TABLET 863965 RxNorm TAKE 1 TABLET ORAL TWICE A DAY Lisinopril 20MG Oral Tablet 08/20/2019 03/18/2024 ORAL DAILY 20 MILLIGRAMS 787289 RxNorm TAKE 20 MILLIGRAMS ORAL DAILY Loratadine 10MG Oral Tablet 08/20/2019 01/02/2022 ORAL DAILY 10 MILLIGRAMS 303657 RxNorm TAKE 10 MILLIGRAMS ORAL DAILY Multiple Vitamin Formula Oral Tablet 08/20/2019 03/18/2024 ORAL DAILY 1 unit(s) 1582693 RxNorm TAKE 1 E ACH ORAL DAILY Pramipexole Dihydrochlorid e 0.125MG Oral Tablet 08/20/2019 09/30/2023 ORAL BEDTIME 2 TABLET 255016 RxNorm TAKE 2 TABLET ORAL BEDTIME Probiotic 250MG Oral Capsule 08/20/2019 01/02/2022 ORAL DAILY 3 TABLET 745711 RxNorm TAKE 3 TABLET ORAL DAILY glipiZIDE 10MG Oral Tablet, Extended Release 08/20/2019 Unknown ORAL DAILY 10 MILLIGRAMS 660753 RxNorm TAKE 10 MILLIGRAMS ORAL DAILY metFORMIN HCl 1000MG Oral Tablet 08/20/2019 Unknown ORAL TWICE A DAY WITH FOOD 1000 MILLIGRAMS 046293 RxNorm TAKE 1000 MILLIGRAMS ORAL TWICE A DAY WITH FOOD Cephalexin 500MG Oral Tablet 08/20/2019 01/02/2022 ORAL THREE TIMES A DAY 1 TABLET 304684 RxNorm TAKE 1 TABLET ORAL THREE TIMES A DAY Keflex 500MG Oral Capsule 01/02/2022 09/30/2023 ORAL THREE TIMES A DAY 1 CAPSULE 722206 RxNorm TAKE 1 CAPSULE ORAL THREE TIMES A DAY Nystatin 313162N/1ML Oral Suspension 01/02/2022 09/30/2023 ORAL FOUR TIMES A DAY 5 mL 148824 RxNorm TAKE 5 mL ORAL FOUR TIMES A DAY Cephalexin 500MG Oral Tablet 03/17/2024 03/19/2024 ORAL TWICE A DAY 1 TABLET 963893 RxNorm TAKE 1 TABLET ORAL TWICE A DAY x 7 days Acetaminophen 500MG Oral Tablet 03/18/2024 03/18/2024 ORAL NEEDED EVERY 6 HOURS 2 TABLET 029039 RxNorm TAKE 2 TABLET (OR 3 TABLETS regular strength 325mg) ORAL EVERY 6 HOURS FOR 1-2 DAYS THEN NEEDED FOR Fever/Pain (NEXT DOSES 6AM AND 12 NOON) Ibuprofen 200MG Oral Tablet 03/18/2024 03/18/2024 ORAL EVERY 6 HOURS 2 TABLET 801049 RxNorm TAKE 2 TABLET ORAL EVERY 6 HOURS FOR 24 HOURS THEN NEEDED. (NEXT DOSES at 4AM AND 10AM) Aspirin 81MG Oral Tablet, Enteric Coated 03/19/2024 Unknown ORAL DAILY 81 MILLIGRAMS 716224 RxNorm TAKE 81 MILLIGRAMS ORAL DAILY Carvedilol 6.25MG Oral Tablet 03/19/2024 Unknown ORAL TWICE A DAY 6.25 MILLIGRAMS 138251 RxNorm TAKE 6.25 MILLIGRAMS ORAL TWICE A DAY Fish Oil Walton-3 1000 MG Oral Capsule, Liquid Filled 03/19/2024 Unknown ORAL DAILY 1000 MG RxNorm TAKE 10 00 MG ORAL DAILY Gabapentin 600MG Oral Tablet 03/19/2024 Unknown ORAL TWICE A DAY 600 MILLIGRAMS 926574 RxNorm TAKE 600 MILLIGRAMS ORAL TWICE A DAY Lisinopril 10MG Oral Tablet 03/19/2024 Unknown ORAL DAILY 10 MILLIGRAMS 734559 RxNorm TAKE 10 MILLIGRAMS ORAL DAILY Multiple [...] Tablet 03/19/2024 Unknown ORAL BEDTIME 0.5 MILLIGRAMS 857292 RxNorm TAKE 0.5 MILLIGRAMS ORAL BEDTIME Ventolin HFA 0.09MG/1Actuat ion Inhalation Suspension 03/19/2024 Unknown INHAL ATION NEEDED EVERY 4 HOURS 2 unit(s) 312735 RxNorm 2 EACH INHALATION NEEDED EVERY 4 HOURS Victoza 6MG/1ML Subcutaneous Solution 03/19/2024 Unknown SUBCU TANEO US 1.8 MILLILITERS 358544 RxNorm INJECT 1.8 MILLILITERS SUBCUTANEOU S Cefdinir [...] Code Code System URINARY TRACT INFECTION active 419124 05 SNOMED-CT HYPOTENSION active 87049310 SNOMED-C T HYPOKALEMIA active 92460016 SNOMED-C T SEPSIS active 36969069 SNOMED-CT CIRRHOSIS - NON-ALCOHOLIC 01/02/2022 resolved 266 005212 SNOMED-CT HTN 08/20/2019 resolved 27993699 SNOMED-CT HIGH CHOLESTEROL 10/01/2023 resolved 45591177 SN OMED-CT PERSONAL HISTORY OF BLADDER CA 08/20/2019 resolved 632274796 SNOMED-CT NON-INSULIN DEPENDENT DIABETES MELLITUS 08/20/2019 resolved 09928399 SNOMED-CT 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 484756437 SNOMED-CT Allergies and Adverse Reactions Allergy Substance Reaction Severity Start Date Concern Status Co de Code System CODEINE Active 2226 RxNorm Plan of Treatment PFT COMPLETE W [...]
--- OUTSIDE RECORDS SUMMARY | 2024-04-20 15:57 | XMS_ITS | Encounter Summary ---
Author Organization [facility] Address [address] [place] [address] Care Team Providers Care Skin Piler Name Role Phone Avel Rivera MD Primary [...] Info) Description 06/06/2009 13:30 EST Office Visit [facility] [place] [facility] [address] [address] Avel Rivera MD Vertigo; Hypertension; DM (diabetes mellitus) (CMS-HCC) ([facility]); Hyperlipidemia; Lumbar sprain and strain Social History [...] Avel Rivera MD - 06/08/2009 0710 EST [facility] PROGRESS/FOLLOWUP NOTE - 06/06/2009 PROBLEM: Vertigo, hypertension, [...] - KATERIN Job ID: SM Doc ID: [id number] Ext Doc ID: [id number] cc: * Avel Rivera MD - 06/06/2009 [...] Hypertension Unspecified essential hypertension DM (diabetes mellitus) ([facility]) Type II or unspecified type diabetes [...] documented as of this encounter Care Teams Skin Piler Relationship Specialty Start Date End Date Avel Rivera MD PCP - General 09/03/08 07/10/09 documented as of this encounter
--- OUTSIDE RECORDS SUMMARY | 2024-04-20 15:57 | XMS_ITS | Encounter Summary ---
Author Organization [facility] Address [address] [place] [address] Care Team Providers Care Laborer Marine Terminal Name Role Phone Avel Rivera MD Primary Care Provider Unav ailable Encounter Details Date Type Department Care Team (Late st Contact Info) Description 12/12/2005 Before PRISM Converted Visit (Maple) [facility] - Maple conversion [address] [place] [address] Tiara Mendez MD [phone] [place] [address] Social History Tobacco Use Types Packs/Day Years Used Date Smoking Tobacco: Never Assessed Comments Unknown Sex and Gender Information Value Date Recorded Sex Assigned at Not on file Legal Sex Female 18:18 EST Gender Identity Female 02/14/2022 14:15 EST Sexual Orientation Not on file documented as of this encounter Progress Notes * Tad, Conv Supervisor Respiratory - 04/14/2009 0817 EST [facility] [...] Mendez MD P - prs Job ID: [id number] Document ID: [id number] cc: - Tiara Mendez MD P - prs Job ID: [id number] Document ID: [id number] cc: documented in this encounter Plan of Treatment Not on file documented as of this encounter Visit Diagnoses Not on filedocumented in this encounter Care Teams Laborer Marine Terminal Relationship Specialty Start Date End Date Avel Rivera MD PCP - General 5/29/09 4/4/10 documented as of this encounter
--- OUTSIDE RECORDS SUMMARY | 2024-04-20 15:57 | XMS_ITS | Encounter Summary ---
Author Organization [facility] Address [address] [place] [address] Care Team Providers Care Upholstery Cutter Name Role Phone vAel Rivera MD Primary Care Provider Unav ailable Encounter Details Date Type Department Care Team (Late st Contact Info) Description 05/22/2007 Before PRISM Converted Visit (Maple) [facility] - Maple conversion [address] [place] [address] Tiara Mendez MD [phone] [place] [address] Social History Tobacco Use Types Packs/Day Years Used Date Smoking Tobacco: Never Assessed Comments Unknown Sex and Gender Information Value Date Recorded Sex Assigned at Not on file Legal Sex Female 18:18 EST Gender Identity Female 02/14/2022 14:15 EST Sexual Orientation Not on file documented as of this encounter Progress Notes * Tad, Conv Finance Executive - 02/16/[address] [facility] PROGRESS/FOLLOWUP NOTE - 05/22/2007 ANA M [...] 08:15 Tiara Mendez MD P Job ID [id number] Sharron/[facility] Doc ID [id number] cc: documented in this encounter Plan of Treatment Not on file documented as of this encounter Visit Diagnoses Not on filedocumented in this encounter Care Teams Upholstery Cutter Relationship Specialty Start Date End Date Avel Rivera MD PCP - General 09/03/08 07/10/09 documented as of this encounter
--- OUTSIDE RECORDS SUMMARY | 2024-04-20 15:57 | XMS_ITS | Encounter Summary ---
Author Organization [facility] Address [address] [place] [address] Care Team Providers Care Rotary Engine Assembler Name Role Phone Agustin Ramires MD Primary Care Provider [phone] Unknown, Provider Primary Care Provider Unava ilable Agustin Ramires MD Primary Care Provider [phone] Kayleigh Peña Primary Care Provider [phone] Agustin Ramires MD Primary Care Provider [phone] Lizbet Zhang HR DIRECTOR Primary Care Provider + [phone] Encounter Details Date Type Department Care Team (Late st Contact Info) Description 11/09/2009 Historical Results Only [facility] Lab - Main [address] [address] Leland Boykin MD Social History Tobacco Use [...] (11/09/2009) 11/09/2009 11/09/2009 17: 51 EDT Narrative [facility] - 11/10/2009 13:18 EDT ----- ------- Name: MILKA MENDIETA ?: 42 ?Age/Sex: 78/F ?Unit#: [id number] ? Loc: LAB.OPX ? Status: REG REF ?? Reg Date: 11/09/09 ? Pt.Phone Number: ? ----- ------- Specimen: [id number] ? STATUS: SOUT ?Spec Date:11/09/09 ? Physician Copies: ?Leland Boykin MD ?? Tissues: ? Urine (CLEAN CATCH) ? CPT: 55150 ?? Units: ??1 ----- ------- ?? NON COLUMNIST/COMMENTATOR CYTOLOGY DIAGNOSIS URINE, VOIDED Benign urothelial cells. [...] Test Performed by [facility], [address] [facility] [place] [address] Silver Holloware Assembler: Namrata Childs MD PHD ----- ------- us Leland Boykin MD PATHOLOGY ORDERABLES Final Resul t [facility] documented in this encounter Visit Diagnoses Not on filedocumented in this encounter Care Teams Rotary Engine Assembler Relationship Specialty Start Date End Date Agustin Ramires MD [address] [address] [place] [address] PCP - General 07/11/09 05/16/10 Unknown, Provider, PCP - General 05/17/10 02/07/11 Agustin Ramires MD [address] [address] [place] [address] PCP - General 02/08/11 05/15/11 Kayleigh Peña PA [address] [facility] [address] [place] [address] PCP - General 05/16/11 08/19/11 Agustin Ramires MD [address] [address] [place] [address] PCP - General 08/20/11 02/23/13 Lizbet Zhang FNP [address] [facility] [place] [address] PCP - General 02/24/13 03/13/20 documented as of this encounter
--- OUTSIDE RECORDS SUMMARY | 2024-04-20 15:57 | XMS_ITS | Encounter Summary ---
Author Organization [facility] Address [address] [place] [address] Care Team Providers Care Hvac Commercial Salesperson Name Role Phone Avel Rivera MD Primary Care Provider Unav ailable Encounter Details Date Type Department Care Team (Late st Contact Info) Description 03/14/2006 Before PRISM Converted Visit (Maple) [facility] - Maple conversion [address] [place] [address] Tiara Mendez MD [phone] [place] [address] Social History Tobacco Use Types Packs/Day Years Used Date Smoking Tobacco: Never Assessed Comments Unknown Sex and Gender Information Value Date Recorded Sex Assigned at Not on file Legal Sex Female 18:18 EST Gender Identity Female 02/14/2022 14:15 EST Sexual Orientation Not on file documented as of this encounter Progress Notes * Tad, Conv Health And Safety Director - 04/25/2009 0014 EST [facility] PROGRESS/FOLLOWUP NOTE - 04/04/2006 Milka is here [...] Mendez MD P - sa Job ID: [id number] Document ID: [id number] * Alison Mishra Health And Safety Director - 04/24/20091955 EST [facility] PROGRESS/FOLLOWUP NOTE - 03/14/2006 SUBJECTIVE: comes in [...] MD 03/25/2006 10:56 Luke Dukes MD Tiara Menedz MD - Tiara Mendez MD P - clr Job ID: [id number] Document ID: [id number] cc: documented in this encounter Plan of Treatment Not on file documented as of this encounter Visit Diagnoses Not on filedocumented in this encounter Care Teams Hvac Commercial Salesperson Relationship Specialty Start Date End Date Avel Rivera MD PCP - General 09/03/08 07/10/09 documented as of this encounter
--- OUTSIDE RECORDS SUMMARY | 2024-04-20 15:57 | XMS_ITS | Encounter Summary ---
Author Organization [facility] Address [address] [place] [address] Care Team Providers Care Biometrics Specialist Name Role Phone Agustin Ramires MD Primary Care Provider [phone] Unknown, Provider Primary Care Provider Unava ilable Agustin Ramires MD Primary Care Provider [phone] Kayleigh Peña Primary Care Provider [phone] Agustin Ramires MD Primary Care Provider [phone] Lizbet Zhang LIVESTOCK BREEDER Primary Care Provider + [phone] Encounter Details Date Type Department Care Team (Late st Contact Info) Description 08/12/[address] [facility] Lab - Main [address] [address] Leland Boykin MD Social History Tobacco Use [...] (08/12/2009) 08/12/2009 08/14/2009 7:5 2 EDT Narrative [facility] - 08/16/2009 12:46 EDT ----- ------- Name: MILKA MENDIETA ?: 42 ?Age/Sex: 78/F ?Unit#: [id number] ? Loc: LAB.OPX ? Status: REG REF ?? Reg Date: 08/12/09 ? Pt.Phone Number: ? ----- ------- Specimen: [id number] ? STATUS: SOUT ?Spec Date:08/12/09 ? Physician Copies: ?Leland Boykin MD ?? Tissues: ? Urine (VOID) ? CPT: 45815 ?? Units: ??1 ----- ------- ?? NON CEMENT MASON HELPER CYTOLOGY DIAGNOSIS Urine, voided: - No malignant [...] above diagnosis. Test Performed by [facility], [address] [place] [address] Director: Namrata Childs MD PHD ----- ------- Leland Boykin MD PATHOLOGY ORDERABLES Final Resul t [facility] documented in this encounter Visit Diagnoses Not on filedocumented in this encounter Care Teams Biometrics Specialist Relationship Specialty Start Date End Date Agustin Ramires MD [address] [address] [place] [address] PCP - General 07/11/09 05/16/10 Unknown, Provider, PCP - General 05/17/10 02/07/11 Agustin Ramires MD [facility] [address] [address] [place] [address] PCP - General 02/08/11 05/15/11 Kayleigh Peña PA [address] [facility] [address] [place] [address] PCP - General 05/16/11 08/19/11 Agustin Ramires MD [facility] [address] ,[facility] [address] [place] [address] PCP - General 08/20/11 02/23/13 Lizbet Zhang FNP [address] [place] [address] PCP - General 02/24/13 03/13/20 documented as of this encounter
--- OUTSIDE RECORDS SUMMARY | 2024-04-20 15:57 | XMS_ITS | Encounter Summary ---
Author Organization [facility] Address [address] [place] [address] Care Team Providers Care Janitor Head Name Role Phone Avel Rivera MD Primary Care Provider Unav ailable Encounter Details Date Type Department Care Team (Late st Contact Info) Description 05/06/2007 Before PRISM Converted Visit (Maple) [facility] - Maple conversion [address] [place] [address] Maria Elena Falcon MD Social History Tobacco [...] Elena Falcon MD - 02/15/2009 0659 EST [facility] PROGRESS/FOLLOWUP NOTE - 05/06/2007 ANA M [...] Maria Elena Falcon MD P Job ID [id number] T: 7:21 A/KAMALA Doc ID [id number] cc: ctd/kamala Doc ID [id number] cc: documented in this encounter Plan of Treatment Not on file documented as of this encounter Visit Diagnoses Not on filedocumented in this encounter Care Teams Janitor Head Relationship Specialty Start Date End Date Avel Rivera MD PCP - General 09/03/08 07/10/09 documented as of this encounter
--- OUTSIDE RECORDS SUMMARY | 2024-04-20 15:57 | XMS_ITS | Encounter Summary ---
Author Organization [facility] Address [address] [place] [address] Care Team Providers Care Lot Boss Name Role Phone Agustin Ramires MD Primary Care Provider [phone] Avel Rivera MD Primary Care Provider Unav ailable Unknown, Provider Primary Care Provider Unava ilable Agustin Ramires MD Primary Care Provider [phone] Kayleigh Peña Primary Care Provider [phone] Agustin Ramires MD Primary Care Provider [phone] Lizbet Zhang ENERGY DERIVATIVES TRADER Primary Care Provider + [phone] Encounter Details Date Type Department Care Team (Late st Contact Info) Description 04/29/2009 Historical Results Only [facility] Lab - Main [place] [address] [place] [address] Leland Boykin MD Social History Tobacco Use [...] (04/29/2009) 04/29/2009 05/02/2009 10: 03 EST Narrative [facility] - 05/03/2009 9:10 EST ----- ------- Name: MILKA MENDIETA ?: 42 ?Age/Sex: 78/F ?Unit#: [id number] ? Loc: LAB.OPX ? Status: REG REF ?? Reg Date: 04/29/09 ? Pt.Phone Number: ? ----- ------- Specimen: [id number] ?STATUS: SOUT ?Spec Date:04/29/09 ? Physician Copies: ?Leland Boykin MD ?? Tissues: ? Urine (CLEAN CATCH) ? CPT: 48740 ?? Units: ??1 ----- ------- ?? NON GERIATRIC PSYCHIATRIST CYTOLOGY DIAGNOSIS Urine,voided: Benign squamous cells and [...] Test Performed by [facility], [address] [place] [address] Energy Administrator: Namrata Childs MD PHD ----- ------- Leland Boykin MD PATHOLOGY ORDERABLES Final Resul t [facility] documented in this encounter Visit Diagnoses Not on filedocumented in this encounter Care Teams Lot Boss Relationship Specialty Start Date End Date Agustin Ramires MD [address] [address] PCP - General 07/11/09 05/16/10 Avel Rivera MD PCP - General 09/03/08 07/10/09 Deandre, MD Nkechi PCP - General 05/17/10 02/07/11 Agustin Ramires MD [address] [address] PCP - General 02/08/11 05/15/11 Kayleigh Peña PA [address] [facility] [address] [place] [address] PCP - General 05/16/11 08/19/11 Agustin Ramires MD [facility] [address] [address] PCP - General 08/20/11 02/23/13 Lizbet Zhang FNP [address] [place], [place] [id number] PCP - General 02/24/13 03/13/20 documented as of this encounter
--- OUTSIDE RECORDS SUMMARY | 2024-04-20 15:57 | XMS_ITS | Encounter Summary ---
Author Organization [facility] Address [address] [place] [address] Care Team Providers Care Electronic Component Processor Name Role Phone Avel Rivera MD Primary Care Provider Unav ailable Encounter Details Date Type Department Care Team (Late st Contact Info) Description 11/05/2007 Before PRISM Converted Visit (Maple) [facility] - Maple conversion [address] [place] [address] Avel Rivera MD Social History Tobacco Use Types Packs/Day Years Used Date Smoking Tobacco: Never Assessed Comments Unknown Sex and Gender Information Value Date Recorded Sex Assigned at Not on file Legal Sex Female 18:18 EST Gender Identity Female 02/14/2022 14:15 EST Sexual Orientation Not on file documented as of this encounter Progress Notes * Avel Rivera MD - 01/07/[address] [facility] PROGRESS/FOLLOWUP NOTE - 11/05/2007 PROBLEM Foot pain. [...] 12:03 Avel Rivera MD P Job ID [id number] P/FELY Doc ID [id number] cc: cc: documented in this encounter Plan of Treatment Not on file documented as of this encounter Visit Diagnoses Not on filedocumented in this encounter Care Teams Electronic Component Processor Relationship Specialty Start Date End Date Avel Rivera MD PCP - General 09/03/08 07/10/09 documented as of this encounter
--- OUTSIDE RECORDS SUMMARY | 2024-04-20 15:57 | XMS_ITS | Encounter Summary ---
Author Organization [facility] Address [address] [place] [address] Care Team Providers Care Milk Powder Grinder Name Role Phone Avel Rivera MD Primary Care Provider Unav ailable Encounter Details Date Type Department Care Team (Late st Contact Info) Description 08/27/2007 Office Visit [facility] [place] [address] [place] [address] Tamica Maldonado MD [address] [place] [address] Discharge Disposition: Auto Discharge Social History [...] - 12/30/2008 0122 EDT DIVISION OF OPHTHALMOLOGY [facility] CONSULTATION - 08/27/2007 Adi Martinez MD [address] [place] [address] [address] [place] [address] Dear Adi: Thank you for referring Milka [...] with today.Because Ms. Corbett comes from the [facility], she has asked if she may follow up with you following the laser and I think this is very reasonable.If you have any questions or concerns, please do not hesitate to contact me. Yours sincerely, Signed by Tamica Maldonado MD 09/04/2007 08:58 Tamica Maldonado MD [facility] - [facility] Vitre[facility] Service [address] [place] [address] - Tamica Maldonado MD - DV Job ID: [id number] Doc ID: [id number] cc: Adi Martinez MD documented in this encounter Plan of Treatment Not on file documented as of this encounter Visit Diagnoses Not on filedocumented in this encounter Care Teams Milk Powder Grinder Relationship Specialty Start Date End Date Avel Rivera MD PCP - General 09/03/08 07/10/09 documented as of this encounter
--- OUTSIDE RECORDS SUMMARY | 2024-04-20 15:57 | XMS_ITS | Encounter Summary ---
Author Organization [facility] Address [address] [place] [address] Care Team Providers Care Contract Administration Manager Name Role Phone Avel Rivera MD Primary Care Provider Unav ailable Reason for Visit * Reason Onset Date Comments Other 05/18/2009 Encounter Details Date Type Department Care Team (Late st Contact Info) Description 05/18/[address] [id number] Avel Rivera MD Other Social History Tobacco [...] was sent in. She is checking with [facility].. * Telephone Encounter - Janusz Stefany - 05/18/2009 1310 EST PATIENT IS STILL WAITING FOR THIS TO BE CALLED INTO [facility]. THEY ARE THERE WAITING NOW FOR THE AMITRIPTYLENE. * Telephone Encounter - Christina Rudd - 05/18/2009 1214 EST Pt called from [facility] [facility]. saying her Amitriptyline has not been called in there. She can be reached at [phone] ext [phone]. documented in this encounter Plan of Treatment Not on file documented as of this encounter Visit Diagnoses Not on filedocumented in this encounter Discontinued Medications Medication Sig Discontinue Reason Start Date End Da te amitriptyline (ELAVIL) 100 mg tablet Take 1 Tab by mouth at bedtime. Reorder 05/04/2009 05/18/2009 documented as of this encounter Care Teams Contract Administration Manager Relationship Specialty Start Date End Date Avel Rivera MD PCP - General 09/03/08 07/10/09 documented as of this encounter
--- OUTSIDE RECORDS SUMMARY | 2024-04-20 15:57 | XMS_ITS | Encounter Summary ---
Author Organization [facility] Address [address] [place] [address] Care Team Providers Care Turbine Room Attendant Name Role Phone Avel Rivera MD Primary Care Provider Unav ailable Encounter Details Date Type Department Care Team (Late st Contact Info) Description 01/27/2007 Before PRISM Converted Visit (Maple) [facility] - Maple conversion [address] [place] [address] Tiara Mendez MD [phone] [place] [address] Social History Tobacco Use Types Packs/Day Years Used Date Smoking Tobacco: Never Assessed Comments Unknown Sex and Gender Information Value Date Recorded Sex Assigned at Not on file Legal Sex Female 18:18 EST Gender Identity Female 02/14/2022 14:15 EST Sexual Orientation Not on file documented as of this encounter Progress Notes * Tad, Conv Aboriginal Home School Liaison Officer - 02/15/20091955 EST [facility] PROGRESS/FOLLOWUP NOTE - 01/27/2007 ANA M [...] 15:02 Tiara Mendez MD P Job ID [id number] T: 12:49 P/jg Doc ID [id number] cc: Tiara Mendez MD P Job ID [id number] P/jg Doc ID [id number] cc: documented in this encounter Plan of Treatment Not on file documented as of this encounter Visit Diagnoses Not on filedocumented in this encounter Care Teams Turbine Room Attendant Relationship Specialty Start Date End Date Avel Rivera MD PCP - General 09/03/08 07/10/09 documented as of this encounter
--- OUTSIDE RECORDS SUMMARY | 2024-04-20 15:57 | XMS_ITS | Encounter Summary ---
Author Organization [facility] Address [address] [place] [address] Care Team Providers Care Mechanical Estimator Name Role Phone Avel Rivera MD Primary Care Provider Unav ailable Encounter Details Date Type Department Care Team (Late st Contact Info) Description 06/02/2007 Before PRISM Converted Visit (Maple) [facility] - Maple conversion [address] [place] [address] Tiara Mendez MD [phone] [place] [address] Social History Tobacco Use Types Packs/Day Years Used Date Smoking Tobacco: Never Assessed Comments Unknown Sex and Gender Information Value Date Recorded Sex Assigned at Not on file Legal Sex Female 18:18 EST Gender Identity Female 02/14/2022 14:15 EST Sexual Orientation Not on file documented as of this encounter Progress Notes * Tad, Conv Retail District Manager - 12/29/2008 1349 EDT [facility] PROGRESS/FOLLOWUP NOTE - 06/02/2007 SUBJECTIVE comes [...] 11:10 Tiara Mendez MD P Job ID [id number] T: 1:22 P/DIS Doc ID [id number] cc: P Job ID [id number] P/dis Doc ID [id number] cc: documented in this encounter Plan of Treatment Not on file documented as of this encounter Visit Diagnoses Not on filedocumented in this encounter Care Teams Mechanical Estimator Relationship Specialty Start Date End Date Avel Rivera MD PCP - General 09/03/08 07/10/09 documented as of this encounter
--- OUTSIDE RECORDS SUMMARY | 2024-04-20 15:57 | XMS_ITS ---
Author Organization Unknown Address [address] [place] [phone] Phone Care Team Providers Care Sap Mobility Architect Name Role Phone GINOINGRIS MAHENDRA Attending Unavailable [facility] Primary Unavailable Social History Type Status Start Date End Date Code Code Syst em Smoking History Never smoker (Never Smoked) 369632155 SNOMED CT Sex Female Medications Medication Start Date End Date Route Frequency Dose Code Code System Medication Instructions Home Meds Amitriptyline 50MG Oral Tablet 08/20/2019 01/02/2022 ORAL BEDTIME 50 MILLIGRAMS 307093 RxNorm TAKE 50 MILLIGRAMS ORAL BEDTIME Atorvastatin Calcium 20MG Oral Tablet 08/20/2019 Unknown ORAL BEDTIME 20 MILLIGRAMS 201549 RxNorm TAKE 20 MILLIGRAMS ORAL BEDTIME Fish Oil 1000MG Oral Capsule, Liquid Filled 08/20/2019 03/18/2024 ORAL DAILY 3 CAPSULE 112582 RxNorm TA KE 3 CAPSULE ORAL DAILY Gabapentin 800MG Oral Tablet 08/20/2019 03/18/2024 ORAL TWICE A DAY 1 TABLET 874630 RxNorm TAKE 1 TABLET ORAL TWICE A DAY Lisinopril 20MG Oral Tablet 08/20/2019 03/18/2024 ORAL DAILY 20 MILLIGRAMS 621842 RxNorm TAKE 20 MILLIGRAMS ORAL DAILY Loratadine 10MG Oral Tablet 08/20/2019 01/02/2022 ORAL DAILY 10 MILLIGRAMS 395664 RxNorm TAKE 10 MILLIGRAMS ORAL DAILY Multiple Vitamin Formula Oral Tablet 08/20/2019 03/18/2024 ORAL DAILY 1 unit(s) 2135223 RxNorm TAKE 1 E ACH ORAL DAILY Pramipexole Dihydrochlorid e 0.125MG Oral Tablet 08/20/2019 09/30/2023 ORAL BEDTIME 2 TABLET 025534 RxNorm TAKE 2 TABLET ORAL BEDTIME Probiotic 250MG Oral Capsule 08/20/2019 01/02/2022 ORAL DAILY 3 TABLET 275884 RxNorm TAKE 3 TABLET ORAL DAILY glipiZIDE 10MG Oral Tablet, Extended Release 08/20/2019 Unknown ORAL DAILY 10 MILLIGRAMS 365834 RxNorm TAKE 10 MILLIGRAMS ORAL DAILY metFORMIN HCl 1000MG Oral Tablet 08/20/2019 Unknown ORAL TWICE A DAY WITH FOOD 1000 MILLIGRAMS 446334 RxNorm TAKE 1000 MILLIGRAMS ORAL TWICE A DAY WITH FOOD Cephalexin 500MG Oral Tablet 08/20/2019 01/02/2022 ORAL THREE TIMES A DAY 1 TABLET 198524 RxNorm TAKE 1 TABLET ORAL THREE TIMES A DAY Keflex 500MG Oral Capsule 01/02/2022 09/30/2023 ORAL THREE TIMES A DAY 1 CAPSULE 004807 RxNorm TAKE 1 CAPSULE ORAL THREE TIMES A DAY Nystatin 424456G/1ML Oral Suspension 01/02/2022 09/30/2023 ORAL FOUR TIMES A DAY 5 mL 237589 RxNorm TAKE 5 mL ORAL FOUR TIMES A DAY Cephalexin 500MG Oral Tablet 03/17/2024 03/19/2024 ORAL TWICE A DAY 1 TABLET 554760 RxNorm TAKE 1 TABLET ORAL TWICE A DAY x 7 days Acetaminophen 500MG Oral Tablet 03/18/2024 03/18/2024 ORAL NEEDED EVERY 6 HOURS 2 TABLET 231733 RxNorm TAKE 2 TABLET (OR 3 TABLETS regular strength 325mg) ORAL EVERY 6 HOURS FOR 1-2 DAYS THEN NEEDED FOR Fever/Pain (NEXT DOSES 6AM AND 12 NOON) Ibuprofen 200MG Oral Tablet 03/18/2024 03/18/2024 ORAL EVERY 6 HOURS 2 TABLET 238912 RxNorm TAKE 2 TABLET ORAL EVERY 6 HOURS FOR 24 HOURS THEN NEEDED. (NEXT DOSES at 4AM AND 10AM) Aspirin 81MG Oral Tablet, Enteric Coated 03/19/2024 Unknown ORAL DAILY 81 MILLIGRAMS 933234 RxNorm TAKE 81 MILLIGRAMS ORAL DAILY Carvedilol 6.25MG Oral Tablet 03/19/2024 Unknown ORAL TWICE A DAY 6.25 MILLIGRAMS 653986 RxNorm TAKE 6.25 MILLIGRAMS ORAL TWICE A DAY Fish Oil Bristow-3 1000 MG Oral Capsule, Liquid Filled 03/19/2024 Unknown ORAL DAILY 1000 MG RxNorm TAKE 10 00 MG ORAL DAILY Gabapentin 600MG Oral Tablet 03/19/2024 Unknown ORAL TWICE A DAY 600 MILLIGRAMS 199156 RxNorm TAKE 600 MILLIGRAMS ORAL TWICE A DAY Lisinopril 10MG Oral Tablet 03/19/2024 Unknown ORAL DAILY 10 MILLIGRAMS 865169 RxNorm TAKE 10 MILLIGRAMS ORAL DAILY Multiple [...] Tablet 03/19/2024 Unknown ORAL BEDTIME 0.5 MILLIGRAMS 189009 RxNorm TAKE 0.5 MILLIGRAMS ORAL BEDTIME Ventolin HFA 0.09MG/1Actuat ion Inhalation Suspension 03/19/2024 Unknown INHAL ATION NEEDED EVERY 4 HOURS 2 unit(s) 381959 RxNorm 2 EACH INHALATION NEEDED EVERY 4 HOURS Victoza 6MG/1ML Subcutaneous Solution 03/19/2024 Unknown SUBCU TANEO US 1.8 MILLILITERS 887040 RxNorm INJECT 1.8 MILLILITERS SUBCUTANEOU S Cefdinir [...] Code Code System URINARY TRACT INFECTION active 493925 05 SNOMED-CT HYPOTENSION active 39601648 SNOMED-C T HYPOKALEMIA active 55692205 SNOMED-C T SEPSIS active 97059077 SNOMED-CT CIRRHOSIS - NON-ALCOHOLIC 01/02/2022 resolved 266 990275 SNOMED-CT HTN 08/20/2019 resolved 93411209 SNOMED-CT HIGH CHOLESTEROL 10/01/2023 resolved 57783540 SN OMED-CT PERSONAL HISTORY OF BLADDER CA 08/20/2019 resolved 167845856 SNOMED-CT NON-INSULIN DEPENDENT DIABETES MELLITUS 08/20/2019 resolved 22291951 SNOMED-CT 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 414904402 SNOMED-CT Allergies and Adverse Reactions Allergy Substance Reaction Severity Start Date Concern Status Co de Code System CODEINE Active 4353 RxNorm Plan of Treatment PFT COMPLETE W [...]
--- OUTSIDE RECORDS SUMMARY | 2024-04-20 15:57 | XMS_ITS | Encounter Summary ---
Author Organization [facility] Address [address] [place] [address] Care Team Providers Care Cross Tie Turner Name Role Phone Agustin Ramires MD Primary Care Provider [phone] Kayleigh Peña Primary Care Provider [phone] Agustin Ramires MD Primary Care Provider [phone] Lizbet Zhang Primary Care Provider + [phone] Encounter Details Date Type Department Care Team (Late st Contact Info) Description 04/11/2011 Historical Results Only [facility] Lab - Main [place] [address] [place] [id number] Leland Boykin MD Social History Tobacco Use [...] (04/11/2011) 04/11/2011 04/12/2011 9:1 9 EST Narrative [facility] - 04/13/2011 8:50 EST ----- ------- Name: MILKA MENDIETA ?: 42 ?Age/Sex: 78/F ?Unit#: [id number] ? Loc: LAB.OPX ? Status: REG REF ?? Reg Date: 04/11/11 ? Pt.Phone Number: ? ----- ------- Specimen: [id number] ?STATUS: SOUT ?Spec Date:04/11/11 ? Physician Copies: ?Leland Boykin MD ?? Tissues: ? Urine (VOID) ? Kayleigh Peña CPT: 51195 ?? Units: ??1 ----- ------- ?? NON GLASSWARE DEFECT REPAIRER CYTOLOGY DIAGNOSIS Urine, voided Benign urothelial cells, [...] Test Performed by [facility], [address] [place] [address] Casino Floor Walker: Namrata Childs MD PHD ----- ------- us Leland Boykin MD PATHOLOGY ORDERABLES Final Resul t [facility] documented in this encounter Visit Diagnoses Not on filedocumented in this encounter Care Teams Cross Tie Turner Relationship Specialty Start Date End Date Agustin Ramires MD [address] [place] [address] [place] [address] PCP - General 02/08/11 05/15/11 Kaylegih Peña PA [address] [facility] [address] [place] [address] PCP - General 05/16/11 08/19/11 Agustin Ramires MD [address] [place] 2 [place] [address] PCP - General 08/20/11 02/23/13 Lizbet Zhang FNP [address] [place] [place] [id number] PCP - General 02/24/13 03/13/20 documented as of this encounter
--- OUTSIDE RECORDS SUMMARY | 2024-04-20 15:57 | XMS_ITS | Encounter Summary ---
Author Organization Health system Address [address] [place] [address] Care Team Providers Care Professor Of Music Name Role Phone Avel Rivera MD Primary Care Provider Unav ailable Encounter Details Date Type Department Care Team (Late st Contact Info) Description 03/09/[address] [address] Avel Rivera MD Hypertension; DM (Diabetes Mellitus) ([facility]); PPD Positive; IBS (Irritable Bowel Syndrome); Hyperlipidemia; [...] Unspecified essential hypertension DM (diabetes mellitus) ([facility]) Type II or unspecified type diabetes [...] 05/04/2009 added in this encounter Care Teams Professor Of Music Relationship Specialty Start Date End Date Avel Rivera MD PCP - General 09/03/08 07/10/09 documented as of this encounter
--- OUTSIDE RECORDS SUMMARY | 2024-04-20 15:57 | XMS_ITS | Encounter Summary ---
Author Organization [facility] Address [address] [place] [address] Care Team Providers Care Ammonia Operator Name Role Phone Unknown, Provider Primary Care Provider Agustin Anna MD Primary Care Provider [phone] Kayleigh Peña Primary Care Provider [phone] Agustin Ramires MD Primary Care Provider [phone] Lizbet Zhang CLAY MAKER Primary Care Provider [phone] Salome Mcarthur FIBERGLASS BOAT ASSEMBLY SUPERVISOR Primary Care Provider [phone] Encounter Details Date Type Department Care Team (Late st Contact Info) Description 05/17/2010 Telephone [facility] [address] [place] [address] Montrell Jaeger MD [address] [place] [address] [address] [place] [address] Social History Tobacco Use Types [...] on filedocumented in this encounter Care Teams Ammonia Operator Relationship Specialty Start Date End Date Unknown, Provider, PCP - General 05/17/10 02/07/11 Agustin Ramires MD [address] [place] [address] PCP - General 02/08/11 05/15/11 Kayleigh Peña PA [address] [place] [address] PCP - General 05/16/11 08/19/11 Agustin Ramires MD [address] [place] [address] PCP - General 08/20/11 02/23/13 Lizbet Zhang FNP [address] [place], [place] [id number] PCP - General 02/24/13 03/13/20 Salome Mcarthur NP [address] [facility] [place], [place] [id number] PCP - General 03/14/20 documented as of this encounter
--- OUTSIDE RECORDS SUMMARY | 2024-04-20 15:57 | XMS_ITS | Encounter Summary ---
Author Organization [facility] Address [address] [place] [address] Care Team Providers Care Formulator Compounder Name Role Phone Avel Rivera MD Primary Care Provider Unav ailable Encounter Details Date Type Department Care Team (Late st Contact Info) Description 07/01/2006 Before PRISM Converted Visit ([place]) [facility] - [place] conversion [address] [place] [address] Tiara Mendez MD [phone] [place] [address] Social History Tobacco Use Types Packs/Day Years Used Date Smoking Tobacco: Never Assessed Comments Unknown Sex and Gender Information Value Date Recorded Sex Assigned at Not on file Legal Sex Female 18:18 EST Gender Identity Female 02/14/2022 14:15 EST Sexual Orientation Not on file documented as of this encounter Progress Notes * Tad, Conv Fondant Machine Operator - 02/08/2009 1017 EST [facility] PROGRESS/FOLLOWUP NOTE - 07/01/2006 SUBJECTIVE Mrs. Corbett [...] the one her friend went to in [place]. 3. Hypertension, excellently controlled at present. She [...] MD Tiara Mendez MD P Job ID [id number] A/lt Doc ID [id number] cc: documented in this encounter Plan of Treatment Not on file documented as of this encounter Visit Diagnoses Not on filedocumented in this encounter Care Teams Formulator Compounder Relationship Specialty Start Date End Date Avel Rivera MD PCP - General 09/03/08 07/10/09 documented as of this encounter
--- OUTSIDE RECORDS SUMMARY | 2024-04-20 15:57 | XMS_ITS | Encounter Summary ---
Author Organization [facility] Address [address] [place] [address] Care Team Providers Care Bander And Cellophaner Machine Name Role Phone Unknown, Provider Primary Care [...] Info) Description 05/18/2010 11:30 EST Office Visit [facility] ENT - [address] [address] Unknown, Provider, MD Jaeger, Montrell Holman MD [address] [place] [address] [address] LPRD (laryngopharyngeal reflux disease); Deviated [...] Montrell Jaeger MD - 05/23/2010 1635 EST [facility] - 05/18/2010 Kayleigh Peña [facility] [address] [place] [address], [address] [place] [address] Dear Jessearnel: This is a consult from [...] - THANIA Job ID: SM Doc ID: [id number] Ext Doc ID: [id number] cc: TOPHER Mackey documented in this encounter [...] 2 times daily with breakfast and dinner. [place]-3 Fatty Acids-Vitamin E (FISH OIL) 1,000 mg Cap Take by mouth daily. added in this encounter Care Teams Bander And Cellophaner Machine Relationship Specialty Start Date End Date Unknown, Provider, PCP - General 05/17/10 02/07/11 documented as of this encounter
--- OUTSIDE RECORDS SUMMARY | 2024-04-20 15:57 | XMS_ITS | Encounter Summary ---
Author Organization [facility] Address [address] [place] [address] Care Team Providers Care Brown Stock Washer Name Role Phone Unknown, Provider Primary Care Provider Agustin Anna MD Primary Care Provider [phone] Kayleigh Peña Primary Care Provider + [phone] Agustin Ramires MD Primary Care Provider [phone] Lizbet ZhangP Primary Care Provider [phone] Encounter Details Date Type Department Care Team (Late st Contact Info) Description 09/13/2010 Historical Results Only [facility] - Main [address] [address] Leland Boykin MD Social History Tobacco Use [...] (09/13/2010) 09/13/2010 09/14/2010 9:1 8 EDT Narrative [facility] - 09/19/2010 16:59 EDT ----- ------- Name: MILKA MENDIETA ?: 42 ?Age/Sex: 78/F ?Unit#: [id number] ? Loc: LAB.OPX ? Status: REG REF ?? Reg Date: 09/14/10 ? Pt.Phone Number: ? ----- ------- Specimen: [id number] ? STATUS: SOUT ?Spec Date:09/13/10 ? Physician Copies: ?Leland Boykin MD ?? Tissues: ? Urine (VOID) ? CPT: 71553 ?? Units: ??1 ----- ------- ?? NON CALENDER WIND UP HELPER CYTOLOGY DIAGNOSIS Urine, voided: - Cellular specimen [...] above diagnosis. Test Performed by [facility], [address] [place] [address] Eyeglass Fitter: Namrata Childs MD PHD ----- ------- Leland Boykin MD PATHOLOGY ORDERABLES Final Resul t [facility] documented in this encounter Visit Diagnoses Not on filedocumented in this encounter Care Teams Brown Stock Washer Relationship Specialty Start Date End Date Unknown, Provider, PCP - General 05/17/10 02/07/11 Agustin Ramires MD [address] [address] [place] [address] PCP - General 02/08/11 05/15/11 Kayleigh Peña PA [address] [place] [address] PCP - General 05/16/11 08/19/11 Agustin Ramries MD [address] [address] [place] [address] PCP - General 08/20/11 02/23/13 Lizbet Zhang FNP [address] [place], [place] [id number] PCP - General 02/24/13 03/13/20 documented as of this encounter
--- OUTSIDE RECORDS SUMMARY | 2024-04-20 15:57 | XMS_ITS | Encounter Summary ---
Author Organization [facility] Address [address] [place] [address] Care Team Providers Care Insurance Verification Rep Name Role Phone Avel Rivera MD Primary Care Provider Unav ailable Encounter Details Date Type Department Care Team (Late st Contact Info) Description 06/14/2005 Before PRISM Converted Visit ([place]) [facility] - [place] conversion [address] [place] [address] Tiara Mendez MD [phone] [place] [address] Social History Tobacco Use Types Packs/Day Years Used Date Smoking Tobacco: Never Assessed Comments Unknown Sex and Gender Information Value Date Recorded Sex Assigned at Not on file Legal Sex Female 18:18 EST Gender Identity Female 02/14/2022 14:15 EST Sexual Orientation Not on file documented as of this encounter Progress Notes * Tad, Conv Ship Engines Operating Engineer - 03/17/2009 6187 EST [facility] PROGRESS/FOLLOWUP NOTE - 06/14/2005 SUBJECTIVE: Milka is here because she has been ill for the past week to two. She complains of nasal congestion, sore throat, headache, otalgia, and ???pressure in her lungs.?? She has not really been able to bring up anything when coughing. She has tried several rlwo-kso-mglmsfz medications without much improvement. She also complains [...] 875 b.i.d. for ten days. Continue with gvdc-zjd-lncdjim medications. Problem #2: Left upper quadrant pain intermittently which is likely gastrointestinal in origin. PLAN: I will have her try either an H2 reva or PPI bidf-zdx-mzsiuum to see if her symptoms improve. Problem [...] Mendez MD P - clr Job ID: [id number] Document ID: [id number] cc: documented in this encounter Plan of Treatment Not on file documented as of this encounter Visit Diagnoses Not on filedocumented in this encounter Care Teams Insurance Verification Rep Relationship Specialty Start Date End Date Avel Rivera MD PCP - General 09/03/08 07/10/09 documented as of this encounter
--- OUTSIDE RECORDS SUMMARY | 2024-04-20 15:57 | XMS_ITS | Encounter Summary ---
Author Organization [facility] Address [address] [place] [address] Care Team Providers Care Cut Off Saw Operator Metal Name Role Phone Avel Rivera MD Primary Care Provider Unav ailable Encounter Details Date Type Department Care Team (Late st Contact Info) Description 04/25/2007 Before PRISM Converted Visit ([place]) [facility] - [place] conversion [address] [place] [address] Tiara Mendez MD [phone] [place] [address] Social History Tobacco Use Types Packs/Day Years Used Date Smoking Tobacco: Never Assessed Comments Unknown Sex and Gender Information Value Date Recorded Sex Assigned at Not on file Legal Sex Female 18:18 EST Gender Identity Female 02/14/2022 14:15 EST Sexual Orientation Not on file documented as of this encounter Progress Notes * Tad, Alison Carpet Layer - 02/16/2009 1357 EST [facility] PROGRESS/FOLLOWUP NOTE - 05/09/2007 ANA M Jarquin [...] 08:52 Tiara Mendez MD P Job ID [id number] T: 6:02 P/JG Doc ID [id number] cc: P Job ID [id number] P/jg Doc ID [id number] cc: * Alison Mishra Carpet Layer - 02/16/2009 2886 EST [facility] PROGRESS/FOLLOWUP NOTE - 04/25/2007 ANAM Jarquin is here complaining of not feeling [...] 09:42 Tiara Mendez MD P Job ID [id number] T: 5:05 A/jennie Doc ID [id number] cc: cc: documented in this encounter Plan of Treatment Not on file documented as of this encounter Visit Diagnoses Not on filedocumented in this encounter Care Teams Cut Off Saw Operator Metal Relationship Specialty Start Date End Date Avel Rivera MD PCP - General 09/03/08 07/10/09 documented as of this encounter
--- OUTSIDE RECORDS SUMMARY | 2024-04-20 15:57 | XMS_ITS ---
Author Organization Unknown Address [address] [place] [phone] Phone Care Team Providers Care Cook Soup Name Role Phone HANSA RODRIGUEZ MD Attending Unavailable JOHN PETERSON Primary Unavailable Results URINALYSIS ROUTINE - Collect Date/Time: 11/17/2020 15:00 [facility] ID: [id number] - [id number] [address] [place], [place], [address] LOINC: Test Value Unit Reference Range Code Code System Flag COLLECTION MODE: CLEAN CATCH Color ORANGE yellow 5778-6 LOINC Appearance HAZY clear 5767-9 LOINC Glucose urine DNR negative mg/dl 53190-8 LOINC Bilirubin DNR negative 5770-3 LOINC Ketones DNR negative mg/dl 2514-8 LOINC Spec gravity DNR 1.003 - 1.030 5811-5 LOINC pH urine DNR 5.0 - 7.0 2756-5 LOINC Protein DNR negative mg/dl 30917-9 LOINC Urobilinogen DNR <or= 1 EU/dl 13802-4 LOINC Nitrite DNR negative 5802-4 LOINC Blood DNR negative 5794-3 LOINC Leukocytes DNR negative 83711-5 LOINC MICROSCOPIC* INDICATED WBCs 25-100 0-5 / hpf 59172-1 LOINC RBCs 5-10 0-5 / hpf 37193-2 LOINC Epith cells none 0-5 / hpf 03267-8 LOINC Crystals none none Bacteria large none Mucus none none 8247-9 LOINC Casts none none /lpf 08016-3 LOINC Other 40104-4 LOINC CORRECTED CORRECTED Social History Type Status Start Date End Date Code Code Syst em Smoking History Never smoker (Never Smoked) 714749495 SNOMED CT Sex Female Medications Medication Start Date End Date Route Frequency Dose Code Code System Medication Instructions Home Meds Amitriptyline 50MG Oral Tablet 08/20/2019 01/02/2022 ORAL BEDTIME 50 MILLIGRAMS 434766 RxNorm TAKE 50 MILLIGRAMS ORAL BEDTIME Atorvastatin Calcium 20MG Oral Tablet 08/20/2019 Unknown ORAL BEDTIME 20 MILLIGRAMS 517201 RxNorm TAKE 20 MILLIGRAMS ORAL BEDTIME Fish Oil 1000MG Oral Capsule, Liquid Filled 08/20/2019 03/18/2024 ORAL DAILY 3 CAPSULE 714169 RxNorm TA KE 3 CAPSULE ORAL DAILY Gabapentin 800MG Oral Tablet 08/20/2019 03/18/2024 ORAL TWICE A DAY 1 TABLET 528553 RxNorm TAKE 1 TABLET ORAL TWICE A DAY Lisinopril 20MG Oral Tablet 08/20/2019 03/18/2024 ORAL DAILY 20 MILLIGRAMS 932344 RxNorm TAKE 20 MILLIGRAMS ORAL DAILY Loratadine 10MG Oral Tablet 08/20/2019 01/02/2022 ORAL DAILY 10 MILLIGRAMS 777190 RxNorm TAKE 10 MILLIGRAMS ORAL DAILY Multiple Vitamin Formula Oral Tablet 08/20/2019 03/18/2024 ORAL DAILY 1 unit(s) 2611721 RxNorm TAKE 1 E ACH ORAL DAILY Pramipexole Dihydrochlorid e 0.125MG Oral Tablet 08/20/2019 09/30/2023 ORAL BEDTIME 2 TABLET 227410 RxNorm TAKE 2 TABLET ORAL BEDTIME Probiotic 250MG Oral Capsule 08/20/2019 01/02/2022 ORAL DAILY 3 TABLET 248809 RxNorm TAKE 3 TABLET ORAL DAILY glipiZIDE 10MG Oral Tablet, Extended Release 08/20/2019 Unknown ORAL DAILY 10 MILLIGRAMS 920012 RxNorm TAKE 10 MILLIGRAMS ORAL DAILY metFORMIN HCl 1000MG Oral Tablet 08/20/2019 Unknown ORAL TWICE A DAY WITH FOOD 1000 MILLIGRAMS 075692 RxNorm TAKE 1000 MILLIGRAMS ORAL TWICE A DAY WITH FOOD Cephalexin 500MG Oral Tablet 08/20/2019 01/02/2022 ORAL THREE TIMES A DAY 1 TABLET 930677 RxNorm TAKE 1 TABLET ORAL THREE TIMES A DAY Keflex 500MG Oral Capsule 01/02/2022 09/30/2023 ORAL THREE TIMES A DAY 1 CAPSULE 859149 RxNorm TAKE 1 CAPSULE ORAL THREE TIMES A DAY Nystatin 054970M/1ML Oral Suspension 01/02/2022 09/30/2023 ORAL FOUR TIMES A DAY 5 mL 717370 RxNorm TAKE 5 mL ORAL FOUR TIMES A DAY Cephalexin 500MG Oral Tablet 03/17/2024 03/19/2024 ORAL TWICE A DAY 1 TABLET 106294 RxNorm TAKE 1 TABLET ORAL TWICE A DAY x 7 days Acetaminophen 500MG Oral Tablet 03/18/2024 03/18/2024 ORAL NEEDED EVERY 6 HOURS 2 TABLET 443658 RxNorm TAKE 2 TABLET (OR 3 TABLETS regular strength 325mg) ORAL EVERY 6 HOURS FOR 1-2 DAYS THEN NEEDED FOR Fever/Pain (NEXT DOSES 6AM AND 12 NOON) Ibuprofen 200MG Oral Tablet 03/18/2024 03/18/2024 ORAL EVERY 6 HOURS 2 TABLET 364260 RxNorm TAKE 2 TABLET ORAL EVERY 6 HOURS FOR 24 HOURS THEN NEEDED. (NEXT DOSES at 4AM AND 10AM) Aspirin 81MG Oral Tablet, Enteric Coated 03/19/2024 Unknown ORAL DAILY 81 MILLIGRAMS 672083 RxNorm TAKE 81 MILLIGRAMS ORAL DAILY Carvedilol 6.25MG Oral Tablet 03/19/2024 Unknown ORAL TWICE A DAY 6.25 MILLIGRAMS 19990607 RxNorm TAKE 6.25 MILLIGRAMS ORAL TWICE A DAY Fish Oil [place]-3 1000 MG Oral Capsule, Liquid Filled 03/19/2024 Unknown ORAL DAILY 1000 MG RxNorm TAKE 10 00 MG ORAL DAILY Gabapentin 600MG Oral Tablet 03/19/2024 Unknown ORAL TWICE A DAY 600 MILLIGRAMS 379145 RxNorm TAKE 600 MILLIGRAMS ORAL TWICE A DAY Lisinopril 10MG Oral Tablet 03/19/2024 Unknown ORAL DAILY 10 MILLIGRAMS 660235 RxNorm TAKE 10 MILLIGRAMS ORAL DAILY Multiple [...] Tablet 03/19/2024 Unknown ORAL BEDTIME 0.5 MILLIGRAMS 556687 RxNorm TAKE 0.5 MILLIGRAMS ORAL BEDTIME Ventolin HFA 0.09MG/1Actuat ion Inhalation Suspension 03/19/2024 Unknown INHAL ATION NEEDED EVERY 4 HOURS 2 unit(s) 996238 RxNorm 2 EACH INHALATION NEEDED EVERY 4 HOURS Victoza 6MG/1ML Subcutaneous Solution 03/19/2024 Unknown SUBCU TANEO US 1.8 MILLILITERS 104615 RxNorm INJECT 1.8 MILLILITERS SUBCUTANEOU S Cefdinir [...] Code Code System URINARY TRACT INFECTION active 435152 05 SNOMED-CT HYPOTENSION active 97354058 SNOMED-C T HYPOKALEMIA active 69681432 SNOMED-C T SEPSIS active 04410645 SNOMED-CT CIRRHOSIS - NON-ALCOHOLIC 01/02/2022 resolved 266 610082 SNOMED-CT HTN 08/20/2019 resolved 58641318 SNOMED-CT HIGH CHOLESTEROL 10/01/2023 resolved 38427236 SN OMED-CT PERSONAL HISTORY OF BLADDER CA 08/20/2019 resolved 277788161 SNOMED-CT NON-INSULIN DEPENDENT DIABETES MELLITUS 08/20/2019 resolved 60532825 SNOMED-CT 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
--- OUTSIDE RECORDS SUMMARY | 2024-04-20 15:57 | XMS_ITS | Encounter Summary ---
Author Organization [facility] Address [address] [place] [address] Care Team Providers Care Display Specialist Name Role Phone Agustin Ramires MD Primary Care Provider [phone] Avel Rivera MD Primary Care Provider Unav ailable Unknown, Provider Primary Care Provider Unava ilable Agustin Ramires MD Primary Care Provider [phone] Kayleigh Peña Primary Care Provider [phone] Agustin Ramires MD Primary Care Provider [phone] Lizbet Zhang SILVER CHASER Primary Care Provider + [phone] Encounter Details Date Type Department Care Team (Late st Contact Info) Description 05/10/2009 Historical Results Only [facility] - Main [place] [address] [place] [address] Leland Boykin MD Social History Tobacco Use [...] (05/10/2009) 05/10/2009 05/10/2009 11: 28 EST Narrative [facility] - 05/11/2009 13:51 EST ----- ------- Name: MILKA MENDIETA ?: 42 ?Age/Sex: 78/F ?Unit#: [id number] ? Loc: SDS ? Status: DEP SDC ?? Reg Date: 05/10/09 ? Pt.Phone Number: ? ----- ------- Specimen: [id number] ?STATUS: SOUT ?Spec Date:05/10/09 ? Physician Copies: ?Leland Boykin MD ?? Tissues: A ?? Urinary Tract (BLADDER DOME) ? CPT: 57690 ?? Units: ??1 ?FINAL DIAGNOSIS ? Bladder, [...] confirmed the above diagnosis. Test Performed by , [address] [place], [place] [id number] Wire Loop Machine Operator: Namrata Childs MD PHD ----- ------- Leland Boykin MD PATHOLOGY ORDERABLES Final Resul t [facility] documented in this encounter Visit Diagnoses Not on filedocumented in this encounter Care Teams Display Specialist Relationship Specialty Start Date End Date Agustin Ramires MD [address] [address] PCP - General 07/11/09 05/16/10 Avel Rivera MD PCP - General 09/03/08 07/10/09 Unknown, MD Nkechi PCP - General 05/17/10 02/07/11 Agustin Ramires MD [address] [address] [place] [address] PCP - General 02/08/11 05/15/11 Kayleigh Peña PA [address] [place] [address] PCP - General 05/16/11 08/19/11 Agustin Ramires MD [address] [address] [place] [phone] PCP - General 08/20/11 02/23/13 Lizbet Zhang, INDIRA [address] [place], [place] [address] PCP - General 02/24/13 03/13/20 documented as of this encounter
--- OUTSIDE RECORDS SUMMARY | 2024-04-20 15:57 | XMS_ITS | Encounter Summary ---
Author Organization [facility] Address [address] [place] [address] Care Team Providers Care Inspector Weights And Measures Name Role Phone Avel Rivera MD Primary Care Provider Unav ailable Encounter Details Date Type Department Care Team (Late st Contact Info) Description 06/17/2006 Before PRISM Converted Visit ([place]le) [facility] - [place] conversion [address] [place] [address] Tiara Mendez MD [phone] [place] [address] Social History Tobacco Use Types Packs/Day Years Used Date Smoking Tobacco: Never Assessed Comments Unknown Sex and Gender Information Value Date Recorded Sex Assigned at Not on file Legal Sex Female 18:18 EST Gender Identity Female 02/14/2022 14:15 EST Sexual Orientation Not on file documented as of this encounter Progress Notes * Tad, Conv Seamer Panty Hose - 02/08/2009 1252 EST [facility] PROGRESS/FOLLOWUP NOTE - 06/17/2006 ANA M Jarquin [...] a referral to the sleep clinic at [facility] for further evaluation and decide whether [...] Tiara Mendez MD 06/23/2006 12:40 Krishna [facility]endez, [facility] Tiara Mendez MD P Job ID [id number] Sharron/nubia Doc ID [id number] cc: \* MERGEFORMAT Tiara Mendez MD P Job ID [id number] Sharron/nubia Doc ID [id number] cc: documented in this encounter Plan of Treatment Not on file documented as of this encounter Visit Diagnoses Not on filedocumented in this encounter Care Teams Inspector Weights And Measures Relationship Specialty Start Date End Date Avel Rivera MD PCP - General 09/03/08 07/10/09 documented as of this encounter
--- OUTSIDE RECORDS SUMMARY | 2024-04-20 15:57 | XMS_ITS | Encounter Summary ---
Author Organization [facility] Address [address] [place] [address] Care Team Providers Care Spud Grader Name Role Phone Avel Rivera MD Primary Care Provider Unav ailable Reason for Visit * Reason Onset Date Comments Medications Refill 05/04/2009 robert, please call milka that this has been ordered Encounter Details Date Type Department Care Team (Late st Contact Info) Description 05/04/[address] [address] Avel Rievra MD Medications Refill (robert, please call milka [...] documented as of this encounter Care Teams Spud Grader Relationship Specialty Start Date End Date Avel Rivera MD PCP - General 09/03/08 07/10/09 documented as of this encounter
--- OUTSIDE RECORDS SUMMARY | 2024-04-20 15:57 | XMS_ITS | Encounter Summary ---
Author Organization [facility] Address [address] [place] [address] Care Team Providers Care Firer Locomotive Name Role Phone Avel Rivera MD Primary Care Provider Unav ailable Encounter Details Date Type Department Care Team (Late st Contact Info) Description 10/05/2005 Before PRISM Converted Visit (Maple) [facility] - Maple conversion [address] [place] [address] Tiara Mendez MD [phone] [place] [address] Social History Tobacco Use Types Packs/Day Years Used Date Smoking Tobacco: Never Assessed Comments Unknown Sex and Gender Information Value Date Recorded Sex Assigned at Not on file Legal Sex Female 18:18 EST Gender Identity Female 02/14/2022 14:15 EST Sexual Orientation Not on file documented as of this encounter Progress Notes * Tad, Conv Stone Setter - 04/01/2009 0953 EST [facility] PROGRESS/FOLLOWUP NOTE - 10/05/2005 SUBJECTIVE: Milka comes [...] We discussed possibly referring her to a trimming machine operator but she would like to wait [...] #2: Rosacea which is covered up by GoodyTag today. Trial of MetroGel 1% b.i.d. until clear. Explained that this will probably be an ongoing problem for her. PROBLEM #3: Diabetes. Continue with checking her blood sugars regularly and will check a [id number] at her convenience. PROBLEM #4: Hypertriglyceridemia. Check [...] Mendez MD P - jennie Job ID: [id number] Document ID: [id number] cc: documented in this encounter Plan of Treatment Not on file documented as of this encounter Visit Diagnoses Not on filedocumented in this encounter Care Teams Firer Locomotive Relationship Specialty Start Date End Date Avel Rivera MD PCP - General 09/03/08 07/10/09 documented as of this encounter
[2024-04-20 21:41] LABS: C Diff PCR Positive (Negative)
[2024-04-21 21:19] LABS: Campylobacter PCR Negative (Negative); Salmonella PCR Negative (Negative); Shiga Toxin PCR Negative (Negative); Shigella/Enteroinvasive Ecoli Negative (Negative)
== END 2024-04-20 15:39 | disposition home or self-care (01) ==
LOC: NCHCN 15:38
PROVIDERS: PCP Family Medicine; Visit Provider Family Medicine
DX: R19.7 Diarrhea, unspecified (principal)
CPT/HCPCS: 87493; 87505

== ENCOUNTER 2024-05-18 16:45 | Outpatient (REF) | payer MEDICARE, SELFPAY ==
--- OUTSIDE RECORDS SUMMARY | 2024-05-18 16:47 | XMS_ITS ---
Author Organization Unknown Address [address] [place] [address] [phone] Phone Care Team Providers Care Career Development Manager Name Role Phone LYUBOV MCNEILLIE Attending Unavailable JOHN Guaman Primary Unavailable Social History Type Status Start Date End Date Code Code Syst em Smoking History Never smoker (Never Smoked) [id number] SNOMED CT Sex Female Medications Medication Start Date End Date Route Frequency Dose Code Code System Medication Instructions Home Meds Amitriptyline 50MG Oral Tablet 08/20/2019 01/02/2022 ORAL BEDTIME 50 MILLIGRAMS 340446 RxNorm TAKE 50 MILLIGRAMS ORAL BEDTIME Atorvastatin Calcium 20MG Oral Tablet 08/20/2019 Unknown ORAL BEDTIME 20 MILLIGRAMS 207441 RxNorm TAKE 20 MILLIGRAMS ORAL BEDTIME Fish Oil 1000MG Oral Capsule, Liquid Filled 08/20/2019 03/18/2024 ORAL DAILY 3 CAPSULE 565794 RxNorm TA KE 3 CAPSULE ORAL DAILY Gabapentin 800MG Oral Tablet 08/20/2019 03/18/2024 ORAL TWICE A DAY 1 TABLET 219828 RxNorm TAKE 1 TABLET ORAL TWICE A DAY Lisinopril 20MG Oral Tablet 08/20/2019 03/18/2024 ORAL DAILY 20 MILLIGRAMS 189621 RxNorm TAKE 20 MILLIGRAMS ORAL DAILY Loratadine 10MG Oral Tablet 08/20/2019 01/02/2022 ORAL DAILY 10 MILLIGRAMS 342116 RxNorm TAKE 10 MILLIGRAMS ORAL DAILY Multiple Vitamin Formula Oral Tablet 08/20/2019 03/18/2024 ORAL DAILY 1 unit(s) 9957405 RxNorm TAKE 1 E ACH ORAL DAILY Pramipexole Dihydrochlorid e 0.125MG Oral Tablet 08/20/2019 09/30/2023 ORAL BEDTIME 2 TABLET 716945 RxNorm TAKE 2 TABLET ORAL BEDTIME Probiotic 250MG Oral Capsule 08/20/2019 01/02/2022 ORAL DAILY 3 TABLET 933582 RxNorm TAKE 3 TABLET ORAL DAILY glipiZIDE 10MG Oral Tablet, Extended Release 08/20/2019 Unknown ORAL DAILY 10 MILLIGRAMS 958480 RxNorm TAKE 10 MILLIGRAMS ORAL DAILY metFORMIN HCl 1000MG Oral Tablet 08/20/2019 Unknown ORAL TWICE A DAY WITH FOOD 1000 MILLIGRAMS 524691 RxNorm TAKE 1000 MILLIGRAMS ORAL TWICE A DAY WITH FOOD Cephalexin 500MG Oral Tablet 08/20/2019 01/02/2022 ORAL THREE TIMES A DAY 1 TABLET 626219 RxNorm TAKE 1 TABLET ORAL THREE TIMES A DAY Keflex 500MG Oral Capsule 01/02/2022 09/30/2023 ORAL THREE TIMES A DAY 1 CAPSULE 359903 RxNorm TAKE 1 CAPSULE ORAL THREE TIMES A DAY Nystatin 445175H/1ML Oral Suspension 01/02/2022 09/30/2023 ORAL FOUR TIMES A DAY 5 mL 327561 RxNorm TAKE 5 mL ORAL FOUR TIMES A DAY Cephalexin 500MG Oral Tablet 03/17/2024 03/19/2024 ORAL TWICE A DAY 1 TABLET 320365 RxNorm TAKE 1 TABLET ORAL TWICE A DAY x 7 days Acetaminophen 500MG Oral Tablet 03/18/2024 03/18/2024 ORAL NEEDED EVERY 6 HOURS 2 TABLET 424757 RxNorm TAKE 2 TABLET (OR 3 TABLETS regular strength 325mg) ORAL EVERY 6 HOURS FOR 1-2 DAYS THEN NEEDED FOR Fever/Pain (NEXT DOSES 6AM AND 12 NOON) Ibuprofen 200MG Oral Tablet 03/18/2024 03/18/2024 ORAL EVERY 6 HOURS 2 TABLET 344572 RxNorm TAKE 2 TABLET ORAL EVERY 6 HOURS FOR 24 HOURS THEN NEEDED. (NEXT DOSES at 4AM AND 10AM) Aspirin 81MG Oral Tablet, Enteric Coated 03/19/2024 Unknown ORAL DAILY 81 MILLIGRAMS 515054 RxNorm TAKE 81 MILLIGRAMS ORAL DAILY Carvedilol 6.25MG Oral Tablet 03/19/2024 Unknown ORAL TWICE A DAY 6.25 MILLIGRAMS 436702 RxNorm TAKE 6.25 MILLIGRAMS ORAL TWICE A DAY Fish Oil [place]-3 1000 MG Oral Capsule, Liquid Filled 03/19/2024 Unknown ORAL DAILY 1000 MG RxNorm TAKE 10 00 MG ORAL DAILY Gabapentin 600MG Oral Tablet 03/19/2024 Unknown ORAL TWICE A DAY 600 MILLIGRAMS 403454 RxNorm TAKE 600 MILLIGRAMS ORAL TWICE A DAY Lisinopril 10MG Oral Tablet 03/19/2024 Unknown ORAL DAILY 10 MILLIGRAMS 468399 RxNorm TAKE 10 MILLIGRAMS ORAL DAILY Multiple [...] Tablet 03/19/2024 Unknown ORAL BEDTIME 0.5 MILLIGRAMS 264588 RxNorm TAKE 0.5 MILLIGRAMS ORAL BEDTIME Ventolin HFA 0.09MG/1Actuat ion Inhalation Suspension 03/19/2024 Unknown INHAL ATION NEEDED EVERY 4 HOURS 2 unit(s) 306859 RxNorm 2 EACH INHALATION NEEDED EVERY 4 HOURS Victoza 6MG/1ML Subcutaneous Solution 03/19/2024 Unknown SUBCU TANEO US 1.8 MILLILITERS 438821 RxNorm INJECT 1.8 MILLILITERS SUBCUTANEOU S Cefdinir [...] Code Code System URINARY TRACT INFECTION active 062774 05 SNOMED-CT HYPOTENSION active 34426116 SNOMED-C T HYPOKALEMIA active 28725290 SNOMED-C T SEPSIS active 02967214 SNOMED-CT CIRRHOSIS - NON-ALCOHOLIC 01/02/2022 resolved 266 178978 SNOMED-CT HTN 08/20/2019 resolved 25231607 SNOMED-CT HIGH CHOLESTEROL 10/01/2023 resolved 71605912 SN OMED-CT PERSONAL HISTORY OF BLADDER CA 08/20/2019 resolved 093039706 SNOMED-CT NON-INSULIN DEPENDENT DIABETES MELLITUS 08/20/2019 resolved 56977014 SNOMED-CT 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
--- OUTSIDE RECORDS SUMMARY | 2024-05-18 16:47 | XMS_ITS ---
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 Patient Name: NICK MENDIETA MRN: Sex: : Age: [id number] F [id number] Account: Accession: Admit: StayType: [id number] 11/27/2022 O/P Ordered: Order ID: Submitted: Ordering Provider: 11/27/2022 14:03 [id number] KT RUPAL BARILLAS Completed: Technologist: Resulted: 11/27/2022 14:20 [facility] 11/27/2022 14:47 Study Description: XR CHEST [...] em Smoking History Never smoker (Never Smoked) [id number] SNOMED CT Sex Female Medications Medication Start Date End Date Route Frequency Dose Code Code System Medication Instructions Home Meds Atorvastatin Calcium 20MG Oral Tablet 08/20/2019 Unknown ORAL BEDTIME 20 MILLIGRAMS 398024 RxNorm TAKE 20 MILLIGRAMS ORAL BEDTIME Fish Oil 1000MG Oral Capsule, Liquid Filled 08/20/2019 03/18/20 24 ORAL DAILY 3 CAPSULE 058655 RxNorm TAKE 3 CAPSULE ORAL DAILY Gabapentin 800MG Oral Tablet 08/20/2019 03/18/20 24 ORAL TWICE A DAY 1 TABLET 642123 RxNorm TAKE 1 TABLET ORAL TWICE A DAY Lisinopril 20MG Oral Tablet 08/20/2019 03/18/20 24 ORAL DAILY 20 MILLIGRAMS 180105 RxNorm TAKE 20 MILLIGRAMS ORAL DAILY Multiple Vitamin Formula Oral Tablet 08/20/2019 03/18/20 24 ORAL DAILY 1 unit(s) 7449329 RxNorm TAKE 1 EACH ORAL DAILY Pramipexole Dihydrochlorid e 0.125MG Oral Tablet 08/20/2019 09/30/19 24 ORAL BEDTIME 2 TABLET 703493 RxNorm TAKE 2 TABLET ORAL BEDTIME glipiZIDE 10MG Oral Tablet, Extended Release 08/20/2019 Unknown ORAL DAILY 10 MILLIGRAMS 445858 RxNorm TAKE 10 MILLIGRAMS ORAL DAILY metFORMIN HCl 1000MG Oral Tablet 08/20/2019 Unknown ORAL TWICE A DAY WITH FOOD 1000 MILLIGRAMS 418384 RxNorm TAKE 1000 MILLIGRAMS ORAL TWICE A DAY WITH FOOD Keflex 500MG Oral Capsule 01/02/2022 09/30/19 24 ORAL THREE TIMES A DAY 1 CAPSULE 596610 RxNorm TAKE 1 CAPSULE ORAL THREE TIMES A DAY Nystatin 907263A/1ML Oral Suspension 01/02/2022 09/30/19 24 ORAL FOUR TIMES A DAY 5 mL 244179 RxNorm TAKE 5 mL ORAL FOUR TIMES A DAY Cephalexin 500MG Oral Tablet 03/17/2024 03/19/20 24 ORAL TWICE A DAY 1 TABLET 564135 RxNorm TAKE 1 TABLET ORAL TWICE A DAY x 7 days Acetaminophen 500MG Oral Tablet 03/18/2024 03/18/20 24 ORAL NEEDED EVERY 6 HOURS 2 TABLET 189431 RxNorm TAKE 2 TABLET (OR 3 TABLETS regular strength 325mg) ORAL EVERY 6 HOURS FOR 1-2 DAYS THEN NEEDED FOR Fever/Pain (NEXT DOSES 6AM AND 12 NOON) Ibuprofen 200MG Oral Tablet 03/18/2024 03/18/20 24 ORAL EVERY 6 HOURS 2 TABLET 544752 RxNorm TAKE 2 TABLET ORAL EVERY 6 HOURS FOR 24 HOURS THEN NEEDED. (NEXT DOSES at 4AM AND 10AM) Aspirin 81MG Oral Tablet, Enteric Coated 03/19/2024 Unknown ORAL DAILY 81 MILLIGRAMS 567191 RxNorm TAKE 81 MILLIGRAMS ORAL DAILY Carvedilol 6.25MG Oral Tablet 03/19/2024 Unknown ORAL TWICE A DAY 6.25 MILLIGRAMS 19990607 RxNorm TAKE 6.25 MILLIGRAMS ORAL TWICE A DAY Fish Oil [place]-3 1000 MG Oral Capsule, Liquid Filled 03/19/2024 Unknown ORAL DAILY 1000 MG RxNorm TAKE 10 00 MG ORAL DAILY Gabapentin 600MG Oral Tablet 03/19/2024 Unknown ORAL TWICE A DAY 600 MILLIGRAMS 652437 RxNorm TAKE 600 MILLIGRAMS ORAL TWICE A DAY Lisinopril 10MG Oral Tablet 03/19/2024 Unknown ORAL DAILY 10 MILLIGRAMS 440956 RxNorm TAKE 10 MILLIGRAMS ORAL DAILY Multiple Vitamins Oral Tablet 03/19/2024 Unknown ORAL DAILY 1 unit(s) RxNorm TAKE 1 EACH ORAL DAILY Nitroglycerin 0.4MG Sublingual Tablet 03/19/2024 Unknown SUBLIN GUAL NEEDED 0.4 MILLIGRAMS 707108 RxNorm DISSOLVE 0.4 MILLIGRAMS SUBLINGUAL NEEDED Omeprazole 40MG Oral Capsule, Delayed Release 03/19/2024 Unknown ORAL DAILY 40 MILLIGRAMS 20020517 RxNorm TAKE 40 MILLIGRAMS ORAL DAILY Pramipexole Dihydrochlorid e 0.5MG Oral Tablet 03/19/2024 Unknown ORAL BEDTIME 0.5 MILLIGRAMS 284824 RxNorm TAKE 0.5 MILLIGRAMS ORAL BEDTIME Ventolin HFA 0.09MG/1Actuat ion Inhalation Suspension 03/19/2024 Unknown INHALA TION NEEDED EVERY 4 HOURS 2 unit(s) 507099 RxNorm 2 EACH INHALATION NEEDED EVERY 4 HOURS Victoza 6MG/1ML Subcutaneous Solution 03/19/2024 Unknown SUBCUT ANEOUS 1.8 MILLILITERS 149711 RxNorm INJECT 1.8 MILLILITERS SUBCUTANEOU S Cefdinir [...] Code Code System URINARY TRACT INFECTION active 076128 05 SNOMED-CT HYPOTENSION active 66443314 SNOMED-C T HYPOKALEMIA active 66098974 SNOMED-C T SEPSIS active 79947176 SNOMED-CT CIRRHOSIS - NON-ALCOHOLIC 01/02/2022 resolved 266 213615 SNOMED-CT HTN 08/20/2019 resolved 91865976 SNOMED-CT HIGH CHOLESTEROL 10/01/2023 resolved 98782839 SN OMED-CT PERSONAL HISTORY OF BLADDER CA 08/20/2019 resolved 740866392 SNOMED-CT NON-INSULIN DEPENDENT DIABETES MELLITUS 08/20/2019 resolved 41855101 SNOMED-CT 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
--- OUTSIDE RECORDS SUMMARY | 2024-05-18 16:47 | XMS_ITS ---
Author Organization Unknown Address [address] [place] [address] [phone] Phone Care Team Providers Care Row Boss Hoeing Name Role Phone HANSA Bear Attending Unavailable JOHN Guaman Primary Unavailable Results CULT URINE CULTURE* - [facility] t Date/Time: 04/06/2021 15:43 [facility] ID: [id number] [address] [place] [address], [phone] LOINC: 630-4 Test Value Unit Reference Range Code Code System Flag COLLECTION MODE: CLEAN CATCH URINALYSIS ROUTINE* - [facility] t Date/Time: 04/06/2021 15:43 [facility] ID: [id number] [address] [place] [address], 5661 LOINC: Test Value Unit Reference Range Code Code System Flag COLLECTION MODE: CLEAN CATCH Color YELLOW yellow 5778-6 LOINC Appearance HAZY clear 5767-9 LOINC Glucose urine NEGATIVE negative mg/dl 57013-8 LOINC Bilirubin NEGATIVE negative 5770-3 LOINC Ketones NEGATIVE negative mg/dl 2514-8 LOINC Spec gravity 1.025 1.003 - 1.030 5811-5 LOINC pH urine 5.5 5.0 - 7.0 2756-5 LOINC Protein NEGATIVE negative mg/dl 57056-4 LOINC Urobilinogen 0.2 <or= 1 EU/dl 97026-4 LOINC Nitrite NEGATIVE negative 5802-4 LOINC Blood TRACE-IN negative 5794-3 LOINC A Leukocytes MODERATE negative 74655-6 LOINC A MICROSCOPIC* INDICATED WBCs 25-100 0-5 / hpf 15995-6 LOINC RBCs 0-5 0-5 / hpf 29735-0 LOINC Epith cells 0-5 0-5 / hpf 14865-4 LOINC Cell types squam+trans Crystals none none Bacteria minimal none Mucus none none 8247-9 LOINC Casts none none /lpf 32867-6 LOINC Other 54381-2 LOINC Social History Type Status Start Date End Date Code Code Syst em Smoking History Never smoker (Never Smoked) 795317667 SNOMED CT Sex Female Medications Medication Start Date End Date Route Frequency Dose Code Code System Medication Instructions Home Meds Amitriptyline 50MG Oral Tablet 08/20/2019 01/02/2022 ORAL BEDTIME 50 MILLIGRAMS 667022 RxNorm TAKE 50 MILLIGRAMS ORAL BEDTIME Atorvastatin Calcium 20MG Oral Tablet 08/20/2019 Unknown ORAL BEDTIME 20 MILLIGRAMS 759340 RxNorm TAKE 20 MILLIGRAMS ORAL BEDTIME Fish Oil 1000MG Oral Capsule, Liquid Filled 08/20/2019 03/18/2024 ORAL DAILY 3 CAPSULE 761889 RxNorm TA KE 3 CAPSULE ORAL DAILY Gabapentin 800MG Oral Tablet 08/20/2019 03/18/2024 ORAL TWICE A DAY 1 TABLET 694381 RxNorm TAKE 1 TABLET ORAL TWICE A DAY Lisinopril 20MG Oral Tablet 08/20/2019 03/18/2024 ORAL DAILY 20 MILLIGRAMS 640410 RxNorm TAKE 20 MILLIGRAMS ORAL DAILY Loratadine 10MG Oral Tablet 08/20/2019 01/02/2022 ORAL DAILY 10 MILLIGRAMS 391073 RxNorm TAKE 10 MILLIGRAMS ORAL DAILY Multiple Vitamin Formula Oral Tablet 08/20/2019 03/18/2024 ORAL DAILY 1 unit(s) 8485603 RxNorm TAKE 1 E ACH ORAL DAILY Pramipexole Dihydrochlorid e 0.125MG Oral Tablet 08/20/2019 09/30/2023 ORAL BEDTIME 2 TABLET 577490 RxNorm TAKE 2 TABLET ORAL BEDTIME Probiotic 250MG Oral Capsule 08/20/2019 01/02/2022 ORAL DAILY 3 TABLET 528751 RxNorm TAKE 3 TABLET ORAL DAILY glipiZIDE 10MG Oral Tablet, Extended Release 08/20/2019 Unknown ORAL DAILY 10 MILLIGRAMS 268362 RxNorm TAKE 10 MILLIGRAMS ORAL DAILY metFORMIN HCl 1000MG Oral Tablet 08/20/2019 Unknown ORAL TWICE A DAY WITH FOOD 1000 MILLIGRAMS 590989 RxNorm TAKE 1000 MILLIGRAMS ORAL TWICE A DAY WITH FOOD Cephalexin 500MG Oral Tablet 08/20/2019 01/02/2022 ORAL THREE TIMES A DAY 1 TABLET 823343 RxNorm TAKE 1 TABLET ORAL THREE TIMES A DAY Keflex 500MG Oral Capsule 01/02/2022 09/30/2023 ORAL THREE TIMES A DAY 1 CAPSULE 225903 RxNorm TAKE 1 CAPSULE ORAL THREE TIMES A DAY Nystatin 655458Y/1ML Oral Suspension 01/02/2022 09/30/2023 ORAL FOUR TIMES A DAY 5 mL 384390 RxNorm TAKE 5 mL ORAL FOUR TIMES A DAY Cephalexin 500MG Oral Tablet 03/17/2024 03/19/2024 ORAL TWICE A DAY 1 TABLET 744434 RxNorm TAKE 1 TABLET ORAL TWICE A DAY x 7 days Acetaminophen 500MG Oral Tablet 03/18/2024 03/18/2024 ORAL NEEDED EVERY 6 HOURS 2 TABLET 717361 RxNorm TAKE 2 TABLET (OR 3 TABLETS regular strength 325mg) ORAL EVERY 6 HOURS FOR 1-2 DAYS THEN NEEDED FOR Fever/Pain (NEXT DOSES 6AM AND 12 NOON) Ibuprofen 200MG Oral Tablet 03/18/2024 03/18/2024 ORAL EVERY 6 HOURS 2 TABLET 335716 RxNorm TAKE 2 TABLET ORAL EVERY 6 HOURS FOR 24 HOURS THEN NEEDED. (NEXT DOSES at 4AM AND 10AM) Aspirin 81MG Oral Tablet, Enteric Coated 03/19/2024 Unknown ORAL DAILY 81 MILLIGRAMS 692543 RxNorm TAKE 81 MILLIGRAMS ORAL DAILY Carvedilol 6.25MG Oral Tablet 03/19/2024 Unknown ORAL TWICE A DAY 6.25 MILLIGRAMS 321643 RxNorm TAKE 6.25 MILLIGRAMS ORAL TWICE A DAY Fish Oil [place]-3 1000 MG Oral Capsule, Liquid Filled 03/19/2024 Unknown ORAL DAILY 1000 MG RxNorm TAKE 10 00 MG ORAL DAILY Gabapentin 600MG Oral Tablet 03/19/2024 Unknown ORAL TWICE A DAY 600 MILLIGRAMS 080473 RxNorm TAKE 600 MILLIGRAMS ORAL TWICE A DAY Lisinopril 10MG Oral Tablet 03/19/2024 Unknown ORAL DAILY 10 MILLIGRAMS 080351 RxNorm TAKE 10 MILLIGRAMS ORAL DAILY Multiple [...] Tablet 03/19/2024 Unknown ORAL BEDTIME 0.5 MILLIGRAMS 112919 RxNorm TAKE 0.5 MILLIGRAMS ORAL BEDTIME Ventolin HFA 0.09MG/1Actuat ion Inhalation Suspension 03/19/2024 Unknown INHAL ATION NEEDED EVERY 4 HOURS 2 unit(s) 884711 RxNorm 2 EACH INHALATION NEEDED EVERY 4 HOURS Victoza 6MG/1ML Subcutaneous Solution 03/19/2024 Unknown SUBCU TANEO US 1.8 MILLILITERS 944215 RxNorm INJECT 1.8 MILLILITERS SUBCUTANEOU S Cefdinir [...] Code Code System URINARY TRACT INFECTION active 952072 05 SNOMED-CT HYPOTENSION active 31570327 SNOMED-C T HYPOKALEMIA active 22265627 SNOMED-C T SEPSIS active 69487412 SNOMED-CT CIRRHOSIS - NON-ALCOHOLIC 01/02/2022 resolved 266 244671 SNOMED-CT HTN 08/20/2019 resolved 67671867 SNOMED-CT HIGH CHOLESTEROL 10/01/2023 resolved 61286953 SN OMED-CT PERSONAL HISTORY OF BLADDER CA 08/20/2019 resolved 273290535 SNOMED-CT NON-INSULIN DEPENDENT DIABETES MELLITUS 08/20/2019 resolved 95383028 SNOMED-CT 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
--- OUTSIDE RECORDS SUMMARY | 2024-05-18 16:47 | XMS_ITS ---
Author Organization Unknown Address [address] [place] [address] [phone] Phone Care Team Providers Care Smalltalk Developer Name Role Phone LYNN DANIELLE Registered Nurse Unavailable NOLAN Grimaldo Attending Unavailable JORGE [facility] Unavailable JOHN Guaman Primary Unavailable UNLISTED PROVIDER - REQUESTED Xhandoff Un available Social History Type Status Start Date End Date Code Code Syst em Smoking History Never smoker (Never Smoked) 116589730 SNOMED CT Sex Female Vital Signs Vital Sign Value Unit [place] Value [place] Unit Date/Time Recent/Initial? Code Code System Body Mass Index 25.51 kg/m2 01/02/2022 10:53 Initial 99812 -5 [facility] Systolic Blood Pressure 165 mm[Hg] 01/02/2022 10:53 Initial 8480- 6 [facility] Diastolic Blood Pressure 66 mm[Hg] 01/02/2022 10:53 Initial 8462- 4 [facility] Body Surface Area 1.62 m2 01/02/2022 10:53 Initial 3140- 1 LOINC Height 154.940 0 cm 61.00 in 01/02/2022 10:53 Initial 8302- 2 INC O2 Saturation 94 % 2021 10:53 Initial 17914 -5 [facility] Pulse 106.0 /min 01/02/2022 10:53 Initial 8867- 4 LOINC Respiration 19 /min 01/03/20 10:53 Initial 9279- 1 LOINC Temperature 35.6 Carolann 96.1 F 01/03/20 10:53 Initial 8310- 5 LOINC Weight 61.23 kg 135.00 lbs 01/02/2022 10:53 Initial 41610 -7 [facility] Medications Medication Start Date End Date Route Frequency Dose Code Code System Medication Instructions Home Meds Amitriptyline 50MG Oral Tablet 08/20/2019 01/02/2022 ORAL BEDTIME 50 MILLIGRAMS 900865 RxNorm TAKE 50 MILLIGRAMS ORAL BEDTIME Atorvastatin Calcium 20MG Oral Tablet 08/20/2019 Unknown ORAL BEDTIME 20 MILLIGRAMS 290979 RxNorm TAKE 20 MILLIGRAMS ORAL BEDTIME Fish Oil 1000MG Oral Capsule, Liquid Filled 08/20/2019 03/18/2024 ORAL DAILY 3 CAPSULE 607634 RxNorm TA KE 3 CAPSULE ORAL DAILY Gabapentin 800MG Oral Tablet 08/20/2019 03/18/2024 ORAL TWICE A DAY 1 TABLET 046588 RxNorm TAKE 1 TABLET ORAL TWICE A DAY Lisinopril 20MG Oral Tablet 08/20/2019 03/18/2024 ORAL DAILY 20 MILLIGRAMS 305439 RxNorm TAKE 20 MILLIGRAMS ORAL DAILY Loratadine 10MG Oral Tablet 08/20/2019 01/02/2022 ORAL DAILY 10 MILLIGRAMS 105930 RxNorm TAKE 10 MILLIGRAMS ORAL DAILY Multiple Vitamin Formula Oral Tablet 08/20/2019 03/18/2024 ORAL DAILY 1 unit(s) 0748989 RxNorm TAKE 1 E ACH ORAL DAILY Pramipexole Dihydrochlorid e 0.125MG Oral Tablet 08/20/2019 09/30/2023 ORAL BEDTIME 2 TABLET 544498 RxNorm TAKE 2 TABLET ORAL BEDTIME Probiotic 250MG Oral Capsule 08/20/2019 01/02/2022 ORAL DAILY 3 TABLET 578014 RxNorm TAKE 3 TABLET ORAL DAILY glipiZIDE 10MG Oral Tablet, Extended Release 08/20/2019 Unknown ORAL DAILY 10 MILLIGRAMS 444752 RxNorm TAKE 10 MILLIGRAMS ORAL DAILY metFORMIN HCl 1000MG Oral Tablet 08/20/2019 Unknown ORAL TWICE A DAY WITH FOOD 1000 MILLIGRAMS 880206 RxNorm TAKE 1000 MILLIGRAMS ORAL TWICE A DAY WITH FOOD Cephalexin 500MG Oral Tablet 08/20/2019 01/02/2022 ORAL THREE TIMES A DAY 1 TABLET 550081 RxNorm TAKE 1 TABLET ORAL THREE TIMES A DAY Keflex 500MG Oral Capsule 01/02/2022 09/30/2023 ORAL THREE TIMES A DAY 1 CAPSULE 076709 RxNorm TAKE 1 CAPSULE ORAL THREE TIMES A DAY Nystatin 917282C/1ML Oral Suspension 01/02/2022 09/30/2023 ORAL FOUR TIMES A DAY 5 mL 574354 RxNorm TAKE 5 mL ORAL FOUR TIMES A DAY Cephalexin 500MG Oral Tablet 03/17/2024 03/19/2024 ORAL TWICE A DAY 1 TABLET 071641 RxNorm TAKE 1 TABLET ORAL TWICE A DAY x 7 days Acetaminophen 500MG Oral Tablet 03/18/2024 03/18/2024 ORAL NEEDED EVERY 6 HOURS 2 TABLET 636607 RxNorm TAKE 2 TABLET (OR 3 TABLETS regular strength 325mg) ORAL EVERY 6 HOURS FOR 1-2 DAYS THEN NEEDED FOR Fever/Pain (NEXT DOSES 6AM AND 12 NOON) Ibuprofen 200MG Oral Tablet 03/18/2024 03/18/2024 ORAL EVERY 6 HOURS 2 TABLET 563611 RxNorm TAKE 2 TABLET ORAL EVERY 6 HOURS FOR 24 HOURS THEN NEEDED. (NEXT DOSES at 4AM AND 10AM) Aspirin 81MG Oral Tablet, Enteric Coated 03/19/2024 Unknown ORAL DAILY 81 MILLIGRAMS 714200 RxNorm TAKE 81 MILLIGRAMS ORAL DAILY Carvedilol 6.25MG Oral Tablet 03/19/2024 Unknown ORAL TWICE A DAY 6.25 MILLIGRAMS 19990607 RxNorm TAKE 6.25 MILLIGRAMS ORAL TWICE A DAY Fish Oil [place]-3 1000 MG Oral Capsule, Liquid Filled 03/19/2024 Unknown ORAL DAILY 1000 MG RxNorm TAKE 10 00 MG ORAL DAILY Gabapentin 600MG Oral Tablet 03/19/2024 Unknown ORAL TWICE A DAY 600 MILLIGRAMS 584689 RxNorm TAKE 600 MILLIGRAMS ORAL TWICE A DAY Lisinopril 10MG Oral Tablet 03/19/2024 Unknown ORAL DAILY 10 MILLIGRAMS 153283 RxNorm TAKE 10 MILLIGRAMS ORAL DAILY Multiple [...] Tablet 03/19/2024 Unknown ORAL BEDTIME 0.5 MILLIGRAMS 749657 RxNorm TAKE 0.5 MILLIGRAMS ORAL BEDTIME Ventolin HFA 0.09MG/1Actuat ion Inhalation Suspension 03/19/2024 Unknown INHAL ATION NEEDED EVERY 4 HOURS 2 unit(s) 347271 RxNorm 2 EACH INHALATION NEEDED EVERY 4 HOURS Victoza 6MG/1ML Subcutaneous Solution 03/19/2024 Unknown SUBCU TANEO US 1.8 MILLILITERS 058770 RxNorm INJECT 1.8 MILLILITERS SUBCUTANEOU S Cefdinir [...] Code Code System URINARY TRACT INFECTION active 614137 05 SNOMED-CT HYPOTENSION active 01947001 SNOMED-C T HYPOKALEMIA active 57081586 SNOMED-C T SEPSIS active 48332163 SNOMED-CT CIRRHOSIS - NON-ALCOHOLIC 01/02/2022 resolved 266 038373 SNOMED-CT HTN 08/20/2019 resolved 83851094 SNOMED-CT HIGH CHOLESTEROL 10/01/2023 resolved 53935064 SN OMED-CT PERSONAL HISTORY OF BLADDER CA 08/20/2019 resolved 050132127 SNOMED-CT NON-INSULIN DEPENDENT DIABETES MELLITUS 08/20/2019 resolved 02961180 SNOMED-CT 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
--- OUTSIDE RECORDS SUMMARY | 2024-05-18 16:48 | XMS_ITS ---
Author Organization Unknown Address [address] [place] [address] [phone] Phone Care Team Providers Care Occupational Therapist Aide Name Role Phone ERAN Viera Attending Unavailable Results XR CHEST 2V PA AND LATERAL - Completed: 03/19/2023 20:46 LOINC: 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 Patient Name: NICK MENDIETA MRN: Sex: : Age: [id number] F [id number] Account: Accession: Admit: StayType: [id number] 03/19/2023 O/P Ordered: Order ID: Submitted: Ordering Provider: 03/19/2023 09:53 [id number] RUPAL FREY Completed: Technologist: Resulted: 03/19/2023 09:53 [...] em Smoking History Never smoker (Never Smoked) 191999199 SNOMED CT Sex Female Medications Medication Start Date End Date Route Frequency Dose Code Code System Medication Instructions Home Meds Atorvastatin Calcium 20MG Oral Tablet 08/20/2019 Unknown ORAL BEDTIME 20 MILLIGRAMS 785899 RxNorm TAKE 20 MILLIGRAMS ORAL BEDTIME Fish Oil 1000MG Oral Capsule, Liquid Filled 08/20/2019 03/18/20 24 ORAL DAILY 3 CAPSULE 782976 RxNorm TAKE 3 CAPSULE ORAL DAILY Gabapentin 800MG Oral Tablet 08/20/2019 03/18/20 24 ORAL TWICE A DAY 1 TABLET 625554 RxNorm TAKE 1 TABLET ORAL TWICE A DAY Lisinopril 20MG Oral Tablet 08/20/2019 03/18/20 24 ORAL DAILY 20 MILLIGRAMS 682764 RxNorm TAKE 20 MILLIGRAMS ORAL DAILY Multiple Vitamin Formula Oral Tablet 08/20/2019 03/18/20 24 ORAL DAILY 1 unit(s) 4891020 RxNorm TAKE 1 EACH ORAL DAILY Pramipexole Dihydrochlorid e 0.125MG Oral Tablet 08/20/2019 09/30/19 24 ORAL BEDTIME 2 TABLET 915766 RxNorm TAKE 2 TABLET ORAL BEDTIME glipiZIDE 10MG Oral Tablet, Extended Release 08/20/2019 Unknown ORAL DAILY 10 MILLIGRAMS 249668 RxNorm TAKE 10 MILLIGRAMS ORAL DAILY metFORMIN HCl 1000MG Oral Tablet 08/20/2019 Unknown ORAL TWICE A DAY WITH FOOD 1000 MILLIGRAMS 323618 RxNorm TAKE 1000 MILLIGRAMS ORAL TWICE A DAY WITH FOOD Keflex 500MG Oral Capsule 01/02/2022 09/30/19 24 ORAL THREE TIMES A DAY 1 CAPSULE 854877 RxNorm TAKE 1 CAPSULE ORAL THREE TIMES A DAY Nystatin 041844J/1ML Oral Suspension 01/02/2022 09/30/19 24 ORAL FOUR TIMES A DAY 5 mL 882986 RxNorm TAKE 5 mL ORAL FOUR TIMES A DAY Cephalexin 500MG Oral Tablet 03/17/2024 03/19/20 24 ORAL TWICE A DAY 1 TABLET 967884 RxNorm TAKE 1 TABLET ORAL TWICE A DAY x 7 days Acetaminophen 500MG Oral Tablet 03/18/2024 03/18/20 24 ORAL NEEDED EVERY 6 HOURS 2 TABLET 490534 RxNorm TAKE 2 TABLET (OR 3 TABLETS regular strength 325mg) ORAL EVERY 6 HOURS FOR 1-2 DAYS THEN NEEDED FOR Fever/Pain (NEXT DOSES 6AM AND 12 NOON) Ibuprofen 200MG Oral Tablet 03/18/2024 03/18/20 24 ORAL EVERY 6 HOURS 2 TABLET 667205 RxNorm TAKE 2 TABLET ORAL EVERY 6 HOURS FOR 24 HOURS THEN NEEDED. (NEXT DOSES at 4AM AND 10AM) Aspirin 81MG Oral Tablet, Enteric Coated 03/19/2024 Unknown ORAL DAILY 81 MILLIGRAMS 535731 RxNorm TAKE 81 MILLIGRAMS ORAL DAILY Carvedilol 6.25MG Oral Tablet 03/19/2024 Unknown ORAL TWICE A DAY 6.25 MILLIGRAMS 19990607 RxNorm TAKE 6.25 MILLIGRAMS ORAL TWICE A DAY Fish Oil [place]-3 1000 MG Oral Capsule, Liquid Filled 03/19/2024 Unknown ORAL DAILY 1000 MG RxNorm TAKE 10 00 MG ORAL DAILY Gabapentin 600MG Oral Tablet 03/19/2024 Unknown ORAL TWICE A DAY 600 MILLIGRAMS 787348 RxNorm TAKE 600 MILLIGRAMS ORAL TWICE A DAY Lisinopril 10MG Oral Tablet 03/19/2024 Unknown ORAL DAILY 10 MILLIGRAMS 025452 RxNorm TAKE 10 MILLIGRAMS ORAL DAILY Multiple Vitamins Oral Tablet 03/19/2024 Unknown ORAL DAILY 1 unit(s) RxNorm TAKE 1 EACH ORAL DAILY Nitroglycerin 0.4MG Sublingual Tablet 03/19/2024 Unknown SUBLIN GUAL NEEDED 0.4 MILLIGRAMS 654248 RxNorm DISSOLVE 0.4 MILLIGRAMS SUBLINGUAL NEEDED Omeprazole 40MG Oral Capsule, Delayed Release 03/19/2024 Unknown ORAL DAILY 40 MILLIGRAMS 20020517 RxNorm TAKE 40 MILLIGRAMS ORAL DAILY Pramipexole Dihydrochlorid e 0.5MG Oral Tablet 03/19/2024 Unknown ORAL BEDTIME 0.5 MILLIGRAMS 321820 RxNorm TAKE 0.5 MILLIGRAMS ORAL BEDTIME Ventolin HFA 0.09MG/1Actuat ion Inhalation Suspension 03/19/2024 Unknown INHALA TION NEEDED EVERY 4 HOURS 2 unit(s) 926799 RxNorm 2 EACH INHALATION NEEDED EVERY 4 HOURS Victoza 6MG/1ML Subcutaneous Solution 03/19/2024 Unknown SUBCUT ANEOUS 1.8 MILLILITERS 564738 RxNorm INJECT 1.8 MILLILITERS SUBCUTANEOU S Cefdinir 300MG Oral Capsule 03/20/2024 Unknown ORAL TWICE A DAY 1 CAPSULE 341367 RxNorm TAKE 1 CAPSULE ORAL TWICE A [...] Code Code System URINARY TRACT INFECTION active 516287 05 SNOMED-CT HYPOTENSION active 52809345 SNOMED-C T HYPOKALEMIA active 43896909 SNOMED-C T SEPSIS active 51886339 SNOMED-CT CIRRHOSIS - NON-ALCOHOLIC 01/02/2022 resolved 266 915588 SNOMED-CT HTN 08/20/2019 resolved 14773613 SNOMED-CT HIGH CHOLESTEROL 10/01/2023 resolved 63078823 SN OMED-CT PERSONAL HISTORY OF BLADDER CA 08/20/2019 resolved 156032082 SNOMED-CT NON-INSULIN DEPENDENT DIABETES MELLITUS 08/20/2019 resolved 85267362 SNOMED-CT 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
--- OUTSIDE RECORDS SUMMARY | 2024-05-18 16:48 | XMS_ITS ---
Author Organization Unknown Address [address] [place] [address] [phone] Phone Care Team Providers Care Surveillance Systems Engineer Name Role Phone TYSON Waller Attending Unavailable ERAN Viera Primary Unavailable Social History Type Status Start Date End Date Code Code Syst em Smoking History Never smoker (Never Smoked) 285889363 SNOMED CT Sex Female Medications Medication Start Date End Date Route Frequency Dose Code Code System Medication Instructions Home Meds Atorvastatin Calcium 20MG Oral Tablet 08/20/2019 Unknown ORAL BEDTIME 20 MILLIGRAMS 649065 RxNorm TAKE 20 MILLIGRAMS ORAL BEDTIME Fish Oil 1000MG Oral Capsule, Liquid Filled 08/20/2019 03/18/20 24 ORAL DAILY 3 CAPSULE 710374 RxNorm TAKE 3 CAPSULE ORAL DAILY Gabapentin 800MG Oral Tablet 08/20/2019 03/18/20 24 ORAL TWICE A DAY 1 TABLET 351316 RxNorm TAKE 1 TABLET ORAL TWICE A DAY Lisinopril 20MG Oral Tablet 08/20/2019 03/18/20 24 ORAL DAILY 20 MILLIGRAMS 594951 RxNorm TAKE 20 MILLIGRAMS ORAL DAILY Multiple Vitamin Formula Oral Tablet 08/20/2019 03/18/20 24 ORAL DAILY 1 unit(s) 7898056 RxNorm TAKE 1 EACH ORAL DAILY Pramipexole Dihydrochlorid e 0.125MG Oral Tablet 08/20/2019 09/30/19 24 ORAL BEDTIME 2 TABLET 608593 RxNorm TAKE 2 TABLET ORAL BEDTIME glipiZIDE 10MG Oral Tablet, Extended Release 08/20/2019 Unknown ORAL DAILY 10 MILLIGRAMS 605812 RxNorm TAKE 10 MILLIGRAMS ORAL DAILY metFORMIN HCl 1000MG Oral Tablet 08/20/2019 Unknown ORAL TWICE A DAY WITH FOOD 1000 MILLIGRAMS 738067 RxNorm TAKE 1000 MILLIGRAMS ORAL TWICE A DAY WITH FOOD Keflex 500MG Oral Capsule 01/02/2022 09/30/19 24 ORAL THREE TIMES A DAY 1 CAPSULE 268092 RxNorm TAKE 1 CAPSULE ORAL THREE TIMES A DAY Nystatin 116138O/1ML Oral Suspension 01/02/2022 09/30/19 24 ORAL FOUR TIMES A DAY 5 mL 617364 RxNorm TAKE 5 mL ORAL FOUR TIMES A DAY Cephalexin 500MG Oral Tablet 03/17/2024 03/19/20 24 ORAL TWICE A DAY 1 TABLET 478770 RxNorm TAKE 1 TABLET ORAL TWICE A DAY x 7 days Acetaminophen 500MG Oral Tablet 03/18/2024 03/18/20 24 ORAL NEEDED EVERY 6 HOURS 2 TABLET 770056 RxNorm TAKE 2 TABLET (OR 3 TABLETS regular strength 325mg) ORAL EVERY 6 HOURS FOR 1-2 DAYS THEN NEEDED FOR Fever/Pain (NEXT DOSES 6AM AND 12 NOON) Ibuprofen 200MG Oral Tablet 03/18/2024 03/18/20 24 ORAL EVERY 6 HOURS 2 TABLET 896119 RxNorm TAKE 2 TABLET ORAL EVERY 6 HOURS FOR 24 HOURS THEN NEEDED. (NEXT DOSES at 4AM AND 10AM) Aspirin 81MG Oral Tablet, Enteric Coated 03/19/2024 Unknown ORAL DAILY 81 MILLIGRAMS 723266 RxNorm TAKE 81 MILLIGRAMS ORAL DAILY Carvedilol 6.25MG Oral Tablet 03/19/2024 Unknown ORAL TWICE A DAY 6.25 MILLIGRAMS 19990607 RxNorm TAKE 6.25 MILLIGRAMS ORAL TWICE A DAY Fish Oil [place]-3 1000 MG Oral Capsule, Liquid Filled 03/19/2024 Unknown ORAL DAILY 1000 MG RxNorm TAKE 10 00 MG ORAL DAILY Gabapentin 600MG Oral Tablet 03/19/2024 Unknown ORAL TWICE A DAY 600 MILLIGRAMS 258660 RxNorm TAKE 600 MILLIGRAMS ORAL TWICE A DAY Lisinopril 10MG Oral Tablet 03/19/2024 Unknown ORAL DAILY 10 MILLIGRAMS 593843 RxNorm TAKE 10 MILLIGRAMS ORAL DAILY Multiple Vitamins Oral Tablet 03/19/2024 Unknown ORAL DAILY 1 unit(s) RxNorm TAKE 1 EACH ORAL DAILY Nitroglycerin 0.4MG Sublingual Tablet 03/19/2024 Unknown SUBLIN GUAL NEEDED 0.4 MILLIGRAMS 19790615 RxNorm DISSOLVE 0.4 MILLIGRAMS SUBLINGUAL NEEDED Omeprazole 40MG Oral Capsule, Delayed Release 03/19/2024 Unknown ORAL DAILY 40 MILLIGRAMS 045911 RxNorm TAKE 40 MILLIGRAMS ORAL DAILY Pramipexole Dihydrochlorid e 0.5MG Oral Tablet 03/19/2024 Unknown ORAL BEDTIME 0.5 MILLIGRAMS 644536 RxNorm TAKE 0.5 MILLIGRAMS ORAL BEDTIME Ventolin HFA 0.09MG/1Actuat ion Inhalation Suspension 03/19/2024 Unknown INHALA TION NEEDED EVERY 4 HOURS 2 unit(s) 495564 RxNorm 2 EACH INHALATION NEEDED EVERY 4 HOURS Victoza 6MG/1ML Subcutaneous Solution 03/19/2024 Unknown SUBCUT ANEOUS 1.8 MILLILITERS 725704 RxNorm INJECT 1.8 MILLILITERS SUBCUTANEOU S Cefdinir [...] Code Code System URINARY TRACT INFECTION active 599054 05 SNOMED-CT HYPOTENSION active 74033341 SNOMED-C T HYPOKALEMIA active 25786767 SNOMED-C T SEPSIS active 93370914 SNOMED-CT CIRRHOSIS - NON-ALCOHOLIC 01/02/2022 resolved 266 214822 SNOMED-CT HTN 08/20/2019 resolved 90086189 SNOMED-CT HIGH CHOLESTEROL 10/01/2023 resolved 20746994 SN OMED-CT PERSONAL HISTORY OF BLADDER CA 08/20/2019 resolved 601114010 SNOMED-CT NON-INSULIN DEPENDENT DIABETES MELLITUS 08/20/2019 resolved 40834601 SNOMED-CT 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
--- OUTSIDE RECORDS SUMMARY | 2024-05-18 16:49 | XMS_ITS ---
Author Organization Unknown Address [address] [place] [address] [phone] Phone Care Team Providers Care Catering Attendant Name Role Phone MCCORMACKMORENITA ROJAS Sabino Attending Unavailable ERAN Viera Primary Unavailable Results TSH THYROID STIMULATING HORM ONE* - Collect Date/Time: 05/21/2023 11:48 [facility] ID: [id number] [address] [place] [address], [address] LOINC: 3014-8 Test Value Unit Reference Range Code Code System Flag TSH 2.546 uIU/mL L=0.360 H=3.740 3014-8 LOINC TROPONIN HIGH SENSITIVITY* - Collect Date/Time: 05/21/2023 11:48 [facility] ID: [id number] [address] [place] [address], [address] LOINC: 78421-8 Test Value Unit Reference Range Code Code System Flag TROPONIN HS 5.1 pg/mL L=0.0 H=60.4 Specimen seq. RANDOM BNP (PRO-B NATRIURETIC PEPTI DE) - Collect Date/Time: 05/21/2023 11:48 [facility] ID: [id number] [address] [place] [address], [address] LOINC: 48211-5 Test Value Unit Reference Range Code Code System Flag NT-proBNP 118.0 pg/mL L=0.0 H=450 99956-8 LOINC CBC W/ DIFFERENTIAL* - Colle ct Date/Time: 05/21/2023 11:48 [facility] ID: [id number] [address] [place] [address] [place], [address] LOINC: 18715-8 Test Value Unit Reference Range Code Code System Flag WBC 5.04 th/cmm L=5.00 H=10.00 6690-2 LOINC NEUT % 57.1 % L=40.0 H=80.0 LYMPH % 26.0 % L=10.0 H=50.0 MONO % 11.5 % L=2.0 H=12.0 37229-8 LOINC EOS % 4.4 % L=0.0 H=8.0 BASO % 0.8 % L=0.0 H=3.0 IG % 0.2 % L=0.0 H=1.1 2514-8 LOINC NRBC % 0.0 % L=0.0 H=0.0 94687-2 LOINC NEUT abs count 2.9 th/cmm L=1.6 H=8.4 751-8 LOINC LYMPH abs count 1.3 th/cmm L=1.5 H=4.0 731-0 LOINC L MONO abs count 0.6 th/cmm L=0.2 H=1.0 742-7 LOINC EOS abs count 0.2 th/cmm L=0.0 H=0.5 711-2 LOINC BASO abs count 0.0 th/cmm L=0.0 H=0.2 704-7 LOINC IG abs count 0.0 th/cmm L=0.0 H=0.1 00215-1 LOINC NRBC abs count 0.0 mil/cmm L=0.0 H=0.0 47535-4 LOINC RBC 4.15 mil/cmm L=3.90 H=5.40 789-8 [...] 05/21/2023 11:48 [facility] ID: [id number] [address] [place], [place], [address] LOINC: 63319-5 Test Value Unit Reference Range Code Code [...] H=34 2028-9 LOINC ANION GAP 7.7 mmol/L 74581-9 LOINC CALCIUM SERUM 9.4 mg/dL L=8.2 H=10.2 07757-8 LOINC AGE 82 years eGFR (non-Afr.Amer.) 64 mL/min 44740-7 LOINC eGFR (Afr-[place]) 78 mL/min 65735-8 LOINC Social History Type Status Start Date End Date Code Code Syst em Smoking History Never smoker (Never Smoked) 014456548 SNOMED CT Sex Female Medications Medication Start Date End Date Route Frequency Dose Code Code System Medication Instructions Home Meds Atorvastatin Calcium 20MG Oral Tablet 08/20/2019 Unknown ORAL BEDTIME 20 MILLIGRAMS 465190 RxNorm TAKE 20 MILLIGRAMS ORAL BEDTIME Fish Oil 1000MG Oral Capsule, Liquid Filled 08/20/2019 03/18/20 24 ORAL DAILY 3 CAPSULE 066797 RxNorm TAKE 3 CAPSULE ORAL DAILY Gabapentin 800MG Oral Tablet 08/20/2019 03/18/20 24 ORAL TWICE A DAY 1 TABLET 617934 RxNorm TAKE 1 TABLET ORAL TWICE A DAY Lisinopril 20MG Oral Tablet 08/20/2019 03/18/20 24 ORAL DAILY 20 MILLIGRAMS 656420 RxNorm TAKE 20 MILLIGRAMS ORAL DAILY Multiple Vitamin Formula Oral Tablet 08/20/2019 03/18/20 24 ORAL DAILY 1 unit(s) 1737502 RxNorm TAKE 1 EACH ORAL DAILY Pramipexole Dihydrochlorid e 0.125MG Oral Tablet 08/20/2019 09/30/19 24 ORAL BEDTIME 2 TABLET 541589 RxNorm TAKE 2 TABLET ORAL BEDTIME glipiZIDE 10MG Oral Tablet, Extended Release 08/20/2019 Unknown ORAL DAILY 10 MILLIGRAMS 288136 RxNorm TAKE 10 MILLIGRAMS ORAL DAILY metFORMIN HCl 1000MG Oral Tablet 08/20/2019 Unknown ORAL TWICE A DAY WITH FOOD 1000 MILLIGRAMS 440080 RxNorm TAKE 1000 MILLIGRAMS ORAL TWICE A DAY WITH FOOD Keflex 500MG Oral Capsule 01/02/2022 09/30/19 24 ORAL THREE TIMES A DAY 1 CAPSULE 500682 RxNorm TAKE 1 CAPSULE ORAL THREE TIMES A DAY Nystatin 726432L/1ML Oral Suspension 01/02/2022 09/30/19 24 ORAL FOUR TIMES A DAY 5 mL 250948 RxNorm TAKE 5 mL ORAL FOUR TIMES A DAY Cephalexin 500MG Oral Tablet 03/17/2024 03/19/20 24 ORAL TWICE A DAY 1 TABLET 762622 RxNorm TAKE 1 TABLET ORAL TWICE A DAY x 7 days Acetaminophen 500MG Oral Tablet 03/18/2024 03/18/20 24 ORAL NEEDED EVERY 6 HOURS 2 TABLET 196477 RxNorm TAKE 2 TABLET (OR 3 TABLETS regular strength 325mg) ORAL EVERY 6 HOURS FOR 1-2 DAYS THEN NEEDED FOR Fever/Pain (NEXT DOSES 6AM AND 12 NOON) Ibuprofen 200MG Oral Tablet 03/18/2024 03/18/20 24 ORAL EVERY 6 HOURS 2 TABLET 146572 RxNorm TAKE 2 TABLET ORAL EVERY 6 HOURS FOR 24 HOURS THEN NEEDED. (NEXT DOSES at 4AM AND 10AM) Aspirin 81MG Oral Tablet, Enteric Coated 03/19/2024 Unknown ORAL DAILY 81 MILLIGRAMS 766076 RxNorm TAKE 81 MILLIGRAMS ORAL DAILY Carvedilol 6.25MG Oral Tablet 03/19/2024 Unknown ORAL TWICE A DAY 6.25 MILLIGRAMS 236244 RxNorm TAKE 6.25 MILLIGRAMS ORAL TWICE A DAY Fish Oil [place]-3 1000 MG Oral Capsule, Liquid Filled 03/19/2024 Unknown ORAL DAILY 1000 MG RxNorm TAKE 10 00 MG ORAL DAILY Gabapentin 600MG Oral Tablet 03/19/2024 Unknown ORAL TWICE A DAY 600 MILLIGRAMS 912692 RxNorm TAKE 600 MILLIGRAMS ORAL TWICE A DAY Lisinopril 10MG Oral Tablet 03/19/2024 Unknown ORAL DAILY 10 MILLIGRAMS 859270 RxNorm TAKE 10 MILLIGRAMS ORAL DAILY Multiple [...] Tablet 03/19/2024 Unknown ORAL BEDTIME 0.5 MILLIGRAMS 795942 RxNorm TAKE 0.5 MILLIGRAMS ORAL BEDTIME Ventolin HFA 0.09MG/1Actuat ion Inhalation Suspension 03/19/2024 Unknown INHALA TION NEEDED EVERY 4 HOURS 2 unit(s) 591971 RxNorm 2 EACH INHALATION NEEDED EVERY 4 HOURS Victoza 6MG/1ML Subcutaneous Solution 03/19/2024 Unknown SUBCUT ANEOUS 1.8 MILLILITERS 345820 RxNorm INJECT 1.8 MILLILITERS SUBCUTANEOU S Cefdinir [...] Code Code System URINARY TRACT INFECTION active 962127 05 SNOMED-CT HYPOTENSION active 09745260 SNOMED-C T HYPOKALEMIA active 54214398 SNOMED-C T SEPSIS active 02610777 SNOMED-CT CIRRHOSIS - NON-ALCOHOLIC 01/02/2022 resolved 266 884632 SNOMED-CT HTN 08/20/2019 resolved 11736051 SNOMED-CT HIGH CHOLESTEROL 10/01/2023 resolved 27917320 SN OMED-CT PERSONAL HISTORY OF BLADDER CA 08/20/2019 resolved 291720844 SNOMED-CT NON-INSULIN DEPENDENT DIABETES MELLITUS 08/20/2019 resolved 73089162 SNOMED-CT 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 759814296 SNOMED-CT Allergies and Adverse Reactions Allergy Substance Reaction Severity Start Date Concern Status Co de Code System CODEINE Active 7731 RxNorm Plan of Treatment PFT COMPLETE W BROCHODILATER 04/23/2024 NM MPI STR/RST 05/15/2023 CT CHEST W/O CONTRAST 05/18/2022 CT CHEST W/O CONTRAST 03/26/2022 MRI BRAIN W/O CONTRAST 01/25/2021 Encounters Encounter Diagnosis Start Date Code Code Sys tem Dyspnea 05/21/2023 [id number] SNOMED-CT Personal Care Team Section Performer Name Performer Role Active Date Inactive Da te
--- OUTSIDE RECORDS SUMMARY | 2024-05-18 16:49 | XMS_ITS ---
Author Organization Unknown Address [address] [place] [phone] Phone Care Team Providers Care Ict Business Development Manager Name Role Phone MCCORMACKMORENITA ROJAS Sabino Attending Unavailable ERAN Viera Primary Unavailable Results TROPONIN HIGH SENSITIVITY* - Collect Date/Time: 08/28/2023 12:51 [facility] ID: [id number] [address] [place] [address], [address] LOINC: 55344-0 Test Value Unit Reference Range Code Code System Flag TROPONIN HS < 4.0 pg/mL L=0.0 H=60.4 Specimen seq. RANDOM LIPID PANEL* - Collect Date/ Time: 08/28/2023 12:51 [facility] ID: [id number] [address] [place] [address], [id number] LOINC: Test Value Unit Reference Range Code Code System Flag FASTING STATUS: NON FASTING CHOLESTEROL 98 mg/dL L=0 H=200 2093-3 LOINC TRIGLYCERIDES 155 mg/dL L=57 H=256 2571-8 LOINC HDL 41 mg/dL L=38 H=92 2085-9 LOINC non-HDL-C 57 mg/dL L=0 H=160 29912-6 LOINC LDL (CALC) 26 mg/dL L=0 H=130 69869-0 LOINC % HDL 41.8 % Chol/HDL Ratio 2.4 L=0.0 H=4.4 9830-1 LOINC CHD Relative Risk 0.5 x Avg L=0.0 H=1.0 LDL/HDL Ratio 0.6 L=0.0 H=3.2 25675-1 LOINC CHD Relative Risk. 0.2 x Avg L=0.0 H=1.0 HEPATIC FUNCTION PANEL - Col lect Date/Time: 08/28/2023 12:51 [facility] ID: [id number] [address] [place], [place], [id number] LOINC: 84616-2 Test Value Unit Reference Range Code Code [...] DIFFERENTIAL* - Colle ct Date/Time: 08/28/2023 12:51 [facility] ID: [id number] [address] [place], [place], [address] LOINC: 41909-9 Test Value Unit Reference Range Code Code System Flag WBC 4.62 th/cmm L=5.00 H=10.00 6690-2 LOINC L NEUT % 60.7 % L=40.0 H=80.0 LYMPH % 29.2 % L=10.0 H=50.0 MONO % 8.2 % L=2.0 H=12.0 57248-6 LOINC EOS % 1.3 % L=0.0 H=8.0 BASO % 0.4 % L=0.0 H=3.0 IG % 0.2 % L=0.0 H=1.1 2514-8 LOINC NRBC % 0.0 % L=0.0 H=0.0 98874-9 LOINC NEUT abs count 2.8 th/cmm L=1.6 H=8.4 751-8 LOINC LYMPH abs count 1.4 th/cmm L=1.5 H=4.0 731-0 LOINC L MONO abs count 0.4 th/cmm L=0.2 H=1.0 742-7 LOINC EOS abs count 0.1 th/cmm L=0.0 H=0.5 711-2 LOINC BASO abs count 0.0 th/cmm L=0.0 H=0.2 704-7 LOINC IG abs count 0.0 th/cmm L=0.0 H=0.1 63341-2 LOINC NRBC abs count 0.0 mil/cmm L=0.0 H=0.0 28961-7 LOINC RBC 4.10 mil/cmm L=3.90 H=5.40 789-8 [...] PEPTI [place]) - Collect Date/Time: 08/28/2023 12:51 [facility] ID: [id number] [address] [place] [address], [address] LOINC: 81591-8 Test Value Unit Reference Range Code Code System Flag NT-proBNP 205.0 pg/mL L=0.0 H=450 15844-8 LOINC BASIC METABOLIC PANEL (BMP) - Collect Date/Time: 08/28/2023 12:51 [facility] ID: [id number] [address] [place] [address], [address] LOINC: 28952-0 Test Value Unit Reference Range Code Code [...] H=34 2028-9 LOINC ANION GAP 9.4 mmol/L 05035-2 LOINC CALCIUM SERUM 9.7 mg/dL L=8.2 H=10.2 53743-0 LOINC AGE 83 years eGFR (non-Afr.Amer.) 71 mL/min 29206-5 LOINC eGFR (Afr-Mongolian) 86 mL/min 44211-2 LOINC Social History Type Status Start Date End Date Code Code Syst em Smoking History Never smoker (Never Smoked) 453028191 SNOMED CT Sex Female Medications Medication Start Date End Date Route Frequency Dose Code Code System Medication Instructions Home Meds Atorvastatin Calcium 20MG Oral Tablet 08/20/2019 Unknown ORAL BEDTIME 20 MILLIGRAMS 711752 RxNorm TAKE 20 MILLIGRAMS ORAL BEDTIME Fish Oil 1000MG Oral Capsule, Liquid Filled 08/20/2019 03/18/20 24 ORAL DAILY 3 CAPSULE 591116 RxNorm TAKE 3 CAPSULE ORAL DAILY Gabapentin 800MG Oral Tablet 08/20/2019 03/18/20 24 ORAL TWICE A DAY 1 TABLET 893194 RxNorm TAKE 1 TABLET ORAL TWICE A DAY Lisinopril 20MG Oral Tablet 08/20/2019 03/18/20 24 ORAL DAILY 20 MILLIGRAMS 896659 RxNorm TAKE 20 MILLIGRAMS ORAL DAILY Multiple Vitamin Formula Oral Tablet 08/20/2019 03/18/20 24 ORAL DAILY 1 unit(s) 7650459 RxNorm TAKE 1 EACH ORAL DAILY Pramipexole Dihydrochlorid e 0.125MG Oral Tablet 08/20/2019 09/30/19 24 ORAL BEDTIME 2 TABLET 785443 RxNorm TAKE 2 TABLET ORAL BEDTIME glipiZIDE 10MG Oral Tablet, Extended Release 08/20/2019 Unknown ORAL DAILY 10 MILLIGRAMS 163383 RxNorm TAKE 10 MILLIGRAMS ORAL DAILY metFORMIN HCl 1000MG Oral Tablet 08/20/2019 Unknown ORAL TWICE A DAY WITH FOOD 1000 MILLIGRAMS 719755 RxNorm TAKE 1000 MILLIGRAMS ORAL TWICE A DAY WITH FOOD Keflex 500MG Oral Capsule 01/02/2022 09/30/19 24 ORAL THREE TIMES A DAY 1 CAPSULE 890801 RxNorm TAKE 1 CAPSULE ORAL THREE TIMES A DAY Nystatin 990288O/1ML Oral Suspension 01/02/2022 09/30/19 24 ORAL FOUR TIMES A DAY 5 mL 277015 RxNorm TAKE 5 mL ORAL FOUR TIMES A DAY Cephalexin 500MG Oral Tablet 03/17/2024 03/19/20 24 ORAL TWICE A DAY 1 TABLET 513038 RxNorm TAKE 1 TABLET ORAL TWICE A DAY x 7 days Acetaminophen 500MG Oral Tablet 03/18/2024 03/18/20 24 ORAL NEEDED EVERY 6 HOURS 2 TABLET 131582 RxNorm TAKE 2 TABLET (OR 3 TABLETS regular strength 325mg) ORAL EVERY 6 HOURS FOR 1-2 DAYS THEN NEEDED FOR Fever/Pain (NEXT DOSES 6AM AND 12 NOON) Ibuprofen 200MG Oral Tablet 03/18/2024 03/18/20 24 ORAL EVERY 6 HOURS 2 TABLET 350003 RxNorm TAKE 2 TABLET ORAL EVERY 6 HOURS FOR 24 HOURS THEN NEEDED. (NEXT DOSES at 4AM AND 10AM) Aspirin 81MG Oral Tablet, Enteric Coated 03/19/2024 Unknown ORAL DAILY 81 MILLIGRAMS 312056 RxNorm TAKE 81 MILLIGRAMS ORAL DAILY Carvedilol 6.25MG Oral Tablet 03/19/2024 Unknown ORAL TWICE A DAY 6.25 MILLIGRAMS 262174 RxNorm TAKE 6.25 MILLIGRAMS ORAL TWICE A DAY Fish Oil [place]-3 1000 MG Oral Capsule, Liquid Filled 03/19/2024 Unknown ORAL DAILY 1000 MG RxNorm TAKE 10 00 MG ORAL DAILY Gabapentin 600MG Oral Tablet 03/19/2024 Unknown ORAL TWICE A DAY 600 MILLIGRAMS 527828 RxNorm TAKE 600 MILLIGRAMS ORAL TWICE A DAY Lisinopril 10MG Oral Tablet 03/19/2024 Unknown ORAL DAILY 10 MILLIGRAMS 661144 RxNorm TAKE 10 MILLIGRAMS ORAL DAILY Multiple [...] Tablet 03/19/2024 Unknown ORAL BEDTIME 0.5 MILLIGRAMS 595047 RxNorm TAKE 0.5 MILLIGRAMS ORAL BEDTIME Ventolin HFA 0.09MG/1Actuat ion Inhalation Suspension 03/19/2024 Unknown INHALA TION NEEDED EVERY 4 HOURS 2 unit(s) 055726 RxNorm 2 EACH INHALATION NEEDED EVERY 4 HOURS Victoza 6MG/1ML Subcutaneous Solution 03/19/2024 Unknown SUBCUT ANEOUS 1.8 MILLILITERS 746067 RxNorm INJECT 1.8 MILLILITERS SUBCUTANEOU S Cefdinir [...] Code Code System URINARY TRACT INFECTION active 740509 05 SNOMED-CT HYPOTENSION active 96886350 SNOMED-C T HYPOKALEMIA active 71286484 SNOMED-C T SEPSIS active 80721217 SNOMED-CT CIRRHOSIS - NON-ALCOHOLIC 01/02/2022 resolved 266 944168 SNOMED-CT HTN 08/20/2019 resolved 79743373 SNOMED-CT HIGH CHOLESTEROL 10/01/2023 resolved 03113478 SN OMED-CT PERSONAL HISTORY OF BLADDER CA 08/20/2019 resolved 692155669 SNOMED-CT NON-INSULIN DEPENDENT DIABETES MELLITUS 08/20/2019 resolved 08660191 SNOMED-CT 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 277721243 SNOMED-CT Allergies and Adverse Reactions Allergy Substance Reaction Severity Start Date Concern Status Co de Code System CODEINE Active 7557 RxNorm Plan of Treatment PFT COMPLETE W BROCHODILATER 04/23/2024 NM MPI STR/RST 05/15/2023 CT CHEST W/O CONTRAST 05/18/2022 CT CHEST W/O CONTRAST 03/26/2022 MRI BRAIN W/O CONTRAST 01/25/2021 Encounters Encounter Diagnosis Start Date Code Code Sys tem Dyspnea 08/28/2023 403168257 SNOMED-CT Personal Care Team Section Performer Name Performer Role Active Date Inactive Da te
--- OUTSIDE RECORDS SUMMARY | 2024-05-18 16:49 | XMS_ITS ---
Author Organization Unknown Address [address] [place] [address] [phone] Phone Care Team Providers Care Head Miller Name Role Phone KSENIA Gallo Attending Unavailable ERAN Viera Primary Unavailable Results BNP (PRO-B NATRIURETIC PEPTI [place]) - Collect Date/Time: 05/06/2023 11:05 [facility] ID: [id number] [address] [place] [address], [address] LOINC: 21201-0 Test Value Unit Reference Range Code Code System Flag NT-proBNP 63.0 pg/mL L=0.0 H=450 06589-6 LOINC TROPONIN HIGH SENSITIVITY* - Collect Date/Time: 05/06/2023 11:05 [facility] ID: [id number] [address] [place] [address], [address] LOINC: 17846-9 Test Value Unit Reference Range Code Code System Flag TROPONIN HS 4.8 pg/mL L=0.0 H=60.4 Specimen seq. RANDOM TSH THYROID STIMULATING HORM ONE* - Collect Date/Time: 05/06/2023 11:05 [facility] ID: [id number] [address] [place] [address], [address] LOINC: 3014-8 Test Value Unit Reference Range Code Code System Flag TSH 1.873 uIU/mL L=0.360 H=3.740 3014-8 LOINC HEPATIC FUNCTION PANEL - Col lect Date/Time: 05/06/2023 11:05 [facility] ID: [id number] [address] [place] [address], [id number] LOINC: 82572-6 Test Value Unit Reference Range Code Code [...] PANEL* - Collect Date/ Time: 05/06/2023 11:05 [facility] ID: [id number] [address] [place], [place], [phone] LOINC: Test Value Unit Reference Range Code Code System Flag FASTING STATUS: NOT KNOWN CHOLESTEROL 102 mg/dL L=0 H=200 2093-3 LOINC TRIGLYCERIDES 134 mg/dL L=57 H=256 2571-8 LOINC HDL 42 mg/dL L=38 H=92 2085-9 LOINC non-HDL-C 60 mg/dL L=0 H=160 72313-7 LOINC LDL (CALC) 33 mg/dL L=0 H=130 45379-5 LOINC % HDL 41.2 % Chol/HDL Ratio 2.4 L=0.0 H=4.4 9830-1 LOINC CHD Relative Risk 0.5 x Avg L=0.0 H=1.0 LDL/HDL Ratio 0.8 L=0.0 H=3.2 17819-9 LOINC CHD Relative Risk. 0.2 x Avg L=0.0 H=1.0 CBC W/ DIFFERENTIAL* - Colle ct Date/Time: 05/06/2023 11:05 [facility] ID: [id number] [address] [place] [address], [place], [address] LOINC: 80912-9 Test Value Unit Reference Range Code Code System Flag WBC 4.65 th/cmm L=5.00 H=10.00 6690-2 LOINC L NEUT % 64.5 % L=40.0 H=80.0 LYMPH % 20.0 % L=10.0 H=50.0 MONO % 12.3 % L=2.0 H=12.0 02323-7 LOINC H EOS % 2.6 % L=0.0 H=8.0 BASO % 0.4 % L=0.0 H=3.0 IG % 0.2 % L=0.0 H=1.1 2514-8 LOINC NRBC % 0.0 % L=0.0 H=0.0 93319-6 LOINC NEUT abs count 3.0 th/cmm L=1.6 H=8.4 751-8 LOINC LYMPH abs count 0.9 th/cmm L=1.5 H=4.0 731-0 LOINC L MONO abs count 0.6 th/cmm L=0.2 H=1.0 742-7 LOINC EOS abs count 0.1 th/cmm L=0.0 H=0.5 711-2 LOINC BASO abs count 0.0 th/cmm L=0.0 H=0.2 704-7 LOINC IG abs count 0.0 th/cmm L=0.0 H=0.1 33585-5 LOINC NRBC abs count 0.0 mil/cmm L=0.0 H=0.0 91386-4 LOINC RBC 4.22 mil/cmm L=3.90 H=5.40 789-8 [...] PANEL (BMP) - Collect Date/Time: 05/06/2023 11:05 [facility] ID: [id number] [address] [place] [address], [address] LOINC: 79400-1 Test Value Unit Reference Range Code Code [...] H=34 2028-9 LOINC ANION GAP 9.8 mmol/L 80430-0 LOINC CALCIUM SERUM 9.4 mg/dL L=8.2 H=10.2 88440-7 LOINC AGE 82 years eGFR (non-Afr.Amer.) 59 mL/min 24942-0 LOINC eGFR (Afr-Tunisian) 72 mL/min 92903-3 LOINC Social History Type Status Start Date End Date Code Code Syst em Smoking History Never smoker (Never Smoked) [id number] SNOMED CT Sex Female Medications Medication Start Date End Date Route Frequency Dose Code Code System Medication Instructions Home Meds Atorvastatin Calcium 20MG Oral Tablet 08/20/2019 Unknown ORAL BEDTIME 20 MILLIGRAMS 885664 RxNorm TAKE 20 MILLIGRAMS ORAL BEDTIME Fish Oil 1000MG Oral Capsule, Liquid Filled 08/20/2019 03/18/20 24 ORAL DAILY 3 CAPSULE 152448 RxNorm TAKE 3 CAPSULE ORAL DAILY Gabapentin 800MG Oral Tablet 08/20/2019 03/18/20 24 ORAL TWICE A DAY 1 TABLET 517634 RxNorm TAKE 1 TABLET ORAL TWICE A DAY Lisinopril 20MG Oral Tablet 08/20/2019 03/18/20 24 ORAL DAILY 20 MILLIGRAMS 069321 RxNorm TAKE 20 MILLIGRAMS ORAL DAILY Multiple Vitamin Formula Oral Tablet 08/20/2019 03/18/20 24 ORAL DAILY 1 unit(s) 5362297 RxNorm TAKE 1 EACH ORAL DAILY Pramipexole Dihydrochlorid e 0.125MG Oral Tablet 08/20/2019 09/30/19 24 ORAL BEDTIME 2 TABLET 326892 RxNorm TAKE 2 TABLET ORAL BEDTIME glipiZIDE 10MG Oral Tablet, Extended Release 08/20/2019 Unknown ORAL DAILY 10 MILLIGRAMS 718445 RxNorm TAKE 10 MILLIGRAMS ORAL DAILY metFORMIN HCl 1000MG Oral Tablet 08/20/2019 Unknown ORAL TWICE A DAY WITH FOOD 1000 MILLIGRAMS 496816 RxNorm TAKE 1000 MILLIGRAMS ORAL TWICE A DAY WITH FOOD Keflex 500MG Oral Capsule 01/02/2022 09/30/19 24 ORAL THREE TIMES A DAY 1 CAPSULE 587818 RxNorm TAKE 1 CAPSULE ORAL THREE TIMES A DAY Nystatin 301242X/1ML Oral Suspension 01/02/2022 09/30/19 24 ORAL FOUR TIMES A DAY 5 mL 332231 RxNorm TAKE 5 mL ORAL FOUR TIMES A DAY Cephalexin 500MG Oral Tablet 03/17/2024 03/19/20 24 ORAL TWICE A DAY 1 TABLET 724664 RxNorm TAKE 1 TABLET ORAL TWICE A DAY x 7 days Acetaminophen 500MG Oral Tablet 03/18/2024 03/18/20 24 ORAL NEEDED EVERY 6 HOURS 2 TABLET 172530 RxNorm TAKE 2 TABLET (OR 3 TABLETS regular strength 325mg) ORAL EVERY 6 HOURS FOR 1-2 DAYS THEN NEEDED FOR Fever/Pain (NEXT DOSES 6AM AND 12 NOON) Ibuprofen 200MG Oral Tablet 03/18/2024 03/18/20 24 ORAL EVERY 6 HOURS 2 TABLET 529988 RxNorm TAKE 2 TABLET ORAL EVERY 6 HOURS FOR 24 HOURS THEN NEEDED. (NEXT DOSES at 4AM AND 10AM) Aspirin 81MG Oral Tablet, Enteric Coated 03/19/2024 Unknown ORAL DAILY 81 MILLIGRAMS 577989 RxNorm TAKE 81 MILLIGRAMS ORAL DAILY Carvedilol 6.25MG Oral Tablet 03/19/2024 Unknown ORAL TWICE A DAY 6.25 MILLIGRAMS 453903 RxNorm TAKE 6.25 MILLIGRAMS ORAL TWICE A DAY Fish Oil [place]-3 1000 MG Oral Capsule, Liquid Filled 03/19/2024 Unknown ORAL DAILY 1000 MG RxNorm TAKE 10 00 MG ORAL DAILY Gabapentin 600MG Oral Tablet 03/19/2024 Unknown ORAL TWICE A DAY 600 MILLIGRAMS 180984 RxNorm TAKE 600 MILLIGRAMS ORAL TWICE A DAY Lisinopril 10MG Oral Tablet 03/19/2024 Unknown ORAL DAILY 10 MILLIGRAMS 579553 RxNorm TAKE 10 MILLIGRAMS ORAL DAILY Multiple [...] Tablet 03/19/2024 Unknown ORAL BEDTIME 0.5 MILLIGRAMS 823877 RxNorm TAKE 0.5 MILLIGRAMS ORAL BEDTIME Ventolin HFA 0.09MG/1Actuat ion Inhalation Suspension 03/19/2024 Unknown INHALA TION NEEDED EVERY 4 HOURS 2 unit(s) 880481 RxNorm 2 EACH INHALATION NEEDED EVERY 4 HOURS Victoza 6MG/1ML Subcutaneous Solution 03/19/2024 Unknown SUBCUT ANEOUS 1.8 MILLILITERS 708527 RxNorm INJECT 1.8 MILLILITERS SUBCUTANEOU S Cefdinir [...] Code Code System URINARY TRACT INFECTION active 799716 05 SNOMED-CT HYPOTENSION active 62169773 SNOMED-C T HYPOKALEMIA active 50370455 SNOMED-C T SEPSIS active 46691869 SNOMED-CT CIRRHOSIS - NON-ALCOHOLIC 01/02/2022 resolved 266 935838 SNOMED-CT HTN 08/20/2019 resolved 42359345 SNOMED-CT HIGH CHOLESTEROL 10/01/2023 resolved 33164428 SN OMED-CT PERSONAL HISTORY OF BLADDER CA 08/20/2019 resolved 903813611 SNOMED-CT NON-INSULIN DEPENDENT DIABETES MELLITUS 08/20/2019 resolved 86129895 SNOMED-CT 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
--- OUTSIDE RECORDS SUMMARY | 2024-05-18 16:49 | XMS_ITS ---
Author Organization Unknown Address [address] [place] [address] [phone] Phone Care Team Providers Care Charge Account Clerk Name Role Phone LYNN VILLEDA Attending Unavailable ERAN Viera Primary Unavailable Results NM MPI COMPLETE - Completed: 05/15/2023 15:43 LOINC: [place], [place] [address] PACS INSULATION NOZZLEMAN REPORT Patient Name: NICK MENDIETA MRN: Sex: : Age: [id number] F 1940 82 Account: Accession: Admit: StayType: [id number] 05/15/2023 CLINIC Ordered: Order ID: Submitted: Ordering Provider: 05/15/2023 14:10 [id number] HTP CHRISTIANA BAILEY Completed: Technologist: Resulted: 05/15/2023 15:43 HTP 05/15/2023 16:13 Exercise Nuclear Stress Test Date: 05/15/2023 02:18 PM EST Ordering Provider: CHRISTIANA BAILEY Referring Provider: CHRISTIANA BAILEY ID number: [id number] Date of : 1940 Age: 82Y Indication [...] em Smoking History Never smoker (Never Smoked) 700015700 SNOMED CT Sex Female Medications Medication Start Date End Date Route Frequency Dose Code Code System Medication Instructions Home Meds Atorvastatin Calcium 20MG Oral Tablet 08/20/2019 Unknown ORAL BEDTIME 20 MILLIGRAMS 350715 RxNorm TAKE 20 MILLIGRAMS ORAL BEDTIME Fish Oil 1000MG Oral Capsule, Liquid Filled 08/20/2019 03/18/20 24 ORAL DAILY 3 CAPSULE 032497 RxNorm TAKE 3 CAPSULE ORAL DAILY Gabapentin 800MG Oral Tablet 08/20/2019 03/18/20 24 ORAL TWICE A DAY 1 TABLET 207422 RxNorm TAKE 1 TABLET ORAL TWICE A DAY Lisinopril 20MG Oral Tablet 08/20/2019 03/18/20 24 ORAL DAILY 20 MILLIGRAMS 826987 RxNorm TAKE 20 MILLIGRAMS ORAL DAILY Multiple Vitamin Formula Oral Tablet 08/20/2019 03/18/20 24 ORAL DAILY 1 unit(s) 4599877 RxNorm TAKE 1 EACH ORAL DAILY Pramipexole Dihydrochlorid e 0.125MG Oral Tablet 08/20/2019 09/30/19 24 ORAL BEDTIME 2 TABLET 415120 RxNorm TAKE 2 TABLET ORAL BEDTIME glipiZIDE 10MG Oral Tablet, Extended Release 08/20/2019 Unknown ORAL DAILY 10 MILLIGRAMS 652710 RxNorm TAKE 10 MILLIGRAMS ORAL DAILY metFORMIN HCl 1000MG Oral Tablet 08/20/2019 Unknown ORAL TWICE A DAY WITH FOOD 1000 MILLIGRAMS 850774 RxNorm TAKE 1000 MILLIGRAMS ORAL TWICE A DAY WITH FOOD Keflex 500MG Oral Capsule 01/02/2022 09/30/19 24 ORAL THREE TIMES A DAY 1 CAPSULE 039331 RxNorm TAKE 1 CAPSULE ORAL THREE TIMES A DAY Nystatin 307495S/1ML Oral Suspension 01/02/2022 09/30/19 24 ORAL FOUR TIMES A DAY 5 mL 682606 RxNorm TAKE 5 mL ORAL FOUR TIMES A DAY Cephalexin 500MG Oral Tablet 03/17/2024 03/19/20 24 ORAL TWICE A DAY 1 TABLET 118480 RxNorm TAKE 1 TABLET ORAL TWICE A DAY x 7 days Acetaminophen 500MG Oral Tablet 03/18/2024 03/18/20 24 ORAL NEEDED EVERY 6 HOURS 2 TABLET 483728 RxNorm TAKE 2 TABLET (OR 3 TABLETS regular strength 325mg) ORAL EVERY 6 HOURS FOR 1-2 DAYS THEN NEEDED FOR Fever/Pain (NEXT DOSES 6AM AND 12 NOON) Ibuprofen 200MG Oral Tablet 03/18/2024 03/18/20 24 ORAL EVERY 6 HOURS 2 TABLET 440196 RxNorm TAKE 2 TABLET ORAL EVERY 6 HOURS FOR 24 HOURS THEN NEEDED. (NEXT DOSES at 4AM AND 10AM) Aspirin 81MG Oral Tablet, Enteric Coated 03/19/2024 Unknown ORAL DAILY 81 MILLIGRAMS 280425 RxNorm TAKE 81 MILLIGRAMS ORAL DAILY Carvedilol 6.25MG Oral Tablet 03/19/2024 Unknown ORAL TWICE A DAY 6.25 MILLIGRAMS 451788 RxNorm TAKE 6.25 MILLIGRAMS ORAL TWICE A DAY Fish Oil [place]-3 1000 MG Oral Capsule, Liquid Filled 03/19/2024 Unknown ORAL DAILY 1000 MG RxNorm TAKE 10 00 MG ORAL DAILY Gabapentin 600MG Oral Tablet 03/19/2024 Unknown ORAL TWICE A DAY 600 MILLIGRAMS 457170 RxNorm TAKE 600 MILLIGRAMS ORAL TWICE A DAY Lisinopril 10MG Oral Tablet 03/19/2024 Unknown ORAL DAILY 10 MILLIGRAMS 298747 RxNorm TAKE 10 MILLIGRAMS ORAL DAILY Multiple [...] Tablet 03/19/2024 Unknown ORAL BEDTIME 0.5 MILLIGRAMS 830081 RxNorm TAKE 0.5 MILLIGRAMS ORAL BEDTIME Ventolin HFA 0.09MG/1Actuat ion Inhalation Suspension 03/19/2024 Unknown INHALA TION NEEDED EVERY 4 HOURS 2 unit(s) 560431 RxNorm 2 EACH INHALATION NEEDED EVERY 4 HOURS Victoza 6MG/1ML Subcutaneous Solution 03/19/2024 Unknown SUBCUT ANEOUS 1.8 MILLILITERS 789710 RxNorm INJECT 1.8 MILLILITERS SUBCUTANEOU S Cefdinir [...] Code Code System URINARY TRACT INFECTION active 147477 05 SNOMED-CT HYPOTENSION active 12419019 SNOMED-C T HYPOKALEMIA active 33212523 SNOMED-C T SEPSIS active 65530994 SNOMED-CT CIRRHOSIS - NON-ALCOHOLIC 01/02/2022 resolved 266 540673 SNOMED-CT HTN 08/20/2019 resolved 95778010 SNOMED-CT HIGH CHOLESTEROL 10/01/2023 resolved 63214195 SN OMED-CT PERSONAL HISTORY OF BLADDER CA 08/20/2019 resolved 546748362 SNOMED-CT NON-INSULIN DEPENDENT DIABETES MELLITUS 08/20/2019 resolved 14175848 SNOMED-CT 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
--- OUTSIDE RECORDS SUMMARY | 2024-05-18 16:50 | XMS_ITS ---
Author Organization Unknown Address [address] [place] [address] [phone] Phone Care Team Providers Care Cutting Table Operator First Name Role Phone KSENIA Gallo Attending Unavailable REAN Viera Primary Unavailable Social History Type Status Start Date End Date Code Code Syst em Smoking History Never smoker (Never Smoked) [id number] SNOMED CT Sex Female Medications Medication Start Date End Date Route Frequency Dose Code Code System Medication Instructions Home Meds Atorvastatin Calcium 20MG Oral Tablet 08/20/2019 Unknown ORAL BEDTIME 20 MILLIGRAMS 087964 RxNorm TAKE 20 MILLIGRAMS ORAL BEDTIME Fish Oil 1000MG Oral Capsule, Liquid Filled 08/20/2019 03/18/20 24 ORAL DAILY 3 CAPSULE 700901 RxNorm TAKE 3 CAPSULE ORAL DAILY Gabapentin 800MG Oral Tablet 08/20/2019 03/18/20 24 ORAL TWICE A DAY 1 TABLET 747383 RxNorm TAKE 1 TABLET ORAL TWICE A DAY Lisinopril 20MG Oral Tablet 08/20/2019 03/18/20 24 ORAL DAILY 20 MILLIGRAMS 539308 RxNorm TAKE 20 MILLIGRAMS ORAL DAILY Multiple Vitamin Formula Oral Tablet 08/20/2019 03/18/20 24 ORAL DAILY 1 unit(s) 7070408 RxNorm TAKE 1 EACH ORAL DAILY glipiZIDE 10MG Oral Tablet, Extended Release 08/20/2019 Unknown ORAL DAILY 10 MILLIGRAMS 059536 RxNorm TAKE 10 MILLIGRAMS ORAL DAILY metFORMIN HCl 1000MG Oral Tablet 08/20/2019 Unknown ORAL TWICE A DAY WITH FOOD 1000 MILLIGRAMS 299764 RxNorm TAKE 1000 MILLIGRAMS ORAL TWICE A DAY WITH FOOD Cephalexin 500MG Oral Tablet 03/17/2024 03/19/20 24 ORAL TWICE A DAY 1 TABLET 853096 RxNorm TAKE 1 TABLET ORAL TWICE A DAY x 7 days Acetaminophen 500MG Oral Tablet 03/18/2024 03/18/20 24 ORAL NEEDED EVERY 6 HOURS 2 TABLET 722451 RxNorm TAKE 2 TABLET (OR 3 TABLETS regular strength 325mg) ORAL EVERY 6 HOURS FOR 1-2 DAYS THEN NEEDED FOR Fever/Pain (NEXT DOSES 6AM AND 12 NOON) Ibuprofen 200MG Oral Tablet 03/18/2024 03/18/20 24 ORAL EVERY 6 HOURS 2 TABLET 276422 RxNorm TAKE 2 TABLET ORAL EVERY 6 HOURS FOR 24 HOURS THEN NEEDED. (NEXT DOSES at 4AM AND 10AM) Aspirin 81MG Oral Tablet, Enteric Coated 03/19/2024 Unknown ORAL DAILY 81 MILLIGRAMS 236921 RxNorm TAKE 81 MILLIGRAMS ORAL DAILY Carvedilol 6.25MG Oral Tablet 03/19/2024 Unknown ORAL TWICE A DAY 6.25 MILLIGRAMS 19990607 RxNorm TAKE 6.25 MILLIGRAMS ORAL TWICE A DAY Fish Oil [place]-3 1000 MG Oral Capsule, Liquid Filled 03/19/2024 Unknown ORAL DAILY 1000 MG RxNorm TAKE 10 00 MG ORAL DAILY Gabapentin 600MG Oral Tablet 03/19/2024 Unknown ORAL TWICE A DAY 600 MILLIGRAMS 193572 RxNorm TAKE 600 MILLIGRAMS ORAL TWICE A DAY Lisinopril 10MG Oral Tablet 03/19/2024 Unknown ORAL DAILY 10 MILLIGRAMS 656132 RxNorm TAKE 10 MILLIGRAMS ORAL DAILY Multiple Vitamins Oral Tablet 03/19/2024 Unknown ORAL DAILY 1 unit(s) RxNorm TAKE 1 EACH ORAL DAILY Nitroglycerin 0.4MG Sublingual Tablet 03/19/2024 Unknown SUBLIN GUAL NEEDED 0.4 MILLIGRAMS 240543 RxNorm DISSOLVE 0.4 MILLIGRAMS SUBLINGUAL NEEDED Omeprazole 40MG Oral Capsule, Delayed Release 03/19/2024 Unknown ORAL DAILY 40 MILLIGRAMS 20020517 RxNorm TAKE 40 MILLIGRAMS ORAL DAILY Pramipexole Dihydrochlorid e 0.5MG Oral Tablet 03/19/2024 Unknown ORAL BEDTIME 0.5 MILLIGRAMS 215596 RxNorm TAKE 0.5 MILLIGRAMS ORAL BEDTIME Ventolin HFA 0.09MG/1Actuat ion Inhalation Suspension 03/19/2024 Unknown INHALA TION NEEDED EVERY 4 HOURS 2 unit(s) 925266 RxNorm 2 EACH INHALATION NEEDED EVERY 4 HOURS Victoza 6MG/1ML Subcutaneous Solution 03/19/2024 Unknown SUBCUT ANEOUS 1.8 MILLILITERS 650694 RxNorm INJECT 1.8 MILLILITERS SUBCUTANEOU S Cefdinir [...] Code Code System URINARY TRACT INFECTION active 584092 05 SNOMED-CT HYPOTENSION active 31786711 SNOMED-C T HYPOKALEMIA active 65269766 SNOMED-C T SEPSIS active 44661451 SNOMED-CT CIRRHOSIS - NON-ALCOHOLIC 01/02/2022 resolved 266 992819 SNOMED-CT HTN 08/20/2019 resolved 21676027 SNOMED-CT HIGH CHOLESTEROL 10/01/2023 resolved 59084187 SN OMED-CT PERSONAL HISTORY OF BLADDER CA 08/20/2019 resolved 877495180 SNOMED-CT NON-INSULIN DEPENDENT DIABETES MELLITUS 08/20/2019 resolved 14204770 SNOMED-CT 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
--- OUTSIDE RECORDS SUMMARY | 2024-05-18 16:50 | XMS_ITS ---
Author Organization Unknown Address [address] [place] [address] [phone] Phone Care Team Providers Care Cow Tender Name Role Phone DORENE WATTS Registered Nurse Unavailable FRIDA GUNN Attending Unavailable ERAN Viera Primary Unavailable UNLISTED PROVIDER - REQUESTED Xhandoff Un available Results TROPONIN HIGH SENSITIVITY* - Collect Date/Time: 09/30/2023 23:44 [facility] ID: [id number] [address] [place] [address], [address] LOINC: 23916-2 Test Value Unit Reference Range Code Code System Flag TROPONIN HS 7.2 pg/mL L=0.0 H=60.4 Specimen seq. 1 HOUR D-DIMER - Collect Date/Time: 09/30/2023 22:51 [facility] ID: [id number] [address] [place] [address], [address] LOINC: 88022-5 Test Value Unit Reference Range Code Code System Flag D-DIMER 0.57 mg/L L=0.19 H=0.50 27046-5 LOINC H TROPONIN HIGH SENSITIVITY* - Collect Date/Time: 09/30/2023 22:40 [facility] ID: [id number] [address] [place] [address], [address] LOINC: 80390-6 Test Value Unit Reference Range Code Code System Flag TROPONIN HS 7.9 pg/mL L=0.0 H=60.4 Specimen seq. RANDOM COMPREHENSIVE METABOLIC PANE L (CMP) - Collect Date/Time: 09/30/2023 22:40 [facility] ID: [id number] [address] [place], [place], [address] LOINC: 10049-0 Test Value Unit Reference Range Code Code [...] H=34 2028-9 LOINC ANION GAP 7.3 mmol/L 68214-4 LOINC CALCIUM SERUM 9.4 mg/dL L=8.2 H=10.2 50607-0 LOINC BILIRUBIN TOTAL 0.5 mg/dL L=0.0 H=1.3 1975-2 LOINC ALK. PHOS. 118 U/L L=46 H=116 6768-6 LOINC H SGOT (AST) 30 U/L L=15 H=37 1920-8 LOINC SGPT (ALT) 39 U/L L=12 H=78 1742-6 LOINC TOTAL PROTEIN 6.9 gm/dL L=6.0 H=8.0 2885-2 LOINC ALBUMIN 3.6 gm/dL L=3.4 H=5.0 1751-7 LOINC AGE 83 years eGFR (non-Afr.Amer.) 69 mL/min 78947-6 LOINC eGFR (Afr-[place]) 83 mL/min 22482-4 LOINC CBC W/ DIFFERENTIAL* - Colle ct Date/Time: 09/30/2023 22:40 [facility] ID: [id number] [address] [place], [place], [address] LOINC: 72428-6 Test Value Unit Reference Range Code Code System Flag WBC 4.90 th/cmm L=5.00 H=10.00 6690-2 LOINC L NEUT % 52.1 % L=40.0 H=80.0 LYMPH % 34.5 % L=10.0 H=50.0 MONO % 11.2 % L=2.0 H=12.0 05234-3 LOINC EOS % 1.6 % L=0.0 H=8.0 BASO % 0.4 % L=0.0 H=3.0 IG % 0.2 % L=0.0 H=1.1 2514-8 LOINC NRBC % 0.0 % L=0.0 H=0.0 52971-6 LOINC NEUT abs count 2.6 th/cmm L=1.6 H=8.4 751-8 LOINC LYMPH abs count 1.7 th/cmm L=1.5 H=4.0 731-0 LOINC MONO abs count 0.6 th/cmm L=0.2 H=1.0 742-7 LOINC EOS abs count 0.1 th/cmm L=0.0 H=0.5 711-2 LOINC BASO abs count 0.0 th/cmm L=0.0 H=0.2 704-7 LOINC IG abs count 0.0 th/cmm L=0.0 H=0.1 04314-9 LOINC NRBC abs count 0.0 mil/cmm L=0.0 H=0.0 49698-2 LOINC RBC 3.98 mil/cmm L=3.90 H=5.40 789-8 [...] IV CONTRST* - Completed: 10/01/2023 00:04 LOINC: [facility] [place], [place] [address] [employer]FINIT[employer] PACS DIRECTOR POST REPORT Patient Name: NICK MENDIETA MRN: Sex: : Age: [id number] F 1940 83 Account: Accession: Admit: StayType: [id number] 10/01/2023 E Ordered: Order ID: Submitted: Ordering Provider: 09/30/2023 23:30 [id number] LUIS A CAMARGO Completed: Technologist: Resulted: 09/30/2023 [...] (NRDR) Dose Index Registry (DIR) with the [place] [employer] (ACR). RADIATION OPTIMIZATION: All CT scans at this facility use at least one of these dose optimization techniques: automated exposure control; mA and/or kV adjustment per patient size (includes targeted exams where dose is matched to clinical indication); or iterative reconstruction. Electronically signed by: Kris Ferguson Dictated: 10/01/2023 09:22 XR CHEST PORTABLE OR 1V - Co mpleted: 09/30/2023 22:54 LOINC: [facility] [place], [place] [address] [facility] PACS DIRECTOR POST REPORT Patient Name: NICK MENDIETA MRN: Sex: : Age: [id number] F 1940 83 Account: Accession: Admit: StayType: [id number] 10/01/2023 E Ordered: Order ID: Submitted: Ordering Provider: 09/30/2023 22:41 [id number] LUIS A SANCHEZ Completed: Technologist: Resulted: 09/30/2023 [...] em Smoking History Never smoker (Never Smoked) [id number] SNOMED CT Sex Female Vital Signs Vital Sign Value Unit Pyatt Value Pyatt Unit Date/Time Recent/Initial? Code Code System Body Mass Index 25.32 kg/m2 09/30/2023 22:42 Initial 28761 -5 LOINC Systolic Blood Pressure 126 mm[Hg] [...] Saturation 96 % 2023 02:00 Most Recent 39837 -5 LOINC O2 Saturation 99 % 2023 22:40 Initial 89813 -5 LOINC Inhaled Oxygen Flow Rate 2.00 [...] 17 /min 09/30/19 22:40 Initial 9279- 1 [facility] Temperature 36.3 Carolann 97.3 F 09/30/19 22:42 Initial 8310- 5 [facility] Weight 60.78 kg 134.00 lbs 09/30/2023 22:42 Initial 70161 -7 [facility] Medications Medication Start Date End Date Route Frequency Dose Code Code System Medication Instructions Home Meds Atorvastatin Calcium 20MG Oral Tablet 08/20/2019 Unknown ORAL BEDTIME 20 MILLIGRAMS 978019 RxNorm TAKE 20 MILLIGRAMS ORAL BEDTIME Fish Oil 1000MG Oral Capsule, Liquid Filled 08/20/2019 03/18/20 24 ORAL DAILY 3 CAPSULE 111099 RxNorm TAKE 3 CAPSULE ORAL DAILY Gabapentin 800MG Oral Tablet 08/20/2019 03/18/20 24 ORAL TWICE A DAY 1 TABLET 762760 RxNorm TAKE 1 TABLET ORAL TWICE A DAY Lisinopril 20MG Oral Tablet 08/20/2019 03/18/20 24 ORAL DAILY 20 MILLIGRAMS 317167 RxNorm TAKE 20 MILLIGRAMS ORAL DAILY Multiple Vitamin Formula Oral Tablet 08/20/2019 03/18/20 24 ORAL DAILY 1 unit(s) 1002055 RxNorm TAKE 1 EACH ORAL DAILY Pramipexole Dihydrochlorid e 0.125MG Oral Tablet 08/20/2019 09/30/19 24 ORAL BEDTIME 2 TABLET 635127 RxNorm TAKE 2 TABLET ORAL BEDTIME glipiZIDE 10MG Oral Tablet, Extended Release 08/20/2019 Unknown ORAL DAILY 10 MILLIGRAMS 537216 RxNorm TAKE 10 MILLIGRAMS ORAL DAILY metFORMIN HCl 1000MG Oral Tablet 08/20/2019 Unknown ORAL TWICE A DAY WITH FOOD 1000 MILLIGRAMS 308268 RxNorm TAKE 1000 MILLIGRAMS ORAL TWICE A DAY WITH FOOD Keflex 500MG Oral Capsule 01/02/2022 09/30/19 24 ORAL THREE TIMES A DAY 1 CAPSULE 005072 RxNorm TAKE 1 CAPSULE ORAL THREE TIMES A DAY Nystatin 603612E/1ML Oral Suspension 01/02/2022 09/30/19 24 ORAL FOUR TIMES A DAY 5 mL 024915 RxNorm TAKE 5 mL ORAL FOUR TIMES A DAY Cephalexin 500MG Oral Tablet 03/17/2024 03/19/20 24 ORAL TWICE A DAY 1 TABLET 988398 RxNorm TAKE 1 TABLET ORAL TWICE A DAY x 7 days Acetaminophen 500MG Oral Tablet 03/18/2024 03/18/20 24 ORAL NEEDED EVERY 6 HOURS 2 TABLET 117720 RxNorm TAKE 2 TABLET (OR 3 TABLETS regular strength 325mg) ORAL EVERY 6 HOURS FOR 1-2 DAYS THEN NEEDED FOR Fever/Pain (NEXT DOSES 6AM AND 12 NOON) Ibuprofen 200MG Oral Tablet 03/18/2024 03/18/20 24 ORAL EVERY 6 HOURS 2 TABLET 368688 RxNorm TAKE 2 TABLET ORAL EVERY 6 HOURS FOR 24 HOURS THEN NEEDED. (NEXT DOSES at 4AM AND 10AM) Aspirin 81MG Oral Tablet, Enteric Coated 03/19/2024 Unknown ORAL DAILY 81 MILLIGRAMS 632401 RxNorm TAKE 81 MILLIGRAMS ORAL DAILY Carvedilol 6.25MG Oral Tablet 03/19/2024 Unknown ORAL TWICE A DAY 6.25 MILLIGRAMS 19990607 RxNorm TAKE 6.25 MILLIGRAMS ORAL TWICE A DAY Fish Oil [place]-3 1000 MG Oral Capsule, Liquid Filled 03/19/2024 Unknown ORAL DAILY 1000 MG RxNorm TAKE 10 00 MG ORAL DAILY Gabapentin 600MG Oral Tablet 03/19/2024 Unknown ORAL TWICE A DAY 600 MILLIGRAMS 024564 RxNorm TAKE 600 MILLIGRAMS ORAL TWICE A DAY Lisinopril 10MG Oral Tablet 03/19/2024 Unknown ORAL DAILY 10 MILLIGRAMS 944151 RxNorm TAKE 10 MILLIGRAMS ORAL DAILY Multiple Vitamins Oral Tablet 03/19/2024 Unknown ORAL DAILY 1 unit(s) RxNorm TAKE 1 EACH ORAL DAILY Nitroglycerin 0.4MG Sublingual Tablet 03/19/2024 Unknown SUBLIN GUAL NEEDED 0.4 MILLIGRAMS 744501 RxNorm DISSOLVE 0.4 MILLIGRAMS SUBLINGUAL NEEDED Omeprazole 40MG Oral Capsule, Delayed Release 03/19/2024 Unknown ORAL DAILY 40 MILLIGRAMS 20020517 RxNorm TAKE 40 MILLIGRAMS ORAL DAILY Pramipexole Dihydrochlorid e 0.5MG Oral Tablet 03/19/2024 Unknown ORAL BEDTIME 0.5 MILLIGRAMS 563714 RxNorm TAKE 0.5 MILLIGRAMS ORAL BEDTIME Ventolin HFA 0.09MG/1Actuat ion Inhalation Suspension 03/19/2024 Unknown INHALA TION NEEDED EVERY 4 HOURS 2 unit(s) 257118 RxNorm 2 EACH INHALATION NEEDED EVERY 4 HOURS Victoza 6MG/1ML Subcutaneous Solution 03/19/2024 Unknown SUBCUT ANEOUS 1.8 MILLILITERS 441097 RxNorm INJECT 1.8 MILLILITERS SUBCUTANEOU S Cefdinir [...] Code Code System URINARY TRACT INFECTION active 513853 05 SNOMED-CT HYPOTENSION active 46613063 SNOMED-C T HYPOKALEMIA active 81036351 SNOMED-C T SEPSIS active 73253402 SNOMED-CT CIRRHOSIS - NON-ALCOHOLIC 01/02/2022 resolved 266 334514 SNOMED-CT HTN 08/20/2019 resolved 24904445 SNOMED-CT HIGH CHOLESTEROL 10/01/2023 resolved 02383621 SN OMED-CT PERSONAL HISTORY OF BLADDER CA 08/20/2019 resolved 681688405 SNOMED-CT NON-INSULIN DEPENDENT DIABETES MELLITUS 08/20/2019 resolved 26485811 SNOMED-CT 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
--- OUTSIDE RECORDS SUMMARY | 2024-05-18 16:50 | XMS_ITS ---
Author Organization Unknown Address [address] [place] [address] [phone] Phone Care Team Providers Care Staff Command And Control Officer Name Role Phone KSENIA Gallo Attending Unavailable ERAN Viera Primary Unavailable Social History Type Status Start Date End Date Code Code Syst em Smoking History Never smoker (Never Smoked) 704117068 SNOMED CT Sex Female Medications Medication Start Date End Date Route Frequency Dose Code Code System Medication Instructions Home Meds Atorvastatin Calcium 20MG Oral Tablet 08/20/2019 Unknown ORAL BEDTIME 20 MILLIGRAMS 662329 RxNorm TAKE 20 MILLIGRAMS ORAL BEDTIME Fish Oil 1000MG Oral Capsule, Liquid Filled 08/20/2019 03/18/20 24 ORAL DAILY 3 CAPSULE 982642 RxNorm TAKE 3 CAPSULE ORAL DAILY Gabapentin 800MG Oral Tablet 08/20/2019 03/18/20 24 ORAL TWICE A DAY 1 TABLET 961157 RxNorm TAKE 1 TABLET ORAL TWICE A DAY Lisinopril 20MG Oral Tablet 08/20/2019 03/18/20 24 ORAL DAILY 20 MILLIGRAMS 079301 RxNorm TAKE 20 MILLIGRAMS ORAL DAILY Multiple Vitamin Formula Oral Tablet 08/20/2019 03/18/20 24 ORAL DAILY 1 unit(s) 2852608 RxNorm TAKE 1 EACH ORAL DAILY glipiZIDE 10MG Oral Tablet, Extended Release 08/20/2019 Unknown ORAL DAILY 10 MILLIGRAMS 576476 RxNorm TAKE 10 MILLIGRAMS ORAL DAILY metFORMIN HCl 1000MG Oral Tablet 08/20/2019 Unknown ORAL TWICE A DAY WITH FOOD 1000 MILLIGRAMS 109184 RxNorm TAKE 1000 MILLIGRAMS ORAL TWICE A DAY WITH FOOD Cephalexin 500MG Oral Tablet 03/17/2024 03/19/20 24 ORAL TWICE A DAY 1 TABLET 778858 RxNorm TAKE 1 TABLET ORAL TWICE A DAY x 7 days Acetaminophen 500MG Oral Tablet 03/18/2024 03/18/20 24 ORAL NEEDED EVERY 6 HOURS 2 TABLET 990651 RxNorm TAKE 2 TABLET (OR 3 TABLETS regular strength 325mg) ORAL EVERY 6 HOURS FOR 1-2 DAYS THEN NEEDED FOR Fever/Pain (NEXT DOSES 6AM AND 12 NOON) Ibuprofen 200MG Oral Tablet 03/18/2024 03/18/20 24 ORAL EVERY 6 HOURS 2 TABLET 651479 RxNorm TAKE 2 TABLET ORAL EVERY 6 HOURS FOR 24 HOURS THEN NEEDED. (NEXT DOSES at 4AM AND 10AM) Aspirin 81MG Oral Tablet, Enteric Coated 03/19/2024 Unknown ORAL DAILY 81 MILLIGRAMS 953788 RxNorm TAKE 81 MILLIGRAMS ORAL DAILY Carvedilol 6.25MG Oral Tablet 03/19/2024 Unknown ORAL TWICE A DAY 6.25 MILLIGRAMS 19990607 RxNorm TAKE 6.25 MILLIGRAMS ORAL TWICE A DAY Fish Oil [place]-3 1000 MG Oral Capsule, Liquid Filled 03/19/2024 Unknown ORAL DAILY 1000 MG RxNorm TAKE 10 00 MG ORAL DAILY Gabapentin 600MG Oral Tablet 03/19/2024 Unknown ORAL TWICE A DAY 600 MILLIGRAMS 488264 RxNorm TAKE 600 MILLIGRAMS ORAL TWICE A DAY Lisinopril 10MG Oral Tablet 03/19/2024 Unknown ORAL DAILY 10 MILLIGRAMS 860288 RxNorm TAKE 10 MILLIGRAMS ORAL DAILY Multiple Vitamins Oral Tablet 03/19/2024 Unknown ORAL DAILY 1 unit(s) RxNorm TAKE 1 EACH ORAL DAILY Nitroglycerin 0.4MG Sublingual Tablet 03/19/2024 Unknown SUBLIN GUAL NEEDED 0.4 MILLIGRAMS 363539 RxNorm DISSOLVE 0.4 MILLIGRAMS SUBLINGUAL NEEDED Omeprazole 40MG Oral Capsule, Delayed Release 03/19/2024 Unknown ORAL DAILY 40 MILLIGRAMS 20020517 RxNorm TAKE 40 MILLIGRAMS ORAL DAILY Pramipexole Dihydrochlorid e 0.5MG Oral Tablet 03/19/2024 Unknown ORAL BEDTIME 0.5 MILLIGRAMS 572837 RxNorm TAKE 0.5 MILLIGRAMS ORAL BEDTIME Ventolin HFA 0.09MG/1Actuat ion Inhalation Suspension 03/19/2024 Unknown INHALA TION NEEDED EVERY 4 HOURS 2 unit(s) 341288 RxNorm 2 EACH INHALATION NEEDED EVERY 4 HOURS Victoza 6MG/1ML Subcutaneous Solution 03/19/2024 Unknown SUBCUT ANEOUS 1.8 MILLILITERS 799077 RxNorm INJECT 1.8 MILLILITERS SUBCUTANEOU S Cefdinir [...] Code Code System URINARY TRACT INFECTION active 270652 05 SNOMED-CT HYPOTENSION active 16102819 SNOMED-C T HYPOKALEMIA active 02477341 SNOMED-C T SEPSIS active 28013536 SNOMED-CT CIRRHOSIS - NON-ALCOHOLIC 01/02/2022 resolved 266 562053 SNOMED-CT HTN 08/20/2019 resolved 50892275 SNOMED-CT HIGH CHOLESTEROL 10/01/2023 resolved 56327700 SN OMED-CT PERSONAL HISTORY OF BLADDER CA 08/20/2019 resolved 011650195 SNOMED-CT NON-INSULIN DEPENDENT DIABETES MELLITUS 08/20/2019 resolved 51386554 SNOMED-CT 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 715760958 SNOMED-CT Allergies and Adverse Reactions Allergy Substance Reaction Severity Start Date Concern Status Co de Code System CODEINE Active 2670 RxNorm Plan of Treatment PFT COMPLETE W BROCHODILATER 04/23/2024 NM MPI STR/RST 05/15/2023 CT CHEST W/O CONTRAST 05/18/2022 CT CHEST W/O CONTRAST 03/26/2022 MRI BRAIN W/O CONTRAST 01/25/2021 Encounters Encounter Diagnosis Start Date Code Code Sys tem Aortic stenosis, non-rheumatic 11/13/2023 022276403 SNOMED-CT Personal Care Team Section Performer Name Performer Role Active Date Inactive Da te
--- OUTSIDE RECORDS SUMMARY | 2024-05-18 16:51 | XMS_ITS ---
Author Organization Unknown Address [address] [place] [address] [phone] Phone Care Team Providers Care Buffing Machine Operator Semiautomatic Name Role Phone LIA TENA Registered Nurse UnavailGarret ESCALANTE Registered Nurse Unavailab Griffiths Attending Unavailable KEVIN CURIEL Unavailable ERAN Viera Primary Unavailable UNLISTED PROVIDER - REQUESTED Xhandoff Un available Results NOVA GLUCOSE FINGER HEEL CAP ILLARY - Collect Date/Time: 03/19/2024 08:26 [facility] ID: [id number] [address] [place] [address], [phone] LOINC: 93129-7 Test Value Unit Reference Range Code Code System Flag GLUCOSE CAP 87 mg/dL L=70 H=116 84503-6 LOINC MAGNESIUM SERUM* - Collect D ate/Time: 03/19/2024 07:50 [facility] ID: [id number] [address] [place] [address], [address] LOINC: 54443-7 Test Value Unit Reference Range Code Code System Flag MAGNESIUM 1.2 mg/dL L=1.6 H=2.3 11138-6 LOINC L BASIC METABOLIC PANEL (BMP) - Collect Date/Time: 03/19/2024 07:50 [facility] ID: [id number] [address] [place] [address], [address] LOINC: 42393-6 Test Value Unit Reference Range Code Code [...] 2028-9 LOINC L ANION GAP 7.4 mmol/L 29609-6 LOINC CALCIUM SERUM 8.5 mg/dL L=8.4 H=10.2 48312-5 LOINC AGE 83 years eGFR (non-Afr.Amer.) 44 mL/min 93491-7 LOINC eGFR (Afr-German) 53 mL/min 20864-7 LOINC LACTIC ACID - Collect Date/T ellis: 03/19/2024 07:50 [facility] ID: [id number] [address] [place] [address], [address] LOINC: Test Value Unit Reference Range Code Code System Flag LACTIC ACID 1.8 mmol/L L=0.7 H=2.1 95773-3 LOINC CBC W/ DIFFERENTIAL* - Colle ct Date/Time: 03/19/2024 07:50 [facility] ID: [id number] [address] [place] [address], [address] LOINC: 25291-8 Test Value Unit Reference Range Code Code System Flag WBC 12.62 th/cmm L=5.00 H=10.00 6690-2 LOINC H NEUT % 80.0 % L=40.0 H=80.0 LYMPH % 6.3 % L=10.0 H=50.0 L MONO % 12.7 % L=2.0 H=12.0 31956-9 LOINC H EOS % 0.2 % L=0.0 H=8.0 BASO % 0.2 % L=0.0 H=3.0 IG % 0.6 % L=0.0 H=1.1 2514-8 LOINC NRBC % 0.0 % L=0.0 H=0.0 25692-5 LOINC NEUT abs count 10.1 th/cmm L=1.6 H=8.4 751-8 LOINC H LYMPH abs count 0.8 th/cmm L=1.5 H=4.0 731-0 LOINC L MONO abs count 1.6 th/cmm L=0.2 H=1.0 742-7 LOINC H EOS abs count 0.0 th/cmm L=0.0 H=0.5 711-2 LOINC BASO abs count 0.0 th/cmm L=0.0 H=0.2 704-7 LOINC IG abs count 0.1 th/cmm L=0.0 H=0.1 06293-1 LOINC NRBC abs count 0.0 mil/cmm L=0.0 H=0.0 71781-8 LOINC RBC 3.59 mil/cmm L=3.90 H=5.40 789-8 [...] CAP ILLARY - Collect Date/Time: 03/18/2024 21:04 [facility] ID: [id number] - [id number] [address] [place], [place], [id number] LOINC: 51082-6 Test Value Unit Reference Range Code Code System Flag GLUCOSE CAP 135 mg/dL L=70 H=116 44593-7 LOINC H CBC W/ DIFFERENTIAL* - Colle ct Date/Time: 03/18/2024 18:00 [facility] ID: [id number] [address] [place], [place], [id number] LOINC: 50825-8 Test Value Unit Reference Range Code Code System Flag WBC 13.71 th/cmm L=5.00 H=10.00 6690-2 LOINC H NEUT % 82.2 % L=40.0 H=80.0 H LYMPH % 4.0 % L=10.0 H=50.0 L MONO % 13.1 % L=2.0 H=12.0 61368-4 LOINC H EOS % 0.1 % L=0.0 H=8.0 BASO % 0.1 % L=0.0 H=3.0 IG % 0.5 % L=0.0 H=1.1 2514-8 LOINC NRBC % 0.0 % L=0.0 H=0.0 44546-5 LOINC NEUT abs count 11.3 th/cmm L=1.6 H=8.4 751-8 LOINC H LYMPH abs count 0.6 th/cmm L=1.5 H=4.0 731-0 LOINC L MONO abs count 1.8 th/cmm L=0.2 H=1.0 742-7 LOINC H EOS abs count 0.0 th/cmm L=0.0 H=0.5 711-2 LOINC BASO abs count 0.0 th/cmm L=0.0 H=0.2 704-7 LOINC IG abs count 0.1 th/cmm L=0.0 H=0.1 54097-0 LOINC NRBC abs count 0.0 mil/cmm L=0.0 H=0.0 28524-6 LOINC RBC 3.51 mil/cmm L=3.90 H=5.40 789-8 [...] PANEL (BMP) - Collect Date/Time: 03/18/2024 18:00 [facility] ID: [id number] - [id number] [address] [place] [address], [address] LOINC: 72361-0 Test Value Unit Reference Range Code Code [...] 2028-9 LOINC L ANION GAP 7.1 mmol/L 52995-4 LOINC CALCIUM SERUM 8.0 mg/dL L=8.4 H=10.2 79318-2 LOINC L AGE 83 years eGFR (non-Afr.Amer.) 45 mL/min 52967-5 LOINC eGFR (Afr-German) 55 mL/min 61075-6 LOINC LACTIC ACID - Collect Date/T ellis: 03/18/2024 18:00 [facility] ID: [id number] [address] [place] [address], [address] LOINC: Test Value Unit Reference Range Code Code System Flag LACTIC ACID 2.3 mmol/L L=0.7 H=2.1 99799-8 LOINC H NOVA GLUCOSE FINGER HEEL CAP ILLARY - Collect Date/Time: 03/18/2024 17:19 [facility] ID: [id number] [address] [place] [address], [id number] LOINC: 93543-8 Test Value Unit Reference Range Code Code System Flag GLUCOSE CAP 141 mg/dL L=70 H=116 09539-5 LOINC H NOVA GLUCOSE FINGER HEEL CAP ILLARY - Collect Date/Time: 03/18/2024 11:59 [facility] ID: [id number] [address] [place] [address], [id number] LOINC: 87455-8 Test Value Unit Reference Range Code Code System Flag GLUCOSE CAP 211 mg/dL L=70 H=116 10226-8 LOINC H LACTIC ACID - Collect Date/T ellis: 03/18/2024 08:00 [facility] ID: [id number] [address] [place] [address], [address] LOINC: Test Value Unit Reference Range Code Code System Flag LACTIC ACID 2.2 mmol/L L=0.7 H=2.1 95096-1 LOINC H NOVA GLUCOSE FINGER HEEL CAP ILLARY - Collect Date/Time: 03/18/2024 07:55 [facility] ID: [id number] [address] [place] [address], [id number] LOINC: 74401-3 Test Value Unit Reference Range Code Code System Flag GLUCOSE CAP 298 mg/dL L=70 H=116 78745-3 LOINC H NOVA GLUCOSE FINGER HEEL CAP ILLARY - Collect Date/Time: 03/18/2024 02:29 [facility] ID: [id number] [address] [place] [address], [id number] LOINC: 59794-8 Test Value Unit Reference Range Code Code System Flag GLUCOSE CAP 199 mg/dL L=70 H=116 75790-3 LOINC H CBC W/ DIFFERENTIAL* - Colle ct Date/Time: 03/18/2024 02:24 [facility] ID: [id number] [address] [place] [address], 56 LOINC: 10122-1 Test Value Unit Reference Range Code Code System Flag WBC 14.26 th/cmm L=5.00 H=10.00 6690-2 LOINC H NEUT % 83.7 % L=40.0 H=80.0 H LYMPH % 3.7 % L=10.0 H=50.0 L MONO % 11.6 % L=2.0 H=12.0 74143-1 LOINC EOS % 0.1 % L=0.0 H=8.0 BASO % 0.1 % L=0.0 H=3.0 IG % 0.8 % L=0.0 H=1.1 2514-8 LOINC NRBC % 0.0 % L=0.0 H=0.0 83727-0 LOINC NEUT abs count 11.9 th/cmm L=1.6 H=8.4 751-8 LOINC H LYMPH abs count 0.5 th/cmm L=1.5 H=4.0 731-0 LOINC L MONO abs count 1.7 th/cmm L=0.2 H=1.0 742-7 LOINC H EOS abs count 0.0 th/cmm L=0.0 H=0.5 711-2 LOINC BASO abs count 0.0 th/cmm L=0.0 H=0.2 704-7 LOINC IG abs count 0.1 th/cmm L=0.0 H=0.1 15241-6 LOINC NRBC abs count 0.0 mil/cmm L=0.0 H=0.0 64391-1 LOINC RBC 3.60 mil/cmm L=3.90 H=5.40 789-8 [...] ACID - Collect Date/T ellis: 03/18/2024 02:24 [facility] ID: [id number] [address] [place] [address], [address] LOINC: Test Value Unit Reference Range Code Code System Flag LACTIC ACID 2.2 mmol/L L=0.7 H=2.1 29839-4 LOINC H BASIC METABOLIC PANEL (BMP) - Collect Date/Time: 03/18/2024 02:24 [facility] ID: [id number] [address] [place] [address], [address] LOINC: 32740-5 Test Value Unit Reference Range Code Code [...] H=30 2028-9 LOINC ANION GAP 5.6 mmol/L 90260-1 LOINC CALCIUM SERUM 8.8 mg/dL L=8.4 H=10.2 96761-5 LOINC AGE 83 years eGFR (non-Afr.Amer.) 52 mL/min 15524-0 LOINC eGFR (Afr-German) 63 mL/min 23833-3 LOINC Social History Type Status Start Date End Date Code Code Syst em Smoking History Never smoker (Never Smoked) 432070953 SNOMED CT Sex Female Vital Signs Vital Sign Value Unit [place] Value [place] Unit Date/Time Recent/Initial? Code Code System Body Mass Index 25.47 kg/m2 03/17/2024 23:59 Initial 65726 -5 LOINC Systolic Blood Pressure 122 mm[Hg] [...] Saturation 94 % 2023 07:39 Most Recent 93063 -5 LOINC O2 Saturation 93 % 2023 23:59 Initial 09975 -5 LOINC Pulse 108.0 /min 03/19/2024 07:39 [...] kg 141.31 lbs 03/18/2024 11:36 Most Recent 39913 -7 LOINC Weight 62.14 kg 137.00 lbs 03/17/2024 23:59 Initial 27990 -7 LOINC Medications Medication Start Date End Date Route Frequency Dose Code Code System Medication Instructions Home Meds Atorvastatin Calcium 20MG Oral Tablet 08/20/2019 Unknown ORAL BEDTIME 20 MILLIGRAMS 718146 RxNorm TAKE 20 MILLIGRAMS ORAL BEDTIME Gabapentin 800MG Oral Tablet 08/20/2019 03/18/20 24 ORAL TWICE A DAY 1 TABLET 631778 RxNorm TAKE 1 TABLET ORAL TWICE A DAY Lisinopril 20MG Oral Tablet 08/20/2019 03/18/20 24 ORAL DAILY 20 MILLIGRAMS 402721 RxNorm TAKE 20 MILLIGRAMS ORAL DAILY glipiZIDE 10MG Oral Tablet, Extended Release 08/20/2019 Unknown ORAL DAILY 10 MILLIGRAMS 742103 RxNorm TAKE 10 MILLIGRAMS ORAL DAILY metFORMIN HCl 1000MG Oral Tablet 08/20/2019 Unknown ORAL TWICE A DAY WITH FOOD 1000 MILLIGRAMS 101335 RxNorm TAKE 1000 MILLIGRAMS ORAL TWICE A DAY WITH FOOD Cephalexin 500MG Oral Tablet 03/17/2024 03/19/20 24 ORAL TWICE A DAY 1 TABLET 045695 RxNorm TAKE 1 TABLET ORAL TWICE A DAY x 7 days Acetaminophen 500MG Oral Tablet 03/18/2024 03/18/20 24 ORAL NEEDED EVERY 6 HOURS 2 TABLET 240514 RxNorm TAKE 2 TABLET (OR 3 TABLETS regular strength 325mg) ORAL EVERY 6 HOURS FOR 1-2 DAYS THEN NEEDED FOR Fever/Pain (NEXT DOSES 6AM AND 12 NOON) Ibuprofen 200MG Oral Tablet 03/18/2024 03/18/20 24 ORAL EVERY 6 HOURS 2 TABLET 531439 RxNorm TAKE 2 TABLET ORAL EVERY 6 HOURS FOR 24 HOURS THEN NEEDED. (NEXT DOSES at 4AM AND 10AM) Aspirin 81MG Oral Tablet, Enteric Coated 03/19/2024 Unknown ORAL DAILY 81 MILLIGRAMS 862612 RxNorm TAKE 81 MILLIGRAMS ORAL DAILY Carvedilol 6.25MG Oral Tablet 03/19/2024 Unknown ORAL TWICE A DAY 6.25 MILLIGRAMS 726444 RxNorm TAKE 6.25 MILLIGRAMS ORAL TWICE A DAY Fish Oil [place]-3 1000 MG Oral Capsule, Liquid Filled 03/19/2024 Unknown ORAL DAILY 1000 MG RxNorm TAKE 10 00 MG ORAL DAILY Gabapentin 600MG Oral Tablet 03/19/2024 Unknown ORAL TWICE A DAY 600 MILLIGRAMS 552431 RxNorm TAKE 600 MILLIGRAMS ORAL TWICE A DAY Lisinopril 10MG Oral Tablet 03/19/2024 Unknown ORAL DAILY 10 MILLIGRAMS 522213 RxNorm TAKE 10 MILLIGRAMS ORAL DAILY Multiple [...] Tablet 03/19/2024 Unknown ORAL BEDTIME 0.5 MILLIGRAMS 327176 RxNorm TAKE 0.5 MILLIGRAMS ORAL BEDTIME Ventolin HFA 0.09MG/1Actuat ion Inhalation Suspension 03/19/2024 Unknown INHALA TION NEEDED EVERY 4 HOURS 2 unit(s) 051262 RxNorm 2 EACH INHALATION NEEDED EVERY 4 HOURS Victoza 6MG/1ML Subcutaneous Solution 03/19/2024 Unknown SUBCUT ANEOUS 1.8 MILLILITERS 845096 RxNorm INJECT 1.8 MILLILITERS SUBCUTANEOUS Cefdinir 300MG [...] Code Code System URINARY TRACT INFECTION active 482674 05 SNOMED-CT HYPOTENSION active 67219697 SNOMED-C T HYPOKALEMIA active 01326085 SNOMED-C T SEPSIS active 62186328 SNOMED-CT CIRRHOSIS - NON-ALCOHOLIC 01/02/2022 resolved 266 724193 SNOMED-CT HTN 08/20/2019 resolved 44372017 SNOMED-CT HIGH CHOLESTEROL 10/01/2023 resolved 09028036 SN OMED-CT PERSONAL HISTORY OF BLADDER CA 08/20/2019 resolved 866601149 SNOMED-CT NON-INSULIN DEPENDENT DIABETES MELLITUS 08/20/2019 resolved 27100746 SNOMED-CT 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
--- OUTSIDE RECORDS SUMMARY | 2024-05-18 16:51 | XMS_ITS ---
Author Organization Unknown Address [address] [place] [phone] Phone Care Team Providers Care Die Out Worker Name Role Phone ANKIT TYLER Registered Nurse Unavailable LUCY Grimaldo Attending Unavailable KEYANA [facility] Unavailable ERAN Viera Primary Unavailable UNLISTED PROVIDER - REQUESTED Xhandoff Un available Results LACTIC ACID - Collect Date/T ellis: 03/17/2024 16:50 [facility] ID: [id number] [address] [place] [address], [address] LOINC: Test Value Unit Reference Range Code Code System Flag LACTIC ACID 1.5 mmol/L L=0.7 H=2.1 80455-1 LOINC COMPREHENSIVE METABOLIC PANE L (CMP) - Collect Date/Time: 03/17/2024 16:32 [facility] ID: [id number] [address] [place] [address], [address] LOINC: 24957-2 Test Value Unit Reference Range Code Code [...] H=30 2028-9 LOINC ANION GAP 8.5 mmol/L 27731-1 LOINC CALCIUM SERUM 9.1 mg/dL L=8.4 H=10.2 08912-0 LOINC BILIRUBIN TOTAL 1.0 mg/dL L=0.2 H=1.3 1975-2 LOINC ALK. PHOS. 178 U/L L=38 H=126 6768-6 LOINC H SGOT (AST) 33 U/L L=14 H=36 1920-8 LOINC SGPT (ALT) 33 U/L L=4 H=35 1742-6 LOINC TOTAL PROTEIN 6.8 gm/dL L=6.0 H=8.0 2885-2 LOINC ALBUMIN 3.8 gm/dL L=3.4 H=5.0 1751-7 LOINC AGE 83 years eGFR (non-Afr.Amer.) 76 mL/min 04237-4 LOINC eGFR (Afr-Malagasy) 92 mL/min 94141-7 LOINC CBC W/ DIFFERENTIAL* - Colle ct Date/Time: 03/17/2024 16:32 [facility] ID: [id number] [address] [place], [place], [address] LOINC: 19260-6 Test Value Unit Reference Range Code Code System Flag WBC 10.72 th/cmm L=5.00 H=10.00 6690-2 LOINC H NEUT % 79.2 % L=40.0 H=80.0 LYMPH % 5.7 % L=10.0 H=50.0 L MONO % 14.2 % L=2.0 H=12.0 03512-2 LOINC H EOS % 0.1 % L=0.0 H=8.0 BASO % 0.1 % L=0.0 H=3.0 IG % 0.7 % L=0.0 H=1.1 2514-8 LOINC NRBC % 0.0 % L=0.0 H=0.0 57713-7 LOINC NEUT abs count 8.5 th/cmm L=1.6 H=8.4 751-8 LOINC H LYMPH abs count 0.6 th/cmm L=1.5 H=4.0 731-0 LOINC L MONO abs count 1.5 th/cmm L=0.2 H=1.0 742-7 LOINC H EOS abs count 0.0 th/cmm L=0.0 H=0.5 711-2 LOINC BASO abs count 0.0 th/cmm L=0.0 H=0.2 704-7 LOINC IG abs count 0.1 th/cmm L=0.0 H=0.1 05956-9 LOINC NRBC abs count 0.0 mil/cmm L=0.0 H=0.0 20688-9 LOINC RBC 3.86 mil/cmm L=3.90 H=5.40 789-8 [...] Collect Date/Time: 03/17/2024 16:32 [facility] ID: [id number] [address] [place] [address], [address] LOINC: 24145-3 Test Value Unit Reference Range Code Code System Flag NT-proBNP 916.0 pg/mL L=0.0 H=450 63342-8 LOINC H TROPONIN-I* - Collect Date/T ellis: 03/17/2024 16:32 [facility] ID: [id number] [address] [place] [address], [address] LOINC: 02417-4 Test Value Unit Reference Range Code Code System Flag TROPONIN-I < 0.012 ng/mL L=0.000 H=0.034 91292-0 LOINC Specimen seq. RANDOM URINALYSIS WITH MICROSCOPIC* - Collect Date/Time: 03/17/2024 16:10 [facility] ID: [id number] [address] [place], [place], [address] LOINC: 15110-1 Test Value Unit Reference Range Code Code System Flag COLLECTION MODE: CLEAN CATCH 77190-9 LOINC Color YELLOW yellow 5778-6 LOINC Appearance CLOUDY clear 5767-9 LOINC Glucose urine NEGATIVE negative mg/dl 95260-2 LOINC Bilirubin NEGATIVE negative 5770-3 LOINC Ketones NEGATIVE negative mg/dl 2514-8 LOINC Spec gravity 1.020 1.003 - 1.030 5811-5 LOINC pH urine 5.5 5.0 - 7.0 2756-5 LOINC Protein 100 negative mg/dl 11321-3 LOINC A Urobilinogen 0.2 <or= 1 EU/dl 54171-6 LOINC Nitrite POSITIVE negative 5802-4 LOINC A Blood LARGE negative 5794-3 LOINC A Leukocytes MODERATE negative 81339-9 LOINC A WBCs 25-100 0-5 / hpf 67854-9 LOINC RBCs 10-25 0-5 / hpf 07876-1 LOINC Epith cells none 0-5 / hpf Crystals none none Bacteria large none Mucus none none Casts none none /lpf Other [facility] COVID FLU RSV GENEXPE RT - Collect Date/Time: 03/17/2024 16:10 [facility] ID: [id number] [address] [place] [address], [id number] LOINC: 68514-9 Test Value Unit Reference Range Code Code System Flag COVID NEGATIVE Normal: Negative 88000-0 LOINC INFLUENZA A DNA NEGATIVE Normal: Negative 46242-1 LOINC INFLUENZA B DNA NEGATIVE Normal: Negative 81489-0 LOINC RSV DNA NEGATIVE Normal: Negative 17979-2 LOINC XR CHEST 2V PA AND LATERAL - Completed: 03/17/2024 16:20 LOINC: [facility] [place], [place] [address] RADIOLOGY AUDIOMETRIC TECHNICIAN REPORT Patient Name: NICK MENDIETA MRN: Sex: : Age: [id number] F 1940 83 Account: Accession: Admit: StayType: [id number] 03/17/2024 E Ordered: Order ID: Submitted: Ordering Provider: 03/17/2024 16:03 [id number] NGOZI MOSLEY Completed: Technologist: Resulted: 03/17/2024 16:09 [...] who have questions please contact the health transitional care liaison that requested your imaging first. Electronically signed by: Avila Keith MD [facility] ([phone]), at 03/17/2024 4:28 PM Social History Type Status Start Date End Date Code Code Syst em Smoking History Never smoker (Never Smoked) 388343888 SNOMED CT Sex Female Vital Signs Vital Sign Value Unit [place] Value [place] Unit Date/Time Recent/Initial? Code Code System Body Mass Index 25.70 kg/m2 03/17/2024 15:07 Initial 64302 -5 LOINC Systolic Blood Pressure 99 mm[Hg] [...] Saturation 98 % 2023 17:42 Most Recent 76387 -5 INC O2 Saturation 98 % 2023 15:07 Initial 49348 -5 LOINC Pulse 102.0 /min 03/17/2024 17:42 [...] 61.69 kg 136.00 lbs 03/17/2024 15:07 Initial 21938 -7 [facility] Medications Medication Start Date End Date Route Frequency Dose Code Code System Medication Instructions Home Meds Atorvastatin Calcium 20MG Oral Tablet 08/20/2019 Unknown ORAL BEDTIME 20 MILLIGRAMS 129374 RxNorm TAKE 20 MILLIGRAMS ORAL BEDTIME Fish Oil 1000MG Oral Capsule, Liquid Filled 08/20/2019 03/18/20 24 ORAL DAILY 3 CAPSULE 634315 RxNorm TAKE 3 CAPSULE ORAL DAILY Gabapentin 800MG Oral Tablet 08/20/2019 03/18/20 24 ORAL TWICE A DAY 1 TABLET 659318 RxNorm TAKE 1 TABLET ORAL TWICE A DAY Lisinopril 20MG Oral Tablet 08/20/2019 03/18/20 24 ORAL DAILY 20 MILLIGRAMS 231373 RxNorm TAKE 20 MILLIGRAMS ORAL DAILY Multiple Vitamin Formula Oral Tablet 08/20/2019 03/18/20 24 ORAL DAILY 1 unit(s) 9049617 RxNorm TAKE 1 EACH ORAL DAILY glipiZIDE 10MG Oral Tablet, Extended Release 08/20/2019 Unknown ORAL DAILY 10 MILLIGRAMS 537962 RxNorm TAKE 10 MILLIGRAMS ORAL DAILY metFORMIN HCl 1000MG Oral Tablet 08/20/2019 Unknown ORAL TWICE A DAY WITH FOOD 1000 MILLIGRAMS 137051 RxNorm TAKE 1000 MILLIGRAMS ORAL TWICE A DAY WITH FOOD Cephalexin 500MG Oral Tablet 03/17/2024 03/19/20 24 ORAL TWICE A DAY 1 TABLET 702627 RxNorm TAKE 1 TABLET ORAL TWICE A DAY x 7 days Acetaminophen 500MG Oral Tablet 03/18/2024 03/18/20 24 ORAL NEEDED EVERY 6 HOURS 2 TABLET 632906 RxNorm TAKE 2 TABLET (OR 3 TABLETS regular strength 325mg) ORAL EVERY 6 HOURS FOR 1-2 DAYS THEN NEEDED FOR Fever/Pain (NEXT DOSES 6AM AND 12 NOON) Ibuprofen 200MG Oral Tablet 03/18/2024 03/18/20 24 ORAL EVERY 6 HOURS 2 TABLET 347366 RxNorm TAKE 2 TABLET ORAL EVERY 6 HOURS FOR 24 HOURS THEN NEEDED. (NEXT DOSES at 4AM AND 10AM) Aspirin 81MG Oral Tablet, Enteric Coated 03/19/2024 Unknown ORAL DAILY 81 MILLIGRAMS 956511 RxNorm TAKE 81 MILLIGRAMS ORAL DAILY Carvedilol 6.25MG Oral Tablet 03/19/2024 Unknown ORAL TWICE A DAY 6.25 MILLIGRAMS 838879 RxNorm TAKE 6.25 MILLIGRAMS ORAL TWICE A DAY Fish Oil [place]-3 1000 MG Oral Capsule, Liquid Filled 03/19/2024 Unknown ORAL DAILY 1000 MG RxNorm TAKE 10 00 MG ORAL DAILY Gabapentin 600MG Oral Tablet 03/19/2024 Unknown ORAL TWICE A DAY 600 MILLIGRAMS 000325 RxNorm TAKE 600 MILLIGRAMS ORAL TWICE A DAY Lisinopril 10MG Oral Tablet 03/19/2024 Unknown ORAL DAILY 10 MILLIGRAMS 512551 RxNorm TAKE 10 MILLIGRAMS ORAL DAILY Multiple [...] Tablet 03/19/2024 Unknown ORAL BEDTIME 0.5 MILLIGRAMS 828287 RxNorm TAKE 0.5 MILLIGRAMS ORAL BEDTIME Ventolin HFA 0.09MG/1Actuat ion Inhalation Suspension 03/19/2024 Unknown INHALA TION NEEDED EVERY 4 HOURS 2 unit(s) 081477 RxNorm 2 EACH INHALATION NEEDED EVERY 4 HOURS Victoza 6MG/1ML Subcutaneous Solution 03/19/2024 Unknown SUBCUT ANEOUS 1.8 MILLILITERS 315292 RxNorm INJECT 1.8 MILLILITERS SUBCUTANEOU S Cefdinir [...] Code Code System URINARY TRACT INFECTION active 821920 05 SNOMED-CT HYPOTENSION active 24036704 SNOMED-C T HYPOKALEMIA active 23377407 SNOMED-C T SEPSIS active 11796911 SNOMED-CT CIRRHOSIS - NON-ALCOHOLIC 01/02/2022 resolved 266 676586 SNOMED-CT HTN 08/20/2019 resolved 73079920 SNOMED-CT HIGH CHOLESTEROL 10/01/2023 resolved 02000610 SN OMED-CT PERSONAL HISTORY OF BLADDER CA 08/20/2019 resolved 409740925 SNOMED-CT NON-INSULIN DEPENDENT DIABETES MELLITUS 08/20/2019 resolved 15156005 SNOMED-CT 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 350252445 SNOMED-CT Allergies and Adverse Reactions Allergy Substance Reaction Severity Start Date Concern Status Co de Code System CODEINE Active 2670 RxNorm Plan of Treatment PFT COMPLETE W BROCHODILATER 04/23/2024 NM MPI STR/RST 05/15/2023 CT CHEST W/O CONTRAST 05/18/2022 CT CHEST W/O CONTRAST 03/26/2022 MRI BRAIN W/O CONTRAST 01/25/2021 Encounters Encounter Diagnosis Start Date Code Code Sys tem Urinary tract infectious disease 03/17/2024 82781224 [employer]-CT Personal Care Team Section Performer Name Performer Role Active Date Inactive Da te Imaging Narrative Notes [facility] [place], [place] [address] RADIOLOGY AUDIOMETRIC TECHNICIAN REPORT Patient Name: NICK MENDIETA MRN: Sex: : Age: [id number] F [id number] 83 Account: Accession: Admit: StayType: [id number] 03/17/2024 E Ordered: Order ID: Submitted: Ordering Provider: 03/17/2024 16:03 [id number] NGOZI MOSLEY Completed: Technologist: Resulted: 03/17/2024 16:09 [...] who have questions please contact the health transitional care liaison that requested your imaging first. Electronically signed by: Avila Keith MD [facility] ([phone]), at 03/17/2024 4:28 PM
--- OUTSIDE RECORDS SUMMARY | 2024-05-18 16:52 | XMS_ITS ---
Author Organization Unknown Address [address] [place] [address] [phone] Phone Care Team Providers Care Marketing Communications Coordinator Name Role Phone ADDI Guaman Attending Unavailable Social History Type Status Start Date End Date Code Code Syst em Smoking History Never smoker (Never Smoked) [id number] SNOMED CT Sex Female Medications Medication Start Date End Date Route Frequency Dose Code Code System Medication Instructions Home Meds Atorvastatin Calcium 20MG Oral Tablet 08/20/2019 Unknown ORAL BEDTIME 20 MILLIGRAMS 424308 RxNorm TAKE 20 MILLIGRAMS ORAL BEDTIME glipiZIDE 10MG Oral Tablet, Extended Release 08/20/2019 Unknown ORAL DAILY 10 MILLIGRAMS 472613 RxNorm TAKE 10 MILLIGRAMS ORAL DAILY metFORMIN HCl 1000MG Oral Tablet 08/20/2019 Unknown ORAL TWICE A DAY WITH FOOD 1000 MILLIGRAMS 950297 RxNorm TAKE 1000 MILLIGRAMS ORAL TWICE A DAY WITH FOOD Cephalexin 500MG Oral Tablet 03/17/2024 03/19/20 24 ORAL TWICE A DAY 1 TABLET [id number] RxNorm TAKE 1 TABLET ORAL TWICE A DAY x 7 days Aspirin 81MG Oral Tablet, Enteric Coated 03/19/2024 Unknown ORAL DAILY 81 MILLIGRAMS 284812 RxNorm TAKE 81 MILLIGRAMS ORAL DAILY Carvedilol 6.25MG Oral Tablet 03/19/2024 Unknown ORAL TWICE A DAY 6.25 MILLIGRAMS 070577 RxNorm TAKE 6.25 MILLIGRAMS ORAL TWICE A DAY Fish Oil [place]-3 1000 MG Oral Capsule, Liquid Filled 03/19/2024 Unknown ORAL DAILY 1000 MG RxNorm TAKE 10 00 MG ORAL DAILY Gabapentin 600MG Oral Tablet 03/19/2024 Unknown ORAL TWICE A DAY 600 MILLIGRAMS 922191 RxNorm TAKE 600 MILLIGRAMS ORAL TWICE A DAY Lisinopril 10MG Oral Tablet 03/19/2024 Unknown ORAL DAILY 10 MILLIGRAMS 466695 RxNorm TAKE 10 MILLIGRAMS ORAL DAILY Multiple [...] Tablet 03/19/2024 Unknown ORAL BEDTIME 0.5 MILLIGRAMS 541460 RxNorm TAKE 0.5 MILLIGRAMS ORAL BEDTIME Ventolin HFA 0.09MG/1Actuat ion Inhalation Suspension 03/19/2024 Unknown INHALA TION NEEDED EVERY 4 HOURS 2 unit(s) 976049 RxNorm 2 EACH INHALATION NEEDED EVERY 4 HOURS Victoza 6MG/1ML Subcutaneous Solution 03/19/2024 Unknown SUBCUT ANEOUS 1.8 MILLILITERS 595731 RxNorm INJECT 1.8 MILLILITERS SUBCUTANEOUS Cefdinir 300MG [...] Code Code System URINARY TRACT INFECTION active 403173 05 SNOMED-CT HYPOTENSION active 45507393 SNOMED-C T HYPOKALEMIA active 09025477 SNOMED-C T SEPSIS active 62592163 SNOMED-CT CIRRHOSIS - NON-ALCOHOLIC 01/02/2022 resolved 266 091646 SNOMED-CT HTN 08/20/2019 resolved 05462106 SNOMED-CT HIGH CHOLESTEROL 10/01/2023 resolved 12562969 SN OMED-CT PERSONAL HISTORY OF BLADDER CA 08/20/2019 resolved 962513001 SNOMED-CT NON-INSULIN DEPENDENT DIABETES MELLITUS 08/20/2019 resolved 34997533 SNOMED-CT 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 303730298 SNOMED-CT Allergies and Adverse Reactions Allergy Substance Reaction Severity Start Date Concern Status Co de Code System CODEINE Active 4624 RxNorm Plan of Treatment PFT COMPLETE W [...]
--- OUTSIDE RECORDS SUMMARY | 2024-05-18 16:52 | XMS_ITS ---
Author Organization Unknown Address [address] [place] [address] [phone] Phone Care Team Providers Care Die Engraver Name Role Phone ERAN Viera Attending Unavailable Social History Type Status Start Date End Date Code Code Syst em Smoking History Never smoker (Never Smoked) [id number] SNOMED CT Sex Female Medications Medication Start Date End Date Route Frequency Dose Code Code System Medication Instructions Home Meds Atorvastatin Calcium 20MG Oral Tablet 08/20/2019 Unknown ORAL BEDTIME 20 MILLIGRAMS 809775 RxNorm TAKE 20 MILLIGRAMS ORAL BEDTIME glipiZIDE 10MG Oral Tablet, Extended Release 08/20/2019 Unknown ORAL DAILY 10 MILLIGRAMS 801121 RxNorm TAKE 10 MILLIGRAMS ORAL DAILY metFORMIN HCl 1000MG Oral Tablet 08/20/2019 Unknown ORAL TWICE A DAY WITH FOOD 1000 MILLIGRAMS 732313 RxNorm TAKE 1000 MILLIGRAMS ORAL TWICE A DAY WITH FOOD Aspirin 81MG Oral Tablet, Enteric Coated 03/19/2024 Unknown ORAL DAILY 81 MILLIGRAMS 801950 RxNorm TAKE 81 MILLIGRAMS ORAL DAILY Carvedilol 6.25MG Oral Tablet 03/19/2024 Unknown ORAL TWICE A DAY 6.25 MILLIGRAMS 539543 RxNorm TAKE 6.25 MILLIGRAMS ORAL TWICE A DAY Fish Oil [place]-3 1000 MG Oral Capsule, Liquid Filled 03/19/2024 Unknown ORAL DAILY 1000 MG RxNorm TAKE 10 00 MG ORAL DAILY Gabapentin 600MG Oral Tablet 03/19/2024 Unknown ORAL TWICE A DAY 600 MILLIGRAMS 359977 RxNorm TAKE 600 MILLIGRAMS ORAL TWICE A DAY Lisinopril 10MG Oral Tablet 03/19/2024 Unknown ORAL DAILY 10 MILLIGRAMS 253552 RxNorm TAKE 10 MILLIGRAMS ORAL DAILY Multiple [...] Tablet 03/19/2024 Unknown ORAL BEDTIME 0.5 MILLIGRAMS 014546 RxNorm TAKE 0.5 MILLIGRAMS ORAL BEDTIME Ventolin HFA 0.09MG/1Actuat ion Inhalation Suspension 03/19/2024 Unknown INHALA TION NEEDED EVERY 4 HOURS 2 unit(s) 063875 RxNorm 2 EACH INHALATION NEEDED EVERY 4 HOURS Victoza 6MG/1ML Subcutaneous Solution 03/19/2024 Unknown SUBCUT ANEOUS 1.8 MILLILITERS 647393 RxNorm INJECT 1.8 MILLILITERS SUBCUTANEOUS Cefdinir 300MG [...] Code Code System URINARY TRACT INFECTION active 562606 05 SNOMED-CT HYPOTENSION active 79698900 SNOMED-C T HYPOKALEMIA active 45867497 SNOMED-C T SEPSIS active 83273592 SNOMED-CT CIRRHOSIS - NON-ALCOHOLIC 01/02/2022 resolved 266 889085 SNOMED-CT HTN 08/20/2019 resolved 37696778 SNOMED-CT HIGH CHOLESTEROL 10/01/2023 resolved 24424958 SN OMED-CT PERSONAL HISTORY OF BLADDER [place] 08/20/2019 resolved 458510611 SNOMED-CT NON-INSULIN DEPENDENT DIABETES MELLITUS 08/20/2019 resolved 32515727 SNOMED-CT 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 830812158 SNOMED-CT Allergies and Adverse Reactions Allergy Substance Reaction Severity Start Date Concern Status Co de Code System CODEINE Active 2670 RxNorm Plan of Treatment PFT COMPLETE W BROCHODILATER 04/23/2024 NM MPI STR/RST 05/15/2023 CT CHEST W/O CONTRAST 05/18/2022 CT CHEST W/O CONTRAST 03/26/2022 MRI BRAIN W/O CONTRAST 01/25/2021 Encounters Encounter Diagnosis Start Date Code Code Sys tem Chronic cough 04/23/2024 SNOMED-CT Personal Care Team Section Performer Name Performer Role Active Date Inactive Da te
--- OUTSIDE RECORDS SUMMARY | 2024-05-18 16:53 | XMS_ITS | Data Portability ---
Author Organization [place] - [facility], [facility] Address [address] [place] [address] Care Team Providers Care Material Preparation Worker Name Role Phone CRYSTAL ORTEGA Tipple Tender LANI WALLIS Face And Fill Packer Assessment Encounter Date Assessment Date Assessment LastModified [...] down notes before visits to aid recall. Not available 03/27/2024 14:29:14 04/16/2024 04/16/2024 Chronic [...] Plan: a. Schedule pulmonary function test at [facility] to differentiate between asthma and COPD. [...] devoted to today's encounter, including both the srkq-og-[id number] time with the patient and/or family/caregiver and eip-kgja-fz-face time I personally spent is 50 minutes. [email or web address] Not available 04/16/2024 16:34:58 05/04/2024 05/04/2024 This appointment was conducted via telephone. A total of 20 minutes was spent today in patient care. Consent was given to conduct this encounter using appropriate technology. Clostridium Difficile Infection Assessment: Patient is undergoing treatment for C. difficile infection with a 10-day course of oral vancomycin. Reports improvement in stool consistency, now soft but formed, resembling cornmeal. However, experiences frequent bowel movements every 10-15 minutes. Currently taking Imodium (loperamide) for symptom relief, which is not recommended. Plan: a. Continue oral vancomycin for the remaining 3 days. b. Discontinue Imodium (loperamide). c. Administer vancomycin 4 times daily, every 4 hours. d. Monitor for worsening diarrhea or inability to form solid stools post-antibiotic course. e. Follow up if symptoms worsen after completing the antibiotic course. Possible Drug-Induced Rash Assessment: Patient reports a light red rash following the initiation of vancomycin treatment. Rash is not currently visible, but swelling on the neck is reported. Unclear if symptoms are a drug reaction or related to the C. difficile infection. Plan: a. Discontinue Benadryl (diphenhydramine) due to potential side effects. b. Switch to loratadine (Claritin) for itching if rash reappears. c. Monitor for rash progression or new symptoms. Dizziness Assessment: Patient experiencing dizziness, potentially due to medication side effects (vancomycin, allergy medication) or dehydration from diarrhea. Patient also on Pepcid (famotidine), unlikely cause of dizziness. Plan: a. Monitor dizziness symptoms. b. Ensure adequate hydration. c. Consider temporary discontinuation of allergy medication if symptoms persist. Pulmonary Function Assessment: Recent breathing tests show healthy lung function, with no evidence of asthma or emphysema. Plan: a. Discontinue inhaler use. b. No further pulmonary interventions required at this time. [email or web address] Not available 05/04/2024 13:24:32 Plan of Treatment Reminders Order Date Submit Date Provider Last Modified By Organization Details Last Modified Time Details Appointments Acute 2024 04:00P M RICARDO MARQUISGLIA Not available Not available Not available Follow Up 2024 11:00A M AYSHA BARILLAS Not available Not available Not available Lab urinalys is, dipstick 2024 025 [email or web address] [facility], [address] [facility], [place], [address], 04/16/2024 16:35:11 culture + sensitiv ity, urine - clean catch, collecte d at [facility] [address] [facility] (Registration ), [address] [place] [address] [place], [address], 04/23/2024 06:55:49 C diff screen, stool, reflex PCR [address] [facility] (Registration ), [address] [place] [address] [place], [address], 04/27/2024 06:41:15 gastroin testinal pathogen s panel, PCR, stool [address] [facility] (Registration ), [address] [place] [address] [place], [address], 04/27/2024 06:41:49 Referral None recorded . Procedures bronchod ilation responsi veness, pre- and post-bro nchodila tor administ ration (PROC) - pre and post spiromet ry, eval for COPD vs asthma vs overlap syndrome . 2024 025 [facility], [address] [place] [address], [place], [address], 04/17/2024 11:25:19 Surgeries None recorded . Imaging None recorded . Medication Orders carvedil ol 6.25 mg tablet 2023 024 [facility], [address] [place] [address], [address], [place], [place], [id number], 03/27/2024 15:31:06 metformi n 1,000 mg tablet 2023 024 [facility], [address] [place] [address], [address], [place], [place], [id number], 03/27/2024 15:31:06 albutero l sulfate HFA 90 mcg/actu ation aerosol inhaler 2023 024 [place] [place], [address], [place], [address], 03/27/2024 15:31:08 Victoza 3-Jl 0.6 mg/0.1 mL (18 mg/3 mL) subcutan eous pen injector [id number], [address] [place] [address], [facility], [place], [address], 05/18/2024 15:59:49 Patient TargetsNo targets recorded. Patient Instructions Encounter Date Encounter Id Patient Instructions Last Modified By Organization Details Last Modified Time 03/27/2024 [id number] Dear Milka, Thank you for visiting us [...] - I may refer you to a subassembly assembler if we can't figure out the cause [...] two weeks to assess your progress. Warm Aysha pemberton MD Family Medicine [email or web address] Not available 03/27/2024 14:31:20 04/16/2024 [id number] Date: April 16, 2024 Dear Milka, Thank [...] Consider undergoing a pulmonary function test at [facility] to further evaluate your asthma. - General [...] and keep us updated on your progress. Warm nilayDr. Aysha MD Family Medicine [email or web address] Not available 04/16/2024 14:33:41 05/04/2024 [id number] Dear Milka, Thank you for your visit today. I appreciate your commitment to improving your health and managing your current condition effectively. Here are the palomo instructions from our discussion: - Medications: - Continue taking Vancomycin as prescribed, without missing doses. You have three days left on your 10-day course. - Hold off on taking Imodium to allow your body to clear the C. diff infection effectively. - Discontinue Benadryl and switch to Loratadine (Claritin) if you experience any allergic reactions or rashes. - Follow-Up Care: - Keep your follow-up appointment in about a month or contact us sooner if your condition changes. - Monitor for any worsening of diarrhea after completing Vancomycin and inform us if issues persist. - Lifestyle and Behavioral Advice: - Stay hydrated, especially if diarrhea persists, to avoid dizziness. - Additional Recommendations: - It's great to hear your breathing test results were healthy, confirming no asthma or emphysema. Please continue to monitor your health. Please continue to monitor your health and do not hesitate to reach out if you have any concerns before your next appointment. Take care, Aysha Barillas MD Family Medicine [email or web address] Not available 05/04/2024 13:23:20 Reason for Referral None Reported. Results Created Date Observation Date Name Description Value Unit Range Abnormal Flag Note LastModifiedBy Organization Detail LastModifiedTime 03/04/20 24 03/04/2024 hemog lobin A1C, finge rstic k hemoglobin A1C 7.3 % <5.7 Not Available [address], [place], [address], 03/04/2024 14:21:18 03/17/20 24 03/17/2024 LACTI C ACID lactic acid 1.5 mmol/ L 0.7 - 2.[address] [facility] (Lab) [address] [place] [address], [address], 03/17/2024 17:27:33 03/17/20 24 03/17/2024 CBC W/ DIFFE DELLATI AL* WBC 10.72 TH/cm m 5.00 - 10.[address] [facility] (Lab) [address] [place] [address], [id number], 03/17/2024 21:12:49 03/17/20 24 03/17/2024 CBC W/ DIFFE RENTI AL* neut % 79.2 % 40.0 - 80.[address] [facility] (Lab) [address] [place] [address], 78480, 03/17/2024 21:12:49 03/17/20 24 03/17/2024 CBC W/ DIFFE RENTI AL* lymph % 5.7 % 10.0 - 50.[address] [facility] (Lab) [address] [place] [address], [id number], 03/17/2024 21:12:49 03/17/20 24 03/17/2024 CBC W/ DIFFE RENTI AL* mono % 14.2 % 2.0 - 12.[address] [facility] (Lab) [address] [place] [address], [id number], 03/17/2024 21:12:49 03/17/20 24 03/17/2024 CBC W/ DIFFE RENTI AL* eos % 0.1 % 0.0 - 8.[address] [facility] (Lab) [address] [place] [address], [id number], 03/17/2024 21:12:49 03/17/20 24 03/17/2024 CBC W/ DIFFE RENTI AL* baso % 0.1 % 0.0 - 3.[address] [facility] (Lab) [address] [place] [address], [id number], 03/17/2024 21:12:49 03/17/20 24 03/17/2024 CBC W/ DIFFE RENTI AL* Ig % 0.7 % 0.0 - 1.[address] [facility] (Lab) [address] [place] [address], 615[address], 03/17/2024 21:12:49 03/17/20 24 03/17/2024 CBC W/ DIFFE RENTI AL* NRBC % 0.0 % 0.0 - 0.[address] [facility] (Lab) [address] [place] [address], 046[address], 03/17/2024 21:12:49 03/17/20 24 03/17/2024 CBC W/ DIFFE RENTI AL* neut abs count 8.5 TH/cm m 1.6 - 8.[address] [facility] (Lab) [address] [place] [address], [id number], 03/17/2024 21:12:49 03/17/20 24 03/17/2024 CBC W/ DIFFE RENTI AL* lymph abs count 0.6 TH/cm m 1.5 - 4.[address] [facility] (Lab) [address] [place] [address], [id number], 03/17/2024 21:12:49 03/17/20 24 03/17/2024 CBC W/ DIFFE RENTI AL* mono abs count 1.5 TH/cm m 0.2 - 1.[address] [facility] (Lab) [address] [place] [address], 41713, 03/17/2024 21:12:49 03/17/20 24 03/17/2024 CBC W/ DIFFE RENTI AL* eos abs count 0.0 TH/cm m 0.0 - 0.[address] [facility] (Lab) [address] [place] [address], 83384, 03/17/2024 21:12:49 03/17/20 24 03/17/2024 CBC W/ DIFFE RENTI AL* baso abs count 0.0 TH/cm m 0.0 - 0.[address] [facility] (Lab) [address] [place] [address], [id number], 03/17/2024 21:12:49 03/17/20 24 03/17/2024 CBC W/ DIFFE RENTI AL* Ig abs count 0.1 TH/cm m 0.0 - 0.[address] [facility] (Lab) [address] [place] [address], [id number], 03/17/2024 21:12:49 03/17/20 24 03/17/2024 CBC W/ DIFFE RENTI AL* NRBC abs count 0.0 mil/c mm 0.0 - 0.[address] [facility] (Lab) [address] [place] [address], 77610, 03/17/2024 21:12:49 03/17/20 24 03/17/2024 CBC W/ DIFFE RENTI AL* RBC 3.86 mil/c mm 3.90 - 5.[address] [facility] (Lab) [address] [place] [address], [id number], 03/17/2024 21:12:49 03/17/20 24 03/17/2024 CBC W/ DIFFE RENTI AL* hemoglobin 11.3 gm/dL 12.0 - 16.[address] [facility] (Lab) [address] [place] [address], 80113, 03/17/2024 21:12:49 03/17/20 24 03/17/2024 CBC W/ DIFFE RENTI AL* hematocrit 35 % 37 - [address] [facility] (Lab) [address] [place] [address], 34301, 03/17/2024 21:12:49 03/17/20 24 03/17/2024 CBC W/ DIFFE RENTI AL* MCV 92 fL 82 - [address] [facility] (Lab) [address] [place] [address], 45890, 03/17/2024 21:12:49 03/17/20 24 03/17/2024 CBC W/ DIFFE RENTI AL* MCH 29.3 pg 27.0 - 31.[address] [facility] (Lab) [address] [place] [address], 58389, 03/17/2024 21:12:49 03/17/20 24 03/17/2024 CBC W/ DIFFE RENTI AL* MCHC 31.9 % 32.0 - 36.[address] [facility] (Lab) [address] [place] [address], 21678, 03/17/2024 21:12:49 03/17/20 24 03/17/2024 CBC W/ DIFFE RENTI AL* RDW-SD 47.0 fL 39.0 - 49.[address] [facility] (Lab) [address] [place] [address], 11196, 03/17/2024 21:12:49 03/17/20 24 03/17/2024 CBC W/ DIFFE RENTI AL* platelet count 86 TH/cm m 150 - [address] [facility] (Lab) [address] [place] [address], 12882, 03/17/2024 21:12:49 03/17/20 24 03/17/2024 CBC W/ DIFFE RENTI AL* bands % 18 ____ -DARYL L -PREL IMINA RY-RE PORT: 03/[address] [facility] (Lab) [address] [place] [address], 83670, 03/17/2024 21:12:49 03/17/20 24 03/17/2024 BNP (PRO- [...] mptio n of Bioti n. Not Available [facility] (Lab) [address] [place] [address], 10867, 03/17/2024 17:34:35 03/17/20 24 03/17/2024 TROPO LORENA-I * troponin-I <0.012 NG/mL 0.000 - 0.[address] [facility] (Lab) [address] [place] [address], [id number], 03/17/2024 17:34:33 03/17/20 24 03/17/2024 TROPO LORENA-I * specimen seq. RANDOM Not Available [facility] (Lab) [address] [place] [address], 44545, 03/17/2024 17:34:33 03/17/20 24 03/17/2024 COMPR EHENS TYLER METAB OLIC PANEL (CMP) glucose 195 mg/dL 70 - [address] [facility] (Lab) [address] [place] [address], 58495, 03/17/2024 17:33:33 03/17/20 24 03/17/2024 COMPR EHENS TYLER METAB OLIC PANEL (CMP) BUN 23 mg/dL 7 - [address] [facility] (Lab) [address] [place] [address], 23286, 03/17/2024 17:33:33 03/17/20 24 03/17/2024 COMPR EHENS TYLER METAB OLIC PANEL (CMP) creatinine 0.73 mg/dL 0.52 - 1.[address] [facility] (Lab) [address] [place] [address], 14617, 03/17/2024 17:33:33 03/17/20 24 03/17/2024 COMPR EHENS TYLER METAB OLIC PANEL (CMP) sodium serum 136 mmol/ L 136 - [address] [facility] (Lab) [address] [place] [address], 34142, 03/17/2024 17:33:33 03/17/20 24 03/17/2024 COMPR EHENS TYLER METAB OLIC PANEL (CMP) potassium serum 3.4 mmol/ L 3.4 - 5.[address] [facility] (Lab) [address] [place] [address], 50185, 03/17/2024 17:33:33 03/17/20 24 03/17/2024 COMPR EHENS TYLER METAB OLIC PANEL (CMP) chloride serum 104 mmol/ L 98 - [address] [facility] (Lab) [address] [place] [address], 12263, 03/17/2024 17:33:33 03/17/20 24 03/17/2024 COMPR EHENS TYLER METAB OLIC PANEL (CMP) carbon dioxide (co2) 24 mmol/ L 22 - [address] [facility] (Lab) [address] [place] [address], 97615, 03/17/2024 17:33:33 03/17/20 24 03/17/2024 COMPR EHENS TYLER METAB OLIC PANEL (CMP) anion gap 8.5 mmol/ L Not Available [facility] (Lab) [address] [place] [address], 42876, 03/17/2024 17:33:33 03/17/20 24 03/17/2024 COMPR EHENS TYLER METAB OLIC PANEL (CMP) calcium serum 9.1 mg/dL 8.4 - 10.[address] [facility] (Lab) [address] [place] [address], 85402, 03/17/2024 17:33:33 03/17/20 24 03/17/2024 COMPR EHENS TYLER METAB OLIC PANEL (CMP) bilirubin total 1.0 mg/dL 0.2 - 1.[address] [facility] (Lab) [address] [place] [address], 17470, 03/17/2024 17:33:33 03/17/20 24 03/17/2024 COMPR EHENS TYLER METAB OLIC PANEL (CMP) alk. phos. 178 U/L 38 - [address] [facility] (Lab) [address] [place] [address], 33581, 03/17/2024 17:33:33 03/17/20 24 03/17/2024 COMPR EHENS TYLER METAB OLIC PANEL (CMP) SGOT (AST) 33 U/L 14 - [address] [facility] (Lab) [address] [place] [address], 59464, 03/17/2024 17:33:33 03/17/20 24 03/17/2024 COMPR EHENS TYLER METAB OLIC PANEL (CMP) SGPT (ALT) 33 U/L 4 - [address] [facility] (Lab) [address] [place] [address], 63491, 03/17/2024 17:33:33 03/17/20 24 03/17/2024 COMPR EHENS TYLER METAB OLIC PANEL (CMP) total protein 6.8 gm/dL 6.0 - 8.[address] [facility] (Lab) [address] [place] [address], 19345, 03/17/2024 17:33:33 03/17/20 24 03/17/2024 COMPR EHENS TYLER METAB OLIC PANEL (CMP) albumin 3.8 gm/dL 3.4 - 5.[address] [facility] (Lab) [address] [place] [address], 44360, 03/17/2024 17:33:33 03/17/20 24 03/17/2024 COMPR EHENS TYLER METAB OLIC PANEL (CMP) age 83 [address] [facility] (Lab) [address] [place] [address], 34722, 03/17/2024 17:33:33 03/17/20 24 03/17/2024 COMPR EHENS TYLER METAB OLIC PANEL (CMP) eGFR (non-afr.hayde r.) 76 mL/mi n Not Available [facility] (Lab) [address] [place] [address], 44237, 03/17/2024 17:33:33 03/17/20 24 03/17/2024 COMPR EHENS [...] than 18 years of age. Not Available [facility] (Lab) [address] [place] [address], 56243, 03/17/2024 17:33:33 03/17/20 24 03/17/2024 CBC W/ DIFFE RENTI AL* WBC 10.72 TH/cm m 5.00 - 10.[address] [facility] (Lab) [address] [place] [address], 25143, 03/17/2024 17:05:32 03/17/20 24 03/17/2024 CBC W/ DIFFE RENTI AL* neut % 79.2 % 40.0 - 80.[address] [facility] (Lab) [address] [place] [address], 50519, 03/17/2024 17:05:32 03/17/20 24 03/17/2024 CBC W/ DIFFE RENTI AL* lymph % 5.7 % 10.0 - 50.[address] [facility] (Lab) [address] [place] [address], 66719, 03/17/2024 17:05:32 03/17/20 24 03/17/2024 CBC W/ DIFFE RENTI AL* mono % 14.2 % 2.0 - 12.[address] [facility] (Lab) [address] [place] [address], 57227, 03/17/2024 17:05:32 03/17/20 24 03/17/2024 CBC W/ DIFFE RENTI AL* eos % 0.1 % 0.0 - 8.[address] [facility] (Lab) [address] [place], [address], 03/17/2024 17:05:32 03/17/20 24 03/17/2024 CBC W/ DIFFE RENTI AL* baso % 0.1 % 0.0 - 3.[address] [facility] (Lab) [address] [place], [address], 03/17/2024 17:05:32 03/17/20 24 03/17/2024 CBC W/ DIFFE RENTI AL* Ig % 0.7 % 0.0 - 1.[address] [facility] (Lab) [address] [place], [address], 03/17/2024 17:05:32 03/17/20 24 03/17/2024 CBC W/ DIFFE RENTI AL* NRBC % 0.0 % 0.0 - 0.[address] [facility] (Lab) [address] [place] [address], 39569, 03/17/2024 17:05:32 03/17/20 24 03/17/2024 CBC W/ DIFFE RENTI AL* neut abs count 8.5 TH/cm m 1.6 - 8.[address] [facility] (Lab) [address] [place], [address], 03/17/2024 17:05:32 03/17/20 24 03/17/2024 CBC W/ DIFFE RENTI AL* lymph abs count 0.6 TH/cm m 1.5 - 4.[address] [facility] ([facility]) [address] [place] [address], 20353, 03/17/2024 17:05:32 03/17/20 24 03/17/2024 CBC W/ DIFFE RENTI AL* mono abs count 1.5 TH/cm m 0.2 - 1.[address] [facility] (Lab) [address] [place] [address], 92964, 03/17/2024 17:05:32 03/17/20 24 03/17/2024 CBC W/ DIFFE RENTI AL* eos abs count 0.0 TH/cm m 0.0 - 0.[address] [facility] (Lab) [address] [place] [address], 56604, 03/17/2024 17:05:32 03/17/20 24 03/17/2024 CBC W/ DIFFE RENTI AL* baso abs count 0.0 TH/cm m 0.0 - 0.[address] [facility] (Lab) [address] [place] [address], 04829, 03/17/2024 17:05:32 03/17/20 24 03/17/2024 CBC W/ DIFFE RENTI AL* Ig abs count 0.1 TH/cm m 0.0 - 0.[address] [facility] (Lab) [address] [place] [address], 51001, 03/17/2024 17:05:32 03/17/20 24 03/17/2024 CBC W/ DIFFE RENTI AL* NRBC abs count 0.0 mil/c mm 0.0 - 0.[address] [facility] (Lab) [address] [place] [address], 60245, 03/17/2024 17:05:32 03/17/20 24 03/17/2024 CBC W/ DIFFE RENTI AL* RBC 3.86 mil/c mm 3.90 - 5.[address] [facility] ([facility]) [address] [place] [address], 76483, 03/17/2024 17:05:32 03/17/20 24 03/17/2024 CBC W/ DIFFE RENTI AL* hemoglobin 11.3 gm/dL 12.0 - 16.[address] [facility] ([facility]) [address] [place] [address], 88825, 03/17/2024 17:05:32 03/17/20 24 03/17/2024 CBC W/ DIFFE RENTI AL* hematocrit 35 % 37 - [address] [facility] ([facility]) [address] [place] [address], 96204, 03/17/2024 17:05:32 03/17/20 24 03/17/2024 CBC W/ DIFFE RENTI AL* MCV 92 fL 82 - [address] [facility] (Lab) [address] [place] [address], 86516, 03/17/2024 17:05:32 03/17/20 24 03/17/2024 CBC W/ DIFFE RENTI AL* MCH 29.3 pg 27.0 - 31.[address] [facility] ([facility]) [address] [place] [address], 25540, 03/17/2024 17:05:32 03/17/20 24 03/17/2024 CBC W/ DIFFE RENTI AL* MCHC 31.9 % 32.0 - 36.[address] [facility] (Lab) [address] [place] [address], 29670, 03/17/2024 17:05:32 03/17/20 24 03/17/2024 CBC W/ DIFFE RENTI AL* RDW-SD 47.0 fL 39.0 - 49.[address] [facility] (Lab) [address] [place] [address], 35082, 03/17/2024 17:05:32 03/17/20 24 03/17/2024 CBC W/ DIFFE RENTI AL* platelet count 86 TH/cm m 150 - 450 low -PREL IMINA RY-RE PORT: 03/[address] [facility] (Lab) [address] [place] [address], 24515, 03/17/2024 17:05:32 03/17/20 24 03/17/2024 COPLE Y COVID FLU RSV GENEX PERT julio césar covid flu RSV genexpert COVID RSV AND FLU A/B Not Available [facility] (Lab) [address] [place] [address], 66151, 03/17/2024 16:56:30 03/17/20 24 03/17/2024 COPLE Y COVID FLU RSV GENEX PERT covid NEGATI VE normal : negati ve Not Available [facility] (Lab) [address] [place] [address], 98111, 03/17/2024 16:56:30 03/17/20 24 03/17/2024 COPLE Y COVID FLU RSV GENEX PERT influenza A DNA NEGATI VE normal : negati ve Not Available [facility] (Lab) [address] [place] [address], 57763, 03/17/2024 16:56:30 03/17/20 24 03/17/2024 COPLE Y COVID FLU RSV GENEX PERT influenza B DNA NEGATI VE normal : negati ve Not Available [facility] (Lab) [address] [place] [address], 07785, 03/17/2024 16:56:30 03/17/20 24 03/17/2024 COPLE Y [...] nt manag ement . The resul ts sofíaul d be corre lated with the patie [...] es or patho gens. Perfo rmed at [facility] using the [employer] id GeneX pert SARS- CoV-2 /Flu/ RSV assay Not Available [facility] (Lab) [address] [place] [address], 16168, 03/17/2024 16:56:30 03/17/20 24 03/17/2024 URINA LYSIS WITH MICRO SCOPI C* collection mode: CLEAN CATCH Not Available [facility] (Lab) [address] [place] [address], 84973, 03/17/2024 16:39:35 03/17/20 24 03/17/2024 URINA LYSIS WITH MICRO SCOPI C* color YELLOW yellow Not Available [facility] (Lab) [address] [place] [address], 58550, 03/17/2024 16:39:35 03/17/20 24 03/17/2024 URINA LYSIS WITH MICRO SCOPI C* appearance CLOUDY clear Not Available [facility] (Lab) [address] [place] [address], 01735, 03/17/2024 16:39:35 03/17/20 24 03/17/2024 URINA LYSIS WITH MICRO SCOPI C* glucose urine NEGATI VE negati ve mg/dL Not Available [facility] (Lab) [address] [place] [address], 73936, 03/17/2024 16:39:35 03/17/20 24 03/17/2024 URINA LYSIS WITH MICRO SCOPI C* bilirubin NEGATI VE negati ve Not Available [facility] (Lab) [address] [place] [address], 14541, 03/17/2024 16:39:35 03/17/20 24 03/17/2024 URINA LYSIS WITH MICRO SCOPI C* ketones NEGATI VE negati ve mg/dL Not Available [facility] (Lab) [address] [place], [address], 03/17/2024 16:39:35 03/17/20 24 03/17/2024 URINA LYSIS WITH MICRO SCOPI C* spec gravity 1.020 1.003 - 1.[address] [facility] (Lab) [address] [place], [address], 03/17/2024 16:39:35 03/17/20 24 03/17/2024 URINA LYSIS WITH MICRO SCOPI C* pH urine 5.5 5.0 - 7.[address] [facility] (Lab) [address] [place] [address], 83660, 03/17/2024 16:39:35 03/17/20 24 03/17/2024 URINA LYSIS WITH MICRO SCOPI C* protein 100 negati ve mg/dL abnormal Not Available [facility] (Lab) [address] [place] [address], 01831, 03/17/2024 16:39:35 03/17/20 24 03/17/2024 URINA LYSIS WITH MICRO SCOPI C* urobilinogen 0.2 <or= 1 eu/dL Not Available [facility] (Lab) [address] [place] [address], [id number], 03/17/2024 16:39:35 03/17/20 24 03/17/2024 URINA LYSIS WITH MICRO SCOPI C* nitrite POSITI VE negati ve abnormal Not Available [facility] (Lab) [address] [place] [address], [id number], 03/17/2024 16:39:35 03/17/20 24 03/17/2024 URINA LYSIS WITH MICRO SCOPI C* blood LARGE negati ve abnormal Not Available [facility] (Lab) [address] [place] [address] [place], [id number], 03/17/2024 16:39:35 03/17/20 24 03/17/2024 URINA LYSIS WITH MICRO SCOPI C* leukocytes MODERA TE negati ve abnormal Not Available [facility] (Lab) [address] [place] [address], [id number], 03/17/2024 16:39:35 03/17/20 24 03/17/2024 URINA LYSIS WITH MICRO SCOPI C* WBCs 25-100 0-5 / hpf Not Available [facility] (Lab) [address] [place] [address], [id number], 03/17/2024 16:39:35 03/17/20 24 03/17/2024 URINA LYSIS WITH MICRO SCOPI C* RBCs 10-25 0-5 / hpf Not Available [facility] (Lab) [address] [place] [address], [id number], 03/17/2024 16:39:35 03/17/20 24 03/17/2024 URINA LYSIS WITH MICRO SCOPI C* epith cells none 0-5 / hpf Not Available [facility] (Lab) [address] [place] [address], 35152, 03/17/2024 16:39:35 03/17/20 24 03/17/2024 URINA LYSIS WITH MICRO SCOPI C* crystals none none Not Available [facility] (Lab) [address] [place] [address], 16763, 03/17/2024 16:39:35 03/17/20 24 03/17/2024 URINA LYSIS WITH MICRO SCOPI C* bacteria large none Not Available [facility] (Lab) [address] [place] [address], 52439, 03/17/2024 16:39:35 03/17/20 24 03/17/2024 URINA LYSIS WITH MICRO SCOPI C* mucus none none Not Available [facility] (Lab) [address] [place] [address], 31263, 03/17/2024 16:39:35 03/17/20 24 03/17/2024 URINA LYSIS WITH MICRO SCOPI C* casts none none /lpf Not Available [facility] (Lab) [address] [place], [address], 03/17/2024 16:39:35 03/18/20 24 03/18/2024 NOVA GLUCO SE FINGE R HEEL [place] glucose cap 135 mg/dL 70 - [address] [facility] (Lab) [address] [place], [address], 03/18/2024 21:09:17 03/18/20 24 03/18/2024 NOVA GLUCO SE FINGE R [employer]EL [place] glucose cap 135 mg/dL 70 - [address] [facility] (Lab) [address] [place] [address], 60253, 03/18/2024 21:09:15 03/18/20 24 03/18/2024 CBC W/ DIFFE RENTI AL* CBC w/ differential * CAMI ENDED REPOR T Not Available [facility] (Lab) [address] [place] [address], [id number], 03/23/2024 08:52:05 03/18/20 24 03/18/2024 CBC W/ DIFFE RENTI AL* WBC 13.71 TH/cm m 5.00 - 10.[address] [facility] (Lab) [address] [place], [address], 03/23/2024 08:52:05 03/18/20 24 03/18/2024 CBC W/ DIFFE RENTI AL* neut % 82.2 % 40.0 - 80.[address] [facility] (Lab) [address] [place] [address], 13465, 03/23/2024 08:52:05 03/18/20 24 03/18/2024 CBC W/ DIFFE RENTI AL* lymph % 4.0 % 10.0 - 50.[address] [facility] (Lab) [address] [place] [address], 56704, 03/23/2024 08:52:05 03/18/20 24 03/18/2024 CBC W/ DIFFE RENTI AL* mono % 13.1 % 2.0 - 12.[address] [facility] (Lab) [address] [place] [address], 33462, 03/23/2024 08:52:05 03/18/20 24 03/18/2024 CBC W/ DIFFE RENTI AL* eos % 0.1 % 0.0 - 8.[address] [facility] (Lab) [address] [place] [address], [id number], 03/23/2024 08:52:05 03/18/20 24 03/18/2024 CBC W/ DIFFE RENTI AL* baso % 0.1 % 0.0 - 3.[address] [facility] (Lab) [address] [place] [address], 04220, 03/23/2024 08:52:05 03/18/20 24 03/18/2024 CBC W/ DIFFE RENTI AL* Ig % 0.5 % 0.0 - 1.[address] [facility] (Lab) [address] [place] [address], [id number], 03/23/2024 08:52:05 03/18/20 24 03/18/2024 CBC W/ DIFFE RENTI AL* NRBC % 0.0 % 0.0 - 0.[address] [facility] (Lab) [address] [place] [address], 34366, 03/23/2024 08:52:05 03/18/20 24 03/18/2024 CBC W/ DIFFE RENTI AL* neut abs count 11.3 TH/cm m 1.6 - 8.[address] [facility] (Lab) [address] [place] [address], 20259, 03/23/2024 08:52:05 03/18/20 24 03/18/2024 CBC W/ DIFFE RENTI AL* lymph abs count 0.6 TH/cm m 1.5 - 4.[address] [facility] (Lab) [address] [place] [address], [id number], 03/23/2024 08:52:05 03/18/20 24 03/18/2024 CBC W/ DIFFE RENTI AL* mono abs count 1.8 TH/cm m 0.2 - 1.[address] [facility] (Lab) [address] [place], [address], 03/23/2024 08:52:05 03/18/20 24 03/18/2024 CBC W/ DIFFE RENTI AL* eos abs count 0.0 TH/cm m 0.0 - 0.[address] [facility] (Lab) [address] [place] [address], 74449, 03/23/2024 08:52:05 03/18/20 24 03/18/2024 CBC W/ DIFFE RENTI AL* baso abs count 0.0 TH/cm m 0.0 - 0.[address] [facility] (Lab) [address] [place] [address], 24843, 03/23/2024 08:52:05 03/18/20 24 03/18/2024 CBC W/ DIFFE RENTI AL* Ig abs count 0.1 TH/cm m 0.0 - 0.[address] [facility] (Lab) [address] [place] [address], 21034, 03/23/2024 08:52:05 03/18/20 24 03/18/2024 CBC W/ DIFFE RENTI AL* NRBC abs count 0.0 mil/c mm 0.0 - 0.[address] [facility] (Lab) [address] [place] [address], 13047, 03/23/2024 08:52:05 03/18/20 24 03/18/2024 CBC W/ DIFFE RENTI AL* RBC 3.51 mil/c mm 3.90 - 5.[address] [facility] (Lab) [address] [place] [address], 26051, 03/23/2024 08:52:05 03/18/20 24 03/18/2024 CBC W/ DIFFE RENTI AL* hemoglobin 10.6 gm/dL 12.0 - 16.[address] [facility] (Lab) [address] [place] [address], 87590, 03/23/2024 08:52:05 03/18/20 24 03/18/2024 CBC W/ DIFFE RENTI AL* hematocrit 33 % 37 - [address] [facility] (Lab) [address] [place] [address], 20872, 03/23/2024 08:52:05 03/18/20 24 03/18/2024 CBC W/ DIFFE RENTI AL* MCV 93 fL 82 - [address] [facility] (Lab) [address] [place] [address], 70734, 03/23/2024 08:52:05 03/18/20 24 03/18/2024 CBC W/ DIFFE RENTI AL* MCH 30.2 pg 27.0 - 31.[address] [facility] (Lab) [address] [place] [address], 88853, 03/23/2024 08:52:05 03/18/20 24 03/18/2024 CBC W/ DIFFE RENTI AL* MCHC 32.5 % 32.0 - 36.[address] [facility] (Lab) [address] [place] [address], 23817, 03/23/2024 08:52:05 03/18/20 24 03/18/2024 CBC W/ DIFFE RENTI AL* RDW-SD 48.5 fL 39.0 - 49.[address] [facility] (Lab) [address] [place] [address], 08868, 03/23/2024 08:52:05 03/18/20 24 03/18/2024 CBC W/ DIFFE RENTI AL* platelet count 79 TH/cm m 150 - [address] [facility] (Lab) [address] [place] [address], 53051, 03/23/2024 08:52:05 03/18/20 24 03/18/2024 CBC W/ DIFFE RENTI AL* toxic gran 1+ Not Available [facility] (Lab) [address] [place] [address], 68771, 03/23/2024 08:52:05 03/18/20 24 03/18/2024 CBC W/ DIFFE RENTI AL* vaccuol neutr 1+ Not Available [facility] (Lab) [address] [place] [address], 79192, 03/23/2024 08:52:05 03/18/20 24 03/18/2024 CBC W/ DIFFE RENTI AL* giant plts presen t -DARYL L -PREL IMINA RY-RE PORT: 03/[address] [facility] (Lab) [address] [place] [address], 58319, 03/23/2024 08:52:05 03/18/20 24 03/18/2024 CBC W/ DIFFE RENTI AL* WBC 13.71 TH/cm m 5.00 - 10.[address] [facility] (Lab) [address] [place] [address], 05354, 03/18/2024 20:11:14 03/18/20 24 03/18/2024 CBC W/ DIFFE RENTI AL* neut % 82.2 % 40.0 - 80.[address] [facility] (Lab) [address] [place] [address], 63370, 03/18/2024 20:11:14 03/18/20 24 03/18/2024 CBC W/ DIFFE RENTI AL* lymph % 4.0 % 10.0 - 50.[address] [facility] (Lab) [address] [place] [address], 48715, 03/18/2024 20:11:14 03/18/20 24 03/18/2024 CBC W/ DIFFE RENTI AL* mono % 13.1 % 2.0 - 12.[address] [facility] (Lab) [address] [place] [address], 31654, 03/18/2024 20:11:14 03/18/20 24 03/18/2024 CBC W/ DIFFE RENTI AL* eos % 0.1 % 0.0 - 8.[address] [facility] (Lab) [address] [place] [address], 11166, 03/18/2024 20:11:14 03/18/20 24 03/18/2024 CBC W/ DIFFE RENTI AL* baso % 0.1 % 0.0 - 3.[address] [facility] (Lab) [address] [place] [address], 30526, 03/18/2024 20:11:14 03/18/20 24 03/18/2024 CBC W/ DIFFE RENTI AL* Ig % 0.5 % 0.0 - 1.[address] [facility] (Lab) [address] [place] [address], 53748, 03/18/2024 20:11:14 03/18/20 24 03/18/2024 CBC W/ DIFFE RENTI AL* NRBC % 0.0 % 0.0 - 0.[address] [facility] (Lab) [address] [place] [address], 26616, 03/18/2024 20:11:14 03/18/20 24 03/18/2024 CBC W/ DIFFE RENTI AL* neut abs count 11.3 TH/cm m 1.6 - 8.[address] [facility] (Lab) [address] [place] [address], 79114, 03/18/2024 20:11:14 03/18/20 24 03/18/2024 CBC W/ DIFFE RENTI AL* lymph abs count 0.6 TH/cm m 1.5 - 4.[address] [facility] (Lab) [address] [place] [address], 66458, 03/18/2024 20:11:14 03/18/20 24 03/18/2024 CBC W/ DIFFE RENTI AL* mono abs count 1.8 TH/cm m 0.2 - 1.[address] [facility] (Lab) [address] [place] [address], 78450, 03/18/2024 20:11:14 03/18/20 24 03/18/2024 CBC W/ DIFFE RENTI AL* eos abs count 0.0 TH/cm m 0.0 - 0.[address] [facility] (Lab) [address] [place] [address], 96936, 03/18/2024 20:11:14 03/18/20 24 03/18/2024 CBC W/ DIFFE RENTI AL* baso abs count 0.0 TH/cm m 0.0 - 0.[address] [facility] (Lab) [address] [place] [address], 56114, 03/18/2024 20:11:14 03/18/20 24 03/18/2024 CBC W/ DIFFE RENTI AL* Ig abs count 0.1 TH/cm m 0.0 - 0.[address] [facility] (Lab) [address] [place] [address], 92643, 03/18/2024 20:11:14 03/18/20 24 03/18/2024 CBC W/ DIFFE RENTI AL* NRBC abs count 0.0 mil/c mm 0.0 - 0.[address] [facility] (Lab) [address] [place] [address], 01320, 03/18/2024 20:11:14 03/18/20 24 03/18/2024 CBC W/ DIFFE RENTI AL* RBC 3.51 mil/c mm 3.90 - 5.[address] [facility] (Lab) [address] [place] [address], 30051, 03/18/2024 20:11:14 03/18/20 24 03/18/2024 CBC W/ DIFFE RENTI AL* hemoglobin 10.6 gm/dL 12.0 - 16.[address] [facility] (Lab) [address] [place] [address], 77680, 03/18/2024 20:11:14 03/18/20 24 03/18/2024 CBC W/ DIFFE RENTI AL* hematocrit 33 % 37 - [address] [facility] (Lab) [address] [place] [address], 38898, 03/18/2024 20:11:14 03/18/20 24 03/18/2024 CBC W/ DIFFE RENTI AL* MCV 93 fL 82 - [address] [facility] (Lab) [address] [place] [address], 40259, 03/18/2024 20:11:14 03/18/20 24 03/18/2024 CBC W/ DIFFE RENTI AL* MCH 30.2 pg 27.0 - 31.[address] [facility] (Lab) [address] [place] [address], 80278, 03/18/2024 20:11:14 03/18/20 24 03/18/2024 CBC W/ DIFFE RENTI AL* MCHC 32.5 % 32.0 - 36.[address] [facility] (Lab) [address] [place] [address], 73629, 03/18/2024 20:11:14 03/18/20 24 03/18/2024 CBC W/ DIFFE RENTI AL* RDW-SD 48.5 fL 39.0 - 49.[address] [facility] (Lab) [address] [place] [address], 51677, 03/18/2024 20:11:14 03/18/20 24 03/18/2024 CBC W/ DIFFE RENTI AL* platelet count 79 TH/cm m 150 - [address] [facility] (Lab) [address] [place] [address], 49576, 03/18/2024 20:11:14 03/18/20 24 03/18/2024 CBC W/ DIFFE RENTI AL* toxic gran 1+ Not Available [facility] (Lab) [address] [place] [address], 38209, 03/18/2024 20:11:14 03/18/20 24 03/18/2024 CBC W/ DIFFE RENTI AL* vaccuol neutr 1+ -DARYL L -PREL IMINA RY-RE PORT: 03/[address] [facility] (Lab) [address] [place] [address], 45375, 03/18/2024 20:11:14 03/18/20 24 03/18/2024 BASIC METAB OLIC PANEL (BMP) glucose 147 mg/dL 70 - [address] [facility] (Lab) [address] [place] [address], 49469, 03/18/2024 19:03:13 03/18/20 24 03/18/2024 BASIC METAB OLIC PANEL (BMP) BUN 29 mg/dL 7 - [address] [facility] (Lab) [address] [place] [address], 52411, 03/18/2024 19:03:13 03/18/20 24 03/18/2024 BASIC METAB OLIC PANEL (BMP) creatinine 1.15 mg/dL 0.52 - 1.[address] [facility] (Lab) [address] [place], [address], 03/18/2024 19:03:13 03/18/20 24 03/18/2024 BASIC METAB OLIC PANEL (BMP) sodium serum 128 mmol/ L 136 - [address] [facility] (Lab) [address] [place] [address], [id number], 03/18/2024 19:03:13 03/18/20 24 03/18/2024 BASIC METAB OLIC PANEL (BMP) potassium serum 5.1 mmol/ L 3.4 - 5.[address] [facility] (Lab) [address] [place] [address], 79002, 03/18/2024 19:03:13 03/18/20 24 03/18/2024 BASIC METAB OLIC PANEL (BMP) chloride serum 102 mmol/ L 98 - [address] [facility] (Lab) [address] [place] [address], 92704, 03/18/2024 19:03:13 03/18/20 24 03/18/2024 BASIC METAB OLIC PANEL (BMP) carbon dioxide (co2) 19 mmol/ L 22 - [address] [facility] (Lab) [address] [place] [address], 06680, 03/18/2024 19:03:13 03/18/20 24 03/18/2024 BASIC METAB OLIC PANEL (BMP) anion gap 7.1 mmol/ L Not Available [facility] (Lab) [address] [place], [address], 03/18/2024 19:03:13 03/18/20 24 03/18/2024 BASIC METAB OLIC PANEL (BMP) calcium serum 8.0 mg/dL 8.4 - 10.[address] [facility] (Lab) [address] [place], [address], 03/18/2024 19:03:13 03/18/20 24 03/18/2024 BASIC METAB OLIC PANEL (BMP) age 83 [address] [facility] (Lab) [address] [place] [address], 59211, 03/18/2024 19:03:13 03/18/20 24 03/18/2024 BASIC METAB OLIC PANEL (BMP) eGFR (non-afr.hayde r.) 45 mL/mi n Not Available [facility] (Lab) [address] [place], [address], 03/18/2024 19:03:13 03/18/20 24 03/18/2024 BASIC METAB [...] than 18 years of age. Not Available [facility] (Lab) [address] [place] [address], 53234, 03/18/2024 19:03:13 03/18/20 24 03/18/2024 CBC W/ DIFFE JUDITH AL* WBC 13.71 TH/cm m 5.00 - 10.[address] [facility] (Lab) [address] [place] [address], 66265, 03/18/2024 18:56:13 03/18/20 24 03/18/2024 CBC W/ DIFFE RENTI AL* neut % 82.2 % 40.0 - 80.[address] [facility] (Lab) [address] [place] [address], 86280, 03/18/2024 18:56:13 03/18/20 24 03/18/2024 CBC W/ DIFFE RENTI AL* lymph % 4.0 % 10.0 - 50.[address] [facility] (Lab) [address] [place] [address], 33103, 03/18/2024 18:56:13 03/18/20 24 03/18/2024 CBC W/ DIFFE RENTI AL* mono % 13.1 % 2.0 - 12.[address] [facility] (Lab) [address] [place] [address], 15801, 03/18/2024 18:56:13 03/18/20 24 03/18/2024 CBC W/ DIFFE RENTI AL* eos % 0.1 % 0.0 - 8.[address] [facility] (Lab) [address] [place] [address], 99881, 03/18/2024 18:56:13 03/18/20 24 03/18/2024 CBC W/ DIFFE RENTI AL* baso % 0.1 % 0.0 - 3.[address] [facility] (Lab) [address] [place] [address], 45063, 03/18/2024 18:56:13 03/18/20 24 03/18/2024 CBC W/ DIFFE RENTI AL* Ig % 0.5 % 0.0 - 1.[address] [facility] (Lab) [address] [place] [address], 81488, 03/18/2024 18:56:13 03/18/20 24 03/18/2024 CBC W/ DIFFE RENTI AL* NRBC % 0.0 % 0.0 - 0.[address] [facility] (Lab) [address] [place], [address], 03/18/2024 18:56:13 03/18/20 24 03/18/2024 CBC W/ DIFFE RENTI AL* neut abs count 11.3 TH/cm m 1.6 - 8.[address] [facility] (Lab) [address] [place], [address], 03/18/2024 18:56:13 03/18/20 24 03/18/2024 CBC W/ DIFFE RENTI AL* lymph abs count 0.6 TH/cm m 1.5 - 4.[address] [facility] (Lab) [address] [place] [address], 08388, 03/18/2024 18:56:13 03/18/20 24 03/18/2024 CBC W/ DIFFE RENTI AL* mono abs count 1.8 TH/cm m 0.2 - 1.[address] [facility] (Lab) [address] [place] [address], 81079, 03/18/2024 18:56:13 03/18/20 24 03/18/2024 CBC W/ DIFFE RENTI AL* eos abs count 0.0 TH/cm m 0.0 - 0.[address] [facility] (Lab) [address] [place] [address], 51031, 03/18/2024 18:56:13 03/18/20 24 03/18/2024 CBC W/ DIFFE RENTI AL* baso abs count 0.0 TH/cm m 0.0 - 0.[address] [facility] (Lab) [address] [place] [address], 66343, 03/18/2024 18:56:13 03/18/20 24 03/18/2024 CBC W/ DIFFE RENTI AL* Ig abs count 0.1 TH/cm m 0.0 - 0.[address] [facility] (Lab) [address] [place] [address], 37539, 03/18/2024 18:56:13 03/18/20 24 03/18/2024 CBC W/ DIFFE RENTI AL* NRBC abs count 0.0 mil/c mm 0.0 - 0.[address] [facility] (Lab) [address] [place] [address], 16218, 03/18/2024 18:56:13 03/18/20 24 03/18/2024 CBC W/ DIFFE RENTI AL* RBC 3.51 mil/c mm 3.90 - 5.[address] [facility] (Lab) [address] [place] [address], 25302, 03/18/2024 18:56:13 03/18/20 24 03/18/2024 CBC W/ DIFFE RENTI AL* hemoglobin 10.6 gm/dL 12.0 - 16.[address] [facility] (Lab) [address] [place] [address], 96252, 03/18/2024 18:56:13 03/18/20 24 03/18/2024 CBC W/ DIFFE RENTI AL* hematocrit 33 % 37 - [address] [facility] (Lab) [address] [place] [address], 38958, 03/18/2024 18:56:13 03/18/20 24 03/18/2024 CBC W/ DIFFE RENTI AL* MCV 93 fL 82 - [address] [facility] (Lab) [address] [place] [address], 09906, 03/18/2024 18:56:13 03/18/20 24 03/18/2024 CBC W/ DIFFE RENTI AL* MCH 30.2 pg 27.0 - 31.[address] [facility] (Lab) [address] [place] [address], 38390, 03/18/2024 18:56:13 03/18/20 24 03/18/2024 CBC W/ DIFFE RENTI AL* MCHC 32.5 % 32.0 - 36.[address] [facility] (Lab) [address] [place] [address], 16292, 03/18/2024 18:56:13 03/18/20 24 03/18/2024 CBC W/ DIFFE RENTI AL* RDW-SD 48.5 fL 39.0 - 49.[address] [facility] (Lab) [address] [place] [address], 00575, 03/18/2024 18:56:13 03/18/20 24 03/18/2024 CBC W/ DIFFE RENTI AL* platelet count 79 TH/cm m 150 - 450 low -PREL IMINA RY-RE PORT: 03/[address] [facility] (Lab) [address] [place] [address], 02758, 03/18/2024 18:56:13 03/18/20 24 03/18/2024 LACTI C ACID lactic acid 2.3 mmol/ L 0.7 - 2.[address] [facility] (Lab) [address] [place] [address], 45895, 03/18/2024 18:56:12 03/18/20 24 03/18/2024 NOVA GLUCO SE FINGE R HEEL [place]IL [place] glucose cap 141 mg/dL 70 - [address] [facility] (Lab) [address] [place], [address], 03/18/2024 17:22:09 03/18/20 24 03/18/2024 NOVA GLUCO SE FINGE R HEEL [place] glucose cap 211 mg/dL 70 - [address] [facility] (Lab) [address] [place] [address], 45438, 03/18/2024 12:02:06 12/11/20 24 03/18/2024 LACTI C ACID lactic acid 2.2 mmol/ L 0.7 - 2.[address] [facility] (Lab) [address] [place] [address], 46368, 03/18/2024 08:29:40 03/18/20 24 03/18/2024 NOVA GLUCO SE FINGE R HEEL [place] glucose cap 298 mg/dL 70 - [address] [facility] (Lab) [address] [place] [address], 86791, 03/18/2024 07:57:37 03/18/20 24 03/18/2024 NOVA GLUCO SE FINGE R HEEL [place] glucose cap 199 mg/dL 70 - [address] [facility] (Lab) [address] [place] [address], 34358, 03/18/2024 02:32:15 03/18/20 24 03/18/2024 CBC W/ DIFFE RENTI AL* WBC 14.26 TH/cm m 5.00 - 10.[address] [facility] (Lab) [address] [place] [address], 43530, 03/18/2024 05:39:30 03/18/20 24 03/18/2024 CBC W/ DIFFE RENTI AL* neut % 83.7 % 40.0 - 80.[address] [facility] (Lab) [address] [place] [address], 30938, 03/18/2024 05:39:30 03/18/20 24 03/18/2024 CBC W/ DIFFE RENTI AL* lymph % 3.7 % 10.0 - 50.[address] [facility] (Lab) [address] [place] [address], 61572, 03/18/2024 05:39:30 03/18/20 24 03/18/2024 CBC W/ DIFFE RENTI AL* mono % 11.6 % 2.0 - 12.[address] [facility] (Lab) [address] [place] [address], 46728, 03/18/2024 05:39:30 03/18/20 24 03/18/2024 CBC W/ DIFFE RENTI AL* eos % 0.1 % 0.0 - 8.[address] [facility] (Lab) [address] [place] [address], 56329, 03/18/2024 05:39:30 03/18/20 24 03/18/2024 CBC W/ DIFFE RENTI AL* baso % 0.1 % 0.0 - 3.[address] [facility] (Lab) [address] [place] [address], 19018, 03/18/2024 05:39:30 03/18/20 24 03/18/2024 CBC W/ DIFFE RENTI AL* Ig % 0.8 % 0.0 - 1.[address] [facility] (Lab) [address] [place] [address], 51932, 03/18/2024 05:39:30 03/18/20 24 03/18/2024 CBC W/ DIFFE RENTI AL* NRBC % 0.0 % 0.0 - 0.[address] [facility] (Lab) [address] [place] [address], 81576, 03/18/2024 05:39:30 03/18/20 24 03/18/2024 CBC W/ DIFFE RENTI AL* neut abs count 11.9 TH/cm m 1.6 - 8.[address] [facility] (Lab) [address] [place] [address], 69239, 03/18/2024 05:39:30 03/18/20 24 03/18/2024 CBC W/ DIFFE RENTI AL* lymph abs count 0.5 TH/cm m 1.5 - 4.[address] [facility] (Lab) [address] [place], [id number], 03/18/2024 05:39:30 03/18/20 24 03/18/2024 CBC W/ DIFFE RENTI AL* mono abs count 1.7 TH/cm m 0.2 - 1.[address] [facility] (Lab) [address] [place] [address], [id number], 03/18/2024 05:39:30 03/18/20 24 03/18/2024 CBC W/ DIFFE RENTI AL* eos abs count 0.0 TH/cm m 0.0 - 0.[address] [facility] (Lab) [address] [place] [address], [id number], 03/18/2024 05:39:30 03/18/20 24 03/18/2024 CBC W/ DIFFE RENTI AL* baso abs count 0.0 TH/cm m 0.0 - 0.[address] [facility] (Lab) [address] [place] [address], [id number], 03/18/2024 05:39:30 03/18/20 24 03/18/2024 CBC W/ DIFFE RENTI AL* Ig abs count 0.1 TH/cm m 0.0 - 0.[address] [facility] (Lab) [address] [place] [address], [id number], 03/18/2024 05:39:30 03/18/20 24 03/18/2024 CBC W/ DIFFE RENTI AL* NRBC abs count 0.0 mil/c mm 0.0 - 0.[address] [facility] (Lab) [address] [place] [address], [id number], 03/18/2024 05:39:30 03/18/20 24 03/18/2024 CBC W/ DIFFE RENTI AL* RBC 3.60 mil/c mm 3.90 - 5.[address] [facility] (Lab) [address] [place] [address], [id number], 03/18/2024 05:39:30 03/18/20 24 03/18/2024 CBC W/ DIFFE RENTI AL* hemoglobin 10.9 gm/dL 12.0 - 16.[address] [facility] (Lab) [address] [place] [address], [id number], 03/18/2024 05:39:30 03/18/20 24 03/18/2024 CBC W/ DIFFE RENTI AL* hematocrit 33 % 37 - [address] [facility] (Lab) [address] [place] [address], [id number], 03/18/2024 05:39:30 03/18/20 24 03/18/2024 CBC W/ DIFFE RENTI AL* MCV 91 fL 82 - [address] [facility] (Lab) [address] [place] [address], [id number], 03/18/2024 05:39:30 03/18/20 24 03/18/2024 CBC W/ DIFFE RENTI AL* MCH 30.3 pg 27.0 - 31.[address] [facility] (Lab) [address] [place] [address], [id number], 03/18/2024 05:39:30 03/18/20 24 03/18/2024 CBC W/ DIFFE RENTI AL* MCHC 33.2 % 32.0 - 36.[address] [facility] (Lab) [address] [place] [address], [id number], 03/18/2024 05:39:30 03/18/20 24 03/18/2024 CBC W/ DIFFE RENTI AL* RDW-SD 46.9 fL 39.0 - 49.[address] [facility] (Lab) [address] [place] [address], [id number], 03/18/2024 05:39:30 03/18/20 24 03/18/2024 CBC W/ DIFFE RENTI AL* platelet count 82 TH/cm m 150 - 450 low -PREL IMINA RY-RE PORT: 03/18 0239 -DARYL L Not Available [facility] (Lab) [address] [place] [address], [id number], 03/18/2024 05:39:30 03/18/20 24 03/18/2024 BASIC METAB OLIC PANEL (BMP) glucose 199 mg/dL 70 - [address] [facility] (Lab) [address] [place], [id number], 03/18/2024 02:52:17 03/18/20 24 03/18/2024 BASIC METAB OLIC PANEL (BMP) BUN 26 mg/dL 7 - [address] [facility] (Lab) [address] [place] [address], [id number], 03/18/2024 02:52:17 03/18/20 24 03/18/2024 BASIC METAB OLIC PANEL (BMP) creatinine 1.01 mg/dL 0.52 - 1.[address] [facility] (Lab) [address] [place] [address], [id number], 03/18/2024 02:52:17 03/18/20 24 03/18/2024 BASIC METAB OLIC PANEL (BMP) sodium serum 131 mmol/ L 136 - [address] [facility] (Lab) [address] [place] [address], 38901, 03/18/2024 02:52:17 03/18/20 24 03/18/2024 BASIC METAB OLIC PANEL (BMP) potassium serum 2.7 mmol/ L 3.4 - 5.2 critical low { COMME NT: *Conf .-and -call ed-to MUKESH LANDRY TT ER Read- back- confi rmed Not Available [facility] (Lab) [address] [place] [address], 13344, 03/18/2024 02:52:17 03/18/20 24 03/18/2024 BASIC METAB OLIC PANEL (BMP) chloride serum 101 mmol/ L 98 - [address] [facility] (Lab) [address] [place] [address], 33150, 03/18/2024 02:52:17 03/18/20 24 03/18/2024 BASIC METAB OLIC PANEL (BMP) carbon dioxide (co2) 25 mmol/ L 22 - [address] [facility] (Lab) [address] [place] [address], 09743, 03/18/2024 02:52:17 03/18/20 24 03/18/2024 BASIC METAB OLIC PANEL (BMP) anion gap 5.6 mmol/ L Not Available [facility] (Lab) [address] [place] [address], 50536, 03/18/2024 02:52:17 03/18/20 24 03/18/2024 BASIC METAB OLIC PANEL (BMP) calcium serum 8.8 mg/dL 8.4 - 10.[address] [facility] (Lab) [address] [place] [address], [id number], 03/18/2024 02:52:17 03/18/20 24 03/18/2024 BASIC METAB OLIC PANEL (BMP) age [address] [facility] (Lab) [address] [place] [address], 39362, 03/18/2024 02:52:17 03/18/20 24 03/18/2024 BASIC METAB OLIC PANEL (BMP) eGFR (non-afr.hayde r.) 52 mL/mi n Not Available [facility] (Lab) [address] [place] [address], 98312, 03/18/2024 02:52:17 03/18/20 24 03/18/2024 BASIC METAB [...] than 18 years of age. Not Available [facility] (Lab) [address] [place] [address], 53336, 03/18/2024 02:52:17 03/18/20 24 03/18/2024 LACTI C ACID lactic acid 2.2 mmol/ L 0.7 - 2.[address] [facility] (Lab) [address] [place] [address], 15532, 03/18/2024 02:51:16 03/18/20 24 03/18/2024 CBC W/ DIFFE RENTI AL* WBC 14.26 TH/cm m 5.00 - 10.[address] [facility] (Lab) [address] [place] [address], 74544, 03/18/2024 02:40:16 03/18/20 24 03/18/2024 CBC W/ DIFFE RENTI AL* neut % 83.7 % 40.0 - 80.[address] [facility] (Lab) [address] [place] [address], 69474, 03/18/2024 02:40:16 03/18/20 24 03/18/2024 CBC W/ DIFFE RENTI AL* lymph % 3.7 % 10.0 - 50.[address] [facility] (Lab) [address] [place] [address], 58801, 03/18/2024 02:40:16 03/18/20 24 03/18/2024 CBC W/ DIFFE RENTI AL* mono % 11.6 % 2.0 - 12.[address] [facility] (Lab) [address] [place] [address], 27668, 03/18/2024 02:40:16 03/18/20 24 03/18/2024 CBC W/ DIFFE RENTI AL* eos % 0.1 % 0.0 - 8.[address] [facility] (Lab) [address] [place] [address], 20057, 03/18/2024 02:40:16 03/18/20 24 03/18/2024 CBC W/ DIFFE RENTI AL* baso % 0.1 % 0.0 - 3.[address] [facility] (Lab) [address] [place] [address], [id number], 03/18/2024 02:40:16 03/18/20 24 03/18/2024 CBC W/ DIFFE RENTI AL* Ig % 0.8 % 0.0 - 1.[address] [facility] (Lab) [address] [place] [address], 26054, 03/18/2024 02:40:16 03/18/20 24 03/18/2024 CBC W/ DIFFE RENTI AL* NRBC % 0.0 % 0.0 - 0.[address] [facility] (Lab) [address] [place] [address], 60378, 03/18/2024 02:40:16 03/18/20 24 03/18/2024 CBC W/ DIFFE RENTI AL* neut abs count 11.9 TH/cm m 1.6 - 8.[address] [facility] (Lab) [address] [place] [address], 15571, 03/18/2024 02:40:16 03/18/20 24 03/18/2024 CBC W/ DIFFE RENTI AL* lymph abs count 0.5 TH/cm m 1.5 - 4.[address] [facility] (Lab) [address] [place] [address], 89715, 03/18/2024 02:40:16 03/18/20 24 03/18/2024 CBC W/ DIFFE RENTI AL* mono abs count 1.7 TH/cm m 0.2 - 1.[address] [facility] (Lab) [address] [place] [address], 68509, 03/18/2024 02:40:16 03/18/20 24 03/18/2024 CBC W/ DIFFE RENTI AL* eos abs count 0.0 TH/cm m 0.0 - 0.[address] [facility] (Lab) [address] [place] [address], 21181, 03/18/2024 02:40:16 03/18/20 24 03/18/2024 CBC W/ DIFFE RENTI AL* baso abs count 0.0 TH/cm m 0.0 - 0.[address] [facility] (Lab) [address] [place] [address], 96578, 03/18/2024 02:40:16 03/18/20 24 03/18/2024 CBC W/ DIFFE RENTI AL* Ig abs count 0.1 TH/cm m 0.0 - 0.[address] [facility] (Lab) [address] [place] [address], 09375, 03/18/2024 02:40:16 03/18/20 24 03/18/2024 CBC W/ DIFFE RENTI AL* NRBC abs count 0.0 mil/c mm 0.0 - 0.[address] [facility] (Lab) [address] [place] [address], 13017, 03/18/2024 02:40:16 03/18/20 24 03/18/2024 CBC W/ DIFFE RENTI AL* RBC 3.60 mil/c mm 3.90 - 5.[address] [facility] (Lab) [address] [place] [address], 40181, 03/18/2024 02:40:16 03/18/20 24 03/18/2024 CBC W/ DIFFE RENTI AL* hemoglobin 10.9 gm/dL 12.0 - 16.[address] [facility] (Lab) [address] [place], [address], 03/18/2024 02:40:16 03/18/20 24 03/18/2024 CBC W/ DIFFE RENTI AL* hematocrit 33 % 37 - [address] [facility] (Lab) [address] [place] [address], 38274, 03/18/2024 02:40:16 03/18/20 24 03/18/2024 CBC W/ DIFFE RENTI AL* MCV 91 fL 82 - [address] [facility] (Lab) [address] [place] [address], 16604, 03/18/2024 02:40:16 03/18/20 24 03/18/2024 CBC W/ DIFFE RENTI AL* MCH 30.3 pg 27.0 - 31.[address] [facility] (Lab) [address] [place] [address], 10591, 03/18/2024 02:40:16 03/18/20 24 03/18/2024 CBC W/ DIFFE RENTI AL* MCHC 33.2 % 32.0 - 36.[address] [facility] (Lab) [address] [place] [address], 17471, 03/18/2024 02:40:16 03/18/20 24 03/18/2024 CBC W/ DIFFE RENTI AL* RDW-SD 46.9 fL 39.0 - 49.[address] [facility] (Lab) [address] [place] [address], 96506, 03/18/2024 02:40:16 03/18/20 24 03/18/2024 CBC W/ DIFFE RENTI AL* platelet count 82 TH/cm m 150 - 450 low -PREL IMINA RY-RE PORT: 03/[address] [facility] (Lab) [address] [place] [address], 14311, 03/18/2024 02:40:16 03/19/20 24 03/19/2024 NOVA GLUCO SE FINGE R HEEL CAPIL ROCKY glucose cap 87 mg/dL 70 - [address] [facility] (Lab) [address] [place] [address], 64642, 03/19/2024 08:34:18 03/19/20 24 03/19/2024 CBC W/ DIFFE RENTI AL* WBC 12.62 TH/cm m 5.00 - 10.[address] [facility] (Lab) [address] [place] [address], 13117, 03/19/2024 09:10:22 03/19/20 24 03/19/2024 CBC W/ DIFFE RENTI AL* neut % 80.0 % 40.0 - 80.[address] [facility] (Lab) [address] [place] [address], 21187, 03/19/2024 09:10:22 03/19/20 24 03/19/2024 CBC W/ DIFFE RENTI AL* lymph % 6.3 % 10.0 - 50.[address] [facility] (Lab) [address] [place] [address], 54235, 03/19/2024 09:10:22 03/19/20 24 03/19/2024 CBC W/ DIFFE RENTI AL* mono % 12.7 % 2.0 - 12.[address] [facility] (Lab) [address] [place] [address], 81613, 03/19/2024 09:10:22 03/19/20 24 03/19/2024 CBC W/ DIFFE RENTI AL* eos % 0.2 % 0.0 - 8.[address] [facility] (Lab) [address] [place] [address], 88987, 03/19/2024 09:10:22 03/19/20 24 03/19/2024 CBC W/ DIFFE RENTI AL* baso % 0.2 % 0.0 - 3.[address] [facility] (Lab) [address] [place] [address], 92142, 03/19/2024 09:10:22 03/19/20 24 03/19/2024 CBC W/ DIFFE RENTI AL* Ig % 0.6 % 0.0 - 1.[address] [facility] (Lab) [address] [place] [address], 98616, 03/19/2024 09:10:22 03/19/20 24 03/19/2024 CBC W/ DIFFE RENTI AL* NRBC % 0.0 % 0.0 - 0.[address] [facility] (Lab) [address] [place] [address], 30846, 03/19/2024 09:10:22 03/19/20 24 03/19/2024 CBC W/ DIFFE RENTI AL* neut abs count 10.1 TH/cm m 1.6 - 8.[address] [facility] (Lab) [address] [place] [address], 95652, 03/19/2024 09:10:22 03/19/20 24 03/19/2024 CBC W/ DIFFE RENTI AL* lymph abs count 0.8 TH/cm m 1.5 - 4.[address] [facility] (Lab) [address] [place] [address], 14048, 03/19/2024 09:10:22 03/19/20 24 03/19/2024 CBC W/ DIFFE RENTI AL* mono abs count 1.6 TH/cm m 0.2 - 1.[address] [facility] (Lab) [address] [place] [address], 75635, 03/19/2024 09:10:22 03/19/20 24 03/19/2024 CBC W/ DIFFE RENTI AL* eos abs count 0.0 TH/cm m 0.0 - 0.[address] [facility] (Lab) [address] [place], [address], 03/19/2024 09:10:22 03/19/20 24 03/19/2024 CBC W/ DIFFE RENTI AL* baso abs count 0.0 TH/cm m 0.0 - 0.[address] [facility] (Lab) [address] [place] [address], 36753, 03/19/2024 09:10:22 03/19/20 24 03/19/2024 CBC W/ DIFFE RENTI AL* Ig abs count 0.1 TH/cm m 0.0 - 0.[address] [facility] (Lab) [address] [place] [address], 33688, 03/19/2024 09:10:22 03/19/20 24 03/19/2024 CBC W/ DIFFE RENTI AL* NRBC abs count 0.0 mil/c mm 0.0 - 0.[address] [facility] (Lab) [address] [place] [address], 61355, 03/19/2024 09:10:22 03/19/20 24 03/19/2024 CBC W/ DIFFE RENTI AL* RBC 3.59 mil/c mm 3.90 - 5.[address] [facility] (Lab) [address] [place] [address], 86494, 03/19/2024 09:10:22 03/19/20 24 03/19/2024 CBC W/ DIFFE RENTI AL* hemoglobin 10.8 gm/dL 12.0 - 16.[address] [facility] (Lab) [address] [place] [address], 09918, 03/19/2024 09:10:22 03/19/20 24 03/19/2024 CBC W/ DIFFE RENTI AL* hematocrit 33 % 37 - [address] [facility] (Lab) [address] [place] [address], 37073, 03/19/2024 09:10:22 03/19/20 24 03/19/2024 CBC W/ DIFFE RENTI AL* MCV 91 fL 82 - [address] [facility] (Lab) [address] [place] [address], 02048, 03/19/2024 09:10:22 03/19/20 24 03/19/2024 CBC W/ DIFFE RENTI AL* MCH 30.1 pg 27.0 - 31.[address] [facility] (Lab) [address] [place] [address], 05796, 03/19/2024 09:10:22 03/19/20 24 03/19/2024 CBC W/ DIFFE RENTI AL* MCHC 33.0 % 32.0 - 36.[address] [facility] (Lab) [address] [place] [address], 18141, 03/19/2024 09:10:22 03/19/20 24 03/19/2024 CBC W/ DIFFE RENTI AL* RDW-SD 47.6 fL 39.0 - 49.[address] [facility] (Lab) [address] [place] [address], 49851, 03/19/2024 09:10:22 03/19/20 24 03/19/2024 CBC W/ DIFFE RENTI AL* platelet count 89 TH/cm m 150 - [address] [facility] (Lab) [address] [place] [address], 56556, 03/19/2024 09:10:22 03/19/20 24 03/19/2024 CBC W/ DIFFE RENTI AL* ovalocytes 2+ -PREL IMINA RY-RE PORT: 03/19 0813 -DARYL L Not Available [facility] (Lab) [address] [place] [address], 80935, 03/19/2024 09:10:22 03/19/20 24 03/19/2024 MAGNE SIUM SERUM * magnesium 1.2 mg/dL 1.6 - 2.[address] [facility] (Lab) [address] [place] [address], 66577, 03/19/2024 10:10:30 03/19/20 24 03/19/2024 BASIC METAB OLIC PANEL (BMP) glucose 80 mg/dL 70 - [address] [facility] (Lab) [address] [place] [address], 97500, 03/19/2024 09:30:26 03/19/20 24 03/19/2024 BASIC METAB OLIC PANEL (BMP) BUN 32 mg/dL 7 - [address] [facility] (Lab) [address] [place] [address], 93653, 03/19/2024 09:30:26 03/19/20 24 03/19/2024 BASIC METAB OLIC PANEL (BMP) creatinine 1.18 mg/dL 0.52 - 1.[address] [facility] (Lab) [address] [place] [address], 60089, 03/19/2024 09:30:26 03/19/20 24 03/19/2024 BASIC METAB OLIC PANEL (BMP) sodium serum 132 mmol/ L 136 - [address] [facility] (Lab) [address] [place] [address], 78303, 03/19/2024 09:30:26 03/19/20 24 03/19/2024 BASIC METAB OLIC PANEL (BMP) potassium serum 4.6 mmol/ L 3.4 - 5.[address] [facility] (Lab) [address] [place] [address], 72783, 03/19/2024 09:30:26 03/19/20 24 03/19/2024 BASIC METAB OLIC PANEL (BMP) chloride serum 104 mmol/ L 98 - [address] [facility] (Lab) [address] [place] [address], 18243, 03/19/2024 09:30:26 03/19/20 24 03/19/2024 BASIC METAB OLIC PANEL (BMP) carbon dioxide (co2) 20 mmol/ L 22 - [address] [facility] (Lab) [address] [place] [address], 60985, 03/19/2024 09:30:26 03/19/20 24 03/19/2024 BASIC METAB OLIC PANEL (BMP) anion gap 7.4 mmol/ L Not Available [facility] (Lab) [address] [place] [address], 14967, 03/19/2024 09:30:26 03/19/20 24 03/19/2024 BASIC METAB OLIC PANEL (BMP) calcium serum 8.5 mg/dL 8.4 - 10.[address] [facility] (Lab) [address] [place] [address], 82005, 03/19/2024 09:30:26 03/19/20 24 03/19/2024 BASIC METAB OLIC PANEL (BMP) age [address] [facility] (Lab) [address] [place] [address], 49016, 03/19/2024 09:30:26 03/19/20 24 03/19/2024 BASIC METAB OLIC PANEL (BMP) eGFR (non-afr.hayde r.) 44 mL/mi n Not Available [facility] (Lab) [address] [place] [address], 63856, 03/19/2024 09:30:26 03/19/20 24 03/19/2024 BASIC METAB [...] than 18 years of age. Not Available [facility] (Lab) [address] [place] [address], 54582, 03/19/2024 09:30:26 03/19/20 24 03/19/2024 LACTI C ACID lactic acid 1.8 mmol/ L 0.7 - 2.[address] [facility] (Lab) [address] [place] [address], 74996, 03/19/2024 09:29:26 03/19/20 24 03/19/2024 CBC W/ DIFFE RENTI AL* WBC 12.62 TH/cm m 5.00 - 10.[address] [facility] (Lab) [address] [place] [address], 99712, 03/19/2024 08:14:14 03/19/20 24 03/19/2024 CBC W/ DIFFE RENTI AL* neut % 80.0 % 40.0 - 80.[address] [facility] (Lab) [address] [place] [address], 17604, 03/19/2024 08:14:14 03/19/20 24 03/19/2024 CBC W/ DIFFE RENTI AL* lymph % 6.3 % 10.0 - 50.[address] [facility] ([facility]) [address] [place] [address], 65429, 03/19/2024 08:14:14 03/19/20 24 03/19/2024 CBC W/ DIFFE RENTI AL* mono % 12.7 % 2.0 - 12.[address] [facility] ([facility]) [address] [place] [address], 36440, 03/19/2024 08:14:14 03/19/20 24 03/19/2024 CBC W/ DIFFE RENTI AL* eos % 0.2 % 0.0 - 8.[address] [facility] ([facility]) [address] [place] [address], 32367, 03/19/2024 08:14:14 03/19/20 24 03/19/2024 CBC W/ DIFFE RENTI AL* baso % 0.2 % 0.0 - 3.[address] [facility] (Lab) [address] [place], [address], 03/19/2024 08:14:14 03/19/20 24 03/19/2024 CBC W/ DIFFE RENTI AL* Ig % 0.6 % 0.0 - 1.[address] [facility] (Lab) [address] [place], [address], 03/19/2024 08:14:14 03/19/20 24 03/19/2024 CBC W/ DIFFE RENTI AL* NRBC % 0.0 % 0.0 - 0.[address] [facility] ([facility]) [address] [place] [address], 00804, 03/19/2024 08:14:14 03/19/20 24 03/19/2024 CBC W/ DIFFE RENTI AL* neut abs count 10.1 TH/cm m 1.6 - 8.[address] [facility] ([facility]) [address] [place] [address], 56673, 03/19/2024 08:14:14 03/19/20 24 03/19/2024 CBC W/ DIFFE RENTI AL* lymph abs count 0.8 TH/cm m 1.5 - 4.[address] [facility] (Lab) [address] [place] [address], 48175, 03/19/2024 08:14:14 03/19/20 24 03/19/2024 CBC W/ DIFFE RENTI AL* mono abs count 1.6 TH/cm m 0.2 - 1.[address] [facility] ([facility]) [address] [place] [address], 72145, 03/19/2024 08:14:14 03/19/20 24 03/19/2024 CBC W/ DIFFE RENTI AL* eos abs count 0.0 TH/cm m 0.0 - 0.[address] [facility] ([facility]) [address] [place] [address], 73343, 03/19/2024 08:14:14 03/19/20 24 03/19/2024 CBC W/ DIFFE RENTI AL* baso abs count 0.0 TH/cm m 0.0 - 0.[address] [facility] ([facility]) [address] [place] [address], 68712, 03/19/2024 08:14:14 03/19/20 24 03/19/2024 CBC W/ DIFFE RENTI AL* Ig abs count 0.1 TH/cm m 0.0 - 0.[address] [facility] ([facility]) [address] [place] [address], 08191, 03/19/2024 08:14:14 03/19/20 24 03/19/2024 CBC W/ DIFFE RENTI AL* NRBC abs count 0.0 mil/c mm 0.0 - 0.[address] [facility] ([facility]) [address] [place] [address], 68290, 03/19/2024 08:14:14 03/19/20 24 03/19/2024 CBC W/ DIFFE RENTI AL* RBC 3.59 mil/c mm 3.90 - 5.[address] [facility] ([facility]) [address] [place] [address], 75342, 03/19/2024 08:14:14 03/19/20 24 03/19/2024 CBC W/ DIFFE RENTI AL* hemoglobin 10.8 gm/dL 12.0 - 16.[address] [facility] ([facility]) [address] [place] [address], 70330, 03/19/2024 08:14:14 03/19/20 24 03/19/2024 CBC W/ DIFFE RENTI AL* hematocrit 33 % 37 - [address] [facility] ([facility]) [address] [place] [address], 04401, 03/19/2024 08:14:14 03/19/20 24 03/19/2024 CBC W/ DIFFE RENTI AL* MCV 91 fL 82 - [address] [facility] ([facility]) [address] [place] [address], 26852, 03/19/2024 08:14:14 03/19/20 24 03/19/2024 CBC W/ DIFFE RENTI AL* MCH 30.1 pg 27.0 - 31.[address] [facility] ([facility]) [address] [place] [address], 55818, 03/19/2024 08:14:14 03/19/20 24 03/19/2024 CBC W/ DIFFE RENTI AL* MCHC 33.0 % 32.0 - 36.[address] [facility] ([facility]) [address] [place] [address], 98667, 03/19/2024 08:14:14 03/19/20 24 03/19/2024 CBC W/ DIFFE RENTI AL* RDW-SD 47.6 fL 39.0 - 49.[address] [facility] ([facility]) [address] [place] [address], 26041, 03/19/2024 08:14:14 03/19/20 24 03/19/2024 CBC W/ DIFFE RENTI AL* platelet count 89 TH/cm m 150 - 450 low -PREL IMINA RY-RE PORT: 03/[address] [facility] (Lab) [address] [place] [address], 77156, 03/19/2024 08:14:14 03/23/20 24 03/23/2024 BASIC METAB OLIC PANEL calcium 9.6 mg/dL 8.5-10 .1 normal Not Available [address] [place], [address] 03/23/2024 15:01:20 03/23/20 24 03/23/2024 BASIC METAB OLIC PANEL glucose 141 mg/dL 74-106 high Not Available Saray martinez [address], [address] 03/23/2024 15:01:20 03/23/20 24 03/23/2024 BASIC METAB OLIC PANEL BUN 20 mg/dL 7-18 high Not Available Saray martinez [address] [place], [address] 03/23/2024 15:01:20 03/23/20 24 03/23/2024 BASIC METAB OLIC PANEL creatinine 1.0 mg/dL 0.55-1 .02 normal Not Available [address] [place], [address] 03/23/2024 15:01:20 03/23/20 24 03/23/2024 BASIC METAB [...] young er-ag ed adult s. Not Available [address] [place], [address] 03/23/2024 15:01:20 03/23/20 24 03/23/2024 BASIC METAB OLIC PANEL sodium 140 mmol/ L 136-14 5 normal Not Available [address] [place], [address] 03/23/2024 15:01:20 03/23/20 24 03/23/2024 BASIC METAB OLIC PANEL potassium 4.4 mmol/ L 3.5-5. 1 normal Not Available [address] [place], [address] 03/23/2024 15:01:20 03/23/20 24 03/23/2024 BASIC METAB OLIC PANEL chloride 104 mmol/ L 98-107 normal Not Available [address] [place], [address] 03/23/2024 15:01:20 03/23/20 24 03/23/2024 BASIC METAB OLIC PANEL CO2 27.6 mmol/ L 21.0-3 2.0 normal Not Available [address] [place], [address] 03/23/2024 15:01:20 03/23/20 24 03/23/2024 BASIC METAB OLIC PANEL anion gap 8.4 mmol/ L 3-11 normal Not Available [address] [place], [address] 03/23/2024 15:01:20 04/16/19 25 04/17/2024 URINE CULTU RE urine culture Urine Cultu re ACTIO N ID AND SUSCE PTIBI LITY TO FOLLO W APPEA IVAN Gram Negat tyler Mathieu COLON Y COUNT Not Available [address] [place], [address] 04/17/2024 11:46:39 04/16/19 25 04/17/2024 URINE CULTU RE urine culture colon ies/m L 50,00 0 - 100,0 00 Day 1 Resul t ISOLA DILMA BELOW O:GNR (ORGA NISM ID: 1.1) - Gram negat tyler mathieu Urine Cultu re (ORGA NISM ID: 1.1) - COLON Y COUNT (ORGA NISM ID: 1.1) - 50,00 0 - 100,0 00 Not Available [address] [place], [address] 04/17/2024 11:46:39 04/16/19 25 04/18/2024 URINE CULTU RE urine culture Urine Cultu re ACTIO N ID AND SUSCE PTIBI LITY TO FOLLO W ACTIO N SUSCE PTIBI LITY TO FOLLO W APPEA IVAN Gram Negat tyler Mathieu APPEA IVAN Gram Negat tyler Mathieu COLON Y COUNT Not Available [address] [place], [address] 04/18/2024 08:26:37 04/16/1904/18/2024 URINE CULTU RE urine culture colon ies/m L 50,00 0 - 100,0 00 COLON Y COUNT 50,00 0 - 100,0 00 Day 1 Resul t ISOLA DILMA BELOW Day 2 Resul t ISOLA DILMA BELOW O:ESC COL (ORGA NISM ID: 1.1) - Esche sophia a coli Urine Cultu re (ORGA NISM ID: 1.1) - COLON Y COUNT (ORGA NISM ID: 1.1) - 50,00 0 - 100,0 00 Not Available [address] [place], [address] 04/18/2024 08:26:37 04/16/1904/19/2024 URINE CULTU RE urine culture Urine Cultu re ACTIO N ID AND SUSCE PTIBI LITY TO FOLLO W ACTIO N SUSCE PTIBI LITY TO FOLLO W APPEA IVAN Gram Negat tyler Mathieu APPEA IVAN Gram Negat tyler Mathieu APPEA IVAN Gram Negat tyler Mathieu COLON Y COUNT Not Available [address] [place], [address] 04/19/2024 07:10:55 04/16/1904/19/2024 URINE CULTU RE urine culture colon ies/m L 50,00 0 - 100,0 00 COLON Y COUNT 50,00 0 - 100,0 00 COLON Y COUNT 50,00 0 - 100,0 00 Day 1 Resul t ISOLA DILMA BELOW Day 2 Resul t ISOLA DILMA BELOW Day 3 Resul t ISOLA DILMA BELOW O:ESC COL (ORGA NISM ID: [id number]) - Esche sophia a coli Urine Cultu re (ORGA NISM ID: 1.1) - COLON Y COUNT (ORGA NISM ID: 1.1) - 50,00 0 - 100,0 00 ORGAN ISM ID: [id number] ANTIB IOTIC INTER PRETA TION HERNANDEZ STATU S Ampic illin S <=2 F Ampic illin /Sulb actam S <=2 F Cefaz richie S <=4 F Cefta zidim e S <=1 F CEFTR IAXON E S <=1 F Cipro floxa laura S <=0.2 5 F Genta micin S <=1 F Nitro furan toin S <=16 F Imipe nem S <=0.2 5 F Levof loxac in S <=0.1 2 F Tobra mycin S <=1 F Trime thopr im/Hoskins lfame thoxa zole S <=20 F Piper acill in/Ta zobac marino S <=4 F Not Available [facility] [address] [place], [address] 04/19/2024 07:10:55 04/16/19 25 04/16/2024 urina lysis , dipst ick Leukocytes Modera te Not Available [address], [address], 04/16/2024 14:28:35 04/16/19 25 04/16/2024 urina lysis , dipst ick Nitrite negati ve Not Available [address], [address], 04/16/2024 14:28:35 04/16/19 25 04/16/2024 urina lysis , dipst ick Urobilinogen .2 Not Available [address], [address], 04/16/2024 14:28:35 04/16/19 25 04/16/2024 urina lysis , dipst ick Protein Negati ve Not Available [address], [address], 04/16/2024 14:28:35 04/16/19 25 04/16/2024 urina lysis , dipst ick pH 7.0 Not Available [address], [address], 04/16/2024 14:28:35 04/16/19 25 04/16/2024 urina lysis , dipst ick Blood Large Not Available [address], [address], 04/16/2024 14:28:35 04/16/19 25 04/16/2024 urina lysis , dipst ick Specific [place] 1.000 Not Available [address], [address], 04/16/2024 14:28:35 04/16/19 25 04/16/2024 urina lysis , dipst ick Ketone Trace Not Available [address], [address], 04/16/2024 14:28:35 04/16/19 25 04/16/2024 urina lysis , dipst ick Bilirubin Negati ve Not Available [address], [address], 04/16/2024 14:28:35 04/16/19 25 04/16/2024 urina lysis , dipst ick Glucose Negati ve Not Available [address], [address], 04/16/2024 14:28:35 04/16/19 25 04/16/2024 urina lysis , dipst ick Appearance Slight ly Cloudy Not Available [address], [address], 04/16/2024 14:28:35 04/16/19 25 04/16/2024 urina lysis , dipst ick Color Pale Yellow Not Available [address], [address], 04/16/2024 14:28:35 04/20/1904/20/2024 C DIFF PCR C diff PCR Positi ve negati ve abnormal PATIE NT IS AN OUTPA TIENT 04/20 by LAB.I MARGARETH Not Available [address] [place], [address] 04/20/2024 21:44:05 04/20/19 25 04/21/2024 FECAL BACTE RIAL PATHO GENS PCR salmonella PCR Negati ve negati ve Not Available [address] [place], [address] 04/22/2024 08:27:45 04/20/19 25 04/21/2024 FECAL BACTE RIAL PATHO GENS PCR shigella/ent eroinvasive ecoli Negati ve negati ve Not Available [address] [place], [address] 04/22/2024 08:27:45 04/20/19 25 04/21/2024 FECAL BACTE RIAL PATHO GENS PCR campylobacte r PCR Negati ve negati ve Not Available [address] [place], [address] 04/22/2024 08:27:45 04/20/19 25 04/21/2024 FECAL BACTE RIAL PATHO GENS PCR shiga toxin PCR Negati ve negati ve Test perfo rmed or refer red by [facility] [address], [place] [address] Not Available [address] [place], [address] 04/22/2024 08:27:45 05/18/19 25 05/18/2024 urina lysis , dipst ick Leukocytes Modera te Not Available [facility] [address] [facility], [place], [address], 05/18/2024 16:30:27 05/18/19 25 05/18/2024 urina lysis , dipst ick Nitrite negati ve Not Available [address], [address], 05/18/2024 16:30:27 05/18/19 25 05/18/2024 urina lysis , dipst ick Urobilinogen .2 Not Available [address], [address], 05/18/2024 16:30:27 05/18/19 25 05/18/2024 urina lysis , dipst ick Protein Trace Not Available [address], [address], 05/18/2024 16:30:27 05/18/19 25 05/18/2024 urina lysis , dipst ick pH 7.5 Not Available [address], [address], 05/18/2024 16:30:27 05/18/19 25 05/18/2024 urina lysis , dipst ick Blood Large Not Available [address], [address], 05/18/2024 16:30:27 05/18/19 25 05/18/2024 urina lysis , dipst ick Specific [place] 1.010 Not Available [address], [address], 05/18/2024 16:30:27 05/18/19 25 05/18/2024 urina lysis , dipst ick Ketone Negati ve Not Available [address], [address], 05/18/2024 16:30:27 05/18/19 25 05/18/2024 urina lysis , dipst ick Bilirubin Negati ve Not Available [address], [address], 05/18/2024 16:30:27 05/18/19 25 05/18/2024 urina lysis , dipst ick Glucose 2000+ Not Available [address], [address], 05/18/2024 16:30:27 05/18/19 25 05/18/2024 urina lysis , dipst ick Appearance Slight ly Cloudy Not Available [address], [address], 05/18/2024 16:30:27 05/18/19 25 05/18/2024 urina lysis , dipst ick Color Yellow Not Available [address], [address], 05/18/2024 16:30:27 03/17/20 24 03/17/2024 xr chest 2V Pa and later al [facility] RAD[facility]OL OGY [place] [address] RADIOL OGY TRANSC RIPTIO N REPORT _ Patien t Name: CRISTEL SEGUNDO MRN: Sex: : Age: [id number] F [id number] Accoun t: Access ion: Admit: StayTy pe: [id number] 2023 Aylin Castellon d: Order ID: Submit nate: David aly Provid er: 2023 16:03 [id number] Zoey MOSLEY nate: Techno logist : Result [...] t. If you are a health care [facility] and have any questi ons regard ing this report , please contac t the number below. For patien ts who have questi ons please contac t the health care profes sional that reques nate your imagin g first. Electr onical ly signed by: Kimberly Keith MD Radiol sohan ji ([phone]), at 2023 4:[address] [facility] (Lab) [address] [place] [address], [address], 03/17/2024 16:35:27 03/17/20 24 03/17/2024 EKG order yony ng 12 lead [facility] [place] [address] EKG TRANSC RIPTIO N REPORT _ Accoun t: Access ion: Admit: StayTy pe: [id number] 2023 E/R Observ ation: Order ID: Submit nate: David Klein er: 2023 16:34 [id number] KURT KIN AYALA _ [place] [id number] [facility] Test Date: 2023-04 Pat Name: KAYLEE Khan Depart ment: Julio César bermudez ID: [id number] Room: Gender : Yue Reardon perri: jr : 1941-0 06-22 Reques nate By: FRANC Yanes Order Number : [id number] Kelby mcdaniels MD: Jung Corona Measur ements Interv als [place] Rate: 109 P: 57 VA: 182 QRS: -22 QRSD: 92 T: 0 QT: 328 QTc: 441 Interp retive Statem ents Sinus tachyc ardia Poor R wave progre ssion, likely due to lead placem ent Compar ed to ECG 2023 09:24: 01 Sinus rhythm no longer presen t Electr onical ly Signed On 2023 19:33: 53 EST by Jung Corona INTERFACE [facility] (Lab) [address] [place], [address], 03/17/2024 19:35:41 05/07/19 25 11/06/2016 DEXA No observ ation record ed. [email or web address] [facility] - Radiology [address] [place], [address], 05/07/2024 10:15:11 Result Notes None recorded. Problems Name Problem SNOMED Code Status Onset Date Resolution Date Notes Provider Name and Address Organization Details Recorded Time Acute lower respirat ory tract infectio n [id number] Completed 202303/27/[address], [facility] [address] , [facility] 14:21:53 Acute confusio n 918479116 Completed 202303/27/[address], [facility] [address] , [facility] 14:21:53 Chronic cough 41025436 Active [address], [facility] [address] , [facility] 14:11:35 Dysuria 30660505 Active 2024 Problem Code: R30.0; Problem Code Type: ICD-10; MD Livan RODRIGUEZ Dr, [facility] [address] , [facility] 14:40:58 Dry lips 371579733 Active [address], [facility] [address] , [facility] 15:15:20 Loose stool 669380448 Active [address], [facility] [address] , [facility] 15:16:13 Encopres is 904764768 Active [address], [facility] [address] , [facility] 15:16:22 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 976314202 Active [address], [address] 5 15:16:36 Clostrid ium difficil e colitis 001721383 Active [address], [address] 5 13:21:24 Pruritic rash 68851286 Active [address], [address] 5 13:21:36 Dizzines s 269551365 Active [address], [address] 5 13:23:52 Essentia l hyperten ty 90896097 Completed 201305/13/2023 Problem Code: I10; Problem Code Type: ICD-10; MD Livan RODRIGUEZ Dr, [address] 4 13:45:04 Migraine 23654806 Active 2013 Gail Puckett [facility] 4 12:45:27 History of disorder of digestiv e system 237591830 Completed 201305/13/2023 Problem Code: Z87.19; Problem Code Type: ICD-10; MD Livan RODRIGUEZ Dr, [address] 4 13:45:04 Restless legs 21228221 Active 2013 Gail rodriguez, [facility] 4 12:48:18 Disorder of nervous system due to type 2 diabetes mellitus 982100814 Completed 201305/13/2023 04/27/19 20 - Comments only - Lianasunshine FreitasBoles - - Increase metformi n to 1000 [...] Code Type: ICD-10; MD Livan ROD[address], [place], [address] , [facility] 4 13:45:04 Allergic rhinitis 64499688 Completed 201305/13/2023 Problem Code: J30.9; Problem Code Type: ICD-10; MD Livan RODR[address] Dr, [place], [address] , [facility] 4 13:45:04 Mixed hyperlip idemia 834439494 Active 2013 [facility] 4 12:45:48 Neuropat hy due to type 2 diabetes mellitus 30012215171 9106 Active 2013 [facility] 4 12:46:16 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 Boykin, chemo instilla tion, straight caths [facility] 4 12:43:10 History of nutritio nal disorder 937636834 Completed 201405/13/[address], [place], [address] , [facility] 4 13:45:04 Irritabl e bowel syndrome 34409032 Active 2014 [facility], [facility] 4 12:45:06 Eczema 03423694 Active 2014 [facility] 4 12:38:10 Hernia of abdomina l cavity 84133044 Active 2015 [facility] 4 12:41:15 Cirrhosi s of liver 84445926 Completed 201505/13/2023 09/22/19 20 - Comments only - Nat Bryant M.D. - Has gained some weight, and possibly has ascites, although I have never examined her before. Follow-u p as planned tomorrow for imaging, labs, and speciali [facility] at [facility]. Problem Code: K74.69; Problem Code Type: ICD-10; MD Livan RODR[address]UEZ Dr, [place], [address] , [facility] 4 13:45:04 History of urinary tract infectio n 62979620600 07 Completed 201505/13/2023 08/03/19 16 - Comments [...] Type: ICD-10; MD Livan RODRIGUEZ Dr, [address] 4 13:45:04 Screenin g for malignan t neoplasm of breast Completed 201505/13/2023 Problem Code: Z12.39; Problem Code Type: ICD-10; MD Livan RODRIGUEZ Dr, [address] 4 13:45:04 Candidia sis of vagina 73673732 Completed 201505/13/2023 Problem Code: B37.3; Problem Code Type: ICD-10; MD Livan RODRIGUEZ Dr, [address] 4 13:45:04 Portal hyperten ty 24307129 Active 2015 no ascites or encephal opathy, EGD 2015 [facility]gastric ulcer) [facility] 4 12:47:45 Genitour inary symptoms 974495664 Completed 201504/17/2016 Problem Code: R39.89; Problem Code Type: ICD-10; Not Available [facility] 3 04:10:10 Screenin g for malignan t neoplasm of colon Completed 201605/13/2023 Problem Code: Z12.11; Problem Code Type: ICD-10; MD Livan RODRIGUEZ Dr, [address] 4 13:45:04 Pneumoni a 634389040 Completed 201602/15/2017 02/12/20 17 - Improved - 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 - s/p tx with azithrom ycin pt signific antly improved RTC if sx worsen/p ersist Problem Code: J18.9; Problem Code Type: ICD-10; MD Livan RODRIGUEZ Dr, [address] 4 14:21:53 Orthosta tic hypotens ion 82191873 Active 2017 [facility] 4 12:46:41 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 47692706 Active 2018 small endoscop y 2019 [facility] repeat one year [facility] 4 12:39:42 Hepatic failure 00259881 Completed 201805/13/2023 Problem Code: K72.90; Problem Code Type: ICD-10; MD Livan RODRIGUEZ Dr, [address] 4 13:45:04 Acute upper respirat ory infectio n 74021622 Completed 201811/08/2018 Problem Code: J06.9; Problem Code Type: ICD-10; MD Livan RODRIGUEZ Dr, [address] 4 13:45:04 Proteinu vinod 69570094 Completed 201805/13/2023 Problem Code: R80.9; Problem Code Type: ICD-10; MD Livan RODRIGUEZ Dr, [address] 4 13:45:04 Hyperlip idemia 85492171 Active 2018 [facility] 4 12:44:49 Gastroes ophageal reflux disease without esophagi tis 562919360 Active 2019 [facility] 4 12:39:54 Urinary tract infectio us disease 14485111 Completed 201909/29/2019 09/22/19 20 - Comments only - Nat Bryant M.D. - UA positive for leuks, blood, nitrites . Unfortun murrayly, was not able to provide large enough sample to send for culture. Urine culture from recent hospital ization showed pansensi tive E. coli, so we will treat as they did with cephalex in. Instruct ed her to call with worsenin g or persiste nce. Problem Code: N39.0; Problem Code Type: ICD-10; Not Available [facility] 3 04:10:12 Nervous system and sense organ diseases 699712077 Completed 202005/13/[address], [facility] [address] , [facility] 4 13:45:04 Fall on or from stairs or steps Completed 202005/27/2020 Problem Code: W10.9xxA ; Problem Code Type: ICD-10; Not Available [facility] 3 04:10:12 Knee joint effusion 100695939 Completed 202006/06/2020 Problem Code: M25.469; Problem Code Type: ICD-10; Not Available [facility] 3 04:10:13 Low back pain 123123843 Completed 202006/20/2020 Problem Code: M54.5; Problem Code Type: ICD-10; INDIRA YEN Dr, [facility] [address] , [facility] 4 14:31:55 Dysuria 03729378 Completed 202009/03/2020 Problem Code: R30.0; Problem Code Type: ICD-10; MD Livan RODRIGUEZ Dr, [facility] [address] [place] [address] 5 14:40:58 Psychoph ysiologi c insomnia 840173932 Active 2020 Insomnia , chronic Gail Lavern [facility] 4 12:48:07 Dizzines s and giddines s 883584115 Completed 202010/31/2020 Problem Code: R42; Problem Code Type: ICD-10; Not Available [facility] 3 04:10:14 Atrophic vaginiti s 18103059 [facility] 4 12:37:19 Urinary tract infectio us disease 36290066 Completed 202003/03/2021 Problem Code: N39.0; Problem Code Type: ICD-10; Not Available [facility] 3 04:10:14 Disorder of hematopo ietic structur e 187685380 Completed 202105/13/2023 Problem Code: D75.89; Problem Code Type: ICD-10; AYSHA BARILLAS MD [address], [address] 4 13:45:04 Tension- type headache 409374927 Completed 202105/13/2023 Problem Code: G44.209; Problem Code Type: ICD-10; AYSHA BARILLAS MD [address], [address] 4 13:45:04 Acute conjunct ivitis of left eye 98081919069 9105 Completed 202112/19/2021 12/13/19 22 - Comments only - Nat Bryant M.D. - Likely bacteria l. Rx sent for e-mycin ointment . Call for reevalua tion if worsenin g, or no better w/in 48 hours. Problem Code: H10.32; Problem Code Type: ICD-10; Not Available [facility] 3 04:10:15 Cerebrov ascular disease 34900707 Active 2021 Gailmami Puckett [facility] 4 12:37:49 Urinary tract infectio us disease 56901874 Completed 202208/28/2022 Problem Code: N39.0; Problem Code Type: ICD-10; Not Available [facility] 3 04:10:15 Pneumoni a 405338826 Completed 202211/08/2022 10/30/19 23 - Improved - [...] Code Type: ICD-10; MD Livan R[address]Z Dr, [place], [address] , [facility] 4 14:21:53 Edema 803413318 Active 2022 Peripher al edema [facility] 4 12:38:42 Castillo' s esophagu s 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 Active 2022 [facility] 4 12:37:33 Candidia sis of skin 25862580 Completed 201810/23/2022 Problem Code: B37.2; Problem Code Type: ICD-10; Not Available [facility] 3 04:10:16 Acute atopic conjunct ivitis 96705530 Completed 201804/21/2019 Problem Code: H10.10; Problem Code Type: ICD-10; Not Available [facility] 3 04:10:16 Constipa tion 11799874 Completed 201301/02/2023 Problem Code: K59.00; Problem Code Type: ICD-10; Not Available [facility] 3 04:10:16 Cough 21409376 Completed 202201/02/2023 Problem Code: R05.8; Problem Code Type: ICD-10; MD Livan RODR[address]Z Dr, [place], [address] , [facility]. 4 14:21:53 Hyperten sive disorder 77775313 Completed 201301/02/2023 Not Available [facility] 3 04:10:17 Neoplasm of urinary bladder 409294251 Completed 201301/02/2023 Problem Code: D49.4; Problem Code Type: ICD-10; Not Available [facility] 3 04:10:17 Enthesop athy 01196503 Completed 201812/26/2020 Problem Code: M77.9; Problem Code Type: ICD-10; Not Available [facility] 3 04:10:17 Hypercal cemia 93203690 Completed 201401/02/2023 Not Available [facility] 3 04:10:18 Lung field abnormal 506819448 Completed 201607/29/2017 Problem Code: R91.8; Problem Code Type: ICD-10; Not Available [facility] 3 04:10:18 Insomnia 080702463 Completed 201906/06/2021 Problem Code: F51.09; Problem Code Type: ICD-10; Not Available [facility] 3 04:10:18 Disorder of lung 25438464 Completed 201710/23/2022 Problem Code: J98.4; Problem Code Type: ICD-10; Not Available [facility] 3 04:10:18 Type 2 diabetes mellitus without complica tion 949006923 Completed 201301/02/2023 Problem Code: E11.9; Problem Code Type: ICD-10; IN[address]A [address], [place], [address] , [facility]. 4 15:17:00 Pain of left shoulder joint 61297652694 091423 Completed 201406/06/2021 Problem Code: M25.512; Problem Code Type: ICD-10; Not Available [facility] 3 04:10:19 Screenin g for osteopor osis Completed 201602/11/2017 Problem Code: Z13.820; Problem Code Type: ICD-10; Not Available [facility] 3 04:10:19 Inflamed seborrhe ic keratosi s 590990721 Completed 201910/23/2022 Problem Code: L82.0; Problem Code Type: ICD-10; Not Available [facility] 3 04:10:20 Disorder of brain 85740888 Completed 202103/05/2022 Problem Code: G93.40; Problem Code Type: ICD-10; Not Available [facility] 3 04:10:20 Other idiopath ic peripher al neuropat hy NOS Completed 201301/02/2023 Not Available [facility] 3 04:10:20 Obesity 281454881 Completed 201301/02/2023 Not Available [facility] 3 04:10:20 Fatigue 17550488 Completed 201810/27/2018 Problem Code: R53.83; Problem Code Type: ICD-10; Not Available [facility] 3 04:10:21 Genitour inary symptoms 905046742 Completed 201904/04/2020 Problem Code: R39.9; Problem Code Type: ICD-10; Not Available [facility] 3 04:10:21 Benign paroxysm al position al vertigo 498201742 Completed 202001/02/2023 Problem Code: H81.10; Problem Code Type: ICD-10; Not Available [facility] 3 04:10:22 Disorder of skin and/or subcutan eous tissue 78448628 Completed 201904/04/2020 Problem Code: L98.9; Problem Code Type: ICD-10; Not Available [facility] 3 04:10:22 Osteophy te of bone 64538861452 9100 Completed 201906/28/2020 Problem Code: M25.776; Problem Code Type: ICD-10; Not Available [facility] 3 04:10:22 Gastric ulcer 633651124 Completed 201501/02/2023 Problem Code: K25.9; Problem Code Type: ICD-10; Not Available [facility] 3 04:10:22 Right side sciatica 79893393600 9101 Completed 201804/21/2019 Problem Code: M54.31; Problem Code Type: ICD-10; Not Available [facility] 3 04:10:23 Candidia sis 59922898 Completed 201308/22/2015 Problem Code: B37.9; Problem Code Type: ICD-10; Not Available [facility] 3 04:10:23 Steatosi s of liver 517517831 Completed 201302/10/2016 Problem Code: K76.0; Problem Code Type: ICD-10; Not Available [facility] 3 04:10:23 Cough 34124355 Completed 201912/26/2020 Problem Code: R05; Problem Code Type: ICD-10; AYSHA BARILLAS MD [address], [place], [address] [facility] 4 14:21:53 Xerostom ia 73480967 Completed 202006/06/2021 Problem Code: R68.2; Problem Code Type: ICD-10; [facility] 4 12:49:03 Candidal vulvovag initis 66693336 Completed 201301/02/2023 Problem Code: 112.1; Problem Code Type: ICD-9; Not Available [facility] 3 04:10:25 Intestin al disaccha ridase deficien cy 57376063 Completed 201301/02/2023 Problem Code: 271.3; Problem Code Type: ICD-9; Not Available [facility] 3 04:10:25 Acute bronchit is 74255567 Completed 201912/26/2020 Problem Code: J20.9; Problem Code Type: ICD-10; Not Available [facility] 3 04:10:26 Peripher al nerve disease 440359388 Completed 201301/02/2023 Not Available [facility] 3 04:10:26 Acute upper respirat ory infectio n 53995138 Completed 202205/13/2023 Problem Code: J06.9; Problem Code Type: ICD-10; MD Livan RODRIGUEZ Dr, [facility] [address] , [facility] 4 13:45:04 Diastoli c heart failure 806925103 Active 2022 echo 03/[address], [address] 3 11:17:46 Chest pain 55847159 Completed 202205/13/2023 Problem Code: R07.89; Problem Code Type: ICD-10; MD Livan RODRIGUEZ Dr, [address] 4 13:45:03 Aortic stenosis , non-rheu matic 077144932 Active 2022 mild 03/2023 echo MD Livan R[address]UEZ Dr, [address] 4 06:52:21 Senile hyperker atosis 607059568 Completed 202205/13/2023 Problem Code: L82.1; Problem Code Type: ICD-10; MD Livan RODR[address]UEZ Dr, [facility] [address] [place] [address] 4 13:45:03 Melanocy tic nevus 035305414 Completed 202205/13/2023 Problem Code: D22.9; Problem Code Type: ICD-10; MD Livan RODRIGUEZ Dr, [facility] [address] [place] [address] 4 13:45:04 Incoordi [facility] 894792856 Completed 202205/13/2023 01/31/20 23 - Comments only - Aysha Barillas MD - neuro exam not c/w CVA; will eval further at next visit. Problem Code: R27.9; Problem Code Type: ICD-10; AYSHA BARILLAS MD [address], [place], [address] , [facility] 4 13:45:03 Dyspnea 164746226 Completed 202205/13/2023 Problem Code: R06.09; Problem Code Type: ICD-10; MD Livan [address], [place], [address] , [facility] 4 13:45:03 Chronic diarrhea 473384029 Active 2023 [facility] 4 12:37:57 Drug-ind uced xerostom ia 263261810 Active [address], [place], [address] , [facility] 4 13:38:38 Microalb uminuric diabetic nephropa thy 996163601 Active 2023 [facility] 4 12:45:11 Dyspnea on exertion 35931451 Active 2023 [facility], [facility] 4 12:37:57 Angular cheiliti s 774463531 Active 2023 [facility] 4 12:36:56 Xerostom ia 85090834 Active 2023 [facility] 4 12:49:03 History of adenomat ous polyp of colon 771210014 Active 2020 [facility] 4 12:43:44 Sialoade nitis 56150603 Completed 202308/09/[address], [facility] [address] [place] [address] 4 16:48:36 Low back pain 234840006 Active 2023 Problem Code: M54.5; Problem Code Type: ICD-10; AMADEO VICTORINO, SENIOR UX DEVELOPER [address], [address] 14:31:55 Chest pain on exertion 44499122 Active [address], [address] 12:24:41 Always hungry 176697450 Active [address], [address] 16:38:32 Altered bowel function 50380525 Active [address], [address] 16:38:44 Atypical chest pain 805155843 Active 2023 DORIS JONES MA null, [facility] 07:31:04 Acquired thromboc ytopenia 88604967 Active [address], [facility] [address] [place] [address] 4 09:56:08 Actinic keratosi s 426812247 Active [address], [facility] [address] [place] [address] 13:34:57 Nodule of lung 229047241 Active 2023 probable lipoma by PET. (benign) MD [address]ivan [address], [place], [address] , [facility]. 4 06:49:28 Minimal cognitiv e impairme nt 888799887 Active [address], [place], [address] , [facility] 4 15:05:52 New daily persiste nt headache 10385005537 9105 Active [address], [place], [address] [place] [address] , [facility] 4 16:29:33 Lichen sclerosu s of vulva 268195829 Active [address], [address] [address] 4 15:22:25 Milia 966501888 Active [address], [place] [address] , [facility] 4 15:51:39 Obstruct tyler sleep apnea syndrome 39381940 Active 2023 DORIS JONES MA null, [facility]. 4 09:39:29 Atherosc lerosis Active 2023 DORIS JONES MA null, [facility]. 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 MD Livan ROD[address]UE[address], [place], [address] , [facility]. 4 06:56:02 Vulvitis 19530983 Active [address], [facility] [address] , [facility] 4 13:20:01 Thromboc ytopenic disorder 475663648 Active [address], [place] [address] , [facility] 4 13:23:28 Decompen sated cirrhosi s of liver 112938909 Active [address], [place] [address] , [facility] 4 14:23:47 Type 2 diabetes mellitus without complica tion 169041679 Active 2023 Problem Code: E11.9; Problem Code Type: ICD-10; INDIRA WATSON Dr, [place] [address] , [facility] 4 15:17:00 Coronary arterios clerosis 60131067 Active 2023 DORIS JONES MA null, [facility] 4 12:31:32 Hyperpig mentatio n of skin 65260084 Active [address], [place] [address] , [facility] 15:19:42 Pneumoni a 165988545 Completed 202303/27/2024 10/30/19 23 - Improved - [...] Code Type: ICD-10; MD Livan RODRIGUEZ Dr, [facility] [address] , [facility] 4 14:21:53 Cough 40776525 Completed 202303/27/2024 Problem Code: R05.8; Problem Code Type: ICD-10; MD Livan R[address], [place], [address] , [facility] 4 14:21:53 Notes:Some problems listed i n Document: #[id number] could not be added to this patient's chart. Please review this document and add these problems to the patient's chart manually as needed. Problem Notes None recorded. Procedures Surgical History Date Name Laterality Status Provider Name and Address Organization Details Recorded Time 4 Cryosurgery Multiple Actinic Keratoses completed MD Livan R[address], [place], [address], [facility] 03/06/2024 11:24:31 4 Cryosurgery Warts/Skin Tags completed MD Livan [address], [place], [address], [facility] 10/18/2023 15:47:48 4 Cryosurgery Warts/Skin Tags completed MD Livan R[address]UE[address], [place], [address], [facility] 10/07/2023 13:34:27 Imaging Results Imaging Date Name Status LastModified by Organiz ation Details LastModified Time 03/17/2024 xr chest 2V Pa and lateral completed [facility] (Lab) [address] [place], [address], 03/17/2024 16:35:27 03/17/2024 EKG order tracing 12 lead completed [facility] (Lab) [address] [place], [address], 03/17/2024 19:35:41 11/06/2016 DEXA completed [email or web address] l - Radiology [address] [place] [address], [address], 05/07/2024 10:15:11 Procedure Notes None recorded. Medical Equipment None Reported. Allergies Allergen ID Allergen Name Allergen Category Reaction Reaction Severity Criticality Documentation Date Start Date Code Code System Note Provider Name and Address Organization Details Recorded Time 97199 erythromy laura medicatio n other moderate Not available 02/15/20232013 4053 RxNorm stoma ch pain [facility] 12:53:11 04332 Bactrim medicatio n itching moderate Not available 08/01/20232013 80633 9 RxNorm itchy skin [facility] 12:51:33 60496 codeine medicatio n itching moderate Not available 08/01/20232013 2670 RxNorm itchy , paran oid [facility] 12:52:07 35862 Demerol medicatio n other moderate Not available 08/01/20232013 75635 1 RxNorm can' t sleep [facility] 12:52:55 17604 simvastat in medicatio n nausea moderate Not available 08/01/20232013 68041 RxNorm (ALLS TATIN S) [facility] 12:53:40 68843 Trulicity medicatio n vomiting moderate low 09/25/2023 72032 96 RxNorm AYSHA BARILLAS MD [address], [place], [address] [place] [address] 12:57:22 Medications Name Sig Start Date Stop Date Status Note LastModified by Organization Details LastModified Time clotrimaz ole 10 mg mark Dissolve 1 lozenge in mouth three times a day for 5 days 06/25 completed Not Available Not Available Not Available nystatin 100,000 unit/mL oral suspensio n 5 ml by mouth four times a day Swish and hold in mouth for 30 to 60 seconds, then swallow. active Not Available Not Available No t Available Colace 100 mg capsule 1 qd [...] by oral route. 03/19 completed [facility] admissio n for hypokale morro Not Available Not Available Not Available Engerix-B (Hepatiti s B) Vaccine 20 mcg/mL intramusc ular syringe Give 1 month after Twinrix 12/28 completed Not Available Not Available Not Available omeprazol e 40 mg capsule,d elayed release Take 1 capsule by mouth once a day active Not Available Not Available No t Available amitripty line 50 mg tablet TAKE 1 TABLET BY MOUTH EVERY NIGHT 08/26 completed Not Available Not Available Not Available triamcino lone acetonide 0.1 % topical cream Apply 1 a small amount to affected area twice a day 08/28 completed Not Available Not Available Not Available vancomyci n 125 mg capsule Take 1 capsule 4 times a day by oral route for 14 days, for c diff colitis. 05/18 completed Not Available Not Available Not Available Macrobid 100 mg capsule Take 1 capsule by mouth twice a day 02/28 completed Not Available Not Available Not Available pramipexo le 0.5 mg tablet TAKE ONE TABLET BY MOUTH EVERY DAY IN THE EVENING, FOR RESTLESS LEG SYNDROME active Not Available Not Available No t Available omeprazol e 10 mg capsule,d elayed release once a day 12/[address] Wallis, [facility], after August 2022 OV Not Available Not Available Not Available gabapenti n 800 mg tablet Take 1 tablet by mouth three times a day 2019 active Not Available Not Available Not Avai lable [employer] Ultra Test strips USE 1 STRIP VIA [...] gauge x Use 1 needle subcutan eously daily 2024 active Not Available Not Available Not Avai lable Probiotic 10 billion cell capsule 3 tablet once a day 03/18 completed Not Available Not Available Not Available Probiotic 3 tabs daily 2013 active Not Available Not Available Not Avai lable Jessica Allergy 180 mg tablet 1 tab daily 08/02 completed Not Available Not Available Not Available fidaxomic in 200 mg tablet Take 1 tablet twice a day by oral route for 10 days. 05/18 completed Not Available Not Available Not Available red yeast rice 600 mg tablet 2CAP daily 2013 active Not Available Not Available Not Avai lable Victoza 3-Jl 0.6 mg/0.1 mL (18 mg/3 mL) subcutane ous pen injector Inject 0.6mg once daily subcutan eously for 2 weeks. Then increase to 1.2mg once daily for 4 weeks. Then may increase to 1.8mg once daily. 2024 active Pt states taking 1.8mg Not Available Not Available Not Available Fioricet [...] Relief 50 mcg/actua tion nasal spray,moraima pension [place] 1 spray into both nostrils once a [...] Updated DateTime 4 154.94 cm 26.5 kg/m2 61144.9 3 g 97.6 [degF] 97 % 97 % 83 /min 120 mm[Hg] 58 mm[Hg] ABDIRAHMAN MURRY RN [facility] 4 14:13:12 Date Recorded Body height Body mass index (BMI) Body weight Body temperature Oxygen saturation Oxygen saturation in Arterial blood by Pulse oximetry Heart rate Systolic blood pressure Diastolic blood pressure Provider Name and Address Organization Details Last Updated DateTime 5 154.94 cm 26.5 kg/m2 08938.9 3 g 97.8 [degF] 98 % 98 % 90 /min 132 mm[Hg] 60 mm[Hg] ABDIRAHMAN MURRY RN [facility] 5 13:43:54 Date Recorded Body height Body temperature Oxygen saturation Oxygen saturation in Arterial blood by Pulse oximetry Heart rate Systolic blood pressure Diastolic blood pressure Provider Name and Address Organization Details Last Updated DateTime 5 154.94 cm 98 [degF] 97 % 97 % 86 /min 136 mm[Hg] 64 mm[Hg] DORIS JONES MA [facility] 5 16:02:21 Social History Question Answer Notes LastModified by Organizat ion Details LastModified Time Tobacco Smoking Status Never Smoker GIOVANNA ASIF, [facility] 03/18/2023 15:57:23 Would You Say That, In General, Your Health Is Good [email or web address] Information not available 08/09/2023 How Often Does Anyone, Including Family, Physically Hurt You? Never [email or web address] Information not available 08/09/2023 How Often Does Anyone, Including Family, Insult Or Talk Down To You? Rarely [email or web address] Information no t available 08/09/2023 How Often Does Anyone, Including Family, Threaten You With Harm? Never [email or web address] Information not available 08/09/2023 How Often Does Anyone, Including Family, Scream Or Curse At You? Never [email or web address] Information not available 08/09/2023 Within The Past 12 Months, You Worried That Your Food Would Run Out Before You Got Money To Buy More. Never True [email or web address] Information n ot available 08/09/2023 Within The Past 12 Months, The Food You Bought Just Didn't Last And You Didn't Have Money To Get More. Never True [email or web address] Information not available 08/09/2023 How Hard Is It For You To Pay For The Very Basics Like Food, Housing, Medical Care, And Heating? Would You Say It Is: Somewhat Hard Information not available 08/09/2023 In The Past 12 Months, Has Lack Of Reliable Transportation Kept You From Medical Appointments, Meetings, Work Or From Getting Things Needed For Daily Living? No [email or web address] Information not available 08/09/2023 What Is Your Housing Situation Today? I Have Housing. [email or web address] Information not available 08/09/2023 How Often In The Past Year Have You Used Marijuana (including Smoking, Vaping, Dabbing, Or Edibles)? Never [email or web address] Information not available 08/09/2023 How Often In The Past Year Have You Used Prescription Medications That Were Not Prescribed To You? Never [email or web address] Information not available 08/09/2023 How Often In The Past Year Have You Taken Your Own Prescription Medication More Than The Way It Was Prescribed Or For Different Reasons Than Its Intended Purpose? Never [email or web address] Information not available 08/09/2023 How Often In The Past Year Have You Used Other Drugs (for Example, Heroin, Cocaine, Meth, Salvia, Inhalants)? Never [email or web address] Information not available 08/09/2023 Have You Ever Used IV Drugs? No [email or web address] Information not available 08/09/2023 Date Of Most Recent SBINS 08/09/2023 [email or web address] Information not available 08/09/2023 What Was The Date Of Your Most Recent Tobacco Screening? 10/18/2023 [email or web address] Information n ot available 10/18/2023 Has Tobacco Cessation Counseling Been Provided? No Information not available 10/25/2023 Do You Or Have You Ever Used Any Other Forms Of Tobacco Or Nicotine? No [email or web address] Information not available 03/18/2023 Sex: Female Functional Status None recorded. Mental Status None recorded. Family History Relationship Description Onset Age of this Age Resolved Age Notes LastModified by Organization Details LastModified Time Mother Family history of acute medical disorder [email or web address] Not available 2022 03:54:47 Notes:*Problem: Mother: d. 6 7 , cirrhosis, non ETOH Father: d. [place], acute hepatitis Sisters: x1, cirrhosis, non ETOH, [...] Influenza, high-dose, trivalent, PF 4 [facility] 16:25:43 COVID-19, mRNA, LNP-S, PF, mayito-sucrose, 30 mcg/0.3 mL 4 completed GIOVANNA ASIF [facility] 01/09/2024 16:25:43 Td (adult), 2 Lf tetanus toxoid, preservative free, adsorbed 7 completed Not Available [facility] 02/15/2023 05:29:32 Hep A-Hep B 7 completed Not Available [facility] 02/15/2023 05:29:32 Hep A-Hep B 6 completed Not Available [facility] 02/15/2023 05:29:32 Tdap 7 completed Not Available [facility] 02/15/2023 05:29:32 Pneumococcal conjugate PCV 13 7 completed Not Available [facility] 02/15/2023 05:29:32 Td(adult) unspecified formulation 6 completed Not Available [facility] 02/15/2023 05:29:32 Influenza, split virus, trivalent, preservative 6 completed Not Available [facility] 02/15/2023 05:29:32 Influenza, split virus, trivalent, preservative 5 completed Not Available [facility] 02/15/2023 05:29:32 Influenza, split virus, quadrivalent, PF 2 completed Not Available [facility] 02/15/2023 05:29:33 Influenza, split virus, quadrivalent, PF 3 completed Not Available [facility] 02/15/2023 05:29:33 Influenza, split virus, quadrivalent, preservative 7 completed Not Available [facility] 02/15/2023 05:29:33 Influenza, split virus, quadrivalent, preservative 8 completed Not Available [facility] 02/15/2023 05:29:33 Influenza, high-dose, quadrivalent, PF 1 completed Not Available [facility] 02/15/2023 05:29:33 COVID-19, mRNA, LNP-S, PF, 100 mcg/0.5mL dose or 50 mcg/0.25mL dose 1 completed Not Available [facility] 02/15/2023 05:29:33 COVID-19, mRNA, LNP-S, PF, 100 mcg/0.5mL dose or 50 mcg/0.25mL dose 1 completed Not Available [facility] 02/15/2023 05:29:33 COVID-19, mRNA, LNP-S, PF, 100 mcg/0.5mL dose or 50 mcg/0.25mL dose 2 completed Not Available [facility] 02/15/2023 05:29:33 SARS-COV-2 (COVID-19) vaccine, UNSPECIFIED 1 completed Not Available [facility] 02/15/2023 05:29:34 COVID-19, mRNA, LNP-S, bivalent, PF, 30 mcg/0.3 mL dose 3 completed Not Available [facility] 02/15/2023 05:29:34 COVID-19, mRNA, LNP-S, bivalent, PF, 30 mcg/0.3 mL dose 2 completed Not Available [facility] 02/15/2023 05:29:34 pneumococcal polysaccharide PPV23 7 completed Not Available [facility] 02/15/2023 05:29:34 pneumococcal polysaccharide PPV23 5 completed Not Available [facility] 02/15/2023 05:29:34 pneumococcal polysaccharide PPV23 1 completed Not Available [facility] 02/15/2023 05:29:34 Hep B, adult 7 completed Not Available [facility] 02/15/2023 05:29:34 influenza, unspecified formulation 8 completed Not Available [facility] 02/15/2023 05:29:34 influenza, unspecified formulation 4 completed Not Available [facility] 02/15/2023 05:29:34 influenza, unspecified formulation 9 completed Not Available [facility] 02/15/2023 05:29:35 Influenza, high-dose, quadrivalent, PF 3 completed Not Available [facility] 04/19/2023 05:31:38 COVID-19, mRNA, LNP-S, PF, mayito-sucrose, 30 mcg/0.3 mL 3 completed Not Available [facility] 04/19/2023 05:31:38 Past Encounters Encounter ID Performer Location Encounter Start Date Encounter Closed Date Diagnosis/Indication Diagnosis SNOMED-CT Code Diagnosis ICD10 Code Diagnosis Note [id number] MARY PRETTY MA [address] [address] 03/18/2023 15:41:08 03/18/2023 16:50:55 Acute upper respiratory infection 83031559 J06.9 82-year-ol d woman with a history [...] and we reviewed overnight ED precaution s. [id number] AYSHA BARILLAS MD [address] [address] 05/13/2023 12:43:04 05/13/2023 13:39:15 Diastolic heart failure 847312654 I50.30 euvolemic, BP and lipids at goal. continue current management . Decompensa nate cirrhosis of liver 221192021 K74.60 stable, no evidence of variceal bleeding, jaundice, ascites or encephalop athy. continue to monitor. Neuropathy due to type 2 diabetes mellitus 3616230279 93237 E11.40 due for eye exam, has scheduled in 2 weeks. Next A1c due in 3 months. Chronic diarrhea 4120156 09 K52.9 Of unclear etiology, metformin could certainly be contributi ng. It started prior to Victoza. Advised short hold of metformin to see if this is the culprit. Continue as needed Imodium. Known IBS may also be contributo ry. Drug-induc ed xerostomia 035863013 K11.7 Reviewed likely connection to amitriptyl ine and risks associated with this medication in her age group. Advised decrease of 50 to 25 mg, with earlier administra tion of gabapentin to help with sleep as well as neuropathy . Continue use of lozenges and/or gum. Patient reassured that there was no evidence of thrush. Restless legs 17360783 G 25.81 Continue current DA agonist. Psychophys iologic insomnia 034393446 F51.04 see above. [id number] AYSHA BARILLAS MD [address] [address] 07/12/2023 14:13:20 07/12/2023 14:46:20 Angular cheilitis 469479009 K13.0 Advised combining topical hydrocorti sone with nystatin and apply twice daily to affected skin. Reassess in 2 weeks if no significan t improvemen t. Xerostomia 05255743 R68. 2 Provided handout and reviewed conservati ve management strategies for addressing associated discomfort . [id number] AYSHA BARILLAS MD [address] [address] 08/07/2023 15:48:14 08/07/2023 16:41:31 Sialoadenitis 42116902 K11.20 Conservati ve management discussed with patient. Instructed to keep well hydrated, apply moist heat to the involved area, massage the gland the duct, and suck on tart, hard candies to promote salivary flow. Pain should be managed with low-dose of NSAIDs or Tylenol. Patient understand s and is in agreement plan. Continue to monitor and follow-up as needed. Low back pain 478892452 M54.50 Reports lower back pain for the past several days. Pain has resolved at this time. If pain returns supportive care discussed with patient including rest with gentle stretching , heat, muscle rubs. Follow-up as needed. [id number] AYSHA BARILLAS MD [address] [address] 08/09/2023 11:39:31 08/09/2023 12:32:25 Neuropathy due to type 2 diabetes mellitus 8163592324 23666 E11.40 A1c up slightly. Reviewed option of increase in Victoza versus addition of an SGLT2 inhibitor and she opted for the latter. Reviewed potential side effects and instructio ns for use. Xerostomia 28170260 R68. 2 and burning of the mouth. No evidence of abnormal lesions or sialoadeni tis.- Plan: a. Transition the patient off amitriptyl ine to reduce dry mouth symptoms. b. Prescribe trazodone 50 mg tablets as an alternativ e sleep aid, starting with one tablet and adjusting the dose as needed. Decompensa nate cirrhosis of liver 361124756 K74.60 stable, no evidence of variceal bleeding, jaundice, ascites or encephalop athy. Stable mild thrombocyt openia. Followed by [facility] hepatology . Continue to monitor. Advised hep B vaccinatio n through the pharmacy. Chest pain on exertion 24188063 R07.89 Advised follow-up with her cardiologi st to determine if PCI is indicated. Reviewed indication s for nitroglyce rin and for calling 911. Esophageal varices without bleeding 00571248 I85.00 She will transition from metoprolol to carvedilol per hepatologi st recommenda tions. Psychophys iologic insomnia 675393570 F51.04 - Plan:a. Transition the patient off amitriptyl ine to reduce dry mouth symptoms.b . Prescribe trazodone 50 mg tablets as an alternativ e sleep aid, starting with one tablet and adjusting the dose as needed. [id number] AYSHA BARILLAS MD [address] [address] 08/27/2023 13:10:54 08/27/2023 14:44:36 Xerostomia 87412037 R68.2 Burning has resolved but dry mouth sensation continues. Encouraged lowest needed trazodone dose to minimize dry mouth. Psychophys iologic insomnia 642297986 F51.04 Continue the use of trazodone as [...] Neuropathy due to type 2 diabetes mellitus 6181213951 50316 E11.40 Continue the current management with Jardiance, monitor for any symptoms of UTI or yeast infection. Continue d-mannose for UTI prophylaxi s. Benign par oxysmal positional vertigo 045262759 H81.10 Encourage the patient to continue home exercises and conservati ve strategies for vertigo management while awaiting PT appointmen t in about a month. Monitor patient's symptoms and consider alternativ e treatments or earlier PT interventi on if symptoms worsen or do not improve. [id number] AYSHA BARILLAS MD [address] [address] 09/24/2023 15:53:59 09/24/2023 16:41:26 Always hungry 571986099 R63.8 Weight has been stable with healthy BMI but she would like to consider switching from Victoza to another GLP agonist. She recalls having poor tolerance to one of the weekly agents however. Will check with prior PCP to see if she recalls which as none are listed in her allergy list. Altered reuben wel function 76279616 R19.4 Difficult to tell if this is [...] pursue. History of adenomatous polyp of colon 490742783 Z86.010 See above. [id number] AYSHA BARILLAS MD [facility] [address] [place] [address] 10/07/2023 12:38:43 10/07/2023 13:32:27 Actinic keratosis 560428870 L57.0 L eyelid. Tx'd with liq nitrogen today. Re-eval at next visit, consider optho referral if still present. 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 Will try to get semiurgent hematology referral prior to cardiac cath given possible need for dual antiplatel et agent. Nodule of lung 935126783 R91.1 enlarging, 2 x 1.5cm; reviewed with [facility], PET-CT warranted. Pt would like done at [facility]. Chest pain on exertion 91586235 R07.89 Dr. Ortega does recommend cardiac cath. Patient would like to have this done at [facility]. We are going to try to get a hematology consult first given her chronic low platelet count. After discussion with [facility] radiology, I think evaluation of her enlarging pulmonary nodule is also important and urgent. See above. Minimal co gnitive impairment 201168086 R41.89 She does seem to have some general confusion about her medication s and has evidence of mild cognitive impairment that we may be should evaluate further at future visit. Will plan for more formal eval at future visit. New daily persistent headache 0991568868 79271 G44.52 concerning in light of suspicious and enlarging pulmonary nodule but patient does have history of migraine headaches so benign etiology also possible. No red flags in terms of wgt loss or other neuro sx. Advised monitoring for any precipitat ing factors, early utilizatio n of Tylenol and rest to help with management , and follow-up if they persist or worsen. [id number] AYSHA BARILLAS MD [address] [address] 10/18/2023 14:36:15 10/18/2023 15:35:43 Restless legs 37755911 G25.81 Reviewed safe dosing of pramipexol e which is between 0.5 and 0.75 mg, replaced lower dose tablets with 0.5 mg ones. Lichen scl erosus of vulva 292253766 N90.4 Suspected on the basis of hypopigmen [...] A&D ointment or zinc oxide cream. Milia 881697244 L72.0 Advised conservati ve management . Actinic keratosis 007 L57.0 L eyelid. re-Tx'd with liq nitrogen today. Re-eval at next visit, consider optho referral if still present. [id number] AYSHA BARILLAS MD [address] [address] 10/25/2023 10:28:44 10/25/2023 11:17:17 Lichen sclerosus of vulva 718191818 N90.4 Agree with proposed dx of lichen [...] has not yet tried. Eruption of vulva 606549 006 R21 See above [id number] AYSHA BARILLAS MD [address] [address] 11/08/2023 11:13:01 11/08/2023 12:30:59 Nodule of lung 510329460 R91.1 stable, benign by recent PET. Lichen scl erosus of vulva 900746412 N90.4 Suspected on the basis of hypopigmen [...] ointment or zinc oxide cream. Actinic keratosis 007 L57.0 did not re-assess today, will do so at next OV. Xerostomia 70914731 R68. 2 improved with Biotene and increased water intake. Thrombocyt openic disorder 487028149 D69.6 d/t cirrhosis. Awaiting heme c/s as PCI for cont'd CP needed. Restless legs 33732548 G 25.81 did not address recent increase in pamiprexol e today, will do so at next visit. Neuropathy due to type 2 diabetes mellitus [id number] 32623 E11.40 Given inability to continue GLP-1 agonist and side effects with Jardiance, advised trial of Januvia instead which is available at low cost through [facility]. Continue metformin as well. A1c today at goal, improved from August. Will reassess at next visit in 3 months. Vulvitis 14835163 N76.2 with candidal component. Suspect Jardiance may have contribute d, as well as possibly topical steroid. Advised holding jardiance, continue topical clotrimazo le, discontinu e cephalexin and clobetasol . Use mari-bottl e after each toileting for hygiene purposes. Barrier cream encouraged . F/u in 1 wk if sx not signif'ly better. [id number] AYSHA BARILLAS MD [address] [address] 12/02/2023 13:22:05 12/02/2023 14:48:40 Decompensated cirrhosis of liver 726832443 K74.60 she has generally been stable, now with 2 weeks of increased pedal and ankle edema with weight gain and faint bibasilar crackles., no evidence of variceal bleeding, jaundice, ascites or encephalop athy. Stable mild thrombocyt openia. Followed by [facility] hepatology . DDx of increased ankle swelling includes hepatorena l syndrome, CKD, CHF, or inactivity and dependence due to exertional CP. Plan:- labs for renal and hepatic fct, lytes, BNP, and CBC.- STOP metoprolol , continue carvedilol - torsemide 10 mg QD x 5 days and reassess Esophageal varices without bleeding 09062770 I85.00 Erroneousl y taking carvedilol and metoprolol together. She will transition from metoprolol to carvedilol per hepatologi st recommenda tions. Metoprolol removed from her medication list and she was given verbal and written instructio ns. Atypical chest pain 1025 45581 R07.89 Plan through [facility] cardiology for left heart cath has been on hold while waiting for hematology referral for thrombocyt openia, reviewed [facility] note today, deferring hematology visit as thrombocyt openia is explained by cirrhosis. When we call her tomorrow with her lab results we will explain this and work to coordinate care with cardiology . [id number] MAHENDRA GUZMAN, SENIOR [employer]OPER [address] [address] 12/17/2023 10:14:08 12/17/2023 10:52:15 Decompensated cirrhosis of liver 475206659 K74.60 improved, edema is gone, weight is down, and no difficulty breathingS table mild thrombocyt openia. Followed by [facility] hepatology .- continue carvedilol - continue torsemide 10 mg QD - rx sent- f/u as planned with PCP in one month to check in, review meds, and review stress test Esophageal varices without bleeding 52396404 I85.00 Was erroneousl y taking carvedilol and metoprolol together. Now only taking carvedilol Atypical chest pain 1025 35123 R07.89 [facility] 500 mg twice daily Type 2 abbi betes mellitus without complication 371690946 E11.9 Is to continue januvia, NOT TAKING SGLT2i. reviewed with pt and rx sent . Cr 0.9, GFR 63 [id number] MARY PRETTY MA [address] [address] 01/09/2024 13:35:22 01/09/2024 14:34:57 Active or passive immunization 544307809 Z23 Patient/Pa rent/Guard kt answered all the COVID screening questions with a Marissa villanueva Cirrhosis - non-alcoholic 541927714 K74.60 stable, compensate d. continue carvedilol for variceal management . Minimal co gnitive impairment 059205435 R41.89 Pursuing bubble packing of meds to assist with management . Consider slums or other formal cognitive screening at next visit. Hyperlipidemia 42489755 E78.5 continue current statin therapy. Diastolic heart failure 703204468 I50.30 euvolemic, BP and lipids at goal. continue current management . Restless legs 25449278 G 25.81 did not address recent increase in pamiprexol e today, will do so at next visit. Neuropathy due to type 2 diabetes mellitus 3004539610 90188 E11.40 continue gabapentin . A1C at goal, recheck in 3 months. Hyperpigme ntation of skin 50141530 L81.9 reassuranc e provided. No active rash evident. Atherosclerosis 57592944 I70.90 Assessment : Patient had a normal stress test, indicating no need for a catheter procedure. - Plan:a. Discontinu e ranolazine and Imdur.b. Continue carvedilol for blood pressure and angina management .c. Monitor for any changes in chest pain or symptoms. [id number] JUDITH PEÑA RN [address] [address] 02/05/2024 14:49:21 02/05/2024 15:25:56 Cough 96532515 R05.9 OTC rapid Covid test neg. Pneumonia 820847593 J18. 9 possible, on basis of LLL rales. Patient with allergy to macrolides and sulfa, will treat with doxycyclin e particular ly given prevalence of atypical pneumonia currently. Also recommende d Mucinex to help with thinning secretions . May use albuterol as needed. Reviewed indication s for re-evaluat ion. [id number] AYSHA BARILLAS MD [address] [address] 03/04/2024 13:41:07 03/04/2024 14:36:13 Neuropathy due to type 2 diabetes mellitus 4196804325 63320 E11.40 Actinic keratosis 985537 007 L57.0 L eyelid, treated with cryotherap y today, re-eval at next OV. Decompensa nate cirrhosis of liver 892458939 K74.60 Chronic diarrhea 0132344 09 K52.9 Castillo's esophagus 3029 94827 K22.70 Atypical chest pain 1025 98277 R07.89 Psychophys iologic insomnia 438548416 F51.04 Cough 58527204 R05.9 [id number] AYSHA BARILLAS MD [address] [address] 03/17/2024 13:44:52 03/17/2024 16:08:58 Acute lower respiratory tract infection 948575039 J22 Findings concerning for possible pneumonia. Advised ER evaluation . Updated Julio César provider. Her will bring her directly there. Acute confusion 87728157 0 R41.0 She was unable to give me any details and seemed more confused than usual, concerning for possible delirium. Advised ER evaluation . Her [id number] EMORY FOSTER LPN [address] [address] 03/23/2024 11:25:55 03/23/2024 11:44:16 Hypokalemia 16949769 E87.6 [id number] AYSHA BAIRLLAS MD [address] [address] 03/27/2024 13:41:08 03/27/2024 14:39:35 Esophageal varices without bleeding 72966393 I85.00 Neuropathy due to type 2 diabetes mellitus 4983188797 20692 E11.40 Mild inter mittent asthma 977925351 J45.20 History of urinary tract infection 9040823943 107 Z87.440 Minimal co gnitive impairment 672087336 R41.89 has f/u for cognitive scg with [facility] scheduled. Encouraged use of lists. Chronic diarrhea 1031309 09 K52.9 [id number] ABDIRAHMAN MURRY, RN [facility] [address] [place] [address] 04/16/2024 13:27:44 04/16/2024 14:20:03 Chronic cough 97540003 R05.3 She was unaware of diagnosis of asthma which is in chart but has used albuterol with some improvemen t in dyspnea and cough. Advised screening spirometry to evaluate for underlying etiology of her respirator y symptoms and any evidence of chronic lung disease. Dysuria 88352612 R30.0 u/a +, will send for culture, start empiric Abx with cephalexin (sulfa allergy). Will also try to track down urine culture from [facility] in March for which she was treated with cefdinir. Dry lips 876537711 K13.0 Advised conservati ve management . 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 monitor for progressio n. Type 2 abbi betes mellitus without complication 416112193 E11.9 A1c somewhat elevated late February and likely to rise further off metformin but advised continued hold of this medication given that it seemed to worsen her diarrhea. Next A1c due late May. Loose stool 626885322 R1 9.5 Improved slightly since we held metformin 3 weeks ago. Continue current management with addition of a fiber supplement . Encopresis 816551171 R15 .1 Unusual that this has appeared in the setting of improvemen t in diarrhea, advised fiber supplement to add bulk to stools, encouraged adequate fluid intake as well. Could consider referral for pelvic floor therapy if this continues. Diastolic heart failure 429747282 I50.30 She has held torsemide since [facility] in mid March, other than chronic cough no evidence of worsening CHF. Will continue to hold but advised daily weights and monitoring for worsening dyspnea or edema. [id number] EMORY FOSTER LPN [address] [address] 04/20/2024 14:02:08 04/20/2024 14:42:53 Diarrhea 20822471 R19.7 [id number] AYSHA BARILLAS MD [address] [address] 05/04/2024 12:57:41 05/04/2024 13:32:53 Neuropathy due to type 2 diabetes mellitus 2395513504 16647 E11.40 Clostridiu m difficile colitis 375601504 A04.72 She is on day 7 of 10-day vancomycin course with some improvemen t in loose stools. Will notify our office if diarrhea persists or worsens after completion of course. Pruritic rash 17442173 L 28.2 Possible mild reaction to vancomycin . Advised nonsedatin g antihistam ine in place of Benadryl if rash recurs. Offered evaluation as needed. Chronic cough 60704035 R 05.3 Reviewed normal PFTs. Will leave albuterol on her med list for now although she really has no evidence of benefit from it and I advised that she does not need to keep taking it. Dizziness 212791925 R42 [id number] Marialuisa Antonio [address] [address] 05/18/2024 15:43:41 05/18/2024 16:27:07 Dysuria 49227979 R30.0 Health Concerns Section Related Observation LastModified by Organization Detai ls LastModified Time None Recorded Concern Status LastModified by Organization Details LastModified Time None Recorded Advance Directives Directive None Recorded Payers Encounter Date Sequence Insurance Name Policy Number Policy Lucas Covered Member ID Lucas Member ID Guarantor Name 03/27/2024 1 [employer] - PPO) Milka Corbett [id number] Milka Corbett 04/16/2024 1 [employer] - [place]) Milka Corbett [id number] Milka Corbett 04/20/2024 1 [employer] - [place]) Milka Corbett [id number] Milka Corbett 05/04/2024 1 [employer] - [place]) Milka Corbett [id number] Milka Corbett Notes Date Note Type [...] that caused shaking. She was admitted to [facility] for two nights. AYSHA BARILLAS MD [address], [place], [address], [facility]. 03/27/2024 15:31:44 04/16/2024 text/html CC: f/u [...] eye issues possibly related to sun damage. TRISHA ALEXIS, [facility]. 04/16/2024 17:07:23 05/04/2024 text/html CC: f/u C. diffi cile infection, medication side effects The patient presents with a recent C. difficile infection, currently undergoing treatment with vancomycin. They report persistent loose stools occurring every 10-15 minutes, though in small amounts. The stool consistency is described as soft, resembling cornmeal, slightly darker in color, and maintaining form until flushed. The patient notes some improvement in stool consistency since starting medication. They are currently on day 7 of a 10-day course of vancomycin, taking it four times daily. The patient mentions experiencing dizziness, which may be related to medication side effects or dehydration from diarrhea. They also report a light red rash that appeared after starting vancomycin, primarily on the neck area, though it has since subsided. The patient's medical history includes C. diff infection. Current medications include vancomycin for the C. diff infection (4 times a day, 3 days left of a 10-day course), Pepcid, and Decadron for allergies. The patient was previously taking Imodium and Benadryl but was advised to discontinue these medications. Review of systems reveals gastrointestinal issues with frequent loose stools and soft stool with cornmeal-like consistency. The patient reports a resolved light red rash and possible swelling on the neck. Constitutional symptoms include dizziness. AYSHA BARILLAS MD [address], [place], [address], [facility] 05/04/2024 13:58:41 OBGyn Episode No OBEpisode recorded.
--- OUTSIDE RECORDS SUMMARY | 2024-05-18 16:53 | XMS_ITS | Continuity of Care Document ---
Author Organization [place] - [facility] Address [address] [place] [address] Care Team Providers Care Cloud Operations Engineer Name Role Phone CRYSTAL MCCORMACK [employer] Sales LANI WALLIS Branch Mechanic Assessment No assessment recorded. Plan of Treatment Reminders Order Date Submit Date Provider Last Modified By Organization Details Last Modified Time Details Appointments Acute 30 2024 04:00P M RICARDO RUTLEDGE Not available Not available Not available Follow Up 2024 11:00A M RUPAL BARILLAS Not available Not available Not available Lab C diff screen, stool, reflex PCR [address] [facility] (Registration ), [address] [place] [address] [place], [address], 04/27/2024 06:41:15 gastroin testinal pathogen s panel, PCR, stool [address] [facility] (Registration ), [address] [place] [address] [place], [address], 04/27/2024 06:41:49 Referral None recorded . Procedures None recorded . Surgeries None recorded . Imaging None recorded . Medication Orders None recorded . Patient TargetsNo targets recorded. Patient InstructionsNo instructions recorded. Reason for Referral None Reported. Results Created Date Observation Date Name Description Value Unit Range Abnormal Flag Note LastModifiedBy Organization Detail LastModifiedTime 05/07/1911/06/2016 DEXA No observ ation record ed. [email or web address] [facility] - Radiology [address] [place] [address], [address], 05/07/2024 10:15:11 Result Notes None recorded. Problems Name Problem SNOMED Code Status Onset Date Resolution Date Notes Provider Name and Address Organization Details Recorded Time Acute lower respirat ory tract infectio n 654884621 Completed 202303/27/[address], [facility] [address] , [facility] 14:21:53 Acute confusio n 526748893 Completed 202303/27/[address], [facility] [address] , [facility] 14:21:53 Chronic cough 89676981 Active [address], [facility] [address] , [facility] 14:11:35 Dysuria 17466267 Active 2024 Problem Code: R30.0; Problem Code Type: ICD-10; MD Liavn RODRIGUEZ Dr, [facility] [address] , [facility] 14:40:58 Dry lips 507738363 Active [address], [facility] [address] , [facility] 15:15:20 Loose stool 613830299 Active [address], [facility] [address] , [facility] 15:16:13 Encopres is 642520740 Active [address], [facility] [address] , [facility] 15:16:22 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 685683006 Active [address], [address] 5 15:16:36 Clostrid ium difficil e colitis 090383970 Active [address], [address] 5 13:21:24 Pruritic rash 84865539 Active [address], [address] 5 13:21:36 Dizzines s 735894798 Active [address], [address] 5 13:23:52 Essentia l hyperten ty 47701768 Completed 201305/13/2023 Problem Code: I10; Problem Code Type: ICD-10; MD Livan RODRIGUZE Dr, [address] 4 13:45:04 Migraine 80906793 Active 2013 [facility] 4 12:45:27 History of disorder of digestiv e system 396863584 Completed 201305/13/2023 Problem Code: Z87.19; Problem Code Type: ICD-10; MD Livan RODRIGUEZ Dr, [address] 4 13:45:04 Restless legs 45146999 Active 2013 Gail rodriguez, [facility] 4 12:48:18 Disorder of nervous system due to type 2 diabetes mellitus 091133612 Completed 201305/13/2023 04/27/19 20 - Comments only [...] Code Type: ICD-10; MD Livan RODRIGUEZ Dr, [place], [address] , [facility] 4 13:45:04 Allergic rhinitis 38567735 Completed 201305/13/2023 Problem Code: J30.9; Problem Code Type: ICD-10; MD Livan RODRIGUEZ Dr, [place], [address] , [facility] 4 13:45:04 Mixed hyperlip idemia 001977634 Active 2013 [facility] 4 12:45:48 Neuropat hy due to type 2 diabetes mellitus 79364639735 9106 Active 2013 [facility] 4 12:46:16 Intolera nce to lactose 657771825 Completed 201305/13/2023 Problem Code: E73.9; Problem Code Type: ICD-10; MD Livan RODRIGUEZ Dr, [place], [address] , [facility] 4 13:45:04 Heart murmur 42582160 Active [address], [place], [address] , [facility] 4 06:52:52 History of malignan t neoplasm of bladder 548887571 Active 2013, recurren ce 2008, Dr. Boykin, chemo instilla tion, straight caths [facility] 4 12:43:10 History of nutritio nal disorder 446064283 Completed 201405/13/[address], [place], [address] , [facility] 4 13:45:04 Irritabl e bowel syndrome 18294131 Active 2014 [facility], [facility] 4 12:45:06 Eczema 11509931 Active 2014 [facility] 4 12:38:10 Hernia of abdomina l cavity 96529571 Active 2015 [facility] 4 12:41:15 Cirrhosi s of liver 01203792 Completed 201505/13/2023 09/22/19 20 - Comments only - Nat Bryant M.D. - Has gained some weight, and possibly has ascites, although I have never examined her before. Follow-u p as planned tomorrow for imaging, labs, and speciali [facility] ent at [facility]. Problem Code: K74.69; Problem Code Type: ICD-10; MD Livan RODRIGUEZ Dr, [place], [address] , [facility] 4 13:45:04 History of urinary tract infectio n 83604243186 07 Completed 201505/13/2023 08/03/19 16 - Comments [...] Code Type: ICD-10; MD Livan RODRIGUEZ Dr, [address] 4 13:45:04 Screenin g for malignan t neoplasm of breast Completed 201505/13/2023 Problem Code: Z12.39; Problem Code Type: ICD-10; MD Livan RODRIGUEZ Dr, [address] 4 13:45:04 Candidia sis of vagina 87605519 Completed 201505/13/2023 Problem Code: B37.3; Problem Code Type: ICD-10; MD Livan RODRIGUEZ Dr, [address] 4 13:45:04 Portal hyperten ty 65743147 Active 2015 no ascites or encephal opathy, EGD 2015 (gastric ulcer) [facility] 4 12:47:45 Genitour inary symptoms 059164859 Completed 201504/17/2016 Problem Code: R39.89; Problem Code Type: ICD-10; Not Available [facility] 3 04:10:10 Screenin g for malignan t neoplasm of colon Completed 201605/13/2023 Problem Code: Z12.11; Problem Code Type: ICD-10; MD Livan RODRIGUEZ Dr, [address] 4 13:45:04 Pneumoni a 095311015 Completed 201602/15/2017 02/12/20 17 - Improved - 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 - s/p tx with azithrom ycin pt signific antly improved RTC if sx worsen/p ersist Problem Code: J18.9; Problem Code Type: ICD-10; MD Livan RODRIGUEZ Dr, [address] 4 14:21:53 Orthosta tic hypotens ion 05751152 Active 2017 [facility] 4 12:46:41 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 41488050 Active 2018 small endoscop y 2019 [facility] repeat one year [facility] 4 12:39:42 Hepatic failure 78042537 Completed 201805/13/2023 Problem Code: K72.90; Problem Code Type: ICD-10; MD Livan RODRIGUEZ Dr, [address] 4 13:45:04 Acute upper respirat ory infectio n 54405321 Completed 201811/08/2018 Problem Code: J06.9; Problem Code Type: ICD-10; MD Livan RODRIGUEZ Dr, [address] 4 13:45:04 Proteinu vinod 17067715 Completed 201805/13/2023 Problem Code: R80.9; Problem Code Type: ICD-10; MD Livan RODRIGUEZ Dr, [address] 4 13:45:04 Hyperlip idemia 88435003 Active 2018 [facility] 4 12:44:49 Gastroes ophageal reflux disease without esophagi tis 155956856 Active 2019 [facility] 4 12:39:54 Urinary tract infectio us disease 65563846 Completed 201909/29/2019 09/22/19 20 - Comments only [...] Code Type: ICD-10; Not Available [facility] 3 04:10:12 Nervous system and sense organ diseases 719861139 Completed 202005/13/[address], [facility] [address] , [facility] 4 13:45:04 Fall on or from stairs or steps Completed 202005/27/2020 Problem Code: W10.9xxA ; Problem Code Type: ICD-10; Not Available [facility] 3 04:10:12 Knee joint effusion 059595257 Completed 202006/06/2020 Problem Code: M25.469; Problem Code Type: ICD-10; Not Available [facility] 3 04:10:13 Low back pain 882964091 Completed 202006/20/2020 Problem Code: M54.5; Problem Code Type: ICD-10; INDIRA YEN Dr, [facility] [address] , [facility] 4 14:31:55 Dysuria 57655763 Completed 202009/03/2020 Problem Code: R30.0; Problem Code Type: ICD-10; MD Livan RODRIGUEZ Dr, [facility] [address] [place] [address] 5 14:40:58 Psychoph ysiologi c insomnia 803770185 Active 2020 Insomnia , chronic [facility] 4 12:48:07 Dizzines s and giddines s 294779043 Completed 202010/31/2020 Problem Code: R42; Problem Code Type: ICD-10; Not Available [facility] 3 04:10:14 Atrophic vaginiti s 30795148 Active 2020 [facility] 4 12:37:19 Urinary tract infectio us disease 28145277 Completed 202003/03/2021 Problem Code: N39.0; Problem Code Type: ICD-10; Not Available [facility] 3 04:10:14 Disorder of hematopo ietic structur e 569534047 Completed 202105/13/2023 Problem Code: D75.89; Problem Code Type: ICD-10; RUPAL BARILLAS MD [address], [address] 4 13:45:04 Tension- type headache 985413101 Completed 202105/13/2023 Problem Code: G44.209; Problem Code Type: ICD-10; RUPAL BARILLAS MD [address], [address] 4 13:45:04 Acute conjunct ivitis of left eye 78694825143 9105 Completed 202112/19/2021 12/13/19 22 - Comments only - Nat Bryant M.D. - Likely bacteria l. Rx sent for e-mycin ointment . Call for reevalua tion if worsenin g, or no better w/in 48 hours. Problem Code: H10.32; Problem Code Type: ICD-10; Not Available [facility] 3 04:10:15 Cerebrov ascular disease 10450297 Active 2021 [facility] 4 12:37:49 Urinary tract infectio us disease 67382638 Completed 202208/28/2022 Problem Code: N39.0; Problem Code Type: ICD-10; Not Available [facility] 3 04:10:15 Pneumoni a 852585830 Completed 202211/08/2022 10/30/19 23 - Improved - [...] Code Type: ICD-10; MD Livan RODRIGUEZ Dr, [place], [address] , [facility] 4 14:21:53 Edema 423123242 Active 2022 Peripher al edema [facility] 4 12:38:42 Castillo' s esophagu s 036771147 Active 2022 [facility] 4 12:37:33 Candidia sis of skin 85209275 Completed 201810/23/2022 Problem Code: B37.2; Problem Code Type: ICD-10; Not Available [facility] 3 04:10:16 Acute atopic conjunct ivitis 44515631 Completed 201804/21/2019 Problem Code: H10.10; Problem Code Type: ICD-10; Not Available [facility] 3 04:10:16 Constipa tion 99515524 Completed 201301/02/2023 Problem Code: K59.00; Problem Code Type: ICD-10; Not Available [facility] 3 04:10:16 Cough 12100819 Completed 202201/02/2023 Problem Code: R05.8; Problem Code Type: ICD-10; MD Livan RODRIGUEZ Dr, [place], [address] , [facility]. 4 14:21:53 Hyperten sive disorder 11348304 Completed 201301/02/2023 Not Available [facility] 3 04:10:17 Neoplasm of urinary bladder 398311651 Completed 201301/02/2023 Problem Code: D49.4; Problem Code Type: ICD-10; Not Available [facility] 3 04:10:17 Enthesop athy 66182526 Completed 201812/26/2020 Problem Code: M77.9; Problem Code Type: ICD-10; Not Available [facility] 3 04:10:17 Hypercal cemia 47068886 Completed 201401/02/2023 Not Available [facility] 3 04:10:18 Lung field abnormal 427995101 Completed 201607/29/2017 Problem Code: R91.8; Problem Code Type: ICD-10; Not Available [facility] 3 04:10:18 Insomnia 632282001 Completed 201906/06/2021 Problem Code: F51.09; Problem Code Type: ICD-10; Not Available [facility] 3 04:10:18 Disorder of lung 23087702 Completed 201710/23/2022 Problem Code: J98.4; Problem Code Type: ICD-10; Not Available [facility] 3 04:10:18 Type 2 diabetes mellitus without complica tion 963659780 Completed 201301/02/2023 Problem Code: E11.9; Problem Code Type: ICD-10; INDIRA W[address], [place], [address] , [facility]. 4 15:17:00 Pain of left shoulder joint 13262586102 411243 Completed 201406/06/2021 Problem Code: M25.512; Problem Code Type: ICD-10; Not Available [facility] 3 04:10:19 Screenin g for osteopor osis Completed 201602/11/2017 Problem Code: Z13.820; Problem Code Type: ICD-10; Not Available [facility] 3 04:10:19 Inflamed seborrhe ic keratosi s 785912015 Completed 201910/23/2022 Problem Code: L82.0; Problem Code Type: ICD-10; Not Available [facility] 3 04:10:20 Disorder of brain 54884235 Completed 202103/05/2022 Problem Code: G93.40; Problem Code Type: ICD-10; Not Available [facility] 3 04:10:20 Other idiopath ic peripher al neuropat hy NOS Completed 201301/02/2023 Not Available [facility] 3 04:10:20 Obesity 805532779 Completed 201301/02/2023 Not Available [facility] 3 04:10:20 Fatigue 68272992 Completed 201810/27/2018 Problem Code: R53.83; Problem Code Type: ICD-10; Not Available [facility] 3 04:10:21 Genitour inary symptoms 231073269 Completed 201904/04/2020 Problem Code: R39.9; Problem Code Type: ICD-10; Not Available [facility] 3 04:10:21 Benign paroxysm al position al vertigo 278118893 Completed 202001/02/2023 Problem Code: H81.10; Problem Code Type: ICD-10; Not Available [facility] 3 04:10:22 Disorder of skin and/or subcutan eous tissue 00847745 Completed 201904/04/2020 Problem Code: L98.9; Problem Code Type: ICD-10; Not Available [facility] 3 04:10:22 Osteophy te of bone 09771715633 9100 Completed 201906/28/2020 Problem Code: M25.776; Problem Code Type: ICD-10; Not Available [facility] 3 04:10:22 Gastric ulcer 393830835 Completed 201501/02/2023 Problem Code: K25.9; Problem Code Type: ICD-10; Not Available [facility] 3 04:10:22 Right side sciatica 25807602333 9101 Completed 201804/21/2019 Problem Code: M54.31; Problem Code Type: ICD-10; Not Available [facility] 3 04:10:23 Candidia sis 20768789 Completed 201308/22/2015 Problem Code: B37.9; Problem Code Type: ICD-10; Not Available [facility] 3 04:10:23 Steatosi s of liver 047888155 Completed 201302/10/2016 Problem Code: K76.0; Problem Code Type: ICD-10; Not Available [facility] 3 04:10:23 Cough 62902547 Completed 201912/26/2020 Problem Code: R05; Problem Code Type: ICD-10; RUPAL BARILLAS MD [address], [place], [address] [facility] 4 14:21:53 Xerostom ia 93872704 Completed 202006/06/2021 Problem Code: R68.2; Problem Code Type: ICD-10; [facility] 4 12:49:03 Candidal vulvovag initis 86753495 Completed 201301/02/2023 Problem Code: 112.1; Problem Code Type: ICD-9; Not Available [facility] 3 04:10:25 Intestin al disaccha ridase deficien cy 47460714 Completed 201301/02/2023 Problem Code: 271.3; Problem Code Type: ICD-9; Not Available [facility] 3 04:10:25 Acute bronchit is 37529067 Completed 201912/26/2020 Problem Code: J20.9; Problem Code Type: ICD-10; Not Available [facility] 3 04:10:26 Peripher al nerve disease 555579227 Completed 201301/02/2023 Not Available [facility] 3 04:10:26 Acute upper respirat ory infectio n 06450614 Completed 202205/13/2023 Problem Code: J06.9; Problem Code Type: ICD-10; MD Livan RODRIGUEZ Dr, [facility] [address] , [facility] 4 13:45:04 Diastoli c heart failure 997312348 Active 2022 echo 03/[address], [address] 3 11:17:46 Chest pain 04376162 Completed 202205/13/2023 Problem Code: R07.89; Problem Code Type: ICD-10; MD Livan RODRIGUEZ Dr, [address] 4 13:45:03 Aortic stenosis , non-rheu matic 324961389 Active 2022 mild 03/2023 echo MD Livan RODRIGUEZ Dr, [address] 4 06:52:21 Senile hyperker atosis 180008934 Completed 202205/13/2023 Problem Code: L82.1; Problem Code Type: ICD-10; MD Livan RODRIGUEZ Dr, [facility] [address] [place] [address] 4 13:45:03 Melanocy tic nevus 269889010 Completed 202205/13/2023 Problem Code: D22.9; Problem Code Type: ICD-10; MD Livan RODRIGUEZ Dr, [facility] [address] [place] [address] 4 13:45:04 Incoordi [facility] 774786133 Completed 202205/13/2023 01/31/20 23 - Comments only - Rupal Barillas MD - neuro exam not c/w CVA; will eval further at next visit. Problem Code: R27.9; Problem Code Type: ICD-10; RUPAL BARILLAS MD [address], [place], [address] , [facility] 4 13:45:03 Dyspnea 888679144 Completed 202205/13/2023 Problem Code: R06.09; Problem Code Type: ICD-10; MD Livan R[address]UEZ Dr, [place], [address] , [facility] 4 13:45:03 Chronic diarrhea 331195000 Active 2023 [facility] 4 12:37:57 Drug-ind uced xerostom ia 611367408 Active [address], [place], [address] , [facility] 4 13:38:38 Microalb uminuric diabetic nephropa thy 782885164 Active 2023 [facility] 4 12:45:11 Dyspnea on exertion 74516617 Active [address] [facility], [facility] 4 12:37:57 Angular cheiliti s 952184778 Active 2023 [facility] 4 12:36:56 Xerostom ia 49957191 Active 2023 [facility] 4 12:49:03 History of adenomat ous polyp of colon 018142116 Active 2020 [facility] 4 12:43:44 Sialoade nitis 53187605 Completed 202308/09/[address], [facility] [address] [place] [address] 4 16:48:36 Low back pain 356818064 Active 2023 Problem Code: M54.5; Problem Code Type: ICD-10; AMADEO VICTORINO, CLINIC MANAGER [address], [address] 14:31:55 Chest pain on exertion 22579344 Active [address], [address] 12:24:41 Always hungry 804158100 Active [address], [address] 16:38:32 Altered bowel function 20925404 Active [address], [address] 16:38:44 Atypical chest pain 187313399 Active 2023 DORIS JONES MA null, [facility] 07:31:04 Acquired thromboc ytopenia 26907915 Active [address], [facility] [address] [place] [address] 4 09:56:08 Actinic keratosi s 206149894 Active [address], [facility] [address] [place] [address] 13:34:57 Nodule of lung 326656917 Active 2023 probable lipoma by PET. (benign) MD Livan RODRIGUEZ Dr, [place], [address] , [facility]. 4 06:49:28 Minimal cognitiv e impairme nt 568971569 Active [address], [place], [address] , [facility] 4 15:05:52 New daily persiste nt headache 49974476580 9105 Active [address], [place], [address] [place] [address] , [facility] 4 16:29:33 Lichen sclerosu s of vulva 092835314 Active [address], [address] 4 15:22:25 Milia 392918591 Active [address], [place] [address] , [facility] 4 15:51:39 Obstruct keshia sleep apnea syndrome 31756049 Active 2023 DORIS JONES MA null, [facility]. 4 09:39:29 Atherosc lerosis Active 2023 DORIS JONES MA null, [facility]. 4 09:39:44 Cirrhosi s - non-alco holic 772404142 Active 2023 with esoph varices and low PLT but no ascites, jaundice or sx. MD Livan RODRIGUEZ Dr, [place], [address] , [facility]. 4 06:56:02 Vulvitis 00644576 Active [address], [facility] [address] , [facility] 4 13:20:01 Thromboc ytopenic disorder 693700926 Active [address], [place] [address] , [facility] 4 13:23:28 Decompen sated cirrhosi s of liver 398074090 Active [address], [place] [address] , [facility] 4 14:23:47 Type 2 diabetes mellitus without complica tion 277707497 Active 2023 Problem Code: E11.9; Problem Code Type: ICD-10; INDIRA W[address] Dr, [place] [address] , [facility] 4 15:17:00 Coronary arterios clerosis 38644024 Active 2023 DORIS JONES MA null, [facility] 4 12:31:32 Hyperpig mentatio n of skin 61481454 Active [address], [place] [address] , [facility] 15:19:42 Pneumoni a 270901412 Completed 202303/27/2024 10/30/19 23 - Improved - [...] Code Type: ICD-10; MD Livan RODRIGUEZ Dr, [facility] [address] , [facility] 4 14:21:53 Cough 98165631 Completed 202303/27/2024 Problem Code: R05.8; Problem Code Type: ICD-10; MD Livan RODRIGUEZ Dr, [facility] [address] , [facility] 4 14:21:53 Notes:Some problems listed i n Document: #[id number] could not be added to this patient's chart. Please review this document and add these problems to the patient's chart manually as needed. Problem Notes None recorded. Procedures Surgical History Date Name Laterality Status Provider Name and Address Organization Details Recorded Time 4 Cryosurgery Multiple Actinic Keratoses completed MD Livan RODRIGUEZ Dr, [facility] [address] 03/06/2024 11:24:31 4 Cryosurgery Warts/Skin Tags completed MD Livan RODRIGUEZ Dr, [facility] [address] [place] [address] 10/18/2023 15:47:48 4 Cryosurgery Warts/Skin Tags completed MD Livan RODRIGUEZ Dr, [facility] [address] 10/07/2023 13:34:27 Imaging Results None recorded. Procedure Notes None recorded. Medical Equipment None Reported. Allergies Allergen ID Allergen Name Allergen Category Reaction Reaction Severity Criticality Documentation Date Start Date Code Code System Note Provider Name and Address Organization Details Recorded Time 11952 erythromy laura medicatio n other moderate Not available 02/15/20232013 4053 [facility] 12:53:11 37359 Bactrim medicatio n itching moderate Not available 08/01/20232013 95794 9 RxNorm itchy skin [facility] 12:51:33 63575 codeine medicatio n itching moderate Not available 08/01/20232013 2670 RxNorm itchy , paran oid [facility] 4 12:52:07 00601 Demerol medicatio n other moderate Not available 08/01/20232013 32651 1 RxNorm can' t sleep Gail rodriguez, [facility] 4 12:52:55 51209 simvastat in medicatio n nausea moderate Not available 08/01/20232013 82666 RxNorm (ALLS TATIN S) [facility] 4 12:53:40 61954 Trulicity medicatio n vomiting moderate low 09/25/2023 86837 96 RxNorm RUPAL BARILLAS MD [address], [place], [address] [place] [address] 4 12:57:22 Medications Name Sig Start Date [...] once a day 12/[address] Wallis, [facility], after August 2022 OV [...] Relief 50 mcg/actua tion nasal spray,moraima pension [place] 1 spray into both nostrils once a [...] Status Never Smoker MARY PRETTY MA null, [place] - [facility]. 03/18/2023 15:57:23 Would You Say That, In General, Your Health Is Good [email or web address] Information not available 08/09/2023 How Often Does Anyone, Including Family, Physically Hurt You? Never [email or web address] Information not available 08/09/2023 How Often Does Anyone, Including Family, Insult Or Talk Down To You? Rarely [email or web address] Information no t available 08/09/2023 How Often Does Anyone, Including Family, Threaten You With Harm? Never [email or web address] Information not available 08/09/2023 How Often Does Anyone, Including Family, Scream Or Curse At You? Never [email or web address] Information not available 08/09/2023 Within The Past 12 Months, You Worried That Your Food Would Run Out Before You Got Money To Buy More. Never True [email or web address] Information n ot available 08/09/2023 Within The Past 12 Months, The Food You Bought Just Didn't Last And You Didn't Have Money To Get More. Never True [email or web address] Information not available 08/09/2023 How Hard Is It For You To Pay For The Very Basics Like Food, Housing, Medical Care, And Heating? Would You Say It Is: Somewhat Hard [email or web address] Information not available 08/09/2023 In The Past 12 Months, Has Lack Of Reliable Transportation Kept You From Medical Appointments, Meetings, Work Or From Getting Things Needed For Daily Living? No [email or web address] Information not available 08/09/2023 What Is Your Housing Situation Today? I Have Housing. Information not available 08/09/2023 How Often In The Past Year Have You Used Marijuana (including Smoking, Vaping, Dabbing, Or Edibles)? Never [email or web address] Information not available 08/09/2023 How Often In The Past Year Have You Used Prescription Medications That Were Not Prescribed To You? Never [email or web address] Information not available 08/09/2023 How Often In The Past Year Have You Taken Your Own Prescription Medication More Than The Way It Was Prescribed Or For Different Reasons Than Its Intended Purpose? Never [email or web address] Information not available 08/09/2023 How Often In The Past Year Have You Used Other Drugs (for Example, Heroin, Cocaine, Meth, Salvia, Inhalants)? Never [email or web address] Information not available 08/09/2023 Have You Ever Used IV Drugs? No Information not available 08/09/2023 Date Of Most Recent SBINS 08/09/2023 [email or web address] Information not available 08/09/2023 What Was The Date Of Your Most Recent Tobacco Screening? 10/18/2023 Information n ot available 10/18/2023 Has Tobacco Cessation Counseling Been Provided? No [email or web address] Information not available 10/25/2023 Do You Or [...] Influenza, high-dose, trivalent, PF 4 [facility] 16:25:43 COVID-19, mRNA, LNP-S, PF, mayito-sucrose, 30 mcg/0.3 mL 4 completed [facility] 01/09/2024 16:25:43 Td (adult), 2 Lf tetanus toxoid, preservative free, adsorbed 7 completed Not Available [facility] 02/15/2023 05:29:32 Hep A-Hep B 7 completed Not Available [facility] 02/15/2023 05:29:32 Hep A-Hep B 6 completed Not Available [facility] 02/15/2023 05:29:32 Tdap 7 completed Not Available [facility] 02/15/2023 05:29:32 Pneumococcal conjugate PCV 13 7 completed Not Available [facility] 02/15/2023 05:29:32 Td(adult) unspecified formulation 6 completed Not Available [facility] 02/15/2023 05:29:32 Influenza, split virus, trivalent, preservative 6 completed Not Available [facility] 02/15/2023 05:29:32 Influenza, split virus, trivalent, preservative 5 completed Not Available [facility] 02/15/2023 05:29:32 Influenza, split virus, quadrivalent, PF 2 completed Not Available [facility] 02/15/2023 05:29:33 Influenza, split virus, quadrivalent, PF 3 completed Not Available [facility] 02/15/2023 05:29:33 Influenza, split virus, quadrivalent, preservative 7 completed Not Available [facility] 02/15/2023 05:29:33 Influenza, split virus, quadrivalent, preservative 8 completed Not Available [facility] 02/15/2023 05:29:33 Influenza, high-dose, quadrivalent, PF 1 completed Not Available [facility] 02/15/2023 05:29:33 COVID-19, mRNA, LNP-S, PF, 100 mcg/0.5mL dose or 50 mcg/0.25mL dose 1 completed Not Available [facility] 02/15/2023 05:29:33 COVID-19, mRNA, LNP-S, PF, 100 mcg/0.5mL dose or 50 mcg/0.25mL dose 1 completed Not Available [facility] 02/15/2023 05:29:33 COVID-19, mRNA, LNP-S, PF, 100 mcg/0.5mL dose or 50 mcg/0.25mL dose 2 completed Not Available [facility] 02/15/2023 05:29:33 SARS-COV-2 (COVID-19) vaccine, UNSPECIFIED 1 completed Not Available [facility] 02/15/2023 05:29:34 COVID-19, mRNA, LNP-S, bivalent, PF, 30 mcg/0.3 mL dose 3 completed Not Available [facility] 02/15/2023 05:29:34 COVID-19, mRNA, LNP-S, bivalent, PF, 30 mcg/0.3 mL dose 2 completed Not Available [facility] 02/15/2023 05:29:34 pneumococcal polysaccharide PPV23 7 completed Not Available [facility] 02/15/2023 05:29:34 pneumococcal polysaccharide PPV23 5 completed Not Available [facility] 02/15/2023 05:29:34 pneumococcal polysaccharide PPV23 1 completed Not Available [facility] 02/15/2023 05:29:34 Hep B, adult 7 completed Not Available [facility] 02/15/2023 05:29:34 influenza, unspecified formulation 8 completed Not Available [facility] 02/15/2023 05:29:34 influenza, unspecified formulation 4 completed Not Available [facility] 02/15/2023 05:29:34 influenza, unspecified formulation 9 completed Not Available [facility] 02/15/2023 05:29:35 Influenza, high-dose, quadrivalent, PF 3 completed Not Available [facility] 04/19/2023 05:31:38 COVID-19, mRNA, LNP-S, PF, mayito-sucrose, 30 mcg/0.3 mL 3 completed Not Available [facility] 04/19/2023 05:31:38 Past Encounters Encounter ID Performer Location Encounter Start Date Encounter Closed Date Diagnosis/Indication Diagnosis SNOMED-CT Code Diagnosis ICD10 Code Diagnosis Note [id number] EMORY FOSTER LPN [facility] [address] [place] [address] 03/23/2024 11:25:55 03/23/2024 11:44:16 Hypokalemia 79128658 E87.6 [id number] RUPAL BARILLAS MD [facility] [address] [place] [address] 03/27/2024 13:41:08 03/27/2024 14:39:35 Esophageal varices without bleeding 06020765 I85.00 Neuropathy due to type 2 diabetes mellitus 3986330835 68333 E11.40 Mild inter mittent asthma 655177816 J45.20 History of urinary tract infection 6034448092 107 Z87.440 Minimal co gnitive impairment 937660168 R41.89 has f/u for cognitive scg with [facility] scheduled. Encouraged use of lists. Chronic diarrhea 0152528 09 K52.9 [id number] ABDIRAHMAN MURRY RN [address] [address] 04/16/2024 13:27:44 04/16/2024 14:20:03 Chronic cough 16344527 R05.3 She was unaware of diagnosis of asthma which is in chart but has used albuterol with some improvemen t in dyspnea and cough. Advised screening spirometry to evaluate for underlying etiology of her respirator y symptoms and any evidence of chronic lung disease. Dysuria 20125256 R30.0 u/a +, will send for culture, start empiric Abx with cephalexin (sulfa allergy). Will also try to track down urine culture from [facility] in March for which she was treated with cefdinir. Dry lips 169608927 K13.0 Advised conservati ve management . 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 monitor for progressio n. Type 2 abbi betes mellitus without complication 881038733 E11.9 A1c somewhat elevated late February and likely to rise further off metformin but advised continued hold of this medication given that it seemed to worsen her diarrhea. Next A1c due late May. Loose stool 519573510 R1 9.5 Improved slightly since we held metformin 3 weeks ago. Continue current management with addition of a fiber supplement . Encopresis 990240906 R15 .1 Unusual that this has appeared in the setting of improvemen t in diarrhea, advised fiber supplement to add bulk to stools, encouraged adequate fluid intake as well. Could consider referral for pelvic floor therapy if this continues. Diastolic heart failure 847598789 I50.30 She has held torsemide since [facility] in mid March, other than chronic cough no evidence of worsening CHF. Will continue to hold but advised daily weights and monitoring for worsening dyspnea or edema. [id number] EMORY FOSTER LPN [address] [address] 04/20/2024 14:02:08 04/20/2024 14:42:53 Diarrhea 74181160 R19.7 Health Concerns Section Related Observation LastModified by Organization Detai ls LastModified Time None Recorded Concern Status LastModified by Organization Details LastModified Time None Recorded Payers Encounter Date Sequence Insurance Name Policy Number Policy Lucas Covered Member ID Lucas Member ID Guarantor Name 04/20/2024 1 [id number]/A [place]AGE - PPO) [id number] Milka Corbett [id number] Milka Corbett OBGyn Episode No OBEpisode recorded.
--- OUTSIDE RECORDS SUMMARY | 2024-05-18 16:53 | XMS_ITS | Continuity of Care Document ---
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 Schedule pulmonary function test at to differentiate between asthma and COPD. b. [...] devoted to today's encounter, including both the wkau-ge-dwto time with the patient and/or family/caregiver and prv-erzx-mt-face time I personally spent is 50 minutes. [email or web address] Not available 04/16/2024 16:34:58 Plan of Treatment Reminders Order Date Submit Date Provider Last Modified By Organization Details Last Modified Time Details Appointments Acute 2024 04:00P M RICARDO AAMIR Not available Not available Not available Follow Up 2024 11:00A M RUPAL ERAN Not available Not available Not available Lab urinalys is, dipstick 2024 025 [email or web address] [facility], [address] [facility], [place], [address], 04/16/2024 16:35:11 culture + sensitiv ity, urine - clean catch, collecte d at [facility] 2024 025 [email or web address] [facility] (Registration ), [address] [place], [address], 04/23/2024 06:55:49 Referral None recorded . Procedures bronchod ilation responsi veness, pre- and post-bro nchodila tor administ ration (PROC) - pre and post spiromet ry, eval for COPD vs asthma vs overlap syndrome . 2024 025 [facility], [address] [place] [address], [address], 04/17/2024 11:25:19 Surgeries None recorded . Imaging None recorded . Medication Orders None recorded . Patient TargetsNo targets recorded. Patient Instructions Encounter Date Encounter Id Patient Instructions Last Modified By Organization Details Last Modified Time 04/16/2024 [id number] Date: April 16, 2024 Dear Milka, Thank [...] Consider undergoing a pulmonary function test at [facility] to further evaluate your asthma. [...] keep us updated on your progress. Warm regards, Dr. Rupal Barillas MD Family Medicine [email or web address] Not available 04/16/2024 14:33:41 Reason for Referral None Reported. Results Created Date Observation Date Name Description Value Unit Range Abnormal Flag Note LastModifiedBy Organization Detail LastModifiedTime 04/16/19 25 04/16/2024 urina lysis , dipst ick Leukocytes Modera te Not Available [facility] [address] [place], [address], 04/16/2024 14:28:35 04/16/19 25 04/16/2024 urina lysis , dipst ick Nitrite negati ve Not Available [facility] [address] [place], [address], 04/16/2024 14:28:35 04/16/19 25 04/16/2024 urina lysis , dipst ick Urobilinogen .2 Not Available [address], [address], 04/16/2024 14:28:35 04/16/19 25 04/16/2024 urina lysis , dipst ick Protein Negati ve Not Available [facility] [address] [place], [address], 04/16/2024 14:28:35 04/16/19 25 04/16/2024 urina lysis , dipst ick pH 7.0 Not Available [address], [address], 04/16/2024 14:28:35 04/16/19 25 04/16/2024 urina lysis , dipst ick Blood Large Not Available [address], [address], 04/16/2024 14:28:35 04/16/19 25 04/16/2024 urina lysis , dipst ick Specific Bussey 1.000 Not Available [address] [place], [address], 04/16/2024 14:28:35 04/16/19 25 04/16/2024 urina lysis , dipst ick Ketone Trace Not Available [address], [address], 04/16/2024 14:28:35 04/16/19 25 04/16/2024 urina lysis , dipst ick Bilirubin Negati ve Not Available [address], [address], 04/16/2024 14:28:35 04/16/19 25 04/16/2024 urina lysis , dipst ick Glucose Negati ve Not Available [address], [address], 04/16/2024 14:28:35 04/16/19 25 04/16/2024 urina lysis , dipst ick Appearance Slight ly Cloudy Not Available [address], [address], 04/16/2024 14:28:35 04/16/19 25 04/16/2024 urina lysis , dipst ick Color Pale Yellow Not Available [address], [address], 04/16/2024 14:28:35 03/17/20 24 03/17/2024 xr chest 2V Pa and later al [facility] [place] [place] [id number] RADIOL SOHAN TRANSC HARDIKO N REPORT _ Patien t Name: CRISTEL SEGUNDO MRN: Sex: : Age: [id number] F [id number] Accoun t: Access ion: Admit: StayTy pe: [id number] 2023 E Ravinder d: Order ID: Submit nate: David jermain Provid er: 2023 16:03 [id number] Zoey MOSLEY nate: Techno logist : Result [...] t. If you are a health care [facility] er and have any questi ons regard ing this report , please contac t the number below. For patien ts who have questi ons please contac t the health care profes sional that reques nate your imagin g first. Electr onical ly signed by: Kimberly Keith MD Radiol sohan ji ([phone]), at 2023 4:28 PM INTERFACE (Lab) [address] [place] [address], [address], 03/17/2024 16:35:27 03/17/20 24 03/17/2024 EKG order yony ng 12 [facility] Pepe Collins hermosillo [address] EKG TRANSC RIPRODRICKO N REPORT _ Accoun t: Access ion: Admit: StayTy pe: [id number] 2023 E/R Observ ation: Order ID: Submit nate: David aly Provid er: 2023 16:34 [id number] KIN BOYLE _ [place] [id number] [facility] al Test Date: 2023-04 Pat Name: KAYLEE Khan Depart ment: Brice bermudez ID: [id number] Room: Gender : F Techni perri: jr : 1941-0 3-17 Reques nate By: FRANC Yanes Order Number : [id number] Kelby mcdaniels MD: Jung Corona Measur ements Interv als [place] Rate: 109 P: 57 OR: 182 QRS: -22 QRSD: 92 T: 0 QT: 328 QTc: 441 Interp retive Statem ents Sinus tachyc ardia Poor R wave progre ssion, likely due to lead placem ent Compar ed to ECG 2023 09:24: 01 Sinus rhythm no longer presen t Electr onical ly Signed On 2023 19:33: 53 EST by Jung CASANOVA (Lab) [address] [place], [address], 03/17/2024 19:35:41 05/07/19 25 11/06/2016 DEXA No observ ation record ed. [email or web address] - Radiology [address] [place], [address], 05/07/2024 10:15:11 Result Notes None recorded. Problems Name Problem SNOMED Code Status Onset Date Resolution Date Notes Provider Name and Address Organization Details Recorded Time Acute lower respirat ory tract infectio n 873144041 Completed 202303/27/[address], [place], [address] , [facility] 4 14:21:53 Acute confusio n 035196338 Completed 202303/27/[address], [place], [address] , [facility] 4 14:21:53 Chronic cough 24053635 Active [address], [place], [address] , [facility] 5 14:11:35 Dysuria 70236603 Active 2024 Problem Code: R30.0; Problem Code Type: ICD-10; MD [address]ivan [address], [place], [address] , [facility] 5 14:40:58 Dry lips 743558603 Active [address], [place], [address] , [facility] 5 15:15:20 Loose stool 699751272 Active [address], [address] 5 15:16:13 Encopres is 663599747 Active [address], [address] 5 15:16:22 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 155300560 Active [address], [address] 15:16:36 Clostrid ium difficil e colitis 663997085 Active [address], [address] 13:21:24 Pruritic rash 08001430 Active [address], [address] 5 13:21:36 Dizzines s 557344814 Active [address], [address] 5 13:23:52 Essentia l hyperten eugene 51531709 Completed 201305/13/2023 Problem Code: I10; Problem Code Type: ICD-10; MD Livan RODRIGUEZ Dr, [address] 4 13:45:04 Migraine 16842210 Active 2013 Gail rodriguez, [facility] 4 12:45:27 History of disorder of digestiv e system 132989218 Completed 201305/13/2023 Problem Code: Z87.19; Problem Code Type: ICD-10; RUPAL BARILLAS MD [address], [place], [address] , [facility] 4 13:45:04 Restless legs 07507604 [facility] 2013 [facility] 4 12:48:18 Disorder of nervous system due to type 2 diabetes mellitus 467228039 Completed 201305/13/2023 04/27/19 20 - Comments only [...] Problem Code: E11.49; Problem Code Type: ICD-10; RUPAL BARILLAS MD [address], [place], [address] , [facility] 4 13:45:04 Allergic rhinitis 46882278 Completed 201305/13/2023 Problem Code: J30.9; Problem Code Type: ICD-10; MD Livan [address], [place], [address] , [facility] 4 13:45:04 Mixed hyperlip idemia 990250661 Active 2013 [facility] 4 12:45:48 Neuropat hy due to type 2 diabetes mellitus 19894499019 9106 Active 2013 Gail Lavern [facility] 4 12:46:16 Intolera nce to lactose 240319701 Completed 201305/13/2023 Problem Code: E73.9; Problem Code Type: ICD-10; MD Livan [address], [place], [address] , [facility] 4 13:45:04 Heart murmur 46092075 Active [address], [place], [address] , [facility] 4 06:52:52 History of malignan t neoplasm of bladder 894116585 Active 2013, recurren ce 2008, Dr. Boykin, chemo instilla tion, straight caths [facility], [facility] 4 12:43:10 History of nutritio nal disorder 721911597 Completed 201405/13/[address], [place], [address] , [facility] 4 13:45:04 Irritabl e bowel syndrome 79121339 Active 2014 [facility], [facility] 4 12:45:06 Eczema 01940456 Active 2014 [facility] 4 12:38:10 Hernia of abdomina l cavity 49550620 Active 2015 [facility] 4 12:41:15 Cirrhosi s of liver 86975977 Completed 201505/13/2023 09/22/19 20 - Comments only - Nat Bryant M.D. - Has gained some weight, and possibly has ascites, although I have never examined her before. Follow-u p as planned tomorrow for imaging, labs, and speciali [facility] ent at [facility]. Problem Code: K74.69; Problem Code Type: ICD-10; MD Livan [address], [place], [address] , [facility] 4 13:45:04 History of urinary tract infectio n 64859259248 07 Completed 201505/13/2023 08/03/19 16 - Comments [...] Code Type: ICD-10; MD Livan RODRIGUEZ Dr, [address] 4 13:45:04 Screenin g for malignan t neoplasm of breast Completed 201505/13/2023 Problem Code: Z12.39; Problem Code Type: ICD-10; MD Livan RODRIGUEZ Dr, [address] 4 13:45:04 Candidia sis of vagina 48000543 Completed 201505/13/2023 Problem Code: B37.3; Problem Code Type: ICD-10; MD Livan RODRIGUEZ Dr, [address] 4 13:45:04 Portal hyperten eugene 04113499 Active 2015 no ascites or encephal opathy, EGD 2015 (gastric ulcer) Gail rodriguez, [facility] 4 12:47:45 Genitour inary symptoms 686684602 Completed 201504/17/2016 Problem Code: R39.89; Problem Code Type: ICD-10; Not Available [facility] 3 04:10:10 Screenin g for malignan t neoplasm of colon Completed 201605/13/2023 Problem Code: Z12.11; Problem Code Type: ICD-10; MD Livan RODRIGUEZ Dr, [facility] [address] , [facility] 4 13:45:04 Pneumoni a 772878354 Completed 201602/15/2017 02/12/20 17 - Improved - 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 - s/p tx with azithrom ycin pt signific antly improved RTC if sx worsen/p ersist Problem Code: J18.9; Problem Code Type: ICD-10; MD Livan RODR[address] Dr, [place] [address] , [facility] 4 14:21:53 Orthosta tic hypotens ion 84191575 Active 2017 [facility] 4 12:46:41 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 99299506 Active 2018 small endoscop y 2019 [facility] repeat one year [facility] 4 12:39:42 Hepatic failure 83886260 Completed 201805/13/2023 Problem Code: K72.90; Problem Code Type: ICD-10; MD Livan RODRIGUEZ Dr, [facility] [address] , [facility] 4 13:45:04 Acute upper respirat ory infectio n 69282277 Completed 201811/08/2018 Problem Code: J06.9; Problem Code Type: ICD-10; MD Livan RODRIGUE[address] Dr, [facility] [address] , [facility] 4 13:45:04 Proteinu vinod 43516971 Completed 201805/13/2023 Problem Code: R80.9; Problem Code Type: ICD-10; MD Livan RODRIGUE[address] Dr, [facility] [address] , [facility] 4 13:45:04 Hyperlip idemia 88399221 Active 2018 [facility] 4 12:44:49 Gastroes ophageal reflux disease without esophagi tis 912893472 Active 2019 Gail rodriguez [facility] 4 12:39:54 Urinary tract infectio us disease 57836155 Completed 201909/29/2019 09/22/19 20 - Comments only [...] N39.0; Problem Code Type: ICD-10; Not Available [facility] 3 04:10:12 Nervous system and sense organ diseases 571855921 Completed 202005/13/2023 RUPAL BARILLAS MD [address], [place], [address] , [facility] 4 13:45:04 Fall on or from stairs or steps Completed 202005/27/2020 Problem Code: W10.9xxA ; Problem Code Type: ICD-10; Not Available [facility] 3 04:10:12 Knee joint effusion 752669502 Completed 202006/06/2020 Problem Code: M25.469; Problem Code Type: ICD-10; Not Available [facility] 3 04:10:13 Low back pain 103330386 Completed 202006/20/2020 Problem Code: M54.5; Problem Code Type: ICD-10; INDIRA YEN [address], [place], [address] , [facility] 4 14:31:55 Dysuria 74271242 Completed 202009/03/2020 Problem Code: R30.0; Problem Code Type: ICD-10; MD Livan RODRIGUEZ Dr, [facility] [address] [facility] 5 14:40:58 Psychoph ysiologi c insomnia 141246880 Active 2020 Insomnia , chronic Gail rodriguez, [facility] 4 12:48:07 Dizzines s and giddines s 437555406 Completed 202010/31/2020 Problem Code: R42; Problem Code Type: ICD-10; Not Available [facility] 3 04:10:14 Atrophic vaginiti s 91512457 Active [address] [facility], [facility] 4 12:37:19 Urinary tract infectio us disease 10692189 Completed 202003/03/2021 Problem Code: N39.0; Problem Code Type: ICD-10; Not Available [facility] 3 04:10:14 Disorder of hematopo ietic structur e 129475802 Completed 202105/13/2023 Problem Code: D75.89; Problem Code Type: ICD-10; MD Livan RODR[address] Dr, [facility] [address] , [facility] 4 13:45:04 Tension- type headache 364456468 Completed 202105/13/2023 Problem Code: G44.209; Problem Code Type: ICD-10; MD Livan RODRIGUEZ Dr, [facility] [address] , [facility] 4 13:45:04 Acute conjunct ivitis of left eye 97478488492 9105 Completed 202112/19/2021 12/13/19 22 - Comments only - Nat Bryant M.D. - Likely bacteria l. Rx sent for e-mycin ointment . Call for reevalua tion if worsenin g, or no better w/in 48 hours. Problem Code: H10.32; Problem Code Type: ICD-10; Not Available [facility] 3 04:10:15 Cerebrov ascular disease 06091309 Active 2021 [facility] 4 12:37:49 Urinary tract infectio us disease 74732781 Completed 202208/28/2022 Problem Code: N39.0; Problem Code Type: ICD-10; Not Available [facility] 3 04:10:15 Pneumoni a 604966644 Completed 202211/08/2022 10/30/19 23 - Improved - Rupal Barillas MD - But with persiste nt evidence of congesti on in right lung. Advised chest x-ray in a couple of weeks to evaluate for any persiste nt abnormal ities requirin g further follow-u p. She has not had imaging yet with this infectio n. Problem Code: J18.9; Problem Code Type: ICD-10; RUPAL BARILLAS MD [address], [place], [address] , [facility] 4 14:21:53 Edema 875409340 Active 2022 Peripher al edema [facility] 4 12:38:42 Castillo' s esophagu s 793806352 Active 2022 [facility], [facility] 4 12:37:33 Candidia sis of skin 18531505 Completed 201810/23/2022 Problem Code: B37.2; Problem Code Type: ICD-10; Not Available [facility] 3 04:10:16 Acute atopic conjunct ivitis 57408277 Completed 201804/21/2019 Problem Code: H10.10; Problem Code Type: ICD-10; Not Available [facility] 3 04:10:16 Constipa tion 31660509 Completed 201301/02/2023 Problem Code: K59.00; Problem Code Type: ICD-10; Not Available [facility] 3 04:10:16 Cough 58174373 Completed 202201/02/2023 Problem Code: R05.8; Problem Code Type: ICD-10; RUPAL BARILLAS MD [address], [place], [address] , [facility] 4 14:21:53 Hyperten sive disorder 34010170 Completed 201301/02/2023 Not Available [facility] 3 04:10:17 Neoplasm of urinary bladder 283319121 Completed 201301/02/2023 Problem Code: D49.4; Problem Code Type: ICD-10; Not Available [facility] 3 04:10:17 Enthesop athy 48202024 Completed 201812/26/2020 Problem Code: M77.9; Problem Code Type: ICD-10; Not Available [facility] 3 04:10:17 Hypercal cemia 87872498 Completed 201401/02/2023 Not Available [facility] 3 04:10:18 Lung field abnormal 275133208 Completed 201607/29/2017 Problem Code: R91.8; Problem Code Type: ICD-10; Not Available [facility] 3 04:10:18 Insomnia 878333840 Completed 201906/06/2021 Problem Code: F51.09; Problem Code Type: ICD-10; Not Available [facility] 3 04:10:18 Disorder of lung 25490967 Completed 201710/23/2022 Problem Code: J98.4; Problem Code Type: ICD-10; Not Available [facility] 3 04:10:18 Type 2 diabetes mellitus without complica tion 963696054 Completed 201301/02/2023 Problem Code: E11.9; Problem Code Type: ICD-10; INDIRA WATSON [address], [place], [address] , [facility]. 4 15:17:00 Pain of left shoulder joint 21425977877 477733 Completed 201406/06/2021 Problem Code: M25.512; Problem Code Type: ICD-10; Not Available [facility] 3 04:10:19 Screenin g for osteopor osis Completed 201602/11/2017 Problem Code: Z13.820; Problem Code Type: ICD-10; Not Available [facility] 3 04:10:19 Inflamed seborrhe ic keratosi s 118384161 Completed 201910/23/2022 Problem Code: L82.0; Problem Code Type: ICD-10; Not Available [facility] 3 04:10:20 Disorder of brain 90341434 Completed 202103/05/2022 Problem Code: G93.40; Problem Code Type: ICD-10; Not Available [facility] 3 04:10:20 Other idiopath ic peripher al neuropat hy NOS Completed 201301/02/2023 Not Available [facility] 3 04:10:20 Obesity 266810438 Completed 201301/02/2023 Not Available [facility] 3 04:10:20 Fatigue 62811509 Completed 201810/27/2018 Problem Code: R53.83; Problem Code Type: ICD-10; Not Available [facility] 3 04:10:21 Genitour inary symptoms 918088407 Completed 201904/04/2020 Problem Code: R39.9; Problem Code Type: ICD-10; Not Available [facility] 3 04:10:21 Benign paroxysm al position al vertigo 944599617 Completed 202001/02/2023 Problem Code: H81.10; Problem Code Type: ICD-10; Not Available [facility] 3 04:10:22 Disorder of skin and/or subcutan eous tissue 59429896 Completed 201904/04/2020 Problem Code: L98.9; Problem Code Type: ICD-10; Not Available [facility] 3 04:10:22 Osteophy te of bone 53397406760 9100 Completed 201906/28/2020 Problem Code: M25.776; Problem Code Type: ICD-10; Not Available [facility] 3 04:10:22 Gastric ulcer 949362841 Completed 201501/02/2023 Problem Code: K25.9; Problem Code Type: ICD-10; Not Available [facility] 3 04:10:22 Right side sciatica 29564050699 9101 Completed 201804/21/2019 Problem Code: M54.31; Problem Code Type: ICD-10; Not Available [facility] 3 04:10:23 Candidia sis 10777129 Completed 201308/22/2015 Problem Code: B37.9; Problem Code Type: ICD-10; Not Available [facility] 3 04:10:23 Steatosi s of liver 544361570 Completed 201302/10/2016 Problem Code: K76.0; Problem Code Type: ICD-10; Not Available [facility] 3 04:10:23 Cough 62162091 Completed 201912/26/2020 Problem Code: R05; Problem Code Type: ICD-10; RUPAL BARILLAS MD [address], [place], [address] , [facility] 4 14:21:53 Xerostom ia 27038594 Completed 202006/06/2021 Problem Code: R68.2; Problem Code Type: ICD-10; Gail rodriguez, [facility] 4 12:49:03 Candidal vulvovag initis 03137883 Completed 201301/02/2023 Problem Code: 112.1; Problem Code Type: ICD-9; Not Available [facility] 3 04:10:25 Intestin al disaccha ridase deficien cy 43488941 Completed 201301/02/2023 Problem Code: 271.3; Problem Code Type: ICD-9; Not Available [facility] 3 04:10:25 Acute bronchit is 05189324 Completed 201912/26/2020 Problem Code: J20.9; Problem Code Type: ICD-10; Not Available [facility] 3 04:10:26 Peripher al nerve disease 868663979 Completed 201301/02/2023 Not Available [facility] 3 04:10:26 Acute upper respirat ory infectio n 20408984 Completed 202205/13/2023 Problem Code: J06.9; Problem Code Type: ICD-10; MD Livan RODRIGUEZ Dr, [facility] [address] , [facility] 4 13:45:04 Diastoli c heart failure 161392475 Active 2022 echo 03/[address], [facility] [address] , [facility] 3 11:17:46 Chest pain 18269453 Completed 202205/13/2023 Problem Code: R07.89; Problem Code Type: ICD-10; MD Livan RODRIGUEZ Dr, [facility] [address] , [facility] 4 13:45:03 Aortic stenosis , non-rheu matic 882923920 Active 2022 mild 03/2023 echo MD [address]ivan [address], [facility] [address] , [facility] 4 06:52:21 Senile hyperker atosis 239604135 Completed 202205/13/2023 Problem Code: L82.1; Problem Code Type: ICD-10; MD Livan RODRIGUEZ Dr, [facility] [address] , [facility] 4 13:45:03 Melanocy tic nevus 576746484 Completed 202205/13/2023 Problem Code: D22.9; Problem Code Type: ICD-10; MD Livan RODRIGUEZ Dr, [address] 4 13:45:04 Incoordi nation 522971959 Completed 202205/13/2023 01/31/20 23 - Comments only - Rupal Barillas MD - neuro exam not c/w CVA; will eval further at next visit. Problem Code: R27.9; Problem Code Type: ICD-10; MD Livan RODRIGUEZ Dr, [address] 13:45:03 Dyspnea 679542516 Completed 202205/13/2023 Problem Code: R06.09; Problem Code Type: ICD-10; MD Livan RODRIGUEZ Dr, [address] 4 13:45:03 Chronic diarrhea 669870822 Active [address] [facility], [facility] 12:37:57 Drug-ind uced xerostom ia 162518368 Active [address], [address] 4 13:38:38 Microalb uminuric diabetic nephropa thy 928414130 Active 2023 Gail Puckett null, [facility] 12:45:11 Dyspnea on exertion 67059232 Active 2023 Gail Puckett null, [facility] 4 12:37:57 Angular cheiliti s 068882319 Active 2023 Gail Puckett null, [facility] 4 12:36:56 Xerostom ia 93484079 Active [address] [facility], [facility] 4 12:49:03 History of adenomat ous polyp of colon 231349662 Active [address] [facility], [facility] 4 12:43:44 Sialoade nitis 62001923 Completed 202308/09/[address], [facility] [address] , [facility] 4 16:48:36 Low back pain 771649057 Active 2023 Problem Code: M54.5; Problem Code Type: ICD-10; INDIRA YEN Dr, [facility] [address] , [facility] 4 14:31:55 Chest pain on exertion 99139358 Active [address], [facility] [address] , [facility] 12:24:41 Always hungry 104412214 Active [address], [facility] [address] , [facility] 4 16:38:32 Altered bowel function 19288720 Active [address], [facility] [address] , [facility] 4 16:38:44 Atypical chest pain 672430097 Active 2023 DORIS JONES MA null, [facility] 4 07:31:04 Acquired thromboc ytopenia 09161391 Active [address], [place] [address] , [facility] 4 09:56:08 Actinic keratosi s 952015267 Active [address], [address] 4 13:34:57 Nodule of lung 076424504 Active 2023 probable lipoma by PET. (benign) MD Livan RODRIGUEZ Dr, [address] 4 06:49:28 Minimal cognitiv e impairme nt 132576591 Active [address], [address] 4 15:05:52 New daily persiste nt headache 20987572662 9105 Active [address], [place] [address] , [facility] 4 16:29:33 Lichen sclerosu s of vulva 655886284 Active [address], [address] 4 15:22:25 Milia 728467522 Active [address], [address] 4 15:51:39 Obstruct keshia sleep apnea syndrome 58048761 Active 2023 DORIS JONES MA null, [facility] 4 09:39:29 Atherosc lerosis Active 2023 DORIS JONES MA null, [facility] 4 09:39:44 Cirrhosi s - non-alco holic 212425480 Active 2023 with esoph varices and low PLT but no ascites, jaundice or sx. MD Livan RODRIGUEZ Dr, [place] [address] , [facility] 4 06:56:02 Vulvitis 03404088 Active [address], [place] [address] , [facility] 4 13:20:01 Thromboc ytopenic disorder 115220213 Active [address], [address] 4 13:23:28 Decompen sated cirrhosi s of liver 802101413 Active 2023 INDIRA WATSON [address], [place] [address] , [facility] 4 14:23:47 Type 2 diabetes mellitus without complica tion 522318611 Active 2023 Problem Code: E11.9; Problem Code Type: ICD-10; INDIRA WATSON Dr, [address] 4 15:17:00 Coronary arterios clerosis 24955806 Active 2023 DORIS JONES MA null, [facility] 4 12:31:32 Hyperpig mentatio n of skin 02867823 Active [address], [facility] [address] , [facility] 4 15:19:42 Pneumoni a 948467064 Completed 202303/27/2024 10/30/19 23 - Improved - [...] Code Type: ICD-10; MD Livan RODRIGUEZ Dr, [facility] [address] , [facility] 4 14:21:53 Cough 74668702 Completed 202303/27/2024 Problem Code: R05.8; Problem Code Type: ICD-10; MD Livan RODRIGUEZ Dr, [address] 14:21:53 Notes:Some problems listed i n Document: #[id number] could not be added to this patient's chart. Please review this document and add these problems to the patient's chart manually as needed. Problem Notes None recorded. Procedures Surgical History Date Name Laterality Status Provider Name and Address Organization Details Recorded Time 4 Cryosurgery Multiple Actinic Keratoses completed MD Livan RODRIGUEZ Dr, [address] 03/06/2024 11:24:31 4 Cryosurgery Warts/Skin Tags completed MD Livan RODRIGUEZ Dr, [address] 10/18/2023 15:47:48 4 Cryosurgery Warts/Skin Tags completed MD Livan RODRIGUEZ Dr, [address] 10/07/2023 13:34:27 Imaging Results None recorded. Procedure Notes None recorded. Medical Equipment None Reported. Allergies Allergen ID Allergen Name Allergen Category Reaction Reaction Severity Criticality Documentation Date Start Date Code Code System Note Provider Name and Address Organization Details Recorded Time 82055 erythromy laura medicatio n other moderate Not available 02/15/20232013 4053 RxNorm stoma ch pain Gail rodriguez, [facility] 12:53:11 62167 Bactrim medicatio n itching moderate Not available 08/01/20232013 21301 9 RxNorm itchy skin Gailmami Puckett [facility] 4 12:51:33 95949 codeine medicatio n itching moderate Not available 08/01/20232013 2670 RxNorm itchy , paran oid [facility] 4 12:52:07 97538 Demerol medicatio n other moderate Not available 08/01/20232013 12225 1 RxNorm can' t sleep [facility] 12:52:55 44705 simvastat in medicatio n nausea moderate Not available 08/01/20232013 39292 RxNorm (ALLS TATIN S) [facility] 12:53:40 73188 Trulicity medicatio n vomiting moderate low 09/25/2023 85753 96 RxNorm RUPAL BARILLAS MD [address], [place], [address] [place] [address] 12:57:22 Medications Name Sig Start Date Stop [...] once a day 12/[address] Wallis, [facility], after August 2022 OV Not Available Not [...] x /32 Use 1 needle subcutan eously daily 2024 [...] Relief 50 mcg/actua tion nasal spray,[employer] [place] 1 spray into both nostrils once a [...] Updated DateTime 5 154.94 cm 26.5 kg/m2 61791.9 3 g 97.8 [degF] 98 % 98 % 90 /min 132 mm[Hg] 60 mm[Hg] ABDIRAHMAN MURRY RN [facility] 13:43:54 Social History Question Answer Notes LastModified by Organizat ion Details LastModified Time Tobacco Smoking Status Never Smoker GIOVANNA ASIF, [facility] 03/18/2023 15:57:23 Would You Say That, In General, Your Health Is Good [email or web address] Information not available 08/09/2023 How Often Does Anyone, Including Family, Physically Hurt You? Never [email or web address] Information not available 08/09/2023 How Often Does Anyone, Including Family, Insult Or Talk Down To You? Rarely [email or web address] Information no t available 08/09/2023 How Often Does Anyone, Including Family, Threaten You With Harm? Never [email or web address] Information not available 08/09/2023 How Often Does Anyone, Including Family, Scream Or Curse At You? Never [email or web address] Information not available 08/09/2023 Within The Past 12 Months, You Worried That Your Food Would Run Out Before You Got Money To Buy More. Never True [email or web address] Information n ot available 08/09/2023 Within The Past 12 Months, The Food You Bought Just Didn't Last And You Didn't Have Money To Get More. Never True [email or web address] Information not available 08/09/2023 How Hard Is It For You To Pay For The Very Basics Like Food, Housing, Medical Care, And Heating? Would You Say It Is: Somewhat Hard [email or web address] Information not available 08/09/2023 In The Past 12 Months, Has Lack Of Reliable Transportation Kept You From Medical Appointments, Meetings, Work Or From Getting Things Needed For Daily Living? No Information not available 08/09/2023 What Is Your Housing Situation Today? I Have Housing. [email or web address] Information not available 08/09/2023 How Often In The Past Year Have You Used Marijuana (including Smoking, Vaping, Dabbing, Or Edibles)? Never Information not available 08/09/2023 How Often In The Past Year Have You Used Prescription Medications That Were Not Prescribed To You? Never [email or web address] Information not available 08/09/2023 How Often In The Past Year Have You Taken Your Own Prescription Medication More Than The Way It Was Prescribed Or For Different Reasons Than Its Intended Purpose? Never [email or web address] Information not available 08/09/2023 How Often In The Past Year Have You Used Other Drugs (for Example, Heroin, Cocaine, Meth, Salvia, Inhalants)? Never Information not available 08/09/2023 Have You Ever Used IV Drugs? No [email or web address] Information not available 08/09/2023 Date Of Most Recent SBINS 08/09/2023 Information not available 08/09/2023 What Was The Date Of Your Most Recent Tobacco Screening? 10/18/2023 [email or web address] Information n ot available 10/18/2023 Has Tobacco Cessation Counseling Been Provided? No [email or web address] Information not available 10/25/2023 Do You Or [...] 7 , cirrhosis, non ETOH Father: d. [place], acute hepatitis Sisters: x1, cirrhosis, non ETOH, [...] Time Influenza, high-dose, trivalent, PF 4 completed MARY PRETTY MA null, [facility] 01/09/2024 16:25:43 COVID-19, mRNA, LNP-S, PF, mayito-sucrose, 30 mcg/0.3 mL 4 completed MARY PRETTY MA null, [facility] 01/09/2024 16:25:43 Td (adult), 2 Lf tetanus toxoid, preservative free, adsorbed 7 completed Not Available [facility] 02/15/2023 05:29:32 Hep A-Hep B 7 completed Not Available [facility] 02/15/2023 05:29:32 Hep A-Hep B 6 completed Not Available [facility] 02/15/2023 05:29:32 Tdap 7 completed Not Available [facility] 02/15/2023 05:29:32 Pneumococcal conjugate PCV 13 7 completed Not Available [facility] 02/15/2023 05:29:32 Td(adult) unspecified formulation 6 completed Not Available [facility] 02/15/2023 05:29:32 Influenza, split virus, trivalent, preservative 6 completed Not Available [facility] 02/15/2023 05:29:32 Influenza, split virus, trivalent, preservative 5 completed Not Available [facility] 02/15/2023 05:29:32 Influenza, split virus, quadrivalent, PF 2 completed Not Available [facility] 02/15/2023 05:29:33 Influenza, split virus, quadrivalent, PF 3 completed Not Available [facility] 02/15/2023 05:29:33 Influenza, split virus, quadrivalent, preservative 7 completed Not Available [facility] 02/15/2023 05:29:33 Influenza, split virus, quadrivalent, preservative 8 completed Not Available [facility] 02/15/2023 05:29:33 Influenza, high-dose, quadrivalent, PF 1 completed Not Available [facility] 02/15/2023 05:29:33 COVID-19, mRNA, LNP-S, PF, 100 mcg/0.5mL dose or 50 mcg/0.25mL dose 1 completed Not Available [facility] 02/15/2023 05:29:33 COVID-19, mRNA, LNP-S, PF, 100 mcg/0.5mL dose or 50 mcg/0.25mL dose 1 completed Not Available [facility] 02/15/2023 05:29:33 COVID-19, mRNA, LNP-S, PF, 100 mcg/0.5mL dose or 50 mcg/0.25mL dose 2 completed Not Available [facility] 02/15/2023 05:29:33 SARS-COV-2 (COVID-19) vaccine, UNSPECIFIED 1 completed Not Available [facility] 02/15/2023 05:29:34 COVID-19, mRNA, LNP-S, bivalent, PF, 30 mcg/0.3 mL dose 3 completed Not Available [facility] 02/15/2023 05:29:34 COVID-19, mRNA, LNP-S, bivalent, PF, 30 mcg/0.3 mL dose 2 completed Not Available [facility] 02/15/2023 05:29:34 pneumococcal polysaccharide PPV23 7 completed Not Available [facility] 02/15/2023 05:29:34 pneumococcal polysaccharide PPV23 5 completed Not Available [facility] 02/15/2023 05:29:34 pneumococcal polysaccharide PPV23 1 completed Not Available [facility] 02/15/2023 05:29:34 Hep B, adult 7 completed Not Available [facility] 02/15/2023 05:29:34 influenza, unspecified formulation 8 completed Not Available [facility] 02/15/2023 05:29:34 influenza, unspecified formulation 4 completed Not Available [facility] 02/15/2023 05:29:34 influenza, unspecified formulation 9 completed Not Available [facility] 02/15/2023 05:29:35 Influenza, high-dose, quadrivalent, PF 3 completed Not Available [facility] 04/19/2023 05:31:38 COVID-19, mRNA, LNP-S, PF, mayito-sucrose, 30 mcg/0.3 mL 3 completed Not Available [facility] 04/19/2023 05:31:38 Past Encounters Encounter ID Performer Location Encounter Start Date Encounter Closed Date Diagnosis/Indication Diagnosis SNOMED-CT Code Diagnosis ICD10 Code Diagnosis Note [id number] RUPAL BARILLAS MD [address] [address] 03/17/2024 13:44:52 03/17/2024 16:08:58 Acute lower respiratory tract infection 597351777 J22 Findings concerning for possible pneumonia. Advised ER evaluation . Updated Brice provider. Her will bring her directly there. Acute confusion 54559981 0 R41.0 She was unable to give me any details and seemed more confused than usual, concerning for possible delirium. Advised ER evaluation . Her [id number] EMORY FOSTER LPN [address] [address] 03/23/2024 11:25:55 03/23/2024 11:44:16 Hypokalemia 32736996 E87.6 [id number] RUPAL BARILLAS MD [address] [address] 03/27/2024 13:41:08 03/27/2024 14:39:35 Esophageal varices without bleeding 85007549 I85.00 Neuropathy due to type 2 diabetes mellitus 7417880809 49976 E11.40 Mild inter mittent asthma 095360515 J45.20 History of urinary tract infection 4119366736 107 Z87.440 Minimal co gnitive impairment 535512792 R41.89 has f/u for cognitive scg with [facility] scheduled. Encouraged use of lists. Chronic diarrhea 0736652 09 K52.9 [id number] ABDIRAHMAN MURYR RN [address] [address] 04/16/2024 13:27:44 04/16/2024 14:20:03 Chronic cough 75411023 R05.3 She was unaware of diagnosis of asthma which is in chart but has used albuterol with some improvemen t in dyspnea and cough. Advised screening spirometry to evaluate for underlying etiology of her respirator y symptoms and any evidence of chronic lung disease. Dysuria 17022387 R30.0 u/a +, will send for culture, start empiric Abx with cephalexin (sulfa allergy). Will also try to track down urine culture from [facility] in March for which she was treated with cefdinir. Dry lips 660018922 K13.0 Advised conservati ve management . 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 monitor for progressio n. Type 2 abbi betes mellitus without complication 762312198 E11.9 A1c somewhat elevated late February and likely to rise further off metformin but advised continued hold of this medication given that it seemed to worsen her diarrhea. Next A1c due late May. Loose stool 957961414 R1 9.5 Improved slightly since we held metformin 3 weeks ago. Continue current management with addition of a fiber supplement . Encopresis 401645550 R15 .1 Unusual that this has appeared in the setting of improvemen t in diarrhea, advised fiber supplement to add bulk to stools, encouraged adequate fluid intake as well. Could consider referral for pelvic floor therapy if this continues. Diastolic heart failure 915038805 I50.30 She has held torsemide since [facility] in mid March, other than chronic cough no evidence of worsening CHF. Will continue to hold but advised daily weights and monitoring for worsening dyspnea or edema. Health Concerns Section Related Observation LastModified by Organization Detai ls LastModified Time None Recorded Concern Status LastModified by Organization Details LastModified Time None Recorded Payers Encounter Date Sequence Insurance Name Policy Number Policy Lucas Covered Member ID Lucas Member ID Guarantor Name 04/16/2024 1 [id number]IC[place]/A DVANTAGE - PPO) [id number] Milka Corbett [id number] Milka Corbett Notes Date Note Type Note Provider Name and Address Organization Details Recorded Time 04/16/2024 text/html CC: f/u memory impairment, CHF, [...] related to sun damage. ABDIRAHMAN MURRY RN [facility], [place] - [facility]. 04/16/2024 17:07:23 OBGyn Episode No OBEpisode recorded.
--- OUTSIDE RECORDS SUMMARY | 2024-05-18 16:54 | XMS_ITS | Continuity of Care Document ---
Author Organization [facility] Address [address] [place] [address] Care Team Providers Care Manuscripts Archivist Name Role Phone CRYSTAL MCCORMACK Heel Curver LANI WALLIS Clinical Assistant Assessment Encounter Date Assessment Date Assessment [...] and mobility after addressing acute respiratory issues. [email or web address] Not available 03/17/2024 15:27:03 Plan of Treatment Reminders Order Date Submit Date Provider Last Modified By Organization Details Last Modified Time Details Appointments Acute 2024 04:00P M RICARDO AAMIR Not available Not available Not available Follow Up 2024 11:00A M RUPAL ERAN Not available Not available Not available Lab None recorde d. Referral None recorde d. Procedures None recorde d. Surgeries None recorde d. Imaging None recorde d. Medication Orders None recorde d. Patient TargetsNo targets recorded. Patient Instructions Encounter Date Encounter Id Patient Instructions Last Modified By Organization Details Last Modified Time 03/17/2024 [id number] Date: SatMar 17 2024 Dear [Patient's Name], [...] Best regards, Rupal Barillas MD Family Medicine [email or web address] Not available 03/17/2024 15:22:54 Reason for Referral None Reported. Results Created Date Observation Date Name Description Value Unit Range Abnormal Flag Note LastModifiedBy Organization Detail LastModifiedTime 03/17/20 24 03/17/2024 xr chest 2V Pa and later al [facility] RADIOL OGY Collins Lemus [id number] RADIOL OGY TRANSC RIPTIO N REPORT _ Patien t Name: CRISTEL SEGUNDO MRN: Sex: : Age: [id number] F [id number] Accoun t: Access ion: Admit: StayTy pe: [id number] 2023 Aylin Castellon d: Order ID: Submit nate: David Klein er: 2023 16:03 [id number] Zoey MOSLEY nate: Techno logist : Result [...] t. If you are a health care [facility] er and have any questi ons regard ing this report , please contac t the number below. For patien ts who have questi ons please contac t the health care [facility] that reques nate your imagin g first. Electr onical ly signed by: Kimberly Keith MD Radiol sohan ji ([phone]), at 2023 4:28 PM INTERFACE [facility] (Lab) [address] [place] [address], [address], 03/17/2024 16:35:27 03/17/20 24 03/17/2024 EKG order yony ng 12 lead [facility] Pepe Collins hermosillo [id number] EKG TRANSC MACARIOTIMary Ji REPORT _ Accoun t: Access ion: Admit: StayTy pe: [id number] 210 2023 E/R Observ ation: Order ID: Submit nate: David Klein er: 2023 16:34 [id number] KIN BOYLE _ [place] [id number] [facility] Test Date: 2023-04 Pat Name: KAYLEE Esther BETO Bill Depart ment: Brice bermudez ID: [id number] Room: Gender : F Techni perri: jr : 1941-0 06-22 Reques nate By: FRANC Yanes Order Number : [id number] Kelby [email or web address] MD: Jung Corona Measur ements Interv als [place] Rate: 109 P: 57 CT: 182 QRS: [...] Jung Corona INTERFACE [facility] (Lab) [address] [place], [address], 03/17/2024 19:35:41 05/07/19 25 11/06/2016 DEXA No observ ation record ed. [email or web address] [facility] - Radiology [address] [place], [address], 05/07/2024 10:15:11 Result Notes None recorded. Problems Name Problem SNOMED Code Status Onset Date Resolution Date Notes Provider Name and Address Organization Details Recorded Time Acute lower respirat ory tract infectio n 049819533 Completed 202303/27/[address], [address] 4 14:21:53 Acute confusio n 985749093 Completed 202303/27/[address], [address] 4 14:21:53 Chronic cough 69868179 Active [address], [address] 5 14:11:35 Dysuria 13858651 Active 2024 Problem Code: R30.0; Problem Code Type: ICD-10; MD Livan RODRIGUEZ Dr, [address] 5 14:40:58 Dry lips 617968781 Active [address], [address] 5 15:15:20 Loose stool 776057840 Active [address], [address] 5 15:16:13 Encopres is 416775966 Active [address], [address] 5 15:16:22 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 250882355 Active [address], [address] 5 15:16:36 Clostrid ium difficil e colitis 902717961 Active [address], [address] 5 13:21:24 Pruritic rash 48561471 Active [address], [address] 5 13:21:36 Dizzines s 125396679 Active [address], [address] 5 13:23:52 Essentia l hyperten eugene 79241306 Completed 201305/13/2023 Problem Code: I10; Problem Code Type: ICD-10; MD Livan RODRIGUEZ Dr, [address] 4 13:45:04 Migraine 96662804 [facility] 4 12:45:27 History of disorder of digestiv e system 721963064 Completed 201305/13/2023 Problem Code: Z87.19; Problem Code Type: ICD-10; MD Livan RODRIGUEZ Dr, [address] 4 13:45:04 Restless legs 64308259 Active 2013 Gail rodriguez [facility] 4 12:48:18 Disorder of nervous system due to type 2 diabetes mellitus 949672461 Completed 201305/13/2023 04/27/19 20 - Comments only [...] Code Type: ICD-10; MD Livan RODRIGUEZ Dr, [address] 4 13:45:04 Allergic rhinitis 94134681 Completed 201305/13/2023 Problem Code: J30.9; Problem Code Type: ICD-10; MD Livan RODRIGUEZ Dr, [address] 4 13:45:04 Mixed hyperlip idemia 652916271 Active 2013 Gail rodriguez, [facility] 4 12:45:48 Neuropat 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 Boykin, chemo instilla tion, straight caths [facility] 4 12:43:10 History of nutritio nal disorder 177072929 Completed 201405/13/2023 RUPAL BARILLAS MD [address], [place], [address] , [facility] 4 13:45:04 Irritabl e bowel syndrome 56476232 Active 2014 [facility] 4 12:45:06 Eczema 65267217 [facility] 4 12:38:10 Hernia of abdomina l cavity 02913905 Active 2015 [facility] 4 12:41:15 Cirrhosi s of liver 09030689 Completed 201505/13/2023 09/22/19 20 - Comments only - Nat Bryant M.D. - Has gained some weight, and possibly has ascites, although I have never examined her before. Follow-u p as planned tomorrow for imaging, labs, and speciali [facility] ent at [facility]. Problem Code: K74.69; Problem Code Type: ICD-10; RUPAL BARILLAS MD [address], [place], [address] , [facility] 4 13:45:04 History of urinary tract infectio n 03432290414 07 Completed 201505/13/2023 08/03/19 16 - Comments [...] Livan RODRIGUEZ Dr, [facility] [address] [place] [address] 4 13:45:04 Screenin g for malignan t neoplasm of breast Completed 201505/13/2023 Problem Code: Z12.39; Problem Code Type: ICD-10; MD Livan RODRIGUEZ Dr, [address] 4 13:45:04 Candidia sis of vagina 29435185 Completed 201505/13/2023 Problem Code: B37.3; Problem Code Type: ICD-10; MD Livan RODRIGUEZ Dr, [facility] [address] [place] [address] 4 13:45:04 Portal hyperten eugene 83758918 Active 2015 no ascites or encephal opathy, EGD 2015 (gastric ulcer) [facility] 4 12:47:45 Genitour inary symptoms 464746348 Completed 201504/17/2016 Problem Code: R39.89; Problem Code Type: ICD-10; Not Available [facility] 3 04:10:10 Screenin g for malignan t neoplasm of colon Completed 201605/13/2023 Problem Code: Z12.11; Problem Code Type: ICD-10; MD Livan RODRIGUEZ Dr, [facility] [address] , [facility] 4 13:45:04 Pneumoni a 664546278 Completed 201602/15/2017 02/12/20 17 - Improved - 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 [employer]ER - s/p tx with azithrom ycin pt signific antly improved RTC if sx worsen/p ersist Problem Code: J18.9; Problem Code Type: ICD-10; MD Livan RODRIGUEZ Dr, [address] 4 14:21:53 Orthosta tic hypotens ion 05749091 Active 2017 [facility] 4 12:46:41 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 92623857 Active 2018 small endoscop y 2019 [facility] repeat one year [facility] 4 12:39:42 Hepatic failure 92245130 Completed 201805/13/2023 Problem Code: K72.90; Problem Code Type: ICD-10; MD Livan RODRIGUEZ Dr, [address] 4 13:45:04 Acute upper respirat ory infectio n 99991447 Completed 201811/08/2018 Problem Code: J06.9; Problem Code Type: ICD-10; MD Livan RODRIGUZE Dr, [address] 4 13:45:04 Proteinu vinod 19566908 Completed 201805/13/2023 Problem Code: R80.9; Problem Code Type: ICD-10; MD Livan RODRIGUEZ Dr, [address] 4 13:45:04 Hyperlip idemia 35990244 Active 2018 [facility] 4 12:44:49 Gastroes ophageal reflux disease without esophagi tis 014393121 Active 2019 Patriot Lavern [facility] 4 12:39:54 Urinary tract infectio us disease 50741691 Completed 201909/29/2019 09/22/19 20 - Comments only [...] N39.0; Problem Code Type: ICD-10; Not Available [facility] 3 04:10:12 Nervous system and sense organ diseases 496651591 Completed 202005/13/[address], [place], [address] , [facility] 4 13:45:04 Fall on or from stairs or steps Completed 202005/27/2020 Problem Code: W10.9xxA ; Problem Code Type: ICD-10; Not Available [facility] 3 04:10:12 Knee joint effusion 764313027 Completed 202006/06/2020 Problem Code: M25.469; Problem Code Type: ICD-10; Not Available [facility] 3 04:10:13 Low back pain 310939472 Completed 202006/20/2020 Problem Code: M54.5; Problem Code Type: ICD-10; INDIRA YEN [address], [place], [address] , [facility] 4 14:31:55 Dysuria 65155870 Completed 202009/03/2020 Problem Code: R30.0; Problem Code Type: ICD-10; MD Livan RODRIGUEZ Dr, [place], [address] , [facility] 5 14:40:58 Psychoph ysiologi c insomnia 147368646 Active 2020 Insomnia , chronic Gail Lavern rodriguez, [facility] 4 12:48:07 Dizzines s and giddines s 057644926 Completed 202010/31/2020 Problem Code: R42; Problem Code Type: ICD-10; Not Available [facility] 3 04:10:14 Atrophic vaginiti s 17909665 Active 2020 Gail rodriguez, [facility] 4 12:37:19 Urinary tract infectio us disease 03287540 Completed 202003/03/2021 Problem Code: N39.0; Problem Code Type: ICD-10; Not Available [facility] 3 04:10:14 Disorder of hematopo ietic structur e 465539881 Completed 202105/13/2023 Problem Code: D75.89; Problem Code Type: ICD-10; RUPAL BARILLAS MD [address], [address] 4 13:45:04 Tension- type headache 245694510 Completed 202105/13/2023 Problem Code: G44.209; Problem Code Type: ICD-10; RUPAL BARILLAS MD [address], [address] 4 13:45:04 Acute conjunct ivitis of left eye 83940664149 9105 Completed 202112/19/2021 12/13/19 22 - Comments only - Nat Bryant M.D. - Likely bacteria l. Rx sent for e-mycin ointment . Call for reevalua tion if worsenin g, or no better w/in 48 hours. Problem Code: H10.32; Problem Code Type: ICD-10; Not Available [facility] 3 04:10:15 Cerebrov ascular disease 68695023 Active 2021 Gail rodriguez, [facility] 4 12:37:49 Urinary tract infectio us disease 96084484 Completed 202208/28/2022 Problem Code: N39.0; Problem Code Type: ICD-10; Not Available [facility] 3 04:10:15 Pneumoni a 337273621 Completed 202211/08/2022 10/30/19 23 - Improved - [...] Code Type: ICD-10; MD Livan RODRIGUEZ Dr, [place], [address] , [facility] 4 14:21:53 Edema 104825159 Active 2022 Peripher al edema [facility] 4 12:38:42 Castillo' s esophagu s 167297715 Active 2022 [facility] 4 12:37:33 Candidia sis of skin 94779443 Completed 201810/23/2022 Problem Code: B37.2; Problem Code Type: ICD-10; Not Available [facility] 3 04:10:16 Acute atopic conjunct ivitis 37223003 Completed 201804/21/2019 Problem Code: H10.10; Problem Code Type: ICD-10; Not Available [facility] 3 04:10:16 Constipa tion 32562234 Completed 201301/02/2023 Problem Code: K59.00; Problem Code Type: ICD-10; Not Available [facility] 3 04:10:16 Cough 95691193 Completed 202201/02/2023 Problem Code: R05.8; Problem Code Type: ICD-10; MD Livan RODRIGUEZ Dr, [place], [address] , [facility] 4 14:21:53 Hyperten sive disorder 40939136 Completed 201301/02/2023 Not Available [facility] 3 04:10:17 Neoplasm of urinary bladder 163392332 Completed 201301/02/2023 Problem Code: D49.4; Problem Code Type: ICD-10; Not Available [facility] 3 04:10:17 Enthesop athy 63351316 Completed 201812/26/2020 Problem Code: M77.9; Problem Code Type: ICD-10; Not Available [facility] 3 04:10:17 Hypercal cemia 51238995 Completed 201401/02/2023 Not Available [facility] 3 04:10:18 Lung field abnormal 912518687 Completed 201607/29/2017 Problem Code: R91.8; Problem Code Type: ICD-10; Not Available [facility] 3 04:10:18 Insomnia 562472469 Completed 201906/06/2021 Problem Code: F51.09; Problem Code Type: ICD-10; Not Available [facility] 3 04:10:18 Disorder of lung 43062683 Completed 201710/23/2022 Problem Code: J98.4; Problem Code Type: ICD-10; Not Available [facility] 3 04:10:18 Type 2 diabetes mellitus without complica tion 321576184 Completed 201301/02/2023 Problem Code: E11.9; Problem Code Type: ICD-10; [address], [place], [address] , [facility]. 4 15:17:00 Pain of left shoulder joint 45987319771 655899 Completed 201406/06/2021 Problem Code: M25.512; Problem Code Type: ICD-10; Not Available [facility] 3 04:10:19 Screenin g for osteopor osis Completed 201602/11/2017 Problem Code: Z13.820; Problem Code Type: ICD-10; Not Available [facility] 3 04:10:19 Inflamed seborrhe ic keratosi s 573993774 Completed 201910/23/2022 Problem Code: L82.0; Problem Code Type: ICD-10; Not Available [facility] 3 04:10:20 Disorder of brain 33124128 Completed 202103/05/2022 Problem Code: G93.40; Problem Code Type: ICD-10; Not Available [facility] 3 04:10:20 Other idiopath ic peripher al neuropat hy NOS Completed 201301/02/2023 Not Available [facility] 3 04:10:20 Obesity 093302949 Completed 201301/02/2023 Not Available [facility] 3 04:10:20 Fatigue 94501038 Completed 201810/27/2018 Problem Code: R53.83; Problem Code Type: ICD-10; Not Available [facility] 3 04:10:21 Genitour inary symptoms 553790892 Completed 201904/04/2020 Problem Code: R39.9; Problem Code Type: ICD-10; Not Available [facility] 3 04:10:21 Benign paroxysm al position al vertigo 231633868 Completed 202001/02/2023 Problem Code: H81.10; Problem Code Type: ICD-10; Not Available [facility] 3 04:10:22 Disorder of skin and/or subcutan eous tissue 49225435 Completed 201904/04/2020 Problem Code: L98.9; Problem Code Type: ICD-10; Not Available [facility] 3 04:10:22 Osteophy te of bone 89192456077 9100 Completed 201906/28/2020 Problem Code: M25.776; Problem Code Type: ICD-10; Not Available [facility] 3 04:10:22 Gastric ulcer 714347429 Completed 201501/02/2023 Problem Code: K25.9; Problem Code Type: ICD-10; Not Available [facility] 3 04:10:22 Right side sciatica 56906641956 9101 Completed 201804/21/2019 Problem Code: M54.31; Problem Code Type: ICD-10; Not Available [facility] 3 04:10:23 Toniia sis 31009832 Completed 201308/22/2015 Problem Code: B37.9; Problem Code Type: ICD-10; Not Available [facility] 3 04:10:23 Steatosi s of liver 897856260 Completed 201302/10/2016 Problem Code: K76.0; Problem Code Type: ICD-10; Not Available [facility] 3 04:10:23 Cough 36020697 Completed 201912/26/2020 Problem Code: R05; Problem Code Type: ICD-10; RUPAL BARILLAS MD [address], [place], [address] [facility] 4 14:21:53 Xerostom ia 45491512 Completed 202006/06/2021 Problem Code: R68.2; Problem Code Type: ICD-10; [facility] 4 12:49:03 Candidal vulvovag initis 83158789 Completed 201301/02/2023 Problem Code: 112.1; Problem Code Type: ICD-9; Not Available [facility] 3 04:10:25 Intestin al disaccha ridase deficien cy 76915982 Completed 201301/02/2023 Problem Code: 271.3; Problem Code Type: ICD-9; Not Available [facility] 3 04:10:25 Acute bronchit is 60575385 Completed 201912/26/2020 Problem Code: J20.9; Problem Code Type: ICD-10; Not Available [facility] 3 04:10:26 Peripher al nerve disease 970528065 Completed 201301/02/2023 Not Available [facility] 3 04:10:26 Acute upper respirat ory infectio n 22046569 Completed 202205/13/2023 Problem Code: J06.9; Problem Code Type: ICD-10; MD Livan RODRIGUEZ Dr, [address] 4 13:45:04 Diastoli c heart failure 224432221 Active 2022 echo 03/[address], [address] 3 11:17:46 Chest pain 56054437 Completed 202205/13/2023 Problem Code: R07.89; Problem Code Type: ICD-10; MD Livan RODRIGUEZ Dr, [address] 4 13:45:03 Aortic stenosis , non-rheu matic 921908637 Active 2022 mild 03/2023 echo MD Livan RODRIGUEZ Dr, [address] 4 06:52:21 Senile hyperker atosis 133468058 Completed 202205/13/2023 Problem Code: L82.1; Problem Code Type: ICD-10; MD Livan RODRIGUEZ Dr, [address] 4 13:45:03 Melanocy tic nevus 168259763 Completed 202205/13/2023 Problem Code: D22.9; Problem Code Type: ICD-10; MD Livan RODRIGUEZ Dr, [address] 4 13:45:04 [facility] 15[facility]52 Completed 202205/13/2023 01/31/20 23 - Comments only - Rupal Barillas MD - neuro exam not c/w CVA; will eval further at next visit. Problem Code: R27.9; Problem Code Type: ICD-10; MD [address]ivan [address], [place], [address] , [facility] 4 13:45:03 Dyspnea 062201670 Completed 202205/13/2023 Problem Code: R06.09; Problem Code Type: ICD-10; MD [address]ivan [address], [place], [address] , [facility] 4 13:45:03 Chronic diarrhea 551732206 Active 2023 [facility] 12:37:57 Drug-ind uced xerostom ia 069380549 Active [address], [place], [address] , [facility] 13:38:38 Microalb uminuric diabetic nephropa thy 579714993 Active 2023 [facility] 12:45:11 Dyspnea on exertion 27341081 Active 2023 [facility] 12:37:57 Angular cheiliti s 765719249 Active 2023 [facility] 12:36:56 Xerostom ia 59096660 Active 2023 [facility] 12:49:03 History of adenomat ous polyp of colon 049974907 Active 2020 [facility] 12:43:44 Sialoade nitis 19394602 Completed 202308/09/[address], [place], [address] , [facility] 4 16:48:36 Low back pain 690137156 Active 2023 Problem Code: M54.5; Problem Code Type: ICD-10; AMADEO VICTORINO, SPORTS THERAPIST [address], [facility] [address] [place] [address] 4 14:31:55 Chest pain on exertion 98114844 Active [address], [address] [place] [address] 4 12:24:41 Always hungry 664692766 Active [address], [address] [place] [address] 4 16:38:32 Altered bowel function 66760752 Active [address], [address] [place] [address] 4 16:38:44 Atypical chest pain 204484685 Active 2023 DORIS JONES MA [facility], [facility] 4 07:31:04 Acquired thromboc ytopenia 03452374 Active [address], [place] [address] , [facility] 4 09:56:08 Actinic keratosi s 087390435 Active [address], [facility] [address] [place] [address] 4 13:34:57 Nodule of lung 737563486 Active 2023 probable lipoma by PET. (benign) MD Livan R[address]UEZ Dr, [facility] [address] , [facility] 4 06:49:28 Minimal cognitiv e impairme nt 559785965 Active [address], [place], [address] , [facility] 4 15:05:52 New daily persiste nt headache 53942707630 9105 Active [address], [place], [address] , [facility] 4 16:29:33 Lichen sclerosu s of vulva 621249572 Active [address], [place], [address] , [facility] 4 15:22:25 Milia 242270492 Active [address], [facility] [address] , [facility] 4 15:51:39 Obstruct keshia sleep apnea syndrome 01896251 Active 2023 DORIS JONES MA null, [facility] 4 09:39:29 Atherosc lerosis Active 2023 DORIS JONES MA null, [facility] 4 09:39:44 Cirrhosi s - non-alco holic 369585975 Active 2023 with esoph varices and low PLT but no ascites, jaundice or sx. MD [address]ivan [address], [place], [address] , [facility] 4 06:56:02 Vulvitis 34670718 Active [address], [place], [address] , [facility] 4 13:20:01 Thromboc ytopenic disorder 139819472 Active [address], [facility] [address] , [facility] 4 13:23:28 Decompen sated cirrhosi s of liver 858314124 Active [address], [place], [address] , [facility] 4 14:23:47 Type 2 diabetes mellitus without complica tion 227725181 Active 2023 Problem Code: E11.9; Problem Code Type: ICD-10; IN[address], [facility] [address] , [facility] 4 15:17:00 Coronary arterios clerosis 40951493 Active 2023 DORIS JONES [facility], [facility] 4 12:31:32 Hyperpig mentatio n of skin 56527807 Active [address], [place], [address] , [facility] 4 15:19:42 Pneumoni a 944648153 Completed 202303/27/2024 10/30/19 23 - Improved - [...] Code Type: ICD-10; MD Livan [address], [place], [address] , [facility] 4 14:21:53 Cough 23659523 Completed 202303/27/2024 Problem Code: R05.8; Problem Code Type: ICD-10; MD [address]ivan [address], [place], [address] , [facility] 14:21:53 Notes:Some problems listed i n Document: #[id number] could not be added to this patient's chart. Please review this document and add these problems to the patient's chart manually as needed. Problem Notes None recorded. Procedures Surgical History Date Name Laterality Status Provider Name and Address Organization Details Recorded Time Cryosurgery Multiple Actinic Keratoses completed MD Livan RODRIGUEZ Dr, [facility] [address] [place] [address] 03/06/2024 11:24:31 4 Cryosurgery Warts/Skin Tags completed MD Livan RODRIGUEZ Dr, [facility] [address] [place] [address] 10/18/2023 15:47:48 4 Cryosurgery Warts/Skin Tags completed MD Livan RODRIGUEZ Dr, [facility] [address] [place] [address] 10/07/2023 13:34:27 Imaging Results None recorded. Procedure Notes None recorded. Medical Equipment None Reported. Allergies Allergen ID Allergen Name Allergen Category Reaction Reaction Severity Criticality Documentation Date Start Date Code Code System Note Provider Name and Address Organization Details Recorded Time 17955 erythromy laura medicatio n other moderate Not available 02/15/20232013 4053 RxNorm stoma ch [facility] 12:53:11 69469 Bactrim medicatio n itching moderate Not available 08/01/20232013 35908 9 RxNorm itchy skin Gail Puckett [facility] 12:51:33 87345 codeine medicatio n itching moderate Not available 08/01/20232013 2670 RxNorm itchy , paran oid Gail [facility]reg[facility], [facility] 12:52:07 54443 Demerol medicatio n other moderate Not available 08/01/20232013 18308 1 RxNorm can' t sleep Gail rodriguez, [facility] 4 12:52:55 84046 simvastat in medicatio n nausea moderate Not available 08/01/20232013 38097 RxNorm (ALLS JEISON S) Gail rodriguez, [facility] 4 12:53:40 75480 Trulicity medicatio n vomiting moderate low 09/25/2023 63729 96 RxNorm RUPAL BARILLAS MD [address], [place], [address] [place] [address] 4 12:57:22 Medications Name Sig Start Date [...] once a day 12/[address] Wallis, [facility], after August 2022 OV Not Available Not Available Not Available gabapenti n 800 mg tablet Take 1 tablet by mouth three times a day 2019 active Not Available Not Available Not Avai lable OneToLiquid Scenarios Ultra Test strips USE 1 STRIP VIA [...] Relief 50 mcg/actua tion nasal spray,moraima pension [place] 1 spray into both nostrils once a [...] Updated DateTime 4 154.94 cm 26 kg/m2 43836.9 5 g 96 % 96 % 84 /min 98.4 [degF] 120 mm[Hg] 64 mm[Hg] SANTOSH BAIG LPN [facility] 4 13:55:28 Social History Question Answer Notes LastModified by Organizat ion Details LastModified Time Tobacco Smoking Status Never Smoker GIOVANNA ASIF, [place] - [facility]. 03/18/2023 15:57:23 Would You Say That, In General, Your Health Is Good [email or web address] Information not available 08/09/2023 How Often Does Anyone, Including Family, Physically Hurt You? Never [email or web address] Information not available 08/09/2023 How Often Does Anyone, Including Family, Insult Or Talk Down To You? Rarely [email or web address] Information no t available 08/09/2023 How Often Does Anyone, Including Family, Threaten You With Harm? Never Information not available 08/09/2023 How Often Does Anyone, Including Family, Scream Or Curse At You? Never Information not available 08/09/2023 Within The Past 12 Months, You Worried That Your Food Would Run Out Before You Got Money To Buy More. Never True [email or web address] Information n ot available 08/09/2023 Within The Past 12 Months, The Food You Bought Just Didn't Last And You Didn't Have Money To Get More. Never True [email or web address] Information not available 08/09/2023 How Hard Is It For You To Pay For The Very Basics Like Food, Housing, Medical Care, And Heating? Would You Say It Is: Somewhat Hard Information not available 08/09/2023 In The Past 12 Months, Has Lack Of Reliable Transportation Kept You From Medical Appointments, Meetings, Work Or From Getting Things Needed For Daily Living? No [email or web address] Information not available 08/09/2023 What Is Your Housing Situation Today? I Have Housing. Information not available 08/09/2023 How Often In The Past Year Have You Used Marijuana (including Smoking, Vaping, Dabbing, Or Edibles)? Never [email or web address] Information not available 08/09/2023 How Often In The Past Year Have You Used Prescription Medications That Were Not Prescribed To You? Never [email or web address] Information not available 08/09/2023 How Often In The Past Year Have You Taken Your Own Prescription Medication More Than The Way It Was Prescribed Or For Different Reasons Than Its Intended Purpose? Never [email or web address] Information not available 08/09/2023 How Often In The Past Year Have You Used Other Drugs (for Example, Heroin, Cocaine, Meth, Salvia, Inhalants)? Never [email or web address] Information not available 08/09/2023 Have You Ever Used IV Drugs? No [email or web address] Information not available 08/09/2023 Date Of Most Recent SBINS 08/09/2023 [email or web address] Information not available 08/09/2023 What Was The Date Of Your Most Recent Tobacco Screening? 10/18/2023 [email or web address] Information n ot available 10/18/2023 Has Tobacco Cessation Counseling Been Provided? No [email or web address] Information not available 10/25/2023 Do You Or Have You Ever Used Any Other Forms Of Tobacco Or Nicotine? No [email or web address] Information not available 03/18/2023 Sex: Female Functional Status None recorded. Mental Status None recorded. Family History Relationship Description Onset Age of this Age Resolved Age Notes LastModified by Organization Details LastModified Time Mother Family history of acute medical disorder [email or web address] Not available 2022 03:54:47 Notes:*Problem: Mother: d. 6 7 , cirrhosis, non ETOH Father: d. [place], acute hepatitis Sisters: x1, cirrhosis, non ETOH, [...] high-dose, trivalent, PF 4 completed GIOVANNA ASIF [facility] 01/09/2024 16:25:43 COVID-19, mRNA, LNP-S, PF, mayito-sucrose, 30 mcg/0.3 mL 4 completed GIOVANNA ASIF [facility] 01/09/2024 16:25:43 Td (adult), 2 Lf tetanus toxoid, preservative free, adsorbed 7 completed Not Available [facility] 02/15/2023 05:29:32 Hep A-Hep B 7 completed Not Available [facility] 02/15/2023 05:29:32 Hep A-Hep B 6 completed Not Available [facility] 02/15/2023 05:29:32 Tdap 7 completed Not Available [facility] 02/15/2023 05:29:32 Pneumococcal conjugate PCV 13 7 completed Not Available [facility] 02/15/2023 05:29:32 Td(adult) unspecified formulation 6 completed Not Available [facility] 02/15/2023 05:29:32 Influenza, split virus, trivalent, preservative 6 completed Not Available [facility] 02/15/2023 05:29:32 Influenza, split virus, trivalent, preservative 5 completed Not Available [facility] 02/15/2023 05:29:32 Influenza, split virus, quadrivalent, PF 2 completed Not Available [facility] 02/15/2023 05:29:33 Influenza, split virus, quadrivalent, PF 3 completed Not Available [facility] 02/15/2023 05:29:33 Influenza, split virus, quadrivalent, preservative 7 completed Not Available [facility] 02/15/2023 05:29:33 Influenza, split virus, quadrivalent, preservative 8 completed Not Available [facility] 02/15/2023 05:29:33 Influenza, high-dose, quadrivalent, PF 1 completed Not Available [facility] 02/15/2023 05:29:33 COVID-19, mRNA, LNP-S, PF, 100 mcg/0.5mL dose or 50 mcg/0.25mL dose 1 completed Not Available [facility] 02/15/2023 05:29:33 COVID-19, mRNA, LNP-S, PF, 100 mcg/0.5mL dose or 50 mcg/0.25mL dose 1 completed Not Available [facility] 02/15/2023 05:29:33 COVID-19, mRNA, LNP-S, PF, 100 mcg/0.5mL dose or 50 mcg/0.25mL dose 2 completed Not Available [facility] 02/15/2023 05:29:33 SARS-COV-2 (COVID-19) vaccine, UNSPECIFIED 1 completed Not Available [facility] 02/15/2023 05:29:34 COVID-19, mRNA, LNP-S, bivalent, PF, 30 mcg/0.3 mL dose 3 completed Not Available [facility] 02/15/2023 05:29:34 COVID-19, mRNA, LNP-S, bivalent, PF, 30 mcg/0.3 mL dose 2 completed Not Available [facility] 02/15/2023 05:29:34 pneumococcal polysaccharide PPV23 7 completed Not Available [facility] 02/15/2023 05:29:34 pneumococcal polysaccharide PPV23 5 completed Not Available [facility] 02/15/2023 05:29:34 pneumococcal polysaccharide PPV23 1 completed Not Available [facility] 02/15/2023 05:29:34 Hep B, adult 7 completed Not Available [facility] 02/15/2023 05:29:34 influenza, unspecified formulation 8 completed Not Available [facility] 02/15/2023 05:29:34 influenza, unspecified formulation 4 completed Not Available [facility] 02/15/2023 05:29:34 influenza, unspecified formulation 9 completed Not Available [facility] 02/15/2023 05:29:35 Influenza, high-dose, quadrivalent, PF 3 completed Not Available [facility] 04/19/2023 05:31:38 COVID-19, mRNA, LNP-S, PF, mayito-sucrose, 30 mcg/0.3 mL 3 completed Not Available [facility] 04/19/2023 05:31:38 Past Encounters Encounter ID Performer Location Encounter Start Date Encounter Closed Date Diagnosis/Indication Diagnosis SNOMED-CT Code Diagnosis ICD10 Code Diagnosis Note [id number] RUPAL BARILLAS MD [address] [address] 03/04/2024 13:41:07 03/04/2024 14:36:13 Neuropathy due to type 2 diabetes mellitus [id number] 33114 E11.40 Actinic keratosis 007 L57.0 L eyelid, treated with cryotherap y today, re-eval at next OV. Decompensa nate cirrhosis of liver 996049349 K74.60 Chronic diarrhea 1267215 09 K52.9 Castillo's esophagus 3029 95224 K22.70 Atypical chest pain 1025 24374 R07.89 Psychophys iologic insomnia 149771923 F51.04 Cough 22497576 R05.9 [id number] RUPAL BARILLAS MD [facility] [address] [place] [address] 03/17/2024 13:44:52 03/17/2024 16:08:58 Acute lower respiratory tract infection 279791527 J22 Findings concerning for possible pneumonia. Advised ER evaluation . Updated Brice provider. Her will bring her directly there. Acute confusion 02320129 0 R41.0 She was unable to give [...] 1 [place]/A [place]ANTAGE - PPO) [id number] Milka Corbett [id number] 66 Milka Corbett Notes Date Note Type [...] cream. RUPAL BARILLAS MD [address], [place], [address], [facility]. 03/17/2024 15:27:17 OBGyn Episode No OBEpisode recorded.
--- OUTSIDE RECORDS SUMMARY | 2024-05-18 16:54 | XMS_ITS | Clinical Summary ---
Author Organization [facility] [place] [address] Care Team Providers Care Claims Assistant Name Role Phone Aysha Johnson MD Primary Care Provider [phone] Allergies Active Allergy Reactions Criticality Noted Date [...] Dispensed Refills Start Date End Date Status fish oil-omega-3 fatty acids with vitamin E 1,000 mg Capsule Take 3,000 mg by mouth daily. Active multivitamin (THERAGRAN) tablet Take 1 tablet by mouth daily. Active gabapentin (NEURONTIN) 600 mg Tablet Take 600 mg by mouth 2 times daily. Active metFORMIN (GLUCOPHAGE) 1,000 mg tablet Take 1,000 mg by mouth 2 times daily (with meals). Active fluticasone propionate (FLONASE) 50 mcg/actuation Harts, Suspension 1 spray daily. Act keshia pramipexole (MIRAPEX) 0.125 mg Tablet Take 0.5 mg by mouth nightly. 07/28/2018 Active Victoza 2-Jl 0.6 mg/0.1 mL (18 mg/3 mL) Pen Injector Inject 1.8 mg as directed. 05/02/2020 Active atorvastatin (Lipitor) 20 mg Tablet Take 20 mg by mouth daily. Active lisinopriL (Zestril) 10 mg tablet Take 1 tablet by mouth once a day for kidney protection 06/06/2009 Active carvediloL (Coreg) 6.25 mg tabletIndications:P ortal hypertension TAKE 1 TABLET BY MOUTH TWICE DAILY WITH MEALS 180 tablet 1 10/23/2023 Active isosorbide mononitrate CR (Imdur) 30 mg ER 24 hr tablet Take 30 mg by mouth 2 times daily. Active aspirin EC 81 mg EC (DR) tablet Take 1 tablet by mouth daily. Active albuteroL 90 mcg/actuation inhaler (HFA) Inhale 2 puffs into the lungs every 6 hours as needed for Wheezing or Shortness of Breath. Active Jardiance 25 mg tablet Take 1 tablet by mouth daily. Active nitroGLYcerin (Nitrostat) 0.3 mg sublingual tabletIndications:C oronary artery disease, unspecified vessel or lesion type, unspecified whether angina present, unspecified whether point lay ira or transplanted heart Place 1 tablet under the tongue every 5 minutes as needed for Chest pain. 25 tablet 12 12/13/2023 Active omeprazole (PriLOSEC) [address] capsuleIndications: [...] (05/19/2020): Added automatically from request for surgery [id number] NAFLD (nonalcoholic fatty liver disease) 016 Mixed incontinence 07/27/2012 Bladder cancer 07/08/2012 S/P hysterectomy 07/08/2012 Vaginal lesion 07/08/2012 Encounters Date Type Department Care Team Description 04/28/2024 2:00 PM EST Office [place] [address] Lani Wallis APRN Hepatic cirrhosis, unspecified hepatic cirrhosis type, unspecified whether ascites present 04/28/2024 10:41 AM EST - 04/28/2024 11:59 PM EST Hospital [place] [address] Lani Wallis APRN Hepatic cirrhosis, unspecified hepatic cirrhosis type, unspecified whether ascites present Discharge Disposition: Home 04/28/2024 Travel 04/14/2024 [place] [address] Lani Wallis APRN Gastroesophageal reflux disease without esophagitis 03/17/2024 Interpretation Only [facility] in [address] [address] Zoe Lay APRN from Last 3 Months Family History Medical [...] pur e alcohol) once per year [facility] Inpatient Questions Answer Date [...] Sign Reading Time Taken Comments Blood Pressure 129/68 04/28/2024 1:56 PM EST Pulse 92 04/28/2024 1:56 PM EST Temperature 36 ??C (96.8 ??F) 12/20/2023 12:56 PM EDT Respiratory Rate 17 12/20/2023 12:56 PM EDT Oxygen Saturation 97% 12/27/2023 11:09 AM EDT Inhaled Oxygen Concentration - - Weight 61.2 kg (135 lb) 04/28/2024 1:56 PM EST Height 154.9 cm (5' 1) 04/28/2024 1:56 PM EST Body Mass Index 25.51 04/28/2024 1:56 PM EST Plan of Treatment Health Maintenance Due Date Last Done Comments CT Colonography 1940 Colonoscopy 1941 Colorectal Cancer Screening 1940 FIT DNA 1941 FIT 1940 Sigmoidoscopy (10 year) with FIT yearly 1940 Sigmoidoscopy 1940 Pneumoccocal Vaccine: 50+ (1 of 2 - PCV) 1960 Tetanus/Diphtheria/Pertussis [...] Comments US ABDOMEN LIMITED HEPATOLOGY PROTOCOL Routine 04/28/2024 11:13 AM EST Hepatic cirrhosis, unspecified hepatic cirrhosis type, unspecified whether ascites present XR CHEST PA AND LATERAL STAT 03/17/2024 4:20 PM EST MANAGER DATA WAREHOUSE CYTOLOGY FINAL REPORT Routine 07/08/2012 8:27 PM EDT from Last 3 Months or Most Recently Relevant to Health Maintenance Results * US Abdomen Limited Hepatology Protocol (04/28/2024 11:13 AM EST) WORKSTATION ID [id number] RAD Anatomical Region Laterality Modality Abdomen Ultrasound 04/28/2024 11:0 5 AM EST Impressions 04/28/2024 11:49 AM EST 1. Enlarged liver with coarse echogenic parenchyma and capsular nodularity, consistent with cirrhosis and likely steatosis. No focal hepatic parenchymal lesion. 2. Normal directional flow through the main portal vein. 3. Splenomegaly measuring 16.7 cm, possibly sequelae of portal hypertension. No ascites. 4. Surgically absent gallbladder. Normal common bile duct diameter. I have personally reviewed the image(s) and the resident's interpretation and agree with the findings, Jean Claude Bautista MD at 04/28/2024 11:40 AM Electronically signed by: Jean Claude Bautista MD, [facility] ([phone]), at 04/28/2024 11:40 AM Thank you for letting us participate in the care of this patient. If you are a health care provider and have any questions regarding this report, please contact the number above. For patients who have questions, please contact the health rn wound care that requested your imaging first. ?Jean Claude Bautista, Staff Physician Electronically Signed Final Report ?? 04/28/2024 11:48 am Narrative 04/28/2024 11:49 AM EST Abdominal ? (Signed Final 04/28/2024 11:48 am) PATIENT INFO: ID #: ? [id number] ?: ??[birth year] (83 yrs)(F) Name: ? NICK MENDIETA ?Visit Date: 04/28/2024 11:05 am PERFORMED BY: Attending: ?Lily GALLO, Jean Claude Lancaster Resident: ? Jake Novak MD Performed By: ? Monika Gibbs RDMS Referred By: ?LANI WALLIS Secondary Phy.: ?? LANI WALLIS FINGER [employer]AVER Location: ? [place] [facility] Protocol - Abdominal ?01779 Limited Survey Single Organ or Quadrant - [id number] INDICATIONS: cirrhosis, screen for hcc ------ LIVER: ------ Right Lobe Length: ?? 20.1 ?? cm Echogenicity/Echotexture: ?? Coarse parenchyma with capsular ? nodularity Portal Veins: ?Hepatopetal Comment: ?No focal lesion seen. GALLBLADDER: Cholelithiasis: ?Surgically absent Focal Tenderness: ?Negative sonographic Marino's sign BILIARY TRACT: Intrahepatic Ducts: ?? Normal Extrahepatic Ducts: ?? Normal as seen Common Duct Size: ? 5.5 ? mm ------- SPLEEN: ------- Size (cm) ?L: ??16.5 ?AP: ??16.7 ?TV: ??5.9 Vol (ml): ?851.2 Comment: ?Splenomegaly FLUID COLLECTIONS: Ascites not present on 4 quadrant evaluation. Procedure Note Jean Claude Bautista MD - 04/28/2024 Abdominal (Signed Final 04/28/2024 11:48 am) PATIENT INFO: ID #: [id number] : [birth year] (83 yrs)(F) Name: NICK MENDIETA Visit Date: 04/28/2024 11:05 am PERFORMED BY: Attending: Jean Claude Bautista MD Resident: Jake Novak MD Performed By: Monika Gibbs RDMS Referred By: LANI WALLIS [facility] Phy.: LANI WALLIS APRN Location: [place] SERVICE(S) PROVIDED: [facility] - Hepatology Protocol - Abdominal 03576 Limited Survey Single Organ or Quadrant - [id number] INDICATIONS: cirrhosis, screen for hcc ------ LIVER: ------ Right Lobe Length: 20.1 cm Echogenicity/Echotexture: Coarse parenchyma with capsular nodularity Portal Veins: Hepatopetal Comment: No focal lesion seen. GALLBLADDER: Cholelithiasis: Surgically absent Focal Tenderness: Negative sonographic Marino's sign BILIARY TRACT: Intrahepatic Ducts: Normal Extrahepatic Ducts: Normal as seen Common Duct Size: 5.5 mm ------- SPLEEN: ------- Size (cm) L: 16.5 AP: 16.7 TV: 5.9 Vol (ml): 851.2 Comment: Splenomegaly FLUID COLLECTIONS: Ascites not present on 4 quadrant evaluation. IMPRESSION 1. Enlarged liver with coarse echogenic parenchyma and capsular nodularity, consistent with cirrhosis and likely steatosis. No focal hepatic parenchymal lesion. 2. Normal directional flow through the main portal vein. 3. Splenomegaly measuring 16.7 cm, possibly sequelae of portal hypertension. No ascites. 4. Surgically absent gallbladder. Normal common bile duct diameter. I have personally reviewed the image(s) and the resident's interpretation and agree with the findings, Jean Claude Bautista MD at 04/28/2024 11:40 AM Electronically signed by: Jean Claude Bautista MD, [facility] ([phone]), at 04/28/2024 11:40 AM Thank you for letting us participate in the care of this patient. If you are a health care provider and have any questions regarding this report, please contact the number above. For patients who have questions, please contact the health rn wound care that requested your imaging first. Jean Claude Bautista, Staff Physician Electronically Signed Final Report 04/28/2024 11:48 am Lani Wallis APRN IMG US GEN ORDERAB LES * XR Chest PA & Lateral (Generic) (03/17/2024 4:20 PM EST) PT CLASS E RAD ADMITDTTM [id number] RAD PT [facility] INFO [id number]^KEYANA^C HELSEA^L RAD EXAM DESC XCXR2^XR CHEST 2V PA AND LATERAL^RIS RAD WORKSTATION ID [id number] RAD Anatomical Region Laterality Modality Chest N/A Radiographic Marlee ging Impressions 03/17/2024 4:28 PM EST Stable interval exam, no evidence of pneumonia. Thank you for letting us participate in the care of this patient. ??If you are a health care provider and have any questions regarding this report, please contact the number below. ??For patients who have questions please contact the health rn wound care that requested your imaging first. ? Electronically signed by: Avila Keith MD, [facility] ([phone]), at 03/17/2024 4:28 PM Narrative 03/17/2024 4:28 [...] patients who have questions please contactthe health rn wound care that requested your imaging first. Electronically signed by: Avila Keith MD, [facility]([phone]), at 03/17/2024 4:28 PM Zoe Nicki FINGER WAVER IMG DX ORDERABLES * Smalltalk Developer Cytology Final Report (07/08/2012 8:27 PM EDT) Smalltalk Developer Cytology Final Report ? [facility] ? Provider: ?? MOE WATSON, ??Pt. Name: ?? ANAM NICK ?LOULOU ? Acc #: ?[id number] ?Pt. ? Col Date: ?? 07/08/2012 ?/Sex: ?1940,(72 years),Female ? Rec Date: ?? 07/08/2012 ?LOC: ?5L ? CYTOPATHOLOGY: ??MANAGER DATA WAREHOUSE ? ---Adequacy--- ? Specimen submitted is satisfactory. Vaginal Only. ? ---Cytopathologic Diagnosis--- ? NORMAL ? Negative for Intraepithelial Lesion or Malignancy (NILM). ? 07/09/12 ?? Screened by: ??LMY ??SLA ? 07/10/12 ?? Verified by: ??ABDON Munoz(ASCP), Stefany Rivera - ? Armature Inspector ? ---Clinical Information--- ? HPV Option: ? No HPV Testing ? Preparation: ?Liquid Based Pap ? Specimen Source: ?Vaginal only/LBP/Diagnostic ? LMP: ?Post menopausal, hx bladder cancer, new posterior ? wall bladder lesion ? Hormones?: ?No ? Hysterectomy?: ?Total Hysterectomy ?: ?No ?: ?No ? I.U.D.?: ?No ? Pelvic Radiation: ? No ? Prior MANAGER DATA WAREHOUSE Therapy?: ? No ? Hist Abnl Pap/Biopsy?: [...] ??For further ? information please contact the [facility]. ? Reference: ??Abkarie CS. ??Yard Manager of Pap Smear Results. ??In: ? Rosy BS, [facility] [facility], ed. ??The Pap Smear. ??[place]: ??Pino, 2002: ? 71-77. JORY MAYFIELD 07/08/2012 8:27 PM EDT Loulou Watson MD PATHOLOGY/C YTOLOGY ORDERABLES JORY MAYFIELD from Last 3 Months or Most Recently Relevant to Health Maintenance Care Teams Claims Assistant Relationship Specialty Start Date End Date Aysha Johnson MD [address] [place] [address] PCP - General Family Medicine 12/12/23
--- OUTSIDE RECORDS SUMMARY | 2024-05-18 16:54 | XMS_ITS | Continuity of Care Document ---
Author Organization [place] - [facility] Address [address] [place] [address] Care Team Providers Care Mailing Machine Helper Name Role Phone CRYSTAL MCCORMACK Business Account Leader LANI WALLIS Telephone Operator Chief Assessment No assessment recorded. Plan of Treatment Reminders Order Date Submit Date Provider Last Modified By Organization Details Last Modified Time Details Appointments Acute 30 2024 04:00P M RICARDO RUTLEDGE Not available Not available Not available Follow Up 2024 11:00A M RUPAL ERAN Not available Not available Not available Lab BMP, serum or plasma 2023 024 [email or web address] [facility] (Registration ), [address] [place] [address] [place], [address], 03/30/2024 07:17:36 BMP, serum or plasma 2023 024 [email or web address] [facility] (Registration ), [address] [place] [address] [place], [address], 03/31/2024 12:02:32 Referral None recorde d. Procedures None recorde d. Surgeries None recorde d. Imaging None recorde d. Medication Orders None recorde d. Patient TargetsNo targets recorded. Patient InstructionsNo instructions recorded. Reason for Referral None Reported. Results Created Date Observation Date Name Description Value Unit Range Abnormal Flag Note LastModifiedBy Organization Detail LastModifiedTime 03/17/20 24 03/17/2024 xr chest 2V Pa and later al [facility] RADIOL OGY [place] [id number] RADIOL OGY TRANSC RIPTIO N REPORT _ Patien t Name: CRISTEL SEGUNDO MRN: Sex: : Age: [id number] F [id number] Accoun t: Access ion: Admit: StayTy pe: [id number] 210 2023 E Enrikee d: Order ID: Submit nate: David Klein er: 2023 16:03 [id number] Zoey MOSLEY nate: Techno logist : Result [...] ons please contac t the health care [facility] that reques nate your joein g first. Electr onical ly signed by: Kimberly Keith MD [facility] sohan ji ([phone]), at 2023 4:28 PM INTERFACE [facility] (Lab) [address] [place] [address], [address], 03/17/2024 16:35:27 03/17/20 24 03/17/2024 EKG order yony ng 12 lead [facility] [address] EKG TRANSC FOZIA Ji REPORT _ Accoun t: Access ion: Admit: StayTy pe: [id number] 210 2023 E/R Observ ation: Order ID: Submit nate: David aly Provid er: 2023 16:34 [id number] KIN BOYLE _ [place] [id number] [facility] Test Date: 2023-04 Pat Name: KAYLEE Khan Depart ment: Brice bermudez ID: [id number] Room: Gender : Yue Reardon perri: jr : 1941-0 -17 Reques nate By: FRANC Yanes Order Number : [id number] Kelby mcdaniels MD: Jung Corona Measur ements Interv als [place] Rate: 109 P: 57 SC: 182 QRS: -22 QRSD: 92 T: 0 QT: 328 QTc: 441 Interp retive Statem ents Sinus tachyc ardia Poor R wave progre ssion, likely due to lead placem ent Compar ed to ECG 2023 09:24: 01 Sinus rhythm no longer presen t Electr onical ly Signed On 2023 19:33: 53 EST by Jung CASANOVA [facility] (Lab) [address] [place], [address], 03/17/2024 19:35:41 05/07/1911/06/2016 DEXA No observ ation record ed. [email or web address] [facility] - Radiology [address] [place], [address], 05/07/2024 10:15:11 Result Notes None recorded. Problems Name Problem SNOMED Code Status Onset Date Resolution Date Notes Provider Name and Address Organization Details Recorded Time Acute lower respirat ory tract infectio n 639701226 Completed 202303/27/[address], [place], [address] , [facility] 14:21:53 Acute confusio n 998719618 Completed 202303/27/[address], [place], [address] , [facility] 4 14:21:53 Chronic cough 14917079 Active [address], [place], [address] , [facility] 5 14:11:35 Dysuria 31837868 Active 2024 Problem Code: R30.0; Problem Code Type: ICD-10; MD Livan RODR[address]UEZ Dr, [place], [address] , [facility] 5 14:40:58 Dry lips 093903177 Active [address], [address] 15:15:20 Loose stool 464038566 Active [address], [address] 15:16:13 Encopres is 516911016 Active [address], [address] 15:16:22 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 997446143 Active [address], [address] 15:16:36 Clostrid ium difficil e colitis 681377697 Active [address], [address] 13:21:24 Pruritic rash 54725262 Active [address], [address] 13:21:36 Dizzines s 561560764 Active [address], [address] 13:23:52 [facility]ia l hyperten eugene 06828336 Completed 201305/13/2023 Problem Code: I10; Problem Code Type: ICD-10; MD Livan RODRIGUEZ Dr, [address] 4 13:45:04 Migraine 81128678 Active 2013 Gail rodriguez, [facility] 4 12:45:27 History of disorder of digestiv e system 463059124 Completed 201305/13/2023 Problem Code: Z87.19; Problem Code Type: ICD-10; RUPAL BARILLAS MD [address], [place], [address] , [facility] 4 13:45:04 Restless legs 73948700 Active 2013 Gail Lavern rodriguez [facility] 4 12:48:18 Disorder of nervous system due to type 2 diabetes mellitus 304681904 Completed 201305/13/2023 04/27/19 20 - Comments only [...] Code Type: ICD-10; MD Livan RODRIGUEZ Dr, [place], [address] , [facility] 4 13:45:04 Allergic rhinitis 60251760 Completed 201305/13/2023 Problem Code: J30.9; Problem Code Type: ICD-10; MD Livan RODRIGUEZ Dr, [place], [address] , [facility] 4 13:45:04 Mixed hyperlip idemia 181933715 Active 2013 Gail rodriguez [facility] 4 12:45:48 Neuropat hy due to type 2 diabetes mellitus 17101903574 9106 Active 2013 Gail Lavern [facility] 4 12:46:16 Intolera nce to lactose 216897459 Completed 201305/13/2023 Problem Code: E73.9; Problem Code Type: ICD-10; RUPAL BARILLAS MD [address], [place], [address] , [facility] 4 13:45:04 Heart murmur 55811082 Active [address], [facility] [address] , [facility] 4 06:52:52 History of malignan t neoplasm of bladder 156255670 Active 2013, recurren ce 2008, Dr. Boykin, chemo instilla tion, straight caths [facility] 4 12:43:10 History of nutritio nal disorder 379820080 Completed 201405/13/[address], [place], [address] , [facility] 4 13:45:04 Irritabl e bowel syndrome 00688674 Active 2014 [facility] 4 12:45:06 Eczema 40707178 Active 2014 [facility] 4 12:38:10 Hernia of abdomina l cavity 20654196 Active 2015 [facility] 4 12:41:15 Cirrhosi s of liver 48455194 Completed 201505/13/2023 09/22/19 20 - Comments only - Nat Bryant M.D. - Has gained some weight, and possibly has ascites, although I have never examined her before. Follow-u p as planned tomorrow for imaging, labs, and speciali [facility] ent at [facility]. Problem Code: K74.69; Problem Code Type: ICD-10; MD Livan RODRIGUEZ Dr, [address] 4 13:45:04 History of urinary tract infectio n 67033236451 07 Completed 201505/13/2023 08/03/19 16 - Comments [...] Code Type: ICD-10; MD Livan RODRIGUEZ Dr, [address] 4 13:45:04 Screenin g for malignan t neoplasm of breast Completed 201505/13/2023 Problem Code: Z12.39; Problem Code Type: ICD-10; MD Livan RODRIGUEZ Dr, [address] 4 13:45:04 Candidia sis of vagina 30830235 Completed 201505/13/2023 Problem Code: B37.3; Problem Code Type: ICD-10; MD Livan RODRIGUEZ Dr, [address] 4 13:45:04 Portal hyperten eugene 29361427 Active 2015 no ascites or encephal opathy, EGD 2015 (gastric ulcer) Gail rodriguez, [facility] 4 12:47:45 Genitour inary symptoms 522731277 Completed 201504/17/2016 Problem Code: R39.89; Problem Code Type: ICD-10; Not Available [facility] 3 04:10:10 Screenin g for malignan t neoplasm of colon Completed 201605/13/2023 Problem Code: Z12.11; Problem Code Type: ICD-10; MD Livan RODRIGUEZ Dr, [facility] [address] , [facility] 4 13:45:04 Pneumoni a 106532974 Completed 201602/15/2017 02/12/20 17 - Improved - 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 - s/p tx with azithrom ycin pt signific antly improved RTC if sx worsen/p ersist Problem Code: J18.9; Problem Code Type: ICD-10; MD Livan RODRIGUEZ Dr, [facility] [address] , [facility] 4 14:21:53 Orthosta tic hypotens ion 30376325 Active 2017 [facility] 4 12:46:41 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 29741004 Active 2018 small endoscop y 2019 [facility] repeat one year [facility] 4 12:39:42 Hepatic failure 69847045 Completed 201805/13/2023 Problem Code: K72.90; Problem Code Type: ICD-10; MD Livan RODRIGUEZ Dr, [place], [address] , [facility] 4 13:45:04 Acute upper respirat ory infectio n 45355782 Completed 201811/08/2018 Problem Code: J06.9; Problem Code Type: ICD-10; MD Livan RODRIGUEZ Dr, [facility] [address] , [facility] 4 13:45:04 Proteinu vinod 00776314 Completed 201805/13/2023 Problem Code: R80.9; Problem Code Type: ICD-10; MD Livan RODRIGUE[address] Dr, [place], [address] , [facility] 4 13:45:04 Hyperlip idemia 17457964 Active 2018 [place] La[place] null, [facility] 4 12:44:49 Gastroes ophageal reflux disease without esophagi tis 351101910 Active 2019 Gail Lavern null, [facility] 4 12:39:54 Urinary tract infectio us disease 42945475 Completed 201909/29/2019 09/22/19 20 - Comments only [...] N39.0; Problem Code Type: ICD-10; Not Available [facility] 3 04:10:12 Nervous system and sense organ diseases 482276687 Completed 202005/13/[address], [place], [address] , [facility] 4 13:45:04 Fall on or from stairs or steps Completed 202005/27/2020 Problem Code: W10.9xxA ; Problem Code Type: ICD-10; Not Available [facility] 3 04:10:12 Knee joint effusion 181357693 Completed 202006/06/2020 Problem Code: M25.469; Problem Code Type: ICD-10; Not Available [facility] 3 04:10:13 Low back pain 839131161 Completed 202006/20/2020 Problem Code: M54.5; Problem Code Type: ICD-10; INDIRA YEN Dr, [facility] [address] [place] [address] 4 14:31:55 Dysuria 84450466 Completed 202009/03/2020 Problem Code: R30.0; Problem Code Type: ICD-10; MD Livan RODRIGUEZ Dr, [facility] [address] [place] [address] 5 14:40:58 Psychoph ysiologi c insomnia 808024652 Active 2020 Insomnia , chronic Gail Puckett [facility] 4 12:48:07 Dizzines s and giddines s 463618708 Completed 202010/31/2020 Problem Code: R42; Problem Code Type: ICD-10; Not Available [facility] 3 04:10:14 Atrophic vaginiti s 23855587 Active 2020 Gail Fregosoeri [facility] 4 12:37:19 Urinary tract infectio us disease 76195267 Completed 202003/03/2021 Problem Code: N39.0; Problem Code Type: ICD-10; Not Available [facility] 3 04:10:14 Disorder of hematopo ietic structur e 639694289 Completed 202105/13/2023 Problem Code: D75.89; Problem Code Type: ICD-10; MD Livan RODRIGUEZ Dr, [facility] [address] [facility] 4 13:45:04 Tension- type headache 123329027 Completed 202105/13/2023 Problem Code: G44.209; Problem Code Type: ICD-10; MD Livan RODRIGUEZ Dr, [facility] [address] [facility] 4 13:45:04 Acute conjunct ivitis of left eye 21964879924 9105 Completed 202112/19/2021 12/13/19 22 - Comments only - Nat Bryant M.D. - Likely bacteria l. Rx sent for e-mycin ointment . Call for reevalua tion if worsenin g, or no better w/in 48 hours. Problem Code: H10.32; Problem Code Type: ICD-10; Not Available [facility] 3 04:10:15 Cerebrov ascular disease 79413494 Active 2021 [facility] 4 12:37:49 Urinary tract infectio us disease 25984872 Completed 202208/28/2022 Problem Code: N39.0; Problem Code Type: ICD-10; Not Available [facility] 3 04:10:15 Pneumoni a 737080996 Completed 202211/08/2022 10/30/19 23 - Improved - [...] ICD-10; RUPAL BARILLAS MD [address], [place], [address] , [facility] 4 14:21:53 Edema 744540121 Active 2022 Peripher al edema [facility] 4 12:38:42 Castillo' s esophagu s 875203750 Active 2022 [facility] 4 12:37:33 Candidia sis of skin 39561163 Completed 201810/23/2022 Problem Code: B37.2; Problem Code Type: ICD-10; Not Available [facility] 3 04:10:16 Acute atopic conjunct ivitis 32562765 Completed 201804/21/2019 Problem Code: H10.10; Problem Code Type: ICD-10; Not Available [facility] 3 04:10:16 Constipa tion 22789136 Completed 201301/02/2023 Problem Code: K59.00; Problem Code Type: ICD-10; Not Available [facility] 3 04:10:16 Cough 58107011 Completed 202201/02/2023 Problem Code: R05.8; Problem Code Type: ICD-10; RUPAL BARILLAS MD [address], [place], [address] , [facility] 4 14:21:53 Hyperten sive disorder 64536757 Completed 201301/02/2023 Not Available [facility] 3 04:10:17 Neoplasm of urinary bladder 517400342 Completed 201301/02/2023 Problem Code: D49.4; Problem Code Type: ICD-10; Not Available [facility] 3 04:10:17 Enthesop athy 08844742 Completed 201812/26/2020 Problem Code: M77.9; Problem Code Type: ICD-10; Not Available [facility] 3 04:10:17 Hypercal cemia 32120917 Completed 201401/02/2023 Not Available [facility] 3 04:10:18 Lung field abnormal 421663871 Completed 201607/29/2017 Problem Code: R91.8; Problem Code Type: ICD-10; Not Available [facility] 3 04:10:18 Insomnia 839386019 Completed 201906/06/2021 Problem Code: F51.09; Problem Code Type: ICD-10; Not Available [facility] 3 04:10:18 Disorder of lung 86096333 Completed 201710/23/2022 Problem Code: J98.4; Problem Code Type: ICD-10; Not Available [facility] 3 04:10:18 Type 2 diabetes mellitus without complica tion 084943283 Completed 201301/02/2023 Problem Code: E11.9; Problem Code Type: ICD-10; INDIRA W[address], [place], [address] , [facility] 4 15:17:00 Pain of left shoulder joint 54822625466 274971 Completed 201406/06/2021 Problem Code: M25.512; Problem Code Type: ICD-10; Not Available [facility] 3 04:10:19 Screenin g for osteopor osis Completed 201602/11/2017 Problem Code: Z13.820; Problem Code Type: ICD-10; Not Available [facility] 3 04:10:19 Inflamed seborrhe ic keratosi s 794753704 Completed 201910/23/2022 Problem Code: L82.0; Problem Code Type: ICD-10; Not Available [facility] 3 04:10:20 Disorder of brain 38307313 Completed 202103/05/2022 Problem Code: G93.40; Problem Code Type: ICD-10; Not Available [facility] 3 04:10:20 Other idiopath ic peripher al neuropat hy NOS Completed 201301/02/2023 Not Available [facility] 3 04:10:20 Obesity 294801986 Completed 201301/02/2023 Not Available [facility] 3 04:10:20 Fatigue 56354388 Completed 201810/27/2018 Problem Code: R53.83; Problem Code Type: ICD-10; Not Available [facility] 3 04:10:21 Genitour inary symptoms 889762401 Completed 201904/04/2020 Problem Code: R39.9; Problem Code Type: ICD-10; Not Available [facility] 3 04:10:21 Benign paroxysm al position al vertigo 206130292 Completed 202001/02/2023 Problem Code: H81.10; Problem Code Type: ICD-10; Not Available [facility] 3 04:10:22 Disorder of skin and/or subcutan eous tissue 49186439 Completed 201904/04/2020 Problem Code: L98.9; Problem Code Type: ICD-10; Not Available [facility] 3 04:10:22 Osteophy te of bone 52505118943 9100 Completed 201906/28/2020 Problem Code: M25.776; Problem Code Type: ICD-10; Not Available [facility] 3 04:10:22 Gastric ulcer 143923693 Completed 201501/02/2023 Problem Code: K25.9; Problem Code Type: ICD-10; Not Available [facility] 3 04:10:22 Right side sciatica 71659984939 9101 Completed 201804/21/2019 Problem Code: M54.31; Problem Code Type: ICD-10; Not Available [facility] 3 04:10:23 Candidia sis 22912958 Completed 201308/22/2015 Problem Code: B37.9; Problem Code Type: ICD-10; Not Available [facility] 3 04:10:23 Steatosi s of liver 395793021 Completed 201302/10/2016 Problem Code: K76.0; Problem Code Type: ICD-10; Not Available [facility] 3 04:10:23 Cough 62364405 Completed 201912/26/2020 Problem Code: R05; Problem Code Type: ICD-10; RUPAL BARILLAS MD [address], [place], [address] , [facility] 4 14:21:53 Xerostom ia 54620075 Completed 202006/06/2021 Problem Code: R68.2; Problem Code Type: ICD-10; Gail rodriguez [facility] 4 12:49:03 Candidal vulvovag initis 31265740 Completed 201301/02/2023 Problem Code: 112.1; Problem Code Type: ICD-9; Not Available [facility] 3 04:10:25 Intestin al disaccha ridase deficien cy 08527676 Completed 201301/02/2023 Problem Code: 271.3; Problem Code Type: ICD-9; Not Available [facility] 3 04:10:25 Acute bronchit is 41514332 Completed 201912/26/2020 Problem Code: J20.9; Problem Code Type: ICD-10; Not Available [facility] 3 04:10:26 Peripher al nerve disease 973730382 Completed 201301/02/2023 Not Available [facility] 3 04:10:26 Acute upper respirat ory infectio n 13940623 Completed 202205/13/2023 Problem Code: J06.9; Problem Code Type: ICD-10; MD Livan RODRIGUEZ Dr, [facility] [address] , [facility] 4 13:45:04 Diastoli c heart failure 575854186 Active 2022 echo 03/[address], [facility] [address] , [facility] 3 11:17:46 Chest pain 07820075 Completed 202205/13/2023 Problem Code: R07.89; Problem Code Type: ICD-10; MD Livan RODRIGUEZ Dr, [facility] [address] , [facility] 4 13:45:03 Aortic stenosis , non-rheu matic 889102566 Active 2022 mild 03/2023 echo MD Livan RODR[address]UEZ Dr, [facility] [address] , [facility] 4 06:52:21 Senile hyperker atosis 821403372 Completed 202205/13/2023 Problem Code: L82.1; Problem Code Type: ICD-10; MD Livan RODRIGUEZ Dr, [address] 13:45:03 Melanocy tic nevus 657220169 Completed 202205/13/2023 Problem Code: D22.9; Problem Code Type: ICD-10; MD Livan RODRIGUEZ Dr, [place] [address] , [facility] 13:45:04 Incoordi [facility] 526527022 Completed 202205/13/2023 01/31/20 23 - Comments only - Rupal Barillas MD - neuro exam not c/w CVA; will eval further at next visit. Problem Code: R27.9; Problem Code Type: ICD-10; MD Livan RODRIGUEZ Dr, [address] 13:45:03 Dyspnea 753796851 Completed 202205/13/2023 Problem Code: R06.09; Problem Code Type: ICD-10; MD Livan RODRIGUEZ Dr, [address] 13:45:03 Chronic diarrhea 932286196 Active 2023 Gail rodriguez, [facility] 12:37:57 Drug-ind uced xerostom ia 662277897 Active [address], [address] 13:38:38 Microalb uminuric diabetic nephropa thy 915694665 Active 2023 Gail rodriguez, [facility] 04/25/202 4 12:45:11 Dyspnea on exertion 41830471 Active 2023 [facility] 4 12:37:57 Angular cheiliti s 657036098 Active 2023 [facility], [facility] 4 12:36:56 Xerostom ia 92010887 Active 2023 [facility] 4 12:49:03 History of adenomat ous polyp of colon 102962680 Active 2020 [facility] 12:43:44 Sialoade nitis 78425230 Completed 202308/09/[address], [facility] [address] , [facility] 16:48:36 Low back pain 575645102 Active 2023 Problem Code: M54.5; Problem Code Type: ICD-10; INDIRA YEN Dr, [place], [address] , [facility] 14:31:55 Chest pain on exertion 57936643 Active [address], [place], [address] , [facility] 12:24:41 Always hungry 474286877 Active [address], [place], [address] , [facility] 16:38:32 Altered bowel function 56225305 Active [address], [place], [address] , [facility] 16:38:44 Atypical chest pain 822036574 Active 2023 DORIS JONES MA null, [facility] 4 07:31:04 Acquired thromboc ytopenia 57915044 Active [address], [address] 4 09:56:08 Actinic keratosi s 441531154 Active [address], [address] 4 13:34:57 Nodule of lung 746185389 Active 2023 probable lipoma by PET. (benign) MD Livan RODRIGUEZ Dr, [address] 4 06:49:28 Minimal cognitiv e impairme nt 323027515 Active [address], [address] 4 15:05:52 New daily persiste nt headache 68158333565 9105 Active [address], [address] 4 16:29:33 Lichen sclerosu s of vulva 060916200 Active [address], [address] 4 15:22:25 Milia 248824114 Active [address], [address] 4 15:51:39 Obstruct keshia sleep apnea syndrome 16233397 Active 2023 DORIS JONES MA null, [facility] 4 09:39:29 Atherosc lerosis Active 2023 DORIS JONES MA null, [facility] 4 09:39:44 Cirrhosi s - non-alco holic 722353342 Active 2023 with esoph varices and low PLT but no ascites, jaundice or sx. MD Livan RODRIGUEZ Dr, [facility] [address] , [facility] 4 06:56:02 Vulvitis 14363332 Active [address], [place] [address] , [facility] 4 13:20:01 Thromboc ytopenic disorder 551164943 Active [address], [facility] [address] , [facility] 4 13:23:28 Decompen sated cirrhosi s of liver 679276217 Active [address], [facility] [address] , [facility] 4 14:23:47 Type 2 diabetes mellitus without complica tion 247570646 Active 2023 Problem Code: E11.9; Problem Code Type: ICD-10; INDIRA WATSON Dr, [facility] [address] , [facility] 4 15:17:00 Coronary arterios clerosis 11241164 Active 2023 DORIS JONES MA null, [facility] 4 12:31:32 Hyperpig mentatio n of skin 97407165 Active [address], [facility] [address] , [facility] 4 15:19:42 Pneumoni a 883168043 Completed 202303/27/2024 10/30/19 23 - Improved - [...] Code Type: ICD-10; MD Livan RODRIGUEZ Dr, [facility] [address] [place] [address] 14:21:53 Cough 96599170 Completed 202303/27/2024 Problem Code: R05.8; Problem Code Type: ICD-10; MD Livan RODRIGUEZ Dr, [address] 14:21:53 Notes:Some problems listed i n Document: #[id number] could not be added to this patient's chart. Please review this document and add these problems to the patient's chart manually as needed. Problem Notes None recorded. Procedures Surgical History Date Name Laterality Status Provider Name and Address Organization Details Recorded Time 4 Cryosurgery Multiple Actinic Keratoses completed MD Livan RODRIGUEZ Dr, [facility] [address], [facility] 03/06/2024 11:24:31 4 Cryosurgery Warts/Skin Tags completed MD Livan RODRIGUEZ Dr, [facility] [address] 10/18/2023 15:47:48 4 Cryosurgery Warts/Skin Tags completed MD Livan RODRIGUEZ Dr, [facility] [id number] [place] [address] 10/07/2023 13:34:27 Imaging Results None recorded. Procedure Notes None recorded. Medical Equipment None Reported. Allergies Allergen ID Allergen Name Allergen Category Reaction Reaction Severity Criticality Documentation Date Start Date Code Code System Note Provider Name and Address Organization Details Recorded Time 35421 erythromy laura medicatio n other moderate Not available 02/15/20232013 4053 RxNorm stoma ch pain [facility] 4 12:53:11 18641 Bactrim medicatio n itching moderate Not available 08/01/20232013 28357 9 RxNorm itchy skin [facility] 4 12:51:33 16807 codeine medicatio n itching moderate Not available 08/01/20232013 2670 RxNorm itchy , paran oid [facility] 4 12:52:07 44261 Demerol medicatio n other moderate Not available 08/01/20232013 13897 1 RxNorm can' t sleep [facility] 4 12:52:55 03663 simvastat in medicatio n nausea moderate Not available 08/01/20232013 33172 RxNorm (ALLS TATIN S) [facility] 4 12:53:40 19880 Trulicity medicatio n vomiting moderate low 09/25/2023 06686 96 RxNorm RUPAL BARILLAS MD [address], [place], [address] [place] [address] 4 12:57:22 Medications Name Sig Start Date [...] day by oral route. 03/19 completed brice admtariqio n for hypokale morro Not Available Not [...] once a day 12/[address] Wallis, [facility], after August 2022 OV Not Available Not Available Not Available gabapenti n 800 mg tablet Take 1 tablet by mouth three times a day 2019 active Not Available Not Available Not Avai lable SevconToYoutuo Ultra Test strips USE 1 STRIP VIA [...] Relief 50 mcg/actua tion nasal spray,moraima pension [place] 1 spray into both nostrils once a [...] Status Never Smoker MARY PRETTY MA null, [place] [facility]. 03/18/2023 15:57:23 Would You Say That, In General, Your Health Is Good [email or web address] Information not available 08/09/2023 How Often Does Anyone, Including Family, Physically Hurt You? Never [email or web address] Information not available 08/09/2023 How Often Does Anyone, Including Family, Insult Or Talk Down To You? Rarely [email or web address] Information no t available 08/09/2023 How Often Does Anyone, Including Family, Threaten You With Harm? Never [email or web address] Information not available 08/09/2023 How Often Does Anyone, Including Family, Scream Or Curse At You? Never [email or web address] Information not available 08/09/2023 Within The Past 12 Months, You Worried That Your Food Would Run Out Before You Got Money To Buy More. Never True Information n ot available 08/09/2023 Within The Past 12 Months, The Food You Bought Just Didn't Last And You Didn't Have Money To Get More. Never True [email or web address] Information not available 08/09/2023 How Hard Is It For You To Pay For The Very Basics Like Food, Housing, Medical Care, And Heating? Would You Say It Is: Somewhat Hard [email or web address] Information not available 08/09/2023 In The Past 12 Months, Has Lack Of Reliable Transportation Kept You From Medical Appointments, Meetings, Work Or From Getting Things Needed For Daily Living? No [email or web address] Information not available 08/09/2023 What Is Your Housing Situation Today? I Have Housing. [email or web address] Information not available 08/09/2023 How Often In The Past Year Have You Used Marijuana (including Smoking, Vaping, Dabbing, Or Edibles)? Never [email or web address] Information not available 08/09/2023 How Often In The Past Year Have You Used Prescription Medications That Were Not Prescribed To You? Never [email or web address] Information not available 08/09/2023 How Often In The Past Year Have You Taken Your Own Prescription Medication More Than The Way It Was Prescribed Or For Different Reasons Than Its Intended Purpose? Never [email or web address] Information not available 08/09/2023 How Often In The Past Year Have You Used Other Drugs (for Example, Heroin, Cocaine, Meth, Salvia, Inhalants)? Never [email or web address] Information not available 08/09/2023 Have You Ever Used IV Drugs? No [email or web address] Information not available 08/09/2023 Date Of Most Recent SBINS 08/09/2023 [email or web address] Information not available 08/09/2023 What Was The Date Of Your Most Recent Tobacco Screening? 10/18/2023 Information n ot available 10/18/2023 Has Tobacco Cessation Counseling Been Provided? No [email or web address] Information not available 10/25/2023 Do You Or Have You Ever Used Any Other Forms Of Tobacco Or Nicotine? No [email or web address] Information not available 03/18/2023 Sex: Female Functional Status None recorded. Mental Status None recorded. Family History Relationship Description Onset Age of this Age Resolved Age Notes LastModified by Organization Details LastModified Time Mother Family history of acute medical disorder [email or web address] Not available 2022 03:54:47 Notes:*Problem: Mother: d. [...] PF 4 completed MARY PRETTY [place] null[place] [facility]. 01/09/2024 16:25:43 COVID-19, mRNA, LNP-S, PF, mayito-sucrose, 30 mcg/0.3 mL 4 completed MARY PRETTY MA null, [place] [facility]. 01/09/2024 16:25:43 Td (adult), 2 Lf tetanus toxoid, preservative free, adsorbed 7 completed Not Available [facility] 02/15/2023 05:29:32 Hep A-Hep B 7 completed Not Available [facility] 02/15/2023 05:29:32 Hep A-Hep B 6 completed Not Available [facility] 02/15/2023 05:29:32 Tdap 7 completed Not Available [facility] 02/15/2023 05:29:32 Pneumococcal conjugate PCV 13 7 completed Not Available [facility] 02/15/2023 05:29:32 Td(adult) unspecified formulation 6 completed Not Available [facility] 02/15/2023 05:29:32 Influenza, split virus, trivalent, preservative 6 completed Not Available [facility] 02/15/2023 05:29:32 Influenza, split virus, trivalent, preservative 5 completed Not Available [facility] 02/15/2023 05:29:32 Influenza, split virus, quadrivalent, PF 2 completed Not Available [facility] 02/15/2023 05:29:33 Influenza, split virus, quadrivalent, PF 3 completed Not Available [facility] 02/15/2023 05:29:33 Influenza, split virus, quadrivalent, preservative 7 completed Not Available [facility] 02/15/2023 05:29:33 Influenza, split virus, quadrivalent, preservative 8 completed Not Available [facility] 02/15/2023 05:29:33 Influenza, high-dose, quadrivalent, PF 1 completed Not Available [facility] 02/15/2023 05:29:33 COVID-19, mRNA, LNP-S, PF, 100 mcg/0.5mL dose or 50 mcg/0.25mL dose 1 completed Not Available [facility] 02/15/2023 05:29:33 COVID-19, mRNA, LNP-S, PF, 100 mcg/0.5mL dose or 50 mcg/0.25mL dose 1 completed Not Available [facility] 02/15/2023 05:29:33 COVID-19, mRNA, LNP-S, PF, 100 mcg/0.5mL dose or 50 mcg/0.25mL dose 2 completed Not Available [facility] 02/15/2023 05:29:33 SARS-COV-2 (COVID-19) vaccine, UNSPECIFIED 1 completed Not Available [facility] 02/15/2023 05:29:34 COVID-19, mRNA, LNP-S, bivalent, PF, 30 mcg/0.3 mL dose 3 completed Not Available [facility] 02/15/2023 05:29:34 COVID-19, mRNA, LNP-S, bivalent, PF, 30 mcg/0.3 mL dose 2 completed Not Available [facility] 02/15/2023 05:29:34 pneumococcal polysaccharide PPV23 7 completed Not Available [facility] 02/15/2023 05:29:34 pneumococcal polysaccharide PPV23 5 completed Not Available [facility] 02/15/2023 05:29:34 pneumococcal polysaccharide PPV23 1 completed Not Available [facility] 02/15/2023 05:29:34 Hep B, adult 7 completed Not Available [facility] 02/15/2023 05:29:34 influenza, unspecified formulation 8 completed Not Available [facility] 02/15/2023 05:29:34 influenza, unspecified formulation 4 completed Not Available [facility] 02/15/2023 05:29:34 influenza, unspecified formulation 9 completed Not Available [facility] 02/15/2023 05:29:35 Influenza, high-dose, quadrivalent, PF 3 completed Not Available [facility] 04/19/2023 05:31:38 COVID-19, mRNA, LNP-S, PF, mayito-sucrose, 30 mcg/0.3 mL 3 completed Not Available [facility] 04/19/2023 05:31:38 Past Encounters Encounter ID Performer Location Encounter Start Date Encounter Closed Date Diagnosis/Indication Diagnosis SNOMED-CT Code Diagnosis ICD10 Code Diagnosis Note [id number] RUPAL BARILLAS MD [address] [address] 03/04/2024 13:41:07 03/04/2024 14:36:13 Neuropathy due to type 2 diabetes mellitus 6096037657 35219 E11.40 Actinic keratosis 007 L57.0 L eyelid, treated with cryotherap y today, re-eval at next OV. Decompensa nate cirrhosis of liver 037636532 K74.60 Chronic diarrhea 0039003 09 K52.9 Castillo's esophagus 3029 46999 K22.70 Atypical chest pain 1025 55853 R07.89 Psychophys iologic insomnia 000524503 F51.04 Cough 19419057 R05.9 [id number] RUPAL BARILLAS MD [address] [address] 03/17/2024 13:44:52 03/17/2024 16:08:58 Acute lower respiratory tract infection 813003024 J22 Findings concerning for possible pneumonia. Advised ER evaluation . Updated Brice provider. Her will bring her directly there. Acute confusion 05372135 0 R41.0 She was unable to give me any details and seemed more confused than usual, concerning for possible delirium. Advised ER evaluation . Her [id number] EMORY FOSTER LPN [address] [address] 03/23/2024 11:25:55 03/23/2024 11:44:16 Hypokalemia 98239362 E87.6 Health Concerns Section Related Observation LastModified by Organization Detai ls LastModified Time None Recorded Concern Status LastModified by Organization Details LastModified Time None Recorded Payers Encounter Date Sequence Insurance Name Policy Number Policy Lucas Covered Member ID Lucas Member ID Guarantor Name 03/23/2024 1 [id number]/A [place]ANTAGE - PPO) [id number] Milka Corbett [id number] Milka Corbett OBGyn Episode No OBEpisode recorded.
--- OUTSIDE RECORDS SUMMARY | 2024-05-18 16:54 | XMS_ITS | Continuity of Care Document ---
Author Organization [facility], [facility] Address [address] [place] [address] Care Team Providers Care Bioinformatics Team Member Name Role Phone CRYSTAL MCCORMACK Mass Communications Instructor LANI WALLIS Freight Team Associate Assessment Encounter Date Assessment Date Assessment LastModified [...] use. b. Send a short-term refill to [facility] pharmacy to ensure the patient does not run out. c. Continue monitoring weight and edema. Atypical Chest Pain - Assessment: Negative stress test. - Plan: a. Discontinue long-term anti-anginal medication. b. Encourage follow-up with cord maker if symptoms persist or worsen. Cirrhosis with [...] devoted to today's encounter, including both the pano-ak-ayop time with the patient and/or family/caregiver and rsi-jrfn-lv-face time I personally spent is 45 minutes. [email or web address] Not available 03/06/2024 11:29:18 Plan of Treatment Reminders Order Date Submit Date Provider Last Modified By Organization Details Last Modified Time Details Appointments Acute 2024 04:00P M RICARDO MARQUISGLIA Not available Not available Not available Follow Up 2024 11:00A M RUPAL ERAN Not available Not available Not available Lab hemoglob in A1C, fingerst ick 2023 024 [email or web address] [facility], [address] [facility], [place], [address], 03/06/2024 07:43:32 Referral None recorded . Procedures None recorded . Surgeries None recorded . Imaging None recorded . Medication Orders torsemid e 10 mg tablet 2023 024 [address], [place], [address], 03/19/2024 13:54:33 Patient TargetsNo targets recorded. Patient Instructions Encounter Date Encounter Id Patient Instructions Last Modified By Organization Details Last Modified Time 03/04/2024 [id number] Dear Milka, Thank you for visiting us today. We appreciate your commitment to managing your health and are here to support you in improving your well-being. Here is a summary of the palomo instructions from today's consultation: - Medications: - Continue taking Torsemide daily. A short-term refill will be sent to [facility] to ensure you do not run [...] Warm regards, Rupal Barillas MD Family Medicine [email or web address] Not available 03/04/2024 14:33:52 Reason for Referral None Reported. Results Created Date Observation Date Name Description Value Unit Range Abnormal Flag Note LastModifiedBy Organization Detail LastModifiedTime 03/04/20 24 03/04/2024 hemog lobin A1C, finge rstic k hemoglobin A1C 7.3 % <5.7 Not Available [address], [place], [address], 03/04/2024 14:21:18 03/17/20 24 03/17/2024 xr chest 2V Pa and later al [facility] RADIOL OGY [place] [id number] RADIOL OGY TRANSC RIPTIO N REPORT _ Patien t Name: CRISTEL SEGUNDO MRN: Sex: : Age: [id number] F [id number] Accoun t: Access ion: Admit: StayTy pe: [id number] 2023 Aylin Castellon d: Order ID: Submit nate: David ng Provid er: 2023 16:03 [id number] Zoey MOSLEY nate: Techno logist : Result [...] t. If you are a health care [facility] er and have any questi ons regard ing this report , please contac t the number below. For patien ts who have questi ons please contac t the health care profes sional that reques nate your imagin g first. Electr onical ly signed by: Kimberly Keith MD Radiol sohan ji ([phone]), at 2023 4:28 PM INTERFACE [facility] (Lab) [address] [place] [address], [address], 03/17/2024 16:35:27 03/17/20 24 03/17/2024 EKG order yony ng 12 lead [facility] [place] [address] EKG TRANSC RIPTIO N REPORT _ Accoun t: Access ion: Admit: StayTy pe: [id number] 2023 E/R Observ ation: Order ID: Submit nate: David Klein er: 2023 16:34 [id number] KURT KIN AYALA _ [place] [id number] [facility] Test Date: 2023-04 Pat Name: KAYLEE Khan Depart ment: Brice bermudez ID: [id number] Room: Gender : F Techni perri: jr : 1941-0 06-22 Reques nate By: FRANC Yanes Order Number : [id number] Kelby [email or web address] MD: Jung Corona Measur ements Interv als [place] Rate: 109 P: 57 [place]: 182 QRS: -22 QRSD: 92 T: 0 QT: 328 QTc: 441 Interp retive Statem ents Sinus tachyc ardia Poor R wave progre ssion, likely due to lead placem ent Compar ed to ECG 2023 09:24: 01 Sinus rhythm no longer presen t Electr onical ly Signed On 2023 19:33: 53 EST by Jung Corona INTERFACE [facility] (Lab) [address] [place], [address], 03/17/2024 19:35:41 05/07/19 25 11/06/2016 DEXA No observ ation record ed. [email or web address] [facility] - Radiology [address] [place], [address], 05/07/2024 10:15:11 Result Notes None recorded. Problems Name Problem SNOMED Code Status Onset Date Resolution Date Notes Provider Name and Address Organization Details Recorded Time Acute lower respirat ory tract infectio n 485372553 Completed 202303/27/[address], [facility] [address] , [facility] 14:21:53 Acute confusio n 508965527 Completed 202303/27/[address], [facility] [address] , [facility] 14:21:53 Chronic cough 99722096 Active [address], [facility] [address] , [facility] 14:11:35 Dysuria 93484643 Active 2024 Problem Code: R30.0; Problem Code Type: ICD-10; MD Livan R[address]UEZ Dr, [facility] [address] , [facility] 14:40:58 Dry lips 741336252 Active [address], [facility] [address] , [facility] 15:15:20 Loose stool 757017526 Active [address], [facility] [address] , [facility] 15:16:13 Encopres is 511763834 Active [address], [facility] [address] , [facility] 15:16:22 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 640370638 Active [address], [address] 5 15:16:36 Clostrid ium difficil e colitis 891026520 Active [address], [address] 5 13:21:24 Pruritic rash 95214813 Active [address], [address] 5 13:21:36 Dizzines s 081365356 Active [address], [address] 5 13:23:52 Essentia l hyperten eugene 15094507 Completed 201305/13/2023 Problem Code: I10; Problem Code Type: ICD-10; MD Livan RODRIGUEZ Dr, [address] 4 13:45:04 Migraine 16786889 Active 2013 [facility] 4 12:45:27 History of disorder of digestiv e system 274693508 Completed 201305/13/2023 Problem Code: Z87.19; Problem Code Type: ICD-10; MD Livan RODRIGUEZ Dr, [address] 4 13:45:04 Restless legs 12168588 Active 2013 [facility] 12:48:18 Disorder of nervous system due to type 2 diabetes mellitus 543196552 Completed 201305/13/2023 04/27/19 20 - Comments only - Liana Freitastcher - - Increase metformi n to 1000 [...] Code Type: ICD-10; MD Livan RODRIGUEZ Dr, [facility] [address] , [facility] 4 13:45:04 Allergic rhinitis 61935033 Completed 201305/13/2023 Problem Code: J30.9; Problem Code Type: ICD-10; MD Livan RODRIGUEZ Dr, [facility] [address] , [facility] 4 13:45:04 Mixed hyperlip idemia 686084662 Active 2013 [facility] 4 12:45:48 Neuropat hy due to type 2 diabetes mellitus 60038661994 9106 Active 2013 [facility] 4 12:46:16 Intolera nce to lactose 414915333 Completed 201305/13/2023 Problem Code: E73.9; Problem Code Type: ICD-10; MD Livan R[address] Dr, [place], [address] , [facility] 4 13:45:04 Heart murmur 45419175 Active [address], [place], [address] , [facility] 4 06:52:52 History of malignan t neoplasm of bladder 502674149 Active 2013, recurren ce 2008, Dr. Boykin, chemo instilla tion, straight caths [facility] 4 12:43:10 History of nutritio nal disorder 799854304 Completed 201405/13/[address], [place], [address] , [facility] 4 13:45:04 Irritabl e bowel syndrome 87968218 Active 2014 [facility] 4 12:45:06 Eczema 16766012 Active 2014 [facility] 4 12:38:10 Hernia of abdomina l cavity 88065770 Active 2015 [facility] 4 12:41:15 Cirrhosi s of liver 03444735 Completed 201505/13/2023 09/22/19 20 - Comments only - Nat Bryant M.D. - Has gained some weight, and possibly has ascites, although I have never examined her before. Follow-u p as planned tomorrow for imaging, labs, and speciali [facility] ent at [facility]. Problem Code: K74.69; Problem Code Type: ICD-10; MD Livna R[address]UE[address] Dr, [place], [address] , [facility] 4 13:45:04 History of urinary tract infectio n 83619145872 07 Completed 201505/13/2023 08/03/19 16 - Comments [...] Code Type: ICD-10; MD Livan RODRIGUEZ Dr, [address] 4 13:45:04 Screenin g for malignan t neoplasm of breast Completed 201505/13/2023 Problem Code: Z12.39; Problem Code Type: ICD-10; MD Livan RODRIGUEZ Dr, [address] 4 13:45:04 Candidia sis of vagina 28192103 Completed 201505/13/2023 Problem Code: B37.3; Problem Code Type: ICD-10; MD Livan RODRIGUEZ Dr, [address] 4 13:45:04 Portal hyperten eugene 25010256 Active 2015 no ascites or encephal opathy, EGD 2015 (gastric ulcer) [facility] 4 12:47:45 Genitour inary symptoms 965423624 Completed 201504/17/2016 Problem Code: R39.89; Problem Code Type: ICD-10; Not Available [facility] 3 04:10:10 Screenin g for malignan t neoplasm of colon Completed 201605/13/2023 Problem Code: Z12.11; Problem Code Type: ICD-10; MD Livan RODRIGUEZ Dr, [address] 4 13:45:04 Pneumoni a 372807672 Completed 201602/15/2017 02/12/20 17 - Improved - 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 - s/p tx with azithrom ycin pt signific antly improved RTC if sx worsen/p ersist Problem Code: J18.9; Problem Code Type: ICD-10; MD Livan RODRIGUEZ Dr, [facility] [address] , [facility] 4 14:21:53 Orthosta tic hypotens ion 19564803 Active 2017 [facility] 4 12:46:41 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9; Problem Code Type: ICD-10; MD Livan RODRIGUEZ Dr, [facility] [address] [address] 4 13:45:04 Hyperlip idemia 50472791 Active 2018 [facility] 4 12:44:49 Gastroes ophageal reflux disease without esophagi tis 170972953 Active 2019 [facility] 4 12:39:54 Urinary tract infectio us disease 55353738 Completed 201909/29/2019 09/22/19 20 - Comments only [...] Problem Code Type: ICD-10; Not Available [facility] 3 04:10:12 Nervous system and sense organ diseases 032566537 Completed 202005/13/[address], [place], [address] , [facility] 4 13:45:04 Fall on or from stairs or steps Completed 202005/27/2020 Problem Code: W10.9xxA ; Problem Code Type: ICD-10; Not Available [facility] 3 04:10:12 Knee joint effusion 135605325 Completed 202006/06/2020 Problem Code: M25.469; Problem Code Type: ICD-10; Not Available [facility] 3 04:10:13 Low back pain 679692798 Completed 202006/20/2020 Problem Code: M54.5; Problem Code Type: ICD-10; INDIRA Y[address], [place], [address] , [facility] 4 14:31:55 Dysuria 61080521 Completed 202009/03/2020 Problem Code: R30.0; Problem Code Type: ICD-10; MD Livan R[address] Dr, [place], [address] , [facility] 5 14:40:58 Psychoph ysiologi c insomnia 142262477 Active 2020 Insomnia , chronic [facility] 4 12:48:07 Dizzines s and giddines s 288953926 Completed 202010/31/2020 Problem Code: R42; Problem Code Type: ICD-10; Not Available [facility] 3 04:10:14 Atrophic vaginiti s 26238676 Active 2020 [facility] 4 12:37:19 Urinary tract infectio us disease 21964389 Completed 202003/03/2021 Problem Code: N39.0; Problem Code Type: ICD-10; Not Available [facility] 3 04:10:14 Disorder of hematopo ietic structur e 973628929 Completed 202105/13/2023 Problem Code: D75.89; Problem Code Type: ICD-10; RUPAL BARILLAS MD [address], [address] 4 13:45:04 Tension- type headache 449715442 Completed 202105/13/2023 Problem Code: G44.209; Problem Code Type: ICD-10; MD Livan RODRIGUEZ Dr, [address] 4 13:45:04 Acute conjunct ivitis of left eye 88577904603 9105 Completed 202112/19/2021 12/13/19 22 - Comments only - Nat Bryant M.D. - Likely bacteria l. Rx sent for e-mycin ointment . Call for reevalua tion if worsenin g, or no better w/in 48 hours. Problem Code: H10.32; Problem Code Type: ICD-10; Not Available [facility] 3 04:10:15 Cerebrov ascular disease 51618937 Active 2021 Gail rodriguez, [facility] 4 12:37:49 Urinary tract infectio us disease 78786521 Completed 202208/28/2022 Problem Code: N39.0; Problem Code Type: ICD-10; Not Available [facility] 3 04:10:15 Pneumoni a 056148826 Completed 202211/08/2022 10/30/19 23 - Improved - [...] Code Type: ICD-10; MD Livan [address] Dr, [place], [address] , [facility] 4 14:21:53 Edema 591772197 Active 2022 Peripher al edema [facility] 4 12:38:42 Castillo' s esophagu s 071049976 Active 2022 [facility] 4 12:37:33 Candidia sis of skin 68346430 Completed 201810/23/2022 Problem Code: B37.2; Problem Code Type: ICD-10; Not Available [facility] 3 04:10:16 Acute atopic conjunct ivitis 51415617 Completed 201804/21/2019 Problem Code: H10.10; Problem Code Type: ICD-10; Not Available [facility] 3 04:10:16 Constipa tion 74624659 Completed 201301/02/2023 Problem Code: K59.00; Problem Code Type: ICD-10; Not Available [facility] 3 04:10:16 Cough 94170176 Completed 202201/02/2023 Problem Code: R05.8; Problem Code Type: ICD-10; MD Livan [address] Dr, [place], [address] , [facility]. 4 14:21:53 Hyperten sive disorder 83839202 Completed 201301/02/2023 Not Available [facility] 3 04:10:17 Neoplasm of urinary bladder 299967074 Completed 201301/02/2023 Problem Code: D49.4; Problem Code Type: ICD-10; Not Available [facility] 3 04:10:17 Enthesop athy 81711987 Completed 201812/26/2020 Problem Code: M77.9; Problem Code Type: ICD-10; Not Available [facility] 3 04:10:17 Hypercal cemia 32334173 Completed 201401/02/2023 Not Available [facility] 3 04:10:18 Lung field abnormal 919690161 Completed 201607/29/2017 Problem Code: R91.8; Problem Code Type: ICD-10; Not Available [facility] 3 04:10:18 Insomnia 021505848 Completed 201906/06/2021 Problem Code: F51.09; Problem Code Type: ICD-10; Not Available [facility] 3 04:10:18 Disorder of lung 36264683 Completed 201710/23/2022 Problem Code: J98.4; Problem Code Type: ICD-10; Not Available [facility] 3 04:10:18 Type 2 diabetes mellitus without complica tion 545250246 Completed 201301/02/2023 Problem Code: E11.9; Problem Code Type: ICD-10; [address], [place], [address] , [facility]. 4 15:17:00 Pain of left shoulder joint 44124952616 302781 Completed 201406/06/2021 Problem Code: M25.512; Problem Code Type: ICD-10; Not Available [facility] 3 04:10:19 Screenin g for osteopor osis Completed 201602/11/2017 Problem Code: Z13.820; Problem Code Type: ICD-10; Not Available [facility] 3 04:10:19 Inflamed seborrhe ic keratosi s 456052147 Completed 201910/23/2022 Problem Code: L82.0; Problem Code Type: ICD-10; Not Available [facility] 3 04:10:20 Disorder of brain 30325370 Completed 202103/05/2022 Problem Code: G93.40; Problem Code Type: ICD-10; Not Available [facility] 3 04:10:20 Other idiopath ic peripher al neuropat hy NOS Completed 201301/02/2023 Not Available [facility] 3 04:10:20 Obesity 564426413 Completed 201301/02/2023 Not Available [facility] 3 04:10:20 Fatigue 34360343 Completed 201810/27/2018 Problem Code: R53.83; Problem Code Type: ICD-10; Not Available [facility] 3 04:10:21 Genitour inary symptoms 154973012 Completed 201904/04/2020 Problem Code: R39.9; Problem Code Type: ICD-10; Not Available [facility] 3 04:10:21 Benign paroxysm al position al vertigo 403561532 Completed 202001/02/2023 Problem Code: H81.10; Problem Code Type: ICD-10; Not Available [facility] 3 04:10:22 Disorder of skin and/or subcutan eous tissue 35382680 Completed 201904/04/2020 Problem Code: L98.9; Problem Code Type: ICD-10; Not Available [facility] 3 04:10:22 Osteophy te of bone 21594547854 9100 Completed 201906/28/2020 Problem Code: M25.776; Problem Code Type: ICD-10; Not Available [facility] 3 04:10:22 Gastric ulcer 426393564 Completed 201501/02/2023 Problem Code: K25.9; Problem Code Type: ICD-10; Not Available [facility] 3 04:10:22 Right side sciatica 87204258736 9101 Completed 201804/21/2019 Problem Code: M54.31; Problem Code Type: ICD-10; Not Available [facility] 3 04:10:23 Candidia sis 38471070 Completed 201308/22/2015 Problem Code: B37.9; Problem Code Type: ICD-10; Not Available [facility] 3 04:10:23 Steatosi s of liver 810004259 Completed 201302/10/2016 Problem Code: K76.0; Problem Code Type: ICD-10; Not Available [facility] 3 04:10:23 Cough 12555051 Completed 201912/26/2020 Problem Code: R05; Problem Code Type: ICD-10; RUPAL BARILLAS MD [address] [place], [address] [facility] 4 14:21:53 Xerostom ia 86904518 Completed 202006/06/2021 Problem Code: R68.2; Problem Code Type: ICD-10; [facility] 4 12:49:03 Candidal vulvovag initis 71967786 Completed 201301/02/2023 Problem Code: 112.1; Problem Code Type: ICD-9; Not Available [facility] 3 04:10:25 Intestin al disaccha ridase deficien cy 79692997 Completed 201301/02/2023 Problem Code: 271.3; Problem Code Type: ICD-9; Not Available [facility] 3 04:10:25 Acute bronchit is 45310257 Completed 201912/26/2020 Problem Code: J20.9; Problem Code Type: ICD-10; Not Available [facility] 3 04:10:26 Peripher al nerve disease 544907281 Completed 201301/02/2023 Not Available [facility] 3 04:10:26 Acute upper respirat ory infectio n 66738703 Completed 202205/13/2023 Problem Code: J06.9; Problem Code Type: ICD-10; MD Livan [address], [place] [address] , [facility] 4 13:45:04 Diastoli c heart failure 856355269 Active 2022 echo 03/[address], [address] 3 11:17:46 Chest pain 06869646 Completed 202205/13/2023 Problem Code: R07.89; Problem Code Type: ICD-10; MD Livan [address], [place] [address] , [facility] 4 13:45:03 Aortic stenosis , non-rheu matic 952168467 Active 2022 mild 03/2023 echo MD Livan [address] Dr, [address] 4 06:52:21 Senile hyperker atosis 654630449 Completed 202205/13/2023 Problem Code: L82.1; Problem Code Type: ICD-10; MD Livan [address] Dr, [facility] [address] [place] [address] 4 13:45:03 Melanocy tic nevus 410652552 Completed 202205/13/2023 Problem Code: D22.9; Problem Code Type: ICD-10; MD Livan [address] Dr, [facility] [address] [place] [address] 4 13:45:04 Incoordi nation 000629827 Completed 202205/13/2023 01/31/20 23 - Comments only - Rupal Barillas MD - neuro exam not c/w CVA; will eval further at next visit. Problem Code: R27.9; Problem Code Type: ICD-10; RUPAL BARILLAS MD [address], [place], [address] , [facility] 4 13:45:03 Dyspnea 516278527 Completed 202205/13/2023 Problem Code: R06.09; Problem Code Type: ICD-10; MD Livan [address] Dr, [facility] [address] [place] [address] 4 13:45:03 Chronic diarrhea 754854071 Active 2023 [facility] 4 12:37:57 Drug-ind uced xerostom ia 966908241 Active [address], [place], [address] [place] [address] 4 13:38:38 Microalb uminuric diabetic nephropa thy 392073622 Active 2023 [facility] 4 12:45:11 Dyspnea on exertion 40255287 Active 2023 [facility], [facility] 4 12:37:57 Angular cheiliti s 670694779 Active 2023 [facility] 4 12:36:56 Xerostom ia 99245443 Active 2023 [facility] 4 12:49:03 History of adenomat ous polyp of colon 994620543 Active 2020 [facility], [facility] 4 12:43:44 Sialoade nitis 35292567 Completed 202308/09/[address], [address] [place] [address] 4 16:48:36 Low back pain 073939172 Active 2023 Problem Code: M54.5; Problem Code Type: ICD-10; AMADEO VICTORINO, GENERAL SURGERY PHYSICIAN ASSISTANT [address], [address] 4 14:31:55 Chest pain on exertion 71154832 Active [address], [address] 12:24:41 Always hungry 269466742 Active [address], [address] 4 16:38:32 Altered bowel function 69630386 Active [address], [address] 4 16:38:44 Atypical chest pain 707439310 Active 2023 DORIS JONES MA null, [facility] 4 07:31:04 Acquired thromboc ytopenia 31930850 Active [address], [facility] [address] [place] [address] 4 09:56:08 Actinic keratosi s 996615735 Active [address], [facility] [address] [place] [address] 4 13:34:57 Nodule of lung 422284584 Active 2023 probable lipoma by PET. (benign) MD [address]ivan [address], [place], [address] , [facility] 4 06:49:28 Minimal cognitiv e impairme nt 270205730 Active [address], [place], [address] , [facility] 4 15:05:52 New daily persiste nt headache 41599608677 9105 Active [address], [place], [place], [address] [place] [address] , [facility] 4 16:29:33 Lichen sclerosu s of vulva 727758080 Active [address], [place] [address] , [facility] 4 15:22:25 Milia 323534260 Active [address], [place] [address] , [facility] 4 15:51:39 Obstruct keshia sleep apnea syndrome 30423293 Active 2023 DORIS JONES MA null, [facility] 4 09:39:29 Atherosc lerosis Active 2023 DOIRS JONES MA null, [facility]. 4 09:39:44 Cirrhosi s - non-alco holic 483779085 Active 2023 with esoph varices and low PLT but no ascites, jaundice or sx. MD [address]ivan [address], [place], [address] , [facility] 4 06:56:02 Vulvitis 78677594 Active [address], [facility] [address] , [facility] 4 13:20:01 Thromboc ytopenic disorder 591124187 Active [address], [place] [address] , [facility] 4 13:23:28 Decompen sated cirrhosi s of liver 252093470 Active [address], [place] [address] , [facility] 4 14:23:47 Type 2 diabetes mellitus without complica tion 142674325 Active 2023 Problem Code: E11.9; Problem Code Type: ICD-10; INDIRA [address], [place] [address] , [facility] 4 15:17:00 Coronary arterios clerosis 39018947 Active 2023 DORIS JONES MA [facility], [facility] 4 12:31:32 Hyperpig mentatio n of skin 14031166 Active [address], [place] [address] , [facility] 4 15:19:42 Pneumoni a 871859174 Completed 202303/27/2024 10/30/19 23 - Improved - [...] Code Type: ICD-10; MD Livan RODRIGUEZ Dr, [place] [address] , [facility] 4 14:21:53 Cough 35233081 Completed 202303/27/2024 Problem Code: R05.8; Problem Code Type: ICD-10; MD Livan RODRIGUEZ Dr, [facility] [address] , [facility] 4 14:21:53 Notes:Some problems listed i n Document: #[id number] could not be added to this patient's chart. Please review this document and add these problems to the patient's chart manually as needed. Problem Notes None recorded. Procedures Surgical History Date Name Laterality Status Provider Name and Address Organization Details Recorded Time 4 Cryosurgery Multiple Actinic Keratoses completed MD Livan RODRIGUEZ Dr, [facility] [id number] [place] [address] 03/06/2024 11:24:31 Cryosurgery Warts/Skin Tags completed MD Livan RODRIGUEZ Dr, [facility] [id number] [place] [address] 10/18/2023 15:47:48 4 Cryosurgery Warts/Skin Tags completed MD Livan RODRIGUEZ Dr, [facility] [address] 10/07/2023 13:34:27 Imaging Results None recorded. Procedure Notes None recorded. Medical Equipment None Reported. Allergies Allergen ID Allergen Name Allergen Category Reaction Reaction Severity Criticality Documentation Date Start Date Code Code System Note Provider Name and Address Organization Details Recorded Time 68374 erythromy laura medicatio n other moderate Not available 02/15/20232013 4053 RxNorm stoma ch pain Gail Lavern null, [facility] 12:53:11 47108 Bactrim medicatio n itching moderate Not available 08/01/20232013 29584 9 [facility] 12:51[facility]33 30041 codeine medicatio n itching moderate Not available 08/01/20232013 2670 RxNorm itchy , paran oid Gail Fregosoeri [facility] 12:52:07 11070 Demerol medicatio n other moderate Not available 08/01/20232013 97163 1 RxNorm can' t sleep Gail Puckett [facility] 12:52:55 50443 simvastat in medicatio n nausea moderate Not available 08/01/20232013 62152 RxNorm (ALLS TATIN S) Gail Puckett [facility] 12:53:40 66279 Trulicity medicatio n vomiting moderate low 09/25/2023 05242 96 RxNorm RUPAL BARILLAS MD [address], [place], [address] [place] [address] 12:57:22 Medications Name Sig Start Date Stop [...] a day 12/[address] Wallis, [facility], after August 2022 OV [...] Relief 50 mcg/actua tion nasal spray,moraima pension [place] 1 spray into both nostrils once a [...] Updated DateTime 4 154.94 cm 26.5 kg/m2 91447.9 3 g 96 % 96 % 86 /min 97.4 [degF] 116 mm[Hg] 60 mm[Hg] JAMEY PRETTY MA [facility], [facility]. 14:01:08 Social History Question Answer Notes LastModified by Organizat ion Details LastModified Time Tobacco Smoking Status Never Smoker MARY PRETTY MA null, [facility]. 03/18/2023 15:57:23 Would You Say That, In General, Your Health Is Good [email or web address] Information not available 08/09/2023 How Often Does Anyone, Including Family, Physically Hurt You? Never [email or web address] Information not available 08/09/2023 How Often Does Anyone, Including Family, Insult Or Talk Down To You? Rarely [email or web address] Information no t available 08/09/2023 How Often Does Anyone, Including Family, Threaten You With Harm? Never Information not available 08/09/2023 How Often Does Anyone, Including Family, Scream Or Curse At You? Never [email or web address] Information not available 08/09/2023 Within The Past 12 Months, You Worried That Your Food Would Run Out Before You Got Money To Buy More. Never True [email or web address] Information n ot available 08/09/2023 Within The Past 12 Months, The Food You Bought Just Didn't Last And You Didn't Have Money To Get More. Never True [email or web address] Information not available 08/09/2023 How Hard Is It For You To Pay For The Very Basics Like Food, Housing, Medical Care, And Heating? Would You Say It Is: Somewhat Hard [email or web address] Information not available 08/09/2023 In The Past 12 Months, Has Lack Of Reliable Transportation Kept You From Medical Appointments, Meetings, Work Or From Getting Things Needed For Daily Living? No [email or web address] Information not available 08/09/2023 What Is Your Housing Situation Today? I Have Housing. [email or web address] Information not available 08/09/2023 How Often In The Past Year Have You Used Marijuana (including Smoking, Vaping, Dabbing, Or Edibles)? Never [email or web address] Information not available 08/09/2023 How Often In The Past Year Have You Used Prescription Medications That Were Not Prescribed To You? Never [email or web address] Information not available 08/09/2023 How Often In The Past Year Have You Taken Your Own Prescription Medication More Than The Way It Was Prescribed Or For Different Reasons Than Its Intended Purpose? Never [email or web address] Information not available 08/09/2023 How Often In The Past Year Have You Used Other Drugs (for Example, Heroin, Cocaine, Meth, Salvia, Inhalants)? Never [email or web address] Information not available 08/09/2023 Have You Ever Used IV Drugs? No [email or web address] Information not available 08/09/2023 Date Of Most Recent SBINS 08/09/2023 [email or web address] Information not available 08/09/2023 What Was The Date Of Your Most Recent Tobacco Screening? 10/18/2023 [email or web address] Information n ot available 10/18/2023 Has Tobacco Cessation Counseling Been Provided? No [email or web address] Information not available 10/25/2023 Do You Or Have You Ever Used Any Other Forms Of Tobacco Or Nicotine? No [email or web address] Information not available 03/18/2023 Sex: Female Functional [...] high-dose, trivalent, PF 4 completed GIOVANNA ASIF [facility] 01/09/2024 16:25:43 COVID-19, mRNA, LNP-S, PF, mayito-sucrose, 30 mcg/0.3 mL 4 completed GIOVANNA ASIF [facility] 01/09/2024 16:25:43 Td (adult), 2 Lf tetanus toxoid, preservative free, adsorbed 7 completed Not Available [facility] 02/15/2023 05:29:32 Hep A-Hep B 7 completed Not Available [facility] 02/15/2023 05:29:32 Hep A-Hep B 6 completed Not Available [facility] 02/15/2023 05:29:32 Tdap 7 completed Not Available [facility] 02/15/2023 05:29:32 Pneumococcal conjugate PCV 13 7 completed Not Available [facility] 02/15/2023 05:29:32 Td(adult) unspecified formulation 6 completed Not Available [facility] 02/15/2023 05:29:32 Influenza, split virus, trivalent, preservative 6 completed Not Available [facility] 02/15/2023 05:29:32 Influenza, split virus, trivalent, preservative 5 completed Not Available [facility] 02/15/2023 05:29:32 Influenza, split virus, quadrivalent, PF 2 completed Not Available [facility] 02/15/2023 05:29:33 Influenza, split virus, quadrivalent, PF 3 completed Not Available [facility] 02/15/2023 05:29:33 Influenza, split virus, quadrivalent, preservative 7 completed Not Available [facility] 02/15/2023 05:29:33 Influenza, split virus, quadrivalent, preservative 8 completed Not Available [facility] 02/15/2023 05:29:33 Influenza, high-dose, quadrivalent, PF 1 completed Not Available [facility] 02/15/2023 05:29:33 COVID-19, mRNA, LNP-S, PF, 100 mcg/0.5mL dose or 50 mcg/0.25mL dose 1 completed Not Available [facility] 02/15/2023 05:29:33 COVID-19, mRNA, LNP-S, PF, 100 mcg/0.5mL dose or 50 mcg/0.25mL dose 1 completed Not Available [facility] 02/15/2023 05:29:33 COVID-19, mRNA, LNP-S, PF, 100 mcg/0.5mL dose or 50 mcg/0.25mL dose 2 completed Not Available [facility] 02/15/2023 05:29:33 SARS-COV-2 (COVID-19) vaccine, UNSPECIFIED 1 completed Not Available [facility] 02/15/2023 05:29:34 COVID-19, mRNA, LNP-S, bivalent, PF, 30 mcg/0.3 mL dose 3 completed Not Available [facility] 02/15/2023 05:29:34 COVID-19, mRNA, LNP-S, bivalent, PF, 30 mcg/0.3 mL dose 2 completed Not Available [facility] 02/15/2023 05:29:34 pneumococcal polysaccharide PPV23 7 completed Not Available [facility] 02/15/2023 05:29:34 pneumococcal polysaccharide PPV23 5 completed Not Available [facility] 02/15/2023 05:29:34 pneumococcal polysaccharide PPV23 1 completed Not Available [facility] 02/15/2023 05:29:34 Hep B, adult 7 completed Not Available [facility] 02/15/2023 05:29:34 influenza, unspecified formulation 8 completed Not Available [facility] 02/15/2023 05:29:34 influenza, unspecified formulation 4 completed Not Available [facility] 02/15/2023 05:29:34 influenza, unspecified formulation 9 completed Not Available [facility] 02/15/2023 05:29:35 Influenza, high-dose, quadrivalent, PF 3 completed Not Available [facility] 04/19/2023 05:31:38 COVID-19, mRNA, LNP-S, PF, mayito-sucrose, 30 mcg/0.3 mL 3 completed Not Available [facility] 04/19/2023 05:31:38 Past Encounters Encounter ID Performer Location Encounter Start Date Encounter Closed Date Diagnosis/Indication Diagnosis SNOMED-CT Code Diagnosis ICD10 Code Diagnosis Note [id number] JUDITH PEÑA RN [address] [address] 02/05/2024 14:49:21 02/05/2024 15:25:56 Cough 99301301 R05.9 OTC rapid Covid test neg. Pneumonia 143895809 J18. 9 possible, on basis of LLL rales. Patient with allergy to macrolides and sulfa, will treat with doxycyclin e particular ly given prevalence of atypical pneumonia currently. Also recommende d Mucinex to help with thinning secretions . May use albuterol as needed. Reviewed indication s for re-evaluat ion. [id number] RUPAL BARILLAS MD [address] [address] 03/04/2024 13:41:07 03/04/2024 14:36:13 Neuropathy due to type 2 diabetes mellitus 4895909381 08424 E11.40 Actinic keratosis 044268 007 L57.0 L eyelid, treated with cryotherap y today, re-eval at next OV. Decompensa nate cirrhosis of liver 535692501 K74.60 Chronic diarrhea 7558843 09 K52.9 Castillo's esophagus 3029 66283 K22.70 Atypical chest pain 1025 87807 R07.89 Psychophys iologic insomnia 716996278 F51.04 Cough 86793984 R05.9 Health Concerns Section Related Observation LastModified by Organization Detai ls LastModified Time None Recorded Concern Status LastModified by Organization Details LastModified Time None Recorded Payers Encounter Date Sequence Insurance Name Policy Number Policy Lucas Covered Member ID Lucas Member ID Guarantor Name 03/04/2024 1 [id number]/A [place]ANTAGE - PPO) [id number] Milka Corbett [id number] Milka Corbett Notes Date Note Type [...] things. RUPAL BARILLAS MD [address], [place], [address], [facility]. 03/06/2024 11:29:24 OBGyn Episode No OBEpisode recorded.
--- OUTSIDE RECORDS SUMMARY | 2024-05-18 16:54 | XMS_ITS | Continuity of Care Document ---
Author Organization [place] - [facility], [facility] Address [address] [place] [address] Care Team Providers Care Ditching Machine Operator Name Role Phone CRYSTAL MCCORMACK Timber Killer LANI WALLIS Head Loader Assessment Encounter Date Assessment Date Assessment LastModified [...] to aid recall. Not available 03/27/2024 14:29:14 Plan of Treatment Reminders Order Date Submit Date Provider Last Modified By Organization Details Last Modified Time Details Appointments Acute 2024 04:00P M RICARDO RUTLEDGE Not available Not available Not available Follow Up 2024 11:00A M RUPAL BARILLAS Not available Not available Not available Lab None recorded . Referral None recorded . Procedures None recorded . Surgeries None recorded . Imaging None recorded . Medication Orders carvedil ol 6.25 mg tablet 2023 KAILEE [facility], [address] [place] [address], [address], [place], [place], [id number], 03/27/2024 15:31:06 metformi n 1,000 mg tablet 2023 KAILEE [facility], [address], [address], [place], [place], [id number], 03/27/2024 15:31:06 albutero l sulfate HFA 90 mcg/actu ation aerosol inhaler 2023 [employer] [address], [address], [place], [address], 03/27/2024 15:31:08 Patient TargetsNo targets recorded. Patient Instructions Encounter Date Encounter Id Patient Instructions Last Modified By Organization Details Last Modified Time 03/27/2024 [id number] Dear Milka, Thank you for visiting us [...] - I may refer you to a marketing services specialist if we can't figure out the cause [...] Warm regards, Rupal Barillas MD Family Medicine [email or web address] Not available 03/27/2024 14:31:20 Reason for Referral None Reported. Results Created Date Observation Date Name Description Value Unit Range Abnormal Flag Note LastModifiedBy Organization Detail LastModifiedTime 03/17/20 24 03/17/2024 xr chest 2V Pa and later al [facility] RADIOL OGY [place] [id number] RADIOL OGY TRANSC RIPTIO N REPORT _ Patien t Name: CRISTEL SEGUNDO MRN: Sex: : Age: [id number] F [id number] Accoun t: Access ion: Admit: StayTy pe: [id number] 2023 Aylin Castellon d: Order ID: Submit nate: David Klein er: 2023 16:03 [id number] Zoey MOSLEY nate: Techno logist : Result [...] If you are a health care [facility] and have any questi ons regard ing this report , please contac t the number below. For patien ts who have questi ons please contac t the health care [facility] that reques nate your imagin g first. Electr onical ly signed by: Kimberly Keith MD Radiol sohan ji ([phone]), at 2023 4:28 PM INTERFACE [facility] (Lab) [address] [place] [address], [address], 03/17/2024 16:35:27 03/17/20 24 03/17/2024 EKG order yony ng 12 lead [facility] [place] [id number] EKG TRANSC RIPTIO N REPORT _ Accoun t: Access ion: Admit: StayTy pe: [id number] 2023 E/R Observ ation: Order ID: Submit nate: David Klein er: 2023 16:34 [id number] KIN BOYLE _ [place] [id number] [facility] Hospit al Test Date: 2023-04 Pat Name: KAYLEE Esther Khan Depart ment: Brice bermudez ID: [id number] Room: Gender : F Techni perri: jr : 1941-0 06-22 Reques nate By: FRANC Yanes Order Number : [id number] Kelby [email or web address] MD: Jung Corona Measur ements Interv als [place] Rate: 109 P: 57 RI: 182 QRS: -22 QRSD: 92 T: 0 QT: 328 QTc: 441 Interp retive Statem ents Sinus tachyc ardia Poor R wave progre ssion, likely due to lead placem ent Compar ed to ECG 2023 09:24: 01 Sinus rhythm no longer presen t Electr onical ly Signed On 2023 19:33: 53 EST by Jung Corona INTERFACE [facility] (Lab) [address] [place], [address], 03/17/2024 19:35:41 05/07/19 25 11/06/2016 DEXA No observ ation record ed. [email or web address] [facility] - Radiology [address] [place] [address], [address], 05/07/2024 10:15:11 Result Notes None recorded. Problems Name Problem SNOMED Code Status Onset Date Resolution Date Notes Provider Name and Address Organization Details Recorded Time Acute lower respirat ory tract infectio n 476679806 Completed 202303/27/[address], [address] 4 14:21:53 Acute confusio n 450710442 Completed 202303/27/[address], [address] 4 14:21:53 Chronic cough 88167771 Active [address], [address] 5 14:11:35 Dysuria 52852948 Active 2024 Problem Code: R30.0; Problem Code Type: ICD-10; MD Livan RODRIGUEZ Dr, [place] [address] , [facility] 5 14:40:58 Dry lips 836770464 Active [address], [address] 5 15:15:20 Loose stool 279311985 Active [address], [address] 5 15:16:13 Encopres is 527059224 Active [address], [address] 5 15:16:22 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 530476296 Active [address], [address] 5 15:16:36 Clostrid ium difficil e colitis 203585371 Active [address], [address] 5 13:21:24 Pruritic rash 47008389 Active [address], [address] 5 13:21:36 Dizzines s 751933778 Active [address], [address] 5 13:23:52 Essentia l hyperten eugene 32216333 Completed 201305/13/2023 Problem Code: I10; Problem Code Type: ICD-10; MD Livan RODRIGUEZ Dr, [address] 4 13:45:04 Migraine 69295029 Active 2013 [facility] 4 12:45:27 History of disorder of digestiv e system 974821565 Completed 201305/13/2023 Problem Code: Z87.19; Problem Code Type: ICD-10; MD Livan RODRIGUEZ Dr, [address] 4 13:45:04 Restless legs 44129821 Active 2013 Gail rodriguez, [facility] 4 12:48:18 Disorder of nervous system due to type 2 diabetes mellitus 440568123 Completed 201305/13/2023 04/27/19 20 - Comments only [...] Code Type: ICD-10; MD Livan RODRIGUEZ Dr, [facility] [address] , [facility] 4 13:45:04 Allergic rhinitis 35077254 Completed 201305/13/2023 Problem Code: J30.9; Problem Code Type: ICD-10; MD Livan RODRIGUEZ Dr, [place] [address] , [facility] 4 13:45:04 Mixed hyperlip idemia 889494847 Active 2013 [facility] 4 12:45:48 Neuropat hy due to type 2 diabetes mellitus 77172335187 9106 Active 2013 Gail rodriguez, [facility] 4 12:46:16 Intolera nce to lactose 370017709 Completed 201305/13/2023 Problem Code: E73.9; Problem Code Type: ICD-10; MD Livan RODRIGUEZ Dr, [facility] [address] , [facility] 4 13:45:04 Heart murmur 70417895 Active [address], [facility] [address] , [facility] 4 06:52:52 History of malignan t neoplasm of bladder 138938440 Active 2013, recurren ce 2008, Dr. Boykin, chemo instilla tion, straight caths Agil Lavern [facility] 4 12:43:10 History of nutritio nal disorder 509307953 Completed 201405/13/2023 RUPAL BARILLAS MD [address], [place], [address] , [facility] 4 13:45:04 Irritabl e bowel syndrome 26526741 Active 2014 [facility] 4 12:45:06 Eczema 91731134 Active 2014 [facility] 4 12:38:10 Hernia of abdomina l cavity 59487360 Active 2015 [facility] 4 12:41:15 Cirrhosi s of liver 39120221 Completed 201505/13/2023 09/22/19 20 - Comments only - Nat Bryant M.D. - Has gained some weight, and possibly has ascites, although I have never examined her before. Follow-u p as planned tomorrow for imaging, labs, and speciali [facility] ent at [facility]. Problem Code: K74.69; Problem Code Type: ICD-10; MD Livan RODRIGUEZ Dr, [place], [address] , [facility] 4 13:45:04 History of urinary tract infectio n 30151634650 07 Completed 201505/13/2023 08/03/19 16 - Comments [...] Code Type: ICD-10; MD Livan RODRIGUEZ Dr, [address] 4 13:45:04 Screenin g for malignan t neoplasm of breast Completed 201505/13/2023 Problem Code: Z12.39; Problem Code Type: ICD-10; MD Livan RODRIGUEZ Dr, [address] 4 13:45:04 Candidia sis of vagina 93236663 Completed 201505/13/2023 Problem Code: B37.3; Problem Code Type: ICD-10; MD Livan RODRIGUEZ Dr, [address] 4 13:45:04 Portal hyperten eugene 90061595 Active 2015 no ascites or encephal opathy, EGD 2015 (gastric ulcer) [facility] 4 12:47:45 Genitour inary symptoms 967989543 Completed 201504/17/2016 Problem Code: R39.89; Problem Code Type: ICD-10; Not Available [facility] 3 04:10:10 Screenin g for malignan t neoplasm of colon Completed 201605/13/2023 Problem Code: Z12.11; Problem Code Type: ICD-10; MD Livan RODRIGUEZ Dr, [address] 4 13:45:04 Pneumoni a 220439288 Completed 201602/15/2017 02/12/20 17 - Improved - 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 BIOINFORMATICS ENGINEER - s/p tx with azithrom ycin pt signific antly improved RTC if sx worsen/p ersist Problem Code: J18.9; Problem Code Type: ICD-10; MD Livan RODRIGUEZ Dr, [address] [employer] 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 63039800 Active 2018 small endoscop y 2019 [facility] repeat one year [facility] 4 12:39:42 Hepatic failure 88635175 Completed 201805/13/2023 Problem Code: K72.90; Problem Code Type: ICD-10; MD Livan RODRIGUEZ Dr, [facility] [address] [place] [address] 4 13:45:04 Acute upper respirat ory infectio n 08335901 Completed 201811/08/2018 Problem Code: J06.9; Problem Code Type: ICD-10; MD Livan RODRIGUEZ Dr, [facility] [address] [place] [address] 4 13:45:04 Proteinu ivnod 93741478 Completed 201805/13/2023 Problem Code: R80.9; Problem Code Type: ICD-10; MD Livan RODRIGUEZ Dr, [facility] [address] 4 13:45:04 Hyperlip idemia 46455634 Active 2018 [facility] 4 12:44:49 Gastroes ophageal reflux disease without esophagi tis 352966375 Active 2019 [facility] 4 12:39:54 Urinary tract infectio us disease 26688840 Completed 201909/29/2019 09/22/19 20 - Comments only [...] N39.0; Problem Code Type: ICD-10; Not Available [facility] 3 04:10:12 Nervous system and sense organ diseases 934116612 Completed 202005/13/2023 RUPAL BARILLAS MD [address], [facility] [address] [facility] 4 13:45:04 Fall on or from stairs or steps Completed 202005/27/2020 Problem Code: W10.9xxA ; Problem Code Type: ICD-10; Not Available [facility] 3 04:10:12 Knee joint effusion 483782451 Completed 202006/06/2020 Problem Code: M25.469; Problem Code Type: ICD-10; Not Available [facility] 3 04:10:13 Low back pain 799656253 Completed 202006/20/2020 Problem Code: M54.5; Problem Code Type: ICD-10; INDIRA YEN [address], [facility] [address] , [facility] 4 14:31:55 Dysuria 70299785 Completed 202009/03/2020 Problem Code: R30.0; Problem Code Type: ICD-10; MD Livan RODRIGUEZ Dr, [facility] [address] [facility] 5 14:40:58 Psychoph ysiologi c insomnia 463982971 Active 2020 Insomnia , chronic Gail Lavern rodriguez, [facility] 4 12:48:07 Dizzines s and giddines s 108385778 Completed 07/23/ 2021 10/31/2020 Problem Code: R42; Problem Code Type: ICD-10; Not Available [facility] 3 04:10:14 Atrophic vaginiti s 78128278 Active 2020 [facility] 4 12:37:19 Urinary tract infectio us disease 39539114 Completed 202003/03/2021 Problem Code: N39.0; Problem Code Type: ICD-10; Not Available [facility] 3 04:10:14 Disorder of hematopo ietic structur e 685419568 Completed 202105/13/2023 Problem Code: D75.89; Problem Code Type: ICD-10; RUPAL BARILLAS MD [address], [address] 4 13:45:04 Tension- type headache 113819446 Completed 202105/13/2023 Problem Code: G44.209; Problem Code Type: ICD-10; MD Livan RODRIGUEZ Dr, [address] 4 13:45:04 Acute conjunct ivitis of left eye 03509684809 9105 Completed 202112/19/2021 12/13/19 22 - Comments only - Nat Bryant M.D. - Likely bacteria l. Rx sent for e-mycin ointment . Call for reevalua tion if worsenin g, or no better w/in 48 hours. Problem Code: H10.32; Problem Code Type: ICD-10; Not Available [facility] 3 04:10:15 Cerebrov ascular disease 78999512 Active 2021 Gail rodriguez, [facility] 4 12:37:49 Urinary tract infectio us disease 62802319 Completed 202208/28/2022 Problem Code: N39.0; Problem Code Type: ICD-10; Not Available [facility] 3 04:10:15 Pneumoni a 995367565 Completed 202211/08/2022 10/30/19 23 - Improved - [...] Code Type: ICD-10; MD Livan RODRIGUEZ Dr, [facility] [address] , [facility] 4 14:21:53 Edema 462443552 Active 2022 Peripher al edema [facility] 4 12:38:42 Castillo' s esophagu s 714793923 Active 2022 [facility] 4 12:37:33 Candidia sis of skin 14506034 Completed 201810/23/2022 Problem Code: B37.2; Problem Code Type: ICD-10; Not Available [facility] 3 04:10:16 Acute atopic conjunct ivitis 75867102 Completed 201804/21/2019 Problem Code: H10.10; Problem Code Type: ICD-10; Not Available [facility] 3 04:10:16 Constipa tion 94988190 Completed 201301/02/2023 Problem Code: K59.00; Problem Code Type: ICD-10; Not Available [facility] 3 04:10:16 Cough 93331840 Completed 202201/02/2023 Problem Code: R05.8; Problem Code Type: ICD-10; MD Livan RODR[address]UEZ Dr, [place], [address] , [facility] 4 14:21:53 Hyperten sive disorder 25185827 Completed 201301/02/2023 Not Available [facility] 3 04:10:17 Neoplasm of urinary bladder 416158314 Completed 201301/02/2023 Problem Code: D49.4; Problem Code Type: ICD-10; Not Available [facility] 3 04:10:17 Enthesop athy 43186221 Completed 201812/26/2020 Problem Code: M77.9; Problem Code Type: ICD-10; Not Available [facility] 3 04:10:17 Hypercal cemia 36176712 Completed 201401/02/2023 Not Available [facility] 3 04:10:18 Lung field abnormal 487202144 Completed 201607/29/2017 Problem Code: R91.8; Problem Code Type: ICD-10; Not Available [facility] 3 04:10:18 Insomnia 750315146 Completed 201906/06/2021 Problem Code: F51.09; Problem Code Type: ICD-10; Not Available [facility] 3 04:10:18 Disorder of lung 86374742 Completed 201710/23/2022 Problem Code: J98.4; Problem Code Type: ICD-10; Not Available [facility] 3 04:10:18 Type 2 diabetes mellitus without complica tion 325012278 Completed 201301/02/2023 Problem Code: E11.9; Problem Code Type: ICD-10; [address], [place], [address] , [facility]. 4 15:17:00 Pain of left shoulder joint 54496537058 914696 Completed 201406/06/2021 Problem Code: M25.512; Problem Code Type: ICD-10; Not Available [facility] 3 04:10:19 Screenin g for osteopor osis Completed 201602/11/2017 Problem Code: Z13.820; Problem Code Type: ICD-10; Not Available [facility] 3 04:10:19 Inflamed seborrhe ic keratosi s 608047052 Completed 201910/23/2022 Problem Code: L82.0; Problem Code Type: ICD-10; Not Available [facility] 3 04:10:20 Disorder of brain 23279407 Completed 202103/05/2022 Problem Code: G93.40; Problem Code Type: ICD-10; Not Available [facility] 3 04:10:20 Other idiopath ic peripher al neuropat hy NOS Completed 201301/02/2023 Not Available [facility] 3 04:10:20 Obesity 934548588 Completed 201301/02/2023 Not Available [facility] 3 04:10:20 Fatigue 28705936 Completed 201810/27/2018 Problem Code: R53.83; Problem Code Type: ICD-10; Not Available [facility] 3 04:10:21 Genitour inary symptoms 832024614 Completed 201904/04/2020 Problem Code: R39.9; Problem Code Type: ICD-10; Not Available [facility] 3 04:10:21 Benign paroxysm al position al vertigo 015459022 Completed 202001/02/2023 Problem Code: H81.10; Problem Code Type: ICD-10; Not Available [facility] 3 04:10:22 Disorder of skin and/or subcutan eous tissue 58920426 Completed 201904/04/2020 Problem Code: L98.9; Problem Code Type: ICD-10; Not Available [facility] 3 04:10:22 Osteophy te of bone 38064525864 9100 Completed 201906/28/2020 Problem Code: M25.776; Problem Code Type: ICD-10; Not Available [facility] 3 04:10:22 Gastric ulcer 079682552 Completed 201501/02/2023 Problem Code: K25.9; Problem Code Type: ICD-10; Not Available [facility] 3 04:10:22 Right side sciatica 10194720767 9101 Completed 201804/21/2019 Problem Code: M54.31; Problem Code Type: ICD-10; Not Available [facility] 3 04:10:23 Candidia sis 46494295 Completed 201308/22/2015 Problem Code: B37.9; Problem Code Type: ICD-10; Not Available [facility] 3 04:10:23 Steatosi s of liver 538708991 Completed 201302/10/2016 Problem Code: K76.0; Problem Code Type: ICD-10; Not Available [facility] 3 04:10:23 Cough 78469947 Completed 201912/26/2020 Problem Code: R05; Problem Code Type: ICD-10; RUPAL BARILLAS MD [address], [facility] [address] [facility] 14:21:53 Xerostom ia 97855677 Completed 202006/06/2021 Problem Code: R68.2; Problem Code Type: ICD-10; [facility] 4 12:49:03 Candidal vulvovag initis 83012416 Completed 201301/02/2023 Problem Code: 112.1; Problem Code Type: ICD-9; Not Available [facility] 3 04:10:25 Intestin al disaccha ridase deficien cy 25486863 Completed 201301/02/2023 Problem Code: 271.3; Problem Code Type: ICD-9; Not Available [facility] 3 04:10:25 Acute bronchit is 69204468 Completed 201912/26/2020 Problem Code: J20.9; Problem Code Type: ICD-10; Not Available [facility] 3 04:10:26 Peripher al nerve disease 180161854 Completed 201301/02/2023 Not Available [facility] 3 04:10:26 Acute upper respirat ory infectio n 09267182 Completed 202205/13/2023 Problem Code: J06.9; Problem Code Type: ICD-10; MD Livan RODRIGUEZ Dr, [place] [address] , [facility] 4 13:45:04 Diastoli c heart failure 213064461 Active 2022 echo 03/[address], [place] [address] , [facility] 3 11:17:46 Chest pain 09362500 Completed 202205/13/2023 Problem Code: R07.89; Problem Code Type: ICD-10; MD Livan RODRIGUEZ Dr, [address] 4 13:45:03 Aortic stenosis , non-rheu matic 698345594 Active 2022 mild 03/2023 echo MD Livan RODRIGUEZ Dr, [address] 4 06:52:21 Senile hyperker atosis 136906213 Completed 202205/13/2023 Problem Code: L82.1; Problem Code Type: ICD-10; MD Livan RODRIGUEZ Dr, [place] [address] , [facility] 4 13:45:03 Melanocy tic nevus 047225297 Completed 202205/13/2023 Problem Code: D22.9; Problem Code Type: ICD-10; MD Livan RODRIGUEZ Dr, [address] 4 13:45:04 Incoordi nation 253109488 Completed 202205/13/2023 01/31/20 23 - Comments only - Rupal Barillas MD - neuro exam not c/w CVA; will eval further at next visit. Problem Code: R27.9; Problem Code Type: ICD-10; MD [address]ivan [address], [place], [address] , [facility] 4 13:45:03 Dyspnea 502022512 Completed 202205/13/2023 Problem Code: R06.09; Problem Code Type: ICD-10; MD [address]ivan [address], [place], [address] , [facility] 4 13:45:03 Chronic diarrhea 619889594 Active 2023 [facility] 4 12:37:57 Drug-ind uced xerostom ia 359626278 Active [address], [place], [address] , [facility] 4 13:38:38 Microalb uminuric diabetic nephropa thy 334331066 Active 2023 [facility] 12:45:11 Dyspnea on exertion 08117804 Active 2023 [facility] 4 12:37:57 Angular cheiliti s 869423974 Active 2023 [facility] 4 12:36:56 Xerostom ia 26821958 Active 2023 [facility] 4 12:49:03 History of adenomat ous polyp of colon 756691043 Active 2020 [facility] 4 12:43:44 Sialoade nitis 78835003 Completed 202308/09/[address], [place], [address] , [facility] 4 16:48:36 Low back pain 415706559 Active 2023 Problem Code: M54.5; Problem Code Type: ICD-10; AMADEO GLEASON, HEALTH INFORMATION ASSISTANT [address], [facility] [address] [place] [address] 4 14:31:55 Chest pain on exertion 78648210 Active [address], [address] 4 12:24:41 Always hungry 225957021 Active [address], [address] 4 16:38:32 Altered bowel function 78463417 Active [address], [address] 4 16:38:44 Atypical chest pain 527040571 Active 2023 DORIS JONES MA null, [facility] 4 07:31:04 Acquired thromboc ytopenia 89663587 Active [address], [address] 4 09:56:08 Actinic keratosi s 783400399 Active [address], [facility] [address] [place] [address] 4 13:34:57 Nodule of lung 821692977 Active 2023 probable lipoma by PET. (benign) MD Livan RODRIGUEZ Dr, [facility] [address] [place] [address] 4 06:49:28 Minimal cognitiv e impairme nt 833230462 Active [address], [facility] [address] , [facility] 4 15:05:52 New daily persiste nt headache 88490849448 9105 Active [address], [facility] [address] , [facility] 4 16:29:33 Lichen sclerosu s of vulva 050682889 Active [address], [place] [address] , [facility] 4 15:22:25 Milia 323987813 Active [address], [place] [address] , [facility] 4 15:51:39 Obstruct keshia sleep apnea syndrome 93458932 Active 2023 DORIS JONES MA null, [facility] 4 09:39:29 Atherosc lerosis Active 2023 DORIS JONES MA null, [facility] 4 09:39:44 Cirrhosi s - non-alco holic 934096269 Active 2023 with esoph varices and low PLT but no ascites, jaundice or sx. MD Livan RODRIGUEZ Dr, [facility] [address] , [facility]. 4 06:56:02 Vulvitis 96548850 Active [address], [facility] [address] , [facility] 4 13:20:01 Thromboc ytopenic disorder 232343789 Active [address], [facility] [address] , [facility] 4 13:23:28 Decompen sated cirrhosi s of liver 311147060 Active [address], [place], [address] , [facility] 4 14:23:47 Type 2 diabetes mellitus without complica tion 195224238 Active 2023 Problem Code: E11.9; Problem Code Type: ICD-10; IN[address], [place], [address] , [facility] 4 15:17:00 Coronary arterios clerosis 76803436 Active 2023 DORIS JONES MA [facility], [facility] 4 12:31:32 Hyperpig mentatio n of skin 97593487 Active [address], [place], [address] , [facility] 4 15:19:42 Pneumoni a 736518074 Completed 202303/27/2024 10/30/19 23 - Improved - [...] Code Type: ICD-10; MD Livan [address], [place], [address] , [facility] 4 14:21:53 Cough 32512737 Completed 202303/27/2024 Problem Code: R05.8; Problem Code Type: ICD-10; MD Livan [address], [place], [address] , [facility] 4 14:21:53 Notes:Some problems listed i n Document: #[id number] could not be added to this patient's chart. Please review this document and add these problems to the patient's chart manually as needed. Problem Notes None recorded. Procedures Surgical History Date Name Laterality Status Provider Name and Address Organization Details Recorded Time 4 Cryosurgery Multiple Actinic Keratoses completed MD Livan RODRIGUEZ Dr, [facility] [address], [facility] 03/06/2024 11:24:31 4 Cryosurgery Warts/Skin Tags completed MD Livan RODRIGUEZ Dr, [facility] [phone] [place] [address] 10/18/2023 15:47:48 4 Cryosurgery Warts/Skin Tags completed MD Livan RODRIGUEZ Dr, [facility] [phone] [place] [address] 10/07/2023 13:34:27 Imaging Results None recorded. Procedure Notes None recorded. Medical Equipment None Reported. Allergies Allergen ID Allergen Name Allergen Category Reaction Reaction Severity Criticality Documentation Date Start Date Code Code System Note Provider Name and Address Organization Details Recorded Time 28324 erythromy laura medicatio n other moderate Not available 02/15/20232013 4053 RxNorm stoma ch pain [facility] 12:53:11 95416 Bactrim medicatio n itching moderate Not available 08/01/20232013 15806 9 RxNorm itchy skin Gail Puckett [facility] 12:51:33 08861 codeine medicatio n itching moderate Not available 08/01/20232013 2670 [facility] , [facility] 12:52:07 03945 Demerol medicatio n other moderate Not available 08/01/20232013 07173 1 RxNorm can' t sleep Gail rodriguez, [facility] 4 12:52:55 22548 simvastat in medicatio n nausea moderate Not available 08/01/20232013 93072 RxNorm (LEFTY GINOHUDSON Lacey) [facility] 4 12:53:40 28185 Trulicity medicatio n vomiting moderate low 09/25/2023 06902 96 RxNorm RUPAL BARILLAS MD [address], [place], [address] [place] [address] 4 12:57:22 Medications Name Sig Start Date [...] once a day 12/[address] Wallis, [facility], after August 2022 OV Not Available Not [...] x 32 Use 1 needle subcutan eously daily 2024 active Not Available Not Available Not Avai lable Probiotic 10 billion cell capsule 3 tablet once a day 10/03/ 2014 12/11 /2023 completed Not Available Not Available Not Available [...] Relief 50 mcg/actua tion nasal spray,moraima pension [place] 1 spray into both nostrils once a [...] Updated DateTime 4 154.94 cm 26.5 kg/m2 17126.9 3 g 97.6 [degF] 97 % 97 % 83 /min 120 mm[Hg] 58 mm[Hg] ABDIRAHMAN MURRY RN [place] [facility] 4 14:13:12 Social History Question Answer Notes LastModified by Organizat ion Details LastModified Time Tobacco Smoking Status Never Smoker GIOVANNA ASIF, [place] [facility]. 03/18/2023 15:57:23 Would You Say That, In General, Your Health Is Good [email or web address] Information not available 08/09/2023 How Often Does Anyone, Including Family, Physically Hurt You? Never [email or web address] Information not available 08/09/2023 How Often Does Anyone, Including Family, Insult Or Talk Down To You? Rarely Information no t available 08/09/2023 How Often Does Anyone, Including Family, Threaten You With Harm? Never Information not available 08/09/2023 How Often Does Anyone, Including Family, Scream Or Curse At You? Never [email or web address] Information not available 08/09/2023 Within The Past [...] Would You Say It Is: Somewhat Hard [email or web address] Information not available 08/09/2023 In The Past 12 Months, Has Lack Of Reliable Transportation Kept You From Medical Appointments, Meetings, Work Or From Getting Things Needed For Daily Living? No [email or web address] Information not available 08/09/2023 What Is Your Housing Situation Today? I Have Housing. [email or web address] Information not available 08/09/2023 How Often In The Past Year Have You Used Marijuana (including Smoking, Vaping, Dabbing, Or Edibles)? Never [email or web address] Information not available 08/09/2023 How Often In The Past Year Have You Used Prescription Medications That Were Not Prescribed To You? Never [email or web address] Information not available 08/09/2023 How Often In The Past Year Have You Taken Your Own Prescription Medication More Than The Way It Was Prescribed Or For Different Reasons Than Its Intended Purpose? Never [email or web address] Information not available 08/09/2023 How Often In The Past Year Have You Used Other Drugs (for Example, Heroin, Cocaine, Meth, Salvia, Inhalants)? Never [email or web address] Information not available 08/09/2023 Have You Ever Used IV Drugs? No [email or web address] Information not available 08/09/2023 Date Of Most Recent SBINS 08/09/2023 [email or web address] Information not available 08/09/2023 What Was The Date Of Your Most Recent Tobacco Screening? 10/18/2023 [email or web address] Information n ot available 10/18/2023 Has Tobacco Cessation Counseling Been Provided? No [email or web address] Information not available 10/25/2023 Do You Or Have You Ever Used Any Other Forms Of Tobacco Or Nicotine? No [email or web address] Information not available 03/18/2023 Sex: Female Functional [...] high-dose, trivalent, PF 4 completed GIOVANNA ASIF [facility] 01/09/2024 16:25:43 COVID-19, mRNA, LNP-S, PF, mayito-sucrose, 30 mcg/0.3 mL 4 completed GIOVANNA ASIF [facility] 01/09/2024 16:25:43 Td (adult), 2 Lf tetanus toxoid, preservative free, adsorbed 7 completed Not Available [facility] 02/15/2023 05:29:32 Hep A-Hep B 7 completed Not Available [facility] 02/15/2023 05:29:32 Hep A-Hep B 6 completed Not Available [facility] 02/15/2023 05:29:32 Tdap 7 completed Not Available [facility] 02/15/2023 05:29:32 Pneumococcal conjugate PCV 13 7 completed Not Available [facility] 02/15/2023 05:29:32 Td(adult) unspecified formulation 6 completed Not Available [facility] 02/15/2023 05:29:32 Influenza, split virus, trivalent, preservative 6 completed Not Available [facility] 02/15/2023 05:29:32 Influenza, split virus, trivalent, preservative 5 completed Not Available [facility] 02/15/2023 05:29:32 Influenza, split virus, quadrivalent, PF 2 completed Not Available [facility] 02/15/2023 05:29:33 Influenza, split virus, quadrivalent, PF 3 completed Not Available [facility] 02/15/2023 05:29:33 Influenza, split virus, quadrivalent, preservative 7 completed Not Available [facility] 02/15/2023 05:29:33 Influenza, split virus, quadrivalent, preservative 8 completed Not Available [facility] 02/15/2023 05:29:33 Influenza, high-dose, quadrivalent, PF 1 completed Not Available [facility] 02/15/2023 05:29:33 COVID-19, mRNA, LNP-S, PF, 100 mcg/0.5mL dose or 50 mcg/0.25mL dose 1 completed Not Available [facility] 02/15/2023 05:29:33 COVID-19, mRNA, LNP-S, PF, 100 mcg/0.5mL dose or 50 mcg/0.25mL dose 1 completed Not Available [facility] 02/15/2023 05:29:33 COVID-19, mRNA, LNP-S, PF, 100 mcg/0.5mL dose or 50 mcg/0.25mL dose 2 completed Not Available [facility] 02/15/2023 05:29:33 SARS-COV-2 (COVID-19) vaccine, UNSPECIFIED 1 completed Not Available [facility] 02/15/2023 05:29:34 COVID-19, mRNA, LNP-S, bivalent, PF, 30 mcg/0.3 mL dose 3 completed Not Available [facility] 02/15/2023 05:29:34 COVID-19, mRNA, LNP-S, bivalent, PF, 30 mcg/0.3 mL dose 2 completed Not Available [facility] 02/15/2023 05:29:34 pneumococcal polysaccharide PPV23 7 completed Not Available [facility] 02/15/2023 05:29:34 pneumococcal polysaccharide PPV23 5 completed Not Available [facility] 02/15/2023 05:29:34 pneumococcal polysaccharide PPV23 1 completed Not Available [facility] 02/15/2023 05:29:34 Hep B, adult 7 completed Not Available [facility] 02/15/2023 05:29:34 influenza, unspecified formulation 8 completed Not Available [facility] 02/15/2023 05:29:34 influenza, unspecified formulation 4 completed Not Available [facility] 02/15/2023 05:29:34 influenza, unspecified formulation 9 completed Not Available [facility] 02/15/2023 05:29:35 Influenza, high-dose, quadrivalent, PF 3 completed Not Available [facility] 04/19/2023 05:31:38 COVID-19, mRNA, LNP-S, PF, mayito-sucrose, 30 mcg/0.3 mL 3 completed Not Available [facility] 04/19/2023 05:31:38 Past Encounters Encounter ID Performer Location Encounter Start Date Encounter Closed Date Diagnosis/Indication Diagnosis SNOMED-CT Code Diagnosis ICD10 Code Diagnosis Note [id number] RUPAL BARILLAS MD [address] [address] 03/04/2024 13:41:07 03/04/2024 14:36:13 Neuropathy due to type 2 diabetes mellitus [id number] 37329 E11.40 Actinic keratosis L57.0 L eyelid, treated with cryotherap y today, re-eval at next OV. Decompensa nate cirrhosis of liver 682741630 K74.60 Chronic diarrhea 8636014 09 K52.9 Castillo's esophagus 3029 75941 K22.70 Atypical chest pain 1025 63629 R07.89 Psychophys iologic insomnia 557322469 F51.04 Cough 40568915 R05.9 [id number] RUPAL BARILLAS MD [address] [address] 03/17/2024 13:44:52 03/17/2024 16:08:58 Acute lower respiratory tract infection 263046167 J22 Findings concerning for possible pneumonia. Advised ER evaluation . Updated Brice provider. Her will bring her directly there. Acute confusion 31649199 0 R41.0 She was unable to give me any details and seemed more confused than usual, concerning for possible delirium. Advised ER evaluation . Her [id number] EMORY FOSTER LPN [address] [address] 03/23/2024 11:25:55 03/23/2024 11:44:16 Hypokalemia 11532158 E87.6 [id number] RUPAL BARILLAS MD [address] [address] 03/27/2024 13:41:08 03/27/2024 14:39:35 Esophageal varices without bleeding 86095371 I85.00 Neuropathy due to type 2 diabetes mellitus 4966247034 07149 E11.40 Mild inter mittent asthma 555950483 J45.20 History of urinary tract infection 5146610453 107 Z87.440 Minimal co gnitive impairment 880443152 R41.89 has f/u for cognitive scg with [facility] scheduled. Encouraged use of lists. Chronic diarrhea 7690490 09 K52.9 Health Concerns Section Related Observation LastModified by Organization Detai ls LastModified Time None Recorded Concern Status LastModified by Organization Details LastModified Time None Recorded Payers Encounter Date Sequence Insurance Name Policy Number Policy Lucas Covered Member ID Lucas Member ID Guarantor Name 03/27/2024 1 [id number]/A DVANTAGE - PPO) [id number] Milka Corbett [id number] Milka Corbett Notes Date Note Type [...] that caused shaking. She was admitted to [facility] for two nights. RUPAL BARILLAS MD [address], [place], [address], [facility]. 03/27/2024 15:31:44 OBGyn Episode No OBEpisode recorded.
--- OUTSIDE RECORDS SUMMARY | 2024-05-18 16:55 | XMS_ITS | Encounter Summary ---
Author Organization [facility] [place] [address] Care Team Providers Care Billing Machine Operator Name Role Phone Aysha Johnson MD Primary Care Provider [phone] Encounter Details Date Type Department Care Team (Late st Contact Info) Description 03/17/2024 Interpretation Only [facility] in [facility] [address] [place] [address] Zoe Lay, SUPERINTENDENT DRILLING [address] [place] [address] [id number] Social History Tobacco Use Types Packs/Day Years [...] PM EST) PT CLASS E RAD ADMITDTTM [id number] [facility] PT RAD INFO [id number]^KEYANA^C HELSEA^L [facility] EXAM DESC XCXR2^XR CHEST 2V PA AND LATERAL^RIS [facility] WORKSTATION ID [id number] [facility] Anatomical Region [...] have questions please contact the health care consultant that requested your imaging first. ? Narrative [...] who have questions please contactthe health care consultant that requested your imaging first. Zoe Lay SUPERINTENDENT DRILLING IMG DX ORDERABLES documented in this encounter Visit Diagnoses Not on filedocumented in this encounter Care Teams Billing Machine Operator Relationship Specialty Start Date End Date Aysha Johnson MD [address] [place] [address] PCP - General Family Medicine 12/12/23 documented as of this encounter
--- OUTSIDE RECORDS SUMMARY | 2024-05-18 16:55 | XMS_ITS | Encounter Summary ---
Author Organization [facility] [place] [address] Care Team Providers Care Corporate Quality Assurance Manager Name Role Phone Aysha Johnson MD Primary Care Provider [phone] Reason for Visit * Diagnostic Test (Routine) - Closed Specialty Diagnoses / Procedures Referred By Contac t Referred To Contact Radiology Diagnoses Chest pain on breathing Procedures NM Pharmacologic Stress and Rest Myocardial Perfusion NM Exercise Stress and Rest Myocardial Perfusion Jac Cheng MD [facility] [place] [address] [facility] [place] [address] Referral ID Status Reason Start Date Expiration Date V isits Requested Visits Authorized [id number] Closed Specialty Service Requested 12/10/2023 06/08/2025 1 1 Encounter Details Date Type Department Care Team (Latest Contact Info) Description 12/20/2023 9:39 AM EDT Hospital Encounter [place] [address] Rebeka Orosco MD [facility] [place] [address] Chest pain on breathing Discharge Disposition: Home Social History Tobacco Use Types Packs/Day Years Used Date Smoking Tobacco: Never Smokeless Tobacco: Never Alcohol Use Standard Drinks/Week Comments Yes 0 (1 standard drink = 0.6 oz pur e alcohol) once per year [facility] Inpatient Questions Answer Date Recorded Does [...] type, unspecified whether angina present, unspecified whether nikolski or transplanted heart Place 1 tablet under the tongue every 5 minutes as needed for Chest pain. 25 tablet 12 12/13/2023 isosorbide mononitrate CR (Imdur) 30 mg ER 24 hr tablet Take 30 mg by mouth 2 times daily. aspirin EC 81 mg EC (DR) tablet Take 1 tablet by mouth daily. albuteroL 90 mcg/actuation inhaler (HFA) Inhale 2 puffs into the lungs every 6 hours as needed for Wheezing or Shortness of Breath. Jardiance 25 mg tablet Take 1 tablet by mouth daily. carvediloL (Coreg) 6.25 mg tabletIndications:Port al hypertension [...] directed. 05/02/2020 fluticasone propionate (FLONASE) 50 mcg/actuation [place], Suspension 1 spray daily. pramipexole (MIRAPEX) 0.125 mg Tablet Take 0.5 mg by mouth nightly. 07/28/2018 gabapentin (NEURONTIN) 600 mg Tablet Take 600 mg by mouth 2 times daily. metFORMIN (GLUCOPHAGE) 1,000 mg tablet Take 1,000 mg by mouth 2 times daily (with meals). fish oil-omega-3 fatty acids with vitamin E 1,000 mg Capsule Take 3,000 mg by mouth daily. multivitamin (THERAGRAN) tablet Take 1 tablet by mouth daily. ranolazine ER (Ranexa) 500 mg ER 12 hr tabletIndications:Luis nary artery disease, unspecified vessel or lesion type, unspecified whether angina present, unspecified whether nikolski or transplanted heart Take 1 tablet by mouth 2 times daily. 60 tablet 12/13/2023 04/28/2024 ccyliugixg-yfparnj-mov feine (Fiorinal) 50-325-40 mg tablet Take 1 tablet by mouth every 6 hours as needed for Headaches. 04/28/2024 clobetasoL (Temovate) 0.05 % Cream Apply topically 2 times daily. 10/18/2023 04/28/2024 clotrimazole (LOTRIMIN) 1 % Cream Apply topically 2 times daily. 11/03/2023 04/28/2024 SITagliptin phosphate (Januvia) 50 mg tablet Take 1 tablet by mouth daily. 11/08/2023 04/28/2024 torsemide (Demadex) 10 mg tablet Take 1 tablet by mouth daily. 12/03/2023 04/28/2024 traZODone (Desyrel) 50 mg tablet Take 50 mg by mouth nightly. 04/28/2024 amitriptyline (Elavil) 50 mg tablet Take 1 tablet by mouth nightly. 12/23/2023 metoprolol succinate XL (Toprol-XL) 25 mg ER 24 hr tablet Take 37.5 mg by mouth Daily @ 0600. 04/28/2024 omeprazole (PriLOSEC) [address] capsuleIndications:Gas troesophageal reflux disease without esophagitis TAKE 1 CAPSULE BY MOUTH DAILY 90 capsule 1 04/29/2023 01/20/2024 diphenhydrAMINE (BENADRYL) 25 mg Capsule Take 25 mg by mouth every 6 hours as needed for Itching. 04/28/2024 fenofibrate (TRICOR) 145 mg Tablet Reported on 08/21/2016 02/17/2015 04/28/2024 nystatin (MYCOSTATIN) 100,000 unit/mL Suspension as needed. 0 05/19/2015 04/28/2024 triamcinolone (KENALOG) 0.1 % cream Apply 1 Application topically as needed. 04/28/2024 lisinopril-hydrochloro thiazide (PRINZIDE;ZESTORETIC) 10-12.5 mg per tablet Take 1 tablet by mouth daily. 04/28/2024 acetaminophen (TYLENOL) 325 mg tablet Take 650 mg by mouth every 4 hours as needed. 04/28/2024 FEXOFENADINE HCL (JESÚS ORAL) Take 100 mg by mouth as needed. Reported on 08/21/2016 04/28/2024 docusate sodium (COLACE) 100 mg capsule Take by mouth. 02/24/2009 04/28/2024 documented as of this encounter Plan of Treatment Not on file documented as of this encounter Procedures Procedure Name Priority Date/Time Associated Diagnosis Comments NM PHARMACOLOGIC STRESS AND REST MYOCARDIAL PERFUSION Routine 12/20/2023 11:27 AM EDT Chest pain on breathing documented in this encounter Results * NM Pharmacologic Stress and Rest Myocardial Perfusion (12/20/2023 11:27 AM EDT) [employer] WORKSTATION ID [id number] DH RAD Anatomical Region Laterality Modality Nuclear Medicine Impressions [...] who have questions please contact the health manager progressive care that requested your imaging first. ? [...] patients who have questions please contactthe health manager progressive care that requested your imaging first. Rebeka Orosco MD [facility] [place] ORDERABLES documented in this encounter Visit [...] mCi documented in this encounter Care Teams Corporate Quality Assurance Manager Relationship Specialty Start Date End Date Aysha Johnson MD [address] [place] [address] PCP - General Family Medicine 12/12/23 documented as of this encounter
--- OUTSIDE RECORDS SUMMARY | 2024-05-18 16:55 | XMS_ITS | Encounter Summary ---
Author Organization [facility] [place] [address] Care Team Providers Care Rail Manager Name Role Phone Aysha Johnson MD Primary Care Provider [phone] Encounter Details Date Type Department Care Team (Late st Contact Info) Description 01/06/2024 Telephone Cardiology at [address] [phone] Katelynn Fan, RN Social History Tobacco Use Types Packs/Day Years Used Date Smoking Tobacco: Never Smokeless Tobacco: Never Alcohol Use Standard Drinks/Week Comments Yes 0 (1 standard drink = 0.6 oz pur e alcohol) once per year [facility] Inpatient Questions Answer Date Recorded [...] Katelynn Fan RN, BSN Ambulatory Cardiology Clinic, [facility] [phone] * Telephone Encounter - Katelynn Fan RN [...] be stopped. As per his note from [facility] 12/26: Chest pain may be secondary to [...] Katelynn Fan RN, BSN Ambulatory Cardiology Clinic, [facility] [phone] documented in this encounter Plan of Treatment Not on file documented as of this encounter Visit Diagnoses Not on filedocumented in this encounter Care Teams Rail Manager Relationship Specialty Start Date End Date Aysha Johnson MD [address] [place] [address] PCP - General Family Medicine 12/12/23 documented as of this encounter
--- OUTSIDE RECORDS SUMMARY | 2024-05-18 16:55 | XMS_ITS | Encounter Summary ---
Author Organization [facility] [place] [address] Care Team Providers Care Supervisor Core Drilling Name Role Phone Aysha Johnson MD Primary Care Provider [phone] Encounter Details Date Type Department Care Team (Late st Contact Info) Description 12/26/2023 Telephone Cardiology at [address] [phone] Agnieszka Vinson, RN Social History Tobacco Use [...] Miscellaneous Notes * Telephone Encounter - Agnieszka Vinson, RN - 12/26/2023 8:59 AM EDT Return [...] tomorrow. Patient verbalized understanding. Agnieszka Vinson RN [facility] Team Nurse [phone] documented in this encounter Plan of Treatment Not on file documented as of this encounter Visit Diagnoses Not on filedocumented in this encounter Care Teams Supervisor Core Drilling Relationship Specialty Start Date End Date Aysha Johnson MD [address] [place] [address] PCP - General Family Medicine 12/12/23 documented as of this encounter
--- OUTSIDE RECORDS SUMMARY | 2024-05-18 16:55 | XMS_ITS | Encounter Summary ---
Author Organization [facility] Address [facility] [place] [address] Care Team Providers Care Coat Baster Name Role Phone Aysha Johnson MD Primary Care Provider [phone] Reason for Referral * Consultation (Routine) - Closed Specialty Diagnoses / Procedures Referred By Contac t Referred To Contact Gastroenterology Diagnoses NAFLD (nonalcoholic fatty liver disease) chest pain dueto esopageal disease.NACL Yonathan Gibson MD [facility] [place] [address] Molly Cui, CLAY DRY PRESS HELPER [address] [facility] [place] [address] Referral ID Status Reason Start Date Expiration Date V isits Requested Visits Authorized [id number] Closed Consult, Test & Treat 12/27/2023 12/26/2024 1 1 Encounter Details Date Type Department Care Team (Late st Contact Info) Description 12/27/2023 11:00 AM EDT Office Visit Cardiology at [address] [address] Yonathan Gibson MD [facility] [place] [address] NAFLD (nonalcoholic fatty liver disease) [...] included. Came in for follow-up with history [facility] [place] [address] CARDIOLOGY OUTPATIENT PROGRESS NOTE PRIMARY CARE PROVIDER: Aysha Johnson MD REFERRING PROVIDER: Aysha Johnson PROBLEM LIST: Patient Active Problem List Diagnosis Hepatic cirrhosis Added automatically from request for surgery [id number] NAFLD (nonalcoholic fatty liver disease) Mixed incontinence Bladder cancer S/P hysterectomy Vaginal lesion MEDICATIONS: Current Outpatient Medications Medication Sig Dispense Refill nitroGLYcerin (Nitrostat) 0.[address] 1 tablet under the tongue every 5 minutes as needed for Chest pain. 25 tablet 12 isosorbide mononitrate CR (Imdur) 30 mg ER 24 hr tablet Take 30 mg by mouth 2 times daily. psyeghdyuw-jvjnpie-xkhrbskx (Fiorinal) 50-325-40 mg tablet Take 1 tablet [...] as directed. fluticasone propionate (FLONASE) 50 mcg/actuation [place], Suspension 1 spray daily. pramipexole (MIRAPEX) 0.125 [...] on file Social History Narrative Lives in [place], [place] with her of 10 years. She [...] Abdomen: Nondistended. Soft. Nontender. Extremities: No edema. HYDROELECTRIC PLANT OPERATOR: Normal mentation. Psych: Appropriate affect. Labs: [...] disease documented in this encounter Care Teams Coat Baster Relationship Specialty Start Date End Date Aysha Johnson MD [address] [place] [address] PCP - General Family Medicine 12/12/23 documented as of this encounter
--- OUTSIDE RECORDS SUMMARY | 2024-05-18 16:55 | XMS_ITS | Encounter Summary ---
[facility] [place] [address] Care Team Providers Care Android Platform Developer Name Role Phone Aysha Johnson MD Primary Care Provider [phone] Reason for Visit * Reason Comments Medication Refill Encounter Details Date Type Department Care Team (Late st Contact Info) Description 04/14/2024 Refill [place] [address] Molly Cui APRN [facility] [place] [address] Gastroesophageal reflux disease without esophagitis Social History Tobacco Use Types Packs/Day Years Used Date Smoking Tobacco: Never Smokeless Tobacco: Never Alcohol Use Standard Drinks/Week Comments Yes 0 (1 standard drink = 0.6 oz pur e alcohol) once per year [facility]CLUDES [facility] Inpatient Questions Answer Date Recorded Does [...] reflux documented in this encounter Care Teams Android Platform Developer Relationship Specialty Start Date End Date Aysha Johnson MD [address] [place], [place] [id number] PCP - General Family Medicine 12/12/23 documented as of this encounter
--- OUTSIDE RECORDS SUMMARY | 2024-05-18 16:55 | XMS_ITS | Encounter Summary ---
Author Organization [facility] Address [place] [address] Care Team Providers Care Oracle Apex Developer Name Role Phone Aysha Johnson MD Primary Care Provider [phone] Reason for Visit * Diagnostic Test (Routine) - Closed Specialty Diagnoses / Procedures Referred By Contac t Referred To Contact Radiology Diagnoses Chest pain on breathing Procedures NM Pharmacologic Stress CT Component NM Exercise Stress CT Component NM Pharmacologic Stress and Rest Myocardial Perfusion [facility] Jac Cheng MD [facility] [place] [address] [facility] Nuclear Med [address] [place] [phone] Referral ID Status Reason Start Date Expiration Date V isits Requested Visits Authorized [id number] Closed Specialty Service Requested 12/06/2023 06/05/2025 1 1 Encounter Details Date Type Department Care Team (Latest Contact Info) Description 12/20/2023 9:44 AM EDT - 12/20/2023 12:14 PM EDT Hospital Encounter [place] [address] [facility] [place] [address] Chest pain on breathing Discharge [...] type, unspecified whether angina present, unspecified whether [place] or transplanted heart Place 1 tablet [...] directed. 05/02/2020 fluticasone propionate (FLONASE) 50 mcg/actuation [place], Suspension 1 spray daily. pramipexole (MIRAPEX) 0.125 [...] type, unspecified whether angina present, unspecified whether [place] or transplanted heart Take 1 tablet by mouth 2 times daily. 60 tablet 12/13/2023 04/28/2024 syciqqvlxc-ayfphhv-amx feine (Fiorinal) 50-325-40 mg tablet Take 1 [...] Stress CT Component (12/20/2023 11:45 AM EDT) [employer] WORKSTATION ID [id number] DH RAD Anatomical Region Laterality Modality Nuclear [...] have questions please contact the health manager primary care that requested your imaging first. ? Electronically signed by: Ed Benavides MD, [facility] ([phone]), at 12/20/2023 1:52 PM Narrative 12/20/2023 1:52 [...] who have questions please contactthe health manager primary care that requested your imaging first. Electronically signed by: dE Benavides MD, [facility]([phone]), at 12/20/2023 1:52 PM Rebeka Orosco MD [...] mCi documented in this encounter Care Teams Oracle Apex Developer Relationship Specialty Start Date End Date Aysha Johnson MD [address] [place] [address] PCP - General Family Medicine 12/12/23 documented as of this encounter
--- OUTSIDE RECORDS SUMMARY | 2024-05-18 16:55 | XMS_ITS | Encounter Summary ---
Author Organization Count Includes [facility] [place] [facility] [address] Care Team Providers Care Filter Changer Name Role Phone Aysha Johnson MD Primary Care Provider Reason for Visit * Diagnostic Test (Routine) - Closed Specialty Diagnoses / Procedures Referred By Contac t Referred To Contact Radiology Diagnoses Chest pain on breathing Procedures NM Pharmacologic Stress and Rest Myocardial Perfusion NM Exercise Stress and Rest Myocardial Perfusion Jac Cheng MD [facility] [place] [address] [facility] [place] [address] Referral ID Status Reason Start Date Expiration Date V isits Requested Visits Authorized [id number] Closed Specialty Service Requested 12/10/2023 06/08/2025 1 1 Encounter Details Date Type Department Care Team (Latest Contact Info) Description 12/20/2023 9:41 AM EDT - 12/20/2023 9:43 AM EDT Hospital Encounter [place] [address] Rebeka Orosco MD [facility] [place] [address] Discharge Disposition: Home Social History Tobacco Use Types Packs/Day Years Used Date Smoking Tobacco: Never Smokeless Tobacco: Never Alcohol Use Standard Drinks/Week Comments Yes 0 (1 standard drink = 0.6 oz pur e alcohol) once per year [facility] Inpatient Questions Answer Date Recorded Does [...] type, unspecified whether angina present, unspecified whether [place] or transplanted heart Place 1 tablet under [...] directed. 05/02/2020 fluticasone propionate (FLONASE) 50 mcg/actuation [place], Suspension 1 spray daily. pramipexole (MIRAPEX) 0.125 [...] type, unspecified whether angina present, unspecified whether [place] or transplanted heart Take 1 tablet by mouth 2 times daily. 60 tablet 12/13/2023 04/28/2024 zomwsaafqn-ykppbhp-rpn feine (Fiorinal) 50-325-40 mg tablet Take 1 [...] Stress CT Component (12/20/2023 11:45 AM EDT) [facility] WORKSTATION ID [id number] DH RAD Anatomical Region Laterality Modality Nuclear [...] interpretation and agree with the findings, Ed Benavidse MD at 12/20/2023 1:52 PM Thank you for letting us participate in the care of this patient. ??If you are a health care provider and have any questions regarding this report, please contact the number below. ??For patients who have questions please contact the health childcare center director that requested your imaging first. ? Narrative [...] patients who have questions please contactthe health childcare center director that requested your imaging first. Rebeka Orosco MD [facility] [place] ORDER[place]LES * NM Pharmacologic Stress and Rest Myocardial Perfusion (12/20/2023 11:27 AM EDT) WORKSTATION ID [id number] DH RAD Anatomical Region Laterality Modality Nuclear [...] who have questions please contact the health childcare center director that requested your imaging first. ? Narrative [...] patients who have questions please contactthe health childcare center director that requested your imaging first. Rebeka Orosco MD IMG NM ORDERABLES documented in this encounter Visit Diagnoses Not on filedocumented in this encounter Care Teams Filter Changer Relationship Specialty Start Date End Date Aysha Johnson MD [address] [place] [address] PCP - General Family Medicine 12/12/23 documented as of this encounter
--- OUTSIDE RECORDS SUMMARY | 2024-05-18 16:55 | XMS_ITS | Encounter Summary ---
Author Organization [facility] Address [facility] [place] [address] Care Team Providers Care Radio Frequency Technician Name Role Phone Aysha Johnson MD Primary Care Provider [phone] Reason for Visit * Consultation (Routine) - Closed Specialty Diagnoses / Procedures Referred By Contac t Referred To Contact Gastroenterology Diagnoses NAFLD (nonalcoholic fatty liver disease) chest pain dueto esopageal disease.NACL Yonathan Gibson MD [facility] [place] [address] Molly Cui APRN [address] [facility] [place] [address] Referral ID Status Reason Start Date Expiration Date V isits Requested Visits Authorized [id number] Closed Consult, Test & Treat 12/27/2023 12/26/2024 1 1 Encounter Details Date Type Department Care Team (Late st Contact Info) Description 04/28/2024 2:00 PM EST Office [place] [address] Molly Cui APRN [facility] [place] [address] Hepatic cirrhosis, unspecified hepatic cirrhosis [...] Pulse 92 04/28/2024 1:56 PM EST Temperature - - Respiratory Rate - - Oxygen Saturation - - Inhaled Oxygen Concentration - - Weight 61.2 kg (135 lb) 04/28/2024 1:56 PM EST Height 154.9 cm (5' 1) 04/28/2024 1:56 PM EST Body Mass Index 25.51 04/28/2024 1:56 PM EST documented in this encounter Progress Notes * Molly Cui, LORETO - 04/28/2024 2:00 PM EST Images from the original note were not included. Hepatology Follow Up Note Patient: Milka Corbett Gender: female : 1940 Provider: Molly Cui NP Referring Physician: Aysha Johnson MD HISTORY OF PRESENT ILLNESS Milka Corbett is a 83 y.o. year old female With BA Cirrhosis who returns today for follow up in person. In March, had pneumonia, in hospital one night, then COVID, then had the stomach bug. Has been better for 2 weeks now. Didn't take any medications. She gets SOB when she goes up stairs. Pulmonology told her she has a touch of asthma. She had a cardiac workup for her sternal chest pain and pharmacologic stress CT showed no signs of ischemia, no abnormal perfusion. Cardiology wantedher to get an EGD to further evaluate for esophageal disorder, concern that varices could be contributing. Had sternal chest pain, has been present since before 01/2023. Pain is better now. Can go up stairs without the pain. Activity triggers the pain especially if shedoes it fast. Pain goes away when she stops moving within a minute. Has been taking Omeprazole and Gavescon, that heps the acid. That is diffierent than the pain when she goes up stairs. Needs to have repeat CT scan of lungs to follow up on lung nodule seen on Cardiac CT stress tests. She has been taking Carvedilol 6.25mg BID PAST MEDICAL/SURGICAL HISTORY 1. Cirrhosis due to [...] Outpatient Medications Marked as Taking for the 04/28/24 encounter (Office Visit) with Molly Cui APRN Medication Sig Dispense Refill omeprazole (PriLOSEC) [address] capsule TAKE 1 CAPSULE BY MOUTH DAILY 100 capsule 0 nitroGLYcerin (Nitrostat) 0.[address] 1 tablet under the tongue every 5 minutes as needed for Chest pain. 25 tablet 12 aspirin EC 81 mg EC (DR) tablet Take 1 tablet by mouth daily. albuteroL 90 mcg/actuation inhaler (HFA) Inhale 2 puffs into the lungs every 6 hours as needed for Wheezing or Shortness of Breath. carvediloL (Coreg) 6.25 mg tablet TAKE 1 TABLET BY MOUTH TWICE DAILY WITH MEALS 180 tablet 1 lisinopriL (Zestril) 10 mg tablet Take 1 tablet by mouth once a day for kidney protection atorvastatin (Lipitor) 20 mg Tablet Take 20 mg by mouth daily. Victoza 2-Jl 0.6 mg/0.1 mL (18 mg/3 mL) Pen Injector Inject 1.8 mg as directed. pramipexole (MIRAPEX) 0.125 mg Tablet Take 0.5 mg by mouth nightly. gabapentin (NEURONTIN) 600 mg Tablet Take 600 mg by mouth 2 times daily. metFORMIN (GLUCOPHAGE) 1,000 mg tablet Take 1,000 mg by mouth 2 times daily (with meals). fish oil-omega-3 fatty acids with vitamin E 1,000 mg Capsule Take 3,000 mg by mouth daily. multivitamin (THERAGRAN) tablet Take 1 tablet by mouth daily. Current Facility-Administered Medications for the 04/28/24 encounter (Office Visit) with Molly Cui APRN [...] of people Hydromorphone (Bulk) Itching Facial itiching Ranolazine Stomach aches Sulfamethoxazole-Trimethoprim Rash SOCIAL HISTORY Lives with her [...] 29 of acute hepatitis PHYSICAL EXAM Vitals: 04/28/24 1356 BP: 129/68 BP Location ([facility]): Left arm Patient Position: Sitting BP Cuff Sizes: Adult (25-34 cm) Pulse: 92 Weight: 61.2 kg (135 lb) Height: 154.9 cm (5' 1) Body mass index is 25.51 kg/m??. Appears well, conversational. Lab Results Component Value Date WBC 6.24 [...] years Sex: Female at 08/08/2023 12:19 PM 08/2023 Ultrasound 04/28/2024 IMPRESSION 1. Enlarged liver with coarse echogenic parenchyma and capsular nodularity, consistent with cirrhosis and likely steatosis. No focal hepatic parenchymal lesion. 2. Normal directional flow through the main portal vein. 3. Splenomegaly measuring 16.7 cm, possibly sequelae of portal hypertension. No ascites. 4. Surgically absent gallbladder. Normal common bile duct diameter. 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 # sternal chest pain - she has had sternal chest pain since prior to 01/2023 when she had her last EGD. Pain is worse with exertion and she has seen cardiology and had a thorough workup including a pharmacologic stress CT which did not show any signs of ischemia. Cardiology was concerned about esophageal disorder contributing to pain, however her symptoms are not related to food intake and she does not have any other symptoms of dysphagia. She does have GERD, and gets different symptoms from acid not related to this pain. She does have small varices, as those were seen on her last EGD 01/2023, however those would not cause sternal chest pain. She is taking Carvedilol 6.25mg BID appropriately for prophylaxis to variceal bleeding. If we were to repeat an EGD now I believe it would still show varices, but since she is taking Carvedilol she does not require banding. I do not believe a repeat EGD at this time would be of clinical benefit. It is also reassuring that her symptoms are improving. If they worsen, or any other signs such as dysphagia, we could consider repeating an EGD. 1. Cirrhosis. Diagnosed by fibroscan. Well compensated. MELD 7. 2. BA. Her metabolic risks include diabetes, hypertension, elevated cholesterol, overweight. She has been working on her weight and blood sugar and these have both improved. Continue Victoza 3. Portal hypertension. She has small varices , taking Carvedilol 6.25mg Bid, does not require repeat EGD for varices as long as she continues on Coreg for primary prophylaxis. 4. HCC surveillance. US today with no lesions, repeat in 6 months. 5. Hepatic encephalopathy. No symptoms today. 6. Lung nodule. Ffollow with PCP. 7. Preventative health. She should have annual flu vaccine. 8. 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 Continue Omeprazole. Plan: - Continue Carvedilol 6.25mg twice daily - Continue to monitor chest pain, if worsens can do EGD - Repeat US in 6 months and labs and visit. - Follow up with PCP regarding pulmonary nodule seen on stress CT, need for surveillance imaging. - Continue Omeprazole, gaviscon as needed. Molly Cui APRN Section of [place] [address] Copy: Aysha Johnson MD [address] / [place] [address] Time spent reviewing records prior to this encounter: 5 minutes Time spent during encounter with patient including counselin minutes Time spent documenting encounter on date of service: 5 minutes Approximate total time devoted to this single encounter on date of service: 35 minutes documented in this encounter Plan of Treatment Scheduled Orders Name Type Priority Associated Diagnoses Orde r Schedule US Abdomen Limited Hepatology Protocol Imaging Routine Hepatic cirrhosis, unspecified hepatic cirrhosis type, unspecified whether ascites present Expected: 10/26/2024 (Approximate), Expires: 04/28/2025 Comprehensive metabolic panel Non-fasting Lab Routine Hepatic cirrhosis, unspecified hepatic cirrhosis type, unspecified whether ascites present Expected: 10/26/2024 (Approximate), Expires: 04/28/2025 CBC (with Diff) Lab Routine Hepatic cirrhosis, unspecified hepatic cirrhosis type, unspecified whether ascites present Expected: 10/26/2024 (Approximate), Expires: 04/28/2025 Prothrombin Time Lab Routine Hepatic cirrhosis, unspecified hepatic cirrhosis type, unspecified whether ascites present Expected: 10/26/2024 (Approximate), Expires: 04/28/2025 AFP tumor marker Lab Routine Hepatic cirrhosis, unspecified hepatic cirrhosis type, unspecified whether ascites present Expected: 10/26/2024 (Approximate), Expires: 04/27/2025 documented as of this encounter Visit Diagnoses Diagnosis Hepatic cirrhosis, unspecified hepatic cirrhosis type, unspecified whether ascites present documented in this encounter Care Teams Radio Frequency Technician Relationship Specialty Start Date End Date Aysha Johnson MD [address] [place] [address] PCP - General Family Medicine 12/12/23 documented as of this encounter
--- OUTSIDE RECORDS SUMMARY | 2024-05-18 16:55 | XMS_ITS | Encounter Summary ---
Author [facility] [place] [address] Care Team Providers Care Spray Operator Name Role Phone Aysha Johnson MD Primary Care Provider [phone] Encounter Details Date Type Department Care Team (Latest Contact Info) Description 12/23/2023 10:30 AM EDT TH Visit (TeleHealth) [place] [address] Molly Cui, [facility] [place] [address] JIMENEZ (dyspnea on exertion); Hepatic cirrhosis, unspecified hepatic cirrhosis type, unspecified whether ascites present Social History Tobacco Use Types Packs/Day Years Used Date Smoking Tobacco: Never Smokeless Tobacco: Never Alcohol Use Standard Drinks/Week Comments Yes 0 (1 standard drink = 0.6 oz pur e alcohol) once per year [facility] Inpatient Questions Answer Date [...] She was previously seeing Dr. Ortega in [place] - [place], but he was in process of moving so [place] [facility] [place] He thought thtere was narrowing in aorta [...] Cui APRN Section of [place] [address] Copy: Aysha Johnson MD [address] / [place] [address] Time spent reviewing records prior to this [...] present documented in this encounter Care Teams Spray Operator Relationship Specialty Start Date End Date Aysha Johnson MD [address] [place] [address] PCP - General Family Medicine 12/12/23 documented as of this encounter
--- OUTSIDE RECORDS SUMMARY | 2024-05-18 16:55 | XMS_ITS | Encounter Summary ---
Author Organization [facility] [place] [address] Care Team Providers Care Sand Caster Name Role Phone Aysha Johnson MD Primary Care Provider [phone] Encounter Details Date Type Department Care Team [...] on filedocumented in this encounter Care Teams Sand Caster Relationship Specialty Start Date End Date Aysha Johnson MD [address] [place] [address] PCP - General Family Medicine 12/12/23 documented as of this encounter
--- OUTSIDE RECORDS SUMMARY | 2024-05-18 16:55 | XMS_ITS | Encounter Summary ---
Author Organization [facility] Address [facility] [place] [address] Care Team Providers Care Plasma Processing Centrifuge Operator Name Role Phone Aysha Johnson MD Primary Care Provider [phone] Encounter Details Date Type Department Care Team (Latest Contact Info) Description 12/20/2023 9:41 AM EDT - 12/20/2023 9:43 AM EDT Hospital Encounter Non-Invasive [place] [id number] Rebeka Orosco MD [facility] [place] [address] Chest pain on breathing Discharge Disposition: Home Social History Tobacco Use Types Packs/Day Years Used Date Smoking Tobacco: Never Smokeless Tobacco: Never Alcohol Use Standard Drinks/Week Comments Yes 0 (1 standard drink = 0.6 oz pur e alcohol) once per year [facility] Inpatient Questions Answer Date Recorded Does Anyone [...] type, unspecified whether angina present, unspecified whether [place] or transplanted heart Place 1 tablet under [...] directed. 05/02/2020 fluticasone propionate (FLONASE) 50 mcg/actuation [place], Suspension 1 spray daily. pramipexole (MIRAPEX) 0.125 [...] type, unspecified whether angina present, unspecified whether kaw or transplanted heart Take 1 tablet by mouth 2 times daily. 60 tablet 12/13/2023 04/28/2024 qkbfebgoav-xorbhbu-iwo feine (Fiorinal) 50-325-40 mg tablet Take 1 [...] Other Rebeka Orosco MD [facility] documented in this encounter Visit Diagnoses Diagnosis Chest pain on breathing Painful respiration documented in this encounter Care Teams Plasma Processing Centrifuge Operator Relationship Specialty Start Date End Date Aysha Johnson MD [address] [place] [address] PCP - General Family Medicine 12/12/23 documented as of this encounter
--- OUTSIDE RECORDS SUMMARY | 2024-05-18 16:55 | XMS_ITS | Encounter Summary ---
Author Organization [facility] Address [facility] [place] [address] Care Team Providers Care Batch Mixer Operator Name Role Phone Aysha Johnson MD Primary Care Provider [phone] Encounter Details Date Type Department Care Team (Latest Contact Info) Description 04/28/2024 10:41 AM EST - 04/28/2024 11:59 PM EST Hospital [place] [id number] Molly Wallis, [facility] [place] [address] Hepatic cirrhosis, unspecified hepatic cirrhosis type, unspecified [...] Sig Dispensed Refills Start Date End Date omeprazole (PriLOSEC) 40 mg capsuleIndications:Gas troesophageal reflux disease without esophagitis TAKE 1 CAPSULE BY MOUTH DAILY 100 capsule 04/14/2024 04/14/2025 nitroGLYcerin (Nitrostat) 0.3 mg sublingual tabletIndications:Luis nary artery disease, unspecified vessel or lesion type, unspecified whether angina present, unspecified whether huslia or transplanted heart Place 1 tablet under [...] directed. 05/02/2020 fluticasone propionate (FLONASE) 50 mcg/actuation [place], Suspension 1 spray daily. pramipexole (MIRAPEX) 0.125 [...] tablet Take 1 tablet by mouth daily. documented as of this encounter Plan of Treatment Not on file documented as of this encounter Procedures Procedure Name Priority Date/Time Associated Diagnosis Comments ABDOMEN LIMITED HEPATOLOGY PROTOCOL Routine 04/28/2024 11:13 AM EST Hepatic cirrhosis, unspecified hepatic cirrhosis type, unspecified whether ascites present documented in this encounter Results * US Abdomen Limited Hepatology Protocol (04/28/2024 11:13 AM EST) WORKSTATION ID [id number] RAD Anatomical Region Laterality Modality Abdomen Ultrasound [...] Electronically signed by: Jean Claude Bautista MD, [facility] ([phone]), at 04/28/2024 11:40 AM Thank you for letting us participate in the care of this patient. If you are a health care provider and have any questions regarding this report, please contact the number above. For patients who have questions, please contact the health critical care unit nurse that requested your imaging first. ?Jean Claude Bautista, Staff Physician Electronically Signed Final Report ?? 04/28/2024 11:48 am Narrative 04/28/2024 11:49 AM EST Abdominal ? (Signed Final 04/28/2024 11:48 am) PATIENT INFO: ID #: ? [id number] ?: ??[birth year] (83 yrs)(F) Name: ? MILKA MENDIETA ?Visit Date: 04/28/2024 11:05 am PERFORMED BY: Attending: ?Lily GALLO, Jean Claude Lancaster Resident: ? Jake Novak MD Performed By: ? Bobo RDMS, Monika Referred By: ?MOLLY WALLIS Secondary Phy.: ?? MOLLY WALLIS CAREER COORDINATOR Location: ? [place] [facility] Protocol - Abdominal ?59647 Limited Survey Single Organ or Quadrant - [id number] INDICATIONS: cirrhosis, screen for hcc ------ LIVER: [...] 04/28/2024 11:48 am) PATIENT INFO: ID #: [id number] : 42 (83 yrs)(F) Name: MILKA MENDIETA Visit Date: 04/28/2024 11:05 am PERFORMED BY: Attending: Jean Claude Bautista MD Resident: Jake Novak MD Performed By: Monika Gibbs RDMS Referred By: MOLLY WALLIS Secondary Phy.: MOLLY WALLIS APRN Location: [place] SERVICE[facility]S) [facility] - Hepatology Protocol - Abdominal 35677 Limited Survey Single Organ or Quadrant - [id number] INDICATIONS: cirrhosis, screen for hcc ------ LIVER: [...] Electronically signed by: Jean Claude Bautista MD, [facility] ([phone]), at 04/28/2024 11:40 AM Thank you for letting us participate in the care of this patient. If you are a health care provider and have any questions regarding this report, please contact the number above. For patients who have questions, please contact the health critical care unit nurse that requested your imaging first. Jean Claude Bautista, Staff Physician Electronically Signed Final Report 04/28/2024 11:48 am Molly Wallis APRN IMG US GEN ORDERAB LES documented in this encounter Visit Diagnoses Diagnosis Hepatic cirrhosis, unspecified hepatic cirrhosis type, unspecified whether ascites present documented in this encounter Care Teams Batch Mixer Operator Relationship Specialty Start Date End Date Aysha Johnson MD [address] [place] [address] PCP - General Family Medicine 12/12/23 documented as of this encounter
--- OUTSIDE RECORDS SUMMARY | 2024-05-18 16:55 | XMS_ITS | Encounter Summary ---
Author Organization [facility], 1928–[address] [place] [address] Care Team Providers Care Second Crusher Name Role Phone Aysha Johnson MD Primary Care Provider Encounter Details Date Type Department Care Team (Latest Contact Info) Description 04/28/2024 Travel Social History Tobacco Use Types Packs/Day [...] on filedocumented in this encounter Care Teams Second Crusher Relationship Specialty Start Date End Date Aysha Johnson MD [address] [place] [address] PCP - General Family Medicine 12/12/23 documented as of this encounter
--- OUTSIDE RECORDS SUMMARY | 2024-05-18 16:55 | XMS_ITS | Encounter Summary ---
Author Organization [facility] [place] [address] Care Team Providers Care Tube Worker Name Role Phone Aysha Johnson MD Primary Care Provider [phone] Reason for Visit * Diagnostic Test (Routine) - Closed Specialty Diagnoses / Procedures Referred By Contac t Referred To Contact Radiology Diagnoses Chest pain on breathing Procedures NM Pharmacologic Stress and Rest Myocardial Perfusion NM Exercise Stress and Rest Myocardial Perfusion Jac Cheng MD [facility] [place] [address] [facility] [place] [address] Referral ID Status Reason Start Date Expiration Date V isits Requested Visits Authorized [id number] Closed Specialty Service Requested 12/10/2023 06/08/2025 1 1 Encounter Details Date Type Department Care Team (Latest Contact Info) Description 12/20/2023 9:40 AM EDT Hospital En[place] [address] Rebeka Orosco MD [facility] [place] [address] Discharge Disposition: Home Social History Tobacco Use Types Packs/Day Years Used Date Smoking Tobacco: Never Smokeless Tobacco: Never Alcohol Use Standard Drinks/Week Comments Yes 0 (1 standard drink = 0.6 oz pur e alcohol) once per year [facility] Inpatient Questions Answer Date Recorded [...] type, unspecified whether angina present, unspecified whether chickahominy indian tribe or transplanted heart Place 1 tablet under [...] directed. 05/02/2020 fluticasone propionate (FLONASE) 50 mcg/actuation [place], Suspension 1 spray daily. pramipexole (MIRAPEX) [...] type, unspecified whether angina present, unspecified whether chick[place]om[place] indian tribe or transplanted heart Take 1 tablet by mouth 2 times daily. 60 tablet 12/13/2023 04/28/2024 yijurhpsnq-fhxbjzi-vbr feine (Fiorinal) 50-325-40 mg tablet Take 1 [...] Stress CT Component (12/20/2023 11:45 AM EDT) [email or web address] WORKSTATION ID [id number] DH RAD Anatomical Region Laterality Modality Nuclear [...] questions please contact the health healthcare management consultant that requested your imaging first. ? Electronically signed by: Ed Benavides MD, [facility] [place] [facility] ([phone]), at 12/20/2023 1:52 PM Narrative 12/20/2023 1:52 [...] have questions please contactthe health healthcare management consultant that requested your imaging first. Electronically signed by: Ed Benavides MD, [facility] [place] [facility]([phone]), at 12/20/2023 1:52 PM Rebeka Orosco MD IM NM ORDERABLES * NM Pharmacologic Stress and Rest Myocardial Perfusion (12/20/2023 11:27 AM EDT) WORKSTATION ID [id number] RAD Anatomical Region Laterality Modality Nuclear Medicine [...] questions please contact the health healthcare management consultant that requested your imaging first. ? Electronically signed by: Ed Benavides MD, [facility] [place] [facility] ([phone]), at 12/20/2023 1:52 PM Narrative 12/20/2023 1:52 [...] have questions please contactthe health healthcare management consultant that requested your imaging first. Electronically signed by: Ed Benavides MD, [facility] [place] [facility]([phone]), at 12/20/2023 1:52 PM Rebeka Orosco MD IMG NM ORDERABLES documented in this encounter Visit Diagnoses Not on filedocumented in this encounter Care Teams Tube Worker Relationship Specialty Start Date End Date Aysha Johnson MD [address] [place] [address] PCP - General Family Medicine 12/12/23 documented as of this encounter
--- OUTSIDE RECORDS SUMMARY | 2024-05-18 16:55 | XMS_ITS | Encounter Summary ---
Author Organization [facility] [place] [address] Care Team Providers Care Jute Bag Sewer Name Role Phone Aysha Johnson MD Primary Care Provider [phone] Encounter Details Date Type Department Care Team [...] on filedocumented in this encounter Care Teams Jute Bag Sewer Relationship Specialty Start Date End Date Aysha Johnson MD [address] [place] [address] PCP - General Family Medicine 12/12/23 documented as of this encounter
--- OUTSIDE RECORDS SUMMARY | 2024-05-18 16:56 | XMS_ITS | Encounter Summary ---
Author Organization [facility] [place] [address] Care Team Providers Care Division Leader Name Role Phone Salome Mcarthur APRN Primary Care Provider [phone] Encounter Details Date Type Department Care Team [...] on filedocumented in this encounter Care Teams Division Leader Relationship Specialty Start Date End Date Salome Mcarthur APRN [address] [place] [address] PCP - General Family Medicine 05/30/15 12/11/23 documented as of this encounter
--- OUTSIDE RECORDS SUMMARY | 2024-05-18 16:56 | XMS_ITS | Encounter Summary ---
Author Organization [facility] [place] [address] Care Team Providers Care Manager Publishing Name Role Phone Salome Mcarthur APRN Primary Care Provider [phone] Encounter Details Date Type Department Care Team (Latest Contact Info) Description 08/08/2023 12:35 PM EDT Laboratory Appointment Lab [address] [place] [address] Hepatic cirrhosis, unspecified hepatic cirrhosis type, unspecified [...] 12:19 PM EDT) Neutrophil % 63.4 % [facility] Neutrophil Absolute 3.44 1.70 - 6.10 x10(3)/[facility] Lymph % 24.0 % [facility] Lymphocytes Abs 1.3 0.9 - 3.2 x10(3)/[facility] Monocyte % 10.1 % [facility] Monocyte Abs 0.6 0.3 - 0.9 x10(3)/[facility] Eos % 1.5 % [facility] Eosinophils Abs 0.1 0.0 - 0.4 x10(3)/[facility] Basophil % 0.6 % [facility] Baso Absolute [...] Agency Comment Spec In Lab Molly Cui AIR BAG BUILDER HEMATOLOGY ORDERAB LES [facility] [place] [address] * (ABNORMAL) Hemogram (08/08/2023 12:19 PM EDT) Pathologist [facility] White Blood Cell 5.4 4.0 - 9.5 x10(3)/[facility] LAB[facility] Red Blood Cell 4.15 4.00 - 5.21 x10(6)/[facility] Hemoglobin 12.8 11.7 - 15.5 g/dL [facility] Hematocrit 38.5 35.7 - 45.8 % [facility] Mean Cell Volume 92.8 82.6 - 94.4 fL [facility] Mean Cell Hemoglobin 30.8 27.1 - 32.0 pg [facility] Mean Cell Hemoglobin Concentration 33.2 31.7 - 35.0 g/dL [facility] Platelet 78(L) 145 - 357 x10(3)/[facility] LABORATORY RDW Standard Deviation 45.4 37.0 - 46.0 [facility] RDW coefficient of variation 13.3 11.5 - 14.1 % [facility] Mean Platelet Volume 12.1 7.6 - 12.9 fL [facility] NRBC% auto 0.0 % [facility] NRBC Absolute 0.000 0.000 - 0.000 x10(3)/[facility] Blood 08/08/2023 12:1 9 PM EDT 08/08/2023 12:41 PM EDT Narrative Resulting Agency Comment Spec In Lab Molly Cui APRN HEMATOLOGY ORDERAB LES [facility] [place] [address] * (ABNORMAL) Comprehensive metabolic panel (non-fasting) (08/08/2023 12:19 PM EDT) Pathologist [facility] Glucose 110 65 - 199 mg/dL [facility] [...] APRN CHEMISTRY ORDERABL ES Performing Organization Address [facility] Co de Phone Number [facility] [place] [address] * Prothrombin Time (08/08/2023 12:19 PM EDT) [...] HEMATOLOGY ORDERAB LES Performing Organization Address [facility] Co de Phone Number [facility] [place] [address] documented in this encounter Visit Diagnoses Diagnosis Hepatic cirrhosis, unspecified hepatic cirrhosis type, unspecified whether ascites present documented in this encounter Care Teams Manager Publishing Relationship Specialty Start Date End Date Salome Mcarthur APRN [address] [place] [address] PCP - General Family Medicine 05/30/15 12/11/23 documented as of this encounter
--- OUTSIDE RECORDS SUMMARY | 2024-05-18 16:56 | XMS_ITS | Encounter Summary ---
[place] [address] Care Team Providers Care Protein Specialist Name Role Phone Salome Mcarthur APRN Primary Care Provider [phone] Reason for Referral * Consultation (Routine) - Closed Specialty Diagnoses / Procedures Referred By Contruth t Referred To Contact Hematology and Oncology Diagnoses Thrombocytopenia Leland Ortega MD [address] [place] [address] [facility] [address] [place] [address] Referral ID Status Reason Start Date Expiration Date V isits Requested Visits Authorized [id number] Closed Consult, Test & Treat 12/03/2023 12/02/2024 1 1 Encounter Details Date Type Department Care Team (Late st Contact Info) Description 12/03/2023 Transcribe Orders eDH Incoming Referrals [phone] Leland Ortega MD [facility] [place], [place] [address] Thrombocytopenia Social History Tobacco Use Types Packs/Day [...] as of this encounter Plan of Treatment Scheduled Referrals Name Type Priority Associated Diagnoses Order Schedule Referral to Hematology and Oncology Outpatient Referral Routine Thrombocytopenia Ordered: 12/03/2023 documented as of this encounter Visit Diagnoses Diagnosis Thrombocytopenia Thrombocytopenia, unspecified documented in this encounter Care Teams Protein Specialist Relationship Specialty Start Date End Date Salome Mcarthur, CLINICAL SCIENTIST [address] [place] [address] PCP - General Family Medicine 05/30/15 12/11/23 documented as of this encounter
--- OUTSIDE RECORDS SUMMARY | 2024-05-18 16:56 | XMS_ITS | Encounter Summary ---
Author Organization [facility] Address [facility] [place] [address] Care Team Providers Care Tractor Trailer Operator Name Role Phone Salome Mcarthur APRN Primary Care Provider [phone] Encounter Details Date Type Department Care Team (Late st Contact Info) Description 08/08/2023 1:30 PM EDT Office [place] [address] Lani Wallis APRN [facility] [place] [address] Hepatic cirrhosis, unspecified hepatic cirrhosis type, unspecified [...] Progress Notes * Lani Wallis APRN - 08/08/2023 1:30 PM EDT Hepatology Follow Up Note Patient: Nick Mendieta Gender: female : 1940 Provider: Lani Wallis NP Referring Physician: Salome Mcarthur APRN HISTORY OF PRESENT ILLNESS Nick Mendieta is a 83 y.o. year old female With BA Cirrhosis who returns today for follow up. Her mouth has been burning, has a dry mouth, using biotin and salt water. She was told she had someblockage in her glands which has been improving. Has been having a problem when she goes up stairs, she gets pain in her chest, She saw a junior manufacturing engineer, considered R heart cath and patient declined. Gets pain after climbing stairs, pain went away when she stopped moving. Has had acid reflux previously, taking Omeprazole 2 pills, at same time of day. She had an upper endoscopy in January 2023 which did not show any signs of ongoing reflux. Taking Metoprolol, prescribed by junior manufacturing engineer this winter. Tomorrow she is seeing her [...] for the 08/08/23 encounter (Office Visit) with Lani Wallis APRN Medication Sig Dispense Refill lisinopriL (Zestril) [...] for the 08/08/23 encounter (Office Visit) with Lani Wallis APRN [...] Vitals: 08/08/23 1338 BP: 129/56 BP Location ([facility]): Right arm Patient Position: Sitting BP [...] duct. 3. No ascites. 4. Splenomegaly. ASSESSMENT/PLAN Nick Mendieta is a 83 y.o. female with cirrhosis [...] to do with PCP, Aysha Johnson in [place]. -Follow-up in 6 months with labs and ultrasound Lani Wallis APRN Section of Gastroenterology [place] [address] Copy: Salome Mcarthur APRN [address] / [place] [address] Time spent reviewing records prior to this encounter: 5 minutes Time spent during encounter with patient including counselin minutes Time spent documenting encounter on date of service: 5 minutes Approximate total time devoted to this single encounter on date of service: 32 minutes documented in this encounter Plan of Treatment Scheduled Orders Name Type Priority Associated Diagnoses Orde r Schedule Comprehensive metabolic panel (non-fasting) Lab Routine Hepatic [...] Expires: 08/09/2024 documented as of this encounter Results * US Abdomen Limited Hepatology Protocol (04/28/2024 11:13 AM EST) WORKSTATION ID [id number] RAD Anatomical Region Laterality Modality Abdomen Ultrasound [...] Electronically signed by: Jean Claude Bautista MD, [facility] ([phone]), at 04/28/2024 11:40 AM Thank you for letting us participate in the care of this patient. If you are a health care provider and have any questions regarding this report, please contact the number above. For patients who have questions, please contact the health care mgr that requested your imaging first. ?Jean Claude Bautista, Staff Physician Electronically Signed Final Report ?? 04/28/2024 11:48 am Narrative 04/28/2024 11:49 AM EST Abdominal ? (Signed Final 04/28/2024 11:48 am) PATIENT INFO: ID #: ? [id number] ?: ??[birth year] (83 yrs)(F) Name: ? NICK Turner MENDIETA ?Visit Date: 04/28/2024 11:05 am PERFORMED BY: Attending: ?Lily GALLO, Jean Claude Lancaster Resident: ? Jake Novak MD Performed By: ? Monika Gibbs RDMS Referred By: ?LANI WALLIS Secondary Phy.: ?? LANI WALLIS DIRECTOR COMMUNICATIONS Location: ? [place] SERVICE(S) PROVIDED: [facility] - Hepatology Protocol - Abdominal ?69171 Limited Survey Single Organ or Quadrant - [id number] INDICATIONS: cirrhosis, screen for hcc ------ LIVER: [...] Procedure Note Jean Claude Bautista MD - 01/21/2025 Abdominal (Signed Final 04/28/2024 11:48 am) PATIENT INFO: ID #: [id number] : [birth year] (83 yrs)(F) Name: NICK MENDIETA Visit Date: 04/28/2024 11:05 am PERFORMED BY: Attending: Jean Claude Bautista MD Resident: Jake Novak MD Performed By: Monika Gibbs RDMS Referred By: LANI WALLIS [facility] Phy.: LANI WALLIS APRN Location: [place] SERVICE(S) PROVIDED: [facility] - Hepatology Protocol - Abdominal 27872 Limited Survey Single Organ or Quadrant - [id number] INDICATIONS: cirrhosis, screen for hcc ------ LIVER: [...] Electronically signed by: Jean Claude Bautista MD, [facility] ([phone]), at 04/28/2024 11:40 AM Thank you for letting us participate in the care of this patient. If you are a health care provider and have any questions regarding this report, please contact the number above. For patients who have questions, please contact the health care mgr that requested your imaging first. Jean Claude Bautista, Staff Physician Electronically Signed Final Report 04/28/2024 11:48 am Lani Wallis APRN IMG GEN ORDERAB LES documented in this encounter Visit Diagnoses Diagnosis Hepatic cirrhosis, unspecified hepatic cirrhosis type, unspecified whether ascites present Hepatic cirrhosis, unspecified hepatic cirrhosis type, unspecified whether ascites present documented in this encounter Care Teams Tractor Trailer Operator Relationship Specialty Start Date End Date Salome Mcarthur APRN [address] [place] [address] PCP - General Family Medicine 05/30/15 12/11/23 documented as of this encounter
--- OUTSIDE RECORDS SUMMARY | 2024-05-18 16:56 | XMS_ITS | Encounter Summary ---
Author Organization [facility] Address [facility] [place] [address] Care Team Providers Care Animal Ride Manager Name Role Phone Salome Mcarthur APRN Primary Care Provider [phone] Encounter Details Date Type Department Care Team (Late st Contact Info) Description 01/08/2023 Telephone Gastroenterology at [facility] [place] [address] KyleJuly Social History Tobacco Use Types Packs/Day [...] - 01/08/2023 12:22 PM EDT Milka Corbett [id number] Diagnosis/Indication: cirrhosis with varices Please review patient [...] procedure? No You must have a responsible green party who will drive you to your procedure, stay on campus for the entire duration of your procedure, and drive you home from your procedure. Who will likely be your taxi driver for the procedure? *Please Verify the [...] on filedocumented in this encounter Care Teams Animal Ride Manager Relationship Specialty Start Date End Date Salome Mcarthur APRN [address] [place] [address] PCP - General Family Medicine 05/30/15 12/11/23 documented as of this encounter
--- OUTSIDE RECORDS SUMMARY | 2024-05-18 16:56 | XMS_ITS | Encounter Summary ---
Author Organization [facility] [address] Care Team Providers Care Army Senior Officer Name Role Phone Salome Mcarthur APRN Primary Care Provider [phone] Encounter Details Date Type Department Care Team [...] on filedocumented in this encounter Care Teams Army Senior Officer Relationship Specialty Start Date End Date Salome Mcarthur APRN [address] [place] [address] PCP - General Family Medicine 05/30/15 12/11/23 documented as of this encounter
--- OUTSIDE RECORDS SUMMARY | 2024-05-18 16:56 | XMS_ITS | Encounter Summary ---
Author Organization [facility] Address [facility] [place] [address] Care Team Providers Care Ship Officer Name Role Phone Aysha Johnson MD Primary Care Provider [phone] Reason for Visit * Consultation (Routine) - Closed Specialty Diagnoses / Procedures Referred By Contac t Referred To Contact Cardiology Diagnoses JIMENEZ (dyspnea on exertion) Chest pain, unspecified type Aortic valve stenosis, etiology of cardiac valve disease unspecified Procedures CARDIAC CATHETERIZATION Leland Ortega MD [address] [place] [id number] [facility] [address] [place] [phone] Referral ID Status Reason Start Date Expiration Date V isits Requested Visits Authorized [id number] Closed Consult, Test & Treat 11/27/2023 11/26/2024 1 1 Encounter Details Date Type Department Care Team (Late st Contact Info) Description 12/13/2023 10:00 AM EDT Office Visit Cardiology at [address] [address] Yonathan Gibson MD [facility] [place] [address] Coronary artery disease, unspecified vessel or lesion type, unspecified whether angina present, unspecified whether [place] or transplanted heart Social History Tobacco Use [...] from the original note were not included. [facility] [place] [address] CARDIOLOGY OUTPATIENT PROGRESS NOTE PRIMARY CARE PROVIDER: Aysha Johnson MD REFERRING PROVIDER: Aysha Johnson PROBLEM LIST: Patient Active Problem List Diagnosis Hepatic cirrhosis Added automatically from request for surgery [id number] NAFLD (nonalcoholic fatty liver disease) Mixed incontinence Bladder cancer S/P hysterectomy Vaginal lesion MEDICATIONS: Current Outpatient Medications Medication Sig Dispense Refill jhcvnxxraa-mpewtxl-kcykybvz (Fiorinal) 50-325-40 mg tablet Take 1 tablet [...] as directed. fluticasone propionate (FLONASE) 50 mcg/actuation [place], Suspension 1 spray daily. pramipexole (MIRAPEX) [...] on file Social History Narrative Lives in [place], [place] with her of 10 years. She [...] Abdomen: Nondistended. Soft. Nontender. Extremities: No edema. ELECTRONIC EQUIPMENT REPAIRER: Normal mentation. Psych: Appropriate affect. Labs: Lab [...] type, unspecified whether angina present, unspecified whether [place] or transplanted heart Expected: 12/13/2023, Expires: 06/13/2024 documented as of this encounter Visit Diagnoses Diagnosis Coronary artery disease, unspecified vessel or lesion type, unspecified whether angina present, unspecified whether [place] or transplanted heart documented in this encounter Care Teams Ship Officer Relationship Specialty Start Date End Date Aysha Johnson MD [address] [place] [address] PCP - General Family Medicine 12/12/23 documented as of this encounter
--- OUTSIDE RECORDS SUMMARY | 2024-05-18 16:56 | XMS_ITS | Encounter Summary ---
Author Organization [facility] [place] [address] Care Team Providers Care Offbearer Name Role Phone Salome Mcarthur APRN Primary Care Provider [phone] Encounter Details Date Type Department Care Team [...] on filedocumented in this encounter Care Teams Offbearer Relationship Specialty Start Date End Date Salome Mcarthur APRN [address] [place] [address] PCP - General Family Medicine 05/30/15 12/11/23 documented as of this encounter
--- OUTSIDE RECORDS SUMMARY | 2024-05-18 16:56 | XMS_ITS | Encounter Summary ---
Author Organization [facility] [place] [address] Care Team Providers Care Early Years Teacher Name Role Phone Salome Mcarthur APRN Primary Care Provider [phone] Reason for Referral * Consultation (Routine) - Closed Specialty Diagnoses / Procedures Referred By Jose t Referred To Contact Hematology and Oncology Diagnoses Thrombocytopenia Leland Ortega MD [address] [place] [address] [facility] [address] [place] [address] Referral ID Status Reason Start Date Expiration Date V isits Requested Visits Authorized [id number] Closed Consult, Test & Treat 11/21/2023 11/20/2024 1 1 Encounter Details Date Type Department Care Team (Late st Contact Info) Description 11/21/2023 Transcribe Orders [place] [address] Leland Ortega MD [facility] [address] [place], [place] [address] Thrombocytopenia Social History Tobacco Use Types Packs/Day [...] unspecified documented in this encounter Care Teams Early Years Teacher Relationship Specialty Start Date End Date Salome Mcarthur, GEOPHYSICAL ENGINEER [address] [place] [address] PCP - General Family Medicine 05/30/15 12/11/23 documented as of this encounter
--- OUTSIDE RECORDS SUMMARY | 2024-05-18 16:56 | XMS_ITS | Encounter Summary ---
Author Organization [facility] Address [facility] [place] [address] Care Team Providers Care Payroll Accounting Clerk Name Role Phone Salome Mcarthur APRN Primary Care Provider [phone] Reason for Visit * Reason Comments Medication Refill Encounter Details Date Type Department Care Team (Late st Contact Info) Description 10/23/2023 [place] [address] Molly Cui, NEUROLOGY DIRECTOR [facility] [place] [address] Portal hypertension Social History Tobacco Use Types [...] hypertension documented in this encounter Care Teams Payroll Accounting Clerk Relationship Specialty Start Date End Date Salome Mcarthur APRN [address] [place] [address] PCP - General Family Medicine 05/30/15 12/11/23 documented as of this encounter
--- OUTSIDE RECORDS SUMMARY | 2024-05-18 16:56 | XMS_ITS | Encounter Summary ---
Author Organization [facility] Address [facility] [place] [address] Care Team Providers Care Slash Trimmer Name Role Phone Salome Mcarthur APRN Primary Care Provider [phone] Encounter Details Date Type Department Care Team (Late st Contact Info) Description 05/13/2023 Telephone [place] [phone] Lisette Nicholson Social History Tobacco Use Types [...] on filedocumented in this encounter Care Teams Slash Trimmer Relationship Specialty Start Date End Date Salome Mcarthur APRN [address] [place] [address] PCP - General Family Medicine 05/30/15 12/11/23 documented as of this encounter
--- OUTSIDE RECORDS SUMMARY | 2024-05-18 16:56 | XMS_ITS | Encounter Summary ---
Author Organization [facility] Address [facility] [place] [address] Care Team Providers Care Adding Machine Mechanic Name Role Phone Aysha Johnson MD Primary Care Provider [phone] Reason for Visit * Reason Onset Date Comments Medication Refill 12/13/2023 Encounter Details Date Type Department Care Team (Late st Contact Info) Description 12/13/2023 Refill Cardiology at [address] [address] Yonathan Gibson MD [facility] [place] [address] Medication Refill Social History Tobacco Use Types Packs/Day Years Used Date Smoking Tobacco: Never Smokeless Tobacco: Never Alcohol Use Standard Drinks/Week Comments Yes 0 (1 standard drink = 0.6 oz pur e alcohol) once per year [facility] Inpatient Questions Answer Date Recorded [...] type, unspecified whether angina present, unspecified whether [place] or transplanted heart documented in this encounter Care Teams Adding Machine Mechanic Relationship Specialty Start Date End Date Aysha Johnson MD [address] [place] [address] PCP - General Family Medicine 12/12/23 documented as of this encounter
--- OUTSIDE RECORDS SUMMARY | 2024-05-18 16:56 | XMS_ITS | Encounter Summary ---
Author Organization [facility] Address [facility] [place] [address] Care Team Providers Care American Indian Studies Professor Name Role Phone Salome Mcarthur APRN Primary Care Provider [phone] Encounter Details Date Type Department Care Team (Late st Contact Info) Description 11/24/2023 Notes Only Hematology [place] [address] Dariel Ortega MD [facility] [address] [place]EMATOLOGY [place] [address] Social History Tobacco Use Types Packs/Day Years [...] filedocumented in this encounter Care Teams American Indian Studies Professor Relationship Specialty Start Date End Date Salome Mcarthur APRN [address] [place] [address] PCP - General Family Medicine 05/30/15 12/11/23 documented as of this encounter
--- OUTSIDE RECORDS SUMMARY | 2024-05-18 16:56 | XMS_ITS | Encounter Summary ---
Author Organization [facility] Address [place] [address] Care Team Providers Care Clay Washer Name Role Phone Salome Mcarthur APRN Primary Care Provider [phone] Reason for Visit * Reason Comments Leg Swelling Encounter Details Date Type Department Care Team (Late st Contact Info) Description 12/06/2023 11:47 AM EDT - 12/06/2023 5:37 PM EDT Emergency Emergency Department [facility] [place] [address] Nicole Hollingsworth MD [facility] [place] [address] MARTÍNEZ (dyspnea on exertion); Exertional chest pain [...] sent through Care Everywhere. * Chest Pain (Liberian) * SOB (Shortness of Breath) (Liberian) documented in this encounter Medications at Time [...] tablet Take 1 tablet by mouth daily. udzkogkmpi-nqxoica-acq feine (Fiorinal) 50-325-40 mg tablet Take 1 tablet by mouth every 6 hours as needed for Headaches. 04/28/2024 clobetasoL (Temovate) 0.05 % Cream Apply topically 2 times daily. 10/18/2023 04/28/2024 clotrimazole (LOTRIMIN) 1 % Cream Apply topically 2 times daily. 11/03/2023 04/28/2024 nitroGLYcerin (Nitrostat) 0.[address] 0.4 mg under the tongue every 5 minutes as needed for Chest pain. 12/13/2023 SITagliptin phosphate (Januvia) 50 mg tablet Take [...] unit/mL Suspension as needed. 0 05/19/2015 04/28/2024 clonazePAM (KLONOPIN) 0.5 mg Tablet nightly. 02/21/2015 12/20/2023 triamcinolone (KENALOG) 0.1 % cream Apply 1 [...] 02/24/2009 04/28/2024 documented as of this encounter ED Notes * Mami Benton RN - 12/06/2023 5:37 PM EDT Verbalized understanding of discharge instructions. Steady gait when leaving. IV removed * Nicole Hanson DO - 12/06/2023 4:30 PM EDT ED RESIDENT [...] she is being evaluated by cardiology at [facility] and recommended she start Lasix yesterday. [...] questions please contact the health child care counselor that requested your imaging first. Pharmacologic Stress [...] for which she is being evaluated at [facility]. Over last 2 weeks her leg swelling has become acutely worse moving superiorly and now she has increasing abdominal girth and weight gain. She is now sleeping on 3 pillows at night becauseof her orthopnea and dyspneic even with conversation. She spoke with her parking lot laborer over the lastseveral days who recommended Lasix [...] Medicine Resident, PGY-2 12/06/23 4:35 PM Nicole Hanson, Resident 12/06/23 1636 Nicole Hanson, Resident 12/06/23 1637 Nicole Hanson, DO Resident 12/06/23 1648 Associated attestation - Nicole [...] to 3 pillows orthopnea. She has a parking lot laborer who started her on 10 mg of Lasix per day yesterday. She says her parking lot laborer thinks that she needs a cardiac catheterization. [...] primary care physician. Nicole Hollingsworth MD 12/06/23 3792 Nicole Hollingsworth MD 12/06/23 4257 * Jessica Luu MD - 12/06/2023 11:27 AM EDT Telehealth [facility] Note: The following documentation is provided in [...] Lactate, Whole Blood (12/06/2023 5:00 PM EDT) [facility] Lactate, Whole Blood 2.8(H) 0.5 - 2.2 mmol/L 12/06/2023 5:[address] [facility] Blood VENOUS BLOOD SPECIMEN / Unknown IP Care Team Draw / Unknown 12/06/2023 5:00 PM EDT 12/06/2023 5:04 PM EDT Nicole Hollingsworth MD CHEMISTRY ORDERABLE S [facility] [place] [address] * ECHO COMPLETE (12/06/2023 2:33 PM EDT) EF 60 HEARTLAB SYSTEM Anatomical Region Laterality Modality Cardiac Other 12/06/2023 1:50 PM EDT Narrative 12/06/2023 2:38 PM EDT [address] [place] [address] ? Echocardiogram Report Name: NICK MENDIETA ?Study Date: 12/06/2023 01:50 PM ? Patient Location: ED ED15 1 : 1940 ? Height: 155 cm ? Account: [id number] Age: 83 yrs ? Weight: 64 kg Gender: Female ?BSA: 1.6 m2 Ordering Physician: NICOLE HOLLINGSWORTH Performed By: Megan Tamayo RDCS Reason For Study: MARTÍNEZ Exam Location: [facility]. Interpretation Summary Left ventricular size and systolic function are normal. Left ventricular ejection fraction is estimated visually at 60-65%. There are no segmental wall motion abnormalities. Right ventricular systolic function is normal. There is mild aortic stenosis. No prior studies for comparison Procedure Complete-43170. Image enhancement Optison was used for left [...] Note Sony Alicea MD - 12/06/2023 1 [place] [address] Echocardiogram Report Name: NICK MENDIETA Study Date: 1:50 PM Patient Location: [facility] 1 : 1940 Height: 155 cm Account: [id number] Age: 83 yrs Weight: 64 kg Gender: Female BSA: 1.6 m2 Ordering Physician: NICOLE HOLLINGSWORTH Performed By: Megan Tamayo RDCS Reason For Study: MARTÍNEZ Exam Location: [facility]. Interpretation Summary Left ventricular size and systolic function are normal. Left ventricularejection fraction is estimated visually at 60-65%. There are no segmental wallmotion abnormalities. Right ventricular systolic function is normal. There is mild aortic stenosis. No prior studies for comparison Procedure Complete-21225. Image enhancement Optison was used for left [...] (Generic) (12/06/2023 12:49 PM EDT) WORKSTATION ID [id number] RAD Anatomical Region Laterality Modality Chest N/A [...] questions please contact the health child care counselor that requested your imaging first. ? Narrative [...] have questions please contactthe health child care counselor that requested your imaging first. Nicole Hollingsworth MD IMG DX ORDERABLES * (ABNORMAL) Blood Gas, Venous POC (12/06/2023 12:42 PM EDT) pH, Venous 7.38 7.32 - 7.42 12/06/2023 12:[address] [facility] PCO2, Venous 48 38 - 58 mmHg 12/06/2023 12:[address] [facility] PO2, Venous 25 16 - 65 mmHg 12/06/2023 12:[address] [facility] Bicarbonate, Venous 28.0 22 - 31 mmol/L 12/06/2023 12:[address] [facility] Base Excess, Venous 3.0 1.9 - 4.5 mmol/L 12/06/2023 12:[address] [facility] Hemoglobin, Venous 12.2 11.7 - 15.5 g/dL 12/06/2023 12:[address] [facility] Oxyhemoglobin, Venous 46.3 % 12/06/2023 12:[address] [facility] Carboxyhemoglobin, Venous 1.3 % 12/06/2023 12:[address] [facility] Comment: Nonsmokers: 0.5-1.5% COHB ?? Smokers: Variable ??but usually less than 10% ?? Toxic: 20-30% COHB ?? Lethal: Greater than 60% COHB Methemoglobin, Venous 0.1 <=1.5 % 12/06/2023 12:[address] [facility] Sodium, Venous 137 135 - 145 mmol/L 12/06/2023 12:[address] [facility] Potassium, Venous 3.7 3.5 - 5.0 mmol/L 12/06/2023 12:[address] [facility] Chloride, Venous 100 98 - 107 mmol/L 12/06/2023 12:[address] [facility] Glucose, Venous 226(H) 65 - 199 mg/dL 12/06/2023 12:[address] [facility] Comment:Glucose Concentratio n >=200 mg/dL plus symptoms is consistent with Diabetes Mellitus. Lactate, Venous 3.4(H) 0.5 - 2.2 mmol/L 12/06/2023 12:[address] [facility] Ionized Calcium, Venous 1.20 1.15 - 1.33 mmol/L 12/06/2023 12:[address] [facility] Blood VENOUS BLOOD SPECIMEN / Unknown 12/06/2023 12:42 PM EDT 12/06/2023 12:45 PM EDT Nicole Hollingsworth MD POINT OF CARE TEST ORDERABLES [facility] [place] [address] * (ABNORMAL) Hemoglobin A1c (12/06/2023 12:37 PM EDT) Hemoglobin A1c 7.6(H) 4.3 - 5.6 % 12/06/2023 4:[address] [facility] Comment: Per ADA guidelines, without [...] red blood cell turnover may not be service support representative of glycemic control. Reference Interval: 4.3 - 5.6% 5.7 - 6.4%: Consistent with prediabetes >=6.5%: Consistent with diagnosis of diabetes mellitus Estimated Average Glucose 12/06/2023 4:[address] [facility] Comment:Not Calculated. Blood VENOUS BLOOD SPECIMEN / Unknown IP Care Team Draw / Unknown 12/06/2023 12:37 PM EDT 12/06/2023 1:[address] [facility] - 12/06/2023 4:27 PM EDT Estimated average glucose (eAG) is calculated from the equation described in: Tristin CAST, Hermes J, Kathy R, et al. ??Translating the A1C assay into estimated average glucose values. ??Diabetes Care 2008:31(8):5318-1246. Additional resources are available on the ADA website (diabetes.org). Nicole Hollingsworth MD CHEMISTRY ORDERABLE S [facility] [place] [address] * Gold Tube HOLD (12/06/2023 12:37 PM EDT) Gold Hold Hold for Add-on 12/06/2023 3:[address] [facility] Blood VENOUS BLOOD SPECIMEN / Unknown IP Care Team Draw / Unknown 12/06/2023 12:37 PM EDT 12/06/2023 1:02 PM EDT Nicole Hollingsworth MD CHEMISTRY ORDERABLE S [facility] [place] [address] * Blue Tube HOLD (12/06/2023 12:37 PM EDT) Blue Hold Hold for Add-on 12/06/2023 3:[address] [facility] Blood VENOUS BLOOD SPECIMEN / Unknown IP Care Team Draw / Unknown 12/06/2023 12:37 PM EDT 12/06/2023 1:03 PM EDT Nicole Hollingsworth MD HEMATOLOGY ORDERABL ES Performing Organization Address [facility] Co de Phone Number [facility] [place] [address] * Lavender Tube HOLD (12/06/2023 12:37 PM EDT) Lavender Hold Hold for Add-on 12/06/2023 3:[address] [facility] Blood VENOUS BLOOD SPECIMEN / Unknown IP Care Team Draw / Unknown 12/06/2023 12:37 PM EDT 12/06/2023 1:03 PM EDT Nicole Hollingsworth MD HEMATOLOGY ORDERABL ES Performing Organization Address [facility] [place] [place] [address] * EKG 12 Lead (12/06/2023 12:36 PM EDT) Ventricular rate 89 BPM MUSE SYSTEM Atrial Rate 89 BPM MUSE SYSTEM P-R Interval 208 ms MUSE SYSTEM QRS Duration 94 ms MUSE SYSTEM Q-T Interval 368 ms MUSE SYSTEM QTC Calculated (Bezet) 447 ms MUSE SYSTEM Calculated P [place] 61 degrees MUSE SYSTEM Calculated R [place] -26 degrees MUSE SYSTEM Calculated T [place] 14 degrees MUSE SYSTEM INTERPRETATION Normal sinus rhythm Normal ECG No previous ECGs available Confirmed by MD REJI, CAROLYN ([id number]) on 12/06/2023 9:36:35 PM MUSE SYSTEM 12/06/2023 12:3 6 PM EDT 12/06/2023 9:36 PM EDT Jessica Luu MD ECG ORDERABLES Performing Organization Address City/[facility]/ZIP Co de Phone Number MUSE SYSTEM * LDL Cholesterol, Direct (12/06/2023 12:36 PM EDT) LDL Cholesterol, Direct 44 mg/dL 12/06/2023 4:[address] [facility] Comment: Desirable: <100 mg/dL Above [...] EDT Nicole Hollingsworth MD CHEMISTRY ORDERABLE S [facility] [place] [address] * HDL/Cholesterol Profile (12/06/2023 12:36 PM EDT) Cholesterol, Total 103 mg/dL 12/06/2023 4:[address] [facility] Comment: Desirable: < 200 mg/dL Borderline High: 200 - 239 mg/dL High: > or = 240 mg/dL HDL Cholesterol 50 mg/dL 4:[address] [facility] Comment:Female: High Risk: < 50 mg/dL Non-HDL Cholesterol 53 mg/dL 12/06/2023 4:[address] [facility] Comment: Desirable: <130 mg/dL Above Desirable: 130-159 mg/dL Borderline High: 160-189 mg/dL High: 190-219 mg/dL Very High: > or = 220 mg/dL Blood VENOUS BLOOD SPECIMEN / Unknown IP Care Team Draw / Unknown 12/06/2023 12:36 PM EDT 12/06/2023 1:03 PM EDT [facility] - 12/06/2023 4:15 PM EDT It [...] ACC/AHA Guidelines (most recently Emy et al. [facility] 01/09/22): * For individuals with atherosclerotic [...] disease) Nicole Hollingsworth MD CHEMISTRY ORDERABLE S [facility] [place] [address] * Troponin-T, High Sensitivity 1 Hour (12/06/2023 12:36 PM EDT) [facility] Troponin-T, High Sensitivity 10 <=14 ng/L 12/06/2023 1:[address] [facility] Comment: This patient's troponin T [...] can be found in the [facility] Laboratory Test Catalog Troponin - [email or web address]-.testcatalog.org/catalogs/565/files/54569 Reference: Fourth Lefors Definition of Myocardial Infarction. Journal of the [place] College [employer] 2018;72:1664-0774 Troponin-T, HS 1 hr delta 1 ng/L 12/06/2023 1:[address] [facility] Comment:The 1 hour Troponin T delta value is the absolute difference between the Troponin T concentrations of the initial and subsequent sample collected between 45 - 120 minutes following the initial collection. Blood VENOUS BLOOD SPECIMEN / Unknown IP Care Team Draw / Unknown 12/06/2023 12:36 PM EDT 12/06/2023 1:03 PM EDT Jessica Luu MD CHEMISTRY ORDERABLES [facility] [place] [address] * (ABNORMAL) Magnesium (12/06/2023 11:43 AM EDT) Pathologist [facility] Magnesium 0.49(L) 0.69 - 1.07 mMol/L 12/06/2023 1:[address] [facility] Blood VENOUS BLOOD SPECIMEN / Unknown IP Care Team Draw / Unknown 12/06/2023 11:43 AM EDT 12/06/2023 12:02 PM EDT Nicole Hollingsworth MD CHEMISTRY ORDERABLE S Performing Organization Address City/[facility]/ZIP Co de Phone Number [facility] [place] [address] * pro-Brain Natriuretic Peptide (12/06/2023 11:43 AM EDT) [facility] NT-proBNP 266 <=449 pg/mL 12/06/2023 1:[address] [facility] Blood VENOUS BLOOD SPECIMEN / Unknown IP Care Team Draw / Unknown 12/06/2023 11:43 AM EDT 12/06/2023 12:02 PM EDT Nicole Hollingsworth MD CHEMISTRY ORDERABLE S [facility] [place] [address] * Gold Tube HOLD (12/06/2023 11:43 AM EDT) Pathologist [facility] Gold Hold Hold for Add-on 12/06/2023 2:[address] [facility] Blood VENOUS BLOOD SPECIMEN / Unknown 12/06/2023 11:43 AM EDT 12/06/2023 12:03 PM EDT Jessica Luu MD CHEMISTRY ORDERABLES Performing Organization Address City/[facility]/ZIP Co de Phone Number [facility] [place] [address] * Blue Tube HOLD (12/06/2023 11:43 AM EDT) Blue Hold Hold for Add-on 12/06/2023 2:[address] [facility] Blood VENOUS BLOOD SPECIMEN / Unknown 12/06/2023 11:43 AM EDT 12/06/2023 12:03 PM EDT Jessica Luu MD HEMATOLOGY ORDERABLE S Performing Organization Address City/[facility]/ZIP Co de Phone Number [facility] [place] [address] * Troponin-T, High Sensitivity (12/06/2023 11:43 AM EDT) Troponin-T, High Sensitivity Initial 9 <=14 ng/L 12/06/2023 12:[address] [facility] Comment: This patient's troponin T [...] can be found in the [facility] Laboratory Test Catalog Troponin - https://one-.testcatalog.org/catalogs/565/files/68449 Reference: Fourth [place]efors Definition of Myocardial Infarction. Journal of the [place] College of Cardiology 2018;72:9124-4034 Blood VENOUS BLOOD SPECIMEN / Unknown IP Care Team Draw / Unknown 12/06/2023 11:43 AM EDT 12/06/2023 12:02 PM EDT Jessica Luu MD CHEMISTRY ORDERABLES [facility] [place] [address] * (ABNORMAL) Basic Metabolic Panel (12/06/2023 11:43 AM EDT) Glucose 248(H) 65 - 199 mg/dL 12/06/2023 12:[address] [facility] Comment:Glucose Concentratio n >=200 mg/dL plus symptoms is consistent with Diabetes Mellitus. Blood Urea Nitrogen 18 8 - 18 mg/dL 12/06/2023 12:[address] [facility] Creatinine 0.58(L) 0.70 - 1.20 mg/dL 12/06/2023 12:[facility] Sodium 137 135 - 145 mMol/L 12/06/2023 12:39 [facility] Potassium 4.1 3.5 - 5.0 mMol/L 12/06/2023 12:39 PM [facility] Chloride 100 98 - 107 mMol/L 12/06/2023 12:39 PM [facility] Carbon Dioxide 24 22 - 31 mMol/L 12/06/2023 12:39 PM [facility] Anion Gap 13 5 - 15 mMol/L 12/06/2023 12:39 PM [facility] Calcium 9.7 8.5 - 10.5 mg/dL 12/06/2023 12:[address] [facility] Est Glomerular Filtration Rate - Female 90 mL/min/1. 73 m?? 12/06/2023 12:[address] [facility] Comment: This patient's estimated GFR [...] PM EDT Jessica Luu MD CHEMISTRY ORDERABLES [facility] [place] [address] * (ABNORMAL) CBC (with Diff) (12/06/2023 11:43 AM EDT) White Blood Cell 4.98 4.00 - 9.50 x10(3)/mc L 12/06/2023 12:[address] [facility] Red Blood Cell 3.98(L) 4.00 - 5.21 x10(6)/mc L 12/06/2023 12:[address] [facility] Hemoglobin 12.0 11.7 - 15.5 g/dL 12/06/2023 12:[address] [facility] Hematocrit 37.2 35.7 - 45.8 % 12/06/2023 12:[address] [facility] Mean Cell Volume 93.5 82.6 - 94.4 fL 12/06/2023 12:15 PM [facility] Mean Cell Hemoglobin 30.2 27.1 - 32.0 pg 12/06/2023 12:15 PM [facility] Mean Cell Hemoglobin Concentration 32.3 31.7 - 35.0 g/dL 12/06/2023 12:15 PM [facility] Platelet 78(L) 145 - 357 x10(3)/mc L 12/06/2023 12:15 PM [facility] Mean Platelet Volume 12.8 7.6 - 12.9 fL 12/06/2023 12:15 PM [facility] RDW Standard Deviation 46.0 37.0 - 46.0 fL 12/06/2023 12:15 PM [facility] RDW coefficient of variation 13.5 11.5 - 14.1 % 12/06/2023 12:15 PM [facility] NRBC% auto 0.0 % 12/06/2023 12:15 PM [facility] NRBC Absolute 0.00 0.00 - 0.00 x10(3)/mc L 12/06/2023 12:15 PM [facility] Neutrophil % 63.0 % 12/06/2023 12:15 PM [facility] Neutrophil Absolute (ANC) - Automated 3.14 1.70 - 6.10 x10(3)/mc L 12/06/2023 12:15 PM [facility] Lymph % 22.9 % 12/06/2023 12:15 PM [facility] Lymph Absolute 1.14 0.90 - 3.20 x10(3)/mc L 12/06/2023 12:15 PM [facility] Monocyte % 12.7 % 12/06/2023 12:15 PM [facility] Monocyte Absolute 0.63 0.30 - 0.90 x10(3)/mc L 12/06/2023 12:15 PM [facility] Eos % 1.0 % 12/06/2023 12:[address] [facility] Eos Absolute 0.05 0.00 - 0.40 x10(3)/mc L 12/06/2023 12:[address] [facility] Basophil % 0.2 % 12/06/2023 12:[address] [facility] Baso Absolute 0.01 0.00 - 0.10 x10(3)/mc L 12/06/2023 12:[address] [facility] Immature Gran % 0.2 % 12:[address] [facility] Immature Gran Absolute 0.01 0.00 - 0.04 x10(3)/mc L 12/06/2023 12:[address] [facility] Blood VENOUS BLOOD SPECIMEN / Unknown IP Care Team Draw / Unknown 12/06/2023 11:43 AM EDT 12/06/2023 12:02 PM EDT Jessica Luu MD HEMATOLOGY ORDERABLE S [facility] [place] [address] documented in this encounter Visit Diagnoses Diagnosis [...] RN) documented in this encounter Care Teams Clay Washer Relationship Specialty Start Date End Date Salome Mcarthur, DIABETES PHYSICIAN [address] [place] [address] PCP - General Family Medicine 05/30/15 12/11/23 documented as of this encounter
--- OUTSIDE RECORDS SUMMARY | 2024-05-18 16:56 | XMS_ITS | Encounter Summary ---
Author Organization [facility] [place] [address] Care Team Providers Care Nurse Anesthetist Name Role Phone Salome Mcarthur APRN Primary Care Provider [phone] Reason for Referral * Consultation (Routine) - Closed Specialty Diagnoses / Procedures Referred By Contac t Referred To Contact Cardiology Diagnoses JIMENEZ (dyspnea on exertion) Chest pain, unspecified type Aortic valve stenosis, etiology of cardiac valve disease unspecified Procedures CARDIAC CATHETERIZATION Leland Ortega MD [address] [place] [address] [facility] [address] [place] [phone] Referral ID Status Reason Start Date Expiration Date V isits Requested Visits Authorized [id number] Closed Consult, Test & Treat 11/27/2023 11/26/2024 1 1 Encounter Details Date Type Department Care Team (Latest Contact Info) Description 11/27/2023 Transcribe Orders eDH Incoming Referrals [phone] Leland Ortega MD [address] [place] [address] [place], [place] [id number] JIMENEZ (dyspnea on exertion); Chest pain, unspecified [...] unspecified documented in this encounter Care Teams Nurse Anesthetist Relationship Specialty Start Date End Date Salome Mcarthur, JAVA [employer]EE LEAD [address] [place] [address] PCP - General Family Medicine 05/30/15 12/11/23 documented as of this encounter
--- OUTSIDE RECORDS SUMMARY | 2024-05-18 16:56 | XMS_ITS | Encounter Summary ---
Author Organization Formerly [facility] Address [facility] [place] [address] Care Team Providers Care Pearl Glue Operator Name Role Phone Salome Mcarthur APRN Primary Care Provider [phone] Encounter Details Date Type Department Care Team (Latest Contact Info) Description 08/08/2023 11:20 AM EDT - 08/08/2023 11:59 PM EDT Hospital [place] [phone] Molly Wallis ACADEMIC ADVISOR [facility] [address] Hepatic cirrhosis, unspecified hepatic cirrhosis type, unspecified [...] directed. 05/02/2020 fluticasone propionate (FLONASE) 50 mcg/actuation [place], Suspension [...] tablet Take 1 tablet by mouth daily. metoprolol succinate XL (Toprol-XL) 25 mg ER 24 hr tablet Take 37.5 mg by mouth Daily @ 0600. 04/28/2024 carvediloL (Coreg) 6.25 mg tablet Take 1 [...] (TRICOR) 145 mg Tablet Reported on 08/21/2016 02/17/201504/28 nystatin (MYCOSTATIN) 100,000 unit/mL Suspension as needed. 0 05/19/2015 04/28/2024 clonazePAM (KLONOPIN) 0.5 mg Tablet nightly. 02/21/2015 12/20/2023 triamcinolone (KENALOG) 0.1 % cream Apply 1 Application topically as needed. 04/28/2024 lisinopril-hydrochlor othiazide (PRINZIDE;ZESTORETIC) 10-12.5 mg per tablet Take 1 tablet by mouth daily. 04/28/2024 acetaminophen (TYLENOL) 325 mg tablet Take 650 mg by mouth every 4 hours as needed. 04/28/2024 FEXOFENADINE HCL (JESÚS ORAL) Take 100 mg by mouth as needed. Reported on 08/21/2016 04/28/2024 amitriptyline (ELAVIL) 50 mg tablet Take 25 mg by mouth nightly. 12/06/2023 docusate sodium (COLACE) 100 mg capsule Take [...] Protocol (08/08/2023 11:45 AM EDT) WORKSTATION ID [id number] RAD Anatomical Region Laterality Modality Abdomen Ultrasound [...] PM Electronically signed by: Alisha Grove MD, [facility] ([phone]), at 08/08/2023 1:24 PM Thank you for letting us participate in the care of this patient. If you are a health care provider and have any questions regarding this report, please contact the number above. For patients who have questions, please contact the health critical care nurse practitioner that requested your imaging first. ?Alisha Grove, Staff Physician Electronically Signed Final Report ?? 08/08/2023 01:31 pm Narrative 08/08/2023 1:32 PM EDT Abdominal ? (Signed Final 08/08/2023 01:31 pm) PATIENT INFO: ID #: ? [id number] ?: ??[birth year] (83 yrs)(F) Name: ? MILKA MENDIETA ?Visit Date: 08/08/2023 11:27 am PERFORMED BY: Attending: ?Perfecto GALLO, Alisha Carpio Resident: ? Stevie [facility]ALLO, [facility] Performed By: ? Ayaka Biswas RDMS Referred By: ?MOLLY WALLIS Location: ? Cable [facility] Protocol - Abdominal ?[id number] Limited Survey Single Organ or Quadrant - [id number] INDICATIONS: cirrhosis, screen for hcc, splenomegaly ------ [...] 08/08/2023 01:31 pm) PATIENT INFO: ID #: [id number] : 42 (83 yrs)(F) Name: MILKA MENDIETA Visit Date: 08/08/2023 11:27 am PERFORMED BY: Attending: Alisha Grove MD Resident: Stevie GALLO antonio Performed By: Ayaka Biswas RDMS Referred By: MOLLY WALLIS Location: Cable SERVICE(S) PROVIDED: [facility] - Hepatology Protocol - Abdominal [id number] Limited Survey Single Organ or Quadrant - [id number] INDICATIONS: cirrhosis, screen for hcc, splenomegaly ------ [...] PM Electronically signed by: Alisha Grove MD, [facility] ([phone]), at 08/08/2023 1:24 PM Thank you for letting us participate in the care of this patient. If you are a health care provider and have any questions regarding this report, please contact the number above. For patients who have questions, please contact the health critical care nurse practitioner that requested your imaging first. Alisha Grove, Staff Physician Electronically Signed Final Report 08/08/2023 01:31 pm Molly Wallis APRN [facility] GEN ORDERAB LES documented in this encounter Visit Diagnoses Diagnosis Hepatic cirrhosis, unspecified hepatic cirrhosis type, unspecified whether ascites present documented in this encounter Care Teams Pearl Glue Operator Relationship Specialty Start Date End Date Salome Mcarthur APRN [address] [place] [address] PCP - General Family Medicine 05/30/15 12/11/23 documented as of this encounter
--- OUTSIDE RECORDS SUMMARY | 2024-05-18 16:56 | XMS_ITS | Encounter Summary ---
Author Organization Formerly [facility] Address [facility] [place] [address] Care Team Providers Care Rn Palliative Name Role Phone Aysha Johnson MD Primary Care Provider [phone] Encounter Details Date Type Department Care Team (Late st Contact Info) Description 12/11/2023 Telephone [place] [phone] Jacque Gale RN Social History Tobacco Use Types Packs/Day Years Used Date Smoking Tobacco: Never Smokeless Tobacco: Never Alcohol Use Standard Drinks/Week Comments Yes 0 (1 standard drink = 0.6 oz pur e alcohol) once per year [facility] Inpatient Questions Answer Date Recorded [...] filedocumented in this encounter Care Teams Rn Palliative Relationship Specialty Start Date End Date Aysha Johnson MD [address] [place] [address] PCP - General Family Medicine 12/12/23 documented as of this encounter
--- OUTSIDE RECORDS SUMMARY | 2024-05-18 16:56 | XMS_ITS | Encounter Summary ---
Author Organization [facility] Address [facility] [address] Care Team Providers Care Planer Offbearer Name Role Phone Aysha Johnson MD Primary Care Provider [phone] Encounter Details Date Type Department Care Team (Latest Contact Info) Description 12/20/2023 12:15 PM EDT - 12/20/2023 11:59 PM EDT Hospital Encounter Hematology [place] [phone] Thrombocytopenia Discharge Disposition: Home Social History Tobacco Use Types Packs/Day Years Used Date Smoking Tobacco: Never Smokeless Tobacco: Never Alcohol Use Standard Drinks/Week Comments Yes 0 (1 standard drink = 0.6 oz pur e alcohol) once per year [facility] Inpatient Questions Answer Date Recorded Does [...] type, unspecified whether angina present, unspecified whether [place] or transplanted heart Place 1 tablet under [...] directed. 05/02/2020 fluticasone propionate (FLONASE) 50 mcg/actuation [place], Suspension 1 spray daily. pramipexole (MIRAPEX) 0.125 [...] type, unspecified whether angina present, unspecified whether [place] or transplanted heart Take 1 tablet by mouth 2 times daily. 60 tablet 12/13/2023 04/28/2024 rmcwpykloi-ivpokhs-wpg feine (Fiorinal) 50-325-40 mg tablet Take 1 [...] PM EDT Thrombocytopenia HIV SCREEN, 4TH GENERATION ([facility]/CGP/APD/NL)PERF ORMABLE STAT 12/20/2023 12:29 PM EDT Thrombocytopenia HEPATITIS [...] encounter Results * HIV Screen, 4th Generation ([facility]/CGP/APD/NLH) (12/20/2023 12:29 PM EDT) HIV Ab/Ag Screen Negative Negative 12/20/2023 1:38 PM EDT [facility] Comment:Low Risk of HIV Infe ction. Blood VENOUS BLOOD SPECIMEN / Unknown Venipuncture / Unknown 12/20/2023 12:29 PM EDT 12/20/2023 12:29 PM EDT [facility] - 12/20/2023 1:38 PM EDT This [...] performed. Evin Little MD CHEMISTRY ORDERABLE S [facility] [place] [address] * Hepatitis C Antibody (12/20/2023 12:29 PM EDT) Pathologist [facility] Hepatitis C Antibody Negative Negative 12/20/2023 1:38 PM EDT [facility] Blood VENOUS BLOOD SPECIMEN / Unknown Venipuncture / Unknown 12/20/2023 12:29 PM EDT 12/20/2023 12:29 PM EDT Evin Little MD CHEMISTRY ORDERABLE S Performing Organization Address City/[facility]/ZIP Co de Phone Number [facility] [place] [address] * Hepatitis B Surface Antigen (12/20/2023 12:29 PM EDT) Pathologist [facility] Hepatitis B Surface Antigen Negative Negative 12/20/2023 1:38 PM EDT [facility] Blood VENOUS BLOOD SPECIMEN / Unknown Venipuncture / Unknown 12/20/2023 12:29 PM EDT 12/20/2023 12:29 PM EDT Evin Little MD CHEMISTRY ORDERABLE S Performing Organization Address City/[facility]/ZIP Co de Phone Number [facility] [place] [address] * (ABNORMAL) Loco-Llanos Virus Antibodies (12/20/2023 12:29 PM EDT) Pathologist [facility] EBNA Antibodies Positive(A) Negative 12/24/2023 11:49 AM EDT [facility] EBV (VCA) IgG Ab Positive(A) Negative 12/24/2023 11:49 AM EDT [facility] EBV (VCA) IgM Ab Negative Negative 12/24/2023 11:49 AM EDT [facility] EBV Interp Past EBV infection. 12/24/2023 11:49 AM EDT [facility] Blood VENOUS BLOOD SPECIMEN / Unknown Venipuncture / Unknown 12/20/2023 12:29 PM EDT 12/20/2023 12:29 PM EDT Narrative [facility] - 12/24/2023 11:49 AM [...] MD IMMUNOLOGY ORDERABL ES Performing Organization Address [facility]/ZIP Co de Phone Number [facility] [place] [address] * CMV Antibody, IgM (12/20/2023 12:29 PM EDT) CMV IgM Negative Negative 12/24/2023 11:57 AM EDT [facility] Blood VENOUS BLOOD SPECIMEN / Unknown Venipuncture / Unknown 12/20/2023 12:29 PM EDT 12/20/2023 12:29 PM EDT Evin Little MD IMMUNOLOGY ORDERABL ES Performing Organization Address City/[facility]/ZIP Co de Phone Number [facility] [place] [address] * CMV Antibody, IgG (12/20/2023 12:29 PM EDT) CMV IgG Negative Negative 12/24/2023 11:48 AM EDT [facility] Blood VENOUS BLOOD SPECIMEN / Unknown Venipuncture / Unknown 12/20/2023 12:29 PM EDT 12/20/2023 12:29 PM EDT Evin Little MD IMMUNOLOGY ORDERABL ES [facility] [place] [address] * Hepatitis B Core Antibody, Total (12/20/2023 12:29 PM EDT) Hepatitis B Core Antibody Negative Negative 12/20/2023 1:38 PM EDT [facility] Blood VENOUS BLOOD SPECIMEN / Unknown Venipuncture / Unknown 12/20/2023 12:29 PM EDT 12/20/2023 12:29 PM EDT Evin Little MD CHEMISTRY ORDERABLE S Performing Organization Address [facility] Co de Phone Number [facility] [place] [address] * Hepatitis B Surface Antibody (12/20/2023 12:29 PM EDT) Pathologist [facility] Hepatitis B Surface Antibody, Quantitative <3.5 IU/L 12/20/2023 6:11 PM EDT [facility] Comment: Unvaccinated: < 8.5 IU/L Vaccinated: >= 11.5 IU/L Hepatitis B Surface Antibody Negative 12/20/2023 6:11 PM EDT [facility] Comment: Patient is presumed to be not vaccinated or immune to HBV infection. Expected Results: Vaccinated: Positive Unvaccinated: Negative Blood VENOUS BLOOD SPECIMEN / Unknown Venipuncture / Unknown 12/20/2023 12:29 PM EDT 12/20/2023 12:29 PM EDT Evin Little MD CHEMISTRY ORDERABLE S Performing Organization Address City/[facility]/ZIP Co de Phone Number [facility] [place] [address] * Lactate Dehydrogenase (12/20/2023 12:29 PM EDT) Lactate Dehydrogenase 131 110 - 220 unit/L 12/20/2023 1:08 PM EDT [facility] Blood VENOUS BLOOD SPECIMEN / Unknown Venipuncture / Unknown 12/20/2023 12:29 PM EDT 12/20/2023 12:29 PM EDT Evin Little MD CHEMISTRY ORDERABLE S [facility] [place] [address] * (ABNORMAL) Comprehensive metabolic panel (12/20/2023 12:29 PM EDT) Glucose 116 65 - 199 mg/dL 12/20/2023 1:08 PM EDT [facility] Comment:Glucose Concentratio n >=200 mg/dL plus symptoms is consistent with Diabetes Mellitus. Blood Urea Nitrogen 23(H) 8 - 18 mg/dL 12/20/2023 1:08 PM EDT [facility] Creatinine 0.88 0.70 - 1.20 mg/dL 12/20/2023 1:08 PM EDT [facility] Sodium 139 135 - 145 mMol/L 12/20/2023 1:08 PM EDT [facility] Potassium 3.9 3.5 - 5.0 mMol/L 12/20/2023 1:08 PM EDT [facility] Chloride 101 98 - 107 mMol/L 12/20/2023 1:08 PM EDT [facility] Carbon Dioxide 27 22 - 31 mMol/L 12/20/2023 1:08 PM EDT [facility] Anion Gap 11 5 - 15 mMol/L 12/20/2023 1:08 PM EDT [facility] Calcium 9.7 8.5 - 10.5 mg/dL 12/20/2023 1:08 PM EDT [facility] Protein, Total 7.0 6.1 - 8.0 g/dL 12/20/2023 1:08 PM EDT [facility] Albumin 4.3 3.2 - 5.2 g/dL 12/20/2023 1:08 PM EDT [facility] Aspartate Aminotransferase 25 <=30 unit/L 12/20/2023 1:08 PM EDT [facility] Alanine Aminotransferase 23 0 - 30 unit/L 12/20/2023 1:08 PM EDT [facility] Alkaline Phosphatase 96 35 - 105 unit/L 12/20/2023 1:08 PM EDT [facility] Bilirubin, Total 0.7 <=1.3 mg/dL 12/20/2023 1:08 PM EDT [facility] Est Glomerular Filtration Rate - Female 66 mL/min/1. 73 m?? 12/20/2023 1:08 PM EDT [facility] Comment: This patient's estimated [...] Fasting Status No 12/20/2023 1:08 PM EDT [facility] Blood VENOUS BLOOD SPECIMEN / Unknown Venipuncture / Unknown 12/20/2023 12:29 PM EDT 12/20/2023 12:29 PM EDT Evin Little MD CHEMISTRY ORDERABLE S [facility] [place] [address] * (ABNORMAL) CBC (with Diff) (12/20/2023 12:29 PM EDT) White Blood Cell 6.24 4.00 - 9.50 x10(3)/mcL 12/20/2023 12:51 PM EDT [facility] Red Blood Cell 4.24 4.00 - 5.21 x10(6)/mcL 12/20/2023 12:51 PM [facility] Hemoglobin 12.7 11.7 - 15.5 g/dL 12/20/2023 12:51 PM [facility] Hematocrit 38.9 35.7 - 45.8 % 12/20/2023 12:51 PM [facility] Mean Cell Volume 91.7 82.6 - 94.4 fL 12/20/2023 12:51 PM [facility] Mean Cell Hemoglobin 30.0 27.1 - 32.0 pg 12/20/2023 12:51 PM [facility] Mean Cell Hemoglobin Concentration 32.6 31.7 - 35.0 g/dL 12/20/2023 12:51 PM [facility] Platelet 86(L) 145 - 357 x10(3)/mcL 12/20/2023 12:51 PM [facility] Mean Platelet Volume 11.7 7.6 - 12.9 fL 12/20/2023 12:51 PM [facility] RDW Standard Deviation 45.6 37.0 - 46.0 fL 12/20/2023 12:51 PM [facility] RDW coefficient of variation 13.5 11.5 - 14.1 % 12/20/2023 12:51 PM [facility] NRBC% auto 0.0 % 12/20/2023 12:51 PM [facility] NRBC Absolute 0.00 0.00 - 0.00 x10(3)/mcL 12/20/2023 12:51 PM [facility] Neutrophil % 64.6 % 12/20/2023 12:51 PM [facility] Neutrophil Absolute (ANC) - Automated 4.03 1.70 - 6.10 x10(3)/mcL 12/20/2023 12:51 PM [facility] Lymph % 22.4 % 12/20/2023 12:51 PM [facility] Lymph Absolute 1.40 0.90 - 3.20 x10(3)/mcL 12/20/2023 12:51 PM EDT [facility] Monocyte % 11.9 % 12/20/2023 12:51 PM EDT [facility] Monocyte Absolute 0.74 0.30 - 0.90 x10(3)/[facility] 12/20/2023 12:51 PM EDT [facility] Eos % 0.6 % 12/20/2023 12:51 PM EDT [facility] Eos Absolute 0.04 0.00 - 0.40 x10(3)/[facility] 12/20/2023 12:51 PM EDT [facility] Basophil % 0.2 % 12/20/2023 12:51 PM EDT [facility] Baso Absolute 0.01 0.00 - 0.10 x10(3)/[facility] 12/20/2023 12:51 PM EDT [facility] Immature Gran % 0.3 % 12:51 PM EDT [facility] Immature Gran Absolute 0.02 0.00 - 0.04 x10(3)/[facility] 12/20/2023 12:51 PM EDT [facility] Blood VENOUS BLOOD SPECIMEN / Unknown Venipuncture / Unknown 12/20/2023 12:29 PM EDT 12/20/2023 12:29 PM EDT Evin Little MD HEMATOLOGY ORDERABL ES [facility] [place] [address] documented in this encounter Visit Diagnoses Diagnosis Thrombocytopenia Thrombocytopenia, unspecified documented in this encounter Care Teams Planer Offbearer Relationship Specialty Start Date End Date Aysha Johnson MD [address] [place] [address] PCP - General Family Medicine 12/12/23 documented as of this encounter
--- OUTSIDE RECORDS SUMMARY | 2024-05-18 16:56 | XMS_ITS | Encounter Summary ---
Author Organization [facility] Address [facility] [place] [address] Care Team Providers Care Court Orderly Name Role Phone Aysha Johnson MD Primary Care Provider [phone] Reason for Visit * Reason Comments Advice Only * Consultation (Routine) - Closed Specialty Diagnoses / Procedures Referred By Contruth t Referred To Contact Hematology and Oncology Diagnoses Thrombocytopenia Leland Ortega MD [address] [place] [id number] [facility] [address] [place] [address] Referral ID Status Reason Start Date Expiration Date V isits Requested Visits Authorized [id number] Closed Consult, Test & Treat 12/03/2023 12/02/2024 1 1 Encounter Details Date Type Department Care Team (Late st Contact Info) Description 12/20/2023 1:00 PM EDT Office Visit Hematology [place] [address] Evin Little MD [facility] [place] [address] Thrombocytopenia Social History Tobacco Use Types Packs/Day Years Used Date Smoking Tobacco: Never Smokeless Tobacco: Never Alcohol Use Standard Drinks/Week Comments Yes 0 (1 standard drink = 0.6 oz pur e alcohol) once per year [facility] Inpatient Questions Answer Date Recorded Does [...] MULTIPLE performed by Leticia Ashraf MD at [facility] ENDOSCOPY PRO UPPER GI ENDOSCOPY, DIAGNOSTIC Bilateral 07/14/2015 EGD, UPPER GI ENDOSCOPY performed by Leticia Ashraf MD at [facility] ENDOSCOPY PRO UPPER GI ENDOSCOPY, DIAGNOSTIC N/A 09/17/2018 EGD, UPPER GI ENDOSCOPY performed by Juliette Chauhan MD at [facility] ENDOSCOPY PRO UPPER GI ENDOSCOPY, DIAGNOSTIC N/A 09/23/2019 EGD, UPPER GI ENDOSCOPY performed by Juliette Chauhan MD at [facility] ENDOSCOPY PRO UPPER GI ENDOSCOPY, DIAGNOSTIC N/A 09/26/2020 EGD, UPPER GI ENDOSCOPY performed by Braulio Bailey MD at [facility] ENDOSCOPY PRO UPPER GI ENDOSCOPY, DIAGNOSTIC N/A 01/31/2022 EGD, UPPER GI ENDOSCOPY performed by Leland Ramos MD at [facility] ENDOSCOPY PRO UPPER GI ENDOSCOPY, DIAGNOSTIC N/A 01/23/2023 EGD, UPPER GI ENDOSCOPY (WRVU 2.09) performed by Juliette Chauhan MD at [facility] ENDOSCOPY RECTOCELE REPAIR 08/2011 at [facility] AND [facility] for endometriosis TUBAL LIGATION Medications I reviewed [...] DAILY atorvastatin (LIPITOR) 20 mg, Oral, DAILY mdwqbceddh-ikffnsa-sppohgpr (Fiorinal) 50-325-40 mg tablet 1 tablet, Oral, [...] mg, DAILY fluticasone propionate (FLONASE) 50 mcg/actuation [place], Suspension 1 spray, DAILY gabapentin (NEURONTIN) 600 [...] Concern None Social History Narrative Lives in [place], [place] with her of 10 years. 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 Social Determinants of Health Financial Resource Strain: [...] above threshold for treatment; it would not guide changer recommendations for observation. Bone marrow aspiration [...] that I can appreciate as having a [id number]-[id number] incidence of thrombocytopenia would be aspirin, for [...] PRN Evin Little MD Section of Hematology Pouch Making Machine Operatorreading recovery teacher [facility] Greater than 45 minutes were spent on date of visit, including non-face to face time. Patient consents to use of [facility] portal for communication of results. This note was completed using [employer] Dictation technology. Please reach out if there are significant errors in dental instrument maker that require clarification on my part. CC: MD Jordan Milner Michael G documented in this encounter Plan of Treatment Not on file documented as of this encounter Results * HIV Screen, 4th Generation ([facility]/APD/[facility]H) (12/20/2023 12:29 PM EDT) HIV Ab/Ag Screen [...] CHEMISTRY ORDERABLE S [facility] [place] [address] * Hepatitis C Antibody (12/20/2023 12:29 PM EDT) Hepatitis C Antibody Negative Negative 12/20/2023 1:38 PM EDT [facility] Blood VENOUS BLOOD SPECIMEN / Unknown Venipuncture / Unknown 12/20/2023 12:29 PM EDT 12/20/2023 12:29 PM EDT Evin Little MD CHEMISTRY ORDERABLE S [facility] [place] [address] * Hepatitis B Surface Antigen (12/20/2023 12:29 PM EDT) Pathologist [facility] Hepatitis B Surface Antigen Negative Negative 12/20/2023 1:38 PM EDT [facility] Blood VENOUS BLOOD SPECIMEN / Unknown Venipuncture / Unknown 12/20/2023 12:29 PM EDT 12/20/2023 12:29 PM EDT Evin Little MD CHEMISTRY ORDERABLE S Performing Organization Address City/[facility]/ZIP Co de Phone Number [facility] [place] [address] * (ABNORMAL) Kamilla-Llanos Virus Antibodies (12/20/2023 12:29 [...] EDT Narrative [facility] - 12/24/2023 11:49 AM EDT [...] MD IMMUNOLOGY ORDERABL ES Performing Organization Address City/[facility]/ZIP Co de Phone Number [facility] [place] [address] * CMV Antibody, IgM (12/20/2023 12:29 PM EDT) CMV IgM Negative Negative 12/24/2023 11:57 AM EDT [facility] Blood VENOUS BLOOD SPECIMEN / Unknown Venipuncture / Unknown 12/20/2023 12:29 PM EDT 12/20/2023 12:29 PM EDT Evin Little MD IMMUNOLOGY ORDERABL ES Performing Organization Address [facility] [place] [place] [address] * CMV Antibody, IgG (12/20/2023 12:29 PM EDT) CMV IgG Negative Negative 12/24/2023 11:48 AM EDT [facility] Blood VENOUS BLOOD SPECIMEN / Unknown Venipuncture / Unknown 12/20/2023 12:29 PM EDT 12/20/2023 12:29 PM EDT Evin Little MD IMMUNOLOGY ORDERABL ES Performing Organization Address City/[facility] Co de Phone Number [facility] [place] [address] * Hepatitis B Core Antibody, Total (12/20/2023 12:29 PM EDT) Hepatitis B Core Antibody Negative Negative 12/20/2023 1:38 PM EDT [facility] Blood VENOUS BLOOD SPECIMEN / Unknown Venipuncture / Unknown 12/20/2023 12:29 PM EDT 12/20/2023 12:29 PM EDT Evin Little MD CHEMISTRY ORDERABLE S [facility] [place] [address] * Hepatitis B Surface Antibody (12/20/2023 12:29 PM EDT) [facility] Hepatitis B Surface Antibody, Quantitative <3.5 IU/L [...] MD CHEMISTRY ORDERABLE S Performing Organization Address City/[facility]/ZIP Co de Phone Number [facility] [place] [address] * Lactate Dehydrogenase (12/20/2023 12:29 PM EDT) [facility] Lactate Dehydrogenase 131 110 - 220 unit/L 12/20/2023 1:08 PM EDT [facility] Blood VENOUS BLOOD SPECIMEN / Unknown Venipuncture / Unknown 12/20/2023 12:29 PM EDT 12/20/2023 12:29 PM EDT Evin Little MD CHEMISTRY ORDERABLE S [facility] [place] [address] * (ABNORMAL) Comprehensive metabolic panel (12/20/2023 12:29 PM EDT) [facility] Glucose 116 65 - 199 mg/dL 12/20/2023 1:08 PM EDT [facility] Comment:Glucose Concentratio n >=200 mg/dL plus symptoms is consistent with Diabetes Mellitus. Blood Urea Nitrogen 23(H) 8 - 18 mg/dL 12/20/2023 1:08 PM [facility] Creatinine 0.88 0.70 - 1.20 mg/dL 12/20/2023 1:08 PM [facility] Sodium 139 135 - 145 mMol/L 12/20/2023 1:08 PM [facility] Potassium 3.9 3.5 - 5.0 mMol/L 12/20/2023 1:08 PM [facility] Chloride 101 98 - 107 mMol/L 12/20/2023 1:08 PM [facility] Carbon Dioxide 27 22 - 31 mMol/L 12/20/2023 1:08 PM [facility] Anion Gap 11 5 - 15 mMol/L 12/20/2023 1:08 PM [facility] Calcium 9.7 8.5 - 10.5 mg/dL 12/20/2023 1:08 PM [facility] Protein, Total 7.0 6.1 - 8.0 g/dL 12/20/2023 1:08 PM [facility] Albumin 4.3 3.2 - 5.2 g/dL 12/20/2023 1:08 PM [facility] Aspartate Aminotransferase 25 <=30 unit/L 12/20/2023 1:08 PM [facility] Alanine Aminotransferase 23 0 - 30 unit/L 12/20/2023 1:08 PM [facility] Alkaline Phosphatase 96 35 - 105 unit/L 12/20/2023 1:08 PM [facility] Bilirubin, Total 0.7 <=1.3 mg/dL 12/20/2023 1:08 PM [facility] Est Glomerular Filtration Rate - Female 66 mL/min/1. 73 m?? 12/20/2023 1:08 PM [facility] Comment: This patient's estimated GFR [...] CHEMISTRY ORDERABLE S [facility] [place] [address] * (ABNORMAL) CBC (with Diff) (12/20/2023 12:29 PM EDT) White Blood Cell 6.24 4.00 - 9.50 x10(3)/mcL 12/20/2023 12:51 PM EDT [facility] Red Blood Cell 4.24 4.00 - 5.21 x10(6)/mcL 12/20/2023 12:51 PM EDT [facility] Hemoglobin 12.7 11.7 - 15.5 g/dL 12/20/2023 12:51 PM EDT [facility] Hematocrit 38.9 35.7 - 45.8 % 12/20/2023 12:51 PM EDT [facility] Mean Cell Volume 91.7 82.6 - 94.4 fL 12/20/2023 12:51 PM EDT [facility] Mean Cell Hemoglobin 30.0 27.1 - 32.0 pg 12/20/2023 12:51 PM EDT [facility] Mean Cell Hemoglobin Concentration 32.6 31.7 - 35.0 g/dL 12/20/2023 12:51 PM [facility] Platelet 86(L) 145 - 357 x10(3)/[facility] 12/20/2023 12:51 PM [facility] Mean Platelet Volume 11.7 7.6 - 12.9 fL 12/20/2023 12:51 PM [facility] RDW Standard Deviation 45.6 37.0 - 46.0 fL 12/20/2023 12:51 PM [facility] RDW coefficient of variation 13.5 11.5 - 14.1 % 12/20/2023 12:51 PM [facility] NRBC% auto 0.0 % 12/20/2023 12:51 PM [facility] NRBC Absolute 0.00 0.00 - 0.00 x10(3)/[facility] 12/20/2023 12:51 PM [facility] Neutrophil % 64.6 % 12/20/2023 12:51 PM [facility] Neutrophil Absolute (ANC) - Automated 4.03 1.70 - 6.10 x10(3)/[facility] 12/20/2023 12:51 PM [facility] Lymph % 22.4 % 12/20/2023 12:51 PM [facility] Lymph Absolute 1.40 0.90 - 3.20 x10(3)/[facility] 12/20/2023 12:51 PM [facility] Monocyte % 11.9 % 12/20/2023 12:51 PM [facility] Monocyte Absolute 0.74 0.30 - 0.90 x10(3)/[facility] 12/20[facility] Eos % 0.6 % 12/20[facility]2023 12[facility] Eos Absolute 0.04 0.00 - 0.40 x10(3)/[facility] 12/20[facility]2023 12[facility] Basophil % 0.2 % 12/20/2023 12:51 PM EDT [facility] Baso Absolute 0.01 0.00 - 0.10 x10(3)/mcL 12/20/2023 12:51 PM EDT [facility] Immature Gran % 0.3 % 12:51 PM EDT [facility] Immature Gran Absolute 0.02 0.00 - 0.04 x10(3)/mcL 12/20/2023 12:51 PM EDT [facility] Blood VENOUS BLOOD SPECIMEN / Unknown Venipuncture / Unknown 12/20/2023 12:29 PM EDT 12/20/2023 12:29 PM EDT Evin Little MD HEMATOLOGY ORDERABL ES [facility] [place] [address] documented in this encounter Visit Diagnoses Diagnosis Thrombocytopenia Thrombocytopenia, unspecified documented in this encounter Care Teams Court Orderly Relationship Specialty Start Date End Date Aysha Johnson MD [address] [place] [address] PCP - General Family Medicine 12/12/23 documented as of this encounter
--- OUTSIDE RECORDS SUMMARY | 2024-05-18 16:56 | XMS_ITS | Encounter Summary ---
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 Procedures PRO UPPER GI ENDOSCOPY, DIAGNOSTIC PRO ANESTH, UGI ENDOSCOPY NOS EGD, UPPER GI ENDOSCOPY (WRVU 2.09) Juliette Chauhan MD [facility] [place] [address] [facility] Referral ID Status Reason Start Date Expiration Date Visits Re quested Visits Authorized [id number] 1 1 Encounter Details Date Type Department Care Team (Late st Contact Info) Description 01/23/2023 11:15 AM EDT - 01/23/2023 11:45 AM EDT [place] [address] Juliette Chauhan MD [facility] [place] [address] EGD, UPPER GI ENDOSCOPY (WRVU 2.09) Social [...] the day after the procedure, use an wqnw-pfc-eehlrxx spray to numb your throat. Sucking on [...] occurs, please contact your Doctor. Please call [phone] before 8pm Mon-Fri with problems, questions or concerns. If you call after 8pm or on weekends, call the Hospital at [phone] and ask to speak to the Toolroom Checker carton filling machine operator and the machine tank operator will contact that person for you. [...] any problems. Where can you learn more? [facility] View your After Visit Summary and more online at [email or web address] If you would like to provide feedback about your hospital experience, please call the Office of Patient and Family Relations at . If you have received this After Visit Summary in error, please immediately return it in person to the department, or notify the [facility] Privacy Office by calling toll free at between the hours of 8AM and 5PM to arrange for our retrieval of the documents at no cost to you. Content Version: 12.2 ?? [id number] [employer]. Care instructions adapted under license by [facility]. If you have questions about a medical condition or this instruction, always ask your healthcare professional. [employer] disclaims any warranty or liability for your [...] tablet Take 1 tablet by mouth daily. omeprazole (PriLOSEC) 40 mg Capsule, Delayed Release(E.C.) Take 1 capsule by mouth daily. 30 capsule 11 06/06/2022 04/29/2023 fluconazole (Diflucan) 100 mg Tablet TAKE 2 TABLETS BY MOUTH ON DAY 1 THEN TAKE 1 TABLET BY MOUTH ONCE DAILY SAME TIME EACH DAY FOR NEXT 14 DAYS 08/16/2021 08/08/2023 diphenhydrAMINE (BENADRYL) 25 mg Capsule Take 25 mg by mouth every 6 hours as needed for Itching. 04/28/2024 fenofibrate (TRICOR) 145 mg Tablet Reported on 08/21/2016 02/17/201504/28 nystatin (MYCOSTATIN) 100,000 unit/mL Suspension as needed. 0 05/19/2015 04/28/2024 clonazePAM (KLONOPIN) 0.5 mg Tablet nightly. 02/21/2015 12/20/2023 red yeast rice 600 mg Tab Take 600 mg by mouth 2 times daily. 08/08/2023 triamcinolone (KENALOG) 0.1 % cream Apply 1 [...] 02/24/2009 04/28/2024 documented as of this encounter H&P Notes [...] Associated Diagnosis Comments Upper GI Endoscopy, Diagnostic (37783) 01/23/2023 12:23 PM EDT Hepatic cirrhosis, unspecified hepatic cirrhosis type, unspecified whether ascites present UPPER GI ENDOSCOPY Routine 01/23/2023 12 :11 PM EDT documented in this encounter Results * UPPER GI ENDOSCOPY (01/23/2023 12:11 PM EDT) UPPER GI ENDOSCOPY [facility] Endoscopy Procedure Date: 01/23/2023 12:11 PM ? Patient Name: Milka Corbett ? N: [id number] ? Date of : 1940 ? Age: 82 ? Order #: [id number] ? Instrument Name: [id number] ? Procedure: ? Upper GI endoscopy Indications: [...] 01/23/2023 12:1 1 PM EDT Salome Mcarthur LUBE ATTENDANT GENERAL SURGICAL OR DERABLES PROVATION documented in [...] RN) documented in this encounter Care Teams Inspector Metal Fabricating Relationship Specialty Start Date End Date Salome Mcarthur, LUBE ATTENDANT [address] [place] [address] PCP - General Family Medicine 05/30/15 12/11/23 documented as of this encounter
--- OUTSIDE RECORDS SUMMARY | 2024-05-18 16:56 | XMS_ITS | Encounter Summary ---
Author Organization [facility] Address [facility] [place] [address] Care Team Providers Care Instrument Specialist Name Role Phone Salome Mcarthur APRN Primary Care Provider [phone] Reason for Visit * Reason Comments Medication Refill Encounter Details Date Type Department Care Team (Late st Contact Info) Description 04/28/2023 [place] [address] Molly Cui, TEXTURING MACHINE FIXER [facility] [place] [address] Gastroesophageal reflux disease without esophagitis Social History [...] reflux documented in this encounter Care Teams Instrument Specialist Relationship Specialty Start Date End Date Salome Mcarthur APRN [address] [facility] [address] [place] [address] PCP - General Family Medicine 05/30/15 12/11/23 documented as of this encounter
--- OUTSIDE RECORDS SUMMARY | 2024-05-18 16:56 | XMS_ITS | Encounter Summary ---
[place] [address] Care Team Providers Care Welt Wheeler Name Role Phone Salome Mcarthur APRN Primary Care Provider [phone] Encounter Details Date Type Department Care Team (Late st Contact Info) Description 10/08/2023 Telephone [place] [address] Leyla Daily Social History Tobacco [...] on filedocumented in this encounter Care Teams Welt Wheeler Relationship Specialty Start Date End Date Salome Mcarthur APRN [address] [place] [address] PCP - General Family Medicine 05/30/15 12/11/23 documented as of this encounter
--- OUTSIDE RECORDS SUMMARY | 2024-05-18 16:56 | XMS_ITS | Encounter Summary ---
Author Organization [facility] [place] [address] Care Team Providers Care Sail Maker Name Role Phone Salome Mcarthur APRN Primary Care Provider [phone] Encounter Details Date Type Department Care Team (Latest Contact Info) Description 12/05/2022 12:15 PM EDT Laboratory Appointment Lab [address] [place] [phone] Hepatic cirrhosis, unspecified hepatic cirrhosis type, unspecified [...] 12:22 PM EDT) Neutrophil % 56.6 % [facility] Neutrophil Absolute 2.71 1.70 - 6.10 x10(3)/[facility] LABORATORY Lymph % 30.5 % [facility] Lymphocytes Abs 1.5 0.9 - 3.2 x10(3)/[facility] LABORATORY Monocyte % 9.2 % [facility] Monocyte Abs 0.4 0.3 - 0.9 x10(3)/[facility] LABORATORY Eos % 2.9 % [facility] Eosinophils Abs 0.1 0.0 - 0.4 x10(3)/[facility] LABORATORY Basophil % 0.4 % [facility] Baso Absolute 0.0 0.0 - 0.1 x10(3)/[facility] LABORATORY Immature Gran % 0.40 % [facility] Comment: Immature granulocytes(IG's)percentage and absolute count will include metamyelocytes, myelocytes, and promyelocytes. Blood smears from CBCs yielding IG's will be scanned manually for concordance. If this scan disagrees with the automated IG or if promyelocytes are noted, a manual differential will be performed. Immature Gran Absolute 0.02 0.00 - 0.04 x10(3)/[facility] LABORATORY Blood 12/05/2022 12:2 2 PM EDT 12/05/2022 12:47 PM EDT Narrative Resulting Agency Comment Spec In Lab Molly Cui APRN HEMATOLOGY ORDERAB LES [facility] [place] [address] * (ABNORMAL) Hemogram (12/05/2022 12:22 PM EDT) White Blood Cell 4.8 4.0 - 9.5 x10(3)/mc L [facility] Red Blood Cell 4.13 4.00 - 5.21 x10(6)/mc L [facility] Hemoglobin 12.8 11.7 - 15.5 g/dL [facility] Hematocrit 38.5 35.7 - 45.8 % [facility] Mean Cell Volume 93.2 82.6 - 94.4 fL [facility] Mean Cell Hemoglobin 31.0 27.1 - 32.0 pg [facility] Mean Cell Hemoglobin Concentration 33.2 31.7 - 35.0 g/dL [facility] Platelet 91(L) 145 - 357 x10(3)/mc L [facility] RDW Standard Deviation 46.7(H) 37.0 - 46.0 fL [facility] RDW coefficient of variation 13.8 11.5 - 14.1 % [facility] Mean Platelet Volume 11.2 7.6 - 12.9 fL [facility] NRBC% auto 0.0 % [facility] NRBC Absolute 0.000 0.000 - 0.000 x10(3)/ L [facility] Blood 12/05/2022 12:2 2 PM EDT 12/05/2022 12:47 PM EDT Narrative Resulting Agency Comment Spec In Lab Molly Cui APRN HEMATOLOGY ORDERAB LES [facility] [place] [address] * (ABNORMAL) Comprehensive metabolic panel (non-fasting) (12/05/2022 12:22 PM EDT) Glucose 114 65 - 199 mg/dL [facility] Comment:Diabetes: >=200 mg/d L plus symptoms Blood Urea Nitrogen 17 8 - 18 mg/dL [facility] Creatinine 0.71 0.70 - 1.20 mg/dL [facility] Sodium 142 135 - 145 mmol/L [facility] Potassium 4.1 3.5 - 5.0 mmol/L [facility] Comment: Please note: ??Patients with WBC >100,000 may have falsely elevated Potassium levels. ??For accurate Potassium quantification in these patients send serum separator tube (gold top) for subsequent determinations. ??Contact the Clinical Chemistry Laboratory if there are any questions. Chloride 105 98 - 107 mmol/L [facility] Carbon Dioxide 28 22 - 31 mmol/L [facility] Anion Gap 9 5 - 15 mmol/L [facility] Calcium 9.7 8.5 - 10.5 mg/dL [facility] Protein, Total 7.0 6.1 - 8.0 g/dL [facility] Albumin 4.2 3.2 - 5.2 g/dL [facility] Aspartate Aminotransferase 33(H) 0 - 30 unit/L [facility] Alanine Aminotransferase 32(H) 0 - 30 unit/L [facility] Alkaline Phosphatase 136(H) 35 - 105 unit/L [facility] Bilirubin, Total 0.6 0.2 - 1.3 mg/dL [facility] Est Glomerular Filtration Rate 85 >=60 mL/min/1. 73 m?? [facility] Comment: This patient's estimated GFR [...] Lab Molly Cui APRN CHEMISTRY ORDERABL ES [facility] [place] [address] * (ABNORMAL) Prothrombin Time (12/05/2022 12:22 PM EDT) Prothrombin Time 13.2(H) 9.4 - 12.5 sec [facility] International Normalization Ratio 1.2 [facility] Comment: An INR <2.0 indicates [...] APRN HEMATOLOGY ORDERAB LES Performing Organization Address City/State/[facility] Co de Phone Number [facility] [place] [address] documented in this encounter Visit Diagnoses Diagnosis Hepatic cirrhosis, unspecified hepatic cirrhosis type, unspecified whether ascites present documented in this encounter Care Teams Sail Maker Relationship Specialty Start Date End Date Salome Mcarthur APRN [address] [place] [address] PCP - General Family Medicine 05/30/15 12/11/23 documented as of this encounter
--- OUTSIDE RECORDS SUMMARY | 2024-05-18 16:56 | XMS_ITS | Encounter Summary ---
Author Organization [facility] [place] [address] Care Team Providers Care Hoop Punch And Coiler Operator Name Role Phone Salome Mcarthur APRN Primary Care Provider [phone] Encounter Details Date Type Department Care Team (Late st Contact Info) Description 12/06/2023 Orders Only Cardiology at [address] [address] Jac Cheng MD [facility] [place] [address] Chest pain on breathing (Primary Dx) Social [...] respiration documented in this encounter Care Teams Hoop Punch And Coiler Operator Relationship Specialty Start Date End Date Salome Mcarthur, DEPLOYMENT TECHNICIAN [address] [place] [address] PCP - General Family Medicine 05/30/15 12/11/23 documented as of this encounter
--- OUTSIDE RECORDS SUMMARY | 2024-05-18 16:56 | XMS_ITS | Encounter Summary ---
Author Organization [facility] [place] [address] Care Team Providers Care Solid Center Winder Name Role Phone Saolme Mcarthur APRN Primary Care Provider [phone] Encounter Details Date Type Department Care Team [...] on filedocumented in this encounter Care Teams Solid Center Winder Relationship Specialty Start Date End Date Salome Mcarthur, LORETO [address] [place] [address] PCP - General Family Medicine 05/30/15 12/11/23 documented as of this encounter
--- OUTSIDE RECORDS SUMMARY | 2024-05-18 16:56 | XMS_ITS | Encounter Summary ---
Author Organization [facility] [place] [address] Care Team Providers Care Mattress Filler Name Role Phone Aysha Johnson MD Primary Care Provider [phone] Encounter Details Date Type Department Care Team (Late st Contact Info) Description 12/16/2023 Telephone Cardiology at [address] [phone] Katelynn Fan, RN Social History Tobacco Use Types Packs/Day Years Used Date Smoking Tobacco: Never Smokeless Tobacco: Never Alcohol Use Standard Drinks/Week Comments Yes 0 (1 standard drink = 0.6 oz pur e alcohol) once per year [facility] Inpatient Questions Answer Date Recorded Does [...] [facility] the [facility]. Patient requested change. Home number left for call back. RTC to patient stating prescriptions for both NTG and ranolazine were approved and prescriptions sent to the [facility] in [facility]. Patient verbalizes understanding and has no further questions or concerns at this time. Katelynn Fan RN, BSN Ambulatory Cardiology Clinic, [facility] [phone] Katelynn Fan RN, BSN Ambulatory Cardiology [facility], [facility] [phone] documented in this encounter Plan of Treatment Not on file documented as of this encounter Visit Diagnoses Not on filedocumented in this encounter Care Teams Mattress Filler Relationship Specialty Start Date End Date Aysha Johnson MD [address] [place] [address] PCP - General Family Medicine 12/12/23 documented as of this encounter
--- OUTSIDE RECORDS SUMMARY | 2024-05-18 16:56 | XMS_ITS | Encounter Summary ---
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 Procedures PRO UPPER GI ENDOSCOPY, DIAGNOSTIC PRO ANESTH, UGI ENDOSCOPY NOS EGD, UPPER GI ENDOSCOPY (WRVU 2.09) Juliette Chauhan MD [facility] [place] [address] [facility] Referral ID Status Reason Start Date Expiration Date Visits Re quested Visits Authorized [id number] 1 1 Encounter Details Date Type Department Care Team (Latest Contact Info) Description 01/23/2023 11:52 AM EDT - 01/23/2023 1:44 PM EDT Hospital Encounter [place] [address] Juliette Chauhan MD [facility] [place] [address] Discharge Disposition: Home Social History Tobacco Use [...] the day after the procedure, use an ghxv-pll-uqboaxb spray to numb your throat. Sucking on [...] occurs, please contact your Doctor. Please call [phone] before 8pm Mon-Fri with problems, questions or concerns. If you call after 8pm or on weekends, call the Hospital at [phone] and ask to speak to the Seo Specialist physical education department chair and the pressing machine operator will contact that person for you. When should you call for help? Call [phone] anytime you think you may need emergency [...] any problems. Where can you learn more? [facility] View your After Visit Summary and more online at [email or web address] If you would like to provide [...] cost to you. Content Version: 12.2 ?? [id number] [employer]. Care instructions adapted under license by [facility]. If you have questions about a medical condition or this instruction, always ask your healthcare professional. [employer] disclaims any warranty or liability for your [...] directed. 05/02/2020 fluticasone propionate (FLONASE) 50 mcg/actuation Pep, Suspension 1 spray daily. pramipexole (MIRAPEX) 0.125 [...] Associated Diagnosis Comments Upper GI Endoscopy, Diagnostic (75591) 01/23/2023 12:23 PM EDT Hepatic cirrhosis, unspecified hepatic cirrhosis type, unspecified whether ascites present UPPER GI ENDOSCOPY Routine 01/23/2023 12 :11 PM EDT documented in this encounter Results * UPPER GI ENDOSCOPY (01/23/2023 12:11 PM EDT) UPPER GI ENDOSCOPY [facility] Endoscopy Procedure Date: 01/23/2023 12:11 PM ? Patient Name: Milka Corebtt ? Date of : 1940 ? Age: 82 ? Order #: [id number] ? Instrument Name: [id number] ? Procedure: ? Upper GI endoscopy Indications: [...] PM PROVATION 01/23/2023 12:1 1 PM EDT Slaome Mcarthur APRN GENERAL SURGICAL OR DERABLES PROVATION [...] RN) documented in this encounter Care Teams Hand Stitcher Relationship Specialty Start Date End Date Salome Mcarthur, CRIMINAL JUSTICE PROFESSOR [address] [place] [address] PCP - General Family Medicine 05/30/15 12/11/23 documented as of this encounter
--- OUTSIDE RECORDS SUMMARY | 2024-05-18 16:56 | XMS_ITS | Encounter Summary ---
Author Organization [facility] [place] [address] Care Team Providers Care Waiter/Waitress Tourist Class Name Role Phone Salome Mcarthur APRN Primary Care Provider [phone] Reason for Visit * Diagnostic Test (Routine) - Closed Specialty Diagnoses / Procedures Referred By Jose bermudez Referred To Contact Radiology Diagnoses Lung nodule Procedures NM PET CT Skull Base to Mid-thigh Aysha Johnson MD [address] [place] [address] [place] [address] Referral ID Status Reason Start Date Expiration Date V isits Requested Visits Authorized [id number] Closed Specialty Service Requested 10/08/2023 04/09/2025 1 1 Encounter Details Date Type Department Care Team (Latest Contact Info) Description 10/24/2023 11:12 AM EDT - 10/24/2023 11:59 PM EDT Hospital Encounter [place] [address] Aysha Johnson MD [address] [place] [address] Discharge Disposition: Home Social History [...] directed. 05/02/2020 fluticasone propionate (FLONASE) 50 mcg/actuation [place], Suspension 1 spray daily. pramipexole (MIRAPEX) 0.125 [...] tablet Take 1 tablet by mouth daily. clobetasoL (Temovate) 0.05 % Cream Apply topically 2 times daily. 10/18/2023 04/28/2024 metoprolol succinate XL (Toprol-XL) 25 mg ER [...] Glucose, POC 108 65 - 199 mg/dL [facility] Comment: Supplemental ranges: <140 mg/dL before meals <180 mg/dL all other times of the day Blood 10/24/2023 11:3 3 AM EDT 10/24/2023 11:33 AM EDT Aysha Johnson MD POINT OF CARE TEST O RDERABLES [facility] [place] [address] documented in this encounter Visit Diagnoses Not on filedocumented in this encounter Care Teams Waiter/Waitress Tourist Class Relationship Specialty Start Date End Date Salome Mcarthur APRN [address] [place] [address] PCP - General Family Medicine 05/30/15 12/11/23 documented as of this encounter
--- OUTSIDE RECORDS SUMMARY | 2024-05-18 16:56 | XMS_ITS | Encounter Summary ---
Author Organization [facility] [address] Care Team Providers Care Blood Coordinator Name Role Phone Aysha Johnson MD Primary Care Provider [phone] Encounter Details Date Type Department Care Team [...] on filedocumented in this encounter Care Teams Blood Coordinator Relationship Specialty Start Date End Date Aysha Johnson MD [address] [place] [address] PCP - General Family Medicine 12/12/23 documented as of this encounter
--- OUTSIDE RECORDS SUMMARY | 2024-05-18 16:56 | XMS_ITS | Encounter Summary ---
[place] [address] Care Team Providers Care Forest Products Gatherer Name Role Phone Salome Mcarthur APRN Primary Care Provider [phone] Reason for Referral * Diagnostic Test (Routine) - Closed Specialty Diagnoses / Procedures Referred By Contac t Referred To Contact Radiology Diagnoses Lung nodule Procedures NM PET CT Skull Base to Mid-thigh Aysha Johnson MD [address] [place] [address] [place] [address] Referral ID Status Reason Start Date Expiration Date V isits Requested Visits Authorized [id number] Closed Specialty Service Requested 10/08/2023 04/09/2025 1 1 Reason for Visit * Diagnostic Test (Routine) - Closed Specialty Diagnoses / Procedures Referred By Contac t Referred To Contact Radiology Diagnoses Lung nodule Procedures NM PET CT Skull Base to Mid-thigh Aysha Johnson MD [address] [place] [address] [place] [address] Referral ID Status Reason Start Date Expiration Date V isits Requested Visits Authorized [id number] Closed Specialty Service Requested 10/08/2023 04/09/2025 1 1 Encounter Details Date Type Department Care Team (Latest Contact Info) Description 10/24/2023 11:12 AM EDT - 10/24/2023 11:59 PM EDT Hospital En[place] [address] Aysha Johnson MD [address] [place] [address] Lung nodule Discharge Disposition: Home Social History [...] directed. 05/02/2020 fluticasone propionate (FLONASE) 50 mcg/actuation [place], Suspension 1 spray daily. pramipexole (MIRAPEX) 0.125 [...] Mid-thigh (10/24/2023 12:50 PM EDT) WORKSTATION ID [id number] DH RAD Anatomical Region Laterality Modality Positron [...] questions please contact the health director of critical care that requested your imaging first. ? Electronically signed by: Hernan Winkler [facility] ([phone]), at 10/24/2023 3:59 PM Narrative 10/24/2023 3:59 PM EDT EXAMINATION: NM PET CT STANDARD SKULL BASE TO MID-THIGH CLINICAL HISTORY: lll nodule 2 cm (doubled in size); evaluate for malignancy R91.1, Solitary pulmonary nodule TECHNIQUE: Following IV injection of 18-jsdrhz-9-deoxyglucose (FDG) a standard uptake of approximately 60 [...] pulmonary nodule TECHNIQUE: Following IV injection of 38-aejjja-1-deoxyglucose (FDG) astandard uptake of approximately 60 minutes, [...] have questions please contactthe health director of critical care that requested your imaging first. Electronically signed by: Hernan W[facility] ([phone]),at 10/24/2023 3:59 PM Asyha Johnson MD IMG PET ORDERABLES documented in [...] Arm documented in this encounter Care Teams Forest Products Gatherer Relationship Specialty Start Date End Date Salome Mcarthur, MOBILE SALES ASSISTANT [address] [place] [address] PCP - General Family Medicine 05/30/15 12/11/23 documented as of this encounter
--- OUTSIDE RECORDS SUMMARY | 2024-05-18 16:57 | XMS_ITS | Encounter Summary ---
Author Organization Count Includes [facility] Address [facility] [place] [address] Care Team Providers Care Scraper Burrer Name Role Phone Salome Mcarthur APRN Primary Care Provider [phone] Reason for Visit * Auth/Cert Specialty Diagnoses [...] Expiration Date Visits Re quested Visits Authorized [id number] 1 1 Encounter Details Date Type Department Care Team (Latest Contact Info) Description 09/26/2020 11:28 AM EDT - 09/26/2020 12:49 PM EDT Hospital [place] [address] Lani Wallis APRN [facility] [place] [address] Hepatic cirrhosis, unspecified hepatic cirrhosis type, unspecified [...] directed. 05/02/2020 fluticasone propionate (FLONASE) 50 mcg/actuation [place], Suspension 1 spray daily. pramipexole (MIRAPEX) 0.125 [...] tablet Take 1 tablet by mouth daily. [place] 10 mcg/dose(250 mcg/mL) 2.4 mL Pen [...] times daily. 60 tablet 5 02/22/2017 06/06/2022 diphenhydrAMINE (BENADRYL) 25 mg Capsule Take 25 [...] who have questions please contact the health skin care consultant that requested your imaging first. Thank you for letting us participate in the care of this patient. If you are a health care provider and have any questions regarding this report, please contact the number below. For patients who have questions, please contact the health skin care consultant that requested your imaging first. ??Meghan Cardozo, [facility] Dept Chair - Rad Electronically Signed Final Report ?? 09/26/2020 11:56 am Narrative 09/26/2020 11:57 AM EDT Abdominal ? (Signed Final 09/26/2020 11:56 am) PATIENT INFO: ID #: ? [id number] ?: ??[birth year] (80 yrs)(F) Name: ? NICK MENDIETA ?Visit Date: 09/26/2020 11:29 am PERFORMED BY: Performed By: ? Crista Zhong RDMS Attending: ?Juliane GALLO, Meghan Ventura Referred By: ?LANI WALLIS Secondary Phy.: ?? LANI WALLIS LUDLOW MACHINE OPERATOR Location: ? [place] SERVICE(S) PROVIDED: [facility] - Hepatology Protocol - Abdominal ? 71550 Limited Survey Single Organ or Quadrant - [id number] INDICATIONS: cirrhosis, screen for hcc COMPARISON: US: [...] 09/26/2020 11:56 am) PATIENT INFO: ID #: [id number] : [birth year] (80 yrs)(F) Name: NICK MENDIETA Visit Date: 09/26/2020 11:29 am PERFORMED BY: Performed By: Crista Zhong RDMS Attending: Meghan Cardozo MD Referred By: LANI WALLIS [facility] Phy.: LANI WALLIS APRN Location: [place] SERVICE(S) PROVIDED: [facility] - Hepatology Protocol - Abdominal 41908 Limited Survey Single Organ or Quadrant - [id number] INDICATIONS: cirrhosis, screen for hcc COMPARISON: US: [...] who have questions please contact the health skin care consultant that requested your imaging first. Thank you for letting us participate in the care of this patient. If you are a health care provider and have any questions regarding this report, please contact the number below. For patients who have questions, please contact the health skin care consultant that requested your imaging first. Meghan Cardozo, [facility] & Dept Chair - Rad Electronically Signed Final Report 09/26/2020 11:56 am Lani Wallis APRN [facility] GEN ORDERAB LES documented in this encounter Visit Diagnoses Diagnosis Hepatic cirrhosis, unspecified hepatic cirrhosis type, unspecified whether ascites present documented in this encounter Care Teams Scraper Burrer Relationship Specialty Start Date End Date Salome Mcarthur APRN [address] [place] [address] PCP - General Family Medicine 05/30/15 12/11/23 documented as of this encounter
--- OUTSIDE RECORDS SUMMARY | 2024-05-18 16:57 | XMS_ITS | Encounter Summary ---
Author Organization [facility] Address [facility] [place] [address] Care Team Providers Care Account Underwriter Name Role Phone Salome Mcarthur APRN Primary Care Provider [phone] Encounter Details Date Type Department Care Team (Latest Contact Info) Description 06/06/2022 11:07 AM EST - 06/06/2022 11:59 PM [facility] Hospital [place] [phone] Molly Wallis MANAGEMENT INSTRUCTOR [facility] [place] [address] Hepatic cirrhosis, unspecified hepatic cirrhosis type, unspecified [...] directed. 05/02/2020 fluticasone propionate (FLONASE) 50 mcg/actuation [place], Suspension 1 spray daily. pramipexole (MIRAPEX) 0.125 [...] signed by: Avila Keith MD, [facility] ([phone]), at 06/06/2022 11:48 AM Thank you for letting us participate in the care of this patient. If you are a health care provider and have any questions regarding this report, please contact the number above. For patients who have questions, please contact the health day care attendant that requested your imaging first. ? Avila Keith, Staff Physician Electronically Signed Final Report ?? 06/06/2022 11:54 am Narrative 06/06/2022 11:55 AM EST Abdominal ? (Signed Final 06/06/2022 11:54 am) PATIENT INFO: ID #: ? [id number] ?: ??42 (81 yrs)(F) Name: ? MILKA MENDIETA ?Visit Date: 06/06/2022 11:20 am PERFORMED BY: Attending: ?Avila Keith MD Performed By: ? Sosa Joshi RDMS Referred By: ?MOLLY WALLIS Secondary Phy.: ?? MOLLY WALLIS MANAGEMENT INSTRUCTOR Location: ? [place] SERVICE(S) PROVIDED: [facility] - Hepatology Protocol - Abdominal ?95188 Limited Survey Single Organ or Quadrant - [id number] INDICATIONS: cirrhosis, screen for hcc ------ LIVER: [...] present on 4 quadrant evaluation. Procedure Note Foster, Avila L, MD - 06/06/2022 Abdominal (Signed Final 06/06/2022 11:54 am) PATIENT INFO: ID #: [id number] : 42 (81 yrs)(F) Name: MILKA MENDIETA Visit Date: 06/06/2022 11:20 am PERFORMED BY: Attending: Avila Keith MD Performed By: Sosa Joshi RDMS Referred By: MOLLY WALLIS [facility] Phy.: MOLLY WALLIS APRN Location: [place] SERVICE(S) PROVIDED: [facility] - Hepatology Protocol - Abdominal 85823 Limited Survey Single Organ or Quadrant - [id number] INDICATIONS: cirrhosis, screen for hcc ------ LIVER: [...] signed by: Avila Keith MD, [facility] ([phone]), at 06/06/2022 11:48 AM Thank you for letting us participate in the care of this patient. If you are a health care provider and have any questions regarding this report, please contact the number above. For patients who have questions, please contact the health day care attendant that requested your imaging first. Avila Keith, Staff Physician Electronically Signed Final Report 06/06/2022 11:54 am Molly Wallis APRN [facility] GEN ORDERAB LES documented in this encounter Visit Diagnoses Diagnosis Hepatic cirrhosis, unspecified hepatic cirrhosis type, unspecified whether ascites present documented in this encounter Care Teams Account Underwriter Relationship Specialty Start Date End Date Salome Mcarthur APRN [address] [place] [address] PCP - General Family Medicine 05/30/15 12/11/23 documented as of this encounter
--- OUTSIDE RECORDS SUMMARY | 2024-05-18 16:57 | XMS_ITS | Encounter Summary ---
Author Organization [facility] Address [facility] [place] [address] Care Team Providers Care Communications Marketing Intern Name Role Phone Salome Mcarthur APRN Primary Care Provider [phone] Encounter Details Date Type Department Care Team (Late st Contact Info) Description 01/03/2022 Telephone Gastroenterology at [facility] [place] [phone] KyleJuly Social History Tobacco Use Types Packs/Day [...] encounter Miscellaneous Notes * Telephone Encounter - [place] - 01/03/2022 9:03 AM EDT Milka Corbett [id number] Diagnosis/Indication: cirrhosis with varices, reassess. EGD ordered [...] No 18. You must have a responsible libertarian who will drive you to your procedure, stay on campus for the entire duration of your procedure, and drive you home from your procedure. Who will likely be your car driver for the procedure? *Please Verify [...] on filedocumented in this encounter Care Teams Communications Marketing Intern Relationship Specialty Start Date End Date Salome Mcarthur APRN [address] [place] [address] PCP - General Family Medicine 05/30/15 12/11/23 documented as of this encounter
--- OUTSIDE RECORDS SUMMARY | 2024-05-18 16:57 | XMS_ITS | Encounter Summary ---
Author Organization [facility] [place] [address] Care Team Providers Care Customer Solutions Specialist Name Role Phone Salome Mcarthur APRN Primary Care Provider [phone] Encounter Details Date Type Department Care Team (Latest Contact Info) Description 12/06/2020 12:45 PM EDT Laboratory Appointment Lab [address] [place] [phone] Hepatic cirrhosis, unspecified hepatic cirrhosis type, unspecified [...] 12:34 PM EDT) Neutrophil % 50.1 % [facility] Neutrophil Absolute 2.66 1.70 - 6.10 x10(3)/[facility] LAB[facility] Lymph % 36.7 % [facility] Lymphocytes Abs 2.0 0.9 - 3.2 x10(3)/[facility] LABOR[facility]ORY Monocyte % 9.6 % [facility] Monocyte Abs 0.5 0.3 - 0.9 x10(3)/[facility] LABOR[facility]ORY Eos % 2.6 % [facility] Eosinophils Abs 0.1 0.0 - 0.4 x10(3)/[facility] LABOR[facility] Basophil % 0.6 % [facility] Baso Absolute 0.0 0.0 - 0.1 x10(3)/[facility] LABORATORY Immature Gran % 0.40 % [facility] Comment: Immature granulocytes(IG's)percentage and absolute count will include metamyelocytes, myelocytes, and promyelocytes. Blood smears from CBCs yielding IG's will be scanned manually for concordance. If this scan disagrees with the automated IG or if promyelocytes are noted, a manual differential will be performed. Immature Gran Absolute 0.02 0.00 - 0.04 x10(3)/[facility] LABOR[facility] Blood 12/06/2020 12:3 4 PM EDT 12/06/2020 12:44 PM EDT Narrative Resulting Agency Comment Spec In Lab Molly Cui FIRE REGULATOR HEMATOLOGY ORDERAB LES [facility] [place] [address] * (ABNORMAL) Hemogram (12/06/2020 12:34 PM EDT) White Blood Cell 5.3 4.0 - 9.5 x10(3)/mc L [facility] Red Blood Cell 3.98(L) 4.00 - 5.21 x10(6)/mc L [facility] Hemoglobin 12.3 11.7 - 15.5 gm/dL [facility] Hematocrit 37.0 35.7 - 45.8 % [facility] Mean Cell Volume 93.0 82.6 - 94.4 fL [facility] Mean Cell Hemoglobin 30.9 27.1 - 32.0 pg [facility] Mean Cell Hemoglobin Concentration 33.2 31.7 - 35.0 gm/dL [facility] Platelet 93(L) 145 - 357 x10(3)/[facility] LABORATORY RDW Standard Deviation 45.1 37.0 - 46.0 [facility] LABORATORY RDW coefficient of variation 13.2 11.5 - 14.1 % [facility] Mean Platelet Volume 11.4 7.6 - 12.9 fL [facility] NRBC% auto 0.0 % [facility] NRBC Absolute 0.000 0.000 - 0.000 x10(3)/ L [facility] Blood 12/06/2020 12:3 4 PM EDT 12/06/2020 12:44 PM EDT Narrative Resulting Agency Comment Spec In Lab Molly Cui APRN HEMATOLOGY ORDERAB LES [facility] [place] [address] * (ABNORMAL) Comprehensive metabolic panel (non-fasting) (12/06/2020 12:34 PM EDT) Pathologist [facility] Glucose 90 65 - 199 mg/dL [facility] Comment:Diabetes: >=200 mg/d L plus symptoms Blood Urea Nitrogen 23(H) 8 - 18 mg/dL [facility] Creatinine 0.78 0.70 - 1.20 mg/dL [facility] Sodium 141 135 - 145 mmol/L [facility] Potassium 4.4 3.5 - 5.0 mmol/L [facility] Comment: Please note: ??Patients with WBC >100,000 may have falsely elevated Potassium levels. ??For accurate Potassium quantification in these patients send serum separator tube (gold top) for subsequent determinations. ??Contact the Clinical Chemistry Laboratory if there are any questions. Chloride 103 98 - 107 mmol/L [facility] Carbon Dioxide 26 22 - 31 mmol/L [facility] Anion Gap 12 5 - 15 mmol/L [facility] Calcium 10.2 8.5 - 10.5 mg/dL [facility] Protein, Total 6.9 6.1 - 8.0 gm/dL [facility] Albumin 4.2 3.2 - 5.2 gm/dL [facility] Aspartate Aminotransferase 35(H) 0 - 30 unit/L [facility] Alanine Aminotransferase 36(H) 0 - 30 unit/L [facility] Alkaline Phosphatase 82 35 - 105 unit/L [facility] Bilirubin, Total 0.7 0.2 - 1.3 mg/dL [facility] Est Glomerular Filtration Rate 72 >=60 mL/min/1. 73 m?? [facility] Comment: This patient? s estimated [...] APRN CHEMISTRY ORDERABL ES Performing Organization Address [facility] de Phone Number [facility] [place] [address] * Prothrombin Time (12/06/2020 12:34 PM EDT) Prothrombin Time 11.9 9.4 - 12.5 sec [facility] International Normalization Ratio 1.0 [facility] Comment: An INR <2.0 [...] Organization Address [facility] Co de Phone Number [facility] [place] [address] documented in this encounter Visit Diagnoses Diagnosis Hepatic cirrhosis, unspecified hepatic cirrhosis type, unspecified whether ascites present documented in this encounter Care Teams Customer Solutions Specialist Relationship Specialty Start Date End Date Salome Mcarthur APRN [address] [place] [address] PCP - General Family Medicine 05/30/15 12/11/23 documented as of this encounter
--- OUTSIDE RECORDS SUMMARY | 2024-05-18 16:57 | XMS_ITS | Encounter Summary ---
Author Organization [facility] [place] [address] Care Team Providers Care Nutritionist Name Role Phone Salome Mcarthur APRN Primary Care Provider [phone] Encounter Details Date Type Department Care Team (Latest Contact Info) Description 09/12/2021 Transcribe [place] [phone] Salome Mcarthur APRN [address] [place] [address] Type II diabetes mellitus with neurological manifestations; [...] unspecified documented in this encounter Care Teams Nutritionist Relationship Specialty Start Date End Date Salome Mcarthur APRN [address] [place], [place] [address] PCP - General Family Medicine 05/30/15 12/11/23 documented as of this encounter
--- OUTSIDE RECORDS SUMMARY | 2024-05-18 16:57 | XMS_ITS | Encounter Summary ---
Author Organization [facility] [address] Care Team Providers Care Catcher Helper Name Role Phone Salome Mcarthur APRN Primary Care Provider [phone] Encounter Details Date Type Department Care Team (Latest Contact Info) Description 06/01/2021 10:00 AM EST Laboratory Appointment Lab [address] [place] [phone] Hepatic cirrhosis, unspecified hepatic cirrhosis type, unspecified [...] 10:31 AM EST) Neutrophil % 61.2 % [facility] Neutrophil Absolute 4.16 1.70 - 6.10 x10(3)/[facility] LABORATORY Lymph % 23.8 % [facility] Lymphocytes Abs 1.6 0.9 - 3.2 x10(3)/[facility] LABORATORY Monocyte % 12.5 % [facility] Monocyte Abs 0.8 0.3 - 0.9 x10(3)/[facility] LABORATORY Eos % 1.8 % [facility] Eosinophils Abs 0.1 0.0 - 0.4 x10(3)/[facility] LABORATORY Basophil % 0.4 % [facility] Baso Absolute 0.0 0.0 - 0.1 x10(3)/[facility] LABORATORY Immature Gran % 0.30 % [facility] [...] - 0.04 x10(3)/[facility] LABORATORY Blood 06/01/2021 10:3 1 AM EST 06/01/2021 10:41 AM EST Narrative Resulting Agency Comment Spec In Lab Molly Cui TESTER COMPRESSED GASES HEMATOLOGY ORDERAB LES [facility] [place] [address] * (ABNORMAL) Hemogram (06/01/2021 10:31 AM EST) White Blood Cell 6.8 4.0 - 9.5 x10(3)/[facility] LABORATORY Red Blood Cell 4.20 4.00 - 5.21 x10(6)/[facility] LABORATORY Hemoglobin 12.8 11.7 - 15.5 g/dL [facility] Hematocrit 38.6 35.7 - 45.8 % [facility] Mean Cell Volume 91.9 82.6 - 94.4 fL [facility] Mean Cell Hemoglobin 30.5 27.1 - 32.0 pg [facility] Mean Cell Hemoglobin Concentration 33.2 31.7 - 35.0 g/dL [facility] Platelet 93(L) 145 - 357 x10(3)/[facility] LABORATORY RDW Standard Deviation 44.9 37.0 - 46.0 [facility] LABORATORY RDW coefficient of variation 13.2 11.5 - 14.1 % [facility] Mean Platelet Volume 11.9 7.6 - 12.9 [facility] LABORATORY NRBC% auto 0.0 % [facility] NRBC Absolute 0.000 0.000 - 0.000 x10(3)/[facility] LABORATORY Blood 06/01/2021 10:3 1 AM EST 06/01/2021 10:41 AM EST Narrative Resulting Agency Comment Spec In Lab Molly Cui APRN HEMATOLOGY ORDERAB LES [facility] [place] [address] * (ABNORMAL) Comprehensive metabolic panel (non-fasting) (06/01/2021 10:31 AM EST) Glucose 187 65 - 199 mg/dL [facility] Comment:Diabetes: >=200 mg/d L plus symptoms Blood Urea Nitrogen 16 8 - 18 mg/dL [facility] Creatinine 0.61(L) 0.70 - 1.20 mg/dL [facility] Sodium 139 135 - 145 mmol/L [facility] Potassium 4.3 3.5 - 5.0 mmol/L [facility] Comment: Please note: ??Patients with WBC >100,000 may have falsely elevated Potassium levels. ??For accurate Potassium quantification in these patients send serum separator tube (gold top) for subsequent determinations. ??Contact the Clinical Chemistry Laboratory if there are any questions. Chloride 102 98 - 107 mmol/L [facility] Carbon Dioxide 25 22 - 31 mmol/L [facility] Anion Gap 12 5 - 15 mmol/L [facility] Calcium 10.0 8.5 - 10.5 mg/dL [facility] Protein, Total 6.8 6.1 - 8.0 g/dL [facility] Albumin 4.3 3.2 - 5.2 g/dL [facility] Aspartate Aminotransferase 45(H) 0 - 30 unit/L [facility] Alanine Aminotransferase 60(H) 0 - 30 unit/L [facility] Alkaline Phosphatase 95 35 - 105 unit/L [facility] Bilirubin, Total 0.7 0.2 - 1.3 mg/dL [facility] Est Glomerular Filtration Rate 86 >=60 mL/min/1. 73 m?? [facility] [...] ORDERABL ES Performing Organization Address [facility] Co de Phone Number [facility] [place] [address] * Prothrombin Time (06/01/2021 10:31 AM EST) Prothrombin Time 12.1 9.4 - 12.5 sec [facility] [...] APRN HEMATOLOGY ORDERAB LES Performing Organization Address [facility] Co de Phone Number [facility] [place] [address] documented in this encounter Visit Diagnoses Diagnosis Hepatic cirrhosis, unspecified hepatic cirrhosis type, unspecified whether ascites present documented in this encounter Care Teams Catcher Helper Relationship Specialty Start Date End Date Salome Mcarthur APRN [address] [place] [address] PCP - General Family Medicine 05/30/15 12/11/23 documented as of this encounter
--- OUTSIDE RECORDS SUMMARY | 2024-05-18 16:57 | XMS_ITS | Encounter Summary ---
Author Organization [facility] Address [facility] [place] [address] Care Team Providers Care Theatre Program Director Name Role Phone Salome Mcarthur APRN Primary Care Provider [phone] Encounter Details Date Type Department Care Team (Latest Contact Info) Description 12/05/2022 11:03 AM EDT - 12/05/2022 11:59 PM EDT Hospital [place] [phone] Molly Wallis PEDIATRIC SPORTS MEDICINE SPECIALIST [facility] [place] [address] Hepatic cirrhosis, unspecified hepatic cirrhosis type, unspecified [...] directed. 05/02/2020 fluticasone propionate (FLONASE) 50 mcg/actuation [place], Suspension 1 spray daily. pramipexole (MIRAPEX) [...] ascites. Electronically signed by: Avila Keith MD, [facility] ([phone]), at 12/05/2022 11:48 AM Thank you for letting us participate in the care of this patient. If you are a health care provider and have any questions regarding this report, please contact the number above. For patients who have questions, please contact the health child care nurse that requested your imaging first. ?Avila Keith, Staff Physician Electronically Signed Final Report ?? 12/05/2022 11:56 am Narrative 12/05/2022 11:57 AM EDT Abdominal ? (Signed Final 12/05/2022 11:56 am) PATIENT INFO: ID #: ? [id number] ?: ??[birth year] (82 yrs)(F) Name: ? MILKA MENDIETA ?Visit Date: 12/05/2022 11:36 am PERFORMED BY: Attending: ?Avila Keith MD Performed By: ? Sanjeev Marshall RDMS Referred By: ?MOLLY WALLIS Secondary Phy.: ?? MOLLY WALLIS PEDIATRIC SPORTS MEDICINE SPECIALIST Location: ? [place] [facility] - Hepatology Protocol - Abdominal ?[id number] Limited Survey Single Organ or Quadrant - [id number] INDICATIONS: cirrhosis, screen for hcc ------ LIVER: [...] 12/05/2022 11:56 am) PATIENT INFO: ID #: [id number] : 42 (82 yrs)(F) Name: MILKA MENDIETA Visit Date: 12/05/2022 11:36 am PERFORMED BY: Attending: Avila Keith MD Performed By: Sanjeev Marshall RDMS Referred By: MOLLY WALLIS [facility] Phy.: MOLLY WALLIS APRN Location: [place] SERVICE(S) PROVIDED: [facility] - Hepatology Protocol - Abdominal 44055 Limited Survey Single Organ or Quadrant - [id number] INDICATIONS: cirrhosis, screen for hcc ------ LIVER: [...] ascites. Electronically signed by: Avila Keith MD, [facility] ([phone]), at 12/05/2022 11:48 AM Thank you for letting us participate in the care of this patient. If you are a health care provider and have any questions regarding this report, please contact the number above. For patients who have questions, please contact the health child care nurse that requested your imaging first. Avila Keith, Staff Physician Electronically Signed Final Report 12/05/2022 11:56 am Molly Wallis PEDIATRIC SPORTS MEDICINE SPECIALIST IMG US GEN ORDERAB LES documented in this encounter Visit Diagnoses Diagnosis Hepatic cirrhosis, unspecified hepatic cirrhosis type, unspecified whether ascites present documented in this encounter Care Teams Theatre Program Director Relationship Specialty Start Date End Date Salome Mcarthur APRN [address] [place] [address] PCP - General Family Medicine 05/30/15 12/11/23 documented as of this encounter
--- OUTSIDE RECORDS SUMMARY | 2024-05-18 16:57 | XMS_ITS | Encounter Summary ---
Author Organization [facility] [place] [address] Care Team Providers Care Ict Account Manager Name Role Phone Salome Mcarthur APRN Primary Care Provider [phone] Encounter Details Date Type Department Care Team (Latest Contact Info) Description 05/19/2020 10:25 AM EST Laboratory Appointment Lab [address] [place] [phone] Hepatic cirrhosis, unspecified hepatic cirrhosis type, unspecified [...] Absolute 6.16(H) 1.70 - 6.10 x10(3)/mc L [facility] Lymph % 25.5 % [facility] Lymphocytes Abs 2.5 0.9 - 3.2 x10(3)/mc L [facility] Monocyte % 8.1 % [facility] Monocyte Abs 0.8 0.3 - 0.9 x10(3)/mc L [facility] Eos % 2.5 % [facility] Eosinophils Abs 0.2 0.0 - 0.4 x10(3)/mc L [facility] Basophil % 0.5 % [facility] Baso Absolute 0.0 0.0 - 0.1 x10(3)/mc L [facility] Immature Gran % 0.30 % [facility] Comment: Immature granulocytes(IG's)percentage and absolute count will include metamyelocytes, myelocytes, and promyelocytes. Blood smears from CBCs yielding IG's will be scanned manually for concordance. If this scan disagrees with the automated IG or if promyelocytes are noted, a manual differential will be performed. Immature Gran Absolute 0.03 0.00 - 0.04 x10(3)/mc L [facility] Blood specimen (specimen) 05/19/2020 10:25 AM EST 05/19/2020 10:41 AM EST Narrative Resulting Agency Comment Spec In Lab Molly Cui OVEN EQUIPMENT REPAIRER HEMATOLOGY ORDERAB LES [facility] [place] [address] * (ABNORMAL) Hemogram (05/19/2020 10:25 AM EST) White Blood Cell 9.8(H) 4.0 - 9.5 x10(3)/mc L [facility] Red Blood Cell 4.65 4.00 - 5.21 x10(6)/mc L [facility] Hemoglobin 14.1 11.7 - 15.5 gm/dL [facility] Hematocrit 42.8 35.7 - 45.8 % [facility] Mean Cell Volume 92.0 82.6 - 94.4 fL [facility] Mean Cell Hemoglobin 30.3 27.1 - 32.0 pg [facility] Mean Cell Hemoglobin Concentration 32.9 31.7 - 35.0 gm/dL [facility] Platelet 130(L) 145 - 357 x10(3)/ L [facility] RDW Standard Deviation 43.8 37.0 - 46.0 [facility] RDW coefficient of variation 12.9 11.5 - 14.1 % [facility] Mean Platelet Volume 11.8 7.6 - 12.9 fL [facility] NRBC% auto 0.0 % [facility] NRBC Absolute 0.000 0.000 - 0.000 x10(3)/ L [facility] Blood specimen (specimen) 05/19/2020 10:25 AM EST 05/19/2020 10:41 AM EST Narrative Resulting Agency Comment Spec In Lab Molly Cui APRN HEMATOLOGY ORDERAB LES [facility] [place] [address] * (ABNORMAL) Comprehensive metabolic panel (non-fasting) (05/19/2020 10:25 AM EST) Glucose 112 65 - 199 mg/dL [facility] Comment:Diabetes: >=200 mg/d L plus symptoms Blood Urea Nitrogen 24(H) 8 - 18 mg/dL [facility] Creatinine 0.78 0.70 - 1.20 mg/dL [facility] Sodium 140 135 - 145 mmol/L [facility] Potassium 4.4 3.5 - 5.0 mmol/L [facility] [...] 15 mmol/L [facility] Calcium 10.8(H) 8.5 - 10.5 mg/dL [facility] Protein, Total 7.8 6.1 - 8.0 gm/dL [facility] Albumin 4.7 3.2 - 5.2 gm/dL [facility] Aspartate Aminotransferase 23 0 - 30 unit/L [facility] Alanine Aminotransferase 26 0 - 30 unit/L [facility] Alkaline Phosphatase 94 35 - 105 unit/L [facility] Bilirubin, Total 0.7 0.2 - 1.3 mg/dL [facility] Est Glomerular Filtration Rate 73 >=60 mL/min/1. 73 m?? [facility] Comment: This patient? s [...] APRN CHEMISTRY ORDERABL ES Performing Organization Address [facility] de Phone Number [facility] [place] [address] * Prothrombin Time (05/19/2020 10:25 AM EST) Prothrombin Time 12.4 9.4 - 12.5 sec [facility] [...] APRN HEMATOLOGY ORDERAB LES Performing Organization Address [facility] de Phone Number [facility] [place] [address] documented in this encounter Visit Diagnoses Diagnosis Hepatic cirrhosis, unspecified hepatic cirrhosis type, unspecified whether ascites present documented in this encounter Care Teams Ict Account Manager Relationship Specialty Start Date End Date Salome Mcarthur APRN [address] [place] [address] PCP - General Family Medicine 05/30/15 12/11/23 documented as of this encounter
--- OUTSIDE RECORDS SUMMARY | 2024-05-18 16:57 | XMS_ITS | Encounter Summary ---
Author Organization [facility] Address [facility] [place] [address] Care Team Providers Care Cargo Mate Name Role Phone Salome Mcarthur APRN Primary Care Provider [phone] Encounter Details Date Type Department Care Team (Late st Contact Info) Description 12/05/2022 1:30 PM EDT Office [place] [address] Lani Wallis APRN [facility] [place] [address] Hepatic cirrhosis, unspecified hepatic cirrhosis type, unspecified [...] Wallis APRN Section of [place] [address] Copy: Salome Mcarthur APRN [address] / [place] [address] Time spent reviewing records prior to this [...] Prothrombin Time 12.2 9.4 - 12.5 sec [place] [place] [place] Lab Lani Wallis APRN HEMATOLOGY ORDERAB LES [facility] [place] [address] * (ABNORMAL) Comprehensive metabolic panel (non-fasting) (08/08/2023 12:19 PM EDT) Glucose 110 65 - 199 mg/dL [facility] Comment:Diabetes: >=200 mg/d L plus symptoms Blood Urea Nitrogen 19(H) 8 - 18 mg/dL [facility] Creatinine 0.72 0.70 - 1.20 mg/dL [facility] Sodium 144 135 - 145 mmol/L [facility] Potassium 4.1 3.5 - 5.0 mmol/L [facility] Anion Gap 15 5 - 15 mmol/L [facility] Calcium 10.0 8.5 - 10.5 mg/dL [facility] Protein, Total 7.0 6.1 - 8.0 g/dL [facility] Albumin 4.2 3.2 - 5.2 g/dL [facility] Aspartate Aminotransferase 34(H) 0 - 30 unit/L [facility] Alanine Aminotransferase 33(H) 0 - 30 unit/L [facility] Alkaline Phosphatase 121(H) 35 - 105 unit/L [facility] Bilirubin, Total 0.5 0.2 - 1.3 mg/dL [facility] Est Glomerular Filtration Rate 83 >=60 mL/min/1. 73 m?? [place] [...] Lab Lani Wallis APRN CHEMISTRY ORDERABL ES [facility] [place] [address] * US Abdomen Limited Hepatology Protocol (08/08/2023 11:45 AM EDT) WORKSTATION ID [id number] DH RAD Anatomical Region Laterality Modality Abdomen Ultrasound [...] who have questions, please contact the health healthcare sales representative that requested your imaging first. ?Alisha Grove, Staff Physician Electronically Signed Final Report ?? 08/08/2023 01:31 pm Narrative 08/08/2023 1:32 PM EDT Abdominal ? (Signed Final 08/08/2023 01:31 pm) PATIENT INFO: ID #: ? [id number] ?: ??[birth year] (83 yrs)(F) Name: ? NICK MENDIETA ?Visit Date: 08/08/2023 11:27 am PERFORMED BY: Attending: ?Perfecto GALLO, Alisha Carpio Resident: ? Stevie GALLO, antonio Performed By: ? Ayaka Biswas RDMS Referred By: ?LANI WALLIS Location: ? [place] SERVICE(S) PROVIDED: [facility] - Hepatology Protocol - Abdominal ?76383 Limited Survey Single Organ or Quadrant - [id number] INDICATIONS: cirrhosis, screen for hcc, splenomegaly ------ [...] 08/08/2023 01:31 pm) PATIENT INFO: ID #: [id number] : 42 (83 yrs)(F) Name: NICK MENDIETA Visit Date: 08/08/2023 11:27 am PERFORMED BY: Attending: Alisha Grove MD Resident: Mode Hubbard MD Performed By: Ayaka Biswas RDMS Referred By: LANI WALLIS Location: [place] [facility] - Hepatology Protocol - Abdominal [id number] Limited Survey Single Organ or Quadrant - [id number] INDICATIONS: cirrhosis, screen for hcc, splenomegaly ------ [...] who have questions, please contact the health healthcare sales representative that requested your imaging first. Alisha Grove, Staff Physician Electronically Signed Final Report 08/08/2023 01:31 pm Lani Wallis APRN IMG GEN ORDERAB LES documented in this encounter Visit Diagnoses Diagnosis Hepatic cirrhosis, unspecified hepatic cirrhosis type, unspecified whether ascites present Hepatic cirrhosis, unspecified hepatic cirrhosis type, unspecified whether ascites present documented in this encounter Care Teams Cargo Mate Relationship Specialty Start Date End Date Salome Mcarthur APRN [address] [place] [address] PCP - General Family Medicine 05/30/15 12/11/23 documented as of this encounter
--- OUTSIDE RECORDS SUMMARY | 2024-05-18 16:57 | XMS_ITS | Encounter Summary ---
Author Organization [facility] Address [facility] [place] [address] Care Team Providers Care Ice Seller Name Role Phone Salome Mcarthur APRN Primary Care Provider [phone] Encounter Details Date Type Department Care Team (Late st Contact Info) Description 05/26/2020 Telephone Gastroenterology at [facility] [place] [phone] Sandra Aguilar Social History Tobacco Use Types [...] - 05/26/2020 10:27 AM EST Milka Corbett [id number] Diagnosis/Indication: cirrhosis, screen for varices. small varices [...] on filedocumented in this encounter Care Teams Ice Seller Relationship Specialty Start Date End Date Salome Mcarthur APRN [address] [place] [address] PCP - General Family Medicine 05/30/15 12/11/23 documented as of this encounter
--- OUTSIDE RECORDS SUMMARY | 2024-05-18 16:57 | XMS_ITS | Encounter Summary ---
Author Organization [facility] Address [facility] [place] [address] Care Team Providers Care Table Games Dealer Name Role Phone Salome Mcarthur APRN Primary Care Provider [phone] Encounter Details Date Type Department Care Team (Late st Contact Info) Description 01/08/2022 Telephone [place] [phone] Светлана Henry Social History Tobacco Use Types [...] calls can be handled by: Any procedure machine operations supervisor documented in this encounter Plan of Treatment Not on file documented as of this encounter Visit Diagnoses Not on filedocumented in this encounter Care Teams Table Games Dealer Relationship Specialty Start Date End Date Salome Mcarthur APRN [address] [place] [address] PCP - General Family Medicine 05/30/15 12/11/23 documented as of this encounter
--- OUTSIDE RECORDS SUMMARY | 2024-05-18 16:57 | XMS_ITS | Encounter Summary ---
Author Organization [facility] [place] [address] Care Team Providers Care Brass Bobbin Winder Name Role Phone Salome Mcarthur APRN Primary Care Provider [phone] Encounter Details Date Type Department Care Team (Latest Contact Info) Description 06/06/2022 12:30 PM EST Laboratory Appointment Lab [address] [place] [phone] Hepatic cirrhosis, unspecified hepatic cirrhosis type, unspecified [...] present HC CBC,PLT & AUTO DIFF Routine 3 12:46 PM EST Hepatic cirrhosis, unspecified hepatic cirrhosis type, unspecified whether ascites present COMPREHENSIVE METABOLIC PANEL Routine 06/06/2022 12:46 PM EST Hepatic cirrhosis, unspecified hepatic cirrhosis type, unspecified whether ascites present documented in this encounter Results * Differential, Automated (06/06/2022 12:46 PM EST) Neutrophil % 55.9 % [facility] Neutrophil Absolute 3.25 1.70 - 6.10 x10(3)/[facility] Lymph % 30.1 % [facility] Lymphocytes Abs 1.8 0.9 - 3.2 x10(3)/[facility] Monocyte % 11.4 % [facility] Monocyte Abs 0.7 0.3 - 0.9 x10(3)/[facility] Eos % 1.9 % [facility] Eosinophils Abs 0.1 0.0 - 0.4 x10(3)/[facility] Basophil % 0.5 % [facility] Baso Absolute 0.0 0.0 - 0.1 x10(3)/[facility] Immature Gran % 0.20 % [facility] Comment: Immature granulocytes(IG's)percentage and absolute count will include metamyelocytes, myelocytes, and promyelocytes. Blood smears from CBCs yielding IG's will be scanned manually for concordance. If this scan disagrees with the automated IG or if promyelocytes are noted, a manual differential will be performed. Immature Gran Absolute 0.01 0.00 - 0.04 x10(3)/[facility] Blood 06/06/2022 12:4 6 PM EST 06/06/2022 12:49 PM EST Narrative Resulting Agency Comment Spec In Lab Molly Cui APRN HEMATOLOGY ORDERAB LES [facility] [place] [address] * (ABNORMAL) Hemogram (06/06/2022 12:46 PM EST) White Blood Cell 5.8 4.0 - 9.5 x10(3)/[facility] Red Blood Cell 4.22 4.00 - 5.21 x10(6)/[facility] Hemoglobin 12.7 11.7 - 15.5 g/dL [facility] Hematocrit 38.7 35.7 - 45.8 % [facility] Mean Cell Volume 91.7 82.6 - 94.4 fL [facility] Mean Cell Hemoglobin 30.1 27.1 - 32.0 pg [facility] Mean Cell Hemoglobin Concentration 32.8 31.7 - 35.0 g/dL [facility] Platelet 85(L) 145 - 357 x10(3)/[facility] RDW Standard Deviation 45.1 37.0 - 46.0 fL [facility] RDW coefficient of variation 13.3 11.5 - 14.1 % [facility] Mean Platelet Volume 11.2 7.6 - 12.9 fL [facility] NRBC% auto 0.0 % [facility] NRBC Absolute 0.000 0.000 - 0.000 x10(3)/[facility] Blood 06/06/2022 12:4 6 PM EST 06/06/2022 12:49 PM EST Narrative Resulting Agency Comment Spec In Lab Molly Cui APRN HEMATOLOGY ORDERAB LES Performing Organization Address City/State/[facility] Co de Phone Number [facility] [place] [address] * (ABNORMAL) Comprehensive metabolic panel (non-fasting) (06/06/2022 12:46 PM EST) Glucose 107 65 - 199 mg/dL [facility] Comment:Diabetes: >=200 mg/d L plus symptoms Blood Urea Nitrogen 15 8 - 18 mg/dL [facility] Creatinine 0.66(L) 0.70 - 1.20 mg/dL [facility] Sodium 141 135 - 145 mmol/L [facility] Potassium 4.2 3.5 - 5.0 mmol/L [facility] Comment: Please note: ??Patients with WBC >100,000 may have falsely elevated Potassium levels. ??For accurate Potassium quantification in these patients send serum separator tube (gold top) for subsequent determinations. ??Contact the Clinical Chemistry Laboratory if there are any questions. Chloride 104 98 - 107 mmol/L [facility] Carbon Dioxide 27 22 - 31 mmol/L [facility] Anion Gap 10 5 - 15 mmol/L [facility] Calcium 10.4 8.5 - 10.5 mg/dL [facility] Protein, Total 6.9 6.1 - 8.0 g/dL [facility] Albumin 4.3 3.2 - 5.2 g/dL [facility] Aspartate Aminotransferase 33(H) 0 - 30 unit/L [facility] Alanine Aminotransferase 34(H) 0 - 30 unit/L [facility] Alkaline Phosphatase 98 35 - 105 unit/L [facility] Bilirubin, Total 0.6 0.2 - 1.3 mg/dL [facility] Est Glomerular Filtration Rate 89 >=60 mL/min/1. 73 m?? [facility] Comment: This patient's estimated GFR was [...] Lab Molly Cui APRN CHEMISTRY ORDERABL ES [facility] [place] [address] * (ABNORMAL) Prothrombin Time (06/06/2022 12:46 PM EST) Prothrombin Time 12.9(H) 9.4 - 12.5 sec [facility] International Normalization Ratio 1.1 [facility] Comment: An INR <2.0 indicates adequate [...] Agency Comment Spec In Lab Molly Cui LASER/ELECTRO OPTICS TECHNICIAN HEMATOLOGY ORDERAB LES Performing Organization Address City/State/[facility] Co de Phone Number [facility] [place] [address] documented in this encounter Visit Diagnoses Diagnosis Hepatic cirrhosis, unspecified hepatic cirrhosis type, unspecified whether ascites present documented in this encounter Care Teams Brass Bobbin Winder Relationship Specialty Start Date End Date Salome Mcarthur APRN [address] [place] [address] PCP - General Family Medicine 05/30/15 12/11/23 documented as of this encounter
--- OUTSIDE RECORDS SUMMARY | 2024-05-18 16:57 | XMS_ITS | Encounter Summary ---
Author Organization [facility] Address [facility] [place] [address] Care Team Providers Care Sql Data Architect Name Role Phone Salome Mcarthur APRN Primary Care Provider [phone] Encounter Details Date Type Department Care Team (Latest Contact Info) Description 11/29/2021 9:45 AM EDT - 11/29/2021 11:59 PM EDT Hospital [place] [phone] Molly Wallis [facility] [place] [address] Hepatic cirrhosis, unspecified hepatic cirrhosis type, unspecified [...] directed. 05/02/2020 fluticasone propionate (FLONASE) 50 mcg/actuation [place], Suspension 1 spray daily. pramipexole (MIRAPEX) 0.125 [...] tablet Take 1 tablet by mouth daily. fluconazole (Diflucan) 100 mg Tablet TAKE 2 [...] Keith MD, [facility] ([phone]), at 11/29/2021 10:23 AM Thank you for letting us participate in the care of this patient. If you are a health care provider and have any questions regarding this report, please contact the number above. For patients who have questions, please contact the health lpn care manager that requested your imaging first. ?Avila Keith, Staff Physician Electronically Signed Final Report ?? 11/29/2021 10:30 am Narrative 11/29/2021 10:30 AM EDT Abdominal ? (Signed Final 11/29/2021 10:30 am) PATIENT INFO: ID #: ? [id number] ?: ??[birth year] (81 yrs)(F) Name: ? MILKA MENDIETA ?Visit Date: 11/29/2021 10:17 am PERFORMED BY: Performed By: ? Dea Mata RDMS Attending: ?Avila Keith MD Referred By: ?MOLLY WALLIS Secondary Phy.: ?? [facility] Location: ? [place] SERVICE(S) PROVIDED: [facility] - Hepatology Protocol - Abdominal ?[id number] Limited Survey Single Organ or Quadrant - [id number] INDICATIONS: cirrhosis, screen for hcc COMPARISON: US: [...] 11/29/2021 10:30 am) PATIENT INFO: ID #: [id number] : 42 (81 yrs)(F) Name: MILKA MENDIETA Visit Date: 11/29/2021 10:17 am PERFORMED BY: Performed By: Dea Mata RDMS Attending: Avila Keith MD Referred By: MOLLY WALLIS [facility] Phy.: MOLLY WALLIS APRN Location: [place] [facility] - Hepatology Protocol - Abdominal 57631 Limited Survey Single Organ or Quadrant - [id number] INDICATIONS: cirrhosis, screen for hcc COMPARISON: US: [...] Keith MD, [facility] ([phone]), at 11/29/2021 10:23 AM Thank you for letting us participate in the care of this patient. If you are a health care provider and have any questions regarding this report, please contact the number above. For patients who have questions, please contact the health lpn care manager that requested your imaging first. Avila Keith, Staff Physician Electronically Signed Final Report 11/29/2021 10:30 am Molly Wallis APRN IMG US GEN ORDERAB LES documented in this encounter Visit Diagnoses Diagnosis Hepatic cirrhosis, unspecified hepatic cirrhosis type, unspecified whether ascites present documented in this encounter Care Teams Sql Data Architect Relationship Specialty Start Date End Date Salome Mcarthur APRN [address] [place] [address] PCP - General Family Medicine 05/30/15 12/11/23 documented as of this encounter
--- OUTSIDE RECORDS SUMMARY | 2024-05-18 16:57 | XMS_ITS | Encounter Summary ---
Author Organization [facility] [place] [address] Care Team Providers Care Associate Financial Planner Name Role Phone Salome Mcarthur APRN Primary Care Provider [phone] Encounter Details Date Type Department Care Team [...] on filedocumented in this encounter Care Teams Associate Financial Planner Relationship Specialty Start Date End Date Salome Mcarthur, LORETO [address] [place] [address] PCP - General Family Medicine 05/30/15 12/11/23 documented as of this encounter
--- OUTSIDE RECORDS SUMMARY | 2024-05-18 16:57 | XMS_ITS | Encounter Summary ---
Author Organization [facility] Address [facility] [place] [address] Care Team Providers Care Dynamite Cartridge Crimper Name Role Phone Salome Mcarthur APRN Primary Care Provider [phone] Reason for Visit * Auth/Cert Specialty Diagnoses / Procedures Referred By Jose bermudez Referred To Contact Diagnoses cirrhosis with varices, reassess. EGD ordered 05/2021 but not scheduled yet, new order with higher urgency placed. Procedures PRO UPPER GI ENDOSCOPY, DIAGNOSTIC EGD, UPPER GI ENDOSCOPY Ml Ayala MD [facility] [place] [address] [facility] Referral ID Status Reason Start Date Expiration Date Visits Re quested Visits Authorized [id number] 1 1 Encounter Details Date Type Department Care Team (Late st Contact Info) Description 01/31/2022 11:30 AM EDT - 01/31/2022 12:00 PM EDT Surgery [place] [address] Leland Ramos MD [facility] [address] EGD, UPPER GI ENDOSCOPY (WRVU 2.09) Social [...] the day after the procedure, use an ffda-vns-jzutmgz spray to numb your throat. Sucking on [...] occurs, please contact your Doctor. Please call [phone] before 8pm Mon-Fri with problems, questions or concerns. If you call after 8pm or on weekends, call the Hospital at [phone] and ask to speak to the Journalism Instructor art sales consultant and the doper operator will contact that person for you. When should you call for help? Call [phone] anytime you think you may need emergency [...] any problems. Where can you learn more? [facility] View your After Visit Summary and more online at [email or web address] If you would like to [...] cost to you. Content Version: 12.2 ?? [id number] [employer]. Care instructions adapted under license by [facility]. If you have questions about a medical condition or this instruction, always ask your healthcare professional. [employer] disclaims any warranty or liability for your [...] directed. 05/02/2020 fluticasone propionate (FLONASE) 50 mcg/actuation [place], Suspension 1 spray daily. pramipexole (MIRAPEX) 0.125 [...] Associated Diagnosis Comments Upper GI Endoscopy, Diagnostic (99538) 01/31/2022 11:11 AM EDT Hepatic cirrhosis, unspecified hepatic cirrhosis type, unspecified whether ascites present POCT GLUCOSE Routine 01/31/2022 10:51 AM EDT UPPER GI ENDOSCOPY Routine 01/31/2022 10 :36 AM EDT documented in this encounter Results * POCT Glucose (01/31/2022 10:51 AM EDT) Glucose, POC 123 65 - 199 mg/dL [facility] Comment: Supplemental ranges: <140 mg/dL before meals <180 mg/dL all other times of the day Blood 01/31/2022 10:5 1 AM EDT 01/31/2022 10:51 AM EDT Leland Ramos MD POINT OF CARE TEST O RDERABLES [facility] [place] [address] * UPPER GI ENDOSCOPY (01/31/2022 10:36 AM EDT) Pathologist [facility] UPPER GI ENDOSCOPY [facility] Endoscopy Procedure Date: 01/31/2022 10:36 AM ? Patient Name: Milka Corbett ? Date of : 1940 ? Age: 81 ? Order #: [id number] ? Instrument Name: [id number] ? Procedure: ? Upper GI endoscopy Indications: [...] ? physician, the nurse and the ? lab support technician in the pre-procedure ? area [...] RN) documented in this encounter Care Teams Dynamite Cartridge Crimper Relationship Specialty Start Date End Date Salome Mcarthur, JAIL OFFICER [address] [place] [address] PCP - General Family Medicine 05/30/15 12/11/23 documented as of this encounter
--- OUTSIDE RECORDS SUMMARY | 2024-05-18 16:57 | XMS_ITS | Encounter Summary ---
Author Organization [facility] Address [facility] [place] [address] Care Team Providers Care Padded Products Inspector Trimmer Name Role Phone Salome Mcarthur APRN Primary Care Provider [phone] Encounter Details Date Type Department Care Team (Late st Contact Info) Description 01/15/2022 Telephone [place] [phone] Kyle Gabriela Farzana Social History Tobacco Use Types Packs/Day Years [...] on filedocumented in this encounter Care Teams Padded Products Inspector Trimmer Relationship Specialty Start Date End Date Slaome Mcarthur APRN [address] [place] [address] PCP - General Family Medicine 05/30/15 12/11/23 documented as of this encounter
--- OUTSIDE RECORDS SUMMARY | 2024-05-18 16:57 | XMS_ITS | Encounter Summary ---
Author Organization [facility] Address [facility] [place] [address] Care Team Providers Care Nursery Laborer Name Role Phone Salome Mcarthur APRN Primary Care Provider [phone] Encounter Details Date Type Department Care Team (Late st Contact Info) Description 06/06/2022 2:30 PM EST Office [place] [phone] Molly Wallis APRN [facility] [place] [address] Hepatic cirrhosis, unspecified hepatic cirrhosis type, unspecified [...] Injector ??? fluticasone propionate (FLONASE) 50 mcg/actuation [place], Suspension 1 spray daily. ??? pramipexole (MIRAPEX) [...] Wallis APRN Section of Gastroenterology [place] [address] Copy: Salome Mcarthur APRN [address] / [place] [address] Time spent reviewing records prior to this [...] Prothrombin Time 13.2(H) 9.4 - 12.5 sec [facility] International Normalization Ratio 1.2 [facility] Comment: An INR <2.0 indicates adequate [...] Lab Molly Wallis APRN HEMATOLOGY ORDERAB LES [facility] [address] [place] [address] * (ABNORMAL) Comprehensive metabolic panel (non-fasting) (12/05/2022 12:22 PM EDT) Glucose 114 65 - 199 mg/dL [facility] Comment:Diabetes: >=200 mg/d L plus symptoms Blood Urea Nitrogen 17 8 - 18 mg/dL [facility] Creatinine 0.71 0.70 - 1.20 mg/dL [facility] Sodium 142 135 - 145 mmol/L [facility] Potassium 4.1 3.5 - 5.0 mmol/L [facility] Comment: Please note: ??Patients with WBC >100,000 may have falsely elevated Potassium levels. ??For accurate Potassium quantification in these patients send serum separator tube (gold top) for subsequent determinations. ??Contact the Clinical Chemistry Laboratory if there are any questions. Chloride 105 98 - 107 mmol/L [facility] Carbon Dioxide 28 22 - 31 mmol/L [facility] Anion Gap 9 5 - 15 mmol/L [facility] Calcium 9.7 8.5 - 10.5 mg/dL [facility] Protein, Total 7.0 6.1 - 8.0 g/dL [facility] Albumin 4.2 3.2 - 5.2 g/dL [facility] Aspartate Aminotransferase 33(H) 0 - 30 unit/L [facility] Alanine Aminotransferase 32(H) 0 - 30 unit/L [facility] Alkaline Phosphatase 136(H) 35 - 105 unit/L [facility] Bilirubin, Total 0.6 0.2 - 1.3 mg/dL [facility] Est Glomerular Filtration Rate 85 >=60 mL/min/1. 73 m?? [facility] Comment: This patient's estimated GFR was [...] Agency Comment Spec In Lab Molly Wallis EXTRUSION PRESS OPERATOR CHEMISTRY ORDERABL ES [facility] [place] [address] * US Abdomen Limited Hepatology Protocol (12/05/2022 [...] signed by: Avila Keith MD, [facility] ([phone]), at 12/05/2022 11:48 AM Thank you for letting us participate in the care of this patient. If you are a health care provider and have any questions regarding this report, please contact the number above. For patients who have questions, please contact the health toddler caregiver that requested your imaging first. ?Avila Keith, Staff Physician Electronically Signed Final Report ?? 12/05/2022 11:56 am Narrative 12/05/2022 11:57 AM EDT Abdominal ? (Signed Final 12/05/2022 11:56 am) PATIENT INFO: ID #: ? [id number] ?: ??[birth year] (82 yrs)(F) Name: ? MILKA MENDIETA ?Visit Date: 12/05/2022 11:36 am PERFORMED BY: Attending: ?Avila Keith MD Performed By: ? Sanjeev Marshall RDMS Referred By: ?MOLLY WALLIS Secondary Phy.: ?? MOLLY WALLIS EXTRUSION PRESS OPERATOR Location: ? [place] [facility] Protocol - Abdominal ?06643 Limited Survey Single Organ or Quadrant - [id number] INDICATIONS: cirrhosis, screen for hcc ------ LIVER: [...] 12/05/2022 11:56 am) PATIENT INFO: ID #: [id number] : [birth year] (82 yrs)(F) Name: MILKA MENDIETA Visit Date: 12/05/2022 11:36 am PERFORMED BY: Attending: Avila Keith MD Performed By: Sanjeev Marshall RDMS Referred By: MOLLY WALLIS Secondary Phy.: MOLLY WALLIS APRN Location: [place] [facility] - Hepatology Protocol - Abdominal 45090 Limited Survey Single Organ or Quadrant - [id number] INDICATIONS: cirrhosis, screen for hcc ------ LIVER: [...] signed by: Avila Keith MD, [facility] ([phone]), at 12/05/2022 11:48 AM Thank you for letting us participate in the care of this patient. If you are a health care provider and have any questions regarding this report, please contact the number above. For patients who have questions, please contact the health toddler caregiver that requested your imaging first. Avila Keith, Staff Physician Electronically Signed Final Report 12/05/2022 11:56 am Molly Wallis APRN IMG US GEN ORDERAB LES documented in this encounter Visit Diagnoses Diagnosis Hepatic cirrhosis, unspecified hepatic cirrhosis type, unspecified whether ascites present Hepatic cirrhosis, unspecified hepatic cirrhosis type, unspecified whether ascites present documented in this encounter Care Teams Nursery Laborer Relationship Specialty Start Date End Date Salome Mcarthur, EXTRUSION PRESS OPERATOR [address] [place] [address] PCP - General Family Medicine 05/30/15 12/11/23 documented as of this encounter
--- OUTSIDE RECORDS SUMMARY | 2024-05-18 16:57 | XMS_ITS | Encounter Summary ---
Author Organization [facility] Address [facility] [place] [address] Care Team Providers Care Outside Sales Account Manager Name Role Phone Salome Mcarthur APRN Primary Care Provider [phone] Encounter Details Date Type Department Care Team (Late st Contact Info) Description 11/29/2021 1:00 PM EDT Office [place] [address] Molly Wallis APRN [facility] [place] [address] Hepatic cirrhosis, unspecified hepatic cirrhosis type, unspecified [...] documented in this encounter Progress Notes * ScioMolly mock APRN - 11/29/2021 1:00 PM EDT [...] daily. ??? fluticasone propionate (FLONASE) 50 mcg/actuation [place], Suspension 1 spray daily. ??? pramipexole (MIRAPEX) [...] ?? Electronically signed by: Avila Keith MD, [facility] ([phone]), at 11/29/2021 10:23 AM ?? ASSESSMENT/PLAN Milka [...] Wallis APRN Section of Gastroenterology [place] [address] Copy: Salome Mcarthur APRN [address] / [place] [address] Time spent reviewing records prior to this [...] Prothrombin Time 12.9(H) 9.4 - 12.5 sec [facility] International Normalization Ratio 1.1 [facility] Comment: An INR <2.0 [...] Lab Molly Wallis APRN HEMATOLOGY ORDERAB LES [facility] [address] [place] [address] * (ABNORMAL) Comprehensive metabolic panel (non-fasting) (06/06/2022 12:46 PM EST) Glucose 107 65 - 199 mg/dL [facility] Comment:Diabetes: >=200 mg/d L plus symptoms Blood Urea Nitrogen 15 8 - 18 mg/dL [facility] Creatinine 0.66(L) 0.70 - 1.20 mg/dL [facility] Sodium 141 135 - 145 mmol/L [facility] Potassium 4.2 3.5 - 5.0 mmol/L [facility] Comment: Please note: ??Patients with WBC >100,000 may have falsely elevated Potassium levels. ??For accurate Potassium quantification in these patients send serum separator tube (gold top) for subsequent determinations. ??Contact the Clinical Chemistry Laboratory if there are any questions. Chloride 104 98 - 107 mmol/L [facility] Carbon Dioxide 27 22 - 31 mmol/L [facility] Anion Gap 10 5 - 15 mmol/L [facility] Calcium 10.4 8.5 - 10.5 mg/dL [facility] Protein, Total 6.9 6.1 - 8.0 g/dL [facility] Albumin 4.3 3.2 - 5.2 g/dL [facility] Aspartate Aminotransferase 33(H) 0 - 30 unit/L [facility] Alanine Aminotransferase 34(H) 0 - 30 unit/L [facility] Alkaline Phosphatase 98 35 - 105 unit/L [facility] Bilirubin, Total 0.6 0.2 - 1.3 mg/dL [facility] Est Glomerular Filtration Rate 89 >=60 mL/min/1. 73 m?? [facility] Comment: This patient's estimated [...] Narrative Resulting Agency Comment Spec In Lab oMlly Wallis BELT FIXER CHEMISTRY ORDERABL ES [facility] [place] [address] * US Abdomen Limited Hepatology Protocol (06/06/2022 [...] signed by: Avila Keith MD, [facility] ([phone]), at 06/06/2022 11:48 AM Thank you for letting us participate in the care of this patient. If you are a health care provider and have any questions regarding this report, please contact the number above. For patients who have questions, please contact the health care companion that requested your imaging first. ? Avila Keith, Staff Physician Electronically Signed Final Report ?? 06/06/2022 11:54 am Narrative 06/06/2022 11:55 AM EST Abdominal ? (Signed Final 06/06/2022 11:54 am) PATIENT INFO: ID #: ? [id number] ?: ??[birth year] (81 yrs)(F) Name: ? MILKA MENDIETA ?Visit Date: 06/06/2022 11:20 am PERFORMED BY: Attending: ?Avila Keith MD Performed By: ? Sosa Joshi RDMS Referred By: ?MOLLY WALLIS Secondary Phy.: ?? MOLLY WALLIS BELT FIXER Location: ? [place] [facility] Hep[facility] Protocol - Abdominal ?36635 Limited Survey Single Organ or Quadrant - [id number] INDICATIONS: cirrhosis, screen for hcc ------ LIVER: [...] 06/06/2022 11:54 am) PATIENT INFO: ID #: [id number] : [birth year] (81 yrs)(F) Name: MILKA MENDIETA Visit Date: 06/06/2022 11:20 am PERFORMED BY: Attending: Avila Keith MD Performed By: Sosa Joshi RDMS Referred By: MOLLY WALLIS [facility] Phy.: MOLLY WALLIS APRN Location: [place] SERVICE(S) PROVIDED: [facility] - Hepatology Protocol - Abdominal 14524 Limited Survey Single Organ or Quadrant - [id number] INDICATIONS: cirrhosis, screen for hcc ------ LIVER: [...] signed by: Avila Keith MD, [facility] ([phone]), at 06/06/2022 11:48 AM Thank you for letting us participate in the care of this patient. If you are a health care provider and have any questions regarding this report, please contact the number above. For patients who have questions, please contact the health care companion that requested your imaging first. Avila Keith, Staff Physician Electronically Signed Final Report 06/06/2022 11:54 am Molly Wallsi APRN [facility] GEN ORDERAB LES documented in this encounter Visit Diagnoses Diagnosis Hepatic cirrhosis, unspecified hepatic cirrhosis type, unspecified whether ascites present Hepatic cirrhosis, unspecified hepatic cirrhosis type, unspecified whether ascites present documented in this encounter Care Teams Outside Sales Account Manager Relationship Specialty Start Date End Date Salome Mcarthur APRN [address] [place], [place] [address] PCP - General Family Medicine 05/30/15 12/11/23 documented as of this encounter
--- OUTSIDE RECORDS SUMMARY | 2024-05-18 16:57 | XMS_ITS | Encounter Summary ---
Author Organization [facility] Address [facility] [place] [address] Care Team Providers Care Florist Supplies Salesperson Name Role Phone Salome Mcarthur APRN Primary Care Provider [phone] Reason for Visit * Auth/Cert Specialty Diagnoses / Procedures Referred By Jose bermudez Referred To Contact Diagnoses cirrhosis with varices, reassess. EGD ordered 05/2021 but not scheduled yet, new order with higher urgency placed. Procedures PRO UPPER GI ENDOSCOPY, DIAGNOSTIC EGD, UPPER GI ENDOSCOPY Ml Ayala MD [facility] [place] [address] [facility] Referral ID Status Reason Start Date Expiration Date Visits Re quested Visits Authorized [id number] 1 1 Encounter Details Date Type Department Care Team (Latest Contact Info) Description 01/31/2022 10:28 AM EDT - 01/31/2022 1:41 PM EDT Hospital Encounter [place] [address] Leland Ramos MD [facility] [place] [address] Discharge Disposition: Home Social History Tobacco Use [...] the day after the procedure, use an ddwu-vqp-zvqmneq spray to numb your throat. Sucking on [...] occurs, please contact your Doctor. Please call [phone] before 8pm Mon-Fri with problems, questions or concerns. If you call after 8pm or on weekends, call the Hospital at [phone] and ask to speak to the Educational Resource Center Teacher information systems analyst and the substation operator helper will contact that person for you. When should you call for help? Call [phone] anytime you think you may need emergency [...] After Visit Summary and more online at [email or web address] If you would like to provide feedback about your hospital experience, please call the Office of Patient and Family Relations at . If you have received this After Visit Summary in error, please immediately return it in person to the department, or notify the [facility] Privacy Office by calling toll free at between the hours of 8AM and 5PM to arrange for our retrieval of the documents at no cost to you. Content Version: 12.2 ?? [id number] [employer]. Care instructions adapted under license by [facility]. If you have questions about a medical condition or this instruction, always ask your healthcare professional. [email or web address] disclaims any warranty or liability for your [...] directed. 05/02/2020 fluticasone propionate (FLONASE) 50 mcg/actuation [place], Suspension 1 spray daily. pramipexole (MIRAPEX) 0.125 [...] Associated Diagnosis Comments Upper GI Endoscopy, Diagnostic (40453) 01/31/2022 11:11 AM EDT Hepatic cirrhosis, unspecified hepatic cirrhosis type, unspecified whether ascites present POCT GLUCOSE Routine 01/31/2022 10:51 AM EDT UPPER GI ENDOSCOPY Routine 01/31/2022 10 :36 AM EDT documented in this encounter Results * POCT Glucose (01/31/2022 10:51 AM EDT) Glucose, POC 123 65 - 199 mg/dL [facility] Comment: Supplemental ranges: <140 mg/dL before meals <180 mg/dL all other times of the day Blood 01/31/2022 10:5 1 AM EDT 01/31/2022 10:51 AM EDT Leland Ramos MD POINT OF CARE TEST O RDERABLES [facility] [place] [address] * UPPER GI ENDOSCOPY (01/31/2022 10:36 AM EDT) UPPER GI ENDOSCOPY [facility] Endoscopy Procedure Date: 01/31/2022 10:36 AM ? Patient Name: Milka Corbett ? Date of : 1940 ? Age: 81 ? Order #: [id number] ? Instrument Name: [id number] ? Procedure: ? Upper GI endoscopy Indications: [...] ? physician, the nurse and the ? control valve technician in the pre-procedure ? area in [...] performed the entire procedure. ? _ Leland Berg Rachel, 01/31/2022 12:38:07 PM Number of Addenda: 0 [...] RN) documented in this encounter Care Teams Florist Supplies Salesperson Relationship Specialty Start Date End Date Salome Mcarthur, ESTIMATOR PAPERBOARD BOXES [address] [place] [address] PCP - General Family Medicine 05/30/15 12/11/23 documented as of this encounter
--- OUTSIDE RECORDS SUMMARY | 2024-05-18 16:57 | XMS_ITS | Encounter Summary ---
Author Organization [facility] Address [facility] [place] [address] Care Team Providers Care Life Coach Name Role Phone Salome Mcarthur APRN Primary Care Provider [phone] Reason for Visit * Auth/Cert Specialty Diagnoses [...] Expiration Date Visits Re quested Visits Authorized [id number] 1 1 Encounter Details Date Type Department Care Team (Latest Contact Info) Description 09/26/2020 12:50 PM EDT - 09/26/2020 3:53 PM EDT Hospital En[place] [address] Jean Claude Chacon MD [facility] [place] [address] Hepatic cirrhosis Discharge Disposition: Home Social History [...] the day after the procedure, use an txji-hfq-acjbpxr spray to numb your throat. Sucking on [...] occurs, please contact your Doctor. Please call [phone] before 8pm Mon-Fri with problems, questions or concerns. If you call after 8pm or on weekends, call the Hospital at [phone] and ask to speak to the Buttonhole Tacker educational coordinator and the packaging machine operator will contact that person for you. When should you call for help? Call [phone] anytime you think you may need emergency [...] Summary and more online at [email or web address] If you would like to [...] cost to you. Content Version: 12.2 ?? 1082-3043 [employer]. Care instructions adapted under license by [facility]. If you have questions about a medical condition or this instruction, always ask your healthcare professional. [employer] disclaims any warranty or liability for your [...] directed. 05/02/2020 fluticasone propionate (FLONASE) 50 mcg/actuation [place], Suspension 1 spray daily. pramipexole (MIRAPEX) 0.125 [...] Operative Note Patient Name: Milka Corbett : [id number] MR#: [id number] Case Date: 09/26/2020 Surgeon: Surgeon(s) and Role: [...] UPPER GI ENDOSCOPY (09/26/2020 1:55 PM EDT) [facility] UPPER GI ENDOSCOPY [facility] Endoscopy Procedure Date: 09/26/2020 1:55 PM ? Patient Name: Milka Corbett ? Date of : 1940 ? Age: 80 ? Order #: [id number] ? Instrument Name: [id number] LOANER ? Procedure: ? Upper GI endoscopy [...] previous diet. ? - Return to liver [facility]. ? - Repeat upper endoscopy in 1 year ? for surveillance. ? Procedure Code(s): ?? --- Professional --- ? 98479, Esophagogastroduod enoscopy, ? flexible, transoral; diagnostic, ? including collection of specimen(s) ? by brushing or washing, when ? performed (separate procedure) Diagnosis Code(s): ?? --- Professional --- ? K29.70, Gastritis, unspecified, ? without bleeding ? 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 --- Technical --- ? K29.70, Gastritis, unspecified, ? without bleeding ? 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 All rights reserved. The codes documented in this report are preliminary and upon coder operator review may be revised to meet current compliance requirements. Attending Participation: ? I personally performed the entire procedure. ? Braulio Bailey, 09/26/2020 2:38:44 PM Number of Addenda: 0 Note Initiated On: 09/26/2020 1:55 PM PROVATION 09/26/2020 1:55 PM EDT Salome Mcarthur APRN GENERAL SURGICAL OR DERABLES Performing Organization Address [facility] de Phone Number PROVATION * POCT Glucose (09/26/2020 1:42 PM EDT) Glucose, POC 88 65 - 199 mg/dL [facility] Comment: Supplemental ranges: <140 mg/dL before meals <180 mg/dL all other times of the day Blood 09/26/2020 1:42 PM EDT 09/25/2020 12:00 PM EDT Jean Claude Chacon MD POINT OF CARE TEST O RDERABLES Performing Organization Address [facility] [place] [address] documented in this encounter Visit Diagnoses Diagnosis [...] (Intra-Procedure), Routine 1424 (Given - Provid er: Betariz Hammond RN)1427 (Given - Provider: Beatriz Hammond RN) midazolam (pf) (Versed) (1 mg/mL) multi-dose injection (CANCELED) ONCE PRN, Starting on Sat09/26/20 at 1424, Until Sat09/26/20 at 1753, Intra-Operative (Intra-Procedure), Routine 1424 (Given - Provid er: Beatriz Hammond RN)1427 (Given - Provider: Beatriz Hammond RN) documented in this encounter Care Teams Life Coach Relationship Specialty Start Date End Date Salome Mcarthur APRN [address] [place] [address] PCP - General Family Medicine 05/30/15 12/11/23 documented as of this encounter
--- OUTSIDE RECORDS SUMMARY | 2024-05-18 16:57 | XMS_ITS | Encounter Summary ---
Author Organization [facility] Address [facility] [place] [address] Care Team Providers Care Mainframe Systems Administrator Name Role Phone Salome Mcarthur APRN Primary Care Provider [phone] Reason for Visit * Auth/Cert Specialty Diagnoses [...] Expiration Date Visits Re quested Visits Authorized [id number] 1 1 Encounter Details Date Type Department Care Team (Late st Contact Info) Description 09/26/2020 2:30 PM EDT - 09/26/2020 3:00 PM EDT [place] [address] Braulio Bailey MD [facility] [place] [address] EGD, UPPER GI ENDOSCOPY (WRVU 2.09) Social [...] the day after the procedure, use an wsff-ssc-muuoiwp spray to numb your throat. Sucking on [...] occurs, please contact your Doctor. Please call [phone] before 8pm Mon-Fri with problems, questions or concerns. If you call after 8pm or on weekends, call the Hospital at [phone] and ask to speak to the Stone Mill Operator decoration checker and the typo machine operator will contact that person for you. When should you call for help? Call [phone] anytime you think you may need emergency [...] Where can you learn more? [facility]- View your After Visit Summary and more online at [email or web address] If you would like to provide [...] cost to you. Content Version: 12.2 ?? 2509-7327 [employer]. Care instructions adapted under license by [facility]. If you have questions about a medical condition or this instruction, always ask your healthcare professional. [employer] disclaims any warranty or liability for your [...] directed. 05/02/2020 fluticasone propionate (FLONASE) 50 mcg/actuation [place], Suspension 1 spray daily. pramipexole (MIRAPEX) 0.125 [...] Operative Note Patient Name: Milka Corbett : [id number] MR#: [id number] Case Date: 09/26/2020 Surgeon: Surgeon(s) and Role: [...] (09/26/2020 1:55 PM EDT) UPPER GI ENDOSCOPY [facility] Endoscopy Procedure Date: 09/26/2020 1:55 PM ? Patient Name: Milka Corbett ? N: [id number] ? Date of : 1940 ? Age: 80 ? Order #: [id number] ? Instrument Name: GIF-[id number] SANDRA ? Procedure: ? Upper GI endoscopy Indications: [...] Procedure Code(s): ?? --- Professional --- ? 18901, Esophagogastroduod enoscopy, ? flexible, transoral; diagnostic, ? including collection of specimen(s) ? by brushing or washing, when ? performed (separate procedure) Diagnosis Code(s): ?? --- Professional --- ? K29.70, Gastritis, unspecified, ? without bleeding ? 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 --- Technical --- ? K29.70, Gastritis, unspecified, ? without bleeding ? 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 All rights reserved. The codes documented in this report are preliminary and upon electrician apprentice powerhouse review may be revised to meet current compliance requirements. Attending Participation: ? I personally performed the entire procedure. ? Braulio Bailey, 09/26/2020 2:38:44 PM Number of Addenda: 0 Note Initiated On: 09/26/2020 1:55 PM PROVATION 09/26/2020 1:55 PM EDT Salome Mcarthur LOCATION MAN GENERAL SURGICAL OR DERABLES Performing Organization Address [facility] Co de Phone Number PROVATION * POCT Glucose (09/26/2020 1:42 PM EDT) Glucose, POC 88 65 - 199 mg/dL [facility] Comment: Supplemental ranges: <140 mg/dL before meals <180 mg/dL all other times of the day Blood 09/26/2020 1:42 PM EDT 09/25/2020 12:00 PM EDT Jean Claude Chacon MD POINT OF CARE TEST O RDERABLES [facility] [place] [address] documented in this encounter Visit Diagnoses Diagnosis [...] RN) documented in this encounter Care Teams Mainframe Systems Administrator Relationship Specialty Start Date End Date Salome Mcarthur APRN [address] [place] [address] PCP - General Family Medicine 05/30/15 12/11/23 documented as of this encounter
--- OUTSIDE RECORDS SUMMARY | 2024-05-18 16:57 | XMS_ITS | Encounter Summary ---
Author Organization [facility] Address [facility] [place] [address] Care Team Providers Care Sewing Machine Mechanic Name Role Phone Salome Mcarthur APRN Primary Care Provider [phone] Encounter Details Date Type Department Care Team (Late st Contact Info) Description 06/01/2021 12:00 PM EST Office Visit [place] [address] Lani Wallis APRN [facility] [place] [address] Hepatic cirrhosis, unspecified hepatic cirrhosis type, unspecified [...] in this encounter Progress Notes * Lani Walils APRN - 06/01/2021 12:00 PM EST Hepatology Follow Up Note Patient: Nick Mendieta Gender: female : 1940 Provider: Lani Wallis NP Referring Physician: Salome Mcarthur APRN HISTORY OF PRESENT ILLNESS Nick Mnedieta is a 80 y.o. year old female [...] daily. ??? fluticasone propionate (FLONASE) 50 mcg/actuation [place], Suspension 1 spray daily. ??? pramipexole (MIRAPEX) [...] Wallis APRN Section of Gastroenterology [place] [address] Copy: Salome Mcarthur APRN [address] / [place] [address] Time spent reviewing records prior to this [...] AM EDT) Alpha Fetoprotein 3.2 <=8.3 ng/mL [facility] Comment: This result was generated using a Janet Maylin immunoassay. ??Results obtained from other methods or manufacturers cannot be used interchangeably with this method. Blood 11/29/2021 11:0 4 AM EDT 11/29/2021 11:12 AM EDT Narrative Resulting Agency Comment Spec In Lab Lani Sharron Basilia [facility] CHEMISTRY ORDERABL ES Performing Organization Address [facility] de Phone Number [facility] [place] [address] * (ABNORMAL) Prothrombin Time (11/29/2021 11:04 AM EDT) Prothrombin Time 13.3(H) 9.4 - 12.5 sec [facility] International Normalization Ratio 1.2 [facility] Comment: An INR [...] Agency Comment Spec In Lab Lani Sharron Basilia [facility] HEMATOLOGY ORDERAB LES Performing Organization Address [facility] de Phone Number [facility] [place] [address] * (ABNORMAL) Comprehensive metabolic panel (non-fasting) (11/29/2021 11:04 AM EDT) Glucose 122 65 - 199 mg/dL [facility] Comment:Diabetes: >=200 mg/d L plus symptoms Blood Urea Nitrogen 18 8 - 18 mg/dL [facility] Creatinine 0.64(L) 0.70 - 1.20 mg/dL [facility] Sodium 140 135 - 145 mmol/L [facility] Potassium 4.2 3.5 - 5.0 mmol/L [facility] [...] 15 mmol/L [facility] Calcium 11.0(H) 8.5 - 10.5 mg/dL [facility] Protein, Total 7.4 6.1 - 8.0 g/dL [facility] Albumin 4.5 3.2 - 5.2 g/dL [facility] Aspartate Aminotransferase 32(H) 0 - 30 unit/L [facility] Alanine Aminotransferase 39(H) 0 - 30 unit/L [facility] Alkaline Phosphatase 100 35 - 105 unit/L [facility] Bilirubin, Total 0.9 0.2 - 1.3 mg/dL [facility] Est Glomerular Filtration Rate 89 >=60 mL/min/1. 73 m?? [facility] Comment: This patient's estimated [...] Lab Lani Wallis APRN CHEMISTRY ORDERABL ES [facility] [place] [address] * US Abdomen Limited Hepatology Protocol (11/29/2021 [...] ascites. Electronically signed by: Avila Keith MD, [facility] ([phone]), at 11/29/2021 10:23 AM Thank you for letting us participate in the care of this patient. If you are a health care provider and have any questions regarding this report, please contact the number above. For patients who have questions, please contact the health plant care worker that requested your imaging first. ?Avila Keith, Staff Physician Electronically Signed Final Report ?? 11/29/2021 10:30 am Narrative 11/29/2021 10:30 AM EDT Abdominal ? (Signed Final 11/29/2021 10:30 am) PATIENT INFO: ID #: ? [id number] ?: ??[birth year] (81 yrs)(F) Name: ? NICK MENDIETA ?Visit Date: 11/29/2021 10:17 am PERFORMED BY: Performed By: ? Dea Mata RDMS Attending: ?Avila Keith MD Referred By: ?LANI WALLIS Secondary Phy.: ?? LANI WALLIS GRAB OPERATOR Location: ? [place] SERVICE(S) PROVIDED: [facility] - Hepatology Protocol - Abdominal ?84783 Limited Survey Single Organ or Quadrant - [id number] INDICATIONS: cirrhosis, screen for hcc COMPARISON: US: [...] 11/29/2021 10:30 am) PATIENT INFO: ID #: [id number] : [birth year] (81 yrs)(F) Name: NICK MENDIETA Visit Date: 11/29/2021 10:17 am PERFORMED BY: Performed By: Dea Mata RDMS Attending: Avila Keith MD Referred By: LANI WALLIS Secondary Phy.: LANI WALLIS APRN Location: [place] SERVICE(S) PROVIDED: [facility] - Hepatology Protocol - Abdominal 27554 Limited Survey Single Organ or Quadrant - [id number] INDICATIONS: cirrhosis, screen for hcc COMPARISON: US: [...] ascites. Electronically signed by: Avila Keith MD, [facility] ([phone]), at 11/29/2021 10:23 AM Thank you for letting us participate in the care of this patient. If you are a health care provider and have any questions regarding this report, please contact the number above. For patients who have questions, please contact the health plant care worker that requested your imaging first. Avila Keith, Staff Physician Electronically Signed Final Report 11/29/2021 10:30 am Lani Wallis APRN IMG GEN ORDERAB LES documented in this encounter Visit Diagnoses Diagnosis Hepatic cirrhosis, unspecified hepatic cirrhosis type, unspecified whether ascites present Hepatic cirrhosis, unspecified hepatic cirrhosis type, unspecified whether ascites present documented in this encounter Care Teams Sewing Machine Mechanic Relationship Specialty Start Date End Date Salome Mcarthur APRN [address] [place] [address] PCP - General Family Medicine 05/30/15 12/11/23 documented as of this encounter
--- OUTSIDE RECORDS SUMMARY | 2024-05-18 16:57 | XMS_ITS | Encounter Summary ---
Author Organization [facility] [place] [address] Care Team Providers Care Academic Affairs Vice President Name Role Phone Salome Mcarthur APRN Primary Care Provider [phone] Encounter Details Date Type Department Care Team (Latest Contact Info) Description 11/29/2021 11:30 AM EDT Laboratory Appointment Lab [address] [place] [address] Hepatic cirrhosis, unspecified hepatic cirrhosis type, unspecified [...] hepatic cirrhosis type, unspecified whether ascites present CBC,PLT & AUTO DIFF Routine 11:04 AM EDT Hepatic cirrhosis, unspecified hepatic cirrhosis type, unspecified whether ascites present COMPREHENSIVE METABOLIC PANEL Routine 11/29/2021 11:04 AM EDT Hepatic cirrhosis, unspecified hepatic cirrhosis type, unspecified whether ascites present documented in this encounter Results * Differential, Automated (11/29/2021 11:04 AM EDT) Neutrophil % 65.7 % [facility] Neutrophil Absolute 5.57 1.70 - 6.10 x10(3)/[facility] Lymph % 21.4 % [facility] Lymphocytes Abs 1.8 0.9 - 3.2 x10(3)/[facility] Monocyte % 10.3 % [facility] Monocyte Abs 0.9 0.3 - 0.9 x10(3)/[facility] Eos % 1.9 % [facility] Eosinophils Abs 0.2 0.0 - 0.4 x10(3)/[facility] Basophil % 0.5 % [facility] Baso Absolute 0.0 0.0 - 0.1 x10(3)/[facility] Immature Gran % 0.20 % [facility] Comment: Immature granulocytes(IG's)percentage and absolute count will include metamyelocytes, myelocytes, and promyelocytes. Blood smears from CBCs yielding IG's will be scanned manually for concordance. If this scan disagrees with the automated IG or if promyelocytes are noted, a manual differential will be performed. Immature Gran Absolute 0.02 0.00 - 0.04 x10(3)/[facility] Blood 11/29/2021 11:0 4 AM EDT 11/29/2021 11:12 AM EDT Narrative Resulting Agency Comment Spec In Lab Molly Cui LETTUCE TRIMMER HEMATOLOGY ORDERAB LES [facility] [place] [address] * (ABNORMAL) Hemogram (11/29/2021 11:04 AM EDT) [facility] White Blood Cell 8.5 4.0 - 9.5 x10(3)/[facility] Red Blood Cell 4.44 4.00 - 5.21 x10(6)/[facility] Hemoglobin 13.6 11.7 - 15.5 g/dL [facility] Hematocrit 40.2 35.7 - 45.8 % [facility] Mean Cell Volume 90.5 82.6 - 94.[address] [facility] Mean Cell Hemoglobin 30.6 27.1 - 32.[address] [facility] Mean Cell Hemoglobin Concentration 33.8 31.7 - 35.0 g/dL [facility] Platelet 93(L) 145 - 357 x10(3)/[facility] RDW Standard Deviation 42.5 37.0 - 46.0 [facility] RDW coefficient of variation 12.9 11.5 - 14.1 % [facility] Mean Platelet Volume 11.8 7.6 - 12.[address] [facility] NRBC% auto 0.0 % [facility] NRBC Absolute 0.000 0.000 - 0.000 x10(3)/[facility] Blood 11/29/2021 11:0 4 AM EDT 11/29/2021 11:12 AM EDT Narrative Resulting Agency Comment Spec In Lab Molly Cui APRN HEMATOLOGY ORDERAB LES [facility] [address] * (ABNORMAL) Comprehensive metabolic panel (non-fasting) (11/29/2021 11:04 AM EDT) Glucose 122 65 - 199 mg/dL [facility] [...] mmol/L [facility] Anion Gap 12 5 - 15 mmol/L [facility] Calcium 11.0(H) 8.5 - 10.5 mg/dL [facility] Protein, Total 7.4 6.1 - 8.0 g/dL [facility] Albumin 4.5 3.2 - 5.2 g/dL [facility] Aspartate Aminotransferase 32(H) 0 - 30 unit/L [facility] Alanine Aminotransferase 39(H) 0 - 30 unit/L [facility] Alkaline Phosphatase 100 35 - 105 unit/L [facility] Bilirubin, Total 0.9 0.2 - 1.3 mg/dL [facility] Est Glomerular Filtration Rate 89 >=60 mL/min/1. 73 m?? [facility] Comment: This patient's [...] APRN CHEMISTRY ORDERABL ES Performing Organization Address [facility] de Phone Number [facility] [place] [address] * (ABNORMAL) Prothrombin Time (11/29/2021 11:04 AM EDT) Prothrombin Time 13.3(H) 9.4 - 12.[address] [facility] [...] APRN HEMATOLOGY ORDERAB LES Performing Organization Address [facility] Co de Phone Number [facility] [address] * AFP tumor marker (11/29/2021 11:04 AM EDT) Alpha Fetoprotein 3.2 <=8.3 ng/mL [facility] Comment: This result was generated using a Janet Maylin immunoassay. ??Results obtained from other methods or manufacturers cannot be used interchangeably with this method. Blood 11/29/2021 11:0 4 AM EDT 11/29/2021 11:12 AM EDT Narrative Resulting Agency Comment Spec In Lab Molly Cui APRN [place] [address] documented in this encounter Visit Diagnoses Diagnosis Hepatic cirrhosis, unspecified hepatic cirrhosis type, unspecified whether ascites present documented in this encounter Care Teams Academic Affairs Vice President Relationship Specialty Start Date End Date Salome Mcarthur APRN [address] [place] [address] PCP - General Family Medicine 05/30/15 12/11/23 documented as of this encounter
--- OUTSIDE RECORDS SUMMARY | 2024-05-18 16:57 | XMS_ITS | Encounter Summary ---
Author Organization [facility]ly [facility] Address [facility] [address] Care Team Providers Care Documentation Clerk Name Role Phone Salome Mcarthur APRN Primary Care Provider [phone] Encounter Details Date Type Department Care Team (Latest Contact Info) Description 06/01/2021 9:30 AM EST - 06/01/2021 11:59 PM [facility] Hospital Encounter [place] [phone] Molly Wallis ENTERPRISE ACCOUNT MANAGER [facility] [place] [address] Hepatic cirrhosis, unspecified hepatic cirrhosis type, unspecified [...] directed. 05/02/2020 fluticasone propionate (FLONASE) 50 mcg/actuation [place], Suspension 1 spray daily. pramipexole (MIRAPEX) 0.125 [...] tablet Take 1 tablet by mouth daily. lisinopril (PRINIVIL;ZESTRIL) 20 mg Tablet Take 20 [...] vein. Electronically signed by: Marilee Hernández MD, [facility] ([phone]), at 06/01/2021 9:55 AM Thank you for letting us participate in the care of this patient. If you are a health care provider and have any questions regarding this report, please contact the number above. For patients who have questions, please contact the health care director that requested your imaging first. ?Marilee Her, Staff Physician Electronically Signed Final Report ?? 06/01/2021 10:01 am Narrative 06/01/2021 10:02 AM EST Abdominal ? (Signed Final 06/01/2021 10:01 am) PATIENT INFO: ID #: ? [id number] ?: ??42 (80 yrs)(F) Name: ? MILKA MENDIETA ?Visit Date: 06/01/2021 09:47 am PERFORMED BY: Performed By: ? Lana Gotti RDMS Attending: ?Betty GALLO, Marilee Ragsdale Referred By: ?MOLLY WALLIS Secondary Phy.: ?? MOLLY WALLIS ENTERPRISE ACCOUNT MANAGER Location: ? [place] [facility]) [facility] Protocol - Abdominal ? 75474 Limited Survey Single Organ or Quadrant - [id number] INDICATIONS: cirrhosis, screen for hcc ------ LIVER: [...] 06/01/2021 10:01 am) PATIENT INFO: ID #: [id number] : 42 (80 yrs)(F) Name: MILKA MENDIETA Visit Date: 06/01/2021 09:47 am PERFORMED BY: Performed By: Lana Gotti RDMS Attending: Marilee Hernández MD Referred By: MOLLY WALLIS Secondary Phy.: MOLLY WALLIS APRN Location: [place] SERVICE(S) PROVIDED: [facility] - Hepatology Protocol - Abdominal 70245 Limited Survey Single Organ or Quadrant - [id number] INDICATIONS: cirrhosis, screen for hcc ------ LIVER: [...] vein. Electronically signed by: Marilee Hernández MD, [facility] ([phone]), at 06/01/2021 9:55 AM Thank you for letting us participate in the care of this patient. If you are a health care provider and have any questions regarding this report, please contact the number above. For patients who have questions, please contact the health care director that requested your imaging first. Marilee Her, Staff Physician Electronically Signed Final Report 06/01/2021 10:01 am Molly Wallis APRN [facility] GEN ORDERAB LES documented in this encounter Visit Diagnoses Diagnosis Hepatic cirrhosis, unspecified hepatic cirrhosis type, unspecified whether ascites present documented in this encounter Care Teams Documentation Clerk Relationship Specialty Start Date End Date Salome Mcarthur APRN [facility] [address] [place] [address] PCP - General Family Medicine 05/30/15 12/11/23 documented as of this encounter
--- OUTSIDE RECORDS SUMMARY | 2024-05-18 16:57 | XMS_ITS | Encounter Summary ---
Author Organization [facility] Address [facility] [place] [address] Care Team Providers Care Tester Food Products Name Role Phone Salome Mcarthur APRN Primary Care Provider [phone] Encounter Details Date Type Department Care Team (Late st Contact Info) Description 12/06/2020 2:00 PM EDT Office [place] [address] Molly Wallis APRN [facility] [place] [address] Hepatic cirrhosis, unspecified hepatic cirrhosis type, unspecified [...] daily. ??? fluticasone propionate (FLONASE) 50 mcg/actuation [place], Suspension 1 spray daily. ??? pramipexole (MIRAPEX) [...] mouth as needed. Reported on 08/21/2016 ??? [place]-3 Fatty Acids-Vitamin E (FISH OIL) 1,000 mg [...] Wallis APRN Section of Gastroenterology [place] [address] Copy: Salome Mcarthur APRN [address] / [place] [id number] Time spent reviewing records prior to this [...] Prothrombin Time 12.1 9.4 - 12.5 sec [facility] [...] APRN HEMATOLOGY ORDERAB LES [facility] [place] [address] * (ABNORMAL) Comprehensive metabolic panel (non-fasting) (06/01/2021 10:31 AM EST) Glucose 187 65 - 199 mg/dL [facility] Comment:Diabetes: >=200 mg/d L plus symptoms Blood Urea Nitrogen 16 8 - 18 mg/dL [facility] Creatinine 0.61(L) 0.70 - 1.20 mg/dL [facility] Sodium 139 135 - 145 mmol/L [facility] Potassium 4.3 3.5 - 5.0 mmol/L [facility] Comment: Please note: ??Patients with WBC >100,000 may have falsely elevated Potassium levels. ??For accurate Potassium quantification in these patients send serum separator tube (gold top) for subsequent determinations. ??Contact the Clinical Chemistry Laboratory if there are any questions. Chloride 102 98 - 107 mmol/L [facility] Carbon Dioxide 25 22 - 31 mmol/L [facility] Anion Gap 12 5 - 15 mmol/L [facility] Calcium 10.0 8.5 - 10.5 mg/dL [facility] Protein, Total 6.8 6.1 - 8.0 g/dL [facility] Albumin 4.3 3.2 - 5.2 g/dL [facility] Aspartate Aminotransferase 45(H) 0 - 30 unit/L [facility] Alanine Aminotransferase 60(H) 0 - 30 unit/L [facility] Alkaline Phosphatase 95 35 - 105 unit/L [facility] Bilirubin, Total 0.7 0.2 - 1.3 mg/dL [facility] Est Glomerular Filtration Rate 86 >=60 mL/min/1. 73 m?? [facility] [...] APRN CHEMISTRY ORDERABL ES [facility] [place] [address] * US Abdomen Limited Hepatology Protocol (06/01/2021 [...] vein. Electronically signed by: Marilee Hernández MD, [facility] ([phone]), at 06/01/2021 9:55 AM Thank you for letting us participate in the care of this patient. If you are a health care provider and have any questions regarding this report, please contact the number above. For patients who have questions, please contact the health pharmacy customer care specialist that requested your imaging first. ?Marilee Her, Staff Physician Electronically Signed Final Report ?? 06/01/2021 10:01 am Narrative 06/01/2021 10:02 AM EST Abdominal ? (Signed Final 06/01/2021 10:01 am) PATIENT INFO: ID #: ? [id number] ?: ??42 (80 yrs)(F) Name: ? MILKA MENDIETA ?Visit Date: 06/01/2021 09:47 am PERFORMED BY: Performed By: ? Lana Gotti RDMS Attending: ?Betty GALLO, Marilee Ragsdale Referred By: ?MOLLY WALLIS Secondary Phy.: ?? MOLLY WALLIS DIRECTOR PART Location: ? [place] SERVICE[facility]S) [facility] - Hepatology Protocol - Abdominal ? 78949 Limited Survey Single Organ or Quadrant - [id number] INDICATIONS: cirrhosis, screen for hcc ------ LIVER: [...] 06/01/2021 10:01 am) PATIENT INFO: ID #: [id number] : 42 (80 yrs)(F) Name: MILKA MENDIETA Visit Date: 06/01/2021 09:47 am PERFORMED BY: Performed By: Lana Gotti RDMS Attending: Marilee Hernández MD Referred By: MOLLY WALLIS Secondary Phy.: MOLLY WALLIS APRN Location: [place] SERVICE(S) PROVIDED: [facility] - Hepatology Protocol - Abdominal 96533 Limited Survey Single Organ or Quadrant - [id number] INDICATIONS: cirrhosis, screen for hcc ------ LIVER: [...] vein. Electronically signed by: Marilee Hernández MD, [facility] ([phone]), at 06/01/2021 9:55 AM Thank you for letting us participate in the care of this patient. If you are a health care provider and have any questions regarding this report, please contact the number above. For patients who have questions, please contact the health pharmacy customer care specialist that requested your imaging first. Marilee Her, Staff Physician Electronically Signed Final Report 06/01/2021 10:01 am Molly Wallis APRN [facility] GEN ORDERAB LES documented in this encounter Visit Diagnoses Diagnosis Hepatic cirrhosis, unspecified hepatic cirrhosis type, unspecified whether ascites present Hepatic cirrhosis, unspecified hepatic cirrhosis type, unspecified whether ascites present documented in this encounter Care Teams Tester Food Products Relationship Specialty Start Date End Date Salome Mcarthur APRN [address] [place] [address] PCP - General Family Medicine 05/30/15 12/11/23 documented as of this encounter
--- OUTSIDE RECORDS SUMMARY | 2024-05-18 16:58 | XMS_ITS | Encounter Summary ---
Author Organization [facility] [place] [address] Care Team Providers Care Lock Corner Machine Operator Name Role Phone Salome Mcarthur APRN Primary Care Provider [phone] Reason for Referral * Diagnostic Test (Routine) - Closed Specialty Diagnoses / Procedures Referred By Contac t Referred To Contact Radiology Diagnoses Hepatic cirrhosis, unspecified hepatic cirrhosis type, unspecified whether ascites present Procedures MRI Abdomen wwo Contrast (Generic) Molly Cui APRN [facility] [place] [address] [place] [address] Referral ID Status Reason Start Date Expiration Date V isits Requested Visits Authorized [id number] Closed Specialty Service Requested 07/14/2018 07/14/2019 1 1 Reason for Visit * Diagnostic Test (Routine) - Closed Specialty Diagnoses / Procedures Referred By Contac t Referred To Contact Radiology Diagnoses Hepatic cirrhosis, unspecified hepatic cirrhosis type, unspecified whether ascites present Procedures MRI Abdomen wwo Contrast (Generic) Molly Cui APRN [facility] [place] [address] [place] [address] Referral ID Status Reason Start Date Expiration Date V isits Requested Visits Authorized [id number] Closed Specialty Service Requested 07/14/2018 07/14/2019 1 1 Encounter Details Date Type Department Care Team (Latest Contact Info) Description 09/10/2018 11:50 AM EDT - 09/10/2018 11:59 PM EDT Hospital Encounter MRI at [facility] [place] [address] Molly Cui APRN [facility] [place] [address] Hepatic cirrhosis, unspecified hepatic cirrhosis type, unspecified [...] protection 06/06/2009 fluticasone propionate (FLONASE) 50 mcg/actuation [place], Suspension [...] tablet Take 1 tablet by mouth daily. glipiZIDE (GLUCOTROL XL) 5 mg Tablet Extended Rel 24 hr 07/28/2018 lactulose (CHRONULAC) 20 gram/30 mL Solution Take 15 mLs by mouth 2 times daily. 1000 mL 3 09/10/2018 06/06/2022 rifAXIMin (XIFAXIN) 550 mg Tablet Take 1 tablet by mouth 2 times daily. 60 tablet 5 02/22/2017 06/06/2022 cinnamon bark 500 mg Capsule Take by mouth. 09/23/2019 diphenhydrAMINE (BENADRYL) 25 mg Capsule Take 25 [...] please contact the number below. Molly Cui RESEARCH ANIMAL ATTENDANT IMG MRI ORDERABLES documented in this encounter [...] mLs documented in this encounter Care Teams Lock Corner Machine Operator Relationship Specialty Start Date End Date Salome Mcarthur APRN [address] [place] [address] PCP - General Family Medicine 05/30/15 12/11/23 documented as of this encounter
--- OUTSIDE RECORDS SUMMARY | 2024-05-18 16:58 | XMS_ITS | Encounter Summary ---
Author Organization [facility] Address [facility] [place] [address] Care Team Providers Care Paper Box Maker Name Role Phone Salome Mcarthur APRN Primary Care Provider [phone] Encounter Details Date Type Department Care Team (Latest Contact Info) Description 03/12/2019 10:01 AM EST - 03/12/2019 11:59 PM [facility] Hospital En[place] [phone] Molly Wallis PRODUCTION AIDE [facility] [place] [address] Hepatic cirrhosis, unspecified hepatic cirrhosis type, unspecified [...] protection 06/06/2009 fluticasone propionate (FLONASE) 50 mcg/actuation [place], Suspension 1 spray daily. pramipexole (MIRAPEX) 0.125 [...] 01:55 pm) PATIENT INFO: ID #: ? [id number] ?: ??42 (78 yrs) Name: ? MILKA MENDIETA ?Visit Date: 03/12/2019 11:07 am PERFORMED BY: Performed By: ? Tigist Castellanos RDMS Attending: ?Lily GALLO, Jean Claude [place] Resident: ? Ruchi GALLO, Kal Montesinos Referred By: ?MOLLY WALLIS Secondary Phy.: ?? MOLLY WALLIS PRODUCTION AIDE Location: ? [place] SERVICE(S) PROVIDED: ??[facility] - Hepatology Protocol - Abdominal ? 48981 ??Limited Survey Single Organ or Quadrant - ??[id number] INDICATIONS: ??cirrhosis, survey for hcc ------ LIVER: [...] 03/12/2019 01:55 pm) PATIENT INFO: ID #: [id number] : 42 (78 yrs) Name: MILKA MENDIETA Visit Date: 03/12/2019 11:07 am PERFORMED BY: Performed By: Tigist Castellanos RDMS Attending: Jean Claude Bautista MD Resident: Kal Hopper MD Referred By: MOLLY WALLIS [facility] Phy.: MOLLY WALLIS APRN Location: [place] SERVICE(S) [facility] - Hepatology Protocol - Abdominal 57044 Limited Survey Single Organ or Quadrant - [id number] INDICATIONS: cirrhosis, survey for hcc ------ LIVER: [...] present documented in this encounter Care Teams Paper Box Maker Relationship Specialty Start Date End Date Salome Mcarthur APRN [address] [place] [address] PCP - General Family Medicine 05/30/15 12/11/23 documented as of this encounter
--- OUTSIDE RECORDS SUMMARY | 2024-05-18 16:58 | XMS_ITS | Encounter Summary ---
Author Organization [facility] Address [facility] [place] [address] Care Team Providers Care Bilingual Social Worker Name Role Phone Salome Mcarthur APRN Primary Care Provider [phone] Encounter Details Date Type Department Care Team (Late st Contact Info) Description 08/06/2018 Ancillary Procedure Radiology Library at [facility] [place] [phone] Ella Castle MD [address] [place] [id number] Pain Social History Tobacco Use Types Packs/Day [...] signed by: Marco A Anthony [facility]([phone]), at 08/06/2018 4:11 PM Ella Castle MD IMG OUTSIDE INTER PRETATION ORDERABLES documented in this encounter Visit Diagnoses Diagnosis Pain Generalized pain documented in this encounter Care Teams Bilingual Social Worker Relationship Specialty Start Date End Date Salome Mcarthur, [address] [place] [address] PCP - General Family Medicine 05/30/15 12/11/23 documented as of this encounter
--- OUTSIDE RECORDS SUMMARY | 2024-05-18 16:58 | XMS_ITS | Encounter Summary ---
Author Organization [facility] [place] [address] Care Team Providers Care Medical Anthropologist Name Role Phone Salome Mcarthur APRN Primary Care Provider [phone] Reason for Visit * Reason Onset Date Comments Reminder Appointment 10/30/2019 Encounter Details Date Type Department Care Team (Late st Contact Info) Description 10/30/2019 Telephone [place] [phone] Salome Licona CMA Reminder Appointment Social History [...] filedocumented in this encounter Care Teams Medical Anthropologist Relationship Specialty Start Date End Date Salome Mcarthur APRN [address] [place] [address] PCP - General Family Medicine 05/30/15 12/11/23 documented as of this encounter
--- OUTSIDE RECORDS SUMMARY | 2024-05-18 16:58 | XMS_ITS | Encounter Summary ---
Author Organization [facility] Address [facility] [place] [address] Care Team Providers Care Cook Chief Name Role Phone Salome Mcarthur APRN Primary Care Provider [phone] Encounter Details Date Type Department Care Team (Late st Contact Info) Description 06/16/2019 Telephone [facility]enterology at [facility] [place] [phone] Emma Chavis Social History Tobacco Use Types [...] - 06/16/2019 10:15 AM EDT Milka Corbett [id number] Diagnosis/Indication: variceal screening 1. Have you ever [...] on filedocumented in this encounter Care Teams Cook Chief Relationship Specialty Start Date End Date Salome Mcarthur APRN [address] [place] [address] PCP - General Family Medicine 05/30/15 12/11/23 documented as of this encounter
--- OUTSIDE RECORDS SUMMARY | 2024-05-18 16:58 | XMS_ITS | Encounter Summary ---
Author Organization [facility] Address [facility] [place] [address] Care Team Providers Care Counter Former Name Role Phone Salome Mcarthur APRN Primary Care Provider [phone] Encounter Details Date Type Department Care Team (Latest Contact Info) Description 10/30/2019 10:30 AM EDT TH Visit (TeleHealth) [place] [address] Molly Cui APRN [facility] [place] [address] Hepatic cirrhosis, unspecified hepatic cirrhosis type, unspecified [...] daily. ??? fluticasone propionate (FLONASE) 50 mcg/actuation [place], Suspension 1 spray daily. ??? pramipexole (MIRAPEX) [...] mouth as needed. Reported on 08/21/2016 ??? [place]-3 Fatty Acids-Vitamin E (FISH OIL) 1,000 mg [...] Cui APRN Section of Gastroenterology [place] [address] Copy: Salome Mcarthur APRN [address] / [place] [address] Patient verbally consents to this telephone visit [...] present documented in this encounter Care Teams Counter Former Relationship Specialty Start Date End Date Salome Mcarthur APRN [address] [place] [address] PCP - General Family Medicine 05/30/15 12/11/23 documented as of this encounter
--- OUTSIDE RECORDS SUMMARY | 2024-05-18 16:58 | XMS_ITS | Encounter Summary ---
Author Organization [facility] [place] [address] Care Team Providers Care School Patrol Name Role Phone Salome Mcarthur APRN Primary Care Provider [phone] Reason for Visit * Auth/Cert Specialty Diagnoses / Procedures Referred By Jose bermudez Referred To Contact Diagnoses 1 yr surv from 09/17/18 Procedures PRO UPPER GI ENDOSCOPY, DIAGNOSTIC EGD, UPPER GI ENDOSCOPY Referral ID Status Reason Start Date Expiration Date Visits Re quested Visits Authorized [id number] 1 1 Encounter Details Date Type Department Care Team (Late st Contact Info) Description 09/23/2019 11:30 AM EDT - 09/23/2019 12:15 PM EDT Surgery [place] [phone] Juliette Chauhan MD [facility] [place] [address] EGD, UPPER GI ENDOSCOPY (WRVU 2.09) Social [...] the day after the procedure, use an kmia-bzh-ijhytrf spray to numb your throat. Sucking on [...] occurs, please contact your Doctor. Please call [phone] before 8pm Mon-Fri with problems, questions or concerns. If you call after 8pm or on weekends, call the Hospital at [phone] and ask to speak to the Financial Officer fabrication lead and the wire bound box machine operator will contact that person for you. When should you call for help? Call [phone] anytime you think you may need emergency [...] any problems. Where can you learn more? [facility] View your After Visit Summary and more online at [email or web address] If you would like to provide feedback about your hospital experience, please call the Office of Patient and Family Relations at . If you have received this After Visit Summary in error, please immediately return it in person to the department, or notify the [facility] Privacy Office by calling toll free at between the hours of 8AM and 5PM to arrange for our retrieval of the documents at no cost to you. Content Version: 12.2 ?? [id number] [employer]. Care instructions adapted under license by [facility]. If you have questions about a medical condition or this instruction, always ask your healthcare professional. [employer] disclaims any warranty or liability for your use of this information. documented in this encounter Medications at Time of Discharge Medication Sig Dispensed Refills Start Date End Date lisinopriL (Zestril) 10 mg tablet Take 1 tablet by mouth once a day for kidney protection 06/06/2009 fluticasone propionate (FLONASE) 50 mcg/actuation [place], Suspension 1 spray daily. pramipexole (MIRAPEX) 0.125 [...] Associated Diagnosis Comments Upper GI Endoscopy, Diagnostic (07961) 09/23/2019 11:55 AM EDT 1 yr surv from 09/17/18 UPPER GI ENDOSCOPY Routine 09/23/2019 11 :41 AM EDT documented in this encounter Results * UPPER GI ENDOSCOPY (09/23/2019 11:41 AM EDT) [facility] Signature UPPER GI ENDOSCOPY [facility] Endoscopy Procedure Date: 09/23/2019 11:41 AM ? Patient Name: Milka Corbett ? N: [id number] ? Date of : 1940 ? Age: 79 ? Order #: [id number] ? Instrument Name: [id number] ? Procedure: ? Upper GI endoscopy Indications: ? Follow-up of esophageal varices Providers: ? Juliette Chauhan MD, Bertha Lizarraga ? TRISHA Oleary, Fauzia Castillo ? TRISHA Kang, Genoveva Webber, Wound Care Rn Referring MD: ?Sophia Mcarthur MD Medicines: ? [...] Procedure Code(s): ?? --- Professional --- ? 62345, Esophagogastroduod enoscopy, ? flexible, transoral; diagnostic, ? including collection of specimen(s) ? by brushing or washing, when ? performed (separate procedure) CPT copyright 2019 [employer]. All rights reserved. The codes documented in this report are preliminary and upon beverage distiller review may be revised to meet current [...] documented in this encounter Care Teams School Patrol Relationship Specialty Start Date End Date Salome Mcarthur, LORET[address] [place] [address] PCP - General Family Medicine 05/30/15 12/11/23 documented as of this encounter
--- OUTSIDE RECORDS SUMMARY | 2024-05-18 16:58 | XMS_ITS | Encounter Summary ---
Author Organization [facility] Address [facility] [place] [address] Care Team Providers Care Automation Qa Lead Name Role Phone Salome Mcarthur APRN Primary Care Provider [phone] Reason for Visit * Reason Onset Date Comments Other 05/30/2018 Encounter Details Date Type Department Care Team (Late st Contact Info) Description 05/30/2018 Telephone [place] [phone] Nelsy Menezes Other Social History Tobacco Use [...] detailed message? Yes Preferred method of communication: [phone] documented in this encounter Plan of Treatment Not on file documented as of this encounter Visit Diagnoses Not on filedocumented in this encounter Care Teams Automation Qa Lead Relationship Specialty Start Date End Date Salome Mcarthur, TALENT RECRUITER [address] [place] [address] PCP - General Family Medicine 05/30/15 12/11/23 documented as of this encounter
--- OUTSIDE RECORDS SUMMARY | 2024-05-18 16:58 | XMS_ITS | Encounter Summary ---
Author Organization [facility] [place] [address] Care Team Providers Care Hat And Cap Sewer Name Role Phone Salome Mcarthur APRN Primary Care Provider [phone] Reason for Visit * Reason Comments Follow-up Encounter Details Date Type Department Care Team (Late st Contact Info) Description 09/10/2018 1:30 PM EDT Office [place] [phone] Molly Wallis APRN [facility] [place] [address] Hepatic cirrhosis, unspecified hepatic cirrhosis type, unspecified [...] Refill ??? fluticasone propionate (FLONASE) 50 mcg/actuation [place], Suspension 1 spray daily. ??? pramipexole (MIRAPEX) [...] mouth every 4 hours as needed. ??? [place]-3 Fatty Acids-Vitamin E (FISH OIL) 1,000 mg [...] Wallis APRN Section of Gastroenterology [place] [address] Copy: Salome Mcarthur APRN [address] / [place] [address] 25 of this 30 minute visit in face to face discussion regarding disease, prognosis and treatment documented in this encounter Plan of Treatment Not on file documented as of this encounter Results * (ABNORMAL) Prothrombin Time (03/12/2019 11:39 AM EST) Prothrombin Time 13.5(H) 9.4 - 12.5 sec [facility] [...] Agency Comment Spec In Lab Mollyjuan a Wallis RACQUET MAKER HEMATOLOGY ORDERAB LES [facility] [place] [address] * (ABNORMAL) Comprehensive metabolic panel (non-fasting) (03/12/2019 11:39 AM EST) Glucose 156 65 - 199 mg/dL [facility] Comment:Diabetes: >=200 mg/d L plus symptoms Blood Urea Nitrogen 19(H) 8 - 18 mg/dL [facility] Creatinine 0.64(L) 0.70 - 1.20 mg/dL [facility] Sodium 143 135 - 145 mmol/L [facility] Potassium 4.1 3.5 - 5.0 mmol/L [facility] Comment: Please note: ??Patients with WBC >100,000 may have falsely elevated Potassium levels. ??For accurate Potassium quantification in these patients send serum separator tube (gold top) for subsequent determinations. ??Contact the Clinical Chemistry Laboratory if there are any questions. Chloride 102 98 - 107 mmol/L [facility] Carbon Dioxide 26 22 - 31 mmol/L [facility] Anion Gap 15 5 - 15 mmol/L [facility] Calcium 10.1 8.5 - 10.5 mg/dL [facility] Protein, Total 7.9 6.1 - 8.0 gm/dL [facility] Albumin 4.4 3.2 - 5.2 gm/dL [facility] Aspartate Aminotransferase 29 0 - 30 unit/L [facility] Alanine Aminotransferase 27 0 - 30 unit/L [facility] Alkaline Phosphatase 91 35 - 105 unit/L [facility] Bilirubin, Total 0.6 0.2 - 1.3 mg/dL [facility] Est Glomerular Filtration Rate 86 >=60 mL/min/1. 73 m?? [facility] Comment: The eGFR was calculated using the CKD-EPI equation. As with all creatinine based estimates of kidney function, eGFR values calculated with the CKD-EPI equation are not accurate in patients with acute kidney failure, extremes of body mass or the acutely ill. http://[employer] eGFR 100 >=60 mL/min/1. 73 m?? [facility] Comment: The eGFR was calculated using the CKD-EPI equation. As with all creatinine based estimates of kidney function, eGFR values calculated with the CKD-EPI equation are not accurate in patients with acute kidney failure, extremes of body mass or the acutely ill. http://[employer] Blood specimen (specimen) 03/12/2019 11:39 AM EST 03/12/2019 11:53 AM EST Narrative Resulting Agency Comment Spec In Lab Molly Wallis APRN CHEMISTRY ORDERABL ES Performing Organization Address City/State/[facility] Co de Phone Number [facility] [place] [address] * US Abdomen Limited Hepatology Protocol (03/12/2019 [...] 01:55 pm) PATIENT INFO: ID #: ? [id number] ?: ??[birth year] (78 yrs) Name: ? MILKA MENDIETA ?Visit Date: 03/12/2019 11:07 am PERFORMED BY: Performed By: ? Tigist Castellanos RDMS Attending: ?Lily GALLO, Jean Claude Lancaster Resident: ? Ruchi GALLO, Kal Montesinos Referred By: ?MOLLY WALLIS Secondary Phy.: ?? MOLLY WALLIS RACQUET MAKER Location: ? [place] SERVICE(S) PROVIDED: ??[facility] - Hepatology Protocol - Abdominal ? [id number] ??Limited Survey Single Organ or Quadrant - ??[id number] INDICATIONS: ??cirrhosis, survey for hcc ------ LIVER: [...] 03/12/2019 01:55 pm) PATIENT INFO: ID #: [id number] : 41 (78 yrs) Name: MILKA MENDIETA Visit Date: 03/12/2019 11:07 am PERFORMED BY: Performed By: Tigist Castellanos RDMS Attending: Jean Claude Bautista MD Resident: Kal Hopper MD Referred By: MOLLY WALLIS [facility] Phy.: MOLLY WALLIS APRN Location: [place] SERVICE(S) PROVIDED: [facility] - Hepatology Protocol - Abdominal 76706 Limited Survey Single Organ or Quadrant - [id number] INDICATIONS: cirrhosis, survey for hcc ------ LIVER: [...] below. Electronically signed by: Jean Claude Bautista, [facility] ([phone]), at 03/12/2019 1:48 PM Jean Claude Bautista, Staff Physician Electronically Signed Final Report 03/12/2019 01:55 pm Molly Wallis APRN IMG GEN ORDERAB LES documented in this encounter Visit Diagnoses Diagnosis Hepatic cirrhosis, unspecified hepatic cirrhosis type, unspecified whether ascites present Hepatic cirrhosis, unspecified hepatic cirrhosis type, unspecified whether ascites present documented in this encounter Care Teams Hat And Cap Sewer Relationship Specialty Start Date End Date Salome Mcarthur APRN [address] [place] [address] PCP - General Family Medicine 05/30/15 12/11/23 documented as of this encounter
--- OUTSIDE RECORDS SUMMARY | 2024-05-18 16:58 | XMS_ITS | Encounter Summary ---
Author Organization [facility] [place] [address] Care Team Providers Care Bundle Tier And Labeler Name Role Phone Salome Mcarthur APRN Primary Care Provider [phone] Reason for Referral * Diagnostic Test (Routine) - Closed Specialty Diagnoses / Procedures Referred By Contruth t Referred To Contact Radiology Diagnoses Hepatic cirrhosis, unspecified hepatic cirrhosis type, unspecified whether ascites present Procedures MRI Abdomen wwo Contrast (Generic) Molly Cui APRN [facility] [place] [address] [place] [address] Referral ID Status Reason Start Date Expiration Date V isits Requested Visits Authorized [id number] Closed Specialty Service Requested 02/26/2018 02/26/2019 1 1 Encounter Details Date Type Department Care Team (Late st Contact Info) Description 02/26/2018 11:00 AM EST Office [place] [address] Molly Cui APRN [facility] [place] [address] Hepatic cirrhosis, unspecified hepatic cirrhosis [...] mouth as needed. Reported on 08/21/2016 ??? [place]-3 Fatty Acids-Vitamin E (FISH OIL) 1,000 mg [...] Cui APRN Section of Gastroenterology [place] [address] Copy: Salome Mcarthur APRN [address] / [place] [address] 25 of this 30 minute visit in [...] demonstrate a somewhat reticular pattern of high V0fomofe intensity most pronounced in the inferior right [...] made given differences in technique. Recommend reference [facility] CT report for management [...] present documented in this encounter Care Teams Bundle Tier And Labeler Relationship Specialty Start Date End Date Salome Mcarthur APRN [address] [place] [address] PCP - General Family Medicine 05/30/15 12/11/23 documented as of this encounter
--- OUTSIDE RECORDS SUMMARY | 2024-05-18 16:58 | XMS_ITS | Encounter Summary ---
Author Organization [facility] Address [facility] [place] [address] Care Team Providers Care Football Scout Name Role Phone Salome Mcarthur APRN Primary Care Provider [phone] Encounter Details Date Type Department Care Team (Late st Contact Info) Description 09/10/2018 Telephone [place] [phone] Laura Pike Social History Tobacco Use Types [...] meds?:no Current medical conditions? no BMI:27.21 Prep:proclear Parking Analyst?:yes Instructions to patient?:instructions to patient at 4L/Exit 09/10/2018~[facility] documented in this encounter Plan of Treatment Not on file documented as of this encounter Visit Diagnoses Not on filedocumented in this encounter Care Teams Football Scout Relationship Specialty Start Date End Date Salome Mcarthur APRN [address] [place] [address] PCP - General Family Medicine 05/30/15 12/11/23 documented as of this encounter
--- OUTSIDE RECORDS SUMMARY | 2024-05-18 16:58 | XMS_ITS | Encounter Summary ---
Author Organization [facility] [place] [address] Care Team Providers Care Supervisor Reinforced Steel Placing Name Role Phone Salome Mcarthur APRN Primary Care Provider [phone] Reason for Visit * Auth/Cert Specialty Diagnoses / Procedures Referred By Contac t Referred To Contact Diagnoses cirrhosis,screening for varices (IVCS) prep: proclear Procedures PRO UPPER GI ENDOSCOPY, DIAGNOSTIC EGD, UPPER GI ENDOSCOPY Referral ID Status Reason Start Date Expiration Date Visits Re quested Visits Authorized [id number] 1 1 Encounter Details Date Type Department Care Team (Latest Contact Info) Description 09/17/2018 8:19 AM EDT - 09/17/2018 11:25 AM EDT Hospital Encounter Gastroenterology [place] [phone] Juliette Chauhan MD [facility] [place] [address] Discharge Disposition: Home Social History Tobacco Use [...] better as expected. Saturday-Saturday Same Day Endo [phone] 7a-8p Otherwise contact [phone] and ask to speak to the invoice control clerk electric distribution engineer Follow-up care is a palomo part of your treatment and safety. Be sure to make and go to all appointments, and call your doctor if you are having problems. Instructions have been reviewed and patient expresses understanding Please call [phone] before 8pm Sat-Sat with problems, questions or concerns. If you call after 8pm or on weekends, call the Hospital at [phone] and ask to speak to the Capacitor Pack Press Operator electric distribution engineer and the power plant operator apprentice will contact that person for you. UPPER [...] WHEN SHOULD YOU CALL FOR HELP? Call [phone] anytime you think that you need emergency [...] better as expected. Saturday-Saturday Same Day Endo [phone] 7a-8p Otherwise contact [phone] and ask to speak to the invoice control clerk electric distribution engineer Follow-up care is a palomo part of [...] protection 06/06/2009 fluticasone propionate (FLONASE) 50 mcg/actuation [place], Suspension 1 spray daily. pramipexole (MIRAPEX) 0.125 [...] 02/24/2009 04/28/2024 documented as of this encounter Miscellaneous Notes [...] Electronically signed by: Kehinde Martin Gastroenterology Fellow [facility] Pager [phone] 09/17/2018 documented in this encounter Plan of Treatment Not on file documented as of this encounter Procedures Procedure Name Priority Date/Time Associated Diagnosis Comments EGD, UPPER GI ENDOSCOPY (WRVU 2.09) 09/17/2018 10:04 AM EDT cirrhosis,screening for varices (IVCS) prep: proclear UPPER GI ENDOSCOPY Routine 09/17/2018 9: 58 AM EDT documented in this encounter Results * UPPER GI ENDOSCOPY (09/17/2018 9:58 AM EDT) [facility] UPPER GI ENDOSCOPY [facility] Endoscopy Procedure Date: 09/17/2018 9:58 AM ? Patient Name: Milka Corbett ? N: [id number] ? Date of : 1940 ? Age: 78 ? Order #: [id number] ? Instrument Name: [id number] ? Procedure: ? Upper GI endoscopy Indications: [...] the physician, the nurse ? and the compliance field technician. The procedure was ? verified in [...] Procedure Code(s): ?? --- Professional --- ? 33816, Esophagogastroduod enoscopy, ? flexible, transoral; diagnostic, ? including collection of specimen(s) ? by brushing or washing, when ? performed (separate procedure) CPT copyright 2017 [employer]. All rights reserved. The codes documented in this report are preliminary and upon drupal programmer review may be revised to meet current compliance requirements. Attending Participation: ? I was present and participated during the entire ? procedure, including non-palomo portions. ? Juliette Greer Tien, 09/17/2018 10:32:25 AM Number of Addenda: 0 Note Initiated On: 09/17/2018 9:58 AM PROVATION 09/17/2018 9:58 AM EDT Salome Mcarthur STAINED GLASS GLAZIER HELPER GENERAL SURGICAL OR DERABLES PROVATION documented in this encounter Visit Diagnoses Not on filedocumented in this encounter Active and Recently Administered Medications Times are shown in EDT. PRN Medication Order 09/15/2018 09/16/2018 09/17/2018 fentaNYL 50 mcg/mL multi-dose injection (CANCELED) ONCE PRN, Starting on 09/17/18 at 1006, Until Sat09/17/18 at 1325, Intra-Operative (Intra-Procedure), Routine 1006 (Given - Provid er: Bertha Oleary, TRISHA)1011 (Given - Provider: Bertha Oleary RN) midazolam (PF) (VERSED) multi-dose injection (CANCELED) ONCE PRN, Starting on 6/12/19 at 1006, Until Sat09/17/18 at 1325, Intra-Operative (Intra-Procedure), Routine 1006 (Given - Provid er: Bertha Oleary, RN)1011 (Given - Provider: Bertha Oleary, TRISHA) documented in this encounter Care Teams Supervisor Reinforced Steel Placing Relationship Specialty Start Date End Date Salome Mcarthur APRN [address] [place] [address] PCP - General Family Medicine 05/30/15 12/11/23 documented as of this encounter
--- OUTSIDE RECORDS SUMMARY | 2024-05-18 16:58 | XMS_ITS | Encounter Summary ---
Author Organization [facility] [place] [address] Care Team Providers Care Cinema Operator Name Role Phone Salome Mcarthur APRN Primary Care Provider [phone] Encounter Details Date Type Department Care Team (Latest Contact Info) Description 03/12/2019 11:30 AM EST Laboratory Appointment Lab [address] [place] [phone] Hepatic cirrhosis, unspecified hepatic cirrhosis type, unspecified [...] 11:39 AM EST) Neutrophil % 57.5 % [facility] Neutrophil Absolute 4.18 1.70 - 6.10 x10(3)/[facility] LAB[facility]AT[facility] Lymph % 31.5 % [facility] Lymphocytes Abs 2.3 0.9 - 3.2 x10(3)/[facility] LABORATORY Monocyte % 7.9 % [facility] Monocyte Abs 0.6 0.3 - 0.9 x10(3)/[facility] LABORATORY Eos % 2.1 % [facility] Eosinophils Abs 0.2 0.0 - 0.4 x10(3)/[facility]ATORY Basophil % 0.7 % [facility] Baso [...] Gran Absolute 0.02 0.00 - 0.04 x10(3)/[facility]AT[facility] Blood specimen (specimen) 03/12/2019 11:39 AM EST 03/12/2019 11:54 AM EST Narrative Resulting Agency Comment Spec In Lab Molly Cui APRN HEMATOLOGY ORDERAB LES [facility] [place] [address] * (ABNORMAL) Hemogram (03/12/2019 11:39 AM EST) Pathologist [facility] White Blood Cell 7.3 4.0 - 9.5 x10(3)/mc L [facility] Red Blood Cell 4.50 4.00 - 5.21 x10(6)/mc L [facility] Hemoglobin 13.8 11.7 - 15.5 gm/dL [facility] Hematocrit 41.2 35.7 - 45.8 % [facility] Mean Cell Volume 91.6 82.6 - 94.4 fL [facility] Mean Cell Hemoglobin 30.7 27.1 - 32.0 pg [facility] Mean Cell Hemoglobin Concentration 33.5 31.7 - 35.0 gm/dL [facility] Platelet 122(L) 145 - 357 x10(3)/mc L [facility] RDW Standard Deviation 43.8 37.0 - 46.0 [facility] RDW coefficient of variation 13.2 11.5 - 14.1 % [facility] Mean Platelet Volume 11.9 7.6 - 12.9 fL [facility] NRBC% auto 0.0 % [facility] NRBC Absolute 0.000 0.000 - 0.000 x10(3)/ L [facility] Blood specimen (specimen) 03/12/2019 11:39 AM EST 03/12/2019 11:54 AM EST Narrative Resulting Agency Comment Spec In Lab Molly Cui APRN HEMATOLOGY ORDERAB LES [facility] [place] [address] * (ABNORMAL) Comprehensive metabolic panel (non-fasting) (03/12/2019 11:39 AM EST) [facility] Glucose 156 65 - 199 mg/dL [facility] Comment:Diabetes: >=200 mg/d L plus symptoms Blood Urea Nitrogen 19(H) 8 - 18 mg/dL [facility] Creatinine 0.64(L) 0.70 - 1.20 mg/dL [facility] Sodium 143 135 - 145 mmol/L [facility] Potassium 4.1 3.5 - 5.0 mmol/L [facility] [...] 31 mmol/L [facility] Anion Gap 15 5 - 15 mmol/L [facility] Calcium 10.1 8.5 - 10.5 mg/dL [facility] Protein, Total 7.9 6.1 - 8.0 gm/dL [facility] Albumin 4.4 3.2 - 5.2 gm/dL [facility] Aspartate Aminotransferase 29 0 - 30 unit/L [facility] Alanine Aminotransferase 27 0 - 30 unit/L [facility] Alkaline Phosphatase 91 35 - 105 unit/L [facility] Bilirubin, Total 0.6 0.2 - 1.3 mg/dL [facility] Est Glomerular Filtration Rate 86 >=60 mL/min/1. 73 m?? [facility] Comment: The eGFR was calculated using the CKD-EPI equation. As with all creatinine based estimates of kidney function, eGFR values calculated with the CKD-EPI equation are not accurate in patients with acute kidney failure, extremes of body mass or the acutely ill. http://[employer]/[facility] eGFR 100 >=60 mL/min/1. 73 m?? [facility] Comment: The eGFR was calculated using the CKD-EPI equation. As with all creatinine based estimates of kidney function, eGFR values calculated with the CKD-EPI equation are not accurate in patients with acute kidney failure, extremes of body mass or the acutely ill. http://[employer]/[facility] Blood specimen (specimen) 03/12/2019 11:39 AM EST 03/12/2019 11:53 AM EST Narrative Resulting Agency Comment Spec In Lab Molly Cui APRN CHEMISTRY ORDERABL ES Performing Organization Address [facility] de Phone Number [facility] [place] [address] * (ABNORMAL) Prothrombin Time (03/12/2019 11:39 AM EST) Prothrombin Time 13.5(H) 9.4 - 12.5 sec [facility] International Normalization Ratio 1.2 [facility] Comment: An INR <2.0 [...] HEMATOLOGY ORDERAB LES Performing Organization Address [facility] Co de Phone Number [facility] [place] [address] documented in this encounter Visit Diagnoses Diagnosis Hepatic cirrhosis, unspecified hepatic cirrhosis type, unspecified whether ascites present documented in this encounter Care Teams Cinema Operator Relationship Specialty Start Date End Date Salome Mcarthur APRN [address] [place] [address] PCP - General Family Medicine 05/30/15 12/11/23 documented as of this encounter
--- OUTSIDE RECORDS SUMMARY | 2024-05-18 16:58 | XMS_ITS | Encounter Summary ---
Author Organization [facility] [place] [address] Care Team Providers Care Body And Fender Mechanic Name Role Phone Salome Mcarthur APRN Primary Care Provider [phone] Reason for Visit * Auth/Cert Specialty Diagnoses / Procedures Referred By Jose bermudez Referred To Contact Diagnoses 1 yr surv from 09/17/18 Procedures PRO UPPER GI ENDOSCOPY, DIAGNOSTIC EGD, UPPER GI ENDOSCOPY Referral ID Status Reason Start Date Expiration Date Visits Re quested Visits Authorized [id number] 1 1 Encounter Details Date Type Department Care Team (Latest Contact Info) Description 09/23/2019 10:29 AM EDT - 09/23/2019 2:07 PM EDT Hospital [place] [phone] Juliette Chauhan MD [facility] [address] Discharge Disposition: Home Social History Tobacco Use [...] the day after the procedure, use an [id number] spray to numb your throat. Sucking on [...] occurs, please contact your Doctor. Please call [phone] before 8pm Mon-Fri with problems, questions or concerns. If you call after 8pm or on weekends, call the Hospital at [phone] and ask to speak to the Farm Product Purchaser director of pupil personnel program and the track liner operator will contact that person for you. When should you call for help? Call [phone] anytime you think you may need emergency [...] problems. Where can you learn more? [facility] View your After Visit Summary and more online at [email or web address] If you would like to provide feedback about your hospital experience, please call the Office of Patient and Family Relations at . If you have received this After Visit Summary in error, please immediately return it in person to the department, or notify the [facility] Privacy Office by calling toll free at between the hours of 8AM and 5PM to arrange for our retrieval of the documents at no cost to you. Content Version: 12.2 ?? [id number] [employer]. Care instructions adapted under license by [facility]. If you have questions about a medical condition or this instruction, always ask your healthcare professional. [employer] disclaims any warranty or liability for your use of this information. documented in this encounter Medications at Time of Discharge Medication Sig Dispensed Refills Start Date End Date lisinopriL (Zestril) 10 mg tablet Take 1 tablet by mouth once a day for kidney protection 06/06/2009 fluticasone propionate (FLONASE) 50 mcg/actuation [place], Suspension 1 spray daily. pramipexole (MIRAPEX) 0.125 [...] Associated Diagnosis Comments Upper GI Endoscopy, Diagnostic (16814) 09/23/2019 11:55 AM EDT 1 yr surv from 09/17/18 UPPER GI ENDOSCOPY Routine 09/23/2019 11 :41 AM EDT documented in this encounter Results * UPPER GI ENDOSCOPY (09/23/2019 11:41 AM EDT) [facility] UPPER GI ENDOSCOPY [facility] Endoscopy Procedure Date: 09/23/2019 11:41 AM ? Patient Name: Milka Corbett ? N: [id number] ? Date of : 1940 ? Age: 79 ? Order #: [id number] ? Instrument Name: [id number] ? Procedure: ? Upper GI endoscopy Indications: ? Follow-up of esophageal varices Providers: ? Juliette Chauhan MD, Bertha Lizarraga ? TRISHA Oleary, Fauzia Castillo ? TRISHA Kang, Genoveva Webber, Technician Anatomic Pathology Referring MD: ?Sophia Mcarthur MD Medicines: ? [...] Procedure Code(s): ?? --- Professional --- ? 71763, Esophagogastroduod enoscopy, ? flexible, transoral; diagnostic, ? including collection of specimen(s) ? by brushing or washing, when ? performed (separate procedure) CPT copyright 2019 [employer]. All rights reserved. The codes documented in this report are preliminary and upon enterprise sales executive review may be revised to meet current [...] RN) documented in this encounter Care Teams Body And Fender Mechanic Relationship Specialty Start Date End Date Salome Mcarthur, HOUSEKEEPING MANAGER [address] [place] [address] PCP - General Family Medicine 05/30/15 12/11/23 documented as of this encounter
--- OUTSIDE RECORDS SUMMARY | 2024-05-18 16:58 | XMS_ITS | Encounter Summary ---
Author Organization [facility] Address [facility] [place] [address] Care Team Providers Care Saxophone Player Name Role Phone Salome Mcarthur APRN Primary Care Provider [phone] Encounter Details Date Type Department Care Team (Late st Contact Info) Description 11/02/2019 Orders Only [place] [address] Molly Wallis APRN [facility] [place] [address] Hepatic cirrhosis, unspecified hepatic cirrhosis type, unspecified [...] Alisha Grove MD, [facility] ([phone]), at 05/19/2020 11:51 AM ? Alisha Grove, Staff Physician Electronically Signed Final Report ?? 05/19/2020 11:57 am Narrative 05/19/2020 11:58 AM EST Abdominal ? (Signed Final 05/19/2020 11:57 am) PATIENT INFO: ID #: ? [id number] ?: ??[birth year] (79 yrs)(F) Name: ? MILKA MENDIETA ?Visit Date: 05/19/2020 11:19 am PERFORMED BY: Performed By: ? Gabi Mtz RDMS Attending: ?Perfecto GALLO, Alisha Carpio Resident: ? Tacho Guajardo MD Referred By: ?MOLLY WALLIS Secondary Phy.: ?? MOLLY WALLIS INSPECTOR PLATING Location: ? [place] SERVICE(S) PROVIDED: ??UABDLIM - Hepatology Protocol - Abdominal ? 02316 ??Limited Survey Single Organ or Quadrant - ??[id number] INDICATIONS: ??cirrhosis, screen for hcc ------ LIVER: [...] 05/19/2020 11:57 am) PATIENT INFO: ID #: [id number] : 42 (79 yrs)(F) Name: MILKA MENDIETA Visit Date: 05/19/2020 11:19 am PERFORMED BY: Performed By: Gabi Mtz RDMS Attending: Alisha Grove MD Resident: Tacho Guajardo MD Referred By: MOLLY WALLIS [facility] Phy.: MOLLY WALLIS APRN Location: [place] SERVICE(S) PROVIDED: [facility] - Hepatology Protocol - Abdominal 41511 Limited Survey Single Organ or Quadrant - [id number] INDICATIONS: cirrhosis, screen for hcc ------ LIVER: [...] Final Report 05/19/2020 11:57 am Molly Wallis INSPECTOR PLATING IMG US GEN ORDERAB LES * Prothrombin [...] HEMATOLOGY ORDERAB LES [facility] [place] [address] * (ABNORMAL) Comprehensive metabolic panel (non-fasting) (05/19/2020 10:25 AM EST) Pathologist [facility] Glucose 112 65 - 199 mg/dL [facility] [...] CHEMISTRY ORDERABL ES [facility] [place] [address] documented in this encounter Visit Diagnoses Diagnosis Hepatic cirrhosis, unspecified hepatic cirrhosis type, unspecified whether ascites present Hepatic cirrhosis, unspecified hepatic cirrhosis type, unspecified whether ascites present documented in this encounter Care Teams Saxophone Player Relationship Specialty Start Date End Date Salome Mcarthur APRN [address] [place] [address] PCP - General Family Medicine 05/30/15 12/11/23 documented as of this encounter
--- OUTSIDE RECORDS SUMMARY | 2024-05-18 16:58 | XMS_ITS | Encounter Summary ---
Author Organization [facility] Address [facility] [place] [address] Care Team Providers Care Buttonhole Maker Hand Name Role Phone Salome Mcarthur APRN Primary Care Provider [phone] Encounter Details Date Type Department Care Team (Late st Contact Info) Description 07/14/2018 Telephone [place] [phone] Crista Kyle Social History Tobacco Use Types [...] on filedocumented in this encounter Care Teams Buttonhole Maker Hand Relationship Specialty Start Date End Date Salome Mcarthur APRN [address] [place] [address] PCP - General Family Medicine 05/30/15 12/11/23 documented as of this encounter
--- OUTSIDE RECORDS SUMMARY | 2024-05-18 16:58 | XMS_ITS | Encounter Summary ---
Author Organization [facility] [place] [address] Care Team Providers Care Matrix Drier Tender Name Role Phone Salome Mcarthur APRN Primary Care Provider Encounter Details Date Type Department Care Team (Late st Contact Info) Description 09/10/2018 Telephone Cardiology at [address] [phone] Laura Pike Social History Tobacco Use Types [...] on filedocumented in this encounter Care Teams Matrix Drier Tender Relationship Specialty Start Date End Date Salome Mcarthur APRN [address] [place] [address] PCP - General Family Medicine 05/30/15 12/11/23 documented as of this encounter
--- OUTSIDE RECORDS SUMMARY | 2024-05-18 16:58 | XMS_ITS | Encounter Summary ---
Author Organization [facility] Address [facility] [place] [address] Care Team Providers Care Summer Sessions Director Name Role Phone Salome Mcarthur APRN Primary Care Provider [phone] Reason for Visit * Reason Onset Date Comments Results 03/13/2018 Encounter Details Date Type Department Care Team (Late st Contact Info) Description 03/13/2018 Telephone [place] [phone] Jacque Gale, RN Results Social History Tobacco [...] on filedocumented in this encounter Care Teams Summer Sessions Director Relationship Specialty Start Date End Date Salome Mcarthur APRN [address] [place] [address] PCP - General Family Medicine 05/30/15 12/11/23 documented as of this encounter
--- OUTSIDE RECORDS SUMMARY | 2024-05-18 16:58 | XMS_ITS | Encounter Summary ---
Author Organization [facility] [place] [address] Care Team Providers Care Outreach Librarian Name Role Phone Salome Mcarthur APRN Primary Care Provider [phone] Reason for Referral * Diagnostic Test (Routine) - Closed Specialty Diagnoses / Procedures Referred By Jose t Referred To Contact Radiology Diagnoses Hepatic cirrhosis, unspecified hepatic cirrhosis type, unspecified whether ascites present Procedures MRI Abdomen wwo Contrast (Generic) Molly Cui APRN [facility] [place] [address] [place] [address] Referral ID Status Reason Start Date Expiration Date V isits Requested Visits Authorized [id number] Closed Specialty Service Requested 07/14/2018 07/14/2019 1 1 Encounter Details Date Type Department Care Team (Late st Contact Info) Description 07/14/2018 Orders [place] [address] Molly Cui APRN [facility] [place] [address] Hepatic cirrhosis, unspecified hepatic cirrhosis [...] Prothrombin Time 12.8(H) 9.4 - 12.5 sec [facility] [...] HEMATOLOGY ORDERAB LES [facility] [place] [address] * (ABNORMAL) Comprehensive metabolic panel (non-fasting) (09/10/2018 1:46 PM EDT) Glucose 125 65 - 199 mg/dL [facility] Comment:Diabetes: >=200 mg/d L plus symptoms Blood Urea Nitrogen 18 8 - 18 mg/dL [facility] Creatinine 0.75 0.70 - 1.20 mg/dL [facility] Sodium 139 135 - 145 mmol/L [facility] Potassium 3.9 3.5 - 5.0 mmol/L [facility] Comment: Please note: ??Patients with WBC >100,000 may have falsely elevated Potassium levels. ??For accurate Potassium quantification in these patients send serum separator tube (gold top) for subsequent determinations. ??Contact the Clinical Chemistry Laboratory if there are any questions. Chloride 99 98 - 107 mmol/L [facility] Carbon Dioxide 26 22 - 31 mmol/L [facility] Anion Gap 14 5 - 15 mmol/L [facility] Calcium 10.5 8.5 - 10.5 mg/dL [facility] Protein, Total 7.9 6.1 - 8.0 gm/dL [facility] Albumin 4.7 3.2 - 5.2 gm/dL [facility] Aspartate Aminotransferase 39(H) 0 - 30 unit/L [facility] Alanine Aminotransferase 41(H) 0 - 30 unit/L [facility] Alkaline Phosphatase 69 40 - 104 unit/L [facility] Bilirubin, Total 0.7 0.2 - 1.3 mg/dL [facility] Est Glomerular Filtration Rate 77 >=60 mL/min/1. 73 m?? [facility] Comment: The eGFR was calculated using the CKD-EPI equation. As with all creatinine based estimates of kidney function, eGFR values calculated with the CKD-EPI equation are not accurate in patients with acute kidney failure, extremes of body mass or the acutely ill. http://[facility]/DHnkf eGFR 89 >=60 mL/min/1. 73 m?? [facility] Comment: The eGFR was calculated using the CKD-EPI equation. As with all creatinine based estimates of kidney function, eGFR values calculated with the CKD-EPI equation are not accurate in patients with acute kidney failure, extremes of body mass or the acutely ill. http://[facility]/DHMCnkf Blood specimen (specimen) 09/10/2018 1:46 PM EDT 09/10/2018 2:00 PM EDT Narrative Resulting Agency Comment Spec In Lab Molly Cui APRN CHEMISTRY ORDERABL ES [facility] [place] [address] * MRI Abdomen wwo Contrast (Generic) (09/10/2018 [...] present documented in this encounter Care Teams Outreach Librarian Relationship Specialty Start Date End Date Salome Mcarthur APRN [address] [place] [address] PCP - General Family Medicine 05/30/15 12/11/23 documented as of this encounter
--- OUTSIDE RECORDS SUMMARY | 2024-05-18 16:58 | XMS_ITS | Encounter Summary ---
Author Organization [facility] [place] [address] Care Team Providers Care Metal Window Screen Assembler Name Role Phone Salome Mcarthur APRN Primary Care Provider [phone] Encounter Details Date Type Department Care Team (Late st Contact Info) Description 07/15/2018 Orders [place] [phone] Crista Kyle Social History Tobacco Use Types [...] on filedocumented in this encounter Care Teams Metal Window Screen Assembler Relationship Specialty Start Date End Date Salome Mcarthur APRN [address] [place] [address] PCP - General Family Medicine 05/30/15 12/11/23 documented as of this encounter
--- OUTSIDE RECORDS SUMMARY | 2024-05-18 16:58 | XMS_ITS | Encounter Summary ---
Author Organization [facility] [place] [address] Care Team Providers Care Laundry Technician Name Role Phone Salome Mcarthur APRN Primary Care Provider [phone] Reason for Visit * Auth/Cert Specialty Diagnoses / Procedures Referred By Jose t Referred To Contact Diagnoses cirrhosis,screening for varices (IVCS) prep: proclear Procedures PRO UPPER GI ENDOSCOPY, DIAGNOSTIC EGD, UPPER GI ENDOSCOPY Referral ID Status Reason Start Date Expiration Date Visits Re quested Visits Authorized [id number] 1 1 Encounter Details Date Type Department Care Team (Late st Contact Info) Description 09/17/2018 11:30 AM EDT - 09/17/2018 12:00 PM EDT [place] [phone] Juliette Chauhan MD [facility] [place] [address] EGD, UPPER GI ENDOSCOPY (WRVU 2.09) Social [...] better as expected. Saturday-Saturday Same Day Endo [phone] 7a-8p Otherwise contact [phone] and ask to speak to the towel sewer sedimentationist Follow-up care is a palomo part of your treatment and safety. Be sure to make and go to all appointments, and call your doctor if you are having problems. Instructions have been reviewed and patient expresses understanding Please call [phone] before 8pm Sat-Sat with problems, questions or concerns. If you call after 8pm or on weekends, call the Hospital at [phone] and ask to speak to the Siding Installer sedimentationist and the string winding machine operator will contact that person for [...] WHEN SHOULD YOU CALL FOR HELP? Call [phone] anytime you think that you need emergency [...] better as expected. Saturday-Saturday Same Day Endo [phone] 7a-8p Otherwise contact [phone] and ask to speak to the towel sewer sedimentationist Follow-up care is a palomo part of [...] protection 06/06/2009 fluticasone propionate (FLONASE) 50 mcg/actuation [place], Suspension [...] Electronically signed by: Kehinde Martin Gastroenterology Fellow [facility] Pager [phone] 09/17/2018 documented in this encounter Plan of [...] 9:58 AM EDT) UPPER GI ENDOSCOPY [facility] Endoscopy Procedure Date: 09/17/2018 9:58 AM ? Patient Name: Milka Corbett ? N: [id number] ? Date of : 1940 ? Age: 78 ? Order #: [id number] ? Instrument Name: [id number] ? Procedure: ? Upper GI endoscopy Indications: [...] the physician, the nurse ? and the dish technician. The procedure was ? verified in [...] Procedure Code(s): ?? --- Professional --- ? 52577, Esophagogastroduod enoscopy, ? flexible, transoral; diagnostic, ? including collection of specimen(s) ? by brushing or washing, when ? performed (separate procedure) CPT copyright 2017 [employer]. All rights reserved. The codes documented in this report are preliminary and upon community associate review may be revised to meet current compliance requirements. Attending Participation: ? I was present and participated during the entire ? procedure, including non-palomo portions. ? Juliette Greer Tien, 09/17/2018 10:32:25 AM Number of Addenda: 0 Note Initiated On: 09/17/2018 9:58 AM PROVATION 09/17/2018 9:58 AM EDT Salome Mcarthur [employer] DERABLES PROVATION documented in this encounter Visit Diagnoses Not on filedocumented in this encounter Administered Medications Inactive Administered Medications - up to 3 most recent administrations Medication Order MAR Action Action Date Dose Rate Site fentaNYL 50 mcg/mL multi-dose injection ONCE PRN, Starting on 09/17/18 at 1006, [...] RN) documented in this encounter Care Teams Laundry Technician Relationship Specialty Start Date End Date Salome Mcarthur APRN [address] [place] [address] PCP - General Family Medicine 05/30/15 12/11/23 documented as of this encounter
--- OUTSIDE RECORDS SUMMARY | 2024-05-18 16:58 | XMS_ITS | Encounter Summary ---
Author Organization [facility] Address [facility] [place] [place] [address] Care Team Providers Care Gathering Machine Feeder Name Role Phone Salome Mcarthur APRN Primary Care Provider [phone] Encounter Details Date Type Department Care Team (Late st Contact Info) Description 05/19/2020 12:30 PM EST Office Visit [place] [address] Molly Wallis APRN [facility] [place] [address] Hepatic cirrhosis, unspecified hepatic cirrhosis type, unspecified [...] about moving, but haven't moved out of [place]. She denies any ascites, blood in stool, [...] Apply 1 Application topically as needed. ??? Melbeta-3 Fatty Acids-Vitamin E (FISH OIL) 1,000 mg [...] Wallis APRN Section of Gastroenterology [place] [address] Copy: Salome Mcarthur APRN [address] / [place] [address] Time spent reviewing records prior to this [...] Prothrombin Time 11.9 9.4 - 12.[address] [facility] [...] Lab Molly Wallis APRN HEMATOLOGY ORDERAB LES [facility] [place] [address] * (ABNORMAL) Comprehensive metabolic panel (non-fasting) (12/06/2020 12:34 PM EDT) Glucose 90 65 - 199 mg/dL [facility] Comment:Diabetes: >=200 mg/d L plus symptoms Blood Urea Nitrogen 23(H) 8 - 18 mg/dL [facility] Creatinine 0.78 0.70 - 1.20 mg/dL [facility] Sodium 141 135 - 145 mmol/L [facility] Potassium 4.4 3.5 - 5.0 mmol/L [facility] Comment: Please note: ??Patients with WBC >100,000 may have falsely elevated Potassium levels. ??For accurate Potassium quantification in these patients send serum separator tube (gold top) for subsequent determinations. ??Contact the Clinical Chemistry Laboratory if there are any questions. Chloride 103 98 - 107 mmol/L [facility] Carbon Dioxide 26 22 - 31 mmol/L [facility] Anion Gap 12 5 - 15 mmol/L [facility] Calcium 10.2 8.5 - 10.5 mg/dL [facility] Protein, Total 6.9 6.1 - 8.0 gm/dL [facility] Albumin 4.2 3.2 - 5.2 gm/dL [facility] Aspartate Aminotransferase 35(H) 0 - 30 unit/L [facility] Alanine Aminotransferase 36(H) 0 - 30 unit/L [facility] Alkaline Phosphatase 82 35 - 105 unit/L [facility] Bilirubin, Total 0.7 0.2 - 1.3 mg/dL [facility] Est Glomerular Filtration Rate 72 >=60 mL/min/1. 73 m?? [facility] Comment: This patient? s estimated [...] Lab Molly Wallis APRN CHEMISTRY ORDERABL ES [facility] [place] [address] * US Abdomen Limited Hepatology Protocol (09/26/2020 [...] who have questions please contact the health lawn caretaker that requested your imaging first. Thank you for letting us participate in the care of this patient. If you are a health care provider and have any questions regarding this report, please contact the number below. For patients who have questions, please contact the health lawn caretaker that requested your imaging first. ??Meghan Cardozo, [facility] & Dept Chair - Rad Electronically Signed Final Report ?? 09/26/2020 11:56 am Narrative 09/26/2020 11:57 AM EDT Abdominal ? (Signed Final 09/26/2020 11:56 am) PATIENT INFO: ID #: ? [id number] ?: ??[birth year] (80 yrs)(F) Name: ? MILKA MENDIETA ?Visit Date: 09/26/2020 11:29 am PERFORMED BY: Performed By: ? Crista Zhong RDMS Attending: ?Juliane GALLO, Meghan Ventura Referred By: ?MOLLY WALLIS Secondary Phy.: ?? MOLLY WALLIS BLISTER PACKING MACHINE TENDER Location: ? [place] SERVICE(S) PROVIDED: UABDLIM - Hepatology Protocol - Abdominal ? 45723 Limited Survey Single Organ or Quadrant - [id number] INDICATIONS: cirrhosis, screen for hcc COMPARISON: US: [...] 09/26/2020 11:56 am) PATIENT INFO: ID #: [id number] : 42 (80 yrs)(F) Name: MILKA MENDIETA Visit Date: 09/26/2020 11:29 am PERFORMED BY: Performed By: Crista Zhong RDMS Attending: Meghan Cardozo MD Referred By: MOLLY WALLIS [facility] Phy.: MOLLY WALLIS APRN Location: [place] SERVICE(S) PROVIDED: UABDLIM - Hepatology Protocol - Abdominal 41664 Limited Survey Single Organ or Quadrant - [id number] INDICATIONS: cirrhosis, screen for hcc COMPARISON: US: [...] who have questions please contact the health lawn caretaker that requested your imaging first. Thank you for letting us participate in the care of this patient. If you are a health care provider and have any questions regarding this report, please contact the number below. For patients who have questions, please contact the health lawn caretaker that requested your imaging first. Meghan Cardozo [facility] Dept Chair - Rad Electronically Signed Final Report 09/26/2020 11:56 am Molly Wallis APRN IMG US GEN ORDERAB LES documented in this encounter Visit Diagnoses Diagnosis Hepatic cirrhosis, unspecified hepatic cirrhosis type, unspecified whether ascites present Hepatic cirrhosis, unspecified hepatic cirrhosis type, unspecified whether ascites present documented in this encounter Care Teams Gathering Machine Feeder Relationship Specialty Start Date End Date Saloem Mcarthur APRN [address] [place] [address] PCP - General Family Medicine 05/30/15 12/11/23 documented as of this encounter
--- OUTSIDE RECORDS SUMMARY | 2024-05-18 16:58 | XMS_ITS | Encounter Summary ---
Author Organization [facility] [place] [address] Care Team Providers Care Museum Technician Name Role Phone Salome Mcarthur APRN Primary Care Provider [phone] Reason for Referral * Diagnostic Test (Routine) - Closed Specialty Diagnoses / Procedures Referred By Contruth t Referred To Contact Radiology Diagnoses Hepatic cirrhosis, unspecified hepatic cirrhosis type, unspecified whether ascites present Procedures MRI Abdomen wwo Contrast (Generic) Molly Cui APRN [facility] [place] [address] [place] [address] Referral ID Status Reason Start Date Expiration Date V isits Requested Visits Authorized [id number] Closed Specialty Service Requested 03/12/2019 03/11/2020 1 1 Encounter Details Date Type Department Care Team (Late st Contact Info) Description 03/12/2019 12:30 PM EST Office [place] [address] Molly Cui BRICK POINTER [facility] [place] [address] Hepatic cirrhosis, unspecified hepatic cirrhosis [...] Refill ??? fluticasone propionate (FLONASE) 50 mcg/actuation [place], Suspension 1 spray daily. ??? pramipexole (MIRAPEX) [...] mouth every 4 hours as needed. ??? [place]-3 Fatty Acids-Vitamin E (FISH OIL) 1,000 mg [...] Cui APRN Section of Gastroenterology [place] [address] Copy: Salome Mcarthur APRN [address] / [place] [address] 25 of this 30 minute visit in [...] criteria and documentation are available online at https://www.acr.org/Clinical-Resources/Giuflcjga-oql-Znev-Systems/LI-RADS. This report utilizes LI-RADS version 2018. I [...] criteria and documentation are available online at https://www.acr.org/Clinical-Resources/Ttogroptp-pzn-Tqhm-Systems/LI-RADS.This report utilizes LI-RADS version 2018. I have personally reviewed the image(s) and the resident's interpretationand agree with the findings, Mat House at 10/30/2019 2:53 PM Thank you for letting us participate in the care of this patient. Forquestions regarding this report, please contact the number below. Electronically signed by: Mat House, [facility]([phone]), at 10/30/2019 2:53 PM Molly Cui APRN IMG MRI ORDERABLES * AFP tumor marker (10/29/2019 3:13 PM EDT) Alpha Fetoprotein 2.9 <=8.3 ng/mL [facility] Blood specimen (specimen) 10/29/2019 3:13 PM EDT 10/29/2019 3:22 PM EDT Narrative Resulting Agency Comment Spec In Lab Molly Cui APRN CHEMISTRY ORDERABL ES Performing Organization Address [facility] de Phone Number [facility] [place] [phone] * (ABNORMAL) Prothrombin Time (10/29/2019 3:13 PM [...] APRN HEMATOLOGY ORDERAB LES Performing Organization Address [facility] Co de Phone Number [facility] [place] [address] * (ABNORMAL) Comprehensive metabolic panel (non-fasting) (10/29/2019 [...] of body mass or the acutely ill. http://[employer]/DHMCnkf eGFR 98 >=60 mL/min/1. 73 m?? [facility] Comment: The eGFR was calculated using the CKD-EPI equation. As with all creatinine based estimates of kidney function, eGFR values calculated with the CKD-EPI equation are not accurate in patients with acute kidney failure, extremes of body mass or the acutely ill. http://[employer]/DHnkf Blood specimen (specimen) 10/29/2019 3:13 PM EDT 10/29/2019 3:22 PM EDT Narrative Resulting Agency Comment Spec In Lab Molly Cui APRN CHEMISTRY ORDERABL ES [facility] [place] [address] documented in this encounter Visit Diagnoses Diagnosis Hepatic cirrhosis, unspecified hepatic cirrhosis type, unspecified whether ascites present Hepatic cirrhosis, unspecified hepatic cirrhosis type, unspecified whether ascites present documented in this encounter Care Teams Museum Technician Relationship Specialty Start Date End Date Salome Mcarthur APRN [address] [place] [address] PCP - General Family Medicine 05/30/15 12/11/23 documented as of this encounter
--- OUTSIDE RECORDS SUMMARY | 2024-05-18 16:58 | XMS_ITS | Encounter Summary ---
Author Organization Formerly [facility], Later [facility] Address [facility] [place] [address] Care Team Providers Care Government Minister Name Role Phone Salome Mcarthur APRN Primary Care Provider [phone] Encounter Details Date Type Department Care Team (Latest Contact Info) Description 05/19/2020 10:31 AM EST - 05/19/2020 11:59 PM [facility] Hospital En[place] [id number] Molly Wallis PANEL COVERER [facility] [place] [address] Hepatic cirrhosis, unspecified hepatic cirrhosis type, unspecified [...] directed. 05/02/2020 fluticasone propionate (FLONASE) 50 mcg/actuation [place], Suspension 1 spray daily. pramipexole (MIRAPEX) 0.125 [...] 11:57 am) PATIENT INFO: ID #: ? [id number] ?: ??42 (79 yrs)(F) Name: ? MILKA MENDIETA ?Visit Date: 05/19/2020 11:19 am PERFORMED BY: Performed By: ? Gabi Mtz RDMS Attending: ?Perfecto GALLO, Alisha Carpio Resident: ? Tacho Guajardo MD Referred By: ?MOLLY WALLIS Secondary Phy.: ?? MOLLY WALLIS PANEL COVERER Location: ? [facility] SERVICE(S) PROVIDED: ??[facility]AB[facility]IM - Hepatology Protocol - Abdominal ? 63253 ??Limited Survey Single Organ or Quadrant - ??[id number] INDICATIONS: ??cirrhosis, screen for hcc ------ LIVER: [...] 05/19/2020 11:57 am) PATIENT INFO: ID #: [id number] : 42 (79 yrs)(F) Name: MILKA MENDIETA Visit Date: 05/19/2020 11:19 am PERFORMED BY: Performed By: Gabi Mtz RDMS Attending: Alisha Grove MD Resident: Tacho Guajardo MD Referred By: MOLLY WALLIS [facility] Phy.: MOLLY WALLIS APRN Location: [facility] SERVICE(S) PROVIDED: [facility] - Hepatology Protocol - Abdominal 13921 Limited Survey Single Organ or Quadrant - [id number] INDICATIONS: cirrhosis, screen for hcc ------ LIVER: [...] below. Electronically signed by: Alisha Grove MD, [facility] ([phone]), at 05/19/2020 11:51 AM Alisha Grove, Staff Physician Electronically Signed Final Report 05/19/2020 11:57 am Molly Wallis APRN IM US GEN ORDERAB LES documented in this encounter Visit Diagnoses Diagnosis Hepatic cirrhosis, unspecified hepatic cirrhosis type, unspecified whether ascites present documented in this encounter Care Teams Government Minister Relationship Specialty Start Date End Date Salome Mcarthur APRN [address] [place] [address] PCP - General Family Medicine 05/30/15 12/11/23 documented as of this encounter
--- OUTSIDE RECORDS SUMMARY | 2024-05-18 16:58 | XMS_ITS | Encounter Summary ---
Author Organization [facility] [place] [address] Care Team Providers Care Manager Project Name Role Phone Salome Mcarthur APRN Primary Care Provider [phone] Reason for Referral * Diagnostic Test (Routine) - Closed Specialty Diagnoses / Procedures Referred By Contac t Referred To Contact Radiology Diagnoses Hepatic cirrhosis, unspecified hepatic cirrhosis type, unspecified whether ascites present Procedures MRI Abdomen wwo Contrast (Generic) Molly Cui APRN [facility] [place] [address] [place] [address] Referral ID Status Reason Start Date Expiration Date V isits Requested Visits Authorized [id number] Closed Specialty Service Requested 03/12/2019 03/11/2020 1 1 Reason for Visit * Diagnostic Test (Routine) - Closed Specialty Diagnoses / Procedures Referred By Contac t Referred To Contact Radiology Diagnoses Hepatic cirrhosis, unspecified hepatic cirrhosis type, unspecified whether ascites present Procedures MRI Abdomen wwo Contrast (Generic) Molly Cui APRN [facility] [place] [address] [place] [address] Referral ID Status Reason Start Date Expiration Date V isits Requested Visits Authorized [id number] Closed Specialty Service Requested 03/12/2019 03/11/2020 1 1 Encounter Details Date Type Department Care Team (Latest Contact Info) Description 10/29/2019 3:21 PM EDT - 10/29/2019 11:59 PM EDT Hospital Encounter MRI [place] [facility] [place] [address] Molly Cui APRN [facility] [place] [address] Hepatic cirrhosis, unspecified hepatic cirrhosis type, unspecified [...] protection 06/06/2009 fluticasone propionate (FLONASE) 50 mcg/actuation [place], Suspension 1 spray daily. pramipexole (MIRAPEX) 0.125 [...] criteria and documentation are available online at https://www.acr.org/Clinical-Resources/Pschfchpj-jry-Vcfh-Systems/LI-RADS. This report utilizes LI-RADS version 2018. I [...] criteria and documentation are available online at https://www.acr.org/Clinical-Resources/Uezjqyshr-axf-Uszi-Systems/LI-RADS.This report utilizes LI-RADS version 2018. I have [...] mLs documented in this encounter Care Teams Manager Project Relationship Specialty Start Date End Date Salome Mcarthur APRN [address] [place] [address] PCP - General Family Medicine 05/30/15 12/11/23 documented as of this encounter
--- OUTSIDE RECORDS SUMMARY | 2024-05-18 16:58 | XMS_ITS | Encounter Summary ---
Author Organization [facility] [place] [address] Care Team Providers Care Tapping Machine Operator Automatic Name Role Phone Salome Mcarthur APRN Primary Care Provider [phone] Encounter Details Date Type Department Care Team (Latest Contact Info) Description 09/10/2018 12:35 PM EDT Laboratory Appointment Lab [address] [place] [phone] Hepatic cirrhosis, unspecified hepatic cirrhosis type, unspecified [...] 1:46 PM EDT) Neutrophil % 53.0 % [facility] Neutrophil Absolute 4.28 1.70 - 6.10 x10(3)/[facility] LABORATORY Lymph % 36.5 % [facility] Lymphocytes Abs 2.9 0.9 - 3.2 x10(3)/[facility] LABORATORY Monocyte % 7.6 % [facility] Monocyte Abs 0.6 0.3 - 0.9 x10(3)/[facility] LABORATORY Eos % 2.0 % [facility] Eosinophils Abs 0.2 0.0 - 0.4 x10(3)/[facility] LABORATORY Basophil % 0.5 % [facility] Baso Absolute 0.0 0.0 - 0.1 x10(3)/[facility] LABORATORY Immature Gran % 0.40 % [facility] Comment: Immature granulocytes(IG's)percentage and absolute count will include metamyelocytes, myelocytes, and promyelocytes. Blood smears from CBCs yielding IG's will be scanned manually for concordance. If this scan disagrees with the automated IG or if promyelocytes are noted, a manual differential will be performed. Immature Gran Absolute 0.03 0.00 - 0.04 x10(3)/[facility] LABORATORY Blood specimen (specimen) 09/10/2018 1:46 PM EDT 09/10/2018 2:00 PM EDT Narrative Resulting Agency Comment Spec In Lab Molly Cui PLANT SUPERVISOR HEMATOLOGY ORDERAB LES [facility] [place] [address] * (ABNORMAL) Hemogram (09/10/2018 1:46 PM EDT) Pathologist [facility] White Blood Cell 8.1 4.0 - 9.5 x10(3)/mc L [facility] Red Blood Cell 4.63 4.00 - 5.21 x10(6)/mc L [facility] Hemoglobin 14.6 11.7 - 15.5 gm/dL [facility] Hematocrit 43.3 35.7 - 45.8 % [facility] Mean Cell Volume 93.5 82.6 - 94.4 fL [facility] Mean Cell Hemoglobin 31.5 27.1 - 32.0 pg [facility] Mean Cell Hemoglobin Concentration 33.7 31.7 - 35.0 gm/dL [facility] Platelet 135(L) 145 - 357 x10(3)/mc L [facility] RDW Standard Deviation 44.0 37.0 - 46.0 [facility] RDW coefficient of variation 12.8 11.5 - 14.1 % [facility] Mean Platelet Volume 11.3 7.6 - 12.9 [facility] LABOR[facility]ORY NRBC% auto 0.0 % [facility] NRBC Absolute 0.000 0.000 - 0.000 x10(3)/mc L [facility] Blood specimen (specimen) 09/10/2018 1:46 PM EDT 09/10/2018 2:00 PM EDT Narrative Resulting Agency Comment Spec In Lab Molly Cui APRN HEMATOLOGY ORDERAB LES [facility] [place] [address] * (ABNORMAL) Comprehensive metabolic panel (non-fasting) (09/10/2018 1:46 PM EDT) [facility] Glucose 125 65 - 199 mg/dL [facility] Comment:Diabetes: >=200 mg/d L plus symptoms Blood Urea Nitrogen 18 8 - 18 mg/dL [facility] Creatinine 0.75 0.70 - 1.20 mg/dL [facility] Sodium 139 135 - 145 mmol/L [facility] Potassium 3.9 3.5 - 5.0 mmol/L [facility] Comment: Please note: ??Patients with WBC >100,000 may have falsely elevated Potassium levels. ??For accurate Potassium quantification in these patients send serum separator tube (gold top) for subsequent determinations. ??Contact the Clinical Chemistry Laboratory if there are any questions. Chloride 99 98 - 107 mmol/L [facility] Carbon Dioxide 26 22 - 31 mmol/L [facility] Anion Gap 14 5 - 15 mmol/L [facility] Calcium 10.5 8.5 - 10.5 mg/dL [facility] Protein, Total 7.9 6.1 - 8.0 gm/dL [facility] Albumin 4.7 3.2 - 5.2 gm/dL [facility] Aspartate Aminotransferase 39(H) 0 - 30 unit/L [facility] Alanine Aminotransferase 41(H) 0 - 30 unit/L [facility] Alkaline Phosphatase 69 40 - 104 unit/L [facility] Bilirubin, Total 0.7 0.2 - 1.3 mg/dL [facility] Est Glomerular Filtration Rate 77 >=60 mL/min/1. 73 m?? [facility] Comment: The eGFR was calculated using the CKD-EPI equation. As with all creatinine based estimates of kidney function, eGFR values calculated with the CKD-EPI equation are not accurate in patients with acute kidney failure, extremes of body mass or the acutely ill. http://[employer]/[facility] CITYnkf eGFR 89 >=60 mL/min/1. 73 m?? [facility] Comment: The eGFR was calculated using the CKD-EPI equation. As with all creatinine based estimates of kidney function, eGFR values calculated with the CKD-EPI equation are not accurate in patients with acute kidney failure, extremes of body mass or the acutely ill. http://[employer]/[facility] CITYnkf Blood specimen (specimen) 09/10/2018 1:46 PM EDT 09/10/2018 2:00 PM EDT Narrative Resulting Agency Comment Spec In Lab Molly Cui APRN CHEMISTRY ORDERABL ES Performing Organization Address [facility] Co de Phone Number [facility] [place] [address] * (ABNORMAL) Prothrombin Time (09/10/2018 1:46 PM EDT) Prothrombin Time 12.8(H) 9.4 - 12.5 sec [facility] APRN HEMATOLOGY ORDERAB LES Performing Organization Address [facility] Co de Phone Number [facility] [place] [address] documented in this encounter Visit Diagnoses Diagnosis Hepatic cirrhosis, unspecified hepatic cirrhosis type, unspecified whether ascites present documented in this encounter Care Teams Tapping Machine Operator Automatic Relationship Specialty Start Date End Date Salome Mcarthur APRN [address] [place] [address] PCP - General Family Medicine 05/30/15 12/11/23 documented as of this encounter
--- OUTSIDE RECORDS SUMMARY | 2024-05-18 16:58 | XMS_ITS | Encounter Summary ---
Author Organization [place] [address] Care Team Providers Care Piano Tuner Name Role Phone Salome Mcarthur APRN Primary Care Provider [phone] Encounter Details Date Type Department Care Team (Latest Contact Info) Description 02/26/2018 9:30 AM EST Laboratory Appointment Lab [address] [place] [phone] Hepatic cirrhosis, unspecified hepatic cirrhosis type, unspecified [...] 10:02 AM EST) Neutrophil % 57.5 % [facility] Neutrophil Absolute 3.52 1.70 - 6.10 x10(3)/[facility] LABORATORY Lymph % 31.0 % [facility] Lymphocytes Abs 1.9 0.9 - 3.2 x10(3)/[facility] LABORATORY Monocyte % 9.1 % [facility] Monocyte Abs 0.6 0.3 - 0.9 x10(3)/[facility] LABORATORY Eos % 1.6 % [facility] Eosinophils Abs 0.1 0.0 - 0.4 x10(3)/[facility] LABORATORY Basophil % 0.5 % [facility] Baso Absolute 0.0 0.0 - 0.1 x10(3)/[facility] LABORATORY Immature Gran % 0.30 % [facility] Comment: Immature granulocytes(IG's)percentage and absolute count will include metamyelocytes, myelocytes, and promyelocytes. Blood smears from CBCs yielding IG's will be scanned manually for concordance. If this scan disagrees with the automated IG or if promyelocytes are noted, a manual differential will be performed. Immature Gran Absolute 0.02 0.00 - 0.04 x10(3)/[facility] LABORATORY Blood specimen (specimen) 02/26/2018 10:02 AM EST 02/26/2018 10:15 AM EST Narrative Resulting Agency Comment Spec In Lab Molly Cui APRN HEMATOLOGY ORDERAB LES [facility] [place] [address] * (ABNORMAL) Hemogram (02/26/2018 10:02 AM EST) [facility] White Blood Cell 6.1 4.0 - 9.5 x10(3)/mc L [facility] Red Blood Cell 4.49 4.00 - 5.21 x10(6)/mc L [facility] Hemoglobin 14.1 11.7 - 15.5 gm/dL [facility] Hematocrit 41.4 35.7 - 45.8 % [facility] Mean Cell Volume 92.2 82.6 - 94.4 fL [facility] Mean Cell Hemoglobin 31.4 27.1 - 32.0 pg [facility] Mean Cell Hemoglobin Concentration 34.1 31.7 - 35.0 gm/dL [facility] Platelet 111(L) 145 - 357 x10(3)/mc L [facility] RDW Standard Deviation 42.4 37.0 - 46.0 fL [facility] RDW coefficient of variation 12.5 11.5 - 14.1 % [facility] Mean Platelet Volume 11.8 7.6 - 12.9 fL [facility] NRBC% auto 0.0 % [facility] NRBC Absolute 0.000 0.000 - 0.000 x10(3)/mc L [facility] Blood specimen (specimen) 02/26/2018 10:02 AM EST 02/26/2018 10:15 AM EST Narrative Resulting Agency Comment Spec In Lab Molly Cui APRN HEMATOLOGY ORDERAB LES [facility] [place] [address] * (ABNORMAL) Comprehensive metabolic panel (non-fasting) (02/26/2018 10:02 AM EST) [facility] Glucose 137 65 - 199 mg/dL [facility] Comment:Diabetes: >=200 mg/d L plus symptoms Blood Urea Nitrogen 20(H) 8 - 18 mg/dL [facility] Creatinine 0.64(L) 0.70 - 1.20 mg/dL [facility] Sodium 141 135 - 145 mmol/L [facility] Potassium 4.3 3.5 - 5.0 mmol/L [facility] Comment: Please note: ??Patients with WBC >100,000 may have falsely elevated Potassium levels. ??For accurate Potassium quantification in these patients send serum separator tube (gold top) for subsequent determinations. ??Contact the Clinical Chemistry Laboratory if there are any questions. Chloride 101 98 - 107 mmol/L [facility] Carbon Dioxide 24 22 - 31 mmol/L [facility] Anion Gap 16(H) 5 - 15 mmol/L [facility] Calcium 10.0 8.5 - 10.5 mg/dL [facility] Protein, Total 7.7 6.1 - 8.0 gm/dL [facility] Albumin 4.5 3.2 - 5.2 gm/dL [facility] Aspartate Aminotransferase 24 0 - 30 unit/L [facility] Alanine Aminotransferase 28 0 - 30 unit/L [facility] Alkaline Phosphatase 81 40 - 104 unit/L [facility] Bilirubin, Total 0.4 0.2 - 1.3 mg/dL [facility] Est Glomerular Filtration Rate 87 >=60 mL/min/1. 73 m?? [facility] Comment: The eGFR was calculated using the CKD-EPI equation. As with all creatinine based estimates of kidney function, eGFR values calculated with the CKD-EPI equation are not accurate in patients with acute kidney failure, extremes of body mass or the acutely ill. http://[employer]/DHnkf eGFR 100 >=60 mL/min/1. 73 m?? [facility] Comment: The eGFR was calculated using the CKD-EPI equation. As with all creatinine based estimates of kidney function, eGFR values calculated with the CKD-EPI equation are not accurate in patients with acute kidney failure, extremes of body mass or the acutely ill. [email or web address] Blood specimen (specimen) 02/26/2018 10:02 AM EST 02/26/2018 10:15 AM EST Narrative Resulting Agency Comment Spec In Lab Molly Cui APRN CHEMISTRY ORDERABL ES Performing Organization Address [facility] de Phone Number [facility] [place] [address] * Prothrombin Time (02/26/2018 10:02 AM EST) [...] ORDERAB LES Performing Organization Address [facility] de Phone Number [facility] [place] [address] * AFP tumor marker (02/26/2018 10:02 AM EST) Alpha Fetoprotein 4.3 <=8.3 ng/mL [facility] Blood specimen (specimen) 02/26/2018 10:02 AM EST 02/26/2018 10:15 AM EST Narrative Resulting Agency Comment Spec In Lab Molly Cui APRN CHEMISTRY ORDERABL ES Performing Organization Address [facility] [place] [address] documented in this encounter Visit Diagnoses Diagnosis Hepatic cirrhosis, unspecified hepatic cirrhosis type, unspecified whether ascites present NAFLD (nonalcoholic fatty liver disease) Other chronic nonalcoholic liver disease documented in this encounter Care Teams Piano Tuner Relationship Specialty Start Date End Date Salome Mcarthur APRN [address] [place] [address] PCP - General Family Medicine 05/30/15 12/11/23 documented as of this encounter
--- OUTSIDE RECORDS SUMMARY | 2024-05-18 16:58 | XMS_ITS | Encounter Summary ---
Author Organization [facility]ending [facility] [place] [address] Care Team Providers Care Brand Ambassadors Promotional Sales Name Role Phone Salome Mcarthur APRN Primary Care Provider [phone] Reason for Referral * Diagnostic Test (Routine) - Closed Specialty Diagnoses / Procedures Referred By Contac t Referred To Contact Radiology Diagnoses Hepatic cirrhosis, unspecified hepatic cirrhosis type, unspecified whether ascites present Procedures MRI Abdomen wwo Contrast (Generic) Molly Cui APRN [facility] [place] [address] [place] [address] Referral ID Status Reason Start Date Expiration Date V isits Requested Visits Authorized [id number] Closed Specialty Service Requested 02/26/2018 02/26/2019 1 1 Reason for Visit * Diagnostic Test (Routine) - Closed Specialty Diagnoses / Procedures Referred By Contac t Referred To Contact Radiology Diagnoses Hepatic cirrhosis, unspecified hepatic cirrhosis type, unspecified whether ascites present Procedures MRI Abdomen wwo Contrast (Generic) Molly Cui APRN [facility] [place] [address] [place] [address] Referral ID Status Reason Start Date Expiration Date V isits Requested Visits Authorized [id number] Closed Specialty Service Requested 02/26/2018 02/26/2019 1 1 Encounter Details Date Type Department Care Team (Latest Contact Info) Description 03/08/2018 10:57 AM EST - 03/08/2018 11:59 PM EST Hospital Encounter MRI at [facility], [place] [address] Molly Cui APRN [facility] [address] Hepatic cirrhosis, unspecified hepatic cirrhosis type, unspecified [...] once a day for kidney protection 06/06/2009 gabapentin (NEURONTIN) 600 mg Tablet Take 600 mg by mouth 2 times daily. metFORMIN (GLUCOPHAGE) 1,000 mg tablet Take 1,000 mg by mouth 2 times daily (with meals). fish oil-omega-3 fatty acids with vitamin E 1,000 mg Capsule Take 3,000 mg by mouth daily. multivitamin (THERAGRAN) tablet Take 1 tablet by mouth daily. rifAXIMin (XIFAXIN) 550 mg Tablet Take 1 [...] demonstrate a somewhat reticular pattern of high F0dosmxl intensity most pronounced in the inferior right [...] made given differences in technique. Recommend reference [facility] [place] report for management guidelines. [...] Thisreport utilizes LI-RADS version 2017. Molly Cui ISSUE CLERK IMG MRI ORDERABLES documented in this encounter [...] mLs documented in this encounter Care Teams Brand Ambassadors Promotional Sales Relationship Specialty Start Date End Date Salome Mcarthur APRN [address] [place] [address] PCP - General Family Medicine 05/30/15 12/11/23 documented as of this encounter
--- OUTSIDE RECORDS SUMMARY | 2024-05-18 16:58 | XMS_ITS | Encounter Summary ---
Author Organization [facility] [place] [address] Care Team Providers Care Pug Mill Operator Helper Name Role Phone Salome Mcarthur APRN Primary Care Provider +1 [phone] Encounter Details Date Type Department Care Team (Latest Contact Info) Description 10/29/2019 3:15 PM EDT Laboratory Appointment Lab [address] [place] [phone] Hepatic cirrhosis, unspecified hepatic cirrhosis type, unspecified [...] 3:13 PM EDT) Neutrophil % 55.9 % [facility] Neutrophil Absolute 4.08 1.70 - 6.10 x10(3)/[facility] Lymph % 33.9 % [facility] Lymphocytes Abs 2.5 0.9 - 3.2 x10(3)/[facility] Monocyte % 7.9 % [facility] Monocyte Abs 0.6 0.3 - 0.9 x10(3)/[facility] LABOR[facility]ORY Eos % 1.9 % [facility] Eosinophils Abs 0.1 0.0 - 0.4 x10(3)/[facility] Basophil % 0.3 % [facility] Baso Absolute 0.0 0.0 - 0.1 x10(3)/[facility] LABOR[facility]ORY Immature Gran % 0.10 % [facility] Comment: Immature granulocytes(IG's)percentage and absolute count will include metamyelocytes, myelocytes, and promyelocytes. Blood smears from CBCs yielding IG's will be scanned manually for concordance. If this scan disagrees with the automated IG or if promyelocytes are noted, a manual differential will be performed. Immature Gran Absolute 0.01 0.00 - 0.04 x10(3)/[facility] LABORATORY Blood specimen (specimen) 10/29/2019 3:13 PM EDT 10/29/2019 3:22 PM EDT Narrative Resulting Agency Comment Spec In Lab Molly Cui APRN HEMATOLOGY ORDERAB LES [facility] [place] [address] * (ABNORMAL) Hemogram (10/29/2019 3:13 PM EDT) [facility] White Blood Cell 7.3 4.0 - 9.5 x10(3)/mc L [facility] Red Blood Cell 4.42 4.00 - 5.21 x10(6)/mc L [facility] Hemoglobin 13.5 11.7 - 15.5 gm/dL [facility] Hematocrit 40.5 35.7 - 45.8 % [facility] Mean Cell Volume 91.6 82.6 - 94.4 fL [facility] Mean Cell Hemoglobin 30.5 27.1 - 32.0 pg [facility] Mean Cell Hemoglobin Concentration 33.3 31.7 - 35.0 gm/dL [facility] Platelet 122(L) 145 - 357 x10(3)/mc L [facility] RDW Standard Deviation 43.3 37.0 - 46.0 fL [facility] RDW coefficient of variation 12.9 11.5 - 14.1 % [facility] Mean Platelet Volume 11.3 7.6 - 12.9 fL [facility] NRBC% auto 0.0 % [facility] NRBC Absolute 0.000 0.000 - 0.000 x10(3)/mc L [facility] Blood specimen (specimen) 10/29/2019 3:13 PM EDT 10/29/2019 3:22 PM EDT Narrative Resulting Agency Comment Spec In Lab Molly Cui APRN HEMATOLOGY ORDERAB LES [facility] [place] [address] * (ABNORMAL) Comprehensive metabolic panel (non-fasting) (10/29/2019 3:13 PM EDT) Glucose 116 65 - 199 mg/dL [facility] Comment:Diabetes: >=200 mg/d L plus symptoms Blood Urea Nitrogen 19(H) 8 - 18 mg/dL [facility] Creatinine 0.67(L) 0.70 - 1.20 mg/dL [facility] [...] questions. Chloride 98 98 - 107 mmol/L [facility] Carbon Dioxide 27 22 - 31 mmol/L [facility] Anion Gap 15 5 - 15 mmol/L [facility] Calcium 9.9 8.5 - 10.5 mg/dL [facility] Protein, Total 7.0 6.1 - 8.0 gm/dL [facility] Albumin 4.4 3.2 - 5.2 gm/dL [facility] Aspartate Aminotransferase 28 0 - 30 unit/L [facility] Alanine Aminotransferase 37(H) 0 - 30 unit/L [facility] Alkaline Phosphatase 73 35 - 105 unit/L [facility] Bilirubin, Total 0.6 0.2 - 1.3 mg/dL [facility] Est Glomerular Filtration Rate 84 >=60 mL/min/1. 73 m?? [facility] Comment: The eGFR was calculated using the CKD-EPI equation. As with all creatinine based estimates of kidney function, eGFR values calculated with the CKD-EPI equation are not accurate in patients with acute kidney failure, extremes of body mass or the acutely ill. http://[employer]/DHMCnkf eGFR 98 >=60 mL/min/1. 73 m?? [facility] Comment: The eGFR was calculated using the CKD-EPI equation. As with all creatinine based estimates of kidney function, eGFR values calculated with the CKD-EPI equation are not accurate in patients with acute kidney failure, extremes of body mass or the acutely ill. http://[employer]/DHMCnkf Blood specimen (specimen) 10/29/2019 3:13 PM EDT 10/29/2019 3:22 PM EDT Narrative Resulting Agency Comment Spec In Lab Molly Cui APRN CHEMISTRY ORDERABL ES Performing Organization Address [facility] Co de Phone Number [facility] [place] [address] * AFP tumor marker (10/29/2019 3:13 PM EDT) Alpha Fetoprotein 2.9 <=8.3 ng/mL [facility] Blood specimen (specimen) 10/29/2019 3:13 PM EDT 10/29/2019 3:22 PM EDT Narrative Resulting Agency Comment Spec In Lab Molly Cui APRN CHEMISTRY ORDERABL ES Performing Organization Address [facility] Co de Phone Number [facility] [place] [address] * (ABNORMAL) Prothrombin Time (10/29/2019 3:13 PM EDT) Prothrombin Time 13.1(H) 9.4 - 12.5 sec [facility] [...] Comment Spec In Lab Molly A Basilia TOMBSTONE ERECTOR HELPER HEMATOLOGY ORDERAB LES [facility] [place] [address] documented in this encounter Visit Diagnoses Diagnosis Hepatic cirrhosis, unspecified hepatic cirrhosis type, unspecified whether ascites present documented in this encounter Care Teams Pug Mill Operator Helper Relationship Specialty Start Date End Date Salome Mcarthur, TOMBSTONE ERECTOR HELPER [address] [place] [address] PCP - General Family Medicine 05/30/15 12/11/23 documented as of this encounter
--- OUTSIDE RECORDS SUMMARY | 2024-05-18 16:59 | XMS_ITS | Encounter Summary ---
Author Organization [facility] Address [facility] [place] [address] Care Team Providers Care Bacteriologist Pharmaceutical Name Role Phone Salome Mcarthur APRN Primary Care Provider +1 [phone] Encounter Details Date Type Department Care Team (Late st Contact Info) Description 05/31/2016 External [place] [phone] Molly Cui TAILINGS MAN [facility] [place] [address] Social History Tobacco Use Types Packs/Day Years [...] on filedocumented in this encounter Care Teams Bacteriologist Pharmaceutical Relationship Specialty Start Date End Date Salome Mcarthur APRN [address] [place] [address] PCP - General Family Medicine 05/30/15 12/11/23 documented as of this encounter
--- OUTSIDE RECORDS SUMMARY | 2024-05-18 16:59 | XMS_ITS | Encounter Summary ---
Author Organization [facility] [place] [address] Care Team Providers Care Plate Conditioner Name Role Phone Salome Mcarthur APRN Primary Care Provider [phone] Reason for Visit * Reason Onset Date Comments Results 10/22/2017 Encounter Details Date Type Department Care Team (Late st Contact Info) Description 10/22/2017 Telephone [place] [phone] Jacque Gale, RN Results Social History Tobacco [...] results of recent CT- Her contact # [phone]- okay to leave . * Telephone Encounter - Jacque Gale RN - 10/22/2017 3:58 PM EDT Pt calling for results of chest CT performed on 10/18 at [facility]. documented in this encounter Plan of Treatment Not on file documented as of this encounter Visit Diagnoses Not on filedocumented in this encounter Care Teams Plate Conditioner Relationship Specialty Start Date End Date Salome Mcarthur, LORETO [address] [place] [address] PCP - General Family Medicine 05/30/15 12/11/23 documented as of this encounter
--- OUTSIDE RECORDS SUMMARY | 2024-05-18 16:59 | XMS_ITS | Encounter Summary ---
Author Organization [facility] [place] [address] Care Team Providers Care Speech Coach Name Role Phone Salome Mcarthur APRN Primary Care Provider [phone] Encounter Details Date Type Department Care Team (Late st Contact Info) Description 09/04/2017 Orders [place] [address] Evy Howard Social History Tobacco Use Types [...] on filedocumented in this encounter Care Teams Speech Coach Relationship Specialty Start Date End Date Salome Mcarthur APRN [address] [place] [address] PCP - General Family Medicine 05/30/15 12/11/23 documented as of this encounter
--- OUTSIDE RECORDS SUMMARY | 2024-05-18 16:59 | XMS_ITS | Encounter Summary ---
Author Organization [facility] Address [facility] [place] [address] Care Team Providers Care Hand Sewer Shoes Name Role Phone Salome Mcarthur APRN Primary Care Provider [phone] Reason for Visit * Reason Onset Date Comments Advice Only 09/14/2016 Encounter Details Date Type Department Care Team (Late st Contact Info) Description 09/14/2016 Telephone [place] [phone] Malika Cantrell nutrition teacher Only Social History Tobacco Use Types Packs/Day [...] on filedocumented in this encounter Care Teams Hand Sewer Shoes Relationship Specialty Start Date End Date Salome Mcarthur APRN [address] [place] [address] PCP - General Family Medicine 05/30/15 12/11/23 documented as of this encounter
--- OUTSIDE RECORDS SUMMARY | 2024-05-18 16:59 | XMS_ITS | Encounter Summary ---
Author Organization [facility] Address [facility] [place] [address] Care Team Providers Care Filling Separator Name Role Phone Salome Mcarthur APRN Primary Care Provider [phone] Reason for Visit * Reason Onset Date Comments Prior Authorization 02/27/2017 Encounter Details Date Type Department Care Team (Late st Contact Info) Description 02/27/2017 Telephone [place] [phone] Malika Cantrell RN Prior Authorization Social History [...] 4:42 PM EST Prior authorization submitted to [facility] via [id number] for Xifaxan 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
--- OUTSIDE RECORDS SUMMARY | 2024-05-18 16:59 | XMS_ITS | Encounter Summary ---
Author Organization [facility] [place] [address] Care Team Providers Care Internist Medical Doctor Md Name Role Phone Salome Mcarthur APRN Primary Care Provider [phone] Reason for Referral * Diagnostic Test (Routine) - Closed Specialty Diagnoses / Procedures Referred By Contac t Referred To Contact Radiology Diagnoses NAFLD (nonalcoholic fatty liver disease) Procedures MRI Abdomen wwo Contrast (Generic) Molly Cui APRN [facility] [place] [address] [place] [address] Referral ID Status Reason Start Date Expiration Date V isits Requested Visits Authorized [id number] Closed Specialty Service Requested 08/22/2017 08/22/2018 1 1 Reason for Visit * Diagnostic Test (Routine) - Closed Specialty Diagnoses / Procedures Referred By Contac t Referred To Contact Radiology Diagnoses NAFLD (nonalcoholic fatty liver disease) Procedures MRI Abdomen wwo Contrast (Generic) Molly Cui VP OF TECHNOLOGY [facility] [place] [address] [place] [address] Referral ID Status Reason Start Date Expiration Date V isits Requested Visits Authorized [id number] Closed Specialty Service Requested 08/22/2017 08/22/2018 1 1 Encounter Details Date Type Department Care Team (Latest Contact Info) Description 09/20/2017 2:41 PM EDT - 09/20/2017 11:59 PM EDT Hospital Encounter MRI at [facility] [place] [address] Molly Cui APRN [facility] [place] [address] NAFLD (nonalcoholic fatty liver disease) Discharge Disposition: [...] tablet Take 1 tablet by mouth daily. fluticasone (FLONASE) 50 mcg/actuation [place], Suspension 1 spray by Each Nare route [...] Resulting Agency Comment Unexpected Finding Molly Cui VP OF TECHNOLOGY IMG MRI ORDERABLES documented in this encounter [...] mLs documented in this encounter Care Teams Internist Medical Doctor Md Relationship Specialty Start Date End Date Salome Mcarthur, VP OF TECHNOLOGY [address] [place] [address] PCP - General Family Medicine 05/30/15 12/11/23 documented as of this encounter
--- OUTSIDE RECORDS SUMMARY | 2024-05-18 16:59 | XMS_ITS | Encounter Summary ---
Author Organization [facility] Address [facility] [place] [address] Care Team Providers Care Camouflage Specialist Name Role Phone Salome Mcarthur APRN Primary Care Provider [phone] [phone] Encounter Details Date Type Department Care Team (Latest Contact Info) Description 08/22/2017 9:14 AM EDT - 08/22/2017 11:59 PM EDT Hospital [place] [phone] Molly Wallis MOBILE HOME LOT UTILITY WORKER [facility] [place] [address] NAFLD (nonalcoholic fatty liver disease) Discharge Disposition: [...] by mouth daily. fluticasone (FLONASE) 50 mcg/actuation [place], Suspension 1 spray by Each Nare route [...] 12:24 pm) PATIENT INFO: ID #: ? [id number] ?: ??[birth year] (77 yrs) Name: ? MILKA MENDIETA ?Visit Date: 08/22/2017 09:52 am PERFORMED BY: Performed By: ? Mary HI, ??Lis Attending: ?Jaja GALLO, Sumi Kang Resident: ? Aryan GALLO, Estephanie Nolen Referred By: ?MOLLY WALLIS Secondary Phy.: ?? MOLLY WALLIS MOBILE HOME LOT UTILITY WORKER Location: ? [place] SERVICE(S) PROVIDED: ??UABD - Abdominal Complete Survey - [id number] INDICATIONS: ??Cirrhosis, survey for hepatoma COMPARISON: RUQ [...] Agency Comment Unexpected Finding Molly Wallis APRN [facility] US GEN ORDERAB LES documented in this encounter Visit Diagnoses Diagnosis NAFLD (nonalcoholic fatty liver disease) Other chronic nonalcoholic liver disease documented in this encounter Care Teams Camouflage Specialist Relationship Specialty Start Date End Date Salome Mcarthur APRN [address] [place] [address] PCP - General Family Medicine 05/30/15 12/11/23 documented as of this encounter
--- OUTSIDE RECORDS SUMMARY | 2024-05-18 16:59 | XMS_ITS | Encounter Summary ---
Author Organization [facility] [place] [address] Care Team Providers Care Greenhouse Worker Name Role Phone Salome Mcarthur APRN Primary Care Provider [phone] Reason for Visit * Reason Comments Follow-up Encounter Details Date Type Department Care Team (Late st Contact Info) Description 02/22/2017 1:00 PM EST Office [place] [phone] Lani Wallis APRN [facility] [place] [address] NAFLD (nonalcoholic fatty liver disease) Social History [...] HEPATOLOGY Follow up Visit Nick Mendieta 1940 SCIENCE SPECIALIST: LANI WALLIS APRN PCP: Salome Mcarthur APRN [...] mouth every 4 hours as needed. ??? [place]-3 Fatty Acids-Vitamin E (FISH OIL) 1,000 mg [...] Wallis APRN Section of Gastroenter[place] [address] Copy: Salome Mcarthur APRN [address] / [place] [address] 25 of this 30 minute visit in face to face discussion regarding disease, prognosis and treatment documented in this encounter Plan of Treatment Not on file documented as of this encounter Results * Prothrombin Time (08/22/2017 10:25 AM EDT) Prothrombin Time 11.7 9.4 - 12.5 sec [facility] International Normalization Ratio 1.0 [facility] Comment: An INR [...] Lab Lani Wallis LORETO HEMATOLOGY ORDERAB LES [facility] [place] [address] * (ABNORMAL) Comprehensive metabolic panel (non-fasting) (08/22/2017 10:25 AM EDT) Glucose 163 65 - 199 mg/dL [facility] Comment:Diabetes: >=200 mg/d L plus symptoms Blood Urea Nitrogen 14 8 - 18 mg/dL [facility] Creatinine 0.57(L) 0.70 - 1.20 mg/dL [facility] Sodium 141 135 - 145 mmol/L [facility] Potassium 4.3 3.5 - 5.0 mmol/L [facility] Comment: Please note: ??Patients with WBC >100,000 may have falsely elevated Potassium levels. ??For accurate Potassium quantification in these patients send serum separator tube (gold top) for subsequent determinations. ??Contact the Clinical Chemistry Laboratory if there are any questions. Chloride 99 98 - 107 mmol/L [facility] Carbon Dioxide 28 22 - 31 mmol/L [facility] Anion Gap 14 5 - 15 mmol/L [facility] Calcium 10.3 8.5 - 10.5 mg/dL [facility] Protein, Total 7.4 6.1 - 8.0 gm/dL [facility] Albumin 5.0 3.2 - 5.2 gm/dL [facility] Aspartate Aminotransferase 30 0 - 30 unit/L [facility] Alanine Aminotransferase 32(H) 0 - 30 unit/L [facility] Alkaline Phosphatase 72 40 - 104 unit/L [facility] Bilirubin, Total 0.5 0.2 - 1.3 mg/dL [facility] Est Glomerular Filtration Rate >60 >=60 [facility] Comment: The reported eGFR should be multiplied by 1.2 for patients. The MDRD is not an appropriate measure of renal function for patients with body mass extremes or in patients with acute kidney failure. http://official.fm.[employer]SQL/DHnkdep http://[employer]/DHMCnkf Blood specimen (specimen) 08/22/2017 10:25 AM EDT 08/22/2017 10:43 AM EDT Narrative Resulting Agency Comment Spec In Lab Lani Wallis EMERGENCY MEDICAL TECHNICIAN BASIC CHEMISTRY ORDERABL ES Performing Organization Address City/State/[facility] Co de Phone Number [facility] [place] [address] * (ABNORMAL) US Abdomen Complete (08/22/2017 9:54 [...] 12:24 pm) PATIENT INFO: ID #: ? [id number] ?: ??[birth year] (77 yrs) Name: ? NICK MENDIETA ?Visit Date: 08/22/2017 09:52 am PERFORMED BY: Performed By: ? Mary HI, ??Lis Attending: ?Jaja GALLO, Sumi Kang Resident: ? Aryan GALLO, Estephanie Nolen Referred By: ?LANI WALLIS Secondary Phy.: ?? LANI WALLIS EMERGENCY MEDICAL TECHNICIAN BASIC Location: ? [place] SERVICE(S) PROVIDED: ??[facility] - Abdominal Complete Survey - [id number] INDICATIONS: ??Cirrhosis, survey for hepatoma COMPARISON: RUQ [...] Agency Comment Unexpected Finding Lani Wallis APRN IMG US GEN ORDERAB LES documented in this encounter Visit Diagnoses Diagnosis NAFLD (nonalcoholic fatty liver disease) Other chronic nonalcoholic liver disease NAFLD (nonalcoholic fatty liver disease) Other chronic nonalcoholic liver disease documented in this encounter Care Teams Greenhouse Worker Relationship Specialty Start Date End Date Salome Mcarthur APRN [address] [place] [address] PCP - General Family Medicine 05/30/15 12/11/23 documented as of this encounter
--- OUTSIDE RECORDS SUMMARY | 2024-05-18 16:59 | XMS_ITS | Encounter Summary ---
Author Organization [facility] Address [facility] [place] [address] Care Team Providers Care Granulator Name Role Phone Salome Mcarthur APRN Primary Care Provider +1 [phone] Encounter Details Date Type Department Care Team (Late st Contact Info) Description 03/05/2016 Telephone Gastroenterology at [facility] [place] [address] Whitney De Souza Social History [...] yes Patient's preferred method of communication: phone; [phone] documented in this encounter Plan of Treatment Not on file documented as of this encounter Visit Diagnoses Not on filedocumented in this encounter Care Teams Granulator Relationship Specialty Start Date End Date Salome Mcarthur APRN [address] [place] [address] PCP - General Family Medicine 05/30/15 12/11/23 documented as of this encounter
--- OUTSIDE RECORDS SUMMARY | 2024-05-18 16:59 | XMS_ITS | Encounter Summary ---
Author Organization [facility] Address [facility] [place] [address] Care Team Providers Care Construction Tech Name Role Phone Salome Mcarthur APRN Primary Care Provider +1 [phone] Encounter Details Date Type Department Care Team (Late st Contact Info) Description 08/26/2017 Telephone [place] [phone] Molly Wallis APRN [facility] [place] [address] Social History Tobacco Use Types Packs/Day Years [...] do MRI to further evaluate. Will ask corporate scheduler to reach out to patient to schedule MRI. Patient understands, answered all questions. MOLLY WALLIS APRN documented in this encounter Plan of Treatment Not on file documented as of this encounter Visit Diagnoses Not on filedocumented in this encounter Care Teams Construction Tech Relationship Specialty Start Date End Date Salome Mcarthur APRN [address] [place] [address] PCP - General Family Medicine 05/30/15 12/11/23 documented as of this encounter
--- OUTSIDE RECORDS SUMMARY | 2024-05-18 16:59 | XMS_ITS | Encounter Summary ---
Author Organization [facility] Address [facility] [place] [address] Care Team Providers Care Crm Marketing Specialist Name Role Phone Salome Mcarthur APRN Primary Care Provider +1 [phone] Encounter Details Date Type Department Care Team (Late st Contact Info) Description 09/23/2017 Orders Only [place] [address] Molly Wallis APRN [facility] [place] [address] Lung nodule Social History Tobacco Use Types [...] 1-2 months, per patient preference Will ask learning designer to contact. MOLLY WALLIS APRN documented in this encounter Plan of Treatment Not on file documented as of this encounter Visit Diagnoses Diagnosis Lung nodule Solitary pulmonary nodule documented in this encounter Care Teams Crm Marketing Specialist Relationship Specialty Start Date End Date Salome Mcarthur, SPRAY DRIER OPERATOR HELPER [address] [place] [address] PCP - General Family Medicine 05/30/15 12/11/23 documented as of this encounter
--- OUTSIDE RECORDS SUMMARY | 2024-05-18 16:59 | XMS_ITS | Encounter Summary ---
Author Organization [facility] Address [facility] [place] [address] Care Team Providers Care Licensed Sales Producer Name Role Phone Salome Mcarthur APRN Primary Care Provider +1 [phone] Encounter Details Date Type Department Care Team (Latest Contact Info) Description 08/21/2016 10:30 AM EDT - 08/21/2016 11:59 PM EDT Hospital [place] [phone] Beti Hudson MD [facility] [place] [address] NAFLD (nonalcoholic fatty liver disease) Discharge Disposition: [...] tablet Take 1 tablet by mouth daily. cinnamon bark 500 mg Capsule Take by [...] 12:13 pm) PATIENT INFO: ID #: ? [id number] ? : 42 (76 yrs) Name: ? MILKA MENDIETA ? Visit Date:08/21/2016 11:21 am PERFORMED BY: Performed By: ? Aysha Forde RDMS Attending: ?Chapo GALLO, Dinh Butler Referred By: ?BETI HUDSON MD Secondary Phy.: ?? LANI WALLIS APRN Location: ? [place] SERVICE(S) PROVIDED: ??UABDCVASC - Abdominal Complete Survey with Vascular - 51948, 15201 ??[id number] INDICATIONS: ??Cirrhosis: survey for hepatocellular carcinoma, ??evaluate [...] Final 08/21/2016 12:13pm) PATIENT INFO: ID #: [id number] : 42 (76 yrs) Name: MILKA MENDIETA Visit Date:08/21/2016 11:21 am PERFORMED BY: Performed By: Aysha Forde RDMS Attending: Dinh Cowan MD Referred By: BETI HUDSON MD Secondary Phy.: LANI WALLIS APRN Location: [place] SERVICE(S) PROVIDED: UABDCVASC - Abdominal Complete Survey with Vascular - 57772, 41401 [id number] INDICATIONS: Cirrhosis: survey for hepatocellular carcinoma, evaluate [...] disease documented in this encounter Care Teams Licensed Sales Producer Relationship Specialty Start Date End Date Salome Mcarthur APRN [address] [place] [address] PCP - General Family Medicine 05/30/15 12/11/23 documented as of this encounter
--- OUTSIDE RECORDS SUMMARY | 2024-05-18 16:59 | XMS_ITS | Encounter Summary ---
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
--- OUTSIDE RECORDS SUMMARY | 2024-05-18 16:59 | XMS_ITS | Encounter Summary ---
Author Organization [facility] Address [facility] [place] [address] Care Team Providers Care Countersinker Name Role Phone Salome Mcarthur APRN Primary Care Provider Encounter Details Date Type Department Care Team (Latest Contact Info) Description 02/26/2018 8:42 AM EST - 02/26/2018 11:59 PM [facility] Hospital [place] [phone] Molly Wallis [facility] [place] [address] Hepatic cirrhosis, unspecified hepatic cirrhosis type, unspecified [...] 10:11 am) PATIENT INFO: ID #: ? [id number] ?: ??42 (77 yrs) Name: ? MILKA MENDIETA ?Visit Date: 02/26/2018 09:24 am PERFORMED BY: Performed By: ? Gabi Mtz RDMS Attending: ?Lily GALLO, Jean Claude Bianchi. Referred By: ?MOLLY WALLIS Location: ? [place] SERVICE(S) PROVIDED: ??UABDLIM - Abdominal Limited Survey Single ? 41529 ??Organ or Quadrant - [id number] INDICATIONS: ??Compensated cirrhosis, assess for HCC COMPARISON: [...] 02/26/2018 10:11 am) PATIENT INFO: ID #: [id number] : 42 (77 yrs) Name: MILKA MENDIETA Visit Date: 02/26/2018 09:24 am PERFORMED BY: Performed By: Gabi Mtz RDMS Attending: Jean Claude Bautista MD Referred By: MOLLY WALLIS Location: [place] SERVICE(S) PROVIDED: UABDLIM - Abdominal Limited Survey Single 19402 Organ or Quadrant - [id number] INDICATIONS: Compensated cirrhosis, assess for HCC COMPARISON: [...] Final Report 02/26/2018 10:11 am Molly Wallis PROCESS INSPECTOR IMG GEN ORDERAB LES documented in this encounter Visit Diagnoses Diagnosis Hepatic cirrhosis, unspecified hepatic cirrhosis type, unspecified whether ascites present documented in this encounter Care Teams Countersinker Relationship Specialty Start Date End Date Salome Mcarthur APRN [address] [place] [address] PCP - General Family Medicine 05/30/15 12/11/23 documented as of this encounter
--- OUTSIDE RECORDS SUMMARY | 2024-05-18 16:59 | XMS_ITS | Encounter Summary ---
Author Organization [facility] Address [facility] [place] [address] Care Team Providers Care Lawyer Name Role Phone Salome Mcarthur APRN Primary Care Provider Encounter Details Date Type Department Care Team (Latest Contact Info) Description 07/22/2015 8:04 AM EDT - 07/22/2015 11:59 PM EDT Hospital En[place] [phone] Tremaine Nesbitt MD [facility] [place] [address] NAFLD (nonalcoholic fatty liver disease); Cirrhosis of [...] tablet Take 1 tablet by mouth daily. fenofibrate (TRICOR) 145 mg Tablet Reported on [...] 04:17 pm) Patient Info ID #: ? [id number] ? : 42 (75 yrs) Name: ? MILKA Turner MENDIETA ? Visit Date:07/22/2015 09:18 am Performed By Performed By: ? Michelle Major RDMS Attending: ?Juliane GALLO, Meghan Ventura Associate: ?Nila GALLO, Mat Alvarado Referred By: ?TREMAINE NESBITT MD Service(s) Provided ??UABDCVASC - Abdominal Complete Survey with Vascular - 08235, 89393 ??[id number] Indications ??Cirrhosis: survey for hepatocellular carcinoma, ??evaluate [...] Final 08/03/2015 04:17pm) Patient Info ID #: [id number] : 42 (75 yrs) Name: MILKA MENDIETA Visit Date:07/22/2015 09:18 am Performed By Performed By: Michelle Major RDMS Attending: Meghan Cardozo MD Associate: Mat Dotson MD Referred By: TREMAINE NESBITT MD Service(s) Provided UABDCVASC - Abdominal Complete Survey with Vascular - 42068, 86445 [id number] Indications Cirrhosis: survey for hepatocellular carcinoma, evaluate [...] 08/03/2015 04:17 pm Tremaine Nesbitt MD IMG GEN ORDERABL ES documented in this encounter Visit Diagnoses Diagnosis NAFLD (nonalcoholic fatty liver disease) Other chronic nonalcoholic liver disease Cirrhosis of liver without ascites, unspecified hepatic cirrhosis type documented in this encounter Care Teams Lawyer Relationship Specialty Start Date End Date Salome Mcarthur APRN [address] [place] [address] PCP - General Family Medicine 05/30/15 12/11/23 documented as of this encounter
--- OUTSIDE RECORDS SUMMARY | 2024-05-18 16:59 | XMS_ITS | Encounter Summary ---
Author Organization [facility] [place] [address] Care Team Providers Care Throw Out Clerk Name Role Phone Salome Mcarthur APRN Primary Care Provider +1- [phone] Encounter Details Date Type Department Care Team (Late st Contact Info) Description 10/07/2017 Orders [place] [address] Evy Howard Social History Tobacco Use Types [...] on filedocumented in this encounter Care Teams Throw Out Clerk Relationship Specialty Start Date End Date Salome Mcarthur APRN [address] [place] [address] PCP - General Family Medicine 05/30/15 12/11/23 documented as of this encounter
--- OUTSIDE RECORDS SUMMARY | 2024-05-18 16:59 | XMS_ITS | Encounter Summary ---
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; NAFLD (nonalcoholic [...] * Differential, Automated (02/22/2017 9:29 AM EST) Pathologist [facility] Neutrophil % 57.3 % [facility] Neutrophil Absolute 4.25 1.70 - 6.10 x10(3)/[facility] LABORAT[facility] Lymph % 32.4 % [facility] Lymphocytes Abs 2.4 0.9 - 3.2 x10(3)/[facility] LABORATORY Monocyte % 7.9 % [facility] Monocyte Abs 0.6 0.3 - 0.9 x10(3)/[facility] LABORATORY Eos % 1.7 % [facility] Eosinophils Abs 0.1 0.0 - 0.4 x10(3)/[facility] Basophil % 0.4 % [facility] Baso Absolute 0.0 0.0 - 0.1 x10(3)/[facility] LABORAT[facility] Immature Gran % 0.30 % [facility] Comment: Immature granulocytes(IG's)percentage and absolute count will include metamyelocytes, myelocytes, and promyelocytes. Blood smears from CBCs yielding IG's will be scanned manually for concordance. If this scan disagrees with the automated IG or if promyelocytes are noted, a manual differential will be performed. Immature Gran Absolute 0.02 0.00 - 0.04 x10(3)/[facility] LABOR[facility] Blood specimen (specimen) 02/22/2017 9:29 AM EST 02/22/2017 9:33 AM EST Narrative Resulting Agency Comment Spec In Lab Molly Cui MANAGER OF PATIENT HEMATOLOGY ORDERAB LES [facility] [place] [address] * (ABNORMAL) Hemogram (02/22/2017 9:29 AM EST) Pathologist [facility] White Blood Cell 7.4 4.0 - 9.5 x10(3)/[facility] LABORATORY Red Blood Cell 4.49 4.00 - 5.21 x10(6)/mc L [facility] Hemoglobin 14.3 11.7 - 15.5 gm/dL [facility] Hematocrit 40.5 35.7 - 45.8 % [facility] Mean Cell Volume 90.2 82.6 - 94.4 fL [facility] Mean Cell Hemoglobin 31.8 27.1 - 32.0 pg [facility] Mean Cell Hemoglobin Concentration 35.3(H) 31.7 - 35.0 gm/dL [facility] Platelet 139(L) 145 - 357 x10(3)/mc L [facility] RDW Standard Deviation 40.0 37.0 - 46.0 fL [facility] RDW coefficient of variation 12.2 11.5 - 14.1 % [facility] Mean Platelet Volume 11.0 7.6 - 12.9 fL [facility] NRBC% auto 0.0 % [facility] NRBC Absolute 0.000 0.000 - 0.000 x10(3)/mc L [facility] Blood specimen (specimen) 02/22/2017 9:29 AM EST 02/22/2017 9:33 AM EST Narrative Resulting Agency Comment Spec In Lab Molly Cui APRN HEMATOLOGY ORDERAB LES Performing Organization Address City/State/[facility] Co de Phone Number [facility] [place] [address] * Prothrombin Time (02/22/2017 9:29 AM EST) Prothrombin Time 13.3 11.8 - 14.0 sec [facility] [...] Agency Comment Spec In Lab Molly Cui MANAGER OF PATIENT HEMATOLOGY ORDERAB LES [facility] [place] [address] * (ABNORMAL) Comprehensive metabolic panel (non-fasting) (02/22/2017 9:29 AM EST) Glucose 209(H) 65 - 199 mg/dL [facility] Comment:Diabetes: >=200 mg/d L plus symptoms Blood Urea Nitrogen 18 8 - 18 mg/dL [facility] Creatinine 0.64(L) 0.70 - 1.20 mg/dL [facility] Sodium 136 135 - 145 mmol/L [facility] Potassium 4.2 3.5 - 5.0 mmol/L [facility] Comment: Please note: ??Patients with WBC >100,000 may have falsely elevated Potassium levels. ??For accurate Potassium quantification in these patients send serum separator tube (gold top) for subsequent determinations. ??Contact the Clinical Chemistry Laboratory if there are any questions. Chloride 96(L) 98 - 107 mmol/L [facility] Carbon Dioxide 26 22 - 31 mmol/L [facility] Anion Gap 14 5 - 15 mmol/L [facility] Calcium 10.2 8.5 - 10.5 mg/dL [facility] Protein, Total 7.1 6.1 - 8.0 gm/dL [facility] Albumin 4.6 3.2 - 5.2 gm/dL [facility] Aspartate Aminotransferase 26 0 - 30 unit/L [facility] Alanine Aminotransferase 29 0 - 30 unit/L [facility] Alkaline Phosphatase 74 40 - 104 unit/L [facility] Bilirubin, Total 0.4 0.2 - 1.3 mg/dL [facility] Est Glomerular Filtration Rate >60 >=60 [facility] Comment: The reported eGFR should be multiplied by 1.2 for patients. The MDRD is not an appropriate measure of renal function for patients with body mass extremes or in patients with acute kidney failure. 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
--- OUTSIDE RECORDS SUMMARY | 2024-05-18 16:59 | XMS_ITS | Encounter Summary ---
Author Organization [facility] Address [facility] [place] [address] Care Team Providers Care Social Human Services Assistants Name Role Phone Salome Mcarthur APRN Primary Care Provider [phone] Encounter Details Date Type Department Care Team (Latest Contact Info) Description 02/22/2017 9:37 AM EST - 02/22/2017 11:59 PM [facility] Hospital [place] [phone] Molly Wallis SHRINKING MACHINE OPERATOR [facility] [place] [address] NAFLD (nonalcoholic fatty liver disease) Discharge Disposition: [...] 10:44 am) PATIENT INFO: ID #: ? [id number] ?: ??[birth year] (76 yrs) Name: ? MILKA MENDIETA ?Visit Date: 02/22/2017 10:24 am PERFORMED BY: Performed By: ? Macario HI, ??Debbi Attending: ?Betty GALLO, Marilee Ragsdale Referred By: ?MOLLY WALLIS Secondary Phy.: ?? MOLLY WALLIS SHRINKING MACHINE OPERATOR Location: ? [place] SERVICE(S) PROVIDED: ??UABDLIM - Abdominal Limited Survey Single ? 28586 ??Organ or Quadrant - [id number] INDICATIONS: ??Compensated cirrhosis, assess for HCC COMPARISON: [...] 02/22/2017 10:44 am) PATIENT INFO: ID #: [id number] : 42 (76 yrs) Name: MILKA MENDIETA Visit Date: 02/22/2017 10:24 am PERFORMED BY: Performed By: Debbi Sorto RDMS Attending: Marilee Hernández MD Referred By: MOLLY WALLIS Secondary Phy.: MOLLY WALLIS APRN Location: [place] SERVICE(S) PROVIDED: UABDLIM - Abdominal Limited Survey Single 26006 Organ or Quadrant - [id number] INDICATIONS: Compensated cirrhosis, assess for HCC COMPARISON: [...] disease documented in this encounter Care Teams Social Human Services Assistants Relationship Specialty Start Date End Date Salome Mcarthur APRN [address] [place] [address] PCP - General Family Medicine 05/30/15 12/11/23 documented as of this encounter
--- OUTSIDE RECORDS SUMMARY | 2024-05-18 16:59 | XMS_ITS | Encounter Summary ---
Author Organization [facility] Address [facility] [place] [address] Care Team Providers Care Human Resources Receptionist Name Role Phone Salome Mcarthur APRN Primary Care Provider +1 [phone] Encounter Details Date Type Department Care Team (Latest Contact Info) Description 10/17/2017 - 10/17/2017 11:59 PM EDT Hospital Encounter Radiology Library at [facility] [place] [address] [facility] [place] [address] Discharge Disposition: Home Social History Tobacco Use [...] by mouth daily. fluticasone (FLONASE) 50 mcg/actuation [place], Suspension 1 spray by Each Nare route [...] CT Chest (10/17/2017 12:00 AM EDT) Narrative [facility] - 10/21/2017 8:25 PM EDT This exam is for storage only and is auto-finalizing. Molly Cui APRN IMG FILM LIBRARY O RDERABLES Performing Organization Address City/State/[facility] Co de Phone Number [place], [place] documented in this encounter Visit Diagnoses Not on filedocumented in this encounter Care Teams Human Resources Receptionist Relationship Specialty Start Date End Date Salome Mcarthur APRN [address] [place] [address] PCP - General Family Medicine 05/30/15 12/11/23 documented as of this encounter
--- OUTSIDE RECORDS SUMMARY | 2024-05-18 16:59 | XMS_ITS | Encounter Summary ---
Author Organization [facility] [place] [address] Care Team Providers Care Bridge Inspector Name Role Phone Salome Mcarthur APRN Primary Care Provider [phone] Reason for Visit * Reason Onset Date Comments Cirrhosis 07/27/2015 Encounter Details Date Type Department Care Team (Late st Contact Info) Description 07/27/2015 Telephone [place] [address] Jacque Gale RN Cirrhosis Social History Tobacco [...] on filedocumented in this encounter Care Teams Bridge Inspector Relationship Specialty Start Date End Date Salome Mcarthur, LORETO [address] [place] [address] PCP - General Family Medicine 05/30/15 12/11/23 documented as of this encounter
--- OUTSIDE RECORDS SUMMARY | 2024-05-18 16:59 | XMS_ITS | Encounter Summary ---
Author Organization [facility] [place] [address] Care Team Providers Care Barrel Rifler Hook Name Role Phone Salome Mcarthur APRN Primary Care Provider [phone] Encounter Details Date Type Department Care Team (Latest Contact Info) Description 08/21/2016 12:55 PM EDT Laboratory Appointment Lab [address] [place] [address] NAFLD (nonalcoholic fatty liver disease) [...] 1:10 PM EDT) Neutrophil % 50.3 % [facility] Neutrophil Absolute 4.49 1.70 - 6.10 x10(3)/[facility] LABOR[facility] Lymph % 39.2 % [facility] Lymphocytes Abs 3.5(H) 0.9 - 3.2 x10(3)/[facility] LAB[facility] Monocyte % 8.0 % [facility] Monocyte Abs 0.7 0.3 - 0.9 x10(3)/[facility] LABOR[facility] Eos % 1.5 % [facility] Eosinophils Abs 0.1 0.0 - 0.4 x10(3)/[facility] Basophil % 0.8 % [facility] Baso Absolute 0.1 0.0 - 0.1 x10(3)/[facility] LABOR[facility] Immature Gran % 0.20 % [facility] Comment: Immature granulocytes(IG's)percentage and absolute count will include metamyelocytes, myelocytes, and promyelocytes. Blood smears from CBCs yielding IG's will be scanned manually for concordance. If this scan disagrees with the automated IG or if promyelocytes are noted, a manual differential will be performed. Immature Gran Absolute 0.02 0.00 - 0.04 x10(3)/[facility] LAB[facility] Blood specimen (specimen) 08/21/2016 1:10 PM EDT 08/21/2016 1:25 PM EDT Narrative Resulting Agency Comment Spec In Lab Beti Laureano MD HEMATOLOGY ORDERABLE S [facility] [place] [address] * Hemogram (08/21/2016 1:10 PM EDT) Pathologist [facility] White Blood Cell 8.9 4.0 - 9.5 x10(3)/[facility] LABORATORY Red Blood Cell 4.85 4.00 - 5.21 x10(6)/[facility] LABORATORY Hemoglobin 15.2 11.7 - 15.5 gm/dL [facility] Hematocrit 43.8 35.7 - 45.8 % [facility] Mean Cell Volume 90.3 82.6 - 94.4 fL [facility] Mean Cell Hemoglobin 31.3 27.1 - 32.0 pg [facility] Mean Cell Hemoglobin Concentration 34.7 31.7 - 35.0 gm/dL [facility] Platelet 162 145 - 357 x10(3)/[facility] LABORATORY RDW Standard Deviation 40.9 37.0 - 46.0 [facility] LABOR[facility] RDW coefficient of variation 12.5 11.5 - 14.1 % [facility] Mean Platelet Volume 11.6 7.6 - 12.9 fL [facility] NRBC% auto 0.0 % [facility] NRBC Absolute 0.000 0.000 - 0.000 x10(3)/[facility] LABORAT[facility] Blood specimen (specimen) 08/21/2016 1:10 PM EDT 08/21/2016 1:25 PM EDT Narrative Resulting Agency Comment Spec In Lab Beti Laureano MD HEMATOLOGY ORDERABLE S Performing Organization Address City/State/[facility] [[email or web address]] Co de Phone Number [facility] [place] [address] * Prothrombin Time (08/21/2016 1:10 PM EDT) Prothrombin Time 13.5 12.0 - 15.0 sec [facility] [...] 1.1 [facility] Blood specimen (specimen) 08/21/2016 1:10 PM EDT 08/21/2016 1:25 PM EDT Narrative Resulting Agency Comment Spec In Lab Beti Laureano MD HEMATOLOGY ORDERABLE S [facility] [place] [address] * (ABNORMAL) Comprehensive metabolic panel (non-fasting) (08/21/2016 1:10 PM EDT) Glucose 167 65 - 199 mg/dL [facility] Comment:Diabetes: >=200 mg/d L plus symptoms Blood Urea Nitrogen 18 8 - 18 mg/dL [facility] Creatinine 0.71 0.70 - 1.20 mg/dL [facility] Comment: Please note that the pediatric reference intervals supplied above were not validated at [facility]. Results from pediatric patients should be interpreted in conjunction to the patient's age, height and muscle mass. Sodium 139 135 - 145 mmol/L [facility] Potassium 4.4 3.5 - 5.0 mmol/L [facility] Comment: Please note: ??Patients with WBC >100,000 may have falsely elevated Potassium levels. ??For accurate Potassium quantification in these patients send serum separator tube (gold top) for subsequent determinations. ??Contact the Clinical Chemistry Laboratory if there are any questions. Chloride 95(L) 98 - 107 mmol/L [facility] Carbon Dioxide 28 22 - 31 mmol/L [facility] Anion Gap 16(H) 5 - 15 mmol/L [facility] Calcium 10.7(H) 8.5 - 10.5 mg/dL [facility] Protein, Total 7.7 6.1 - 8.0 gm/dL [facility] Albumin 5.0 3.2 - 5.2 gm/dL [facility] Aspartate Aminotransferase 32(H) 0 - 30 unit/L [facility] Alanine Aminotransferase 38(H) 0 - 30 unit/L [facility] Alkaline Phosphatase 60 40 - 104 unit/L [facility] Bilirubin, Total 0.7 [...] the following links into your internet browser. http://[employer]/DHnkdep http://[employer]/DHMCnkf Blood specimen (specimen) 08/21/2016 1:10 PM EDT 08/21/2016 1:25 PM EDT Narrative Resulting Agency Comment Spec In Lab Beti Laureano MD CHEMISTRY ORDERABLES [facility] [place] [address] documented in this encounter Visit Diagnoses Diagnosis NAFLD (nonalcoholic fatty liver disease) Other chronic nonalcoholic liver disease documented in this encounter Care Teams Barrel Rifler Hook Relationship Specialty Start Date End Date Salome Mcarthur APRN [address] [place] [address] PCP - General Family Medicine 05/30/15 12/11/23 documented as of this encounter
--- OUTSIDE RECORDS SUMMARY | 2024-05-18 16:59 | XMS_ITS | Encounter Summary ---
Author Organization [facility] [place] [address] Care Team Providers Care Vehicle Assembly Inspector Name Role Phone Salome Mcarthur APRN Primary Care Provider [phone] Reason for Visit * Reason Comments Follow-up Encounter Details Date Type Department Care Team (Late st Contact Info) Description 08/21/2016 3:30 PM EDT Office [place] [phone] Lani Wallis APRN [facility] [place] [address] NAFLD (nonalcoholic fatty liver disease) Social History [...] Progress Notes * Lani Wallis APRN - 08/21/2016 3:30 PM EDT HEPATOLOGY Follow up Visit Nick Mendieta 1940 DOCUMENT REVIEW SPECIALIST: LANI WALLIS APRN PCP: Salome Mcarthur [...] for the 08/21/16 encounter (Office Visit) with Lani Wallis APRN [...] mouth every 4 hours as needed. ??? [place]-3 Fatty Acids-Vitamin E (FISH OIL) 1,000 mg Cap Take 3,000 mg by mouth daily. ??? multivitamin (THERAGRAN) tablet Take 1 tablet by mouth daily. ??? amitriptyline (ELAVIL) 50 mg tablet Take 50 mg by mouth nightly. Current Facility-Administered Medications for the 08/21/16 encounter (Office Visit) with Lani Wallis APRN [...] Details as above. Dinh Cowan MD ASSESSMENT/PLAN Nick Mendieta is a 76 y.o. female [...] Wallis APRN Section of Gastroenterology [place] [address] Copy: Salome Mcarthur APRN 4 [facility] / [place] [address] 15 of this 30 minute visit in [...] 10:44 am) PATIENT INFO: ID #: ? [id number] ?: ??[birth year] (76 yrs) Name: ? NICK MENDIETA ?Visit Date: 02/22/2017 10:24 am PERFORMED BY: Performed By: ? Macario HI, ??Debbi Attending: ?Betty GALLO, Marilee Ragsdale Referred By: ?LANI WALLIS Secondary Phy.: ?? LANI WALLIS GALLERY ASSISTANT Location: ? [place] SERVICE(S) PROVIDED: ??UABDLIM - Abdominal Limited Survey Single ? 43765 ??Organ or Quadrant - [id number] INDICATIONS: ??Compensated cirrhosis, assess for HCC COMPARISON: [...] 02/22/2017 10:44 am) PATIENT INFO: ID #: [id number] : [birth year] (76 yrs) Name: NICK Turner MENDIETA Visit Date: 02/22/2017 10:24 am PERFORMED BY: Performed By: Debbi Sorto RDMS Attending: Marilee King MD Referred By: LANI WALLIS [facility] Phy.: LANI WALLIS APRN Location: [place] SERVICE(S) PROVIDED: UABDLIM - Abdominal Limited Survey Single 44550 Organ or Quadrant - [id number] INDICATIONS: Compensated cirrhosis, assess for HCC COMPARISON: [...] Electronically Signed Final Report 02/22/2017 10:44 am Lani Wallis APRN IMG US GEN ORDERAB LES documented in this encounter Visit Diagnoses Diagnosis NAFLD (nonalcoholic fatty liver disease) Other chronic nonalcoholic liver disease NAFLD (nonalcoholic fatty liver disease) Other chronic nonalcoholic liver disease documented in this encounter Care Teams Vehicle Assembly Inspector Relationship Specialty Start Date End Date Salome Mcarthur APRN [address] [place] [address] PCP - General Family Medicine 05/30/15 12/11/23 documented as of this encounter
--- OUTSIDE RECORDS SUMMARY | 2024-05-18 16:59 | XMS_ITS | Encounter Summary ---
Author Organization Count Includes [facility] Address [facility] [place] [address] Care Team Providers Care Manager Of Broadcast Content Name Role Phone Salome Mcarthur APRN Primary Care Provider [phone] Encounter Details Date Type Department Care Team (Late st Contact Info) Description 10/24/2017 Telephone [place] [phone] Molly Wallis APRN [facility] [place] [address] Social History Tobacco Use Types Packs/Day Years [...] MOLLY WALLIS APRN PCP: Salome Mcarthur APRN [phone] documented in this encounter Plan of Treatment Not on file documented as of this encounter Results * AFP tumor marker (02/26/2018 10:02 AM EST) Alpha Fetoprotein 4.3 <=8.3 ng/mL [facility] Blood specimen (specimen) 02/26/2018 10:02 AM EST 02/26/2018 10:15 AM EST Narrative Resulting Agency Comment Spec In Lab Molly Wallis APRN CHEMISTRY ORDERABL ES Performing Organization Address [place] Phone Number [facility] [place] [address] * Prothrombin Time (02/26/2018 10:02 AM EST) Pathologist [facility] Prothrombin Time 11.9 9.4 - 12.5 sec [facility] [...] Lab Molly Wallis APRN HEMATOLOGY ORDERAB LES Performing Organization Address [facility] Co de Phone Number [facility] [place] [address] * (ABNORMAL) Comprehensive metabolic panel (non-fasting) (02/26/2018 10:02 AM EST) Glucose 137 65 - 199 mg/dL [facility] Comment:Diabetes: >=200 mg/d L plus symptoms Blood Urea Nitrogen 20(H) 8 - 18 mg/dL [facility] Creatinine 0.64(L) 0.70 - 1.20 mg/dL [facility] Sodium 141 135 - 145 mmol/L [facility] [...] questions. Chloride 101 98 - 107 mmol/L [facility] Carbon Dioxide 24 22 - 31 mmol/L [facility] Anion Gap 16(H) 5 - 15 mmol/L [facility] Calcium 10.0 8.5 - 10.5 mg/dL [facility] Protein, Total 7.7 6.1 - 8.0 gm/dL [facility] Albumin 4.5 3.2 - 5.2 gm/dL [facility] Aspartate Aminotransferase 24 0 - 30 unit/L [facility] Alanine Aminotransferase 28 0 - 30 unit/L [facility] Alkaline Phosphatase 81 40 - 104 unit/L [facility] Bilirubin, Total 0.4 0.2 - 1.3 mg/dL [facility] Est Glomerular Filtration Rate 87 >=60 mL/min/1. 73 m?? [facility] Comment: The eGFR was calculated using the CKD-EPI equation. As with all creatinine based estimates of kidney function, eGFR values calculated with the CKD-EPI equation are not accurate in patients with acute kidney failure, extremes of body mass or the acutely ill. http://[employer]ide/[facility] EDMONDnkf eGFR 100 >=60 mL/min/1. 73 m?? [facility] Comment: The eGFR was calculated using the CKD-EPI equation. As with all creatinine based estimates of kidney function, eGFR values calculated with the CKD-EPI equation are not accurate in patients with acute kidney failure, extremes of body mass or the acutely ill. http://[employer]/[facility] EDMONDnkf Blood specimen (specimen) 02/26/2018 10:02 AM EST 02/26/2018 10:15 AM EST Narrative Resulting Agency Comment Spec In Lab Molly A Basilia LORETO CHEMISTRY ORDERABL ES [facility] [place] [address] * US Abdomen Limited (02/26/2018 9:27 AM [...] 10:11 am) PATIENT INFO: ID #: ? [id number] ?: ??[birth year] (77 yrs) Name: ? MILKA MENDIETA ?Visit Date: 02/26/2018 09:24 am PERFORMED BY: Performed By: ? Gabi Mtz RDMS Attending: ?Lily GALLO, Jean Claude [place] Referred By: ?MOLLY WALLIS Location: ? [place] SERVICE(S) PROVIDED: ??UABDLIM - Abdominal Limited Survey Single ? 38654 ??Organ or Quadrant - [id number] INDICATIONS: ??Compensated cirrhosis, assess for HCC COMPARISON: [...] 02/26/2018 10:11 am) PATIENT INFO: ID #: [id number] : [birth year] (77 yrs) Name: MILKA MENDIETA Visit Date: 02/26/2018 09:24 am PERFORMED BY: Performed By: Gabi Mtz RDMS Attending: Jean Claude Bautista MD Referred By: MOLLY WALLIS Location: [place] SERVICE(S) PROVIDED: UABDLIM - Abdominal Limited Survey Single 94884 Organ or Quadrant - [id number] INDICATIONS: Compensated cirrhosis, assess for HCC COMPARISON: [...] documented in this encounter Care Teams Manager Of Broadcast Content Relationship Specialty Start Date End Date Salome Mcarthur APRN [address] [place] [address] PCP - General Family Medicine 05/30/15 12/11/23 documented as of this encounter
--- OUTSIDE RECORDS SUMMARY | 2024-05-18 16:59 | XMS_ITS | Encounter Summary ---
Author Organization [facility] [place] [address] Care Team Providers Care Geophysical Computer Name Role Phone Salome Mcarthur APRN Primary Care Provider [phone] Encounter Details Date Type Department Care Team (Latest Contact Info) Description 08/22/2017 10:30 AM EDT Laboratory Appointment Lab [address] [place] [phone] NAFLD (nonalcoholic fatty liver disease) Social History [...] 10:25 AM EDT) Neutrophil % 52.1 % [facility] Neutrophil Absolute 2.92 1.70 - 6.10 x10(3)/[facility] Lymph % 35.9 % [facility] Lymphocytes Abs 2.0 0.9 - 3.2 x10(3)/[facility] Monocyte % 9.1 % [facility] Monocyte Abs 0.5 0.3 - 0.9 x10(3)/[facility] Eos % 1.8 % [facility] Eosinophils Abs 0.1 0.0 - 0.4 x10(3)/[facility] Basophil % 0.7 % [facility] Baso Absolute 0.0 0.0 - 0.1 x10(3)/[facility] Immature Gran % 0.40 % [facility] Comment: Immature granulocytes(IG's)percentage and absolute count will include metamyelocytes, myelocytes, and promyelocytes. Blood smears from CBCs yielding IG's will be scanned manually for concordance. If this scan disagrees with the automated IG or if promyelocytes are noted, a manual differential will be performed. Immature Gran Absolute 0.02 0.00 - 0.04 x10(3)/[facility] Blood specimen (specimen) 08/22/2017 10:25 AM EDT 08/22/2017 10:43 AM EDT Narrative Resulting Agency Comment Spec In Lab Molly Cui FINANCE PROFESSIONAL HEMATOLOGY ORDERAB LES [facility] [place] [address] * (ABNORMAL) Hemogram (08/22/2017 10:25 AM EDT) Pathologist [facility] White Blood Cell 5.6 4.0 - 9.5 x10(3)/ L [facility] Red Blood Cell 4.42 4.00 - 5.21 x10(6)/mc L [facility] Hemoglobin 14.0 11.7 - 15.5 gm/dL [facility] Hematocrit 40.5 35.7 - 45.8 % [facility] Mean Cell Volume 91.6 82.6 - 94.4 fL [facility] Mean Cell Hemoglobin 31.7 27.1 - 32.0 pg [facility] Mean Cell Hemoglobin Concentration 34.6 31.7 - 35.0 gm/dL [facility] Platelet 118(L) 145 - 357 x10(3)/ L [facility] RDW Standard Deviation 42.4 37.0 - 46.0 [facility] RDW coefficient of variation 12.6 11.5 - 14.1 % [facility] Mean Platelet Volume 11.9 7.6 - 12.9 fL [facility] NRBC% auto 0.0 % [facility] NRBC Absolute 0.000 0.000 - 0.000 x10(3)/[facility] Blood specimen (specimen) 08/22/2017 10:25 AM EDT 08/22/2017 10:43 AM EDT Narrative Resulting Agency Comment Spec In Lab Molly Cui APRN HEMATOLOGY ORDERAB LES Performing Organization Address City/State/[facility] Co de Phone Number [facility] [place] [address] * Prothrombin Time (08/22/2017 10:25 AM EDT) [...] Agency Comment Spec In Lab Molly Cui FINANCE PROFESSIONAL HEMATOLOGY ORDERAB LES [facility] [place] [address] * (ABNORMAL) Comprehensive metabolic panel (non-fasting) (08/22/2017 10:25 AM EDT) Glucose 163 65 - 199 mg/dL [facility] [...] or in patients with acute kidney failure. [email or web address] [email or web address] Blood specimen (specimen) 08/22/2017 10:25 AM EDT 08/22/2017 10:43 AM EDT Narrative Resulting Agency Comment Spec In Lab Molly Cui APRN CHEMISTRY ORDERABL ES [facility] [place] [id number] documented in this encounter Visit Diagnoses Diagnosis NAFLD (nonalcoholic fatty liver disease) Other chronic nonalcoholic liver disease documented in this encounter Care Teams Geophysical Computer Relationship Specialty Start Date End Date Salome Mcarthur APRN [address] [place] [address] PCP - General Family Medicine 05/30/15 12/11/23 documented as of this encounter
--- OUTSIDE RECORDS SUMMARY | 2024-05-18 16:59 | XMS_ITS | Encounter Summary ---
Author Organization [facility] [place] [address] Care Team Providers Care Utility Manager Name Role Phone Salome Mcarthur APRN Primary Care Provider [phone] Reason for Visit * Reason Comments Follow-up Encounter Details Date Type Department Care Team (Late st Contact Info) Description 02/15/2016 1:00 PM EST Office [place] [phone] Lani Wallis APRN [facility] [place] [address] NAFLD (nonalcoholic fatty liver disease) Social History [...] HEPATOLOGY Follow up Visit Nick Mendieta 1940 DRUG ABUSE RESISTANCE EDUCATION OFFICER: LANI WALLIS APRN PCP: Salome Mcarthur APRN [...] are patent with normal directional flow. Sumi Wlikinson MD Electronically Signed Final Report 02/15/2016 01:34 [...] Wallis APRN Section of [place] [address] Copy: Salome Mcarthur APRN [address] / [place] [address] 25 of this 30 minute visit in [...] * Prothrombin Time (08/21/2016 1:10 PM EDT) [facility] Prothrombin Time 13.5 12.0 - 15.0 sec [...] Lab Beti Hudson MD HEMATOLOGY ORDERABLE S [facility] [place] [address] * (ABNORMAL) Comprehensive metabolic panel (non-fasting) (08/21/2016 1:10 PM EDT) Pathologist [facility] Glucose 167 65 - 199 mg/dL [facility] Comment:Diabetes: >=200 mg/d L plus symptoms Blood Urea Nitrogen 18 8 - 18 mg/dL [facility] Creatinine 0.71 0.70 - 1.20 mg/dL [facility] Comment: Please note that the pediatric reference intervals supplied above were not validated at [facility]. Results from pediatric patients should be interpreted in conjunction to the patient's age, height and muscle mass. Sodium 139 135 - 145 mmol/L [facility] Potassium 4.4 3.5 - [...] the following links into your internet browser. [email or web address] Blood specimen (specimen) 08/21/2016 1:10 PM EDT 08/21/2016 1:25 PM EDT Narrative Resulting Agency Comment Spec In Lab Beti Sridevi MD CHEMISTRY ORDERABLES [facility] [place] [address] * US Abdomen Complete With Vascular (08/21/2016 [...] 12:13 pm) PATIENT INFO: ID #: ? [id number] ? : [birth year] (76 yrs) Name: ? NICK MENDIETA ? Visit Date:08/21/2016 11:21 am PERFORMED BY: Performed By: ? Aysha Forde RDMS Attending: ?Dinh Cowan MD Referred By: ?BETI HUDSON MD Secondary Phy.: ?? LANI WALLIS APRN Location: ? [place] SERVICE(S) PROVIDED: ??UABDCVASC - Abdominal Complete Survey with Vascular - 49312, 99283 ??[id number] INDICATIONS: ??Cirrhosis: survey for hepatocellular carcinoma, ??evaluate [...] Final 08/21/2016 12:13pm) PATIENT INFO: ID #: [id number] : [birth year] (76 yrs) Name: NICK MENDIETA Visit Date:08/21/2016 11:21 am PERFORMED BY: Performed By: Aysha Forde RDMS Attending: Dinh Cowan MD Referred By: BETI HUDSON MD Secondary Phy.: LANI WALLIS APRN Location: [place] SERVICE(S) PROVIDED: UABDCVASC - Abdominal Complete Survey with Vascular - 63762, 60356 [id number] INDICATIONS: Cirrhosis: survey for hepatocellular carcinoma, evaluate [...] disease documented in this encounter Care Teams Utility Manager Relationship Specialty Start Date End Date Salome Mcarthur, THERAPY DIRECTOR [address] [place] [address] PCP - General Family Medicine 05/30/15 12/11/23 documented as of this encounter
--- OUTSIDE RECORDS SUMMARY | 2024-05-18 16:59 | XMS_ITS | Encounter Summary ---
Author Organization [facility] [place] [address] Care Team Providers Care Arcade Attendant Name Role Phone Salome Mcarthur APRN Primary Care Provider [phone] Reason for Visit * Auth/Cert Specialty Diagnoses / Procedures Referred By Jose t Referred To Contact Diagnoses Fatty (change of) liver, not elsewhere classified Unspecified cirrhosis of liver Cirrhosis, varices screening (IVCS) Procedures PRO UPPER GI ENDOSCOPY, DIAGNOSTIC EGD, UPPER GI ENDOSCOPY Referral ID Status Reason Start Date Expiration Date Visits Re quested Visits Authorized [id number] 1 1 Encounter Details Date Type Department Care Team (Late st Contact Info) Description 07/14/2015 2:15 PM EDT - 07/14/2015 2:45 PM EDT [place] [address] Leticia Ashraf MD EGD, UPPER GI ENDOSCOPY [...] better as expected. Saturday-Saturday Same Day Endo [phone] Otherwise contact [phone] and ask to speak to the firer automatic stoker flight test data acquisition technician Follow-up care is a palomo part [...] Electronically signed by: Andrew Newman Gastroenterology Fellow [place] Pager [phone] 07/14/2015 documented in this encounter Plan of [...] Report (07/14/2015 3:04 PM EDT) Final Diagnosis [id number] ? Location: 4; 01; A The signing pathologist has (i) [...] sing: (T1) ??pps 07/18/2015 5:04 PM EDT [facility] GI Biopsy 07/14/2015 3:04 PM EDT 07/14/2015 3:04 PM EDT GI Biopsy 07/14/2015 3:04 PM EDT 07/14/2015 3:04 PM EDT Leticia Ashraf MD PATHOLOGY/CYTOLOGY O CORAL Performing Organization Address [facility] Co de Phone Number [facility] [place] [address] * Specimen to Pathology (surgical or derm) (07/14/2015 3:04 PM EDT) AP Specimen 07/14/2015 3:04 PM EDT 07/14/2015 3:04 PM EDT Narrative [facility] - 07/14/2015 3:04 PM EDT Specimen requisition ordered. ??Separate Pathology report to follow Leticia Ashraf MD PATHOLOGY/CYTOLOGY O CORAL Performing Organization Address [facility] Co de Phone Number [facility] [place] [address] * Specimen to Pathology (surgical or derm) (07/14/2015 3:04 PM EDT) AP Specimen 07/14/2015 3:04 PM EDT 07/14/2015 3:04 PM EDT Narrative [facility] - 07/14/2015 3:04 PM EDT Specimen requisition ordered. ??Separate Pathology report to follow Leticia Ashraf MD PATHOLOGY/CYTOLOGY O CORAL Performing Organization Address [facility] de Phone Number [facility] [place] [address] * POCT Fingerstick Glucose (07/14/2015 2:32 PM EDT) Glucose, POC 101 60 - 199 mg/dl 07/14/2015 2:32 PM EDT Leticia Ashraf MD POINT OF CARE TEST O RDERABLES * POCT Glucose (07/14/2015 2:29 PM EDT) Pathologist [facility] Glucose, POC 101 65 - 199 mg/dL [facility] Comment: Supplemental ranges: <140 mg/dL before meals <180 mg/dL all other times of the day Blood specimen (specimen) 07/14/2015 2:29 PM EDT 07/14/2015 2:29 PM EDT Leticia Ashraf MD POINT OF CARE TEST O RDERABLES Performing Organization Address [facility] de Phone Number [facility] [place] [address] * UPPER GI ENDOSCOPY (07/14/2015 2:20 PM EDT) [facility] UPPER GI ENDOSCOPY [facility] Endoscopy Patient Name: Milka Corbett ? Procedure Date: 07/14/2015 2:20 PM ? [facility]: [id number] ? Date of : 1940 ? Age: 75 ? Order #: [id number] ? Procedure: ? Upper GI endoscopy Indications: [...] PROVATION 07/14/2015 2:20 PM EDT Salome Mcarthur HEATING AND COOLING SYSTEMS ENGINEER GENERAL SURGICAL OR DERABLES PROVATION documented [...] multi-dose injection ONCE PRN, Starting on Melissa 47/16 at 1435, Until Melissa 416 at 1526, Intra-Operative (Intra-Procedure), Routine Given 07/14/2015 2:40 PM EDT 1 mg Given 07/14/2015 2:35 PM EDT 1 mg documented in this encounter Active and Recently Administered Medications Times are shown in EDT. Continuous Medication Order 07/12/2015 07/13/2015 07/14/2015 lactated ringers infusion (CANCELED) 100 mL/hr, Intravenous, CONTINUOUS, Starting on Melissa 416 at 1430, Until Melissa 16 at 1526, Endoscopy (Day of Procedure) 1430 (New Bag - Prov ider: Jessika Anand RN) PRN Medication Order 07/12/2015 07/13/2015 07/14/2015 benzocaine (TOPEX) 20 % oral spray (CANCELED) ONCE PRN, Starting on Melissa 4/16 at 1435, Until Melissa 16 at 1526, [...] injection (CANCELED) ONCE PRN, Starting on Melissa 4/7/16 at 1435, Until Melissa 4/16 at 1526, Intra-Operative (Intra-Procedure), Routine 1435 (Given - Provid er: Apoorva M Pepito, RN - Comment: see fentanyl same time)1440 (Given - Provider: Apoorva Beyer RN - Comment: see fentanyl same time) documented in this encounter Care Teams Arcade Attendant Relationship Specialty Start Date End Date Salome Mcarthur APRN [address] [place] [address] PCP - General Family Medicine 05/30/15 12/11/23 documented as of this encounter
--- OUTSIDE RECORDS SUMMARY | 2024-05-18 16:59 | XMS_ITS | Encounter Summary ---
Author Organization [facility] [place] [address] Care Team Providers Care Quality Improvement Analyst Name Role Phone Salome Mcarthur APRN Primary Care Provider [phone] Encounter Details Date Type Department Care Team (Latest Contact Info) Description 02/15/2016 2:00 PM EST Laboratory Appointment Lab [address] [place] [phone] NAFLD (nonalcoholic fatty liver disease); Cirrhosis of [...] 1:48 PM EST) Neutrophil % 58.4 % [facility] Neutrophil Absolute 3.07 1.70 - 6.10 x10(3)/[facility] Lymph % 30.9 % [facility] Lymphocytes Abs 1.6 0.9 - 3.2 x10(3)/[facility]OR[facility] Monocyte % 8.8 % [facility] Monocyte Abs 0.5 0.3 - 0.9 x10(3)/[facility]OR[facility] Eos % 1.3 % [facility] Eosinophils Abs 0.1 0.0 - 0.4 x10(3)/[facility] Basophil % 0.4 % [facility] Baso Absolute 0.0 0.0 - 0.1 x10(3)/[facility]OR[facility] Immature Gran % 0.20 % [facility] Comment: Immature granulocytes(IG's)percentage and absolute count will include metamyelocytes, myelocytes, and promyelocytes. Blood smears from CBCs yielding IG's will be scanned manually for concordance. If this scan disagrees with the automated IG or if promyelocytes are noted, a manual differential will be performed. Immature Gran Absolute 0.01 0.00 - 0.04 x10(3)/[facility] Blood specimen (specimen) 02/15/2016 1:48 PM EST 02/15/2016 1:52 PM EST Narrative Resulting Agency Comment Spec In Lab Irwin Rock MD HEMATOLOGY ORDERABL ES [facility] [place] [address] * (ABNORMAL) Hemogram (02/15/2016 1:48 PM EST) White Blood Cell 5.2 4.0 - 9.5 x10(3)/ L [facility] Red Blood Cell 4.56 4.00 - 5.21 x10(6)/ L [facility] Hemoglobin 13.8 11.7 - 15.5 gm/dL [facility] Hematocrit 41.2 35.7 - 45.8 % [facility] Mean Cell Volume 90.4 82.6 - 94.4 fL [facility] Mean Cell Hemoglobin 30.3 27.1 - 32.0 pg [facility] Mean Cell Hemoglobin Concentration 33.5 31.7 - 35.0 gm/dL [facility] Platelet 143(L) 145 - 357 x10(3)/[facility] LABORATORY RDW Standard Deviation 41.3 37.0 - 46.0 [facility] RDW coefficient of variation 12.5 11.5 - 14.1 % [facility] Mean Platelet Volume 11.1 7.6 - 12.9 fL [facility] NRBC% auto 0.0 % [facility] NRBC Absolute 0.000 0.000 - 0.000 x10(3)/[facility] Blood specimen (specimen) 02/15/2016 1:48 PM EST 02/15/2016 1:52 PM EST Narrative Resulting Agency Comment Spec In Lab Irwin Rock MD HEMATOLOGY ORDERABL ES [facility] [place] [address] * Prothrombin Time (02/15/2016 1:48 PM EST) Prothrombin Time 13.4 12.0 - 15.0 sec [facility] Comment: An [...] - 1.1 [facility] Blood specimen (specimen) 02/15/2016 1:48 PM EST 02/15/2016 1:52 PM EST Narrative Resulting Agency Comment Spec In Lab Irwin Rock MD HEMATOLOGY ORDERABL ES [facility] [place] [address] * (ABNORMAL) Comprehensive metabolic panel (non-fasting) (02/15/2016 1:48 PM EST) Glucose 205(H) 65 - 199 mg/dL [facility] Comment:Diabetes: >=200 mg/d L plus symptoms Blood Urea Nitrogen 15 8 - 18 mg/dL [facility] Creatinine 0.90 0.70 - 1.20 mg/dL [facility] Comment: Please note that the pediatric reference intervals supplied above were not validated at [facility]. Results from pediatric patients should be interpreted in conjunction to the patient's age, height and muscle mass. Sodium 141 135 - 145 mmol/L [facility] Potassium 4.0 3.5 - 5.0 mmol/L [facility] Comment: Please note: ??Patients with WBC >100,000 may have falsely elevated Potassium levels. ??For accurate Potassium quantification in these patients send serum separator tube (gold top) for subsequent determinations. ??Contact the Clinical Chemistry Laboratory if there are any questions. Chloride 98 98 - 107 mmol/L [facility] Carbon Dioxide 29 22 - 31 mmol/L [facility] Anion Gap 14 5 - 15 mmol/L [facility] Calcium 10.5 8.5 - 10.5 mg/dL [facility] Protein, Total 7.1 6.1 - 8.0 gm/dL [facility] Albumin 4.7 3.2 - 5.2 gm/dL [facility] Aspartate Aminotransferase 37(H) 0 - 30 unit/L [facility] Alanine Aminotransferase 31(H) 0 - 30 unit/L [facility] Alkaline Phosphatase 44 40 - 104 unit/L [facility] Bilirubin, Total 0.5 0.2 - 1.3 mg/dL [facility] Bilirubin, Direct 0.2 0.0 - 0.3 mg/dL [facility] Est Glomerular Filtration Rate >60 >=60 [facility] Comment: This estimated GFR [...] the following links into your internet browser. [email or web address] Blood specimen (specimen) 02/15/2016 1:48 PM EST 02/15/2016 1:52 PM EST Narrative Resulting Agency Comment Spec In Lab Irwin Rock MD CHEMISTRY ORDERABLE S Performing Organization Address City/State/[facility] Co de Phone Number [facility] [place] [address] documented in this encounter Visit Diagnoses Diagnosis NAFLD (nonalcoholic fatty liver disease) Other chronic nonalcoholic liver disease Cirrhosis of liver without ascites, unspecified hepatic cirrhosis type documented in this encounter Care Teams Quality Improvement Analyst Relationship Specialty Start Date End Date Salome Mcarthur APRN [address] [place] [address] PCP - General Family Medicine 05/30/15 12/11/23 documented as of this encounter
--- OUTSIDE RECORDS SUMMARY | 2024-05-18 16:59 | XMS_ITS | Encounter Summary ---
Author Organization [facility] Address [facility] [place] [address] Care Team Providers Care Electrical Machine Builder Name Role Phone Salome Mcarthur APRN Primary Care Provider [phone] Encounter Details Date Type Department Care Team (Late st Contact Info) Description 10/17/2017 External Results Gastroenterology at [facility] [place] [phone] Malika Cantrell RN Social History Tobacco Use [...] (10/17/2017) Alpha Fetoprotein 3.0 10/17/2017 Historical Provider EXTERNAL LAB AMINA RICH * CBC / CMP [...] International Normalization Ratio 1.0 10/17/2017 Historical Provider EXTERNAL LAB AMINA RICH documented in this encounter Visit Diagnoses Not on filedocumented in this encounter Care Teams Electrical Machine Builder Relationship Specialty Start Date End Date Salome Mcarthur, STUDENT AFFAIRS DEAN [address] [place] [address] PCP - General Family Medicine 05/30/15 12/11/23 documented as of this encounter
--- OUTSIDE RECORDS SUMMARY | 2024-05-18 16:59 | XMS_ITS | Encounter Summary ---
Author Organization [facility] [place] [address] Care Team Providers Care Truck Switcher Name Role Phone Salome Lopez APRN Primary Care Provider [phone] Reason for Visit * Reason Comments Follow-up Encounter Details Date Type Department Care Team (Late st Contact Info) Description 07/22/2015 10:00 AM EDT Office [place] [phone] Molly Wallis APRN [facility] [place] [address] NAFLD (nonalcoholic fatty liver disease) Social History [...] HEPATOLOGY Follow up Visit Milka Corbett 1940 PROBE OPERATOR: MOLLY WALLIS APRN PCP: SALOME LOPEZ [...] 100 mg by mouth as needed. ??? [place]-3 Fatty Acids-Vitamin E (FISH OIL) 1,000 mg [...] ?found in the gastric antrum. ?Hematin (altered blood/zumhdk-efggfq-lwtd material) ?was found in the gastric body. [...] Wallis APRN Section of Gastroenterology [place] [address] Copy: SALOME LOPEZ APRN [address] [facility] [address] [place] [phone] 25 of this 30 minute visit in face to face discussion regarding disease, prognosis and treatment documented in this encounter Plan of Treatment Not on file documented as of this encounter Visit Diagnoses Diagnosis NAFLD (nonalcoholic fatty liver disease) Other chronic nonalcoholic liver disease documented in this encounter Care Teams Truck Switcher Relationship Specialty Start Date End Date Salome Lopez APRN [address] [place] [address] PCP - General Family Medicine 05/30/15 12/11/23 documented as of this encounter
--- OUTSIDE RECORDS SUMMARY | 2024-05-18 16:59 | XMS_ITS | Encounter Summary ---
Author Organization [facility] [place] [address] Care Team Providers Care Recapper Name Role Phone Salome Mcarthur APRN Primary Care Provider [phone] Reason for Referral * Diagnostic Test (Routine) - Closed Specialty Diagnoses / Procedures Referred By Contruth bermudez Referred To Contact Radiology Diagnoses NAFLD (nonalcoholic fatty liver disease) Procedures MRI Abdomen wwo Contrast (Generic) Molly Cui APRN [facility] [place] [address] [place] [address] Referral ID Status Reason Start Date Expiration Date V isits Requested Visits Authorized [id number] Closed Specialty Service Requested 08/22/2017 08/22/2018 1 1 Reason for Visit * Reason Comments Follow-up Patient is here for a follow up labs. Encounter Details Date Type Department Care Team (Late st Contact Info) Description 08/22/2017 11:30 AM EDT Office Visit [place] [phone] Molly Cui [facility] [place] [address] NAFLD (nonalcoholic fatty liver disease) [...] mouth every 4 hours as needed. ??? [place]-3 Fatty Acids-Vitamin E (FISH OIL) 1,000 mg [...] Cui APRN Section of Gastroenterology [place] [address] Copy: Salome Mcarthur APRN 4 [facility] / [place] [phone] 25 of this 30 minute visit in [...] disease documented in this encounter Care Teams Recapper Relationship Specialty Start Date End Date Salome Mcarthur APRN [address] [address] PCP - General Family Medicine 05/30/15 12/11/23 documented as of this encounter
--- OUTSIDE RECORDS SUMMARY | 2024-05-18 16:59 | XMS_ITS | Encounter Summary ---
Author Organization [facility] Address [facility] [place] [address] Care Team Providers Care Primary Mill Roller Name Role Phone Salome Mcarthur APRN Primary Care Provider [phone] Encounter Details Date Type Department Care Team (Latest Contact Info) Description 02/15/2016 9:51 AM EST - 02/15/2016 11:59 PM [facility] Hospital En[place] [phone] Tremaine Nesbitt MD [facility] [place] [address] NAFLD (nonalcoholic fatty liver disease); Cirrhosis of [...] tablet Take 1 tablet by mouth daily. diphenhydrAMINE (BENADRYL) 25 mg Capsule Take [...] 01:34 pm) PATIENT INFO: ID #: ? [id number] ? : [birth year] (75 yrs) Name: ? MILKA MENDIETA ? Visit Date:02/15/2016 10:44 am PERFORMED BY: Performed By: ? Colton Coppola RDMS Attending: ?Jaja GALLO, Sumi Arriaza. Referred By: ?TREMAINE NESBITT MD Secondary Phy.: ?? LANI WALLIS APRN Location: ? [place] SERVICE(S) PROVIDED: ??UABDCVASC - Abdominal Complete Survey with Vascular - 12825, 98842 ??[id number] INDICATIONS: ??Cirrhosis: survey for Hepatocellular carcinoma, ??evaluate [...] Final 02/15/2016 01:34pm) PATIENT INFO: ID #: [id number] : [birth year] (75 yrs) Name: MILKA MENDIETA Visit Date:02/15/2016 10:44 am PERFORMED BY: Performed By: Colton Coppola RDMS Attending: Sumi Wilkinson MD Referred By: TREMAINE NESBITT MD Secondary Phy.: LANI WALLIS APRN Location: [place] SERVICE(S) PROVIDED: UABDCVASC - Abdominal Complete Survey with Vascular - 54426, [id number] INDICATIONS: Cirrhosis: survey for Hepatocellular carcinoma, evaluate [...] type documented in this encounter Care Teams Primary Mill Roller Relationship Specialty Start Date End Date Salome Mcarthur, CASHIER [address] [place] [address] PCP - General Family Medicine 05/30/15 12/11/23 documented as of this encounter
--- OUTSIDE RECORDS SUMMARY | 2024-05-18 16:59 | XMS_ITS | Encounter Summary ---
Author Organization [facility] Address [facility] [place] [address] Care Team Providers Care Certified Flight Instructor Name Role Phone Salome Mcarthur APRN Primary Care Provider [phone] Encounter Details Date Type Department Care Team (Late st Contact Info) Description 10/07/2017 Telephone [place] [phone] Evy Howard Social History Tobacco Use Types [...] local hospital. I have faxed order to [facility] and have asked them to call her to schedule. documented in this encounter Plan of Treatment Not on file documented as of this encounter Visit Diagnoses Not on filedocumented in this encounter Care Teams Certified Flight Instructor Relationship Specialty Start Date End Date Salome Mcarthur APRN [address] [place] [address] PCP - General Family Medicine 05/30/15 12/11/23 documented as of this encounter
--- OUTSIDE RECORDS SUMMARY | 2024-05-18 17:00 | XMS_ITS | Encounter Summary ---
Author Organization [facility] Address [address] [place] [address] Care Team Providers Care Accounting Policy Consultant Name Role Phone Salome Mcarthur NET DEVELOPER CONSULTANT Primary Care Provider [phone] Encounter Details Date Type Department Care Team (Late st Contact Info) Description 01/17/2021 Lab Requisition [facility] Pathology & Laboratory Medicine - [facility] [address] [place], [place] [phone] Outr Resulting Lab, Provider Social History Tobacco [...] 211 - 911 pg/mL 01/17/2021 21:53 EDT [facility] Blood VENOUS BLOOD / Unknown 01/17/2021 12:56 EDT 01/17/2021 21:02 EDT us Provider Outr Resulting Lab CHEMISTRY & BLOOD GA S ORDERABLES Final Result [facility] [address] [place] [address] documented in this encounter Visit Diagnoses Not on filedocumented in this encounter Care Teams Accounting Policy Consultant Relationship Specialty Start Date End Date Salome Mcarthur, NET DEVELOPER CONSULTANT [address] [place] [address] PCP - General 03/14/20 documented as of this encounter
--- OUTSIDE RECORDS SUMMARY | 2024-05-18 17:00 | XMS_ITS | Encounter Summary ---
Author Organization Health system Address [address] [place] [address] Care Team Providers Care Life Sciences Manager Name Role Phone Salome Mcarthur CAFETERIA CLERK Primary Care Provider [phone] Encounter Details Date Type Department Care Team (Late st Contact Info) Description 10/27/2020 Lab Requisition [facility] Pathology & Laboratory Medicine - [address] [phone] Outr Resulting Lab, Provider Social History Tobacco [...] Priority Date/Time Associated Diagnosis Comments ZZCOVID-19 TEST [facility] PCR Today 10/27/2020 10:45 EDT COVID-19 TESTING Routine 10/27/2020 10:4 5 EDT documented in this encounter Results * COVID-19 TEST [facility] PCR (10/27/2020 10:45 EDT) Swab ENTIRE NASOPHARYNX / Unknown 10/27/2020 10:45 EDT 10/28/2020 15:54 EDT us Provider Outr Resulting Lab MICROBIOLOGY - GENER AL ORDERABLES Final Result [facility] [address] [place] [address] * COVID-19 TESTING (10/27/2020 10:45 EDT) COVID-19 rt-PCR Result Negative Negative 10/29/2020 12:56 EDT [facility] Comment: This test has [...] performed using the damaso SARS-CoV-2 assay ([employer] on the Damaso 6800 System Performing Lab Damaso [address] [facility] 10/29/2020 12:56 EDT [facility] Swab 10/27/2020 10:4 5 EDT 10/28/2020 15:54 EDT us Provider Outr Resulting Lab MICROBIOLOGY - GENER AL ORDERABLES Final Result [facility] [address] [place] [address] documented in this encounter Visit Diagnoses Not on filedocumented in this encounter Care Teams Life Sciences Manager Relationship Specialty Start Date End Date Salome Mcarthur, CAFETERIA CLERK [address] [place] [address] PCP - General 03/14/20 documented as of this encounter
--- OUTSIDE RECORDS SUMMARY | 2024-05-18 17:00 | XMS_ITS | Referral Summary ---
Author Organization [facility] Address [address] [place] [address] Care Team Providers Care Pilot Teacher Name Role Phone Salome Mcarthur QUALITY TESTER Primary Care Provider Encounters Date Type Department Care Team Description 04/21/2024 Lab Requisition [facility] Pathology & Laboratory Medicine - [address] [address] Outr Resulting Lab, Provider from Last 3 Months Allergies Active Allergy [...] Additional Information Patient not taking.Reported on 03/16/2020 [place]-3 Fatty Acids-Vitamin E (FISH OIL) 1,000 mg [...] Active clobetasoL (TEMOVATE) 0.05 % cream 10/18/19 24 Active isosorbide MONOnitrate (IMDUR) 30 mg CR [...] incontinence 05/18/2011 Hypertensive disorder 03/09/2009 Diabetes mellitus ([facility]) 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 coli Negative Negative 04/21/2024 21:15 EST [facility] HN LAB CAMPYLOBACTER PCR Negative Negative 04/21/2024 21:15 EST [facility] Shiga Toxin PCR Negative Negative 21:15 EST [facility] Feces SPECIMEN FROM RECTUM / Unknown 04/20/2024 13:00 EST 04/21/2024 16:45 EST us Provider Outr Resulting Lab MICROBIOLOGY - GENER AL ORDERABLES Final Result Performing Organization Address City/State/[facility] Co de Phone Number [facility] [address] [place] [address] from Last 3 Months Insurance [facility] [employer] Advance Directives For more information, please contact: [phone] * Full Code (Latest Code Status on File) Date Activated Date Inactivated Comments 08/21/2011 16:46 08/22/2011 17:10 Care Teams Pilot Teacher Relationship Specialty Start Date End Date Salome Mcarthur NP [address] [place] [address] [facility] - General 03/14/20
--- OUTSIDE RECORDS SUMMARY | 2024-05-18 17:00 | XMS_ITS | Encounter Summary ---
Author Organization [facility] Address [address] [place] [address] Care Team Providers Care Family Practice Physician Assistant Name Role Phone Salome Mcarthur HORSE AND WAGON DRIVER Primary Care Provider [phone] Encounter Details Date Type Department Care Team (Latest Contact Info) Description 09/05/2023 Plan of Care Documentation [address] [id number] Social History Tobacco Use Types Packs/Day Years [...] dizziness when performing the left and right Hallpike-[place]. However, did not show nystagmus. She completed [...] for 4 weeks. Therapy Treatment to include: 31913 - Therapeutic Exercise, 27778 - Neuromuscular Re-education, 85017 - Canalith Repositioning, and 99632 - Therapeutic Activity Recommended Consults: None currently. [...] on filedocumented in this encounter Care Teams Family Practice Physician Assistant Relationship Specialty Start Date End Date Salome Mcarthur NP [address] [place] [address] PCP - General 03/14/20 documented as of this encounter
--- OUTSIDE RECORDS SUMMARY | 2024-05-18 17:00 | XMS_ITS | Encounter Summary ---
Author Organization [facility] Address [address] [place] [address] Care Team Providers Care Ware Cleaner Name Role Phone Salome Mcarthur OIL INSPECTOR Primary Care Provider [phone] Encounter Details Date Type Department Care Team (Latest Contact Info) Description 09/28/2021 Plan of Care Documentation [facility] Rehabilitation Therapy [address] [place] [phone] Social History Tobacco Use Types Packs/Day Years [...] Notes * Kal Clark, PT - 09/28/2021 0107 EDT Outpatient Rehab Plan of Care ASSESSMENT Therapy Diagnosis: BPPV, left posterior canalithiasis, 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 Problem List: Impaired balance, Need for an independent home exercise program and Vertigo Assessment: Pt presents with about 3 month onset of vertigo. She demonstrates mild impairments in her VOR response, possibly causing her impaired balance. Her main vertigo symptoms were elicited witha right Hallpike-[place] maneuver, and resolved in less than 5 [...] for 6 weeks Therapy Treatment to include: 25748 - Therapeutic Exercise, 53965 - Neuromuscular Re-education, 65903 - Canalith Repositioning and 30400 - Therapeutic Activity Recommended Consults: None currently [...] on filedocumented in this encounter Care Teams Ware Cleaner Relationship Specialty Start Date End Date Salome Mcarthur, JEIMY [address] [place] [address] PCP - General 03/14/20 documented as of this encounter
--- OUTSIDE RECORDS SUMMARY | 2024-05-18 17:00 | XMS_ITS | Encounter Summary ---
Author Organization Count Includes [facility] Address [facility] [place] [address] Care Team Providers Care Servomechanism Designer Name Role Phone Lizbet Zhang APRN Primary Care Provider + Encounter Details Date Type Department Care Team (Late st Contact Info) Description 07/12/2012 Telephone Obstetrics [place] [phone] Tina Norwood MD Social History Tobacco Use [...] was negative for malignancy. Plan/Instructions: No further block mason evaluation needed for this. TINA NORWOOD MD, PGY3 documented in this encounter Plan of Treatment Not on file documented as of this encounter Visit Diagnoses Not on filedocumented in this encounter Care Teams Servomechanism Designer Relationship Specialty Start Date End Date Lizbet Zhang APRN PCP - General 06/30/12 05/29/15 documented as of this encounter
--- OUTSIDE RECORDS SUMMARY | 2024-05-18 17:00 | XMS_ITS | Encounter Summary ---
Author Organization [facility] Address [facility] [place] [address] Care Team Providers Care Babbitter Name Role Phone Lizbet Zhang APRN Primary Care Provider + Reason for Visit * Reason Comments Establish Care Vaginal Discharge disc surgery - polyp s Encounter Details Date Type Department Care Team (Late st Contact Info) Description 07/08/2012 3:30 PM EDT Office Visit Obstetrics [place] [id number] Loulou Hamilton MD [facility] [place] [address] Vaginal lesion (Primary Dx); Hx of bladder [...] EDT REPRODUCTIVE MEDICINE NEW PATIENT CONSULT NOTE [place], [place] Tim Roque MD Professor and Chair Department of SURGICAL GARMENT ASSEMBLY SUPERVISOR Loulou Watson MD IVF/ART Bottom Buffer MD Josee Haas MD Elizabeth Todd, ARNP [...] and rectocele repair by a urologist at [facility]. This was done for urinary incontinence which has actually gotten worse over the last 2 years (especially at night) and she is awaiting an appointment with urology here at [facility] [place] for evaluation. Abdominal hysterectomy done in 1986 - for endometriosis. BIOMEDICAL SERVICE ENGINEER History: LMP 1986. Menarche age 15 q [...] 1955 ??? Cystocele repair 08/2011 at [facility] ??? Rectocele repair 08/2011 at [facility] ??? 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 Family History Problem Relation Age of Onset [...] will call patient with results. Otherwise, benign career counselor exam. If polyp negative for malignancy, no further BIOMEDICAL SERVICE ENGINEER evaluation or treatment recommended. Dr. Watson was [...] Procedure Name Priority Date/Time Associated Diagnosis Comments BIOMEDICAL SERVICE ENGINEER CYTOLOGY FINAL REPORT Routine 07/08/2012 8:27 PM EDT SURGICAL PATHOLOGY REPORT Routine 07/08/2012 5:37 PM EDT documented in this encounter Results * A And P Mechanic Cytology Final Report (07/08/2012 8:27 PM EDT) A And P Mechanic Cytology Final Report ? [facility] ? Provider: ?? MOE WATSON, ??Pt. Name: ?? NICK MENDIETA ?LOULOU ? Acc #: ?[id number] ?Pt. ? Col Date: ?? 07/08/2012 ?/Sex: ?1940,(72 years),Female ? Rec Date: ?? 07/08/2012 ?LOC: ?5L ? CYTOPATHOLOGY: ??BIOMEDICAL SERVICE ENGINEER ? ---Adequacy--- ? Specimen submitted is satisfactory. Vaginal Only. ? ---Cytopathologic Diagnosis--- ? NORMAL ? Negative for Intraepithelial Lesion or Malignancy (NILM). ? 07/09/12 ?? Screened by: ??LMY ??SLA ? 07/10/12 ?? Verified by: ??Alexander CT(ASCP), Stefany Rivera - ? Branch General Manager ? ---Clinical Information--- ? HPV Option: ? No HPV Testing ? Preparation: ?Liquid Based Pap ? Specimen Source: ?Vaginal only/LBP/Diagnostic ? LMP: ?Post menopausal, hx bladder cancer, new posterior ? wall bladder lesion ? Hormones?: ?No ? Hysterectomy?: ?Total Hysterectomy ?: ?No ?: ?No ? I.U.D.?: ?No ? Pelvic Radiation: ? No ? Prior BIOMEDICAL SERVICE ENGINEER Therapy?: ? No ? Hist Abnl Pap/Biopsy?: [...] ??For further ? information please contact the [facility] [place] Laboratory. ? Reference: ??Gunjan CS. ??Individual Small Group Instructor of Pap Smear Results. ??In: ? Rosy BS, Compa HH, ed. ??The Pap Smear. ??[place]: ??Pino, 2002: ? 71-77. [facility] 07/08/2012 8:27 PM EDT Loulou Watson MD PATHOLOGY/C YTOLOGY ORDERABLES [facility] * Surgical Pathology Report (07/08/2012 5:37 PM EDT) Surgical Pathology Report ? [facility] ? Provider: ?? MOE WATSON, ??Pt. Name: ?? NICK MENDIETA ?LOULOU ? Acc #: ?[id number] ?Pt. ? Col Date: ?? 07/08/2012 ?/Sex: [...] bladder documented in this encounter Care Teams Babbitter Relationship Specialty Start Date End Date Lizbet Zhang, SCRUM MASTER PCP - General 06/30/12 05/29/15 documented as of this encounter
--- OUTSIDE RECORDS SUMMARY | 2024-05-18 17:00 | XMS_ITS | Encounter Summary ---
Author Organization [facility] Address [facility] [place] [address] Care Team Providers Care Power House Engineer Name Role Phone Lyubov Salome Guaman APRN Primary Care Provider [phone] Encounter Details Date Type Department Care Team (Late st Contact Info) Description 02/08/2009 Orders Only Urology at [facility] [place] [address] Marvin Lord MD [facility] [place] [address] Social History Tobacco Use Types Packs/Day Years [...] 7:28 AM EST) Surgical Pathology Report [id number] ? Location: OPW The signing pathologist has (i) examined the relevant preparation(s) for the specimen(s) and (ii) rendered or confirmed the diagnosis(es). . ?Pathology Surgical Pathology Final Report Clinical Information Specimen Submitted: CONSULTATION CASE A - 4 slides labeled [id number], collection date 2008. B - 6 slides labeled [id number], collection date 01/18/2009. [id number] Report to: Anjel De La Torre MD Department of Pathology [facility] [address] [place], [place] ??[address] Gross Description [facility]'s pathology slide(s) are reviewed. ??Refer to Diagnosis and Specimen Submitted for specific case information. For the full text of the [facility] report(s) please refer to Non-DH Documentation Pathology in the Clinical Information System (CIS). Microscopic Description Slides reviewed, microscopic description not recorded. Diagnosis CONSULTATION CASE A - Outside slides labeled [id number], collection date 2008: ?1. 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 ?There is no evidence of dysplasia. ?2. ??Urinary bladder, inferior to main tumor, biopsy: ?Urothelial mucosa with chronic inflammation and reactive atypia. ?There is no evidence of dysplasia. B - Outside slides labeled [id number], collection date 01/18/2009: ?1. ??Bladder, left dome, biopsy: ?Non-invasive urothelial papillary carcinoma, low grade. ?Muscularis propria is not identified. ?2. ??Bladder, mid dome, biopsy: ?Non-invasive urothelial papillary carcinoma, low grade. ?Muscularis propria is not identified. ?3. ??Bladder, right dome, biopsy: ?Minute fragment of atypical urothelial mucosa. . Diagnosis CR-0 02/09/09 JLK 02/11/09 Verified by: ? Les GALLO, Luke ?Pathologist ?(Electronic Signature) The attending pathologist whose signature appears on this report has reviewed all diagnostic slides and has edited the gross and/or microscopic portion of the report in rendering the final pathologic diagnosis. JORY [facility] 02/08/2009 7:28 AM EST Marvin Lord MD PATHOLOGY/CYTOLOGY O RDERABLES [facility] documented in this encounter Visit Diagnoses Not on filedocumented in this encounter Care Teams Power House Engineer Relationship Specialty Start Date End Date Salome Mcarthur, LINING LAYER [address] [place] [address] PCP - General Family Medicine 05/30/15 12/11/23 documented as of this encounter
--- OUTSIDE RECORDS SUMMARY | 2024-05-18 17:00 | XMS_ITS | Encounter Summary ---
Author Organization [facility] Address [address] [place] [address] Care Team Providers Care District Manager In Training Name Role Phone Salome Mcarthur SUBASSEMBLY SUPERVISOR Primary Care Provider [phone] Reason for Visit * Reason Comments Oral Pain Encounter Details Date Type Department Care Team (Late st Contact Info) Description 08/04/2023 15:30 EDT Walk-In [address] [address] Tristan Santa, JEIMY [address] [facility] [address] [place] [address] Thrush, oral (Primary Dx) Social [...] the past. I did send it to [facility] so if they do not have it they can call and we can order else where or send in a different script. Follow-up with dentist related to ill fitting partials as you do have some irritated mucosa lining your lower partial on the left side. * Attachments The following attachments cannot be sent through Care Everywhere. * Candidiasis (Argentine) documented in this encounter Ordered Prescriptions Prescription [...] RN or in discussion with available provider (ARC AND GAS WELDER's and CCA's can defer to Charge Nurse to complete triage when appropriate) PCP: Salome Mcarthur * Tristan Santa NP - 08/04/2023 1530 EDT Images from the original note were not included. [facility] Chief Complaint(s): Oral Pain Assessment [...] day 07/15/2023 d-mannose 500 mg capsule daily. [employer] ULTRA2 METER 02/07/2023 [facility] ULTRA TEST test strips USE 1 STRIP VIA METER THREE TIMES A DAY DIRECTED 09/11/2022 atorvastatin (LIPITOR) 20 mg tablet TAKE 1 TABLET BY MOUTH AT NIGHT albuterol 90 mcg/actuation inhaler Inhale 2 puff using inhaler every four to six hours as needed added in this encounter Care Teams District Manager In Training Relationship Specialty Start Date End Date Salome Mcarthur, SUBASSEMBLY SUPERVISOR [address] [place] [address] PCP - General 03/14/20 documented as of this encounter
--- OUTSIDE RECORDS SUMMARY | 2024-05-18 17:00 | XMS_ITS | Encounter Summary ---
Author Organization [facility] Address [address] [place] [address] Care Team Providers Care Security Guard Name Role Phone Lizbet Zhang Primary Care Provider [phone] Encounter Details Date Type Department Care Team (Late st Contact Info) Description 01/15/2018 Historical Results Only [facility] Radiology Results [address] [place], [place] [id number] Ella Castle MD [address] [place] [phone] Social History Tobacco Use Types Packs/Day [...] on filedocumented in this encounter Care Teams Security Guard Relationship Specialty Start Date End Date Lizbet Zhang, STAFF SOFTWARE ENGINEER [address] [facility] [place] [address] PCP - General 02/24/13 03/13/20 documented as of this encounter
--- OUTSIDE RECORDS SUMMARY | 2024-05-18 17:00 | XMS_ITS | Encounter Summary ---
Author Organization [facility] [place] [address] Care Team Providers Care Ice Puller Name Role Phone Salome Mcarthur APRN Primary Care Provider [phone] Reason for Visit * Auth/Cert Specialty Diagnoses / Procedures Referred By Jose t Referred To Contact Diagnoses Fatty (change of) liver, not elsewhere classified Unspecified cirrhosis of liver Cirrhosis, varices screening (IVCS) Procedures PRO UPPER GI ENDOSCOPY, DIAGNOSTIC EGD, UPPER GI ENDOSCOPY Referral ID Status Reason Start Date Expiration Date Visits Re quested Visits Authorized [id number] 1 1 Encounter Details Date Type Department Care Team (Latest Contact Info) Description 07/14/2015 1:02 PM EDT - 07/14/2015 3:58 PM EDT Hospital En[place] [address] Leticia Ashraf MD Discharge Disposition: Home Social [...] better as expected. Saturday-Saturday Same Day Endo [phone] Otherwise contact [phone] and ask to speak to the head operator television engineer Follow-up care is a palomo part [...] Fellow [facility] Pager [phone] 07/14/2015 documented in this encounter Plan of [...] Report (07/14/2015 3:04 PM EDT) Final Diagnosis [id number] ? Location: 4T; EA01; A The signing [...] MD PATHOLOGY/CYTOLOGY O CORAL Performing Organization Address [facility] Co de Phone Number [facility] [place] [address] * Specimen to Pathology (surgical or derm) (07/14/2015 3:04 PM EDT) AP Specimen 07/14/2015 3:04 PM EDT 07/14/2015 3:04 PM EDT Narrative [facility] - 07/14/2015 3:04 PM EDT Specimen requisition ordered. ??Separate Pathology report to follow Leticia Ashraf MD PATHOLOGY/CYTOLOGY O CORAL Performing Organization Address [facility] Co de Phone Number [facility] [place] [address] * Specimen to Pathology (surgical or derm) (07/14/2015 3:04 PM EDT) AP Specimen 07/14/2015 3:04 PM EDT 07/14/2015 3:04 PM EDT Narrative [facility] - 07/14/2015 3:04 PM EDT Specimen requisition ordered. ??Separate Pathology report to follow Leticia Ashraf MD PATHOLOGY/CYTOLOGY O CORAL Performing Organization Address [facility]/ZIP Co de Phone Number [facility] [place] [address] * POCT Fingerstick Glucose (07/14/2015 2:32 PM [...] PM EDT 07/14/2015 2:29 PM EDT Leticia Ashrfa MD POINT OF CARE TEST O RDERABLES [facility] [place] [address] * UPPER GI ENDOSCOPY (07/14/2015 2:20 PM EDT) UPPER GI ENDOSCOPY [facility] Endoscopy Patient Name: Milka Corbett ? Procedure Date: 07/14/2015 2:20 PM ? N: [id number] ? Date of : 1940 ? Age: 75 ? Order #: [id number] ? Procedure: ? Upper GI endoscopy Indications: ? Screening procedure, Cirrhosis rule ? out esophageal varices Providers: ? Leticia Ashraf, Andrew Newman MD, ? Apoorva Beyer, Yaw Boyd, ? [...] PROVATION 07/14/2015 2:20 PM EDT Salome Mcarthur HEEL SEAT TRIMMER GENERAL SURGICAL OR DERABLES PROVATION documented in [...] 100 mL/hr, Intravenous, CONTINUOUS, Starting on Melissa 47/16 at 1430, Until Melissa 416 at 1526, Endoscopy (Day of Procedure) 1430 (New Bag - Prov ider: Jessika Anand RN) PRN Medication Order 07/12/2015 07/13/2015 07/14/2015 benzocaine (TOPEX) 20 % oral spray (CANCELED) ONCE PRN, Starting on Melissa 16 [...] time) documented in this encounter Care Teams Ice Puller Relationship Specialty Start Date End Date Salome Mcarthur APRN [address] [place] [address] PCP - General Family Medicine 05/30/15 12/11/23 documented as of this encounter
--- OUTSIDE RECORDS SUMMARY | 2024-05-18 17:00 | XMS_ITS | Encounter Summary ---
Author Organization [facility] Address [address] [place] [address] Care Team Providers Care Cable Worker Helper Name Role Phone Salome Mcarthur RUG DRYING MACHINE OPERATOR Primary Care Provider [phone] Encounter Details Date Type Department Care Team (Late st Contact Info) Description 10/17/2023 Documentation Visit [facility] - [address] [address] Kal lCark, PT [address] [place], [place] [id number] Social History Tobacco Use Types Packs/Day Years [...] Clark, PT - 10/17/2023 1517 EDT [facility] Out[facility] Services [phone] Physical Therapy Discharge Not Seen Recently Medical [...] on filedocumented in this encounter Care Teams Cable Worker Helper Relationship Specialty Start Date End Date Salome Mcarthur NP [address] [place] [address] PCP - General 03/14/20 documented as of this encounter
--- OUTSIDE RECORDS SUMMARY | 2024-05-18 17:00 | XMS_ITS | Encounter Summary ---
Author Organization [facility] Address [facility] [place] [address] Care Team Providers Care Group Contract Analyst Name Role Phone Lizbet Zhang APRN Primary Care Provider + Encounter Details Date Type Department Care Team (Late st Contact Info) Description 07/22/2012 11:00 AM EDT Office Visit Urology at [facility] [place] [phone] Urge incontinence (Primary Dx); Mixed incontinence Social [...] (male)(female) documented in this encounter Care Teams Group Contract Analyst Relationship Specialty Start Date End Date Lizbet Zhang APRN PCP - General 06/30/12 05/29/15 documented as of this encounter
--- OUTSIDE RECORDS SUMMARY | 2024-05-18 17:00 | XMS_ITS | Encounter Summary ---
Author Organization [facility] Address [address] [place] [address] Care Team Providers Care Stereotype Molder Name Role Phone Lizbet Zhang SPRING FORMER Primary Care Provider [phone] Salome Mcarthur BENZENE OPERATOR Primary Care Provider [phone] Encounter Details Date Type Department Care Team (Late st Contact Info) Description 08/19/2019 Lab Requisition [facility] Pathology & Laboratory Medicine - [address] [phone] Outr Resulting Lab, Provider Social History Tobacco [...] Priority Date/Time Associated Diagnosis Comments ZZCOVID-19 TEST [facility] PCR Today 08/19/2019 21:00 EDT COVID-19 TESTING Routine 08/19/2019 21:0 0 EDT documented in this encounter Results * COVID-19 TEST [facility] PCR (08/19/2019 21:00 EDT) Swab ENTIRE NASOPHARYNX / Unknown 08/19/2019 21:00 EDT 08/19/2019 23:27 EDT us Provider Outr Resulting Lab MICROBIOLOGY - GENER AL ORDERABLES Final Result Performing Organization Address City/[facility]/ZIP Co de Phone Number [facility] [address] [place] [address] * COVID-19 TESTING (08/19/2019 21:00 EDT) COVID-19 rt-PCR Result Negative Negative 08/20/2019 2:04 EDT [facility] Comment: This test has not [...] history, and epidemiological information. Performed on the [facility] Fusion instrument Performing Lab [facility] Hospital Lab 08/20/2019 2:04 EDT [facility] Swab ENTIRE NASOPHARYNX / Unknown 08/19/2019 21:00 EDT 08/19/2019 23:27 EDT us Provider Outr Resulting Lab MICROBIOLOGY - GENER AL ORDERABLES Final Result [facility] [address] [place] [address] documented in this encounter Visit Diagnoses Not on filedocumented in this encounter Care Teams Stereotype Molder Relationship Specialty Start Date End Date Lizbet Zhang FNP [address] [place] [address] PCP - General 02/24/13 03/13/20 Salome Mcarthur, JEIMY [address] [place] [address] PCP - General 03/14/20 documented as of this encounter
--- OUTSIDE RECORDS SUMMARY | 2024-05-18 17:00 | XMS_ITS | Encounter Summary ---
Author Organization [facility] Address [address] [place] [address] Care Team Providers Care Real Estate Investor Name Role Phone LeathaLizbet SOFTWARE ENGINEERING MANAGER Primary Care Provider [phone] Encounter Details Date Type Department Care Team (Latest Contact Info) Description 01/15/2018 15:25 EDT - 01/15/2018 23:59 EDT Hospital Encounter [facility] [address] [place] [address] Unknown, Provider, MD Discharge Disposition: Home or [...] 1 Tab by mouth daily before breakfast. Weimar-3 Fatty Acids-Vitamin E (FISH OIL) 1,000 mg [...] Code Departure Means Destination Home or Self Custodial documented in this encounter Plan of Treatment Not on file documented as of this encounter Visit Diagnoses Not on filedocumented in this encounter Care Teams Real Estate Investor Relationship Specialty Start Date End Date Lizbet Zhang FNP [address] [place] [address] PCP - General 02/24/13 03/13/20 documented as of this encounter
--- OUTSIDE RECORDS SUMMARY | 2024-05-18 17:00 | XMS_ITS | Encounter Summary ---
Author Organization [facility] Address [address] [place] [address] Care Team Providers Care Spring Coiler Name Role Phone Salome Mcarthur SCIENTIFIC SYSTEMS ANALYST Primary Care Provider [phone] Encounter Details Date Type Department Care Team (Late st Contact Info) Description 10/25/2021 Documentation Visit [facility] - [address] [address] Kal Clark, PT [address] [place], [place] [phone] Social History Tobacco Use Types Packs/Day Years [...] Clark, PT - 10/25/2021 1701 EDT [facility] Outpatient Rehabilitation Services [phone] Physical Therapy Discharge Not Seen Recently Medical [...] filedocumented in this encounter Care Teams Spring Coiler Relationship Specialty Start Date End Date Salome Mcarthur NP [address] [place] [address] PCP - General 03/14/20 documented as of this encounter
--- OUTSIDE RECORDS SUMMARY | 2024-05-18 17:00 | XMS_ITS | Encounter Summary ---
Author Organization [facility] Address [address] [place] [address] Care Team Providers Care Histotechnologist Supervisor Name Role Phone Salome Mcarthur BEHAVIORAL ANALYST Primary Care Provider [phone] Encounter Details Date Type Department Care Team (Late st Contact Info) Description 10/25/2023 Lab Requisition [facility] Pathology & Laboratory Medicine - [facility] [address] [place] [address] Outr Resulting Lab, Provider Social [...] Wendy Species Positive(A) Negative 10/26/19 12:46 EDT [facility] Wendy glabrata Positive(A) Negative 10/26/2023 12:46 EDT [facility] Trichomonas Vaginalis Negative Negative 10/26/2023 12:46 EDT [facility] BV (Bacterial vaginosis) Negative Negative 10/26/2023 12:46 EDT [facility] Swab VAGINAL STRUCTURE / Unknown 10/25/2023 11:00 EDT 10/25/2023 22:59 EDT us Provider Outr Resulting Lab MICROBIOLOGY - GENER AL ORDERABLES Final Result Performing Organization Address City/State/[facility] Co de Phone Number [facility] [address] [place] [phone] documented in this encounter Visit Diagnoses Not on filedocumented in this encounter Care Teams Histotechnologist Supervisor Relationship Specialty Start Date End Date Salome Mcarthur NP [address] [place] [address] PCP - General 03/14/20 documented as of this encounter
--- OUTSIDE RECORDS SUMMARY | 2024-05-18 17:00 | XMS_ITS | Encounter Summary ---
Author Organization [facility] Address [address] [place] [address] Care Team Providers Care Venereal Disease Control Head Name Role Phone Salome Mcarthur RETREADER Primary Care Provider [phone] Encounter Details Date Type Department Care Team (Latest Contact Info) Description 09/06/2022 Plan of Care Documentation [address] [phone] Social History Tobacco Use Types Packs/Day Years [...] today with positive dizziness with bilateral Hallpike [place] tests. However, nystagmus not noted. She does [...] for 6 weeks. Therapy Treatment to include: 40145 - Therapeutic Exercise, 50106 - Neuromuscular Re-education, 94976 - Canalith Repositioning and 23671 - Therapeutic Activity Recommended Consults: None currently Development of Plan of Care: Patient participated in development of plan of care today. Plan for next visit: Review the right Amanda for independence. Assess response to current exercises,and assess Hallpike-Leesburg again. If still has vertigo, may attempt [...] on filedocumented in this encounter Care Teams Venereal Disease Control Head Relationship Specialty Start Date End Date Salome Mcarthur RETREADER [address] [place] [address] PCP - General 03/14/20 documented as of this encounter
--- OUTSIDE RECORDS SUMMARY | 2024-05-18 17:00 | XMS_ITS | Encounter Summary ---
Author Organization [facility] Address [address] [place] [address] Care Team Providers Care Contact Center Engineer Name Role Phone Salome Mcarthur IS PROJECT MANAGER Primary Care Provider [phone] Reason for Visit * Reason Comments Wound Check Encounter Details Date Type Department Care Team (Late st Contact Info) Description 03/22/2020 10:45 EST Nurse Only [facility] Dermatology [address] [facility], [place] [address] Nurse, [facility] Dermatology Encounter for post surgical wound check [...] fibrin Drainage: scant serosanguineous Graft site: N/A Sherrill site: N/A Flap site: N/A PLAN: Wound [...] Primary documented in this encounter Care Teams Contact Center Engineer Relationship Specialty Start Date End Date Salome Mcarthur NP [address] [place] [address] PCP - General 03/14/20 documented as of this encounter
--- OUTSIDE RECORDS SUMMARY | 2024-05-18 17:00 | XMS_ITS | Encounter Summary ---
Author Organization [facility] Address [address] [place] [address] Care Team Providers Care Director Of Industrial Relations Name Role Phone Salome Mcarthur CLOUD ENGAGEMENT PARTNER Primary Care Provider [phone] Encounter Details Date Type Department Care Team (Late st Contact Info) Description 09/20/2022 Documentation Visit [facility] - [address] [id number] Kal Clark, PT [address] [place], [place] [id number] Social History Tobacco Use Types Packs/Day Years [...] Clark, PT - 09/20/2022 1049 EDT [facility] Outpatient Rehabilitation Services [phone] Physical Therapy Discharge Not Seen Recently Medical [...] in this encounter Care Teams Director Of Industrial Relations Relationship Specialty Start Date End Date Salome Mcarthur, JEIMY [address] [place] [address] PCP - General 03/14/20 documented as of this encounter
--- OUTSIDE RECORDS SUMMARY | 2024-05-18 17:00 | XMS_ITS | Encounter Summary ---
Author Organization [facility] Address [address] [place] [address] Care Team Providers Care Die Keeper Name Role Phone Salome Mcarthur MANAGER MASS Primary Care Provider [phone] Reason for Visit * Reason Onset Date Comments New/Evolving Symptoms 01/05/2022 Encounter Details Date Type Department Care Team (Late st Contact Info) Description 01/05/2022 Telephone [facility] [address] [facility], [place], [place] [address] Brittanie Ponce MD [address] [place] [address] [place] [phone] New/Evolving Symptoms Social History Tobacco Use Types [...] Sophia Lopez RN documented in this encounter Miscellaneous Notes [...] on filedocumented in this encounter Care Teams Die Keeper Relationship Specialty Start Date End Date Salome Mcarthur NP [address] [place] [address] PCP - General 03/14/20 documented as of this encounter
--- OUTSIDE RECORDS SUMMARY | 2024-05-18 17:00 | XMS_ITS | Encounter Summary ---
Author Organization [facility] Address [facility] [place] [address] Care Team Providers Care Solvent Station Attendant Name Role Phone Lizbet Galindo APRN Primary Care Provider + Encounter Details Date Type Department Care Team (Late st Contact Info) Description 10/22/2012 1:45 PM EDT [place] [id number] Sandra Beltrán MD [facility] [place] [address] Mixed incontinence (Primary Dx) Discharge Disposition: Home [...] am and minimal at night. 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
--- OUTSIDE RECORDS SUMMARY | 2024-05-18 17:00 | XMS_ITS | Encounter Summary ---
Author Organization [facility] Address [address] [place] [address] Care Team Providers Care Paper Sealer Name Role Phone Salome Mcarthur ORGANIZATIONAL PSYCHOLOGIST Primary Care Provider [phone] Reason for Visit * Reason Comments Rash Encounter Details Date Type Department Care Team (Late st Contact Info) Description 11/03/2023 9:30 EDT Walk-In [address] [id number] Jess Ferguson NP [address] [facility] [address] [place] [address] Intertrigo (Primary Dx) Social History [...] relief. * Jess Ferguson NP - 11/03/2023 6036 EDT [facility] Chief Complaint(s): Chief Complaint Patient [...] by mouth 2 times daily. 08/09/2023 lancets (ParallocityTOUCH DELICA PLUS LANCET) 30 gauge misc USE 1 LANCET THREE TIMES A DAY DIRECTED blood glucose meter (ParallocityTOUCH ULTRA2 METER) Use 1 unit as directed [...] syndrome. added in this encounter Care Teams Paper Sealer Relationship Specialty Start Date End Date Salome Mcarthur NP [address] [place] [address] PCP - General 03/14/20 documented as of this encounter
--- OUTSIDE RECORDS SUMMARY | 2024-05-18 17:00 | XMS_ITS | Encounter Summary ---
Author Organization [facility] Address [address] [place] [address] Care Team Providers Care Research Computing Specialist Name Role Phone Salome Mcarthur IT HELP DESK ANALYST Primary Care Provider [phone] Reason for Visit * Reason Comments Cough Chest Congestion Chest Pain Shortness of Breath Encounter Details Date Type Department Care Team (Late st Contact Info) Description 02/02/2024 12:30 EDT Walk-In [facility] [address] [place] [id number] Tristan Santa, IT HELP DESK ANALYST [address] [facility] [address] [place] [address] Acute cough (Primary Dx) Social [...] be sent through Care Everywhere. * Cough (Kyrgyz) documented in this encounter Ordered Prescriptions Prescription [...] Tristan Santa NP - 02/02/2024 1230 EDT [facility] [place] Express Care Chief [...] Cough Persistent from URI this past week [facility] Pittman Other considered diagnosis include: Respiratory:URI/Sinus [...] 12/03/2023 added in this encounter Care Teams Research Computing Specialist Relationship Specialty Start Date End Date Salome Mcarthur NP [address] [place] [address] PCP - General 03/14/20 documented as of this encounter
--- OUTSIDE RECORDS SUMMARY | 2024-05-18 17:00 | XMS_ITS | Encounter Summary ---
Author Organization [facility] Address [address] [place] [address] Care Team Providers Care Supervisor Force Adjustment Name Role Phone Salome Mcarthur MITER GRINDER OPERATOR Primary Care Provider [phone] Encounter Details Date Type Department Care Team [...] filedocumented in this encounter Care Teams Supervisor Force Adjustment Relationship Specialty Start Date End Date Salome Mcarthur, MITER GRINDER OPERATOR [address] [place] [address] PCP - General 03/14/20 documented as of this encounter
--- OUTSIDE RECORDS SUMMARY | 2024-05-18 17:00 | XMS_ITS | Encounter Summary ---
Author Organization [facility] Address [address] [place] [address] Care Team Providers Care Concrete Pointer Name Role Phone LaethaLizbet STERILIZATION TECH Primary Care Provider [phone] Encounter Details Date Type Department Care Team (Latest Contact Info) Description 10/17/2017 12:36 EDT - 10/17/2017 23:59 EDT Hospital Encounter [facility] [address] [place] [address] Unknown, Provider, MD Discharge Disposition: Home or [...] 1 Tab by mouth daily before breakfast. Galva-3 Fatty Acids-Vitamin E (FISH OIL) 1,000 mg [...] Code Departure Means Destination Home or Self Alf documented in this encounter Plan of Treatment Not on file documented as of this encounter Visit Diagnoses Not on filedocumented in this encounter Care Teams Concrete Pointer Relationship Specialty Start Date End Date Lizbet Zhang FNP [address] [place] [address] PCP - General 02/24/13 03/13/20 documented as of this encounter
--- OUTSIDE RECORDS SUMMARY | 2024-05-18 17:00 | XMS_ITS | Encounter Summary ---
Author Organization [facility] Address [address] [place] [address] Care Team Providers Care Stuffer Name Role Phone Salome Mcarthur END FINDER TWISTING DEPARTMENT Primary Care Provider [phone] Encounter Details Date Type Department Care Team (Latest Contact Info) Description 01/19/2022 Plan of Care Documentation [address] [address] Social History Tobacco Use Types Packs/Day Years [...] to 3 visits Therapy Treatment to include: 55035 - Hot Cold Pack, 37267 - Therapeutic Exercise, 51079 - Neuromuscular Re-education, 14922 - Manual Therapy, 38199 - Canalith Repositioning and 89935 - Therapeutic Activity Recommended Consults: None Development [...] on filedocumented in this encounter Care Teams Stuffer Relationship Specialty Start Date End Date Salome Mcarthur, END FINDER TWISTING DEPARTMENT [address] [place] [address] PCP - General 03/14/20 documented as of this encounter
--- OUTSIDE RECORDS SUMMARY | 2024-05-18 17:00 | XMS_ITS | Encounter Summary ---
Author Organization [facility] Address [facility] [place] [address] Care Team Providers Care Logistics Director Name Role Phone Lizbet Galindo APRN Primary Care Provider + Encounter Details Date Type Department Care Team (Late st Contact Info) Description 07/22/2012 10:15 AM EDT [place] [phone] Sandra Beltrán MD [facility] [place] [address] Mixed incontinence (Primary Dx) Discharge Disposition: Home [...] of Systems: General Health: Good. 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 [...] Appendectomy 1956 ??? Cystocele repair 08/[address] [facility] ??? Rectocele repair 08/[address] [facility] ??? Cholecystectomy, laparoscopic 1997 She has [...] (male)(female) documented in this encounter Care Teams Logistics Director Relationship Specialty Start Date End Date Lizbet Galindo APRN PCP - General 06/30/12 05/29/15 documented as of this encounter
--- OUTSIDE RECORDS SUMMARY | 2024-05-18 17:00 | XMS_ITS | Encounter Summary ---
Author Organization [facility] Address [address] [place] [address] Care Team Providers Care Pinion Sorter Name Role Phone Salome Mcarthur IMAGING ENGINEER Primary Care Provider [phone] Reason for Visit * Reason Onset Date Comments Appointment Related 02/21/2021 Encounter Details Date Type Department Care Team (Late st Contact Info) Description 02/21/2021 Telephone [facility] [place] [place] Re[facility] Services [address] [place], [place] [id number] Mallory Gallagher, PT [address] [place] [address] Appointment Related Social History Tobacco [...] on filedocumented in this encounter Care Teams Pinion Sorter Relationship Specialty Start Date End Date Salome Mcarthur, IMAGING ENGINEER [address] [place] [address] PCP - General 03/14/20 documented as of this encounter
--- OUTSIDE RECORDS SUMMARY | 2024-05-18 17:00 | XMS_ITS | Clinical Summary ---
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 Overview (03/09/2009): H/o - cxr IBS (irritable bowel syndrome) 03/09/2009 Hyperlipidemia 03/09/2009 Rosacea 03/09/2009 Restless legs syndrome 03/09/2009 Migraine 03/09/2009 Encounters Date Type Department Care Team Description 04/21/2024 Lab Requisition [facility] Pathology & Laboratory Medicine - [address] [address] Outr Resulting Lab, Provider from Last 3 Months Immunizations Name Administration [...] history of due to NSAIDS Diabetes mellitus ([facility]) Cancer ([facility]) Hearing loss Rectocele 05/18/2011 Mixed incontinence urge [...] Salmonella PCR Negative Negative 04/21/2024 21:15 EST [facility] Shigella/Enteroin vasive E. coli Negative Negative 04/21/2024 21:15 EST [facility] HN LAB CAMPYLOBACTER PCR Negative Negative 04/21/2024 21:15 EST [facility] Shiga Toxin PCR Negative Negative 21:15 EST [facility] Feces SPECIMEN FROM RECTUM / Unknown 04/20/2024 13:00 EST 04/21/2024 16:45 EST us Provider Outr Resulting Lab MICROBIOLOGY - GENER AL ORDERABLES Final Result [facility] [address] [place] [address] from Last 3 Months Insurance [facility] MEDICARE Advance Directives For more information, please contact: [phone] * Full Code (Latest Code Status on File) Date Activated Date Inactivated Comments 08/21/2011 16:46 08/22/2011 17:10 Care Teams Block Mechanic Relationship Specialty Start Date End Date Salome Mcarthur, PET HOUSE SITTER [address] [place] [address] PCP - General 03/14/20
--- OUTSIDE RECORDS SUMMARY | 2024-05-18 17:00 | XMS_ITS | Encounter Summary ---
Author Organization [facility] Address [address] [place] [address] Care Team Providers Care Scientist Immunology Name Role Phone Salome Mcarthur JUNIOR AUTOMATION ENGINEER Primary Care Provider [phone] Encounter Details Date Type Department Care Team (Late st Contact Info) Description 04/21/2024 Lab Requisition [facility] Pathology & Laboratory Medicine - [facility] [address] [place] [address] Outr Resulting Lab, Provider Social [...] PATHOGENS BY PCR Routine 04/20/2024 13:00 EST documented in this encounter Results * FECAL BACTERIAL PATHOGENS BY PCR (04/20/2024 13:00 EST) Salmonella PCR Negative Negative 04/21/2024 21:15 EST [facility] Shigella/Enteroin vasive E. coli Negative Negative 04/21/2024 21:15 EST [facility] HN LAB CAMPYLOBACTER PCR Negative Negative 04/21/2024 21:15 EST [facility] Shiga Toxin PCR Negative Negative 21:15 EST [facility] Feces SPECIMEN FROM RECTUM / Unknown 04/20/2024 13:00 EST 04/21/2024 16:45 EST us Provider Outr Resulting Lab MICROBIOLOGY - GENER AL ORDERABLES Final Result Performing Organization Address City/State/[facility] Co de Phone Number [facility] [address] [place], [place] [id number] documented in this encounter Visit Diagnoses Not on filedocumented in this encounter Care Teams Scientist Immunology Relationship Specialty Start Date End Date Salome Mcarthur NP [address] [place] [address] PCP - General 03/14/20 documented as of this encounter
--- OUTSIDE RECORDS SUMMARY | 2024-05-18 17:00 | XMS_ITS | Encounter Summary ---
Author Organization Formerly [facility] Address [facility] [place] [address] Care Team Providers Care Regional Airline Pilot Name Role Phone Salome Lopez APRN Primary Care Provider [phone] Reason for Visit * Reason Comments GI Problem * Consultation (Routine) - Closed Specialty Diagnoses / Procedures Referred By Jose bermudez Referred To Contact Gastroenterology Diagnoses fatty liver disease Salome Lopez APRN [address] [place] [address] [facility] [address] [place] [address] Referral ID Status Reason Start Date Expiration Date V isits Requested Visits Authorized [id number] Closed Evaluate and Treat Connection Center 05/30/2015 05/29/2016 1 1 Encounter Details Date Type Department Care Team (Late st Contact Info) Description 06/28/2015 2:30 PM EDT Office [place] [phone] Lani Wallis APRN [facility] [place] [address] NAFLD (nonalcoholic fatty liver disease); [...] HEPATOLOGY NEW PATIENT CONSULTATION Nick Mendieta 1940 HOTEL SERVER: LANI WALLIS APRN PCP: SALOME LOPEZ APRN [...] alcohol. Her sister is followed here at [facility] and is thinking about liver transplant. In [...] 100 mg by mouth as needed. ??? [place]-3 Fatty Acids-Vitamin E (FISH OIL) 1,000 mg [...] Vibration Controlled Transient Elastography (VCTE) or Fibroscan [place] Protocol: Patient's identity, procedure and site were [...] Wallis APRN Section of Gastroenterology [place] [address] Copy: SALOME LOPEZ APRN 4 [facility] [place] [facility] [place] [id number] documented in this encounter Miscellaneous Notes * [...] HEMATOLOGY ORDERABL ES [facility] [place] [address] * (ABNORMAL) Comprehensive metabolic panel (non-fasting) (02/15/2016 1:48 PM EST) Glucose 205(H) 65 - 199 mg/dL [facility] Comment:Diabetes: >=200 mg/d L plus symptoms Blood Urea Nitrogen 15 8 - 18 mg/dL [facility] Creatinine 0.90 0.70 - 1.20 mg/dL [facility] Comment: Please note that the pediatric reference intervals supplied above were not validated at [facility]. Results from pediatric patients should be interpreted [...] the following links into your internet browser. [email or web address] Blood specimen (specimen) 02/15/2016 1:48 PM EST 02/15/2016 1:52 PM EST Narrative Resulting Agency Comment Spec In Lab Tremaine Rock MD CHEMISTRY ORDERABLE S [facility] [place] [address] * US Abdomen Complete With Vascular (02/15/2016 [...] 01:34 pm) PATIENT INFO: ID #: ? [id number] ? : [birth year] (75 yrs) Name: ? NICK MENDIETA ? Visit Date:02/15/2016 10:44 am PERFORMED BY: Performed By: ? Cotlon Coppola RDMS Attending: ?Jaja GALLO, Sumi Kang Referred By: ?TREMAINE ROCK MD Secondary Phy.: ?? LANI WALLIS APRN Location: ? [place] SERVICE(S) PROVIDED: ??UABDCVASC - Abdominal Complete Survey with Vascular - 18295, [id number] ??[id number] INDICATIONS: ??Cirrhosis: survey for Hepatocellular carcinoma, ??evaluate [...] Vein: Collaterals: ??None visualized Procedure Note Sumi Wilkinosn MD - 02/15/2016 Abdominal Duplex (Signed Final 02/15/2016 01:34pm) PATIENT INFO: ID #: [id number] : [birth year] (75 yrs) Name: NICK MENDIETA Visit Date:02/15/2016 10:44 am PERFORMED BY: Performed By: Colton Coppola RDMS Attending: Sumi Wilkinson MD Referred By: TREMAINE ROCK MD Secondary Phy.: LANI WALLIS APRN Location: [place] SERVICE(S) PROVIDED: UABDCVASC - Abdominal Complete Survey with Vascular - 17241, [id number] INDICATIONS: Cirrhosis: survey for Hepatocellular carcinoma, evaluate [...] 04:17 pm) Patient Info ID #: ? [id number] ? : [birth year] (75 yrs) Name: ? NICK Yue MENDIETA ? Visit Date:07/22/2015 09:18 am Performed By Performed By: ? Michelle Major RDMS Attending: ?Juliane GALLO, Meghan Ventura Associate: ?Nila GALLO, Mat Alvarado Referred By: ?TREMAINE ROCK MD Service(s) Provided ??UABDCVASC - Abdominal Complete Survey with Vascular - 95090, 88874 ??[id number] Indications ??Cirrhosis: survey for hepatocellular carcinoma, ??evaluate [...] Final 08/03/2015 04:17pm) Patient Info ID #: [id number] : [birth year] (75 yrs) Name: NICK MENDIETA Visit Date:07/22/2015 09:18 am Performed By Performed By: Michelle Major RDMS Attending: Meghan Cardozo MD Associate: Mat Dotson MD Referred By: TREMAINE ROCK MD Service(s) Provided UABDCVASC - Abdominal Complete Survey with Vascular - 98926, 94696 [id number] Indications Cirrhosis: survey for hepatocellular carcinoma, evaluate [...] Report 08/03/2015 04:17 pm Tremaine Rock MD [facility] US GEN ORDERABL ES * Differential, Automated (06/28/2015 4:22 PM EDT) Neutrophil % 48.9 % [facility] Neutrophil Absolute 4.02 1.50 - 6.30 x10(3)/[facility] LAB[facility]AT[facility] Lymph % 43.3 % [facility] Lymphocytes Abs 3.6 1.0 - 3.6 x10(3)/[facility] LABORATORY Monocyte % 6.3 % [facility] Monocyte Abs 0.5 0.2 - 1.0 x10(3)/[facility] LABORATORY Eos % 1.1 % [facility] Eosinophils Abs 0.1 0.0 - 0.5 x10(3)/[facility] LABORATORY Basophil % 0.2 % [facility] Baso Absolute 0.0 0.0 - 0.2 x10(3)/[facility] Immature Gran % 0.20 % [facility] Comment: Immature granulocytes(IG's)percentage and absolute count will include metamyelocytes, myelocytes, and promyelocytes. Blood smears from CBCs yielding IG's will be scanned manually for concordance. If this scan disagrees with the automated IG or if promyelocytes are noted, a manual differential will be performed. Immature Gran Absolute 0.02 0.00 - 0.05 x10(3)/[facility] LABORAT[facility] Blood specimen (specimen) 06/28/2015 4:22 PM EDT 06/28/2015 4:24 PM EDT Narrative Resulting Agency Comment Spec In Lab Tremaine Rock MD HEMATOLOGY ORDERABL ES Performing Organization Address City/State/[facility] Co de Phone Number [facility] [place] [address] * Hemogram (06/28/2015 4:22 PM EDT) White Blood Cell 8.2 4.0 - 10.0 x10(3)/[facility] LABORATORY Red Blood Cell 4.57 3.93 - 5.22 x10(6)/[facility] LAB[facility]ORY Hemoglobin 14.4 11.2 - 15.7 gm/dL [facility] Hematocrit 42.0 34.0 - 45.0 % [facility] Mean Cell Volume 91.9 79.0 - 94.0 fL [facility] Mean Cell Hemoglobin 31.5 26.6 - 32.2 pg [facility] Mean Cell Hemoglobin Concentration 34.3 32.0 - 36.5 gm/dL [facility] Platelet 168 145 - 370 x10(3)/mcL [facility] RDW Standard Deviation 42.1 35.0 - [...] MD HEMATOLOGY ORDERABL ES Performing Organization Address City/[facility]/ZIP Co de Phone Number [facility] [place] [address] * Hepatitis B Surface Antigen (06/28/2015 4:22 PM EDT) Hepatitis B Surface Antigen Negative Negative [facility] Blood specimen (specimen) 06/28/2015 4:22 PM EDT 06/28/2015 4:25 PM EDT Narrative Resulting Agency Comment Spec In Lab Tremaine Rock MD CHEMISTRY ORDERABLE S [facility] [place] [address] * Hepatitis C Antibody (06/28/2015 4:22 PM EDT) Hepatitis C Antibody Negative Negative [facility] Blood specimen (specimen) 06/28/2015 4:22 PM EDT 06/28/2015 4:25 PM EDT Narrative Resulting Agency Comment Spec In Lab Tremaine Rock MD CHEMISTRY ORDERABLE S Performing Organization Address City/[facility]/ZIP Co de Phone Number [facility] [place] [address] * Hepatitis B Surface Antibody (06/28/2015 4:22 [...] MD CHEMISTRY ORDERABLE S Performing Organization Address [facility] Co de Phone Number [facility] [place] [address] * Hepatitis A Antibody, Total (06/28/2015 4:22 PM EDT) Hepatitis A ANTIBODY, TOTAL Negative Negative [facility] Blood specimen (specimen) 06/28/2015 4:22 PM EDT 06/28/2015 4:25 PM EDT Narrative Resulting Agency Comment Spec In Lab Tremaine Rock MD CHEMISTRY ORDERABLE S Performing Organization Address City/[facility]/ZIP Co de Phone Number [facility] [place] [address] * Hepatitis B Core Antibody, Total (06/28/2015 4:22 PM EDT) Hepatitis B Core Antibody Negative Negative [facility] Blood specimen (specimen) 06/28/2015 4:22 PM EDT 06/28/2015 4:25 PM EDT Narrative Resulting Agency Comment Spec In Lab Tremaine Rock MD CHEMISTRY ORDERABLE S [facility] [place] [address] * Iron and TIBC (06/28/2015 4:22 PM [...] CHEMISTRY ORDERABLE S [facility] [place] [address] * Ferritin (06/28/2015 4:22 PM EDT) Ferritin 152 30 - 400 ng/mL [facility] Comment: Pediatric reference ranges not verified at [facility], interpret with caution. Reference ranges for females greater than 50 years of age approach values for men, i.e., 30-400 ng/mL. Blood specimen (specimen) 06/28/2015 4:22 PM EDT 06/28/2015 4:25 PM EDT Narrative Resulting Agency Comment Spec In Lab Tremaine Rock MD CHEMISTRY ORDERABLE S [facility] [place] [address] documented in this encounter Visit Diagnoses Diagnosis [...] type documented in this encounter Care Teams Regional Airline Pilot Relationship Specialty Start Date End Date Salome Lopez APRN [address] [address] PCP - General Family Medicine 05/30/15 12/11/23 documented as of this encounter
--- OUTSIDE RECORDS SUMMARY | 2024-05-18 17:00 | XMS_ITS | Encounter Summary ---
Author Organization [facility] Address [address] [place] [address] Care Team Providers Care Top Screw Name Role Phone Leatha Lizbet C OYSTER SHIPPER Primary Care Provider [phone] Encounter Details Date Type Department Care Team (Late st Contact Info) Description 01/16/2018 Historical Results Only [facility] Radiology Results [address] [place], [place] [id number] Ella Castle MD [address] [place] [phone] Social History Tobacco Use Types Packs/Day [...] noncritical result requiring ? follow-up on the Autrement (HotelHotel) PACS findings application, to be tracked by ? the [facility] tracking system. ? REPORT SIGNED IN OTHER VENDOR SYSTEM 01/16/2018 ?Reported By: Francis Bustamante MD ? CC: LANI WALLIS ? Transcribed Date/Time: 01/16/2018 (1706) ? Receptionist Clerk: ? Printed Date/Time: 09/27/2018 (2326) ? PAGE 1 ? Signed Report ? [...] a noncritical result requiring follow-up on the Autrement (HotelHotel) PACS findings application, to be tracked by the [facility] tracking system. REPORT SIGNED IN OTHER VENDOR SYSTEM 01/16/2018 Reported By: Francis Bustamante MD CC: LANI WALLIS Transcribed Date/Time: 01/16/2018 (8448) Receptionist Clerk: Printed Date/Time: 09/27/2018 (4472) PAGE 1 Signed Report us Ella Castle MD IMG CT ORDERABLES Final R esult documented in this encounter Visit Diagnoses Not on filedocumented in this encounter Care Teams Top Screw Relationship Specialty Start Date End Date Lizbet Zhang FNP [address] [place] [address] PCP - General 02/24/13 03/13/20 documented as of this encounter
--- OUTSIDE RECORDS SUMMARY | 2024-05-18 17:00 | XMS_ITS | Encounter Summary ---
Author Organization [facility] Address [address] [place] [address] Care Team Providers Care Scrap Drop Crane Operator Name Role Phone LeathaLizbet HYDRAULIC DESIGN ENGINEER Primary Care Provider [phone] Encounter Details Date Type Department Care Team (Latest Contact Info) Description 12/15/2015 9:36 EDT - 12/15/2015 23:59 EDT Hospital Encounter [address] [address] Unknown, Provider, MD Discharge Disposition: Home or [...] 1 Tab by mouth daily before breakfast. [place]-3 Fatty Acids-Vitamin E (FISH OIL) 1,000 mg [...] Code Departure Means Destination Home or Self Long Term documented in this encounter Plan of Treatment Not on file documented as of this encounter Visit Diagnoses Not on filedocumented in this encounter Care Teams Scrap Drop Crane Operator Relationship Specialty Start Date End Date Lizbet Zhang FNP [facility] [place] [address] PCP - General 02/24/13 03/13/20 documented as of this encounter
--- OUTSIDE RECORDS SUMMARY | 2024-05-18 17:00 | XMS_ITS | Encounter Summary ---
Author Organization [facility] Address [address] [place] [address] Care Team Providers Care Chief Technician Name Role Phone Salome Mcarthur ECD Primary Care Provider [phone] Reason for Visit * Reason Comments New Patient Visit Spot of right calf t hat has been there for a few weeks that's getting bigger. No P/FHx of skin cancer Encounter Details Date Type Department Care Team (Late st Contact Info) Description 03/16/2020 11:00 EST Office Visit [facility] Dermatology [address] [facility], [place], [place] [address] Brittanie Ponce MD [address] [place] [address] [place] [phone] Neoplasm of uncertain behavior of skin (Primary [...] pain should be mild. Take according to securities counselor directions. BLEEDING: You may notice some blood [...] PATIENT INFORMATION: Milka Corbett : MRN: [id number] SURGEON: Brittanie Ponce MD The indication, risks, [...] 03/16/2020 1100 EST Lidocaine Lot #[id number] EXP: [id number] documented in this encounter Miscellaneous Notes * [...] this encounter Results * ROUTINE CULTURE - [facility] (03/16/2020 11:45 EST) USUAL SKIN TRUNG - [facility] USF 03/19/2020 9:38 EST [facility] QUANT - [facility] MODERATE 03/19/2020 9:38 EST [facility] Lower limb structure (body structure) 03/16/2020 11:45 EST 03/17/2020 16:10 EST Comment:RL Daria [facility] - 03/19/2020 9:38 EST RIGHT LOWER LEG us Brittanie Ponce MD CHEMISTRY & BLOOD GAS ORDERABL ES Final Result Performing Organization Address City/[facility]/ZIP Co de Phone Number [facility] [address] [place] [address] * GRAM SMEAR (03/16/2020 11:45 EST) GRAM STAIN - [facility] TWO SWABS RECEIVED FOR CULTURE AND GRAM STAIN 03/17/2020 19:43 EST [facility] BACTERIA SEEN - [facility] NO 03/17/2020 19:43 EST [facility] WBC NO 03/17/2020 19:43 EST [facility] Lower limb structure (body structure) 03/16/2020 11:45 EST 03/17/2020 16:10 EST Comment:RL Daria [facility] - 03/19/2020 9:38 EST RIGHT LOWER LEG us Brittanie Ponce MD MICROBIOLOGY - GENERAL ORDERAB LES Final Result Performing Organization Address City/[facility]/ZIP Co de Phone Number [facility] [address] [place] [address] * SURGICAL PATHOLOGY (03/16/2020 11:44 EST) Final Diagnosis A. SKIN OF LEG, RIGHT LOWER, SHAVE BIOPSY: - Seborrheic keratosis, irritated. 03/21/2020 16:17 [facility] Attestation By the signature below, the attending physician certifies that they have 1) personally conducted a gross and/or microscopic examination of the described specimen(s), and/or personally interpreted the results of laboratory testing of the described specimen(s), and 2) personally rendered or confirmed the above diagnosis. 03/21/2020 16:17 [facility] at 1617 Microscopic Description Sections consist of a shave biopsy of a papule. There is hyperkeratosis with focal parakeratosis. The papules formed by epidermal acanthosis with a focal endophytic growth pattern. The keratinocytes have reactive changes with hypergranulosis. Within the dermis, there is a patchy mixed infiltrate. Deeper sections have similar features. 03/21/2020 16:17 [facility] Clinical History Indurated tender pink papule with surrounding erythema: ?SCC vs BCC vs irritated SK vs LPLK vs other; clinical diagnosis code: D48.5 03/21/2020 16:17 [facility] Gross Description A. Received in formalin labelled with proper patient identification (initials C, S) and not otherwise specified is a shave biopsy of pale tillman to tillman-pink plaque like skin (1.1 x 0.8 x 0.1 cm). The margin is inked blue. Trisected and submitted in A1. Alexis Ponce 03/17/2020 10:16 03/21/2020 16:17 [facility] Performing Lab [facility] 03/21/2020 16:17 [facility] Scanned Images 03/21/2020 16:17 [facility] Tissue TISSUE SPECIMEN FROM SKIN / Unknown 03/16/2020 11:44 EST 03/17/2020 6:54 EST us Brittanie Ponce MD PATHOLOGY ORDERABLES Final Res ult [facility] [address] [place] [address] documented in this encounter Visit Diagnoses Diagnosis [...] documented as of this encounter Care Teams Chief Technician Relationship Specialty Start Date End Date Salome Mcarthur, ECD [address] [place] [address] PCP - General 03/14/20 documented as of this encounter
--- OUTSIDE RECORDS SUMMARY | 2024-05-18 17:00 | XMS_ITS | Encounter Summary ---
Author Organization [facility] Address [address] [place] [address] Care Team Providers Care Nurse Office Name Role Phone LeathaLizbet CONSULTATIVE SALES ASSOCIATE Primary Care Provider [phone] Encounter Details Date Type Department Care Team (Late st Contact Info) Description 10/17/2017 Historical Results Only [facility] Radiology Results [address] [place] [address] Molly Cui, LORETO [address] [place] [address] [place] [address] Social History Tobacco Use Types Packs/Day Years [...] NODULE NOTED ON ? MRI 09/21/17 @ [facility]. NO HX OF SMOKING ? CHEST WITH CONTRAST ??10/17/2017 11:41 AM ? Clinical History/Comments: ? R91.1 INCIDENTAL NOTE OF LUNG NODULE NOTED ON, MRI 09/21/17 @ [facility]. NO ? HX OF [...] CC: ? Transcribed Date/Time: 10/17/2017 (1419) ? Manager Systems: ? Printed Date/Time: 09/26/2018 (9992) ? PAGE 2 ? Signed Report ? Procedure Note Carl Ortega MD - 02/12/2019 EXAM: CAT SCAN/CHEST WITH CONTRAST EX. D/ (1141) CLINICAL INFORMATION: R91.1 INCIDENTAL NOTE OF LUNG NODULE NOTED ON MRI 09/21/17 @ [facility]. NO HX OF SMOKING CHEST WITH CONTRAST 10/17/2017 11:41 AM Clinical History/Comments: R91.1 INCIDENTAL NOTE OF LUNG NODULE NOTED ON, MRI 09/21/17 @ [facility].NO HX OF SMOKING Technique: [...] Carl Ortega MD CC: Transcribed Date/Time: 10/17/2017 (0658) Manager Systems: Printed Date/Time: 09/26/2018 (6109) PAGE 2 Signed Report us Molly Cui AUDIO SPECIALIST IMG CT ORDERABLES Final Re sult * (ABNORMAL) COMPLETE BLOOD COUNT WITH DIFFERENTIAL (AUTO) (10/17/2017 10:37 EDT) ABSOLUTE NEUTROPHIL COUN - [facility] 3.14 1.7 - 7.0 10e3/ul 10/17/2017 11:09 [facility] BASO # - [facility] 0.02 0.0 - 0.3 10e3/uL 10/17/2017 11:09 [facility] BASO % - [facility] 0 0 - 2 % 10/17/2017 11:09 [facility] EOS # - [facility] 0.11 0.05 - 0.5 10e3/uL 10/17/2017 11:09 [facility] EOS % - [facility] 2 0 - 5 % 10/17/2017 11:09 [facility] GRAN % - [facility] 54 40 - 80 % 10/17/2017 11:09 [facility] HEMATOCRIT - [facility] 41.7 34.0 - 47.0 % 10/17/2017 11:09 [facility] HEMOGLOBIN - [facility] 14.3 11.2 - 15.7 g/dl 10/17/2017 11:09 [facility] IG# - [facility] 0.02 0 - 0.07 e3/uL 10/17/2017 11:09 [facility] IG% - [facility] 0.3 0 - 0.9 % 10/17/2017 11:09 [facility] LYMPH # - [facility] 2.14 0.9 - 2.9 10e3/uL 10/17/2017 11:09 [facility] LYMPH% - [facility] 37 20 - 40 % 10/17/2017 11:09 [facility] MEAN CORPUSCULAR HGB - [facility] 31.4 26 - 34 pg 10/17/2017 11:09 [facility] MEAN CORPUSCULAR HGB CONC - [facility] 34.3 31 - 36 g/dL 10/17/2017 [facility] MEAN CELL VOLUME - [facility] 91.4 77 - 100 fl 10/17/2017 11:09 [facility] MONO # - [facility] 0.41 0.3 - 0.9 10e3/uL 10/17/2017 11:[facility] MONO% - [facility] 7 0 - 12 % 10/17/2017 11:09 [facility] PLATELET COUNT 118(L) 150 - 400 10e3/ul 10/17/2017 11:56 [facility] RED BLOOD COUNT - [facility] 4.56 3.8 - 5.2 10e6/ul 10/17/2017 11:09 [facility] RED CELL DISTRI WIDTH - [facility] 12.5 11.8 - 15.6 % 10/17/2017 11:09 [facility] WHITE BLOOD COUNT - [facility] 5.8 3.5 - 10.5 10e3/ul 10/17/2017 11:09 [facility] 10/17/2017 10:3 7 EDT 10/17/2017 10:37 EDT Narrative [facility] - 10/17/2017 11:56 EDT Does PT Have a Latex Allergy? YES us Molly Cui APRN HEMATOLOGY & PF4 ORDERABLE S Final Result [facility] * AFP TUMOR MARKER (10/17/2017 10:37 EDT) ALPHA-FETOPROTEIN TUMOR MARKER - [facility] 3.0 <8.1 ng/mL 10/18/2017 14:[facility] Comment: AFP tumor marker cannot be interpreted in females. ?? Serum AFP concentration should not be interpreted as absolute evidence for the presence or absence of malignant disease. ?? Assayed utilizing Siemens chemiluminescent technology. Values obtained by using different assay methods cannot be used interchangeably. Test Performed by: [facility] [address] [address] 10/17/2017 10:3 7 EDT 10/17/2017 10:37 EDT Narrative [facility] - 10/18/2017 14:30 EDT Instructions? FAX ATTENTION: VARSHA LAZO NUMBER: [phone] TEST TO BE FAXED?: ALL Does PT Have a Latex Allergy? YES Results faxed on 10/18/17 3200 by [facility] us Molly Cui APRN CHEMISTRY & BLOOD GAS ORDE LAYLA Final Result [facility] * (ABNORMAL) COMPREHENSIVE METABOLIC PANEL (CMP) (10/17/2017 10:36 EDT) Albumin % 4.3 3.4 - 4.9 g/dL 10/17/2017 11:07 [facility] ALKALINE PHOSPHATASE - [facility] 79 38 - 126 U/L 10/17/2017 11:07 [facility] BILIRUBIN TOTAL 0.6 0.2 - 1.3 mg/dL 10/17/2017 11:07 [facility] BUN - [facility] 15 10 - 26 mg/dL 10/17/2017 11:07 [facility] CALCIUM - [facility] 10.5 8.5 - 10.5 mg/dL 10/17/2017 11:07 [facility] Chloride 99 96 - 110 mmol/L 10/17/2017 11:07 [facility] CO2 Total 27 22 - 32 mEq/L 10/17/2017 11:07 [facility] CREATININE 0.58 0.52 - 1.04 mg/dL 10/17/2017 11:07 [facility] eGFR >60 10/17/2017 11:07 [facility] Comment: Chronic renal impairment is defined as GFR <60 Multiply result by 1.210 for patients. eGFR calculated using the IDMS-traceable MDRD Study Equation. ??(effective 02/08/2014) Anion Gap 14 0 - 18 10/17/2017 11:07 [facility] GLUCOSE - [facility] 184(H) 70 - 100 mg/dL 10/17/2017 11:07 [facility] Potassium 4.1 3.5 - 5.0 mEq/L 10/17/2017 11:07 [facility] Sodium 140 136 - 145 mEq/L 10/17/2017 11:07 EDT [facility] TOTAL PROTEIN - [facility] 7.4 6.2 - 8.2 gm/dL 10/17/2017 11:07 [facility] SGOT/AST - [facility] 32 14 - 36 U/L 10/17/2017 11:07 [facility] SGPT/ALT - [facility] 51 9 - 52 U/L 8 11:07 [facility] 10/17/2017 10:3 6 EDT 10/17/2017 10:36 EDT [facility] - 10/17/2017 11:07 EDT Does PT Have a Latex Allergy? YES us Molly Cui APRN CHEMISTRY & BLOOD GAS ORDE RABLES Final Result [facility] * PROTIME (10/17/2017 10:36 EDT) [facility] PROTHROMBIN TIME - [facility] 10.7 9.5 - 13.4 SECONDS 10/17/2017 [facility] 10/17/2017 10:3 6 EDT 10/17/2017 10:36 EDT [facility] - 10/03/2018 8:42 EDT Does PT Have a Latex Allergy? YES us Molly Cui APRN HEMATOLOGY & PF4 ORDERABLE S Final Result [facility] * PROTIME (10/17/2017 10:36 EDT) [facility] INR [facility] 1.0 0.9 - 1.2 10/17/2017 11:09 EDT [facility] Comment: Low intensity INR: 2.0-3.0 High intensity INR: Consult Coag Dept. 10/17/2017 10:3 6 EDT 10/17/2017 10:36 EDT Narrative [facility] - 10/03/2018 8:42 EDT Does PT Have a Latex Allergy? YES us Molly Cui AUDIO SPECIALIST HEMATOLOGY & PF4 ORDERABLE S Final Result [facility] documented in this encounter Visit Diagnoses Not on filedocumented in this encounter Care Teams Nurse Office Relationship Specialty Start Date End Date Lizbet Zhang FNP [address] [place] [address] PCP - General 02/24/13 03/13/20 documented as of this encounter
--- OUTSIDE RECORDS SUMMARY | 2024-05-18 17:01 | XMS_ITS | Encounter Summary ---
Author Organization [facility] Address [address] [place] [address] Care Team Providers Care Office Sweeper Name Role Phone Agustin Ramires MD Primary Care Provider [phone] Reason for Visit * Reason Onset Date Comments Fever 08/27/2011 Encounter Details Date Type Department Care Team (Late st Contact Info) Description 08/27/2011 Telephone [facility] Pelvic Medicine and Reconstructive Surgery - Medical Office [facility] [address] [place] [address] Tim Molina MD [address] [place] [address] Fever Social History Tobacco Use Types [...] on filedocumented in this encounter Care Teams Office Sweeper Relationship Specialty Start Date End Date Agustin Ramires MD [address],[facility] [address] [place] [address] PCP - General 08/20/11 02/23/13 documented as of this encounter
--- OUTSIDE RECORDS SUMMARY | 2024-05-18 17:01 | XMS_ITS | Encounter Summary ---
Author Organization [facility] Address [address] [place] [address] Care Team Providers Care Full Stack Web Developer Name Role Phone Avel Rivera MD Primary Care Provider Unav ailable Encounter Details Date Type Department Care Team (Late st Contact Info) Description 10/05/2005 Before PRISM Converted Visit (Maple) [facility] - Maple conversion [address] [place] [address] Tiara Mendez MD [phone] [place] [address] Social History Tobacco Use Types Packs/Day Years Used Date Smoking Tobacco: Never Assessed Comments Unknown Sex and Gender Information Value Date Recorded Sex Assigned at Not on file Legal Sex Female 18:18 EST Gender Identity Female 02/14/2022 14:15 EST Sexual Orientation Not on file documented as of this encounter Progress Notes * Tad, Conv Diesel Locomotive Firer - 04/01/2009 0953 EST [facility] PROGRESS/FOLLOWUP NOTE - 10/05/2005 SUBJECTIVE: Milka [...] We discussed possibly referring her to a system manager but she would like to wait until [...] #2: Rosacea which is covered up by Korem today. Trial of MetroGel 1% b.i.d. until clear. Explained that this will probably be an ongoing problem for her. PROBLEM #3: Diabetes. Continue with checking her blood sugars regularly and will check a [id number] at her convenience. PROBLEM #4: Hypertriglyceridemia. Check [...] Mendez MD P - jennie Job ID: [id number] Document ID: [id number] cc: documented in this encounter Plan of Treatment Not on file documented as of this encounter Visit Diagnoses Not on filedocumented in this encounter Care Teams Full Stack Web Developer Relationship Specialty Start Date End Date Avel Rivera MD PCP - General 09/03/08 07/10/09 documented as of this encounter
--- OUTSIDE RECORDS SUMMARY | 2024-05-18 17:01 | XMS_ITS | Encounter Summary ---
Author Organization [facility] Address [address] [place] [address] Care Team Providers Care Mexican Food Maker Name Role Phone Avel Rivera MD Primary Care Provider Unav ailable Encounter Details Date Type Department Care Team (Late st Contact Info) Description 07/01/2006 Before PRISM Converted Visit (Maple) [facility] - Maple conversion [address] [place] [address] Tiara Mendez MD [phone] [place] [address] Social History Tobacco Use Types Packs/Day Years Used Date Smoking Tobacco: Never Assessed Comments Unknown Sex and Gender Information Value Date Recorded Sex Assigned at Not on file Legal Sex Female 18:18 EST Gender Identity Female 02/14/2022 14:15 EST Sexual Orientation Not on file documented as of this encounter Progress Notes * Tad, Conv Attendant Honor Bar - 02/08/2009 1017 EST [facility] PROGRESS/FOLLOWUP NOTE - 07/01/[address] Mrs[address] Corbett [...] the one her friend went to in [place]. 3. Hypertension, excellently controlled at present. She [...] MD Tiara Mendez MD P Job ID [id number] A/lt Doc ID [id number] cc: documented in this encounter Plan of Treatment Not on file documented as of this encounter Visit Diagnoses Not on filedocumented in this encounter Care Teams Mexican Food Maker Relationship Specialty Start Date End Date Avel Rivera MD PCP - General 09/03/08 07/10/09 documented as of this encounter
--- OUTSIDE RECORDS SUMMARY | 2024-05-18 17:01 | XMS_ITS | Encounter Summary ---
Author Organization [facility] Address [address] [place] [address] Care Team Providers Care Edger Feeder Name Role Phone Agustin Ramires MD Primary Care Provider [phone] Unknown, Provider Primary Care Provider Unava ilable Agustin Ramires MD Primary Care Provider [phone] Kayleigh Peña Primary Care Provider [phone] Agustin Ramires MD Primary Care Provider [phone] Lizbet Zhang CASTER OPERATOR Primary Care Provider [phone] Encounter Details Date Type Department Care Team (Late st Contact Info) Description 05/15/2010 Historical Results Only [facility] - Main [place] [address] [place], [place] [address] Jens Deleon MD [facility] [address] [place] [address] Social History Tobacco Use Types [...] (05/15/2010) 05/15/2010 05/15/2010 12: 46 EST Narrative [facility] - 05/16/2010 10:58 EST ----- ------- Name: MILKA MENDIETA ?: 42 ?Age/Sex: 78/F ?Unit#: [id number] ? Loc: END ? Status: DEP CLI ?? Reg Date: 05/15/10 ? Pt.Phone Number: ? ----- ------- Specimen: [id number] ?STATUS: SOUT ?Spec Date:05/15/10 ? Physician Copies: ?Jens Deleon MD ? Tissues: A ?? Gastrointestinal Tract (PROXIMAL ASCENDING COLON) ?Kayleigh PeñaMelida CPT: 71039 ?? Units: ??1 ?FINAL DIAGNOSIS ? Proximal [...] confirmed the above diagnosis. Test Performed by [facility], [address] [place] [id number] Transformation Analyst: Namrata Childs MD PHD ----- ------- us Jens Deleon MD PATHOLOGY ORDERABLES Final Resul t [facility] documented in this encounter Visit Diagnoses Not on filedocumented in this encounter Care Teams Edger Feeder Relationship Specialty Start Date End Date Agustin Ramires MD [address] [phone] PCP - General 07/11/09 05/16/10 Unknown, MD Nkechi PCP - General 05/17/10 02/07/11 Agustin Ramires MD [address] [place] [phone] PCP - General 02/08/11 05/15/11 Kayleigh Peña PA [address] [place] [address] PCP - General 05/16/11 08/19/11 Agustin Ramires MD [address] ,[facility] 2 [place] [phone] PCP - General 08/20/11 02/23/13 Lizbet Zhang, INDIRA [address] [place], [place] [address] PCP - General 02/24/13 03/13/20 documented as of this encounter
--- OUTSIDE RECORDS SUMMARY | 2024-05-18 17:01 | XMS_ITS | Encounter Summary ---
Author Organization [facility] Address [address] [place] [address] Care Team Providers Care Lifter Driver Name Role Phone Agustin Ramires MD Primary Care Provider [phone] Encounter Details Date Type Department Care Team (Late st Contact Info) Description 08/20/2011 Pre-Procedure Orders Encounter [facility] Pelvic Medicine and Reconstructive Surgery - Medical Office [facility] [address] [place] [address] Tim Molina MD [address] [place] [address] Social History Tobacco Use Types Packs/Day [...] on filedocumented in this encounter Care Teams Lifter Driver Relationship Specialty Start Date End Date Agustin Ramires MD [address] [place] [address],[facility] [address] [place] [address] PCP - General 08/20/11 02/23/13 documented as of this encounter
--- OUTSIDE RECORDS SUMMARY | 2024-05-18 17:01 | XMS_ITS | Encounter Summary ---
Author Organization [facility] Address [address] [place] [address] Care Team Providers Care Copywriter Name Role Phone Agustin Ramires MD Primary Care Provider [phone] Unknown, Provider Primary Care Provider Unava ilable Agustin Ramires MD Primary Care Provider [phone] Kayleigh Peña Primary Care Provider [phone] Agustin Ramires MD Primary Care Provider [phone] Lizbet Zhang DESIGN/ANIMATION INSTRUCTOR Primary Care Provider + [phone] Encounter Details Date Type Department Care Team (Late st Contact Info) Description 08/12/2009 Historical Results Only [facility] Lab - Main [address] [address] Leland Boykin MD Social History Tobacco Use [...] (08/12/2009) 08/12/2009 08/14/2009 7:5 2 EDT Narrative [facility] - 08/16/2009 12:46 EDT ----- ------- Name: MILKA MENDIETA ?: 42 ?Age/Sex: 78/F ?Unit#: [id number] ? Loc: LAB.OPX ? Status: REG REF ?? Reg Date: 08/12/09 ? Pt.Phone Number: ? ----- ------- Specimen: [id number] ? STATUS: SOUT ?Spec Date:08/12/09 ? Physician Copies: ?Leland Boykin MD ?? Tissues: ? Urine (VOID) ? CPT: 93038 ?? Units: ??1 ----- ------- ?? NON HAT BLOCKING MACHINE OPERATOR CYTOLOGY DIAGNOSIS Urine, voided: - No malignant [...] confirmed the above diagnosis. Test Performed by [facility], [address] [place] [address] Director: Namrata Childs MD PHD ----- ------- Leland Boykin MD PATHOLOGY ORDERABLES Final Resul t [facility] documented in this encounter Visit Diagnoses Not on filedocumented in this encounter Care Teams Copywriter Relationship Specialty Start Date End Date Agustin Ramires MD [address] ,[facility] 2 [place] [address] PCP - General 07/11/09 05/16/10 Unknown, Provider, PCP - General 05/17/10 02/07/11 Agustin Ramires MD [facility] [address] [address] [place] [address] PCP - General 02/08/11 05/15/11 Kayleigh Peña PA [address] [facility] [address] [place] [address] PCP - General 05/16/11 08/19/11 Agustin Ramires MD [facility] [address] [address] [place] [address] PCP - General 08/20/11 02/23/13 Lizbet Zhang FNP [address] [place] [address] PCP - General 02/24/13 03/13/20 documented as of this encounter
--- OUTSIDE RECORDS SUMMARY | 2024-05-18 17:01 | XMS_ITS | Encounter Summary ---
Author Organization [facility] Address [address] [place] [address] Care Team Providers Care Printed Circuit Boards Pinner Name Role Phone Lizbet Zhang Zoey EQUINE PHARMACOLOGY TECHNICIAN Primary Care Provider [phone] Encounter Details Date Type Department Care Team (Late st Contact Info) Description 12/15/2015 Results Only [facility] [phone] Sandra Ricci MD [address] [place] [phone] Social History Tobacco Use Types Packs/Day [...] ? MILKA MENDIETA ? Accession #: ? [id number] : ? 1940 (Age: 75) ??F ?Collect Date: ? 12/15/2015 Location: ? [facility] ? Receive Date: ? 12/16/2015 Provider: ? SANDRA RICCI MD Copy to: ?KRISTEN LOPEZ COVERING MACHINE OPERATOR ? CYTOLOGIC DIAGNOSIS: URINE, CATHETERIZATION, CYTOLOGIC [...] cellular enhancement technique. ? End of Report [facility] 12/15/2015 12/16/2015 7:5 5 EDT us Sandra Ricci MD PATHOLOGY ORDERABLES Final Result [facility] [address] [place] [address] documented in this encounter Visit Diagnoses Not on filedocumented in this encounter Care Teams Printed Circuit Boards Pinner Relationship Specialty Start Date End Date Lizbet Zhang FNP [address] [place] [address] PCP - General 02/24/13 03/13/20 documented as of this encounter
--- OUTSIDE RECORDS SUMMARY | 2024-05-18 17:01 | XMS_ITS | Encounter Summary ---
Author Organization [facility] Address [address] [place] [address] Care Team Providers Care Management Engineer Name Role Phone Agustin Ramires MD Primary Care Provider [phone] Encounter Details Date Type Department Care Team (Latest Contact Info) Description 08/21/2011 6:58 EDT - 08/22/2011 15:08 EDT Hospital Encounter [facility] [address] [place], [place] [id number] Tim Molina MD [address] [place] [phone] Discharge Disposition: Home or Self Care [...] 1 Tab by mouth daily before breakfast. [place]-3 Fatty Acids-Vitamin E (FISH OIL) 1,000 mg [...] spiritual, emotional, legal, etc.): Prescription coverage through [facility] ([facility]). Denies needs for post-acute services. Patient may go home with Singer. Spouse feels comfortable and has been a residential youth counselor for the patient In the past when she had a Singer. Spouse will provide transportation home and for post-acute needs. Case Management Actions (completed and planned): DCP: home with spouse. No post-acute needs identified. Andreia Faustin RN, CCM #[id number] * Sandra Irwin PA - 08/22/2011 0857 EDT [facility] Urologic Surgery Daily Progress Note Admit [...] DOS fexofenadine (JESÚS) 60 mg tablet Yes [place]-3 Fatty Acids-Vitamin E (FISH OIL) 1,000 mg [...] documented in this encounter H&P Notes * MEDIA TECHNICIAN, SCAN 2 - 08/29/2011 1153 EDT [...] documented in this encounter Procedure Notes * MEDIA TECHNICIAN, SCAN 2 - 08/24/2011 2202 EDTAssociated Order(s): ECG REPORT - SCANNED documented in this encounter Nursing Notes * MEDIA TECHNICIAN, SCAN 2 - 08/24/2011 2202 EDT documented in this encounter OR Notes * OR PreOp - MEDIA TECHNICIAN, SCAN 2 - 08/24/2011 2202 EDT [...] repair and cystoscopy. SURGEON: Tim Molina MD PUBLIC INFORMATION RELATIONS MANAGER: Montrell Barron SA FINDINGS: After cystocele repair was completed, cystoscopy showed good efflux of urine from each ureteral orifice. After Stamey needle passage there was no evidence of needle entry into the bladder or urethra on cystoscopy. ANESTHESIA: General. ESTIMATED BLOOD LOSS: Less than 100 mL. FLUIDS: Approximately 1 L of crystalloid. SPECIMENS: None. DRAINS: A 16-Tamazight Singer catheter, and an Estrace-coated vaginal packing. [...] weighted vaginal speculum was placed and a [place] retractor with retracting hooks was placed for adequate exposure to the vagina. At this point, the anterior vaginal wall was grasped between Allis clamps. A 16-Tamazight Singer catheter was placed into the bladder. [...] then tied across the midline over the health care assistant's finger being used as a spacer, [...] / Tim Farrell. MD Jesse cs Confirmation: [id number] Dictation ID: [id number] cc:Agustin Boykin MD * Anesthesia Procedure Notes - MEDIA TECHNICIAN, SCAN 2 - 08/21/2011 1338 EDT * OR PreOp - MEDIA TECHNICIAN, SCAN 2 - 08/21/2011 1326 EDT * Anesthesia Preprocedure Evaluation - MEDIA TECHNICIAN, SCAN 2 - 08/21/2011 1001 EDT documented in this encounter Miscellaneous Notes * Scanned Note-Null - MEDIA TECHNICIAN, SCAN 2 - 08/24/20112201 EDT * Scanned Note-Null - MEDIA TECHNICIAN, SCAN 2 - 08/24/20112201 EDT * [...] Care - Silvia Gr RN - 08/22/2011 2414 EDT Problem: PAIN Goal: Patient???s pain/discomfort is manageable/tolerable Data: Patient c/o pain in abd and vagina 06/15. Action: Medicated with PRN tylenol and dilaudid. Response: Patient is now resting comfortably, will continue to monitor. Silvia Gr RN 08/22/2011 3:43 * Plan of Care - Jewels Wheeler RN - 08/21/2011 7731 EDT Problem: OXYGENATION/REPIRATORY FUNCTION Goal: Patient will achieve/maintain baseline respiratory rate/effort Outcome: Ongoing Active Multi-Disciplinary problems: FALL RISK [574057] (08/21/11) HEMODYNAMIC STATUS [584796] (08/21/11) OXYGENATION/REPIRATORY FUNCTION [141711] (08/21/11) PAIN [823596] (08/21/11) MOBILITY [809974] (08/21/11) KNOWLEDGE DEFICIT,EDUCATION,DISCHARGE PLAN [[id number]] (08/21/11) Data: Patient arrived on M6, minimal [...] Tim Molina MD - 08/21/2011 1315 EDT [facility] Urologic Surgery Brief Post-Op Note Date [...] EDT) 08/24/2011 22:0 2 EDT Narrative Transcriptions MEDIA TECHNICIAN, SCAN 2 - 08/24/2011 22:02 EDT us Scan 2 Stripping Cutter And Winder PROCEDURE/MINOR SURGICAL OR DERABLES Final Result * (ABNORMAL) GLUCOSE, GLUCOMETER (08/22/2011 11:44 EDT) Glucose, Fingerstick 162(H) 70 - 100 mg/dl [facility] Pasta Maker ID [id number] [facility] Comment:Test Performed by [facility] 08/22/2011 11:4 4 EDT 08/22/2011 11:45 EDT us Tim Molina MD CHEMISTRY & BLOOD GAS ORDER JOEY Final Result Performing Organization Address [facility] Co de Phone Number [facility] [address] [place] [address] * (ABNORMAL) GLUCOSE, GLUCOMETER (08/22/2011 7:11 EDT) Glucose, Fingerstick 137(H) 70 - 100 mg/dl [facility] Pasta Maker ID [id number] [facility] Comment:Test Performed by [facility] 08/22/2011 7:11 EDT 08/22/2011 7:13 EDT us Tim Molina MD CHEMISTRY & BLOOD GAS ORDER JOEY Final Result Performing Organization Address City/[facility]/ZIP Co de Phone Number [facility] [address] [place] [address] * CREATININE (08/22/2011 3:28 EDT) Creatinine 0.54 0.52 - 1.04 mg/dl [facility] GFR, Calculated >60 >60 ml/min/1.7 3m2 [facility] Blood specimen (specimen) 08/22/2011 3:28 EDT 08/22/2011 3:42 EDT Sandra Mcdermott Stampfl PA-C CHEMISTRY & BLOOD GAS O RDERABLES Final Result Performing Organization Address [facility] de Phone Number [facility] [address] [place] [address] * BUN (08/22/2011 3:28 EDT) BUN 13 10 - 26 mg/dl [facility] Blood specimen (specimen) 08/22/2011 3:28 EDT 08/22/2011 3:42 EDT Sandra Maofl PA-C CHEMISTRY & BLOOD GAS O RDERABLES Final Result Performing Organization Address [facility] Phone Number [facility] [address] [place] [address] * (ABNORMAL) ELECTROLYTES (08/22/2011 3:28 EDT) Sodium [...] O RDERABLES Final Result Performing Organization Address [facility] Co de Phone Number [facility] [address] [place] [address] * (ABNORMAL) HEMAGRAM (08/22/2011 3:28 EDT) Pathologist [facility] WBC 12.59(H) 4.0 - 12.4 K/cmm [facility] [...] LAB PLT 152 141 - 320 K/cmm [facility] RDW-CV 13.6 11.7 - 14.6 % [facility] Blood specimen (specimen) 08/22/2011 3:28 EDT 08/22/2011 3:42 EDT us Sandra Irwin PA-C HEMATOLOGY & PF4 ORDERA BLES Final Result [facility] [address] [place] [address] * (ABNORMAL) GLUCOSE, GLUCOMETER (08/21/2011 21:09 EDT) [facility] Glucose, Fingerstick 170(H) 70 - 100 mg/dl [facility] Pasta Maker ID [id number] [facility] Comment:Test Performed by [facility] Services 08/21/2011 21:0 9 EDT 08/21/2011 21:28 EDT us Tim Molina MD CHEMISTRY & BLOOD GAS ORDER JOEY Final Result [facility] [address] [place] [address] * (ABNORMAL) GLUCOSE, GLUCOMETER (08/21/2011 19:35 EDT) Glucose, Fingerstick 190(H) 70 - 100 mg/dl [facility] Pasta Maker [place] [id number] [facility] Comment:Test Performed by [facility] 08/21/2011 19:3 5 EDT 08/21/2011 19:40 EDT us Tim Molina MD CHEMISTRY & BLOOD GAS ORDER JOEY Final Result Performing Organization Address [facility] Co de Phone Number [facility] [address] [place] [address] * (ABNORMAL) GLUCOSE, GLUCOMETER (08/21/2011 13:36 EDT) Glucose, Fingerstick 189(H) 70 - 100 mg/dl [facility] Pasta Maker [place] [id number] [facility] Comment:Test Performed by [facility] 08/21/2011 13:3 6 EDT 08/21/2011 16:10 EDT us Tim Molina MD CHEMISTRY & BLOOD GAS ORDER JOEY Final Result Performing Organization Address [facility] de Phone Number [facility] [address] [place] [address] * (ABNORMAL) GLUCOSE, GLUCOMETER (08/21/2011 8:38 EDT) Glucose, Fingerstick 142(H) 70 - 100 mg/dl [facility] Pasta Maker ID [id number] [facility] Comment:Test Performed by [facility] 08/21/2011 8:38 EDT 08/21/2011 8:44 EDT us Tim Molina MD CHEMISTRY & BLOOD GAS ORDER JOEY Final Result Performing Organization Address [facility] de Phone Number [facility] [address] [place] [address] documented in this encounter Visit Diagnoses Not [...] Provider: Lana Bowles - Comment: Administered by [facility]) clonAZEPAM (KLONOPIN) tablet 0.5 mg (CANCELED) 0.5 [...] mL syringe 0.5 mg 1 0 08/21/2011 vxcdqeggmh-mcaiqlt-rrtpbqev (FIORINAL) 50-325-40 mg capsule 1 Cap 1 [...] 08/22/2011 documented in this encounter Care Teams Management Engineer Relationship Specialty Start Date End Date Agustin Ramires MD [address] [address] [place] [phone] PCP - General 08/20/11 02/23/13 documented as of this encounter
--- OUTSIDE RECORDS SUMMARY | 2024-05-18 17:01 | XMS_ITS | Encounter Summary ---
Author Organization [facility] Address [address] [place] [address] Care Team Providers Care Economics Department Chair Name Role Phone Avel Rivera MD Primary Care Provider Unav ailable Encounter Details Date Type Department Care Team (Late st Contact Info) Description 01/27/2007 Before PRISM Converted Visit ([place]) [facility] - [place] conversion [address] [place] [address] Tiara Mendez MD [phone] [place] [address] Social History Tobacco Use Types Packs/Day Years Used Date Smoking Tobacco: Never Assessed Comments Unknown Sex and Gender Information Value Date Recorded Sex Assigned at Not on file Legal Sex Female 18:18 EST Gender Identity Female 02/14/2022 14:15 EST Sexual Orientation Not on file documented as of this encounter Progress Notes * Tad, Conv Reel Repairer - 02/15/20091955 EST [facility] PROGRESS/FOLLOWUP NOTE - 01/27/2007 ANA [...] 15:02 Tiara Mendez MD P Job ID [id number] T: 12:49 P/jg Doc ID [id number] cc: Tiara Mendez MD P Job ID [id number] P/jg Doc ID [id number] cc: documented in this encounter Plan of Treatment Not on file documented as of this encounter Visit Diagnoses Not on filedocumented in this encounter Care Teams Economics Department Chair Relationship Specialty Start Date End Date Avel Rivera MD PCP - General 09/03/08 07/10/09 documented as of this encounter
--- OUTSIDE RECORDS SUMMARY | 2024-05-18 17:01 | XMS_ITS | Encounter Summary ---
Author Organization [facility] Address [address] [place] [address] Care Team Providers Care Admiralty Lawyer Name Role Phone Avel Rivera MD Primary Care Provider Unav ailable Reason for Visit * Reason Onset Date Comments Medications Refill 05/04/2009 robert, please call milka that this has been ordered Encounter Details Date Type Department Care Team (Late st Contact Info) Description 05/04/[address] [address] Avel Rivera MD Medications Refill (robert, please [...] documented as of this encounter Care Teams Admiralty Lawyer Relationship Specialty Start Date End Date Avel Rivera MD PCP - General 09/03/08 07/10/09 documented as of this encounter
--- OUTSIDE RECORDS SUMMARY | 2024-05-18 17:01 | XMS_ITS | Encounter Summary ---
Author Organization [facility] Address [address] [place] [address] Care Team Providers Care Hop Trainer Name Role Phone Avel Rivera MD Primary Care Provider Unav ailable Encounter Details Date Type Department Care Team (Late st Contact Info) Description 06/24/2008 Before PRISM Converted Visit ([place]) [facility] - [place] conversion [address] [place] [address] Dhruv Milian MD Social History Tobacco Use [...] MENDIETA, MILKA F ? Accession #: ? [id number] ? : ? 1940 (Age: 68) ??F ? Collect Date: ? 06/24/2008 ? Location: ? [facility] ? Receive Date: ? 06/24/2008 ? Provider: DHRUV MILIAN MD ? Copy to: CRYSTAL RATLIFF MD ? Final Pathologic Diagnosis: ? A. ??Bladder, base of previous tumor, biopsies ([facility] [id number] A D1-D2; ? 2008): ? 1. 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 dystrophic calcification and reactive change. See comment. ? 2. ? Muscularis propria is identified. ? B. ?? Bladder, inferior to main tumor, biopsy ([facility] [id number]; B D1-D2; ? 2008) ? 1. ?? Urothelial hyperplasia with chronic inflammation and reactive ? epithelial changes. ??See ? comment. ? 2. ?? Muscularis propria is identified. ? C. ?Bladder, tumor, resection ([place] [id number]; 03/19/2008): ? 1. ?? Low grade papillary [...] diagnosis. ? Specimen(s) Received: ? [facility] [id number] (4), [id number] (1) ? Clinical History: ? Bladder cancer ? Gross Description: ? [facility], one each labelled [id number] A D1, [id number] A D2, [id number] B D1, [id number] B D2, ? [id number]. ? End of Report ? [facility] 06/24/2008 06/24/2008 14: 46 EDT us Dhruv Milian MD PATHOLOGY ORDERABLES Final Resul t Performing Organization Address City/State/[facility] Co de Phone Number [facility] [address] [place] [address] documented in this encounter Visit Diagnoses Not on filedocumented in this encounter Care Teams Hop Trainer Relationship Specialty Start Date End Date Avel Rivera MD PCP - General 09/03/08 07/10/09 documented as of this encounter
--- OUTSIDE RECORDS SUMMARY | 2024-05-18 17:01 | XMS_ITS | Encounter Summary ---
Author Organization [facility] Address [address] [place] [address] Care Team Providers Care Machinery Engineer Name Role Phone Avel Rivera MD Primary Care Provider Unav ailable Reason for Visit * Reason Onset Date Comments Other 05/18/2009 Encounter Details Date Type Department Care Team (Late st Contact Info) Description 05/18/[address] [id number] Avel Rivera MD Other Social History Tobacco [...] was sent in. She is checking with [facility]. * Telephone Encounter - Janusz Stefany - 05/18/2009 1310 EST PATIENT IS STILL WAITING FOR THIS TO BE CALLED INTO [facility]. THEY ARE THERE WAITING NOW FOR THE AMITRIPTYLENE. * Telephone Encounter - Christina Rudd - 05/18/2009 1214 EST Pt called from [facility] saying her Amitriptyline has not been called in there. She can be reached at [phone] ext [phone]. documented in this encounter Plan of Treatment Not on file documented as of this encounter Visit Diagnoses Not on filedocumented in this encounter Discontinued Medications Medication Sig Discontinue Reason Start Date End Da te amitriptyline (ELAVIL) 100 mg tablet Take 1 Tab by mouth at bedtime. Reorder 05/04/2009 05/18/2009 documented as of this encounter Care Teams Machinery Engineer Relationship Specialty Start Date End Date Avel Rivera MD PCP - General 09/03/08 07/10/09 documented as of this encounter
--- OUTSIDE RECORDS SUMMARY | 2024-05-18 17:01 | XMS_ITS | Encounter Summary ---
Author Organization [facility] Address [address] [place] [address] Care Team Providers Care Juvenile Justice Specialist Name Role Phone Kayleigh Peña Primary Care Provider [phone] Reason for Visit * Reason Comments Other URO Encounter Details Date Type Department Care Team (Latest Contact Info) Description 07/03/2011 11:00 EDT Office Visit [facility] Pel[facility] Medicine and Reconstructive Surgery - Medical Office [facility] [address] [place] [address] Tim Molina MD [address] [place] [phone] Female bladder prolapse (Primary Dx); Rectocele; [...] encounter Miscellaneous Notes * Scanned Note-Null - LINUX UNIX ENGINEER, SCAN 2 - 07/09/2011 1136 EDT documented [...] Ketones Neg Neg [facility] Specific Maynard 1.010 1.001 - 1.035 [facility] Blood Neg Neg [facility] pH 5.0 4.6 - 8.0 [facility] Protein Neg Neg [facility] Urobilinogen 0.2 0.2 - 1.0 E.U./dl [facility] Nitrite Neg Neg [facility] Leuk Esterase Neg Neg [facility] electrical accessories i assembler ID [id number] [facility] Comment:Test performed at [facility] Continence [place] Urine specimen (specimen) 07/03/2011 10:26 EDT 07/03/2011 10:35 EDT us Tim Molina MD POINT OF CARE TEST ORDERABL ES Final Result [facility] [address] [place] [address] documented in this encounter Visit Diagnoses Diagnosis [...] 07/02 documented in this encounter Care Teams Juvenile Justice Specialist Relationship Specialty Start Date End Date Kayleigh Peña PA [address] [facility] [address] [place] [address] PCP - General 05/16/11 08/19/11 documented as of this encounter
--- OUTSIDE RECORDS SUMMARY | 2024-05-18 17:01 | XMS_ITS | Encounter Summary ---
Author Organization [facility] Address [address] [place] [address] Care Team Providers Care General Lithographic Worker Name Role Phone Unknown, Provider Primary Care [...] Info) Description 05/18/2010 11:30 EST Office Visit [facility] ENT - [address] [address] Unknown, Provider, MD Jaeger, Montrell Holman MD [address] [place] [address] [address] LPRD (laryngopharyngeal reflux disease); Deviated [...] Montrell Jaeger MD - 05/23/2010 1635 EST [facility] - 05/18/2010 Kayleigh Peña SALES DEVELOPMENT ASSOCIATE [address] [place] [address], [address] [place] [address] Dear Jessearnel: This is a consult from [...] - THANIA Job ID: SM Doc ID: [id number] Ext Doc ID: [id number] cc: TOPHER Mackey documented in this encounter [...] 2 times daily with breakfast and dinner. [place]-3 Fatty Acids-Vitamin E (FISH OIL) 1,000 mg Cap Take by mouth daily. added in this encounter Care Teams General Lithographic Worker Relationship Specialty Start Date End Date Unknown, Provider, PCP - General 05/17/10 02/07/11 documented as of this encounter
--- OUTSIDE RECORDS SUMMARY | 2024-05-18 17:01 | XMS_ITS | Encounter Summary ---
Author Organization [facility] Address [address] [place] [address] Care Team Providers Care Lumber Salvager Name Role Phone Avel Rivera MD Primary Care Provider Unav ailable Encounter Details Date Type Department Care Team (Late st Contact Info) Description 07/28/2007 Before PRISM Converted Visit ([place]) [facility] - [place] conversion [address] [place] [address] Sharifa Britton, MEAT SUPERVISOR [address] [facility] [address] [place] [address] Social History Tobacco Use Types Packs/Day Years Used Date Smoking Tobacco: Never Assessed Comments Unknown Sex and Gender Information Value Date Recorded Sex Assigned at Not on file Legal Sex Female 18:18 EST Gender Identity Female 02/14/2022 14:15 EST Sexual Orientation Not on file documented as of this encounter Progress Notes * Sharifa Britton MD - 12/31/2008 0141 EDT [facility] PROGRESS/FOLLOWUP NOTE - 07/28/2007 ANA M Jarquin [...] plan. Signed by INDIRA Cruz 08/04/2007 14:52 IDNIRA Cruz - INDIRA Cruz [facility] Job ID: [id number] Document ID: [id number] cc: documented in this encounter Plan of Treatment Not on file documented as of this encounter Visit Diagnoses Not on filedocumented in this encounter Care Teams Lumber Salvager Relationship Specialty Start Date End Date Avel Rivera MD PCP - General 09/03/08 07/10/09 documented as of this encounter
--- OUTSIDE RECORDS SUMMARY | 2024-05-18 17:01 | XMS_ITS | Encounter Summary ---
Author Organization [facility] Address [address] [place] [address] Care Team Providers Care Athlete Marketing Agent Name Role Phone Agustin Ramires MD Primary Care Provider [phone] Kayleigh Peña Primary Care Provider [phone] Agustin Ramires MD Primary Care Provider [phone] Lizbet Zhang Primary Care Provider [phone] Encounter Details Date Type Department Care Team (Late st Contact Info) Description 04/11/2011 Historical Results Only [facility] - Main [place] [address] [place] [id number] Leland Boykin MD Social History Tobacco Use [...] (04/11/2011) 04/11/2011 04/12/2011 9:1 9 EST Narrative [facility] - 04/13/2011 8:50 EST ----- ------- Name: MILKA MENDIETA ?: 42 ?Age/Sex: 78/F ?Unit#: [id number] ? Loc: LAB.OPX ? Status: REG REF ?? Reg Date: 04/11/11 ? Pt.Phone Number: ? ----- ------- Specimen: [id number] ?STATUS: SOUT ?Spec Date:04/11/11 ? Physician Copies: ?Leland Boykin MD ?? Tissues: ? Urine (VOID) ? Kayleigh Peña CPT: 00150 ?? Units: ??1 ----- ------- ?? NON PICKING BELT OPERATOR CYTOLOGY DIAGNOSIS Urine, voided Benign urothelial cells, [...] Performed by [facility], [address] [place] [address] Rn Support Services: Namrata Childs MD PHD ----- ------- us Leland Boykin MD PATHOLOGY ORDERABLES Final Resul t [facility] documented in this encounter Visit Diagnoses Not on filedocumented in this encounter Care Teams Athlete Marketing Agent Relationship Specialty Start Date End Date Agustin Ramires MD [address] [address] [place] [phone] PCP - General 02/08/11 05/15/11 Kayleigh Peña PA [address] [facility] [address] [place] [address] PCP - General 05/16/11 08/19/11 Agustin Ramires MD [address] [address] [place] [phone] PCP - General 08/20/11 02/23/13 Lizbet Zhang FNP [address] [place] [id number] PCP - General 02/24/13 03/13/20 documented as of this encounter
--- OUTSIDE RECORDS SUMMARY | 2024-05-18 17:01 | XMS_ITS | Encounter Summary ---
Author Organization [facility] Address [address] [place] [address] Care Team Providers Care Automobile Contract Clerk Name Role Phone Unknown, Provider Primary Care Provider Agustin Anna MD Primary Care Provider [phone] Kayleigh Peña Primary Care Provider [phone] Agustin Ramires MD Primary Care Provider [phone] Lizbet Zhang INDUSTRIAL GAS PRODUCTION OPERATOR Primary Care Provider [phone] Salome Mcarthur ETYMOLOGY PROFESSOR Primary Care Provider [phone] Encounter Details Date Type Department Care Team (Late st Contact Info) Description 05/17/2010 Telephone [facility] [address] [place] [address] Montrell Jaeger MD [address] [place] [address] [address] [place] [address] Social History Tobacco Use Types [...] filedocumented in this encounter Care Teams Automobile Contract Clerk Relationship Specialty Start Date End Date Unknown, Provider, PCP - General 05/17/10 02/07/11 Agustin Ramires MD [address] [place] [phone] PCP - General 02/08/11 05/15/11 Kayleigh Peña PA [address] [place] [address] PCP - General 05/16/11 08/19/11 Agustin Ramires MD [address] [place] [phone] PCP - General 08/20/11 02/23/13 Lizbet Zhang FNP [address] [place], [place] [phone] PCP - General 02/24/13 03/13/20 Salome Mcarthur NP [address] [facility] [place], [place] [id number] PCP - General 03/14/20 documented as of this encounter
--- OUTSIDE RECORDS SUMMARY | 2024-05-18 17:01 | XMS_ITS | Encounter Summary ---
Author Organization [facility] Address [address] [place] [address] Care Team Providers Care Government Property Inspector Name Role Phone Agustin Ramires MD Primary Care Provider [phone] Unknown, Provider Primary Care Provider Unava ilable Agustin Ramires MD Primary Care Provider [phone] Kayleigh Peña Primary Care Provider + [phone] Agustin Ramires MD Primary Care Provider [phone] Lizbet Zhang MULE SPINNER Primary Care Provider + [phone] Encounter Details Date Type Department Care Team (Late st Contact Info) Description 03/08/[address] [facility] Lab - Main [address] [address] Leland Boykin MD Social History Tobacco Use [...] (03/08/2010) 03/08/2010 03/09/2010 10: 05 EST Narrative [facility] - 03/09/2010 14:09 EST ----- ------- Name: MILKA MENDIETA ?: 42 ?Age/Sex: 78/F ?Unit#: [id number] ? Loc: LAB.OPX ? Status: REG REF ?? Reg Date: 03/08/10 ? Pt.Phone Number: ? ----- ------- Specimen: [id number] ?STATUS: SOUT ?Spec Date:03/08/10 ? Physician Copies: ?Leland Boykin MD ?? Tissues: ? Urine (CLEAN CATCH URINE-VOIDED) ? CPT: 57537 ?? Units: ??1 ----- ------- ?? NON ADULT PAROLE OFFICER CYTOLOGY DIAGNOSIS Urine, voided: - No malignant [...] above diagnosis. Test Performed by [facility], [address] [place] [address] Aircraft Painter: Namrata Childs MD PHD ----- ------- Leland Boykin MD PATHOLOGY ORDERABLES Final Resul t [facility] documented in this encounter Visit Diagnoses Not on filedocumented in this encounter Care Teams Government Property Inspector Relationship Specialty Start Date End Date Agustin Ramires MD [address] [address] [place] [address] PCP - General 07/11/09 05/16/10 Unknown, Provider, PCP - General 05/17/10 02/07/11 Agustin Ramires MD [address] [address] [place] [address] PCP - General 02/08/11 05/15/11 Kayleigh Peña PA [address] [facility] [address] [place] [address] PCP - General 05/16/11 08/19/11 Agustin Ramires MD [address],[facility] [address] [place] [address] PCP - General 08/20/11 02/23/13 Lizbet Zhang FNP [address] [place] [address] PCP - General 02/24/13 03/13/20 documented as of this encounter
--- OUTSIDE RECORDS SUMMARY | 2024-05-18 17:01 | XMS_ITS | Encounter Summary ---
Author Organization [facility] Address [address] [place] [address] Care Team Providers Care Tugger Operator Name Role Phone Agustin Ramires MD Primary Care Provider [phone] Reason for Visit * Reason Comments Post-OP Follow Up weak stream Encounter Details Date Type Department Care Team (Latest Contact Info) Description 09/13/2011 11:[address] [facility] Pelvic Medicine and Reconstructive Surgery - Medical Office [facility] [address] [place] [address] Tim Molina MD [address] [place] [phone] Female bladder prolapse (Primary Dx); Rectocele; [...] Tim Molina MD - 09/14/2011 0858 EDT [facility] [place] [address] Telephone Toll-Free PROGRESS/FOLLOWUP NOTE - 09/13/2011 SUBJECTIVE: [...] next 6 weeks. Since I am leaving [place], she will need to follow up with an alternative urologist in the future and, of course, this could be Dr Ashutosh alcaraz or one of the urologists here at [facility] as needed. Electronically Signed by Tim Molina MD 09/18/2011 13:28 Tim Molina MD - Tim Molina MD - MLD Job ID: SM Doc ID: [id number] Ext Doc ID: [id number] cc: MD Leland Aburto MD * Tim [...] Ketones Neg Neg [facility] Specific [place] <=1.005 1.001 - 1.035 [facility] Blood Trace(A) Neg [facility] pH 5.0 4.6 - 8.0 [facility] Protein Neg Neg [facility] Urobilinogen 0.2 0.2 - 1.0 E.U./dl [facility] Nitrite Neg Neg [facility] Leuk Esterase 1+(A) Neg MAGY CURIEL [facility] supervisor food checkers and cashiers ID [id number] [facility] Comment:Test performed at [facility] Urine specimen (specimen) 09/13/2011 11:38 EDT 09/13/2011 11:44 EDT us Tim Molina MD POINT OF CARE TEST ORDERABL ES Final Result [facility] [address] [place] [address] documented in this encounter Visit Diagnoses Diagnosis Female bladder prolapse- Primary Cystocele, midline Rectocele Mixed incontinence urge and stress Mixed incontinence urge and stress (male)(female) documented in this encounter Care Teams Tugger Operator Relationship Specialty Start Date End Date Agustin Ramires MD [address] [place] [address] PCP - General 08/20/11 02/23/13 documented as of this encounter
--- OUTSIDE RECORDS SUMMARY | 2024-05-18 17:01 | XMS_ITS | Encounter Summary ---
Author Organization [facility] Address [address] [place] [address] Care Team Providers Care Solar Sales Associate Name Role Phone Avel Rivera MD Primary Care Provider Unav ailable Encounter Details Date Type Department Care Team (Late st Contact Info) Description 03/14/2006 Before PRISM Converted Visit (Maple) [facility] - Maple conversion [address] [place] [address] Tiara Mendez MD [phone] [place] [address] Social History Tobacco Use Types Packs/Day Years Used Date Smoking Tobacco: Never Assessed Comments Unknown Sex and Gender Information Value Date Recorded Sex Assigned at Not on file Legal Sex Female 18:18 EST Gender Identity Female 02/14/2022 14:15 EST Sexual Orientation Not on file documented as of this encounter Progress Notes * Tad, Conv Card Grinder Helper - 04/25/[address] [facility] PROGRESS/FOLLOWUP NOTE - 04/04/2006 Milka is here [...] Mendez MD P - sa Job ID: [id number] Document ID: [id number] * Alison Mishra Card Grinder Helper - 04/24/20091955 EST [facility] PROGRESS/FOLLOWUP NOTE - 03/14/2006 SUBJECTIVE: comes in [...] Mendez MD P - clr Job ID: [id number] Document ID: [id number] cc: documented in this encounter Plan of Treatment Not on file documented as of this encounter Visit Diagnoses Not on filedocumented in this encounter Care Teams Solar Sales Associate Relationship Specialty Start Date End Date Aevl Rivera MD PCP - General 09/03/08 07/10/09 documented as of this encounter
--- OUTSIDE RECORDS SUMMARY | 2024-05-18 17:01 | XMS_ITS | Encounter Summary ---
Author Organization [facility] Address [address] [place] [address] Care Team Providers Care Assembler Liquid Center Name Role Phone Avel Rivera MD Primary Care Provider Unav ailable Encounter Details Date Type Department Care Team (Late st Contact Info) Description 06/17/2006 Before PRISM Converted Visit (Maple) [facility] - Maple conversion [address] [place] [address] Tiara Mendez MD [phone] [place] [address] Social History Tobacco Use Types Packs/Day Years Used Date Smoking Tobacco: Never Assessed Comments Unknown Sex and Gender Information Value Date Recorded Sex Assigned at Not on file Legal Sex Female 18:18 EST Gender Identity Female 02/14/2022 14:15 EST Sexual Orientation Not on file documented as of this encounter Progress Notes * Tad, Conv Commercial Solar Sales Consultant - 02/08/2009 1252 EST [facility] PROGRESS/FOLLOWUP NOTE - 06/17/2006 ANA M Jarquin [...] a referral to the sleep clinic at [facility] for further evaluation and decide whether [...] Tiara Mendez MD 06/23/2006 12:40 [facility] Tiara Mendez MD P Job ID [id number] Sharron/nubia Doc ID [id number] cc: \* MERGEFORMAT Tiara Mendez MD P Job ID [id number] Sharron/nubia Doc ID [id number] cc: documented in this encounter Plan of Treatment Not on file documented as of this encounter Visit Diagnoses Not on filedocumented in this encounter Care Teams Assembler Liquid Center Relationship Specialty Start Date End Date Avel Rivera MD PCP - General 09/03/08 07/10/09 documented as of this encounter
--- OUTSIDE RECORDS SUMMARY | 2024-05-18 17:01 | XMS_ITS | Encounter Summary ---
Author Organization [facility] Address [address] [place] [address] Care Team Providers Care Movie Actor Name Role Phone Avel Rivera MD Primary Care Provider Unav ailable Encounter Details Date Type Department Care Team (Late st Contact Info) Description 03/30/2005 Before PRISM Converted Visit (Maple) [facility] - Maple conversion [address] [place] [address] Luis Fernando Kinsey MD [address] [place] [phone] Social History Tobacco Use Types Packs/Day Years Used Date Smoking Tobacco: Never Assessed Comments Unknown Sex and Gender Information Value Date Recorded Sex Assigned at Not on file Legal Sex Female 18:18 EST Gender Identity Female 02/14/2022 14:15 EST Sexual Orientation Not on file documented as of this encounter Progress Notes * Luis Fernando Kinsey - 06/09/20092105 EST [facility] PROGRESS/FOLLOWUP NOTE - 03/30/2005 REASON FOR [...] Kinsey MD A - clr Job ID: [id number] Document ID: [id number] cc: documented in this encounter Plan of Treatment Not on file documented as of this encounter Visit Diagnoses Not on filedocumented in this encounter Care Teams Movie Actor Relationship Specialty Start Date End Date Avel Rivera MD PCP - General 09/03/08 07/10/09 documented as of this encounter
--- OUTSIDE RECORDS SUMMARY | 2024-05-18 17:01 | XMS_ITS | Encounter Summary ---
Author Organization [facility] Address [address] [place] [address] Care Team Providers Care Business Change Manager Name Role Phone Avel Rivera MD Primary Care Provider Unav ailable Encounter Details Date Type Department Care Team (Late st Contact Info) Description 06/02/2007 Before PRISM Converted Visit (Maple) [facility] - Maple conversion [address] [place] [address] Tiara Mendez MD [phone] [place] [address] Social History Tobacco Use Types Packs/Day Years Used Date Smoking Tobacco: Never Assessed Comments Unknown Sex and Gender Information Value Date Recorded Sex Assigned at Not on file Legal Sex Female 18:18 EST Gender Identity Female 02/14/2022 14:15 EST Sexual Orientation Not on file documented as of this encounter Progress Notes * Tad, Conv Multi Operation Machine Operator - 12/29/2008 5429 EDT [facility] PROGRESS/FOLLOWUP NOTE - 06/02/2007 SUBJECTIVE comes in [...] 11:10 Tiara Mendez MD P Job ID [id number] T: 1:22 P/DIS Doc ID [id number] cc: P Job ID [id number] P/dis Doc ID [id number] cc: documented in this encounter Plan of Treatment Not on file documented as of this encounter Visit Diagnoses Not on filedocumented in this encounter Care Teams Business Change Manager Relationship Specialty Start Date End Date Avel Rivera MD PCP - General 09/03/08 07/10/09 documented as of this encounter
--- OUTSIDE RECORDS SUMMARY | 2024-05-18 17:01 | XMS_ITS | Encounter Summary ---
Author Organization [facility] Address [address] [place] [address] Care Team Providers Care Documentation Improvement Specialist Name Role Phone LeathaLizbet SUBSTATION OPERATOR Primary Care Provider [phone] Reason for Visit * Reason Comments New Patient Visit Encounter Details Date Type Department Care Team (Late st Contact Info) Description 02/24/2013 12:45 EST Office Visit [facility] Infectious Disease - [address] [id number] Nilo Baltazar MD [address] [place] [address], [address] [place] [address] Nubia Krause DO Candidiasis of [...] tumor removal 2007 Soc Hx: Lives in [place]. Denies smoking, drinking alcohol. Fam Hx: Cirrhosis [...] would be beneficial to get evaluated by FIELD OPERATIONS COORDINATOR, or if PCP could perform pelvic exam [...] like to have those drawn at [facility] on her next PCP visit): HgA1C (if not done), CBC with differential, Immunoglobulins, HIV Ab 3. FIELD OPERATIONS COORDINATOR eval for vaginal dryness/pelvic exam 4. F/u [...] mouth documented in this encounter Care Teams Documentation Improvement Specialist Relationship Specialty Start Date End Date Lizbet Zhang, INDIRA [facility] [place] [address] PCP - General 02/24/13 03/13/20 documented as of this encounter
--- OUTSIDE RECORDS SUMMARY | 2024-05-18 17:01 | XMS_ITS | Encounter Summary ---
Author Organization [facility] Address [address] [place] [address] Care Team Providers Care Meat Grader Name Role Phone Unknown, Provider Primary Care Provider Agustin Anna MD Primary Care Provider [phone] Kayleigh Peña Primary Care Provider [phone] Agustin Ramires MD Primary Care Provider [phone] Lizbet ZhangP Primary Care Provider [phone] Encounter Details Date Type Department Care Team (Late st Contact Info) Description 07/17/2010 Historical Results Only [facility] - Main [address] [address] Leland Boykin MD Social History Tobacco Use [...] (07/17/2010) 07/17/2010 07/18/2010 9:3 2 EDT Narrative [facility] - 07/21/2010 15:57 EDT ----- ------- Name: MILKA MENDIETA ?: 42 ?Age/Sex: 78/F ?Unit#: [id number] ? Loc: LAB.OPX ? Status: REG REF ?? Reg Date: 07/17/10 ? Pt.Phone Number: ? ----- ------- Specimen: [id number] ? STATUS: SOUT ?Spec Date:07/17/10 ? Physician Copies: ?Leland Boykin MD ?? Tissues: ? Urine (CLEAN CATCH) ? CPT: 75118 ?? Units: ??1 ----- ------- ?? NON TRAVEL SERVICE CONSULTANT CYTOLOGY DIAGNOSIS Urine,voided: ??Benign urothelial cells. ??Background [...] Test Performed by [facility], [address] [place] [address] [place] [address] Mix Technician: Namrata Childs MD PHD ----- ------- us Leland Boykin MD PATHOLOGY ORDERABLES Final Resul t [facility] documented in this encounter Visit Diagnoses Not on filedocumented in this encounter Care Teams Meat Grader Relationship Specialty Start Date End Date Unknown, Provider, PCP - General 05/17/10 02/07/11 Agustin Ramires MD [address],[facility] [address] [place] [address] PCP - General 02/08/11 05/15/11 Kayleigh Peña PA [address] [facility] [address] [place] [address] PCP - General 05/16/11 08/19/11 Agustin Ramires MD [address],[facility] [address] [place] [address] PCP - General 08/20/11 02/23/13 Lizbet Zhang FNP [address] [facility] [place] [id number] PCP - General 02/24/13 03/13/20 documented as of this encounter
--- OUTSIDE RECORDS SUMMARY | 2024-05-18 17:01 | XMS_ITS | Encounter Summary ---
Author Organization [facility] Address [address] [place] [address] Care Team Providers Care Fiber Optic Assembler Name Role Phone Unknown, Provider Primary Care Provider Agustin Anna MD Primary Care Provider [phone] Kayleigh Peña Primary Care Provider [phone] Agustin Ramires MD Primary Care Provider [phone] Lizbet ZhangP Primary Care Provider [phone] Encounter Details Date Type Department Care Team (Late st Contact Info) Description 09/13/2010 Historical Results Only [facility] - Main [address] [address] Leland Boykin MD Social History Tobacco Use [...] (09/13/2010) 09/13/2010 09/14/2010 9:1 8 EDT Narrative [facility] - 09/19/2010 16:59 EDT ----- ------- Name: MILKA MENDIETA ?: 42 ?Age/Sex: 78/F ?Unit#: [id number] ? Loc: LAB.OPX ? Status: REG REF ?? Reg Date: 09/14/10 ? Pt.Phone Number: ? ----- ------- Specimen: [id number] ? STATUS: SOUT ?Spec Date:09/13/10 ? Physician Copies: ?Leland Boykin MD ?? Tissues: ? Urine (VOID) ? CPT: 91533 ?? Units: ??1 ----- ------- ?? NON GAS EXAMINER CYTOLOGY DIAGNOSIS Urine, voided: - Cellular specimen [...] above diagnosis. Test Performed by [facility], [address] [place] [address] Chemical Unit Operator: Namrata Childs MD PHD ----- ------- Leland Boykin MD PATHOLOGY ORDERABLES Final Resul t [facility] documented in this encounter Visit Diagnoses Not on filedocumented in this encounter Care Teams Fiber Optic Assembler Relationship Specialty Start Date End Date Unknown, Provider, PCP - General 05/17/10 02/07/11 Agustin Ramires MD [address],[facility] 2 [place] [address] PCP - General 02/08/11 05/15/11 Kayleigh Peña PA [address] [place] [address] PCP - General 05/16/11 08/19/11 Agustin Ramires MD [address],[facility] 2 [place] [address] PCP - General 08/20/11 02/23/13 Lizbet Zhang FNP [address] [place], [place] [id number] PCP - General 02/24/13 03/13/20 documented as of this encounter
--- OUTSIDE RECORDS SUMMARY | 2024-05-18 17:01 | XMS_ITS | Encounter Summary ---
Author Organization [facility] Address [address] [place] [address] Care Team Providers Care Environmental Field Professional Name Role Phone Unavailable Primary Care Provider Unavailabl e Encounter Details Date Type Department Care Team (Latest Contact Info) Description 06/24/2008 23:22 EDT Hospital Encounter [facility] - Other [address] [place] [address] Anjel De La Torre MD Discharge Disposition: [...]
--- OUTSIDE RECORDS SUMMARY | 2024-05-18 17:01 | XMS_ITS | Encounter Summary ---
Author Organization [facility] Address [address] [place] [address] Care Team Providers Care Immigration Guard Name Role Phone Avel Rivera MD Primary Care Provider Unav ailable Encounter Details Date Type Department Care Team (Late st Contact Info) Description 05/22/2007 Before PRISM Converted Visit (Maple) [facility] - Maple conversion [address] [place] [address] Tiara Mendez MD [phone] [place] [address] Social History Tobacco Use Types Packs/Day Years Used Date Smoking Tobacco: Never Assessed Comments Unknown Sex and Gender Information Value Date Recorded Sex Assigned at Not on file Legal Sex Female 18:18 EST Gender Identity Female 02/14/2022 14:15 EST Sexual Orientation Not on file documented as of this encounter Progress Notes * Tad, Conv Log Inspector - 02/16/2009 1242 EST [facility] PROGRESS/FOLLOWUP NOTE - 05/22/2007 ANA M Jarquin [...] 08:15 Tiara Mendez MD P Job ID [id number] Sharron/[facility] Doc ID [id number] cc: documented in this encounter Plan of Treatment Not on file documented as of this encounter Visit Diagnoses Not on filedocumented in this encounter Care Teams Immigration Guard Relationship Specialty Start Date End Date Avel Rivera MD PCP - General 09/03/08 07/10/09 documented as of this encounter
--- OUTSIDE RECORDS SUMMARY | 2024-05-18 17:01 | XMS_ITS | Encounter Summary ---
Author Organization [facility] Address [address] [place] [address] Care Team Providers Care Consultant Electronics Name Role Phone Agustin Ramires MD Primary Care Provider [phone] Unknown, Provider Primary Care Provider Unava ilable Agustin Ramires MD Primary Care Provider [phone] Kayleigh Peña Primary Care Provider + [phone] Agustin Ramires MD Primary Care Provider [phone] Lizbet Zhang BAKERY CLERK Primary Care Provider + [phone] Encounter Details Date Type Department Care Team (Late st Contact Info) Description 11/09/2009 Historical Results Only [facility] - Main [address] [address] Leland Boykin MD Social History Tobacco Use [...] (11/09/2009) 11/09/2009 11/09/2009 17: 51 EDT Narrative [facility] - 11/10/2009 13:18 EDT ----- ------- Name: MILKA MENDIETA ?: 42 ?Age/Sex: 78/F ?Unit#: [id number] ? Loc: LAB.OPX ? Status: REG REF ?? Reg Date: 11/09/09 ? Pt.Phone Number: ? ----- ------- Specimen: [id number] ? STATUS: SOUT ?Spec Date:11/09/09 ? Physician Copies: ?Leland Boykin MD ?? Tissues: ? Urine (CLEAN CATCH) ? CPT: 14878 ?? Units: ??1 ----- ------- ?? NON ELECTRONICS TEST ENGINEER CYTOLOGY DIAGNOSIS URINE, VOIDED Benign urothelial cells. [...] Performed by [facility], [address] [facility] [place] [address] Bad Credit Collector: Namrata Childs MD PHD ----- ------- us Leland Boykin MD PATHOLOGY ORDERABLES Final Resul t [facility] documented in this encounter Visit Diagnoses Not on filedocumented in this encounter Care Teams Consultant Electronics Relationship Specialty Start Date End Date Agustin Ramires MD [address],[facility] 2 [place] [address] PCP - General 07/11/09 05/16/10 Unknown, Provider, PCP - General 05/17/10 02/07/11 Agustin Ramires MD [address],[facility] 2 [place] [address] PCP - General 02/08/11 05/15/11 Kayleigh Peña PA [address] [facility] [address] [place] [address] PCP - General 05/16/11 08/19/11 Agustin Ramires MD [address],[facility] 2 [place] [address] PCP - General 08/20/11 02/23/13 Lizbet Zhang FNP [address] [place] [address] PCP - General 02/24/13 03/13/20 documented as of this encounter
--- OUTSIDE RECORDS SUMMARY | 2024-05-18 17:01 | XMS_ITS | Encounter Summary ---
Author Organization [facility] Address [address] [place] [address] Care Team Providers Care High School Foreign Language Tutor Name Role Phone Kayleigh Peña Primary Care Provider [phone] Reason for Visit * Reason Comments Other incomplete empyting Encounter Details Date Type Department Care Team (Latest Contact Info) Description 05/17/2011 11:00 EST Office Visit [facility] Pelvic Medicine and Reconstructive Surgery - Medical Office [facility] [address] [place] [address] Tim Molina MD [address] [place] [phone] Female bladder prolapse (Primary Dx); Rectocele; [...] MD - 05/21/2011 0709 EST [facility] [address] [place], [place] [id number] Telephone Toll-Free PROGRESS/FOLLOWUP NOTE - 05/17/2011 HISTORY [...] Molina MD - Tim Molina MD - [facility] Job ID: SM Doc ID: [id number] Ext Doc ID: [id number] cc: TOPHER Mackey MD * Tim Molina [...] mg by mouth daily as needed. ??? [place]-3 Fatty Acids-Vitamin E (FISH OIL) 1,000 mg [...] MD * Tim Molina MD - 05/18/2011 1859 EST Dictated. Past Medical history, past surgical [...] Ketones Neg Neg [facility] Specific [place] 1.010 1.001 - 1.035 [facility] Blood Neg Neg [facility] pH 7.5 4.6 - 8.0 [facility] Protein Neg Neg [facility] Urobilinogen 0.2 0.2 - 1.0 E.U./dl [facility] Nitrite Neg Neg [facility] Leuk Esterase Neg Neg FLEMATTHEW ER [facility] site safety representative ID [id number] [facility] Comment:[facility] Urine specimen (specimen) 05/17/2011 11:35 EST 05/17/2011 11:44 EST Tim Molina MD POINT OF CARE TEST ORDERABL ES Final Result [facility] [address] [place] [address] documented in this encounter Visit Diagnoses Diagnosis Female bladder prolapse- Primary Cystocele, midline Rectocele Mixed incontinence urge and stress Mixed incontinence urge and stress (male)(female) documented in this encounter Care Teams High School Foreign Language Tutor Relationship Specialty Start Date End Date Kayleigh Peña PA [address] [place] [address] PCP - General 05/16/11 08/19/11 documented as of this encounter
--- OUTSIDE RECORDS SUMMARY | 2024-05-18 17:01 | XMS_ITS | Encounter Summary ---
Author Organization [facility] Address [address] [place] [address] Care Team Providers Care Rail Transportation Operator Name Role Phone Lizbet Zhang Primary Care Provider [phone] Encounter Details Date Type Department Care Team (Late st Contact Info) Description 01/19/2014 Orders Only [facility] Infectious Disease - [address] [id number] Pino Oleary, TRISHA Social History Tobacco Use [...] filedocumented in this encounter Care Teams Rail Transportation Operator Relationship Specialty Start Date End Date Lizbet Zhang FNP [address] [place], [place] [address] PCP - General 02/24/13 03/13/20 documented as of this encounter
--- OUTSIDE RECORDS SUMMARY | 2024-05-18 17:01 | XMS_ITS | Encounter Summary ---
Author Organization [facility] Address [address] [place] [address] Care Team Providers Care Digital Print Operator Name Role Phone Avel Rivera MD Primary Care Provider Unav ailable Encounter Details Date Type Department Care Team (Late st Contact Info) Description 04/25/2007 Before PRISM Converted Visit (Maple) [facility] - Maple conversion [address] [place] [address] Tiara Mendez MD [phone] [place] [address] Social History Tobacco Use Types Packs/Day Years Used Date Smoking Tobacco: Never Assessed Comments Unknown Sex and Gender Information Value Date Recorded Sex Assigned at Not on file Legal Sex Female 18:18 EST Gender Identity Female 02/14/2022 14:15 EST Sexual Orientation Not on file documented as of this encounter Progress Notes * Tad, Alison Medical Care Administrator - 02/16/2009 1357 EST [facility] PROGRESS/FOLLOWUP NOTE - 05/09/2007 ANA M Jarquin [...] 08:52 Tiara Mendez MD P Job ID [id number] T: 6:02 P/JG Doc ID [id number] cc: P Job ID [id number] P/jg Doc ID [id number] cc: * Alison Mishra Medical Care Administrator - 02/16/2009 [address]49 EST [facility] PROGRESS/FOLLOWUP NOTE - 04/25/2007 ANA M Jarquin [...] 09:42 Tiara Mendez MD P Job ID [id number] T: 5:05 A/jennie Doc ID [id number] cc: cc: documented in this encounter Plan of Treatment Not on file documented as of this encounter Visit Diagnoses Not on filedocumented in this encounter Care Teams Digital Print Operator Relationship Specialty Start Date End Date Avel Rivera MD PCP - General 09/03/08 07/10/09 documented as of this encounter
--- OUTSIDE RECORDS SUMMARY | 2024-05-18 17:01 | XMS_ITS | Encounter Summary ---
Author Organization [facility] Address [address] [place] [address] Care Team Providers Care Radio Talk Show Host Name Role Phone Agustin Ramires MD Primary Care Provider [phone] Avel Rivera MD Primary Care Provider Unav ailable Unknown, Provider Primary Care Provider Unava ilable Agustin Ramires MD Primary Care Provider [phone] Kayleigh Peña Primary Care Provider + [phone] Agustin Ramires MD Primary Care Provider [phone] Lizbet Zhang UPHOLSTERY CLEANER Primary Care Provider + [phone] Encounter Details Date Type Department Care Team (Late st Contact Info) Description 04/29/2009 Historical Results Only [facility] - Main [place] [address] [place] [address] Leland Boykin MD Social History Tobacco Use [...] (04/29/2009) 04/29/2009 05/02/2009 10: [address] [facility] - 05/03/2009 9:10 EST ----- ------- Name: MILKA MENDIETA ?: 42 ?Age/Sex: 78/F ?Unit#: [id number] ? Loc: LAB.OPX ? Status: REG REF ?? Reg Date: 04/29/09 ? Pt.Phone Number: ? ----- ------- Specimen: [id number] ?STATUS: SOUT ?Spec Date:04/29/09 ? Physician Copies: ?Leland Boykin MD ?? Tissues: ? Urine (CLEAN CATCH) ? CPT: 89559 ?? Units: ??1 ----- ------- ?? NON HAND TOOL FILER CYTOLOGY DIAGNOSIS Urine,voided: Benign squamous cells and [...] confirmed the above diagnosis. Test Performed by [facility], [address] [place] [address] Bagging Salvager: Namrata Childs MD PHD ----- ------- Leland Boykin MD PATHOLOGY ORDERABLES Final Resul t [facility] documented in this encounter Visit Diagnoses Not on filedocumented in this encounter Care Teams Radio Talk Show Host Relationship Specialty Start Date End Date Agustin Ramires MD [address] [address] PCP - General 07/11/09 05/16/10 Avel Rivera MD PCP - General 09/03/08 07/10/09 Deandre, MD Nkechi PCP - General 05/17/10 02/07/11 Agustin Ramires MD [address] [address] PCP - General 02/08/11 05/15/11 Kayleigh Peña PA [address] [facility] [address] [place] [address] PCP - General 05/16/11 08/19/11 Agustin Ramires MD [facility] [address] [address] PCP - General 08/20/11 02/23/13 Lizbet Zhang FNP [address] [place], [place] [id number] PCP - General 02/24/13 03/13/20 documented as of this encounter
--- OUTSIDE RECORDS SUMMARY | 2024-05-18 17:01 | XMS_ITS | Encounter Summary ---
Author Organization [facility] Address [address] [place] [address] Care Team Providers Care Informatica Mdm Architect Name Role Phone Agustin Ramires MD Primary Care Provider [phone] Encounter Details Date Type Department Care Team (Late st Contact Info) Description 04/21/2010 Abstract Used for ABSTRACTING Data [phone] Agustin Ramires MD [address] [place] [address] Social History Tobacco Use Types Packs/Day [...] on filedocumented in this encounter Care Teams Informatica Mdm Architect Relationship Specialty Start Date End Date Agustin Ramires MD [address] [place] [address] PCP - General 07/11/09 05/16/10 documented as of this encounter
--- OUTSIDE RECORDS SUMMARY | 2024-05-18 17:01 | XMS_ITS | Encounter Summary ---
Author Organization [facility] Address [address] [place] [address] Care Team Providers Care Hearing Aide Technician Name Role Phone Agustin Ramires MD Primary Care Provider [phone] Avel Rivera MD Primary Care Provider Unav ailable Unknown, Provider Primary Care Provider Unava ilable Agustin Ramires MD Primary Care Provider [phone] Kayleigh Peña Primary Care Provider [phone] Agustin Ramires MD Primary Care Provider [phone] Lizbet Zhang PSYCHIATRIC SOCIAL WORKER Primary Care Provider + [phone] Encounter Details Date Type Department Care Team (Late st Contact Info) Description 05/10/2009 Historical Results Only [facility] - Main [place] [address] [place] [address] Leland Boykin MD Social History Tobacco Use [...] (05/10/2009) 05/10/2009 05/10/2009 11: 28 EST Narrative [facility] - 05/11/2009 13:51 EST ----- ------- Name: MILKA MENDIETA ?: 42 ?Age/Sex: 78/F ?Unit#: [id number] ? Loc: SDS ? Status: DEP SDC ?? Reg Date: 05/10/09 ? Pt.Phone Number: ? ----- ------- Specimen: [id number] ?STATUS: SOUT ?Spec Date:05/10/09 ? Physician Copies: ?Leland Boykin MD ?? Tissues: A ?? Urinary Tract (BLADDER DOME) ? CPT: 22217 ?? Units: ??1 ?FINAL DIAGNOSIS ? Bladder, [...] diagnosis. Test Performed by [facility], [address] [place], [place] [id number] Construction Foreman: Namrata Childs MD PHD ----- ------- Leland Boykin MD PATHOLOGY ORDERABLES Final Resul t [facility] documented in this encounter Visit Diagnoses Not on filedocumented in this encounter Care Teams Hearing Aide Technician Relationship Specialty Start Date End Date Agustin Ramires MD [address] [phone] PCP - General 07/11/09 05/16/10 Avel Rivera MD PCP - General 09/03/08 07/10/09 Unknown, MD Nkechi PCP - General 05/17/10 02/07/11 Agustin Ramires MD [address] [address] [place] [phone] PCP - General 02/08/11 05/15/11 Kayleigh Peña PA [address] [place] [address] PCP - General 05/16/11 08/19/11 Agustin Ramires MD [address] [address] [place] [phone] PCP - General 08/20/11 02/23/13 Lizbet Zhang, INDIRA [address] [place], [place] [address] PCP - General 02/24/13 03/13/20 documented as of this encounter
--- OUTSIDE RECORDS SUMMARY | 2024-05-18 17:01 | XMS_ITS | Encounter Summary ---
Author Organization [facility] Address [address] [place] [address] Care Team Providers Care Assignment Manager Name Role Phone Avel Rivera MD Primary Care Provider Unav ailable Encounter Details Date Type Department Care Team (Late st Contact Info) Description 12/12/2005 Before PRISM Converted Visit (Maple) [facility] - Maple conversion [address] [place] [address] Tiara Mendez MD [phone] [place] [address] Social History Tobacco Use Types Packs/Day Years Used Date Smoking Tobacco: Never Assessed Comments Unknown Sex and Gender Information Value Date Recorded Sex Assigned at Not on file Legal Sex Female 18:18 EST Gender Identity Female 02/14/2022 14:15 EST Sexual Orientation Not on file documented as of this encounter Progress Notes * Tad, Conv Powered Bridge Specialist - 04/14/2009 0817 EST [facility] PROGRESS/FOLLOWUP NOTE - 12/12/2005 S: [...] Mendez MD P - prs Job ID: [id number] Document ID: [id number] cc: - Tiara Mendez MD P - prs Job ID: [id number] Document ID: [id number] cc: documented in this encounter Plan of Treatment Not on file documented as of this encounter Visit Diagnoses Not on filedocumented in this encounter Care Teams Assignment Manager Relationship Specialty Start Date End Date Avel Rivera MD PCP - General 5/29/09 4/4/10 documented as of this encounter
--- OUTSIDE RECORDS SUMMARY | 2024-05-18 17:01 | XMS_ITS | Encounter Summary ---
Author Organization [facility] Address [address] [place] [address] Care Team Providers Care Saddle Cutter Name Role Phone Avel Rivera MD Primary Care Provider Unav ailable Encounter Details Date Type Department Care Team (Late st Contact Info) Description 11/05/2007 Before PRISM Converted Visit (Maple) [facility] - Maple conversion [address] [place] [address] Avel Rivera MD Social History Tobacco Use Types Packs/Day Years Used Date Smoking Tobacco: Never Assessed Comments Unknown Sex and Gender Information Value Date Recorded Sex Assigned at Not on file Legal Sex Female 18:18 EST Gender Identity Female 02/14/2022 14:15 EST Sexual Orientation Not on file documented as of this encounter Progress Notes * Avel Rivera MD - 01/07/2009 1202 EDT [facility] PROGRESS/FOLLOWUP NOTE - 11/05/2007 PROBLEM Foot pain. [...] 12:03 Avel Rivera MD P Job ID [id number] P/FELY Doc ID [id number] cc: cc: documented in this encounter Plan of Treatment Not on file documented as of this encounter Visit Diagnoses Not on filedocumented in this encounter Care Teams Saddle Cutter Relationship Specialty Start Date End Date Avel Rivera MD PCP - General 09/03/08 07/10/09 documented as of this encounter
--- OUTSIDE RECORDS SUMMARY | 2024-05-18 17:01 | XMS_ITS | Encounter Summary ---
Author Organization [facility] Address [address] [place] [address] Care Team Providers Care Car Manager Name Role Phone LeathaLizbet STOPPER SETTER Primary Care Provider [phone] Encounter Details Date Type Department Care Team (Latest Contact Info) Description 05/04/2013 17:05 EST - 05/04/2013 23:59 EST Hospital Encounter [facility] [address] [place] [address] Unknown, Provider, MD Discharge Disposition: Home or [...] 1 Tab by mouth daily before breakfast. [place]-3 Fatty Acids-Vitamin E (FISH OIL) 1,000 mg [...] filedocumented in this encounter Care Teams Car Manager Relationship Specialty Start Date End Date Lizbet Zhang FNP [address] [place] [address] PCP - General 02/24/13 03/13/20 documented as of this encounter
--- OUTSIDE RECORDS SUMMARY | 2024-05-18 17:01 | XMS_ITS | Encounter Summary ---
Author Organization [facility] Address [address] [place] [address] Care Team Providers Care Prize Coordinator Name Role Phone Avel Rivera MD Primary Care Provider Unav ailable Encounter Details Date Type Department Care Team (Late st Contact Info) Description 03/09/[address] [address] Avel Rivera MD Hypertension; DM (Diabetes Mellitus) ([facility]) ([facility]); PPD Positive; IBS (Irritable Bowel Syndrome); Hyperlipidemia; [...] Hypertension Unspecified essential hypertension DM (diabetes mellitus) ([facility]) Type II or unspecified type [...] 05/04/2009 added in this encounter Care Teams Prize Coordinator Relationship Specialty Start Date End Date Avel Rivera MD PCP - General 09/03/08 07/10/09 documented as of this encounter
--- OUTSIDE RECORDS SUMMARY | 2024-05-18 17:01 | XMS_ITS | Encounter Summary ---
Author Organization [facility] Address [address] [place] [address] Care Team Providers Care Online Tutor Name Role Phone Avel Rivera MD Primary Care Provider Unav ailable Encounter Details Date Type Department Care Team (Late st Contact Info) Description 12/15/2007 Before PRISM Converted Visit (Maple) [facility] - Maple conversion [address] [place] [address] Avel Rivera MD Social History Tobacco Use Types Packs/Day Years Used Date Smoking Tobacco: Never Assessed Comments Unknown Sex and Gender Information Value Date Recorded Sex Assigned at Not on file Legal Sex Female 18:18 EST Gender Identity Female 02/14/2022 14:15 EST Sexual Orientation Not on file documented as of this encounter Progress Notes * Avel Rivera MD - 10/30/2008 0646 EDT [facility] PROGRESS/FOLLOWUP NOTE - 01/12/2008 PROBLEM Bronchitis, diabetes [...] 11:18 Avel Rivera MD P Job ID [id number] /[facility] Doc ID [id number] cc: * Avel Rivera MD - 10/30/2008 0513 EDT [facility] PROGRESS/FOLLOWUP NOTE - 12/15/2007 PROBLEM Cough. SUBJECTIVE [...] 17:31 Avel Rivera MD A Job ID [id number] A/[facility] Doc ID [id number] cc: documented in this encounter Plan of Treatment Not on file documented as of this encounter Visit Diagnoses Not on filedocumented in this encounter Care Teams Online Tutor Relationship Specialty Start Date End Date Avel Rivera MD PCP - General 09/03/08 07/10/09 documented as of this encounter
--- OUTSIDE RECORDS SUMMARY | 2024-05-18 17:01 | XMS_ITS | Encounter Summary ---
Author Organization [facility] Address [address] [place] [address] Care Team Providers Care Engine Repairer Service Name Role Phone Agustin Ramires MD Primary Care Provider [phone] Reason for Visit * Reason Comments Wound Infection Wound check Encounter Details Date Type Department Care Team (Late st Contact Info) Description 08/31/2011 13:30 EDT Nurse Only [facility] Pelvic Medicine and Reconstructive Surgery - Medical Office [facility] [address] [place] [address] Unknown, Provider, Tim Martínez MD [address] [place] [phone] Nurse, [facility] Mob Pelvic Med Social History Tobacco [...] documented as of this encounter Care Teams Engine Repairer Service Relationship Specialty Start Date End Date Agustin Ramires MD [facility] [address],[facility] [address] [place] [phone] PCP - General 08/20/11 02/23/13 documented as of this encounter
--- OUTSIDE RECORDS SUMMARY | 2024-05-18 17:01 | XMS_ITS | Encounter Summary ---
Author Organization [facility] Address [address] [place] [address] Care Team Providers Care Hot Box Spotter Name Role Phone Avel Rivera MD Primary Care Provider Unav ailable Encounter Details Date Type Department Care Team (Late st Contact Info) Description 08/27/2007 Office Visit [facility] Ophthalmology - [place] [address] [place] [address] Tamica Maldonado MD [address] [place] [address] Discharge Disposition: Auto Discharge Social History [...] - 12/30/2008 0122 EDT DIVISION OF OPHTHALMOLOGY [facility] CON[facility] - 08/27/2007 Adi Martinez MD [address] [place] [address] [address] [place] [address] Dear Adi: Thank you for referring Milka [...] with today.Because Ms. Corbett comes from [facility], she has asked if she may follow up with you following the laser and I think this is very reasonable.If you have any questions or concerns, please do not hesitate to contact me. Yours sincerely, Signed by Tamica Maldonado MD 09/04/2007 08:58 Tamica Maldonado MD [facility] - Retina and Vitreous Service [address] [place] [address] - Tamica Maldonado MD - DV Job ID: [id number] Doc ID: [id number] cc: Adi Martinez MD documented in this encounter Plan of Treatment Not on file documented as of this encounter Visit Diagnoses Not on filedocumented in this encounter Care Teams Hot Box Spotter Relationship Specialty Start Date End Date Avel Rivera MD PCP - General 09/03/08 07/10/09 documented as of this encounter
--- OUTSIDE RECORDS SUMMARY | 2024-05-18 17:01 | XMS_ITS | Encounter Summary ---
Author Organization [facility] Address [address] [place] [address] Care Team Providers Care Torch Cutter Name Role Phone Avel Rivera MD Primary Care Provider Unav ailable Encounter Details Date Type Department Care Team (Late st Contact Info) Description 05/06/2007 Before PRISM Converted Visit (Maple) [facility] - Maple conversion [address] [place] [address] Maria Elena Falcon MD Social History Tobacco [...] Elena Falcon MD - 02/15/2009 0659 EST [facility] PROGRESS/FOLLOWUP NOTE - 05/06/2007 ANA M Jarquin [...] Maria Elena Falcon MD P Job ID [id number] T: 7:21 A/KAMALA Doc ID [id number] cc: ctd/kamala Doc ID [id number] cc: documented in this encounter Plan of Treatment Not on file documented as of this encounter Visit Diagnoses Not on filedocumented in this encounter Care Teams Torch Cutter Relationship Specialty Start Date End Date Avel Rivera MD PCP - General 09/03/08 07/10/09 documented as of this encounter
--- OUTSIDE RECORDS SUMMARY | 2024-05-18 17:01 | XMS_ITS | Encounter Summary ---
Author Organization [facility] Address [address] [place] [address] Care Team Providers Care Chief Digital Officer Name Role Phone LeathaLizbet METAL MOULDER Primary Care Provider [phone] Encounter Details Date Type Department Care Team (Latest Contact Info) Description 12/03/2013 12:35 EDT - 12/03/2013 23:59 EDT Hospital Encounter [facility] [address] [place] [address] Unknown, Provider, MD Discharge Disposition: Home or [...] 1 Tab by mouth daily before breakfast. [place]-3 Fatty Acids-Vitamin E (FISH OIL) 1,000 mg [...] filedocumented in this encounter Care Teams Chief Digital Officer Relationship Specialty Start Date End Date Lizbet Zhang FNP [address] [place] [address] PCP - General 02/24/13 03/13/20 documented as of this encounter
--- OUTSIDE RECORDS SUMMARY | 2024-05-18 17:01 | XMS_ITS | Encounter Summary ---
Author Organization [facility] Address [address] [place] [address] Care Team Providers Care Flour Inspector Name Role Phone Avel Rivera MD [...] Info) Description 06/06/2009 13:30 EST Office Visit [facility] [address] [address] Avel Rivera MD Vertigo; Hypertension; DM (diabetes mellitus) (CMS-HCC) ([facility]); Hyperlipidemia; Lumbar sprain and strain Social History [...] Avel Rivera MD - 06/08/2009 0710 EST [facility] PROGRESS/FOLLOWUP NOTE - 06/06/2009 PROBLEM: Vertigo, hypertension, [...] - KATER[place] Job ID: SM Doc ID: [id number] Doc ID: [id number] cc: * Avel Rivera MD - 06/06/2009 [...] Hypertension Unspecified essential hypertension DM (diabetes mellitus) ([facility]) Type II or unspecified type [...] documented as of this encounter Care Teams Flour Inspector Relationship Specialty Start Date End Date Avel Rivera MD PCP - General 09/03/08 07/10/09 documented as of this encounter
--- OUTSIDE RECORDS SUMMARY | 2024-05-18 17:01 | XMS_ITS | Encounter Summary ---
Author Organization [facility] Address [address] [place] [address] Care Team Providers Care Shaper Operator Name Role Phone Avel Rivera MD Primary Care Provider Unav ailable Encounter Details Date Type Department Care Team (Late st Contact Info) Description 06/14/2005 Before PRISM Converted Visit (Maple) [facility] - Maple conversion [address] [place] [address] Tiara Mendez MD [address] [place] [address] Social History Tobacco Use Types Packs/Day Years Used Date Smoking Tobacco: Never Assessed Comments Unknown Sex and Gender Information Value Date Recorded Sex Assigned at Not on file Legal Sex Female 18:18 EST Gender Identity Female 02/14/2022 14:15 EST Sexual Orientation Not on file documented as of this encounter Progress Notes * Tad, Conv Archeologist Classical - 03/17/2009 2347 EST [facility] PROGRESS/FOLLOWUP NOTE - 06/14/2005 SUBJECTIVE: Milka is here because she has been ill for the past week to two. She complains of nasal congestion, sore throat, headache, otalgia, and ???pressure in her lungs.?? She has not really been able to bring up anything when coughing. She has tried several ptba-qkb-vmnmnnz medications without much improvement. She also complains [...] 875 b.i.d. for ten days. Continue with zkft-vei-zezosix medications. Problem #2: Left upper quadrant pain intermittently which is likely gastrointestinal in origin. PLAN: I will have her try either an H2 reva or PPI bvpe-vqb-hggijuz to see if her symptoms improve. Problem [...] medication if not improving soon. Signed by iTara Mendez MD 06/18/2005 18:37 Luke Dukes MD Tiara Mendez MD - Tiara Mendez MD P - clr Job ID: [id number] Document ID: [id number] cc: documented in this encounter Plan of Treatment Not on file documented as of this encounter Visit Diagnoses Not on filedocumented in this encounter Care Teams Shaper Operator Relationship Specialty Start Date End Date Avel Rivera MD PCP - General 09/03/08 07/10/09 documented as of this encounter
--- OUTSIDE RECORDS SUMMARY | 2024-05-18 17:01 | XMS_ITS | Encounter Summary ---
Author Organization [facility] Address [address] [place] [address] Care Team Providers Care Barkeep Name Role Phone Unknown, Provider Primary Care Provider Agustin Anna MD Primary Care Provider [phone] Kayleigh Peña Primary Care Provider [phone] Agustin Ramires MD Primary Care Provider [phone] Lizbet ZhangP Primary Care Provider [phone] Encounter Details Date Type Department Care Team (Late st Contact Info) Description 09/19/2010 Historical Results Only [facility] [place] [address] [address] Leland Boykin MD Social History Tobacco Use [...] (09/19/2010) 09/19/2010 09/20/2010 9:2 0 EDT Narrative [facility] - 09/21/2010 10:55 EDT ----- ------- Name: MILKA MENDIETA ?: 42 ?Age/Sex: 78/F ?Unit#: [id number] ? Loc: LAB.OPX ? Status: REG REF ?? Reg Date: 09/20/10 ? Pt.Phone Number: ? ----- ------- Specimen: [id number] ? STATUS: SOUT ?Spec Date:09/19/10 ? Physician Copies: ?Leland Boykin MD ?? Tissues: ? Urine (bladder) ? CPT: 46716 ?? Units: ??1 ----- ------- ?? NON DIRECTOR CARDIAC CYTOLOGY DIAGNOSIS Urine,bladder: Benign urothelial cells. ----- [...] above diagnosis. Test Performed by [facility], [address] [facility] [address] Strategic Partnership Manager: Namrata Childs MD PHD ----- ------- us Leland Boykin MD PATHOLOGY ORDERABLES Final Resul t [facility] documented in this encounter Visit Diagnoses Not on filedocumented in this encounter Care Teams Barkeep Relationship Specialty Start Date End Date Unknown, Provider, PCP - General 05/17/10 02/07/11 Agustin Ramires MD [address] [place] [phone] PCP - General 02/08/11 05/15/11 Kayleigh Peña PA [address] [place] [address] PCP - General 05/16/11 08/19/11 Agustin Ramires MD [address] [place] [phone] PCP - General 08/20/11 02/23/13 Lizbet Zhang FNP [id number] [facility] [place] [phone] PCP - General 02/24/13 03/13/20 documented as of this encounter
--- OUTSIDE RECORDS SUMMARY | 2024-05-18 17:02 | XMS_ITS ---
Author Organization Unknown Address [address] [place] [phone] Phone Care Team Providers Care Psychiatric Attendant Name Role Phone HANSA RODRIGUEZ MD Attending Unavailable JOHN PETERSON Primary Unavailable Results URINALYSIS ROUTINE - Collect Date/Time: 11/17/2020 15:00 [facility] ID: [id number] [address] [place], [place], [address] LOINC: Test Value Unit Reference Range Code Code System Flag COLLECTION MODE: CLEAN CATCH Color ORANGE yellow 5778-6 LOINC Appearance HAZY clear 5767-9 LOINC Glucose urine DNR negative mg/dl 25311-0 LOINC Bilirubin DNR negative 5770-3 LOINC Ketones DNR negative mg/dl 2514-8 LOINC Spec gravity DNR 1.003 - 1.030 5811-5 LOINC pH urine DNR 5.0 - 7.0 2756-5 LOINC Protein DNR negative mg/dl 52475-1 LOINC Urobilinogen DNR <or= 1 EU/dl 24192-2 LOINC Nitrite DNR negative 5802-4 LOINC Blood DNR negative 5794-3 LOINC Leukocytes DNR negative 97800-4 LOINC MICROSCOPIC* INDICATED WBCs 25-100 0-5 / hpf 96707-8 LOINC RBCs 5-10 0-5 / hpf 33861-3 LOINC Epith cells none 0-5 / hpf 73617-8 LOINC Crystals none none Bacteria large none Mucus none none 8247-9 LOINC Casts none none /lpf 61361-1 LOINC Other 62886-9 LOINC CORRECTED CORRECTED Social History Type Status Start Date End Date Code Code Syst em Smoking History Never smoker (Never Smoked) [id number] SNOMED CT Sex Female Medications Medication Start Date End Date Route Frequency Dose Code Code System Medication Instructions Home Meds Amitriptyline 50MG Oral Tablet 08/20/2019 01/02/2022 ORAL BEDTIME 50 MILLIGRAMS 738379 RxNorm TAKE 50 MILLIGRAMS ORAL BEDTIME Atorvastatin Calcium 20MG Oral Tablet 08/20/2019 Unknown ORAL BEDTIME 20 MILLIGRAMS 541768 RxNorm TAKE 20 MILLIGRAMS ORAL BEDTIME Fish Oil 1000MG Oral Capsule, Liquid Filled 08/20/2019 03/18/2024 ORAL DAILY 3 CAPSULE 010924 RxNorm TA KE 3 CAPSULE ORAL DAILY Gabapentin 800MG Oral Tablet 08/20/2019 03/18/2024 ORAL TWICE A DAY 1 TABLET 628582 RxNorm TAKE 1 TABLET ORAL TWICE A DAY Lisinopril 20MG Oral Tablet 08/20/2019 03/18/2024 ORAL DAILY 20 MILLIGRAMS 191909 RxNorm TAKE 20 MILLIGRAMS ORAL DAILY Loratadine 10MG Oral Tablet 08/20/2019 01/02/2022 ORAL DAILY 10 MILLIGRAMS 759317 RxNorm TAKE 10 MILLIGRAMS ORAL DAILY Multiple Vitamin Formula Oral Tablet 08/20/2019 03/18/2024 ORAL DAILY 1 unit(s) 2621206 RxNorm TAKE 1 E ACH ORAL DAILY Pramipexole Dihydrochlorid e 0.125MG Oral Tablet 08/20/2019 09/30/2023 ORAL BEDTIME 2 TABLET 109183 RxNorm TAKE 2 TABLET ORAL BEDTIME Probiotic 250MG Oral Capsule 08/20/2019 01/02/2022 ORAL DAILY 3 TABLET 259927 RxNorm TAKE 3 TABLET ORAL DAILY glipiZIDE 10MG Oral Tablet, Extended Release 08/20/2019 Unknown ORAL DAILY 10 MILLIGRAMS 149847 RxNorm TAKE 10 MILLIGRAMS ORAL DAILY metFORMIN HCl 1000MG Oral Tablet 08/20/2019 Unknown ORAL TWICE A DAY WITH FOOD 1000 MILLIGRAMS 758432 RxNorm TAKE 1000 MILLIGRAMS ORAL TWICE A DAY WITH FOOD Cephalexin 500MG Oral Tablet 08/20/2019 01/02/2022 ORAL THREE TIMES A DAY 1 TABLET 090398 RxNorm TAKE 1 TABLET ORAL THREE TIMES A DAY Keflex 500MG Oral Capsule 01/02/2022 09/30/2023 ORAL THREE TIMES A DAY 1 CAPSULE 518879 RxNorm TAKE 1 CAPSULE ORAL THREE TIMES A DAY Nystatin 710536M/1ML Oral Suspension 01/02/2022 09/30/2023 ORAL FOUR TIMES A DAY 5 mL 054042 RxNorm TAKE 5 mL ORAL FOUR TIMES A DAY Cephalexin 500MG Oral Tablet 03/17/2024 03/19/2024 ORAL TWICE A DAY 1 TABLET 800793 RxNorm TAKE 1 TABLET ORAL TWICE A DAY x 7 days Acetaminophen 500MG Oral Tablet 03/18/2024 03/18/2024 ORAL NEEDED EVERY 6 HOURS 2 TABLET 536713 RxNorm TAKE 2 TABLET (OR 3 TABLETS regular strength 325mg) ORAL EVERY 6 HOURS FOR 1-2 DAYS THEN NEEDED FOR Fever/Pain (NEXT DOSES 6AM AND 12 NOON) Ibuprofen 200MG Oral Tablet 03/18/2024 03/18/2024 ORAL EVERY 6 HOURS 2 TABLET 029338 RxNorm TAKE 2 TABLET ORAL EVERY 6 HOURS FOR 24 HOURS THEN NEEDED. (NEXT DOSES at 4AM AND 10AM) Aspirin 81MG Oral Tablet, Enteric Coated 03/19/2024 Unknown ORAL DAILY 81 MILLIGRAMS 571903 RxNorm TAKE 81 MILLIGRAMS ORAL DAILY Carvedilol 6.25MG Oral Tablet 03/19/2024 Unknown ORAL TWICE A DAY 6.25 MILLIGRAMS 19990607 RxNorm TAKE 6.25 MILLIGRAMS ORAL TWICE A DAY Fish Oil Orange-3 1000 MG Oral Capsule, Liquid Filled 03/19/2024 Unknown ORAL DAILY 1000 MG RxNorm TAKE 10 00 MG ORAL DAILY Gabapentin 600MG Oral Tablet 03/19/2024 Unknown ORAL TWICE A DAY 600 MILLIGRAMS 789673 RxNorm TAKE 600 MILLIGRAMS ORAL TWICE A DAY Lisinopril 10MG Oral Tablet 03/19/2024 Unknown ORAL DAILY 10 MILLIGRAMS 694906 RxNorm TAKE 10 MILLIGRAMS ORAL DAILY Multiple [...] Tablet 03/19/2024 Unknown ORAL BEDTIME 0.5 MILLIGRAMS 796130 RxNorm TAKE 0.5 MILLIGRAMS ORAL BEDTIME Ventolin HFA 0.09MG/1Actuat ion Inhalation Suspension 03/19/2024 Unknown INHAL ATION NEEDED EVERY 4 HOURS 2 unit(s) 022096 RxNorm 2 EACH INHALATION NEEDED EVERY 4 HOURS Victoza 6MG/1ML Subcutaneous Solution 03/19/2024 Unknown SUBCU TANEO US 1.8 MILLILITERS 930479 RxNorm INJECT 1.8 MILLILITERS SUBCUTANEOU S Cefdinir [...] Code Code System URINARY TRACT INFECTION active 682982 05 SNOMED-CT HYPOTENSION active 53831872 SNOMED-C T HYPOKALEMIA active 43453687 SNOMED-C T SEPSIS active 86453593 SNOMED-CT CIRRHOSIS - NON-ALCOHOLIC 01/02/2022 resolved 266 573900 SNOMED-CT HTN 08/20/2019 resolved 99740653 SNOMED-CT HIGH CHOLESTEROL 10/01/2023 resolved 86222765 SN OMED-CT PERSONAL HISTORY OF BLADDER CA 08/20/2019 resolved 405744910 SNOMED-CT NON-INSULIN DEPENDENT DIABETES MELLITUS 08/20/2019 resolved 02816754 SNOMED-CT 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
--- OUTSIDE RECORDS SUMMARY | 2024-05-18 17:02 | XMS_ITS ---
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 - Collect Da te/Time: 10/03/2020 14:03 [facility] ID: [id number] [address] [place] [address], [address] LOINC: 43412-0 Test Value Unit Reference Range Code Code System Flag TROPONIN-I < 0.017 ng/mL L=0.000 H=0.060 08694-9 LOINC COMPREHENSIVE METABOLIC PANE L (CMP) - Collect Date/Time: 10/03/2020 14:03 [facility] ID: [id number] [address] [place] [address], [address] LOINC: 29689-4 Test Value Unit Reference Range Code Code [...] H=34 2028-9 LOINC ANION GAP 8.8 mmol/L 71304-2 LOINC CALCIUM SERUM 9.6 mg/dL L=8.2 H=10.2 77623-3 LOINC BILIRUBIN TOTAL 0.6 mg/dL L=0.0 H=1.3 1975-2 LOINC ALK. PHOS. 87 U/L L=46 H=116 6768-6 LOINC SGOT (AST) 22 U/L L=15 H=37 1920-8 LOINC SGPT (ALT) 33 U/L L=12 H=78 1742-6 LOINC TOTAL PROTEIN 7.3 gm/dL L=6.0 H=8.0 2885-2 LOINC ALBUMIN 3.9 gm/dL L=3.4 H=5.0 1751-7 LOINC AGE 80 years eGFR (non-Afr.Amer.) 76 mL/min 96880-5 LOINC eGFR (Afr-Liberian) 92 mL/min 80396-0 LOINC CBC W/ DIFFERENTIAL - Collec t Date/Time: 10/03/2020 14:03 [facility] ID: [id number] [address] [place], [place], [address] LOINC: 61290-8 Test Value Unit Reference Range Code Code [...] D Saturday, October 03, 2020 2:42:30 PM 144661 [id number] Electronically Reviewed and Signed By: DYLAN SHER M.D. RADIOLOGIST 10/05/20 08:11 Copy for: SALLIE DENISE MD via modem Copy for: KATHIE ARTEAGA MD via modem DISCHARGED Social History Type Status Start Date End Date Code Code Syst em Smoking History Never smoker (Never Smoked) 811648158 SNOMED CT Sex Female Medications Medication Start Date End Date Route Frequency Dose Code Code System Medication Instructions Home Meds Amitriptyline 50MG Oral Tablet 08/20/2019 01/02/2022 ORAL BEDTIME 50 MILLIGRAMS 509224 RxNorm TAKE 50 MILLIGRAMS ORAL BEDTIME Atorvastatin Calcium 20MG Oral Tablet 08/20/2019 Unknown ORAL BEDTIME 20 MILLIGRAMS 152250 RxNorm TAKE 20 MILLIGRAMS ORAL BEDTIME Fish Oil 1000MG Oral Capsule, Liquid Filled 08/20/2019 03/18/2024 ORAL DAILY 3 CAPSULE 268845 RxNorm TA KE 3 CAPSULE ORAL DAILY Gabapentin 800MG Oral Tablet 08/20/2019 03/18/2024 ORAL TWICE A DAY 1 TABLET 515481 RxNorm TAKE 1 TABLET ORAL TWICE A DAY Lisinopril 20MG Oral Tablet 08/20/2019 03/18/2024 ORAL DAILY 20 MILLIGRAMS 513095 RxNorm TAKE 20 MILLIGRAMS ORAL DAILY Loratadine 10MG Oral Tablet 08/20/2019 01/02/2022 ORAL DAILY 10 MILLIGRAMS 126888 RxNorm TAKE 10 MILLIGRAMS ORAL DAILY Multiple Vitamin Formula Oral Tablet 08/20/2019 03/18/2024 ORAL DAILY 1 unit(s) 7099061 RxNorm TAKE 1 E ACH ORAL DAILY Pramipexole Dihydrochlorid e 0.125MG Oral Tablet 08/20/2019 09/30/2023 ORAL BEDTIME 2 TABLET 150340 RxNorm TAKE 2 TABLET ORAL BEDTIME Probiotic 250MG Oral Capsule 08/20/2019 01/02/2022 ORAL DAILY 3 TABLET 803669 RxNorm TAKE 3 TABLET ORAL DAILY glipiZIDE 10MG Oral Tablet, Extended Release 08/20/2019 Unknown ORAL DAILY 10 MILLIGRAMS 536150 RxNorm TAKE 10 MILLIGRAMS ORAL DAILY metFORMIN HCl 1000MG Oral Tablet 08/20/2019 Unknown ORAL TWICE A DAY WITH FOOD 1000 MILLIGRAMS 684130 RxNorm TAKE 1000 MILLIGRAMS ORAL TWICE A DAY WITH FOOD Cephalexin 500MG Oral Tablet 08/20/2019 01/02/2022 ORAL THREE TIMES A DAY 1 TABLET 223344 RxNorm TAKE 1 TABLET ORAL THREE TIMES A DAY Keflex 500MG Oral Capsule 01/02/2022 09/30/2023 ORAL THREE TIMES A DAY 1 CAPSULE 728732 RxNorm TAKE 1 CAPSULE ORAL THREE TIMES A DAY Nystatin 537754M/1ML Oral Suspension 01/02/2022 09/30/2023 ORAL FOUR TIMES A DAY 5 mL 889779 RxNorm TAKE 5 mL ORAL FOUR TIMES A DAY Cephalexin 500MG Oral Tablet 03/17/2024 03/19/2024 ORAL TWICE A DAY 1 TABLET 892247 RxNorm TAKE 1 TABLET ORAL TWICE A DAY x 7 days Acetaminophen 500MG Oral Tablet 03/18/2024 03/18/2024 ORAL NEEDED EVERY 6 HOURS 2 TABLET 427362 RxNorm TAKE 2 TABLET (OR 3 TABLETS regular strength 325mg) ORAL EVERY 6 HOURS FOR 1-2 DAYS THEN NEEDED FOR Fever/Pain (NEXT DOSES 6AM AND 12 NOON) Ibuprofen 200MG Oral Tablet 03/18/2024 03/18/2024 ORAL EVERY 6 HOURS 2 TABLET 094799 RxNorm TAKE 2 TABLET ORAL EVERY 6 HOURS FOR 24 HOURS THEN NEEDED. (NEXT DOSES at 4AM AND 10AM) Aspirin 81MG Oral Tablet, Enteric Coated 03/19/2024 Unknown ORAL DAILY 81 MILLIGRAMS 255483 RxNorm TAKE 81 MILLIGRAMS ORAL DAILY Carvedilol 6.25MG Oral Tablet 03/19/2024 Unknown ORAL TWICE A DAY 6.25 MILLIGRAMS 374774 RxNorm TAKE 6.25 MILLIGRAMS ORAL TWICE A DAY Fish Oil [place]-3 1000 MG Oral Capsule, Liquid Filled 03/19/2024 Unknown ORAL DAILY 1000 MG RxNorm TAKE 10 00 MG ORAL DAILY Gabapentin 600MG Oral Tablet 03/19/2024 Unknown ORAL TWICE A DAY 600 MILLIGRAMS 470183 RxNorm TAKE 600 MILLIGRAMS ORAL TWICE A DAY Lisinopril 10MG Oral Tablet 03/19/2024 Unknown ORAL DAILY 10 MILLIGRAMS 803201 RxNorm TAKE 10 MILLIGRAMS ORAL DAILY Multiple [...] Tablet 03/19/2024 Unknown ORAL BEDTIME 0.5 MILLIGRAMS 595273 RxNorm TAKE 0.5 MILLIGRAMS ORAL BEDTIME Ventolin HFA 0.09MG/1Actuat ion Inhalation Suspension 03/19/2024 Unknown INHAL ATION NEEDED EVERY 4 HOURS 2 unit(s) 886411 RxNorm 2 EACH INHALATION NEEDED EVERY 4 HOURS Victoza 6MG/1ML Subcutaneous Solution 03/19/2024 Unknown SUBCU TANEO US 1.8 MILLILITERS 802176 RxNorm INJECT 1.8 MILLILITERS SUBCUTANEOU S Cefdinir [...] Code Code System URINARY TRACT INFECTION active 307797 05 SNOMED-CT HYPOTENSION active 00225744 SNOMED-C T HYPOKALEMIA active 45129866 SNOMED-C T SEPSIS active 66532932 SNOMED-CT CIRRHOSIS - NON-ALCOHOLIC 01/02/2022 resolved 266 462100 SNOMED-CT HTN 08/20/2019 resolved 91585857 SNOMED-CT HIGH CHOLESTEROL 10/01/2023 resolved 16270258 SN OMED-CT PERSONAL HISTORY OF BLADDER CA 08/20/2019 resolved 003277522 SNOMED-CT NON-INSULIN DEPENDENT DIABETES MELLITUS 08/20/2019 resolved 81788786 SNOMED-CT 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 175175381 SNOMED-CT Allergies and Adverse Reactions Allergy Substance Reaction Severity Start Date Concern Status Co de Code System CODEINE Active 4883 RxNorm Plan of Treatment PFT COMPLETE W [...]
== END 2024-05-18 16:46 | disposition home or self-care (01) ==
LOC: NCHCN 16:45
PROVIDERS: PCP Family Medicine; Visit Provider Family Medicine
DX: R30.0 Dysuria (principal); B96.4 Proteus (mirabilis) (morganii) as the cause of diseases classified elsewhere
CPT/HCPCS: 87077; 87086; 87186

== ENCOUNTER 2024-12-17 15:54 | Outpatient (REF) | payer MEDICARE, SELFPAY ==
[2024-12-17 21:06] LABS: HCT 34.9 % (36.0-46.0); HGB 11.4 g/dL (11.2-15.7); MCH 30.1 pg (27.0-33.0); MCHC 32.7 % (32.0-36.0); MCV 92 fL (80-95); RBC 3.79 10^6/uL (3.93-5.22); RDW 13.1 % (11.7-14.6); RDW-SD 44.0 fL; WBC 4.23 10^3/uL (4.4-10.8)
[2024-12-17 21:32] LABS: ALT 34 U/L (14-59); AST 34 U/L (15-37); Albumin 3.5 g/dL (3.4-5.0); Alkaline Phosphatase 111 U/L (46-116); Anion Gap 5.6 mmol/L (3-11); BUN 21 mg/dL (7-18); Bilirubin, Total 0.9 mg/dL (0.2-1.0); CO2 30.4 mmol/L (21.0-32.0); Calcium 9.3 mg/dL (8.5-10.1); Chloride 106 mmol/L (98-107); Estimated GFR 73.06 (mL/min/1.73m2); Glucose 151 mg/dL (74-106); Lipase 62 U/L (<78); Potassium 3.1 mmol/L (3.5-5.1); Sodium 142 mmol/L (136-145); Total Protein 6.7 g/dL (6.4-8.2)
[2024-12-17 21:37] LABS: Platelet Count 61 10^3/uL (130-400)
[2024-12-17 21:55] LABS: TSH 1.71 uIU/mL (0.36-3.74)
== END 2024-12-17 15:55 | disposition home or self-care (01) ==
LOC: NCHCN 15:54
PROVIDERS: PCP Family Medicine; Visit Provider Family Medicine
DX: K52.9 Noninfective gastroenteritis and colitis, unspecified (principal)
CPT/HCPCS: 80053; 82784; 83516; 83690; 85027; 84443

== ENCOUNTER 2025-02-02 21:46 | Outpatient (REF) | payer MEDICARE, SELFPAY ==
[2025-02-02 21:06] LABS: COMMENT (LAB VIEW ONLY) 71.21 mg/dL; Microalb ug/mg Crea 29.6 ug/mg Cr
== END 2025-02-02 21:47 | disposition home or self-care (01) ==
LOC: NCHCN 21:46
PROVIDERS: PCP Family Medicine; Visit Provider Family Medicine
DX: E11.8 Type 2 diabetes mellitus with unspecified complications (principal)
CPT/HCPCS: 82043; 82570

== ENCOUNTER 2025-03-18 11:00 | Outpatient (REF) | payer MEDICARE, SELFPAY ==
[2025-03-19 13:20] LABS: Bacterial Vaginosis (BV) Negative (Negative); Candida glabrata Positive (Negative); Candida species group Positive (Negative)
== END 2025-03-18 11:01 | disposition home or self-care (01) ==
LOC: NCHCN 11:00
PROVIDERS: PCP Family Medicine; Visit Provider Family Medicine
DX: R35.0 Frequency of micturition (principal); N89.8 Other specified noninflammatory disorders of vagina; B96.29 Other Escherichia coli [E. coli] as the cause of diseases classified elsewhere
CPT/HCPCS: 81513; 87077; 87481; 87661; 87086; 87186